=== PATIENT | male | born 1960 | race Caucasian/White ===

== ENCOUNTER 2023-08-16 07:28 | Outpatient (OUT) | payer MEDICARE, MEDICAID, SELFPAY ==
--- NOTE | 2023-08-16 07:56 | VEIN_ITS ---
Patient Name: YRN RICARDO MR#: [id number] : 1960 Exam Date: 08/16/2023 Ordering Doctor: RADHA BROWN RADIOLOGY REPORT PROCEDURE: FACILITY [facility] VEIN CENTER - OFFICE VISIT INITIAL COMPARISON: None. PROGRESS NOTES: [age] year old male who presents with a 11 year history of burning, itching, heaviness, with recent nonhealing wound. The patient's right leg symptoms are worse than the left. There has been a progression of symptoms over time. This increases with prolonged dependency. The patient describes an improvement with rest, elevation, support stockings. The patient denies any signs and symptoms to suggest arterial ischemia. The patient describes a family history of: Unknown family history. The patient has drinking and smoking history of : None. Patient has a past medical history significant for COPD, peripheral vascular disease, deep vein thrombosis, hypothyroidism, obesity. The patient has a history of deep venous thrombus within the right leg. See separate history and physical for medication list. No prior treatment for varicose or spider veins. Current use of compression stockings. After review of nurse notes, history and physical exam I discussed at length the pathophysiology of venous hypertension and possible treatments, therapies and strategies available. We discussed at length the importance of elevating the lower extremities above the level of the heart, increased physical activity and compression stocking use. Ultrasound venous reflux study performed today was discussed at length with the patient. The report demonstrates marked dilation and reflux of the great saphenous veins bilaterally. Moderate abnormal dilation and reflux within small saphenous veins bilaterally. Several large claims administrator veins with abnormal reflux within distal lower extremities (claims administrator veins are adjacent to the right lower extremity wounds and near area of discoloration within left lower extremity). PHYSICAL EXAM: The right leg demonstrates several varicosities, scattered spider veins, open ulceration, marked edema, distal lower extremity skin discoloration. The left leg demonstrates several varicosities, scattered spider veins, no ulceration, marked edema, distal lower extremity skin discoloration. Both thighs, legs and feet were symmetrically warm to the touch. Good posterior tibial and dorsalis pedis pulses were present bilaterally. VEIN/ Facility [facility] Comprehensive IMPRESSION: 1. Marked bilateral lower extremity venous insufficiency 2. Bilateral lower extremity varicose veins 3. Marked bilateral lower extremity subcutaneous edema 4. No known flow significant arterial disease 5. CEAP: C6, DP, AP, OH PLAN: 1. Continued use of compression stockings 2. Elevated legs and increased physical activity symptomatic relief 3. Endovenous laser ablation of right great saphenous, left great saphenous, right small saphenous, left small saphenous veins. 4. Endovenous laser ablation of distal right lower extremity claims administrator veins and distal left lower extremity claims administrator veins. 5. Microfoam chemical ablation of incompetent branch saphenous varicosities bilaterally and sclerotherapy as needed for reticular veins. Nurse notes, history and physical were reviewed and confirmed, see attached forms. The nurse was present throughout the physical exam and consultation Dictated by: Herman Patiño M.D. on 08/16/2023 at 11:00 Approved by: Herman Patiño M.D. on 08/16/2023 at 11:14
--- NOTE | 2023-08-16 07:56 | VEIN_ITS ---
Patient Name: YRN RICARDO MR#: [id number] : 1960 Exam Date: 08/16/2023 Ordering Doctor: RADHA BROWN RADIOLOGY REPORT PROCEDURE: VC EXT VENOUS REFLUX YOAN LMTD COMPARISON: None. INDICATIONS: Chronic venous insufficiency I87.2 TECHNIQUE: Duplex imaging of the lower extremity to assess the deep and superficial venous system for the presence of deep or superficial venous incompetence and to document the location and severity of disease. The study includes evaluation of the great saphenous vein (GSV), anterior accessory saphenous vein (AASV) and small saphenous vein (SSV). Patient scanned in reverse Trendelenburg and standing. FINDINGS: RIGHT LOWER EXTREMITY: Saphenofemoral Junction Reflux: Yes 9.4mm 1.6 sec GSV: Diam (mm) Reflux/ Time (sec) Proximal Thigh 11.0 Yes 4.6 Mid Thigh 9.9 Yes 3.5 Distal Thigh 10.5 Yes 2.1 Prox Calf 12.4 Yes 1.7 Mid Calf 6.4 Yes 4.1 Saphenopopliteal Junction Reflux: 5.7mm Yes 0.9 SSV: Proximal Calf 5.5 Yes 0.9 Mid Calf 5.8 Yes 0.6 AASV: Not present Proximal Thigh Mid Thigh Distal Thigh Thrombi: No acute or chronic thrombus. Compressibility: Normal. Flow: Mild deep venous reflux. Preforator: Mid medial lower leg 7.8mm with 1.0s reflux. Proximal medial lower leg 5.0 mm with 1.5s reflux. Mid posterior calf near wound 6.0mm with 0.5s reflux. Tech Note: Incompetent varicose vein mid medial lower leg measures 4.6 mm with 0.7s reflux. Varicose vein medial knee measures 4.0 mm with 2.2s reflux. Varicose vein anterior mid lower leg measures 4.2 mm with 1.5s reflux. Varicose vein mid posterior calf off SSV measures 5.4 mm with 0.9s reflux. LEFT LOWER EXTREMITY: Saphenofemoral Junction Reflux: Yes 11.0 mm 2.0 sec GSV: Diam (mm) Reflux/Time (sec) Proximal Thigh 8.7 Yes 3.9 Mid Thigh 7.8 Yes 4.7 Distal Thigh 8.6 Yes 1.8 Prox Calf 6.3 Yes 0.5 Mid Calf 4.3 Yes 0.5 Saphenopopliteal Junction Relux: 5.6 mm Yes 3.0 SSV: Proximal Calf 6.5 Yes 1.9 Mid Calf 5.7 Yes 0.3 AASV: Not present Proximal Thigh Mid Thigh Distal Thigh Thrombi: No acute or chronic thrombus. Compressibility: Normal. Flow: Severe deep venous reflux. Photographs Curator: Dist medial/posterior lower leg measures 6.3 mm with 1.8s reflux. Tech Note: Incompetent varicose vein proximal posterior calf measures 7.2 mm with 0.5s reflux. Varicose vein mid/distal posterior calf measures 6.7 mm with 1.9s reflux. CONCLUSION: 1. Marked dilation and reflux within great saphenous veins bilaterally. 2. Abnormal dilation and reflux within small saphenous veins bilaterally. 3. 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 Dictated by: Herman Patiño M.D. on 08/16/2023 at 09:50 Approved by: Herman Patiño M.D. on 08/16/2023 at 11:00
== END 2023-08-16 07:29 | disposition home or self-care (01) ==
PROVIDERS: PCP Podiatrist Foot & Ankle Surgery; Visit Provider Podiatrist Foot & Ankle Surgery
DX: I83.813 Varicose veins of bilateral lower extremities with pain (principal)
CPT/HCPCS: 93970; G0463

== ENCOUNTER 2023-09-02 08:28 | Outpatient (OUT) | payer MEDICARE, MEDICAID, SELFPAY ==
--- NOTE | 2023-09-02 08:31 | VEIN_ITS ---
The [address] [address] Patient Name: YRN RICARDO MRN: [id number] date: 1960 Sex: M Assigned Patient Location: Current Patient Location: Accession/Order Number: [id number] Exam Date: 09/02/2023 08:34 Report Date: 09/02/2023 12:09 At the request of: LEONID SCOTT Procedure: VC Endovenous Ablation 1VeinRT EXAMINATION: VC Endovenous Ablation 1VeinRT HISTORY: Pain due to varicose veins of bilateral legs I83.813 The risks and benefits of the procedure had been previously discussed, and were rediscussed at length. Informed written consent was obtained. Wild Slade RN and Grecia Gardner RDMS assisted. Time out procedure was performed. The right lower extremity was prepared and draped in the usual sterile fashion to allow knee flexion in the sterile field. Duplex ultrasound probe was draped in a sterile cover, sterile transmission gel was used. Venous mapping was performed with the areas of dilation and large tributaries marked. The total length was 72 cm from the entry 5 cm above the ankle to 3 cm below the saphenofemoral junction. The diameter of the right great saphenous vein ranged from 12.4 mm. A 30 gauge needle and 1% buffered lidocaine was used to anesthetize the entry site. A 4 mm incision was made with a scalpel and the saphenous vein was entered percutaneously under direct ultrasound guidance with a micropuncture set, a single stick was successful in gaining access. A micro-guide wire was inserted and the needle removed. A micro-set including a dilator was inserted over the microwire and the needle and dilator were removed. A guide wire was inserted through the micro-set and guided through the saphenous vein to the saphenofemoral junction. The dilator was removed and an introducer sheath was inserted over the wire until the end of the sheath entered the saphenofemoral junction. The dilator and wire were removed and the 600 micron fiber was introduced and placed and positioned so that it extended beyond the sheath and was 3 cm distal to the saphenofemoral or saphenopopliteal junction. Final position of the fiber was determined by ultrasound guidance and duplex imaging. Tumescent anesthetic was delivered by ultrasound guidance. 500 cc of fluid was delivered along the entire course of the saphenous vein. The solution consisted of 1000 cc of normal saline with 40 mL of 1% lidocaine and 20 mL of sodium bicarbonate. A final positioning check was made. The energy source was turned on by means of the foot pedal and the fiber and sheath were withdrawn. The total number of Joules delivered was 3870. The laser was active for 484 seconds under continuous pulse, average laser use of 8 J. Laser start time: 10:06 AM Laser stop time: 10:15 AM Date: 09/02/2023. A duplex ultrasound revealed compressibility and flow at the saphenofemoral junction immediately after the procedure. Hemostasis at the access site was achieved. The skin incision of the saphenous vein was closed with a 4 x 4. A compression stocking was applied. Postop instructions were given. A follow up appointment was recommended and scheduled. The patient tolerated the procedure well. Electronically authenticated by: MARCO LYNN Date: 09/02/2023 12:09
[2023-09-02] MEDS: LIDOCAINE HCL 1% 100 MG/10 ML MDV INJ (08:32)
[2023-09-02] MEDS: 0.9 % SODIUM CHLORIDE 500 ML, LIDOCAINE HCL 20 ML, SODIUM BICARBONATE 10 MEQ INJ (08:32)
== END 2023-09-02 08:29 | disposition home or self-care (01) ==
LOC: VC 08:28
PROVIDERS: PCP Radiology Diagnostic Radiology; Visit Provider Radiology Diagnostic Radiology
DX: I83.813 Varicose veins of bilateral lower extremities with pain (principal)
CPT/HCPCS: 36478

== ENCOUNTER 2023-09-09 11:18 | Outpatient (OUT) | payer MEDICARE, MEDICAID, SELFPAY ==
--- NOTE | 2023-09-09 11:18 | VEIN_ITS ---
Patient Name: YRN RICARDO MR#: [id number] : 1960 Exam Date: 09/09/2023 Ordering Doctor: DR TRINO ISRAEL M.D. RADIOLOGY REPORT PROCEDURE: VC FACILITY EST LMTD VEIN CENTER - OFFICE VISIT FOLLOW UP COMPARISON: None. PROGRESS NOTES: The patient reports no significant problems following intravenous laser ablation of the right great saphenous vein. The patient did not require oral analgesics. The patient has worn his compression stocking. The patient does have difficulty exercising. Physical exam demonstrates some minimal bruising in the medial right thigh. Extensive subcutaneous edema, grossly stable from the prior report. The right great saphenous vein cannot be palpated likely related to patient body habitus. No erythema or warmth to suggest cellulitis or thrombophlebitis. No active ulceration related to the procedure. The patient's lower leg was covered with a dressing Review of the ultrasound performed the same day demonstrates occlusive thrombus extending throughout the treated right great saphenous vein with heat induced thrombus 3 cm from the saphenofemoral junction. No deep vein thrombus. The patient expressed a desire to proceed with treatment of incompetent left great saphenous. VEIN/ Facility EST LMTD IMPRESSION: 1. Successful ablation of the vein right great saphenous vein. 2. Persistent incompetent left great saphenous vein. PLAN: Intravenous laser ablation left great saphenous vein Nurse notes, history and physical were reviewed and confirmed, see attached forms. The nurse was present throughout the physical exam and consultation Dictated by: Trino Israel MD on 09/09/2023 at 12:24 Approved by: Trino Israel MD on 09/09/2023 at 12:26
--- NOTE | 2023-09-09 11:19 | VEIN_ITS ---
Patient Name: YRN RICARDO MR#: [id number] : 1960 Exam Date: 09/09/2023 Ordering Doctor: DR TRINO ISRAEL M.D. RADIOLOGY REPORT PROCEDURE: VC EXT VENOUS RT LMTD COMPARISON: None. INDICATIONS: Phlebitis of superficial vein of rt lower extremity I80.01 TECHNIQUE: Lower extremity nuñez scale and Duplex Doppler evaluation of the deep venous system from the inguinal ligament through the calf veins. FINDINGS: REGION: Right lower extremity. THROMBI: Negative for DVT. Heat induced thrombus in right GSV 3.0 cm from SFJ and extends to distal lower leg. Proximal calf segment of GSV partially compressible. COMPRESSIBILITY: Non-compressible segments corresponding to thrombus FLOW: Areas of no flow corresponding to thrombus CONCLUSION: Post ablation occlusion of the treated right great saphenous vein with heat induced thrombus 3 cm from the saphenofemoral junction Dictated by: Trino Israel MD on 09/09/2023 at 12:08 Approved by: Trino Israel MD on 09/09/2023 at 12:10
--- OUTSIDE RECORDS SUMMARY | 2023-09-09 11:42 | XMS_ITS | CCD ---
Author Organization [facility] Care Team Providers Care Fish Seiner Name Role Phone SERAFIN SHEARER Referring Unavailable LESLY MELCHOR Primary Care Unavailable SERAFIN SHEARER Referring Unavailable LESLY MELCHOR Primary Care Unavailable SERAFIN SHEARER Admitting Unavailable SERAFIN SHEARER Attending Unavailable LESLY MELCHOR Primary Care Unavailable Lesly Melchor Primary Care Provider [phone] CONSUELO DELGADILLO Referring Unavailable LESLY MELCHOR Primary Care Unavailable Lesly Melchor Primary Care Provider Lesly Melchor MD Primary Care Provider [phone] LESLY MELCHOR Referring Unavailable LESLY MELCHOR Primary Care Unavailable OLAF CAIN Attending Unavailab LESLY Concepcion Referring Unavailable LESLY MELCHOR Primary Care Unavailable Dolmegan, Srinivas R Attending Unavailable Dolmegan, Srinivas R Admitting Unavailable LESLY MELCHOR MD Primary Care Unavailable Dolce, Srinvias R Attending Unavailable Dolmegan, Srinivas R Admitting Unavailable LESLY MELCHOR MD Primary Care Unavailable LESLY MELCHOR MD Primary Care Unavailable PETER Redmond Admitting Unavailable PETER Redmond Attending Unavailable Dolce, Srinivas R Attending Unavailable Dolce, Srinivas R Admitting Unavailable LESLY MELCHOR MD Primary Care Unavailable Dolce, Srinivas R Attending Unavailable Dolce, Srinivas R Admitting Unavailable LESLY MELCHOR MD Primary Care Unavailable PETER Redmond Attending Unavailable PETER Redmond Admitting Unavailable LESLY MELCHOR MD Primary Care Unavailable Dolce, Srinivas R Attending Unavailable Dolce, Srinivas R Admitting Unavailable LESLY MELCHOR MD Primary Care Unavailable KAREN ZAPATA, LESLY To Primary Care Unavailable KAREN ZAPATA, LESLY To Attending Unavailable KAREN ZAPATA, LESLY To Primary Care Unavailable Dolce, Srinivas R Admitting Unavailable Dolce, Srinivas R Attending Unavailable Dolce, Srinivas R Attending Unavailable Dolce, Srinivas R Admitting Unavailable KAREN ZAPATA, LESLY To Primary Care Unavailable Dolce, Srinivas R Attending Unavailable Dolce, Srinivas R Admitting Unavailable KAREN ZAPATA, LESLY To Primary Care Unavailable PETER Redmond Attending Unavailable PETER Redmond Admitting Unavailable KAREN ZAPATA, LESLY To Primary Care Unavailable Dolce, Srinivas R Attending Unavailable Dolce, Srinivas R Admitting Unavailable KAREN ZAPATA, LESLY To Primary Care Unavailable KAREN ZAPATA, LESLY To Primary Care Unavailable PETER Redmond Admitting Unavailable PETER Redmond Attending Unavailable Ai Cormier Attending Unavailable [facility] Admitting Unavailable KAREN ZAPATA, LESLY To Primary Care Unavailable KAREN ZAPATA, LESLY To Primary Care Unavailable PETER Redmond Admitting Unavailable PETER Redmond Attending Unavailable KAREN ZAPATA, LESLY To Primary Care Unavailable KAREN ZAPATA, LESLY To Attending Unavailable KAREN ZAPATA, LESLY To Primary Care Unavailable KAREN ZAPATA, LESLY To Attending Unavailable KAREN ZAPATA, LESLY To Primary Care Unavailable KAREN ZAPATA, LESLY To Attending Unavailable Dolce, Srinivas R Attending Unavailable Dolce, Srinivas R Admitting Unavailable KAREN ZAPATA, LESLY To Primary Care Unavailable KAREN ZAPATA, LESLY To Primary Care Unavailable KAREN ZAPATA, LESLY To Primary Care Unavailable KAREN ZAPATA, LESLY To Attending Unavailable KAREN ZAPATA, LESLY To Primary Care Unavailable Dolce, Srinivas R Admitting Unavailable Dolce, Srinivas R Attending Unavailable Melo Quiñones Attending Unavailab Melo Frederick Admitting Unavailab Lesly Concepcion Primary Care Unavailable Allergies Allergy Classification Reported Allergen(s) Allergy Type Date of Onset Reaction(s) Facility (1 source) No Known Medication Allergies; Translations: [No Known Medication Allergies] Propensity to adverse reactions to drug (disorder) [facility] Medications Current Medications Medication Drug Class(es) Dates Sig (Normalized) Sig (Original) acetaminophen 325 mg / HYDROcodone bitartrate 5 mg oral tablet (1 source) Opioid Agonist Start: 03-17-2020 HYDROcodone-aceta minophen (NORCO) 5-325 MG per tablet acetaminophen 325 mg / oxyCODONE hydrochloride 5 mg oral tablet (5 sources) Opioid Agonist Start: 06-16-2020 take 1 tablet by mouth every four hours for pain oxyCODONE-acetami nophen (PERCOCET) 5-325 MG per tablet take 1 tablet by mouth every 4 hours if needed for pain TO LST 30 DAYS 0 06/16/2020 Active Start: 11-18-2018 End: 06-02-2019 take 1 tablet by mouth every four hours as needed oxyCODONE-acetaminophen (PERCOCET) 5-325 MG per tablet Take 1 tablet by mouth every 4 hours as needed. 0 11/18/2018 06/02/2019 Discontinued (Stop Taking at Discharge) take 1 tablet by francesca th every four hours as needed for pain oxyCODONE-acetaminophen (PERCOCET) 7.5-3 25 mg per tablet Take 1 tablet by mouth every 4 (four) hours as needed for pain. 0 Active [id number] actuat albuterol 0.09 mg/actuat metered dose inhaler (5 sources) beta2-Adrenergic Agonist take 2 puff(s) by inhalation every four hours as needed for wheezing albuterol (PROVENTIL HFA;VENTOLIN HFA) 90 mcg/actuation inhaler Inhale 2 puffs every 4 (four) hours as needed for wheezing or shortness of breath. 0 Active take 2 puff(s) by in halation every six hours as needed for wheezing albuterol sulfate HFA 108 (90 Base) MCG/ACT inhaler Inhale 2 puffs into the lungs every 6 hours as needed for Wheezing 0 Active ARIPiprazole 10 mg oral tablet (6 sources) Atypical Antipsychotic Start: 06-02-2019 take 20 mg by mouth once daily 20 mg, Oral, DAILY, First dose on Sat06/02/19 at 0900 Start: 07-05-2018 take 1 tablet by francesca th once daily ARIPiprazole (ABILIFY) 20 MG tablet TAKE 1 TABLET BY MOUTH ONCE DAILY 0 07/05/2018 Active bumetanide 1 mg oral tablet (3 sources) Loop Diuretic Start: 02-01-2020 bumetanide (BUMEX) 1 MG tablet calcium carbonate 1250 mg / cholecalciferol 200 unt oral tablet (2 sources) Vitamin D Start: 02-16-2021 take 1 tablet by mouth once in the morning OYSTER SHELL CALCIUM-VIT D3 500 mg(1,250mg) -200 unit per tablet Take 1 tablet by mouth in the morning and 1 tablet before bedtime. 0 02/16/2021 Active Calcium Carbonate Antacid (TUMS PO) (1 source) Calcium Carbonate Antacid (TUMS PO) Take by mouth 0 Active calcium chloride 0.0014 meq/ml / potassium chloride 0.004 meq/ml / sodium chloride 0.103 meq/ml / sodium lactate 0.028 meq/ml injectable solution (2 sources) Start: 06-01-2019 End: 06-01-2019 lactated ringers infusion cetirizine hydrochloride 10 mg oral tablet (3 sources) Histamine-1 Receptor Antagonist Start: 11-08-2020 take 1 tablet by mouth in the morning cetirizine (ZyrTEC) 10 mg tablet Take 1 tablet (10 mg total) by mouth in the morning. 0 11/08/2020 Active citalopram 10 mg oral tablet (3 sources) Serotonin Reuptake Inhibitor take 1 tablet by mouth in the morning citalopram (CeleXA) 10 mg tablet Take 1 tablet (10 mg total) by mouth in the morning. 0 Active DULoxetine 30 mg delayed release oral capsule (6 sources) Serotonin and Norepinephrine Reuptake Inhibitor Start: 02-14-2021 take 1 capsule by mouth in the morning DULoxetine (CYMBALTA) 30 mg capsule Take 1 capsule (30 mg total) by mouth in the morning. 0 02/14/2021 Active Start: 01-13-2021 take 2 capsules by m outh once daily DULoxetine (CYMBALTA) 60 MG extended release capsule TAKE TWO (2) CAPSULES BY MOUTH ONCE DAILY 0 01/13/2021 Active Start: 06-02-2019 take 1 capsule by mo uth once daily 120 mg, Oral, DAILY, First dose on Sat06/02/19 at 0900 Do not crush or break. May add contents of capsule to apple juice or apple sauce, but not chocolate. Start: 07-23-2018 take 2 capsules by m outh once daily DULoxetine (CYMBALTA) 60 MG extended release capsule Take 120 mg by mouth daily 0 07/23/2018 Active 0.4 ml enoxaparin sodium 100 mg/ml prefilled syringe (2 sources) Low Molecular Weight Heparin Start: 06-02-2019 End: 06-16-2019 enoxaparin (LOVENOX) 40 MG/0.4ML injection Inject 0.4 mLs into the skin 2 times daily for 14 days 28 Syringe 0 06/02/2019 06/16/2019 Active Start: 06-01-2019 enoxaparin (LO VENOX) injection 60 mg 120 actuat fluticasone propionate 0.11 mg/actuat metered dose inhaler (5 sources) Corticosteroid take 1 puff(s) by inhalation in the morning fluticasone propionate (FLOVENT HFA) 110 mcg/actuation inhaler Inhale 1 puff in the morning and 1 puff before bedtime. 0 Active take 1 puff(s) by inhalation twi ce daily fluticasone (FLOVENT HFA) 110 MCG/ACT inhaler Inhale 1 puff into the lungs 2 times daily 0 Active folic acid 1 mg oral tablet (3 sources) Start: 01-26-2021 take 1 tablet by mouth in the morning folic acid (FOLVITE) 1 mg tablet Take 1 tablet (1,000 mcg total) by mouth in the morning. 0 01/26/2021 Active gabapentin 300 mg oral capsule (1 source) Anti-epileptic Agent Start: 02-28-2020 gabapentin (NEURONTIN) 300 MG capsule 1 ml HYDROmorphone hydrochloride 1 mg/ml cartridge (3 sources) Opioid Agonist Start: 06-01-2019 End: 06-01-2019 HYDROmorphone (DILAUDID) 1 MG/ML injection Start: 06-01-2019 End: 06-01-2019 HYDROmorphone (DILAUDID) inj ection 0.5 mg insulin lispro 100 unt/ml injectable solution (2 sources) Insulin Analog Start: 06-01-2019 0-6 Units, Subcutaneous, NIG HTLY, First dose on Sat06/01/19 at 2100 If continuous tube feedings/TPN/NPO, give correction dose based on result, no reduction in dose. If eating or bolus tube feeding: Medium Dose Corrective Algorithm Glucose: Dose: If <139 No Insulin 140-199 1 Unit 200-249 2 Units 250-299 3 Units 300-349 4 Units 350-400 5 Units Above 400 6 Units Start: 06-01-2019 0-12 Units, Subcutaneous, 3 TIMES DAILY WITH MEALS, First dose on Sat06/01/19 at 1300 Medium Dose Corrective Algorithm Glucose: Dose: If <139 No Insulin 140-199 2 Units 200-249 4 Units 250-299 6 Units 300-349 8 Units 350-400 10 Units Above 400 12 Units 1 ml ketorolac tromethamine 30 mg/ml cartridge (1 source) Nonsteroidal Anti-inflammatory Drug, Cyclooxygenase Inhibitor Start: 06-01-2019 End: 06-06-2019 ketorolac (TORADOL) injection 30 mg levothyroxine sodium 0.075 mg oral tablet (6 sources) l-Thyroxine Start: 06-02-2019 take 150 ug by mouth once daily 150 mcg, Oral, DAILY, First dose on Sat06/02/19 at 0700 Tube feeding (TF) interaction, obtain physician order to manage, recommend holding TF for 30 minutes before and after dose. Start: 07-23-2018 take 1 tablet by francesca th once daily levothyroxine (SYNTHROID) 150 MCG tablet Take 150 mcg by mouth Daily 0 07/23/2018 Active take 1 capsule by mo uth in the morning levothyroxine sodium (TIROSINT) 150 mcg capsule Take 1 capsule (150 mcg total) by mouth in the morning. 0 Active loratadine 10 mg oral capsule (3 sources) take 1 capsule by mouth once daily loratadine (CLARITIN) 10 MG capsule Take 10 mg by mouth daily 0 Active LORazepam 0.5 mg oral tablet (5 sources) Benzodiazepine Start: 09-08-2020 take 1 tablet by mouth once daily as needed for anxiety LORazepam (ATIVAN) 0.5 MG tablet TAKE 1 TABLET BY MOUTH ONCE DAILY NEEDED FOR ANXIETY 0 09/08/2020 Active Start: 11-03-2018 LORazepam (ATI VAN) 1 MG tablet TAKE 1/2 TO 1 TABLET BY MOUTH ONCE DAILY NEEDED FOR ANXIETY EVERY 30 DAYS PER OARRS 0 11/03/2018 Active Multiple Vitamins-Minerals (THERAPEUTIC MULTIVITAMIN-MINERALS) tablet (1 source) Multiple Vitamin s-Minerals (THERAPEUTIC MULTIVITAMIN-MINERALS) tablet Take 1 tablet by mouth 0 Active multivitamin capsule (2 sources) take 1 tablet by mouth once daily multivitamin capsule Take 1 tablet by mouth daily. 0 Active ondansetron 4 mg oral tablet (2 sources) Serotonin-3 Receptor Antagonist Start : 06-02 take 1 tablet by mouth once daily as needed for nausea ondansetron (ZOFRAN) 4 MG tablet Take 1 tablet by mouth daily as needed for Nausea or Vomiting 30 tablet 0 06/02/2019 Active Start: 06-01-2019 ondansetron (Z OFRAN) injection 4 mg 24 hr oxybutynin chloride 10 mg extended release oral tablet (5 sources) Cholinergic Muscarinic Antagonist Start: 07-23-2018 take 1 tablet by mouth once daily oxybutynin (DITROPAN-XL) 10 MG extended release tablet Take 10 mg by mouth daily 0 07/23/2018 Active take 1 tablet by francesca th every twenty-four hours in the morning oxybutynin XL (DITROPAN-XL) 10 mg 24 hr tablet Take 1 tablet (10 mg total) by mouth in the morning. 0 Active oxyCODONE hydrochloride 1 mg/ml oral solution (2 sources) Opioid Agonist Start: 06-02-2019 End: 06-09-2019 take 5 mL by mouth every six hours as needed for pain oxyCODONE (ROXICODONE) 5 MG/5ML solution Indications: S/P laparoscopic sleeve gastrectomy Take 5 mLs by mouth every 6 hours as needed for Pain for up to 7 days. 140 mL 0 06/02/2019 06/09/2019 Active Start: 06-01-2019 oxyCODONE (LORETA ICODONE) 5 MG/5ML solution 5 mg pantoprazole 40 mg delayed release oral tablet (1 source) Proton Pump Inhibitor Start: 06-02-2019 pantoprazole (PROTONIX) tablet 40 mg 1 ml promethazine hydrochloride 25 mg/ml injection (1 source) Phenothiazine Start: 06-01-2019 promethazine (PHENERGAN) injection 25 mg rivaroxaban 20 mg oral tablet (4 sources) Factor Xa Inhibitor Start: 03-14-2020 XARELTO 20 MG TABS tablet salmon calcitonin 200 unt/actuat nasal spray (2 sources) Calcitonin Start: 02-14-2021 calcitonin, salmon, (MIACALCIN) 200 unit/actuation nasal spray daily. 0 02/14/2021 Active 3 ml sodium chloride 9 mg/ml injection (2 sources) Start: 06-01-2019 sodium chloride flush 0.9 % injection 10 mL traZODone hydrochloride 100 mg oral tablet (6 sources) Serotonin Reuptake Inhibitor Start: 11-04-2018 take 2 tablets by mouth once daily traZODone (DESYREL) 100 MG tablet Take 200 mg by mouth nightly 2 11/04/2018 Active take 100 mg by mouth once daily trazodone HCl (TRAZODONE ORAL) Take 100 mg by mouth nightly. 0 Active take 200 mg by mouth once daily TRAZODONE HCL PO Take 200 mg by mouth nightly 0 Active verapamil hydrochloride 120 mg extended release oral tablet (3 sources) Calcium Channel Yesika Start: 06-02-2019 take 120 mg by mouth once daily 120 mg, Oral, DAILY, First dose on Sat06/02/19 at 0900 Do not crush or chew. zolpidem tartrate 5 mg oral tablet (5 sources) gamma-Aminobuty christine Acid-ergic Agonist Start: 11-03-2018 take 1 tablet by mouth once at bedtime as needed for sleep zolpidem (AMBIEN) 5 MG tablet TAKE 1 TABLET BY MOUTH AT BEDTIME NEEDED FOR SLEEP EVERY 30 DAYS PER OARRS 0 11/03/2018 Active Completed/Discontinued Medications Medication Drug Class(es) Dates Sig (Normalized) Sig (Original) ceFAZolin (ANCEF) 3 g in dextrose 5 % 100 mL IVPB (1 source) Start: 06-01-2019 End: 06-02-2019 ceFAZolin (ANCEF) 3 g in dextrose 5 % 100 mL IVPB 1 ml heparin sodium, porcine 5000 unt/ml prefilled syringe (1 source) Unfractionated Heparin, Anti-coagulant Start: 06-01-2019 End: 06-01-2019 heparin (porcine) injection 5,000 Units 2 ml midazolam 1 mg/ml injection (1 source) Benzodiazepine Start: 06-01-2019 End: 06-01-2019 midazolam (VERSED) injection 2 mg Start: 06-01-2019 End: 06-01-2019 midazolam (VERSED) injection 2 mg Problems Active Problems Problem Classification Problem Date Documented Da te Episodic/Chronic Anxiety disorders (3 sources) Mixed anxiety and depressive disorder; Translations: [Anxiety disorder, unspecified] Onset: 12-03-2018 12-03-2018 Chronic Chronic obstructive pulmonary disease and bronchiectasis (3 sources) Chronic obstructive lung disease; Translations: [Chronic obstructive pulmonary disease, unspecified] Onset: 12-03-2018 12-03-2018 Chronic Conduction disorders (8 sources) Cardiac pacemaker in situ; Translations: [Presence of cardiac pacemaker] Onset: 08-19-2020 05-14-2023 Chronic Nutritional deficiencies (1 source) Vitamin D deficiency; Translations: [Vitamin D deficiency, unspecified] Onset: 06-24-2020 06-24-2020 Chronic Osteoarthritis (4 sources) Primary gonarthrosis, bilateral; Translations: [Bilateral primary osteoarthritis of knee] Onset: 11-10-2020 11-10-2020 Chronic Other diseases of veins and lymphatics (3 sources) Lymphedema; Translations: [Lymphedema, not elsewhere classified] Onset: 12-03-2018 12-03-2018 Chronic Other nutritional; endocrine; and metabolic disorders (7 sources) Body mass index 40+ - severely obese; Translations: [Morbid (severe) obesity due to excess calories] Onset: 12-03-2018 Resolved: 12-21-2019 12-21-2019 Chronic Phlebitis; thrombophlebitis and thromboembolism (4 sources) H/O: Deep vein thrombosis; Translations: [Personal history of other venous thrombosis and embolism] Onset: 12-03-2018 Episodic Pulmonary heart disease (4 sources) H/O: pulmonary embolus; Translations: [Personal history of pulmonary embolism] Onset: 12-03-2018 Episodic Thyroid disorders (3 sources) Hypothyroidism; Translations: [Hypothyroidism, unspecified] Onset: 12-03-2018 12-03-2018 Chronic Unclassified (2 sources) Drug therapy finding Onset: 12-03-2018 12-03-2018 Unclassified (1 source) Device Check Onset: 05-14-2023 Past or Other Problems Problem Classification Problem Date Documented Da te Episodic/Chronic Essential hypertension (3 sources) Essential hypertension; Translations: [Essential (primary) hypertension] Onset: 9 Resolved: 0 03-21-2020 Chronic Other acquired deformities (2 sources) Karely legged; Translations: [Varus deformity, not elsewhere classified, left knee] Onset: 1 12-21-2020 Episodic Other aftercare (1 source) Drug therapy finding; Translations: [senior living (current) use of anticoagulants] Onset: 9 12-03-2018 Episodic Other circulatory disease (2 sources) History of paroxysmal supraventricular tachycardia; Translations: [Personal history of other diseases of the circulatory system] Onset: 2 04-18-2022 Episodic Other gastrointestinal disorders (1 source) History of sleeve gastrectomy; Translations: [Bariatric surgery status] Onset: 0 06-01-2019 Episodic Other lower respiratory disease (1 source) Restrictive lung disease; Translations: [Other disorders of lung] Onset: 0 06-12-2019 Episodic Other non-traumatic joint disorders (1 source) Pain in left knee; Translations: [Pain in joint, lower leg] Onset: 9 12-03-2018 Episodic Other non-traumatic joint disorders (2 sources) Knee pain Onset: 9 12-03-2018 Episodic Other screening for suspected conditions (not mental disorders or infectious disease) (2 sources) Cardiovascular stress test abnormal; Translations: [Abnormal result of other cardiovascular function study] Onset: 1 08-22-2020 Episodic Residual codes; unclassified (1 source) Obstructive sleep apnea syndrome; Translations: [Obstructive sleep apnea (adult) (pediatric)] Onset: 0 Resolved: 1 12-26-2020 Chronic Residual codes; unclassified (2 sources) Chews tobacco ; Translations: [Tobacco use] Onset: 1 12-21-2020 Episodic Superficial injury; contusion (2 sources) Traumatic blister of lower limb; Translations: [Blister (nonthermal), left lower leg, initial encounter] Onset: 1 11-10-2020 Episodic Syncope (2 sources) Syncope; Translations: [Syncope and collapse] Onset: 1 02-23-2021 Episodic Results Test Name Value Interpretation Reference Range Facility Wound Care Noteon 08-26-2023 Wound Care Note [id number]. [id number] Coding Summaryon 08-23-2023 Coding Summary HTMLBase 64 JowwardjMZu8aXt+PGhl YWQ+VH4PCQMfX91ugEJe fS4pY7HXLUbVGcytVSRE ZJyNViQrjjVoHX5qzPMu ZXJu IC8+SW5cXECrRuwidNHe k8R3vTN9T45pfz5zSLae uJV3GKEgVaZjbgjbs6ag vRq1LXgdQrvuAzZu PCJseT85TEE3bL04Dp56 bIDisUEvq8tepQx5XoXg HKKlYDE6dZjcYNaxk6Te BIOoS17uqHNrp3A9 IGNvbGxhcHNlOyBlbXB0 bM6aQCcrgdkgx0tywqjn Euq4qb52pUSoi9Q9oCK4 Y3PuyjT9VOTthQLi FuhliYSDyS5cqavff6on wsusIkJyZREuIXg8FTo3 RMCyvAmrZrLuKT57YVK1 HBOzveSmH5EaFDSk eYkeSaP2f7R3Xi0DC6HB HzewQ1CNXTUSCArkfUU+ LZ52vq43L0XqEjsrZza0 HIQbWIZ4eGT6oL6s BTQzFQlbz1W1tGM8C8Om ktOoum1gh9ozCKYhLQsp W60ocRFit1E8ZUNiaOD5 UHYapCjuGcHqzB39 Oyc+GGJsaPlux4YcXboq y1uku3ebrUf9ZgobODKr chXlhSlzFHU1z1PdYp3j KSWriBJ5zVE8zD2n LjQwFkO0LQafN627WvQc hYNnMwgiF74nA5XlqEX+ JQWmOfn6MBQzoXbiIQ6m B0SaAIJnojmyxEPv xUxmTK0kZIDnvlfqMBFp jF1vNARnI6q9XdVpFbY0 MWfnZ0VaOLAaxzkkHj64 eZ8dYqJaGwW0NKrj N7MdayI6YKJcyUAyWNpi ELY8P08wz7Q6UDLaYTPb OHM8qOA6pA2zpWqhvron bGVmdDsgdmVydGlj SBdiLYhlF147CNAojNeo PkNvZGluZyBEYXRlOiAg MDQvMTkvMjAyNDwvdGQ+ BOOjFRY0mEpbZHHv wZDhBMdqOc1quDabsAbo KD9lSJLydxpyUYIpfW5n YOEgbGMlfHvaST3cLMTz lncax134AgGkZGI7 XYParBLpC4TxbI9oStHs LWDeWMFzL6BowAYtPFdr G576KTybZlW9HMMsmaIb J2FjZGRsfNjkKcU0 r6B0Uu9Wy2WmrzogG3Og zCQvCfYkMhacMNf3B1Wk PjwvdHI+TZ93WIIqAP78 IUb1BHN6wVlnYQeg USFwT3WteV4tKuYrZUVl ZGRkOyc+PHRhYmxlIHdp ZHRoPScxMDAlJyBzdHls YR4cMo4eNNQqOGBg fDznoDWpUxPub4ivQOFw KZeqTV4bpNubG2QrtCU2 ORTof6g9Gd54C84pB3Gx dXA+SGKtfRT9wRU6 iQ3lOlWbUiM9UWorF027 VqCwbUMgSjwya3jva6lh aHz1JhH4YFSzevLgpBzj COD8t8LnTn46Y80k IHdpZHRoPSIxNSUiIHZh eYqreh6shL3aZg5+PGNv eCA2lOG9dT1zJyGmOoE8 QKybK220XrCdmBId Pjnrm4ene2dmtPx7TyKa TTTaorIywEiwVWL6c3Or Vj80W2IsyYpmp6BnFem9 pw78uWKds0J5tUW9 J3GtSACsvgeqwHZkeRzg LY6dUTNwuxygSXRlvN1d SGTxH3d6XiYlHzB9WLtb Z1MscvL2CGQnaHMa ZJZcoRLJcD9aezjzb7bf lopmLqInPCSbZUd8NAb4 ZVPjbOrrXyAbJSY0NuH0 FXI6yJUpoF7qfKpk sdjkbQ9xOrs+VZG9oEYj sJSILY1oMfksyZK+PHRk ZRY0sJqsVImtVBBchR8u HKYgM6u4TiFlXrF5 YJtwP1WmodT8RCFvfGJd RBVzwWFTbJ2ykvuor8xy kjfkEhVyCIYwDIu1YVx5 LWFsaWduOiBsZWZ0 KgF7BAF0vDXosP4qkCmm yjjxpH8xZgr+QmlydGgg UUA6TUb3W5LoQds3CYBy bQyfVY7alOTwSEml Go3sfPdpfUasIF0nJXRz yhcih785PcXex4ffNBOt zXVqCJjyPFO5M38qe3Q3 GJCvFYMaEXT8pHT4 qV0bzCfzqntmeROqoJvb ahWgnVkxSNlvHDojS372 NJWcoNlcBjPbLLg5R4Vc Ajt8GQOxeCtwOS4p iGCsNPcpWh1klNegfJyu KL4kCZAaijqet023UuKz v4seYIRerWKgLErtCZL3 A83ai2K5TNZfRRQi OCS2sOT4kZ9sjWuxlmph bGVmdDsgdmVydGljYWwt KZegU792JGCudPrvPuAq pRs1L7NlGjl6TDWx jRgvRE4zbNPsZDfxTt5d qXwajXqgJA2yISVaubzx a483ErPru7puFQJjcABb DCjpGGN0B97ap3K5 IABdQVEuQNH4vCN5aQ7j bGlnbjogbGVmdDsgdmVy nWrvWZvpERwqP654BQLn cDsnPlBhdGllbnQg IPbfVTy0F8YpNeufaAK+ UC23WZXsXY53rSKgsXYz y6flaTj6DgKdPCTwQLQ0 tWuoSNups1LjWHDk T80vkKEim0I9WTHsrXpq oLOsTyEjrEZ3iA2bSOqe wcstn7ldegrlQaqml8hp wg48gM51E45iIGjk ZHRoPSIzMCUiIHZhbGln zz5ucB3wXg2+PGNvbCB3 qNX4yI0wONMdTcZ9RXez H653QfOloPHxBnxm p8rag3brdAu7NqY8HAQg sqZchAbwYRM9s5UnXu34 G35wOZioTZBhCSHkAOJv SGGwjNlxrj3ydF1y Ii8+WPAkgQO1vSI0jW9q KlMoJwH1DSagZ852YhAj tUUmLyigJ85gD3LdtVU+ AYJmZla2WFSzhJas EO4xrQPmMBhgNj4wFNE6 HqWfUlFfHDlyV8WbQHVk gsrdrvibrQK5SSRaOIHg mJ68Qm0orLuyIRVu lHNMxP7bsoyuy1mhavkf MhUhGGCeKFq6ORh6OPHi jZlkTbSbOFA1BxC9VOA8 vOSivP2dzLaznvkc qD6eW6WlTGVwoydkSa38 mH9wPoSxEpB2XRexToa+ K3LSIbdjXY6VO4cRQTsh SzwvdGQ+PHRkIHN0 qLljHLfjTUEwqA5kLQDp R1l5QaWpThH3DNaoS8Gw CYObqikoCk99mK5tEtFr GnA3WVvvV6GgwaD4 CQErhZNaSMxqKGJ1V64a u0S3PHKtEHYlVLY4jGP1 tP4dvUanoqfefDMamHfg dmVydGljYWwtYWxp J505RHSbsQtiOkTuZqM3 WmW0JnB0H9ZtTjz7VLIp lAveZJ4cmSEmZOpxYd6m nXrrpXfjQO7bNWVl eppgCHLdaM7zHAYjjPTn wKlhOQ0xSBFjwntln842 ZvDjBQA1SPKloQDwF3Ky rO7fVbLgNKMpIIKb F5QwqTQaSIxxZ740LMgk PhR8QMRzmfGcV3RvROOr qMnaGpC1i7G2Ax60CJJL ZWFyczwvdGQ+PHRk VPO7lQfxZUqmDLTthD1e CMOeF9p6RlOmRqX1QQnc L6RtMUEubsydLp11rF9e KjLzEtZ9WBfoI8Sc vwI5LQGkyUIeZQzhDNQ7 F19mg2S1ASRmQXHxBJA9 zSO2fD3fyBkreeugfVYa dDsgdmVydGljYWwt QRipI626PAYjeUygMc3R SWG8X1TnPqa2PEZjbIim XA3gpZDcJZgzKp5asNpf vYspCV0xOFNjuuiz TRNdyZ6wCPEffNQuxPhj OD8tXOTsuwsmx948SuNs FWZ4YBDztZFkO5IznS1z CoRkBRLuICMgF6Ih zCVkLEbiT557TTmaKsK9 TPBjpeOvN5WjLFYlkSot KfL7n3C9Cv1RWYmxfQV+ OA91cy53P9GxYvhz Rkm1LYJpSGF1vQN8xC8j IAPeHCwxi7A3kQN1P8Ye vgAhki4cb3szWJCzHIbo C87pyNWse9H2GPJh oIF0CJJrjXavPzNrmM04 Oyc+UGNbzWffr5ZuOkgt o8lmp0fmvAe2HaKoOKVk hpNxqCmdRHO5l3Ie Fv35M32xOTouTPRmQIEa RRQoGLFfgFrvev9ztV1t Ii8+JXVrsAZ0cUT7wP2v AtNjXwO3XGsvK509 QpBnbAAwTaeyi3qoe0ns kCf6NfNhLKFyezErnVfc UQZ4n5JkKo14S5OnyLyg o9TxXid1mk94eXJu v1N9aGQ2P5UwFARpqktv vBLmmTrzUL0iCFWdynxj HAWtaD4yGGHvK4q6QmJm HaH3DYiaD4WrkkF1 BFMeiMPlFICqzLCRzX7i fxzke8diuwnuPmRbZXMa PLk9ILm1SAMjsEnnJdAj EXF1KaC9WWY8tAJe cW2fzMmgseuuuA2lQws+ UNu9o7xmaDRtJO8ngQO5 CL49KN97eQLgd2K9pCU9 Z8LhZPAiblnzffmr kEK9ZVSnPZSuoU77Ux4z oQhbVv9gZMUzNEP9SHOi oYPgN4NlfF2cDwMoQAFr LWGjM0PeqLHjZXsk K923DAztTcZ7FAXlnvWs A5QsTVThzQixVwB1c7F7 Ox4JWU35JH15OX29zOQu e8B5aGH4P7CqDERr xmophyaqyIR0JNAaHNQl oS43Vf3mkHnkFg5eRRYh QZG2CLQjcQDdF0GajP0x StWsUGHpZJTmQ9Zk pYMtDOscW399PWbfVvI0 NLAmilMsD7UjABUqgYda RlW9n5J9Be6NAt97UF45 LL07pWQgo8S3dQP3 P1XoCWQgnikngyuwwFS7 HARtGTLnjQ32Fd8hvZkm Ts2nGEUsKNZ5OKVecEJl M0ZmeW9yKyJiRMVv ORWnW8TgpXSjIGwrZ028 DWzbCpX3UJDpunSlD3Ug VRWmmSfjZdJ1a7Z9Yn4C IRelloj9T0NkTigz dHI+IN31YBUgVY05uQFv cMUhd4vxkNx5JrViBONo LFV1qIxcIZqoq6OnAJBm E90xlTEci7G0YZXu bGx (more content not included)... [facility] Noteon 08-19-2023 Wound Care Note [id number]#1. [facility] Coding Summaryon 08-17-2023 Coding Summary HTMLBase 64 BbtqjitrRMm5eTn+PGhl YWQ+KA3JDCWnV85qqPDj rL8dU1NQHJuGCkflLRIQ RWeZBgXvvjQfBZ7gtYXb ZXJu IC8+BT9fYYCtTunvfQWi v1W1fUJ6U27jce1jODjw wKM9KYGbCsAtpnbnt8we aQl6JNsbKticOhGp WOWufG13NLG0fV68Ql32 eOFkvAYxf2ctcSd5ZjCj ZNHuYJD7kScwKBjzp7Ah FEZbF40chICml5Z1 IGNvbGxhcHNlOyBlbXB0 gZ1pWBrbbdqjd9mkqxdb Zrx7jd73aKOhe4D7yLV3 L4PnvmG0ETUguTLw MxnxrSDSjQ6tomtyn1wb mgwiWpXfTZXhYCh9OLs7 FOVjeCkeOyMcAQ17TCI2 ZZLmhaXjF7WhBBXe nGckUoZ2o1M8Bp0KP0DP NhgfF9KSSNAQTAcdsQZ+ YY38ms29H1IrHaqfKeh0 VFDmXUG4qXR9kH0b YPQhEVcbo0I1tIS7Q8Lr fjOwde4mu7vrFFIeJMob B25pcKQpw3Z9PASjlQJ3 EJIryLlsVdEmiY29 Oyc+SOYgfLplx3TuFrkv g3hdb1nufLb2CgzbFHRd gyJbfKniMKY8i7LvMb1i YNJlnKG0eWP2rK9t JmTgHkQ7SWzoC627GpRz gECcRcgpE70lN2EybHY+ YADtEic3WBFmnTpdFE3c Q6IkVWBuphiaaFRx dBwkUU8wERUwggpnNRAx rJ0dSLBqT7m8QpJnRxU7 HWmuF7BxRHJztcvuAd09 rX5pXvOtZmC8PAra F6EthiP1DZEtcJQpCZza IUU5O69lf4A3JGQdCTMx VGR9xKC4mH9yjQatklwb bGVmdDsgdmVydGlj DOycZCjnV003ZEKipRbl PkNvZGluZyBEYXRlOiAg MDQvMTMvMjAyNDwvdGQ+ JKTkBLY0oItjJQJl bBVuWMwkRh5cgWdorOcm PZ0bAKOprythJFQqsJ6p EVFrbJUruBkxKW0oTTBp zibkz538SzBxWNB4 QDYqqYCkX4KakQ6sTnRr AQPsNJXtC4RqjHBzNIgx T992PIgdFwG1OQKxfuTq Z1IdLASfeIctKlT4 l5R1Pt8Zl9XtiuuwW6Pb aFWnVuDbAlsuQJa3S1Ma PjwvdHI+XY50OPTwSQ04 SXj4JYE6iRdpAAqx HKYyT5AuaI4cVnRhSYMq ZGRkOyc+PHRhYmxlIHdp ZHRoPScxMDAlJyBzdHls YD8kPk0dYOWcFOIs qBoihBFcRlRpl4niNHNx OUusFD5uwZlnL2OtgUD2 MMTgg8o1Vo87T10uR5Rq dXA+DCOpaHY8aGE6 mD7aAlKtAxF9TIesK352 MsVyiLEqTkenk5ttf3wq yBb5XuG8OXTythZkpYbs HBD6a0SrLw13Z60d IHdpZHRoPSIxNSUiIHZh dUctqt4uqY0eIs2+PGNv kPG5uHB7bG3kFgAuWpC7 KAnmO205YqKpkOZj Piuhf1lma1lxbSz7YuTq ZMRzvgJcmBkmHPL4s0Rg Uz67A5ZvkObtq9GeDtf7 pd89sFYme2O6jTP6 Q4JkLKJjuiwpxSLazDri AI8kMBAnbwohJUIysK1j VDCaX5d8YoPkLgR8EVls I6GhsfS0IDHdsDUr VBEucTKIcY0gdiovp6gb yevjUpUuPJOrPBs7ZSd1 TQJooDalLsGfMNP9PrA7 QGG9hYWycU9jeMjk zgscfW6bIev+CDT4eCAu yWIDSL5gYazpwWF+PHRk FDZ5bMwlDZjcRJTnlV5y WOGcI7l0XgBkOfG5 OXrzE7UvkyP0CYJdeMSf ECPyzASGyR2kexrvf7ze cykcFuOtXCLnMTd3OAj7 LWFsaWduOiBsZWZ0 GiO2RVL0vGRzcK2ogLqd uxjofG6qPbe+QmlydGgg GEG7WRp5K1CbBna9VPBr vYcxZW7wsPVtCYlu Ba6tfJrnwFpbKC7kKSWa ixbgd265NmZnp1rlYBGm dZBxJCgvJGT7Q43zx0S6 GFVdXYVrTIQ1bSZ0 eM3xmPbhwtcnxUCqhGje deXpfDbtUSjkMHbuZ960 STEexEbcPgEsZBe5T0Oa Pyr9PXVqmVlaAX6g rSMpMLrmGl5hcOkbwRnc WM8rMHAlnmvis641SeXa y9fbEUOgsCMsXTyeMEZ1 I47jz4G6CWOiTABc EEI3xSE9tV7ikOxwvxdt bGVmdDsgdmVydGljYWwt UGiuU101SIXolDvdDzCz xIi4R4FnRyh4VFMl aKxsOR0irCVzSIonJy2a wDwesBonZS8uJFNeobol m735ErRve3zqDRMvtBOh FLjhHWD0O69ct0V2 WXAuMIIeRHH8jEE7tD0a bGlnbjogbGVmdDsgdmVy vVigMSbiVIvmR828VERa cDsnPlBhdGllbnQg KAifUXb8E2DhNhhnlPS+ FI54CNXcLL28nVKufWHs u1tteBn4DvMtBZDzWEW5 cJxzZRlsb1PkJVVb Y08bzGLkd5D1NFJvvPcw pKOjDcDzjKI2uH9eTKjb niugc3sbrjnhVknxf7vo oc46vF46C25bCPlk ZHRoPSIzMCUiIHZhbGln uf8soH7xGc4+PGNvbCB3 zPT6iK5xFLMhPzN4VXbc S444RdHtqCKiQxdw w5enf6emrLq2RvJ5WTDv svKotBzkEAT0u3TkPe85 E60wSDabQXWjYKNmMHNq XOAdzPlosi2mcE3n Ii8+TVDifZN6iZM2eG1e GdIrRbB7FIuhC246UpLu bVZcRsivX42fP2BfzJI+ SDFsCjg4XZQxyShz NR8fzGRwTGojLu2nPMY0 FxLlHkBjLTvmP2PhDZDu sedajctajUE5SYMeDBWm dP19On0lfKzkCTYu aXJMvI3qosqkr6jsywnf HbQfDPFmDPq6UMx3TXVd eNusWiRzNLV3LcM9YIC4 jOYdsO8kqAkrynxb lN8cD1YnETUepikmNx39 mF7aShWjGhI9SDlgUyr+ X5UMAlafJR5WN0qLFXqo SzwvdGQ+PHRkIHN0 aBphXUyiAQDwqQ4jCPBb U0g9CdDqMsL2MOxqT2Uq KESchjtiEy37zQ0nSmEp HzJ1TIhbM3YynqX6 HBVelWGaLOowPWA5L07o t8J0TCZmHTMxXTF6zDO8 gH3jcAtzsqayyPCztBdb dmVydGljYWwtYWxp F731TTPakPzwHkIbWnA5 JsP5GzG6Z5SxTom5ULEw gTzmVB7jvUWwTGqwLz4l nOlmxUhoLU7hIFPb avdhWRWygH9kDENnbXDl pSkoFU7tVYKremafo977 DdPwIYM8AXNxxUTtB7Gw aY3hAcZsEAVhUIVd M5OlzWPtOErtT506YIhy JrJ5BKSuihLlJ2ToCNUv lSwqQrH9d0Y6Fx61AZXF ZWFyczwvdGQ+PHRk QCR2kHkiHDrlNAPqlA9j JYHcQ7v4SyFlEaV6OOmr X4GjHTFxmakxDx92iM5m AtHvBcP7KJxgY2Ft umN3RWDqlNQmFWzfJIW2 B54lw8B3TJIsSZTwZJI1 jJP5fA5vdJbgwxmboMLx dDsgdmVydGljYWwt XHejD773EGNblAqeJb2L QHH1B4MxRoe0ZKPojPyd ZN5kzBHbUKhwIl2adVrv cWboZA0hDGXvdajr RAHicH0pLMJbmPOmmBub HM8lUTJpqgysf305CkFw SIE0INJveUMsO3MznG7n MxBnUVDiBPCfL2Li oUVkVNrsJ452BAqcIeN7 KYXxknHuU5ByQOWtbZoj FsI6n4S5Qv3YVZuuqWF+ TB06sn04I5NlZcyo Hoj3STDoPBM8zTD5oP6c TOCzHWtze3S8gLG7T2Zc htNhfu4fg2ohVKRqEOdw M05cbWKxt7U7ZNOn nZR9OXZjpUwrLkHzbV86 Oyc+LHZwjUluy3NtSnkj g8acj2yktPz2IhRsGUHv msWapLfzSXJ8y7Zy Zu23Z87dEUgwQSXqTTFe TYMkGSFdyUifml4wwJ3m Ii8+MUJscYZ3nFE8sD2v BlKkMoC4NAmfR125 SdGowDCtPvyrd0dlo7kb uFi0BpJkAWOcrzArzTcb OGC4e7PqBp77T5MxuDdj b7IcHyu1tz31vXJp o8L1hBR2O7VjBKCeiyde nFZjhMbsMH2sGQUyzvov HUSvpC0hOIBzN3j1UmDv MiV0POuzG9ZphmD3 WPOcgWVeOFGygPOMrV8o bakql5tmcxluMhHjLHIj XDh7RPm8ASZilHrtIkXm KQC4CxC0VOQ3sKHr oW1ytPdasngueO4lThl+ NMc2i8dulXZpUS3ziKI4 VQ92YA68lUJmy0Y8cXK4 Q7FxOSSyzczmahwu xZU6PCGmRIMzbA27Id1a tMslYh7iYGZxPVI4XTAu rIRiK5UvjE6rPoYlNIFg VTLeI3XyiLZwOIrt I875DCfeTdS7RGHzqeBj S4CfBJVnkJnxNyL4p9Y8 Ly6KVS30VY95JW28vENj l0Y4gOV3U7HjGEHb wvjtqdhkgUA8UUDpUJNd xT50Sy3faEtvLg3gESPi IFA8CVYbpPYxC9YrqR5f RlXyTKTjXATwJ8Jf fCNpWRcuC208OPpoXzU8 ZSYvuiLcA6XeQDBckMzi PxL9c0N7Vf5MHk61TH91 ID89jKPfy1F3pDN8 E4LvMWJubjsuhuxxmRJ8 UKEdMSUwvO55Mb7rpUum Ta6wJNJdIOM7DAGnuOAy S9OnvQ8tDhAsDLWj XVSlD9YmmYUyHGdeT194 CHogXzW8UQBwoiUhJ8Yr UXNqwMxzWyH4z1M7Zn4Y NJepcpa1U6XqQsaw dHI+GE69WONbQX43pXMg yAIjr7akmWw8ZcGwCLLx NYT9sUxnNWoot6MqWTPy U13grYGpr5J5POBi bGx (more content not included)... [facility] Coding Summary HTMLBase 64 DodstoscIQf3rYw+PGhl YWQ+FF5XUAZiD96ojXHj jG0tO3YLAQpGEwalBDXR RBxASyAalcFvMX1tyGIz ZXJu IC8+RX9wQDDbZfhkzAIi l2Z3nJJ2Y05uyc8tSFyf wSG3YWQpMwChprnyo9ki aPq7XVcxAxeiMdNn PQSqdQ79JRF2yU73Xk53 nBPzqIJjw0dkfXb1UmVn KNRcMAL4iTuvWOjch8Ia UMUlK81uaOVwg0G9 IGNvbGxhcHNlOyBlbXB0 yE6tJIgkaogqc6eilffg Aya2ye88vHWde5D3aCB1 I9IyapB3PMLieMGn QddblNQXwS3qipzsi6rf ojmyItDbGLSaKYs1TLd7 TGGfdXooWfCtPF62GZG9 PWMpaeTfP9SlVIGd vZxjJjU7s9V2Su8DG8IH DzbpN3NDOKWSTJioyYY+ SB06hg57C3MyWhezFfy7 SCUbLBK5vCH5rV6y URKjRJmpw4Q7xWZ0W4Rb adKvfn8yl3frTHWnYVcn U60zaMAjg9A2YERbeWB2 UWFvcPgaAyLzvV95 Oyc+RRNcrIvah1RtCzpj q0rhs2kqcHl2HmjvVBYo mxRtoLlhIKF6y5FcIe1k FJRfhGK9bWN1pD5p MdWbNcM2RZkeS559MePh xCWzNstvE55nS9LhuSS+ CIVdUqe2TVQryPifDJ7h D8KdVJHsalstwLEl qDmaWG9uUUGmwocwUNHs lQ9tYMEcA8f7FmAgCsC0 LZjqI2LhSPOvgkezJq86 xD9zBtSzHdV6VXey C9IzrdA1ZPAkxMDzHVlx UIB1C46to0F6PPAxOVLe NOW6oNE7yI0zqKlxjrie bGVmdDsgdmVydGlj VRyoXGetU911OVQsqCqp PkNvZGluZyBEYXRlOiAg MDQvMTMvMjAyNDwvdGQ+ NMPjVDJ0pYqqSABq sZOqFRpzHb3xaIsuxDsh JC6lRPIiedalVJNjeY8m ZUAecLFgeRgnXV9kBKZs vsigk603NyNbVMO9 FPPvzFIbA4VjfO9oZeLp EBUkBXTeR4VgcIKzBTfd F604GNekXcR2RJIuyiUz E2XiCAUruDylSjJ8 y7R7Ln2Pr7PfiswhD5Lu wGZvTfPwPrejZIj2B7Kj PjwvdHI+FV87IQCiVK67 SZt7WLS2eZweVJbq ASSnF4BphU0tIwFoGJXf ZGRkOyc+PHRhYmxlIHdp ZHRoPScxMDAlJyBzdHls CT2mKd6rPXHiEQBb pOzpvSKnZhZgu8kaYREj ESmpCK7ekHexP4ErnMK9 WYDgr6f0Jn09A02mR4Xt dXA+YFLzfSO4wWW1 iK0xKfZoWhE4OPwaB130 TmVggVZpOjiei3xqi1zt zTz0OxR1AKDhosKkgZog KUV6y2DgLg82U32z IHdpZHRoPSIxNSUiIHZh xLyzsu1ueL2sRm2+PGNv rYP8qRX3wZ4zPaXhSoU6 JKscZ545AfLtzUIs Bumgw6paw2sjvWk4RtDu PTRgosLplVslMIW7f2Wx Zl18X2BgwIgai3ZaGhj3 jf66qFWni2R2fCK1 A3TzJLHujzxkjPHnyHfy TG8rWWYtroktMMSabK6a GSHmU3s9TuPiNkB3MSwu V6WuczO9UPEnsSFj GMUntOHGnX0taprnp7ok xwhuHhRsVCNtIVl5EBs0 LHCxrVsyApLbHVF4AqN9 FXY0rZWnwG0uzLxa rsaaeW3bBpu+ZRI8eAPe jYVOEE5bOzqefMJ+PHRk PUL2fYtkKNfiEGNbpN2u WZMjH2v6JiQgZlC7 WLsnJ0EiccN7BRPinPIx DGRiwWYCcA1ibcasl2qw mivaGaOsUORzONv1JCz1 LWFsaWduOiBsZWZ0 NwR4FLA3gYTioT5uuTmn dyutmG3gAor+QmlydGgg GXX3PSm3R2NaLko4FKYx iAciCO4ojSWlDEzo Wm6amMpnuWrtLU4oPAOa mqajg275OdQto7cgKAXq tYRzDPkuXMN6M14kh8X3 ZPAmMKHxDCP6kIO6 rG8wdLjzoblkzUQkbNth bnQgsKwcQOuoHMkwW547 JWIutCicChRhHOd2B7Mk Hrm4XBFapMxoAE6p pIUcGWfjJg3voLgatVrp UB2jKQFyabnqu600NhOk b3mbVWXzxIQcAPwjSPB8 N97ix4R8VMIsTJFh QYY0sAO6oH2srMmbhcxq bGVmdDsgdmVydGljYWwt VMumP805WRTgfAsvFaRq aKz2I2OqOue1WFKc rTezOY1zsXRmBMreNr9u oMwkiTwdMT0hSZOuxbuk c399QkMil1xlFTVflBXb GHwzFUK1B97hx1W9 IQVyTWJvGBP1pIM5bQ2v bGlnbjogbGVmdDsgdmVy rWnnFWusDYqsM213ACKy cDsnPlBhdGllbnQg UAqsHSj2V5KwZqlqoLA+ GG98IVFzEI26lNVyqAEa j5mwhXr1RzIuHSDaSUV4 cDphIYziu9AhWXKo B92wlIFdq0M4VPOulEea cCGtPzGymTM6zB7hEKzg uprio7omssmkUgths5id vy31pC85Z96gLSpq ZHRoPSIzMCUiIHZhbGln ai7jsX8aRq9+PGNvbCB3 vKC1kT1oRLHvXdC8CVdj P209TtGarDAyGgst i4aav2ayzZe8IhE1UHTo qjEycRruERP9b8YiGm50 J19bHHrhPOHrNOPhJKPh XBRpuHvicu0fsE3k Ii8+DWMseDR5qZB6lE6m FcWrWeL2GAmdF668MpJo eENsXlspC37bK8OvyNK+ CDSiVqe4DBCawYqx QE5mpAUoBWluJu3yQRH1 CmXjVlBiHPukI9DvAFBv lhjyldpqsBY7MLGnPOGu xJ03Yi0czNmaAYEi jOOEeP2jdeumx8gnctkc CjDhUBUzMTo1MTb8LJKd aUtbPkHkDUX2YyZ6QYF5 rFCqzF2ywXypvkxm tD8rT4SlRXObortqRc38 tX9wObNcNtE8OLemXcs+ G9CNCfgmCP8KB1uRLOoe SzwvdGQ+PHRkIHN0 aZnoDTydWQWhxY7pJNBn X8o3WwXtQkQ6EDvgZ5Ug LVLqhpkaZt48oT5hSePn PtL3ZDaeD9LhkuX2 KBAoiKCzXZulCEG3C78s z3Z9RZWvFEZaMCS2wGV5 aA6pkMmadyzdcNTtfKuz dmVydGljYWwtYWxp O577TOFfeBfiJcTmLvZ1 BsL1DvX8N9SgJzt4ADZn iHhhYT1owEMeHOfoKa7h zTnztItnGK8jYLLn hfzzIXBkwD2bZJKtcGJx wQthCP7sUQCsgljls607 CjOiHTA8WWVusUCsR1Mz eU4mDzBsADCwTGPw H2GhdUMaTAomR981OAtd AtG9GAQaixFsI2WsUWKt eWykLyY2f7N6Fq94FFEB ZWFyczwvdGQ+PHRk NTW5pZqhXNfhHRPqvH6n USNgF9k2BrKcDdS8IBkz O2IjDBEwzekxYi64cJ5z YrDdXcZ5JWuuE2Kp lwB8NTOowZYhZDzjZKB4 A06ej9H0FXZlQSVbZIK8 yDV8kA3meKwjeqdeeOPk dDsgdmVydGljYWwt RWxvR156GFDndJetMx2M MXA4L9LkXun1MHNbjPvd PT5wnYQwIYghRl0dkMew oYmvYA7mCZFooxdj AMFrdN5nXPTbqGTdnYge GM7lAXDzxnpmx927SrMl OXY0OMGbySGmC8ZpvK5b KsCjUXMpFUZdT6Fr vOXkPVhpQ693ZOidEvH1 CSZfjgThS5JzCUWctRtj NnN4p7T5Mu5DOJyqwQJ+ FI62ju22K3HbNubx Vbi3EPVmCTK2hII7zN5t TWAfBDlkc5T3tKF9E0El ooEtgs2fk0wkQTYdVVmq I08rdIVys0S8FNGp lFS1GIXvqIseMpWilO61 Oyc+LOLiaXjxu4ZjTmwz e8zku3naoTs9SyPcLZLv tvAfcZzzVKP5v4Wh Aq03J27vVIqmJBAlOZId NOToJZVfbOkscx1gmC9v Ii8+EKFmcJN9wSD4wH0g FzOzCdD9SCznJ448 FaVjpRPjBshkj8pyk5ww tRr9KaLzPWKsqbVdvShd TSU2y6MnDr67S1YzpLoi u0LdCxa7gs46xSWt k1G3vMN9E3GkWYYlmvek jVHrwIopDL5uZKDimmsc IEJsfV6oWHPeV9c5ZqHk AhD3YGpxO7EuyvJ4 ULDxwBGbRMMdwYZQvI0s qmfyu7sfdqzmVvFvOUXc OMv1KZo9XRXumMtiNjHq WHS3HlF1PTK1iUVr nY2oaAdmpiakdL4mWkb+ ICr5e5gbuIPeHK6maQK2 LS72WF52iJQke8G1yIO1 O8UaGKXracuhrrjp qOP3ICLeUKFiyH34Mc2d oUhpEf0nQDFfYGC4ZKZp zXBoK6BbiI0pGfZvECZa ADWlT0AqbSXpUZib M378LIavMcF5SVHhpfDj W1NiAHHoiOmqKfP7w4I9 Fn4YIR04VR12VX51gZMp h3O8sGT9Z1UnRVJs ooayuanmuTL3SHWzDLKq uX30Je4sjYvjWn2tVNGp AZM9RKGekQEeI7BabH0b IvKrWCPtNRPvE4Kh qFPpIRuoM071ONrhLxO5 RCYpimLsA0WnZDEtgGgm MqE1n5K4Oc9RFt72BO84 VG98xBVzc2O0bFF8 M1LrVSPwjiuprqchnYU2 QXExHMLdtA05Va8rfWpv Gv0cXZAoXDY7YJIjhMYf V4OchF3jWxIlMYDj PXEpN0FqmWQaKZjhW547 WIjhIpO1GZOqacXfH7La YUUqiEbqKnP6h2M0Tr1S KTyihms7D1TuJmsb dHI+TK42QJYuAG94vCPv kPIed0mtqOv0OoSjLXZr LYC9wVxkTIgcs4YqDADi M83ldGVhj3H4IKNe bGx (more content not included)... [facility] Coding Summaryon 08-15-2023 Coding Summary HTMLBase 64 NrgiratrFAx1iZg+PGhl YWQ+ZV2CQKZoH98mhGTh sF9lT6UZWUfKNlweEIOY USlJIvXfpqNfMH6htOAw ZXJu IC8+TR7lKUElWpcooYKs d9L9cDY8T95jut5yZHxp uBC0YRMoSsBfitzpr8hx sRo4JWzoKxbtMwOk YGIagO62GGG6dN32Zz17 kBCdxQUjb9pmoPj6VaHz PAZhMTA1uBzoJOgec8Mp TRQnA47xzLCte5F8 IGNvbGxhcHNlOyBlbXB0 aW1eTCuvkmmwu7livzdx Puq9af04rUMmj9U3sVR1 G3ApflQ2MTDxqCFn AxgflDLOzO6plimem9ed ahnoTfHgJYBsYSs7KPu9 CEUbhRolGaQnOZ91LVI9 HVQaotYgD8BrYCMi lVfuVyI8c4Y8Se8EG5AR XvpuX6IQQLNEUXhsaHO+ ZE14mj67M1WcNiokHup1 AHDfDDI4rTZ1cK8d FOBaIBrbx3D8xWH3R8Qz cjEqih2mn5oaHIKbSNdm C44qdNQgc1W0VOGvdDP0 AFForAauDzTvzN98 Oyc+TPZucIlnd2ChLgej r9oua2mzqCu0RuebDVQz spByyWpgVEX5y5HjPa2u MEHvqVG5hPD7iJ7p KjBeTfS0IDqfD825PxZi sWGgZfhxS37bL8UbnHY+ MYKzPsa2KXDizCuxUP5n N5DxZVIxlsdqlYKp hLplDZ4vOKMotcriBORk dJ9iSCJpO0z8GjGuJjE6 HKsjP8XuZTMtbegeJb62 rC3uKxLqWuI0PMqk R9IkhsU6EKJpmOLxDAhs HQH2N95ni9C7UAHiUPSa ZYV7sYV2eY5ocGsjvcjb bGVmdDsgdmVydGlj RXzmWOafD183CEQdaYfp PkNvZGluZyBEYXRlOiAg MDQvMTEvMjAyNDwvdGQ+ OXDhXYZ6bUzxXGJu nBNrOGdnXq7msIsbkKva ID2dYXRykdebAJEfjI8p LOIujJLdwEokXJ8iZITt dgaih842SxKhDBR4 EZRrxEQhO1OvmW7iFgJc DAYpMGYaV3HobYBiDHek X646HEywGlR4CMWadeVk Y9QyPUQvjSvlJjX7 b3T3Ve5Zj7QsyibkQ7Ab eMVnSdOaYshkOXp2N1Dr PjwvdHI+WZ76EULyCI44 KNt4KUY1iJqgIJap JHHaJ6KwxC5dBjOiCEOc ZGRkOyc+PHRhYmxlIHdp ZHRoPScxMDAlJyBzdHls TY9vRp4kWAMnBJKt iNgtaAXfBcHxi3msWFUu ERnzWX3jiBqlX9IepBO2 CZGid9w9Sk61J12gJ9Rd dXA+CPUxxTC7sOX4 oJ8lCaUzIjY9ODoqX897 LzDqvGAfTzntp8tbr3kq fZi9AdK9UWRqacOjrPay LOT6n7VpLo60C76y IHdpZHRoPSIxNSUiIHZh jVtsiz7yfS4fCv7+PGNv rBC6hLA7wW4tYdAuDrJ9 ZVsdV939WfUpfASx Frsvz8nib8fbtWq8YcDl CYGjonMtsKyvHHW5l7Lk Lu66B7UqfUfjh1WkNym4 vj90qGIvc9C4aKB6 G8AaMWWnjigctPThcHow MO2sFPXmiblsLTEodG8f TEOnI9o8KgMzUeZ5RXnb O1RyrfS5NNBpyLJb YDSuxPEKcQ5vviugg7hn glojSmNvJYJmTNe1FZw9 INGiyUncNrCvOWR0UpW0 SBX4eMLxxP1jaYsd czvkvW7bQgs+YOD0nVVd pYZWWT6yCplmxWM+PHRk MMS2tUxgDSseYRRsiP9a QMGtC9o1SxPqRvW6 XWruX3AdiyR6ORUawFCs AACqzTKMtS4xhkqal8na fbeyYvJnRWDrLUy1YJp5 LWFsaWduOiBsZWZ0 ZuX8YTZ2iCStjJ6hwXef bpqaeM7tNrf+QmlydGgg LHL1ZIy9Y7BoMcx5MINx mKapER2ldRYsMZxq Jl7giTipzCwlFZ0aWOFl ndfsh572PyLpm8xfXLUb rYTmKPbrBHR4B78xj4W4 HUTrLIVhYYD7nJS9 fR5qgZbbngaakSMqiAgg urGctOoyXVolGFnvB151 BBFpfUliLgBqYHq8G9Np Cus1AOBmfVcsWZ6q zMBhLJgkTv0sjZagkQuj HB6nLEOsfkqrv297ZqPw k7jfREKxuEFrJXajSJP5 V83mo1N7BRXuSXWs ISQ1lCX3yZ7ooNkkvmej bGVmdDsgdmVydGljYWwt RZrtD779YHMjzNtlOzZx gMl6X5AgHvj0GQIp tRueJK2tvSXrWUrmUg7z iNfweBpeWA4pYOAhkini u697BiWin3hsJOYsxMNi EAncJJM0B08jn7N5 CACzYNRaSZR8sUX5iQ7p bGlnbjogbGVmdDsgdmVy tZjxYZfmNXhmD446XDAu cDsnPlBhdGllbnQg FGwrUNc6U1SgYnxhdVJ+ RP07ZHNcYM47cECnmHBi v8vptEi7GoTtGJAdDVI6 zNbxYXjnt8MbAKTr G36ptOZtd2L6NLMnaOzl xVDbSlZkiEJ3oA7kCSzo bcvru6hgwodqHnfly3pg pl97vM25K76nIGst ZHRoPSIzMCUiIHZhbGln xa9seE1hKz0+PGNvbCB3 fNW3fR4zRUWnCtO5KDti F618XcEjiCDiJspo s7qrw2qluRe2SgR8UFYw osSchNqzAQK6f8YqAt75 V45kCTujUGXsGYWcYOFz ESDcyDjevy5pdP9r Ii8+WTZduWG8wPD3eQ1g TeQyJfA4HSseQ553CsXl eFQmHtrqH68jN3MogZX+ GHDzEyn5NIZhdDxs EY0ebLUbBXijTp9xRGX2 QcQcAjFmYWalE7BxKDPj jhqcuinhvQB2KAYdMXDp kO64Yj2ekJkfBYRb qHPImS0zghkcw5gfkiur KiTbFPBvIBr9JRf3VQHd pLhyGcBoAEQ2WuP3RKZ9 mVBcmE2qrUoriqbp wS3fW8EqJDTunjeyRq11 gZ7kKjLwUnI2BWdgSup+ W7CKPaejAL5ZX4jRMFgt SzwvdGQ+PHRkIHN0 sXskIHtcQEBrxQ2fJYMf Y1b4UsQiJxT8DPzgE7Hz YRYyveeiWe84qG0jAyPn BwX7PRbgK4JvhiA1 IMBukLQvBNpjAJC9I60o n7D2THTpYSUoLNI5yNY5 jY0kcXjmmfmdwOVpmZqu dmVydGljYWwtYWxp P186EARnrCbrJwHvNgG4 RgD1TvU2Q8JnHxx0CGVs jMtnVX6iwBHwXKanWy3u gQzyrMjjQE9uKZIy syrjOIVkmB9cGIPuwBMo rWsfWV0aUFLqemzum606 VsFdOMN5HSWrsEIeW9Kn bF6gEmRiPHZyOEZf Y4TtbNNgHSejG023HPzy WhB3CWYmbiGkY3CaIUCj lCvjOfS9d0I0Lt79XIHX ZWFyczwvdGQ+PHRk TOS6uWiwUPndJGCndS8f DAIgK4y3NeKbPkI3IRya X9UuWSTchtyhCz61nP9y SpUkPzY7QGhiD6Mn cpZ5NJHvcHIkAOzsHXI1 T01jv9B4WHNiLBJgIIE8 xVW9wV8gxIyxxnygsAEm dDsgdmVydGljYWwt BQevL860BFOpaWmgCp9G ZUC1V5CdFww5UXYdgMns CT9afEJvEZcfIv9vaVai aDwrPL2kRVJqtemw CLShhG6yMBEzlIKaaGnv SO2wOQCyaiymc921CvYp SIV0CYHvdKJbR5YpeV2w SjYkHVUvUGMaH7Vr iIJhLMdoW200AKkrHhZ5 FXRakaZwY4ZzBEThbBnf LhA2e6F4Mi9XJNolgKW+ DA86sy99T5OsXqpd Yjm7TQMrHFA9gQV5lZ3n FXOwVFdlj5D5aXG7X8Df liXysw3lg7tlHRXeSPbp C61vkQDqb2V1DFBo xEG2IFKleJorMmJcdY15 Oyc+SNCjoXhqo7LwYrad k3cnf2vspWi9VtTsAYSz ftYorVffLZJ1z5Tf Nr80J58sFVjeGWFcQRFe YDArSBCqaAjpqd2ukF0l Ii8+JBGhgFG0zDN8hJ5t IkVrTlS8UYpwH721 KgUunAKgSskaz4jhk5zm xQt6GfTvAJEpkvOgnEtd QBJ9b4VrUz10H6GyuMvq d6RlHvj3in49gCZk m2V5rAV4L9EjPISzxoxo zIRozOvrON5eVPUahemb KBDzoJ0kFCIzF6d4KxXg KgN3EIrkW6JkkyP8 MPHzxDObLKFptYBGyZ0k npylg3vzmlobCfSyKBEa TWv2OSd5PZSiaJypZzSf QYR4TdY0PWF1pHSf lL5nbWifpkmezX4hKfs+ JQy9s8zdkFSxZV6rnGF4 IC51JU19xPGwo3Z1bEI7 C7VcJIIkpsxqdpkl hUM8VAIyORGhqE71Rh3g mTohFo6nGXFbEVE1UUDg dPNgW5YpeT1wMgOkPFUc MWDoI0ThmDLwOSzn W892UYhzWvO7GHQnehKl K3QgQBTxtXdpLzA2r1K0 Iz6JJB82FE21EJ74fHWh a4Q6eBP9J3XzAOBq ttmkiwixoGI4IDVbTKFz xY40Ut7egSuaGg4cOXGs LNS7RSSlpLSgV3NqtX6f HmCpAAQfUXLuR3Ib uSRtLPldQ528XLxmEyG1 TPEsbtEmW5RcBBXuoFjq KgM9g0K9Ws2IVf99ZD67 BP00pMDiq7Z2wOZ4 X5AxDGZakehikjnuyIX2 NYRwBIHcxA53Qm5oqPhg Sa1wKVUfSQI9OEBtxLLa Z9MdpW5dImDpAOEi LEKgO5IgrBSjPAglM551 THrxFzU8BXSnxwWyX6Oy JQVivUrvTcX4a4W6Hm1B JOrspvu5N9CeEymh dHI+VD81LENuOT13sXRx eGYcb4exgMf9ShVhRRAt YSO9xCyzPZvch8NgPKZg D77qhRKhg2D2NFMt bGx (more content not included)... [facility] Coding Summary HTMLBase 64 TifsgfeuPQu1dQt+PGhl YWQ+WW7EGQOfH99cfIWv yL8wP1AUVBcZOkrcCMCB KPrMPbHfezKjKA8wlVFs ZXJu IC8+JB3qILJqUimjkTZb p4M8bVJ2R26ias4sWEnj dFR5PAMuDlWryeamw9iq wMa4FDrpZrgrAjHr JMXhiA10RSH7eR40Wf16 dQZglCQnf1zbkDj7VsZx NQDsQHE4bUrvBNujn1Qw MCOfG12fdXVog3X3 IGNvbGxhcHNlOyBlbXB0 rD0dECsqnrinw5xmtxbq Zjx7ok51uYAro5U3nET1 N4XpifE3XFMniHWl NxjbvWPOkZ7unbdqn1bw jkgmZgHzGYMvSLs3WIq7 ZWKsbOijPeUdFA60IBQ3 ZSVjvySpC0NwZUVk vInmSsQ4n9S6Jr2HD6NT UqyeU7RTXLJRNFskbZU+ PY60iu47W7SbWzxlOet6 DLGkSCF7iGN9lU0e LSFxVQnwh3M3vMU4T4Rd akExmy7ts1llXYFqMBcr H03uzLDhm4O9YYJvuBQ6 DVYioYknOpBidQ91 Oyc+FLRmnWtrq1AtGhnv s7ygq8uhyGw9GiqmATKz hhFftYooATX1q2EaLm5s WMOdlDA1cXJ2bI8e CkAvXyK4QOvnO217VqUp uSRuNfzcN74hS6BbbGO+ GGAsFkh4PUGwrZqvWK7e V2EmNBGkhhilnTYw gUdaJF2nSTUphsdmHGCk fV2vDWApH0d0NdHoMrJ6 DXzpW2AbEVLftkyuDo03 xP2rEvXpUkH9ERfi B3KzliJ4JYZrzEKzNVbx QEJ7K39wv3M0CHGtVOSm OKF3fGI2mT8tyYdvfusv bGVmdDsgdmVydGlj XPtaUTxlK362PMWruTqg PkNvZGluZyBEYXRlOiAg MDQvMTEvMjAyNDwvdGQ+ BGChHWD4hCpsQGJl iEQxVLqkNw9alPsgfGqf XE7hAOCtascoANSykF9g AKTwvXYlaHhiEB6aPRIk cilsv703HqBhWGJ6 CDCtpPKvR4YfxU1zLwYp BIQxKVYdC2PcbXBoBPta K614KVgoJhB3LKIwhfJr L0MkVSVhlKafVgL6 m2I6Bj3Id3XzvbjgR6Cb iENxOfMwOomhHFm7U2Go PjwvdHI+VL86WHAsDT13 QVm6JWN2hKscZNex YSHxO6QjqP1xNiZzMKPb ZGRkOyc+PHRhYmxlIHdp ZHRoPScxMDAlJyBzdHls KG7jWm6qVELjMMDa vAvumXMkLnRij6zhSIGr CJvjHC6tuDyqR7PrwHH8 VEMoj2q3Ig37S34kM6Mi dXA+OCOngZN7iQE4 nW6oNcFwDoC4LSxzU051 PzNrrQDzYgppu4sgz8gc fEg4QmR8MOUerzFnxEtc BRT0u4QnWz62E39v IHdpZHRoPSIxNSUiIHZh tXpnhu4kuR1mUe5+PGNv zUB3qNL4zK8tZeRiDfT9 SCqqS568YbTvyTYw Mokla2rvh7jtfYg3CoPu XPRrseNfsYcvPMG7y2Rj Uo38A4TgmArsv7VwReo3 gg56hBGld9D3eVN7 O9VbIYEaqndeoKFprGlr LM0iJIKxvquhPAKzxR9v NYRfA4q4BoEsJsR2LAnf X7IzkdQ0UDZduGRy EXCelLGXzT6soqdhd1ig gljsWiUhOWOvGZx3MGw9 NPRnjQmnOhHoDAU2GwJ2 ENY9cZKuqG9gbSyj bdbglI0jKof+JJH0vJHb wGESWF0dAcbsgEG+PHRk AQO0tBjgCIqbHPHlnI1p EPTuC5n0AvTxFqH5 OBtpS5KanpQ6MMUftEYe BBTiaMPWgC4lwnctq0cc wjodQyKnFGUkDRw0QCb9 LWFsaWduOiBsZWZ0 OcC8DOS6yNFkiV6qeCtj aznzbK2pNvp+QmlydGgg WGE7JUe2B6MvSky3XKAo tGwoCI6xsQYgIXcj Xy3ubRjcjNozMT1iNHAi guihj114AdZkr5ubWTHg hLOsLQltQVE9S89ki6R3 XZSoDZQsNZG7aEL9 xP8vsVkujgqrtKBfsTus zoNhoLimKFqcUVpcB381 RHIqlTsiMgYiEKu1G4Th Lrb8GEPapNajSN3f oWFsIFbpGi2ruAiedIte FK9sRCBszdijy793XnSd p7kuJLPpgCMbBEvqAJP3 D34gk2M7RQXfIJZp JWN2pEN6fV6seXdztrzi bGVmdDsgdmVydGljYWwt QVnjQ526TKMueCfrJhNi nLg8Y4SzPcf5NPHt dSgbQP2ruQPsMIifZe9j uJnwpSilZD9wPLLwjmdn m104DqSdd3foXORnoYBg ISrzATH0T36rp7A2 JPVpOMXfWHH1iHS0zU5v bGlnbjogbGVmdDsgdmVy pTthYIwgAQbkE368ISXk cDsnPlBhdGllbnQg ERdjVFu1P2FvBvmtlPT+ MH74ZBNeLU21fOSntOTg e6tdsHa4FtGnKAKuRCL1 cZldYGxqx4VyGHOc U46yyIJsq8C5GSIopXug yEDfGgUftWE1nA5kNSwc daczm6cusaqiEkojl4uo om73mV96N80bGEdi ZHRoPSIzMCUiIHZhbGln ve5ulE0kSh7+PGNvbCB3 xGM7tI0fQTTaGoW0SFrh W612NwMzzRDuOmpb i5quq9ybkEn2SnD6VZDy ziNezOolPMO9w3YfYd15 L39iZSsiDGIzVJAdZATg YEUgmRyeij5iuH8e Ii8+COCaxAY9nSH9eZ0r PiAdYhB9LPeaY699PqRl bFPpXpmrC99tV5SwoIX+ WWQvEdj4JVJxtFax PP9shUZeCZkkFe0tVEV2 TbVdLwOzDJgrU4FjIJAm fwobyrwfsEV2QPPtEYPi wJ68Rh2wlHirNJZi qCGFbT5cpwlbx3tstoit CeJqNNYeFDs7EUe2OZOe rGskNxHeWQB1PlB7HHA7 qIEhjC9ccWcefool oU7iV1WuBNIyuspyBq31 sF5tJeEuMmL1DVvtCex+ D3SFDgewID9ZX1fLMNia SzwvdGQ+PHRkIHN0 gNsnNQkqEEQwnZ0aYERv E1y0EvGnLrX6VNynU5Tp OFEymskjBa17rU3gGrVd BtT6RFlfB7NwagG8 FTHmcLEjINmcKIZ9F25o d3N6AKLcMQXkWHI4wXD1 eG2zkSpvluuylWNnfJgj dmVydGljYWwtYWxp F260XGRrdZnlWmJoKrQ7 PeC1DbD0M1PzBov6POJs dFbeMR9ojOVoTSlqNb5o dQcfpDsjVA1nXWWi akdbJCAziR3wMNLzyHBo wMsiOS5sYVPpeofme639 QzCmQCL8MMBejALtH6Vp iX5oCgDyXNHmHXKd S0NhyCBtUFxcK423GPxo IpD6RJQeurJmP2UjEUOa fFlyZyS5r4X8Sj29OWDH ZWFyczwvdGQ+PHRk WBE0lOqpDSbiARPbkL9o FCQwU0d8HfVrUjB1FKnw H4LqODVrpnknOi36sC0y CwKsHrH7AJuyA0Tz qbC1GMQjqHWgZFlmNFB8 L08bg3H9QINxNIJvDAL8 ySJ9vN4tmHqceocikNIs dDsgdmVydGljYWwt VApvF106RVUlvEsaPf0O IGK8H2HbJqm1JMXqrVwq TU3sqWTdSNqxSo2vqUdn kWlqWU7dTKQfmnpc AGSomA0xWPHknGZddFkl GH7fXJTyyedvs188GaVo JWE6GOWwlNUoF5PuwF8m JoEfIAYuCTInY8Cu jHLxITqfL681SWgsDsP4 YIPfeqYxU9DaYQHfhWpk HiV6y2J4Ce3OKHvsiKB+ RI25fw17W0KcGvbb Viv3KPXcAIL7jSI2iJ3d YCWyRHrqo5U2aLT0V8Ko ucBxbz9sv7wyTGKcVYoh E14yzZHsg8U5BXQo uLE1TXAhcFdsSuSfsB27 Oyc+JCKwrXuxz8LyWftb k6epz6gakKw3JxPqTVYi xzBumOxgIUW5x2Lc Fc35S24gRFisLULsXRZb PIWvBPAqvZsnnn4cyG3s Ii8+XPRyaIJ0aNH6rE2n VrWsKqV8GKadV292 DjCzaIOiZtusa3gat9zo wTi0AuMyWDJinnEdnRql DZD7w0FpCt90X9GapLbj n3QuCxo8xt65mGHw n4E5bOE2I3MhTCJgziuh lIVmkEoyMH3rDQEidkiv SKTrcJ5mCXVmA1c5XpEo WlH7HGcqB4XpmzY3 OCAbsVQwBJQcwBNXdY0b tcibo2cfxbcbWkEfAZRp BEa3VAs2PSIjoPyuXaFu VAR4FhD0VQG4uYYg vC4paFewcagunU1fRur+ ROq2b1jgaVVrYQ8trMX4 LF74DE79nCLdm9V5hUP4 Z0EbFAIpenrhymwf tGB3HSRmJDHdgO50Dc8w qKnwIs4yOZDeRTX7VABv sAPmX6UttT9vXiUuGVXq NSFcZ9NupBDfVNuu J427EBgkXyZ3VMXvgvXb R3CdJURbcQjkRbQ6y0B2 Gb1DZE08HQ99PX67oCCn i9N6pYX3I2RvEBNh gamocmgjoZP7FSGhMDPe aJ36Gj1fjWsaUm3sZCJq BLD2VMCsmOKnK8RlvP8b BoQmUDXiOUXxI1Dd vAAcWKesC066VVntUyA8 DDRfxbLuC5WlRCWyoWkp LnA2c3Y3Gi2MYg92VT90 MO77wCQoz5V6yOR4 D5WvZHLwqqtlyyvutDA2 IQUaFGZmvH57Fr0fkEdq Vz1pIBEaOAG2DZPqxYUb X2TvjA0jJvMqZJRg JXTzO5LabFBhELbwL109 GYrjHaS3AZPdelTzF0Mt MMFmvDzdQiS1l3U1Me9J NSbodtd5A9ImDnou dHI+WW66JAMwTI28bIZb pQVtq7bklUt8OjDuLWIn BYC1sAljVRgbo7PfZRDu U27qkPTso6W0XGUc bGx (more content not included)... [facility] Wound Care Noteon 08-12-2023 Wound Care Note [id number]# 1.00OTGTIFF [facility] Wound Care Noteon 08-05-2023 Wound Care Note [id number]#1. 00OTGTIFF [facility] Coding Summaryon 07-30-2023 Coding Summary HTMLBase 64 CycjedayTKt6lDy+PGhl YWQ+TQ7SQSWbS77vmARk vV6lI3GCQXjJBqefMOZQ CCbAUfHjhvNxYO6fqWCq ZXJu IC8+PP5hFTZpTyegxCJw y3N9fCT6M56qmg8kREph hJX6TRMmEwBikuxua6me rMb3IGzuJfirXmOl OBNroB30OUY0tJ02Pa38 uPHudXVvj3lhjJc5MfKj ICShVFY8lPdfGItrg7Bh HWLbW32ikXCxn3F1 IGNvbGxhcHNlOyBlbXB0 gT2oIKpoppkyo6qiivud Vwu3hf75pFLor0M4kSZ9 L7SrfeO2AVVjnQUa PisehWQLxM4cgcpvk4lb bfioQkBjFEEeBAe8NBs1 ILKlpLqvLjHaXO21QJX5 VDVjlxZrL8PvWALl sFdwTdP9i2G8Av6HO2WJ MvyfA5GFEDHNICvyoPA+ CB32fq73X4TzButdAys6 BOOwWXZ7xIJ7uG9z QBNePEmrt3N5hCZ0X5Ru lpVxpj7mu3byUCJbQUsy R72pjEDsj7L4PQXwkHL5 OGAmjNblQmFlqK44 Oyc+DIClzQtla7FpLijy h7puv4hrsFr8YkzcNADe rkPojTcaNAS7z5AdIz4c PYPgzDL5cNX6tS1n VqHhLyF2XUitW219BtYi sRDaPohwO51oU7GdqBT+ RLVuBya9ALRgmYuoJY7d U8LkWMXtzrhvtOMv gGolNR6nQOQcddbdDVZp vE1kDEZgA9p7GsUjQwI9 LQmhU7JoEMKdhmmeMo88 mT5yHtHnQfT7YJvt K2XxjaJ3YCTiyLVwPQzd NCA9I61it5C5SCDtJPAx LDV1aLZ0qH4zvRnzzomh bGVmdDsgdmVydGlj DSkjJBjtG989JCEtjBqf PkNvZGluZyBEYXRlOiAg MDMvMjYvMjAyNDwvdGQ+ NZRxSHR6zEvsAVNl lEUbYTkoFs3sxSszsFrc KN6pDFQtqhgiIDQbhO0w PINwvMYnvPcrSA1pIFOa hkupg681AuIiFUJ0 HBJznBNmT7EnsX0mHjTx EUTvGHCqI1OdiLEkPByg L149AAjeKzW9RQBnbkPm L4EyQOAgmMrhRsK9 d2P0Py3Vm5BtjywiY6Pq xBBoLxEzFddzBCi7L7Fk PjwvdHI+BK02MUItQJ19 LOf5UYA5vQmaSSwl PMSnJ4CdtO1yVzHqHADe ZGRkOyc+PHRhYmxlIHdp ZHRoPScxMDAlJyBzdHls GE3fKz5xYZIyLWDp xMkhjQLgOfUyx3xpSNPi EGwwPC2foSjoD6UdzZF5 QUFef5x6Az55K44jJ5Ct dXA+CQRttHF8zPK7 nA6rOmApLiJ3KKywS036 FyGniZKeVzaui1vgj9gt wPl5AkN8USKhxnOsoTib WDM7q0HyXp09R43t IHdpZHRoPSIxNSUiIHZh hNiquw9ydV7qCh4+PGNv zUI5jAW0xK6hWiHtVsW9 DMlgE276CuZvmMZl Msrrs4orv9lmzWn1DwPj PQIbnhElfOugNIL2b6Dy Wt38T8OqjEoyt2PvBen7 xq39lXVnx2C8wMT9 T5TtOTMqnvrbbPBsrQuv NF4eOSUqdszsVTHmwA6w FENuV2g8ElHsIzI3LIlt Y6WjpzE5ITMwlXZm YYBwfGTNwN7dvuyps8yb mmgvBfVaZIAcJSe3UMp7 VPGjtJhzKwKyEFF6SxV1 HED3uSEkxX7dgJjf tngizR7lZmw+XJX7nGVw qWCNXX6rZimifTC+PHRk TXS4rTufPTkxEVJxcE2e RFQgO4j5UiIiMuT4 ZQljD6EwvzF8FAElrJDk IUJnnJMDlB9jkoxpc8go lpoqIxRnELRsVBw5PZz7 LWFsaWduOiBsZWZ0 FvH4NWV9aIOikK1jbVcf vrlluF1cJwr+QmlydGgg ZBD3XGh6X9XwRsw1TJBk kSrrJU9fpZSrIBoe Pw8xjUyuvAtkOV7pTKCs rosvi629JrRxd3prUNQy dSRiVHvzQHH7P84bc2P9 XDTdLAFxHQN9qCV8 gL3fqJiwgljneIFwzLic kpGlzEuyPRbkKZyeP919 XNPeyIjyQrNwZCu2M3Hk Dwv7FWEsaPmoUD5c uHKwHWkxRt6jyEdbuKdu EM3hDGGkarupg936UtRq m7cbHCRmbTHsUNhbMRW6 K49zv2R1MJBwYUHs YJK6hZW4xB2pcWvwziux bGVmdDsgdmVydGljYWwt HPdfZ676UNVbyFzpRwEw aTo5D9ZgKuq4RBXu vEqrFC8gdFJwQExmAo5g uOszqQfxBW6mIETnkolg x362TyCmm9wqLTKvbWRv GEuxLQB0L76ko5A7 UOCoKGRfXEH4yTP3iT7x bGlnbjogbGVmdDsgdmVy zGlkASzeUQdrH895RYYi cDsnPlBhdGllbnQg QKchFPs2E3CbKhutgRO+ BH61KTAwVN13bNRcuSEv v6mitTj5FrIbJDTjKSV0 gSgsHQisn9PvEKVu T48owNJjs7A0QZGgjFza hUCeVvAjxQY0xU1zALqe sjeau2wwqpdgEzxic8of bi22lB78B39zUKvb ZHRoPSIzMCUiIHZhbGln vv5piK1dKi2+PGNvbCB3 qUG0qQ3wIWZcDcI9CZvx G426KiEllVEwBfba n4thz9kgnIn1FvG9NXVo zcQlwDleZOV9c9ZcSl56 K87pXVliLZJfLRLwIKJa DVJgtScxyd0caE8g Ii8+LLVvwKQ1kFE1bI6a VrZbZgP2YRpuV638ZpMf jNWiPyevA52dW1BxhFM+ YJCaCya7WXFssVve XC7rzBTaTPujQn3cRAJ8 ZhHkZxIzLKdkH7DgXPZs klmkgwcobLD8ZUAfKOLq cF32Ub9dsAxqXHDp hAIZjC6xkeidt3yrbcjg JiChMZHdBRq7EJo4BLWy wAmoRlIzTBU0PtM5KGL3 vBWrnT3hzGbndlfs eW6nW7SxEGNhqewiXj89 sS3gYbHrFfS6IJciQzu+ K1UDBlydRU0LG1gILEox SzwvdGQ+PHRkIHN0 uDhgBFguNAQaqM6fGTEa N8e2BsGoKeV7HBkvC2Mw JSAhjmmiGh68xK2sHtUz BuJ0JVcfW2MwzdN4 QGQlmUAsXBkiTYJ8V54v h4U1QTYnJTYjSJE0kJP4 fS0zwPdzdnxfhJBscFoj dmVydGljYWwtYWxp A779LEEfaUsvOyWcCvG3 HhE7LvF3Z6VqYdv2WDSm xWdfPI6zvACoHGijOf3f iLizhGrlET0kUWUa ddpyZMElnR5xJDMjcUJc jJfjBG5sAVOvowkby185 OjLbSQU7BJToiBJnR9Wa eZ8wYoIwYROtVSVn T9JlbBPxMPwwQ810ZMet XmK6DXPodyUqP3NmYNUp bLmcKnT0e4J5Vv13ZYOF ZWFyczwvdGQ+PHRk RWK6mRdkNSgqFDLomX5i WMCdU7z5JnVcKxS6EHon E2ZfEVMwyxpcQo32fJ9i YlZiMyV5OVceY6Cq iwJ8VWZvbKDtAHchBOA1 E11tk8H4JNDyXVAbGSZ8 fAV7tA1ldOozjqggrYZj dDsgdmVydGljYWwt ENmrO671QPWnyCqcQj5O CPY8R8CdXct0WVZgeWoe GG0cyDSqVWjaFt8tqPpx wEfgJG4kMRIvexel BGUzyS7uFZFjeEVatQxj CJ2jLTFvgjryx202IpEb DEF3OSXktKElB9WpeJ2j TyGzUEOcVHSeO6Au yLMgDYtaL999ZOquCxE0 EVKhpjVwX9ArZIEznFdl BgB8e3Y8Mm1XELokiPY+ DO83om44W1ZjXpis Xcu0ZNAoZWO5kAM6kJ1t WCAdTGahe8V1qGY7Z1Fy coGfwj3vl5exLJUtZOlu A91bsVFsm5W6XUUf dYX0GPSbeTxqWkCbqP14 Oyc+NEAgtYfvk0FaUebm b3obm5zfiOb1BfWmRLNi ekUonKbrXXM4a5Mn Px47J01tQMbyHGDbWYVl ZJMxUFYkaIqdzb8gtE7e Ii8+BIXryJU6eDN9nW2y YbOdNmJ7IGwlE818 CeCbtQDaXwhjk2drm2go dXg9TrIuLQGuwaUbeOcv UHU6b0NyDl52D7KdaCcp r4LpZmn7gh16lMXe o2J3rTT0O9KkLSGitbxz oPXnqRvwRR2iDXAptuex OULzaD2vXHZnJ8q2GiAx HjO2TKoeL8OocbS3 PJXkbYClJMNynRHEhU5n fsqxz6uulzxgTkUtQAYl IRr1LBv5ZWEetLlsVjYo TBY0MrE3WCO6lKCu mG3noRvgvxstoE1pAou+ NMb2m2vmvVHqAC0mgYG3 XB09ZZ77cADiv7T8mSS5 X3ZlCFLeacyucmtu nVB2RBEpGIOniI86Bj5a jWciMk8pCQDgZZH6MPGj sOFhV1DnxW1nFhUsVETq WCTfA9DmiJUxPCie R174OQfxUmB2CFLyidDn P0CqGLEdpStiRrR8i9G7 Br0VSF90JC85RN04kGLs u4S6hQY0H7UwDSJa rwjgbynulTB0NOVbWCSg dI48Nw7igIabAr0bXSXg CMQ4UACgaRViQ4EsnO1d EmYpEBAhOSKgM1Na uBQcWUtgF314KHljYiK3 LNBnjbKgC6LbQQBzyOgr RxD3t9O0Eo8TTf22VE57 WB57zWVzp4G4eLB8 Y5PyRABkgchuakqsbLG4 OVIwFXQqpC15Xm5uuQej Jx5lCOQgNTQ6BSFnwYQr H2LfkI1jIoZhRHNu PHLrR3OfzWZtULmoZ469 LFtbZzR3ICHptjVkY3Sn FXSbeHwxOpC4f3O3Tc6I FLjtlni9H0EpXeyt dHI+OH27PNSjHO55hPDr zMMwi5eozJa4ZpGsUPOu VEJ9vOqpLLcej0VlSJOy H40dqBJmc9I2UNZk bGx (more content not included)... [facility] Coding Summary HTMLBase 64 UrgzlcoeRYx0zDp+PGhl YWQ+NI8MGWHlQ77amRAe oW9vV8MEZApRHbrdYRHO CFqTMbOhdzNsGO7jkQSl ZXJu IC8+YE1iKBBxArzneBVc q1S7xSP4S55qze1vOCrg vST3CUQbYbKuqwzzf7en eYc7OHrvQhicUjFz GHNxhN92XRR7lR66Iy67 dWJnnPPgs7mhkNi5QdKa DWLfYZQ3tIssVDnub8Ph ZOFlH51liKLad8S6 IGNvbGxhcHNlOyBlbXB0 qL6uLClldpurk7nbkyyn Vvj8ck49vXNik8J8xAS3 M0OpowR4CUPriSJq BgbzmALXsN8picgbt7xg fniaNrVqDSHtJXg4FBl3 KFJltHopZfAsUW63XEK3 XSYteeYuL9NoMFHo hEujAnH9s7V9Zj4OF8ZZ SdgvZ1FITUWUQKzzvVE+ FL17di65Q6OaStawGul2 YWPbATG5wXZ9iR9f ZSDtDGfji2Z9xPE4P2Sn dyGeyw0ps0svFBSgJIyo H06aaCBen0S9RSBujPP3 ZHVysPofIlVwyA90 Oyc+ZBWdrWndb0BpJrpp y1gjw4xrnQg9EjaqNSNb ioLlkAodKQD0q4LjMm7c QGFmvRS2hWX8vN2e DyYaHhQ7XDxdU189SsTd dLXlSxleT17bE5SdhWP+ ZOAzHux8AIOxuMxrMV7d Y6HzMAMmrumkcTPf wZvjPI4xCCSyeqtcDOIn hK7sMGTlM5n1IbShLkZ3 HCgqJ8PwYIYdtmwwPv74 oL7dRbXcFcZ2KJge N5TqpnC6MUVdjAPoOEgn APY6D68pp3R3DUNbSPOu RLL8oAH4lW4xfTszzonx bGVmdDsgdmVydGlj WEtqGNwsL571NGRjoKcc PkNvZGluZyBEYXRlOiAg MDMvMjYvMjAyNDwvdGQ+ RSKmNAH4fSzsIMJd bWOqFEeeFq3gvCeqdAnb AV3gLRQktszaKCBieD4r PUSsxSLbcCvdHJ1bTBZt ygzqg009CyVgNNL2 BSOkvSIpV8SrdF3lFqFn LVQqWUGjD1XzbXSqSXmm D461ZQmjZqN8OFGihtVc T5RyZKNesBcpZqJ5 o1G1Dv8Ze1RexzddO5Cu xEHwXhFbAkkvAWj4S3Li PjwvdHI+WP79OZAsVS14 JLv8BUR5yTyqCEvy YZMdM8FyvA8mHaWdPPOl ZGRkOyc+PHRhYmxlIHdp ZHRoPScxMDAlJyBzdHls UY2cQa8sLFRzZGPy mYhyrPKrZhGnk0hmWEIq HEjfHK7zjWrmM0PdxZF2 HDLle6e7Zq92I24nB4Rq dXA+NWRmpLO5aRL8 yY4bWwNqGaT2PYklD225 LkZqgZNgUzqnd8tjf7pr rYo7DsX5LKUewsExfFgc QEP0q2VqCk00Y19h IHdpZHRoPSIxNSUiIHZh bGdunn7drF4fNi0+PGNv vHK2cLS1lH3rXfJeSyW5 ABuvT484LjVreFOd Gaqrg2qud6xhkJj6BbMe PUMxffMsjNmcFYI5q3Gr Yt98B3XssRygn8MxLzx7 xu06uENln8R9yQK7 A8YlUOPraizyxWErzKdh YV3wKZSinqgkDFKcbS1j QGQiM2l7MhDaJqB8DXfb Y4PwndR8OZRqjRXc WPTfiEXOnX3ymhaie2za guazWaVoNLRgYWk8MGh7 NSBssQnoLxIbBPT2EvF5 BJC0dPLogF7nlWwd ywrsdN9tZec+TDI0lOIo cUDIUS7mTzxhqTA+PHRk CRV6eVipRQsgIQJibM5w TNMyE3b5OmChEiR4 ZBtfH8KxczQ9HTWjfBWg QVUalTYBaG1pntaop8pm qpxhKoEcYLBnNHj4YLw3 LWFsaWduOiBsZWZ0 XbJ1FGL0iPEjfA8zbOcz yrkhyT6eIru+QmlydGgg NSI1FFs3Q8BzGvp3XBPy dBeiEV8msFWrLCsg Da8kvThoeXzaFW2nSDWn jqrfw497XcGvq4qkAWFn lQPjRTjoYDF7B37sn2T5 FABiNWAyPQU9zDV7 xG5lxGvuwlnxeIFznNmq orMnbPftGJarBFjoL912 DPYwjRutJkQkUTx6A9Ce Glo7UIDdzEswJS2f gINaYMwnRk8yoDptlQpp DB9xATNzbugcm694XdKn c2vxVHOxyDVtOHfnMTF2 Z24db6R5PRZwTXXx OBF0xIH1xK3jdSaaudsr bGVmdDsgdmVydGljYWwt JFazZ911YNTmlFljGwMw jWl2N4OfNgt9LNHi kJpkSS0fwUSvPSubIk7b xIsweJabRF3rJFNdyazx r036FvJhs9qdVCSnxELh TIyeDDZ3V96wl9B1 IAJmGPTbDFH4kVU0kC3o bGlnbjogbGVmdDsgdmVy pJrpIZtqOTsqJ432CKEr cDsnPlBhdGllbnQg IIudVYv6Z7CgSvwtfWS+ RO39PBCuLV62iEJbvWJc w2sxjBg2XsMbXMQdYXX7 fHdwJPnar1WfTTRc D90jhLVty5C1RKEllDbv rJWfPlIfpQK8fX8dAXhw rxnmu8fectqeMflko6yh vy24oU18O81bFXus ZHRoPSIzMCUiIHZhbGln cn4uaP6oGz3+PGNvbCB3 nTB5nS2zBNUtSjG7VMnj T135GuWcdDTaCwpp y7twl0linDn4MdZ8UPAy hjSmkUzdGJI8v6NnKv66 P17aMRnaKKIfDUCxQWTm YDCvlIqsvh8ulP5e Ii8+EWOfbYF5kNY3uT7c VxIgWvA5CYloK327McTw sMUfEmdsU46eO3CokKL+ BPEhRda0SIXlxYoe IK4gpCTqEIomDc7dSAM2 SrVaWpMgIUrzY1QuVACf iatxxxtwvOK7FAAoVJJa uB15Pu2dqLrsKIGb xSPNlZ1hxaqpu9vemjpi FcJaWZTiWZt3UJz9QMZk uMmqWoEjMRL5MiX2TRQ9 dBOpgG2vhIvtmhik vQ9qC5XwNRTclmhoAv85 rA9pAhUvRnQ9TUrwNar+ U7FALkpxXI1BE7kGQIzi SzwvdGQ+PHRkIHN0 kUeuLBoqIDSwxM3kLVPg P7q3YlGbKiD9IUvhB3Mk KIEcgijmNh47tK9yCzJn OqZ2AGbhN8YbhfK4 HENwrMPkEMiqXRW5N54h p3N0YPExEPGoYLS8yIC6 jS8lpMdqsnormZSvqGae dmVydGljYWwtYWxp N573LUJpaFswIiPcWtG0 GiO3PuM6P8IhAvk6FXAc mMnxMQ4yjBFdRTxeTa3m xEqiuKniIU0iACRk rknhHXGqeP0kDTJjcTSt vQaoAK6kWFRdcjmpm001 XrKmEJC8RCQqsIAhE9Db vJ8zXoAySBMnLNRl T0LcbQWzBVbmQ559OJwm EkH0JTPwlnUeN2FhSIRl hLmrEsE2z4N8Fu60PONY ZWFyczwvdGQ+PHRk OFE7uXrmZWtrVFSyuV5w TWUzN9w5CtOgUmJ2QIbn D8BnTZIoozsqPd97jF7k FzUgRmR9FLohQ8Pe vfF3GOVeqZTxEEvlLXJ6 B88ci1Q0NSIuDFAiUQY5 rZF4kU7rkJzfseusxKGt dDsgdmVydGljYWwt KZhpQ389EXHvcDfjWx2M PQE3U0MeQdz1XHWhdIwv ID0cbZMeBHjuDc1uaNim mCevMZ7jNZAxpnud YXQsiO5iNEFjgRCpxGsi XQ7eQUZmevfnk668CmOo TEZ4IYWxrSYtD7TywW0z XmNeBGFpMXBpX1Dx uEVxLSbjY896PQxdUtJ2 DGKuwrRuJ6QwCTEzzJel CwF4n4P5Vs0KCBukxIB+ ZE88gm85Y2EiIknq Lhe6JQAfWWQ9pHE3zL7q OYExGFuxc6V7hWD6K3Fe acIecw1vb8ypJCIrXSeu W09hkXQdo9I6ZGCt pDZ1UTDpiHbnTaWqqJ17 Oyc+BEPphKyvv0UoGqif w0dcm9ajzQi4AbWdAOKm baBiiUmpGZE0n6Ky Zl79V25mEMvcNHMnUXMj SIUzAWGzsSkjjw7hjN3s Ii8+KEGytUS7mCA3pS3y EmZvYuW1IGvtM970 DyPnfSKiLwwla3csu4si wBa3FfXsBPYoelZdyWpd RLS5z2XdAb86D7JlzOah s2WrHnk1cd32uCYj g7Q2jZF9R3XoFDZksngg pBMzfLtxMP8vYFGhrozf JZDagD2bRAXhS8q1KpIf EsJ3IRruF1KkgeP6 RYPuuDXfPRJxcGHVrH1e eelgy2ibaepaYhUvASXy LRj8UXi8EOQejZyoKcNs CVG0FhW4EJF0cCEc lS6ugRfsqsxjbO3sAyh+ YUy9a5qvdYHrWH0ilWJ0 OY96VG92kXFlf8P4lZD3 O2PwHIObvruoivjz kNF8JHKkRXJxyO21Fm2e nJkzAe7uODUqMAV0MGTi qZFtI9SkcO6eDdCqJRQy NSWiI6NfbKIhMTmj D554VNgvHiC1FBYbeuSe Z6BqSWOytEjoWxU6v2G9 Pu2SPB85TG10PM85mFCe l7H8gGD1S8KeQYOo qwlprmsqbDT7HKIjYOSa vA22Vv7zbFoyRy8zYZNv SXY7ANXhlSAiK2SxzP4d SsLzRUFxSRGiI8Hs mCPfCTovD627QDaxNgR9 EXAbbvBbP9LzQMJxsCuw HkP8d3G2Ky0YWt48TL76 WZ01xHMuk5S5qCU1 V4LlOZPffapfqfwbcIV1 KBSaUPWnfM25Vf6acAcz Rv8oQFHsZRN1VGXxvRHf H7FxiX3jUqZfFUWe WOVoD8VehKPcNBgtU485 ACyiFoW3QMOtfcYsE5Mk NUMkeOvjPgX0j5P2Ob6E KVjbyhp3U5YjBtfy dHI+XD23BBNdKQ17pQYf xCEed1xooCg1OzReEHCd AMJ1iMqbKAfdo9ExRMZf M72xqWQrk2N7QSZw bGx (more content not included)... [facility] Coding Summaryon 07-29-2023 Coding Summary HTMLBase 64 KmendbusGFx8jNv+PGhl YWQ+YJ3FBLFbP26riTSj pE8mU1EWCBiCEebyNGYW IHiJYzHxicBbTI6neVOy ZXJu IC8+NJ6yMIWiFcurhNBq b5N3cWW9Y98xff0wLJzq mGQ8GCTaOaUadfnel8vw zQb0HYpzVcdpHaPa YSAvhO61YFY5xS28Wu64 rULtoYGwj5tdpKk3YePg LNPsGHH5dYxsIVnkj7Jg VEUwA57yiKWji5R1 IGNvbGxhcHNlOyBlbXB0 pB1tZAfsjfzza2feoryd Lno5xx40gPGfj8G2qWZ5 S9HpkhZ1RXOsvYIz KwvonBFGuZ3ubgits2kb aiauHjMhCKIxQCy2GDd8 HKIreHyaEfOrPG02SUS9 VONsgcIoK1ThFTYs dZnyJwC4n9T6Ot2VS4KU UbidT3QOXSNHIPjkuMQ+ HH34am83G0SpIybpYyo3 ISQiASD4xPE8fC2q GVJhXNqgd4U0sUG0X3Ka ejGqtd3cq0ucGTDzIJaf P26apENwu4T6UCLtyNF2 FVUjjGplUhKvqP99 Oyc+MFMtkHobr0JvVuxj d5ofi5tajCn8AwpmVDZd urMyvDsbNRI2y4AhHf1a SUFwoKO3aMN5oF6h HuBfYeK2NXejD597EmFz sWQlVqdlQ90dS0GraYV+ LJZwQcq9PZBmeImcPQ1w D5OtAAKqiertdAUo dPreHS0tVGBpllkwCHEv oC4nZYXwE3v9WmCfChS5 TLznB2QfBHXnbosvBw26 rN1nYyUnWiM2JNpi C6NqllT8JHHtfAYpPIjw ARE7V84xd0L4JPKqSPRl AHC8xWB6fP9giBguurmw bGVmdDsgdmVydGlj QUuePRhlR360YMHkbNqg PkNvZGluZyBEYXRlOiAg MDMvMjUvMjAyNDwvdGQ+ BHUtCFR6hJyvZNRj gGCmGCxtQt5xiAttqKqm ZV6yRJKgvjgpTDKhgD2u SAMxjBVaqKntAY1tLTHe mxsdz451TxIzAFP2 BXYtdTMsA6MyzP4kJjUe XHPgXGFqE1AzyHGoMBgz I652VDzcQbF4HRDbolYf L8GmCPCpmYjoCkX2 l6T6Fp1Pt8DtbdgyM0As cIReQkSsWvxpGWd4S4Bm PjwvdHI+UN00CPBvGM28 PCz9SQY0uOrmJMvh YAVnF0TllQ3zFiPiHQGd ZGRkOyc+PHRhYmxlIHdp ZHRoPScxMDAlJyBzdHls ZJ6rQk7tKPQgPTFu bHuyuACdAzLvj6epGNUk NLdsMC4epVkgS6JicHU6 UMNps3b3Hy89N71hA9Wp dXA+YESchYL7zNB1 zX3cPbDuRpY6NHacG080 OrWrqJLcMguku0qsj1bg fNk1GqD8EIRmszEffPnk XKA2g0NlIc93Q46g IHdpZHRoPSIxNSUiIHZh cQytip6cmJ5tOy1+PGNv kQP0pSP5vT8zCcQfLrX8 NOlnV343RpMpfSMx Emsna0cxk4vmxVy6CsSk FINctdZkoWkiAFZ8i5Jm Pk23F5BobPten2XcWzt3 gh70dDIxs8T8tVI0 F3ZkCTPbjdmqjSDxzWnv HM9iNBQtgaviOYYuiN8k BISzO4v5QpRlAbQ6CTss Q4EtrpV5URToqQAq NMLywBMPbV2apfiop9yf tpgbWuHfRCKxVNk1HZw2 XZYbtHnaZgNeNTX7FnD9 NKU5gURegA8auIyi gnbdmI1fHze+RYM7qAJa aIKMLD3pKzmceFT+PHRk BAG4iJfuFCrcTULsdX1a WAVcQ8t3CuLiRmB5 HUiaJ9AuppG9HRQviRWk DTQmiQQWlR8ggbaey5bm zmnzIePiUQLyCUs4JZz0 LWFsaWduOiBsZWZ0 KkU3GTD6hYTgfI0acAfp ymxamZ6dUat+QmlydGgg TIG9HBs8Z2StKty2MKPo cXwhFI3wvOVnKPwi Ff6mzGmsmYyhDV7sUUXq sgmpk979NsObr3rjSYWi mIJlOQnmLCX3W72of7G5 JJHsZWTuUOH3rVD3 hU8odVcsshzawALulHyj veWqvQziDWayDQbeB631 XAJtgVkzBxErHKb7X5St Wru9GGSuyCuuGF0y lIYgRDtlRj5xhNyqcNyv EZ3sKAKluknnd999EpEi i5htLLCjwZXgQRquRQH8 H80fj9B8AFWzWGUe NIX1fBC7fI2udZmyijgz bGVmdDsgdmVydGljYWwt QAegC112WMMkpNfmUxDq aJa9S3JwIta9PUHh zLdmJB8nuKTuKRptTc4j eOxmeLbyWF1kAIMlwchy l493HzHes1vnHGLoeJFy NVlzGSA0R97du4P7 IVAvCAOgKXK5pTC7dZ6l bGlnbjogbGVmdDsgdmVy jMknQBjnPAgrE794BIYc cDsnPlBhdGllbnQg QAkfFAn0A6SnBhngpQD+ NG77NVFuET70kREgzIIn f5zsjGt9BsWzZYHbHHE2 oNsmOKany9RtVFBx N06lsJEwd5K8CHAogUzb pPFgYqSuhAA3lC9aFIuf dsqxf7bmvjuuNjhxy9uc vy17oZ87W73dWEud ZHRoPSIzMCUiIHZhbGln qt1qnL5wZb2+PGNvbCB3 hBQ3fT0yNBEdNzF8PUga G127TvVyhXToTvcn z8xiw9bkdXd2UoI7GCIr ugEryZkeJAO2e7AwCc73 I31fWDhvONQbEBTyIUJk XQPnlPgqtg5mgY5i Ii8+NYBhrJH7cTA5lP5n XuMsKvM0NBroK982XbLp dLBvJtfvO56yR4IkfCH+ RDDvPtv6SWCgiIhw AY7juCFhXAerBi2eHWL4 NjZeYeZtDSpgF9WtTHFn swofrbwuxRI4HXSmZXMr bY59Jh6wsAqkVLKq iFAPcC4kupwmw9duauvb XrAoDSEbTDp9YJg0OEUv xSnmDuEzUNF3TjT6BTF2 hOKdnQ0vzPfrcebx uB0mV7GrVJAuoeorAj34 zN6eFgYdNqY7PNgsZkm+ A4KIQophEF6PV7aOOMxk SzwvdGQ+PHRkIHN0 gSadXDtnSHXgbY2oXDTf A7r8PgYrDgC9FPcfS6Pf IMAubmtoRe37mM2oTePf GcQ7UHcvW1SucqI8 SQOofDUzEUxiDPK5L29d q2O9KIVjLSVsBBT4hLH6 fV7ejEadzlohlPYtzSys dmVydGljYWwtYWxp W420SSJpeJaiNcVlHbM9 IyA6CwN7R7YiYna2YOLj oUhrFN8glFNnAJycUu1q bNruoTpqBF1sOQOn caspOWHxqC4yQIZovMQh wBztQF5jXEBpulvld255 MoPeBHG7DOEvnYHpR1Du hJ0pRjIkHJUiCQEv S6UibAZbMDzwJ051SNdd QrS7PZLccgPkI9NjXGUk nFxlOsM1j3F0Lj50EEZG ZWFyczwvdGQ+PHRk MUU3gEizLJcvEDOzsG4n GHVaQ3r5PiDlTbO0YRzo P6TiEPBvmgteKa60jT6z DaMjMiR8CFtoD3Gu tmF0DTMajNYyHWytAPG8 A71kf3O8AIVyXDUbHMT7 dLS3bG7dpTikuziwnCPa dDsgdmVydGljYWwt NMdlT887ADJxhHopOu1Y HIL0V8JxAks2CYBhcXta IE1vbUGiIUfqYo0baKjk rWqvLN3aNEAjouzc ADTjhH8qQVIpkAHumGhr AR4hSFLxanpsu550DtIh EWV7EMQllTYhB1FkrM4i OpCfZKVfXQNkZ5Ld sEZhGAysC600MIpyLlS0 KONeqiKdB6HsNVYctGrf TtD7k0N5Hk8OTWviqVS+ QT02wx57Z7PpEpvp Ghg4FRDlGCD1rJU5vP1x YAEhXTtji4L2rWN3D2Ro uoPzbu8ki7kcZXJjTDpn U47tuTYql1C6YJTi sRU6RDGzqNntUzTcvN05 Oyc+UNVutHxjn0WgChnn r3ogb1nrfVc5AsFhFDKd tbZhcJxwUQD8c0Ky Wi71J59bLUvvPDJrTPFo SRXfGGBqrPignd1isO2k Ii8+MWHssPQ3hOD9sW3p YvPrLsC0MXbaN290 FlUjsOErUzdik3duw8tw kNo1WiXsLMFploIayBuu APF4q5DrKr12J5FjqCyo s6CeBol9wi35lMJy l0D2gPO9Q5JpKKVlkdzx dPReyBkcXA3dKXSptmcm DJZghW5vMVVfL6w1ZsZn YoU2VTdcV5FbukP1 DRSoiQJeALFipZFPjD3f eplcr7xepmgfPfFkYJAe LLu4INi6PSPhkTmyHuTt WAG4WeX6OQB3iGDx yG7bdEsfoitkjF4aJye+ MUo8x1pxyBFdVT9ylSH2 XC52MT07gDZhk1Y2mFP6 F5WgFFKsvcsdolan hGY3DDMhHYQkqH03Wb2s oMakDm4bVUWhUZL6CTWv xBZtW6TggH9mAgEgFNHz BJMyI7VpfRLgHLcl I232XFhgHcQ8XRBhusMq T2MiLWTqfCqjJmN0r0L4 Xy6EAK31KM46XD26zIMo y4E7eLK7V7KtRZSe xhuiuupduTY4XBPyEOKs sV20Tn9hkLhjZg8rFTYi ODX7APEadFIyW8ChvE6f UdWdBABkKVHpC3Kv bRScNNnjL119XGwgRhV0 AJLpyoQmI6UtUCUfqCip GpH7q2E2Xm6CAc08NP22 DU83iLKhw9V1eYN8 O8JnALAncukfvtwulGM9 ILYoBMWtcC19Sv4zgAxz Wl0oCPHcOIX3BSCgiPKl H0XowM8uTbBtAWGm ZDEfK4UmvEYcEVunW708 XOpcBlT6JIZktvPdU7Af LOObjOrzHaD7l9N1Gb4S PIheohr8Z1ZzVfza dHI+QG11UVTcIE84sPRj oMBfn6rsbPd5HvJrNDRz YYW7gDubASqxm0TvBTHf Q58qhTJrd7M8NRFv bGx (more content not included)... [facility] Coding Summary HTMLBase 64 OwvybustZJv3dNo+PGhl YWQ+RI1TUBMoX35tuIVv rZ9fX9YMZQhIBbuuHYOT QNeKEvJgonUuFA2vbXUl ZXJu IC8+XO2vIUMdHtrlyXKs y1C9dCS4R37cbn8oCIbn xQI7DJSdItHmaovyz9ks tDa3CYahSpxkPgIs FUWlmE93WVJ4aY27Fy25 iVByuRWgz8ekcPw8DlHo JNWxZVH5wUzyDXniv2Bb QFLuV57vaDRsv8S3 IGNvbGxhcHNlOyBlbXB0 mD8rLDpamppjw7ekuttz Gyf1vs46cGAhl8H4vTW9 E4RmevA0RTSpqDCd NrhrkCCLcD1kdtowc8bb amtyJxYsRYEnOLj3UUm5 NUIlwUcbHjBsVN41VKC4 OKMqekHnT9EzKHWx uXvwKrR7y8R2Sb1ZS1IZ QvnmZ3VWHNDKXQehaOI+ XR23wm56D9PiZjwsTmg4 ROXeHTF8tNM9zP5d TFYrUJzit4N7qUC5Q3Sp paOier4ca3xbELTdHHbz W59hnMEfp3R1BHWpxLP2 AGBdwZnzKnHuwS77 Oyc+VBDajCzpl3SbZynt z3eer5muoYr9QejtXFIy koZhnMtzNFQ5s4GrBr6v ISZisIU0hHS7eN6b DrEfUuT6SWpvD509PiRk oGDoFgyyQ46yO5AnzCC+ IJBwZhp3BXTaxPaaWG1n R7OyHARqkhsquYJc nNrsDQ3cBIQzglyiTLLd nX6sNRHuY6r3IlUlOaN7 HGqxW6KvNVVvhzrqTz94 rU2aGtZzUtS5SUvk H2PlndZ5QTPhwIClCEji ULG2O80qn6A1RQBtYTTe HNK4wPO2eR1pvTtpvlvv bGVmdDsgdmVydGlj TGqpSHiiC955BPUbrHax PkNvZGluZyBEYXRlOiAg MDMvMjUvMjAyNDwvdGQ+ MLZyWHD0gGrnZNSw xDUaWUkkTc0leAnuvGgc DF2oQQKzynmyABAiqP0d RCRntQFimDimKC1kYSRw pkmpo211YdLtJUF5 WRQivNHwT3TfgO1vCmCc XZErAGYzA1NraSZfHRon K479QAhfKrM2FSTugqSo T3GjYUJdbJndSuL3 a5F3Rv9Yp7EnhnawZ3Gc wUPdGmXcGbztUSa0K4Rt PjwvdHI+PK64GJOpZY76 VTw6STV2oLrvVAuz TXSjD7AnoQ2vSsBlCJZn ZGRkOyc+PHRhYmxlIHdp ZHRoPScxMDAlJyBzdHls AE7lTg2nOBEpYBMl hEhvlOBfBhWdw6imNYVe VHowNL1zjKrwY2XudSY3 PUCvk4p2Rc41E78vS2Ez dXA+WFXngYA1fVN4 tC3uHrGhXxG1CYhvF416 MoOwlHSfQstfp5avs2kq hVg9KvU9DDEgljRxxZvd MZO9f2ElXb34L71u IHdpZHRoPSIxNSUiIHZh bEhqhz2hdE8uQt8+PGNv yEK6rHM6kO8eOaPwJsU3 BJpzC350UhAnmUKz Dwdbp5kul2tykKg0CeXg QZJvrpOgaRlkTTH8h3Zo Hr24C1WzwVkms3CwTyg7 qc27uJPbk8Y4sHY0 F8YgNCFvoniuzZKwwXub LT7uPYIvyahhIEYfyY5f SBPqP2r1DsNnOuL6TEca G7EfirO4XFDeeFKi RMTsyZXYbE1tqxfkh4gu dlbtOkJjCBHpXDu1FUg6 OUYsbRgwTjVaQKQ6PaJ5 CHG5gCPfcO5lkQqq temisA7dEky+XXR4xSJa kLEQES7xFleseTA+PHRk TWI5jTmxDLqsNMBzrN3z KJAdI6c3GoJhCmT5 UMdwK4QyguT4XXZmdMYr OWEekPGNoQ2jtugii3id xnyrMiZlWFCsVWr9GPk9 LWFsaWduOiBsZWZ0 TcL9VMU7fGEtmQ1tsMkk xatvwG5bTku+QmlydGgg CDC2GNw1Y0YgJti5CRGi mAkiJX6usWDeSSxm Ky8ugPqinQuaFQ8lZORt dpuid512VlFnu9kaMYCv nTJaORdxNPQ5O41hp8B0 JINoYOUoOSP0lTL5 qM6mlEqesubbqPKfsEuq iuWevRlrALoiADzjW351 ZBRezEfvWfMfJGd7T5Gy Srg4HALngGtwCA6k qNUpYXabIr7jdJdmuXms VV5oECDygzscn183YwOt l4ixLESdnAOxXHywOGY1 F07wb6W8THBtOGFu STF9oQR0tR6zoDoddbec bGVmdDsgdmVydGljYWwt TDybB003NPBxbDamEeQq yTo7K5VvVrj1YBAk tXywRX4frLSnXOtcXc1i dWdhcRlzYS2gYLMecawy k748VhLaj3uiQVXstGZl EBteDJP9S15wn7K9 KXNeQILpQZQ9yNP9nP3p bGlnbjogbGVmdDsgdmVy jUhdUFwtSEwqQ074LYWw cDsnPlBhdGllbnQg MMcmZLl5O4RaIgjcmFA+ EX14CGHiTX54ySRbtJWv l1fqrLr2BkPcRPQfLQN3 mQgjXFswk6HeLGId W53ucNLkc6G0IBInyLjd iSOsSaTjqIX1lZ2eATaf ypnve1jezzspAvuty6zc ii26nN94E47bIVtn ZHRoPSIzMCUiIHZhbGln vy0grJ4rXq1+PGNvbCB3 nCR6nI9zZQZfAvA2QFlv G580WvHzmMZxPold n7fxz4rjrQt2LhM7BUCo hdQjsNlxZGB7d1SzVu83 K21xWEuaTTOuALFxJHAq PORizLtgps5wpP9g Ii8+XGFhhCM6oVT9qA7i ImBxIuD8HJjaJ394JtBo hDKpIouxK51mU1MmfBI+ MPVrZay7YWZjyRtf UV4vnGUsIEztDp0gNZN7 AwEgNyFuLFmbX7EdOIGk hkuerowrqPM6VJYyGAQf dU07Pl8vzWgiLTIr yQQRcP4izspcg8vqpxsi MkLdGFPeJUg2OQl0SWQv aXqcCqClYQI3RdU5RDQ7 rQZcsZ8lqTmckuhj sC8oY7CpPHPlwlzkUh18 hU6xToUrSuZ1VHikSjy+ N6FARbhcJC2XB6oOBRuk SzwvdGQ+PHRkIHN0 aWizCVoqZOCusH0qUNYd O4h9EbHpBxF9YOgvR5Cf ZFDzewrbCv44kF2zZdWh NrV1UVulN7QhyaO6 WALhgELjVQeeESX8H80v x1W2OEMiDZPtKJA8kEA8 tB7ixVzbpgxtlZDfzFqg dmVydGljYWwtYWxp Y611STByrYnyJsJfDiA8 KbS0LxW2X2CsGvq6HCZv aJupLS6jeSRtYHgoOn3j nCajbHtaNP1uPLHg cjekPBHdjE8yDEFyqKOk iEibZO5zAQAyebgfo019 TwQzFKI7HDEgpAKnA2Pp xU0fQgNzMGHhHFSo N6YsxYFjDGxrU381HTeq KzK2GZBjpeDjC0UjGWYq pQpxUaT1v1W7Il83QHRD ZWFyczwvdGQ+PHRk TCR6fHapKQhrBDCmoN3a VNEbS6r7JjQhCfZ8PShg Q1TcTSNrhzygJg25cJ6j ZlPyZzC7CXwkZ4Be usV3GIXhpFRmROavTHR2 Y25wi6U0CHLlMXEbUVP0 kBM5qP3dpFyjlznuvOJm dDsgdmVydGljYWwt VCpqX410QKAbyKasVq8S FXJ0A4GaFil3CRWrlFgy TL3daHWrCRjtTs3jxHia cNsoJU0pQNCvwxds IMUapB3eEQDeeVDxaEfl DM6hIMGhlaeqa231IyGr SWJ3HKZnuWGyS9AyjG7d VkOdTRAcTGXuU9Mc nLKvIWgzE483BSnuPtV9 ZODrzrLfW7FtXAAzoDtv ArP9f3Z5Bu9NSRxfxYK+ CJ24ii01O4NnSrax Cua1UQXeRFL8lQX1iP0g OYYlKIuer5S7hYF6P5Pk liSajz6yd5bvZYLlCBnd V58pcHDww3T5JUSy tFM2OWGllQcwBbYboT47 Oyc+WEXvpYzch1MvVxbr c7hoz8ekpSo9AkFzFPUz wxUogGvpWKV4q4Ri Jk78X32lVEphRPFzPFVn SNOlUUDhmHwbzh1qdG8j Ii8+ZAXjyES9uRW8gB5b XlEfBvP5PHmaG559 MmFffNNpNxdct4bvw6ei mKh8FpZlGRImqtYonNxk BAK5y5UwKa69X2UgnKbo d8DfBab3ei66qPEy t7N7vJA8B7PoVQGwmwff sPXcjCorUS7kXGNwdowc ODGvmI7pWJMcW9f7YkAj CsX0AAgpR4XkmdY7 NQUloZYfADPrlFMClQ4c gffqd2oyuzjgSvWbQQJv QVq6WDd1YWNfrNtnGgFn ULD1IwW2DLI5fWGq kJ1kzYmmapuqjG6qDov+ YHb2m8kyxYLtUZ7ffXK8 ZR27CK13uCLfr5G2cKP2 T0JaBXPzjzjidhld tFB0MNYbCPQmeK04Mj2r qLelGb8tLNHgJEZ2ZJPg zHDeH7YpqJ8cZwXqKNSf DJJgA6IerRZtEGvy S768GXneLbX1RTWijmVe J7SvVSBjuAoxKqC6y2A5 Lw5TSZ64VI40SB71wBUk m2H1oAA3E6OqQWPu hxfwharbiCM2IWCaAVNt aK88Ou1nsCqqMk1eBLDq YRM1ZEGguQTnS9BntV0i CrHaUSVtLDOaW8Gu kBTdJMucB098JQoiNsO5 TWMblpOxV7EsIFAemCsl FiO7y2W2Kl1WVi70VT39 MV86oKXbl0V5cFW8 D8CfSHFseqijrqhxiHX6 LLAvVBJgvE21Jv9vzZyx Lx4vEVJqQZC4QSLfkXXs F2AmwO9xTmOdGCZr DDQpR1MpzQYrYMswL591 ZIplNyN1ILIorlDiU9Do FIPkbKoiWhQ0v1J7Ma8L OVykbcl7V7OzBwol dHI+AF60FCQeXP11dNBj hORtk9oheAk8VpCgXBAc SFC0qMojRCjuu1KgTTYh C25rcEQuc9K6WWUb bGx (more content not included)... [facility] Wound Care Noteon 07-29-2023 Wound Care Note [id number]#1. 00OTGTIFF [facility] Coding Summaryon 07-24-2023 Coding Summary HTMLBase 64 JlrxxowfJUd7dJn+PGhl YWQ+AE9MNNPoO60lsQLu uD2xL2YFOKrCEtaiOBDA HZaIYySajnMnRL0xuSUe ZXJu IC8+XY2dLZOuEjameSKs t7G1cCN8K40hix5rDGpf lCH6JWIjYcYnzcxob9rj fZi1KPtdZmuhFsYh YLYtzL02ADQ3hH93Ev23 uBJbhOFmg2qfuMm6WrZb EZKuALJ4jLcpLTdds4Kv OTAgX78bsBOzy3U1 IGNvbGxhcHNlOyBlbXB0 yD0pHMumzcrkm3cgsftc Tuk2no90cFSyn8E1tNN4 I9LqlwL1ONHxqBTh YhgywKFJsY2urtvpz2xd liukWhZaGBLrHRi6PIl5 USUngJynPdTyFO12DUQ9 GTYchrUbS6VtOOLo jGflEfR6l6W0Nj1OM7JY ZbthX1GOEILMUAidfGX+ US59ab41K0ZkOzhyKzw8 KUYsIJP4xMI1aT2d WNDqUUivi5X6hFM2P5Ig xsRjdc0pp1fsKDYoNGnl F55xtNPtf1Y8XZXzeKW6 CTFowLiyPyXosB27 Oyc+QBEmkMgbg7MiEyrm r1hvx1gmxOw4IyuwAVLk dfSrrXinTCM2u1NoUj2k MSIfaUL7pOW9uZ1e RhXnNkP2JCbrB683TnMm uEYoEoarT74vR8DqtKQ+ LBIzUpw7VUFkuTbeUN4e T8TzXVUvtukluXCu tPujER2kFPJwnlroESLj xP6jLQDsA9g8AtQbCdX7 CIttY2WyOJCzltklZb67 lT1iHeMqOsO1CCze U1JqeoV3BWRelVYnIBir ABY8L31sh3Y6UGZuAXOd GAX8zDM5nB4xdJckhacq bGVmdDsgdmVydGlj KOwlVThqY443GBGzcBck PkNvZGluZyBEYXRlOiAg MDMvMjAvMjAyNDwvdGQ+ YQJpNCX2sUtpAZPs jYPtLFkvLz4ajTsvzCtp KD3vJAGregwxNYAjeF5h HPNsbADojKkvOV3vCPUv sacyw038OyRqTOQ0 TTOgsEFyE2InuS5mKgTx XXKyAXPoW4FqeGGvJMbs F139SZesAuJ2VYWttvFp H7MjUKVfhGjdXdP7 d1O8Ee3Js1DlrfdtK2Xz uMIoScOfQxfeIUw8M7Ah PjwvdHI+TS32VJRqZQ08 RSb6TJY4xLlcEEvm UIXpQ9KtuP3jEhZfPGHw ZGRkOyc+PHRhYmxlIHdp ZHRoPScxMDAlJyBzdHls AO4qUv7eDHVxYTHk qBpqhHSjCpZqi0vgOUBs MUtwUF2cmFmgY0MuvFO8 HMMyt2o7Zs77Z83mT2Ti dXA+JANhtLL4uQN9 nR4zJcMrHfO1ZAarG102 HwBigFDgZucjc2miq8tb oYe9ChG6KSNjraPslHvd DIM3i5KeSq43G45f IHdpZHRoPSIxNSUiIHZh bMhnic3nbL8qSe9+PGNv rHL7uEY5dP6jBgXbVaV3 OVnmD593IhDjkJZz Lohoz3bdc1xrmUm9QoEn MQGivoVshAtuSKZ7h3Xq Hi34T1HcyOvyt4MdIkl7 bs62bAVxe5G2fAP5 E1UkCJVqckueaHNxsDms VH2nGUZugifuWSKpeW6w SIVuW8f1OaLoZcS1KLgr U0AwtqO2WTFknSIj JHQxvKXUoO7zaregp3yx vohyOaPaUCGnLLy2XEn2 VXRddNkeKlDwIJW7VqM4 VNB9lDBofT4trTjl yxihcT3hJqp+MGZ8sNXt fKEPPS3sMhdcyIW+PHRk OJP6tVnqWGyzECRezA5a XRRrB9c5HbSnHuS4 QYnxG5FrfrN2YJPnoGQg BJOeaJDHfX7incnfp4mm ekugXjGjPDXbNOl9JJu3 LWFsaWduOiBsZWZ0 JjK1GCQ0pTTfgL7mpZsc ujsglV9iZwf+QmlydGgg UQZ8HHi6F7TzTyl7DLVs wAwoZN6fdMZySPlh Ri5bjWwpwSxjVN2oDWBp zfzar753TdTwt5vrVJWq iTLjOKdcJOL2H36rt6Y7 LDOjCCIoCME7rUD6 tW9vcLpbgxtxnNRxnWmm srPtaHvjBSsdKNpzD483 TUCdpMzcDtJvNJj4C2Pv Uhw8HTBxaQowBK2v gOCyPYyjPk1nlWxpcUgh XG4kDIAxlwrga091WmRg h5gjWYEynAKlFNmoOAR4 M47vd0O6YEVeZRLg RDT9cCE7vH9fbPzktpzk bGVmdDsgdmVydGljYWwt OXgvR342TLVjuFdaBhEi bEv0B6LeSpo2TDVg iEdlLJ3bhTFiTNdqNv8o zBzivGvcYP3hYFOqwyss b237DyGbi1cuBKTzxRKr MUqhNFG9M94fv8B3 YOEwVXKvWKT8sRU6eR7c bGlnbjogbGVmdDsgdmVy iOzcYGqkUApbE049EIEi cDsnPlBhdGllbnQg LKxnJLi7H9GlUtselHW+ AF36TOKcKU02oODvkWPi z1fsyFi4ZhOoOMXkEOC1 yEepGEupa5PoZOFb L04lrZJka6A7QXGolGds iQUeToVnxKK9fM2aPZlr fgjmt6efpnzqIkaqg4ca sg00fJ66N53oDLus ZHRoPSIzMCUiIHZhbGln hu5gfY9wAc4+PGNvbCB3 fRF6zS5uZNOlOcG8IFwn D676CxGxxWUaWtub k1vrt9ttvHz1JhI3YASq naNfoFptRPV0d3YsGi49 W83nNGrgQMVcUTOpEGLu EBVcwQrloo9xqZ5y Ii8+LLPfhUM3kZG8eC6m DjEsEvC0VWpyZ848OuDd jBJaRmnjW75rQ3IjmRR+ NDVzPld0ACXchBwt IK7iaJYuRJmnOz7wFOQ1 EcZtHbHgNVksA9GsDXEp kxqjpqszuQX5QWMwVJBk lN46Rh6dxHxcREFu xDIOtJ8qgifsq3mychma JkOqRWNmGBp7EWz5ZJRc rIcjYvXhDBH9QwR5ZLE2 vCEmvA1hsFmjqxnn hP3rR7EwZZJreiasAp19 oI9zJkOuXaF3VRppBlf+ T5LWKqqkHR9ZQ1gSQLpa SzwvdGQ+PHRkIHN0 kUsgIEyeBQRyuA5iNOBy J4l1SjLsDfI0OBeyE7Fg DXOjwimlBb16rJ5dJdVv AzU2JMsjC9OvkiN6 NVHfpIJiISshRUR0V37c b3Y2CUUyKZLqYUT0bZG3 cT8qqCqqzxujgLZeoCci dmVydGljYWwtYWxp W129KTAykOheRaQgCfA4 IrM6BmU5O6LvOho4UPAp vTdnEP4weMGuYQunOq0p lRkxdRxiDC6kGLRi tepmOCPbpA3nXERhnCUg bKzcDV7dXHOqgxwyv916 CjGcAPB6RJFvhQZgV2Jl bZ5yVuEvRSCqJCSr W0ZbvNWkYQvqT545IAls JyU1LELiefWsI5HrZYNz wNuqZzA3p4M5Vc31XUDI ZWFyczwvdGQ+PHRk HBV6qVsiZQjfEFQarC3y KTCdL9j9CbVgCkK5YKtf S9ItOQKwecthDg11rF1k DqFrIbF2DMexY7Bp iiW7JAQbjXGhRVumDUU8 M76vc7D3VTIwPZUjMQZ8 hHT3nD8lzPrtigacaLQq dDsgdmVydGljYWwt TCmlB557MHNanVxpZk8X CLE1P3NrKlt7DLCneBsb BO7bdWGsCXoqOi9mrFmx wIsaFU8tXVIncafz ZKSakW4bVSDzyAGicGaz LG0nSGZhpaedc373TyVt MDL4VNQkqXMaC5MntV8o JjIfWQWtQOXdX2Lq eCBhEWxvF309ZFljJtU6 DJPwjwMyE0LbRPXxnYoy QrE3x9R5Dh9DGMtzcHB+ GD84lh48A0EiCqig Jxu6EXLoIXM8qEE3hC2o YSYhMFihl5M3sUH0T4Ch ebGdhv7ut5pvNWXgAGfg O32jlJIci1G5JBBu wBP6VICpqSchAaLbbI48 Oyc+NCWbxHdgx3OdBfau q4oad9zzkVy2VcGyLKYj hdOzyKamYHJ0s2Op Sv29R63lZUvlFAFnDRHw AHEbBVHokRgeah0ksU6x Ii8+KYOvbWU5xNW6fA8z TuLqKjQ4NFhmL898 PhDpfCQpDfgsn0lrj4dr rKo4AfTuGXGoeoDctNbl LOE9q0XkJo69R8IkoUrk s8WmQfb0oi72eOVw y9D4iVC2G0VvKLWvfvqz fCVgnNqdLM9kAWQfjyzl JXPvwI0iQOQyC7v1MqLe TfE3AIjhI5YcmrU6 CKCosXCzFWFfvMXUcX6h qjylm0bnoxheZaPqRACh SNq0VJb1KFTmhJqjFoQa IYS7EmM9AHF9jVZv fC7zuSifqeinmF4zXil+ RKx2z9twqIJyQD4fkTD9 ON03LX11hEMdb4O8hXH8 V4OiWAHxlsjlypkl tOE3HATqFKMafU42Cb8d uRgbVc9yWCHxYJZ2PHEz xPAuL7HtzQ2vQoGeEOOi IMDsU5EwwVNjJIab J512TWsfIgR1VCOjwwVh I7LcKTRxbOwfRlG8f5J8 Ni7GJS11XJ98FK67cTHt z2M8yCD2T5PwQYEu jpjbvtopiVX3HXQtHJMe jO05Gn8prTsmNw1lRFIq RAU0JKHpvTMyO2NbmD9f PiBsTKWhGZYvV3Ov yNHzMOhwX696SEhqMqD2 IYPyhwYqA7CrKZZkrGzw QdK0p6T2Jk9DHb43FK05 DS49jIGqu0Z9yQM7 J4RiINXudngmmsbosXQ9 MZQjLGKhjM90Vz7dnZpr Jk6mLSYdOHE5YVZmzSMq L8HkeT0pFgZwPVLg FDJyG8QryXKnJZlfT412 DKbyPcI7BOUlzfKhT4Dw WIZnyUlhKqN8e0X5We5I ADwkphz3Z9UzZheu dHI+QU60RHSyGW48uCHo jOPcv6rsbPu7EoKePATy ZDT6mXuzCEega7TfQZIr E06ebHNax7S6BLUz bGx (more content not included)... [facility] Wound Care Noteon 07-22-2023 Wound Care Note [id number]# [email or web address] [facility] Coding Summaryon 07-19-2023 Coding Summary HTMLBase 64 NckgmejcJIw9bAh+PGhl YWQ+SA4GJMZrK63lcXZg iK0dI1LVIIvFTyadCYBE QPcAJcYddkWvVY2kvCYw ZXJu IC8+PP7yATExBkyqjMDx x3G0gJV9P62wsp4qKOgy dBC6XCKbIeLubismc4nk qEn8LDbnPrbjBnLv WRMhbO46ZBU4qO52Ey52 oKMopNAqp0lihLx1UwMp UEQxPJB4xJsnEUwnq5Vk IFXcG02hgKCcq8X7 IGNvbGxhcHNlOyBlbXB0 aP7hCJwavvhko2vugcpe Gtf6th88rVYor0R2nJF4 W7HxzfJ8MWThwVBw GxedqEAQeQ5hldejx4cw bkmcWlAxLCIeTQg0QQb7 YQGbiOgzUwIoRU29XCZ1 CKGltpGkQ5QcNEKs oAqbXcW8b1U2Xa1UH3TV ZuagP8VFFQVQOBmrxZO+ PQ55un79A9ArKnutXtm6 LRZxXXW8uYT0mK1t FCFgGDmcw1S0nZY1R8Ou ucLkoy3mo9bqPEFySChp A57zlKShp7E5ITNytIU9 OHBjhLywUtKjmB05 Oyc+TKEhzTxom3TaYbvw t0sjl5nxyNa4IfdlQVCj thJsvSqwKTH9g3QcYd0h IQEyxKR4xFE0vF1r AmSpOyH4EFgrD402YzGd dXShXatkF88qM6BqfEA+ NAXpIoe7YJSozGevOY1x N4YdAMBhzwtiyPVg gQmuMZ1sNYTeljcmFCPj dV7rNDAoL6z4FwAdIqE0 OMjsR5VgEARkvqvkKd34 qO8qPqYuLoN8XMsi F4AwbbZ8ICJvtPKvNHyf GME7H40hi7M6BKFeKLWc YTV1zXW8jU5cwKrkmezg bGVmdDsgdmVydGlj SOohVAwqM531WWOygYhz PkNvZGluZyBEYXRlOiAg MDMvMTUvMjAyNDwvdGQ+ TEOfALY2jDavTLAk yGNvKArtQv9iaSslhKzl FV2aFHQxgqaoISFihM2l CAZlnRFgwFqaNN9xVBBl kecdk810BtGnQIL6 CNOkwFKvB3NkfQ0aOrGa GJUcNHZfL1OecVNgQNbm S821PYecMsD4PKYnbtNe F5EvXJUwaHgnEtC5 r9I7Zv2Kf0RuimfpL7Cp qHCnOpSfHjwkGUk5E7Te PjwvdHI+MN06ZRWpWN06 IWw9OOH1mOgnRMhc RHHqS1UypC7rEhBmOPXp ZGRkOyc+PHRhYmxlIHdp ZHRoPScxMDAlJyBzdHls JD5rPw2hEPCrDBJe dSpqdBHgYqUrd6woBGGz AIsaCP1ewEhgE2NpwUE5 WLDwh7p7Yl86I36uD6Ir dXA+CSPvsVB3eBM5 fP9jLgAiOlZ7ZFceL527 EiOvbMRoQwayl2nrn7ip yJb8LgL9VOAfxtKxmYni ZVI7a0SqUu84I75m IHdpZHRoPSIxNSUiIHZh kMqpfe7wiN6iHf6+PGNv iZF7rLB2nM2yAaMcXxW6 QWxkS017AtCutCAo Xfrok5xox8dqkSp6WjKu USOnbrHnoCioCCR1d4Bl Kg74Z2LwaYqwk6GfEkd6 nc82tETvo2U9nUW0 G5YaEOPqyulhqBWyuWsm FF9rVIVpnttfLVTrlC5e ZZEgE9o3FpWdSqU8TUmz U8IqirS3ZOMsjYDb QPQfaIPWtF4ktpvjc7fx uagaSjFrQATzHNw1KIb7 NEEntMgdSbVcXJO9WnG5 VHY4gRGctA6leKdp vjsbwO2iOgv+ZCC1bOFp zIVULA6cGeijjJK+PHRk LNC5qPwgKUdbSZVkwB9q XHCkN6m7IcVwVdL5 KQyoN4WgukP0BHWdlHIf IZYnzEGHzK0akniwb5bq jskoVxKwNJWuJLy4PRt1 LWFsaWduOiBsZWZ0 ZaS7GYJ5vMFviT0ibMsg fqxdjE3cOdq+QmlydGgg RNJ6GJe6R2PzPye9BQEn jMgxSR2dnPBuDKwt Xi6zkFgqtKrmJS0lKCPb lpqvi788AvHvd2fcXKRo mJKsNKbjUMU9K80bl2V6 MGVeVPDfKGI2iUL0 lI3jzQxyqgwdpOZtmYwt lpHkdMhzVGgtPDqjH025 HLWliJfoSnRpZTr0G7Aw Kma0DUCdaUydBH3y dKMcMIajBf3swFmshMhs TW9kIXWltxtpf618AwXo w5nbVSDfkHDgTBrmVWP1 R14rw4X6YIPjEPSu HIB4rIX3nM4oqGknjfgl bGVmdDsgdmVydGljYWwt BJcgH789TCXcyWegRdUu dDl9P3UsNvz6SJHo qAeyCS4idIJsHUopXm7a mKrijBeyFL0xMQXxmozl l594FvHlf0foAHSleSMj FYuuXNK9C04jn3V6 NZYuKDEwFNY8zIM2hH2v bGlnbjogbGVmdDsgdmVy cXjuNHwaLYviL507IHZg cDsnPlBhdGllbnQg UEefGPp9F8VdTftdrYR+ FD89XSHpQO44xFNneIFs x2xosDt5GgUmSBYhROJ9 uPtgFHncf4MeICFq Z03uzSMrc5P0QKPnxTrz jCRjFjPxiAZ7qZ6lNImj yxzaz3ktpyijBddnb3hq un28eC27Y17bNBqn ZHRoPSIzMCUiIHZhbGln ns3waL6iGp8+PGNvbCB3 mAH5vP4gTUSyCvD7JZam M345GnQxfZTtYodl h3jsc7tfgHb4AwH2HBIy ciLjbOfmUFL1a0LlFo51 N46gJEvaWODyYKZjVBIv IKLoqOnlgs4bvV6b Ii8+UMHutON1mIG2xP4g EyDtTgC1VJycD442DpZg bKKiCnfyR47xJ9RiuZN+ NDEbYwo0CFOmpHia VI5meGZkNLspDl6vBDR8 RbTjNeJhNXxsD2FrAXHx vrelguzikSQ1CLDrTPEg aC95Gq9dbJmaDSUs eIEJvV9lfoeib5zvckjh DkIkVAGaPHw9RIi9PPHm wQmiEeNtKOS1NaN8ANI2 fKSyuM9bpCrmvohu tK1uC2PtMKGepomyVv58 jS1iXaLfOdO5FNjkYbz+ Q3YJIrpoIM4KJ0eKYZbi SzwvdGQ+PHRkIHN0 gXloOWhqJGSgyK8sQNEq P6a2NeRgDgY6UHgoW8Wz HPZxqjjzHz63vS4aUyZn IyK3MIllR1LhqcC2 VBIbaKGfUVlvFNE9A52q q7M3BODhTMZsTXK3eSH4 tQ9ntEovstvtuEKodEzk dmVydGljYWwtYWxp B347LBUqiPsfCzScHxL2 DpO3VeK9T0IoWfk9PCTv uZjuSX2neGMbLQhdYr4j jDcxdRfkKE5pZRUl jwdiPWRluF3pQAHwiMNi kBtiMR1qUIGafnuoh887 YiMkAOB5SDSotASgR2Ea qN0mRtDwENNvBRLc C4QpqYUzUIywJ335MEdt SjQ8EKFojsIbY6DjHOVv pAmzBnI5l5G1Xn51MNVA ZWFyczwvdGQ+PHRk YLV9pTzuQFjoUQXdmD6d QQKeT5p8LxGkLzZ9XLkq F3WhGROqsoebYe24eB4o UbEuJgF0FAzfJ2Oq hvF7ODQcfHImHJsfASX0 R32dp6E5GKEpZGJpELN7 lTV7eY8bsHuvmpquqSNd dDsgdmVydGljYWwt UWvbF950QUGsuHrlVe6P YYK7T8BtVba8UGXagCqn VO6cdQNpXVceCc8ykPlv jLerFD9jGXIujruq POVbfP0cFKEzgOXedKvr UK9gYAKjzmkrj305PaZg BLK5DIHeaILbK4ShwH5j AfPjKZUxSISpD9Gz cKPtZMxaI190ZWgdJqG2 UVHcrcZfO9VqEJVkyMee XpT7a9N0Jr1AKAqfkCQ+ NQ37ft72J9JgPzzq Qiv4URAmUEY5nCO5qJ9x TBXjSWvkh7H8nGY7X1Dk boOdtv0vy6dbRGVcYGxr A38dgNGff5S6BJBn yIZ7YWGevGemSbSrjP76 Oyc+UJOijQjru5WrMycd j5pap8fbjHl0XlQyXRMx vfGtrCvnENG7h2Vd Zi77M05oJAetBHDpHMYf WHPbQKCptTubzg7dnY5j Ii8+HWIjlYX4mFO9wB9c OhNtRqZ6EHntW791 QhUxbKEoXuwkt7cdl9oc tDj2JfIlJXUvenYzzQcw AGK5c6JnXu56N6KzuGcm i3DgDaj0bc90wAWl b1B6cSX6N6LjJXXfupoa fLKdeBwgRH3bVMPvexqo SIRdfP3aFPAjZ7u8OjFj WsM2LAyqH6VmdfU9 NXItuRKmRZPdxQJFmJ1c vqopt4dcxjawPcBvXBKa WQl0LYj9HQKblWcbPmJm ZYL5JkK9GMB5mXJi fH2rtPwrweiwrS1sOml+ TAp9e8eqsDQdXT2iiLY3 LJ80RM93mAWna1Z4jFA2 O9AtELQkrmtkbjhd dAL1WJGdVTXfkF00Do3x mVxsId4xRCUqKLX4EDXx sXNsX6IkdP1hLdFcEBXn CVHvG7LnfLQuUDaf P663BRwjUcM3IDCvdeSm O8MoMBQdcBmfFkH8i4Q4 Si8EGH06KH53HB36hZYb u7L5iDC9X0UlUNOa whucsvpskSP0VMNrTHSf bR99Tu0bhApbHf0oSZVs QSJ2ZZJerWGqE1NjpF7r JdGgRTXaLFOtY6Dc pKEaSUtoY095MHexHhA0 GHIrimJsB5GgHHQlaJdx YwN4t0M7Yu6PLp96VX34 EE31wBCwd7E8rPQ7 S7FzFXTvaognofckjTG8 FHHuKAGawT36Bz6kqZua Gu9lZPYdAFR3IQJzbXEd A6YyuH9zSpEnSGNx KGHpN9KxdCRhERmlM178 MVbvTfZ5MPMzcnZtJ4Hy NTHxrToaDbZ8v9B7Eq2E URprfzo2F8OoGkcj dHI+DY87SFYnHX98gNTj eQAmh2dlsKh3JpBeBWIs PYS4kTvfPYjbq8AbFFTu G79rgEPdn6N3BWKw bGx (more content not included)... [facility] Coding Summaryon 07-17-2023 Coding Summary HTMLBase 64 NspfuvafTUg8pKj+PGhl YWQ+AJ2TEICsD68uvMNd kZ8mE2DYAYzAXnchWEKF SJlUTeLzkrFkTL3btTZm ZXJu IC8+XG3cUYMsWldnrZDu w3G8sTM8V39azb6nYPvq hGS3NWHcYbHlsayzs9jv eAr7GBgoOwegZiXc MVNpvF45HVE2vN21Gm90 tGTuiAYgj2iriKd8MoOn DKBgDNS2dTsvJQpnq8Tf LAYgY64euEHoe3O4 IGNvbGxhcHNlOyBlbXB0 aW6kATwwmjnlc6snjgry Pjr5gf52zUQwo3P1iXO7 R2HkicC6VEGcfTMk SszhwUTMoG8rvhrvx8mt siudTjTyOWMcUZu8WCm5 RLOvmItkEnPpCG32AUZ0 MSZsheQoY3QlCTBr iFniTlT9z5D7Ik8WG9KS NlicG0EKTFOAYVnosRH+ QW71bb43R7IsMqsgTcu3 WRInGVA1tBE5aE6q TVHmZDeqp0B8jZT2G7Ie gzNyne2el3vbGQOdRYep U10ybMEqf6O0QLCvaST5 PODzhKmrGoUwfQ31 Oyc+VBWsgDnyb9NaJhyn s0blk4zopAs9BewxNOUl onDqmQdlSVO4t8IaEm6z RHJljED3vLI0dV3z UcIxScJ1MBlnY062DfWl xQNdZpudV87oN6YsqLZ+ VLIhEfz4VAAyrQugWO3q I4VtWOMvbfkvhMWm zMqtBL8eXFAcflkiBDCm tW8yLNBmR0q6KoIaHdN8 YIenU0RvHYXtbhjfZs37 hV7wGaIyRqE0VQnk P5WqvsW8CLPdhSHkTJor KZY6T82mb9R5EPBlVVFf ZLE0mWI1hS1bhHwrxfac bGVmdDsgdmVydGlj JZlrGGjmX402VNZevCzs PkNvZGluZyBEYXRlOiAg MDMvMTMvMjAyNDwvdGQ+ GZYkQUF4mBqfANZw zDViPZkiCc0ybNkyhHto GT6lPAXicwcnEMVhiD0u FRUdjERceQpvBD9bBOVq cazsr984VhKsJYU0 DNMyxPWdM5KhtB3uVvSe FXIaIULpW4EblTIlUXha G748EJnrPnS4YBOefvIa J0DtYXWmwZytDkS1 d7D2Uu3Nb8YzvyxdU6Ab dXHmMzVhEwksNKp1D4Ka PjwvdHI+WW85VLPtRC17 LRq2YJN9bGfhYHqq QFEqB2TfiV5xCyWmBUKu ZGRkOyc+PHRhYmxlIHdp ZHRoPScxMDAlJyBzdHls AR7eRt5xLCBmUAEp vLuihYVmTbDiu1ktQNNk SZkzDB9ljYibM1AnyNN2 IHGfr6a9Hw34A73iD7Ld dXA+DNBwrUH6bSD4 gM1kCoLmIvV2TAhhB558 AgYsqPAuIvgql5jyk0tv zIy8MaW8UJVzsgLwoNlu UFS1r7DvDl17Z79p IHdpZHRoPSIxNSUiIHZh oJpvdo6brI9iIv4+PGNv cMV4aYS4jL3cUiMuEbE8 ZGfpZ000WjPhoTGm Epnam7req0vfhNv4ByCi XQEwzzUhtItwQKV1t7Ij Rs29G8OyfBrwd0HnYsk5 qr53tLJzt2T3oQS4 A1SnNZAvfvoeoEHigNit OF0tATDngnopKSHacW9g NREpB5f0TeOmUmM3YWtd S4BmqwC2SGVftQVm REMstNTPtW9pimxoy3gr bpvaDfHlUDGnSOv9FOr5 BKJaoIwuZgElESE7QuF1 VSC2lSQsfE8tnXyy sedasN6iNyf+NQL7qYCc dKLZEG9eKvcclWK+PHRk DPP3mEebAPelSJSsuV4r EUCgW9w8KuSlVdJ0 FQoiN7AqbbL2PWXuuFPi DLWynGINyJ9amczyr4im tkquCcRsEYQySTi3ZWq5 LWFsaWduOiBsZWZ0 ZhW7DRT7fERmoD6gfUeq mxzidX3fRok+QmlydGgg RWD9TXs9O0QzElf0VMZc yCbfAY0gjBHlWGkz Bk8cwZmihFxlOH4pBBPr xhmnx339DiZor5gsLBFt bNRvYCvvXTO3F43ij3M5 MNWcDEPmFFL2sBP0 cO2fqHdyvssakCNmlFdk mbHgpShfVWqfZHexM417 SOTonPhlNeZkNQw2Z6Lf Kfd7LERtvEssAJ4d mRAdCLsgGk3ziLazzJbd SD4jXYOvgciza781CyYa k2laMYOgmMUgXLmmMYA7 U41em5T9TAMyGNIk IHW9vRT0rL8arTzicfpz bGVmdDsgdmVydGljYWwt NQjoZ283ZEZpsRojZdQl kXq3F5IuXor4GYQv wPpfFE7baQYtJHnxLg4y rVohuLqpOD2gPBXdlduy n626WpYsc3fjSWBadWRm JQggGNT9L36yf6C1 PXSpTZKtNWG5uLP8bG6o bGlnbjogbGVmdDsgdmVy dFayYPxoSTkmV170WRAb cDsnPlBhdGllbnQg WZlrNGy1R4YzJtfibQS+ GE76GVPsFD78pOKloBWw p6krwNm8ZaXdKQFmGOA4 rLdnBLxmx5GkVMDs L65tgNEtv8B6JGRshFpo uPPjSwThkTI7pX5sQYot mdnei7vueasfMqwhq1ft sx72eS64U84fEUjv ZHRoPSIzMCUiIHZhbGln fi1dxR4oFb8+PGNvbCB3 rUU1fC9nQMZeIbV2AHkh O428PgCxoEWgEkor w3ocq6mqpFx5PvY1RELf ppIiqWvsTZZ1m4EkUk87 A96aZYuzCXBzUFGiPRSm GXNdeGdbtp4vqZ6v Ii8+CLEttAW8nJV4nD3j ViOhDpY7BYyxH749FsCx lSFyGvntY87cM9NhpZB+ WXIsFhu5TGYlqByc WH1kpOUaSFeqDg5kSUQ7 EaOrDbYvERglF5VzKRWk ghawxzxnqGU3MHTmWXTo wC07Kr7weOmnNXQm iOPKuC3gzhkyv0wmtalv FyEgXNOcSVt4PUu1SZOg bIybJxUlWQF8UsW1DYC3 lCGnnW0wzOktmwll cS6nM8XlZVFjytbaKj78 wM5zNbIwBqC5FEteGcm+ D8WXQoexLS9WC4kWVBhe SzwvdGQ+PHRkIHN0 tIhdLWnrVBHggZ5vXUJv R7k1DkWbUuQ2KYeeO0Jb YTEloxlxZu04rH1lJcXc YpT8GTaeO5OjktX0 BQWutYLtHHfyEXJ8A87p n3G1UPGxUSIvZRZ5qIZ6 oH9igLmkclvnrDZodHbt dmVydGljYWwtYWxp N364HGFytAokPgCsDhH0 KtO1HpZ6U2OyFuv0LSHk lSrjJT3ekHPlFRtcHg8w gCrsdOglQW8gVHZo whihBDTfkJ6gIXKnfWEb mVtaEE7rPEGamlpia814 IuCqFGA8SQReuEUsD8Nu fL0dQrJwEMJdWWSh R8KuyVCpJKlwT471TOcn KuV9NYAnndDsA9XoMAHb nKtfTwX0q7Z1Vq14SBMX ZWFyczwvdGQ+PHRk BPY1dXulHKtwSRTkaH6e SMXrN4z4NoTaCuG4SYwp D1MlDAIjgoxuMw78fN0g GsArPtH6YMnuW9Gq szI2FVVleVMgINnyCHX9 M43bs8G7CCGfSQOdGKI3 rGH6eU7bhEihdyhowJZu dDsgdmVydGljYWwt JWzuC381NTImkIiqGp1K LDE4W1WwOio7IELhwHim LR1olOTlQPqoLs4goEjb xHyvOT6bYLFrraka EBLjeY7iNYAkrCTpbFol RC5rMVUnajzje980DySq BIV3MDUcwIVzS4FsyT8f LhUzGSPwZIHcF8Ub nEGgCYovF387OFgeUtL5 SNUijqWkQ3FyJZNbuWgn RpA4b5N7Nn0QHUfgwME+ VA20na33Q0OgYtdk Vlq5FKUjLMC0pDN2eD6w HEUaDThru9R7rZA6W9Yb fuSrff9kk1vsNCFgPRdq H09fgXIou3G1DUWn wLL8JUGipXzjXgIjsE81 Oyc+RLTtiXeba0ZrKzmf z4mqk7mbkTj7AvKbONWv lbCjhCpwHTK6l6Sd Px50R34fBJcrGRWsUIGn CBVaGZTuaWkrzp4rwX8c Ii8+HOPzjYR6iGT8sH0v JfFqAsL2ZAeqB046 RgFilGKkNtptn1ezp4hg cXb4EtYkZKFyjjPfnVsu TRE5j4FxOj52K0StdRbt y9GdRup2ki74cINu q8O8nFH7W0ZuRZHfawpo lEBmoKhfLR6iNXBlvijy GKIemL3lGXPsR9m2OqIa KnU9WLneM4MosrY9 XASfdKThPSBxkZIIpO3c qmumi2amdsqhRjGtYTVr FDt7RXz3XRIqrCqjHwTm ZYP6FwW0FWD1eMGz yE9fwVkoscsinN3sBnk+ OUq6w4zgvYCcJG3osTQ4 ZE34ZN21gPPdr9K5sFY4 T3KvURIviftcxxpu bKI9ZKSlRDKbhA36Xf5k sOomAc9tJBDuUWO1VHPy zUFlY2DgsD8vRdAuYAWc VZLeG7BxiUShCWqf J625XMcaFqK0FIDaduNl Z3WjSXExvBokWaT4w7L3 Sd2KFK03ZN39VZ10pTLq m1C1wET8V5OwDGTr paqgpbshvXV4JCQhUSVu yO57Ve9trRcaYo5aPICl WFY8HKAeuXPqP1QagF2u YoKqAFPkVVNpV9Sf bHMyGNhkV834AYldYlC4 UYAskxJwP5ZiLVXrcOkn HgF6a9O5Qu2FFx63QJ34 BP15qQPqj5U2iWB0 D5ZcJACbwhbrwtulfBU6 UELvJDUsxH82Yl7stAli Xw6vJOCuLNM9SMTkuKKo C6FylA9rUfCjOTXo RBCvE3DjdRGdWQsuJ604 RCsdSwD1BOVdnxMfB1Mh OVTnnBasBlO3x2N8Rc7P GPmakgb4W5FsOxap dHI+WN71POQyIW12cGPc kLNnz8ixxOk6EtBeTECx QGV9kAmhAIlst4IqVPVr F87rgJNtz2E3RYTb bGx (more content not included)... [facility] Coding Summary HTMLBase 64 AvhosxfgWCo4bAt+PGhl YWQ+ZX8NLTMqB18ylHLu lO2dL8GYMSuQAczcGNEY JQmVRcIlyjEnLZ4lpEJg ZXJu IC8+JJ9gZYHrVruurGDm s8T6sKK2C72lin2eOQoi xTR0XZXcUkLbtqhip9er oTk1CNklLpxrUhNv GRKmhO23YOL6bD20Ac11 jMBhqOGde5zxlDn6ZvLg QIJpQCC0zJrwQRplv8Ap BVOmW18fhCCwc3V5 IGNvbGxhcHNlOyBlbXB0 zF8rMOdqitvub2zqayhj Eyc7em11kIDrr6Z0iHF4 S9NvxqF1PBOnaSJa HmgnzSSEkB5prortw1cd xgceLbDhURKqFXt8IJc1 CVEcvGtiZzDqMJ22IVG8 RLUbbfPeJ3VeBLKk qGzbPyF7c7N5Gf3AO9PX FwegT9PNETVDXLqfyOD+ HX05xf75N2JlMwthLws8 WNTfZZG0oIC9vN8f DTPsWHqrk8W2tYQ9D3Zv jbZjfl1od9otNWNuWQhg R19pvKBvb7W7YSRwkBZ8 TUQtnIrhTlXnaD36 Oyc+PPMyzCuuf7JkLxjt v0myr2axkGt2CsdoDHJb giGbdPcyEHD7e7CkAi5o XFRhoTP7hHX9gC6u XjUxKsJ9YBrhB183ZkIa wRUvWqcdA87eL9GfgQM+ MZVxMna3BHXbbXysHH9w Q1BrKNYnubgivNXa jCndXB0zQMDvtcxcJHHu vO2rRFCkE6b3MmRgMaV7 RDudN5GkKOPukobpWx32 zP3bOiVnVkV4WTuh F1OzggY4GUTsgQNqUMwl UBR9P96tj3Q5MIFrWOZb ZZX0iOB1fI1tgLlhzmce bGVmdDsgdmVydGlj TCvuYYfaZ425UINqrCgh PkNvZGluZyBEYXRlOiAg MDMvMTMvMjAyNDwvdGQ+ JBMoEPY2fIupPRAa hBRwCIctNi7seGsffYzs VD6gZYHjomxhVTXajM1c MHLcqZGmnGrhDE4wLDWx rgacv475OvGgLLT5 VPPyxYEjQ6VaiJ5kFrCf TKBmDOIwX4NwdECuFMon L632ZGicXoS8XKKiatMx O1BeQLJwtEzoVtT4 p3N3Xj3Ft9RtfhqzP8Eb cJAvOwYcVwuaXEo9G2Mg PjwvdHI+FZ60HEJoCX12 QWn8IMK2qXjjZUzu YFGaF3EiaZ8wFpAnFSWb ZGRkOyc+PHRhYmxlIHdp ZHRoPScxMDAlJyBzdHls EK8yGj4fMGHsHMHd vGfetEBvTjDmm7qcZEHp QDvpAY9zoEukS8DkbKJ2 GUZpp4d6Dm91U06uP6Oh dXA+MJMrbQI7hNG5 yU9uDlYlKsR7VIrnS659 CrQyrULlPywak2hvl7gq oJa4GtM1HRXlxqZzqGce UKR2n4IsIb14I29i IHdpZHRoPSIxNSUiIHZh kCrykd6uqU5lNq3+PGNv dPS8nRE0uI6jShQfZlP5 PHeuL526NuExlJEk Lxspv8kpa2crmWg0JcOo NRRnmoUgaFbxVOB1u0My Ar04J2KnpPgna7LlQqj7 cs45kHTzb1M9gPK7 I5SfCLNlfjdmuEBwqVrk MK1vCFAjvtayHBFcqT8g KSZqD8y6CfQgJkD4SLli D6UrwkK7IKPtwRBj WSYpyFRNyS2mjzpwv4fx kydzLcIuZTCzCYl8ODb9 UWNnrXboFjVkWTD7UeH9 ZLM6qFJrnZ3akWxc glxfzD7fFbm+VKU1lVZz dCDGZK4tYcolfBV+PHRk UNM7vUbyQJfsMQBhqA7v EKTvO1j5JxFoIpL4 XRhqC1GvyaP0XEVueSPc IMUmxEZPwP8urlwqy0mz umjwDiEsKZKqKVl7WKl0 LWFsaWduOiBsZWZ0 NdO8UKO9sFQvdY8lxJuq euudpL2lKvd+QmlydGgg VHR9SDs9H0HeJxt6PVLr kMdvPW0leLCcPEmr Ht9mzKaweTevDT2rOKCu kdyyq265DpWay1tyPPYw lTMwWOvtERU8H16ln5K1 UKGbCZScZVI4jAM8 bV2qmZuvqaaozOSqnKqj fcLehVuqWMsgZIcjB082 ZFTegFgoFpJiPPy7P2Rt Oli2GXHrbTxjLR4w vODvLJpxKq5anZycdRhc IV3sHJKzebslv697UnAw d7pgQKJjtRIbOIsjZMZ6 K66sl1D6THEkKJUi QHF1yWY6sF8qqWmodjbf bGVmdDsgdmVydGljYWwt CJeeW431BOTycThhPdSz rWa3V1XiNzg2ZOVa tAvyZX7alAMzUYzpCi8y fGzmcCjfMQ6gQQGltcba u829JnUgp7wuVHInnHVq MNmhQGD2Z73kx7U9 EJHnPPNbPXI1bAJ4wV7g bGlnbjogbGVmdDsgdmVy gLsoMDuzPZbuP566NYRu cDsnPlBhdGllbnQg NYjoSMp5J8UoFlieeQN+ PO10NVGzBH55wFAyeNZw n6trkXs5XrZhINBmQTC5 mPriANexp7QePIWg N88ysDAyd2M3WEPmmSkh qUMqGgRolOK7kV5sQZzv yrgfb2rmicyoUradv9lb rz67eU12X24wWBwt ZHRoPSIzMCUiIHZhbGln if6yvC1sJv6+PGNvbCB3 xPO4wA8jMVOlDeW3YLmw D979YkTsnDNnQezn j5mck1mfnQi7BfU3EIJz sbPnmVdtEYJ5h4QvMt97 V40eIXijUPZvTMNgOWZo LSOvyQejmf3juW4n Ii8+VTAfnMU7wGY5oT0i LyFoFmN6DCmtN981FvNs tMWiVlkeV38aY9HasIO+ YGJyMub7MLDirEmu MM0hjXQwLNwqYm5wRUE1 MyEhUmLaWFzxH3BjLNXh tokeujpejOK5QKKlMCEn aA25Iv0maVzgJSNf xQDHgJ9keadkm1fxsszy HhYgEFFjNXl4VPp9OYDj yRfpWmKbVPU9TsX5LWP2 xTPakU4iyKpbjviq kM5hF1NjNGQzmalkCy72 kU3dIyVaQyO7HDxiSzn+ R0LVFlzrYD6VL8gZMInc SzwvdGQ+PHRkIHN0 wPifYHlvJGMfzJ8cIBSz I0f9DuEzJmT7EHgrR7Py XNOdagnvPz36bB1jHtTz VoZ6TWjiE5YbelB4 TIDzoHAwHCxdRUF4B23m d0L7YLCmWNZzVML1fBY1 dH0etHzrtcabzIHgtFmj dmVydGljYWwtYWxp Z600YSNlwLxpHcEdSbU9 UfW0BeW4X0WdJrl2SNNq hLyrQS9wbAZdBHctDk5e zQctxBlkSW1sPBQt cedrZXHzdO9bGIClzYHx jXmeGU9uVFQjdggcv063 PmSfIPU9WEWevQJdH5Xi mZ0tIhFxAAYaVCXg M5PfeZVyBIuqZ584PNkq ScO3DCYbjmNwO9IgSTTf qQhgIfK3f6E7Jt51YMXZ ZWFyczwvdGQ+PHRk EIC2jSthTDtaOQNfvO1u IMRxZ9p8BjLcZmP8SVij M0ZyFGNmgypzZf20zH8u GvPbCdU3YSfvU7Vr odT1XTQcxXHjPLmvHYA1 D77ug3A7PHNxTXHkCXL1 hRN2aF2buOyjmqfuwWWb dDsgdmVydGljYWwt FRfyN709ALVmzZczCu9N LDN3N4MsSoy0MLVenPwt ZX4pgYOjFVoxGd7omVun xWjbLJ9nQIPrxmzc GWFqwR4oCWKlgQOzxDrc CR2jHYShrgquh994NeRs RTP0GPXuwFIrN9MnbB3d MlEdLCShJSWyS2Gs nPGtJDnvA238GPjqWjK0 VILpmsJeD8NrRBWmcPww IsF6c1J5Uv7OHGbmxME+ VR21er66N6NtNuha Nxe6BOXlPJN7uIN1lE2s VJXtYAsgt7N2xVZ2H6Se fhVuow7ng3ysEGJxFDxa P62wcYHcl7O3SRZh jAM6CZYytCxzRkUhrR39 Oyc+HFBikRgxm3IrIhxf z3hbj3lkuYm6NiCkHNFy dnQkwIbvISR7y8Fi Xi07J04qQZjzXGXcWAIw BJAkPNUnmLiilq5zlI3y Ii8+FZQpcBH3sAM4wQ9b VrUqLpV0QSipJ256 CpImnATeZlkid7lna6sj mKp8DtDzFKVbisFeqLfh FCQ5h3PnJz35W7JmiXov h0AcNdt9ob10kRDz z1A4aIJ1R4SqVLMadgxm hOHhjYeyAF6zAVHyogac XLCirZ2bXKHsD0g0BrPy CsU6RIufW0FgojT6 BAPuuAUlCNHpiGSPgA2q iltrp0mpapcuOiMdIOAp BRt1LMh0QLGemKqwReZx FNL0UgX7DQT9dEBq eD4akEzglhoezZ1wMeq+ OAq2c4mypCBgGE2mtUJ0 GR93UL62wQCux4C6hIA0 C3IcOJQyqcpynbup uDA2BXUuSXCdvZ36Sd1n mXloWx2wRHNeSLC8SLHx hEWeJ7RarD5tGjSgCMTf YPGhN6YirJNpDDtj L413MFszKoY1RMUxteRr P5RvZYHqaHlkUuF6g3B8 Eg8HQI21GR06XD03lXVs g7F1rKW2K8GsICVl rssbbqwxdMS6AVZdZHOz cS65Xn0lkRqkIe0mHFHj DBQ0JEYynQHnD5IhrT1h ErUnIPHqBNGjN8Zi iLVlZRkiK747MYqmCzR7 MPRxskAmL7UcMVVxlAor OvO0x5M0Ec5HEr61EJ14 YB46mKNtd6R6wBN3 Q6XcGTZubslgsduhgID8 RUGsGTJonH83Es9lfGad Gd7pRYBuCSC5PTNgtQZt F1LtfR9pYdOhIYRt DZTfO9DzpVClLPzkR746 VZjyPsL5IQDlczSoJ8Vj RHTulFapRzK3z1H7Ib9X QWejukt5Y2CkUqxp dHI+ZP15EEZsGT86aDKt qXOlf0lnjRg0EgLqWSGq WHL3nRiyUKyst2TrZTRh Y68qrJAsg7W3ZLOk bGx (more content not included)... [facility] Note[facility] 07-15-2023 Wound Care Note [id number]#1 .00[facility] Consent Formson 07-10-2023 Consent Forms [id number]#1 .00[facility] Outside Recordson 07-10-2023 Outside Records [id number]#1.00[facility] Coding Summaryon 07-09-2023 Coding Summary HTMLBase 64 RghoiqdqLUg2jNq+PGhl YWQ+EZ4LXRQpI21paMSy bG1qG6TTUXkEHashGORB IXhCMvFgviBdKR6mcHFa ZXJu IC8+YG5aYODpMqwevKEn d8L9vKL6A45jdx1fWHhg oUH2VBQrTjDgtvidd2ew bXl4TToiSneaWuQv VLSenX87QQX6yM89Ye37 eVEfgNAce7nyuWx6OlXt FBJiDTA7xHjoHChid4Tf JPFtQ79ujXDlr3P5 IGNvbGxhcHNlOyBlbXB0 sZ4dVRwwbdsri2bhlucf Fda0ya52fIIun9D9zEI7 Q6ViqaJ9IZByhOAu VspqxKGOyR9fpehyf7gb crviDvKyLTBlSIz6NOn3 XCJakDhnHpDlTV06RAH2 NZBuhrFrH8XyXCWv hSmuNuK8x2X5Jo2JZ6QD YzojB3RWZEUWCLxecSN+ ZR57hv50P4JaNxjbYan3 NDTfGVM9gGY7gQ2u CCDlUNdyu4Q1dPD3D5Un rpBidv3pb7liVUYlWHmo U25sbLMld3B1BWUryQU5 SSKbrYriJuUomE87 Oyc+UQNitUpvb0QcIeug r2mhx5eqdYq6SbrzXUIp txQbzPfhNDR7k5NuNy7j TDWioWX9wTF1kB5h BxZcCyR9RIkgD362MxUw lLOzWeqzI26yH9DdgAB+ IZNeRwn8BUTiuUeiNK1i X3BsZFQlanvacXJc xIspLJ6eKSAxjigvJUXb wG7hRFNhL8l2ShJdTmS9 NNzrS9LvMNRxsbquQk71 uJ9cCcDzAkR5ZVdp J3MjzzC1WXQubLVcPPik HNM8X53ge3C5NBMsSZJw IWA6wOZ3fL6sfGvaxjou bGVmdDsgdmVydGlj AMfsVTouY690PLNiuYqn PkNvZGluZyBEYXRlOiAg MDMvMDUvMjAyNDwvdGQ+ RIFhWPI1sAtnEBEv fIWjEIsiQl2ntRgsoAfl HY2qBZZhnwonSHEcoW2r WAEdaHUknBpnPI6xISZo mooal051ApRgEUT9 YFGqlJJaS4AtmS6zDsSi CGAiZONpF4AguNFsROac M762SGtdPyG3PLAvndZu C1AtXALroWamQzJ4 f6B2Fi7Gg1NplgciW3Jn yMAsIfTbHdewYSh0H6Ws PjwvdHI+GP63LYQxNP41 HSk7GAM2qJprQRwg HMTtV3BjiW4jBpJhKXCr ZGRkOyc+PHRhYmxlIHdp ZHRoPScxMDAlJyBzdHls LA8hFq8kEXUrYHTe bNanmGQdJjJfr3zcRHHb SOimLV0vzVxsR6AmjVM3 HATml9s8Gl88V47pD5Cd dXA+SRGieNT7hPL1 hC7tOsPlIqS3ZKfrU978 PsYalBGyPnxxp0hay6ha fNy3ZlF5KMJnxiVjnJxh PKQ0p0SbGt77V35p IHdpZHRoPSIxNSUiIHZh eTboqu0zyU3jAl1+PGNv pVC4mMB4cV7tMgQaFyC8 TWodM694VkHftUIl Evgwv4wbi7yfhPr9WcZg OCFkzmKxcTwzNVE9e0Yh Gm15T7JvkFmir9FoWvq2 xa39yLQar0U1zWT2 G3KxHAGwzdjmvVPxqUvk DG0lJPEhlmliUHObqJ7r FYKyN4k2IwUvSjG4UOrh R3ZefcQ8ZEQidOQv TLExdCWXiL0jbygrn2ad hrrdMgEsWOLiISf7XLz9 RYIrdPmdUeMqRBL7LlE6 ZJZ5yFNlyN3krLmu dwcjlV9uOjy+LGE7eFEm eKUKAX4fQkwrgFX+PHRk XPO9sTicHDibROQrhI6p SBTqX2z6VfYaGoM5 AYvkI0ZpjuH4ZWUgqUOt GCBymHFWqX4unjijg7ip takxGwZkCBSmQUc0PCt3 LWFsaWduOiBsZWZ0 SkH0GSR9pDZoiD6htQoa jvhldC3cWxj+QmlydGgg LLD9IJo9G8IjGjx1DQTw zQygMH6ufAJsTCgr Vl1imHmnjQwdML6iQTZp ohkzl761XiNyy1lyBNDl lLOaVKjsZPB5Z81lt7Q7 BQTcOUJnIMY9cRF9 hD2vqDczipzxyPSskJnh tiUovKbkOAovHVoqW409 WPAstMgxGlTbYBv0A6Uo Zxz0WAIwnAzlSR9g qAGcBGfzJm2qoKayrUub BS0sVDPnorifz956NlVk z7pkNBMvmHLyUImgHBC5 Z91ve8X9UFYhGNXp BNT6bNB8zT4sjRegbjkb bGVmdDsgdmVydGljYWwt IBncD732UHQuxWmoTlQo iBh0M0QeCdr0JYXh zCmqWV6pvREgOHkqHe2k sDhxtWftKP3cRYIdadpn a812ZeBui5sjQLGdpYGo LYueXNM7Q50ad2P8 UCDkBGZiRNX7sSZ0sE4d bGlnbjogbGVmdDsgdmVy dWtgICudMIyhJ044NICu cDsnPlBhdGllbnQg ZGtfGAq0Y9NgIhlssMY+ TU84CNZwUG20vNTjoLMz a6hijEk1TtXiCTGpESA8 qHjoPQnvy0AaVGNe N63iqLLol5P0NPHtcErh oFGvAxGvhGL1wB0fLKcw faixn0pyzuwwYofnf2oo dv59lP51M71tEXpi ZHRoPSIzMCUiIHZhbGln kz6inN7sRm0+PGNvbCB3 xSS8vO4rPFXvSpO3RHjz M275JbPjxZRuGzfn d7cgx5nauEi1UnP4YMQu fnIgjZctIHG0i3GgXp66 B69zAQcrFMMyAICxGIYp EBMgoEuqqe9aeN1s Ii8+SUBbmGK5vAP0zU2l SgAnJgQ4CTsdZ159AiXb wSEdMfzdQ37sR8RxwUO+ WYRtPbh1JXNwgMax GK9uoGVkEHihYq7jJWG4 UxHrLoWyUZybS6NvRKHz myseigmwaUA8DJXtNUKi tX14Bv3gdLshMYQs bNLUoA5lzlmjd6gwixqi XqOpEWJfDCi3ALx3LBWi gTvmEjQqYCZ4QaD4ZON4 kGRpaO7mbUjpaqqg gW0aL1KuEJFpmlrjXr51 aC2sWqZdMxJ8LXttUsg+ G7XIMetjHV8BE7bWMRoe SzwvdGQ+PHRkIHN0 aDsiSSanFIUrbZ1tETFx T1n0NfEgVkA1NRhrD1Sb WBBmlomdLi71cM3aGiIf CgV3NVrqX1KvwzC3 JIDydIYxODmiPOG5H35w e1H8CQXzWHVlLCR2zPS2 lE9lzPmohnuhmJWxkRxf dmVydGljYWwtYWxp C317WEUewBevSiWlBvT9 UzD7LbR2P6GlFty0FRWw bXyiFV0aoPDyUJbcNw7i oOgwnYkdBS4hRESi qkvkPIBajZ4kOMYwxRJk rLynRW4xTXFqqzrgf654 PjRcXCH6JCWnmYCkE1Su oW4mFmHtEIThWWGn R9GpjVTwVJujS172WKzs DcB6JQHrwbZlX1JsYENj kVppAnX7r9R6Aq64XZIU ZWFyczwvdGQ+PHRk BYT0oSzkGHmjFPKvuV4c NEJmC6e6HnOrTlB0YNvr E7ZxVSXoeeicIs19pK7u XnKbHoW8FZrxO0Tu kcV1XQMzsOKfSUluXGD5 T39sy5U3VNUeBGYoGCI5 fGG1gJ0ipQfadoxljEEh dDsgdmVydGljYWwt MRizT705OSRevEvlKu9Q ULZ4M4JcFax3WKAalWmi HY4gkVVwFXmnGw8zwUao oXglKA4uSCQlmmbw FKIzkK2uBOCnzRYabWpy KX5vYNDhpcwqx808MeFy LFO4KKRodOIdN0SesV1u WuXmPWOtBYOdO9Sq bVCjTGwlH870HBzhMiI9 ZUWbcxZjF0BaCRNsaUwu JfO2p6S5Uy0LUNhubDQ+ HX74xr72C8LiDdxt Diy4EQUsSDU4xPD7kV4m ZJHuIHrdv1A1vBT3P0Pk vrDffo9rf3fiZPHaLJnq Y85vwPMoe7U0QRHo wHG0AMNduDjbLhFmwB21 Oyc+DLCrwRwbn2GqPtfd s2ifx5jezLm7QrMjPAEz nyUilDinJZB4b4Ho My18K24wPAicNVQqKYSq KVVkWVRacRnupe0lfM7k Ii8+NMDnnNE7qTO6uF9v FvWvAjE7SRmkY663 CoFgsEZdZluvy3dqi1ft hQo0BzAwQTMvjjAwpIhg JYK0l8KhHy45B7RmpGct y6OfZbi3mp79qCMy x8M2gQZ7F6QaXPUzrbvl oPZmpHlyEN8xVNXawtgr WBVvnP0tXTGfS7n7VzXp WiE1YDclX1VpyzX5 EDWvoQMqBWXtiUTGzX7s ncvbq0ornmtlMoJxFVRp DCc5ZHj8BAYcqSzhAiCn ZIH0QoH2KSG2kQJc iQ8wjGlxeijlzN3fIxf+ BYp6z5cdxPTlMT2lqDN5 HN38TH76hADma2D5hZE4 E1SmWDYwucepobfx hGN8DJTrMPJxoO55Pd8o yHyoWm5uROSnUMS0FKTw uPVwJ1JtoH6jTmDfICJy GOPlJ0AvrXBvVRys V168IBtvHpY3ANOibxLq S8BeQSFxwHlmGeS7c0U5 Dx5HBL14OX80KB80wEDb k4X3iWM7P8PyURFj opfvrtkslIO6QUQwZHFs vG31Lh4vtAqsRr7vQMVa PHV3VFCkwCLjS5GxlW6e UlGkCNAlZMCpF9Pp jJDfKOydM824VOjbWmY3 IUXttdDdP0CsIKCwjGii OvA5g7T7Wd5VHv82GQ11 NI69rVBjk6Y3pME7 Z9PeKBWvqemcvglsvXN1 CVGqTXJevF06Sk3etYeo Qn3tEAYjFYX2OGQsmVBe H6ImeQ2rVtVvNKYn ALPjV6SvpHKaXEijG033 SMzuJiF5GYZzuzClL7Af RAXerXrdCqO6v8E2Vp8H MEcjmla1D7ThVhjb dHI+MP16YIJhMX56rMCh cLWyt9xnhOf7OpBkJCGv GJZ6sBceRJcrh4DeZTTi A42jvSQzw4Z5TTGf bGx (more content not included)... [facility] Wound Care Noteon 07-08-2023 Wound Care Note [id number]# 1.00[facility] Wound Culture[facility] 07-03-2023 Wound Culture rt calf, KD, 07-01-23, 15:40 Heavy growth of Staphylococcus aureus Rare White Blood Cells seen No organisms seen. ORGANISM SA ----- SUSCEPTIBILITY ---- ORGANISM ID: 1 ANTIBIOTIC INTERPRETATION LISANDRO STATUS ORGANISM SASA Amox/Cla S <=4/2 Verified Amp Melvin >8 Verified Amp/Sul S <=8/4 Verified Ceftri S <=8 Verified Cipro S <=1 Verified Clinda S <=0.5 Verified Dapto S 1 Verified Eryth S <=0.5 Verified Gent S <=4 Verified Levo S <=1 Verified Linez S 4 Verified Nitro <=32 Verified Ox S 1 Verified Pen Melvin >8 Verified Rif S <=1 Verified Tetra R >8 Verified Tri/Sulf S <=0.5/9.5 Verified Vanc S 2 Verified Normal [facility] Comment on above: Performed By: #### [id number] ####[facility] (DEFAULT)[address] [place] [address] Ambulatory Patient Summaryon 06-26-2023 Ambulatory Patient Summary [address], [address] - Visit Summary For YRN RICARDO Age: 63 years Sex: MALE : 1960 Address: [address] [place], [address] Home: Work: -- Primary Care Provider: LESLY MELCHOR MD Race: White Ethnicity: Not or Language: Mexican Health Plan: 1?[facility], 2?MEDICAID [facility], 3?MEDICAID [facility] Reason for Visit: Three month follow up for med refills Prescription Information: If you have been given a prescription for narcotics, seek immediate medical attention if you have any difficulty breathing or any sudden status changes such as confusion and sleepiness. If you or anyone you know is experiencing suicidal thoughts, mental health, alcohol and/or drug addiction problems; contact the [facility] 26/11 Crisis Hotline -Text 4HHAS to [phone]. Follow-Up Information With: Address: When: LESLY MELCHOR MD [facility] [address] [place] [address]/ [address] [place] [address] [id number] In 3 months Future Appointments [facility] Appt. Date: 09/25/2023 1:00 PM Scheduled Provider: Lesly Melchor MD [address] [place] [address] [place], [address] Future Orders No future orders Additional Goals and Instructions: Vitals and Measurements this Visit (last charted value for your 06/26/2023 visit) Vital Signs This Visit Peripheral Pulse Rate: 78 bpm Systolic Blood Pressure: 126 mmHg Diastolic Blood Pressure: 74 mmHg SpO2: 97 % Measurements This Visit Height/Length Measured: 190 cm Height/Length Measured (inches): 74.8 in Weight Measured: 181 kg Weight Measured (lbs): 399.036 lb Weight Dosin.000 kg Body Mass Index: 50.14 kg/m2 [place] Body Weight Calculated: 84.047 kg BSA Measured: 3.09 m2 Diagnoses This Visit Chronic acquired lymphedema (I89.0) Non-pressure chronic ulcer of unspecified part of unspecified lower leg with unspecified severity (L97.909) Osteoarthritis of knee (M17.10) Venous stasis ulcer (I83.009) Laboratory or Other Results This Visit (last charted value for your 06/26/2023 visit) No Laboratory or Other Results This Visit Medications and Immunizations Administered During This Visit No medication administered during this visit All Known Current Prescriptions and Reported Medications New Prescriptions this Visit No new prescriptions for this visit Prescriptions Albuterol (Eqv-ProAir HFA) 90 mcg/inh inhalation aerosol (albuterol) 10 refills authorized Instructions: INHALE 2 PUFFS BY MOUTH EVERY 4 HOURS NEEDED albuterol 2.5 mg/3 mL (0.083%) inhalation solution (albuterol) Take 3 Milliliter(2.5 Milligram) Nebulized inhalation every 6 hours (scheduled) as needed for wheezing, 6 refills authorized calcium-vitamin D 500 mg-200 intl units oral tablet (calcium-vitamin D) Take 1 tab(s) Oral (given by mouth) 2 times a day (scheduled), 0 refills authorized Instructions: MAGRU cetirizine 10 mg oral tablet (cetirizine) Take 1 tab(s)(10 Milligram) Oral (given by mouth) every day, 3 refills authorized ergocalciferol 1.25 mg (50,000 intl units) oral capsule (ergocalciferol) Take 1 cap(s)(50,000 International_Unit) Oral (given by mouth) every 7 days for 5 week(s), 0 refills authorized Instructions: MAGRU Flovent HFA 110 mcg/inh inhalation aerosol (fluticasone) 10 refills authorized Instructions: INHALE 2 PUFFS BY MOUTH TWICE DAILY *RINSE MOUTH AFTER USE* levothyroxine 150 mcg (0.15 mg) oral tablet (levothyroxine) 1 refills authorized Instructions: TAKE 1 TABLET BY MOUTH ONCE DAILY nebulizer machine ([facility]) 0 refills authorized Instructions: one machine to use with nebules oxybutynin 10 mg/24 hr oral tablet, extended release (oxyBUTYnin) Take 1 tab(s) Oral (given by mouth) every day, Percocet 5 mg-325 mg oral tablet (acetaminophen-oxyco done) Take 1 tab(s) Oral (given by mouth) every 6 hours as needed for pain, 0 refills authorized Instructions: MUST LAST 30 DAYS Xarelto 20 mg oral tablet (rivaroxaban) Instructions: TAKE 1 TABLET BY MOUTH IN THE EVENING WITH MEALS Home Medications CeleXA 20 mg oral tablet (citalopram) Take 1 tab(s)(20 Milligram) Oral (given by mouth) every day LORazepam 0.5 mg oral tablet (LORazepam) One-A-Day 50+ oral tablet (multivitamin) Take 1 tab(s) Oral (given by mouth) every day traZODone 100 mg oral tablet (traZODone) Take 1 tab(s)(100 Milligram) Oral (given by mouth) once a day (at bedtime) Tylenol Caplet 325 mg oral tablet (acetaminophen) Take 2 tab(s)(650 Milligram) Oral (given by mouth) every 4 hours (scheduled) headache zolpidem 5 mg oral tablet (zolpidem) Lymphedema Lymphedema is swelling that is caused (more content not included)... Normal [facility] Patient Handouton 06-26-2023 Patient Handout Infectious Disease Lymphedema Lymphedema is swelling that is caused by the abnormal collection of lymph in the tissues under the skin. Lymph is excess fluid from the tissues in your body that is removed through the lymphatic system. This system is part of your body's defense system (immune system) and includes lymph nodes and lymph vessels. The lymph vessels collect and carry the excess fluid, fats, proteins, and waste from the tissues of the body to the bloodstream. This system also works to clean and remove bacteria and waste products from the body. Lymphedema occurs when the lymphatic system is blocked. When the lymph vessels or lymph nodes are blocked or damaged, lymph does not drain properly. This causes an abnormal buildup of lymph, which leads to swelling in the affected area. This may include the trunk area, or an arm or leg. Lymphedema cannot be cured by medicines, but various methods can be used to help reduce the swelling. What are the causes? The cause of this condition depends on the type of lymphedema that you have. ? Primary lymphedema is caused by the absence of lymph vessels or having abnormal lymph vessels at . ? Secondary lymphedema occurs when lymph vessels are blocked or damaged. Secondary lymphedema is more common. Common causes of lymph vessel blockage include: ? Skin infection, such as cellulitis. ? Infection by parasites (filariasis). ? Injury. ? Radiation therapy. ? Cancer. ? Formation of scar tissue. ? Surgery. What are the signs or symptoms? Symptoms of this condition include: ? Swelling of the arm or leg. ? A heavy or tight feeling in the arm or leg. ? Swelling of the feet, toes, or fingers. Shoes or rings may fit more tightly than before. ? Redness of the skin over the affected area. ? Limited movement of the affected limb. ? Sensitivity to touch or discomfort in the affected limb. How is this diagnosed? This condition may be diagnosed based on: ? Your symptoms and medical history. ? A physical exam. ? Bioimpedance spectroscopy. In this test, painless electrical currents are used to measure fluid levels in your body. ? Imaging tests, such as: ? MRI. ? CT scan. ? Duplex ultrasound. This test uses sound waves to produce images of the vessels and the blood flow on a screen. ? Lymphoscintigraphy. In this test, a low dose of a radioactive substance is injected to trace the flow of lymph through your lymph vessels. ? Lymphangiography. In this test, a contrast dye is injected into the lymph vessel to help show blockages. How is this treated? If an underlying condition is causing the lymphedema, that condition will be treated. For example, antibiotic medicines may be used to treat an infection. Treatment for this condition will depend on the cause of your lymphedema. Treatment may include: ? Complete decongestive therapy (CDT). This is done by a certified lymphedema therapist to reduce fluid congestion. This therapy includes: ? Skin care. ? Compression wrapping of the affected area. ? Manual lymph drainage. This is a special massage technique that promotes lymph drainage out of a limb. ? Specific exercises. Certain exercises can help fluid move out of the affected limb. ? Compression. Various methods may be used to apply pressure to the affected limb to reduce the swelling. They include: ? Wearing compression stockings or sleeves on the affected limb. ? Wrapping the affected limb with special bandages. ? Surgery. This is usually done for severe cases only. For example, surgery may be done if you have trouble moving the limb or if the swelling does not get better with other treatments. Follow these instructions at home: Self-care ? The affected area is more likely to become injured or infected. Take these steps to help prevent infection: ? Keep the affected area clean and dry. ? Use approved creams or lotions to keep the skin moisturized. ? Protect your skin from cuts: ? Use gloves while cooking or gardening. ? Do not walk barefoot. ? If you shave the affected area, use an electric razor. ? Do not wear tight clothes, shoes, or jewelry. ? Eat a healthy diet that includes a lot of fruits and vegetables. Activity ? Do exercises as told by your health care provider. ? Do not sit with your legs crossed. ? When possible, keep the affected limb raised (elevated) above the level of your heart. ? Avoid carrying things with an arm that is affected by lymphedema. General instructions ? Wear compression stockings or sleeves as told by your health care provider. ? Note any changes in size of the affected limb. You may be instructed to take regular measurements and keep track of them. ? Take [id number] and prescription medicines only as told by your health care provider. ? If you were prescribed an antibiotic medicine, take or apply it as told by your health care provider. Do not stop (more content not included)... [facility] 05-15-2023 Outside Records [id number] #1.00OTGTIFF [facility] Device InterrogationOrdered By: Rosalind Murrieta on 05-14-2023 [facility] Radiology Study observation (narrative) [facility] Ambulatory Patient Summaryon 03-26-2023 Ambulatory Patient Summary [address], [address] - Visit Summary For YRN RICARDO Age: 62 years Sex: MALE : 1960 Address: [address] [place] [address] [address] [place], [address] Home: Work: -- Primary Care Provider: KAREN ZAPATA, LESLY To Race: White Ethnicity: Not or Language: Mexican Health Plan: 1?[facility], 2?[facility], 3?[facility] Reason for Visit: Three month follow up for weight loss and back pain Prescription Information: If you have been given a prescription for narcotics, seek immediate medical attention if you have any difficulty breathing or any sudden status changes such as confusion and sleepiness. If you or anyone you know is experiencing suicidal thoughts, mental health, alcohol and/or drug addiction problems; contact the [facility] 26/11 Crisis Hotline -Text 4HOPE to 315599. Follow-Up Information With: Address: When: KAREN ZAPATA, LESLY To [facility] [address] [place] [address]/[address] [place], [place] [id number] In 3 months Future Appointments [facility] Appt. Date: 06/26/2023 9:30 AM Scheduled Provider: Lesly Melchor MD [address] [place] [address] [place], [address] Future Orders No future orders Additional Goals and Instructions: Vitals and Measurements this Visit (last charted value for your 03/26/2023 visit) Vital Signs This Visit Peripheral Pulse Rate: 78 bpm Pulse Site: Pulse Oximetry Systolic Blood Pressure: 124 mmHg Diastolic Blood Pressure: 74 mmHg Cuff Location: Left arm SpO2: 97 % Measurements This Visit Height/Length Measured: 190 cm Height/Length Measured (inches): 74.8 in Weight Measured: 170 kg Weight Measured (lbs): 374.785 lb BSA: 3 m2 Body Mass Index: 47.09 kg/m2 [place] Body Weight Calculated: 84.047 kg BSA Measured: 3 m2 Diagnoses This Visit Chronic acquired lymphedema (I89.0) Morbid obesity (E66.01) Osteoarthritis of knee (M17.10) Laboratory or Other Results This Visit (last charted value for your 03/26/2023 visit) No Laboratory or Other Results This Visit Medications and Immunizations Administered During This Visit No medication administered during this visit All Known Current Prescriptions and Reported Medications New Prescriptions this Visit Percocet 5 mg-325 mg oral tablet (acetaminophen-oxyco done) Take 1 tab(s) Oral every 6 hours as needed for pain, 0 refills authorized Instructions: MUST LAST 30 DAYS Prescriptions Albuterol (Eqv-ProAir HFA) 90 mcg/inh inhalation aerosol (albuterol) 10 refills authorized Instructions: INHALE 2 PUFFS BY MOUTH EVERY 4 HOURS NEEDED albuterol 2.5 mg/3 mL (0.083%) inhalation solution (albuterol) Take 3 Milliliter(2.5 Milligram) Nebulized inhalation Every 6 hours as needed for wheezing, 6 refills authorized Ambien 10 mg oral tablet (zolpidem) Take 1 tab(s)(10 Milligram) Oral once a day (at bedtime) for sleep, 0 refills authorized calcium-vitamin D 500 mg-200 intl units oral tablet (calcium-vitamin D) Take 1 tab(s) Oral 2 times a day, 0 refills authorized Instructions: ANA MARÍA cetirizine 10 mg oral tablet (cetirizine) Take 1 tab(s)(10 Milligram) Oral every day, 3 refills authorized ergocalciferol 1.25 mg (50,000 intl units) oral capsule (ergocalciferol) Take 1 cap(s)(50,000 International_Unit) Oral every 7 days for 5 week(s), 0 refills authorized Instructions: ANA MARÍA Flovent HFA 110 mcg/inh inhalation aerosol (fluticasone) 10 refills authorized Instructions: INHALE 2 PUFFS BY MOUTH TWICE DAILY *RINSE MOUTH AFTER USE* levothyroxine 150 mcg (0.15 mg) oral tablet (levothyroxine) Instructions: TAKE 1 TABLET BY MOUTH ONCE DAILY LORazepam 1 mg oral tablet (LORazepam) Take 1 tab(s)(1 Milligram) Oral every day anxiety, 0 refills authorized nebulizer machine ([facility]) 0 refills authorized Instructions: one machine to use with nebules oxybutynin 10 mg/24 hr oral tablet, extended release (oxybutynin) Take 1 tab(s)(10 Milligram) Oral every day, 11 refills authorized phentermine 37.5 mg oral capsule (phentermine) Take 1 cap(s)(37.5 Milligram) Oral every day, 0 refills authorized Instructions: To last 30 days before breakfast Xarelto 20 mg oral tablet (rivaroxaban) Instructions: TAKE 1 TABLET BY MOUTH IN THE EVENING WITH MEALS Home Medications CeleXA 20 mg oral tablet (citalopram) Take 1 tab(s)(20 Milligram) Oral every day One-A-Day 50+ oral tablet (multivitamin) Take 1 tab(s) Oral every day traZODone 100 mg oral tablet (traZODone) Take 1 tab(s)(100 Milligram) Oral once a day (at bedtime) Tylenol Caplet 325 mg oral tablet (acetaminophen) Take 2 tab(s)(650 Milligram) Oral Every 4 hours headache BMI for Adults What is BMI? Body mas (more content not included)... Normal [facility] Patient Handouton 03-26-2023 Patient Handout Nutrition BMI for Adults What is BMI? Body mass index (BMI) is a number that is calculated from a person's weight and height. BMI can help estimate how much of a person's weight is composed of fat. BMI does not measure body fat directly. Rather, it is an alternative to procedures that directly measure body fat, which can be difficult and expensive. BMI can help identify people who may be at higher risk for certain medical problems. What are BMI measurements used for? BMI is used as a screening tool to identify possible weight problems. It helps determine whether a person is obese, overweight, a healthy weight, or underweight. BMI is useful for: ? Identifying a weight problem that may be related to a medical condition or may increase the risk for medical problems. ? Promoting changes, such as changes in diet and exercise, to help reach a healthy weight. BMI screening can be repeated to see if these changes are working. How is BMI calculated? BMI involves measuring your weight in relation to your height. Both height and weight are measured, and the BMI is calculated from those numbers. This can be done either in [place] or metric measurements. Note that charts and online BMI calculators are available to help you find your BMI quickly and easily without having to do these calculations yourself. To calculate your BMI in [place] measurements: 1. Measure your weight in pounds (lb). 2. Multiply the number of pounds by 703. ? For example, for a person who weighs 180 lb, multiply that number by 703, which equals 126,540. 3. Measure your height in inches. Then multiply that number by itself to get a measurement called inches squared. ? For example, for a person who is 70 inches tall, the inches squared measurement is 70 inches x 70 inches, which equals 4,900 inches squared. 4. Divide the total from step 2 (number of lb x 703) by the total from step 3 (inches squared): 126,540 ? 4,900 = 25.8. This is your BMI. To calculate your BMI in metric measurements: 1. Measure your weight in kilograms (kg). 2. Measure your height in meters (m). Then multiply that number by itself to get a measurement called meters squared. ? For example, for a person who is 1.75 m tall, the meters squared measurement is 1.75 m x 1.75 m, which is equal to 3.1 meters squared. 3. Divide the number of kilograms (your weight) by the meters squared number. In this example: 70 ? 3.1 = 22.6. This is your BMI. What do the results mean? BMI charts are used to identify whether you are underweight, normal weight, overweight, or obese. The following guidelines will be used: ? Underweight: BMI less than 18.5. ? Normal weight: BMI between 18.5 and 24.9. ? Overweight: BMI between 25 and 29.9. ? Obese: BMI of 30 or above. Keep these notes in mind: ? Weight includes both fat and muscle, so someone with a muscular build, such as an athlete, may have a BMI that is higher than 24.9. In cases like these, BMI is not an accurate measure of body fat. ? To determine if excess body fat is the cause of a BMI of 25 or higher, further assessments may need to be done by a health care provider. ? BMI is usually interpreted in the same way for men and women. Where to find more information For more information about BMI, including tools to quickly calculate your BMI, go to these websites: ? Centers for Disease Control and Prevention: www.cdc.gov ? [place] Heart Association: www.heart.org ? National Heart, Lung, and Blood [place]: www.nhlbi.nih.gov Summary ? Body mass index (BMI) is a number that is calculated from a person's weight and height. ? BMI may help estimate how much of a person's weight is composed of fat. BMI can help identify those who may be at higher risk for certain medical problems. ? BMI can be measured using [place] measurements or metric measurements. ? BMI charts are used to identify whether you are underweight, normal weight, overweight, or obese. This information is not intended to replace advice given to you by your health care provider. Make sure you discuss any questions you have with your health care provider. Document Revised: 01/13/2020 Document Reviewed: 11/20/2019 [employer] Patient Education ? 2022 [employer]ial[employer]ive. [facility] Outside Record[facility] 03-25-2023 Outside Records [id number] [facility] Outside Records [id number] [facility] Outside Records [id number] #1.[facility] 02-11-2023 Outside Records [id number]# 1.00[facility] Ambulatory Patient Summaryon 12-21-2022 Ambulatory Patient Summary [address], [address] - Visit Summary For YRN RICARDO Age: 62 years Sex: MALE : 1960 Address: [address] [place] [address], [facility] Home: Work: -- Primary Care Provider: LESLY MELCHOR MD Race: White Ethnicity: Not or Language: Mexican Health Plan: 1?[facility], 2?[facility], 3?[facility] Reason for Visit: 3 mon f/u Prescription Information: If you have been given a prescription for narcotics, seek immediate medical attention if you have any difficulty breathing or any sudden status changes such as confusion and sleepiness. If you or anyone you know is experiencing suicidal thoughts, mental health, alcohol and/or drug addiction problems; contact the [facility] 26/11 Crisis Hotline -Text 4HQTW to 213763. Follow-Up Information With: Address: When: KAREN ZAPATA, LESLY To [facility] [address] [place] [address]/ [address] [place] [address] In 3 months Future Appointments [facility] Appt. Date: 03/26/2023 10:00 AM Scheduled Provider: Lesly Melchor MD [address] [place] [address] [place], [address] Future Orders No future orders Additional Goals and Instructions: Vitals and Measurements this Visit (last charted value for your 12/21/2022 visit) Vital Signs This Visit Peripheral Pulse Rate: 62 bpm Pulse Site: Pulse Oximetry Systolic Blood Pressure: 108 mmHg Diastolic Blood Pressure: 72 mmHg Cuff Location: Left arm SpO2: 98 % Measurements This Visit Height/Length Measured: 190 cm Height/Length Measured (inches): 74.8 in Weight Measured: 168.69 kg Weight Measured (lbs): 371.897 lb Body Mass Index: 46.73 kg/m2 [place] Body Weight Calculated: 84.047 kg BSA Measured: 2.98 m2 Diagnoses This Visit Obesity (E66.9) Osteoarthritis of knee (M17.10) Laboratory or Other Results This Visit (last charted value for your 12/21/2022 visit) No Laboratory or Other Results This Visit Medications and Immunizations Administered During This Visit No medication administered during this visit All Known Current Prescriptions and Reported Medications New Prescriptions this Visit albuterol 2.5 mg/3 mL (0.083%) inhalation solution (albuterol) Take 3 Milliliter(2.5 Milligram) Nebulized inhalation Every 6 hours as needed for wheezing, 6 refills authorized phentermine 37.5 mg oral capsule (phentermine) Take 1 cap(s)(37.5 Milligram) Oral every day, 0 refills authorized Instructions: To last 30 days before breakfast Prescriptions Albuterol (Eqv-ProAir HFA) 90 mcg/inh inhalation aerosol (albuterol) Instructions: INHALE 2 PUFFS BY MOUTH EVERY 4 HOURS NEEDED Ambien 10 mg oral tablet (zolpidem) Take 1 tab(s)(10 Milligram) Oral once a day (at bedtime) for sleep, 0 refills authorized calcium-vitamin D 500 mg-200 intl units oral tablet (calcium-vitamin D) Take 1 tab(s) Oral 2 times a day, 0 refills authorized Instructions: ANA MARÍA cetirizine 10 mg oral tablet (cetirizine) Instructions: TAKE 1 TABLET BY MOUTH ONCE DAILY ergocalciferol 1.25 mg (50,000 intl units) oral capsule (ergocalciferol) Take 1 cap(s)(50,000 International_Unit) Oral every 7 days for 5 week(s), 0 refills authorized Instructions: ANA MARÍA Flovent HFA 110 mcg/inh inhalation aerosol (fluticasone) 10 refills authorized Instructions: INHALE 2 PUFFS BY MOUTH TWICE DAILY *RINSE MOUTH AFTER USE* levothyroxine 150 mcg (0.15 mg) oral tablet (levothyroxine) Instructions: TAKE 1 TABLET BY MOUTH ONCE DAILY LORazepam 1 mg oral tablet (LORazepam) Take 1 tab(s)(1 Milligram) Oral every day anxiety, 0 refills authorized nebulizer machine ([facility]) 0 refills authorized Instructions: one machine to use with nebules Outpatient Labs ([facility] Pres[facility]) 0 refills authorized Instructions: Wound clinic. Right leg wound Evaluate and treat oxybutynin 10 mg/24 hr oral tablet, extended release (oxybutynin) Take 1 tab(s)(10 Milligram) Oral every day, 11 refills authorized Percocet 5 mg-325 mg oral tablet (acetaminophen-oxyco done) Take 1 tab(s) Oral every 6 hours as needed for pain, 0 refills authorized Instructions: MUST LAST 30 DAYS Xarelto 20 mg oral tablet (rivaroxaban) Instructions: TAKE 1 TABLET BY MOUTH EACH EVENING WITH MEAL. Home Medications CeleXA 20 mg oral tablet (citalopram) Take 1 tab(s)(20 Milligram) Oral every day One-A-Day 50+ oral tablet (multivitamin) Take 1 tab(s) Oral every day traZODone 100 mg oral tablet (traZODone) Take 1 tab(s)(100 Milligram) Oral once a day (at bedtime) Tylenol Caplet 325 mg oral tablet (acetaminophen) Take 2 tab(s)(650 Milligram) Oral Every 4 hours headache Osteoarthritis (Inserted Image. Unable to displa (more content not included)... Normal [facility] Patient Handouton 12-21-2022 Patient Handout Orthopedics Osteoarthritis Osteoarthritis is a type of arthritis. It refers to joint pain or joint disease. Osteoarthritis affects tissue that covers the ends of bones in joints (cartilage). Cartilage acts as a cushion between the bones and helps them move smoothly. Osteoarthritis occurs when cartilage in the joints gets worn down. Osteoarthritis is sometimes called wear and tear arthritis. Osteoarthritis is the most common form of arthritis. It often occurs in older people. It is a condition that gets worse over time. The joints most often affected by this condition are in the fingers, toes, hips, knees, and spine, including the neck and lower back. What are the causes? This condition is caused by the wearing down of cartilage that covers the ends of bones. What increases the risk? The following factors may make you more likely to develop this condition: ? Being age 50 or older. ? Obesity. ? Overuse of joints. ? Past injury of a joint. ? Past surgery on a joint. ? Family history of osteoarthritis. What are the signs or symptoms? The main symptoms of this condition are pain, swelling, and stiffness in the joint. Other symptoms may include: ? An enlarged joint. ? More pain and further damage caused by small pieces of bone or cartilage that break off and float inside of the joint. ? Small deposits of bone (osteophytes) that grow on the edges of the joint. ? A grating or scraping feeling inside the joint when you move it. ? Popping or creaking sounds when you move. ? Difficulty walking or exercising. ? An inability to medical specialist items, twist your hand(s), or control the movements of your hands and fingers. How is this diagnosed? This condition may be diagnosed based on: ? Your medical history. ? A physical exam. ? Your symptoms. ? X-rays of the affected joint(s). ? Blood tests to rule out other types of arthritis. How is this treated? There is no cure for this condition, but treatment can help control pain and improve joint function. Treatment may include a combination of therapies, such as: ? Pain relief techniques, such as: ? Applying heat and cold to the joint. ? Massage. ? A form of talk therapy called cognitive behavioral therapy (CBT). This therapy helps you set goals and follow up on the changes that you make. ? Medicines for pain and inflammation. The medicines can be taken by mouth or applied to the skin. They include: ? NSAIDs, such as ibuprofen. ? Prescription medicines. ? Strong anti-inflammatory medicines (corticosteroids). ? Certain nutritional supplements. ? A prescribed exercise program. You may work with a physical therapist. ? Assistive devices, such as a brace, wrap, splint, specialized glove, or cane. ? A weight control plan. ? Surgery, such as: ? An osteotomy. This is done to reposition the bones and relieve pain or to remove loose pieces of bone and cartilage. ? Joint replacement surgery. You may need this surgery if you have advanced osteoarthritis. Follow these instructions at home: Activity ? Rest your affected joints as told by your health care provider. ? Exercise as told by your health care provider. He or she may recommend specific types of exercise, such as: ? Strengthening exercises. These are done to strengthen the muscles that support joints affected by arthritis. ? Aerobic activities. These are exercises, such as brisk walking or water aerobics, that increase your heart rate. ? Yrdvu-jc-ljpzrx activities. These help your joints move more easily. ? Balance and agility exercises. Managing pain, stiffness, and swelling ? If directed, apply heat to the affected area as often as told by your health care provider. Use the heat source that your health care provider recommends, such as a moist heat pack or a heating pad. ? If you have a removable assistive device, remove it as told by your health care provider. ? Place a towel between your skin and the heat source. If your health care provider tells you to keep the assistive device on while you apply heat, place a towel between the assistive device and the heat source. ? Leave the heat on for 20?30 minutes. ? Remove the heat if your skin turns bright red. This is especially important if you are unable to feel pain, heat, or cold. You may have a greater risk of getting burned. ? If directed, put ice on the affected area. To do this: ? If you have a removable assistive device, remove it as told by your health care provider. ? Put ice in a plastic bag. ? Place a towel between your skin and the bag. If your health care provider tells you to keep the assistive device on during icing, place a towel between the assistive device and the bag. ? Leave the ice on for 20 minutes, 2?3 times a day. ? Move your fingers or toes often to reduce stiffness and swelling. ? Raise (elevate) the injured area above the (more content not included)... [facility] Coding Summaryon 12-18-2022 Coding Summary HTMLBase 64 CnfdmtyyPYw7jIp+PGhl YWQ+NA4HNKVrM76qrUYb yI7xD8RFLWsTCvweJNRG UCmYQsYqvzQvTU2ovTZl ZXJu IC8+UQ1jRQNsFzeekIIw b2I2jKK4K50yay7cZWxp iQI1NGXtMbTajvmel2cl jSk2VZusCxpnJmUx NPElyC33CDF9xM49Nz19 vEBunHFsh6yvcXn5WwRj CNHiNFW8lPbgGHrmx1Ar ZLDbV86dxRCcd0R2 IGNvbGxhcHNlOyBlbXB0 iI9rITdkkkekx4ujblpd Hcv4cs83gKWsq6U0bXT7 Z3FwfrC1OGTqsQRi GekpbYREcH9mpohtw0ej witdIgUqMLTbRPc9KUb9 XENscCggJeKrAD91GWM6 ATMdjgFdJ8VoCPGd yQqyHpS1y1N1Nr4HJ0VZ InbcG3BZAFPNLSiyiCH+ GS45tt61T1GxAgueKip0 WTZrNUI2tPX3iF3o NHMsZQzgs8H0rUZ7D0Ga snHpmz6cm7vqPDNtXHmc K27mgNUjl6X4GNCagRP0 VFJfuWrmFdIvfZ09 Oyc+PCJvqVyhr1XhZcfs c6tau0sxsMo5FrgiLXUz yqHocSusTDJ7u9NhOs0h IYWzhPB4vRN0kW4z ZkPyTgK6XQqmL666HpSl xKPeKngnM87vU5YypLR+ EUGmGzj7NAFhzEqqLR8l R8SqCRYntffacBWi yLkaJF9cRUYyvhlgEUYz qQ2mBFCpA3e2CuCuDbP1 MOovL7RjNVUtsnpvNd52 tN4vPvCvBcU3LXzl S6LlmbA3DLEnhTLdQWef ARS1I41sf7N0FDAmZPHq FRS8oWM3fY7raCcxmtll bGVmdDsgdmVydGlj ZZsnDBmhN568EXMynPdx PkNvZGluZyBEYXRlOiAg MDgvMTUvMjAyMzwvdGQ+ HBSfDOV9uAfdYBJi aJHnSTbjCx5hhPdyhLlp VK1wQXVsisxpKQFwaD4v IGZbaAZtaBgkZF0vAJJf pkssb371CeAiFGQ9 VSXxeMHtD4CoeQ1iPqHn OYKfLJSiB2VzfVCaCDkc A163CSsgZnP9IUVediSp F6UoJCUtzKnrSuY2 g8Z2Le1Oq1EyyzokZ1Im uLMdZbXxIyueOXa5Q2Ly PjwvdHI+OY82UGYnEG39 KOu5VKY6nHwqDVsl SOVhY6YvvR9lKgUkZXDv ZGRkOyc+PHRhYmxlIHdp ZHRoPScxMDAlJyBzdHls MS8mIy5fYMYpPQHi bQihhNVqZsAjn7enLEJl QCpkON5xwWqdG1GkcIA2 SDCsw6y3Na70K96pS7Aj dXA+SJTjlXV3qWN9 hU4dBaVzXkG1FTtxO962 RjBngKQfExdhn2qhk3xz vVo9JfP1KYFikxHhgTbm XRA5w1OpHy97P38d IHdpZHRoPSIxNSUiIHZh lDljkc3dyF0mGm4+PGNv eOP5pRR3sB7zTeBbQlJ3 XKknF351NwXscLSg Oxyco4hid6lzpDt5KgVj PWTcxqSgeUcrUEU3f3Vk Bi49A0IfdXjbv8EvJxd3 jl07qQIjd1O5yLP5 W7OvMDNsolfpwJHryDla AK5oMLBnpywuJUIssW6x LHDaR8h0KlBaDeM4FRqp W8SocaO4UTKblQSc RMVrlSDEhM6trsdjf5ky cireTuBhKNLoGYb2ZYi5 ZGBenMdjIbYwGNL6ApM2 NGA0eFEjvH0usKro uhdylB5cPqw+XFT4tYLr eVTIYK1uKedqbKP+PHRk YQU5lEsxKBrqPQAnyO9u AIEcS0l5ImUsHsF0 VCysS5CweeI0QJLecBCb GXAgwQFBbY3lyzuhw0mn gvkuIxVlKZCbVYv2JZk7 LWFsaWduOiBsZWZ0 PyF4RCC1aBHmdD2gkPgn jtvixC1jHqe+QmlydGgg VCM3ZOc8E1YhBrq5LDYn qBngBC5kqMPgTUut Mh0dfNdphNxpAU1bVMZg pbyqc927NvVti8jwZSFo zCYrTWpzQTE4J00pb2E2 SNFjNVXdIFF1fRE0 jW4rtYwcxfhouBKghClf hxYcuDnhBFivZXquN189 FWIpgLyfUdJeFLu1M7Ls Xbr1QJJtuFioKM7u jWGhHHrjDv4eaEvxvYxi PY2wRZQogvtos134TsCj j6utEALrxGVfHXktRZE5 D69oy7V8UUAzIWRw BQQ8gDM5xF3utAapptfx bGVmdDsgdmVydGljYWwt TEulB103POXwnQftRsXo qOp9G1AqSfu4CJGx uZdmAV9lkSDnRQeyKn9f vDmtaQqiWS7vRIYtoknb y098HvEyp7bhEXKsbCDp AZzrHJW8O22dr8S4 DZGcHHAmBMS0sXQ0bI1p bGlnbjogbGVmdDsgdmVy gCscXBfqRLonA111BVJu cDsnPlBhdGllbnQg DTtrLDa7M0FzPpgsxNY+ KV75IYYbYH66mBJguFAz u5vkqIt9KrOePSAlSDZ2 jEezEZvlk9NlVKGs S24weCUkw9E0RRIefGuq wEBrBuXviTX2eX4nNRll zhpiw3wussfrHgcpi5or xp54zI73M11kDAbv ZHRoPSIzMCUiIHZhbGln xn7qcP4rJt7+PGNvbCB3 uNV8zI5sQPNdApR3DJuh I129WkVndWQdJuwk q1twk6nbcPs5FdR5SVCm njZahHpmQVI8k5LlDg14 J87kVCujJGPhUOSyGJRx MZGbyLhzgh9whP2y Ii8+TAZhgVA8bEX2sN2g TdOjQoJ1KQltA916EsAi eAViDtxpS18vJ1YjwFJ+ MQOyZlt4BNLdjSue LE5lsAJiUZgwBe6gYXR1 FcRcIjYnGLazR5QuOHNv vwfltiqadUJ2WXSkSRNt rF79Ik8lyQxyJLTt kEDIsA5dwmgxg3sythmt FkPgHGClDPw5KEb7SSEr nWrkGyMkSJC9VmL6BKO7 cVVnkZ6iaIvgqxjr dN4tO1KnBTCafaofQx18 cT6eLmBvEbZ7CWojOzf+ C2BXUuogPI0HZ9dFCUxj SzwvdGQ+PHRkIHN0 jHmoFCkyAVAxlL8lZGOq R4v5NcZvKuX5WFezA0Gn ZLBsowthVz92vQ0hXhZb XyJ2VKoiT7ClnqP5 XHDgiMGmFEszSOK5M36b k8E9DCPcBPPeRVT3nRK0 cI6yfUikskdbjIDdbHtm dmVydGljYWwtYWxp G712QXMolDlgUlHmUhA0 NtB2EkA9Z5LwIff5SYBg pVvsNG5anKHzKKuhHp2c bIzuqNomVU4hXEYv zwexBZRvxC7xVKQqvIIo eObfYE1bKZYgzqauc592 EgGnODP2USNwzCFvH3Vz dW6pHqQwUTKwQZQf I1VnqWWkOFqwO799WTfv ZoD3AZQyicXrU3GoTDDa rDgdSuH6d2U3Wd33YYLW ZWFyczwvdGQ+PHRk UWL3uKxxQNiiKRPbrB6n GXPkR6x2WfQiLcU6JEld U4ScKCByfutaKy88gF1u ZlAkXiW1SWxrA1Qu tmG5ZHQmhVXnXLapVWP5 P86tk1K9HXYdPXFqOXD4 kEF8aB5ezJgiezhyhRRz dDsgdmVydGljYWwt ANlyL351GZUmeLgiOf6K CGF7H0MfEjz2WCZwoPin QM0ijQNrBIhfZo5xtAkx fHmcSJ3fFWQztkjs LVPlmC4xNXEysJOtoFew AL3dOJWmykxwn430WjLh ZKK9LIWsiHKbI2RdrH1m CmYzWSPzRSLtB2Ra uKRsYTeuM318SMfaBmO7 QRUvfiCmW4KkSEZhjSma AcY4l7E5Na5EUSthfZO+ LE30vi19G3ZbLebm Beq9XRPrTAM0dXT7qW3i LETcZUsap9K8eHC8M4Mn anAuek7cp4hnTDEuRAny L70mzJGto0L6GXNs xFS9QIAuwDctZzCreC62 Oyc+QFQgxTipx5JbIkyc a0mge8tatMc6ElZsVKCm buRalBymAQP6x9Uc Bl01H74cWCpmQXHsBWYz NWSxAIEqrNxvqb0ksY3k Ii8+UQBytNS8dAV6aT6y IoRwYaC9CEyfM436 TwIkzVUdLaejt9gjc2co xOb8KsUjWTUfqoIgnYkw VTP7s9EjKg89U5FjnKlz x7SuIuh2vv53zMGv x7D7eOR2V6XsTKNlogxf wGUjtLkgHJ1bBXNpvkhv BFFolT6wIISfZ1n9JzYq NhX3TWeuN7KfsrJ4 PMWajSYiBZUxlSPGsD4b bmcat8qppmxjPiSjHNZg JMx5VMg3OJPrzZxaAoCr UCI7CmK2PYS6oDYm hH1uwXaolposnD3hHpj+ DAd6q2pubSWlMW6bhXE4 WF14NF71wTSzr0V8iTO6 B3VpOAHbgzlghrmz zDV7ABOrQDPquY23Kd8u wZetJm4sKBLbHZQ2NGYd kWGoG3FxhO1xHnLeLRDm YDMwT5HnsSNyEEhv M512BZiaFeB6RGKocvTt W5ApRRLkvKgkLjT9j3I8 Ui0CDP07UT61WP67oXXm d6I3gGO3K7DpQTPl pgywoltbsAG5VNEyVRHz xN38To8ubLtwDl5dZBMr KOI9WTYbzMPiR3IbiN3g GyHqYHHfRMCiB1Vq cLYlEEreX653WHsvZxE8 CSZkvkQtF3UuXURgwSxu JcI3w0X8Cx4UOo70HR36 ZU73rVScr2X6xXQ8 N9QmBEAehkzxpheggIL3 OOSoRJMdoV23Sa3izWko Kl3iEXSbQMS7POEwhCDo L3LzkZ9eOsMmRGLz OYTvY2DphHRyZUqoE985 LPsqBrQ2FCJgwbPkO0Lq HYVnaZicNdQ6z8A3To3I MTjvslo6Q7GuBjfw dHI+WV68DUAcOA73sTPx gTHep2svnKa1IqIvAGAk PMP3gFrzWDsut4HrDHXa Q76clJLit7H7KKEy bGx (more content not included)... Normal [facility] Standard 12-13-2022 eGFR Non AA >60 Invalid Interpretation Code [facility] Comment on above: Performed By: #### 1 [id number], [id number], [id number] ####[facility] (DEFAULT)[address] [place] [address] 67153 eGFR AA >60 Invalid Interpretation Code [facility] Comment on above: Performed By: #### 1 [id number], [id number], [id number] ####[facility] (DEFAULT)[address] [place] [address] 05427 Albumin [Mass/Vol] 3.9 g/dL Normal 3.5-5.0 [facility] Comment on above: Performed By: #### 1 [id number], [id number], [id number] ####[facility] (DEFAULT)[address] [place] [address] 34243 Albumin/Globulin [Mass ratio] 1.0 {ratio} Low 1.4-2.6 [facility] Comment on above: Performed By: #### 1 [id number], [id number], [id number] ####[facility] (DEFAULT)[address] [place] [address] 67831 Alk Phos 84 IU/L Normal 32-91 [facility] Comment on above: Performed By: #### 1 [id number], [id number], [id number] ####[facility] (DEFAULT)[address] [place] [address] 35699 ALT [Catalytic activity/Vol] 22.0 U/L Normal 17.0-63.0 [facility] Comment on above: Performed By: #### 1 [id number], [id number], [id number] ####[facility] (DEFAULT)[address] [place] [address] 26113 Anion gap [Moles/Vol] 9.9 mmol/L Normal 5.0-19.0 [facility] Comment on above: Performed By: #### 1 [id number], [id number], [id number] ####[facility] (DEFAULT)[address] [place] [address] 26441 AST [Catalytic activity/Vol] 31 U/L Normal 15-41 [facility] Comment on above: Performed By: #### 1 [id number], [id number], [id number] ####[facility] (DEFAULT)[address] [place] [address] 29249 Bili Total 0.5 mg/dL Normal 0.3-1.2 [facility] Comment on above: Performed By: #### 1 [id number], [id number], [id number] ####[facility] (DEFAULT)[address] [place] [address] 84646 Calcium [Mass/Vol] 8.6 mg/dL Low 8.9-10.3 [facility] Comment on above: Performed By: #### 1 [id number], [id number], [id number] ####[facility] (DEFAULT)[address] [place] [address] 45049 Chloride [Moles/Vol] 104 mmol/L Normal 101-111 [facility] Comment on above: Performed By: #### 1 [id number], [id number], [id number] ####[facility] (DEFAULT)[address] [place] [address] 68367 CO2 [Moles/Vol] 28 mmol/L Normal 21-32 [facility] Comment on above: Performed By: #### 1 [id number], [id number], [id number] ####[facility] (DEFAULT)[address] [place] [address] 08446 Creatinine [Mass/Vol] 1.07 mg/dL Normal 0.90-1.30 [facility] Comment on above: Performed By: #### 1 [id number], [id number], [id number] ####[facility] (DEFAULT)[address] [place] [address] 65556 Globulin (S) [Mass/Vol] 3.9 g/dL Normal 1.5-4.3 [facility] Comment on above: Performed By: #### 1 [id number], [id number], [id number] ####[facility] (DEFAULT)[address] [place] [address] 82579 Glucose [Mass/Vol] 92.0 mg/dL Normal 74.0-118.0 [facility] Comment on above: Performed By: #### 1 [id number], [id number], [id number] ####[facility] (DEFAULT)[address] [place] [address] 17754 Osmolality 276 mOsm/L Invalid Interpretation Code [facility] Comment on above: Performed By: #### 1 [id number], [id number], [id number] ####[facility] (DEFAULT)[address] [place] [address] 56890 Potassium [Moles/Vol] 3.9 mmol/L Normal 3.6-5.1 [facility] Comment on above: Performed By: #### 1 [id number], [id number], [id number] ####[facility] (DEFAULT)[address] [place] [address] 56765 Protein [Mass/Vol] 7.8 g/dL Normal 6.5-8.1 [facility] Comment on above: Performed By: #### 1 [id number], [id number], [id number] ####[facility] (DEFAULT)[address] [place] [address] 58655 Sodium [Moles/Vol] 138.0 mmol/L Normal 136.0-144.0 [facility] Comment on above: Performed By: #### 1 [id number], [id number], [id number] ####[facility] (DEFAULT)[address] [place] [address] 03358 Urea nitrogen [Mass/Vol] 16 mg/dL Normal 8-26 [facility] Comment on above: Performed By: #### 1 [id number], [id number], [id number] ####[facility] (DEFAULT)[address] [place] [address] 58003 Urea nitrogen/Creatinine [Mass ratio] 14.9 mg/mg Normal 4.6-16.2 [facility] Comment on above: Performed By: #### 1 [id number], [id number], [id number] ####[facility] (DEFAULT)[address] [place] [address] Hemogram Standardon 12-14-19 23 Erythrocyte distribution width (RBC) [Ratio] 14.2 % Normal 11.5-15.0 [facility] Comment on above: Performed By: #### 1 [id number], [id number], [id number] ####[facility] (DEFAULT)[address] [place] [address] 17400 Hematocrit (Bld) [Volume fraction] 41.9 % Normal 34.8-51.9 [facility] Comment on above: Performed By: #### 1 [id number], [id number], [id number] ####[facility] (DEFAULT)[address] [place] [address] 89922 Hemoglobin (Bld) [Mass/Vol] 14.2 g/dL Normal 11.8-17.7 [facility] Comment on above: Performed By: #### 1 [id number], [id number], [id number] ####[facility] (DEFAULT)[address] [place] [address] 37681 MCH (RBC) [Entitic mass] 32 pg Normal 24-34 [facility] Comment on above: Performed By: #### 1 [id number], [id number], [id number] ####[facility] (DEFAULT)[address] [place] [address] 91537 MCHC (RBC) [Mass/Vol] 34 g/dL Normal 26-37 [facility] Comment on above: Performed By: #### 1 [id number], [id number], [id number] ####[facility] (DEFAULT)[address] [place] [address] 89302 MCV (RBC) [Entitic vol] 93 fL Normal 81-100 [facility] Comment on above: Performed By: #### 1 [id number], [id number], [id number] ####[facility] (DEFAULT)[address] [place] [address] 23690 Platelet 122 x10 Low 138-427 [facility] Comment on above: Performed By: #### 1 [id number], [id number], [id number] ####[facility] (DEFAULT)[address] [place] [address] 95493 Platelet mean volume (Bld) [Entitic vol] 8.0 fL Normal 6.3-10.2 [facility] Comment on above: Performed By: #### 1 [id number], [id number], [id number] ####[facility] (DEFAULT)[address] [place] [address] 89942 RBC 4.50 x10 Normal 3.70-5.30 [facility] Comment on above: Performed By: #### 1 [id number], [id number], [id number] ####[facility] (DEFAULT)[address] [place] [address] 55923 WBC 5.5 x10 Normal 3.5-10.5 [facility] Comment on above: Performed By: #### 1 [id number], [id number], [id number] ####[facility] (DEFAULT)[address] [place] [address] 43423 Lipid Panel Standardon 12-13 Cholesterol [Mass/Vol] 158.0 mg/dL Normal 66.0-200.0 [facility] Comment on above: Performed By: #### 1 [id number], [id number], [id number] ####[facility] (DEFAULT)[address] [place] [address] 72027 Cholesterol in HDL [Mass/Vol] 48 mg/dL Normal 40-71 [facility] Comment on above: Performed By: #### 1 [id number], [id number], [id number] ####[facility] (DEFAULT)[address] [place] [address] 97755 Cholesterol in LDL [Mass/Vol] 98 mg/dL Normal 1-100 [facility] Comment on above: Performed By: #### 1 [id number], [id number], [id number] ####[facility] (DEFAULT)[address] [place] [address] 70416 Cholesterol.total/Choles terol in HDL [Mass ratio] 3.3 {ratio} Normal 0.0-4.5 [facility] Comment on above: Performed By: #### 1 [id number], [id number], [id number] ####[facility] (DEFAULT)[address] [place] [address] 18245 Triglyceride [Mass/Vol] 60.0 mg/dL Normal 0.0-150.0 [facility] Comment on above: Performed By: #### 1 [id number], [id number], [id number] ####[facility] (DEFAULT)[address] [place] [address] 08164 VLDL. 12 mg/dL Normal 5-40 [facility] Comment on above: Performed By: #### 1 [id number], [id number], [id number] ####[facility] (DEFAULT)[address] [place] [address] 23459 Provider Orderson 12-13-2022 Provider Orders [id number] 0#[id number] Normal [facility] POC Glucose FingerstickOrder ed By: Serafin Shearer on 06-02-2019 Glucose [Mass/Vol] 70 mg/dL Low 75 - 110 mg/dL [employer] Phone: Interpretation and review of laboratory results Abnormal [employer] Phone: Glucose [Mass/Vol] 74 mg/dL Low 75 - 110 mg/dL [employer] Phone: Interpretation and review of laboratory results Abnormal [employer] Phone: Glucose [Mass/Vol] 64 mg/dL Low 75 - 110 mg/dL [employer] Phone: Interpretation and review of laboratory results Abnormal [employer] Phone: Surgical PathologyOrdered By : Serafni Shearer on 06-02-2019 Surgical Pathology Report [id number] [facility] [address] [place] [address]. [place], [place] [address] SURGICAL PATHOLOGY CONSULTATION Patient Name: YRN RICARDO [facility] Rec: [id number] Path Number: [id number] Collected: 06/01/2019 Received: 06/01/2019 Reported: 06/02/2019 10:13 -- Diagnosis -- PORTION OF STOMACH, SLEEVE GASTRECTOMY: MILD CHRONIC INACTIVE GASTRITIS. Lyndsay Wyatt Electronically Signed Out ajb/06/02/2019 Clinical Information Pre-op Diagnosis: OBESITY, HYPERTENSION, COPD, HYPOTHYROIDISM, LIPODEMIA Operative Findings: PORTION OF STOMACH Operation Performed: GASTRECTOMY SLEEVE LAPAROSCOPIC XI ROBOTIC Source of Specimen 1: PORTION OF STOMACH Gross Description YRN RICARDO, PORTION OF STOMACH 19.5 x 6.5 x 3.7 cm portion of stomach with a staple line that runs along its length. The serosa is pink-abreu and the mucosa is pink-red with no areas of granularity or masses. Strapper sections 1cs. tm Microscopic Description Microscopic examination performed. [employer] Phone: POC Glucose FingerstickOrder ed By: Serafin Shearer on 06-01-2019 Glucose [Mass/Vol] 91 mg/dL 75 - 110 mg/dL [employer] Phone: Glucose [Mass/Vol] 96 mg/dL 75 - 110 mg/dL [employer] Phone: Surgical Pathologyon 020 Surgical Pathology (NOTE) [id number] [facility] [address] [place] [address]. [place], [place] [address] SURGICAL PATHOLOGY CONSULTATION Patient Name: YRN RICARDO [facility] Rec: [id number] Path Number: [id number] Collected: 06/01/2019 Received: 06/01/2019 Reported: 06/02/2019 10:13 -- Diagnosis -- PORTION OF STOMACH, SLEEVE GASTRECTOMY: MILD CHRONIC INACTIVE GASTRITIS. Lyndsay Wyatt Electronically Signed Out ajb/06/02/2019 Clinical Information Pre-op Diagnosis: OBESITY, HYPERTENSION, COPD, HYPOTHYROIDISM, LIPODEMIA Operative Findings: PORTION OF STOMACH Operation Performed: GASTRECTOMY SLEEVE LAPAROSCOPIC XI ROBOTIC Source of Specimen 1: PORTION OF STOMACH Gross Description YRN RICARDO, PORTION OF STOMACH 19.5 x 6.5 x 3.7 cm portion of stomach with a staple line that runs along its length. The serosa is pink-abreu and the mucosa is pink-red with no areas of granularity or masses. Strapper sections 1cs. tm Microscopic Description Microscopic examination performed. Normal [facility] Comment on above: Performed By: #### P PPVS #### [facility] [employer] [address] [place] [address] Roller Stainer: Karl Klein MD Nicotineon 05-23-2019 1-EC-Tkdtbigj 3 ng/mL Normal [facility] Comment on above: Performed By: #### C BC, PT, BMP #### [employer] [address] [place] [address] Roller Stainer: Karl Klein MD #### [employer]IC[employer] #### [address] [address] Roller Stainer: Cameron Calderon MD Cotinine 5 ng/mL [facility] Comment on above: Result Comment: (NOT E) Cotinine is the major metabolite of nicotine and is a biomarker of passive exposure when present at low concentrations. This result may reflect passive exposure to a nicotine-containing product. The half-life of cotinine is approximately 16 hours. Cotinine is metabolized to [id number], which may persist for weeks after cessation from long-term or heavy use of nicotine products. Performed By: #### C BC, PT, BMP #### [facility] [address] [address] Roller Stainer: Karl Klein MD #### RAVIT #### [address] [address] Roller Stainer: Cameron Calderon MD Nicotine <2 [facility] Comment on above: Result Comment: (NOT E) INTERPRETIVE INFORMATION: Nicotine and Metabolites, Serum or Plasma, Quantitative Methodology: Quantitative Liquid Chromatography-Tandem Mass Spectrometry Positive cutoff: 2 ng/mL For medical purposes only; not valid for forensic use. This test is designed to evaluate recent use of nicotine-containing products. Passive and active exposure cannot be discriminated definitively, although a cutoff of 10 ng/mL cotinine is frequently used for surgery qualification purposes. For smoking cessation programs or compliance testing, the absence of expected drug(s) and/or drug metabolite(s) may indicate non-compliance, inappropriate timing of specimen collection relative to drug administration, poor drug absorption, or limitations of testing. This test cannot distinguish between use of tobacco and purified nicotine products. The concentration value must be greater than or equal to the cutoff to be reported as positive. Test developed and characteristics determined by [employer]. See Compliance Statement B: [email or web address] Performed by [employer], [address] [place] [id number] [email or web address], Cameron Calderon MD, Lab. Director Performed By: #### C BC, PT, BMP #### [facility] [address] [place] [address] Roller Stainer: Karl Klein MD #### RAVIT #### [employer] [address] [place] [address] Roller Stainer: Cameron Calderon MD Basic Metabolic Profon 05-19 (cont.) [facility] Comment on above: Result Comment: Aver age GFR for 50-59 years old: 93 mL/min/1.73sq m Chronic Kidney Disease: <60 mL/min/1.73sq m Kidney failure: <15 mL/min/1.73sq m eGFR calculated using average adult body mass. Additional eGFR calculator available at: http://[email or web address]_[email or web address] Performed By: #### C SYD PT, BMP #### [facility] [employer] [address] [place] [phone] Roller Stainer: Karl Klein MD #### ANICOT #### [facility] [address] [place], [place] [id number] Roller Stainer: Cameron Calderon MD Anion gap [Moles/Vol] 14 mmol/L Normal 9-17 [facility] Comment on above: Performed By: #### C SYD PT, BMP #### [address] [address] Roller Stainer: Karl Klein MD #### ANICOT #### [facility] [address] [place], [place] [id number] Roller Stainer: Cameron Calderon MD Calcium [Mass/Vol] 9.7 mg/dL Normal 8.6-10.4 [facility] Comment on above: Performed By: #### Kenrick VELARDE PT, BMP #### [address] [address] Roller Stainer: Karl Klein MD #### ANICOT #### [facility] [address] [place], [place] [id number] Roller Stainer: Cameron Calderon MD Chloride [Moles/Vol] 98 mmol/L Normal 98-107 [facility] [place] [facility] Comment on above: Performed By: #### Kenrick VELARDE PT, BMP #### [facility] [employer] [address] [place] [address] Roller Stainer: Karl Klein MD #### ANICOT #### [facility] [address] [place], [place] [id number] Roller Stainer: Cameron Calderon MD CO2 [Moles/Vol] 25 mmol/L Normal 20-31 [facility] Comment on above: Performed By: #### C BC, PT, BMP #### [facility] [address] [place] [address] Roller Stainer: Karl Klein MD #### ANICOT #### [facility] [address] [place], [place] [id number] Roller Stainer: Cameron Calderon MD Creatinine [Mass/Vol] 1.28 mg/dL High 0.70-1.20 [facility] Comment on above: Performed By: #### C BC, PT, BMP #### [facility] [address] [place] [phone] Roller Stainer: Karl Klein MD #### ANICOT #### [facility] [address] [place], [place] [id number] Roller Stainer: Cameron Calderon MD GFR, Amer >60 Normal >60 [facility] Comment on above: Performed By: #### C BC, PT, BMP #### [facility] [address] [place] [phone] Roller Stainer: Karl Klein MD #### ANICOT #### [facility] [address] [place], [place] [id number] Roller Stainer: Cameron Calderon MD GFR,non Amer 58 mL/min Low >60 [facility] Comment on above: Performed By: #### C BC, PT, BMP #### [facility] [address] [place] [phone] Roller Stainer: Karl Klein MD #### ANICOT #### [facility] [address] [place] [address] Roller Stainer: Cameron Calderon MD Glucose [Mass/Vol] 80 mg/dL Normal 70-99 [facility] [facility] Comment on above: Performed By: #### C BC, PT, BMP #### [facility] [address] [place] [address] Roller Stainer: Karl Klein MD #### ANICOT #### [facility] [address] [place] [address] Roller Stainer: Cameron Calderon MD Potassium [Moles/Vol] 4.6 mmol/L Normal 3.7-5.3 [facility] Comment on above: Performed By: #### Kenrick VELARDE PT, BMP #### [facility] [address] [place] [phone] Roller Stainer: Karl Klein MD #### ANICOT #### [facility] [address] [place] [address] Roller Stainer: Cameron Calderon MD Sodium [Moles/Vol] 137 mmol/L Normal 135-144 [facility] Comment on above: Performed By: #### Kenrick VELARDE PT, BMP #### [facility] [address] [place] [phone] Roller Stainer: Karl Klein MD #### ANICOT #### [facility] [address] [place] [address] Roller Stainer: Cameron Calderon MD Urea nitrogen [Mass/Vol] 23 mg/dL High 6-20 [facility] Comment on above: Performed By: #### Kenrick VELARDE PT, BMP #### [facility] [address] [place] [address] Roller Stainer: Karl Klein MD #### ANICOT #### [facility] [address] [place] [address] Roller Stainer: Cameron Calderon MD BUN/CRE Ratio NOT REPORTED Normal 9-20 [facility] Comment on above: Performed By: #### Kenrick VELARDE PT, BMP #### [facility] [address] [place] [address] Roller Stainer: Karl Klein MD #### ANICOT #### [facility] [address] [place] [address] Roller Stainer: Cameron Calderon MD Staging: NOT REPORTED Normal [facility] Comment on above: Performed By: #### C BC, PT, BMP #### [address] [id number] Roller Stainer: Karl Klein MD #### ANICOT #### [facility] [address] [place] [address] Roller Stainer: Cameron Calderon MD [facility] 05-19-2019 Erythrocyte distribution width (RBC) [Ratio] 16.0 % High 11.8-14.4 [facility] Comment on above: Performed By: #### C BC, PT, BMP #### [address] [address] Roller Stainer: Karl Klein MD #### ANICOT #### [facility] [address] [place] [address] Roller Stainer: Cameron Calderon MD Hematocrit (Bld) [Volume fraction] 42.0 % Normal 40.7-50.3 [facility] Comment on above: Performed By: #### C BC, PT, BMP #### [address] [address] Roller Stainer: Karl Klein MD #### ANICOT #### [facility] [address] [place] [address] Roller Stainer: Cameron Calderon MD Hemoglobin (Bld) [Mass/Vol] 13.2 g/dL Normal 13.0-17.0 [facility] Comment on above: Performed By: #### C BC, PT, BMP #### [facility] [employer] [address] [place] [address] [phone] Roller Stainer: Karl Klein MD #### ANICOT #### [facility] [address] [place], [place] [id number] Roller Stainer: Cameron Calderon MD MCH (RBC) [Entitic mass] 28.4 pg Normal 25.2-33.5 [facility] Comment on above: Performed By: #### C BC, PT, BMP #### [address] [address] Roller Stainer: Karl Klein MD #### ANICOT #### [facility] [address] [place] [address] Roller Stainer: Cameron Calderon MD MCHC (RBC) [Mass/Vol] 31.4 g/dL Normal 28.4-34.8 [facility] Comment on above: Performed By: #### Kenrick BC, PT, BMP #### [place] [address] Roller Stainer: Karl Klein MD #### ANICOT #### [address] [address] Roller Stainer: Cameron Calderon MD MCV (RBC) [Entitic vol] 90.3 fL Normal 82.6-102.9 [facility] Comment on above: Performed By: #### Kenrick BC, PT, BMP #### [address] [address] Roller Stainer: Karl Kelin MD #### ANICOT #### [facility] [address] [place] [address] Roller Stainer: Cameron Calderon MD NRBC Automated 0.0 per 100 WBC Normal 0.0 [facility] Comment on above: Performed By: #### C BC, PT, BMP #### [address] [id number] Roller Stainer: Karl Klein MD #### ANICOT #### [facility] [address] [place] [address] Roller Stainer: Cameron Calderon MD Platelet mean volume (Bld) [Entitic vol] 9.8 fL Normal 8.1-13.5 [facility] Comment on above: Performed By: #### C BC, PT, BMP #### [address] [address] Roller Stainer: Karl Klein MD #### ANICOT #### [facility] [address] [place] [address] Roller Stainer: Cameron Calderon MD Platelets (Bld) [#/Vol] 199 10*3/uL Normal 138-453 [facility] Comment on above: Performed By: #### C BC, PT, BMP #### [address] [address] Roller Stainer: Karl Klein MD #### ANICOT #### [facility] [address] [place] [address] Roller Stainer: Cameron Caldeorn MD RBC (Bld) [#/Vol] 4.65 10*6/uL Normal 4.21-5.77 [facility] Comment on above: Performed By: #### C BC, PT, BMP #### [address] [address] Roller Stainer: Karl Klein MD #### ANICOT #### [facility] [address] [place] [address] Roller Stainer: Cameron Calderon MD WBC (Bld) [#/Vol] 6.7 10*3/uL Normal 3.5-11.3 [facility] Comment on above: Performed By: #### C BC, PT, BMP #### [address] [address] Roller Stainer: Karl Klein MD #### ANICOT #### [facility] [address] [place], [place] [id number] Roller Stainer: Cameron Calderon MD PTon 05-19-2019 INR Coag (PPP) [Relative time] 1.1 {INR} Normal [facility] Comment on above: Result Comment: Therapeutic Range: Moderate Anticoagulant Intensity: INR = 2.0-3.0 High Anticoagulant Intensity: INR = 2.5-3.5 Performed By: #### C BC, PT, BMP #### [facility] [address] [place] [address] [phone] Roller Stainer: Karl Klein MD #### ANICOT #### [facility] [address] [place] [address] Roller Stainer: Cameron Calderon MD PT Coag (PPP) [Time] 12.0 s Normal 9.0-12.0 [facility] Comment on above: Performed By: #### C BC, PT, BMP #### [facility] [address] [place] [address] [phone] Roller Stainer: Karl Klein MD #### ANICOT #### [facility] [address] [place], [place] [id number] Roller Stainer: Cameron Calderon MD XR CHEST (2 VW)on 05-19-2019 XR CHEST (2 VW) EXAMINATION: TWO XRAY VIEWS OF THE CHEST 05/19/2019 11:41 am COMPARISON: None. HISTORY: ORDERING SYSTEM PROVIDED HISTORY: preop sleeve gastrectomy Reason for Exam: Preop 06/01/19. no chest complaints Type of Exam: Initial FINDINGS: The lungs are without acute focal process. No effusion or pneumothorax. The cardiomediastinal silhouette is normal. The osseous structures are intact without acute process. IMPRESSION: Negative chest. Interpreted by: Shawanda Aragon MD Signed by: Shawanda Aragon MD 05/19/19 Final result Normal [facility] XR CHEST STANDARD (2 VW)Orde red By: Serafin Shearer on 05-19-2019 Negative chest. Krystin Guevara [facility] Work Phone: EXAMINATION: TWO XRAY VIEWS OF THE CHEST 05/19/2019 11:41 am COMPARISON: None. HISTORY: ORDERING SYSTEM PROVIDED HISTORY: preop sleeve gastrectomy Reason for Exam: Preop 06/01/19. no chest complaints Type of Exam: Initial FINDINGS: The lungs are without acute focal process. No effusion or pneumothorax. The cardiomediastinal silhouette is normal. The osseous structures are intact without acute process. [employer] Work Phone: Car, [employer] Incoming Radiant Results From [employer]/e-[employer] - 05/19/2019 11:50 AM EST EXAMINATION: TWO XRAY VIEWS OF THE CHEST 05/19/2019 11:41 am COMPARISON: None. HISTORY: ORDERING SYSTEM PROVIDED HISTORY: preop sleeve gastrectomy Reason for Exam: Preop 06/01/19. no chest complaints Type of Exam: Initial FINDINGS: The lungs are without acute focal process. No effusion or pneumothorax. The cardiomediastinal silhouette is normal. The osseous structures are intact without acute process. IMPRESSION: Negative chest. [employer] Work Phone: Vital Signs Date Time Vital Sign Value Performing Clinician Emilia henley 05-14-2023 11:28-0500 Body height 190.5 cm Olaf esquivel GUEST RELATIONS OFFICER-LAB PACK CHEMIST Work Phone: [employer] 05-14-2023 11:28-0500 Body mass index (BMI) [Ratio] 48.25 kg/m2 Olaf Cain GUEST RELATIONS OFFICER-LAB PACK CHEMIST Work Phone: [employer] 05-14-2023 11:28-0500 Body weight 175.09 kg Olaf esquivel GUEST RELATIONS OFFICER-LAB PACK CHEMIST Work Phone: [employer] 05-14-2023 11:28-0500 Diastolic blood pressure 80 mm[Hg] Olaf Cain GUEST RELATIONS OFFICER-LAB PACK CHEMIST Work Phone: [employer] 05-14-2023 11:28-0500 Heart rate 61 /min Olaf Sheae juan r GUEST RELATIONS OFFICER-LAB PACK CHEMIST Work Phone: [employer] 05-14-2023 11:28-0500 SaO2% (BldA) [Mass fraction] 95 % Olaf Cain GUEST RELATIONS OFFICER-LAB PACK CHEMIST Work Phone: [employer] 05-14-2023 11:28-0500 Systolic blood pressure 116 mm[Hg] Olaf Cain GUEST RELATIONS OFFICER-LAB PACK CHEMIST Work Phone: [employer] 06-02-2019 07:15-0500 Body temperature 99.3 [degF] Serafin Shearer MD Work Phone: [employer] Work Phone: 06-02-2019 07:15-0500 Diastolic blood pressure 59 mm[Hg] Serafin Shearer MD Work Phone: [employer] Work Phone: 06-02-2019 07:15-0500 Heart rate 62 /min Serafin Shearer MD Work Phone: [employer] Work Phone: 06-02-2019 07:15-0500 Respiratory rate 16 /min Serafin Shearer MD Work Phone: [employer] Work Phone: 06-02-2019 07:15-0500 SaO2% (BldA) [Mass fraction] 95 % Serafin Shearer MD Work Phone: [employer] Work Phone: 06-02-2019 07:15-0500 Systolic blood pressure 116 mm[Hg] Serafin Shearer MD Work Phone: [employer] Work Phone: 06-01-2019 09:10-0500 Body height 190.5 cm Serafin Shearer MD Work Phone: [employer] Work Phone: 06-01-2019 09:10-0500 Body mass index (BMI) [Ratio] 53.24 kg/m2 Serafin Shearer MD Work Phone: [employer] Work Phone: 06-01-2019 09:10-0500 Body weight 193.2 kg Serafin Shearer MD Work Phone: [employer] Work Phone: Encounters Encounter Date Encounter Type Care Provider Facility Start: 08-26-2023 ambulatory LESLY MELCHOR MD Facil ity:[facility] Start: 08-19-2023 End: 08-20-2023 ambulatory LESLY MELCHOR MD Facility:[facility] Start: 08-15-2023 End: 08-16-2023 ambulatory LESLY MELCHOR MD Facility:[facility] Start: 08-08-2023 End: 08-09-2023 ambulatory LESLY MELCHOR MD Facility:[facility] Start: 08-01-2023 End: 08-02-2023 ambulatory PETER Redmond Facility:[facility] Start: 07-26-2023 End: 07-27-2023 ambulatory Srinivas R Dolce Facility:[facility] Start: 07-24-2023 End: 07-25-2023 ambulatory Srinivas R Dolce Facility:[facility] Start: 07-24-2023 End: 07-25-2023 ambulatory Srinivas R Dolce Facility:[facility] Start: 07-23-2023 ambulatory Melo Reno acility:[facility] Start: 07-19-2023 End: 07-20-2023 ambulatory LESLY MELCHOR MD Facility:[facility] Start: 07-19-2023 End: 07-20-2023 ambulatory Srinivas R Dolce Facility:[facility] Start: 07-15-2023 End: 07-16-2023 ambulatory Srinivas R Dolce Facility:[facility] Start: 07-12-2023 End: 07-13-2023 ambulatory Srinivas R Dolce Facility:[facility] Start: 07-10-2023 End: 07-11-2023 ambulatory Srinivas R Dolce Facility:[facility] Start: 07-05-2023 End: 07-06-2023 ambulatory Srinivas Luciano Facility:[facility] Start: 07-01-2023 End: 07-02-2023 ambulatory Srinivas Juan R Luciano Facility:[facility] Start: 06-26-2023 End: 06-27-2023 ambulatory LESLY MELCHOR MD Facility:[facility] Start: 05-14-2023 End: 05-14-2023 Office outpatient visit 15 minutes Olaf GOOD Work Phone: [facility] Comment on above: Cardiac pacemaker (P rimary Dx); Morbid obesity with BMI of 40.0-44.9, adult ([facility]); Complete heart block ([facility]) Start: 05-14-2023 End: 05-14-2023 Clinical Support Ppc Pacer [facility] Comment on above: Cardiac pacemaker (P rimary Dx) Start: 03-26-2023 End: 03-27-2023 ambulatory LESLY MELCHOR MD Facility:[facility] Start: 12-21-2022 End: 12-22-2022 ambulatory LESLY MELCHOR MD Facility:[facility] Start: 12-13-2022 End: 12-14-2022 ambulatory Ai Cormier Facility:[facility] Start: 11-27-2022 ambulatory LESLY MELCHOR MD Facil ity:[facility] Start: 10-09-2022 ambulatory LESLY MELCHOR MD Facil ity:[facility] Start: 02-10-2021 End: 02-11-2021 ambulatory CONSUELO DENNISATUL [facility] Start: 02-10-2021 End: 02-10-2021 Subsequent hospital visit by physician [facility] Comment on above: History of pulmonary embolism; Hx of deep venous thrombosis Start: 06-01-2019 End: 06-02-2019 Evaluation and management of inpatient SERAFIN SHEARER [facility] Start: 06-01-2019 End: 06-02-2019 Evaluation and management of inpatient Serafin Shearer MD Work Phone: [facility] Orth[facility]/Med [facility] Comment on above: S/P laparoscopic sle ramon gastrectomy (Primary Dx) Start: 05-19-2019 End: 2019 Patient encounter procedure SERAFIN SHEARER [facility] Start: 05-19-2019 End: 05-21-2019 Subsequent hospital visit by physician Christian [facility] Comment on above: Arrived Procedures Date Procedure Procedure Detail Performing Clinician Start: 06-02-2019 Glucose blood reagent strip SERAFIN SHEARER Start: 06-02-2019 Glucose blood reagent strip Serafin Shearer MD Work Phone: Start: 06-02-2019 HOME BIPAP OR CPAP SERAFIN SHEARER Start: 06-02-2019 INITIATE OXYGEN THERAPY PROTOCOL SERAFIN SHEARER Start: 06-02-2019 Glucose blood reagent strip SERAFIN SHEARER Start: 06-02-2019 DISCHARGE PATIENT SERAFIN SHEARER Start: 06-02-2019 Glucose blood reagent strip Serafin Shearer MD Work Phone: Start: 06-02-2019 Glucose blood reagent strip Serafin Shearer MD Work Phone: Start: 06-02-2019 INTAKE AND OUTPUT SERAFIN SHEARER Start: 06-01-2019 Glucose blood reagent strip SERAFIN SHEARER Start: 06-01-2019 Glucose blood reagent strip Serafin Shearer MD Work Phone: Start: 06-01-2019 PATIENT STATUS (DIRECT) SERAFIN SHEARER Start: 06-01-2019 Level iv surg pathology gross&microscopic exam SERAFIN SHEARER Start: 06-01-2019 Glucose blood reagent strip SERAFIN SHEARER Start: 06-01-2019 Level iv surg pathology gross&microscopic exam Serafin Shearer MD Work Phone: Start: 06-01-2019 Glucose blood reagent strip Serafin Shearer MD Work Phone: Start: 06-01-2019 TELEMETRY MONITORING SERAFIN SHEARER Start: 06-01-2019 DIET NPO, NOW SERAFIN SHEARER Start: 06-01-2019 FULL CODE SERAFIN SHEARER Start: 06-01-2019 HOME BIPAP OR CPAP SERAFIN SHEARER Start: 06-01-2019 INITIATE OXYGEN THERAPY PROTOCOL SERAFIN SHEARER Start: 06-01-2019 INTAKE AND OUTPUT SERAFIN SHEARER Start: 06-01-2019 PLACE INTERMITTENT PNEUMATIC COMPRESSION DEVICE SERAFIN SHEARER Start: 06-01-2019 VITAL SIGNS SERAFIN SHEARER Start: 06-01-2019 H/O: surgery S/P laparoscopic sleeve gastrectomy Serafin Shearer MD Work Phone: Start: 06-01-2019 ELEVATE HEELS OFF OF BED SERAFIN SHEARER Start: 06-01-2019 HEAD OF BED 60 DEGREES OR LESS SERAFIN LUNALOUISE Start: 06-01-2019 NURSING COMMUNICATION SERAFIN SHEARER Start: 06-01-2019 TURN PATIENT SERAFIN FOURLOUISE Start: 06-01-2019 PATIENT STATUS (FROM ED OR OR/PROCEDURAL) SERAFIN LUNALOUISE Start: 06-01-2019 TRANSFER PATIENT SERAFIN LUNALOUISE Start: 06-01-2019 Level iv surg pathology gross&microscopic exam SERAFIN LUNALOUISE Start: 06-01-2019 End: 06-01-2019 Laps gstrc rstrictiv px longitudinal gastrectomy Serafin Shearer MD Work Phone: Start: 05-19-2019 NURSING COMMUNICATION SERAFIN LUNALOUISE Start: 05-19-2019 Assay of nicotine SERAFIN LUNALOUISE Start: 05-19-2019 Basic metabolic panel calcium total SERAFIN SHEARER Start: 05-19-2019 Blood count complete automated SERAFIN SHEARER Start: 05-19-2019 Prothrombin time SERAFIN SHEARER Start: 05-19-2019 Radiologic exam chest 2 views SERAFIN LUNALOUISE Start: 05-19-2019 Ecg routine ecg w/least 12 lds w/i&r SERAFIN LUNALOUISE Start: 05-19-2019 EKG REPORT SERAFIN LUNALOUISE Start: 05-19-2019 Radiologic exam chest 2 views Serafin Shearer MD Work Phone: Plan of Treatment Date Care Activity Detail Author Start: 2027 Pneumococcal 0-64 ye ars Vaccine (2 of 2 - PPSV23) Pneumococcal 0-64 years Vaccine (2 of 2 - PPSV23) [facility] Work Phone: Start: 12-30-2025 Lipid panel Lipid screen [facility] Work Phone: Start: 05-14-2024 Adult BMI Screening Adult BMI Screen ing [facility] Start: 05-14-2024 Tobacco Screening Tobacco Screening [facility] Start: 07-30-2023 Lipid screen Lipid screen [facility] [employer] Phone: Start: 12-30-2021 Creatinine measurement Creatinine mo nitoring [facility] [employer] Phone: Start: 12-30-2021 Potassium monitoring Potassium monit [facility] [employer] Phone: Start: 12-30-2021 Thyroid stimulating hormone measurement TSH testing [facility] [employer] Phone: Start: 08-29-2021 End: 08-29-2021 Patient encounter procedure 08/29/2021 Office Visit Oncology Consuelo Delgadillo MD [address] [place], [place] [phone] [facility] Start: 03-24-2021 End: 03-24-2021 Patient encounter procedure 03/24/2021 Office Visit Pulmonology Teddy Fam MD [address] [place] [address] [phone] [facility] Start: 02-14-2021 End: 02-14-2021 Patient encounter procedure 02/14/2021 Office Visit Bariatrics Mary Lou Power, GUEST RELATIONS OFFICER - LAB PACK CHEMIST [address] [place] [address] [facility] Start: 01-04-2021 Influenza vaccination Flu vaccine (# 1) [facility] [employer] Phone: Start: 05-19-2020 Creatinine monitoring Creatinine mon itoring [facility] [employer] Phone: Start: 05-19-2020 Potassium monitoring Potassium monit [facility] [employer] Phone: Start: 07-30-2019 TSH testing TSH testing [facility] [employer] Phone: Start: 06-12-2019 End: 06-12-2019 Patient encounter procedure 06/12/2019 Office Visit Pulmonology Teddy Fam MD [address] [place] [place] [address] [phone] [facility] Start: 06-09-2019 End: 06-09-2019 Patient encounter procedure 06/09/2019 Office Visit Bariatrics Serafin Shearer MD [address] [place] [address] [facility] Start: 06-01-2019 End: 06-01-2019 Admission to same day surgery center 06/01/2019 Surgery IP Unit Serafin Shearer MD [address] [place] [address] XI ROBOTIC LAPAROSCOPIC GASTRECTOMY SLEEVE, ENDOSEAL [facility] Comment on above: XI ROBOTIC LAPAROSCO PIC GASTRECTOMY SLEEVE, ENDOSEAL Start: 06-01-2019 Subsequent hospital visit by physician 06/01/2019 Hospital Encounter IP Unit Serafin Shearer MD [address] [place] [address] [facility] Start: 03-06-2019 Annual Wellness Visi t (AWV) Annual Wellness Visit (AWV) [employer] Phone: Start: 2012 Administration of varicella zoster vaccine Zoster (Shingles) Vaccine (1 of 2) [employer] Start: 2012 Colon cancer screen colonoscopy Colon cancer screen colonoscopy [employer] Phone: Start: 2012 Shingles Vaccine (1 of 2) Shingles Vaccine (1 of 2) [employer] Phone: Start: 2007 Screening for malign ant neoplasm of colon Colon cancer screen colonoscopy [employer] Phone: Start: 1981 DTaP,Tdap and Td Vaccines (1 - Tdap) DTaP,Tdap and Td Vaccines (1 - Tdap) [employer] Start: 1981 DTaP/Tdap/Td vaccine (1 - Tdap) DTaP/Tdap/Td vaccine (1 - Tdap) [employer] Phone: Start: 1980 Adult BMI Follow Up Plan Adult BMI Follow Up Plan [employer] Start: 1977 HIV screen HIV screen Krystin [facility] Work Phone: Start: 1977 HIV screening HIV screen Krystin Guevara [facility] Work Phone: Start: 1974 Depression Screening Depression Scre ening [employer] Start: 1973 DTaP/Tdap/Td vaccine (1 - Tdap) DTaP/Tdap/Td vaccine (1 - Tdap) [employer] Phone: Start: 1962 Hepatitis C screen Hepatitis C kojo franz [employer] Phone: Start: 1962 Hepatitis C screening Hepatitis C sc reeosei [employer] Phone: Start: 1962 Tobacco Counseling Tobacco Counselin g [employer] Home BIPAP or CPAP Home BIPAP or CPAP Respiratory Care Routine Daily until discontinued starting 06/01/2019 [employer] Phone: Comment on above: Daily until disconti nued starting 06/01/2019 Initiate Oxygen Ther apy Protocol Initiate Oxygen Therapy Protocol Respiratory Care Routine Daily until discontinued starting 06/01/2019 [employer] Phone: Comment on above: Daily until disconti nued starting 06/01/2019 Surgical Pathology Surgical Path ology Lab Routine ONE TIME for 1 Occurrences starting 06/01/2019 [employer] Phone: Comment on above: ONE TIME for 1 Occur rences starting 06/01/2019 Immunizations Immunization Date Immunization Notes Care Provider Bhavna lynch 12-16-2013 pneumococcal polysaccharide vaccine, 23 valent Stv 2 [employer] Payers Date Payer Category Payer Self-pay 2019 Unknown [employer] WEN DUAL xxxxxxxxxxx 2019-Present [address] [place] [address] xxxxxxxxxxx [id number] 2018 Medicaid [place] MED[place] ARANDA MEDICAID [id number] 2018-Present [phone] [address] [place] [address] [id number] 2018 Medicaid [id number] 2018 Medicare [employer] MEDICARE [place] WENHI MEDICARE [id number] 2018-Present [phone] [address] [place] [address] [id number] 2018 Unknown [id number] 1962 Unknown [id number] 2.16.840.1.842992.3.579.2.175 1962 Unknown [id number] 2.16.840.1.509289.3.579.2.175 1962 Unknown [id number] 2.16.840.1.815130.3.579.2.175 1962 Unknown [id number] 2.16.840.1.891025.3.579.2.176 1962 Unknown [id number] 2.16.840.1.992180.3.579.2.1286 1962 Unknown [id number] 2.16.840.1.912752.3.579.2.1286 1962 Unknown [id number] 2.16.840.1.403061.3.579.2.718 1962 Unknown [id number] 2.16.840.1.287577.3.579.2.718 1962 Unknown [id number] 2.16.840.1.775306.3.579.2. 1962 Unknown [id number] 2.16.840.1.024167.3.579.2. 1962 Unknown [id number] 2.16.840.1.329452.3.579.2. 1962 Unknown [id number] 2.16.840.1.632831.3.579.2. 1962 Unknown [id number] 2.16.840.1.632625.3.579.2. 1962 Unknown [id number] 2.16.840.1.630417.3.579.2. 1962 Unknown [id number] 2.16.840.1.262926.3.579.2. 1962 Unknown [id number] 2.16.840.1.508649.3.579.2. 1962 Unknown [id number] 2.16.840.1.687046.3.579.2. 1962 Unknown [id number] 2.16.840.1.917858.3.579.2. 1962 Unknown [id number] 2.16.840.1.676370.3.579.2. 1962 Unknown [id number] 2.16.840.1.822435.3.579.2. 1962 Unknown [id number] 2.16.840.1.107946.3.579.2. 1962 Unknown [id number] 2.16.840.1.156723.3.579.2. 1962 Unknown [id number] 2.16.840.1.639676.3.579.2. 1962 Unknown [id number] 2.16.840.1.962796.3.579.2. 1962 Unknown [id number] 2.16.840.1.415340.3.579.2.718 1962 Unknown [id number] 2.16.840.1.854916.3.579.2.718 1962 Unknown [id number] 2.16.840.1.410125.3.579.2.718 1962 Unknown [id number] 2.16.840.1.772859.3.579.2.718 Unknown [id number] 2.16.840.1.893143.3.579.2.531 Social History Date Type Detail Facility Start: 02-08-2021 End: 04-18-2022 Tobacco smoking status NHIS Never smoker [facility] Start: 02-08-2021 Tobacco use and exposure Former user [employer] Phone: End: 01-17-2021 History of tobacco use Chews Tobacco [employer] Phone: Start: 02-08-2021 End: 05-14-2023 Alcohol intake Ex-drinker (finding) [employer] Phone: Start: 07-25-2018 History SDOH Alcohol Frequency 1 [employer] Phone: Start: 1960 Sex Assigned At Not on file M [employer] Phone: Start: 04-18-2022 Tobacco use and exposure User of smokeless tobacco [facility] [employer] [facility] Start: 06-16-2020 End: 05-14-2023 History of Social function [facility] [employer] [facility] Start: 06-16-2020 End: 05-14-2023 Tobacco use panel [facility] Housing Instability Unknown [facility] Medical Equipment Procedure Code Equipment Code Equipment Origin al Text Equipment Identifier Dates Ld Pcng Ingevity + 52cm Mri - [id number] - [id number] Start: 08-25-2020 Cardiac pacemaker, device (physical object) ([id number]) Pcmkr Accolade Mri Dr Cade - [id number] - [id number] Start: 04-22-2021 Goals Date Patient Goal Desired Activity /State Personal health goal Comment on above: Formatting of this n ote might be different from the original. Evaluation of progress towards goal: home self care Clinical Notes 06-02-2019 to 07-24-2023 Olaf Cain APRN-LAB PACK CHEMIST - 05/14/2023 11:30 AM Juanita Hopper MD - 05/14/2023 11:00 AM Starr Sanon RN - 06/02/2019 7:24 AM Serafin Jesus MD - 06/02/2019 6:43 AM EST Note Date & Type Note Facility 07-24-2023 Note CLINICAL DATA: Venou s insufficiency PROCEDURE: Right lower extremity venous duplex ultrasound. TECHNIQUE: Baker-scale, color flow, and waveform spectral analysis was performed of the right lower extremity. FINDINGS: The right common femoral, profunda femoral, femoral, and popliteal veins were compressible. The saphenous vein was compressible. No venous thrombosis was seen. Note is made of reflux within the great saphenous vein starting at the proximal thigh extending to the mid calf. Reflux was also seen in the small saphenous vein within the calf. At the knee the great saphenous vein measures 7 mm. IMPRESSION: 1. No acute lower extremity deep venous thrombosis. 2. No superficial venous thrombosis. 3. Reflux within the right great saphenous vein as noted above with dilatation. 4. Reflux within the mid calf segment of the right small saphenous vein. Final Dictated by: Romulo Wright Dictated DT/TM: 07/24/23 9:37 Signed (Electronic Signature): Romulo Wright 07/24/23 10:38 a Technologist: [facility] 07-08-2023 Note Entered by Yousuf Pierce on July 08, 2023 07:59:35 EST From: Ana Pierce To: [facility] Sent: 07/08/2023 07:59:35 EST Subject: Medication Management Not Approved: now on pulmicort fluticasone (FLUTICASONE PROP HFA 110MCG 110 Aerosol) INHALE 2 PUFFS BY MOUTH TWICE DAILY *RINSE MOUTH AFTER USE* Qty: 12 gm Days Supply: 30 Refills: 10 Substitutions Allowed Route To Pharmacy - [facility] Signed by Ana Pierce --------- From: [facility] To: KAREN ZAPATA, LESLY To MD Sent: July 05, 2023 4:32:01 PM RN PROCEDURES Subject: Medication Management Due: July 06, 2023 12:09:30 AM RN PROCEDURES On Hold Pending Signature Drug: fluticasone (Flovent HFA 110 mcg/inh inhalation aerosol), INHALE 2 PUFFS BY MOUTH TWICE DAILY *RINSE MOUTH AFTER USE* Quantity: 12 gm Days Supply: 0 Refills: 9 Substitutions Allowed Notes from Pharmacy: Dispensed Drug: fluticasone (fluticasone CFC free 110 mcg/inh inhalation aerosol), INHALE 2 PUFFS BY MOUTH TWICE DAILY *RINSE MOUTH AFTER USE* Quantity: 12 gm Days Supply: 30 Refills: 10 Substitutions Allowed Notes from Pharmacy: --------- [facility] 05-28-2023 Note Entered by Yousuf Pierce on May 28, 2023 07:49:21 EST From: Ana Pierce To: [facility] Sent: 05/28/2023 07:49:21 EST Subject: Medication Management Submitted: Complete:oxyBUTYnin (oxybutynin 10 mg/24 hr oral tablet, extended release) Signed by Ana Pierce 05/28/2023 07:49:00 EST Approved with modifications: oxyBUTYnin (OXYBUTYNIN ER 10MG TAB 10 Tablet) TAKE 1 TABLET BY MOUTH DAILY Qty: 30 tab(s) Days Supply: 30 Refills: 10 Substitutions Allowed Route To Pharmacy - [facility] Signed by Ana Pierce --------- From: [facility] To: KAREN ZAPATA, LESLY To MD Sent: May 27, 2023 5:22:40 PM RN PROCEDURES Subject: Medication Management Due: May 28, 2023 12:05:03 AM RN PROCEDURES On Hold Pending Signature Drug: oxyBUTYnin (oxybutynin 10 mg/24 hr oral tablet, extended release), 1 tab(s) PO Daily Quantity: 30 tab(s) Days Supply: 0 Refills: 10 Substitutions Allowed Notes from Pharmacy: Dispensed Drug: oxyBUTYnin (oxybutynin 10 mg/24 hr oral tablet, extended release), TAKE 1 TABLET BY MOUTH DAILY Quantity: 30 tab(s) Days Supply: 30 Refills: 10 Substitutions Allowed Notes from Pharmacy: --------- [facility] 05-14-2023 History of Present illness Narrative Yrn Ricardo Date of visit: 05/14/2023 Date of : 1960 Age: 62 y.o. Patient Active Problem List Diagnosis Complete heart block (CMS-HCC) Abnormal stress test Cardiac pacemaker Morbid obesity with BMI of 40.0-44.9, adult (CMS-HCC) Bilateral primary osteoarthritis of knee Blister of left leg Primary osteoarthritis of left knee Genu varum of left lower extremity Tobacco chew use Syncope History of PSVT (paroxysmal supraventricular tachycardia) No Known Allergies Current Outpatient Medications Medication Sig Dispense Refill albuterol (PROVENTIL HFA;VENTOLIN HFA) 90 mcg/actuation inhaler Inhale 2 puffs every 4 (four) hours as needed for wheezing or shortness of breath. ARIPiprazole (ABILIFY) 20 mg tablet Take 1 tablet (20 mg total) by mouth in the morning. bumetanide (BUMEX) 1 mg tablet as directed Orally calcitonin, salmon, (MIACALCIN) 200 unit/actuation nasal spray daily. cetirizine (ZyrTEC) 10 mg tablet Take 1 tablet (10 mg total) by mouth in the morning. citalopram (CeleXA) 10 mg tablet Take 1 tablet (10 mg total) by mouth in the morning. DULoxetine (CYMBALTA) 30 mg capsule Take 1 capsule (30 mg total) by mouth in the morning. fluticasone propionate (FLOVENT HFA) 110 mcg/actuation inhaler Inhale 1 puff in the morning and 1 puff before bedtime. folic acid (FOLVITE) 1 mg tablet Take 1 tablet (1,000 mcg total) by mouth in the morning. levothyroxine sodium (TIROSINT) 150 mcg capsule Take 1 capsule (150 mcg total) by mouth in the morning. LORazepam (ATIVAN) 0.5 mg tablet Take 1 tablet (0.5 mg total) by mouth in the morning and 1 tablet (0.5 mg total) before bedtime. multivitamin capsule Take 1 tablet by mouth daily. oxybutynin XL (DITROPAN-XL) 10 mg 24 hr tablet Take 1 tablet (10 mg total) by mouth in the morning. oxyCODONE-acetaminophen (PERCOCET) 7.5-325 mg per tablet Take 1 tablet by mouth every 4 (four) hours as needed for pain. OYSTER SHELL CALCIUM-VIT D3 500 mg(1,250mg) -200 unit per tablet Take 1 tablet by mouth in the morning and 1 tablet before bedtime. rivaroxaban (XARELTO) 20 mg tablet tablet Take 1 tablet (20 mg total) by mouth in the evening. trazodone HCl (TRAZODONE ORAL) Take 100 mg by mouth nightly. zolpidem (AMBIEN) 5 mg tablet Take 1 tablet (5 mg total) by mouth nightly as needed for sleep. No current facility-administered medications for this visit. Chief Complaint Patient presents with Device Check History of Present Illness Yrn Ricardo is a 62-year-old with history of PE, chronic lymphedema, complete heart block s/p [employer] dual-chamber pacemaker implanted 2020. He is here today for routine evaluation. Patient states he has been doing well since last office visit. He denies chest pain, shortness of breath, palpitations, fatigue. Patient enjoys fishing with his grandson. Past Medical History: Diagnosis Date Anxiety COPD (chronic obstructive pulmonary disease) ([facility]) Depression Hypertension Hypothyroidism Sleep apnea No data recorded No data recorded No data recorded Past Surgical History: Procedure Laterality Date Cardiac catheterization N/A 08/23/2020 Performed by Brian Hilario MD at [facility] CARDIAC CATH LABS Coronary angiogram and left ventricular gram/pressure N/A 08/23/2020 Performed by Brian Hilario MD at [facility] CARDIAC CATH LABS EP - Device-PPM Left 08/25/2020 Performed by Alexander Hopper MD at [facility] (EP) HAND RECONSTRUCTION Left SLEEVE GASTROPLASTY 05/2019 Family History Adopted: Yes Social History Socioeconomic History Marital status: Spouse name: Not on file Number of children: Not on file Years of education: Not on file Highest education level: Not on file Occupational History Not on file Tobacco Use Smoking status: Never Smokeless tobacco: Current Types: Chew Vaping Use Vaping Use: Never used Substance and Sexual Activity Alcohol use: Not Currently Drug use: Never Sexual activity: Defer Other Topics Concern Caffeine Use No Social History Narrative Not on file Social Determinants of Health Financial Resource Strain: Not on file Food Insecurity: Not on file Transportation Needs: Not on file Physical Activity: Not on file Stress: Not on file Social Connections: Not on file Interpersonal Safety: Not on file Review of Systems Review of Systems Constitutional: Negative for fever, malaise/fatigue, weight gain and weight loss. HENT: Negative for nosebleeds. Eyes: Negative for blurred vision and double vision. Vascular: Negative for asymmetric leg edema, claudication, lower extremity wounds or ulcers and varicose veins. Respiratory: Negative for cough, shortness of breath and wheezing. Hematologic/Lymphatic: Negative for bleeding problem. Does not bruise/bleed easily. Skin: Negative for color change and rash. Musculoskeletal: Negative for joint swelling and muscle weakness. Gastrointestinal: Negative for change in bowel habit and hematochezia. Genitourinary: Negative for hematuria. Neurological: Negative for dizziness, headaches, light-headedness, loss of balance, numbness and tremors. Psychiatric/Behavioral: Negative for depression. The patient is not nervous/anxious. Allergic/Immunologic: Negative for environmental allergies. CARDIOVASCULAR: Please review HPI. Physical Examination General appearance: Alert, oriented and cooperative. In no acute distress. Skin: Warm and dry to touch. Head: Normocephalic, without obvious abnormality, atraumatic. Eyes: Conjunctivae unremarkable, EOM intact. Neck: No JVD Respiratory: Clear to auscultation bilaterally, no use of accessory muscles. Cardiovascular: RRR with normal S1 and S2 with no murmurs. Musculoskeletal: No peripheral edema. Neurologic: Oriented to time, person and place, affect appropriate. No focal/major motor defects noted. Psychiatric: Appropriate mood, memory and judgement. VITAL SIGNS: BP 116/80 Pulse 61 Ht 190.5 cm (6' 3 ) Wt (!) 175.1 kg (386 lb) SpO2 95% BMI 48.25 kg/m No orders of the defined types were placed in this encounter. There are no discontinued medications. IMPRESSIONS/PLAN 1. Cardiac pacemaker - Device Interrogation; Future 2. Morbid obesity with BMI of 40.0-44.9, adult ([facility]) 3. Complete heart block ([facility]) Intermittent complete heart block s/p [employer] dual-chamber pacemaker implanted 2020 Device check today shows DDD 60/130. AP 27%, RV 8%. Stable threshold. Battery remaining 11 years. One NST event, patient asymptomatic. Brief AT episodes. Does have home monitor. Will continue remote checks. Chronic HFpEF Morbid obesity Chronic lymphedema \ Patient doing well from cardiovascular standpoint. No concerning symptoms. Lymphedema at baseline. Follow-up in 1 year, sooner if needed Patient was seen when Dr. Swartz was present and immediately available in office suite. TODAYS ORDERS Orders Placed This Encounter Procedures Device Interrogation FOLLOW UP Return in about 1 year (around 05/14/2024). PCP: LESLY MELCHOR MD Referring Physician: Lesly Melchor MD [address] [place] [id number] LATISHA Harman 05/14/23 1202 documented in this encounter [facility] 05-14-2023 History of Present illness Narrative I agree with the findings in the scanned document. documented in this encounter [facility] 01-11-2023 Note Entered by Yousuf Pierce on January 11, 2023 07:51:29 EDT From: Ana Pierce To: [facility] Sent: 01/11/2023 07:51:29 EDT Subject: Medication Management Submitted: Complete:rivaroxaban (Xarelto 20 mg oral tablet) Signed by Ana Pierce 01/11/2023 07:51:00 EDT Approved with modifications: rivaroxaban (XARELTO 20 MG TABLET 20 Tablet) TAKE 1 TABLET BY MOUTH IN THE EVENING WITH MEALS Qty: 30 tab(s) Days Supply: 30 Refills: 10 Substitutions Allowed Route To Pharmacy - [facility] Signed by Ana Pierce Patient matched by Ana Pierce on 01/11/2023 07:51:09 EDT --------- From: [facility] To: KAREN ZAPATA, LESLY To MD Sent: January 10, 2023 5:18:47 PM CDT Subject: Medication Management Due: January 11, 2023 1:31:05 PM CDT On Hold Pending Signature Dispensed Drug: rivaroxaban (Xarelto 20 mg oral tablet), TAKE 1 TABLET BY MOUTH IN THE EVENING WITH MEALS Quantity: 30 tab(s) Days Supply: 30 Refills: 10 Substitutions Allowed Notes from Pharmacy: --------- [facility] 09-05-2022 Note Entered by Yousuf Pierce on September 05, 2022 11:29:14 EDT From: Ana Pierce To: [id number] Sent: 09/05/2022 11:29:14 EDT Subject: Medication Management Not Approved: duplicate acetaminophen-oxycodone (OXYCODONE-ACETAMINOPHEN 5-325) take 1 tablet by mouth every 6 hours if needed for pain TO LAST 30 DAYS Qty: 120 tab(s) Days Supply: 30 Refills: 0 Substitutions Allowed Route To Pharmacy - [facility] #[id number] Note from Pharmacy: september fill 06/09/2022 Signed by Ana Pierce Patient matched by Ana Pierce on 09/05/2022 08:01:00 EDT --------- From: [id number] To: KAREN ZAPATA, LESLY To MD Sent: September 04, 2022 5:05:40 PM CDT Subject: Medication Management Due: September 05, 2022 7:22:23 AM CDT On Hold Pending Signature Drug: acetaminophen-oxycodone (Percocet 5 mg-325 mg oral tablet), 1 tab(s) PO q6hr (int),PRN:as needed for pain,Instr:To last 30 days Quantity: 120 tab(s) Days Supply: 30 Refills: 0 Substitutions Allowed Notes from Pharmacy: may fill 06/09/2022 Dispensed Drug: acetaminophen-oxycodone (acetaminophen-oxycodone 325 mg-5 mg oral tablet), take 1 tablet by mouth every 6 hours if needed for pain TO LAST 30 DAYS Quantity: 120 tab(s) Days Supply: 30 Refills: 0 Substitutions Allowed Notes from Pharmacy: september fill 06/09/2022 --------- [facility] 06-02-2019 History of Present illness Narrative Verified with Dr. Shearer, not treating hypoglycemia dt pt being asymptomatic. Protien at bedside and pt educated to continue drinking it. Surgery Progress Note PATIENT NAME: Yrn Ricardo TODAY'S DATE: 06/02/2019, 6:43 AM SUBJECTIVE: Pt S+E. No acute events overnight. Tolerating water and protein. Denies CP, SOB, fevers, and chills. Denies nausea and vomiting. Patient is ambulating. OBJECTIVE: VITALS: BP 137/75 Pulse 72 Temp 96.9 F (36.1 C) (Temporal) Resp 16 Ht 6' 3 (1.905 m) Wt (!) 425 lb 14.9 oz (193.2 kg) SpO2 90% BMI 53.24 kg/m INTAKE/OUTPUT: Intake/Output Summary (Last 24 hours) at 06/02/2019 0687 Last data filed at 06/02/2019 0457 Gross per 24 hour Intake 3056 ml Output 1175 ml Net 1881 ml PHYSICAL EXAM Constitutional: Vital signs are normal. The patient appears well-developed and well-nourished. HEENT: Head: Normocephalic. Atraumatic Eyes: pupils are equal and reactive. No scleral icterus is present. Neck: No mass and no thyromegaly present. Cardiovascular: Normal rate, regular rhythm, S1 normal and S2 normal. Bilateral pulses present. Pulmonary/Chest: Effort normal and breath sounds normal. No retractions. Abdominal: Soft. Incisions look fine. Tender at incisions. Musculoskeletal: Right lower leg: Normal. No tenderness and no edema. Left lower leg: Normal. No tenderness and no edema. Lymphadenopathy: No cervical adenopathy, No Exrtemity Adenopathy. Neurological: The patient is alert and oriented. Moving all four extremities equally, sensation grossly intact bilateral. Skin: Skin is warm, dry and intact. POD #1 Robotic Sleeve Gastrectomy - Water and Protein - OOB, ambulate, IS - pain control - d/c later today Patient seen and examined. Agree with above assessment plan. Doing well today. Tolerating water and protein. Okay to go home today. Pt blood sugar 64, pt asymptomatic at this time. Will continue to monitor. Notified [facility] [place] of blood glucose via phone, stated you don't need to give him anything Pt educated to continue to drink the protien Pt tolerating water without nausea or increased pain Pt voided 150ml pt baldder scanned for 167 ml continue to monitor Dr Shearer stated notified if Bladder scan greater than 300ml st cath Smoking Cessation - topics covered [] Health Risks [] Benefits of Quitting [] Smoking Cessation [x] Patient has no history of tobacco use per note in significant history. [] Patient is former smoker per note in significant history. Patient quit in [x] No need for tobacco cessation education. [] Booklet given [] Patient verbalizes understanding. [] Patient denies need for tobacco cessation education. [] Unable to meet with patient today. Will follow up as able. SHAWN NICHOLS 1:03 PM documented in this encounter [employer] Phone: Evaluation note Diagnosis History of pulmonary embolism Personal history of pulmonary embolism Hx of deep venous thrombosis Personal history of venous thrombosis and embolism documented in this encounter [employer] Phone: evaluation note* Diagnosis S/P laparoscopic sleeve gastrectomy- Primary documented in this encounter [employer] Phone: evaluation note* Diagnosis Cardiac pacemaker- Primary Cardiac pacemaker in situ Morbid obesity with BMI of 40.0-44.9, adult (CMS-HCC) Complete heart block (CMS-HCC) Atrioventricular block, complete documented in this encounter [facility] note* Diagnosis Cardiac pacemaker- Primary Cardiac pacemaker in situ [facility] Instructions* Stewart Golden DO - 06/02/2019 Discharge Instructions for Bariatric Surgery You had a Laparoscopic Sleeve Gastrectomy (16597) to treat obesity. Recovery from this surgery can take several weeks and requires permanent lifestyle changes. What You Will Need Protein Supplements Bariatric Vitamins Abdominal Binder Incentive spirometer (a breathing device) Home Care It is important to keep the incisions clean and dry to promote healing. Shower with soap and rinse and dry thoroughly. If incisions are oozing, you may cover with clean gauze. Use the incentive spirometer every couple of hours. This is to make sure you are breathing deeply and keeping the air sacs within your lungs as open as possible to prevent respiratory problems. Diet It is important to follow the diet progression very closely in order to prevent complications. When arriving home, follow the Phase 1 Liquid Diet for two weeks. Dehydration and changes in bowel habits can occur after surgery. Refer to your educational binder provided pre-op for additional information. Once you move to solids, food must be chewed well. When making food choices, you'll need to ensure adequate protein intake, while avoiding sweets and fatty foods. Eating too much or too quickly can cause vomiting or intense pain under your breastbone. Most people quickly learn how much food they can tolerate. Physical Activity When home, we recommend that you take frequent walks, as tolerated, to prevent complications and increase your endurance. Ask your doctor when you will be able to return to work. You may need to wait 2- [address] you are no longer using pain medications Do not lift anything over ten pounds for 4 weeks. Medications Remember to avoid aspirin, aspirin-containing products, and nonsteroidal anti- inflammatory drugs (NSAIDs, such as ibuprofen, naproxen, etc.). If you were taking these medications before the procedure, and had to stop, ask your doctor when you can resume taking them. Be sure to review your medications with your primary care provider at yourfollow up office visit. Lifestyle Changes Changing your diet and level of activity are the biggest lifestyle changes associated with your success. Be aware that you may have emotional ups and downs after this surgery. Follow-up Follow up with your primary care physician in one week. Follow up with Dr. Shearer in one week. If you don't already have a scheduled appointment, please call the office at [phone]. Call Your Doctor If Any of the Following Occurs Monitor your recovery once you leave the hospital. If any of the following occur, call your doctor: Signs of infection, including fever above 100.5F Redness, swelling, increasing pain, excessive bleeding, or any discharge from the incision site Persistent nausea and/or vomiting Pain that you can't control with the medications you've been given Shortness of breath and/or chest pain Tachycardia (racing heart sensation) unrelieved by rest Pain, redness and/or swelling in your feet or legs Sudden onset of severe left shoulder pain or severe abdominal pain Any symptoms that are causing you concern In case of an emergency, call 911 immediately. * Attachments The following attachments cannot be sent through Care Everywhere. * Enoxaparin (Lovenox) (Mexican) * enoxaparin (Mexican) documented in this encounter[employer] Phone: InstructionsNot on filedocumented in this encounter [facility] SystemInstructionsNot on filedocumented in this encounter [facility] Summary Purpose Family History No Family History Records FoundNo Family History Records FoundNo Family History Records FoundNo Family History Records FoundNo Family History Records Found Advance Directives No Advanced Directives Records FoundDocuments on File Type Date Recorded Patient Strapper Expl anation ACP-Advance Directive ACP-Power of Clinic Administrator Latest Code Status on File Code Status Date Activated Date Inactivated Comments Full Code 06/01/2019 12:33 PM 06/02/2019 3:05 PM Documents on File Type Date Recorded Patient Strapper Expl anation Advance Directives and Living Will Power of Clinic Administrator Documents on File Type Date Recorded Patient Strapper Expl anation Advance Directives and Living Will Power of Clinic Administrator Latest Code Status on File Code Status Date Activated Date Inactivated Comments Full Code 06/01/2019 12:33 PM Reason for Referral Status Reason Specialty Diagnoses / Procedures Referred By Contact Referred To Contact Pending Review Radiology Diagnoses History of pulmonary embolism Hx of deep venous thrombosis Procedures VL DUP LOWER EXTREMITY VENOUS BILATERAL Consuelo Delgadillo MD [address] [place] [address] Specialty Diagnoses / Procedures Referred By Contac t Referred To Contact Diagnoses Cardiac pacemaker Procedures Device Interrogation IlyaistOlaf dalton, GUEST RELATIONS OFFICER-LAB PACK CHEMIST [address] [place] [address] Referral ID Status Reason Start Date Expiration Date V isits Requested Visits Authorized [id number] Pending Review 05/14/2023 05/13/2024 1 1 Additional Source Comments (unrecognized sect ion and content) No Status Records FoundNo Status Records FoundNo Status Records FoundNo Status Records FoundNo Status Records Found INFORMATION SOURCE (unrecogn ized section and content) DATE CREATED AUTHOR 07/14/2019 [facility] DATE CREATED AUTHOR AUTHOR'S ORGANIZ ATION 02/11/2021 [facility] DATE CREATED AUTHOR AUTHOR'S ORGANIZ ATION 05/19/2023 [facility] DATE CREATED AUTHOR AUTHOR'S ORGANIZ ATION 08/26/2023 [facility] DATE CREATED AUTHOR AUTHOR'S ORGANIZ ATION 09/07/2023 [facility] Reason for Visit (unrecogniz ed section and content) Status Reason Specialty Diagnoses / Procedures Referred By Contact Referred To Contact Pending Review Radiology Diagnoses History of pulmonary embolism Hx of deep venous thrombosis Procedures VL DUP LOWER EXTREMITY VENOUS BILATERAL Consuelo Delgadillo MD [address] [place] [address] Status Reason Specialty Diagnoses / Procedures Referre d By Contact Referred To Contact Diagnoses Obesity OBESITY, HYPERTENSION, COPD, HYPOTHYROIDISM, LIPODEMIA Procedures NV LAP, DHARMESH RESTRICT PROC, LONGITUDINAL GASTRECTOMY XI ROBOTIC LAPAROSCOPIC GASTRECTOMY SLEEVE, ENDOSEAL Serafin Shearer MD [address] [place] [address] [facility] Reason Comments Device Check Reason Comments Device Check Care Teams (unrecognized sec tion and content) Fish Seiner Relationship Specialty Start Date End Date Lesly Melchor MD [address] [place] [id number] PCP - General 02/10/16 Fish Seiner Relationship Specialty Start Date End Date Lesly Melchor MD [address] [place] [id number] PCP - General 02/10/16 FOR RECORDS PERTAINING TO PATIENTS WHO ARE OR HAVE BEEN ENROLLED IN A CHEMICAL DEPENDENCY/SUBSTANCEABUSE PROGRAM, SOME INFORMATION MAY BE OMITTED. This clinical summary was aggregated from multiple sources. Caution should be exercised in using it in the provision of clinical care. This summary normalizes information from multiple sources, and as a consequence, information in this document may materially change the coding, format and clinical context of patient data. In addition, data may be omitted in some cases. CLINICAL DECISIONS SHOULD BE BASED ON THE PRIMARY CLINICAL RECORDS. [facility] [employer] [facility]. provides no warranty or guarantee of the accuracy or completeness of information in this document.
== END 2023-09-09 11:19 | disposition home or self-care (01) ==
LOC: VC 11:18
PROVIDERS: PCP Radiology Diagnostic Radiology; Visit Provider Radiology Diagnostic Radiology
DX: I80.01 Phlebitis and thrombophlebitis of superficial vessels of right lower extremity (principal)
CPT/HCPCS: 93971; G0463

== ENCOUNTER 2023-09-17 08:53 | Outpatient (OUT) | payer MEDICARE, MEDICAID, SELFPAY ==
--- NOTE | 2023-09-17 09:08 | VEIN_ITS ---
[address] [address] Patient Name: YRN RICARDO MRN: [id number] date: 1960 Sex: M Assigned Patient Location: Current Patient Location: Accession/Order Number: [id number] Exam Date: 09/17/2023 09:20 Report Date: 09/17/2023 11:47 At the request of: LEONID SCOTT Procedure: VC Endovenous Ablation 1VeinLT EXAMINATION: VC Endovenous Ablation 1VeinLT HISTORY: I83.813 Pain due to varicose veins of bilateral legs The risks and benefits of the procedure had been previously discussed, and were rediscussed at length. Informed written consent was obtained. Catalina Baker RN and Estefania Dhaliwal RDMS, RVT assisted. Time out procedure was performed. The left lower extremity was prepared and draped in the usual sterile fashion to allow knee flexion in the sterile field. Duplex ultrasound probe was draped in a sterile cover, sterile transmission gel was used. Venous mapping was performed with the areas of dilation and large tributaries marked. The total length was 75 cm from the entry 3 cm above the ankle to 3 cm below the Saphenofemoral junction. The diameter of the left great saphenous vein ranged from 11.0 mm. A 30 gauge needle and 1% buffered lidocaine was used to anesthetize the entry site. A 4 mm incision was made with a scalpel and the saphenous vein was entered percutaneously under direct ultrasound guidance with a micropuncture set, a single stick was successful in gaining access. A micro-guide wire was inserted and the needle removed. A micro-set including a dilator was inserted over the microwire and the needle and dilator were removed. A guide wire was inserted through the micro-set and guided through the saphenous vein to the saphenofemoral junction. The dilator was removed and an introducer sheath was inserted over the wire until the end of the sheath entered the saphenofemoral junction. The dilator and wire were removed and the 600 micron fiber was introduced and placed and positioned so that it extended beyond the sheath and was 3 cm distal to the saphenofemoral or saphenopopliteal junction. Final position of the fiber was determined by ultrasound guidance and duplex imaging. Tumescent anesthetic was delivered by ultrasound guidance. 500 cc of fluid was delivered along the entire course of the saphenous vein. The solution consisted of 1000 cc of normal saline with 40 mL of 1% lidocaine and 20 mL of sodium bicarbonate. A final positioning check was made. The energy source was turned on by means of the foot pedal and the fiber and sheath were withdrawn. The total number of Joules delivered was 3529. The laser was active for 441 seconds under continuous pulse, average laser use of 8 J. Laser start time: 10:16 AM Laser stop time: 10:24 AM Date: 09/17/2023. A duplex ultrasound revealed compressibility and flow at the saphenofemoral junction immediately after the procedure. Hemostasis at the access site was achieved. The skin incision of the saphenous vein was closed with a 4 x 4. A compression stocking was applied. Postop instructions were given. A follow up appointment was recommended and scheduled. The patient tolerated the procedure well. Electronically authenticated by: MARCO LYNN Date: 09/17/2023 11:47
[2023-09-17] MEDS: LIDOCAINE HCL 1% 100 MG/10 ML MDV INJ (09:28)
[2023-09-17] MEDS: 0.9 % SODIUM CHLORIDE 500 ML, LIDOCAINE HCL 20 ML, SODIUM BICARBONATE 10 MEQ INJ (09:29)
== END 2023-09-17 08:54 | disposition home or self-care (01) ==
LOC: VC 09:07
PROVIDERS: PCP Radiology Diagnostic Radiology; Visit Provider Radiology Diagnostic Radiology
DX: I83.813 Varicose veins of bilateral lower extremities with pain (principal)
CPT/HCPCS: 36478

== ENCOUNTER 2023-09-24 08:54 | Outpatient (OUT) | payer MEDICARE, MEDICAID, SELFPAY ==
--- NOTE | 2023-09-24 08:56 | VEIN_ITS ---
Patient Name: YRN RICARDO MR#: [id number] : 1960 Exam Date: 09/24/2023 Ordering Doctor: DR LEONID SCOTT M.D. RADIOLOGY REPORT PROCEDURE: [facility] EST LMTD VEIN CENTER - OFFICE VISIT FOLLOW UP COMPARISON: [facility], 09/09/2023. PROGRESS NOTES: The patient reports improvement in leg symptoms. There has been interval reduction in varicosities. The patient has followed our recommendations to walk 20-30 minutes once or twice per day since the procedure. Physical exam demonstrates decrease in varicosities of the leg. Persistent varicosities are identified along the legs bilaterally. Review of the ultrasound performed the same day demonstrates occlusive thrombus extending throughout the treated vein(s), see separate report, consistent with a successful ablation. No thrombus extending into or beyond the saphenofemoral junction. The patient expressed a desire to proceed with treatment of remaining incompetent varicosities. The patient was informed that treatment was a process and would require several procedures/sessions. [facility] IMPRESSION: 1. Successful ablation of the left great saphenous vein(s). 2. Persistent varicose veins and lower extremity symptoms. PLAN: Endovenous laser ablation of right small saphenous vein. Nurse notes, history and physical were reviewed and confirmed, see attached forms. The nurse was present throughout the physical exam and consultation Dictated by: Herman Patiño M.D. on 09/24/2023 at 10:13 Approved by: Herman Patiño M.D. on 09/24/2023 at 10:13
--- NOTE | 2023-09-24 08:56 | VEIN_ITS ---
Patient Name: YRN RICARDO MR#: [id number] : 1960 Exam Date: 09/24/2023 Ordering Doctor: DR LEONID SCOTT M.D. RADIOLOGY REPORT PROCEDURE: VC EXT VENOUS LT LIMITED COMPARISON: None. INDICATIONS: Phlebitis of superficial veins of lt lower extremity I80.02 TECHNIQUE: Lower extremity nuñez scale and Duplex Doppler evaluation of the deep venous system from the inguinal ligament through the calf veins. FINDINGS: REGION: Left lower extremity. THROMBI: Negative for DVT. Heat induced thrombus visualized 3.0 cm from the SFJ. The heat induced thrombus extends from groin to distal calf. COMPRESSIBILITY: Non-compressible segments corresponding to thrombus FLOW: Areas of no flow corresponding to thrombus OTHER: CONCLUSION: 1. Successful post ablation occlusion of left great saphenous vein. Dictated by: Herman Patiño M.D. on 09/24/2023 at 10:12 Approved by: Herman Patiño M.D. on 09/24/2023 at 10:13
== END 2023-09-24 08:55 | disposition home or self-care (01) ==
LOC: VC 08:54
PROVIDERS: PCP Radiology Diagnostic Radiology; Visit Provider Radiology Diagnostic Radiology
DX: I80.02 Phlebitis and thrombophlebitis of superficial vessels of left lower extremity (principal)
CPT/HCPCS: 93971; G0463

== ENCOUNTER 2023-10-08 09:39 | Outpatient (OUT) | payer MEDICARE, MEDICAID, SELFPAY ==
--- NOTE | 2023-10-08 09:39 | VEIN_ITS ---
The [address] [address] Patient Name: YRN RICARDO MRN: [id number] date: 1960 Sex: M Assigned Patient Location: Current Patient Location: Accession/Order Number: [id number] Exam Date: 10/08/2023 09:45 Report Date: 10/08/2023 13:27 At the request of: LEONID SCOTT Procedure: VC Endovenous Ablation 1VeinRT EXAMINATION: VC Endovenous Ablation 1VeinRT HISTORY: I83.813 Pain due to varicose veins of bilateral legs The risks and benefits of the procedure had been previously discussed, and were rediscussed at length. Informed written consent was obtained. Wild Slade RN and Estefania Dhaliwal RDMS, RVT assisted. Time out procedure was performed. The right lower extremity was prepared and draped in the usual sterile fashion to allow knee flexion in the sterile field. Duplex ultrasound probe was draped in a sterile cover, sterile transmission gel was used. Venous mapping was performed with the areas of dilation and large tributaries marked. The total length was 39 cm from the entry 3 cm above the ankle to 3 cm below the Saphenopopliteal junction. The diameter of the right small saphenous vein ranged from 5.8 mm. A 30 gauge needle and 1% buffered lidocaine was used to anesthetize the entry site. A 4 mm incision was made with a scalpel and the saphenous vein was entered percutaneously under direct ultrasound guidance with a micropuncture set, a single stick was successful in gaining access. A micro-guide wire was inserted and the needle removed. A micro-set including a dilator was inserted over the microwire and the needle and dilator were removed. A guide wire was inserted through the micro-set and guided through the saphenous vein to the saphenofemoral junction. The dilator was removed and an introducer sheath was inserted over the wire until the end of the sheath entered the saphenofemoral junction. The dilator and wire were removed and the 600 micron fiber was introduced and placed and positioned so that it extended beyond the sheath and was 3 cm distal to the saphenofemoral or saphenopopliteal junction. Final position of the fiber was determined by ultrasound guidance and duplex imaging. Tumescent anesthetic was delivered by ultrasound guidance. 175 cc of fluid was delivered along the entire course of the saphenous vein. The solution consisted of 1000 cc of normal saline with 40 mL of 1% lidocaine and 20 mL of sodium bicarbonate. A final positioning check was made. The energy source was turned on by means of the foot pedal and the fiber and sheath were withdrawn. The total number of Joules delivered was 1872. The laser was active for 234 seconds under continuous pulse, average laser use of 8 J. Laser start time: 10:34 AM Laser stop time: 10:38 AM Date: 10/08/2023. A duplex ultrasound revealed compressibility and flow at the saphenofemoral junction immediately after the procedure. Hemostasis at the access site was achieved. The skin incision of the saphenous vein was closed with a 4 x 4. A compression stocking was applied. Postop instructions were given. A follow up appointment was recommended and scheduled. The patient tolerated the procedure well. Electronically authenticated by: MARCO LYNN Date: 10/08/2023 13:27
[2023-10-08] MEDS: 0.9 % SODIUM CHLORIDE 500 ML, LIDOCAINE HCL 20 ML, SODIUM BICARBONATE 10 MEQ INJ (09:43)
[2023-10-08] MEDS: LIDOCAINE HCL 1% 100 MG/10 ML MDV INJ (09:44)
== END 2023-10-08 09:40 | disposition home or self-care (01) ==
LOC: VC 09:39
PROVIDERS: PCP Radiology Diagnostic Radiology; Visit Provider Radiology Diagnostic Radiology
DX: I83.813 Varicose veins of bilateral lower extremities with pain (principal)
CPT/HCPCS: 36478

== ENCOUNTER 2023-10-15 10:50 | Outpatient (OUT) | payer MEDICARE, MEDICAID, SELFPAY ==
--- NOTE | 2023-10-15 10:52 | VEIN_ITS ---
Patient Name: YRN RICARDO MR#: [id number] : 1960 Exam Date: 10/15/2023 Ordering Doctor: DR TRINO ISRAEL M.D. RADIOLOGY REPORT PROCEDURE: [facility] EST LMTD VEIN CENTER - OFFICE VISIT FOLLOW UP COMPARISON: [facility] EST [facility], 09/24/2023. [facility] EST [facility], 09/09/2023. PROGRESS NOTES: The patient reports no significant problems following intravenous laser ablation of the right small saphenous vein. The patient did not have any problems following the procedure. The patient did wear his compression stockings. The patient has tried exercised to the best of his ability. Physical exam demonstrates marked reduction in swelling skin thickening and erythema of the right leg compared to his initial presenting exam. A healing venous stasis ulceration is noted on the posterior mid calf, markedly improved. The small saphenous vein cannot be palpated likely related to patient body habitus. No erythema or warmth to suggest cellulitis or thrombophlebitis Review of the ultrasound performed the same day demonstrates occlusive thrombus extending throughout the treated right small saphenous vein which was a thigh extension period no deep vein thrombus. The patient expressed a desire to proceed with treatment of incompetent left small saphenous vein with intravenous laser ablation. VEIN/[facility] EST LMTD IMPRESSION: 1. Successful ablation of the right small saphenous vein 2. Persistent incompetent left small saphenous vein. PLAN: Intravenous laser ablation left small saphenous vein Nurse notes, history and physical were reviewed and confirmed, see attached forms. The nurse was present throughout the physical exam and consultation Dictated by: Trino Israel MD on 10/15/2023 at 11:45 Approved by: Trino Israel MD on 10/15/2023 at 12:14
--- NOTE | 2023-10-15 10:52 | VEIN_ITS ---
Patient Name: YRN RICARDO MR#: [id number] : 1960 Exam Date: 10/15/2023 Ordering Doctor: DR TRINO ISRAEL M.D. RADIOLOGY REPORT PROCEDURE: VC EXT VENOUS RT LMTD COMPARISON: [facility] EXT VENOUS RT LMTD, 09/09/2023. INDICATIONS: Phlebitis of superficial veins of rt lower extremity I80.01 TECHNIQUE: Lower extremity nuñez scale and Duplex Doppler evaluation of the deep venous system from the inguinal ligament through the calf veins. FINDINGS: REGION: Right lower extremity. THROMBI: Negative for DVT. Thigh extension SSV visualized with heat induced thrombus arising at prox calf and extending through distal calf. COMPRESSIBILITY: Non-compressible segments corresponding to thrombus FLOW: Areas of no flow corresponding to thrombus CONCLUSION: Post ablation occlusion of the right small saphenous vein, thigh extension. No deep vein thrombus Dictated by: Trino Israel MD on 10/15/2023 at 11:30 Approved by: Trino Israel MD on 10/15/2023 at 11:31
== END 2023-10-15 10:51 | disposition home or self-care (01) ==
LOC: VC 10:50
PROVIDERS: PCP Radiology Diagnostic Radiology; Visit Provider Radiology Diagnostic Radiology
DX: I80.01 Phlebitis and thrombophlebitis of superficial vessels of right lower extremity (principal)
CPT/HCPCS: 93971; G0463

== ENCOUNTER 2023-10-24 09:28 | Outpatient (OUT) | payer MEDICARE, MEDICAID, SELFPAY ==
[2023-10-24] MEDS: LIDOCAINE HCL 1% 100 MG/10 ML MDV INJ (09:28)
[2023-10-24] MEDS: 0.9 % SODIUM CHLORIDE 500 ML, LIDOCAINE HCL 20 ML, SODIUM BICARBONATE 10 MEQ INJ (09:33)
--- NOTE | 2023-10-24 09:34 | VEIN_ITS ---
[address] [address] Patient Name: YRN RICARDO MRN: [id number] date: 1960 Sex: M Assigned Patient Location: Current Patient Location: Accession/Order Number: [id number] Exam Date: 10/24/2023 09:40 Report Date: 10/24/2023 15:30 At the request of: LEONID SCOTT Procedure: VC Endovenous Ablation 1VeinLT EXAMINATION: VC Endovenous Ablation 1VeinLT HISTORY: Pain due to varicose veins of bilateral legs I83.813 The risks and benefits of the procedure had been previously discussed, and were rediscussed at length. Informed written consent was obtained. Wild Slade RN and Estefania Dhaliwal RDMS, RVT assisted. Time out procedure was performed. The left lower extremity was prepared and draped in the usual sterile fashion to allow knee flexion in the sterile field. Duplex ultrasound probe was draped in a sterile cover, sterile transmission gel was used. Venous mapping was performed with the areas of dilation and large tributaries marked. The total length was 37 cm from the entry 3 cm above the ankle to just proximal to its penetration below the fascial plane into the musculature. The diameter of the left small saphenous vein ranged from 6.5 mm. A 30 gauge needle and 1% buffered lidocaine was used to anesthetize the entry site. A 4 mm incision was made with a scalpel and the saphenous vein was entered percutaneously under direct ultrasound guidance with a micropuncture set, a single stick was successful in gaining access. A micro-guide wire was inserted and the needle removed. A micro-set including a dilator was inserted over the microwire and the needle and dilator were removed. A guide wire was inserted through the micro-set and guided through the saphenous vein to the saphenofemoral junction. The dilator was removed and an introducer sheath was inserted over the wire until the end of the sheath entered the saphenofemoral junction. The dilator and wire were removed and the 600 micron fiber was introduced and placed and positioned so that it extended beyond the sheath and was 3 cm distal to the saphenofemoral or saphenopopliteal junction. Final position of the fiber was determined by ultrasound guidance and duplex imaging. Tumescent anesthetic was delivered by ultrasound guidance. 150 cc of fluid was delivered along the entire course of the saphenous vein. The solution consisted of 1000 cc of normal saline with 40 mL of 1% lidocaine and 20 mL of sodium bicarbonate. A final positioning check was made. The energy source was turned on by means of the foot pedal and the fiber and sheath were withdrawn. The total number of Joules delivered was 2280. The laser was active for 285 seconds under continuous pulse, average laser use of 8 J. Laser start time: 10:19 AM Laser stop time: 10:23 AM Date: 10/24/2023. A duplex ultrasound revealed compressibility and flow at the saphenofemoral junction immediately after the procedure. Hemostasis at the access site was achieved. The skin incision of the saphenous vein was closed with a 4 x 4. A compression stocking was applied. Postop instructions were given. A follow up appointment was recommended and scheduled. The patient tolerated the procedure well. Electronically authenticated by: MARCO LYNN Date: 10/24/2023 15:30
--- OUTSIDE RECORDS SUMMARY | 2023-10-24 09:41 | XMS_ITS | CCD ---
Author Organization [facility] Inform ion [facility] Care Team Providers Care Salon/Spa Manager Name Role Phone SERAFIN SHEARER Referring Unavailable LESLY MELCHOR Primary Care Unavailable SERAFIN SHEARER Referring Unavailable LESLY MELCHOR Primary Care Unavailable SERAFIN SHEARER Admitting Unavailable SERAFIN SHEARER Attending Unavailable LESLY MELCHOR Primary Care Unavailable Lesly Melchor Primary Care Provider [phone] AMARJIT DELGADILLO Referring Unavailable LESLY MELCHOR Primary Care Unavailable Lesly Melchor Primary Care Provider [phone] Lesly Melchor MD Primary Care Provider [phone] LESLY MELCHOR Referring Unavailable LESLY MELCHOR Primary Care Unavailable CARLA CAIN Attending Unavailab LESLY Concepcion Referring Unavailable LESLY MELCHOR Primary Care Unavailable Melo Quiñones Admitting Unavailab Melo Frederick Attending Unavailab Lesly Concepcion Primary Care Unavailable Dolce, Srinivas R Attending Unavailable Ankita, Srinivas R Admitting Unavailable LESLY MELCHOR MD Primary Care Unavailable PETER Redmond Attending Unavailable PETER Redmond Admitting Unavailable LESLY MELCHOR MD Primary Care Unavailable Dolce, Srinivas R Attending Unavailable Dolmegan, Srinivas R Admitting Unavailable LESLY MELCHOR MD Primary Care Unavailable Dolce, Srinivas R Admitting Unavailable Dolce, Srinivas R Attending Unavailable LESLY MELCHOR MD Primary Care Unavailable PETER Redmond Admitting Unavailable PETER Redmond Attending Unavailable LESLY MELCHOR MD Primary Care Unavailable Dolce, Srinivas R Attending Unavailable Dolce, Srinivas R Admitting Unavailable KAREN ZAPATA, LESLY To Primary Care Unavailable KAREN ZAPATA, LESLY To Primary Care Unavailable Lamarca, Ai Attending Unavailable Lamarca, Ai Admitting Unavailable Dolce, Srinivas R Attending Unavailable Dolce, Srinivas R Admitting Unavailable KAREN ZAPATA, LESLY To Primary Care Unavailable PETER Redmond Admitting Unavailable PETER Redmond Attending Unavailable KAREN ZAPATA, LESLY To Primary Care Unavailable Dolce, Srinivas R Admitting Unavailable Dolce, Srinivas R Attending Unavailable KAREN ZAPATA, LESLY To Primary Care Unavailable Dolce, Srinivas R Admitting Unavailable Dolce, Srinivas R Attending Unavailable KAREN ZAPATA, LESLY To Primary Care Unavailable PETER Redmond Admitting Unavailable PETER Redmond Attending Unavailable KAREN ZAPATA, LESLY To Primary Care Unavailable PETER Redmond Admitting Unavailable PETER Redmond Attending Unavailable KAREN ZAPATA, LESLY To Primary Care Unavailable PETER [place]mond[place] Admitting Unavailable PETER Redmond Attending Unavailable KAREN ZAPATA, LESLY To Primary Care Unavailable PETER Redmondine Admitting Unavailable PETER Redmond Attending Unavailable KAREN ZAPATA, LESLY To Primary Care Unavailable Dolce, Srinivas R Attending Unavailable Dolce, Srinivas R Admitting Unavailable KAREN ZAPATA, LESLY To Primary Care Unavailable Dolce, Srinivas R Attending Unavailable Dolce, Srinivas R Admitting Unavailable KAREN ZAPATA, LESLY To Primary Care Unavailable Dolce, Srinivas R Admitting Unavailable Dolce, Srinivas R Attending Unavailable KAREN ZAPATA, LESLY To Primary Care Unavailable KAREN ZAPATA, LESLY To Primary Care Unavailable Dolce, Srinivas R Admitting Unavailable Dolce, Srinivas R Attending Unavailable KAREN ZAPATA, LESLY To Primary Care Unavailable KAREN ZAPATA, LESLY To Primary Care Unavailable KAREN ZAPATA, LESLY To Attending Unavailable Dolce, Srinivas R Admitting Unavailable Dolce, Srinivas R Attending Unavailable KAREN ZAPATA, LESLY To Primary Care Unavailable KAREN ZAPATA, LESLY To Attending Unavailable KAREN ZAPATA, LESLY To Primary Care Unavailable KAREN ZAPATA, LESLY To Primary Care Unavailable KAREN ZAPATA, LESLY To Attending Unavailable KAREN ZAPATA, LESLY To Primary Care Unavailable KAREN ZAPATA, LESLY To Attending Unavailable KAREN ZAPATA, LESLY To Attending Unavailable KAREN ZAPATA, LESLY To Primary Care Unavailable PETER Redmond Admitting Unavailable KAREN ZAPATA, LESLY To Primary Care Unavailable PETER Redmond Attending Unavailable Dolce, Srinivas R Admitting Unavailable Dolce, Srinivas R Attending Unavailable KAREN ZAPATA, LESLY To Primary Care Unavailable PETER Redmond Attending Unavailable PETER Redmond Admitting Unavailable KAREN ZAPATA, LESLY To Primary Care Unavailable PETER [place]mond[place] Admitting Unavailable KAREN ZAPATA, LESLY To Primary Care Unavailable PETER Redmond Attending Unavailable KAREN ZAPATA, LESLY To Primary Care Unavailable PETER Redmond Attending Unavailable PETER Redmond Admitting Unavailable PETER [place]mond[place] Admitting Unavailable PETER Redmond Attending Unavailable KAREN ZAPATA, LESLY To Primary Care Unavailable PETER [place] Admitting Unavailable PETER Redmond Attending Unavailable KAREN ZAPATA, LESLY To Primary Care Unavailable Dolce, Srinivas R Attending Unavailable Dolce, Srinivas R Admitting Unavailable KAREN ZAPATA, LESLY To Primary Care Unavailable Dolce, Srinivas R Admitting Unavailable Dolce, Srinivas R Attending Unavailable KAREN ZAPATA, LESLY To Primary Care Unavailable Dolce, Srinivas R Attending Unavailable Dolce, Srinivas R Admitting Unavailable KAREN ZAPATA, LESLY To Primary Care Unavailable Allergies Allergy Classification Reported Allergen(s) Allergy Type Date of Onset Reaction(s) Facility Unclassified (1 source) No Known Medication Allergies; Translations: [No Known Medication Allergies] Propensity to adverse reactions to drug (disorder) [facility] Repository Medications Current Medications Medication Drug [...] hours as needed for pain. 0 Active [id number] 200 actuat albuterol 0.09 mg/actuat metered dose [...] aftercare (1 source) Drug therapy finding; Translations: [applique cutter (current) use of anticoagulants] Onset: 9 12-03-2018 [...] Interpretation Reference Range Facility Wound Care Noteon 10-21-2023 Wound Care Note [id number] #[id number] [facility] Coding Summaryon 10-16-2023 Coding Summary HTMLBase 64 OjvvikmaNIj1gZw+PGhl YWQ+XS6GFXNzC37kfUYu aY0vU6FYHOqBJfbvVQVP WBfKVoNgytEmVW4fwQIf ZXJu IC8+BI7pWEStUurkiEZj z5W0nXA0H73qty6jDRek hUP5CXLpMwRswamli8vd vQd7UXkvTtftLtHq CVFpuQ80XNY7wQ52Wx84 gPPczDApz3bzsLw6AuEi QQPpBOW6hJsmIQziz5Ln VDLzR48icTBhf4W2 IGNvbGxhcHNlOyBlbXB0 hO0eVAvdrqcui5tywwbg Clq1mn21pXUfi9L5rSE9 X5PzloI7XJKkrPWa RuzcpFJJfE5xdwiaz9zu enfyAqLdVMHxEBd3CZv9 RTCkgDkbFhBkNL89NCL8 IPRgtvMwG7UaPWDb pKmkEeT9u5Y1Si5HK7BN VmjlG1WLEHIJRYddfNY+ EH85qz11F0LrPwtaCun4 BRWxANB7rMZ5mA7f PJHnUNpji6O6eTV1P9Rq suWldu8ex6wjJVOfORdh J97jrSSam1L1MJIfrEN6 IILhxYmdVzRkgO36 Oyc+KFVrzZxaz0VrBhxw x1muk8xatHz1YuayWQVb zuVvuAjyYFC1u3GjJw8r ZCPeoTW0cWL9pD0p FjLnRgW7OGlpY562WgDd tJHcQfoaR10bF0PwlCM+ DJQsOgx0CDYfsCzwSL9y F8KlTZXsnnzwfEBz jVlsXA9vEENdktayQRCr nC0iGHOeV0u9UtNwFbX5 PWlhT1ErMLBeipatXi79 yH3rKqAxEvS0TNzf D7LrnmE8ZJUxjXIqVUbc SSN8C16tc1G3JGAaCQYi POR3lNW9fF1kvFiiyhrf bGVmdDsgdmVydGlj GLvkWIfxW342FKZeiMva PkNvZGluZyBEYXRlOiAg MDYvMTIvMjAyNDwvdGQ+ YCMhIAJ4jGlsOQBm qEZgINtdPi6hwQkhtLqa JY0sXUNcigvlCLYvpO9i QBCxhHXotSakWH0tMGPz qmyow972SaHwOCT9 VTKaiWIuQ1RksS1eUoDv SKXnZRXbJ8QufPBzMPix S665MCgqQkL2BBGzysPg G6LjJZBguAxlDtV1 q7H5Um4Bz8TgsvpnY9Ru qZCaMzUcIjhiCYq5S6Xz PjwvdHI+VI66NONlBE05 MNt9QJP6lBgzEAss LOCjV7NwrC0jWxXoSCKe ZGRkOyc+PHRhYmxlIHdp ZHRoPScxMDAlJyBzdHls LJ7yVs0rWLUkTLWe qFmtkYGwJrMbp7ybZSPa YMfcNJ0otWszP4XvfFX1 JVJtn1i6Sq47V62sQ6Kd dXA+HYCsdPP9dAH0 dC3gUmXwKdY7IVfnD334 JmQbmGAwWwlye5okq1ax yTp6MxI9HWNouzUebAyx JQZ2b9KnXr35D77k IHdpZHRoPSIxNSUiIHZh xKmjzu8gxN4gWz8+PGNv nGU8nOG3lD6gMlMmGfX0 TSnyH248AtPiwFJx Uprup0kcx3qiiPf5HzFo NNXotqJjgRfaCEP5u0Sg Te40J8XheEdup5MmItz2 sn80vTCei0O4gLW3 S8SaBWTcnxpetTMvkQzw CM1aMOXpwcejKOSdwV4k AQRnJ8b0GaAgVpC1GPbo T5ZceuL1YWOdjKBh CSLmnVYXwR0wrvvzd4ro ipzqZzSdJPVdACg3FWd8 YHJhcNiwJoOtWTM6AaB9 UQW1kGWkmS8mkHhp tshuqA6aEff+ITA9xOAw tHXJGA5aCnwxcFI+PHRk MIY0iZplOSkxKSXtyS0e LRRuR8f0VwAeNiH3 KEdnZ6McgnJ0PMDbaIOw YODceMULqC0prdora0uq lckmBlDhEPMdAEn8MEj2 LWFsaWduOiBsZWZ0 TeS4AGA5zHBwlE3lfVtx yxddeI8qQwv+QmlydGgg THP0TKl8G7YbFdj7ITIp zVtgMV6ghRUzLJym Hi8kdBtfoTppYS0vIWWl inmnk720KkNpr6atTVFn mQGhLMebBWD4Z01wq3U6 VFPlCGDjLTO8bII3 xP4bzTdoxnwzeJIgiTsk gjGfaPceYUtuRJckF438 UUZfnEnaXfVdCSl5R6Ex Jpu0GGEsaRmkLD1m oWVzFCcnDk3uuCbjgKzr VC4tHCMtgceho251PjFg m3weQYPtzTEcCTaaKZM0 G74fj8T6WXXfBQUd GWM1yKZ3sV6swRvokvky bGVmdDsgdmVydGljYWwt UFwmK118VMOjnBxxBxMd qPa6E6AoIyq3LURk gNzvTD2ixEYaPQdnDk2j pQefgOqlSO2cISVjuwil b922NiLgb0pgBDOaaITi AXopXZG5G23zn5G5 LNVqESEsYSF2oEF8xQ3r bGlnbjogbGVmdDsgdmVy cFvpZFfhWQyjW757NUJd cDsnPlBhdGllbnQg UCplWIw7G1RrYwjakXN+ MN85MLYoAX03oPNfoVUr g3jxlWg4DfTyECVkWWR5 oJdjAPtof0ExBZYz I58cgXAte0T2HMDnzDbf sISvQfJvlSQ0zK1hOBuf vgsvy3dwxwnnKjryw0zh tp95fI34Q81yNHtw ZHRoPSIzMCUiIHZhbGln fw4qlH5uBu5+PGNvbCB3 eFE3tE0oWSQpBgL2JUhr D901TnOmwTXnZyrj m9npn0cqvZh3SgC8KTMf skVqkYfeRPJ2i7GpWu51 E35pHGyoREXlFQUaUVLz MIAoiOvsok3orN0i Ii8+TSVjeFD4lHM8kU1c CvYgPhD5JGgxY382AkGz cVWmGetvX38jE9HoaAY+ ADSiLgz0GMFstFqh RW8feKFqIDpuPk1qKXC3 JuRpJxAoPTbvF5DbSBOh hbpilpmveWC0PKSnKDHa eK37Ao9gkZdhMOPu uJXJxR2rauztj7dnvwgy BiGjMMRjIMk9CFw2DFPe rNlnBwXqZDF6SrV7VFG0 qSOowX2ymTxyjuxh oT2cR8ZiOSCmyheaZi77 eO3uZnJbTpQ9PGjcHob+ P6KHCllzLC8YS6vLGCdi SzwvdGQ+PHRkIHN0 gIlfXDjeDQXjlV3nQITq K2k4QxDyIdD7ERrlP3Bv MIIqrdojAk44kT0aNjPi VmC3QQwwW0VrqhW4 KDYgmXIzWKdmFCY3E88u i1H7YNQxCMMwIBA0cPZ5 aR2ddTtrqycyhVItzAgq dmVydGljYWwtYWxp I458VYPvcArxIfMqCpM5 SdU0VsL9A8QqVaf2BJBk rFqnID1exQCpZObmDy2v oYuyhIwfEG1sJRKc fkbfXHKytM5aMYBirMZd jIfiBN0uADEmexkgn449 OlSrIGH7GXHnmVIqF1Xp kM2eGbWhIRZgHTMb I3GayFYhKPmaQ377YGbh XvX8WBOvrwJuA3PfVNRq kAibFgM1s4Q8Bq37IJLC ZWFyczwvdGQ+PHRk DTL1gEvhANxaYOUsoD9b QSRbO9b1BqEqMfA6IXzs H8RrFUQiseaqOf39hJ0n YgToKpK2PTexE5Lm nvK2LKSzaNVjMCscLFE9 J93ck6J2VBLhQAScSKS9 rNN9tD6icXtluasnsMGj dDsgdmVydGljYWwt BUszL802JOXjnPbnDf3C DIH7P2WlPid2IGIpsAfg TT4yjEWoDUasUb6byXla rVfqIC1tWJZrmvcs TESyaB8uYZXlnFVgaFmo PV0gMFYzphyve085PcFv NPA4FHKhqOLhY1IhtX0d EdTqODAtLOQdQ6Sn tABhRZarI812LKopWgA4 CGYbsqHrZ2UkZEQwrBua CdR3m3C8Xd4PECjpoMT+ BG71kh55T5JoXswi Zyb1NRJvPMG0yMA3lE7c UTIsGFlcs7N7uRH8M3Jm wfLhue8er4joRMQgFNdw I36zoFCuj6A4OVDn sRM6FZAmpGjhWlUqrA00 Oyc+JAMvuPnqh2VhNpzx m5upz5scwAq9AmNhWMEf wqBvuKbyTEN7g7Ez Gb67A48yWTnrTFVpNGPb ERXhVLFgnMbzzj0xbS0t Ii8+PQOgrCY1yVX9bQ3g QhKqPpQ7XFnsE114 QiCvmXLuSwgup5ock6lu tXi9HgJmICRziaCeyUta VLW0i8AkFj71Q3JiyVsi r7UlRgk2dx14pKPb m6A6fXU0X4VcLXKlhxof sSMsmWaoPU4tRWCvhiae SNEelZ7sQCKdJ8b7EmKb GzC0CKkhC7RnqsJ0 VLXowRYeKGHfsPMGqG7k abgfy7qksnipQaOqHOXg TZt4LBs8EWVbhGcwXlAg DNH9RyR9LJD9lBMf pZ2tjJtmkwbcfS8ySyx+ BNi6m1xmjTUnMA1dwAT0 BG32SG57dGGst6L1eNI5 Q8KeUHRchdeadzpl bFJ7ROXbSYWwjQ57Ee4o rKjxSd2xXFWuMEB4VXYc cKUcQ2JfmV6mLvZjXALk UAMfU4UcgXQzRSku Z707KTodOpU9XZOrxgGd W6ZoJKBhjOncZlT3s3R8 Dw1HYN42VH10FB18cOXe e1T4dWN1F1AlEZLu snqrpqcyjFY5OOXqMPAs hK22Ok2vwRepIk4rJVOm YRE0VITuoILtJ5CvlY5k QuIqAFTdWBAgV4Xb aPDhQPbzG150TVirZuI7 WKXqhuOcU5VtFLJoqDmu JuI1s0F2Hm6GRf43BZ79 NR46nQOpc3K1lWQ1 A2FfUPJslikglwylxHU4 COLyICVvsB90Sq2rcTtk Lk0gVTQmKZR8FBWxmNTs K0XtcW7sKkXoIWUa ZDVjM9ColZSqASqhS138 PChsDiW7YOMgsrTnI4Bh XRAcwDjzPdA0q6R6Cl9P RAnxnhj8D9BvNyfw dHI+BM11OMAhMM61aGHl lQOtn4lyxGd1CyCjBJOx VMM2kWguQSwkd4WgFPPa V09taEFue7C9KIVh bGx (more content not included)... [facility] Coding Summary HTMLBase 64 RznsoabkFSg1nQl+PGhl YWQ+ZS1VFFAsM64reVGz xM3gP0ELOFfBKpttKLBM COnDPxAjooEyWH0cmPNm ZXJu IC8+AT0hTSByDkuchIYj u5N5oTF8W80ids1nUVbo eGJ2SPUyNqHzrvcbn9vc hWv4KOjwUcmiBaZp BPRprY36JIK4jE79Rf43 lHWocLBpl5fpgKj8EgSy OCYdTHY5aUnlVCroh7Eb WUGrJ91ruSYdi6A3 IGNvbGxhcHNlOyBlbXB0 vH2iAIztlnnkw8lnjvvk Pvq3rg55dKGhb1L8hZH9 T2CbimA5FIValYQt MlnevXCLcU2amlpqj7cd kejnUeSdOCLhSTt9AAb7 XMLceXhuDpAkVY09IBH5 IWQuzdUmW5RpCCJh vQegUxZ9f8M8Pk8GW6JS CfikP8PKDUPPHIbwxXH+ TB29ir75Q2WjRuokSbr4 JCEmXVZ5cOS4mZ6d ZVSuMYwev8S2xSG4T4Dt idWfeh8ds4usOGHmWCxn S19rqXHjd3T7BAZhiGC8 AKQmlOvrAvVjxF78 Oyc+NTUlwRrdz8DqTtio q3vjk7kynVb5MavrMGTo wsUwtDopDYT3y6ZhAy2g REJfnAP7hCI7xO3a UyRmUyW5YGuhI233IlBc jDChTyeyV87iA7VvwAT+ TDZtVrb8PVMjxHokPC7q M8RhWPDpjgrskCCk cAuvZY3fJELkaxfrGWCm bF8gWNKuC5o7OiGpVtP6 WHcmS5JlJFZgrggsCs02 sZ0pFvNnFxU2PCxg T2WcdgU2PAKnmTDuCMgr FAP2I18rn0J2IAWbYFGb XDN2xQM0dB2ltPdhfelh bGVmdDsgdmVydGlj IExrGKcpZ313VHBbnErw PkNvZGluZyBEYXRlOiAg MDYvMTIvMjAyNDwvdGQ+ SYHaQVM8tXtaQKSa cCUwTPosAg3jfNophDwe QV3nDDPornkrHDMxiZ1h WMMldWZwcIltCA6mAVPh qddua842BsFtBWE0 BTRqtPGhW2EpjU6rXxNi MNOhPCUuP6MwfSHwCCev A582AUcrNeQ1TFAqepIz K8ImTHKbnZacFyT6 p0Y0Ae2Wp9TwndtgM6Jb uBQlUoWgKknaHDj1J1Px PjwvdHI+ZC53NBFoDJ49 FNs1KFZ9wCnlEEii JOSkH5LxqZ0yDrSmWPBf ZGRkOyc+PHRhYmxlIHdp ZHRoPScxMDAlJyBzdHls VT5bRt6vWAIbKZPk lHonmLVfGwJdf4hqXERm GAeiQW3jvVjoJ1PboEM2 DOKrj9u3Pw66H52dV9Tc dXA+PBOckPK9kVM5 jM8xWjNqIaG2ZEysD610 SgAosIHlJwqhc0iig7fs kNr7WjF2MLDkvtIcsBoc AUN8v7PkBx75J86n IHdpZHRoPSIxNSUiIHZh cNtasy5trW3aFk8+PGNv yAG7nXB1hW8hEfDcZpD5 RDetJ910XoHgsJLw Dusir4tvr9aawDj1HiFm NPBidaMufHnxTFN4m1Ox Ru63D0OuzOrvn2NgLca8 cn50tYZau5Z6hNW9 R1YxBZXtbaxhyYAjvBad GC2pIDVcdobdSELvhH9e CUToF0f2OlIcXeH9BAqr I2GzvwE2KWTlcSFd BJYhiNERqJ1blrpvq7jr wyuhHyJuIFReHWj8EEi0 FMOsqRzuLhIkQAE4PqZ8 AUV0wBXsrC4prInh ygdgvU1sTrq+VAD6cMGt mMKXNP5qGoagzQI+PHRk NOO5uTszLRypBEWyxE3b NUIbX4x9CnAkSeJ3 ICpvO7OklkE1GBUtwUHw MDUoyJFStI0fcwnhf0ik taajHiSeZCNdYQn7MOj6 LWFsaWduOiBsZWZ0 DuW7IIM1cDVduB9abXxu ctgloG9sAbi+QmlydGgg FCV9XOr4W5JwCee4FZXn hUigWO1ntCUyAVre Pf2isFnqmVphHK7hBDNe fspjg882CuRwh6ssFKWh bJWkAFksDXU4Z78eb7N7 CEJxQOOhZAS8tOD5 jK3ppTkbkgubmXTeySzi gxXmmIlzTKswVNziE256 MPVarAfdNuUkMWs3D5Ll Vfy4YTUxjBwsWZ3p bVEdNPbwXk9kzTcraHpq CI8xOXAwvmruk129RvUs a1wlKRCwaOKtANoaWFT6 F50bm5E0IPYiVTXu DPR2aJZ2xE4fpQwgqawq bGVmdDsgdmVydGljYWwt EVkrM191TIGzvHksMtYn xJk3W9CrMrm1VGZc rAbcMQ5jbWTjLNwvTa1y pYxywIhyUI2dZRDdsuih i008SxVsn1iaWAEftDLi IWorKMB0J66yh4E6 FHWwDJKkVKD9wGD5nR0n bGlnbjogbGVmdDsgdmVy yNacUNdyGUuhP950NWFt cDsnPlBhdGllbnQg ZQaxJJo9U9HcJaryeVT+ XI92EKNeKS07gSBmiURz a5shoPl6TzJsYVUhDDW4 iOauSIcai5ViBNXr S45qeLSry9Y5SFPesKmg tTTrCiRsqZF9tL6yNGeb atyne2iidmpwNmuhn7zu ek57aW61N31bVNye ZHRoPSIzMCUiIHZhbGln he0wtM4qEe1+PGNvbCB3 oWW2xU2eUTBdSmD6LXqu N453VdQheUUuRwcv f4qgf6lpmRh9ZjN9BLWm uwLhaCtePND0k2AvFs17 E99xHKwbXRRpFBSjXLJn QLMelUqrfj2jxM8n Ii8+BDQwxEP3lYG8cD6c VpQtIcI6HEimR299UyVi fPJhCkalR58nF7UwrGI+ TAKvWct2WDMwjStv GR5laGVgPBbbQz4iRYE1 SzKqCoUlLCutJ1RlIKXh atpzruihoNY6HBIwCIRm jE34Zd2foZkoXPWf gJROkV2oujmzb8aiupiw KoVoZEOfEAq5HCf3RPTp aYdbSoTiXSE3KeO0GYX3 cHYnmW4ijKheacpf nW8zL7UoRAJqzpscNu78 oK8qZgPjWvL7VUuwLga+ D7ZLWjqxLG5AB7mLSWwz SzwvdGQ+PHRkIHN0 aJehTDdcTITiaV8cCNEs V4u1GdMxYvQ1TDcaD8Sk QKCxkeyhRe96tB3cUnXi EwI2ITmdH2KttoC3 WUOzxDGqKSobFYV3X86f m4A1BIBaIVBkWNF6pDZ7 bM6puPgwylqclRQsnXoi dmVydGljYWwtYWxp E606DJCxqZoeUaZiVdE0 VyH5AxN2Q1PpBpe0AKKo mSmiPC3beFJaYXebIa1o rQbwsObsLD4oLEGl ylcoYDDrkW8uQNBtvNHm kHowXB2aQDBgamvys845 GuZxGDR1HETlvKAeI1Dc eP1wGmYkIWHyTLVy F5XrdZTvTUxiX463JNtn AmU2ZEZlvdBwI8ZsMIEh mMjoVeT7k7Q1On48XLMP ZWFyczwvdGQ+PHRk YOR3rPctQAdfSDHfsA4c TMQsF8u6QgOeBqP3GVkl O3EdHZZcbkmcAp62vY0p IzNvMiE9WQugM4Jv elA6ACAtrFMsDAtlYYD3 X36fk5F0ZDKoIWDbYDF8 dSA4cJ8yjUxbnjokpVEs dDsgdmVydGljYWwt BFzhF413FGLnvSttJt5K ANX7B7QoRvs1GUOzoXsl CW5mqOZdJDumDo6beNuq vDpyCW1iFECjwgaj KMBsdD3pIXFsdFAizCaz YZ1hTCHfnilna748GmEu NRM5BQGaaBBxH4LptO7j YvFxYDEfMHBaY4Zb uHNbPDgvG397DSwgDoO9 LVJnfgWyJ9LoEPGcqQkk RnW6y6Z9Ix8LBPgptUB+ SD11ph12S8WkYizk Ivm9ASRuFRI8bMD2jW4u FIBzRVhgy7F9yUO1B4Hw bhCgid6os8djFHGoLYoy A30xqYJga4Q4FNRx kGJ0OYAnoReuAmKzbF79 Oyc+BMMylRgtc4AcOavc k2mfp0ftiMh7TkXqQSJo nrVunUatHMH0r1Qd Sr38X24mMTjdGMEmGXGl EHPvMFMywGmtks3olH4z Ii8+AZBtzPE7pVL8cE6u DbKqPhK5UCvpD037 KaWynELbEofid7aho2qt xZm3IgPeERQvkdTrxExg LMI4e7VwIc47L5KysKjn u2FqAcg0pg50rUWq s0C2sSN2J7FdBKDfebbt yESbqWvzIU7uQGGyutri UQOkuF7aPYKrO6s4WeWh EyT9GGukM7ZupvK8 MUKkqNDuWQLqrUVCtT5u ejxzt3ftaewaPkXsITPu LVl5TRv9EKDpdItuZpSf SZM8TnQ2RKY9lKUk mQ5trWbmrcmtpN4bCfm+ EZj1t4jncXBiXA0avTW4 FR20CN60zOQhe5C1eHR9 P1CtYSSevpdxnvmx gAP6QIHnTAMbmS30Xl7d wWqxRm6oPHXnERW6QBUx xGBjD9LlpP3pDdFuDYAi NVUaW8WsrBAvPTbg I532LUejJyT7ECZkhaDg L5PkPLVigDyyIzV1e3B5 Yb9NTV88XT85QV30aCNv p8D5gDY3P0JbAFAs kwxviweanMM3WAYsEBOe sR04Bi7qyVtbGp2gSLKt QXC3JJMwxGGyE9JviH2n NmHiAFNtRQEzV2Rk lXRvSZocP797BIohGlK6 VCLnebHqV3HzLGKomBgl UwM2g9J9Cs9VJs30QP05 FF43qCEuh9K9rDN2 N0FjUZAsjvpqnkxhsVH4 YOLoBTBugN50Ne1ybTeu Vp6oWKBaWLB9PTSlvLCf S1DnzP0sFzTbASPh IBBkJ0LeaSKgNWbiV011 FKooOvF6PTShepJhJ1Ig LSQxtXjyJlS5l4W2Be6F NZqwuut1Z4KpGfed dHI+DR31EIWrCT92qOKo dMSlw1fmtBb0GyHnVDKq HWW3wZteSWusr1BnHICo O61ikUBzv7P5CVLd bGx (more content not included)... [facility] Wound Care Noteon 10-14-2023 Wound Care Note [phone] [id number] #[email or web address] [facility] Coding Summaryon 10-09-2023 Coding Summary HTMLBase 64 BqukzkadHUl3jIh+PGhl YWQ+TD1WADKnA28diIMr nQ4oY4MYTZuDTaozDJNQ LUoBTqVhwzLxAP1ipRYh ZXJu IC8+QR4mFGGzLxbwcJAc r1P1xVL6T68xmz1dZRtg nCC4HXVfYdSuhomdt5is qZx3CPifCygiJnYi EIWysI38PHZ2qN31Go53 eAQnuRUzo5ocwHc6UjVd QZAhYYW3oHjvEZmlb7Un INVtD18kmLFaw9I4 IGNvbGxhcHNlOyBlbXB0 qX8wFXszgccmq3xeweej Dsh8nx50wGXjy1S1mZY2 E4KiqiW9LNLtqRFa ZsjfqVVQfI3iplznc6py isdwAsRmYVBjCBa1MTp2 XRCiiIxdJsJoJV48AUP2 QXAezhBuK6EjKWVi oFquNlZ6d1B4In4TI2YX ZskbD4NACBMGSIsunFX+ AS07hm13T0SrNatqEel2 MDRmGKQ2dSS2lH7z WVKuSKwqy7M6dVL7X2Uw ktLbsu1xk0qoIOObMHgd X23jhDIlx2I3XCDqtAI6 DGWmtLxlMyDwiH33 Oyc+MCCjbLgym1LeRliz a0vqb5uisQa4BbnhCCBq zbAobXniGDN4w3GxWu5e GADejPA3bEO1gT1x FhVsMtD7TEmpA761ZfAu xICqUkeyG02uO2VjuFV+ IUTxNfh9VGHifQukNO1g A8VvFEUdsvjvfWCn tToaUU4cGSGdeydaIRJx rP3qPIMmG3f7XiAsHrR0 TDdwD7SbEOJvqlfnAy46 bM1bMmYkDhY9TWtr B4IwneY7EMGfzMBgMSlt UMY1A06yq6A7GFImSPGy GPH4gPQ3jH7qjUodowrc bGVmdDsgdmVydGlj TVzoQTrgC060PHWcsLxx PkNvZGluZyBEYXRlOiAg MDYvMDUvMjAyNDwvdGQ+ NUGlIZV6xCjxAKLz tBMyYJsyZk7hsKklwMeu EE7hWZEvkbgpWEXzhN2j EVLdsZPpsYdgUZ7eEEVr moijn502BdHjVSP8 IGStkAHpL9BvtG9aFlGt YVBcYZAjQ6JttLWwWGni U375CGwmLeE2VRWbatUc E0WxBVPllQcuTkE7 d3P8Cb1Nl8IixomzT9Xr wSCeLyPhWgngQLe6L6Yb PjwvdHI+EI38AOSeZB75 PJd9ZCH5oTfhVCga UJKeI9SifF2gQxXiZWQl ZGRkOyc+PHRhYmxlIHdp ZHRoPScxMDAlJyBzdHls ZK9tRs0bDLMiIYEp lElbxOEzExPts0kaEBWk COzbIF3oaHymG9IaxDG4 IEUhk9w1Re12Q84hC8Qn dXA+OAGcfYQ6dEV0 iD8qJgDnFmD2DYmrK844 BrBbjUYgTllqd1btn5fq oZf0KpO7NVDhgvEhpIxm GAC3t7HhSt64Q55s IHdpZHRoPSIxNSUiIHZh oDehhs5zsJ2dOr0+PGNv pPZ9oXZ3tS5iMuUxEgU2 QArrK571VnJwcIIk Cjukv9gou4amjBs8EsWj ACLfkbBgcWlmNPI6w4By Mw11G6VpjPilr4LiFgs6 ew07oLYgn3B2zSN4 W4MrZTRmlwddgSHiwRxz NP3yJSMtgczvAYYspS9a MUMjJ0x8YdNyDiS0QOuu O6SqczR1DNUhjWNd IKCaoQHDfC6jawmnr7yd iunaHiXvJGKzWQy6RLi1 HZRqfIgpKoKvQLP9LpQ6 SVU9qAYwgD1xbKdx uartwG3fDkh+SWP4tEYb jIHRBL8tYvhdsJI+PHRk YRR1bVfbGPodPNXvuH8x CONeM7j8JuLoSkY7 FViaX2ZaguL0TGDbkXEb WJJhwZZUbY9ufkhux9ss wrjeAmPaDMKlKIg5EWo7 LWFsaWduOiBsZWZ0 IpP0YGT9dXUlhD6keOqb fwehrB1kYhj+QmlydGgg ZVW6VZy1R0QwKzn7DOHt cPddOR4umAXkQSxr Wr4iwBxeqQgnUW3zENXw kvxat206FcVtg9kaSHIl yYXeWKraROS0G07tq2G3 TPNkMIJvKIK6dRI1 vA9gwJdlcjjtwQUvzVif dfUtjUutXJgySCykA755 SAVygTaqHqSvZYn4O7Il Gne4OYIhgGbyCX8a qLDxKDtiTg0gqZupqSzr DI2wCRGgtyfuo982ChKa a6alBXVmiAUyEUjqVIJ1 X99xw1F6UDWvYCCa HTQ6yAQ2tN9eaVndvmwf bGVmdDsgdmVydGljYWwt YHpwO479ZZDoiAyeXxGg iIe7G8SnOen2GMTf iVhvTJ9vuZUySUhpUw0n gNdxbSidIW9iYTRpxfwy q567TuAxr8obDVYzcEUj QQcyCNW9L25de0H7 OKAdQVEuLKF9qSS7lG3t bGlnbjogbGVmdDsgdmVy tSevNLqaWDgfB306RETb cDsnPlBhdGllbnQg DAmyVJz9X6AmJhemgHC+ JL35XSFoXX89iRFneFLt i8dnoZk0GpFhRSIyHKD0 tMyiFIctc5LjKSMj I43pjLWfv3D3IFPgbTjj oJIkZkJpeOF5vS8kNPvp sdqbv7ajhwiyNtqwq3ac qg05yY65S05mMUrc ZHRoPSIzMCUiIHZhbGln ul9tjE3rIt3+PGNvbCB3 gBF0rK7uIDKfEeW3XXhw P255KmHtnUKzCfnw p1jyx7vyaSd3MuS1PFTx mwExyTukZSV6a3FsTw21 P97bYQheVETxAJJmCAJf AQEfmQqvhu4pnT9f Ii8+IYVdwIA4bUM2qR8u VoGcRbB5URpcD771QhBg fRBfSfmyJ73yV9AhlAG+ AWRpSmr6WQLxyMzj BO9coONlCRpwMr2aWZS6 KnUkQqFiVWcjH1XwVUZo gzlyqbaoyJB4FDVnJIHs lA25Mj8peGbtYSGd bSTTuS9vslyxr4cpujxr CjAaBHXtEMo6CSq2AONl vZqjSmFkAYZ5WtD6IYX3 rPQnzN0euGzzxiph vH0cT0CvGONsqhlvRn82 fV4rTcHhGwA0FAzlVxv+ C0JLGktaPJ6MR0nJWBcq SzwvdGQ+PHRkIHN0 uZvxZBorNWDfcH3sRMNm N0u4KoAnCzR4WCsxQ0Jj HPUvknhdFx59sB0gOsTu VlU0SJytQ7DyzuQ0 YOFddXZaRZtaKRR8K86y m8D2UNSsJRGeVZM7xXC3 uG6bwGybtvlrmRHooZim dmVydGljYWwtYWxp X574UMOmiYvmOxNwSnE5 EsO7LuI1K0OaMqp0ZSHm uAreIP0riWHxJUazOz6q bSisyGrjQM7rTANq ncpnLNQriZ1nTUXzdUTt nQegPA6mWFEbpapju970 CjOxMJK6SAUcaAVzK7Ax gL2gRtZbEGZvDZUw G5HijBXeCZmfQ029CSex VkQ2KOMvoiKpG3IbRLLm iKxvUpN5a9W1Hg63YGJD ZWFyczwvdGQ+PHRk ETP0nXqhUPyhSSTwdD0k RVAcJ4x6LsTcTmZ3CYas S8OpOUSufwxcTf40cF4a ZyBvZyD5SRruV1Ys jeW3XEEdnBRjGHphRXP9 U77ea2V7LMHnCJGfXEW1 xCO6gG3apBrioudpzFSp dDsgdmVydGljYWwt LXolB788LLNygMgbGv3D NTE9W3TbReu1EJBulBhy XM6qtKLbKCfzGv6npLrn dAnlKR0mXRDmugmt AWBugT8dDDFwnZDojFbz JL9nQQCwciqdy467QcUe IMT3GVCtcDUpB7LiqR4u GhOtGGXrHBXuK7Hg hIAhJDvhV536EAoqNaR1 TTRgolCcE5KzBSIftTau MyK2s7R7Am5VYPnqeOM+ KG15yq05G6KrXrnl Wkl5ECGmVEB2yFK8qW2e GBFcKHaxo5V3kQH7O5Wg dgHrid7rm3lrQRDmPBpg V02vmMSrv9Y2HMNn oQH6VGTukIpcTyAhwI66 Oyc+GDQuuCcle4LzSwqb r9pae3vpfKc2YoNpYOIt jsFerSlbVVP8g0Xs Rv40C91cHMnsCITlGHUn MKFhOORrcAmrgl3tyL4o Ii8+PKTceFW1zPY8iE6y NkYlIvJ0ALroO272 MjNzeYRpRsgtz0yed3uc fXo1WfRuQYKefaSdzHvh EEJ6l8SyVl58G2CfeDgo k3ZdIue0fk03sGJo b3P0mHR3S3JgUGSjqggz cSRbsJxzXA2lQGWtjesk HBKwfO0nMAKvG6a9LiBv OpO8KUvjW6ImzjI7 ILTlcNGpSPYqbGFImM6w ozchz7qjomkjGtJeJENj RTa0BZy4VSYhlTpgByBo ZZY8IcQ2YBF7iOYx xN0csXishabvgX7oBnr+ CCr4u9aitGNjXH7muYB2 AB40WU31gCQcm1T2zPR7 C7IyBMJrelxctglj yCM8NLMvRNBtzD91Na3s gNcmQq8aYTTlLNB0IMOz xQJzC7IiaH3dKzOmUPXc GIEnA5IckBBqQRhk O411PQdvWoW3SNVfpaGs Q6HuPXQzyMidQlY6e7S1 Hi9EHE46BK32XU00wOWm e7R8eJP2P8DrSXQl fshneyekyGG2YPToZHTy iS02To7vsMugLl6yURUx HOG5CSGudVIoC1WssJ7b FiToAWYgOKZuK9Lg iFSdZYqhQ393ESfyTzL1 DKFfmhDnH6DnRIPzkGgn QuR3w3U4Qu2GRp89YK18 SW43zQApn4S2mJF5 M0RjKMPwbbfezwvveSK9 AEKeZCWwdH97Mz0vuFtk Bp0lJOUiBVD3WUFkdUUc Y4ZxzL0cYiAyOPXo OUHzQ7LjzIOoZVuaK553 DJypWmK9UGYlbtVjI2Ev WTCgzVfkRnK5m5X0Mr3C RUjeflj4G4FhNeuc dHI+HE52WXWhRA52xTLa nCRgb7cazFi3AxIxMPEp WNT9nXdjKYbmc6GuQHAt K87noHOgt7M6ZIXh bGx (more content not included)... [facility] Coding Summary HTMLBase 64 DlngmmmoJPh2bGl+PGhl YWQ+JC9PODBtU24vxJYg fN0vR7UDAYtTPrlwULEZ IQlNMpDschVeGP0bzSVu ZXJu IC8+IF2xIEXqUinjxWQf a5I0xDC7X18pxc1nSQkr pQZ7BLGxFhOjcifps4bd gRq5AJxySmyjGhGc LIXrhK33WYS4nI22Ze68 qQMzaTLnd6xvzXm0RfUg IFQkOEH1uJfaKFiry1Cj FSNmU66bxKXox9F5 IGNvbGxhcHNlOyBlbXB0 xT3oDHxalcxab9uuhzvk Fql2te49iIOyo1G5kNQ4 S6QrsqU0JYCmiXFe AznvqYTXxD2ennjjz3td hdrtBiMrCDLdMQd5SMw9 MJVwqBfkTvToWW73PXX5 PZIrkgGbW4AlAAYv dPedOfO3d4J5Sw1XR4BO UznaJ3VIUQIXFFymdOA+ LR06jk92R3FlZwsuWfa3 ZFNyRTY2sSK6gQ9b JJGsHOetm1P6aSQ1D2Ja lqKbpm7gs6hwMGWuJSbb I83ivBDti5O9HQMgoIZ7 MAQpaIxiHgSwpC82 Oyc+JPOxzYhez4RtNmeg y1ppx9jpkRu0GsluFAPq rdPrhJsoNFI6t5MqTo2n FXBklRV6uNP6fG6k StSbHpB2ZNmnX905QtIe cVMwIpbpH17oX5QnwHG+ OUXwUrv9XKUtzMbwIO8x S8FvSFRnvfgukPYi fTutIG6lXZOnjzhuBNBd nY9qUGCuG0z1TfHgHzJ8 HRxnU1RxZPDqicthHy10 fC9pLwTeOxW4UMyy G5SmohI5VSYdvNXdZPfx LYP3L18ex8T8LEPkEAPd VIN2qJZ7tS3meWamrszk bGVmdDsgdmVydGlj LBhwBKhmB443WORziWhg PkNvZGluZyBEYXRlOiAg MDYvMDUvMjAyNDwvdGQ+ LEClTNV4hZcaXNLa nKYuKPavYr9vwTpohDcv PP5jOZCguzfjCFJneA0m BIJffIYevMzaHT8jUSZz kxads102FbAfKNM6 WORsaAJuJ4VosH8gWcRb JSVpBNBmL6XdqJXyGKcz O015DKxbYjC0DEWzqkYp Y9XtOVBumWnkNwV1 z7H3Dn8Jt0HqbjflE8Lj wMEuOmDzRkuiWUe8B9Kt PjwvdHI+YM32UTQgMF02 YAg0MLA0rCcrIJlu JYZkB3WfmN5nXjSvTWUo ZGRkOyc+PHRhYmxlIHdp ZHRoPScxMDAlJyBzdHls WC5nDu2cTPQsCFKz kZxszSTqGpPld4zeZKGw SUxcJX2eaKeqS6RzqEM1 UUZdt1i7Fe11P24aR0Lb dXA+YHAqiUC8eUE3 hK0cQoFtOeS3TOdzM799 WvRgqAQmAvgjd4hbb8tq uKn2GyV7GWHwmhDgrRnn KNY7b9VdOd10H87d IHdpZHRoPSIxNSUiIHZh pUnlbp2qaZ4aWk1+PGNv zVP9vGC1kV3qYbBgIgB5 VFlvJ403NsHugALx Awyhq2cpu6hgrLu3GlYc LPVyvoZvyOtdCTP2f0Uy Xk92M3NnxOhar3InXes2 zh63gCCya8L6qRY7 T6CcPRPytobfbQAznEng EV5yXSVxrzbjYFYweY1d BVTdI3q5JiUfVgN2CWxi P7RvphE3PVQyuQLx UHTjeVDPaH1rntufj4dx elrvGzVwORYtABj8HUz8 KBBkiGckQwDeXUV8BiB2 CVF2oDLpkK2esMlm vkravT2fRgp+KYD5qMDb aQBQUR0fPotnpGC+PHRk DFC9cDmkAQviMGGjgH1t DHIdP3e7JtJaIkK3 ZXdwW9OkbhZ6VLGoiBRa YMRauQCLfO1eejpkz0gu oharGtBhPKZjMYq9OWa5 LWFsaWduOiBsZWZ0 MsO9IJB6sVEzoL5aeJso auyroV7tXpn+QmlydGgg QQE1QMa0A9HmDgo1JZKx oYptJC2juYVfFEqc Yc7jgWrubFiaAF2oQVRf qsbfg406IjEci1wvHBLv nKBlCPrlNVP2C28em7J6 IBRuROHbAMQ1sEP2 jZ5cdYowpdehfQGibNlm etQgtGjbUXzmKAhhA686 FTMqmRbrPiZnQEu6Q6Wn Aoj4QWYofFccRX8i dIUoXZlrRu9qfFwriTbb DS3dJDUlryrpr127KxMx q0mzSOYebOZwDVjxZKJ4 Q30ik4F8EYZlTBIa ZPV7gAU0eM9fhNuvomxh bGVmdDsgdmVydGljYWwt KFhiR052JBXguZstZuVs sRe0P4UoYdt3UELo gKbsGB0xdRTzMCgrVg7c jRfsxPfmWP4zYXAdvhhu h124KrXga2kgLHOstEUo HSnmAPK5W60hp1E1 VJEhEOAxAVS1dHJ1fL3t bGlnbjogbGVmdDsgdmVy rMekVOzlAOyhR846KHJf cDsnPlBhdGllbnQg VQlzIWn6V6YuMdrxtHX+ CV17OPCmFX48mZGdjBSd q9ycdGn9SkMhUKBuKBH6 pLhsYMoby1KrJWYw R98rvJNzg7B1NBAkqKai zFIbHaVsuSF9jY0sYTip ifrbg9dksxzzTcrzy5xn cn88wN22E22bGZhe ZHRoPSIzMCUiIHZhbGln wb7ctU8mJl4+PGNvbCB3 eSE9hU7pJXStMnR1UQhk G843TkVphFJkGbuk o8tth8dbwRg1RgM2QRLb coEihNsgJKT3s3SlJt68 U19nYBtqJDHaWIMtTWHr PUBpkNtijv4asZ1d Ii8+RCOrmYD2bQM2hH6b QqWwFcZ4TLyxO609AgPc lYBkFxwpT83kQ6IukAP+ FTQfPth2OTEgvWiy KZ9erKImQImaSb5lJXA2 ZrAjWeSrESxlA1YtNEQj hsyshywjpUN0JMOvISWs oS19Ng3llMyxSSSt mAPFtT8bxptqj9tkrrwk IbDdQVMhGMq9PQv6NBKe fUtyRnJeXID2TrM0ERE2 jYTegX6ybCgruwwr yY3rZ9HjXPHtxbvuGj74 wH0sBdZpRoX3ZCafMuz+ U1XTElghPV8JS0dMJEeb SzwvdGQ+PHRkIHN0 qOtnDJrsTAQesY9wDYBo A6l8BbVeQoU0YKjeT1Td OAQgzeomWn87qN9aOkRr DyU6SMtdC1EvnsW1 BFDmvQNqQBgvWVV0S14r l2R2MUZcEJGtIJR4eXX5 eN8waLvcgsnpgQTzpUwz dmVydGljYWwtYWxp G384SLUwaFphClAhZuA8 WhC3CcC7Z5ZtDso0XDEo iUhlQY9hqSIiDPwgTt4v uGnahTohOJ9hTGNd funhMLQcsB8jVXTmoAIh aVapJU3vKDHmmzwni508 CnNvSCU2SILlfMEwW9Do zC7hGlQgWSGzBWPz T0MdaMOsFZzhE192ECbs TnX1SPTxqhBoG6AuAXPl xSkvHtQ3q2E4Pq50SXWW ZWFyczwvdGQ+PHRk TOU9vGywWIcrYBXpnK1t TVAoV6q3HpXcJxV3VJjo X1KyAWXvfphxZe47eE1u XdYfWhF6XQfzX7Bi sbD9LTAlyHGeHGikXDT4 X07mt2W9DLMcLDHwZYG9 rKO4kE6czRskzrshjRXi dDsgdmVydGljYWwt CVlzT409KONzcFmqJn7E MVO0X7NnFrf2UJDwsKyx OR3ybKKzFLhsGz1otZmv nMdvVU4iKUHelfgf THFdrJ7bMTXmjJJcxQvb MB0cBQUcjvigd352KnDv KST6JVTnhGOlP4UxjL5n WhCrCADxDZJoD1Fy wQEsAJmdF019VZdeQyK1 OWKdfeGfB0YhVOSoaLfd TwG1e8W8Tp7YKRsexNA+ RW34ln80G5QhIyqj Xlg4MEJaCBM1kGI1kE3m MJUeQGeca0Q9uHI9J9Gl mxCcmi1iv1edBPRpIFcz G97euCDsq8G2MPRy fZK0PLKjvVajNxRucH32 Oyc+MSVvzKzul1ZmEaje j1yzl0nxcBz8YoWjKLSz mzSimLsdMIF7s1Bx Pn01U08hMLpyIVRoUNHh NWUkEKJokHewzb5dwW9p Ii8+IJEaeSK3cMC8qO7a OpNnAdP6PNugC091 ZzIgjGQyNizxx1nvx2mm tZt0SjNqQTIglrVqsWbq HFM4h0TwKk80A6PhnZxu n6ZdMha1an77rGAe a9A3wZD7D1VoYIQemuyc cBZdcNwvEE4fKKXnfnkj FGRvqZ1tTJWbB6u3VyBt QpA5QYyyD3QvzzH2 MSIsaZIdTHAkzQGFoJ6p opxrc4rphoemGuVaJCIx KLc0ILw2PUCldMlhBfEe VVY7VlJ5JTB4fOKw gZ6bbZhozwgnkA3uRdd+ FLh0p3twrYGsNS6kbFX0 UO98DN54bYVku7C9gTN3 K9QeOFVyrxqlanvz gIT1CVLhYGIpkV49Ga8r qIktXr3pKBAnWMK0MYDk jKPoZ0PulW7aQdArNQCm URVxC3IkgORiAAcf Q405AQnfMvD5TRNcxfTj B5MkHDFvvZfmMeK0d8S5 Uv1YZM63BD05MS94iGQy g6R3iZF2Y8AgQUOn ztmlkriibVJ4FZNlEMId gL07Yx2ibUvsQe9zBSXo PQK7HLYarCRaE4AbzC0b FeOuYTJmRJOfF9Rv lOGeIUkxA809IKckHcL5 RRFlmoSaA2GtTMNavRta XbH7j0O7Dy8ASl62LV09 QO11iRAyh6J5yMI0 U0NtPTZzmgimvwopwKD9 CIWoIVUlyY67Uo9zpUux Ck3uGUVhLRC0GIQpxAYa P0MobB5pChMuKAXs VJXjN4FesURmHBhvK743 PYfyYjX3ZLPmrrCeG7Eh TAKobXqpJzL3z2X8Ov8G SKnwvwo4K5BbQewj dHI+OI05MHLzKY16qGYg bGNkv3fduHc0AeXqPTYk YNP2aTykATefw5AwRTDm K32rqWAsf3I0SMMf bGx (more content not included)... [facility] Wound Care Noteon 10-01-2023 Wound Care Note [id number] [facility] Ambulatory Patient Summaryon 09-25-2023 Ambulatory Patient Summary [address], [facility] - Visit Summary For YRN RICARDO Age: 63 years Sex: MALE : 1960 Address: [address] [place] [address] [address] [place], [place], [facility] Home: Work: -- Primary Care Provider: LESLY MELCHOR MD Race: White Ethnicity: Not or Language: Argentine Health Plan: 1?[facility], 2?[facility], 3?[facility] Reason for Visit: Three month follow up for med refills Prescription Information: If you have been given a prescription for narcotics, seek immediate medical attention if you have any difficulty breathing or any sudden status changes such as confusion and sleepiness. If you or anyone you know is experiencing suicidal thoughts, mental health, alcohol and/or drug addiction problems; contact the [facility] Pending Sale To [facility] 26/11 Crisis Hotline -Text 4HOPE to [phone]. Follow-Up Information With: Address: When: KAREN ZAPATA, LESLY To [facility] [address] [place] [address] In 3 months With: Address: When: KAREN ZAPATA, LESLY To [facility] [address] [place] [address] In 3 months Future Appointments [facility] Appt. Date: 12/24/2023 2:15 PM Scheduled Provider: Lesly Melchor MD [address] [place] [address] [place], [address] Future Orders No future orders Additional Goals and Instructions: Vitals and Measurements this Visit (last charted value for your 09/25/2023 visit) Vital Signs This Visit Peripheral Pulse Rate: 66 bpm Pulse Site: Pulse Oximetry Systolic Blood Pressure: 110 mmHg Diastolic Blood Pressure: 60 mmHg Cuff Location: Left arm SpO2: 95 % Measurements This Visit Height/Length Measured: 190 cm Height/Length Measured (inches): 74.8 in Weight Measured: 170.4 kg Weight Measured (lbs): 375.667 lb Weight Dosin.400 kg BSA: 3 m2 Body Mass Index: 47.2 kg/m2 Olympia Body Weight Calculated: 84.047 kg BSA Measured: 3 m2 Diagnoses This Visit Osteoarthritis of knee (M17.10) Laboratory or Other Results This Visit (last charted value for your 09/25/2023 visit) No Laboratory or Other Results This [...] 3 Milliliter(2.5 Milligram) Nebulized inhalation every 6 hours. as needed for wheezing, 6 refills authorized ammonium lactate 12% topical cream (ammonium lactate topical) Take 1 chacho Topical (on the skin) once a day (at bedtime), 0 refills authorized calcium-vitamin D 500 mg-200 intl units oral tablet (calcium-vitamin D) Take 1 tab(s) Oral (given by mouth) 2 times per day, 0 refills authorized Instructions: ANA MARÍA [...] TAKE 1 TABLET BY MOUTH ONCE DAILY oxybutynin 10 mg/24 hr oral tablet, extended release (oxyBUTYnin) Take 1 tab(s) Oral (given by mouth) every day, Percocet 5 mg-325 mg oral tablet (acetaminophen-oxyco done) Take 1 tab(s) Oral (given by mouth) every 6 hours as needed for pain, 0 refills authorized Instructions: MUST LAST 30 DAYS Pulmicort Flexhaler 180 mcg/inh inhalation powder (budesonide) Take 1 puff(s) Inhale (breathe in) 2 times per day, 11 refills authorized Xarelto 20 mg oral tablet (rivaroxaban) Instructions: [...] oral tablet (acetaminophen) Take 2 tab(s)(650 Milligram) (more content not included)... [facility] Patient Handouton 09-25-2023 Patient Handout Orthopedics Osteoarthritis Osteoarthritis is a [...] walking or exercising. ? An inability to volcanologist items, twist your hand(s), or control the [...] aerobics, that increase your heart rate. ? Cpuja-tm-cnfqyt activities. These help your joints move more [...] area above the (more content not included)... Normal [facility] Coding Summaryon 09-20-2023 Coding Summary HTMLBase 64 AuxalbgtUWx8xMh+PGhl YWQ+DF0GQFMiD76fnBIk sW9kR2QLJAoRNoxsDSRZ CVjGHcZscxAsHM8elFCd ZXJu IC8+LT1vWHXsJrnvePPk r8I9tPF7W74wzr8dRXiw zEG6QWYaGhJsgwlpf9du sBh1RTsyCvleCyJc EDMhoM41CDX7mF83Ko70 iKLpmDKyi3zwnNh6EfTb DOTcAJT8mIaxOIcvg1Tm WZChW36paUEdk5G4 IGNvbGxhcHNlOyBlbXB0 fA2yTDwtysdqi2lwnwgp Ljt2wx80cGJcz3Y3mWB8 G4OuibB8WNVwtNHw AuhopQUOzV8hesble9mn vgloNxOjOBJjYQw2PPf0 SLIvtArwYjYsIB89OLC6 ETBhgvGyS5GyVIHi eHgzQmH6i0E6Xe8YW8ZX ZcitB2TRAPYGTSfjtHQ+ XI91eh84A0UvUezhSlr4 VCOnPKY8pEX8mJ7w TIJpZShli7O5eGK3S2Lq nhLnsi7df5uwIXJiSEao L61frAQyg7M7PLQfiUZ7 WZGukUffHlLlvQ90 Oyc+ZHWlaObyz4HvJsea m6yte6pwsBl8BspuEKOy bpLvfKerKOQ0r0XuVv1a GGImqTW2oHO1tX4f AeLwChQ2XPvmS876AtKu pAWwSabeZ93bN5NipMA+ SKRoWiw7EOBlfLfjYT9g F5JmFDXowygcvEPe iFhbFM4iXEAcpfhjHMEs yK0bHKWbQ1v0KuRkAsC4 ALsaZ9MdCUKxpqamUd29 mN9jZjMoRmG1PDeb D9WnejA2QZYnbSLdKCuv XNZ6U08av0T9CHXuYVUt CWB0hHN4rQ6kuBixmcyn bGVmdDsgdmVydGlj ZEhiGFmhZ496BHNqzAko PkNvZGluZyBEYXRlOiAg MDUvMTcvMjAyNDwvdGQ+ AYVlVTL7hIqeMLAq mIZbADeiAq3ecZwteFji RE1cNWFswqyxREWviS9l TCVdxBLqtAlyKG3kOWKf gscab300HgOaSKG5 UHNxtKOnI1GbfA5yGmHt EBJbVUSiI2NzhILrMQdy X785SLupPiX0YJWrczMy E2CqJNAsnCsiKdI9 n9J7Pq3Ll9AzamccQ1Ms fOSiUiCaUfhqBNo8Z2Rw PjwvdHI+RP65MRJfOZ67 LQq9WLB6zRhwDQyn OAQnW9GfgO9gSiRnZVYd ZGRkOyc+PHRhYmxlIHdp ZHRoPScxMDAlJyBzdHls EQ8gSx7qRXXoDASw zZoxmIEzGnIlj3sgLRPl JEllGU2szIqrK1DntBX4 CQOwd9a7Pw72B22xQ8Fo dXA+DFTgfLY7gQX1 hB8xRiEkVaO0EHzpM090 TyBqsGIxVigkz9dsp3lv sSo6LaQ4PRWipcZdxXch SHE5i9YvKv31M53r IHdpZHRoPSIxNSUiIHZh xLnwus2pxA1xHm5+PGNv kXX4hES6kH4oZiWsHbL9 ZQjsW257KgLxsNNb Cqaci8ibd9eifYf5XyVr AGBnmlBmgGjaBKU9t1Ft Mp98I9XsyRcek5ZtZdf4 jd73tHBtr8C1hKQ3 C2JhEEFvjaslxGCkvNnt XN9jLTJbeeoyPCMqwP1j RCUpX3x2EuJeRrV1DQuo M7ScdbE7INIzpRNk BZNinOHTjQ8iemyqr7ji sxleNmKvMAIrWFh9AOy4 HKQrtBfnScOcBMD0CtX3 QAH1xDQyaN1quYop kwlbjB0xEcu+DZE3sRIc nMDHKD0gVpxwxFY+PHRk QJY2lJvoXRudZSFrpP4f NSHfV6v8UbLdPbW7 OEpxW3LozpI3GNHexLNm PLSmnBMEtC2wnpwmx8dk kwpeThXyVGYeYZb2TMo2 LWFsaWduOiBsZWZ0 XtH5NKV5qQUngT7sjDjb rpnsbO6xTwb+QmlydGgg ZTA7UOu0P4HyVfe5XBLw eUndIW6myLNrSZqg Sx3coNmviFzuZF8uZXCq tswwt723WeTlk4gfEAFd eCQlOKwpGAC3V98ed1B5 KVGxAOWtGKT6xWE9 xH2nfJvbdpqgcFSlnKhw vfUotMvkUJjoCVrjH915 SJDcvFazXxWpJCc3U2Mj Gaj3VOLkmOzwAG8i pMQkEPveXe9wwAgqvPjc NF6nHANbbugyo631IdLp n5hpSPLmaWGpZZcuNRD2 I22dz2Y9JUPnJOIb KXY0bBV8yV1ysNesgtmr bGVmdDsgdmVydGljYWwt JXrqA276BBSsrXxiYvFj wBw7S2GrMfo7KNNd zRqmUI0lxYGcUCunGs4a tKtqmDbmES5oLOVttawy f013NvKxt7ieZANuxANj TNulTPD3W79ev6Z1 SHTrXPOjYWM8yJN2oO5o bGlnbjogbGVmdDsgdmVy qPlzAWytRFvbU667LOSc cDsnPlBhdGllbnQg NOgjTVt6V1PxEezicVS+ JT65MHHrFO57iQOpfVYm j4gmlAc0DhVwDBVdOSI5 eMbpJRlbi3KcXIOb C51igYEni4P5WWRtuApd hYNvJsMkpDH9jJ6zFVma chvrs3rochipNubos3ic cl96jD63U07wDJvw ZHRoPSIzMCUiIHZhbGln qv6tnS2rHp3+PGNvbCB3 nSU4mV8xYJWyWuY4DAvp R871RsGvaMSuAsur k3gih1rusYq6GcP8KWSn exBjaEwjCCR3w2GeMq81 S14kRRblFHLhDKDyXLOz BPKobIsiok7stM5f Ii8+IMFcnUC2yZL6wH6t McKfVrE0EKmeZ554PbKd eXPwUmfiR00bS4KsmXW+ UAZdOox5SARdsZqd VJ0juUBtFGyhQe4cCUR3 KoMfSrQoEOqgE8BsVQIn vmmozdkrbLE3ALOaUZZe zE21Cn2tqXgaIQFk xDETgA3aewvnu5zqdqja CkAjUYUyGZh1ESt5UTYs kAzpSzLlKFB2PgR5GUF2 uOKjeD5rrWqnpfkf oS0yF3NxSJQxvywlIj44 vN1hHiVkCiW3KObcBym+ U8XNOlcrMF8OM4cUCGeo SzwvdGQ+PHRkIHN0 yOqtXVhqAWTzlK0jRWYw M4g6JeFtBuX8RXmnV9Ne DRNygdsoYd67qH3nVvNs AyU2TIznN0FkptS6 UAEnnNNtSVhbGGR5V98i v6U0LIHmGWIbDXX1vUE7 jD1rfIccxlbhcOTmpSlr dmVydGljYWwtYWxp T124YUUhdLplLgFnCcT0 WkR3GaU8O6CvLhv8QJYd vWyxOP0upSQcYSnyQd4j xWthyPicSQ1vROOj rsrzJAGcvQ3hHJJrwZIb sMvvAQ6dUHCbczncl468 VmJuSDS2IFGmhRYpH7Sc oD9oMkMlTZVtXTVr Z2QeiMRvLVfiH755GGjo VhP8PAColkDxQ5NrAVYe wHgoWtD0c2D5St16ISBI ZWFyczwvdGQ+PHRk IAI0yCpgZTagSJRodS8x LXXdW5s7XkSpXqZ8XWeo Y8MqGWWikdvgXz10cA4g VuTiIdT0NCjdK1Du zuH2AHLceUHrVTsbXHW8 Y32hz5D7LBGsCVFrROY3 mBK0mH0wjPqznuefsEIa dDsgdmVydGljYWwt KHgsU009JQDfkKsgVf8F YXU3I6KqGpl5EZAvvGvc JH4gqTKzQWnlCd8hqHgm hWjnLY1jQFUinhqb JXKghN5aAUFgzQMoyXaf JH8iTNVknwljt037AcRx DNV3OMLecKNlD1NlfO8f GcNnXHHvLAXsB5Xe qNAhPUqnF994FCrwJgB8 KFBitoZyY2VmGYOlvAmv MaI2t4Y4Ui7MIRbjlYM+ WY06wz91A8DcKvtd Mvp1WHTdOPG1jIB1cS5d RSFgHQqdd6T8nOK2I5Za ntVaun0eo2pyEUQxCRno Z28ykSTkz2S6YAXw oES8ZFHumOumDkZpwB11 Oyc+VMRpkPkoj4FtXdjq u7zuc3onlTz2ZbUxTWRj voBhzHebXDB1o2Us Km70V55yKXiaQMBtHTDh LVLaOYLtwVhtuq3kxI6o Ii8+HMEetIG7aAG9kE6i CgOeRdZ4SEbqP097 SdVmjWAoUumkw2tyd4ra wVx6YaCnESVdufLvbNex QSZ4p8DzHl95J7ZifAzv j5NpUoq9xn25xXMp k3F0vSL5L8SrCCEwklla hEVkhAewQU0rAPYsgjnt NVEdkD4iGTPjW7v7MtCd VmW0UYxiB5WakdQ0 WXOwiGWmZDIymJPAbH3e ztzpv2xdvysyUcGoWVUl PPn4OGk9OOBskTjxWkRi AXF4KvL1UDK3dEAh oS5mpPmeawhsbV9dHlw+ ICz9s7mwlKJlNN0hyNM7 MU84YV78lZBom9M5rBE1 U3CuTYGapxbbnecg jZP4XMDvCNNxcV60Mx4k bPffYg6lEGTuLCA3MMBe wKEmV2PapL4zXlQsDVJm TSDeE0DdiWIfJHhx Q388OIoiXcT8SYVumiOv F2PzSYYkcOhySrT0f2O1 Pi7NGK94GN42UP02aLVs a2N0vCT8I7AxVIJo yjwxyhvftAG0XSTnRGYp bH62Sj3wgBqpIt9uAHDf OCA1UPVreEFzP4SabP8d IqSjLONwQPDnD2Vx wWBaGRjqZ729UVfnThQ5 MEUlvkMbR2YzVZSbfHsq GwO6w4F8Bj6ZEg85UK92 DX53nIHhx3I6tYW5 K4FoHYNtiuypfivxhXN2 RVPaPSGvcF68Ep5sqFfi Ne3gTQTjKFW1FQDvtRJn V8OluW6aJfKsAILn LQBhM0JenJZmMYogT983 ADfdMiG2UMMtkpIcC2Ty UQAdyPlcZqL2e9J1Bm8E TCcrpya4A5SrUbpk dHI+YE78XODuXS73bSHu dRKel1obuOa7InPeHITp YSC7tFfiJFmbp0EwCFRv T28jlVZng7H8FKUz bGx (more content not included)... [facility] Coding Summary HTMLBase 64 NghiubugAMk8aWd+PGhl YWQ+GM2JDNXxU37icBDg nY7bT9GYDWfTAatqRGAA XIbFPhMnkeCkCY9dpMDn ZXJu IC8+YE1jCCUfCvvhmDAu q8U2zXK1I13sek4zQVqv pSB4XJCrQfRfqcczw3iz oIe4KKpoRwalDhLf ANYfpQ82JPI7eL63Mt64 sCXzjGOkj8gtpGs3VlPg YPFiYHP9hOjaSNgdt7Dl YPJyE69twEZir4E1 IGNvbGxhcHNlOyBlbXB0 aH5gYTwdywtfg4tnvalc Kna9ok90mNHsk5G1dBE7 V3TukhZ1QUPxcBWe RuppjZMMnG3whcnct5gr gstjPhUiZBQhOIi1MYz6 CWCxfRtjDwStQC82HFV3 ELPtvvIbN5FhTTMx gUcqBeC2v9U2Gi1GQ2MN MgsaQ7HYXFWNUPxznDY+ YR78wu58W2DoYroqVjy8 FCYsZTF8xCD3eS3y GTGpKAukl2Q3hBK1Y9Eb czEjde3ln8vvVYHkLDxi D25rfKUed7P6QJCcbIV5 LEWhmEdqMdDcxB99 Oyc+IXRrhAhuv7BsJbaz h1mif6gysGd2KqajPTGl bjRjbFcrTNV8g5IjVn3s VDPglDI2cTW4dV2p NiStFpH6HYzxK096NlFr rEAfFyoiP73xT6IedMF+ LERiFpi9YUDfqGtjCI3s A7IkVLPjvferlGGr bWneMC5tVMQbthliJXWc oF3zYNRxA6m8EhZuUqK7 EWqpF8HfROTohdvcRs02 oC9eZgDiYrM8ECqp E7ZqmfS9SBRuqGYrIGgb MBQ2V50cl8M7ALMmHUUq KJZ4xUL8qF4dkBmhnquy bGVmdDsgdmVydGlj UMvrQHigV277VZDhyHko PkNvZGluZyBEYXRlOiAg MDUvMTcvMjAyNDwvdGQ+ OUGyMMF3aRveCBSi eOCrYIsvTp1zvSixwZjy LB6bKRVzwssuKCKplI4r DBRuuLAkxKglOX2hLYPm ocyce408UhHrVWQ8 GANcqIHbC8IssZ1xTdIh UKRcWZYuW4QsbMPjZCvp Q675UXagHoN2MASdseIy M4IfRAKsfUapJqY9 x1N2Kc4By2KggkydI2Tt kCFzIcYnXltdTRh7N3Jx PjwvdHI+PA14DKQzSB90 WLc2XES7vXzpRVse POMlF7AdjT3hJbApXTIj ZGRkOyc+PHRhYmxlIHdp ZHRoPScxMDAlJyBzdHls QM1gVr9mMTYmCRXl lWslbPEmPjHdn9cyHNBw AJqkDD5ecStpA5SppLF8 BELuy0i7Jc22R31xH9Aj dXA+BRGnlJG7fVP2 dW2iOqJnKnJ7RLexR586 IjIaaVRuWigqu1azn2sm tOh2DnE3YXDusgJbjZug ZXP9u3LwTv31W69s IHdpZHRoPSIxNSUiIHZh iShvzw1lzN1gNp5+PGNv lBJ9nKG0uH8oOlKgLzD0 IYmcX945TuAqvSYk Puavx0dpf6fjoHu7UdJg FTQhqsJtgDtxMCP0e6Sn Kw15O1ErwEkoy7BwDoo7 wc82gWWow5L5mDO0 W5UzAQBhzvenyAHvsAqh LO4kPONuqpscWFBiwP3q CNJkQ9h9XiJmZpK6ORfx Q1PhvpC8CEWjtYLt LXPycGCZxX6rlwvru6ik gxkhNvWmSUTjTOr7RBp2 NQVpmUvxJiIuZUZ5WiY2 FZG2uVDwkJ4wpSmr spgdsU1cPfn+ILQ9aKHa cIUXFS0eWscagJX+PHRk HTN4xAkwZUunRBHchJ0r XDExH0e8RxPvGoX9 STgzK9IzhlZ5TUInlBYn FBJnlFUMbV2mggsbb9zr hjpzFfYvGGFzLGs6XYq1 LWFsaWduOiBsZWZ0 AlK5ZBI6rHQrnT5btLsi lbedpY2cEtt+QmlydGgg YAD2HUm7U0FnZwe8NJYy vNdvWC2thLIrOKpo Oh3evVvimYmvWZ3eRSUo maydr940YhWqx5rlOHRi vTYtPMyhVIH8D23iy3M1 ASYbBNMfAGR4iEC8 wR0tzBeycsjjbDPwgOep ceKcmUlgCHnzQXapQ750 RGQpiCjpFjNdKIn5P2Jr Vli1ZQVweUkwXH3o oYLtASbzEg9odGfevEbd AI5jTVJcxlscn663MkYq v4zeLPAwvIQrMUowBIX1 R81bv1F2WVLyXDTp JLJ3mYF2nR1zsCvhbwlx bGVmdDsgdmVydGljYWwt PYcpK856LQLdhFkbWuZq wVj7A5RkQre3KWUg rRndNJ6bnWHrVBfzEu5d wZvypEzbYQ5rIORbdqzi i445QlIbd8yyOETjuYIt IYmnKXN4G76dj5J6 EEQlFJPyGFO1kOQ1zY5f bGlnbjogbGVmdDsgdmVy iXlmXIwnLWxaH325FRCj cDsnPlBhdGllbnQg PNbtOUp7P0HzMjtxaQZ+ YM00DGMfXY10qTBdhHQi z7akyDt6HuVcDNGePAV8 aGwsNXcrd0XtIOAl D82qbNPnf2J7GGLxkYms oBCmHdHkiRO6pN0fPPdf bsjpt4gyfbrfIdmrx5sl jr57xR16D04iIFqn ZHRoPSIzMCUiIHZhbGln xu8lpJ2fHk8+PGNvbCB3 yZD5lK4qVNNfKfV4BWpa L365KtQyiWBuLxnz t8fzz2lxuXh5SzT8EEUu tiNnqPqfJKF4p4CzAz62 T38sLZuiVHLhKFVcNQBo DJSntKedia6jeW6j Ii8+BWHwhLG8qKJ6uW3h ClOcEuM1KPfqT044YlXa pDZiHufaN24tY8DdgOJ+ QTWmMmd5SDNjqRbe FR5gzFTiMWsyEj1iQUR2 SgVuNnZbMVknZ2FaXJWp udrtkzorxSH0RGCdNQAu oH05Xj4nyNhsAMAo dQECoQ0oiwrng1qnhkwv CkXgZGQnLQq6BHy9DXJn jIonLfJeXNI6NjX1KUI2 wSIygP8jqSjnuxoh fC1dG0JoTKMqyragJp90 uQ6sPsUvZcQ6MEahUyc+ C9EXPtwaBH8AV6iSQGuv SzwvdGQ+PHRkIHN0 aNhqXHpzVUKuoJ9zOSJx E5r7OaTkWaB5TEbgH1Vw QAUndcnwIx41oO8lQdSv NaA3APexM5DwunT0 IRHreWXzQAdoONW0B60g d3P8EQOvEVXmJHN7xVN5 hP4cyUkeydvrsRNpvBwj dmVydGljYWwtYWxp I121QAPcyLogQlXaLoG8 TnH7HaE9E2EtObn0YCKk tDzmQE9thGCiUBsvFo4y pBkshFjfXC9mJMRe csqtUZQozY0gAFDnzSDr zUbcMS4wCLFbnjqde015 TaOdQOW2SFTesTVxB3Ip jJ2fRhOxRTDxJTZu Q9AcdKJlISbbA873YTuj AqE0GJAoxbFnD2DgYUXz qVtcSvZ7y4O7Qp55HRGZ ZWFyczwvdGQ+PHRk ZZK5wGubXCefJGDezF2i LWNxV8s8ZnSjSyC5DEkz H2PkKRHkoctyQx78xP5p LxAqIaS7YBwuE0Ow tgG8TEXqiOOgMMofHTX6 U47re8B2REHtZFFwUFW3 eER3uE6msKopmtadaXIw dDsgdmVydGljYWwt GTtqS134FCRgqIduXo7G PFN6K7SmOrf2NOFhvBlt KS7tnBSdAWkrPp6zuVfm hNyyQY4fEOFfskiz KEEqnT1hUCOmbDUlhKcy JQ1xULWfwtwpt357HhTh JDX3GZMkhXSfZ0DtvZ1f QbYiPPQaVLEtZ6Th rLTqYOzdL796RKfkOeD9 GQDfdeDbX2XzWNUpaWwc CnT3w9E2Yt0OJKbppIA+ NP56jk30I9ZsJvfy Tam5VKRhICU1cJC1oR4a PYJeJDync8H5bPL8Q4Dh caUsoj5ti7kuEKXqQJwc F91lbLIyi5K2AMIu lVK0XFCaeBxvTyYukK92 Oyc+XUMarUahk6YvYocm f9fwr1pklWp7FyZuSTAd eyArjNpdIKX8x8Qb Rl52C62pEMxdOKLxAJOk OKUqNCBvoGhzsp9hsY4a Ii8+NSKbhUW4iXI7lE1d UqDxXbM8JSglQ429 QdAywQEwTnubo9xtx5kb vCx7HrQgJTRwdhMhpHfx QYS6q9ZdTs90I1BvjIdx x9DbAbm6rp33fGUc y8V4jUK2H6SlZYEblgtg gRIphKqdQX5sSTGoxuqk FRXxcJ8rCIPrV4p6WhPk YqZ1VWdzI3CkpnO8 TGXwnDPePBYlzATRsM9r ojqvc6vwjuaiLiYhMORz LYx5IBg8XTQriDzxEqMr AHM4LtY0XSV6iEAi uM1soDgwdujypO8eSuf+ QXv9v0apoSBeCP7caJP3 KB79QT85mEHww0S1vKY6 R6YcZDRiydqenjqw pAT2ITRtJRSrjY04Rq6z qAiaVy3tPYMyRFP1SQSf lNVmW6LvzV2bNyAvMDEv NKAjB7WheSCaMAoq D424LGwyMlL0LBJfzsAo N0FfWZNirVqvHjB4c7I4 Pd6HGL76ZL67PU91iFNp y4C4mVZ8Q9HzJKGc zqdeiexpkUP5EQToCWXf bA22Kk9ppIvbTx3dWVSt DER4DVFnfCEaF3ZjhD1t HjQtHDJnTPZaT5Ee vWHhSJwvL406TSucCeV0 SUCdaiGxO1OiVSAdhSsl ZxN3j6X4Uh9DOj13FM84 RC89sXQua1H5qKM8 M1CcLNBvjwxyewjxoJG5 LUZbTGCmhF01Un1rqTep Eb6tXOMsYSV6AMPqhIBw V5JxaP2wYwRhLHYk CKJiD1EdtJTbSPwfY151 OBrpTpD8AYRhzeZdH6Dp ROVhlRfzShU6u4E4Kt9N SYdwfew1B5ZrIebr dHI+XS78PFTdLO87xPUs lNGcl3cmkKm7XkTuKNLa FSE0gPxoQHtqp6HnAVMx N70fbYZpr3P7ZVIa bGx (more content not included)... [facility] Coding Summary HTMLBase 64 JeewuzbpPMn0aKj+PGhl YWQ+EI7HSTCyZ30lbAWh dR5qZ2YFMZfJRqrmFFCV AQrMSiAsubZrSU0hfKEn ZXJu IC8+LG2eIUMhAenvfIOh e3Z8gJW5W78skd2yTIbr xTP8AKMlGyChcihim7bl xOh1GShbJmvqPaTr MVVvoP54ENY1wF88Mx03 cBCuqFQun7suhPs2KeLe YOQkDJN9iTeeAJujr4El LWPfU50ihCQss4J6 IGNvbGxhcHNlOyBlbXB0 rR6iWHrzubkbo3bfqbcx Otl5pr93qXZvt7S7uGB9 P7EgilR2DLGbeMXo GuqqpMLDmC0znpxid9tk urvbLtSwIDIeWWg1AJi2 QCRydUuzJfMoVZ96YGR3 RPAttzYhG5YzIJLe aZveXaN2y4G2Cy5VQ6DF MvofN0FNLHOMZDgqxAW+ SV88tz44E7MaYvanCwq5 RVWwDUS0gYS7mE1m SMNdGZbck5I2pFR4A9Pq jkVrjc0pd7elHBDxQDxk K02ijGOiu5Q8WLLvwAT0 WPQoiXfnYiEuwQ51 Oyc+MFDmfHzrz9WaUanj t4dtk1pgoEx7AvpaQJUa hhMakDhwJKW6y2CbJm4v VZPanGM9vLR5hX6j XmFiXlZ0IItdC350QxCp yJNoXcoqW40fI1KvpYA+ BPPiXdo5CQSiiXgbXK9s R6NjPLWgkduxqKIf dPmaEE7iMZQvyjqqBXKn qP2xDJNiI1d5BuCzGaQ1 BXcrZ7CiABCfyegqBm40 iE9mLsCkBjJ6XYht B8MiarH0JEGwiGWlNGaq WWL8D44ah6J1NTBwELHr OIQ8eUL9uD5paWvgcpbm bGVmdDsgdmVydGlj HBhsXUxwQ113HUBvbGak PkNvZGluZyBEYXRlOiAg MDUvMTcvMjAyNDwvdGQ+ HTJtPDR9hYatVMTm qIOdTEnzOl3xaCuehFlb VG7vQRDsipjoKMAioM1y VPFseHMnxZhrZX8yNMAg pondb657CiQiLFM8 BKIliGEyE2DyuM6gTsAp OJEyYMLqZ6XndTKoKIlj F726OXomKmB1NJAamfXj D4VjKOKcrIjjIsR9 u1W8Wu5Qw6YswzhcU6Ji aBLeYfJwTuzkNOo1T5So PjwvdHI+WU25ZGJfFZ72 EUm5FKC5qPpuMTyi EJKfP7PffW5dRtMnPWWp ZGRkOyc+PHRhYmxlIHdp ZHRoPScxMDAlJyBzdHls RJ5fJi2dVOKsNLYo qItrcXByDiEmm2xnFNYt MKqdJN6tyRsmO2EvtIM7 PZWlr7n9Fn76N05rV1Qb dXA+FMIxiHP6zFG8 jA4dUyNnYzF7RLqrN074 WrYzzBHaKmcla4qwy0gp zEy4EkH0TWKgvpDqlNne YLB4w6BgRy43T65l IHdpZHRoPSIxNSUiIHZh hRwnvx1mcG3tWg9+PGNv uEF6jDW1xC3fQrKuSiE0 FVruF134QrOmzOTr Tkdbw5yac0zsxYy8ZqVo VOPfpdWyiLkhPJD7s9Mq Ts27C2EzdUnnf7YeVhy5 jo69lWTkp6G8wZI9 V6NsIPVvjtvmyXTueBsw BQ4qPKTxycswOSCdjU2p RQYvU5a7KbQcWmK6XSos O7ZhbiM6UZBpfNEw SSFbfRPTkE0ljcmvc5fu ngctGeNdTJXhQJi5MJy0 NTLghXvoUcEdQHT7VbE5 FRQ9tXRunP6wqXkh ifayaZ0aJfb+ESU3kFUw mJPJOL6fUeuawYZ+PHRk EEF8kUzyHDdhQHCxnX6b WTSxW4m8EfRfYyV8 ZJcdS5LhbuL0CQKqeFZb NPNpmSZIuS9swuyty5cj jdcrVcEoRHTfSJm7QPn7 LWFsaWduOiBsZWZ0 JkT2SEX3gGVrtD4vgEoh iaccbG1aDxy+QmlydGgg EOJ6DOz4F2FyDmx8LCAm tOxoZH0yuUDjMEbn Tt5elSqjnAcsSV5uPVVh qiptp226LyKem9bsZYVo yGOqWCexAHG9F10pw1P0 FHFfNPPqGAR8eOS4 xA8zlDebprovvQZqqPde cwEqyJynAZhyMLlrY004 KAAndMmjShXfKCu9G0Bf Ree6CVIklVeeMI4c jNZeRKbsLl2vdYpfjHfn PN4yTOXqeldtl144HrLl w3feSFAvaVGcBNmeXZS8 R66sy0H1WKEvBGPu LNS8pCE8hX9poRvybgnj bGVmdDsgdmVydGljYWwt KQjgJ619VRBxlHwcPmIu bTm3J4NgMll2IMPm wVteRV9suTQdTDszEg7b zHkgaSicRO8tLZWwudku t535KfKsq7kvZDNpmRUy HWbnBCB9Q97yl5Y2 TAXaLCZkKFB4wYZ4yJ4h bGlnbjogbGVmdDsgdmVy qIrkHAkcADcoL311XYFm cDsnPlBhdGllbnQg NNtlTUp5Y7KyCdlhvUL+ WC30AWMePF00bEBtiPOd m7weiMx4HnWiJWWqTGH8 mDqkWCiud7QcNXZd S47mnYUfg3S9ZYTvtYmb jJUxNdSboEM9cY1tRGnp zirug5dofcfkGcvjt6il dc11wJ72B66rZCft ZHRoPSIzMCUiIHZhbGln an3bhW7uQr9+PGNvbCB3 fBI2aA1sSDRcEmD9VBaw U705KhCxaAHfOeji e0rhf3gokMe4QtR5YVRf tjSueVycTLC4c4QsVz49 P12ySXhvSXNgRGNmELIy PJJcxXgrov9fwL7d Ii8+FGOrjTR2fDC9wK0y AjHaBhB2DKwnD343RhZj qVEdQaiqN20aH7MtlEX+ WMSfDrp6SGZclCjp NU2anTIrJMnqGp4zSCC0 RoZsGsLiLYqzJ6AaZHCd fhocbuzkwPQ4LSMrWULe fX60Et1jmVedCMTl xSKVsJ2gmggbb0hcwrcy IzGcDEIlHSg7NBm9SKCx kYcdYiPmKEP4EpA2YIX1 rCRwaS7yjUwzpwuf pS4dB5ZuMJQojauiZn06 nG9uDnTjIcK6NWuuDzu+ V0MGGicsQW1LT7nXBAfm SzwvdGQ+PHRkIHN0 kHogBOzyGINbjY0mEVUi O1h2MuNkDcZ3CBidF7Nw NWGfvnlaZw98oE3fIgXh GsZ5NWaqY3XhmcX7 BGJslDYcOVymFDY5S21c n0U3YNJeVOCwPJU8aRO0 gU9bsXiiicbquBHbtBoy dmVydGljYWwtYWxp L955KFEvmXhfRyVpWiS0 KwG7PsH8U8AxCly5NQPa mMecKC1iaGNnWCweIg3z hXuglYwsHW9tFRGi sflxEZEeyA3nJDPoyJPi wIipQJ7tFCWogsjpz523 AlAoXJA7XMYgkAVzE2Rv vH3nRqDzAZEjUPBt V4CppRBzHFpwI360KOux MiB8TGKirjAzR5UgDLYi aRnqYaL7g6K9Js60WXYE ZWFyczwvdGQ+PHRk REL8yUozTOpaMSZtmM4p DJXvZ2q1SoTiJkS6HEij L1PwBLDohktfMr42iQ6f JyNxWoK6OCifU8Qd kzH5XXJwkAPnFGmiQXK2 D14yu3O1LSYwSUJtRZK2 uYQ8zS9esQotryqctBNm dDsgdmVydGljYWwt LTbsK578HUPisYrkNe1L GDX5Z3GkHum8FNPrtMcj QE9duNSeXIrmNg6loXif rTsfED2mAKYiykdu HDOpaB0mXAIuxBXphEfa TR0qKTSrnqlho272PxBs UDA8RJZsmSGtX9PksS9f OqVlNSLdJPBuC5Ut tUDzRQxoP445RCafCqI6 PKDprfShR0EaBEUsoUnm WzL6p5E5Km2OICfepAE+ TI45fh61U6LkZoyl Elp5RKQrOGK6qJT7eT1i QABbDHrdw1N4iYS9O4Mg pcEwgx9mx0zsNCOkLBwe K59vsLRbj2J4JVMl zMI8GSHlyPmsIxNbrO62 Oyc+SHQgnXtju2DuFakb u9aof6cvoAc1JtPuDFPs lhVstVmnRYY3z2An Vx28X71lAJtyRTChEFEc JVLqSJSqmHgzxv2kaS3b Ii8+DQJwlXV0tZL7pM2m UwMlIwR3ERqiG287 VlTypQDrOlgoe9sev4ts pOv5JqIoWGXqlkUvsKkw NAA7p9VvPv71R8PqxTzq n3FuBqb7cd63gPOz u0B6bWJ7P8ZlHAMldpka bBPwyOasKI5jEAKkjrga ADEbsL5gSGMoN1m0VnJn RvV8XZmvF4HpgwH5 HYZmvDTuDMLylHTRwC6x xhkbc6ulfywqRgWrJDBd BNu6JWw3WHIimWdsHgCr NSF6FlA6NRI8zECm yS2smGsezhmtvS0kPim+ PDb1o2cmdIHdSD1dgMR1 ML97KU63tJYpj4O0fNJ4 C1VpNHRttjirfvxv bRC6DUHfRAOgiI45Ds0n bRqcFm0fIMDwALW7NMQd gWEoA1UuuL9zPkKlTVHd GNVlK5CjyJQvBLfk J430GKrhDyE2MYZipeOa X8YwDQCeoSeuTvK1s4N2 Ki4HOV43US41CU86rHLk y2W3cYO0J5JvYSXc pekeapucaZE7EXOoHKJu kI34Yc9lfIxhKr6zGNFy SDL5RRFahTYlN3QwpX5r GnRsSCVqVXHgV0Bm xLZbFOfeX419BQabPvE6 EQMhpwSoR4ZbGARmhPmw YiS5x2R1Fh6GCh71XH24 EL97mKFrq3H8zFD4 X6XaEVUeydtetqghxWX3 YFSyPBLbjQ87Wm6bnGrr Lg6jIYBpIIW0FBKvjEWu W3EtnT1wTvCvLVQv XRNcO8SnrUPiKRchW077 SEhmWbX0JXGokiUgD6By RZChjYqwIbQ6k7P3Uf7F IEbfpxh7M1UeAljy dHI+AP93ANGfEN09aFXj uZPpf4mvvBt0ErAlYLMd NZV8bKxuMEega2MsYPGd U04wjFDck5T9LKRw bGx (more content not included)... [facility] Wound Care Noteon 09-16-2023 Wound Care Note [id number]# 1.00OTGTIFF [facility] Outside Recordson 09-09-2023 Outside Records [id number] #1.00OTGTIFF [facility] Outside Records [id number] #1.00OTGTIFF [facility] Outside Records [id number] [facility] [id number][facility] 09[facility]07-2023 Coding Summary HTMLBase 64 VnpvnybbHRa2xRf+PGhl YWQ+TU9NHZUcK10rdGTg pX8zK9PTNQvRMqehZGYV KDyQOkWmccRnQK9elVFi ZXJu IC8+ZZ2cCHGwOsitiMLl n6U6sIG7K66qci7cBFyl gBT3YBOhIjPvtvbaa8mt aEe0ZAnrFwxbKdKt IWYsrU87EVW0fX66Ay42 fPIejKZaz0iupAu2KjLh FEHxVKN6yBueYWddk1Gw AKErD54axELgx4P8 IGNvbGxhcHNlOyBlbXB0 dM3kVPgsafflc8vybsaf Vqq7xe27mOYmp7Q4xNS3 L9OhshQ8TZMjaBIw SpyhySTIrI9niwczi0zb osayKeNpAHHsIBa1KWq9 OBOotFiaFsGaHJ71QUE2 CZUnckLnZ6StWINq pKpiUxY1r6E0Ij2QR9NW VatwU7VMNCYZVNwqyLZ+ VL50pl17W3NxAcweHfu1 BTOmNYB8iEE4jI1q ULTwEPchq3Z9cOX9H7Pe qjMvln7bo0ggVRWsQWet E64szEZgb5Q8GPQgrAJ4 VGMqxYlsWpMcmD32 Oyc+DUYwoQfau2OsJcqg s8jww6ukfCw7VwcjDAVh dfQazGfqSAT9c0XsUf5q XHMvtSU1nFD8iM7q GrIjYoH1KQhyQ175OxHm vCBvHxogM28kB3FjgJN+ ENMzTsp2SLPrfLesCH7r P4TrABAvihltpICc mAsoCO2vQYYvbvwpIACu tX8rPRYvS7k2OnXsNyW5 RJpaB6VwHUQxravxWc66 jO1cNfMtUwS4KSib K9VsytN9CWCzmZAhGCab QTQ4Z20gz0F9BKQdPFYb OOM5rPT2eL0klGdfagjf bGVmdDsgdmVydGlj UNgqQGqfE571UJRtjJxd PkNvZGluZyBEYXRlOiAg MDUvMDQvMjAyNDwvdGQ+ EJOhTAQ4nEvbVDBu jQSmEPovUd8rbXcbiSat YG5tXFAcpvwoXSCuzT6e BLQjuFAogEfjPU8hZHDj ezynh525EbUzAWO4 EWCpnFKrX0FpuR8iWoYc GTLcKSRwV2DioWUnLJof O379ZBqhMqQ0QFBjplFo I3JtXCEsiDlwBsB9 p3S3Qm7Ya1CpgihmF5Tm kVOdVsKsFhomGWz4L1Kb PjwvdHI+QN34MMIwZM13 KFg1FYO7gMxpXBoo ZASnW4GsiR1lKpWxWUHn ZGRkOyc+PHRhYmxlIHdp ZHRoPScxMDAlJyBzdHls ZX4xEf7iWAPyZRSg iOybqNWwCnDtw4oxOVPu WBjdPN9xlQgiP9PbbPP7 HJPsr6d2Dm93N39aI6Mb dXA+HKZoiSN0dVK8 iH1dIcXmQpR5MNkrD296 UbGjnKIsTkyzq4miy5eu nOy8NiT2UPEemmTplPor WEJ4o5SxAt38T87t IHdpZHRoPSIxNSUiIHZh cTfqxg9ldQ9sXw4+PGNv tQB6qPW1yZ9fRoXySiU6 ZMoqY156TkYrfPYr Kntbd2uoh5yhzIu5GmOe AHJkvxHzcYysPNG2o6Mw Pz67O0LllQibg9VmEnf8 wk75uDHjy4E1bAD5 M2VyTGRlaavqqALfuWaa EW3sAWUlukunKTJpjT8n IHYxP1q7BvFvBgE8UFvs T4FisoY5WBWoyMHg LSLcuBXIeS2ueoifd7lm wzkqFxDpFQJgBVq3DVc9 CLReqKmpCbFpYIT2QeG7 BBX1bXPjaM7leJfg htdjzG7pTwz+JUA2dNIa mBUHYQ0rKvrteGX+PHRk GGK1sAgcQTzvXIDxdV0h UFKoL2h1QkMmGsP9 ZHwmT0SqvoN0LTIxuYJd HZGwfCWIbY1tcawft3pn tjrfSuGdLKXzCIb1COi3 LWFsaWduOiBsZWZ0 CsU1FRT8pYRswG4kfNdw errbuW4vPss+QmlydGgg IHD7QRm7R8CcMbt4NVSe yErkOU7prTAxKUpd Uj5zbItfeRsaQG1pLNJa bhetq908QvSdc4pyWBZh xWLcFTlzBWZ6H79sk1Y7 JXWlWVXxVPY0lEK3 zI8ijFhhfazmzMCvhVhs smGsmWibKBaiHCyjL162 YDWnzZieMfYgXXy4B0Ft Ghp8BYKedXmoNE9o nOYsPXvwJy4tlJphvVvk XB0pMZJccduuh907QyGr o8weIJSozQDzSOowBIB2 Z72xp2W1FJVyVRZx IZD7uSP2fM4mrBymzxda bGVmdDsgdmVydGljYWwt FIvkU230VYPdhDrvQlSb iBq7K7NpSvg1AXTq hXpsAP4bzMUyCJktCr2i hMtypItxKF7tVZBveoqb l245MsFll8peUXNsiUFp QUdyTTQ2T55qu8Z4 CRUfVESmKCZ6eSE7tH4r bGlnbjogbGVmdDsgdmVy kBwtUYdgJKalN911BIYd cDsnPlBhdGllbnQg RRtpAIx4Q4FlKuhfbEY+ OQ89ZNOhHY18mZHotVXk t6abnWr7JdRpOXRnQLG6 fQpyNNphb2NwGCFe Y83hqVOmu8Z4JNMuvBvu tXPiDyNjsXM7dA9lMNgt pynyq5aysgxuVqqrd3sz ty99qT35Z28cDDac ZHRoPSIzMCUiIHZhbGln rb9kxU0hTp8+PGNvbCB3 aNM2aE6zWMCxVlV3OBvl E490EeHrzOIaHkrl g1rse5juvHq6WpN2ANNd jcSmpYucFKS8m3CqRs87 O66bGXywTCNsZZZcDZGo JFZskJzmob1cnD2i Ii8+OTKwrUB8iOV6tU2p UgXmVyJ0ZDtwP591PsOz xZQqZjxcO17oF6YpmOZ+ XIAgGcq1EUMejJpb IH0fyLQuDZlrYp1kQJT0 NcWwDxBpZVpdU7HtTZQa ixiefkbvqLF5HDXjDZRj pM12Mk6ekFkpXSQk mOBRgP8jfztxg3mvmxlq ZuYcECWeYHj3OGo2ZBJm gWusQnUeISQ2RcD2VKY6 qQLpyY5ltOihjlwq zE3rJ4SrFAXbvnjaPz91 vV6kFiBqZmP7XLkaQog+ U1ZZOiosSU9WB7fNTNve SzwvdGQ+PHRkIHN0 cWbtSGwrOTHlqU0sLTDu H8g1MgZgVzU3KPlkW6Ws BURdqthuXs39hA2lSaKu XaB8NUdnG2AnngX9 JUVxbAKxTJpqAPM1O29e t2Z9HQSpBZRlBOA3hUO0 tM8xiXubcpjtoBWrvNcs dmVydGljYWwtYWxp U179ARQpnEttCzYaHvT9 YpF6HwH7W7HiUng6YZSn rJzcEE2eoKGwBLgmPw5l qGfroFxzDX0gTFJp ztalNJFypH4vBHEgmJAv sYfeKI4uURBcjqbjx532 YdYpEFM8IJMfuXUxD8Bz aH5gTnNdNQPfVMIf H0MhhPSdGWkpG483QAab AkO2EMEodlZdM0FeQPXn tNohOgZ6v0N0Oi22GVMB ZWFyczwvdGQ+PHRk DGL0yOgzKLkjPCXjvT8c ZHEzI1k3UsCrMdP5GNba J3GpPECgbzmgMx56nB4c ZaJpVuZ9ZArzM7Tq jtF3WDBolKDlTFsnBRW5 N85es1L0UTPgMISqZJA2 dWE4rH3djDoyulwmxFIg dDsgdmVydGljYWwt PJfpM489ROIzzBvuMb1Y PYT0Z4TbWdr1PCJeyPma IA4lcDAlROjiNl2dtLyi vMjgEF5uQGBglctf SYGltN7xSLFemQMadVjt ME5bQEUayqpzx745MyGb BDT0ELXthPQqM3CkdJ7c OtQdHPCpAOChX4Bi kTSlJFmrW093EOgkWwI0 YHTnxnAjQ1KrIVMjwFyb KjU2m6Y7Fa0GCMfmgHS+ WY31km37Q8LaVhhq Hhj5ALUiANB6xTY6nP7p CNGiWTkwj9U4rTS3R4Ym khAjjt2jf2avTXDiQWvf I18txMFwr5W8FMQa bZX3IGOnpUmgLdUobR51 Oyc+NZDltEcbu9GqMolp r3vdj8npjXa0HfUgXZZl baDgxDujGAF0y3Ob Mn96R69xZBbtTOKqJNDp RSZtELUmgIjirs3rwW8a Ii8+ONBpyEY8zCH6wO1p ZdAjHeE5VAnzY507 QhEusNIpAnygw4ipe7np dQw1VoJkJVSohbSjdPvn GHF9j0IpJa61I5NktKwg g9FrCba9bq11cVSm c6H8nUX3C8WsTSYvhmzr oFGyuPxlUW3hGCBdtpsl KJBbsT8jOFRjA9o3JvXw CdJ0WNccM0UxyqE1 KBTfhDXkXREloCRBzY9l zyqxc6kwkewqZqRnGCJf ZYd5XKi8QGYamPrmRwDj KEG6FcA0VYE1mYBx mH6bwYkfrnhnsN8oTol+ SCt1t1ovlWCcYU4quYP8 RP22IR37yLBji2L5bWB3 K9JhVRYwyzswxdmv oAT3EDSvEEFkrP04Ax6t hIeoBc3eHQMnEHQ9ROLw gVNzJ9DjiE6mLfFoCAMh HYBbL3YqoWUvAZlg J157SWpfDpA8QDRlarOy J1MnMDAgqPkdDmT9h2B8 It9CLS60SE21RE69wVTp i0W2qFR2A1FmXYGy gnvvvlmjxOE4JDOhOTSh xI75Nw5pzWzrMi8pIDKy JQR4BTUgjGFjK7RlhQ5v RxKxXVTsDRVxQ4Ti jPYdRZnsC376EDihHqO7 PQMqtmGeF6FwOERjaUky ItV2a9V4Oh0LPv44BJ70 YX85tQGmu9P0pAY8 S5NdOJMvcgqwrxrezBN0 VQJbJMFtxT32Ay5wrEnn Wu4mUKYjDOL6TAOiyZFp T1YwrA3iQeCaTLOx YOFcS1XzhUExSMoyX723 HBpzVuO0TIJxhuStY0Jc ISCsrLucCmN4i8L2Py2C DCmchsl6I3XnVrzo dHI+CS37LUEjIU00wBPf lUPpl1xldEg9YcPsHHDq GVP5wLrdJHauh6PbGJRw I89vwGRiw2L9HWCc bGx (more content not included)... [facility] Coding Summaryon 09-03-2023 Coding Summary HTMLBase 64 JyhhaqcwVSp6kXi+PGhl YWQ+EY5RUICyL64zgLXq sA6uH9VHFWvXFrucNPZJ MHvCZvKtzdNlKF6fvYMd ZXJu IC8+MW2uNGWjDnbagOGd f7O0zPO8N75vfx9mQKrm gPF9BFKnHrYcczbgy2gm vDk9ODnrVblkKfFh MFSniC60PDB3jP36Vw35 nNIpxALvy0bqfAw8MjKn ITOdPYA9rKrlHUkpn3Ia RPQwA10ibLKoh6U9 IGNvbGxhcHNlOyBlbXB0 vH6gEBiywseul3dfdczi Ygk4nz02mMQna7R2rJN1 Z1GubsF8WFXdwVUm ApidqSCZnH6kmcfis1mg dikwYyCoTKGrMWn5PDy0 MDBfsGepZuPmFG49WHO4 CVItxeHaD1VxKVLt mEkiDqK0v3G5Zj4KZ6BB XdtiD2ALEBJVANiatCC+ GF95vs30U9OmWvfhAoh5 PDTtTOF9sWX3gR3r FMSbNPyfo6C9rVJ8W9Gy kcNjdq9rx5hvCFVzOVpi D70coZNcd0I4UKBvhQH7 FLLfnNkbWwFfiQ78 Oyc+DHMycSdun4MvBmks e3vvc4etdVp7CrcgYUWr jxTjmHulCPG5l4YxPg4g OYFbhCL0tAK6mL6a XzRoIfT4LZavB759NtEo pVXrPzbbL90qB6XwfIP+ MSDgXmi6RNKinOjdPS7u X5WmGFXypjcxhMDy sLijXQ5qRWZohpmkMIPd sJ6eIMLiQ3k0EfMpZhV5 PPmvE8TkSSMulzptSw96 eD8xYtVwUhS9GWbr Z3LkjiH4NYNbjUGoXKxx HTV7G99vb2V8TVDfGIGc LAJ0iKQ6fG5eaApzhmya bGVmdDsgdmVydGlj OJreWFusW596JXYzuBqz PkNvZGluZyBEYXRlOiAg MDQvMzAvMjAyNDwvdGQ+ DPDlRVF1pOmzRNVo eNWiHGxxCl5dgUnbiKjl LO1xPEWfembjVKLchJ4u CHJoxVTllTwrPI3jXKVc xaqcr218AhUxWZX5 OMSrxHGkL7TezX1bVtJt IQOeRFQrP4DjdXFnTSky V648ZXubWjL8VGItfvZb N2IkDEZldPvtHhC4 j9D8Nj1Gg7CvnbyoG1Tw mSFyDhMwKkpqFCg5P5Oc PjwvdHI+TL91NKVaUQ55 QFv3GFY1pTwbZBzl MUZlH7NpsN0cJrUbRBIl ZGRkOyc+PHRhYmxlIHdp ZHRoPScxMDAlJyBzdHls GB5gBo8pEGPuSYFl mKsniOSaCsPio6fhGHNi KTszDH1puFulT5JldZU6 XABap8h4Ns16P59zZ7Ps dXA+KONsuGG9rEE6 eT1dOnObOxL5DJkdC345 HeNquKCkQxaur7tzp1qa tMy4FpN0ZYTracFxmOqh ODF4d6LeZe25M22j IHdpZHRoPSIxNSUiIHZh qXggtp5zgI1vVv3+PGNv pHU8vUI4kZ1zIoLqTjT5 WQznC282WzXicJMq Afsex3thv8idlHv4VjRc WDBfjuBphQxvEJB1p0Tt Au93N6OxcFnlw3MyHvd5 xr33uUFly8W9uEN8 U3QsJIPueckgeFGrlXfb OR4zKWYaaodnNIXjnK5m HIDfS1o5SsMsAeY0BJdr U2BjduD6OLWxsSNm OJBvqYFCeA9aulsqy4bo esxeMiOqLEFsGOh2KKu1 FLDflQbhMoNsECX4EhR0 KUS6mNPvkP0gzXox fjqcqB3cQjp+BLX5jIFo lUHMET0vJkeddBS+PHRk CLY5gNyuNCylYTVwpM9q XUVpF0h3AnVnJzS0 QYdeT1XumaN0ASBmvPTu DAAteYSJtM1fyhdfa2wk kbfbBsSnYRYzGWm3VBx7 LWFsaWduOiBsZWZ0 RxN4GLT4uNAjwJ5llXto ohhchB1lQnb+QmlydGgg DFT1TEq6J6GwEbh7LPLt qUjtSQ5ysGFlJWac Ve6oeLpcnQqaTF6xLZMf fdart039SbJad9riMYEh fXFlKFjgXUQ4G40ee9R6 YOWtLOZeMYG7yCM1 fI4ytDnffgpegBLwqZdh pjFehZtoGUauAYskQ375 CSLveFimAfRvXZc0C0An Zil9QPEfnNvtQE3e wEEjSCopJa2mjGdjvSsi FS4jVBXsqrlwu449ZqWs q5bzRLAbrTBlHGljUCN7 L40nh2N3QGBzXIPf GTX7cNV2oT8ruTqvdxqo bGVmdDsgdmVydGljYWwt OKgkE359MZNhcVjcWaRy vLs5U6YzPhr4THMj mRytNI0mrUGxEIyaDd6l hPoyrWcqVW3lEPZvbdah e638SgJma8ccJPCjhLBc HShfAUG0S28xy0T1 TKRaSUKhQNA0wXJ6rS0c bGlnbjogbGVmdDsgdmVy nAhnPQcpIScvT781ZYFb cDsnPlBhdGllbnQg GDryPIh7C6WgDcsspLR+ BF63UWBrZK14qXNleMEv z8rtkQf9JpXeKFWkHVW9 kRxnPXset8DdJYBf Q52exHVta2Z9GCKqlMav kCTaPjEvuHS1yM6pVWmh xzcip8fefzqiJpvfm3oe cb07sW97M18bELbq ZHRoPSIzMCUiIHZhbGln sd1umK6jJw2+PGNvbCB3 iBT9wI6wKUAxRcE8ZRbd J729MyHhtDSkKlov h0keb2ramCt1UzL5QHBp idZphZpwLAF8f1IuSq02 P27gQBfcMHLeXULqTUKg EWCkiOpmdc9xtT0w Ii8+NARzySY6mIO4zE8a VuKyEpB2IEisW147SzPq mHCwPdhmL58sN9FsgXK+ QASpGxi8BEBfwSdi SM0qeFSxEBzeSt8mHTM4 WsCrQdNhCIibV6RpWMJt gxnfpdqdfPI5MQRtEDVq sE31We2naFgbCVCz wUWViF7lqkldt5yjfsqv JjTcVZMjCBz1NIi0VXSv nJxlYiOzARA5VeN3CAM4 iNVbhO6mbOeuviig tO4eA8MfDUZcyfdgGh58 aC7gIgZaHwY7TBsaKyp+ J9OEWapyXI4RP5mFAWnj SzwvdGQ+PHRkIHN0 uEahFIhoERWnsP1jEGOe A2e8LwVpKyL2CAxdE0Ct TYNwxwoaJt44sT6fAfQf MaV5BSdhO1TanbS4 MFYllAXuLLefHIA6P07x m8D6PIKlQSGwTUF5eVE2 uF4kfUiylmznbGFxuCfs dmVydGljYWwtYWxp I660QMOvfMvoIrIzIdX7 HqN8DvJ7S4DgIqe0JQNy nJpuEV0tjRRuYSbiUu7r eBqwhXdjME9aQZZe ocsxJFGowU5gQTPgvIRf tWhzYD8eKLOvxljus762 MmQlMAA7DNWviCXzN0Wz fC9sZkEgVHUpENUv N4AbtVTqFHimL999GDow PkH1HOXheyQwL5XnTSCc gMuqYiJ4e5B1Zz99ZDTT ZWFyczwvdGQ+PHRk ZYZ4xRqoALkwOLKtsA9p LFUaY2e0GsUtSnP7ZCop S8VbMHSmcrrtWi21fU5r JjByOnS4JCteX7Ev swE2YVHasMLpOWqtGSU5 F12ts2I2QSMaSLLsBTG6 lYV7wM9wiMgtgnnpsVPk dDsgdmVydGljYWwt WTskS510PTJynGnyKo6S PNM8Y7IoYzc4NRHwpXny CG8uhJEtOWeiNw9peSct gIfmSI7mGKOlaydy XDRjmO0aWFAmnAGqlIya WA8xFCNeigxuu897EvIn HNI7BNIzcECaL3RjlN8m VfXtVRRaOGBcA7Fp qLQzCWxnC869XDhzMbZ0 IJZehoTmU5QeSSObhVuf WkO6t0I8Hh8LWPxppEF+ CO89zb86H1LjNhfi Trw5XRDqEPO9wPH4fN3y LLGkXAier3C2uZT9F5Kh uhKxtm2qp4jaULOhGNpb F11cqSFel6B3GCPn rLL0OONofBsaKfPurO62 Oyc+IORdvZjzo5WdCbkc j3vvl6bisUy7YnYwQJUp mcWfpGdmTRZ3n4Fi To86V67yHIdsHDTaSPIz NTPsPMRcjEndyi6vuP5q Ii8+KAUwiQY5wDY7pU0d BuNzKsN7RPwtC472 DxChzVJsYtapn7ztp3rj zOo1LkTwKRFncmRzwDso HMJ4t6MhIv97Y4WaqUif j0IjNfv3cu67oWJw x2A5kUY2K5FnNTLyisgf xDIggOztMX3oOXZgmoft WZMajE4vFODgQ4w9FqUn ZgB5KSzlU4YsxuU8 VVZnuXEsVKYukDXEhW6k fpgrt6fjutxxNsFnRFNp QYc6MZb8IUFxmWvxQiEp JNY3VmC7CPA9sXSh kZ9neYrkibqfkK0nMjr+ AIj4r3lmvCIkBB8skJN1 HW24TQ24vGAil3M5oXV7 V0GrYHYhjmanevkt yVK2RUXbDUIzxV80As6r kHucMy6kMXOxJTW1KSWt mBTrP2RunN4nMxUbXBSg WETnH0VukPRhGKgz O212BFatAfB5IOQhpmPf Z1JmDJMsqNfxViS1k9J6 Sb7KMX18UV62UX58vVHi b4P2tLQ8S3ViDCPu mxlnnoypnES6BBJdWTFc wI30Gs9wkGezBf2vFHZt JZN3WHEnfESoR7FayH2i UkJsJJGeNDKwF2Sl nKHgDVvbN471YOpmDpH7 LQMxriKqZ3LxFKZzvQok JdN8w0I1Or9RTd30AD93 BS20cVElm6F9jDX6 E3DaYKGuigawjsyfzIY5 YAQaHYZbaO01Oj4rvYan Jk1qVXPsMGI2UWZocAAq G9WdaQ6yGcXxBMFy DLZmO2IrnFSpZAtrH171 CCcyOrL4UEEkryUbG6Yy LEWegEzhYvK8e8S4Eq7U STyzthh4E1DpPaju dHI+BR98GOTvAI53yKRa pBIwj8lcbQr8WtPjUWDx RBH1vBauBAezj3EsONWe W82lyTVne4V8VAWq bGx (more content not included)... [facility] Wound Care Noteon 09-02-2023 Wound Care Note [id number]#1. 00OTGTIFF [facility] Coding Summaryon 08-30-2023 Coding Summary HTMLBase 64 ReuaegqtSLd7jNl+PGhl YWQ+AI4QVMKzD00gmLDn rG9vR4YGKGiMWaukVFQZ VGmNEkVvolBkVK1qoWYw ZXJu IC8+YN1lIEMxIovmsHLh n6K0cJG9S93hfc5qKLgv nOX0SLAsEyQgbtvqo4yr vMb1FRxfEddaYnOj XRGjbG70OYA9aG89Lk18 xEAgwTHox9rnpOh2NqNw LJQuAZE4bShdNZekb1Ay LKIhD70smVFpt3U0 IGNvbGxhcHNlOyBlbXB0 dF3oYBgyotvxd0kqcvwo Uqs1rj42zVMfo3K9bCY9 Y1WfdhE4WBBsdLKw JgmpyJDYxP8lssute1hk rvibEqJkRNXgQCa7AAo5 RTIlbOizNvXmEU78RTF5 HBPpshOhK3CjWPNt tFmhAjZ9w4V2Hw8UX8YW GlueD3UYZHYYNJrslQU+ KD32dg15F1FqCbvyXws6 KLFvCZY9sFH7tK6w ZSFyIKvam5J0yLU0N4Hr pcPawv0fa6yzJQNsMUsy Z37stJXvf0C7PYReuGJ4 HKTurDwdUxQgdG34 Oyc+CNSsdVjhw0DsBhzi t7dkl4tgbLn7NbtyHAMe wsFytPszDDX8f8WhTe0m ERWvxOG3dZX1fO8a ZrOtYpQ3FNskE208SxNh fKRjRyhxP26dC8HnaJE+ SDNgJst1HQElqDrsTT7g G2MwPETkeepahTIp cIeqAQ2qFXAtggbmVUXi xY0xKQWnA5p2BqCxQwJ5 TWwtB2FwIFFciwcqNj66 jC3aBcSjOuC7TEru L7SgmzD9SIKefMWkGLlq PVX8T93fw5P3DUQmILDo FZC3eZW3dL3bmMsmpccp bGVmdDsgdmVydGlj SEsnXNjxC236XERreRfk PkNvZGluZyBEYXRlOiAg MDQvMjYvMjAyNDwvdGQ+ ASMtHHY5eHieNUBh yDJpGHjaOf7deVayqLmm XP2iUIEjntqoBKMucO8o TKKkvBHerWrqAC5zSCQd ngwrc391TpCuPWY9 NGFtdWCkU5IpdX1rSmFy QTClGZKzI8EusXUtZBjq A723ICzkWjB7DUAqanEe C9AwDDDfrZhgRfL5 d2V7Mc1Kp4XislhwI9Sr jRHrNwDyWxmeDWf8J7Vj PjwvdHI+DE60ORAqFW84 NPa9VVG8aCraRBas KQLxB9TvaL6uNzOsDNWj ZGRkOyc+PHRhYmxlIHdp ZHRoPScxMDAlJyBzdHls OQ1mUw0xKWJjVNKl sHcacNEmXxZfx7fbOTYx NDqzHT0ewUsfA5AfoQC1 QWJvn0o2Ts77B66wL1Da dXA+HUMdwKT7sPP7 hX0sFjUtMpM1RPsiS310 UgIvbXDdIwdxn8rnz6ho uLa7VqA7BMTundAieJsz IUU9v2QqCf15A04l IHdpZHRoPSIxNSUiIHZh hRaorb2zuY9dHq1+PGNv gYG6eBG1uX1bUuEyVqM5 PHjpG952DzFftGLg Juijl8tmo9ymsUw4SuWk YAKrhqIqxEreLPJ3t3Ng Mv48S7SdrIldn5DcFlh8 gj69vHEfr1B1jUC1 K8CnQMMlxcrqaMUedLwn YK5xKIVybiehEIWuiD0k YPAxI6m1WxLfZlA0JQwy N6PlxcI1TSGimUWz MLPvxZSXkZ3jajhgc2uq sxvxThOzGLQtSSc6NJa7 EDNwuPmlYrJsOPN3AcD8 EZA7mBKpmL6tkTte wgmhlU9zIgg+GTP8bVLm zKLQVG4oJvizsPX+PHRk WDM5iBhpKHaeLDHinR1n LYGzK1l5XoTaQuR5 UAuvA6UwasP8XPCnaSPr JHRgzIBSaR7lrdndt5nf gqaeAbEdJDPwERg8JKj3 LWFsaWduOiBsZWZ0 LkT5VNY4rFKfmL2leLok cctzoL0cHog+QmlydGgg VDG7CUy7D2BxDgl9BWKx yOszSP4vnOBsQIyw Vi0csJrkmNdgPE1iNNMq xvvur759NoCms6cgNDZr rOTsMVldWTH9V68tc4U4 DZJtKEUaXTW4aVO3 nT9jeNjekdkcwSNxeYki emAsvEojVGosKPkcY426 XNLndCstFdXeBBq8W7Bx Vjz9XXHodVjcCS7y jZOeYBuzKp3bbAirxOsz XQ9fGOHcuiose531KlOn m4hfOBQssSXuLPmcOSF8 O46os4W5HXWvXMRf DXM3fQW5pH0wqJamkqkh bGVmdDsgdmVydGljYWwt BFobA710JDXvmGxiFfPp cYj5O6YyPwf4KFPj uGvgMO2uoDDtADxnOu4v yGyglIfuHH9yIRPmknbd p590GpXmm1nqNIZjaDCv ZZhrRGH3Q50sq3F0 IVSvOSDeBMK2bWP1iO9b bGlnbjogbGVmdDsgdmVy vJcgAFxdZVcjF281SKTw cDsnPlBhdGllbnQg XWysIKs7A3KbHnjyfYL+ QZ84TMIwJM17hVQzkBHr q3qrcKp6AfBsETZpCBM4 bTzpPAomu0SnILSu Q34wzJLec0O0MLUoyQqn xFJzFmUtcDQ5lA8rDBhd yqotz0iujytvBberj4kt la18yU19U13nDPie ZHRoPSIzMCUiIHZhbGln qr3blQ7yQt3+PGNvbCB3 hTJ1rN6yGLKfIzN8PFql R641ErGooUXbYvuv d3iaw5wriNv8QhJ6NOOg vmZicIonMEB0i7UfSr12 Q39nYWvkAYZqNRJqXRTd IECntQsruy8txA8i Ii8+KAEczTG2dAV8uK8s VfLeDhW3ZDksT233NqTi yIVjNazoM06gY1BouAE+ LUAjUrr1DEIqgFxu RY5dxVTcJOvjIu8nCEE2 YtHkOtEpCWanA9SpRXGf ubxixtkmuWL9BEJtRNRb lS74Mx4ooMbiYFLy uQXRsH9yhszre4rpyvik FgXgVMBvIKw1KIz5TAOe zGxlGbQuJPG8BgC7MIX8 hLBvsF6unRfwrjvz lM1wD5NiZHRnrqeqFf28 kN5vAfJwRcU5MAjfKms+ M3RESxmsPL9HH3iDDOfc SzwvdGQ+PHRkIHN0 gDhqBEqdYRJpjL3pGFKj H6o9QkChKuI1SKsfT0Fs BRYmwgofFd29dH3cKeDs HdM2GYhyE4EwntK0 BNRnpBJfAWfqXZD3H96n z5R4YTPxALBkTVK4kDZ1 fL7adCkhprqlrJJguVkg dmVydGljYWwtYWxp Z791GGJzzDbnOaGdXoS5 WaG8YpK7F1RhUwq9BLEz sOmrFX1xfQYyRZpyRx1t bKfuxNieYQ1vBUJn ndpjSGBfvD8rVLNqsJVc nUbfAF3eDSJguftez575 QrKvYXY0AORmiUNsC5Or qZ8oUkSoOEMtHYLo Q3BshKYvWYwlJ927CFol YiK1KVRzsfWkO5WaDVVh yAhtScM5q8U2Qd02UKPX ZWFyczwvdGQ+PHRk ZYX5fSunBWtkUDIorN5v VYRlV6k0PeGhYvM0EUig G1WsGDStfubuTi12oO9v ApCuDwS4LXujY4Jv tcS0FPUtcUVkRKhePEZ6 U99hn6E8BMOoXIZnGWY8 oDP8aP4rkKplqzvswIWz dDsgdmVydGljYWwt GAywO733MBDxnRnbYk9G GMT2V9JmDmt6QQUnmLon HJ9mdPFhITppUc5ggTup lDxdYH0oVWIibqjn GZYlwN2sFPGxiBWmtEjj DH6zYAVzctksy004JrXu ICN8ZPOuhXGhB7UomX7r RcGeLYGmVITjP6Wp tNDxJLzmS676TOjaMjL5 DNQmbiBoN5AzATVpeYyq RbZ1w7U1Dn1EBFvidEH+ WQ04pc26E8LnQoln Kol6NQTcQOH0wLI3lL5s BLViJRzqb5N0gCY1V9Ek jnEoju4is7dnNGBfNYqw G22yoVAtm8W4GCLg jFW7KQZnpVxsYgGktQ96 Oyc+VPWyzElbj8UtLvtt j0fcx5zjdCi2NpTbIVYd seXqeTmlOLM0d7Pw Gl26U98zQAokDZKbGPRg CPMjBBPqvZpeff4paE4j Ii8+GWZiiUS0xAA5sC1w XwQkHcM1QVrqA202 UoCvpMWvNrzuq7hru5oy rFk6ImXtCPZjgtZezWzv XSR7z6OlLg32K7XvyGyc j6FjCbm1bs40bNXp r0Z7sAO0Q2PlRMMyxkvr aJDmeBidDN6nFNKrjtwe VBFxvC0vBCOaG4x5PjNt EnI9BQtoG5WkfzQ4 VDUerHDsKAYhhSPQgL8s ibcsh7dygdhjWjFbYAQi ITz8OMs0IRQatEbrZmRd FGL0CmT1HQS9hERf yG3qaOmdpifuyG6nQij+ YNn5p2hpnSQmWE2nxYI4 PB80XZ26fWKbc1A6lXQ5 T0BaHZSrcogygrnq yWV0SDNjINLtkM32Cn5k dJtxFl0hJNLkEBT6JYLe fBQlE9FkuG0hVxHzBWEt TZViB9MtbOKdQGdl E177HLccBpE4OVZkovMn L9ZbXFKjrZxdDkM2s8Y7 Sk5GGI85KK98LA36bLKw a8V9nVB0V0EsYCAb zkvkjeufgZA1OYMlMXYq mC44Ia0vbRsjCg1ePZJy EZP0UVGqkKPtC6TcvA0w WnQnIYCaKFQeL3Fi pNTlMPetE412GAnjGwH8 VPYbrmBiF4TtOIDxxDlx NvX0d3I1Er4YXm33XD69 BS56qEFkf2F3iKV6 E8YdPEFlpjotwobhlOK4 KIXdFFCemQ03Pv0ftCwv Ws0vIDWwYEV5HXXdbEYb N9MufT7oTnCaJPEg UHLqX5BgeHNoBZnfB922 JYbkZhL0EMQwbnJjG8Ki TONbbSrgWwG4l3O2Su9O AFwebak7S1MjDyzc dHI+ZD53JFBvIN38nTGi rSQor5wfxRn1JhVdRBIp LQH2hMqkMGljk6XhITTz I42mlYCte8W0RMYv bGx (more content not included)... [facility] Coding Summary HTMLBase 64 PwgcajilUAw8mVi+PGhl YWQ+RG5YUIMjE17yzGNt lR6yK1IRTAlDBhwwRVYV BWeEVsIfnaShXW0ttZEu ZXJu IC8+WY5hHGCjWssxeLHg m5G4gVR0Z60wej1lZTki fWD8IIVxPxDwjrudy6xi cBl0LSaaWwkxNfUm TLZmpN68XRU7iL93Zk73 mKNpdHHzm8gojOo6VqCi QGOyTOV4eDfgMIdmu6Ml DVFxI45xgFVum6B4 IGNvbGxhcHNlOyBlbXB0 sL0sQZuylwvye2margdl Bib0ab30jYTzp5R3vBH4 P2IugfW3LTOpwPJc KboamSXDaV6vamcds3to iaffSwDjZTHsITk3COr9 XJMnwWznLdDbKV85RYV0 XOCulxWpA2BuOJEm rSdoYwH5p3F3Rm3LM1DQ HhenA4RVPXFSJKcoyPJ+ BR12qq60D6XvPffhTom1 KNCnLHL4iUY5kK7o ZWAlHAsso0Y2qXD4C2Et sbIekh0zf4xuWSRrUUdf A50spZIsk7I9DRRboEK8 LNKbsXdmKwXdcN64 Oyc+RSUglImzw3FlYouc z4rlz0vwiJj3KtymBVBg ehVvjTblXWZ6e3VaLt0y GGXmjTN3xLK9uY2r HmYqHtZ8SYqjT822McEf eTQcYpseC70gN5TeqHW+ YFOwJvg3NCOzmTgyKN6r B5PoEKKtlfgxwGId dUopVV7jPNIpckuiVOYs zC4sBEPfT8g2LzMqTnR0 BSqvB3GpWUJwhgleQv53 zL0eIbLjJqK0NIjf R5IokfH3KPZevVSdWMgx TLI8L41em4J0DQKgFMFl UJE5yQA5iN7vdJxbwnro bGVmdDsgdmVydGlj TVexJVfwB991OINdlBsg PkNvZGluZyBEYXRlOiAg MDQvMjYvMjAyNDwvdGQ+ YXTjFPP2qYzpUYKc cVZpNMfpCn0vrLdtbVlf QP4hOPNfetthRMHuuV2q UJQcqGMefCjvQW0gHDXn eaaaq705BgVzCYU4 PXHpaEOdB9TpdK5hCuZd MSWgHDFwT9PcgNXsJEht A815JIytJdA9WSLhcyMf N2ApAKZsiVowOtU1 o7P6Xt7Pl4PftpixP4Nf nKCySvZcDgjsDMg8M7Ce PjwvdHI+OF02ZCNsNG26 HEb1BBN3wUrlQFsu VIQxC4YzcJ8yCvLvMUDf ZGRkOyc+PHRhYmxlIHdp ZHRoPScxMDAlJyBzdHls ZH9tNl3tWSAoACCk lLyklNKoMbOkt8acDPEf LVuvJU2kfZuoU8SdcOT4 ATKhr1d8Nq30C99aM0Hs dXA+MFRizOM2uEP0 yD7pPyKyAtI9LUvnN927 XzLisMZdJpjhc4vut2qp tLl2PcQ0DEZrnpLvaKqt QAT0m6FnWi41S55e IHdpZHRoPSIxNSUiIHZh kTcvoz9ryM5nNs3+PGNv iPY8fHP5kL2kIyOoUkH0 QEgaA855DaTncJDw Zvcan4wea6qveQr5NcLv QJXotdZxdGcdECC7y2Zw Ff27W2PjgGtpu7RjXmz9 xe49jLVcz1V9aUB5 H7SzYROdeqmsvPNnjWox DH6bGOMmfzqmJTTzfJ2c LGLxD6l3KhAsLlT2JXre I1MmjcD2YHEmvGVx EEDnvQHUyE8atpprv0lj kesqVrZbTNHrLTv4OLy2 SNQxxXzjApQqHAA1WbA5 PHU7jYFzpG7qwBcb qyptzT7nGjh+BIC1bYFq wNAPGC5jQuvacQQ+PHRk HCY9tTrsKLquNTNnuU8m CMEoD5p4RhKgKrK4 JFieK9SxvvI1LAWpzRUj UUYwrBRSwN9npetxp1th niavYkUhBLNoCOn8TUu0 LWFsaWduOiBsZWZ0 EyX0KEH4xHTiuY3qsQuy qnltiG1iBcz+QmlydGgg TDV3HXb1E0YaLxo8IPCg iRmsKM7jyADoFRyc Yk5idIizbNciPN4tPNYb gadfi489AdQki5gzSUYo fXYbEHrzULE0R90nz5C6 IYRoJQIhVPB1oJJ4 xA9ntZbrdqonjMUdhItu yaYxtVjeWOreUDezG636 THZojEpmDxGrXDw5C2Ey Ntw3STUwwLorQD8u xVTwBMkxRo6xoVkycQaa MV5kBNGbfnhxe373XgZv t2gqSELdpIKbQUdwEXY4 V99xt4V2EFWsHJCg TVS6wLI5fU3sjXyrkdcl bGVmdDsgdmVydGljYWwt FRsdJ468SOIpcCccYrPe bOb9H7TbCjp6XVAe fByuEF9ydIMaEFvpQs2t nJltgVoyWP6aXDNkmrzo k602QtWkp3hxAHQldTOp ABqdBUE5O11zu0X6 MIPgNLZqDKJ7eVS3yO9k bGlnbjogbGVmdDsgdmVy zJmcRUbeXOoyI187CNGg cDsnPlBhdGllbnQg IVnjDUr9L5KlZbywxYE+ RF49LLLtSE25gQSmxMWb b0javPp5UbKyWYVtATU4 cHiyJLunp7HxAUUw F61yiTRlo7D7FFTxxRhp oWUqLiCboLC9oQ8kOBmi rvmjf7omttztYfgrk7xi eh16pQ67R06fXHio ZHRoPSIzMCUiIHZhbGln se2ctF0zZn9+PGNvbCB3 uES0nL9eVKNrKqT2JMfu B942JtEpfPRvTltp v5xrw0nadQf1DfF9MRLo klLwdPfmFXN0r9QqTk70 L26mEOhkSLFfKVUnLUCh SKJbwMmolw1ixA6p Ii8+CQMvcQX3aFE2gI5a HjWeScT3MAhrJ463PqFk uFFyXjxnB73pG8NbzXL+ NOXjSly3BFGuwSkh YB0uoFSgMBwrRq9bGIS4 FcMoYnXaFEdeP3TbQFXu glvynqgypEZ2ECVtOOBx zN53Sy1twEiuWFPh rCGAbN4fumnyp5sayqnw XkKtBUNaTOw8QSu6HOBp mXyoGsHjTRH4YcO3QMT6 xVTivN5sjHglpxmt yM7lY7XdSLUanjirOr37 hQ5kXoDcJbT2RXfpVbs+ P0OHZwecRH2WD8pLGKow SzwvdGQ+PHRkIHN0 tZmiUPfsFIOkfZ2sLJIi C3k6TcWfSsP3RHofE8Wr IWSklaokMd39aL5hHzIo QmH2KDwdO0MuylV5 AVYkjRVsHLpcCPQ8E64i r5F2YPRoCNJjCXW2yLF5 zA5ogZefplosuCEuxKbm dmVydGljYWwtYWxp Y818BPZotLhzIuRqOiD1 ZvI3DtX5T7DfAqv2FPFc lVivQZ1qiBUsXAniAj7g sNtflTvbVL6xUZDx xqurYFMulV1rDVQdqLSn cRftBC9nQSOgabqba336 KqMeLQK2ZVMttBTrN8Uy jG1eViZhQHGlWFXd Q7TcdDRoTWpzI135YJjm KtI6XTJpehTiI8RjQRXa iVuiXvL0q6E4Cs22LSIV ZWFyczwvdGQ+PHRk HLV7iJnbNTdkPUOhyH4h DBDlQ2l4WhNsXuB7WTuy E1XxSEOcwuvpTs64mC2n JwQwVpM8AZjuU3Gp smR9IEYagSJkAEbkBAC9 Q66td2M5VIZuRPPvQER6 zUN5rL3vpNuaykpesVWz dDsgdmVydGljYWwt JSxeR602TAAoiNwgDs0L BVJ9I0OhCzi5BMEktOqw GS0ejIFhTUyfHy9aeIog rZatBN2nIZQhcpze RMKzwA6xDHXqpBImsUbg HS9aRHPajfwaq755TuWs BEZ3LTWhvABrK0YnjS1t SwNiYCOlAWHtK8Is lIHeOYebF435JKdxVvK6 RBPewlUeQ0BpTVDjmEkw DjW2r7F9Kr1QVGbxyMI+ ES20uz90K1JwOjhc Oeq9VYImZUJ9mOF4uX3r YSTxKOrse6S1oWE2W5Sq zfYjfn5pj9meUOKhKSjy M13acYEjx9Q8BCAa lSY5UAIibRawPiQgqZ06 Oyc+UTSjvIbtm5JwBnln w0hco4ievRd0WgRcBJYk ktSzdSieICK0y2Lv Nb13G22rTJtxZLNiLRWj UBCmLWStkLxxwt3beP5u Ii8+KWQelJJ5lPQ0iP0c PxWoPnD1LYhaM899 OaZhkOHyMhiqn2bow7mz cWo9YcGmCQIpntGzjAza NTU6v5PrGi62B5BcwKoy d6AfCxx2rg49eQFk i6J7kHC2N9OwBYRczgob jRLwhKftWO1uONLekiny PSSwwH1zZQOmW0m4MzQa OmQ3SKxxJ1AqpmY8 FHCmxYNcJMQwiJYQtS9t chwom9cbvclsIdGxCDEz JDv4XFu9SPAwlNwbXtPo FNF4TgL5EJV0jPAb fL5zdPgefgynkX2hKuo+ UBi8g7zpfZIzNM1caEN1 AO38AU93hIQne7Z4sUI6 S5BpTSLrudjqktvs yIO2YAOiIFWaxZ88Ur1o rSfxAg8vDGAoRXW1ZGAn iIFwR5TneR6zPvRlOWTm QJJhB5MzzRCoQApd C870OYlxXkU0LLBngbYn B3DbPSXzcXzdRdL2b1P1 Fb3DVL66OR94PF89jXIi z0R2lCR8P0DkZSDl ecwleobgpKH7ICVcXWXi vQ10Ns7sfFldJm1eYJQb RPC3ZFVnjSHcR4RapH3z WpBtYEOpBEHdL6Wg wWGsBEwxI409YAuhKmP3 HWJhbdHrX5UuZOZyxGco WzT7z3J9Lr1ATk75IK75 WY01aKSvb4T9gPK8 K3KmQHWdbpnakneghGL0 GZHlIFTtrO63Ng6dtKsi Vy7iHXIsZVU5BHEliLPp Z7BmaF0hGcWwEXMo RUGkY0XrfVRvSQkrG311 ABvuDnB3RDBbfhIgS8Mk CVUlaYvbXqT6y2Q7Js6E SXmfpjp9W5OmDbgy dHI+MZ01YCSuCX28rEBu zVJsg2qdjIc4ByCeZDDs XUS4iDlvEIxrl9PyIIPg L91nhONbs9S2QDTe bGx (more content not included)... [facility] Wound Care Noteon 08-26-2023 Wound Care Note [id number]#1. 00OTGTIFF [facility] Coding Summaryon 08-23-2023 Coding Summary HTMLBase 64 PcofbqbcDYc4jPi+PGhl YWQ+ZP3RDXXeL16kxYAb mZ8iG5VGASjXOzkeWBUL VKmOGcQjizUxIL1rrZGz ZXJu IC8+NC4lNHHoGntyyEYo t4B0jFV5H00wrl0bLYfc dKK1DMGqIcRadjpvs8yh xYf9ESlzInktCoSg QFDgvR23JII3pV28Kd07 qEZelNTvs1bsiKw8BiAn YDGqARU7wDmsUJztv4We LCKwL78eiRArt9N3 IGNvbGxhcHNlOyBlbXB0 gX8oLYuvfgswr3xvvese Uyp3fx18uEFan9F1hLQ4 W8OllzU0YMIrsSZn TnzqjSMRjP2ztosvv5wo fkywRiOhJRYaGSn7NMm0 EIXmrMimIuSxXQ67QSQ7 UMLpqjBsQ0McXZHf kRnmUeV5p4B3Hn8SV9QY BjboN5GLSXXHTDskvWH+ YV81fi46S5AkUjnnGzq7 TYAvBSV9tLI6iJ2t PTOyFRtbf2W5pPD3I7Ej nyWsyo1xb4geSLRuXWzo Z03bjNWgp4K5XDLqfGD0 QEPeuBxeTdNsnV29 Oyc+EDPdgVinh8TmClal m7eub5hvwDq1LydeTABt teGvoVbcXOB4e2VeZd9k QGZdeYZ6wXO4yF4k ZwGvWlP8XYxtA304JlEz bWGpPgjyB87kF1LyvOO+ PURpXvl5UMDpyGkvNA3d C9EeECNshhbvhPDs yNyqXF6uTKUzrigmSSVn yB1aPZNrH7t2AgVyYxO6 VPeqC9VfYHAidxzhUo83 nQ5rJhDuIuA4MRcg I5XodqL2NUOnjDJaCWux SPH9A96ng5P1RCAwDYPq HUR0nOO6iH0msFbtdtxj bGVmdDsgdmVydGlj KKmvEKtjI295HYKzxDgk PkNvZGluZyBEYXRlOiAg MDQvMTkvMjAyNDwvdGQ+ MIMeBGS1yKvlBKCj iYUyRMlmYi5kwIkypExt RH4mPVAtasytETGqoE0e WNHevQGreCiaQS2vVHKd geyhs979ExLjMLI5 ELVwiCUxE2WuuO3vBaJu MQFeYWHqN1QqaJUvVBhc M074GKuxKsI2UIFwvyAw H9CzPVPgsLtyZrF4 o6K7Ly4Ut3XaxavaU6Rh eOYuGnEmCqolTSd8R1Mp PjwvdHI+VK07PAAiGQ81 EOm9POZ0cWkxMBac JLXrL4HwfV4gKmBvRBQh ZGRkOyc+PHRhYmxlIHdp ZHRoPScxMDAlJyBzdHls GI5vLi1yPOSiVXEt bKebjOAuNgXgr5jdQUNb FKkiTB8agEuiB3NbcLU4 JAGyq3k7Og43R05aD2Oj dXA+VXAuaIQ7sZZ0 yH7iFuYeNdP6QRwgM346 UdJfnXIrGmmgm5top4ag kZi3PgD3CTMiriRthJsr NBY2t0CjTh22Z62g IHdpZHRoPSIxNSUiIHZh dSvylq0inU9pLv2+PGNv kFT0bGW9zY6aXnWxCiQ8 INvoY022IgPocITc Qaeiz3drz5cfsQk5JoRe CZUekyCxnEzlUFI7c9Pv Ot87L5RzzFtlo2NhWor7 sk88oFWwx2O3uEN9 R4YcMVNcefqonSVkaDes TQ3nHTAocwwcTNAytL9e IYSqN9n4SvLkYfM0CVka B5XsknO5KLNyhUYo DLTrhVMJkZ9yvvpzx0dp gpeiRwYlVXMrJVk5SOf7 YXCteMpjUeFiHWB4NrO3 ZRB2fMOeuR9zcUiy snrctX6cMbc+ZOO7sRSz nEVMOD5nTmxqlVL+PHRk NMD8xEjbQPriBUYswL4b SOQbN6p3UgTlYrO8 BMvjM5PwrfB2DAEpmFDg MMMneYXKuI2jvijvg0yl fzgnSwAiIMNxLQs3QEb1 LWFsaWduOiBsZWZ0 ZiB0BDT4cORmpD0wjUgj jazbrL5mHvj+QmlydGgg SVM2GZt1A0YdEgn7PDNm zWzaAD9exKFpHMre Nh7jkWfmfWbhWF5nLLFd cpwqm537OhKqd6fuUCUt uBIlOObnSJC6A37jw2B9 GJQoTYVxZFU7sQZ5 kL0tzQrzbfqznQFotHop znQioZqdQQepPFzpW115 FEPprPpfRyJxHOw9S4Qf Smm7DKYvdNugPY2u nBZrDPhrHl0ddBdaaZzq XN9oUYBtfcgnc463TePl z2sdWGBsdWZaIJkmSFX8 K25ht4W0GMDdFVSq BAU1uFL0vJ0htXkstlen bGVmdDsgdmVydGljYWwt RCnnA534XBBrtWmrEbDx gTd8W1AwIuo8TWRt nXqzQJ9soHWrGMycGi9g vTbdbCznYG0kRZRnkfqo i212QxApk5gbTTOvxYSz IOroBAI4Y81rn7A8 EVPaFEGoROJ8lCH3cK2m bGlnbjogbGVmdDsgdmVy aJgfQMmbJEwrB016VERr cDsnPlBhdGllbnQg QBvfJBx4Z8CeQgsrwFU+ KR69IBWwRW94uRLrwNTj p5wscPm3QoQlTIBmFGF5 bPbhPRnal8TmXHLg I52vyTLgw2U5XZWsuMzo cGUrYeUweQY3qF4qVWnp bxmsi6ajucccXgjqo2jd lc47bJ81U58bTLzy ZHRoPSIzMCUiIHZhbGln be2szA8jWp4+PGNvbCB3 mIG7zE6rXPNwBpA0NBkv T818ZsAmeXZzJeie z9vpa1yaeOs8LtS2YKZw deRsmBxdGXE7v3MgMy83 X15pFHauBHZaBAZtXLEu ORLleOymwz8nbP3x Ii8+PEVfqRC3yNT4lN1y PfDyQyF5LYzvH415XoZz aNNlBzngD27dE4HubHF+ UJMwPyd4HXJetEsj YP9wpLEeHSkqXb3gADE9 LsFnCmKsFVvoT1BmCVGn ghbodosdkBN2PHUxRJKx gE53Lx8hmZkySJRq eHJKzF8lyrjuz2hbsjvu NkOfIVHjUSw6JTc0THBd wVlsTaJsLPD8QqV1UKD9 pKNboU3rsFfjhdbi mJ1gW1OuBEWxrwkxNy41 lM4aFqNmCyT6QSwkAix+ C9STTexwRX4WN1iWIQcw SzwvdGQ+PHRkIHN0 sZgqMPhnDLEakC4pZURq X1u9EsCvPmO1SLyhM4Zm WKWjjmsnCg59dA3yBaNx OfB8ROhmU0CdqoB5 PCZkfOPnYOeaYCC6N09g b2I7BXRoABJmDXF6nLK6 gX3ctQzonhmqxETpfMkj dmVydGljYWwtYWxp D801JSCscXplMrIhSuC3 TaJ0FgV5B4HaVey2TWIv xEbrZB0cxFXjZQlwTn0t yTtbuFaoOE6xVFDv qxxqJOTvfO7eLPQbcGXs wPuvEV8sPEYwxgrob060 EhBsNOF0EBYytCJkL6Tz iD8gGgWxMHFwMRGn G8SmiTVrVQinZ229MLxb RcS1QUEpasThT8WnHZNb yYxuAtG2f8N2Jo22ZKCC ZWFyczwvdGQ+PHRk LVJ1iNwxYGbdZVJhdV4j KWSqK9w3EeToXhZ4AGhs N5MkEYJvcjfgHy03gK5x XmIbAvK4WDtnD9Ax zpH3DLJlbFLbDLddXWU4 N24bl0W3UGTzHQYuVGX2 eAU1lO1jgWnerrcrwOYu dDsgdmVydGljYWwt FItlT310XPHjtBxdLg3J WSK9I7SvLxq2VTGjiZip RG4vbCTcRZefIq9daPjo qSraFL6vLKYratrw KXGtyQ2qLQCqzSBojSwb EO3yKINwogoab085RuVx NUE9VLWnsYRdW3EbdK7s ZjAfXEMyAUSaJ9Qj jCLnGBhbK197CTrsXbK9 EXWuxtCxE4NaAWRheCug NaW5m6C1Tt6IKKoroCK+ YW87zz93K7RsCahd Ngx4QQDmVIC1yDW8lB4k LGMdTApmc7Q6qTO1X7Qf hbJohw1wc0ssPZDrSXig O01nyVVem5R5FFHq gDI5JRHioUdkTcPatT09 Oyc+IYQinYnmg9PxMneh u2awg7wrtKp1SsCgMAWb xzVyeZxzTPC5e2Yw Gc04W28zZUzcIIXaGPSz CADkTETwfSaqtv2hpS8g Ii8+KNOflLM9zFG3pY3q ZhNyGwA1KHuaG960 SyXygCPtGkony0lcf1te hUi8QsJtPASfwrSyrCdz TRD5c5ZlHm25Y1RpyXfb f1JfHeq7kv73eXNi u7P5tSX9L8OlBRTmacrq hOIeqXrePX8iUACrwyjr IJHkcR1hWMXvS1u7PhJz QoL2CAkqA5EzeqF1 TCWsjKHgCVCkuZYHgP0u gqkul4uxqrrbKgVhHWFm RAg3FEm8QQNwqPhcFwFa QSB4LnE7MWH3iHNp cI4woIzsoflrkZ8jZsz+ TSx9y0qmsDBaHH4raGU1 FV70WL27fSJad9A6lSM1 M0UpLVAdqrftelzi zXF7VKPlWAPxlG16Hs2k iVtyGs3hJESpZNZ3OIEi tYTaZ1JxeR3rDjRsGIDl DXXdX9ZyhYMrSCld N480DWwdHdB8CGPwrwZq D0LgQPHbnDoyKgR0b1J8 Jz5DEQ85FH14VS32gIDg e2K2zVD4J1IaRNIh hdyyfaeegDU9LSLoRGIb jE67In9mqLocSy1cHXYu QQJ5HDJkfKRiV6FfiY0g SbXuKDOyFFWrM2Tk rJYnKOpuQ422BJtpLoD2 SCGnopWdT2CaQUJlhNdl WjN8l5K8Uz2FIa58ST90 TZ99yHBob3O5pAB5 W1VvAEOcyonekqvimSK0 XPVhYCWmfG51Xy1zoCol Gv0oLGEvVAS5WTChbFEg R7NynS9eTgWqYMQx IHWaX1LncSYiKTmpC180 RJwcRvP8UXVtyjKjE7Fj OHTfcUlyQjY4m1I3Md4J DMnnvsf3E6WsQdbb dHI+LU34PZDhOB39nMPd vQOea4jtvWp9FxWpCWHi JQI5nJoqSRfar1CaLKPs E46icKBni1Q5LVTy bGx (more content not included)... [facility] Wound Care Noteon 08-19-2023 Wound Care Note [id number]#1. 00OTGTIFF [facility] Coding Summaryon 08-17-2023 Coding Summary HTMLBase 64 SzpjwoluXBo0vGd+PGhl YWQ+FD6FFDGiU98pgEHd gR5pV2VNMXeRWbkhWKBQ ZJdYCtNaabXbPZ4gcIQh ZXJu IC8+AJ5oNUZtHwgfjMCb s9A0vWR5Z44fut4aOSqz eKE6SHRiPuWcvvgwv0um qOz2RXtqZyspHfCm DSTjxX82MVW6sN01Yv54 eOIfmNYia7sjnAp3BsJr BIRsNOP0xQcrZVbbw9Nl HNKsQ08hgMNtd0Z2 IGNvbGxhcHNlOyBlbXB0 wQ5mKUhxboiyj2wwqasb Rnc1fy15zRVix9Q0jLE9 G5OkhzA7YATuxVWy PstumUPKhB8eiupjs2cz haiqMiIaQDNdHCe9NDl8 IDUrdGleHpXwPP95VYA9 BKMmbrSmW0MoBAEc vFrbDhH7o3S7Up0PC4CJ HktmX3KUBQJZNQvlcOF+ IZ38oo56U1IxHoghJta1 EHIoMVQ3qYF4qH5l ZMYkHDfeo3V4cNZ4E7Ey blIdgt4vc2zhFQLzFRks R94dzDHjk8X5RYUwjDG2 ZGJlnNoiHpTvwT93 Oyc+CNFtbKppm1ItDxbs z5vhi8hnzIw8NqmsCWJj ejIrdFokSFY7k8YkLc6h ACWqhKX9fEY9cS2j SwEgKsP3LUojD427ZmJd fYHdVtmeQ33nJ9MqvCQ+ WVIdFux9HAAgyVtyCK6k Y7WsNJAeiyubfMCf fJniTB0gGARcuhfzWZYh rZ7mNJZtH7i7TaWyOgB5 LQucE3BwMPZajdmeEn66 jX0sYyWwTgD7OFka J1TejuR7JTPdpUQqVVpi MSS6D19ph4G1RVLmHYOd GUH1wVG3kN0lsRgyatoy bGVmdDsgdmVydGlj EDqjSFzcK972CLZqzUiq PkNvZGluZyBEYXRlOiAg MDQvMTMvMjAyNDwvdGQ+ MWEmQAA7oTenYRDh xXOdBPvgOs6quZzweDkc RR6uBJZqasdbVOZayP7s NORffDImsRirEZ0jAIKp twnwq114EiOhQBD9 CMAyuBBaD0KavM2zMuIi POYoSJKrM8GcwCVqFSvh H686KJokFhM5PWOzmwGh M0VbEEFnxJfzXvH0 e4V8Yr2Vd4AhatunF8Sd vPDcToZtStptVAy8B9Cy PjwvdHI+ZK17HJDlJT16 ZCp5GRP5yLkuHPhy FCSoL0HlkX6sZqBvILMw ZGRkOyc+PHRhYmxlIHdp ZHRoPScxMDAlJyBzdHls YL8kWu8tCAVlRLAx jXlhxKHbDqOsf9dqMUZy OTtlHF2fcBkzD1QphLW9 KTQrx1j6Rp44N16qY4Mc dXA+QRWpkEV0yBM4 fK9tWpBfTbU3BFujS027 IsKahOMeXznjs8ftq0bz gAl3HwQ0JEEojgPpfBkh QCN3s2PwSx42I18w IHdpZHRoPSIxNSUiIHZh qKqzyx7njM5qYr1+PGNv xEN2jEX7xM5sWkUuNnP6 DOiaT743QdChsAFo Svfbk4gvs4puzDm7EbUt VANxzdZqgRouJFE3k9Zi Jq87U0HsuUsoc2IbWad9 va37yZLwt9A9hBA5 E0PaUIGxkdmezKJasGkc NL5qJXQcovpuYHRwcP8j CJIxE9v0BsJqHuT6XIbv Y4ZgypH5JKUhuPDp YUAhuJEHsM2ugrwgs8rm sxsyPkJfFVVaTCd6FUd1 XCEeaNdtUoWuWFK1BxS3 UYX1yTOtgQ5okTfd cjobeF9tWpg+GTV1iULs zCZGBI6zAarpyJW+PHRk IKC6jKhuDQwmWHPvcW0c LELjL2j8JvJaBzS2 GSijX5MgmkV4DTKloIBf UJMwyECVvU6fdmsdw9mw oebbYwDcWUJgYTz5XCs9 LWFsaWduOiBsZWZ0 JkR0OZV0hFPwgV6tdEzj movztD0kJbs+QmlydGgg KVJ5NNs1R8UsJgn2VYPd pDwvRJ2qoFRzIWav Ig7xyOoqtOnuCM0bMUNt iyzce605GbWhp9yuXMIr qNPcNQnrTYB5G19be7C9 TQTkPVGnLAW6gWQ4 sW1pnWtrwewyuKTmkCsh vvWeyCuaRKyzBBpiX312 JOCxbRtuYpTbQSm2K7Fy Cry2IFWbgBeaLD2p fUKfVMhoZv8rfVvfpKwg BQ8uYNXokrbrl599ZmKa n5biKOTqhPPvKVhdSSK1 W67yq5R5YREfAWQe MFI8zGJ0cV8huKrpkagw bGVmdDsgdmVydGljYWwt LOhjR754TMXlcLwnHrLa iKx4M0FcXil0JZTx aQrhTA8psYGmQKdkPg4u jEdsaJhxUD6nIXCiumtn f245RjXzp0hrVYFsqQHn UYztMHI2P91zb6S4 KRDuZKDdIUL1pTO4eQ3w bGlnbjogbGVmdDsgdmVy qRnoAYejVRshJ333LLEb cDsnPlBhdGllbnQg QNstCCk2X8IyLkecaEV+ GR27PIRlZZ80lDNdsBIs o0aonHy4DhZuNYMuKIX8 uYpoUOsmp9UxETKk J97qpNUbr3J8CTZyeStm iRZsMnUkwFN0pF3oWRju awyhk1jccgiyMtzgd7hp ob75cM98Z35aPLpw ZHRoPSIzMCUiIHZhbGln ac9lyO4oUq2+PGNvbCB3 jOQ6kV7nBZUwKiB8OVeo N433ZfGtfAWmOpiv z5oee0spvXy1ArP7HBFr pfLysPbdGEF1d7YgOr48 B10wPZklBETpRCRnXQYg AEAjeOiyvn1exB7g Ii8+JWOwzRK1uRC9wW0e FwQkRrH4NOtiB327MmTd mAVgQufoE03dJ7DfwJT+ QPVjJot4MOXbhIoo HE0kpFVlIRlvUd5wRAH3 SrCoObMfMTqsX4KdAXRr muyuxlakzHA2LKQkHCLj eR16Sw0orWusRKMm sMUJnX2bihjuy4yfmvsb XrFhYGOrHWn5MZx7WYPo mIjcLcQpZWE8BbE4VNX6 eOOpcA6fcUpklvli mY4tJ0HyVLVqmnfgMp15 zE1sOyXuElJ3HYqcHoz+ N9GIMxtzVO6QF0pAKStj SzwvdGQ+PHRkIHN0 yYgqAOigWZCtkG9mUDDn B9u1FaFgTjE3SKkeG1Bm CTNvjmsaFf61kU6qYmMt MwU3PNajP4CrdoE2 PKOaxMHfJLhoJSA3M88g h7U9HYFdPIPuRWH4zQW7 hT4gsQwpgdnpdXVwzTld dmVydGljYWwtYWxp C153VGZcyPhpSuXpFhJ3 AoK5PaT7Y8CwEwb8OMAc mVrdTW9evMMoDEbpGm8i wTbwaDanBM1pSYEg mrmoVMBuzZ3hGAFnuYSa gPeqJR6rXLZfrtsch092 EoCzEWD1XTPjaBKdF1Yd uF2eSlMqAIMvHMBy B7OxkXVnFLevH637DVqu AtR2ABVkabZvR1UmWHRi lGseOrQ8w9A1Ih28SFJB ZWFyczwvdGQ+PHRk OBV5pNdzAYhuAGKcnZ9p AZHaY5p8VfGrRhP0WAgi O5KuSYMagbspUw07tT9g QxIbNpT3YOvnP9Ha dhN8IVOxcORsXBlsQQX8 V75io1T3PQTzMTGhPWQ2 lAM0lN5rwCshnnumjLKx dDsgdmVydGljYWwt CGmcG766RJGqhAgpRp6Z FBJ2Z1IuCyf6ZNIieZgr LB1ntQAdXUxsJn6shJys hZkjNF1xUWQvezxw PNEapM8gJFXjvIUgjNyj CD9eHKRhezetj457QjDe RYM4HMEmqMKxA0QmcE9z ZtKoQGKyZNQhX0Gs zWLrSIbbL316GOnvOeV5 DXEjsbUeV6OcFEGqaQpq TeI2c1U6Vt7UYUuojOM+ ME33fb05R3SwZren Itx7AOLmLFN0qZG9iN2p TQBkKMkwu5X1eYF2F7Oq vrYylr9im4izXHAzHVgz U84beVXmw4Z5BVNj nTV9RXLjhXiiCnKqiA16 Oyc+EXTfyLzez6PzZiaj o7ubo1hrfQm3WsDtTUMa spCssRmtYXN2i6Op Oy05F60pSEqqQJBzJDEn PPXaNDCorEpicd7ekU1i Ii8+AYAwwDY4cBY1gE5z ApNfOtO4NGakH182 KnOroGUrIipkq5edm5ic mOh4RoWkBANzugRmwYeh YAL8s3RaKl38Y0JhaMwm g7HyRzd1br25dDTn z4H4rNS4A0RzBJSuhqsh vYRagUddUI4kTERjhnfg IVGzcB5uUNAhY3j2LjPt HfZ2IMhmD9IzvuF8 LEIodQNbVWPlnTXPwS3x rqmxu2wrhzbaIiChNUWt CXe1MYy1CSUzsXvaKmIg ZGB8OkU5YSH7dLGd yT2mbIrpohmhaW9cQuy+ FKy5n4svpBWdAE6vuUW3 RV83XB00aCApa5T4xLY6 Z5NlICHtbmjejnvu nWS3ZPIrUPIpjU99Pu3g uFdiUq8bBEPyLKF2PIFi uGVnH5FusN3eJjIjWYCu NLHyL7RwaSQvMRfo Y704TShyTuA8OGRbwcKc J8UzKVSbnKbbFfK2c1G1 Dz5VUF85YE80NL91bOQu t8U6sTP4I8LkEIJw ssimutmclFC0IHYiSPWo bK52Yv2ayJdqTm7sJJRx SQU3VLRcnJGrF5XnpY7h HkClAGMkIMKrV1Yy dMDyHGdbJ612DCswUxT0 DAHpzeYrA1TsDNYcsGya SrG8t0T2Pf0AEn23FE12 SO83kVFuj6D8mHH1 E1IeODFhafwojzadpBH0 KOGjXJNevK40Dr2wbFmv Jh3rVRIkQDA3XWTnhIEc Y5JyzJ2tXoQzKRHc JJCqD3PodTQsAHidC424 LVinZjE2HNAbuhFdK3Lg ZYJcmZqsSwZ0x9X0Im0M WCsuafl2G1FxTatz dHI+RY50MTRrQP15kERc fCMog4iflMx3EyNtICVl ZXO7fTopKPgrl4PiQMEh Z28ltITtp2A5FMQo bGx (more content not included)... [facility] Coding Summary HTMLBase 64 DchjrgydUTh4mBf+PGhl YWQ+LF5WHYXlZ91cjVTs kN4nC6EGMDyOPfsnTRAG EQcXVqPkadQhEE3cgXAj ZXJu IC8+WH6gJSKtCvyvdQBw t6F0aJZ3X07bin7mKSwt pCV6UYDnTuVqgthmp1ne oOz4OQufVcsuNrCp MDYkdO70NCQ1iF55Tb54 gQAazQOnt6cwoIq7WfSc FQGbNYE4pRzeDQiop0Mx RETvD04ovWWso2O9 IGNvbGxhcHNlOyBlbXB0 eC3lNLeajjiqt2iouwmv Igj8ml79lFOfr6N6kOJ6 H0LjkqP3NYAtdACy FtnxwMZXbT0ojzzwp9cy xgpdOvIqTGGkQSv7AIn4 EYHcaArvHkRzVQ56NVY1 CRPlavGvR5RlYGXi kZpwIeW8z8F2Bt4NY1GZ TfjvA6OQFSEWRVpxrFN+ UV28kb82G6NmTbzrLyu8 WZScMEJ6rVS6wQ4u POLiRXkrm8L0zUV0O8Zh loZxne1so9ibUOErUAzp V88tqCCux4Z9AXKklCW9 RTEwvOpoRiApaT61 Oyc+ZSRedSfvk8MfWvaj u0epv4zgpRd4ElihNCCr gjKmwQbgFRG0f4PpIu4a MEZnwCP1qVY0hA4i CeReHpZ1VWcdD107NkPq kQAlYzisI12sF2DtlKR+ XOErBvu7MTWgdRjzTN5u B4QkMFAzpdptwUVn oTnyIW4cILCexlmoXAGk kU1jIOFtE4q4DrQmOiI7 LBguI7MwGEPplgcbJn38 pD6vBnSeSmP6OIsh E8FqvvW4BYCegZVgESqk XXJ4K75fg6C3WRAmFMDo QBE0rAF9uG5apTavcjkl bGVmdDsgdmVydGlj QFqkJCfbK711CDQfuBmj PkNvZGluZyBEYXRlOiAg MDQvMTMvMjAyNDwvdGQ+ LMBaVTN8gFqcNUBv eKInWHnnNr3dwFeksXfk UL7dHPFhgmrnMPKcaD7n PJCciIRxvUziTQ8nNZJn jyrrj774PrHnHNJ6 HYEhkTRwS1WowN6xMpIp MJFoZKMgX4FeiLYzVRyy Y088BNoeWxU1IKSawaOk L7ZhOLGdiVauTaC8 n3W0Ol1Nx6VxzxriZ7Ag uJQjSbOtCdikCFg9U4Sp PjwvdHI+JH97DHScZG37 GEg9HQO1oXvwWNjd LHFfB3GtrI8aGaXwFSKy ZGRkOyc+PHRhYmxlIHdp ZHRoPScxMDAlJyBzdHls UX9yFf1rIFWcRMTz dYieeCKpNqSom6lrEXXc HDalTF4smRdyM0IhzIU3 GVVyg1x3Uh15O03wE6Zl dXA+SNWabVM9aSO5 dU2bWtQyOxM1UBvbD759 HgNdzPAoPgpoh1ovc7li nWg4UaS9XVLoamIccQyy YZQ6g3HhQn20R20k IHdpZHRoPSIxNSUiIHZh kRyxwr6oeE0dOi3+PGNv aAK0mNQ5fU2pShOrXoM2 JWytP529IaAyoSNf Hucel2yot4ehqCm9JkMx JVSdgyYtcYwoEZS0d7Cl Ev45R4YcbIbka5IfRrb1 pd76pEGip4L2sWH7 E0RhUOMvxolthIOfqZci VG3fDOJciklvUTIswM2w UFAjE5k3LaEpToM9HTtz T5LglhP0AXCrdOAd EBTdlKWMtG6efztkc5vv ixmlXiLxPFMwNTu3NCe1 QJJhqWkpTmZpQMD4ZoY9 VND5yVBgiE7gsOsk hcwvyF3fFzl+MHA4fHEa nWMHIT9bDgjdlHB+PHRk LUO9oDklWFmaQGLxaT1m PQLuG6b3SzDqPvN3 BWybV9YbvkC9RIZhxLDh YWGlxKFSnW7lhkird0yc kxgrPwFmYRJwEBx0NBm9 LWFsaWduOiBsZWZ0 VqD2YYG4lQLwnI4xmGll ynigtY7jAzx+QmlydGgg DML6EKs1T4PbEls7QPFu dNciBM7fyUIhEAyj En9yzIclnHmkCC7iFJMm ekpct540FmViz6xeZTZm aTCoGAotKGV7M14uw5T5 XQWyZHJiBKO5xAF1 lM9tnRqcxagopXFsgHks zpGqvKbaYUbaWXwuF751 OPQhtReiGcGcIOn7O4Un Zkg5QVGexJnxUT9s dBSrJKceSy0bqZjprTat TQ2zHCHwivclh153JnGy e0icNEBieIOnCOjeLTR4 G88bv5P1JEUhKCHh PJT6jUA3mA8hqTgwurin bGVmdDsgdmVydGljYWwt SSyoG585ASKzfEgmVeSk gFe2L8YtApm8YNOj qVlwZH5xcEVtGXahYb0w gFnbdTnhFX8fDKHckfqc m222FmSjr7loOFMlwWSg EXraFIR8W50gj4V5 HQEsLGNtRGG1fDE7pS8j bGlnbjogbGVmdDsgdmVy yTmeBMahXVqnD613FYEu cDsnPlBhdGllbnQg LPwtCMp8F5FsIyopyAT+ YA71DZFlMF14oBIaiKSn r8rhmWt0OhEpZDSiDYW0 pPkiRDsen9UoIFDm D81bhMIyq7Z7QWCenTcf qQLjVcCvqVX6gB3xEUkx vuxlm9wjtikdOfyhn4mg ku00yP31I65fASah ZHRoPSIzMCUiIHZhbGln qo0pzO9zIz2+PGNvbCB3 qCY7sD7wNPVfWuO9OWde R115LfFslRBpRehp w3kms1kfoAa8WnR3DFHn gjTqvIgqXAH5e4QbVo15 G70yIGmoECOwDUEvQXYg KYYfjRqsqe2xxS5u Ii8+VOEyiMZ5gAA1lQ7t LlHjDqA8JFttM072FbQo gBDbIorzM33uA9SsdGS+ IPLcBbd4ANOskWsu GB5kqIGtQPqnYu9hKGK2 VrVfOlNpKTsvL2JaRETa xxrvqwjmfNO2QISeTONg eO90Hr9woPswOJNm aQDEvF8fvejcl2skksrh LrCxRDLlNEj0KRz0QKWj qGopOvLbVMY8FbZ1TXV8 sXYifH9yyHcqlbck mD9pM5DnSJAjpuxxAi59 eQ4kBoSsXaJ5JCocYzd+ I8OKRaoeXJ5TK8pRSCjp SzwvdGQ+PHRkIHN0 dMixBRdcBCDbiS1yKAFl M1l8YfQcYfQ6FFxtZ0Co KYZohgloJb33aR9fXgYk IvW5YSxyL9MbruP3 HENywTYySOpdAAW6U11r h8D4MRMoRLFgTVB7mVP4 vR9gmGravygwjSSlsHic dmVydGljYWwtYWxp B630YJVswNyiUpXaByX8 JoF3BtE4A4AzYod4IHBq kDmvNC1svFOyUBxxBu5q oWszbKbuQV1aSILp ijgvTJJaoT3uFLDxvBRq nKckZK9oQZVpltexg983 FzRbKHW9VDJzsMUxN0Sm lY0yOfRwHTXlPOAi C5FseUXhNXfsO631XYnp GbW1KBMyfzUkU8ZbAZOe nScjSlI7y8U9Wd14JWQR ZWFyczwvdGQ+PHRk TCQ7uRblGGmcBZImiC2k LBExO6y6LxCiGrW6TMpv I8RcTWWyurmqVl93qF5f DuGqJhY7CYxnA4Jy swA8NKAolSObRCcuBPB5 R58ty4C0BEBzFVFkUGQ2 lZK9kN2rkJupxqjmqNPf dDsgdmVydGljYWwt ZCfzW131HGZbkGlmKd3U KQT5X0CpFck7KTJctMks ZV1zzVDsXZorRp2nwCxf mWtpUP1vXYTlzrgr UUTunX4sRAUvaVLudHgv SD0zXRYcqqqmz560TrDx XEA8KODzhWFzP8SxdZ0g CgXmXJYlLHWcL4Yc vPPmGOjhZ277QPpdDlT5 CGZrnpEnK1UkSAMntWdw MyY1y1D1Tv1BLLlslJG+ RS80cc05J5BkWkhz Ifu4YGYwZQJ6gGB7dM6p BVUbXOact7H6uRR2Y3Qz zbUmdp6ka2ohPEUxJBss Y55xdJQns8W9UXQx pFB8PUYlxRprAiQabE94 Oyc+ZCZrqBffj3XgVgot n5qmd3nrqNf6CxQkQOHq rwWboIchIBQ5x4Cj Wb17N21xBHcvESFiPGZz AQVfQGBywIlhld9xhZ5c Ii8+KEBwjXN3qFV1yS3s TdKqWtA9TUtrQ417 GjGahYJsZnbfn1mdp1iw dHs2GsBlWJDomdVpfGrg VVJ0f4IjDy29A9KkjYik c1NmFpt5oi82vUFj v9R5gTW4G2EnDEYpaiye sXUckOmtSX5dQHRtufxa YHCfyC1qGUQyN3s0YmXt OfM7QAzjN7ZpkaA5 HXAzrEQhALLruFHJhB7y gosdy5pemworDcEfFEVc DTp7NSb8PHYtrBqvRsTc BAG4XtK6LAM6wMLu bC0ncDwnudxwnS0bVgs+ RWd8j0urrYWyIV3fjOL2 FZ88RF23qARdy2D2jAP4 L8YeCXAqcicxyokq wOK4NTYjTNZpgA44Jx1l yQgqGn2zNDBnZJN9PHVh jSUxA5CiuP7wMqCbQFGp ZABfQ1WhqRIaDZgb A645LEaoJmF6BKJpsyYk W1WoLEZkbBhhZwL5f8O1 Jc1KLU84GH93GZ13lFRt j0V0sYK7Z9UhIZXz fikckavhvLM6FKOmSOIa pA00Wb3bbRdfTd6wFSNf ONS4TQZisQNxL8AroN9o CpKcZHRiSPShS0Yz nEEcOQlpQ209VTymTxV5 MQReuvKwB4KaJWQedEek DeX3z5P3Ll7ZYd80PS99 UD95oBByu2B8eCS6 D3HsHOIeggkdsrwjxSH8 HJLxYAVxlV70Ws2llKnz Uv5iDZVcKWQ6YFAqfGLn C6SczU8yInSjWTPz TRCmQ1IriXVsQOryT341 MYztGoY1JQEdubZdS9Ky OOXbnUdyEiK5n9J5Vk2L NAoereg0O2GyNdmo dHI+BH43CVIgND20wRMz fXIae0gcdAt6OvZsOUEd YDH9aXujAAmww9GqWCVn T85cvOBmo6X0EKBz bGx (more content not included)... [facility] Coding Summaryon 08-15-2023 Coding Summary HTMLBase 64 TgoczjpwHZv9iDx+PGhl YWQ+MI6IFEDwV75cuCPs lU7qP5GULOxJVwuqHXUE EInTWzMshpWoIR0qhQQv ZXJu IC8+KZ9hDFRrWkfrzPMm z1M1nHG1H41ndm5aCZoi uHW2SXWxRiCcazivs6iv pFv9ICdqPbltDbNu OSJokY35YEX7gC13Mk64 lXMnzINba0qslEz8ExLt PUUpPZA4vWljBOrsk7Bv VSDyJ91dzBGha8E3 IGNvbGxhcHNlOyBlbXB0 mE7uQWgiqjfzj5peyfqg Ufp3ih81pNTiq3V4dUN5 Z2NivrV6OCDapHNi DsaiyCCSrY0hmbtlg3ce tqrpSkGrECGjFXn1NPm3 BBGbfViiSzTrDG55UEH0 JCQszrZiA7YxONJg tTakHtI9p3J5Qc2GV1JM GdcmQ4MIRILUQCdrgQN+ HN57qd36P1EwPreeLnu3 UNKiIYL3dVA5uN7n XOCvGDfsj0N5qEG6H3Si gsUxkl0pd6ckVNPpTSyj Z37wxTVty0T1CCCwaMB6 EVFsoLzoXkDrfF40 Oyc+SBImbKqjk3YuBhwd u1hda3aglLv4MbaxBPKs zxVhtYkjOQE9d9CiUr0o RMSwkJY8iSD9iY6j XlPgNnJ0BReyC767HoJm jJAgBmegF90aN1UqeYC+ SAZdEjt3QIVviAqvUO3h P7AlLBGfykcvaEGf gOrqRK9rLGKgmtvcDNSs qC3tDNEdT9x2IvRhNzH8 YAzbH8HtGALdagtjIt41 aU8nAbRrGbM4PYch K1CgayK7LTPkiTRkMPab SAW5L68iq6I1VVXoGOVt TSY3fGZ5xN3alKiycuew bGVmdDsgdmVydGlj KSniBHonX575GDWisCoz PkNvZGluZyBEYXRlOiAg MDQvMTEvMjAyNDwvdGQ+ WLYwQVJ2kMrdUOKp cJTcKGahEi3mzCdoaVkd IO0bTGVbfwjfUVHvgS3s ICTzzFTcyFcmHP8cFJCu xokmq293NoTeQOI1 NQTqwRIaI6BwsE1rZzPp MFNmGXIpR1AsaSYrCMrj T674QBmnUrJ6JVDnqqNy X1EzRJDluDfwQkQ6 r0H9Xg1Vh8FbebnkT8Ti tGGzSbJrMzqdEKk3T2Vi PjwvdHI+LI36KYFdFK59 FMu7KYN7oKspANqc YAEkL3ZdoS4dUxDjENBd ZGRkOyc+PHRhYmxlIHdp ZHRoPScxMDAlJyBzdHls BW6dKv9tSHDgWMAk uZrnnKDlYxUkd2ufTBOb VEssTB0bjCivV6ObyER9 SYUtc3e6Wy82N57zI0Xp dXA+HXMawIK0vGW9 yU5oHgSrOdW9YVhuO792 ZgGbsPQhFcqfb5qcn5xx rDw6WcX3GYKidiFigLuj YNO1z9ZaNa86D70k IHdpZHRoPSIxNSUiIHZh lSdiqz2zaA5iUq0+PGNv qCQ4lCN4lZ2wVjFvZzU9 ZGaqG486VjWysQDe Vlmak5waw2bbwQf6QsEp FFRwbeDwhGceWGU3y3Oe Rm72O4IijPubh7ZqTls4 fp62eYLbn1B1aRS5 P9FfAQHubwwiuERidZrm PA8oWVXkxijxNINljE7u RXEqR3a1DiMtWbC5NGar H2TzbbO2JGXbjGQo WQJxdUNVzC9wakvvc7do yrgcBmGkBOMoBEt5OOs6 PRJfkCmkUaZnRPJ3NcV9 ERO6vNGuuI0doIcl exqagT6pJzg+FAG5cNKq nWWGCS2nYifyuEK+PHRk YJK5nFniZEopXUEsnK3c EPTnD9k3OoZtNeG9 DGuaU1RaecC4PGHirRQi WXXgaXZGoQ0dfhvrl4dp gizlYsWnSNIxRMx4CRz5 LWFsaWduOiBsZWZ0 MvI2DJX6qTJgaE1nbSgu oxvgoX8bRfj+QmlydGgg FHW4JKs4M4AkIem7MIJd eKbsNI8njELqVVvb Ab6qjAduxHxzZC2kJRNb vydmu540AbCci4xsSWWr aSAgSCbmECY5U91gj0X7 ROBxAXRdUGH2fBW8 cJ8hqEezqdpxaYHrdQuz wcAeiDirMKthIFkrF193 NKGdpFmkLeVjOLy1R9Kl Pmc4TIHhjAmjGU1p bPOvEFfsRm3orYwxyZdb AP9sZTDywbksm434PgNx l9ojLLCpkDZrHIekRSF1 A89jz1J3HRMjUOOc PXS2fTT3zF6leNllzdnv bGVmdDsgdmVydGljYWwt GXibS821ETOgkSekGnEg aXc8J8NqHzn2EXAl nDboLK9tvGTnQUfeVc4m tYrmyFdgWN2iUESawnft i909ObVmf8rgEOXxvWZd GRguTKQ6N11wy0F8 XJXfBYTxPQF5hGG5dP9p bGlnbjogbGVmdDsgdmVy kMwfUTmeNBjwH011TXYj cDsnPlBhdGllbnQg HOgsAKg7H6UiYixneZA+ FF27RKYwJJ34iALhsSKl d3ojeWa1XjCpLNSpPRL1 pSjpKHnud3DkBWLz R15qiANrx8C2CFRklPhe qKMoGzQlzJW9xW3aPEjx nqclr0wvuxlsHemvo8gz kp06uZ71X22yUHdh ZHRoPSIzMCUiIHZhbGln jk7gzT6wAk8+PGNvbCB3 xUE4oG6cSFGnDuQ3RUtl Z027WbXfuWFsCeyk z1npc9whnQd9FwV9AFCh glAmgTowQEP0x8WjDf59 S85iJHfpDPUsSFOoCRJt AYChdUqsvt2luE7s Ii8+YRUbaYD3jJU2pI2v MhPaQrG0GSjlI652AfVa iAFjKushW27lU2XoeYL+ DBTlJlz0GHYrvRwp HK8knBPeBQycZv8aLAC3 VbWoHrVeHJwgN1StIXKm lshabwcfxHN4NJRhSZHn hJ88Ez9doWclSMUo pBOByU4okyihj4dtkjcd XwYyWVIiQMk1YKr7DTZi lChhHcBnXKE1RtT2LNB7 tSIaeH0elTilakod lB9rJ8XzZCPmhproLm32 nZ2dJrTbJyK6LBxsWad+ V1DNTzshGV7QR8vCIYmb SzwvdGQ+PHRkIHN0 tRqyZQxhOOSgyJ2gMWWv S1x7OoVfXlP1MDyaM2Ib XFQtrgklTs75oB2jVkQj NgS0AGquU5HiijV1 YLAdwMZxWHkoXGY2X39m o5E6CRVuNKFoEIE2rWD4 tB3ibHhswmwsyUPgfXpk dmVydGljYWwtYWxp F500RKJkhYdfFxXzVkU7 EeG3FfC3E4EjOiw7XDEw kVchGE4rpOEbIEowFr5x xNgkcZujML2mYMDr lhxlQHWgdK4fQLZvgFNm iEagMT3qHIJiqgyxg943 SxXiRNV8CYDeaKFhY6Nh zG9jHiUfDDOjJQHi N7XdcOPdDBdtY575ZBkv MnO3DLDnuaKtB7JdPLJw zTdvQkM2l9Z8Sf73VHUT ZWFyczwvdGQ+PHRk XBD0lHysQRcvKXQpnW9x AXPsT3w2JeQgOpY5BAde W2MvIPDtkrsgFa39sH6d LxVxVcB4VTxaN7Yd duY9CBCafNCkBIzzSWN6 V42ex1J7PLWhQNNtTIP8 uIC8dY2ktXusyuwqbYVz dDsgdmVydGljYWwt WGzaY952XKVwxUpyWf9D ICS5V1BtRjc3HFQhmHln NF4dpBAlLPdbPx0njLbu oOrqGQ3sDKNedsgi VKSfpK4tSBHuaUKcnWiz KF8tXRCfbfkbx800BhCn RTN0ORMnxIDdI0DcgO1k NfGoCYWdNKFpB2Dd bUAeKCteQ328ZEopSnJ6 FFQtdrQsZ0KmWFLjwNmm WmS3c4C9Yw5LQZbsyAA+ TK69ht20K3OvUmhf Eww4TYSpQOD3kOG6tY0k ENEvWYjrx4H2pSF2J1Gq xwEhsq3se0ikXNTnQAwf J28lyRYqv5D3LBJo wVG0ONKsgIxsKcWcuL96 Oyc+RWXckJngz0MtJrng b4eaf8bbvQt4LmAfECIy zmCtwAilCSL9h3Uj Jr96G95gKXztALYuVWRv FRGsYNRdoNqafp8ulF7g Ii8+CLXxqYX8yQO0aP1u WdBfXmB7RPfrF012 XfWxuXPzSiuql1mse3vq rTx2FyVxXPCgmeErtTkc GTD0j8BaMo67W3HbjKen r5EbLip6qh44jMYp h0V7tZQ7C9AwYGSccmsz mBZeiGqgQF0cQOAnemhi QNOzhI4nBTVcR0k4QdHu DsE7WZxbW9LrybV2 VEQcaNMrGBXirSZXhS1r rjstr7mlfambVmOsJDCc RUy1TLx7TFTvpZcjMoOw VUR1QpX0PYW2yCGa zX9cvRkclomauL1dHtw+ IOa2c8wgxOQeZQ3kiIP5 CS41NJ92vWHqt0P4wES5 I9ZkKTYizrdxvpsw kNJ4IYDiKEJfsG59Jv7i qEarVt7qJVFqROJ0PKNk nGWkK3MnnX4lMjMfYADj QNIuC1FukKJkEMmj Z011POqqSyF5EIPcdwEz X4XbNKXyrUsxKiW4l0W3 Ox4WKI71QS98DD46hTVo a6I6tMH6N7RfTHKo eslooccclTX7PUNzLRKf wM33Nh4mgZmuIc6dWUYs WRT1DVMbgGNpC2NlkI1e CcDjNMOwDZYzU8Xp kFCrWIflN134KWssArN8 QYQmbkBwD2SqFOHnzVrj XgP3c0R7Yb5VRw66ZS77 MN42dAYof8M6wTO0 K1QwEGZnvhewhbrgcWQ2 BJEzPSFopC00An3dkPho Wj4xHIFiICL8XKKrjUQe W7KzqH3jYhYcLNPu LIRyD9CkaPJcZYhdW504 GEodNmP5YGFizmEpK2Mm UNIegHnkVvK9o1Q2Sh1W KOpytny8L6TbFjil dHI+NL78IDDqIN19lEBb cUXgl3pcwOp5ZhQhSTPz DYY5iDzrCTuub7WcPFQd T51afAHbx3P5RVWs bGx (more content not included)... [facility] Coding Summary HTMLBase 64 MeufygwgHDw4vPe+PGhl YWQ+TN8SSHSqB03emMXa kV8rY0ADRGkJXiujJECW QRdCZzJawqHwOA5eoJAf ZXJu IC8+QO0aOYXoZdsavQHa c4W8oZW8I50tmr3kHSru oDX1XEQaPqZloyjpy5ys zAz6EQtgCyziBdQo SGPrnD30GXB6fD36Pi04 eCAmxKOeh4zuwNr0ZzBm HXOwWSK1fIvuKRbgx4Em NPAvU92mjSWve8J2 IGNvbGxhcHNlOyBlbXB0 bE3hPEoigmwhs6ubgwxy Wab5av48aTFol2E5dAL9 R6DqsoE3KSOejKPq KdhwiAFSgK9qiaufj4gy uhblFfWcAHKkNGq9QDj2 UPJwhFgfTzKjXI53LAF4 CSKmueSdD3NdHZHr aDgdZgQ8y2P5Qd9YU6WK BsnuH4MGXTFDHEydbZF+ ID87dd57S1JbJmjgLks4 OSHyXJX9zBM8rD8u KKBjAEvxw4M4vSG4A1Xn gkRgxt3gk2npFZSiJEev W88trQXkj9O2PSOfxBT9 QTCmrRblMrQgxO22 Oyc+SMPzvIqax6KxHujr p8snu9byfEm8QnejWPUt cdRiuOowMRJ2u5XnVa2r XKPmcUI0fEK9yW0z PvLwDyT7LQwuN875TlHw yKWtFfmiR65hY2FnpGO+ HYOkWgy1NQVtjLwkHG4a L9UiBPJuivhziBFp zBchEH3kDLXbqiukKKUc zO9hLRRpR6n9CyDfYyT6 OAmfQ2ArVJYlygjzOf27 bP0wOiJrCsS0XZoy I7AbmkV3QFDrmKFjTHzs IZD5V87fa9E0XCZwSRFd RMB3fYT2wY7bjXctbomt bGVmdDsgdmVydGlj FAjuANreT650XUXimJva PkNvZGluZyBEYXRlOiAg MDQvMTEvMjAyNDwvdGQ+ PBFoVVI1wZebYWIy gHDpBJbvWt2qySgasIhf RX5uKYBbgprvBSWdvA2g RYHmiGEygJddGK9kVIKj ohifd393YrDcBDD3 RNNwjMZjS0AxwS8sDuJv ZILyUYQnM5BuyMJkWGqx O523WMhwZzU4HODutwPg X8QnJTTnxOllBaM2 v9J6Gz0Ga8YkidmnF3Zp oMEeOiEuClzeLNd6O6Kt PjwvdHI+XB71FMQsHJ08 IIi4CBC0iNvdMLwg QROiX8AisE0oKgFyJYRp ZGRkOyc+PHRhYmxlIHdp ZHRoPScxMDAlJyBzdHls JD7sOe7rGPOoIXLz sLmauOWyOpVyp2gwZYEc BSaxIM4ffUesI8RtrLH7 QFAde0r6St43R74aA6Qo dXA+KPSpoFK3fEK0 jY4gXdDlTmW0JSjoE224 QdYaoSYwBfnqx0cql8aj hGl2YuA0LDHjboEexOor YXX6q8IiGz54Z73o IHdpZHRoPSIxNSUiIHZh mJdpuk4hnQ0xDq7+PGNv dQF9aLK4tH2uGyJxMbO4 QElyI357FhYriWWs Tydtv2vfq0oxzTc1SlMi CCWaayHlxFbpPIZ4k7Nj Qf30J1EqhNnzg1AuMgb5 ni25bOKio4P9qZW7 F4EcRMRfzrxlrJYhsZjr AS8lHZQfdduvZXMutZ8f UOHaP5a2PkNbLcK0XGtn K9KkplF1ODFjnDHr KLIddTNKnW6rcpaet9iv vzwsCxOrTCSvBTf2DWf6 DCWfiIvnWhYpZDQ1YvJ5 DLO5hDJmdI5dwTde trtioV4dMoa+QHN9jTKq tFQOAW7lFcsheHU+PHRk PTH2tHeqIOdhUEAwdA3z MBIxW1c7GfFfFpV6 HTqjQ2CxaqO2JJLloMWi XRNqgZTIoD6awtsld1at wuelLrZiSLSgJRd0EVe9 LWFsaWduOiBsZWZ0 QbB7ELX9dCSzlX7ebFue omaovJ8jZhc+QmlydGgg PDK9MDv5K2OgHpf1LGMf mZcxTL6gmOXgMGqy Gu4hrOohtWjdEU2zUOLv pvnyl685OtKlw4gkGETb wDWkIUjiXMH8A92lw1I0 UYShJUDpOYQ5yPO4 jQ3exMuwmltcmWImgGec fxAdgCueEQqvADxsH436 MCUovRvlXtXuLEd9U0Ts Ibq4CCStxSrmRX1j mMSwGAczYp4qnFvchHsk XS3zRFKlksfok164LkTo f9cmSIGujEEmUDcvCGD5 V41uu8M5VSLbSWYr GKD6dKJ2vL2dlGimukyt bGVmdDsgdmVydGljYWwt ILncB406FSEkkEnzXxOz cAv4P5RuMzd7ZSQw dUphRQ9arSNfIQcdCt0w lVueuGifMG0wHVQjwjwe d296AxPwo9oeLQOplQEw VVkuJJQ5Y31yp4X3 KXPuNRUrYKD3uXC8lG7l bGlnbjogbGVmdDsgdmVy oWszZBkpUGxrZ576OBBb cDsnPlBhdGllbnQg RCylBHz0D7VeXeyidYE+ LN51BTQzRS26zUJnjCDm x4smmOb1YzXuQHXkZDO0 dTgfOKkjv8XzDHEs S37cjHTsf0J3OQVwbAdv zBLpQsWkuXM3tG7cEGse egvdu6vwmnxsVvryo6nr oj33oB90D26wWSob ZHRoPSIzMCUiIHZhbGln ix9xdX1fYw8+PGNvbCB3 rBA0mP9sHKNpZmZ4QRpw N410YdUnsTVzAnpy q2wsw4jkcHm4WuE3HFMq eyHqpBxiALR5y3HyAb55 B63iBMmnVWZsUFRdVFTr SPEcvKnkta5zsS0g Ii8+QLEuqLL5gJZ7yL4b MmIxIsY0AZbyM025AeQz mMBjYlqtT27wK6LdrIZ+ QUBeTqo1QWHyzNpj QU0etJQjJMboOz8zUNZ3 BsDiXhIkABsfD1OuLQUu lqrcpqytiLH0HHPrTPJx dO69Kn5bgSxtUBCf pRLIbV7dadhkk4yqajow CtZmZHInOQg7SAg9SDSn lQzkBfVfNEQ2AzQ9GSV7 rHUihT8jkUynkfyd aP5mK5VvQOMcuauqYj79 aJ7jRsWyRqS7FZgbAdn+ P3EVRvefVT8VY0zZUTzh SzwvdGQ+PHRkIHN0 nXrvUPamRRRibT8kBHTu W5v2DnWfXkU0UGyuJ0Sz RUXrmhplTc19eJ8rYdCk BhB8SAiaY6PefmX3 EAQnaKDjXAzxIIP0H96v f5Z6YDZpEBUfSOM9kUM9 tJ6xnMiadzahrKRzrTtq dmVydGljYWwtYWxp O743XLQrmQqwUxMnMgR2 TcN6IbH7T5KjOzi0OBLf wZfpMQ8emBAcWBbzBj0p rFwooZasEH1cZZMj bcxkWHOvsM9sCIVaaGTn mTvoFT4uYWIbmzpsa992 RxMtAMI9FAJsyMQmN9Sf jO4cAaSyOAMhXGIv J6EzuHOpEZmuF873HRxt WmD8JJDjymKfP6ShIHMe jXoeZrK9q9V5Fe80LAIG ZWFyczwvdGQ+PHRk LKD4zEfdRSswITXzeG4p RBPcB6s1BsUyQnA3KOfu O9IcYXVjclmxTv23jR8w KsVcQvE5KSdlQ5Qo mxV2WMPjvOQsUUkbIUN8 P88uw2F0PWGePLXeSRE5 nLJ7xG3orJvcffbhcRXc dDsgdmVydGljYWwt BNxnZ351TIYwyIquRb1Z FJZ7K7FoTtf6BWZvjZzh OT9tyHBcXEdrXa9rxTuu jTmoBU4dNVZdyjwv KSAhcN9hUBCpfQJvqEje CE6vZVQtkolyr204AmRq HNC1ZLSszFTcJ6TjfF2e AeRoRNRiHEZiD4Qd eIEkXKpbZ653UWejTsQ7 EJHwipRoT4WaUFYjmQrf SfB4o0N5Oa5QQIytvZX+ FV38kj27E9WgWztd Iio0BXCbPTM1oHZ2cW1d DUUvZOcdo7E8kRA5I4Gj ogHqde9av0wwOFRaLTjn L63yrILij7B1VNKl fSO6ODJdkVukYfTmyT99 Oyc+TOZpdGgdb6ZaPhyk a8yqv3cozFu4UpNqJRLw khLhrWitWDQ0c0Wh Yh41K09uNTthJBFoHRDa HVLsZTCdyWsqmx4saN7h Ii8+ZWWweRH8dIA7mQ3z YbNmUwD3UIzkS183 ToDymEYlGdbfm5yub6dw eNm9SpRlSWViigZihLrf ALO2h6OlUg00T2MqkFxg l3SnFuq4xj64uZDr y1R5eIZ8I3KoUBVogptt eRZwnRouNL8rLLDmywhj NFPfnE1nVGJaK9o1IfBm XkN6VAvtE8BhdiG2 DYCvcYQnDDHncYTXuA2m hijmo6bfhtzuQqAbGENk JPr4JQe3RFCalOktHzBr OFW1IjN0PDL2xMSs eA1xmMbphohbvD4dUgj+ EBq4c3zhkUOmFE2awAL3 VK30QI91fQPmh4P5cHA6 L4IyORByrlxoyidz gJS9IPFeDPGocC34Is8n tDvhMs9fUXZoICG9QUFu iTPdY5UopA3uWnAtATDz FTMeM5CieXIqPKry M115PUzcFnS5YCVobmRg O7YxYHQoiYidVnT1j6A2 Ag7UPP12MJ47IO49zAZf p6N9eKG7F4QtRQCs imypnxcfeOQ8IJBtNRSp jM73Wz9hwEoaYf7nOLEa UMJ6VPEpuNHlR1TtoJ2z VhImSWKmSGXsM8Ow jQFkCZxpB752MHbzIbM4 HAJynqPbQ3QmQSKbsTmb RgE1y6O4Wx5MUl18VJ06 UB39qJBbd9J3hXD2 I8AqBWZekiqdfiwjnSX4 QCYySVRnnQ83Bo2avJxh Zs4oWGTjFSE2FPXpyCGa M1MgrH5kYcEbFOTv HPUtN4ObhRFgDGuaT012 EGnjXcF0FOCclgEtD9Dq CPNfkGltXvO2u3Q6Vw9L ZBbevzm7Z7EjHdhf dHI+ZG30CBLcHW12iTSu mOYui7apdVb4WmDhXRNk NDW1aIpvDNqpc5UzMPSb S80biGPav9M4WAXw bGx (more content not included)... [facility] Wound Care Noteon 08-12-2023 Wound Care Note [id number][facility] [id number][facility]30[facility] Coding Summary HTMLBase 64 GrlphjwpOBz3fKz+PGhl YWQ+JQ5KQAStB80hoWJj rA0xJ8CAHJyGZohiFFHA AUxZWaThdjUtFG1bmXWp ZXJu IC8+IT2hRDMcQqpjpFZt g2R5hBU9B51xqt8rPSft xBW5IGWjZzTutizsi6up eLi3LCevOurbDkKx GKEemC67PXF8hY67Pa51 qKHfpCVrg3znhNa6AxFk GGImYRG7jQmwRKack0Nb RCChH66ntGIxw6Z9 IGNvbGxhcHNlOyBlbXB0 vT8gPLkmzcuua9qlqafx Ana3oz71kROcy2D3jSL4 E5KxgyY3CFSssCJz FchvzUUHzO0euguwn0uz qvsvVfGdOKBfBYk8KDu5 BJFycJlvQaHqLT89MPK6 UCXcryPhB2EoMVXw gBfcFhU5y5F0Rt1FF5VZ JafsP0MQYBNZIAdkyRL+ BS58ld28G7RaZffiAwh5 LZUrNCD9wVH0zP7k PBZsRWppw2A6rTS4N2Xu kwPmxe3uq2gnYMJgPAto Y88scXGdb4Q4DRMdvNJ4 QOZdkAxvKuYmyZ98 Oyc+CDBnkIpjs5XaEdkc v2zyj6npdLr6IruiHMXh wiUkbOfrSNL6a0CpWl9j ZATooFI3mPI9rK4s WaWzMkA2LHqhR143MpNa gVJgQlmvK09nI1EkvFB+ HGCpMzo8QODnpInxXR3o O4BbKBQmegnptUXw nEkcJI5tJLZcjpyoKFUq oU8aIHRhQ8y9UnAyMiR3 AJogB2WgRHUoxgnkFp32 fN1dRaZeYgY0GVtv K8CndqG4JINbrPWdPPas QTX3T40ds3K7WXHtBJOi KRA4dFM2kW7ojCqnfpng bGVmdDsgdmVydGlj MRatAFgvX530LIMytLfk PkNvZGluZyBEYXRlOiAg MDMvMjYvMjAyNDwvdGQ+ YJEsMYQ0mWveBOQh bYVzBPuuLp4vaJbmtUuh AP8eBKIqpebzMOEayG5k FYOvwXPaiKtjHI2bOQRu lajmj932RdRkHVH7 XZAecVZfI1XfkB2iDqNc OHXaLQLeF0HkxRUfAZnp Q809ZZofVrH6NKCjvcEx O2XfNCIatTvpQeO7 k0C5Bp8Ai1ReuhgsI8Lk xNZvLhZuXgvfDGn3O7Ev PjwvdHI+NM73TGLdER26 XEp1UIW5sSzoPVve LUAhP6OcuE7zTnVcXZTh ZGRkOyc+PHRhYmxlIHdp ZHRoPScxMDAlJyBzdHls ZL4zSl3zQXSdTBAm vMoxnKObAtJtq4zuRBJz ILdhWU8qvFfhN4JvvVK8 MEBxs6p9Gc32D42mH7Am dXA+DJEsxMC1dTI8 wX0iZyMkCmB1GRysX618 ZuIszULbRnusf4buk9ls gZh0VoD9XEHxzsRsoJkr MQJ4g8ShCp96L64i IHdpZHRoPSIxNSUiIHZh rDizej1dqC2hBa1+PGNv lHK6sTH0aE9kQzQdIfQ0 HSvaO758KjIqyQLd Dvepx1nmg6zklZz1UgDr SHVzzsUdsEeqFDB0c4Ro Ge56R4VtmGhkv9NaGgu5 ld11rWCex9Z2lZO3 X0KmHNWlhplzpDPhyGlj WD4hNTLwaispXRUsgE8w ZVXoB9z7LdPoFsE8FSye B8BibrQ1QIDwkQTt VHEluCPMqU6cszfmb0tw dftfPvAvXSLgOHo9NZz1 IAPxyDbwMqOcLZW5TmD6 HLA9xHSpcX6fuRlw aaahwA4vJoi+LIK3lVXj lBJDPP3vHwaxqYP+PHRk OIN2rMtlWIqdIJHgjL4k QKOxW0u4IlEzTsO5 VDtaP8PvixA9ZKLuyAMf MBDaeSQHpT6ojdxgg7nv fxofHhVmMTSdFGu4XOe9 LWFsaWduOiBsZWZ0 FjB4KEP3wOBnsL8okDxc htzvtG1yZgp+QmlydGgg VRH7YXw0L3ZeDoe8HUGl mJxvEG6vfXWtOSdc Vn6fcTsmhKoyVO4rUDJb tfjoa035OkGac5izSGOa sYQwASbiNUJ9X04hd2V4 JITfGIApIIL9eHB7 oA0vhMirmffaiFGtzAur duIoyPyoXMbmXPbdO537 JQUvkHmaViOqSUc8D4In Vjf8YBRawKlgAZ6y bOBgGHgaRf0awHzrcRer OR2bGKUiiuulc627MbXp e6omAHDyqIEpOUntFPD6 Y29bd6O3NFMhCTMm JXI2qNL7gQ0kyMdasoek bGVmdDsgdmVydGljYWwt VXwfZ292VAPtuQeaTzJb dRx9G0WqTzq5NGCy gQmsNJ3gqAHwAYuxNb4d iTwihKbqYG8pSRUynuhn n303LzNgk3nfCTAxcYKa TUhoPOY0U29sd4U9 QQFhXPRqHTJ2nBL7qX0a bGlnbjogbGVmdDsgdmVy hDotOEleJDgrW769KESz cDsnPlBhdGllbnQg CFceRBy3T3AnRkoraZU+ IV37YDPsOR39uLToiTEl b4kuwJn1ZoNeIETwKIP8 fWwyJXepz6SyGLBu H77yuVDsz9Q9NJSsiCgs sMJxGlVvsZB3jC2dXTjb uuscr5bljrixEeqlq7wc fa41wO31O18kNKyo ZHRoPSIzMCUiIHZhbGln ws6ozA5uRu5+PGNvbCB3 wKZ0jM0aTKTyDtS3QLzw N936QpMjnMPvEyrk d0qva0fgsXt6EtY5IDGo pzZooXcvNPJ9c3ZcOc84 M16lAVysXULmWAOuFHGo WKUegUexro0tuU3l Ii8+SIDmuMH0lAI7hR6m OgOcZvN8MBxdI069SmNo gINcXopfM32zW8ZljYJ+ WBZwAsm2ICRzlNfw AK7dmASbYPhaKb0wKKN3 VqIvXwZlSGewE2SyGUMj rfpwtntgpCF9YXWtTTKo jP32Nl5ohVazBAJb vITMlY8mbolxk3hmyfkh XsBhOIHzWOp7NGp8BTDl jFgxBlDwCPS3YkQ3VYR7 lQFufR6ipRkftjig aC8kO8GxDWQebbcoYv31 yI8zEgGxRuI4FGhxNfe+ V5IUJtteUI8ZI6qUXZnt SzwvdGQ+PHRkIHN0 zJrjTPqzNUVagJ4lONIn F7o5TpDcHcY3TWluQ8Qa XBAeiknqFl68pC2fEbFq GlW1KJwkG7HgldE5 QVLmeMBnRMmcRLZ0Z69q t7J6WYNbQNKmMIG9pWO6 tL3qsVnzorsdpIQjxXfr dmVydGljYWwtYWxp L637EZHkyWzkHbLpVzS9 KyD4UpH1J1DqVro4SMHm cFxdDX9xiJCsNZwnAo8t qAofyHoyUL5lQRYz rsguYWPwtL2fDCRaxYXj nNwdGW0jCDSesobmz036 KqGdJAE5IAFofJJkQ2Gs hU3qQcSxLNQxIXYy Z5MpxOSnEAyaT531KJao VxG8BEMznqZnA8UaRWOo zCzaJxN2t8Q9Do28AEAG ZWFyczwvdGQ+PHRk PVI8wVyuIVxaMPLzeU9w ECTcR9b8FnBiRsS4MAxn Y6IgDXUmjqgcHy22mZ7k CgCqDoR4YFcbH3Xi suV3LXCveFVmZYvgPIG7 D84ss6N1NJOcCLLzETC0 nIN6uH2jhFjbpivlbTJb dDsgdmVydGljYWwt PBjnT173QFLsqChhMm4W JIS1H3VmLzp8OOZgqQrx WB4myUTtMPbvYu7gpOht mWqxZF1gPRJaleai GROssA4qESPdlYFwiFri SS4zOOGwkkise611DmWo ZXC8CIVdkIPjE0WlhM3i XeUyLXNfTSNmI8Tq fEBzTFwlV315WWrlMnA3 CTQxiyCjN6WtKIKsnCnr JwF4b4R5Lm3LGMtikYR+ SS22hs34O9AwIfeb Gty8BTHiJXN9hFF9yH7a FYNtLDlcc5G0hNH7I9Yb rtLpxn7el8geDVCxWNak M10hmSXfd3T1DXCj zID8XDYmoYuiEsBntJ49 Oyc+CSJhxGmfv0FeJvnu a1znj3axzZa1IxBuWFQq biEpvEffZSP6l9Ck Mp45W76hLHgaBRCsUUCi ZDIjQFYvoQjwkw0vrV4p Ii8+CFSxgTW2nHU9tR6j OkHtZcX5KGdjB809 LoXdvFMgYxrmr3jer4pa cOb8UlIlHFOtmgElgHlu FFQ4f7NmRu83R5CrhZuc l5HlCbc3vx86kSMk m8Z5qOE9R9RhRBGcthfd rVDjmTfxGR7vMRLwglxb RMUabY6fSFDiV7q2GzLd WqJ3LGeyF6CfzxR1 KIFghULhHILwdRHNzP1n kmgny6tktcioPjQlKZGw NIy3EVn5WENcrRlhJpWb WWN5MpJ7VAC9jLGc zZ3xaPfyeiaxsJ5wRpk+ LSz7s7iutEHjYX8olGY8 XQ32UB46lQSha6V8iUI5 Z9KiYWUqvmdnoiig hNE1UQJdCIQojK29Vj2v vAceYl8cSNQdZGZ7EPQy oLBlD7FbiX8rPpXvJARj FERrI3NpaDIjTUen N160JDslXzJ7CJNsjwOa T3VjGYLdqYimRtB3r6Y1 Uo5AHF15KM43VX29jWIa x5W1sOM1J6HaHTNm shurjcpncDN8DXSsFBCo sF06On5xxTheKz2sGQDu TOP7UZLuwPNkL9WviP1y FvJqFALeZARoX3Ym pHYjKBbxL886RZydZiI9 ULLrsoKtW0MrUYWahLvk TrR2k9B2We5EKv81FX07 YX69wJRky8O2hHO5 T5AwQJOuujnjatyxkCK3 NUCzAVBjyX79Im0ciHvl Ea1iGHSbXRR1JMFlvQMz V8IhfT3yRgMgPXSu KCLqF1YpwFTpCIjeN269 QKuvDgP5PHHyzzKkV5Dp NXQcmKjbNcX0n2U1Yj7Q MCtvnxw8G3ErZyws dHI+TA01AVGhKF24cSNu iUSos8gerQd3BgWfNKMw KLW6tIeuZWurp0WtMPTx U75jnEAtk8E3HRDh bGx (more content not included)... [facility] Coding Summary HTMLBase 64 ZnxxzpoyYJv7fWl+PGhl YWQ+HA5ZYZHeQ25aeVKz lP4qU4GTBKuNXwazAUHA WSbKWaNnwcDiWB2ffJZe ZXJu IC8+XL8uMVUpJhldcCWl j9X9wKM6M39xvl4uOGbd uJL1QLZiUwYzelppj9sh nDg6RCebFownBnMy WMPmbN24EIU5nM59Ca23 jCNbtHIal7sehOu0VySl JPJcETE3qQkzKNfxw4Fn KIZdZ20joRUaq4Z8 IGNvbGxhcHNlOyBlbXB0 lL3aLEowwsvcn5tqhplp Mni5uh59cCHlg0K3cAB4 T6HuqrN3RWDulYMu VsjtgXYAtQ0gxejvl5jr feqmRwKmMEYjDIj5PXm9 OASyxTkqPsSnWP88LXO9 BZGtudUxE7CxYXCr wQyoHlH7w3O4Nz7UG9CM SyieQ6AFDPNXIJwcxOD+ XF05cd58L9UwFykfUin0 EYCbAHE6qJC8lN1v XHKdGEqvp9N0vSE1S0Yz xxOllb4xk0nwLMReQZyh F58zbKUlt9U8GGTyuUN1 MPFhrCdzPpIvzJ07 Oyc+ASNriEqyn8IgWiid b0dpy9idzMr7RiivOPBs dgWldWgzBJP0y9SaXl8x ZDWtnLT2yRC3nN5r LwNgUlU1PBqxE741JgIf lKAjDtncY44uK6XtxVA+ BMTeHrs0YCZgaLrfOU3m U5XpCAIhyddpkWRp lCdiPD5gVAMmlwllPBTo zA8zLMGnO6w6YhOlHqY9 PDtoV6PsTTMatqsdHs15 vU2qDzLaHjP8POsb E1SjtwN0MILceGNiLRdx CLN4O67ph3J5UVAwFVCw HSJ0cJS2tL9nsNjwjsxk bGVmdDsgdmVydGlj ZVqaOTfuA288JCHkkLzh PkNvZGluZyBEYXRlOiAg MDMvMjYvMjAyNDwvdGQ+ GXVzZZR8zNqtHBQn xEYjWOdxEy8xdJclbAwb PP4yQUFmajomMDBpcW4m KICzqFGcaXvaVC5uJWXy gujfp447KrTnDOW0 KCXwcPLjN7LunC5sZoNy LPQvNXObL6XahIGeMVnm S237WHqfHrS4THYvqsOr T7DwRWAtmYrrQyZ7 f4P2Xw1Op7SjybwqK4Np jDEjZyYqSwdlPYx9R1Xs PjwvdHI+GA37PZDdVD43 YRv0DXG9xArzWNed BZNtU6FrhF1lQaHtQLBr ZGRkOyc+PHRhYmxlIHdp ZHRoPScxMDAlJyBzdHls ZZ6bYo5eJILdXGLn jPbiwUFfIbApc6ujOBAg KZzlUT1jzMqzV1KzaCF3 FYZwt0n8Sh66R87yT2Yj dXA+XBAhtOR3dWV7 oM6zHpXeHdV0HElbK754 DrSwfEPbVqjqv4ibn6wm lYc6PbP1XYRqqlAzzClk WCN7h6QiHf57Z42e IHdpZHRoPSIxNSUiIHZh aJtdal8enY7cCr9+PGNv sKX6pFG1iI4gHcWbFrQ1 DYzuQ419WnSldEBa Mehrv3cxb5gowHi5PqGt LPMxhbEugIvqUVL1h4Ob Hr08A0ZavYcxc1UkYyf5 ng68lHRur7F8gHN0 J7YmKBDiesspyGRmnDmm BN7jMLPnzmndLYScgP9n OQCtS2l1XjDmByM2JRjp J9ZmuvE3FPWgsUOn NUBczVGYlD3rpmges7bt uvyzKyYgEJMcLUr2SYi9 SIAbmWglHgRgTKM5DeL9 PTO5pKEcoJ5ygZec aaafkZ1jEpx+MNM5tAJf rCQSSX3cOuaumJD+PHRk UXJ5oOdmAByoNZXlwV8l UCBrA7k3EcZxZhB0 DNfqC9GriiD0MCXhwQNh RLEngSMPmT8eipbib8bj ahnyMmBxTVNoBIn7MRi7 LWFsaWduOiBsZWZ0 GyR7ABD4oKXwqP7woWcl qxehxN7aZfk+QmlydGgg GHG3EGs5V4MeUcr4QQZg fNxeVZ4hpMTyTNet Zj8lvBmcbKltBH3bZHOv ejimv285DgHdz7pgFUJc jPTkZGubQYK5D80lf4Y4 ICHvBAUzTRS0tHL3 zX5ivOfbolsnjZYluUrt xnRotXafMFfbYIkjO770 WJNzbHweXnSwKYf1H5Bb Zrd2SODhdZdkUZ0k kSNsPCvvMd7mzOuuqQka RV3yHPEvjkllv315IzIh q8cuCIOqbFKaPIhfTDX1 K65ts1O9YWNxEJBl RXL5vVH3vR5fjTjaujxe bGVmdDsgdmVydGljYWwt YVcoY115IGYwkIbsObTj bEm5F7EtUac2BYZy tUegNK5plHAmYYpxUt6i lCcqmXwzWV7wFVUlstgr n886SeBpy5ttGVEdgONc UBmwSTQ1V50hs1B5 DAXaUYZlBYN6aPF1yI6u bGlnbjogbGVmdDsgdmVy mPevGXkrUJssY691UJVn cDsnPlBhdGllbnQg JJhoNQd7B2SjIbgdpVS+ TM58RLGhZR70sLNroQGz h9mufQx3DlWvDFAxJZK0 uFynKBibx2GySJYr Z70quBZsu9K7RKKhgIbo mDPkOsGshRT0mE3hYErk eusdg3lyytanBcytr6ao et11uU65B35jJVtz ZHRoPSIzMCUiIHZhbGln xh0esG4xDf6+PGNvbCB3 sPH0xG0fHFHoDbS9VSjb A147HfPccBZiChyo n2lrx1mcmYd9UgK4NCJr qtVvpRigFXI5o4XzJk54 F03hCEaqTDPdHDFhYBRn NVPkhMzlqe1prF9z Ii8+NZTiwWJ5zIY0tJ6e UvFhAfI9HKhjY956IcYq xNSgKqdqB65eT3UmwHZ+ HJOuVys9SGXxhWlu RZ6eeNZoPGhuIu7lIAP4 LyZjQhKxLGhwG9TaWNXj jpknpebaoHO0DYMmXAVf rM73Gx3wyFtwZTMv pDWWbU2mzlnoh1gitonc YeNbPGMdOGp3KGt9LFWr sVegKgNrRQK2AbL3TRB1 rVOunB0zaZgbkpew qD2kE6OwORKcgzakFy54 vS9oNvXzVsY5RRbkJba+ P2YQSlwdBC8EQ9nFKEqn SzwvdGQ+PHRkIHN0 wClgHVvwZPSdeY4gLMIv A5g1HxYqTrD5DJlfQ7Yd SXCodttnAo61qV2nEuXa DgX7EElbS5MexaM2 VIQowVVeYMhoSGC0V52k a6M8VOIpGXKvLXP2tTI9 kH7kmUdtboxidGOouXro dmVydGljYWwtYWxp G420MSGkpJcuAvZoPvH5 CoC4HmR2N2XsVws4AMCt uOcbUU2amRTwRHxwPr9e uBmutFqkJR4zBKNc lpexUBJcaD7mYCUviSJz pAfdQQ4eTEAtoufod663 PqSaVDI3QHCsqRIjE2Gp oW4bKeVwQWLoOTHt G3WluDVsRBfcP887YRwj JpL5VMZtbyQlL7WdOMZs zVfmAyE2a5I1Wd51DOVV ZWFyczwvdGQ+PHRk HDJ9tXjwILzbCAJadD7z EPWnC2q2QeRhXhS5AQvx S0PqUCRavqzbBc38fN2v OwRrYlP4YMjqO9Aa peP8LDWnmJNbWNajMUG5 M42gd3C3YPKfWYKvJWB5 iET9eN1phNkjztmefWIo dDsgdmVydGljYWwt EIdmW907EZVjwCvgIk5F SHW1U6AeEiw6MGErjVqd LP5myQSsDOayPq5vzBzx nPhsUO7zKMGwgbzd MBMlmC0ePDVeuDYdmAwj NG9uTXHzpoajn438DvNu YFD6AYFzvHAkG0TlgE0n SkSvMULtPAFqG0Ry aABzDFpiE008ILchJlL3 NSTorlJmZ4ViXINpoEvi CbC9q9K3Cu1ATOpciKS+ YD58zs08O9QkOdyy Acl8YRLqOAS1mYG0wF1x OZUhCDyyw6J3zAS0V0Ut mdZkvl7zd5joUJOhRAhf S73ieZFih0M0VANp qHB0TUHqiZtuArZdpB45 Oyc+TSGsyXtpr4ZfXrdb w5ywn2brjWg8OyMdKGHl hpWjtIzeWWQ2k1Df Ih74P09qOMosLNXrTTZi OFUnZJRaaXwjyt7svL2q Ii8+SANlcAV2qQU7hS7y SiNeKiX6AUdkG865 LoWfxAZqGzuhg9ehe9op zNi8KvZvYPAvygFsdLnt EGL2c7AtDd51N2ZbeOhi d1XvTib5gt08hKBi w3Q7hNL4S0UtAEFbnrgh iBIktPcwYI2fYJMululg AGJmzF7gEMBlP2z0PpFm PkI3QFasZ2KcqlF7 QXPjfORnFDZlmBRLaZ7d bqxir3xmpqadDxTcPTBn RVg5ELt7RNKacLgeRpSy XAE1ZnC4YDM5gCNb dQ3gvFmxssnyfH2tFhd+ LKx3q2aogDVzWN6sdEI4 YT26RQ84lGSil5T2oQY0 E9SeUAAnksfhqgox aIO1CKDlYSOsqH65Dd3k lVqzHk4iXNRpFAE2FVZa bNZxT5ZduT2sKrTiEPQt OQWzA6VmgSNaDBot U032GLdoViQ6QONbcjGz J1OeYTEhrTjxBhV0r5V9 Mk1TDG46YS71VP41jSQv t8A1nIG0E0OzFAZf dqojpiyziNC5HQFrHUHy lA51Fs7rsHscQy7eXFHq BVE0RVXllGRfB7LqoW2k OoZzPFXoEMTyJ3Cc hGIiSMzvR585JXscScU5 ENCysyJyH0KnUNFspPxj SuS7i9M0Jg4PHb27UZ39 FL77sUYja4W9iDI0 T3MuGJPdlupweezzhYZ8 VYWrXAJnzE16Vz7nkDpd Gl1wUIXaCSD0FAFuyINe R5KhqL9lTxAbGBDl QBIeI6VxzABhCNbnY306 IMnjMnO6EPMwcoZsY2Lv OQCfkMdhFvT2p8M8Xq8R XRxvqqq8Q5GpBmwg dHI+LE23RBTgRV73pSWe aUWqh9obnVl1EgXiSADe ZDB2vFzgVTeok7WwSSOu Z91nwWJjw5T6PYVh bGx (more content not included)... [facility] Coding Summaryon 07-29-2023 Coding Summary HTMLBase 64 UnxvsjnqVLy6gEx+PGhl YWQ+LM7QQZFsA30afNXv hR3oB5SLLMoOXautSHPS HRjBEgDluaRmWT8mvUWe ZXJu IC8+HR5lXWLlEopwjIUx m1R3fYF6I15mng4iJPbo oAS9MLYnXzQomijfs0yn mJq2MGseKstkCtSi TIXggH90ODS0bH68Be00 fKOwxQYig6eccRj8JhQr YZYmOHX7sVvsECnib8Gl MOFtH35ftXKvd7V6 IGNvbGxhcHNlOyBlbXB0 cY9mKBwmqbghc7mjhsjf Ygg5jl06bQTqo1X0yAP5 X9SumpA2MBTwyLQa ErlaaTZVdE1ovgdqx8zn gwmuEtTlXPCeZQu3DFb7 WFRnzYqqSySdXH98JEP4 LVXcgvCiT8EmWBIy eLyeDnV8i0Q3Ic6BD2AW VtnjK8GRUGGMPBnemCF+ BB88yx64U9VwKvzcHqr5 SBJhQEZ6wWL7lQ6b HJWvONlug1C0oIK0K1Dn afGaah0hu4ttKGTtHMjs L13uyGCzl7K5EAUelWA1 QEOdqQukVeTlcM11 Oyc+YXDheCezt5UtZwyy k9mjv7ntoCf6QnecXCTi jqMmrYshBUF0d7TeVf9m SNKfeVT7aAJ1eI6a PoRtSnW1GBppP747NwMe yNKdEbewU63sF8QmvTT+ STKpMzx9PZHflNjwCX7c M1DlHAMbxscjrOTc qLpyQL0vPGVulxkuJHWs uG7yEHSwX6h3DbRpUdA7 GFluR9JjSSVvwusaYu66 gZ1eNmPpAyG8XIhg F5GpycR4HWDteENsHDlb WCI6Y33zw4N4IKHfWAUn QWX7vBA1wD4jiWfiuerk bGVmdDsgdmVydGlj JFgsXPnkR257LTQtbFpz PkNvZGluZyBEYXRlOiAg MDMvMjUvMjAyNDwvdGQ+ OGEfXVR3jGjkDTDe lROzQEqeAs1psOylgEdo KC7sPGGumnydYUWcyA0v QJHscYZjnLwmFU6wOMCe tuliu643TlShTSV6 JNCedBXlQ3SalQ5nKfBi VGRxIBZvQ7RlsDBmPHux V864JHzkToO7DJQndgAk C1HoVTBjfBpsKsE7 l8X9Mx6Ss9LcolebM0Yc tUIcXaUhPlwxJCi7G7Ha PjwvdHI+NN34LFIhZQ26 QYc0WPO7mLnlELbp FDVaW7CfsH0iUzXpNIId ZGRkOyc+PHRhYmxlIHdp ZHRoPScxMDAlJyBzdHls QQ9fGq6gMWLyQUUf oBpbnNNuRtPhn3yjKQMu QNtpXX2wkNeqM7UbjRS2 LPVxv5t9No07I99jB9Vi dXA+BMTmbKM7uOU6 aX7iUfIrNbK4MUhxE314 MyHlwAYvWgsrp3xlu7dg kOy7OvS4PVThjzGclAgg EHS5v9PpHl22S41m IHdpZHRoPSIxNSUiIHZh cDlgmx7spF1bVj7+PGNv rTS5xEU2kM2kPlGbPaX3 JCsgD353RyPtqMBi Mwwno6fws3ngvIc8EgEn LHJweeOiwCbzFWE8q9Or Xe03R0YjvZrxb8CrNcj4 pl06rPXdz6S3rTU3 K9BfAELppyeipNGjzDmw SZ1hZUMeddbfWJHciV8e LTBoW4s4GyOlObN4PAlg J4IrqyM5CKEfbVDn JATrjZJBgC9aezkkm9dm djtoGvTiHZJjRPn9YRl1 ZJXcxCiuLoMpRZB5DeE4 CSO0oESbhJ6faNnc odfeaK1zCul+JRG5gGPb uTEHYI3mOblsmEB+PHRk CJT6sKasDLcqJSBdgA2h OWCqY9i6EhXyFhH0 WIixY5KwkvR9DTYsjVZf CZLgfZLKbW2qihkdn1in etjvDmTbWCTeXTf0OMu4 LWFsaWduOiBsZWZ0 PnW8PGS6sSComB4nnNkk kzjoiT0vFaz+QmlydGgg VPR8KHn5B4LkGbr9BNHo kDsrBY4wdOYtMDgu Mn5gvZwoyTigOP8jOBKu rzwht022QuJio0hoRIPc aXFaWOvwKCY5L38dg3Z5 HFDmIOZiCGH2zUR8 iK9mqNknijakmIQwyWxn icZhyWaoDOqwDKdaJ129 SBYfnNlaGeTjFZd3E8Qp Gtv1UXNraOkxVI1d iOFdAUwhEc7njSdwpLje VZ2qWGKflqfca176PwPu k2awXHFhlIIbKDurQMB4 P41rc5I6CDAhHCDm QNR4qCI2dG6nzEhdnxrx bGVmdDsgdmVydGljYWwt SIdkE310VVQslNnnBlZc eCm0F0YiDce1PYJw kYbbSB7bcDZzCPzrMs5k oLhgmExuOS2cGRFdfbpo f536CuFnr8uzNCKhjJWy TFasZAW8U17vv8D6 FTPpFTSlHBL6jPV2qT9a bGlnbjogbGVmdDsgdmVy iBciWHltCDrbR062CKZf cDsnPlBhdGllbnQg TPkvALi9L7ChIchbiBH+ KT94DMTlML99dSWqpQZo l1ctcTz6PaPdSMZmKVK1 lGxmHNvrp3RhZPEx Y45tvWOga9M7DNDomNdj wYSoTfCpdXM1bE7aGEfk byeln6oqeewnYmdej8ir ui84iM79F45vAXqh ZHRoPSIzMCUiIHZhbGln mi9uiI0pMy5+PGNvbCB3 yNY8dP9qMEHjNxF3FEwm K768AwOmwKXbOwvn a3zbu3lopRb0YvE7JNTf daQczHdgKMO9g3EwWb30 Q71bXVwjDVReCFZbZQNe FYSvrShtxc5axL8m Ii8+PDJhyXN0jKT6yR7f VdEcPyT3VGnqM512HeEs kZSrGusqJ88hA2RxhUC+ PGVdZnq6TCNcfIxn SV6caIUaGZgnVs5lNXS8 TiBzLcWpPGtyR3DtXSYc xdaqxpfkiWC9WRIvUWXb mA57Kg1vfXyrBDSy wAAYyM3pbkeuv8emtgof CeZxYBQaVHx8BGj6BWXd oVzgTyFqXXL1LeJ9LYF8 uXHqtC4kkWdikice iQ2mA1HvZHQusbfmTr22 kW8mJoHcYsA3PYixBpa+ R0DAEgbjRI5TF3jJDFvz SzwvdGQ+PHRkIHN0 jDaiHEapPRPofH3pMQNr J9r0UxVaZvX8PFtzA7Cu YQOhvbikYn18vP8tLuNu QtN2EBfiU8PxleP4 FBGbrWDlLPjuDTV5U31o h0J5UMBoYQBrFRU4yTR6 cH7moIpffysaqPXvzEdb dmVydGljYWwtYWxp I641XBSlsMmiXfNcMnU3 KqC7IdL4I4FoHhu0NCKg eDpwUT4waWDwXOjxWq3m hPhxjPasQN7lIRDn eymjTAMchR0kTLFrlZVh tYmaIO0kEGXutlwlm372 VzWeWNY6RQEzaSUeZ0Vu fO0oAfBlIAXlFTJh S8NbvWXnJRjlD827CKqj PxR0CSQrxhGzN5MqCCEt kQprWmR9z6S8Ju10LUXH ZWFyczwvdGQ+PHRk YVR6rKqfXJqoRYPvtM5w LJZlA7y0PxJoTwA8NByq Q4KiCIOwrhcbNs23bK8s GdSkNmS1ZRcaG1Zu ndB3GPJxrETnMZtzEUX1 P78pj8G0TXKnJROtHFP7 uES9xQ7slRuhheiesOMz dDsgdmVydGljYWwt DXefX180CZLnxEzpNn4Q LBB1G1NeSpo2FPBusBsz YE0caJVfVNyyCo6zdWfq iWibNP9uBKYqdypd JKLyuO7eSPIyuUHghQor VS1gTDTznzprq877VvQo MLQ8JXJftCFfV8WcfP8q CyTsOOVzBTZkF5Yb gSAzYEorZ091LKqeZeW8 VQVarsFlL6EbOAEkxIvz NwL3o5B9Qf4NIRqlaTC+ DQ00op29B4SmNubw Rqs1IMPoOWB4fAS4qP1t FYOfPFvzy2Z7dVT5F0Vg bnQuhc6nv2feRQHzFJta V16oyQDjg1K4BHPe xET4UFWiwUerQhSlmD41 Oyc+VXKmdNhhq9CvDdik r4ink9fytFx9MuXzDUJe wgFppIjgUPU4l4Tl Ni04D67mOTafDMWfFAId SOLyFSRmkVrhbv5tiH1j Ii8+UPOrkJK6kVV8dX4k WjTeIwP1FFgwZ906 FdPgdBFhZnkfb0vrh2hj qYs8YmQtGIMoheImwKxk JHF9a8VzDy33O7ChfDjm s1TaWyl5xu42sYTz i8G1vNC5H7FdFOKoeynp nQCtdGveDQ0bKPMmaxcf CEYvdK1sGZSyG1q5SrLt BcY1EEreJ5FuujQ6 FEAqwDUhSQAmxYHNoZ9o nhdyl6jrfsjeBmGaQLGb TVv5FRo1KNMktCoqCsIa PHJ6QiK4RBS5uPEc oJ6zlHywleowgB9dGrr+ HZt1v4vdkJZhAI0tkRF1 XG04QG13iCLak6Z8oWT8 L6DnGPRssadelnyu dSV0HFUwMUZqgR74Eh9w cFyhBa7aXOPeTCC4QDEs gAOxY9SqiA4rPfQqZPPs AAJmQ0EeaXRuGYrg G344CTspKoU8SKHgsaVx D4SjJNXtlRohPaA2n9P2 Tw4NMX92NU46RN83hPWp b4P7fCS8V4ZgUPLy mgjwcfqhuXG6DMVbGLMj aM05Mj0gcTwtBc9iDSJc CID1SAAovTRmD7IjcH5h WtExMAZrPJDbH0Yo iKWcUNijC707KZveGkX9 OOTcqgBaW3NqQVAqyEsn HoM8e9C8Xg4MCx48ML83 SO11oNCit5L4uPY5 J2RsODXjkaicgzprqBF0 SDJqBHSokY79Ey0ukOdx Xp1nQQVoIYT8LMMmqLNe P7KgpY7tJgFmAPAb QNKjA8KalTRsXNomB895 DEndHsH1HOAksdRiI7Ls AUMvuOglSbE2h5L7Qk2U EFyqxdn3J2EhZigi dHI+LQ09DBZrJD29uYNg ePRhc3hhmWk4QsNfANCi JOL3lAkzIXtag4WePZEy I10pvZWub5Y3QVJk bGx (more content not included)... [facility] Coding Summary HTMLBase 64 XgcahokvMYu1dBz+PGhl YWQ+XC9WYWOqU09odALu dU1yR7DMGTqKJzwyDINQ OZtZDaEehcKdAE3hnYXf ZXJu IC8+GM3mRGJmMmhyzVIo j7L1zWL2K92soc4bRSlz mYK1IJXsCkGhazibg9th wQt7OCrtXyyoMhMx QMCkpR00JCK0kO30En05 aOZzxYLoy9qalMv4HdBk WTNpAGX9oGfcXNepm3Mo LTDdK48jkQItp1Q8 IGNvbGxhcHNlOyBlbXB0 vJ9bRSnhfaarh4ganlfe Tqo6vi33tLVif2C1wPK8 B4XqxfZ7BHInaMBp AeokjGOViD0uxmngy8ax tcssZmStLZSqSRx8SIz2 YXMiqCmoAhWdQP21GQP9 IMTlaiQkI4YeVHJq iCukCcC8y8D0Vb1AC3KA LyemZ1BDGOEULHvkfZG+ XS31ze84Z8RdBtrjKxw8 CHElSAM4iYW4wY9m QQNnOEavb5B2xBJ7P1Xg okPfer1uc7fpHINcEPnt L00pfSDet3H1AYNvlVI1 UHEenTgiSsMedB01 Oyc+QRAhpUqpx0PlCnkf b0olg8awjHh3OrnpHUSl utWcgMujTGV0e2LuZz9t OUCkxPD5gDS9vB6i TwWbMfT9TLpjG379QsPm qCMkPdpcS68jG3RyqDE+ ONUxHdz9CYWahAjrIB7y R2KtHGYiskxlfTOg kEicCA4oNCJigygwZVPv lL5kMGHbP6m1MwRgFaX3 URtdV5OlYVPpubcnMj71 nR1hEmUhJuN6SXjd C4CcbfK9MBAirDYnUKrk UWO5T01yf1K5FWQlDFVl ASQ7bXF4oH0kiSkfvfty bGVmdDsgdmVydGlj XFpoKQwbP763MSLvsDwh PkNvZGluZyBEYXRlOiAg MDMvMjUvMjAyNDwvdGQ+ MQMxCPB3zUopDJAe eRErFFcjZj4qtVbezTjr JM5pMVNbehpwBKUgnK7m WWJzhLJawPdpSW3tKKHm jslyi995JaNzMGE6 LTPdbZQoV8AbnO2qRtHg TEZmRLBxU0SvfIZnVLqv X705SFbvPhL5VSRnzwMs R4VzTUMxsTbvVtQ8 c8Y3Rs5Dl5MiaahoC3Xi iPZxClLbXuytMYu9A4Ib PjwvdHI+AH52JPVwYX76 PGv4NAQ3mHabIJdi XRYjP9GcoF2tVbGyJFEy ZGRkOyc+PHRhYmxlIHdp ZHRoPScxMDAlJyBzdHls ND4iHt4wVOJfLAWr zGaajXLwIySxi8rxWLYx UHnzAF4fmRccK2NmlHR7 REKcu6i5Gd66W34rG6Lb dXA+FTGfaBZ2nGF3 kT9yDhBsPkC1QNzxQ250 GqHxzYNjMlcct0jui8tw cJm1SvJ2NYWvlzYrfDxq PPE1m0YwDm15J60r IHdpZHRoPSIxNSUiIHZh gNcsrw1vjD6iJh9+PGNv cLE9qHP6pP2tKjYkVqO2 DVdiV812CeAvcGUp Psrnx8dic3lteYc3GcQc XZJajdOqkTxoHWS7y1Ar Nv27Q5XnkUied7AiFrq7 gy40wPPgi4K7cBK0 I9IgVUBzomhsvDEunKso SS7cOFCwkmsdDIPfwP6k YCYcE2t6DqPoEeW7LWmk C9ZerxR7OUFkaZHj UZAdxIVXrA5wxkzcm9ta wipjQkKrVSFfDPt1SOz0 GPSlaOpfLeDkPSO1WoZ2 JVN9tXEahO1auSsa xdesaD8kClf+SQQ3jPOa rQXMOY3rGnqkgLR+PHRk ZWP3qCilUCckVQMpoM1o NTHfF7i1WxTnWlK3 WRmzN3TbzgH1QYJldAFm DWQqfISPyP0adcvwe5pl ugoeGlUeUJOgZNq5GIg6 LWFsaWduOiBsZWZ0 LjN0MUH7nEZdvW1riWgd gwgesD8iWlc+QmlydGgg PUE4OJg6R1SoDig4HUMx aMvyZQ8ytMIpGLpc Lw9rjYzivDwcZW1bLLHr ieoat407FxKrm5orDXVy gEIzXBaiLAO0F36zk0T7 MQIqNIDmLBY9cTY9 bR4jwPticfpvnZAqsJqu spFiiReoRIjvXGkgH089 XETyfImbXhRoRMa3T4Yv Dkb8JZVtnWkrWN4k fEOsCRjjEl3cqSyxqUik UN3sLTHymrgqe635SgOc t6lcNDDjgZKqXCspDMP6 B20av8H9UZThGCCs MBO4eUP0yU1ajZvutnsq bGVmdDsgdmVydGljYWwt HSryE793VHSspEwdMxSy cHb1S6RzJww3XWDw jYhsUU0waWEpJRtuWr1z gVrktQwbLQ5uFMQjheig x451SjApx0qrOUDuvPIi PLxjAFL0V50zb5C1 MDJdRTWpRML4zOL9dL1j bGlnbjogbGVmdDsgdmVy mUpbBFywNYyiE341IUEo cDsnPlBhdGllbnQg CNoiZRo9R9HaLowxqNM+ CC82HWIvGU55mQQwnARt i0sxpHk3PhUvWKJgGCO7 iOogOFbbu7WcCNOp O56pyINcx5D7LVDtiIyp hMAlYfGpfTO7tH5sXLhw wutkd6cthggtFwthd8ll fv79fY53S33kYNvs ZHRoPSIzMCUiIHZhbGln wx1qwV5lHu4+PGNvbCB3 iUD5jY7uQUZnGcT2KMhf A274UgTfoEPdDbld o7pwm8cerJb1LdQ2LJXu xtCepNemVRN7n3CgUo68 A99dRKlwZLYgEUXlVEYi RDKcnCiwyj4ipU8v Ii8+KVFxtRI5rXF3lW7w PtNmXgR9EDlaF846PhSb zLWbHhzcK96mZ9HxeMO+ XPPqEet6BTCnvUyp AJ3pvGRhIZroTx8qJSH5 AdRiZpPyYCigX2UkRPXe azxcgkbpxTU9AGAyHIAw aV73Fh4feAcsFUOp lQBQwM2jwqwik6iacmgl InUgMZHeJTq0JVl1DDDq fTbhCrKfHRT0PjF4QNE0 cMZtuD7dsGosuczd iI1xD1RhPFZupevxMu65 eY5fGyJbLjE0HBgjHxr+ X9MBClbfCW1YU0dTPQej SzwvdGQ+PHRkIHN0 mDkbXTzsNLVtbQ6wWHQp Q0r1LdOnRcX4PMwhQ0Vz FDRbchzoTi46oL6zUtTy ZaY8ITjzT3HlgzB1 FUSouTQrBPdyYEZ1O62h e2U8ITRtWOQjKUV3qLH6 aD4xhInjrchifMAueSlt dmVydGljYWwtYWxp S777ICXwuVlxKrPzKsZ4 VuA4PfK8I9ByUxp2QOCf yExuXI0jfFJoILsuCb2w oGommNilZP5kMSDn bajjAPLheW5cVKQhtOIt bHusHR1qYGXainfnj390 XpQkEPG7WYShpYWfX9Rv fV5cPwWcWQBhYBUt D1DcaWGgXPnoC474LGmq FbJ6OOYgzvUoF4AhHRKf aQlzZtE9r2B2Fy37QOUV ZWFyczwvdGQ+PHRk XMY4uEhbASpbSAIqlH4l LLMxA3t8JqLpFzS1ATkz J1YuXSHloglbDy37jD5h VzLwNqV8CPtrC2Oz ptV6JQNhqVAiUZbeOPK8 M62qk4K4DBBeTSGmPRQ7 tLA8gL7kaYwsisgocZYc dDsgdmVydGljYWwt AUhxQ418OZXpwJnhZi6U RGY5G1UvXql8EYFsoKuv IQ1xcBLbVRllPx1sbHqy xKckON6mJIGpxtpi CANcjH2tMOMmxSOnmPts YY2zJDBgpspjj395JqCn RLD6HNMdeANiL3SluP8m KgQaLKIeABQcV5Bg rTGcGKxwM245ZMhqIrH6 RETuhaMsI7IwMRGnySgv EyQ6u5P1Vt2BVStbqCC+ PO42qi06Z4KyUlvv Kjz5HATuBMB6rGF4zS6l UYVmSXnht6Q8oSS1K3Tk vqQgst2em9fhIIFeCVby R10ogCAhk4B7CNDv iZF4XADcaRrbQrKykB20 Oyc+WOVmeOpzj9ArNplr m7gwa5orpYk6XxOoGULe diUjwRfvGEX4i7Bi Mi07P19bPCcgLBZzGMLm SRAfLRMbmJnwjq0dnB0a Ii8+NVXlyFG6qWJ3lG2s WmHiMpL0QKioU759 FxNxlDUrKujjh4nng7uo lIz9MuVvSMKxgeGwjBqx DSK2w1YmQg41V8UzkYfv y7AsNlv8jm07nXAq v3X0pYX4Z0XhHRZxsshu hSVyqVoeFZ4hEVQqowsw RJWotQ2lRNDrV8h5OaFm BhG4VFesG9GvjaT7 MYTzvBVpWEPjfSFAjG8y zqpbf4tmicmrJrHnQBIw ERb4CKk8UHIojMqkZnZk QZX8HhI8INV1wIVi fA8yqMfvptnecB3jQmi+ XMm5w7orrKKmIJ5xgEH3 CL68HX38tOLvv4X5pMC5 O2GbDECqzurwmdld dLB3SMOxTWEhvF30Jv2e bLuqRt0hBQWcDFJ7UAPn pDFiK3QneK5qBxQdSZRv FIUwI3CvnSNqDIgy K445SUbwIdM9TEXqesOj M3GqGFExqQrxBpY8x9X6 Al3KHP12RZ00VG62wCGs p8E7rKC6G6JiKQBk fzzbcqtpyJZ0HYObXPRx dJ84Ms2vbSbaNa7gXCUu AAR1HCAkmDSxX8YrhS9m FzIyBIEwJWEcR6Rn yUIdASkyK148CJnkBuJ5 QSOxckEkE6SpSFWyoVfb LlN6i5J0Ti4PYl28DR93 CJ07zLWgk4B9qEF0 V5QfJIIcplacxozdvTJ6 JTOzTMXwtD75Ju5lrFnk Vb3mFNPqPQA2HRLofGUd L6WcfB1tNaBfHBFv DZGeN6ZicKGpZAvgQ062 LLtyCsQ4LMVmxsHgM5Ng NCLssGzjFlW0y7B7Tf9L KJoyumn8D5RfCjsb dHI+EW62NZAcDA35iVCd lKBrw6eugAr1YvGgFTGa HAW4bVflETnuf0CaFLFq L38csEYko0J5EYBa bGx (more content not included)... [facility] Wound Care Noteon 07-29-2023 Wound Care Note [id number]#1. 00OTGTIFF [facility] Coding Summaryon 07-24-2023 Coding Summary HTMLBase 64 SunmoyklETh2wLm+PGhl YWQ+OG1LNZDtJ26irGTh sM7bY7HDNOfLCwkmQYIJ HZfDTeZdfxDhGK3usTAz ZXJu IC8+CF0bRHIaDuuqqREu k9X3aHG7I89oov6wNKrm zPQ0ENFaQrXoshjzy1up kAb6PKmiHumhEvIg CRPjfR25GQH4gR95Yl33 nLUlyXHww9azeBd2NhQc TJQdEXY1lZlhSMmmv7Gi KBQoD68rfPEsq4B1 IGNvbGxhcHNlOyBlbXB0 dC3bMVmrdjcwa5mqvlyt Nkw4ax91rZAtx2E7gHM2 A0KuuvB6JXLtsNAr FkowlSUDuH0jjkoxp8mb nngmZdKuKPYwAHl9KTr0 THIgmHcvYyVzZK15BSB1 FRTzinQaP9VhGDFi oDgnXsS4d4V3Nt5PK5NG AtejX0ZYGWCCGFqphHS+ YT03xb46B1TaLfaqWdg8 NALwXBW7hJS7wV2l NCUdZDkec6E7wWH3C5Kd ayMhor0gt4drBEHvYCkl W81bmMDfj7M7IXJfnYB2 DUQscIjsUfTzmU79 Oyc+JEUloRvul4BqDvvx w4pww7xwlBp5XbgsLQVb dbZhgZcoVXP6o3MuEx2t IKUqzSX5cVM2mF6b UfBvOdI4ZZrgV174XvBg mVOiVkekA39vV9RqkEM+ PVLyGwf1WOOvsGllBQ5i Z4MfXUQeokppzDOp uNzvWP6gWZLtatitEVNf eE1lUMSvN9n0RzLmZxU1 MUrgD8YvATYxvlnxYh35 wM3aBnVvAaG7TFkn K2SfcpT7UTXvhORwBKnj IAN3E27kw4Z0WFIrEMOt GZQ6uEK2cO3cfRhzzlpb bGVmdDsgdmVydGlj QWdtJRmdB319DZUicGyo PkNvZGluZyBEYXRlOiAg MDMvMjAvMjAyNDwvdGQ+ WSAxPYD3xVfsMKHb vWVeRLpeVa4yzIzqoYmm MC7sKEVzyypmYFMvuY6t MHBjjYSjvJdzGA4iODPw twsgg047ZnOrIUL2 LFAycDHfW6HamB2jOjIx NCUmGZCtI2OhcKSaXMqm O045QXvnKiR2GHHndgNx S0MjVFLbfXriWuS5 j5I2Gf2La4LlhomvE6Xo sZWfDjPsKskuXBj0M5Za PjwvdHI+WJ39CGJoUO61 OEc0SNR3kUgeFJmi SZWgZ0QqpD7fHnJbVMLm ZGRkOyc+PHRhYmxlIHdp ZHRoPScxMDAlJyBzdHls FL3gMm7uKTPpVZBz oUfkiJHaUyLwz7utPSAs HErhXS0tuLxrS5XdgUA5 ELYmu0l3Dr13Y49kV2Sn dXA+LZEjjLN1zKT8 wN5aCgKfEvP2BBfpD065 VtVecEQrDapyg0who1kt lMe5ZmP8LVHcbsCueTjt PZR8n6EpUf18G70w IHdpZHRoPSIxNSUiIHZh fYcmvt2eeP1xBd8+PGNv qVW1mXV9fU0yEaTqDeR1 ESdgE680EkDidASz Ncujl5pgf9kxfIq9GoLs ZNHmcaYngEatFRJ4v6Ae Fe97I7ZatZlmg7FfUjo0 ax04yYRhk8K6zXX6 L0XaWIGfshhvfIGooXzl ZK5xHMHgdhjdFLBdlQ1j EKKyB8e1FjVqNqM3TFdw H9LnsoO8DGZofTIi NPKvnYMOfP8lliecv3rm ckkjPhWbYUSjOEc3CWk6 TMHgwAwgXaVeSLJ3ThG9 LXD7gNUhlD4mbNjr dvlzkV1jCap+NDX4lCYa cLUDNZ8iVoqayZX+PHRk GSD1oHqyYNgiRFYfbV0y GCLqV3s9SoZzXzQ5 WTvaG2EilgA6KKGffELa NRZypLXIvQ6jeyqbf0ss koozDeSiGPOrJHh9MHx1 LWFsaWduOiBsZWZ0 EzS4GHE1dBOmsK8niYuw wopomQ2eXmb+QmlydGgg SWU6WNk1W2UoHtg6MSXc hFozEE0cgKGzDHwq Xu0inLhzcMzaII7yYBTj ueoms860VqXdy8gcYKNh sLGtRUmkUDC5V50ig4Q2 PEVeUNLaTQP5dPH0 nL0jqPtwvtkjmRRfhQql ozTbsCcjWQeuOYtdJ820 VHFtoVacYfPiZYe8Y7Ry Yvi0ZFZfmVabOS3y mVYjKHdlHs9ugLgknCpl NA9yVJWaihqac737MyQm m3atTRQqwJLyWNynWEK3 X13jv5U4ZKQfHRZp JXQ0qPA7jS7beCnmtqga bGVmdDsgdmVydGljYWwt VQhmN710LKSzpFogVmYm qAc6Q5PdHuj1XZUy cSdbKR1zmBKoBTqpVi4f hRedxMtqJD0rKRPmiobx i334IhPlq8ueFXTukVIm EGooMEG1J05fk2S8 SBYaCKWySCJ9zZV5yH2f bGlnbjogbGVmdDsgdmVy hCqnROkrXCyxR042MYIb cDsnPlBhdGllbnQg JRfwLUi8P4UhYmnjsJW+ DC00MYObPM86gAOlkNIv h7nbyTq2NjXhCRLbLZX8 dQnxFQhno2QsUUXr W65zcGRob0Q6SITqcCso dBCeSgCtfTV0hP5cGKto efjqm3adehhqKefga8zw wu53xB19H62jYRdg ZHRoPSIzMCUiIHZhbGln tp3jfU9rCw2+PGNvbCB3 xCH9uS9lQYUdCbO5EAdk N799YiPxzITxYwup m6pmf9veeAr1LxB7WJFi jrYmdIddQAX4j4FyLa99 F84lSWjlZELdKHPoOGIm FAJyeXkllq1vtR2n Ii8+VMHmvSJ2pTY9hS1l UoCiOuH7KWrvZ394XgTj jMTgImsiU25mT2MxmJS+ UJMrChg7SPAkeXmj UZ1tmQGiCVgxXw7eLLA9 HcZeIzFtXLzpR6WdRQDk vmozeddhePV0LIDrXVSj xQ51Xl4eaJguFFQk oZAXtG3uksezt6lvxkra RfUcFTHcQXp4XJb6OLHh iVxnQoPgOWA0VvR4XUO1 mXIqqC7vhEfuvoew qJ3lX8DnDBRfbshvNm45 xS7iGvJzDhD8ULagJkn+ H7WIJlpcRC8CL0aQWDro SzwvdGQ+PHRkIHN0 xEtsIQcuCPWmdF6gAXXw T5h1NoJyDqI6QKidI1Gr YBHbvtywZc47qG7kAaXa NdB8PFflI6XrzzA7 LOPisFWrICejJWT5P44c t1K0VAFgGAVzZIL9qST1 eZ1htWyzhbiokHFnaEvg dmVydGljYWwtYWxp L326NAOgbAjvWoBeXvT8 JcI9SoI8H2IkJuj2OLOa iBapFG7npTHrVRyxYq8l lRzquAtdZN4fNORh pdjsVNImmN2cBYDksHBv iDdaDV6iOFCmijivc134 KkWdFCF6GASngYEvJ8Yj pT8lJwVoMAJvAUWx N2XhwCEkUXsnR377PUna GeX6DVQbqwEtD7RcMJBy rVaxPyX9l2W4Bg99XYWD ZWFyczwvdGQ+PHRk WCP9pKipZOclRNMvcN2o XIItQ4l4NuAzTkH8CDbl S2AyPSEjevalNq09oF6i MkMtVqU7PLovJ1Do xkP5GAXueGFjQCbaVEG1 Q44xn9G0VCAqTDCxRQH2 sSD7fV9pbPlorwuaxQQu dDsgdmVydGljYWwt YRuhB031VUQnsSleWb9P TDC3B5DaBrr8VPSvzKmi BO8khPGgPLlsLd7mzByr hWsgQO2kNJCnkoks YKBcpY4hLTMiuLZmnOkd KW0bOJArqcagv269TsRi RYF5AOWwqQFhJ4FzbY1l AyXrGOSmYSKvS6Do pWNnRXpbK745SLxpXsD7 RENngzOiK8VlMJArfUsx FtY0j7V8Pk6NIMnpxNN+ FJ56bw28T7RlSwpf Mpi7VPUyXKX3vEG4oE8f EINtZUfrt1R4uFL4Y4Gw enTzaz0tv9gxWGOyHGoh H46oaLTon3Q0BCGs iAV4BAJdsZmtZkFcrL57 Oyc+EMZovXnyk4XmQhrd v0kxm2gerFz2ZaFlMZMt ycEqjRhwKGE6k0Wz Ub05H22hECswWOScJPXs BDNwFPWaqWsbwj1acY4k Ii8+LVMaxDC5zGT4hC8h OcIdTeO9PWylV859 PnRvnJPgAzgzu0vpd9wf eRp6KjByWWGrznCxbZjc MBJ6d7EuMb82H2TboKfw y4DbZrh8xt42aYOh w9Y4dBI2W6OlXZCksiyo fTWuuFwsZW3hIEYnpjym QRXplC1vOUMlK8c5RmOj CnH5WLdjW7SfrkK8 DTVqdFTtRVHvgUGZcE1j euhog6lwsarxEjUqRVZn VAd6MBa0DSNqzCbqUjXz RZA9WcN0LZY2hEAf oK5amWownjdzgP7oWbj+ TZr3j3mkwBFuBI3kfZE8 FB96GI90bIZeo1W6fKC6 D8FsBRLkopqfwujr bEK6PAYqSYLuqE55Yh6h dUswTl8lQVEcCGM7QCMm aUSxX6IozR8uXlWxLQMf ZYGqJ8EqtYTbTGtv L919KNfjCgI1SDSiroNl L4ZbNSGhgCtfPfZ2o3D6 Va7UPD52GF66EW96lRCe e3Q9fKZ4E7FtNKOn gklngpgbjXR0OGMzNKJz xT95Ea3kjIphIv5oZEZf WEY5IVTlgERwA4ErfM6o OnXhNZWuHWZnM3Bk iTXjJGdkE432RUkxItG6 MYHymmJxM9DfWOTwoShk HiC5v1G9Cu1UJx53VD89 PN49jHSvs2B1wVB7 P5QkXABpgpzpxghixAV7 FOBcXVBzpP21Oc0hzYsz Rd3lIUFjIOG6TZTngMZx L1JkpW2rMkYgZOIs NKJaJ7QmpPAtZSiqZ634 NRcnSxC6CRUsmrNxJ1Xy OHVlwLztNjY5o1P3Hj4M RVtcmlq1Q2PdKlbi dHI+AN89JRRhLS03jVJj xTWry7znuXn5DvVhDFEf SVV1yGrfYUcit5AfGJQt U00oxPSce5Z0QONc bGx (more content not included)... [facility] Wound Care Noteon 07-22-2023 Wound Care Note [id number]# 1.00OTGTIFF [facility] Coding Summaryon 07-19-2023 Coding Summary HTMLBase 64 GfmncsccAOp8mOm+PGhl YWQ+UZ9KDBKtQ71ivAFw cI4sZ1KHJPtLHsmuXELZ YMbMAkFyvvQoXG9mrGAy ZXJu IC8+YZ9pPAQbCkbapMUd t5Y0jQZ3O11bps3fQEnv wHF8OGWrNzYclpsfh3sm tUo8YYzjFyvjNlJo HPPupV48QUH2xW22Qg30 zSJumTIme2mwdOs9QrWu QSQwVYK3oOjxYShro3Ra HCKnA51tdQPsh2M7 IGNvbGxhcHNlOyBlbXB0 eR0dGPbdfdabh2dydoqo Ywg0ew06nHRvx2E5fWK9 X7NyolW7FKJctGUj LjqqcLIRmK1mfylgi8un mojmFsRrFIIaTBm7JRa2 CTFuwZvvXiLnNJ81FFA0 MWExzwCrM4HnENWf eOkcPqF8i0R8Po8WU8NB KzcxW2TSUCWGKDcvqFX+ UJ52ro75O3FqKlyuDqs4 BIDpNTN8jRX9nK3o CZFhMJbyc0C7uXI4W3Lc syNmiu7xc8juBHPuLEjv V04xdXLhj3X4QBNmzPY3 YHUilQchWmArgM56 Oyc+BTOsbNbgs3SiIigv i7frk5mevPm8WcgaWHDp ymVydHpbUKM8o4UuLg9r RGKzkBS1wPJ6bU7n OrZeAmF7BVivD508CjMv pMLfUcgfO45yB5IslXG+ CEDrQru2YRCdbVoyAE1q C8UgRVZryzgwzBIn aEgeJX2qYNVnzvnsIGHv dF4nYDQrJ9c3GdDbPoW2 FQwdL1HvKRQkcanwZv82 uM3dTkYuIeV3JHwy S4SoluS2HIUqhTAbJUoq MPY0L26is1I4LIOoXSHv QIU8pOI5uO0fdBzyonpy bGVmdDsgdmVydGlj NZthGUvmF200OWEfzHrm PkNvZGluZyBEYXRlOiAg MDMvMTUvMjAyNDwvdGQ+ ISJuFYZ9mYpwULVi sUSkKLtgJy2rgZyhpRgu TN0oUWTcdlgzLSRazG5j BRSavYKetIvsUO5yQOCj kdhjz713LoZgWJR1 LQHqrZSwW7ZiuN1yBpDt EPWwBLQkK4KhpKPnWRhf L478VNdxBtH7EEXozpWc N1KjLSWeaMgzWfD3 j5Y6Ev2Bv5LkhbfvF6My qYAfZkCrRfzlHZw5F5Fl PjwvdHI+UK21LHJsRB80 VXs1HZB4mTtuGLjz QIHdU3FggC0nCzSvMSMm ZGRkOyc+PHRhYmxlIHdp ZHRoPScxMDAlJyBzdHls MO0wDh5bNGAjOIPx hRyywQCnZwKlw4xsTMJk UAqpYB6ofZgkA8YtgNW1 GGOwu9q8Ja87T01tK3Lg dXA+KCQglBF8hBK0 yP9jIeCzYqM4JCpcY790 KqOuiUYnFezcd7gky6it dSl2PiT2NGQyalPcoUxj GWP5y3BuTp05E86f IHdpZHRoPSIxNSUiIHZh xTbyel7diU9tGd4+PGNv nVL3lZR7qW5cNsEtVeH2 ZFduY216LeIvnCYy Afmra3umd6nupBp1CgUu SMWvhlPzyKmaOAO9u1Kb If92N1SbwLcdp0UrYmu0 ra00jWDag2G1dZF0 P2MyADKywsgtdLEmwFuq YJ9uUGNiovitMOYwrT3h SKLaR1r1OiYgRhI9WGco E3ExtgN1QEApkOBc MQAwaNNHtC3mwxxzr6wk mxqgUzZmJEWaRHi0GVb6 VXHyyIvrNgItFSO1OoI4 YBQ5hASucL1hhGwl mwjccL0bBvv+FBY0eJRh uPVWDU1tGgcynYE+PHRk BGE4qImnDEioWIVyzH0q HJCrJ6v8YdWuGmL8 JTigJ1LkedJ9UJWqkRHv KMHpgORUkN2gmkloq2lq rgcnIpDeHABnCIz5KIm3 LWFsaWduOiBsZWZ0 CoN1GUS0uCAvmV5vtKqt zixusT7lUoa+QmlydGgg JVY6OHn7J9TmFom8YBNd mGxtTA8kkAKvXGyw Rg0rvRjiaUvwNY8uVFCt konie682CtCpu7roVCFp kNXnFNvoGPD6B23aa5B8 PZIuOIRxTIJ7pCR4 gL0giXvifqqmaWYdhHmr pnOwoXdxFFxgQDmhM676 LYSmcWqrKkVrAHm1K2Ko Ote1IEDwxSudOY3j dIXuZEfqPj3miEqatIzc CN6vDWRixnpmj612LkKh l7bcFAUaaVYlMBbzDUX8 D28fj0B7KANcLKGd UOO7lMV9lM9qbTjfdjvv bGVmdDsgdmVydGljYWwt XEbdK708VFEcwSiaSyGi pIn7A5XbSiu0ZHKs lXniDV7thQZtRHdkXs1k uBupyRjaEZ7mDDHvpepn b712VzBdn5anWPAgqSTo XJvmDET2B61ez5H9 EBLaJRYxOAD1kII0qI9z bGlnbjogbGVmdDsgdmVy uEtxTZkeCXutP404XUUn cDsnPlBhdGllbnQg ZIxrPFc0Z8TlPmrkiXY+ IW39AVWxZU32zBXmgJPc p7jahFu4MfKuQRIsPWK1 iUgnQXsnf6JjNUDr Z88pkKDjs5L3UVDmwUit rLPrRdSbbKL3uS0aNTnt synrd0kqsrqdRlpor1mu mf79zN94Z37hNXql ZHRoPSIzMCUiIHZhbGln ix9irK3sRu2+PGNvbCB3 vXU4kC5fJOCaXrB5YKjm A091FpGlwWPgUvjt e1xtn5hciRu4IpO3BAKq aqPykUhuWEL3k3BjKp17 H36rHOsrOHKcZPKbWKHy ZATnxRrbck5tnW2h Ii8+NSKmjJM1kUP7gJ9l QbAiXbF7CZqsX692IpDg vBGuFvrhV07eE0XwrMA+ PYSaNxt7EBPiiGxi QC4dwZHfWWwkRu6tCDB2 DmAwHfHgTJxhZ6RjPOQd zqhnifimiEN1KNFsMAIk oP02Fm3odGneQHPd dNLMeP8valthk8wxdtzg TaMqLPEwHQa5YGo2FUGa eFjlLeDuTWP9UkC5XWQ8 dIHspM0tuYgezcbl nT9yR1VtQBVitxjkUg44 yB2vMpJhNaP6WGzcRlg+ A3PHKbgdZK0QX9tNPIee SzwvdGQ+PHRkIHN0 nWdzBZksCIFusY7rIVQn Q5o0KyLbMsD1JMrtE4Cf SIPkoulnNz68aN4gAcBx UoS7SLrjW9JizyK3 XELcvKUlGUffVPB6J07i o4B0YQIrYIUaRKC1bWG0 uT4mxNbxknhejJUqqLva dmVydGljYWwtYWxp N283EMNdwNtnFkRrGhY7 RhW7ToH8P0PjAhc2QEAt eJorRK9tsFSfALrbSy6y rIeipVaiHK2dCUAg mkrrRRElqU0dHFDaaHWj oJboVM4bORGexfftd529 IaSmKRZ9CRZuqHZpE2Ir rM3dVlYdGBHvFLRv T1OzbOBxLXjoY281WMlw KyT6NMNaavXdR8NgZKMs oLcuYvA8a4R8Kk23BOZJ ZWFyczwvdGQ+PHRk FRE6qWnxKXqwOMLfcR6x NEMwJ4k1PdWnUkU9IFxi B4YhEXJctmcuQa03oG1n TmMyYjQ4LPzcC4Ib hvO6BKUjhUQmGZxtFQT8 S49og1T8DDYzNBAvLOK8 mZV3yU9fcUnyylkcaXVe dDsgdmVydGljYWwt TQonV307ORYoaQhkZc9Q COE9C1FiDty7KIDqnNaz ZE3rxQXkZKvoHs8guNfe yCcmLV1cHUPvtdfc EKSrdX8sRIKfnFFguJsf RJ3xEIQcoipjn108DpKp HON5UXVnaCKiH1ScxV0q XeAhRTFfNNFhV2Ep hAHoQOwvQ391EZktOcE7 BWPewwDcQ8NqKPQzdMio DrI3i2G9Cq6OKKoybTW+ GN89ve72L2PnQkiw Utu0CNQbMXO7vOW5tG2c ZTKsCPmny9D2uNJ8J8Ue uoZbqr3io3fbUKOqDLbb T37heOAod9D8AAQr fKB9SGEzjZmrAjIewG08 Oyc+LQSouHnom4PnKiso c0ctu5wclFi7QnUmELHx heQwnFwaBJS0r0Mi Cr16K55pPSdxDVPrCGUz MACaOPXkpBglul1ddH7b Ii8+GNOhuZK0qEX7dY0r JpIuAlW2KTnoN665 ZiAdqEMeZcaxp8wzp9ni yPw0TbLzNFJccnYiyUbg IGP4p2PhGu55K3ZieVxw i9ZwRsp8ij63qIEu z8H0kWQ7Y2KyXTFltxkk mEPyhYxxKZ9gTXJawmgt ALXxhW8pOPVbI6s6SeTf EsW8ZRteE3PfzvQ0 UUZeyNJfDLAxrFEIoQ2o ghmmj8tonejcXmPuXURo KOx1XAk3BPUvcEwuPfMd TDN2LpD5VNR6nQRv pN8cfKguewwjeY1pUxz+ GLy3e5uspLJnCT2wcWW7 DC12ZT13jVVnv6J5bPV3 P2OhRIIiokotjwml xPR7NFDtQXPpwZ41Tk6p dOjmCw3xJYOhKZS5LJNq lOGfX3QgcC6kGdKvCPKi QYXxB4SiwTUlMQvy L713IKpmDxU2EYAtipRj L9EvRTKhjSqlDcZ4f4I2 Bu0DQZ99UW95VS28qYSq u3C3eKY0M7TqAETm crcdpkkwgZD5PITeJIAz mZ32Zv9bzDfmOi0qDCTo NFG0SDJcjUZrI7EgtF5g QuFpSQGpOXRmY1Rk dFIkPGraG267MPneUgD7 QSZsmuGyE8GdLOGdwEig BbT1h8U0Ip5CCy62UZ64 OJ13sTJyx2Q2kBL7 Z7FeDTBlxoouizuufIR2 KDVnLGKdcF43Tl6sgHzq Us6vSWAoQQW0KNTgaRNq R5VnrG8pWhCuGVGx RODkX2XotUSgLZbyH450 HKjiMoL1OXEyurQnI3Vd NOXynXppWqV9f7K0Ax6L RNtujbj0Q5EuIfcm dHI+QA79KKKhGE06oKDi uWXch2oduPr8VyLfVYQf TEO8uAljIVeqm7LzTDVo Y84meDPri2D0DJEp bGx (more content not included)... [facility] Coding Summaryon 07-17-2023 Coding Summary HTMLBase 64 UkfqqndtCJn9pKg+PGhl YWQ+SU9BFAGiV47dyCMp hP1gT6EZYYdMZuziCXLR YOeUAlFgzsWjOV1asRZs ZXJu IC8+JM2aYBIqHdackIYl j8Z5bFW6Z24qnq1oDXyi mGM1DUQlEbAkppprc9bu lOc0KIkxErzzAyZs VIZhbF08BLR6qB85Ih46 dBQhgVUnl3hobSd0PuHy OAWkOTZ6vYipJOorf1Hb TKYrE02fkUKdh6R4 IGNvbGxhcHNlOyBlbXB0 wV7oVLuxbwrao7fuqzec Uqd9pt82kMLxk6T5nDO5 W3ViyoH5TOFrcAVh DifwpZZBtM6pmupgd0gl uddoZoBrROFySTd3PYv2 USWsgAxiFzZwZS44ZZX9 JEQxnvFwV9KjCLUf yYhcQlB5y7L9Dh1NK4PG SozaO5LOUAZSRDtgdGQ+ HE12xo20J5AiLisgBap8 DHEnRDE7sBP5yE9c XTPeRNkmb7B3sAE7G8Eq uaPmfj5uh2kzRZDlOOhx A70bmQQee4S4UVNzpWT1 CIObhDpvMaZvgB87 Oyc+DXLvuTlfi7ShBsct q6usj4uoeAi2RidfWYUl lkQvnSdrCNG2d3LsOz3e AUUloLK5dHH8vV7p PwXqKqJ7IVriS593CkSz wPAoXzckP50fK9KwlEX+ ZQLxYqv4FGIsgEefUZ3n X0IkUMSshzretGAf hVgmTG0cBJPvhxtwKTCf wV3sUQPcB7u1JuXpPzT9 DFkzA2LnZOUjbhkpSp23 eH3rOxUsApF0WXbj Y7FbigD0PEGxwSMaFIus KWH5E77sn4M0MYVyQYFo PWH4iAM6hZ9ieSorodfv bGVmdDsgdmVydGlj DAjjLQqiI504ZVImhSyw PkNvZGluZyBEYXRlOiAg MDMvMTMvMjAyNDwvdGQ+ YIUzZYS9rGrjOPAk qLBnLKrhZj6osXtzpMui QP4iVYZfqfdfTAOwlG1m FOZkmWAxrAhnSS5yGPWq daaen680WjNpDWA5 QPZxcJHnI1TqcK8xEqEi ZVLwEXBgF9PtbRXdKKtm Y874IWicZzQ3UAAwrmPq V1EmPWVopSzbAsK9 r7N5Nr4Lg4WlwrebJ3Km aLOdTeLaAsziPIy7C4Te PjwvdHI+KL44RDTrAK60 VJa9SCU1rKjyWDbe DIYpT3QyhF4mQxCzHAWc ZGRkOyc+PHRhYmxlIHdp ZHRoPScxMDAlJyBzdHls RT0hNx8kQIWuKVSs cWjxbEDtNcRsc1mwJKOi KCvmVS5efIjkX7CpnKD7 MIMns1n8Rh22U35kG2Gt dXA+FPYijIH7pMC1 vN5zLzTwYyN7SFdsU642 QuUblMPfVezak0dyp7qg kWy4FqX9IHOpdlXouDbt FQU2c2RmOn71C45b IHdpZHRoPSIxNSUiIHZh hZvahe2qtS5tRg2+PGNv sRD9lWC6lL8fGxScTxW0 HJgeV814EjAkkAPh Nhwyj7myy7viaNv1MtAh OWHlwsYgbFktNQQ8c7Jn Sh81J2QrgQeeo2HlSvn8 ek84bXIzy4J5lYC7 L4WbZTJsvqbibIQlwYsk LD0qYRYjoleeUPEffU7m WWLiK1k7RvItXoH7NCwx D4UesyM3UDUejBWc KJZmbWARjC5mcwjfq9tl pvaaBvVfVVJgLFu2UGb4 SSXvnNptPgDySEH6GkQ7 CVS1pIVyeK8cvAtd vwoozK9iUls+OEY8fYRq qRQCJF0mRbjexZE+PHRk FKH2lOjcAPxdNXYdpR2h HSYyC7u8JbDsAeO5 URroA1JtwgG9APAyoXLk XLRfvGZTjY3rckkvk1gr aqkiFjNyIGRuGVz0YQn3 LWFsaWduOiBsZWZ0 QhN1UFJ4oLRxzW0ofIqu msdjbD7kJkm+QmlydGgg BHF2DSt9D3BlYwx8WAMq qUzaAI3lpDEhEHsg Yn7ekVkyaMhuET6qESQd rzvgr739EhYyk4tyQBWs nNHbLTkpWAZ0S51xh6W4 UXXjXGOvKJA7rBM1 xX2vtSvfbmbtgBIizWke esUbcHbwTXxbFQwzV392 ELVfgJnnUlCtAZo1K3Np Sij0ZISeuBzxYP3y dCYuVBrxFt9tdGtkgIkw DC3sKBRjpvdbv341BaLw k8reVVMmyGZlJSzaCJP7 J95qb9S6ACYxJGCy DNL4lPV6uD2wsYsgtjsw bGVmdDsgdmVydGljYWwt WBkuD327BCDfyZvrYoKl rDm2Y8AnEst3PSCb lTfwOV9fsRUoPPrhYk1t gChgfZpzCK6dOEQvljpl s424VwZcs3kmDLHevAMh GMmjKLP3D86sh2P9 HLApXLZdJAD5oIN5cF9a bGlnbjogbGVmdDsgdmVy tNrfLJplGKdfL803EVRg cDsnPlBhdGllbnQg QBdzBWn3A6GqCzpedRO+ RJ10MCWdPN13nEAvqTYg e8pqgQs9QyLzPCJlSKF7 aXcdDDfub5VjSZWz M88jfNXgg8V9XANqhJml pVPhFsVjrYW6yE4mOThe iiiva8mrgppfIfrpo9jy fv26eJ28F63rUNgz ZHRoPSIzMCUiIHZhbGln xj9euR9bRo5+PGNvbCB3 fEM2kW0uNVAxBsU2AWxa P547AwUgzNRpVptr w4pep0ptmLw6TbX6KCUt waGbbQfvWXY8f2NgBo99 P09kHSwlEAGuCXBzJDKz KPZnjHykvz8cxX3a Ii8+PJAtsSC1cTF6vC2z AcPvNgM7YTgiN326RyNn uQWsMdmqA77mN7AbxQI+ QXFcOqd3WRPpeMxt QX3pnVOoHTydVe0uAOC6 UeYnQmRvQOeyR2UfMUBh kqzrvofvtRN3FSSuXFCc mO35Uk7gcYvlGBLb aGXNvC8wjoafn8olakjx ScAaORVaHNe8SQw6KRRq wTezRbFpRWV6RsJ0PMB1 qRIppO3woPhmmzcg oI0cY1BnYBUwnzomCf34 gO3eHkFtYxW6SNaiIke+ N8CDJnofOX5YI8bMENfc SzwvdGQ+PHRkIHN0 hLqnRYkyJPDplP5dAZCf W9t6DkWdNtR9NCfqT8Ym FDRblkldQu63zF6xKgOp WiB7YHhjH8AmgyA5 JGUqwTAhQPwkRWN0N78v h7P3XYHbAMNvVRO8uJP5 aI0jmDyafuzwcPQurFge dmVydGljYWwtYWxp N240LFMckTzmLhXiKzI7 AaN9DzN2H9YbSfi0RUYg pFukTG5ltNMrZAwcMu9l qHaiuOkuXP6dLXFv zuqsJFPqrS9xORNmqDJe kMnaLJ9sNDSqfgpdl025 UoHkYPR9TRCdgXIzJ1Qp lL0uXwFjZXLcCUPs P3TisMTlSVooO500BUdl IgZ1JAZbziPlV9RfJZAr oBdmYuT9d4Z4Xb84WPBO ZWFyczwvdGQ+PHRk JHA6rDukXHczJUMdsF8z FTChS0d0QpOnUuQ9PSut O8MzDLDfiibnEr68mL0j DyYuMkJ8ZGphJ0Np ifT1VHZgkVBvSOtzVTD3 J57gn8R8BEDkULGxRQJ5 tXL8fG7dhLuronipmDNu dDsgdmVydGljYWwt BKlmN194PSTjxIjcDm3W FSX6R0ImMup1ALAxiYyy SO5rpPCaWUewIz1hrCij cTnoJD9wHGAxrtly GZCamL9wVATsjJCjiEsz IQ7rPIRivbqjf084JfVw OFQ6OZQppEUxA7MwfU8w UzEnBZZpJMLbF8Cj sATbXQzaS709HUapVsH2 CEBwutLoQ2MbOXYpfAog NmV1q9R5Gq4BNClgrUB+ OW64fq20S8PjYeha Nxz8PNAmWLR8yXG5xM2x ARQaYVmln9L5aLY4R8Ir wvRzta4ot8neZVCpIZfc O56kmBQob9G3ROPf pAM4RPMwbRzdZePzuK55 Oyc+CFGslBzla0OqLspa d6zaw1viaUs9KmDwQAIe ohMosXnrNHU2b5Rr In89Q13sWFamPRYwSNOi RFYbKAQydKzhku8kmP1m Ii8+KUDhyCP4dCK7mN0g SwMlArQ6MIxyO740 NpLqeFGiTyala9gwe2or oZb7MnYvYSLcsqHniYaf SDD2z0JqJp46A5GgiHlj y5PbZqh6qe12nDJc l0Z9lCD4E4LsYVYmbnwb xGKhbGrvRD7dWFCaceli JWYgpM2wPNKuO9f2DnAy YjP5YUtmI0JgziO4 CNQbfNHhGZUhtXKWlW4h ejnbt1mrylrqKsCgEVYt RZe6GJi5FIIsnZwlCgKb WPL7SoH9AAT1yYYw hW6ruGqmbxgptE8uWpp+ LFb3g3tmnOYuPF8yjQM6 DT07WA64vDIhy7D8bZB7 B3DgVJXlobqhdejd pHC2PNOfFLSlcJ71Gd3i tLaiOt4jJDZmYJJ8ZYDx wVDnG4CnhV5zJvKrTKSq UQByQ5VroQAbNCeh H595EMicNnI4XSWugzZq K6HzFORmsMakBrI8y9J3 Ko2RGQ18QB30GL08eCEf o5C0vCV6A5AkULGz uwisctdnnSM6ITGkSTVl vC22Ls0cyGvdEx7vXAOs KVZ5RTQnaYXmO4ZujC0k FjBvLNUfRTDjO5Oi rRUsWEmoE291ORvbHlA0 IUAbdfKkL4RrWIOjjYha GsS6v1F8Zl4AHu40RM56 XZ16mSQuc7Q6tSJ0 D1EmHVPgpiwzofikoPK4 OLPgUQBeqT63Nt7fgUgb Sm2oNPOiCNG4HCKjfPTk O5KudZ5nQhFuEWQd EPAqK7LccHFeNHopH113 WOtwQeZ5CRZcavBcZ9Xp HNDnfMxeEhL6j9Y6Qs2Y YSqaujw1M7IjCrrq dHI+XE92UMSsQL16gOBo wXLie6lmdGx0SvHbMEOy OHE3hEmqOOxgp6NwISOn Y70sgHKrn8D7GMVa bGx (more content not included)... [facility] Coding Summary HTMLBase 64 YxxhamlvHBf7yZo+PGhl YWQ+IB2PAAImD21grANh zU5dR6GWIKaZUvkyFXRW YLbMPcIophMiEE4ozHJw ZXJu IC8+TU6kRFGnEjszpHGz v0B5zMW5K39mxh2gJNdm fAI7IEBcPaAbwhxjw4df xDk5YFbqCngrKbRm WUBxnL59ZPD3rP74Fd17 fPTajETie6ltsHm7RbTp KSLrNHN4uZffJXxyu9Oy EZThB75wxFIea7U2 IGNvbGxhcHNlOyBlbXB0 rP6wOPblmzonu8kspulh Vcu9es40kIPwv8E5bOQ9 O3XjltG9TWTxpJHy HnnkrUZEiM9dpbujp3xf lqkqIiUmLTKeJTj0GCd5 DAJqdIxyWhCrTF88PEJ0 LNGrmiYgO0UhRBGu bQrwTdU7s3E6Wb4QH7TD JuowC8BEYVZYSVdjdQJ+ ZH86hh27A3MhZmwwLwo3 QAUcNLS0zFX1qW1c LWAiYZfxp7T4jQZ6K9Ji foBfbi8bt5ivDEOhIVsh H11xfLZak2L6QXNuuCN5 BBMneZgaXsGwyC22 Oyc+PFKaiOxdm2OoOako w5wli5hikMs7UgztVZZv wrOemNqzFFE3c3RvYf2v YGUsjTO2fUE8cH3y UvNzFjF5HWmfM110DcDh fYWpOcxlK74zN6KqlZH+ XIKaVdv1COJpbFhyIU0x O4GkBKEccbqhrOVf gVvnMM2rCPIxjqwgGOVx bE8bVLSyT0d7JxYtNlT4 LMaiE0EmOJHpupkfOt21 xT7uOkYlSvM4ZCft W0XeckZ7NYQwkVGsNKrs FOS6P87mq0D0YTMeUZQm ZRO6mLB3wM7meGgbyjqd bGVmdDsgdmVydGlj SVryUIejA653KYEykLqh PkNvZGluZyBEYXRlOiAg MDMvMTMvMjAyNDwvdGQ+ FNVbIDI4zGljILVz vVQgJPtdXp3nsDmesJie FI3xTHRcfopwJGPkzA2n VKGnaETjvNblNM6tOGRc ubtbj561XsRxXKN6 AXFruTBxG1YdbH1pTbHr ICWyFXSiL6KkhVFrAZlp V854HGuvGoI0XPJrknAb H5KdHPKhnHdeNqS9 g6D3Ae5Xb0XskfqwD5Zc fKYcOpIgSzwzPEq2W4Qc PjwvdHI+UT70MDOsLA09 IXl6KQA2xMtqXLoq JWFzG5KubR9sVmSgFGJk ZGRkOyc+PHRhYmxlIHdp ZHRoPScxMDAlJyBzdHls OL5zNr4hKWDmILXo dTjubLBaMcCvq3kaIIAg KUxbQU8xeDhjC6SeqQF5 OKNwm1g1Sc64E79gN8Bb dXA+RTTwvJM6lFP2 fE1oPuAnNmQ3UKllA014 NwErfCGuYsjxy2huu4of iSf0JwX6GBQicyCqnXuf UPL4o4KfKa88O10b IHdpZHRoPSIxNSUiIHZh yBnsti2prC1eCz9+PGNv kHW1fLH4pB6qLmVbOdC3 HOjpC949OaTjoXSk Jipnp3agy6gvjCu0QvWq SYFkpiYunQhjVRE6g9Ql Nl58G0NodDrpv9EqPtk4 wi02oGFww2I0xCW9 M7ZiBYWhrlndfHVabFdb GY2xTRWneokaNRNwhC0v LZDiK9e4AhYhLqK4VSbv M4SjdeN3USUctLFm HXHnnMZWcF6ixvqey3of zxpeCaIuSCZaORy5WSq0 FOVmzCxxHhVzVJC5QwU2 PIQ8oFJkyU1xjMvi zivpyX1eCxk+GHW9eLLb fOEGRK6oMryxzYS+PHRk KRD7aMrfJSakCOVfqJ6d NFPgD5i7YsJnPiF4 SHalX3MlfuE9BQIilEUz ALHihKAIfH8mkguoj2hv ochpMlMcOQLaATc0LVh2 LWFsaWduOiBsZWZ0 QbN4CYN4oWQkcC5bqLfl jmmynX7nJvq+QmlydGgg RSS9YTw2F2GgXpw8NSZj tNqeBQ7yuGGgWHet Fk3liQbecDevAU0gRQYg pkirr151DoHyf3wbQZRw eADbXPmvRFH9B78hi6M1 YBVoBQCvNYD2cFH6 iO9fdLiphinubSVpuQnf mzFfpGasFCsiRHyfT880 PAOqxNbpZzUeFLg1U3Db Ddv6MTHsoMdgCM0v hLYcXWggDa3lzCjvkBsy XO1sCUDfvizaw658ZsKd r4azNIRbqYSrKObmAPP7 H44gr6X4ZVEvSKZt UXN9lXS0mB5trJvkhesg bGVmdDsgdmVydGljYWwt LBmjD237DXNenKdqCgYd pVb1Y9PwCav0FTZo iHxvIU8fyCSaXViqQx9f xIntuEnfBN5oVIEcbfqi j817HzOmi2gvUQOafTCv OGwpBXL7J23gk5I2 WSQzCPBnIEX9zST3uE6n bGlnbjogbGVmdDsgdmVy qTtoFWdjKDufC179MQHa cDsnPlBhdGllbnQg UIurECa3Q1MvKozvpMU+ XZ50ITXxLS18dBOymHDf u7hpvSb6CwGaAQYdZOT3 fBbdRAjql8MlYGYa N41pfKMub8K4EPWmwFse zCKyCdEqqOQ6wB9tINiv fvhmw3xudsbaHueti2qy ks72aS21N90zGCxs ZHRoPSIzMCUiIHZhbGln oc4ltZ4sRf4+PGNvbCB3 fNE3xQ3cEKUmShL9HCfl S713NtMpbVXpLunp a5mvc9jinXl4QdJ3JMGm wdZnwKzvOVY0z6ElMo24 S12xWTsrRCXsAYFpQBCd DGSktMazoj6hjG2q Ii8+RHLpmIP5jFC9nA9t NiPpEzH3SCvmQ296NrOw xJYpWovwM97fJ8WvbHC+ FOObVbo0HWTbyVts ON9rrLIuTGezAa0xPCX4 YdDzTbFdGBloY6YdFSGf rwjnuxocxGA4UAMtJTWr zW34Ko2pnBllVMAn zOANeN7ekmpoz7vqmkxi GzPlEUGbWHc6LWl9VNKb oZkpHjKaTBJ3UkT4QRT7 qWNizK1rzVxislhd fL1dB1MjSGOmseggLe17 wB9sRoWeCgH2CNuqLih+ U7LLDrxiUH6SY2eBGZii SzwvdGQ+PHRkIHN0 mIbzBEvvKGYvxU0jQVUm Z7s8JxJwOqC5VWglB4Nm ZXHqqsjwSh13pA9qEbHg DtQ8RBguC6UfwuP0 FDIcjUDzAQhuGQR9H08u x3D2CIPcYYRaUSJ7cOL7 tX9qpJppqexheVOmrSiq dmVydGljYWwtYWxp O939IDLwgGhoGaIuJnK6 KjA2CfV4Q6ZiLwv5ACYx jPwsNJ4mgRWwMAosWc6y dTtyyNopRO8zPFJr vczjTEDsyB5eZEOmwAGe fYfqKS9oZBJsgdpxk298 KuWvIWB7SBYjkKKrK2Wy vV1kUuJhRBJeUUKa F0VpdGAwYJxlI629VJai XyR0BFLlnoHiH7PaDBDs pEdwFpE5a2U0Bw68VWIG ZWFyczwvdGQ+PHRk YXC5uPnsVGxmREDfqB3o GOFhC1y4CtQgVnZ8USpq W1KzPGXabxwtOj17jG1a NoIxOxA0STeiW0Hq krX6KNGfgTWzCFtvMAZ7 P33au5D4OWReMUYzEML6 tRQ7gA6gqJekyjtqwDTf dDsgdmVydGljYWwt AHcsV884AXIkgSgcFx3H IBI5K7XeCuu2MBQnjBye QK2knYUrEWmsJg9ysTjk uKbpBW8bPYMavzwl YMNktU6pTAHusMCtvEbp KC9wXIUhlbnkx353LtFr QEX5FCReqWNeN4UisQ9r SyWfWEXlZCOdP1Vs kBInITiiR458LFotDsZ0 WTKbygFnD3SsBMJegUaf GmR6h2C5Fu7ICXivpIK+ WS54uf50P0KxBbmz Jyy8SBNzXWW3lHE2uO7w RNXoLIwhw8G9cSL0T8Sh fvAjco7is0hrTNRaMBxa T89svEUiq3K7SQHz mKH8TFZnkRztZpGbuV96 Oyc+IDTkrPjso9RcCkns m7jhz3fkhPe9EiOwUVDo hxYzuRzqPBT7d1Vl Fy74P17pTKtmUUSsNJQy SGVxJFWeqWathv6ypN9i Ii8+YNArzEV1vDY5sM2t SxUqVwY1VVsgX782 PcQfjJNfTjufn3iom9my sQs2UdCdOBIelpRumNrs UWD2v5PwWa59J0PyqLfx s8UlDko1sl19eWCr s3S1fON8R3LzBVGrohtr fUFfhFqwPW6zGGZetjop DKHecL4mXHByI1k4YfEs GzS5FBfvA4RastJ1 GYDvkHXqUQLqbIMJkM3k ohnch0jxxrbpUeQlRZHi JBk6SLa4OVBlcCqlGbVh ZBM5NnU3WYS4iONp pB4gwMenrowzlJ4iVnl+ CQm7t9jhxZVnHF2btQO6 FP48RG17lLXmx5A6wDH3 G6MrMSJjmxputxnq fOD7VUNxHGYksK18Wz2o nPdzJs8hZEXwGQO0BSQz yYXaV2NmbS2jXdAhVIBv DJUfV6AabXWqWGzc M266ZPzwIfR1OIMuhfDs U7CcHGUxhZnlOuK1e2Q4 Iw7OLA48CI93OZ52mEIs v8U4gIY7M1XqDZCx ujuuzqmzdRB0YPTxNPLl vN88Nq7bkDszDa4iUQYu QSC0CBIbfBLxZ6QzwU7q MwHdSIOlXHRuW9Ph aVTlCOzyK464FNmjGmP5 SYWfllOgO4XwXMSycAkz JkX1r7S5Yo9BBe60EZ62 IM11gEWjb5X5mMA5 N5HcBMEibbtwtqkniKV1 HPMyOKAxnQ39Bc6haUcv Qd5cSJSqQXZ2DBUhbXAi S0ZfyE4fYkQuRMBy NFKpT0MiyGBnTJkwV416 RSrrGcM7NLTsmjZcL3Cb YHTqkGjwNzX6i7H1Nm4L HLbvqml7B0FtKefl dHI+NN87ODRoBQ52lHHl bYHtn8bmmDr7IcQzLSZg SGB3rMliIPwkp0DpZPIr R42jdFCqt0K7FJYw bGx (more content not included)... [facility] Wound Care Noteon 07-15-2023 Wound Care Note [id number]#1 .00[facility] Consent Formson 07-10-2023 Consent Forms [id number]#1 .00[facility] Outside Recordson 07-10-2023 Outside Records [id number]#1.00[facility] Coding Summaryon 07-09-2023 Coding Summary HTMLBase 64 BiiyqewsSWq8hHe+PGhl YWQ+OF5CLWAkZ73skHUk fP3oO4MORVxHPczbDOET OIeYHnAzdrVaSS1elSHj ZXJu IC8+WE6rNUIxKflwvPWi e5M2pEN8G62onx1oDJag zDD2RPFjOgLcokpjy6qr vYg6AWfzFrskLiEr LBQjmH97KOT6yG44Ax50 jOJtrXVkz1pymTv1WgWi INQwISW7qGrjIIvjv1Tj ATAuB24daWUeo6R0 IGNvbGxhcHNlOyBlbXB0 xQ9lFClbywnup2fursco Von4bm65uNTmo0O0mKP1 Z1XkgeP2ZPGgmELb EtylkGMEmC9jgaumi6oe lfmhLcIhBEUuFTp4MTj2 JCPjtSplMvKpFW72RFQ8 OPQlyaGsL0GdEUZt uPavNbA8q3P0La6FQ9FM NsivZ6WOJQZZNWfdvSB+ EM52ib31V8OfMjupXyt1 KRBtQCR2eYP4vQ1g LEYtZLrtl5A2zRV9G4Dk gwSbtr6uh3teUPVoHJcm O73ryCQuq3D0GXHbkWQ2 UYRihRhaZoPboX50 Oyc+HMKrrJtad5FhVqlf k1ttg3pqjJt8CfnlDPVu bqScpPveYLT8x5CkYq2r TZLfoYP5bDF0nV6w MpQvToQ9SMrbX155ZkSb zSPqXlusA76rO4QunWU+ MZFeSgp9DPRiuJjoTZ6t E2CwBEDbbftniSWb gAbkEA4sKIQpcsmgOZJu mB1yFJVmF2i1QmTbIpT2 XIxwN8RmKVZuoidcZm85 pB3rJkUcNzW6HEay W8ZhohZ8TASvaJWePZbk PIW1H50fq7X0XMXnAUOm ZKH4tUO9wE1jbAjforcf bGVmdDsgdmVydGlj ZYlbJHbfH185FXSezLhu PkNvZGluZyBEYXRlOiAg MDMvMDUvMjAyNDwvdGQ+ AQBlESW6kWnaYTUj mUWvKJiwRc4cwAnouKqh GB5xRQQbbxizUKRuyV9w GSRjxDKdmJjfUT8lLAIm lxkwe307NePiPPF7 MVGwdGZbV1QmaQ7rKiUm LVLcHIKkO6YroQZpHAcx E921YIxwBsV1VYCyjdTz A1IrGSTqfHanUuR2 s1E9Ac1Uj3JjmrdkU9Ft cSSyMtHkLjapAKq8J8Xt PjwvdHI+DW33FDBtRK95 KFz7TOA8nPfyQJzd FMYsJ7IqjQ5vCrYdSHAu ZGRkOyc+PHRhYmxlIHdp ZHRoPScxMDAlJyBzdHls VJ9wAd4kURYmPROg xIrqlPXnSbWju9crNHZl UQhsOE3mjJkvG8MrgVU9 KSEns7b5Hm09C80iT7Qu dXA+JIGppVX8xNY1 oM0tKhMnHfR4ANxlV040 RpSeeFYqKvutz1scw8lw bXx1IrB5ABBofxHktBhy EKD6z4GeVh73U41x IHdpZHRoPSIxNSUiIHZh zArzbx6gfY8oMx0+PGNv mUV4bQR3vN9mLyVgRkK0 ZAjfP476AtOtvMJu Ytytk9bxc4ewfWn3AfHa BYYqriNbxVaiEUL5h8Qy Xa55N6NesGwig2LqPdp5 jx58sXIyq1C0qAE4 Q4UmBPNjrjlnrHFspIsm OT3aLHBmkgxpBQShaM6n DEOfW5t6UkFyJyH7GUrn Q4VqclM6MIDshPUc ECEmwBXItM4dncnts6wf impoOnYvTNIeZTs5TOz8 PVIlmDtvKtQxEVJ4QfH7 CHM3fDEsbN2dlNef xtvdjH9oWnt+MHD9iCEw vHOKHY0bOsdjfUU+PHRk ITO4tQrpZRdxBDSivX4y IRLvL3j5HpPwTvU3 GKcsE2OpifH3FJDwlVSe YTYfvKDNmR6qklepg9zv vjilUsDiLOUuOIx8GLk2 LWFsaWduOiBsZWZ0 GkT4IVZ6nIButX9dmDgx mrxzeC6kNtz+QmlydGgg KNU4ORt3Q0HoEin0CCMf wEfmKQ4foEYiPDnt Yd8lrVyzkWclEK9lDAZv knhin378RiFfr8blHKQb jIHdGSkhRTU3F56ss3N4 WKHbZWMcXVI2aVW6 lN0wzXltvicsuQYeeUkl llCrePvtKPqoCFwdT062 KTPnxLmzAbVqHCs4S5Kz Jig4GSUnhSpbCQ3p bSUgVRzgUj2yrKcxiXxp IU0eMYJiuwess562OlKv o0vrPHCqaDQfYYcuBJU7 M81sv0Z7WYJyHIMz CTS6mSO4bU1doIuyoqyw bGVmdDsgdmVydGljYWwt HCtaF776NPAdoJwhXhHl zCi4L9AoKle2EADj aUinFU5icNEcQJzeMc9o hBnnfGwkBR1fDACfpzfp p311DcMld6knEASgdEDm FPomPSJ3M31si7O3 ITDjPUHlTPM3wJW2jK9e bGlnbjogbGVmdDsgdmVy sQgwNPogHBwgI726CSXv cDsnPlBhdGllbnQg TBdqZLt1W9NqAopndHP+ RJ10RGVdUD17eNQkcCBs c2uwzGe8CaDrOFKgUVG9 eIzrSPbya3OzJNKu X05czUNdg6I6HVRkfUbs uDXyRmVjyNK3eK6jHCgi ohhse4wfqfvnYbzmm0lx hi50sY14J77lKHkh ZHRoPSIzMCUiIHZhbGln yj5pmG0oXb3+PGNvbCB3 bMO4dP1zZXVqOvZ0AVyw U417YqLxzGXfGjrz t1ubs3wagOl8BaG3GYWm cgQtgEsnLLL7l1VtFb41 I63xUMyuMZAfZCXpNPHe IHZbvWnlau4pjY6f Ii8+TBQvkFP1mMD6iQ8v QhYoSdB4SPtjO562OoFo tGCbIkvfY40vB4TzzUC+ ODUuUpw1DOAzzRyw CW8uuZEsJRtrLa4rPMR5 DsYpCuZiWWlsB8NkFJWj pcrlfndwyVV9LFEkHAEo yI96Lx6jwDyuTCPw rXQEaJ7pvedwj3yyfktj CtHcXBFgEJs9QVa4YXOu vPgbXaUjHOM0SdV1DHE5 iGPysU0ftJxvazsg jI3nK0LfRNMhqppxEh47 aK6rVlZsOnF5NUvaAjb+ R5TKBbpcEU6IY7xNPDrf SzwvdGQ+PHRkIHN0 rNhsJNviTKMynE0gHVCz V0f1UlNqPtP8VEceY3Sl GABkvlqcNu08nR0nFjQq OtQ8AJzsJ2VejcQ0 IPKdmLRfZFmdFVD7I55b y6H1DVRmMEVaJAW8mQH2 hP4mwAlwdpmllPDujXmj dmVydGljYWwtYWxp A280VAMbkVzzXxXnRfQ6 NkI1ThN0L4CnLrf0ZNCd fBotKU3olJWlAZzoSt1o zXkddEntNC1uSYZe xdxhKNKusM5aCNNtiUMy bSkvHL1xSLDzxsrtb792 BaCpKXT0RMNziLVyF5Jn aI0xKiPbIOKeHRPx Q5GhkYVkOOmcD394UVjr EzS7GGVsjcLmH4WvXZDa dFqwIxZ1a7G7Ad78FDFZ ZWFyczwvdGQ+PHRk MIC3mRpeSXzcDRGpiM9t THLzF8g7MsHqIiM8CMsl Y7WdLBFnewnoBf63pH8g QfSrJfB1DSocT2Mf bkR9ZZVrcCWxTTnuCDN6 Y31zd2X9WGTnBZKxZVZ1 pPG8oB6ddXdqiovluKMn dDsgdmVydGljYWwt OMkoP597FJNvvQyoMg5J SHJ9G2QwBbi4CNRlaHbi GW0ftJFpFNhyWc8ciVbf cObiYK9nZCKaamor QLGgyQ2jHCZuoLVhiUhv JR3jTVFhuggnr523BeCa IDM8FRWqoCYxJ6OgqP3e QpVhLCLmZBMsR5Gw uVKsMYlrJ571ZAamYbG2 MAAgzgPtJ2FrLMYnqZbd QlD3g8U4Xf5LHZlkbKB+ MI86un78A2YzUcrh Cki5GACiXCR5tQU4oW4q CXZcXYshs1E4aVU5D5Bd bsYxwr2xj2lbWWOjIIgw E11qbGTma5W4EFTs vVM7IBMlkVvsFpNyxC14 Oyc+HMVcrOabg8SkWmez c3fcm6zbgWs3IdKcXVKz peKyoWluAOB4k8Cy Ft98E17lBRiiOMCzFVFm JDCfUFMltVlyoy0moN0s Ii8+ITEwvAJ9yXB5uS2s CyZiIpC7IBtvH931 XzOgvVOtPmdiw2vtz1ke mPe8EwCgLTFdqmIahSme OWC8o3BdEo81C2NsgRwd j7AyYat2aa50hFJq w7G6rFZ1N5CmFBVxymys iMWjrQvkPG6mOAXszmhq HLEmsU7mORIgG6w5BcZh QbZ6XErqB2IdheG9 WYWpaAGzHWDwzAXRbL1m hsyrj8wlhxwhQiBtTSAv PEm6ALm4QZBokGqbSlMa TNO1PbS3QHE1pWLv yR9zyEesubkllS8mZwe+ FOn3m3gylWZdKC3ldTS1 WW79DF62nYFae4W6wWN1 C5WuQKSlmncdfhvz qOE9OROvYSXcfN25On9r vDtwFu7jCAJyOKG8XXCw sIQmV3QtgI1yFvXhQBVi PXIiB6CoxAOhNAyn S980VWlkLlN1ERBnykQy X0RsVCTlmKizByP4x3V6 Ut2QHG58ZY85WB30rNPp v4A7eRA0O8GrWSMt afamsolxvSB1GUQyAHNm tV48Wt8clZjvBp7oMKJf OSB4WRRinADtD9ShhX3c RbVbVNPlIACaL1Eo fWKuODfmV210SEwsTbK1 CKIccdQfI1FhZGYjfHdn TdR5n6R2Xq9RCx95LD92 JR39sVWqr7C3uIF6 R8GzWXNlgivuaropzYW5 DWVoLXQdbT77Kh2mrCto Px1mUBHfAVF4OGHvkWKu Y0LjsG6iZuLxWJWk CJQcD3VeeLNrEFxlC928 NEdlNqO4PIFrbhRwT1Yb EUHceVbjHcP8o7O0Ic4K NOzifcr6K0BaThjd dHI+AY13SWHkGY91fGZi jGMgz8mqyBk4ZzZkQKLa UBL3hSwuTSbum6KcBPWu R20oeTZsh0Y5PMNb bGx (more content not included)... [facility] Wound Care Noteon 07-08-2023 Wound Care Note [id number]# 1.00OTGTIFF [facility] Wound Cultureon 07-03-2023 Wound Culture rt calf, KAERN, 07-01-23, 15:40 Heavy growth of Staphylococcus aureus [...] <=0.5/9.5 Verified Vanc S 2 Verified Normal [facility] Comment on above: Performed By: #### [id number] ####[facility] (DEFAULT)[address] [place] [address] Ambulatory Patient Summaryon 06-26-2023 Ambulatory Patient Summary [address], [address] - Visit Summary For YRN RICARDO Age: 63 years Sex: MALE : 1960 Address: [address] [place], [address] Home: Work: -- Primary Care Provider: KAREN ZAPATA, LESLY To Race: White Ethnicity: Not or Language: [place] Health Plan: 1?[facility], 2?[facility], 3?[facility] Reason for Visit: Three month follow up for med refills Prescription Information: If you have been given a prescription for narcotics, seek immediate medical attention if you have any difficulty breathing or any sudden status changes such as confusion and sleepiness. If you or anyone you know is experiencing suicidal thoughts, mental health, alcohol and/or drug addiction problems; contact the [facility] Pending Sale To [facility] 26/11 Crisis Hotline -Text 4HKFM zh [phone]. Follow-Up Information With: Address: When: KAREN ZAPATA, LESLY To [facility] [address] [place] [address]/ [address] [place], [place] [id number] In 3 months Future Appointments [facility] Appt. Date: 09/25/2023 1:00 PM Scheduled Provider: Lesly Melchor MD [address] [place] [address] [place], [address] Future Orders No future orders Additional Goals [...] Dosin.000 kg Body Mass Index: 50.14 kg/m2 [place] Body Weight Calculated: 84.047 kg BSA Measured: [...] a day (scheduled), 0 refills authorized Instructions: ANA MARÍA cetirizine [...] TABLET BY MOUTH ONCE DAILY nebulizer machine ([facility]) 0 refills authorized Instructions: one [...] is caused (more content not included)... Normal [facility] Patient Handouton 06-26-2023 Patient Handout Infectious [...] and keep track of them. ? Take ifnm-bwq-ktjdavr and prescription medicines only as told by your health care provider. ? If you were prescribed an antibiotic medicine, take or apply it as told by your health care provider. Do not stop (more content not included)... Normal [facility] Outside Recordson 05-15-2023 Outside Records [id number] #1.00OTGTIFF [facility] Device InterrogationOrdered By: Rosalind Murrieta on 05-14-2023 [facility] Radiology Study observation (narrative) [facility] Ambulatory Patient Summaryon 03-26-2023 Ambulatory Patient Summary [address] [place], [address] - Visit Summary For YRN RICARDO Age: 62 years Sex: MALE : 1960 Address: [address] [place], [address] Home: Work: -- Primary Care Provider: LESLY MELCHOR MD Race: White Ethnicity: Not or Language: [place] Health Plan: 1?[facility], 2?[facility], 3?[facility] Reason for Visit: Three month follow up for weight loss and back pain Prescription Information: If you have been given a prescription for narcotics, seek immediate medical attention if you have any difficulty breathing or any sudden status changes such as confusion and sleepiness. If you or anyone you know is experiencing suicidal thoughts, mental health, alcohol and/or drug addiction problems; contact the [facility] 26/11 Crisis Hotline -text 4HOPE to [phone]. Follow-Up Information With: Address: When: KAREN ZAPATA, LESLY To [facility] [address] [place] [address]/ [address] [place], [place] [id number] In 3 months Future Appointments [facility] Appt. Date: 06/26/2023 9:30 AM Scheduled Provider: Lesly Melchor MD [address] [place] [address] [place], [address] Future Orders No future orders Additional Goals [...] 3 m2 Body Mass Index: 47.09 kg/m2 [place] Body Weight Calculated: 84.047 kg BSA Measured: [...] times a day, 0 refills authorized Instructions: MAGRU cetirizine 10 [...] day anxiety, 0 refills authorized nebulizer machine ([facility]) 0 refills authorized Instructions: one [...] BMI? Body mas (more content not included)... [facility] Patient Handouton 03-26-2023 Patient Handout Nutrition BMI [...] numbers. This can be done either in [place] or metric measurements. Note that charts and online BMI calculators are available to help you find your BMI quickly and easily without having to do these calculations yourself. To calculate your BMI in [place] measurements: 1. Measure your weight in [...] for Disease Control and Prevention: www.cdc.gov ? [place] Heart Association: www.heart.org ? National Heart, Lung, and Blood [place]: www.nhlbi.nih.gov Summary ? Body mass index (BMI) is a number that is calculated from a person's weight and height. ? BMI may help estimate how much of a person's weight is composed of fat. BMI can help identify those who may be at higher risk for certain medical problems. ? BMI can be measured using [place] measurements or metric measurements. ? BMI charts are used to identify whether you are underweight, normal weight, overweight, or obese. This information is not intended to replace advice given to you by your health care provider. Make sure you discuss any questions you have with your health care provider. Document Revised: 01/13/2020 Document Reviewed: 11/20/2019 [employer] Patient Education ? 2022 Going. [facility] Outside Recordson 03-25-2023 Outside Records [id number] #1.00OTGTIFF [facility] Outside Recordson 03-18-2023 Outside Records [id number] #1.00OTGTIFF [facility] Outside Recordson 03-13-2023 Outside Records [id number] #1.00OTGTIFF [facility] Outside Recordson 02-11-2023 Outside Records [id number]# [facility]22 Ambulatory Patient Summary [address], [address] - Visit Summary For YRN RICARDO Age: 62 years Sex: MALE : 1960 Address: [address] [place], [address] Home: Work: -- Primary Care Provider: LESLY MELCHOR MD Race: White Ethnicity: Not or Language: [place] Health Plan: 1?[facility], 2?[facility], 3?[facility] Reason for Visit: 3 mon f/u Prescription Information: If you have been given a prescription for narcotics, seek immediate medical attention if you have any difficulty breathing or any sudden status changes such as confusion and sleepiness. If you or anyone you know is experiencing suicidal thoughts, mental health, alcohol and/or drug addiction problems; contact the [facility] 26/11 Crisis Hotline -Text 4HOPE to [phone]. Follow-Up Information With: Address: When: KAREN ZAPATA, LESLY To [facility] [address] [place] [address]/ [address] [place] [address] In 3 months Future Appointments [facility] Appt. Date: 03/26/2023 10:00 AM Scheduled Provider: Lesly Melchor MD [address] [place] [address] [place], [address] Future Orders No future orders Additional Goals [...] 371.897 lb Body Mass Index: 46.73 kg/m2 [place] Body Weight Calculated: 84.047 kg BSA Measured: [...] times a day, 0 refills authorized Instructions: MAGRU cetirizine 10 mg oral tablet (cetirizine) Instructions: [...] day anxiety, 0 refills authorized nebulizer machine ([facility] Rx Supply) 0 refills authorized Instructions: one machine to use with nebules [facility] ([facility] Prescription) 0 refills authorized Instructions: Wound clinic. [...] to displa (more content not included)... Normal [facility] Patient Handouton 12-21-2022 Patient Handout Orthopedics [...] walking or exercising. ? An inability to volcanologist items, twist your hand(s), or control the [...] aerobics, that increase your heart rate. ? Lfqoz-id-imjxok activities. These help your joints move more [...] area above the (more content not included)... Normal [facility] Coding Summaryon 12-18-2022 Coding Summary HTMLBase 64 NejinuptKCv7sNy+PGhl YWQ+YC9JUXAkG65zbESl rB3rC0TWLAfQMhepXWND RKrHNnCcghEbCV8ksXDz ZXJu IC8+MM9rKIDeJwildGLf m8T3nPK1J00ojm8rZPgp qBW1MUHnIrLlmtmcl4sj eLx0WCrsVijoYjXu OOWyiY83AAR2wG64Hk80 xAIngYRyc4chnWz1QwYo AKHxCEP9vQbeQTfhl7Xp OQEsW34hgBUaa7J5 IGNvbGxhcHNlOyBlbXB0 gW6pRNfrbmolj7qjazah Nsw5zm44nLQfr5G6xGZ8 G1LhorX9MWSgyDZm YiqaxEPEvK6dmnmme1im ltwvTbQvXDNnADr2KWa5 TBNddHstWwMpRA96GMP3 TFLeboNqD8RjDMOf sJtuXdZ4m7I7Qj8HR5PJ AfzwL0VLALAXPWwloMB+ RA15cp49T5OpIkmeGzi2 QGRuOJL4pZD6dE7a KQZnTTsfu0E2wWW2I4Rw nyTpan5ao9osEZGdJFkq G24kwRPeq7Y2EVXazGN9 ZBEjlRruRgAeiX97 Oyc+IWKyhHdgl3EbQjww s2yra4uugUq8CcuaAKLi mdUrzRkcJUJ3w4DdRq7n RDXbaQO9gKF6vT4s UbMeFyX7RTakK527YkBz gHGoVseiV87iE9FsvAL+ SWHwAux0HUWlkNylDT5a C3ZmHWXyqfymbSFb qUypKI1gJWNjjfhhOURi rV1qMZUcZ3n2NuEdOiW6 DZnxO0HxRWEfeqkyYi50 tV5cFkXcTjV6PVfj G9ZngaS2VXNjsIXmKVrm MJF7Q13dk8Q1CAOlXDDa EPU8zCE6aT6loGjivlpk bGVmdDsgdmVydGlj MNxlLGtiG021YORpmIfy PkNvZGluZyBEYXRlOiAg MDgvMTUvMjAyMzwvdGQ+ HPAqZOW0lEodACLy vIOwHCkoNx8aoCkbpIoj ON3qDGLicpldBBGmzA1l HTXoaERkzGfeVO8zLAMp deyuw534OuWqNER9 VTHtsRJdR5MkkC8xNvJq WUBoHWCtF7XiyZVhLTra O870TWmbClK0KBOukmNm K0PaSUWsmVqjHtK5 k0O0Go9Ik6VxwjkhZ4Vw vKAgPqIdHqpsWNz5E9No PjwvdHI+XS60OYZqIS88 TOn8XQA5mPmgCXop GDHhE8NtfH8tAlFeVCRq ZGRkOyc+PHRhYmxlIHdp ZHRoPScxMDAlJyBzdHls VF7rGi1qCYEpSOIh eNttoRSoRsTwk6ayWWKf UYxdTL4dxJeuC2ErhTU0 ZHGjn2x8Pp14V75bD3Gt dXA+UEAgfSI8wPP6 iH3eLgHdCfW9MQxqE368 UgPvgANxIkcgm9fql2rn mOy1VmV4BBNvcnZcjUln CCX1t1WtZs98A04p IHdpZHRoPSIxNSUiIHZh iGnfdu7uuO7gEu3+PGNv sSY6sAV6pF7eBvSxYjV5 LHleN755ZxSajHMh Ytqtx2nrr2jhoIy6BfLl ADYjfkAvdItfLOW6f6Xb Mb78O4WzxQmkm8YqCzt5 qf88mATgn4X1jWD5 O2GfVPAytgblsCBofViy IS2pNOXaorcjBYNmtY4n YEPxQ8i4VqWnFzC9TMnw W3LnitK8LSOpvFMh DASrzQNRrZ1jakczj2or kfpzZgTcNTTnBPw7LPh4 JOXkiVoiFgVkWOP5CgK8 HLP6eHRhdJ0ukAxs pwtxdV4bYon+FFV2fIIm rOOFZP3vAbrhnLA+PHRk CHX4iFihUJxsVZVolC7p MDQsI3g0JjEuAcG7 PZgbF6VluhU3LEWrzVIw XIMpxWSZwH5xzbang2jk htelDfMbPNNzPDb1SPb7 LWFsaWduOiBsZWZ0 XiW6XBX7fCNgwP4ngQxw ztdqsV4cYbn+QmlydGgg DUG0HLd1U1KdWbs4LMZr jBkpQN5byOClYZbl Ze6apKzbrWmrAB0rZBRk rcmwr896LbXow5vaJHNo xLJnLUnrXJZ9C40if5G8 GRPxFRQzYMN6sUS7 hK0dsGkdgwdqgUGtlFas dbLedLtcWJrxVVwiE728 CVYvbMqtEnZqNLj2C2Ms Hya8IYZdjYioYU3m qOEaQLefRi3noOoqmCkj FX8oNORxrofyz880QtKx u0bgWSZjjPAuLXznPGB2 A38va9U8IDNmRLZn XHH6kUG3nR4rqAqwdqtd bGVmdDsgdmVydGljYWwt SRabP435TTLcsMbjDoUn oQe9J9LaTis2XUAh fLjdDA1reKVpUMnvHq4i oIpzuDpjYN7pMNBfkamr r846AcKok7pjBGVojZXl QQehUQY9D65rs5Y7 IMPzXNHiINX6qWQ2kJ3y bGlnbjogbGVmdDsgdmVy nAwmWRkcWUnhX944VGYu cDsnPlBhdGllbnQg CTqtJZx6P2VcDxmjwKW+ HG99MSDrOA91tDYshMIm v2aegYq1MvPdGBVfGNJ7 tPxfHQpet3IrQBHs B32qnLFqc6J8CWSdyTrt uLYnUmIgyQH9uC0qADwu knzgg2avqmwjMpmzr5sf tv95yN28A14kKUfe ZHRoPSIzMCUiIHZhbGln jv3tkZ8jCi2+PGNvbCB3 gDS4iV7vJPQiNhH3BYny Z343BwKaePIoQlwa d8juu1bfrGq8QiZ2HMAo gdSpsNxnJPA0q4HhWf71 U74wLKbaTXOcHPKsCPCx HBNfwLvzzw5bmO4v Ii8+YEOuoNL2lTS7bG3i HqClSuP3MTauA741LrRe fNWjSwusT31rH5JzkOY+ JSEyVjo8NQUcuPqk FS0nwCWkLMwzDw7aLEO4 XkUxCsWzKSpsH4AlZRLb zbnhgdxawTU5BYXjVRCc iJ51Wj7bwOwaCAXa qPYTpK5wjvwvh7defytp QeZcSTHjTQy5TYg2MZPp gCyaYgKnPTO6DeB0HWC9 mJAzhL4btBktncte jV9oN3OwRZHiszqeQm09 aV7uZmVtRyZ5IUwfUyy+ V3YJTwyiII5WL4bNMFwk SzwvdGQ+PHRkIHN0 aSvnYZbxJWHfzM8yANZj Q2a6XcEtHoZ6SPqlO6Hc COAvlburOs44cJ1mLiIx ZaH0RArkY0CidcV6 BCJeeAZjZQwkVUB8T17h u0X3LYQiVSFbWIX9qGK9 vB2tqOjklzcezVQhhPhf dmVydGljYWwtYWxp W395LFEwoAgsEqMlVkT8 YvD5MwF1L1IaXbv7WSFy dLprHE5xxJDqDNouIv2m xQnzxCchPC4nJUNj ldfsNTEbmP4pLFUpbZHs xQeuRE0bHQJnzewdt466 ToBdEMR2ZQAynTQxM8Bc pN5vSuNoKGEyNUXl X8XhxVIkEPkaF994VFur IhY2RUIlmbUuO2LwUHHa gJalFyH1p3C3Lo59ZFCR ZWFyczwvdGQ+PHRk FUP2wKqlCBvuIEOctV9a ZQMyD0x5MxItFkI1JTas E5BkITKrfrwtXg23lS6b HwUzWwL2FPyzL0Mk buQ7CURkdQXrDDhzKVN5 X72xe1S3LCKbKTIgMKM5 pHI6fB4bqMftmgyfxOMn dDsgdmVydGljYWwt ZFmiH645LRLleVqkUu7W PHT0X6KdUiz5NFXspHcj FI9hrBQdNPyeTv5wdAom iRalSY1lECMbomkg HFNbhF1pLAGjeALirAnx IB7bOTZbdxdpy803AdHn VEN6EGEgmWNpS3AvaV7z NuMcGAItJFIbX7Xg sWHwNKqgR702QInmEqU5 ZQHsppWeB6FqTVSdnKfh KvT1o0L7Yt3TZHcjuFA+ PE72fg71F5EtQxjd Loz6IPUiXUY2zAF7kR8h LKCmLCxpq1W7hRH8Z5Bd brUutw7hf2inMOOvNSgk P79klNNjf1T1JUDd nSX1IBUjgRapLsGqbV07 Oyc+VJErvKsro3OtXaej k5qov5nogFn8XeDgXKLb rgXvfWesLNR7r1Os Ya41K35cBKkpPNPpBYAd ILPcVMDtuEingv6umJ0m Ii8+WSLmwOM4uOL1rZ9t QcInVaZ1LRzzP227 VrKtnGYjIpcos7qmx2ad vGy9CoCoIUBgvhHukHfa IJV2j0ReCh45C8IgzDof e4OkVss0ih93fVBq x6S4mKG5E2LhIWQikemt fYNvbUxzIA4rQGLqwyzh NHTqvY8sYHYfG1y8DtSr SoK2CPjeY9OzbkC4 TRKpsGYjZGClaPVKmA1v cashv7tlqcylHlQuNKIp OCt2ASv3WUVloHgkUbRl QDJ3GoG2KEX8cKDr qG1szSjcczaoaX8uZfq+ QHg8x5ejqQOyPD7jjEO4 ZW83FY23cUNfi1Z8nSO1 S0WqRPJzypzfwsdh aPK1TTWmJTSveY60Sl7j uFwpUh8tCAXbSCI4QZMl xMShY0LnrB8lIeNvSMJl HIIgA4EvsVMzNHbw M052URhxSrB7NHLyeuMe B8GnJYNnlPezJqU6n2J2 Tr1XMJ64TY45FP51iHXx z4L3kJI0D0HtJTJj xjcrugnwsST3OJXqRFIl wH41Ih0jlMghHm2mHKVn HXE2FNYidUQhR2VfjA4u IeJxEEZaJAIaX4Vy jUAbTXiqI989EHagRwH6 KGPpplVaZ2PnEKRajGbc EgI4f8S1Yl2QYs55AD57 FB18oEXzd0P0jYT7 Y4XnCSZdzjisblcgmND2 YAYjXFIenT79Yl6ijXwg Co4gPGXtGTW4ZTRlxOXa S2JmyR8oGrGtRNFn IOMvP9EusSYcVOzsR123 GGsbIlK1OGTuuvJyC0Gg HNHysUkgPyW6l9P6Vq7N XAtynyn1N1TiFxms dHI+OE32WHCpDI53yCBe vJTfr5wblTd0BlOmNJCf OBW8iQnxAXyfq5SpPVFw M97qxCWxm5L3ANYr bGx (more content not included)... Normal [facility] 12-13-2022 eGFR Non AA >60 Invalid Interpretation Code [facility] Comment on above: Performed By: #### 1 [id number], [id number], [id number] ####[facility] (DEFAULT)[address] [place] [address] 97345 eGFR AA >60 Invalid Interpretation Code [facility] Comment on above: Performed By: #### 1 [id number], [id number], [id number] ####[facility] (DEFAULT)[address] [place] [address] 13282 Albumin [Mass/Vol] 3.9 g/dL Normal 3.5-5.0 [facility] Comment on above: Performed By: #### 1 [id number], [id number], [id number] ####[facility] (DEFAULT)[address] [place] [address] 88057 Albumin/Globulin [Mass ratio] 1.0 {ratio} Low 1.4-2.6 [facility] Comment on above: Performed By: #### 1 [id number], [id number], [id number] ####[facility] (DEFAULT)[address] [place] [address] 60214 Alk Phos 84 IU/L Normal 32-91 [facility] Comment on above: Performed By: #### 1 [id number], [id number], [id number] ####[facility] (DEFAULT)[address] [place] [address] 71905 ALT [Catalytic activity/Vol] 22.0 U/L Normal 17.0-63.0 [facility] Comment on above: Performed By: #### 1 [id number], [id number], [id number] ####[facility] (DEFAULT)[address] [place] [address] 39175 Anion gap [Moles/Vol] 9.9 mmol/L Normal 5.0-19.0 [facility] Comment on above: Performed By: #### 1 [id number], [id number], [id number] ####[facility] (DEFAULT)[address] [place] [address] 84175 AST [Catalytic activity/Vol] 31 U/L Normal 15-41 [facility] Comment on above: Performed By: #### 1 [id number], [id number], [id number] ####[facility] (DEFAULT)[address] [place] [address] 01958 Bili Total 0.5 mg/dL Normal 0.3-1.2 [facility] Comment on above: Performed By: #### 1 [id number], [id number], [id number] ####[facility] (DEFAULT)[address] [place] [address] 13764 Calcium [Mass/Vol] 8.6 mg/dL Low 8.9-10.3 [facility] Comment on above: Performed By: #### 1 [id number], [id number], [id number] ####[facility] (DEFAULT)[address] [place] [address] 66498 Chloride [Moles/Vol] 104 mmol/L Normal 101-111 [facility] Comment on above: Performed By: #### 1 [id number], [id number], [id number] ####[facility] (DEFAULT)[address] [place] [address] 72714 CO2 [Moles/Vol] 28 mmol/L Normal 21-32 [facility] Comment on above: Performed By: #### 1 [id number], [id number], [id number] ####[facility] (DEFAULT)[address] [place] [address] 60670 Creatinine [Mass/Vol] 1.07 mg/dL Normal 0.90-1.30 [facility] Comment on above: Performed By: #### 1 [id number], [id number], [id number] ####[facility] (DEFAULT)[address] [place] [address] 31334 Globulin (S) [Mass/Vol] 3.9 g/dL Normal 1.5-4.3 [facility] Comment on above: Performed By: #### 1 [id number], [id number], [id number] ####[facility] (DEFAULT)[address] [place] [address] 74687 Glucose [Mass/Vol] 92.0 mg/dL Normal 74.0-118.0 [facility] Comment on above: Performed By: #### 1 [id number], [id number], [id number] ####[facility] (DEFAULT)[address] [place] [address] 85719 Osmolality 276 mOsm/L Invalid Interpretation Code [facility] Comment on above: Performed By: #### 1 [id number], [id number], [id number] ####[facility] (DEFAULT)[address] [place] [address] 39902 Potassium [Moles/Vol] 3.9 mmol/L Normal 3.6-5.1 [facility] Comment on above: Performed By: #### 1 [id number], [id number], [id number] ####[facility] (DEFAULT)[address] [place] [address] Protein [Mass/Vol] 7.8 g/dL Normal 6.5-8.1 [facility] Comment on above: Performed By: #### 1 [id number], [id number], [id number] ####[facility] (DEFAULT)[address] [place] [address] 41208 Sodium [Moles/Vol] 138.0 mmol/L Normal 136.0-144.0 [facility] Comment on above: Performed By: #### 1 [id number], [id number], [id number] ####[facility] (DEFAULT)[address] [place] [address] 74242 Urea nitrogen [Mass/Vol] 16 mg/dL Normal 8-26 [facility] Comment on above: Performed By: #### 1 [id number], [id number], [id number] ####[facility] (DEFAULT)[address] [place] [address] Urea nitrogen/Creatinine [Mass ratio] 14.9 mg/mg Normal 4.6-16.2 [facility] Comment on above: Performed By: #### 1 [id number], [id number], [id number] ####[facility] (DEFAULT)[address] [place] [address] Hemogram Standardon 12-14-19 23 Erythrocyte distribution width (RBC) [Ratio] 14.2 % Normal 11.5-15.0 [facility] Comment on above: Performed By: #### 1 [id number], [id number], [id number] ####[facility] (DEFAULT)[address] [place] [address] Hematocrit (Bld) [Volume fraction] 41.9 % Normal 34.8-51.9 [facility] Comment on above: Performed By: #### 1 [id number], [id number], [id number] ####[facility] (DEFAULT)[address] [place] [address] 25095 Hemoglobin (Bld) [Mass/Vol] 14.2 g/dL Normal 11.8-17.7 [facility] Comment on above: Performed By: #### 1 [id number], [id number], [id number] ####[facility] (DEFAULT)[address] [place] [address] 33441 MCH (RBC) [Entitic mass] 32 pg Normal 24-34 [facility] Comment on above: Performed By: #### 1 [id number], [id number], [id number] ####[facility] (DEFAULT)[address] [place] [address] MCHC (RBC) [Mass/Vol] 34 g/dL Normal 26-37 [facility] Comment on above: Performed By: #### 1 [id number], [id number], [id number] ####[facility] (DEFAULT)[address] [place] [address] MCV (RBC) [Entitic vol] 93 fL Normal 81-100 [facility] Comment on above: Performed By: #### 1 [id number], [id number], [id number] ####[facility] (DEFAULT)[address] [place] [address] Platelet 122 x10 Low 138-427 [facility] Comment on above: Performed By: #### 1 [id number], [id number], [id number] ####[facility] (DEFAULT)[address] [place] [address] Platelet mean volume (Bld) [Entitic vol] 8.0 fL Normal 6.3-10.2 [facility] Comment on above: Performed By: #### 1 [id number], [id number], [id number] ####[facility] [place] (DEFAULT)[address] [place] [address] RBC 4.50 x10 Normal 3.70-5.30 [facility] Comment on above: Performed By: #### 1 [id number], [id number], [id number] ####[facility] [place] (DEFAULT)[address] [place] [address]2468 WBC 5.5 x10 Normal 3.5-10.5 [facility] Comment on above: Performed By: #### 1 [id number], [id number], [id number] ####[facility] [place] (DEFAULT)[address] [place] [address] 97674 Lipid Panel Standardon 12-13 Cholesterol [Mass/Vol] 158.0 mg/dL Normal 66.0-200.0 [facility] Comment on above: Performed By: #### 1 [id number], [id number], [id number] ####[facility] [place] (DEFAULT)[address] [place] [address] 56875 Cholesterol in HDL [Mass/Vol] 48 mg/dL Normal 40-71 [facility] Comment on above: Performed By: #### 1 [id number], [id number], [id number] ####[facility] (DEFAULT)[address] [place] [address]6614 Cholesterol in LDL [Mass/Vol] 98 mg/dL Normal 1-100 [facility] Comment on above: Performed By: #### 1 [id number], [id number], [id number] ####[facility] [place] (DEFAULT)[address] [place] [address]505 Cholesterol.total/Choles terol in HDL [Mass ratio] 3.3 {ratio} Normal 0.0-4.5 [facility] Comment on above: Performed By: #### 1 [id number], [id number], [id number] ####[facility] [place] (DEFAULT)[address] [place] [address] 19454 Triglyceride [Mass/Vol] 60.0 mg/dL Normal 0.0-150.0 [facility] Comment on above: Performed By: #### 1 [id number], [id number], [id number] ####[facility] [place] (DEFAULT)[address] [place] [address] 19635 VLDL. 12 mg/dL Normal 5-40 [facility] Comment on above: Performed By: #### 1 [id number], [id number], [id number] ####[facility] [place] (DEFAULT)[address] [place] [address] Provider Orderson 12-13-2022 Provider Orders [id number] 0#1.00OTGTIFF Normal [facility] POC Glucose FingerstickOrder ed By: Serafin Shearer on 06-02-2019 Glucose [Mass/Vol] 70 mg/dL Low 75 - 110 mg/dL [facility] Phone: Interpretation and review of laboratory results Abnormal [facility] Phone: Glucose [Mass/Vol] 74 mg/dL Low 75 - 110 mg/dL [facility] Phone: Interpretation and review of laboratory results Abnormal [facility] Phone: Glucose [Mass/Vol] 64 mg/dL Low 75 - 110 mg/dL [facility] Phone: Interpretation and review of laboratory results Abnormal [facility] Phone: Surgical PathologyOrdered By : Serafin Shearer on 06-02-2019 Surgical Pathology Report [id number] [facility] ANATOMIC PATHOLOGY [address] [place] [phone] SURGICAL PATHOLOGY CONSULTATION Patient Name: YRN RICARDO [facility] Rec: [id number] Path Number: [id number] Collected: 06/01/2019 Received: 06/01/2019 Reported: 06/02/2019 10:13 [...] with no areas of granularity or masses. 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 [facility] Phone: POC Glucose FingerstickOrder ed By: Serafin Cmjunaid on 06-01-2019 Glucose [Mass/Vol] 91 mg/dL 75 - 110 mg/dL [facility] Phone: Glucose [Mass/Vol] 96 mg/dL 75 - 110 mg/dL [facility] Phone: Surgical Pathologyon 020 Surgical Pathology (NOTE) [id number] [facility] ANATOMIC PATHOLOGY [address] [place] [phone] SURGICAL PATHOLOGY CONSULTATION Patient Name: YRN RICARDO [facility] Rec: [id number] Path Number: [id number] Collected: 06/01/2019 Received: 06/01/2019 Reported: 06/02/2019 10:13 [...] with no areas of granularity or masses. 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 Normal [facility] Comment on above: Performed By: #### P PPVS #### [employer] [address] [place] [phone] Crm Marketing Manager: Karl Klein MD Nicotineon 05-23-2019 6-OS-Wxtajsfa 3 ng/mL Normal [facility] Comment on above: Performed By: #### C BC, PT, BMP #### [employer] [address] [place] [address] [phone] Crm Marketing Manager: Karl Klein MD #### ANICOT #### [employer] [address] [place] [phone] Crm Marketing Manager: Cameron Calderon MD Cotinine 5 ng/mL Normal [facility] Comment on above: Result Comment: (NOT E) Cotinine is the major metabolite of nicotine and is a biomarker of passive exposure when present at low concentrations. This result may reflect passive exposure to a nicotine-containing product. The half-life of cotinine is approximately 16 hours. Cotinine is metabolized to 3-VL-ofoovoyp, which may persist for weeks after cessation from long-term or heavy use of nicotine products. Performed By: #### C BC, PT, BMP #### [address] [phone] Crm Marketing Manager: Karl Klein MD #### RAVIT #### Fetch MD [address] [address] Crm Marketing Manager: Cameron Calderon MD Nicotine <2 Normal [facility] Comment on above: Result Comment: (NOT [...] positive. Test developed and characteristics determined by [facility]. See Compliance Statement B: [employer] Performed by [employer], [address] [place] [id number] [email or web address], Cameron Calderon MD, Lab. Director Performed By: #### C BC, PT, BMP #### [facility] [address] [place] [address] Crm Marketing Manager: Karl Klein MD #### ANJARETT #### [facility] [address] [place] [address] Crm Marketing Manager: Cameron Calderon MD Basic Metabolic Profon 05-19 (cont.) Normal [facility] Comment on above: Result Comment: Aver age GFR for 50-59 years old: 93 mL/min/1.73sq m Chronic Kidney Disease: <60 mL/min/1.73sq m Kidney failure: <15 mL/min/1.73sq m eGFR calculated using average adult body mass. Additional eGFR calculator available at: http://www.BIO-NEMS/multiple_crcl_2012.htm Performed By: #### C SYD PT, BMP #### [facility] [address] [place] [address] Crm Marketing Manager: Karl Klein MD #### ANJARETT #### [facility] [address] [place] [phone] Crm Marketing Manager: Cameron Calderon MD Anion gap [Moles/Vol] 14 mmol/L Normal 9-17 [facility] Comment on above: Performed By: #### Kenrick VELARDE PT, BMP #### [facility] [address] [place] [address] Crm Marketing Manager: Karl Klein MD #### ANICOT #### [facility] [address] [place] [address] Crm Marketing Manager: Cameron Calderon MD Calcium [Mass/Vol] 9.7 mg/dL Normal 8.6-10.4 [facility] Comment on above: Performed By: #### C BC, PT, BMP #### [facility] [address] [place] [address] Crm Marketing Manager: Karl Klein MD #### ANICOT #### [facility] [address] [place] [address] Crm Marketing Manager: Cameron Calderon MD Chloride [Moles/Vol] 98 mmol/L Normal 98-107 [facility] Comment on above: Performed By: #### C BC, PT, BMP #### [address] [address] Crm Marketing Manager: Karl Klein MD #### ANICOT #### [facility] [address] [place] [address] Crm Marketing Manager: Cameron Calderon MD CO2 [Moles/Vol] 25 mmol/L Normal 20-31 [facility] Comment on above: Performed By: #### C BC, PT, BMP #### [address] [address] Crm Marketing Manager: Karl Klein MD #### ANICOT #### [facility] [address] [place], [place] [id number] Crm Marketing Manager: Cameron Calderon MD Creatinine [Mass/Vol] 1.28 mg/dL High 0.70-1.20 [facility] Comment on above: Performed By: #### C BC, PT, BMP #### [address] [address] Crm Marketing Manager: Karl Klein MD #### ANICOT #### [facility] [address] [place], [place] [id number] Crm Marketing Manager: Cameron Calderon MD GFR, Amer >60 Normal >60 [facility] Comment on above: Performed By: #### C BC, PT, BMP #### [facility] [address] [place] [address] Crm Marketing Manager: Karl Klein MD #### ANICOT #### [facility] [address] [place], [place] [id number] Crm Marketing Manager: Cameron Calderon MD GFR,non Amer 58 mL/min Low >60 [facility] Comment on above: Performed By: #### Kenrick VELARDE PT, BMP #### [facility] [address] [place] [address] Crm Marketing Manager: Karl Klein MD #### ANICOT #### [facility] [address] [place], [place] [id number] Crm Marketing Manager: Cameron Calderon MD Glucose [Mass/Vol] 80 mg/dL Normal 70-99 [facility] Comment on above: Performed By: #### Kenrick VELARDE PT, BMP #### [address] [address] Crm Marketing Manager: Karl Klein MD #### ANICOT #### [facility] [address] [place] [address] [phone] Crm Marketing Manager: Cameron Calderon MD Potassium [Moles/Vol] 4.6 mmol/L Normal 3.7-5.3 [facility] Comment on above: Performed By: #### Kenrick VELARDE PT, BMP #### [address] [address] Crm Marketing Manager: Karl Klein MD #### ANICOT #### [facility] [address] [place], [place] [id number] Crm Marketing Manager: Cameron Calderon MD Sodium [Moles/Vol] 137 mmol/L Normal 135-144 [facility] Comment on above: Performed By: #### Kenrick VELARDE PT, BMP #### [address] [address] Crm Marketing Manager: Karl Klein MD #### ANICOT #### [facility] [address] [place], [place] [id number] Crm Marketing Manager: Cameron Calderon MD Urea nitrogen [Mass/Vol] 23 mg/dL High 6-20 [facility] Comment on above: Performed By: #### C BC, PT, BMP #### [facility] [address] [place] [address] Crm Marketing Manager: Karl Klein MD #### ANICOT #### [facility] [address] [place] [address] Crm Marketing Manager: Cameron Calderon MD BUN/CRE Ratio NOT REPORTED Normal - [facility] Comment on above: Performed By: #### C BC, PT, BMP #### [facility] [place] [address] Crm Marketing Manager: Karl Klein MD #### ANICOT #### [facility] [address] [place], [place] [id number] Crm Marketing Manager: Cameron Calderon MD Staging: NOT REPORTED Normal [facility] Comment on above: Performed By: #### C BC, PT, BMP #### [facility] [address] [place] [address] Crm Marketing Manager: Karl Klein MD #### ANICOT #### [facility] [address] [place] [address] Crm Marketing Manager: Cameron Calderon MD CBCon 05-19-2019 Erythrocyte distribution width (RBC) [Ratio] 16.0 % High 11.8-14.4 [facility] Comment on above: Performed By: #### C BC, PT, BMP #### [facility] [place] [address] Crm Marketing Manager: Karl Klein MD #### ANICOT #### [facility] [address] [place] [address] Crm Marketing Manager: Cameron Calderon MD Hematocrit (Bld) [Volume fraction] 42.0 % Normal 40.7-50.3 [facility] Comment on above: Performed By: #### C BC, PT, BMP #### [address] [id number] Crm Marketing Manager: Karl Klein MD #### ANICOT #### [facility] [address] [place], [place] [id number] Crm Marketing Manager: Cameron aClderon MD Hemoglobin (Bld) [Mass/Vol] 13.2 g/dL Normal 13.0-17.0 [facility] Comment on above: Performed By: #### C BC, PT, BMP #### [address] [phone] Crm Marketing Manager: Karl Klein MD #### ANICOT #### [facility] [address] [place], [place] [id number] Crm Marketing Manager: Cameron Calderon MD MCH (RBC) [Entitic mass] 28.4 pg Normal 25.2-33.5 [facility] Comment on above: Performed By: #### C BC, PT, BMP #### [address] [phone] Crm Marketing Manager: Karl Klein MD #### ANICOT #### [facility] [address] [place], [place] [id number] Crm Marketing Manager: Cameron Calderon MD MCHC (RBC) [Mass/Vol] 31.4 g/dL Normal 28.4-34.8 [facility] Comment on above: Performed By: #### C BC, PT, BMP #### [address] [phone] Crm Marketing Manager: Karl Klein MD #### ANICOT #### [facility] [address] [place], [place] [id number] Crm Marketing Manager: Cameron Calderon MD MCV (RBC) [Entitic vol] 90.3 fL Normal 82.6-102.9 [facility] Comment on above: Performed By: #### C BC, PT, BMP #### [address] [address] Crm Marketing Manager: Karl Klein MD #### ANICOT #### [facility] [address] [place] [address] Crm Marketing Manager: Cameron Calderon MD NRBC Automated 0.0 per 100 WBC Normal 0.0 [facility] Comment on above: Performed By: #### C BC, PT, BMP #### [address] [address] Crm Marketing Manager: Karl Klein MD #### ANICOT #### [facility] [address] [place] [address] Crm Marketing Manager: Cameron Calderon MD Platelet mean volume (Bld) [Entitic vol] 9.8 fL Normal 8.1-13.5 [facility] Comment on above: Performed By: #### C BC, PT, BMP #### [address] [address] Crm Marketing Manager: Karl Klein MD #### ANICOT #### [facility] [address] [place] [address] Crm Marketing Manager: Cameron Calderon MD Platelets (Bld) [#/Vol] 199 10*3/uL Normal 138-453 [facility] Comment on above: Performed By: #### C BC, PT, BMP #### [address] [address] Crm Marketing Manager: Karl Klein MD #### ANICOT #### [facility] [address] [place] [address] Crm Marketing Manager: Cameron Calderon MD RBC (Bld) [#/Vol] 4.65 10*6/uL Normal 4.21-5.77 [facility] Comment on above: Performed By: #### C BC, PT, BMP #### [address] [address] Crm Marketing Manager: Karl Klein MD #### ANICOT #### [facility] [address] [place] [address] Crm Marketing Manager: Cameron Calderon MD WBC (Bld) [#/Vol] 6.7 10*3/uL Normal 3.5-11.3 [facility] Comment on above: Performed By: #### C BC, PT, BMP #### [address] [address] Crm Marketing Manager: Karl Klein MD #### ANICOT #### [facility] [address] [place], [place] [id number] Crm Marketing Manager: Cameron Calderon MD PTon 05-19-2019 INR Coag (PPP) [Relative time] 1.1 {INR} Normal [facility] Comment on above: Result Comment: Therapeutic Range: Moderate Anticoagulant Intensity: INR = 2.0-3.0 High Anticoagulant Intensity: INR = 2.5-3.5 Performed By: #### C BC, PT, BMP #### [address] [address] Crm Marketing Manager: Karl Klein MD #### ANICOT #### [facility] [address] [place] [address] Crm Marketing Manager: Cameron Calderon MD PT Coag (PPP) [Time] 12.0 s Normal 9.0-12.0 [facility] Comment on above: Performed By: #### C BC, PT, BMP #### [address] [address] Crm Marketing Manager: Karl Klein MD #### ANICOT #### [facility] [address] [place] [address] Crm Marketing Manager: Cameron Calderon MD XR CHEST (2 VW)on [...] Shawanda Aragon MD 05/19/19 Final result Normal [facility] XR CHEST STANDARD (2 VW)Orde red By: Serafin Shearer on 05-19-2019 Negative chest. [employer] [facility] Work Phone: EXAMINATION: TWO XRAY VIEWS OF THE CHEST 05/19/2019 11:41 am COMPARISON: None. HISTORY: ORDERING SYSTEM PROVIDED HISTORY: preop sleeve gastrectomy Reason for Exam: Preop 06/01/19. no chest complaints Type of Exam: Initial FINDINGS: The lungs are without acute focal process. No effusion or pneumothorax. The cardiomediastinal silhouette is normal. The osseous structures are intact without acute process. [employer] Work Phone: Car, pn Incoming Radiant Results From [employer] - 05/19/2019 11:50 AM EST EXAMINATION: TWO [...] intact without acute process. IMPRESSION: Negative chest. [employer] Work Phone: Vital Signs Date Time Vital Sign Value Performing Clinician Emilia henley 05-14-2023 11:28-0500 Body height 190.5 cm Carla esquivel APRN-TOP TAPER MACHINE Work Phone: [place] 05-14-2023 11:28-0500 Body mass index (BMI) [Ratio] 48.25 kg/m2 Carla Sheaer AUTO HIKER-TOP TAPER MACHINE Work Phone: [place] 05-14-2023 11:28-0500 Body weight 175.09 kg Carla Decsorinophe r AUTO HIKER-TOP TAPER MACHINE Work Phone: [place] 05-14-2023 11:28-0500 Diastolic blood pressure 80 mm[Hg] Carla Decistopher AUTO HIKER-TOP TAPER MACHINE Work Phone: [place] 05-14-2023 11:28-0500 Heart rate 61 /min Carla Dechriamophe r AUTO HIKER-TOP TAPER MACHINE Work Phone: [place] 05-14-2023 11:28-0500 SaO2% (BldA) [Mass fraction] 95 % Carla Decistopher AUTO HIKER-TOP TAPER MACHINE Work Phone: [place] 05-14-2023 11:28-0500 Systolic blood pressure 116 mm[Hg] Carla Dechristopher AUTO HIKER-TOP TAPER MACHINE Work Phone: [place] 06-02-2019 07:15-0500 Body temperature 99.3 [degF] Serafin Shearer MD Work Phone: [employer] Work Phone: 06-02-2019 07:15-0500 Diastolic blood pressure 59 mm[Hg] Serafin Shearer MD Work Phone: [employer] Work Phone: 06-02-2019 07:15-0500 Heart rate 62 /min Serafin Shearer MD Work Phone: [employer] Work Phone: 06-02-2019 07:15-0500 Respiratory rate 16 /min Serafin Shearer MD Work Phone: [employer] Work Phone: 06-02-2019 07:15-0500 SaO2% (BldA) [Mass fraction] 95 % Serafin Shearer MD Work Phone: [employer] Work Phone: 06-02-2019 07:15-0500 Systolic blood pressure 116 mm[Hg] Serafin Shearer MD Work Phone: [employer] Work Phone: 06-01-2019 09:10-0500 Body height 190.5 cm Serafin Shearer MD Work Phone: [employer] Work Phone: 06-01-2019 09:10-0500 Body mass index (BMI) [Ratio] 53.24 kg/m2 Serafin Shearer MD Work Phone: [employer] Work Phone: 06-01-2019 09:10-0500 Body weight 193.2 kg Serafin Shearer MD Work Phone: [employer] Work Phone: Encounters Encounter Date Encounter Type Care Provider Facility Start: 10-22-2023 ambulatory LESLY MELCHOR MD [facility] ity:[facility] Start: 10-17-2023 End: 10-17-2023 ambulatory PA Kelley Redmond Facility:[facility] Start: 10-10-2023 End: 10-10-2023 ambulatory PA Kelley Redmond Facility:[facility] Start: 10-04-2023 ambulatory Srinivas R Dolce Facility :[facility] Start: 10-02-2023 ambulatory Srinivas R Dolce Facility :[facility] Start: 09-26-2023 ambulatory Melo Reno acility:[facility] Start: 09-26-2023 End: 09-26-2023 ambulatory PA Kelley Redmond Facility:[facility] Start: 09-25-2023 End: 09-25-2023 ambulatory LESLY MELCHOR MD Facility:[facility] Start: 09-16-2023 End: 09-16-2023 ambulatory Srinivas R Dolce Facility:[facility] Start: 09-10-2023 End: 09-10-2023 ambulatory PA Kelley Redmond Facility:[facility] Start: 09-02-2023 End: 09-02-2023 ambulatory Srinivas R Dolce Facility:[facility] Start: 08-26-2023 End: 08-26-2023 ambulatory Srinivas R Dolce Facility:[facility] Start: 08-19-2023 End: 08-19-2023 ambulatory Srinivas R Dolce Facility:[facility] Start: 08-15-2023 End: 08-15-2023 ambulatory PA Kelley Redmond Facility:[facility] Start: 08-08-2023 End: 08-08-2023 ambulatory PA Kelley Redmond Facility:[facility] Start: 08-01-2023 End: 08-01-2023 ambulatory PA Kelley Redmond Facility:[facility] Start: 07-26-2023 End: 07-26-2023 ambulatory Srinivas R Dolce Facility:[facility] Start: 07-24-2023 End: 07-24-2023 ambulatory Srinivas R Dolce Facility:[facility] Start: 07-24-2023 End: 07-24-2023 ambulatory Srinivas R Dolce Facility:[facility] Start: 07-19-2023 End: 07-19-2023 ambulatory LESLY MELCHOR MD Facility:[facility] Start: 07-19-2023 End: 07-19-2023 ambulatory Srinivas R Dolce Facility:[facility] Start: 07-15-2023 End: 07-15-2023 ambulatory Srinivas R Dolce Facility:[facility] Start: 07-12-2023 End: 07-12-2023 ambulatory Srinivas R Dolce Facility:[facility] Start: 07-10-2023 End: 07-10-2023 ambulatory Srinivas R Dolce Facility:[facility] Start: 07-05-2023 End: 07-05-2023 ambulatory Srinivas R Dolce Facility:[facility] Start: 07-01-2023 End: 07-01-2023 ambulatory Srinivas R Dolce Facility:[facility] Start: 06-26-2023 End: 06-26-2023 ambulatory LESLY MELCHOR MD Facility:[facility] Start: 05-14-2023 End: 05-14-2023 Office outpatient visit 15 minutes Carla SAGETOP TAPER MACHINE Work Phone: [facility] Comment on above: Cardiac pacemaker (P rimary Dx); Morbid obesity with BMI of 40.0-44.9, adult ([facility]); Complete heart block ([facility]) Start: 05-14-2023 End: 05-14-2023 Clinical Support Ppc Pacer [facility] Comment on above: Cardiac pacemaker (P rimary Dx) Start: 03-26-2023 End: 03-26-2023 ambulatory LESLY MELCHOR MD Facility:[facility] Start: 12-21-2022 End: 12-21-2022 ambulatory LESLY MELCHOR MD Facility:[facility] Start: 12-13-2022 End: 12-13-2022 ambulatory LESLY MELCHOR MD Facility:[facility] Start: 11-27-2022 ambulatory LESLY MELCHOR MD Facil ity:[facility] Start: 02-10-2021 End: 02-11-[address] [facility] Start: 02-10-2021 End: 02-10-2021 Subsequent hospital visit by physician [facility] Comment on above: History of pulmonary embolism; Hx of deep venous thrombosis Start: 06-01-2019 End: 06-02-2019 Evaluation and management of inpatient SERAFIN SHEARER [facility] Start: 06-01-2019 End: 06-02-2019 Evaluation and management of inpatient Serafin Shearer MD Work Phone: [facility] Comment on above: S/P laparoscopic sle ramon gastrectomy (Primary Dx) Start: 05-19-2019 End: 2019 Patient encounter procedure SERAFIN SHEARER [facility] Start: 05-19-2019 End: 05-21-2019 Subsequent hospital visit by physician Christian 2 [facility] Comment on above: Arrived Procedures [...] Phone: Start: 06-01-2019 Glucose blood reagent strip Seraifn Shearer MD Work Phone: Start: 06-01-2019 TELEMETRY [...] OF BED 60 DEGREES OR LESS SERAFIN SHEARER Start: 06-01-2019 NURSING COMMUNICATION SERAFIN CMJUNAID Start: 06-01-2019 TURN PATIENT SERAFIN SHEARER Start: 06-01-2019 PATIENT STATUS (FROM ED OR OR/PROCEDURAL) SERAFIN CMJUNAID Start: 06-01-2019 TRANSFER PATIENT SERAFIN SHEARER Start: 06-01-2019 Level iv surg pathology gross&microscopic exam SERAFIN SHEARER Start: 06-01-2019 End: 06-01-2019 Laps gstrc rstrictiv px longitudinal gastrectomy Serafin Shearer MD Work Phone: Start: 05-19-2019 NURSING COMMUNICATION SREAFIN SHEARER Start: 05-19-2019 Assay of nicotine SERAFIN SHEARER Start: 05-19-2019 Basic metabolic panel calcium total SERAFIN SHEARER Start: 05-19-2019 Blood count complete automated SERAFIN JEREMYJUNAID Start: 05-19-2019 Prothrombin time SERAFINGERMAINE SHEARER Start: 05-19-2019 Radiologic exam chest 2 views SERAFIN SHEARER Start: 05-19-2019 Ecg routine ecg w/least 12 lds w/i&r SERAFIN SHEARER Start: 05-19-2019 EKG REPORT SERAFIN CMJUNAID Start: 05-19-2019 Radiologic exam chest 2 views Serafin Shearer MD Work Phone: Plan of Treatment Date Care Activity Detail Author Start: 2027 Pneumococcal 0-64 ye ars Vaccine (2 of 2 - PPSV23) Pneumococcal 0-64 years Vaccine (2 of 2 - PPSV23) [facility] Phone: Start: 12-30-2025 Lipid panel Lipid screen [facility] Work Phone: Start: 05-14-2024 Adult BMI Screening [facility] Screen ing [facility] Start: 05-14-2024 Tobacco Screening Tobacco Screening [facility] [employer] [facility] Start: 07-30-2023 Lipid screen Lipid screen [facility] Work Phone: Start: 12-30-2021 [facility] Phone: Start: 12-30-2021 Potassium monitoring Potassium monit ori [employer] Work Phone: Start: 12-30-2021 Thyroid stimulating hormone measurement TSH testing [facility] [employer] Phone: Start: 08-29-2021 End: 08-29-2021 Patient encounter procedure 08/29/2021 Office Visit Oncology Amarjit Delgadillo MD [address] [place] [address] [facility] Start: 03-24-2021 End: 03-24-2021 Patient encounter procedure 03/24/2021 Office Visit Pulmonology Teddy Fam MD [address] [address] [facility] Start: 02-14-2021 End: 02-14-2021 Patient encounter procedure 02/14/2021 Office Visit Bariatrics Mary Lou Power, AUTO HIKER - TOP TAPER MACHINE [address] [facility] [address] [place] [address] [facility] Start: 01-04-2021 Influenza vaccination Flu vaccine (# 1) [facility] Phone: Start: 05-19-2020 Creatinine monitoring Creatinine mon itoring [facility] Phone: Start: 05-19-2020 Potassium monitoring Potassium monit oring [facility] [employer] Phone: Start: 07-30-2019 TSH testing TSH testing [facility] [employer] Phone: Start: 06-12-2019 End: 06-12-2019 Patient encounter procedure 06/12/2019 Office Visit Pulmonology Teddy Fam MD [address] [address] [facility] Start: 06-09-2019 End: 06-09-2019 Patient encounter procedure 06/09/2019 Office Visit Bariatrics Serafin Shearer MD [address] [place] [phone] [facility] Start: 06-01-2019 End: 06-01-2019 Admission to same day surgery center 06/01/2019 Surgery IP Unit Serafin Shearer MD [address] [facility] [place] [phone] XI ROBOTIC LAPAROSCOPIC GASTRECTOMY SLEEVE, ENDOSEAL [facility] Comment on above: XI ROBOTIC LAPAROSCO PIC GASTRECTOMY SLEEVE, ENDOSEAL Start: 06-01-2019 Subsequent hospital visit by physician 06/01/2019 Hospital Encounter IP Unit Serafin Shearer MD [address] [facility] [place] [address] [facility] Start: 03-06-2019 Annual Wellness Visi t (AWV) Annual Wellness Visit (AWV) [facility] Phone: Start: 2012 Administration of varicella zoster vaccine Zoster (Shingles) Vaccine (1 of 2) [place] Start: 2012 Colon cancer screen colonoscopy Colon cancer screen colonoscopy [facility] Phone: Start: 2012 Shingles Vaccine (1 of 2) Shingles Vaccine (1 of 2) [facility] Phone: Start: 2007 Screening for malign ant neoplasm of colon Colon cancer screen colonoscopy [facility] Phone: Start: 1981 DTaP,Tdap and Td Vaccines (1 - Tdap) DTaP,Tdap and Td Vaccines (1 - Tdap) [place] Start: 1981 DTaP/Tdap/Td vaccine (1 - Tdap) DTaP/Tdap/Td vaccine (1 - Tdap) [facility] Phone: Start: 1980 Adult BMI Follow Up Plan Adult BMI Follow Up Plan [place] Start: 1977 HIV screen HIV screen [employer] Phone: Start: 1977 HIV screening HIV screen [facility] Work Phone: Start: 1974 Depression Screening Depression Scre enarmando [place] Start: 1973 DTaP/Tdap/Td vaccine (1 - Tdap) DTaP/Tdap/Td vaccine (1 - Tdap) [facility] Phone: Start: 1962 Hepatitis C screen Hepatitis C kojo franz [facility] Phone: Start: 1962 Hepatitis C screening Hepatitis C sc sagrario [facility] Phone: Start: 1962 Tobacco Counseling Tobacco Counselin g [place] Home BIPAP or CPAP Home BIPAP or CPAP Respiratory Care Routine Daily until discontinued starting 06/01/2019 [facility] Phone: Comment on above: Daily until disconti nued starting 06/01/2019 Initiate Oxygen Ther apy Protocol Initiate Oxygen Therapy Protocol Respiratory Care Routine Daily until discontinued starting 06/01/2019 [facility] Phone: Comment on above: Daily until disconti nued starting 06/01/2019 Surgical Pathology Surgical Path ology Lab Routine ONE TIME for 1 Occurrences starting 06/01/2019 [facility] Phone: Comment on above: ONE TIME for 1 Occur rences starting 06/01/2019 Immunizations Immunization Date Immunization Notes Care Provider Bhavna lynch 12-16-2013 pneumococcal polysaccharide vaccine, 23 valent St[facility] 2 [facility] Payers Date Payer Category Payer Self-pay 2019 Unknown DAKOTA [employer]EFITS DAKOTA COYLE xxxxxxxxxxx 2019-Present [address] [place] [address] xxxxxxxxxxx [id number] 2018 Medicaid [facility] DAKOTA ARANDA MEDICAID [id number] 2018-Present [phone] [address] [place] [address] [id number]. [id number] 2018 Medicaid [id number] 2018 Medicare [employer] MEDICARE [id number] 2018-Present [phone] [address] [place] [address] [id number]. [id number] 2018 Unknown [id number] 1960 Unknown [id number] 2.16.840.1.293208.3.579.2.175 1962 Unknown [id number] 2.16.840.1.057489.3.579.2.175 1962 Unknown [id number] 2.16.840.1.085021.3.579.2.175 1962 Unknown [id number] 2.16.840.1.086624.3.579.2.176 1962 Unknown [id number] 2.16.840.1.756810.3.579.2.1286 1962 Unknown [id number] 2.16.840.1.570693.3.579.2.1286 1962 Unknown [id number] 2.16.840.1.857523.3.579.2.718 1962 Unknown [id number] 2.16.840.1.426810.3.579.2.718 1962 Unknown [id number] 2.16.840.1.677261.3.579.2.8 1962 Unknown [id number] 2.16.840.1.367460.3.579.2.718 1962 Unknown [id number] 2.16.840.1.350397.3.579.2.71 1962 Unknown [id number] 2.16.840.1.610307.3.579.2. 1962 Unknown [id number] 2.16.840.1.062463.3.579.2. 1962 Unknown [id number] 2.16.840.1.537990.3.579.2. 1962 Unknown [id number] 2.16.840.1.071124.3.579.2. 1962 Unknown [id number] 2.16.840.1.377704.3.579.2. 1962 Unknown [id number] 2.16.840.1.664676.3.579.2. 1962 Unknown [id number] 2.16.840.1.329472.3.579.2. 1962 Unknown [id number] 2.16.840.1.458401.3.579.2. 1962 Unknown [id number] 2.16.840.1.464563.3.579.2. 1962 Unknown [id number] 2.16.840.1.702405.3.579.2. 1962 Unknown [id number] 2.16.840.1.883766.3.579.2. 1962 Unknown [id number] 2.16.840.1.814588.3.579.2. 1962 Unknown [id number] 2.16.840.1.703182.3.579.2. 1962 Unknown [id number] 2.16.840.1.319405.3.579.2. 1962 Unknown [id number] 2.16.840.1.354491.3.579.2. 1962 Unknown [id number] 2.16.840.1.365562.3.579.2. 1962 Unknown [id number] 2.16.840.1.439065.3.579.2. 1962 Unknown [id number] 2.16.840.1.938849.3.579.2. 1962 Unknown [id number] 2.16.840.1.274998.3.579.2. 1962 Unknown [id number] 2.16.840.1.690575.3.579.2. 1962 Unknown [id number] 2.16.840.1.487023.3.579.2. 1962 Unknown [id number] 2.16.840.1.268114.3.579.2. 1962 Unknown [id number] 2.16.840.1.468986.3.579.2. 1962 Unknown [id number] 2.16.840.1.377619.3.579.2. 1962 Unknown [id number] 2.16.840.1.930253.3.579.2. 1962 Unknown [id number] 2.16.840.1.755526.3.579.2. 1962 Unknown [id number] 2.16.840.1.069790.3.579.2. 1962 Unknown [id number] 2.16.840.1.894490.3.579.2. 1962 Unknown [id number] 2.16.840.1.889555.3.579.2. 1962 Unknown [id number] 2.16.840.1.969785.3.579.2 Unknown [id number] 2.16.840.1.682971.3.579.2.531 Social History Date Type Detail Facility Start: 02-08-2021 End: 04-18-2022 Tobacco smoking status [facility] Never smoker [facility] Start: 02-08-2021 Tobacco use and exposure Former user [facility] Phone: End: 01-17-2021 History of tobacco use Chews Tobacco [facility] Phone: Start: 02-08-2021 End: 05-14-2023 Alcohol intake Ex-drinker (finding) [facility] Phone: Start: 07-25-2018 History SDOH Alcohol Frequency 1 [facility] Phone: Start: 1960 [facility] Start: 04-18-2022 Tobacco use and exposure [facility] of smokeless tobacco [facility] Start: 06-16-2020 End: 05-14-2023 History of Social function [facility] Start: 06-16-2020 End: 05-14-2023 Tobacco use panel [facility] Medical Equipment Procedure Code Equipment Code Equipment Origin al Text Equipment Identifier Dates Ld Pcng Ingevity + 52cm Mri - [id number] - [id number] Start: 08-25-2020 Cardiac pacemaker, device (physical object) ([id number]) Pcmkr Accolade Mri Dr Cade - [id number] - [id number] Start: 08-25-2020 Goals Date Patient Goal Desired Activity /State Personal health goal Comment on above: Formatting of this n ote might be different from the original. Evaluation of progress towards goal: home self care Clinical Notes 06-02-2019 to 10-17-2023 Carla Cain APRN-TOP TAPER MACHINE - 05/14/2023 11:30 AM Juanita Hopper MD - 05/14/2023 11:00 AM Starr Sanon RN - 06/02/2019 7:24 AM Serafin Jesus MD - 06/02/2019 6:43 AM EST Note Date & Type Note Facility 10-17-2023 Note Entered by Yousuf Pierce on October 17, 2023 07:43:22 EDT From: Ana Pierce [facility] Sent: 10/17/2023 07:43:22 EDT Subject: Medication Management Submitted: Complete:levothyroxine (levothyroxine 150 mcg (0.15 mg) oral tablet) Signed by Ana Pierce 10/17/2023 07:43:00 EDT Approved with modifications: levothyroxine (LEVOTHYROXINE 150MCG TAB 150 Tablet) TAKE 1 TABLET BY MOUTH ONCE DAILY Qty: 30 tab(s) Days Supply: 30 Refills: 10 Substitutions Allowed [facility] Signed by Ana Pierce --------- From: [facility] To: KAREN ZAPATA, LESLY To MD Sent: October 16, 2023 5:12:16 PM CDT Subject: Medication Management Due: October 17, 2023 4:18:32 PM CDT On Hold Pending Signature Drug: levothyroxine (levothyroxine 150 mcg (0.15 mg) oral tablet), TAKE 1 TABLET BY MOUTH ONCE DAILY Quantity: 90 tab(s) Days Supply: 0 Refills: 0 Substitutions Allowed Notes from Pharmacy: Dispensed Drug: levothyroxine (levothyroxine 150 mcg (0.15 mg) oral tablet), TAKE 1 TABLET BY MOUTH ONCE DAILY Quantity: 30 tab(s) Days Supply: 30 Refills: 10 Substitutions Allowed Notes from Pharmacy: --------- [facility] 07-24-2023 Note CLINICAL DATA: Venou s insufficiency [...] Signature): Romulo Wright 07/24/23 10:38 a Technologist: [facility] 07-08-2023 Note Entered by Yousuf Pierce on July 08, 2023 07:59:35 EST From: Ana Pierce To: [facility] Sent: 07/08/2023 07:59:35 EST Subject: Medication Management Not Approved: now on pulmicort fluticasone (FLUTICASONE PROP HFA 110MCG 110 Aerosol) INHALE 2 PUFFS BY MOUTH TWICE DAILY *RINSE MOUTH AFTER USE* Qty: 12 gm Days Supply: 30 Refills: 10 Substitutions Allowed Route To Pharmacy - [facility] Signed by Ana Pierce --------- From: [facility] To: KAREN ZAPATA, LESLY To MD Sent: July 05, 2023 4:32:01 PM PHOTOGRAPHY PROFESSOR Subject: Medication Management Due: July 06, 2023 12:09:30 AM PHOTOGRAPHY PROFESSOR On Hold Pending Signature Drug: fluticasone (Flovent [...] 10 Substitutions Allowed Notes from Pharmacy: --------- [facility] 05-28-2023 Note Entered by Yousuf Pierce on May 28, 2023 07:49:21 EST From: Ana Pierce To: [facility] Sent: 05/28/2023 07:49:21 EST Subject: Medication Management Submitted: Complete:oxyBUTYnin (oxybutynin 10 mg/24 hr oral tablet, extended release) Signed by Ana Pierce 05/28/2023 07:49:00 EST Approved with modifications: oxyBUTYnin (OXYBUTYNIN ER 10MG TAB 10 Tablet) TAKE 1 TABLET BY MOUTH DAILY Qty: 30 tab(s) Days Supply: 30 Refills: 10 Substitutions Allowed Route To Pharmacy - [facility] Signed by Ana Pierce --------- From: [facility] To: KAREN ZAPATA, LESLY To MD Sent: May 27, 2023 5:22:40 PM PHOTOGRAPHY PROFESSOR Subject: Medication Management Due: May 28, 2023 12:05:03 AM PHOTOGRAPHY PROFESSOR On Hold Pending Signature Drug: oxyBUTYnin (oxybutynin 10 mg/24 hr oral tablet, extended release), 1 tab(s) PO Daily Quantity: 30 tab(s) Days Supply: 0 Refills: 10 Substitutions Allowed Notes from Pharmacy: Dispensed Drug: oxyBUTYnin (oxybutynin 10 mg/24 hr oral tablet, extended release), TAKE 1 TABLET BY MOUTH DAILY Quantity: 30 tab(s) Days Supply: 30 Refills: 10 Substitutions Allowed Notes from Pharmacy: --------- [facility] 05-14-2023 History of Present illness Narrative Yrn Ricardo Date of visit: 05/14/2023 Date of : 1960 Age: 62 y.o. Patient Active Problem List Diagnosis Complete heart block ([facility]) Abnormal stress test Cardiac pacemaker Morbid obesity with BMI of 40.0-44.9, adult ([facility]) Bilateral primary osteoarthritis of knee Blister of [...] PE, chronic lymphedema, complete heart block s/p [employer] dual-chamber pacemaker implanted 2020. He is here today for routine evaluation. Patient states he has been doing well since last office visit. He denies chest pain, shortness of breath, palpitations, fatigue. Patient enjoys fishing with his grandson. Past Medical History: Diagnosis Date Anxiety COPD (chronic obstructive pulmonary disease) ([facility]) Depression Hypertension Hypothyroidism Sleep apnea No data recorded No data recorded No data recorded Past Surgical History: Procedure Laterality Date Cardiac catheterization N/A 08/23/2020 Performed by Brian Hilario MD at [facility] C[facility] CATH [facility]S Coronary angiogram and left ventricular gram/pressure N/A 08/23/2020 Performed by Brian Hilario MD at [facility] CARDI[facility] CATH LABS EP - Device-PPM Left 08/25/2020 [facility] HAND RECONSTRUCTION Left SLEEVE GASTROPLASTY 05/2019 Family [...] Morbid obesity with BMI of 40.0-44.9, adult ([facility]) 3. Complete heart block ([facility]) Intermittent complete heart block s/p [employer] dual-chamber pacemaker implanted 2020 Device check [...] MELCHOR MD Referring Physician: Lesly Melchor MD [address] [place] [id number] Carla Cain, AUTO HIKER-TOP TAPER MACHINE 05/14/23 1202 documented in this encounter [facility] 05-14-2023 History of Present illness Narrative I agree with the findings in the scanned document. documented in this encounter [facility] 01-11-2023 Note Entered by Yousuf Pierce on January 11, 2023 07:51:29 EDT From: Ana Pierce To: [facility] Sent: 01/11/2023 07:51:29 EDT Subject: Medication Management Submitted: Complete:rivaroxaban (Xarelto 20 mg oral tablet) Signed by Ana Pierce 01/11/2023 07:51:00 EDT Approved with modifications: rivaroxaban (XARELTO 20 MG TABLET 20 Tablet) TAKE 1 TABLET BY MOUTH IN THE EVENING WITH MEALS Qty: 30 tab(s) Days Supply: 30 Refills: 10 Substitutions Allowed Route To Pharmacy - [facility] Signed by Ana Pierce Patient matched by Ana Pierce on 01/11/2023 07:51:09 EDT --------- From: [facility] To: KAREN ZAPATA, LESLY To MD Sent: January 10, 2023 5:18:47 PM CDT Subject: Medication Management Due: January 11, 2023 1:31:05 PM CDT On Hold Pending Signature Dispensed Drug: rivaroxaban (Xarelto 20 mg oral tablet), TAKE 1 TABLET BY MOUTH IN THE EVENING WITH MEALS Quantity: 30 tab(s) Days Supply: 30 Refills: 10 Substitutions Allowed Notes from Pharmacy: --------- [facility] 06-02-2019 History of Present illness Narrative [...] Intake/Output Summary (Last 24 hours) at 06/02/2019 0643 Last data filed at 06/02/2019 0457 Gross [...] time. Will continue to monitor. Notified Chang Golden of blood glucose via phone, stated you [...] patient today. Will follow up as able. DIANA NICHOLS 1:03 PM documented in this encounter [facility] Phone: Evaluation note Diagnosis History of pulmonary embolism Personal history of pulmonary embolism Hx of deep venous thrombosis Personal history of venous thrombosis and embolism documented in this encounter [facility] Phone: evaluation note* Diagnosis S/P laparoscopic sleeve gastrectomy- Primary documented in this encounter [facility] Phone: evaluation note* Diagnosis Cardiac pacemaker- Primary Cardiac pacemaker in situ Morbid obesity with BMI of 40.0-44.9, adult (CMS-HCC) Complete heart block ([facility]) Atrioventricular block, complete [facility]* Diagnosis Cardiac pacemaker- Primary Cardiac pacemaker in situ documented in this encounter [facility] Discharge instructions* Instructions* Stewart Golden DO - 06/02/2019 Discharge Instructions for Bariatric Surgery You had a Laparoscopic Sleeve Gastrectomy (97763) to treat obesity. Recovery from this surgery [...] scheduled appointment, please call the office at [phone]. Call Your Doctor If Any of the [...] sent through Care Everywhere. * Enoxaparin (Lovenox) ([place]gent[place]) * enoxaparin ([place]gent[place]) documented in this encounterMMIT Phone: InstructionsNot on filedocumented in this encounter [facility] SystemInstructionsNot on filedocumented in this encounter [facility] [email or web address] System Summary Purpose Family History No Family History Records FoundNo Family History Records FoundNo Family History Records FoundNo Family History Records FoundNo Family History Records Found Advance Directives No Advanced Directives Records FoundDocuments on File Type Date Recorded Patient Vice President Sales And Marketing Expl anation ACP-Advance Directive ACP-Power of Enterprise Sales Executive Latest Code Status on File Code Status Date Activated Date Inactivated Comments Full Code 06/01/2019 12:33 PM 06/02/2019 3:05 PM Documents on File Type Date Recorded Patient Vice President Sales And Marketing Expl anation Advance Directives and Living Will Power of Enterprise Sales Executive Documents on File Type Date Recorded Patient Vice President Sales And Marketing Expl anation Advance Directives and Living Will Power of Enterprise Sales Executive Latest Code Status on File Code Status Date Activated Date Inactivated Comments Full Code 06/01/2019 12:33 PM Reason for Referral Status Reason Specialty Diagnoses / Procedures Referred By Contact Referred To Contact Pending Review Radiology Diagnoses History of pulmonary embolism Hx of deep venous thrombosis Procedures VL DUP LOWER EXTREMITY VENOUS BILATERAL Amarjit Delgadillo MD [address] [place] [address] Specialty Diagnoses / Procedures Referred By Jihan rowe Referred To Contact Diagnoses Cardiac pacemaker Procedures Device Interrogation Carla Cain APRN-TOP TAPER MACHINE [address] [place] [address] Referral ID Status Reason Start Date Expiration Date V isits Requested Visits Authorized [id number] Pending Review 05/14/2023 05/13/2024 1 1 Additional Source Comments (unrecognized sect ion and content) No Status Records FoundNo Status Records FoundNo Status Records FoundNo Status Records FoundNo Status Records Found INFORMATION SOURCE (unrecogn ized section and content) DATE CREATED AUTHOR 07/14/2019 [facility] DATE CREATED AUTHOR AUTHOR'S ORGANIZ ATION 02/11/2021 [facility] DATE CREATED AUTHOR AUTHOR'S ORGANIZ ATION 05/19/2023 [facility] DATE CREATED AUTHOR AUTHOR'S ORGANIZ ATION 09/29/[address] [facility] DATE CREATED AUTHOR AUTHOR'S ORGANIZ ATION 10/22/2023 [facility] Reason for Visit (unrecogniz ed section and content) Status Reason Specialty Diagnoses / Procedures Referred By Contact Referred To Contact Pending Review Radiology Diagnoses History of pulmonary embolism Hx of deep venous thrombosis Procedures VL DUP LOWER EXTREMITY VENOUS BILATERAL Amarjit Delgadillo MD [address] [place] [address] Status Reason Specialty Diagnoses / Procedures Referre d By Contact Referred To Contact Diagnoses Obesity OBESITY, HYPERTENSION, COPD, HYPOTHYROIDISM, LIPODEMIA Procedures MN LAP, DHARMESH RESTRICT PROC, LONGITUDINAL GASTRECTOMY XI ROBOTIC LAPAROSCOPIC GASTRECTOMY SLEEVE, ENDOSEAL Serafin Shearer MD [address] [place] [address] [facility] Reason Comments Device Check Reason Comments Device Check Care Teams (unrecognized sec tion and content) Salon/Spa Manager Relationship Specialty Start Date End Date Lesly Melchor MD [address] [place] [id number] PCP - General 02/10/16 Salon/Spa Manager Relationship Specialty Start Date End Date Lesly Melchor MD [address] [place] [address] PCP - General 02/10/16 FOR RECORDS PERTAINING [...] BE BASED ON THE PRIMARY CLINICAL RECORDS. [facility] [employer] provides no warranty or guarantee of the accuracy or completeness of information in this document.
== END 2023-10-24 09:29 | disposition home or self-care (01) ==
LOC: VC 09:28
PROVIDERS: PCP Radiology Diagnostic Radiology; Visit Provider Radiology Diagnostic Radiology
DX: I83.813 Varicose veins of bilateral lower extremities with pain (principal)
CPT/HCPCS: 36478

== ENCOUNTER 2023-10-31 09:23 | Outpatient (OUT) | payer MEDICARE, MEDICAID, SELFPAY ==
--- NOTE | 2023-10-31 09:35 | VEIN_ITS ---
Patient Name: YRN RICARDO MR#: [id number] : 1960 Exam Date: 10/31/2023 Ordering Doctor: DR TRINO ISRAEL M.D. RADIOLOGY REPORT PROCEDURE: VC EXT VENOUS LT LIMITED COMPARISON: VC EXT VENOUS LT LIMITED, 09/24/2023. INDICATIONS: Phlebitis of superficial veins of lt lower extremity I80.02 TECHNIQUE: Lower extremity nuñez scale and Duplex Doppler evaluation of the deep venous system from the inguinal ligament through the calf veins. FINDINGS: REGION: Left lower extremity. THROMBI: Negative for DVT. Heat induced thrombus visualized 2.6cm from the SPJ. The heat induced thrombus extends through distal calf. COMPRESSIBILITY: Non-compressible segments corresponding to thrombus FLOW: Areas of no flow corresponding to thrombus CONCLUSION: Post ablation occlusion of the right small saphenous vein with heat induced thrombus 2.6 cm from the saphenopopliteal junction Dictated by: Trino Israel MD on 10/31/2023 at 10:06 Approved by: Trino Israel MD on 10/31/2023 at 10:07
--- NOTE | 2023-10-31 09:35 | VEIN_ITS ---
Patient Name: YRN RICARDO MR#: [id number] : 1960 Exam Date: 10/31/2023 Ordering Doctor: DR TRINO ISRAEL M.D. RADIOLOGY REPORT PROCEDURE: FACILITY EST LMTD [facility] - OFFICE VISIT FOLLOW UP COMPARISON: [facility] EST LMTD, 10/15/2023. FACILITY EST LMTD, 09/24/2023. PROGRESS NOTES: The patient reports no significant problems following intravenous laser ablation of the left small saphenous vein. The patient has worn his compression stocking. The patient does report that his venous stasis ulcerations nearly completely healed. Physical exam demonstrates significant reduction in skin thickening swelling and erythema both legs. The small saphenous vein cannot be palpated likely related to patient body habitus. No new ulceration. No erythema or warmth to suggest cellulitis of thrombus widest Review of the ultrasound performed the same day demonstrates occlusive thrombus extending throughout the treated left small saphenous vein. No deep vein thrombus. Heat induced thrombus is 2.6 cm from the saphenopopliteal junction. The patient expressed a desire to proceed with treatment of incompetent perforating veins. VEIN/[facility] EST LMTD IMPRESSION: 1. Successful ablation of the left small saphenous vein. 2. Persistent bilateral incompetent perforating veins. PLAN: Intravenous laser ablation right leg incompetent perforating veins Nurse notes, history and physical were reviewed and confirmed, see attached forms. The nurse was present throughout the physical exam and consultation Dictated by: Trino Israel MD on 10/31/2023 at 10:13 Approved by: Trino Israel MD on 10/31/2023 at 10:15
--- OUTSIDE RECORDS SUMMARY | 2023-10-31 09:53 | XMS_ITS ---
Patient Summarization (C-CDA 2.1 CCD) Created on: October 31, 2023 YRN RICARDO : 1960 Sex: Male Author Organization Sample organization Care Team Providers Care Compression Molding Machine Setter Name Role Phone SERAFIN SHEARER Referring Unavailable LESLY MELCHOR Primary Care Unavailable SERAFIN SHEARER Referring Unavailable LESLY MELCHOR Primary Care Unavailable SERAFIN SHEARER Admitting Unavailable SERAFIN SHEARER Attending Unavailable LESLY MELCHOR Primary Care Unavailable Lesly Melchor Primary Care Provider CONSUELO DELGADILLO Referring Unavailable LESLY MELCHOR Primary Care Unavailable Lesly Melchor Primary Care Provider [phone] Lesly Melchor MD Primary Care Provider [phone] LESLY MELCHOR Referring Unavailable LESLY MELCHOR Primary [...] Primary Care Unavailable PETER Redmond Admitting Unavailable Dolce, Srinivas R Admitting Unavailable Dolce, [...] KAREN ZAPATA, LESLY To Primary Care Unavailable LESLY MELCHOR MD Attending Unavailable LESLY MELCHOR MD Primary Care Unavailable Dolce, Srinivas R Admitting Unavailable Dolce, Srinivas R Attending Unavailable LESLY MELCHOR MD Primary Care Unavailable Dolce, Srinivas R Admitting Unavailable Dolce, Srinivas R Attending Unavailable KAREN ZAPATA, LESLY To Primary Care Unavailable PETER Redmond Attending Unavailable KAREN ZAPATA, LESLY To Primary Care Unavailable PETER Redmondine Admitting Unavailable PETER Redmond Kelley Admitting Unavailable KAREN ZAPATA, LESLY To Primary Care Unavailable PETER Redmondine Attending Unavailable PETER Redmond Kelley Admitting Unavailable PETER Redmondine Attending Unavailable KAREN ZAPATA, LESLY To Primary Care Unavailable PETER Redmondine Attending Unavailable PETER Redmondine Admitting Unavailable KAREN ZAPATA, LESLY To Primary Care Unavailable KAREN ZAPATA, LESLY To Primary Care Unavailable PETER Redmond Attending Unavailable PETER Redmondine Admitting Unavailable PETER Redmond Attending Unavailable PETER Redmondine Admitting Unavailable LESLY MELCHOR MD Primary Care Unavailable LESLY MELCHOR MD Primary Care Unavailable Lamarca, Ai Attending Unavailable Lamarca, Ai Admitting Unavailable Dolce, Srinivas R Admitting Unavailable Dolce, Srinivas R Attending Unavailable LESLY MELCHOR MD Primary Care Unavailable Dolce, Srinivas R Attending Unavailable Dolce, Srinivas R Admitting Unavailable LESLY MELCHOR MD Primary Care Unavailable Allergies Allergy Classification Reported Allergen(s) Allergy Type Date of Onset Reaction(s) Facility (1 source) No Known Medication Allergies; Translations: [No Known Medication Allergies] Propensity to adverse reactions to drug (disorder) [facility] Repository Encounters Encounter Date Encounter Type Care Provider Facility Start: 10-25-2023 End: 10-25-2023 ambulatory Srinivas R Dolce Facility:[facility] Start: 10-17-2023 End: 10-17-2023 ambulatory PETER Redmond Facility:[facility] Start: 10-10-2023 End: 10-10-2023 ambulatory PETER Redmond Facility:[facility] Start: 10-04-2023 ambulatory Srinivas R Dolce Facility :[facility] Start: 10-02-2023 ambulatory Srinivas R Dolce Facility :[facility] Start: 09-26-2023 ambulatory Melo Reno acility:[facility] Start: 09-26-2023 End: 09-26-2023 ambulatory PA Kelley Redmond Facility:[facility] Start: 09-25-2023 End: 09-25-2023 ambulatory LESLY MELCHOR MD Facility:[facility] Start: 09-16-2023 End: 09-16-2023 ambulatory Srinivas R Dolce Facility:[facility] Start: 09-10-2023 End: 09-10-2023 ambulatory PA Kelley Redmond Facility:[facility] Start: 09-02-2023 End: 09-02-2023 ambulatory Srinivas R Dolce Facility:[facility] Start: 08-26-2023 End: 08-26-2023 ambulatory Srinivas R Dolce Facility:[facility] Start: 08-19-2023 End: 08-19-2023 ambulatory Srinivas R Dolce Facility:[facility] Start: 08-15-2023 End: 08-15-2023 ambulatory PA Kelley Redmond Facility:[facility] Start: 08-08-2023 End: 08-08-2023 ambulatory PA Kelley Redmond Facility:[facility] Start: 08-01-2023 End: 08-01-2023 ambulatory PA Kelley Redmond Facility:[facility] Start: 07-26-2023 End: 07-26-2023 ambulatory Srinivas R Dolce Facility:[facility] Start: 07-24-2023 End: 07-24-2023 ambulatory Srinivas R Dolce Facility:[facility] Start: 07-24-2023 End: 07-24-2023 ambulatory Srinivas R Dolce Facility:[facility] Start: 07-19-2023 End: 07-19-2023 ambulatory LESLY MELCHOR MD Facility:[facility] Start: 07-19-2023 End: 07-19-2023 ambulatory Srinivas R Dolce Facility:[facility] Start: 07-15-2023 End: 07-15-2023 ambulatory Srinivas R Dolce Facility:[facility] Start: 07-12-2023 End: 07-12-2023 ambulatory Srinivas R Dolce Facility:[facility] Start: 07-10-2023 End: 07-10-2023 ambulatory Srinivas R Dolce Facility:[facility] Start: 07-05-2023 End: 07-05-2023 ambulatory Srinivas R Dolce Facility:[facility] Start: 07-01-2023 End: 07-01-2023 ambulatory Srinivas R Dolce Facility:[facility] Start: 06-26-2023 End: 06-26-2023 ambulatory LESLY MELCHOR MD Facility:[facility] Start: 05-14-2023 End: 05-14-2023 Office outpatient visit 15 minutes Olaf GOOD Work Phone: [facility] Comment on above: Cardiac pacemaker (P rimary Dx); Morbid obesity with BMI of 40.0-44.9, adult ([facility]); Complete heart block ([facility]) Start: 05-14-2023 End: 05-14-2023 Clinical Support Ppc Pacer [facility] Comment on above: Cardiac pacemaker (P rimary Dx) Start: 03-26-2023 End: 03-26-2023 ambulatory LESLY MELCHOR MD Facility:[facility] Start: 12-21-2022 End: 12-21-2022 ambulatory LESLY MELCHOR MD Facility:[facility] Start: 12-13-2022 End: 12-13-2022 ambulatory LESLY MELCHOR MD Facility:[facility] Start: 11-27-2022 ambulatory LESLY MELCHOR MD Facil ity:[facility] Start: 02-10-2021 End: 02-11-[address] [facility] Start: 02-10-2021 End: 02-10-2021 Subsequent hospital visit by physician [facility] [address] [facility] Comment on above: History of pulmonary embolism; Hx of deep venous thrombosis Start: 06-01-2019 End: 06-02-2019 Evaluation and management of inpatient SERAFIN SHEARER [facility] Start: 06-01-2019 End: 06-02-2019 Evaluation and management of inpatient Serafin Shearer MD Work Phone: [facility] Comment on above: S/P laparoscopic sle ramon gastrectomy (Primary Dx) Start: 05-19-2019 End: 2019 Patient encounter procedure SERAFIN SHEARER [facility] Start: 05-19-2019 End: 05-21-2019 Subsequent hospital visit by physician [address] Radiology Comment on above: Arrived Medical Equipment Procedure Code Equipment Code Equipment Origin al Text Equipment Identifier Dates Ld Pcng Ingevity + 52cm Mri - [id number] - [id number] Start: 08-25-2020 Cardiac pacemaker, device (physical object) ([id number]) Pcmkr Accolade Mri Dr Cade - [id number] - [id number] Start: 08-25-2020 Goals Date Patient Goal Desired Activity /State Personal health goal Comment on above: Formatting of this n ote might be different from the original. Evaluation of progress towards goal: home self care Immunizations Immunization Date Immunization Notes Care Provider Bhavna lynch 12-16-2013 pneumococcal polysaccharide vaccine, 23 valent [facility] 2 [facility] Medications Current Medications Medication Drug Class(es) Dates [...] hours as needed for pain. 0 Active [id number] 200 actuat albuterol 0.09 mg/actuat metered dose [...] Start: 07-05-2018 take 1 tablet by francesca once daily ARIPiprazole (ABILIFY) 20 MG tablet [...] End: 06-01-2019 midazolam (VERSED) injection 2 mg Payers Date Payer Category Payer Self-pay 2019 Unknown [place] D [employer]EF[employer] [facility] xxxxxxxxxxx 2019-Present [address] [place] [id number] xxxxxxxxxxx [id number] 2018 Medicaid [place] [facility] MEDICAID [id number] 2018-Present [phone] [address] [place] [address] [id number] 2018 Medicaid [id number] 2018 Medicare [place] [facility] MEDICARE [id number] 2018-Present [phone] [place] [address] [id number]. [id number] 2018 Unknown [id number] 1960 Unknown [id number] 2.16.840.1.251418.3.579.2.175 1960 Unknown [id number] 2.16.840.1.201632.3.579.2.175 1960 Unknown [id number] 2.16.840.1.830603.3.579.2.175 1960 Unknown [id number] 2.16.840.1.826035.3.579.2.176 1960 Unknown [id number] 2.16.840.1.600728.3.579.2.1286 1960 Unknown [id number] 2.16.840.1.375504.3.579.2.1286 1960 Unknown [id number] 2.16.840.1.302599.3.579.2. 1960 Unknown [id number] 2.16.840.1.412580.3.579.2. 1960 Unknown [id number] 2.16.840.1.220514.3.579.2. 1960 Unknown [id number] 2.16.840.1.063269.3.579.2. 1960 Unknown [id number] 2.16.840.1.710624.3.579.2. 1960 Unknown [id number] 2.16.840.1.327624.3.579.2. 1960 Unknown [id number] 2.16.840.1.579618.3.579.2. 1960 Unknown [id number] 2.16.840.1.444411.3.579.2. 1960 Unknown [id number] 2.16.840.1.294807.3.579.2. 1960 Unknown [id number] 2.16.840.1.295921.3.579.2. 1960 Unknown [id number] 2.16.840.1.581561.3.579.2. 1960 Unknown [id number] 2.16.840.1.151817.3.579.2. 1960 Unknown [id number] 2.16.840.1.077954.3.579.2. 1960 Unknown [id number] 2.16.840.1.055132.3.579.2. 1960 Unknown [id number] 2.16.840.1.133536.3.579.2. 1960 Unknown [id number] 2.16.840.1.822719.3.579.2. 1960 Unknown [id number] 2.16.840.1.381356.3.579.2. 1960 Unknown [id number] 2.16.840.1.036173.3.579.2. 1960 Unknown [id number] 2.16.840.1.587652.3.579.2. 1960 Unknown [id number] 2.16.840.1.998524.3.579.2. 1960 Unknown [id number] 2.16.840.1.336767.3.579.2. 1960 Unknown [id number] 2.16.840.1.829227.3.579.2. 1960 Unknown [id number] 2.16.840.1.671909.3.579.2. 1960 Unknown [id number] 2.16.840.1.047643.3.579.2. 1960 Unknown [id number] 2.16.840.1.927702.3.579.2. 1960 Unknown [id number] 2.16.840.1.405471.3.579.2. 1960 Unknown [id number] 2.16.840.1.530789.3.579.2. 1960 Unknown [id number] 2.16.840.1.284866.3.579.2. 1960 Unknown [id number] 2.16.840.1.607258.3.579.2.718 1960 Unknown [id number] 2.16.840.1.120522.3.579.2.718 1960 Unknown [id number] 2.16.840.1.846151.3.579.2.718 1960 Unknown [id number] 2.16.840.1.643099.3.579.2.8 1960 Unknown [id number] 2.16.840.1.914501.3.579.2.718 1960 Unknown [id number] 2.16.840.1.283461.3.579.2.8 1960 Unknown [id number] 2.16.840.1.289312.3.579.2.8 1960 Unknown [id number] 2.16.840.1.684366.3.579.2. Unknown [id number] 2.16.840.1.373955.3.579.2.531 Plan of Treatment Date Care Activity Detail Author Start: 2027 Pneumococcal 0-64 ye ars Vaccine (2 of 2 - PPSV23) Pneumococcal 0-64 years Vaccine (2 of 2 - PPSV23) [facility] Phone: Start: 12-30-2025 Lipid panel Lipid screen [facility] Phone: Start: 05-14-2024 Adult BMI Screening Adult BMI Screen ing [facility] [employer] [facility] Start: 05-14-2024 Tobacco Screening Tobacco Screening [facility] Start: 07-30-2023 Lipid screen Lipid screen [facility] Phone: Start: 12-30-2021 Creatinine measurement Creatinine mo nitoring [facility] Phone: Start: 12-30-2021 Potassium monitoring Potassium monit oring [facility] Phone: Start: 12-30-2021 Thyroid stimulating hormone measurement TSH testing [facility] Phone: Start: 08-29-2021 End: 08-29-2021 Patient encounter procedure 08/29/2021 Office Visit Oncology Consuelo Delgadillo MD [address] [place] [address] [facility] Start: 03-24-2021 End: 03-24-2021 Patient encounter procedure 03/24/2021 Office Visit Pulmonology Teddy Fam MD [id number] [facility] Start: 02-14-2021 End: 02-14-2021 Patient encounter procedure 02/14/2021 Office Visit Bariatrics Mary Lou Power, OPTICAL MANUFACTURING TECHNICIAN - ELECTRICIAN [employer]IFIER MAINTENANCE [address] [facility] [address] [place] [address] [facility] [place] Start: 01-04-2021 Influenza vaccination Flu vaccine (# 1) [facility] Phone: Start: 05-19-2020 Creatinine monitoring Creatinine mon itoring [facility] Phone: Start: 05-19-2020 Potassium monitoring Potassium monit oring [facility] Phone: Start: 07-30-2019 TSH testing TSH testing [place] [facility] [employer] Phone: Start: 06-12-2019 End: 06-12-2019 Patient encounter procedure 06/12/2019 Office Visit Pulmonology Teddy Fam MD [id number] [facility] Start: 06-09-2019 End: 06-09-2019 Patient encounter procedure 06/09/2019 Office Visit Bariatrics Serafin Shearer MD [address] [place] [address] [facility] Invasive Bariatric Surg Start: 06-01-2019 End: 06-01-2019 Admission to same day surgery center 06/01/2019 Surgery IP Unit Serafin Shearer MD [address] [place] [address] XI ROBOTIC LAPAROSCOPIC GASTRECTOMY SLEEVE, ENDOSEAL [facility] Comment on above: XI ROBOTIC LAPAROSCO PIC GASTRECTOMY SLEEVE, ENDOSEAL Start: 06-01-2019 Subsequent hospital visit by physician 06/01/2019 Hospital Encounter IP Unit Serafin Shearer MD [address] [place] [address] [facility] Start: 03-06-2019 Annual Wellness Visi t (AWV) Annual Wellness Visit (AWV) [employer] Phone: Start: 2012 Administration of varicella zoster vaccine Zoster (Shingles) Vaccine (1 of 2) [employer] Start: 2012 Colon cancer screen colonoscopy Colon cancer screen colonoscopy [employer] Phone: Start: 2012 Shingles Vaccine (1 of 2) Shingles Vaccine (1 of 2) [employer] Phone: Start: 2007 Screening for malign ant neoplasm of colon Colon cancer screen colonoscopy [employer] Phone: Start: 1981 DTaP,Tdap and Td Vaccines (1 - Tdap) DTaP,Tdap and Td Vaccines (1 - Tdap) [employer] Start: 1981 DTaP/Tdap/Td vaccine (1 - Tdap) DTaP/Tdap/Td vaccine (1 - Tdap) [employer] Phone: Start: 1980 Adult BMI Follow Up Plan [facility] Start: 1977 HIV screen HIV screen [facility] Work Phone: Start: 1977 HIV screening HIV screen [facility] Work Phone: Start: 1974 Depression Screening Depression Scre ening [employer] Start: 1973 DTaP/Tdap/Td vaccine (1 - Tdap) DTaP/Tdap/Td vaccine (1 - Tdap) [employer] Phone: Start: 1962 Hepatitis C screen Hepatitis C kojo franz [employer] Phone: Start: 1962 Hepatitis C screening Hepatitis C sc sagrario [employer] Phone: Start: 1960 Tobacco Counseling Tobacco Counselin g [employer] Home BIPAP or CPAP Home BIPAP or CPAP Respiratory Care Routine Daily until discontinued starting 06/01/2019 [employer] Phone: Comment on above: Daily until disconti nued starting 06/01/2019 Initiate Oxygen Ther apy Protocol Initiate Oxygen Therapy Protocol Respiratory Care Routine Daily until discontinued starting 06/01/2019 [employer] Phone: Comment on above: Daily until disconti nued starting 06/01/2019 Surgical Pathology Surgical Path ology Lab Routine ONE TIME for 1 Occurrences starting 06/01/2019 [employer] Phone: Comment on above: ONE TIME for 1 Occur rences starting 06/01/2019 Problems Active Problems Problem Classification Problem Date [...] aftercare (1 source) Drug therapy finding; Translations: [intermediate card tender (current) use of anticoagulants] Onset: 9 12-03-2018 [...] [Syncope and collapse] Onset: 1 02-23-2021 Episodic Procedures Date Procedure Procedure Detail Performing Clinician [...] Phone: Start: 06-01-2019 PATIENT STATUS (DIRECT) SERAFIN PRIYANKA Start: 06-01-2019 Level iv surg pathology gross&microscopic exam SERAFIN PRIYANKA Start: 06-01-2019 Glucose blood reagent strip SERAFIN SHEARER Start: 06-01-2019 Level iv surg pathology gross&microscopic exam Serafin Shearer MD Work Phone: Start: 06-01-2019 Glucose blood reagent strip Serafin Shearer MD Work Phone: Start: 06-01-2019 TELEMETRY MONITORING SERAFIN SHEARER Start: 06-01-2019 DIET NPO, NOW SERAFIN PRIYANKA Start: 06-01-2019 FULL CODE SERAFIN SHEARER Start: [...] SERAFIN SHEARER Start: 06-01-2019 NURSING COMMUNICATION SERAFIN SHEARER Start: 06-01-2019 TURN PATIENT SERAFIN SHEARER Start: 06-01-2019 PATIENT STATUS (FROM ED OR OR/PROCEDURAL) SERAFIN SHEARER Start: 06-01-2019 TRANSFER PATIENT SERAFIN SHEARER Start: 06-01-2019 Level iv surg pathology gross&microscopic exam SERAFIN SHEARER Start: 06-01-2019 End: 06-01-2019 Laps gstrc rstrictiv px longitudinal gastrectomy Serafin Shearer MD Work Phone: Start: 05-19-2019 NURSING COMMUNICATION SERAFIN SHEARER Start: 05-19-2019 Assay of nicotine SERAFIN SHEARER Start: 05-19-2019 Basic metabolic panel calcium total SERAFIN SHEARER Start: 05-19-2019 Blood count complete automated SERAFIN SHEARER Start: 05-19-2019 Prothrombin time SERAFIN SHEARER Start: 05-19-2019 Radiologic exam chest 2 views SERAFIN SHEARER Start: 05-19-2019 Ecg routine ecg w/least 12 lds w/i&r SERAFIN SHEARER Start: 05-19-2019 EKG REPORT SERAFIN SHEARER Start: 05-19-2019 Radiologic exam chest 2 views Serafin Shearer MD Work Phone: Results Test Name Value Interpretation Reference Range Facility Wound Care Noteon 10-28-2023 Wound Care Note [id number] #1.00[facility] Wound Care Noteon 10-21-2023 Wound Care Note [id number] #1.00[facility] Coding Summaryon 10-16-2023 Coding Summary [employer]Base 64 XiiztkqfVDu8zWh+PGhl YWQ+WZ8HQYQgY56qyKWw oH8oT1FAJRfJHxybIMEH WHbEVbAxiiFyAL2puLOl ZXJu IC8+OW6iXHIiZwbobUNk r2H4uFS9Z87pra2uRHwf iQB7GLZhTwBmwjyix4vw jLb7HHhhQgqgIhKo SMOdtU90TVG6oT00Gf21 oBOzsBZtn9fjpUm7GjSn YAGfFOF2gUvxSEcvo6Hb IECiU14veRImf5Q3 IGNvbGxhcHNlOyBlbXB0 lH2eHRybcnfxm8bhjknm Iuw5ml21dOPlx7Z6mMZ1 R9PkunF3NFKilMHq AmjpyJFDmK8nlsela1fl ekqhOdEdRFNuFMf4FCc9 VAPstRmaFfHbIJ83NYY2 UKRqjsDvQ5QeWOGq oDsrDqR7b3T7Zn4FY2MG HmwlV5VRLSEQVAmiiKW+ XZ43dk94N0IoMhxuAhf7 AWUhJCV5zSR1gF6a RILxPBoen6C6ePA9G5Tz bdPatx7nl7fcTXVcFVnk M69maOUmy4R0XJUwoAN4 SBPtcOgpWbHmtV27 Oyc+MQKycBnvt0RqFozm m6yiy7dqnTb2HarkLGJn mxZwoCesTBQ3e9CxOj5c VJIesFL6qWO6yK0z BvMlQoH1WLxyC460HoMn zPGiZdlaM52eN3NmoTS+ NHQgVik2GBNxyFjuWP0i S7GzSDUqhdbdnHAw vLskOO0aRGBgsspmWJGu jQ4oQJVhU1q1PbOxCrW4 YTnbD3OjJCIyjqynFt67 aB1gIqGrYcQ4JVkj X1TkssP4JKEimEMdXIil PIZ8N36tc6C8AOJwNNZy KSP7vUB4hT0rgCkrkduk bGVmdDsgdmVydGlj JFwhJJyaO003BZUfsNjn PkNvZGluZyBEYXRlOiAg MDYvMTIvMjAyNDwvdGQ+ RJGcZBP5pNnrNSQs qGMyFHxnRp5ltEfrfAhq KA3iGUWmacqpPHOgxO1g HTFcqVGcvAilCE6nPFOi vslfl614NlVyABN9 AQZxdGGwY8KfdJ3pPkTy MLBaSRGfA1QhlHOyBNwv R981OSbbJaK5ARSqyfQy G2PsVGVkbAihUuE5 t9P9Sr0Bc1QlqapzU2Xg iEUrPoRmZuipYPu5B4Gp PjwvdHI+ZL27OTHhZA35 LQy4QMY8cMxaEAjm LTEvC9RocQ1lXoTpVJTd ZGRkOyc+PHRhYmxlIHdp ZHRoPScxMDAlJyBzdHls GN2iTn0kEHYcLRIv sXimvULiGbKti6nmPNCj EVpwVK4jgWpmF7LdgOO7 RPLkh5x6Qh46G62hD1De dXA+XAWuhVF2wWZ6 mY0hIkSdLoS9AEoxM643 RjGzvPSfEwkzu5izs9mr wLq8DgY9KYFcvaBjyBck EMY4i5WnNn85H61b IHdpZHRoPSIxNSUiIHZh aQxfzo8etG5iMy6+PGNv ySC9zEJ2pM7uStMaQvE1 JFtmZ629SmUzyNHt Fzkmg6kly2wrmIz6KpWk VMOfhyMlbUtyHPX0l1Xg Xm13A5JixPyfv6MqXpy9 ez33eXGag5A9uMF5 D0XyIQNpgnsgrQJneHsa ME9uGVCjhmgeUJVfhM0j SMBxP4c1JbKbXiC4DXex M3ZghmK6MLYtwYEt UZNlkCZOxU7stvynx5of legwQaRpBCLgSNm3XCo8 JOOmxJefFbGgYWS5AgX8 PAU1cKNwvM6opWet ddojgJ0fMyx+UNG9dPEh jDWIQN1bBvwhbVP+PHRk VMI4hPvvRImlDYNmcJ5s XHZzU7w4IdGgNlR5 CXtdS8TbvpH3JIFrnVSt FAYpjXMUxW3gkcsrw4vv ugqzQnFpGBFjBEp2CKh0 LWFsaWduOiBsZWZ0 UvH4ZZP2fJDwwN5raYgr omkvhP6zUov+QmlydGgg JLA8NHj4H3GcFrm0ROTw wIyyTN0drFUqDFfe Fm9uvMkijOpzUA6vJHTu xtmew983DiViy3pqTREr bQNuOFbaJOF7W14bu4R0 PRRrCARoXRA0xEG7 mW1dpTpmwtcswIYohUif rsYodYmiUVueLCreJ712 FTTkaPqdElUnQWd2Z6Od Eza7AGJldOohVE0a hDAiWHbjWm2tmKfugSxd HB9dANFbutjmi975LhBe t7eyUQHqbKZdOLwkFNA1 B52vf0E9HTQgZJCs GMK4tNG0qQ7zgWiihbrv bGVmdDsgdmVydGljYWwt NWeqF583KGCklOhoEnOe fVj4F9ThSdn0ZCBm tWzsOL9rvWKlHHqsLm7z yPxelAofQC1xJIAtljvy c539UnXyy0zaXASqtRPl WTffKKN6C38vb6J0 UPLtJROyOSS3oMS2rI9j bGlnbjogbGVmdDsgdmVy tWjrNEjnBMlaL978JXNi cDsnPlBhdGllbnQg KCwtEVg5O9YhTfinwWX+ XR32RCInJW53vJLadBLm v3zurLs5RcJaICLjOTC8 oFtcSEmax4PqHZWo U25jiHCxf1H0TPCmkTfa vCGmVqXwbNH2wN4uMLua mfkwb6pvdydpMuiwi7cf rq12nG28H78wHPpu ZHRoPSIzMCUiIHZhbGln ng6jsX9lJl1+PGNvbCB3 rST1tI2qYCVcKyW2UPyf D298NsZdpGGcNyoh q4kpt3rteDv8DwI6HERd egHuxGhqGFJ0i3ZqJg54 Z46vZCaiKXFgGGWpDZAg YNPjfUuamk4awE7r Ii8+WKCroYM9hNX2hH8l NbKbJbL4SPqiD765KyWd lRYbGsvnQ50xO3XllQC+ KBJmUlj7INCwxImo WT2szKBoQFmwOd4lHET9 LfEwFbJpXTnwV1AgKGCn jnihujyevCD8ENJrNCMx kP23Tg7sqDikAHDr aGCNbS0bchikm1jsgxnu QjRuWJKnBJj5BRn7RYNc pWwrNiJjUAO6ZoW7USF3 mYXonE8stQslcplw qU3vE8HxCSIodulwVe56 rW5iQwQtYfU6MFflTlj+ Q3TTQvouBQ6OW8wWEXlu SzwvdGQ+PHRkIHN0 qDtzLBhpPSVcqG3jBLJc U9z0ZkGjEkQ6JMrzU7Os YPDlbovcXz49mG4eCtRn SwR0LAiwA9AxsxK7 GCRnuPObPUmjGWR9U58v p9H8REMhARNvRJO7qMF9 uH6uaJflphfvxLDfnKcv dmVydGljYWwtYWxp W497UJMpmCmdGdPsJyQ2 IrQ4PdX5C1ZiGzm4HPUi rZskRT4gdZWaZCfhCw7r eSfqiKlcEN2lNXJe hftbXSHjtY7aMEBfuZWf zSdvST4lRQNsqkwbo720 HiRbCDS4DSOjbHDiH5Ku wM2zGkErKOBkTYKe T2EtxIRsMNhdD456DVtn SyO2ONAbdvAnI0GvURSv nLbqZiG6g1T7Si85NGVZ ZWFyczwvdGQ+PHRk RDP7yGzzGYjbBVHcsY4k VDPxC4v2UyUtJzE2LXxu O4BeVKLtjfnuUo14tX0i JkKrTkW9GNssB5Bi dtM8KTSvqTJeMHbkICV5 V66qg1B1IUTzCAYqPOJ6 aIL6iW4zySszxxutyZFm dDsgdmVydGljYWwt JVdwY526BPFitAwxCy4K LLY9Q3ThCjm5WAFnlEdp ZL4rhKXsCNnuGx0ivIej gQufHY3kJIPlbrte FUKbfR4zEUCliZAebQrx OZ4eFQKwncjcy877ZoCt KEO9IOHhbMGsG9YwyR3x EvGvQSNcLGSfS6Cn iONtLLteO128HNenLwA6 BZZxhtQvZ0ApZYUiyZyb YtY3m1P2Vo7DJAgmfLZ+ SQ02pv60H4ZjYdmd Diu9MTIuJFQ7hTD4rA5x YJFtCDugy5D6mDJ8O0Bi ijYvyr2gz1cqESUnQRio U01ynIPeg6I7VKUv nBH6LYJsrUfpXcCrmW19 Oyc+IZCpwIvhr3PdMmbw a6xnd7minKn4LuPdEMCd rvZynIcsYOY1w5Mm Xm64T34rHVadNFKmDSMy FXUpMWMwsKgkzn3blO3r Ii8+XQVcoCC7wHG8uN1o TqBsXzT8XHgdV780 AoBwpFSmXenzl0ioa9av lVi1NnWpFDEakmLjdVnd HKH1s3LeRl22K8UwqWtw f9NeAjh4aw13lGSy i9L3tQI3I8EmNERsgocb bNSvsDeuRI8vSCCzwblw EPHnrK5fLIRwX3a7YaXy TvR9DXhtP1MouiJ4 OHCjqDOoHXZsaCYWuQ4l spndm6okmvwdHcQuKOXd UPg1IYh7FXPudSioGaQd UEW7VjS0LLG3xBNx zG1djQrtonulrX3oSed+ FEb9h3qosMLzQT6fiUS4 BO42BA22mWIfp9T7yNB8 F4WsJGJzkomorjli nOC6RHObRWDlmT83Zr7m qPbqKf0eJMRxCUB8MJDe mQSlT8VazJ7aZdLvSKWe RNHoL0InsUFkWYbb Z794XXaqDvL2BLUclmXj J8NqHEOqyOqaIoO8b1F8 Bh3WOD50NG06WD62lESl c9Z5sGF9T0QzXWIt dsuutluenQH6ETSfVRVd zJ49As1nxLbgNc8tCESq UOQ0RVCbeFCmN8KktW3w JdUoMEHkSNYuK8Ml kICkQYobL596OIkdBsG6 DJCzzbWuY3EkEMBkcZxn DhF0n6B7Er3ELm48XT72 TV19lKQry3F6rNR3 D5CpRBKobupjetswsTQ7 UZOzXKGcdY42Zp5stUxi Mw2dLCUfZKQ4HYNulHJx I2VnoZ0iIdNsDNDd JWYcS8JcrBMsHKmzM331 DWgyJdI8NLHoqdHuS6Ds ZTHnsHjbBkD0s9R0Uv5Y XRxyvwz9C3RhKzgt dHI+IH39GZYiZO90fLTg aLKmp5iijEd0RsThBNVx ZLP1oLfqDKsgu6BeCBHw U16fqWQcx2C9PMBl bGx (more content not included)... [facility] Wound Care Noteon 10-14-2023 Wound Care Note [phone] [id number] #[email or web address] [facility] Coding Summaryon 10-09-2023 Coding Summary HTMLBase 64 OmmqzqosZVv6aJk+PGhl YWQ+EC8ALETgI87fiURa zU0sQ1XWWYfQJiqxSFSR SIbQChEujsByLA0xcRTr ZXJu IC8+DQ7mEASmIvjevTWl m0U0ePM9N32yrz6iUMsp iDE8ETKvOjPgjipfk2nx fBy2PZqiQugrSbTv PQNxlA24ICE7rK54Xt48 gVBupLYxh4xxaPw3NiPp JSRqFIB3dMkeTZpej9Ss LAZxH16ufCFml8R8 IGNvbGxhcHNlOyBlbXB0 fA7cDSjxvwzxj4sqbppp Tds1hc88aRJkp0O0vPN3 Q7XydkZ5AOHzxHXq NpkmbZRCvA2ptzhwz3of ujzeQdIqMFHeZOd0CJk3 DWMetWctCrDiUZ27LGV7 TPAsbrYdL3HvGFNm iTpfUrZ3g7F0Rb7BU5ZU UxrzL8VTHLKHHRqopLX+ KV95ri38P1JvVvnkKif2 ZKKzXVX1wOV3hY2t ABOdLTtmi4S8cWL7K5Mz zlItna5xr1lyWOVmWAzp O91qgXJvi6W8FPIbdOV6 MICogFzvFrGrpA62 Oyc+YELeaBpzw5WrGtej u6mzf4zkhNm7LdmuZOJz wdRfzLdbLCO8h2QqJd2h CYMxyWL0yAD0rE8e CfZeZbJ0TQrmX604YbEr pUSiHlbpJ26yW9FbwQF+ LNRqGig6QJUbuIcuAD6m T9YxQCEfcbmppRHa jPikNZ0iAYYnfjwcQBQv yD6nKGNfB7o4RjXpIhH5 NJbcM8WsYQNlskudUd38 vJ8vXrQzZaN5TPoq L2DfhxI9SHShxFRvAIjj CUP2K51cq7R8YLIpPAJa ZIF0lQW0cS5taJvtertq bGVmdDsgdmVydGlj NObfMTrgE502WTFvbJht PkNvZGluZyBEYXRlOiAg MDYvMDUvMjAyNDwvdGQ+ OWXwNNC0sLvpKOZu vBPiPNinYe5zkRussJhh BF3vDAJnypoyYHHiiD3m QOOxpDFudMlfDW6qCZQg foemn874KiHtJPC7 QLHamHVqA5FpoN8yMnRi CKAqAKXvD8QwvUYiROep I962JBosDvD5ICRmufSw O5IpBDJdiLrlHvR9 y6S5Ja9On5EcdblxG0Ud uAKsXhFeSconUBq0M0Ob PjwvdHI+GC39UXNlNJ04 SHx1XBK4aMtlQWhp FNYhU0JbkV3eXrPaJWXm ZGRkOyc+PHRhYmxlIHdp ZHRoPScxMDAlJyBzdHls YA2xSa1xAWUaTQUv wDjkxNAjAhTcy9clYAJe BQlfOB4jvKcwL0AfjXQ5 WNUps2m5Zy54F66sH5Uq dXA+KXGgaVZ9dFF8 eB0kLiQnIpS1PFkfL427 QeXrdSGjDhvtn0zle4xt uFn0AqS3VXTtusMkqAom AML1i6JvBy92X34j IHdpZHRoPSIxNSUiIHZh gZhcde9cdZ8zDw9+PGNv xXY2rHT5kP4cUkHsXoB1 WSpuH881VsOctKIv Wkyxw7xko2anfIy9CfKo ITXhllXapSysCJU3h6Ko Cj71R7VgtZjxx6YeLlx8 ym86kIBgz1M0mMD2 R8HiFEGotdrvhZXkdWcw YI8mMRQcbdyqPCOesR0x DECkC1c1OeVqSvN3XTgi Z6VenoY5KSFqbMFo FWSajTRBaB2hgvcdl1ux rdbjQtLaNRPkREb9TCr2 MOZyuCwhMyAtAEU5RqV3 NHE7eAWxrO1ctLxi qpceuF0vVbm+VQB3iUGq oTEGUZ2tImxdyPY+PHRk ACZ0xOthFNlpLZAmxU1p ZUEpX8h2JqTiGpZ9 PQiuZ2RxksI6WEVwqQWb BMEjgBWNsP2rkfeuu0pp iyapInMuPXYuYWx2QHc6 LWFsaWduOiBsZWZ0 YhA7RLG1aMCoxB1dyMez hkufkS6wZhs+QmlydGgg DQY8WLu5D2XcTke6UTUb eYlbCE9hsITsVDnv Eh7wuJafbKhsEN4bTYXf odwxa176YlXke9vkCHJz tHPiVJbjCYS5Z11kn0K4 VNSgUONkASS8nMO5 lE8gnDafudvsrBMinJqm kaKfyItrWWhqPYodS618 KGKojHdiDmHqJSw3L6Uj Ngo6CQMjlZzzQX3m oJNiOXntRk6xqNtmcBaq UV1sMOGvwfzif566JfDh f0pqZMYilGOmKQwoJRP9 W62ro5K7OWSlAPLz ZMP9dTM3zP6svPiyphhe bGVmdDsgdmVydGljYWwt BFecM056YOQwbDubQeUh eGf5Y4DzLai3GCPv vTpjIA5knCHuINnjFn9l yMlrrQhxAC7qOCOcmagk x166OuZuf0feAVYkfVAn EExjKRO8O23qb9G1 JWJdRWBpNEL9wCZ8uI2v bGlnbjogbGVmdDsgdmVy pYdpSDbvDDmoA921HFAd cDsnPlBhdGllbnQg IJcrIBo5Q3PaDukmiNJ+ NK61BAUyDP85fWWuiQOm i2ttlCv7MiUuERCiICM5 vEchHMfun0ZgZMNg Z79udNIav6R3CCPkbOar vVZvGnAtfDO0zU8hGVrm uianp0vmxfhcOsarl5ig pe85qA84N10mQNdm ZHRoPSIzMCUiIHZhbGln kw7qrJ5vFr6+PGNvbCB3 mYI0uN2cVTEmVpU0KMkd T350PnXpwFGuDpnv i5shb9hngCg3FjC8RXJs jyHyyDpiAVC8a0WrHd29 H91bMKacVMDwBOFvOPHy UBHubRrdug3rsU4m Ii8+DFCqdDO2nIS8zH2h SmTaYtW2IUghD590DvGo rFRoJgatY26kP7PvfUL+ SQVwRdz7IWWhfQxx LD7ewEUxMLdeQx3gTSH7 OvJtQlPvGRyiS9IxVIDq gecqszloxCX9JQXvUDRl bF02Xk2owOmjCMHd lCSLsA8sakdri9akfxxu JnNmYFOsBSv7NAa3XTVf zTjrYiUtFII5SfI9JXX4 jKOhrS9taDyebusg xQ7pH8DhOFRrcnvzVx86 rM6dWtVvGsJ5BQnhVgi+ V2XTBhecQC1KF9eSGXsy SzwvdGQ+PHRkIHN0 eMbcCKyvVLJgzI2rDLFg P9c6QxMmTfH8GPqhG6Bz QQWdodliEx44qA5hZtBu FyH9DMieR0VlctG4 HEWxeUDzYTerUCW6O34k p8J3AAYxQCFwXNZ3uMK0 yN7vkArmncjdkHVaaUau dmVydGljYWwtYWxp X441CGIbtRgdLlPuLnP3 XgU1RdX9W5OlMcg6HQRf dSsqRK9kjNPvNTleBr8a zKvklGylBY8fKJUp mssjZCUwfC5sJICqlFFt kQmfXC5tYVYzinrbr661 YeAgSPE5RHNihFJtZ9Gr mQ1hCoLgBFPlTKNp F3LyjVAoYProK403XZnr OoE1ARDbueQnR1DgADEf vQxaKhD7s6T0Vh36MXJE ZWFyczwvdGQ+PHRk AKQ1bGsqBFqeTJHqdE3q WZRjE8j9ZgOyNyR7WKhk K0MeULMnoougIh83hX3t ViNfEsX4WAsfC8Nq zbL2GMZleHFiCWccOVE9 Z42gy2E6HHUyJEOgLDC3 qZU7fW8ofIuckvlkvXXb dDsgdmVydGljYWwt NFnzD395AYDxvMwpGn0V OXR3C0KwRyi0JFGwtXgz GT1ejGWnMOprYz8asOnf xMpaUJ3eNMUpljtl YBRudY3yAMSftZTztUac MK3vWMPluowei541GbMd MSO8MEWhcMNmU5KztF9s FvDkEWJwZNKfP3Jn fRNmJEqkB758GTloTvR8 OQWdsrPkK8EyXZNtyDcm OnA4n6E8Gg2PBZqiiBY+ YT24lh92N4EcZxok Urp9ANEvXCJ3oWF6fX9i URLcPHlha5I7gWJ7C2Ad wpSatt9ka5deEPYkYNiv G21diZHba8Q6VOKv nZN2UFIhiDeaOeFrcV43 Oyc+DYMbmJmss4QvFjen v5nds8uhlEq3YxNbPUZl fnOsmIfnRGR8s6Sv Jm13Q96aCQrkFVCmHGRx CLJyYKYneGfogd1rjQ4v Ii8+LAJluGX4tHM0mJ5x QjHbGaO5HJbkA557 YtEyqGHoCimub9wfg3go tPu1YbIpZVPucdPkpWpy LJN2v1TeFh14L8MzqBmy b8JoRqf7ci80wLNi d4T4zIE9R1TfICRqmhza pCNoiHllWA6xTKQlmbml PHYdeB5tKCIzD8j5GoPm OdK3QTimK5XvxxM2 CKBdtWUnMGZfkXHFwF3t iopga1rminqnWzFaUEVl KHc8LBb6OQWjcLkiUgBs ZYE0CjX2DLT1hFIx iM9fhBscqoofyC5eCke+ UQi9l3wjcFDoMA9vmLL7 PW44ZQ88hINcl3D2jWM0 W1NyDVWiwgvpepic hHQ3UMUeHTNvoT70Hz5t dXvnOl0aEJBhTWA6VQUn iLIsM1XorJ5hKsVkBTYx OAUeE3GxjYXyDSad M755GSrjPuV3XPLwqtDz I9RcJTXhaRnuOyK0e8Y7 Ee4VSM12JB31UW19hHQd r0D0bIC5B3BnXGSd xaaznmpldMT3TDJsJAQa rO06Ch1ryFqbRz0dXWHq DCB1RWRnkROmV1UzxQ7x YhOxEYWyFGIlB0Yx uYYgRSndM683UBxpXmX3 NUOyapXhL4FhPJUciUzd DvB0a0T6Gt0SQd81MN29 ZW69iBVnu2P6eNH0 F5CsCLDolxvjuseiiSW6 DFFhDDPecN19Rj3xdPuq Yy3jWZSlVPI8FSWbuNSj C0YdvG3bMaIwPGHd RQFoX3UbyWVhVLanB522 SDogHvW3DSWttbXeU2Yd KWTqdRlwHgA0p1R5Bu7L DGnoyym6O7DfUtrf dHI+HT53IZLjII15nAQs cHPef6fniHt5OoUgLPRk XJA8xBfyTWrro4JiIGXl V40sdZTlo6N5VIRc bGx (more content not included)... [facility] Wound Care Noteon 10-01-2023 Wound Care Note [id number] [facility] Ambulatory Patient Summaryon 09-25-2023 Ambulatory Patient Summary [address], [address] - Visit Summary For YRN RICARDO Age: 63 years Sex: MALE : 1960 Address: [address] [place], [address] Home: Work: -- Primary Care Provider: LESLY MELCHOR MD Race: White Ethnicity: Not or Language: [place] Health Plan: 1?[facility]ARE [facility], 2?[facility]ICAID [facility], 3?MEDICAID [facility] Reason for Visit: Three month follow up for med refills Prescription Information: If you have been given a prescription for narcotics, seek immediate medical attention if you have any difficulty breathing or any sudden status changes such as confusion and sleepiness. If you or anyone you know is experiencing suicidal thoughts, mental health, alcohol and/or drug addiction problems; contact the [facility] 26/11 Crisis Hotline -Text 4HNMX to [phone]. Follow-Up Information With: Address: When: KAREN ZAPATA, LESLY To [facility] [address] [place] [address] In 3 months With: Address: When: KAREN ZAPATA, LESLY To [facility] [address] [place] [address] In 3 months Future Appointments [facility] Appt. Date: 12/24/2023 2:15 PM Scheduled Provider: Lesly Melchor MD [address] [place] [address] [place], [address] Future Orders No future orders Additional Goals [...] 3 m2 Body Mass Index: 47.2 kg/m2 [place] Body Weight Calculated: 84.047 kg BSA Measured: [...] times per day, 0 refills authorized Instructions: MAGRU cetirizine [...] tab(s)(650 Milligram) (more content not included)... [facility] Patient Handouton 09-25-2023 Patient Handout Orthopedics [...] walking or exercising. ? An inability to hot walker items, twist your hand(s), or control the [...] aerobics, that increase your heart rate. ? Icphy-my-cfrfbz activities. These help your joints move more [...] above the (more content not included)... [facility] Coding Summaryon 09-20-2023 Coding Summary [facility] [employer] 64 JxyktuteJTt5eOb+PGhl YWQ+RJ2CXSXuE17lsBIu pE7gM2ZHOScPMnqjDMYJ XDfQHjBwbiVkTY2eyVNi ZXJu IC8+VZ9hSZYzTwsucLLq z2L4wHH6X73qcf0oBClc gLJ5KBOaDcAodjdyg6oa eAy2XNbyOfxeGlFp GPLduU27PVW5oL01Ed91 dTLwiBBkp8hvqNf9QzGk PCLlRRM8tMgzZEqjm2Wv BALyU14suVXul2O7 IGNvbGxhcHNlOyBlbXB0 bH7uVKhnpaogz6hhskvl Lrh4ts15mXDjz0Y7pDC5 Z1KjvrY6TAHnoRFf ChdxzILRgL0ymzvod6zm jlgvXuLbZPFySBs1ZGd2 FNDivBkhJuCsYE89IHF8 UXBfsfXtM7PsANYs tBjnDaQ0u2F3Ri4ZN7CR JafxO0ILKQJXZRiagNT+ EL18tb95X8QbTnouPen7 RPEfZMX9dTY8yY6a XFUvCHkqg3M9qAS9M8Be ayNmuu1zy9tvORBpVFiz N51cwTGye6Y5VURdxCC6 AWZnbZrrJcPpiC41 Oyc+DAWbqElhi4KoAuph g5bor9homUo4XqhcXAEb kcZvpOtsCWF5u5OiBc9l HCAskFX6wKG5bS0p UwKpPcW0KAdkS934MtUw tIDjBdjsF50eP1EkkCY+ FUZqUma8PUTveZsnWA3h L8AsQXPqocfxoNPz fTxaEX9jKWOrkdwkFRVq uW5wOUQpC7r2HqNpVxF5 APgvD6AyVKYmhrhoJr46 rK7pGkObSbR5FRfp Y8JaduR0RMDpnPGyFLxd OPY8C37hf6P4HNVhCVQh TEQ3pSG0pL3jwNhkkrgn bGVmdDsgdmVydGlj ZPqqZSocS923UHAngTkv PkNvZGluZyBEYXRlOiAg MDUvMTcvMjAyNDwvdGQ+ OZBiCOI6gJfeORDu wHFvHWlfNp1uyQjxwBan OE5hDZHhictlTTAdtP7v NGGjnMOndBtiSQ9jIHVp odxct257AnBiHMN8 IYVvwPNoQ2AouF1oEqCk QAUaCTLdR0QljASkIKuz P225RIwvGlP6NCRxksZj Z4FjWJAayYfsKfS7 l6N7Xk0Pj2MqsooiK9Aj vPBdWmXsHiayXJh5N4Jv PjwvdHI+LA20WDQeWJ01 DBx0PBQ9dCagLNez RNCaB9MpsU1oRfYnLDRn ZGRkOyc+PHRhYmxlIHdp ZHRoPScxMDAlJyBzdHls CZ0lAx9eMDLuQZUk xPsvkJIhPbEed1zgEGMh HHjpKI8dfTpyO2HyqIL5 XTPbd1f7Kz08M81eA0Rc dXA+QGPmzNE1jLH1 nX0nRcIdAjE3VYkrX875 ZcEeyKUrHrbjf5rwq0gg qUi7TzA1AZOfkuJohWfn CAW4m8OyDo74L56c IHdpZHRoPSIxNSUiIHZh qVluie3mqI9aWw1+PGNv nVZ1bLD4nJ5cIrPlXzK8 VDbhV359NlUdvSNk Pkjue2sbn4zwoYx8XdTz EAXouiJzaLxgHNR5c4Nv Mc15Z2IqoHdhy7TvFnf8 kz41iLXim0Q1eYU2 W2VwBODtnmifdMWmtYdg FD0yWMOrtmzuXXIhdU8l EHIhK4s1SkPgYdZ0QLzw T6CaztH4QFSgnGIi TIRjlBVIbW1iyqzzt1va gcyrUoGkZCBtWNq2ZBo4 HQCiaJqtUnXbXSU8EmY7 PIM4zGBntN3zxDkb msfntK7wBee+KFQ2sHJk dBKCAO7gJczhsWW+PHRk QNA7hGtuIExyYAFewA4k KDLnC7g9XlMrIcF9 HIuoG6MspuY9OEBcgUSz FKVogJDShO5zjfdzw3rz gyeoGuDqFPCsPFg8NRc4 LWFsaWduOiBsZWZ0 IvR5IGM5eYFkjK6ahChz lwovwM2iUan+QmlydGgg OGL2ZFd0S3KvUag5BZZe sZldZY6hdTOyAGfy Jq1caEandClhDN4zDLUm bcqmv218FhMqo2kyKPZi pHNzNPebENQ6S77vw5B7 SSRsJWBbQCH4iAY7 zG3hcAhekzuudOIcqNjn izMuvOuvDUfdJUsoI729 YCAwePqaLfJtAYt9T4Na Wgp3NQUnuOocEC2r sERgNFoeRj1lgKevjAco VJ8cKEImrcast925YeRe d0cqKVYdxXVrBMytWNJ9 R85ls8E2TDApAXVs YYU3bLS7zE2ygVhmqxps bGVmdDsgdmVydGljYWwt TTvxA427FLDktAwyIyZn mIj6Z5VcVjs4XEOv eBwbSK5ckEMmWCloHc2z iFtjkJqlJK3rLIPtvyne y915LaPgv4dwEMNkwRSd NDfsEPJ6H83xq5E7 MKPhMPNpIUR0iYL5fH1f bGlnbjogbGVmdDsgdmVy lBsaTZtpYEzdI858MUCh cDsnPlBhdGllbnQg XMtdAHe4Z2NwTbprtOJ+ LA83PUClEO22dHNcsTIc l4xjsOg6BpGoLIKcRYG8 kVqpMPvxr1RwGOUn X84vmLJqe7Z6UXNdkRdn xIIoPsLasYM1aE8lSRpg kukse6mplmebZhmck2cq ma98qI20M53iLVxa ZHRoPSIzMCUiIHZhbGln dm7xzG4qOc0+PGNvbCB3 yPM3tN3gQJKmNiE1SWqc C894NgClcRYfOsfx r8lkx9jwvCv8FnJ6KHGe wiCamQfaGTO0v6CgMg69 Y26mIEvfHXExJNKuKYOo HZGgaHwpsq5ypK5h Ii8+KQQjoTI2fCP0eA7e FpShBsT9ZNrrP221SkUi kONoSkrzB48mM6ZxmQL+ TGWfLmz6OYNhtTjk XE6nvYTlCCyyFu0vGEB9 OcMyBhFoXNfeI3JfBSXl wfvsqxzliRO9RPXmQJQr sO03Cc4zaUqgFLHl wTDAyA4sdvfvx5szzegu PwNiKZJcECo4ICn7APJp hDyhAfJdUBG1TyT6EQT2 wSPktH6hqCjszlhg pP3uU1OhTHPjlngnBq99 fJ4bVhJbXbT5AKohXaq+ R3NSOlnuLX3PR4jJVNvx SzwvdGQ+PHRkIHN0 jGsqDXewGREdfP9hNFPq N9h8ChFoViA0VCkgQ5Ub EDBujxgwGh43sY5sPoAj EzA4ZKxtT8SozcA7 GCNogDQgSIlkFBM8C25o q5S5MJObICJaOIF8iET0 jV4dtNknxqxbiAFbyMii dmVydGljYWwtYWxp D353KDObePumJuLePdB0 OuQ3AsE6L3EzQki6ELCt aFewTR3cnDGvYLurQj6w qVengGbkHK2jRIXh thbnNQNrfM2yXLZomIOz gYktUQ6wEMNsgcmiq073 NyDbJCY5MMBptAMeD2Yr gE9nGnZrSFBdMSBk M2TfhBBkXVutO897DLgp VpA8EYNzinTwY1CcHBSp tGidAiP6k6I0Ag12RHLZ ZWFyczwvdGQ+PHRk DUN4fQkeMDnyQXQnnY7z FMClA9h2WxDqTdN2NSew M2YhKAVyetwwKv91dN7z TsAkOrU2CEnoG7Tr yrC7EKUpxKYaKMxyBDR3 N72mu5N2LTBwEKVhANC9 mNT8gX3dvIjcyievrMKv dDsgdmVydGljYWwt RTptK870COQzbUfcIt8G GCL8E8PyLfi2HDZniHod KU9byQClTJeoSa5ltLjp jIlmHS7aRRPxuohy ZKCtmE1rDPBxdADgtHrr FF9qXSAgyguro576IqEf EHT0YZVinLJkX2YffN3q XfWxUOTgRKFmH5Sr tUMkRRhsR594ZRxlRbF0 REPpbbTyT6MiEGDetKpm CfM2m9I2Zt8QNHnzcEV+ KS06qg72S6YiSjms Rkc0QTJsKHQ6yEF4fP7p CTYiIBepc3A1yDX8V5Nf ezKxpe8hb9jaGLOwRGyv H76bwFZgg1D8AUVw wIX0YIKkuHdqOgYblG23 Oyc+KQDucWrsw1ThFbkc z3tvt5wgfYs2RrOuXRYw gfNiaTqkTRT0i5Dl Ji66E89bDKvtJHNsSRJk ZHBaVUZhdLvdyg0nhM2k Ii8+YAUwrUX3kKA3wT0n XqFbVfR9HIudB939 WzYwrMDsUewxf4gqp7zl vZh9KqTnYPJdftQhzOaw HIX0e2WfUi59I9QjeEvq c7BeXeq7hg67vTMz h8G1vZD5U8ZcMJNuiuod nXFlpXbwBE2tYGShuijo ETTpvI0tXCQcB8b5CjQs ZaO1WOrzI0CayyI9 FBXolHBcWCEdzLHLeT1y eamsl1nzsxpaUjXwUZJw MGn7TMx8FRVxvZmqPbBo VAQ4VrJ1HZR0hPOz uB4evIzkovlwwV8nBtm+ GNp5p3obcEZxJS3qfVG2 CK50SX14jIBef3D0uTS4 B1FdOXKtafdujqgd eGF8BHGwCWAskG08Yb7q zSjuUg7eMLAfEHI4ODVu iFCoS7BrgS1vZjRtPZVf ZSKiH7UycPSlJAuo P871GAljHyG7IAVrewWq R5ExYPLdmSrlZnQ7b4H0 Mr0CFC71WR22AG50yWUm d2F9uQP9F8QcPMEg jauyxesxsYX2YYDnTGJv hU70Qo1reImyLh4oZYGu UST2MBCglVUtG3PmcN1i JfClXOPkVLKmF8Zo oWXuXKmnU030KUosLaI0 MDPrngFfR0DmYCJmbDzy UdU3y5X5Id7NPn95KQ71 PX80nLRzh9C8eXK8 I7VpFAKbzpbbtkbyjMQ6 DCZnGZNqvE45Hf2bzPqq Vm0cHUVvPAL8PTKzlLVv V8PikU9fQgFdWHRe OYMzN8RnfRHcQWfbB391 SUjtNaF0MIIbzeGtA4Jz HIHvbLpcEoC9l1D2Kh4G ZPbjipi3Z7JiPibv dHI+QV86IXGrUF99dJGs mXAts5lxiLc6DxYcUQAx UWH5yOrkECoxx7CnZXFt G16ttNGab2R6CCOd bGx (more content not included)... [facility] Coding Summary HTMLBase 64 RcxcwcneCTy5tKz+PGhl YWQ+SC6BJEKkN63naPUh gT3bC5KGXJgFCscuWWXK RYtINqHxqwEjJZ4xtYVp ZXJu IC8+BH8eCMDjRcvslDGe s4R0tIS1R71pzq6vXFmc fVE3PPIfNpSofqbhf8xd cNv9OQywKdloGrAl HLXwfQ79OTO4dL31Tm78 nOLlsAEah8hbqKk9AcGs FWRuGIB4nXcaUFgoo0Xq ZKRnQ97seVKqx2C1 IGNvbGxhcHNlOyBlbXB0 oQ5vQFulxpahx2klokua Sqo6be57fTIay3U2vOH2 M2MtnzB2JWBgdMFq PyhihMFSnQ6atxhxt5ll vperHpVnPLZkLBm9RKb8 KUNftHhnYeOiEY64YOE4 XDPjrmQvC9QiGCVg wDqoFzV1f1Z0Ac3YA4CH TbirC9CGAUAGZVvpjAO+ JK41rl85M4BfUpthQxg2 HGDqVSO3eMI7hR5n UTEuDGzwu5W6vHQ1O5Rz vbHwxv6en0zmGHFeGQch J98lqEAsd1Z3HCClzUJ0 WALubVjeJqZtjP52 Oyc+VDVafRrkv5BfOxru w5sry3lgjMa0IqxwGRLf znInnFthZTK0p5TfNn4w SKMswOS8lTB5oJ6m VyLrCrA8MYjmM932BoVo mAHgHvxhE22nI8WrdKI+ PEKuVsb3XBQtjJduTN0d S9PcEYLgeihpoHMx lTavRE6aEOYtijkmWDZw lW8mAHNcB4i2AtViZlH5 UDqnI0WkWJMvvhoyBh54 vF5tBeKcIpY1UPxk E0BzcmD0QVZmkCYdLNce KXT6O35jh2H1XXChBHPz LAQ7vBF3fT7abFywgaps bGVmdDsgdmVydGlj GXbpGLpsM131JPInmBnm PkNvZGluZyBEYXRlOiAg MDUvMTcvMjAyNDwvdGQ+ CEGrYTY9oGehJQUl sZAgJZxrZu4mfCvzfDvb GG3iAJFcnhaeCDYovO5t OVWqdJYscDxoQH2rGSHf pjxzz221CjGpSCU5 FLAxaGWnP6QcaG0bKjOa FXVvVTNoL8UebSUwYMag J875EAsmAlQ6VFQttuMr K6YsSMHzmCdyMjG2 f0R2In0Qn4YcyandC3Im vOBrNwEnUhrsKQd1V3Zy PjwvdHI+IS58CAYiHP27 KMs1ABJ0gXwuBSqd QWCyW6VscI9jSzIoOZPd ZGRkOyc+PHRhYmxlIHdp ZHRoPScxMDAlJyBzdHls OK4sEm8nJUQfDLIh xAeotQUdMaIpu3rcKCKl WBsmLN2gzGiqC9DlzGC5 DCMxj9e1Ba37W31pD3Qq dXA+GEJbxGM1kJG5 cL6zGhViZyO6ZWujJ562 ZgNnqXQuXaeyh8qap5oj gDe7ThT7OXFmnpFxrCtf DWO0i9CxHw64O83c IHdpZHRoPSIxNSUiIHZh gQgypv3auD8zRa1+PGNv fBF2mFJ0lD2bUrLeUpV8 WIxgM471WsDcaZOd Qkuip7cul5vpuTj0RmCg FHZaaoTcbZdcHNZ3a9Bu Nw13C7WvbUqdr7ZuOsb4 ij26qODyc2H9eNL4 M4ScWGKddmzqjWMplQjw WA0wNOUpnzeeYAYnxO1e MTRuF9u2RdSeSxZ7CEhv L7QkvbA4QVWlyZVs NWVhhOCOwQ8xdgvlc3qb klsrAvWaQWUdZRf5CNv0 EZUjnShnQzNiJRI2VaZ6 NRU7pYJshE9izQdk sceocA3wUrr+QZP3vYZy uABLSK9xIffudLD+PHRk RGW4mKsaTFkqGERtpR7v ZJNpB8t5WzKgZiG8 WAuuY4FhxaJ8WJTulUWx ZHOptEFCrQ8vqexpc2wb bteqEfPbQFUuJUd6KXv0 LWFsaWduOiBsZWZ0 NgR2GBU0kFXgfK1whBck lzqmxF9iFtw+QmlydGgg EIB6YAq2C0StBqu8XARq xZuiMP2cnMZmCNdc Fs7mzNcgnDjiRU1mONEz cscvx318QjXov9rwSGLo jQWqUUksZEI6T68wg4I3 OYLpXBBcLLX0sGL1 pS1dtNmsulqmcKZdgTbl tqZkaIazEZjvMYglE528 RIExjSihNySmTYi5Q3Lo Ker2AHLcrJmtUP3r nRSpRAbzNx3gbOljmAnm ID5rUEZlscoxx496CsZr b6nhTPNdvAZkAUqcCPP2 T47rs6O2SMSeFLEr BWW8gLI7gL3avVwbrdze bGVmdDsgdmVydGljYWwt UDfcV766BQTsjFlbIlAz jKr7I6WzAym8OXIv zAbsFW6flBRkCWuaBi0k bRppgRciWD4sEBPvbayp c968WbKqe2ncALLjnCRi ARlbJTT3E82cj4B1 UFLvWSLhYZL6wFG3zW6z bGlnbjogbGVmdDsgdmVy sUdoKHxiDFraW770UMWf cDsnPlBhdGllbnQg QSbiBNu7E3JkHmgehCL+ DV44BOWwBF90mGFguZSa v9sdbGb3OiZnLKHtEPF8 dHnwGXtzk1YiPXGn W86kgSMbt4X5EGUqbYbq dLPgQaWpwQM4eS1lBDdx uqzfn0bfrsndOqeyz1mw ll90bZ78K78sLAxd ZHRoPSIzMCUiIHZhbGln uc9qaI2hIr9+PGNvbCB3 nBW7gR2iADFwEeD7YIbv O417RtGldXGpXybh o0umn8awrVk6WyF3OJTy bpOpfUerAHA8a3HlMf19 R92cSXiuXTZsUDCuREKm VHTzoSjbge5svE7l Ii8+HOCeuOO6yGB2kW6m IeJhYlV8TVmbI146XeMw qEKyEztuH50gP7GbfQY+ EOYqGuo7PAAlaMbp MZ0kkRYzWUlzGl6uWFB5 CxVmZoGfFGjoX1NsAQXj ubeeycjpvYD0SKKdMRXv qV61Is4auHuiIXGg hRZIqT4flhjon3acewil MnOjLHAeGLl2BKl5EOMh uYwcByVkRXW9SdY7IMB1 rZQmpS2bmHfulgpf eY2fV9MqKDZfnqhbEb79 uI3pDzJiZaI0RMuuUhr+ O2ISWvpvXC5SC0sKPWpn SzwvdGQ+PHRkIHN0 hCtySNykXOBwjW9bEWCh F9c1WpTsFtJ0JZscJ6Zs IXPhiwpgAv54cW1hGhEe JeO9KTlsX6WhqgC4 DPLtpBDbFEuoWJI9C22r o0C9UAEmGCHxCCO6dZC3 qC8gvXngrhmrcGBpfLau dmVydGljYWwtYWxp M026FYNzsHncTjXqGmM8 DmL5HoE3Q5KkFos3PUMu oDokSP0aaPSlTWgtTq9v wCmzuBhaAH3bDGKl gddoRXCqcV8tWTKdlJYy cAoiQQ7fYBYrjtebp904 NjXhXIJ7GELbvBEtK5Mi aD0hIpOlNSCkHGEq Y7TbrPBlDKpsY035ITju VjK8BYOunpCnQ7VdZBBy nNwkTvI8b3B4Yy70LEKU ZWFyczwvdGQ+PHRk EAK6wMrlWDkmORFbjN7p RNNqB3e1TqLkLtD8VYri T4SnNKAzzjfdGb67qX1i LrXyRxP8NMaeO3Gr ylN8ARPuuRKwCZryFBM8 K32yv9H8YJQePNVqWQN1 cJV5oI2ogDfipeqrpIMk dDsgdmVydGljYWwt PLdxS826ILYwyHbeTz8Y XII0W4PfNyy3PTRpbWqg JH8avIQaZCzrUn2ixWmp rRoeHA3iLYOxhdrz QVWabC5jZOAisYGmcRyn OZ1jSYTbfsiek525AjZq YIA1ZRLzhDPkN4SetU5x DiUvNCMtNWTrO5Ir zNOxARrsK255KDvfQtX5 EHIdfiHeS9IdGOWyzGbs NuN9h9V6Gt1VQAlcpZF+ PY69lc33D9ZhJwar Cxi6SHEhXOH2nZM9pK5e SRJrNFzgk4H4bYW9H8Bj pdUimz8fj7exRIMhTSni B32rmNUjg2F8XOJn bPM1VWXjdEnnTcHloI85 Oyc+OOQiqBqqf9QpLpzd v9soq2oubZg2ReUnBAAa oeZymGbuXYU2r6Bg Yl75Y29sNDybBLStESUm CQEuZLZczSvkcd8iyT3c Ii8+LALskOJ5uLR2tK8b LxZlYsC4SUuaE831 OiSyzZCeIcaid6fwn8nf rMj9TnHhFYFvcrKsqHou JPT3d0RoOn75S8TpmMhe q9GlZur0ja30lDVw x5F4kWF2K8RoWWFflavi pAOllVutGZ4fVTWepqzq IBEqbL1aFQGwG0v8JsMg MiR4QLfjX2VccbE9 XTYmfIMeJIIqdFRRtA4z mpftk7syciwvQyNzTECk NTu9SGh6CVYkjFjeQfYg CFW7LcN3JLI4pTYv yP0mcFqwonbgpG7gQoz+ JNd4j4lmwTZzHJ3dmDH6 XS83YJ83cSSbe0W2zSF2 M9QuNWIlsqnkicbw vVX8WVKhKEYleB46Ew4d kNyaMs7cVQKeESU0UVTg xPMdC4KesY7mCaIjVNUq KKRlQ9LjdFLlSCgz E942BXvgOcA4DGRoomJn S5RwQUEriLnsMzB9s4U5 Nq3LUM90CG71RY12cOLw q2F0qCV2W4AzSLBt qlcltjcdgIP3TQTlQUFg lD44Rk8ajUrxUf8eFPJv HFZ5JSZomBRlJ1AcsD2o GqRoQZNzZHJtH1Nw lLLgLUmnH945ERruCoP1 FIEcpnIlZ1UtERQaqLrl EuS6r4I2An3IRb30RX53 AT57fSOxw7R8pOE3 H4EiUMFlhlzwzyguhNA2 GMVlAKUkjV89Jj8qnAvp Kd4vMKKxBPP2EPYqdEIi D7ShtA2kXtRqKYXo UOLmW2DrcAMtDZbcK242 PMlsYtX1NGHrhxYzA8Au IBHksSfgGxD7e4T5Df4N CYxtpwt8B8OqEpbl dHI+SM07LZKsHA11tBBn jWDdq3mhjRu2FcUxIETi AHK8kLdmJFbmn5XmVQDu D42cnCKmx7P6IMHt bGx (more content not included)... [facility] Wound Care Noteon 09-16-2023 Wound Care Note [id number][facility] Records [id number] [facility] [id number] [facility] [id number] #1.00[facility] Wound Care Noteon 09-09-2023 Wound Care Note [id number]#1 .00[facility] Coding Summaryon 09-07-2023 Coding Summary HTMLBase 64 DuhwxqvcWAq0lPa+PGhl YWQ+BL3HPMTuP23umBTl xN8cN9KISTbGPevqNIZN WCmERhUuikYhUX8qqTIl ZXJu IC8+TH4pRAJzDxsjpPLh r0E9kZT3R89zyx4oSDmm sWX5OJMcShCtpftpf0ok eGl4IQosFhilDkYt WIXguH35IFM9hY54Cy61 kGTbfEWmk3lmrHs5LqNp IXZrGSH1yNjeRHjpt2Pj GURdH15lwCMrt9I4 IGNvbGxhcHNlOyBlbXB0 kI7yGFbtvrmbs4frxlze Biq8hd30eHFts1L7fTT7 Z9ZdykL6KDFgoIMm SklhlVNLvR5whiowt3qe layaAzNxFRXfJCl2BOo1 DAXacFddQaVoHJ86EAZ1 CHQpcgEkP1DsUXNp fZkhPrM4a4Q6Np7FS1FB GwsvX8GBKZVDFZdvzNH+ UL86dt97E6LdPrwvTzd6 LDJyWER8yIN9nZ2z CHMxCXwza9E5bVQ3B2Dl caKyuv1zi9seUCUiGCvr K58hpYFjo6T7VEIfxZE9 NKSvhCyeGdVpaZ50 Oyc+HUOgwHzja5SbRnke t0dxu8mqrNn8BgrlGNKb uhOcdOcvQXW4t4GdXq4c ONNsxNT6iAC3yX0r PvGzByW3WIkuX184PdXu aFSoYlgbQ28cR0CxzWT+ VRPiPec6QXPmuGyzQE2k Z2WeMHIkmyadlWTf pElbPU8kZAOnwvsrWVBs gP2yTFJkR8x1WuTdMvZ8 FLsmQ8LgTHDgipznFi10 dD3qYnZfMfA7SYgt Z7BkhmA0DWNhmBGiITwf CCL2N50lq5B8HMNxFRSl UWY5fNR8wG3clCifyxwn bGVmdDsgdmVydGlj GLpkDAfwE814CPZwyTce PkNvZGluZyBEYXRlOiAg MDUvMDQvMjAyNDwvdGQ+ LEVzVXA8oAotKIPv kCKtTHzcJz8emYrquDcy WG9aGSPwijufVNGseK1y OQAijSXgrRnxRA3qFCTa lreli075NlQqIVA6 NMBvzXOwL1NyxM0lTuNc SOSbQBTxI9UlfTPmFArj R336QQyqDpX1GUOejzBa W3PxAGPvsGvfCuF2 x8W6Ss4Wg2ReysjdB8Qw tAQzNxEuEvpzHUg4A2Tv PjwvdHI+MP15OLJhDV53 HJj4QMT5fSbsJGyy WELbB9HbkP9fXpZnHHEw ZGRkOyc+PHRhYmxlIHdp ZHRoPScxMDAlJyBzdHls WI6cIu4wLWSrMDRs hPwoxSXfExVed7tnZMNi QMrqHX8cwKsfT3GhvCE9 ONYng7h4Mz23X18mE5Ih dXA+MJXdlQJ7xRC1 jW2gJqFvWaN7CDznM501 CqCruALpGeskj6wax4wz wFr6BxC1AHKdyhHeuRin ABC2m1CzXt76F72f IHdpZHRoPSIxNSUiIHZh iQjvhr0fcS4uPy9+PGNv lAA3tMM6uO5jAmDoTlJ8 ROmgQ747RpVktEWa Bfgxt3aim5lzoOr1GnQy KPDgnuGrhHmtQSS0g7Lv Jy84X3RpsAxbs7BlPid4 rc70zOGkp7S9cAV6 D8CoORZupxorlGNbeMbf AC2tLFEfqhbqICAdqH9p QWPmU3o8KjDhFoT5LAxj F1AphpN8HYDcnRFh MWXjoTGCjG7iqbdzn8rd mwujNrLeBTAyJYj8BDp1 IJPylSiaXbOaXMG2RtP7 MPE5hBHwkS2cdHsv sdvbvN7wHoa+SED7aCNm kJXLOB8fEzvuaYJ+PHRk RVC5kVdwXPpgFFIpbB1m QCAwM0s2CwWcAjY1 YIqrI2RwxeW8VEOksNAe ACOinMVXbM3dpbltu4lv hlreEgHgBBRuKHe2BLd9 LWFsaWduOiBsZWZ0 UsG7WNS1kPRclM9diSwv fbipsH0hUgn+QmlydGgg NSM4TUd6C3SyLnh1ERLy uOhcHC1eiDRhROpc Lq3vrHdbzKyzTX4kZONz shvqy289QvLrl0phEIWo lCVeQPudHKA1P02gm5Z4 CYBiWOCwCZS2fLF0 pD3gnAeohaiulKVoqVhw syQorJkaNJrjFDzdD077 GBBanJjgIpWtYUj9T9Xc Ajc2MNYqsDncTY7w mWTuAJyoSh6gtSnmzVlw NW7nSIWqztdyz200RyPp b0ezSERnsQJxFLuwYNT3 B24su6O0TVSnJUDo XTV3nPQ6jS1yrIlgjnqn bGVmdDsgdmVydGljYWwt UAnoK603VAIktMutZfNp tCz7D3VxWum1XRSp kQibUJ1uhRXhDEhqXl0y pQtsbBqfTJ0wHYFqwmip r910NeGra7zzPPCppOQm EVjfNJG2A86tk3K7 SHVvSDGwBGR5hCH2wO5y bGlnbjogbGVmdDsgdmVy lSpaLAknKOfjE937WWLr cDsnPlBhdGllbnQg QQypCTs1A3ZwAmxcgGB+ ZQ13ZDQsMC44vZPdiPIr r7lxfJk2SvAnPILgQDQ8 tWrfYJseb6VyJLAw I27ndCBov5Y6JHTzrFah fBPjCoQwbSD6iY6cPVax udyto9wytoojFnmfm8gf bq61vA15N70mLSdg ZHRoPSIzMCUiIHZhbGln gm4srP0iSp2+PGNvbCB3 rQR8qZ1hZSVmZhT7GGhf J210RqQsqGBfEkjj a6lak9vezCo8PvQ4DJGd jkLvaWicDVL9r3PlGv57 W54zFYgwPOLsNHQeVOYv YCPxpGfgwa2quW7x Ii8+ZOGocLC7kFD7iA1i AjEsUxU1QObgU021SkFd qEWlPdhjC56lM0WbvFK+ HNAdNip1YHIcsIir DE6rtAJuZOmtHl6qJKJ3 AbHrUuTtEQsyW2VeETZi dtpqjmcwcPM9TCAwRPCg iP82Xw9ccKqaQBJi pFCTuJ7yqzpra5lpdlyb NjUbUGKnOYe3QOo6ZTSp hIneJoDlYQQ1GoY6DFN0 gJMawP2cyIvxdbsv vL4nX0HcANSsvajtPe93 yJ4nVsQhDwG8YRmqXiv+ S7YTXjwjEJ6NS8pAFQdl SzwvdGQ+PHRkIHN0 wTjfZHgkOJSwgF9bYWCr S6m1WzWxNzU3QHdyP1Pr FMQseuywEu18lS4vWiNk PsL0BBjtO4UlseU6 TQGdjSXoSHynXSF1F38m u8O8DXAqIRCrIEP0tNS1 wX1amVqpcivyvOLdmQwk dmVydGljYWwtYWxp A597SZMjcWbhIeUlVjW8 OmX8RjF6W6ShUvn9PIBx fIfnWL9nuWZyHQpxPa3t wCewvMhaRL2mHCBg udffWFSswP4iSWCxcKSl wAjsEB0hNGMzlrtme396 FvYkXFE2YIOjmMYzA0Kd qS6bMmFpLDVhIWEk N9IlhIYoPGjlE939ONsg OcX8JZTszeYmG3CkFNAi oDwkIaR8n4J6Ji59HSDA ZWFyczwvdGQ+PHRk DTL7nOcbBGfyTCJudW9m XUKiS9a2EaKsAlR6HFqw S3CxVAKrjjxyXg38hA8r LyGdZwD2UFlaE9Er quT0GXIomMXjKCuqYZU5 D98nv9Z0ISCmGACaYTD1 aKS6qY9raVgpbxrzkUWh dDsgdmVydGljYWwt ATsbK050UBZagBbySk6L ABU4C4ZjLfe7GRXwiIgx DC1pcITuBNrnXl4wgEnk mOokJI6aQDLnihxq JWPslB2sTNHlrQHwgGci FE0zBUVwpugsv322NpQm SEW9KSCqqRZeM1EttD4q WsZbDSPfQDXdE7Nz zXRtSRhcQ395MFkbOsY9 AZHxdiBbA9VnGLXlkMgh NaT6m3T4Xx0XEPqmlTM+ VZ08nl79P6LmXsaj Uer7ZCNwGJJ9eSO5lD6y PYVeQSqfv4V3jEN1V9Jz nuEaci7xu1omNVIhRWdw H09lzIBmz7H2QTDn vGU3RVJehYivFsHxgO81 Oyc+JJZizHzsi3KbGhxo j8ync5cjlHs6LzEmGWVd sdXbzDsgAWV7j1Il Jw82O38qGZsyNKEnTMDj SIReDDPjuLtjgu3thB2g Ii8+SGQbjAU5hTL6nN9r UzSoWkB1GAtbC091 GfKpnJBoUyxoq7mms6mz tGx8VcDeIARbleXgxKib KAA5p3LlPa09I3PgaSwd u9AgYsu0rt87wWRv y1U2eLM2C9GdRSYapssz dEApnUvvTC9qQDSkisnh VXTvwU3sJDPwC3v6OdQg BjL2EZcmS5MsujG1 UTJfbGUhBAXxmAXRtL4d srqkj1wkjsvzBaDyUJQy AZo8XIm7HJRxpVhgQuNl ECE9YdV3QEQ7cIZn yE5krCmfmqutuT5gZpf+ FXi5a7szwSQaDQ3ptAR7 AE66KR44jWJfq8R0sBC0 Z0OhNYQmlqrmmtyk yKN3ZAFnXRWfbA39Vb9y qAonYp0oZAIqVQE5LRFq yYFfJ5HcxE6fYkGvZPIv VKQfX1RkzPBfJXno O400BJbiNlC1ZJMueiSa P0HcPKVcjPbeYyL3c8N2 Tq9GKL68FM60VN22nTUm u9B5hUS5F7DdIEPv qktmilydmWV8MYHlCXMw tW20Ts8phZkkQk0dGBZd JNO5PVGdxATcO4UjbN0w FnGmPPBeXGWfG5Fp qHKhKMjwV245FQbfRnE9 NALkezLpS5FpQTOhwGoz PpS2c3B9Ap8EIi72ZY27 IJ04zDYbw3A1yGL2 V6CjBJQgmldegsgegMO3 RKDaFRPsrD18Le3atYql Bm8tDEFsBBF8GQXmbGLp H0DghZ3lGgZtHMXj SSYdN5LeaSRxNLhfY597 YZunBtZ5ZFBjumKpG7On GHHpqBywTmE4i4V3Aj2R SDvapqz5C6NsMick dHI+KB95EGKrXR90zJCx gRTew7yxxLb0BmTtIJEw NCC8eXizRZunl3ExZZWw Q74thZFno3O1EMFu bGx (more content not included)... [facility] Coding Summaryon 09-03-2023 Coding Summary HTMLBase 64 QwisojjrLSi9pTd+PGhl YWQ+SQ1LLAVkP41sdPPx zX5rB1NIXMmGRjlrVKDC LVxUUmKfdtCmRI5tcBTo ZXJu IC8+OA4eJAThLnrinCNl b1W8lMG8C56fji6kUBkl vPR7HBHqLiFkishjt1db aCg0OQwoVtyjJkEg PDJxfW29JSH6fR15Ke40 yXHymUDaz6nyeSf3WfGc XZItOQS6wOdrGZlgl2Wk NETiE79ibAFbu1G6 IGNvbGxhcHNlOyBlbXB0 jA0uZGortcolx5iurpvi Jmy3ny14hJSpt0F1dLS0 H6DoonW6NXQybMFw TxsojHIFqQ8eajshr4lc lqmeZkYkJREfBBh0LJw5 IKIbjJfyDmInUP54DUK7 FDGfdvLiU4FjGVEx pFsfYdT4w9B6Ln8GB9PG CuwzA4IHNVDOSYmqsOM+ SU14yy17E6PmGuzfVtj3 JCHvDAY5vCQ3nJ5f BSFqVGqsb6G7mAM5D0Kx baKbqe3mb7rpIRPtPWow O34ujWAtg5R4LJThvZG0 LNWdpSgxTtMpfO50 Oyc+DZIuzOyez4YmOsoz n1rdg5hksWs2JczyOFXr ogJvlSeeTTD6j7PeOr2k WZQtaER9bYY0fC7r GvVbYkS5DQjjN116CyUa lXTaYabxS58pJ4DcjWE+ VFGnZld9XYFxrOjtSK1d U1InQLRyidikmYGn yBxfMN2jAXSubqbwIXAj eM9lECXlD0s5RvBmElC3 GHkjZ9TsXGNofcxyTt04 vP1dBiOvAtY4LIfq P7IaqiA2EVNuoHKpFAcr GKW6U76eh3H2CXNwSFLq SFF4qOY5mU1jePcdsinj bGVmdDsgdmVydGlj XSrhLPbuV013ILWbcYul PkNvZGluZyBEYXRlOiAg MDQvMzAvMjAyNDwvdGQ+ RESsELO9vIbpXECl iYLhJKrePi1oiNwlfEeg DL1kELMjcqacGXCgeJ7p YRNwfAKhkUltLN9iBVPi eztkj073MoViVMQ9 GYTviPShD0GemR9rEgBh ULUeSKReX6WgtGAuTVhx V430XMdeFdU6TLUyppGw H7CjJRPqqXlbYfO3 a4H2Ti1Cr8JmyyuuX5Mv cNMgIkMoNdgkPDe2K1Ss PjwvdHI+PR34VRRaWK22 SZk2QIV4tZvaLYcu JEBxH6JzrB1kBsRzUGYy ZGRkOyc+PHRhYmxlIHdp ZHRoPScxMDAlJyBzdHls LQ0pLb0lZAXySWHp fPopgSUsJbDmq4guLVNw TGsxIC7qwZgvO6AzkYY3 OLWxq7s4Ju13Q67dP3Yj dXA+SHVmfPP9nQY9 pU7bCzRzFpR9NMhnJ610 IdXapOXuOdmoa9etd8gl yXh1SaO7UKZtrcTfrCou NUH3w2EqIz56N80i IHdpZHRoPSIxNSUiIHZh aWprcx3nvJ4gUx1+PGNv vYA3hLW4vG8vUiCiEzP5 MNvfA006FySerGIe Ycbzh6mnf6gogUz0ZoYj IQKrnrUdkDlyPSX0c6Jl Wc03X0IpcVhpm2XsGgx5 jy38lRWhq8Q6wBP9 K0YgBWAhyknpxMVbdNlt EM7bYPWzppwpLUOqgS1y UEJbE0k8BbWwKhD9JUkx H9SlkeF1BTZliHKr AYBwwBEPlX4kzesdi6ea azkxMhUlHUXsXIe7ECi5 HSSpmHpsJgFbBQU9QqY0 LMJ8hKYhsD3ehApk hiiabG2lJzc+INY2sVQu oMUNKM2oLguslPE+PHRk GFH1bBlyJBqaGVVxgY4r KTEkE1a8EwGhIvA1 ZIpeO5ZlqzA3KKYsaAYg KHGnwXSQmL6wcmzko8bb sxdmAiAcRCMzFYo2WQi0 LWFsaWduOiBsZWZ0 TaU4XKZ7jDBrbS4lcAjf mkwhcS1rCxn+QmlydGgg UGG7OFz0T4OqSjf3CJUw cDvsNU7loLLuVRnq Fr6qbMiblDtaAN8mIFNn ikcvt509XoPpi7pwWAYc mZPrWJjmBFA6E95ot7G3 FIWgGLTiAVA0mFI5 yS7fiBpvsqiytNDrpMay boIbxClbTJytWRxoX358 FQLlmFkcNpSzWIt4H3Gd Lwx0LSCetPzxCL2g nBYpNNjxZq7qwPepsRlp ZE6kLMYhvhnxk874VkZa r8zoPGNarNQsQQeyNMW4 V85re4N0URFjTNXj BHW2bCR5kA7muVsxgsap bGVmdDsgdmVydGljYWwt XPvwV543NMRucHuzHaXm cJs5S2XdJsw9PXNa jQgaLF5pfIGyTWbbHg2i kRgiiJzwMV8yIIMuimdp d373TvUpr4zkLDVzhMQf KRfnZZY7H79cn6J8 DURzCMFuNUW9mGV6wM2i bGlnbjogbGVmdDsgdmVy fRhaKEnrIDhqA458QMYp cDsnPlBhdGllbnQg RIbzQEx0S0VwTcosgVB+ QQ21NJXnFM78yEEglPYq m1gdwGt1OcIxTRWsUPL8 oQgvQMvdv0BuBSTc M07nwTYdf5H5RRRbaPqf cSQiBvBihBD5pW8vTFvr dtqcv7tmblcvKycqv4pm di01rC93H99eSDhc ZHRoPSIzMCUiIHZhbGln rh6apP4eTt1+PGNvbCB3 zKW2pG0nXUZjUeQ7FTsk V650GvTsqYEeKdng k1eqc4mwvTz8VkH8OAUf ujCpiXzlVSC6m6GgSz81 V11wHRgqKKOvQXAeHFPm JTPdkLaxet9joJ7d Ii8+XWBsmVQ4rNR7jW4o JaWgEuH3KGgxD695RxNg pJNxEqytG69gA6UjaOI+ FWTmTxh8KYHbiNdb TM6ruSGvQWrbKy1tKHU2 HrXuKvOfQKavP1MdQZKf djfskojrhJK8OYMvAHGw dA39Es6yzAmwPVRm nPCOhS6opysya1pvnzti XlDnJOOmTUh7DZx2MNNl vGnzSsJlWJS8UlW5UCX8 wLFjeT6dgHmksism cQ3vP6SkNUPofhazXg22 sW7sKaCaGkN8ANgbFvn+ E5QMWpiwGK5JS6mKWGds SzwvdGQ+PHRkIHN0 jZesOEcyAELcaD8dCNTb J8p8OpEqXcB2RNjqA5Va ICApnmoyOg93hQ7xHcWs ShZ5AHfoU0AtnrT1 RGJyyJSwCRneFII3G89c i7R4WCIbMKRvUEG5kJK1 qN9hwDbdavtxpPRpgLdm dmVydGljYWwtYWxp U972RWQuiXxnTtAvPwD9 KgW5RyH2D1AfVmj3OXNe hWkfUH8zhFGlGOnaLp6n vNxuySfhFM8bSLBz rodnAKXbhO9rSCAcdDCi uZrtJL0cJFKszuzyd391 NeUlLOG6ITVquCBkO7Ll aL3zNdUfOXIfYLYy V9PowGJuIQaeX073JUlb XjH2YERcydCxN5CcEQSe cNcjOrI2t4U2Xz72XWBF ZWFyczwvdGQ+PHRk XWN6xDuhXDjhVCXfsN0z TINxX0x6UvJsKjV8TPlk V6JbNVEyeapnJr75jY5x CvZySlX6YCgjL8Lk vfD4XCJwuTZvUZccAMO2 Q06kc5F3BVYiYNXqZPI1 qSX6wB3ibStotzcqvZIe dDsgdmVydGljYWwt GDtbS782JUDckFzkCx5W XQT3N6KoRor5BHFhlJmq RG7gyPUuWVmmEm8dqMyx hQptZS8pZEDkmlem XSOpxF0iGTPnwBMscWbd LG1hQXLbmzzdg118PjFu EQO5VMYbdALfB0BbnI2s LwUmZSJdQGPdF3Rj jYLaNFnjW697QAcbYuH1 QYEvlqKzD3JfKSGyhMpi GdD1t0M5Gp2AXCtfcXC+ RM80co22L4YcStmi Exp5LCLyFGC0wUC1eF7c JLOcMUrco8L8nEK1E5Rv ltWqci4se5ygDXVjHFyu P80bkJVmh8E0EOYp qDV0IKBdiEhbEiHdaB65 Oyc+XQSlcQapp6KmNgrk g2wwf8ynpSm9WbBsZOOr zjYfsAfbKYR4x0Vm Ft29P92vNVwvARPuJESc KIRfMLMqmIltrk0saK7v Ii8+KYNjeQF7hMD7eV1g NdBuXfT0NOpuA440 OlBpqZZhWkopw2miw7ln rZu3RmMvTMVufyXikOwi FZJ6i8HpWz44E2WmhVgs m4HeKtt3yn54mWJd d1J5lJW0W2OyKMWrjgrl fHLclYewEX8gZQCvkldi ELMxbF6vAJAoG1q8ZcEb DyT2EDgdE6NfmbU9 XDDpdNYvXKMqwGTYiD8r cjfdj1avyargDoNmCKNy BSe5NMx5HVQmlLuxLsEs XMO3LsB5WJK8fXJt jQ9jbXmfmnvfbM4wHmy+ HBw3q5nrxLTnEB1qsZE3 SY97UB94gCVmy5H0lPX3 G2UuBILxkallcpxk tOZ1ENPwUDLhqP02Ua1g vSloCm2tLIVgKOC1KHVu qHRuS0NjsP5eIkKvPJRj RABqD9VmaSJjBHnv B719FVsiJdA9BRJkzsGt J3GoKBYnmMuxUgD7b5L2 Qt8WAR28FX31RK98tJWn z7F7xZL0T1ZoLAUu jlwfqqyqhCU8BSHyMWYg pI87Cg3duSnrAy2yTNTo DPE1UUPgbDMpJ5YqfN7k SrBdBFZpIWEcG1Qc uGUdEVhoM057TLnbUzQ4 PLXezbGiV4MqPBQpkLaa XbE6y2O0Tt9QFf69GK55 EK68pINkg6W3fNC8 F4QsNQKtuzparacrkPZ6 OFWlUFUckG19Xs5woTdk Ek9fCZGzBOK9SHZhvJRa F5ByoM1tAlDcPCOp NCTkR0QlmIXuTPsjS523 SYplKfS9PRLnddHuN4Ib YIMijPgwJyO9f7A6Ys2G POxdzxx3W4OyIphm dHI+FU29NXAfCT80rQAu fEDwy6vzdRd3PxTkIZSc YGX5fTkxIVzql7DbQFNe D85nvBQzh1Q4RUJh bGx (more content not included)... [facility] Wound Care Noteon 09-02-2023 Wound Care Note [id number]#1. 00OTGTIFF [facility] Coding Summaryon 08-30-2023 Coding Summary HTMLBase 64 IsqmqclyOWx7gLi+PGhl YWQ+QX1BPGIhE64ejCAx iJ5nK2NUWHgGTcrtCAII YCtRKkEaymMhNU0tgHXr ZXJu IC8+GT9mURYxOufukIWu j6M2kIV8Y89ket3fMPkz cWK2PXSyClNpktaxd0hv kCq6FSxiSmrrCzWt MPCtnI82XKX7gT17Vk58 xWLspUWfk7zqlUm5UcWj MQIhBJD6oCwaULnhg5Qo VFEfB74viDJib2L8 IGNvbGxhcHNlOyBlbXB0 lQ5dXGwddrpsn3pcoocn Mpj3zk14nIFsk9X8wSH2 K7JfhwW8NMGngZKe ZgciaPMJbH0vrprjr1lt rdjvKiCyQLRhPXh6PHt7 TPTmrKlwRiSkBY59QKV7 RXRtaeNgS4UtOUCd jEjiMrH7y4V1Zi4ZF8XV QltnM9GONGPHHGyrpSB+ YN05tu85E5CwBzviRvh4 ADLqWSA5rKA7uZ3d NPFxMQhrr4A3jEN2A6Fe lfMrug9uo3xcTBUzVMvi Z29yqCVmp7I0VDPhaRP6 AGAwiZyiWtIyuE27 Oyc+KAXdmOteg4WjJbpa o9zhq8iutFl4JshhJMVs fyUbzSpsAPD5o0VhQy6z XQIlyZA8tHN1rO5a AuFhVjM8GBllS303TmIe eGWmThanA20xX6QazSD+ CXByUcx8AYIqgLtpLM2q T9NeWSZjgibolLOi rEbnHA0eVBGgpdbaJWKa hP6oXWKxN2o9TxYvTzN9 MUanC7CfTUVsysodGv83 hP3sCiYhLlJ2FEzu A7NxiaN9EGGilWPhWKdh FGE6X67bs0L6OUXeGFHb AJY2dJW6qK9gvLfabqor bGVmdDsgdmVydGlj CTzfLVjjL540YHErvDcz PkNvZGluZyBEYXRlOiAg MDQvMjYvMjAyNDwvdGQ+ RQLsMVJ3hXycFHZv iULpXTwdGl8tfCejoCad KQ8uQTZrykaaKSEciM9k UVQypGPhpAwxYG7mPKZb mhofw085PhOqKVA5 YYIxrPWzE9JujH3bHjYp WDHkDKRdK0LffASuWBxy C972PLdqAqI3LJYddwMu G2OwECCcnBpcJkI1 z9Z2Gw7Qu6StpgjnH4Yb sKDhKfMkPlrzUQj3P3Om PjwvdHI+CS67TCSrAQ71 WSy3WRM5tYyoMRfe XAGaK4WyfB4gMlXoBATf ZGRkOyc+PHRhYmxlIHdp ZHRoPScxMDAlJyBzdHls DQ4bBn2bITDuZLRd bMxidJRsVgJyw0tdVVSu XSkrKO5ykRkkF1OsoLY6 GXMbt7z8Ks46R33pN3Yn dXA+FBRlrBY0dCR3 pH2vFvYjSxI1WSgbY564 UcShnZLqXuyqm3bal8lc fTa8EkG4FBGvndQzpAmi QRH0z1EzSw94Z06w IHdpZHRoPSIxNSUiIHZh vMdsqt6wlN0yNd8+PGNv eTG9vIH0kQ0iVlCzPgQ3 HSwqM377KoAfcAQn Cxmqb0rav7dymWw5RqOa CPXjzlGxhYuaMHH1o1Bz Nl22Q6NphPlbt5WyLoy4 zs32sOTtx8Z3pGX3 N8KfJTBsnddlzJPppFrx BU1yMTIzzcikRVSbjM4w NZNvI2t2UpEkBkA6ZXnv M2ClspE0GHAqnAJz IAJthHGMrA7nbfliz6mo lngtLjHcQAQzNCp7DJf7 RUPiqApqSbNsHTJ8OwX3 GRZ1bZZilD2joMih ywfquB8iBjy+FDQ6gBIy aOPGKA8mGuvcbGE+PHRk JQZ2sQviAXsoGFMwmB0f TCBzK6s2WeEzZjW7 YVkoF1MfgzN2BZKxpPWq UJGixCEKxJ9iwyjif1mk mubmOmPlJAGhSZs3SPk5 LWFsaWduOiBsZWZ0 PcW6QPK9kQEynP0ozZvv rdppqG8yWbq+QmlydGgg RCQ3MVp8Z8YxBdm4FTUs lCtyFA3ibYElONds Ne7zeXxrbSzhUR4yXPTf lrjkj368PdXwm0prIARr fUReQBpyTWA0C33we7C8 NSXdOXEgARX4cCP8 gQ4vmOwumfyquFEjqJay qqWxzMusDIxxJFnjH552 TVPmsIkvXfHrAJj6Q9Be Hdd2EXNfgKgmHG8t lOOhNOqqTf7mfYxqrHuq UP2lBWEkrxwzd039BiCw h5neZVGrtWQrQYezTBK5 M00je5D2EWFpNORq NUR0gIP2oR4nhNrzbrgd bGVmdDsgdmVydGljYWwt ACuzP758HHTlvDymGqSi vEp7Z9WfLye7QSJd wOkeKC5rdFWdTNwhYr4e vCdmwMcsEM6xQKJurpov r579YsNwl5lbIDGraMGy DVmjAOR5Q89ai8Y3 QSKdRUWvRIN3fLQ1kL4n bGlnbjogbGVmdDsgdmVy jLlxVOfoXGzeU452IPOu cDsnPlBhdGllbnQg IFvyLUl1U9WwYsqjhND+ BT39DRAoVN11sESaiSXs e1amuKw6XjPxBHExURV1 gExiQYcty1PlNQTn K48zxMVhe9U5UAGdzSss zTIbXjOnvTH8zL2eQRoq wkkyv5grdgdbUggoq2qa aj67tD95I82jXPqs ZHRoPSIzMCUiIHZhbGln hg0brV2jTi4+PGNvbCB3 sME7bY9jNXUuIcS3MHck E004IpDwiDDsSsrb b1qdg5vmpMq4WfK1KQOl ezVzgLliLMU1q9EaZk81 Z01ePYgiVBOyTQKeGNUa YXQclFstnn8xpB0n Ii8+PVYyiQM7hQB6qD7d AuIkQuL3HGpcI313EaBy lCEtRvuxF16mD7MkoJL+ MOMiAcz0FLYecLsi BS3hnWUmGOzeSx3xWLO7 EyGdCkMfYHcuC3JvRXSu elkrehcstRM3ABPbYGMv lU99Tk1eyYktLFSy zLVTiC5aexnkz3titork MwHtSXJdEEl9EEd5SQXt hNaeEiHxFVM8GsT9BAM2 hKOuqC0dbHxqzqib bL1oO8NeUOEogiuyFl07 nH2uQyKoAgM4VKisCkg+ V8BLMjdiYJ3ZU8qEPBxf SzwvdGQ+PHRkIHN0 cVluAJqgJNJvvS7kZAOe P7m6YdNzSwH7GCebE8Xf SXDqotmtJn87qI0pBaVx TzY6YIhyP2KybbV0 UNUekBXvTWocQWM3S13c s4M5MBVpQEUsZCK9wTB5 pX9iwCfbibaekKZaoTyf dmVydGljYWwtYWxp S209QTGgwZegFcOsPmJ2 SiS7HmC3Z7LtKac4MBRh sHfbVT7gkCEuERqmKv4v pGrdwViuZU9cDCBp qnfsFELtdL5eRJAqsYLg wTjsZJ4kMCCobwyvx465 IkYhCKC8APApiLXxA6Ig nZ4mThAvNBErHMWt O4FygLCaPLtcT442EJmq LrY2LQOtjbNeW2XlLTGi hFbcYjH4w0X7Li26CAMH ZWFyczwvdGQ+PHRk OBB2rZbzVWtaNUItcU0y AANcV4y1ZoNzPfF9CKqz L0VsWXYmvfihSn22jD2c EsAqJeS1WPxnG3Ie teU6FJGnvSQjBXgkXWQ2 H29ik2K4YCRbCGBbXPZ5 cDN9lH4hjRnynbaqtRCw dDsgdmVydGljYWwt HMsxB940MQTqmKpjEz8K QIV0C3LnQmj8LJTrgHxr VL9zxCHfPGvaPl3imQck qGauPL1kBMRnslfc UAFrmV7zDBPhpJKnrCag QZ8yQOKuopahp577AmNc TES7VHDxmIPsC5XvhL3t DpRcHFTeSWScO8Fa eKPtNPocV740CEnmLzP0 KCLcmlFzJ4PpQAMrvYui CzS4x6V9Ql8YREjoxCQ+ DA07ru45F4BdYrol Uyn2DZZqGUG1lNW8rN3y RKIgNXcts1L5uCJ4Y8Ts ktJpap5nu2dqUOAqLRxo R47ziZQyy2B3QCIh bXT7OJReeUnaMoNvaT17 Oyc+GCOpjWixg7PbMarb i5bii3qghMy7FcHuQBSs xqZbbJnzJJT4e4Ji Vj40E89wIPnqMFQzKQZg HPJrVRYjqHqzcx8nrC6h Ii8+LSFqdED6pDL3jO7j CzUdNqP0BPrtA044 CwYbnWGaCvgbv5gek0am eSe1GuGeIIVybvAsxWol IBR7z3JjSd55D9FhsTde n1PoOab0om97gYHk g2L8vPN6A9RlRITksgbu hFDyfIvyNP6cXHDjoary EVAswP2qRDUvP2z4PwJm KnZ0GPgfM4AhizW7 PNRysPUvQSIzxIOJmK3d bxihm3kwljjdEhGsXNCn WPs3MRq2WSGqlJhxNbFx XIK6BmN3ZXG1mHRf dX1lgDsgkmpehM7iRwe+ GPq9t8sxcSTjUJ4vtSV5 WP94WL60uLXci5P7oCG2 C6BhKCLqwugyyfhl iAS7MEOvOKDgoQ56Ge1y gFefUi1lNCGhUPP2OQXv cOAgO4DqxZ2rReLeSNFg VWCzS8HpfWFvQDan C451MQglXzH1UTQlwoHe K2PeCNUvgDhzRrB5b3J4 Xb1JWZ65VY38AY50zWUw n2H8jBS3W8KdWDUj jdzzgdmwjGP6EJZrRRBa xA31Rz1foEydZq5lJOLl EPF2BCOdlBMhU8YssT2y DsCsOQVnEFWrU6Uk jSKdLMdlH174MNdoBpB3 FPKvhdIbI7HtASIlkKtd ZwP9u5S0Tb7VOu64CI19 TG02qATlf9W0oMG3 X9IiACMrurrryqpzrRK4 DDLqGCMlgZ31Ez0pkWqr Ou8jGTHzUHN1ADGmjIPr J8MhcU9uJuSbISNe ULViE7QijNWsDRsgR739 QWstRiY2MYRirnBhM4Jm KVTwpQsxAkR2x4N3Oc0T KNxdyks1G4YpRsox dHI+QW95BLLoYI42mSMt yRDxl9svuMk2QoCjKXLg PGI2bFuuNLhqy7JtQEZc S17lsKSco9Y6MKZy bGx (more content not included)... [facility] Wound Care Noteon 08-26-2023 Wound Care Note [id number]#1. 00OTGT[address] [facility] Coding Summaryon 08-23-2023 Coding Summary HTMLBase 64 HzorlzqvMMh9pBz+PGhl YWQ+HZ1TRHYyN78bqZYb tL0jH0AALBbOZzphUSCB YPjYGpDijxYvZK3voPEd ZXJu IC8+SG9bMBXvFiowwEUe d0E6eZJ9K60qgd8tPPlx tQX0SURvXjFjvejzh7xs eTk9QCmaYwymSmTe ZLQmjQ68PPT8dY69Ud54 aEMcaZLgu9kpjWd4SmQp KQMgGLJ5yCbwOZulc3Hm WXVxC80fnGIqn7L9 IGNvbGxhcHNlOyBlbXB0 iS5aXYdqywzyj4slpixb Wnt1lw77iZPbm7Q0yLK2 X1IuhbD5GHYzsFGl EckwgALZhN2qtshiu3iz mxccWxQhQCClMMc6HEt2 QBUrdDyhOuGdKY83IFV5 IKHpnzAjV1IyNAVg xDmpNlD2d3W1As0HB8UZ ZhycV6KMDMLKFCidqVR+ UY72wj14T8SgMwlfQft5 SDWhTDJ0uZB0pJ0k COIvTKpyh7L2mOG1L1Nb qoMatv3pk2rvABSgNVzb R14okRPkk6D5CVCayCF7 QSJzoCgmXfLlqD56 Oyc+VXOejTzxa6SbTsub g8goy5kikFk4NipcUTNa szYucKybYIU8f1VcSm0d FQBfiYC2mZK2kB8g WjNzShJ9FHdcL413IfUp dCAkNtxgF56mF7DtgZY+ LMSjLwu3CDYctVgxYN6l C9VzOBHlgxednDVd zXazSH6pRTQwtonzVVDt xO1kBOXuN8v7ZpUhSgA1 XWmuW8LkXNUfmelfCx52 mX2hAaChOcS7RLre W5QearI1WVGloOUtKYog ESL0R37qv6D7GGZfABMn VDQ5yHS1nM4avOjapbue bGVmdDsgdmVydGlj CItmYEngO681UZNszPwk PkNvZGluZyBEYXRlOiAg MDQvMTkvMjAyNDwvdGQ+ NITzNSG8kYekVHJx gVIvGDrbGn6wwWlloMss DC9pYIFsgepdXLSccW2f GWDmwEMunZggGZ4iIRVq ktzht618KyQxCYF7 VMHvmQPeB1OodR4xYzVp MHBrQWLfN0BuaNKqUFeb L508CGqaWtS7LZRdobVs R8AsECQdbCvxLsS6 a1N7Zp7Ak5AhbjzhZ2Jl iNOrMtReTaskOMa4F2Ve PjwvdHI+AS48LUInAC78 EFr8SHN4qHwqYDcr BDRyZ2HoiI5qEcBjDUAk ZGRkOyc+PHRhYmxlIHdp ZHRoPScxMDAlJyBzdHls QG9vGv7iTWEuAJPq sAqtqNUxIyGuu7eoRLIb XEjiTC0vhZtvJ1AbwSC5 GSVtc1k6Zv74I73rG3Jf dXA+QCZcoYP5jCX1 lJ9vAjMeRnZ1ICrjE226 MxTkkXFgIrtzo5ouk8wr sYu7GfK7SUEhxaKxjCns AOV9c7GzGq01J57m IHdpZHRoPSIxNSUiIHZh sJtsby0ttE9iHf1+PGNv aQS3lJU7oY9tVmOiVzB8 ZJgpR554FxTedMZv Iguxn2hmt2rmzWk6OaNw KFIzybNwaAvjXMR4l4Nm Ud16R0AgkElcg8PhEgv3 fv41mUOaf7H5dKQ2 D2CkSMZddhzpqUPczOea FK4hNVHozkulAILzdC2l GDSqA1n0NmYgBaR6NNyt Y8EzqjV2FFKbyVIc SWTofABWdP4jataur7fz okqpKkKdOGKfPLk4CZq1 NWZfsSzwZdTaKCE7NvP9 LFI7nBAvvK2dbWoy srnyvW2uSwn+DNH6qBYx cSRHDK4jMhantHR+PHRk PZV2dZfcDJyeZQSdkE5q YMDaD9o1VwIgNcH4 ZYdxV4PqoqW3EPPcoUQf ARSqyHEYhC5ijhyoq4bm jeshGnGeVPPxLUx9HPy9 LWFsaWduOiBsZWZ0 RvF9EVR2gZCacE4eqUod jjthaZ6rCxt+QmlydGgg RZZ9UCh5Z0MmCqw2OKHg cEspVV8zsKBoXVom Ln3kcYybbNsqVV1wDEIm olzlf759PpUtk9lqNPOb jPEoGXslJYA6C00ji1U3 CTIkZGNrEIZ8qPJ9 tZ9rjMovxktvyJEvtSic veQsdCuuOUmqUGurF210 EAAdiObsRcOsMLc1P7Aa Utl4CBSkhVorJU0c qRKnKVfiWi7lnBllbDir CX6aIBGqmogbb925FcLp t6ifLUBvcCGdOEkjMRL9 H32py3Y9QRZzJNTd KGF6uJK3lG1qjVhewlsr bGVmdDsgdmVydGljYWwt TObqD614AEZnzXuvScEr jVw9U0JzFhx2YZMr zXikKE2tvGAvJBkdCv3h qRgswLzjFE4rFROqtuwe g679CxJjz3fzXYJcaQRj MSirJOO0V22df0V3 PKBfXRQmXJM1eKX1yO5i bGlnbjogbGVmdDsgdmVy nVezVQouPGpjA766LFPd cDsnPlBhdGllbnQg YNlxFCz4A8CcKnqrfVU+ WA38YREuYD78fICgePTv s3rfaQy8QgTuYULyYBH1 vSakODbnm4JiFBVw E43ojWPmf0Q2NEMicZvf vJBuPhXvvTB8uH8qYRzy vzura4cctestKlgti9rn vu23xU35S20dNZpm ZHRoPSIzMCUiIHZhbGln dt1npO8yEn2+PGNvbCB3 nPA3zV6fEFFoOaV7LXtp K314YhMhuFYgXugc h4zgq4ietNv5KnF0XOQt orBwlJrzWSV7s4UhHr56 S01iUVwdJZQgGOCjUTWr APNdhNcflc3quK3s Ii8+UGIahAK2fIV9gK1s VwHnAkI3TLrsJ514YpLu eHFmPtpzV16tW5SfvFZ+ JCXjMip8XFUyyVto NL9zpGYbPJggKm2wBJU0 AtKuVdHvJJglS4IvRLRp plaakaoisMO8JUKkYAFg aQ43Wd2qlTvpFJVl uVMQjS9afrvkg8tmkstb SeRsMJNuVWj8ZXr9EMZx lOhrOfZgSTY5PyZ6ETA5 cKMttY2nzSzycwnr dI7xY0WmJUVtehhbSv51 tH2sRvFdClE8LWvjUam+ X9YGRqtpVP1OF4wOGAev SzwvdGQ+PHRkIHN0 fWnnDJgwTHFihI6cSMOh S6g8ExTgOsZ1MKbiG7Oi PUVefawuRz51cH1uCtXr BiX1JGnbH1ZvgnQ3 SKXuwEIgFJraTDS9E84u o2K3MTEvPRJnGHI2aYQ5 cY6xbZrmvfogcGJtnPpb dmVydGljYWwtYWxp O536WCEzdMcfAoCzRrT3 EmM9PaE7M5TiInl9FVWo rDuvVN8xkAUgWIvtWh9m qIytnKlxUC0dCKLg zlppKAMtyJ3pCYDtuEYr bNtcSX9fFGZyzoiom035 VxLiHIJ9DZDuiCHoG6Iq sR2zFzVoQQPwIXNi H7EzuVSuJOvqZ017QCgn UuQ8WVPmraEgR2WfDDFi mFliRkF0t9Q9Wx78JAVV ZWFyczwvdGQ+PHRk XHD5gLkzUAuhRIMboL6c WAZiO3o8XlQwSnY6TPnu V0YkRDSahtjcYz85jE8l WbAbJxO3GDyhL7Tb hoV4AKNzxELjWCcuNIA2 A18pj3C2IEPsYJItAAT6 yGN2kS3nlPjoqlmmqGOm dDsgdmVydGljYWwt TBdyC564AKNplBzcAm7A LLW6C0XqGpc3BDOqkDyc JO2hoXAsYCilOl8pvEst mXivQB7lAHSsdjql JGHgjF5pDEYsuOYsiRxj IL6qPZAzglsyk663TvLs QWC7HYAgwBIuG3VqhR2w RuUhFRMaWFGpO1Ur tRGvSNetL175JEdfScC7 RGGetkCpX7LtTZMvmRha MnR5a3N0Pa1TQGklhFU+ IT45dc79L9MpFgbn Sat4YOOvFMS0nJR2sC7p VFNdBWxbo2U4mHT7J1Pm mvLaxl5bb7jbPSOtXMvx B57xtIFxy8H1NYAv fCE9XLYotHcuUgMbvQ61 Oyc+NGPocKwiv3LoHhsn g7ecx3cdfEz3VaOoKAKm upQljYnhTLC3i7Cz Sv86N35uNXhmRMAkBCFt REHlKUDydKgfab0edZ2c Ii8+IJVvgIC2oSK9wU0m GvKwJjA3RFvrS711 QdCapJKoYfvnl1oak7bn lDg5CoKjYCWzbkSouDrl OOP3n8KgHs74O8OjgVdk n4YuPqs5tr36oCTk y3D8jUC9Y5NiHRWsskbh nEFyqKvoXV6oLYRkfrtv UATprR4hUCNgB9i1GtIc RrC6NPzoT2FxyzY0 NWUfhZShTONedIOOnU7w qcnzy8enrsigNwExMMWy NVp1CYz3WYPjpBezJzPh XIZ6HxO4CFQ6uYLv mD5akYnoibmhfU9bOgq+ BXz0f5ukvOPrXO0wzTX8 YQ38SM42wMSkj4M8fKR8 O4IfOZOfdxaahltk yAV4VBJsTRFjdV12Ep9b vQnnZc7eUKRoRTU5KCEg dPRiO3MyiI7iBfSaLZSa JHUpU4KdaCYlKLyy O094EYbdKvF9TYUbinRz X2TiGWMxiEwhKoH9w5G0 Wu9UPT40PW76TI32xUXm k9B1wXS0Y4NsSXVy cnefqlmvpKP5FSQmRAGo kD60Pf7ctVwsSn7lHRDn WOZ1RJGnqGQrX1DuqI8g HcQgDPJeERNnN3Qa cBFqAMomI194DSteGjH5 IRHhhjYcU0FpBDViaBwo BnD9f2J3Vt4MCj31NF00 EJ60hNMfo5K8aNU7 R1SrUMQvixczmlrafVT1 BMWpLHMlgU97Rz2qiNmc Ky9rUQTnTIB4NNTdlMXg N5YnyD1dYyFnZJIj JZVvK9QehMKgVBawL984 HHtqKuL2IBNjgwDuR6De SZOoxNxvVtZ6y8C2Cv6S BHdrhfj5Q0XhWyhv dHI+OT97KPPfPI09mWJz wKYql9fzlFy2SpAvZJIz LTU4sDblJXexc1SiIJFm F87qmHLsb7B9TBVx bGx (more content not included)... [facility] Wound Care Noteon 08-19-2023 Wound Care Note [id number]#1. 00OTGTIFF [facility] Coding Summaryon 08-17-2023 Coding Summary HTMLBase 64 NlvckonkMXt0vQj+PGhl YWQ+AM2JVEPfS67zkMLz wJ3rR8DBNPpEIcthQAVR CDyOXfZinuPbCE0fgXOe ZXJu IC8+HN6qQEBpTefpdRMb c5U9tYR3Y78qgb7aSNkj gPF0QOYiTgFompyrg0sn wVn4WNceOawlMhDc OIItlQ00ESK5hS27Oq37 cDSzhWKfk5dvqKp2RkBl NMDiPTH7zRcjHHldx9Lq KDHtG02bxPXha4G0 IGNvbGxhcHNlOyBlbXB0 aF1fRTadidcos0qbhhef Rlz4ab81oQMwr7V4hUR9 P9ZmasH1UGRevGCw CuebxJYRfE3fpwxtu4gg szkhGxJnXSTgICe4JOq6 ZQIciVxeSjEsLB40TTD6 YIOmblDwM5UmBYSh yMzwWdA7s7C8Ih6ID3GL LptsZ1IDKAKUXHkjhRG+ WW59sf47E8KyUqccRai8 TTGzVBK4oFP9rS4v DVBmFSuyy5Z5bTH0I0Ea khEbbo8zh3xsQQTfRIvd W08asPNpx5H7LHKlcOP0 PUVtkGltDfHlvQ37 Oyc+XGGmvVdck9UqZqnf b1arl7shzJn0TkvdGFJl tgRtxPcfBTF3y4EfAk4q ZLTaxUZ9rAR3vE4v EjCqDvI2BIfeE636MxZe qMNmTanyD29iY8IxrFP+ CWRrLai1FJDhiBraTF0z C3AiFQNhpaykmQIf zTneNV2hXVOzrlrtLUGp nL8dYDQkP4f4ZzTtKwH1 SSfyP6TzKBYcsxlqHg23 kY6uMiPlIiF5UEnx Z3GabnR1JEIcrOOdVVfg LWY6O77bk8T5JAUgNDOu HIZ4oTB3rV2waXebtrir bGVmdDsgdmVydGlj ULxwWFdnX571EEKvhZsu PkNvZGluZyBEYXRlOiAg MDQvMTMvMjAyNDwvdGQ+ RWAhGGQ6aOqnGAXy kBHiPYobNa2rdBicmFea FF4uBMOadpufJNElrF0w RCVblHRtoQaiFI2qNCYa qgpap923MeGdLGN2 CUWxaNJhV8FvfM4qSsUb SCViAAYtF2SquVUuVCff D890BAqeQiU9XUAyguUd U7ZpNCVieMgkRyX8 f1T2Vv3Lx2PjcadjL7Mn lFAhVkGwYoxhKNg4P5Ot PjwvdHI+UQ53CSSjTJ38 YFy5CPT8sTokEZfy NELfS9ErhV4zTcRsUKMu ZGRkOyc+PHRhYmxlIHdp ZHRoPScxMDAlJyBzdHls OT8cCi1hLASnHWSq sSyatGRtSyUpj2lrYPQu PRyyLK5ikEdtZ6TqbRL5 BBUfi2g7Uu47X22iI5Dq dXA+HMSrpGQ6sXS0 pW4nBcKfMuD4SQwaK170 ZsDoeUYnRjrzy4gld9rw hFc2RyJ6GCUmtpPkoKts NGU3d8JbSg20S27v IHdpZHRoPSIxNSUiIHZh oMjmjb1jrM2uEg7+PGNv xPP5cWX3fP3yDdLfJqH7 MJyfR737TyRbmKUi Bycwy5ygb1rhuDm1GaFz VLEgcmWlnNrrABA8u4Qf Pz41Y1QfkXxql5WiPqn6 qg79mSZjc6I5uWO3 O9ToZMTrznqkoNUobWlu PU6wLHLmmgmqPRMggN1t UTBoB8r6ByLeHjQ3MQhl R1VzzjL1LWJqkFUu RUOdvFBJsV1dlokfg1me krswHlOlNKEtNDc2AJt4 QUIzbQytQbBqBYY4YzM5 RMT3fGLqbF3rsQdz psnxlP2bAmc+QOZ5rBBj wYGCQA9pHpjtqHR+PHRk CRU2mUryVHlsGYVrsU2w BKRrD8i7CwPaHmD0 EBglI6MjbyV3IVUytVZx IGEsnFNZuZ7kdcogr0pv hdmbQgOpOTUpUEj7SQn8 LWFsaWduOiBsZWZ0 DoU1QXQ9uRTnzJ2ofTpc dqgrnS6yMgc+QmlydGgg FHV7GDl5X9TvQjz9OKKd cGrlBG2ytNFhUMsf Iv2ljAgbcExpQT8vUDPl uslon939LgLkv8oaOXYd hSMiGYuoXDA1P41mv9U6 UMGpOPQtOFR1tZG9 hJ6exIomiujorQYvkLkt dsZssCqzJYlvXYyeX712 HCDpdXrhFkMvOVf3O5Eg Vfo9EGBmgCpmQC9z qSVqWPunBh7yiBfzxAml HZ0eUABwiezmn269AcCp i7xjOXAsxUFgWHgeQIB6 B53fk1T5DXIgUTTk WMD8eWR5vQ1vfFudgpsg bGVmdDsgdmVydGljYWwt DEhvC589ZMIasMfuWwAt lGb0Q2FdDce6NDXv wKotNR5maVBaYYukKk0o hToucJpiCN6tTKZtcbtp t619IdLtd2tqXAIsvKAa UDjzFNS4U14sp2F3 ESSgTRAyHWJ9jII8gX5i bGlnbjogbGVmdDsgdmVy gDlkQFsvDZmbF415IVZu cDsnPlBhdGllbnQg QWptJLg2U2ZxZxjknLJ+ AL79INQoZQ16zONlyXRt q8ryhGv1TvWtHROqECJ7 dKlvLDeli6YiUHVu Q93hbIRmm2I4CHGowVgk bNVoAuYkeKG2sQ6sEPfz tkfoe6ouqigmGpyum9ji os66aD89Y02eXBqe ZHRoPSIzMCUiIHZhbGln ju9xpS6cWh1+PGNvbCB3 rYX8yJ0dXSOoUyJ4JXts Q419SeSyaDMrJjsp g2wjr3ekzUy2YzK1JUFp ipNojHpyJXJ9p9WvBe75 O76cKXnbTJHiLQFzHREm YGGxkLipfl4jrY4v Ii8+FRRvtJA7oWG0dZ5r QdWjLjG1ZTiuA039VxUz sTRhZpvsW09rC3CakOM+ YEGtKxs2UXXagIgg OP1jeIJwIKrcXs4rLJP7 VuInIfZkOWjsM9EkZTXe pykhnydttON5QDYkWFRb lS14Pa6wgMwrBWIz oECQlG3iyytty7cvhsok OmHcMRAjHVq0WJd1FFEw cVkrAcNlIUY9PkL8IDL8 wGMwpM4wyRvzpude gE5dV6GbXISrfnphFe45 rP4lFvPmAhC4OCyrLwc+ W4EPSgzfFF7KS5fXQVeb SzwvdGQ+PHRkIHN0 sAzyZZqnVMUqpF5jIWAm A1n7MoZxWmU1ICeqT3Jj OZAidmpqIv01mA0mIzKl UjZ2ZDmtK8JxbdA8 GSUtmCKsOFjhWSA2V60k n5X9ICMeKDEnGNS0vVU6 nS3tdEmnetsaeDTnpPcv dmVydGljYWwtYWxp Y285YVMtrEuwCbKpGsP6 PcI1TeH2R1ImKfz6LSXi qNisPS0bvJKdOKcpBq2q rYdtoDfqGV3pDKCn mskkEGRccE2pYYEgdSWk vRbtNM4vLPDffhace994 VyVcGXN8WTNgaWDwG8Ab aO2ePoHjOQBxTIMo R4YwcFHyALnnW856HTez OmA9KMTywjZmL9KuTMTx pLepIsW0s7D4Dm27XZML ZWFyczwvdGQ+PHRk UXE1rOvmUIhnLEBwuZ9f DXCzI3q2KgIhYhQ7MZmb Z4VcNCNtjiyuHy47bA1c OaZwUmB5RLoxR3Kk fyO0NQAajAVaUBrgWYI9 I86cp6G3ALNkLDFvOHF0 wBF1uI2keHqstvjflOUu dDsgdmVydGljYWwt RLwpA372VXLjrQvoOq5R KIA4A2PeEjt4EANmfRyc ET2gaYFwMHitDv4euKou cRfbZS5yJLHmefcz UJBpoY2kZKVjxWQaxQfh GN9vGKPjrjhou714OmBx UGE1HRYetHAiS2UntM4q TrQvYMIzQXMjK7Td gZAySXkmZ885XBjwEbU6 PSUrmlDwN0LjTJPatGom LxY8m8D1Un6IAPsqkUY+ FG23yc78N5UkMxmg Ywy8VSIePIR3nZH4kQ4u ZCHhCBlxs7A9fIN5M2Kx rxJcuk8yb9qvAWVpXGho Y15moJFtb6A9ZTAo gSR7MFVmnFhlStQvcK92 Oyc+DYYquDouc9UhIfag u4pgg7mtdAw1SdXiAWOk uiMfrPxePBN2x0Us Tx58I37sGAkfOWVnHMDh SUZnEMBhdWpoip9emT4b Ii8+EYBuqTX2tGM1wQ1r IxBgWlH6AZuuG597 IhBpnQOyTtpjk0xzh7vl jMy8LuNpVTMvyrMiyEih UWS3b2LuQe58B6JkyEdo u4SfIsv6px69eGEv o2W0bEI0J4OiWCIksuqq yDQbbMtoBI5dEBUmfvpd JLLitP2xVVFxI6l0PuHo SeK9UAbuO4AjooF3 DEUhyBKxTVXmgVKTcW6m upkks4lqqpotAnOoTTMm YUd1FAp1YUOemJorFjCj HVQ4QlZ4HAW0pXGh oN2iaTdxfumykD9fGxf+ XZv2e5cymADeWH3wbOM9 FN76SG00tHOop6Y3aKS7 A6ZyVKMzggkedyfa sSJ5YBVnABEbaH04Bj4m sJjqZj4cAZIhMJT5JZRn dGThH6WmaC2wPdBaWQNs THMnA5LpaODuFHeb R186NPclPiX5XCMalnLy G7UpYJUiyZbgRvA3d1U7 Nd4VNT47RE46CV11mBCe t5N6oTT3X4YrMLQv vdmoftgcrCH7UJLqGIEq lG69Ku2nsCdfWm0oAMUw GIV0QSDapBLyF7PqrI1d KhDaKKEnNQNzT4Gv aQCpEUkkI667VKeiHsB0 IBTqucAvG6SzURBivCxj GfX8o4X9Pc3IRh28OQ25 ZA15yNDfu5R2xRG8 T3SaSSKelstyfoujeYJ6 IXVrXBZezI32Vc2lwJcn Oh4dWAVfVVJ9DXUmtYJb N1QctX3eNtBxESTb SROwF9PmoEVoZHzlX787 EQupNhM8JHAdtzWyV2Mk XUWycGmkBlQ1c3L7Nq8K VIioett8R0QsJvyn dHI+EJ97XUJnDH58pLVn rTQal1bvzAg5CwHqSBBz XRH3pToxMChqr7BhMRRv J65xdCDdp9R5IKLq bGx (more content not included)... [facility] Coding Summaryon 08-15-2023 Coding Summary HTMLBase 64 FuwrnkmeFAa2kUl+PGhl YWQ+EF3REMObY89hyNQs lJ2cC6YFIWxQMqvpGMNZ OQqNUvEskmZpGP3zvVHq ZXJu IC8+BR3lNHBhPrljmYMz p3S9dUQ4E65jgd2tXZct bZI4WIWbXwJrowycg9qr cAr0OIcpDvdlUyMm RSGueX40DDO7gI16Os11 sEUryUJkk8spkFd4KgNp IAAcRJF4hYtpOAmuk3Rc MSNeX63nhIFvw1C6 IGNvbGxhcHNlOyBlbXB0 mU5iYOuytkeyi4ebdrtk Wdp5ju01sRNdu8O5dEX2 J9WhbwC2QCZmbVQn JcjdrAISkA0jysoup2bk aeeePyIoMXNaDTl4MIs6 UIOxdTgaGzVzMS43AUI7 JDTwccQiN9UtRSIc kKxyJoZ1e8M8Lj7RO0WP IiyoY2GIHSGGWBsmwDT+ ST94qa13R5AgIaknFlm1 YSVzLVE6bUA8uH7t NYWiQQbhq8N6eAE4O7Ch kkTrqn2xx6ujLKWfZPcr J77hkLCac1L4JEDoyMY4 YIDbtFvfWoPlhY49 Oyc+HSEjmGmon2NnDhce k1htt9fabCa8BhrgDDGv haYwwBhcZUP4m9NdCb4f YNGycYF2xDJ7pU7t MrSbJqP9OHgaR790OuUn zJVjRzmzN71sR2AwvKW+ GZAyXii6OUGegYpfZT8c A3ZeZIFpscqlwLXu bIdpVF4xLMQjnvtfDUXo jM7yKZVcB1t3LwJbWfM7 DBgzL3IiIIJdrmatBp24 dK6sCbNlWxS5WHxz J9HichQ7VYUckSIrEOde OMH2M48gy9K5IBLrLNTi OGM7oVI7qT6qxUvhivlv bGVmdDsgdmVydGlj QQoaJAurV890RMEleHmg PkNvZGluZyBEYXRlOiAg MDQvMTEvMjAyNDwvdGQ+ ZHRrWGU8rPwiLEDf qAHgUXsoLv8zpSxahFel UI2mLMCytrreFALloG5s JNOfcFUipZlrQB2sXQAd whsek857WgAlDPC3 XAPulZBkK5FsuZ8hFyFm KDWvDVIxP9KbtAYjKQcj Z033EKfjDsT2XPUlsjAr M6MaRFFczMoeUsU1 n3S0Fa3Gm7FwllgrA6Qu kMUwOdJxXfknBRo5D8Qs PjwvdHI+NQ02HDMpZJ94 ETr2ZMN2oQlwXNne JVDkJ0AifD2dWgFhBWTu ZGRkOyc+PHRhYmxlIHdp ZHRoPScxMDAlJyBzdHls WD6pBn9kAQZxZHDn vJebfFWvLpFeq3dyGNJd QSfiNJ8plBslT6LfgAN6 PHLuu1s2Qp01C02sA3Xl dXA+DXMwlYS9iVK5 zZ7fXmOkKlK5OXbxL283 HeYcdJPpHpjqj7vgd0se iIu0VqK2YTHhskQrqBpr ZIT5l4WaIz72Q77u IHdpZHRoPSIxNSUiIHZh hKfseu7udS5sZw1+PGNv aVW4kTG0rT0aIbKvVmE9 MRjnB073JzQnwFSt Ncnvf4cpk0ehuNd6ErTy GZIppwAsyDejSEP1i1Iq Gh61V0UhbGvvx7ZrBkw6 sh74lDOaz7G2nHF0 J3UgSFMnhqkdtGWynJky SN6dMXShkkpzGFUwbR8d SOGyM3r9SwYfCpK0GCqu N3DatyA9ASVgqQUj JGKvsMCJlM1qnbqhp8dk pallQnBmOVYfDTs8HKb4 KKHdaRixEdWgTXV3YmK5 LJZ6sSSswA7cdOlo nwtzvA1iUrq+VLP5pQOz mCCAZH9ePddzbFI+PHRk ZDT9nAcxEArxKHYgeG4n OPBtU7j0MzNiQnV5 XDxcJ6MkdsN9KDWznTOy MDNidRFHlV8hcjfdp9ng rlbvGaXyGDKhFYa1HOa0 LWFsaWduOiBsZWZ0 HaP2BAU5zAHecY4qfAgj kjykxJ5tPad+QmlydGgg PKY9JRo5R3JyPiq6RXWe aWsyMU8usZTfYKhl Tr2gaXipzWlbKI1mTBXu ovrkm082TrMsm4liQUQe kEWfMUzqWDQ6X08bg5P7 BBUaIYHmRXS0oED2 kW7woOwccgyeqKVbkXjv tcZfdAawDCyzRArgT460 ZSXcmXfnQmIuOTi8H5Yr Cdi8EXXwmDjoIF4b qMAfLRcoTo8lrRwubYya ZR4iFSUzrgbti526HaZk w5zcYDIlrWWeIDeiWKN5 D88al7L4MNTvASBs HGO5yQD5sP2tlVtxwdtq bGVmdDsgdmVydGljYWwt WZixJ697HZJyfJpsMlUz cLm3I1TyDyk3FWWt sFntUP4kuFSjVUanMa0q yLzxmRlgMR1dLVBasffj l902JkVsv5ysDYEwqMCq UYgtBGA4X34fo3M2 LOMgIMUaLUU3pCJ3wK9l bGlnbjogbGVmdDsgdmVy kUllVGxjNEbmL710NVJd cDsnPlBhdGllbnQg GFexVMy8D0LtOxplmQJ+ OK12VWOmQC03yATxlSPr e0iyvHu0QnEaSFKjTNL3 bXxuVOyyd6AuIAYv Q14uyROhz5W0WLSayDjn fZNbQwXmrSR2tA0kTMde pcbuh8zonxeaCqcwi5fl km54iG64I05rYUri ZHRoPSIzMCUiIHZhbGln fs4scL0gQk1+PGNvbCB3 dNI4uE3sBIRqXlW3OHdf K248VvWmzUDkGidr y0slo3eouLn3JsK3RQSx knIxvWjkBAW4y9XzLr26 Y75qJFvwYCRfILDiYXZq XLYimAaxvc6yiA7n Ii8+LORnkLF8rKJ5xN0m QjEcNzA7CUqgO995IiVa pOQwMqdvQ27oO2XupED+ EYXmIbt0PEUdxYar KB0gvABnRAaxOw1yJLX1 YgBhLzKbOWxzA4BpTFCy zcxdxptbhXV7EZWiDAOn nP48Ho6smVpbZSYq pPJDbN8vtgmjz9krfhgt DyCmIERoHNh9JGo9REFk zGnnMtTsAJC3RaP5RTS5 pZUetH6bwYfumdav rX4lY8AsNJZqidiaRa58 mY2bByPnWiV1FWzvWqy+ A6CPVegkPS8BX0bDQSsh SzwvdGQ+PHRkIHN0 tOdzKMjiSZSinB6rAQUg H7i0IgPjUyJ5CKwsI2Xw CGFqiqcgDq32mS2yZnTy GcJ8DJstS1KaanH0 RHDqxCJxRMasXJR2A88y s7J1THLxUFHpDKV7oMH4 cM9fbSequefrtXLedYxn dmVydGljYWwtYWxp G720RLSqhSwtUiBbPdJ8 JeM4TbL3W3JjOye3VFEc xHloRW2tjJOmPDekDx8x rCtluGcnGP0jMVNg oaqyVWKzrU3jAQQkwRFs uWedGZ9qZOFbqsldt743 FeAxDKJ8TNYaoQUiG2Mi nI8rKyWtHTKgOMFl S5ObfJVkBOtbS301DLuv WwS5VFHywnIwE2QxQMVv wWhkZsH9n8G0Eb26TLRS ZWFyczwvdGQ+PHRk OSG9xRodMMsnKXCgdD9j NDOwC9m1GiZrCrA8YNsh B5CvOCTczmfeTj13sJ2o VlWlByW0GYrtX7Ue tyJ0XOAvfHAnVAbgUNY8 K42nc1T8NIJsDIFpLYV3 rXS6uZ1wrQdaoiakuYCa dDsgdmVydGljYWwt HQiyT853IHSstLujKw8H PKW9M5QfKcy9LDStwGub SH5tmUCwZDllJj5iwRqj oVhzXI4dEXLvyprn AXRteZ8pCGNozVVmxOoo AT0yMKIthwryo434WhWc LUE2IGPdbNYzU3ZxzX2o ZfJsXRMfHZVrD8Gz fWKuPDbuI964FDrbOvP8 YQDkhzSwE0ApUYToyWbm WgK0i2U0Zg9UQKejqHF+ CE67yr82Z7XpBopt Vnr8WZPfKRN1rVY0uF5c KGXmSNmdi8C8cCN5Y8Wa bwIzbt4wg1yrLQNpQSiv E03kpQJte7X8RDFk wPW2JVDvjMmvWfOgnF45 Oyc+QLKcpYdfj5HzCtgq d2zmv5xmjHn1SfGbNMWh yiDxvOojXNZ2p4Pf Yo81G51yWUixMWIvLJQh HOPpQNVkcHdbad4kdT4k Ii8+JHSegEG8yFU1tF2x DoLjGoI6KJatF650 JjOhlEFcVdbhc7ydz2pk fXt5AlZwSHEvikAvdIxa BRT9d6EtLh11B9TkbPrv o2KnRiq8fq81vWZj r1N3eIK0V7GkSFDoapwn oPHioQtsVR1jIFTtxxsh HQMqcR4qTANtZ4g7UtYs UlK0KYbtU5MobgW7 MSUsjMTwTNXgnRLBhX3l uwiji5knibamNxCmLHAm XIf6EIr9WAHggCvwQiKs DUZ3InJ2AGY7cXJh iT5gyEiakpptqD1yBup+ GAt7p6wweJJmWF2nkCM7 TM75XL70dYHkh9N7cMB4 X2GhFOIlmdmvaluf pIC5UAIqKCNsuE75Hs3t dUmiNi3aYGLxXGG2SMIq iJSlC6QfoG2dMuJqDBTq CBHdN9XygVAvENrf B768LQwzShQ4QDHsmvOu K9WkUSNcaLnjSxN3l2D5 Ix3UVW08ZH35HJ39tHJa i3T3qYX6P5AjLDLi rudkmkbotTF7JAWxLQYn nD02Rf9mwWdiJf0yJKDj OYX2YAXdcTSjG8WynQ6s XjWzNCXhPOSeR6Qh sOVhLFibN858CCbeIoL6 OWOrglYlI0RkWXNjkAbg TrW9y6J4Tx3KLd86RR54 BG96pUAoe6G5hWB4 O1XlXWDumtafvrhsxJF8 KOMkQAKnhQ03Ze7okWdv Xd3kIAMpIIF3DADobFLp O5ZqyU1xTxMkDIBl LZCqP7HcyKKtKUwbX094 MKxdEwD7NTZgdhGjP1Im ULZxmPksRwA5i8Y5Ta7Z USevkzu2D8RfJrhx dHI+JA62SRNkLL74oOHy qBKuu1jmhNp4MpPeDOHn SRP1lTjnWPidg8ZeZECc K19kjCJqr5G4LELx bGx (more content not included)... [facility] Wound Care Noteon 08-12-2023 Wound Care Note [id number]# 1.00[facility] Wound Care Noteon 08-05-2023 Wound Care Note [id number]#1. 00[facility] Coding Summaryon 07-30-2023 Coding Summary HTMLBase 64 CjkjwqrjIIe5yGy+PGhl YWQ+RJ7BDBZrE85pwNQc lG0lD9NMGYuEOxmoNTKR UTmBInVwwzGhBG6fnZJg ZXJu IC8+CJ5lEMArDrmtkKIs z8M3oSU8R82jmv6kZLjw wFT4KLVuMoIwpcpec0bz fPv8TAsrYhlnKlYf QFLlgW34HRQ4fM28Rj23 cOQhdGUld0fjzOq2WuBp IJEvALH0xJviAGtiu4Sy VJCmH17bgFFxt2O3 IGNvbGxhcHNlOyBlbXB0 bH5eUMrilowaq2ozwzuf Oxu6rs29nIKak8O0kRC5 I8PuasE3REDofTPl XmrflMITwL7mqlaqb0jy egzoBgOcZBQyFMk5SJh2 SSSfzLhaRiIiHN82FOH1 RKTytaIuB7CvJHHd aShuXvV0y6D8Vm1MH8QL PzkbN7CXTCNTLZqrkWE+ ZH51jj48Y8XsBhraXiq5 CEWwKNX3qTR9aS6w HPIhUCcfg2X8zWV6T9Sl omZbdd7fv5jyFTTsXOhi D64knHBlk8G3UCIvaUB0 FRInyMykErZraN59 Oyc+NMIwvJjsw8EiCfut n0ndz8jjrGb2XupuPCXm bpAitDocZKB8b1TdFz7n ODRffBO8nSC7aR6r RaGzSrW8SGorR657GkAu eYRtTfajP86zW1JhwCL+ AKDcAwk0LVLnnVhgTF2l X6YpWRFpsakyhRFd aBtsNZ6mCDUrhqbqUPGx rT1qOSVcK9n8CdFgHfV2 CFujF2JaFDDtemskHc98 dB0mMqAeLwT1UIza M1DnktJ7KBRyfYQcKJfa OMF6S52qy8J9BCJvRVTc ZIA6qWX8bA5wfWoeasvb bGVmdDsgdmVydGlj TWkmMSkdA054CMTgwVkb PkNvZGluZyBEYXRlOiAg MDMvMjYvMjAyNDwvdGQ+ QWVkBBU8xBxeATUt rWYzRMbgUr0bnQeupMiu PQ8bLCPhsexbYYIynF4o NKBopVXhdCfcXK5aSMKu evjco527IrQkBLF9 IIIrlXVqW2PktM3zQbPf OTHvOQUsV9AwxMLkVGgx F107SUomOxA3EHHnjjUz G8HeJGQfdInfFnJ8 t0I4Bq4Ze0JfhbjyR8Pn fFMfPyOuIsuuTYh9M6Kk PjwvdHI+BR02UORzIK57 YSu8NDS8pUtqMEhd MYYgV4SqoP2bSuHzFSVd ZGRkOyc+PHRhYmxlIHdp ZHRoPScxMDAlJyBzdHls WF3bAy0dSUAhQLBr uPzesLDrCpRqc1geSDCg GOrqCF8odWmtU3FurVM0 BTLjk0c9Ks88V08rS7Rv dXA+URAafCS7wDU5 jT3yIhClGoQ2GTrwY241 ReGbvPObPwpxp9fyp2xh jAp8CvP5WORyrwWroLwe ACH3t6ItPy10O86w IHdpZHRoPSIxNSUiIHZh uCutty7oyL4uXq9+PGNv bFO9wYM6wR2fObKhXvX2 BOhqC538KcKwdAOr Nowgf3lag3ppxOi4ZgVl NAHmrbSodDqqDNK7v2En Ap85E7FqwUnjn6DoOws7 ob20xFTzo0F3rQY3 X7RpOTDnahazeZHhrHuh NJ3rJSPfirthNKRzvZ3i HFXlK0g9AfMjBeD3AEte K1DjkgT6ZFFynXSd VNEklHYLbK6xbnkkx2cq yholMcBmPRHuQTq9AAw4 UNEwxVroGgZdGQZ9UlL2 IGM8qMCygN0dkAqv vuekhB0gPjb+QXO4bZBo vHJORP2uNoupeAR+PHRk GRJ3vNckZJduKCBhjS0h FLAfA3v6CkHlJzW4 BLluJ5KoyuW0TKIgwSHh VVQgxUQJlK4xjfvxs1xg qlvjQbVeDUMuELx4PEa3 LWFsaWduOiBsZWZ0 YvF7DLI3cACnqG2eiJpi fghmcJ0yNyu+QmlydGgg XNO9VPb6I4HxDwb5ODNm wLuqIB7ltSPlJGxm Ru2cuZyodLppXQ6hERUg molnh128FdGul4hoZSQk gLVcLWxqHRB5G02vt8D1 JMJjJIDyTGQ9nXO6 nV9xqOirhellbGQwwQum rcVogOtzFUzaJHqlH570 ESJbqOegNvLvLHc3P2Zs Wuu1XPJldZpePA7u gZPpCIdzCm0dhYlcbPhk XV0eJFYufsmrk323XmWw p7ngLDThkXVvSFmfWFL6 H63fv2Y3HRTwWYKm GSP4yZE1cR4mgHnmvnuz bGVmdDsgdmVydGljYWwt XVaxF053GRPpgGlmRqNy nRv5V1SkYbn9JDMw fDmoGO7hfAXhSEuoQj7u vNwupKahDU6hUJDqxouu q111OsQqt9agIYDnvJYl FVxbMOP5Y98hv3Q4 BSCjLXZxLMG6sRG8pV8v bGlnbjogbGVmdDsgdmVy lAsaSGfuRUytO933PVCr cDsnPlBhdGllbnQg WJwfETj7E6SbZomgjFM+ MA71MZEcEI35mSIntGHq a1lyuLh2RiEzZQXtAJN5 uUigUGiqy6FhKAFo O58ouENlv6X3IQFxvPyo dRWpUbTknVO4lM8yGKka oqaaz3wfgfroYfjhl6in eg88wG17C64yLNsq ZHRoPSIzMCUiIHZhbGln mt3ldZ9eSw2+PGNvbCB3 nQY3cX7jISKoAbF5JLcf T027PeYdbXDxLurb o7bzc2arlFc3TeM1JNUo voJeeNbiQLT1x1OzRo06 K87lBQyqYFVhGWVnAYXt DIAzqRjops1myT3u Ii8+LDSgzBJ6wPR9nE5t QtWpCcH2EDifU978WiBo lSHmGeakG87cH1FhrIY+ DUXpXmr9AMQveOre SL9rcRGlIQpfAh9lTNY1 KvKcTlVvILstU9MeLQQr inkzmooomLA8XELvROMq nB84Vz2cgUgrFCUu yCWVhV3xqqowa4zgcwey KvEmFNDbRJr7UVw9KNUp ePfdChMiIXQ0RfQ8HUR1 qJXyjW1qeKqcocrv yI9vR1PlPMPqfcafAk97 eT1uNvYuPdR5IHxoBql+ L0ROHzeaHF6BY1aRAYcx SzwvdGQ+PHRkIHN0 cUfqERyiWGCsgJ1vQCTc F4c1QaTjXeB5VBcuH1Em POBlxryhEl57kL2aVmKe AuC2YTavF7MxsmH9 KCUbwKBdIHdtJSJ5V98b c0H5PDOnXIJxORU0mVR8 vY2ajAfjceofuEInnQmc dmVydGljYWwtYWxp K357VUKaoAkaJbRgKwB1 DkB1RnX5L9CyXpv2YXOj tYcfRV4zvWOjQZxtLg8m yUmdcErhTZ8rHQHn qcfwKSNiwV7pUUKbyBGe cQhnZM2bPCQdbmkcs457 RdWeHKZ7WWVjqENyJ0Gb nS2uNqSfSTBgLRYr K8WbyFYqMKpoV936USfm JcJ1TYAaibCeU2JqKVHe cCubPyU7v2T2Co63TFSD ZWFyczwvdGQ+PHRk OWI9pCezLZtwUQFkdM7e VQSzV7n0DpBvRhP9HQue I7YaDYEqvmmpLe95zA3b YfDoIxE4VSojO2Ck phM1BDDirLIzHLdrTQI1 F18nh6E8NMVsFKYdSVY1 sGS7cF5vjZotxavyyQWi dDsgdmVydGljYWwt EIeyV062VPRnvRekYu8O KES5J1TrUks1LQLduUhi SU8dsXWuGVrkAp3fgGpp lJeqEB1tEULhmrxw VTUizR8jAZQvgDVztLcp NV1nCCFdyumkj612FdZd VPC1DQLxdFRtF8FpaY4g VyUwUDFbYEWpN4Jp sHVwZVsnA371OOioUzL5 GMEomsVuC6EcRIUczAvu BnS9y6O6Gx2QGZhgsOV+ HI57wm26C9VdXrgh Mtm7LPMrUJT2dBJ2rG9q PFHhEApbd3W1bOW6P7Zr hvBufp9qq8kxAFNyTVec T93xhZFki7P2FSRq gEC9OJEzjPljTuCwsP05 Oyc+MFIrqVnsd0IsVuca a4adk0raeKa2CjUqZETu siJraUnrSIA7c7Wt Xs98P91jHSvuILAiPOCl FXIqEQYjdAfdse9voN2y Ii8+CIXfeUV5vQY4yJ0p OsDiAgO1TJyoE185 CpZljMKeSsqcn7qyh8dp yUe9FmVsZPFdniTlxWbz EMZ0n3MnHv51J0DhvZkx f6UsDkq2iw83gQTy l4J5fOO5R8XcTGWvcnoi uIHqzXaeSI5gSDGdlaid KBRumA4vFWDcF0u1FnZw PzM3QWqyM3AsswB6 HLUimUZuGSAunDVGwI7n mecfq0rxsfdgYvWiGJAe BZq7JRs2UDMqgAbhHsSs AJW6QcY2GHN9wUXt oD8ynArwwisybK7xRom+ YHh7m3fveHQkCP7smMS9 BF25LP96eTLkn4N9rFY5 E3OdVHTudssbsdvf eSW5WRKxJHKoeA73Cf0t rJtaQo7jVGLhKPX1USRo vZOdX2AlzM3nKeHuFBVu MLNoL9KcqWOfNUtn Q544AHvpAyA9QDOewdWb M3VwZMUvxQulUdX6q1W2 Jq5EOI59NP78AN12vJPd u0L5rXM0F7FfKVCf xmnwphowrTM5RSZaUKUn hV29Yk6kjDovJj6yUXLe PTQ2NSGdkJDxH1DcaD3v EuXkWCOoPZJuZ9Dl wTGwSUibU092MObzMvH9 CIMvtrRsK3OkZUTtbDka VfS0o5G2Gq1UBd10DE60 BT72gLJte7Z5nKD2 T3DuXFQawibsxzhpgJR5 XDExBCUliM88Rn3leDib Hv3mATUbNIZ6WYLoiPNi I8AftK4gZeNnRUBs BWIpE7DtcXOxFXfzX378 USeqFaZ8QUCdxeUqA4Hh ORQmfYpaDdX8j0M9Pb8I OXhqvrf1F6HrMtnb dHI+MX12NQNyCV07yAFm iNVpq1jxaPm7ZhKyEZUg YIC6eUybLOvxm0HvIWPt Q97huIXhb9T6TVRb bGx (more content not included)... [facility] Coding Summary HTMLBase 64 AifwmynkGUw8fSo+PGhl YWQ+AP8WUPSlR02stSWr sG8vU7SGZKdFQwpxEJJN UWaQNvWkiqJnAQ3wdNFo ZXJu IC8+AD7mNAJhFpyhdXXv m3D9eEW3C79diz5dZGno hVS1JRZbEoRtsguxo7sn qIw3CBxpPssgRbPd AFDjnV78VQZ6tM99Uz70 mSAzkWOjt0xejJs1QaSf NSDsLQB6eHsoKUldw7Cp BCTvV94crMFcf8K3 IGNvbGxhcHNlOyBlbXB0 mA8kPIrhjyzfj2jaecvv Rll5jt70cLXug7S9lDO6 F6HrazG7UMNmcEHc SreqvQUFtH0ubdube2yk sfasEoLkTRYrBNs6ECf9 VGIfxYmiUaHsYP74TBL6 WRMpxhLbF7BySRGj gNbrMxA9l7L1Gp6RH6FR ZxinW9KUDSLJNXoqiUZ+ AI97cx57X9JpOkfzTzn5 ODTvFFD0zZG1nH2r TYJxNUpbz5W8dEQ9E2Fn nkOiyp3sw3rzGUInBTqs R40krXHbj6S9VSTjjAJ6 RJJcpJmnFjJwbR58 Oyc+USFocEdye1LaPraw i3maq2xooVr3SbyuCWMk hlPqhIifRDT9s0YeGs0j DJYbeZT0wKC8dB3m ObUsAyD0YKmzH040WcQn uOQtMrzxQ41lN7VkqWV+ NQHhFmd9VSUfwYdeEZ7g E7LfNLLmhbxosGAl yDhuSJ2yQFZqxtkvXNYh kI4nIYEjP4f3KzQhAxQ1 UKbsK0OaQPXcfsilCs31 oU0lPtJcDvS3TLno E0BwuvR3BNWnsPBdMJym FUC1W68dc1B0GWKvNVMs FUY4zEP6mK2txDzdjamm bGVmdDsgdmVydGlj HSnpIYtoR530ASJptAdd PkNvZGluZyBEYXRlOiAg MDMvMjYvMjAyNDwvdGQ+ BQKcAHL1vNkxKVHs jOOcWQqpTy7bnRgvoFrc OE5mXPFcxsfhNCUwnM9o BNCxaUTjiBmbAI2iSVKi kcgtj601VhEaSUA4 HPFtsOZbN8DobI8bFyUi QMJdTPWdW8KxkLDaAJgw D612AVgbEmN4ADQxcoPv F1RzSVDakEyaKyU0 f5S9Xj1Mc0YoojnoS1Pw lHDmUsSmUguqWQu6M6Lc PjwvdHI+MY55KWQzPI24 LXh5KXW8fSrmNLtq HNHdC2VceH9rGnWkRALb ZGRkOyc+PHRhYmxlIHdp ZHRoPScxMDAlJyBzdHls DB0qGs6yCGXyUZFe pKqxgSQbAxHff1pyQJXv PYzpIT6mrAqbM6WnyXJ4 TJBwa1d5Ub42P38cQ1Na dXA+PZPsbOC7nIW0 xZ8iGwNzUwZ8FTfgG351 PeMpfHChTsono6lfv5gp xRx8KuF2NEDvtrPphEcm NFE1y4JtMy55M71x IHdpZHRoPSIxNSUiIHZh fEgkiu5ppI7yWr0+PGNv pLZ0iDH6vL9pOvTjKqW3 ZVsmQ669PgFgiAKv Qyrfo2ygx2kusGr0CcNq LAAyeyMxbWgwQCK3e4Gk Cy70C0DmbVzja2KrMkm5 rf16bBRfd8M1yWV7 L5MlQBShhynepJYnaCnq YK9fMEXejmsgGICgjU9h UKNgB1o5IyZhZbR0MMgp P0ZpwnZ2FMPfpZCc ZEXanUVNbY7meeehv7tr eavuBdJnOOOoVRq4ZXk9 OODkyBzxTuYoDQB7EoN6 OVI3xNHvuK8upPqr ramioZ3uKcr+XLZ4kTGk yXZQFG7cBxxtoCT+PHRk TYW0mRkaQSsuJIFjpB7a MRMrI5s8CzYwJlC4 TRrcB5NpnmR7QJQnoXVt UUDesHQDgJ5vkagpd8xg lzhrEfUgLNRzNIm2ITt9 LWFsaWduOiBsZWZ0 GbM2WNJ4lAKdqP3jvOhk zvzhpP4oWcc+QmlydGgg TGV3ZBr9Q1YaIck6WSVq tUpdGG6uaYJyJMae Wr5anOcjrCmtEX2wRGZr wjcwv423LcZdd4awMRXs xUWfHIdsXDW9K90fe3W4 QAQuYTWsSWO7wHJ8 qX7lvBiyhybuwTSozDrj qxXvjLsmXOrjLImfB706 QFQkdJacCcRdDVs7J8In Iqo1VQPtyFuoMN6m dYFpRYlmWu5dnTiwqKez GA2vHGMtxalkb692HnPu r1vxGMYjgVZpNAuwNZE6 Z49eo9Q6CSFxMCKz GPH3kZY0wS3kfFfqboxh bGVmdDsgdmVydGljYWwt NVkbL081LYQijZciIjOc gLz8T7KgIgd7PIRq lBycEA4slCYuJKitMo4g bLmkiYlaXB0aCYBydgqe a281XhDim9ckQJKzgFSj ZNlnAGW5A20st4N3 EAInRBIbZMC2cRS0mJ3w bGlnbjogbGVmdDsgdmVy mFrnWQglDLxlU175INSk cDsnPlBhdGllbnQg VNuvJFi3J3KrPcrmoLN+ HA19AYOkNK38zUDvuQPq k4zejZv5JnGhCMLhTQD0 xAmcYDzsq6JeSTWc Z95thLJnd3C8TYJsqFqz kVInHeCsyWF3iY1dXPvq fmufs6mqfqolRjvgc0yy qi26eK19B86bKOvf ZHRoPSIzMCUiIHZhbGln al0oaE1mZl9+PGNvbCB3 pMI9eQ0gDPCrRzP5QLdk V857KrOuuJSaLbbc u1ses8mfjTl3GoD7PUBg yjUcyUfvVVQ2s5RaKt92 A98mRQosEBCcCFMaMJAi RXFanXpgde5ntG6m Ii8+GFQokMR7pPR2zI6e QoFlLsL8JReaU450HlBz gYYmWfcgA73zL5AhbWF+ KVJyXqv5MQAxmTrw FR1wdLWsUVuwHb1kUZC2 RlGnFfOsJIarO8ZpIBZz bvwmhnyfeWE4RATnMGFk wT74Ah7ksVdbEGIz gXCEpN5gzgwlq2sckpcb SbUrPWBcVVw4YMt4FDFk pWyeLlRvZIB0OaQ8WZW5 xQKdaC9xpErkmoix zZ2hE3FrRMLflhzyPr98 iN2zNsEfNkM3GHozWnn+ C5HJAhuiMR7LW5uNWXox SzwvdGQ+PHRkIHN0 zRjvMQznQPDkbL5wHOTy B3k3AiDhDpX4IByeQ4Xh XJSbfawrWy53lJ3jRkLw TsL4VHyiY2SyneZ6 VSNavMCyKSdnZDC9K19i l5T3VHUzFFBgFDU3eQV6 fR9ncBhqqbrhoGBvvGxm dmVydGljYWwtYWxp T713WFProXcgCgPqFuH2 NlI7VjU5A3OaFss4KZKa uSjcQC7bhMWfZPpnEc0a oBvtpDauRC1yDFId evaoWBXqeV5wXGXvrYWp tTnuSJ3kNENwilswt679 CzLfFFU5FHNmkRUhP4Ir rW3dOgEjJTFfUMQw H3GlmAMwQWvrD467HVei TbC7KWCnphFsN9OzQHPn sMzmSsZ0s9N3Nj06UHDI ZWFyczwvdGQ+PHRk TVC9eMsbAUeuSUEfmS7t RUVhY4n6RoLlKfL7IKri Q8FdTCErcfdnRv23dZ5t HpGyIuT6LAodY3Pi bfE1NHFezPCtPAigRDE0 W23fu5Y9SAYsIRAyMMN9 qMT6fW2wgSstzbtfxENv dDsgdmVydGljYWwt GCdbG206BYXjySuiAm2A FRO6E5LcIxe8RCIgnBhu TE0lcHHsELeeIl2pkGhi yEweSK5eSGQdmcwf QJEtkS6tCJNacGHcaCnx KJ6jLEAstgaoh628AsZx GFZ7XWTliZYrI2SzqR4s PzSfNXXgXJKcU7Ys uCKgBRzjP181GTleTjJ2 KDSnivLwK2DgVWAbsLdv FjU4z6Z9Ad3JOCvwbFZ+ KA43fy70M1UsXyqd Qsw3IPJsWAG0sWC7iR9y LLQaTXjwl8F8qBB8O9It atUmtd0qx7ttJFUuZEmd J47yyVLic4N8ALMc hZQ0BSQtmWqpZsJynL78 Oyc+YWAusQtsw4DwRsta e2pzr2zyuWt3CzQcWUAa jdZboCxiEVH3t2Gs Sc54F30eLUtlECChWUNb LKSaVMIvrEfczo8ziV1h Ii8+KUVrqDR2sOT4mQ4j WhSsIkE6MFniA222 ZuSlsTNjKxiff3pvb2gr xPt2OmRxWCShrbYpwNfa XTN4d4JtKg86Z6VoiYuz u4QqQul4ay66mIGa v5E8gLM3E7OvLEWtftpr qGUpqHwhKE6gBRJlloyz GPMewE6yKWUtQ7o5DgZv QfN4IYrnT1LmtsA0 GBOlmNUzGQGkjEDLmR0s jigat3rnwvahWnKgEEVz YAl6PNf9ZCRjhWeiFwDm TAA2EuT0VSV9iNBd tC2onKzrguiirV7vOru+ TVs6q0xgzGRoXC0grHH8 QB72TJ39zUEag6P6yCJ6 L5JoSDAlyjkdxfha qLL4QLSgKLJefB32Gc7g rScpKb0xCTApQHT7EMBw yRJyC9PgqX8nSfQmQOAw BFNlI7PoeSEsDMlc X923OTdnSlM1ATGmldWz Q1GnKEWjdFbmJoE0u5Y8 Kx8YIH33QG07BH14kNIf y7C1mBS4P0GmRPOi hdykslruhMQ3TIYgVOUe dH73Vr1ywFbaPm9cHHBu NJS2FBRzpCOyL2YsfY6p XwIeRBZcTXEdB8Bf hVQgFCzmA515BYkoFqZ8 UQKojyEiX2AnKHZhqBtg HpZ3r0Z9Zg0AQs82QD22 MQ82mJKvn9X2gYI8 U8YwMWDlechrmpqozMN9 NCOkGSUxiL46Rg9zeEae Yx0lDFCiSRS3USYooDWu H7NmtC0gAjUvMYTc EGDnD0FskYGsLXzyC714 RWtrSsF9JDReecTjL2Lo NCMczDtqJeF6r4B5Rg2E CYquohf3O8YjUdsv dHI+RD02RVRcKC26jBLn cVPrh5gsfAf0CmMiPOPn AGH2bIsfSBqvj0WpXDZy L10sgNLxm6O6LTFw bGx (more content not included)... [facility] Coding Summaryon 07-29-2023 Coding Summary HTMLBase 64 AgvoszruRKg5hAj+PGhl YWQ+EH0FLWGjD62cdZJy cV4iN9CEVCaGAybjVNSA EBoKPbKlesUhMV0qzZZs ZXJu IC8+VQ2bYBDfArzcsMEu w2F9yMK1U08ryz4wHYqm cUC3BXBsAkFuvyrtq0ng uKp5AAigAjwoFkXk ODMgnB15HFW0aP19Wf44 nQXysCVdg3wblYd9BlCc QOUiXCB8dRnpIHtun4Gb MISaW43eoLUqz9E0 IGNvbGxhcHNlOyBlbXB0 wN1nMEhzwzbef2khojmu Qai5xs80sCGcq5X3xGL0 L8PasiK2YQSnoGDa LhfwfMHWaL2ycazff1bq nelpGuCpQCMsLXq9MOa6 QXNztDxdUmDoFF22SWQ5 FFEemgVuR0QdZCHs xYefZfU8s2U5Yg3EZ8VG QptbK1CHMXCSHBfauIY+ EO87mm50X0JyUptyEug9 WPUyFIB2cGB6bG3j WYQjLCeva6R3yFP3K8Cx paVxao2ka2nfEPNsGVgz C84sbOYpf1J5TTQilUV2 NIFloVckSnQurD56 Oyc+QVUzrZtrz4EhDdik n3mqv5vswAg2AgjfLZUa giZtuNqzUVT2b1IrYl0g UYJjaUZ7jCW8lV7y JwVaHyC0IGfnE256QcSg jVAsQwndJ78lW9HqsSC+ MNCwNbo9WJSumWetKF1h R7ZlQJYbqoaslHQh gNqmIS4mRCFkvmkwPANr nH9tEMQxL2g0EoSuRzP4 BNimQ1LuIINvkdhpZs84 sU3xRvCiXqD8LPue L2BmuyE2OSHruRWoNNfs CPV4U63us4I5RGMpJIDq HNQ0mHQ1zI7ceAnnwukq bGVmdDsgdmVydGlj TPqfKTioW723YNQivFmr PkNvZGluZyBEYXRlOiAg MDMvMjUvMjAyNDwvdGQ+ LAQzLVZ9hPsiSQBl vJDpPGdfCd0doDgxgNqr SO3yABHsjhcxRBIrsV5y POLiaFOnjIalIT3mNBEg aadte896KsJnMQX4 NQRyhELpO0ZayD3eDnRo EOTgIVAwA3XmgGZyMBnt T202TOjbTlR2SAQohuOc F0QyMNKhdUdxRqW7 l5L3Nf6Rb5TkwkyzT4Ch oFXtDaAfHbpoDAc1R0Ov PjwvdHI+RO77QIPuNZ22 DCk7ELA5vZwePRhf LMPvD6XiwB0lYkMzAWZp ZGRkOyc+PHRhYmxlIHdp ZHRoPScxMDAlJyBzdHls ZD9mDe6wHSVgRVAt lCytgHFsYpIko7lbOHOv KJqkHW7meBxeR7RneHI7 CQRva3a0Kl55H07fH6Dw dXA+BLAmzOB9iQP9 qJ3aVxBnXrC4FErrJ758 AsGlqLPeLfrac8rzw9hw aPd7PuU1FPTxxdQmdNxu ULW0t5PbRq35M46r IHdpZHRoPSIxNSUiIHZh wMkfcj7paD9bBk6+PGNv sYZ5zNR4aO1lRnGqEpD7 YCwxS384PzSavAYb Iuyik7xhk1nhnSy3LvQp FVIdjiLhvRlhGHO5l9Zj Yk97N0CzkWqoo8TuOvc7 of65kDMlo9S5cWB2 H2FtVGYyxhuqmXUqpTib CJ6iAUCxvzxzPHZxsM6x CTHhV5o1IcQzWsD8PZnr A2TflzN7LDMgtFQs YMVimHLXjU4esbtse1ag oiqyYjCkVZUrLKb8ZPl1 EXYqvMhbOhNjUAD6IkG3 SSC0zHXeeR4gjNfv kujshH3xXju+EON7lAUx hBHAOC3fFuigiFO+PHRk IXU3yMkjFPrqWILkkR7a CKAyR1m8MoZfDlN1 BIxsE2NksuF5EZQtzYSd QUXwrTTPoG3bhbwcm6ik kvbfLtYiNQUyMTw2RHn4 LWFsaWduOiBsZWZ0 RiH0DHE9yVRrvL3dcUza eekwkM7jDrq+QmlydGgg TAD9VCh3P3XmCga4RAVi kJzdAC7lpJAhGBff Rk4osWbolOmiWG1oIHNw iblnk766CcIkg7lmJVTd lGHbRZrrWUL5Z74gn4I8 YFDeKPKsNOI9lAH1 jY1dlWissszvnUCerKnk vjRxsUjjDSwpISkuF687 VHKgpDvoOdAaEMo0R6Zy Vxl1YMHreQisTK6y iRUyEOeoDh4ygXjwtYvk JC8dFGNmknyin020YqBh t5ccVVAtzGDdWIzsJWN2 M94lb8C3TCFmQMPq LXY4bPY6aX5ykTwgzgyi bGVmdDsgdmVydGljYWwt DVpkT409QWMwpVsnZmNn rJr2M4HbMkv5PNIi lEdwVZ5ctNVsLRkiKt5z vLasbXzrUZ8rIOXvbwus b741NqFbs6xaLLIshJRi TCsrTLU5E42lb2T1 AQLtRDOiRZK6mEP9eJ3e bGlnbjogbGVmdDsgdmVy hDbsXPdzAZmrG075FCMm cDsnPlBhdGllbnQg NTfxEJa7I7AhFlmgkIX+ NQ00DXWsGM12jAEqlFTw q7wetWi5PqXzLYDdJGQ0 jNmpWAkee8RxWBJf G66jhWQws8U5QXZzhHfi gCXiJpFqhPP9xP2pIWwd uiwcf2dxsutlTolfj1ch ox72eY03N66oMOrd ZHRoPSIzMCUiIHZhbGln bg1nbN8dPx6+PGNvbCB3 nAI3dE5tZFSxShQ3WIep D502GiLvgIEwWefv c6sak0xfpTn6XfF0SHXl duCstWseWUB4o5AiDd47 V10rNFwcNBNpHWSoQHUs SLIbuVtczy4hdR1y Ii8+FKUavSK0gTY0bJ5x HzFjHdX6PHadC696DkTf cINyIlalG28wC8VtgSV+ LRXsOey6ENRudWmz SM2ahJEtGMopYw2aQHF7 RoFaRbJvVGdhB6DeYMZo ryyutqlxmLK5UKOzYURs uC61Sy4mvMvdCVWn pRZGnC7jmwdgz5rynltx IeUhTJWbSZw2XEj1UPFu tYxiLzGmIZK2QtK7LGQ4 xQIkxB5ylMbmofzf mV5bV6YhMQDwnfvxVl56 kN8yXzRaXcZ4JGemKuu+ D7MYJbknIA1IM4tUTFws SzwvdGQ+PHRkIHN0 mWpeHSdhDDCsoT1iJDIh D6z2QiMzLxG3ORpgQ0Da PJTcqzarEw92eU5wYsNl QcT7WIncZ1TqflU4 EFIseRZoQQgoTUW2X08u d7D1YBWkGRQzEIU9lMV7 gP9tcNfnropisASxvPqx dmVydGljYWwtYWxp I519LAJtbPtrUePaDyG4 NqR9HlU2F0HxSqr1WXSq vXzgNY3ilFJgZHdiBv2w lWrmyCoxSQ0oDSHa qzcvQSLedR8aIGVbkCZv mWjbHP8pSQKamityb811 ArGoMRW9GLVijDRjY8Ga nN7yXsZyOSQaNLYw F7DrvMTsIRxyE670JOfn QtO0TIXgwgHqZ5UjBQDb xAqfYuB7d0O3Yl42DVIP ZWFyczwvdGQ+PHRk AHB7vNgqHVtaSKAvjE9m GIAfB3q1NzWuNgJ1PFjc N0PtYEFdkjygMo81gF7u LlKhKdW1OQekE5Jt kcC0QINexTXbLDfxTVP9 J49dv5G7UJAxLJYqDZW9 nZN5xW4ckWdtoitqaGPp dDsgdmVydGljYWwt GVkeN454AVTkyKonDo3M MKI6X0CcOxw4HYKbrMlm AT5spORjUGveYw2crTgh rMdjUX5iLEDupciq UESmaA5bZRCzxZKfkPmj UO0jAMNhxypkx467CdOs VPU8NZQmyFAzJ5QrmA0n KwUgUIHfYWBhD5Co eZWjZPbfG794SZodWfT8 JXAiozEmU9KfVAOmmLzw QfD1h2V8Qf2BZWqjfXL+ HE69wi85Y3IuAifc Jya2BDAdING4zWP0dN7s XENnBQepc4M0pXJ0C9Lc oeLgkb7ip6qjUPAkRDoy M99udWRjy0U5EUKx wWO4ABRwoSlfOcTvyC90 Oyc+MFGjoWnlq1NbKnlo x3cft4onlKn5WhKbRYJq gpIozMybPWP7x1Ft Xf69E81cNFibBMLrGFPb UPRvJHCukAtvfy6tqI7t Ii8+ADIjmQJ3uBI1vE6m YhJoPbS9GLqkJ808 RyIxwUOlUqitl9you9td uYl3GuTgJWWbpeZefOil EXF7i4EhRz63X9JduNce r9BoSyh3hm83uBRi z9Q4jED1U9GcSONkrofi kYUieEigEF4fQSPawnxk LKWdfW1lKPKnV4b9XkXh GkS6SIsyK6DpgoP7 ULFtbIMtINEjnUPZwD9j fabwl1dkdnbeEnPvAKEg IAm5ROf3DEEhoKdnGqGd NQD3NnC6TLH8yJPe wS2skFqvgxvktV1aHwh+ OMq0q1lnzRYjIS5ygUV8 XP39HA21bWNtp6R1zDK3 B8KoUUAdojyirmml eJD5CKAfNJSgaM86Wp1r mDqbAh2cKFByCWC7KPGv wIUlP3WvaV2pIgGaWGBf YBLbG4TjwNVqTWub J880YKraTfP3ZBThtoDl B1FiUMLwmKydKgH0o5B1 Ji4IFN20AO45QH67mWIw l4U8wPI7J8TwKTKq gifxejozxWX9GRWfRLJa iK76Wy8ejCbnMc0rHKWt JIZ8NPZgfSWxF1RrlL8f VzFoTGGeGXBcS2Bo wJWoFCwwG486ZGmtDmG5 LMCnrsJlI4DmEIRkjFxh AoM8d9M8Ze6SEk19JC10 GR93aJYaz7H7gMU3 K2OtXBKfathkwsgfgFR3 CKPuVMEvyO93Kx1jgShg Di2vHUPaYOX6ZTBovZWq H7QmaQ3yPuHoFDWz JOPgX5PwtRGlGKbmZ253 PUkaQlG7AONjsjQvE0Xk ZCKorSkaVnZ6b9Q3Er2T PUwfcmf9J2CfBkpq dHI+HG19OSKjUI20pCAj kOEah5jgoFo0PzLyAQFv PYM3cEseYRisx6LgTPMo Q34erAJle6D6VFEr bGx (more content not included)... [facility] Coding Summary HTMLBase 64 IoyrxcisXEk8vLw+PGhl YWQ+NH4RCLDqZ72wwFNz yH0sN7OMKMzFEqltHTZL ZApJFgChywXnFA0edXCg ZXJu IC8+IP2jYMNiYxzesYOv u8J8iIT5D47acd1iTNnp wUJ1ILPxAwAnhvmgi1eo hMl5IKdzXsaoKwKe OHEsoD11EUM4aB68Hb01 hSMfpRYiy9omqBb6QiCu MQObJZL3kTryMExzh2Te FPNrF92vhVFor4B7 IGNvbGxhcHNlOyBlbXB0 hD5nYWtnjpuom5jjqhut Vlz1uk55qUNzz8W9wJU4 V8PuvxZ5DPPiqPIn WrlcaPDLjD1sjwzwb5xd zlasShKcQOVaOPf9BAo3 NAMmaSfdOcMkLI98VOV6 DSGhpoQjO0BbDULc tSvhLiG1z7F0Kk9QV4QV JgooA9SNHNYIVEyjtUJ+ XF77tx51W8QhOoleZsn9 TEFmQSX7zPQ3dL2h GSOyBHavk0Z6iPI9Z5Lc jjGahi1rn5fsTUQoUFrh I36cbRCus0U3IQAuuMF8 XSAjeVibLrBttW59 Oyc+YPAstQpwx7WoRbak y2foy0wmhGx1OmkoUTVu fvQwbOgcPJW4d4JzBf3v TGIxcNM0iSH3aK4g ZkLyUlH0ANliI554CjRk jLHqVjakF12hN0BdjKG+ ODCaCky1VOXknAptJO9e D3PnERSzdejvoUEd gEnaPF7pNKIhdkshUWFu wS5sDCErS7h4SfPaWuL5 SZjiS7ApQUSfjzrlBp94 uB5eXwHrZuV9UPsw S5SqrpZ1GYLjrFZdPMdy SBD3Q63bk8K3IYArRGFn LTO8eHC0lP2sxOphyzjo bGVmdDsgdmVydGlj EZrcDMvoS127QORlvDgq PkNvZGluZyBEYXRlOiAg MDMvMjUvMjAyNDwvdGQ+ YVShCRH4uFsxDJTc fKHvJOemJx8vzZcbdSuc OR4dGJYpjntdDOLyjS9c FXVndLHpzEkvBW6mNIAn ngjlq521AeEdDXD7 OKIajRLuK4KkhL0bInGa HNUsVVHkY7XzwSYlUHmb T039ZBkcAdL9AGPmvvEa E9NuUFCdhCagMqG3 m5R3Fu9Ie0RaqivmL5Zo gQVkWmEcHiadNMq7Z4Kt PjwvdHI+HA76JBFdSW74 PVz6JIV1tXbiMLic OEZuD9EobQ9hHwHaMGNx ZGRkOyc+PHRhYmxlIHdp ZHRoPScxMDAlJyBzdHls JJ1nRx2hNPMvJXJy vVgjuUOqAcPep3aqSBBc AKzyNL3hkIudK0QzqEU3 YXXnm3a2Pk91V09bK8Xg dXA+GRHorQK4gKO8 kG2gOcFxXgW2RTguM622 MjPxoERwEhnwz7juq9uu lSr4DpS1WOCwixGxkOyn YYN3d8JxOg73A66f IHdpZHRoPSIxNSUiIHZh iJlkth7cpT4aDv3+PGNv xNC6bLJ7kW0oDjDoTzK9 LHqqQ192RlTapRRh Cxgbz1myh2rnrWx9CwGf WFGhinCiyVebYBE2v9Nt Qg68M6JbaZkuv2PuTjp4 my81jDLse0W6gVW6 O6VxIIPkobxywXDvwThu UV1iOJMxatmvVHPxnG3v TLGlD6r4AqDfJqA3VCti D1MvvkZ6RXNonWBp YVInrSSUfG9ecbgiy3zb lgysSaByTQNsLEy2RSs5 YIJiyFmdOvJoMSL0IgR2 NTG2hLOpzV6zsJpq dwolcP3yFkb+MUT0eDPm sMDHKN6tHbrnlWG+PHRk NHH6pBeaLTinXBUvcB4d UMCaM3w3ZgDyUaF1 JAtyD2RxkyX7OMXudQPm OUPcbSBHeQ2pctlsm8px maixQfNpEWHxBNd0EJs9 LWFsaWduOiBsZWZ0 KxA1OME6sESexP6xeSvx qcxstA2xBjs+QmlydGgg HFZ3HIk2M4RsVee5YJNu gYhnND1yyXDjMHhq Ga4emAxhuEirIS0vVCIl ynvdn692JaYdi2npWXQp jLTuENxqENL4R83jt9Z2 JDSpEVHlWJX1pCW3 sR9izCawiarteXKioVbj daSbwOddVDduHOevB519 LDVelGchNlAlBAo8W6Vt Bqs0BZJlhJmkAO4h uBZwEDdiGc2vlYpctQvu WN1dLUPwwnpxk890FcOh o6mjATKvuNDaLYtmDTD6 A80aa6D3EHZlUHOb QNL1aIZ8xT6thBrnpeye bGVmdDsgdmVydGljYWwt IKcrB853DHAqqPhtLmHe bJk9A0GcBun6EDJk oBspBY7ssOEvAZgcWc1a rDwbtCspDV5xQOHvgqsu g244LkLdw7jfATMzlIVe RVttTFZ7P46md0X8 ONOlUSDzSDI4gQU6xG8q bGlnbjogbGVmdDsgdmVy dAwiVCpaCDsxO102KSZn cDsnPlBhdGllbnQg TKdoPQe2Q7InOuwlmCN+ DA97FBVtVK87oGZdxENn c9fxmGw0OzOzSPCtODN8 qCvgMXpun2XnXZUo Y08chSQqs1D6VCErxCpi wEQcCqZpfWE3oS1dTLsm lngbg0rlatonZywag1us qb43vI42G52mCJdl ZHRoPSIzMCUiIHZhbGln ny2cwB8mFs9+PGNvbCB3 uEH8rB6hOKQxCbU7VPql B658TbKwxQJrOfgd y2lmw8byuLq2WrJ7SKKh hkKnaTapNPN5l9NuOn59 F09mTSazOYKzWYJtTDTi PWDfgNhnpl6ftX1i Ii8+INKsvHK3cDQ0aV3q HlDvYtM9GWkeC172GeVa zEVaWkicX34vO8WdbCK+ CXVnYtk4TBXcaPfx NE4geSUiNKqkWc7gAHX4 OwSsRcXaSEqaE5FlXYWw wofnrxboiHT9WVIeFUYt sU24Lb5dcOfjPLNg jEEGgG4tputqn1bycpdm RwWoONEiWUt5DZz6TGRb tTdqGgQaRVM9GvZ0KYS8 uPIxdE2xjJrzhxmw xL5yB0OdNXWtqyriCw80 kL7vBzWzTmE6SWqtYzi+ S6JRExhtTG2QW5oNVFiq SzwvdGQ+PHRkIHN0 gIacEKzrHDRadO6jYJBd T2m4XuMfXfM5YClxU6Kf AUUvzhneDd06gT6cBhSm MpT2TIteX6AbfpA7 NRIiuJJzBZijVDH1J30s p8H8WIElIUQfYJP6pEZ0 jE5emSfljbhukPFjpIqc dmVydGljYWwtYWxp O888CUFrfKnsYcTeQlL9 VvB6YiB1X1HnJjp3AQLt wEbrOS0qbOOiDHvoWs9t zSzdyMieXD3lDCDs mgwmBLLqyM2nEBNhbXJl rVnlOK5cQFNpuiews742 ZlIyLXM6TZPctZHkZ3Mw cU2gNlZyYEZhLXVt G8WtwTWsACiyY428TDfz HbN4ACLirvJlP3ZsKJKf lEvySbJ0c4R5Fn06LOUS ZWFyczwvdGQ+PHRk TWH6fWfsRAwySEAyeJ3d EFMvF7u3NqIeHrR9XMrs X2QeRDDfvnlbZi74hU9t CjLsJgY4BOneE9Dr bxJ7POSdzJNwGZiyILX0 X84jc4B2OOSpEJQlWEA8 eRR2qT0lhKcpjlcguWFv dDsgdmVydGljYWwt DNbaU352XLXeeMpdYj3N IJV1D1VyRcr8WOGmnGho WR1yrCKcUCheNc5caFeb bAdpBI5rWEUcmqav FBTksN4aYGRbkVWgvEvc KJ5qOMHyudfeg172LhKr QEM1YNTgiAEmT1QrzQ3p ZiMpLACoUVUgL5Rb qAAsUWtpB156AXcaWuF9 ROIxfyFwT2MtIZGusSot MsK3l6T2Py7TKLexsXN+ LD70th98Z8HgDfyk Exn6SBYxNDO7hJR6eY3q RZDgQCijw7Q1fSK6J5Dx rxLwio5fs5roRXZyDChw J80lzKSoc1T0HCLa sNJ8PPCvmBgwKmQegW24 Oyc+DZKtsSvvu6WmEtfe t2yio9jouCx0GhWfKNGb zkAltWpeTUI1o2Ut Ec53D80mUYikXOXdXILn VHGfYVYixKpnwf2cuX1u Ii8+EXFpnKZ5bWF8mQ2d AdEdXaO6WZssQ719 YqSsePFrVpelu0jnh1ib lNw3MrNtRWCbjuVgxStz XEO3e3DqJr47S5BvtZkk b5UpTif6qf06dDMe y8I0wGO5U6WeAQLrocjl mNFxlKzbPS4bTJEatdjw OKXeqD4fOUYtF2i2PcWf UrU6JRpdF8LvvoL0 SNPboDZfIVTdiTCJhU1s rbrpl7tweyzpYpEpIXVc HFl5RYe9BBTfqKrcPwIt IGG5ExJ0HRG1xGCf oY5snYpqehvprM3wTxv+ AYq1y1urfCKfRZ7vxRF6 UB23JY93fUUgp3R6iSI0 P3KdCLAprlprsntw vGP4RGQuDNEymG12Bu1x uSspPf2iWIFnGSW2QIYo cCKmJ3PmuV0dYiAqVXTk PPGkK4ZeaTQxOBcl B299JCgoLyZ7VCDmfrZs S3WiEXUgrCmiNsA1f4D3 Pt7HXB70OP74XH41kNKf i7D0zVU6A2UdBVAu vkrfhruvzMC7CSZqKUFx hJ92Rs8fgYilUb5qJNLx MWA3WVTyeXDaA4GxqZ7k PyGkMJYsMIAdQ7Au fDCjLBedY355SHepUhN3 YJUpnbApW1ExICWspMku FzG7t6Y3Gj7CDm31AB99 HW18sFNhq0Z2xEL7 Z5KrJXChqereqopsfBD7 DEUmKTLetP85Lh9opEhr Yv0qZKVeRJP2IKLfsVHw M9UfeH8yKiVqGMGu STIgT8BekYUtLFvgL478 XCtdKcP7REBcbsHrL1Nk WJMimNwbMdK1n5F6Ue3G EZthwiw5T2KsUdqy dHI+XD11BYLvQC57vOIr jVNvt1igiYa5NpUfYCDk MVF4kPxuXXidi8WuMBNc J95cfAZjj7C7TLJd bGx (more content not included)... [facility] Wound Care Noteon 07-29-2023 Wound Care Note [id number]#1. 00OTGTIFF [facility] Coding Summaryon 07-24-2023 Coding Summary HTMLBase 64 EbozponoOYu0dPw+PGhl YWQ+JH9AVXMhT84vdLPq mS6dE6MTNRpOOwvhJOCX FSnBHiPxekLyNO6mxFUg ZXJu IC8+SZ5oKHHyIpcicQZc v5C6iWN6E48syx4sYJdr bDE7VQImBqKlmshcm9zk iIz8ZQqnUblkAfVg WGNxeG19UXD8aH55Je18 kGSxlIJap5kxnVe3XaYk TOMpSGX1ySwvPCbxj9Rt AMSxF89esQQrn5N0 IGNvbGxhcHNlOyBlbXB0 uJ1uDHazdwylq9ygkona Jup3xv52zELuv0H0rMK9 Q2TbxyI7DVJxrDGq RpwaaGYGgH9aeajtt4bh epjcDfBdFGWhIUd6EZm8 MEKtlDbpTyMdZC26DKF8 QXBvddXtN5LaAUOn nIlbLsR1m9P8Sf4JL1QD JsarT1WKRNTOHDnvsBV+ HC18tp03K4KtViguOqh8 RBKnGML6uLU8jM7j IPOcMCppx7V8eXT4I2Zq phHzhp2fv9ftWZPhDNxc Q87rvCAes5F9SGWfiAK3 GSLqhQngEnWczF94 Oyc+MXBmpEjlr8DvXmni t5rms9doaOy4PrzaGANe zpXdaVkdODU7x0CmAk1y VYRtlBL3cMU3pS0q GtCnJjA4QTjhX808PkKa pSTxNpwcE46tI7ZnhWK+ DEDlEce4BALrtHdqBT6z P7DgICBezbvzjNJr qCdfHR5bMWLjopyoMZMz wW2wJIVvJ2e2DzDcBuI3 MSkvW7YqDCUwhaxoZu07 fS4tEqDuYpL7IRvg A9CocuO0OXCevVDyWXxx HRN8J12am5A6EWYyYPQv BRG0lQA3hD1ntJmijtzf bGVmdDsgdmVydGlj CFjtBJjdB232WLXeeCou PkNvZGluZyBEYXRlOiAg MDMvMjAvMjAyNDwvdGQ+ ZYFmGXL0gZbjPDDw qLYgTZabIy3dhYhpdGuj FQ1aYUNdvikaCCZheD0q WXIziHAdtOkkCK5iPCLj bpmdd426PeKxGVG8 QERrcEKsK6AeiA6rIvOr TPBoSUQuJ4ApbCLqPYiw D285MFrbFdB4IZEozcDc I3YyGIWbqQwuZbR2 y4Z1Ql4Hk4AcdeejS0Kc gTEvQuZiUwflPIq1W6Ni PjwvdHI+WB57QAYpRZ84 TGz2MMP5mWpjSXsi IYTqG0TokZ2vVeSbJFHu ZGRkOyc+PHRhYmxlIHdp ZHRoPScxMDAlJyBzdHls PT1gJn8oODLaMDKt yOrpjJSyDeXnj2mmKIEe ASrfBB3wvRgkB3RzzTB6 PIKcf0k5In37U94kU4Oj dXA+HPGtzAI7rHX5 wM9pQxMjQdS3JNdeW577 JjJrlNRpNsxzk4ebd9lt qSo6QvD3YIKgtaJaaTbm RWD5m4RpHt00H74u IHdpZHRoPSIxNSUiIHZh sLamwi1hiQ0jZf0+PGNv kPG1yPD3uT4sXbVdCqT1 EGqsR866JwAdfXSk Ayxvt3rzb0rdrEy2XrQy LQNreqFewLalQYG7u0Ng Kd89Q0NcnSwrg5HoUbx0 se42jIVrf2X2lJO6 K6EnGBNohgbhgCMyoLtu DT3rLDNqpjmqSBRjiB9r RYEiR6c6SvTdToZ2GQyl L7QwkbA1ERIcmTBr MUXbmROEmV2jwuanl2ww acmhDnZaJPRfLZs4KDf4 DPOziSikSkXrTKI1HkO1 YXS7zZAcfB0bnCta hardnH9gZsz+MDM6jVHn iZKVHE1hTdghnYK+PHRk IQW1jMlmSClrQVCekX0w MHWkY8i8FfObJuH1 GFlzW3MbslK1ERHgpBAh COWxzAQNpH0veacrl9sn ogdhZoDiSNOcXNn0PVb4 LWFsaWduOiBsZWZ0 TrK5QPH9oXUgrC8feUmw monpvT1zHrl+QmlydGgg EBJ6QZd0A3GlDuz0NJZs fWyrZS9ncPUyPOoz Ra7djBbvvHzuGR1hFYVm wakgr454FvIws2uiETHm yYVvEPwhWRF0A33kh9W2 QTLgIGFjDFM1mFA4 cS6bqVahdbmnrEWacWeh ojLtfHfuXTekNAjaN416 AKNdhCvqIgDjBNr6S5Qc Yhk2TYXeoRspJJ8i iJGyWUduMd4rhWsbbBfh AN7lRTMhmdoko540OhZh t9avSINtvCRgLVbnOLN9 H81fx1V4YFLaITHq EHY7rVC8gP7trTeghdqj bGVmdDsgdmVydGljYWwt GTmyC607PLWibBcsPmZu tCw7M0XxPws8UDMm wKslCF0ybUXnFHnhVz3d kUrhbVinUQ6qRIYxbwbo r608YgUjm9rtSBDmuMUj OGpyEUV6B96gi7K2 CFEgPUJwNKX9cVN0pP7t bGlnbjogbGVmdDsgdmVy pCdvOBbyPJhvV784JIBt cDsnPlBhdGllbnQg WRaaMMw4K2RoBfxeiTY+ XP65JTPbGG24kSCgqBPw v5hgyXi0WhQhHQQvFXP7 gExaWHdae8LlRWLv N46ckBRvl0N8TNTvpPry yLMpAyIjpLR2jS6xLVwl ttqma2dcnbnwIynvh8bl cu62tN21L58dRSoy ZHRoPSIzMCUiIHZhbGln zn3erY5pKw0+PGNvbCB3 aDJ4iU4hGEAtCuP6MDfe K511QmFlmNCdWmbu m8tls8rspPz9TkO4LLKw ckAybBewMKS2s9KoSl52 X95vHUgfSQPbMEZcBPNv NEWiySxdxv7joS6p Ii8+YSFwzRY0lQI3wK0u UaLyWvX6MOuwX246RhWx aWTgKxttB82gL0HctZQ+ KDFeGrn6WRZalQqd MI4fyEZqOHvbJd0aHUS4 UuLuRlAsHUrtD0ErOIOs iksktsgzoYJ7YWDvQKQq sF22Id7jvHveLFDt vDSJoJ6xupqjv4muxplw HrClZJZtCRo6OZu8VIJu iIrbUfDgRBK9YzP2EKW0 lALbuK3euHkjmiav wO9mV0PpNAGyxsmsQt62 yT5oQxLzNxT1NPezTnp+ N1QLPrbsCF5RQ9tOSWjx SzwvdGQ+PHRkIHN0 eMvaMDtdRDOfgU1lJVRh D4y6SlCsJyO5QToqB0Ul SVErgsmiWe94lG5uZoHt OcZ4DUqqR1VdfoD5 BBUqzVIpMIxiTPF7M83n h4U7HYNkBKXnIQG2fOP5 uB7mkNofhoorrFIvjMea dmVydGljYWwtYWxp O830DEMxhNamLbPyGwX3 JmX0CmV8G6UeTlo6VPMf aBctZN1krDZwDXxoXl7m aOtldThmJK9eKPUh zcwpPTIqpZ8tWYXgfWQm bVxdDC6sBQVdfzels000 AaZiJDJ3HSPrvEAtO0Nd pS4sKxFbVASsDTIp Z5YdqOJmKUjwR285ODdj FzG2SMXovgBfC9UbDXWg rYjcGtI4r4O4Od29MVMV ZWFyczwvdGQ+PHRk VST5dLqwEBemFJPkyV7q DIWbI2e7HkZqZkF9OBok B7XfOWSknbjjFn00tA3s LyBePlM7EOpbQ9Vo upZ0TZLkcZUpVQjgGBP2 T32gg4T8SAElQZNjTAO2 iAH6zJ0pbXovcprhjGVt dDsgdmVydGljYWwt NNumT550SRZwwOicEc1K BAT0Y8DeKdm2SOSvpUdn RK1zbGUyHPerVn0piAjr sUnyXZ1yUEEufgeb ZGJnsP6dCNJmcGNiuLxw KZ0iFEVxvptto992NwGl KBV8GNJlxMZfP8LdrD4e SnUgLZJlNXPhL9Nz xCQnQUhvR900PAqrZkN8 MLNrkqObJ4EjGXZxcThs ScO4c5E8Wa8ZCFqfbFH+ DG55gt16V6DkTxzw Anl2XJNbUNW3gPE4xX9j NRCvTCwlq0I2yGY3C1Xu fbYidk6om0juMGTrICmi K23leVHsp1V1JVZw fZX4DBYmwVzcYcYljL06 Oyc+JKUbaMnnm6IoCclv p3azc9dclVn3DrWuJBCn jdLlkCjdUSL7p6Yz Pz96E03iFDowBWOxQUMj JYHoALTqeZoymh1wtP3t Ii8+CSNuqRC1sYN2dT8u OkJxOqM0PJnmL679 MgCriWOmGukvx6udh5hh hSq2MmChEGQvyqQypTni WMY9p9FsKp72I8YckSgm r2OgPdz2sc62eFVu z4P0dGC2L4YdCQDjtykb wBLyeRaoOZ2xKJDhgfkq UOWtpR0lNOGyX9y2NyDe UqW4TNcuI8XbjjL9 YOHjwHRgCDPiqIYPfG2j ruxfu8flnsedBjNzMXBi VMk5RQs5HLEzpUwxFpGx YYT9HtM9MRQ3mARs nD2amHzzfrfdaU7qGck+ WLk1n2fvpTQkME7kpJS0 DF91ZP02lPLrs2R5tIT3 A7DpZEIxlhvgdiuz fWW8AJWyYLBciS49Zv2b mUqsWr3hPJQjOIS3WLJo rXAfY0XlzW9bJhMyLLTy EGNrB9YjaJVrDQbx K104WNabElK2YPAeibFa B4RiGGDwnFioWkI8u7O8 Bf8CJA12HG53SE04tUJf b1T9fFK5X9ShPSSu ceveogfwoGY7HJRiBINf lB75Qs3ziUqaNo0tHJXx XEY0YRYnsSJaA7BcoU5b RhSeRZIlNNAdE3Hz qWHiCDfdK086XWmpHpC0 LCOpozQcL5CtJDCnsZmx ZuV8v7F6Pz3ZNh32NE17 QT52hUZau6T9sCJ2 S4VyVMUkzdvllcgeeUE0 WWVmMLNrsI96Sh5dkUaf Pr9vSQDbBOM1AKOlzUNg G1QfcI9xOxAyJXBu RRHrY0KolYPyKWeeU362 RHfmKsR0GARusdThX6Yi NSGwnJynUrO3z1G7Mj1I TPbzbhc6X2KkGsbo dHI+FC49DMBxDN58yYJh cJEta0kxqKx1UfTuCLQz ECR4pBheLFdtr1ScQMAu L86xjCBah0A7VRZl bGx (more content not included)... [facility] Wound Care Noteon 07-22-2023 Wound Care Note [id number]# [id number] [facility] Coding Summaryon 07-19-2023 Coding Summary HTMLBase 64 IdfqiatqLOm7wJm+PGhl YWQ+TH6VPSDqL90cqNPw lF8gJ4VPHRyJRrwmVISB UZhKXpMubdOpDX7wxXNi ZXJu IC8+XM7vCSKfYikqdXUl x2D0lZS0H46fjt9eAPss gYV5ZQAlMgHdjvdid2nb kTj9JKydVieuIaQm JPBijF73LZA7iM61Vw07 hSVmcPVtd4ewvCd4IhMx ZITeEIJ6uApcNBxah3Dv LSRhD23hwUPrv3V7 IGNvbGxhcHNlOyBlbXB0 tV7gGNcvibmgs1wmmxks Alc4oj10qEFpx2C0sXH9 H8WtawT4DGCkjKAj JonhbBAPbZ6htllja5xh cfvaKnQaPEJiJHy1LDj5 EGGpbSjxNvIyIG97OUM8 WDUpiiQvU2MsGVAj vIrzLtK3n4Q1Cd0SG6XX YupjJ7DWEZXUNXjwcTA+ DI14iy42J7DxGffpNhr3 LEEwKZU5rXK6bW5m FSKpKWqgz0Q5jKR5X5Xg uvIvlj9pt0rcMKJyUUil B55wiNCzi5W9EMTbiLC1 BBZzfFcjJrAkoP89 Oyc+MXFvyDwqs7VmSqck h6zrn6glnPl0BaauFERa ycSoiNupWVY1e4LiHn9o KSWtiBJ5oCK2oA3a UcJiJrN0NPjmN144TlSq kZApSqmuO55hD4NnrLK+ TOLqJyo4TLRuuLvtEQ7p Y5GaBWDcdwczvHVj iXiiOC8hAJYtvyvzEHAq wU8fJTKpJ4z1YyCcAeD4 MHunP0IwSBKooddcGo88 oA8mVjAsIfG6ILpr Z5MwdrO8AHUflARrTHrc EZJ2O94fu1D6IZOgUECk SSO7jVT4uZ2rzIessswv bGVmdDsgdmVydGlj BBzkNLpdI557FDAnaOxh PkNvZGluZyBEYXRlOiAg MDMvMTUvMjAyNDwvdGQ+ ESWxWZI7gLpeSOPk dPEvXEbuRu9htTnjrEki WL1aUXGdhxfmYPAumA3f YHQgyNZyhDbkFI1mNIKn kpngi310BfSfKXG3 YPTpbOXfD4MycR7xCrIg JUXqWNBxA8BldHNySRjr P330GJxzDnU2FOWemyFi M4YiXJVnpRkbFwJ1 p0Q0Co3Xx6BkvwtdP3Vm qRIsNbRxKwobIHx6K9Kl PjwvdHI+CO45CPIgEJ98 MTm5SWZ9wBdjVYze BEFmS9YpgE4uUzSyBTLj ZGRkOyc+PHRhYmxlIHdp ZHRoPScxMDAlJyBzdHls FU4vCr7ePLYbWWYa pJueqGQqFfZdg1snYNVd ALfxDL5ecMoxF2PuxWZ2 UTZsx5k3In66F98nA4Nv dXA+LZZtkKN5uKU2 qN2gMcJaFnG1XIwdE737 EoYtpXCzXdxdv1dbk8ly dBs9AxV0VMGfntSuzDyz XNO6u5FkXd32N20a IHdpZHRoPSIxNSUiIHZh vNozad6zoF8eEj7+PGNv bMT1iSG9jY5xTaKcVgK2 PNcoG795JrSueQFf Qzsox9zrc6skjXf5OqQd FYDodkGqbUrxTGJ2q4Hw Eb19F5RdnAjed5DgUpo8 lg80qWKcq3V0vLH8 Q9IiTEJytqphfSFsxXek DA9aQWJjzahiQHBekX2d CLHhM5n2TqMuLtM0OUyu Y9VdegR1TVBlvJNa CIPcnTQYxR5vzwerk0ya dvomDgGjPKRzTRu3IYs2 YNNfoAgzCkKrKVC0WxS1 GYE7nNFkyU3dbZuv kwhbfT1kKyp+VTM6yZYx yBXRHS3wIagklMP+PHRk FBG8wSlbYJnlBPQywU4e TSSrP2i9BfDgPwP2 GPdgH3BwudS8TRBgdLDv BBLdcFZVoW6csfomb9hl rkafGaVmBKXkDRm3YIq9 LWFsaWduOiBsZWZ0 KjR2JDH6eALozD1ivBpf nvseeJ1mJyu+QmlydGgg HQN3ATw9L3HdUwe7SZKp jDhlAE6lcQJqIYtf Ga1igSakcIxbOZ0wMLOy vxsoc744QsTzs0zbPHFf jNEcJMcnLFW3V89hl1B3 JKGjOCPrCPD4jXO2 vO8fwAjqefnmdBIolRmh eoYawPurFKcqFGpxM954 VIEuzYgePsMnPYp6P7Jz Vng6RDMafUciAT2x qVBfPXidZn5grCgnuBqc DU2mPDVcziycd424GjZb v4ccSRVuvXBiXQzvYJA3 L47zx3F5ZDXxSGAm ECY6eYH6uR6lbUogkmlw bGVmdDsgdmVydGljYWwt GBeeG851EQCmnNzyIrTa gFc3T6KrBxu4GIPw jDxpRI7imHNpTYxcCe2k lNbgnCtrYR0xQUEzkmhg n417ZpXii5oqLIXybELn BQkzGNF5R31hb6P3 NJWjTQCrJRW6gKU3oP4u bGlnbjogbGVmdDsgdmVy sJheKNdaKRmpZ988WWCe cDsnPlBhdGllbnQg YCkwCSn5Q9GgHusnpVM+ XE77KBPrCG09hTKdvPLa r1nraIs0AnWeHFWlCNA1 qQzmVEahr0PlIXRj V56zqKUwg4G5UJWfgDwk pFPeHdTboLG1jK8rLDcg ylsyj3ufqysmQtjqm3lw jd63lB94B59nMBsq ZHRoPSIzMCUiIHZhbGln ml9nfC9rNv0+PGNvbCB3 gBY0gW2lNHLjDqS4BHwl N623RwOqvIOaKztz w6osz5bzfKt9AkK3KJSw lnEsbCadCIG0h7XqIb66 U23oBNgvZJTsGVXgHQMo EIEfzZdwgz8reZ8d Ii8+OFAvvQX1eDY4yL9w UnBkQhR3CJpaT059NfUr kNOnDqduD86dZ7VxnJD+ FIYgEuf2JLAfxMsv IY1kpWSuDXriOc3mRCB3 AjChQzVvWBzxF9WaKIMp srfilmfjmWE7REVkPCTi nO39Gs0jdIjdPSUf dCQBpM4mszvdi2ktudye TrAsUSZfICf0GTz9UMOf xDqfDdOgUKI1TxQ6NTO5 tNOtwA6pwFirwsth hS7eD0HvCVYoytaoMs61 uT1tLtWrPhV3XGlbIif+ R6TSCbjbZX4OS3bMQLcc SzwvdGQ+PHRkIHN0 kHitYQhjVFWydM9jSHHj O2v0UxXaSsM0XKutD5Kv KPAanzvqZr70tH4oWeKb LgL6KRngE1KcjqI1 THDfbHGjSQzyLGA8H03i d9P7ITXfFNMgFAK0eNF1 eI1qqSditydetQWypSof dmVydGljYWwtYWxp I228BKWzsVrzQaWrHwB9 FdH5NfO1D5HpIut1CLRk xHpaQP5ziKLmSTvzLx6f bDzmqQsgPP6qGIIz gxgcCZEbeO5wHKYegIQo tLqgZQ1rGJHymfwuu056 TmGmOEO9ZIHopXKdS3Gu mL0uTfCwKKCcAPPl T2LvkNLyPOelH611KOkd RtW6CGHgonXxT9SsLUMv vHlvSuZ9t2P5Sg63UQQV ZWFyczwvdGQ+PHRk IMP0tMmxJIgdGACxfA3k LPSwK7l8CrEhBkU8DBhm T0MfQQNdxfasAi04qG4y RcCuXsE9UKsjA0Vl rnI4ZJPqgZFlSCvfJTA5 C45ea5X6LTFcXQErEXK5 mAJ2wG6ezCdrzmoplCEz dDsgdmVydGljYWwt JMmiP588DDWwaMfaQk4V EKY9J3KnQwk5PESmbVua AZ0woUDmGTerJd8ezYbj hGahKE3vXIPrgcms MOAjbQ8gKTNvkDVhzUni RH8yNGUrlbsaa429JgYt TZY4DEPbxKJwF3IxxI7t UeYnPSAcWRLlL6Rc wSMhRMxsQ486ITbjNcZ0 GUUugcXwH5TsKFYmuNgz PtO2l8D8Yg2RWCvrlZN+ SJ53td74R7NlCdgw Pio2COCeONP3eYU8mG0d VACdFJvsw1C0mKX5A6Hw fzFwwz5zw6alEHIcXSsq C70phLNub8Y5LMPq sJV2KDZyiCinMjCecF30 Oyc+ZPRliBvzq3NwQztk u6oul8cgjZs0GdPdMQNx ktFspEikVLE9t4Pi Zw47Y55yCEphIAChKPAn SAVsFSFfiAgkfd0jwC9l Ii8+RBRnuSA2hNV8fU6h GtOjXpT0LOnqN300 TaPudAZlEsxul1jbp0xz sAh0MeHrSEEyapNyhOji PID5a5WbGt15R1AdeZyy g7VnEda7zz55xRBm f0M0dFG9T7WyVIPcjoeh jFOdrPswBH9qBBQaabua VKEvnJ6iKUYmU7m1YkLw OvX6KXklZ5QherM2 BWNvqIGkVXAyzOZSmE7v mmabb3ywpsmdQjJxFMDg WMd0WNf0KAWecJnjIeZd QMX5TeZ6KLO7hFOl rX1hvFmgkoibdO0rWch+ OCk3g9ncaUZoVO5cqOV5 YJ16XD16mWPvh2N0dYD1 K6NfXHRqggatatgk bPO6DPUkTDRwtY53Mg7h tJxkMs6kXAQdVYS5KWPb pAOfQ2KalL3rVjDkRERm OWZtN4BseVUeFDrf X854XHsuQnP3PLByjkYw Q5EsMHZweHzqUaU6c7A6 Cv2ONA06DK39BI04eQJu z8X3vTW9O7SvMWWi rtzqguehfEX7SVUcSUDh yD73Bg2ggLahHe8eDIDz RZI7JKUdfZJqV5SxsH2l GdFbPICsOXNbY4Zg cGYfQZttZ701YIsgNcP2 VSUeozHlC6NxHHCptXor XdO0l1U0Kk4TGu97IN67 XZ49wYIue1Z2nQY7 Z8YeLUAzwdazgiydaSI9 BWSgRHRmrE86Rg5lwJwu Zf9xDNQjCVZ6VIDmqVCc W5UkkX4oQiYePTVv AXIqE7EsgPUwOWegL058 QAleQlY3VYKaopRcT5Fr YFGszDrpSjE7l0B2Gu0O MSiojcg8M0DkRigl dHI+VG75JJWtNW29cHEa lVUmo8ydqLn1AvJoMKMi CDR7qQziJAzwa2QlYDSp W85suQMoy3J4KSSa bGx (more content not included)... [facility] Coding Summaryon 07-17-2023 Coding Summary HTMLBase 64 PmbopnndXXo9wIz+PGhl YWQ+VM6KRFGkU82zyPMp lE1aN4ZPNKrTSwdnXLLK NHeFYyAggtBjDF1plNUp ZXJu IC8+NW6qHSQrOhldtNEp o1V9qOB4E04dvc4pVObl mJE4CGOsSqYlikiwz5wf vEj4SMwrQvmsYyRz OPFwpZ75WUV3tT78Sn78 aCItnVAyf6fakUx6IsHh ODJiHUW4mXseOCesg1Ab VWJbT49duUSpz0B8 IGNvbGxhcHNlOyBlbXB0 rR7lCAawjwait4ufvjsf Lgr8cm71cRGfq5B0xAQ7 C1MbnhS4GHGilKAt GxrtcPIRqO8juahec1ld kfgiSzHwWLCgNBx1UUn7 LJUrjLwgXqCdXN98FFR1 HJOapsUjC6UsSSKe jJrwEiA4t9G6Qi3LY6FA GauuF0DGBNFWOFxegAV+ GA02tq62S2BqRqhjTxd2 WVIpHAR8zOS9cL6l HKHhDSred1L5tYJ4E6Jz sdVuzn8te7djPTZpFZig F91kdLIrz6M8ATRynHI4 BZFuoLnaTuRziM41 Oyc+PDRjwWfpf9TdYibh u2sbq3ddxVv6DfvkUWOn mmLaqQygPIX2k9CyYs5p NRMyyMB6gFM9gP0y HjPfBuF3NBmcH552YxFp qLOiGbdrH57gH9VkpIM+ CCYwUdx9PYJjiEikZL5o M9CgRRJprhxlnHBl oAkdNR9eDNZvmjdcCQJf mR2oRFQzN2p3ZnQuMeF7 DKlnA6QqBGZdirhfDm02 nN2xWmOfLdP1NSny S2BiivX7UBXrkTVxIYyx TZH5W10fp1B1KROoBXYu KOA8oWY2vH5tzAofklye bGVmdDsgdmVydGlj ITwvUNzlU770ACNegOoa PkNvZGluZyBEYXRlOiAg MDMvMTMvMjAyNDwvdGQ+ RBEaEPN1kBwgZSSz rGZkTGjiZf6xuAolmNas XN6yFHMamctoEGZewA0e YTHtaVQfuUrzJR3ySDKe rhkrf397RnQlSQG0 EDVtsNUpG5EgkO6sRnIz OAHrFJFeE4IysJQuEZzg X811IXhtXkS6QXIwriUo H3ZsUZGstPlbWrC2 w7L2Va5Xv8GgcqajH1Ko pDLsIqDbElmbXHm0E5Cy PjwvdHI+EW51TOEhXS43 CLt6YVG4dZqpBOge QFFhK9GrxW6qSwTyARDi ZGRkOyc+PHRhYmxlIHdp ZHRoPScxMDAlJyBzdHls TB2cVs4yHLHtVISy yEaypLMaHzSnu4ycFACf ZBryJK1skYcxW7FcgEN4 ZJNyo0w4Vo32R55bH9Hv dXA+SXKfvIM5mEO5 hW0wIkQbMyY0SCgtP403 PeWcsWJjSatgs7btl1fd lLj7RpH3TWRrxtJxnUeo HDY7q6UrHj56T60w IHdpZHRoPSIxNSUiIHZh nPuamm0sxP9wDz7+PGNv oVH2hJE4hL4aPyPqCuD9 UPcyC885CkUqdOUl Udjbn2pmr3pdzCj3UmCu NUGxycHkvRxhZRC2p2Vl Ms40I6JqiWeth4GyQwf4 mq53dAXom2F9wSR7 F8AyWOBbdbhvyXVohNhw RF4wNWHqgvzlLFSpvQ5w BEGtT8l9UsFoIfR6NQrj Y1YgrrZ3HCEvtWLi UMPhyFPHeQ3ghbhyw4xp jdwfAzVpNZXhHZn1VWg4 GFLzkPzfDrPrTGW5FoI0 GLS3lTCrwB6feLee ngvgrG3bEul+QCF4eFNo yDKECF5bHuoejDB+PHRk SCT1hEtbCWqfFSGcnJ0n PPQnG3o7ZxAfDeJ7 MVccI7VbyfS7WXBqwDHz PNFkuNZIjC9wftatg1xn irpeDxBkKNUfAZq9VXr4 LWFsaWduOiBsZWZ0 JdE9EKB7aLKwkA9jhRqd ldngxB4oSnh+QmlydGgg BSU0ZPk4V0VlUrn5DLMq lYdlZX7btVQhDNaa Vs6jvElyaZsmUO7cKHIr kdtpy297LiDml7gaOFFy dYTyBWjsKSR0Z39ly2M8 LWTzBXUgFUB7gTY6 wO9luDpawvcoaMZovLqi eySuxAyqJNktIZpuM354 UKTmjVfeQtCbZXe9E3Gq Zdx5PWKxcXcvMK8h mZPvKIeyQs0sjFpehAyi IO7rXJMiwlqlm649TjIw x8avASHobZWeKXyeLOS5 A07eb0K3WCNfCCGv YCC9gBY7aR7osIruqydw bGVmdDsgdmVydGljYWwt EVupT680QGSxaMpaAaPz zPc3L7XfIuo0SJPo qWwyYA6ikUCrLLltRd5d tLozhTcnCM7rCFEnoloy z557GcThe9qfBPOxyHWh DNhdYEK5S48xe9M1 IYOmTPHwCEP4aHL9aB3m bGlnbjogbGVmdDsgdmVy bBqmFTrnEOqoY243GGTp cDsnPlBhdGllbnQg MBnxFCq8M3UrCjsdcWM+ ZA93DFWePT32pMYtqCKb g9eepHr0HmVbBOLeQTP8 yVxyYNkba1YcSUFc P46ceDOkv0F6LUErdKqr nVJdNpMkzVT6tB6kYAbh vfjjz0ckzkalTkgea2et vz06sS59F51zINjh ZHRoPSIzMCUiIHZhbGln lg8ftJ3iEf9+PGNvbCB3 eLB5sL6dZPOtMqG9AOwu X368XfKraOJwRlge d0ivi5ohjNl9FbO8EDZx exQetOetCZQ7y7MhPb92 M88xHXriLTLyLRUwZIEa FQEplOvind7iaX9r Ii8+XVImxWX6rXE6uI2m FxMwYxK5KLhzL657TgMg vXWbAkryA53lX0PmhNS+ CECqGel2BZWgwWcc ER9grPWvBUjfQz2ePJL0 RpGbUoCgTMkxM0WyCDJk wwowjhlqyEU0PBImYCIn tZ78Da5vqKsaXPRe tHTRbN5ztrpmh3dlnjdo HqQuCJXuFJb6YNl2GUYx fCdfBkGuGTM4OhM1YXU3 oRJfcC0jaGgnkjwq qH3hS4McLGNsgvcdWa60 lC3pTdMxOvG3CUrjExr+ U5YGIjbzKI9YG0cPYBqx SzwvdGQ+PHRkIHN0 uRprOGmxOCHruP5tAWQp Z4n7GwJgUrX1NQwzA2Tp CSUyvhwzDw95bF3zXsZr LeF6VJcbC2GopoF0 LJMxhTTxQCkwWVK1O81m w6R2MDQlPCOiBUY2lPU3 xC0ibLwlqkxxqSGsdPcm dmVydGljYWwtYWxp E018NKStvTwdJhBgMnG5 ZfR1ViI4U3WaVcm4CTSr oJznHM4byTAfGDygBg4s vFbxwOocNN8yZQQe kfbmKUQzpY2pPSJevYEu mOlaAA9lUBHsvmvjj905 KqUiJAG9MYMpeRJjZ3Qf fI3tQoRnGYEdKIGf P6HsyUMvHDjxP721VMwt NbG6ZMTbbqPmO1YlMJWu lImfGhL1x9J2Vb63EQVU ZWFyczwvdGQ+PHRk GCG2tPknKPzpEYDhxE7t MCDoA0n1MhIsMaM1OXkv W6HuLRIfongmKt48gN8p SdHtPpK2HTwjO9Xv rxT1PLLazGMgBLexUXL7 L46yh1K4BTEuCZCqKPW2 mHZ4aJ2znMplzpfogIDq dDsgdmVydGljYWwt HDfoL633CNOvaXdvEq7L KHU4O8GiPpc5BJBweRiz FI4lyBErYNtyBs2hiAqk hUyiUP9zEBQatmgr DCQukN5uIJTgyTWxpAmx KK9yPLWetzrqs638LkZd MJX5LUChqEIxE9LslY0f RiRqDTIdDOYjT8Tc wWHsZSchT907AAnrTgT1 CRZgiyQgW8HsNPIlrPne UyP1o3I5Nf4YIDzudRR+ LM34in98J9XaUlem Iad3IAEoSIG8vZX6zY9a YXSwAXgqt7L7gWU3W5Of pwXweq1kj8wtUTXnOFus A86zcUSlx3L8NBNk rNH3CHKodTnrXgDcyA90 Oyc+HBBewGyaw7YmRyyq d6xqq0fqxKu2CiTjOGPj rkBwsEbdSJG3u1Vy Vn15B19iTVimEQUsSABn OMMlQTPmvZnljb9vgB9j Ii8+VGTtaBB3xPZ7oL1y RaBiQoT5FDuzO874 IcAnlLZuEpkdg4uua4vh fOa9NdGgLVCegpScxLjf XOP3f3LsIf62U9KuoMvj t7PuGew4en48wHXd o0Q5lAP6Q6TpGQRcmbvo aRGzgLcaJE2sLETqvovh XTGogA6yFCNwV1w7QgWt QeN8IVosE2JbinU4 FRTtsDSeFCEnhZORxK0f ufnzl7nkmnwnGmTuPZKo OBn1QBo2RHMxyTimKvQp SHZ1NyY1UBH4vLKn hA6ynXuyoqcbqP4dBpc+ SIy2n7oavHQaIU8tzRD1 WS70OH53jYQzs8R9vAJ4 Q5UrZQCmuytiexsz gLH1ERYoIYMssS99Sv6z zStaCd7zRRNlWWI8WLKk eKFhZ2NgaV0uYpQnKIUt EJYmW1RcmOWqVXjr J892KHyqBtG4EDCparJr U1AgGQGnlQonCgB9n4S2 Lf3LKY21MM50PC30lATg e8N7hHT2P8IkYKUq nyukyufrbMI0ROBsXVZb jB10Yn7goDvhVn4hSZLa NSC4SZVwbFYaM1RqlB6h RhXeJMQdCRRxB0En iDZiIZguJ568PGbqIrR7 NPIserIkO4OlZGQseIsr FtC2z3V2Gg1ZEh01HA40 FB35rHZvr2I5xUO3 Q4CvYARipckumcxffMO0 YGJeVENazH12Ra7kpBft Pq6zTSWyPPS0FIWdwYIp V4WogX6wAmPoUBKd SAKxG5QlkEPuKApjP010 ONixDeM4UUOwqxRaP4Pq BPCygRfbEgB8y9G7Yi9S MMczddh8H3QlKdtg dHI+BV11TBXaNE24sHEn yLSuh7mcaTp7XpHkPGHy QFX2rXzmVTddx4QxYFCk E59osHWnq3E6BECu bGx (more content not included)... [facility] Wound Care Noteon 07-15-2023 Wound Care Note [id number]#1 .00[facility] Consent Formson 07-10-2023 Consent Forms [id number]#1 .00[facility] Outside Recordson 07-10-2023 Outside Records [id number]#1.00[facility] Coding Summaryon 07-09-2023 Coding Summary HTMLBase 64 YifnfrhwCSs5dDq+PGhl YWQ+XY5PQKJvB64atMZt wG0iK6QYBWaRSrizJOCK PGmRVdIuudXwUC8gcYIu ZXJu IC8+EZ6vNMRcBjonhTSu y3M3oIG0G46pjj9dDJum dGA2FLGiCuKfkgdeq3ip aFi4ZOomOuegRdNd OYXlkO69UQK5fA08Xs87 bLXnuLUlz6aoaKn0UnMq AMQkIYK9aHsqJIgds9Rb TTSlJ01poIIdt0Z8 IGNvbGxhcHNlOyBlbXB0 kV1iHQfjgpnfb0rtvfxh Uwm9jk79tQAqx9T7wHJ2 K3KrzdS3PSXjoRRm ZyztyQVEsX2wyvtzt6sh ximwNyYoOSZjNHk0QYl7 DGPyqQruPaMgXC07LGF6 VPOaivZkQ5VoDBHu rVnjPkL1j1O0Dv6RA7GB AxsdF6FYLTQERHnwuFN+ MJ56fm61G4LvPrzmIax7 OEKoTXI1gJF6aL7n UFMvHBwtl4K1nAZ9Y6Hb wxGtym1im3ejVMKmFBjx R18zcNCuz0S5ELGdtOW6 ZXFifPgjIxWueO96 Oyc+JRKpcXmqt6FhMzah e5ooy2jhbHt2GqxyJHJl wxKfaOkoYHC4p0KnGt3p HFLeyIR3bRU2iK9i VkVaWnK1HGdcL100OnUa tIRqCfzaF52wY4HoxDD+ ZZKiDpy7JELefKniLT2j P0EpSHKfofbxsEWs lFwxNK6rDTHrurunXXRk yE9dDHPvV3f2CbJaKsV5 FDxfD6TtTEBwncqoHh99 qU8jFxLcDgQ4XPxl F2ZsomT6DINrwAKoQNhs OVM1S67mp9O1JNOmNZKl HQJ2fCW0vU1ojEvvgqgt bGVmdDsgdmVydGlj EKcdAIvaH378VLRvpEkh PkNvZGluZyBEYXRlOiAg MDMvMDUvMjAyNDwvdGQ+ YQCtNUP0iVwhWPMx lUQjPDzgGo4qgKikcXdv HL4vZFGbnepeTFAxiR6z BLEaoCHrxLqrHX6uBKKr yedoi050BsSnNNB5 QWXwtCQxL8XniL1tZkIc ISIvVUVzT5ZfwUWcGDjv Z572EBhlVuA2IMBzfrEs X7VqDXOheMclEcW0 l8B4Tq0Au1ZircozX5Yl iYTxRuVkDpagTLv0G0Up PjwvdHI+SK03KLWqYC03 JMj4HAL5vRzaSAcp PBGkR9CqsO7hPbHjKQJh ZGRkOyc+PHRhYmxlIHdp ZHRoPScxMDAlJyBzdHls VQ9jFo9pEOJzQKTq pTxphSXzHyBvd2dmRCKi EAvrCA5teVpeD3OczQT5 VQCaa5e6Bg33I88lN7Ui dXA+CFPfkXK9wHV2 pY3vWhCpKoJ3LRqqO552 RfFmaBLbFynqg7jvf3lx rGd6OsW5EKWgkzWbfZgh AQZ8d4EuBe53R59w IHdpZHRoPSIxNSUiIHZh kMbybd2drL8pIb7+PGNv gFG3rSM4pV7cXqEuGeW7 KAmjQ984JvAecNOf Jjiwn0ahp7ialBh6AgFr IWOrsfOuwCfwPDK7s2Te Ht76Z3HxqRavy7RkWfg1 cw12xWKjg5W1rUH3 M4NqRBUizmymzHAyqXqm XE6uQQKjuniyULWcfJ3d STVaU2c4BcJyEkK4GQek C3FimbO8KAAdmZFt JNVjwDAPlP7ppsabv6ou dgglLfEbLKQmSNt1BGb2 ZTIisXuiQsSiQQD3LfW4 DZB2hWBglL6dnQla gwhjwZ5gHvj+BFV4eKQi qGLTUU7iFoynpKZ+PHRk ZTJ2vJscCIqoDQEakC1j XDJlK6v1BgNmSoN6 LHujG6LyhyZ4KZOreMPm VLIvaBPUwX8eoniuz4ir bzweGwRkVCWjYCm8QFl5 LWFsaWduOiBsZWZ0 WcV7NIC0pHJmmL1bmDov przcsW5jEqa+QmlydGgg CMM6CYl9H7NhZbk6ZIUb mTbiRI1ydEAdMPgl Yn3jwZuqeUshUQ1mYNNv unhpd856OuVae0oxTQJx uYMnOPmiVIF2K32tl9S6 ZISeYQFcCXF5qPL4 oD8qrCqokvmkbLJskMvd euYtnVffYOmiPPjyJ695 YNSljKydLpOhSLu7Y2Dw Yru5CBWbqBbrLV5j aRNrKCdmLy0gwMnbnNhm EZ1kVYWqgocix150BmSe f0teLYFgsOWqQKsfZBK3 K80pz6Z0JMCsZQLl UTX3mHP4uD1swJgdfniy bGVmdDsgdmVydGljYWwt AWpdD656RPGomPtcKzPi pVf0X9CdDfv3CNLb cEtgWB6phMXyNFdzBn2d sBnvzZpwDL6rIGNycqjj i252IzQgy1eyJPMjfYZv RNheWRO0W52yk1B6 IMYrJNEmRVX9nBE9lP2r bGlnbjogbGVmdDsgdmVy zHdnBRexEItwU102UDVp cDsnPlBhdGllbnQg LQffEBi7R7ZqWznigZJ+ HX87VPKaXS46iSHjfBEb c6ojrUr3IhRsLNShXKP7 kQzhBFesx7CaIKRi R70ixJTkn7D3MRNitUqa bEOuPeJsuLY2jP4jZLos ypusi1xguyirPpubb5wj je61eT49D64qQKzu ZHRoPSIzMCUiIHZhbGln rn4tfM1kXk7+PGNvbCB3 hUH2zQ6mZAKzXuW6XYwr B632PmLmkWPhRcbz l2vpt4okmNb2AfF2EBZd hgEchVxtPLS2j8HxNy04 Y39vXQusJHVyBGDkRIQn HSNedYxrpr2yrQ1i Ii8+XRXucVC2nBJ1tM2p KtEdYkB4DEfqW684TvFz cPDnAibwF88gW5HquLR+ SBXnEyi6TWJksRix HW4cwRGjCZwmHz8fOYW3 ZtEpVvOtFDikV7ZpJEDy fjgjjexfoBY3BQNlRVZj vS17Pr8skQawFFPb eGIFnZ7kbtvot7dojmdh FmXjRMQwWIx0FGl3PSOs yAmlXrCuDXI0FpE1LGH7 bAYdgS1cpMmbyqtt aV5xU5VqPAWsosiqCw41 mI2tNwBcSxD7BMnlIgd+ R5OYUgepQJ9PZ7kUONvu SzwvdGQ+PHRkIHN0 dIbsZAssPUDrfK8hLAPn U1x3PrXfZhF2JIsqH4Ng ISAfpvllJd05aX7pPpUb FyF8PXkpF1BycqN1 VTMdwJGsQMlxKKB0O31w e9W9AJTaVHUvNPN1gLY6 hV4jrYtwtjgljJPgcIoz dmVydGljYWwtYWxp I545ZVJobVszLvHvRoA5 ZhP0IcE0B5VqMzi1VVTs yPgeAB2iiSPtZYamXe2v jCayfUnzAM6yRKNg ydyjXPHyhN2eIVGszQJm gPkjTC6sRCGalcmpr504 DhEwVUO9UZFqqHUkC2Yh xN7vHeDnBHIdIBNh G3XiwTEeGOkuW232YJqa FxK4GWJvgvEzL3UfOLXa dQzfCvX2m1K9Ir88HSOK ZWFyczwvdGQ+PHRk QBC6lLlzWSrmJQJvsS7m OWOaA6s8FiLwZwP3DAns V1JqOODfbhisJv81aH4q OmZlXvQ7MVugV2Fo nmR9FEAlrZZdSUfjNKC4 V19aa5R2SROzKCOaJFU0 aVE1uP7tbYfmpjyogGSz dDsgdmVydGljYWwt YInyR986PWXyhQwzAo2P VBY1H0CgZae7FEUmgBtj EF0knCTdMKwpQi0bjRls bAryOW4yBWRwhhng KGShaS0fQDJsxNPlcTwe WH6iNXTravecj215AtBd UWI5JOKyaOIdJ4LdiY8x WsHuSMBvMGDsL1Rb qQLeAMziM914SUqyGwF1 KKObvpYkR5XbSGEexWrm PqC2c0H8Tz7XZXmlwNX+ KS88cq47M9DvZywt Vkj2UWAiJYK6oFY2xI4c UXJvUDocg2X5mNO0O8Ij lmBjtj6ss6sxFFIuKPqt M55ogKCxf4K3ZQCe wZJ8TLImyLmjOiOgdP86 Oyc+HYQevMlbb3RfVxmh n8swn6ygqXj3ChGqNODx anCykIcjETP2l2Tn Lo47H47bWIcsSUOsKXHi PKAsQUDgmJyenl7wfX0b Ii8+KAAygID6yBY0bF2c SnCqPcD6CTfjN603 JgUarIUwHqlna3xuy7ju yHz3MuQbXHQaejOeeJmn ZTD7j9JbOd41D1GsjKxf s2MvHxk8oi89sAKh e3N5hOI5G2MjCOAgryjd pWYrzSpjWL3tRHEbqozd EFQfhA0rNRUrJ9e9GiLo AzZ8UQfsR6GwegK3 YFLxpGUqYLGphMQEeL6k jztei2dutoecQpMaQQQn RRw9HDo0JBKupKzmTnQx RPW6HaA0AEV9bTOk pY6pnCsxbzmzdE7cOue+ OOr2a4ateJXwOY6zdDD2 RH59GX12dYIph2U5eOK0 J4WpQORyorbqfwyp qQA3ZIVxDQJqgM21Xr6g rXuqAa1dREQhCTW0GBHt kIDyC4LsyB8vOrLeVLNw BPHkZ0VsrNLqYBcj G583ZHagOzH6GHXvtnZf S3CfZWWbkRamWnK4e1H6 Fx8OXS88KQ09GT94oRKg g7I2yBT4B1TuLXRq rxwiifvsxME3HJHxFEBm nH34Rd5oqKnbEc3vNAQf MIL3VWAycGUlU7LriM5o JzHxAQWhSOHjZ0Cl xAGeUBbnL686WSwpWnP1 UMUxlmBoF2OcGTKpwYux ZxW0a0G3Ur5UYg60WL16 KI65vBUlw5E1pKK4 H4UrKDPrfpwridxxuXR7 LYImQVEfrI13Db6rcEaq Lw3mWUBiTUF7GXBmnMWa H3YkrK6bZuEdSCLn BAAtH9GuuEOrJClpA226 MNckJsN7DKApiyPcY9Yh RMUxvSwdHfO6b5P8Bp2K JStucmc0W6CuXbnb dHI+QT41IWLnZN42rCOr sCGjz7nybDo2SrJuWBMk JVP9lLlhWWqlx4BmVIPa H18boWOnx1T5EBHz bGx (more content not included)... [facility] Wound Care Noteon 07-08-2023 Wound Care Note [id number]# 1.00OTGTIFF [facility] Wound Cultureon 07-03-2023 Wound Culture rt calf, KAREN, 07-01-23, 15:40 Heavy growth of Staphylococcus aureus [...] <=0.5/9.5 Verified Vanc S 2 Verified [facility] Comment on above: Performed By: #### [id number] ####[facility] (DEFAULT)[address] [place] [address] Ambulatory Patient Summaryon 06-26-2023 Ambulatory Patient Summary [address], [address] - Visit Summary For YRN RICARDO Age: 63 years Sex: MALE : 1960 Address: [facility] [address] [place], [address] Home: Work: -- Primary Care Provider: KAREN ZAPATA, LESLY To Race: White Ethnicity: Not or Language: [place] Health Plan: 1?[facility], 2?[facility], 3?[facility] Reason for Visit: Three month follow up for med refills Prescription Information: If you have been given a prescription for narcotics, seek immediate medical attention if you have any difficulty breathing or any sudden status changes such as confusion and sleepiness. If you or anyone you know is experiencing suicidal thoughts, mental health, alcohol and/or drug addiction problems; contact the [facility] 26/11 Crisis Hotline -Text 4HOUN to 588668. Follow-Up Information With: Address: When: KAREN ZAPATA, LESLY To [facility] [address] [place] [address]/ [address] [place] [id number] In 3 months Future Appointments [facility] Appt. Date: 09/25/2023 1:00 PM Scheduled Provider: Lesly Melchor MD [address] [place] [address] [place], [address] Future Orders No future orders Additional Goals [...] Dosin.000 kg Body Mass Index: 50.14 kg/m2 [place] Body Weight Calculated: 84.047 kg BSA Measured: [...] TABLET BY MOUTH ONCE DAILY nebulizer machine ([facility]) 0 refills authorized Instructions: one [...] is caused (more content not included)... [facility] Patient Handouton 06-26-2023 Patient Handout Infectious [...] and keep track of them. ? Take qqcn-cho-pdfbnal and prescription medicines only as told by your health care provider. ? If you were prescribed an antibiotic medicine, take or apply it as told by your health care provider. Do not stop (more content not included)... [facility] Outside Recordson 05-15-2023 Outside Records [id number] #[email or web address] [facility] Device InterrogationOrdered By: Rosalind Murrieta on 05-14-2023 Radiology Study observation (narrative) [facility] [address] Ambulatory Patient Summaryon 03-26-2023 Ambulatory Patient Summary [address], [address] - Visit Summary For YRN RICARDO Age: 62 years Sex: MALE : 1960 Address: [address] [place] [address] [place] [address] [address] [place], [place], [facility] Home: Work: -- Primary Care Provider: LESLY MELCHOR MD Race: White Ethnicity: Not or Language: [place] Health Plan: 1?[facility], 2?[facility], 3?[facility] Reason for Visit: Three month follow [...] alcohol and/or drug addiction problems; contact the [facility] 26/11 Crisis Hotline -Text 4HOPE to [phone]. Follow-Up Information With: Address: When: LESLY MELCHOR MD [facility] [address] [place] [address]/ [address] [place], [place] [id number] In 3 months Future Appointments [facility] Appt. Date: 06/26/2023 9:30 AM Scheduled Provider: Lesly Melchor MD [address] [place] [address] [place], [address] Future Orders No future orders Additional Goals [...] 3 m2 Body Mass Index: 47.09 kg/m2 [place] Body Weight Calculated: 84.047 kg BSA Measured: [...] day anxiety, 0 refills authorized nebulizer machine ([facility]) 0 refills authorized Instructions: one [...] Body mas (more content not included)... [facility] Patient Handouton 03-26-2023 Patient Handout Nutrition [...] numbers. This can be done either in [place] ([place] or metric measurements. Note that charts and online BMI calculators are available to help you find your BMI quickly and easily without having to do these calculations yourself. To calculate your BMI in [place] ([place] measurements: 1. Measure your weight in [...] for Disease Control and Prevention: www.cdc.gov ? [place] [employer]: www.heart.org ? National Heart, Lung, and Blood [place]: www.nhlbi.nih.gov Summary ? Body mass index (BMI) is a number that is calculated from a person's weight and height. ? BMI may help estimate how much of a person's weight is composed of fat. BMI can help identify those who may be at higher risk for certain medical problems. ? BMI can be measured using [place] measurements or metric measurements. ? BMI charts are used to identify whether you are underweight, normal weight, overweight, or obese. This information is not intended to replace advice given to you by your health care provider. Make sure you discuss any questions you have with your health care provider. Document Revised: 01/13/2020 Document Reviewed: 11/20/2019 [employer] Patient Education ? [address] [employer] [employer] [facility] Outside Recordson 03-25-2023 Outside Records [id number] #1.00OTGTIFF [facility] Outside Recordson 03-18-2023 Outside Records [id number] #1.00OTGTIFF [facility] Outside Recordson 03-13-2023 Outside Records [id number] [facility]-11-2023 Outside Records [id number]# [facility] 12-21-2022 Ambulatory Patient Summary [address], [address] - Visit Summary For YRN RICARDO Age: 62 years Sex: MALE : 1960 Address: [address] [place] [address] [address] [facility] [place], [place], [facility] Home: Work: -- Primary Care Provider: LESLY MELCHOR MD Race: White Ethnicity: Not or Language: Tajik Health Plan: 1?MEDICARE [facility], 2?MEDICAID [facility], 3?MEDICAID [facility] Reason for Visit: 3 mon f/u Prescription Information: If you have been given a prescription for narcotics, seek immediate medical attention if you have any difficulty breathing or any sudden status changes such as confusion and sleepiness. If you or anyone you know is experiencing suicidal thoughts, mental health, alcohol and/or drug addiction problems; contact the [facility] 26/11 Crisis Hotline -Text 4HHTC gn 296111. Follow-Up Information With: Address: When: LESLY MELCHOR MD [facility] [address] [place] [address]/[address] [place], [place] [id number] In 3 months Future Appointments [facility] Appt. Date: 03/26/2023 10:00 AM Scheduled Provider: Lesly Melchor MD [address] [place] [address] [place], [address] Future Orders No future orders Additional Goals [...] 371.897 lb Body Mass Index: 46.73 kg/m2 [place] Body Weight Calculated: 84.047 kg BSA Measured: [...] day anxiety, 0 refills authorized nebulizer machine ([facility]) 0 refills authorized Instructions: one machine to use with nebules Outpatient Labs ([facility]) 0 refills authorized Instructions: Wound clinic. [...] to displa (more content not included)... Normal [facility] Patient Handouton 12-21-2022 Patient Handout Orthopedics [...] walking or exercising. ? An inability to hot walker items, twist your hand(s), or control the [...] aerobics, that increase your heart rate. ? Pqzbe-jw-tkcwmg activities. These help your joints move more [...] above the (more content not included)... Normal [facility] Coding Summaryon 12-18-2022 Coding Summary HTMLBase 64 VrumizfbRKj1nVn+PGhl YWQ+JE2TYVKcT71piTWq jY9jU0DPKHjMBrmzXCJJ OLtYCpHffuPvNL8jcLKe ZXJu IC8+QJ3oFPWaFvjbgBKy z5Q7wRS0J11uax7rRClr hXX9IWYpPtFqgorzd9ka oTa0ZSetUwyuQnBq WOAanD87DHE5wT63Vk38 gTLyhUXqf0wmtQn0JaCz SACuZMR7iVqjMYqvd1Hb BGDeU07idCRxv3H7 IGNvbGxhcHNlOyBlbXB0 jF2iXOigudxdq1vjymst Ozu9kf15cNGgz4G5zMP3 X8HpkjX6LZReqDHw XsaffBQXbG3vfwsva5em oyrjKsByRUIxMXw0ZAp1 YTAoqAtnQyByQK88EAO4 NIJeoxWzP6NnHZJx tHvjOtV5q4Y7Bo0XN3YO BfiaX1XKGKMGAUtxxJI+ IZ68hu74V8HpFtllTod6 OKVkINE3wKO0aH0b JAYkBWdfo5I9tGB6K8Rt tfKoam9ff8zvWIBgMVxp M60fuTRpo8Q3YRLnvHI5 UHTryTvzSrRtiY62 Oyc+KIShnRnfa6OnFoxd c3ajw8sicBf4FyucQSNw geForZqcBWL4v7YpTe4k TPXmzVQ4wOC2aF4m GxZiPjV8XLqcP560ZcTl sPTkVrklP82dK9ShaXD+ NIMcHye7NUOuhVrkXL9g R7ZyIBOlgfmgdGUd cJqeCC2mFEIhwtfyHSGf eI7qMVZtI5z6SiHqVjL2 RLkcO8PxWUQdqfxmQf33 mH1tSqQtPnG4OPer C0PoufO1RVMhzNMqQCrq CAZ5S00lx8O4XYJrMRVk RCE1mKF9rC2zbPzfubhw bGVmdDsgdmVydGlj UBkkOWhvW156QGBwoUgl PkNvZGluZyBEYXRlOiAg MDgvMTUvMjAyMzwvdGQ+ LKFeKWR9eOywMVZn cLZeMKlxZx0yeJnvvLbu PX7vCDPddejoJZRifI3m NYStdHQicZvtQW6yZKFn adozt449ZwYbORT1 QTYteEQpD5GjeQ2bAcNe GEQiAFXjU7TsmCVsLAff T071DPclEjE9ARJmgvNn Q2NbNZKvxFpeUeE7 k4C8Et4Nt6VsvvdmT6Mb zNKjYoAzDaonMMk3F0Zr PjwvdHI+CI74BJLoTX36 IHh1UDD6oJpoCIgl TBVbD3TciG0oHmBePKTz ZGRkOyc+PHRhYmxlIHdp ZHRoPScxMDAlJyBzdHls FA3eCl6aSOOxJVXs gDzehFSfBcUlf4ceJQHt ZYftEF3tpEyfO2YjgGI1 PTLgn6k2Fj76A45jO6Pl dXA+DUPgjSF8fPC7 bJ7aHzObByY3ENttO596 OoXkzCAhEjaqw0ylg0jj vXq7FlS5UUSdstUpcOee YBR4f7DmQc46Q77t IHdpZHRoPSIxNSUiIHZh eFpzvl4ydZ6qYy2+PGNv uXN2eLB0yN3iOhYvFoL6 IXckG572PiXsaVWm Kayex1lil5nvsOr8QgJc MSYtbrYafVysYFQ3c3Fk Ns25B5UobBgaj2WaBws0 dh16mPSzb6E2qZR4 W4VoTJPtxzvpmSNimTka PL9lPHEexucqLPQirK0m GYVvI0v1NuOdDnN2CWgc Q6GltzN5RHVmzOBz PUXdwEHPuW6favfsx0hk lkaqKbZyMJBhPKr2WUz1 INXkvBhlFmOuAXE9ZbL2 GTM2jEOibI5gaArf nnjubY6yBuw+SMB9jINc bKWQOV7jEvjdnXZ+PHRk EVX5lDjkEZluTSIscX2u WFGrJ4d8LeFkMqJ4 YOsdT4YnmmD1VGJpzUNx VMMixCVGyT4uwzwgq8in rdrbGmRmCGQoHYh8EOz7 LWFsaWduOiBsZWZ0 HgT8LAL0zVOibB6cjDvg ddwoeS6dCuq+QmlydGgg TPG2XGm1R5ShUjd5CEBo qYjeKD9riYPeRDdg Jw4wjKjlaWoaXH4mSHLj xacfj065IwRbt9wrCEFc wLVfWEwvBEI0D98qc9I5 LIKpIQBsISV9kTD9 xF0wxOkfhyodpALwuJft yxHwhNihEEvsQZayD194 XXDjlJnmSwFuGPq2R1Dr Thu9HRRxcYwrQE6d wCBeOFwcCf3jyXxzjLgp TB8sLKTuiixnu926NiPd s8bgMEHcoUVbXBkzODA0 T30go0G0OZBzKOZb PTH8jEG0jW7ljWfuxqwr bGVmdDsgdmVydGljYWwt SGfvB983XJEbtDsbLwRp cAr7H9ItSil9JAVb dAvyEA2gjZKjXZmsFz5c rTlbqOvzFM4wPKWpptao w627IqUmw3vaJFLqlRBn XZdgDFJ5H07kp3X2 KWEgUPAcNZZ1nOX8rA4v bGlnbjogbGVmdDsgdmVy aUdzYSugNLkrG095QEEs cDsnPlBhdGllbnQg GFunQZn9Y8JqOouomRT+ MI59YTBfRZ37pRJsxDAw x8ixbYq4WgWlSCPdEOP5 iSufZGwob5ImFOBo M67deEOug4K1PDPspMfk fPLrEhMnhIZ8sB0kGSfv gnwjh7axjdyyOehic6mi wi79sE86I39yPBza ZHRoPSIzMCUiIHZhbGln tw8dlU9xKg6+PGNvbCB3 pJI0lC0jAYBvWgN2KIdn V231NgFxiGPqZbov j0ziy9xwpDz7IfR4MWZs phMmnPltAMP7q4CuAv61 D41aKUekMWMkAEUsPJGm KELdrImcjf5saJ1q Ii8+HWVucIL0zUY8qL7m XqMcMlZ9QQpoF615VlFm vZRvGwkjX63vH3EyjAU+ PFGzPgr0NLTbaHeg NQ1ejYFyADdzAk3rPQJ1 UoGpVvGoSFdpR7ZwIHMm gncjyuwrkDX2NNLnFGWy qD19Gz2dyKflNGBa dTWNoS5ugbecs2vwhqzx LdJiQJNgSSx0EQe6PMFg bXkaQgMgQFR2IxS9XBT4 ySGcuS9rnHqjzwcm gT4rH7YxHAMdkhqpNa73 pP9iXkZcSoM0OSofEyv+ K3AQGammYA2DK3tBTVjk SzwvdGQ+PHRkIHN0 yUjdVXbvVYPgvT2bKBSb C1j1ZjLiNsZ6EQwrV6Lr UAUugeqnAw40wE8oSjBr VaR2RBddR7HilgZ7 ZSSjeAAqBWqpDFC0I71n l1Y6BRIzXZUeIBK5fCK5 uE9xaGeyvlrqzCFzpAcq dmVydGljYWwtYWxp L612NVGdqDhjKyFlOmL0 RiS3NvY2R8FqNfe4BHJl zCbwKP5jrPCnZWbwUn7x gWtccEkjWX7dBNIf hgjnOOWhsB5oLTNkuCUx lXytXZ2yXNEwclrgv465 TxPqDYF2OKPliYNdG5Qm vW8yHzEaSKKtSXJy D0NinZWnASokV790EFvv EeH1XHXnzkJcX7ZtOXJx dYycSxA0x7O1Wj54HHCJ ZWFyczwvdGQ+PHRk USM8bJkqPBwcCEVxuP6m EZSxL8k8LeZlMiS8FOmh C4UcRTToruqmPk75kL7m LnDkCqX0SIgkN1Gn qcV1CJRxzEHhNThcGTD5 P15ad2E0WPWpQQKtPUC5 nJZ9iX4peOxobkqhcZCq dDsgdmVydGljYWwt KNqsB741GZIubAcmKr5U QBJ1X0FuFzm0PDRmbLbm CU2luCOwQXzfQm9jiHtq yIuvPI5cCKNuawlz RTOjdH1eDSZfqCVobZhr DG0yPRTmesdvk644YaAz IDV8UEXhoNPrM4ZhfG3o ZtYcWVKlTVAhL9Xo rKHfWPetL458PJcjUvJ9 UMXrhcGlF0CnWKCmwLfc VcC8y0Q0Dl6LUJaxgLZ+ QT09lx72J9EaDpgr Ryi6FGWwMYT4qUE4tF0m BPWeDYiow6H9hBR6E8Ph paWtam9yn8vxNMWtBToa Y73pkFQtq8Z7VQOu oRL2SGYteIllBbWusH89 Oyc+ZIZvdZzzs2UiLplz s8ypp5xpaCv2SuUeEYIo faKvqUoaBFO1h5Mo Jq89K88rWLitBCQcLHRr FEKkLDRoePgkki2oiW6v Ii8+AOJyhKT1uMW1nO4h AtLeAyN5FBsbE558 KxJjhXAxCzydy7nao7tj cBm1QmGoCDJkjdSvmCbh CJF9t2JmIx19M8YynVdh f7UrRwo2rk82dPBd p8G1nJC1Q5CuIIUiaduf qLYmdCyvWD0nTIZbcjxr BQIbwO9gHJXqP7w5WqEe YpN4PDwdI5OztrQ0 YUCerCHvEUOhiZCSaM2w wmrdz8ulujiwGmQzHRZy NVd0GXn9JAZksEerSgKe NPK9ZcU6RAW0zLHn kI7zbEkvvobkaG3wTst+ WHh8n5vrdPWlEH9uhKC5 KM11VH58xXQei3N2qUF5 C8ToEAXldcbpttxa mEH2ODHxFLYydF00Xl0x mSpkWi3hMNIiCPX2EGQn eRWtP0MzcG4rGoUkKALy MKKcH0SnlFSqNOlt O802MGiaKgE5LKZzamWv P8UoZDOfrUfxBwM9p1R1 Wa7SJS97CI58EK39bWQr s4B4mAD7B6UfRAHe kdzmcirocDU1XUMkHGFz nW35Yp5qpFvdVq2xIHGt XVB3WJWyxJOgR6ZjqE9z HxCjOOEmHRXzF7Tq iLLzYOpqH951ZEhuQrB9 NGGrxhQuB1MkAFBrtSws BnH0o0P3Ao1BBd02JS98 PC74jXYfn5X2xXO4 H2IfZZDfzctwarolbVD8 BSMfGABpnU07Ic8rdZgu Ke4dZJHeTXQ7GAVxlJQu J3NtkM7kUyUpDUPr HHIyM1FizKEtDDfaZ074 CHskRiR3MLKblxNwL6Vf IDGbeUqbHyR3p9C1Fq2S EQcbnse5W2VwXbjg dHI+HU99XULrTN59bIFw vUQui8jivCz3OvIuDZZv RKU1rUmuDGuel7GqRKBy N57wgUPgw9L6MYDs bGx (more content not included)... Normal [facility] Standardon 12-13-2022 Albumin [Mass/Vol] 3.9 g/dL Normal 3.5-5.0 [facility] Comment on above: Performed By: #### 1 [id number], [id number], [id number] ####[facility] (DEFAULT)[address] [place] [address] 69431 Albumin/Globulin [Mass ratio] 1.0 {ratio} Low 1.4-2.6 [facility] Comment on above: Performed By: #### 1 [id number], [id number], [id number] ####[facility] (DEFAULT)[address] [place] [address] 97982 Alk Phos 84 IU/L Normal 32-91 [facility] Comment on above: Performed By: #### 1 [id number], [id number], [id number] ####[facility] (DEFAULT)[address] [place] [address] 36610 ALT [Catalytic activity/Vol] 22.0 U/L Normal 17.0-63.0 [facility] Comment on above: Performed By: #### 1 [id number], [id number], [id number] ####[facility] (DEFAULT)[address] [place] [address] 00752 Anion gap [Moles/Vol] 9.9 mmol/L Normal 5.0-19.0 [facility] Comment on above: Performed By: #### 1 [id number], [id number], [id number] ####[facility] (DEFAULT)[address] [place] [address] 00498 AST [Catalytic activity/Vol] 31 U/L Normal 15-41 [facility] Comment on above: Performed By: #### 1 [id number], [id number], [id number] ####[facility] (DEFAULT)[address] [place] [address] 81194 Bili Total 0.5 mg/dL Normal 0.3-1.2 [facility] Comment on above: Performed By: #### 1 [id number], [id number], [id number] ####[facility] (DEFAULT)[address] [place] [address] 95548 Calcium [Mass/Vol] 8.6 mg/dL Low 8.9-10.3 [facility] Comment on above: Performed By: #### 1 [id number], [id number], [id number] ####[facility] (DEFAULT)[address] [place] [address] 65755 Chloride [Moles/Vol] 104 mmol/L Normal 101-111 [facility] Comment on above: Performed By: #### 1 [id number], [id number], [id number] ####[facility] (DEFAULT)[address] [place] [address] 43861 CO2 [Moles/Vol] 28 mmol/L Normal 21-32 [facility] Comment on above: Performed By: #### 1 [id number], [id number], [id number] ####[facility] (DEFAULT)[address] [place] [address] 08707 Creatinine [Mass/Vol] 1.07 mg/dL Normal 0.90-1.30 [facility] Comment on above: Performed By: #### 1 [id number], [id number], [id number] ####[facility] (DEFAULT)[address] [place] [address] 36491 eGFR AA >60 Invalid Interpretation Code [facility] Comment on above: Performed By: #### 1 [id number], [id number], [id number] ####[facility] (DEFAULT)[address] [place] [address] 16510 eGFR Non AA >60 Invalid Interpretation Code [facility] Comment on above: Performed By: #### 1 [id number], [id number], [id number] ####[facility] (DEFAULT)[address] [place] [address] 07060 Globulin (S) [Mass/Vol] 3.9 g/dL Normal 1.5-4.3 [facility] Comment on above: Performed By: #### 1 [id number], [id number], [id number] ####[facility] (DEFAULT)[address] [place] [address] 07218 Glucose [Mass/Vol] 92.0 mg/dL Normal 74.0-118.0 [facility] Comment on above: Performed By: #### 1 [id number], [id number], [id number] ####[facility] (DEFAULT)[address] [place] [address] 27661 Osmolality 276 mOsm/L Invalid Interpretation Code [facility] Comment on above: Performed By: #### 1 [id number], [id number], [id number] ####[facility] (DEFAULT)[address] [place] [address] 35547 Potassium [Moles/Vol] 3.9 mmol/L Normal 3.6-5.1 [facility] Comment on above: Performed By: #### 1 [id number], [id number], [id number] ####[facility] (DEFAULT)[address] [place] [address] 62081 Protein [Mass/Vol] 7.8 g/dL Normal 6.5-8.1 [facility] Comment on above: Performed By: #### 1 [id number], [id number], [id number] ####[facility] (DEFAULT)[address] [place] [address] 60312 Sodium [Moles/Vol] 138.0 mmol/L Normal 136.0-144.0 [facility] Comment on above: Performed By: #### 1 [id number], [id number], [id number] ####[facility] (DEFAULT)[address] [place] [address] 58452 Urea nitrogen [Mass/Vol] 16 mg/dL Normal 8-26 [facility] Comment on above: Performed By: #### 1 [id number], [id number], [id number] ####[facility] (DEFAULT)[address] [place] [address] 80340 Urea nitrogen/Creatinine [Mass ratio] 14.9 mg/mg Normal 4.6-16.2 [facility] Comment on above: Performed By: #### 1 [id number], [id number], [id number] ####[facility] (DEFAULT)[address] [place] [address] 77226 Hemogram Standardon 12-14-19 23 Erythrocyte distribution width (RBC) [Ratio] 14.2 % Normal 11.5-15.0 [facility] Comment on above: Performed By: #### 1 [id number], [id number], [id number] ####[facility] (DEFAULT)[address] [place] [address] 56054 Hematocrit (Bld) [Volume fraction] 41.9 % Normal 34.8-51.9 [facility] Comment on above: Performed By: #### 1 [id number], [id number], [id number] ####[facility] (DEFAULT)[address] [place] [address] 70417 Hemoglobin (Bld) [Mass/Vol] 14.2 g/dL Normal 11.8-17.7 [facility] Comment on above: Performed By: #### 1 [id number], [id number], [id number] ####[facility] (DEFAULT)[address] [place] [address] 39651 MCH (RBC) [Entitic mass] 32 pg Normal 24-34 [facility] Comment on above: Performed By: #### 1 [id number], [id number], [id number] ####[facility] (DEFAULT)[address] [place] [address] 54495 MCHC (RBC) [Mass/Vol] 34 g/dL Normal 26-37 [facility] Comment on above: Performed By: #### 1 [id number], [id number], [id number] ####[facility] (DEFAULT)[address] [place] [address] 75859 MCV (RBC) [Entitic vol] 93 fL Normal 81-100 [facility] Comment on above: Performed By: #### 1 [id number], [id number], [id number] ####[facility] (DEFAULT)[address] [place] [address] 68570 Platelet 122 x10 Low 138-427 [facility] Comment on above: Performed By: #### 1 [id number], [id number], [id number] ####[facility] (DEFAULT)[address] [place] [address] 53286 Platelet mean volume (Bld) [Entitic vol] 8.0 fL Normal 6.3-10.2 [facility] Comment on above: Performed By: #### 1 [id number], [id number], [id number] ####[facility] (DEFAULT)[address] [place] [address] 12794 RBC 4.50 x10 Normal 3.70-5.30 [facility] Comment on above: Performed By: #### 1 [id number], [id number], [id number] ####[facility] (DEFAULT)[address] [place] [address] 72691 WBC 5.5 x10 Normal 3.5-10.5 [facility] Comment on above: Performed By: #### 1 [id number], [id number], [id number] ####[facility] (DEFAULT)[address] [place] [address] 24331 Lipid Panel Standardon 12-13 Cholesterol [Mass/Vol] 158.0 mg/dL Normal 66.0-200.0 [facility] Comment on above: Performed By: #### 1 [id number], [id number], [id number] ####[facility] (DEFAULT)[address] [place] [address] 49655 Cholesterol in HDL [Mass/Vol] 48 mg/dL Normal 40-71 [facility] Comment on above: Performed By: #### 1 [id number], [id number], [id number] ####[facility] (DEFAULT)[address] [place] [address] 96333 Cholesterol in LDL [Mass/Vol] 98 mg/dL Normal 1-100 [facility] Comment on above: Performed By: #### 1 [id number], [id number], [id number] ####[facility] (DEFAULT)[address] [place] [address] 72556 Cholesterol.total/Choles terol in HDL [Mass ratio] 3.3 {ratio} Normal 0.0-4.5 [facility] Comment on above: Performed By: #### 1 [id number], [id number], [id number] ####[facility] (DEFAULT)[address] [place] [address] 44826 Triglyceride [Mass/Vol] 60.0 mg/dL Normal 0.0-150.0 [facility] Comment on above: Performed By: #### 1 [id number], [id number], [id number] ####[facility] (DEFAULT)[address] [place] [address] 86193 VLDL. 12 mg/dL Normal 5-40 [facility] Comment on above: Performed By: #### 1 [id number], [id number], [id number] ####[facility] (DEFAULT)[address] [place] [address] Provider Orderson 12-13-2022 Provider Orders [id number] 0#1.00OTGTIFF Normal [facility] POC Glucose FingerstickOrder ed By: Serafin Shearer on 06-02-2019 Glucose [Mass/Vol] 64 mg/dL Low 75 - 110 mg/dL [employer] Phone: Glucose [Mass/Vol] 74 mg/dL Low 75 - 110 mg/dL [employer] Phone: Glucose [Mass/Vol] 70 mg/dL Low 75 - 110 mg/dL [employer] Phone: Interpretation and review of laboratory results Abnormal [employer] Phone: Interpretation and review of laboratory results Abnormal [employer] Phone: Interpretation and review of laboratory results Abnormal [employer] Phone: Surgical PathologyOrdered By : Serafin Shearer on 06-02-2019 Surgical Pathology Report [id number] [facility] [address] [place] [address]. [place], [place] [address] SURGICAL PATHOLOGY CONSULTATION Patient Name: YRN RICARDO [facility] Rec: [id number] Path Number: [id number] Collected: 06/01/2019 Received: 06/01/2019 Reported: 06/02/2019 10:13 [...] with no areas of granularity or masses. Greaser Helper sections 1cs. tm Microscopic Description Microscopic examination performed. [employer] Phone: POC Glucose FingerstickOrder ed By: Serafin Shearer on 06-01-2019 Glucose [Mass/Vol] 96 mg/dL 75 - 110 mg/dL [employer] Phone: Glucose [Mass/Vol] 91 mg/dL 75 - 110 mg/dL [employer] Phone: Surgical Pathologyon 020 Surgical Pathology (NOTE) [id number] [facility]. [place], [place] [address] SURGICAL PATHOLOGY CONSULTATION Patient Name: YRN RICARDO [facility] Rec: [id number] Path Number: [id number] Collected: 06/01/2019 Received: 06/01/2019 Reported: 06/02/2019 10:13 [...] with no areas of granularity or masses. Greaser Helper sections 1cs. tm Microscopic Description Microscopic examination performed. Normal [facility] Comment on above: Performed By: #### P PPVS #### [facility] [employer] [address] [place] [address] 42431 Produce Buyer: Karl Klein MD Nicotineon 05-23-2019 9-OD-Eeyhwhhf 3 ng/mL [facility] Comment on above: Performed By: #### C SYD, PT, BMP #### [facility] [address] [place] [address] 15321 Produce Buyer: Karl Klein MD #### [employer] #### [address] [address] Produce Buyer: Cameron Calderon MD Cotinine 5 ng/mL [facility] Comment on above: Result Comment: (NOT E) Cotinine is the major metabolite of nicotine and is a biomarker of passive exposure when present at low concentrations. This result may reflect passive exposure to a nicotine-containing product. The half-life of cotinine is approximately 16 hours. Cotinine is metabolized to 0-[id number], which may persist for weeks after cessation from long-term or heavy use of nicotine products. Performed By: #### C BC, PT, BMP #### [facility] [address] [place] [id number] Produce Buyer: Karl Klein MD #### ANICOT #### [facility] [address] [place] [phone] Produce Buyer: Cameron Calderon MD Nicotine <2 [facility] Comment on above: Result Comment: (NOT [...] positive. Test developed and characteristics determined by [facility]. See Compliance Statement B: [employer]/ Performed by [facility], [address] [place] [id number] [email or web address], Cameron Calderon MD, Lab. Director Performed By: #### C MARC VELARDE, SVEN #### [facility] [address] [address] Produce Buyer: Karl Klein MD #### EVELIO #### [facility] [address] [place] [id number] Produce Buyer: Cameron Calderon MD Basic Metabolic Profon 05-19 (cont.) [facility] Comment on above: Result Comment: Aver age GFR for 50-59 years old: 93 mL/min/1.73sq m Chronic Kidney Disease: <60 mL/min/1.73sq m Kidney failure: <15 mL/min/1.73sq m eGFR calculated using average adult body mass. Additional eGFR calculator available at: http://[email or web address]_[email or web address] Performed By: #### C SYD PT, BMP #### [facility] [place] [address] Produce Buyer: Karl Klein MD #### ANICOT #### [facility] [address] [place], [place] [id number] Produce Buyer: Cameron Calderon MD Anion gap [Moles/Vol] 14 mmol/L Normal 9-17 [facility] Comment on above: Performed By: #### C BC, PT, BMP #### [address] [address] Produce Buyer: Karl Klein MD #### ANICOT #### [facility] [address] [place] [address] Produce Buyer: Cameron Calderon MD BUN/CRE Ratio NOT REPORTED Normal 9-20 [facility] Comment on above: Performed By: #### Kenrick VELARDE, PT, BMP #### [address] [address] Produce Buyer: Karl Klein MD #### ANICOT #### [facility] [address] [place] [address] Produce Buyer: Cameron Calderon MD Calcium [Mass/Vol] 9.7 mg/dL Normal 8.6-10.4 [facility] Comment on above: Performed By: #### Kenrick VELARDE, PT, BMP #### [facility] [address] [place] [phone] Produce Buyer: Karl Klein MD #### ANICOT #### [facility] [address] [place] [address] Produce Buyer: Cameron Calderon MD Chloride [Moles/Vol] 98 mmol/L Normal 98-107 [facility] Comment on above: Performed By: #### Kenrick VELRADE, PT, BMP #### [facility] [address] [place] [address] Produce Buyer: Karl Klein MD #### ANICOT #### [facility] [address], [place] [id number] Produce Buyer: Cameron Calderon MD CO2 [Moles/Vol] 25 mmol/L Normal 20-31 [facility] Comment on above: Performed By: #### C BC, PT, BMP #### [facility] [address] [place] [address] Produce Buyer: Karl Klein MD #### ANICOT #### [facility] [address], [place] [id number] Produce Buyer: Cameron Calderon MD Creatinine [Mass/Vol] 1.28 mg/dL High 0.70-1.20 [facility] Comment on above: Performed By: #### C BC, PT, BMP #### [address] [address] Produce Buyer: Karl Klein MD #### ANICOT #### [facility] [address], [place] [id number] Produce Buyer: Cameron Calderon MD GFR, Amer >60 Normal >60 [facility] Comment on above: Performed By: #### C BC, PT, BMP #### [facility] [address] [place] [address] Produce Buyer: Karl Klein MD #### ANICOT #### [facility] [address], [place] [id number] Produce Buyer: Cameron Calderon MD GFR,non Amer 58 mL/min Low >60 [facility] Comment on above: Performed By: #### C BC, PT, BMP #### [facility] [address] [place] [phone] Produce Buyer: Karl Klein MD #### ANICOT #### [facility] [address] [place] [address] Produce Buyer: Cameron Calderon MD Glucose [Mass/Vol] 80 mg/dL Normal 70-99 [facility] Comment on above: Performed By: #### C BC, PT, BMP #### [address] [address] Produce Buyer: Karl Klein MD #### ANICOT #### [facility] [address] [place] [address] Produce Buyer: Cameron Calderon MD Potassium [Moles/Vol] 4.6 mmol/L Normal 3.7-5.3 [facility] Comment on above: Performed By: #### Kenrick VELARDE PT, BMP #### [address] [address] Produce Buyer: Karl Klein MD #### ANICOT #### [facility] [address], [place] [id number] Produce Buyer: Cameron Calderon MD Sodium [Moles/Vol] 137 mmol/L Normal 135-144 [facility] Comment on above: Performed By: #### C SYD, PT, BMP #### [address] [address] Produce Buyer: Karl Klein MD #### ANICOT #### [facility] [address] [place] [address] Produce Buyer: Cameron Calderon MD Staging: NOT REPORTED Normal [facility] Comment on above: Performed By: #### C SYD, PT, BMP #### [facility] [address] [place] [id number] Produce Buyer: Karl Klein MD #### ANICOT #### [facility] [address] [place] [address] Produce Buyer: Cameron Calderon MD Urea nitrogen [Mass/Vol] 23 mg/dL High 6-20 [facility] Comment on above: Performed By: #### Kenrick VELARDE PT, BMP #### [address] [address] Produce Buyer: Karl Klein MD #### ANICOT #### [facility] [address] [place], [place] [id number] Produce Buyer: Cameron Calderon MD [facility] 05-19-2019 Erythrocyte distribution width (RBC) [Ratio] 16.0 % High 11.8-14.4 [facility] Comment on above: Performed By: #### Kenrick VELARDE PT, BMP #### [address] [id number] Produce Buyer: Karl Klein MD #### ANICOT #### [address] [phone] Produce Buyer: Cameron Calderon MD Hematocrit (Bld) [Volume fraction] 42.0 % Normal 40.7-50.3 [facility] Comment on above: Performed By: #### Kenrick VELARDE PT, BMP #### [address] [id number] Produce Buyer: Karl Klein MD #### ANICOT #### [facility] [address] [place] [address] Produce Buyer: Cameron Calderon MD Hemoglobin (Bld) [Mass/Vol] 13.2 g/dL Normal 13.0-17.0 [facility] Comment on above: Performed By: #### Kenrick VELARDE PT, BMP #### [address] [address] Produce Buyer: Karl Klein MD #### ANICOT #### [facility] [address] [place] [address] Produce Buyer: aCmeron Calderon MD MCH (RBC) [Entitic mass] 28.4 pg Normal 25.2-33.5 [facility] Comment on above: Performed By: #### Kenrick VELARDE PT, BMP #### [address] [phone] Produce Buyer: Karl Klein MD #### ANICOT #### [address] [phone] Produce Buyer: Cameron Calderon MD MCHC (RBC) [Mass/Vol] 31.4 g/dL Normal 28.4-34.8 [facility] Comment on above: Performed By: #### Kenrick VELARDE PT, BMP #### [place] [address] Produce Buyer: Karl Klein MD #### ANICOT #### [address] [address] Produce Buyer: Cameron Calderon MD MCV (RBC) [Entitic vol] 90.3 fL Normal 82.6-102.9 [facility] Comment on above: Performed By: #### Kenrick VELARDE PT, BMP #### [address] [address] Produce Buyer: Karl Klein MD #### ANICOT #### [address] [address] Produce Buyer: Cameron Calderon MD NRBC Automated 0.0 per 100 WBC Normal 0.0 [facility] Comment on above: Performed By: #### Kenrick VELARDE PT, BMP #### [place] [address] Produce Buyer: Karl Klein MD #### ANICOT #### [address] [address] Produce Buyer: Cameron Calderon MD Platelet mean volume (Bld) [Entitic vol] 9.8 fL Normal 8.1-13.5 [facility] Comment on above: Performed By: #### C SYD PT, BMP #### [address] [address] Produce Buyer: Karl Klein MD #### ANICOT #### [facility] [address] [place] [address] Produce Buyer: Cameron Calderon MD Platelets (Bld) [#/Vol] 199 10*3/uL Normal 138-453 [facility] Comment on above: Performed By: #### C SYD PT, BMP #### [address] [address] Produce Buyer: Karl Klein MD #### ANICOT #### [address] [address] Produce Buyer: Cameron Calderon MD RBC (Bld) [#/Vol] 4.65 10*6/uL Normal 4.21-5.77 [facility] Comment on above: Performed By: #### C SYD PT, BMP #### [address] [address] Produce Buyer: Karl Klein MD #### ANICOT #### [facility] [address] [place] [address] Produce Buyer: Cameron Calderon MD WBC (Bld) [#/Vol] 6.7 10*3/uL Normal 3.5-11.3 [facility] Comment on above: Performed By: #### C SYD PT, BMP #### [address] [address] Produce Buyer: Karl Klein MD #### ANICOT #### [facility] [address] [place] [address] Produce Buyer: Cameron Calderon MD PTon 05-19-2019 INR Coag (PPP) [Relative time] 1.1 {INR} Normal [facility] Comment on above: Result Comment: Therapeutic Range: Moderate Anticoagulant Intensity: INR = 2.0-3.0 High Anticoagulant Intensity: INR = 2.5-3.5 Performed By: #### C BC, PT, BMP #### [facility] [address] [place] [id number] Produce Buyer: Karl Klein MD #### ANICOT #### [facility] [address] [place], [place] [id number] Produce Buyer: Cameron Calderon MD PT Coag (PPP) [Time] 12.0 s Normal 9.0-12.0 [facility] Comment on above: Performed By: #### C BC, PT, BMP #### [facility] [address] [place] [address] [id number] Produce Buyer: Karl Klein MD #### ANICOT #### [facility] [address] [place] [address] Produce Buyer: Cameron Calderon MD XR CHEST (2 VW)on [...] Shawanda Aragon MD 05/19/19 Final result Normal [facility] XR CHEST STANDARD (2 VW)Orde red By: Serafin Shearer on 05-19-2019 Negative chest. [facility] Work Phone: EXAMINATION: TWO XRAY VIEWS OF THE CHEST 05/19/2019 11:41 am COMPARISON: None. HISTORY: ORDERING SYSTEM PROVIDED HISTORY: preop sleeve gastrectomy Reason for Exam: Preop 06/01/19. no chest complaints Type of Exam: Initial FINDINGS: The lungs are without acute focal process. No effusion or pneumothorax. The cardiomediastinal silhouette is normal. The osseous structures are intact without acute process. 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 IMPRESSION: Negative chest. [employer] Phone: Social History Date Type Detail Facility Start: 06-16-2020 End: 05-14-2023 [facility] Start: 06-16-2020 End: 05-14-2023 [facility] Start: 04-18-2022 Tobacco use and exposure [facility] Start: 02-08-2021 End: 04-18-2022 Tobacco smoking status NHIS [facility] Start: 02-08-2021 Tobacco use and exposure Former user [employer] Phone: Start: 02-08-2021 End: 05-14-2023 Alcohol intake Ex-drinker (finding) [employer] Phone: Start: 07-25-2018 History SDOH Alcohol Frequency 1 [employer] Phone: Start: 1960 Sex Assigned At Not on file [employer] Phone: End: 01-17-2021 History of tobacco use Chews Tobacco [employer] Phone: Housing Instability Unknown [facility] Vital Signs Date Time Vital Sign Value Performing Clinician Emilia henley 05-14-2023 11:28-0500 Body height 190.5 cm Olaf Monsee r OPTICAL MANUFACTURING TECHNICIAN-ELECTRICIAN RECTIFIER MAINTENANCE Work Phone[facility] 05-14-2023 11:28-0500 Body mass index (BMI) [Ratio] 48.25 kg/m2 Olaf Erasmoopher OPTICAL MANUFACTURING TECHNICIAN-ELECTRICIAN RECTIFIER MAINTENANCE [facility] 05-14-2023 11:28-0500 Body weight 175.09 kg Olaf Dechristophe r OPTICAL MANUFACTURING TECHNICIAN-ELECTRICIAN RECTIFIER MAINTENANCE Work [facility] 05-14-2023 11:28-0500 Diastolic blood pressure 80 mm[Hg] Olaf Ilyaistopher OPTICAL MANUFACTURING TECHNICIAN-ELECTRICIAN RECTIFIER MAINTENANCE Work Phone: [facility] 05-14-2023 11:28-0500 Heart rate 61 /min Olaf Monsee r OPTICAL MANUFACTURING TECHNICIAN-ELECTRICIAN RECTIFIER MAINTENANCE Work Phone: [facility] 05-14-2023 11:28-0500 SaO2% (BldA) [Mass fraction] 95 % Olaf Dechristopher OPTICAL MANUFACTURING TECHNICIAN-ELECTRICIAN RECTIFIER MAINTENANCE Work [facility] 05-14-2023 11:28-0500 Systolic blood pressure 116 mm[Hg] Olaf Erasmoopher OPTICAL MANUFACTURING TECHNICIAN-ELECTRICIAN RECTIFIER MAINTENANCE Work Phone: [employer] 06-02-2019 07:15-0500 Body temperature 99.3 [degF] Serafin Shearer MD Work Phone: [employer] Work Phone: 06-02-2019 07:15-0500 Diastolic blood pressure 59 mm[Hg] Serafin Shearer MD Work Phone: [employer] Work Phone: 06-02-2019 07:15-0500 Heart rate 62 /min Serafin Shearer MD Work Phone: [employer] Phone: 06-02-2019 07:15-0500 Respiratory rate 16 /min Serafin Shearer MD Work Phone: [employer] Work Phone: 06-02-2019 07:15-0500 SaO2% (BldA) [Mass fraction] 95 % Serafin Shearer MD Work Phone: [employer] Work Phone: 06-02-2019 07:15-0500 Systolic blood pressure 116 mm[Hg] Serafin Shearer MD Work Phone: [employer] Work Phone: 06-01-2019 09:10-0500 Body height 190.5 cm Serafin Shearer MD Work Phone: [employer] Work Phone: 06-01-2019 09:10-0500 Body mass index (BMI) [Ratio] 53.24 kg/m2 Serafin Shearer MD Work Phone: [employer] Work Phone: 06-01-2019 09:10-0500 Body weight 193.2 kg Serafin Shearer MD Work Phone: [employer] Work Phone: Clinical Notes 06-02-2019 to 10-17-2023 Olaf Cain, [facility] - 05/14/2023 11:30 AM Juanita Hopper MD - 05/14/2023 11:00 AM Starr Sanon RN - 06/02/2019 7:24 AM Serafin Jesus MD - 06/02/2019 6:43 AM EST Note Date & Type Note Facility 10-17-2023 Note Entered by Yousuf Pierce on October 17, 2023 07:43:22 EDT From: Ana Pierce To: [facility] Sent: 10/17/2023 07:43:22 EDT Subject: Medication Management Submitted: Complete:levothyroxine (levothyroxine 150 mcg (0.15 mg) oral tablet) Signed by Ana Pierce 10/17/2023 07:43:00 EDT Approved with modifications: levothyroxine (LEVOTHYROXINE 150MCG TAB 150 Tablet) TAKE 1 TABLET BY MOUTH ONCE DAILY Qty: 30 tab(s) Days Supply: 30 Refills: 10 Substitutions Allowed Route To Pharmacy - [facility] Signed by Ana Pierce --------- From: [facility] To: KAREN ZAPATA, LESLY To MD [...] 10 Substitutions Allowed Notes from Pharmacy: --------- [facility] 07-24-2023 Note CLINICAL DATA: Venou s [...] Signature): Romulo Wright 07/24/23 10:38 a Technologist: [facility] 07-08-2023 Note Entered by Yousuf Pierce on July 08, 2023 07:59:35 EST From: Ana Pierce To: [facility] Sent: 07/08/2023 07:59:35 EST Subject: Medication Management Not Approved: now on pulmicort fluticasone (FLUTICASONE PROP HFA 110MCG 110 Aerosol) INHALE 2 PUFFS BY MOUTH TWICE DAILY *RINSE MOUTH AFTER USE* Qty: 12 gm Days Supply: 30 Refills: 10 Substitutions Allowed Route To Pharmacy - [facility] Signed by Ana Pierce --------- [facility] To: KAREN ZAPATA, LESLY To MD Sent: July 05, 2023 4:32:01 PM MANAGER TRACK Subject: Medication Management Due: July 06, 2023 12:09:30 AM MANAGER TRACK On Hold Pending Signature Drug: fluticasone (Flovent [...] 10 Substitutions Allowed Notes from Pharmacy: --------- [facility] 05-28-2023 Note Entered by Yousuf Pierce on May 28, 2023 07:49:21 EST From: Ana Pierce To: [facility] Sent: 05/28/2023 07:49:21 EST Subject: Medication Management [...] [place] Signed by Ana Pierce --------- From: [facility] To: KAREN ZAPATA, LESLY To MD Sent: May 27, 2023 5:22:40 PM MANAGER TRACK Subject: Medication Management Due: May 28, 2023 12:05:03 AM MANAGER TRACK On Hold Pending Signature Drug: oxyBUTYnin (oxybutynin 10 mg/24 hr oral tablet, extended release), 1 tab(s) PO Daily Quantity: 30 tab(s) Days Supply: 0 Refills: 10 Substitutions Allowed Notes from Pharmacy: Dispensed Drug: oxyBUTYnin (oxybutynin 10 mg/24 hr oral tablet, extended release), TAKE 1 TABLET BY MOUTH DAILY Quantity: 30 tab(s) Days Supply: 30 Refills: 10 Substitutions Allowed Notes from Pharmacy: --------- [facility] 05-14-2023 History of Present illness Narrative Yrn Ricardo Date of visit: 05/14/2023 Date of : 1960 Age: 62 y.o. Patient Active Problem List Diagnosis Complete heart block ([facility]) Abnormal stress test Cardiac pacemaker Morbid obesity with BMI of 40.0-44.9, adult ([facility]) Bilateral primary osteoarthritis of knee Blister of [...] PE, chronic lymphedema, complete heart block s/p [employer] dual-chamber pacemaker implanted 2020. He is here today for routine evaluation. Patient states he has been doing well since last office visit. He denies chest pain, shortness of breath, palpitations, fatigue. Patient enjoys fishing with his grandson. Past Medical History: Diagnosis Date Anxiety COPD (chronic obstructive pulmonary disease) ([facility]) Depression Hypertension Hypothyroidism Sleep apnea No data recorded No data recorded No data recorded Past Surgical History: Procedure Laterality Date Cardiac catheterization N/A 08/23/2020 Performed by Brian Hilario MD at [facility] Coronary angiogram and left ventricular gram/pressure N/A 08/23/2020 Performed by Brian Hilario MD at [facility]ATH [facility] EP - Device-PPM Left 08/25/2020 Performed by Alexander Hopper MD at [facility] (EP) HAND RECONSTRUCTION Left SLEEVE GASTROPLASTY [...] Morbid obesity with BMI of 40.0-44.9, adult ([facility]) 3. Complete heart block ([facility]) Intermittent complete heart block s/p [employer] dual-chamber pacemaker implanted 2020 Device check [...] MELCHOR MD Referring Physician: Lesly Melchor MD [address] [place] [id number] LATISHA Harman 05/14/23 1202 documented in this encounter [facility] 05-14-2023 History of Present illness Narrative I agree with the findings in the scanned document. documented in this encounter [facility] 01-11-2023 Note Entered by Yousuf Pierce on January 11, 2023 07:51:29 EDT From: Ana Pierce To: [facility] Sent: 01/11/2023 07:51:29 EDT Subject: Medication Management [...] Pierce on 01/11/2023 07:51:09 EDT --------- From: [facility] To: KAREN ZAPATA, LESLY To MD Sent: January 10, 2023 5:18:47 PM CDT Subject: Medication Management Due: January 11, 2023 1:31:05 PM CDT On Hold Pending Signature Dispensed Drug: rivaroxaban (Xarelto 20 mg oral tablet), TAKE 1 TABLET BY MOUTH IN THE EVENING WITH MEALS Quantity: 30 tab(s) Days Supply: 30 Refills: 10 Substitutions Allowed Notes from Pharmacy: --------- [facility] 06-02-2019 History of Present illness Narrative [...] NICHOLS 1:03 PM documented in this encounter [employer] Phone: Evaluation note Diagnosis History of pulmonary embolism Personal history of pulmonary embolism Hx of deep venous thrombosis Personal history of venous thrombosis and embolism documented in this encounter [employer] Phone: evaluation note* Diagnosis S/P laparoscopic sleeve gastrectomy- Primary documented in this encounter [employer] Phone: evaluation note* Diagnosis Cardiac pacemaker- Primary Cardiac pacemaker in situ Morbid obesity with BMI of 40.0-44.9, adult (CMS-HCC) Complete heart block ([facility]) Atrioventricular block, complete documented in this encounter [employer] System[employer] note* Diagnosis Cardiac pacemaker- Primary Cardiac pacemaker in situ [facility]* Instructions* Stewart Golden DO - 06/02/2019 Discharge Instructions for Bariatric Surgery You had a Laparoscopic Sleeve Gastrectomy (69139) to treat obesity. Recovery from this surgery [...] scheduled appointment, please call the office at [phone]. Call Your Doctor If Any of the [...] sent through Care Everywhere. * Enoxaparin (Lovenox) (Tajik) * enoxaparin (Tajik) documented in this encounter[facility] Work Phone: InstructionsNot on filedocumented in this encounter [facility] SystemInstructionsNot on filedocumented in this encounter [facility] Summary Purpose Family History No Family History Records FoundNo Family History Records FoundNo Family History Records FoundNo Family History Records FoundNo Family History Records Found Advance Directives No Advanced Directives Records FoundDocuments on File Type Date Recorded Patient Greaser Helper Expl anation ACP-Advance Directive ACP-Power of Wash Mill Operator Latest Code Status on File Code Status Date Activated Date Inactivated Comments Full Code 06/01/2019 12:33 PM 06/02/2019 3:05 PM Documents on File Type Date Recorded Patient Greaser Helper Expl anation Advance Directives and Living Will Power of Wash Mill Operator Documents on File Type Date Recorded Patient Greaser Helper Expl anation Advance Directives and Living Will Power of Wash Mill Operator Latest Code Status on File Code Status Date Activated Date Inactivated Comments Full Code 06/01/2019 12:33 PM Reason for Referral Status Reason Specialty Diagnoses / Procedures Referred By Contact Referred To Contact Pending Review Radiology Diagnoses History of pulmonary embolism Hx of deep venous thrombosis Procedures VL DUP LOWER EXTREMITY VENOUS BILATERAL Consuelo Delgadillo MD [address] [place] [address] Specialty Diagnoses / Procedures Referred By Contac t Referred To Contact Diagnoses Cardiac pacemaker Procedures Device Interrogation Olaf Cain, OPTICAL MANUFACTURING TECHNICIAN-ELECTRICIAN RECTIFIER MAINTENANCE [address] [place] [address] Referral ID Status Reason Start Date Expiration Date V isits Requested Visits Authorized [id number] Pending Review 05/14/2023 05/13/2024 1 1 Additional Source Comments (unrecognized sect ion and content) No Status Records FoundNo Status Records FoundNo Status Records FoundNo Status Records FoundNo Status Records Found INFORMATION SOURCE (unrecogn ized section and content) DATE CREATED AUTHOR 07/14/2019 [facility] DATE CREATED AUTHOR AUTHOR'S ORGANIZ ATION 02/11/2021 [facility] DATE CREATED AUTHOR AUTHOR'S ORGANIZ ATION 05/19/2023 [facility] DATE CREATED AUTHOR AUTHOR'S ORGANIZ ATION 09/29/2023 [facility] DATE CREATED AUTHOR AUTHOR'S ORGANIZ ATION 10/28/2023 [facility] Reason for Visit (unrecogniz ed section and content) Status Reason Specialty Diagnoses / Procedures Referred By Contact Referred To Contact Pending Review Radiology Diagnoses History of pulmonary embolism Hx of deep venous thrombosis Procedures VL DUP LOWER EXTREMITY VENOUS BILATERAL Consuelo Delgadillo MD [address] [place] [address] Status Reason Specialty Diagnoses / Procedures Referre d By Contact Referred To Contact Diagnoses Obesity OBESITY, HYPERTENSION, COPD, HYPOTHYROIDISM, LIPODEMIA Procedures VT LAP, DHARMESH RESTRICT PROC, LONGITUDINAL GASTRECTOMY XI ROBOTIC LAPAROSCOPIC GASTRECTOMY SLEEVE, ENDOSEAL Serafin Shearer MD [address] [place] [address] [facility] Reason Comments Device Check Reason Comments Device Check Care Teams (unrecognized sec tion and content) Compression Molding Machine Setter Relationship Specialty Start Date End Date Lesly Melchor MD [address] [place] [id number] PCP - General 02/10/16 Compression Molding Machine Setter Relationship Specialty Start Date End Date Lesly Melchor MD [address] [place] [id number] PCP - General 02/10/16 FOR RECORDS PERTAINING [...] BE BASED ON THE PRIMARY CLINICAL RECORDS. [facility] VSS Monitoring [facility]. provides no warranty or guarantee of the accuracy or completeness of information in this document.
== END 2023-10-31 09:24 | disposition home or self-care (01) ==
LOC: VC 09:32
PROVIDERS: PCP Radiology Diagnostic Radiology; Visit Provider Radiology Diagnostic Radiology
DX: I80.02 Phlebitis and thrombophlebitis of superficial vessels of left lower extremity (principal)
CPT/HCPCS: 93971; G0463

== ENCOUNTER 2023-11-06 07:08 | Outpatient (OUT) | payer MEDICARE, MEDICAID, SELFPAY ==
--- NOTE | 2023-11-06 07:07 | VEINCLINIC_ITS ---
Vital Signs 11/06/23 07:09 Height 6 ft 3 in Weight 175.087 kg BMI 48.2 BP 136/72 BP Location Left Brachial BP Position Sitting BP Cuff Size Adult BP Source Manual Cuff Respiration 18 Pulse 71 Comment The patient's blood pressure is elevated. Varicose Veins Patient in this day for EVLT of right leg perforating veins. Herman Chaves MD personally performed the services described in this documentation, as scribed by Estefania Dhaliwal RVT, RDMS in my presence and it is both accurate and complete. Estefania Chaves RVT, RDMS, am scribing for, and in the presence of, Dr. Herman Patiño and in the presence of the patient. medial thigh: bilateral, knee: bilateral, calf: bilateral, ankle: bilateral and munoz: bilateral burning and sharp 6 11 years Worsened in recent months: Yes standing and sitting bed rest, elevating extremities and compression stockings Reports heaviness, edema and leg edema History of lower extremity trauma: No Superficial thrombophlebitis: No Family history of varicose veins: unknown Has patient had previous lower extremity venous surgery: No Patient has previously received the following treatment(s) for lower extremity varicose veins: Reports none Does patient have a history of : not applicable Does patient intend to have future pregnancies: not applicable Has patient had lower extremity venous scan with relux testing: Yes Support hose used: Yes Problems walking or doing physical activity: Yes How does it affect you: 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 Estefania Chaves RVT, RDMS, am scribing for, and in the presence of, Dr. Herman Patiño and in the presence of the patient. Status of ROS 10 or more systems reviewed and unremark able except as noted in history and below Cardiovascular Reports: edema, swelling of feet/ankles and leg pain with exertion Musculoskeletal Reports: extremity pain, extremity swelling, limited range of motion, joint swelling, muscle cramps and muscle weakness Integumentary/Breast Reports: itching, redness, skin pain, skin tenderness, skin swelling, new lesion, non-healing lesion and changes in skin color Neurological Reports: numbness in extremities and weakness in extremities [facility] Medical History (Updated 11/06/23 @ 09:27 by Estefania Dhaliwal) Phlebitis and thrombophlebitis of superficial vessels of right lower extremity ?I80.01 - Phlebitis and thrombophlebitis of superficial vessels of right lower extremity (ICD-10) Non-healing lumpectomy wound ?T81.89XA - Other complications of procedures, not elsewhere classified, initial encounter (ICD-10) Other reconstructive surgery as the cause of abnormal reaction of the patient, or of later complication, without mention of misadventure at the time of the procedure ?Y83.4 - Other reconstructive surgery as the cause of abnormal reaction of the patient, or of later complication, without mention of misadventure at the time of the procedure (ICD-10) Cubital tunnel syndrome ?G56.20 - Lesion of ulnar nerve, unspecified upper limb (ICD-10) Pacemaker ?Z95.0 - Presence of cardiac pacemaker (ICD-10) Obesity ?E66.9 - Obesity, unspecified (ICD-10) Hypothyroidism ?E03.9 - Hypothyroidism, unspecified (ICD-10) Osteoarthritis ?M19.90 - Unspecified osteoarthritis, unspecified site (ICD-10) DVT (deep venous thrombosis) ?I82.409 - Acute embolism and thrombosis of unspecified deep veins of unspecified lower extremity (ICD-10) Arrhythmia ?I49.9 - Cardiac arrhythmia, unspecified (ICD-10) PVD (peripheral vascular disease) ?I73.9 - Peripheral vascular disease, unspecified (ICD-10) COPD (chronic obstructive pulmonary disease) ?J44.9 - Chronic obstructive pulmonary disease, unspecified (ICD-10) Asthma ?J45.909 - Unspecified asthma, uncomplicated (ICD-10) Lymphedema ?I89.0 - Lymphedema, not elsewhere classified (ICD-10) Venous insufficiency ?I87.2 - Venous insufficiency (chronic) (peripheral) (ICD-10) Varicose veins of bilateral lower extremities with pain ?I83.813 - Varicose veins of bilateral lower extremities with pain (ICD-10) Surgical History (Updated 11/06/23 @ 09:06 by Estefania Dhaliwal) H/O gastric sleeve ?Z90.3 - Acquired absence of stomach [part of] (ICD-10) Family History (Updated 11/06/23 @ 09:08 by Estefania Dhaliwal) Other Family history not known due to adoption Social History (Updated 11/06/23 @ 09:09 by Estefania Dhaliwal) Within the past year, how often did you have a drink containing alcohol: never Score interpretation: A score less than 4 is consistent with normal alcohol consumption. Smoking status: Never smoker Non-prescribed substance use: denies use Meds Home Medications and Allergies Home Medications ?Medication ?Instructions ?Recorded ?Confirmed ?Type albuterol sulfate 90 mcg/actuation 1 inh inhalation Q6H 11/06/23 11/06/23 History aerosol inhaler aripiprazole 20 mg tablet (Abilify) 20 mg PO DAILY 11/06/23 11/06/23 History cetirizine 10 mg capsule 10 mg PO DAILY PRN angioedema 11/06/23 11/06/23 History citalopram 20 mg tablet (Celexa) 10 mg PO DAILY 11/06/23 11/06/23 History fluticasone propionate 110 1 inh inhalation BID 11/06/23 11/06/23 History mcg/actuation HFA aerosol inhaler levothyroxine 150 mcg tablet 75 mcg PO DAILY 11/06/23 11/06/23 History (Euthyrox) lorazepam 0.5 mg tablet (Ativan) 0.5 mg PO DAILY 11/06/23 11/06/23 History oxybutynin chloride 10 mg 10 mg PO DAILY 11/06/23 11/06/23 History tablet,extended release 24 hr oxycodone-acetaminophen 5 mg-325 1 tab PO DAILY 11/06/23 11/06/23 History mg tablet (Endocet) rivaroxaban 20 mg tablet (Xarelto) 20 mg PO DAILY 11/06/23 11/06/23 History trazodone 100 mg tablet 50 mg PO DAILY 11/06/23 11/06/23 History zolpidem 5 mg tablet (Ambien) 11/06/23 History Allergies Allergy/AdvReac Type Severity Reaction Status Date / Time No Known Drug Allergies Allergy Verified 10/04/23 14:35 Exam Narrative Exam Narrative: Patient has noticed significant improvement in non healing venous ulcer. I, Herman Zieber, MD personally performed the services described in this documentation, as scribed by Estefania Dhaliwal RVT, RDMS in my presence and it is both accurate and complete. I, Estefania Dhaliwal RVT, RDMS, am scribing for, and in the presence of, Dr. Herman Patiño and in the presence of the patient. Constitutional Documenting provider has reviewed patient's vital signs: yes Common normals: oriented x3 Lymph Lymphatic: no lymphedema noted Cardio Common normals: regular rate Rate: regular rate Peripheral pulses: posterior tibial pulses present and dorsalis pedis pulses present Extremity Common normals: normal capillary refill General: calf tenderness and edema Right lower extremity: upper leg and lower leg Left lower extremity: upper leg and lower leg Neuro Common normals: oriented x3 Assessment and Plan Assessment and Plan (1) Phlebitis and thrombophlebitis of superficial vessels of right lower extremity: Plan Plan of care: Patient in this day for EVLT of right leg perforating veins. Risks and benefits of the procedure were discussed at length and informed written consent was obtained.? Time-out completed for verification of correct patient, procedure and site.? Staff present during time-out: ? Herman Patiño MD, Estefania Dhaliwal RDMS,DANE and Grecia Nielsen RDMS Time Out Time____0756___ Patient prepped and procedure performed in usual sterile fashion. Risk of injury related to use of Diode laser and/or laser devices? __ME___ ? Serial number of laser used :? [id number] Control panel self test performed, electrical cords in good condition, floor is dry, basin of water available, fire extinguisher in close proximity_EM__ Polycarbonate goggles available and Laser warning signs outside of doors___ME___ Eye protection provided to patient and staff in room_ME___ Use of laser retardant drapes and dull blackened instruments as directed__ME___ Use of nonflammable prep solutions and use of saline soaked sponges to protect tissues as indicated _ME___ Laser operated by ____Dr. Patiño Physician verbal confirmation laser locked in place__ME__ Laser start time (date and time) ___0756 Laser stop time(date and time) ____[address] _8.0___ Site of Laser Treatment #1 dist/med calf Average laser use __182 Joules Average laser use___23 seconds Site of Laser Treatment #2 mid/med calf Average laser use __130 Joules Average laser use___16 seconds Site of Laser Treatment #3 mid/post calf Average laser use __185 Joules Average laser use___23 seconds Pulse continuous ___ME_? Pulse intermittent ___ Evaluated patient for signs and symptoms of electrical injury __ME___ ? Skin clear at insertion site __ME__ Patient tolerated procedure well.? Right leg Coban dressing applied to access site.? Applied Right thigh high leg compression stocking. Will return on 11/20/2023 for Right leg limited venous ultrasound and exam. IHerman MD personally performed the services described in this docum entation, as scribed by Estefania Dhaliwal RVT, RDMS in my presence and it is both accurate and complete. IEstefania RVT, RDMS, am scribing for, and in the presence of, Dr. Herman Patiño and in the presence of the patient. Procedures Procedure Note Date of procedure: 11/06/23 Pre-op diagnosis: I83.813 Post-op diagnosis: same as pre-op Procedure: EVLT of right leg perforating veins Anesthesia: none Surgeon: Herman Patiño Disposition: no change
[2023-11-06 07:09] VITALS: BP 136/72; PULSE 71; BMI 48.2
--- OUTSIDE RECORDS SUMMARY | 2023-11-06 07:11 | XMS_ITS | CCD ---
Author Organization [facility] Care Team Providers Care Oxidation Operator Name Role Phone SERAFIN SHEARER Referring Unavailable LESLY MELCHOR Primary Care Unavailable SERAFIN SHEARER Referring Unavailable LESLY MELCHOR Primary Care Unavailable SERAFIN SHEARER Admitting Unavailable SERAFIN SHEARER Attending Unavailable LESLY MELCHOR Primary Care Unavailable Lesly Melchor Primary Care Provider [phone] CONSUELO DELGADILLO Referring Unavailable LESLY MELCHOR Primary Care Unavailable Lesly Melchor Primary Care Provider [phone] Lesly Melchor MD Primary Care Provider [phone] LESLY MELCHOR Referring Unavailable LESLY MELCHOR Primary [...] Dolce, Srinivas R Admitting Unavailable KAREN ZAPATA, LESYL To Primary Care Unavailable PETER Redmond Admitting [...] Care Unavailable PETER Redmondine Admitting Unavailable PETER Redmondine Admitting Unavailable KAREN ZAPATA, LESLY To Primary Care Unavailable PETER Redmond Attending Unavailable PETER Redmondine Admitting Unavailable PETER Redmond Attending Unavailable KAREN ZAPATA, LESLY To Primary Care Unavailable PETER Redmond Attending Unavailable PETER Redmondine Admitting Unavailable KAREN ZAPATA, LESLY To Primary Care Unavailable KAREN ZAPATA, LESLY To Primary Care Unavailable PETER Redmond Attending Unavailable PETER Redmond Admitting Unavailable PETER Redmond Attending Unavailable PETER Redmondine Admitting Unavailable KAREN [...] Propensity to adverse reactions to drug (disorder) [facility] Repository Medications Current Medications Medication Drug Class(es) [...] hours as needed for pain. 0 Active [id number] 200 actuat albuterol 0.09 mg/actuat metered dose [...] aftercare (1 source) Drug therapy finding; Translations: [alf (current) use of anticoagulants] Onset: 9 12-03-2018 [...] Test Name Value Interpretation Reference Range Facility Coding Summaryon 10-30-2023 Coding Summary HTMLBase 64 JlzbwxrlTIc3yYn+PGhl YWQ+GM1IDFHkY78wcGZp fY9zM9LLMXaHQmuiPYRC GRwBYiGyuhPyTH9kbIMa ZXJu IC8+IK1bVPJvIqqlmSTg e6Y3iAW3T87imw8bWYhx wIM6RZPiZxPbgduro0kv pQs2LMblDaslLiJf BJMxcC06SBH6eJ47Dr55 yUZfbVHfb1qesUo7BkBu MESmTXQ9lUlvYCnpp7Vx CVWyJ22zyWQpm1V2 IGNvbGxhcHNlOyBlbXB0 yX3uFAkasbdbb4pbwkrr Lga3rr86qOZth8H2kKI8 A5ZmmxE4VHKnqSRe HgvakOOYaB7ketiqj4ib mnarDlIlUHVcKSa8PVy4 WEEzvYujPrMnQZ75CMS1 YFKndoKxR7QaGDQs lPoaRgD2j2V6Al8ZW2JW BkjnY5HAHAPTIWiclAX+ QD49db33N7EiMwheZrw3 NLMeDSZ3aCG1rU1f QISdQCcif5E1sOW8J7Yk iuYjnh2zw1vwLLWyNDyb Q14teOEgv5I7KMKzzPY6 VTFhtBivEgBsgK82 Oyc+FRYzkPkei6BxXosh q4btw1lisZy9YaksZKSj olHtjWcjXZA0x2NeIn8z WDNveAJ5fRZ1pH1j MoQyGuY2EMdlD030OvKw iNMcCnueE01oZ1OzcMD+ HOCyAkf8DKQsbRbgXE9t S5XaMLZexvhtrPCy bTjaIO5gLCVgfdthXAFn iM4nTLQeV7b4EyNuDoA6 RPytE4KyMYRfycwgAu28 xU0oZpEgJjT7SZku S8OegiK0UXRjdNVxZEhv QIM7X35ak6B6MDHcOOAe MUJ8gYL3jS1wmZnovkfd bGVmdDsgdmVydGlj DGttOMkyY434JWHwlVpv PkNvZGluZyBEYXRlOiAg MDYvMjYvMjAyNDwvdGQ+ OOAcLLV7dEpxMKRc sNPoWYsbVc6rfKpwzMhe BI3nKJWyqjviZJVqxW6o UJPrgWGjkFqpIR8xNYUd pxwnt213QlSuWEI5 MLRqsDDaB4XguX6rLmBo CAZpLPFsS0FcwUXnCSly J515NBiiGgK6RCSvfqGj K0WwXIDjjWdnEfI3 q8H5At0Gg0AhiiliC9Xt vLRvGyAdZtpuQKb4G5Km PjwvdHI+HH43HGVtKY25 DKj1PMN0cXsbJMzu SAKqH6SikG9lOhEqTFIx ZGRkOyc+PHRhYmxlIHdp ZHRoPScxMDAlJyBzdHls BA4xXs6sQHNzOLDz sWkvoTBzBsUlx2hqBQSi ANgfVB7gnLteY7HnhHC1 YDAwp0t5Rq81Z16oI8Bc dXA+DKCrgZS2kAW0 jI8dGhNhZbY0GSspU623 KsNeeBBcGvgmq0hjg3ph xDn8XnP5EORakrVbnOef WKA5h5LnUs63U77m IHdpZHRoPSIxNSUiIHZh cEkfrs4owH2dKi9+PGNv fOF8hIK9yO0cPlCmQeF8 NIrzR305PnQewSBb Sruhf4stq4ozeWg1QjMj UDYthvLizKfoVAQ2w1Rl Kw16N5WvbRhye1OrQai0 qw21rUHme3F3oYH4 I8EqOEDacpwbfTOfoAcm ZA2fEKIabhkjBXWjaX4p WPMvE0c5AyTfCqA0FQuj P1TqjsG4MNAllBMg GMQcoKEFhW4ulrdaw3zn xixbVtVzEASiJOt0RUa5 MJUmkPhbAcZxRWJ1VpX7 MNF3uLXwlO2yzExp aepzgK0aUad+XRK9lLMk iAHVIF4wDuslsFI+PHRk AKV8iOkbBTfnQHKkyH5v EEPkQ8h3PgAhHrK3 TGhuR2JisiQ4IRFzwHEg UXRkrMDAkF8clonnp9rf vypyNgAvCRGmLAe6SVm8 LWFsaWduOiBsZWZ0 SyV2MPE1mPBbcG0cqBcd jywwpJ6zEpt+QmlydGgg DCD4MSe8S7AySaz9ZKYl rAleFJ6gmNLzERea Wp7apIoutBloGR5kVYJh wzyoq882AmRgm5kdSSCy aHPzRUdxSQN7J44ez2A9 MBIqFAMmKFA3tMG9 eV9qvPjgxfrkcYRxoCnf czLrsGscYBeuSZyfL411 ILZgdJxdIlKgLIe5Z4Zu Bux7IXFjgLrtDR5a aPKzGKiuFb7fgHhswWlm KP9tYQWgthidu200YhJk k5gwMVKqcPVhQQgnDJZ8 L32ru1J4HZMwBZMp UEJ0kCC1tX4kvBifillg bGVmdDsgdmVydGljYWwt MFxrY587FQShiQwhNpCb qXf8H4XgTkf0MZRn fOfdII0uaONnBTtpCj7y zXhqqJgsIU3zJDNneztu a281TcJhe5gtGKBelRYf LRllUGC8C03tn4J1 SNJvHXCcFQN4cBQ8jW0h bGlnbjogbGVmdDsgdmVy rRmbFSwwSPdiE866ERSc cDsnPlBhdGllbnQg HQlgQYr4F4QkZkmvjSD+ HJ32LFWqYD70rRIdyQMf k2csrNx6WrEjAARiJAF9 xLpwKPdpm5SmGCTp I82muYKrp2Q5CSIiaIiq uBGkFaFcnXT7pV1mOMig bnmns6omoygmMlvrs2uy fp81uN27U30oJZem ZHRoPSIzMCUiIHZhbGln st7zoK2sBp2+PGNvbCB3 lPB5kX8pMDNvMjL5BDyj Q336UrRiqGDaVsqe a4lav2tuoOb8EjE7NPLz elYfcLnnJKZ9i3SaTh72 H01cDFdrFFYiQDLbQNNz AMEldEpwps6vpQ6g Ii8+MWLohGM0sEU5hW3t VcDaGvC4RNcwD035SgVe dTVeIfhpH36lO4FzjJN+ AAQmMfr8BUWwsMnq DX4yhDXyAQvtLa9dIWU0 YxMgSdRhGVyqO6DyVJUi kvhqtjxhnYI9ENXwNZGj vU06Av2roIcdPGId iMAKdG7xajccz0ypbihn ByZjGTKySYp1TKv4CQTa kQbhIuHxPAY1VrS0UGA1 jSTucD3uoXzzkbfu uR2wN3BgXTJgzngaMv32 rY3qSpKhJiO6QFkuRht+ T9GVQrylYM0LO2hIFOxk SzwvdGQ+PHRkIHN0 bUpiANbyODEzbX8jTBAr U2a9FjTrJcI1AWfpF2Kg EPTuensgZm43pX1kJbIp IpP0XPruR0ApepA8 PUOfiKFaMKxbHYA5W45h w0O5OKAvSUCcATV9bNL9 kR7pbTnhugldbCZnlPwn dmVydGljYWwtYWxp H324YUUtnFsgRiFeVoG1 QuD4ByB2S6BiQxm5NNFb aMcuFT5gaDJdDRbqNu2y eSffkWkcUL7gMCFp mrwmGXVtsX5lPTAvyZRg oBfqYM3mYGNomxibk382 WoPzDBU5EZMkoUIhO6Ar iN7eSnDnBIOcOSPt M6JliRSnRLcaS310LElv CmA1AHDwwrIuM2QpUALp mXmhYsG4x1D3Ky64EDHO ZWFyczwvdGQ+PHRk MOE5tKckAAtzHGOryX4m BCClU8m2GhPjKyJ2HIrk N9KqZKWlkdwoPi89oX6w FlAeUjV5WIokF7Ox vlO1NAYctIBmXGvtCGS4 O29gh3K1SVQhGRLvZJU6 tIL4gH7ypYdcjqbtoMOx dDsgdmVydGljYWwt VYiaZ190JUXgkKyrXc4J DVS7C2HfFgz9CCZevTsp FB8nnFIaJJtaOc5ilVyv hQleLS8dDTIossuk QHNboO2rFRDfvWLqvVrl YH0qQKRpyagwa236AjHg KCA1MWJqeQWfH0HodI5z JeGsEBSzXTJrI7En cSLbOFlcR644UQsrSoG9 DMLjyeKfU7JfAQFmnXgo AmJ2c5T7Ym8VAZwcbMV+ UK19fw31T1EwRsgo Flf2AZIpLCC6eYA0fM2q KDDsWAzlg3J4oBQ7K1Qg unJfvj4cq8rcMYXmKZmx P32olIMya1O6VGTr hER0MHXybJcyRdYtuK92 Oyc+DWPzpRbfs6MgAvxv k6uev6dzjJx5DuNkJTIk vaJfxIpsZVF8b2Nk Es55S70pXQkpEDCtXNWz SAOsLLVmoYytfs3pvX7r Ii8+UQKotKR0wPC6gM6n IcZwAhW5ZCxeF655 DvAmbOImUluav2fjv2xu sSd0HyDcPXMttbEytWak UMP0k1DuHo33R5UjtGxp h3ZnPwp7ai81bLUc q5M5bFV2B1QcFJAkwece xSOraUiuBO6wTCQbnmzq GPFemP2wADPcJ0w8KnEj NcV3NMahA5LgfgT1 DMQzdTKsWGZaaEQCvO3q gaipj9tsvqdwGdTiEPGp EAg7MEz5AOZtrQzaLwEx AMW7QgN6XWW0bGTa wB4erCprjentxV0sOry+ RSk9m5pedPQsVK6voWU1 TM90BF86lKDws4I7eHI0 Z8NqCLKthbagfxod hVI8PPMhAPBifJ32Ze0b oEoeEl3lZZDzGPE8LLNk jYYqA0KpaL7dAuUbEFSi LNKxL1PkzHBoLPpc S065BEtdZeK6WDYmxqIi I3WzSSUwcSxfUiD4i2E7 Pe6PVX47WE22UY52iTXb i5U9uQU5G9RvTEYx uveosdkejOT3PHQoZQPz qT20Gu3abRgaRw2kKXEs JYQ3HOJobNAeY5WtvI2c XsYfJOEnFHYlI8Ny xHIvEYpzM366FCahIuX5 SSNbhrKlX8SyKLCkpTnr RmZ8e7W8Pg0YJl47UC54 PS36mGQxo6O3pVK8 L6SfBVBajtbkzyrbiTR0 EGZmYTOaiX50Gq7xbJtb Jw2uSLVfCRD1BHWngIHe Q6JbfE4mBzAaTWEs ZGDzI8QwqXBqALqrD912 EIasXfL3TLTpzdEzS1Fp TYRrcAbgNyK2o0D5Eg7Z TNcfeao8P4PfVcrk dHI+IS99ZUOkQL65tOZw rKIeo2ctiUp0QlDkELNz JQI7ePedROvlq5YoUOTs J88igQRnd1O9KVVh bGx (more content not included)... [facility] Coding Summary HTMLBase 64 NynqdaknGNo1vXs+PGhl YWQ+HW0DLGHtL83rbMUg bE3bL3GCUKyIOirvLPSO PUxDFpBinpOiDK7mcZGl ZXJu IC8+ID9dDJBhYmufyOHy l6A9aNB6M64ftz0fVZpp hEK5QQLcYaOstvfka4gq dJg4OLjmRpkrJdFu JZUrqB36ADI3tI27Ul37 kVBgqMAuu7soiGw0SpNy NXXvRCQ8bXusLMeur2Ae STTpB65pbHOlx5B5 IGNvbGxhcHNlOyBlbXB0 aW1oFMxhlmulb1tmdxro Qdz0yt97nIKac9F0xCP8 Y6LpkbS1HXGncZLu PfunkJYMrL8anzteh4ch ogsfOzAkFRQrNEm2UJh6 PUBvlKxoAjJaHQ64NVR4 MPSzqvRqH6AhOWQi dFriQmZ5a8P8Xs7AP2KU YxpyC9ORQUPXDZfklMX+ RS32bn63I2EpXqzfIpu7 TOPpKYW7bFJ1gK4u WRAnZPcyt4Q9qJK6B4Uj kwEzcb3fp1ebGOPpBEtk M49liMSbz9L0DNIndAU9 SOAbeZdcBlYfeU59 Oyc+EOAueWqya3GkIxbh s9mvl3chaJu7HevtQWQl szMmgNlqAIW6s6MlOp5g STCxlXJ9xWP5uO3c WoDdXbW1LOksI485LmOf eSYbEajfG51iE4VfqMH+ YURdLyf5FNWrgDujFN4i K7UdCOXgtblfvOUr uHcyWS4gGWUbmjucVGBn tC2yMKCeE8u5QnEvKwL1 HWhtH0FcLYNsgawyQy08 fV9iWcKoImN2UDwa G9OqidG0CHBbeRWnPLec GAG0G86yb8Q0LCIoEPWz OYI9jHO3pW9ubFsrsndz bGVmdDsgdmVydGlj ZAzhZPwtH222TTAdpPtr PkNvZGluZyBEYXRlOiAg MDYvMjYvMjAyNDwvdGQ+ JEAaXSQ1gNnvSZEc jBYyPHypHk4bvSwbnQja EQ9yKBHvkzbkRSQcdF4i UFLqjSQdjCfqDV0hZJGi hxgao509SwWiTDR7 ESIssEVgY1ObnU9vWsRv LNMcUCXhV5EhfOZoPFwr J307RYauYmH3TSAyrmYn N9ZySTBgbTtkPnI4 g3G3Gr7Gj2TcwqzwB1Vs bDBkXcGaVdgiJTd7B5Ac PjwvdHI+LY19XHVuWX31 TDk4XTY3nHirWUrp DBXzT7MvtQ1sSeEvALOr ZGRkOyc+PHRhYmxlIHdp ZHRoPScxMDAlJyBzdHls HK8eGv8xBEVyRFMn qRhnvMOtIpLsf9myRMSh WPhtYG6vcDdyQ8XijXP7 WTYiq6n1Qe17I29tL4Oq dXA+XXTlpAO9bHD2 mA2sDyChHbR6TAwqU850 NfGcaZQhEgvge3rqe2wt jYu9YmX0QUNkjxDnwFxe ZLN1n9RwHz31Z13z IHdpZHRoPSIxNSUiIHZh kZyrww2lsI6nYs0+PGNv yIC1oVE7iN1dDjDvOmI0 LFtmO299PmCpqITw Pxbvd0dvd7plnWv3XvFc FWApwxRdeZzxJWH1g6Tm Eh28U0YkvOmgf5KlJxf4 fv23iYQxu7Q6dUW6 U4KySSXeflgywBTxtFry MC6eFUNisuflOZIffH2h JYSsV2h6BgUgMfG7NYqc G8ZnhqP6RDRwkZTz PWDeiXNBaR0latjga2yn xbcfZgRjLJWqAQn9ZZc9 MNEyuLcbEwTzBEW1EaV1 NBA5eTTijX5ruXci qbnopW4sSsp+TYN2dSNh uCNQQK5mHvkjtXX+PHRk ZGD0gDwvEQhyFMTioR9w KPGmC2h3CvVdFvR6 EWfdF7JmcoS3GIWreXWu SHGksSQTlI5jhkcrh1pc nxjzJjIuUMYqCCn8GCh8 LWFsaWduOiBsZWZ0 AoT8MBJ0fNAfvW5reSvp swtzlV0zGee+QmlydGgg IZU0RRr4D4EsMub2LCXt yUgxSC0bdFVtGGsn Rb8qiFbsgVnvSE3eBQRi nlycy731MiYvt9brRGQa pHHqDAacYLC8V20do2T8 YXThSUXeXGI5vKR1 nM4ycTsnbujrqSQxzTph ghIjeBpxTLrsWDeiL383 IDKuhUcgDeYtAKx6K7Sc Cap0VMHusDudHC0b cEMiDFmyPb4jfXzubMeb KD0cNXIwgjmqs046IqDj a8txVNKqjFHfYBtoPEH5 X28fr2Z0UVNnTQMx CVO4xPN0kC1abQjhbqks bGVmdDsgdmVydGljYWwt ZMzwJ490KHRtkEkqDuYi iWb2Q8HuPre2RKHc qJdoBV3kvBJhMJpiNr9f xAltdDmfDG2eEXQtrnvq c108HbXcv8deYHAkaGDj JSsdARE8Y94iz7T8 PWNrQTUqMJW4nHJ7lK7p bGlnbjogbGVmdDsgdmVy pUblVGpmGRyaK600SVQh cDsnPlBhdGllbnQg OJanMLs4M1WgNynzvTY+ VK11SJPcBB50kXYokEVm x0lbuKf2WnFpEUEoMZS4 cMngLCdgx5YwDQBa W23kfXDee5J1AFIrzAtz hWMsWjNlaHZ7nQ5aTPpk smysi8aitfygOqdnj7tw bc75dP33M94zWKkl ZHRoPSIzMCUiIHZhbGln mu3xaT4kDz5+PGNvbCB3 zSV5zV8cFCQqPwY8AYrb R563OoOtiOJwBdxl a8axc5wfyVw0FiY3OODh mcCufMpaLOF0y0MoDd88 K71uKTpcXSVkCCUdECTf AADfqBklfj7adH1h Ii8+XMAxyWP2cFO4uM9r QxQbXvY3ATqmW965DbOq nNBlQfkiJ62jK9WgbEP+ KIGhYsv5WRRbiRxh YG5pzRSjRIkpCm2fBDG2 EgIzBcGcDWfvI7TzGKYs hojsiwiiyLF6CELbQEPz xO67Fs1obNajWNEp wOUKmN8zftzjp9bhkwkp XyHyDXWyWQf5OCv4UBDu yWvdPyHsMUV6IrY1EUB9 uJLwnI2ofEtbhlfl xP5hW2VsAHJyojvxHt89 uJ2iVrLsBsK6CAwrOln+ H5XRWdjfYP6YR9aNCLgo SzwvdGQ+PHRkIHN0 hMspNUizARHekZ5zJPQs G4j3KgBjJuB6WJxiX5Fp UUNbcrajWo96jG0cInTe IiP6NRdcV4GadnE5 MHUhvONoIMaxASF1X49o b0P2BUPcOILsPDS9pPA5 pU1boZbcmppffCItqVau dmVydGljYWwtYWxp R300ZGAeaVwqLvFjQvK2 BpN0LyY2A3HwDes6OJPa hWfgIX3ilMTqLTdlPi4j cYielLlbBO0uTYFx mijlZCZkkA2iKPCchBZs hEbgQD1rQOYetycje863 TnZpAGR4CIThjNDlQ4Ze cX9lZtGfJNQcSLHs W4EnaONdHLkpP116ZIhj ZuY5OXOsggIuW1CsTWPy tMtqAvD0b6B4Xv33RJOT ZWFyczwvdGQ+PHRk ECQ6xNeoGExtGNVtvB4r HCVqT3d9BjTnNtP6UTzt I7MdUXEdemgxEt93xL9h AiEvZuD4MSnjT9Jd rqB0LAHxnFJiGYfmARY8 H93fa9I9RSXvKEJkIMU5 sPT7nD6ntZoccuvpdJBl dDsgdmVydGljYWwt HFylQ250PMCjbWtpAr1N IAR8G8SdXjc6AOBcsEsd XF8xqKBzXUdmRj2lbMcp kBwzJD7nJYZmxchv STIaaW6rNCPjzBTkhCzn YN7gZZJiyanan505FxSb VST6TMLmpOPoC3SgfW2t PrIuFNWzGQZpG5Tq lARfFXiyW777ILvsTtG7 ZUFylhCmA4SmZTWhaOpp IhQ0x9L1Tf2CIQnufGA+ WY77ff66A6CjYmlu Lir2VMAxKCJ6kLG5rH5f PRJhDPkgx7W4zQO7F8Zx gkWrys2ve2rtMRSgGBpr A32qhJKfw3W0WEJg eJC8SEQotTeqItRicF30 Oyc+EXEfmZrsh1PtLguy c5myo4uumJt9NeWsCZYo huEvhVpyVPM0i4Gq Xp25U01nJAxmREKmLSTk VTPmKGCejTliby0jfA5c Ii8+NMGwrRB1dBJ8bV4d WsBeRcI3LNvbV886 FeTvuQDwIqiym6nci7ug xDp8FaWlRODkqwBipRmn MYY2j0QtFo98B6MofQyq p8BfGak1rd40eYGi b8Q2tDS9V7FaPSWmmxun yXMgiEkgWT0lHOOminjs DWMygZ7iNPJlR9j3YwFk DtQ0OUojT8VqgmK6 QWMshRMaIUNwnLOZoS0w xckom3eklijpRjGyZALh YRe6KUh9XXIgzNmrMvDd XRK3PmK2RDU2fLHc qS1zeKwthfjnbO6iWjk+ VSv7z3idoXHpDN5afRH6 ZG18CB04zJWdb1A3dLI4 O4UmPLUbsmfpeaal rID0YKSwKKKnhC25Ro3i iOkqBb6hMKNfWYW6FPYz tPScF1QsvG8aJiTjZEGf QONgK2RftTOtJKhw M244NAphUhI7GIYrgaCi E4MwHSPppInxJqL9u8D8 Bh1XSM67OH80PP27yUNr x3T4qUE1E3YeJDKv saymgvuikZZ0EUYgDCHq tN33Qf7giSszYa3wYKJu SHL1WTRlaDXlX5LlbW5a TxZzICPyGKGzC0Uf eNAuEQzkR886WOklIyT6 ECFpyrNzS4YfMSLrwTpz UnM4a9L5Lt9OYw27XP59 ZF29yNOmx7M6eFX7 L2ViDUFoyifalbzffYW3 MOZsHFSlmJ96Ue4ydAzg Fh8zRVOhOSH9AMOkaRSe A7ShlE1cYnLuFDQh SFOaR1UfaJZsVAzvX753 WNziBvA2GLToqaUgC8Og RTZsbPojFlF1h5W8Wr2I XUlmthm2I5NsNkju dHI+HU21HJLqIB95tAEw wYMii4dgmAq9SmAbMISe MNF0fVckKCuci0DcZZJo K85whHGhg8B3QRQm bGx (more content not included)... [facility] Wound Care Noteon 10-28-2023 Wound Care Note [phone] [id number] [email or web address] Wound Care Noteon 10-21-2023 Wound Care Note [id number] [id number] #[email or web address] Coding Summaryon 10-16-2023 Coding Summary HTMLBase 64 DwcuzeeiVDo4dIb+PGhl YWQ+SA3BHLPgF03cqRFm sZ4oL6RIHAgVPkrcALSB XFsZFwEitfLaTB4ojAAq ZXJu IC8+PF4sDNGoEyhoeENl v4U5vFU9R04ala4jIUdy cOA8CRCsSzXcwxpje0gm eSz3QEboWcuzKjLf EXXutO98HNS4rG14Qr91 gSMaxELxl3xxuNd6FmKt EKRwBHY5mZpoLYbdb9Je CUYeS02swFWet2B7 IGNvbGxhcHNlOyBlbXB0 sK8cERawiimbr4dujujs Ifi2et12sCLyr6W8mIO6 D7WgmaV5REIvnNOc ZgwbxLGErQ4acrrph0ds gnywEyUhLMKwFWk4ZHt7 ZKWddEicKvWcRV26GXN4 HTUstwZwA5NqIAQc hTvhAtK5u0G9Ij1RA0DD HulbX9YYXUBIUKmsxPC+ IN56cr99Q3LmNtdsUwq3 HSGyQBF7wWO3iV2l MZNkAIqfm1J3xKT5Q2Ql xhWhug7lo3ypSNLfIHav B35hvDDfw0L1KHEueWM5 CJIxuJrpVfWjqQ44 Oyc+WSWmpVuzd1YxGiev x1nfc5tufLp9KquqUQUv vtLwwCjkBOV7q2RsTc9y LCUhlRO1kJY0rV5e FfNmDdJ8TBchD528MqNw kEZlLwicH46uJ0EjnDC+ TSLzVdm6ZJXatTexGG8n O2SrQVCbodjiqRXc eBdpVB2mMAXfgzphXLSx vU2rHKLsJ5x8NzRlMjN1 WPctQ9DiBUDupojhZk68 gQ4tTpWiMmX2CZmd P9MwbuA3BXCshHJbZOmd KKZ7C94ho4V9QACoGWDs GCW6rZY8bK9qhNgxudnq bGVmdDsgdmVydGlj NLbhAHezE359UEWzmHmy PkNvZGluZyBEYXRlOiAg MDYvMTIvMjAyNDwvdGQ+ JXIiSPB8nCltGKMc aMGoJZyaQw9hwPgsvXth UX3yTARowykhFADxdW7o TPShkZNqzXedKP4vZFEx ixtvp669DgFwIVH2 DGNusXAeX9MhgE3dVdEu SWDyMAWvF6YruMSvZKnf H278ABbkCdC4IKOddhIq R6EzVDFizDxnOdE0 o3F2Mr6Sd5ZzimboZ4Ap mXSoGeCrCbuvCRa1B6Px PjwvdHI+EW43THRzBB71 CKp2NRO4yCppDAqj OYDcH1LyiW0aIpXgMAAk ZGRkOyc+PHRhYmxlIHdp ZHRoPScxMDAlJyBzdHls OB0vYd6zEHYuCLPk nHqjyJVdRaGjw2bjSXVn BQecQL4egWoxO1TxzCZ1 ZTTib5j2Zr05U13jP5Tk dXA+SVAogTY5jBV8 eG7sNtLvPbW2BZsdW021 CqVguFJgNgbaz8ius7ca oBa1UvD8GVJeioHctLcw EYE5t3DqPm11R03o IHdpZHRoPSIxNSUiIHZh pKmktc5cpM1xXj2+PGNv fUA1oZT4xP7dFeJzYqM1 UUmlJ201FzXaeLMj Wdulu0lvi9wlkTl5GwFt DAOrkyAkvUypAHW4w1Qy Yu20H4VvqSnlz8LjYvf7 yu90uSZns5U4eBU5 D9UwZYNupkrwdFJgrRdj HW7uWOHmtvbjEOTxxJ5a VHCrM4a4ZhEuCxV1YPsd K7ActuH6KXMmiSOg MCLwmSPAmD4kkooxo8ey bmquMjQhVFQwVCs9HVx7 SWSckWrjPsOiQMK3YpI4 OVP3uRRwlB5czDij kvwlpR7iSdi+OQN8cBRn vOLOYE3fHcxqyQZ+PHRk ZXJ9fQnfRLklVNKvnB5t YECtB6r5LvTkXaC7 ONdfW3TlmfA9SMVavPZd QKRgrLSTeT3renurz2ir lifjNoBrAYLfTDo5GLk6 LWFsaWduOiBsZWZ0 DuR0MRR7yWZtqW7stKwh eduszT4uPpo+QmlydGgg FIH1ZRy1Q8WhWcx1OTKi pUshEO7ezYQhBOko Bz4uqEkxfHgjCH9iIIXh idxdy172PzLdd4gzPEHb wWKyCQhoYRU7Z85ss4L9 PHLmOBEsTXJ7fRV6 uO1ssYkzaeoukWDclVza soEmpFwvCRnqYDrtH081 XMWmvDrxMdMjMUv0M5Fi Nze5IKGbcIqrTZ4e eGWiGOguGc2pnCinrQoy JG6oXEOynsfnb349BbXg w9iiNFNeoHUbYBehNPW6 N35do7B7LTHlJJPv HFM6cDK0jD3jjApymagr bGVmdDsgdmVydGljYWwt HTomH376WKWclUunDpGh xBk4A4TkHzf4NNWk cElmTR0gvOOcBYukCb4r zHhloNcsAA4mCGJlbabe f706MmJez4ccBFRfwMDs WDerKNJ6E52ga0W5 DQYwFSQfVPH0dMD4jU6p bGlnbjogbGVmdDsgdmVy jFovOBjdEIbaK588PTMx cDsnPlBhdGllbnQg TZapYOm2J5RbXjiezHD+ AM78NDEdMB01aNIghYEj i5eipJk8QqSaSORtYVK8 zJvySQgku6XtUDJq A39rmTMxv3B5LKHncPcq cSGeCiSkbEL7uN7wBRoq eyadc6iakmcbKzuaz8oe kv66wX56W47mTNmi ZHRoPSIzMCUiIHZhbGln fk3mwT3sCg9+PGNvbCB3 fDU4sN3nASEzOxA7JYwu D118NmDqfZKaGoic z7ptp9fioDr3VrF2NTUu reXbzBmkIEK3w0IfMa41 N92yMRqmDEYkIRDbWCWh QAFocQtkin2vxS7j Ii8+CWQubHV8gGY8yL1b WrExGqJ9SUajZ614CdFc tCDaSfrzP24hQ1BetLA+ PZKtEtc3VTNcrPpx OS8maRMdJJtcNq7gZRH1 MfKxBdRdGXntE5TeWPGf yfyopmtgmVR0HNIfBCSa aE44Ih3mqCqqMRBj oTOGeX0hrycvc9wtoxuc JkJzCBFeKGe4SEm8ACLd wDptRgHoLKJ1VwT0XKZ9 pRQwzN1wzNfprbop oL1pK1OtYKZpheadYc25 mN5vUqOzDcF2KAqrHov+ B1UJGjwxFZ4KU1rQSNor SzwvdGQ+PHRkIHN0 iQznARrlYFFydJ2nVKYg T5s7MbOmBxM8SKgkL5Fv HRHqnisiRm56pV9xNfWm HoP0KBumG0ZysvX5 GZKwbCDrFOwqEHN8Q26c t0E2QVYfFKAqXYY8lZD8 sB8gzPnsvjyulVGncKuz dmVydGljYWwtYWxp S237CKGobFwbQmDtKzJ4 GvJ2DuP2I0GgSwt5IDDa aAszKY6hhXKjYXqzBl5f zOxvfWvnHY6zNKPl fxhkQLCpdA1wLIGcgDOs rNokNJ8gGTGjarpyf675 OkXyEBW7YNUyxWPxD8Yo bW7oCdCsMFUkJMOw A1RmcLUdPAbhW493AGzh VlR6RPNublCsG8PtVKOb kQgcOlY0y4N7Xd51TITW ZWFyczwvdGQ+PHRk NHW0uEqxGFjgBLItkI4n DPNuV7h0GiAwBuN6OPnt L5CuZRLdlortLq72lI0d LoQzRiF0GCzuH4Pt wuA1OOCfsOBgTTqfLPH1 I57eb4N0VZGiNERyVJP1 gNK4lG5ycWqrbdtspSKk dDsgdmVydGljYWwt NWszJ502CLFykZspVx3L VLS4P8LdWve4XCQxpSbw OI9jjAGfEAgbTl1feLfz wCllPP2fREBcbjje EBKsdQ2nCMCdyAJazMqb QI2cKGIsuwgte215LaAc ZEK3HPYgfFUmM6LcuO3z PgOeYXBuIZKgC9Ig wAHjEMclM080SYebKsZ4 YJOvhxAsU5EuOPUvlGua UfC7z0R1Jt9RDHfunDM+ SW91pj18X8VpEuke Udb0XXHnWSC2dRX8dP9s SNHxSUlef3X5pXE3J0Hv dnTdjb6kc9wpODWeASev B42meYRbi2P0XNPt yYU7DHYnoRdeNiVvcK95 Oyc+SPBxiBitv9ExIkcs g5hol8jaaQe7RgEhVYLo ueWebWbyFPA2h6Ia Um49B94dMHutOLQnHAKe VXNeSHMmnAiwob1fyO7b Ii8+MEMerAT4gOQ5jM5a WpTzFcW5TEenD164 KlQtxYKfPkzcb7unb0rv nMh3VdIuAZXardCjrHsm YAC3p5QlSa92Z1SldYtw u4JnVau4pa73oVIm n0Z0wPW2V9WwTLAwdzkn vUYqtTmnKZ9uGRDwnwtz DUCpaG5xTTSaL4f3BzAs DsY6CYyfO5ZlxbW2 QZRncVEoWDTtlVNUpK0u hhkbr8rnkwqtYxPlFWOc KCk0KIv8PLJoaAvgOsVr CBT3AkZ2VUM6vDRy iP5soNwiuimvmW9hFnu+ MAs7n2dzyGRtVO2xhHR9 EN88FI46nMFvt4K6gWG5 C8TvYSGicyovnpcf dNY0JLGvBWFtkL69Sy8d mSkgVv1mGCCbEZE1PPCd gDAeX9YqiQ2iEjAnLNKu VQKyU0ZnaQYxWIte L808FHcvEdH4XMNwcrLa S2JqOBTxzAaxYkK7g8S6 Kq9FJA57EJ54JQ20xWQx f8U4yIM5E8GwQEUa hqstkyfvfLU1KEVhMEQm qR26Go8fyItbGe3iKOEm VWO3FQYflGZjW1KrjV8j FsCgHPPtZVGaE6Ka yJIwOIpvG523RLfbQsS5 JPKbkdAmH5EkZBIgkSzc YbQ4m1W7Xc4PUk22HU09 YS63wVMgv6I0nUP0 J1QgDLZirkvglesigMH6 YGOePDFotA81Wi4ndAjm Dp9uYQCfREU2BEJwgQCi V6EqsY6mYvYoJSQz OVLfV1UjxKWbLKagX174 IFmjWvN8NAWwaxKdE7Tm ZBJeoFhwKpQ7h8O4Ek1D EXrlkok8Q6WuXbdk dHI+IY25CEPiZL33nALw iTKfn5squMi0MjEvKBJf CKX9fWqaPFggt0TfTSPr B02aqKZuh4A8RUYv bGx (more content not included)... [facility] Coding Summary HTMLBase 64 WphmwbtqZUn9sKx+PGhl YWQ+DB5WXQWcZ65uyEWt dF9tV5UIHZqRJtblUXAF FKrVLwMwmkYbWW7tlNHt ZXJu IC8+KR6xCPUjOwezwLYu d1S1uQV8Z11krk7zANes aVH8RCHaPcAxrahtz1nz zJh5JEbhRqsiUwTz GQLvvL31HSX0cG74Lj13 fBFztOBbv3gxjZz4DsKt FZDlNBC0iMexURcft9Ei WGDpA11bvNPdm9N5 IGNvbGxhcHNlOyBlbXB0 rB3jVSrebhkpj0ssmdeh Lcb7ab95vWUmz4I7kPA8 V1NapoJ0DEIemGSy ZqoglWPThR1pyaabs2oi azrgFuEuHSIsNDk9SSx7 SWFjqDwqChDbBN43TZE8 BURpgpMyK0JgMKSw dHlsFgY9r1C4Wa7SL7AM BijeG8TNIPYMEUhdoCJ+ JG37lr70K0VhWolqAga5 YRLaGKR4gGD0kR4p ABLtVFxwj5N5eGG1Z6Mw ncPufm3zm0grODKkDVdn M37esFJnm3A5KDNucTM8 VXNkuCqiRgLqtF72 Oyc+KZVvxRqrt3LjRwtp w7lur7cvnQx6OjnfMBRx ktKgaNukMGQ3i4EpBg5i YLHsmBW4iXA8zW6t XcSyHsI9RJusX012EiBc ePCmWmhlM23xM9RbuDV+ QFNmXwt4XYQcwWnrDD9c A5EpWLMibufptAPx bZeoHP7jIQDfgucwRSLo pO0mZCEuM7b1TaOfWiT2 BRlnA1ImHQSzidldAo40 sD2kEiUvUmL0HEbv R8FhpoP1WDDgqFBpCYxr AIF4U75px6Y3WONkWUGc SUK0dBL7wK2uqYgxwukm bGVmdDsgdmVydGlj BJakNQczX330UUSyrAmj PkNvZGluZyBEYXRlOiAg MDYvMTIvMjAyNDwvdGQ+ ROMoFPF4fLdiPVBl eQTmNOjqPv8fbOayzCsn NM8hWCVncphcHMXyvL9j RARyfCRkfTxpNE6qNZOk suvum695BsWhVZS3 KUZytUTvW3XiwS5gCfPi VCTvICCuA5TvyNKbKYyo Z264QKooSyG5HRDsyyNa Z8WtMFFrzIoxEjZ0 k2X2Lp1Lz3CgwnfvE7Ax kKGrExToItfqYIq4R0Bb PjwvdHI+XM93EIWnNN58 FAk9JQL1lBjhFCpa UXLeQ3NciZ9gJpGeSOIm ZGRkOyc+PHRhYmxlIHdp ZHRoPScxMDAlJyBzdHls LH7pEg7xQKOtICTs hLbirXSlBxByy9tjXUFc BEeoNQ8enFcjL7BpyGU0 ASRgg0z4Om99R50iY6Ob dXA+IRToqAH3xIT9 dU1dAeTgHpQ2SLylA193 HhGmjDFmZmskz6jjv4ds aTe6BnT8BCKcqnEbiErf XPG8q7JrXl00C15a IHdpZHRoPSIxNSUiIHZh dAnmjc1tbV7fUh9+PGNv hPW2uVK8uY5yLuXuDsE5 VVbbE679UuOiiUZw Xqfcx2ipe1vktLa4UhJq YRAlfgFkcKvjFNB1e4Ff Tu75X8GrzHzqa0EeMav5 ex77mSQcc4O7mTQ3 D3LjRLJrajpchNKqoDzm OT2hKHXmahgmTAItmU3y LXRgH8o2KhSoHbQ9PVvi Z3GnevW0DTUtkYOr SZGwhEJPyO6udxexe9wc wwfgVrIxBNDxGOr5LIc5 IUOvqXybWaHwLKT5VlM4 UHS6kFVqsI4rdLco fdvndV6nNfy+HVS7uBFb wFOCQU0dVoeyvUJ+PHRk LLC5gSmiKGmqXOVrlU2v WLTiD2z7NfTaKeW3 WGleK0VigbY6RUMglUGi CRGoqUKAjW2qtuuiw6th pzadOnSzIGTaUOj4JKv6 LWFsaWduOiBsZWZ0 KcU3MBB9zRBxtW2vhXhg lidfiJ9gJgq+QmlydGgg FQW9FBu1Z0LhQsz2WGOv iYnrWA7goQUuDEhw Xk8hbCfpyCpuFB8gANEh iqlbz912SfPkn5yiWYCz tKInLOhfUFK3Q67kv7J5 HPBhTHVzQWO3hCE4 dI6glRfbsfdrdWQulFkk wfVplTitODclIEtmM302 YTUgqEnsHrHjQNl8B4Oc Ufp6FUWldVjbSS8m gBAoTNvsFk2knWysaCfk XS6dYNLhcwfhs604ObUa p3buQDFowREzKUvyCSX5 B81bv0I3FOLyHPQl PSI9sRD3wG6lgKnarvog bGVmdDsgdmVydGljYWwt UJvoM304MQJemUwaMzJi xJk3J8OeYya5WIDj tFxvDX2zlXUrUIoaTj4g sDdeiMzmCW9pZENbrslr h023WjIie6rqLQVnhVKb TDphRHO6T08mb0Z1 XIOhWZLvGYY0qBR1cI7l bGlnbjogbGVmdDsgdmVy bAhjMEjqAGikG319AOUh cDsnPlBhdGllbnQg BBdsWSi0S9WfBjghrQO+ WV88RXMyOX59mWPhdTFb r5gueOj5BfOfGYDlBII4 qMvtDQxkh5VlYESp L76kiDVek6U8JSWbnUyy qIVtTjCmeQJ8wB1hITyb rbxgr4gpefqeDppkt8bn fb66kA05M91pXHns ZHRoPSIzMCUiIHZhbGln tz5cyF2zOm8+PGNvbCB3 eIB8yI1zDUDxZjC1DXjv C246GuMaeGTcVlnl y3pou4ligKv9IjI2MHKc feHpjOvhTMX2k9XbXk84 Y29yQXgaRIUaIIFkNXZz ZXSmkQetfs1qvV1h Ii8+DELhbSZ8eXU8sA0l NlScBsP0UFwoI625BhTa cMPbKmjtO71cA9FobLZ+ OLCoVxu0ULDlaXev FL2ybFPwGAvnYk7kFMA3 VgXiFcStNZdlD8NlGTLt lwllcggvdTA8CZZjTKCh oE33Xg0uaQklOIDi rBDAsA4biwvgn0apizyu GrMzCEYtAVg8MDo1UNZu aXneUqNhUXR5NeZ2KAD3 bLBqkS7mbSzunudm yK2fM6UwAGJhuigyAk81 cW4nBnIrPzF2ALpnBgc+ W6INBupbCT8ZP3kARAjm SzwvdGQ+PHRkIHN0 aWesLXjrGRVpkV4iEPAa I4x9EgPcSoC8PUlvB2Ml FIEuupccDg29kA7oXrEn CeG0ZFjkS7TjuoY1 QTSohLBcJZmkALX5Z72t a4M5EEKqUXUcIOA0yDV1 hM2hzSfyvbfrwDBrmNhy dmVydGljYWwtYWxp O705KMVmlIwiUeIpHeJ1 LrW0DvM1V1KoWsx7ZGSv hDvwRQ5vcQJpURltRj7c rOjilDmdVN3vOTQu ehvfPQPcpS8iPONxzHMx aIcuZM4rXZJzxvqtw027 QoYrFCB4JDXhsRZqM5Qp eB8jDrVwBBFgYOEz Y2AxtZTnUVdjF966TQlv WoZ4ULFvvdFrD8LnFXFy eFhlCpN4k7N0Ow30YVKB ZWFyczwvdGQ+PHRk EXE7oJjfVEozKQVdtQ1e TVKaL4o1SnQtOiT4XYpu G9LkNYEhjbioEb19sL4a VjHxNxZ1NPhyZ6Kz btP1NOKtiQMlYBosAGJ2 U14yg7Z2CGDnUBFmOEG8 fRB8kN5ggZxuctgcnNJg dDsgdmVydGljYWwt UTmsK767NRCcoYziFe5S OZP0O7QpWee0OEUzgYhj UB6cbLLdABaiMk4kxTmy oEwxPR3nQSWwadbe IWHrxG7fSJKntQNvcYoj FO8aCGKtdtfpm224NnFm OEQ6BSBhgXDuW5ExzO1j RhHaBRNgJDKuZ0Sd rSOsINmrB193NUbpBiZ4 EBQjxkKmS4FtCFClzSie LpU0w5H5Fp0IYIkpuBS+ HT14oy20B1VfGqdq Ewz5UZYlEAT1uDH5hJ7i FTShELrvs5Q7fTQ2X3Jx ecHumx3ue1rmXWPhJOxz M55huGVgj8I4DIMp jWV6HEXmuEekRiYpiE83 Oyc+YPRsoHsfl7JlBqel d8sgw2zavGn0OyNeSUXu liHraWmkLPN5g4Ca St50C25hFXzeGOLcSTMp GOXoRWDiiTfcqv9wbP1p Ii8+DYHygFI7tCQ5tH0x EjYgVkL7TJxzI239 MtIsvTFsHrapn1zwe3jm jLa7XpGqOGSbgjSvsWat FSJ1w3EzQl71S3RxbJwh n5EaNgu7ns41kQLp g3R1iNZ7D4JuOKJqulvn tMUlwNcwLK3lKGFgjmoi ZYBbuV1bLHTeN9t7JoWl HkM3EQhqP7PfflE2 VLUxdKIrONLraUTOlG4g yhyyn1pehegkHgAhOBRj AFe7SPh6RRUolCrvTjRc RBM9CaT2FYR4zJAx iU3dtJpulgrmzB4mPrv+ MWt9u8oqbKZoLJ4etTZ8 LK31CQ04bGQao3K5wRC0 H1QhDWImfnvithkg sDB5AONcTIEhvB70Jq3w nOoiEh4vSVXdBOP7GICm tRAyM3TuhL4sXqQmQFEi MKQvF3NanFGxZEfu X481WEyzIwV0KAXrpfQs V0OqEDXbuMazBeJ4v4Q9 Ah6WZZ34PI97GG97mAEe k3W4dCD6U4ShAMPt dtapihpvaNU4VGJkNIOz nP37Wi4bmMymTk4uHPVf VVN8VPShoDUpD1CqnP9a NwAeNWVkUURxV0Xh uXYsQKbrU594RWglMnT6 HUNocnBzM1ApAQXmxTqt GjM7b1F5Sc8FWs91ZI08 ZS14sLXzq7I9qOK6 R3YiIEGwtmexzlugrMB4 GZGrLWWsdT19Su9ooJoo Ey3hZFJsHWN2IRKrlPRg V1HrsB0cPxDkWLHd DYQbB9RplEKdRStrD510 ZZwfPhD8GRVencHwR6Uu PNYjlJwgGjO8k0O0Yf6D UZkdxmb4Y5SwKxgc dHI+IV04WNBuFA37kQKw mSTqp2cqgYu3DfJzIZDe COT2rLbkFVlhs6DfLBEf M65ljWQpm9T1TDXi bGx (more content not included)... [facility] Wound Care Noteon 10-14-2023 Wound Care Note [phone] [id number] #[email or web address] [facility] Coding Summaryon 10-09-2023 Coding Summary HTMLBase 64 PxhuadccMPq9wKq+PGhl YWQ+WC8HRLHhI04biTNm hE3vO1CWAHpVWgpsUOHN UQrNHmSjabZrQN1jxSVl ZXJu IC8+KB6qXKYrBachpGPc j4Q3dBY7A18cyo2gXFzk dLT6IJWuOeKjtxvvq9di zGw1MRpvDswtPjHi KAIseQ59UZH8oO90Gz85 zDHnpBIrq0uhrYu7CpDy ODVqYBD0uVgySQnxp4Wf RUQzI79iuNRjy6Z6 IGNvbGxhcHNlOyBlbXB0 wD0xURaxpizuh1qzggtt Ioj4qj75yVErb7B0oJD6 Q8FcerR8FSFayZFw VdrwpFNWuE4tedyrh6rc tyrkYkGoNAUtVYz5LMt1 BTXdeQfiSoGtGW03INC3 ZQIhppFqR0WmWMWw oPqwSvM7f6Y0Pt0VI6AM QbgxJ6VQMIWOAEpclVY+ MZ42vf15O4XpCkotKrl3 JEWfECJ0iBK1iA3q WFWlVLnaq7D5bSH1W8Jb ujHdri4sd8gdXUJoTPgc Y78xyOPob1X5ZQJydZI7 CKPctLddXzNpqR07 Oyc+YYQqoMnym8XyNoxz k2zzm3bmoGm9BadvLKEf nfAnnQhmSVS2k6YzGo8x CQYltBJ1eFQ1dO7d EjKiJjE9VGxaT848FqXd bAMzNryaT63mH9GpnSW+ UPIkXbx6PEJplWapFJ3i Z3RnCHClzbpcmWZj pTkiUI4uQVKgzhajNXOy uV3vEZBcR8x4MuQkIjS2 GGwnD9VhSJXnczqzHu62 mZ1nRbIbEpA3GFkj H2QxoyF9KAAqbTGqIVtf FWB6V93bo1M9KDKkZGBu CAH0cBZ1cH7wlZvweugq bGVmdDsgdmVydGlj YPlsMNurC873BJOmiPot PkNvZGluZyBEYXRlOiAg MDYvMDUvMjAyNDwvdGQ+ PUWsXQO7ePypMAFk dFDpQUmdNx6xyHwzaNcz TE4cTVAatztaYLXieZ3d NMXrePIcfDjiVF5nMMYd ccyqi855PuEpFDT7 YMJucULkJ9DbzD7dZuKy BCDoWKDuN2GfqVOeDUnz E313TRssFcZ4QLRxooIf U0GdRBGvwGxhHtP0 r9M0Km3Aa4GjbizdZ9An yLOsAoYiCicrRVi8N2Db PjwvdHI+GX05EALiHI32 SXd2LCZ2rGxkFHzk HQKpT1VzmH6iCpSuCCLx ZGRkOyc+PHRhYmxlIHdp ZHRoPScxMDAlJyBzdHls BF3lNn1mCPAxHUGj qWcynDDgTnWep3vqJJMq PWomRH8idOfuJ2XqmUY3 BSWuy7j2Ps81Y89eS8Dv dXA+DYKmdEO7yUU6 eY1aQpYxHrK8XZjvZ320 FmVuuSVyFpjan8qcd6xd sAk3EuP2CKUvagVmzFkv BTF3t6MlMo61U66c IHdpZHRoPSIxNSUiIHZh vNocne1rkT1yZy9+PGNv gLP8xHD1yD6dCaRkZfS6 KWywW105HiUfvVSe Gycun8lkc2ciiYl5BdBg XWKkduGqhVhsJOS6t3Ww Pd06D5OofLeyn3KeIjd5 pg95dCGmr9Q1pUA6 B2UpKXPztdezhLQowMdx SI6tRPTpijqhNXFesY7u NOMhA2z6NeFbHqX6LXsc W2IxnrK4KJGstOVa AMJugNAEvM8yyjpdu5km khgkAsQmHLCeZFy3OYl0 XBJaoGezOkIcDOE4BkS2 NLV5kUJbvK4hfSwf srhkwA0qBio+ITO5jTBy dZBOEW1jPvrekPS+PHRk PIC5mZidTXjaKLLbiC9j DOKxD5m7HfLiTrH4 DSjlP0RoygE7YYXmzKAa DJCduQDOdH5sqysrm6sv uynjDcFoQCSgFLr3MDn8 LWFsaWduOiBsZWZ0 JvP4JHG4mPFvcL8oiBif kkzvqZ3dSkn+QmlydGgg MUU9QZh1I6KmBmf2WDNr zZumLV1yyYQuKNbt Sb7qcJvlpFwzFK4yNOAv detew047TsLid6grQQHk vMJjWNsuEVQ2S67nd9K8 MCYmSBFpDTI5sJP7 qY2yqUbghghylQIebKby ehEntXuaYGdhDObkP287 UMMktQzhGuYwEEg5B8Eg Ijz5LBCadGwpPJ8u oFNnIWvbJz5fqDkwbBka OV7nICVjhdpgp363RgRl x8udITBoeULaPNmuYQG3 U69ih2W7SCUfVMRu XON7tRB7lO3gsBqxwhub bGVmdDsgdmVydGljYWwt BGidH321JNTbxRwhWgFt aBm0T6PsPjn3VUYz eAaqKD1rvDSeTPcwKn4r nNmtvQfsYZ0uDGAzdghd y833ZhZtt1wxBCYmwRTq CWzsWLR7S86hd1J6 ZPOiXAWxPPG7xYD8zW3k bGlnbjogbGVmdDsgdmVy yJyrDGxpZGhgH619TESm cDsnPlBhdGllbnQg LJijIIu3L3EmZxiuyFJ+ NT90TCNzLQ42rBXaiHRl n5ovvEj5SlBeAARdZSD9 iAhzQUytu6FxQRVl E21tsUAbr1S8YVTbnVwt cEJzAnHqlXH6bG2aQCoa ucdek0zlxbegJycfh9id ot00nG68D89xVGds ZHRoPSIzMCUiIHZhbGln ct0nmO8gIp8+PGNvbCB3 iNC7bN5tDKUcJxI9QAwh T558LtQtkDYcYryi s9sef4jxsBn2AsT4JROe ibWhdHsmZFR0t9CpNm19 A58iVQseQSFbATMsKFRf WTVhwHunsu4mzN6a Ii8+BLMekPT4qCD2rD9v MrFeLoQ3SZhwH975LmYe mNGrHqxkG29yE8ZrpEG+ NUPjXcr3VSNohGhq MW3aqQJwZAylXl1mLDQ8 LvTlYqPiGBnbK2PiGHAm flaqbysjnID6CHFuMTEh wT56Me4zlEupMLOv jRNQcO0naisvy1ylzkzh KaOfXPSdGRq3YBe3ZNFq qCcrUdGmBZK7SzP7SRR6 gJUeoU8noAfmnyqw xQ9tB0HeSNIsmxznNu73 cT5tOjMlViO9ILytTdt+ Z8GXRgviRR4DZ5jRNKdn SzwvdGQ+PHRkIHN0 tAlaDLjdKBJbyH8jABRs R2u0WnAeGwQ7HCaeM9Hu SNShhillAr54dW8qCkAp IkW7GYqeW6MvseP0 MCMlaVMhVSmpNSZ5P10p c1N1PEAjTFIcQZE8jCE6 dV8uyZmbusbpjGFweXcu dmVydGljYWwtYWxp G692RNPbaYqmRkHhDaY2 GwO9DnB8P5YqQaf3IIAe dCvnTV0ciMDvGXnkHv2z hAolqDqtLN4jAMRo sqcbAAArxS0kRETypMDg oNanYC3jBSNkshuqb098 ZbMrGFB4AQXmpTLtI3Eu kH9nJbAgJYZgBCBv K7FhpGGrGObkB829KYpr BhL0OCMaluQdK7SuEILx pCnxPrV5a3I6Rt11NNKJ ZWFyczwvdGQ+PHRk FSZ3cBnfDRfyVWByzD1j NIZaT7d9PuCkSfJ3KHfz Y0XsXENeohrxGf06qA1e CfSxWqQ2LOzzQ4Rn qaY0HOHprWGrVRvtJSH1 J32wc9N3GMTxFKTrDDS9 vKD4sH5vdPnprvjgsSSs dDsgdmVydGljYWwt IPlzY393CCWlsKcbSj6T NMU3G3OaQtl6DZVkoWza VW6ukXEpVEfmCs5uzRkg dUdrTG7zBSRgsmlk DULfiJ2qKYZaiICunBem GW0rIBKoctekx239MlYi VLG5PEWhiPPvM2NvfC1z AkUvJADtUIPjA6Mn mISlTSazM825LAbcDuQ0 WWGzqkMnM8ZdHZTcjEgm BiW1m7Q5Ef5QNXgpoIN+ VE02gt30Q2YsAaud Wue8CRDpBGE5kDU9pH5q UVSxWPely7F4fQY3Q5Gp rgGzoh8vm2kmYEFpRUmw V63opWGll0E4LLSt iWK1AHWwqBsjYpRaoM37 Oyc+AZOjaUzje1CpOxlp l9mkt7vahEc0PqYfDXIu kiPclLbgHLC5z3Nm Sz10T09uCPjzOQSkCYNe RBZjXMKmeMekne9srR6c Ii8+ZUGhtVN6eCY1hS6k PqWiHtH1RSxbS061 JtIfxNHaLrdoh4uyo3cu hNu9RnTrEKZiuoKbtSda VUN0x7UlTn02Q0JhmGno r4NrPxo7sx17zKXs g7I6pGU1T0KuQZAeilci hAGpiMbdVO8zBEArghkt GMAasX2zCZVmN3o3AaWl BcU6AGhmW8DyosZ6 GGRkdFSoEVTczIMJeD2w xweyw8bbsepnZyRbVCXu QWc1GTy0RGYcwNcoLgBw XDP9JeH7QLW6bBHj yL5zcTmgtejvwK4qZmm+ DNk0f8moxHKvNK6pyXG1 IG82AY55sKHkr2B4dSW6 K8UzNZGprmxcbzwo tDQ7NPLkTMWjeK24Gc9h kCmhGm3bOIOpCJC8FHJc tCZvX5BnkH0bLkAcVBDy FNDgA4YmxEJuAXbx L723WWxwIlR3TTCdktWu M7WrBMRvkQbbRfG7n0D7 Vz3CXK06RK92UZ03uYXb r7L5lXC1O2IwBKJb tzjsxuztgUP1VLVmKYHz fE96Al5uaPjsQa7iRRAe YAC2YGAtqAEaN8RomC7z PrSaZVDfZTPeV2Hs rEBrRGejD999MWerRiO0 TNUsfzBfF1ZvCBSmkQew AbF2h9O1Vx1KDp87PL14 QF12lPKrn5I2nSN5 K5EtIQEirftbxnbpfUC2 HLNiYEZzeZ63Ll2poNfm Vd0cENXvQOC4NFPryMAf N3NcuP6vUsZjATDy BDMeJ7IrnTJaMIryY738 AAqpIdQ4HLKblmTdS8Kq NDMhtHdfScH2o8E7Mg5K AEnuyab1J5JzPuaf dHI+QK80XWRaDV23lMWn mQNda5oycJx4TkTpCGNl ACV9fPgaFZuug9QlOERs T92aoGUaa8F9KNJy bGx (more content not included)... [facility] Coding Summary HTMLBase 64 LtyakqmuQRi5sKk+PGhl YWQ+PT3PKGQtE63rpJDo eR6iE0XWCLxHNybmLBLO RJyJZaTnitFsIG3lvXLf ZXJu IC8+IU7hRRUwKglygSTb x3M4xTE3M55ukf1pOAnw aCJ5GPFkGvStswpai3hv fQy1EZsoYaljWeHz EPTddZ85QEV5bU27Gb30 qUWgwSHzj6genJa2WjMp THYwWJQ3vFjzFZwle4Tq SUMaO05ngWUyc7P9 IGNvbGxhcHNlOyBlbXB0 hR2kMQevhpkum2sqwvgp Idj3ba45cKZhe7S0bBC3 U6RzonE0NURhaAHq EehfdVSOaE8fhfzto3xo kfwkQyEjWXLiDVk1SAe4 WYZydUhtJzWyBD24NKF5 ZBFibcOmL8JzMPWg hYyrCvD1x9U8Ib3QH6ZV WsgkW6UAKFDKVVmxvBC+ JB12mf10K3VaDsasXwo5 ULClJER6cUX9lS9s FFAeOHiiq4O6gSR6U1Ts vjEcfv0ke8ztVJWcEPeq T36vuSBvi9K3ILJaqAH5 LALiuRgzBgNbeO34 Oyc+GFEwnAhqx1XkThyo q6yfa4calHk8EyweZCKn xqEwiFivLLN1h4ChOq8m FPBqzBI0jXU2qK6g SrRfVoJ5OHoxS107GiSt tRIdDcqxA60wJ2QkkRL+ VUDhMmz9KETirSekMY5q T1AiHENljjosiVKa uYclBW2qRDSkigagWESq yC1kIPNkC3a9FjRhDmK1 CGwfS4DyRFIrbcbwTm82 uU2oYsUiPmN3JNlj C1TewhR7JXAdlYNyFOip EPW8R49vi2Q5CMHzCCUf TNQ7wZQ1iE3zxSyvehmo bGVmdDsgdmVydGlj PDnhUHlmY149YTVyfIoq PkNvZGluZyBEYXRlOiAg MDYvMDUvMjAyNDwvdGQ+ SUQjQQA3mXwdAXYr eEAaTUhwSd8eaTaehYaz CS0iSWGbmpnwWQFdwC8z ZCRoaOQovMtnSF8ySCYd honlz842HbFgSBY8 UQDhyRDuD5CsyF6kQzNe FPPkZULxX5LltNVuJOyb B584CBkkPoA4PEKxcxFi G4BxOWYgiYslIrC8 h6K1Yn7Ng5EscfhwD9Ur vSYzFeYiQugxHRa2P2Lk PjwvdHI+VH06GAZlRV58 DVn4DGJ8hMqfAObv NJGeJ6MbqI3dGhYkGEWl ZGRkOyc+PHRhYmxlIHdp ZHRoPScxMDAlJyBzdHls OZ7xWi1zXYWpMSFy jPhnpGViQyMgo4xnXCGi AHirMI2lrTsjD0NiuHG4 NNDip5l7Pe22Q07yY9Wb dXA+ZYBzcRP7hYJ8 kD1kGzTxPlW2CTswA427 UqHmbOXbYuyrx6ecm5rn sZz1CgG2HYKpemLsuOos NVX4a8DqSv67N80e IHdpZHRoPSIxNSUiIHZh jOiski3fpO1wXu2+PGNv oQT6wYV2vM9pQcPgKhF7 GHhhM315QyQmqZPb Ijwfo9mzx6gkcPb0HrCw PACjlxEdwRauXOR1j0Kc Lm22K4IcjZwlf5ZuFcl6 qa58uXUbm5H3yAS8 A1RwBOBaumsxcRKslTnu JH2zXDXwjoypFAXqcB7f TFFoK6h4UzXdBmW3DHdc J6WneyZ9FJCkfQVv EGAfvYCOtF5jjdunh5rd nsecSoZmKYXvMSa4CRr5 IXOkdAnwFvNhINQ0WzJ3 FEC5qBKilP2miJrp yuijgS7ePye+OEQ7bLOn xVPGDK2sNwrdhHJ+PHRk QSO3aMarSCxqKYEjxP8p DFCiD4x5TuQiXeO9 IPgvG3UiuvS5MVWyvYCz UQAbmARDiR8xybbrn2rv nezsBiGpEUKxBRx6HTx2 LWFsaWduOiBsZWZ0 UtB9IBB2pUJgoA3mrKyp iqphrB8mIuv+QmlydGgg TEP4ZWr6Z0YkLie9TFTw oNhsVF0kxKNvEYra Kg1ddUdhqGmnHV9fVUTc pvbfn074TzQkw8ltIGUq tFCbQIjiSUZ5R52tp4B4 EUTvMRUpNOO6aRO7 dN3aeOtpdsxboIPglBub odQpcKzvXDukRXliY026 TZCnrBogYeTgJDx7C5Sl Jil7GVEamZqnKY8b rGKuAXspMw9ztNhlnTxn ES3fAOKbnlgsh932GrNz e4sqMZSjhJGjGLcrJII5 T75pm0M4SUWxFSLg RFJ5xLX9gZ4ckKzmnxkv bGVmdDsgdmVydGljYWwt UNynP577TTRyrZyxCiIn eDe8O9YsVbk8WVVm cEeoDI6vnUAzENhfBo0r cJhkdFarOL8oEXCvtfse y045CqVth5qeJNHboYLz BGfeGKN3X87cl1C9 BRXqNHAgXSW2yVR2tQ5f bGlnbjogbGVmdDsgdmVy xBpwJEjlJKygK080AWXi cDsnPlBhdGllbnQg REvvKUb6X2SzMkjvtEG+ IL54UFSvIS87eGFzgHCh s2ysbNd7QoDjKKNlIEA7 mYfpLHvzs7FgEPBg T07hcVUmb1T7SXHzbCth aOQuZqLweTE2iP8yMThg ocjoj6rtrvxlGjzrb5sh ys72yV19S93qOEsx ZHRoPSIzMCUiIHZhbGln cd5feB3uZn4+PGNvbCB3 qCO7pI6gAZHxQuA4BMhc G730XwLfgUCoOzpn c3pne2vqsSq3BxX0YHRb nhXytTppMOX7v1SvOe07 O20qAYmdLJJiAKPwJOIj FYTphKxtdh3yxR3b Ii8+GAQwyYG8gPI0aL7a TyQqOuL8ULddT594CmNn eMOqKmchC53lS5IcuKD+ UDAzWpx2DWJjgFtg XS2ciODoYPeuXt1yTEF4 EbCmArTqZVvlT2JtKRBh dlezjlspbIR6WJNtGLTu bI90Dc3dzGivWCOu kUBMzE6xobjad9xrbrpj UnQrNGIoUUv5XVg1PPMn zTrlBbKaXOE9KcF9FQA5 qXSvtP7hkXcdpsen kV3uD7BoNXAmwwjrYb12 uA0vNdHrYtM5EYifGqa+ G0QGCwmpRB2QX7dQVIoe SzwvdGQ+PHRkIHN0 oJzpBKqeYFXvkC8wVSJv A4k3FdAiTkR0GNrjX3Jy TRHfoabzXc74jM3rNdAe AzY1MPsgY3XtbrH5 WFYxqRQyTYovZYE0J96h d4G6WQOtKBYaAWR3mZG1 oS6xqBpvgfeajMJtvAry dmVydGljYWwtYWxp G768VRUxqGdmIoQfOcY3 WvB7FyJ7L2AaKmz2DLAp vInlMD5nrIMrYMllBf1c yMbybLboVW4bWLOj vsixWDCfyA2jOADvjJSh uOalMQ7gIFCepjien000 TjIrWOK9CMLnjKAiT2Ti nE7fIgPhIDJeBUMx Y1YmoTDoIQavM857QRwe WuU7JCJzmsXcR8SbRCJa aWuyJqT3g6K4Yk81JMYW ZWFyczwvdGQ+PHRk KGD3nInrCEnyDSGalG9w AKFfY8w8PfLoNvI5UPjm D7EyIDUdccevEl40rV1u KjNvXvW7ATubS3Rz lcE6BMTuaTQnHEsfQPW8 L12kq1K6ZYNlHWIsRCI0 aYH8iP4jbNrmyphvqTGl dDsgdmVydGljYWwt APhjA546UKMgnTfpKg0E GTZ9T8KuOdx8ZCFpnOeb PD2gsNTwHOczXo8mdVnj yMyqVC9yTSYgjbnc XKHwcL2hVDYphRArkJfb OX8gYDGpftmdk505DjQi OCK4ONUyfMUnG8RwnO9r JgHwLPBlZNQhJ3Vu iPDqJJxpT705DQxpGbD3 PRXrlyUhL4BaZQMunGws GfY2g7V4Bx9FXEcciBR+ EP24hs33T6AwMegx Dgu6HQViBNE2mXG1aN1e LEQpDFvwi6I2tRX6Y4Yk hpIwic8bl1lzFDPpCWca R81xpFToq5Z0YUCw rOF5QUFgmQvtHyAhiI28 Oyc+WPLyeEbcd0XiIsak c5jfz3qtrKk2SwHfLPBb yvZcrQvnYPB0b1Xv Ph93D31fWCujDRChVZVu PRRaZFAhfSertc2xiW1k Ii8+VZFwsJP5iAA7zI7j CvDrIsD2JAbuG578 XjAnkZTqQiuxg4osf3bc zKk3BnWiMJFlkwHzpSnn USN5w0WyLi16V8AihFqy u9VnYxx5hy27uCFf b3Q0iFC9M3HvSOKskdyy vPXcqLknEK7mSIXcdbfm YOVvlZ3zXIYmE8o9AjOn WpE6HQjmY5KtrsA2 SXMycSPjCGXszUHSmO1o nybuf1auytvgKhPlDHOq IPg2UIr5OXIliVsfUfQt IHZ8SmY5ULP5lKXl yU3dtFimksqxyU3lMbt+ KTc7f3benLVnSP4mbWI0 ME02IK95vQYto9D9iRS6 R5ZvJKTswtjglgak yNY7DQHkNJXnbK03Co5u sZngGe4qQRSdSBC6QKYc vBNbY2KnyT8eMzGeLEYi OUXqT4AteLGgFEdk N859NZakQqP2BZMnudLr N7YqSFDsaMcjNdU2o4Y8 Hf5UAO07UX97IO70aCAn b7A2cCF4O1ZdWBAt ekqhujtbbCS9AITeYWFv uX27Sa1vmLkkRi5lDINf IWL1GXJhnBPkU0HkjS6l CmFaQMXsLEMtV6At bAIuVErxL359GUhhDaU2 IURtcgWmU6TmMKXzjRjf IoB6x7Z7Di9VDz82MD65 HU30jHCsz5N5tVG0 V0SqAZQdybjmmrpdtIZ0 TVZbHYXgkJ17Fp3cfTtw Pa8gJSMhLSG0CZGmoFTu Z9TdwF1rUuAqMQPl VCTaH6SwkJYiJAlzV028 VMpdWaI7MPDxkdNtC8Yx SRKmmPmoDfR1q6E6Hg7E FOrmryp9P4PcVgdj dHI+LE84OQCyZZ72bURk cMGhb4hnfQf0GlRaUAPs JRQ0iQhtFOzzd4QaXUTo G36foNMai8A1CCOw bGx (more content not included)... Normal [facility] Wound Care Noteon 10-01-2023 Wound Care Note [id number] [id number] Normal [facility] Ambulatory Patient Summaryon 09-25-2023 Ambulatory Patient Summary [address] [place], [address] - Visit Summary For YRN RICARDO Age: 63 years Sex: MALE : 1960 Address: [address] [place], [address] Home: Work: -- Primary Care Provider: LESLY MELCHOR MD Race: White Ethnicity: Not or Language: Czech Health Plan: 1?[facility], 2?[employer], 3?[employer] Reason for Visit: Three month follow up for med refills Prescription Information: If you have been given a prescription for narcotics, seek immediate medical attention if you have any difficulty breathing or any sudden status changes such as confusion and sleepiness. If you or anyone you know is experiencing suicidal thoughts, mental health, alcohol and/or drug addiction problems; contact the [facility] 26/11 Crisis Hotline -text 4HHYT to [phone]. Follow-Up Information With: Address: When: KAREN ZAPATA, LESLY To [facility] [address] [place] [address]/[address] [place] [id number] In 3 months With: Address: When: KAREN ZAPATA, LESLY To [facility] [address] [place] [address] ST/[address] [place] [id number] In 3 months Future Appointments [facility] Appt. Date: 12/24/2023 2:15 PM Scheduled Provider: Lesly Melchor MD [address] [place] [address] [place], [address] Future Orders No future orders Additional Goals [...] 3 m2 Body Mass Index: 47.2 kg/m2 [place] Body Weight Calculated: 84.047 kg BSA Measured: [...] tab(s)(650 Milligram) (more content not included)... Normal [facility] Patient Handouton 09-25-2023 Patient Handout Orthopedics Osteoarthritis [...] walking or exercising. ? An inability to crochet beader items, twist your hand(s), or control the [...] aerobics, that increase your heart rate. ? [id number] activities. These help your joints move more [...] above the (more content not included)... Normal [facility] Coding Summaryon 09-20-2023 Coding Summary HTMLBase 64 NsdcrisnKQg6nTj+PGhl YWQ+TH6JVEVqD87kgFSq iX7aG1KTOOmZXrbmFEMV XNqJDzIpqnNcHV5coNWf ZXJu IC8+GN1uJUQjDomhxCUj b4B7dLV4S18rzs1fYOep fVU7PIFdSvWzlxkzc0vp wOx4RZauDnxaSxNd JHWkmQ43DNL9qQ91Uf31 mFIjsIMet9vhbEk4WeLk LQEsMOE5xPstLSjky3Ur NLKbI96pwPJht8T9 IGNvbGxhcHNlOyBlbXB0 nN7bRUqpioqqr5feupkb Apq1xx85wFVut7D1yZI3 Q5SvpgG1PNMtzRLe QrgidZSAdV1byxcgc1fh hbcpZkRbKAXfXYc3GHz8 TIGwqWodLzAqUF35QMT5 CQCupyTtN7QvKKHr aNljNoS3h3I7Vv5VL9WY IizfB6EZEVVGUAelvOS+ RO54kt07H2LlDftdYiy5 GAXeBTF9iJV2bC2w ISVtIGrgt9J5jMO4J2Nw wmZxhd8tu1puGKEeXEsy R01uxLBev6N9OGDgwDD5 AHUhsOgkAvUjgG69 Oyc+HINqoAnbm1HrVvjo a1wln8fkzWu3XslyRWSe umKzvMevIHX6z3LmCj6s RRWajBB8nJB2hX5v BuVsGpT5FDlqM327ZjOa dTRzWljqU83pH8NbvXX+ BPCbVuq0AUFhqOakUW5a F0FqAGEcznjidEWr zHdhAJ2uTIVdogmnASAs aK9cKHIsJ2p3JtRdShV7 PHyxG0IrSXGslasiSi96 rQ0fAkPoLyD3LLtw H7YwjvC8FMQqsZRfECya MBM9I85fd9V1ZRZtWQXu PWX5xUJ0oI9xlSollzoi bGVmdDsgdmVydGlj QCtlSDpwK467AGTikHbg PkNvZGluZyBEYXRlOiAg MDUvMTcvMjAyNDwvdGQ+ KAZwJGC7vVbdGXNx kNLjBHhdZp4eiHtobYzm YB6qTNBuavjhRCNqgC6k AONpzSAacOioFE8xRADf kbbkf521MeZfNXP0 XQEhgVEkV9CmmI8tNkFs MGFxGOWdF3EglNWeGUhh O722MVbbEwL5ASHymmQq V9DeZGZlhNaaDzY1 w3I2Rs4Qy0YoezjqI9Ps gGPmYvDzLetgITm5E3Vr PjwvdHI+ER16DICpNU08 EXb1SGT9fXngQLei IFYaX1KxzI1lCaRvWQBs ZGRkOyc+PHRhYmxlIHdp ZHRoPScxMDAlJyBzdHls DX9oPm1yKQEhUCYm bPzwxQRmTiZgn1zhUVWj SXxsZS2cmDrjS8HgrIB8 OYYbi6h4Bv90Q96xX8Jp dXA+KNFlkEC3lIX2 tM7uWmPnZdQ2VBknU721 PhLxzDUbHrhtf8qnt1nb uSb4RvU8ZLTpowPagXug YMA7o8FmQj43F35y IHdpZHRoPSIxNSUiIHZh hIcpyh2atO0xFy6+PGNv jGV5oXY1vK7lFfVgKiK2 AGahU922LtKyyDCx Tdysz1all6caoRm3BxFo GWMctyFiuJhbVUT8c2Qq He08N9VhtBrvo7TgMyd9 py40oFDye5S3hYR4 C8OfOYWhlzsrcZLcpHzh XR1eAPFieezyPAJqwO6r VOQeJ6r3QpKgXhV2TPui N1DjkpY6YVXwuQSy HWVwoOWNaA1alcwtc1if bmmoRsZkRKBiQEa5WOl1 LVSxdNqyBiFyEEL0BgK3 STC3yBDpdI4hbZow vlomiH9dIhs+LCZ0gKId pYHBNC4zJmmlfHW+PHRk AUU7mTajNOxfFKDjjC9k QXPoZ9b7LjIwGcA1 IScaO5WmyzX3PFYqmFIk FZCifDLJvZ8gpvdho9zf iisfUaWzTEMoFBu1FQj8 LWFsaWduOiBsZWZ0 TrS7ASN6fAEtpM3iuMqp lokfkT8mLrc+QmlydGgg YHC6GEm0U8VhWxl7VEMq yVsbSX4hwWHfEEny Qx9qhClkgApxQW4rSETr vziey324QwTxn2dmPSOk wRWpLTujGNT0T43rh8H9 TYTsQDOvVOC0pHT4 hA3yxFyukpkfzEWlmCxk nmYdgPbvWRyrQIzmO920 USRjcRrsTyUbRMb8M0Qn Qdk2RFLmtKljLR3g jSNvLUwgVf4mdBlvtGfc KU4gJJHdlrqyg286NbHm t7hnFMRztOUbTKvlNLK2 V08rs8Z6ZJNsLFKl ZTC9eWP6lJ9miYbowurn bGVmdDsgdmVydGljYWwt AAqmC436RIElkKytThNf qLw5U8PmRyi3SASj kBylAF9ctVQjFQbyXv5j sUanyJkoFW3tEIAjcwrx g729SeSex6dtZVDdtWGk BYyqOZM2T45bp9J4 DAZdVDVxCFV9uVQ8gT7z bGlnbjogbGVmdDsgdmVy sOqhUZlyYIwzA029FKWe cDsnPlBhdGllbnQg IXyfYSn9L8CaPidfjOU+ PU84VEUjRG74cQCasGCi z2nixBc0ByXdVAMoZTW1 bBmkTFfiw1HfRXIe X46bqKVgv1T0BPLmjLmb xHWgAhBpfDR7dL3wAPew eqrjb0qphefgWassb7jb re91oJ69J41vFJyi ZHRoPSIzMCUiIHZhbGln ic8kqB9eFb9+PGNvbCB3 fXU7yG0tLZOuAjM4JXap K903EsHvtJNeGnqv t4sec7hshVx5KbJ6MMKq saFpvGmvAUY3c3AmMm52 F46vCDhqOQBoRZLlGKMi GGIolFeham1tdP4q Ii8+FHXbpGD4vDP1qX3u BrLpDyD4UIbbA862BzXf yDQiKkgrT91uM6BsrOY+ UTGrGmq6RYUnbFoh NA2kpUNwGGveVv7xEIG9 LiWdNhDaJTxnT8PtONKr qvokrcsvlIX5SFIsHXEb pX84Fg3fdBhsPXFa gFYUaD5biclbq5pkbwcj NnNrXQWdCQi4WYd9ZWHj dJusZfKgSJS6HkY3FSG1 dBVrxJ7fkPiwegwn mT1iE6LqJGIkpzhhSp19 dG4pNeYoTlS4WLxwRpu+ I5QEDuloPJ0JT5wQQRat SzwvdGQ+PHRkIHN0 qLzmMIqaXTDdjI2uYXPy U9s3UbLiRhZ7YIlnH4Mm FPMbhpgzMs35sY5zSwGv AwG4WNfhD7TvxiR4 UZKgbXRpEEplAPV7V32k x5I0ROLnZJAgHVT0yUM2 pG7djTopcqymdZRunIcw dmVydGljYWwtYWxp P922NHXpyKjePtVnQrC7 VnL4HzY1D1OfTdm4COOa pMyrUK3pqTLrBEpbEu8j vHtaqSciOU8fKVUh nxetAXOawJ1xHXQjcLQs dEjgPT3tAWPilxliz451 MgWoXXM8YWAfuHPrC9Jn iU8jXhZvJNVkAVHv A9VseDWeOBgmL711XVxg LqI9IPNobuEgO3OwCJNf lZbaRnV9i7S5Mx37SLTN ZWFyczwvdGQ+PHRk VRU5jYfmTVneFYPhcG3b EDUuK3q6LmDgDqD4GPqx V7HjEWKkawprEp28nM6b XvSeBbL1VZdeW5Or igN1ODHsxEGiLWscRDD4 A43js2M3PIFdZTFrIIU3 wZA9hA1guSpuphzhvRFa dDsgdmVydGljYWwt VCncS351JHIroWvxNv9K WWZ1P6UyEiq8ZECzpXlc SL8nqRAcGWwzHs2ggNzf jIkeSH7kLODegngn DSPvqE6hNIYabVQpbKws JJ2xDXYfyypaq420AxVn SOZ7PCSjbVGhI5GcwT8i GcXuFDSjDZOiU1Eu fITlPZcgP427YFpmFgP3 JMWlpuRlU6AuGRNxhEif VnS1l0M9Po9PKIcsbCH+ OA12ju95M3RhIsqr Rsa4FHMgSWU6sRT4jG4c WQHnVMpfv6D6vCL3N1Of avHyng0da8lbAGDgKOsg Q91ivPGfx5A2THLd sKG0WKLohPvjNeWwsN63 Oyc+VKIisBnmz0BqJcye u3gjb3bczTn9GtHqIUJl mxXufXwqXGM9a7Uw Xm68J21nYDmuWAHnEDDi AQOhYAEffVruvf8tmM9z Ii8+BDNznEI3qOD3dA2x HlBrYbY5DStqA673 YpRukXSzXsrwf4rza8wi hVu5IqWaZFOonsHtvSsh PZA9b3NbNw82D9QglIqf i9QnMhu5uo46dELd j9M7gMI5B7ThBYWkopar hDQbzYewZA0dHWChovyl CRWgcV3wITYmG8b1OpKw DwH3MXkeJ8QlzwH2 POKbnIHaQOSdnAUScH3e zhbdc3dwhfahFsTvMUYn QAa8TRi5PTBoyXwlYvHe SSA4MrS8JUW9uQJy yO6vbFmyqcyewI8yTfl+ CAn4y7rbcCXlRK3uxZJ8 FV24ML00aSYwi5U3vZE6 J6TyXVIdefrdlsde zQT0ETQlGIIioV55Vq6d lEwfBw3bRKEiDKI1OOOh lAXdA9WzjP0mWiIlVAQv VMLhK5HdxGGlKMtn F926LVksDxL0IJNeysPf M7EwEUNhgMaeQbG2s8S4 Th1LJN73SN37KJ86fXDx m1G3pUW4Y7MeQMDr kmglpoeexBX8UHZiHDQe bH26Wt3atUvbZv8mLIFi JWS3CFZcjDSdA9JibH5b EvQyFEFfEPWkT4Co gYHdDKkrK064ZFnpQzM4 YLVywcYfP1OqQTMrzLtm RmE5v2A2Li7SVh78OQ53 PW71dILwn8G7wON3 U1TrJUNtvsjdlziivGK1 ATFlSFWizO24Hk4auAde Za2hQHHjRVY2EKPysQMx Y1MgrC6pMzZgPECm UTJvH4NlkXKwAFslX616 UDkxTfK4CVYlkiLjW6Bk ETHlmVwlSbY5f8Y9Gs4W XPjxvnz2M4WgRrfn dHI+XB54DHWpLL30jTPi gHRqs4pnsGf3YpAuITUg SQG6yDouFYxyp3EyMRQh D89wvFQxw3J0FLHh bGx (more content not included)... [facility] Coding Summary HTMLBase 64 XyogtnujPVt5gAl+PGhl YWQ+YH6NQXDuH10jfAAg yO3pU4TVRFdUJlftYDMW NHpHKbEropBoLY2edXDv ZXJu IC8+UG8fXOSdFaeogAMw g7F6vAE3L83jee1zUYhq zXG0EQIxCnJmvaedm1ih vAj6VIomLxrpWfBh CLXgrZ95QNW1qL74Ba32 aUWnvKZrf0iapFf5SqRz CAGuCZY6iJxkNNykz3Me WNKyN44llEXev3C9 IGNvbGxhcHNlOyBlbXB0 tH7uYCqpektvr8uztirk Min9zl76yGNmg8D8bQE6 H9LkozS8YELbiNXg HyynnAIBpY3cjuxge8ku iylsKxCfXYIsLHn8KRz9 BDNydDiuBnQbJO38IAS8 XOLbyvYvY0LmHSFt lEqhPpW4w2X3Yi9GR2XF VkxzA7WFRHNGSBuinLN+ ND93wf89L3VvCiiuZea5 JTOrIWI4zFM8qX5u XFBvJRxvd9N0cKC1A6Gn ygEpuc7fh1flFSFwPBbn R58ixDGok0B8QLCwzTE1 DIYicYmeMmQiyY65 Oyc+DVIiuGkna7VbXjps x7ruq3ptfZs3GqiwEXGi itQiuYeiQIH6l9WxEb6h WETwdTI0hKO5gL6u RjNkSsM7XHfcA629EmIk tGJrEbsaH52uC8XqiXC+ GPTuOtz0NLYfsPgoQL1g V3LoDCNyonslzTTy nPtqCD9dZZJfpfavNEHv qV8jLYTgZ9e7ZcLiDvX1 TVvcM2JzORHfvrhuCy44 xA7mUcBbHjH7TTky S3SsqwR9GFOlnQQvCWmf DGC0I71ud3F4XIXdSQNk NSI8uYE7zJ4yoWdnskeh bGVmdDsgdmVydGlj ESbqVAgvG744NXOfhIzm PkNvZGluZyBEYXRlOiAg MDUvMTcvMjAyNDwvdGQ+ ZIIgZYY7hTkiSGRi sJXeWEalPf6pxZpdxHal AX7mDMXwveyjMEQxkC6w ZUQllOCgdEuxQT5fFFHi mxsxd982IqFzJUS1 SXVynWKeQ5BmtF8nDpXj PPBkZFQnK8RhoVRdJIrj F887FMlcSzM4MDFdghAe J3YcLSYqnLteMbR8 d9O7Nm8Hj5IamtebM2Fr cGDxJgUiJmqhUXh6J7Xu PjwvdHI+BR15CJLoXQ94 COs3DOY4cUvjEWud BHUjJ0TlxF0lEsTnKCAs ZGRkOyc+PHRhYmxlIHdp ZHRoPScxMDAlJyBzdHls NU0pKz3rYLRsCWJc mQovbOBxKiZmf1riCOKg EAwmNL4zsEdrN7XflCE3 SLYwp0j7Wo06A52eH6Cf dXA+VNBmoWW2eAN6 uZ0rLyJwOkK4QCdkA558 BkBbeAGqZlbjp7jbq0jc gMx8SnZ7JFFhmpQlrZcj IMO8v1AxKz87P98y IHdpZHRoPSIxNSUiIHZh rNswpi1ejR6xJl2+PGNv mAK3vVJ0tQ6pFsVcGxZ4 NUybT457BkQsmIRe Ydglh9xyq5kjwHw1FwPy GNOzqaAvwApeHAD0a8Yw Sn45U4HraMgws6YvSvt0 ae91oPMhy0J1mIL4 Z1XlPSHfinlfxJDznTmc UB2bUKFyitjgQCRfeI9w EYGqJ5g2OaWeHgS5BZxt E2KfdrU0JIHmxGBa CQThxKXQwE8kmyplj7aq anfxMeYwMYNbJUm3BPv4 OTSwzGuyRgDoQUV2QtY5 FGN7pBIexA0dnArk xxjvlQ4lGrr+MEG0jFGl pIPZRL1mIjtwlDY+PHRk YYS4cQccRUjeODJuiL8s FGTjL6w3SbKbLxT8 TIcoN7WdgrY8PLOxyBSj AJJlxLHDpJ5pzkwwi3wa rknaRkHmZEMcRJs6TVr5 LWFsaWduOiBsZWZ0 OxY7EBQ3fHXhxJ1hiTir cmkorK2gByz+QmlydGgg HTG4OEk5A3PlLrx5QPNs fHjlDZ7owLEyFKjl Gv5dbGnzvBxaBH7yTMYp irkxo394DzMnh2nvQEJp wGHpMYvlBMI5G88ci5K9 POJmOPOiFZU1oDM6 vP8cmWtrndjorHXqaAag zxTsaGooPQvsZSqxW504 PKYdxDrpXvBaROc8W4St Eyj5BSMhcPepCJ4a sMIoAVnuAg2bhQktsFil DG4mUSNmsfhgx976FyTj y1fsKRAexZExDAxuEVS2 U89pj7S3XXHfVZUn WDI3sOL9iY6ncKdpxkxe bGVmdDsgdmVydGljYWwt CBzyO719ROZulUjfLsWa mYb6N9UyVwo5FDQm zJkeDG4spJBjEIaxZw6d nYtsfQofTB0kGEYosnin v082ZdDgl0ayXCYjrOMg NKfaVIR1E43ct4I1 RSIoVZYdUKE4iBO3iG1w bGlnbjogbGVmdDsgdmVy vQucSYgpJKaxT867ZKKp cDsnPlBhdGllbnQg VXquZSt7Y6WbTsldeDS+ AM70HJHoGE06ePVabNDx r9gebHn1KsHjRDHnSZO3 kHlvBZffb5EvUCEi C62jgACnz0I7MIEjdVfz yZIhXeUxrRZ6lH6mUPat asahc7fsmjwdMltvc1ki gf17uT54W50hKSza ZHRoPSIzMCUiIHZhbGln xd8pkO7mEy5+PGNvbCB3 aFT1kT9yGXWsIyR1YGbx A747UyZrcKSsIdyr c3rzj8pajQf6MlE6FGHd baBerYgjIAT4o9YiCq29 X70nYWfaKKQpWYDaYRXk BZKlgZaywq7noM0a Ii8+TJGruVR9zEB1dA6a JxKkQyU4OOdtQ616KgFv fLTuDnfhJ72cS6PlhJD+ TAYeExn9GJXwhNkd OP4qwBOsKJdcDp0tFNY7 XeDrRuTyDWwkD6TnDYOi qkpywikkrIZ3KXUsWPJh rV72Tz3kwLjkSFRq xYRJoP7fuzwvk5gmgeaa IuWmKZFcYQx9PJv5BFNg sNlaEjOxQNB2EfL8ONS8 iRInhL6lvHmewgvk lS8zG9TaFFYeaefzJs44 sF1yTdLeLjI3AWxfNlg+ Y8ALWfitAX2YQ9dTMKcp SzwvdGQ+PHRkIHN0 jHncESsbRWDpxC4dVOYr M1r5UvQzZuV8FWosV7Xw BEXwokobGs11uG2kFdMj ZgE8PYnnW0NtrpA8 GWEcmICgQDhsNDR0M06y v9C0GRIkWSLvBBY9hQW8 pL4dqMhbhmqdxSGdiKar dmVydGljYWwtYWxp Y411ONPnaJfkOySnRhM7 QlA6UzO7X1JsUoc0SXEj jAyeMP4sdBUoKAbyPp5i tAfkoLgzMH5bIEUi bimtWQPlaM6kOYBwaGSy gMowCZ0yATMqnacmq325 BoVqFQZ3VJAhuBYpF5Iz qM6rBfKnOABeNWNt Z7JolFWsRRxoL971MNcr DxX0GWFhktRyD1LfDLQn vKosNqW4e2F5Ws92CEUH ZWFyczwvdGQ+PHRk IJD4hFvyBBwfLZOrrB6m GZKkY4g9WeScVzQ3WXrl X5OdQZXiqbxpUi40zA2e TrTaSfH1DRabF7Ef eeL2YREwyCLeEUhyBOQ2 O39lp1W2MMQyIEScWDF1 oJQ6oP3xaQelixqmoYJa dDsgdmVydGljYWwt SHqqK954MNLjnKtrVw5B WGZ3G6JdIbz7VUVucCvn NT8ywXQhJFhfZa9eyLwj oCbiCK3vSCTmacfk EBNghD0dGEFsuEArbIzg YN8rDCYdmaufi486NzQa SVM9ULGbcEXtS0KpaS1x HlJaOSWsQTHzT6Nm bNCsLCefN806OXexBjN6 LLTteoHjG8PtYRAabXev HgR1h9H6Ux5WUJqyyWN+ LG03xj76J7RpTxbw Afg7OMLhMZK0xIC3uU2w ADBaBWmuu5K2hMP8C0Wh mdRadt9vj5lqKSPqRJgh B47bwPXxj4W6BNHp rOQ5MPNwoOrvBeOsqY09 Oyc+CQLtvQvmm2LcOxtz y3xhm4dnmVr4GpHfDDUn kvZdwObeUVC5w6Gh Dm35P53bTFagUGDkMNDa TAWtBVUkvOwwmb7ogI3v Ii8+FVJraIP6iKN6hA8t TqFmIbG6ONjlC768 UjGnwHZlEsvzd0mmw1gz lKh3MvYgAQXykyCfrAwe YWL3v1MoVt89E5JqlTpc e7CkAkj4by00yJNl d3K1vBF8H3LcLCZpmfvo yGXgzIikQR2gHWCufeaw EGPhbZ1pUIYxI3b0UsMr FdM6HFraU4XdnjV8 ZDIwfEPwEENzsENDcB0u dylmq4nmydjoLnFyOISz JNf1RVp9DWAfxYkzXwRq LBU9XhV7MIT9fJGh gY6pbRyxvyjhsS6lXtn+ VCk2y9stwNSzRK7jfGH9 IK81DD43lWCkp4U3xSS4 R3SlIGUfkgpgclol xWA8BBBrWLXsdA16Dr3d qRpwUj8mHTZkWNY8SXAx rRJdT0PekN8oSyYrZBGk QOQjA4PqcXRtRZap J500NKpeWfV4JGTywoWh Z1PnRBPdwIkiFbT1u2W2 Lt5LOH17MG38JJ55mWYe s9G3uEK5P3KiEYHk restzvydcVK9UJJfGDMp qR79Mh6vmDngEe4hVWEt LCO1IGOzuSBuN6HhbB6n PwYiPETrLIBfC3Lj zHSfOQyxK888GKtvQuZ4 MJXsacNqG9ZbJKGuvNul MiX9t1U8Cd6IHo93SQ52 MM77aEAil4F6iQK3 B4MsQHInezhwmnrqbTQ4 ISThTMTwgK30Ml3cbXax Mg2nZUCaJNM2DMMyjPLf P9ZjyK1lNdMhOYMe APZlY3VpnYIiSBprD049 TTloVvH1ZXXczcUmW6Xk CKBvxEmuUwA0m7J5Pl9H ADzjnei6E2NeHihv dHI+EU26CEVuUK54kGBr hJRim1eigGy0RiMiOIOr DHN6hWezLWrtv1VqGOKr M63nwNPqs4L2WEIe bGx (more content not included)... [facility] Coding Summary HTMLBase 64 WgabzrrpASf1pGn+PGhl YWQ+IC9EAJKzW33qvBFv iV7yB9IRLBoQFhmyEDKD JGzFJuRxixQuLQ2obVSu ZXJu IC8+GZ0rCVMnZgscpYYp l5I9eQC0C91pin2jINzr fTE6GLAzJdOlfwhuu9bq mFz9DHdmEtwgEbLz GDHesW16RRF4kI41Kj90 dPTvaMZuc5ltiRo9NzHu ADEyTPA9aDdjTJrcn6Qd LLViC67hrMXvl9U5 IGNvbGxhcHNlOyBlbXB0 wK9lWQfqybnaq8kzijmw Fje3in58aLRaj8O3xOV0 E7NgfaC8NNFyhMXq OicihNZNtU5cpsomi6ja sbckJeWcOZMsLNu8RXp0 SAVonUbgSaViCS74NAQ5 QAKkitWqA4VoPMAj eBplIxP9k7G4Ia2QP8VW AyqhC7JVWVPLIBhfnYZ+ OH47de60I2RxBtddYik6 DPUgLUT4mSR4mL1a GYOdYWexd7I9nKX9T7Wd giCwob2zq9tgVGKzYLgt P71hmRWro4R6ZUZlzGH6 EMWggZdbIfXdxA59 Oyc+KJWebLjqo5JxSwbj m8vwj8njnFy6IyzfMIZn usMxxMgjLFX7t9UoUy8b VDQkoCZ1pYF6aN2c AfZzHbR6JZpeM929XqYu jUIgJjbyJ72lY4JdfBZ+ XNWjLxk2GLDefSxbHJ2h J2XqZRBobmksfRLt fYwvQS4tOHGlfxopHXKz bY4uOYBbP2v9XzExYwD2 CWaxV7VuJFQhdjiyVo04 lW6qXdJwXtN0MGby D9XnrtR4OUWqqDLcEOwq TQR0H95ro1D4CNRmVVMg KHT6dTG2fG2uxDdbpzhm bGVmdDsgdmVydGlj RFonZBfpT304AFWxwGju PkNvZGluZyBEYXRlOiAg MDUvMTcvMjAyNDwvdGQ+ PFLyLCB2dHezEOId wMUdVGiaMr8grWcftScx II5ySQIuopysSZGpyF3r XBTwiPGrfWhpMO9nSLGk wmudw732KnKiHRO9 DPKteZBeJ8RowI8tCdFe MHMhFZQrQ0OedSDmHLos R460ZNztKyR4SKOfirLo P6GnTOXwaMgmVfZ0 l1J9Zk7Ts8RzbzzcZ1Ul pHOqAwRyGdggVYk0J4Ef PjwvdHI+PP25QYQxTA77 SCk2VKY0pKahSAuc RNSxG0UgcI4uZuFrXUNz ZGRkOyc+PHRhYmxlIHdp ZHRoPScxMDAlJyBzdHls MJ0rIy3xOFXtOBWq cXatlTHpTzLzs9cuDOXj PZeeOM4wxGbvU5FjuXU7 YTEav7z5Fm08K12nH9Kj dXA+IIRjtVI2pII0 jH2xNpDjUnD7GCxrQ013 WuIywCImFcmok9geb5yi oZr1MxN8YTLwhxIhsYjv BCA7g2IhYk41K41o IHdpZHRoPSIxNSUiIHZh fRdncf8oaE2jSz6+PGNv oVA0oFK2nJ3zGrKkDdO4 SMawB988DvYrfANq Eyhog2pel3uxfLt6IrNu ENZostAipYjhGWX7q0Fo Ey62I2FudJtxj1UnLld3 nt52pREhm2E0iWG9 B0HbFQJrjwfrhVIbkQaz VV7nJQFtaahxKAOmzG5h UBMeW7f3UnBjQfK2AOlo X1BhwzS0DBXkdNMv EDTdzCCNvE6mnjaij0fw ghrvSiGsTDIqJJk0KIy4 XZHegEerYqYmLEJ9NqZ6 GRN7cRXkgE2jpKsb jeywmX1nXec+IBJ6gWIx wSQDFI8mUesgaIJ+PHRk CRR7aLtaDKajKHRxoU2h VMHpD0z7YhKdRzT4 IHmkE3ImcoK5UATleSGw FYIbzMATlW3vjwddt0yd ltnrRfEgFIEjTHn4PKn1 LWFsaWduOiBsZWZ0 FpH7NDK0mOKnuH5ewSzu rccboM3sNfi+QmlydGgg ZRL3CWh6J1EsYyj4GMZp uMswYX3liDEmYWqt Ay9ikRrmqGmsYN7yEOZg jgxwv584CdOxt9zwOHJj zDNjOHpyNIN1M22mz3S7 HTShTDOwZQG5zUT2 lI3knFgtpkdqpEMsiXrx caSlrDmpTNucHErvQ224 OTQhcRtwYuJbHAu3O2Ii Cuw7NDDqwBckQA7k rIPiAFqvSa0maItzuIwc XM7dZLYiicjwt758WjIm c9djESCdhOHzZRzuFKY1 Y58hi6D7SWNaZHFm MPJ7eIK7tC4zzYscoqwv bGVmdDsgdmVydGljYWwt ADgeU868PHXriMrfGgIy gVc5W9AhNve5QIKc yBlcQD5qgGMqCJidXi3m hNsljVwwNS7uOSTuqpre k873BnWmw3vqLYYrtZCy YWwxFOI8I41jt7K8 IKRqKDVyZDE7gZO6gR6g bGlnbjogbGVmdDsgdmVy lLwfMSvyGZnvN698ZHLb cDsnPlBhdGllbnQg ZCdaLTh6H0YwHfxhsQB+ ZD30MWKxDY52lWYpjCLd i4ixvFk5PfMnJFStRCI7 aBbsQTtbd3UlPOHw U53mpTSbx3J7KGSskZaq tUPxQuSpgFK5cO6yDEct ragay7imkxkqQgwkp8dn pa50dR39P11gNXfs ZHRoPSIzMCUiIHZhbGln cv9njO7mQo3+PGNvbCB3 yPA4uO1wOQLwLuA0ROlu N197MiSseZZgCrmb i5voa2tnxDn1JgQ4OOKz unFnuLydRBF9z3BgSt25 E61xYPpgZTKkRTIcJXQs IINueMegap4hpW1t Ii8+HPHakML1hWD2bV7r RdVtUuB4HCdbJ611MwQf dHHaLivhF36oZ5QedWW+ VFSpPzd9TKPfnZsb MX3asPVqIAucEo0nTPX6 KtMoGxFaWUgjZ0YsKFMx dnjqhdeeyHS8QMNyUXEw mL77Un6dbHyyYZQp fXHVtS8evjiez2bpulfd ZjFcGOLyCVd7FOp3ESZb lVfuTbAwIOE0YrY1YUO0 iLEjzM7xtTvzyzlc uX6kC8ZtCIElwszjJv32 bB6oOpMiMwT5XDgoAjt+ X2DTRdkiOO9RH9oQMXfz SzwvdGQ+PHRkIHN0 fPmuPMmnGNRhiM7fWVYi X2b0XlBlQxC1DCqbY4Bu RMQrvefrTa79bM9zLpNn ZtR2JVsnG5EctrC1 KEOtpOScXUfmLDC1G82v a8H9HYQmEZVcJOI5xEZ6 xA3vaKcnnakepGRbhHqo dmVydGljYWwtYWxp I287YGEbkNnxKiRjNqT1 WgK1NsN8N0SjXnu3WOMx kUzoBZ7bnJGiTZlmBv5o yEplmKlkGO1vXXQi xzmbCEKahU8jWBPpeFRa wSetRX3tGALnhsqji937 LzRwYZY7QZPwjUSsP5Xo lS5tVvLkNPWtOLRl P4MuyPWaKSfmM264EAiu LsY3EYWanhWwE9DjHTPc iBhfHmC0o2E1Yi85ECWM ZWFyczwvdGQ+PHRk WRR7wYddXGsbZYMxcY8d DKBvL3p1WzXuKhW4MCtu L8DtUOZxiatvVp57lY2a XiJhHrC2XWnwD2Iy nkE3CIAyrXSpBYxhVEV0 B13hv6O8HURnGJAjGSJ6 cME0eL4stCbctwnfoRUs dDsgdmVydGljYWwt IHscC480TYGuqNwwJh5M TDT4D7OhYpq4TGUspXuu NA3gsLPrSIqxCt3uwDie bAyqNN2vNRLdiyms EESjjX3tVCGooVUgtSqw ZN8nJXEesyvln333WwDi DOK9JVTbwHWmH7VcnK7e SgSqFLEePCHfX8Mm xPUlQJsaH921YFfpIkO9 BDHyjvBfK8BlLINjnRln IyS7j2F0Bt6GJKrbhIH+ QE84ld25T2IyRdor Qmj8SLYnSQO0vMQ2gY5h ATDnBMdjg6W1yCH9V9Fa inTdfm3zc2ixYOGlZDvx O78kwWOan0R3XNIx zTE4LFMaoWlhNuUtzW68 Oyc+BTIixOsxd3XhAocf o2tgr6yibXn8PaRsMCMr awAzqAvuWNQ9h7Ag Qj31P13hXMklUCVnJETu AAKeXFGmmYrzys7nwP3h Ii8+FTZkbQC4dYQ5tW4u SeUdJaV5LKedN150 RdDsbKQsTjjwl2rvh9mp kQm2YoBhYUPjotIkgDro IJI8y1MkRn90S3PnrVlr m9TlZnj8jn61vSLi f0Y9iUH3T3GbTYMvcgni yUJygEeqWU9pXHSsdclz RLRlbG4mRYAcH8e6CdJk TgZ3IWjnZ9XajrR1 NGBwmZQxWHRmwMLTyA8w mbqad0lnznzsRcYyYHIi QOd1KVl8LALbpIzkLvGm IVX4HaU2BFC4dOVh dD0aiSdgudfbsU3hXnk+ DGc7i1tbtUDzSJ4xsUH5 CR40DG15gRAae8A0yQY7 K5BfSAHranroflza wGK2CPSzWHFqyY13Qb0a aFfjQa9lFSGjXYN9VLSn mZPoO3XmmO2nTuZiHVYv EGYbY4HveDOsKTxe N266PNkaXeJ0QXNkalFz L6NxKIWwqLcuOjU5o7E4 Px0JZC73NZ70DI98fNGh s6R9zTJ1T1NrEMNy qfnymffuaDU8TYWlZAZu hT66Yw6jnMxzSd9cONLw IIR6ASNwsWKuT1NrqG7n JpKrWNAkGPDiS8Gl wBZsRWctQ314ZIsaJdY8 EHNuetWsZ5LxJAIqfAaf LxS0u8U1Xr4WAf76AI23 DA07yJAkj2I1lAX5 X8GzOWEjvfmiufxlmVM5 WYCmPRNtpY78He6gaDcb Xq1cHYUvNXI2JKBcaMHk J0RjqN2hReZeCZMg UOSvI1QveXBjEHftU049 BEnqQyV7YQGgsaJnP9Re NSXozIvnUpW3k2U2Ui9V XDwfrjl6T9PeQdor dHI+JT19HORfEY49eUNe cSYsf8iorQc2FuYuGEGa IMH3yDatYDzeb2QlZBKd A37diFGlq3B2EBIw bGx (more content not included)... [facility] Wound Care Noteon 09-16-2023 Wound Care Note [id number][facility] Outside Records [id number] [facility] [id number] [facility] [id number] [facility] 09-09-2023 Wound Care Note [id number]#[facility] 09-07-2023 Coding Summary HTMLBase 64 KbftrtdxZHq5zUh+PGhl YWQ+PQ3VSZVkV65zaAAf wZ1uG2ZLEGxBZfnkKSEF OWyMIsMyzdCaEV1xpIIx ZXJu IC8+DA7fGJQhGijzoRHz v9I2yPB2B39vvx3bLLst zFZ0WJReBuSdvlgfg1sq kOi3MIjoJyyhYvSq EBJzxL40WXQ8tD22Lp48 aKMcvUCom7eaoBp0OpAw ZMWvODP6xBplERgus5Nd UJDhJ89ktJRge5Z5 IGNvbGxhcHNlOyBlbXB0 aC2kRLyhcjgjm2obmesi Bbh4cn66xYGkk2U4wEJ4 N3LnhoY7MONhrFCw IrtjiVTCuK0btiwxk2ec uvplYkYrOBLfMIv9FCe4 EHHfeJobHqRlHI45GFU9 FBOtgrCeL6ByHCZz qEgiYjF2c0B1Hg4LD0PH MugfU1EXJMDMAYeixFO+ IZ15dm64W0HvCyywNct6 UCNdVWU2jAN1fX8b IJMzOUvgv9W1oIN5O5Kj bpHwha0cz1gqOUEhRXgh V75zlPNzq3E6PZHdnAQ5 JISafDypTmCfpX00 Oyc+HIJruQfnl1QeRzxb a3ukb1ochHd8YqxiFMLb frHxjYhgVNU0h4PzLq8r HYPykJU3mOT4qM6t TcWdXjH4MBptS338YyOa rSDvBvssP72dW6AelFG+ DICnVjt7MBEcfHkeRA6m G0RhEMLeaghrgCBv lIqpYT9gQLTlfcfdYNLo bE5tLNMmG6j8JoPrCsG5 YYehC6JpGJAyhiyrAb27 dN1vKaUdBdQ3OXkf B6UexxD5HGWiwPPiKOmu JEO8P67mk6O7ZNRnRFNw XST8yZW0kC9qcMefimro bGVmdDsgdmVydGlj DMqtUMbyK451YLLgsNby PkNvZGluZyBEYXRlOiAg MDUvMDQvMjAyNDwvdGQ+ QLEtJDJ4bZtzRQNm xTQnSEfmOf0akYloyWpp UF2sUGYtewgkVDWwkT2i AAZtpLSaoVmcND3zTBPy moupz719ZtUuBLY1 OOVekUWgI2MpnO5mYoUb XNTxOEKcY5TxdIPhSLqd W380UYroIxF9VFGzutQb U2CfTCFkbGtaRlI3 a6Y3On7Vg9RuvhccW8Ph wRDbKmNeGufcWYe7L9Ql PjwvdHI+DV60TLDfRY95 TDe3ETU8iNabBXid ISUgL0PtbP7nEkZoJWGu ZGRkOyc+PHRhYmxlIHdp ZHRoPScxMDAlJyBzdHls IZ2jAl0iJSZgONFx iYklcNDjUaItz8yvOCYm RXhgZP0bdSvzR8EhkUP3 ZIBev8r3By24N36iN4Wd dXA+MQLmrIZ0sYD2 rL8zKbSpOwA4QVjvM307 FrUoaCMwIivad3lbx5va tNh8JtT5CQTqakHloYoi OUT0f6UdAt92N90r IHdpZHRoPSIxNSUiIHZh jDixrs1rvY0fWr8+PGNv pVB5rZG1gF9wIsMqPpE9 QUkpF662OlYwjGEz Qhbcj6fmz6fzgFd5ApBf WMFcpfMhqGdiBRJ0n4Ar Tw42R7HumKtwr6ZmHji8 fr33tWTfa5E1zIL2 G5LePPIijhvpbUKbtFda JB5yIXZtqwccOYLbxT2h NFKkU6y3CwPlPzX7YVpq M9VpkaT4THKgnLRj MZUnhDOUeF4fbtmzf7zz hdijBcKkGJBgNTi5DNc6 NAZxyNnoBrHeIAX0QxN1 RAF7eHTggX0rdJye aahumX7pEen+HVH2iWLi nWCVWW8sRjujmWF+PHRk WUX4tVioBIspLCQhdI7e ITHaH4d4ZoUlFtO4 VDvfV7EqivP6IDQohIUv PHBrtMLOrV4pxdeou1dy zbctUvCuWRPzUTu2ABm0 LWFsaWduOiBsZWZ0 TgC8FQR9jKQagU7neFen mybnjO6gIqu+QmlydGgg GGZ0WKq8E4FaYhx1UAWv nBrvZE3vlWRdEUqh Xs0kwJxktOfnEH6fDLUj kzwsd092NhEsk0btOSUk uHWoVJosRBT5T66gf8Q8 NNUlIVYdFEY3oVL8 dP4alRbtrnggvOFusWhe rhThiJumJSooVZabS448 ZGPimZpvMjTcKDp3I3Ch Ref8WLUsuBwbTI0t rQMpVFlkSl8snMcruKsl VK7pUFFzfvabk406EvFq x8foYXAydBUmRYqyTQO2 F15si4R1XDUhUUXx AIP5iXW9wC5khLbmupsn bGVmdDsgdmVydGljYWwt XFwaB481BGEulLbdIwUm yAq2G7MaFjc6LYZe lRldEI1zyGFmMOgcAc2x mJateClpET9hPWHttkyx l297WyBya9lzFJPfgWMj AIenBKY4J08za1F8 LLHvYQXsSEF8iKG9uS5k bGlnbjogbGVmdDsgdmVy nKwwFRioXVnrL738IIFa cDsnPlBhdGllbnQg QIhtFCr0H4EqCtppbXU+ OK71OSGaXE36bJNkkDIt x6jsePa3HmZcJHVmWAB4 rQntLHavg2TfVXCj Y83hyORzt3G1SGEpgFrq wPMzOgAamTD5iK5oKGnd hhrtp5nenyhfJolmd3bv no87sL95H88mQZpw ZHRoPSIzMCUiIHZhbGln ew8izX6jVv5+PGNvbCB3 cIG9xP3cPOMtMnW4HRew R729EqDryXCiVgwk f6yuo0ffeCl4NjI2PXNm wyXrhBmwYLU3d6HaJt74 J15rPSakVZZgZMIoDKWh UDMzsOyvrf4veS3k Ii8+CARccYD0ySN3fX8s FjLnSjX3TAuvW789FbXw gKFrXrkiI97bU6YdmSV+ RWSgYit0AWUuhVbd ZS1plRJcGUnzJd5gXQJ6 CnCuLwIqFDfoP2RiCOFi arjmktvkmIK3NBJyMGOn eU04Sn4kcVipICPv gZTVbV1ewyotu4mxsmbi ArShQLWqYXr7GDi1XQVn nUifAeBfJFT1VqD4YPY6 eKFpmX9wbVxoousf oP6pE5MjBQGtsjzcNh82 kI1zEqImNoU4DTqnPqm+ J8HKAcpuRK5KV3qFEVhj SzwvdGQ+PHRkIHN0 uQavAZmlRXNvbY4fVOUi Z1s6KvEzOkX1DWmeR8Sa ZOZruhzcKr95gZ6uFxBd DkQ3SIcoX2TxxvV7 SLGlzXBqQCsdLYY7M64j f5N1UGQtSJDrXGP2vAE0 fB5ehRlvnjtkvRHhfSzj dmVydGljYWwtYWxp P585TCDdnMozTsInRhU5 SjC6UvQ4M4GzMxi3BPUt zFvzRJ4xcQGyUPavJm6s aBzpzHmpBL9cQIIb lvydPAQvgS6yISAhqGAj cHjaVS2xZRGsidqji174 LnSrFJN2UBZcxXAeV5Hc rO5sUzGhKCHcSPUk H2CffBUqXFofA514JBdc DlV6RLZnzkOrQ3ZiNCSh gVesCoY7y8J8Rh88HSLW ZWFyczwvdGQ+PHRk GNZ7wIkmIKylNLGwoV9z PZTjB2t4JgScXjK6BDon Y9CpKSFxktekHv77aK5w QmTuRiZ8BXgyP4Fs igW4SEXitVCwWUhhJJF1 M82gr0E6RDAhWNAqOUT6 jNB0dA9ruKlmsiyftZUb dDsgdmVydGljYWwt KDljK203WUMkgVhzEv6R ODQ3A3QfDpy7NHLfwSaq FH8aqEFsPOerNu0nlCzg wZljLL5fFUNityil UIArxO5zRZKdpVTotOxp WF9dEMTtyneyf155UqZl SBE3FPLdiCBeF4GryC2q WnEmRZQjFSWoB5Ds nLIwQGthG847ALcaAwB8 ASAtpqAvR7SeHJSaeFwv UkD3u3I1Xf7GJUsegLP+ DX04zr27J3GhOotk Ltc7ZPRaGOB7tMD2jD0k TVPgUJkfy9Q8uQD1I5Zv ppAqak1at0mhYUKaRHld D45yhCEsb3J6NCTg tKX6IHPwdYkbDsIewY54 Oyc+VGYjhDcqr8YoJhtl n5kgv5nceSa6QtHsDNMc rgJjbFteEOP0c1Oj Zr34M83rGOkiIOKgNAJd PNVdAAVorSgury8awL3w Ii8+MTSghWQ7sGR6rI7x JjJqUhW3VSsiW581 OiIbeYMoBaqgj2pii5wv cAj1XwCbINKecrVgnNqm XUB4g5XeWx79Y7ByzLou q9UwGcd3ix02kRAw z3O4hWG6G3TaCTTkqwds yQDmuEcvQW8cKZAtjymq ZDElnP9zQKAfV9m4IaZp TxC8IEdaS2GerkT1 TPHgwNFuKTRvzNQGvN8q jbarn1upobqyGqUtCQSc EQt2FJh5YEJllKndIkXa HKT1RpK4LPI8bCKl mF4suFtfwapvtR6sTun+ ECo2i7gwfDFxZI7qwUM8 EI36JP42mZCzj8E6zTD5 S0IeBAVybtgkcikq cHJ5ANSvPJNtqC17Xx0y hVgwTh6aMXXcRTC8FIXg jUPwT6YuxW7pIgBkEXBy DLLzA7RnnBSeOTvr Q779PDacNxJ1FVItcmSi N9UbIHIufQynIqU7h5L2 Qb9FCJ91UR26AB37aCQn d5N0zER4W8ElYDQq oclnwgrvbIG7PHBcULFi hG52Db6moDkwBa4sKBBa GXU4NOHmfMTyM0NzdF7x GdIxXELcHMGpD0Fj aLOyYSiuL715KXwqEvL1 RIMqwqOuX0XwVTKvzJme AxT1e0Q1Fy9EUz57ZE54 HV83yQIbs9V5lNO0 Y7YmKKBbejwyqxvbkJP3 GWSpJQTvzB93Vb7jhUzl Rz0yXQGaXKJ8VSQsmXBo L2ErsR4zXiMtLMLy BGLiZ9JfvZJcCLatE319 RKiqNgD3QAKwslIiN4Jn QWHqsNmzFnQ5o6D6Ra6U CSzwles0Y1FwYasf dHI+WI37FMCvHJ77nFKm dVYne6pgzEm4BeMlBRYd ZVC7vUjyVSvgt5OdVBDw D11noWDcp8X5OGGi bGx (more content not included)... [facility] Coding Summaryon 09-03-2023 Coding Summary HTMLBase 64 XbnmkuapDWn2qTa+PGhl YWQ+NA4AJICcG23npGRi tS1aA6AXHJgDAdwnBAKG FEuWXpAzjbMdNQ8qnTYj ZXJu IC8+TG4hSWJhJmahqALp s1M6mIO8F61hlc2pSHep bMJ4SPWrEwJlfesar8fj pWm5CKzvZejuPxVv NHWnqQ69LPC7kV73Dq33 nGGsjUKsa9ugnPb2XaNi XYYxSEV6oHgrKSeuj0Cc XKQrW31skBCxe2O8 IGNvbGxhcHNlOyBlbXB0 gL0mZArhmcjgb7eluhhr Ugz1hh19gLDrb9G8pZA3 H1ZavoR5GODwxEJr CafkkWXAhI2xaezdg7xb nwjpOcRlIKIhYVk1MNo2 LZOvjWrbYqUkCC15OMP3 EHTmzqTnQ9IlIQSp mUzpNnW7t2V4Su1TA7HD RvaiY0TAAXDCOIbizIJ+ PV22wf16X9AqYptvBal3 BGBgAFC2jLD7eH8u CYUbIUwor6U5nZG9D7Ro kbOboa5up4kyGSNzRNkr Z84hoQYay6P9SDOxmFG5 IFNnyAmnLzVvvP06 Oyc+XAUqcUbfj3UnCres y1jkk7jdvQf8YswkYPQl gvAfxUkyIFR0e0XgYp2p YSOzlKE9oJR7cU4q IiBtVrT8WJhzM670OtVf jWDtMggmB84kX4LjiDL+ FCXmNre4QWAxfZzaEU9c B5MrFODfhieouQHw uOcmEI9qYHQqrbdwZNUg uD6wMEIqF1t9XmYxHrE3 OMvyS2WgLDEqgwsmRn75 yD8xBvUuZrE6DOkl R4NbojA8CXNbkYGhZPde VXV4A64oe1J2MGVzMDCm TGI4lJA8bO8scFhvfvmn bGVmdDsgdmVydGlj NZqyYBklJ627BPHmsMab PkNvZGluZyBEYXRlOiAg MDQvMzAvMjAyNDwvdGQ+ HAJxBVT1hExxWUZz oGTfXCevSu0hzAlfhXpc FV4xMLSxnlepWSEnwE1x UEXsoGXjiPvlHL7vAZHs fqryp257IkPoRJX4 HJMopNGlV4NrgT7cCxBz GSNgJLUfM5UtnNZjBIal F614PIdkJlC2HGHoetAe A5WqOUVrbMlkUvF7 q1C0Eb7Qx1OafnkrV3Lk cZYtQrKnXivfWNn9H1Hn PjwvdHI+WQ56CGMnMC49 HBw5QXN3vNxbXMwz VNWuT4VyjX9eAdKqDQMd ZGRkOyc+PHRhYmxlIHdp ZHRoPScxMDAlJyBzdHls PV7pKh1oJQYfXVEe uMsuxYQtJuEec6njVBHz BEmvUS9ooWfsF3GtgHK2 ZVVao4i4Pv76Y62rS4Nr dXA+KTTebRL2iVN0 oS4hLiFpHgN9PFeuZ359 HyHzbYAzRiudn9dvh9tg fHz1HdD4PWAzapXhjDqo QBD7o4UrDi81L09n IHdpZHRoPSIxNSUiIHZh xYsnvd0qyO0nEy6+PGNv sII4wUV2rQ4rBeGrIrX4 GWtvG003NwCdfDFk Awrhy3wcs1mxePi5UeHf ZBKbtrXqjFcbLTO9p1Gb Cc03H4UgnXphs4KgWos9 dr12bVHab1P7kEP9 V4UgMLFeyekuiIXoaDbl UU2sWNOyhxzlVKPzlD8k RSCkN1m0HwLvMkU2UOnl O3TbkzP7BUPchNCn IZGjaQRJtA7alveat8rt vgwlUzCaACApPKc8XZq9 SNKocJctNzVwEHU3JrN4 ZPW1vQAimY3hyTlb lnlmzA4kTte+YZA9pLMb xESJUZ8lCyefgHA+PHRk QSM0wBisLXzxXCYbwR4h URHbU0f7LaBiVkI9 DZxwE1WwstW9WSWcqEBa CBXxiJAGdA5rgxbct8xw fdglOfWeDGAkZHt7VYy2 LWFsaWduOiBsZWZ0 GsS7VHJ4mRJmyW0myBnb aguydZ9vRwt+QmlydGgg QKS3WLm3J2WcHpl6IQDx qUqhHN2gtOBhCYgs Az5ssLgzuZauBT6lCDSz wefkx197WeEnt9rtCGHm uKHnSYozSYY6K77ta5L4 WDPiRNKoQMT4eJW5 sJ5geYvprvnbaFEvsQrh vbVhtEohHMioDUohA436 XJSlqUgqKgBeSWr7Z6Js Qlc6TWYxjKnhGH1i nRYeQYqjBr1atLiuhPnh BQ0wHLUeqjdws106LmDj c6cjHKMtxZEiEGkdKPZ5 T42vw6W8HUYrZGJe LWM6bGO6bT3lvEnesnuh bGVmdDsgdmVydGljYWwt LXkxD855VUUivMptNyRp lQu9F2BeAqf2BOCf zZlvSE8tqSGxGNdbPc0d eKzgwYdeXN6qNXXhbpro f703NwAwj1uhNEEftOZn BWixZFU5O73dz0T5 WKZvLCLzFFQ5jGX6nM9c bGlnbjogbGVmdDsgdmVy rQybIKyxQAxoN281VMCh cDsnPlBhdGllbnQg KZsgRZu9D7PaApqzhGS+ AK49VEGkDK30tQGpbBKq a7gukAi7TnFeJFDbJSZ9 gQtlKHohv0GnKANv K65qqTJtt5X3MXTugYvc kHBhLpAniVW9eU6aTHrw cujfr1loanymSuswy5qe ww72zG36H21gWMrz ZHRoPSIzMCUiIHZhbGln ic0wsJ9wCx1+PGNvbCB3 aUD4nM5pXFJaQzE5ALon X892UdWpcBJuLamh g3tnl2xlmZj6YhQ2PKCo apZbdApvHIV4g3MqTt61 B78bJWkpZVCtPRJlUHSy GSPztPccgj7mvI3w Ii8+EAZfyYW6lDS0gZ1e HxEbLnM9FSwdP882XcXe xUMaEwmlU60vF3UosJH+ PNVqRvt6DOAgnMmr PQ5alQLuDPgmRa3cYJD6 NeMkPuStLDrlI5RaWUQp gnpgfwfarWT3WONoRHCq cD12Ae9uvLejPYCh jSDWgZ5qqhami1rooilc EyHmUUJeTMn8YWj0GAEa pFkwLeSjLSN8BoV1LXM0 uACunO7hyAtstzsc gR8lO8TfQTOclmetNu72 pR4zUhAhDbD9APbbZdc+ T9AOYvfhWF7KA6lLMHjo SzwvdGQ+PHRkIHN0 jCazQFolSLJbtW9iGMZb Z2j3YoFvUhQ2ISdaY0Uf UEIgfozjHl68hH0bPeBy KhP1DBlzS3EmjuZ0 FJEzqQOcYAjxKKE9O74u j2X1IQUyPGPtBHN1kXG9 uV8jrGqjxyhcsNYwuAeg dmVydGljYWwtYWxp Y398HPYecUfyWjTvUtA3 YsG9UxG6K5GzXel2MUYu fLicSR1ucPLwAZyzEq1h eDbunCvwWG4yTCBq jaxjJJLeoR0kUQYclAGi qVhrIA9iIMWxzosxl847 BcJmYCY3FYWqaFApA6Kx xA4yAtXpKSWnCICr K8EydYTwTMlkX934KAsj EgM0JYZdqtYkX3TaTQEf yGtjZcF2a0P4Aq86SHJD ZWFyczwvdGQ+PHRk TKR9sCooHZkhDXDgvC0m UDCkO0l8HgLzBgC7POou E7UhFNRtcmdvGt89pB0k WeMfMcB5JGieN9Hn cmZ1TNJoySSvPStfOTP9 J18cp8B8EJTjLPWxJHT5 wKG2nV6tnJcjtfxpeNRl dDsgdmVydGljYWwt PYekJ761CAUmwSrwVl4P LKH6I9UuWen2DQGwhUvc OX3xiRCzNUheUb5alUcs vKnkQS1zGCKlvcol KHXjdY4vWCSgrNTmfIsc YD7gNMKesajmo923PsKv ZVA3KCLijUGkD5SfzA4a JdUkOJAnQNAhG5Fn rMWpRUnuW014NIitGzB9 YVKvacWpI9WwCFUkeJbw EeO7l2Z0Sc8KQNbbhGP+ ZH95yq87O3TnTpyy Nzd6ROJgCJD8wRP7rP2r LLInSRidz9A2cBS9E7Gn gmDrfo9zx1crXWCgNKul U92clDOdv8A6ZFVk kZX9HJMjdYfbQqFtlX47 Oyc+NYGgrAfaj9ImScis w5gqu4mmuXm0IkPeJMWp seHzyMikBVR2u0Uc Fl40C22qERqxACTfEBQw KHCpKJTjiLhkfd8ymK2t Ii8+EDApfBK3uPJ9mA8w XrPpCfG6JEzsA021 VkSynPIiVqnpg6qcu3yj sXl2PqWrYWExioVknPqy HVY0z2LxYc95H7RddWry e2JtMks5ij91aGHq s7I5pFE2N4LnMMOvdhyc aZLdrFdjOW9nWCNgabpf NJCsoF6uAUEwM0y9FpUb TlJ5REpwU7JoeqH0 XBGxiRHaYVAkvMDMnF8k yzmnz7ichdhaSqMoNFNb SXi9LJo5OBDjeWygLhEe FPY2SvW2NAP9gQAo dK5laWxwvgnzjP2jZbu+ DEf2o1ehxDNjAF8inXP9 GS26QC23sPWzy0Y4fOG1 O3JqIVEroqufcnoo yKW7ZZJdDLJfuA90Pq9g sLofYr8nYWUsHTG4AKIo zYQpV8FuyI5gPoVwCLCj MGZwF5UqlZKhKLrn T587UCztKcY4IVIqfbRt I1LiYXNemLncTlP0p4H9 Ro2JIB72GD97AC39fKRs w2M8qVE2W5VoCIBl xzwnefnclXJ8IVCaKNTw qM70Pb7rbGfjXb1eINDz DEF0KPTbmSGzM7VgxH7m WnShINYqIIIuJ0Qd uQPtGLvlU441DOjdJjB7 CCZdwpAjP6RxTHPpqFga QgV6v9G8Kc2HGi75QP02 AS36bCBgp5X8nOX0 E5OtWXJvibevcdjxfCC6 WKJaSVVaxX78Kp6xnVtt Oo3jJUGcPZX7SMWriHJq E1UtwZ5jPkLjYPVu JMCuL9LpvBWxNGyiV195 CTqrEjI0MRZjreSlT0Bk SJQhjWprUyF8b1L3Pr8H DOsfwkz0E6IoFcjh dHI+XV24OZBrIH95vSOw aJZhe5bsgUz8RgZcINAg YWP4eQlsRRdcc4ArPUFh C65lySGbv1K9QPUq bGx (more content not included)... [facility] Wound Care Noteon 09-02-2023 Wound Care Note [id number]#1. 00[facility]IFF [facility] Coding Summaryon 08-30-2023 Coding Summary HTMLBase 64 FqzhsbjdXSd6mHl+PGhl YWQ+TW1WWROjP57isZAi eQ0hZ2MOKYtWQnisEHHT TAbDUaTfftRdVB7nxANj ZXJu IC8+IW8qAFGvLcrrtLWz l2V8eKW4Y20eks5eAXse aDQ3KCZrXxGqqfuba4hn hBw4VCfqOcofFpZi NMEpiD47TDB1wQ48Vl14 uZJjwFCwm7rcoFk5WvIw WJUyJXF1lVomDXswx8Qb DYZpD41xqRNjt3R3 IGNvbGxhcHNlOyBlbXB0 fC5gMXqgewsnv3hwesps Byk2cz93hWPlz5V4eRG3 Z8JtekM7MCYhjBPb BstcgDVKoV7tmqgfu1si lwsyEuOvFSKrEHr5QKr0 HWKzgGwsHkGgRF11VYZ5 ETOerhXaB0IbUFGg hZlhOvL0x5X6Hq6HW9OM ZmkcX5YSVXBSOHmxpXD+ IX01iz40U1YcXlelKwa7 MACjSKE7kDO9aS2v KRUeFPdox2M8sUL0S5Wt vqCiap4uk0msJNDePEha H18skPVnj8C5VCAdwXR6 GSFvbTpvJqQzbR70 Oyc+DNJltBqdg2MiGorm o6nep1bneEt1PhvrXKEh jsTdlXtxOPY9l5MuVm3g TCQxmOS1tAS3uK2a OwBtUpS4VCrfC619QfCo pFApPrhhL76iP5DtgPA+ WFTkCpj5JZVjsAulAH0t O2KhCDNnyoivqFMe qYugKI3nNVTuyxpqHLAp fC3aXBCpZ9s5WfJxCfV8 HWfnY3EkPVWldijdUu19 qL2oPnLiAzL7GTkh O3GvaaK2GVUmpIArOJep SHF8R11gt2K5JDHfJPDf EJJ2fUO1lU2hpHxvivof bGVmdDsgdmVydGlj WVilVLmnZ042HMCciGws PkNvZGluZyBEYXRlOiAg MDQvMjYvMjAyNDwvdGQ+ VEViYAL9pEtiSPId xKZrIKwaPh6zoJgviXbo XX0hVOUopalsOIMzcV1n UYZihSWvcOruIH2bNAPd mdmdh060EtVmXJC3 MGIdlHVbN1HhmA7hUrTz WHThEXCbN0JwxWUzJTxq M168YBzmRyN2GPAnfrEz Q0RvAPXhcBxfKiS9 t8O2Ra5Px8MnlnzzY0Kl hDAsImIpCwjeHJd0I0Wa PjwvdHI+CP82XDOuAE92 MXz3OXQ5cJorHLlj PROuT0DwtA4fJzHfWRZr ZGRkOyc+PHRhYmxlIHdp ZHRoPScxMDAlJyBzdHls GI6bKm7tNFCfTLSu wPiueTAgEvStv1hqULCc TZyfCP3mjLfjQ4CcxJZ6 CTPmo7k8Eh61O59cF4Ji dXA+EGAlqOO6qEP2 dQ7jKgEgTrS6OBzcU715 OfCynGFmWlsaa2ubb7lb fPv5PwG9WQRahfUnnEdf XQC7w5DwIg94L36c IHdpZHRoPSIxNSUiIHZh rRfukb9ncQ8fWw5+PGNv cKG9fOP4zX2gKrZrDpL9 HAtnY693LcDpuIKx Ewhlz9bha4bzzGw6PsMc TIYvplBrzHmuDKL8c3Hc Za83G5CiyQktb3HwVhg2 ch60sNPqv3E2mYM8 F4HtOJDuoecniWSviRzd KZ0mGYXqmpciKZLpdH0v BVIiF6n3DpMzKyS3CFmo Y4FswmQ7NTDdlHTi IRZxlZJUwC5dzzvsc4lp tedkVtWuCCGoYGk2IYh6 QPMlqByyEdMdVUZ3FeY3 NLW9tDXnsQ3kmZui dxgozL8gGsm+RES9vTOx cBVYSN3zFpwbpJR+PHRk ERZ4fXdmYRlbVFQpuW5p DJPpR3c5HfPiLsX1 OOmaN5ZmskQ5YQUleQJb XAQwiTTAnC6ifzeav5fe lcfnKoTuMZJrBKo9KMm8 LWFsaWduOiBsZWZ0 KmB0YWQ8oXYxrO5jzZhi reqdoW2zMkf+QmlydGgg QPC7PBa6C2SiAmz0NERt gYjuZZ0xiVBvNZdo Gg6weAohwOpbYJ0gZVCo zleag194PfXtr1yrMDIa sEHuYSowPQD2W61lg5Y6 VGZzKVOoQUH8aXW5 yK4ttHnsmtkpvVEeuYzy uhTwuDboACdhQWxzA768 TZBxnCmvNvAvBMr1C1Ce Caa7BCFstTbfYV1s wELjYQkeQm3vaNqasXpd YM8mBSWcifvgv199QjHq n4cpFDGkgSYeKYmyEKE8 Z01zk0H2FTAbWWAy TAM2uCV2jV0ynRlxbnvq bGVmdDsgdmVydGljYWwt HRydI842ZWAgaGuhWaQd cKe0D2MlMbr6JVLl jVauFD2irLScRWprNk0v jRrlpSntAR3aBHZjrfrp w511AzKbf2giKCSgiVLs KSkfLTQ4J85bt4Q0 HMSbUCBmEDI3dNK6yE5c bGlnbjogbGVmdDsgdmVy zZubDNlcYXjuQ058CALz cDsnPlBhdGllbnQg BUibFQf5N9TaFihswDX+ XS00NMVaRT11sCCqfMBa l4yzdOf2GfZyBYAaNRB4 xGgcQCbfx6SpFHNh Q94qfAIhc4Z8VKZjpKtu zZQoXxHoqWL0cX5qYBoe nnzwz7tmzidsIietf1af jr33tU21U39iWZtm ZHRoPSIzMCUiIHZhbGln gt9atB9rYh9+PGNvbCB3 fYO9vK0fBGLhQdM8AVdr J040UlFceOWjHwjg g9rzf3fxoUn4ZvX2XYAp feYztHdeFMD1l4AiKu11 J11pLPzpSCNhRHZfMMKs ACYklNvfxq3wlS2j Ii8+QPVfvQX9sVC6pG1p NrVjHqK9DLxnM846CoNf wTCdWwmxC76xZ2QvtTV+ QPMeLqd1UWRvbZuk ZT8mfMUgTSulVb1fLWY7 CaKoJgEoGJqeP6SxSSAo tpacddlmoCD1DIWdEODv gA69To4xvNeiIKEp hVXSuS3otgiib5jqdbih NdCyOSAqSMu8IKs7LQGm gYplOrEbUXG2UmV0WVZ4 vMKmbC3xcScmnveg uU5dW7PpSWJtyfesLc23 vR5wHrHcMcK5JVvaBxp+ Q3XDLvuoNL8XX8nXJLum SzwvdGQ+PHRkIHN0 eOvsZTcjGKYdpO5lHBQg Y2f6GbQuJjM0DXakT2Wy DYEodlvaKh08kP3dPiPg YdX9MBiqW7LftaF8 WOWeeRChIDrxEGD3H61v k3E3MKVzJNYmQZP0xFH1 jJ0ecCxcbqxniKWfiVng dmVydGljYWwtYWxp B522TVOedEwrIePrPwQ2 GiS7LzM6K7HoPxs5OMBb gRsjBV3foYYxIUufVz4x mPokyMiwPJ6bNZHv yxkwGMJzlX0sTAPyhIEp yFkiHA8zCJEpigytl135 OwYoYOF4QPRxwEOqM6Un pH8zEkGxMPVqXVRs M9NdoZYyMRfcF400QXyu GeX5BSOfifZeA9KuRFLt yQdwErW3u6L4Cv12CBFR ZWFyczwvdGQ+PHRk KYG5bXbnQZrfANXuiQ9i EYGwB1d6KjQnQtC2QSmn U5TaEGEahhzhOb53oE2m KbYlHpK0CUxoJ7Zk ciH3URXxwTMwYLwgXOV0 W44yg0T7DHLkDGUyNGQ6 aUW9mJ8ntZajiduoaFAq dDsgdmVydGljYWwt PAwgV428BAZgaKynRs2F ZHE4Z1QmPze6QVQuvNiv XG8dkYInALuyUx0leSud eGitLG2hXUJiptpr MTFrcJ3mIRQdzZJvjTsx YV6yQERrcouto178MtJq UNB5CAGgbIXaO6GfcI7e DmJkXNXaDSQlU2As kEDxQJsnL854GQjzSzN2 EJIuniQzS1AjBWBnhNad VeF3t0K1Qa6MTYvodVE+ BN01rz51S9ZsStvq Fms7AITrQLN2mPL3iO1s OBYqQVibc4E2uBW7F5Le xlVtno6ub0ioSZPqVUfo Q42urLFpo1D0HDFx vLU0UNQjrCncGxKyzJ04 Oyc+VFQkvJrph2GdGfrx f6hzu2pmgAv9PaLrKAMd txIwfSplQZI6w2Jv Pf68H38cZIoaQABkNUGj JPEcCLBuaAotle6cyX3z Ii8+RAFvfJD3sQE7wI4l IsZxMoF6VDysC693 OjZnmSPaSxgrc2leh0ew aDy0JlVbZHJhqwKiiTwk BFW7l6AfPp75V9PezJtl o2GrFhd0fc82lBPe f2T1gRP8X1CxSVRuwvso zPRfnWwdYL8kAQWnlior XNYnaB6uNONuD7n0SmEk IaS7LNclQ7QzegM0 YPZcaCFgUAUuhYUMfV0x zsqxe1dpmclmYaVbAEYn QJw8DXi9XYNhsJkiGqQw CII3JsT1BEF5mVBb yN9fnRdogmwfmH7uGtx+ YQz6n3edtOJrKL5rxWX4 IF05NI12iHMcq9C0aCE0 Z9HwEILzmshvmxgk eBA8UNHqQIWlpO42Lx8u zKbpXh7mYTOfAZL4VONc yZPoA8VsfT4kJpUyEPNc AVSrU8CgbIGfDSlw H838PWjoJkM6CCDswuRw B2YqGGKwoBmvXyW1o1R8 Tb2PVL92JS95NE94gDRm u4S7fVU7K6QzZLXg knvvljfcwED1SKZzWRBh eI92Ys8ccBjhNp9jGAUm CCD4FJUowCVnB2LtgX4h MxMlOJKmAUYuG8Nk jBInYFyjC351CNnyWeN8 FZCehrVpV7IaZDOboKyw AyC4u6V6Ra9MIw51UR25 EE91yJXgf6H6uXU5 G3DmTZVdfdlpnxzfqGO2 CKAtZWLqnA06Ms7kcFws Vj2pRCErJEW7GPByjRCp Z8YhqF8yTaLeMCOg KVEeF5KanTCgXGqvO659 RPyeMcY2FRRnzyYyR8Qy MSMarQdvSpK8x3L4Gg1J JPonqqw4A1ZcOric dHI+LZ49VYRqWT91bFRw gBRem5dsmTb7NhRoAYNn XYF7zEesYChbq1AgYGQa P96phFQih8W1AFEo bGx (more content not included)... [facility] Coding Summary HTMLBase 64 SzoziyobBJb0uJq+PGhl YWQ+HQ2LUPLcU58rvTIt oM9eG6VFWIeOEdyrYUWT GOjYVgYivcWkLB7wkLPn ZXJu IC8+VD1sUJNyEgsieQVf m4E7xHV2K62mjp7cMKkf gXT6ZCWcAoKyvntbj2iv yDt2AZpuOzzvFiLd ZJInbW17WMJ4nJ70Eh84 aLXgeESje1twtVj0VbVk TEOnWUE1gTnyPYbev7Eg QINvW54lgPAgu8E8 IGNvbGxhcHNlOyBlbXB0 sP6fULwhnsrgp1icnltf Vwo5qj80wKOil6V4cMG6 U0KdjqH8CDYjdASu HewoyRNVsT0srgyvw1gn jwfqQlGiJFPwOUk2KZc3 ZGOaaKkuUbBaWQ75KVY4 CWRdcpWbK8DsBDIn yKwsInT7j1Q2Be9OO9UN WvknL5TVJQWZOEdmvKA+ II64tk34H0HlQhztVab9 WXCdVWX8nJB7eF9r JTXfOXgby6Y1uHY2S6Xe lcWhvb9gk7wyCDIqIHqa L02zgWAjg1U4JHUelIV6 WZWwyHmsDuRzhA42 Oyc+QGYyhWbpq6WqIivd q5oyo0orqAa5BukbUUYb qiRqgLkfOQN3a8ShTl7m RMLvoZX4aOO5pO1f LiZxScR4INidJ196SzEg iLOxMhesA95cU2KgxCI+ MAYoDhq0RVUydQstTD5k Q4ClQUBxpyajgECb tIloPP4eDJFdpjadUUBs pK6jYRUiE7k7DrKmVlR4 PLgaM2GtLECqggqsGq17 hP2rSaKjQtL2HRrh H8AmyyY8YYBtpXJfGSii GGW0N76js4Y3FSUpZWPj GDQ4rZS6mE1xgFjaugte bGVmdDsgdmVydGlj AAwgBMjyN664UCObcXae PkNvZGluZyBEYXRlOiAg MDQvMjYvMjAyNDwvdGQ+ CYImPEC3gRzyAYHk tQRqFDmePj7mdDayvSfs SI3bLNMtsjucTCDjiQ3b NKPzaSAcuRaeDJ3sJNXr tashj940WdCwNTE9 TLGyrHXeK5CewG1aGnYt BWGeKEBrA9XthCVaVJbw B438HBuuCfQ9CBVvfgEv W1LzKSYduUqaLrZ4 a0Z0Gl1Qt4YakvsiF0Xh lOGiQiUyZlniVXv6O5Wk PjwvdHI+BO08FBWhKO47 FRm1QLU5rTtxLIwc HGNcQ8GrcM1sFaAsAZSs ZGRkOyc+PHRhYmxlIHdp ZHRoPScxMDAlJyBzdHls JK1hIh8jJRLbCICx jQcfyDHyVdFrq3ngWPAl WPfnYP1epHiwI3LigOA0 FMAiq0b9Iv87E66uM5Aa dXA+KNLdbNV3cUC2 yF4vSsTeUcP4UZaoF929 OwQniMDrRmkid4eew4zs gEv7MfA0RRHktvPfrQfy YSO2g3PlHn66M34m IHdpZHRoPSIxNSUiIHZh wJihld0yrE4zCl1+PGNv oEB0sWD6tF6uTvBmKrL5 NZpfS716SwEeqLTz Jaffo9lzw5ufhYt6ZfEk XHOfseHcgOqdZLV9u6Gx Ed47Q1VrnLgxc2JyWat1 zq94fMVjw8B8nKP2 B4MvGJCfgvoepAMieSou DL7dIRWcvsfhIEJwvF7d RJMsA6d2BhUtGdX9CVbu Z7KstjR2BZJqpUKe WSTzrKDHrE8pkplgb1mj lcjoHmApPWNoRUj2WIq8 ZCQmiRhgYiWbIHV7OwB0 GKY1bDKupJ8whNiz dpbghZ7pCst+NFK8oOVo zMBDFB4zQqopjXH+PHRk VJN0hUclVJzrANTjlJ5y TOWiR7v0XbBnUsL5 LVmqX8ZqziU6MMEaiIEa IBJprORWyM4bbbsks3ch kiptGmFlJAVpOAj3CBn7 LWFsaWduOiBsZWZ0 FtK9OHN8pDUxuS1fjFwb bxsnwR1jMrx+QmlydGgg VGH1PFg2R1VbKhl6NEFg wXifPR3gsLCdVTmw Hc8jbSfewThxQV8dCZHr nsksc104KaWne5adPVRw mPVpMBrbRPK4L51me8A2 QIDbGMOkKMK1gMK4 jF1ilYjjsqvdjWVatIpj vhScdCxqGAsfJGhgG078 MESuhCblKoMtJBj2I5Tu Zxn8ULJgvBcaBC1p fKRvDQboXo7cuNmwiFsr FZ3mLLFmoomud643SwDf r1yePEVnxHVlCCidTOQ7 K77ia7Y5SWWqTUKc FIC5bXQ3iL3leRwsuvwl bGVmdDsgdmVydGljYWwt JEhlI901PXJagCkjEvLg nRp3B5OaCgd6TRAq iPpnNG5vhKHaMJsoZi8w lHkrdJsyVX7vTLGuddgi f129EnLkr3bpMCXiiRSm ETtxDBK2E03za8I7 YUCpOWGlOUF6vQR8yW7n bGlnbjogbGVmdDsgdmVy iJlgZOojQIqjS134MBGo cDsnPlBhdGllbnQg KUeuLFj0F1JrOtfuyQO+ JS46QPRwLE50zSOyaQFd q7onsDo6ToWsNNNzNCD3 mGsdHWxyq7WwGXOv Y19tjDTmk0L4NGSsaNey lGUbWsHelND2xV8yZVin fgten3ruolnpTcpau6ja yu44wS29A16oEAfp ZHRoPSIzMCUiIHZhbGln zp9lhE8nQv3+PGNvbCB3 nJF3gS1eLCNeEwE9JWcf K215BwQugTRmOjvg l2jxg7triNf6MhZ3MQFc bsAcqZywDMG2c4AuCc40 D40pOSskATOlFRGxJZSo AJUwlUdxfd0tdK1r Ii8+PMLutBQ8tZP8zN9z LpEiFkB9HHumU696YsNc oZCfPdzgZ24kG4FkhFC+ OAPbMte1CPEwwRzh BB8evKPsSTvxDu6yPEF2 WbReSlYgBAvqX8XwOJDp lgcahvosdNG4UHXqLVJx pD48Lz0vsJbfCTUj nVIIyS1sqhcze1nmoxvz SjDyUWAgCIu0QZt0MWSl pFkmCwWzBMN8LxX2CBU6 tHKhwF6oeSniakny xU7sQ3IjXLAgguxoNu33 fS4qRbXsImI7MPfxYcm+ Q4KUWrivGG8SN7gIBUhx SzwvdGQ+PHRkIHN0 eRydGIsrZURvoJ0vOQAx Q5i2BjSoNuY9PDvlV8Ve FGFqfuroTu76tN4eMnYb YmJ8XJpaK3FqtyX4 OYKrmTRwKUtwJRJ3C49w m1L0SYOnTHVsAWC0rFR5 tF7wjBmpmrsbfZTbyNje dmVydGljYWwtYWxp H300PKKhmOtcHgCmAlU3 ToQ5OqE5Z7TrXzi0RMIy pQeoLX8exQVrFMpaPn1c gSjvrWxuYD6zXEVa wtytMDAgbZ4hYRIrbUVx sPxeXJ5tCVIaqeyqq844 EsRjRBZ7EPYrdASjP6Tu zL3xCcAcRQZoZACx A4BzzCKmSYlqD779HHua QuK7XONiqoKmG6UqXLXw sShdVpK6a8R3We71MVJP ZWFyczwvdGQ+PHRk VZT4qLanGZzaQVBqmW3e GLCxC8v2EfGxTnX8XEai O7YpBJLqaztgHz46yI1m YoFvUnM7YKxdR7Fl nfC5ZWNmvDRtJNxiUBJ6 N90bg5Q1XHYoPNTvIAE1 hCS6wR4suCmlrzpefUNw dDsgdmVydGljYWwt LZxqU328YYWfmFwmXp9S PEM4C6LfHcy5YYAtmWua TX2wfRFsYGrwUu6psOjy cUmpCF2wSVWmhgad RTEjcW2zHIJrsYGmyKet TH8lUIAddgapc313TbNr DAP5SERtbPPuN3TduC1n EdRhGAPoICYzQ7Bn iUDgEUdtX864LEuxUhZ8 LZIhfqCvP4JdHSVooAkc RlZ0v3U4Xh0SNRuqaDS+ OR27ar65N8HjLcsy Mkf5SISsARC7lAZ3sB6m UKWkHHrco7B2zKF7X2Ev qxUcws0cw7yfPLVkXTpv Z74ixXQio7M3VTKd hFZ1CPOmgNjoNlUjoP64 Oyc+KBTlaFdhg2AtBdnh k8gex8sesGs0WqDaIURj pzMpyRxoTHD3q6Yf Hl93U93qBFkwBNLvMYRx EZCjSYQhdKlutk1bcV5n Ii8+ENZytRW7zCL6gB0v FyNkUfK5DRxqJ661 QlXzpYLnChseq7kvw2yz bGy1WhRxSQYxkjZpwBof TYO6f9KkJk65K9XoyMab n4XeFun5cs79oEBv h1T8tTC0X0YaNHSqnffe kVDkyIxqID5aEWAecnfm SUOxwD6eATIwY6b0ElKy IhC7QUtbY4HqixL2 EOHjyDZaECWazAEUgE6e pogrv8hfpgikFiJiBNPw ETr6XSl2GRNqzOsaEtXb SOC1TaG1LXP8oUYv aE4upPqvalrjgL4zVyc+ TCo0h1xwqJQbUC1ugQG2 UW13AY58kQCgd9A9iSQ9 A5UvEYRwmeldazvs tVK3LVIsPKVguV98De5v pRpeXb9rHPOoLBF1JPPb iNAxH5EdvV2bAeJnDJUk NMGlV6ZmuVVoWGmc F656NMngLuR7WCJotfWl E7PaALFfkHtcLlV2p4I3 Mw5RQS64YH04QA61mZCp e8X5jGO6W9GqDQJb avjmytqozCK7HTWzRXYw tR49Ju4vgNtoTk6lXGZl JKG5RUMjmKCmD9PhbJ9q SgOnDVHrZVDyM8Wq lGYrEMffZ321NPhiMfK2 LJWtihDzI9HxLCIjdTgu FnD8y9A2Fa0JRu37HT36 CN02zHNzh5J4kGI1 F9KeSEAgqqvotlakaJX6 XKQgXEXtdD18Oe3ftSjt Ec0dLABdUEL3VVIzxGXa U8WbzM4pGsRdCVBm JBWeJ9FgeSFlVWcgG840 OHzrDjC9KLJkuuJhU0Qm RYIxfIhjEsY8q6J2Hw6G PQzagxu0D6DnCmnr dHI+GI43WRQdRI53eRBr nKRtg9tytPj5XiTkXXBc ODG2hZteDKzgd7HmTRMz J85bbVYpq2W0NONg bGx (more content not included)... [facility] Wound Care Noteon 08-26-2023 Wound Care Note [id number]#1. 00[facility]IFF [facility] Coding Summaryon 08-23-2023 Coding Summary HTMLBase 64 KylchxdkXJt5aVs+PGhl YWQ+LQ4ETXJyV32goATb eD4fQ1VUVPaPLgukXYNB NZaBWeXicfDsRM0fkJBg ZXJu IC8+FD0eEXXgPonijLEa v3Z7cKQ3W21zrv4uFWqe iEE6ISCaNmRsjqrny0hz dOn5NTnrZlzpCpDw UQUtrG99VSY9eK00Lt32 bATomOWho2olqGv5JeLa AKPcVWJ5lCogMPpfc7Ty JIRuU97wlLCsl1V9 IGNvbGxhcHNlOyBlbXB0 mB5bXCsfslxud3qvzvct Gnq2en56yCQiu0Q2yBO9 V1StsaW9TTLyfITs NlbnxXNTmT4unlqtz7ym iriyGxNoQFSdWEp4NNw2 DQQegRzcYbXiUS83RUV0 CKOuapAtW2WzFYXi lUgdJcP2w6B6Gb0NZ6TY YvzzQ3AUAZRCEQauuBC+ KO74ha94Q8TmHszpCye0 NXDkOBC0cNQ9iP2l IWOgIPfbd5A5mUY4B2Zd wfIbza2tc0tqRANiGNue E57ssRFmr7P2TAIukCS0 KEEuvDjsEfYmkZ16 Oyc+EOGrqOphm0KuAmlq y4uyh9mvySn4HczkZRFi hdLtdVkaSIK8w3QpZq8x DKMqmAG7yFK8yO9u TrNlWuA5DSzhR038OrDe uTZsCshoG02bI4BfsIT+ LJIyEbh2LZHswPhmSQ4l D7NaTRIcdxcfcXQv zQnfQU8fYKSeomcwGMCp rQ2jUBLuB6j6GkPpFuP1 AAulR4VhHZEtotxsVb59 kL1yZcWeRmQ3BPso L6HqrvG0OOQwqIQhFHyi FYY4M07iw4B1GDDzXQWb NSN3rZO6mP3jlOztyqbu bGVmdDsgdmVydGlj LPylGXuhC706ZZXlpKtu PkNvZGluZyBEYXRlOiAg MDQvMTkvMjAyNDwvdGQ+ EQYmRFT0eNkuTCSl pAYhNQisQa0slMrlrXma DY0mHSHlegdsUADivE5c AQVgcPNqqBjyTF0cNAKu kabuw776SfDvSTT5 BYZwhAYqG6ZesL2lLyPo JCDgQNOpQ7SrvMTpCBdg O652UKubMuB0FTXoroIh E0ScYFFhqZprXpI3 d3B6Lg5Za4DjdxpxU7Yy cAIfGtApIdsqTDi1F4Xl PjwvdHI+CX56VNHfYY51 KMi3DSE2oVtxQVjc PQMuP2NytH3iAsNgVTRz ZGRkOyc+PHRhYmxlIHdp ZHRoPScxMDAlJyBzdHls JQ3fKf2mIAWjRDMi bPokvKLtPyOxh2fwDORn IEcbNP7zuQdqW2JslDG9 EZEvw0w7Xl93H92aJ6Ky dXA+OWJjlYU6cEG0 fE0jGoSbDeB7MBsvX872 ToPjcGZnEormz3zat5jg kBt7BbV6XNXdrvYqjJzg JSO1d3HsAz75Y12j IHdpZHRoPSIxNSUiIHZh oRfpwe6ntU0tOs5+PGNv oAJ8yPE0kY2aMdRzGtZ7 YBemS861IgJorHIf Vbndc6cno9hdxKl3RkKl ZEBgemRyrXpvPFH3l9Aj Sg06V5HwlMtms9NeQie8 ea97tAPsu9H6xRU4 Q6KcXLDtsbaqqMBusWdj HL3jAWBnjcpzJJLwiW1i VZEmV8r7PzQuWvI1WVyv K5EvnjH8GJWsmFSe PZJloMQMwJ4lqorke7hi tssdPkZbORNnNPw2CHf5 SBRyiJnyAhAbAZT7QaD6 IRS8hXLnpD7keCar vgwpeL0dDbw+BDW9gCLd xJFDZE3kPaxdzUA+PHRk QLY5vPbnKWutCVUxfP0i XBQoZ9b4HxNfOdJ6 BTlnF3TveuB4PTRzcMAh NOCrtYTIdX2qcyksq5xx wydhTxAkPUGyXIl4VEx4 LWFsaWduOiBsZWZ0 UeA0XZS7pVNoqW2pwBur gqwmrQ2fVsb+QmlydGgg OUV7EIf0I9YaIwt9VTFy cJykSL7teRAqRFkw Xq3ghLiybHigPA7oPVMh rasjo620XkCcd0spZLDn mMHjPKhsXOW9Q18oa9F3 KRYjGIFuMBP4tAP3 kQ3pzIdlbnsgzSFptAwb zcJjsHgxRCsfOUnhV832 QGVjoAwsZhXyBUy4F6Ss Gch6JQZlwIcmOL2a aEPgNZpuWt1dtJpuoOqq YU7hFZXtnckcu244GjOu l7lkBGKcsUQtXWtnSKG4 E45xf9I7BIUnZRRj PDX7uUF5kR9apCusomko bGVmdDsgdmVydGljYWwt PPkyZ195EEHddYfnYbHa yZn3A9DfQve9JPDt tDzfEN6dgILyLLzyMi5v eXqbwVpyFC2yPZPqwjfq d336LgOou1zjRVGlyJUg BRkfEAF9J52zx4L7 CHOsWOVkDXW5yIS2zL3n bGlnbjogbGVmdDsgdmVy yOltKUjcCUpuI574XCPc cDsnPlBhdGllbnQg OTlqDNr1I8DhMzijoLB+ HY71ELFlHK25dDCwaMNp a3azoEt6RwUpHCDwDUL8 vCqiMVgfw4CiJHFl H96wnIJah8Y3WTCjtWxx aNYiXiRluKG8eM8wIYlv ngxdd1uxauhrRkacd3vf oc43bK63F22eVBog ZHRoPSIzMCUiIHZhbGln yz6kiR4zOf4+PGNvbCB3 lDP3hD8mCVAnKiH6EKyn P320LzKbdIRjHmfl w4yjf9unuIk0DqX5TPDd yhMbzDquHEP2o3ZeCs82 S00iSKsuOEKtOFTrKFMm GMLynRcgwv7vbZ0d Ii8+SPGzcAS8lJB0nJ9e WiFvGlI8DWqvS862LvSb bSHdBvgqB29vL5UpuTD+ MRFiNwv2VDTyzRtn NX7maIUsTNgdRv4jLHP7 OcCtQcNdAIhdE6JmTXTz dnknitzhxOE7UWBdJSVo mG85Ds0kaFopOEOk qXUMmW3bffqkk7rqalpg GrDcQMDiUIs6YZf4CQMw vRwaWbCcUGE5WlW5XRY7 xKMrlK9ycMccbxlz zQ0aQ2DhHKLdyqmsVg23 eN1lMwGgEhN7VKymFfo+ A1IXLgpqDH7TR8mXVCga SzwvdGQ+PHRkIHN0 gShoPQncBGZoaN2bKXUl I7z5QrWfQgR2IFpyF6Rm IJTrwqbhVd62oO3fAaZz UdU0PWroH3YuoaP4 YLHpkTCvYEbiCZB8H91i l4Y3CRRhOROzFRF2dMD4 xV5qcRuscsjnaPFqaYif dmVydGljYWwtYWxp Z785ZSKvuVeqBgMgPtH6 SdJ9OiX7Y6EqTnu2NLZb uBsgYO6tfAVhLNvrKf2v eWqbxXgzLB4cFDRf tfryZCTqoP6zWKDsrSEc wOawGS8kZAHfjgsil165 KrTjTQV7SXBrtUVxT8Im vS2kPbJnBIWoBNHf W7JyoMYbHEjfC195EIds YkM9SDSvspNgV1UtEFPv vOsySiC2w8Y2Aa26UNAM ZWFyczwvdGQ+PHRk RTF6yNgwCFuxRMFtuG1g KYBvZ4t6ItZaOfZ7PUwk M1NmEZCchedxHs99zO5m XrLlJhH7KAdxJ4Yi whN1QONdxPNsWSukKCK2 Z45bf0O4TNMvKUYjUJW8 iAD7mP4qmFmbvteykVZq dDsgdmVydGljYWwt ZZmzU119NMFpyDaoJb2S DAY4B0JpHia2KGNreYnh FP6xrGCoBNyoBn9xhSfc kYgwRL3pEZZqrypu HEBwhA9hQJWbbBEjeThk ZD9vGFXpabsbu665DuAt HVM3PWBuoHZwJ7TsdS8h BhLtLVCeCAGbI7Rx tMQwELfbZ952IOpgLwI6 IFZzhrRgY2OyMCZbcDoa YvK8g4L1Zq9MFNmplYX+ UI45dn96R5OpKjhd Gjw0THIiRIN5gSQ6hL2g SQPdUHfaf9F0zFR9D3Dy kqVlgc8ek0ciBRXwXRjc S84bhSMhe4Q6YAGu lQU7UCPpiChtRgVrrP14 Oyc+QRXimHlff7PdZmou x6nfo6romIi8QuVzDAQn fuYbjWscSKN1e8Mn Ml95M17iAYyfYXHiNAGl UNXmDVUaiXbjaa2qmC1k Ii8+DDSafTI4hXQ8gQ5d HkPaDrG6TWwqG406 UuXzcJKlFghqi1apf2zz mZd0UyCaNWPslyAlmDku VLS4a0DeTs99F7YtpAzr a2DkLrb0fj40mEGh d0D7cIK1N5MpDJDyoefq fRUjuYcmAA7uTOGstqom BXKybS7gYOWkH1b8VhMb SeR4ABafU1ZyrgT5 FPGrdENdNYKsbGDDfE0h iokjg3rozlubQlEkEAWl SXe1DQy6CBEkiZwpOwMl RIA1EfO2ZHE8jEIf uZ2inIjsauigsL1uWca+ RWu2x8hnqGUkUT9qxQL8 PI93LZ35zKJeb3L2uBQ7 J7ErDHEiwsarzslo kHZ1MYTdTUImzR06Ux2g fBcsSt6bFJRbNIW1LDVf tONcF5SxxM5sSpGrNXCx CTDyI3CknGWwEMqh F227LQzzOtY4IIBpqvPv P0NqSRDgnDnaCkQ4l0F8 Dk9AAD60SQ54JF01sZPm f8S9sFC7N3TgGBZa mprjkvcpjQB1OTAeVRCr dB15Ce6ffMnzUr6eMIOq SHV9UTOubENzB1VicH0p HpPdDMHoKOKjZ9Dh sGGpKPsyF286QDupOoJ9 FUKtikFpN9SfCWEdqTpn CuF1j2T4Na8CXn54HP64 KU74eZZrw2H8pAM8 Q2ByGOHnxnzqtcdtpWB9 KSCjDTMwrW56Pf2grLhw Nj0iKWTgBXT9AJAiaYFh L2BkbX3bUeJoSIHh ZEMsZ8VdwOLrPExkT090 WBnnBkN2JEErxeEmZ0Uv LMXuuFmpRaN0u3C8Lh5X GNiypzk5I0DmMwgr dHI+XC88ITMxFC70uSBs tIYwi6fpbHv4EmWiMSNd ETO1fTipOUqwl8SdVRFm G71zrHOex6M6DGBe bGx (more content not included)... [facility] Wound Care Noteon 08-19-2023 Wound Care Note [id number]#1. 00OTGTIFF [facility] Coding Summaryon 08-17-2023 Coding Summary HTMLBase 64 VgyiknuwNZl8iEs+PGhl YWQ+QF3BWVJqJ34reRTw kF7jD9ABPTwRFkebNBIM WXnWCwQwczWrCO8afZMa ZXJu IC8+RL9fMRNyJjeixVWc c3G8yGN9A37ajn5pFZgz fTA4UTYoWvQpkacmc8gz tEq8JXbfEyayWkXg BDSynH01QCA6sA05Ki72 gTPskACeh4usbGz6KbTf MBZnWPU5yHtpQEuln0Bc JNEhF24fvIVob2Q0 IGNvbGxhcHNlOyBlbXB0 oG3cZBobpooab8znfpjy Mbl9ax06xDMbb1V7oRY9 A8KexzB0UWZujYIn OutkaBZImT4gkixsg4eo lackOgRaWMHuRAv3RLb9 DFPmrSgoNnUyIB60PHK2 IWMuayRiG9RhWKFb rDbhQmY6q0Y6Lg6TK1AW GxywW3MIEYVZJEztrYO+ EF83at95L0YgTvdtUam1 QJSdETT2hLO4iM0k FYRiBTczj7E8xFO5J2Gt xnTqvl4gg5tkPMEvIHgw C17khVWop3M5BFEcfUV6 NGEwiKouSsXasG64 Oyc+VCLkjLjdx8DhUkin w4nzn2bzaZb4GjlmHWRf vpHxrQdgMJR0n9LsCg3g VCFgqHO4zWU0sN0v ToTdDnM5OSabU003KcQa aPVzYruoG27wA6UsqWO+ QMJpLmm3MEVgaSnlZM8y U7OcHUTumvtgrEYq kVjdCX2yPAEfyfgoNLIh rD6sXKYgP2j2ZyYqCfW0 RZjzI9JxCORsjdftJo40 cY0aXmBhYvC6ESnh W7HefpZ8WTDziGIsZRnc FDQ6D90en4P2TYTeBXRh OUA4rIX8vV4coCnzdciq bGVmdDsgdmVydGlj OXxzUUymZ179OBMzhJfz PkNvZGluZyBEYXRlOiAg MDQvMTMvMjAyNDwvdGQ+ VRIgMBJ3jXauHXWs dQNjDJipIo5ioIjqlNtx MB0zVPUvgeocQLTmkS8m NAHcvNAhpKnlIS6oBDFg donfl858KsZaDBI9 KSJadTHbA8DbpD9tZrFu REUgHSIdK1LrnPJnONgc I065LEqoMoN8SVWlmnJo R5VuVKAfnSqnMrD9 a7C5Pe7Sf8RqwpebV3Zs iIThSxQbJpexLEe5F2Ar PjwvdHI+BP55XJBuND48 SCo7AEY7cHcjLZto XKQqZ8TytX6mOdPjZMYc ZGRkOyc+PHRhYmxlIHdp ZHRoPScxMDAlJyBzdHls ET6cNc6vNONdZQJs tSuiaJHmGpGlw8dqGKKc VIqhCM8qwPmjR4PonRW0 VOIuw5j6Vh82C59tB4Uv dXA+OUAeeBY1tTC4 pB1oRtCmPtN4DXzaI457 KtNybDYxNjkyw1khx6fo tBt9PaV4WCZejjTieWio MCJ9r3OsYm20R51m IHdpZHRoPSIxNSUiIHZh iFujni5exE1bHn4+PGNv jMP2aXI6tP8gJgCeMdS9 EYbqZ368ZrOrbKIt Fkkwj5ngc9sebMb9NoUp QYOtogCrvOhhBRO0g9Zg Jt94U8DhnJlqd8CnVkg3 ha16sFCls6O9sAF3 R6CsSHMihbrklNKhgSlh UG8sAOPfrwcgTFQwyF5i QPFjF4y3RiLmJkJ4RMfa K4QkdnA0VSWfgEZg QEOnfERWxM3zxflse0kw ztdqNpWrRNJfQUk0GTh5 TMCneIavKcUaZUH3StU1 TQJ7zVEerL3zfOwy dilrtG3vUmn+PHF4qTUb wLKFHE8bOeovlZN+PHRk MAX1mPmgNTxoFCEflZ6c BHHrB6k2KlGiIfS7 DQmhD9IbffP8QANlaJPy KKUrfUETjA6oejwbj4of gxzlAaNlHIIrQZp6MLe8 LWFsaWduOiBsZWZ0 AdW9SJH0dSNyzL7sqGmr lcvpaY6fKde+QmlydGgg BJK6CNm6J3WmJfk7WOZe bIftIK7fcURkTPoy Pq0ssUlwuBcgBP8gCAWt bahdx144LuQor7ndMOZc wJIlJNmzSNA2U35fh7J0 JTYbRDUsFNR1hXH4 mT8zlNdjayuimTLghTsx aaMytMszPUuuTEsyP746 LBSzzBxcCwNiCXk9D6Eo Pud1BEQilKtmKQ8o cPOfEFfePe1aiActjXjt FC7dDEGmbbnte436EmAe k0vqVWHwbVTaGWuzAZM8 B30ri8Q6QIQkVBAg WFK0kUE0fH1icAnbtway bGVmdDsgdmVydGljYWwt ECqyN540HOUsxEfoDvRw vKc3I8WyFge9XAIa fLnxKQ4buRBzLQwxNq9c sUfsvWsmVN0wMCOisabr d627TrMsl7rbTNRnnKOb VXkoOSC2W58bh4H0 CLIgUZRiZVE3dPI7mV0i bGlnbjogbGVmdDsgdmVy zGzyZMglQJevT812TSSb cDsnPlBhdGllbnQg ZXyiJEo0N0FuDzmanGD+ YS49DHDbBP56hKAamVJz n9raqDq4CwYqHWMaBWX0 wUbzKWsec6QoFXIx H13yxUCiv9R4CSYgxIke bQVcZeLvpEO8fO2wQUcv akapp5rqmtscFpzbd9zt ku78fP23X43bBMms ZHRoPSIzMCUiIHZhbGln av0ekS5hZv9+PGNvbCB3 gUU7uR2aXTWjDpY0NNut E217QrPcwEZcEbac i1ldl0nxeJz9CbA2PQZh hyYctGqfFTE9h4HsGy73 G29sEEiePATcMLVaUEFc YRYsbCxwhd8xnA0q Ii8+OCZnaHZ9rDQ0bR5c VpGkDlH5LKhqS421KoOg kGQoGhsfW91oM7PgfPP+ CNLlGky0SOJbnPze SO5txSLiCTnfTp9mXDL6 TbHyXqTvANruK9EeCMGc nbmotiiomVX0XCPzMXEp sN83Fr1atAlhOQZl iMPEzG4eupgxp0wnasbi ApEtHKUiSGf2MOm5DRJj wOsyCgPeTDC2HeL9KJV9 hKPluE9cpOvmnsju lB5yZ5JiZYRpeikvCx55 zQ0dDjVgUuK4EYycRhc+ A1GVGdglIN4RB5eZCYpo SzwvdGQ+PHRkIHN0 wXnoBRrdBEElpK7pMIQn D3r9UmAfEtW7POnhT4Lv WSXtuqudDs59iR8qIuJv EuY2RAquY5EytvG7 VXKbhIVrXLkpTUG5R40q u8Q3GXGaZAHuQOD0bBF7 iF8yfKrbkmuknGMthYds dmVydGljYWwtYWxp K827LNDssGlcGmDoCzX7 KkY7NzV2V4NvVga7FRSl qWcoCO5cgAGnDOclDt8x oLlnlRjqPV3gNFZk fbeiXKYekW7aSFBrgIDi xOjkNZ9mARXvhkjrm779 ZnWmIDC0JHGffHAnO1Lp tL2iMwEhTEQcLTAc O0ZvlAEzQEukR951GTnb XgJ7RBHuccLhG6BdIGTl vChuTgC2z2C3Mf27UIEF ZWFyczwvdGQ+PHRk PNQ3uXrqVWwxUZSfyF6b IADaW7x2TmOaGqC1MJdv S4GvXBAxulpnXq97kM5y FzSeDvY9ZRkmH3Im yaU8CQAswEKvLXgkDPI4 Y42qf8Y8STFyJZVsRUT1 uRE1bV1qdOpclfquiAVh dDsgdmVydGljYWwt BKhkP225NVUocXauRw3Y EHI1N7PvJrz8NFImtQno GY9xxDZhGQfxCs5zsAre pOqcLF6mNEKixhak KRAoqK6yUCUscKZprKyy AD8yTXRzrnomz112BzLh BFE3FELjlRCzR2TohB8a CsZtDLDaNARvJ4Nt yZHfGDhzX582VExkBhF3 EMXceoPuM4VmMQGcrNwv SxY9k7O1Sn8WFZdfmWN+ IA00rd79F6DhXcch Pkw9DKRcEJC0uRQ6mL9a UPEqRXedw2V2oJP8U2Wb dnNmdi2ru3apLKVcQDex M10miIDov1O3SHDf mOT5MVMnyKeqUoVeeK89 Oyc+PCLyxIpfs7UmJvkw k1nsv5daaHp8QjCySQVl yrWlfSftTOV8e4To Zx16F07fWOghRRDxFZUz RHOhCWMerLcvpx3xoB2i Ii8+HGUvnQV5gXK9gS8d GxHdRbG5WAqrA024 XuVxjXRkJnvna9mqf4we aQi3CzNvADTohpUzaXdj XCJ4j5BiVk56I3BxuIal t8CbEhv7sl97fOTg r7E3cFE2K8ToQYFawmmk rYQexGvfJL3iIGWfcpqv OWSppK5uJQYhD1s0LfVn DpB5LObnB7KmudZ9 UVQuuGUzHVAngIADxD1w fbywa4lgvobpDkUuZCOe ZAk6SXa5CZKghQcjSqVv XIB4OiP2AHE2yEXr bH2krOnacmrslZ2uOzj+ VFi6v1iaeJFtWH2awBS1 BM05AB05qSUkp9H3yOU6 T9KlQVZsspetbuko mVW6SEEkJPJkkN56Yc8h lAodRu2gWNKoKYW6JPSl oAEcR1PygR3zGxVaTYAm FPHhO1TieALnSTtl A060SIgxXcM7XWUeayVe Z2YlSRGhoNlbOkS5i8F9 Cf8GTL60WS61VJ93wEYk y8M5jAF7B1OcEOBj frgzpkvnnGN5KOAnLOXj cU48Nd5vgYaxGd3uUNQk WXG8LWBnaLZeH1JdqA0v ApOtXQQvWHOnY3Li oXZbJKxfV932NKfoMbC1 PDZrbjEoO4PuTWTfkRck JzQ4t8N5Zg3RUj65SA81 IK89kPGhy6J8sDV6 M0LaRWPmapkwycbzwYQ0 YUIfWEHwrB62Vg2chMkq Xc9rLZVvFOM8QQEhpSLj M8GcbB8rSuTlINKj BPAkH3JuxKPmQTpiX477 ZGafDvY3DTNrxwAhS7Jl UXBltZzsVpC6b5M4Bp0M PIrhvgo0H6JaYacc dHI+ZM20IFXoZD16hZBx kWHml0qihNo9VfSaRPTn EUX1wQykMEwfz0WyIMDs S04xrMKwz5R7VSGp bGx (more content not included)... [facility] Coding Summary HTMLBase 64 NcvrzexoXXh2eMt+PGhl YWQ+BL7PKNEvI29qxGBg uF9kP3PDOVpCLbrhQYIK CLoPVpYjihHrWI8msCYf ZXJu IC8+WD7bYXAvRjryrQEs r2R6aHQ1F52kbl4yTXin eQB5TNIrXuYakmqof1ui vKc5JPmtGgkhVpEh MJRcvM36YPG7xM24Dw67 qWYzqITsc7chfTi5DdMp ZNUqNLL0pYjmZBbpg1Yv DAIyS26pbODgh3J3 IGNvbGxhcHNlOyBlbXB0 sQ6dXAxfpgbyo7aegzcq Ahz6ax15kBJzk3C6uXW1 R4DbunP2PLSsjFXn XsvpdHWYrM7ejulwa8tt xsolWoCaBIKwRYb5DBr8 JRQcqKbuGgMzJJ47CSY4 GWGtxkExD9UzHCKm xLorXuF7y7I7Pu3VA7TZ AwrqK3BJQWXNAQrzmSK+ EM23po28J8QnKhuwQpq9 PYCoCGW1jUM0nV7s XXNvNTviq3S6tUE7M8Qo ltWigu3lf9fbWJRcANui G15vbMJhs0H0XLPgjHJ5 BLXqrPfnSeTpaO09 Oyc+NNMixWcrg5PdXjhr u3zqb3txuKs9AbksHBDm zlPzbGcsNRI9p5QcRu8j IVCmtFJ1uIJ5gM5a XkEfBgE5QKbaC168MyYl dSQjPkncR30eW2UsjXO+ IZNjPsz6JNUsqGgiIC6t B4SjNRIqwlopmKSz wUsaLR2hKTRaqgekDFRl xO1bJEIeX5f6AfWaIaW7 GCmrK6IjNVJikbygRl02 oM8nTmXtLuN9EAze F0WeunG3HNDnoTFeMKee SHJ3W98rt3Y5QWNeKVEs RVN6kVT6cX2etQssarxo bGVmdDsgdmVydGlj OGrkWEcgJ157EAWvbLlr PkNvZGluZyBEYXRlOiAg MDQvMTMvMjAyNDwvdGQ+ IFOeAIX5fNmaDYPq oLQsKBqcWz5enWqpvAwv VK7dPCHproavVKNxqN2b YPSyzVGayZytEW6jQXEy dqkin388SzXzCRJ1 OUMyiRRjP2OhqT7rAzMy FNSsYKSoW2MscSCwGKrr X166TBnzAzP4KHFacrAv A2VmUQPvlIgvObX9 u9A6Ke1Mg9XtompyN8Dk mZRgHnYbYbxmABm2R1Se PjwvdHI+JX64QSNkNN77 GPs5XXZ4lOnfDQtw KXWgM7NnsA4tBuYcLTCf ZGRkOyc+PHRhYmxlIHdp ZHRoPScxMDAlJyBzdHls GA5dLo2hYZJzMKQj wBttvTRgLxGct2ytFFCk RGqjJP0rmCdkW7LnhUP9 LGEfc1g5Pb78C60lK5Qc dXA+EMBcsXP9eDS3 cL0hIjVmPiD7NJsyU663 HjSnbUVjPeixq1zbp1qr gOt4QwB3ZKMqrwGlkUxj AFU7g6PaPf22A15w IHdpZHRoPSIxNSUiIHZh jGreoo6bmF5rSd7+PGNv dYR3yGK7pW4qUyCbOvZ9 JAdmX814WoDacRBn Qtvou2hbj9pnsKm3AnNk BULjwgMyrFeeOVU0t8Gz Xq88Y1YuiLiiq8JoVhu8 vn93eNQhg9P9jFH7 S2TjCTHwuglbrKEqtGgs TX8zOXKudsuiVHJbmV0l MAWiU0x4TaUbReU3HUfh V1NppeB5WEAnpVHq DAAjcZSNaF6zgxegq3if oryyZbJsUXHhGWm5FTs4 BOLvzArrXoKiSQS4ApU1 ZUA9iTTtcG2krRzk yxddmQ2wRwz+BFT5fMLa iUOMCR0iZrwrkZG+PHRk LIE1sFpvVQhyFMGnkG6q ZIUnL9i6PhTpPmM8 YPwgT6GipeL0EXQknXSu LSUktNBEaP7prbhuz2ow goqgWpLnHTFiDHu6AEi2 LWFsaWduOiBsZWZ0 IgF2POP1jEBgxD8csOkd bbgjgU9fXww+QmlydGgg RJW9NRw8K0TaNau6FJKr zSgqMT3bbBWfMJme Io5biLsxdEbcQA8uHBTi uuurz819HcJvv3vhASXx oRZfAXrgEUB8K45cj9W8 LMPeOMJxJMW6hLZ6 nB1pgXpzvtrzqKTlaRcc utDowVwpBFvkIOvqU872 VSWzwHntFoSbIKx4H7So Mzl9ZCPqbKefKB8o rZRrWXyuEl5tqNklmKoi OJ4gHGEmlrbwd340ZsJn j0knUQAnqPIaCIfkATG5 D18yn7G2TJQsVVZe WRO4lKX4zL4hbRkbopph bGVmdDsgdmVydGljYWwt FOssX407LHKykKqrQgTm fZy7O8BwQei2AUCb ySnrTZ8pjGRfAVqwLb2d xFvhzBjdXQ5cULPiaenr w222ZbYih1vdPYNqvFOp XCyzCKW4P53rq3V4 OQCsHWNgWAC1rGA4mW4o bGlnbjogbGVmdDsgdmVy eQofFUmaRZxeQ289EERb cDsnPlBhdGllbnQg SNsvGZq5C0EmXlrndRO+ OX21TZBeHY98eHHsfYHu j3fshWv7WgGmKIQbMUC2 uKtdCNhgo9CgACEx Q47peKAch5P2RTFvwRuj xMTgQkJnrPA8kC8zDPqm gkrdi4wbabuwQwvfc3nw vp49jM19Z36vOFnp ZHRoPSIzMCUiIHZhbGln hq8ckX6bSl1+PGNvbCB3 pFP9fQ7iFTXyMrM2WJkc K971FeLtnDEqQddu v8mbs4vriKt1VgZ3ZUDs ysSsuGbqXRH2k7CfRe80 W43gNBjtVSDhVTZvOSJn WSBqjKxcnx0arE9a Ii8+LFKvrSD6tDK4yW6o QmFbMsH3EKjdH993EvPv tYWzUnjbU09kG9OjuZN+ YMAuDgb9ZICprQot XA7gsCIfAPkoPm5nRUW4 PfBhOgBpLXegW4AxGSGn eddliauwrPQ1THZgXSSn lA44Ah0xgNneKSGs kZRDiV3iripmi2wcbdml BpKiVXRxQJu5QJa6QKEt iIkdPoMfCBY0KyP9DCF9 hANjvR9irZihmjsa nO1vR7GwPGHayusdEk05 rP1xFwIvLvV2QMzoFia+ Q7KZFwoqYD7JY1fPFXwg SzwvdGQ+PHRkIHN0 tOsxLMfmZFHqgQ8qJJGb Y6o7VeFvRdS9ROqoG1Xr WSQytnqiKy95uI1gJpBk PcP2XDwxI7DwkyH9 ZYOonGPfSNtpVZR6A09s j0U7QYZqGOIyCFM4jPN2 mG7bcLgiwmuulOTklPed dmVydGljYWwtYWxp J968APLgaCrdSgHsLuB3 WsU2QfA3N3XhLgf1NEEw xJpbAB6igGOrWQpmCe1e fClovPdqIO9fEXNa bridVLQvtW4cYXMapQBz hLuxJK5gPUFerbtta198 ElCwWOW2WREwzGLyH2Vw uR3uYyWvAPWePDIw D2AdqUWwVIqdE744TJdt NuG6VZLgegWkQ0DzTFRr mBviQaG6w6C6Ri31HMTF ZWFyczwvdGQ+PHRk LXT0rFkbXBgcQHCuzC0w LCNdD4l0DnLiTaV7UOcf G4OpZEUzbodgLv03nP4k VhZbRqJ0BQgeW5Vf etY7ZMQcvRBmRYsbOKF6 E67uz5B4ZNDxMQBjHSB3 bDX0mQ4nwPykvieyyOZs dDsgdmVydGljYWwt JUmrM729TPYkyZkiKq2E SAI5U3IiRkh1TGAqsCca RC6uzYTxWOxvFj7fuCvr kCyqGT6lUPQtgptn MDQdeV6rQTPhfGMerJmv ZK4kDSMgtnhkc837KqSv GPW7JMIstKAeD1EecA8i LrCqMHBmLGTdG4Br sEReIEdeH022QUnmCpE6 QJJrtrAdF0WwSDCwwLer XgS7g3T9Nd9EHPnzsLT+ YM81bl13A2WjUpav Fgu6OYVkHRW0dYU2fP8j OYAqTNwlx5C2pHY6C0Zg xqCdev3gi0tgKCTgIBvx T47qcOUoo4K3RWSv rOH8MWUysGqnSpYjtO05 Oyc+GKRreSavz3UtRoxd a1vww4jwdGp6WuRtSIJr qrYclOlyRTR4x7Wv Ft29E83gIGrfBIIoZTGx TKXiSFXqiQubkr3kwE9z Ii8+VXArjFI0kBX6hD8j LuCzAaL8HCplO261 AhEhzYPfOfhwn2edq7bp mAz6UtGiXKZslxOzsQjh GTJ1x1WgNu59T6EnzYle i2KxVyi1zf47kQSi y7D5lMG0A0NwBUWxfpra zQSimUefOF5aXVObrrph FDZmqP4mIDCfI3s0DsRw JuA2UJyoC9IqztS7 PBBgnXXpDOMeoTQWaZ5g smqvc9vocusjVtMtDISc UXz4ZPr9BLUnpEcdUjHq QPL4JkI5POE2wFFq gD1zgVlhapxqhS2sXcw+ FOo1a1fggIZlWK4dbVE7 VU21EK18uFZms4V1lDB5 G3BtQOTfeihjvcxj zDG4NDZnPUPbpF88Pw9u eGhdZd5mFKGrXBZ1MVEc xWUjS6BmjX5zCnSaEMVy SBTeL9TlfZLfXEqc B903ITlhAvW6KYDdncVo R9NhJOUfqUlnCoC2l9J5 Hz5QWO43WJ10FO14jDLf x9Y0zTU9Q9XoHNOz cxnaikubiHG1HSAhHVFe fJ09Lk1skCubSe0qPVNa DPR0NHAcvUYrE8GoaW4a BeCtRJByQMOjD0Za wPMkESdkT346GPciUeJ5 CLYxcaHgV8DeHTAhtEgf AbT9x4I8Tw1PQa85XJ37 PS11fPZij7H1cVH2 S6UoCLMmdumozgarjEH9 OKCjKBEjaX68Hz6eiRsd Jl7rULKqMBW5TPXmtDRc S6YhwC0gNyEmQKQv UKOgF3EnyNVaQBtuM487 QDcjDsN4BXPabvPqI5Zb BCYcyZkcZtI2l4A5Ln3K XFkitox4Q4SfVumd dHI+WE84BNZxNY00nBOs xFVlr8qguMv3VrVcBNCy JON7jLfgELdrv0NoFIZp Y56uuWFgb7Q1UXAg bGx (more content not included)... [facility] Coding Summaryon 08-15-2023 Coding Summary HTMLBase 64 BbjbecuwGTx9hRk+PGhl YWQ+DO5CJRXhR14jnIVa nQ6dT4ZAKIoDVpxiBZEJ AToXAqHredHlQH6yeTOi ZXJu IC8+GH1sMMCeOvnlaHGf b5F9wES2O87ena0jYXdx aZZ3PDLrXePxppvwx7co kSv8AEmwDeauExBv XQOvhG37XCP7uE88Gj16 oNJoeSSlk4adzEi1LoEv ASNeJUM3dSjtJElsg0Kk LLKjP95lqETwf3Q0 IGNvbGxhcHNlOyBlbXB0 sC0jVKnvgbnud3joetkk Zwq1xn53eTZsm4R5lBF6 N6JqqhT0WAAxiRYk CxmqeOSLeT8xlgzys9wz mobsPgFwTKIjJUa9RKt3 QMXmdMhjHlEbSH05SGI1 EPZskiNrW0YlNQUj uXdhMkQ6f6K7Ex2OI6GE GsfsS6UDAXTERAibxPO+ OJ78qv51C9CgPtvsZiy5 DDIsMTO2kLS9lJ4m KAWxWDppy5V9dER1A6Iu qxNavh0ad9fuNPRbSWni X23qyWKmw5E1NPHmySA9 LQRuiGfpYcNovW38 Oyc+HPWdjYscz4DrWpde o3nvd3lhaLo1UaosDWVn kiYauAefAKP1c2LgBh7f ZDKldBB6pOV9pO5r AoKjAnT4JMtnI976GyOy kNJmBzduI21iW9TbfBS+ WAXkYmb2RICzoAzhON7g Z5NuSPXvkcmelZMq wMzvTM0cTKFhhzojLAVb iW8oWSPxO7e7YkMyZtR3 ECiuJ8LoEURxpgxySj79 tD3tHsKoPcH9PRfb V0ZyyeF3DODwkJLbVQtf BYG6M72oq1Z8VEZpHTYz KKY5iJI0oR9xrIjwiinw bGVmdDsgdmVydGlj EBrjZMvmQ451CCOscOma PkNvZGluZyBEYXRlOiAg MDQvMTEvMjAyNDwvdGQ+ WPVvCKX3wYtyIBFi tFJnLSjnLh5lkEikbXfp WK6iLYNlvlljPBIvjP9h UBLevFKipHrgMJ9gBZWu fpjao758KrEeMMC7 XRQapKZfS7LhcS8wViSz TSXrZYRfQ6PwcQGqAVyr P794JMewKuA2BZLvvhZi I5PeSVOzkYfnGmL9 e1C5Ji0Ob3JpaxhmV7Cr lSPoSxNzFwzjSTg0C5Cn PjwvdHI+FS37XHBpBJ86 MRy5ITI4cVtyENty TIBmX1BtuP2xNzFdZIQb ZGRkOyc+PHRhYmxlIHdp ZHRoPScxMDAlJyBzdHls MU8hZd1dUPVnWDDo mGlypXAcGbVfj6ckGNRo CEaaMG6ezWbtC7RrbUA8 TNLel4m0Dn18L88mI0Nu dXA+QCKypBT7tHA0 iO4vGmAfTwH1GNmhE469 OkNchXRmWtnas7bba9ss vVo8JfP5NFCupsElcUeu WCQ4v0GwJg86Y48c IHdpZHRoPSIxNSUiIHZh iCpmel3qpQ8pQy3+PGNv eAQ6aXV2mM8bRvDxKbR3 TNqjW266TbXykHAr Ezpnc6hbl5qmbWw1XfOj ALRkdvWoxMlkWTX1o1Rr Mf08G1HqpMjqj2RfHdv1 kv94zIWdm0D7lFU1 X2VyOITxbkuebPXglVhh JG4fIPUjhztqAPRtvB9f NXOlG5u3KdEdSaN3AXxk A5NgxeV6YQHlyZGk IQJhvKQFwK0vshbrv9kb rrxlZhMbJXSeSFi4MXg2 WTBcbZwdYzCfFHV6MhU5 PMG5jDEomQ2quBko gncgkS6nEvj+IJJ6oFPa iJOGNI5vEwoimKI+PHRk GKR6pYesQXxaQBZlxA7m LXRtR2f5BhCqBnD9 XYmjV0ThanD2SSIlgQAi JUPatYVQuO4dqrvxz4pk fixwDlBlUJTyYUt8JLa3 LWFsaWduOiBsZWZ0 EcR5VZD5uMXoxN0ywQdb ffqxiW8xPmg+QmlydGgg SCT8BYk2Z2PyCcs5EAVa hBdbBU6ctARbMXbx Gs6anXsjbIbpMF1uHNAx pyvus529CxBzi2etMRHb bPYsXVzmIXK1P34lq5T6 WTVdIDZnNJU7iMC0 nR6gkCxhzrbncKIygFdl drPchCrhWDahUFxcQ463 FQYsdMlePqFtDPb6N8Nt Low7OZKizPyrEL5i aLEuMTqaSc2xoMomlOev HQ1xODYwfxbop774TpQv j1taHUDicRSdMJliSVW7 O63vi2T7JPHwGTXz VWI7kFM2sP7baNbdjdfc bGVmdDsgdmVydGljYWwt FSrwZ603AFNvlAloCmSn eUq2U7QdOfa0TZYc eStmXO6wiTUfANohDb8d zLwclNfcUG3wLSHtpqkr l087WuAtu2pnXIPdlJBa SOhpFDW5H50az9I2 BHDxSKWdFOA2oKL6uT8q bGlnbjogbGVmdDsgdmVy bBpjKOoeOWhoE945CYCf cDsnPlBhdGllbnQg PZvwZGg0F1VgMilejER+ BH50YZWdGQ60tFDzeIHi x7hglIl8UzOpDRDwWIP6 oPuoXWirv9MhHSPa B36evZUdz3L0DTZiaEiv fLUiXkHspCO5sS0aCIhz ygqnh2kxekrsAosre3ei cw91mL47K00gACvo ZHRoPSIzMCUiIHZhbGln cm1ziL5vQr0+PGNvbCB3 eWH7tC2nYNPyAiH3DAzn C136HsKqxAHcQiaj j4gco8xjnDh5UeL5PVMu rcRhsCwnEOY7g9OcOj27 Z03xVVfsXFOqVDNzXYFn KMUctDswui1idP4v Ii8+APFvjCE9hXS1vM5x IwJaLsZ9AUpnQ315CaVt zUPxBhtgS11nZ5ZmdXS+ POOhYzw6JJDwuKfq VT1ubQTfRCmzBc2jKJV8 WlFtUoRiDMlvT9WwFLDk tvgsrpfnzWP6KTGhYJJj nP07Iu2lmSyeDTDj sCTYcD4whnvae5qrljvv PcQeGCJgTDt3DBh6OMHs lDrfCiFuSEF8AvD4JJO9 nJXaqQ5mtAqhxwab yC0zU9HtHGPbsrvsUq90 jC6dMyLtAeR0FMcmJpq+ Z3LVEayeCA7GB2nSKFlw SzwvdGQ+PHRkIHN0 jSmdSWcrXVNnaA8nPWGl Y8o5NnCoOeG8JDyuQ7Ru ZJVnzxakUj16bO9jMbGi SfP8KRxpL6DbltQ0 NPYuaKEaAIjdELF8Z69i t1O4YUSbWXHgWHJ2qAH9 gP0hfDjishkbiZBzxBdg dmVydGljYWwtYWxp V830EDNstLrtXmQcHbL3 DmM1DuA7F8VcJqk3IUJm oTmfBQ4ghCVjEMufHa4y fMffsZagYB2iHFPd kzdpRLCgdZ2wUAVcsNAh rUvuHM9dGXZapkuos338 CgFpBIY0LSZdgMSiM5Mu xF2tCzYxZHXiQFIs R0HgtNYxEGxpJ107QVbo OaY2DOJdvvVyE8OcDUDw gUdvXtQ5o5R0Qa02EMDA ZWFyczwvdGQ+PHRk TFH6nDnuBCqwHRNegI8h MDVaR8h3WmEwFoH5LBth V9SbLYCpehvjRd81rN0z FfKzSrB3NIkuV3Xb puQ8WMVerFVfXDswDGG9 A63il6C8UAHzEWAbTSX8 bQL1cO6qcGwffrbqgSNh dDsgdmVydGljYWwt TQccS807TVTjlCfbXu2X FCK1M1IlOza1TCFdnWlj OT7yfNIdOLopIq2doUum aBwpUH7bGWZxfvwh PKInvU2lRNNylXXkbXrf GJ0aGXDogncfd741WmKz PYY3CHSbxQElH9RpcY5h XtToFEPnVGUjF7Kn gXJvOSfqG001KUnxOcL0 WZLqnhViK6RwATDnuChs KlB7o4T9Wo6JOScedUX+ GH34at06A1GlGpzi Gpu3KBTgPZU9wYA7eO6w VUWkQAoyg4W2nZX1I7Hg lfVngc7js4lpLJWtOKim P77vqJVdo8X5DYHv oCT0UUWycVhfYpTunS57 Oyc+KALrxIqdh5MiYkvf m6xqz0iexXf7YkZmFXEp djYweKogEOS7f1Db Mq51Y99uLIobFQYiTEUm AGUsXNFzwUzuxd1odH5d Ii8+VTPpbPC6pPA5yZ9j KmYxPsH7FTegP722 FyVsfQDcHkbbf4dmn5xl nTb2OxVsZWEwdpHliTsg AAL3a5DvGu14P6YrmDgw t5RsYoy0jl53eOXi i8Q3mDC2N8TmFJArfqlg lTGeuBobRI0oMQQpdcle OIQihB7fEYDmG7n1PzSn VpR2IAyrY7HdptE0 QSXumEIcOTUvhSODeK6j ogciw5wcycavYvTrIIFf PIx3CCx6UVUjpPhwQvZt CZX3RnW5OQO4cEXs kJ7zvErhidrmoB0xPms+ EAx2t7qbcESkKD4mwXG6 NG39DK37gRCkr5N4gDZ5 K7EcVEOqklauaalz zTN9GRJrKGVddX80Kw9f bQcrGg2eLIIfVJF6BKWc nDVaG5PqnC7lBeIjBIYf GLFxG2WsnSJeAAbm B493YNbbXeY7XVYsbjVd E5XcQGBnkJlxQnM3w8K0 Zc4KHY78CU07FI20wQNm c4L4iUF5U9TqLBDa drorsltrnLB8WQIxAMVe nA84Qi5rpGfqPf8fQVKp FJQ1ZSNswAUzM3HpvF9s EiWiVFSyWRInK4Hh hAMsKQvkD908RFrvLlJ1 QQYdbiHaF0VqEKFcuVyf WtZ7s2J2Rp8LRz70MH40 BU29lWGtj8P6sQS5 M8TiTWFohguesbhwyDQ9 RRNiORFqsI89Id0kaFxb Fo0wXRJxRQZ1JLVrdIVl R8FunT2dQtGrYKGm EVRpN5QekHHaMVdoM130 SPwnVjA6XMXwafDfA5Lq AEEdbMdmGjL9v5L9Jp5U JFetupc1J4TnXoew dHI+ZI93UJPyZH19oUZg kDXop4qzvYf6JaKnHYSq OOZ7iLsxOApzk1EoHXKr V57ghERcb7H1KWCt bGx (more content not included)... [facility] Coding Summary HTMLBase 64 InrqacpvTEu9aLm+PGhl YWQ+NW9YKUMjP21paJTi zQ8xG6BAQOfPHqbbVRKB KQvNUqUihkCeEU3ccIEg ZXJu IC8+IU9xFVHsIltpdXVf i1P3yVW4N83sje9rJXzn cJE1ZQBbEbVqzlvbs6qy nKg0XNhxRbycYyOc XCNqoE77VUI2xP82Rz85 rTOfmNThb3hxhZn1GsOf VRTaGXE1pJbmZMlca7St GGCqO80tvBMsn3T2 IGNvbGxhcHNlOyBlbXB0 aW7tFVkhraako9gjwbyh Oat3rf05iDQlt8D0rGH9 Z9BdyfM5RIFmiDBt VadzlWPFeO6pzzkoj6uz wgezTeSmGDEcUZc4WOc1 MYQhiVkdYjZlZJ28RGP0 FWYdeeDkQ2ZfFTZo nBxsLfV3u2S2Ws7DU0DT TbzhL0JLWIXREGqabVL+ XR35ek10Q4ZcHyrtGpt2 VKFtDJR9sHF7hI3e PVNyHEmjn7U2mQB3V9Jr paZbcw7om5thJLQiDKmr E89faBJpk3A0TTRqaNG5 NHJzhPraWjPgnC90 Oyc+WZQhdPjyx9VfOwov d4zke8wmhFs3KskgWOMx zaVwuLfbGMF9k5YqNd7r AWTkhDT7rBL4sQ7l LwIyWdH2QBwqK306NuBk fREwRptyO13hU1JulMK+ EXPsVit0VADckPhdNS1c T7IoAXWnrhxomIDi hAseMV6rQZFznnbeDIFq aU4jLLWfC5s3TuDbYzO6 UTlkM6PfHUUnybmoCy97 yP2kMsVeLhY7SNvg I0EgnbV0KFIiwAXzNJce ITR5F70gd0C6IOOoEHOx ECI6nEQ2lZ7epFyycydd bGVmdDsgdmVydGlj OPvnSKtaM405EACupIbs PkNvZGluZyBEYXRlOiAg MDQvMTEvMjAyNDwvdGQ+ XBCpDTG4fExaLGKj lBOuRLxvJw6yoEthnSbq XQ9zWYKizppqNSIprH9y CTUcxCBpmDgjVE6cDNCm hnmso537LhVzBDF8 PYRmiHDyK5HwbY1wKzYm XLToMFAtZ6PmzRSoHRkv O915MNsqSeH2LQHgezAv F0PiREHzpChnXyV5 d1N1Dc7It6LjllltX2Tx mTGjXiQtMsplGMv7Z8Rg PjwvdHI+SK28KCPbOX42 LVh7BLO8eWjcBDuz EODsY8NvaF5tDhSkKMUd ZGRkOyc+PHRhYmxlIHdp ZHRoPScxMDAlJyBzdHls FS4nFh7zHEGyIVDb iRqhdQErKpGim3mkPZFg RQmwSK9bhIesT3BlqGP4 LZVpr5w9Fz34P23oV3Tl dXA+FLTqnFX2hEE6 jY3tMgDnMkA8NZyuU008 QbGupQLmRoxry1mmp5su lRd8JhD1AJKhmlXotDwy XAT3p2YfVc10Q14t IHdpZHRoPSIxNSUiIHZh sPzjja0wlZ7pOb8+PGNv oGF8bPB2tG2hAaXvZtQ6 PEudB362BfZrdIZy Zsbzd6yew3dtdTe9BrUq ZSYidxMjgGtxRSX2u8Na Bz32F3YkhTsvd1OaUcv5 kz09oTYit8N1aDB4 G1OaXKTjpbftuSAfbQjr PW2jOJYshylrRRTafB2x RAIdY0z4CdEyEaY6IAsh F0RlzmO6QMXgwGDk OYYioVOVsC6vyaxko8vq vqhcXyExQMXiDTd7CKi8 QLOsxUzgZxImGWN4AhE7 DBN1vVGdaM1jdUjq ggrjjP9nInx+CUO3mRLs qVNJMA0bUqeezZR+PHRk XRX3sLjbVQocHKUsnX3a DQDzB9t5YzLgFlK6 VHlpD0AgnrO4FCUvsEGf CILkfRJFlE4tpiniy5pe ntzgTxOvTQXmAIq6ELr6 LWFsaWduOiBsZWZ0 YzS5LPC1tDOohY3bfQjv pxdnjD8xAht+QmlydGgg WUQ0BZu7V9ZeQdy1WPWb wVugRI0uuOSrNFbh Kt7lnSldgOixXE1cWTJs snsmv538SuVzm3heSRQe gBAyCOxrYPV9G23rk6K9 AJWrNZJqRIB4jWN5 qG2ypNlzmaiofODzkOuv utXfwVfnOCswLOzqN539 YBTdeAcvAfRaVJv9X7Kt Lhe0ESAfmWneCO1d dJJhKXpiVi0siVrhjQul LR4wVNQorygcg227RjAd j2sjDKXdrJSaTAfzGQJ2 L48sz6Z8BNEbSKAm GTQ1yXE1wD9qfFgvndls bGVmdDsgdmVydGljYWwt CObfP745SLTctEkbRyXn wMg4C4TlSgl4AHQi aJbpZX3shPFvZEysFb4f mFhvpHjkTU3aZMKyuwxy p236GdBxx5luOBGllUHg PYyyMBQ8G13pq0R9 BHDnIKRcIGL3bPQ6qO2o bGlnbjogbGVmdDsgdmVy jAboJNecKVfeQ108LIDq cDsnPlBhdGllbnQg BDheGUw4I9BhPfuhzFN+ GL93VICjSE63fTZmhIKn n5pkgNt9YgRrWEDfVRQ6 zUddBOlpy9KhLEHv I23bbBXjz3L1RLFcwVrs nBWzQdRxdJZ7jL8cDLdl pyvyb8uebnaqQlkrr1ob at91vD80D83tPDng ZHRoPSIzMCUiIHZhbGln cn3weT2kAr1+PGNvbCB3 iMC9sB1oQXFuXdK8NTfx G543KrXasZImZxyh s0ptd3pyuRa3HlC7JCYl vvQjvDkyCFF4b3UjGk30 J46zFCefEMDhKCZlSEMi VHPbqTvixn8upY1f Ii8+VIAafRX9zQB9aC5g ZkFyOfV1YYrcK056EcTr bDByBnhjW05jL1EyyWC+ FGNaOom7ZONrtVpo CA0hfOAwMMofNq1sHEH2 KgUeJiQkDDncW3TlAATu fximawwsaKY1SLGgHOWh yS04No4qsWosLAYo dCQWhG3haxrec6yjolfg MaWtTLNsREp1CFk7UHQg zDspDuWySCI6SrF8ERW9 wKIflM9rwBaysdww iY7dJ6NeMODxjxwaVe11 tX7oIgWnIeS4YHpcRtb+ B1GPIndsPC7QB1eWBDrd SzwvdGQ+PHRkIHN0 uWjhXRhiNPNutA2eWGNq T4b6MfHqIsX8OQvxK3Ip EGFvvwcrRm49eN9eZvSv KzF7WNetW9XvmfT7 RBXjcBJoAJkfCSJ6R51u r7O5FRZaAKAaKPY1jHK6 xD3ewPloyskpjOVwbRoo dmVydGljYWwtYWxp T485ZPYsyVisHzAuGaM2 SpU1RpC7R1GhZmx0MXKf uLlsUJ9ngYSuWXrqJx0k bHydrUvhTL5fSVMv ztvaFKXluY3tILHiuQNd rHhqDF6zRUOsmzupq204 SfXeVRP7ZKQbnNDuD1Ot gQ9hFsExWNSqFBEg C0KqyGZqRIttI878SEdv KiO7FUJyokUmL0ZzLDTs dMuaBoR6r3S3Sh57ASTH ZWFyczwvdGQ+PHRk SED0pNvpVAubJTYerV9w RJBtO9w5EgPjLuG0GRnr H9CpXOWeeiheIa02eK3g XtXhNpV1RTwgZ6Ca hfH9JNOneLBgKCzyKTW1 D50uo2G0ERItWSLjZLU9 uTM3qS8ksQmytadhlUYg dDsgdmVydGljYWwt ULuzY343PYMruYgcVk3L KDW1K7QzAot0XLZzqXey WR7iyPKsMQvkQf9auXws aPkqNQ0dQTDuvolq DEEcuF0tVXLjsEFedIdh JY5fJZKeiwjny519ViVk HHM7SSZtyTJtE1UcxH0r AgMeDRCsRMKnY9Dv sNTuVUcvL888CRwzPiJ2 NXGduxNnY1KtVJThaJtk IuO1d6J4Gy7ASGxfnWE+ XZ49gl33E1BbSjwu Coj7BVGqECW5xNI6xG7f YCGlROlef1N3cKZ3Y4Re vkJrcw8gl7fkHLPyZHnd C01kmTZpx0S3PQQg sYB8LCDxeNuoQmXwuD41 Oyc+IFBzoSoio1AuYfbb h5txy8vubRq3SdDcDXVr mhPwySleBNH3i1Mi Jw35S10pIYcxGLUmOSAp VJLjMTJjjGycls6akP1i Ii8+HCCcdRH7bRT6zN2n VnAjSpK7XWptL669 KyWajSIoNyozc6sqb6xv qNr5LuWyZJQkzzExgSml FVI9s4KdPu32N2AdpJli a7FcQtk7ek45kITr m9L6fXG0H2PeYJUrtjlg oXXcyJtsBQ9hNXZjxydw UYDadP7wGLBjD8b7OqCo RpR3JNycF8XutoF4 UNPnrYJgFVKlzPRUhH7d beagm0aqgciuMiRnDFMq AVu1MKp9GEThzGkcUcHe OFJ8HrM8TWD4hSAx oL2buAnokixlqN0zSyd+ ZSg2z4fpeOHkBK8fwQB5 EM78RN89nOOxd0F8lKC9 W1AsGDTuxikmkinp kFA2ZJWfUSKtrX48Yv9t sCdlQb6pXXQoHFD1LYRt yBGuM5BduV0dMuZvLLMt FTGmO5VbzULtNBjr H399CDuzVxC9EQOnpeTh J6RaNSBafAzwNbL4p6S8 Nd3TKO37ME39OB44fVFl r8W6uPK2W4RfWUXk iepkizinbUR7YXBzRHAa jE85Qp3rlMspAe7qJCZk KVH1ANIhcVRsQ4CtyS4a JaFqYXZzAACoN4Vu oCAbVGmwJ399FPnmIlT0 PYBbsrRuW2EeYGVpgMzg RiE9o3X7Dq0OPo95ZP02 BC13zGVla9Y7xOX0 Q5HkNLXtcwuwhrakdUI3 ALPpGZYtgU20Vn9siUej En2lIPSaCHH6FWIteLEy J0ZnwJ9jNlZuIRIi PRJrS2CkcSSqJDuaP215 XYdgMhC6BQXeytBuX2Mw NRZijNxhWsT7r8U7Hi6J YPaglbo2Q6LyZqjj dHI+ZH11CLDjXU40eCVl nBMws7sokYb4JxJeRYKn GCE1eAhjPTbzi0VqUELq A42eiGMnh0Z5FFVb bGx (more content not included)... [facility] W[facility] Care Noteon 08-12-2023 Wound Care Note [id number]# 1.[facility] 08-05-[facility]23 Wound Care Note [id number][facility] Summary HTMLBase 64 AxrkjucfVDo1yNr+PGhl YWQ+GP6CPKEuB55gfMCu wT6bX0EKFZwWWvjtIYQI EDmRRqWtwlIeMM6zqQAd ZXJu IC8+LL2jCUFwYosvwHWa h5B0zTX8E71nzo5pUFoq iJX8VOOcSjQfvhsey2vu rEk1MMpwEwutYfHh DPCowC73FUH7oG58Sh18 fMGuiQUws0fyeFm4CrTi LOXqARM8wVvlOLgwu7Wn XLSaI70myEErz1R7 IGNvbGxhcHNlOyBlbXB0 eH3rAAvjmalew2ajijrk Mse6uo58nBFnd2F8pPJ6 W2EgcqF3GGHbmJFh VamniEQLpF0fickdy4dk myshYzJfRELjQVg2QQv9 WLLcdFtyNgCbUE06QOS5 KKXkloSlY7MiWVIh oFinGtI4x5C1Ia0PV8AP GlvwP7VXDVDMZHlvlUK+ JR19wx93N6IdNwmaGyl0 ZKMsDYS1tNL8vK0e FGTdZVmmn3G1zBR8G6Yy stIhxd0yg5quDFFoSZsr A42hpYMlv6V3LFIlgFD7 SMClvNrfHmAeqE68 Oyc+IOParNpjl0KcLoew i6pwx1cilAj5MxoiOGDp jmCyqPvzJSV1b3WlZg2a QCHyqRA9pBA6aQ1q OnDcPwV9VKdpY111EmWn cBMxHrapG21cZ1JnnOC+ ECRcRhl8JHKidDthGV5p Q9CuLPJhkjtqbYNo rVilQI5rKWEkiklyICIo tT6iKCHlU5h1ZvBsFtN4 FGhlM5OjEYLwrnlvYc05 eD8uKnMhTfK7PHqb I0FuasI0KWGzxEAqARaf PRL2H72kr4P2KJXoMZMl IWA2lNR6eE3biAgrrcaf bGVmdDsgdmVydGlj ZEmmVDbcU426KBTmxNwl PkNvZGluZyBEYXRlOiAg MDMvMjYvMjAyNDwvdGQ+ MWQrVGI6bJdjEXBu uCKsXNquBj0blWirfGqi DL6eGOFcjwmcUCYieS8e IYSmeGCsmCrlFQ6zITLe ahhix813LsUeIOD8 PPBdbFKaK1PdqU7mGoLp XRPqOAQwX3FdxKJdSYbd H877KFzuUcM8PNGjcoZg F0XwEFUuyZmkLaI6 s2U7Yu4In7CgzufhB8Me aTBeIjNlNdugBHb8S5Nq PjwvdHI+YL54UEToEQ22 SSt2JEM0yDrsJCwx YXEzQ7MtbH4mJrQsNDDo ZGRkOyc+PHRhYmxlIHdp ZHRoPScxMDAlJyBzdHls BW1kVg8kOAYuNYVe zAckaTAsQcWgs5zuQEBz HJteTL4coHdaA2ZlrBJ3 WGCmg2d1Gs40O04tE2Ky dXA+GWXfbLS4uIQ8 fW0xTmOwLsO1QAmnC354 HzIplUDcPfxnp8lok6yc eGu5OcR1JPTbnfDvfWyx JUB1i7FyZh64Q13l IHdpZHRoPSIxNSUiIHZh cIxvls9rgC0sBb7+PGNv tLJ7mHQ6dQ9kPzEvVnV3 NTepQ068OeRulCBo Zjiup0sdr7cwrLk8GgLo TZUjjnBvhMpxWCD6n4Ai Dg46G3MyjAjyv2RgFni4 tb50aLGqo6H6eBC8 Q0WoKMBnwwtbwGZyuTbe XN3hGHHatmbqAOGrkL8f EBPvF9l5ZmJnWwX3BOkn Y8OlwdT3PWBdlRPe KEHudPTYjP5odlgeg3ze pcvtZyOyLJYlMWu1WLh1 AOQgdPgzTcNwECR5HlE2 FJO9uCTkbF4ayKvm ycwcqD9wQua+DAQ2wLGq qIPSTK1lHgfcfAN+PHRk GMU3xJxhRGdcDRAfqG8j NHIlB2m6WyEiMrH8 FXunT2LuotZ6EACltWXz HCEngBINjY3ctnusa5zw fxoxXnHiUHVmWOx8CSg2 LWFsaWduOiBsZWZ0 ZuR6GKH1zMHgsL1raUsz mrfctN1mNjj+QmlydGgg UZR6CKz6M6MgOgs4WZOo dHowMS2dgIHyRQft Hx3lxOcqhTztXI1pAYBn fseue082LqUpi8kxDUOd nWFiDJwsEXS1S74pp7Q3 OCMgDOHfKSH8gLL4 dE7rzIroykwmdSSteIsn owXoiMupDVczNJqjH017 ADHkxVdnFpCuKLs6X6Pc Ruu6DKEzqZxfQS2i pGUsVPhhDb6cjSdxbNyn QO1fOXWheyutw492EnYs j1stLDAekFYnPGaoBRH4 D79hx7J7VRQoRWLf GZB7yMQ5mB3emEvwtzgq bGVmdDsgdmVydGljYWwt GCyqU629URAciRnjXiOz yPe8C0VbBag8DNVe zYyqDR0waKAjSXmeCb8l qLakuBbuAC1hSKXbpbyb p721SbGgb3fjHPPtaIYe HWljGUD8Z78lg0G7 HQJfMWEcSMA2cJZ2iP0r bGlnbjogbGVmdDsgdmVy iTmtDSudUNooY535QVBa cDsnPlBhdGllbnQg AKhqLNr0G7XsEwoexIA+ FZ24ILBhQL38mFOcjURd a1crgGi1KwKbICKfTAF4 nTvyEJaon0MkPLNd F49dcINwl5L7CGPbmNop tCCjIsVirVL7vH8qLGzj rpxia0mgbupsZthxp1lv kq84yQ97P11cUKsy ZHRoPSIzMCUiIHZhbGln sc2pbU2cMz2+PGNvbCB3 tFN9pO1tNOElPeR5YVmk H820DuKrmWCdIecq a7oyb8cgzIm4KdQ1ZEYi izFzyPrrAVA5w6HyAg72 B73mNSkdCIInUOLmDUDy THSwiFouab1pxZ8i Ii8+TOUzoRZ9dSX6sH7z HuCkNjU3BMdkP247IhRw bOAsFuivT12vY5KfbGO+ VLToAhi6GKAicEdj EC1msWJpMSpsQg6fSUL5 SjSwNeNoJJigA8ImPXDp nfxqmlviqTB9PFFuJUSe uD66Xo1evGzvQUEc kSWPrF6mkilqn7doilol HcJdGGDzWZo0NPa0SIVm kTukCtLjTXO1DvP8EZG3 sYIksH3coQkktezi gE3sZ4MoQUEeybvfLi32 lH9zSjDjNxZ3ENnyEcv+ V1QBWuubHO1OP7dQJWxf SzwvdGQ+PHRkIHN0 wLenGXjmJSCqfZ8wXYTl E7f7JcDaEfD6OWjeM5Rn YTRlauddNe49uA0nWxUb YtL7LVfvE3ZnggD3 RJZjdZTiDQqbTXV0K81f p0T1HPLuKAEcWMS7fCO9 pD4wsYfpthlwwGJhiNyk dmVydGljYWwtYWxp J605LKOzzVslLkTcQdU3 NiE4NkT1P8XwTbz7WHWs yGdzMR5laAByBJbqSx8o vTrkzLdiHY3hQYWu nrjuHJCgpX1iGUExhGHv aMuyDF0hAXZlbuguq755 LbNhSZN1RGNtaBLeG8Cz oA2uFdXlBDKcWVXf V0KvaZNvOHzgX266AHja RzQ3CCHufdUcI6PhWYMg jGmeRaB4v1B1Hk46MCKI ZWFyczwvdGQ+PHRk OQW7hUhxBZcdJESppS1f JVJfC2d5NfSnUpV6KCwt I3PpGVBbgijuOu49rD4j WuUjImD2TRtrD5Hs gwW9PTNuiYPyQMmbONF1 V42hc9E6DBFcHBLoREK3 mKA9iH8yjDmqjivdlKHr dDsgdmVydGljYWwt PItyQ886MAUtcSkcBu0D KRG6I5BmCsq2FFIigFww QG1eeAMuAJqxYj6fbKhu nXbxUY7gNZOdrypp HFLagS5lZYHkrHCdlOys YX5zJAXztybvl377IiTy DIJ9FDMmwFBrN1PveQ5e BbNjAAXuJAWhJ4Hv tUFrDRtnQ354QMdvSuE2 SRZrtrPcM9WtBCIfpWui OtT8m9U7Im9APGxkpNQ+ BN83di64Q5UhBuat Pnz4APEqHSI8fWI2aI7h MRHbUHxjf0R5cRC8T5Hi dxWgiw2to2cfTTPyKTao K11xzJQbx9F6VEBq yDJ2ZTKbkRyeGpLgmB80 Oyc+SQLdkNxkz1TjPlsz i6hfe3rfvFu2XcIgGZLe buMrxAtiJCX6m1Ke Ld94D42rVRjzLEPjBWZu BNDwROEkjQpsto4kxZ6d Ii8+SMZyzOA5qBI3qF1s CrHoMoJ1VPtfW712 BhEscKYrNdamg8unm7ng wLw8SyYmCGVhwaAvfUam GIK4w1HpNs96K8IciIhx e2QqBfz5hc94qTSl i3E8uVH4V7IoMOLtixnd uJSmoUnuTM7wSXLmtexo MGYfrN2wPBFxD4y8YtWv LbA7QMdgH1OlzoF0 UARtiRVhBRAoyFOGrB2n chdgb7xhkizaXiKvWGVm HGp9CKo5TJLbpXnwVrIp XSG0HbX4TGK7cGZo xW2nlNawpxuggD1tQvd+ KNq7v1orqYQpVA8phJD1 SA84KT12hVLxm9K0eFJ7 H4ViWRBksuedzefe rQM3EZMyAQLpaR05Oh7q rSdtUv3vKJCiDCB7BVWl iDCkV7MhvX5lQvHxUYBv ZWSzX9GtjVUqZQvn L446SQivNdC6PLVllzFd N9FaDFZchKgwWuH0n6G6 Ub1CRF99QB92ZL12hGVe q1W7bBI4B7ZdLWJx sfjeqbpamYA1OUVdJDKx yZ61Uf5iqOqaOx1vEEGw OQU2UCHwtZSnZ4ForJ3t WtGoICLwAHUxQ0Zp lIVeATgnE425FYafBrT8 LJZjzvHuD6McFIUirOye ZaX7h2X1Hy2MMe88VT13 RR53wWQfh6I3iFQ3 N2UmDWIkvsoebiovzNZ5 KZZeQAJhjA17Ka4tsUol Om7gAVNdOHQ7SUBsyIXp P9YohM6gDmXzCVEx LNPmJ9VvyQFmETuwV944 RPvbYyZ6VURxlqYjP5Yi YKJtgXbkGfY7m5I8No2D MGmzuqy4L0TgDzfa dHI+WB23XSJtKL89aETh hYEky7emdPu1DnFxYRKc WPU4fQfaWSglk4WhPDIc C49cdUTwb4L9ZTDw bGx (more content not included)... [facility] Coding Summary HTMLBase 64 BvgrfnrdBXd5kQo+PGhl YWQ+WE5CEDPeQ81yuLJe gC9sG0LPUOvKQomgWEHL EUyTGlUstlAmQV5urCAp ZXJu IC8+FN7gABIbBppxhSDf f0Z5aAA7T82aro2xVYxa fMR4BALvTnBmhwtcr8sr bGb9QDmsKoyfExTy XUJerD86TNR8dU23Go54 rAVfeQUyc2vrvCn9TkCk YJDzOEA5sIppDTxuy5Ke YHEqT14yvZRpf1T7 IGNvbGxhcHNlOyBlbXB0 aT9sUNayssmly2kpgqpt Ptm7ja55jSYsq6G3eWW9 D7JujuW1OVGcgMXj IrwkxNDGuC3hnjflp6vd jlyiRpIwUAJvLRy8YVm4 PLRdsPlwWwXrCJ66LYV1 WOUymrChK2JqYSDq tEwtPnQ6n4J1Qf1YF3MA JzvuA6FNHNYHCIpjzZT+ QT87wa75W4QsMybeIqp3 IKAzICS9bRI2vP2v CSPxVHjwi8Y5sDU2D1Zs ziYxws3jp2iySRGqUWfl Y81pwUCyi5B4OKTapPT4 JKShrShcVyBuwY61 Oyc+OTJzvCjyf7VaModd b3fau9pnrAs6ArcsBVLx chPisBndMLK6r7CzLb3t XDKsnNK9yQO6iS9c BlXlDbJ4YHcmG207HnVj aSIvFpgdO52uT4WhfID+ LILsRvk7YABfbCroNY1e E8WiDKAkgrczxXSc iCwoAM6tLMPlqnmvTQVh xX5nWCWoY2s1YrMfJrB4 TJlmA4HoVOTycnplTi26 hW7bMaNyZoM7UVxz D9PnslE8EEWhrHBiGJpt ILT0V83kd1K9FTLgRSYu JNG0mHQ5qS4eyWzttkfr bGVmdDsgdmVydGlj DVwcPYqkP237TUVzgCam PkNvZGluZyBEYXRlOiAg MDMvMjYvMjAyNDwvdGQ+ VTJdOJI4vCjcIHAq gVHxKZbpQw4orOuvtWqy BI5qKQLdzuguQEWkmD7n LZHmcTNhbSejST9jRYFf ayvfs966NkPrLPE4 NMAuwVBkS8BwkZ5eHvTy BPLeVLIhY6KezYZyXNau G314YLvtXwS2CZDghqDw M0AsRWMgwJdhLjA9 h0Z2Zk5Zm6CkoutjL4Vg dNGhEtBhKkqaQZw2X9Ev PjwvdHI+MB10KFKeZU24 FUo7XZN4tNmoKTbj EAHkC5FpoL5yQdCbUFZv ZGRkOyc+PHRhYmxlIHdp ZHRoPScxMDAlJyBzdHls CR6hTv4mXTXwHYLj xKcliWLwGqTru4nbIVVe EToySD7jzApcA6FacIX1 ELRpy1w6Kn50J78uO8Ev dXA+YVAvwID7zJD4 yI3tOaNkDaI1LAqfG601 GeFssSHwLfcht0mkv8vh fGn6SnH7IXUkszLuuUza GBL2e8AlPl11E69y IHdpZHRoPSIxNSUiIHZh uRjqzr5wpG8cZn3+PGNv mET8uQP1hW7gPzGnRuV5 GZwuQ228OeKzlVOq Xuwdo0mty8fgpUw0GlCr SDHrhvWdaTrmUKC0h0Xz Ol69V0CneDthc2EgMhj6 bw30fNCwc6A8nPL7 N3LtEZOjbkckhPVjoBjj AT8rXBZlqgbgLUMdrA3e KNXmQ1m0QlKoLgH4NVrk B7LbufU3GAFteVPl DILraMOGuP7gzpuvn7ru lhnyKgTbPSNeTPl3ZWa1 BTHblOteHyXjZHP2HyB3 MZV3zJVbsF0xlCdm rozxeD3fWgu+JJF0tXQg rGIQEL1xXfbdzOX+PHRk CMN4gQvlEKcuSYXvfY4g IHClP7u9RtIsHmW5 QMrdU6TlmoC9YORhtKWa ULMxiUKSaH8fjbjwl8af obiqXzTbDGTxFCy4QZz7 LWFsaWduOiBsZWZ0 BgN7VJD4sSSinH8ohYhr ttifkD8iLmw+QmlydGgg AVH4PUz2X2TgJzq2RYAn lQbpEI2meGFaZEyh Gs6wnXxolChxUG1dBWWh kehsf746NiWcf8haMYXc bFIeENunOUE0Y53pc0B1 ECFvQGDtQUB0bNK5 hI8ibAijhybkyMNpyGtj tqLihTopARvwYSrfW579 MZAdnMyxIfWfPRm9B8Dl Sdx8WZJmpFanFC3p iZNgYYcvOt8oeDhorLkk OW3cVADfitxvt307KcLv u4rhQAXdfIScQOzqHQB7 S57ji3I8ASRbRAEg QUK5pVT5hE4rfZajpsoj bGVmdDsgdmVydGljYWwt FMigO214TFWvfPiaBiGw nKx5Q9MkBdc9WJZx oJmtFG8deCUyVViaFt4f tZpizRuyDX8qTRXsghjh a617YkWbt0wkZLBxyFIc QTnuIVW4Y36be1H1 JVYaUCEbGIR8dON4kC0t bGlnbjogbGVmdDsgdmVy nBgrXIbaDAilR425LOHr cDsnPlBhdGllbnQg LRwlQXo3G9MuKxyfcIX+ FR05EWOqKL25aYVfyUOu v8ygrWc1UmXqOWMyVGP5 lDagUZoab1ZiEJNn O84nuTPtl5R6JXYjrWsu uQElWcNzsYB5yL9pNZrf neivw1aqgdesQwgtm2ck by01oP09B83eYIed ZHRoPSIzMCUiIHZhbGln ql6kgZ4sKp4+PGNvbCB3 tTI2xM3tVNVnCnC4IBol F459ZdWpcWGhMeea p0iie6eqiJn0VwL0RUFu quIwgPglFER1d2PzUp98 O83rNAvhNNHrZPIfPMBu GKUyzQlnuw9shT2u Ii8+LCMrzWL0nXR7mD4o OaFgYeG4QCadF335DwIq yPIaZtsgG50vM7MhvVJ+ VPLkKdz3JQGeySbh KJ1dkPDdBClyWn2wZNF8 WaDzQcPxKFfdW6WmLAYi cypsxlhguBS4TRLiPQTp iO51Dr8sxXnhNFDp fJXWjZ0ahtbzg1jegngx VvGsQEWsKMk4ILu7GOMq tZhoAkJrZAF7XgQ7AGV2 rISwgX2oeYrpljgc eQ4fU3SrUQJtlgegOg45 xM7aIyOvElB9QQcoPdf+ G0ZQXlyjED6JF8xJDEic SzwvdGQ+PHRkIHN0 gBgoLOnzUBWotD4eSMVl H1n9IiOpCcO0RIbvO7Hn AKFyhykdGl22oF5vGqVv BkB4JWobH3HfnvG8 VAOacZDmAHsqIGB3J78e e0L6AAGyIIXjUWE3mPM2 iT7uqMpmoedzhPVqgBqi dmVydGljYWwtYWxp A856KKXspDozDtAiUtN9 BpH5IyY2L9ScEvd7FKUl dQvsJF1gjXAjNVhlJi4m tMixvPfkMB4iZNKo fmbiUIMsmU4jDHYzyRIx sNbzWJ0tKXJiulirb276 LrStMEF2BFTlvFYvU0As mK9eKpNfQSJjEAUt U2FmvTAeXCulO936CJsr KxB6AXNgkvIvK5TlXJZg tEenCtQ8u2G6Zq45CJSX ZWFyczwvdGQ+PHRk ZYS6gGsiUEogSUHjgR5m XPWuD9b6ZxTzBcY0GKjd D6VzEZHktkqkLc83xL4f EnTgIzW4FHbdZ8Ym ulH6FIEntPFmTFkyCVQ3 Q72yb7P9AEBkUYKdJTY0 yNT3vD3zaHvmvqglmSIq dDsgdmVydGljYWwt UGsrC705AIDijOwcLf5V EDA4V5TnYud7JMLpoVbr JS6gqQJbAXsqZp6ooCzn sVhhFM0mRCUtlidu WJHfwH3iALUoqLGzjTsu XF7iFOJzjfhav155UgBx AUA9MYHdwKNsD4MwyO3g XiVfANBcNPLpZ9Ho qDXhIAzoX568UMuuTyX6 SHIvdoCzJ6GdPGWyhAwe NlN1g1U6Ko6DYYeajLB+ UA16ox55E6OtEvob Xyh2DCXdDPK4jZR1iE0e QOQlBTayo2C5sFJ7H9Xb itUqgx8nm7lqZRTjHZfn Z60mnRSus3M3UBKw mYU9BZAioWxoXtQkgV47 Oyc+OIGdrKywn4EfJbkh x2zpy4putNe7YjUiSNWy drUbxCgaJYT0j5Ug Ar39D23gGBlnEWSiFVUc TAKyODYgmJtzdm2jmT7h Ii8+RKNelSY5pPL6lI8l EhSwHdY5AVkuT719 YmHpmQQtFubuh2fej6wi iBe0KpPgTWMqwmOgaJds PRN1v2OeDw21Z8NemMuo u9DuIxv5xf41cPJw y9Z9eUK5C5CgWZHjzslt nDBqwRixZK9tLMMhweog ATQmeB6aYUGhD4b6EeHg HeV4LEfoL5OurzT2 VNZiwYFdAOAodZRReV9c demtf4yktdcbFxJcIGWu LKn9DHk3KNSoiOwvRgQu FNY6IhK3IWS2pDDv oV5kgTzjxevoqR8lFtg+ HZc5q7kaeBWsBB3swJH4 NJ19PH11vSXpx9G2mCE4 Z3SbVGTufmzmiqdj eZK1APSqVDQjtE92Lr5s cLviXg4kJXDkOKU6AGTx oJMqE0WsuB3qZfVbDBYz VAKjZ7MlyHVuRAtv H358ODcdSkH3AZZnwgOc M4MdRPZaoMhhUdP6t6E8 Wk7DQT03AQ54QM82zYGx p3R3rXS3Z7WcCLDv cvpjqqzecEE9EEMtSBXa pB48Te9hdLmlFb5tGGJj UMF5NZIidZMzN8AnkN2p UpOqXBAhSDEnX1Hb mHWzWDzrQ111GGutHmV9 ZBTfjzPsK7JwWHFssRdn EfR4l7O8Nb9XZp65WJ89 ZN20qYPdj8C0cIM3 R9JtUIXrmgfsbcnxdLI5 ROOoRUPqxA63El5ytMkk Ii5zOXOyYLQ2GMNxnEVo O1QahB3zQvEkKDDg FNGyI2HlcUIiHZifJ612 DRkgPxZ6XOYflbKwU1Sj UKLonJfiKzB4e0Y9Kq6Z OFiprwl6O4ZfZkdc dHI+ZG79YRKwIZ35iLTr fDBtb1sxzIo9QwPsKYSt IQN6rLqcEIelb7NsAKIh P45huDMjn8D4QDHh bGx (more content not included)... [facility] Coding Summaryon 07-29-2023 Coding Summary HTMLBase 64 KgwttechATo6vGl+PGhl YWQ+EF6IIVJzO81rhITt bR2vF4HILVrANseeLTTD UFfTKtQhzyOiNK4frIWf ZXJu IC8+GC1nFVIaTchlwJOs c3K9dJS2G16evv5rZXyy wIX6PRBxQsGoojdqg2cm oHs3QUpeSgdaVtAd OTRmlA03OGC1mF95Jc11 oERvbDXop6htaLs0OwWv UJIxMUC5gRpgVVjzi5Vz AENuQ56kgHDsb7B3 IGNvbGxhcHNlOyBlbXB0 tU4dBMdufsrgw5cxxigs Mke0vw74yVCfw9Z0bBK7 U7CidsP2SXFsbIRq VcrswLMRqU7mmdtnt4nn czalCbPxBWLrBLc6DGx9 DUPkxKlbFkMmTQ34CPN6 RGLgzjTbR7PtDCAa dLujRhA8l0C9Lw6NY5EX JtdhI5ITLDEVKHxrbPR+ AH26fb70Q5LmHuqbGcc3 CSDaYTK9fCQ6wO3r PWYnLIbyw2T4wFR2L2Mn gbSiov8bh0cwTCAgVJtw Y49cgJZxz4C8YCEvqWF4 KOXnxSrbToZucR18 Oyc+CHFugGczo0WuTccx i7pet3arnWf2UhfrENJm zlQusQhwIUG4i1OcYq3h ODNbfWI1sNP5pK0t BgKqBtA3TFbpG961ZiQe bWEpWpovW28kR5TfbXK+ AJEpGyx2LXUjcNwnQR1o M1SwAMZydfuviHQo yUmpYQ7pIPCtdqbzIFJo tJ2mWFTnR4e9LvYcPkV6 OFgeQ3UnIPSfvldbLi56 nH0yFhQvIcK1UGst D9CapbT6RMXsoWTgEVuq FEI0L71mo1A9EQCcOMQb QQP6mFK0uF6ufWjbnvdy bGVmdDsgdmVydGlj LOxfBAzqK585PGUwsLbb PkNvZGluZyBEYXRlOiAg MDMvMjUvMjAyNDwvdGQ+ BZCeLLA3qCnoPGEe lCSdNRstLd4kaJdapGen XB6tVGTtrgzcHXVdbA6q ZUElsEWmlJanZV4fVOEq lamee587OlBgPRH6 WBAkwPEbC1AcfB0dAmXf ZCHnXYDmJ1NveWWdXWoy A592AOedBpB8RZAuglKk D2EwEEEidXljLoZ5 j8X5Vf2Ny5PjdpisR2Dm eDKlDfWyNakiWHk4G8Rz PjwvdHI+DB51QKZzBP09 WSe7YTS1qIsmUXop DJQvK1TsdX9iHrOnGTHx ZGRkOyc+PHRhYmxlIHdp ZHRoPScxMDAlJyBzdHls GL6tBk7dPRHqHKNa qVfrsMOcRzSlg2jkYOVg FElhQL0sxRzlP6CeeDS7 IXEgd6n3Gm19D63lW3Vb dXA+PASomZQ4jBU6 gC2sGcNwTcJ1XRbqR732 DvCxnCSoSudif5wlp6ex wMn9XpD3VSVyadQstVvj QVC3j3XrKs15E29t IHdpZHRoPSIxNSUiIHZh dOdiyc6rpT7gBx4+PGNv tUZ9pSE9fU7iUqOzSoM7 MRhaI496TvSjpAHm Pshyz7bmj4dzsFv9MtPx FNRwioKrzKbdSAT6s9Ph Nz95D8NnaVjoh1VqZai1 do83kQOqp2G9mDA5 N4UzYYApmtnpxZCewPho ZC5nUOWuxtqrUQKrsS6n KKIlY0u2YfBmRbW1UScf W3DhnfO4DLVbwPJo WRYhcCPOwB3zajyre8zk dzjsLiWbQHZrFSq1EDk7 YNXnkHvvZkBdWOY1AaA4 VDB3wNSfbT8vnDxw mqnapL9qHkj+TTJ2oOBb qDJLFR1bLhdivZN+PHRk BHU9aQaqBRqnZMSxmN5x JKGiQ5u0QcXyCmW3 AKhoF6MgfeU8BTNqtBJu TXXrwOVFtI9ygotgv3os tnnnWiEoZHYvNYr8QZs1 LWFsaWduOiBsZWZ0 IbV3NVJ9pENukC3qsPgx binfaL9dZhf+QmlydGgg HCM5NCk2H8WeJcr7TTEf wOrrES1loNGtBWkk Oj7tsOdhhTwsYG7kGTBd gdbta273QpRgv1ptXCCb kHCcKNfoJEX9B88de1H9 AOCkDEDlUHN9qPM4 jW1npAocfuycwRQerBzc woKfrUjjADuiLAdyU523 RKJefGpeXbQvSBw3T3Uq Ndt1OAFkkNosSA6c sMDrMVziWr4whNhlwBjv XM7hYZYglhcql982FpSw o5gcOSMinQBeYZspBTN1 O37pm1F5AOLxEKPa WTE9pYH0sG2mdVnefpmy bGVmdDsgdmVydGljYWwt BRxsD982ARTtrGklLmLx iCr0T3ZqNuj0WRFn xBmpCH0kiJFqWSzcCz7x dCqqqYlmYP5mIQCceude v362DmWkp1xaFANuuZAt USglDQK8S80rb0U9 OEShDGEcHOU4xIA4oT1t bGlnbjogbGVmdDsgdmVy sSejAPwjHXvpX479ZUAd cDsnPlBhdGllbnQg PNnwXUb3W2AaYefefWP+ YX75BYOiEZ42mKSmiEAx f3tzcDc0FhLzAWNfCYN1 oAlrUTyts2PyTKQw I71gdIKmt6A8RGCipXwl hULaGxGmeFQ9xR3bVUnj qfdba9voshhqCqpmh1pm pw13oO78V18uTAyv ZHRoPSIzMCUiIHZhbGln rh0hyD2cLn5+PGNvbCB3 gQP3vM9eHUMtKkR5GCxh A845QtLmtCXqXvyc p1cvz1arxPi6RgI0WGZg liAvzGquBWR9p0PhFj51 N81pIDnbYEMiKGSaZWWh OXDckLmiiw5kcO8r Ii8+ZPKmgRB3pDC9aN3j OmTbQfV8XVyxP824BfNr jRPfJzstE13jG7DtkRN+ AUCqOpb0LHYdgKzu XB8pcAUrVAzmMp6bKYW2 OdLjSlYsHFntV1WyZBDs ogoypfnwnFI2UNLoGWSy fA91Iw9tsNrjGOEy vNUTkA0kndnel4zztnad ObGoJXGaCEg9PBq9FYUz wWzxZbTxHUJ6KdT4VQV8 aYFnpT6oyHqrfery nP9bO1WzWAYqmcekYu73 jX3uXgMcJlQ6DPskGyu+ O2GRSoovHG5LJ4mMGOqy SzwvdGQ+PHRkIHN0 gObjLEkiIGOzyO7vMMDd C6p0LaCnPqJ0BQlpK5Dg RABbezsoRn63cU5mViFn PnW2MTrxN1NmuiX4 RQRplJPgWAbtYAF4B02h a6P4JSRaTXKpCRW9gJM5 tZ8slBwzzikybFMqoMjr dmVydGljYWwtYWxp I933BLFhcXjxNqEcKaM9 MaF4VmX5Z8KxUbl2EXEv gXylAX8bzOEbWCoyQz8l hRsddZlwYO4fDWHx eyamOAIhaV9sJXOazNZs vIcqCG5oCDLyxcaku635 SfEbEZN6UVNrcDOpT3Se kG9lYnMiUCBkEUYn X6HgrYIbTAheZ067MDua EaQ6BOQgnhXfB9YmIGOi jOmdUxV7c9Q0Jo41DORT ZWFyczwvdGQ+PHRk OOZ1dMysTYpgQPYzuF0d VKPyD0z7UoIpUtD4MHet H5JyGWKiobqaGl13mI6y ZlGtFxH7GHsxW5Vj kqB1YOZsuVCjQYuuMCP5 W52do4N6OPItMREhXBE8 tID3yO1byVmtjmlkhYVx dDsgdmVydGljYWwt DTwzY516KIWgfJnmRr7T FRF9S5SwVne5JBVktImu NI0heXOfFFymRd6bzMnb kBjlRL2cWBZkcqvk OFKjzO2yBVKtmZRotZsn YB6dYSAbavioo639XwOx BVB1IJPiwETcY1PwyO3c QoDdSUIuOZVcC6El uZMySPalC920RWagBzH8 BXNodkFhH0OiSHLzmKca OkQ2g3J3Ts2YUScbsKV+ CH95vy09E9BuGthr Css3IUKlEEL2sIL6lC9o KXNzTCphd5U7qOU7K1Jn xwZdjk0jj1wuFOWgBMsb C99eyOSlm2V1ESXq xQQ7WLGujEjqVeDmcR48 Oyc+ESQnqQjhx3XmSgmb i6qip1bctRp5NtNdGQIb bmIfaUtdXTN4u7Yy Er08B42uBSxdTVVpZVZy RJWvRDDawRdzcb6erD7h Ii8+NBXwtGZ5aSO8cU7m LdAjMvG7BKcyN057 AzSsoKPeIfucx1nzm4hb kDb5MlBbEXPhzoQgcRxh XUA6l7NgWp95B2KqcNls i5JdVxz6xm03sTHc p3O4fMY9O3OrKILzyzud xUMkjTyiLA0wNFJktkuq NYRgtL1tYKTnX9v7YlUy ZyP4UFutK6LoklF8 FEOfxZHeFWZukMJAgI2v yapjf2wzqbdcHcPaHPVi FUi9ZEe9JYRduHdzOfIz FSS9PzC3HXR5hBOn hN7xeHouccdtgO3yHrl+ MFi2i9rwzLMsNA2lcMU8 TO20HK68wHCli6S0pGO3 S3HvLIEkrnbawdzv qUJ3DYKhXXFvqW64Nw1i mZtqIh7pBEFaYET3IGMo vLMwN9IcoX8gPgXiSHPu VEQeF4WbjRFjJTln F333HHifWoT3DBBweqIz C9AlYBGpuLeiRuV9q5A9 Lu0BQU14KI20SK88fVIv p2L5uCJ9A7KaOAVh mkrpuvvazOH5DCElBCMr iR68Fn4yqKhsBa4aUWLi LPJ2LRIrfQJvG0IdxC7z UpKhHMMsVCGfE1He kYWoYKjzW060FGejYvS9 GJUimrDvG8IfNSWonTfz QzT4l4B6Fg4SNs83AA91 QL75vKLbj2V8xBT4 P6KsGBGmmqaabotesOZ6 YEHjKVUydR91Nx5fsFae Qp9mIGNeKIF0QSKedKTq B2UlqC3nKmVrARQm JSMeY1CidOJuTJdsO531 JMylJoJ1UKGkxaZfI7Yh CHEgpHkrZgB9z1F2Fy8R CDtfmmy3V1JoIhwz dHI+TG13JTQfXV25dJCr wQNqm4fmrCd8VxDfSBSw PFD8mXbqJXkhq4ErHRAy D95hlOEeh6R2WXYr bGx (more content not included)... [facility] Coding Summary HTMLBase 64 WkdaxpitLVy6rBn+PGhl YWQ+FU7IPDTxP50sbDMi tC2vZ4WBLBeQVpgqKNLR QJtMYnHxkiClBQ7puIYg ZXJu IC8+UD2eNZMxElvrgWFb s2I4nAO9P67lwk7mSSvr gDU2MDImNvYeroqxf6kz uQj4HPhvKkjnVrSq HOKivC86JMM8zZ08Sv15 hCRbpEFms4kchMb5RhIa IYLvVWJ3tKmdLPdtc4Hz ZZFvD81lzPNqx6A7 IGNvbGxhcHNlOyBlbXB0 uH6hFBfgsdckl4xciicd Njb9cq93uGMcx6S7fJQ4 S6AkufV9LTNtgSVf RncaqDYZrR5dojixx0wk duvyRbUmUIKpXBl5YOy6 OVYmpWptHlHqVY57VEC1 ZFTvnlMvM4KdMTGn oIofAnJ0i5B2Gk0HQ7OT LmrdY2HVKABCDGnmhHV+ PT76py55G0JwAcfqLfc2 OVOvRDI5jRS9oW5n SMTvMVvte3W9vRQ6E0Ku udSfhh1tn5qzOYWmOBkq H72lyAFhy8W1ZIPqxLQ8 GHPooBqgYhYbnR13 Oyc+FQEdfQbiy9NuOldp f8ktn4przRv4GkbwRNQf jcJxwTkyHIX4l3SxSa7c CASfmGW5tMZ2dX7u EpLlHtC7FFwiV950PgKl nTVkSxviY32zJ2QnyBY+ VHYwHlb4POScuRveUS7a J3MzSZAgvuoltINf uPgxUT5eYFVpsgbhVSZx tB6uIJVkB9y0ZtGyIhY7 PUwbE7AkZXEkhcnxFj10 mG2lPtOoDdE6APrn J4BxmxK2XWHmsIXwFTpu AAK8W58ho9O0RSBtHWSk HIM7eMF2wQ4dyGaktfhw bGVmdDsgdmVydGlj TBcmJVerR648XZTfyVyw PkNvZGluZyBEYXRlOiAg MDMvMjUvMjAyNDwvdGQ+ BDNsVVS8aUyqANSf cVZdUDepHd9peBtwiNli GD2rYPOwiumwMCTmsF4a DBAdsRCteAeaBB0uOHOz gbdaz400AqStPXI1 GBTmgTXaX7PkqN2qItHt DSEnTDVzY4NeoIBeMBfv F537AZosIuK4FWIproLy C5CcWKXuoNxhLqH6 u6D9Zr8Xt6QozzxwO3Ps mVQjSrJyMcqmLWt1G7Hh PjwvdHI+MN92YCMsWX98 DBj1FLT6qGzjPKce HGQxW3XgfE2wAsUkBJRi ZGRkOyc+PHRhYmxlIHdp ZHRoPScxMDAlJyBzdHls NK5hHy0zWIEfFZQo pXzkwHTrQwGga1ooMPAx HGjvMI9xoVgzK9VmrQT0 BOZyo9o9Ue54W38kC9Yq dXA+ASIcyNQ5uBQ8 hG4qErUzVtB2DIqmR547 CjErjYGpVbbzx4bgc7zh fUw8HnR3NFAuzgKsqSdj ADL9w8DgGb73K33f IHdpZHRoPSIxNSUiIHZh iTauxu2mlA5jPq1+PGNv dJD0gDL7xZ0tLvJhInZ4 OEngD509LfNilIFc Leknd6uwy9uxxTg4UkLy QFSvvsErmOisTLR4g4Jn Nk77G6EwlCmjc7KkDyp9 cw84zMYft2W5pLI0 H4KlKWAbertooEMykJkr FU0uUJGzypzqMAOttQ7a FWIiF7z2HcOuLjW9SFsw A6KrolP8HEIweUFd ACLemNLAtL7cqirac0er yyhtQhObIBUmWQj5RLy5 CCGmiYvhHuGxMSW9GtK5 YBV1pDSgzJ8mfOpt mblhzY9uXdk+AHV3zQFe pWUPZB1uFmptrPQ+PHRk VHX3rSpsVJllVBJxoG6m JRZmY3x9NbDySlO4 CSfjU7VsqxH2JTRzvPNr BXVviBEWjV9zpaxrg9jq tbglWrYrIWSiMEt5NIa8 LWFsaWduOiBsZWZ0 UiK3NMX9sMSvtO9ddLmu gqoiqQ5zBlv+QmlydGgg VSE4CTh1J5PoBxm1HVPj aDvoNS5moIXdNGvb Zp1dvZxpkPhoHI6yMXZj ostqr964XbWwh7jlWFWo pOEkRAzgLXC2U50vg5Y0 ALHfQVAzHVF5tMX0 qU6rxPnatikjdJMxkUza pbQkjGsvVZigARcsS252 WKJamUjwIfEjWYk3N0Gy Gmz8TCIvxYyvGL9u dNAdFLhaLb0xyRjryMfn VU9lNFDprtknp342TpDg m6lkQSMncBIvCAwlYKR6 H83tq0E8SOQwLPWo PSR7cNZ9uN5zkTjpvhrv bGVmdDsgdmVydGljYWwt WPrkY332WKZwoNzdUqOo qJa8X0SeLio8SAPy zUeoIX3cmSDhGDqaFw3z sWbaoYuiXH7jHZWivgdw v164IzQoj1xgIDQusRRw XRdaRRF0J16fr3N9 FHOfSUZgPHD7zUS8oG8b bGlnbjogbGVmdDsgdmVy bQerNIveDZzgH815DYZb cDsnPlBhdGllbnQg VEvxWHo0G6EcOmjzmOW+ WS51HOJzZR05eTHmfFVf c2uhtYy0IfHeFWVuWLR9 oCghEFcox6ClLMOc D42cuABji4W1RGAcgHbp yPUqYbWxiTI4eO4wNPuw mthol0fjfataWssqc9gq qz54yG79V16dMCen ZHRoPSIzMCUiIHZhbGln ex5wuI4fKl6+PGNvbCB3 iYI9nI0eSSLrNiM6KQyx T382PaRhwWUtFtxj n6auv9xzpIx5XtL4UFAo jkXubDumQRO5u6PeQi64 I47cNDwnECTuLILcTNFb ROYmiCzqsr2roC0k Ii8+KLUdeGK9kCG7bD4p AgHuTcO4XDmcV596NoSj eVNqKxxqF32kQ3EqmHB+ AKFsDwm8YYPhwDcg IW2yaJYnSIwkOt2cSTJ6 CiGvDvFmCPdsZ1MbRLWr sjocqppvhVF1NNHyKKRw oV97Wp8ymGsaHJQm fZYCyR4gtpbam3kpkuxk GlWbWAReMQx0MSm2RCIt hRuxOhYrIJE8HgR3HHA2 yISysP4woIbfscvr yW5iA6FgVRTtafwzSv33 pD7vLoJbEzP8TIufFbt+ X7MWHzfxWY0IA5vFZGzb SzwvdGQ+PHRkIHN0 qMorNAqtIVMykZ4iQORx Z3q3CzMlHxH9HBrkQ8Ln PIDaxremVp11fD3bYmUw VyJ0PRfwT8QnhkJ8 KAMipLXmENbsAWH2Q45s r5V5JOEfXLMsMVX7rMH5 pK7feTenyjlzbXBykXcq dmVydGljYWwtYWxp C145ZMRpsEwcUgEhOgQ2 JiV4FjK1D8ZhSkk4NDTo bUqbNY9tpYIgJJkzFr5z tVrqfWtmCN8wWSYz lcphSKLvbU3iMOZhqENq nJwcPR6sGYYrzyjok887 BaTgUQO2DMNtzDFeT9Pr aA0nAiXqLXTxXHRj V8BekRMuLRflT505BTbf BbV7HYYllaNkW8XpNLXw nJcrCrS5k0R6Cg97TSGU ZWFyczwvdGQ+PHRk FMY6zQyxFNpuSPUojJ2z GMXsW9w7PrDqMwJ6ICmi Q4RcEYAvuronDh80jQ0a HpFlIcQ6APbmJ8Us iqL0WGPupEDrEKtoVBC5 W38pm2H6ZBQjSUQbXHY8 hBV3lW3daWzfihstjMQj dDsgdmVydGljYWwt KSfuC713QLBvoNnrKg4U RLA5D1IbXtp8NKTowPjx XQ4xrNUiEYqbTz2cyEnk wIteGY8nQFZekfnv BPLyjJ4tMRGhiULbiQie XL7xEJIahusjx550BuAb VEA4UWRcjCWoR7OqtW5r YpWuYMVkVQNtP5Ae sYCmCBdnR783EAvkKfZ2 TEZntaQgP5VfCTKcsOob BlC5i7L2Qc2DYZyhrHF+ ID02ra74N5NtPptr Lpn5LUBpWUY2eEJ8xY7q DFHiNAikw3X5hMM8Y2Pu ufAfsj6zp6rzTOBnIPul I01uhHTap4F4FIRk sEI0XNQwaYbeUjZjvZ03 Oyc+VDCrcVopu3KvGjpb w2npv1bjsHf8MhAnOUJi nyKxlDxzWFN7j9Vm Ff62M38xLUkgDAVrILQv UWTmNCWwuMcrjv0taZ9m Ii8+OIOouWJ0nPR9xJ1t QnZsPsJ8UCiwD803 ErAtaSThGwtkh3dua1jw gIu2XjVmOGVxcoZpbSdf HHH5u4OeIa91Z5WdtWou a6HbOph4qf29jGHy i6P4vAS4Z5LvXIYvmqst kNSzvDltZO2mSJRstrvw UYSjbF4hBNWpR2w8LnQo NfM2JXzaF8NpyaD8 ZYBbsJAdMNDvaSLSdI4j pvpys6tuaioiGkGyVYRa VWe1UVf5RTIafLpvQmHz WSJ8StK5PVK0kLPt mV9rsJbchlaaiU3iRrp+ QRz0s1aepUYzVN8saOT0 VB68WM17lGJwl3U6qWC0 S7XjZVTbrizwtiux mIW5JIXtHAZhxF28Lx4d bEezJu5qPILdMUM4RUHk rBTlM0BvzB8wYqQuUGYe VAIqS6ZaxTGaRFuz B351YHvtUmV8EASmblUu D2BzEGDkqAeaIwN2u2Y6 Us4LIM81OQ73UV37lXLq s0E3dNV7H4MwHOWl pvevyzuxrIX8TWJrJBSt vM31Ye7ipQozBk0rBRVj AYT5RACrhOVuI3GnoW0a LeWbLKKdFIIyF0Kf uOItNCzbU895QAtqZiU7 MALketAoD6JxNRDucNub UjP6e5R5Vk8LTm99TU07 KY08pMCby0C2nGX7 M8CnXACqhifwtelsgGZ0 OQFuJYXvcR83Ko6eqEjk St3fGIVaOLK1OAXdySPz M1OtsB6cAzMcAELc WCNoQ8YjqZEzCQzfH229 APsrExJ2HPDghvYxB3Rt TNXtcCksIlW9k0Z5Vr8N YFlinwq8Q7OiYabf dHI+AM66XJIrAC58aHQd wDSkv6ebqAc4QcErBHNa YNP8gHukTDxcb4PrYGFz D83hdJCmc5K9TKMx bGx (more content not included)... [facility] Wound Care Noteon 07-29-2023 Wound Care Note [id number]. [email or web address] [facility] Coding Summaryon 07-24-2023 Coding Summary HTMLBase 64 FhybgyocTBf1bUa+PGhl YWQ+DR7BUCOtO15rkZKw qE6fG1OVNIzTJyxeURAW DSkCIzVwdqRbBQ8wnKJd ZXJu IC8+WE4aMDIgRqgtrDKs j1P4nNV1W84dav2sWMsg eRR1BTAkDcDobpivy8xn xYk2EPhwOhusWiJn LKFzbJ37AFQ7zB66Cr30 oQHelYCmx1ghzCy0VpCv NKHiYSJ4fMatKCcbg3Zp SMTlJ12ynESoe0N4 IGNvbGxhcHNlOyBlbXB0 bF6zVNwxyhsnc9oiubth Bqe5pp38bCJbu2D2iUZ4 K9HpwnN2ZQXziDUc DvhbgGVBdG0kpjrio7tr ikqzOsBrWLZzTUo4LHv6 GQXdmCmsBfWeSD41RRJ4 EVCrgeInB8OkCKVy xXrtIkY3v3G2Qc9RA0GH GyjmC1SKIEVJIArtwGB+ KM04on87W0CyDvyqBom8 UGXoSGS3fWN1tK9d IZCzIHvuo8O3vHU1G9Ro dfYnac0rt4cnGTSjENbc V46spSNwf5J5ZSPiaTX0 HJLluQqpSaRejE90 Oyc+VVWfpVwov7HeXxre m2htb8cevWu9XfxuHLLz zyZrlPjmEEL7z3BiUz9a CIWejKF9bOY7zK4h BxAjSfL4QYyrN045YhSj zPGfFeluL25zM8CpwCY+ XTHpKsl7WGCrkHctXX1h N7CrARXsrswyqTJz oUqkLX3iSJLjdnlaVYSq eR8tDYClS3n9OqOqBsZ3 OMgnE6AgKGWyvhcaCt90 xD4sWjLaTxH4INgg Y6ZejwJ3QFFslNFyXTkl CHP4D60vs9I1KJSuKACy ITT0oRM8qT0zeEyprtcp bGVmdDsgdmVydGlj LUmjUXcfX285UKHqcAvb PkNvZGluZyBEYXRlOiAg MDMvMjAvMjAyNDwvdGQ+ VHEzRQJ7aXatVFLt xWSuVBafXx8ubUmjmXkj HV7yIMPatochXKDkxA7k BVHqdZFlmBrlPO5vLRYq xxtwq499KwCiVWL8 JFLhvIVtQ4RirH0kJcJl DFNkZHRdV8NcnPVcJKam G718XWhrPrV9IEAjkpBm W4FiWZYexIriZyJ3 m3V1Dw4Er6LkxalzH4Ed rKBuRfPbVjwvFTy1M1Rx PjwvdHI+GR57QISyOK61 OWl6COF8yUgiATqu JDQyS9TffW6dGjTnQZAf ZGRkOyc+PHRhYmxlIHdp ZHRoPScxMDAlJyBzdHls VL6bRb0hLSVcGERn sSgmoARxZhMum4mzVDSq YRzvIH8vgJieU5EwgUK3 TEYzj3c4Bq09N04uB1Qz dXA+ESHutUK3nPP0 nT2pDqMsMdV9MYdzH362 MvArtCMdDphuq0cbh1xi xDa8SgL2ACEdjiGunRdt IPI1s7ThGq75O63c IHdpZHRoPSIxNSUiIHZh pVewbp7btG5eLx8+PGNv fYI1aKN1wD9mAqQhVjO2 IDzwQ196YkSngWJv Jemdr0hje1gmtOu5MuYc HHAbkyStcNngVNP5a6Md Yc50B5YlcBhzd9XsLdl5 ot98wSOzh6S8dEW2 Y2MxLVMbjuksmVMgqYqq GM1fJLNaumslLUWroD6n YUAgE5r1HmPsOuI3LUrm Z9PcneI9XHIujXMh ZNZloUXIfW4nznirb6ix ekqpPsUmNYXgGVp2MLm3 DYBedMgbMpXzUJA4RqY7 EIK9zKGlbF0uoQdb bknplQ1pKlv+VBE4mZWc vQELOX7jBcfypNW+PHRk RKH5fOmjHJoqDUDheX5b USPxF8g7WtGgXjY0 QGfxL5SbxiC5SUOaqNPu XQMafYZUyO3pezmbb7ld alxwUlDvXWCrXBx0HCv3 LWFsaWduOiBsZWZ0 EdV4NAK5xVLpbV4clCop yjlavL8vTdt+QmlydGgg QQN1NGa9A7YzHpc4KKQd jLiiQL1blTEpWWhv Af1rdVwmpAvvKR6nETTf glxjo428NfIeh1jtVWPe pUWrNZdhMHV1A88wj6Y6 LMKuTKIgFMR8uKR8 vF5yiNpftowrqYJiqFvd itFleRoqFWgvWWcyF654 ZIHuhOvnHfLaNVh9S1Hb Epq5ZJAtfAquYS9x kCVaTJosOt1qmUeycHoy ZE7tFUNejisjj724VgOu a6emJSMwmDFzAIqvXBN4 Z66xx2T4EKDrBNTy LTM5tTG5zT3lkUrsxgcx bGVmdDsgdmVydGljYWwt ZMlxZ318XGDxxWpeUcVt oWt4E8IqArb6NDZe gXsaGH5bmLOpOYfuSe7k rOmcdDlgXZ2eRYAuuvsp q655McHsx8lrWWBbfOQb PZhvNKP9N87wk3C4 FNZzDRLwGJS1dEJ9nT7b bGlnbjogbGVmdDsgdmVy rXlmLOsyRLblA917EJSw cDsnPlBhdGllbnQg MOlbIHu8F7NxPsasdXV+ WL24KZStJO23wGMlrVTr r6hmbTa1EsOmJSPdSSF1 hTzoSHnhy9HeCTZa L32evDEwn9E5YHTnoUyj qKDaSiBykZO9vH6lPZgk ypfsa8wgcsfzVrxxh5ar em99uZ62L18nZFib ZHRoPSIzMCUiIHZhbGln us7ymT7aOr7+PGNvbCB3 eAC8vV5qMOXdZyR0GNph G639PbPjqGBpOilh f6cmw2chrQt6LcZ4RLJc koRauTbsVMT3c8ZcLq17 M71dRUzbVCQoEJBnNMUm XTBobCkowp4yhM2j Ii8+LYTyhHV4dKM6tU2f UlQjZhB0JHlsN930JnSt tDKcGwucF35kV4IwxDI+ NYVaRny1VEPpuBes MM6hoDMxTKhnTc9qWDH6 JoGqBbKyLLihO7IvQSYv qiotaxwxhBG1LVOpFRBu tZ80Ff3flKbwYJAo kMXGrS8gpxofo0ljuvza FrQaPIPaGXb4CAv8VUPt sTmoAmAlGDR0OaM9MTO9 lTGkuM6rrAxfewdo jL0fV2VfTJFrvajcSk64 xF2aSdNaThB8YCzlVjy+ O8DIEzfnMJ5IL6zREPfy SzwvdGQ+PHRkIHN0 zZlhBWjgBLTosF4bMTMr V7g9MrUuTvU3YWmyV7Rb GFPjkvycRo08zZ8vKoBd InC6BTmjQ7VahaL2 VCJrcFSqNNjiPMH5V14b e6L2UZAmACHeWHW1yKI3 sJ6bnZunxmpruKMijIkx dmVydGljYWwtYWxp V805UBYfnErnScCoOcF8 LbX4FiW3H8TrCkw1CGAm yJmmNY6fqFGuBWvdQt4s sDrucBcgEY5zLETi scwhEMFopK3jNMZkcELa uPzgNI6pPCRypymek450 ElHuXZE6TNDuoBBjV7Jl sE2vVrYbAVByUMVh O6SmxUGlAAypL182ZBiw RgK7RNQaemNtA3NfVQUh kMpyCoZ1h8S2Nm16FWCF ZWFyczwvdGQ+PHRk CRQ1nAjqNLhzYHRvvP4q GBTmP7x5AeRnCoQ2EBtm C6BwMFQxqeqmYi46bO6o DgXdWxM3IMvfI8Wm xjQ2HYIiuFBjHLdvQMF0 P96bb2P6XGPbHCEmRHM1 cSJ2gQ1wqWqoolqncYYz dDsgdmVydGljYWwt QArgS067MQXxjQebHq3U FIU3K6WgPyb8XRQlaNcw OR6vpGHcMAznTv6eiWuc sUhaLW0iQLUqnzbo AIOlnO6oYCTpwRQtlZmn HR0zLUOfzrjkr127XbSq VTG4ZSGfwZJbB7XnmL0f SgAaNEMtEKKsO7Pv mRUiRSynX968EOvlMqF1 CSUlqwKjY6WpLOGooVhg TlX0o9V5Ad4GDNqmyHA+ JP28as60N5GbJpia Xyy4ZKCeNCA7iBR9mO0d RSPbLDouo7L5vUO7M0Dn dlBytc2qs2elRWLeSBzj I06fdFVtm2G3KXPk yNB8WUGwzNlyExCdrP36 Oyc+QTIygRjgu7UgBkrm d3tfx8mrzKf0QnHmTFUd vyOffTaaGMR0k0Cd Pl40C78lKAkzMZCsDKRk MAPrUCLjsPpxdi9uuT4d Ii8+NRRvrQS5gYY5wU9l ZaGeFtM9HJrqQ809 RqHdjYBuJuari6jay3wi cJt9IxYbUEAylgHtmBhv ZQB2y9XeNf44Y1OxuDqf d6DhZlc8mh26cNZv k9E9qVW7Z3UbOMDfcjwb aADzrFmrXR9xSLCgjsnw DLCygA7nCYMdB6u7ShUu VqX6ZDhzG8HbfjP2 QDRblOFmVOOpiOVNiS8p uipyo7hecenaKrQfLGLj FZs4DJz9DHTwdPmcQdEx UUA5BfI5WDX2xUAe zQ5nkSixdxpqbX3jGnz+ NHt0k2duoXFuOA4kxMO5 IQ61PP73rLCxi4K3uMG1 K4FmHJHrxltawmne hWB9UTTxHRSxhG65Ja3z aZtbWj8cLVTgYOW0OXGr zAUkQ0FfbX8lNsKkJODh JTPdI4QmgQRnPEib G001ECygJaV9NUJigmHf A5EbUOKmzVcbJbE9v0P2 Wy8BUS51FE24LV19qHKs h7F7sQW0W9VyBOIe baerhxzcrQQ9WALqUOAp kH65Sh1hlUxlAk2pHOFg QCM1BSBksOIzM2DbqZ1r MeTrBMZvDPHdB6Gh bVSzRRfdJ945BRybThM9 TATxdaTmE7ZwQYWqmTqn SeB5n7Y7Yp2ZEh30WY90 JM05nSMzz2W6dLW9 N0KeUIFjugvkmqhrvFR5 KUUoNDJceH45Ve0feFqe Km0fXZDkWFE3GUCakJBz X2CwlH8tGiMlGPUz KUJwF1XfyDObXOliP013 EHmsRuF2DQEvorRcH1Tu UAKqkTqnUfM4b0S6Sw5H JJpxtdq6N6PoUqbm dHI+NC98TSEkTV12jBIk vNEsl7klzFp7JmOsDVEh ZDZ2kHgeCBfsa9DhACSy K79ldVCvp9G5VGLa bGx (more content not included)... [facility] W[facility] Noteon 07-22-2023 Wound Care Note [id number][email or web address] Coding Summary HTMLBase 64 GoydaiqhNFg2oVq+PGhl YWQ+BK1MUDEvF05iaTNq xZ7wX7IWYPhQUmmxRVHB ZDxGXrTjatNoHS1dvTCj ZXJu IC8+RJ4iJYYpKznszUOn g4I1bHY3L65qll7sPJkg rVY0XJFwVmAcheeyb6uo oUr7LPwtGbpsSnYs FFEnmY48FEV8yV75Rh50 uKDepDLhb6tawEb8BxRx SXTvNIU3oJzbLJqcm4Ht RGAzC58pkOErd7A3 IGNvbGxhcHNlOyBlbXB0 zU2mXMsniucbq0muqmun Byf5us96cLXeg7C2nTV6 Y1NolqO1VGHleBEp RrluiDSUlY6kbcghf4qg xydhQgPwHSMkIMo0GEz6 TIGbdBqfDvMeNQ73PKE6 ZXMxjyUeU9GzGMHt hOiyRfQ9e1U2Uu7YT6VC VerzK1VYOEHBFJrrcJZ+ GI69ti06N2IyMhldMsq7 HKUiDLM5gND0dM5w MWYvNOqsf0U1vBW2E9Us klCaxp7ks5upPADeXOag I62dpNMcr9K5WVNrdFJ3 MVHjcUecHrOiiP30 Oyc+DMXsyVtya9KlGglp s4hqs4fnxOa5WpvzNHTs leKcuQenYUU4y3LrBp1l WIVkxCJ1fFE9zN1p VnInXnU4TSwpE491FtEo bKCdEjsjP59vH8DlhOV+ IYVrLkd3TLNrjVcuCR4t Y3YxXIOskqtneXWo pYzxVW6nZWMedjltILOl wH2vVYGoJ8u1AnPnWrQ2 KVvkR9VpFZWiirkmEa64 yJ8gZpFdEtY7VSoy P1JdpfD6BVPteVKmVShl PAD2D82yi2F3ZQJaUDAl KPD4bFO1nU9cqHjljfku bGVmdDsgdmVydGlj MIiqPGcoQ356XUYtkTqh PkNvZGluZyBEYXRlOiAg MDMvMTUvMjAyNDwvdGQ+ WSJaKID1vQnhFGAn qYIsENzcAn8lrZqznUku PL5fJITxsmhzSEVecL1f TGDolLNteZzdXY8nBKBg qghuz648ZiFzDTM1 KQUfvSNvY6ZznM5cHsDi JCKaGDAxA4HqoHCoMGbf N310LEarHxP9LIDmtwYk E9FbPJEsiGpnXvU0 v6N7Gz6Br7RorvdfO8Uv gHJnMsAjTzdfZWk3H9Sk PjwvdHI+CM27LDXyFL25 LVl5BVB0lWasGBhz KPSeW3KoiG0bPfHqZDTl ZGRkOyc+PHRhYmxlIHdp ZHRoPScxMDAlJyBzdHls BL1wLs9fRBXkTKFd wGqprAJzLdVbu5epSNHh TBxvUD3vlGhoV8BpwHB9 PZXam9m5Nm22R69aX3Xo dXA+QGDgqJF2iDG2 bN9lSeTgPxN7QWmgN374 CjNaeOQjKgsyo4fjo2yg fRi0HkZ6XEOdnySmnHhv JAA3u7HkGm19C88l IHdpZHRoPSIxNSUiIHZh iJkzpk0mqC4fRj4+PGNv vSL6nQM1rZ8oBnQcIrU2 QOfdR302YnVsvYJz Qgtgl9yfj4dyuAz1SfXy XUDuubTabWfgNLS3p0Us Sz74O2LswOkjt2IvZkx1 te27yNNfc8Y2iWZ6 P0AeTUUvrmciiYMcyAag NT1wESEhmydxXYGteH9d GNDtP6g0HuJkEvL1BCpe P5WrhhA5WCFbzVXf PQZboFMEwL9hfqnnc1fm zmcvJhXgQVRcPFc2JXo3 JNSmpZrcYvJaPZK2HlP3 FKO6lGGqoL0kqAoh wtjfkL8uIve+RYH1mSXd bDKRFT2aKbcayOZ+PHRk TWA1hZwlAZciCIChpP3x SFQpA2a0PgEmWsG8 FDtvW8TkxyQ6QCCkjUGm YPEpfCYZcH7oioxpc0pu qrgqBlGoGJCyLOt2FPs0 LWFsaWduOiBsZWZ0 NgT3MUA1uJOduA7bmLwy spvfuS7eOuk+QmlydGgg WEV0ECy9S8ChCss0WJNn iYdyTV0qzTIuNKjz Yw2pyQymkRzdOK8dGZBp dtyhy350YoXjs0ghECJr kTPzPHxuAKO6U33gy5T5 AEVgZETtWAF2bMG2 fU3gnSemgiykdJKgtFqc boDlgNtfPMwbZZdtO260 PMXmiVqbLoRvHCf0R8Or Pbj8BLDgfYfpUD0v qHJvKNybVk9omSoboJyd TF8cPUEumazts935MwSb e2onSIFsqHJjGCnoMGF9 F10ix1S3SNElANYr JWQ1tTA0yL6peDtlubzz bGVmdDsgdmVydGljYWwt QUvlW676CLMoiColOtVs cEl8M7UmUsc1IPWf qDqcLV9emYFuQEidHs3o kEkjbCgiZR9vPBHfqsfs h983UeVyr2gaRMSdiILw FGlrVGQ8I46pv5A3 IKJaAGGzFRO3oXB8zJ7e bGlnbjogbGVmdDsgdmVy hNrsFBycUKjpC630MLSo cDsnPlBhdGllbnQg ADswSVy9Z0PxLmpehRO+ YQ35DCOtER52bAYbyTJz x6tdaNq9LpObBAYdAMJ2 pGquNYnqj4ReLMIq Y03xwVIuj4I6RNXnxRto iJEtRuGdsYJ6bA8wFKab yodfa1sgnwbsPrlhp3ks ub36iU63K18vCWrm ZHRoPSIzMCUiIHZhbGln tp4tmY5qYs8+PGNvbCB3 dSL8mY9mLPFpDzR2FIto I548SaAbnKGlUceu y7pgb5zprSk0HjH4TPPq cjDgiFtrHTI5h6CoIf98 P10bDPkbMWZfJAWgFOIl RDQrzPhohi1ywE5y Ii8+HREjpEL4bJE1wB7i ZxUtQlR0TUqvQ085WgCn lKTpJjbhT97yV6LkxUX+ AYFoQwr2OREhhQiy AW8tkFXkRBuvDs0iDLI4 SiUgNpAiGDurH6QbFFDx zshywzivvUB6PILoJUGk bT20Gk6wyHxeCZAe qXYLbY3tsfvsf2ieopte IeLxUCZoIKs1RTt0HAQc tQvuZxWfCKQ5BjR8UAW0 lIGlfX6hbMqorqgu kW4iL7QqHJDwmgegGj37 xP8wYaHaVaA0YJdxQlr+ K2VFItwlAB0WP6oAAWgp SzwvdGQ+PHRkIHN0 bIonSHofIWTkvF1uCXXb N4w0NjQiUkF6ZRolD7Hf XHPnipzcLo96bP0kQyZm AeO6KGkgF4KjdaU7 EZOydZDrMWgbPWC6W09h r1N6ZFHxLHJbLZS4cPI3 qV4nkXqamwdcgABiqRbi dmVydGljYWwtYWxp L501XFFfpRhqIbKwQhD5 YrX1NrU9Q2DgYlr2SDNu jMekAT4oaLVlPAeqWd9w vFlyeWzfIT1rCMSc barrFQRfdI2fHDPmtZOr aSqcHI9rNQNusveqx012 VhPzHLZ5SHWhzDKtA6Kg oH5yDnYrHLNxSPWy P8JmfVCaWQbwT666DGxh NgB2SRJbieRzG2RkCFId nSecUwC3m6S9Ba51LNVF ZWFyczwvdGQ+PHRk ZBA8cFblYGnbJPFpcD9l TJXvS0v7ElZgTpV0CYez D2PzFIOiejcbJd78eU7t MtVpFkJ9JTzeM3Rn nwL0YXZevIBfFNzxAAP3 U78bg6B8JZFlLNRqZXT6 rXU1wP3uyPckhsddgBAd dDsgdmVydGljYWwt XOriQ350FFTtlZqvFm5A XXW6F9KzTqj9MSPfmXuu QQ5keRIoHUehIt8prHpo mVioWX1aUYJguwgv FPYnlG7vLCOicPSqnAsf FC4lLJGleedya671CxZi JVT4EQHeiHOgP9QiuF2v HgWoKOIcKPPlX9Hc xBBhXTcaJ460YLqzXfZ1 MMAvioIhL6HuQAOqrSdx OxB1y6F0Uf8FZFzbhED+ PU77nj81T1QrXvrd Ipt1CKNhHIV1pEF4wZ9g BWYpEEqlg2S0hBW9U1Gd fhJmsx1so7baJLFnAXdb O71npWAkv5K2NFNg pDO2BCQnuUvoUrBwfX63 Oyc+AZTtxIwpn3OtTofk d1ugt9vqhEv2MnUbUFRu plTvxNjhERK8u5Ht De76E78zWOpiKJWeBUNk FSDeEJSjwXiirh8oxM8b Ii8+QGSqhWI0aGB0fP2f SfLmJgT0EWkpZ476 CfGpyNDqPimup3kcw5ju sVq4LaKsIBRxtkPabGdu TOA2g2FvJz61P5FfvPzq w1HlSws2yc20hIOf u7S5vST2F5WkIXFbfmxf cIHxpArnBI2cTIHnrjiq HCQjfD6iCTNwP1s7FiMc XeM9GYmkT2HkccN6 ICVjuWRhDRWclENLiZ5d qojhf3xsxihsJaHeGOGq BWt1RWd2AUDenWgiGjDy GMQ1KaD7APQ9cLFl iH5oqLisimbnbF0zDgd+ UOo1q5attWSrBE5evML4 NB93QM07wFJti8J3yVV9 G8NxVYXlkqwbwqee rKY9ECBkTCIcaJ29Yz7q qQgpUp0uDICfMNC7QVAm cGXeO5SybF0aTgEdCVPg TQIaZ5BnnYFuUFcu T360RMymKjZ8QHUxxuQb K4CiAQGqhTtfHuN9k9T7 Zr2WNE57VV72TE11uFRs w1N3tCX0R1HkCRBn woyfwzvwvCB3TVAaTYLg lM63Ti0jzAqlMl4xAJRz UAQ2VBWguFXrR2YcdJ9p OvUiIZVaPOCgV1Qz zXLhKJyvC643DRluWbN6 SLQoyqWmJ4QqKQGbzHeg OsX5m7I8Nw1VQk23IH64 GZ62vNTwx0M0nTS4 U7IsOKOuoicjcrladMA6 MEPeSTQpgX11Vl8hpLtc Ie8nGJFtSFL3RQThlLCe H4EgpP8eMfIcANPb KJKuJ7PinXPmTGoiK633 FGzfKpL9ZQWokeSyG8Dn NMLumTtiFdM2q3B9Rd0L VKmgdsb3H2GfAepf dHI+OT19NMXxDV80bVXb cEUhs2qlvId5CrJwJQYt WGI2dEenGHjwt5PwYNGv D96dhJXbl6Y0RSSq bGx (more content not included)... [facility] Coding Summaryon 07-17-2023 Coding Summary HTMLBase 64 GhyuictqFYm7xBo+PGhl YWQ+FL5JSKJyI93noMWp gZ0aS9CSPJdBZikdSFSU TPwYCtGeqhXjCD4zjAFe ZXJu IC8+XK3dMFQlIftpjNGp o3E6hQE3O82xnc8dSVmu jZQ9EHZoNxLymmtwk8rs xIk3VKvvYndwCwNf JJXpsG35KTU5cO96Jc89 eIUlaVYmn0egvWz1UaTg RRTbOIT6zCvfVSxht5Iq WYRzD58bhHCwe3D2 IGNvbGxhcHNlOyBlbXB0 wW1pMPfksrzae5zyzoqk Ggy5zl25yDKyb8S0zLK0 T3AscdS5JRMrrAFl DztbdRREbP7gxsnwe0py ixvxDjNsPBWtQTa5GMg4 RETffVmqIbMaHH91FLZ4 OZPbicOsF3PmJCPn yEreHdX6a1X7Ve9JZ8RW ToxoC0AEGXMHJLglhBG+ FU29yz08K6ItXiekDho0 OAZwRUY0kCK8yA6b BYAiRWddu6Q4cSS5B9Dr edPwbx8mh6wdCDNfOAbp I64nvVFdm5H2IXXgzFM2 AJTseHukUzOdmN24 Oyc+MAFunDyos3JlKxkl r9dxw6mtoZf2HaxsBQTa ffRqkMgnNPB5e1LgGy5b NNNkfNY1cJG1eR2g JnHeZaF0MTjxK109FzZg pETiLxqbN64pR3XgvTF+ PUBbNyv5JUPqfTsePU9m K3QqFTCjwnmukIAg gHkvRW5mTWHasfvuIDFn pO7eOVDjU8h9HfHoBoR1 KFmoX1CbFZDpobmsGz70 dU9dFwOlEyD8YFjn V9MtdgG5UMHpwLQwMAem WWF7M73gt0I5RFPmNKXn NSA0tWL9cZ3egRcixvim bGVmdDsgdmVydGlj SOceSMwnZ309TGLxeRur PkNvZGluZyBEYXRlOiAg MDMvMTMvMjAyNDwvdGQ+ INBzMDJ8iLeuOMAz yPZrPJscBj7ojOkrqYci EO0mXFKhtvadABFmjE3r LEGmmZLhdPmoQI0gXXMj byrdm788KwXdABZ8 CGXuzSPeS9ZscX5lUeQp NNNtXUVdK9CriTInQMrs L952HFzbYoZ1YVIsvgWp G7LgYXKomEzdSsI2 j3G8Gu5Fs2AtzqroR6Fq bEOwVnFpIbfmDGo6C0Es PjwvdHI+EC58ECFdGA70 WVz5OWD8wYfqKNym EEWsR9NefG7rPdKtULEx ZGRkOyc+PHRhYmxlIHdp ZHRoPScxMDAlJyBzdHls IE5nIx8mOATfOIFr xCceuRWdPeFty9nxNWUm GZivYV0zhVsfZ7PjuTV7 ZTDaq9c0Gs34N81sR7Fa dXA+RBXoqHJ7kEV2 rD0cPhAtAjO3AQqaL395 FlPiqPOkDzsbv9aav1va fYt9MkK4IXImscZvgHlp ZDV9a0OyIs07G39h IHdpZHRoPSIxNSUiIHZh uStucp6cnY6jCy0+PGNv eXH3pMX9jG9zFmNqIqU9 NPusP768RfTkwVTq Rjzzx0xwu2qkiAp5RcUc EETqzpSimPahKPU5i3Ne Te64Y4HniMevc1EkUom2 qr01zFLej2P0hPB1 A4CxKHIozqlhrPGtsEpg SF9oFMEbzfugMNZwuT7g SGJsD4r4GmGbHtC6VYbu B1CrwvN4STKhiFUc MCIocPAYkA5qmlxre6qq eyzeJzPuGSYmFHl8AYn3 AJXoaCycLsVcENY4TcH6 UZT8tZRjnD3boZgr azmayV9cMqn+CYU1pJTj pLJMQR5vJjesgOP+PHRk LTD5rMhmQMrsLTVbaL4h PTBxJ1v7VqCsDqI0 KKqyI7PsxdA7XNNcxRBd UCRblJCVmA6tuixiz2cp bshqQzSfWHHpSWn0VEt9 LWFsaWduOiBsZWZ0 VjO0VVQ7vHUikA3bgMom fvyruT2fTuc+QmlydGgg TVZ9LDq8K7BlFob9RHIo oNxhYV0kbACnXItl Xz0wvHeufXfjII8iHGPo dsqnl114BkRyb6fbDUOh bKIaHQtfXQK6I54qd0S3 KATqAHWuMXX4xTN9 mS8vpNyakecmiGZerHmu qeWhtLpuMDiuVGcaX464 FONqrVrhBfKuQHm7P1Tc Gfi4PSJwqZszOX8m wWDjMLexCg1ncYyroDck HW3fHKSmrsubq412YxYx l2tzMTYcyJNmXNkpBLN3 H33fx4P0SZClBFUv TXW9uAO6dY0ciItypyjn bGVmdDsgdmVydGljYWwt ERkyU944RANbsJeyCnMw gZk2L5GcNyi7MEIw aJnyAM9utWTbLRptWe2s kBhwmGpjKK9jCKCgozif l854GbUux3glDLCbfRUw MCwnJYO1O56am7G8 DIKxLDMzPKG8xQE9kY0m bGlnbjogbGVmdDsgdmVy dKgkWRzhBVbgB945QUMt cDsnPlBhdGllbnQg MQmmHTd5U8ChHgheqGT+ CV41AXZtIK92lZOgqMXm c7iojNb7TeJhNKQmIUO8 nMneOLjre9ToIZGv P55lhBFff5R4TWDnmUin fEQeRqUjuXP1iC0sXYsf xkovi5sbpqmjNszat3ob ej18oF78K74tEQqz ZHRoPSIzMCUiIHZhbGln st6nvE5yJn9+PGNvbCB3 nNH4zX7mKKHwXnQ3LGjq R563MzYbkPVmCmeb x8fup6pgyBf0GrH2PWVc jpPbwYriUXU5o3PoCb36 P66gAAtuRPXaRQYxRVBq PXMtkCtdcl3bfY4n Ii8+FUJzjMJ6oRW6zR5p ZxAfPpT4NTqeL491TvFe xBRnLbycA44xQ8NaxPW+ LZLrYiw6SGDsuFsi CO0urRUbLTlsAu6pKYT8 ZgDvTzSlUZmfZ1BrEYCe hnnzgjnmcJF7HZUhBYCv tB85Rb7urGggJKPd wTCElS4ehqdeq7wjowyn GeNdWKXtDHy0SPe1MQYi tNuoOhTmXXA3OdQ4PKV0 tSCopQ5yfXugmwfi uC5rD1BzRQHrgzzsHw16 yK7kGnXjIjD5TMtpEyz+ I8PBRibmIE6YM2gFEJis SzwvdGQ+PHRkIHN0 wPzhPXprUCXnrV9qMGKf E3n3BeGmPzY5SCojF7Qz ISKfrjbqMp51vR1fPhOy ZiO3JDmkF7YggxE3 FIGlgXUeTZhdZWY3V96n t8Z3TFTgAPNjDGE7pBK3 oE0vqXkjynsbkPPubLut dmVydGljYWwtYWxp P538CQAiqQcsIhVxWxG5 OmW9BjE7E8XkGoe8LKAj nGqnMT1orWKqBSzhRf5d rFyyoNbqDB4lRNAw mitaBJQinK7aTPHwaMFh wLpuPK0nFSLuvwaud600 GjVzWVQ6XBCemXUsS9Es uD2mNjQoEHArNIFq T6VqkPSkHJcoU049EKbo VlJ2UHIwlcGfV5JeSBBi yUnvYiV8z8O7Pc45ZLAN ZWFyczwvdGQ+PHRk AJH1iTglAOdjCVZtlX6b HUSlA5i9KzQtOvI5NAwj E4CmRVFvjdzmWj08iO6c AvJhPuC3RFsfK2Ux cuS4RLZrnLGpIBcfCSG8 V85cr9N1NKTbRUZoQCB9 gPL4hQ2uhCyfqufwoJCj dDsgdmVydGljYWwt XDhtB353BUPraSftWq2I LBQ8H9YkIvq1VQXmwBgj MJ8hkRWaKCxlNx0phNly wToeSP8cCSBriqql PJTxaQ0lOVOygEDavNgm QS6aEFXzsixjc937BqXt IPL7AVKrpVNpW4UbpL7f FtEyRGXqZFUyO2Sb kHHzBYdqS228WNvfZgO7 DKCnvcXjN1SbUKKxbIya DfE2b5L4Ab4OKSwdnEQ+ BH91pg23M6VjWsoa Znu6CTYcGDH1bVH5jY6a MKJjRKmkb1J4pIS9I0Yr hxXmja1yj7aqRIHkDFny Z83ndOZnq3M5HZFl oGU6IHYkxKdhWkFsvE67 Oyc+JXGuqGfty7JuZcsy a1xga7raxYl8SkJtIJSd udOoqIteAAH7h9Kn Rj50A27jGZbxPFSoYDTr IQUnYAIxyRlefg0pkA6s Ii8+AGKqyZN6kQI5bR0u EiZyOaO2OFjhH931 FzXsxRZsQuwlt8uir6fx qPt8EcYvMSTlbgBtoDom DXV5u3OkEr47J9DzwDfc r2FjFqy8wy12xDOg z7M2nMJ5C3IcHUGabhtp iSMllNxuIN3mBIEvkmsq JZDsyC7dUYImJ1u6KkGw WjO1KNqqM1IxtoD2 KSQirQIeLXRutGJHwM2x jyupo8yjapeiBhJmWXDj EBw7SAd7FEWerKthGqFt NZY6HvV4OWL9mFLz oY4hlFcujdpmjH7zDnr+ WFv5v7gwoZRrHO9wtYG5 DU13UX50vBWim4V7vOV7 D7NgIXXdhfhlkdqp vIS2QYSjAWKkdL62Sm2b hFyxEf7qTLGtWYC6YEXv kHEsU8HtcA4pOtLzLMEw YFUhT0EojABnDJwl R985VNasHrP9LPEgziAq D2QpASQowVahEjP0f8P2 Qi2KDX98GD30HL89mOZa i4S8yGF5A3LuUXXm anosjzvyfXC6ZISdTFJu zX46Ad0obUvoNv2xHMKe YMG7RIQevUIoN7SvlM9h EnZcDAZwERObV0Wk pLDbKUfxH722YJulSpA5 RKIbcnAeG9YgFWLwbBie XwM8k8D1Bu0ISr93XO22 OI25zVWxg7A5xOY8 U7YlVEQkbelxxswjnQK1 XUQcRKPkrU20Oq1idGfh Cw5lBVFtSSQ4QBFjkRDi N4MipY0eXeVgFMYk GHIzD3ObwFBwTRbwT578 QQogRsI6IKClayQlZ0Ko YKNtxEoiXlH3a5S0Bi6V ZLehxmc4H0IcFnsp dHI+WC31IZJrIO75iEXo oTLhf5smyMv3LwOgPQVb UXY6yJbfWYpbh5KfBHWz R45pcEAmq1J0JQDn bGx (more content not included)... [facility] Coding Summary HTMLBase 64 ZbdfdtnyARp0pTw+PGhl YWQ+KD8BLUSsW06zoZBa oI3lF1NENWyKEgwaTRWY QNdZQtDadqOxJK1hlKYc ZXJu IC8+FJ8mURMkElfqnDZb l5B1jHR7S92odx0fDZlu oKG0ZNXtRgKgpxawg8ex tIj7URjbMkchSqGl DSYuoP02XUG1sD69Ic56 ySWtuSFxx1amwGm7AkJo ZKBfOGI8uPmqXZfxu3Lx WCQfM17ptFGsx5N2 IGNvbGxhcHNlOyBlbXB0 cZ5vLPcoqnzry4hyzopy Nqs8qe22qMOkr2U9yXA8 V1OsxoG5XABnpJSd EucbvLFNaC9qoezer9jg pfzeMuNhZDRkWUy6ZWt5 PXScnAakQgAzRB33VAX5 AMTnbsCpM0UyNOVb nNwpWyT8v0J0Og6ZO3FQ NuuoG3CVFTDFICwpwFQ+ DD74nd35E8ZrWwfgZdw1 SYBiLVJ9xGS6sG7s HHYhZEypg6J3pJC5M4Dp rwEoap1ke0smSMPvBShv G51whINsy3J2CLDrkWQ2 AQFgoLagVgZjqZ23 Oyc+UOGuhQjft5AtOdqp s5len8qhnHa6KrdsBVYa zkRxrDbfCCN8b3OlLg2m JOFseOL2wXP7qF5z YbKiNqA6ZNocH209PaEz mBLnIsunE60oW6KvyXE+ DLGiSzv1PVVnoZklZB6u I8YfMIKszmtmsLYb rKovQR0jDMPxytgeTCOb kJ6jEJEqP4f2GzDiQmS1 ZDyzO9UoXEMtiqlhBr14 mC7jPyToDqP1ZEgo H8EydzA5ULOcxNUvJXcf LVC4R46xs7W3QMNtETSi KLT8fBF1cW9xzPyosnxs bGVmdDsgdmVydGlj QCdeUCriG261BDOgmMwl PkNvZGluZyBEYXRlOiAg MDMvMTMvMjAyNDwvdGQ+ KAAbQWM5xAtcNFMt pWIvCSctUp7bxHumtOfk HC3wMUGsicolNHLmbJ4n FMKjoKFgkBibFH2iBABk qxseu276GqQuAEJ3 XEKylTCkB1LjlS8qRfYw QOTfFWPdK5UzgYVjKFmz M040OBlyHdE0AZTgsfJe L1YsNJUdfPheSxI0 v5P6Sy8Ay6UclphdO0Mn iGVvAhOuLvwyFQr7Q7Qy PjwvdHI+CG18OUToRT33 IEo0VNE5xKdxDCdj WKQsG1XedI1aFyGsOIRd ZGRkOyc+PHRhYmxlIHdp ZHRoPScxMDAlJyBzdHls GJ1eQw7rVCZkUGFf kPutrQEtHoVjq5trYLEa HGxgSB1mkKumW5ZudLB3 OZBbu0l0Ro33G02pB7Wk dXA+BDUmqAE9eQB9 hA5kVxXfJjJ7RBpoG050 NhHmtHCvMigyn2dcf5wq kPy8PfZ4UNLstuTfrXyt OZY1f5DpUw35I88w IHdpZHRoPSIxNSUiIHZh lAvvvd5lbW0eNi5+PGNv mWT2fUF5zO9wQyZyHuJ3 MIznF468FnMczQGa Hiigr5xme6nunEi6OwLg XPYhfuKiyEprNOP4k6Mr Wq96A6RjbWlmv0ThIrl2 ez22fJGmq7C0tBO2 R5QqPNPvkzsyeEYbaRti AE6eTDGdvrooYZJdtR8e MHOxX4g0LjXcYtY5UYsn Z0PbqfJ7IQSbeUVs UVNbfIVEcV7fovjle5bt rbjdMyMbZPXwFWm2BZf4 NZDznMbhPmKtVTT4UxD7 ZOL4cFJumJ8vjVvo akhgfK4uWjp+KEH8mBRf aDJPRL6bCrppqMB+PHRk OHC3pXznFQvnRAXdbS3x BXYjP1r3TiNbUqB3 DVxnX9SjvdO2WKJxjBMv CSQpeZFKtG8iunjjt8pc rnppRbRqLIDyYTa6BKu2 LWFsaWduOiBsZWZ0 GjX4YQQ9iJMdlA0osUfi mmkjjB2iZwe+QmlydGgg SJN3SFw3A3ZqNzz3XMPc tRznGQ1cmVDhOLys Ev6knAcatUtkHP8aYKXs uikhu445IoPmu5upYSSs wAJrDUvaPZW9M33tf6U3 ELGnVVZeCKL1xHU2 aJ7sqSkrfdkhnKRurUyt gyFmeNqpERyoPDdrV105 ZADweIjmZxMlWUd7L1Vs Xpi0GOEafCfaSQ7x oMQtWIuiUn1bgDsksPil KK4pNVBmeikhc712WdQx i5nfRWSpsRQaGAjfKHQ5 Z17gw2L9KALtGUJn TJB7hGO0pN6bdVjiynij bGVmdDsgdmVydGljYWwt QDvpF615WUMtdIwuQuQr pEz8B3VbZpb1AWCm hNgzJC5hcDVwPLagZi5g iPogtRxpBD9iNLTysgpu a757WoQcr2bbOTSbcJAd UKyyYHA3M32jx9X9 PGGwVVYtASU4hKI1vU4v bGlnbjogbGVmdDsgdmVy xQqnTJssASqkJ041HBZd cDsnPlBhdGllbnQg ELmkREj6Q4KnQppinEE+ ER79MYXjLW41bVZbxHXi v5jutUo7TkWpTYNeUPE4 tHfpUYieo4AtPRCm F38ubFQhn3N6NGHdeLzu rDWlCeFllWK5xC4dVUhn dyzsu9qodvdhMosfv1dl pq30iP96M65wOHwo ZHRoPSIzMCUiIHZhbGln ea4srU5zXv3+PGNvbCB3 bZY4aS5oKWOmLcY0KNml R980UeQzrOUlIqcn c7kht9zhaRk4HvK4NOUk ywKphAaxWCE2t4OwNn49 N56vAGgwNPJzFVAhONFv OCStzYtnux5azL3p Ii8+JSVjnZW3mHP9lK9c LhFvJuT0VQtxQ677ElLm iQQaIzsdK74sD5RbmBU+ QLRmMid6ETAxaWrh SS3sxRXyWFqzHj6mNCH7 QnXsCgEsPKnhS4OhGEMo ziebjcsttCH9HTJwUCIx hU39Ig6quWhxPHKb cNYCkN5jepmql7sqlgcm ZiZzKSTbIYk7ZXl3NQBh rCjwHzXxMDQ9McV2HFO9 xIOppD0cvBvepexp oP0xE8ZpYCYfmwigHx31 oR2sFkFkJwO5DQcfAov+ D0ZJFwjbPM9DG5lALQgg SzwvdGQ+PHRkIHN0 nKiyCMnbELCxkN6bARIa I4l8VgPqEoX6EHucZ8Qy IJIriaktEb96tX1zDzYd ZbF2MTktO1UdvsY7 KQVczXHzRLsrKPA9O01w w0S4BSFrVLMwTTE2rJE4 uT0fnGyoclklvOYdfLbc dmVydGljYWwtYWxp W469ZGMoeFllTkNiSxH8 NsY2UwC1C6IvFsi4AQNu bTxdJC5mkTYpWPanFa6o zRgqlBzoVX1kIUWp bpitDYDgwD2mWDLfoKQy kJgvZS2bTSSucsvxo988 ObSbXKF3EGMpqPTrR3Hy iM8wDuFvYBNxSSYh S8KkkAOhMWutF635NCcf ZnI3EBOqsnCgY4BsYHHf kDymAaU9q1V7Vg66JWPQ ZWFyczwvdGQ+PHRk ZBC6dToiYRobSAJlnZ6u KIVkM6j0RpByQeF2RAve D9ToKTSatpxhHv51hR5m QlViAcI0DWhrI4Cr icS4FVFntMOwJLdqIDG0 I29po0N4ZKRwUTKcEAA7 rKK5zK3elTyactarpITn dDsgdmVydGljYWwt GFtvU789DMBlyKuxHm6X MKM3H7XvFnz2NLHwkOcu AD8glZZiVHyeYg6udJne cLkoKI9xNIKikhkd PDHjaC5lSTRrkGIvuUid VL0iWBTyoyaib372JnIa QUA2EZLlaSMgN4XioC7p TdCmYUIuKACcJ0Ee aPFeEIuzL695WGfmGpF8 JBRuwnYbI3UsIPWdySvw OaM9q3C7Jd0AMEryxUC+ UK16os71H9AfRzfx Voy3AGNiQEV3rII2sP1l SYMkROomz3R0qTU4P4Od xmHega2qw0ogUADlCJsv M82qaXIvc2N6WPVv nHB2RXJvaCfhDlFajV74 Oyc+AZWswSftm9XrYeel w1brp0iuiIf6MeVyZEVi tbHiuQrjZOV4j5Mt Jz77L96vLZwmPHEpNKKn GRPzDXDdtLjyjq0ikZ2s Ii8+TSLnwIE0pOA4zL1w QrIbBmS2NAeeJ424 HsBakKItEyofb1vso5ak yHq1RxDvCXWbsbRvcDhm EKK0z3WnWy56C5EevCby j7LyFzy3uz53pKPw k6D1tGZ2X2WxFWEififu jCXyzXysRJ7iJKJrykaa TKRntS6dDWYuB7p8DdUf EmZ0XPtiT2FntmC8 BIJroMMuMAJwkWTXyD7d fkgez9mvqvrvHvYrFNMi CYz7TDz5DHJguPlzLwPd WSC7GpN3FNK3dZFl dX7snTlecoxarM5mHqk+ GDd9q8qahXDxHN8asST1 NK36TL18vTZhs6Y1gWP3 H7YtAXQehefluknh uRR5SIFaAGQjaH31Jd2p iKuxVg1oWVGhNMN1UGRp fIIlK2VpmZ8cTmWnMRZi KWPzI2HziFAvXPrt X098YBiqWxV7UCVunlGl S1QaBEKqqKqoGyP3b2J8 Zf4AVB12CI23UY41wYIc u5B7gLC7F5OiXRDv ineafgiduTJ9VKMdZVMt sL28Io9uhYuwSo6tUQRf BYY3RXXvvYYtZ8NwxO4b LwYnNLSjKCBqY6No wRPoRWczR237VVsgHeE3 DEGxiqNfY7MiRTTjhGsp FmC1c9W1Ve6SKy38AZ95 QA86xLFvy2S1eBG9 O7AsGBDrivlldyowvPA9 PAAyOFObgN17Dm9zdTyj Si7cJJMwBNI7UINtuRUa U3ZynM9fZeKkCTXm MXTxY8XosHYmLFtjH873 MJotUyR6WATryzTwD9Qa KXNruMvlMmV2e1U9Li8O TQaautt6K9GjKpgw dHI+XX06JQGmXC37qMIq iKNav2cewFx7YrNyFLXx YSD3fXcsYYtyu1NuOABk Z67hkZHcz8S9CURc bGx (more content not included)... [facility] Wound Care Noteon 07-15-2023 Wound Care Note [id number]#1 .00[facility] Consent Formson 07-10-2023 Consent Forms [id number]#1 .00[facility] Outside Recordson 07-10-2023 Outside Records [id number] 50#1.00[facility] Coding Summaryon 07-09-2023 Coding Summary HTMLBase 64 OiheuuchMXr2eAy+PGhl YWQ+HV2VFLGzD14ysJHw nK1jG5OKKDdXMqnuOWWQ HHfZNsMralAsZH8pbJVp ZXJu IC8+OU4hHIBaTrzwmDIz a6R2qBL2D54fxk2pEYpj vVU3YOHxQfDkvcyaa6gg sHi7UYpaHrymHiGv WXCdpR47TOS0kS01Gk11 iGNaxHRhi9tylBr5QfKw GVSoMIS5qErvQAhdx9Dj MFUuS25pqKCsy1I7 IGNvbGxhcHNlOyBlbXB0 uW8mDPflzstfk4yxzlyc Cag3my19bOBin3W6qYU6 C1ZtyjA1FYCsbJMd WmkgzUVBdL2ptgdyr7rp hsjwFwVuYZVsNWh6FGq5 JZJwuRjqUjMvTM06YNQ8 TGSavtQbG1ZdEWKv tJijHcJ1d4H0Nh1HF1GC OikdS9EPWLOERWrfvSU+ KP80mh67G8PtLkuuEaj3 DQTrTQM4oIO7nU6a NUGqZKtyp5U8rFY2P5Cy pxCrea9jn6dkKVIrFFuy Z32wkUSrs1T8QTWhiBY7 DALmkExbVuYvxE85 Oyc+IYXfkNhfe8DkZajc s5abr4kyiVs8KfpiAWEy rpNcsLqlNXM2a3DdZy7j EZRgjVN3nFP2hX9q VeQhRdE6YPgfR214HxYz qTBuEfdeZ91zQ7TiuJM+ AYDzOnh9DEOdqMtvZC4e I1QwJBMrbqzqbXZs eVmjNA9dKXHlnojxDNCl yH0jOOWxX6k2FyElJjV0 ENbrV1JfOPNbzrjkMr33 aH8tXpLtZjF9KTlt F2ZfggG2WDQkwSNvTIlg YHR6K71ef0L4XOXwBAHy FBA6bNO5bT3yiFojkinm bGVmdDsgdmVydGlj ZJtoRHfvK813EKGnwZyu PkNvZGluZyBEYXRlOiAg MDMvMDUvMjAyNDwvdGQ+ DEPhJVK1vTqnFXCx rTBaVDfiFr8wvYkqiQlc PN6xRNDltvuhNXZxoW5s SEYmhYJywZwdAD7vVWCo vonpy945SqQdYVM4 XKXswFEhX8OhlB6mKkXb WKRnZPGaG1DvbZDnGZxa A451IGizYrN6UAXchsWq I0WzUCPohJcfKxV4 q0L1Xx1Lm6JqanxmX7Ov hSGrEnOtGpwwSSn3B1Da PjwvdHI+JK96BEGmWE67 SYn9PZW1yArbXVot XNLnA4VbqL7vJuJiCHYz ZGRkOyc+PHRhYmxlIHdp ZHRoPScxMDAlJyBzdHls JQ9tGx2iHBUpFEQi fMblpMIwPgMcu7gvZGDa SVycNR2avZyaU7SrhIZ0 WVIyt4h1Ly19M67lH1Ng dXA+MMHrxLQ0dNL7 yE7kDnPyPnS7IHfaS455 HlHytGJfDdrjw4rfr3jo lPf9OtV9SBUsexOxyVun SRL6h4GvRb93A37s IHdpZHRoPSIxNSUiIHZh oUvkic5dlD2kJy0+PGNv rJH5xNT8dN6fCzXdIcA8 GUstJ076TjAnhDZv Pkfln3ttw3utzPu1OjDx UHAmeaXreUbnCBQ8z5Dq Uk76O5IikMrjw5HdPyu2 ct79qOXoq5Q2lWP5 P6OtEXInrzyjqFLfqFrs GZ1gCBAhmmieDSOznU3g XZAsQ8l2JeSqEtD6YFtm E3IpyoB8LAIkxFCr GRLgxPLIpW1kmbqbi3wj vfqzDhUnSZKiRPa6OLc0 RGNnjThfAlLfEAY0CwI0 IUD7rJSxbK5zmNvs gncddJ9nWke+RGO3aHUs uYJRGP5yOxwrxMQ+PHRk SPU8oXajAMcjEVJteX7y ZKKnI8v3BpVlFgT3 ALosL2QkbbN9CYOpiOHg MMZzvZDRhK5fceixs2xi stxvJrFlIGKjYJj5KXj4 LWFsaWduOiBsZWZ0 MwJ1WYR4nNYnxK7kcMxi tqmbxL2jQbu+QmlydGgg PBS0HUa9P6RtDtb9EAKl nZhjDO8fcOZnQWhk Tj2xfQqzcOpnMB4oOZLa stxje271QpYiu2wuLPRo kCGgMZpvKFW0S01gm3B6 CJTdYYSvKNZ3gIV5 hA6uoCwyztmpmNPaqFub dfRcbZjwWHcrFYgcZ211 ZKFoeYowXlXpQTk5T3Gq Lul3EGEduEqnCT0c pQQcPQnfIq9rpFnvrXvg EZ7wASZswxjhb798IfPh t1tnOLQcgVKtVEyzPEO3 C96dp8G8SMLbMJTe HPT9xRL7cS7biTkrltgv bGVmdDsgdmVydGljYWwt UGouY594VBLdlYskGhAv eFw5Y9RsLle0SZRi sXddAK7tyZVbBRyzLr5e bWhiaIpsXY5cIOUwamym b618WgTzn3gtSSMdcIEb OQblOUA2K43sh0H9 DFYlPZPyGNH8iOH8wR4t bGlnbjogbGVmdDsgdmVy fDxcSIkcMGghU369WBHw cDsnPlBhdGllbnQg RPmxQIf5N3WaBxxnfFH+ NT84WHOlWX62ySUnhJYy l9wiiVq2OpMqNSLfENR5 fCpnZRzwj0MeJKRx T59vvTRkw6Y7FMTwrPau pCFgIxMqyTU7wZ7bDIfj spewe3jltewnAjedd7ti of51hS87U63zDHfu ZHRoPSIzMCUiIHZhbGln jj6nyY6fSq7+PGNvbCB3 cDI6bZ4pTHCqZxF3CXzf L986QtZeuNKvQfmb n5noo5cgcIb6QeC4XSNp zbJqgHifYNZ7x6LuIr89 L84jSZlcCYFgCYUkYBKf MHNkpQvmah6idR2m Ii8+NSIgcTF8cLQ2sL6d TiUiFqJ2YDowY534JtUt oMCrXcrjT72qJ4XmpGY+ ANSzYlm6KJTxxZoq SC5gqEIdYPpdTw8nDHX5 HlYvHnGiQBwyB6JrMVMf brxoasdwgTM9LCAsESWw mP24Wg3hkWzyPIXx gLOHgP0htsdgk1dqgtcx IjRnBYZdUNg1KOy4OTSr bVvjPoOhUEC3GaY0MQT6 bAFbeI7xtTffmbxg jC6sY8FoMGBbioxlAg00 oH8oWyAkDbE2WQpzXul+ X1ORBfhaNZ5HY9xHOJju SzwvdGQ+PHRkIHN0 qNodBZdsLQAoaZ8fWBTx W5x8UcWeLdQ3DPllT1Li YGDaehvrRa11aU6dXmLq IaL0KYqfC1CqdmZ1 WXVaiWJhDZgpPDM9W05b v6L8YKDzOMEnKFL9hUR8 wV4piVzkvvsxrRKbrUcj dmVydGljYWwtYWxp I320KXOvdHpuSeIkHfE9 GlE4HqH4F4GqXeu0WZZf sRvaGU1pqULpEUynKr5w kKjutVvbIU4fYUIn ardxAYStuF8lHQHjcLMh rNgxXC6xGGTezeome715 XdJoEDV2HCPyrCZxY7Yu lL7sHsPjPUEsISTx A0HhoNVfYFesH040UUxy MtO1ENGbbcJwE4WkKLCh qMbnMkN4w2K0Da92OEKM ZWFyczwvdGQ+PHRk SCK6jPuzLFabOWEzcF1b VSFfC5a6LpHgUjH4XVno F3DqNKCwgsacKj58nS5z UgFxCgT9LUweE0Gt rmP7MNQulTPbRIkbPRK7 A87ze1P6HKJeQTGcQUU4 gKR4mX4phIlzaysdzAYf dDsgdmVydGljYWwt BPcaZ828TBOeiOetKj7D AVZ1F8AkYju5EBBeaIwe EL8diEVeXVneXq3ejDpo eWqgIX3sXSVpxagl SRUaqW4mLQXvqPDkmRcj WD4eIWGzgirhi795RlUw UEU1PIRllVApU3NecH4r YcCvTQIfETXbX0Ta wGCwVTpjX096QGrrMjB6 HIVsuoTsT4JiILMdeAha UbU9x0B4Vw5SNNxhfVQ+ CM10uf58O0HlWnhl Gpq9GVPnSGN9kSI0kQ9q ZYBvLIwjb9I2bIW8C6Pv naHpuk1ec8cbQUIqILfd X57pvANkq6C7WFNk lJF0EVBwsIueEmVppC70 Oyc+MRSbiQwod4FeQouy v8nng2ubuXu8YuHrDMYw roYjpWnbLUQ4q4Wh Nq01O17yUFxqDPFpXLQf DAJaEDBrnMnewf2zrY7c Ii8+JOLywGY2dUS2dM6j HlIsBjP8QEhlG032 QjOcsPObTfpla9pbc4yr gLl2JrEbIFFxzdBezXzf BKZ2r6DsMs37E3KeyLxk u3NcYha9ye52wCKe j0Q4vLU3H5MgPBDvpgch aHGydNrvUM7yGVYixybc LUPyyI2nLXPcD9n4IpVa XwW3LTvmP1SjthC9 RWQflUYtYUKdrZLFtE8q smyfa1eqzlrwVyZnNFFl IYx6SOe4WXLstAcyQtAa TSH6MfN7TXQ8xLCe nB6wjPvvosbqoT4xTda+ NPn1l1xgjCRaCG0gjCC9 XA21AD66cAEqi3M5sOW9 H0AyVBWdbsvcioor uGR4EFKtFRGzwJ45Ax6q qNgaDk1tOYKpPBC4PLHp bSQdC9DdlA8zDoGgKSGs AMKwJ4FbaOMxPAfj U974JZcdRjO1MJTbnxXp D8DzFIAicVseTkL6u7T2 Km8RNC71VE16AY07tZRd k4Z2bON3H9RvYJYn xtbqyhpibGD1PSVsMSFw bG87Yw5agYzwFp6xCDNu NTV3MBNulWTrX1GzkH9v RrGlZVDvCEJdA9Bz zERmCRtdS198YJhkBaE7 BRUhxvFlW3IrZYBzpOnm KcO2r9N9Bz6EGu71ZZ88 XJ14rYRdt6A7gUV6 K2UeKULfzeddxntjrCO5 UQDxBIWjpD50Lu5wfQfr Pc9gQPIhWAN5FPOuxHOz Q5MaiW0kYyUfQZUc PHKpW9XkxMMuPIqvN439 AUvqTdM3KLKqnbLtY3Eu XWWtjPkpOuZ5u2G8Ta4J VUwkqzb0O1DxIynu dHI+HR44YDTlAX21vVSj fABcb6oelRb5HdIbGNUh GCZ2yCkwUTust6XiWERp I43irQQlj7N8ZZZd bGx (more content not included)... [facility] W[facility] Care Noteon 07-08-2023 Wound Care Note [id number]# 1.00OTGTIFF [facility] Wound Cultureon 07-03-2023 Wound Culture rt KAREN becerra, 07-01-23, 15:40 Heavy growth of Staphylococcus aureus [...] <=0.5/9.5 Verified Vanc S 2 Verified Normal [facility] Comment on above: Performed By: #### 6 [id number] ####[facility] (DEFAULT)[address] [place] [address] Ambulatory Patient Summaryon 06-26-2023 Ambulatory Patient Summary [address], [address] - Visit Summary For YRN RICARDO Age: 63 years Sex: MALE : 1960 Address: [address] [place] [address] [address] [facility] [place], [place], [facility] Home: Work: -- Primary Care Provider: KAREN ZAPATA, LESLY To Race: White Ethnicity: Not or Language: Czech Health Plan: 1?MEDICARE [facility], 2?MEDICAID [place] [facility], 3?MEDICAID [place] [place] Reason for Visit: Three month follow up for med refills Prescription Information: If you have been given a prescription for narcotics, seek immediate medical attention if you have any difficulty breathing or any sudden status changes such as confusion and sleepiness. If you or anyone you know is experiencing suicidal thoughts, mental health, alcohol and/or drug addiction problems; contact the [facility] 26/11 Crisis Hotline -Text 4HOPE to [phone]. Follow-Up Information With: Address: When: KAREN ZAPATA, LESLY To [facility] [address] [place] [address]/[address] [place] [address] In 3 months Future Appointments [facility] Appt. Date: 09/25/2023 1:00 PM Scheduled Provider: Lesly Melchor MD [address] [place] [address] [place], [address] Future Orders No future orders Additional Goals [...] Dosin.000 kg Body Mass Index: 50.14 kg/m2 [place] Body Weight Calculated: 84.047 kg BSA Measured: [...] MOUTH ONCE DAILY nebulizer machine ([facility]) 0 refills authorized Instructions: one [...] is caused (more content not included)... Normal [facility] Patient Handouton 06-26-2023 Patient Handout Infectious Disease [...] and keep track of them. ? Take tyzt-zsn-rxuxkwh and prescription medicines only as told by your health care provider. ? If you were prescribed an antibiotic medicine, take or apply it as told by your health care provider. Do not stop (more content not included)... [facility] Outside Recordson 05-15-2023 Outside Records [id number] #1.00OTGTIFF [facility] Device InterrogationOrdered By: Rosalind Murrieta on 05-14-2023 [facility] Radiology Study observation (narrative) [facility] Ambulatory Patient Summaryon 03-26-2023 Ambulatory Patient Summary [address], [address] - Visit Summary For YRN RICARDO Age: 62 years Sex: MALE : 1960 Address: [address] [place] [address], [facility] Home: Work: -- Primary Care Provider: LESLY MELCHOR MD Race: White Ethnicity: Not or Language: Czech Health Plan: 1?[facility]ICARE [facility], 2?MEDICAID [place] [facility], 3?MEDICAID [place] [facility] Reason for Visit: Three month follow up for weight loss and back pain Prescription Information: If you have been given a prescription for narcotics, seek immediate medical attention if you have any difficulty breathing or any sudden status changes such as confusion and sleepiness. If you or anyone you know is experiencing suicidal thoughts, mental health, alcohol and/or drug addiction problems; contact the [facility] 26/11 Crisis Hotline -Text 4HNEH to [phone]. Follow-Up Information With: Address: When: KAREN ZAPATA, LESLY To [facility] [address] [place] [address]/ [address] [place] [address] In 3 months Future Appointments [facility] Appt. Date: 06/26/2023 9:30 AM Scheduled Provider: Lesly Melchor MD [address] [place] [address] [place], [address] Future Orders No future orders Additional Goals [...] 3 m2 Body Mass Index: 47.09 kg/m2 [place] Body Weight Calculated: 84.047 kg BSA Measured: [...] day anxiety, 0 refills authorized nebulizer machine ([facility]) 0 refills authorized Instructions: one [...] BMI? Body mas (more content not included)... [facility] Patient Handouton 03-26-2023 Patient Handout Nutrition BMI [...] numbers. This can be done either in [place] ([place] or metric measurements. Note that charts and online BMI calculators are available to help you find your BMI quickly and easily without having to do these calculations yourself. To calculate your BMI in [place] ([place].) measurements: 1. Measure your weight in [...] for Disease Control and Prevention: www.cdc.gov ? [place] Heart Association: www.heart.org ? National Heart, Lung, and Blood [place]: www.nhlbi.nih.gov Summary ? Body mass index (BMI) is a number that is calculated from a person's weight and height. ? BMI may help estimate how much of a person's weight is composed of fat. BMI can help identify those who may be at higher risk for certain medical problems. ? BMI can be measured using [place] measurements or metric measurements. ? BMI charts are used to identify whether you are underweight, normal weight, overweight, or obese. This information is not intended to replace advice given to you by your health care provider. Make sure you discuss any questions you have with your health care provider. Document Revised: 01/13/2020 Document Reviewed: 11/20/2019 Elsevier Patient Education ? 2022 Med[employer]. [facility] Outside Recordson 03-25-2023 Outside Records [id number] [facility]-18-2023 Outside Records [id number] #[facility] 03-13-2023 Outside Records [id number] #[facility] 02-11-2023 Outside Records [id number]# 1.00[facility] Patient Summaryon 12-21-2022 Ambulatory Patient Summary [address], [address] - Visit Summary For YRN RICARDO Age: 62 years Sex: MALE : 1960 Address: [address] [place] [address] [address] [facility] [place], [place], [facility] Home: Work: -- Primary Care Provider: LESLY MELCHOR MD Race: White Ethnicity: Not or Language: Czech Health Plan: 1?MEDICARE [facility], 2?MEDICAID [place] [facility], 3?MEDICAID [facility] [place] Reason for Visit: 3 mon f/u Prescription Information: If you have been given a prescription for narcotics, seek immediate medical attention if you have any difficulty breathing or any sudden status changes such as confusion and sleepiness. If you or anyone you know is experiencing suicidal thoughts, mental health, alcohol and/or drug addiction problems; contact the [facility] 26/11 Crisis Hotline -Text 4HOPE to [phone]. Follow-Up Information With: Address: When: LESLY MELCHOR MD [facility] [address] [place] [address] [place] [address] In 3 months Future Appointments [facility] Appt. Date: 03/26/2023 10:00 AM Scheduled Provider: Lesly Melchor MD [address] [place] [address] [place], [address] Future Orders No future orders Additional Goals [...] 371.897 lb Body Mass Index: 46.73 kg/m2 [place] Body Weight Calculated: 84.047 kg BSA Measured: [...] day anxiety, 0 refills authorized nebulizer machine ([facility]) 0 refills authorized Instructions: one machine to use with nebules Outpatient [facility] ([facility]) 0 refills authorized Instructions: Wound clinic. [...] to displa (more content not included)... Normal [facility] Patient Handouton 12-21-2022 Patient Handout Orthopedics Osteoarthritis [...] walking or exercising. ? An inability to crochet beader items, twist your hand(s), or control the [...] aerobics, that increase your heart rate. ? Zxvkk-zo-amddrq activities. These help your joints move more [...] above the (more content not included)... Normal [facility] Coding Summaryon 12-18-2022 Coding Summary HTMLBase 64 RbaqemxhHZh6eBc+PGhl YWQ+GU1VPUOzL02ybRUh fJ7jE3JEKXsNQvggZHWB LKjNBwOiqdVrYJ8qcAVx ZXJu IC8+SJ7xWHGaFrfapGZn w4Z5dAT7G63zrj1hWKdc vSD4DSPiPxMxrppbo8at oRi2TRqdZljbJeSu LOMcdH80AFE3xI07Cj75 uXYjjARff7mwxKg9FlLd XYPvZMD3sOndALrat8Aw RMZxK50bkGCob8R0 IGNvbGxhcHNlOyBlbXB0 fY4uCZyinusvh4jzvtrv Tev0ay38nTCbi1I7oKB5 O6QwijZ6PZNkxJFp WswpaTWSsH9hvmsbj9et jbvhQeMlJOTbDCu9JQb5 PEZhnNjdPqPaVT78MOK0 YVRrcjRdA0RfCDZt pRixVhD9o6F4Km9KI2WK BzcoD9ZUMLLVDIwslFJ+ IM78nl25A0UvQqffSxm8 XYNlYFV8hZV8jJ6w APVqJNedj0T5xOW5N0Om fpFnoh8ye8ygOYDpPPuw M99glDCiu6P8KCDwjXQ5 HGVfqWaxCsQalQ04 Oyc+TSEfbWcqt0TnMbot u2mzg3mstDv5NrdwHFFc hxOftDjyLJN5p3JsGt0p CEVuaUK1aND8fU3l YeUkWaX7STfpG618LqBh jQTqUrgcR85iS5TybHJ+ UPXrYsw0VHVwdXwoRU4l E0JmETRjkupwsZCy qRbxEW7vZBLshfmdGFCq qR5cPSYcO7f0WnYqCqV8 QLrbI6RbSNXpnxorUu21 jT6oFiRnZpL2VYjj V2MxhpZ9QWLkwPBwUCak REM8K45lz9L1VJYqBUGc LBF6rPQ9vX0ofZxlwqcf bGVmdDsgdmVydGlj FAewWEwuD142ZZTezHhi PkNvZGluZyBEYXRlOiAg MDgvMTUvMjAyMzwvdGQ+ VPSrBOU2pVefQYFx oWTuVJvxRy5boSwzjMgg PC7vZZKcganjVDEwaQ7z SWZrgHWmwUfdZK5kQRJh qojqu750EkScZDP3 FILwbMKvE3XucV0vHiJu YWIqGNVbL6DtbOFcFKjs L484MLemGyR8RGYkvqVe G0WlMAGudRqmVoU9 g9U8Co9Dn7MjcllqM7Dt gNVcKzUaXroyRHh2E6Zx PjwvdHI+ST82IKWjWK46 IRw1FMM0yTwwINci XISbF6RewQ6uDnVtGWSs ZGRkOyc+PHRhYmxlIHdp ZHRoPScxMDAlJyBzdHls CV1pSs6zRYDsLVFc zGrszGQsBaPpj2fxQDVz CRdnVV7upQarX9KvvTE6 CUPem3w0Ke78X05tW4Ln dXA+SZExfXT0qVQ7 sH4hEtPjQpG6ZXukF540 SmDccLIrXlpfk5njo7em uHe6FsU1WMCscvKhlPtg NOM1z1DlXa61C03l IHdpZHRoPSIxNSUiIHZh mOimhd6aoJ3rGd1+PGNv eIA9mCY7vQ2zYrAvAeW5 AKbsS920IbPomDKl Wkgko5cfn4uroCm1DrWr ZGKbgtWroLsgILY9z8Dp Vq56G7FdjVyox2KzCwd3 ug64ySNaz8Y6vJN9 W2OqXXKwaonrxMOndKxb FR7tBKLxqdygNTLaaM1w RAGaO5a4EwGoCqM7DVlf C3EewuW3XDQynMVr IFDyvEZKnO2kedjio7eh yeglSkJzHZFfEOt8MNq9 YQCmhMxsCuUmHHF5WiG7 EFF6uOTmyA4onKho ubikkI2dXdm+MWG5oYSs vSRKWJ9rMqdxcBE+PHRk HRS5dGkzAVzwRQKlhF8h DOQkD3k0IlJbNwM5 OWecM8AxwqI6ZSYagTNs TPVejGYTyQ7epaypx3id ixvlJxQyXGXyEVm8ZYo8 LWFsaWduOiBsZWZ0 IwH5OOQ1gKWopD6jrGaj kkkinU0fUxh+QmlydGgg IRQ2MJs7M6BgVjq8IFYq jWorNA3jdFZpHGlp Hf5exBhjjXmoKB9cUUQr nlbnh903QkZxw2tqHNAy tEAqMKxcEAM3A20dz2K2 ZQIvMOWaPIF6pPC6 yF6wvIzftulbwBYrfBxx uzObbOvxLSspEOrrO842 LNJlaFmtViGrFGv3Q7Kw Paa9OPHniCwhFB5c kKBwJAwyPe2umEcszDtn ZU4uOOWvjdcpt278AxXr b0sqWETnvOXsWGagGQK6 T08oc2O2CPIvFCYt VWD2jGN5gK7ofPdoeqad bGVmdDsgdmVydGljYWwt DUmoM943AKGgsRlgUdNz qRl5N5WbBzq4NCOs qCvpNV7zcIRbVEdnEp2v tFylkOnxSB9cEYMietwc x863TeCzm5aaHCJgbUVw ROnmAPV2U21to6B5 OWRcEUOkDEO1qWX9nU4w bGlnbjogbGVmdDsgdmVy iIpmLEnzRCyeQ272VNUc cDsnPlBhdGllbnQg QVhwFMo2B2PqKuolyEJ+ ZM45QZQwAZ08iWEzdSLc i1keyXt2SwCkJOZqENO6 zMeaCCuqi3KdWPDj B94qdBYmg6X1MMLywVbf xSXaGpTquNA9vH5zHCke jxlzj0agaaexSwnko0lx rh42xW82C35hWObz ZHRoPSIzMCUiIHZhbGln ax1gwX9qKp1+PGNvbCB3 lRZ2qA6sRMLaZaM3NQzi K579BvJpaHFdXksa n4kkv9irwGv1SkB8FXQr mfMfzYehBPF5c9KoLq83 R07hFYaiVILaEVVgRFSk NBCbdJidsl4fxU9k Ii8+SMShhST2eNL6uL1z TwMrNtK8PVvmG371WgRx vTOvVkveP15pK1NpcGT+ UTCmNpk8DRElkYao UF6whDQmAKdtIy7jHHB6 TuYtAiWuBVynY8UsQVOm eueeadfmwLK4KPZfFKUa jW74Og5wjQubFLBa zACYaW0jbklhz5annejj UxTvWDQgYFq6ZDo0DOJy hBtdGlEqZSY8BcN9ZJP7 aCBwwN1gfQguormt zP3qP2SnOPHdkruiOr77 tY3pKgWyNuZ6ASomPhr+ Y1KKUmvsHL1BG9eJBXqp SzwvdGQ+PHRkIHN0 fTisNZbqONMgyU6rSAHa D7p5TiNnVgI3OZkcA2Gh WGEmdqclDi77oC9hWcLm FrY2RGumF9GjxoI8 CCXwrXSnUHluYWY4I91a w1M7TEHuVBHiFFO2lJU4 cB7lrKedsjgxsJMzpUbb dmVydGljYWwtYWxp S707MNYriMitYdTqSzQ4 OyT1YoZ8B0EuTcv0MIWz cMcwJF7mvVPbZGinUz4o vFcpdQlzXL7gHFYm gfuxRHDlhS0cVQXcgPWp oNdhFL5aGMXigwqxn273 EsWmDGG0PEQoyWYyW3Wu eK9gGoKmJXSbGONj E2GjxKAkHVlkT387GXnj YyY4QKYdxqBfY7HaHHQc jVueMzL4s9K9Xl91CFPA ZWFyczwvdGQ+PHRk HPX7nPxdAFbhNZDopG3i XIIjK3d3KjOpIrA9WLlz O7YhDDOvgawgMo68iZ4o HcPrEgI7QIckL4Hk xmE6JLIouBCjXOboHIK6 U78lo9X3XTBlYWGyULM3 mRW5cY6vxDuhjzdmbQWi dDsgdmVydGljYWwt DPjfL790POApwIetSj6A MOE0F0UbMwa5CIDbiIko ZM0znVEyWNioEl4arOgc sSceDD2iLTDlqvjw MFVccB0qVRLarBSqaPbt MV4yIKSjoocqt574YoOo MQK8CJVvuNUiB5SklQ8w SeKwDRQoECJaE8Hd xRAqNGyiL496KQmkPaF6 CJWlftKdX3DeDJOpuFjp XcN0s0J7Ej5FYMunsJH+ IZ91fz61B3NpHvnk Vlm0QLErDQS5eRK3nM8g ASKdBPcnh0T0nFH8E9Dy hfZqsa8vz2tuHVLfPJye P75nhMQkc2G3WHNk cEO1KFDkhUtlWuHmgO50 Oyc+UTXimVdjv6UrApfg m8zqa2fuzDj8JdXaJXZt qpCzdLrjLQY4a0Na Tr50U90nDMhyWJImYWYo KDEfVUMhaXuyhc9hmQ5o Ii8+FZDaiLH7nOF7xQ3l MmDsJoP7VHvsR331 EtKnsWOfAuwnk2ixr5up rCj6NrWcXCKutsElfQfk NGO5s3YlDx72F8KinIeu j0RcTvz6uz12yZAr t0A9vFG3V1ZoBAUdfsme uCJvsDfwIA1cJSNrkzdd KHWhrS0vAIUiB8o4NnZv UkJ7AFmdN0YuzoC3 UFKopASzSHHiyLEDpR5l pnvyo6ggturfAnMoQFYf TTv9IHq8ALKeqHdwRvMx NQE9EbA3XNJ3oGEa yM6ozRimsiycwO4iOpr+ PSd9y0jpmMGvFE7zwNL6 RA16ZH18lDLpg9V5wOQ4 M3BgZMWphjrlmytg kQL3QJXlUJYkgC60Cz4z tRqhMi6aRTVwRLS9CYAl uNQiJ8RshF5rZwVpMPVx TGAtW0RzuTUqPQkt V286TNttNpZ7DZImejPa A5YlINVyuEdzPqY7h4J1 Ib0AVE73NE70ZI78sNHn i1P9eAN5X9ItDAGh cjyfzumvoUT7WGJcIQSq jS42Fx1amShxFx8jPQYu JCE9LXDdyAGyF8WluJ9h GjGxJBMrZBBmV1Dw yUTsLMaqY514OPzdVeL8 OHRovxPhP1AuOAFifBxx ZyX0f6W0Vl4FHq89PZ34 TZ87tXRbt1L2sOD9 N8SvZXCdpoaxxmyelIS0 UCVdOYXqyD33Me2enOuf Sx4pFJZjINQ1FEVoyJBh A6NbvF0iLoEiSFGw YWJwW6NwaDEgWDvuD666 ZUlgNtS9JLFuylSpM6Bi NZAfjQwfKyI9s4M8Ze0V GIybdvf3S9WwEahs dHI+AO78KLZsDP90uTId aWTny0dqaWq2CiOwEZDl ZGY6zWqwVEuol9UqSQPj C62kzVPpl2Y9JXAs bGx (more content not included)... Normal [facility] Standardon 12-13-2022 eGFR Non AA >60 Invalid Interpretation Code [facility] Comment on above: Performed By: #### 1 [id number], [id number], [id number] ####[facility] (DEFAULT)[address] [place] [address]39 eGFR AA >60 Invalid Interpretation Code [facility] Comment on above: Performed By: #### 1 [id number], [id number], [id number] ####[facility] (DEFAULT)[address] [place] [address] 04328 Albumin [Mass/Vol] 3.9 g/dL Normal 3.5-5.0 [facility] Comment on above: Performed By: #### 1 [id number], [id number], [id number] ####[facility] (DEFAULT)[address] [place] [address] 48950 Albumin/Globulin [Mass ratio] 1.0 {ratio} Low 1.4-2.6 [facility] Comment on above: Performed By: #### 1 [id number], [id number], [id number] ####[facility] (DEFAULT)[address] [place] [address] 98564 Alk Phos 84 IU/L Normal 32-91 [facility] Comment on above: Performed By: #### 1 [id number], [id number], [id number] ####[facility] (DEFAULT)[address] [place] [address] 49721 ALT [Catalytic activity/Vol] 22.0 U/L Normal 17.0-63.0 [facility] Comment on above: Performed By: #### 1 [id number], [id number], [id number] ####[facility] (DEFAULT)[address] [place] [address] 83804 Anion gap [Moles/Vol] 9.9 mmol/L Normal 5.0-19.0 [facility] Comment on above: Performed By: #### 1 [id number], [id number], [id number] ####[facility] (DEFAULT)[address] [place] [address] 94791 AST [Catalytic activity/Vol] 31 U/L Normal 15-41 [facility] Comment on above: Performed By: #### 1 [id number], [id number], [id number] ####[facility] (DEFAULT)[address] [place] [address] 40225 Bili Total 0.5 mg/dL Normal 0.3-1.2 [facility] Comment on above: Performed By: #### 1 [id number], [id number], [id number] ####[facility] (DEFAULT)[address] [place] [address] 40988 Calcium [Mass/Vol] 8.6 mg/dL Low 8.9-10.3 [facility] Comment on above: Performed By: #### 1 [id number], [id number], [id number] ####[facility] (DEFAULT)[address] [place] [address] 81946 Chloride [Moles/Vol] 104 mmol/L Normal 101-111 [facility] Comment on above: Performed By: #### 1 [id number], [id number], [id number] ####[facility] (DEFAULT)[address] [place] [address] 47401 CO2 [Moles/Vol] 28 mmol/L Normal 21-32 [facility] Comment on above: Performed By: #### 1 [id number], [id number], [id number] ####[facility] (DEFAULT)[address] [place] [address] 44467 Creatinine [Mass/Vol] 1.07 mg/dL Normal 0.90-1.30 [facility] Comment on above: Performed By: #### 1 [id number], [id number], [id number] ####[facility] (DEFAULT)[address] [place] [address] 57255 Globulin (S) [Mass/Vol] 3.9 g/dL Normal 1.5-4.3 [facility] Comment on above: Performed By: #### 1 [id number], [id number], [id number] ####[facility] (DEFAULT)[address] [place] [address] 41099 Glucose [Mass/Vol] 92.0 mg/dL Normal 74.0-118.0 [facility] Comment on above: Performed By: #### 1 [id number], [id number], [id number] ####[facility] (DEFAULT)[address] [place] [address] 25157 Osmolality 276 mOsm/L Invalid Interpretation Code [facility] Comment on above: Performed By: #### 1 [id number], [id number], [id number] ####[facility] (DEFAULT)[address] [place] [address] 11420 Potassium [Moles/Vol] 3.9 mmol/L Normal 3.6-5.1 [facility] Comment on above: Performed By: #### 1 [id number], [id number], [id number] ####[facility] (DEFAULT)[address] [place] [address] 92411 Protein [Mass/Vol] 7.8 g/dL Normal 6.5-8.1 [facility] Comment on above: Performed By: #### 1 [id number], [id number], [id number] ####[facility] (DEFAULT)[address] [place] [address] 23659 Sodium [Moles/Vol] 138.0 mmol/L Normal 136.0-144.0 [facility] Comment on above: Performed By: #### 1 [id number], [id number], [id number] ####[facility] (DEFAULT)[address] [place] [address] 24788 Urea nitrogen [Mass/Vol] 16 mg/dL Normal 8-26 [facility] Comment on above: Performed By: #### 1 [id number], [id number], [id number] ####[facility] (DEFAULT)[address] [place] [address] Urea nitrogen/Creatinine [Mass ratio] 14.9 mg/mg Normal 4.6-16.2 [facility] Comment on above: Performed By: #### 1 [id number], [id number], [id number] ####[facility] (DEFAULT)[address] [place] [address] Hemogram Standardon 12-14-19 23 Erythrocyte distribution width (RBC) [Ratio] 14.2 % Normal 11.5-15.0 [facility] Comment on above: Performed By: #### 1 [id number], [id number], [id number] ####[facility] (DEFAULT)[address] [place] [address] Hematocrit (Bld) [Volume fraction] 41.9 % Normal 34.8-51.9 [facility] Comment on above: Performed By: #### 1 [id number], [id number], [id number] ####[facility] (DEFAULT)[address] [place] [address] 28149 Hemoglobin (Bld) [Mass/Vol] 14.2 g/dL Normal 11.8-17.7 [facility] Comment on above: Performed By: #### 1 [id number], [id number], [id number] ####[facility] (DEFAULT)[address] [place] [address] 55793 MCH (RBC) [Entitic mass] 32 pg Normal 24-34 [facility] Comment on above: Performed By: #### 1 [id number], [id number], [id number] ####[facility] (DEFAULT)[address] [place] [address] 65713 MCHC (RBC) [Mass/Vol] 34 g/dL Normal 26-37 [facility] Comment on above: Performed By: #### 1 [id number], [id number], [id number] ####[facility] (DEFAULT)[address] [place] [address] 00338 MCV (RBC) [Entitic vol] 93 fL Normal 81-100 [facility] Comment on above: Performed By: #### 1 [id number], [id number], [id number] ####[facility] (DEFAULT)[address] [place] [address] 84831 Platelet 122 x10 Low 138-427 [facility] Comment on above: Performed By: #### 1 [id number], [id number], [id number] ####[facility] (DEFAULT)[address] [place] [address] 10737 Platelet mean volume (Bld) [Entitic vol] 8.0 fL Normal 6.3-10.2 [facility] Comment on above: Performed By: #### 1 [id number], [id number], [id number] ####[facility] (DEFAULT)[address] [place] [address] 87671 RBC 4.50 x10 Normal 3.70-5.30 [facility] Comment on above: Performed By: #### 1 [id number], [id number], [id number] ####[facility] (DEFAULT)[address] [place] [address] 88703 WBC 5.5 x10 Normal 3.5-10.5 [facility] Comment on above: Performed By: #### 1 [id number], [id number], [id number] ####[facility] (DEFAULT)[address] [place] [address] 81241 Lipid Panel Standardon 12-13 Cholesterol [Mass/Vol] 158.0 mg/dL Normal 66.0-200.0 [facility] Comment on above: Performed By: #### 1 [id number], [id number], [id number] ####[facility] (DEFAULT)[address] [place] [address] 28893 Cholesterol in HDL [Mass/Vol] 48 mg/dL Normal 40-71 [facility] Comment on above: Performed By: #### 1 [id number], [id number], [id number] ####[facility] (DEFAULT)[address] [place] [address] 27182 Cholesterol in LDL [Mass/Vol] 98 mg/dL Normal 1-100 [facility] Comment on above: Performed By: #### 1 [id number], [id number], [id number] ####[facility] (DEFAULT)[address] [place] [address] 08045 Cholesterol.total/Choles terol in HDL [Mass ratio] 3.3 {ratio} Normal 0.0-4.5 [facility] Comment on above: Performed By: #### 1 [id number], [id number], [id number] ####[facility] (DEFAULT)[address] [place] [address] 50669 Triglyceride [Mass/Vol] 60.0 mg/dL Normal 0.0-150.0 [facility] Comment on above: Performed By: #### 1 [id number], [id number], [id number] ####[facility] (DEFAULT)[address] [place] [address] 88111 VLDL. 12 mg/dL Normal 5-40 [facility] Comment on above: Performed By: #### 1 [id number], [id number], [id number] ####[facility] (DEFAULT)[address] [place] [address] 88828 Provider Orderson 12-13-2022 Provider Orders [id number] Normal [facility] POC Glucose FingerstickOrder ed By: Serafin Shearer on 06-02-2019 Glucose [Mass/Vol] 70 mg/dL Low 75 - 110 mg/dL [employer] Phone: Interpretation and review of laboratory results Abnormal [employer] Travel Phone: Glucose [Mass/Vol] 74 mg/dL Low 75 - 110 mg/dL [employer] Travel Phone: Interpretation and review of laboratory results Abnormal [employer] Travel Phone: Glucose [Mass/Vol] 64 mg/dL Low 75 - 110 mg/dL [employer] Travel Phone: Interpretation and review of laboratory results Abnormal [employer] Travel Phone: Surgical PathologyOrdered By : Serafin Shearer on 06-02-2019 Surgical Pathology Report [id number] [facility] ANATOMIC PATHOLOGY [address] [place] [address]. [place], [place] [address] SURGICAL PATHOLOGY CONSULTATION Patient Name: YRN RICARDO [facility] Rec: [id number] Path Number: [id number] Collected: 06/01/2019 Received: 06/01/2019 Reported: 06/02/2019 10:13 [...] with no areas of granularity or masses. Floor Technician sections 1cs. tm Microscopic Description Microscopic examination performed. [facility] Work Phone: POC Glucose FingerstickOrder ed By: Serafin Shearer on 06-01-2019 Glucose [Mass/Vol] 91 mg/dL 75 - 110 mg/dL [facility] Work Phone: Glucose [Mass/Vol] 96 mg/dL 75 - 110 mg/dL [employer] Travel Phone: Surgical Pathologyon 020 Surgical Pathology (NOTE) [id number] [facility] ANATOMIC PATHOLOGY [facility]. [place], [place] [address] SURGICAL PATHOLOGY CONSULTATION Patient Name: YRN RICARDO [facility] Rec: [id number] Path Number: [id number] Collected: 06/01/2019 Received: 06/01/2019 Reported: 06/02/2019 10:13 -- Diagnosis -- PORTION OF STOMACH, SLEEVE GASTRECTOMY: MILD CHRONIC INACTIVE GASTRITIS. Lyndsay Wyatt Electronically Signed Out ajb06/02/2019 Clinical Information Pre-op Diagnosis: OBESITY, HYPERTENSION, COPD, [...] with no areas of granularity or masses. Floor Technician sections 1cs. tm Microscopic Description Microscopic examination performed. Normal [facility] Comment on above: Performed By: #### P PPVS #### [facility] [address] [place] [address] [address] Inspector: Karl Klein MD Nicotineon 05-23-2019 4-JG-Sylotcrl 3 ng/mL Normal [facility] Comment on above: Performed By: #### C SYD, PT, BMP #### [facility] [address] [place] [address] [address] Inspector: Karl Klein MD #### ANICOT #### [facility] [address] [place] [address] Highway Inspector: Cameron Calderon MD Cotinine 5 ng/mL [facility] Comment on above: Result Comment: (NOT E) Cotinine is the major metabolite of nicotine and is a biomarker of passive exposure when present at low concentrations. This result may reflect passive exposure to a nicotine-containing product. The half-life of cotinine is approximately 16 hours. Cotinine is metabolized to 5-DW-lrfmphym, which may persist for weeks after cessation from long-term or heavy use of nicotine products. Performed By: #### C BC, PT, BMP #### [facility] [address] [place] [address] [address] Inspector: Karl Klein MD #### ANICOT #### [facility] [address] [place] [address] Highway Inspector: Cameron Calderon MD Nicotine <2 [facility] Comment on above: Result Comment: (NOT [...] positive. Test developed and characteristics determined by [facility]. See Compliance Statement B: [employer]/ Performed by [facility], [address] [place] [id number] [email or web address], Cameron Calderon MD, Lab. Director Performed By: #### C SYD PT, BMP #### [facility] [address] [place] [address] [address] Inspector: Karl Klein MD #### ANICOT #### [facility] [address] [place] [address] [address] Inspector: Cameron Calderon MD Basic Metabolic Profon 05-19 (cont.) [facility] Comment on above: Result Comment: Aver age GFR for 50-59 years old: 93 mL/min/1.73sq m Chronic Kidney Disease: <60 mL/min/1.73sq m Kidney failure: <15 mL/min/1.73sq m eGFR calculated using average adult body mass. Additional eGFR calculator available at: http://www.Wizeline.Branchly/multiple_crcl_2012.htm Performed By: #### C SYD PT, BMP #### [facility] [address] [place] [address] [address] Inspector: Karl Klein MD #### ANICOT #### [facility] [address] [place] [address] Highway Inspector: Cameron Calderon MD Anion gap [Moles/Vol] 14 mmol/L Normal 9-17 [facility] Comment on above: Performed By: #### C BC, PT, BMP #### [facility] [address] [place] [address] [address] Inspector: Karl Klein MD #### ANICOT #### [facility] [address] [place] [address] Highway Inspector: Cameron Calderon MD Calcium [Mass/Vol] 9.7 mg/dL Normal 8.6-10.4 [facility] Comment on above: Performed By: #### Kenrick BC, PT, BMP #### [address] [address] [address] Inspector: Karl Klein MD #### ANICOT #### [facility] [address] [place] [address] Highway Inspector: Cameron Calderon MD Chloride [Moles/Vol] 98 mmol/L Normal 98-107 [facility] Comment on above: Performed By: #### Kenrick BC, PT, BMP #### [address] [address] [address] Inspector: Karl Klein MD #### ANICOT #### [facility] [address] [place] [address] Highway Inspector: Cameron Calderon MD CO2 [Moles/Vol] 25 mmol/L Normal 20-31 [facility] Comment on above: Performed By: #### C BC, PT, BMP #### [facility] [address] [place] [address] [address] Inspector: Karl Klein MD #### ANICOT #### [facility] [address] [place], [place] [id number] Highway Inspector: Cameron Calderon MD Creatinine [Mass/Vol] 1.28 mg/dL High 0.70-1.20 [facility] Comment on above: Performed By: #### C BC, PT, BMP #### [address] [address] [address] Inspector: Karl Klein MD #### ANICOT #### [facility] [address] [place], [place] [id number] Highway Inspector: Cameron Calderon MD GFR, Amer >60 Normal >60 [facility] Comment on above: Performed By: #### C BC, PT, BMP #### [address] [address] [address] Inspector: Karl Klein MD #### ANICOT #### [facility] [address] [place], [place] [id number] Highway Inspector: Cameron Calderon MD GFR,non Amer 58 mL/min Low >60 [facility] Comment on above: Performed By: #### C BC, PT, BMP #### [facility] [address] [place] [address] [address] Inspector: Karl Klein MD #### ANICOT #### [facility] [address] [place], [place] [id number] Highway Inspector: Cameron Calderon MD Glucose [Mass/Vol] 80 mg/dL Normal 70-99 [facility] Comment on above: Performed By: #### C BC, PT, BMP #### [facility] [address] [place] [address] [address] Inspector: Karl Klein MD #### ANICOT #### [facility] [address] [place], [place] [id number] Highway Inspector: Cameron Calderon MD Potassium [Moles/Vol] 4.6 mmol/L Normal 3.7-5.3 [facility] Comment on above: Performed By: #### Kenrick VELARDE PT, BMP #### [facility] [address] [place] [address] [address] Inspector: Karl Klein MD #### ANICOT #### [facility] [address] [place] [address] Highway Inspector: Cameron Calderon MD Sodium [Moles/Vol] 137 mmol/L Normal 135-144 [facility] Comment on above: Performed By: #### Kenrick VELARDE PT, BMP #### [address] [address] [address] Inspector: Karl Klein MD #### ANICOT #### [facility] [address] [place], [place] [id number] Highway Inspector: Cameron Calderon MD Urea nitrogen [Mass/Vol] 23 mg/dL High 6-20 [facility] Comment on above: Performed By: #### Kenrick VELARDE PT, BMP #### [address] [address] [address] Inspector: Karl Klein MD #### ANICOT #### [facility] [address] [place], [place] [id number] Highway Inspector: Cameron Calderon MD BUN/CRE Ratio NOT REPORTED Normal 9-20 [facility] Comment on above: Performed By: #### Kenrick VELARDE PT, BMP #### [address] [address] [address] Inspector: Karl Klein MD #### ANICOT #### [facility] [address] [place] [address] Highway Inspector: Cameron Calderon MD Staging: NOT REPORTED Normal [facility] Comment on above: Performed By: #### C BC, PT, BMP #### [facility] [address] [place] [address] [id number] Inspector: Karl Klein MD #### ANICOT #### [facility] [address] [place] [address] Highway Inspector: Cameron Calderon MD [facility] 05-19-2019 Erythrocyte distribution width (RBC) [Ratio] 16.0 % High 11.8-14.4 [facility] Comment on above: Performed By: #### C BC, PT, BMP #### [phone] Highway Inspector: Karl Klein MD #### ANICOT #### [facility] [address] [place] [address] [id number] Inspector: Cameron Calderon MD Hematocrit (Bld) [Volume fraction] 42.0 % Normal 40.7-50.3 [facility] Comment on above: Performed By: #### C BC, PT, BMP #### [phone] [address] Inspector: Karl Klein MD #### ANICOT #### [facility] [address] [place], [place] [id number] Highway Inspector: Cameron Calderon MD Hemoglobin (Bld) [Mass/Vol] 13.2 g/dL Normal 13.0-17.0 [facility] Comment on above: Performed By: #### C BC, PT, BMP #### [phone] Inspector: Karl Klein MD #### ANICOT #### [facility] [address] [place] [address] Highway Inspector: Cameron Calderon MD MCH (RBC) [Entitic mass] 28.4 pg Normal 25.2-33.5 [facility] Comment on above: Performed By: #### C BC, PT, BMP #### [address] [address] [address] Inspector: Karl Klein MD #### ANICOT #### [facility] [address] [place], [place] [id number] Highway Inspector: Cameron Calderon MD MCHC (RBC) [Mass/Vol] 31.4 g/dL Normal 28.4-34.8 [facility] Comment on above: Performed By: #### C SYD, PT, BMP #### [phone] [address] Inspector: Karl Klein MD #### ANICOT #### [address] [phone] Highway Inspector: Cameron Calderon MD MCV (RBC) [Entitic vol] 90.3 fL Normal 82.6-102.[address] [facility] Comment on above: Performed By: #### C SYD, PT, BMP #### [address] [phone] [address] Inspector: Karl Klein MD #### ANICOT #### [facility] [address] [place], [place] [id number] Highway Inspector: Cameron Calderon MD NRBC Automated 0.0 per 100 WBC Normal 0.0 [facility] Comment on above: Performed By: #### Kenrick VELARDE, PT, BMP #### [phone] [address] Inspector: Karl Klein MD #### ANICOT #### [facility] [address] [place], [place] [id number] Highway Inspector: Cameron Calderon MD Platelet mean volume (Bld) [Entitic vol] 9.8 fL Normal 8.1-13.5 [facility] Comment on above: Performed By: #### C BC, PT, BMP #### [facility] [address] [place] [address] [address] Inspector: Karl Klein MD #### ANICOT #### [facility] [address] [place] [address] Highway Inspector: Cameron Calderon MD Platelets (Bld) [#/Vol] 199 10*3/uL Normal 138-453 [facility] Comment on above: Performed By: #### C BC, PT, BMP #### [address] [address] [address] Inspector: Karl Klein MD #### ANICOT #### [facility] [address] [place] [address] Highway Inspector: Cameron Calderon MD RBC (Bld) [#/Vol] 4.65 10*6/uL Normal 4.21-5.77 [facility] Comment on above: Performed By: #### C BC, PT, BMP #### [address] [address] [address] Inspector: Karl Klein MD #### ANICOT #### [facility] [address] [place] [address] Highway Inspector: Cameron Calderon MD WBC (Bld) [#/Vol] 6.7 10*3/uL Normal 3.5-11.3 [facility] Comment on above: Performed By: #### C BC, PT, BMP #### [facility] [address] [place] [address] [address] Inspector: Karl Klein MD #### ANICOT #### [facility] [address] [place] [address] Highway Inspector: Cameron Calderon MD PTon 05-19-2019 INR Coag (PPP) [Relative time] 1.1 {INR} Normal [facility] Comment on above: Result Comment: Therapeutic Range: Moderate Anticoagulant Intensity: INR = 2.0-3.0 High Anticoagulant Intensity: INR = 2.5-3.5 Performed By: #### C BC, PT, BMP #### [facility] [address] [place] [address] [address] Inspector: Karl Klein MD #### ANICOT #### [facility] [address] [place] [address] Highway Inspector: Cameron Calderon MD PT Coag (PPP) [Time] 12.0 s Normal 9.0-12.0 [facility] Comment on above: Performed By: #### C BC, PT, BMP #### [facility] [address] [place] [address] [id number] Inspector: Karl Klein MD #### ANICOT #### [facility] [address] [place] [address] Highway Inspector: Cameron Calderon MD XR CHEST (2 VW)on [...] Shawanda Aragon MD 05/19/19 Final result Normal [facility] XR CHEST STANDARD (2 VW)Orde red By: Serafin Shearer on 05-19-2019 Negative chest. [facility] Work Phone: EXAMINATION: TWO XRAY VIEWS OF THE CHEST 05/19/2019 11:41 am COMPARISON: None. HISTORY: ORDERING SYSTEM PROVIDED HISTORY: preop sleeve gastrectomy Reason for Exam: Preop 06/01/19. no chest complaints Type of Exam: Initial FINDINGS: The lungs are without acute focal process. No effusion or pneumothorax. The cardiomediastinal silhouette is normal. The osseous structures are intact without acute process. [employer] Travel Phone: Car, [employer] Incoming Radiant Results From [facility]Pacs - 05/19/2019 11:50 AM EST EXAMINATION: TWO [...] intact without acute process. IMPRESSION: Negative chest. [facility] Work Phone: Vital Signs Date Time Vital Sign Value Performing Clinician Emilia henley 05-14-2023 11:28-0500 Body height 190.5 cm Olaf esquivel ELIGIBILITY CONSULTANT-CAMPUS RECRUITING COORDINATOR Work Phone: [employer] 05-14-2023 11:28-0500 Body mass index (BMI) [Ratio] 48.25 kg/m2 Olaf Cain ELIGIBILITY CONSULTANT-CAMPUS RECRUITING COORDINATOR Work Phone: [employer] 05-14-2023 11:28-0500 Body weight 175.09 kg Olaf esquivel ELIGIBILITY CONSULTANT-CAMPUS RECRUITING COORDINATOR Work Phone: [employer] 05-14-2023 11:28-0500 Diastolic blood pressure 80 mm[Hg] Olaf Cain ELIGIBILITY CONSULTANT-CAMPUS RECRUITING COORDINATOR Work Phone: [employer] 05-14-2023 11:28-0500 Heart rate 61 /min Olaf esquivel ELIGIBILITY CONSULTANT-CAMPUS RECRUITING COORDINATOR Work Phone: [employer] 05-14-2023 11:28-0500 SaO2% (BldA) [Mass fraction] 95 % Olaf Cain ELIGIBILITY CONSULTANT-CAMPUS RECRUITING COORDINATOR Work Phone: [employer] 05-14-2023 11:28-0500 Systolic blood pressure 116 mm[Hg] Olaf Burnsiamfaizatemo ELIGIBILITY CONSULTANT-CAMPUS RECRUITING COORDINATOR Work Phone: [employer] 06-02-2019 07:15-0500 Body temperature 99.3 [degF] Serafin Shearer MD Work Phone: [facility] Work Phone: 06-02-2019 07:15-0500 Diastolic blood pressure 59 mm[Hg] Serafin Shearer MD Work Phone: [facility] Work Phone: 06-02-2019 07:15-0500 Heart rate 62 /min Serafin Shearer MD Work Phone: [employer] Work Phone: 06-02-2019 07:15-0500 Respiratory rate 16 /min Serafin Shearer MD Work Phone: [employer] Work Phone: 06-02-2019 07:15-0500 SaO2% (BldA) [Mass fraction] 95 % Serafin Shearer MD Work Phone: [facility] Work Phone: 06-02-2019 07:15-0500 Systolic blood pressure 116 mm[Hg] Serafin Shearer MD Work Phone: [facility] Work Phone: 06-01-2019 09:10-0500 Body height 190.5 cm Serafin Shearer MD Work Phone: [facility] Work Phone: 06-01-2019 09:10-0500 Body mass index (BMI) [Ratio] 53.24 kg/m2 Serafin Shearer MD Work Phone: [facility] Work Phone: 06-01-2019 09:10-0500 Body weight 193.2 kg Serafin Shearer MD Work Phone: [facility] Work Phone: Encounters Encounter Date Encounter Type Care Provider Facility Start: 10-25-2023 End: 10-25-2023 ambulatory Srinivas R Dolce Facility:[facility] Start: 10-17-2023 End: 10-17-2023 ambulatory PA Kelley Redmond Facility:[facility] Start: 10-10-2023 End: 10-10-2023 ambulatory PA Kelley Redmond Facility:[facility] Start: 10-04-2023 ambulatory Srinivas R Dolce Facility :[facility] Start: 10-02-2023 ambulatory Srinivas R Dolce Facility :[facility] Start: 09-26-2023 ambulatory Melo Reno acility:[facility] Start: 09-26-2023 End: 09-26-2023 ambulatory PA Kelley Redmond Facility:[facility] Start: 09-25-2023 End: 09-25-2023 ambulatory LESLY MELCHOR MD Facility:[facility] Start: 09-16-2023 End: 09-16-2023 ambulatory Srinivas R Dolce Facility:[facility] Start: 09-10-2023 End: 09-10-2023 ambulatory PA Kelley Redmond Facility:[facility] Start: 09-02-2023 End: 09-02-2023 ambulatory Srinivas R Dolce Facility:[facility] Start: 08-26-2023 End: 08-26-2023 ambulatory Srinivas R Dolce Facility:[facility] Start: 08-19-2023 End: 08-19-2023 ambulatory Srinivas R Dolce Facility:[facility] Start: 08-15-2023 End: 08-15-2023 ambulatory PA Kelley Redmond Facility:[facility] Start: 08-08-2023 End: 08-08-2023 ambulatory PA Kelley Redmond Facility:[facility] Start: 08-01-2023 End: 08-01-2023 ambulatory PA Kelley Redmond Facility:[facility] Start: 07-26-2023 End: 07-26-2023 ambulatory Srinivas R Dolce Facility:[facility] Start: 07-24-2023 End: 07-24-2023 ambulatory Srinivas R Dolce Facility:[facility] Start: 07-24-2023 End: 07-24-2023 ambulatory Srinivas R Dolce Facility:[facility] Start: 07-19-2023 End: 07-19-2023 ambulatory LESLY MELCHOR MD Facility:[facility] Start: 07-19-2023 End: 07-19-2023 ambulatory Srinivas R Dolce Facility:[facility] Start: 07-15-2023 End: 07-15-2023 ambulatory Srinivas R Dolce Facility:[facility] Start: 07-12-2023 End: 07-12-2023 ambulatory Srinivas R Dolce Facility:[facility] Start: 07-10-2023 End: 07-10-2023 ambulatory Srinivas R Dolce Facility:[facility] Start: 07-05-2023 End: 07-05-2023 ambulatory Srinivas R Dolce Facility:[facility] Start: 07-01-2023 End: 07-01-2023 ambulatory Srinivas R Dolce Facility:[facility] Start: 06-26-2023 End: 06-26-2023 ambulatory LESLY MELCHOR MD Facility:[facility] Start: 05-14-2023 End: 05-14-2023 Office outpatient visit 15 minutes Olaf Cain ELIGIBILITY CONSULTANT-CAMPUS RECRUITING COORDINATOR Work Phone: [facility] Comment on above: Cardiac pacemaker (P rimary Dx); Morbid obesity with BMI of 40.0-44.9, adult ([facility]); Complete heart block ([facility]) Start: 05-14-2023 End: 05-14-2023 Clinical Support Ppc Pacer [facility] Comment on above: Cardiac pacemaker (P rimary Dx) Start: 03-26-2023 End: 03-26-2023 ambulatory LESLY MELCHOR MD Facility:[facility] Start: 12-21-2022 End: 12-21-2022 ambulatory LESLY MELCHOR MD Facility:[facility] Start: 12-13-2022 End: 12-13-2022 ambulatory LESLY MELCHOR MD Facility:[facility] Start: 11-27-2022 ambulatory LESLY MELCHOR MD Facil ity:[facility] Start: 02-10-2021 End: 02-11-2021 ambulatory CONSUELO DENNISATUL [facility] Start: 02-10-2021 End: 02-10-2021 Subsequent hospital visit by physician [facility] Rm [facility] Comment on above: History of pulmonary embolism; Hx of deep venous thrombosis Start: 06-01-2019 End: 06-02-2019 Evaluation and management of inpatient SERAFIN SHEARER [facility] Start: 06-01-2019 End: 06-02-2019 Evaluation and management of inpatient Serafin Shaerer MD Work Phone: [address] Ortho/Med Surg Comment on above: S/P laparoscopic sle ramon gastrectomy (Primary Dx) Start: 05-19-2019 End: 2019 Patient encounter procedure SERAFIN SHEARER [facility] Start: 05-19-2019 End: 05-21-2019 Subsequent hospital visit by physician [facility] Radiology Comment on above: Arrived Procedures Date [...] Start: 06-01-2019 Glucose blood reagent strip SERAFIN PRIYANKA Start: 06-01-2019 Level iv surg pathology gross&microscopic exam Serafin Shearer MD Work Phone: Start: 06-01-2019 Glucose blood reagent strip Serafin Shearer MD Work Phone: Start: 06-01-2019 TELEMETRY MONITORING SERAFIN SHEARER Start: 06-01-2019 DIET NPO, NOW SERAFIN [place] Start: 06-01-2019 FULL CODE SERAFIN PRIYANKA Start: 06-01-2019 HOME BIPAP OR CPAP SERAFIN [...] routine ecg w/least 12 lds w/i&r SERAFIN PRIYANKA Start: 05-19-2019 EKG REPORT SERAFIN PRIYANKA Start: 05-19-2019 Radiologic exam chest 2 views Serafin Shearer MD Work Phone: Plan of Treatment Date Care Activity Detail Author Start: 2027 Pneumococcal 0-64 ye ars Vaccine (2 of 2 - PPSV23) Pneumococcal 0-64 years Vaccine (2 of 2 - PPSV23) [employer] Travel Phone: Start: 12-30-2025 Lipid panel Lipid screen [employer] Phone: Start: 05-14-2024 [facility] Start: 05-14-2024 [facility]ening [facility] Start: 07-30-2023 [facility] Phone: Start: 12-30-2021 Creatinine measurement Creatinine mo nitoring [employer] Phone: Start: 12-30-2021 Potassium monitoring Potassium monit oring [employer] Phone: Start: 12-30-2021 Thyroid stimulating hormone measurement TSH testing [employer] Phone: Start: 08-29-2021 End: 08-29-2021 Patient encounter procedure 08/29/2021 Office Visit Oncology Consueol Delgadillo MD [address] [place] [address] [facility] Start: 03-24-2021 End: 03-24-2021 Patient encounter procedure 03/24/2021 Office Visit Pulmonology Teddy Fam MD [address] [address] [facility] Start: 02-14-2021 End: 02-14-2021 Patient encounter procedure 02/14/2021 Office Visit Bariatrics Mary Lou Power, ELIGIBILITY CONSULTANT - CAMPUS RECRUITING COORDINATOR [address] [facility] [address] [place] [id number] [facility] Start: 01-04-2021 Influenza vaccination Flu vaccine (# 1) [facility] [employer] Phone: Start: 05-19-2020 Creatinine monitoring Creatinine mon itoring [facility] [employer] Phone: Start: 05-19-2020 Potassium monitoring Potassium monit oring [facility] [employer] Phone: Start: 07-30-2019 TSH testing TSH testing [facility] [employer] Phone: Start: 06-12-2019 End: 06-12-2019 Patient encounter procedure 06/12/2019 Office Visit Pulmonology Teddy Fam MD [address] [id number] [facility] Start: 06-09-2019 End: 06-09-2019 Patient encounter procedure 06/09/2019 Office Visit Bariatrics Serafin Shearer MD [address] [place] [address] [facility] Invasive Bariatric Surg Start: 06-01-2019 End: 06-01-2019 Admission to same day surgery center 06/01/2019 Surgery IP Unit Serafin Shearer MD [address] [place] [address] XI ROBOTIC LAPAROSCOPIC GASTRECTOMY SLEEVE, ENDOSEAL [facility] Comment on above: XI ROBOTIC LAPAROSCO PIC GASTRECTOMY SLEEVE, ENDOSEAL Start: 06-01-2019 Subsequent hospital visit by physician 06/01/2019 Hospital Encounter IP Unit Serafin Shearer MD [address] [place] [address] [facility] Start: 03-06-2019 Annual Wellness Visi t (AWV) Annual Wellness Visit (AWV) [facility] [employer] Phone: Start: 2012 Administration of varicella zoster vaccine Zoster (Shingles) Vaccine (1 of 2) [employer] Start: 2012 Colon cancer screen colonoscopy Colon cancer screen colonoscopy [employer] Phone: Start: 2012 Shingles Vaccine (1 of 2) Shingles Vaccine (1 of 2) [employer]: Start: 2007 Screening for malign ant neoplasm of colon Colon cancer screen colonoscopy [employer]: Start: 1981 DTaP,Tdap and Td Vaccines (1 - Tdap) DTaP,Tdap and Td Vaccines (1 - Tdap) [facility] Start: 1981 DTaP/Tdap/Td vaccine (1 - Tdap) DTaP/Tdap/Td vaccine (1 - Tdap) [employer] Phone: Start: 1980 Adult BMI Follow Up Plan Adult BMI Follow Up Plan [facility] Start: 1977 HIV screen HIV screen [facility] Work Phone: Start: 1977 HIV screening HIV screen [facility] Work Phone: Start: 1974 Depression Screening Depression Scre ening [facility] Start: 1973 DTaP/Tdap/Td vaccine (1 - Tdap) DTaP/Tdap/Td vaccine (1 - Tdap) [employer] Phone: Start: 1962 Hepatitis C screen Hepatitis C scree n [employer] Phone: Start: 1962 Hepatitis C screening Hepatitis C sc reen [employer] Phone: Start: 1962 Tobacco Counseling Tobacco Counselin g [facility] [employer] [facility] Home BIPAP or CPAP Home BIPAP or CPAP Respiratory Care Routine Daily until discontinued starting 06/01/2019 [employer] Phone: Comment on above: Daily until disconti nued starting 06/01/2019 Initiate Oxygen Ther apy Protocol Initiate Oxygen Therapy Protocol Respiratory Care Routine Daily until discontinued starting 06/01/2019 [employer] Phone: Comment on above: Daily until disconti nued starting 06/01/2019 Surgical Pathology Surgical Path ology Lab Routine ONE TIME for 1 Occurrences starting 06/01/2019 [employer] Phone: Comment on above: ONE TIME for 1 Occur rences starting 06/01/2019 Immunizations Immunization Date Immunization Notes Care Provider Bhavna lynch 12-16-2013 pneumococcal polysaccharide vaccine, 23 valent Stv 2 [facility] [employer] [facility] Payers Date Payer Category Payer Self-pay 2019 Unknown DAKOTA WEN D UAL BENEFITS [facility] WEN [facility] xxxxxxxxxxx 2019-Present [address] [place] [phone] xxxxxxxxxxx [id number] 2018 Medicaid [place] [employer] [facility] MEDICAID [id number] 2018-Present [phone] [address] [place] [address] [id number] 2018 Medicaid [id number] 2018 Medicare [place] [employer] [facility] MEDICARE [id number] 2018-Present [phone] [address] [place] [address] [id number]. [id number] 2018 Unknown [id number] 1960 Unknown [id number] 2.16.840.1.307105.3.579.2.175 1962 Unknown [id number] 2.16.840.1.718708.3.579.2.175 1962 Unknown [id number] 2.16.840.1.566407.3.579.2.175 1962 Unknown [id number] 2.16.840.1.822028.3.579.2.176 1962 Unknown [id number] 2.16.840.1.721583.3.579.2.1286 1962 Unknown [id number] 2.16.840.1.136726.3.579.2.1286 1962 Unknown [id number] 2.16.840.1.241470.3.579.2. 1962 Unknown [id number] 2.16.840.1.312153.3.579.2. 1962 Unknown [id number] 2.16.840.1.238993.3.579.2. 1962 Unknown [id number] 2.16.840.1.951728.3.579.2. 1962 Unknown [id number] 2.16.840.1.278941.3.579.2. 1962 Unknown [id number] 2.16.840.1.699916.3.579.2. 1962 Unknown [id number] 2.16.840.1.652170.3.579.2. 1962 Unknown [id number] 2.16.840.1.438431.3.579.2. 1962 Unknown [id number] 2.16.840.1.053988.3.579.2. 1962 Unknown [id number] 2.16.840.1.493426.3.579.2. 1962 Unknown [id number] 2.16.840.1.511801.3.579.2. 1962 Unknown [id number] 2.16.840.1.243555.3.579.2. 1962 Unknown [id number] 2.16.840.1.254620.3.579.2. 1962 Unknown [id number] 2.16.840.1.384589.3.579.2. 1962 Unknown [id number] 2.16.840.1.723162.3.579.2. 1962 Unknown [id number] 2.16.840.1.043140.3.579.2. 1962 Unknown [id number] 2.16.840.1.780829.3.579.2. 1962 Unknown [id number] 2.16.840.1.521300.3.579.2. 1962 Unknown [id number] 2.16.840.1.724009.3.579.2. 1962 Unknown [id number] 2.16.840.1.888102.3.579.2. 1962 Unknown [id number] 2.16.840.1.798019.3.579.2. 1962 Unknown [id number] 2.16.840.1.282077.3.579.2. 1962 Unknown [id number] 2.16.840.1.331855.3.579.2. 1962 Unknown [id number] 2.16.840.1.739746.3.579.2. 1962 Unknown [id number] 2.16.840.1.008759.3.579.2. 1962 Unknown [id number] 2.16.840.1.849487.3.579.2. 1962 Unknown [id number] 2.16.840.1.735184.3.579.2. 1962 Unknown [id number] 2.16.840.1.056639.3.579.2. 1962 Unknown [id number] 2.16.840.1.012695.3.579.2.718 1962 Unknown [id number] 2.16.840.1.508357.3.579.2.8 1962 Unknown [id number] 2.16.840.1.721432.3.579.2.718 1962 Unknown [id number] 2.16.840.1.963693.3.579.2.8 1962 Unknown [id number] 2.16.840.1.745266.3.579.2.8 1962 Unknown [id number] 2.16.840.1.320928.3.579.2.8 1962 Unknown [id number] 2.16.840.1.734929.3.579.2.8 1962 Unknown [id number] 2.16.840.1.083756.3.579.2. Unknown [id number] 2.16.840.1.356262.3.579.2.531 Social History Date Type Detail Facility Start: 02-08-2021 End: 04-18-2022 Tobacco smoking status [facility] Never smoker [facility] Start: 02-08-2021 Tobacco use and exposure Former user [employer]: End: 01-17-2021 History of tobacco use Chews Tobacco [employer] Phone: Start: 02-08-2021 End: 05-14-2023 Alcohol intake Ex-drinker (finding) [employer] Phone: Start: 07-25-2018 History SDOH Alcohol Frequency 1 [employer] Phone: Start: 1960 Sex Assigned At [facility]: Start: 04-18-2022 Tobacco use and exposure User of smokeless tobacco [facility] [facility] Start: 06-16-2020 End: 01-09-2024 History of Social function [facility] [employer] [facility] Start: 06-16-2020 End: 05-14-2023 Tobacco use panel [facility] [employer] [facility] Housing Instability Unknown [facility] Medical Equipment Procedure Code Equipment Code Equipment Origin al Text Equipment Identifier Dates Ld Pcng Ingevity + 52cm Mri - [id number] - [id number] Start: 08-25-2020 Cardiac pacemaker, device (physical object) ([id number]) Pcmkr Accolade Mri Dr Cade - [id number] - [id number] Start: 08-25-2020 Goals Date Patient Goal Desired Activity /State Personal health goal Comment on above: Formatting of this n ote might be different from the original. Evaluation of progress towards goal: home self care Clinical Notes 06-02-2019 to 10-17-2023 Olaf Cain APRN-[facility] - 05/14/2023 11:30 AM Juanita Hopper MD - 05/14/2023 11:00 AM Starr Sanon RN - 06/02/2019 7:24 AM Serafin Jesus MD - 06/02/2019 6:43 AM EST Note Date & Type Note Facility 10-17-2023 Note Entered by Noris Pierce on October 17, 2023 07:43:22 EDT From: Ana Pierce To: [facility] Sent: 10/17/2023 07:43:22 EDT Subject: Medication Management Submitted: Complete:levothyroxine (levothyroxine 150 mcg (0.15 mg) oral tablet) Signed by Ana Pierce 10/17/2023 07:43:00 EDT Approved with modifications: levothyroxine (LEVOTHYROXINE 150MCG TAB 150 Tablet) TAKE 1 TABLET BY MOUTH ONCE DAILY Qty: 30 tab(s) Days Supply: 30 Refills: 10 Substitutions Allowed Route To Pharmacy - [facility] Signed by Ana Pierce --------- From: [facility] To: KAREN ZAPATA, LESLY To MD [...] 10 Substitutions Allowed Notes from Pharmacy: --------- [facility] 07-24-2023 Note CLINICAL DATA: Venou s insufficiency [...] Signature): Romulo Wright 07/24/23 10:38 a Technologist: [facility] 07-08-2023 Note Entered by Noris Pierce on July 08, 2023 07:59:35 EST From: Ana Pierce To: [facility] Sent: 07/08/2023 07:59:35 EST Subject: Medication Management Not Approved: now on pulmicort fluticasone (FLUTICASONE PROP HFA 110MCG 110 Aerosol) INHALE 2 PUFFS BY MOUTH TWICE DAILY *RINSE MOUTH AFTER USE* Qty: 12 gm Days Supply: 30 Refills: 10 Substitutions Allowed Route To Pharmacy - [facility] Signed by Ana Pierce --------- From: [facility] To: KAREN ZAPATA, LESLY To MD Sent: July 05, 2023 4:32:01 PM [employer] Subject: Medication Management Due: July 06, 2023 12:09:30 AM DIRECTOR [employer] On Hold Pending Signature Drug: fluticasone (Flovent [...] 10 Substitutions Allowed Notes from Pharmacy: --------- [facility] 05-28-2023 Note Entered by Noris Pierce on May 28, 2023 07:49:21 EST From: Ana Pierce To: [facility] Sent: 05/28/2023 07:49:21 EST Subject: Medication Management Submitted: Complete:oxyBUTYnin (oxybutynin 10 mg/24 hr oral tablet, extended release) Signed by Ana Pierce 05/28/2023 07:49:00 EST Approved with modifications: oxyBUTYnin (OXYBUTYNIN ER 10MG TAB 10 Tablet) TAKE 1 TABLET BY MOUTH DAILY Qty: 30 tab(s) Days Supply: 30 Refills: 10 Substitutions Allowed Route To Pharmacy - [facility] Signed by Ana Pierce --------- From: [facility] To: KAREN ZAPATA, LESLY To MD Sent: May 27, 2023 5:22:40 PM [employer] Subject: Medication Management Due: May 28, 2023 12:05:03 AM DIRECTOR [employer] On Hold Pending Signature Drug: oxyBUTYnin (oxybutynin 10 mg/24 hr oral tablet, extended release), 1 tab(s) PO Daily Quantity: 30 tab(s) Days Supply: 0 Refills: 10 Substitutions Allowed Notes from Pharmacy: Dispensed Drug: oxyBUTYnin (oxybutynin 10 mg/24 hr oral tablet, extended release), TAKE 1 TABLET BY MOUTH DAILY Quantity: 30 tab(s) Days Supply: 30 Refills: 10 Substitutions Allowed Notes from Pharmacy: --------- [facility] 05-14-2023 History of Present illness Narrative Yrn [...] PE, chronic lymphedema, complete heart block s/p [employer] dual-chamber pacemaker implanted 2020. He is here today for routine evaluation. Patient states he has been doing well since last office visit. He denies chest pain, shortness of breath, palpitations, fatigue. Patient enjoys fishing with his grandson. Past Medical History: Diagnosis Date Anxiety COPD (chronic obstructive pulmonary disease) ([facility]) Depression Hypertension Hypothyroidism Sleep apnea No data recorded No data recorded No data recorded Past Surgical History: Procedure Laterality Date Cardiac catheterization N/A 08/23/2020 Performed by Brian Hilario MD at [facility] Coronary angiogram and left ventricular gram/pressure N/A 08/23/2020 Performed by Brian Hilario MD at [facility] EP - Device-PPM Left 08/25/2020 Performed by Alexander Hopper MD at [facility] (EP) HAND RECONSTRUCTION Left SLEEVE GASTROPLASTY [...] Morbid obesity with BMI of 40.0-44.9, adult ([facility]) 3. Complete heart block ([facility]) Intermittent complete heart block s/p [employer] dual-chamber pacemaker implanted 2020 Device check [...] MELCHOR MD Referring Physician: Lesly Melchor MD [address] [place] [address] LATISHA Harman 05/14/23 1202 documented in this encounter [facility] 05-14-2023 History of Present illness Narrative I agree with the findings in the scanned document. documented in this encounter [facility] 01-11-2023 Note Entered by Noris Pierce on January 11, 2023 07:51:29 EDT From: Ana Pierce To: [facility] Sent: 01/11/2023 07:51:29 EDT Subject: Medication Management Submitted: Complete:rivaroxaban (Xarelto 20 mg oral tablet) Signed by Ana Pierce 01/11/2023 07:51:00 EDT Approved with modifications: rivaroxaban (XARELTO 20 MG TABLET 20 Tablet) TAKE 1 TABLET BY MOUTH IN THE EVENING WITH MEALS Qty: 30 tab(s) Days Supply: 30 Refills: 10 Substitutions Allowed Route To Pharmacy - [facility] Signed by Ana Pierce Patient matched by Ana Pierce on 01/11/2023 07:51:09 EDT --------- From: [facility] To: KAREN ZAPATA, LESLY To MD Sent: January 10, 2023 5:18:47 PM CDT Subject: Medication Management Due: January 11, 2023 1:31:05 PM CDT On Hold Pending Signature Dispensed Drug: rivaroxaban (Xarelto 20 mg oral tablet), TAKE 1 TABLET BY MOUTH IN THE EVENING WITH MEALS Quantity: 30 tab(s) Days Supply: 30 Refills: 10 Substitutions Allowed Notes from Pharmacy: --------- [facility] 06-02-2019 History of Present illness Narrative Verified [...] NICHOLS 1:03 PM documented in this encounter [employer]: Evaluation note Diagnosis History of pulmonary embolism Personal history of pulmonary embolism Hx of deep venous thrombosis Personal history of venous thrombosis and embolism documented in this encounter [employer] Phone: evaluation note* Diagnosis S/P laparoscopic sleeve gastrectomy- Primary documented in this encounter [employer] Phone: evaluation note* Diagnosis Cardiac pacemaker- Primary Cardiac pacemaker in situ Morbid obesity with BMI of 40.0-44.9, adult ([facility]) Complete heart block ([facility]) Atrioventricular block, complete documented in this encounter [employer] System[employer] note* Diagnosis Cardiac pacemaker- Primary Cardiac pacemaker in situ documented in this encounter [facility] [facility] Instructions* Stewart Golden DO - 06/02/2019 Discharge Instructions for Bariatric Surgery You had a Laparoscopic Sleeve Gastrectomy (62617) to treat obesity. Recovery from this surgery [...] scheduled appointment, please call the office at [phone]. Call Your Doctor If Any of the [...] sent through Care Everywhere. * Enoxaparin (Lovenox) (Czech) * enoxaparin (Czech) [facility]: InstructionsNot on filedocumented in this encounter [facility] on filedocumented in this encounter [facility] Summary Purpose Family History No Family History Records FoundNo Family History Records FoundNo Family History Records FoundNo Family History Records FoundNo Family History Records Found Advance Directives No Advanced Directives Records FoundDocuments on File Type Date Recorded Patient Floor Technician Expl anation ACP-Advance Directive ACP-Power of Glass Etcher Helper Latest Code Status on File Code Status Date Activated Date Inactivated Comments Full Code 06/01/2019 12:33 PM 06/02/2019 3:05 PM Documents on File Type Date Recorded Patient Floor Technician Expl anation Advance Directives and Living Will Power of Glass Etcher Helper Documents on File Type Date Recorded Patient Floor Technician Expl anation Advance Directives and Living Will Power of Glass Etcher Helper Latest Code Status on File Code Status Date Activated Date Inactivated Comments Full Code 06/01/2019 12:33 PM Reason for Referral Status Reason Specialty Diagnoses / Procedures Referred By Contact Referred To Contact Pending Review Radiology Diagnoses History of pulmonary embolism Hx of deep venous thrombosis Procedures VL DUP LOWER EXTREMITY VENOUS BILATERAL Consuelo Delgadillo MD [address] [place] [address] Specialty Diagnoses / Procedures Referred By Contac t Referred To Contact Diagnoses Cardiac pacemaker Procedures Device Interrogation Olaf Cain, ELIGIBILITY CONSULTANT-CAMPUS RECRUITING COORDINATOR [address] [place] [address] Referral ID Status Reason Start Date Expiration Date V isits Requested Visits Authorized [id number] Pending Review 05/14/2023 05/13/2024 1 1 Additional Source Comments (unrecognized sect ion and content) No Status Records FoundNo Status Records FoundNo Status Records FoundNo Status Records FoundNo Status Records Found INFORMATION SOURCE (unrecogn ized section and content) DATE CREATED AUTHOR 07/14/2019 [facility] DATE CREATED AUTHOR AUTHOR'S ORGANIZ ATION 02/11/2021 [facility] DATE CREATED AUTHOR AUTHOR'S ORGANIZ ATION 05/19/2023 [facility] DATE CREATED AUTHOR AUTHOR'S ORGANIZ ATION 09/29/2023 [facility] DATE CREATED AUTHOR AUTHOR'S ORGANKIRILL ATION 10/31/2023 [facility] Reason for Visit (unrecogniz ed section and content) Status Reason Specialty Diagnoses / Procedures Referred By Contact Referred To Contact Pending Review Radiology Diagnoses History of pulmonary embolism Hx of deep venous thrombosis Procedures VL DUP LOWER EXTREMITY VENOUS BILATERAL Consuelo Delgadillo MD [address] [place] [address] Status Reason Specialty Diagnoses / Procedures Referre d By Contact Referred To Contact Diagnoses Obesity OBESITY, HYPERTENSION, COPD, HYPOTHYROIDISM, LIPODEMIA Procedures IN LAP, DHARMESH RESTRICT PROC, LONGITUDINAL GASTRECTOMY XI ROBOTIC LAPAROSCOPIC GASTRECTOMY SLEEVE, ENDOSEAL Serafin Shearer MD [address] [place] [address] [facility] Reason Comments Device Check Reason Comments Device Check Care Teams (unrecognized sec tion and content) Oxidation Operator Relationship Specialty Start Date End Date Lesly Melchor MD [address] [place] [id number] PCP - General 02/10/16 Oxidation Operator Relationship Specialty Start Date End Date Lesly Melchor MD [address] [place] [id number] PCP - General 02/10/16 FOR RECORDS PERTAINING [...] BE BASED ON THE PRIMARY CLINICAL RECORDS. [facility] [employer] [facility]. provides no warranty or guarantee of the accuracy or completeness of information in this document.
--- NOTE | 2023-11-06 07:12 | VEIN_ITS ---
[address] [address] Patient Name: YRN RICARDO MRN: [id number] date: 1960 Sex: M Assigned Patient Location: Current Patient Location: Accession/Order Number: [id number] Exam Date: 11/06/2023 07:15 Report Date: 11/06/2023 11:56 At the request of: LEONID SCOTT Procedure: VC Endovenous Perf Ablation RT EXAMINATION: VC Endovenous Perf Ablation RT COMPARISON: INDICATIONS: Pain due to varicose veins of bilateral legs I83.813 OPERATIVE REPORT: Diagnosis: Superficial venous reflux, incompetent perforating veins Procedure: Endovenous laser ablation of the right correction warden(s) Procedure: The patient was positioned supine on the table and the leg was prepped and draped to allow for visualization during venous access. A sterile cover was draped over a 16 mhz ultrasound probe. Venous mapping was performed prior to the procedure noting location and size of vessel(s). Lockstitch Front Edge Tape Sewer vein 1: Distal medial calf of right leg. The diameter of the vein ranged from 7.8 mm's below the muscular fascia to 7.8 mm's at the entry point. Using a 30 gauge needle the entry site was anesthetized with 1 cc of 1% buffered lidocaine. Access was gained percutaneously, with a 21-gauge needle, into the correction warden vein under ultrasound guidance. The needle was advanced into the desired position and the pre-measured 400-micron fiber was then inserted into the needle and locked in place. The position of the fiber was imaged with ultrasound guidance. The fiber tip was visualized to be 10 mm from the deep vessel. An anesthetic solution of 5 cc 1% buffered lidocaine was delivered along the course of the vein under ultrasound guidance using a syringe. A final positioning check of the laser fiber tip was performed. The laser was activated by means of a foot-pedal and the fiber and needle were withdrawn together in accordance to the desired joules per treatment area/spot weld. 3 areas/spot welds were performed, and the total number of joules delivered was 182. The total time of energy delivery was 23 seconds. A duplex ultrasound revealed compressibility and flow of the deep system immediately after the procedure. Hemostasis of the access site was achieved and dressed. A 20-30 mm compression stocking over coban was placed on the treated leg. Post-Op instructions were given, and a follow-up appointment was made. Lockstitch Front Edge Tape Sewer vein 2: Mid medial calf of right leg. The diameter of the vein ranged from 5.0 mm's below the muscular fascia to 5.0 mm's at the entry point. Using a 30 gauge needle the entry site was anesthetized with 1 cc of 1% buffered lidocaine. Access was gained percutaneously, with a 21-gauge needle, into the correction warden vein under ultrasound guidance. The needle was advanced into the desired position and the pre-measured 400-micron fiber was then inserted into the needle and locked in place. The position of the fiber was imaged with ultrasound guidance. The fiber tip was visualized to be 10 mm from the deep vessel. An anesthetic solution of 5 cc 1% buffered lidocaine was delivered along the course of the vein under ultrasound guidance using a syringe. A final positioning check of the laser fiber tip was performed. The laser was activated by means of a foot-pedal and the fiber and needle were withdrawn together in accordance to the desired joules per treatment area/spot weld. 2 areas/spot welds were performed, and the total number of joules delivered was 130. The total time of energy delivery was 16 seconds. A duplex ultrasound revealed compressibility and flow of the deep system immediately after the procedure. Hemostasis of the access site was achieved and dressed. A 20-30 mm compression stocking over coban was placed on the treated leg. Post-Op instructions were given, and a follow-up appointment was made. Lockstitch Front Edge Tape Sewer vein 3: Mid posterior calf of right leg. The diameter of the vein ranged from 5.5 mm's below the muscular fascia to 5.5 mm's at the entry point. Using a 30 gauge needle the entry site was anesthetized with 1 cc of 1% buffered lidocaine. Access was gained percutaneously, with a 21-gauge needle, into the correction warden vein under ultrasound guidance. The needle was advanced into the desired position and the pre-measured 400-micron fiber was then inserted into the needle and locked in place. The position of the fiber was imaged with ultrasound guidance. The fiber tip was visualized to be 10 mm from the deep vessel. An anesthetic solution of 6 cc 1% buffered lidocaine was delivered along the course of the vein under ultrasound guidance using a syringe. A final positioning check of the laser fiber tip was performed. The laser was activated by means of a foot-pedal and the fiber and needle were withdrawn together in accordance to the desired joules per treatment area/spot weld. 3 areas/spot welds were performed, and the total number of joules delivered was 185. The total time of energy delivery was 23 seconds. A duplex ultrasound revealed compressibility and flow of the deep system immediately after the procedure. Hemostasis of the access site was achieved and dressed. A 20-30 mm compression stocking over coban was placed on the treated leg. Post-Op instructions were given, and a follow-up appointment was made. CONCLUSION: 1. Technically successful endovenous laser ablation of 3 separate right calf correction warden veins Electronically authenticated by: MARCO LYNN Date: 11/06/2023 11:56
--- NOTE | 2023-11-06 09:25 | P.DS_ITS ---
Discharge Plan Discharge Disposition: Home, Self-Care Outpatient Diagnostics: VC EXT Venous RT LMTD (Routine) Timeframe: 2 Weeks Facility: [facility] - Location[facility] Ordered By: Herman Patiño VC EXT Venous RT LMTD (Routine) Timeframe: 2 Weeks Facility: [facility] - Location: [facility]in Center Ordered By: Herman Patiño Follow Up Appointments: 11/20/2023 Patient Instructions: Endovenous Ablation (DC) Print Language: Estonian Discharge Date/Time: 11/06/23 09:28
[2023-11-06] MEDS: LIDOCAINE HCL 20 ML, SODIUM BICARBONATE 2 MEQ INJ (12:48)
== END 2023-11-06 09:28 | disposition home or self-care (01) ==
PROVIDERS: PCP Radiology Diagnostic Radiology; Visit Provider Radiology Diagnostic Radiology
DX: I83.813 Varicose veins of bilateral lower extremities with pain (principal)
CPT/HCPCS: 36478

== ENCOUNTER 2023-11-20 08:44 | Outpatient (OUT) | payer MEDICARE, MEDICAID, SELFPAY ==
[2023-11-20 08:13] VITALS: BMI 48.2
--- NOTE | 2023-11-20 08:13 | VEINCLINIC_ITS ---
Vital Signs 11/20/23 08:13 Height 6 ft 3 in Weight 175 kg BMI 48.2 Varicose Veins Patient in this day for follow up ultrasound post EVLT of right leg perforators. Herman Chaves MD personally performed the services described in this documentation, as scribed by Estefania Dhaliwal RVT, RDMS in my presence and it is both accurate and complete. Estefania Chaves RVT, RDMS, am scribing for, and in the presence of, Dr. Herman Patiño and in the presence of the patient. medial thigh: bilateral, knee: bilateral, calf: bilateral, ankle: bilateral and munoz: bilateral burning and sharp 6 11 years Worsened in recent months: Yes standing and sitting bed rest, elevating extremities and compression stockings Reports heaviness, edema and leg edema History of lower extremity trauma: No Superficial thrombophlebitis: No Family history of varicose veins: unknown Has patient had previous lower extremity venous surgery: No Patient has previously received the following treatment(s) for lower extremity varicose veins: Reports none Does patient have a history of : not applicable Does patient intend to have future pregnancies: not applicable Has patient had lower extremity venous scan with relux testing: Yes Support hose used: Yes Problems walking or doing physical activity: Yes How does it affect you: 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 Estefania Chaves RVT, RDMS, am scribing for, and in the presence of, Dr. Herman Patiño and in the presence of the patient. Status of ROS 10 or more systems reviewed and unremark able except as noted in history and below Cardiovascular Reports: edema and swelling of feet/ankles Musculoskeletal Reports: extremity pain and extremity swelling Integumentary/Breast Reports: redness, non-healing lesion and changes in skin color [facility] Medical History (Updated 11/06/23 @ 09:27 by Estefania Dhaliwal) Phlebitis and thrombophlebitis of superficial vessels of right lower extremity ?I80.01 - Phlebitis and thrombophlebitis of superficial vessels of right lower extremity (ICD-10) Non-healing lumpectomy wound ?T81.89XA - Other complications of procedures, not elsewhere classified, initial encounter (ICD-10) Other reconstructive surgery as the cause of abnormal reaction of the patient, or of later complication, without mention of misadventure at the time of the procedure ?Y83.4 - Other reconstructive surgery as the cause of abnormal reaction of the patient, or of later complication, without mention of misadventure at the time of the procedure (ICD-10) Cubital tunnel syndrome ?G56.20 - Lesion of ulnar nerve, unspecified upper limb (ICD-10) Pacemaker ?Z95.0 - Presence of cardiac pacemaker (ICD-10) Obesity ?E66.9 - Obesity, unspecified (ICD-10) Hypothyroidism ?E03.9 - Hypothyroidism, unspecified (ICD-10) Osteoarthritis ?M19.90 - Unspecified osteoarthritis, unspecified site (ICD-10) DVT (deep venous thrombosis) ?I82.409 - Acute embolism and thrombosis of unspecified deep veins of unspecified lower extremity (ICD-10) Arrhythmia ?I49.9 - Cardiac arrhythmia, unspecified (ICD-10) PVD (peripheral vascular disease) ?I73.9 - Peripheral vascular disease, unspecified (ICD-10) COPD (chronic obstructive pulmonary disease) ?J44.9 - Chronic obstructive pulmonary disease, unspecified (ICD-10) Asthma ?J45.909 - Unspecified asthma, uncomplicated (ICD-10) Lymphedema ?I89.0 - Lymphedema, not elsewhere classified (ICD-10) Venous insufficiency ?I87.2 - Venous insufficiency (chronic) (peripheral) (ICD-10) Varicose veins of bilateral lower extremities with pain ?I83.813 - Varicose veins of bilateral lower extremities with pain (ICD-10) Surgical History (Updated 11/06/23 @ 09:06 by Estefania Dhaliwal) H/O gastric sleeve ?Z90.3 - Acquired absence of stomach [part of] (ICD-10) Family History (Updated 11/06/23 @ 09:08 by Estefania Dhaliwal) Other Family history not known due to adoption Social History (Updated 11/06/23 @ 09:09 by Estefania Dhlaiwal) Within the past year, how often did you have a drink containing alcohol: never Score interpretation: A score less than 4 is consistent with normal alcohol consumption. Smoking status: Never smoker Non-prescribed substance use: denies use Meds Home Medications and Allergies Home Medications ?Medication ?Instructions ?Recorded ?Confirmed ?Type albuterol sulfate 90 mcg/actuation 1 inh inhalation Q6H 11/06/23 11/06/23 History aerosol inhaler aripiprazole 20 mg tablet (Abilify) 20 mg PO DAILY 11/06/23 11/06/23 History cetirizine 10 mg capsule 10 mg PO DAILY PRN angioedema 11/06/23 11/06/23 History citalopram 20 mg tablet (Celexa) 10 mg PO DAILY 11/06/23 11/06/23 History fluticasone propionate 110 1 inh inhalation BID 11/06/23 11/06/23 History mcg/actuation HFA aerosol inhaler levothyroxine 150 mcg tablet 75 mcg PO DAILY 11/06/23 11/06/23 History (Euthyrox) lorazepam 0.5 mg tablet (Ativan) 0.5 mg PO DAILY 11/06/23 11/06/23 History oxybutynin chloride 10 mg 10 mg PO DAILY 11/06/23 11/06/23 History tablet,extended release 24 hr oxycodone-acetaminophen 5 mg-325 1 tab PO DAILY 11/06/23 11/06/23 History mg tablet (Endocet) rivaroxaban 20 mg tablet (Xarelto) 20 mg PO DAILY 11/06/23 11/06/23 History trazodone 100 mg tablet 50 mg PO DAILY 11/06/23 11/06/23 History zolpidem 5 mg tablet (Ambien) 11/06/23 History Allergies Allergy/AdvReac Type Severity Reaction Status Date / Time No Known Drug Allergies Allergy Verified 10/04/23 14:35 Exam Narrative Exam Narrative: IHerman MD personally performed the services described in this documentation, as scribed by Estefania Dhaliwal RVT, RDMS in my presence and it is both accurate and complete. IEstefania RVT, RDMS, am scribing for, and in the presence of, Dr. Herman Patiño and in the presence of the patient. Constitutional Documenting provider has reviewed patient's vital signs: yes Common normals: oriented x3 Lymph Lymphatic: no lymphedema noted Cardio Common normals: regular rate Rate: regular rate Peripheral pulses: posterior tibial pulses present and dorsalis pedis pulses present Extremity Common normals: normal capillary refill General: edema Right lower extremity: upper leg and lower leg Left lower extremity: upper leg and lower leg Neuro Common normals: oriented x3 Results Imaging Venous US: Radiologist's impression: Heat induced thrombus visualized at mid/med calf college coach and dist/med calf college coach. Non-closure of the mid/posterior calf college coach. Assessment and Plan Assessment and Plan (1) Phlebitis and thrombophlebitis of superficial vessels of right lower extremity: (2) Varicose veins of bilateral lower extremities with pain: Plan Patient in today for follow up ultrasound of lower extremity following treatment of EVLT of right leg perforators completed on 11/06/23. The plan is for the patient to return for EVLT of left leg perforators.
--- NOTE | 2023-11-20 08:17 | W.VEIN ---
Discharge Plan Discharge Disposition: Home, Self-Care Outpatient Diagnostics: [facility] Facility EST LMTD (Routine) Timeframe: 2 Weeks Facility: [facility] - Location: [facility] Ordered By: Trino Israel VC Endovenous Perf Ablation LT (Routine) Timeframe: 2 Weeks Facility: [facility] - Location: Vein Center Ordered By: Trino Israel Plan of Treatment: EVLT of left leg vice president of manufacturing veins. Print Language: [place] Citizen Discharge Date/Time: 11/20/23 10:19
--- NOTE | 2023-11-20 08:46 | VEIN_ITS ---
Patient Name: YRN RICARDO MR#: [id number] : 1960 Exam Date: 11/20/2023 Ordering Doctor: DR MARCO PATIÑO M.D. RADIOLOGY REPORT PROCEDURE: VC EXT VENOUS RT LMTD COMPARISON: [facility] EXT VENOUS RT LMTD, 10/15/2023. INDICATIONS: I80.01 - Phlebitis and thrombophlebitis of superficial ve... TECHNIQUE: Lower extremity nuñez scale and Duplex Doppler evaluation of the deep venous system from the inguinal ligament through the calf veins. FINDINGS: REGION: Right lower extremity. THROMBI: Negative for DVT. Heat induced thrombus visualized at dist/med pointer helper and mid/med pointer helper. Non-closure of the pointer helper visualized at mid/posterior calf. COMPRESSIBILITY: Normal compressibility.Non-compressible segments corresponding to thrombus FLOW: Areas of no flow. Areas of no flow corresponding to thrombus OTHER: CONCLUSION: 1. Successful post ablation occlusion of 2 of the 3 treated lower right leg pointer helper veins. Dictated by: Marco Patiño M.D. on 11/20/2023 at 09:41 Approved by: Marco Patiño M.D. on 11/20/2023 at 09:43
--- NOTE | 2023-11-20 08:46 | VEIN_ITS ---
Patient Name: YRN RICARDO MR#: [id number] : 1960 Exam Date: 11/20/2023 Ordering Doctor: DR LEONID SCOTT M.D. RADIOLOGY REPORT PROCEDURE: [facility] EST [facility] - OFFICE VISIT FOLLOW UP [facility] PROGRESS NOTES: The patient reports improvement in leg symptoms. There has been interval reduction in lower leg swelling. The patient has followed our recommendations to walk 20-30 minutes once or twice per day since the procedure. Physical exam demonstrates decreased swelling of the leg. Persistent swelling and varicosities are identified along the leg. Review of the ultrasound performed the same day demonstrates occlusive thrombus extending throughout the treated vein(s), see separate report, consistent with a successful ablation. No thrombus extending into or beyond the saphenofemoral junction. The patient expressed a desire to proceed with treatment of remaining incompetent varicosities. The patient was informed that treatment was a process and would require several procedures/sessions. VEIN/[facility] EST LMTD IMPRESSION: 1. Successful ablation of the 2 of the 3 treated lower right leg incompetent sales account leader veins. The sales account leader vein within the posterior calf was very difficult to reach during the procedure and is not occluded. 2. Persistent posterior calf sales account leader vein and left calf sales account leader veins and lower extremity swelling/ symptoms. PLAN: 1. Endovenous laser ablation of lower left leg incompetent and dilated sales account leader veins. 2. Endovenous laser ablation of lower right leg posterior calf incompetent sales account leader vein. Nurse notes, history and physical were reviewed and confirmed, see attached forms. The nurse was present throughout the physical exam and consultation Dictated by: Herman Patiño M.D. on 11/20/2023 at 09:43 Approved by: Herman Patiño M.D. on 11/20/2023 at 09:47
== END 2023-11-20 10:19 | disposition home or self-care (01) ==
LOC: VC 08:44
PROVIDERS: PCP Radiology Diagnostic Radiology; Visit Provider Radiology Diagnostic Radiology
DX: I80.01 Phlebitis and thrombophlebitis of superficial vessels of right lower extremity (principal)
CPT/HCPCS: 93971; G0463

== ENCOUNTER 2023-11-28 12:58 | Outpatient (OUT) | payer MEDICARE, MEDICAID, SELFPAY ==
--- NOTE | 2023-11-28 13:01 | VEIN_ITS ---
[address] [address] Patient Name: YRN RICARDO MRN: [id number] date: 1960 Sex: M Assigned Patient Location: Current Patient Location: Accession/Order Number: [id number] Exam Date: 11/28/2023 13:01 Report Date: 11/28/2023 14:17 At the request of: LEONID SCOTT Procedure: VC Endovenous Perf Ablation LT EXAMINATION: VC Endovenous Perf Ablation LT COMPARISON: INDICATIONS: I83.813 - Varicose veins of bilateral lower extremities w... 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 A sterile cover was draped over a 16 mhz ultrasound probe. Venous mapping was performed prior to the procedure noting location and size of vessel(s). Antenna Specialist vein 1: Posterior distal left calf. The diameter of the vein ranged from 6 mm's below the muscular fascia to 7mm's at the entry point. Using a 30 gauge needle the entry site was anesthetized with 1 cc of 1% buffered lidocaine. Access was gained percutaneously, with a 21-gauge needle, into the plastic extruding machine operator vein under ultrasound guidance. The needle was advanced into the desired position and the pre-measured 400-micron fiber was then inserted into the needle and locked in place. The position of the fiber was imaged with ultrasound guidance. The fiber tip was visualized to be 30 mm from the deep vessel. An anesthetic solution of 5 cc 1% buffered lidocaine was delivered along the course of the vein under ultrasound guidance using a syringe. A final positioning check of the laser fiber tip was performed. The laser was activated by means of a foot-pedal and the fiber and needle were withdrawn together in accordance to the desired joules per treatment area/spot weld. 6 areas/spot welds were performed, and the total number of joules delivered was 227. The total time of energy delivery was 28 seconds. A duplex ultrasound revealed compressibility and flow of the deep system immediately after the procedure. Hemostasis of the access site was achieved and dressed. Antenna Specialist vein 2: Posterior distal right calf. The diameter of the vein ranged from 4 mm's below the muscular fascia to 4mm's at the entry point. Using a 30 gauge needle the entry site was anesthetized with 1 cc of 1% buffered lidocaine. Access was gained percutaneously, with a 21-gauge needle, into the plastic extruding machine operator vein under ultrasound guidance. The needle was advanced into the desired position and the pre-measured 400-micron fiber was then inserted into the needle and locked in place. The position of the fiber was imaged with ultrasound guidance. The fiber tip was visualized to be 30 mm from the deep vessel. An anesthetic solution of 5 cc 1% buffered lidocaine was delivered along the course of the vein under ultrasound guidance using a syringe. A final positioning check of the laser fiber tip was performed. The laser was activated by means of a foot-pedal and the fiber and needle were withdrawn together in accordance to the desired joules per treatment area/spot weld. 4 areas/spot welds were performed, and the total number of joules delivered was 169. The total time of energy delivery was 21 seconds. A duplex ultrasound revealed compressibility and flow of the deep system immediately after the procedure. Hemostasis of the access site was achieved and dressed. A 20-30 mm compression stocking over coban was placed on the treated leg. Post-Op instructions were given, and a follow-up appointment was made. CONCLUSION: 1. 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
--- OUTSIDE RECORDS SUMMARY | 2023-11-28 13:03 | XMS_ITS | CCD ---
Author Organization [facility] Inform ion [facility] Care Team Providers Care Change Number Operator Name Role Phone SERAFIN SHEARER Referring Unavailable LESLY MELCHOR Primary Care Unavailable SERAFIN SHEARER Referring Unavailable LESLY MELCHOR Primary Care Unavailable SERAFIN SHEARER Admitting Unavailable SERAFIN SHEARER Attending Unavailable LESLY MELCHOR Primary Care Unavailable Lesly Melchor Primary Care Provider [phone] CONSUELO DELGADILLO Referring Unavailable LESLY MELCHOR Primary Care Unavailable Lesly Melchor Primary Care Provider Lesly Melchor MD Primary Care Provider [phone] LESLY MELCHOR Referring Unavailable LESLY MELCHOR Primary Care Unavailable OLAF CAIN Attending Unavailab LESLY Cnocepcion Referring Unavailable LESLY MELCHOR Primary Care Unavailable [...] KAREN ZAPATA, LESLY To Primary Care Unavailable LamAi valadez Attending Unavailable Prateek Cormierah Admitting Unavailable KAREN ZAPATA, LESLY To Primary Care Unavailable Dolce, Srinivas R Admitting Unavailable Dolce, Srinivas R Attending Unavailable KAREN ZAPATA, LESLY To Primary Care Unavailable PETER Redmond Attending Unavailable PETER Redmond Admitting Unavailable KAREN ZAPATA, LESLY To Primary Care Unavailable PETER Redmond Attending Unavailable KAREN ZAPATA, LESLY To Primary Care Unavailable PETER Redmond Admitting Unavailable Dolce, Srinivas R Attending Unavailable [...] Srinivas R Admitting Unavailable Dolce, Srinivas R Admitting Unavailable Dolce, Srinivas R Attending Unavailable KAREN ZAPATA, LESLY To Primary Care Unavailable Dolce, Srinivas R Admitting Unavailable Dolce, Srinivas R Attending Unavailable LESLY MELCHOR MD Primary Care Unavailable PETER Redmond Attending Unavailable PETER Redmond Admitting Unavailable KAREN ZAPATA, LESLY To Primary Care Unavailable KRAEN ZAPATA, LESLY To Primary Care Unavailable KAREN [...] Unavailable KAREN ZAPATA, LESLY To Attending Unavailable PETER Redmondine Admitting Unavailable KAREN [...] [place]mond[place] Admitting Unavailable PETER Redmondine Admitting Unavailable PETER [...] Propensity to adverse reactions to drug (disorder) [facility] Repository Medications Current Medications Medication Drug [...] hours as needed for pain. 0 Active [id number] 200 actuat albuterol 0.09 mg/actuat metered dose [...] aftercare (1 source) Drug therapy finding; Translations: [emt intermediate (current) use of anticoagulants] Onset: 9 12-03-2018 [...] Interpretation Reference Range Facility Wound Care Noteon 11-25-2023 Wound Care Note [id number] Wound Care Note [id number] [facility] Summaryon 11-13-2023 Coding Summary HTMLBase 64 OrwlexwdOZy4wDr+PGhl YWQ+OQ1QRHVnG13bwMIb pX0yO4ABXJzLZqkqACVM SDwQHmBvbrLeGK0udFTe ZXJu IC8+XG4vYHSlWsqllTTw o4H4qHQ1H64ypj3bZHxn fQC9WIScEgEhvsevm4iy tJb0OWdlMiluFdRv WCVesI18UHD1kB36Ws97 aECytWMgs2bmaBc1GrRk WDWfRGR0jTiiKNgxv5Th WHIkM25ktSQcf6P1 IGNvbGxhcHNlOyBlbXB0 oF9eKHylamqws3kkwrys Ukb3ex03nPFrw8H4xOP6 U9SiavP2ZZOknETv UngjhOIMkB2lvkfng1jv znijJoJfXNAyHZc2RMz6 JKCxeAaaRyHeXE47MEW6 CCXwifExA2PpARMi cHtmDmA0z3Y1Oo9XE2RY TxhdP7NWTKGRAVmchTR+ KA84xh31G0StVbunKxr2 PFHtYTN5hIQ5cH3o RIRjADfpv2V5dVV4Z7Xl rfEcjy3ud8yhTJCrGVgk M23vmIKkd0U0XNPjlYB5 KIBzkOswOhDcpT65 Oyc+BFOrcDyyk7HtScwe o0utw1mmrMs7WeidILIx keValWbqAFG6g8GoTi9e ZCPbkXK6aDF3zV5s IwUjYlR7CEhzI697WqPd dIVoFkdpX99gN6HguDK+ UHQlTgp3ILPllEvuSW8e J9NlZRHyovblcBHo zHtqHV5eKYQohnteCYUn nI3wTESdM9l7PhHmQqO4 LDvcB7YtJVEtkmqlXc05 yD4tUtKmGuR1FGrg M9KargD9IDMvvJMhKHua DSY2F71st0B9SOCbAUPz YQE1qWH9kS6vqUbunsoz bGVmdDsgdmVydGlj IWsmRTjhM238JUPpaQag PkNvZGluZyBEYXRlOiAg MDcvMTAvMjAyNDwvdGQ+ ZROiTDS3wZgvAVUu wSHwYYerDn4jrDgvtBns IC5nVZDsbyupXVJfnE6n IXCnmACsdBrgGO1xCYCe lpxnk560PaDyEAC1 FSSwkOSoV2RvqV1qAnOn WARkJNWaC9WchQWzEMty U358BXitYfS2CERgidRd C7NaJDNzeUvkNeM1 o0A6Rd7Pk3ZsllkiK0Ux oGAbYwPlDchdIAd7W6Xu PjwvdHI+ZY39AGHkSB20 UCu8VDS5eNtlNVns RVIwU4TkeN8cApIsIEYv ZGRkOyc+PHRhYmxlIHdp ZHRoPScxMDAlJyBzdHls PY6xAe2hDKRhXYXn wPfwjOInPsIyi0bpUCYg AFyyZJ2arYtbH8EdkNO4 ERAvh6x4Hy27L38jL4Qp dXA+PNLbtOS3gOH2 oL8cZnIhIwA7BEjzM203 QeVaiXFaEcgtl2dsf6qr hEo2TdG6CMKtxcLqbDfe MPB6f2ExUr21J89t IHdpZHRoPSIxNSUiIHZh vGayho6mrV4gZd4+PGNv iRT2cZV4oE8mAoYtDxK9 SOyfJ372IwGmiGZo Tvaba2atp0vpgPm4TcUb UNYkutFsgMrsPNW6s5Fc Nz24Q9TivRfpb2AeQfo5 tb11yIOxn1J3bML0 D7IyGVKnbwhscYTciQoy YQ9kRZRjbfkfJYWfvN0y WGYwW3j6GcIuKzY6OPbk W1QfpiK4MNYabUXk CUIwjUCHuO7tsvjoy2fq nhmqPeGaWHFgWVr9PHr1 MDWxlRpcDeZjGDL2AvW9 LDW8aGVvsL5nbZno ekgbkO1pKxo+MCJ0uZLr xGTQBO6iUnszcJS+PHRk DTO5fTsrYKrhGSZbdI2d QBBwZ8j8UvGrYqO9 PEceR1SfmfR6YEBcxSYb YPNffKRVdB7zmavbh1jp jczyKgVtFWAyGDp6LCw5 LWFsaWduOiBsZWZ0 QrF5MVZ0lUCsiU6hiWnw rkswhD5dPit+QmlydGgg FWR0ZOy8F4XdEgp6MSSj sQwzUX8qjMWaINyk Hi9cdPyggVbmKE6wJRZt cycsn302NqAzn6mhKRYo qMTjALgfUIZ6T99zb6S7 CZStNWMzHSR2uPO1 dW0ckLaxbyqwiUZknVsl ufAriNhnKTivBJdaV894 DEOksRksDiZcMRu3N0Nh Zku6NGOnzTekIQ2v cHFpJTjrIt6qlBzahCmb DB8uDZQpljach368XwYv w3dxBNBbuCFiFDuhLDL6 R72fx5E4VVUmLFSw KZW1nVM7xA5rsKhryvyr bGVmdDsgdmVydGljYWwt FPfyR974YKPenDsmElVi bZt1H7LiWgb4QTDa iDphQC3xuDFmWXqkWv1i uOdgaHwvYZ7oDVCkatvg h284VfUpg4gzJBTjhOFn HBkcNVO2Z99uv8U8 UFSqCKZkYKX7yIO7gN0w bGlnbjogbGVmdDsgdmVy zUnxZCmxXRwzE241YAKy cDsnPlBhdGllbnQg DZuwJSa7V3DyOrxneVR+ SZ30JLMnKS72jARavIQb v8vqsTk3RkNuMQSlGVL9 jJahCXxty8FuAMYp R82zbNTog4Z4CBLoiJcd fBBnAzLcuDI5vK5zOTdd cudsi7exftzeZrcxy2lo yc59iQ47L49dOPrh ZHRoPSIzMCUiIHZhbGln dn7mtG8bDs6+PGNvbCB3 pCO9cZ4dRVVhLzV0VLsa B045LfIeuIQcYwlq j3zby7aonOw1WfK8VFSs ezGajUmbRWB5x1NkOe55 E45sIWxsTBZpLFMgATFk TMNztFrabf9hnB0s Ii8+REVktBP4nQM3fN2k ZpRjVeN6YCnuB941ZxCk iXJvZsdyY63aC0IjnWJ+ CYVxYng8VVYtrJjw KD2iyXGtGAyzJe5yOAV7 KtUaKzYbGBrtO5JxQMJt vgbxedwpfBF7OAYgQACn rV28Sx9tfOidVLCy wLXDvL0djnhhg3cwfcqo JkFpDVIkKVi8HAx6BFMc qTsjShYwCDP4PyF9FDM9 uBDdaY2isHridbwe xB7kL9BuGXWjsgtmBq36 eB0jJqPwQaS1NFlsFme+ Z0ZLKjklMZ6PE9gLYMbz SzwvdGQ+PHRkIHN0 xYrvDVgbIXTxcW4uGLNe X0n5YlHjIkR2RBtpP3Mm PUErvbnfEh80gE1eCmWr WnB0DVxhB2BlmsD2 UFTskRTlZClhKKP3U13s f2P2LXReDRSyIJK6cAB5 cT0dcRbimpcsqLRgqNwb dmVydGljYWwtYWxp Q674VLQafWkrBcYpAvU8 UtI0DjS4W5LyJot0YQIc kMtpBJ8tuSCqDGzcPd2i wLupeZobFI1bZDFy ovksXAMcdK1jHXRavPAt aRlaPK0cFPElfymxp049 TgPmWQG3CSRqlKZeQ7Iw yQ8zUhIyIFWeEHPi F9OapFAbEVulE287ANwe ByR5XMMybwExW0TkUALg hZmoCsI0r4A5Nz92WAIF ZWFyczwvdGQ+PHRk XVY1fMonMKzwBGCbhY1k QBQrM4q7FkGwRnQ4JIso W4ZlVMWwlmklMp32yQ4r IeGjZvP9MLzmK5Md xgQ1HFAshRKhLRlvHAN6 J39tf6D0CFTlSGRlKFD0 wDR0aD7jyJzajwmjqGPt dDsgdmVydGljYWwt NAhlF143KRMjuHanEs2Z ZZZ1B7MnQex1LEOkiDor LB1atMTjSAmiAp1brDpy qGzqTP4tLDKkktqr PNKpbW9zFODlbMSgaXlh RJ9kIMRuipewa570CeSl QEK9HSGvaOJdM5WhwU3u KnEpJOJjMFEdC7Gr cQNhANumD859VGrcPrC5 GJJbwsXmW8LiVEWznAhe NsA3n9X8Di7NUXzgcHC+ IA06fm70E0QyNyby Owf1PXMsVUY0dBA7rF5t BHTlSBuxt7H5pPR4S5Lp ulLjcy9pe7wfQBCfSNzn L22izVIya7S1OMVb aNQ0BJFwlZpvRrHioE31 Oyc+UFIjlQygh4UbPrjr w6fxc2cpkCh5RfNxBPDf riDwwUntWSV0s9Oo Lk41X66lKKopKWIcRGLu TJYiIQFeaSkjob8spT2c Ii8+LWSqjAM7vNR0vV6z EuWdZvZ7HWedA982 HiWcuYKzTzgxv8mmw2nn wDn5StHxOGIhmqImvOps MVQ1r1SbCx25C5LayMsa r5ZtRyx8kd63qJUj z4P2hPN0J8YhFGOnemyu wPEhwZwfAJ0xSTGfikwv XKZkoK6xIPUuF2o9GjGu TjG4MTkrF1XlceN8 XSAjdKXePQJtqGYPzB1x tdigw5qanbeoErSzBDBz GHw4DAc6MVBjeMuqChXf VXY5WzW9BFJ9iVBd vW1hrFybkuascP6cYhu+ OEd5r8jgfMZfOP3woBV6 CX32VJ95eHSsj4V3sEQ3 N8MmYZMnvnuvbuuz xXX8KEWuRHEnwX00Vh9y eIgwNz4pOCGqIAK1VRPd aKJaG1PqvU3lTrLaZGHc EZSjG0SmqKViHCno Q147XRdxRlA2QZXqxvPk W6DtUMMqnUvxQkG8q3L2 Wn4YBV52VQ87GT43nIEv n4Y2mET5N5QuSITw xhcxxsncuLN9WGSyVKRc vX98Wq3gbJwoGw8lUXMc LVQ5FTWqvGTaR0ClaR9i ZuMyCEEgUCTyJ5Rp fIKjCEleX079DQmkDnI2 ECTivfHgF1AiQZHalUoj AsT4f0L5Wx1PXn68ED09 LI47gFWiw8X7wTK5 Q7CnUKJeiobmchtafTA3 NKHhHBQxkS80Yb6pzDrz Vw1nDEEdHXU6UUIxfFKa D5FvpM7qJiEsKYOd OENcL7NxaZVxHPxbB460 ZTkpBpB7MYBsqwZnM1Mu ZUJqePgrViO5x7H2Lu3Y CYrwhgl0L1GgGcgt dHI+EW83PPRlVT93cWWe uVRqs5gywPv6WlLcHDKz HSY8dInjHVmnf7KtMXNu W72quLXnh1P5CNFb bGx (more content not included)... [facility] Coding Summaryon 10-30-2023 Coding Summary HTMLBase 64 QsixnomwQKm6oOt+PGhl YWQ+UY7GOLHrS28ymCGz xI6dP0KABXoKUrurMUKN ZLgFUjLohxPkDA4jsISs ZXJu IC8+UC4vXCOwOjfzfMOg t5T5oDB5Q68gpi2vEZiq xGW7NXCdMnSbvqkiv2ml xHs9QRdmTltwCkLj XICrcZ27QZH9kL40If40 yXXfyNMmw5qfjWj0XfOc DFLeTGC7vZecAThzl2Nb PHLzQ29wkMFsi4S9 IGNvbGxhcHNlOyBlbXB0 oQ5xYGzcrogqf0gigijf Ehc4nl01bSIjb5I5rAA0 J4DvimS3KJGghOOb QophqLMWeF5zihprh7nd zrcpVuTbAHKhEMh4ZPw1 JOAwiHbtTwQmFM51TWR1 KVYcxsThV9VuIHMm tGirHzS4y0Z7Jp4XF1KP GjhyG6CSDVQSLBywsCS+ AW94fa75A6FgHncyTpz8 MNJfAYB6eBL6fO5o FSLjDXnqy0H8oSM9I1It qlWrfo0ju1iqTWUgYWji X48juUHmu2U1QJXwoIC4 NSXjuIykVkOfpE36 Oyc+GJKhjBrns7MuSfsd w6inr2vsvZk1JaswMOFa svPijYouBAJ2r0SuSx1m IWRkpPM1uZW1aE5b AhHbGnU4KFdfK519YdZm mIWuIvriF51lV2DrdZX+ YGFvMnn1MWDuzLnvOX5m R7HkOSCslcuirVCe qSxrNM6dPNXnqdzmEOSx sP6eJEItC7g4WpPgUlA7 IIsfW7YkKCRvnwczGz93 nC1eTxHgSgL5IQir Z1HalwW6XSPzwEXxCAoh OLO4B74fi2L4SKTlHDQu SPK7iPQ0lW3epIgmqwuc bGVmdDsgdmVydGlj SDvtARkeK554CUCiqXkb PkNvZGluZyBEYXRlOiAg MDYvMjYvMjAyNDwvdGQ+ CVEkKFW9pTgiIVKy pCCaXIbqKm5ebQobxCjp RW0fUTTdnewoAFWmxO6x ITLjyWObzTleZP0gKLZh xcrrj530MlDvGDN8 LRPqxCUoB1FqdE3dAiGl YCKvDONgK3FwmDPbLMmb N863CQqkBpG2AJAmbjQk N5QmDNMmpQarPzV3 g6F0Ct7Ev7FonegxF0Ws oMMkAoZtMkayCWw8C3Da PjwvdHI+XD46QLVyPN84 EMo6UTO9lHvhZFju OTVwD2GsmY6nUcPbJHNf ZGRkOyc+PHRhYmxlIHdp ZHRoPScxMDAlJyBzdHls WU7gTk8vJWUpKHNx yUiziCVhXwPox5gfNNBu WObbOM3bmOakC6SbsKV3 ALTqk5s2Bq04G52hR9Zx dXA+OMPqpFB2dLM6 vN9dMaAzZnD2VVoqX050 FhXrnQXtFxbkf4wmb6sp jCy7WrN2MXJcupTpqIrl NAU1r9NhJi55U00d IHdpZHRoPSIxNSUiIHZh cRguee9qpO7dOn9+PGNv iNN3oSJ4bF8aOaPmJvP1 IEghV065DxXttBUt Chhfn2hkc7ftqOz3GtIo PPVxywIrwUzoUWF1y1Rm Ml60Q0UhmHjdl5LdYaa3 nm64uJOno1H1tHT1 B4OjXZXvwtukiWXorEtn VA3eAZIvhteuLCRiiL6q IQMyQ1v8PxYhZhZ6FLlp I2NjbvF1QBMbdRRi TATogIRBwT5qgxbvd6za zxjwTzNrKKDjFIf2WSw9 ZEAgiFunYrJvESI0OqM7 MFN9tFFomL4nyOck pdtqxI5sNzr+DFH9mJIn aBYJAJ4sUhahcBM+PHRk LAG1sVqbTLjiSGIotZ7g HKTxQ8e2SrHxFsJ3 IJjbJ4PgatC4ZWAznCXx MOJuxQTMjS4qotbrk6sp pzqoHgSdWYWhERf1XDy4 LWFsaWduOiBsZWZ0 MuT2PXC7yIEijU6ysSee xiqzkQ0iIjc+QmlydGgg GBG3JUx3U2XaAzb6GSWh xMxoEM3lmMTjYDkm Wk7tcDvuqWflXS9mVYPe ypcto301ZcVyq2yvDCMn yIIvNGdxCDI1J44ly8V3 OSRaBLFyHEO5qPP5 xT9orXrpiidqkVIzoAbq teMgsOtmDSkjXBxaR605 PXWdyVrrEiVnDQt6V1Kr Osu9AABzdKrwKQ9n lUCkAQgmAm1bqQoafVwg DK5pKJIjygrki374SoGm p0gfLKFbyRIgNHowYRM6 R54la7H9OQKoUHLp TBK0jEG1yO9bwZlqdlio bGVmdDsgdmVydGljYWwt ZPcrQ179BCRakVhsQuPv bFy3N7AgCgo5SLGx yAysAW8yiPZxOIloQy0f yOdhzWvhUM9tSEAoanbc x033JiRwr0ynUAXwvHLz ETmsYJJ1A75bf5R3 PRNjLOBaXKN5jHM3jX0t bGlnbjogbGVmdDsgdmVy mWikTZzuPQqxB770RWRi cDsnPlBhdGllbnQg BNlgHJs6O3RoWrxerPZ+ WN69YRHlKS14xBFjlYSm f3gepZj0GkLyFJAbKLH1 pAxxRGgiu3BzOJVg D71uqYKii4O7QRMkyPfn eSZjRbNpzNB2cS2rAXif kwblq1iwbxkxBault0fl mn18iE77X77fEAyq ZHRoPSIzMCUiIHZhbGln bo5twI1mTg4+PGNvbCB3 mUW8cR1zPWJsXvX1JNto W050VgLsqHAfImap a9tqk3uvdPx2AkF8YUAe sbEhsZksKPO1d2GcLc17 K41jFVlbLGJvYPGjLUUh TFErxAnvre0seG8g Ii8+OTUxjTW2fCE0qT5o WvSgBoP9BYwdF422QiFm xFQlZptqL78kJ4ErgXE+ CBJjNhp2YZObjThc YY8shBJnRHvpSt5bLBD6 YhSoHkNxZGogB1TeDZSn ulumumqlwHB0TMSlRISv eU63Jc0ibMliLOEv rOXElW5alwkli9zbtgdd QeNzGQZrSGk0XVp3ALNq jSrcChQxGBO2LxW8YHK4 jZXbdW9bqYdaoakj aM6oG7BcOXHltjmfIa29 cR1jBhQhXuJ4IKlnCng+ I0MXRncgPH4OH0yQQLka SzwvdGQ+PHRkIHN0 xHvmDFriGGYlgW7mSJMq N2y8EoZiOgL7MEjoR2Lr SMBqfsjgAm84zI9rOpRj RjR2KQhoX2HsxiL4 YRFfyGKeGZquDKR4N92u m1R3BBCmCSZdNEF0vWR3 dD6kdAziixzkuWYuaQin dmVydGljYWwtYWxp G598WCKglOptOdCuIeA8 CkJ2OgO5P4XlWnm5PPNe yIuyIS5zwMOtCCucZe9l vLlwsZitLQ5vGTCw eoltNQMagP4mRYBqsLUq uFppDD0tMNAndskxk608 MeMtYJN4JRUxyJPwU2Iz oE9mYzDzDQYaBOKc O1SzdDPfJDqzI838ZWqw PkQ6HJUfajGnF8ZkDEDo eRreXlS1l0I7Rb72DJOD ZWFyczwvdGQ+PHRk FAV7lKarWGrhOEStuF0s MVEnD1w8BjZvTcF8QBki Q2EeQTEwdfruZa99hJ9b QwIyZqV9UKsiS0Le yfT3GXTauBRiZLtxOAW8 M34ul2F9VPPgJZSmBJQ6 uVP0mL8nvOcbjrpleSAb dDsgdmVydGljYWwt UOcuX220AYSehItqAv1N NNQ8V5IvQeb3DDTytEwi UZ9gnZQfEHdmOg4sxPdr fXfwUI7gMPDtitjw ZSOucS8tNKKyzAGfoAka XH5bIMUvmfpjg086TpMh TME9YFNalWGcL8AihM2q GxQbCWAcJWWlK4Za rWZaIQdhK173TAqtUgC0 ESXspnRcQ9OqYRYnjAaw InO6x8Q2Je6PSXuesEZ+ JO04qo62F9FxTksv Gtc5AVLaPCF9lHS4sM3t TKKeCGdfy4R0jWR7M1Jy diGlkm6ss7ngMNTuVIxg R98luZDya4N1NONm tVP4VOTyfIkcTePhoV94 Oyc+YXCztRppp8PrAdjj j0syg8fnvBo4CgHmVWTy sjPbxGycZPJ7l1En Cn37P40zTUwrNTFrHVAt ATFfEUQrcFdqxf1xfB0a Ii8+FUUpoGD3bPW0sK3b DuPrIfP9YNvkM322 CmKspMLhWpxsq0qjv8ci dAp6OzWbBYVswhPnmHap XUJ2j7RxNj28Z8EbeMld g1XoSfd4vl35eUXs j2A4nDR1D3HsHWNhmoiu rNXzyNpnFJ3gOSYvyask RZVncO1wMCTpH0x5BzRu KwL0REbjX2TfjuE7 YBBupSGpPNCcwTHMqX4w xowmb0ovcekaMiKrXMRg HDt6JHy4CRVcuWywXzAh SBI6OzZ2OQK1aXBq oL8qpFodpdzcsS2jVln+ CHn6m2bhoLRyCH1vsHN8 ZU29FU28kTSmk0J6wYH2 G6OiONYehenpibez tLO7GYJwMCVrcO15Gj9v tPulVd6fKXPyIUB3BTLn iUGwV8GzcM6lHrGaIYCh VVQgK4IfpMMhJDcy I252EYfnUrB0YAOpayEh R1IwDGHslBheGqS5p3Y9 Ng7LMF27VC02ZP62jCOj w6W2yFW0M7SxXSMf hvnmiufkeTI0PRWyMPHw dC56Uu8tjPrfPl4iZUCc YET9BDJmlCYwH0BeiI7u WtGpMLYkRTMtQ7Gh kYUvNMvjW707EJhiFkX8 UYXpeaOwF1VlHOWimLrt ZoK3x0K4Jv4RQh92EX11 EU54gRRdf1Y2yKK5 B5IlRRGesyklpmkraPI9 MWXnAUGwxB81Fd9isSve Ya9sJUAbQNW6DJWntIXt Q4NmvW2sQnClRVYl QRExJ5MpoJAmFDsqT880 YVogKrQ6KKCfmoQhR8Rc GBHaqAvjCqS6r7F7Ve3U AAewwpp3C0JoQkss dHI+HW35SHHcTU67aDEr wDQap8lspLa0LuLtMDUi LBC0eFcbACpcz5EmLYBk U53ixJNsn1D6LORn bGx (more content not included)... [facility] Coding Summary HTMLBase 64 HlicnixyNQq1pZh+PGhl YWQ+OX1ZMPLoF66kjPUz aY5cR9LRBWyAPaejHVMT ZDrYYiDbukUvAA7joVRf ZXJu IC8+YL2pSNWsJiooyQQz i5J0iFO0B77agl9sZSeu rTA3RXScFfVxdahfq1vp gHp3HLtsConxJtXq NSQviA84UWY7kS29Vx61 hLPlpBGrv3qgtRz2QhHx CVWnTMM3wZdaFBgiq1Hk HBThJ90wdJPqr1C5 IGNvbGxhcHNlOyBlbXB0 lE7bQFaigoofx4jwpcmz Dir5gn55iRIkm4F8wUC3 E3MwzxK2DJBdwVDc FpircRESsM4ceemxc1vk isqhPqHbFGTqCZi4NYv1 WNPgcEtoLlGqYL18SYG0 KKOvukLnW4XcSPGq vQryJmL7q5S6Ss8EA4GD OjkeV6ZWPCUTEXdjvVK+ OP54xf82W3ZdLdloNkv8 CDDnQZG2rMF9rR8a PHOrVQlwl6U3uZS6O4Js kfCrgl7ye5ecOZWpHLnm X55acBYzc4C9VTYjuBY5 DIGwfMtgVwEzmD71 Oyc+GGAnpVtug0FsUpqu k3zse2apzWh4TwzoVYLp mgLphMaeIEV7m4CaVi3g MGCtcEG5cNU6hM0k IvDbEoG2DXpaY760CiRi rHUsDjtlH15lO1RsyUD+ ERFeUur3NJLzsEcfAW4z Q5LiLAOlvltrkQRy lXwaIL3yGLUjuwriLUDa sE5qXFYlG2w8TbJyFdX1 ULryW8CdOLFkoatsLa83 dL5vGlQqSuD2CWum X4EcjjA9VHEwnYWmWRhb NFT2S29wo9C5TZHvOPPg VOX8kTZ6lH7xxNhapnhq bGVmdDsgdmVydGlj DOttMVneE463UQRlmXzh PkNvZGluZyBEYXRlOiAg MDYvMjYvMjAyNDwvdGQ+ IDKtURR0yPjxIELj jWZmGAstTg4qtYlxsHef US7yNJShrbvgLOJjzH3o CNJoeJCheAfuZV5fLFQs arqfc829JtOoRVA9 FWLmhLAjU3RxsZ3lTdZx BPNgEXAzF6XkvIDkOPfk E455MJbwTuM6WPPiyxRb E1RaOOGrfFzwHjZ7 h8B8Mn3Kz2DibajmW9Vp lNXlTwOoNfjgXLn1R7Ab PjwvdHI+TX90KTYpEF27 OJn1XCF6gInvARwc ZGBoU1BcnB1jJkStBQGp ZGRkOyc+PHRhYmxlIHdp ZHRoPScxMDAlJyBzdHls IS7bVf5jFGVxRJKs mGpogDXeXkMem8esDDKh HMqgBQ1ltFwjK8YgbUT8 ZIZyt1a9Uw28D50kU8Jp dXA+EKAaoDR2vHA7 jQ4cBjYnMkP2LWrjS501 ZsBnfIMgLayde0njq4oj tLm1NvC9MNRjqvNgdKxy VST5j5OcGs41C21d IHdpZHRoPSIxNSUiIHZh nHsned3dfS4gLc2+PGNv xZN4iIE2tX4zUkJxDdP3 EIcvQ038YnIgcJOs Zqvnn1pmj5cnvNt4VzDh DZZrpuQrtZozWKE9y6Dg Pe37D6GrlClcu1PjRoi7 jf67qBHqn5L8tTQ2 V9HtZCNvwagzvVBwxOax UE3pTUTvsqkpRMRooI6d TNCdK1e5AdCqCyO6KRxt J9DkyfM4PYKkpSYk KCChxDQClS3mhaeam8ud dngpEaElBUElOWh1XLy8 UZEhhNmfGeJwMNV3IoB5 SVB9mQWkrW0liOzi wxhrxO9mJaj+CHM6nKBl fXQOTD6bAhqlyLZ+PHRk FWZ2xNaqEJfjAFXqyH1l SQMxK1b9YtJhWmS2 JLfoP9SycbR4DIDqkGBp RFMbmDFCsQ1ofarta9dl thkhCvUkYJFlHOm0NQz9 LWFsaWduOiBsZWZ0 LkX5ORX4kVJknH9whWqo kcgjiZ9nJlv+QmlydGgg ONH6ILu9P8SxWfc7UTTr vTrzDR3kvKDhWRvj Go8qsQdjbEffBL9cJAMt opxxa342IcBsp3wsJBAc hKQoEWdcDWQ3E31ff5D3 DYEdTDTuNNT5pDW4 hR3mjJnylniytDEguOxi xlBxmFbqIOpkUTydT375 VUFbnQptFuAmPKt9K2Kc Bdo1XLJdfCkeFY8u iULbYIdmPx6csKtoxOzr NR5sLCSewqqrs223QcDt v3acSLBbyNAwPMfxFKW3 L24jj1J7PLQvTBLs EEJ7eMJ6gB5yjAaunvwj bGVmdDsgdmVydGljYWwt IXxlQ346STCsoFjvPjHo gJl9B7IqVet8AZMn yDliUY9erQQyWMdbQm4l eTxsuDiuZH7vNEKhctsj a685BmDqh1dvJXMftWKy VDgfKDQ4Z16yj4P9 ZIEgSHNvJRR6vFF5xG8c bGlnbjogbGVmdDsgdmVy hFiaYEqgJMbqG971DGYt cDsnPlBhdGllbnQg LVttQHg7X1MtLfyjhTC+ OX90SOTcAM42bMDfmDXi a0npnMp6RsVwLVTsVEP3 iIerESuwf5UqUTVh N00jsHTxi8X6ZTDzbMnx oTOzErYjmUR6aC3qJOlu nztig1gqkppeToctl7wv lm05bN68O17wLPta ZHRoPSIzMCUiIHZhbGln qs8ohQ5vEc3+PGNvbCB3 bZD3xE6kSYZuEjA6CSig G500KcCizEQuIkvp u0wqz2zmcNm3RnX8YOMi jxOdxKsiAHW2v6AvFl92 V95uRIkbKVNrEMUfHWBk VWQxvRosut6viK0a Ii8+BJKfyQR7yVR5pH5b WkSeMnV2GTzjN858EnIp mRVsBujoD66zC4GiaYG+ HIRhBhf3IRDbnRhn BG5myVBwBUjmVh0jFZV9 PoDsJfYuCEjfV5YcERFf etarztupvTH0DTYeOUBg rT11Ff6gzNkaZAHx jXXQaL3qqpwyw2uucivg LkDyJLSoYWq9ENs3DDPl qAyiSsDuEHZ6NxP1WJH7 nKReaZ3sxKdvjhfm kW7pQ4IdDIDstowhAz71 hN0pQsUxRmB1IHflBox+ G3OSGzpzSE9ZR4hTJEfi SzwvdGQ+PHRkIHN0 rPjkHWtuCLCidH7kCNVb C8h3WyQrQxD7FBjiN5Xc VQSaluqnUs56eC6xPaHw DjH3KRorC8BucbT4 KVRzsWLqPRbtKYM7S67z w1G5FCOqESZmHTF4sYH4 eM4gnZtriwwwlBFpyDwh dmVydGljYWwtYWxp X663KMHafYygOjRbEbL6 DcW2OdJ2H3BaBgo7KAQs fOshEL2vwUWsIYhxUm9n xSqrhQjkHC5nWBIq twtlMWQdrN8aZERsiXIu aOyuPS9zKICzozccb150 LeCqHYW9RVLdhACnM5Mq hG9wVzQxYRIaHIOo R9MgqBIiZSdsZ983NEit QxC9BJPdleUnF6FmUFKe aZdxSoB5x7G9Zv81YTFM ZWFyczwvdGQ+PHRk EQR2bTymJKarMEUezJ0l DVVjG4q5QyCwWdD9RDpp S1GwBOIuledmUr82nX6p IbVaWmB0HXrpU6Vp hbX1STFfsNKnQTnjANX0 T99wp8W0GUWkMFKrIEM2 qSP5vK5ajYcsffnfuHNs dDsgdmVydGljYWwt FQajU605HBKhqDqzVg7H JWI5R8LyZrd8KGXipXoe BN3jrVXfUCkhDr6smZmm aRzlNM6rRQTkjrlh QHHreQ2tIUFlwHPwgFuz IY0mOGCopelnn797LjPd JFQ8VIVjkSJnR1UdiB9m DxKqHJNxGDWdG2Bf xMRrNPfmK607NLukCkT3 RNNfdiOwI2BnQJVocLrm BbM0o7C7Yx9IJUkbpLZ+ GX99vz26K1DzZtzy Poo3BFDmGRA6eTT1cV3p MGHdOHtkt8G2iDK9O7Aw ctSmky5jb7boOROcPGmi J34nyRRcm7M6RPGx yPL9YENqwEfwMmJtiU71 Oyc+XZOtfSizt5PgFety j4wno6gwiIk9SySfBWUy cfQknVdcYJJ8g0Jm Ft54Y34sUQedNKRzXRNn DGHwVSVlyDtjnq8lmP1m Ii8+CCKcjQR9vAT6yM8d ZdUlPjD6EPnvU531 JrHvhUIiZiydg5kte8ux sVs6WrLpJIOolcDjjCsy VBV4n4HiDi50C8UaeVlf o6TsGtj4sm83cLUj k9Y7jIR0L1JzAAKadmbh uXDrlAbtSN8fGGKsgzmm WJWeaK4dSRJhB9k4WaEt FiW2RIdrX3QomtI8 OXBlvVYnVYCfeBSDsZ1q dkqho0ozjyfpKdDrOLLw WRh5PYf7VFCutRpbRsHf DJR0VnC2ING3yLSj fW1mnRsdzavutT5pMtu+ HMm9b2pslREfDT2maDN6 HX09HC49xQPya9J9tWP0 M4MdGDInwrjicdbq bDS3MNMaWZZgzD61Cf4k uUzgVa0bNLNiLQK5JFTq lJNoM9TjcA9wHvWrWOJq NWAmQ8EonEJaCQpq H869BZspQsU4WCHixjLb I8BcKUUeiDuyEnL1e9L4 Kf2ZJA77IJ20YH34gUTt q3R7kGW7J2ViKJQf jgvomeyofKV5NFBgMNBf sJ69Vl0klQveIt4cLHQf UXJ4BHHibMJkZ3ElhD9o OsVmYHInFZKrX2Jy lKYsODauT679XPynIjE9 SDThhdBnO1PfWLOagGuc GvT6b8A1Pr8XVu27OC71 SI30lGTvj7D5jIN7 G7NsRLVsjuemdopziPY2 PBDtEPUvzM84Ae8kpHth Cr4vSPCcSMC4TCRwkKEj T6KmjO2iMbPqIZTe PUVrL1MyrMMkVYmsL565 KQyyXdR1PCYhsuPhX9Qh CPKxrTtwDrG0x4J4Tv0B WDktqur3Q3JtEfjv dHI+QI23AIPuHA89rNIu pSVao6mefWv8AeGzZBWl HZD2pErdSFvpq9JgJUDn O81tfZTyy9M0YPYl bGx (more content not included)... [facility] Wound Care Noteon 10-28-2023 Wound Care Note [id number] [email or web address] Care Note [phone] [id number] [facility] 10-16-2023 Coding Summary HTMLBase 64 AjregyykVPf7qAe+PGhl YWQ+TF3MOAWeC74giFVf gB6zS9RPXMwXSkwdTEAM URoUGsGdegJxRW1ftELr ZXJu IC8+VP4tHAEaXalnzATi w5C4cBL3X08hsz1qPMfi jZW0XVBrJbChulubb1ky iFj0JAwqGebwWpHv SAGdbM23QZH2fQ84Ae12 jWRzdCFwo8arfDf9YxSa MMVsUAM5fCtbQKxdv0Lb QGRvG19brCSqo1T3 IGNvbGxhcHNlOyBlbXB0 mB3eLFxcwdycr1ozrwid Hrb6sv60gZGpy6V4fSV4 W3UnwoM0POYmuKXc KjeseTIKyX7yvrbrf7he nhdoZzQeAGOwSQy7THd7 ZHZckXhiFyDqXM03XVR3 JBZmsyExX7DtVWQw qFmpWoS9n5P4Xw3EL9LD IylnB3ZKXBHZMSmnzUN+ UZ69vy09F6IwGoxqRpl5 UYBiTQS6gDH3eZ3d WAXtTKqtc5Z5gIF7C5Hc bbGwec7xd2acGPSwQZaf J69ziWJxl8X1PQWmiQW2 EJYtdOffIjIvqF79 Oyc+YJFsvJkil3CoOohd v7fbe9bnyKg5PcbnXGWz nePvzDpgGHL1b1WwQt3s NDCieGZ3eHA0pY8b YiJwTcC7YIhcL514CvCi lQIiOjniI82hX5AyjDX+ OKIzZwo8RUCfxRzkHG3w T0YeZVTyhknhlIAn bLxbSR7sKNAhflbrPVFf sB1aDSSbG8q7QpAiWvH7 SXueH1PgMWJsagruNh17 uM7mBbIaIuG1UHgw Z5LoxeI9BXXxuETwBFtr RKM8D11lt8M9YQRiTHXo RXO5nKV5yF3imXaqqdjg bGVmdDsgdmVydGlj FOvmKZzdV885PTYdsHec PkNvZGluZyBEYXRlOiAg MDYvMTIvMjAyNDwvdGQ+ RZEsXRS1zBujNGXf qOQySOatDn3cpAumrHzg JA6uAAKywomsAVYkdV7j NZCvhQQgsUrmRJ2uQTSg ccfld007RaOhOQF2 HZElnRXqP4XtwZ6vVwKd HYWmDWRoX5NzkZXvXJhs U414OQveAvQ6TVFqicAj T4VeKDFvcFmfBkP9 l8V1Fl3Ht9PmuujlF6Bf sNSqNkKdWbtyTPw6L3Tx PjwvdHI+CZ33ENPrXW78 HYn8NAS3sKdwRRtz YKZgL2RkwF5lAaIbMBDe ZGRkOyc+PHRhYmxlIHdp ZHRoPScxMDAlJyBzdHls JS2oOt8eFQAoMSQo uIjcvQKbWtGkg5izNMPq VDbsJM7jgJonO8XhqWH9 NQYee2i5Vu25G45nY2Ld dXA+EZIkdIS8eVD4 eS1qBpYcLiH8PSliW754 AaGxpLUiMryuh9evg7am jAv7RoT0RDWwvqUccEhs KSI4b9XmXv00L83t IHdpZHRoPSIxNSUiIHZh gNtcnv0mxV7aKf1+PGNv vKA8qLY7mJ8wXpInXsU8 QSnwO888ViJjgAOs Quepq3imr4riaGo6FyBv OGNedbUqeWboJTY2m6Ez Li26F4ZrnUrvh4IfRjq9 tt22aDJqf3K5iCT0 B6NvLFButfvfoBCmfLtz PR5qUKIfjkryIXLklJ1e KESdF9t1MtWtVrP1FLvy N5SpseU4VMWkmWBv RSMdoNBOxM3sifvga9uy zfxbQwNrZEHdNCx9BGp7 WXKyiHpkYvMrLDC6VaS1 VLC3lYSwkH3tqCcp jheguM5vLuj+IOQ2oVFe oRWTDT6wDwwnlPB+PHRk XTY3aZrjZAnjOOPauE0x QRHzX7f0CgGuQvH5 RRxuN1JoodD9RDDhcSZw CPCbvSPFkE5cfhhsy1ge lbmcVzOdDDYcEHu8FIu4 LWFsaWduOiBsZWZ0 WcA8LUX5xHTauA0rkUpg bwbxtN5yGjg+QmlydGgg OXZ0WNm0X7TfElk3LLXp pErwHH9ybXSySFll By6oiSkwkPkzZY9sSZLa iulhn354HmQkr5khUHQo jWBrFEzqMQU3L77no6F6 ATBcHBRvNVC2aUX6 aE4kvZirycarrDYxgUjc ptFskBkaTDbzLMbrE150 JAQrnHjsErJnDMy2N8Jj Eax9HBLaaIkiOG1q yGClKIhzHk0ivQsimZne UZ6fSGVpvgauj289GdKp j2reRBJohIDwCUnoCGQ2 G58hz1L2IWGuOFRb FXY9bUD4fS2wmNihdfcj bGVmdDsgdmVydGljYWwt VKozS584MMTloHhrRjKy sEq9B6JhVqy2LLRv lSfgPV4quIKaPJaeZd7u eBzhsUglJF2uZOCfgdtk m461AgHxc2evXHMogSEh LHefFMX9G03jb1I8 ECJjIIWkMQN7oUL6wW8m bGlnbjogbGVmdDsgdmVy oFnnMUayMYiwL453HJGv cDsnPlBhdGllbnQg XZllEYt9E0MaEuybpCR+ KJ65QJObKT35hVIvpVQa a3jslGy4RgKwIMJuDYD8 wOivOZujt9ImLHJb N58dlMXgy3B6XIDuhFye pWIlOaSgdNR2yY6mCQce tffor3uyymmdZhsok0mn zp00gN63C07zUGhq ZHRoPSIzMCUiIHZhbGln sb0rlH8pGn9+PGNvbCB3 iQC1pR1mBHAjMtU7CGuh G905UjYtlMBoRiwc y5nhb8kxxWn0MgS6JFRf bjEtaFxzYIY9g2BhVt33 S19pSGryMMWbGUDcGCDt KWNwcAdlln8faW0s Ii8+SYYraMP3pPL4pK6m KbIdWfS9SKkuT889KbFl lJAiOpgsS36vV2ZziXK+ CYVnImp9FWZrdQsm XE0zvUTtHOumYe0nDWO1 YlUvZpDmXAylK9GfWERa xicuhzlnkJS5JEUbKYAq kM34Yp7ycDpdJPSu gUHQjN4tocwqp6bhxqug RmZtXBUfADa8CRo3ADXc vTuyNlVpVMX1PeX8BLS4 gPWbzB6jlPjvslcq wO4oH6RrHNAnyxfzRe39 eR6xPnXlTsO6TWkkTyd+ D5YWFhikTH3OY5sBMEjj SzwvdGQ+PHRkIHN0 tOfeNPgdRKRupD5mPVDk R6t9QuEuFjK9MGncC1Av VVTfqwgxXf64nS2iDwMs OeI8BIfwJ0HgooY5 OBOioBQmEDyjXEF0I78r v2G4LYThFYJmNVW9xEY9 wS4ldSbwqyzpwZStiTkp dmVydGljYWwtYWxp Y552NKVwfRhkAnQeMbB1 DjR5CqL1S8AdVdc2NGMe gNbmZR6plZVgXJmxEc1r aBukhOnyPG3fCLXo hjbeIOAnuF3tPSZtkUZz tLjmFF9pLFUjphcmk371 UaKmSTV0IKOifWVhI1Bp yH5tOiThFHNqIYGp V1SegKDcFZkxT146YFwl ZqR5VZCjgnSdC7ElPPEo tLelCjI2j5G5Zx45VLFX ZWFyczwvdGQ+PHRk HUW9vBkfPBwdPRFetJ9c NXHfQ8f4DwYdGeP6DUsw S5IyLHUapvgbMd83oO7e OxPpSrZ6JLnsB7Ck diC9YRRkaBFnDTfnJGP2 O67qo4E3AKOhCUYxEUC9 cII5iB7vaIcssgtwqGYj dDsgdmVydGljYWwt XBogQ428YRAqvJfdOq6N NZM5R9HmRdz8PUPjeRoo DE8atSRuRWkoXx4huUbz xYynPN6oERMkxxti CGHroP7jMIKtxGKqlBxc JM6zMOBxzmkbo164HuVi TTH9SUYlmIXtA5AbiG9q WuOyAYYzFOGbH6Mc fRQuBZuyU727RKkyEmV1 NEBbxxHgD1XvXHKpiYjv NwB8k9A2Zc7JUNsafRM+ PR94hb79F4HlBnvp Lrk3NXOcGGJ2cQZ0tW4j NEBpTWxqu7R4oQT6P7To noFanv4ch8gsFCSrQHxe E13fzTVri8X4ANPu ePQ0WJNkrEvpVcCdcG13 Oyc+BFAqnKwbc5YyKgkc g7yhj3frsKl1TgAlDVRo krDlkHwaQTJ7c8Yj Jz42X34dIVknPDEyHAFf EDDnWNXpgKtifx2nhH5o Ii8+SKXbzVD3xUX1cP7w KeMoNiH8RHqqK939 NsKfjBTjCwtkg7gfx0ea yEn1HpOdLBIgesEokRpx ZUU5p3QpTe37B1OrlKsp b6FeGmc4yx83gTRb h9D2sHJ9N0AhZCZqltyo qPSauRznLS3dQRXtsrfm FQOxzL2sAFKfU5c1JzJk NgD7ZYblK4YaxjN3 BQLmeTFyHBQgjBQPsS2p ltqym9brufogLqCvHUQk KYz4HPl8VKVawGpcCwJx QKN7SzP0YHK5eCHa tS1ppWabuopvkH6iJmd+ GHz8s7otyEGnCM5gyBP2 DW50DW76sVFcg7K1hDM1 D2YdOURojzaejnbw iAI1PAMdGXXhlS23Sp0m dYoxJs8hBHUlTTJ1IVWc gAVcF0GkwG6zEcGqMDOq OPDzO3StdAXcLBxt T549EQixYcH8QOXsafMl Z9LbNZMaqXhaMzI9w7J0 Sv8VHY59AH86YH09xABy b2D9lLN9G4GxGGPf wncvzofmhYM1AEQsWZXl gJ46Sb0trLojCz0eODGl ACO2PPOuwNUzW0IhuC7l WkLyMAHhYNCtG4Na oSTmSZseA109IWogKuJ2 KEUhclVrE9YwWXUgjQzm RwF7l0T4Lt3URf30WT31 EC99gXInc9B9pSF5 E9NiKXRclburivgsvET8 IZPxKCGzfN62Qk2czLsg Ig5bEGNqFRW4JFZmjOTp D0WsnD1tJmRcBKWb PRYrM7LhrDTxSEnlV661 HCpvXkE4EVHjavOnR8Qw DFViePnvZyC2y9Q6Fn4J LWyfaef3A8NmOxvy dHI+RK65OOJvCN45rLIk kQXan3caiPr6HwStCICq WVD4tRruSRres7KcXCLv N02auBYsr9W5JPCl bGx (more content not included)... [facility] Coding Summary HTMLBase 64 LvgbkyczUUa5wDz+PGhl YWQ+ED1VTPLkY50liKNy bP6gW0ZTHUjTWiteUFYA ITxUJrEyarQgPU9lcPJq ZXJu IC8+HM6wGPVbSbwejNOt u8R7hUF1K78lhl8kWBla jYT0BRDzIrRdrhdzd7pc kLo6BWojWnhmAhEq CWVsuE85PMA7cH38Vs58 sNCkaWJmm1cyzSw1RtKj MBOsNLF3vKejMEuzm5Uo OPEbH42cjTSyh8F2 IGNvbGxhcHNlOyBlbXB0 yU3yGFbnwbiew7ilbkuj Dwn6sd47tCVic0F7gVS5 Y0EchfR5BSAnzZRj JqjujFWCzQ0vwysrn6yw zjiiKeGrQKWrXCp3PPt5 TVZfnTjtTzEtLV08UWX5 ERCavlCtT1EfIDNq mOtwFwO3v9G2Tf0KS0VX RzzsI1QLWXOYJJvnrBD+ CA90fj72H9PzJgxfOpt2 UBJdAVA1lOV5aM0l MALvUJpgc7M8qYC3L0Ed feBerk7mq6gkNEErCWjo L15mmCQpy7Q4WIZueNZ9 ZVJhgWdvBsSxzB90 Oyc+FZQcdLknn0JjTjjk o2nkv3idtVo1WpvjOFEr ikIxcEuyZII1t3SbVp0i FSJenVQ8uDM6dQ0p CmJvUzA6XVayP414CeGk jWQuInhzP71mY5IqkUO+ TPDkYvo8JEIuiAxvHT9x J8WuMTIynlbjfZKd jCmcHD3lWXKwlkzoVSMq rC8mYRKfV7s8FzQfXfK3 IFoxS1TpRLJxzztdCy17 sI2wXzDnCtP5OFjj E6LffkJ6YINnrSDfBShe TIJ8G75yn6W0ULZdBQZd BOG7sYD2mC8sdWhenkkd bGVmdDsgdmVydGlj ORejQZnqY030VCWiiAun PkNvZGluZyBEYXRlOiAg MDYvMTIvMjAyNDwvdGQ+ RSDpPZH0uNhoFWYb rLVxLLxmUg6cjHmrmGby JT2nRGDzybpzPZMnqM8l JIBqrBGavIpjBM6eREMt mbywu061PhHbJBE7 ZVFrbFZiY0BkuS1xHnIf CXVyRJXqX8TucQWhZKan I805XBnrAyV2TWFljkMk R8QfFANfaDypFfO1 t2B9Mg5Ch2YngsokA4Zd qNQdToJpEocbANz5Z0Rm PjwvdHI+SK68YWOcMP86 HMt4EZQ8fFjdNFac UNHoY6HzuY0dDiDwJNGx ZGRkOyc+PHRhYmxlIHdp ZHRoPScxMDAlJyBzdHls PD4pJd1yBLFoDRLx sRmufTPnPkPao8dzBFPj CCvwLF5kgIzhA9YdhVE7 EDPrn8g9Rp97O54fY1Fq dXA+MPOqvFR7yUE8 rA6pVkVaItS8ZWdjT229 XbXbgPGgIxthc9rye8rx qBi7GjA3FCXtjlOpyDjq XIT4p1RrSh06D41h IHdpZHRoPSIxNSUiIHZh gMscjf1jrZ2mAe9+PGNv cSO2rIY6cG6pMkCkVqJ7 KGhqP213ZlRpyWYb Zexco7cby0vkiWu7LsDj AWJnrbQgvMxqDMA1k5Vg Uz56J8KljXgqp5MdPuo4 vu84eLFzu1I3xLP4 Q5RrAXZyrgukwZAwvGut JO8jWZHpvbbaQERyyL8q NBLpH6t4ZgAgNnB2QTyn K2QcgxH4JOIonSEt USYnbBWFuQ7gpsfzz3vs zmggBeMyMVVwQQh3WIp7 LYNquAuqJrHlQGI9LyZ3 UFV2qKTtfG4ntFnu jokaeJ3mHso+CNS1cLKc uEVKQX1gSbaljSC+PHRk WGU8jRijACkqUIToqA2d FDRqE8c8LiFpFkK1 WBcsF5BckpT6LYXfgKGn EXAxeIDRzF7pvrpud9wx vhqkPcSiKTCwZIg5SIh0 LWFsaWduOiBsZWZ0 ChR8PIY6fJYehF6pxIhs xgkheA1iUmm+QmlydGgg MLD6OZg4W8KdVvz3UEEb nArlVZ9yfTOdZEhg Dv3ygCkeeKugWD3hLQAc hyuyz763QtUnu0zqQODo nCZhAYclIGG9S80nh7I7 SQOhZVWlIDL5bFW9 hE3ftNiivbipeQCioEio dbPtuGmgFHwyOXuoW685 SPBpoIppSgDhKCu4Y7Zi Opo2WVIdtGzjZI4s oNVuKPcqUw3maXjuzKoc LB9jJYEomaqdn028VgNq z1ehXUCsxDOaJEnlGHG6 W12is6Y1OSSdOMTu KEV3iOV8kI5qdTzevucy bGVmdDsgdmVydGljYWwt AMswX215JHTsaMmpIyBl xAo7U8YyAvl7BTRx lBsyUD3onFJkMLcrXh6s lErybGfaSQ9lNKGouxwx p945ViBpm9lnBIOdcZLf OKxqYVW3P35ex4T2 SXRqTFEfRDL1lTK1mV1d bGlnbjogbGVmdDsgdmVy yKnlBZdxYPgjO401FWLj cDsnPlBhdGllbnQg BQhxIYd3Z1LxEidmnVZ+ UG91RHMyLB10pYBokUCk y8fwpUo2NkRyESCjYQC5 uZxpVTxuw5DiTMFd B85gkBShq7S6CDQchSmp aFJlZjOnjNR3iX0zIUvr rjozw1gvmpgnPulwp5cy fj26bJ52Y64oRTng ZHRoPSIzMCUiIHZhbGln hy3rmR6bFc8+PGNvbCB3 wZU2kB1tMBPkXbK1UVvq P570HzHexWRaIwig i0ivh6canKf3JsO8PNYo otIirCxsHBM8p3QiPy51 R14lYLsuAZOiTRXxDKFt LJNnkVpgeq3dmO0f Ii8+IAFcfEE3vPP2nB7u ItZqHtH6XBnfG805RsDw dBBmGwplF13fN7FknXY+ NQCxRut4RRAzrBre EF0vcNYjCTzrTj7rCIA7 VdVdXoMuQCapM7XcTXIa flgqzmeqkGN2HRZiIXAg qL47Ho9agEnpNTOb xOCLvJ8eiqite2tbdrkf ZcQoJRJkILm4GPt2CHKh rUzlStIjHMN5HsB5XFV1 uICyrR6rwNalrpat kJ5bA4KsJDRiiebeZx59 yS1dJwUjEfQ5IIccIra+ N8WSSachHJ0TC3bXUBxh SzwvdGQ+PHRkIHN0 pGbtYRfiHPMcvI0vCXMg R6s3CxUjSdD7UAgwH8Mt PMSwsygwGy73aF6rVeAz YfO8YGyeY5GzblB0 VQGlmSVzKDiuLIB4N73m b5Y2WITkKNQvKVC4oIG3 iH4pwCodvrwiyLMfxPcg dmVydGljYWwtYWxp K028FENvaOtpWvSxZsV7 VyN0YlX3S0WzEfh8XHBe uJpzMK0igCYcOMgtQl6s tUvdmTdgGX6yUGYi hkklPLYuaM4tRHYbwBQc kTflVL4rFZHvadmlm173 UxDtRLU3AXFmfFAjU4Qu cK4oWeOcUKPoUQWk M8OflULxJTvlB959MFdv XxW7VAPbetScV8RnAMPf mJvgNzR7r7Z2Ts08CGNA ZWFyczwvdGQ+PHRk OGC1gXizBNiqFGFajJ2o AXKbX3v6MtHkPbR0JHdv E0QkBWWhrvuwXx78bS7z RbYnCbW1BKruY0Zy tzW7LIPcaGPuKDykIDD9 X01lo7W3YYZvDYEhMJF8 nJW7qE9zdDvcjwedyWXz dDsgdmVydGljYWwt OSdkB135JEVkgAfqYe3S PRP0L2QjXsg3RMKwxPrr QN0tcOInSQqxVd4ocYce dKzmFN6lKOQmpqss DMUatN4bHZUgqZVdiVsy UL3dFRBjhpwle868GoVh UPM2DPEhqVAsH5CqkU6c ElIxPPDfIQHwP4Kz cSFjIZiqQ925FHphTtB3 YBSjzmIkW0QeGWNpwSod UkN0c7P6Ro6QQIqqaPE+ GH83cb10Y4PhQkem Jon8RJHcFBM9gOM5vN5j FITdCGhov9B7aJR8M1Tr hrClev2kg7qsNFKcMIlk I90qwPYml4Y8OWJx qTH7XYJtoQtcJgXqwK31 Oyc+BSZyvHufc4HwZybf m9qgj3myhDg8IpYgBYRe myZhgUruPMS9v6Hb Pw30O84nORwoPWYfMMGx RNYtLZIccAafpn5utI4i Ii8+PLZipDQ7gFM4dK0v KbYsDuY0JTsnD105 FnEjtNGyPzjgp7hew2ey kVh2BhFmYGVnjvVzoBih CFX9w0MrPd43W6VtgChn c9PzDel8mq74gHVk d5Z6kYJ7B0XrCVSfrmss bSLqaHzmIC7yNKZxwswi VEPkgF8oIQVuI0i8UsFm IvK2ZVrdF2BlwiG7 BGKohQYcHXVmoPZTrJ2m rhoxw4cuygbkFbZkTQQu QQv0EEn6MKUyzByvVtIu OQB2GgE8ANR1kXCf wM3blEcrlwklvY0tTah+ VZq8i5ujpOMdOE4hqLV3 ZG19QR80lPKqb4R8eXL0 A0HzIUVbrnhohpec eRR5RSUfYRGlqS88Aj0k qXppDr9vPLAvLEK6GIAe aSNfZ1YoxM2wPyVwWFVy OZPhG6CtcLGuAOhq K951FVrxBlC8YRInvrXg A4AgENVcaQvvJiQ3a9E2 Al3LZI07FV11KG40sYQr n5O7hZK9Z4MiVNQb npqpjltxmSI8NLAgCNBm xO34Hf6nhImjYc2yETNr ZXY3GBTvrWJrH5AtbT2e OrQlYIZnODMfR0Vw rJFmDNjcF705HTkjZrI0 HKGlzrGlZ1YtAKLmfHpg FgR9k4J8Gh5MDl20ZK53 IB26oLVab7C7xNM6 V5DhTOHyiffkezbbuTY2 LGVzSKEeiY35Kc3frWaw Av4iNZKoNHK4HITmcITf W9RwoW7lEsFzBWFa VLJhP1YprGGeIItvO874 RQbgKkO9XJLnupEcS4Yq DNUdbRlgEjF4z5H8Ba5L BFgjjmv5U0TnJaet dHI+LN97MWGzDP55vDGu pBQkx1uwqJo4ElJxUKFr DCW7cMjeQLxws6XvZIUo L32luDIac8O5WYPq bGx (more content not included)... [facility] Wound Care Noteon 10-14-2023 Wound Care Note [phone] [id number] #[email or web address] [facility] Coding Summaryon 10-09-2023 Coding Summary HTMLBase 64 RjymejcwVTc6dEs+PGhl YWQ+MO8HSLScA18xkBCj vC2bY8CQCKbMSrypQRFM QXlNYtJnkqLfNX3gtBDf ZXJu IC8+RH1qYHBjMvyqlCLg r1W6iIH2N91ijn6cKIaw dXD6KIBfCoUtanneo1me lAd8LEpdZjsaZeRs WRFirC02OGH8uO13Ze83 sNKfzFDeg9ovuBg7SxUb HCFpOSQ9tFrdFKeps8Ag DTLtM30hnBRpa6C5 IGNvbGxhcHNlOyBlbXB0 mC0eDTqahbayl4odoshk Rkv7wb73eRTib4N8rVW1 Q8GruhI1DMMhvGGo BjcwrTNZoC7grsvjc5uy lcupZaRjVIRxPPv2CEe8 TGOmfJkpRaEnDL22KTP6 VGYjckYnW4KdSICp eVepAeV0z7I5Us3FG7VA AjwlA9SISNMJDEwesCD+ VC86ez06E2JqMypwGlo9 PTMfKZY6oNO9uP4o JTLaRNeoj5V3eLF6E3Uw cbXuab2gk6voSWRqXGub Z93zxDCci0T0YSRwwWB7 SISidMpvCvWvkO76 Oyc+DZPffNxoy1QgUzfr z0nkr1ctkHf9OxlxMSWx udQveTvhOYM6r7SmRn8y BHRjkNF6oNR7aR4o ZrAmQiA3CTvlO242FnMm wAYuSmgwN02cK4QzwVL+ INClOqf9SOJjmHzvLD4f X8LbBXStytljyMYm cXfyKC0sGQPwsdfyVGTq lT2uUSTiH9v1KjUrNaU2 DHqpJ6GaKSTxlydnOl46 lB1xOxTaTrW6CQyh Q0SqkzE4JERfmZEnUZff LLZ7F30oy2S7JYLdVSMt QZS4xUT0sT2lrJdgczfw bGVmdDsgdmVydGlj BDudLXrtJ862DEIlqIec PkNvZGluZyBEYXRlOiAg MDYvMDUvMjAyNDwvdGQ+ ZEFdIMB7gKsbYBXh oORaBRuaMo0gxZxdiHnl JZ9dAIBjzigtCMBqdE6a VVIayAKcsVznQZ2pYIYa gyilx231CeDmOZS7 DSVaaYKpW3DauU4xKlYv TULoZXDqB5VklAGsDUya O120GNuaJtE8BHKvvbSy G7SlBPIwiVqeLcF3 g1S6Jj4Hd2SsaglgP1Bv cWUjRaDbSstjEQz5J9Eq PjwvdHI+YA01SGJlFB27 PRx5WAL9fDfgAVso ZYJjG2KmdW5fJmDdQULa ZGRkOyc+PHRhYmxlIHdp ZHRoPScxMDAlJyBzdHls JY7rNi2nJIKmGCTz jOonhJFtHrEcq3suUYSy TMhvEV9deMslV4NkfTC1 FLRul0y7Qj11G51iK1Db dXA+TZXosEC6xHA3 hW8eBoEcMlR6NSjlR612 BqYzeKNpAsxsn9abj2vu mOg6HdD1LGVtxjYymVno MAU9p3AmGh81S21y IHdpZHRoPSIxNSUiIHZh oStaub7rfY7aWz5+PGNv vQI7ySV6qK3yNnGdZgE7 IHyfZ632IzGxaEMc Vxtiv7yli4jitBd8MqAx OMSssoFhnQniIUS3i1Vh Of42L7BisSdfz9RdZqe6 rd14hSLbf0B5tXA8 P1RpAMIxcsfyxHTqjXpw PU5zDLRuvlewULFugE6y MMElK1s0YfXlVqO3GDob H8HiqzS4CIQxtTWz JWVtsRKQfC8szylip5ok pvelTpYsMDKnWVo9DKy4 GCSedTrbFvHiKMK9EeE5 ANG7iTHolS9cvHuq jqovyO7ySfm+LSZ5mCYj kUMDXN0gKjpshGZ+PHRk GHC5rXlwVVwpJOSwaO2l YCVsK3v3KmZzBdD0 OJlzM4JuuhJ7CMYbgURx FLPxaYQGzF2hkctlr1rq phkgJsJtVLPkHNa7VFb2 LWFsaWduOiBsZWZ0 UpI3AWH8hPDocG1rsLgp qiqpdQ5kRfj+QmlydGgg KHJ3DGg6N1TcBrr4KTEt oAbdHV8ygXVlGHke Xx4qlUvpqKgcAC9rFILn kebam225JfNqs0eeRJHy nNYvLQjiPGP5W67vf6W1 ULYfTORjHRC6wCK6 rU6mzNhfbkafwYTvpMyy pqIzqPyuNLhuRWedM064 JGHtiHlwMsHoCFt9L1Xk Ngk1QQJxeKkrEG9a rHLcHNseWa0xmXdjuGxd SP8uQXTnahvpa461RoLg z1qiCSUapAViSHixQNF9 G13jc6D0GMLpUGIq ASS6nZF5tY6xySxjeptr bGVmdDsgdmVydGljYWwt AFegC106ZRVobOawHsVs oUx1D5ToBio0WYWj aTlcUX5fjIWtHCmkPx1f fYccbEtaLA1uRFFantsx b487EaWom7zxFTCyqWIg VZjhPOH2D20lr4A8 HYAfCRWeZQO1wNE7iW2h bGlnbjogbGVmdDsgdmVy uRomZMsgFOkdN612LJLl cDsnPlBhdGllbnQg ZCtqSTy7P3RxLkbjlNA+ PK02GVBoQV14tJXyiVNo d4tzuSx8JdSrMAIcILP9 sSuwRLpqn2JjZHOf K13erPFpy4P1AOYkiNan vEKlBhQriTD1wZ3oZSpr nqlfz0tplmzoDocao1hb fn25zD63P51bMSzw ZHRoPSIzMCUiIHZhbGln vn4ffD9jZl0+PGNvbCB3 hGH6aP9vGLMtRjZ0XCun W623NaDemCKrUhel u8vtw1aoxDi5MmV8XXHv yoVfoBrqAID1w5DsXk83 V39tXDpmVVWzCLXcQIFu VNZhdYvdeq9viL7e Ii8+FLRjoYY0dLD3bT4z VeBfOoC8NAalF588VjYi iUNrMstrK51lV4HimKE+ IKSnXoq2FOVrrBeb SM5kuIGwMCjiXy1cWPS8 XlQsAnAhZXymN6RlBYGr nqtnoskjnSO3UOTdKGLb dX15Zv1joWonBSQw cVZXkR3lzvsbh7rbggaj YjYxSRPrQZx1IFc3HEQn ySiuCtQyTLF2LcH0BRR7 pXKcpE4syKypqqdm mB1oO8CfJJWmmfqgWe64 sA5uTmZvPnH1TRqePmu+ U4STLohgBM6QG1wPTPqe SzwvdGQ+PHRkIHN0 kUaiGJfvGQYwsH4qCUHl P9y6HlMnXbU4GTvaO3Nx JWDszfspPk70sM5xUfSc WrF6MPgyB1OnxsL9 LLSffVQdXXttLIK3Y44w d7S7MKCaBPDkLHG5uUS3 xP8byQciihtctYEvzQdh dmVydGljYWwtYWxp I460ATWpxAbkRcDxNsM5 TaX4MdA0F1WuAnz2DPRg uNnrOE3faKIzYBxyEq9l hJolqLfaPL6sWRFy ettsURBqfR7fCELzjERb cDrwKX0hHCCpssfws998 NpNtDJB9DRDqcQIxT0Vu xP7nDkSlMPJcKGLl F5GafWNfIAbiU207AVwo PnC6RTVdzoWgK2YbGTGj uSrmNtM8s1L2Ef13OWTN ZWFyczwvdGQ+PHRk ZEH2aTdzGDykYVKsiC6m RPMmS0g6PvMgCdR2HPvr V6WbZZQdzoqlVf22nB3n YcXpAkJ5ARddV7Bp uaX9DEKilNOxCBrqZRP9 Q32zd6J9VPRhCVWvPLD1 bPJ0nQ1cyFhcetloqOYf dDsgdmVydGljYWwt JYiqV792UILmtUnnWa1Z FTR2B6IpYvi8GCZbnAht AK6caOSeFAbyZl4deKlh aZvkER1gIHZfofcf HIJczK2zECVztKLdaDwx OL1zYWFkmdsys428YtNn NUX4QZUwzENjM6IqgJ0l JrRbYRFiJGFaS2Uo iFSyOEjgY088BZzcYuZ6 QYBdyeIdB5VpSMTwvSkx PfW3q2S8Hv5NAIwycCR+ BP93pl96T9VqOjjb Dnz1UBAvTYW7dTN7bM3h KSMjLIrqj0I2aMN9W9Np mzXxer0um8yaBQBgWLyh H52llAHar0N1JEFb iIS6YEOefKfxIhSbrC17 Oyc+WGHedKmwj7FcYveu j8ycc9hwmOj6LdVnGSRd dvDcnEhpWOU2i6Ly Yb11I80oASbyMLCjXXHs LDJtAVYcpGgevs7qdP6d Ii8+UWWphOS5iFW1aP7h TtBrUmF4RXocR698 DgHsaHEcKnvql2qws0pf kPr4QoBlCHMkhiMpkMrm LFN3g1TwAv42P5VgqGoh o0EyRcd1nh12wWHl y8J0gFH6S0YiGBPqufel zGRmcYqlEH8lWYUxbegc OPDybC2fFKYfW2d3GeNw MhP8HLxiQ7YjnhY3 PJSonGZsFVCmtORGmU3v yfxis8bxvxfmDxVjRAJx UFv6BQi3KBWurBwpTpIe DAP8OcA3ORC3bDSx rT8waXynuoujhP9wFnu+ OQm7f0loxCHnNT4phKA8 JW52FC05fQXaz2F0qBT5 D1VmMHDqwtdqqetf nVQ6WSCuMHRfzI07Oc4r lTpaQi3iUAMkMAA9TETg fRHhM1BxdH6cBqFrSLLy QELtX8BwuAVjIHzb C596VNkxRnS6SNSqbvNp L1LyOUMqgBvtXfX3m2X2 Qu0GCF66DS11HM43pWJf d6I0dNB6D8CqXZKx qvyvimywgBM0GMRoPJSq wR49Vr5ncToyDs9iREWy LTN9ZAIgcALiL8YroY6x AlMrWVTdYRXwL6Ui aVRsDUodX395CGzyRcB9 UAGannXbF7LfNPUqwUjx UaK4e3V5Wd4USc39OH96 BK25dUEhk6Z1uII4 E8TrJXHhtnwidjoguJQ0 OFTtNYXxeC44Ch1svMeo Cn7hEBInOOM4OJDcdHKo Z8UorH7xLfWvBQCf BQJjI0MnlHUyBLkmK762 ZAicImI1VYBfgtVoH7Kx WKCqmSbdHaY7i7S7Ea0T MTxgeak2G0TmYjth dHI+GJ11AZBuRA31jDDx tUMlj0hytLv6TgCxMLTb KPC9vMtmGEchs0OwXBGm M77swXUxe2D2BIIn bGx (more content not included)... [facility] Coding Summary HTMLBase 64 HbimxrqvMOc7xZk+PGhl YWQ+JX1NIREwD72ggZMv cJ5vJ6QGPHnGTohtPPUN JYoWGjBrfhOnTS5ueCRk ZXJu IC8+XF3hFZToHcdziRXj a8E1uFM9F28ozv2oLMrh pRH2WYTdOqAhqtfty4vz mSs5CLovNmhtZqGg OSYbxY73XIZ9nL39Tq01 gIAcfAQho3pghXi6NoIg HKQqPXZ6cKlyUMuqj0Ib FAYnW32xfABol2N0 IGNvbGxhcHNlOyBlbXB0 qV1pORtwbwexe7fdwuhm Ama8kb08vDDgr5O2vPG2 E1YbxeJ3JPJujMRv RydegWYQzT5sqfaet8qw spusJdJxQDSoCEw5XBk5 EDCrlFefEkOgWD82WUV0 XDLctyMoP8SgRCRj uBohGcL7o5U7Na6BY6YL PrngV7JEPRNWQGzphHP+ UE46od22B3HdIruiXhu5 XCWgBLA2dLV6pM8r DLSrKLjyg7O4jVK4Z4Fc ysCsjp8to3vwSKXiWVgi I93mvDAdj3O7OSBvrRV4 TOKtkLzmAdTqrY40 Oyc+FUQreAyuy8CiSmob i3zni3tqwNk6TtjuPLHm yrXaxNutZCJ3i0RtRs2p RGVhnAP1uLE1gL9t BgSaRmJ8OVivF086WiGl tYPtJnhwU48mL2BrgRZ+ ZVUyKja3CAYwiRoyCW7p U6DwUUVyldrezSLp zLdlVM3bFQBnbalgARXl vK3eKNIqQ5d6WeSwXuW3 KHymB4QtBDBsyaaoQr16 zC1aAnJsZqZ2TIqb K5ZooyO8JEFpiNEyHRod FOK2A14wm4A0ATVnDOVs DOA8xJB9mR7ckRrnhnui bGVmdDsgdmVydGlj CSyqOBcgT724USUuoJam PkNvZGluZyBEYXRlOiAg MDYvMDUvMjAyNDwvdGQ+ MFFeKZC4iXcxISBp hTMgDLzxRq8iaRsxzHis MM2rDOIgyuduLMVduL0x HQWjeVZgoNauWQ7zNSSu gtfzf358AcQwXWX1 KQKdtEAjA9FovE7dVbBu TIEhHMIsN6YbzCFpMIhv X676AHbdZzY1PNPihzNa Z7UrOXHyaLwmMlL7 x8N0Fq9Xa1RgacakZ5Io fQOdDwMoZcqsPLu3I9Am PjwvdHI+CB98ANIqLQ61 GLg3OUR5aHmnGIqy SECbZ2XgsD1cTxMlMEIm ZGRkOyc+PHRhYmxlIHdp ZHRoPScxMDAlJyBzdHls MI8kPv4rZUUcNPDl cAsgmTDhTgJxa8hiXONw DCtfBN4sqJksX0QblEK6 ZPCxc2z8Bl66N38uU8Sg dXA+DQLruSA2vVM8 iM7iFmQsKtU5MIbeZ336 TiUbnBDgJtvcf7qyu8co mIv5YmO6ZIIervHmuPtz PVW3n6ZiPz24F60z IHdpZHRoPSIxNSUiIHZh lHuvir0mfU9nQp5+PGNv eVE6oQB5sO9tYqDaXmH5 RYjeV984HfAcyBVf Fefor8gij1fefCd2QqKu TCRzxlZzsZvsCZK1k6It Ic98H8NxuHkwh2TtSlv1 kj23lKZtp5H6mSV7 F1WrUQDrkqqznUUmdDlq DD0gVBAjgwmtFOZypC0a KCWqO8g9WeJzXtF6XLxl A4ZpfwI6FKKtiJUa DFDwqHFAfD7mucepf6up datnXzQnNKGpVMn9JXi8 ZREqbSmoMxBxENI8BbD6 CZX5nGIhkP3roQro cxolqO4fJfq+GZZ5yELm lSLYBR5qMqewoBD+PHRk YIA9iJebSPngAFCfjP2e NIRnB3y2MeSmIoG0 UPfcP7QdtfS2ILPjjHAx AFLvsDJVwF6znljxm8bs enaySdIgWABlHPi2VDq7 LWFsaWduOiBsZWZ0 BwR6AOA1rUJquH3svYrj qmyaxL8jYye+QmlydGgg HBD7HXa7I1MsCop2QSSq nJvxYO0skWUoYKdw Jf1eqNxztSxfGC5fJODl zsbzj892DcFfu2bwFNNc rNIyJKaaRRQ2A95ze9F6 YEBwMEMpXMY2zVI5 iN2vfCmsepddmVVneLkh okVkbVncDBzfEXmlJ776 SKNunUwoPuPtRTs9P5Yj Jyd4PILltDkhHF3b nJBmBVftDe3iaMwfoNlz VL3tTHDiszpfq548WxCn y6euCVSpvOZdBJgqUQJ9 P47ft0W3LSVuAPMi ZKW0qHF6kY4mgXjzhycp bGVmdDsgdmVydGljYWwt FBoeC300RXBlhVxyHaKd mQa6N7DpTom8KRBj uQulBS7uoFUfSDvpAv5s mAzfjMrmKA4dGKPkzfkn u550PwZox7awKWTqvYVu FOrcPOR5D24zp5C3 WSBqZYQwAXP4dWB2iZ3r bGlnbjogbGVmdDsgdmVy dDyuDAdvTQctU482QEWb cDsnPlBhdGllbnQg CGlrSVq0L1OqSrsacAZ+ EI42ZEQgXJ83hPEmmSPl t7qknYn1WaAvBFDlUFN1 tLfrFCkub7LmYFTe I18nnDOyi0F8SPCziUlr eQJpFlGshCW6hI7mOIfh bcucq8oyolliQrtwl2mn es90bJ55W91zNHzv ZHRoPSIzMCUiIHZhbGln wg0umW1zDm7+PGNvbCB3 zVS7uK9qDTCwOkS8KXbg C255HgMgtIQnHtnk x0jqm4kvhTu8ByS6TFSy wbIboUukTRR9c7AgLl80 L85aBYrqCHAcCVFnASQr VWPjoEfupv0yiA2p Ii8+ZHZqaZI4hQY5qW0e ZfXaNfF8FRtoD763NvPv iFAgOofwO89nQ6AfmWN+ ZPLhBhm6WZSzdIpw LI6ycISpJLdfPr1pDSQ6 OgZqMwKhIDpxO0MsZTUk pierlhossKK5UWNrEWDn bW83Ug9tvUraMCYt kJRRaR8yngflp5xyjvke YvHrWTBtBRz5DSd7KWIo pIcgVvWxCVV9BzZ5ICR2 sUEwbA6mfFqzkuvf kH8mE9HlJLCyxsayPa03 rF6hEgHdVgU5GFpsHeu+ E3JHHnvzDH7AZ4kBWTwx SzwvdGQ+PHRkIHN0 wHspIYciOGZrmG9eCXIk Q0a9AfKqLjG4HLqvY4Qz MTCxcxtlMe76rH5vBmVw GqW0NBsdC4KfdwC9 BBPbyDWxUZvxBGD9A42r l5I0BNXqLFXjWRQ1wVI0 tQ2vrWcbtkvlmAEpgNld dmVydGljYWwtYWxp V716UPWadBvcVcPiGaX8 HuS2WsR0O8DlWey8NECu lHyzYD0deQGlLJdsNe8o nEzbyNwbHK5eNKQt nyvfBVXzdK9jOGJgmLEr iXczRJ3dNJErrvqrz204 DkTkHNN2GRBxjCYxV1Hz fB6zIyMaAXOyZZCq Z7SbpXBvZXjjW961CWra EuB9GMVdflZaC9CvSFXt nOnjAeQ4f9S8Kg63IOBX ZWFyczwvdGQ+PHRk JCU3iNgiQXvxQHTseM2u RMMaA8e9TzBkGbU3ELgp Y6GrHVPjvzwiWs76cR9o WaVyUpD8RLapY8Pa qgJ6LMYozTCdHFgzVOS3 H09qh6U6COFcVGQxCAS4 eZQ6nZ2ggGckfedriZTi dDsgdmVydGljYWwt EAceA165XIYyiFecTj8I NGB3H0GrUja4GJBisWjh FP1onCDlBKsqWq3rwLxn zUejZD1cERFdywqu MMVahO0iHEVmnUTscGrr UC2pQGSiypwrc862QbAs BQZ7ABJrbWEbR2NayV9v VeXnXKNnLYMvX8Ny jSVbTVavQ478FKsmLlK0 NXAocyUkS8HxOTElwEpv SpY0o8A9Xb7GPLylqRP+ JY82px21X6QwPare Dnr6QZLsPRF9wYR0jS0t YHKoGAdvs2Y0eBT5W1Df dtSlgb5sp1cbOKYoDUsm A36eyAZdq5S0YXNu qHC7NYCotEohCoYijG38 Oyc+BLHtpSlpn3VcRjeo e3ukc7zhfZx3JsFrJDAv miIjkYxrCKH3e1Gc Qj85U79nEHvdJKErVADv GVOmTXSddPqgmx0qmC7q Ii8+GLIuvLK1kJW5uV5e UgBzXvA9LLyrM662 WhXnlUOpNhemi2sqx1ke mGb8JsReNBQfljLnfTgt UNZ8r2EmIm04H2EfiNzr i5PaUfz8oq32uLTd c5K9rUM9G6CrGUNczndp qWKcmEomGL6dJXBpxmpy CXBdfV9xGWSlN8e0NmZu UtU5GRtgU5WdztH0 CNLvpLYgRMOmgBWSmF6w zpntd2dvuqhhWmCfVAPn RNx3NSk3ASYrrBpjGoZp EGK2SqE0TLS7lKOu jB5vrGmrqvjxtL6oCjs+ SRv3l5wozBPdHJ7fkFT8 QF41HX37lTVsp0S4zZI4 Y6LvMTEzuvuewnqn uHG1VNQyHPBsrT39Sy7l yArdQg4mDIOgIWF4JURf yHIkG7JffU3oCaJdJCFe LCSuM2RpaKPyWPkb G934MKmcPoK7ZCFqnzRc K8JlDKBxgGueGwK5k3I4 Xa9MNW46JC54JN41rVNr u6E5bAR2T8HrXEVo moqboxsrrCE9WMPzTSWh qA11Bh3awLxnKu3uCFAy LNI2UCUdmPTnN7BvcP1m ZpLhYJQiZAKaS1Gm jJGrIKwzB444IPyyFzI1 BYNwzlCtL8TeHCHmxTdc WbB5i1O9Rh3EGc79UW33 NZ53pABzz0Z7rQO0 D3TjUUWcoydtnxnwaHC7 IGEtAENlhY40Yi1ltFny Ll9vPKOcMLV3CAIbxIKw H9VnvI5fUpQzNZYy JXKrB2YwbQUbQIkcJ283 PYyxZyB2RQZvrlYfN5Ow ZSKmqHgsUpN5i7W5Em4K ANvcnxr2Z0CuBwyi dHI+BM04FOUyTE17yCPj fGLlo6qfkDm1OjLxWODi OAZ7zImwTYhxw6JiLSYn G60alJXvc3M2JFQe bGx (more content not included)... [facility] Wound Care Noteon 10-01-2023 Wound Care Note [id number] [id number] [facility] Ambulatory Patient Summaryon 09-25-2023 Ambulatory Patient Summary [address], [address] - Visit Summary For YRN RICARDO Age: 63 years Sex: MALE : 1960 Address: [address] [place] [address] [address] [facility] [address] [place], [place], [facility] Home: Work: -- Primary Care Provider: LESLY MELCHOR MD Race: White Ethnicity: Not or Language: Banglades[place] Health Plan: 1?[facility], 2?MEDICAID [facility], 3?MEDICAID [facility] Reason for Visit: Three month follow up [...] contact the [facility] 26/11 Crisis Hotline -Text 4HOPE to [phone]. Follow-Up Information With: Address: When: KAREN ZAPATA, LESLY To [facility] [address] [place] [address]/[address] [place] [address] In 3 months With: Address: When: KAREN ZAPATA, LESLY To [facility] [address] [facility]/[address] [place] [address] In 3 months Future Appointments [facility] Appt. Date: 12/24/2023 2:15 PM Scheduled Provider: Lesly Melchor MD [address] [place] [address] [place], [address] Future Orders No future orders Additional Goals [...] 3 m2 Body Mass Index: 47.2 kg/m2 [place] Body Weight Calculated: 84.047 kg BSA Measured: [...] times per day, 0 refills authorized Instructions: RONEL cetirizine 10 mg oral tablet (cetirizine) Take [...] tab(s)(650 Milligram) (more content not included)... [facility] Patient Handouton 09-25-2023 Patient Handout Orthopedics [...] walking or exercising. ? An inability to mingle operator items, twist your hand(s), or control the [...] aerobics, that increase your heart rate. ? Bntcl-uh-puovml activities. These help your joints move more [...] area above the (more content not included)... [facility] Coding Summaryon 09-20-2023 Coding Summary HTMLBase 64 VxfcmpsgVRa7kVv+PGhl YWQ+IZ9LPVXoP75tdLGm zC1dW4XWFBbPTrciQKDV ZUjLEiAwyzCbMC5zhKKh ZXJu IC8+LL5sMBWoAeqetCWc x5L4bPQ8O60mwp1zGRhj dWL8NWHnKlYpyvdvt8tw zNs0CQjqNwnqAgBr XQPfzC41HJW3wD01Bn28 aTCaiFZpi2kmzMt1JyNs IQIuGCW0lNjjOUtcm6Fk BQRsO19bcVXcx7G6 IGNvbGxhcHNlOyBlbXB0 vE3tGIvudnvdt2pqcqvr Mpk7pg14sDPex7B7pCK7 S7XuvgE8GSFnsMBe LibqgPKChP0gfvmgw9ck mhvpGuUlKAAoDLg8JJw4 TARhbFarFnJqNH90TOD6 WDTbfcFeN7CdFQXt uAsgRlB0f8L4Ae8AY8QQ KlibV3PCTMSDSAuouYU+ HH44fx03C1BlXahrEdf5 VGLeCFK0vMM6dT6s SNCiEPrmx0G7rSG5O7Ck vwXpoe7en4pfQIJbJUos N02llMStc2N9EURelGL1 ZQJznYciSvCptT57 Oyc+RRYqtSfxz6SiEfgi f8pmg4jlfIo1QibbXYHv loZqhVuyTBF5q1MsVb3y OBUddDX6vYJ7wP9g DoPlOrL2LKahK670JnFc jNBfYfcdX36bC0AfjCZ+ MHTpSxn1FSTmzDhgWN3k K2AbIOBiwnxnwZEd qDzbHF7uEDCxxnryLQFg pE3tGGPgH4c5KzRnFiM1 WXzrR2NrUOFciofeIs27 iQ1sNxXtFeY5BDgf H7XfscD4VFWsjBClNIsq AMX1P93mv8G4LTJtHJIp NZL8rJM3wX7zgAxfodea bGVmdDsgdmVydGlj BRhfGUtiL802UWOdtIbg PkNvZGluZyBEYXRlOiAg MDUvMTcvMjAyNDwvdGQ+ IVOmHNK3cTlyFNUk nKXyXSecGc5szJeyfRvf OT1oEQDywdbvHWJemF8y XXEsbOFenKqqJN5cXSAc lqzts688OoUvANT7 VHOquOPkM3TizX9sPmYd XFIiHYAhZ7HhwPQeSKiz M429NLolUuA1HBLjtbIj Z6QxSCKjiVcyAuD4 k7F5Sl6Pb3KlvkbwG1Ip eVDmIsUjNcdyIIs1F5Im PjwvdHI+RQ11NKMeAL70 RTj2MIJ0nIlqFDyj SHHsV9PupJ1jViWdTAXo ZGRkOyc+PHRhYmxlIHdp ZHRoPScxMDAlJyBzdHls RL2zGf0pIOEeZMUg pAhqaKRfZbDti9haSBZp GJnwZY6osYnwR7RxiKF0 CRIlm4l8Ux12O69uK8Oa dXA+IISdmXL3gRU4 hJ6mJkSgNuT0DKqjX536 XdJvjBVsQrryk2kms6ja eRm3XgS9FMXaadUaoJsr VTN4d0UvMa09M55i IHdpZHRoPSIxNSUiIHZh zGhsql8puZ7oTi1+PGNv sKO0xOI5kI5sBuGkKkY3 TLpsP931FxQwaLHq Qzenk6ikh4updAv3FwEr ZBHakiVquUnfXSW6i8Mo Ig29F8HkaMdyf9RoOnb8 hs23fXYks4H4vBA1 F9OfRACgyswgiFXfoKry BL8tRDCiemfoHLGjdX4q GOOgP0b9TwAyMbQ0HLxb Q7ZfgeY1ZQNbpEJy TLEviPGObD8yditxc1fs kpxfPtOkXPKnDFj9EWd2 NTGncFcdNyMaTXX3OyX7 NJR1dTSzrA9tjKlu jxnphD6cPaz+ZQJ7xVYt aAMZYD2wIrqztCJ+PHRk VDB3bTirUWekNZLxzV9q IWVdO2a8ZaJmFzC4 ROymG2OcbfR4DNXclUKt MHNqdTJCsO8lcgkcq4og tqmhNpGuRTQgCWo1QSr7 LWFsaWduOiBsZWZ0 ZaR9SGS7iVYxeA7ucYtt thqwrO3kJqm+QmlydGgg RBT1ZUh4S6ZzIna6KAEy qCkuWW2maRAlAXyk Kh8skAeooPhvGO6bZROe xzihg803AsRld8uuNXFe yRYuVTxzAIV1S05cp1K6 MIDzRJVhTCB2mFP6 bC6bvBsofjpevJUzxMqr pyNkxQncTPexUQjbU447 XHPhvOwrLqVoDZb8D4Wg Zlq8SSBwoKwbAN9a zAQzKOyoFk3heExdjGcs TK2xEWVzhavvc922ZiFd g7djLWKqlMLiLJybMAZ2 B49ji2F9TSMjEMDz MBF1yIL3cX9mlZnewfqa bGVmdDsgdmVydGljYWwt MBynF157AFWzvBtsNhPb uBc5Y7RsWfv8TGFs jNxjLQ2ymFZkAOjvPj9z vDjyiNpuXP1tGVRkaxpn l469DdLfp8hlJWAajNZx QQziVKI0U49ai9F9 FQSxLNXcDWT9bDH6vU8c bGlnbjogbGVmdDsgdmVy qOpbKPnlBCcbT571KQGk cDsnPlBhdGllbnQg GVobSEh4D3LoZphaiII+ ZN39BOJlDC32nYJozKUs f5ebtEt3BgUgSTJfBPW9 nWumLDvtj3IuOXQa L06wpQXij0B7BCIubXtr pAMsYxFfxCQ7dN7wGWqi gdqxn7ohihxmIaufu1yk kn22uS71I27cHKxm ZHRoPSIzMCUiIHZhbGln nj9cdX8eNe5+PGNvbCB3 zMR3rT4mFIKyQrN6FWgu Z577HvPapMXxFtnt n2xal1skyBg0EpZ2BWRe lsFiiVolKNA7l6MuIh32 R00cGMouKHMpXXYgOCQj XLZqvMnhvn9dsI9f Ii8+VPHseSS3aIB0tI6i BhXuTeR1TFabY814ZyYz tRTyArmpZ80bS7XavED+ FUMdVjb8YMPqrMwo IT8fbVAyIXckEk3gBCL0 GxVcJiGzRQtpG4ZvMLAe tjknkwqufUW6RSLlRULk zX07Fr7tyRiwHMRs cEAIaH2cdnikm2recboj GmAkRXJgJBa5XTp2XAYe vXljFeDzLYC2MeA4TDN6 tEJpbH2qiUhjyxuj oB6gM7TsZVBpmjooMl88 zO9gCpKkAkP1VGkiElr+ K7XTBdknWC2GD1iTADmo SzwvdGQ+PHRkIHN0 pEaiLVvxVCXuxP9qBWGu M5j6JlMjAgY1OYcxE0Yl ICSasreeBu00nD1gKoPz JrR4LYxeW4PgbqG0 KEEdeTUvRMmrNAC0H71p v2N1UBUfTMHmYFA6jUL4 mS3bdFfpjyihbEZfvXma dmVydGljYWwtYWxp O580HLQyxAalPhFeBuC8 GbF3HgX0X5PrEph5AYEv pZdrDP7wnUNsSJqeXm2k kCmnlEgkJA7kRTKf ofhtMAVkjA7tGFKvoKAe uQzeOI6mEJFanxbrj047 AyOmXRF4ASBdpLHmT4Me qF7yWiNbGHOiMWGg P3RldZLrUGdrL073AVfl FlX8TIImkwQbN6JqGIHa fVzjLiR8b4L5Sc15NEFH ZWFyczwvdGQ+PHRk SBO3dPreDDseGBLtyZ9h SDRmU2l7ZyOcGzJ0DNpm W8LoJANmdyenKp19kE3n CxFkPmB6XUdkG8Jz vnY3WDOkeTLsAObuCXN5 Q83zk5Y7EVXgVVKqXGA7 tXI0kP4llLfczywnpKPl dDsgdmVydGljYWwt IIpjL931BXBrbVgbEv1E RKD3B9NlLwy5MPYxdLdq DU6ryGUfUVchRc6ioDcv nJsfKU1cRXPvsqml UXQgpD2hQJUrzRMxvVqn HM4nWVSrrdzvn772CzCl GIE5FNDdyKBeB5QumU2b IzJzEUViBOXeK4Fd wVHqKOwfF632KHlgKyE7 YVMmsmDnV2IpEOZjdEgs QwX2k1L8Rd9BMAtjyVB+ AR73rz73R5ImWdst Pkp9YOKkLOA6cUW3iH5n PHCmABaek5D7xQA0W3St bwDvud2qv1znVFFkJHyc H69hpYXhy7I4VHTr hWC1IRKwgSmfAmIloB59 Oyc+ZILfaGjqe6AwNjid z7fwh8qtkEe6PqEtDIQy wtMiiLipBDS0m6Nk Wq30S09wJEbmTUGlQNJz BBYrDKShlHsqms6rpJ4o Ii8+NTKpeRP7kDK5iF8i ZzPtSsF8HJplQ548 ZlXrlQTpBbqcv0kwb1xa lRu7AiEvPDVgtmDzvStw RBP3g9LgSb29P1YjgWdu q9WfFxb1ww08hTMb y0Y1vZD6N7NtCDCpumwq pXWqpZvaJF3dNFTrdgbt WNTthX0cGTCyQ8o1LiEs YiD1UYpjF8ThdzW2 CTDztKYbZSDdlVQIbS2h gvghj6ezkdeyJzDiCHMi LNx4MWj3STCtoIpcQiSi SRI4AaM7DAD0zVZt iC8frEpxuuifaP1mXdv+ MQv2i2dgiSXrYQ9flXJ1 IN19YP76mLQzk5Z8aSF1 M7JzRAVmtnuevnil jHY9DRNiNHNdlP12Rc1w pMygXz9mPLBvSKC6BYBl zGIsZ9GxyD9kRyRrUGIb QBPxO3ZtdKSnJNcy I115QPltUbO6LAVcijZe N6JuTFLxdIraUdC4e2L4 Hr4EYV84CU14MN42kGTd r7J1cIP3J6GfPQIt fuzkrxqnmAE7EPRjNMVn wO24Ks0syPmnQw4hKQNs QFL0RYKhzLYjY7XplB6v LiSzHUCcESJkV0To lGIkVWvmP212YByiJdM7 WBQnckTsO0DnXLTaxRjz VuZ8n7V8Jj0JZi03WS87 AI87kSPrn8I3fMV3 M9RjDFLjvuzdxgnhdRW8 THLrVBZuhF02Bf8jmEpk Qm1wJBBsNDZ8YPUspRDa H1JmyC9jFhLoCWOy ARPnS5LilUAfGQfgC996 NMspSbV5ZKZttzWlF8Ih WSUtvIssQwE9h6S1Mc4X ODkucli5E8EwWuhn dHI+RN34ZFOhIC17mIFx tKZms2oujTg4CjSnYYDe JKM4aVefLQoqd6RsWHEo D42spNIqv9H6WVVr bGx (more content not included)... [facility] Coding Summary HTMLBase 64 QqrlbsmvJNx3gPe+PGhl YWQ+CD0DDGYsJ66aeGWq zF8cH0UBJInQWezdTYUS IGzLOdZphzWoUI5unTMq ZXJu IC8+JD9bYEVhWayxnIEw d8K4cOY7G67oqu8kQWlb uBD3QVQtWsZxxtckb0ak dMr8KJkjOncjHbMa FQCxiF45IKG6tU03Bx74 cBSlhTKbk6ftwYh5QlOj QSUiGUZ6bYygAZkdw2Xs UICtE77auRQgo6Q7 IGNvbGxhcHNlOyBlbXB0 xT8xPIamokkoe9mvgoft Tut9zc21jSUii1R0aAF1 I0FzneE3WCOjeOUf MkikkCUHoY1egqzjj8te hubhIxQsFEKeUZr3IWd4 QAGerCtkDxBxLL79PQU5 SWNbtfIvR4LzIVIp fBmmJxD2v0L0Ya3XP6MJ VfcrU9UKVXZVLEojeWO+ HV99jp07E7RwRqegEih9 TUPoZGW9dJQ6wK3h IRFqWTczk2C8kTN7C3Vp udToza9py6kiTHZcXReg A79tpSKlj3U1THAumRK3 MUAcuVhjUnUgbB29 Oyc+PTGliFxmj7ZzIhfe p2lkj6yglIl3BnpcUZUg noTgaJdxEII2l2SoIj1y OGVaaWC3fAE4nH6e WmXnOfI6HIezC611RtQa wDTqUnndM32yH3PcuKO+ WFFsHat0XFQvmGceNQ2x Z4OjZSDdfvatwXTo mYrgHR6oMEYuxibbWJSr iO3kYDBzV3i0DgPaGzP2 SBohD4GuXQMyxdyzDd65 oR9cOfMyAkW8MBca M8DlsdA8LTEevHLoFWpt KBD0A82kg1Z4IIImFUGl EYV8gWC8iT3rtJniklvo bGVmdDsgdmVydGlj ZBohCTjsE727GRWifVge PkNvZGluZyBEYXRlOiAg MDUvMTcvMjAyNDwvdGQ+ FHAzIAN8vNjoMBEy oEGmELzjTl5uxPmgjGby VN1pWZQwihlvAFEeiX1e BTQtpHLdiZkaWD6fQTEv uisuv258CsOzSVV0 XOSasUXtX2AmtW8gVnSh SRUoWMPgD5QisCXvXMeb S632DDwkLtC1VVQgsrTh C8KpINQarPyvLyT0 n2D6Ti8Sa3SibnncZ7Lj bVUeRkKhSwsvUVr4O2Uh PjwvdHI+NG08VHXnRW81 WCw8PHI3xZxhTZqg FDRbW0JmhN7rNdKpZDNe ZGRkOyc+PHRhYmxlIHdp ZHRoPScxMDAlJyBzdHls EM4fYp8oBHShSJTg uRyiuLFcZyKrv9tzTMMk PLbpQP5zaNrkN0FdsPC4 AXOjc5i7Xz44I28uQ7Du dXA+SEPakSV7bZP8 oP6dCnKsTmE5IUczS070 QzQhcTHlKalrf9gml7up yVm7PmV3JNVtakPvrBdb LAH7r0EyIe44X87e IHdpZHRoPSIxNSUiIHZh gBqamv4lcQ5yCj1+PGNv fCA2vHQ4jV6dArCqEjO8 HKhbB406OeNmuQUv Mbczi9wdn6oijWu9JwIt UAQgfsJgzArzWEB8m1Mn Iu76B9VnxGxvp5RiZfe4 kd29vHFez6S5dZN7 H3NpPXCxfzjquUKhbNug LK3eZNFkaoltUDBkpX0q FBNlT7p7RqKrMfH8TGqx E2CixxM9EQYzmHWu GGNxiCQVrY2rkmmot3vo udpaCvOjTHGbOBu7UEc0 MYUpiIksPpNtLDM1TzT0 XDU0lTNoyN1iuHvk dgkhjS2oQto+HTB0jXUt mINCFU0oPqioqWQ+PHRk VAD4hBgsDMcoYFChuK7g NCBqQ4f9QjXiEfP1 QOrdR3KbkcJ1YDUfuSSx GMVszYEWeU1biyokx9nq qlmmUlZqFUSvYCm2GKk9 LWFsaWduOiBsZWZ0 YaK3YFK9cMBkoC4kyTbh lwwpyU9zQkb+QmlydGgg XHE0FFf9X8ViHax4KZDu rEpdGW5nrVXeTBgv Ub9xrWaaqNhwSO9uZTNc mzcwf427RgIxf2mdYQOg uGFxNRsoSZC8M81jp6L1 CXNuNOSuCUL2lRG1 kZ7rrPaanwqusOMtqQnb egUvsKrrRMufMHblK906 SDLeuFjqBqYsCZe4G8Rk Xeq2SSQvzFvbPC7b uPViRBrxSl4lvEyglVpy JF1nNKKaxhtyk732FoMa c3qzTNVlyIIhSQsmPRD0 J76pz8J1MQPiVKNd XFI0jKI1nR1xjMdkothk bGVmdDsgdmVydGljYWwt ACbbV652WQHxbRerOwKg sBd6Q5UlMgd5VUXn hYzzAY3quBJuFPrzPt9m yQxloEveCU8sQZGwhyzs o085EhTxq3ohPNUnjMNf AZxpUER8S56xm2M9 DSRtHXYcEJP6fBQ0mI2z bGlnbjogbGVmdDsgdmVy jNwaIMklFPlaU282OLNj cDsnPlBhdGllbnQg GPvpRQp7R7YtScfkjQF+ YD98ANObBJ05rIYvbQZz p6lhaNc6PyFfCJGlFVT1 zRvsKKrsu3KmGJWk W28fxQVkh2C5GUZzoWbo wJYkDqEcgPU7lR6yNIzm sbbqy6izmmhrHwfeh2cd zl09pD96B78gOVcs ZHRoPSIzMCUiIHZhbGln gh0wvQ0gUl6+PGNvbCB3 jSH2wB6kIVAmAbM5DFum R829FiSsoMEpExvj s7jre3zhjZm5LnJ8AINm beKxnCdpVCN4f9SaGz78 O53rZKaaBHGfOZCyBKHj QPJgtHnsun6iuN6o Ii8+DEInwYD3tFL8pK1r RgVpSoS2WZusF997JfJn dFKkZahzY43zV4HegZK+ MIOuRmm5WBWwnLuo VP0dbYJvEAqaEw7xMMF2 DwZdGgNlRYhlD1MhUPZm tpxpvbqxiYC0YARvYVIc nK72Vl0hjVnvNPLl kJELcY9xsiqap1mnuchu XrXqQNCwROl6NNr4GITw yHhfZqYzLIK3FkC3LBI8 hWQrlH3tnBcclknf fN7sS8HhMPVjwknzAw24 nZ1oCoNrZeS6FGzmIfm+ Z5AUKhauIT5AU9zPMLvv SzwvdGQ+PHRkIHN0 rJnwUQpxRWIqaT8mKXHs U6q2OuNtBzU4QSryQ5Wj ILAjstzpSg43fF8eKrJe BeD5KAifE4IppnQ5 DLVjtVGnIMbuBPV1L47w u6I6EWQuVSWxJKF4fNA0 hM7ssFocsgvhdBNgwCvl dmVydGljYWwtYWxp Y128XHWzqWhkDoVeWtJ6 JeS5WkF5C5IrLva9ADZf uPqtXP0meUPhWVqdCp2l yAosrVgxJU2qLDKp pyxcRMUixQ0mSFNgkWVx iEaaYL5tGCAeaqqpm699 VjBlCME8HPSuvTQnD7Bn gK0dEwPoZVQcTWAy L4NkcNIpALfnZ248BNpt DxR3UAUnxyWuL3MrWHBp sZtdEmY5e3M7Lu55NJFF ZWFyczwvdGQ+PHRk OWD7zXhgPAavUDUihW5q POVxT1q3DcZhBvC1OXjp I1QzDXFauokkSt29yX9z BcPgGdR7AMniY5Hp jfH2WGMraRPhYQzvICW6 O86wy5F2WEQgSDFdDJG0 mDK2eO9lxDmodxkdsCJs dDsgdmVydGljYWwt XNcgG242PLYceQlsJq1N MAT5E7MpWbi6TANdmNyn IC6ugXRbNKyqDj0jvEqb kSrlGY7lGAJbsjsr IKObcA9aQACluKSauMte TZ2xLSTsswgzo309NnCr YZJ4NUKmdEVcG6LliK4y EiDlPICbJWJuT8Sf jODwXUlcI989LXpnDrU8 ICJxcwCxH7GlAKVweBtl AuP5c3P1Up5KAEflrTO+ GN75cu83G3CbYzqs Sgg9CFLaVEE2eEY2xX2j EMLzNHwfm5F8kMG2K1Fn aoGmqb2rh3adRAPmUTum D57afMCpj8E8IIHj kZN8BVGfdWhgXiBdnS69 Oyc+KGDrsUeck5FoBqbq l5qlw2qyuXp3AeMmYNOg buEorBeqDCI7k9Cj Np21E70cGViuCBWiSEUy CIKxSQCnbYjdol7spV0d Ii8+HQStcHK8aJD2eG2z LdDzKnW1DVzyN451 HqGryICiQqwoc6arl1cx sOp7YlCnBOHiepXsrHdl WVO3w4PqWg91I6BygFam a7AmJru1jx23hNCv o8S6wCK3E3XyMQYtqrqu oRHbeQzkPQ8yVIVtznxy NOScjV6rXUGqT1j0WcHz UtO2SVzgW5GiekO9 LQZyrNZhTADvfKFBtT2f arryi3fmmnmjKzScDJAy BTn2GHk1WGZlcPxlCwHt OAD2HkO1EWV0dXYz oI4vaLsebkvlaN3hGpl+ UXv5q5cjwZQlLH6zxGD3 SY12DH93tYUgt1P0oMZ5 X7FfUITskpvddyss tQO1MNSeVOCmdS87Gh7o pSmbPb5pSOSkYSU4PZOt kELvB0LzuZ9pHfGfFZKf XJNlH9AjyLOrQZxq V220EUchIaX1RYHytmDd B1QyMYRplFrqDrQ1n5W6 Ei4SEA91UX84TV80dVQs s7Y1sXU0P8MtDJKe bqdoclvwqDN0ODMxGRYe uL95Bh6qwNrbIg7eZKKu ZMT9ELZllVRgY7UzcM8j XdZaAJGgXDNfJ3Ex qAPiWFvuP717GEwvYiQ4 LTXqhsCyI8DoALVhuHtj PoN1m0L8No6TFw80PK04 HY49zNXkt2Z0kGO5 M6MiCGCyvyrxtduyqHC5 SNGkWYSplD17Fr5skVwo Lx3lFUYqBPJ2VVMusOHm K6UjoS3xBwAxCQXz APKiJ7EkwCIjRAnzR017 BGvqSqU8CFQirsBaE8Bg NCFlrPfzQlN9s5K4Hq6L SWhvhfs4D4MpEoeg dHI+CR71BCBhDH14oUXr uMKjv3qtlPh1PzBhIORq CSC6rWtuHAiwl7QdEUQd T71ojIYqw5H6HICq bGx (more content not included)... [facility] Coding Summary HTMLBase 64 LndcbwsiHUf7kYm+PGhl YWQ+AF5AEJBpF38fwOOl aV2sV9XCWGhORifpPWVI PGvMMbQtfiDvND9wuDNc ZXJu IC8+TW9yCISuTrwhoRTe j0D4fBF6M53iok7zPMzt rWS8TVKxRgWngqlbs1ca zRu7YUdnEdhgMoWc CMVdyA05BHQ4uG79Ew36 aYXkaHDfh3cphNq1DrJx SNAhELH3tReuTDopp6Fm YUYhK11xuKJde1Z4 IGNvbGxhcHNlOyBlbXB0 kF7fKZsjqlput7hxlfqf Vyj9od33bJXrh0M8kOZ1 P9BdygO7LGDvqVLp YiqkrYHNmP0eomduy5lo zguxMsIqSZUwRFt2PCq5 QBKpsTpnQsYlMQ68RMY8 WXOewuClB3MrHKDx rEtrHkM5l8M1Ie2KR2EL HebiM0QCJEFHJHguzUM+ JP17jd78H7YhVsdnHxo3 PUXrAVD1qCE1rP3e XZSoOEhhc3L7nVU5I9Ne tpDtzl7oo1mlFJBgJDfw N06beJIav5C8PJLejZG6 FKAotUfnIlNjyF75 Oyc+LGUifKrie5SrBmea q8igy7lxeTw8TnxcQAJl byFqwPjqEFO2x1LcWx7z TNSslHE5xWE3zQ8z RbMoShS5DIoaS820JqHr rJHhOitnG11qZ8KsrUU+ AVMlCvx1FOZkcKduOB1b O4NmTTDsiwhruGRq tBcqYY1wMZDqvnwqOHXu yD4eLUZoO9i6VtTyYoW0 XAcbL9HbAXTvlzwaHm06 aI1kIuIfDbG0ACob P0IacqV8BTWxvFBiHLhy FZD8Q31qf8D8IKUjYERa CZM5eCM7xN1qvRxlnpwt bGVmdDsgdmVydGlj RUtrKMskN145IJDgcUjh PkNvZGluZyBEYXRlOiAg MDUvMTcvMjAyNDwvdGQ+ AREcGGH2qUbnGSKi uRZyURphBr0jcRxwnCai UH7hGZVlqewnXHHmsU7x XBEiwLXbxNpdCT6wLRZb tsycm752PmXwNHC4 HZNdhIIcI3HzrY1xTqBz LNNxQYGaC4XhaXWyOSlr D577ZHisEwP5LBChntWf K5BkETAnpGdjMyE1 o5E9Jd3Oe7AtjsjpT9Xa nCTlNiGwHevhHBd3H7Pz PjwvdHI+TG83KWTeSC15 VKw0YRO9tIagRRyk RQCjR9QhjT4nNgHxWYEw ZGRkOyc+PHRhYmxlIHdp ZHRoPScxMDAlJyBzdHls PC8zCe9kLZAbIGUk sQryaFQiJvMqa7khYMRa XUmqDU2yoDmgS8BmsIJ4 WDKyc8k4Lr44O00tJ5Eg dXA+GGVozPR3zIG5 xC1pLyBnIwQ0OCpxY509 UoWxaLCqAxhcq6dhp0co bDe2MdW8TDJyeaPuxZyh JGE1a8RyXw40C90m IHdpZHRoPSIxNSUiIHZh zCvgob3ytT7pKm8+PGNv cCP8pBZ8lX7iBqIjNpV9 WQyfE645GrBzcMIl Sjzzp3nhe5gpzHr3SvCp XMQmduXmxWwmTRV3l9Cf Du79J0WgsPaay3OfGxu5 eo71vXDcv1C8pEO1 S0ShFUSsqocwkMBsbCvp MB1kTFRlmbyeRPPszK0i FOVmV1p6XjUyXcK0ZKty W4JckwO3ZKWkpOBj SJBqpJEJuI1ldnncm3si rfvuPkPnRSAkIAh1MDj3 WZFexTihIuNbYEY5AxX6 SGH6jJLsrO7bnIwu afaxlH6cIco+FTM6fGQt jFCUTY4kUsicuSP+PHRk BPJ9nDakHDfcSJAouP9j VOUlH5d1UsArNrS6 ZJwvM4QlpmC7EBUqvRIf QSKauMCBiQ1spsaaf1fs afkrDnFnFCHhWXq2OXi7 LWFsaWduOiBsZWZ0 ClV0OOV3uCUirC6sgBlc wiubnH5bYjv+QmlydGgg MTP2ACs8C5CoSis8XFPk bSzgYK3hzOUvAPcl Ck7rlKwjpFskWC7wTVNx dfwjw397YdDxo6kbZSIi dBCfMQtpNBC7R83zn9B3 DLHfZHMqZSH9aSI0 bT1ojTmdztuuvZXqtJoq wqEwgJkmOQshCTxdY552 IUOhrQfzYrDpZUz2H8Il Ahm4EPTemZsdCQ2p rVPoGKxxQu3nwEawbToc VQ6hHGHuxzihe121IrYn l1byEBEyvNMnULrwBIV0 D18pu3O2NCLnQSKy NOI3kGI9hM0ovZpjsziq bGVmdDsgdmVydGljYWwt ENydI166NKGguNscTlDs bQa9X0YvNli6HHBw aXlrRW1wvAVdOUeoMv5u oHzzjCufJH1fPYOzmdek a000UgPtq2uoFFDklPEo YYbnMRH5Q13fn5J5 QEPuIRDrMKE7dVC7kH3c bGlnbjogbGVmdDsgdmVy hHbzOGwnKOelF326JMDy cDsnPlBhdGllbnQg WQouFAw8A5SfZzrmhTT+ HN01UREnYS74yGQikRSc p4nglIy4LiVuZWKuIFK8 wGodQEiwq5YoGVXd B45syJSen4E1GCMrrGjp uTCuIfEslFW0sY2kTIey eakfi6tteqbrHrvab1za wd08kI54R14bXCff ZHRoPSIzMCUiIHZhbGln qm2sjM4iFg7+PGNvbCB3 xPS5fN3aDNClSqB3QJxd A106WtRfgCCxJmqs d1fwy3aqjIf6IfN9TTGr knWwjApsFUH7t9SyQl50 E62lCXdtFPZyGLUmVUDg VCInkEvsno2fiS8m Ii8+ZWTetPJ8oWP3zE5h QkXkNjI8NOvyD962YsKq aFMfDcjaW94pI1UsnYM+ ALFxQni3YZOunBcs IQ4lcCJnLOdbEk7rMMF8 XqAhTcLgUXupZ0NlUSLa nnfajkqitNE1FYIfRJGv nO56Vc3ozLezQKFl qWSTdA6bkiapm0qdjqrt ZmEiRNSaRGb7AYi7PWMi rLmdIgZbVQI5WpX8JEF9 qLKasV9ehTwboghr yW5dX1FyQDFfuclcPy23 wX3jCdLrRoC2MNdyLml+ S6HFCrvcAD9AO5dVQGxb SzwvdGQ+PHRkIHN0 mVogDAcmRXCefT9bMKEb I7u0WyKaFoB1FMqlR8Hh UDUukkezEp65uY9oRkZf WmS3TYvaB0VrcmW2 SMDbjKZjSBqcCYD3N32m s1E8EDThFOCjKNU3xPD3 tI9cdBdxqzflpPPutUrz dmVydGljYWwtYWxp O554CGShaCrbDsGbLjN0 CsB7HxU8F6LjZjg7BBSz xDedIE2ypCVtRRmuEt4n aQgwtYoxXY6nNIHc dvemFRUauF8aEELcqBTq pItaJC0cBTNgfuvtq938 NyMwFAG2WYQgpRYvQ9Oi kQ7eQwOgOCQsNSZl F5EnhRJvPMrpP398GDsb OeH0UWPtldVtU3PoIVBq aGpkAcT2m9Z3Bk93NRIN ZWFyczwvdGQ+PHRk WSP4oJelIOyqRXIpxG8x PJApD8m8MjJxDgR7DLpf P8QjQSWlotiwZp69bH8k DpYbMyP6FCgvF5Fc qwI5PNNqqGBpRTwlZHV7 U71za8X7NKKrOTHkTWU2 jXK1uO8rqIokknwztMCz dDsgdmVydGljYWwt HJueP681BBYqkIblBn4Z HKE9O1TzLvx2DHXdtTnr ZZ0jzBTqDWuuBl6opNih cQzfSF8wBLZwgnzx KTVhkR2hUCSupSBfgJux OT2mWGSmwceou781LaPy UWQ9AQIfgCBjE0KmuE6z TxWwSHFaHBPsW2Ca fVZeXVozA562AQarEiC4 UZJliqBoI5QdYSQogDvl SlX4x6Q1Ac6KYPkciEC+ WY17vx54P1PmIcaf Bhb7DIHsXOJ3xMN4uP1s MDLaGMmdm8M1zJO9R8Dd tjUuth4go6jmZBXdHQdl X23fxCYlf5N7VAMw pMD8SNOwxUajQuLahN84 Oyc+CDVjeGjxa7RpJuqr a6hcg7qncBd4CqGcRFHv cySmmInaURB2i9Bj Ri14Y43zCKlrSHTmJBSd NKSoIRBuaPibwx5ltU2z Ii8+FBFqrKL0pPM3qY1q WmMkUuQ0BWinB051 OuBlnUNgKveje2djp4zj kPi2WvHlSPMzesMkgGpb ADX6v1NxOj25C6JtjTna e0JjQlg9tc67kBHr t4D7aER1N4EsROKbzqae jPMnzHtyLN4tYLQtlgpu RDZctA2oBZUiA6t4DoTn EsF0NGhpJ8BogbQ7 YSTtqVFjSFFjdAZMnI2r uwbho2yfteoiJjAwSWNf TGp2DLd0WAPzaDucNrXi MLP3AnR4BTB4vBYj oX0siXqcburghI9mUax+ SGw3e9fopUYsGA1qaKE6 BO97PE95kTYvl1A7iFL5 M6YjPFNewmnyumti lBY8QRYjYMPxeQ72Nz7m rMhmNe5yJZXwLJV6IYHq mGYoF1IksI6wHnXtUUMd OXJaI8WziSAjICzr U945RPlhBlB1OOOczsJy Q7AzWLNofTdbOjK8d9D8 Si9AHX28HU00XL53sHAn e1B4tWI5F5QiAMBg grdghzoksDR4INGuZFTs gE43Op5maWpfDv9rLOEd XUK4WDSfbWHhV3QxfV0g QtMtKPKcMAVxY1Uf jAUySBcvT965FKesAlM3 OWWswtBhI8YwZMLhlOyg OdF3h5B0Xy3MLs13XS95 OZ82sEIsq1E7gLY7 G2TiOJYxakdrwiyihFV3 QWYsJKLtyU91Lx9eaWnm Zl7nYQNhLKS8TZXqwALp R9DzeS3lTaQxPNBd VQOmZ7OwdFHjYQxbL084 UPgvOjD9HPOipuPuL5Ss DNGjhFqtUwK5e2N3Xv4J QYaqoan6L3FsEtzp dHI+YN15YDRySP89vAAf sFViq5tvdMs3IqUuRZQo ITS9sPldCBmyb1ViXELw A42xcKNci3M9SGDt bGx (more content not included)... [facility] Wound Care Noteon 09-16-2023 Wound Care Note [id number]# 1.00[facility]GTIFF [facility] Outside Recordson 09-09-2023 Outside Records [id number] #1.00[facility]GT[facility] Outside Records [id number] #1.00[facility] Outside Records [id number] #1.00[facility] Wound Care Noteon 09-09-2023 Wound Care Note [id number]#1 .00[facility] Coding Summaryon 09-07-2023 Coding Summary HTMLBase 64 MalvscgwIHz3oQv+PGhl YWQ+YK2KEBXpB59ipVYl hY2xM2LVRUyMHyzvAQFY XLrAUaFygaGeVP9spESg ZXJu IC8+HL0uMGEaRuxiwRBr a2D4gVM1M36rjd7cEMbb mDZ7RIJuZbSkqkcsy4va aHw2XLomVogpRaTj FPQduC74DIH5uL13Do37 aVHlbKRwr0qquOh6JdHq CQPnCYZ2fKibAFsht3Cy JLUcT28mnEPtt3R0 IGNvbGxhcHNlOyBlbXB0 jD0xVDixekdev5uvenbp Xls0sw27oIFox8I7rQW9 O7KcuyI5GXSuwXGj HtueqHJOmX7earohf6aq mbunAyHzEODfRTa5MBs2 PDDyoUpzZjDjQJ17SGY6 MXJxibTkI1NfBPRp kYmoTxI3f6M6Vk3LW5QX LkmaA4EOHMOUIRajmUF+ DB59ir22T4LwQaukIwe2 CFWaWKX6aPO6oC2r AGOhNTdzw2T4yEC4B1Dl uxZkyn6qj9mfUKXbZDjh L87pgWMel1G4GBMkuNW5 XUSypRhpCrQtgY40 Oyc+JJMisQhxx9BfCyjn z1ddb6fylDz1JzwcSDHa rmJbhOzwHCL5t0NaWv0p PMWimJO9uLF4rY5r MvBrChI1QPkaJ309BiPi sRMiIadsD27lW6UlbKC+ WCZkZfj1BYDokIcuCJ4u Q7ZpBPGevxvapNOq vRbqSC7kHLGtawxjLUVq bI1dCEMnR2c4JcCbEbC4 PAdbR8IeWTAyustjGu19 uK9tBgGlTtF6DOmp B4FiljN6CVBptOHmGOhr ZCX4S69wx1X8MYRlBOAr OKF0gPE0fR0mbFguglpo bGVmdDsgdmVydGlj TUwiUDlaJ770COShaYch PkNvZGluZyBEYXRlOiAg MDUvMDQvMjAyNDwvdGQ+ UOBySNV0vSoyFURa hNFwDHdpOk8plWcruCqr YF3yKTGtqdvvLMTxwN6m XNRvaRBwzOvpTY8bKHOe qabyu370BxTbYQF0 QZYtcIImQ0JngO1rJcEd MRGwQJFyK1OetAScNFfo N730CIwyIiB4YWNrhfDl Y1McBFMksSexJnR3 l1P2Un3Xt8FdqsgzO4Qk rFYxUdEwNqlkWWp0O1Ed PjwvdHI+YT93HYJqUV79 GTa0EEW6zGrsJHys DWXwC8WmuR4dPbDnRFTo ZGRkOyc+PHRhYmxlIHdp ZHRoPScxMDAlJyBzdHls EJ5xLg6pGHWjXAAa dAweuFHkFgWft6aaOEZn RVbsPR9egEbiO7FaqJG8 XUTbr4j8Id12Q51wR7Ft dXA+OPJsaLL8dNY3 bS0bVjRhNzQ1GAweG088 WkVcfEJzNdeqs5loy9ge hQe5SwG7YETechSviNtp SLQ8q8WvPx46D91r IHdpZHRoPSIxNSUiIHZh vZhwab6eaJ6fJx9+PGNv xQX7wBR2uC3mCzQvErC7 FNbcQ696JbPhdLSh Vskeu8lny7crlKt1FyHm WFGaqpZhrJffVAX3l7Kx Dy23O5UxrNdfp0EcSoc6 xi06mWBig2S1fXI5 N7ZtEJWnjuvmuOCndVfw IG2tYZRydafoJERzuZ3o UOWvT0m4UqCiXwZ1PVwu D2ZeaiO5MBBckPTn POLyzAKDpN0jykght6ez koxqMuGcGLHjKEl1TCw4 UDZnhPjwIeRrXBS6HoA7 ZAI5uHBlsW6fwPxm mxsssK7cAob+EQC6nGIa wDCCBH8sGhahoIF+PHRk NSV4uXbwQMxgDZKmdR2t BUYkQ6x8UhGyZaX3 YIqdE6JncsT2PPAnlDBm KOUbcBJRoI9ydzhlo5ej kdixJmPzKHUlYWs5GDq7 LWFsaWduOiBsZWZ0 UvR1AOW5cCTxaF8kgVhb zcmyeJ1rVvt+QmlydGgg VTH7ZOz0K9HwPwu6LXUb cBacGI6gnYEcDEur Yu3ysDfjyEleAU7oGLAm nvovm899MsQku0mtZZHd bUYnVQyxRWK1R92vx7J2 SJSmDVRqJRO1kRH3 iA9saFuglsdqlDQjuDbz zcNoaGmhGAwwSFsnL942 CBLycEkeMmXcHYm4Z8Kn Twr9BQCykZwaJX3k wINhQMgoEg0onKngpKbv RY9zKBDmfoezn152HgBr s9xrTLVbzUNgRWsjJHK0 X38lf0Z6FWDgXKCy NTH0fYU9yJ4yoRlizeoh bGVmdDsgdmVydGljYWwt RGvkW073VTVyaWpuAmAa aLz0V8RvRyk8DWHf rGstTE1luDQlOFjnVc8w tEoesDanZN4rWWLbnptd x547NuDsn4mbNEEtcSWc DWciOSM8K78if2N7 EMQgEYLdZGI7gLF5cY3k bGlnbjogbGVmdDsgdmVy gTgtVBxxIEtcR531JGTs cDsnPlBhdGllbnQg XZddGAk1X1UtSunwyYW+ FY74IPUkDI15eAWmqJUs j0lycTf0ByNhXKBiOMB4 jFcsAFsct1OoBYIz S69emFYth1N3DTYjmGta oRXvKjFcbNB9oB6mUHiq xafyp4jwkimcSaews6oy hh74rB00D85aDMvl ZHRoPSIzMCUiIHZhbGln if9ftA9dBx3+PGNvbCB3 zSN7sE8eZCVeReO6JPgc K442IkGnzNZoUrcv g0msg1smiFa7SfK1FZDg uoJqwLadKDZ5n4VgYi24 K71fTFxzHMAvYTYyEZPm CYQliGtmxw6nzU4h Ii8+VJFirHM1kAV8uW9g QuHoWhN5VQzxS389YoHc kVYaPqvsA92aB9VcjYW+ IWIxYeq4WDMqxUir QI8erKWhRZxdLh8dKRH9 WpGbVrEuORazU9CoXBTp qwpgdmrkzLO8LPPnOVEo mV70Tb5dyDknXZYp jWSVbK7dyrbvx5gxoxds IkDdKJViMEd7EQy5IZRv kDccLuRcXCI8PrE9MIV4 gETquO7fiNacvoxi hT1fI7BqTDRymvssEr44 uQ5nRzGqQxJ9VFgtVgv+ C1FROnphSM7GD5yDYToj SzwvdGQ+PHRkIHN0 qQadLZyzTONofH1fYSBz Q6n8MeHrPbA3UUphP4Jx GTKkgyxwSi30aA1cYhRg EqZ6ZRwyZ0CgqkW4 OUVtgHBrMHbkHSI1H97x h5A7FYSyQZRrOFT8uCM9 xL5jfTezvbuafPZijQyw dmVydGljYWwtYWxp S695ZOPowSayEqUhAtW2 JjR2ZgO2F1EqFqh4EMJn jUhqUY7bdXQeGCuwHs0j zUwagOtmTX0nXKEu mfzhCJEepX5eXQGquUQs zCqvHS2bWTIbhzkeb214 PsOrAJA8TOEbiZNhC1Ik vI5uGmGgKDHgZNVq O9EqxJEhDKbqN849XEde LaC3UBWmduVhD2MjBWIb hQnsIiW9s8L4Cj13AZUU ZWFyczwvdGQ+PHRk FDY9cIiaXBrdHZUhpW0s DLYlW2e0DxYjWfX2QEdr M2AgBNRlcfswLo24aZ2t ZjVzKtZ3SCslM1Br nzQ9CAHodIPwEOkfYPF1 O61zy0I5FUHbRBXjAPJ0 uVU7eU3nmPejjsolfHSb dDsgdmVydGljYWwt MTwkJ072TLLihVogYd3C OSV2G2WyXfi3JQKgwSqn WL2ewJPwANdsEd8vlFkr yUyjHV7hYZBibjvl LSEvmV3lXMAczGLfhBiy NC0sMRLjpnpcu535XjUy KRS9PJRuxZGfB3QnbE0q YzDtYSLwKTDgI2Yd xREjRWchY326CAauQqT7 OQGbrjOtF3McZLIyhJey RqQ2b9M1Yl1FMZgahVU+ JR35el61W1FtZzqz Sza2ESBlNDQ9pNX4jS2u QZMvJQbaf6X6zEK8F9Lw gcZkjg4wt4diOPBsXKkm W97xsNJlg8U5ANBz nQH7NVBtdThbKqIhwG80 Oyc+MSCowJuay3OnLmrh m6edc6ecwCi3YjZsFGFp paIgpJtsNWI6g9Pe Xf07Y53nBBrxBEOoRZXc LMAyXRAtqLfuzd6fkG8b Ii8+HJTosFW6xAE1uR0q DnYfZsO9DUvoY414 LpEfxWYrSnkuf3rbd4cv qNp8WpVlXQWzoqLkvBai GTY7d1CzXt31T7HfhPri t8OnEkq1fm49bCOg q6Y8sWI7K0IgFGWebcud oGDqvIkgEH9sMSXukvwu JHFcyW6sAAPmN1i7VvHw NdZ9SOddP5AmptP9 AJQmcYGcVJHimXUPpK2p hpcgb9ptupxkCzRxAYUq KIf7ACz2VFTzmJgwZcXv DFA5NmI2LVB0kAEe cZ1ixEhqgylxgW9eMxw+ SEd1d4fqjUSsUJ4fyFC4 QL44DB73pSEam0E0hCH5 K1OkDIIravldlloh aVI6AKQcKUVsxJ88Tb3w kQhvRf1nSYAtCOS8KYOh dHNcD2GaxT6oGaZtZAJa KZXmA8WzkMOdNXxw L312LWphUoZ0FXYxoaFi I5JoBSVhfUsqXqQ7x3A1 Sa3FEW44YX28AH28bBXo j6X5xRL4M4RoVWYw ubwgxpdwjQH3CGQgFYZi lI46Kn8ieSqyKu1yVWAl ANF4JLVodELnJ7VnpV1l ZzRpNQStXKNaQ0Sb zZVzUMknH897LOguPjD2 CXDlqoUoH3AnSHJtcQuv JvY1p7E7Gw7KOl73AJ64 KR49mFDvq0Y2hTY6 B4BaGQCtsflabaxphOS9 NAXmLKPplT90Du4yiJlt Yn1nGJYwSQL2LXPznZTi X0VmvU6sYlLiOLOi ASTiE2VdaBJuAYawC411 HVwdBoT0OGDrkdToG5Qf KEOrlFrsIrF7n3R8Ai2Y PTksqql6V1WtHlok dHI+KV13EWZeXU36jHSp yCGhz5dzrBs9DjHcLVFb GZJ8gGosBRdkh3BwUJNa D04klJTnb7T8XRIq bGx (more content not included)... [facility] Coding Summaryon 09-03-2023 Coding Summary HTMLBase 64 XwytdsgcCQx9vRb+PGhl YWQ+SY3HZMFbG00rxYUt cE0kH3EKGWqRMtlxOJAC GYjHWuDwhnZuRY3ohVTc ZXJu IC8+TC5aCTKbGkvjkRHz l3P7tWE6S80ysd8nIJgs cZU7FBHnWqXmgkvwj0cu aQm8LFqqMzpuIwHe KFNhgD87WGQ1zI03Wo42 aXOikDAzu5toiSb7TcPw CJGjJVL6cVzqMDcex4Fs MDBgB53gdABiu0Z4 IGNvbGxhcHNlOyBlbXB0 wW4pAQtipvhzp0gcwufm Aaj3ww61rXIla8B8vHV2 K1AknxT9ODRipTQz NyfnlETYsR2qqdoac1xb ybylLgGgZTCdDSl7JQm5 YYEzrGbhVsJbCB92WFW2 HOSwmlFeM8GhXHMk uNvnAzD5z4Z8Pn4RV4UG WwgeD3JXSCOOMEnuwYH+ SK35ku45Z8KlMdgbHem2 QIQaASQ8fVY7jD9k FCBfFNyds2S3aXY2D2Oy ntIcbz0td4cmZTOvIWpk G25xbLFou3H9JHOvfJQ7 IVUhtIvgQwPbnV31 Oyc+QYOfxEptt7YnKizd m7oxq3nfpCf5IkjbQSGx oqUqnSscMJU7b8WgRa7c XIJqqJQ4iJD5pW4d LxCvLcU8CQhdO435MxKy vXScCkuhO61cR5BtpAT+ MKSgUec4EWAfhNpjFA2c C2JjFVAvdoxdiWDr qMnnGE2wMNGrvuopMUTo uF3zXZAzU7z5PqPdJlJ5 SQgcC4NdNWGycbvxLj73 dM7wQyNnIgT4MAjc I8QynyQ1HKTmiYCsTIlr VTI0Z87jk3Z9ZYLlKNTs XML2wVY4vT5lzEjssqfs bGVmdDsgdmVydGlj JGzrCRkuP192JCIfxDzy PkNvZGluZyBEYXRlOiAg MDQvMzAvMjAyNDwvdGQ+ HPYbCIA0wAtbDLMz oRTgMCdeGv1hvOdauQet AS7gRPPwwmaxUBNxcN9y QMFhnSKmgGbuMT7uIQNb yasyl206GyTeOXH3 YRGpvOPvS6CbjN4tHpNj EBTmEWVbO9JmtKOuROci W314BPuzSmC4TKVbvtBg C5NdHYZidWohFeG5 o3R3Uw7Xk3WfaoniG0Eo tGAuLeVhBvueBKg9G8Ta PjwvdHI+BB60GWAhLG19 OLw0MBV5gKciUYkb CMEyG1GacY4lJfQyOCNm ZGRkOyc+PHRhYmxlIHdp ZHRoPScxMDAlJyBzdHls YF2yEw3aGOVcNLGp hJpzuANcYkQuk4htSHGi IQwrPU6ebJjqU7VduFG2 TVSxr2d2Ag26Y55kF1Xd dXA+ATTakBP1lYL7 zG6iEpWjOmG4BGzwE555 NoRskWEwTkkrd4kdc7ev oOz1XcW4TTOxbeApdIvh UCE1t2AnGa70C97i IHdpZHRoPSIxNSUiIHZh fIzrgn2gvM4lWh0+PGNv zSM1xRD2jW5pFbAiNwE2 MNxdN769ZuMjzXHi Wjcsr2vfm0nqwKf7XkOf RBGjbwPbeHcmNBF4e2Tn Uk42N7NypYbkp1AzEdk1 kv84tJYaq9B4tNV6 Z4RoIJIjsunpcKWqrZoc YG4yJMTladfzPPZenI8l SMVmM5z0PtOrUtC1ITwh S3YjvnY1CMHedMIm KQSvaVJEvF3uxxppa7bq ywyyGsDfWKSkKEi8GLr2 QLMnwWdlZiWrYJG3SwK0 HNB4jRDitO4dgNrc cpkwvR1vFay+TNQ0lUZs gUIXIQ7iPyrjsFF+PHRk WHJ5wJuaPNrcHBYwpP0m XNBrT0q7MrVpWdA7 EBfnY0TeuhF0FMLmjRJi COVawHJHcN1pdabhx0ch ivliVzKjCBEwCGg6TNy3 LWFsaWduOiBsZWZ0 GbX6NCJ1kEOmbF3kmVaq wpfnqI2eKyv+QmlydGgg OQH5MPe5Z5AxVeo9YTIt nTyeKU6raHRyCNsj Oh5whLsjvPimTD5gOXDq yeufw495SoQdo2cmDJMk qBSxDPicWER0F09bl2Z7 TSLlVSUkDST3qOY8 wG9rxUxjkndzaVBeoTqu xnCovDrhEOelHAsjR333 DYPteSahAzUsPQe1O7Rr Jru6DOAkdXhqRF7u eAOyNIosFl7peGyroHgb TK8rRSUwfnguj031YqYu b0dxJWIxaNKzUUgkQDO9 S61ic0X2LFEiDSNu ELW5mYR1mT7peNyascir bGVmdDsgdmVydGljYWwt NNqeU155NMAciZttBkJc fEr1R0JaRhi4QOOt yDwuFC1mvCIqVJrbFm8g bSvflTldOF6aVFWllwzh m419DuIuj7loZJGgcUUq ALqkPUW0H06ni3C9 ZUQeIHSjODE0lCY8pO9i bGlnbjogbGVmdDsgdmVy kGkyCOpqNOhqE087HDEv cDsnPlBhdGllbnQg GFsdJQz0G0QoLqxzqTG+ UY14RCRaSJ46yTLxjKHw w5ufmNy0TuBzHHVaGTV6 aCmqVAnsg8DwMVMm C45icZLms3P0JPNkrAjv dRUaSeHgqTV6eL5qDGdq sitbq1ogtaasKytjj5ka ik80lQ00X53lRAjw ZHRoPSIzMCUiIHZhbGln pe1ktT0mJk0+PGNvbCB3 xWL0fF1vLRQlGtB6PAtl T198UzYhuDYlGmvy q2jxt8inzZi2RjJ8YEHx cdGdoZcjQIS4i1JaMy64 Q63nXCzuOPMuBSCjMKBm QVUxxLmloe3rxD4t Ii8+NIZkrIG8lAP3xM7w PiXwOjZ2BJriQ099OtYe zKFvCutbB91nU4SmkMX+ WRMiOqt2IOFnlXcl IA1slUIgQLqfRg6nYIR2 UsEwFaPpMViyQ1SbUAYv bfdafdwtuVT0GUGyYZIb qK28Qf9kmTveWOLu kTIRfQ6dwhshp4ffvhqx MdSxMYNlGAq6LHz1FOAc zVmzDjQqGZU5WoT2AGG3 vRRgdQ6hbJewepiu mZ3bH0LvFEYjprpiOt62 zJ0hEdRaPoQ2WXdmJsm+ Q8RSJbwuHX4VC4oLQKwd SzwvdGQ+PHRkIHN0 yZmpOBwhMLOvgQ2pEZWo Y4w7MiAxDdB6WLkdZ3Qz ZCZfrcwhPh41fG0qJmKo OrH0FDmkH1SvmeJ8 ODHclPEsNVmrXOG1M72i c3Z2TMDiWEVsSRL8xRQ3 yS6haLtqqkfueYSoaCol dmVydGljYWwtYWxp E820ZXBkdDqpLrQwHbT5 EjD5RnB6X4XjRig9MLPl mObxGO0neIUhPPhyIx3w hYhxrEyjPU9eWMXj iadeJPQryY4eSQPzjSOx fNssVB3qYBIoqsynl836 VaWwPAX4RMDssOMzV2Sh rJ7vNyNoMFRnZJGy G6QswLAcURjwD113RGyn MzL3HJWhziSgZ1ZdVZEb iPgrHnO8o4M1Xt04JSEF ZWFyczwvdGQ+PHRk AKF6aOlzXUbcLKXobV6u IOZgC3i3MgYqNxL3JOqw B7NxUVGzbpnkGu25gO2w CrHtTpX5XKazW8Gw kiL6GZJsgRZaLCofVNO5 O64dx6T7GVVtRHBqBET8 cZX0jY7prTlmiwrcxSVt dDsgdmVydGljYWwt PEemJ691SUJcvUfhEn6V FDL3N2StHuu2ZHKxtHlx YO9qqXOqZVznLf3ukFrz mOgmGW4fOROiyfkq ADDlkO4sGSObgWPxkZzz TV8wQPPzcbaec319QpKe YQR1WKGbvOEjH8ZudS3g TmZgFOBoPXInO3Ng fKZgEAabU464ZSjsEvP3 FNTxexIbH5QsIGBkkQva ToQ8z6R3Lm7TIMbzwYV+ FN94lo02F6ZeLfma Aee8DJGbTRE1yBV1aU7s UZGdNGyky3C0zAG4Z9Cd ihTzvg4kk9fvAXRoAVqq Z22doAIpv5G0MEId fQV0PAWkkBhxCpAfhG48 Oyc+MFOmlKjqi8VsXtcm b0cot2wnkUu7FhDsHCIs wiVltPzlPCV7w1Uz Ih40Q13hBNnrYHScKFIy XZEiGYZcgQugdz1lsG7e Ii8+OUHhcUC3iLX5yI1q BhTdBsT5RPbqX447 VmLceSSxJgsic7ksq0oy uVm7LaRlGFUvztWiwXzg EED2a6XjWd62C3PruSwe i2ZyYoy1xu95sPIw s6T9iPN5O7WaFPLbmhrh eDLbpEtrWT2vCSKmxwyl PQRcwJ8pCHIzO4l1ByQg LpY8ZXzqQ5SxgdT5 WRZurIBgIVFncALTbF6o itklu1hmguutVeOyQQUc UNd1ZVd9OJMkrKhwIsOo TCL2SeL8CKW3iOIy hJ1mtQgexnlurM3bZny+ OPx1f0cvzCBlRM0ezNA2 BK53VH37qFRxl5P4mDK8 B9XeGSQjgfvvekej aZK3LIJoETBcoN81Qk7e sKpjOa2lHVPjXTE3ELNi kNLcQ4KzhH6zGeToRINo JTKlL9ZhtWAxTAff Y017HSnlNgP7KLFnlvXv H4QfFIUhjAekCdU3d8S4 Nu7WFJ06BT61BU99iTXy i0L9dPH2G9HgIAWj vuqjbnypyZO2ONOaNQLe rC68Km2dzPezWl4mTSMg PEM9LCBdnRRhO8GnqX3t SfJdTWAvPWHdH3Xq xXDzUYoxX385NKrsEaK2 HXUntpVuW8UvZVCfbTyx MaV6i7U9On1GOy90ME48 JU57oRAsw0Y7cKN5 E6GdZTTkfpdnzlvqjFA9 OKItYPFdzG46Ty5xlDgx Hx1pKTCtCRG7NLIqyAXy D3VnoF1gToKgCYHb LGMnJ2ObcEMnPUqfE039 YLrdVtK5TQRqreAiY7Zt CADflFraGlL8m3P1Ml7S KRhxvgj7Z6YtUdqa dHI+PW04HIKiUR05fTPk hMGyv6lqpTl3DnMfMNHz LCQ3hGusAGvhv6EbSTIi H92gtTEhv0E7ITMu bGx (more content not included)... [facility] Wound Care Noteon 09-02-2023 Wound Care Note [id number]#1. 00OTGTIFF [facility] Coding Summaryon 08-30-2023 Coding Summary HTMLBase 64 DqplwulaEUx5yJc+PGhl YWQ+VE0RGUXuT73ohHIp hM3uM0KXWVfJYtsoZCCG MGiHSuYpglLzUV3hwNYw ZXJu IC8+ON7fBTXyIroenXGm w7J6dPY1U41riz0gJNoa gOX9VMUtEcTriseoo4nj mEs3SBufIqkkJiVb XNXpeH87GTP9rX25Lv01 sWMjkUDds9sseMj3SbCs RXHsHTH6nNivCNhro2Ws FATgO62xtLRwm2R2 IGNvbGxhcHNlOyBlbXB0 hD9aAKzrexubz1usuuco Bjy7wv43sVYwp0P4qQI2 Z8BlibF8LQQfyIYf JrntxGGWgS1ydornl9nx qnzfPeXgAENdDWn7OUe4 JJMjtJwwOyBeOF21NWE3 OCIqblUlW7BrAWGi zUbxHpY0n4Y4Lj7OS9IC FwjdE7JFLSGNNHljlJM+ AL49vg61Y2XyYqbsNxt0 KYPmQFW3fTJ7yZ5p FSGzFCdzy3W8dLB5Y7Aq osDhfp3ze6oqSKBgCPet H19scDXye6B5EKSdqBQ5 EEJyzWnxRqBrqF27 Oyc+SXBicSukl0HdEjiz c3bbp9vjbQe3QydgTYQg bjWorMiaJSB0v9SzCd7v NUXfiOT5eSL1zJ5x UrJeHqL6PHkvV730OpDn oPOfYanoA47aE0UjmGH+ FWTmPru2KTZtnOrmMN9f Z5YeVVExoacjgNAu gPqxLJ3wMNFuibuyEWGd wD2cZLZoQ5x7PyEvTdX9 HEzxE1TgFGChteupTp10 vO1fApZyHoM3CWsm A2BntwN5KJHncUTaTOfp GEI0G29xo0Z8OTVbAPIj ERP3dWX3uO8ftEngrbcn bGVmdDsgdmVydGlj DMmkXHcnA833OWOmrPqj PkNvZGluZyBEYXRlOiAg MDQvMjYvMjAyNDwvdGQ+ TDByVZZ8jHvcLTBf cRFqXKexGe5hiQpgwBgm ER0rYLNgxvcjAAKtmY3r JDCoqBXwjZrbPG8kCPUg ipvyg946MdOiPTL8 ZKBzgYOxL9AwrC6mQuRj JYXkNVCbG6MddFOiCScv G040HTzvOtN4GHKnigKb Y1YmDCJmbYdyBaQ2 j5W8Po4Go1ScfuuxN2Et pMHmJbGaVwozOYl3Z2Qa PjwvdHI+JS51PKNzAF97 IKh6HGJ4yYilOZmw JHOeT6PmpQ3uVoXuELRd ZGRkOyc+PHRhYmxlIHdp ZHRoPScxMDAlJyBzdHls PM5qBh6sABBaDYGj pSwwvBYzQeTpv0mzLWGj NQfvUS8ofAuuU8NkwZF5 SKWzv8q7Bf69A11yN4Zy dXA+FNKprET4cPV4 oG8wBbSpIdK5OIiuW829 FzQrbUJeCuynw1rcf3ta lNm1YnF9XNUicbCjaVrw ESK2r0MkGt10P76q IHdpZHRoPSIxNSUiIHZh lQplke3loC5yJj3+PGNv gLH6hKH4yC9zWsNiTpB6 QYbjL685JpQrqMLu Qkttm3tpn8robPx6MeUt IDPodbKgnOymYAS7r1Ee Hm29X3DvfVddn4RxYjp4 bc96qURhw1U3fXF2 F2KpHRZygcvxyIYrwJqk DO3cSCKdkhbzFRBrtL6g NGKfI4d4DgXsFqM0GZsj J3JcwzF7USZtqILq GZNrqBRWfS1ivaddc8ku ehxkYuTbPYGiKUh8EUo8 BCQpcNigAgAmAPS4VeL2 UMY4pHOkxQ4yhPii kjlmcQ7bTxc+BIU5mWAx xHFRIL2xZlkwnZI+PHRk VOT4bTjjECanGLHsvU6j BOPjA9r0PmKbHbD2 SHpvP3JhpdN3BFGuoKNl YOJjtGBCbN6otfxys2st khatGfAgWJRtBLu7IAe3 LWFsaWduOiBsZWZ0 VvT8QLB9hKZbpJ2jbXla bpbkfX5gEmi+QmlydGgg KCA2JUk5L4OkAur4BYDg mDhnWT1wyWNpWIqf Ql2hdEsshHmaHF9eKBEw xcckn011LhJkx9ngUWFl uLIlLMxnDBQ8R42cc9W4 WUUeOKJcHSH3yQN3 oY2prJvoxqvghXUgcSss ddEkgSyfPGkfYCrjZ332 FKIhiKlkJrLfSDe7B2Fq Tix0HXFkiAlsDU3p oJUaBHrkLo7ihNuroBiz PR5gLFAxfsxxu700XyRe l6hxYDGecPTsNEovKJO4 M22fk9C1ILSoNMIi QHD9lWQ3lU8trNklanel bGVmdDsgdmVydGljYWwt CZetG251YWXelFecXlMt pLm8P4WaUti8RPJt rYpsBS9tuJChLEosOc5e hYrcfWnqSY7yZJMarxlq z615QmBxl5wfGVHirNHh CXjhVOR1U13cz0K3 HNFbSHMqVMU7kNC6bU4v bGlnbjogbGVmdDsgdmVy kLtePScqPSgcX682ORVc cDsnPlBhdGllbnQg XDjvPHh6A1WhKwfvuLP+ QH84AZSfAN58oMPlhITc k4ouiXn5MdMoQVSyYFE0 fQyoUJzyv6WeNQGh P97pfOHjw4C1DPBmnQwg dRJiPnXqrZV4dR2eYNih trtdx0rmozgrOeafc1wy kl28hX37T38yBCae ZHRoPSIzMCUiIHZhbGln gk9epV5fUc3+PGNvbCB3 oDT1zX3uBXHgHpM1KUmy N762LpVrjJFpYndd w0clp2fkoYi3SmL1IENl knYmkHlfLWJ8t9GdLc62 D68oAIspATVrMUNmXIEu IKJpiXwsun4wyV1y Ii8+LVRpxHL5xLG7aN2z KhRnDaH9SMiyQ832JzPj qBNmZhzrO31jJ8YcfDE+ UEGvFyr6KUSusVpg DU1erUCoQXuwHt3vUKP9 YhTuFbTzHTxxN4MfHIXb whbxbeobcGB4ANPnBWTd xV81Xc0ceDraJVEt iCQJnG1tnxcyx9vurdwu ToYfJXBaJNc2FOd3FRYy gPheJnJrOZP6YpD5EOC0 aSRcmW8opHwikhks wS4nG8IlXPIfqtymNr16 eA1tRpWfZlX4ZYlsAir+ Y4NFIfblEF6VZ4dLHGho SzwvdGQ+PHRkIHN0 tCopKVdzMCJpjO9sYLUp D8u1ZoNmDtI4EJoqB1Ax AUPxscvhRj84bY5hGrRs CgQ5UPbhT6KdbnQ0 HYLvdGEaECdkCPA0A53f l5L0XZQjODBnYSB6qGJ6 cN6mnWytoujisDYzlAdt dmVydGljYWwtYWxp I935XLLqsZbbVpHmCgX5 QzN1XnK8O7GqMul4QGYe lDlzZW9brKNxTGziJj8m yBpryTxuDO2sQTGn hcreMFJroH1oVNJywSGy sBgxML2mPRHhhsvdh386 HnEqWZW8IKUnbRWgR5Nh yG3uGbAtCBHkQQJf X0JarQDmYFatP687JVdd MmL2XWWrsqWqQ2VwTJXi zOjpYoK0o6A7Ko79MYVH ZWFyczwvdGQ+PHRk XEC7jHtjYPdpGUEvxV5n IBEaJ8y6YmWbLdI8QEdj J2XiFXQcitwvBh89vB7q NuUeEoT9URkcU2Xz xoU1BHQybMJjWBdjCDD7 F51co0M0ANVpUWQhPRS9 pWM4lG4mtQhsufddfRYw dDsgdmVydGljYWwt XYxsX943AEIxdBmxBz0M GCE1U9AnKbc8VHXtuHqh DE3ijLOtKGoiAl8beXqg uIqbXG3iEXNurrit VIOskZ1hPDPcaXOewJse WA7zSUOucpfny225KjXb OFK7XGIpdBQjK2MxhQ1d ZyJeJFBfFAPxM7Qw sQSjBYsnW919GGgrPuJ9 LOAbsmQhH2MmZQIvyImn BlQ3j7A8Ny4XRIbwhFV+ HH36vt83A7FwWtct Mqt1SNBnLRP1eLP8jR2l YGFdQCqji7I3xWU2N2Rt hxVkur1bw1pjYCIvLCjf Q18zaKVfb2F0XOZb xIX2NAYugEjoUxJmqM08 Oyc+FHGsyWhkc7YgUnas z8blg1fffCa0PjKsMOKt aoHvmHffHEG7g3Sq Jr44M61jLZiyWUIhCDZe EWMlBAWylHhqjh5meF7m Ii8+EKDccWR2uHW5gQ9g QbAxRdL0HMchW251 PsZtaAChObbro6lhd4ej ySm7LvEoQXCamqQymHpr TSE6y2GwHf37V1BeeAhy z3VzKoj6zh88gNZn s4M0xLF2Y2NwFIBygmuc gUHfnWftTD2xASVboznb KQGdeB6zLAOjN1i9RrXm XuW6UGbbG3CashG8 EIGtyKAvDSJdhMGSwW5p ojavq6iaugodUsPtELQz VXw1AVb8OMEnuOnxDoHc UMD5ReW9JLU3uCYc nK1urGvaxukpbP5iRer+ CPi2u6yycCKuCO0gmSA9 TW32MV88qBBon1X2gSE3 Q2PtBDAmwhhkglgz pBB4JKVvALWpgZ75Og8t bLefUj2mCILxFTH8TRBy gOOqT8KqlY4oXaFzYKIo UOCxN0EugXPtZTwi T286VTzqDaD0PIXmekVu P8YcMQBlwQipXrI8g1K2 Da7DRH58KB05EK11nEJo m3N6qBG1W3GcSJBl qiatilkgeVE7JZUgVDHh dZ74Jn4bqGmoRh4oJGVu TZJ3VHNftFTkZ9XuvJ5g OoAwULGbZJPvD3Ao kFLgWQlyU436LIroVhY0 QVXchvKsE8PcNIOorOlb AeR4l6B9Pn3APp82LE80 BS53cQCye6D1pTG5 L5TdDHGkomfxylzpdJB0 YWUsWJXfgF09Kb1suPvo Uk1vABXfYBR4URYpxAIz O1XmdP3aPyUcQBHd AEFcB7GjnEAmCZbeB421 VCdjUlN4PZGqgdKdG5Tw QCUddArnVpM8f5J6Ks0B ZMjsqhg7T7ZnHplr dHI+GI74KNVfPN02mYXg zWSts9fwsQo8PyBuVMGw NNU5yHcrYHfjq7WmUEBz H56peNXpr1E5FAAl bGx (more content not included)... [facility] Coding Summary HTMLBase 64 HcyenfcuHFg0hYp+PGhl YWQ+UC9XCFExW51wtUHu mF7iW2NLWIyMIdqoDNKK FRmKGbQwbqHuGD9xoEXp ZXJu IC8+GC7qFKItIflrrMLq i9Z6kMJ4D73sph8vCEdn vOD5ZGLoVqEobjich9ru rFt4LKxzKpimZqGu OAHoaU25ETA0nE67Dp25 lDIxhQJvu6ixgAl0OoZu HLZuJKZ1zJnoNAxis0Ic HNPrS54ttCLil6M0 IGNvbGxhcHNlOyBlbXB0 bX2bFOkmxjzxf3yalune Rnl0sb33dJJzv1U1lIS2 Z9EufeN7HFFqsWGz QxiijOEWdO7ibnsrt6pi fjnyZkOgCSHuXMw2XWc1 DHQafHkrOqNgTI17SDQ6 MOSrkpGiD3BkKOYq oAylXmW3a5P0Vb4VB2FQ TconL0WOPUBPLPyiyZH+ ET70as66L1LkLqlrLsm2 NGXbKKG0rNK0lF8b TZTxEEikp8E0nVY3B6It xeHfpv6uy6odLAOeBDvl D42ptDOdt3Y9WIUmaXP0 SPNupIgyJsUryF38 Oyc+NMHcmEjdn3DsVjsg h9adh6zsnIs2ZhlnHGVh fiXcnOprYZW2b5IsNe5i IQDexAG0nDL4kA9v LqCyZpL4VOzjX946QtOn pQShSvvbE13uV5BctSK+ JDQdJxr6ZWNcyLelJC2l V0ViDAXduehfdLVq oZnlDI8fKXRmwrsbIPLp mU9qYZDfW2c2HuUoQzZ4 SJmvX8TkJDAfsenxPp76 nN2bCaVePtK8VZyl W1YizlU6OURzrEGkRYyi FAI4O46gu6H3IZXkUDEd AWW9jNT3qM7iqQvgpjdw bGVmdDsgdmVydGlj DCscZRreD902TTOatIto PkNvZGluZyBEYXRlOiAg MDQvMjYvMjAyNDwvdGQ+ OTKvSUU0nSocZPBc eHOvQBxbCg3afQvtdJns AM6vENTgqvlyJHWizD8n QFZueGFehKxpOV0pAVPt kjjln673ObSfRVY9 JYMmmLEmJ0WmmW2yHqIz UBJfSYVnD6GzkPBgHWmn A485GZufPdR6VWWacpGy C7HvGNHmfWdpSdL7 v1A3Kr2Uq7KyxbcxI3Vx aNEmKoQbIcfoOBc8L9Of PjwvdHI+HV05OFPmEE83 FSt8TZW3fUhoSZkp CEYqF7WcgE3eLsEkXXRc ZGRkOyc+PHRhYmxlIHdp ZHRoPScxMDAlJyBzdHls WE0qTn6oUSBeDFAu sSzozXKzKgImv2ixGRZv FIwpUE0mvOmrY0FxhNA2 UROdp7g9Uu44M83qD6Ke dXA+DEZigZZ4qAE0 eR2oCwZeMbI0SBdtH707 FwAbkKRcRzhjd4pnn9hk dPr2SqB8MZRajoPqcPyu TVI5c7VeLw67H79f IHdpZHRoPSIxNSUiIHZh qAzmkk8yyU4qEe8+PGNv uFR1kFG9uC7wYuLwGaD7 SRjlE999WjZelXVm Afovb4jpw3xwqIn7KmRs IZMbxnBazGnxAGP5t0Hw Cw84Y0BmjHyjq8TwNmz7 km46nMMdv4J1yXX0 D0ToFESugaudnJDosGcr TE9hNUXxveuxULSwfU8a EBWzJ2d3BrOcTaV7QDbr F1XnjdR8KAVevIGh JGMwnZVLsG5azeprb8qs rbloTcUoWQCkJNb0LFw6 TLUeoDlsFzJeAGQ3NuM6 YLV6qHZluG4weFpy rggcyK0dLut+BRB9sKOl wTKFXA1cEcgbzAK+PHRk ORB1tHzeDDurQWTtyX1g QDIjH6k3TzMiJkV7 JWodD9RnziN8FKHtoKUn UBGldFPVmI3tnpqaj8ki rnzxNkDeAWDqEXm8CDj4 LWFsaWduOiBsZWZ0 SnW8HZR3kNGnfH4ysIfk krjluE7sYve+QmlydGgg DHH9YAh9G4ZfDac4MWXb iNnwLX2ooHXrZJmg Zs3ydCwwaVyeHA2kHXLf oqlxe895UiUcg2saQJOg zGZtIAwvYRD3B53mm0J2 KYMbXVFyBBS4zYG8 eT9ioJruoxdqxHElvTll jfAdaRscPVizRLydZ919 ZOBraKgqTxQvKBl5N0Qp Zku2VDIlyCrgCC8v gAWzTJnqYm5duOlnbQnj QM7wRPZcvcntw030MwFm m1vcBJGzqOWpJEnyBVH3 O91ik1S3ZMXdPAJa OSW1dVX1dW6qaBslwaao bGVmdDsgdmVydGljYWwt ERcmX740FBYlqDcjEtZk mTf3O2JcOmz1GDDt tZqgLM2ftFObLNjkSe0f uHlkyLfsTK1dFZJnxszp u117OqHad5btVRHjiJFe UEezLQH7Y16lh0C3 GAAmZPVwQKH5iSO1iE2x bGlnbjogbGVmdDsgdmVy iAueUDaeKGeoY408YSOj cDsnPlBhdGllbnQg BPsyPNp5F7FuUhjcpTX+ JO46RDUeZT17tOUcnWWf o9zgrSs4FlBsKBHwSLS0 dEisUPzeu5PuOKAr J93dhWJgz9L6VJRgcShk tCCeCgVyfTU2aV7uUGwv gsqhs5nbfsmuPwafu1ot ot89cF77T80xQNdw ZHRoPSIzMCUiIHZhbGln nh2pmF5gCd7+PGNvbCB3 gMN2tR0dQMApXnL7QEua K540LcQqyJSbUyar q8vkg1mbiAz9OvU2RBWr lySpjTmsDKH2s7PgGo12 T00ySOlqKOTbHRIbPBDu NHUaxIjbff1sgI2n Ii8+BPYtzNC7bVW5oR6w GbXnThT6ERjcK655ZgYe eLJwLvabT41dF5AdgPY+ YLCxAbc1QGKpuNqg FX8hgTKiSRwaMu7bGRL8 BpGwWtMaOHrhD9GaQTNo qclmpgnrxIY8ZLKhDCZw wD01On3iyTkpBOQp kBCPkJ7mdnskw5whhhbb HrHgIQNbERa9DFd3YPSn sTbvKvAmEFL8OuQ3YVV5 bCHirO7hqXzmhfnr kR2fK4HmFFTugvqdSm85 gM6vIuCyGyL6AYxnRku+ A0INHumsUO0QZ9oJSEos SzwvdGQ+PHRkIHN0 uOewSAwnKVKztG9xCXCn K8f3LdHgBpC3NOqfI1Ip HHCwegimQy48jQ4aTcDe GqX3QNssV2GpmsT8 UNAtqJLeLPzoLWI1Q98i k6E3KHIjJOOdYDV8oEQ4 yB3ztHkyxufzsGTppRhf dmVydGljYWwtYWxp D602AJUzxVytUgQcTbM1 MrF8QvT3S2RiGwn0WIQq oRopKD4nhKIaONkxZj8s kUhltKusYB8rYMCv wfnuNWJkgM1vJNZmsWHd oLjkGU1eHEDxrsiph777 JtUpJRL3XDJmgWSkJ3Bl zG9rXcBfVWAhMODa P7NbaKMtJTfdY475FJsb GuC1PFYkarJwH5JpUYPw hOvlEvA5f1L4Cz94LDYC ZWFyczwvdGQ+PHRk QQE9iMkjFQhfZXJsxC2m YCLbX4m8DwTpNvK2RXzk C1LyMSXlgxwfXy61lD6e OoXpHdI6JQwjX8Qa urI3CIVdvWVhUTluWQJ8 V73bk2D5JTJgBLXnEAV4 oFZ1rH2noZydcrzxiYVd dDsgdmVydGljYWwt UQlvX178URWhjRvvGq4A FZQ1H6GvTlj5JYYgmEoc DT6rfJKiWIsiZb9ctKyg fIhnQX5zSVKxltmn UZQqzJ2qWMOuyRBrjYqq YU5mECOnnqjxw142UeXz QEG7QHTutLUeG7FgaH1m NmXgKWMeMMAgW7Xo vTLlWPcxM343MTcoHcE0 TTLmwqUgU9NoXBXagGcn AyH2w1X4Gt2ONMpjbCK+ GL51gs90F4KsVkrt Gjl0IXNgXFT5jVO5eW3r WLHnXZoui5H7uGL6P2Pa ybHojc7tn1ciTBImYEhp S98fzIPxs1M9ANUq iRO6WFOljDowZuZktJ82 Oyc+CSBreGzge8EfXxic n9slx5setVc4LjVnQRSr bqIyyOenNCO8v0Et Zy39C04bZLrwVRDdBEQh WCCbXMQwrErawh5bkQ1o Ii8+GZSwmQQ4dFQ0hO1p PbQjAlU7ODflT967 MwUijAUqWuzbt3vaf6dz uRn2SsTnREGvefDjeFuj GYL0z3BuId20N4YlsCps f4GlIot4hq20sANg r4V6mLN1E4PmOJSwxleh zPIueQpeDJ9hWNOcwkxg IJNewT1bDFDrF0o2PxSy OhV5DXddL1CycbF7 AGIogZJrWRXbbSRLfU5m eljze0yitegfRwQdNLTm CCp5KDl7JSPiuJhcSmSa DTR1BqC0WUX4nVUp oC4jgWvwubymiP8lAfo+ XWl0h3udwSKjYY7doBX3 XD34DJ12kKHfj9L9qSA6 X9AaLCKrrihjausp uXD1FVMeMKRylB69Ey5q nJkoUn0rWHFjESI6UQPm nQCfQ1EkcK9xRkKnKFEp UWCrF8RxwLIzVFac Q609RWkiQqQ4EARuyqRg F6UhKMFthExxSoI5p3Y2 Rb4NKF87AP65HS23uIEk b1R5tQH4A4AvAVTj zogiqlxtcBJ8SBRjTGDf wK76Ti2swUmtNv6pCGGl ZFT9IRSgmHIiD6AkuK1l HkOiIWChJYAmP9Hi bPWwOKaaP403UEiyZuT8 NYGwnaKgH7UsSFMfaMxp QqA4m5S0Zs1WZx88ZL54 CW02lQFlt3V9dLJ4 C6TwENLgtotpxauvvLT3 DVGaLWSfzR99Rs9oxJxw Fr0pPRYxXGH3KODwsISc F8ShpF4rQgMjMHFf QJAfK9RzcDRvLPieK759 ODdbAaJ7WFOnqjYkE1Ck YUPqfDvdCxM2x3P9Yw0P GWqvhlq6S4IzPsep dHI+VD79TVLbUI55nXDt gBFpn7wbnZe4NuTvAKEw EMV5sUyhRThfn9ZtVFFw W98ocMJbi4X5TADr bGx (more content not included)... [facility] Wound Care Noteon 08-26-2023 Wound Care Note [id number]#1. 00OTGTIFF [facility] Coding Summaryon 08-23-2023 Coding Summary HTMLBase 64 QfbazckxMJw6rJc+PGhl YWQ+RD3GHJNpC83uuWVp bR7fI1ZDLFeYBhjgDQUY YDhBEyRrxiZuQP2yqCAs ZXJu IC8+LL6cWQPgQyknhDWh x7B1zRW4M31ntq9wEMpt cWK9KEQtXjIgboxrw6zr uDu7RJgyOqpnMmRi UHGxfP42ULF7rP19Fi50 yBMhvWTbp5apyGn5QlUn PRAfZXM8jUfbQGkeu9Ry OCNpU67bxPDem2I4 IGNvbGxhcHNlOyBlbXB0 nV2oHZkegzrgm7hivrop Zhm1ni66vAZkl1K0gJJ6 Z7OfevB4KPAvxIMy OegugBEHoO6qinxyd7sc onhiAgAtGTMhRAz3INx3 OFWlaMrpCiWxRO71TPX3 JIEkyhJhU7OzHMUt dRbgApC9h5G0Qu4PA2OD KrefC5YYFZUGERmfsGK+ HZ57pr97T7QbShefXvz9 NIDjTSA3tXS1bP9s SOSpKYupw8S0mMN4D1Qt qeSlbg3lp8bhHGIaUDmg K88hxWDeg9N1DRTlbBD5 FKHckWbbZsPpxV53 Oyc+JZCedQgbp9VqGgoq a4bku6tyyWc5FokfGGVg onOcsJnqVLZ5h5BvXo8j MACfjDT5fIY0lD6d ZwQoVfI0IDejA796GdKz eGLlVfunE11wN8RenUQ+ YSPtGlw1FOUeeQwmIK8a Y3DrKJEjzktkuJWm mKsiCZ6oEQZqyeuoXXHb yL2dMVWuP7x1DjIjTaS1 DOtpL8CmBKSgovhvOp18 pD3nBuHzHyQ2XYed X9KazrH5BIRsqARaPOzx MKX9W11uv9H6OIQlSRLa GYG8pDV7wX9tyIlrhmtb bGVmdDsgdmVydGlj LIpgNQcbO574ZWBmjHcx PkNvZGluZyBEYXRlOiAg MDQvMTkvMjAyNDwvdGQ+ ZBRcQQT7qNwcYLCm yMBrIQdtXi1ihMjgmCxk JR7fMKQfcurjHXArpL2x LVJovARclYgxAH2pHPZl jtrrv129SbOqBDV4 OQTggPBcL8FcpL3hMpHq MWGqDJKzV5DzoZUbEIlk X625NFxdUkK6BNCidqBy S1WqGHBufJqaPlU7 r1R3Wr0Jt7OacwcdZ1Fb fUHfVoXoUrbjABb0A5Vt PjwvdHI+TT10LPDtTZ78 VSo6RWW4mRbhRZzw BPDiQ2SniM4yVeKbZGUh ZGRkOyc+PHRhYmxlIHdp ZHRoPScxMDAlJyBzdHls HZ2iPv2rSCNcTVLp jMbtnCWjYlEbp7gdZYMk VCbkGD0faXpjO0YcoAQ8 MPQdj4f8Ro33R92nK2Sa dXA+OZSvcYM5oGX4 rN2sXxWxSoP1FVayA043 JrHwlTLxLiirc1czk2tx qSa1HlW6NUCqddGkcKlc FRQ3l7LuYc40G92l IHdpZHRoPSIxNSUiIHZh oTnktr9qgW3nXd8+PGNv uHY9hAF9uM4gVyYxKcW1 PXmvW370CbCytRJv Txgwq2agi4uwcEt8UrMo XMLyutFafPcwAEM1j8Sx Xk43K7SydRrcu3CrNao1 ua65pQJbi6Q5sHB7 X0FrROAgjrimeDXrmGpy SD5fWWZhdtvtZGGblW5t ANOqX9d2JyWwHxX9DUmb E4VocrQ3YHFbwSHo NTYhuOMBjI5wypsxx1za bwjmVnPgEUUgEVs0EWj5 GTLpnCanFkRfGAP6PfH7 DSI3uZZeeW7swWqz bztihQ0nQnk+UQV2wBAb mFOTBU1tXmgowCT+PHRk QON9dQzqIYgsTHSwiL5e PCTfB8o2FwSlOfQ0 FMbbH9EzphL1TPMevANn WAXygRYMeH4uarfyn1tk vnsbDoByXZRqFKc9JAi4 LWFsaWduOiBsZWZ0 EyU4WEO6uEGudL9uvBsk stsxtC3cLno+QmlydGgg PVE6JLw2A0XaNqj7XVZh jQquQL0lnUCdRGat Bb2wsOgnaQvkXA9lUOEa kisoo633DwRjl5ydCLRp kGWjZRgyGPV7P00gz0Z8 PNZeEVKpSVZ4wVG5 xT4bjVpiljslxFMnqHbz vvXlyRiaQNurQTklK886 UBRtyThlNpSiNJg2P3Ou Lfl2IADtgXeuJX5i iBBdHYrsWj4cwNochAzi BK2rAIKnahisx221UrZu v7dkDCSyhVThMGsnEIF9 M51kx1B2TPPgYGKp JTC4qYS3sM0suUaudbzt bGVmdDsgdmVydGljYWwt QTdcA585HNGivEubOfZb yJs9F1OjBln2EATc pLjyEA6kzMMaQXyfJx7y dVtzlHrfFC7zQFTvfwfl p067EtEst1qtQBXuiJBc KFrlTFL5V56ou1H4 ILClFMZvBGQ0oHF3tR3p bGlnbjogbGVmdDsgdmVy lQrzLDhdLNydV253CHBs cDsnPlBhdGllbnQg MSgrTMu5Y9BkJoixlWX+ IA09TLBwIR07sFXkpDXg p8jbcKp6JrItKZMxMSM1 fQypYDuue8MuUFVw O62clWAzj8Y2VLHbnRsd cRHfJwNawKL7fF7yTRwy hdqwi9wcyneyCceyn6ck qu38iM35M25wHIcf ZHRoPSIzMCUiIHZhbGln dn1cmR2zJn7+PGNvbCB3 hWA3vS0iMUWvNgR6XKyf H027NjZrfEXyUzzx i1mou8qcmUb5YoR0RRWl xgRzpCaqHCT5a0MmQb29 N78eZQnbMHYdSLHaMGBp LTSirBhxtp5ojN9c Ii8+GJLdhPV1kQZ9zZ1u QvPfOsM1ENfjA272PuTm nYBhYwzfN73vK1SnjWI+ NDKkBcf0NQEuqTvj UH6muKPgLOhcAp1wGUC9 SpRqRrTkLQosJ4DqQLUp tyevaegnqXJ9KAVeEHIe qV10Ha1ujLrvDKDu cMQEpP6nxxdhk9dbjqvf HkVdWWLhUNy5SHs6NATa wKhzWiBiEIJ9PrS0VUJ0 eRGawP6soGaheonp zD6bC9SfFKMvcckwJe92 yN8xDsKtRbC0HPsoHcm+ B0LELjjnUH4HP4wPIEjl SzwvdGQ+PHRkIHN0 jGfgWEfiUCRewZ4qBLNj F1g8VmBuBlL8SUbvF4Hd GOBsyfmnGf28oU6wZgIx QhW0NTwjU4RgmpC4 WMBgbRJpXHovHJW8P41w e3P8ZLUsACIfPTJ3fQR0 aO2amNvydgxdhUMexPpv dmVydGljYWwtYWxp P412AZFsxSjjVhYuVbY8 SpV4KzX8A1EcJgp4TYEn oQcjML1nxKVdITlxVv6c jXabjPsvLU7wRCTx wtahWXGtxG2kSGXayHKc tApmUR8wACKdsxxfo921 RqVcMYZ2PIVfgBBhG5Lx rY0nSzYkOXHwPTNt A5OwpZLtAYzaT267CDvr DjG3CMOghbYxA5CkHPMn sLqrIrU1p7Q4Nb89JACF ZWFyczwvdGQ+PHRk ILI3cIcaHJryUUKblY3s NUElZ9u8MpWzMyK3QFiv A0AaGMBlrjikSj92cQ4q IeKbGgU6UQcgI3Iu lgO4LYVflNDlCAphXNG6 E59ql8F4VBXtTPJcSZS1 gGB0lI2ldElhquuopAUr dDsgdmVydGljYWwt TTehN759ITSaiTbdCn9T LAO9W6NpYnn8FUIfxOzu EK9tiRScFUyyAa9guQib oXddVM3bCVPwwvbo IYCfvD3eTHCqlABvdIni FQ7xIVQsjlwtv855TfPu NVY9WXYmsRNpB0HicN9s BvZfYACeKMRgP5Kh mBXlBFauA359FXfaZjK1 HHYhlbErA3NsTZTkuJkh TxZ4z4R4Pm2DIBxnlOS+ FN72dk03C1RnHlcv Dnp3DNLtTDN0bCC5eG6y NSAzUCprk9H7eRO6F2Du czNcma6mv6zyBQJkRLit O86gpBQwr3S2KGWj rTJ4HFKewIatSkKicD77 Oyc+CACmwTgpj2YnYkkh z5rlw0rxrVj1DhDeRGCu byYemPrlIWD6e7Ys Tv24N94jLTdiPOHeTIYt MYGxBKHmqOpzta3lvT9c Ii8+DBObxRL5jBQ4xM9t CbDsTbD9QAkcC058 YgYjuZLcTwqcv3cvr9bk vTy4DfCxTFGrxpAxpWyg OXQ1c2OjWm02T9WniFqn m3LzMir5sx31iGFe v3R8vFM9J5NjBTLhensl xKQmfWzbTJ1wMVQokjzb ANQhfT6nCWRiZ7m0PcUl VyU4NXqqU9UdwzY5 LDGmnEWuJKCemAMZkP5i oudyl3jliznzUyMdEOZw DUl4JCv8ALAytAgdKsEn YXO3DuM3CLI5fTYz vL6awNigvcgobT8aDzq+ NSz3i6ikwEWzVB8ilTG0 ZM29IR48oXBoa1E9xYN9 Y0TnPQVlrswmqjzx lAZ7HMFkKFLbeC84Pp1c rDhcSs8jRKXbKQN9SNBa iVQtK2RlkY8pWpXvMVGu UMVqZ8NfqEEcXYyo W910DCzrFrN1CTEzivXg D7KjMXJawLuvQkH6k2O7 Za5RES48IO43FW23fLOv b2V9jDY6D8MoWZUc upmcmuooiCY9EYWpJGKn cQ19Tf9qsAfjWa1qBHEo BTS6YIUqdPPuJ5QhcU9e AiQcCUBmOQLuI2Lb vQApNDbrN207BYivPcA4 DSNvfgDaE3CaABBlkNmk HvX4s3V7Lc2SNc70OW95 VB62pFOnj9H9fJB6 B3ZnCIRzyrivhoriyCD3 CYGxHYSvdD32Wm7bfHvi Xo8vTBFaSAY9DZXrpDYj Q6MpgD2lFaBpSZTg LBNvK0QlwXGiYSbmL348 VIovOiW3PGJzpaXsF3Tf MJSmqFxmZbJ5d9M8Gl1N JVhvdwr4T3WrAxaj dHI+CN65FUYaCN13yWZi sBVzv7qqvMg1ClDsZYMm RPI6xJomGSjsh8TnLCIj D23icTFfe1S5UJQw bGx (more content not included)... [facility] Wound Care Noteon 08-19-2023 Wound Care Note [id number]#1. 00OTGTIFF [facility] Coding Summaryon 08-17-2023 Coding Summary HTMLBase 64 IocruhauTUi2nXi+PGhl YWQ+TY4EOPDqM26vrCPt bK7jH8IJPEyQQtwuDYDH QYaXBkCdumHlDU6kwJBg ZXJu IC8+XY3aMGCuPfwlqFPa v4A7oCQ7H58bzz2jIXpd jJA7OKGuSbAfllzch5uw sGr8KSipIuocNvEv HSBaiK66ZNI4mU01Uh87 gIFjxZBpa6pgrAo2PbWf UTUwHBP7tUoxXVqji3Lr ZDYxK54mlMUcd3K4 IGNvbGxhcHNlOyBlbXB0 yD8nOAjbfvmmr1xcnmls Tmv0pe35cEMrj8C5hOZ8 Z2SaosK9WYTuxAWw KeboqYLHuR7siiqqg0ni tlsmJvCySHYfIXz8TBf5 KETtmVgqVcKkZA71KSK7 UZHugbJwR7KvXPQg bXlqGiP3k6M4Qt4AQ4FZ NyjqI0XKOCPDAVnwcFV+ KE97sw86W3CaVjlfMji9 QMIsXRZ5xTJ4xU2k GXNwAUcwz0S8iXC7R5Ns oeDufc1lr0inXKKmCPdp O37dhCDxj2T9PJJngVP5 BVOgiNagIeZxuK24 Oyc+FCTsgCcrn1AdPyzc x7wtx1hiyOd9EttmCANh xaHycPqeHYC6y8QvPb6i QCLczCX7aSQ0vY2o IsSzKgR5NTnlW258YjUe kWBfQkszK25lZ6ZquCC+ QGTnBcu4UBMjgMcmYH6y P5HvZRRnmzjnsKVg pOpgAH6kMSMamsweDSBl oZ1eLUKeS3r6UhSgXuA6 KTvxE9UyAQMnuejgOk90 dH5uMfLqAkY2GUjc O8YantN3AZStgTTkRGgv XEJ1N15fo1Z8KEQwOLIi EYH5dGH6wG2lfDmneruj bGVmdDsgdmVydGlj ESnfEHteS335CAKhrQtd PkNvZGluZyBEYXRlOiAg MDQvMTMvMjAyNDwvdGQ+ VYUlLCZ6lLoqFZGj iPDmOYhaPh9jfMxcvYbx ZM5sWPImiguvGDCqbV2z PVEpbISxzDotGI1hNBWi ooqyn781IgNfPXW3 XZKstLChR9DhcE4bWbOz XBFaHKRiT0PouEVdTYsk L882PNzmJkY2LNAjaqEt N9QgUJCyoDqrBaH7 x7H9Bw8Vg0OzwedlN3Gz oFFrSvSwOyuwPHq8E1Je PjwvdHI+RX71NORaDS44 SGl5EQT9yJhrNYdb IDKuB3IsnR7bXqZvDLXa ZGRkOyc+PHRhYmxlIHdp ZHRoPScxMDAlJyBzdHls NZ1aEc0kAXWlUUMe eQwhjLRqTaCic2xiGUPq ZTxtPG1auBhfY7RmgDH7 SKDfu7q9Wr81H30lQ8Aa dXA+XBVouUD2bGX1 gI8nAmYeJoT3XSwxD794 VuJxzYXiBowxp1ijn5no hYx7JlV9KTOksaNnkBoa GZD3r9HtLy03X51c IHdpZHRoPSIxNSUiIHZh xDpxci1baJ5fXu5+PGNv yYV8nPU6bJ5yVzJhHsK9 NRgcO210FhPuaVWu Gvypv8zax9yemRo9EaBm YIQonvXvdIkbYKB6b1Le Gy63T6FylVzgb4ZxFez7 pp01iQMtt0C5xVM1 F7NcXIHpgjojmJNxhRjn IP5mSCNdumhaCHCqsP7k JNGsV1c6HsIvYlW8TPcl W9RlxmO2LOPucISg OBYcsCDOrJ4vvwttw3wg bcajKcSnCWAlGIh9ORd6 OFXsbYutGtYuCOE4RzV6 LZA6gLPniH0ekGst qxrhpR3lNwh+FPJ9eMNd nNDQGR7uQsfpoQU+PHRk QHR9gWmxBZeaGMJqzD9y RJQeJ9v1VxVcQxF6 AFdlG3TennS7NFZzyXRb VWNxzEALaE0mbechi7re isucDfCbGLKdYLe2FUj7 LWFsaWduOiBsZWZ0 SiN1HCY1bHEylS9xyLmi bnhxxW3hSuz+QmlydGgg XKW8RVt7M4FcLrb8KESu qMjlID9amVEaDGvj Wb5jmGphlKbcQH0zFPQj mtzan571BkKlr7jhAWAt tIGuDIrlGXS5G55ip6X3 AEUxXPGzTOR0lTM6 aR1myCcdexpjbFPijDke pnJbbMoiJEskXBzaB164 VKMccUxyJqZgXMj3E8Rj Ihn7ZWUbmZsiWM2c pEZuPKpfZo9etYwijLvo GY2gMAXxbhbxy799CjBs o5zzQJClqXVmXLdfGJL6 F57ey4H5XUJtMEYl PSA8bWL2kM3roNitgwwn bGVmdDsgdmVydGljYWwt HWuvY482DRFumHdgGxIy eOe3J1XqNed8SDUi zJobMO9lgUAxIFxtQq0w oCxdxOpuVX0tIFEfaoja s367NtLdc5muMOPvyEIr GSvbLBC8Y48gg4A7 YTShPCFjCBP4nLT0iC7w bGlnbjogbGVmdDsgdmVy yIshSMvrGWbkG214PFQb cDsnPlBhdGllbnQg ZRviJFb9K7NiAtapnAB+ SZ12HLNqXD34eEZqzFUv q3yioXa3JnMcIKQwLRR5 dJduJLcjp9BbBUHj O08rdNPvh4H0REEooYoh nJWpCaSjuPR4nK2tCJyt whuhv4wmlzkhWhbvz5az hz10hR69G88yQUzt ZHRoPSIzMCUiIHZhbGln cx0lfU7iIw9+PGNvbCB3 jCV1gI7hWUChBnF5KYwm I938OcEsuUXtQkoq r8ole6ewlWr3TlC4PIJi vdWcvPupDVY8r2YlFy26 P31sHTqdPVObYYIjHJCz OIFtaZjrfg8fmX8f Ii8+CVJapHW9bVH9zD1c BjJlVlX5SAucW045MyWv aAUpAfsbK80bA7KtqWV+ PTVuVgm7OBIiaUdy JV9eqRDeLNwoJv3eIDQ9 IiAxHgUiXEfaI0FnAKUv erhhmeqnlHE7ERIkKLYh qD86Kj8kwUqkWCSw nNXJkP1ewketz1bldsoc VrHuMJNhGSp4NKz5XNWu sBpjSxIfFAD0XiU3ZLE8 hNQyrN8tkHndnglz pT7dW5SgDJMwskusZx49 aV7uPkMzOrD2QEeoBqt+ J5DQDbjrLU9FZ2hSWMqh SzwvdGQ+PHRkIHN0 fOywSRjaMBMgnB4zMNNj X1a8TiTjAkO6EWxvC5Fi FFZvxxldAo00bE3dVeVx RoQ2VGndD9OdxoP8 QLVbsZRtYCktPPD1Q72y o8Y4PDRhNTUuJMH6tNW7 zO8msOytivbjoDKvqDuf dmVydGljYWwtYWxp J399IORpfAcxXbQpAxF1 UiU0MyN2I9CaVwg8GXYe cPmxPF9sgTEqHPawUb6r lOiveJkdLX2tDLZt qnlfBDWidO8mFLNxoTNn zBegBC8kCFWkgixmy577 YsRzEPK0YGVkzQGcT5Aq nY3lAwMzXOEkAIQg Q2InyZFeVDtwD391GSrs XvO0RFQyxlAqK3KzBXNf vClnDuR1j0A6Rv74HPLH ZWFyczwvdGQ+PHRk UIQ4eFwgICmyWUGzzM8c FHCaW2a0OuIgToH6BTkb J3LsIPOktmttFq09xT3h FgAuDwT3NRfcN6Dy knT9JYDwdUZsHZszTXS8 P65vi3H6PYNtVYEzAKL6 vEH1hI1vkGgzoneirSHy dDsgdmVydGljYWwt RYwbF334WVZvgGrbPn2Y SYY6Q7ZjXok2VUHuyDkk KY9xfVOpLZhkPu0phRpz iJxyBG3mEODnfbky RKVobR1pTSAoeMIhqQuk CD1nDEJdmfilq145HoTr KOE8DLNwsFUpX0IyrU7n TyCaDKFdBFMyU1Uz rFIcPBykE465RQubZcK1 FYQitcXaC5CpMPGonAkp HeP6x2H3Ns0FVJzecJQ+ QG13ap41Y1UcKern Zrn0VLBhNSH9oYO8oO5q FKLgIKffi5C7mBG2Q5Pd umPgaa6ow7arOIHvZIgh P32svZWqr6R8DDDp fRQ4NIZsqKyjArYkiU83 Oyc+QCEkvUbxu0XfKfoe r6ogu8rncHk1LlVuNUTy jwFcoKhxUIF0n3Ev Za57T68jNVvrWQTpJEWa HPCeXZWytAlrsk3anV1b Ii8+UYJqnYP0wRQ3sQ9v PhBzUsZ2YXvfT601 CeClrHZnCxelm4atj5uj zHv4AvOnCQVbsxSwqHgt LSR4x4QjOc66O3EejMou j2DmKms7sf53zDNh x6E7kOC8C4SqAIQqgfki hJBtwBeeIE1qLOXssdrg XAGldN0oLNLfU7p6VfZm DjW8RIsjC5OezqC4 TYNnlATvIXLvoKJYmJ3h qqdir9fdktvxYvQsYHNw ATx2ODr6ZBBanYqmZpMr DTT8UkO6CRT4lXYo nM3ulYrwnorcvH6fNpi+ SZb1j1hpmFRdZM2phIN8 WS41DI84lPOdo4V9qYO8 T4LaGZMncbbfjihj xYS0DEWuGRVduE47Ia1p eRvfAf2yFXPbSZS5BKKr oLIbG5UrtI0rXaJkUFOq XGHlF9IrcIBkSDuh K540QKsyUkM6DZWmxiZk V8YjKFBouDkrJiN6a8L7 Bd0LJU07IJ09VY58iMFj q4V7jHX0X8NoTLQr psjmnzqzpUW2FYQdFAWz pK75Xg8goLasZy3hEXFm QMW3RQTkfXXtU1KqvU3z GlSxHLVmXORkG2Mz qETjNTbpO264XLncVtT8 LWRkrkOxS5YvTUAsoIkd DwP1g6T1Mx3OUd78ZC59 EP20eRLfx7Q3yEG6 R5GgGPDfzxlyigskpTQ1 MVAwWJMhfS69Zv6fvXth Nv2hFSIuADY9MUAhcEPp V1NjpQ5vTbHzGCMf ZLZoX2FwiODqKAznY594 DBcpRdO9ERFiqzThV9Pd WNBeuJfsIqG0n0U3Rr3J QEaibgi2F4YbDnrj dHI+WA63LYExQE84oOWl bIYtr8kuzQd0RuMxRKOd BKO4vYnpGCmwa4GcEHXo G76lvFOza9S3CRNw bGx (more content not included)... [facility] Coding Summary HTMLBase 64 AgnjtckxYOw4hUd+PGhl YWQ+JG5SNXNcO15xtVYa nD2bW1RTBDwXKuzbUKTU GEhZRuGqijTaAA6nmOKy ZXJu IC8+AK9dETPjZdhrbCSk x2D5zEI4F89uyw5dOUay kEG5BYOwUbEjzvuyu1tf qUl6DOrwYerdQbXb MEPuoB09JJU7rF76Dm99 dXQznEObp4jewOq5LiFo ZGJmJKS7yThyAQjcc9Zm VCLeZ73ylPQut2K9 IGNvbGxhcHNlOyBlbXB0 mC5rZQvbrvcht8jllzgb Lmi5zz20dDIjs2S1aFZ1 F4OfdlQ0VINjwEPr IbjxyTENeK0aubtem4lj oiovWkBmWOInKQc1MLa5 WLFcoOxyHrVxKX41DRG2 CNGjcnQkL8GpIOFx gKnyDhH4y2D6Uv9IJ7IT XfraT4YMHYIQSFdwcZN+ FC18au61M6RfGlfjZek8 XZLsOWE7qMG9lK4d TQTeSZfxd0H9kVC1U3Ne hsRlbz7kv2tpFFLpEBbx U94jgZEib0I6IJIxlGQ1 CYCeaNsoQbUhuW12 Oyc+JTDngIhkq4TsLpbl l9dov9zjtBq0YaxlTFBa xgMzcBpbGEV8u6FdMf9b OBJmvOE0lPV6wP6m HyEiMoD2VRttX405OrDf zKKgOdhrT08dE9LcfEP+ BQAsYcj9HMXrxMuvGD6y G0KzHUEjfdyuvYGb qWjvFR3aRZArblbrYMTw uG7jSNOkN5c9SvVcUtQ8 LJlsX2SgCIRpwenoAu42 uN9nKlAsZrA3ZKxh B5ErhwR0VXRyyYYfEUtq RLQ7P47qh0K5MTTlWRHj RJW2zXI6wS0cpJfbadku bGVmdDsgdmVydGlj MHflPFgjA156MCBjwCdw PkNvZGluZyBEYXRlOiAg MDQvMTMvMjAyNDwvdGQ+ HDErZKN4mJprTYDj tQJsWFhiRk7yrNtegOcq GA9zSATwmuiiLXQdrA9d HVTalAIzyUewKS4wGNHd cpqle519YvOgJQO2 JOWzwOFlC1SbmU2wJdVv FADgQLLzT6IuhLPeZIpq S704NVhoHcJ5RTBvioOo Y7OoNFNfsIkfZmP4 w9W1Gy2Ey5SyyiazS6Xz dUIwDtFbZfkqOIn5Y5Ue PjwvdHI+OZ08DUBkTX21 HQj3UVC0kRdlGKnf GQPbM5NinM3kBuLdORKm ZGRkOyc+PHRhYmxlIHdp ZHRoPScxMDAlJyBzdHls GX4iGt1tUJLiSXKd pYowgAZsHpDkr5xrDNHt MCxyTA4wvYsuH2IsuRU1 GHRwh4m8De36V03qZ3Rk dXA+FZZgdXF3tCR6 cL8oBySfNiN0KCnzR985 KlGisXDbZtrex2aev1wv tWw3JhN6RBWnqxIvsYde JXF8z4VhPy45Z92w IHdpZHRoPSIxNSUiIHZh xSysel9dlZ3zEj7+PGNv xUK0xOS6lH8nOuXaFaG2 MQyyK817FsFveVPx Vpdfc8chr9nfwTh4ZsHd EAXipfMwwBxrDXX6x2Mo Iv95F2BtaRkql0KzQiw2 oq88fDQbe3Z4yJW8 Y3GxDRAwchlfvHZgaTqk ZC3kGQLidqepOQOyqJ9h UDTeW1t4AaMjSvB9LYfq N6BihxZ5YARqbEAw EYHicAMHcJ8wwxbnt8mm flstZpUwUJCwXUv9JAp4 PIKxsDscFsVvGAG2PsY8 TXT8hBZmjF4dxXsd dpnihK7mSef+OUL3fBVa qWGLFC0hAmhldYN+PHRk WBL5jJsgXCyeWKHwgT9g ERUyY3q9VvNaFqW6 NQrbC9CittI0FGIvzKBq OYLtqTHUzU0cperuj9ln fqppHvRhYKBmSMd5EKu6 LWFsaWduOiBsZWZ0 FpZ0WKS2iXOcoZ6qzEnm oajjgU3sYfe+QmlydGgg YDS2GQv7S1VwTrh5NMSh hVoeLF7gwEZvCOhv Qw4ezYtdzDmcMA1mQYOy xsbye432OoPtf4sqMUGv eLHjEMqpWWS1L78hb7J9 LEGuEMNpZBV0dUC4 dZ0ndRtxrbjzmVHxiSbe zxAlaQcuTFtpPBpkE636 EAHhkXvcVqEoIZw4W4Qv Odh7DZUjzFrmPZ9f sZDsVPvuZw2sbXtnrVti SW6qBYFvsncsm507AcLa v0khYORhfQCmWFksUOF5 G93ke1A1RAFqTTGn YMU4mHN4qX0xmLidwnsc bGVmdDsgdmVydGljYWwt UBpiZ927YTKfxPthTiUl nZj4S5FjMll6PJVe oEncFQ9vlMZaAAtsLq8x wWckgZyoPL5jAXIjxvlx z166QyVia7ydWFHoeYUs FZgiUSG4W26ms0T1 UZRjVYPjQPU0gYA6eR0r bGlnbjogbGVmdDsgdmVy xQtzBZmiERyfO727OIZy cDsnPlBhdGllbnQg RLrrYCw7B7ZsXzhixWO+ PX73UILgZZ10vNCqlAMr r3nriUh2IuLvDMIxVSN5 uTnsLPykd5RwQVMh A21uvZOgt6I2LCBbmVlo fRMhYkXjzOU4tA0gZJtt digdd7ybhkqgKidgx9lb sf25aB84M32gOVmo ZHRoPSIzMCUiIHZhbGln tj3qlJ3cFt5+PGNvbCB3 rAP4cY2gBAXuFwO2HErj B710AhBmvFJrZgtj m5jlb1zgyVd2WuD5GTDp rvRxdDjeMSG7e3HmNn92 P48wBIpqPQGsQZFyGGXs OHJdzWuubq5vwH7p Ii8+NQSplPK8iCA0vW5a KnLcKjE7BQttW646ZxTs gJOtJmqzY62pU8UikVV+ DFFuIsd3DXYfeDyz DL7unEMbMXymNz5aUEF1 FzLrSyEyKZsuS4LzPXAy psjtpvhdiRN2JSLmRDPy gM07Br8ktMowQEVr fUDSeQ9pnfssi1bjtywv HiNxTWQtJHr0QHo5EMEq xNzvPqLwRYO5FoM7JJF1 yIFbwV3yjRguvsxv wG5zM3YrRLYjxhysJc12 xE1eEyXpKwM7UJoiQvo+ G4AIVmnfFH6AU8aYSOzc SzwvdGQ+PHRkIHN0 gMscWIcgCHYjrE0iKLRc V4g0HiCzNwL3EEbxC2Pd ZFQxktrtZy10rQ5rEzSl EhN5LWroQ5GfkmL2 YGDcxBHiTBolKBS3Y36v t6H9WZOjAUUfHJB8eWM4 nT4wqHjhqcnvrSHvzLjr dmVydGljYWwtYWxp B088YCMyrOvsYqZjDpC5 GuA6ImW1C7CeDkw5OJXo gUacXM5yvFVpTEkcBn7x fKagkJxaFE0aFLPh imuiIKTgmN8uJVRktEDq kFhxGY4sSCAsniklm857 XvDhOOK7WSQpmDEiY3Zz uC9aJoJiOWLwHTSe S2BxrCXwXKpvN706YIcv AyS2BQUcxbZgU1IxBGDh dKdpJdU2x4J4Xn43DWBF ZWFyczwvdGQ+PHRk CNI2qUikRHwaPENaoP7y HXYkU9q8BjNwRpK3ESfo U6HfDMLeplhqAp00pI7c LhMqEsT2DSxfG7Pg qaP4QLQydWLkODbgUNT6 A84nn3S6NHErBIVxJHZ7 tIY3tW8gzJrijvmnzQMe dDsgdmVydGljYWwt MBlrO504RMMpuWdkNu0D HEK7M7NrGiz0KEBkjChz GA2ddCXkCCgfYr7gcZvj xTkrVT9oBKXeghpr PGStcR5rWUFchUMalLwh UY5oNEXssdpjc567RgOu HUJ1OSJvpYJpW6KsdW7z LpLwKNLuNUQdQ3Ej iYDoHUatW869VEscVfI1 FPIfljHmX6CjAIXevGys AuU2b4S7Qh3ACBvcfWN+ OU34js78F4YcEomc Bhb0AKQpAKU4jBR9xM9o FZVdDBqvk4K2gYI7M8Wv jzDsxi5ln0hlVBGeQQhy K12uzZCfd8D5RLWe gRD2GSMvnPscNrBwfK25 Oyc+RJVgeHjmy3YgAgpd b8vsl8vbvXg6NqMqWWWt ctShlAnqYEQ6o2Qg Af65O92bKSqqBAAfLPCj NQZsXDYjbQdkbm1paV8o Ii8+KLZumZW9rHR3gY1n SsSoNqD4BLdsJ749 OdBveEThBpigf9nix7zm uRj6XyLgADIpxdFsnTju SXA0h8QhCm39Q4MifNeb t1QySon5yi16uHMo b2G0yDC7H8CsYMWgckgn lEWnqItaFR2zXFWvhhjt EUNpxN9jDEAnW7z9EmPj WpZ2FRqzU3LxrrE9 JNOrzWXvGPZstMVEhM7w xvcuf0kqtgfgOdYbWWSf RKa1DVm3KCDswZrvZxWp QVC9QlN4GHL8lAPl dV2mmDflhwhvjX3rSgr+ ZZh9n1cicXSbQM8whZG4 JN70YG86qPVty3A7xQP1 W7VmLEOqhxaskmkr uKC9MKGgUWKpbD92Pn9c iAmbQc6dAPGzOMJ5UUYp mIEgY2NbrN1pUnKpMFSf NBXvV2KbpVMnMVar C955GTbyJzQ1FWGxbmOz D5DrSHQflJyiHxF7v7F2 Sn9GTE89VI55ZS76zCRk n6M1hHI3J7LoWTIk cwvgifoabGR6XFEdBAKx sT52Ua6hcFahBv6nYBEh TEG6TWEwmQFsK5EacF2s HlNsABUsOSGjS0Ce rISlNIkoB925OCwyLmM3 DLZphoNxH8IjSSJvkXmx RvC4q7V2Ek0VAr58DK03 SL24yFZfq0N9sSK3 W0GzUUNplxmvlhqqrPL7 EQGhGIChtB54Wq1pnRoo Yu8sGJRpIIP9CCInfWSx H6EhdF9oGyItKTHy KABfG5MkjNGnWPrhE207 JOipTaQ8BXSczySbK8Nl FUHdhKzmRqJ3m4P9Xc1O QUktfea8W6UtQagp dHI+GG59OGWvEA22oSQl yVClh5jpkPq6WxDvMDUz KNT2qRxsROfek4DcHXIn L50isYUph9F3VTIe bGx (more content not included)... [facility] Coding Summaryon 08-15-2023 Coding Summary HTMLBase 64 TmhmyvloGZr6oFb+PGhl YWQ+IP0XSMBcK27sfTXl aU5gC2KVGZaKDnloNIIU JLkGMkXxraDqMO8bxAVl ZXJu IC8+DS6wBSAeJkzhuIFs h0W7iZR5A99olr1lUGbi nKH9TFKzQyWhstotk0dz gFe1GGmrDcvjYbMa OWUeiI03LEJ8kC77Fi50 fZBzsQTwn7lmvOj5RjSg TJZdTSY1uQybOLrue5Dn SWHsP03xeDNqz9G0 IGNvbGxhcHNlOyBlbXB0 hN2xXGvszzdal6kmogew Ahe6bk67vPFif0A1iBV4 T8DzimQ7ULCvsIDw LrlevQKSoD2eplvtn2xr pbjaFwLnLGEmKRd1UDk8 YVVenSpoZyFuLS19NJL6 XGGyjtCiC4FeYIGk xIivUcX1l1L0Am6QW9GS RpgqR7ACGTAHUXgcjNF+ VY53cy75R7DbEcxnRst1 ITRqUGC0lKK7oO4o ADBhHRwvx2F3wCW5P2Nk cgSqgy4lj2hvSUHkOLur W63neRPuj0L9YRPhsDV6 EIOdgEpaTgZmcH89 Oyc+RWXjiZuse8ZqHroj l6scs4jowTz6TihqFDYa wuBahRkyOTL2q9ScKa2x COQvhMU6oGF8nN9k FwIiMbX5KSlsR196HjDc jITcZuauP46tZ6IpfMH+ ZQNcGgg5IVTwrVbxQT2v O3OhXNFvdskvjHNl zBhdNR3pPYQkbykkOJEi lG5nVBGfD8e1AwYgCyR7 FKpoM2GsJIVwpupaJx19 lC1mHrGjMmD1JFvz W0ZjgdO3AMJjqIDtRXup NKM6Q11as7T9QMSaMGNx LCZ8pSL3xT4faOrlhozj bGVmdDsgdmVydGlj SMcvBIkwZ294ROUrvTws PkNvZGluZyBEYXRlOiAg MDQvMTEvMjAyNDwvdGQ+ YQUdUCY7rNrwMIWe aXIyACvjBd9roQnmsUez TX2aVRJrscvtHJCrsF2f INKflUOgoTunAC1lDYWe zagct827MgUnUHD6 KOLdnTEhJ6GwkF7lHiTa JCFtQSDdF9SdjWSdUUrp P146SUzyKuX2FDKsfuKi F9DaJKSkjHpkIbT8 n9W6Ys5Tf4MsvlhuG4Ee bWLjQeZgLvakAVu5O3Rf PjwvdHI+AN19PWSjLJ67 KTr1VYS7mVkrKBpa MTZaV6HvrH8dVfEiOECv ZGRkOyc+PHRhYmxlIHdp ZHRoPScxMDAlJyBzdHls IQ7sYn9eCKIwHKSb hAkgrHLdNjWlp0acTMGc XWuxNU2qrPmbL8XezHK9 BHGdk0a1Sd27I39hG2Rh dXA+TWTstHZ1lBE6 kT8sOjJyAzI4IXbuZ666 PhDliDEtUcecz3nol9tc nRj7PtQ9SOSmeoPmiEma UMZ3x4ZiNz73L31g IHdpZHRoPSIxNSUiIHZh jYlgup0zqT9pUp6+PGNv xDL0gXE0hR4sRlJoHrD8 TPmlX244VnBjdKYe Xujpl1erq0odxIs2RsZx KNXtzdHvyDiuRWF9s2Hp Xi17R9LgeOqqt7DsKaz6 ho51cVZvc5Q6vTF2 U7XlSYNyhybrmKLmmUfu PG5hNDNcisyuHILguY0u XRSuM3a2KqAsFhZ1MKcy C2ChzkL7CQSzmIDr NDOdpUZTlL8zizvej2cf bqfsPgTuRUPzAKh2SBj3 QIAskXklPmAxRBI8JsZ5 BJB8zOIrxJ6mbRgd slyzhL9aRbc+BPU9uLDo mGQQMJ4sIdtbaOD+PHRk NDW9vSkaIDrqLNAbhQ7v DCNqC2d7OrUuZnP3 HWeeT0AixpZ3ZOMfqKQb VHPfuSXVkV6utsifu9og clobNeLmLKJpSSs6LYd5 LWFsaWduOiBsZWZ0 HcX4ANN7aYGgyF1knDjh lkwemG9xYbm+QmlydGgg BYG1EUd5G9MgYch8FWWo gVwdLN4ccYKlIWfm Rx9xdNpdhChrYB1vZLJh jqkyv609YwBrk4ebEPWx hNNwTGluNAC5H43zj5O6 VHViSSFyCDN3uLY8 jV9wyStwafdziVEsvBuq vnLleIvuUVulVBerC481 NLYevYneTgNsSUf7F7Mb Qzu8CVUauPxwKL9n uUHoFIrsVz8kaKewuLyn IH7xMPOehjvsn800MzMs h2pcZLEmiWAhLXsdUOT1 G32tr6N4SBXgDPOr WMU0mJV2aB5ywPlyuuyx bGVmdDsgdmVydGljYWwt IVowT672CEKnjTzaNxNv lGz2X4QvGen6SNGg cThgTI3syVHdNHpkTr1e tTtgjUuqOL9eFPMemtjl h105PaXim3dwQHQaqAJd VNaxMFM5V23yn1O9 JUUaEYNsMVZ7lHJ2oN5c bGlnbjogbGVmdDsgdmVy dIvbVOzpVCovK637ZOGy cDsnPlBhdGllbnQg SCioTPv4G2RgBnxphMN+ AP58EJLwVW81gUSotWCb e7uojMk3RxSxAHKsHBG1 xZgfJJwjj3FbNRJq D18nyOTmz5V6CSZrxDkm sFQkHwWeyXJ4uP3kWBvt zonic9grfkvbXurxw6ux ua94fL86F43uYKzu ZHRoPSIzMCUiIHZhbGln vg7nhZ7jLc5+PGNvbCB3 qTO2bP0nPPHxXyZ3JOml A441JbWbmWVvOrae c3fph6vsqAz1UlU2WNVq djEddAhjGAW4q0BkVe85 N32qQIfdJBRcLDXyGDZh PJTmwWmikq3daN0s Ii8+AARwwLV7jCC2qT6n BnBcIbV9NFfgC665UtTh bCJcRpcgC30eL0OnqNX+ EIEpPpp4CYOwwMyc YB4hsINpOPnlAe3uINV5 VeZxUcYhPEgkD2NtXLFt inzfjbhdfHL7IGYjNWVf eA86Dr9ybCyoXFMk fLOFbM2dksizt2aokawq HiIdQUOkZYz1SCs7QBJg mMnfZdZkSOY1ClU0KSN3 iGWdrP3wwNjdsdze dT7bF7BaDHMfkqgoMy43 xX7sTcWeKqZ5ALubFue+ W1DCLidsVR4FT9vKTHul SzwvdGQ+PHRkIHN0 lUkyHWfwBSZkmM6oRTLd P9d9ZnQvOdQ6NBpiD0Tq YZJwiowdVq88hP3cDbDb PdB6BLzuD0VcrjN6 KFPkmSXzFOdvZDD2R69w n1J7ZIFkUUCwILC3vGW1 yE7wuTjhzeaujYHamCed dmVydGljYWwtYWxp I405GYReeAbsTkYqIlA6 ZjJ5RqS7G0XvAqh6FNVz vVltSG8klOJjABcmJg6c mHaxrWgwOA8yODQt rpybAIXigW2zCHUreLMm pVnwSP7mNLCavofgv522 EnZyIWL1XFMkjRBpL4Bp lZ6jWxJuZRYgGHQb Q2UmgCPvVDibB690HUuw SmL9VXMyniDrC0SkAYPz jVzlNuH0u7F4Hk86XHDD ZWFyczwvdGQ+PHRk FZR4mNjrQUcfWCMfrE3o GAPaN1c9BoItCbQ0QPez L7BdIDHxopgwGi90iZ5j RaNbNuN1RTptU8Yl xmM8PXLseJWvAIzxDIG7 I57pv7I3MEYvYLFuIHI8 cKG9tQ6crMhkgclnoETg dDsgdmVydGljYWwt ZDyvY109DASeuEwdXx8V KMV5R5DdDwl2NKBnkMmz RP6llTYgNNvfJw0fcIcu yVtkWC5rPPPdqstt QMQjiE0cEANjmQQcsVdm JD6bMMCsgwqhb629WuQv TAN6VEUngGTkV9WveQ0l WoNtMWBgBZVeU6Do mOHeHQhlA351JWdwHiG9 QHUxlsKeQ2GzOORkoHtq ArI6i1O2Rx9SAUmzqVZ+ ZX54fd25P4UbSqpl Usq7LXRcEAV2xEZ8tG5k UQIhNQyrq8M0eIF4O9Yo qlQtza1ip2xoHBWxGIvn L90heMRlh4U8ZEJm xPL1DZShiFsyDqJeyG34 Oyc+TPArlJvgd4KuBday s1zeb4qbkBc9XoIpQFVc znLdbEiiOZL7d6Mu Od98D20vLXtlGUCxZNJf HRCqIWXqqVlvyj2olO5m Ii8+VQTtoEK1sFP5gV2q SgWtVsV9OCilO249 BcYptXOmNnipr3jtv0of kAw0BiRnMVNzviTlzMxn HLR1b2QqNz46M1YkoHfq m4XiXwo2ue18aZVr l4L3lRP6D4UtJZIbjubg jMOraTnkUK8wCWNyjirr IVYhdI0iYFNkR8f4EbWo EcQ4LQfcR0SivoA5 GCJnsPJpLRNkhQXIiV1x xocbp6yozapzWdSyUEDx MTc6QVm0NBXroLljJpOb UQL7RbU5OOW8aBSn pT5tpYqvwtywaX5zGvk+ KKf3t3qxxIRzQJ0apKH4 JO77TW36rQVmb0A0iTT3 H2BbFRYvyjdgbykc iRT0DWSiWLKltS44Zx0q aTxcEw1jHMBfDDY7AHEf aIIkZ7PrqA8sMmBsIIMh QBCqF6UseVXyUGkb I434JEdmEsZ4KZTdguAq A0VeRPJmhAswNhN2k3B3 Nb1HUX44XK93KX96gWUj l2E5kHB6B0VzEZAh vtvrhixwoJA7HNXeBUCy mQ85Xa4nuBquIy1iBJMw PSU2XOLsiPCxJ8KpdJ3h RtAtOXWrIEZdJ0Cr tCEpOFecC120GCpbJuR8 SCKkfoHhJ1JsDUIkbNyp AuM6f1G0Fu3FRa64SJ51 GJ86uIDyg5E1sOF4 G4QtXTWxzryyusioiSE5 QDLkVCUheC84Dq6zeQrk Dm8kAYMbOEC2DKBvuLDc R9KwrX5hXbShEZAp DIIsC9YmdEEgMEdiF473 VUlrJaE4RNKlzzBtI5Xy YISumMtxBxC5y9S6Yj9L SXsqmct7W4RsXckz dHI+ZO42COSqLZ41oGLs sRZkn6vpbHg9QyLuBSCa IIS1nIpiADfdu1WuGDYt W50pjGVrf2E8SGEz bGx (more content not included)... [facility] Coding Summary HTMLBase 64 RiukqwnnKWe5yFp+PGhl YWQ+BO7GUQYuR36vpIDh wC2uD2IFPRuPXrohKYXX CLjTKfAahdTfEV5ugTMj ZXJu IC8+ZP1tMTNdSavufVTo s1N3dHT2R96ape5dFCmu rOA3WFLaJnVdlgkkd0ec uOy5JSzfQpspHuJx EZYsaO21KPO1oG09Wr74 pYTszQGbw0dvvAx3KvPb KKRtRKB1hHuoTRapx4Vt KCHaD41skTLad3A3 IGNvbGxhcHNlOyBlbXB0 xX0dNXfxhjzhy4mdaqum Hax9xn98rCLlj0P9kRW8 Y8RrvwE1SHPdrPXw IducsNYDwZ4zqojuw0hs ofozJiBbMQHsHQw4UFn0 OVJryAwzBqYiBN00TNW7 ZSUwzhPoQ7MsOXOb fFubKoG6v0J3Zo9RU7HH PvryT5NHXUYLMXjoxYT+ CO54mm09C0YbXoxgHix9 QDGwYUC4xRG6yD7i SVPlMFbrj8T4zPT2Y2Qu ehYyif1aj3fmWYMtEGeb D81srFMdr6W3VEHpmLQ9 EDVqdDfhXbEqwE47 Oyc+CZIikPghs6AeXsrb y6glo4ynzAn4FfhnHQIr zlWsmJgbCFP5n0CwWs4m ULFyiLS6pLS3uE9o TzJqSnB3EHbtB922UpMk iVLlRiuzE32mN9WaaZY+ PQXpWtc2NRIxiYblXV4f A1QqOLUwzybzyWSu oPojOD7qCYHdfvwwZYVa kK1jYSGgX1m7RpAeSpW2 ZOvkR4BbYDKzwamlRg15 xB9rPdCcLnG7FWyi Y0UieeD0DMPvbUGeQVqt URA1W52az9D0MMVrDCOv RCD2nWA0aP9npCtdysru bGVmdDsgdmVydGlj XJpzDNtvY507KBDywKcf PkNvZGluZyBEYXRlOiAg MDQvMTEvMjAyNDwvdGQ+ DBRoAOY2qHzhONXo oQAoFJzoBc7jgTxgiRqs MB5qEEPrqiklXCMhyD2x ZMXnrQZjoGhxSP5vWTLu rjmli211DwQvJBG9 ICHrhAUqA8HlwE6xScMu CQItJEBlD9HdqQSkZKxx J051KZmxNyF8ZMNyadOb M0GiDJFxxXprAhS0 l8B2Nk1Qk1AbbpjfK4Nr mNFeYcRkBbjoALp7S6Ad PjwvdHI+TY39KYMaLP25 IHb1FVM9dQcvKRmm MUHhL4SeqJ6wVcFxSPPf ZGRkOyc+PHRhYmxlIHdp ZHRoPScxMDAlJyBzdHls GI0hKe6yTVYzYWAs rSwpjYZvXlYkh1nvDABp ZVjcLD5ynGvzQ4VaoYU3 ZWAzc4m1Zl45N05pI0Oh dXA+WHNpyJC3hQI1 fY2nOxCsOqB8SGmnM838 NgAoxXFlPemlj6hiu4vx nMl8EsW1GAVtofGfoPdw GKO4x9HmMn82O18r IHdpZHRoPSIxNSUiIHZh kGtktr7tdO7nKc5+PGNv hXF4pVE5hV4nLbKuMoM7 XBbfI332KaBmgNPm Voagb0xnj2cqaRp6AtPz LCAvygYtaAyoKNG4q7Tk Ig45F9RxyRkfs2TaTen2 tj15eMTgg6O5aYD7 O0RqLSTcrxmbbTVmqQvq MX2tLFVjeerkTSLtdZ7k ASWcA8k4WvKhZjD1VDxo F6EnupP7ANVpeKPu MPLrsTZOfG7jifntk4le gmwvPuOiMOPsZCu9PJb6 SUQlzYjqZqNdZCC1JuV2 BYC0oSKfeG4pxWtt ilowrM2xIow+JBJ6rWDt bGFQHT0bAaxyqAH+PHRk ESC5vAwwZPldRLBaiP3f XJIjY9i6GiUuHqY7 OAovV8FwouQ2QORqlGGs IHBzsIVQpT7roidtt5zs iogfBiRfENScCIf2WQh0 LWFsaWduOiBsZWZ0 KxN0KHS2aUZduV9iaKwa ankdrB3hWwd+QmlydGgg FNF2NCg6D4CdEoj1MNUk rTrhDY8atQKrJVrt Gu0geYmnjYzzPP6gHUKm oeyir849ZlEoc2htONVy iEBeCHbfDTI3C98ru4J2 KHKuBSTgJCZ9rBE6 lC7rdNtpphflsVHdmQzl kdWvnXbdTOxkPFodJ087 NBPmsYywYzRxUSv0L5Ev Yyu1GWWthDwpXY9f kLVmZSsvXb6cmDyvmNlr OB4oMBWkybwwd460AoWh a4qeQDInnQLsPMqgLNH5 W93ce1J1JJRwXCQi ODZ8mYX9gX4mgKjyxdjp bGVmdDsgdmVydGljYWwt RBirJ662ZKDncYqfDqXs bJh8K9CyXtw5BADj sIzaEX2zsAEyTCxmUp2t uSjwaYnqMW0xABHkhbmh l938TbDsw9pvTGDszCEu NFczPLL0X27ic1E1 RARyUGLuBHT6gGB9mM6v bGlnbjogbGVmdDsgdmVy yOpaFXzpDDipE516AGOz cDsnPlBhdGllbnQg JAapOUm1S6FhXfgarOQ+ VJ59MXDdJO51mQJsbAPw i9vpvCr2EfRhDQOkOWW4 hBrbKZdsx5PtUYIg R30jkUTam8B0LEXebNfm dNGjPrUyfIC3oT7xTGcw ysaks0retsiuVvejr5if bn84vQ03N47aORai ZHRoPSIzMCUiIHZhbGln tk3gaG2sQe3+PGNvbCB3 iBH3xP8vJYErQmC9IUxu M307FzAruMQjIhcr s1qlp6lgwDa0CxV5SDJy pnKnoBznTRY0i5CdIt08 U77cUPhrHEIoYZAjPMIe TWUqkNuwxe0tgP7s Ii8+PWWkwXN1xSN6lI4j EvBjAxM3NKlqN072JpZl iEXsZvhiQ32wE9BebPU+ TABwWue4VKQjkDwa SQ2phMOlWUeiTn0iDUT1 KyAvYcQpEHmqH4DlOWEc wwolhhhwlQR3YIBbUQXy zV32Le4ihTbkZRDq iDTNlK7dsrumk3aimnci AqIqRVIbLHl8EFe3XQVu oOngZcYxAUP8BiY5MJA4 fGDwjA1qbGttkqow jJ3gN7HjEEErmdmxYm40 nQ4aRwByIqY8JUweTme+ K0PLWumqZK0EH0wBBPoz SzwvdGQ+PHRkIHN0 wZokMRbeXLUnlB3tDBCk L2o5NxUyNeO6TBzvU6Qi KNSvkphuIv81dR4rVvFu QaO2VGreI1GufzX9 XCIqbNQnJQhsHSF1K73a l4G2PTXzUBQmYVA5aXP2 eS1thVpkneeghYGhfFam dmVydGljYWwtYWxp L200LLMyjHukWgDaPvI8 NcM8NrB2Z3DlOau7ODSc eKsgJX1jeFXuBVssZq6q eRksfIxwDT8uRARz wrdcRLHqkB6uRIVobOBb gBwaGM0hOGUsiakyl106 QjQfPGR4OBCpkPIcA0Nj kQ7qIcDmEUMoMCYi K2XzaRGqGAuzV309VQwu OuM9XOFshmSzT7OkQKKs aOxcCfX0k6O6As58ZOFN ZWFyczwvdGQ+PHRk JVF7oZvzGMcdHAEabZ5d UIQcI1u9ZhCnHpX5ULse A4AxVAAlripyHz96cD0p NtUnJxM5PUwcF8Ei vfF8JMEqrKEdBIfzSCY5 U07gp3E6KIIqJVNoVNY2 cBY2nI1knMfyeykyqLWv dDsgdmVydGljYWwt YVdgG204KCHctWriKm6Z KSD1E3RvOwo0XHOwcEzj WP9nhZUvCJbpGb2orYsa hGauYV1pQTEioecm TLAysZ7bRLSvxMEhbWps LW1bJIZnjwjcp642QuTk VHE0ZJVokZLaU8RquM3o UsYzQDDhFCFuM9Vf nGUqRWekJ566QGagJrH3 VIIbwaZqA1BfXGOiwBoi ImU6l7H9Cf1DEMnzaBF+ OV34aq80C9GtFrvn Asa8ERIfBIM2lBS8vQ3f TSQwGHmqa0N1iNU1U4Ye xkMgzd4ov2mxRAQgKLwz M88vsEDtj2Q8HDRw jTD3NKKccRxmEeXymI92 Oyc+IOEwsRdvu2ZwVpod d2blg2dguSh2ZnKbLIWp goHneAbyVYV7u7Gz Jq32H48bYGmfUQRqZIOi KXIlLSFqsMxdqn8mnZ4c Ii8+NWCsqPQ5kJH1pI2i SbWwToK7RSmrC514 ZyTorRZvLxyrf4rbo0cj zDx2DsVyTZOputZvlTav ITD5t6PuTb03U9SsdAam a7SrVdv4qq80wUTz o3M4eYY4S1ZlAEYaypup wVJdbDdkMK1vQRHczcvz JXLdtC6vTFBhF6d6CcGa HkM8NUlxA7QzkyC3 WATfbJJpPFKrhCNRtO9k gejqd5srqqyyNoLrLYLy PMb1JAo3LPNxqPapPdAe SLW6VpC3CMX9cCVc mA5qxNppchglvK0rPlx+ ERp2c8gfuMXvHO6vcCF2 AH52OA07bJDwi8W0hXX6 O5RgBENaogptuiqq hEX9QDAbXNJjyS87Ox2q bQmvKp0xNPYdNAO2AQCz gTVvO7PpeY2yNeDcACFr KVUcI1KrnOJeWTsm O365GUfmWvR0VZRaieEb Y1OtLLIfrLfjImC6l7J7 Fg4QLZ86AJ83MF28pDWm q4C5eUF1N3DrEXIv jedvmzkdsOQ6XNYmTDKj uK53Na1puYjfQf6oYVEn MII9HWRmxKBnO8SgtH4n DeTiWGQyKSTjS5Du tOSdBAynG206FEanCkM9 GNFgdtQaU8LlSIXghFxj BwK4l2P5Nm5YJj79XB75 RP04yPCzc2M8vQJ9 X2MkVFKdqxuwqeepcHP9 KWPqPHImcF99Yb0tbVsm Rc0zMMRjPEN9CKPfgUSs D0UgbK3zSzXiKOZf NYQoR0SuoDXhNWxwO588 YPccKiW4GDVbsfFpH3Wq EOHkcMugUuI7d0I9Ac2O PDpzhey8T7UoQtfw dHI+AW39CZLmTR89pCQt aUCrj5fpuQj4UmQqUTCp GGT5cDvmTXgpk7EgWISb Q70cqYUda8C8JRHz bGx (more content not included)... [facility] Wound Care Noteon 08-12-2023 Wound Care Note [id number]# [facility] W[facility] Care Note [id number]#[facility]. [facility]30[facility] Coding Summary HTMLBase 64 FspnquaoYRu4fKp+PGhl YWQ+ME9VQAFcX01tgRFo fB1aX0BCKRmDEzhjBXNM ZPjEZqDdekIxRD5mlDIx ZXJu IC8+TG4vXLIzOxenhMWc b4M2cIM9M81ipo0wWEah mVL9GGPnKoQockiyp1qz fBd8QRswOoltSfUs KARgdE89PTX8vG87Jm35 bMIzpZSve1jkoSk2XgKt RQFhTXD7gBahHHhil0Ik OAQcV01wpFGkv8R7 IGNvbGxhcHNlOyBlbXB0 mE4jNGwbvltth4rtjnop Npa0qv47nQDqa5M8qXS2 D6KhssW9CMWqvONf KkyfsNXFdH5cruhsh2eq cbfdBcLhYZOxVCg7EJo7 YDGdzRqeSkKyXW21DPA0 RCJqkqGxL0QmQPLo lQclMbC6s2G6Gf8TU0VU JdpiC5AFUSDMWIvgqNU+ SH49vp29L3IcTtsiWde8 AEIpJST3eMB1qC5q BANiTWqda2P5vUZ8O8Fo vpLdsy2pq7enVCPuFCdw M61mdIOho5Y3FOCowKV7 ZFJcvMglZvCfwW49 Oyc+LMTrsYowa3BcOomj o7cxa2kltPt7XqhiORCg xiDcgYckXLU3n4WcNa7a CIVwePG5lBC2oO6i FcYcPhP8PVcxR973JbOj iDPyGxykZ02kN9SfmVU+ BRHuTak4JJKodHjxVQ2w X4RdIAZyqvoguYFw tNonSW9nQFGzpijoHTFs mD8nZHSdB9o8XpEtNeI3 FLhdK7DoXGWzhwitZx07 iC1bFoKeRpR2DCts L9HmewC2UMTfuIKoRZpq CCZ7W91ur3Q2NEWmJOQi DLS8pKD1sB7lpXakyqpx bGVmdDsgdmVydGlj XTquCWcnQ570UDNdmBgp PkNvZGluZyBEYXRlOiAg MDMvMjYvMjAyNDwvdGQ+ FVWsIGT6iJirJZMg tTZlEKnkQh5hlSwqqZtq WZ2dBQPknhgiQKZpkT1g OKMciPCrlAgzLE9jRQOn cavmi545ByFyKDD0 BDXufREsJ7QyjN0gNcEd MFHfIAFnD0SznPMaHVlj R860UJccVeT2LPUbhkYf J3KtRPLyfAutZkQ4 d3Q2Sm6At3SqeghkI6Hz qHRjVkPyBtvdELc7R1Nl PjwvdHI+BN86FWNfAK14 ZOp6STE9sSgqWOhm RIVbZ7ZulK4zQbHaPBRm ZGRkOyc+PHRhYmxlIHdp ZHRoPScxMDAlJyBzdHls PD1bEa8rXZIyZNIm uQnfrAVsLmJid9wrGQNz NIbjCL4laVfmI3AbmJX9 IACfb3m7Ox38U29kT6Qw dXA+ROKrbLY1nGA2 kW8pJrFlXfZ2HUkeS111 QtZnrNTzEtnrc8xrr1lu lPb7KaL4HFKkjoMkhEjq VNE9s0PzQv11L82j IHdpZHRoPSIxNSUiIHZh vUwzbl6ylK7vVx0+PGNv gGT5nPC4cQ0zXuQsAkS9 OTerK698DoBhbAFt Nljvr1wiq8ezcUo3WgGq AXRrqySieActRUV6n1Id Ec50H2HylLdfr6PaYmq6 ln74iWHjp3D3vHJ1 V7HhFWGmanzlrJIfrIwh GT7nGTUogtakHTXraF2i UBEdB2s7TnPrJtD2IAbe S5WjetE5HGEisUTb SRHflHZHfN2ogefrf7ao hudiZlDmYFFpJHb3HNq7 AQJzvEetAfZkWDS7XeB4 QQB6iEEjhW1izLiz cdkfqW0oPve+WPN5yZWy uTFEJY3sSnzteUF+PHRk XGG5zQteOHnmJZLhhD1d GKIlT7f1FpRxBuI2 JBeaB4XcezR0QWMwjFKh MPNvwUGFlF4pglzyc9xo fnkqVfLtAAMgNJf1BGv6 LWFsaWduOiBsZWZ0 YpU8CYH6mLCwgJ0pqZfi rgqrpB7xVax+QmlydGgg RVK3NAj5C4PwJnx8OGZc bXkxXT5adITfOBmr If0rlQzbfUdjQU3bABFk znird778UrZus0xxNHAr vTNdKYdfCXE9A22bj1Y3 PTWgOHKzBMA0eWD9 aG7flDodfdfazXLykHym gqQnxMjuMAtsOTrbF743 QVJvqAbdEtXgATk9H0Ty Oyp9QOKxrMboKZ2s bCJlUIunPg4gpNswcPzl PI6eARNmuhfcz770UeLz t5rxUPQgcUXmMQaxCVY8 K89oc6P9JBZcNROp VJC8jJT4iJ7ytKzkxoua bGVmdDsgdmVydGljYWwt UXfbW692HUVboSljSjRr dSk9K9WrIah9PEYk sKczDQ2wtGZiTNmiCx8p uPesmLyjCL7zCDYpxedz j185BcQco7fyKMBusGZo AWcaITK0M58yi4A5 WBAnNGFrRTQ4eKG9kE9q bGlnbjogbGVmdDsgdmVy eSkcTYgaYPccL379PKGd cDsnPlBhdGllbnQg GBqfSFs6W0IeNtgruTC+ HS59GGIcRV09wFDqgVVp l4cmkDc8VoHpMDGhGMO0 fPbzXXlgc2KtUNOl J04bjOHzq6L9EUHboKpi kDLgZdTwmHH5eV8oZEmw huefz7tylocdIrcks3xm wp03iC65S24vGXwr ZHRoPSIzMCUiIHZhbGln bk7inJ0oKb5+PGNvbCB3 wTP3bN7jNMEoGkB1WUzy O573DjAhbCBiPmdf s7lkg8gaqWf6YyY4TQOv btVsmZehQGS9t9QkQy00 E69nHQktVBMgYMGkZAAf LEYjvZqiyx6evC3x Ii8+SSKlwPY3rYG2oO6e IuIlEvO8JEnvI045PlBo aMDmCfdwX79kW5EloBV+ YEDvEeg4QVXraWfq QM2ljAJqWOgtQg0hPAT4 ZsFtTjGsLMwfA6FmOGGn gfadfwruyHQ5OOAzHRBk uU66Io5yuHgnHMPk sQZNsW8lrqynr7ysoypf IrAjMSBcXUn2IMa6YFLj dQjyOyTxOXS6UoX6DVR4 fIDbhX2gzKdjasql cS9lT9AbQFUxbtmlQb56 bC8zCaBcJnS6IEhdLuf+ S3YECoomLC2ZX4wDEUng SzwvdGQ+PHRkIHN0 vMycNPlnNIPhyX0uFQGa C5x9LdXmTiZ0IQaxJ0Nm RKLsgilpIp91gS5mTbRi JwP5LWswI6PkgkN0 BSVgfVElYZcmXBG9K01t l2N1MWOgXOTmBYC2yHZ4 zW4klSckidumgKVnyYex dmVydGljYWwtYWxp P641RIKvzYiuWrGbImI0 ClU6OzO1C3WgDps8TATc tNntNV1ouKVaFAfgHr6y hOtddYrnTU7dKROc uhxgICGtzP1eYUCrqZUg yBqaVQ7pIRWxhslss035 QtNwDVT3CQFgpXKsS2Uu nY0fPxQjCJOyXYPm N2ByjHJrILffI524DZhb TnH0HBConaAlU7YkYMCw vZcjEoM8z0T9Ju57KOMO ZWFyczwvdGQ+PHRk TTR6kTdkFQcgEHItlA8q GLTrF9i9AfOoAfS3BBht J8UlHUAehizbFy48oG5o EfLjAgS2WCzyJ8Gd pqQ6HAEffGLlURmyFPZ5 F92xg9N3MMGaFXFwNON2 kQY2yM5qmInrlojkxZDw dDsgdmVydGljYWwt LNypI225IQXcyBkdZr1N FII7O6VwRde2AMDqfGnz AB0jaYEkGPfpZo1naPsr vGrhEC8oTOTactxd OAIcdE8pZMRyfLGwiNue WT9iJEIpmllam364GoBg DPS9TNAjsLKgM5FfaC9u CuOpUNAkEECjC2Nm dFVcEPraX537LVteSjD1 OYSgxnFgV1PlBHBkbCsi RxU9i8U9Xt5PGIndfXC+ XA61it13U2KhBeuh Lyv5UPMrSMR2rPE0mI8q GWBzBRalz9R2rHZ2N0Xw yfQttf1th3pgMRAbQDlk I53dcDTkw1V2PYLw hSC6TIThlIdgUuJnwB61 Oyc+GNVelGkil4XjThoa y3qyi0xbgQs1JgYbZBJh nbBejIslFEH1n7Kf Hr90G91pAYtaYPOpSJKf RBBeBXMenOawqb9mbE1b Ii8+PSGxdPY4oWD6sN8v WzHrEjD9AKjcN807 KdWjlJRnNkrll7ayd1gd bKa5DeNiPQIlviIhkGam IRG4v2KcYb35E6RzxCmv j1VdCtz4fj60pKTg s8H1jXH1I8HsNHUgbsta tGUtuHqnQR0aMUAuekcg MBSaoQ0lCDOzB5b2NuCb PmG0DLowD9CrfjY1 ELPzbAVeNWDfpSEJvI1h oxmhu1xfokmtOxAdOZQr TJo4QFa4SIWhjOosFzWr GCL8KzY2GKX5fVGs oM3oxHzvkjibeV3aAyz+ RTz4a1teeJTuLZ6zyJS4 WU30IV46mPVri5B9vRO7 A8VeSOOladtqhegn gMW7AOAcEGAzuK40Da0p uJlqQr8rZITxLBI4BBPb qABoQ8JneO9hVyVdIHHa LBZiV7LglSSmPOvl W442POziDqG7HZHwpcTa Q9WhPDTbzTbbQwH6z4N8 Hx1SDR12SP28FL97rHSw i9L8qHL5S4ErJTAh kctykmwzdYN5AUMhTKKh qE68Ll7jmYiuPf8bHXKq LHP3HVKmmRXdR8SgyA7p YqLgOPGlMIIeL1Et iFSnUPpgO800JDmcEsM7 UYCwxjKbP2KcXLBcrMud GdP4f3V2Vd4MBo04JX24 YM64kKZiu5G1vJN6 Z4SsAGJcbwefqefahWO6 APGjWYMyaU88Eh3ypWoi Lq7iBILaEKC0YOOfxRJb X9XkoM0yXbQtCBUh MDXpS0UpuAXcRMyjU833 CJgzTxE4QSDgaiFxV7La TPJwsZbyJtL5j6L8Pu5H ELzlkgb2H9BvVpcg dHI+BK20NIEaLL71pDNz oIAvd8ubgDr7HtLaLRIs AKO6jPcpVVmcj0HcDDZu O34ynIPgt3D6JVKj bGx (more content not included)... [facility] Coding Summary HTMLBase 64 PdfovbejLBy4kBq+PGhl YWQ+BP1BDLMfZ51utDNp bQ6rI4GYPZuOFzrbMVVV UUzSLlHadvOfVR5wiAAr ZXJu IC8+RM8dSPItBojhsPQd m2N0fTV9O11leq5dSTdm yTY6ZFGnNwHbpabvz0ok qBw7KBumBzbuIzEb HKXmeK31UHP4yW87Go17 bXAwyPIkw0rykVk0SnIg WTFjBIB8bKjrIAbrn8Ou JMNrJ59fsCMsn7C0 IGNvbGxhcHNlOyBlbXB0 kA8mHNilatyen7ukilob Psd8yw02bIApx2D7nSH5 Y8EjsjY3VYVxaNId KunvrDRQvD3rsjrga8tw zaubTbLuLQWxEDd2NLr8 VVNqaVrkXqBcIC83MTV3 DNHlngXoO8YyYZBe sJhvCpM6t6E8Vp2RZ8UH ZynlH9JFYAQWKQidvTC+ TA40lq07B6DiBnqlLnh7 WUItQBS3rUA3hN5m FLUdCGlib6D9gKG0U6Qc apFxxe7rn9lvGKZeCWst W78esXEyu7H7QDNhdOM7 RBOyuBtzOvQzfI87 Oyc+JZJaePosk3PzOktn h3zif0dccZb2JwjeKQCq ytRqcMvgVJO8u0EiXk9u IJBtpLU2iDA5sX7x LvZyXkL9PIpvM068ElXg jWHfUsgvM54sT9EzyQA+ SQXbQhj6BWIdgUoyGQ5j M8AsFLQaalpxpFOn iLybAL0bQQIoekvgZQNe jF2sNIUzB6h1DeKlBpC4 RScuX7GkCXNgrwceKs02 uK8zAiHiJdR0MHxw R4PzvdP9LZKnhVTtJXcu ZTQ1D40rh9X7FSDsDCWg JSO4cBG9yA2tpSdtcfkq bGVmdDsgdmVydGlj ADxoEPgeR439DLTuuEjp PkNvZGluZyBEYXRlOiAg MDMvMjYvMjAyNDwvdGQ+ GLTtNEG5bQisOFOc uUXdAJprWz8gmEcveKtu OQ7jGSMkkwazSXNirZ2e UDXfnGQpnKrtVO3eOXCo zgqmy185BpDyRJY0 XEDjcFGjA1QxrE4qOdJo KGGzHHTlH5MksLYyKVce H827XCzcNjV4KFQrraDs B0GyWLNznNluWdE5 y7Q6Ur4Vl0UinwclR8Ce wANiDhVtSpynXQz5W9Sb PjwvdHI+AL48HRUsCJ93 KYk6DZH4lPkrZWif AUXdX1IgvD3dNuGrQSVy ZGRkOyc+PHRhYmxlIHdp ZHRoPScxMDAlJyBzdHls JD4qBe7pIZCkQLHs wEulgKPqJaAsl7ebKYBe RIafDS6egOyhN0FokTB4 MAMfl3a3Fc94G36uT1Ui dXA+GPJquYC5eDO8 fU0hPbEwCkT9WZerT740 YmOooZPkRjivo5pwi9eh lTw0ZzP7FIFoylFzfVzg TLB1r9TsMl32Z29a IHdpZHRoPSIxNSUiIHZh nIipjo9afO6aQo9+PGNv hWF4mUC5jR5gQtPjJbS3 GQsrP431RwOgcYNi Fxpft3ufe3ivnJr3IkBe SZSujgEilZixEOM7x0Ao Bk23P9EfpUefc9DnCfd7 hr93sZIvm4U7dFF8 P3DhNBFbbtzeeIYfcSiv QE2aKIBfabkpZWRgcZ5p XUXkT9k6JzDcHsV9PHuj U4NzeqU8XALriNNw UYKzvBKPnS7mvabja3yz debdFgVbLJMoELs5KPj1 ZZSmhTjwUuDxRUH2GxS5 UED2xWWxoQ0xdEmc jgcueY8mSre+EPC3mSEl fDNGJD6kCtnbyKX+PHRk VED1cPprMRbtYAMcbP6g PAAkB8x0JvCjKzM9 PJmbF8YkqmV0FZKseGBh CHZiwOXIrV4ipjkpw8ye xtmxJoWeOVDqQKp9ZCe8 LWFsaWduOiBsZWZ0 PoV0SOY1vWVbyS1tuQzu chhrqH2cNva+QmlydGgg IJZ6TQr4V1ZbCab3HOLf bWptHR5zeRHgHSvz Ho0xuYyjrShsSJ2bIJIq kxtsh666SvBmb4owEITa jJPcPNdnUZK2N73ec1Z3 MEMzBSZxPQU8cPL8 kJ9hsAqxpgipmRLdvZfr cuXcfYbhRPdxWBcqY182 VRBzwSwzHuBtDTb8T6Fo Nbo4EEBjhJqwVX2h wQFlZQzlTk6ibYnjeQns BG6gNUSfnjhbx475NtFh w6epYLPgpCOpTDlmOMJ9 D46xn9B5KWMzTGWk XGJ0cSH7wV7nhFavrayu bGVmdDsgdmVydGljYWwt PEokW806DYMrgWaiRwJm cPe5X8VlLwq4LNOt aQwdCU3cyUYeNSvjRy7r jIlkjAxjFO3dGVVvfumm y566WaLki4mzZLFxcFQp HUjiVEI0T97ya8W2 OOToCJKfELN2nEF5vZ1r bGlnbjogbGVmdDsgdmVy mVrbHVymLLzgZ430LOWz cDsnPlBhdGllbnQg UVtxBGr1U0QsPxuusXL+ GZ34ZSKaJD33sZUphDRq v8kanRq1BfDkYCPlWFP5 cFhyRRbnc9MpSFQm J95czCLid4L6QJPyzWzq dTFoJbYseZF6yN0xAJjw svxht8ahacnoHfnvx7dg jg09vV63I07dCWax ZHRoPSIzMCUiIHZhbGln fo9kbT0tFh9+PGNvbCB3 fXB7hU3tVXRcAjC8TSrf M536WyFfqAPaKgjg p9mgf0eeaJn4BhW6TMCf qhXkiKqgGGR8v5TjEh20 T52hYPyvXITxSTQmZOAm MOOrrUyptc7ofA5k Ii8+PPDseHS3kBB3nG7q PeFpOgV3IUmiL122QlYt vPYfAarpV76gL1TmhOA+ UANsHqy2DWEncCeu VS1opTGjHBpjCs7qZRC8 LhGvTtQfGSkvQ5WoAWAn ylrhnaberBK9LIRfAUEj zJ08Qo8jgUcqNAKv rWTYxZ4jxwhgc0hslzng VxPiRLYyIIt4TCt2JRYv qXuoJmMyKCD1GxX0WWH8 uWNzxQ1bcRthjkqs eY0sC7GxBDTfkyloRm15 yI8aZeSyEiY5BZqnOgc+ U5MPCmhbZJ1CN5rCECbi SzwvdGQ+PHRkIHN0 cRydAZheZQFfnV8oYNVp U1x1QyUqBoY3CIjkB8Xl IAZxxsccWi19jG4oRbYq NnF8LLdrN2HebmF3 LLAueRCiXRbjXGP7O90s o4H1SBYhEEUaCPU5dFI3 mU2irPepcnaukYJqjPco dmVydGljYWwtYWxp V415EWImlDdfWfZuLxN5 JgX7VgW4Y4UeMwr3JULy lGssPC5eaGVpYJnfRh5f zKnqhLewKP4xCBIw pfxmUEIpmE0hXWFwpWHc hCrrDB2gKHGgnfedc942 ZeOkAAY9HTRuoHArO5Pg kY2pOvOcLAXcWNZd K2VvnRGhFXsvN396IMgr JkH4RYXbkcNbR2QrVPHp vByjEbK2m0I6Nm43WTUS ZWFyczwvdGQ+PHRk WQW1eAtpXRkyYOYxmT2u SAPsT2j6FeYuZkZ8JHig T7HcKWKcryneFr29pY0j RmXfOqE6XIlbP3Zh kjD7GZBekLEeINzfOWJ9 A90xp5C9GCDzDDNbPRV3 nSI1pS3znOrbixhhbORw dDsgdmVydGljYWwt NNqxH668WFVivPliAg0K OKN2Q7CfShm9HBCvwUnq HA7szBLsRLjnHf8haCbf dRggEU6tRGRorfse OHCsmF3qTKRmtOUgrIfm PQ2dXVZtgntcx697XnFg TLG0MTWfmPXwT9MzlY1k DrBvYBZiVIGuJ3Mh gYXeVYdjD000YVsaCdC7 GOGtikSnB2EeIIOjwJqo JlE8t3E4Nz6LGJwnxTS+ CC07qj44P6FiNwhd Fqw2HAJvIAU0nPI9lG0x NVLuPCqhs1M6cAB9Y7Gz frNpsj2jf5uhQJVzGQix B13lmEZcb8T4VGEv sOA9OUWrzFasZiIbdL64 Oyc+MMKnqRgem8YwJfjp p3xdx7skoDc7DhRyBGCg ajBwkVpeUZB1h1By Iw69M13jJCpiVVFeGVXs FQQyRAEdvLpwnv9frY7f Ii8+GSRihZA8hRO3lS4u BfPyHuC8HXvpA271 PfVjpZUwPkzls4hrk6go pFi0PgHyZFYxhvEzyEmn PMJ2l9WuDy18N3KckCwr q2TiPmz9um96nZSg u0B8gWU7S0HtZPYrfsia vGGjgAleYI2xVTEladba GBDpdL8mIBMxR5f7FoYt GqQ9MUppN7BscmB6 EUJwtCVfDKKrfRGLgU4c tvifs7xvchyiWkMgJBCa JWo4YWi8DFDsoScaLyIj OYJ8LbX5EMI7iTZt xK0lrUvglftclW1zScv+ KMf0r6nxeWTxOO4eaRE9 HF10KU20yPKaq2J2lYG4 F5EhAHXtrrpxrthi fZX6OXPrDZErfS54Qv7n mPvvVe4pFADpCTL7RSMh qNWpR2WnbF7wUpXtTFBz YISiU3TcmRBbGLcl B229FJsuSsS2SDCkbaOd F2CtNMXnyStjRhL5l4F2 Nt7DYP00RT46XH97cPMt o7G9bAA1C8QcILLj nwonarfzbZD4VMQwENUo hZ04Zq5kxDcbWw0uDISz TYY1EZGzxISxJ8PceR5v RcEmBUVrQLIhA4Ti fBSoGVdpN831KOsfGmP3 EEVxnpTcX0PdYFHlxRcu PrL6f6T4Ne2JMl41QB23 BE59nOHyb5S8mEI5 G4IiRMSzpfiymwcnrYR9 IJEsWOAopV09Ma4jfRwi Zb9iMJHlJNM2RIQatIIt G9NkbV4mGyLuAUGk QAFrL0YyuXQwGHdqQ811 KLxuHdY2EJZcrfYaA4Ys NVKtoTdiEmT9j5V2Nk9K QSdtbxb6O2CuBgeq dHI+EX44FPOhHL35rPYg mGTip2binUg1DjMfDOQa DDS5eLiwGDhvy0XhEXRm S12laWXjk6N3RHMv bGx (more content not included)... [facility] Coding Summaryon 07-29-2023 Coding Summary HTMLBase 64 GopkfjpqSCb4hPp+PGhl YWQ+JE6VSXHcH98fhBTx lC2tL0ZRGPqKPpwdFCER JSwKQmJqikZgGN9fkKEx ZXJu IC8+CB2fTDPqOaepcBKr r2U0jPD0S68ssf6mRXvx mXM3POZeWxUjrhrjb9oj nMe1HLguZakdJcFo LZVlmC36PWH5lB28Pd12 lSBccQYts1yptEm4HdYf PJCfOPF8tUxsMDccd8Ee HWFgY57pmKGic2F3 IGNvbGxhcHNlOyBlbXB0 vV3kFVbhfpzec8nkqhce Gpy1qa02rINhi2K1qCD5 A4SsimV2NIFlaYWi MatfjGOUgQ9gkhykw4ym jcllDwWqOXYaEDq5VHb5 SLHukFbdMjInDM62MFK5 OFHomiOjP0QmBAHk lFylSbN6p6D3By1GD1ZT IhjcD0RNUMMVSZmrgMR+ RP15vw42R9HxJeqiLpc6 TVOsZMN2xSI5eG2x IIAhVAkoe6J2kJZ6R0Ai moGlez4ag0ekZGVcKXxf T82wjUEvq3S4FKInqDN4 UQMbfJbxVqHfdO14 Oyc+KHMysVgbu5ZdThpo i6rkx1dwnPq7QtzgYHOu tnWwpKxxKFH2i5DpCj8s WYTumPN6oTJ0pC6k SqFgCpA4DVsdW869TlMx lIZxFojcF93pU4DuuRG+ DYJmLpz0AIZgpFevBX1a T9PmVIUogjfygKOa yUnhXM4cERJoitypRILf yG9qMGDxJ9f4RhGdQdI5 JKefT6MtERGrtbtzVk28 jS9nWoIuIgR4VBsf J8BueyP1IPTlcPAjNXbk DTB1C68pq0E1XCZiBSRk NZE3pYJ1lV3taYdfmqbk bGVmdDsgdmVydGlj TWzjAJljZ250DTNoxSxx PkNvZGluZyBEYXRlOiAg MDMvMjUvMjAyNDwvdGQ+ SSFvIXX5lFtmIAGj jPMbIXcrDa1fkDpfuFqr YL8zYIRtcuaqRLLuvS3p PGFqcIFnhKbwGP4eUDKs uwydd969NnUfQYU8 YGJviBSfB6HphG3cXsTc DFDrPDMbO3WubXGzZOwv B521HOdjGrH2YGEcsjOq J0DgZXFguKcyWxH0 z0N4Fp8Ow3ZkkegqD2Hy gGNsUuTcVxkbPKr6X2Dj PjwvdHI+TV42ZBNnZJ32 RAq0FVV6xDyxBYcg GMRwZ3WncC9tQzRxFGZq ZGRkOyc+PHRhYmxlIHdp ZHRoPScxMDAlJyBzdHls KC9uZo0jTHXfFTAi uBzgfEYxVuKwd7stRBTp UAyqSG5qyIokY1ZscJP7 UXCzh8q8Fl12X18qS5In dXA+INNmqFB3tSN2 pH0tDpUyEeX5VUjvN726 XbDcuPCiHqiej9ufp6pd oTt3TwD3UHPvnhCdcRfs VHV8z8KhNt70Q74y IHdpZHRoPSIxNSUiIHZh bQijnb4jnQ5nQx8+PGNv lBV4xQJ0sZ1oMwKvPaH4 NOnjZ295JfJyyIMp Tlvtt5hdl1grkCq3QgKp LRBigrMyxAygBNA0v3Od Zf29B3UpkMazt5DuKew7 bw85xBNzh1W4oHQ5 L8TdYQUazucmbEMswFln CL8pJBDaymkdKAFabL6q AGDtG7c9ZbJuOeX3CNpa D6JoicE5UUUohQAi WEZyoTOZsX8thtyuz0oy ujojWzVuKBXbNLj4TRj8 VAFboYstVfNhDUY1EuE4 XXY5yLGspY9gxLkp ouopgK3fAqm+IDN5xQXf dOSHRD1cGdlzuZX+PHRk OCU1fProLRiwHGMrkI5c ADBnD0j3ReXbTyT3 VTolP2LwbqV0GNUykALt TDDqiFWBkA5pjqrci8cx tlspCqYiTBJwSTy8CQe8 LWFsaWduOiBsZWZ0 SdT0TIF0lHEdaD0txDju dzwzpQ6sHrf+QmlydGgg AJX7JXr2R8ElJzl9QKAl aUfcEU3kgGJyKGji Ug5tqDajwOecXM8hEFEh jjgwp079OfLup1flDUCq tNBxFChvZPD9F22fu9J9 PKWvSVFeNMY5tBK6 hO1meZydjtfbyJEuxOyg kfKjtDvfCNygZBjgM888 RAGegLtgTcKbJXz0F0Af Vfo4CESktEmwUY2i pYVrMSvjGa5saKmgkWls SG2jFBDcegksj694AkLa w9djTEQdzGLoVMttEVG1 E80ae1H0GXDeJOYw KAC5gRZ4gV4dyWlhyiuf bGVmdDsgdmVydGljYWwt SKbfB516KOWcgLmqSbBw jKy5V1KpNfc7OJZt gUumIV1jlKAhINifWm9w gYsskYzmNK9bPPTwjehm k032KaOps1ooDHYzrWId OZzeDEY3V31mv0X4 ITTeKFUdQSK7fXY4mA3v bGlnbjogbGVmdDsgdmVy eBxvZDqaYFxjD997PRYv cDsnPlBhdGllbnQg HCkdJYi7Y6KhVaediHQ+ LJ28MEMsXB63xQJwiGOt x5zslLf9CgAuJOQtWRU4 cVhkBVkjq1ZbNYGj E48feOSsm1V4RYZknGif kUPxPlJeoUB8nD5pQQtc wlsml4bzkklxDovxm1qd va02qS19J31fLSew ZHRoPSIzMCUiIHZhbGln jz1wjN5jDk5+PGNvbCB3 gZI4sY1iJPHqPoV3NQzg H994MqJawMVlUjae p7ukp4qkuVw5RgH4ATPd vwDdpJbmPXL7p2GiLf54 E50uOHzqDHIlAZBhAFDm WYPejXnhoz8hrP0y Ii8+YLZnqMO0bYO5wZ4i SuSdUfI4PRiwG216AdUw qRBvGgotG34dS8NwjKD+ UMXjXbz4OYIwpIeu NZ6utKCdVKwwYq8oYUP3 UxBuXeUnXSbbG3YtOQYx gicjcefciON2ROAjPEGo jF33Ga8adEayTHFj jSQTiO8jxwghs8nwytpd WjXoTRDyIAt7SJl4YYMk yPcjQuKwRRW8WrN5DPD1 dMBfwK1syDzsqnwp qD7iP6XjUCXgnmxnYv16 hD4oHqVeQtK3RWcaRqu+ C3NGXbhkBM2IS6hCMMuz SzwvdGQ+PHRkIHN0 cGqfPOxdJBYycS0iNJCg K3x0ZeLaStE2KMdfO9Pz PUKbsvozLe54tF6nPjVd FaQ6SPcwP4MtckJ1 QAFwrTQoWYocCYE1Y25o n1U1GIMnGMXyADL2nEU4 cW0otKswgxiwtVVhrCca dmVydGljYWwtYWxp B805RHVarPjdMoXaLuB9 UfY1XtO3H4DfXci7ITKt xOlfNA6yzGSqIVhbLp4p tYenqMjaRM2zZPMu oacbUJSbaI0aZEFzdPVl dBzwCD1tKWNymxanu675 BjNbUSQ5XIBzeOLcY4Bk zN9wAoTcYNWbNEKi V6YlfPXaPFwqS388DFpz JdQ8TCCdjbCjD2JhYOQq sDxaXyA5t3C4Sl09PQVK ZWFyczwvdGQ+PHRk TXY2sOukKIfxILFzjO3p DWYoK3w6CgRiDfT3KQyy M0BpPZExgxxrSr41eH2w YxUbFnE0XUlxD9Bg tjR9TFQgbKEyCIgmMCF8 X98vp2X4SJWvJSEjWRN0 wBY9aL6yaAvrsxzsgEYp dDsgdmVydGljYWwt EXkaR738GUItoBdfSu7X IXM5I5WaExv9BUSpgQbu YZ7prXOoVFwkOh3riWrq cEjkRN5uDEFnginb GRNsiC7uENQvsNArhInv MZ7kSFBmispnn779JvRp UZY7QQKatYDiP3TahA4s JbFdUDWuICCcN8Ph oFQlSHfnI480GUfzGmU7 QCMmfbYnF7XtGKRbyMzv NhM6t7K6Wh8LGBazoCF+ LB90oj55V9IuFmff Non2KJTfILT0cQL6iN2z YUZtXMbrv3R2eQU2M7Ak dsDinp6vl0sfUQApXNvz L25ncLDcu6C6ADDm eKW1ZNXvbQfjXqPopS25 Oyc+SJWvkGjpg0BjZgmz z1ady6dpdFl9NlQfHXZc nuGdtFxkFIW2f4Tf Nh09H93yJLjbOHCzILMe ABHbLUXsvMvypi4ygN2y Ii8+PYUkbBU9wDS8rE5h GkSwLuD1FTvgD453 YuVbzPIzTqckd4yin2hu uEi7JnMuWFUgfbChjGte WDH4r3UxRr85R0RxuDnw e9KrVmf3tq63nEJh p5H7mBJ5F4FrLQRuafqc gNUxkUrtRX5bBNWvtrgs ZRMmmH0lRNItZ2r7ZgCs TqY6TCilE3YpcbP4 GHKjoPJiNHBipQRYuC4f fqwho0lwscjlBbGrFZRr BEi5AKc9SPIvyHbiWtBm EUL9MlN5NBW3rHBb wJ3moYfxjthsiH0xRpn+ JBt1o2emlJFkFW6syFJ4 FW01LB99iZPxo8Y8nLK4 L5CfVUAqgwrejshl hLH7QWMbSPJltB20Ix5q fXfjCo1nTRVqPED1RZXg pXKlE8AtbS0cHwTlNIRh SPKgI2JaaJDlLYhc E640MZalKeD2CUJivpTt R6PuQEZfdGtuRtK2c4F9 Wy2WUR25SE99IM06rKNw a7M1zZE7J5CgJWJr auuttwxmcEL6DNGxOWRi sT75Yx0wfAzbEe1jABDh PXW1ZBHghUQnU2YfrI3f DgZiJDRiVCUrZ8Nq qFGsFRoeE594KUbeUaH4 FVPtbvGsF7HvYQFryYsp XcL9q8Q9Am8AGq48SC03 OQ45pIAqr7V6mPZ4 N6RxPKCgxycvyslzjXC3 IXYiZWTgzR01Kf5hjFfk Us4sOIWzCSC4HUMboYLz N7ZzhC1rNeRqFAWx WTXfX1NhzKAeWRoeG916 HZmeFbA1AFGplrPwP7Wx HNIgsFybHkK1i6F1Gf8W VEvraul9D4ZxGreq dHI+XX27UFMyPL52eULp pXGuu3rheKx0XoNkIHSf KOZ6rRlhICczo8PjTQKi J11uuEDdi9B1ANNl bGx (more content not included)... [facility] [facility] Coding Summary HTMLBase 64 TwxqdxozWPe9oLj+PGhl YWQ+BG3UGCNyT29qbKPp hT5qD8PJOCyEYccpBPGQ PUnMNfCnxyXwMA7ivVRg ZXJu IC8+US2dPPPuYhxnmQQn g1S2wER1G71inv5gCSqo kKS7CIVfQpJesfphd0rf gTu2AYqyRgamSlXr PKGynW29SJT8zH57Ah54 dFLfsSCmp0yszOe1UxTn OGFbQOO9lNcsYRnuo1Lh UYZvF26ppZAei4F0 IGNvbGxhcHNlOyBlbXB0 tX1eFUodkuaao2yxamag Mry0mg39eOZss2A1sTU4 P0JtyxK3MJNulMGj UliuwRIPuX8umbbcu2nf tfpeKaJfXQOzDOr9XOc1 GEDcdYzdCxBaQB66OKW4 TDLfnwZvV0EvJFDz dDwsBjV1n9N1Oi4YQ6TB HwuxO3CTLHWFHQhlgHX+ MP56ro14E3ZuHkzgIun6 DJBxEGO7eBM7mZ7h LHGrANdla9O0xEI0C3Ea xwOubx9nx4nfBKXvQPgf A72vaJEas3K8SAGnjTL1 IDWssFhnHcHnyI29 Oyc+GMMufFplb1MoWxyq y2ljr7mvcTa6TyxzYMPf wkKyuDjbKQA6h5XzSv5c ACCmhZP4uQB0zB5p GkShNtX0TNhdE564EkQd aSQnOlnqM13qJ7HmvRU+ ESFsCzr2BTHafArvRX6g A9FkZMNyrtgfwCWb jOwnHQ9qPIZiqelcHXCm vK5sNMCxB2x0JuCzOdR2 EUxtC0NtMUIzscgaTg28 oI3vMzNeLvA8IYdk I8WlueG0PFAlmAAjYSvt NNQ8Q24ob0G1DHOnQPGa ZOY5eBN2dL4srFxpkfgk bGVmdDsgdmVydGlj LWukFEwxZ185QWMlzMgr PkNvZGluZyBEYXRlOiAg MDMvMjUvMjAyNDwvdGQ+ TLTnDIK0iUbwTNNo qZTkKVlmTw4sxMlijJlu WR8eCSUqzjfhUNPulP0k HZVfbGHrbHtpYN1zOSBt axfgv590AlXpFFT3 WGSzkKKqP0HusE9bTbWx KVUmLJTnW5OkwCJzMAer K953TQkdTnW0QNMxagHt C5IlOBHltSfeZaN3 r0E0Fe8Fs2HrmilyH9Lf uPEdQzQkQmtpUOe5N4Ia PjwvdHI+SD45ZAWlHE36 LCf0XZH5gOnlLLqe ITHcK0BekW6bMhXaTCZa ZGRkOyc+PHRhYmxlIHdp ZHRoPScxMDAlJyBzdHls MP3tTs3rFTCsYKMj tDzyzYKyYpSxm2jiTIBu KLwiPC6ttPinS4RfdPB5 CPRec3r3Yc10H67yO8Zx dXA+TFGngZN4oJA6 tL4uWhIiQqR7LHsgE321 OtFaaHIjZspvz5fpw6xn jGl3XrM1WKRzoaVbgAje CCI1r7DpBx03F59k IHdpZHRoPSIxNSUiIHZh aIotbf7gfR6xCw4+PGNv zHS9sUF6qM6eNmKmXqK9 DAggU954FwBmeSRg Nzotx8lvb2aqfBg7CdLw RGItnqPbgYrhDGR5x4Js Hy78E9XmeWdin7XoWlu0 ud09rCDun4F9bJR7 C4NdLADncffudTLvpDfd KM3hMWRkqsziSPIxgZ4d ZDWfT7j2QuVqToF9ZOpe Q9CgbjV9SRErhBUm XYQwoMVVnS7cyazru5ne omavDkVrZJYtUMf7BTw5 RMIguPgaTzSaAJA7MiA1 BFN7bGTskV8jhDnq xjcobQ5dFyj+TON6wDBk oCMUAN4eUznlxBS+PHRk CKE5vFhyBOlmHRKauI5q CUUqG3o5QwIoSmP9 ZTwzN5HxkqI9EVUxvKIx LZInhLSSuP9xhclqw7qp qyoaVzGaVYFxUXa4DTs7 LWFsaWduOiBsZWZ0 LqD9VRY9kQMpgC9xaDnf ryrmvH0tPia+QmlydGgg KWI9KWk0U8TeJyu0VIGh nSsoVV2ufTLoSNme Nt2vmNeqcMyjWX9pGFKn ugydu162OqIjv3erYXBh xVMoWWydNCT1H13oq8Z3 HLRlRFFjUJX7jYM8 xK0feWpaegfutMNeqUtk upZvrCfcMYdxKMeaB693 OKHcoXiwMrKqVYo2S8Sd Gmp5GRGnlAqbSO0h hLOuLOicOj0yfGgyoKtd PB4yELKmkigty647SrTq d3atJGMqbDVmDNcyHHJ6 T99kr0G1XWUuJWDa NED5iEE9vA2liAasorek bGVmdDsgdmVydGljYWwt FKabL006RKQlwQedVvHw nUd3C2MjRdv6VPFy uXscQO7rnULiJCrdBi2u bHxyhEdgGF0cMJTjsiod i299RaSqh2awXUSeeAZf BEfmHZD7W48ua3O8 ICIiMIQwLYN4jFS6wR0s bGlnbjogbGVmdDsgdmVy rRilHEjlQJiiK054VPAl cDsnPlBhdGllbnQg ZZmeLGc1C3VfWplqdFF+ AB40FXStMU70jJMjcKYz h1zycFe6ZxVmGUDvRUZ5 cWzrFTpgk8SvGZDr L57rgIIkq1H8AFOlqYph hGNpPrSpwCO6sE2fVEir gvvsf7vchfmyGwppt5fm xi03oR14A30jYIpa ZHRoPSIzMCUiIHZhbGln gx8pfG4tDw2+PGNvbCB3 cOW6gU9vUPYiJiS8KQwk J666CtCxtDBtRerp h5wwk7mvmYp1TiE3NJNx kcYyoKzqLGD4c9RcYm98 G94ySNtwQYEtCQFxMBXm HVClcXbstn8gwH2a Ii8+SGXslDR8eMY7gQ3g VtVrZlH2YHbnG154ClKq nKTdUvldT03tY1ObvSV+ FURuKqu9UNHxbYhd KQ5hmWJkICbaCd7aUPW1 KnYqNeHtYBycF4IgHEYi vazkmxcikCL3SKOsJPOh sH86Jv8hjPgpZCWp uTPZkE2tupwnl3egjqdg UdAlJNSrURx0JCk7EMGp bLrcEjWjOHX0MkT8LSW3 wLBvxL4dzVikqbkk iW1aL5PlFBQngwzrXa07 qB7vBxRiNdR5WOiyPzg+ R6UDQdxkGZ0FC2gVDXwl SzwvdGQ+PHRkIHN0 bClvBOtiLSWpaQ3xKDSh R7k9AnTqBlY3APvvM6Sv AVDpedyjZk31uC3wXlAs KqR9HKfxS8LpadH5 OWUfkTLiMWbzBXK5T37y b4N9KAXkVTDuGDM1jQU9 bZ4vyZcefgmfoWQdlEhv dmVydGljYWwtYWxp X759PHPunHrkUoUqWdF1 ZbN2ReT1A6IbNmw0ZZTt bKohIG1iiXUkNSjrTu1k fNbwgTujHF9fKMXx ctejTDKxhC1yUYYppLOa gOruRR4gEWYpsljsx638 GuZxTYF3AIZkjZPxH2Nd kN6nUwUhRXTkSJUc N8VnkZSiJKzmN166CLul FoC2NSEixoWvZ2XvKIUp pBwiMqZ5j2U7Qb19MZMF ZWFyczwvdGQ+PHRk TIZ0rQcwTYhfWKJmlP8f RYTlR1a8XpUbIdU1MTqr A0LyGEPegsmvFn31uS6v ZlKrXmP0RTcyW4Bm vhZ8QLBqwRXaLOrkQDM4 P71mm6R8HQKlXAWuMIO4 gHL9aX3rxVnachcmqUOb dDsgdmVydGljYWwt DNqzC619PMQxjBobZv1P LPL9B3EdJho3XJOpbYeg ZM6zwHZsPDfjWs0ytGhv yMlnVP6mVIKmwmhc ZRJisS9zWHPjwIQjgIkc WL4nDRLxxswxp511HsDh JUI8UBKvgLLyI8KriN1q VqDxINSdATGpF6Aa cKAnOLitI990QQzgOzT3 JKYspiOdX7OvZCUnnYjj QwQ4o7A4Vr7QWYxluJE+ RM79fr66C6MsGvar Xoa1OZSrFPV3aNE4bK7z AOUuNRzsc4S0wEO0A6Qw bpLkak6lo0arNGKlUPid U69joHQiz4Q7MXEa gZG1QCPnbLtmQwPtuE38 Oyc+BAWrwJuol0HhBzlh n8pib2uifGi7MkOqCVGl nxUghMkeNEW0l7Le Fw17Y32pULbrDRDgFDUp TGYiBKWvoVnkvk1nuH7o Ii8+DCDxzKI8qVD4aW5i ZcVnTyV4MPfsM024 ElBgiWGpFjwul6yrm8co hCu1GpZsAYKampZuwFse QTJ9j4HbBm98H6UpbZkx r5FsWzy4ri34qPIb j6S6cLH3E2IjPLNkntrn gILklTgpIV1bBBZzfhjl IRJnbE4gYZUfM1y0EnKd HtE5ZXtoL1RihcS0 RTKfgRNxETLhfSFEaR3v dmjff3mmkksmVrTfFFAq VSt4QQw6WNBzgQcpHqRk ZKG6IcQ1DLI4qFLr xY9syFtdlgxdlC9vAfi+ GBl1e0dszBFxVJ1qyJK3 XU23JZ60zXOtd0T3zXV6 J3QpSFXjpdukkaik wNH0OYUuIEYizK10Gf9r qDfvIg9uPMIeQDQ1GSIo hNYoH6UjeO0hAhZiUHSm EOTyY2IeuORuWElz X980CBzrXlD8LGVtumEx U1XaOVUoeGqmIqD0n1J8 Zm9SJF53JD91IY20jDXd k7U6fNF8B3TmRXZb ykmbbrxkyQR8UINwARXk uB09El0fvZlfLa2hYIXh AJQ0KOJhuFBkL4DjwX0k BcYmFKWqAZKtJ9Hz wIBdLEswY517UPlmWbN5 WTPcjyOzX5HjZITxlGim MvW2q7R8Ix2LFu88BD07 QJ75jXJfq8X1jCF4 D9YfQAWdfexwbzeizVW7 KOJdMARqgJ36Fn0vnLtr Zq0jTZAoLWZ5FUTweVNy Y6TvkX3gWjUwBRYy OEWeP6BuuCKiMQmdE328 LQolJjB6TXSvfuZkT4Xi QLKmvBxrTwH0m9Y9Le8W CWeamwx8V7OlLosr dHI+YN14RZXdYB19qRYf kVKep2wucMa5DrKeIXHr DSD1oJvbWZqoh3NsYWFk M97xwQYsc8H3NVNf bGx (more content not included)... [facility] Wound Care Noteon 07-29-2023 Wound Care Note [id number]#1. 00OTGTIFF [facility] Coding Summaryon 07-24-2023 Coding Summary HTMLBase 64 RyyotljdQMo2vLa+PGhl YWQ+DJ9KMFEcZ39ilSHx fY9gZ1ZTUZdWOhoxIQJI HQlMMyLffaRbNZ5fyNXx ZXJu IC8+LE8xPHTpKnqooAPh g4U9iMK7U69xeq9tNJyj kGO9RCDlGyQxshhii3od xUd5LXohCqnnLwTr KPKkuT11AEH9yX05Hj67 jCPmtFAsg3qjzBa8OoBa FZVxWXU1oQbaCMhdv6Eu WRDkH54okERjr1R1 IGNvbGxhcHNlOyBlbXB0 rU1oNLecfhmcg3lfeqph Laq0my16xYLyp0V1wSH5 J3JtxyM8KDLopSEh XedxfAAWoH3mbmwxu9or ursvLjKhVZAgBFp2ZRa0 WANqbAvoXuPuJX50JUD3 JIAmrtSjL0YePFJq jDtuWhH3s7D9Ho9MT7YN EesoI3SNABVLDDuvoKN+ WX46in50Q5OgGoyyImk4 QTUnDDW0pGH0bM6w WDFxHDszo1W0hHK7N5Ky mfGjrc8ue4lzPWMcUOlw T26bvPUuh1G2QEExrVE7 CUVnrSkfWbUcaK07 Oyc+IZEimXmyq0CwOyzb s2fys0jnbZd2MnurVNKa bzCcbTkkJCL0t9RbZq6b DOXhvQD8uSR6eP0p HoNwCbK7IWxuN803CpQq mEIoKcyoK39wA2LvpBP+ TPGkYok2MDAtcTzxCZ8x J5OkUCUqkgisoTXg wSzgET4wXEHcrjzyEWLt aF3oORGoL7i8TjPeIaN5 ZEirB4FzNYTrxbgxPu65 kQ1oYnUiKfX2XDzq X6VqapY5HKFiiPRdUOmh LSL1Z55cj2P2CIHuOFWs XFK4iQF8nE4laMfnsvct bGVmdDsgdmVydGlj HUuxYKbvX673DUPskCtc PkNvZGluZyBEYXRlOiAg MDMvMjAvMjAyNDwvdGQ+ VOWpJZO3tOmqUTWd xROaORtjMm8dgGtufFxi SA8gRCUiuempERFioC8h HPHavNPbzUgySP5xBCGa kfcxr881MwCoZWP1 UKAznXAyR4YxyF9tMcMh XSPlGYNbG0MtdUXfFJdt J639VXymUlO1PWQxajTy S8TzXMNdwVezEiT1 e7E6Qj7Tr9TangtvX9Sk gAQhOyFlHribEYq0Q2Zk PjwvdHI+BU36OEXbZP47 FHz2GTJ8sOcdAPid AIGsB9IopT2fQvLxHEYy ZGRkOyc+PHRhYmxlIHdp ZHRoPScxMDAlJyBzdHls TQ3rKu4rQZOiDJGl cFozxGFaXsHuq5snMLXe VKwdWD1giSlmR3FpmWD7 OKKkn3a1Xb23K49mV3Ko dXA+HRYmcPH5iMC6 hT4yEmSjMlZ6CEkcC351 PhTebVUwYousx4psu3kc iQm8ZtP5TFOcutAhlSkq HIU2a0UlMz86Z62h IHdpZHRoPSIxNSUiIHZh tIqbpa0rmG4jLu5+PGNv aNP4wUG6aS8vOfIqBaI2 CXhrW397BzMuxWPc Krkyw5ecu8mwdIk4CwBx GSJcykEguQasJJL3m2Pe Cq71U1OiwFjdw4FlNkn1 bp39lODwi5P4rKF1 I4CsXVGoepbszWYbfHpj MW5kZXGftqtiXMVjbW8q YVAvY0e9JwBiCkA0DCdk C6DiliI4OZJbiQNp NIKvmCRNrF6qsesqc2ij osrqHuPuMRFqXHj5OHj5 JGUknFibZqInPDD1JwM6 IGC8zLBpuO5ksXis ogvkmE1pFnw+BAG0nKIk hWACMB9yRreafVM+PHRk CYN1gQiuVSliFJKsxM5k HXBbL6m1XyExTtW6 WGonB4YmrdS4JTCdiGSx BYSmnTWDaC1ffwmfp0rv rpvkBgOmSTGxKDp7JEw4 LWFsaWduOiBsZWZ0 ZjS3QDQ4eZIvaM1zyGee fbiyuV9fLod+QmlydGgg URC9TZb5Q1BeVyc7YIFy jTrtVH6heFLsDQfu Wp1wyPbgjVtqXU9cKMPv mdehe028SmTlp6qhUKSs zGWvOHdvCEO5D75tq3N8 XNCkSNGgAIA5sTX3 qM8tzKsmjxssaNDirMzt vgHbsHquMQdqMFyaK070 JGZfaQmrJsSaFOc0F5Cg Zfm5FYAwyNujLQ7c vWNsYTpiGr6mxQkcyFjh ZV0tVFWwkzack662RuMr l9bdZYHhjMTwFUaqAMN6 H03yn9W5RCSjJFHa LFR0aDI6hP0hvQchuryn bGVmdDsgdmVydGljYWwt TQlvR427NLJsmBmuBqAp sUz6P7BdAco0BKYm lGanCX6liWAxAQxnOf9x qTqtxRcvNO6tXTAlskuv f352KnAjd9mxJCGooCHd ILtuJDO4D47lm6P6 HRZxGUOkXGL3pKC2vZ4q bGlnbjogbGVmdDsgdmVy aJgwSYqeGVipU529TDSl cDsnPlBhdGllbnQg OZhuTAt4O1MvUpguyMO+ TR94FUHdNJ33pNPngIDt t0lrrOo3UuIyPPEpPMY4 bBygMSewp6TbCLJs T18vtONic7O0MGCupBws vWDgAyWiqCP0nZ6pMHgm nypwv1qmgczxNhffy9gs xk42qL32C35iRXzk ZHRoPSIzMCUiIHZhbGln ws2itQ2jUr2+PGNvbCB3 sKQ6sO5dIPDdSaJ4EOcp B425IrMgvJBfZhjo t2gaq0xjvUb5HvU9XSFd gnQaxNfpPSF0e7OzXu59 T91zUWaqQMZxWDKcDVVa MZTklKmlys0loR0v Ii8+VBRkwEB3aCO8jC5a MyIsFaG4NCehE006AmMf wJCeZbniD81kB1HryRH+ IWXnIiv6HQRysCld UC7xdELvQNiyWd1tRIF3 FxEkVwFvFDnnD2VzKQRg rzaridpbkDD2WQYdLNNo zW24Je3brJzlTNYo bIVLzM6paqfdl4dunyns OaGyEFKfNRt2QSm0YKDs dTctZdFpQPG7YlP3WHI0 pYVjgY7ktJtiepme vU7nJ6FiFIWjdryiXp76 eA5mZzFaZyK7ZWtdUmu+ H3KFPawoHC8EQ2sDRVec SzwvdGQ+PHRkIHN0 dUpbMSkpNYOmdF7sWFGo Q2l2EeByFlA0WUneU0Ab IXGqhcraAu86kF1zUhSq PyD5HNgoQ4McomE0 YAIzuNAmOFjzQDY2P12f q9G7OSGhBNVcIHY1aBD1 yC5rdObkudpfoIQgiXim dmVydGljYWwtYWxp P883RXYdaJdcJjFlZlD9 XiE8WnS7F4EyQta8ZLXk cCvxNC1iiYYuIWcrSf0b kBgikSvtCV0hQCXt befhKBNxwO1kKFFlaQHc gYzpYX6zECMgappsx084 BsWzFPQ0SXMwfCChQ4Ne pW1kRvOgLFFeYCAc G0XtgHQfAVwkZ145DEzc EqU4FDRvgdFjY2AfPVGd iHyuZzY9r9T6Eg45BONJ ZWFyczwvdGQ+PHRk YJF2nJavRHunYAIlwO3y OQFtS6i6DqAeMjY5DOso I2OeZUFfrlnzWg24mM0s UiGbNiD0DAutI7Hq xrF9FWYtvLLjILkfKJV4 Z39rd2K1JXQzOGCtMXX7 aVB6vI7taPizxwxquDYe dDsgdmVydGljYWwt GTfnU725OMKpoWtjAq0H XHG9X6LbNqi1PXWcfXmc QK6rwQWdZYtdVa2msKvs uUwiKX5eDPHorjec FDRxsW6cDMKlfPNomFtt HH8mFUFihkpqw757CwBw UGB1CYNwkFYyN9SfjO0a EpOdZNHbJVLeQ0Iv hHHmXTlwB090LYdfCeM2 NMJqujMeT1GlFIVcqOyd GmY5c9V9Uv8ZHCbakRK+ UP03wx93I1JmCsqq Pyz2EGDbDWM4vDD0wI3m XQGuKEbur8L0cSG8S5Od qvHkye3xr0irKSNkURrt B97ppTWxp3H1DQSq nIF8LKLwjMinWsMmbB03 Oyc+DFOgyLuug8PcNowp n7fii4tcpAk0QwMcUDEu dbBnkFcbDQA8b7Ae Vs32J07jZBgjTCImZKUe THAsZGKrfLuazl7reJ8r Ii8+ZNAuqNP0vEV9xW4w KaXvYeL4IZfhH832 DnSxtSKrTirok6coz2ma yRp0AtJgVVSztgPqcHpe OFM6y0SkFv31C0SinXuv h9GfXxo2rk38oUCj h5J5zQP9K3UgCYNrzjwh kFDbmOvxQL1qOSHctpma PKLmwC6yHMDpZ0k4PtKn HjQ9LCvtY2ToqlM4 CPNeyPOeCGSyqNFLjQ1h oiadc7eckkqfUyKnPNNf KPc1BUd6NNNiwSjsFdTo ZTW7RxJ0WUY1bSQi cP8tzHhuchlvgU3yZur+ NSj7u0yoqIVpHO2auNQ4 MS26XF12yQDjl7G3yIH6 N9YuSWSkkehcdisv pJR2QEBjFMSxnX45Yc3m hYdhFv4zNXCvYEX8YDWi vVRnG0RufP7vGmTcGYIa DEOzD0HhdDIrYKsz X261SQfrWbP1VXWygiUg M7NwZMKksMulYsM4s3B6 Fi6COP70SA47NI51rYOv a2P2uWK3S0VhTQNo sfaopplqlVX1KBLuHGFd fK56Om6goQkwCo8oWCPv EGU9LGMdhMApA7NfmU1b TiPeIRNsOPBmY2Ly lDNxNJltJ903YKzsCsS9 FDQetlOdG3ClGKVafElq PfR7v1R7Qh9NOz39KL59 YB68vHQty6O7zQZ7 T9QtZCQdmgwyoucqiOI0 WNDkRQYulC14Ce5nkWls Jd8fTJCvBLD6LWTghQDz Z9BhxH8qCiNrUMNk WBNaA8KjhLIlGJfmU770 WRieXvD2ENMgsiAhY1Tw AWIslTsaXhH9h7P1Ad4B PYmcqpf7D9GwZbco dHI+SF88OPLcGZ51kPIw yILfr0dfmSq4PkYjWFQo WZT9zOpdCNexs4LiCSUo G59asHHwb4O9SAUh bGx (more content not included)... [facility] Wound Care Noteon 07-22-2023 Wound Care Note [id number]# [email or web address] [facility] Coding Summaryon 07-19-2023 Coding Summary HTMLBase 64 NpwexclbCYa4bJh+PGhl YWQ+OI2HOKAjG97nxWKa mZ8oB1CZTFxANjtfLRTN TXfTCjBqkwEqVJ9vpAAj ZXJu IC8+DP7mIIFfLbcvhXYj s6H7hHU1E81lft2rKLmk mRE8JRQdBtLeuaghw8wm eNi9YMxuEebyFeWe SFJbkS45UJZ7zN04Hl45 vOXlaVIlm4vyjId7LfTl POWcHUB9yQmzLWbcp2Cf QTUfJ00llWKib5W9 IGNvbGxhcHNlOyBlbXB0 dX9mVUzfovwei9laqpaq Jlu2fb89sYMtg6P5oWA6 B3IcryR2AXVyfBCv TrurnEXFqR3xndfcg3qb xhvbBsGrXTNvFRg0KUh4 ESAzpYmsJhZdAZ75CSK7 WDIliuUeN2JbGPIy lObsHkR9b2F0Ol2JH4RV UjweX1LYKNNFQVtnzAD+ MJ36ku53V5OjFqrbXxk8 WNZzXUD5jVW8dH1h ADShNEzay6Z4pJA6Y3Iz qhQjmg6gl9nhHPTtYBrr Q63iwVEvq2K3QOWeuSN0 ROLvuTqcBrObeL16 Oyc+FQVijWesm7GuWojq i9fsr5nyiNp5OihhIRSt zcGcaUtqHSZ5j5TcGx4f ICHlcPJ7gIG0zH5o ScYnTgP4EXajQ192ZvDw oDSiIwkyI97zS0JskSS+ XBNjDea6BPVboJwrUE6k O0AjPATmnowxgUBi iOvyKD0iJBQjspqbDXYl sQ8wCOQyF6o7OpHwNgP6 NHpqS0CgXCAvxzsnWp46 wM0jXcOpPcX2CLbb J1ZfsxX0BANulLJdXGyt URV2Q51nr2L7XNVuVQGo ECU0wGV6gI7jfRydspnz bGVmdDsgdmVydGlj FLaoHCcjG545DWSbhFbl PkNvZGluZyBEYXRlOiAg MDMvMTUvMjAyNDwvdGQ+ MKBiYKN9gVvjCFFu hMDoBAmiAp6blPirlQoe ZY8jCNZqykxoPOXbvY0z ZTDmzDXjcMvyKT2pAJEe dfhrf583WsBhBWE7 HZZkaTPhH5CavO6dZfNp TGHwQZKdY6GukVRyVFwr M028ISwjDfA6QXBzkrEm P3RdSJDrwHlqGvE8 f8L2Rk0Vr2ZhilwmA1Hn rEFeNhZeRhalKVt0D0Wo PjwvdHI+HL11HXOhEN71 EZv2JCX6yCiyHRtx REQcS6JyuU2uZvObZRVx ZGRkOyc+PHRhYmxlIHdp ZHRoPScxMDAlJyBzdHls CO9vDn1bUSZcPBDh zLtooCIqEfZmh7apZUWa KUtpIR5fwYblV0OufKB2 FDPrn0r8Ll53B54nZ7Yp dXA+JIOcpJO4oAT1 oI1bHsKoYuD0SVdhW318 YjWnnEIfLoccd0nks3ny yUl5RhB3SPAbgtTrjLux WEU4o8XhJc79R91c IHdpZHRoPSIxNSUiIHZh zTtqis3oyJ3sMl1+PGNv nZC5wXY0tX2dJiEfVnY5 PLfyP079IeHauLZs Swrzy0kbs3smfUg7McXh ENEfaaGrpHlfJSK0o8Cb Xg23G9IdtItnh7TvUjt8 ne42vZAxc8V0hXR3 R8UwYBWdhmtzxWOchMsf CH3rQTUiizwzESNreN3y MADjZ1s8TfGfVcN2WPke N3SlaoJ5SHHhcRMd CSDygXHKbP9nziphw9ay rnssRgVoLRQeJKk4UWr3 STAvmKapRsVoEKW8SyA7 RLR7gLLsaE1usNlw alvcnK2aBos+JFS3nDRu lXVNTN0dLeiyeXJ+PHRk FMK8cLkxAKmzFHZpbZ5m GQAkL2k6BrApSuU0 EQtrV3QkmmC7YJBmfPSk VELoeRIMqL2larcut9zf ykyqAdNaJTPlSSh9AYc6 LWFsaWduOiBsZWZ0 OfF3OWV5oQMpvD8fcZoz hftjhZ8tRdc+QmlydGgg TGU3BEo2B7HyGjx6IVHi jLmbEG5edQBkKUsy Pk1ihLlbhOmcJV6eSRDe ztfuj774BmMqo7awDYGv xOJnHEgeRQM3B96po7Q9 UGJhTPKaCMA7dBG1 lY2qnTvhadbpqGLhsQwm eqMiaNkhWEfvADwkX534 CNBowRfjMuWiWWp3L6Tl Yql5KMTsvYgmOX7z sCNnEGnhQq8xyGpijTia RN4wTXMiyejdy924HxPb l7jhAGYrqWQbVPynUTS2 W63ny0Z9GLLtZNEf ZCQ1fYJ0kT1vxVjiwuea bGVmdDsgdmVydGljYWwt CKzrN497SISbtGaaKqWs bQw6F8ZdAax6DSMx dOrcPM9poHDcTJbkKt8l qEsqtEzqDK8fNCVjjmte u347PfYcd3ymLQVhbQUe UCizLUT2U10oy3K5 CHUxCPQlGRT9mDP0uT3x bGlnbjogbGVmdDsgdmVy aRdqDFcnJLlfW187WLPy cDsnPlBhdGllbnQg ZJnuBKe4D8IbNxbwvST+ KK51BELqCF81eVPwfOAn x4ooxYx0SyVwQADrSVT2 lBeyDFbtf7HoOVAy Z48waRGqs3Z0QGTtgBvy kBYpJvVnvZJ6tY0bDJox jrtyc3dimsugMcpti4hg lc65oJ59S77tADtn ZHRoPSIzMCUiIHZhbGln bf3dzI1pIn8+PGNvbCB3 aJY8dF9nPMLiBtM9PRbp G434GuWabSVqAytn q8hks2isxEo2PrU6DDHx ejBqpVhuCOV0q5PkLk16 X61tHCktGUGsAYUaXDLb PXUxkIrxgh4wqA7f Ii8+YPYfxIF4vEY7eB3p RwRwJnN3ZKbdI165YzCw bBGzLjvxU85uQ6UzcYG+ FYPdNoy5HEYwwTfi DZ1tuVIwRGgbZd1vCLZ0 QuJzBgObTOjaY2AhLBOc bbaufgprnYT8ACFwNDLr oZ40Tf2sdRbhLJIw yRCAuB7ssngzt1dkbbth FjIxMWHlLJu7LLc7DQEl vGsxLeCmYMI4NhQ7VKA8 eSDztN4bwHlfmcfa cZ0iP6TgCTPxxcotFv56 hG2iCrDdKjW0OMjyFwu+ O8KEZexrQO4MW0qMGDti SzwvdGQ+PHRkIHN0 tHpnMYriQOHkjP3uIYIz R6l4JaExJuY7WJmtJ1Oa QUAbznajOp60fZ9oNqMf KeG9LLryD7BvmjF0 JBTrqHPvRRhbOWL9U95j e0E7GSAwLDPgKYE2wPT6 gP9nmPuqhagxzOLdmTph dmVydGljYWwtYWxp C221HTTokZpaZuQbOrQ1 PdG0VlC6Q4MiJys8QDNy wTfjXI8ctKJfDHfxWz9c fIiacRklJU3fXKEe iyorTTIhjQ2pGAKmxBMx sElnXP5eDQNhpiuds351 MmTlBVB9INBijXOtO7Qh yG8lXgZdPZXbDMDg B4ZiwYMtKJmvB360GDqr DbJ1FDQcnqRnV2GePEYr rQmpEdT6a6B5Ep53PXKN ZWFyczwvdGQ+PHRk BSK7xTzhLHsfIJVniT6t OFYgV2a8SqUdNcY0FKfc Z4WpWJQqpuweHb84wR1y GrUlIsJ1SGosX8Bz uqB6CZZtpECyJDmtCRI3 H27nw9G8AHHmUKBzABZ4 lHN7xR7jkMrsfflfaSYz dDsgdmVydGljYWwt GSwtS934WKBnuKlnSh3H AQJ4Z3VdPlt5YCWirYmc RP7ecYGuMRiwJm2jzEro xRaqDC1xKQDfslpb RZAueY0xSZYjfFQblYpw GB7jESWfmxmwk415WsNn WAX3BKXigRLxM2TwfK3s WkWlCJLtPPLhU1Fq uKVyTZrkM125CJvuMsO4 PBWlicVvA9ReSVOmrGrj RaP0i4T7Bb5LIDclhVP+ DS57oh83J3AbYhar Qjv6OSZsKPS7vCC9uK6z BFBiCUsjb5I3fAX8C1Lz xkShtw9vf6spQIYmFPma X68ctXUfy5F0IJSm fYS7OMRyqZrpMuNavQ35 Oyc+LLSaeIvyq9LrVduj o3bfi5yykAv1CdRkQLGr leQeoRasJAI6z9Ll Ft70O06rDVxfSAHwFVEp TYApMEXheVruum8rbH5y Ii8+VLMwuRJ4qBF8aH9e EaCtSgJ1IOliF889 NuRedPWwWjtgt5tll7le pMn5DoYlRYAeygSwdSny QNB1o8VuLe89D6FdkYkt w2QpXol8by67kNWv b3A6gQI2Z0EvURWifoio oNDbuNkkLH3vHYKxjecj GPIotF4eQEWzM4f4KlKu VqY7NEkmO6KidtA1 NAHneLGuMREazDBQmS3v gwpvk4bjmnnjFeTsACAr GMx5KSr9VGEwhWizNmRo RDS4ZcS8CVG5nPUj pY4sdFdjrototK6kWby+ RRy0j3bojNHpFV9bqOD5 KX93TW81lKQrc8E7kCD3 W9MnUKHsopundbic pJT2OZYpXGIieV85Us4d rYbeVm2xQKDcIHV3SJPw vOAeU3KyiS8uPmFvPESd CHEzX9TrgENrGUer M356NTugMwZ7CSXtqfBk P4YdIOWawBzuXaT0x7M4 Vm2RPF58BD87KX88nRSf e0N0uKD7V6NsRRId dtmleybjqEX7JWCjZGTi gO21Rz7zzLfuCr9iDQXm OQI0ECJygWWaR5HesK9p OeKpNUIjYDCgS9Rt qHRyCGqeE733NDquJhY6 MDQlthFaQ9LmKUSuzKka IdJ0m5K6Aw3NTd67TQ99 GJ62fPLjp3Y8lBY2 J5BaXJRsdltlalwvqUD4 YQKiEGHgiJ24Jb4tlKdu Ml1vJUIzIDZ2CQZxtDVv X7WlpM6eKzEyMWYc VSVtI6SgvHUzDQgvP812 LCasHzB1MDWdryCpQ2Vy PGIqiHviYiZ6e1J9Cd8T HFhxvoa6H7KePjab dHI+OO07BAWvGW71oXUq sVUft7irvAa4UtQtYMXz GUZ5tSxhCEqst0ZaWKDg Z76txOGcy0H8AZFz bGx (more content not included)... [facility] Coding Summaryon 07-17-2023 Coding Summary HTMLBase 64 QaeyhjbeNRe8yHi+PGhl YWQ+QJ1QHEFwJ12lkKAk hS6gZ5WOYFvIJoakWIXJ COeQRoMtjvMgRS9xcIEn ZXJu IC8+SO8vJCGwQirpjWQu g9C1kIK8W53jls6wFRqr mGP9NBLmEbWyostha4np zWj8ELnqHyccKvYa NTJmfZ63LFU5mF86Kj37 qZWbsCLvk8isjWf2JqVw HFToHKG4bJgjPHieh1Pa BPIoG66gmXWhv5S8 IGNvbGxhcHNlOyBlbXB0 fS0lWPcoewntx9cusppq Oxl1gv76eSKll4V7sDM0 G8NganL6TYWehSMx KqnfvBPHtR8csmhvn5kr dqyzGsXyOHHhQEj0UWs0 LYPzmWijZbHsUV41WIF0 ROTnukJtY9BiYLLy bChtXuK9y9J8Pr6UT8LM NtvvM2YPHZSEPFpejUX+ HN34wt26O3ChWjnhEfv7 VPFvCXT6wTD2zN4k JEWdGRlcp9M1pIO6N0Dy pkAmsp6ou0czVRNuIWfl N45voOIac6C7OVUupCJ1 NPUjiLmkQvTwnT42 Oyc+JSYdoRxvw2XgYxjj g8lpr5trjHg6PojcIBVw ssXnqAdgMDP1q6NnBc8c DKEmxVI2gOR9pY9x EsXpTtY9RGbgI228EwXj sPVwVidpG33jB5GimXR+ YSCdJzw1RWRreFzpXN7x U8VhSPRtrgfyjQUk dByfJM4rWOHgmsoqBZPe oF1qNPNnN2z5XoWiYvS9 BZkzO7DcGPVkqncmRg83 cE1hKrAwNgP0IOfz D9FkzmC1PZCpyGNjZVfv MFT2U26ki4G2MUAcDDWp CAT7gYP3lB5fpSoejmso bGVmdDsgdmVydGlj NIvdMUnbW846TSUtnQfr PkNvZGluZyBEYXRlOiAg MDMvMTMvMjAyNDwvdGQ+ DIVyWTQ6rDgsKHEe vRHyKZbhOo7meHfbvLcb AK3wZXEjgcmaEQNjgG1r MXDijDMvbFjnTO5hSCDn sjfud769KoAxMSS1 SNOpaDTnC4FpmC7rQhCh VSFnSXDkC7OymXUpJVph M663JSqcLoR2TUKjahOo N4LvIQLppOnqWtZ3 f4H8Cv1Tf4QegaktN1Wx lVYxErGjKsoePLf7Y6Nh PjwvdHI+CZ71VPMvVY51 MMb6NMB7hFinHLvf DCDgJ6GdrU9gAzVqRZDg ZGRkOyc+PHRhYmxlIHdp ZHRoPScxMDAlJyBzdHls CD8zAy9bXWEqZKIs eCthtLBiSeCxs5zwAAVg JQhpHM0ykDzvR2XhkZI1 GPRpz0r9Cl18B50mB3Aa dXA+TVJhtTG3uGK6 sR3sKcYnTvS3EQswB598 MuQxtCPkQnckx7qiv0sl mOw3LuA5HRQktyEepHqq OQK7n0ZuIu29E56l IHdpZHRoPSIxNSUiIHZh iKklpc4peA0eFw7+PGNv fTP9fKB6lS6nXuUkVoE4 RUujX983EaBmhMWy Itgco6dwy7stbOr5CuIe RGUeowWyfGpnWGD0c6Bl Ob33P3VmaAzuv3CzWeb7 vx62cICxy8J1gST7 R1RbDNIoirugjYJtvFjp ZY4iTAAaveonQURijH3r YHEvJ6v4WePvEkZ6MBfb K8WxqgG7DBNkqEHk BNFubKFHxR0pveypk0qz boxfPwBxGOHfMTe7XZp3 ZAGlxBiuLqXwXRZ5EhO9 PXL8xJAkcI6qcRwc gstorV8iQxh+PXI6oDDe qLXMUN0yQvkmpUE+PHRk LDR0bZooQHapEUJgvD8c BHEhK0h4SqRrKnJ7 SKctM2EiosN5LHVaoPQr ANJtwCUAsV1nxdnmc0cv wygvNmOkWHBoPBb9GDf8 LWFsaWduOiBsZWZ0 AfB5WVH0zNUtnC1asMym ithhaL4mSbk+QmlydGgg SAW3GXj5K4FtIqn2QJGy vWdjGT2ugQFbGHsa Xa2smMemqOfgOM7wSUCv uodrd847PtPsp2ehHGAp gGQkPNsqCML1M94sd1Y6 SFNdUGHxINF9kWR4 wJ2rdVmunmzsbZDabVid rxVtsEfmMWhwYYpqE261 WOMkrHdbPkTzHQj6E2Yp Beh8THRtkZuzSJ0k bNEtANzcTm8pqKoexAob HY3kFTPlkwoet463FoTq o4imVHNahEVmIPdeUHD5 D00nm8Q8WRHzTUCw OGG4mER8lG3sxAruwqqn bGVmdDsgdmVydGljYWwt FCviR575FAXthUpgKlLn lSf4V7UhWlg8QTOg zXkeEB9hsHIsDGkuFk3c hKmhcQxpWU1vCRRjkuic k108TxUhf0maFULlpFSh XKmcRMR8M17fp6L3 AYUeXLPdGQZ1pDZ6zC5i bGlnbjogbGVmdDsgdmVy sJbgPQnhVBceN348RDPp cDsnPlBhdGllbnQg GCzeRHf9P3FcYqdijJA+ BT72OLCxLS89nLDfwBLc c8cseSk4KdWzPVQbYPP2 gJtnXXnoi9NcLAPb B07jkKCkl1E1RAHfxMvj cXPtZbEoqQH0jI1lNRmw xoapb8ursxuwMygiw2ju uv22sO53E20xJVug ZHRoPSIzMCUiIHZhbGln lt8roH4pDb2+PGNvbCB3 hFK2mP9nYXCiWkY6FUoj E009OwPhwOStJcuq w5ipf1fatCp2MnO7XZHr lxIgyKjjUWT6h1OiTr58 C37mZZajKGCeGVKpFPQz LRHgfWfcvp5ztT5s Ii8+GIIwcMN5hJR8kQ3h EnGrFkV7ZYycQ508GfXn jHRcKymjJ12fB2IbfFS+ HBKpMip3QBNneAaj AL9vbOVjPUxwMq0sHSY6 IlArHyCbVOigZ3BcBGGh yrvoabsooGB0TABcQAXm aO13Dl6npXugFOEy zLKBpV0kmqqmx7mshbob SkPuBQOeUJv0CAm2QHEk fBzjBjDcILP1EmR1XXN2 lJIzpY6ujDdbdvat lJ7aJ0DzBLHbkazdWn64 uT5cWuVtWnZ5QOpnSgk+ G5OJCyqdGW8AD9zMZRow SzwvdGQ+PHRkIHN0 lMavMHsiQYYhgA4tJFTf Z6n3GuIxWeC5IZmmX9Qa DSIwupmxRf50qR5jQqXn XtM9GDnqK6AuypE2 DPHgjRGcNKxjYDM2J04c u0R1SQXoPPMmFSF5rNI1 pY2zgPwuccggmRAokGpd dmVydGljYWwtYWxp S099NBQpgHslNvCfSzB7 SdZ5KvM7Q3QsXsz4SAPc eEgxPL2zcKQnJCumYv3x hCfixIofZJ2tRCLy mxmsBJObxB3qXOPmxPMg iQpwFF2xJRIvcwgsj816 AiCsWMN2QHZlfUZeG2Ye vK0wHkHsZXYbBEUs A2FhaUCgBVdoJ240ODct PxD1RTPkheNlF3XwBHOm jVayDbM0m9I9Yy93FWTK ZWFyczwvdGQ+PHRk VKJ1vChbWHliMHAjkB8m ZTUoP7o0XtOlGyP3JSdz H8WnTMCcghzeCk61hO3b IyGsIpM3FYtgE8Fu epN2GFTceIVrDAwxAMH9 J13ln9L8UKQgWDNqTTP2 hMC1tK2wcCplpfbfhDEe dDsgdmVydGljYWwt EXpnC098XMJflEvbMr6X VBM1U4BhJkb4UMYgyUlr NF6bsZHwUNgmHj7tfObz uZmyKC0xBHCrthkj DONokD9eQXQjrJYouGhe HK9kEOYqmtfdt893ZdZz GBW0OZIgdOJaK5RdjK9o UiXwAJIgCZCwM8Zj eYUnTWscC770MFzjQwJ1 FEUafgGpE3NjXUUorLvk IqU1m7G1Fb8SAJzmeTQ+ YZ66xg54B5TpUeir Uwz2TYHcFJA0mSF8jJ2a TCCwCFdyw7E3aYL5V6Ys kmItkw6ng1dcAWLcKZno E87fsYFop5C0RRMy oSF1CYJpdHapQvBuhN99 Oyc+KQSeaXlbn6QzUgzj e8gpw4sdrJt4BmHqXNOt mvElfFhwGDI1x0Cf Ij44D87cTTkeAEIyMYNz YPWlHLNcdWtbcm3gtR7m Ii8+CHKvgSC7tAN3eA4p NoGfJlE7CGkpZ027 OzHcqVDqHtrob9fve4tg jKj2GhCyZBWzfnJonKpa UEC0q5DcHg30B3MtsKnk s9OrAzd5of85wOXz q7S5mXT9P2ThALKztsvb sBIvzXtjZR1lGERxqlig RBIlmB4jZHOoQ8u3HpOq DvQ8VFqbG9UubkD6 IBVtwUYhVBEhcQLLzT2z klbkx0ydwfvyKiGwBGOy HMe6YKd4DFEjoShnWdGa PJZ4KpP0HWI9eUDp qV3gmOimrkwxqK6pZpd+ NZs6h3zndKXpRJ5ycWC2 ZO22UC58cSFqf3W6nZA8 Y6BjUUYskwyqbcyw iSC3CHVsXSFinV58Hj9d aKvpUg4cTLMeBWD6QKUr oATqS9BmyI5qCoWsRHMq QGLnW0ZbtJBuBPpg N319RWsrSjC9JFIjfmDf C6KuGXPzyZfyCpH1o8K4 Bs4IIX42WY78YX62gVLw d2B6mUE6X5GbYKEv znrszxnetNQ6ZURtJORi aT47Yo3wdWjxRd2dPXRe GBP3UWSowQQgL3TwuC6r BoNvFJFfEIPpF7Iy eGZaGFwpN051TWlnXtG8 QEHxmpEjM2FfFBOvvBkr MxB5n4Z9Cv8PVv32TF29 QD59nPDjd5Q8dEW2 M3UcOBQjsaicaqrlkJW1 ONZuOGCusG83Cb0kcDum Cv8jTSDaHIH1NPCwcDJr S1CuwG0xCoRcIHDx POXcN8OlqAIeIMskM668 UHioAuP9QUTfqwAdR5Wm QTOocXtxYlX5e2O4Js7X SBklgzm8B4LiWfcs dHI+QK10GDSiSD70mGVh uSQhw0vnwUb7VyJsXFBp SDU8nBapQHclm4HmIMOv C09muANmr7W5VABe bGx (more content not included)... [facility] Coding Summary HTMLBase 64 IrndwowiWFe8bYl+PGhl YWQ+AM6HOYTjM83vjEQy eZ5sR0XXIVhOEoisBVJM IKxWTfCrfySdXN6izRGy ZXJu IC8+EH8fOGFoJqxyxQGz l7J9dJE3U97yad7vDWmv cOI4WOLoOfGxpddpp1am pLl7UGfbKcsiCvWe BVVbsX79QYU3jL38Eu33 uLZknYSiv1wgeRb6FrOt KQQoYDY2uWoeHPuqp9Oj QBXqR12rxJMtu2A1 IGNvbGxhcHNlOyBlbXB0 uT5dBCtvxvgax0tquzoy Zrx0hx09zDUzr3X2zHX9 B9DnonH0ESHzrARh WtvmcIGEdZ4wbedss2pj vhnnEoZxATIpKUe9HEg2 MQCfiYqtJdHrAD55KZE8 AHTqrmSzB2LgZPPq mNrbHoN2y5S4Kk5UH4ED CvdrC7LUHITQWAejuWH+ BO32dd33W9UqIwnmAjm5 UZQnMPA7iMD2xA5d TBWqNEowh4K8hRT4R1Cg ijQaak5za0umEHFcOQkp U53faFVqr9Z7KCYdfIM3 OGIdvZmqVdMcyO00 Oyc+OTAqrRtrf7CzPkjf l4all6dbnVc3YrsiRQZe emPdhYyxISK4m8MxHx0i ISZlvQV4uCS6fW2f RxArFyA7PWveH737IhUp gREsSpzgY00pR7TbzJB+ JFIdPsu6GCJujKpePF7v S6TzUKNvgehysODs zVvhMF7cHVSnkhfmDUOh sW0kEMTeS7u2BeTbHvF3 YBxbZ0UfHUPmzkckUo28 lY0oEfRkNrO1VIeq E8XngeV6UDEdaOBfHAte FRZ5X34mg2P8CPUhENKs KZL5mGP5sO4loKntocga bGVmdDsgdmVydGlj ZEmnETdbG252OEWejWoc PkNvZGluZyBEYXRlOiAg MDMvMTMvMjAyNDwvdGQ+ OHRxNEJ3sKrhNIFf bFKvGFybUu1mdUjrmVvr XT3iUPRlgnikYPFqcD8f WDGnwNDhwQuqTG2aGFKg vbcvg495ZnXkXNW4 NGBonGPpL9HowS8pRuUo GPSfVXFnP0EwqJQhJBks H710JWbpZtJ2BYDgfpDk F7WaIDZjtQciBiY2 j9F8Yv0Rt2WhuubbL8Og iDQkFbAeXslaBOh5G4Gu PjwvdHI+AC42NTNkYE74 DRq2KGT4kFomSRya EIJmY4ZkfG6cGqQmWHDs ZGRkOyc+PHRhYmxlIHdp ZHRoPScxMDAlJyBzdHls NX1xAb6pXODkWTIy pArhsLKnLzVty5kyIGWp OMvxCK2aoDvwS1BmqTB0 CXVaz5v3Pw43O73bP4Nl dXA+MUBhwZD0gTB1 aR7dVsLwPuE9FGspZ662 ZbKfjUZmWuosq2yzw8eg gWy8HtD1QMUmxzKdzHor BQL3q6EuAz08L69g IHdpZHRoPSIxNSUiIHZh nAotik8msI5fMb6+PGNv iHR5oKB5cS5zRpGdRqP9 QCepN356TnLafFZb Ezdwv2jlf4mgcSd2EeLq EPZliqSsuWbgZLP9l1Lk Mk74Y0XrwYtmm2PkOlg3 bf87nNOpw1Z4oZN9 Z5VePBKrddjzaTQqeFzp OS7pZBJxwfdeKUCniX2i DOGlA1d9EzTrIqJ7DPgb I0PmmhW0TVGvwZGt DIDewMFRsU8presxj8kc iwvuScJhVFLyEDx7RAb2 ZTPjyIpkWpJbPGM9CpA4 XAP3vPRkrH6kvNea golvzF7yCky+GBI9xNAp sUKUWS9zWtpguYH+PHRk AKN6pAbbXSlzWDPswV9y TGQcE7n8OwEbVvJ8 ZLlxR8RuzkA9UYJmnMFn RPQxbYYCeC8coiwlh4ef coroNiEhBBWuZDr3DXm9 LWFsaWduOiBsZWZ0 XqV8YPJ6vBQnwX7vzCve btmqeB1xZiu+QmlydGgg ADF3VUz5V7NdFtm8EOZz nXhrFW4xmJPvGNjc Pw7ozXzicYngMP7tZNVd tqjek732HvJev3khHITh nNTbTCdwJQZ8D96qz4J1 GIKoQMJnMVK0zMN0 hA4erOfmodytpCKumIox dyUufZviOTdoUUsyA236 SVDilLcaYfNjIFt6J2Or Azm6ABDziQzdEN5r nECrLYssUe2ukUcmiGmy CN0gEQXfgyckm885NsOa y1goKZAaoMUxJLgzYZJ4 Q02ln3D6HKQlEHYq DDD5iSX2wQ9ddVfepbux bGVmdDsgdmVydGljYWwt WZpnE161ASQtlJrmTfBa cCm9P9CdMiw3BLCp eVmpLL4owDGsKGwnZy2e jApduDorJU2aQMWrjkdn t420DjAxp9ncHFRhrDIa JFgoCHC6P43cm7G9 KZZqOYViPXV0lAB8cZ8c bGlnbjogbGVmdDsgdmVy vXjvABuiNAdpV576PBKl cDsnPlBhdGllbnQg QOhjXVi6F1RaAwpjbAJ+ JJ13MKOcHX97fJNazNRy b4szyBs2SgCxIEYiZGL5 tYsqDPzdt0PgOUTi T29jpATfk6I5EOOzfCmv qQYlYkAlfAO5vA2sFIol haisd4vdpbykNjbpe4gi iv55cJ72O21dPMgw ZHRoPSIzMCUiIHZhbGln tx0sxK9pAh2+PGNvbCB3 kGK4dP1nOERkSdW4CNze L509QdPpxKDsSohk m6grr4hgsNq4VpN6UCMd avOvlSwoRTQ5i1WfUq23 N07eTMhaVCMbOUTvLDKe TMQoaQztdz3gyL0w Ii8+DMVhuAC8uUL8oZ1m VrPiTaJ3LNjiY479HfHp tAWpQpccL93xN8LbtWB+ QVHiFrr5UAEbtRwr DM0tyBMxGOokQo6fFLI6 ShXyWjYhMFofA7EbWOIq czkbtwqrnVE4XMItSIHx hA37Ht9hgQswGUPc aQMUyV1drwnjc1asdozy AnPzIBApLQm9XWg6UDPa wIfbNtJoCYD1RoX5SFF6 bCHzzU4jrHmbjyav tW5cK9GcVSJhpqxgSw16 iY3pQyYxIeE4MWktWho+ C2JPVpilVJ5GG1zPTOka SzwvdGQ+PHRkIHN0 qTzcTKfgIJXyqC0lIKZq L7b4QgJwRaN9CBxwY4Ze NCQidheiGf80vJ7lTmEm GcQ9OCehT7HaksX0 MDQzgGSbLKeiUCO1H73l h8S4MLEaWZKjPZQ0xYF4 uI4cpMmvfvlniSZpkGcw dmVydGljYWwtYWxp M095AGGukAiyAuBlXnN7 WtM3FsT1T1WxWpy8YTNx pVomUF9evXEgQLkcLf5o cPljsCrgNN0zJZSx ecdiCQFksM9hMANswDLz bVluLP1mKTJycnrep182 RlXfQHL7TLMfsEIpX9Ku iH0pQkIzPIJkNRGt S7IsfIGmFSfoI730VLzp WrD6PEZbuuRaQ3MfWLHb uCplSfR2v3J2Gy97SUQE ZWFyczwvdGQ+PHRk SWA0fJisDGecRPPfoL5e LPFaM8q5YiEwTdX4UFty C2OjVHOrhyydWc38zU6g LdHxFiC5AXutS4Qi flA4AYDfpLFeIOdzYTM6 R04ex3U8HRGjOUPzUIW0 vCN6uR4ovJhenojoeEHr dDsgdmVydGljYWwt ICodG041RONqcUndAr8Y OPD5X9AuRun3OAEuuHns QS7quWApXXiaWy7nxKeu dIfyAT8oJSRhrfrf JLHgaC6xYJAnpLOyyTqm YS8jNYNfjbltx204CgMu TQC2FIAtqLFnF7JveL8i RyWhWJMqZLWdX6Rc aNWaRIwyF377OOqeTvV9 CXAvscBtJ6CiPAGurNij XbP3o6L3Nl5JUYqptJQ+ VK59jl00Z2CsBbtn Awb3IRWhFRR9hTQ7aC9c BTDhSYzkz5T2yYX0F3If mgDevt3fu0ljGVGbJRgm R56cgLBob5I4ZVIp fNN0NIWqnQxsZtGtkO46 Oyc+QAPgeVlgo8BfXmsm v0kiz1nyhPi9MpPsABQx fiZwqWheLEV9f8St Zu54U50fOErfKGTvKTAp YGZmBPRloJrikc8ueE9l Ii8+LCBlbKI7yJQ3aB9z PwUnZnR6JSnfZ103 LdNwpGItOoany9ypk6tv iKn1HiFuAREuigXeeJlz PYA1y1BcJh19S6ShiGrz t2WoTsk5vx91xKEv v8I7tAG0H1StJIGkzdxu eODyuGjuLT0jZTEbbeiw EMVydA1lZLTsY7u4SrDp GhU1XLpmF0ZxxkE6 HLQqjBCdTENnlXKLcL0z mouzn6navszdFjRjKJUj PCf7DIa8TVMlwEzlByYj TFY4RoB2PDQ8uHOk iF8vuNkzfxoybL2wNgh+ XBp6w5osmUGsFU7ykNQ9 FZ11JZ49mABmx5Q8wLK7 S1XoDXAaywaubktr yOJ5EMWmMSDsvP55Yl3z lNmuHl2lPIQgYAH7JFRo iSEjQ4KciZ2zDrVyHDNt AACmW3NdfPHhDCzq X323UKkmZbC1SUPdljXq H6BwYNJouDblVxJ3s2U2 Mk0QIA67HG83YV44xMCs r8J6kDR6O6JmRESn pitdclbhqOO6PGBiYXUy dR22Ax4zfOydZj9tNMRo SYT6BCFbaNPaH5JetE1s BaQgJLZqZSZnU9Ju vEJnVVilU601CBirKuM4 KNJyfmYrC9ApNTIlqOfd FzE8h6D5Jh9OZw44ML92 WR13qZYza1W7bKI2 N7LrHHQhgujowcopbTY1 GUGzIOBfsS97Cn5dnKwe Ga0pAGNgMFX1DHGdoFNr P7TiuP5yCfEkNQQw THDvE1XjqKYlHFliQ703 WVokBeA2BTBryePlK3Yp HKRttZufMqN0u9U3Hg2B OYbksqv5X6TqAhii dHI+WK62XMMyMB19fQDs kYMez7btqDn2LfYbVHAd ZEJ4lWslDLwxt8IgBUJm H58cePFny0Z0NFNd bGx (more content not included)... [facility] Wound Care Noteon 07-15-2023 Wound Care Note [id number]#1 .00[facility] Consent Formson 07-10-2023 Consent Forms [id number]#[facility]-10-2023 Outside Records [id number]#1.00[facility] Coding Summaryon 07-09-2023 Coding Summary HTMLBase 64 FsntpxtvSVl8uKv+PGhl YWQ+LQ1CCUWvX23vhAJy eY9vW9AJKJkOXjlsJGIY CVmOIvMonrXoLN5qgHOk ZXJu IC8+PM8pMCUsZafxdSAg g6R8iKQ5V75hoq1zGJrp rHU1KZMmGnAzjjizp1nx rRb7XCnaKkbgOgDz WHXlcA95TAH4nE55Jm52 tWQweUIaq7jyqEb9YmYl XPKzGBG5mXjlPOzjf8Lp AHMvC98qvCUpv7P9 IGNvbGxhcHNlOyBlbXB0 kH2tFMrwtcsqy3qizsny Unj5wp59oOMwy7E1cMI6 G2XcehI4BQKboPVf GpnmqYNCpT7lfbdid3cz tbhkCaCaTWOvHEd6KTj0 ASVjbLpdBnRmFK95DPF5 QDTgfpYbM9GqEFYg oWoxFwB8u9F9Tc8MV6WF PcqvM9EVPYXNXDdnkKD+ AO41pu84F8ZoOdfdFxo6 YBJrSQA9jEY2cV4h QPPdQWheb2X3bHR5K9Ot ncFtur4fl1seFXNeIIjq L73uzHXts8I3QVWcjYI9 KEXljKrnPkYunB20 Oyc+AORtnFppp5FuCnnm z8ksz7uixAz0DbmiNBCu bxXszBhnEJN3y5NpOj2u KDLayBF2kWA2zN9m SrNvIaL2JLkrZ623BvCx lSSkAiseT81kM1DzwGI+ JKUsWub5NHRjsYtzAG9u D1RnEQKcqsqinAOq nSjmJP0lFLXuwifpHOYp zU9dQGUjU6r6KoZsVwC1 DGrnM2BzHRJymfknWu12 aF9eWkUwJnM7ZCpk C4QqxvO1LNNpcVNiIJls WBM5Y57on5F0RNAtOKFy JIP7aDA1oK1fgVuocucy bGVmdDsgdmVydGlj MHreZQpwO388QFVyrXao PkNvZGluZyBEYXRlOiAg MDMvMDUvMjAyNDwvdGQ+ OJBrWIY3eWpcMXNm uQMmOGqwTo0xfTafxMru HR0dHIHihnhhUEBejO6b DYHjaQIyiMnkIO8dZLGk hcsmo482SrMoGRI4 VKBwsNUqL8KgfT2kUuEj IJMoVOHtC1VdrDSrHPaf F407HAwiQsG7ILEnkvQa I5RbFZWghRbgNmW6 o1Z7Ic8Es6BzodngP1In bSMoVsUeItjwCRr3V6Tb PjwvdHI+OB25PYQaID76 GXn1HFO5tTbvYZjf FWJsT4AbeK9pGjIiLJDg ZGRkOyc+PHRhYmxlIHdp ZHRoPScxMDAlJyBzdHls YU3iIu0sKQMoVPOj vHtquVLhQqBqq2ptFVGt DQibFU4ieEfmZ6XjlXM2 YVDfc3p7Nt01M13wR0Vx dXA+MVYkbKY2lOP2 sS6iRaKkAyA6IBaeC373 FfFrzBQsNairb5mlr9jk nEo8VjO6GXDcpjKzmPqe QPT7n5LnKb59A75h IHdpZHRoPSIxNSUiIHZh uRrnyd5wgA5pBh7+PGNv eBA0jJE5zD9wKjWqEtT5 YCvwY214GaYyrMKs Eozrb4aon6dteJp2YrPa VSPxwlCwiJhxNEP3s3Nu Ww07C4VeeErzq4ObUuz7 oj75zOLyc3F7fXB1 I9TaIFBtbbxtmRMufBvz BU7tWJSshqqaYLZzlN3a GDDxI5p2PkCdWpU3RMiu E6CatxV1UORmfNOa ZUBbsPZZbJ6rmwgqf6hd vdfkEvGlELUePHk8YBn7 VZVtwSykLqNpBJG6QiV3 KCZ8vRSrcS2zbXok ateiiI0vTmd+KBR1gWSj cVGAEJ7tOozkqVE+PHRk LCK1uJthEPakCXWnbA6r SIMcD6c3XwUoKzD4 RPoyO3CsjmS0FXUxsUIm EIPmsWQEeL7sokknm4iu hfnpQnUtJWAnKNl8TDw7 LWFsaWduOiBsZWZ0 DjL9XXP9kURoxS7evGpy lqrbaM9oLxo+QmlydGgg RNC5OWi6M5DbPkz7VFIj fHkxZP3qtLCoCKuy Bh7ugCqslFvyKA1qMKVc pcekk496NdFnx7wmADBa zJPlAIsjCNQ1A71fp2T9 RTSxYSEtUPY9fOD4 cX2riNlfwvukuZGlfLwq hvFifFzzIHbkMGcrY255 FHDgaAhmKgOjJIk4X1Rr Vlj7ZVYjzXekXW1z fZTfAFbvMj5ftPqfeXdx DU9fJXNqbxevj154RbSt x6qmRBHwkVQiAMbxRLM3 T68qi7V4GVBgPTBa KGD1mHT3mW4nyOufuiwe bGVmdDsgdmVydGljYWwt EClpQ448EHGhqXojKyJe uAs6S5YsMmt5OZXu xQmnZJ0kiLItZTwpZa0s qBoubTflNK5wRNKxutab u978NkLty1nqHFJrrQSn SMgvVAS2E16uq6M2 UQJpUHPcZUV0sAM6kY5y bGlnbjogbGVmdDsgdmVy zDrbDSzoAAcnK824KLHz cDsnPlBhdGllbnQg RZjqLEn3I3UmIqizsGY+ PB90YZDwGQ63kKWwwKBe o3uoeDg6VqPgNPHsNYO7 gIalERzcb2IbUZBj Y88upPBps5D1TSNdtCct ySBbTqThmMA0pO1hXUrc jgfxj0rvehqlDooep2te wn81xF98X97cCAtx ZHRoPSIzMCUiIHZhbGln ff3aoX5sQq1+PGNvbCB3 wBP5oL9hLFUgYnU3YNab K856YaYbqQPqItrr d4uhr3kfkJg2XvB0AOAv npUytVljSHQ4m5TkRn87 Y29cRBdxRSLgTQGfLGEu SAOhkGczzc8rsP2q Ii8+LSTweKE8uFP5eL2j GiVtIvA0PZnbG754VuCr mRVeAfxkJ70kP2LxoOQ+ RMXrBpb1XZXanPwu GR8eyOZcIVmiBn8lHUU3 IaPwAgYqAZrvO1KaBHQq fxgwpvqsuLR4DDGqJXBd mC38Af2qaYpgBYDn lSSRnP4pmqiio5qhuggn DpOtTDOwYTq7LFc9XJTp hYprOzXkFBP4YlA9SKX0 pHIvyC2ffDwveaeu eX2mF6UeUOMhtkiaZl30 iT9pTfEkPnJ2SYxnFma+ D4AUEhppOG5PB6uEGVuu SzwvdGQ+PHRkIHN0 yIabBFoyOCMngM8jMWLz H5a3VoMmYaI0SPutC7Tr BELiksnpYl23oP3nCbCx NnP6YDmnN3QejjN5 PIMkiAOfQSdkZCX9V01t l5Y8EMJiKFLmBWH6zRR5 vG8fcAnsoclybOCxiGqi dmVydGljYWwtYWxp C082FWBvoStlJlGsSsX0 SxT9HpZ5V0UhDjt6JAIh gZdeBJ3edVDgTWgdFm2z cGbakPcbDY1fGFCm xchwXZXwhZ2oKVDynLCg bHfpAY5zIUCceqcrf055 UzWdLYH3GNHjxDWaQ4Az dS2cWeYeMJEyILNb B6XneNMlRPpiF438QVlh ZhV6ATQrxbZrD9JyRWEe zJctLpB7b4E5Nt57QLER ZWFyczwvdGQ+PHRk FDB3mDtmWAdnANWuxZ5n WSVvA0h8KuJiViT9LJsv M1LoEDBzdxgnSl88sK8t PiKxAyH6LOfnQ4Wm duD9RRXkhZHkLRqePYV0 M47md1B5NZGaZGUsDKN5 lCM1wJ6hwLgsuzqmfKNk dDsgdmVydGljYWwt ZPjvZ133GPMwlMloJk6Q YZV0L0UmVun7FAPwxQln YC8ovNQmCSkjBr1oqBgk hYqjBE7mIELsyndl NUCaxB6lFSDotWRzpHhy QS1kZMYomoowm720XjFi RKL0AHSizESpQ6PjlN2v MhQcLURwIEKxB3Fy eKIaHTbkA217EBaeEiM4 JNQdcaSvJ1PvCTFooLcq SzY3d2E9Lh9JJCoifYE+ AC63uf14O6InLmgh Exb5ZXGzLND6yWM9dZ0d QCYkIPncc2W6pZZ8E2Kz paAzhv2ro9zhQXYcXTlu E14reGDab5B4QSVs uXZ3WQSryShiLdCvbS07 Oyc+WMQwnXqme8MhQada c0cmq1qqmFy7BoCmWXCg fmPjlTqiZVX0o4Ta Lk92J50mETtnZGJgCGKk XBIdSXDefIwpel5zoN0f Ii8+ZFLtnBM3tXB2gU3v ZbOaSjV5WWitV950 CsReiYShDmjtk6hoc8cu qHx3QpJpXHPskyWgsSaa WXU7i3ZsXb39N4ZbhVcb w4LiHds3gn31oSTu n8E9qGU7T6KeYHHfdeeo mXBpkFoeAZ4bFBLgpvic VCZmgR2eHSSqD3x1OkBp KnY4TZooT6PdvhR7 KFEwxTPlWYQdzSVOcP6o voywt0ouzuoyQpLpLFBb QBr7RQm3KGWojPvhHxYu XXH0YxC8LBM0lPZv yZ7hyInegnnxmF9mPrw+ RVj2n6obkIGwEH2btZU2 QQ79SS49uKQro0F0bMK2 L7ZsSCCnigskzolw gHX3VIWfTTFslF84Dy7j nDxbKz9nZAPwOYO2SCOi dEOiW2BgoU0qDdBdOKDm LIYsR5UwwUDuPPqc I490TPhsWpH8GZShzgZt Z5FpFQOenMnpZkY1x5L4 Gi7ILA32WW03FT46jRCm d8I9aEC5Y5GjSNVx ffcplaktpWE3SWGpUXKn yT67Xe3xxFmbJl9fCZVd IJF7VNYcfFQbM2GtlR2h MuYsSJMaZOZiH2Li rCYgIKigQ858WKxhTxI9 AUGbtpShA5WvQWQowUya RqX0p4Y9Gf9CWa34BH41 QH55iRMvr8Z4zSY8 W8VaTKOgqwdivvyfqNZ5 PHDlDFYfuB36Jh6mtIme Sx2iCFGyMRI1SDIcpVOx A4WlaS6bXsNaTYDf UXZaS8CnhJFsUPtmS568 DOjjYjX4QUDshfWvA2Nr BMPjmEbeUoP6z2H3Sv9S KCxnqdx4N4VwQasc dHI+IF83TDTbIC88jEGq aKGew7ifvBm3GeQlKEEw ULL4tXgoFNvkz0ErVAAe S84scSJta4W2YJIp bGx (more content not included)... [facility] Wound Care Noteon 07-08-2023 Wound Care Note [id number]# 1.00OTGTIFF [facility] Wound Cultureon 07-03-2023 Wound Culture rt [...] <=0.5/9.5 Verified Vanc S 2 Verified [facility] Comment on above: Performed By: #### [id number] ####[facility] (DEFAULT)[address] [place] [address] Ambulatory Patient Summaryon 06-26-2023 Ambulatory Patient Summary [facility] [address] [place] [address], [address] - Visit Summary For YRN RICARDO Age: 63 years Sex: MALE : 1960 Address: [address] [place] [address] [address] [facility] [address] [place], [place], [facility] Home: Work: -- Primary Care Provider: KAREN ZAPATA, LESLY oT Race: White Ethnicity: Not or Language: Bangladeshi Health Plan: 1?[facility], 2?[facility], 3?[facility] Reason for Visit: Three month follow up [...] contact the [facility] 26/11 Crisis Hotline -Text 4HOJD gu [phone]. Follow-Up Information With: Address: When: KAREN ZAPATA, LESLY To [facility] [address] [place] [address]/[address] [place], [place] [id number] In 3 months Future Appointments [facility] Appt. Date: 09/25/2023 1:00 PM Scheduled Provider: Lesly Melchor MD [address] [place] [address] [place], [address] Future Orders No future orders Additional Goals [...] Dosin.000 kg Body Mass Index: 50.14 kg/m2 [place] Body Weight Calculated: 84.047 kg BSA Measured: [...] is caused (more content not included)... [facility] Patient Handouton 06-26-2023 Patient Handout Infectious [...] and keep track of them. ? Take arxn-bkj-nwrzusn and prescription medicines only as told by your health care provider. ? If you were prescribed an antibiotic medicine, take or apply it as told by your health care provider. Do not stop (more content not included)... [facility] Outside Recordson 05-15-2023 Outside Records [id number] #1.00OTGTIFF [facility] Device InterrogationOrdered By: Rosalind Murrieta on 05-14-2023 [facility] Radiology Study observation (narrative) [facility] Ambulatory Patient Summaryon 03-26-2023 Ambulatory Patient Summary [address], [address] - Visit Summary For YRN RICARDO Age: 62 years Sex: MALE : 1960 Address: [address] [place], [address] Home: Work: -- Primary Care Provider: LESLY MELCHOR MD Race: White Ethnicity: Not or Language: Bangladeshi Health Plan: 1?[facility], 2?[facility], 3?[facility] Reason for Visit: Three month follow up [...] problems; contact the [facility] 26/11 Crisis Hotline -text 4HMPM pb [phone]. Follow-Up Information With: Address: When: LESLY MELCHOR MD [facility] [address] [place] [address] [address] [place], [place] [id number] In 3 months Future Appointments [facility] Appt. Date: 06/26/2023 9:30 AM Scheduled Provider: Lesly Melchor MD [address] [place] [address] [place], [address] Future Orders No future orders Additional Goals [...] 3 m2 Body Mass Index: 47.09 kg/m2 [place] Body Weight Calculated: 84.047 kg BSA Measured: [...] BMI? Body mas (more content not included)... [facility] Patient Handouton 03-26-2023 Patient Handout Nutrition [...] numbers. This can be done either in [place] ([place] or metric measurements. Note that charts and online BMI calculators are available to help you find your BMI quickly and easily without having to do these calculations yourself. To calculate your BMI in [place] ([place] measurements: 1. Measure your weight in [...] for Disease Control and Prevention: www.cdc.gov ? English Heart Association: www.heart.org ? National Heart, Lung, and Blood [place]: www.nhlbi.nih.gov Summary ? Body mass index (BMI) is a number that is calculated from a person's weight and height. ? BMI may help estimate how much of a person's weight is composed of fat. BMI can help identify those who may be at higher risk for certain medical problems. ? BMI can be measured using Bangl[place]hi measurements or metric measurements. ? BMI charts are used to identify whether you are underweight, normal weight, overweight, or obese. This information is not intended to replace advice given to you by your health care provider. Make sure you discuss any questions you have with your health care provider. Document Revised: 01/13/2020 Document Reviewed: 11/20/2019 [facility] Patient Education ? 2022 [employer]. [facility] Outside Recordson 03-25-2023 Outside Records [id number] #1.00OTGTIFF [facility] Outside Recordson 03-18-2023 Outside Records [id number] #1.00OTGTIFF [facility] Outside Recordson 03-13-2023 Outside Records [id number] #1.00OTGTIFF [facility] Outside Recordson 02-11-2023 Outside Records [id number]# 1.00OTGTIFF [facility] Ambulatory Patient Summaryon 12-21-2022 Ambulatory Patient Summary [address], [address] - Visit Summary For YRN RICARDO Age: 62 years Sex: MALE : 1960 Address: [address] [place], [address] Home: Work: -- Primary Care Provider: LESLY MELCHOR MD Race: White Ethnicity: Not or Language: Bangladeshi Health Plan: 1?[facility], 2?[facility], 3?MED[facility] Reason for Visit: 3 mon f/u Prescription Information: If you have been given a prescription for narcotics, seek immediate medical attention if you have any difficulty breathing or any sudden status changes such as confusion and sleepiness. If you or anyone you know is experiencing suicidal thoughts, mental health, alcohol and/or drug addiction problems; contact the [facility] 26/11 Crisis Hotline -Text 4HOPE to [phone]. Follow-Up Information With: Address: When: KARNE ZAPATA, LESLY To [facility] [address] [place] [address] [place] [id number] In 3 months Future Appointments [facility] Appt. Date: 03/26/2023 10:00 AM Scheduled Provider: Lesly Melchor MD [address] [place] [address] [place], [address] Future Orders No future orders Additional Goals [...] 371.897 lb Body Mass Index: 46.73 kg/m2 [place] Body Weight Calculated: 84.047 kg BSA Measured: [...] day anxiety, 0 refills authorized nebulizer machine ([facility]) 0 refills authorized Instructions: one machine to use with nebules [facility]patient [facility] ([facility]) 0 refills authorized Instructions: Wound [...] to displa (more content not included)... [facility] Patient Handouton 12-21-2022 Patient Handout Orthopedics [...] walking or exercising. ? An inability to mingle operator items, twist your hand(s), or control the [...] aerobics, that increase your heart rate. ? Chuof-fo-bolmbf activities. These help your joints move more [...] above the (more content not included)... [facility] Coding Summaryon 12-18-2022 Coding Summary HTMLBase 64 UjksznvvLLv8qTd+PGhl YWQ+CY3IEEExV11tuTYg aK9iR7RREQjOZvvhOOQC PIzYAxFfoqKzAT9omPFz ZXJu IC8+OH7eTXBjVmeabIFs b4I7xXM8E72qvk7wULbk dAI3OXBxWqWsgyqcy5xf oDb8QOkaIhxdFvCj QDBavS75LBX5kQ66Mq88 yRSdeHMiv5ayhNp7JrJj RWOcQQE0hUnvYZdeh1Ld YJWkV93huDBts4U6 IGNvbGxhcHNlOyBlbXB0 bV0eIEdintpnp4kruyfl Frd9md56wUMko4F7dHG7 U8IiyoI6NUEhbPTi RsxrwTJVfJ1zudbue4nd yjgjMuAqYCAvVMi8SRd5 LETvhCmtKrLnRZ88WOK4 UXJvkbWvE4JyDEAt dXmhNwX6l7E7Ar6YL9EW VgmmA5TDWZXLVBoroUI+ FK40vi24L3GzEyozMut8 VSCxHIB8xCS4xH2j DIRmROhia7L1zXA8V0Ku wfRoyx5br8hhQHLkLQne F05jxOKxx4Y2ISMxeFV5 YLYcwKxdTbLryC70 Oyc+UKVbiMrvt1FyTerh f0cuz6asmWr1YazhOCKs vvHqhEtoWBC3q7OaCc7b CSIrxXG0yVA1zI6z MdFjScP9KUhaR518CbTp oJCdSempN38gG1WkuUI+ DKFqFql5GVMmkBiyOS2a D7UbYBShhfjzzZBn zFdgRJ8nWAXabkwyCRQe rO5fLHPzW5m2YbHeUfH8 UJglP9MeESBncoqpFx03 aK4lXjJgZvF3OWpt K4BmnpO1OJCxpQRmUZvy PPU7B94vb3X4MBIaTDJa MTZ5eVM9nF1dvHwislqc bGVmdDsgdmVydGlj TPlfMPuoS507EIWypFxe PkNvZGluZyBEYXRlOiAg MDgvMTUvMjAyMzwvdGQ+ VSBrVLP1uJfaPHDu xCDnEAosQy8sdJcicHfb NM7uQCMrcbhlMMCzbH4j DPJxaERlmUcpEI8fOBHh bxznc646HlJsSIU6 EMUzvXQqA6UoeG7bSnPl AJLuVZRtW4DueRAlCIvp G008URvgFvA1MDFlwwKy X4FiFLQmuLkzCjP6 v5Q5Fu4Jd5BaacuyO3Yb nSKiLbZxSfxnUQz5J1Qm PjwvdHI+KJ82HLMnYS35 EJs5ZLG9pRkbIBqp KYInI4WtnA7hXwTrDZTq ZGRkOyc+PHRhYmxlIHdp ZHRoPScxMDAlJyBzdHls UW3vWo1nMMPoFRLq aZagzUKwUrPoj0erVGRm DCklPE7uwTneY3IexSE9 DIEfc3x3Vb72Q35kS5Xh dXA+DAAzzZE3iNZ7 qC9kCbXxQiY6JTapT316 SpCdkMTkSuujm3xnv0ex cIa2ByZ7PZCwvkIwjFtn UMR3r0LuKu55Q71m IHdpZHRoPSIxNSUiIHZh bNzlwu8wiP9cTr5+PGNv vPS6jYJ0gF4tBdQpViB5 ASlzS660OtOfhNVo Xqikn1nti6ntgSj7DdPh XARbqqUvyQydKQH9w7Vn Sa65Y6TifHqzh4MbUsx5 ug76kNNxg8P1iJH2 P6DpNUFxmzntnLGyhRel OX2xPTNboffwFUAjrK4e GMKhU6j8QrGwUaP6LWqd K2HhohC7DEGxuKSz DSRimINMnM3zkppdq4ck bdofGmPsXPGvYEa1JUi7 TMZggZccBjGiGAE2IlE4 LQX9fHPgpY7jbUvx lhkboI0eRwm+GGN2lARv jFFCKZ5zUmzgnCW+PHRk RKX4yVatBTefFXWzxX2z YJUhJ7h3OmAnOnH4 JAuuL5VlqfF5GIUmwOPt GFQynYFGbW9wbdyjn2wt cbghEvVhEVFeWRu9ZGd6 LWFsaWduOiBsZWZ0 AbP3EQF0qERckW7igHjk pnngfO5bYol+QmlydGgg PQN0SZb9V7OsGtu8SPEk qXboOE3jyGKiQKvh Pk3xkAfabMzbYN5pBPVo fzegp191SzYph1faHETi uFMfISiiRZP2O53mj7F9 JMRvUTPdECB4qZY6 qS5gqUkaybzsvWSgeOex cyFycZsoCOdhVKpxP704 VFEyiTudPuXiIBu4D6Kz Koy3UXUqoBxyBO3g yIDvGZowIz7nuTxelAha MP4wMAEcinszh003YcQi b4rfKUPtkITqBIhpSLJ5 H42ya7D4JXIzWAWk IMB5iYN0bZ0ipQkmebjo bGVmdDsgdmVydGljYWwt CVcqI510TTZdeYizXnXf eBc8A2RqHhr6VJZo qDqiZU1moQTbZUrbUz2z tTbjgZbwID7qYQQysqog x882TiLfq8ltSYAvxIAn SOvvTHN5W40gw9G5 RUJrOJJxTGV2nHN8eD7g bGlnbjogbGVmdDsgdmVy rDpvYBgoTGbsE951RTCr cDsnPlBhdGllbnQg SOnuSKt1V0AfEltfjFQ+ ML60TIUwGL74wIHkeLAb e4cijDo1UrGzOLNcZLZ5 gFjxCQcoe6JsHLPm G66kqWTwx0J2YZFpoQxe iQRfOeJqbUD2kF3tOUib utqpe1toijnjIdyje4nt xn75wR55M61xJLdq ZHRoPSIzMCUiIHZhbGln of9olK1gJl3+PGNvbCB3 zWK4xN9wBFXlKzY8NBxj M480RfYnwJVvKqnp o3ybn0znqVj3IlA4HSOr giDlpGkqQNY7w8HlEr59 B82aAHcrPTTnUDPvRUEc HDDcfShhea5ogZ8q Ii8+RGTeuTT1vMG2qY8e EgLnNeA0FOsmN943XgAw zWZkPvzvA43yJ0PbkNW+ ZYVmGkm1NOJlcEkm CI8ldDAjPWlwZr4cJVX6 EeJwBhKbFFqqX7VmCPAt kdabwlvnlMS3NWNfPNBw tV61Kf0qnGyaMWRr eOWMjJ0nrmuvv2csvdke TkHkKHYyRPy3AAr6BRLc fPxzLkUbRRF3TxN4CCQ3 lLNtsN2viHehbdof qD5mR0VjRUZsnmrfKy79 iV9pIpWzDkT4ZOtwMig+ K7ZJYpibMQ2ZD0lTFJrs SzwvdGQ+PHRkIHN0 bOndOYufHJEsvZ1fFRCc A0d6YjSnAuT6ENeyZ2Tr HHUuqocnGa96rI1lUkLm KzD4AKvtR1HbatT2 LCAkjMTaITbgFIT1M38w b4X5BUOeIZAfRNR4pQJ8 pO8cqVrmavjywQYsoTgl dmVydGljYWwtYWxp Z941KIZfrRtqNkJpRgX4 UoZ6TbV4V4UlNwl0SHGw pSfhKH9pmGDbKVawTy7j nJywxMciIZ2tGQDk tpjkPWCswZ4mIEOmfHEk mImhZH0pPFJsybixt909 JiWuUUI6WLCmgJDpW3Wp dA9xYnLjUJBkBVBg E1MjkCHtMUtoZ222EBcs GzQ6PZBwdwUwB8BwZAIc gYkdGnX1g3U2Sd64OBOJ ZWFyczwvdGQ+PHRk VGS8zMayHOanWYAwlI5u SAAoM2d7ZcBlPzM5QDwl A8IeHWBuzhhhSu29uN9x MaRmBfG4CTjjK6Cq baF9UIBpfTYsNAbaWLO4 F33rx0V5CVJrLVDgECV7 uKO0qZ1okBysbvghkSZa dDsgdmVydGljYWwt DXmjO009QKYvlSgoZu1K XPE7B0VpMlm1CEKkjJgk MV3iiLEeRXkvEp8hrEws dBslSK3kGGHmjycc QYMbvY1rTZNybOSkiBsm CG9jHTAfuomkn736RbZg OLX6TXPlaIDkL4PtfE1i UaEhNIQpEHAuX9Fs gUOgCMfoS602XUevBiT0 CJGmowXxD2YsTROnaLef EdU2i2V8Hc7RHCscsTT+ OT98wq55E3JeFhdq Qez7TIPmGEH8cQZ6wT7p PMInERyim2B0wOE9T9Ar jaSxzr8pl8maOWRiSNkc M72vnVWey2R7KGGp eBM3KMPvvVpjGdZolX13 Oyc+YTImjKtre7QoItiq m4cym5nhqZu2QvLvYCFj kpZkhRezBGT6d2En Yg96I31lOKasOXMhBJIk VIHxDVJkvVxuxw6guG2g Ii8+HBRheAN8xDH0pS7y DpVtLsO3ONnhU616 BnRvhXLuJrooy4gja0sv pHr4MeOkCHCbfuGucCwd VAV1u0JyIh96C0WzsSjm s3MlRze3pw97nYHk i0C2cLP1Y9JwTIPugcyx rYGvjQuoKZ6tTBGglbrb ONOqtX3bAYMlM9h9RiQe VgS9FZxtD5HmyjA2 MXDcxCRwEDSngFSWiR3n prvex5gbuldmHaXoTZSw PFm5GEg2NFCgkVszUqKy PYF7EpG3BYB9aXCr lP3bsIavxyhnfM1jJym+ NGx9f0jmwJLkTQ5yoMK6 SK40SF83kIKsu5W0jQU3 C0PvXXKivuczjjjx bMC1VEOyIYBfuN14Vj9d rKqhFp7jYCBkOEQ4BSQq uGAdH8GufN8nUpHeFVQr SKNsL0GuwIAvGDfw X410QRuzWzG5QVYjgtAo Y8CsGLKabXwtVcP9k3H7 Jj2VGB63KN29VS10bFPt q8A7cYX0T9KfWNIj vhgitbjxbYT0TFBlWQVi jF30Oj2psZstSz1zHWUx EZU1TMFkxVOnK8MobH0s JmOnNSDgDVZpD5Ga fFUlXIpmB728VNnnXbJ1 IXXxdrBwD2TlPFBpaIzk QzZ3a9K2Dc4JYr59FU06 LR80lPMcn3Y1tRT8 P0GrEUAfqujtxkqpwSY7 YHZnYSHvcW72Be0ecQgz Kh5iPVQtGPB0HMQsmHAf Y6JmaU0zOwPiIJNn WYTlY8UhmXBaFRpsV569 MMgqCbQ8KSDmqrVjW1Ep DVXywUzuHcQ8p1R1Ks8B XPikczg7S3SiZpem dHI+FD20WZJbQM63cPAc vCAeo0ccnWl8UkPoJFGs AMC1lFfiEEran3QlYDEz B35lhWKqz5R7MECa bGx (more content not included)... Normal [facility] 12-13-2022 eGFR Non AA >60 Invalid Interpretation Code [facility] Comment on above: Performed By: #### 1 [id number], [id number], [id number] ####[facility] (DEFAULT)[address] [place] [address] eGFR AA >60 Invalid Interpretation Code [facility] Comment on above: Performed By: #### 1 [id number], [id number], [id number] ####[facility] (DEFAULT)[address] [place] [address] 73832 Albumin [Mass/Vol] 3.9 g/dL Normal 3.5-5.0 [facility] Comment on above: Performed By: #### 1 [id number], [id number], [id number] ####[facility] (DEFAULT)[address] [place] [address] 02222 Albumin/Globulin [Mass ratio] 1.0 {ratio} Low 1.4-2.6 [facility] Comment on above: Performed By: #### 1 [id number], [id number], [id number] ####[facility] (DEFAULT)[address] [place] [address] 37164 Alk Phos 84 IU/L Normal 32-91 [facility] Comment on above: Performed By: #### 1 [id number], [id number] ####[facility] (DEFAULT)[address] [place] [address] 95420 ALT [Catalytic activity/Vol] 22.0 U/L Normal 17.0-63.0 [facility] Comment on above: Performed By: #### 1 [id number], [id number], [id number] ####[facility] (DEFAULT)[address] [place] [address] 44429 Anion gap [Moles/Vol] 9.9 mmol/L Normal 5.0-19.0 [facility] Comment on above: Performed By: #### 1 [id number], [id number], [id number] ####[facility] (DEFAULT)[address] [place] [address] 54824 AST [Catalytic activity/Vol] 31 U/L Normal 15-41 [facility] Comment on above: Performed By: #### 1 [id number], [id number] ####[facility] (DEFAULT)[address] [place] [address] 20928 Bili Total 0.5 mg/dL Normal 0.3-1.2 [facility] Comment on above: Performed By: #### 1 [id number], [id number], [id number] ####[facility] (DEFAULT)[address] [place] [address] 65957 Calcium [Mass/Vol] 8.6 mg/dL Low 8.9-10.3 [facility] Comment on above: Performed By: #### 1 [id number], [id number], [id number] ####[facility] (DEFAULT)[address] [place] [address] 23242 Chloride [Moles/Vol] 104 mmol/L Normal 101-111 [facility] Comment on above: Performed By: #### 1 [id number], [id number], [id number] ####[facility] (DEFAULT)[address] [place] [address] 50963 CO2 [Moles/Vol] 28 mmol/L Normal 21-32 [facility] Comment on above: Performed By: #### 1 [id number], [id number], [id number] ####[facility] (DEFAULT)[address] [place] [address] 89510 Creatinine [Mass/Vol] 1.07 mg/dL Normal 0.90-1.30 [facility] Comment on above: Performed By: #### 1 [id number], [id number], [id number] ####[facility] (DEFAULT)[address] [place] [address] 46408 Globulin (S) [Mass/Vol] 3.9 g/dL Normal 1.5-4.3 [facility] Comment on above: Performed By: #### 1 [id number], [id number], [id number] ####[facility] (DEFAULT)[address] [place] [address] 81100 Glucose [Mass/Vol] 92.0 mg/dL Normal 74.0-118.0 [facility] Comment on above: Performed By: #### 1 [id number], [id number], [id number] ####[facility] (DEFAULT)[address] [place] [address] 52048 Osmolality 276 mOsm/L Invalid Interpretation Code [facility] Comment on above: Performed By: #### 1 [id number], [id number] ####[facility] (DEFAULT)[address] [place] [address]16 Potassium [Moles/Vol] 3.9 mmol/L Normal 3.6-5.1 [facility] Comment on above: Performed By: #### 1 [id number], [id number], [id number] ####[facility] (DEFAULT)[address] [place] [address] 46290 Protein [Mass/Vol] 7.8 g/dL Normal 6.5-8.1 [facility] Comment on above: Performed By: #### 1 [id number], [id number], [id number] ####[facility] (DEFAULT)[address] [place] [address] 18777 Sodium [Moles/Vol] 138.0 mmol/L Normal 136.0-144.0 [facility] Comment on above: Performed By: #### 1 [id number], [id number], [id number] ####[facility] (DEFAULT)[address] [place] [address] 48397 Urea nitrogen [Mass/Vol] 16 mg/dL Normal 8-26 [facility] Comment on above: Performed By: #### 1 [id number], [id number], [id number] ####[facility] (DEFAULT)[address] [place] [address] Urea nitrogen/Creatinine [Mass ratio] 14.9 mg/mg Normal 4.6-16.2 [facility] Comment on above: Performed By: #### 1 [id number], [id number], [id number] ####[facility] (DEFAULT)[address] [place] [address] 35144 Hemogram Standardon 12-14-19 23 Erythrocyte distribution width (RBC) [Ratio] 14.2 % Normal 11.5-15.0 [facility] Comment on above: Performed By: #### 1 [id number], [id number], [id number] ####[facility] (DEFAULT)[address] [place] [address] 52364 Hematocrit (Bld) [Volume fraction] 41.9 % Normal 34.8-51.9 [facility] Comment on above: Performed By: #### 1 [id number], [id number], [id number] ####[facility] (DEFAULT)[address] [place] [address] 23516 Hemoglobin (Bld) [Mass/Vol] 14.2 g/dL Normal 11.8-17.7 [facility] Comment on above: Performed By: #### 1 [id number], [id number], [id number] ####[facility] (DEFAULT)[address] [place] [address] MCH (RBC) [Entitic mass] 32 pg Normal 24-34 [facility] Comment on above: Performed By: #### 1 [id number], [id number], [id number] ####[facility] (DEFAULT)[address] [place] [address] MCHC (RBC) [Mass/Vol] 34 g/dL Normal 26-37 [facility] Comment on above: Performed By: #### 1 [id number], [id number], [id number] ####[facility] (DEFAULT)[address] [place] [address] MCV (RBC) [Entitic vol] 93 fL Normal 81-100 [facility] Comment on above: Performed By: #### 1 [id number], [id number], [id number] ####[facility] (DEFAULT)[address] [place] [address] Platelet 122 x10 Low 138-427 [facility] Comment on above: Performed By: #### 1 [id number], [id number], [id number] ####[facility] (DEFAULT)[address] [place] [address] Platelet mean volume (Bld) [Entitic vol] 8.0 fL Normal 6.3-10.2 [facility] Comment on above: Performed By: #### 1 [id number], [id number], [id number] ####[facility] (DEFAULT)[address] [place] [address] RBC 4.50 x10 Normal 3.70-5.30 [facility] Comment on above: Performed By: #### 1 [id number], [id number], [id number] ####[facility] (DEFAULT)[address] [place] [address] 49587 WBC 5.5 x10 Normal 3.5-10.5 [facility] Comment on above: Performed By: #### 1 [id number], [id number], [id number] ####[facility] (DEFAULT)[address] [place] [address] 34739 Lipid Panel Standardon 12-13 Cholesterol [Mass/Vol] 158.0 mg/dL Normal 66.0-200.0 [facility] Comment on above: Performed By: #### 1 [id number], [id number], [id number] ####[facility] (DEFAULT)[address] [place] [address] 06368 Cholesterol in HDL [Mass/Vol] 48 mg/dL Normal 40-71 [facility] Comment on above: Performed By: #### 1 [id number], [id number], [id number] ####[facility] (DEFAULT)[address] [place] [address] 55935 Cholesterol in LDL [Mass/Vol] 98 mg/dL Normal 1-100 [facility] Comment on above: Performed By: #### 1 [id number], [id number], [id number] ####[facility] (DEFAULT)[address] [place] [address] 93536 Cholesterol.total/Choles terol in HDL [Mass ratio] 3.3 {ratio} Normal 0.0-4.5 [facility] Comment on above: Performed By: #### 1 [id number], [id number], [id number] ####[facility] (DEFAULT)[address] [place] [address] 57473 Triglyceride [Mass/Vol] 60.0 mg/dL Normal 0.0-150.0 [facility] Comment on above: Performed By: #### 1 [id number], [id number], [id number] ####[facility] (DEFAULT)[address] [place] [address] 43559 VLDL. 12 mg/dL Normal 5-40 [facility] Comment on above: Performed By: #### 1 [id number], [id number], [id number] ####[facility] (DEFAULT)[address] [place] [address] Provider Orderson 12-13-2022 Provider Orders [id number] 0#1.00OTGTIFF Normal [facility] POC Glucose FingerstickOrder ed By: Serafin Shearer on 06-02-2019 Glucose [Mass/Vol] 70 mg/dL Low 75 - 110 mg/dL [employer] Phone: Interpretation and review of laboratory results Abnormal [employer] Phone: Glucose [Mass/Vol] 74 mg/dL Low 75 - 110 mg/dL [employer] Phone: Interpretation and review of laboratory results Abnormal [employer] Phone: Glucose [Mass/Vol] 64 mg/dL Low 75 - 110 mg/dL [employer] Phone: Interpretation and review of laboratory results Abnormal [employer] Phone: Surgical PathologyOrdered By : Serafin Shearer on 06-02-2019 Surgical Pathology Report [id number] [facility] ANATOMIC PATHOLOGY [address] [place] [phone] SURGICAL PATHOLOGY CONSULTATION Patient Name: YRN RICARDO [facility] Rec: [id number] Path Number: [id number] Collected: 06/01/2019 Received: 06/01/2019 Reported: 06/02/2019 10:13 [...] with no areas of granularity or masses. Optician Manager sections 1cs. tm Microscopic Description Microscopic examination performed. [employer] Phone: POC Glucose FingerstickOrder ed By: Serafin Shearer on 06-01-2019 Glucose [Mass/Vol] 91 mg/dL 75 - 110 mg/dL [employer] Phone: Glucose [Mass/Vol] 96 mg/dL 75 - 110 mg/dL [employer] Phone: Surgical Pathologyon 020 Surgical Pathology (NOTE) [id number] [facility] ANATOMIC PATHOLOGY [address] [place] [phone] SURGICAL PATHOLOGY CONSULTATION Patient Name: YRN RICARDO [facility] Rec: [id number] Path Number: [id number] Collected: 06/01/2019 Received: 06/01/2019 Reported: 06/02/2019 10:13 [...] with no areas of granularity or masses. Optician Manager sections 1cs. tm Microscopic Description Microscopic examination performed. Normal [facility] Comment on above: Performed By: #### P PPVS #### [facility] [address] [place] [address] Cashier Supervisor: Karl Klein MD Nicotineon 05-23-2019 2-FK-Rqglhens 3 ng/mL Normal [facility] Comment on above: Performed By: #### C BC, PT, BMP #### [facility] [address] [place] [address] [place] [address] Cashier Supervisor: Karl Klein MD #### ANICOT #### [address] [address] Cashier Supervisor: Cameron Calderon MD Cotinine 5 ng/mL Normal [facility] Comment on above: Result Comment: (NOT E) Cotinine is the major metabolite of nicotine and is a biomarker of passive exposure when present at low concentrations. This result may reflect passive exposure to a nicotine-containing product. The half-life of cotinine is approximately 16 hours. Cotinine is metabolized to 9-WN-wsuzdgeq, which may persist for weeks after cessation from long-term or heavy use of nicotine products. Performed By: #### C BC, PT, BMP #### [place] [address] [place], [place] [id number] Cashier Supervisor: Karl Klein MD #### RAVIT #### [address] [address] Cashier Supervisor: Cameron Calderon MD Nicotine <2 Normal [facility] Comment on above: Result Comment: (NOT [...] positive. Test developed and characteristics determined by [facility]. See Compliance Statement B: [employer] Performed by [facility], [address] [place] [address] www.[email or web address], Cameron Calderon MD, Lab. Director Performed By: #### Kenrick VELARDE PT, BMP #### [facility] [address] [place] [address] Cashier Supervisor: Karl Klein MD #### ANICOT #### [facility] [address] [place] [address] Cashier Supervisor: Cameron Calderon MD Basic Metabolic Profon 05-19 (cont.) Normal [facility] Comment on above: Result Comment: Aver age GFR for 50-59 years old: 93 mL/min/1.73sq m Chronic Kidney Disease: <60 mL/min/1.73sq m Kidney failure: <15 mL/min/1.73sq m eGFR calculated using average adult body mass. Additional eGFR calculator available at: http://www.organgir.am/multiple_crcl_2012.htm Performed By: #### C SYD PT, BMP #### [facility] [address] [place] [address] Cashier Supervisor: Karl Klein MD #### ANICOT #### [facility] [address] [place] [address] Cashier Supervisor: Cameron Calderon MD Anion gap [Moles/Vol] 14 mmol/L Normal 9-17 [facility] Comment on above: Performed By: #### Kenrick VELARDE PT, BMP #### [facility] [address] [place] [address] Cashier Supervisor: Karl Klein MD #### ANICOT #### [facility] [address] [place] [address] Cashier Supervisor: Cameron Calderon MD Calcium [Mass/Vol] 9.7 mg/dL Normal 8.6-10.4 [facility] Comment on above: Performed By: #### C SYD, PT, BMP #### [facility] [address] [place] [address] Cashier Supervisor: Karl Klein MD #### ANICOT #### [facility] [address] [place] [address] Cashier Supervisor: Cameron Calderon MD Chloride [Moles/Vol] 98 mmol/L Normal 98-107 [facility] Comment on above: Performed By: #### C BC, PT, BMP #### [facility] [address] [place] [address] Cashier Supervisor: Karl Klein MD #### ANICOT #### [facility] [address] [place], [place] [id number] Cashier Supervisor: Cameron Calderon MD CO2 [Moles/Vol] 25 mmol/L Normal 20-31 [facility] Comment on above: Performed By: #### C BC, PT, BMP #### [address] [address] Cashier Supervisor: Karl Klein MD #### ANICOT #### [facility] [address] [place], [place] [id number] Cashier Supervisor: Cameron Calderon MD Creatinine [Mass/Vol] 1.28 mg/dL High 0.70-1.20 [facility] Comment on above: Performed By: #### C BC, PT, BMP #### [address] [address] Cashier Supervisor: Karl Klein MD #### ANICOT #### [facility] [address] [place], [place] [id number] Cashier Supervisor: Cameron Calderon MD GFR, Amer >60 Normal >60 [facility] Comment on above: Performed By: #### C BC, PT, BMP #### [facility] [address] [place] [address] Cashier Supervisor: Karl Klein MD #### ANICOT #### [facility] [address] [place] [address] Cashier Supervisor: Cameron Calderon MD GFR,non Amer 58 mL/min Low >60 [facility] Comment on above: Performed By: #### Kenrick VELARDE PT, BMP #### [facility] [address] [place] [address] Cashier Supervisor: Karl Klein MD #### ANICOT #### [facility] [address] [place] [address] Cashier Supervisor: Cameron Calderon MD Glucose [Mass/Vol] 80 mg/dL Normal 70-99 [facility] Comment on above: Performed By: #### Kenrick VELARDE PT, BMP #### [address] [address] Cashier Supervisor: Karl Klein MD #### ANICOT #### [facility] [address] [place] [address] Cashier Supervisor: Cameron Calderon MD Potassium [Moles/Vol] 4.6 mmol/L Normal 3.7-5.3 [facility] Comment on above: Performed By: #### Kenrick VELARDE PT, BMP #### [address] [address] Cashier Supervisor: Karl Klein MD #### ANICOT #### [facility] [address] [place], [place] [id number] Cashier Supervisor: Cameron Calderon MD Sodium [Moles/Vol] 137 mmol/L Normal 135-144 [facility] Comment on above: Performed By: #### Kenrick VELARDE PT, BMP #### [address] [address] Cashier Supervisor: Karl Klein MD #### ANICOT #### [facility] [address] [place] [address] Cashier Supervisor: Cameron Calderon MD Urea nitrogen [Mass/Vol] 23 mg/dL High 6-20 [facility] Comment on above: Performed By: #### C BC, PT, BMP #### [facility] [address] [place] [address] Cashier Supervisor: Karl Klein MD #### ANICOT #### [facility] [address] [place] [address] Cashier Supervisor: Cameron Calderon MD BUN/CRE Ratio NOT REPORTED Normal - [facility] Comment on above: Performed By: #### C BC, PT, BMP #### [facility] [address] [place] [address] Cashier Supervisor: Karl Klein MD #### ANICOT #### [facility] [address] [place], [place] [id number] Cashier Supervisor: Cameron Calderon MD Staging: NOT REPORTED Normal [facility] Comment on above: Performed By: #### C BC, PT, BMP #### [facility] [address] [place] [address] Cashier Supervisor: Karl Klein MD #### ANICOT #### [facility] [address] [place] [address] Cashier Supervisor: Cameron Calderon MD [facility] 05-19-2019 Erythrocyte distribution width (RBC) [Ratio] 16.0 % High 11.8-14.4 [facility] Comment on above: Performed By: #### C BC, PT, BMP #### [facility] [address] [place] [address] Cashier Supervisor: Karl Klein MD #### ANICOT #### [facility] [address] [place] [address] Cashier Supervisor: Cameron Calderon MD Hematocrit (Bld) [Volume fraction] 42.0 % Normal 40.7-50.3 [facility] Comment on above: Performed By: #### C BC, PT, BMP #### [address] [id number] Cashier Supervisor: Karl Klein MD #### ANICOT #### [facility] [address] [place], [place] [id number] Cashier Supervisor: Cameron Calderon MD Hemoglobin (Bld) [Mass/Vol] 13.2 g/dL Normal 13.0-17.0 [facility] Comment on above: Performed By: #### C BC, PT, BMP #### [address] [id number] Cashier Supervisor: Karl Klein MD #### ANICOT #### [facility] [address] [place] [id number] Cashier Supervisor: Cameron Calderon MD MCH (RBC) [Entitic mass] 28.4 pg Normal 25.2-33.5 [facility] Comment on above: Performed By: #### C BC, PT, BMP #### [address] [id number] Cashier Supervisor: Karl Klein MD #### ANICOT #### [facility] [address] [place] [id number] Cashier Supervisor: Cameron Calderon MD MCHC (RBC) [Mass/Vol] 31.4 g/dL Normal 28.4-34.8 [facility] Comment on above: Performed By: #### C BC, PT, BMP #### [address] [id number] Cashier Supervisor: Karl Klein MD #### ANICOT #### [facility] [address] [place], [place] [id number] Cashier Supervisor: Cameron Calderon MD MCV (RBC) [Entitic vol] 90.3 fL Normal 82.6-102.9 [facility] Comment on above: Performed By: #### C BC, PT, BMP #### [address] [address] Cashier Supervisor: Karl Klein MD #### ANICOT #### [facility] [address] [place] [address] Cashier Supervisor: Cameron Calderon MD NRBC Automated 0.0 per 100 WBC Normal 0.0 [facility] Comment on above: Performed By: #### C BC, PT, BMP #### [address] [address] Cashier Supervisor: Karl Klein MD #### ANICOT #### [facility] [address] [place] [address] Cashier Supervisor: Cameron Calderon MD Platelet mean volume (Bld) [Entitic vol] 9.8 fL Normal 8.1-13.5 [facility] Comment on above: Performed By: #### C BC, PT, BMP #### [address] [address] Cashier Supervisor: Karl Klein MD #### ANICOT #### [facility] [address] [place] [address] Cashier Supervisor: Cameron Calderon MD Platelets (Bld) [#/Vol] 199 10*3/uL Normal 138-453 [facility] Comment on above: Performed By: #### C BC, PT, BMP #### [address] [address] Cashier Supervisor: Karl Klein MD #### ANICOT #### [facility] [address] [place] [address] Cashier Supervisor: Cameron Calderon MD RBC (Bld) [#/Vol] 4.65 10*6/uL Normal 4.21-5.77 [facility] Comment on above: Performed By: #### C BC, PT, BMP #### [address] [address] Cashier Supervisor: Karl Klein MD #### ANICOT #### [facility] [address] [place], [place] [id number] Cashier Supervisor: Cameron Calderon MD WBC (Bld) [#/Vol] 6.7 10*3/uL Normal 3.5-11.3 [facility] Comment on above: Performed By: #### C BC, PT, BMP #### [address] [address] Cashier Supervisor: Karl Klein MD #### ANICOT #### [facility] [address] [place] [address] Cashier Supervisor: Cameron Calderon MD PTon 05-19-2019 INR Coag (PPP) [Relative time] 1.1 {INR} Normal [facility] Comment on above: Result Comment: Therapeutic Range: Moderate Anticoagulant Intensity: INR = 2.0-3.0 High Anticoagulant Intensity: INR = 2.5-3.5 Performed By: #### C BC, PT, BMP #### [address] [address] Cashier Supervisor: Karl Klein MD #### ANICOT #### [facility] [address] [place], [place] [id number] Cashier Supervisor: Cameron Calderon MD PT Coag (PPP) [Time] 12.0 s Normal 9.0-12.0 [facility] Comment on above: Performed By: #### C BC, PT, BMP #### [address] [address] Cashier Supervisor: Karl Klein MD #### ANICOT #### [facility] [address] [place] [address] Cashier Supervisor: Cameron Calderon MD XR CHEST (2 VW)on [...] Shawanda Aragon MD 05/19/19 Final result Normal [facility] XR CHEST STANDARD (2 VW)Orde red By: Serafin Shearer on 05-19-2019 [facility]. [facility] Work Phone: EXAMINATION: TWO XRAY VIEWS OF THE CHEST 05/19/2019 11:41 am COMPARISON: None. HISTORY: ORDERING SYSTEM PROVIDED HISTORY: preop sleeve gastrectomy Reason for Exam: Preop 06/01/19. no chest complaints Type of Exam: Initial FINDINGS: The lungs are without acute focal process. No effusion or pneumothorax. The cardiomediastinal silhouette is normal. The osseous structures are intact without acute process. [id number] Work Phone: Car, [employer] Incoming Radiant Results From [facility] - 05/19/2019 11:50 AM EST EXAMINATION: TWO [...] intact without acute process. IMPRESSION: Negative chest. [id number] Work Phone: Vital Signs Date Time Vital Sign Value Performing Clinician Emilia henley 05-14-2023 11:28-0500 Body height 190.5 cm Olaf esquivel APRN-LEASE OPERATOR Work Phone: [employer] 05-14-2023 11:28-0500 Body mass index (BMI) [Ratio] 48.25 kg/m2 Olaf Sheaer NETWORK MANAGEMENT SPECIALIST-LEASE OPERATOR Work Phone: [employer] 05-14-2023 11:28-0500 Body weight 175.09 kg Olaf Sheae r NETWORK MANAGEMENT SPECIALIST-LEASE OPERATOR Work Phone: [employer] 05-14-2023 11:28-0500 Diastolic blood pressure 80 mm[Hg] Olaf Zimmermanopher NETWORK MANAGEMENT SPECIALIST-LEASE OPERATOR Work Phone: [employer] 05-14-2023 11:28-0500 Heart rate 61 /min Olaf Sheae r NETWORK MANAGEMENT SPECIALIST-LEASE OPERATOR Work Phone: [employer] 05-14-2023 11:28-0500 SaO2% (BldA) [Mass fraction] 95 % Olaf Sheaer NETWORK MANAGEMENT SPECIALIST-LEASE OPERATOR Work Phone: [employer] 05-14-2023 11:28-0500 Systolic blood pressure 116 mm[Hg] Olaf Zimmermanopher NETWORK MANAGEMENT SPECIALIST-LEASE OPERATOR Work Phone: [employer] 06-02-2019 07:15-0500 Body temperature 99.3 [degF] Serafin Shearer MD Work Phone: [id number] Work Phone: 06-02-2019 07:15-0500 Diastolic blood pressure 59 mm[Hg] Serafin Shearer MD Work Phone: [id number] Work Phone: 06-02-2019 07:15-0500 Heart rate 62 /min Serafin Shearer MD Work Phone: [id number] Work Phone: 06-02-2019 07:15-0500 Respiratory rate 16 /min Serafin Shearer MD Work Phone: [id number] Work Phone: 06-02-2019 07:15-0500 SaO2% (BldA) [Mass fraction] 95 % Serafin Shearer MD Work Phone: [id number] Work Phone: 06-02-2019 07:15-0500 Systolic blood pressure 116 mm[Hg] Serafin Shearer MD Work Phone: [id number] Work Phone: 06-01-2019 09:10-0500 Body height 190.5 cm Serafin Shearer MD Work Phone: [id number] Work Phone: 06-01-2019 09:10-0500 Body mass index (BMI) [Ratio] 53.24 kg/m2 Serafin Shearer MD Work Phone: [id number] Work Phone: 06-01-2019 09:10-0500 Body weight 193.2 kg Serafin Shearer MD Work Phone: [id number] Work Phone: Encounters Encounter Date Encounter Type Care Provider Facility Start: 11-22-2023 End: 11-22-2023 ambulatory LESLY MELCHOR MD Facility:[facility] Start: 11-15-2023 End: 11-15-2023 ambulatory Srinivas R Dolce Facility:[facility] Start: 10-25-2023 End: 10-25-2023 ambulatory Srinivas R Dolce Facility:[facility] Start: 10-17-2023 End: 10-17-2023 ambulatory PETER Redmond Facility:[facility] Start: 10-10-2023 End: 10-10-2023 ambulatory PETER Redmond Facility:[facility] Start: 10-04-2023 ambulatory Srinivas R Dolmegan Facility :[facility] Start: 10-02-2023 ambulatory Srinivas R Dolce Facility :[facility] Start: 09-26-2023 ambulatory Melo Reno acility:[facility] Start: 09-26-2023 End: 09-26-2023 ambulatory PA Kelley Redmond Facility:[facility] Start: 09-25-2023 End: 09-25-2023 ambulatory LESLY MELCHOR MD Facility:[facility] Start: 09-16-2023 End: 09-16-2023 ambulatory Srinivas R Dolce Facility:[facility] Start: 09-10-2023 End: 09-10-2023 ambulatory PA Kelley Redmond Facility:[facility] Start: 09-02-2023 End: 09-02-2023 ambulatory Srinivas R Dolce Facility:[facility] Start: 08-26-2023 End: 08-26-2023 ambulatory Srinivas R Dolce Facility:[facility] Start: 08-19-2023 End: 08-19-2023 ambulatory Srinivas R Dolce Facility:[facility] Start: 08-15-2023 End: 08-15-2023 ambulatory PA Kelley Redmond Facility:[facility] Start: 08-08-2023 End: 08-08-2023 ambulatory PA Kelley Redmond Facility:[facility] Start: 08-01-2023 End: 08-01-2023 ambulatory PA Kelley Redmond Facility:[facility] Start: 07-26-2023 End: 07-26-2023 ambulatory Srinivas R Dolce Facility:[facility] Start: 07-24-2023 End: 07-24-2023 ambulatory Srinivas R Dolce Facility:[facility] Start: 07-24-2023 End: 07-24-2023 ambulatory Srinivas R Dolce Facility:[facility] Start: 07-19-2023 End: 07-19-2023 ambulatory LESLY MELCHOR MD Facility:[facility] Start: 07-19-2023 End: 07-19-2023 ambulatory Srinivas R Dolce Facility:[facility] Start: 07-15-2023 End: 07-15-2023 ambulatory Srinivas R Dolce Facility:[facility] Start: 07-12-2023 End: 07-12-2023 ambulatory Srinivas R Dolce Facility:[facility] Start: 07-10-2023 End: 07-10-2023 ambulatory Srinivas R Dolce Facility:[facility] Start: 07-05-2023 End: 07-05-[address] [facility] Facility:[facility] Start: 07-01-2023 End: 07-01-[address] [facility] Facility:[facility] Start: 06-26-2023 End: 06-26-2023 ambulatory LESLY MELCHOR MD Facility:[facility] Start: 05-14-2023 End: 05-14-2023 Office outpatient visit 15 minutes Olaf GOOD Work Phone: [facility] Comment on above: Cardiac pacemaker (P rimary Dx); Morbid obesity with BMI of 40.0-44.9, adult ([facility]); Complete heart block ([facility]) Start: 05-14-2023 End: 05-14-2023 Clinical Support Ppc Pacer [facility] Comment on above: Cardiac pacemaker (P rimary Dx) Start: 03-26-2023 End: 03-26-2023 ambulatory LESLY MELCHOR MD Facility:[facility] Start: 12-21-2022 End: 12-21-2022 ambulatory LESLY MELCHOR MD Facility:[facility] Start: 12-13-2022 End: 12-13-2022 ambulatory Ai Cormier Facility:[facility] Start: 11-27-2022 ambulatory LESLY MELCHOR MD Facil ity:[facility] Start: 02-10-2021 End: 02-11-2021 [email or web address] Start: 02-10-2021 End: 02-10-2021 Subsequent hospital visit by physician [facility]m [facility] Comment on above: History of pulmonary embolism; Hx of deep venous thrombosis Start: 06-01-2019 End: 06-02-2019 Evaluation and management of inpatient SERAFIN SHEARER [facility] Start: 06-01-2019 End: 06-02-2019 Evaluation and management of inpatient Serafin Shearer MD Work Phone: [facility] 2[facility] Ortho/Med Surg Comment on above: S/P laparoscopic sle ramon gastrectomy (Primary Dx) Start: 05-19-2019 End: 2019 Patient encounter procedure SERAFIN SHEARER [facility] Start: 05-19-2019 End: 05-21-2019 Subsequent hospital visit by physician Christian 2 [facility] Radiology Comment on above: Arrived [...] 06-01-2019 ELEVATE HEELS OFF OF BED SERAFIN [place] Start: 06-01-2019 HEAD OF BED 60 DEGREES OR LESS SERAFIN [place] Start: 06-01-2019 NURSING COMMUNICATION SERAFIN JEREMYLOUISE Start: 06-01-2019 TURN PATIENT SERAFIN [place] Start: 06-01-2019 PATIENT STATUS (FROM ED OR OR/PROCEDURAL) SERAFIN [place] Start: 06-01-2019 TRANSFER PATIENT SERAFIN [place] Start: 06-01-2019 Level iv surg pathology gross&microscopic exam SERAFIN SHEARER Start: 06-01-2019 End: 06-01-2019 Laps gstrc rstrictiv px longitudinal gastrectomy Serafin Shearer MD Work Phone: Start: 05-19-2019 NURSING COMMUNICATION SERAFIN [place] Start: 05-19-2019 Assay of nicotine SERAFIN SHEARER [...] (2 of 2 - PPSV23) [facility] Work Phone: Start: 12-30-2025 Lipid panel Lipid screen [facility] Work Phone: Start: 05-14-2024 Adult BMI Screening Adult BMI Screen ing [facility] Start: 05-14-2024 Tobacco Screening Tobacco Screening [facility] Start: 07-30-2023 Lipid screen Lipid screen [facility] [employer] Phone: Start: 12-30-2021 Creatinine measurement Creatinine mo nitoring [facility] [employer] Phone: Start: 12-30-2021 Potassium monitoring Potassium monit [facility] [employer] Phone: Start: 12-30-2021 Thyroid stimulating hormone measurement TSH testing [facility] [employer] Phone: Start: 08-29-2021 End: 08-29-2021 Patient encounter procedure 08/29/2021 Office Visit Oncology Consuelo Delgadillo MD [address], [place] [id number] [facility] Start: 03-24-2021 End: 03-24-2021 Patient encounter procedure 03/24/2021 Office Visit Pulmonology Teddy Fam MD [address] [id number] [facility]. Start: 02-14-2021 End: 02-14-2021 Patient encounter procedure 02/14/2021 Office Visit Bariatrics Mary Lou Power, NETWORK MANAGEMENT SPECIALIST - LEASE OPERATOR [address] [place] [id number] [facility] Start: 01-04-2021 Influenza vaccination Flu vaccine (# 1) [facility] [employer] Phone: Start: 05-19-2020 Creatinine monitoring Creatinine mon itoring [facility] [employer] Phone: Start: 05-19-2020 Potassium monitoring Potassium monit [facility] [employer] Phone: Start: 07-30-2019 TSH testing TSH testing [facility] [employer] Phone: Start: 06-12-2019 End: 06-12-2019 Patient encounter procedure 06/12/2019 Office Visit Pulmonology Teddy Fam MD [address] [id number] [facility] Start: 06-09-2019 End: 06-09-2019 Patient encounter procedure 06/09/2019 Office Visit Bariatrics Serafin Shearer MD [address] [facility] [place] [address] [facility] Start: 06-01-2019 End: 06-01-2019 Admission to same day surgery center 06/01/2019 Surgery IP Unit Serafin Shearer MD [address] [facility] [place] [address] XI ROBOTIC LAPAROSCOPIC GASTRECTOMY SLEEVE, ENDOSEAL [facility] Comment on above: XI ROBOTIC LAPAROSCO PIC GASTRECTOMY SLEEVE, ENDOSEAL Start: 06-01-2019 Subsequent hospital visit by physician 06/01/2019 Hospital Encounter IP Unit Serafin Shearer MD [address] [place] [address] [facility] Start: 03-06-2019 Annual Wellness Visi t (AWV) Annual Wellness Visit (AWV) [employer] Phone: Start: 2012 Administration of varicella zoster vaccine Zoster (Shingles) Vaccine (1 of 2) [employer] Start: 2012 Colon cancer screen colonoscopy Colon cancer screen colonoscopy [employer] Phone: Start: 2012 Shingles Vaccine (1 of 2) Shingles Vaccine (1 of 2) [employer] Phone: Start: 2007 Screening for malign ant neoplasm of colon Colon cancer screen colonoscopy [employer] Phone: Start: 1981 DTaP,Tdap and Td Vaccines (1 - Tdap) DTaP,Tdap and Td Vaccines (1 - Tdap) [employer] Start: 1981 DTaP/Tdap/Td vaccine (1 - Tdap) DTaP/Tdap/Td vaccine (1 - Tdap) [employer] Phone: Start: 1980 Adult BMI Follow Up Plan Adult BMI Follow Up Plan [employer] Start: 1977 HIV screen [facility] Work Phone: Start: 1977 HIV screening HIV screen Krystin Guevara [facility] Work Phone: Start: 1974 Depression Screening Depression Scre ening [employer] Start: 1973 DTaP/Tdap/Td vaccine (1 - Tdap) DTaP/Tdap/Td vaccine (1 - Tdap) [employer] Phone: Start: 1962 Hepatitis C screen Hepatitis C kojo franz [employer] Phone: Start: 1962 Hepatitis C screening Hepatitis C sc reen [employer] Phone: Start: 1962 Tobacco Counseling Tobacco Counselin g [employer] Home BIPAP or CPAP Home BIPAP or CPAP Respiratory Care Routine Daily until discontinued starting 06/01/2019 [employer] Phone: Comment on above: Daily until disconti nued starting 06/01/2019 Initiate Oxygen Ther apy Protocol Initiate Oxygen Therapy Protocol Respiratory Care Routine Daily until discontinued starting 06/01/2019 [employer] Phone: Comment on above: Daily until disconti nued starting 06/01/2019 Surgical Pathology Surgical Path ology Lab Routine ONE TIME for 1 Occurrences starting 06/01/2019 [employer] Phone: Comment on above: ONE TIME for 1 Occur rences starting 06/01/2019 Immunizations Immunization Date Immunization Notes Care Provider Bhavna lynch 12-16-2013 pneumococcal polysaccharide vaccine, [address]v 2 [facility] Payers Date Payer Category Payer Self-pay 2019 Unknown [employer] UAL BENEFITS [place] WEN DUAL xxxxxxxxxxx 2019-Present [address] [place] [id number] xxxxxxxxxxx [id number] 2018 Medicaid [place] MED[place] MEDICAID [id number] 2018-Present [phone] [address] [place] [address] [id number] 2018 Medicaid [id number] 2018 Medicare [place] MEDICARE [place] ARANDA MEDICARE [id number] 2018-Present [phone] [address] [place] [address] [id number] 2018 Unknown [id number] 1962 Unknown [id number] 2.16.840.1.217718.3.579.2.175 1962 Unknown [id number] 2.16.840.1.779190.3.579.2.175 1962 Unknown [id number] 2.16.840.1.742478.3.579.2.175 1962 Unknown [id number] 2.16.840.1.921753.3.579.2.176 1962 Unknown [id number] 2.16.840.1.847678.3.579.2.1286 1962 Unknown [id number] 2.16.840.1.578396.3.579.2.1286 1962 Unknown [id number] 2.16.840.1.784647.3.579.2.718 1962 Unknown [id number] 2.16.840.1.802107.3.579.2.718 1962 Unknown [id number] 2.16.840.1.825031.3.579.2.718 -19-1963 Unknown [id number] 2.16.840.1.143175.3.579.2. 1962 Unknown [id number] 2.16.840.1.672673.3.579.2. 1962 Unknown [id number] 2.16.840.1.442463.3.579.2. 1962 Unknown [id number] 2.16.840.1.464333.3.579.2. 1962 Unknown [id number] 2.16.840.1.471775.3.579.2. 1962 Unknown [id number] 2.16.840.1.698553.3.579.2. 1962 Unknown [id number] 2.16.840.1.471105.3.579.2. 1962 Unknown [id number] 2.16.840.1.975023.3.579.2. 1962 Unknown [id number] 2.16.840.1.670490.3.579.2. 1962 Unknown [id number] 2.16.840.1.174269.3.579.2. 1962 Unknown [id number] 2.16.840.1.853503.3.579.2. 1962 Unknown [id number] 2.16.840.1.418717.3.579.2. 1962 Unknown [id number] 2.16.840.1.676876.3.579.2. 1962 Unknown [id number] 2.16.840.1.305254.3.579.2. 1962 Unknown [id number] 2.16.840.1.964701.3.579.2. 1962 Unknown [id number] 2.16.840.1.076067.3.579.2. 1962 Unknown [id number] 2.16.840.1.940949.3.579.2. 1962 Unknown [id number] 2.16.840.1.141712.3.579.2. 1962 Unknown [id number] 2.16.840.1.828037.3.579.2. 1962 Unknown [id number] 2.16.840.1.180646.3.579.2. 1962 Unknown [id number] 2.16.840.1.702494.3.579.2. 1962 Unknown [id number] 2.16.840.1.221227.3.579.2. 1962 Unknown [id number] 2.16.840.1.861772.3.579.2. 1962 Unknown [id number] 2.16.840.1.603509.3.579.2. 1962 Unknown [id number] 2.16.840.1.261664.3.579.2. 1962 Unknown [id number] 2.16.840.1.142329.3.579.2. 1962 Unknown [id number] 2.16.840.1.724628.3.579.2. 1962 Unknown [id number] 2.16.840.1.439749.3.579.2. 1962 Unknown [id number] 2.16.840.1.879123.3.579.2. 1962 Unknown [id number] 2.16.840.1.563422.3.579.2. 1962 Unknown [id number] 2.16.840.1.453077.3.579.2. 1962 Unknown [id number] 2.16.840.1.999236.3.579.2.718 1962 Unknown [id number] 2.16.840.1.827359.3.579.2.718 1962 Unknown [id number] 2.16.840.1.798670.3.579.2.718 1962 Unknown [id number] 2.16.840.1.411409.3.579.2.718 Unknown [id number] 2.16.840.1.329322.3.579.2.531 Social History Date Type Detail Facility Start: 02-08-2021 End: 04-18-2022 Tobacco smoking status NHIS Never smoker [facility] [employer] [facility] Start: 02-08-2021 Tobacco use and exposure Former user [employer] Phone: End: 01-17-2021 History of tobacco use Chews Tobacco [employer] Phone: Start: 02-08-2021 End: 05-14-2023 Alcohol intake Ex-drinker (finding) [employer] Phone: Start: 07-25-2018 History SDOH Alcohol Frequency 1 [employer] Phone: Start: 1960 Sex Assigned At Not on file M Gooddler Phone: Start: 04-18-2022 Tobacco use and exposure [facility] Start: 06-16-2020 End: 05-14-2023 History of Social function [facility] [employer] [facility] Start: 06-16-2020 End: 05-14-2023 Tobacco use panel [facility] Housing Instability Unknown [facility] Medical Equipment Procedure Code Equipment Code Equipment Origin al Text Equipment Identifier Dates Ld Pcng Ingevity + 52cm Mri - [id number] - [id number] Start: 08-25-2020 Cardiac pacemaker, device (physical object) ([id number]) Pcmkr Accolade Mri Dr Cade - [id number] - [id number] Start: 08-25-2020 Goals Date Patient Goal Desired Activity /State Personal health goal Comment on above: Formatting of this n ote might be different from the original. Evaluation of progress towards goal: home self care Clinical Notes 06-02-2019 to 11-18-2023 Olaf Cain APRN-LEASE OPERATOR - 05/14/2023 11:30 AM Juanita Hopper MD - 05/14/2023 11:00 AM Starr Sanon RN - 06/02/2019 7:24 AM Serafin Jesus MD - 06/02/2019 6:43 AM EST Note Date & Type Note Facility 11-18-2023 Note Entered by Yousuf Pierce CMA on November 18, 2023 07:43:49 EDT From: Ana Pierce CMA To: [facility] Sent: 11/18/2023 07:43:49 EDT Subject: Medication Management Submitted: Complete:rivaroxaban (Xarelto 20 mg oral tablet) Signed by Ana Pierce CMA 11/18/2023 07:43:00 EDT Approved with modifications: rivaroxaban (XARELTO 20 MG TABLET 20 Tablet) TAKE 1 TABLET BY MOUTH IN THE EVENING WITH MEALS Qty: 30 tab(s) Days Supply: 30 Refills: 10 Substitutions Allowed Route To Pharmacy - [facility] Signed by Ana Pierce CMA Patient matched by Ana Pierce CMA on 11/18/2023 07:43:20 EDT --------- From: [facility] To: KAREN ZAPATA, LESLY To MD Sent: November 15, 2023 5:11:03 PM CDT Subject: Medication Management Due: November 16, 2023 12:10:53 AM CDT On Hold Pending Signature Dispensed Drug: rivaroxaban (Xarelto 20 mg oral tablet), TAKE 1 TABLET BY MOUTH IN THE EVENING WITH MEALS Quantity: 30 tab(s) Days Supply: 30 Refills: 10 Substitutions Allowed Notes from Pharmacy: --------- [facility] 10-17-2023 Note Entered by Yousuf Pierce on October 17, 2023 07:43:22 EDT From: Ana Pierce To: [facility] Sent: 10/17/2023 07:43:22 EDT Subject: Medication Management Submitted: Complete:levothyroxine (levothyroxine 150 mcg (0.15 mg) oral tablet) Signed by Ana Pierce 10/17/2023 07:43:00 EDT Approved with modifications: levothyroxine (LEVOTHYROXINE 150MCG TAB 150 Tablet) TAKE 1 TABLET BY MOUTH ONCE DAILY Qty: 30 tab(s) Days Supply: 30 Refills: 10 Substitutions Allowed Route To Pharmacy - [facility] Signed by Ana Pierce --------- [facility] To: KAREN ZAPATA, LESLY To [...] 10 Substitutions Allowed Notes from Pharmacy: --------- [facility] 07-24-2023 Note CLINICAL DATA: Venou s [...] Signature): Romulo Wright 07/24/23 10:38 a Technologist: [facility] 07-08-2023 Note Entered by Yousuf Pierce on July 08, 2023 07:59:35 EST From: Ana Pierce [facility] Sent: 07/08/2023 07:59:35 EST Subject: Medication Management Not Approved: now on pulmicort fluticasone (FLUTICASONE PROP HFA 110MCG 110 Aerosol) INHALE 2 PUFFS BY MOUTH TWICE DAILY *RINSE MOUTH AFTER USE* Qty: 12 gm Days Supply: 30 Refills: 10 Substitutions Allowed Route To Pharmacy - [facility] Signed by Ana Pierce --------- From: [facility] To: KAREN ZAPATA, LESLY To MD Sent: July 05, 2023 4:32:01 PM LEAD WEB DEVELOPER Subject: Medication Management Due: July 06, 2023 12:09:30 AM LEAD WEB DEVELOPER On Hold Pending Signature Drug: fluticasone (Flovent [...] 10 Substitutions Allowed Notes from Pharmacy: --------- [facility] 05-28-2023 Note Entered by Yousuf Pierce on May 28, 2023 07:49:21 EST From: Ana Pierce To: [facility] Sent: 05/28/2023 07:49:21 EST Subject: Medication Management Submitted: Complete:oxyBUTYnin (oxybutynin 10 mg/24 hr oral tablet, extended release) Signed by Ana Pierce 05/28/2023 07:49:00 EST Approved with modifications: oxyBUTYnin (OXYBUTYNIN ER 10MG TAB 10 Tablet) TAKE 1 TABLET BY MOUTH DAILY Qty: 30 tab(s) Days Supply: 30 Refills: 10 Substitutions Allowed Route To Pharmacy - [facility] Signed by Ana Pierce --------- From: [facility] To: KAREN ZAPATA, LESLY To MD Sent: May 27, 2023 5:22:40 PM LEAD WEB DEVELOPER Subject: Medication Management Due: May 28, 2023 12:05:03 AM LEAD WEB DEVELOPER On Hold Pending Signature Drug: oxyBUTYnin (oxybutynin 10 mg/24 hr oral tablet, extended release), 1 tab(s) PO Daily Quantity: 30 tab(s) Days Supply: 0 Refills: 10 Substitutions Allowed Notes from Pharmacy: Dispensed Drug: oxyBUTYnin (oxybutynin 10 mg/24 hr oral tablet, extended release), TAKE 1 TABLET BY MOUTH DAILY Quantity: 30 tab(s) Days Supply: 30 Refills: 10 Substitutions Allowed Notes from Pharmacy: --------- [facility] 05-14-2023 History of Present illness Narrative Yrn Ricardo Date of visit: 05/14/2023 Date of : 1960 Age: 62 y.o. Patient Active Problem List Diagnosis Complete heart block ([facility]) Abnormal stress test Cardiac pacemaker Morbid obesity with BMI of 40.0-44.9, adult ([facility]) Bilateral primary osteoarthritis of knee Blister of [...] PE, chronic lymphedema, complete heart block s/p [employer] dual-chamber pacemaker implanted 2020. He is here today for routine evaluation. Patient states he has been doing well since last office visit. He denies chest pain, shortness of breath, palpitations, fatigue. Patient enjoys fishing with his grandson. Past Medical History: Diagnosis Date Anxiety COPD (chronic obstructive pulmonary disease) ([facility]) Depression Hypertension Hypothyroidism Sleep apnea No data recorded No data recorded No data recorded Past Surgical History: Procedure Laterality Date Cardiac catheterization N/A 08/23/2020 Performed by Brian Hilario MD at [facility] CARD[facility] CATH [facility]S Coronary angiogram and left ventricular gram/pressure N/A 08/23/2020 Performed by Brian Hilario MD at [facility] CARDI[facility] CATH [facility] EP - Device-PPM Left 08/25/2020 Performed by Alexander Hopper MD at [facility] (EP) HAND RECONSTRUCTION Left SLEEVE GASTROPLASTY 05/2019 [...] Morbid obesity with BMI of 40.0-44.9, adult ([facility]) 3. Complete heart block ([facility]) Intermittent complete heart block s/p [employer] dual-chamber pacemaker implanted 2020 Device check [...] MELCHOR MD Referring Physician: Lesly Melchor MD [address] [place] [id number] LATISHA Harman 05/14/23 1202 documented in this encounter [facility] History of Present illness Narrative I agree with the findings in the scanned document. documented in this encounter [facility] 01-11-2023 Note Entered by Yousuf Pierce on January 11, 2023 07:51:29 EDT From: Ana Pierce To: [facility] Sent: 01/11/2023 07:51:29 EDT Subject: Medication Management Submitted: Complete:rivaroxaban (Xarelto 20 mg oral tablet) Signed by Ana Pierce 01/11/2023 07:51:00 EDT Approved with modifications: rivaroxaban (XARELTO 20 MG TABLET 20 Tablet) TAKE 1 TABLET BY MOUTH IN THE EVENING WITH MEALS Qty: 30 tab(s) Days Supply: 30 Refills: 10 Substitutions Allowed Route To Pharmacy - [facility] Signed by Ana Pierce Patient matched by Ana Pierce on 01/11/2023 07:51:09 EDT --------- [facility] To: KAREN ZAPATA, LESLY To MD Sent: January 10, 2023 5:18:47 PM CDT Subject: Medication Management Due: January 11, 2023 1:31:05 PM CDT On Hold Pending Signature Dispensed Drug: rivaroxaban (Xarelto 20 mg oral tablet), TAKE 1 TABLET BY MOUTH IN THE EVENING WITH MEALS Quantity: 30 tab(s) Days Supply: 30 Refills: 10 Substitutions Allowed Notes from Pharmacy: --------- [facility] 06-02-2019 History of Present illness Narrative [...] NICHOLS 1:03 PM documented in this encounter [employer] Phone: Evaluation note Diagnosis History of pulmonary embolism Personal history of pulmonary embolism Hx of deep venous thrombosis Personal history of venous thrombosis and embolism documented in this encounter [employer] Phone: evaluation note* Diagnosis S/P laparoscopic sleeve gastrectomy- Primary documented in this encounter [employer] Phone: evaluation note* Diagnosis Cardiac pacemaker- Primary Cardiac pacemaker in situ Morbid obesity with BMI of 40.0-44.9, adult ([facility]) Complete heart block ([facility]) Atrioventricular block, complete [facility] Diagnosis Cardiac pacemaker- Primary Cardiac pacemaker in situ [facility] Instructions* Stewart Golden DO - 06/02/2019 Discharge Instructions for Bariatric Surgery You had a Laparoscopic Sleeve Gastrectomy (76129) to treat obesity. Recovery from this surgery [...] scheduled appointment, please call the office at [phone]. Call Your Doctor If Any of the [...] sent through Care Everywhere. * Enoxaparin (Lovenox) (Bangladeshi) * enoxaparin (Bangladeshi) documented in this encounter[employer] Phone: InstructionsNot on filedocumented in this encounter [employer] SystemInstructionsNot on filedocumented in this encounter [facility] Summary Purpose Family History No Family History Records FoundNo Family History Records FoundNo Family History Records FoundNo Family History Records FoundNo Family History Records Found Advance Directives No Advanced Directives Records FoundDocuments on File Type Date Recorded Patient Optician Manager Expl anation ACP-Advance Directive ACP-Power of Director Appointment Latest Code Status on File Code Status Date Activated Date Inactivated Comments Full Code 06/01/2019 12:33 PM 06/02/2019 3:05 PM Documents on File Type Date Recorded Patient Optician Manager Expl anation Advance Directives and Living Will Power of Director Appointment Documents on File Type Date Recorded Patient Optician Manager Expl anation Advance Directives and Living Will Power of Director Appointment Latest Code Status on File Code Status Date Activated Date Inactivated Comments Full Code 06/01/2019 12:33 PM Reason for Referral Status Reason Specialty Diagnoses / Procedures Referred By Contact Referred To Contact Pending Review Radiology Diagnoses History of pulmonary embolism Hx of deep venous thrombosis Procedures VL DUP LOWER EXTREMITY VENOUS BILATERAL Consuelo Delgadillo MD [address] [place] [address] Specialty Diagnoses / Procedures Referred By Jihan t Referred To Contact Diagnoses Cardiac pacemaker Procedures Device Interrogation Olaf Cain, NETWORK MANAGEMENT SPECIALIST-LEASE OPERATOR [address] [place] [address] Referral ID Status Reason Start Date Expiration Date V isits Requested Visits Authorized [id number] Pending Review 05/14/2023 05/13/2024 1 1 Additional Source Comments (unrecognized sect ion and content) No Status Records FoundNo Status Records FoundNo Status Records FoundNo Status Records FoundNo Status Records Found INFORMATION SOURCE (unrecogn ized section and content) DATE CREATED AUTHOR 07/14/2019 [facility] DATE CREATED AUTHOR AUTHOR'S ORGANIZ ATION 02/11/2021 [facility] DATE CREATED AUTHOR AUTHOR'S ORGANIZ ATION 05/19/2023 [facility] DATE CREATED AUTHOR AUTHOR'S ORGANIZ ATION 09/29/2023 [facility] DATE CREATED AUTHOR AUTHOR'S ORGANIZ ATION 11/25/2023 [facility] Reason for Visit (unrecogniz ed section and content) Status Reason Specialty Diagnoses / Procedures Referred By Contact Referred To Contact Pending Review Radiology Diagnoses History of pulmonary embolism Hx of deep venous thrombosis Procedures VL DUP LOWER EXTREMITY VENOUS BILATERAL Consuelo Delgadillo MD [address] [place] [address] Status Reason Specialty Diagnoses / Procedures Referre d By Contact Referred To Contact Diagnoses Obesity OBESITY, HYPERTENSION, COPD, HYPOTHYROIDISM, LIPODEMIA Procedures CT LAP, DHARMESH RESTRICT PROC, LONGITUDINAL GASTRECTOMY XI ROBOTIC LAPAROSCOPIC GASTRECTOMY SLEEVE, ENDOSEAL Serafin Shearer MD [address] [place] [address] [facility] Reason Comments Device Check Reason Comments Device Check Care Teams (unrecognized sec tion and content) Change Number Operator Relationship Specialty Start Date End Date Melchor, Lesly A, MD [address] [place] [id number] PCP - General 02/10/16 Change Number Operator Relationship Specialty Start Date End Date Lesly Melchor MD [address] [place] [id number] PCP - General 02/10/16 FOR RECORDS PERTAINING [...] BE BASED ON THE PRIMARY CLINICAL RECORDS. [facility] [employer] [facility]. provides no warranty or guarantee of the accuracy or completeness of information in this document.
[2023-11-28 13:15] VITALS: BP 113/79; PULSE 67; O2SAT 95; BMI 48.2
[2023-11-28] MEDS: LIDOCAINE HCL 20 ML, SODIUM BICARBONATE 2 MEQ INJ (14:12)
--- NOTE | 2023-11-28 14:13 | V.VEINS.HP ---
Vital Signs 11/28/23 13:15 Height 6 ft 3 in Weight 175 kg BMI 48.2 BP 113/79 BP Location Left Radial BP Position Sitting BP Cuff Size Adult BP Source Automatic Cuff Respiration 18 Pulse 67 Pulse Oximetry (%) 95 Varicose Veins Patient in this day for follow up ultrasound post EVLT of bilateral leg perforators. Leonid Chaves MD personally performed the services described in this documentation, as scribed by Grecia Nielsen RDMS in my presence and it is both accurate and complete. Grecia Chaves RDMS am scribing for, and in the presence of, Dr. Leonid Scott and in the presence of the patient. medial thigh: bilateral, knee: bilateral, calf: bilateral, ankle: bilateral and munoz: bilateral burning and sharp 6 11 years Worsened in recent months: Yes standing and sitting bed rest, elevating extremities and compression stockings Reports heaviness, edema and leg edema History of lower extremity trauma: No Superficial thrombophlebitis: No Family history of varicose veins: unknown Has patient had previous lower extremity venous surgery: No Patient has previously received the following treatment(s) for lower extremity varicose veins: Reports none Does patient have a history of : not applicable Does patient intend to have future pregnancies: not applicable Has patient had lower extremity venous scan with relux testing: Yes Support hose used: Yes Problems walking or doing physical activity: Yes How does it affect you: 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 Grecia Chaves RDMS am scribing for, and in the presence of, Dr. Leonid Scott and in the presence of the patient. Status of ROS 10 or more systems reviewed and unremarkable except as noted in history and below Cardiovascular Reports: edema and swelling of feet/ankles Musculoskeletal Reports: extremity pain and extremity swelling Integumentary/Breast Reports: redness, non-healing lesion and changes in skin color [facility] Medical History (Updated 11/06/23 @ 09:27 by Estefania Dhaliwal) Phlebitis and thrombophlebitis of superficial vessels of right lower extremity ?I80.01 - Phlebitis and thrombophlebitis of superficial vessels of right lower extremity (ICD-10) Non-healing lumpectomy wound ?T81.89XA - Other complications of procedures, not elsewhere classified, initial encounter (ICD-10) Other reconstructive surgery as the cause of abnormal reaction of the patient, or of later complication, without mention of misadventure at the time of the procedure ?Y83.4 - Other reconstructive surgery as the cause of abnormal reaction of the patient, or of later complication, without mention of misadventure at the time of the procedure (ICD-10) Cubital tunnel syndrome ?G56.20 - Lesion of ulnar nerve, unspecified upper limb (ICD-10) Pacemaker ?Z95.0 - Presence of cardiac pacemaker (ICD-10) Obesity ?E66.9 - Obesity, unspecified (ICD-10) Hypothyroidism ?E03.9 - Hypothyroidism, unspecified (ICD-10) Osteoarthritis ?M19.90 - Unspecified osteoarthritis, unspecified site (ICD-10) DVT (deep venous thrombosis) ?I82.409 - Acute embolism and thrombosis of unspecified deep veins of unspecified lower extremity (ICD-10) Arrhythmia ?I49.9 - Cardiac arrhythmia, unspecified (ICD-10) PVD (peripheral vascular disease) ?I73.9 - Peripheral vascular disease, unspecified (ICD-10) COPD (chronic obstructive pulmonary disease) ?J44.9 - Chronic obstructive pulmonary disease, unspecified (ICD-10) Asthma ?J45.909 - Unspecified asthma, uncomplicated (ICD-10) Lymphedema ?I89.0 - Lymphedema, not elsewhere classified (ICD-10) Venous insufficiency ?I87.2 - Venous insufficiency (chronic) (peripheral) (ICD-10) Varicose veins of bilateral lower extremities with pain ?I83.813 - Varicose veins of bilateral lower extremities with pain (ICD-10) Surgical History (Updated 11/28/23 @ 14:16 by Grecia Nielsen) Status post ablation of incompetent vein using laser ?Z98.890 - Other specified postprocedural states (ICD-10) H/O gastric sleeve ?Z90.3 - Acquired absence of stomach [part of] (ICD-10) Family History (Updated 11/06/23 @ 09:08 by Estefania Dhaliwal) Other Family history not known due to adoption Social History (Updated 11/06/23 @ 09:09 by Estefania Dhaliwal) Within the past year, how often did you have a drink containing alcohol: never Score interpretation: A score less than 4 is consistent with normal alcohol consumption. Smoking status: Never smoker Non-prescribed substance use: denies use Meds Home Medications and Allergies Home Medications ?Medication ?Instructions ?Recorded ?Confirmed ?Type albuterol sulfate 90 mcg/actuation 1 inh inhalation Q6H 11/06/23 11/06/23 History aerosol inhaler aripiprazole 20 mg tablet (Abilify) 20 mg PO DAILY 11/06/23 11/06/23 History cetirizine 10 mg capsule 10 mg PO DAILY PRN angioedema 11/06/23 11/06/23 History citalopram 20 mg tablet (Celexa) 10 mg PO DAILY 11/06/23 11/06/23 History fluticasone propionate 110 1 inh inhalation BID 11/06/23 11/06/23 History mcg/actuation HFA aerosol inhaler levothyroxine 150 mcg tablet 75 mcg PO DAILY 11/06/23 11/06/23 History (Euthyrox) lorazepam 0.5 mg tablet (Ativan) 0.5 mg PO DAILY 11/06/23 11/06/23 History oxybutynin chloride 10 mg 10 mg PO DAILY 11/06/23 11/06/23 History tablet,extended release 24 hr oxycodone-acetaminophen 5 mg-325 1 tab PO DAILY 11/06/23 11/06/23 History mg tablet (Endocet) rivaroxaban 20 mg tablet (Xarelto) 20 mg PO DAILY 11/06/23 11/06/23 History trazodone 100 mg tablet 50 mg PO DAILY 11/06/23 11/06/23 History zolpidem 5 mg tablet (Ambien) 11/06/23 History Allergies Allergy/AdvReac Type Severity Reaction Status Date / Time No Known Drug Allergies Allergy Verified 10/04/23 14:35 Exam Narrative Exam Narrative: ILeonid MD personally performed the services described in this documentation, as scribed by Grecia Nielsen RDMS in my presence and it is both accurate and complete. I, Grecia Nielsen RDMS, am scribing for, and in the presence of, Dr. Leonid Scott and in the presence of the patient. Constitutional Documenting provider has reviewed patient's vital signs: yes Common normals: oriented x3 Lymph Lymphatic: no lymphedema noted Cardio Common normals: regular rate Rate: regular rate Peripheral pulses: posterior tibial pulses present and dorsalis pedis pulses present Extremity Common normals: normal capillary refill General: edema Right lower extremity: upper leg and lower leg Left lower extremity: upper leg and lower leg Extremity image (back): 1. wound, improved and now closed (11/28/23) Neuro Common normals: oriented x3 Assessment and Plan Assessment and Plan (1) Status post ablation of incompetent vein using laser: (2) Varicose veins of bilateral lower extremities with pain: Plan Plan of care: Risks and benefits of the procedure were discussed at length and informed written consent was obtained.? Time-out completed for verification of correct patient, procedure and site.? Staff present during time-out: Grecia Nielsen RDMS,? [facility]. Time Out Time__761 Patient prepped and procedure performed in usual sterile fashion. Risk of injury related to use of Diode laser and/or laser devices? __BB___ ? Serial number of laser used :? [id number] Control panel self test performed, electrical cords in good condition, floor is dry, basin of water available, fire extinguisher in close proximity_BB__ Polycarbonate goggles available and Laser warning signs outside of doors___BB__ Eye protection provided to patient and staff in room_BB___ Use of laser retardant drapes and dull blackened instruments as directed__BB___ Use of nonflammable prep solutions and use of saline soaked sponges to protect tissues as indicated _BB___ Laser operated by ___LEONID SCOTT MD Physician verbal confirmation laser locked in place__BB__ Laser start time (date and time) __134 Laser stop time(date and time) ___1353 Mathur _8.0___ Site 1: Posterior distal left calf Average laser use __227 Joules Average laser use___28 seconds Site 2: Posterior distal right calf Average laser use __169 Joules Average laser use___21 seconds Pulse continuous ___BB_?? Evaluated patient for signs and symptoms of electrical injury __BB___ ? Skin clear at insertion site __BB___ Patient tolerated procedure well.? Bilateral leg Coban dressing applied to lower legs.? Will return on 12/12/23 for bilateral leg limited venous ultrasound and exam. Procedures Procedure Note Procedure: EVLT of bilateral leg perforators ILeonid MD personally performed the services described in this documentation, as scribed by Grecia Nielsen RDMS in my presence and it is both accurate and complete. I, Grecia Nielsen RDMS, am scribing for, and in the presence of, Dr. Leonid Scott and in the presence of the patient.
--- NOTE | 2023-11-28 14:30 | P.DS_ITS ---
Discharge Plan Discharge Disposition: Home, Self-Care Outpatient Diagnostics: [facility] Facility EST LMTD (Routine) Timeframe: 2 Weeks Facility: [facility] - Location: Vein Center Ordered By: Trino Israel VC EXT Venous YOAN Limited (Routine) Timeframe: 2 Weeks Facility: [facility] - Location: Vein Center Ordered By: Trino Israel Follow Up Appointments: 12/12/23 Plan of Treatment: Patient to return for bilateral leg venous ultrasound limited and consult with physician on 12/12/23 Patient Instructions: Endovenous Ablation (DC) Print Language: Bhutanese Discharge Date/Time: 11/28/23 14:47
== END 2023-11-28 14:47 | disposition home or self-care (01) ==
PROVIDERS: PCP Radiology Diagnostic Radiology; Visit Provider Radiology Diagnostic Radiology
DX: I83.813 Varicose veins of bilateral lower extremities with pain (principal)
CPT/HCPCS: 36478

== ENCOUNTER 2023-12-12 08:40 | Outpatient (OUT) | payer MEDICARE, MEDICAID, SELFPAY ==
--- NOTE | 2023-12-12 08:42 | VEIN_ITS ---
Patient Name: YRN RICARDO MR#: [id number] : 1960 Exam Date: 12/12/2023 Ordering Doctor: DR TRINO ISRAEL M.D. RADIOLOGY REPORT PROCEDURE: VC EXT VENOUS YOAN LIMITED COMPARISON: None. INDICATIONS: I80.03 - Phlebitis and thrombophlebitis of superficial ve... TECHNIQUE: Lower extremity nuñez scale and Duplex Doppler evaluation of the deep venous system from the inguinal ligament through the calf veins. FINDINGS: REGION: Right lower extremity. THROMBI: Acute occlusive thrombus. Heat induced thrombus visualized at mid/post calf nursing officer. COMPRESSIBILITY: Non-compressible segments. FLOW: Areas on no flow. OTHER: REGION: Left lower extremity. THROMBI: Acute and chronic appearing thrombi.Heat induced thrombus visualized at mid/post calf nursing officer. COMPRESSIBILITY: Non-compressible segments. FLOW: Areas on no flow. OTHER: *Exam performed in accordance with [facility] practice guidelines- Peripheral venous ultrasound, July 30, 2009. 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 No deep vein thrombus Dictated by: Trino Israel MD on 12/12/2023 at 10:12 Approved by: Trino Israel MD on 12/12/2023 at 10:13
--- NOTE | 2023-12-12 08:42 | VEIN_ITS ---
Patient Name: YRN RICARDO MR#: [id number] : 1960 Exam Date: 12/12/2023 Ordering Doctor: DR TRINO ISRAEL M.D. RADIOLOGY REPORT PROCEDURE: FACILITY EST LMTD VEIN CENTER - OFFICE VISIT FOLLOW UP COMPARISON: [facility] EST LMTD, 11/20/2023. [facility] EST LMTD, 10/31/2023. PROGRESS NOTES: The patient reports no significant problems following intravenous laser ablation of bilateral incompetent perforating veins. The patient has worn his compression wraps as directed. The patient reports marked improvement in bilateral lower extremity swelling skin thickening and erythema. Physical exam demonstrates few scattered venous stasis ulcerations on the right leg, markedly improved from his initial presenting symptoms. There is marked decrease in swelling and skin thickening. Review of the ultrasound performed the same day demonstrates occlusive thrombus extending throughout the bilateral incompetent perforating veins. No deep vein thrombus. The patient expressed a desire to proceed with treatment of varicose veins with micro foam chemical ablation. VEIN/[facility] EST LMTD IMPRESSION: 1. Successful ablation of treated bilateral incompetent perforating veins 2. Persistent bilateral incompetent varicose veins. PLAN: Micro foam chemical ablation incompetent varicose veins Nurse notes, history and physical were reviewed and confirmed, see attached forms. The nurse was present throughout the physical exam and consultation Dictated by: Trino Israel MD on 12/12/2023 at 10:13 Approved by: Trino Israel MD on 12/12/2023 at 10:15
--- OUTSIDE RECORDS SUMMARY | 2023-12-12 08:47 | XMS_ITS | CCD ---
Author Organization [facility] Inform ion Partnership [facility] Care Team Providers Care Eviction Specialist Name Role Phone SERAFIN SHEARER Referring Unavailable LESLY MELCHOR Primary Care Unavailable SERAFIN SHEARER Referring Unavailable LESLY MECLHOR Primary Care Unavailable SERAFIN SHEARER Admitting Unavailable SERAFIN SHEARER Attending Unavailable LESLY MELCHOR Primary Care Unavailable Lesly Melchor Primary Care Provider CONSUELO DELGADILLO Referring Unavailable LESLY MELCHOR Primary Care Unavailable Lesly Melchor Primary Care Provider Lesly Melchor MD Primary Care Provider [phone] LESLY MELCHOR Referring Unavailable LESLY MELCHOR Primary Care Unavailable OLAF CAIN Attending Unavailab LESLY Concepcion Referring Unavailable LESLY MELCHOR Primary Care Unavailable Melo Quiñones Admitting Unavailab Melo Frederick Attending Unavailab Lesly Concepcion Primary Care Unavailable PETER Redmond Admitting Unavailable [...] Unavailable Dolce, Srinivas R Admitting Unavailable Dolce, Srinivsa R Attending Unavailable KAREN ZAPATA, LESLY To [...] Attending Unavailable KAREN ZAPATA, LESLY To Primary [facility] Unavailable Dolce, Srinivas R Admitting Unavailable Dolce, Srinivas R Attending Unavailable KAREN ZAPATA, LESLY To Primary Care Unavailable PETER Redmond Attending Unavailable PETER Rdemond Admitting Unavailable KAREN ZAPATA, LESLY To Primary [facility] Unavailable Dolce, Srinivas R Admitting Unavailable Dolce, Srinivas R Attending Unavailable LESLY MELCHOR MD Primary Care Unavailable Allergies Allergy Classification Reported Allergen(s) Allergy Type Date of Onset Reaction(s) Facility (1 source) No Known Medication Allergies; Translations: [No Known Medication Allergies] Propensity to adverse reactions to drug (disorder) [facility] Repository Medications Current Medications Medication Drug [...] hours as needed for pain. 0 Active [id number] 200 actuat albuterol 0.09 mg/actuat metered dose [...] 07/23/2018 Active take 1 capsule by mo [facility] in the morning levothyroxine sodium (TIROSINT) 150 [...] aftercare (1 source) Drug therapy finding; Translations: [terminal clerk (current) use of anticoagulants] Onset: 9 12-03-2018 [...] Value Interpretation Reference Range Facility Coding Summaryon 12-05-2023 Coding Summary HTMLBase 64 UehualnsFFo5uIf+PGhl YWQ+PJ6JDEExK72ugXPh aJ1hE3VEZSvDYjlpUELL RGaZOfWppqWiHQ3zjFPh ZXJu IC8+HU0uAIBrXbwutLNp k7A4wFI6Q43uqy1kWCpe aCL2JCHkYwKhygttj1xp zBr4JLgdTcryBnZf SZZpaF76INS9jK73Iu05 uCDwfCRna5exfTu0UwYw ZMDbAVQ5rNbaSAuij7Kq CPQbZ19gvRBsb9K6 IGNvbGxhcHNlOyBlbXB0 qQ9pUYmpefnwq4dsaukk Dbl3eh01xUJyn8V4fKG0 E3XjsrB9NZVhtDOp LahblGDLcS1lrsdau4lt dekyEmHfLODeUHp2CSv9 UBIgoNpzRaZyEG08MVH0 BNXjcsQyT1JsZBUg lGblEzT7t0I0Oj6DJ6ZB EonzB3BLXVWOCFifvVJ+ PW46ky33U7BxQqkrMky4 XXXqFLQ8kFI5qJ8m QNVgRQeeg3T8rVT2I7Mu zfVhya3dn7nqRDUyZYaw S91voMJph1R7LZQudWK1 SNPqmEqcOvJbqR40 Oyc+CBWerRwsx8KjPlqh q8nzv9qdfEj3JjfpJJOt yfCiwFyyGGU6q5TtBz2i PXKirHG4bEK8xL2d ZkLfNoZ4FBseA274KgGg zBKhYzjxJ71wT8EvlJD+ TVTmDay8DGMlbSmjCV3k D7FdBPIhpekdtKAt mQscQW9wUBWxaktrCXIy hO5rLYKdU6c9VgOcAcS4 VCkgZ1EdHZWslohlHr45 jG2zOaRnNjU8QPbd U9EhasL1QATafMYoESif UQL1M72pa2W1ULEdEJPj AJI6rIM7zV4rlSrxvcbk bGVmdDsgdmVydGlj OTfrGQosK595LPGjjBbm PkNvZGluZyBEYXRlOiAg MDgvMDEvMjAyNDwvdGQ+ DQJpJMW7aKgmBKUj gBHnAHcdDi6jcPmwqKam UI8gQIFtowteWLVazO0h KCAtbKUngZnaGW9gNSFt tnthh712BkUmSWQ7 MJYehFNsK1WojD7qJzTn YDGxPSAfG0RkwHPjOCjx M762YZocQkK8VLPmrrAg A5EkYTXxcJfxIzF0 m5B6Bq8Yr5YmgydxX8Tu qVGoHfNdOjlzPCh1C0Op PjwvdHI+NG56EUXgUX83 YSs7BEB2yNtjIUww DKOoW6IheU6bJoVrESSh ZGRkOyc+PHRhYmxlIHdp ZHRoPScxMDAlJyBzdHls ZJ7bMr2uTOYhCPPv tItnaPLcFkOcf3qhPKUc SXznDM6vnXncX4SsnZN0 NLXcs5p0Uc63I31hZ8Ls dXA+XJZyjWZ5mDF1 xN8nJoHxJzE8QWakV739 AjOelTTrSawsk3tum1tc cPp4CdN7OPQhbxCbbTek HWN5l5XwAo09G43f IHdpZHRoPSIxNSUiIHZh vTmijg4irJ9jYw2+PGNv zJE7aTV1zT4mAcCjLhM8 UCdfU067RaQgsFFj Rvloq3tid1wyjBb1OcRz TSKtfuRkmJaoKNG5n6Lq Yu22H2GnoNdlm2OkPqy7 yn62wJUbd6I4jTV2 E0JlKZZglunirKHkaRri CT2cWAKngfjgHHMxcF1r MSXtD6w0OtUiAcR8LFsg J1LfwjJ2TTKcaAQf OIZibRXOaU5ukvsks7jl uvsfAnMqYVTgWBi9ILm0 HPYvvJshHmErIHT9MzW1 FVY4dVPmjV1hiDmq orqjoA4dIfd+DEK3uYWr oBAQWK5uFjmxuDB+PHRk QAX4cYlqUTbdPPAvtH9g DLCuX0x6RfAnZyD3 QBwpD0TafmR7ARZxvOZp TXYheLTOkH1rzpwxy8ej fvfsTgGuTKGaETp7VTx5 LWFsaWduOiBsZWZ0 SwJ6BRH6zDDknS5ncLdj kqpqeP0pNul+QmlydGgg THQ7OEc8A9EoXec9NWFz iZirAD2owJPjEMkz Zx0svOjwdKupHG2wPIRj napyr629HgFrf4vqCVNn pSPrQLumGBR0V75hk8D1 MHGwHBXyMUM6kBI0 vU4qiBcilesmlRZkkWlb uaDttXnnVMhmZGmjP071 YDNrhPexXdHgKSs6X4Kp Nns9OUKyuZdaRV0p cAPkYTigNz4fyDftmYab IT0rBWBkjpugo752ZwQi t1ynUCNaxLIrFRxzNLB0 L74hd0X4PMEhANFp MWB3xDF1rN9seUieifdj bGVmdDsgdmVydGljYWwt JOcaZ114JKWxkAnqYaNn nMk2F0AaVvq8KVTc bOynBK9akZHvTGbmSx9w cNfcsRhyZJ1uCPCmeake c454XoNmx2iySJXmkOOz DRygFSD4H36lb1W7 HLRwWDPnOZW1wAT9kF2v bGlnbjogbGVmdDsgdmVy gUinYJmsHKimP365OHCu cDsnPlBhdGllbnQg KLzdIBu6C1XjOfrztWQ+ XG14GNDxSD82lSSvkHRb r1rpyIj5IbLrNVMbSVC4 hTjrIVgzp4UsPPBc V11lyOPxx8D3SBAddRsd nSNqZvKibNO7qG4gEVhn muaih9tcoveqTvlba8rz mf85nG81Y67xJTdv ZHRoPSIzMCUiIHZhbGln cz2skZ3dOx4+PGNvbCB3 wPU4fR2mNXJjUiR6VUcs W457DwTukBNsEhmx i2vik3tfsIr8HjD6HTRw yhDlxMehLHH9n3CxLl96 L71lOCimBQQcNDFoTTEy NSHrqFbhzv8idX9s Ii8+KKJywMO2eBZ9nT0e WzCrCxE4JUccQ436FxOe pDYcQxahQ81dM8DamPT+ ADFeMpu9YDZjwPzs RI1diVGlHWeuCc1xHAT8 DcHsAiIeDBauU5ZwHVZk ogxblamdvFG0WEZbMKXa rT14Gf9zdGmpKQOb uWRPuB0ehgbcv7cebmpl JyMbYFFuYGq8CPa9OCTb dOxeEuQuTMY1QnC6OZB0 zPAyyH4jgZndozdf yW6mM8GhUWCzsnxdSu87 gA0jNhUxJtJ0XVvoRin+ W1FWDyptHE6OV5zLKFwp SzwvdGQ+PHRkIHN0 fVxkKPkbAYAumQ4uKQJb C3j9TcZsCkS0NTguV1Pw COVphjrsNv68sF6iLvJp BqS3JZglX6PxidS2 ZZNoyOYpMWvsIXG6F75l v8K0PPPwTLRiKUI3vAE6 kR0osKneuqqcfRKixWdx dmVydGljYWwtYWxp I266OKEqhNlyZcNtXzW3 VcE6WtC8G1IyDfd4DWTj eIboOL0suEVgIQmiVt1y yWuriInkNB1fAZJn bzmiVQLvtC1jMHMpxTDo lYlkVB2cSQNwppzoe219 VlRjPQA7TLKzkJWdF7Ak zE7mMjQvHNAyFBAe V7ByuZHkTPjjE452JEwu YdZ6UZHjzhYlY1VpHFZb bWlmKrO8o3Z7Wf67ZYRZ ZWFyczwvdGQ+PHRk LBG7mFsqXUlqMKVmzH2w GOGnT0e2UlYlSxD3ACif U1EjWZEdhohxKy73yL4f IhKtQgM0CStiA3Zo twA5DFJxlJCqWKsvPQO4 U65kp2I4QZKuPRHdYEP5 wEX1yY8kqRrbbvpzfVOq dDsgdmVydGljYWwt ACgnD788XEXktMnvVw2Y SXE3U8GnCow5WUEgbHps FZ1qiJOoMDwtJr1yfXfy oIgcCW0sSOLoktbl YNFyaL4yWGQlcAHcwKkh YS5hUBJmycpwc983DpNq RCM5VAGkcCQgK9WcxU2e AxJzKZXnJYTwP0Ky vHFhYEyhS020GDvrWhV1 GPWqvvRvQ9PrGCEnbQus SeI7d4S8Jr2SLJzvxBC+ FA25am98A6MyFzvi Fom4KPMgWEN8hRS8gD8w KCLnZVtlc5T1nFQ9F5Nc gxSsan2cp3ckDLYmFMxz Y87jdEAvy1T2XCNc fLM0LYGwrSxnKiNuwR27 Oyc+MUVcgBhco0HfLrop n7muc1dlzNa5DdPnOBEh jmOxsRlgUYL2l8Yt In85L38dGIqhWYLzQYFv PHRcJYDfhYhkji7hnB2x Ii8+TKFlaAO9nFS9aT1x LvIcEuW4IHrrU519 RlGnjDNeFhxhw4hdg2sd dDc4SuSeZHPxnhRlrMec HCO1v7JwBq94H4BswPdm r5ZmBho2sp80iBSp t6F4xDT2S8SyWTSqlpok ySBuoSzvXN2tAPKrzzmc MGJxbZ3uJERrB5p5WaNc ZbE8PKexC5FzotR1 OTFwfUNgGRZmcKNFlF9a eojgk7eufzmaOqObFGAw RYw2DIx0NPOehNkyBxXq SUZ7ReI8ZQA5eISf fA8ddZyxqjqyqI1mOjv+ QBz1i5kwxXDyNY5mhZD6 MU63YA70dOFol8H0zJT9 O2LvILQzftkxgfld vCM8ROKyEBLloV54Ee9n hJmmPa6iJHJgEBK6EJCc nSIzC1YpjL9uGhTuCKYr MXNqT8IliFAjJFbi C686RIhaSwE3ZBFroxVo O7MfSXVecLcdKpR8z0F9 Ch7XYM18MT58MG94jUEc o3C0fSC3V7SlRNIm wacwupvyuOV6KHWdZBEt wU41Nv7qhBdzHo9iKZLb VIP6QOCbqXRoE6NutT4w MmXsMTQxRCCdX6Jt gZXnSZbuG206HJeqRdK7 AXDdrbOpK4AgTJCbtWgf QqO5r6A3Cn9YHs70CC64 EA47qNZlq0K9nKC7 K2RxIQSmzuqgmyvtvFU5 PSBeCSHzbN87Iv9gsCsn Iu0nCRYkIZH7ASOpoFBm I0ItfH7hWwLaJYXl SGQpS6KalVDtCKatP341 QDxbZoH1NADgfdOqD9Wy IADkbDlcOkY3y3A5Kx8P FQxnqwg7U9CzTlks dHI+IZ48INHhUD15mAZg vYWpt0rlwIp0KyWnKVOf NJG6bJrnLIyhe4AoGMKz V82wfTPmy6R1BZUf bGx (more content not included)... [facility] Coding Summaryon 12-02-2023 Coding Summary HTMLBase 64 HpwxwsaoIKf9hTe+PGhl YWQ+MF9EPQOhT50bgIXu uW4lL1OHYOsUNhyxBHOI BYtRTnVafsOpFI3vaAJf ZXJu IC8+IL4dGERhGzfzgQXa a1U8mAC8D23yvu5gDOsz cXC0WIHnAxSuzextd9nh wGy2BOggPkiuVnDq BCHulC57FGO7rO52If58 sGVyvJEkc0ctaZq7WpBt PRPqSZK5oIsvMEant3Nb YGVlT82rgSOky4H4 IGNvbGxhcHNlOyBlbXB0 aC6wOWdxeobug8vicvqs Npb0yo31jYSky1V2nEU2 F2VsooB6CKUejYBp WxwmeBZUoA9cbbces7ql mbudFlDfSCQmFJw9SNr1 NXJopTbqXfVoDN48NBV6 WBXkinFaL3JnPJKw sKhlUtP8l7B8Rx8FO4QN UlozG2YQPVWLZMxzgSG+ HK60ob62H0GnQseuGjh4 AGXxMSI7iPA4fP2a HLOvXIoht9G4kIE3V2Ul roXvrx3rx8vjXERyAZdr F49ucYMzq5K4VFPjoOG5 KEVmzIyoHyEugE30 Oyc+UOVjfUkfc6KuThtq e6jyp0wpiGv2RbyrFQAo ufDnrUogQHD7j9VkAz1f MLAkcRC3iFT7qB7c YvQdKpV1NMpmN055AjQy rLZwGcocW76mJ5JwlQG+ XRWrEpo4FWQofYoxWE2f B5AkAXFczzdegKDo iJguCW8dDGQddgetVXUf bD5dLPNfB5s5BwTuOpL4 UAvhI3JcBPUscxdiZp39 tO6fUsFkIqL8KHfx O8YnsrH4SJXuyXNuYYwh ADU7P82pw4C3FNQbWAEi VNN0lUC4xA3bbBiocmxv bGVmdDsgdmVydGlj SHmzBGcsM281IMJnbFsx PkNvZGluZyBEYXRlOiAg MDcvMjkvMjAyNDwvdGQ+ AYBtQJG2tDqhFPJi dCAuTRqaNp9gpEhcsOip IU4lRXUgmpcvJWGcdS9v KCOjtPNifEtpMZ8iNDIh bdylc262GeHwMDR1 PKNapEFrS6AxnU2mLcLx ZMYlIFJwD2RriRJnYKti V581IKbgEeM9YVTyrdZw Q2MlSWYaxAafAhB2 d9J6Nq7Sh8MqknthJ8Ay eFLpBiRvYzinVPg8O3Yk PjwvdHI+OX89WRWeUM14 PLy2KDI9cZwfMEst ACSwL1YdaE9aBgWbNNNh ZGRkOyc+PHRhYmxlIHdp ZHRoPScxMDAlJyBzdHls HQ3kVp7tGQVwXVPe oYoqvRSuLtJhl3lhCUVe GPlePE5yiJfvP4VrtLB4 CQKeu0k7Ys24X58hX4Fa dXA+RISyjWK9sVT5 sA2eIyZzIkU1DCgtZ548 RqZmjFLsPokgu9iud2as gPq7JpN0ZFGguqEdgRst DSQ5k2TvRh32E44m IHdpZHRoPSIxNSUiIHZh oMrfmc2ipP4bUz4+PGNv tUG0dLB5xK4jBtIhGnO5 KBjtK787PiCbtDOj Acntj7cic8abaJd9UgSm NOQvpjOtnQwjGCD8t7Rx Iy72G1SkbAygo7VvRzg6 xb99rWCta4D9xRC8 P3ToYHObrhbbfXVvqSgd EY8zNIUjjzmhBIWuxF3m IILfW8c5IvPoKzD6SHxy I5NkszT5GOOtiJEp HWOgcXTYnH0ibiyjn3ig samwMnRaRGSvBMj4XRc4 TAMygYtiOlIwEZN7QtV1 SKZ3pNGybT6dtQwq rxorqT7iKpf+XDF9wBOx oNPXDH7xSrxbrRC+PHRk WAF7dDynIMkqVQLeqH8k VHAtM9p3BgBgNhN5 WPylN2IjkiT7PWGadOVs XFSgqYITfX3yckcfs3ts absrXfYhXFHjLTy7FWj1 LWFsaWduOiBsZWZ0 FcZ8EMI8eSBkrW9diIck reiwqV8wMxz+QmlydGgg ZAU0SLf0Y7MySee3YGVl zJaiCY6kaADtIRht Kl3fdTmkvQniGN0yVCVq wowoc665DyCrx7auOXLf uNBbHDssBXG2J14cp0K2 VBThBUQbTKD5uBU5 uB0keWxbrgqrzAWyfAlo heJqmKlpRFmzFKvsG804 QXHxiPmcIhKtLPz1O9Rc Cox2QPXlxGloQS4g dMXgDPryCx6ojQshuYur XN9gIKPczddkx493ElDj a0coVYVipBWxBVcbUYP2 O22yb8B9YAMlTPAa VPC1wWI6sY0gvLfmhaxj bGVmdDsgdmVydGljYWwt UQbzP115IWYwsPwpXxIj tDw7L6BxIwi2EGKo sMcvEU2mvIJvMRzcTr3s qNcuyLpaIE2dZYAczsdu o257LmBek1usYVEujDOs HLagFLN9Z08ui3A8 RVWvGBUaLZY2kMA0mU4u bGlnbjogbGVmdDsgdmVy sShqDRwwEHvtL307GPQh cDsnPlBhdGllbnQg SPdoFLy4X2RcGynegHI+ VE92PXBaOQ87aKBkgFCs b5ytbGd3JgYtZUDzGOL3 lBeyJRrcd2OjHDPd W10xuLVsr3V1AQUgmXnj mZUkWfZhlHI0tA9dMSmw xrxzg9setcvkUcxog6wn gd23wD51F83wOStb ZHRoPSIzMCUiIHZhbGln nr5xfZ6qZx1+PGNvbCB3 zZP3kP0iPVUdIjA3DJrr H129EiYonOQvSuqt t0jwb1nfgLk8VvX1RBDp lsDvjGglNVP1y8ArPh66 T67tUKpoYBGlJNCeYQXy DZTgfWymcy1vbK0w Ii8+DBJbxJF9lTO9iT1m NoJzFiM3VExzM472PyCd sELnOvibX88sK6SieIG+ VEEhAks1ARVjbGvt ST0hdYDmGKccCp4oPBL7 BtObOdFzEBwiH7ZaCZKh datmdwsxyJH7WFXnPQNw iG21Yo6dbBzpYLZa zJZEcM8kcsoaw8cwavyk OqSiYXIvKLn8QFu3FBBy vOktJnRkCIC9TtZ4ONG4 hGYtpY3fbUwdpoqw tK2hV7DfBKOyvoeuGn42 mC6eWrCiMkL2HQnvDyv+ S4VRVuatFD8PG3tTCQlr SzwvdGQ+PHRkIHN0 cXmoJOzaZDAmhT8xTGZz T4a7ObIkQcY5THasW5Nq LQVdxxptZe26yG6tVgPb NcT1EKukR5WmkkR5 PLNecPQtYXskPCJ8F56y k9R5FFHdBKLbXSF9tBF9 sA0vxObzljpnsPOkoIsi dmVydGljYWwtYWxp G746NEEliEzzLpRtEoG3 BhL6IcO5A4IaWuu7CQDo lJumRA3svELkSMqcHb5s uKlbqHcwQM9rQBKk rctwTAAvnT7fKXIhfPOz kAsmNF3sFKYkjbajj655 RbYpHUC2OLEoxOKyU3Ga yM9bIcTpYZTrGZUg B4BrnFOmRUcxV468ZGjs QeR5PLYojoOuQ8ElPIYg yMzyOgQ4r2D1Gt84NWZU ZWFyczwvdGQ+PHRk BCG8kDsuQMjkZAXqpX3y ATEnR7o6CsVkYoI7FPmc C5TvGGExijnhZe35xR2y YsWzFsE2CWalA7Fl ltX4BFDboTAxGAidGWH8 K77zg4Y2VZJmJDErFPE3 iYY6eK5hwDbdjotgvCQn dDsgdmVydGljYWwt ECxwT046TRWkfUmlLb7H IVZ6L3JtBbs9PPDimTsb XS2moKOpHMmkIy3bfCly lXtvZK1ePNHhmsuw LAUzdV0sLTFvnOCitMky ND7bEOGnzjgry671WmVf YFR1WBJyaKQyF5ItaF3y GpLvNVMnPXVqY6Rp bCMvVHksG052UOspFtK5 AMEhzcAlM8VdZAMfySlu MkS4u9Q6Hq4AUXoliCT+ VA18bg81J0VyZujg Dbc3UZTgUUO3bWC7fB7n SZGeAMsvl6K3wZZ6C8Bw ttSqev1ke9evHDQeFUnf M61kyGWga4L4LCYb nEQ9TMUlqIsqVcBqnJ35 Oyc+CRWrxTzzt8XrVden d9zbm0otmVp9NfMaYHLz feDdwIifQHP8a1Sc Gt86Y33oXFivTIXsVXTm COJoEPVsfOkpgw4prU1c Ii8+RHTzjBX5aBK2jO1p FaFzXtC3RIkeS043 CjFblGHtKzlzv1qml0fe wKf3EjRrKTCullFdhKmg IHY4p7AbYn96S7IlfAta l9KoErw2qi33rAFw m1M0hLD9S0KfCBEuxuxc mMRjwOihHP9cZEIdlmjp JNGxxV4rZAQxT5h9GuBx XxV6HQevV2NhvoY4 GXXccXEfATViqTLQdR2l hdoqj8cnnpooEnHlUJGt CKv1XJv7MVFcxRhkQtUn YMG7NeG9SDF5sSYu fR2ozEoppdyflU3iHfb+ IJz1l7sioYIbYX8jsWO2 SV65YD65xNEom9H4sEG1 J2FxOZQnbxlndvnz kMZ7AZGdIGKooG86Dz2a gQexJc2qKKSwZPV4DHUf aJIfN1EgiI6kEwKnMZUj MJUiQ5OpnFBpDTsz O509WFeiGlS7WUQcqvWc H4GxRKPkmIkfCjN0o4F1 Qv6WWI82DI91SX83wGQu i2Y7oHS9U5XlNDFa xhuevllylLS1PPSnFHOi vE98Pm5jeRtxVr2hWCXd WWQ5LGXjuCRoI6OtcK4f KsAmZJBaZILwF5Ht iJMmBNvtT389HTxyAkK2 GJFmcvKlP0UmHKHamBgt ZtD3b7U2Ug2HCf13QD76 JK25kOIca4B3lCR3 B1RoXWObsgjqmiyidVK8 TWLsRHXhqD75Uq1dkGos Jw9xYVHjIUQ5HNUodZHo T2TntP0mYsHbOURs AFEpN7SahXHtNVmeL808 IDnoZqW8RLBmbiVvH2Ex QUJzlRhbPdQ4k8T8Yh6E TZowloj4H1KaKqbi dHI+IE31JSMpLZ63aGOv zCGli2kpxQo6HrEsIFYg FSO9uBffTFzkd5OrYJHe D14evHCqq2R5ECJn bGx (more content not included)... [facility] Wound Care Noteon 11-25-2023 Wound Care Note [email or web address] [id number] [email or web address] 11-13-2023 Coding Summary HTMLBase 64 MlrnrfxqVNk9rDg+PGhl YWQ+QM4QZRHnC03adEKb nP3jU3ZWVZaELqctCQYC LTuIDlNsujSwGT2idUVy ZXJu IC8+NY3vPZGfFwodnNTq v6C5kSA5D56qzd7kCGsd tQQ5WVTlVoPvtopbp4ie aNd7EZtdEsewHjXl GBIzlV46DFJ4oE72Hu35 aFIthVAfx4wzlJi8WvUn YOVmNLM3gZgqZSopx3Kd ILEtH57qvZHnd0F7 IGNvbGxhcHNlOyBlbXB0 sF9fHIokhggob8irggcd Mzs9bz15hVQsk3Y0oFZ2 D3MjbnU2DNWboFQl EhzitCDCtI1fxsfvj1bj ykdxRwEnGKQeSQn6FPe9 GQBbgYolGuJzJO25YOV8 TWBoncTtO5UmMLKq qEpvUvU3n4U9Xc1ST7KU HkphA2JCLGHEPMvfkEI+ FF18sk22F2ZtGmngUkz6 JYTeOFD1tBA7fL9b BRUePNwwa1C7zRI2Y7Bx meHigs3ul8rvTCZbJQre L26ryRLur8P8DODldIM4 BYLnaCdxXyJdbJ10 Oyc+EVHaiFgqz1SjCefl b2lre2slrUs3ImkkIUCj seDczItxFCF8j9ZsHi0m EQSkiLQ4tCK7xM5z CcOiYiL6CWvcS273PyXw oTWcBsyrL09cM4YltLK+ YEPwUke8RYZftGnfZZ6x S7WeESPrwdduqEWm sXvwXG6vLIKjeetqTIHf fR7yAPAqZ1m2VqMdKnZ2 PYocX8TdXVEiixgkBv69 sG6yBmPqRzS4TPig V9JwwkT9CHOjyTWoYYpa UIU4K23lw0O7QMLhBCUw NQK9jOR7zJ6uaHvydnqj bGVmdDsgdmVydGlj NLmeKVoxK953PLPtcOcq PkNvZGluZyBEYXRlOiAg MDcvMTAvMjAyNDwvdGQ+ TPDfAVZ4gRfxVBSm jHGsJOqpWn9ucZrqdSeu SH5cNYKywdmmMVGhgE7k MFHxsZJwpYosJN2uIYKm xrslb573JuNkETA5 YEEqzMNrD2PxlE3jXaHg TVYeIWJeH0EupTSxRVbe C411IEmyMtT6ZHGaepOa S3AdEAQvmIffWcB0 n0C6Gt7Ac5LphyqoT7Qv lDVhVpSuCyksQYp6Y6He PjwvdHI+XM70SWWcFS78 MEk9IRE0bRxgFYxp CTKuH4EoaH6cZpBmSIOk ZGRkOyc+PHRhYmxlIHdp ZHRoPScxMDAlJyBzdHls CJ8eRs6tFBPgCOXc zBgweJEcNaYme4ymSFMb TCkxLB7tyFvsU8XusQJ3 CQCdi8k5Zc54J64eV9Lv dXA+BTGvcMZ3pWF6 vH5sDoUhEdX8KFrsO207 ZgTgbFDkOomaf2ryn5ly gAu9TzM6SYMgmyYdoSqm GXG9v1OgSk38B75y IHdpZHRoPSIxNSUiIHZh gDzcou5ohL4jGd5+PGNv wTZ1wUA2xO8gQaZwKbS4 JSerZ579ItLmeHZx Lkbfe7grh9etfKo6SyJa SHPknsGdfQfjURY2u0Eb Oe77Q9AseWdci4KbGtl2 lb99bRJpc3E4jPI0 K6KcQUEnxjovlBXooXtl UR0bJDDbfffoKDDlpY9d FPBzM0s7XqTzCkF9NUmh I4UfffX5YKWaoZVe VEDqtLPMqE1lkxzlp9nc ndwkJnHaFQVcFBy3HIp2 ODZdiPosPmEhWVI3PwH7 QIH8jGWfsW9ueKso wkkmuP6dHle+ATA0pCLk qRNQZR5cTlwnsQC+PHRk QVZ0cSgtRAjaCMRcmW1k VHMzF4j6XeNcAjE9 TWvlP4GuwiA2NXQbbPEe JUZzkOQVtU0cjvimc3xg thmtKeZcEONpLPi3LZq4 LWFsaWduOiBsZWZ0 XyD8SMK5tDMscK1muMbb smvesJ1tExt+QmlydGgg WAP5LDz6C5UaBol5UHWm zQtmHY6izBRaOJjp Da7goPkuaYngIQ4oYSCh uqiri334RtWpd4uvUPLc jWUmCRggTGQ2K55xa3N0 TNRpNQUeURL5jBX4 iG9pyRyzicopuHPouHfv leWuoQmgUObbXKtvR865 JTJijGoyItQjBVk2S7Op Nge9GQAljGowDZ7y uOYjBWqaUp9raLyihNik YE6cCKOzewshd500DoHa d2pqYPXppXXhHAlwHRM6 A66dg3J4JLUwPFZq MEH9lRK1mS7whXfclydp bGVmdDsgdmVydGljYWwt GPwfO810OYXsmRsgIoRh cNv7T1YpVjs1HWMl hOvlBK3flCLxEBpcDd0v pBtusUoiUD8hLRJerrfg v078CpUst2qpFOTjwZZv SVauTDN2D30nf6U4 KBDdDYPgMHH7xQI4eC8b bGlnbjogbGVmdDsgdmVy cJsmKSzqWXvrT995FIXu cDsnPlBhdGllbnQg MAwqHSr9S1UeMzbrtFJ+ NN28ASXoCB99iZRwhJKq d7usvWe6HhPmMLIqGKP3 lEsmLOehp4QqUTKv P42pqTJhl7J8COEqtAvq uZBkVeBmcQO5nM8sGBom yiczi8mmevvbKpkgw9pk nm21zS86M79wVYjw ZHRoPSIzMCUiIHZhbGln vh2qeX7aJa6+PGNvbCB3 zJJ8bU4iACKiPaJ1GEnf J448KeYqqFIsCexq g4qgg1karYb3HgM0FCWy nsTmcOnbEBO4z7NuMb04 Y65gJOlfEPJuRTCdRSHp AMApwYnvwg5beJ1h Ii8+XHHerCS3pTA3vN5t VeRxCzL7APmlF603HuZh lBOcIjmmK29uT3PtwCT+ RMRhQbo7FFDebLlx GW1zxYJgSXoxNk4wNKI5 QwJqFjOrKBtiO4WuBLFd zzptrnmqoRJ6QZFuNWQl wV51Wb0erLihAVKc aDPVuT1gdgwdr7bnxmqa ExAjLSJfDZi7MAo5UUEf bUcoZsPkVNO9MmE0OKH9 zKVafW7efXkvgfny wZ4wW6CqXZFlnrmbOs98 mH7bEvDiVoX5CXpnJyp+ A9NFUtfaVW3BQ4aWHYaf SzwvdGQ+PHRkIHN0 oYsvAEswYCJhxZ4yCPGb A3g1TcXrLrU9RCxeL6Ep CKOszbtqLi92xX0mPaBk TmE9GQvrH7RiekW6 ESTlxOZiWGseMIL3D28g z7K2VXYcLUGlGVB8uLZ8 lX2gjCimysnhjQWpeHml dmVydGljYWwtYWxp B076QOPmoGlhRrOdPjQ9 ViS8DyZ5N0SmEco9RTDj fDbfHV5paZYrQNzbVe4i cVyasGydRV0xGFWc gvkiKEGnvS6dABAtkSSm jCchOG7hWCKbtrxfg807 FbOgIGV2QWGdiRTvR1Ho tR0oXoOiUURtMJJw O6GbyGYmDFbqI097GJdy UaM6JKGdeoAfA2QrUQUt qFwbGuI4i5M9Fg58PWLJ ZWFyczwvdGQ+PHRk RGD0gMtxTNtfPETduM5o GICeG8l6PcRgBoH5HDdz J7CwVDRutcovCc16tZ2t FzUtMpA6ATkhQ0As qrP7RVIgvXIwWOxhQOP4 L49ww4D0OIZwCYBhQUE8 oGJ1zA9ueIocufyrxKLe dDsgdmVydGljYWwt JAvnQ201WYWqzTvvSx9I BCL6K0JwYwb9KVLdsWrh IK2yqWGzQMgxAl4qkUhx mZlmMA5cAAHqhxkt KHFkuP7lZEWokXVlpBml UL4dLPRwqwrnh788PdZy WZH0HPBpvQWtC9QdtN8a JiOsTFXkCSDjI6Cp uKMdBCpvV618PCxoAoM9 IGXsguCwQ0IlBDGzvOex ZnC1t3T6Ql8OBLevsYM+ KL13qu18Z4QzDuix Zcd4FMPlGAV8jPT4mU0o NMFoTWfao2F7cPE3P5Oj siHybb8ul4wfNQMiCHkz Y99rrTQqs8L5RDSz mSA2SMMetRmqSkEzcC83 Oyc+DVPlhWtmf0PpHruh t9szg2oaiFn0NbGrGKZc ffJnkPttTDQ2c1Ue Ex74D81kARwsREBcJHQi LBTpHKGnoPkrve1kuV2g Ii8+TTWchRH1nLD6dR7z JhCzEfO0NNjeN933 TgIntCIgRqrky3jwn1mg tJr5KcOaOMDezgKkrXkw BCM4e4RjMp81C5GepAxr l6FgYug8rg33sWIp m4A4uCI7C7GyHBYznwmi aMOtiTeySD8iOSLzovea HWDgxL8vFUQmA5a3EuSw IcS1EIuyJ3GvtpH4 EKNzyNMzWFKfxWVKfP2n guqxo3baepryWlNvULIj OIp3YLk2UGWlhBvhYwXh IUK8MgY4SSZ0rYIo qR1stUswusvodB3fVsq+ NLe1e7ienVEwDN0ajLU8 SE96ZT44uFGkp5X9cDT7 M7QwWQDhjuigfpaz cTM9DHFpSKJtbD56Pf6i uQxtCt0xLJEkBNN8RFWg gYCwU9YjdW4ePtGgTAPe BXQiM7AhzHGaROam W560BWkeKbL2JIStcpSu P8HdRWThdBtdMkQ0p3G0 Bs7RYA41TO08FJ76pUDx l4T7bSD4R4GfCIOn epjnmjnevTY5WHJuAGFn mV12Oi7pdHdkJt5aFVNz BON3SLOkqLArF5EfaE2s GuHoNXKpFNZuB8Xc pCCwZXuvK241LAlyDrH5 JAGudkRmV5UoTMVeuSjo RjJ8k0V5Yi6OGr25UU63 NL85dLZxi5A9eFQ6 F9ZeICPzvwkownqwxEY4 FDGkMXWvwW42Xi0drLvb Ml6qVNFcWMS9CINihFAf N3RgpG3qIpRzUUIm MPRjI0HcxIDfZMuzN229 VVzgPpL6QYKxgdUzM4Mp OGNjrEbyUvJ9f7J0Fz3A CBwhpbs2U0ZjQydm dHI+SS86AWRkFD13lSFx hUElf5uvjZo7HyNwLNTc ITK8pValABryd3NrJLUz X95iaMFgl9K4PAMx bGx (more content not included)... [facility] Coding Summaryon 10-30-2023 Coding Summary HTMLBase 64 AzubmfilISo9oOv+PGhl YWQ+UJ2LDGFpP42ymKGu uB7kP8GXDWhIGajfFNCC ORySEeFvhtOhIO9xpPVr ZXJu IC8+HG5vALUwHyxwnRVu e6C1mXK4L17siw2kKVxs kGV9MFTcCeOjmaxqt7gr zCm9DCwzMqyuXjKc WYZjzO08SHY8kU50Qz54 dMGlkRBvg1jujBn4JwHb GHInBSK7jWsnTNfvo6Fs GBIuO59kdTCob6F3 IGNvbGxhcHNlOyBlbXB0 cG3wVBgmyznzg5revyvt Pom3af19jRJtq0S3oLX6 B1JorpM7SSFteRAc LjrrpNRMiV9ddcnaw6ys ghnzEpImIESkADk4OUg5 OFZguDueTnNlGY64TUO2 MVWgljUwV3KnCAYk eMwrRlF0c0F3Rb1MD1QT YxqrN6WVUXTDUYwnbYA+ LX44xp32J3UuDoglYun2 ACIaKQL0oFX8jR8x PTIrGNaic0N0qWM4G8Cq vcUehk6cn8zjEELjQSon O81spVOtw0P0DFQfvTP5 RUTmzTyvAvNkrU23 Oyc+WBMrbXcsh7WkTxvn v4mos0pwrEc8ZctxDWTn ikYqnTlkJRW7j1YsWd7a SPNhdJO4eWU4fT5q HcQaGtU5VPapC632KiNp pBEbThlrL67gD8VwqWE+ LDHzKfo2CQThxZrsUO3h F0TcGEUombsbjFFb uPhtTM5bZGMlixerVYCc aZ0oTPRzX6l1EmUjBoW2 LSahL2BnJTOaqetxDh73 uR1eCnKoYqG9CIdp F1SiauR8HSTitDDtDVyx NWW8Y79qu5O5BQSlNWMp BON7lAB9oR6dtJsiggyu bGVmdDsgdmVydGlj HFbnCZqbR329FBHurStx PkNvZGluZyBEYXRlOiAg MDYvMjYvMjAyNDwvdGQ+ IXGaPLH2wRelRXVs wRQyVAnhWw1hhGawmYhf XY4aNAGajctuPHDcdQ0y NJDayBKeqBkuCM0xQTWf vwwng493FtYzWYD4 TNTshUNbV3IxtP0aKqBs AWSwOKCdE1UvtUBjHDhk U354HRigKxE3RGBxcxTh C1GtIXCqyZukUfG5 e0I0Cy2Fw6EndrisP8Gl iSIlJzRxOljqCWv0I1Pg PjwvdHI+EW29JPPtHL76 TPk8FUA8pLlsGQke KLZgI7FpbM9bTzQgBZRp ZGRkOyc+PHRhYmxlIHdp ZHRoPScxMDAlJyBzdHls GX4zFi3qKVRbWCKs wLmiqPFgEbKji7piBEVt CPvtBK7gaLnmE2SlbUW6 MIRfh9k8Fq90Q82tJ4Ma dXA+VCRnmQT9bDX2 tL3lAnYzNbZ3EFdyW595 BkIfzNTyNjioo7xli8zp wBz4JrL8CQLcnoRaxSfe ZCY5k8DeDr73A07u IHdpZHRoPSIxNSUiIHZh bYocks9enH8aGb8+PGNv rIX0vDT5gH1xXySeCwB6 LKvmA346DhYpmCUq Dfojt2gas4qimPj5HpGh XTXghhTltGyuOOY0t2Gw Ww13I4IrvCmth2YrKih3 vo58iXTuu3Z4rAG2 N5BbKZNohkxhuWBpyTmq ZU0qZQKnuxayVFRtcN5q EHHiS8z7PxWqGaJ2CJsl F5UqkdE5AFOffSNk ZNWhmDXDfN5vkqrhn2bg qwroZiSyHWLkFVd4LFj6 FEIisNnwDaCeFGE7IaQ0 HHJ6cTOuuP4lfJpl oyeqlI8tWuw+SYR4eLWl yBMYMU8vUzrvzAX+PHRk CLE3yTboMLivFMTxyW5n SUCdB9i2LnNyXjI6 OOywR4VpzhV6LQWrrSCe QOWjjOSVfL5rzezud0ej iryaWsPfFTRnEHj4AWy8 LWFsaWduOiBsZWZ0 CgE3BBM1fUAugP2egCmd jwcgzF2bHhm+QmlydGgg GSL8AZb7M1RxSpk0GYWt mNqoHB1mfZQeQTdn Jz5paWhudEcyHD2eUBCl zghwf281ZjJsl0tbLDEo mBZdRGvwIMW4Z42gc4B6 NDJmRVPnYGE5zDT7 dV0imMlqutmlwICpjFvt cqBkwDfrYDnwNFejG307 PSJxiCcsBgBrJPd1L7Ka Cmz6VIPqbTedZB5w dGMmFNtqOx3oaQibrInd NP6xCRDuwldnp392EsGl w4smQWUhiMBdCOlsPFJ0 J76ac1O1EPMwJOFt LAI8hKA6wG8vqBeineeq bGVmdDsgdmVydGljYWwt FYflA269YCNdgJhxKzSq vKb6W9TzHlz1VHAt pOcaWP3hoWOxLFqaEz5n yXhiqGfrNN6rOWZilhdw e362FkOpn3zeZIKirMZo HFkaLFB3X02wa9I3 XXWxOYOaKIE0qEP0dO0y bGlnbjogbGVmdDsgdmVy iEfhQIrrZGlpN562OQGm cDsnPlBhdGllbnQg WSvhDHl6T1YcZmupzGB+ ZU81LODuNM06zGUqqQFs p9lyuPl0MtUwDYWjLEV2 eGgaQAhom7KpIQUq G18emQBer0J6LWAxeYhe kIEqLeAtjOS4zQ1kAJeu kejqg3mljzkdMtggk2cc wc52zB03Y15oISij ZHRoPSIzMCUiIHZhbGln pr9efB9rIv8+PGNvbCB3 zCO0iX9jLRZaSnR2YRzh Z034WfRurXFcWrva q1kjw9irhHf7OyB2XIWf dyJllEwsIOJ0h9ZxAu38 A09wKUbcUBWyCSGwXGOp DVQepVtqxq2zeC0q Ii8+ZWDesID8bBO3eX7o RkBjLdG1HFhqL837VzUs bZAgYjjjH10tZ4NnbTF+ HNKlPjy8ZCBbrLeh JJ5shAHzZYniTl0wLGC5 LbKjDdYrBTjwN7HsQEBx gkertghtwDL9BBYyTICm eE93Ub0isWkjGRAz eTFUbG2fjdlla0fkcrck HbFyLQInPFh3OEh1YLGc oOycRjVeLCY8YkB8SBH4 bTEiyS2bnTcrhrdy uG1wQ7IwJJQnradpUc01 xM5yGySlOuJ4MYnvIqn+ C4EQCtvkTK4CJ6wIHLpu SzwvdGQ+PHRkIHN0 uUwkYYgtJNMpuP2gGQFx B6j0OaGuImZ8GHlkU4Th TKXbjeivBp88iP8pXzHj FzW6VQajS0ZqcrQ5 OJPyxEMiLEdtXHZ9I44y s9I3UDCoVQIiYRO2aBH0 nF1jhIwgigqmbDRizYbw dmVydGljYWwtYWxp S650CHZhgUkkAcXgWjU5 IfJ1GrX4A0JwMon5OPHg aIdeKS8siMUnILjoTq5y eAswhYmzGZ1iUPCy mxwzEVKyyT0xICGklUWq gZgzJR7nAKEbcrvgf428 MgPyBLP5AXIcmZFuZ5Dx vH5vCkSfGLElXAUb L1DwtVPfLXwuZ382YYbn EtK5VFMomjKrH4VfOADx hAjmBeO2f4K2Ok31BREQ ZWFyczwvdGQ+PHRk SCE4sXdqKKnvTLVekQ4b KHMcZ6h0TtMxCnQ2MMhg J1EcIIHxtzswWv67xG4h SrUfNsR5SLhcN3Iv wtW5JUJhdBZeUDufEBK1 L45fj3J9GWYmBTRlAXU3 lLU3xY2uyUbtihjzkKRu dDsgdmVydGljYWwt XOlmY680TIKdqGzaDk0B RHK6Y4RgMuw7GEXihMaa JG3bsZFoMFkaQq3zeIus oTsfGR8iHPHstavk DVAkrL7pATDzgSZtvHrb GS6rARRnjtkjf631XoCr XJA4GGZelUEeU5AuiY2q VfPwOMVaMDOqC5Jc iJTgHNrlP281FNmuQoR2 YNWddnLfJ7TkLSNajGau NpG3k4O0En9GTWapeXX+ PL26pu61L2TkHepk Lfo3GOBiNUP7wHO1pR9j DOHkVJcfv2E3gLK8L3Jf epZltb2jy0trRGXjCOnt X22qnIRef0X1DTKq tVT2ITXaaMsvMoExaP66 Oyc+CFZyfEydy3AxBdty w8fck2fixRz1BjSgMJFv zhYelXpbDGB6w9Zc Gv93T66tQDgvBSBeYQSc MMNsVSWfzEylhl7kdY8g Ii8+AZJdxMT7hUA9xX0r ZcNqVqK5GTozF352 YbPtiMNvZhupa2tas9sk fPs5LsSjNTBortVmdWib SPR0f9AfRs87P6BnjHjm k6QwEty7ov06tASs q5N6kTD5Z7StIFZmgxfv lXOafJooEF9qKHSsxsal VXQlaM0jZHWdJ4e0SmSt ReP8BXpsC9TsywX9 ONXdxHJjDSGyqHNMjX8m cvyii1hjotqkLdGyLRFq WJl7WCb0MZYmdZzpQrQt IAM2WeE0TWU9rVCc cE3qmErfxpgylA2zLaz+ RWf6d9vtoNRfLV3teCZ2 LB94QG50pQXzq4U5fWJ8 T8DbEAEnqnljhlln kWK5DSAkZEGcxK51Bl2c pZzaGd2nCQHgFEW7RUVk pGKkG2PqlV3mQpCuZFZy PAPsW6ZptJAnLJct G112USjuTeB1EISawfFt D9KdVGLyhQywKtZ8h0G6 Te0LCA07KR62PX40hULf v5P7tWY3P1VmZYWb vrnshxlcpRQ9MIHfMADg gG41Px5ycWsvDg1yQVNk GXX0ONDlyJRbX1DqgV8h OfPuGBJgMWEiP2Mi fRNuJLijJ556TQasTvL3 OYOymrZjR6KpMIRnyHux HwG2g3N9Wy7ESm12GN33 AR49cPIbs0A9qVF9 S0HwEULmslvbiijgxAE7 EVEzOVZxiI62Di1xbUsw Xc1oZUGmPQC2CABmzZIb M7PehT9tOtAbXSEb XZHfA8EauSWaCUdgX340 VQpiNdZ1VYEqmsCvL0Ky NHVjbOsyFmK3e2D5Ss4U XSgwaap8T4VdAoct dHI+RS51EZFeYR18bEAt zKZsr2rrrXx5CnNbJWOi ZEA1mSujOOybq4SbTRCy L25orNSwu3X0TPQb bGx (more content not included)... [facility] Coding Summary HTMLBase 64 JprlmmroHLw5sWe+PGhl YWQ+LV0BMSXuP21jyNPk iS2vP6GQOXbPTkzkISLY DOcBMbGahpJeGA2ryJDx ZXJu IC8+TM9jCXIbDxesvKUe a1Y7qBU9B74xlm5dQOie uYK9XZYhXsUjidrsf3wx sEu0HVtwAmeaAdTs DEGmxP26WVE8dL13It69 cKHpsJCfj6jdaNh4UiPs MEDhQLX7tRwxQOunn1Wu DCMsT91rtCGgx2H4 IGNvbGxhcHNlOyBlbXB0 zQ6qTTiadyejc0rsrsic Ivk8os35wUUwp1W6vSC3 V5XinzL3WOPpqQIa DrzwjQAOjY7tmizoh4zy gljxCuGmRLQrPKg4ZVu2 KDGktHejZhQxHG22NHR4 YOHtyqBlA5TlMPZo wCabJcW5j5G2Wz2ZQ8QO CwgeL3INQKRZZZtmwYE+ LP93op68L9GsCrmrCdp6 KVPtSJI2hEZ7rV6p RTXkEKiis1Q5sKQ0Y9Jv mvLnyk4gy2aeVKBmJWvh B99dkBTef1V6VYPcbDI8 BDJkjWzkWkEphD02 Oyc+AETqpBybc7GcHkyp t1hif7iagKq7PdyoUCQe fwKukXivWHQ2i1YhAl3q QPAumTL7tDU2uT8k WaOyHjJ1WRzmS070TjWx oEGlHorpO59bR8MdnDA+ FMRzRss2CZTxmVyhDZ4e W2CjJSNvvhvomAPn rQwsPD9kDHUgxnuqTQXd lM5bGXHmI3m5PcDiLgZ0 WPoxI8ZePJJieyruVx30 sU4bJdWgTtX3PEvf A3NuicX2WXAgjYJcAAeo VNW5T56ha7V9BLQqQPXw CGZ4nLL9lA1mgHfsnksx bGVmdDsgdmVydGlj IWdmKWasW675YVRdkYvp PkNvZGluZyBEYXRlOiAg MDYvMjYvMjAyNDwvdGQ+ SQRcKRX8cTusSIZn lEOcIHgwNv4exSgruEty SB7bCMFrwnoaSSOjoZ2l HMWyiHXqvKhgOI5hFMCk owsxn773BnLrGJV8 RJDgbSHtT4JnvX8wJzYu OKUsRGAfD4KkiMJmDVhx P662IRkeBjB9AENgmqTx A8VdCZKpiKfyDhO8 f2O4Zc1Iq8OdrvgqC0Xn rYOyJdKjEkmcOBf9N1Cw PjwvdHI+GK70YWVhQJ98 PFc2UXK8sQrcMZmv EOIrY0JuiG2xDpCxSYCx ZGRkOyc+PHRhYmxlIHdp ZHRoPScxMDAlJyBzdHls NB0xMa5bFCUiNSTf bQcboZShWtFpt6ktEKIa VUyoYI4qjOtqM1DtbNA7 ZLWyq6s3Yr19H58eF8Yr dXA+AUWwjGI0kSC7 uM3wFmTgXbK2YXruI031 YkYfdNKbBttwx5qhj3vm eTw1RvE1MIMrcqMkeZfv FPC9q3VbYf68S07c IHdpZHRoPSIxNSUiIHZh kLfetq4xfX3dVa0+PGNv sNQ9gCR9aY6cNlNaXfV5 UFfeS711UhSmlLAb Mmadr8swd1jfmKo1BoDu RANuayVqhIysXBV6x1Jh Ed61I3CgnBuft7SsLce5 sn69mYUkw7N8zUH3 F7LxVCLzgayfjDLqoLrm PB6pAHXiehleINBueW2o YIQuH0u4OuKsQiZ9SXfx G7WrtkN9VAXzqHEp NQVheYAJkU6eezyhm7lt kdfaSjGkCZGzJOw6WZx8 JGLgxUdiBdCcPYF3GiY5 MZY0rJHrbK4bfCpg llgesI9rBgs+BRZ0vTCe qBDBJQ1jKiqowRN+PHRk FRN0xPqtECfmOODoiK4t TWSjG2n7IiSwKgZ5 RGlaC4RjqhN6IABadNIl OFEyzRNDvC1ugtuqj0yv vbqqQdXsMBLnGNl2UOb6 LWFsaWduOiBsZWZ0 RcJ1CTD1dSKafQ7rpSgb rxqxsX7gRxp+QmlydGgg ZOE8DOb6M3OmPwi7WJMb gNudOS4pxAThLShr Kp5tfIhdxHfsVF4lBRKc vshwy147KjDif8gvQAHd sICnEJszLFD6U17ex3J7 VAIzICStKPG3kIP2 mK3jhAwylpehsSOvzGxl tdIscCnoLItkDLecK927 LOXkuYidLjCgVVp8W0Ph Ptv9VFEiwQftCF1a oYIvYIteOt1hdBsybJpf AL5nRAAyaxvie007JiQn r1lrSBHgdCHxYUfsLAS0 W30nm7N4WYYhHAQi WZN9jNF8xD5mwAsoeixo bGVmdDsgdmVydGljYWwt UUjpJ288JLRtfIseQiZo fDm6J7WzJtx1MEJp uPppJX8qeANzKHiyIc4y kAieaQqoSV7eGWDhnwrk s387NfPyu1ozSENrjMIn ISrfCAN4A76qd2N7 KAUhARFzOTZ1qKI4oL9i bGlnbjogbGVmdDsgdmVy tMzkIUxeVQeiR861LVLd cDsnPlBhdGllbnQg QEglBTn5M7EgGtouwLE+ BA28XFEvEW27cUFoaNJs b9oelOz0EjUyQCUxTNY0 mEqnJSgnc9MuXJTn R84mqJCdd2F6JGUawLaz aVImWlCmhHP1eB5mNZpt aywvp4odqywkGvbmo5pu wb68kN75O86cNUku ZHRoPSIzMCUiIHZhbGln le2xfT2vZb9+PGNvbCB3 uFG7eS8gKIOrYeQ9WSjj W254ZmDhuLKpBjig x6ggg5yyjMl9AkH4TTDr knSxuNpeKBL0c8YpHl86 J86gDLivMZMxMAZbTGFn VLSrhNxvgr1stJ1j Ii8+CFFamQB8pIH5xK0o ZbGfTqS6MAzxA497XvPh vRLzVhdwJ12vX5YokOH+ EOInZkt0GLLhvCzl ZZ4dvUXdIPgySs0sLKS0 NxLxMtLfGIqjE2OuNPZn fhkbvnnvsBI0ZUXkTQYh zD74Tx8jyUgqZJIy wOVCuO1unvnma4qhigyf JwMdUZSbQRp1VNm0JFRe uKpzMrKoCRQ8GlJ9FYU1 yEDzlD5dcAhyeayb gS8xK7GgLWTqymimVi18 oA2lRxJaJjP3WExoFrh+ F6MNWsjeIV0LR2eCHQpo SzwvdGQ+PHRkIHN0 wRchRJhcZHVubM2uXDKn J1f0QcWeFuB3ZKbqF8Wr MBJxjhxsEo84hZ2mZuLi MbH1NQzwA1TlfbJ3 ZOHgaLMyKVesIVK4L36v e9I6IVLuPAEgDQY8bTY3 nZ5biCfcpvlccIPjtOvf dmVydGljYWwtYWxp D435QESmxXhzBnWiOlJ3 VwV1DnJ3V6AiVdr7PENx dPtlJV4cuNCxXVpvYw4v fJikdKwzMV2mQXHh tqnpPKNjkA8pJQJmjUDe aZqaWU5cDEGlgotcp286 PnAwWHR8VWCksIDeA1Zy mL3gJvKeTXVeYWBk M6UklWHaNHoyZ157ZZyn PdB8SMLntjQcL5GwBJCi tHhpZlG0w2V5Qp98BITS ZWFyczwvdGQ+PHRk DUA2uIiqYBlgZNEgqX0k YYJpL4u0HcUoWlQ1IQgs T2FnWPAbquziKg83gJ5v ZdZgYxI9HPtxO8Bq neN6ALTuhSIdBWzhUMS4 V48oi1Q7PQBjCKBiZHQ6 bPA7rJ9dnAlwvsxdlLTx dDsgdmVydGljYWwt JOieY986QAHgdPwuAl5L DFG1H9XlUkm6FIXnnCkk UT3dnJSpJVwbWl6dyEnu vOzyLJ1aMHWzujrg FUYioO6tZQJsbTQtnVmv KX8bCTEgpjbqe710SqRy MES5BTLalVEyY5SqbA0h LiWbXVOcSXYbY1Iw kMWdRFguK291QLgzScM7 YFHznvJyX0EiEDHogInv TaF8o3I4Lg6OAUgpjVI+ UX75rt14R0TmWpyf Qyb6EXZlJEW6rGH2hL4b LILwEZwam8K3mRH5I9Hn dnRlzm4xd0wtTFEvKEia Y98qzSLep2M5CVCs nFU8AKAydVjtQnYjuS67 Oyc+LBNeaPdiu7DqYzas h3heb9fgtIr6DpRoDBSf ixAixEtxXRH7b2Ty Lq99X87uAKwgWJEtYIMa BJBwJSAqnFmhow2ssY0y Ii8+EAGdkZA7cVC5vS3w UjJlLcG8XTqyJ625 QyAytUSmJacvc2jep5hr mHp1KqPrTUIwnlAbnWgs HCE0o3TuXt38T9CdqJzg j6EtRku7me68xPNs k8M3hKC3N1OzPBKdgwqu cCHfkXfhGR6uCWRgkoed GULxeV6bMOKeG6p6DtSv IqE8DBxaV0YaqbM6 AJEvkAYwDNKnyQFIyA5h rfcso1ggoyzeFxFiRAQp RSd5HUe2RBTfxVezAeJt FZJ5MtR0WPD4rTEq fY9seOubsrbtaP0eZps+ SUp4c3fgqEWxYA5yhUT6 PO96WH43fNCju6Q5dWE5 Y8AcZTSjjrunvpjw gKV0YNIeEAEhiM42Sc2p qImbMz1bLWIzAZW2JFCl rNLiU7BfdX5zDePzCNDf NSUhX4RkiKMwBRze I120PFpiYxQ1XBCudcJm G5WwQUJatEdzYgV9b7N2 Po6UUL44WQ41TS35fTHi p0L6cJK8L0JhNYNu gdwgonrbuVV2MMUeZBYq oD84Nz5leYurGm7mEAHg PSU1QJBiaZNeU7EesI0n ZeTuHJArGUJwW6Lm pTBjEWfvO242KKppCwK8 WHDpxjPjA3HqOHYqkXes UgI4v8A1Sj2TEd25SG42 IM73jULrk4T9fGG1 P3SmVPMvumhfkppzaNE0 DSDqYFCqgZ58Xu5ysCiw Jm5tBRDdEDZ9PGMfrTXe H6ZgnF5sWrUoJWGi RAWlN1QyhZSrEByiW668 GIypSyO8YWSdgqAbG8Ld HSJboVrjCdS7a9S8Yu8K BBrmumt6L3PbOqxd dHI+CG92RGVnYN87iSOk yICkf8eaqIb3ZiKlWAJe ZUR1iFjrYVqey1PtSGXq T69ilWBkn6J2RNLh bGx (more content not included)... [facility] Wound Care Noteon 10-28-2023 Wound Care Note [id number] [id number] #[email or web address] [facility] Wound Care Noteon 10-21-2023 Wound Care Note [id number] #[email or web address] [facility] Coding Summaryon 10-16-2023 Coding Summary HTMLBase 64 VcwkrrsrRCf4fLa+PGhl YWQ+AC8ACIMtR10rlTDa tI4lW6AEZMrNWreaDPTW TYyCXyMzuoSgEF0phTJr ZXJu IC8+VM5zLULuZbmhrBEm o4W2aCA0Y62czl2fSQqn nPJ4EYJvOrIwppdkz7tb eGg6MHxiVdjoKaZg ROGobN69VXP5fI76Jq87 oBJggQEsp1aldNo0NpMl WQLnATS4jExjKBfuy4Ko OUDoL95zyWEev0U8 IGNvbGxhcHNlOyBlbXB0 cI4aCKpsqkfae4sxezkw Lal3yt09aTOsb6G0mYP1 R8VxcwL8DWTktBGb LnptuLHVwN5mukhvv3rt wwzlXnCgYGCcPAp0LGc2 RBBlbCnfKhZpYH39LCX5 NETwteNlG1FhGJLk hGmmSyQ2l8I9Kj1QO1JM QziiG0EWVTKGBGzcvUN+ FU02hu53B2YtGqgoHio5 BPReCGC6zJT5aN0j BNMxVZqvx4N1kDQ2H8Ki siNjtk6hr0tcPDNlQVrj Z35yoYMid3Y1QAKhdPM6 XHJzoXijIsImlF94 Oyc+UKXdhPycn1QsVhww p7qdd1yegZs8RjztGMRp fuXdnBqeWXK3y8EgUj8b YNBgsUT2rMH8oR6t BtLyKkL8GMwvH910FhXf gUJdRgrrL99hK6HvaPB+ FFDfZby7BGDceMttVJ5f F1HnPBQvediqbZRn mTbqLC8lUHVdbcugOOQx dP2iCEQwQ6y8QiGpEaT2 WNluK3PxPGOabcpuOz80 vG8sTrSsIsC7SQsi B0BvzcJ4GXFuxSPvBEur PDK6E61im1Q5JTOmALJy KTN1rDL5lO7meQfydxfv bGVmdDsgdmVydGlj YDywUEjcF738QZKcfKxt PkNvZGluZyBEYXRlOiAg MDYvMTIvMjAyNDwvdGQ+ MTUmQPM5mFcgTMHx cXOgBPctKw0btXzyvNai ZH6hDROydubsEAIdiR1u DNRjhJWouFykZL6sNLVi oobkw105RbXlRXE9 NBYmkVUsU2BwgF2uPxUz DWXtFDZkU6KkdFAyFPyo I351AWisAiE8EGPcxnHf N4RoBBPypOmqByL4 f9G3Yg1Vf4PjpezmD4Em xLHdXsKaRpwwKQi1K8Rv PjwvdHI+LV86XBVrUR54 XPt3AVN5nBroYTfz ALMhR6TduD5uEzZfUUSr ZGRkOyc+PHRhYmxlIHdp ZHRoPScxMDAlJyBzdHls QL8gZv5vEJAfRPZn hYrahTRhInFuj6amVUIp SGmeUC6pkGmoY6OvaHB1 HUVig0c9Xv03T78iN1Gm dXA+SQXcyQO9hPG8 pR3eVbZsAjM7RBhbB418 NmHlvOJaLncln1fui0gv rYq0MtC5FVGalsHdpDlb SWB2m1OiMs03A14o IHdpZHRoPSIxNSUiIHZh zAtowl6jsM5tKm6+PGNv lQE6nYM1uQ1nQqFfTxM4 FZuqR718QpTbrKIu Xoqyc2rtc3vxfQt5VwOc RNPiznQwpOjpXTI0v5Pu Ve82J3GsvWmlk7UdIpe1 wm20mVGif5Q7pPN7 M8LhQQFmsrttoKQuwOfe SO2sOIIljayuMEThjT4g TIZnD9k2XeInJhR7EQga N4DxbnY8GFPzxDDp OQBvnWLVnS9lwstxq2eq foftDhVrNKFiDYa4BAd5 IUQtxIpoGvNySDL1DgK9 AMM1sBAncI2gvRfq eofvhI9iYkx+MZT3rJTr gKUNFA0oSpcccRR+PHRk YEC8zYxlFHeqOECvbI6q NHWhZ2o7FcDxSpI5 GEkeF0YttvQ6DJFoiVBs SULypNGPtA9ryzrkg3ho xwsvArUuPQUhUHm1IBo4 LWFsaWduOiBsZWZ0 SpW2LIQ6kOApjC5rkPvt khsoqS7nCti+QmlydGgg TMF1YTg6L8TqQie7WQOj lMgwPL4afPAvHXnj Cv5rtXzqjKipJM1tSUSn mawhk709UlTlu8dcOQAm yFEhUGhrQNS7T52zd4R5 EBEoEIMrRZP6uTO4 tU7dlPvzlwarnWBwdHql ppYjxFbpJEjrQZjeV298 GNXraDcjDgBvJGt4X3Ja Rpu1FXWfzCfnHD7d lAReVJguWw4joYcrnCoj EV3kTWIxrffzp893UfSy j9xqDGVwkGTiNUqeZNO2 L44wj2N2AANaWCIi SDZ3bJN4sU3xiHufpmqi bGVmdDsgdmVydGljYWwt COcnQ454ZRRgmPotYnNw iIl4W4BdGey4TFLb fGhkZN7qjCUnDMenWw6k rLyulDwrBU7tFVSohypc x539EaYwm5beOHItdSAs MGrpHRD7A01mt3J5 AVOcUVHzMKT9bIG8hJ4z bGlnbjogbGVmdDsgdmVy kAimFXggMGzlK653UDLx cDsnPlBhdGllbnQg JZvoPKa8H5FvWkxajNT+ PI02PKJxTV99vKCmwIRg z3wufLz7NmTzLFCpQUW6 rNzvUVyzw2AsLKCn U67gsITyq4M5AFGbcSrd bCQgPhDfjTB7eR5yVHcs xbrxe7qmmbefLizkw7if ug67jV59R31vXXcs ZHRoPSIzMCUiIHZhbGln is7eqS8lUa4+PGNvbCB3 yFQ0eU3sNTBvGlD7NFew D025PsWdrHNcPzau v7myv2bcuZv8MhT1PXBr saHejPysKMU4w8RiBd62 A34wLPucLYVxCHPtNZPo JZEreScpmd6asC7s Ii8+WNPjuHU7kYJ8kB3s TwFsDyK1OJmfJ741HsRd wYQgDjbzI95vD7SeqHU+ LOLqNei6NHZpgLhc HU2iyLLxLBoiMa7dWFP5 KyVhOwMrDQxcP2VrKBQk apkwficxhOR1XDZdIOHh tF32Aq3dbUsiSTHc eKPIlQ8sshofv0okfxlt AsKhLQKuZLx8TBt3YWDw iFmlYnZfQTG9GcQ5OCU8 qDLelN7ysThiceux vI3oV8CuWOHnttvoAe44 hK1zPqQkUdW0ZSkmEgc+ T1JVYvhgQP4UX8lAVCvo SzwvdGQ+PHRkIHN0 tAtxGNyxYTVdfY1uOMGc A5a6DkYvCqH6XGtdD7Fk JXCgmdxvXh88jY4iArSv QoI0XVakZ2CfnkN0 RQJfzGNvDElqTTN8V20q k7C5NPPkZQUbTMB5kQF8 bX7mbIdkkzxflFCslWsv dmVydGljYWwtYWxp X601XVXaoBsuGlPkXpQ5 LwH7LfV4T7LcAdm2WEXe wMptWG9xiYQfGAvoNa8r yZzkmTxrPV3dPFYt zcqjPOHycB5gIOZrfWXs sAcxKX1zHLAceafyr522 CnPeAEC5UJOayLXjY7Li zW7eAvAjBGHsWOVf P1GykVKbBTilJ385WRsx WaH5NESapqCjL7DmFCHv sUwjIdF8n9B6Jw84GUHP ZWFyczwvdGQ+PHRk LFN3mEfnEOglMNGjrL9u HRNaG4e1IbSjCuS9KVae I7TvILOblavqTz98lI6l KjTuAsF5WXjwB3Qx mmL1NAMojWVhRMldQHH9 X67wr4U7BMWpKMUaINX4 rYU3yH8eqOgskcrshNIp dDsgdmVydGljYWwt EFerZ020BZPmmEimVk8A TPB8B7QrZtm4HWUuoHtx PQ0afKJsSKvcNv8keTmm sJnrAG7hHDTpavcv GDMneQ8jDCYlqNKioJru AJ4jNPYramypf703AiIg ZCY7TOEldCAaU0NqyK1f KqSdLJHtSWYuU6Ym pOBsKVvjB426AFofUgI5 DJOjhbVpQ2CrGMHuqLwy BdT8a2W6Vu5NRYbadZD+ OU48wc51D4FdUdrl Vsu0NUSbJCR1aKX5tP8s JGSxZDmxr1J3vLW6P4Hl rtOfos3pb1irUCAmLFdh H50avLTvd5G4XPNh rVY9KQLznHsbWyAmoC83 Oyc+UXGewPgjw4AvQsgj m7kps1fsdAt2WeTbRBIy hbPxxDviEHM8z6Xf Eo94U87uCMofOAQlDUPu OXRcPVYkwGmjam1qbZ5j Ii8+UTEayED5nTE2lO0i EbQrXlG7UYspP699 EvAkrMAkLnlfv9wuy3sj tAw7YiZlLJSilwHtdStg GEK3p7XfOf49P4IlpNed q7SpRhn5bl20hTVx v2Q4iIJ1M9JiUMMqlwgm gWJfiJbeJZ0fPYGxmvzi FWXiiW9lKFDxU1w3CiKj AxF1JMuuN9BegnC0 CFMnlKYvHZGxoOUPxC2q whojd3fimbfzRzFdGJTy QBn2QHu8ZEZqsAdmPjSk NJT7ErR0VQK9aCCt wM8buMzrgqvrgJ4mUlf+ HRy3o8ehdEToOS6ivRE1 AQ91WR28rRIgf8V3eWJ9 G7DpCCXzxotjnkrz yYI4UYPwMHJugN59Lp6t fVfpDp2zYOKgNCC7YUJh pAFaK8RsdB2pSsTqVDGv KMWbK8UvgBSoVKun B235DWloAtO9XMIcjlEh H8XoCJLeyTeuYrG9r6M1 Yo1THB25HE43IG96vDHx l2I7gOO5C2QjFITu cgtuhrmbdTQ1UYGwYXVk rR64Vt7nfZxhJt8rYKXz JJV4PCHbeDSmD8QivT9e VpDlRJIzLMWaR3Ou aRMvZUmeV338ECkhDoY8 PRHlswMeL4ImVMLmvFcp TsQ9r7L5Lu4SSp55CN14 XE07cKXam1O5fMT6 I9XvNAFwvpvlzuwpaGA4 LMXnZDEbrY28By6ztMwy Rg1pMJGrRGW1LGFozCJk W6SljN5dXvNmTUFf TFMbW1NadHRfNWzyZ825 FDsjSqX3OYGkjuStO4Tk CMArrYpvRkI6m6Z0Ub0T FVzhqvd9W1KnQmck dHI+ZT60HRKdVP82yZUa uXQgd1ghtAt1LeHmHBUm NUT3dGteNIqwc4DhITSa M53dgIMhw1M3HTCy bGx (more content not included)... [facility] Coding Summary HTMLBase 64 RanxgoarERp7vWf+PGhl YWQ+ZL3ZRXGaG61auKAy sM6dO1JVCJtDKkabFMSB PDcRXoZsziElGT7ciCBb ZXJu IC8+KD9aUUWlOguliJCk q3W5dDQ4S06mja2zGTtf fHM8EFIrTbEyhnmqr0bq yCe2AIipXibdTgGe DIYulD31DBA6dI93Vg76 oLXwlGWaz0gehQe2MgYj YPMvWUG0uUgaRDqor2Xu NJDhL18yxNIbv5S8 IGNvbGxhcHNlOyBlbXB0 fV4xOIlejtona7lgrpef Qdr1jn22fZCtx5D8hEG7 D3ZtxaR6CTDkcJAu QntgcZKUoX3phyjmb2oj czuoVyVtCOFpQUu4KJb7 NJYwyAhjRsOiIE50HFP1 WYBcfiWtR6FiGMBd hUgxQoI8v1R8Mn9CU9MO VzseV7RWBSFNCQexuNN+ LS54wz21P1UdAzqgCoy9 LMHyEWG2dKG6mE1n FWLxDUxex1E7bTK3L0Gl tfVsiw8fx4djICBiMZtv X41ucRBsv0X8FMMiaWU4 SVPmmBwaSnJpeM26 Oyc+BYPjzGfeg4ZbXqim d6fjq5ytcPg8VjhbXGKe mhCykAouZHX8e6DuOi0e UIPjoRB9dQS8tI6y MdAvCqT7YXtoJ603ZeEm gAVkYaxiV71mR6JfbXW+ JGLiCxv6PEOtdMbkLL9t B7JnDYQtfnducHWn sLeqEG6xYPTmscpeTATt oB9tBJZhH8g5MfPzXbN4 TMckD6MwKXGslgotTh32 pR3hHqZlRrQ7ZBrw A0WezzQ0KMKubAWbSLym CBF4D93vj1Y3ADOnGNMp MHP5vIA6zL5vpZbasqvg bGVmdDsgdmVydGlj CVvlNTusF970SGCkrJyu PkNvZGluZyBEYXRlOiAg MDYvMTIvMjAyNDwvdGQ+ EMYwOFP9yCdfZQPt gVMgSOtvDw7hoWongEvz MU6hBUFzymjeIHTwlL8j MSMjaWDioOgkKG4dKIJh iqnra784WsQrPOI4 GTMjnKEiI6IhaU7jNiZy VVBtGHFlY2DpkPDfPIyy U073QVmbFmS3KBZltoHk E1AoHYAvoSriFmB9 i6Z4Wc0Jc6WxddlsY7Ib qWTmLdWvCadsYCf5R7Nj PjwvdHI+EZ74SSQgIV82 AKf1XMK7oCqcSTiz XERpT4HteO0qKeQjTZMg ZGRkOyc+PHRhYmxlIHdp ZHRoPScxMDAlJyBzdHls UL7bCk1sMCAvCVZy cRwffOScZaZlo6qzUPHv VAisRE2zrGbxG8UovDL4 HMZse2a7Pk06M01qT2Oq dXA+TQLmxJL8kOG4 oI0gBxYtKpA8ZDrxT475 UgSrpKQpYhxuv4syi3fm uFg3TiU1MMZfwgZdzApc ZLA8d0IzFz36R07i IHdpZHRoPSIxNSUiIHZh mPoffu1feQ6vPz0+PGNv iOU7sCE6oG7cIfMtXsB5 DZpbL424NkJbuWUe Dkyjb5ind5aiuEf7SnQu DITtmiCbmEqiKTB5d9Tf Xa73M9AmzIvsi7SjUyz3 dh20vNNve0F6tJN9 B2AzGKUnlaxybIMnuUgy XA0hZDLfzwrtTVPcrD5v KGWrJ2p6UkOtPbI1ZSmo H4OotaP3HWVmtEQe BGJdlUCQpD4fzesjp3da szdmArQcMQEgCUp9BSp9 MPPeuWkvYhImUMD7AnQ7 QEG6nOSsiP6urIol kpnngI3cBul+ETC3aTEz jZWYCF8hKtxykGQ+PHRk GVW6sRipZFoeJJWffD1p PKKnB0w4WhNiWqZ6 CYpmS6XpkdL6QYEfrOYy AXHkvKLQoW8wgqbzr2tj xwqnQiKeXONkGRd7BXw7 LWFsaWduOiBsZWZ0 RuO0QHQ1kWAnvR6bnAan vhwrtK6iMcu+QmlydGgg IMQ2NBu7Q5RmZte4ZHCp bDotCD7rgEDcCVgx Lc7kqIvfwByrRJ5jHVAg dlifh859ZfDzn3ksIENa yKRzWMusFMS0A43vh6X1 ZQTfDJTwWAR7bFZ8 kW6rzVhrfsbdjPJwxAzo roUngPviIAkgHXqiR693 AZMlxFvxWcGoXCz5Q2Hj Quq6PXCwmBtrOB6z dXYeYVgiSv5idRqlkFdg JR2oEHMlweyzh965LxOc e7rqPUCfiJZoQOhlFUN6 H89bu1E6HUTuTTKe ABK2gRF4uT2rkBllkari bGVmdDsgdmVydGljYWwt KGghK905NGYcaXxxTtRi jZa9K0QcFfp3RDVx pCocYD9xvQYqUMedYs1c aJjxwUwyZF1wBKWjzwdx p276YfNbx3ruBSHhjIZe FElmFLE5X03wa7L1 EUMbQEKkHYL1mEM7zM8f bGlnbjogbGVmdDsgdmVy kDkzUHnvWGxwS453WUEd cDsnPlBhdGllbnQg GKsfSHd0O1QdJegltOZ+ NN93DIMhDH41qVGioPUr q0pjdYc6SgPkCGVvLFC2 zJewSFndv6PwGFQq U88mjLDul4P7WKPdzXva uMBsHyIrlRP8mY5hOKov ghwpq6vylgjbGqvnx9tl yh15lU40B80iYCvd ZHRoPSIzMCUiIHZhbGln of8dkF3zSb2+PGNvbCB3 jHE9cR5kLEQcXaP3PAis A664WtTlgLGdFqcm y4enl8dppLf9KoY2LYWv lpByhAveDUJ2o6SnPp35 T40oQXuyCRCwCCZiGCVm PBWorWrizm9ipQ0y Ii8+EOBrgBT5lZT1uX1m PaHyBnF7OExyW188YnGf oMKsNbxtS86cO9LlrDO+ NOPyBrj0WOKneInq PI3amOZmFBphCc8eMCE6 FtLoEsEmOYhoH7RjYPRs ceuyrkfwlAB9RHNjSPWm rE78Ul4hcPsfIQFo uMOVwW6vrbnxe6wktctz DpIyCEJtJAs1UJa2FSNw kXtcQqOiXTE0RdM1MSK3 jZRupV1buUdidvjg dP5pM4ElFSSfsnnmRr81 tP2dCrUvCmA7NWpkWse+ X8YWYnrdIP7QF9gSWVpx SzwvdGQ+PHRkIHN0 fXhjBKgdEPUwqW6jHRTn D1f4RrApWyW0KZvgX7Oc BOAveuxyBi08cM7bItQa MnZ8CIogI3QayoK3 QODrqVWiAPvmIWF4M95g u4Y5WKZmIJCtDQF1dYT6 yR0opRtvospfpRPmyWgp dmVydGljYWwtYWxp B411NFSnxUjyDjFsNoA7 YlY1GaO4G7ZbHec1XJFr nSxdCE5lxZTnPLpmXj4s sRuzzVhlPN5kZRAa vajfTAJntD1eVENmpMPi tRzcTH0uQSTqrnayp204 EvTgCHB1UEAjiUKnO4Ou uS2cXsUqTYHfSLIf S2OgkRFsPQgiE031YGzp UlI7KGQfdsZuI5UyYDXo nIjiYbL9c2F6Ma16OUVS ZWFyczwvdGQ+PHRk MWE0wIhjTCusKWJybN3x GGIfM8g7PuAbYaU8NNvy P3XzSCYdydtpUm95kI8g WdFiJwQ8LMqmK4Ry neZ0LGNjdHVhTSseXFF0 V79yf6V8BHMvNROvNGU8 sLB3hM1ggGplqjgqqNQu dDsgdmVydGljYWwt XRcpI683BHHeaVmxIg4O SDF9X0XcGbu5IMPkdIga JP3wrTNyHMrwNu0dpJpu fGtfBV7oXUPcdgeh KYHcvB4aBZOpqLJdcAxh SS4qBPBblgjjl034KeRg PIZ9NEOakVQvX2TxyC5m MsZmTXHePXGuB7Pk oEEpEIowW482OOomKvL2 TVDtnoItW5XjPIZmzXtj UgE9e7Z5Zp7GCPazkMQ+ NS62fv67L1JkMrwi Rtv3GPBwVBQ6eEB1jC6i FKPwFZiop2H8oAS1G7Nt aqRyhp4hz8olBJStLJss V89esMPwf7W9FWFh kKZ4RLIpdSxwRsDabY70 Oyc+MFPpaZzbq7BnOvra q4bau5svhLp0DlYpKNNi jyOlfYghBTU3c7Pl Fo17N52tFGpaHANxHDAp EVDbCATgrUdigw0usV3g Ii8+XFAocIQ4hVU4eM2q CfDgIyZ6NLhdP570 NjFclLZlFusuh2xsw7lj wIt3IiSgTKXtvtUtiFgq WCO9z0HsXz30Q9ZlzCwy m9KsMmw4ew93kYCn c9S3kHW8Q4QuUWOfccqi rREtqQffWR2wYIDwyhhl PCAkiQ8rCZGgO6d4FzCq CtI1YJtkD2TgnuX0 JBVbnEPtINGpjJTQwW4m nwruv1jxzwmdNvKmDNLj ZSh3QDr6GTOopGdeMlUh FPX1CuT4VSV9iEXo pO1pwWjutadrzU2mGox+ TNw1a7mjkMBxEL4xdWK9 FP89GB64bJOck5R7iKR3 I7PpWSXnyblgcmtu dSH2ELGkRHBtsC32Ej7i aIgwGq3qBWQtTOW5OHKx fJWqP7DwqT9rHtSwFWVk ZWCmD7SjnECfLVfy R703JKpsPkV3BMVulzIp G9JaCMDpwCpdNxZ3g1Y0 Xx9QUO45TF09WA57oHYr m8C7zFG8G1MuNKNe viuypxvlmHN9WYDbHLCs aE37Bq2zsDpiSl2iITBg MBG5OLBorSNaV8PobG2t BbAiNOCaULZdT9Fv iVApKYsmT699EMyhWxP1 WCHodcVuM3XuMSSkaLas GkB2v1H6Ly8YEq08OV77 GJ14wGVri4F1xPL5 T9IcVSKhfhzfhlaenRT5 VPByEDKvqA67Gg9brYgk Xf0oYOMoHFE4OALsvVDq X7BjfB9rNkUwJQUp PFNuO0VwdUFgIHjrA851 BEqmDtI9ZZNovwXhN3Yg ISUfjShwLnX6b7R4Jv0K IOptsjg0J2MnNvbl dHI+JT23IODeZT23kNSu cBXsl1gmzPa0CeAtKLJi UYK8hYrpRJpzn5XeSUDe H54zkGEkb1Z2PZGy bGx (more content not included)... [facility] Wound Care Noteon 10-14-2023 Wound Care Note [phone] [id number] #[email or web address] [facility] Coding Summaryon 10-09-2023 Coding Summary HTMLBase 64 AobfoclgMWm1jAh+PGhl YWQ+YK2NBZEgI94xxQLz bU1oB8YEWAkHXqnoJNPK WCbUEdMzgxBuEP0hhPYa ZXJu IC8+TY9iIGVqQpcknQJy l3S2vDQ9G13qmw1lRKid iUX1YHSkEoAwjhpiz7ba mAv7IIjmZnorKtUt QOKltX84CLL7qN49Eb64 uUTpnKZyl9whjLu6SaAj UFJiMSL9gFgqFXvsr7Ek YSXqE17vlXPzt6R4 IGNvbGxhcHNlOyBlbXB0 pP8cPFjeazjqo0ojqjqq Vjl6ax36cYWfm1A5iGY4 A2PhttB0VPWgxFYr VdrbxPQZjQ6wsxaev3xl lrilOiSyCEQdYWv9JXm7 MQTmcHptLyGfPH59QSS4 GZJxutWoW0BaULOt uMqzHjB8o2T8Ib3SF3JA QwqzP3FXBSUWXGuixRM+ KS40xl72Z8ThFmmxLnk3 ESMcHTU7qWU3pR1j WJHoAVikz8J5wQF0E2Nh gnHwtc9hr6ogRBRrXYzh T53smJLxi7X3ZJSyxNW7 OEDakYekOjKicO59 Oyc+NKLghLvzq8TgGzlh o6pus5bebYc5GklkYUCz zgKhjGajJPB4m6BbFu9n PQTupEU1pVB6bH0k UtUqKpR2EVhaL563LyHr rXBdZtwbH56lM4NrcIT+ WFShBtv2GRXdaTxjSG6t Z0WzIFPevrxwqXQi rXgrGM7wBRVcatcaKFFr tV2nUUDvD9p6BrVeViV0 PMrpL9RuFUOmhjjaHl31 vF8vVaZkYwT4NOoa E7GjdmV5RPZkxONnLJch TFP3O60jh0B8LAPeJXBu MXL6cVY5rJ3yeLmbcxxw bGVmdDsgdmVydGlj WPlsYWgwL897KQNxyJmo PkNvZGluZyBEYXRlOiAg MDYvMDUvMjAyNDwvdGQ+ ZLYjWSX1fUnoZMAd cBWiDRzpCy8vtFgjtSne UV8tJUDrstthTYOdpU7d JTMuyUNbkZyeYT4sZJYa ytveg701UkPoFNB5 OINrkQTlN9WvtI2tFmJe XYXiOPReT4BnnDWcNNmd D393TLacCwE5QELhbyGh P8YpRIWdqIbuPlU0 a3B9Bc1Cv3RdqvzaU2Zl zEYiEqLwPadhWYk6U2Ti PjwvdHI+TV81UFFkEE04 NFi6SKO3dFntWLkl YYJcA9ChjV0kHpDySZNb ZGRkOyc+PHRhYmxlIHdp ZHRoPScxMDAlJyBzdHls ZW6xCn8mOYUgGCRo eHdsjXOwPgLlw0eiADFd YSdhST9vbAfrP2BdwMV9 BGGas1v9Jj11B56zP5Zn dXA+JNVkfUB3vJJ9 nA1dTaTsPlJ0MEcqF523 CwZwbSWhBvsja2inx3te wJv0NcM6YFAlzbBguCvh QCF5n5ZzMw90K17l IHdpZHRoPSIxNSUiIHZh aXsjbd0evH5yXk1+PGNv tTO8uXO5wO7aSxBeKhP4 IJlpK747OgVamWXs Hffhs4ycc1biyGe2BiHo GLBxpeLwgOejNTZ3m5He Km13I9WwzBlbe7ZvMsr3 kk25uILtr8A0mEA2 K9AsVVXlrhkcsZZwrEtw GI3uVYXdbqjiPFTdeI7a IWObY4w6YgYeVaX6IFvo S5HkkrG9VWWzaATd INRluBYEyK5aubmnh8md paykLbVmYAAhGLc3HUz0 QWWttYnrLbXuDFQ5QaB3 JIQ2fTKrdR7ymFxr ctrxnP3jDte+BGO7tSKz vBZCBO7fCpdehCA+PHRk QCE3qTnkERzrQNHtzY8c YGRxH2e0DlDpXlS1 NKnaD1TehnP3SVFzcDJm GDIvfJPUjI9koyeuf5nh wqziZyYlTVNqTAy2XYh6 LWFsaWduOiBsZWZ0 SnX9EME4dMAhlU5gsCmg tlpsxK8oGuh+QmlydGgg FFD3WNo1K3LoYma7UDPy gJhuAK0zmVWvFJcg Vj1huPsenUllPX2mYCTo kyijq784CtAkj8pnCEEm rOHbVOwzGGZ1U40im8U8 SBQoWFSqDNJ6sTG8 xS7pnPnmdkthiZXnjKnv xrPekNyvSDkgOCshO713 YOCldFccEyPmSXe1I1Ak Mqh9VZLyyPwsNG8h wVLoKWxsMa8abHczmXhb DT0cRLHocgich979RxQr n1hrDCWikDKgZXukWUD2 T14it1Z2XFWgTNRl NAV5oZA2yR2htIzzzzrl bGVmdDsgdmVydGljYWwt RNegY227SRMpxAeqQfXy aYw8K4PoZsr8TJBj vVswNW4knKCkXWyfCl8d gUkchQmsLT9eQPZzgkhi a781YoFxc8ikCDLshDEp HNgwVIU0X43dp5H5 QGPaJOJqOOW9aLS1dM1d bGlnbjogbGVmdDsgdmVy mNejCJlhWHqgR419KHRc cDsnPlBhdGllbnQg YIgqUWx8F4JvWeyfvMQ+ DO63VOZrLX60rZKpcAFa u0fotWn4SeOtTBVbGKP0 wUfsZLlyu1OkFSCl T31thZTln2V9ZFRnhVyb wMHwRaFdhTU2zZ8jAUec uqfoh9zvculrPtzas0kp qh22sD17M69uIZcs ZHRoPSIzMCUiIHZhbGln si0ikV5aEr3+PGNvbCB3 sMY0zG2oHRCiVcF2DTzv I971XwJiyJUtGpwi c9usv4ihbSc3QyR3JTZp scFdhDimRTZ1z8UcLl86 O18bXYiqWSImCQJfFHZe SBUyjZksxf4bhO9o Ii8+EFXzcYD5cWU6pP9c OnQnCoO5ZVunA119KlBk zEUaKclmQ53uW9NhdBB+ BUZmZpm8XWBwrWki GJ5jdMKuVXbuSl6aTBY4 BmZaYoLpHKzoW8QhVOJc lpsuivplfVF0FHTdTAVg rA15Nb2ktDsvHGWw cXYIlV9smdtbz1jbbnzi PoZbVQRaFFc7SRe8MULg rOdjZyWvYCX2QaY4YUE5 qQPqtD2ssKwnzuwj fH0jZ8DfVFJlprqvMl34 fF0tKwSwFjJ9UJypCjo+ C7STSmvcBS4GI1iMTWdz SzwvdGQ+PHRkIHN0 lRwuIDubZUYofR9wGVRc H3u1MsGuWrO7KKvhX4Yd SJHylvbiIn93cB1pAwVx NfS6KHhmO1YhspK0 PASzyHHwZLdqYSF6Y52w k4R0LLAlNUDeYKO0aRY5 aS0xjBddfmtzsSSgjKda dmVydGljYWwtYWxp J300JPLlfJbkBsBwVcE0 VuZ6HpT6S3NqKnk1HVGk bGxwQF1qjPLlJMsxUz1j qCmpsQnpUK6dWMKw bpbxMGDrhY9fKOMyqFNs uMicPI9vDWNxjohhn122 TiBxDVJ2FSFviXIsO5Tq xW5gQlQoWIPuYQCn G1PjwVAnOAhyR132RZuv YvL3KJApumSpC0GrLOMa aQbtZtA6e7C1Ia59PDBN ZWFyczwvdGQ+PHRk RLU6rIviTGtwGPAelT6t MBXiU4i7EdCuLsI3DXvj Y7TvCBNebmpiXq23rB9l QkCaGqE6QKluE8Ma uoT9BUBesRGeJIrvBPT5 Q17wo5Q8WAEtVCKeYGH0 bIA7uA1gsOpncajpjUIm dDsgdmVydGljYWwt ZOdaA105ZPQkeUmrUi2H SMZ0L4QaZnj8IGAejRqs JB3hrBGoPUvoUc3rnZsm cRxrUF9yVLErefen EHXtpE3jTTZiuAQodLli TG1cIWVowlzpf603LcNz IQP2OAWafOKmT4HhrE7d WqLcFTNrAJHyA4Su vDDrQHsyF793GQcuRfC1 PNXoyqBkJ7WqIXZxpWfm DjR9g4D0Tl2SNNoaeEC+ FN30fs92K1NlGgto Eva7WRIfKMJ0bCR4wE0z SVIzOTttp5T2rMX0W7Tt syYftz1kq1pzRIIjMQpt W71urWSvd9V8DMXw qOD7DDLliNloBmHraG21 Oyc+RAYuuPkwr1ElRati c7qgs9dorDp6NkBdESVg gjOrqEkdQLZ8v8Kb Do51Q81sGEcmDDDePCCl MTAkHLVxpWtfsp4wjC7b Ii8+QLJufIY0dZG6oG2u YrDcZqD1HNnyM582 CsAnbGVzRcexc9yif1wq rEr5CkEfGOFqjfGxgRtl HDF4v8DnPk05F6PolFvh x8OmDjl3iq87pUPv u1J8tLR2D8VyFPPwivsh hQZjbTckPI9lJMFqdqtf HUCttQ0dMRBjB9o8TrBb RnP6CNmsL3XqtiJ9 TEBnhWSlTTJotYDOlK7g mzpjw8macwugFoRqOWEg EGh2EEc7MYYeiNclGdVr XSJ8PlI1KGH4rFGk wV5ehMxtxpyyqA5sHfh+ LKk1p6lrqOGcAK9hiLW3 UZ55PO87nDEwt5W6lTQ2 N8EnWUHliunnmeah hJB9RITaACEvjN70Qr6i mRnkZz1jUWFuGCJ0YPHe zJHcI0YkoH4wExMzYRVh AZRnJ9KtjCBnMLjp C139IJimTiM4UOUxmqTe B3GoGDYavCttIaY6q7R6 Vg1FSM59ME99QB68lYCe s9B9hAB4X7KlCLEq elxzbflnhRW5LXBbMQRp gN28Ez4lcNytGh4hXHYn RAT2AYQnuIMjI2XgnW0s MeLnYHDnTKJpZ4Od zVGnAXpoV130JFxmUcB0 ZIWzayKfK3RoXPEieRbz NzY6h9C9Ih5JMb13KS24 YU09jQYef6R3kBW6 E2SqGKJgweegsdybpNF8 DQZnIZUyoR57Gj3pmQfm An2dFBDpFIZ3STLrrMSw G6VszW9uYmMrTJAl IJDbX9FuhRCfKFziS761 XPzqOsS8JOHptqWvJ7Xj ZYWzlLbsRpQ8f2F0Od3D GEjyymn5X7GrXiew dHI+HV64HMQwJH70iNYz jINre0iogGo2XjCdWODm EDW6oVovZHfug0KdPRDi G42gjDAbo9M0RTWa bGx (more content not included)... [facility] Coding Summary HTMLBase 64 EmfbdakrRDt1dUg+PGhl YWQ+LQ7BSSBhS22igWNd tG9hL4TQKTeAIeypJGNM OUvIIpMepcUtSV3gsDYh ZXJu IC8+SE0rFNKfPyyreXZj p1Q5vNS1Q42syq9pCLnz tVE4LLEnRsCcpvmer7ao kQx5AXodDkyfAlNo MJXqzA55RTT1zW13Je61 zPDzaPMao1vqcHj1XdHa DKCsOEE7mUnpEKhty5Tm SPXiE55wbKRve2J2 IGNvbGxhcHNlOyBlbXB0 xM3aRUdmskmfk1brddma Mfn8qy26cFTbz9L1zHV5 E0SotzN9UBWfiGFt IwkrmYJXoT8pvsarx0rg ulfnHnGlZRSfIJw5QKy0 PKGefLvcLgZpFS32TEK7 PWVsczCkT0QhCMJk fSrcGnD3n8N7Pc9HR4KG BtqdN3TKREJTEDnbsJE+ MW93oy23F2EcJgmeTan6 QUEkLBC9oOG6yF9v DRPzTRjiw6A7iMW8Y7Ah zwVwqm5uz4bcAURzQIcn Z30hbUHbe7F7FDFudGI1 JAOfqVsjWiJzmQ12 Oyc+VIBulXqcz4EzAydp m0jho4gdzKb1UdgxAZCu tvKpsBkwULC0b6BsAb3d MDIcxCQ0iKA2rE0j ChXuRuA4PClqR947BsPk cXRkNvacH38jM1XjiPT+ JIFjNwv5VZIdgCvzCK4l D1LmWVEhtekvmWFy tYhaAR8lBTMfnhdtSFZu cP4fZNXwI5k5CwRvUmO1 QMgcP8WzIUSlieunBq37 nV0wNbNgToB0JEzy I7XxinG2FVEfnNDvPYye NUD6Q36yx5Q5YCAaSALt WYN8nLK0lV5upUetrjst bGVmdDsgdmVydGlj IAieQZcxH046GQVblCes PkNvZGluZyBEYXRlOiAg MDYvMDUvMjAyNDwvdGQ+ IYIhXVA6nQcqQDJr aBMvXVqvSd3vwVfrxUxb VY5lMIOlyjwkPILbaW9t OBHiyINaeYqsQX5iYPNj hwdpz134NkYoDMQ0 LWWajFEuR8LjnW2bJhEe QPTkSTAjD4RouTUbRIpe R607FNnrZoH9HSBlfeBn D3WnSTHtiQskWhI0 g5M6Ry5Fn9OkziedL7Fc sELrCrToUkecSMq2T9Lj PjwvdHI+OL21OTCpOG53 ECi0QSX6pQkaHLdd GGQuU8PjxM6mPmEkOGWj ZGRkOyc+PHRhYmxlIHdp ZHRoPScxMDAlJyBzdHls CZ7iNy8nENSuOZGa gVrahBEyQhLrs1raDBNe VFgqCQ1dpTgnD4FvoVD4 DGRmh9j4Jf99Y34vJ1Ad dXA+GPUbdWY2zSB9 eR0zMiNeMtR4WYxeL374 TiRufCTsMtoqt7oby3xd rDw9CjJ0AUHmedCsgOcs OTB0l2GlTv60E43n IHdpZHRoPSIxNSUiIHZh bUkuok3rwD3nWx9+PGNv nSP7jQX8uH3xLhYzPyE4 MYywN184JzJqhGXm Kzush4tpw8mtjMp1BuDn DSRnhqMecHrjVMY5l2Mb En06J9GgeXtsz3XnFcx4 ce50gGKap6I4tVG6 T7DeEKSlawsgiCGtsJfg FN7xBDVferdwNZMyhX3k ZBUzF7x0FgLnLuY5IKio Q4XpdyF9MJVwkLIy HCFykSANzW8wgqmas1oc staqHlXnTJCmSMp3TBo0 QNRunQpuBuQxZGZ2FgX6 RWN5vOBkcY6ozZuq odbukC5sWud+YAY6oSWa rVRXGF7oPpqbiBU+PHRk UEV2xEdoWYlmZEGtiQ6r OFMqX3b4ZbYyIzZ5 QQyhP8XgumY4WZKafFSc NCVvoDBFiC0rxboxt5lj ttevCwPmLIHoADi9LFv9 LWFsaWduOiBsZWZ0 EcC2RQE6iWKqhZ2kzKrq trtjsM8nFqh+QmlydGgg QQS2XFu2R2UpYye8SFMi lXqbRT9wyLHrUDlj Kn1iiGtziQwfDG1sYZJb dfbnw979PoSmg8tuWUXb oLMmZTshRQH7G90xu5C1 UNBvOUGxGRC8xHG1 aJ0ieEiexudgwIHkuTgo nxBnkHgkHFhrQFdbX051 BNNbzUdyBlYhKBj0Y8Ad Cvs7KZKcwLeyMM4q wAYbUVkqTr2htIedzGqf ML5wBJZtqwfxs488EtQp l6qmIQSraGCcLYyoFHT2 N78vb2N3GQYvRONo RAW4sOE0yL1jcDzxrbfu bGVmdDsgdmVydGljYWwt UMegC255HEQnzRfxKwWu pVs0I5SiQtv0SSBy qQekYC1zkNOzGNbuWf6t pJygsXvtMJ6sGNYcnlyt y728NsPlr3ybRSGbsCIa SOxxTIS6B95im7M9 YBYkWXLzADZ2pUZ9oT2p bGlnbjogbGVmdDsgdmVy nRubKIivNExzP518XGDo cDsnPlBhdGllbnQg JSdnZOc4G4CvVqbuxHY+ QV33ZOGyZX26xHOenHHi w4lyjJt0XpQnJUOjQVD2 zFzoAUccv1EtDNHt W98ncXFpo5R7VWSrlSvv fZYiSnXlrAS8oV4rCVsd auqet3iswnvpChfgg6sb ve64zV06D90zINzm ZHRoPSIzMCUiIHZhbGln ll8mdX8uPo5+PGNvbCB3 pTZ1hU9wCDLsNdX7OPfy Y134KpAayMCcOayk q2sla2xchTn1AzH7EARc skNnbQkqJFA0l7MhDi37 P87uTHyuXCEhYORlMJTd CPKrfNrtom7vjS8h Ii8+FHGckUK7dGE1gH2x VsZkFmA6TNpfU983EhPi uAIuSyhcX04gD8SmuLD+ PAYbOqv1VGSrcSni XD3yeFSaWMtfKf4uKMW4 RqOtLuKmGQpaD3HyWIEu pdpbrovhoYX9ICPlEWAa jD70Dy6iwQajSNTv zWZPhX6palfqy1otoxyl GkZyGNEzYRl0QUx6DPIa fHshOoAgBWG1VdW5LTG2 hCBnlX2zaDnbbutg gU3dT8XvLPSwjdrkUr04 wD8oVfCtTzL1FIfhAvd+ W3SZYidqYD2XE9gMECcx SzwvdGQ+PHRkIHN0 tZjfXClrHTHgqU7xSUSn Y8e8PmIdJbE6BVdrX1Mn KTKxrwzyUm73iQ2yQzEa WoK1LPskT0HfnmF0 SOSzdBMcIWghSKU1L36c u4O5XAAeIYVhAKU1gMA4 eS9mdMcmxwnheRQljPoz dmVydGljYWwtYWxp G858KSDcqJxzTdWkBiP1 RtY3StS0G5RoEev5ZLFc bZqpFS7rrQJaWZqhPk1n oGidlQjaAY0yJDNt ojvyRQJgaB5eSVDitSUk qHnpOZ6iLYSozhiyl513 OzKuGXC1MPDftDLmP7Ic gR4eLgSqKCHjHOHd M8KxtMXnGKouV489EHxw PkH9POIjtjWoM0HpSOLw jKgqCyT9v9G4Na20MICH ZWFyczwvdGQ+PHRk GPC8oKjeKFgfXOLdqO4f ECZuI9d4NbHaSfU0LJlf E9MxBFTepfzfDa14cY9w AmBkHxA4XZhtA5Ss zkY0ZZQtjALyGSvdWLZ7 K70lb7U6NLQtBJIrAAU3 nKO8mJ3wuJtjsawqnYSu dDsgdmVydGljYWwt PJjeA726NDYohVuhAs1Q EQR5O5JgMbu1WTYbiAxn TX2wnOUsZEhpSk5otPeh oZxwKW6mZIJqritc OZXucY2rOWXoeUZapUzp KM3uUXZsxplim037DaJg NZJ6UZJlnVSlK0MchE5u JbPiYBDaNCRyC2Kr uHZiMOquX052EMxrLpN8 SUTyopRqB1EpDDZicRue QmN0d5Z0Nw5VSAeraEA+ NB38sj59V4NcPxpw Uqr0FDPySKD7eFV0pY6z ZVUwVEuvm7N9rAZ9S8Vr ihQfrv7bu1ezDLRaYAhn Y33hdVNcx7C4MZUp cKV5ONLivWawUqCulW79 Oyc+QJNeuAuzr3UqGwxn h2wqd0tznWm1XnJvBQEf zyFrhLgnABP3t3Tx Mq15U05iFQkhOQWrNCBg QBAgTTBkfAqnwi0jcX4p Ii8+HNOnlPQ0gBG5iB3f SdOiVsA5RCfpC114 TcFomYNtGehtd2jmt6ma bFe9YzVmJCZxicCbhUlr HUO4m2ItDk23R8JhbMml r2JdDzr0hs92bWNq x5C1iOW8P6QtDEVjjzfb oGGxcUtmEU6aJCOrilsi FAMqfY2iRZYbX8x8WbZp AkZ9RVmzO2NvibV5 KIVdrFUqUJUqkQNJyM9e eudvb4uzgkedWcWiYLQs TFf4WIc3UBLqkFurJaWw SRR1NeK2WAI1sKMd qW8zyAoyzjtnmQ9wZbl+ LGd2w7priIVuHS5naRM3 HX36FI35rUChc8J9wHU5 Z7VbNWThbhpdssvx hEP1FEJiAZIrmO86Iq1d eBnlJy3nDQMbLDN8UGSl sUMyB3DdxN9rGzNhMUBp DHOdV2KiwIHuCDpw X610AGgvKbK0XTVfdzNe S5BtEMRprRxiQdQ8p6X2 Dt3VYL33IN32WQ74gJVb o3L7tXC0J0BzEZHh qzlgwifhgZV4XGSuRRTg iH34Dh2tuRjoQi8iPGUq NQM4ZKHonQTdV9FoiI9g CpDdFDKdGWOgS8Sv aJXfRPheA773VSwcUaJ3 QWDzclBiV4WuLXXlyOrc BjE7z2V1Ag6GWl09DZ49 NF54sIUrt2R0aGG8 N0ThYCRsbumjtbtlbAO0 CHJpVDGdoC30Ez7wnOfn Wz3hPWSnZVY9TYGkuCXd E7PbbO0gCjHnHKBu ESEbC1AkhCYdWZlcA916 EDjeZgW2AXWzpeDgZ3Mn PQEpbCwrImB9o2W5St1S TOvqfkh1R4ZlLzsb dHI+BP41RRBgYT09yGSw pLPkk8niwSa5NrDcLMDp QLB9cLibQOrwy0RsVJDh Z30pbTOtj1E6CFZg bGx (more content not included)... Normal [facility] Wound Care Noteon 10-01-2023 Wound Care Note [id number] [facility] Ambulatory Patient Summaryon 09-25-2023 Ambulatory Patient Summary [address], [address] - Visit Summary For YRN RICARDO Age: 63 years Sex: MALE : 1960 Address: [address] [place], [address] Home: Work: -- Primary Care Provider: LESLY MELCHOR MD Race: White Ethnicity: Not or Language: Somali Health Plan: 1?[facility], 2?[facility], 3?[facility] Reason for Visit: Three month follow up for med refills Prescription Information: If you have been given a prescription for narcotics, seek immediate medical attention if you have any difficulty breathing or any sudden status changes such as confusion and sleepiness. If you or anyone you know is experiencing suicidal thoughts, mental health, alcohol and/or drug addiction problems; contact the [facility] 26/11 Crisis Hotline -Text 4HKGJ to [phone]. Follow-Up Information With: Address: When: KAREN ZAPATA, LESLY To [facility] [address] [place] [address] ST/[address] [place] [id number] In 3 months With: Address: When: KAREN ZAPATA, LESLY To [facility] [address] [place] [address] In 3 months Future Appointments [facility] Appt. Date: 12/24/2023 2:15 PM Scheduled Provider: Lesly Melchor MD [address] [place] [address] [place], [address] Future Orders No future orders Additional Goals [...] 3 m2 Body Mass Index: 47.2 kg/m2 [place] Body Weight Calculated: 84.047 kg BSA Measured: [...] tab(s)(650 Milligram) (more content not included)... Normal [facility] Patient Handouton 09-25-2023 Patient Handout Orthopedics [...] walking or exercising. ? 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 ? Qhdwh-ge-gnmlti activities. These help your joints move more [...] above the (more content not included)... Normal [facility] Coding Summaryon 09-20-2023 Coding Summary HTMLBase 64 VmbfijagSGk8rLp+PGhl YWQ+CI6BCPClM42xlCBu nO6xM9XSBOtQQsgeKOMO UVpHUdTncnMjRI8cnCNy ZXJu IC8+CF7yTNJeOwqicNMc w8K3sMT0N81qhr5zPZgh vUS6LJZbYiFbmtqvc4aa zOt1SHuzVtnpLxGq WGOliY77JLH6eA85Ly10 mOCiePQju2hfqUm4OhRj OBRvUOZ7tOntYPggn1Ja QAXtA90hbRMhf6O4 IGNvbGxhcHNlOyBlbXB0 rO8pUKrrbahms8cwaxna Gok4rn53sYMql8S3pTK4 W8UuzmX0ROOyoBWt WxppsSOEmH2pqdnkk0gq rpjrVgMzVGMlNTt6CFs2 VMQieTkeKgXdHH21DWA2 QVBffiSxP6QgIGZb nBczPhM4b5K7Tf7UU2PQ FtitK0HLWIUMRPfxqWC+ RR56tf28Q3KmXgqbPqo8 EWRtWKI5iVF0lB5r STHsXNeaz5S2dPH8X1Cc lfNwfv4qq1kvIXBbIGwb Z06udXYpf3A2STPveGX5 BIJckBeqKpMmcP43 Oyc+XTSvhHilp8CvLxpp j7igw1qnaHu2PsioBYHi meXhhPdvDDN1l7BrNe6b UAObcMI4gIT4yK3y TxRxAjB4HAmmR743DfXq tHGoHwonR00hN1AnoOJ+ BWFaKwe7NQXoxUxcOC0m Z2LeXSSoktqtpFSw gIktRG1qAXEyxpxcZADp sZ7mEJJkB6x3HuYaSuP4 DQcrQ3HpOTPjktgoWq75 gY4vSfJgFgX4JYjp A3WqkmN7AKHajUPsHFwi SWR3T51ls4N9DPRdKISq WKX3oEW8yF5prErklrty bGVmdDsgdmVydGlj LMkhIYmbN571NLZcmKak PkNvZGluZyBEYXRlOiAg MDUvMTcvMjAyNDwvdGQ+ BBNhHFO8uDqnGOAi hNKzCNklNm1ysBplxFig HD6rYDEbfiwgEXGfeE5r DPBokTDfaGzxPR0xDRTl ehlfd389JkNdHHX1 CBUaaAPfT3GoqC1rZsFp ZTJiBIFiG4NuwDZvKMze C765FGfqYaU9EHTtalFo C7VcUOLpwZolEtS4 a3J9Pf1Jd7KakwroN3Ea sMVsZiCaUwkkBRp1Y1Us PjwvdHI+PE36BFZyNI53 TXd1ZNW7pUytVObn ZNAnQ6GynE9uOkIxUXBs ZGRkOyc+PHRhYmxlIHdp ZHRoPScxMDAlJyBzdHls TA7zQo3lRHKmIVPz bDfzkMVyErGsx8aqPISf EOunIX1isSptZ2QxqNA5 YBWyi6g3Ou90W33lV5Ch dXA+RRYcqOI5vOR6 yK7rWrKrAgP1ELsvV383 CkTloWZsGdjuu5yon4de kEw5KqJ8KJGmecXjkIia BGH6n0GlZi71S06i IHdpZHRoPSIxNSUiIHZh fXpsri6fqS8vJg6+PGNv cNZ3uAU3dG2jTgFiXtX4 BAkiY378CoHuuDLt Gjsxe9igf1wgkLz4MrMx NGTwquXlpDdeMPP5x5Ir Sy88Q3YfrPrtt0TwBnv7 fw75hARuk0L1sRG8 M4XcTJOxtmlrzPNkvCzd JX0kPFNdjmwrTTAofD3u MWMsM4f9FvMsCrH3QChk Z2PpeoH6VIHtnBUi XOKlwAHGrT0sglmyd1tn nkvzBnKsKPQwOVy1HMn0 QXSpvIjwHjHiUYJ8FhJ5 AWD3yQUqoY4aoJvp ryudbS8iGok+CAZ4sNIv jFANHN0rCcwgqQQ+PHRk KQF6yEdgZQzoVNTgdZ3w HVOdA1v1EiRxVrI6 VHubP2RjwoM4SOOinOOz AKMkqLNJbD0mdmjts6ce mvljAiExZKJkAEh7MPy8 LWFsaWduOiBsZWZ0 LgO7QNR0hFBlmM6dgZid gbhmsF6bAsv+QmlydGgg CJM8RLc3P8HrDcd7ZSGd mAeiID2whHOhBNwp Qu1pvQgxaTggSW8qSMHh shakg851RkZse8dzAFNp aQLhOKvjRUH6D18fs3U7 GGSyWPRjUSH6tQX5 tQ4xiEbvmqnwgEFrsVba yaEkiSbyOLtmLQxkJ838 EDJdqFwcWvDiJCj5J7Pi Qhw3BTYlySvfBM3x vEXxFVokAe3okSwogWod AU8kDHFqqqymi987WgAj l8kyPZTcaFMmRKfoKAU0 C05fq8S5HYYkTLIr IPZ1cKA8lP7wcDbrtjdq bGVmdDsgdmVydGljYWwt GSuiF122GLYvdTmnYdOu lSx6R1QjEnw3RMRa xRfmHN8lgIKfHRzxJg2v zBydqWksDB6fDIMbduoz b295QeAsl6beQJXrnECd CRozCEZ7B65hx8T2 AKXcHMPuVIN4bLU0eS3j bGlnbjogbGVmdDsgdmVy gRkpRVefFNmhY410FDLw cDsnPlBhdGllbnQg QGqfGSh5E7EnZwcknED+ UP27WUEsZR60qAOttJJz v9dsaSo5KkAxNVReUBS6 lXveWFivz7JrLDJl Q12qaZWid0L0FJOcdQzr oXGpKpStqBV0qQ3dDKje asoep9rcrkqhKzglo6fw if62zU04A87nEFcz ZHRoPSIzMCUiIHZhbGln cx6nhI5jDu6+PGNvbCB3 dPW7vV9jAKZoKjN9LJny G081RtObbDEdKelc e0hby1mgwUo1VgW6VXQw fgCbhFydDAE8n5XwXw57 K73eFRnhTGYnSCXdQCMd TFNteCazib3imG6c Ii8+WUAbuAV4pXV3xY0l GeWxMsK3TMtqJ363QnOt cRIcNlqxO21xE5ZvrWE+ UPSnPku0GZXujWsb OJ3ubCHsXInhFq8hMSF0 BlNuKkYcDVkiL4RnZKSe qdoobxilrGG7KLBrXSFa sV68Kf9mzZphBGRa wNKFgL1sewoqn1jasrir LdTjAINvWCy1XVp3PTGy qSadNvVvXDU3NlJ6FHG2 sEKezN0hhVyibrdp nZ9pP3RdRZFkptccGs79 dM6nUiEdBrX5JFrrUsf+ D3VRRyjwAI6FU2nYRNhh SzwvdGQ+PHRkIHN0 vDytEHzhIHYbvD3gXYZh G6v1CnIzNiY3WOznK3Cg MGGrlsyhMn36oY8eCeNo OmC8XOjdX3TmliA5 NGYakBVbXBqkTGC8L77b q1P3OIUxYYEoWCY2sPM0 zJ0zdBzgtpfsrVLwrRbf dmVydGljYWwtYWxp L839SXVqgQonKrCrNkR2 XuH3DyY7A9RnNkp4PCZj dXjeSO7osNJaBFbsXe5s oDfzoIeiSB8yWTNj svhuENPxrP4pQGKgnZGp eLrvYL7qTVCcvuzkw252 EpPmIST6MJNxnVMpB0Fr dC2aEfWbHLNgGKFu X3LrzVNcDZrhZ915ODof YsU7GSPyjqWbO0VpLPFe xHsxSuM5k4F7Yz85AWZG ZWFyczwvdGQ+PHRk SIG3jInmMQorUQFnlD5t SSYxV7w8UeUgSdV9SUrw R3SuEMAvheaxNz37lL8u OuBmXgO0PMcfH1By qvZ8KLQnvBPnECqvDSB1 R26fs6B0DYYmLKWvZKP4 xSK6sJ0xrEuuafreiINo dDsgdmVydGljYWwt SMxzG647KMGhfOdnUa0B CEF4Y3YfJdz7JFJbcSrn FF8nyNMuXGlrOb8thDne oNmxOO1pMVUndnxn YYHlwZ7dFJAtsGDkqGyj FE0cAHNvrxzgt415BkSb RGK2OUGgcEFkB2SyoU6h TxDyAYXlWOGoR0Gq bPWaQQqbI040IWbhDlO4 KIPkucNpB7TiXBAvnJip XlD9o6M6Tp7ENLgjvZJ+ TF28ro43A8ZgXccm Kwk3MEHcKKS8qYC4sX6i AGDeKBymg7W5eKJ6W2Ht lgQpuw8bl0ccDZXqOVxr U09oeCHrp4N9QUGb yNM7BDWzuJotDmVzpH13 Oyc+PBMiwBkzu7AgDuze z3bno9sujJk4KeIuGFMu xsFtlHhrMCO7c2Bq Ny04H75lBQhhZTBpYGMi HTNcDCTqbTcbux7eeV0v Ii8+ZTLfpIO5zGH0mS9y SdThEfZ7EElbD871 LdSdmOKgBvswc3sht1rz rYn1VcWcBHYmzqXmwBjz VBT9g5AiAt64N1ZonLfh h3LuTpd8qm22lZMh g9W9ySJ4O4WbHGZurinf wLAznIecLQ6dXEEvkyhf DXBnzA9cXIFyE7z0ZdMi WzY4QHnnI2WtzwG5 EORncDBwMBPiiSOGdT4r dlvxv7tbvqrxZyFvEIOo KNi6UKu0NJRrkVumElPj MPG3UoG7GGV4pYHp sX6upQhkocaiwG6kNok+ YPp8f1fptZEpLU3hjGS9 NV84EH86pATkl5R3iZJ9 O8FdOABthmcrlevf kCW4IVWxEOEooW70Xx4h oKkxVz1bJDLqKME8DXNe fIFdM9QntR8rDrZtNJEx XBVoQ3AgfTPqLMvq H306MLgaJqG0LPLtfsCi G7RhHYKyoUfnOrM7j0H3 Jl9XBI59NY62EX88sRLx s8O7pGN0C8ScEMCa ddlabdxnoCF5VJIbNPAu xJ64Gi1dkShnBf5wYRCf IIG8TDJsxZZoO8EgxX2w ApUoZQBfDCIiJ3Ey eIGdPRohS146YIhuQcL2 FBUhydPsO6CtWNIxpSmf GfF2u3C2Qt1LAy83DF87 DA27lGMwo0N2tLM3 W9YdQMUmahqmiofhqGA4 HNDeTSPthC88Lu3ioNqi Fl9yKSIbXYC4BLQjwJSj G8KmwH3kYySxVXFs WXGnU4DaxCXhEGskK032 FNeySdY6HXUebgBwO7Ow JHZqrWqtPaO5r2Q8Yp4U MZeesvp6Q3YiUpvd dHI+CQ83BDPhQC05iOWy zXVsp5ivuEl2QmYiEITx AWW1wRzvVAkga7UdIBBv L44goSAbt3P5ILOo bGx (more content not included)... [facility] Coding Summary HTMLBase 64 InyvazojOUc3qTm+PGhl YWQ+MD6QIGIiE13ywFBd qH8fL0LDSKvKKhqbLDWT SDvTHrZauyBrEY3cjLBf ZXJu IC8+ZN2jFCKuKznyuFOy g8A2sOR8X53epi3oBDxx bMN2EYWpAzDxvqjrp9tm lQq5GHkmHkfqZyWk DDJybF99SCH5jX01Sf84 zWReqXPpc8wkdLd7BoKk WMWeGCB3yZtmWVouo5Sm VXMwG55wtAPox1E2 IGNvbGxhcHNlOyBlbXB0 hZ9oRVbokdeiy2lzhhhb Cfp7dq74jSSup5R0oPD7 W1NpsyN7AZHajQCv TcrpnJIPaG6kefobr0rp ithsYuIyYQBrUWp6ZFd6 QLGyzSfoWqJjJT26ZCG8 PYWjucHxP6MmTQLw yOogWmH0b7S9Uc3ES8MD JvrwL6VVKMOLPGbioNJ+ XV78ro44Y6RkJdmyKqy2 QYEdJXA6cGG4mC9s CMHwGJujw5K4sTV0T1Op hpPafv6ke2hzQNLeUQwk P40odITkj1F6ORDcpNI7 GEFabLenRyVuuM31 Oyc+JJBrtSvkl7RhAzuf w7deo2tivXp8MmaxXTRa yjWwlFonLYV1j4PsEg6p AKJjzKL7pFJ7dI2i FgQhVqE2FUfpZ726MlDy tEGgQztkT72rS0AbwLO+ ZPXjHde5ZOLpnHbcQK8a B2OaIBVhihajiTWz oNkdEW1gDXOhtdirYONd wU7oGHEmX6y3FzHkGqK6 DLxhX5SjSNCectlvQg81 uA1rLkGcFbP4GZgi F6JkcqL9VNRqnRPxXVgo JJJ2E60zz8R2QZWwTWWu IAJ3ePY1vR2xgCmbhorj bGVmdDsgdmVydGlj SYtfIGszI334NQImbKee PkNvZGluZyBEYXRlOiAg MDUvMTcvMjAyNDwvdGQ+ AXZzHJX3tLgnZEAm cNJzLKkrXa6opKcwyMgd NW4eLZAkcjqxTACknV7o OFRxgKJqxIqbWG9zBPRn wumjg706OrTfGOI4 WPKpzTXrB3BmeE6fQaGf JXUuSTHmA4QlfLGuGDrp U085ANrfOgJ0GJIkyuZl H2UqORCifGxxHtR4 n9N3Ia0Yn7CpjmlvC1Ox lLOlOoSeXuooVCv3C6Ti PjwvdHI+ED56KKOfDJ86 XGz5BNU3cXvqUYcq HDDeT8JqgR0wIkJlUGHe ZGRkOyc+PHRhYmxlIHdp ZHRoPScxMDAlJyBzdHls OK4mRc4rSBIiXARn qYhxpOQsUhDec1enKYFz ORzgAW5yvZagQ1JlgGK4 PYShp2x1Je27N86qQ6Ep dXA+UXAdtPH4sBS0 fL8vVsJuUvV9EOytQ093 DbGpcLIzUvipz8hll7js ySc8HwH9FGVjxqMuyJsv CSD9g9FbPm12G27g IHdpZHRoPSIxNSUiIHZh nJaarr6ltO4qKf0+PGNv oSX1qOK9dD6eGsLoLpY8 YMexZ423HtSyrGSl Vgkzu2ezx7lgzBk2UpLs FNGzbvYpzTfvJSF2k6Rk Ra42K1TbcJmzh4McTiz9 ox67zNEnu5C8eAI5 B3NnERHctgclaLIkxRpe PH8wRQYzaomvYICfwR2j UGWlN5g1EzBmVbU1EHci S9TmcxL5VFCihPSe CMCxwZSZxY3xqyohu2lr njpaTmQgUZKdTFk9YVt6 XMEczSluPwDcWXB5NfX2 HMM2dWButD7siRvg xzxetZ9xIjz+WHN0nLIj vWVQVF5eOsfpvXZ+PHRk CYF8pWpmFNxaUZWkjY7f JEXoN2d4NhTuAdC5 HCarR1QpniL8VBMxgVDt QARylCCIkJ4gjmsfs2we hdmwIxXjWWXxNAd4AAv2 LWFsaWduOiBsZWZ0 LhZ7YDA4lIOlgM9fmVcv xfklyD8pSyb+QmlydGgg NFG2FKj2W5GhQcp2PHCi zZsaMD4opCRkPPjz Al2ejGpgoUgcQS6xTCLu jnoor843PuUfr8vqMOYf hEXuIJkuEMG8T93jf3J1 WYKtVSGeEPD2pPD6 aO7zdBdkrelrrNYvzCzg ptDleCndWNqqRRgaK798 DNQuyFycYcZmGPi4X1Qb Ezz5WSVcdVmfEI6g nRNwKWggNa9ygRspdOky XB7rADWsiiyfi051KyMz c3rkGDFwyXTiPSeiOYR8 A05iu4M3YEDrFLNa LZA6qOX5mK9ewTflzqgg bGVmdDsgdmVydGljYWwt RXfqO217ULAxhOkpOvUs tLx0T7DzJuq9ZZXy sWpkSE2kfJYnWFhsBr6e nDhxjAitSP8zVRKhtcwk r687AtGkg6igTDZntBMp GGrqBUL2Q32dq5C7 XEQaEZPwCDX4cMJ2cY9a bGlnbjogbGVmdDsgdmVy vYvkUQomLPjbY757IMAc cDsnPlBhdGllbnQg NQlrDHu4G2YtZlvfuSL+ SU50MTDkLA48xGNjsNCq o2qttKd5BcHaVESiVLD7 hQjqTTxqx7InZUSg X16khJWnw3U8HTZgmElx hTJrQdUtkZA8mP9tMKhw bxvnm9fnejdvQcklp8ch fk29rL70B17iCVwj ZHRoPSIzMCUiIHZhbGln ka5wcX0pFm5+PGNvbCB3 kZN5mV2wHNHrXzE1UDbt Y529OgVyuYYoEcab h7mri4nzqJg6GdZ8JRCw cxNwpPtfNYM2k8VaSw64 M50aDPnwRABuLRXfHPZn AYFxdKhuco8miS5e Ii8+DTPvpXE6iKD6vJ7f RsIcQrD7ZNolM355FtLq kMYgHtqrW74pH0GzfWJ+ MGHhAcd4JXXybSds QI3boJNvHAyzLm5vHBP8 WiXsCdLlSTptF6MpAASi yjpoceospZB6GEUmLNCc xE26Rm3rmTbmAVDy xASEbR0cfnpsb5dblsnn EjHcLAFaSYe0THy3GSPk oHzdWvKxEAQ5WuP8WKI1 fXHasJ0haQokwjoc hZ0zF6AqUCQpgpjjCb10 yT0pEnGtDjE6XKlwJow+ T2LGGnocFB8QD2hXDTyb SzwvdGQ+PHRkIHN0 tDfxURqsKFIszJ8wAPGt L2e8XaViYrQ8ICahV2Ae ZUCoozexHg43fP4cFpQf JyM4XUejK2NszlV3 FICkuXNcCVziKND5W55o a9K2CXYyXPIlXLI9fVJ4 wA6krCweqhcaqYAwhOat dmVydGljYWwtYWxp R151SOMbdDqcJfGjFnS6 VoX9BgN2Z7LrZdv5BRYh tJvcWZ9zjELcOIecXn7o gTrfzKhpKV0lYONk ubpdHOWzxI3gMULslNZm aUozZQ8rEWDwkashh122 IjBoJQI5TCVnnVAeH3Zp hJ1vNhQuYHPiKABk R8YzmAHiJMnfU306VOsw NiT0FUPcofZiE8YcWXXy vGnlGyC3n5N1Zb74SEIE ZWFyczwvdGQ+PHRk BSN0oGsyCLuoQRIkcZ2k OSVvX1x8FfHnKmZ3XOew D2MsUWBwxzlqXe88wA2u BeVpKxF5KQoxD4Dh beR5DHLyhHOiHKasZQB3 V48mo7D7HPKwAMXtBXN9 nYY4iL5tyExjxnaqsPAk dDsgdmVydGljYWwt VMbkY069VXXmmXzeBw1W QWD5H5EdAxj2GJOlvQtq VD2aeQWrXUwiJb5xjKwd dTqcJV9nXVYpzrcf ZXPrkO1ySBFkeZVqxTou EO0sMWHxfjyeg844CtEi DLR0BRNcvKDpQ4WteD2d RzFbYXBrTOLrM4Ru bWBoPXziG133NWihJrW0 JMVzvtRoZ1IgFNWluHws NkO7y8S9Fb1XIJphkHU+ OO05ek95R5MiWsis Vlg3MPCyFOP6dAN6jM3p BKLeELnsc1W1kXV5P2Uy riIcco3pn9nuKIVgUPdk L69yyMVht3P8UJLr vIH2THXuyXsuVfTitM93 Oyc+CCZwvUxsr2RbSalb q6qbx9glcWp9WhRwGNQi xuLnbFwjSTK2z9Wk Zf24C52gGGcaURKdJZJe UZXnMBIrjIclkn6rbY1q Ii8+HFXrqEY5yOT9aW1x DoDeAgG9YNzxM574 NjGknIQiShfkl8awj1rr kZf7UeSjIQDgzhZyhQsn SYJ3g9BlPx45N8HyqNne y1ZjMas8jh26pWWn k5J3vTR4Q3AvADKyktne tXMqyMmsXO7zDDUbgqok DJIqhQ8aOGBgV9k5VkWm OxC8SIjaJ9UqmiA3 YCCpzODuBEXllMVLfU7j ticsq0evgnzuDsExADAq UEj8EMy8KTMhvAgdJmUn HZC5ZjE9HLK5pKDz fS6paYdpmyrbuH6yQhs+ MBv4z9rilWTvYU0daQS0 PU95EX26bQTtc9T5oUG5 E5XmWXWxiyspxbtq xWK9JAFwIKCesJ12Os3d yWltTk2iGQOiGUG3YGSp nLQrL7BmxN0pTlIuRICi VKKaU2VqtELyUThn I717RJcuErT4SFNuuuUd Q2NmQHMeyPijSvH8o4H3 Ax4VRA15IC79DA39nKWh n1O1yXX6S3ExAURw tmfmnteqsLK3CQBrKQKg zJ77Wf2ujYtwOn0ePHZh ESA4KHTgiGIfQ8KttL7p AmSuRICpWDMoK8Be cDMeJKwbT216KMfbLoT7 URHpteKpW1JdGBUupJbo QzD1r2N8Na0OQw13RO77 ZS41dJMqx6K7oOM9 P5GrABNtqrqoxfilgBE4 HAVeRVRyeX30Jt6oyXqc Nc4aJQQnIGR7EZZqzHTr K6DnzS1pNoTkZNXn EQIgT7BqcERgMKufR758 HEwyLpC7NZTytzGfI3Fw GXIqcGooYhJ0y3J2So8U BIkdvgw0Y7YxNzae dHI+RZ93CAVwCH20pNKm jUVga0ruiTw7YjLbRJRx EMB9iRtiNMsuz6WvTTWa P28ehEPnu4X6PELn bGx (more content not included)... [facility] Coding Summary HTMLBase 64 EocsxlxaEUa0mTa+PGhl YWQ+RH6MJXStO37qrNXo yR4tL4HNGMqQGttjOHIS RWoWIvTjnySjKQ3tfHTz ZXJu IC8+ZF0mCMRpXqdxgLAn g6E0nZF5R81qyz9dMHsb jWE3WNXrRwRqyffnj9zl iKi5XStxRxblCcLe CRMjgR10AOI6wQ81Yg14 nUOnpYLqh6vuaQs1DzMr XQIfTVI9fExhLMyym4Dy MYSzT82sqUOfe9P9 IGNvbGxhcHNlOyBlbXB0 zR8hWBkvvsekt2rhfcjl Rld2fu52uIDor3K2wOG1 W0DvhuT5TWDfdLSb PugjhUFLlT4tqyxyu2rc wnsuHxIgSZJmUOd6HPa6 ODKcyPegYuHbKU70COY1 ZIUeepMdF1PeIJEd mVzaOmF6w6J1Mk5DY9RT FpmuL9YVCUMIJHdyoOC+ XU99yl18N5AaXjaaVot9 EUEbOQT9qHJ3dS1u GEJjKFmac8M6yKQ1Z0Dr giBkey4dg9rdQEXsXYrm S68kkRJcj9V5VSJalGX3 TDQeaIggEpGabB10 Oyc+LEHulUqxw8QrYxpr v5nlk1wtdNz1VfnsXNBq lfSroMliAMS2w3KoMu0s VVDxnTJ9qWK6cG8f WeIwNeE6YExlV395OdIv iTIiJkjbH00wJ9JakIO+ UFXxTes0XXQweGbuDA4n Z9WrZSNjcbqkcZFv dJzcMA8xPYWfnfwsVMNd iO2lGVEtI2v3JmCwAbH8 NMpfD6GkECEepxfeTr34 bB6sKiZyFbO2QLox I6KufdM9MMKveMUkUZno RAR2C45xt1E0ZDHbWVVx GOS5oMU4pP5paEiokawu bGVmdDsgdmVydGlj KKetCRuoE362MGDwsDjb PkNvZGluZyBEYXRlOiAg MDUvMTcvMjAyNDwvdGQ+ FDJgMPY2gZtpQFFv iCHxQVfbBt0suAxsvTek EM9rQWBtlpabMNOnuS0y CWOmxGRckLepGG2uVAZy qstrj711DbTrIAX1 NLJklMReY5KtlJ8mEbEc AJXkKRSrM6EaoNEgPKyy H321BQmnZyR2GSWcnuXf S9MgJRCmnGigObS6 x7B6Jv9Dq8TxyvgtY2Oe zFNiWbYhKytrSBz4W8Fr PjwvdHI+XN26HMOgXT94 VSc8CPU5aLjrIKop JACsM9TaaS1oBkTfBISe ZGRkOyc+PHRhYmxlIHdp ZHRoPScxMDAlJyBzdHls QC5oZp3kNEUdMLDl mRecrHTjEgRjo8nvPMVi UAhiTC2apDpsK9IukCP1 LJMfb4j2Vk22H73zW2Yr dXA+AELhsZK7tEV0 zN1sViBbMoV6PNvaF930 HiTmmBAdXekce3ajw1hu vLo9HxP3OTQytpUzuUgi HGH7j3XlWu67G20c IHdpZHRoPSIxNSUiIHZh qAlzfo8lwP7vJa5+PGNv yTU0wZO1dQ4kUgYbUiU2 WEhwP505YgAogOXr Vqszt7sua7dljSs5EjPw HOLckbPdsYqyBET3y8Pi Dg66C6HtaRotu0PaEvb5 tb24mWEme1Q6tTN5 L7GsEWHopdtzvXEciIns HF1nHHSrpudbEOXxeO1h GWNjV8v0BiMbDyT1NUky B3NsadC1RROmoVNz PPRumSTCnJ9zcrufq7pd tcyyBnGvVZRsRGf7XZt8 KZXujFxxZiNyEVV5DvJ8 NIE5yCVmnX8wgRoh ottloS5cCqn+VNH4eRWa yQUMZO6hIrfihGU+PHRk FWC8qWdeFTsbGPOtqQ2z EYDkJ8s2AzApZwO7 ZKabL8QqluD3QIKufBCd VCPpaGVLpF8ghzqta5at ofrdUjLyQJCiKTz3SEj5 LWFsaWduOiBsZWZ0 MiC9GSM9nITrdS1wuPxx nukecF9nEdk+QmlydGgg VLP1JOq9J9RlDkg4QPCb iLlbWS2wiYRqBLyz Xw6csJdfvKnjYG7zXWUp mtczw448FjAuy7ypYKRq yHQxAHoeWVS6D49fx2I6 HVMgTLLgBXC8dFF3 lI1gfHkbjijenIYylHhr neWsjEpoTSgqEDhjQ665 UAHxvXjoGhYsZIx0B0La Yxc1BMDroDblOE7e gKFqZGqnYg4xqCrrbCui MI1cFKZgdnbhj415MrAa t4ipDLRjhHUhXYekFLH1 O75sb0E3TXPcNBUt CUB3cQD8bN9uaYmgcyan bGVmdDsgdmVydGljYWwt OVpbR318PFEouJbcPgTp cMu8K5HdPdl3SEKi fWbeGS7gqMKkUKpgGy7u aPdthMabHZ3zGPJstgmw w474YqTuv5kyZNLgoGXs RZeuTSQ6B39it5U1 SIBaSHCpMUA0hCT4dB9x bGlnbjogbGVmdDsgdmVy uKecJZeaMDblM579LEOg cDsnPlBhdGllbnQg HNbeSAu8L2ScQfkqkKD+ GE66PUFgIB84mFLxzQJn q8hwrZy7PyXrHVFhUKU4 oXfwVWgmo7VwJPHg Q83mxPJox1U6ZFLtbRrh kZCeVvJfwAS8iH8wUWuo ktayi9rajnxgBiszr0ih el53cV99E37aLQvu ZHRoPSIzMCUiIHZhbGln te9fgU5eNy9+PGNvbCB3 jHU3hQ0hGXOfDiY9MWss X314NpMuxTPePyij k8dht5imiKs2WvS6LPRz kaSbcOeoZVT9v4HnPy68 F46pSAinQHObKXMmKEVp KLDizYsaxn1heS9a Ii8+ORBdpZJ0zFD8nC9v LeFqOeH2GUfxN423TqRc gLGvWpoaZ97bT9RsrMN+ BHLvQyn7YTWxjEmd ET1jvYZlXXodRc2lEWX6 JaHiRvBuGXdrS4ZlVKWi jvlweqkkcSZ2KLPeNGXo bG08Kz1qmSqnMDCa nOIKeT3ihxhcd2yzwvpk LoHtNVLeKIi2ERn0WSTf aZgaVdPwNAH9CkX1EOK2 zEBnrW5geYpazsoe sC9uD2XoIULuakwuBo46 eG8yCvFlPeL1BRpfGmf+ O4GFPhmcAH9HS4tZZVjl SzwvdGQ+PHRkIHN0 qMvcAHuzXCYkbQ8wTVXp Z5h1JvFrFaI3OSrkU4Ld TYZdsuiyIf23cT8zCbTs QhS5BCqlT1XyyuB8 PKIrwFAjPOkpINH4T61k k1D7CPPpCTTsDYV4oNW4 zW3ppPyrhzcgdEGqaRva dmVydGljYWwtYWxp E254UHSmnDahLiUlCiM4 YtX4WfR4Q4CjCwm9MSYt mApoUQ7rlSEtOGlcXx5b cEduvPfcKT3nGUQz htjaORCjpE1mCYStrUEe lUyiNJ1eSVMzxcfie054 VdMwQHT0SSLqoEXtH3Vi kD6fElBmBKIbOAHw M2TeyHDbPCyjU691RKwo RaZ3DJVzojFsT0UhFAOv aZatTrW2j8N0Zz74LBBX ZWFyczwvdGQ+PHRk IRD8gTvwQEmwNHAwjG0x VEYgZ4r3JkGxUlC9MIzf D5IeLMFyqegdAk66aQ7a OfYdXdK4FEocT7Zz zoA5HSGrkUIfBFbnJMQ1 V44mp1W2UXWsDSBbDLX8 dPV4fD7bnJriioftyANd dDsgdmVydGljYWwt KHciP727IKUwxWbiAa2M BQR4G5NjTts8NUIsrMzt OD9pnRMsPRgmOt5bsGfo hAjgHK8zCYXgniae AKCpeC4aIMWkyGXjjEiu BL2dDFUdyrtrd707IeOv OMN0RAItuXEuB5TxzZ2v LxYqTEUmPRTuS4Gl rDUyBIxrF865LCeaHlO0 XZLcioTeL4DeJVMmfVao HcB2n4J5Zw4SWQeqsDH+ QH34sx37P8YzHcyw Pco9JARzLCK8wJO7eY7z WCBqQArot0C5oGA3A8Ev tmNdve4aq3eoLLKrRTgu I76lgBMaj2D4FOOh sZO1BWGjuCyeGlMmwX25 Oyc+PTArnModf7QnLgka b2mqv8kpjLq6ApCpJIHj dqPuwLzcSGM0y9Oq Qp60I49tSWmvQDMbWEEw UDXfYFEpgYjxyq6xwO9d Ii8+JSFfeDV9qGW2lZ8k IyUbJbB6VWalI294 DkDynWRvOfpdp6gos0zn iZy2OkSzQUOppiGyeZwy JSZ0p3JxVx22T7WogGqs b2AoTyc1ld26fZKi u6L8gVH4D3VgXOQmpalx eXYowWpbYE6wVNOauunm WADupB0aDIWtZ1h0UjXj AoN5ZQfpZ3XssqL4 VOMouTQuOMCmiHGOmU4a lpixq4nfhcufYkSaEZGs DHb3ENk4QKNzwOkqTgNl DGF7VrX6DLW3oXMb hZ3wyWzpixsuzJ7hCzg+ LEg1u2cefLEzGT6myQJ9 TE48TK32oEIrp3Z1kER4 T1JwIXQihqpwrdzf kHI8SXTaYDIiqE93Wz7u yFgxZi8oSXGqZWK1KCKh jWZpM7NeiU6mSeRxSNIr RWRqB7ZcmPQiHXsg Y238NBisReJ6XKTlkiEo U1JsUSKwxJaqMqL6h9Y5 Vk5CRZ03HI03BN73jTEu w1H0eJQ1R7UqGLAk unylgskgfKN8UVIvYQFy lZ44Ws9xeVafWp2kPFGj ENH3EPDlpOZrL6OldD6y MiVjESSaWNEiV2Zb kNIdAWtnK056XWewIbG3 UMUzsrFpF2TwTNIssWsy LkQ6j7Q0Wq1SXw55HA92 GX12mHRvr7P3gAX7 P3RiVAKkkwsoordtwUS5 BRJqRWZtyA68Zl0cxBfg Cb9gTTHgKQJ7SCMqpRMt M7ApdR7dLzNvMGQl WELpT9WeeUHzUMtwH268 BOorIpP0GGYwbmOkS5Dp YWUkhTmmEkJ9u7R4Cg1F ZMnkpxd7D6YnHfvi dHI+WK24BQOaGL75pJWv gQRle1bjrAe5XhPjHJKq TMB6wZchDXykz9YfBUNq Q46qjCDha3B4GRGx bGx (more content not included)... [facility] Wound Care Noteon 09-16-2023 Wound Care Note [id number][facility] Records [id number] [facility] [id number] #1[facility]00[facility] Outside Records [id number] #1.00[facility] Wound Care Noteon 09-09-2023 Wound Care Note [id number][facility] 09-07-[facility]23 Coding Summary HTMLBase 64 FqsyhwjoGNu4vDf+PGhl YWQ+AR7ZSEMiB46okRPt uW7xD0NWYWuUQstjZCJP WCoIKkQflePlPP9yuGMo ZXJu IC8+CN1kTQDkUxdooIFm q7R6tTE6U17ddf5aCKjw rJV6ARXnAqVldlwmm5tf zWh3LSelRkkpWxVz OJDgnY08LJW9uU53Fc76 uZVaqRChx8lieKv2SqVt LKEmSFR9lWfhTVdgh3Yj TKDwH18mqZKdz8T4 IGNvbGxhcHNlOyBlbXB0 sO4dZZatfvyil5ijvcdu Bmh1fh59sJCtl2D9bTM8 S2CcpaK6HZWecGDb RzqrpQFAbC1ikxamz0ll htxbMeBzOZMeLJp8NPt7 AAGoqCaoFkFrKB20ZDI7 MZBssaRdA4XlUQAg hOfuMyN7t4B4Tx7GB2UT ZljeG7SEERMNKQawzKR+ LT27qe76B6LbTrbnApo7 ZHIeMJW3iNC0tE7z ERSyTXpmu9U3lKJ0S6Fh xxKrrc8hc0wnHHWhRPbp B33mgKQkp5H6TQFooUK9 CJQtcArfCsWzgJ52 Oyc+FUSnqAuhl1EqLvmj s0qwp6gvoPv6FjujOROf wxDesPlcZWE4u9MzNq4r SXLbdJY6mUX5lD6v SmYqAbN8GLdwP709AdOx xJTzMuitH54iZ5ChvBW+ WADaDfc5APYdaJdoXY5t J2PyGYWrvppguIJv kHleLL7rZXTvqxpnSHSe rH3eHBQnL4h2YlEsHcI0 FExsQ7NjLWScctzhHx38 bD6kEjOoPfL2JUhu H9DlyhC0XKEfwHPuQNzm BOE4E77rx4M9NPZcVKUw AXF8mSF6qQ0fjOqnbouk bGVmdDsgdmVydGlj BCnhKJuvI956GWTlwIqh PkNvZGluZyBEYXRlOiAg MDUvMDQvMjAyNDwvdGQ+ ZQYpOAJ9eXzrZMFf rSAgKTzsSc6jyJvrrCpi AU7nDMEtrukxKCIvvQ2s DPRcpAOxtBikAV6jVPMq uemue117QkPqCJR5 CEZquULzJ6RkcR4yIuRk ETHhKRXcI2OfgZEaGNyr F643PTpmFiM9JRKgzgKu P2GrZYPteXuaMtF7 a6B3Cs9Yp4UaxdwaP5Qx uVAiAyZvXmwdJRv7H8Jz PjwvdHI+KV22DDAyKM35 BMx0YRB3xWgfSBoi AENbP9HxrT3eJzPfOBMe ZGRkOyc+PHRhYmxlIHdp ZHRoPScxMDAlJyBzdHls GB1mCm8nUSPdVTPb oTfctGMrUeInk7fvHIJk KXraJP0mkSjpX3IdzIG5 PMWsj6n8Rt57Q08vR6Gy dXA+OUBqfSR1aMX9 yJ3jCrHeCwN0RIzrG015 XwIjdPPyRrgln0dsr0aw aZo0NoI7FJDbflCciTzh FWL0n9IrLm34E09q IHdpZHRoPSIxNSUiIHZh xKvktn1xtC6zIr1+PGNv ePK7rSW8oJ8jBeGqLyC2 AQihK402ZyKibSTj Glgpw1uai5oidTi5BvEj KUNsxhFswHyxDSD4u3Dy Sr38J8VkiKrxf6LdWea2 ym66pSFso6C8oMX7 D9VvHSMamgevuSNwsQdb FC9jZHFoovtgMIYgaR6c SKTaN4i1XtHgNuE5DNni C3DtthI4ESTghSPu QZBlfPVHeM5kznrbm0qm cyhvAdInGHTmCXj1NCr2 WYHkyLgrWbWoHCG8OwB4 SBN4cUMvyX9pvLig lhrurO2zVjt+GHL0cRSz gDEDUL9wGvhfmKZ+PHRk DEB5fYwfWBwePSAnsI2o RBEqP3r0BjKwDiX2 OKveJ9KhxxX4HWGlpCSj MDTvoELLcH3oajtnd7as oyjjXsHjOUNlBBb8DHn1 LWFsaWduOiBsZWZ0 VgG5MHU1vZHojJ2wpFfm cgcwlU8hOuq+QmlydGgg RKP5RIh6O5AtHbx5TTIi gOeuTW9qbVFnBRrq Cb8xbWpddIbyWF0sRCYb xqsho264BxThe4gbBGXa pODyWTdfLRB4W83ef8T4 LYVhEWSvMSW7oZF3 nJ0qqBroyyynvDQavIsp kgMidHbgTYhfJRhtV702 HSNkdCxhCdLdPFi0H5Kh Ymg6GHKwjEfiJZ9d mAQxUKwpJf2lqYdqdXxd PS0iWDDoaggcj234NwJw u5tqYTHbbEEhNIrvUSZ3 B89ah5B1UCZvYZUr PRE2iFZ0zF3fsNvyuqju bGVmdDsgdmVydGljYWwt YVwtY097SEIkvHefPvRt cLi5L3VcPpw6GKEg kCncRS5nsYFqWJcvTn6i zKhspGcrFB8zERVvjodj k188XoFoy9viICPlqLKu QWdwNDQ9X77zm5L2 MOGdDHUrYES1eDO6tY2z bGlnbjogbGVmdDsgdmVy iLjrWYhiNWkfE673DSHz cDsnPlBhdGllbnQg OOozKCh3E4GaOssncHX+ OA67HAXiHW64dTJxdAHy f6isyBt9WbLyZOAhFQP2 eDomKUccn3IeZQYu O03opWBhb7M4NAJikPai tXMtKyXbvHW8fN1gLKnb ogpgt4nnublgOtnmc6bh se72oT68K51kUBwq ZHRoPSIzMCUiIHZhbGln jy2usY4qUl4+PGNvbCB3 xKH8sU5tIOUsYfE7HAlo J700XzVyoPBbTkrb j4nfj3uokRk3GyS3VIJh cbVigDaoPEM5l9ZrSi00 K28zVMaqXAGqBKSrWHIt ZNHjxYcbnc5lkH2g Ii8+PQOgdSY5xQA4pK4y DuDnPlT2PLktV596QmNi dEJlDhziT87aJ8LyuTU+ UWXlGjz1COOdfKso NJ5rbUZpPDqkFn4cAVK1 BqOeIpZrKNzzU1NuQRFn ntyamfukyTB6NQPjKXXd cI31Og0qaIbcMHYu nMAOoV8havhyb9aymdrr FsXnBHXiDLo1GCy2PNVw pUsrWjEaECI5IaO0QCI8 hUXarR0xlMnjovnx nU6qW8NiAMFzoztxYh12 fX7zZsIbLzZ3WSpeBqk+ Q9XYUxidSF1SK5vJGKof SzwvdGQ+PHRkIHN0 xOlpTYhjQVQbaF6sSEPz T1t4UnJbMdB3HDjwO0Uz KSGoukhfEl01fM0qEcRy UlF6MCirD2TuujL1 ODVtqYCcMCwyIIT3N53i t8M2XNKrFWWrIDV6qKG0 mV1gqEdxjooznIObjKks dmVydGljYWwtYWxp H224YJRemLmgRqUpFeU1 BbI2JcP4T5RvHad8BUGu sDboPA2ubDReVQxlHk6y hLdnkUvyFR4mKAFe aqcpYECxcQ5mLUWrxVWi pWdvUK0dCIEglbfqu039 FlFhTEX4WSWovCDgJ0Kt tD5mVdOsTOCnLHSq G1XojQOcJOtsG578JUpf ItS9SFUkgjKwV9DbRPTm uReqVcY4c5S4Mi93GJGB ZWFyczwvdGQ+PHRk XBH1eQsgAFanLYFruH3k WONtE2b1WeWoFrH3YUju V3RxEEElxgljCa98iB7i DwLqJuO7TXgaR2Na bmS2AUTizEJjHOdiEWD4 E93fg2B8NUZsBMLaHQI2 vFC9zZ1yvXcqqevjyPBx dDsgdmVydGljYWwt LLfuV756BADrwDgySi9L LSC0M7CjPwb1AZBarIfv CQ7shXUrMZioMt5weEnz qXrqOD8aWABqcozw EVDsvB7hZEHczJKkkOqe XZ3mTQKpuosdh412ZyCt LRF2NUAmmZEtW3BhpL1v SkElAXRfOGMqU9Uu lHDiQQfjR883UUjrPpG5 OVWppfFaD1XsMRNfeJgr UiT6p8O7Qi1BLZmunFI+ RX55iu10X2LxZfvy Zyj7VHCeFQF2oHF7tK9n FQRvNLzse0I8iPJ0F1Fr vuLqrc9ao2ezLOFrSDin T56qjZZbm0Z6OPSc tZS7LFShfXhbYdLenN37 Oyc+NMVkgGunn6TmLpck s4sqo2qojKg2QhFvFIHj nqWziIbsDZW9h7Kh Dn29A47aJPiwJBFfEOYm JWFbMLAdpEcpet9cgG9n Ii8+IGTopHI2jRJ3aU8f CzZmYbP6EVcuK994 NvOxaRMpSyuvm6cax5ke fKx3WfMpDURaplEsbRog LYE7x9UgMz46K6TgnPxu m0GdAct9ef11wMEp f2F7zMF5X8CmCHEbazly cQGpyQsqLV7wRIGxijbw UDTlbT3iJUMiP6r1LiLz MdY3VJcdN5OwofW3 LXWswRQjKVCvcBSNkJ0t qtfbe4eeuwpvFrGjSZTc MXt5HZt9MHMvkIchClAm THY9SyJ4IKV2oHHd aP3ujWtutqgksJ7cDml+ WFq8h7kbkFCzNL9onTE6 GS66LC13zOLbg0W4wGB6 K4QuUOUfnsuzyhox vKB7JCTcYFUegY33Ch2a sQaxGv3sFSPlOCN5PJTa cMYjE8EvjV8sHhUuQTIs ZVIlE5FbzVMdXGcg G959GJonFsC1IZOrhzPj Z0KfFRRgdWsoJxY1c0W9 Hj7YTL77BU03RX08wWBc y5K1cQY0Y5JvKXYy bnpmkwgmnXS5PCVpJUVc gH73Ld5coScdSy4oPZTr BOI9SKMyeNNjL9WpxJ6j QrReIUNaPBDhG6Wm dDQjYMkyO429PZfkLzB6 ZKTstlXuH1QvWCLeaHhx GqG6p6G3Lz1HKz40VM41 PB71rODii0Z3rQI4 V8PsFJKtttnwpqbayPP2 GXXaEYVlkZ29Fs5svTth Sa9qOSKjYIS5ROOqkBKs U3CcvA2eOiDfBTPk PNRfJ6OmoHHzZIjwF804 TTtaNdP5EIKxagOaK6Ev GHJqhKikWoU4c5Y1Qr9K QDznybd3E9VaLidd dHI+GN14FPPtOQ20nYHk nQHhc9ucdLv6CwUdOJBj TJF8pTrcKSzwq0PzPFIl B16dqVIys3D5VQDq bGx (more content not included)... [facility] Coding Summaryon 09-03-2023 Coding Summary HTMLBase 64 KcxqiowqWMq2zWp+PGhl YWQ+PU1DTRAxA87tsPZy vC6gL7ZLUFkBRjvyKIXP OKsWEkHfcqIqFF0xeIRq ZXJu IC8+FY6hAYXlLwvgkVMh w7Q5qGX9N69pkj1yAIly bUO3LLFqQzZzbhald3wv lZp5PJlbHmsgByGi TCLlfJ42COE8fC72Nl46 kXLclEOjf1tgjAa2ZhMg CFWmKKE1dRvrDWfpu8Qp AXYnF86buRVcf4U6 IGNvbGxhcHNlOyBlbXB0 zM7zAMmokxrnu7hunqtx Wfq0ic77gOUep4A6eOP9 Q0ZuzvR5IGQnnIZt VmgejDFLkM7hyscqy8zt yizlDcQgMMTeEPb8DRf9 DQNzsJhoWzZeVL13JHM1 XUUnepCcC0KeABLt bCvyZyX2e8T4Ip7KD3NS UndxQ0NDDIEIQRjntDE+ XB06vd53G1DcFzppPam0 JSWxJGV8uIU0sC0p JPMtMMeug5W4uGC8D2Tt vsUadq0ww5ajQBEbLDpt L77idMVfp9I7HNHknPH0 HQEjsFbzPaMkhN49 Oyc+MVOcmJzws4OgKyzf a5ael7ondTh6KqweECBk apIdnInlAFP0r7ViQs0v PQXfpKI5rSL1aK2n VvWeGgA1JXigO080MyLr vZPoBatmF27fG9QyvUC+ RBMgZql2CMGwtFgaHH8f L7RvFBGnsdhdhGUg uIzkXY3yKVDoafhqXWDr bZ7xELEgZ7z1AwUeAlS8 WJizF0ZsPWXtannhWm42 eZ4hMlAtFiI1OHhz O0KuncY7GDIznWYxYOoe RKL9H63aw6N0ETWfRXOe HAL5bQI4uP2adCodqcbr bGVmdDsgdmVydGlj NPqfGCvdF250MVJqsEkp PkNvZGluZyBEYXRlOiAg MDQvMzAvMjAyNDwvdGQ+ NRHuFJL2cFdzPYBu hDSsFYgmTm3isNrclLsn DY7jOZFmauoiBCCtgD7c YLIuhBCowRneBB4jSXCl zhepo668TxYvORP7 QFLihOMnP3PvqD1rXoEi QWGrFOPvP1OriJPtMEyq F711YUlrSoN6UCPfccPv X5TvOKVcbPtdCiL7 l8T6Yh9Eu5MfcnzwY3Ai iBUhIiXaKzmyTUz6U5Qh PjwvdHI+WL12TZQkQD49 LFl4CJF1jAphQFvd ZZKwX7DbpW8pMeJxTFAs ZGRkOyc+PHRhYmxlIHdp ZHRoPScxMDAlJyBzdHls RK1nEb9zXAQsZUOc nMcikDEiMzIeg6ufOKMe OSzwZI9kqYgoW2RdlPR8 BPCkw9f5Ip38G10mP2Ov dXA+SGIszWS7dPC0 rL2vDxByVtZ9TUkeH994 FfHhfHLhAdmyb4uei2eb zSu7CvP6SRJghiPwtTph AZM5y9AvSe74B23g IHdpZHRoPSIxNSUiIHZh tFeebo5obU2aXw7+PGNv eXE5cPV1gZ9uJqCqVgM4 KAgwL242PxEywZUy Ctggx4jwq1rhaTi1GaWh MHPqrrCvdNecJVL1e8Rc Ml47I3JzmTxqo6WcRvs4 rx06pYSnd0D5sRD4 W4UfDPWmugctfZQvyLqn EX1hIXVxdhwnBSVcfB7f QDCyL5t4FoEkAlA9HZch N5IjszN5EHRupKBq PSWicPGGcY6ddkfwz4lr jxfxBaBgNIZxHHz8IUt2 PWCdaWckDhOsLNC7YrR7 BSQ6mBLgwW6ovPff xzvktW8eQxk+TYK8hRZu jPMTFC8zNaxceXF+PHRk VKZ1tIasFTmvKRKxqS5w SIToU6s4MtMrZcW5 YXzaH0BndyP2KBXmpICh DJTmdNSKkN1nluqub1le tjkkNfEnOHWqOIt5MVd5 LWFsaWduOiBsZWZ0 NyA6SMD2eWLxmC2izMud yhzcgS6xJxu+QmlydGgg PHY0ORc6C9BxVqk6JMSs zQtqPT7mfFXsJDkj Yn9wtVsamUwcYL5kMOFe wrxjk942GpEei9ffNITq vAJzQAfdEMW6N31fw5S4 AVEzQWUeWBC6sZF5 xC2gqNudkylvmYFnbMdu brIjjBwqMAurBVcdP379 STFryGptVyYoUIr0D5Ko Drw5BODqgXhpSX7j rZHaGWlxYq8qeTrwqUnh FK9nCLDnenjbc814QzMq o2gyZFZevVLzRSaaPWQ2 B91vc2P5KQIfLNPx PMZ7dHC4bH4cvAbdoeyf bGVmdDsgdmVydGljYWwt YTkmD076WXCnwWdpUyKp hBw7B3YnEpk8TNBt rVfiVX7dySZdSCuhHj4u aBefoMuuTO9yIHPptrcn n965YwYmm3lcWFKvkEKg AMumING2P54zd9D8 PMYsNXWsZKI4iVE7bR9b bGlnbjogbGVmdDsgdmVy hHdqHMetEKzoH848LHAc cDsnPlBhdGllbnQg DGzhTQa3Z7LrZjdewSF+ FS39SFHvIT78tJRqqHCv h3qqjRm3EcXgKBYoUNU2 dDuxEFzzs2MeGUFa W79wfTDbd2P3ULAgpEiq nTMbIvRdpTD1lU6kCKzu rjvpa2sjauypLnthn7qd hx99lP53I77cWMbm ZHRoPSIzMCUiIHZhbGln uw9yqG3rCk0+PGNvbCB3 tHM8qA3aJRHqJqY3ZGel N375BjLulPCtTloq h3qik5zdkIm7AxG9CHFz yzDyoCrqGDZ1c0JdAi10 E55bWUleYGHwOIFlWUCc BVFdkZgwfr2wgD2o Ii8+SWHrrQC4sAY7rS7a OlCwLbJ1ZQhyO421JdYx vPIeBjhbH32yS2FkdBI+ ROPpIdu5NGLtuBbm CK1pqGShOVkwMp5qOBZ4 BtSuHbWyBKlzX6AjCJGo knndkvxrbRL1UPRtLOZz pM08Mm9wpAhxYDIs sQDPkF5yhkwwx4iegfeb BzEzAYFwQTy2VPa9EXVi cLcjCtFqXGJ2JsZ2YWW8 jRApxN8ewUvowyxf aZ6cZ8IfYFJkexwvAr31 lV5dOePdFgH5QTppDgr+ J6EVSixzXO1EY7eBQEgj SzwvdGQ+PHRkIHN0 sHhpFOdqVEMzsE4xHIAi C0e7CsQuGcJ6ANfuU4Ea RCAxzebwUr40eP4hOrNs WcL8GGfvA3KgxjT6 CFFrqDRjIFrsFJB3V07r e9V1XQLbLNLgTTZ0xYJ5 vZ0yqCpowyzqtDSdxCcg dmVydGljYWwtYWxp W023RLButTexNbJmWeF7 VrO3CkK6C6TpFki6FRSv nLpsWB8jdRPxBDpsKr1l tBahgBjrVQ5dWXNy oohuPOLegC4jMXBjeMLb bRrtAZ5wCNRpoelqd646 FfZmHXK8TCHjqMVfT4Ba gP9kJzAqLAOyZNIf F1KulPDqEPsfH302EFxe JkP5DXHavvBlN6PrXPOm dRacTsB0v6K0Wg15LEOD ZWFyczwvdGQ+PHRk VNJ0lUjkTGzcFKVmeD8z JJFaO9o7LjJhSnR9KFnk M5JmXIYqatozKg97gE2i PfSnIvD5TTjgB8Vs zfB7RJSiiHQpBRghEYO2 T71lr3U3PLDfDMSgVMV5 gQZ0hD5pqXmxgxtfbWKd dDsgdmVydGljYWwt RAejG305WQTeeVqoSr0F RSB3S5MaIpe1QSQasIvk IR5rwWHfKIspWf4pjLbh hQpxIV0hUBIfwaoz VIRdyE8uOFJjnWEtkNtg QR7hCVIozqaud760SxEq ADH9LFNibCZrU2OskK6g VzDbSBGmJOVvK0Ei fGZaTGdiJ505OMxaLgF2 VMFjwzXiK0SwEQJewLiv FdF7s0C8Bh1SSLfebEO+ BA41rv10A3JxYqyw Kiv8GGTdSWS7rFY7cO2u PGRtKYvvw6S9mOR7T6Aa ofCqzx8up4xtJFIqRNrb U05ekCLhk5K7IOAi uNX7HCYbnFwjQlNnxK83 Oyc+EOQihMdlj2OeFreb e3osr6swxAh0SzKcVTJz puUxnDryWHN4o4Vm Me73T40lVCtqGQDhIDUr UCUsVHRluCyocr7szM8h Ii8+DCNoyIU9tFM2hS4c NxBdRcN6PLwuN763 MvHowJDyNrkdw0jnv8oc oGz0FoMxSVNptlZjnMnd DIC8z2WdVn15X0WqjBca z6HdHwt3nd80sGRc u8Q2wCN9Y6LyDSYwbaxs aQOglFzdSF5gINJoeezj BSQigZ3fEGPwM9f1ChVm RzK0SOzlV7PmvgN6 RIHcaOQlOFHakGBCwD3r bmoyl8xradrlNfYuZNVb QNe1WYd7QENcuRusRmSx RBY6JhX1HCU2vGHj xU1fsFfjqbhliP5uCtz+ GYo7r7eraDDxCB3gmQJ0 OM87PJ23bEGqw8R5oVI4 O9WaNFYavcytozll oBG2XTCoTJKobE88Hi2x tRduDr4fNIFjEUR0CGKa hNPlX9OphD4oJvYrRGPe BNWzI4CcnQXnSGei O907BPygHeN9PMVhqzWi S7WmOBFnrEetTtJ2w8I5 Fw9VJF85DH96GK51bHDh v2K2zJE4U4IfGUNz hsbjtuteoTB9CIPkHPOc cW14Bh3pfKiiGb3kSVSy QIK9PCAkgBPaA6HbtT2l YrXnZVPuSTUpJ1Sa kHPxMPqqK713CCbiTtM8 UDOthxDmG3FnBQYzzIav WqF7c7F9If9QVy52QC58 IZ44xIMec9R4uRI4 H0HnRPVtqrfjcgyddQY7 CTKnMAUxhS66Mm8raDjn Fp7sXBEpWPR0KSIgrXXb L4OpjZ2gJoWpNJMa IYZcN1BvfLXtMSvlX305 CZlgJdY3SLWqxmHoI8Ca QXNwfCqpWdW2y5B5Oi6R HTkqpjl3N3VkEkbe dHI+NL11UGYxLH75xKIm wYGtw7ekeCc6XgMqIZDu NCL7lIwqQFsjo1KhYTUk T89wkKGcc1Q9WGFk bGx (more content not included)... [facility] Wound Care Noteon 09-02-2023 Wound Care Note [id number]#1. [facility] 08-30-2023 Coding Summary HTMLBase 64 KxywcmohTBp0cJt+PGhl YWQ+VG8JHEEpC45rjBEs wN0hD7JLSCuYGlwyGJBA FDuWMwWtmqHsSJ0iiRKg ZXJu IC8+WP3hRFPqHozgpXXi m0J0mFN8R86aqd4cVKau lWA1XBNwCwBcxpddt6jt gOh2UFplTimgVwSl XKHmiO58YZD2pI66Na93 aZEwxUAxm2mqzRs3VgDj XGRyWBV3jYitORlaw2Hu KQEyC63czUPfx2J3 IGNvbGxhcHNlOyBlbXB0 uB3hIEkzqavho9tekaqr Ido5ri23wAKle6E5xRY2 H5AxoqI2AWLcgGBb NolrzTWVgE3rxilzh5tb drfkCcDkYZUmTWz1JQs2 PEOkuEfoMbSaEL54PKN5 EKZjgfRbR0NkRMXf nDgqNzZ9y1F6Yt9VS5DC WckwD6AZAENOERphpJI+ EU53cl23X0RiCmamAqb2 TLMuNCZ9sXN4nM3b MITsAOfko8U7yVV9B9Jq woHmjs0wq3nsTTGkRFvc X32kvUKga5O9MLIuyLF5 QNDxeXlvWfPurN49 Oyc+FGPozWnwg7YmVshb r4ynp1kdlAe0HlfoZOCq avAtvUtaDTX6x8BsDz7b UKDnmHO2pHH7zS6c PeGdCaL3MBvbW416HpHl hPQzJzglK11wL9GxyOQ+ AMNbLzo9WIReiCqwZS0l I4EwHZIcytllqHMy rVzoZS7pPMYlkgeyPESt xA6qTXFxI0b7OjHpLuW5 IBxdQ0CyIATnlcjaMr07 cK5pUsBwLfE9DUat B7LhrhJ8XCEwkEZwWRnh OXL7A25ma5B3RDQfJGIg JMN4aLK8uO8ptWxrtrcc bGVmdDsgdmVydGlj BDocZBcwU242JBQevPki PkNvZGluZyBEYXRlOiAg MDQvMjYvMjAyNDwvdGQ+ WFRgUNC9mHuoLPBm lQUlFFlwVu0bwItqcAwn FO3vWGHbxxqiBVHtmT4i YXFndWLasGuaTN3mSSJm ehveb043IuJmDXP0 QVXvvITaO8OmpY4nFoGc XTPxZDKwZ0GraVVbIBnd H349GDtiHeZ2VXAhumIf J8PiFTLxvKypUzM9 l8Y5Yh3Qq7AakklnT5Mo gLIcKwCaWoubFYg8K8Bo PjwvdHI+KG97WGLsUW03 WJg3BQI1eUfmECdx UEWeZ5ZpoM1sPwLhXBFq ZGRkOyc+PHRhYmxlIHdp ZHRoPScxMDAlJyBzdHls AY3gQd4mSWBlNMSg wUvdsQWyWaBux4kgFLBy HHtlWN0mkZhaC1FsiYD0 VLFus5i8Et07I90tC4Is dXA+HJIubCH8dIU3 pY3hNvEzIzS5UEdyH513 WkFlhZRqMbfrq3ajm7au kDe7SpM1GDYszqEjyGmw XYM8b5SyCw50G05h IHdpZHRoPSIxNSUiIHZh wJylbk5fgG9uXh5+PGNv vZQ7fKX9vT6hAhCvHjF3 AKpeF408MlIhxMPv Sltia8pgf0azlDq5CfHo LOMohjNhjPjmRIU5i5Hq Lq31E3FixPvti4FwQfl0 na21oFOfs0X6lMT3 J7UcTUUffjrbwUHvjRhj CA2uHMKwgrvwOXSgkL2y AHVpM8w9TvUpPpX7GEsb A0PlpqB5TQHuaIVs UWFedAZIoL1ogmixt3zu zsmvKvBpJMDpZDl2LCz5 XOVfqOnmIiEmFJK9EjV1 TEV8cGRntM4cxZvd nlpvkO8lWwa+DEK6vZIv uDIUIJ9zKijngMK+PHRk TNX1lHmzANqgKAZkmL1o VQRnD8z7AgWpIzT0 QXncW4ZumcV2UIHjfBKp FJTpjVQEfN6vsoykx3kz ipkmGqIiEPOrDZw7CNb1 LWFsaWduOiBsZWZ0 QvJ8HUJ5dFIogF3omNtl yayykW6wWkh+QmlydGgg GKE8KBe1Z3TcBkd6RIBm lMklHW9xtDWuNWui Gi7vqIicaRtoZP2tRHBf eqjzx147YiYeo5nnEOBm dXAmXWgfWNB6C37fv3W7 KUUxJPIpGQU8jPT1 bB6aaVwqhabwoVZzvBsg xrHglOcyBTchCRxhY049 HMIvhIvzItLfHTm2B2Yn Dov5FMNgcDgjBT5h iQWoCKoxAf9vsWhyjScn SG5wFWCsjfchh718RiMn o0emALKssUOqKYbsDCW0 H05cv8U3YQCvMEWf APJ9sKY1fP9plVzntsok bGVmdDsgdmVydGljYWwt AMevQ652GDKioLkgTxAs zCr9Q4VhEvp8RGSr vXgrJB2gjHBlYZxpXg2k lAbqaZueQC7iZJTqebap l900CiXsy6alMVRizXTs GTpbLCJ5I28od6S1 GESiMMGuSCU1qOQ8jV6y bGlnbjogbGVmdDsgdmVy rLxeTSacXFmyC428EQOe cDsnPlBhdGllbnQg VBoqKZe4N3QkFxpncAR+ SP80JNCpFX37pMHesNHo v3aqnEg2TdEkUALvGIX0 bGeyBVwqr5MlQXYm D11uqXBij1Y0CUYygLup mIAfYgDhvPJ6xM0eYUuh ymniw3lurwaqEfgth6as nw02mQ72J53iAVbw ZHRoPSIzMCUiIHZhbGln qn1moL1rUz1+PGNvbCB3 dCN2qW2aRTBuZlB8DOpb J082YoUuhNElDgtj r6ojg4uhlLi0PcH0EHJm hzJpdTzsMEQ6u6XxMr07 D16nGRtaZIXcCJWsORPm GSBgvHgofg4bnW0s Ii8+OMPblZH9yMY8uP6a QjDnTjR8HOycF668VyDp hLWwPmcvL08fJ0DxmJK+ BWEhWly6RHGezSxd LQ5miFPcLShfDn5nIAJ5 FxPyDkCoPArbN0VqTINl cdfreeypvBU6ROMiWHYg vI90Ln4oyGvsABNh yQYLvL8ezwuhz5oyaqqs YoElYLWcDIb9RBt8PLUt pTrvUjNbSLA3DjE2ZIX5 rTPvaM9fnNshjzbd dS7mO9SaIXPizhjdNx29 uB0oWbGuYcH8WVypLsn+ Z3HFJfalEQ4UI1mWPOzv SzwvdGQ+PHRkIHN0 rRhfJBkgKCXxtA9yGENq B3d5YlPiMjF7XVdgL3Rx EPSyuklvCh78lL4sTqUt CkA6NBawT2KbcxI7 WHGnvMInNPagORK3P06n t1M5VVXcNAAhVIR1tDR8 bK8snNxxxmunvZYpfAuw dmVydGljYWwtYWxp V343YXClcRifAyIrTiP4 YzO4GiO2M4JiWut2YRLf rMtiJP5exEFxAEwsSs6x gLdbcTtdUV0jJFOb vscnYRMuhY6bMNZfcMRg pBpnVQ4yNAPdxvxfw412 XgTbKKU1DPBpzSZxV2Mi mB9zHsSmPLHmMUDz A4SdsURxMQkxM661YFex NgI5XQHxlgGkZ3BsXEHj aAjsTtQ9k8E9Rb49GIRO ZWFyczwvdGQ+PHRk YMU9dNftLOgnJBOpaN6t QAAyS1i9UpJuPzH4NUhz W6TzGLHwiqxyLm30lZ4g QvZzOnZ3UYwgW8Hw wvU0UVDojEJkXFxiTNO6 Y28xy1K7OFQaVXOrGWT5 oOY8aV3jfEbnqnlvgSAd dDsgdmVydGljYWwt HQjhO801JHTiyPesHk2O PMM4Z7XcLzo7IBJutXbi OC6pwLPeDEaxYy9xsJno wLrrCR2tOJYsdfwy GJCdnS0hJGTcxFAseEia JO1qUYEcmtxmo887DsQx KIP0RPXhfWOtK3NugJ2v FeOhJYDoBCFuM9Az eEAsCZqsB763GJpeFzA2 CAVqesSqM7WkTJVrdUbt EdO2u0J1Ht4IDOefsSE+ SP71uk65K8ClCpaf Gax8SWJnRXH8mPX2lB2m GXFfFAcgy1D4gIQ3X4Vg ibLulu7pd4xmKTRhQGib U23biCNvx5F9QCRy gSA5IJDljBwhVkXzpP91 Oyc+CFEyoQdsh2HqWljf d4kis8cbyPq2OaBiBCAx zsBlnXfdWDJ6c5Qh Hy22J53tHYwqJCCrEQYh KYMpHJQgeZdeht8bxP3n Ii8+TCYzuDW6aQY2gT9c EuGtXqJ9KAorU237 ZmKcdMKdYzufp7qjr0bd rKo9HeHaIYXyvtVwwTgf GKI2n8JdTy43Z8HfuRrp i1IjYek7bk79kNJd b7W5wRG2Z0DuKPSlzval cXBktSfzKU1nEMOjoedk ARTlfM6tDTXhJ9x4NnYm JdB5BYodB0IznsI1 PNDubJIwOQZtlUOUjP6o wemne9gcfycjNrBnXJLs SYj2HOp4ZSKwyJgeArFc HCT1LrI9DSR4jACn dW6dtRmzrvjymC9ySdo+ OTl2t7zmrHTmYA2laAB4 GD33TP08bSZdr5A5vIE1 W9FpKICgocikxrdg vSG4YPVaFSYjtL15Gu1g hRzjLd2pEXEgEYM1KMCc dDNaK4WzzQ1zUrFyBHZd GEStW5LjpCMsUZkw A984QYuaNeI9RLEoagKc Y8LqXRNpzYreEhZ8e7V7 Er0RSY87DH27BL84fJPc v3I8xVE6V8GtNVIi kyreqanxbOF0TEPyVFHs iY12Xg7snOtrQy0kVKPa PDN5MXTrrZRhF7KvjV8o UvNkYREtAHOmS5Qr sMRgANbcK658UIqgEuL1 FMMuhyVfF4QmSTMiiSyx BjH8f6Q3Pk6XTc59NI16 MN17wKVcb4U0vHZ0 S3EzRGOghnkiqjyplLT6 JPLxTYYhxI38Ej1muVnr Sp6lUYXyEIT4LCToaSRv W2NuoB7gIoRkXQZg AQZeK5LyaLOaXMllH715 BZpvUaL8HVBkneBjZ0Yz JCUyiCbnNpT8a7K8Jh3L AMbwtjj7M7JiBnvg dHI+TE08OKFlHL07zRIc tDHti5jpkCs7DtPuXTBa CWE4gIhqUBdpv7LcPGTr V50hcDCln0S9OPKb bGx (more content not included)... [facility] Coding Summary HTMLBase 64 BwjxxgnzVJg0bPx+PGhl YWQ+YB5SCSNrF06qxLIu pZ9sG8UCYGcQHnaiYRJP ECqGMvZheuAvMO2szPUm ZXJu IC8+XX7pGMUdJnpfvHOd i5M5eSP8V65kzo2bZQgs mWH6TEMfPyFiyjtfi3ru xBg7HVomAxkqPeJs DIAvdJ81MRF3fG59Re65 oVCquCUww7bwpTz9WuHb PJKtFUB4tMaiDAyrg7Uk ECOiH64fbFFyx9V1 IGNvbGxhcHNlOyBlbXB0 nE7lUSbpddlxw7vshzrh Ovf6gi72pDNlu8X1cKM7 G4DggmO0TUKcaINl CcbkjLRTkK0wazdyy2ks kfpzIlJuHSHeLKm9WXm7 FXUbxReaVgAyHU26HRK3 OOHbvnUyO1GqHRVe fLqsOcD9w7T2Lk2EH1JJ UoilK9WLZAWFCBjxpFN+ SV97es48D3QaZackUeg2 SQFmKQR2mMW7sF6q NVNfYMmmk4J1wVV5E9Fc djBkhg5wt5azDMIiEKyf J67neEKtk7R6HXTxqFQ0 ISOlbQfsZcArjG70 Oyc+YRZfnWpax7QaWcmm n5whd9foiTk3WnkfPFKt cdIkdKpzLKJ9y6RdLe1b PTRftTG4aKM5lI1a NkHaZxJ8KDsuT842SvKk nYVhTmqyV88lY6IwsMD+ XLRkCbm4CMSgjShzFN4l T5FyGJAqswiwfVUr pOkmSV4cSJSqewgpVSAm hD7vRACnU2n7DeRfSfX6 UNmqR3KtCNHpyjebEv44 lI9uLxVcGkV5EPzn Y8VznkB9ZGJqvRRlXExs VVI3R63xy1Y8CMGxWERn SSM2sVA0qU9ryNwqujlo bGVmdDsgdmVydGlj YFnkQArjP658DYKofRas PkNvZGluZyBEYXRlOiAg MDQvMjYvMjAyNDwvdGQ+ RREeUNW8kVffWRJq vMNgIEywEs1gsHoudMkj JQ1hMGWllnvhJIRgoN4p BKYlvXWcjNvjNW6lURYf yugjd147CzBbAON1 DYRmqCSoJ0EvpE8mHnTq ZADxOPJoO7AstYGgNVzk Z660UKcoAiV9RQGzpnHg R3FiJSUdnIwwSxW4 u9A8Qk7Vm0BdyfbeZ1Kx hTUrDaCmEyzkWNo7V2Jk PjwvdHI+AH59JTLoZC86 LXl7JOI6fMldIPzq FXXsF4ExjH6jHwOeZZDb ZGRkOyc+PHRhYmxlIHdp ZHRoPScxMDAlJyBzdHls IF1uBs1lUNVsDPPo aSkroJFrKjVnl6tbOCVc DPdgVD2diNflU6OiwKE4 PAIob2f9Zj07R39lJ6Wn dXA+TNXmzDG9bCY2 rG2fOjUfZfC6CKhxF586 WgRoxYLdJqehr2lmy0za iCl8WkG8FVAghcJhpNyw BRE8w9VjSu50W88h IHdpZHRoPSIxNSUiIHZh qTiqrk3gaF5lJy4+PGNv hBQ0iIG0uB8hEzFfItQ7 CWqaP475GuNblGEl Qawpi0egp5efdUw1ClAv GEMzgsKeqWvfYHB6x2Hy Cz27B1BtwYcke6FuFoi2 bh63tLZnh1X4cSK1 P6UyCTEoubydpWMqoEwf CT7gJOPhuuurOLQzqV9c BGFhX5t0OhPdTiA7GSpk C6HysuV6JDYzgYBq NGCrqQFOkC1jwykyt6gh qcpdSvFhFVVqFIj3EFw3 VPZuwZihHqAvIIL2RaU0 DXA2vLCkaI0zmAqn mzlxoK1uFcs+SMY5mIWh lPABKL6gDkxoiXI+PHRk DWD2sDaoKPimHZApxN7b FHWyR1l7VvSqUrA3 OZnzG9LyudU9RRPccLUw LROapZOOrN1ozaodr0mo htfnNkDmPDDpFLh7QFc0 LWFsaWduOiBsZWZ0 EeM5NLV0kEGgyN2czGen hgiawV1yKan+QmlydGgg FYK7HTv9W2NuSyv0JHDs uEudMZ5jaRViYNdi Ur2uyVutmLatWX3rYDSe ddjeg173UdTiu3vaJKMa dSOdOMrbSEF8P72zt3Q8 VITrEFBaVVL1uMM2 vO6qyPqtrpqgzUNdvZyr osQjyGyuDBliIXyoC319 NPIwwFerPoSaCKm3E2Ur Kuu2PAHtnTusIK3t tLTnKKkyVk6coZvnzHki YN5iGDZigjxaz646JzZu t8swPZSuuRSuDFxxVMY1 I38dp7R9YPZsRYKw SCS5jIE6aC0ihTqghbvn bGVmdDsgdmVydGljYWwt YDlxV611EYSqwLdyBcQy nNh0A9VeCzx5ODVg nUohZO5lpOYjACevVt9e rJbdlUnjEL2rBTXnxukm i256QuTtf8xwIONajRAo BJpaUBF6G63kh1A2 NRFxMLKmXHA2xAT9sG8v bGlnbjogbGVmdDsgdmVy sUdcYPegNCibF712AXKl cDsnPlBhdGllbnQg HUnnNYk1E4EzEscmqCM+ CN35KITaPZ63uYRehORz m7zfqBz0KfDjOBYbZHP3 mXmzUCmdk0TqZLPk V46ajQUgm6D6PXAnhAcp yEAeFvXarNM2zD2zBVaz bxmdx5slmfmkJzlzq7if rv95iD40X68oRLef ZHRoPSIzMCUiIHZhbGln eh5leD8gCc3+PGNvbCB3 fCX2mM4hHWAiAdZ9HXfc T732UxQfaOFyGjhy w0utw2ntfKw3BlZ2BEEl iuIezOzmWSQ0v0OwVb83 S39kXImsIDXhBUMnMAWw PXCxiJhvgc7dlD8f Ii8+RXTfnMS6pUQ6dJ5w UuUbCbA4EOcvQ287TmLt dLMcYwnlD32uF5YvlMF+ MIFsSxs9VHDadEwq WF5yjNGqZLaaUy6eHHM6 DqSyNcKxDGeyK7JtGTWd xtxcjtyhqUA1KOLdHLWr jZ42Ph2skIirPUSs zPFBiO7zopwls9jdkxgq XvJaDPDuOHu7BHj2QMOs nJyiDuLiGTD7QwY9QBY7 dJYkrD1fnGjvtvyu xM9aN9WtXFIbbihcKu67 cA6qUqTrXkS0FQntRtu+ X6JERwzbZS0GR8xSDNlp SzwvdGQ+PHRkIHN0 rJdzLMdiFSUqgA3uTTKq S3q8LtEnTrN2KUqyH6Nl UGSfanxwUz98kV0fSvHd HjM3JQzuP9OdshP0 VDNxbYIoGCcgNGF0E05e p8F0TAObGJJyRQP6tQC1 lR0xdNxtzijfyAIovEdl dmVydGljYWwtYWxp L868OHSjiAbdNaJgAnP8 HpU1IvY0O6DvTlk1UWKz eVkwBH7efUVfVGmbSb8t fPxzqGspOR8mHKAz qsoyMUYzkB2eAOXmnVJy dQjvTF0dQZPurceyb481 DzYrLZT3BASneAOnQ2Nt kX6qBmJjLULgWJMz S6KzrKOqZPraC486YUty OnK2RHZokwMxZ4ZeLENg xNqeSuH4v6M2Sf20GEGI ZWFyczwvdGQ+PHRk YKJ4kVgqZTmfSTGokC1m XQVbC5k8TjKaVvU3VQif T4FmIBMexwnxMf35sI1m GlOkGtS5NVfeA8Xs tgI3ALKzjNZwVRpfWIM9 G33wm7N1VEEhWGWyDCT2 bIF3uY8kjKbsvsxbzKNt dDsgdmVydGljYWwt UBpyL872JQLngSqqZm8W PRK7N7PiFxx9FZVerYll OU2igNLlYOdrUn0ywTes eWvgBC2wBIYqsfnw XMVgfZ5hXPOrfEWacKsg UT3jMLJixbdof802EoGf IZX2WFUwhAAsW8ChfQ2b CcUmPZWnYCObQ2Zd jDXlJSrjD479LTehUdD2 RFRcueAbU3FmRRWcyOun CiU1t0N9Ds4ISPezfIE+ DW93un82S2PgXpmp Khp8CSNaVED3uOQ9rA3a FEEgITmyk6A8vLC0Q5Xp scNukj3me5gmKOQnQThx I15daQLgq2R6FIUk iGR6THWreBvzEjPueF96 Oyc+XXYobSecc3ZyExky i4kku7hdrYr7FgCaBMIs diStlWpqLPN7c1Ec Sb30M84kXLgpSBArWVCw QAPiFSQtvWyqcr5zfT2o Ii8+KGDisYB9eCT3wA8d VmEgOzQ3LSgdF830 ZiAtrCJtWmqok0znr6am lOp9GxYtPCNjfvQkgIxm CYG3n8BlFz34C6YalQgu i9LoYrw1dz12uICr c8R7wQY6V1ViWLYmacqw yBRweXtjJR8wIZPuvquk NIKbgV7qPSAaD3c3IzYi HlL4ERqpG0XyljG5 PFEmfFXaWHGpoRDCbJ2i lkkny3ukklzwQpWqYDGm RTe0EXe2PIAedHzaGnOx SRB1ZnY7NHD1aPTl pL7bnMirukogsP0fBmg+ YYf7o8lmwQNnUK9tzKF6 BC33WI81yAIoe8W9yIK1 M9JoPREgdvumhaqy lXN9YEPsTFKlkN41Od9b wAisOz6oVIFpTKR7NABn hQLtM2NkwI1iLsJsGIBz GRLxI7QhpCAdJIlt Y557DSgkAmX9WZApdsDo H4QhYGWqkRxjIjW2h1A3 Jr7CDO19FF96TR63xSFc a5X1jYL4O7GdOMVp gpaaxmretJC3OCEoKHMn iR23Vz7cpDkwXn1eLNAx QZE8CXGjmLUoK9MuiM2x YiCwUYTyMBPrF0Qn qGWbOYxzU944NOkjJmJ7 VFCxgtHhZ9OaHOZtiGus WjR2n8A7We5UWn21KM83 JM36cUFiw9I4qOS3 F2OxVTHcqstjlkvklQP6 CPNeXRUtwB07Yp0yiLfh Lw7vZIBkSPX7SSKvdVCf B2LnrG0jUcKfOUIl TDEhG7UqmKLzKRnzB381 TFquRfT7RMFtaqVvC3Ql HUNssRvrMuW8p2H8Jb6I QGereuc6X8WlWzoc dHI+TX57SDZgDP24fAEh uZUdl3knkZf3OiCiSKIc BLJ3oXdeRAsfs4MoBZAd Z63tcNQsp1X3NDBq bGx (more content not included)... [facility] Wound Care Noteon 08-26-2023 Wound Care Note [id number]#1. 00OTGTIFF [facility] Coding Summaryon 08-23-2023 Coding Summary HTMLBase 64 UvzoaiewVWj1tIy+PGhl YWQ+SJ5ZBDPpH40gcVPp rT1vX8OXSIvXLzoiAEWF GKtOUnJspxRfLT3dtNYk ZXJu IC8+XZ4gLUXnEmftgRBb e2O4vZI5A92hpd7wZCze nIF5SKIiIgCstcfpz2om cSo8FQthHuzwSnMj MCTcsL11MUI4tG34Wu58 hFDwzUIlb3yvfTx9LjDi INEmAYK2rZusGDvad7Ty ZOHbQ72vuUIks7H8 IGNvbGxhcHNlOyBlbXB0 sK3eIEeedwsbf8nbyrvx Ixw7ra96dNTer5V3sET4 K7LrsdR9BQTiaIVn HakxlHSPhJ5hwhmbc8if rrufPxYkKKRgFKa7SCu4 XJNrgOisHxLkIJ60WYD7 VSHqwmMaU9UfNIBd lVycBnP9f1F0Sd0BX2TN KfvyU6NQUPKUHJmwnQW+ ZT04rm96U1MtUruwQcu7 AZXoYFJ5tOA7pR6r IVJjIQvmm4E3wEL7Z3Qf ncUwcm3tw5jjGZAlWIhf S34iiBXfa8C8PLNgxXL1 JBWgoMmjScXlaL31 Oyc+KUGhpKjmh4FsQnht o1ieg5mxjOb6LgwmBCRc qqWyuTwfZZK0g8WwKi2r CLXdzGI5oSK9pZ5d EfHyLxE8CNwrK837NoLa eFQrIjiuD78sB5MtaEO+ YWEwXel8PXYhpMcrWG1k D5WlEVXvgfsssSNx rSbqZO4mZVQgoomgPIDy eC5zYLYsS8b6InHyTqK8 PSvuD9XbZEMwslgfNn12 sR4tYtWhCfT6INms Y2QfoaK9GEFelPZzZQxz FYO5P70vy6L3OZYqMJKb DJH5yVI2rX3lnVsgaekm bGVmdDsgdmVydGlj TLmtRWfjF031KXDxaIyn PkNvZGluZyBEYXRlOiAg MDQvMTkvMjAyNDwvdGQ+ RBIpYCY9yTdxZASb oMXtGRdaQh9meUwolEbl SF2iLBGgrxpmXMXbqC4x JHEsuZNkbOyfYV9gVQUj pdvai479IpVjVOO3 OFYdrWQyQ8HluQ5nJoQd VTAzSPVcK7CviHUvSJek V332ZXaeOqV0JKNzmjCm V5FvNFCopLszUcC9 h6T5Qu6Lz7NpisieB8Dc gYZfRoNmHbnfQUl2U5Am PjwvdHI+YZ59QQQaOK40 UVv1YTL2rXqjVUva NULhA9ZdgA7hXyAzSEYj ZGRkOyc+PHRhYmxlIHdp ZHRoPScxMDAlJyBzdHls PB9yJc4wBHBkFONq sMceiKMqSxMqp1shADIq BJyiGG9hsSkaZ4IlhDF8 YYNfw9u3Hm52S89qN1Jm dXA+MXFpkPG6iNM0 tJ5pQiKqBhH1ONnaY428 GuUzfETfXcdze4zqx8qh iFi9PrE4QLKfioZeqUrp WMF3h3XoVl07T17d IHdpZHRoPSIxNSUiIHZh cFmmvh5kbC5jTm1+PGNv xNB8mWF3mG0iKwQwChH5 CKpmV291PeJcrEZa Axpvj3cxt3essJa3ZwYc FSAehwXrvFbhWMW9h4Jl Mn63R4AqeUvit0BlHob8 pu49fNVze2N0nAL8 M1WtFCHjtjadeIJimRww RF7sOFZsnuwbEYYiaF6h PIAeQ7l9GiKtLtF3AFmd X6EjdoC7BLVzdCIn CLEvlPKQaP5issctr7vd ttuzZsKrTJCkRGj0XTh1 GDScnQahVeQmUMT4SrX4 CIT1dFBhgE2glLeo ibvwiI5vPgu+CKF9xRTl oMUOCQ3jWxpkpOR+PHRk PON8wTcrUEegYHYunT0i NVRoT7t0YoKrPiE7 RMziQ3QyjfU0FJVycMEv KBVzfGKDyD2ywisnv4gu vytsSzVmKDZuJAp5EHi9 LWFsaWduOiBsZWZ0 XcI9JUY5oUYmcD5reGcv wztpgY6lCma+QmlydGgg WWG2YTh9P4MqCoh3UDJu cTmnBQ7ocCXbTJiz Zr6kbVcqhLurJY4wWGAf czzfe763CnHrs3xuEIAq iAAkAAktEPR5H71jk8N2 VMXrNJDpJKP9yVL3 cL8spMngilcuqYZsuNpu pyZzhUjfTGslEJisB545 TYSuhYfjDyGyEKx7X4Yi Ssj3IRKgdYmuVT2z yHYfSKklNl0jdNqeoXwt TA2qHCIbwgpjs291UcPt o0gdPFPjoDUxOOkoJGZ4 V85ai4U2VLCxEHSj SAV9oOI8zV1rzDcvegdb bGVmdDsgdmVydGljYWwt MDhaP108DEExjHgbHfBo qZg6N2VwWbc5QLWg kKiyPR2paWZhDPctAl5s zXqldAplVY6xBLAmhdfm l739FoXwu2puZQTsfXCi EAmwNYQ5F67sc4O4 SFUvWOWxKIW1gMD0fF9h bGlnbjogbGVmdDsgdmVy uLydVUcfMIibX559WVCc cDsnPlBhdGllbnQg XRnyNBy4S2WiDzesdIU+ RK51NHUaKY10wBSanNKd c2rymKu0KyKkZLJcZBK2 wVxbAMbrx0OkULCz X56ooZDex1U7YGPifGeb gJCeNpWcnII7vZ6fVItx kcmxo3aimytgQtmld8bs gr24uD64T37nTZfa ZHRoPSIzMCUiIHZhbGln xs6rbY9zGm3+PGNvbCB3 iWL2gH8cFHZjDnJ8MBbg D159FyKmeWQtWqwn y4ecf5rxqAn3IaO4QDUz vfCsjPnoKEV7t1HcPa73 Q16sSNluPGZgEADgIOZo MMBaiKvulm8guV2b Ii8+RLGjdIN4sSH5qZ5c WxRyOkU2XLmmN582DbDf gTJiIapcJ58yA6AiiFC+ SRGnAke3KRCxxNzj KP6knKZtGPpeYk3xZNY5 YgZxUvVpXGbvP8AhJVTu qsbwdqmntOV1LXBcQXAw pP85Cy6slRyaXNHi fNHKgA0mrdwhp6acslic BeUhBFZyCAf9XLf1NHVl jXxcWjBaKWP5LnQ8OJV2 kNUaqK7ebXpluild tZ5qR2YhLOJtfttpSd27 wS3vMfTbHcW2RDllXto+ K2DPPyroPR3RH3iSDMnu SzwvdGQ+PHRkIHN0 dEqnVExwDWPqgQ7yUJSs B9e9KoVzFdU8VFdwG4Fm AMIqegzkZw21aA6cXzZd AqM5AQwcC0BuyvP0 QOSmnWNgBFfrYCG2W31u g4T4EMDsMNBfCST6zJH7 bU4qwMorpbmjlDCwbVyq dmVydGljYWwtYWxp P276ULTtqOlqLhLcHdT9 KbP0AlJ5Y2EwLuj7AJIi oTqrHE2qbQUoYSoxHa5j qRjvfSjfEW4qJAUv ocplNBHpaN9zAFQfjTUp fKjvOP2xXEAoovdle014 JmPqZGT5OGItxCPgI8Uu tT6oVkNkFDGkDUYf T1GznAUnRNnvK590JOuc TtK5BLYewsUsQ0EbWWTp vCvwDpT7o7K7Mm25TSZZ ZWFyczwvdGQ+PHRk JPZ1qJhnCNomHDGpoR9l XEAyX1i1TxUiLbK5QWck W5LyOQNowmteHk19uX2y DeShOcU2FWasS9Oa xaK8LIOgiILwSHqnYDO0 Q34af9L7PXQjKECeSER4 iOH6rH1vuZomccxmzLVv dDsgdmVydGljYWwt FFyaK991YFMzwZhqRq2D FVC4S1CsNvj3PLKbiKpc XJ6bvQTtUZyvSl5mrYkl lYmtWL4eCJInunda PODguI0kOLBgyVZheCyn AI1dKDFouswxo358UjQy SXE1TTBktKWjB3InxB0r VwEoKYMbEWEgF5Km lYCqESscP181JCvqZqV5 MCNqfkEfB0NnBNEqyEra ArA0j2U4Cp4PIDtstUK+ CZ93px38F1PePhvb Ejo0NMQyATY1eXZ5fO6d NNAkZIjvk2A7nNM9J8Ii rqGoxi6et9bjAVPxQWie S91ygLVgo3R9YHBe oPV7QFYsuOsgXmNnkK76 Oyc+RXHbrZslx3FxRunq n5faf9veoJd2JoGvPYMu rvDjwMimPXU0o4Gm Ud64F56nKIciZXFiWESs CEBxNOPosDrfii9daR9m Ii8+KLXceRQ5kNB6zQ8x GaIgSyL9QKdrI628 NjJqjMCkZdcoo4src1tx pDd7KmFhRRFbtzTcbHeq RTF3b9HdWm79N1AmgFxr l1DwIhm8ql47mWPh r1K5hVQ2D1GgMUNrkwpc hGZviHbuSU2fCFRbdwlv LKXgcH7mCAOcR5m3WxLs TcC8TTkpW7MaobC6 QCNodZPqWVZzbVNHjI2b jzjhq9sedgyuFbMrVFJr IIw3TOz2GJEevQiaJiUu JZD6HgH5BSH9oIOq zG2wbOjfrmastF6lOjk+ SXr6b9qrvEJgWT4vfZK9 GL04JM58aPKxl4Q8jCK1 O0JmVBKvmpygzxsg aIC1SNSdYTDrdP07Qa2r vLzjTs1jZVZpJZL5YDAz sLChE5NgrD9bZxPzNSGw PQErZ9JroRWyXRxj X565FVjsVaJ7MVLvuhVx I6NkOKYwbVfgQfE9u8I2 Ta4PJR75HS82AF76sNOo l3F2kRS8I2TbDVIu xvnivdslhSO4KGTdNGAc yV59Qh3upBsjZg9cOZSp TFB5BHNexXSpD6UveL6l YcYlVKVfJCBwU7Vx aDWpFTjdC660ANerQpL1 VJQupiBpC3JcEUBvgVkn NqH3h9A8Mh1QZz31EV20 RQ39sXKdm6H4lCI1 P1AfFAFfmumwihwvpKM8 VKVdJRObkP93Mg6xyUwc Ce0dKCPkQTC9EJWokKIl P8CblO6zBiCxVPSq PYNkY6VqdMJpUZthL433 NLapTdA1LFOzglEjU6Xz WSDipThnDyU9b6M0Je6H JYkgpgh4K9JmFaut dHI+LN79GSRsVM49wBNm wJPly6jhkFe1SeZwCUVt EME5rBvgBFdtc8ZoLMRz J17ypIRfd4F5JHUg bGx (more content not included)... [facility] Wound Care Noteon 08-19-2023 Wound Care Note [id number]#1. 00OTGTIFF [facility] Coding Summaryon 08-17-2023 Coding Summary HTMLBase 64 UrzzyydiSSq2iJa+PGhl YWQ+BF1IDQBmM02guPHd eW8oZ2CJLZdRXxuoWQNJ ZJmYZvLutmKhQU5nyTCh ZXJu IC8+XF8fRVAfHczcnMOh h0Y8rGZ2D11ljj4jLRsj vTB8AONzLnCznlwol8qz bRf5GPcdSioePoJq ZGSyuC69KFQ8pD28Jx90 gVKvqHIpp1qloSs8AaIf GAAqIRW5tPkqWPrre7Ee LQFaT52weJCku5U8 IGNvbGxhcHNlOyBlbXB0 dN4vWDntrcfuu6nfmcga Rsh9th42lJXus1Z4eAI6 U9HojsC8DGJzoEUk CjifbFXFnC9nopzeg8ap wrknPoPsZRJvUJy2CZu8 ZVIhgRlyPcKlNY53YOI6 COAhomKsZ1VgRSZn wAihJrZ5i3U3Xf9QZ6WV YmxoY3CXYROAEIdsjHO+ TM40io32G0LfZiegRtc8 RSXnKFO3zVB2rU0e MNSjPOzxd1W8kTI9S2Bx yiSqsj7co9rwMXUtSQrw U11klOVdp5V0YPBygRB5 OIGamYgeMvCptY62 Oyc+LTBirPuea0AbXyto v1ppp7xfeIm5QrwrRAMr oeTpgBwwLNM4k0YfLh7o CXQswFV5tIV0aF7k UyGfQjY4ADsnF070UiTh uGLbHtaaE63pB6SwbLC+ AVJhZtq2YJKphRvqUS1u W0EpIFUrsqxpyALt lSnqSC6gVELdxgslWCMq uT8yLVOwD4i1DyRpYpS8 KBkrZ8SiNWPrmzdxDu22 mQ8tWqNbOaM0THlj R8IuuxQ4PNCcrDGuNQok UDN8I26eg4B4YBYpKECz KUD6tXD2nB6toJzqwush bGVmdDsgdmVydGlj LYzdJSqnO511BWEgbUey PkNvZGluZyBEYXRlOiAg MDQvMTMvMjAyNDwvdGQ+ CNJkSBT1zUesBYSr tDHyRMxsHh2rpTynbVhj CF0fVODpaiizRABrsO4f DKZlzQSwpVxnCL4hPTPx hvoxd022NsPxLCC5 GWOtmIEjI6WzwT5aQcKd STGkMUIxJ9XzzWJnNXtu H011JMnjOpI3CYOkstPy B1UaTXEgfPwzDkO0 u4S0Zq9Nd5SxdckaJ7Ty jOYkNmJeLehqCWs5N1Fd PjwvdHI+JP86OBBuLD18 HMd4FFN6kUjsIEhr GZNvV8KhkL3hMfIgQJDq ZGRkOyc+PHRhYmxlIHdp ZHRoPScxMDAlJyBzdHls EH7yKl1uLAXhRVEg hYsqmZXnSaCaz3nlMNYi GBviXI2moKesF4XrmZD1 NVUke4s5Le25V80fD8Wb dXA+TEJszQH5mBI7 vB6kTnEeJoN0PXhgG225 YwIdoSBuCrjli2nbl6bj cJt4JeI4QHSlhoJrvQkq EVD6b9SsNm71H49f IHdpZHRoPSIxNSUiIHZh xHrriz1mkO9oEu3+PGNv rYE1oHL1bR4dRkCgBpE0 JFccE594PgJghJIi Dkwpl2zxe0qiuFc6YzHa ASWoxiEhqYxeABU0g9Wu Uk15R6IhmNgjh0ApRfz1 jv96wWPzy0S3vBD0 F0EnLKDbumqnhVOalCah FF6uBEZaoaiaSTOoqV7k ENMiE3u0LpRhKyR7IPdn C9AcjfH6XSGmuONy ABZpwOTPrW2zrvzqn7ky znoaKgSaWPFdWPp2PNx1 YDRlkQfjJkJmPDD6KaY6 NMA6pQUpuL8boNeb vetfdI5iWek+BPJ8dZGk rZQFBI1cRgzzxBM+PHRk AHB9uIceXNuqGOJtlS7e PCZtC8l5KoJuQzH0 XTmwZ3NvnoS3FTAfbCBp NYZbzIAYhI0swdkqm1gv uheoQvAuMGOuOCg0FIo8 LWFsaWduOiBsZWZ0 InW4MCY5oTCtsR4qhYpn fynamG7sCvk+QmlydGgg BQO6YMb6D6WxXth5ZMXk bVakYR9vwAMdQTze Vd7awRoulZyjPB0xNKJw xjbcc352UnYri6mcKSGm rQOrXJxsYIP6R58wn8D9 VFGoTKHwMJJ7cNO3 xP9kfVpimvmsbPGqmHfe jnPawWvpIHgoILwjI402 GPUtxGrzKqIvJNc5E9Wd Aio5CAWokAxfPW2s fDTsTBxvMg9zmSuczWcl RV4lATKtwcsxp521MmWy h4ctUPAlsMNqXQlqNOI7 W03vg8D0JXGpNBUb HBI0cZU9uJ6uvIpopmsr bGVmdDsgdmVydGljYWwt ZQqsX646RMZflBzdFoLq zNz3X9PtOct9WGXw tNglKJ6izMUqAOnlDb1o iRcerLynTG9fMUOqzlkv y864GlRbs4haAMZgtKNe AVzqILS6F48op8T1 EKYoYVWqHUP3oXC0kR8t bGlnbjogbGVmdDsgdmVy sRwnJVnfLChdB225HVCu cDsnPlBhdGllbnQg ECdcEPo0G0HyFzdarEB+ KN37TYGkKZ62zAAwnCHh a0nnbLw2AaFbHCRnTVK4 jDgbWPnzz5CfPGDc V56flUJhb0E2KSMjmAun zGGzAoTbvKS3rZ1cIDuf hdvxm7acirowYcdnf6wl xm63xJ99U47uHCsh ZHRoPSIzMCUiIHZhbGln go6igQ3eTb4+PGNvbCB3 rAX0aB4oBCTbPdR5EVcz W546AlBxxOClCkiv e3pfm4oczXf8YgU9SVVo gxUxaHrcUAV8w4VvKt44 B34sITidUIZzRCHdNUVi XFXrxLmaiu8wcK6c Ii8+RRGfvGW2yZW5zW2a TwKcJoF4CQnoW250EpIg nYFcCyvdG55qE3WeeWH+ DOVgZqi6NVRvrPot TV3gnXKpWTfpHb6uATM2 RhYjWmJcMLedC6UfYBRv oibdvriggVM2OIKzMJRe bE03Tx2iwQohFNPf rVSNkW6puftaa8viaedr DuXjTEXsLVw6RSk4IBFq lFvqXxZgNRV5EvZ3TCC5 bPLibB5wzZxtojsr lR9rZ6YqDVKmmitoIa53 iU9pAuWsHvA4KQqcOxp+ A2ENFddwAW6GR5oKLBfo SzwvdGQ+PHRkIHN0 mFowEAneDMLsoA9rZMPb V4n9DbTsMiP7KOuoY2Ak KMSrxmblDv21iS4oMpCh UdI0EImfF7JfklI9 YZHokSBvNXqoGCT9M52y t5C4AVMnGVNcYGL2wEY2 oO1swRyfslqzqBVktAgp dmVydGljYWwtYWxp J175KFVdrTghJyImDgF4 DdZ8NyC7L5AxWjt3CZNz fCbzIL1zoOSbKLxlHg1d cQyusZkrXB6jWGQe ogkbUZAoyH0yWFYruMUa xYdkZQ4kSHQgxiprs647 KvZhWGE8HHUiqPZgW2Rr lN2rTxKwCOAzXGTx O2MegHZjLJckE991JScc MzH9RAAlcbIwQ0WrVPLs gXayVyJ4s9J4Nr73ZMZN ZWFyczwvdGQ+PHRk NMS2aGbhLJxdDKMnuW3l EDZaR3j6VzHvMvH3KNib O5MnVLLfgkexXe49aK0v FfBqKzR2RUsaN7Ur eoE3PIGgdNMoKWdyRMC4 M86kp5J9WYMfCKXpLAA2 bJN3zD4sxLhambbqqEZy dDsgdmVydGljYWwt HIbiP793HQJmeDnhFh3Q SFJ0E5HvCkv4ETAhmTsf RT0paBLcCGfoXz8xfBhg oCgiJV8nFRRxnocd XBLnzU6gWRTmhLRkqPlx MS3vGBCsqdjiy610TeNf BMF3GRNfgHNxJ3RxoE3q CeEhNNRvQHRbV3Ux pZDdINvnH032SYrqRyM5 CJZdeiDnJ4UtJTIqhXmk NcW1y1B9Qh7YCVsmkDS+ AF65db36I2PsJkbp Aln4TIEfQIL7nJW5dX3u OAGzPYuyq3F7wTU2I2Oi qtZqrr0nm5raKJMzPEce J11nsPCxn0O1VTFl cXZ4UBYrjJzaZoLkhT83 Oyc+WRSesCzpf9ScOnfy w1wpu6qazRq3FrDrBUJm cnKffQmcHLI0b6Gw Ak97A94fGXrjWHLdODNc XXLpBNMmaYzyvz8vuT2y Ii8+ZRMcpXR9aAP4iI2p SgEbDbZ7CQauP091 BjDvdMLpHpwcj0vnx0vx zVt6SbVjUKSmxhMxxKpu DWS5y1KhSu90Q7SuwAlj h9QmUbk6ze30oEFy v2K6cOD2P6GvITSjuicr jSIoxNleWJ4jWCOqyojl ICJqnJ0aWKLyD1b1EqAp DfE3HFyfO9NbrkK7 UGDjsQWmBFSclMIUmN4r xmrxk2inrrcnBpGrTCRr MBt5RYs8HXAniKfaYkJa ICS4LcT3BQZ4sEZu pR3otVgzryeibP3dMac+ HKy6f0zhdGHjSZ1leKB7 XH20IC21yQPvq5N4bEC8 I3IqAQNzpwlrbzqe sHB9TORhHRFseY11Pm1z wTzaWj2lNRAgRLF0KVBm yCXqG7EoeZ1bLxUfLYWm KBKoQ8WuiCKzCGkm Q404YNzrChV4YRPmgyMp V9XgAMMuvGwfHsD2v2W2 Xg5YGX22JB64QS95bEVb e7E8hJG0R2UxOWAk lborxlwohTH7HKUtPJJr yX46Pb6wiJknMq5jXHNj QRY1CNMenNBhF2ZtaH6t FbBpODKuPRRoR4Nd uVFzTTmuS804CGoaDiF4 MEJaaoGuT5JiOSVavSls JuB9x2F9Uc2LXk36YT33 MM85hAIcf0X8aUM6 R9MeOLRuztoafonkdTZ4 UNXjKQQqqB80Ay3orAsh Wc7pNZVdPBA6DVKaeYTp X0MohU2kZpGnTDMz MZXsA3PxiUGcSCnnH645 PMvaHgU0MUPjynLjQ6Pb OFNwqVsgNvN2b1K7Tp5X WUdxaqh5G5ObWwjw dHI+PQ47FCOxHY88kLLw vZXeo7susSl9GnRmRIQk NWK6dNprIXjxd3AtJYUb T17lqBOcc4O3UJLb bGx (more content not included)... [facility] Coding Summary HTMLBase 64 KuuidaxtKXx1hUi+PGhl YWQ+LX5EDZQfE19sqXAi cU9pV2WTRUuWBxikOLKF OXmVQtFisaDiDS0uuBWz ZXJu IC8+DV8vSQHjQmocxPSr a2V5mMY9H33jtd4oKWca tJW6PIMgXtIddolgc0uc zZf6BYmsUgedJnHi NREeaK11OAL8mM80Ca90 iECcgCVxz7isiMe8FsEc DRDyNKX4gVtzLVfmy4Fw RCReP74svUMje1J0 IGNvbGxhcHNlOyBlbXB0 mF6jTUcmrmaca2zwqajl Vcy1iw83uKZmd1R2uJR0 Q5LzwgU0MCRohGRn IjnxiUZYhV0vgkdwy5he xyyiJxKtVFIbPGv7QUr9 TYMycAapTkUrZT34HJW2 YAIrxxKxH9JtACWu eFidMvP6q2V3Xw9UX3UX DvuuJ1RFMZSDGNlyjDH+ IA97mp05P7AtOyuvOwn5 UOEhQEQ0xOZ7oA8a UHJuFNakr5Q5sJF4U8Ad wlJeki7na2hfYHJbMCdp F20djKQuf8T5HTZnbJD8 TDHbhVfdZtZnsI40 Oyc+HPOxfJfhz6SdUmlb b9yvq2rzxBq0BbsxKVEi qvJjiXasTBT3a4SxBm7d BEAtnIF0dOR3qO1s YiGpMqJ2CBzkC410UuGn qZJbIfsrR13eO3XpvDI+ QBFkRep2WUHgsFbpNB6c P0WfWWIoywbpbRAy uYtlQJ8uXGTwgmydGJKd yZ3mQKUyS9c8HsTzTxP8 AXpfQ7IjZDBnpblbVv74 hP8gClHqMyG5MWjx F8AimbN0XYEywUNjGFzf DKP3T86ml1E0MKYyNNMg OMV6oYX0iC5zaEwpnkkp bGVmdDsgdmVydGlj DLruBWfiD288JXDsoVzh PkNvZGluZyBEYXRlOiAg MDQvMTMvMjAyNDwvdGQ+ GTVxMGB8uNrhJBAc rVJlCEnnVf7srXdjqVtn RI6oJVDodbfqRPRsnF3l VHNfjBTytTsjLS3tDOMr psycu370PoFnUML2 KSObtJWoI7KuiF1aCuXk PSSgYJTxB2BxeKKwJYam B508HVyzRwI6GUBxqaMy D4BhQTWpiDdmTkU0 t6Z5Be5Xu2XnawosE8Kz iLGrPoVlRfawTAr0Z9Xk PjwvdHI+PW09XKJyCO62 OCi4NZS6vQwpLYcf BENjP9YrnB5xMbSpGJTr ZGRkOyc+PHRhYmxlIHdp ZHRoPScxMDAlJyBzdHls IW5cUz4zJCFlRFXd nEkfxKLpVkNhd8iuMLQx NSmpAG9qaNgfC1BsmAN9 IUTvd4f4Ri62H32sF9Cd dXA+KJUobPW0tYM7 nG9xCxKaOwK3GNoyU969 MsTagKKwDwocl3dwt3lk nIr9AcE4CTFiyxBzbKrh SKS4e9RoOf95D05l IHdpZHRoPSIxNSUiIHZh lXsaxm2ayW4wSz2+PGNv dTV3lLK2kP4hQwIlLvG1 FXctG557XoDbdSDx Dvkqi9wxk0awqOx2DaUr RAQxpeDdlLgpQYB5p6Yw Az34I9PlbDzct8NbZnh1 sx71rVZnu7Q4cND6 B5LbDXKxzstdrWPoqLai FZ8lFXWlhvhmDYWmtO8u RXFuK7n5EiZlJhR4REzr C4YxaeN0MAOtpNKg MDTmeVPAjZ2tjqbaj1ws vtmqCiRxVHSnZGu8CEl4 WWYudSapRtCuFKG9SqL6 PQE0wIVzzS0vsFzd nilsiX9rUwq+KJE7tLJo qYBDHT8mYhdjzQQ+PHRk JGC3cHooLQwaMDSzkA3e URBgP1v2QmFdDlN2 ZTbzA5MudmS1TUMazFTw ZJXlxITTjO2wxabow9du drizQnYjUAKsSTl4IJs6 LWFsaWduOiBsZWZ0 AkR2XKE7fWWhhN2efXtq lpamaU7tMtc+QmlydGgg AEZ7TSb5J1HoGza1ZVUp qOnsAW3juRDqSKrr Co3vuAhkzEwvXP3zVHDn oikne271PmAku1lvCLPw aHNdJVbdVAC4V06qi7Y6 BRIcGBGvKJC2iTA9 eW5naMasqqokhZRxuRnm plSxeVrdWBhzQVmdK669 LKBkhZmaMzKqEJu0M5Cd Wpi2SQAosGsbGM7f vACoQWqvZu1uzWdgtFzy WK6rEVMjkisqh618XhXj h3doYBEqpDWiZUpaJUH2 Z29mu6G3DVCfSCWf MTR0tES0bB5tnZupuczz bGVmdDsgdmVydGljYWwt ZEsqF278RBYiwYfpUgLz aWe2O9HaLah6YTTs dQtyVA3btQCbRIkkGx2u aTxblRknTI1dOUGdwgvi j794MvUgh0uhSDMpnYLm TNqbHZK8M02gm9S8 HYKdLPTcZBD1hRH6xF9t bGlnbjogbGVmdDsgdmVy mFcnXNokVJjcO492BBOn cDsnPlBhdGllbnQg KLvmVWt1O0JcUaescPO+ PR88MYRpGT94vOEswXRe y0xslPa4MdWoCDQsKYV4 iViiLVzsj1KfVKCc N07xoJLns9A2QEZmiHzv gXPnOcVlpHW7hR0eBJkd thpib8ywqjxjJvtoh7ck rf20xH43B79nGYql ZHRoPSIzMCUiIHZhbGln zq9lbB6oBx3+PGNvbCB3 gPB4cF0wYERfHjH9ITaf R139HwBtxSStXflh o9lpd4eptWr8IvX6OGMr wiQauYeeWNX0h9GeQc56 D64rORpgCEKkEJCjCHDn BQOotBfabs4ptF1h Ii8+GWCabNR6kRT8dE3o FcQhOyC5ORsuV387CnLx tQEaQodsO15lD8WkePW+ NMNaVju0ASVcaEjn PR0avBQwZPzeUa6pDEB4 LnZeQpAqMFjbP4ZbMSYj sgjmhrzcnOH3KXHkXLXo sX83Rn4xpZriAKDa eAYAuG8jywrej2jalkjk PtPjDWXvEDr8VJz1SORp fRlhLyLbQMB4OfU2NQP0 eZLduW9kfOgmdnwf bC7iI2SoDNBjauskDh55 rW1hCxLdTvO4XMomTsz+ W3UVWlnsMC4CL6pNCUcz SzwvdGQ+PHRkIHN0 mJfrUTxpORNgmU8cOYXk K3c6NaOzKpD4WDtcL4Nd RUTjymmvRv59dM0uPpZp FcU9NHtoK1AolwX0 YYTcxUMjTPsjVSO7H43k j7Q4SMQdQOUrZKR6bBX8 zV1arFpgsoveiVWmySup dmVydGljYWwtYWxp C181GKQrxYcoDqTqEbC6 GtA2CaX7U4LwFzz0LPJf uUrsWR9osRUxUMquBm2k tLugfHbkSA8mTXXj yeopNWXgvD6bRGZksQHf fRrhOK9vVHQchhcyl735 DuPwBPK6ZWMnzTWoS9Bs cJ1qBbMyDXYuWSPw W3XkzZNxNMqsY848TViz RkI4NSBrfuQfS4SkDSCz gUdoSaH2x2T8Jr69SGYO ZWFyczwvdGQ+PHRk AYJ3eQbvVAatPZVwgC8q MYIgR7w3VoNlPrU7RZwf J4EwVVAhqtkvPz01xH8j DtQtScG4JIpbA2Od dwQ1HJEzyVSyPVucIJR4 Z28lz6H5VQXmQBCkMWK0 xSM5xA7mhYynfvryeWAf dDsgdmVydGljYWwt IDcgR448WSZmoPlnRm3H CYF8T5RhZhu3YAAapRis QP8gbOAgQZqdQt7ucLxq wXkpHD5tBUEtqhnn XCCyfS8lXGBoyVLlxUan JT3hUKNpptyit253HsRj OVR1AGXcmDQjO7BunV2t IdMjJQIiQVVnJ0Ke oTFeIUbeF165FHzbIyR0 SBIodmMwQ3TdMUWnsVfc YdU4l5T4Iv0FVJwkiLB+ MN05pk31N2QwOnns Swv0SCAfJVB0iUU2kJ0y LUPnFYrxe9Z9bCC7T4Tz uuKjly1qp6fyBXJuFEka Z48yeUEit3T0TFMv oUW0MXKgmQvwKpPnyY56 Oyc+TPOwqFpdt0SiRujd s9ykm7guyLr6UeEdWDOs bjMytWngXGX2u3Gl Wv71I08wUNlrQLQiQNLx FDWfOPUfwLxzir4mzW9g Ii8+IOLjbRV5nAF8uR6k JdToSuX3XPfzA560 OwFhsCSyLkjiu5abe1yf yHj9WlBnMYUmlmLcpFls FHT0e9IbJz68I3EdlEyv k5AmUgz2ot38hDAe i9C2uGM2O5JxUACgimby xWMzjHmeGO2aWMAazucw XONnrG3gCDLbR2q6XfUe NmR5ZMcjC8LazrG7 JUJqyCFgIPXqxSWVfG7e tlluf3zntuxtFcYdKECs TVy7MRi0OGAilChgTjZx KSG5JpU7NLL4dLYi qB5yoIzcijnxmJ2oFyp+ DTr4m6jsrDNvPK3qlNQ0 OT35EI32mPGsl6O4zWD0 X5BiKXVefajqbacv pRW1NFHpCHPgvF53Qv9a uUpgUo3jPCRzZLZ4HLCp lBQeI7QyhO3iRxLzKXSz WBJoD3CwpFMoXGma W250OQftFjU0DCHlkjHm C0XpXRLarGibXxN5l8B8 Cx3NYZ98XL64EC58jOMw b4N1oFH6C2ZlVJUm bknwtgncySC6GNZrDSMh yJ84Bt2peZuvNg4eSQGd YOT9LPDhiRIyB5QkpK1n HlLdOQCbDNSpQ9Sb vSKeVBqvJ507GZekPdZ0 GHPlluOoV8UtNEWbeRpr BrV5m6E7Zi8UUl61WM84 AS76cUKca0D6wZI8 U0QtVLRzrssapxsxaIV1 OZPzXXMknE37Gj2tsBqy Fu7nLXRdFKL7NAMzeAOv U7OsoJ6aWvZjKNMp ORDvR0IfgGSrVEzeJ144 HZkjUfQ6OZRveeBiM4Ep HBBpfRitYxP5a4V3Lv9G XQlnxtj5L1TlYtlw dHI+OY24ZYEaQT10iTNk lOGbu3ckzOb1IhDyTIGd XKX3zWamRQacs7IcNXEi D62asRZsg8R6FJLs bGx (more content not included)... [facility] Coding Summaryon 08-15-2023 Coding Summary HTMLBase 64 VadxsrbdGPi7pUd+PGhl YWQ+DH5BZRYeG23jsRNu bY0iL1CNNOpAVvzxENSY DPxWQzHghoVlBP7fcOPz ZXJu IC8+XF3dCLGuHgbxsURh y1B7xPX0Z22jfy2pYAku dTX4DYWsSqFshqhyz6ip eQh1BVybGqtbRmFo PJDnsH55RUV6hC98Mf53 vEBwsJJhr8upfSd8RoSk VTUqEIA9eLtbJZjyx5Vk YTVzC55xtEGag0T3 IGNvbGxhcHNlOyBlbXB0 hL9xEOejmrwyv6gxwlcc Gqq1cf06wOGvi7H1hTA8 N1HablF6ZAHbhIZk QmnnbBUTbW3bclesv7vq icatHaNdRQObOXf0QDz2 GMLbvHynYsTeWW10GPD7 TWHzcuVdK5HqFOBa kHjsElI1q1P9Aq4YO6DL LkmaN8AZFEWKOMfrsLK+ FQ61op96A1EjBjgoPjc9 SKXbXCY7bNA4hG9u YSQyIVois8A0hLI5N8Yj huUbkw6ln7geVTEkUXzj P68nsJDjj5I7TQIxwKT7 KFMwiYnaUcWmeZ18 Oyc+VDSiqZcjk1JjWqtm f3qua7nhpUa1NzloNFHg eaCrmHddYER8k6SrKu0x GIEnfRF4oYP6xO4c MxRwQsH5AZfbF098WvRh fYVtWgbxE93nG1TszSM+ UVHaPwb2ODJgcIfwKO1x E8IyPYIyvkaibQBo pIfrFD2bKOZlsgygPOFt iJ2kSYVcZ3v2IiJyYyC4 CUquP9AsMBLpephuVm42 dM3ySbGuIjS1RNna J4LxjaX0QCHxfZVzJQmv CEA9R87bc9D4GHGlKHIy STO8lUB3dB2siRrjtfci bGVmdDsgdmVydGlj EOhmKNwbM331LAWlmJys PkNvZGluZyBEYXRlOiAg MDQvMTEvMjAyNDwvdGQ+ YLDdNLC3eWlrXUEw zKOuKOmyPc3guBateUcv OL1mFACmwzrpEQEgwO6w MKZhiHBwpWetVJ9eMTYo eswyr845ApHxCOD7 ZPBhrDSwN6AibJ7sPjGd TNRvQNVoM6CvkDHeFNwo R017JWogUaQ0SEVjxzIe L5FwEUBrfDgzWuH5 g7B7Jb6Dy4MdfoaaN1Mr vDJpVfXxHfepRYd9H7Ss PjwvdHI+PY68MHZqSM58 SZp5PQB8sMttWXco HDHqD8NyhC9yDnVgMVQq ZGRkOyc+PHRhYmxlIHdp ZHRoPScxMDAlJyBzdHls OL9iQt0eVRSdBVQy cEbryUJkCxCxf7znWHEg JUqrSZ6lmZreM4DbgHV5 EPZor0a8Js04L17cB7Ai dXA+BZRqnTM9hRL1 jW1fGuVsXvK3KKfmT067 GpFpsEPsIcwdn3yrl6an aVw0NwE0UNPcjeTecEgl ORH8x8YpEu40M46d IHdpZHRoPSIxNSUiIHZh yRwsrb7srN8yIh8+PGNv xVK3mBB9oF6yDfWiDoA2 AGorG368IhBcmYAd Nocsg5xlm0lnuBm9HrEm CLCyyrApiBwsTMR5r4Hu Pk76D1YknDmfx8IxWug5 ad87xNDev8I5sEI8 D8XfDVRjoxbgkOAdpSaa NW3hJSGzygfhSBAxvI9u QWMoZ8w2MhLrRoC3IEtb T4JtxiV6XKQtuLIk HXVxrHEVrY7aqpfop4ve vlntLgYaXFXqULb0YDe4 JFMgbSioFpDbKBH7GfP6 SSH1wWTqqO0hcYvm vfiugN3aWzj+AWZ4lTBc jDKZQZ1uVcughSY+PHRk CCA7sJeuDKbbRXQtjE0f VCXcY9x9KmXlTwW8 SBfeQ6PgkzL7UXKhaILz RHTeoILMnS8ymqogn8qy wlssTwBmORYmEDe2LGb5 LWFsaWduOiBsZWZ0 PjG2QNJ5wXZwmC7mqDkb ekxcfT2qYis+QmlydGgg TYP2USi9P5ZaSyp1VYXj nWfoRN7rdMPjPSup Kr0atAknaJioKX4vZSVh hwqjt837GqVur5emDCAd gFSxJBmlNSD9W68iy3W9 HPRyGHHuNHR0uKL8 lA0wcAxlgcxrcMTweSll aeFolDivAMiwWClsC635 VNMigYphHnIfTKb2L3Cy Pal9PRBkmVzySH8a hOKyFBwpVb5zkRbrhLhv JH4dUQZxgmkwi411DcFv q9daYGJcyRXsHCplZGV9 W39uy1I2XMNbKRAx FND4xDO1nV9moDnrebif bGVmdDsgdmVydGljYWwt GIauT638MAUneQopXaWz hGv8X6HcPcp1CHPp vWnjYL9ydWWoJKyxSw8t lBihuOukNN4jKTEbiafk w557IrSkh8ssBNTnxNBo SFniJRF6G94fy4H6 ZGKqZKWjCHR5rZB5vM8z bGlnbjogbGVmdDsgdmVy wOpuEZwvZDreZ425BSZl cDsnPlBhdGllbnQg GDpnQBn0S8NlOjjtqIB+ RS56ZCQxKF33bROexVDk d2bieEz6FkTaLXPiQAM7 iKbvVPltb9QvELHk E65hxJUts1V3ZDQheTnf sHOfXgSqwNO7oL3nBAnw hwyvy9bdziolCiyrn3ru ec12tL05H89pOTdt ZHRoPSIzMCUiIHZhbGln bx3ehD9bYc2+PGNvbCB3 fWS0iS6fACYpDkT9KLbw C348DzDgqOPuUkaf d3tib8unfBb8HnZ8QSYf dwHzdOhmIAC8v1NrXh18 G45sSKrjPVMcSNRzJLSv FVCekFwevy8xmW2p Ii8+GYNgvCB2xEW4yL7g YiFsEnV8ALufI213QoAd iCUiUdfiT33lC4FbjOF+ RHAfZrb6EOTlwEog JD7rmAVvJWtqWl0pOOK6 IbVySjByQIsaQ7XmWGAi dvcufwstlQO8XSPgOAOy fE22Rd6xrCcqDOQh iCBTtY8tdxlkj2kyymql RqJwHHHePTg3SJd6YWOu cYmqZzLlOEK0PxO7EDV3 qBKxiY1ytJjwzuhc zO7mT2ErOBWiwayvSd21 sB7wOnUmCsB0CYbvNia+ C8MYYnrkYE6UJ7mTJPse SzwvdGQ+PHRkIHN0 yTvkNGjuLUPvlW6hNTLr D4j6MgMuHhU3ZHgmS2Vi SMNwjaxqPk51iH1uJqZx PfA8WRxvY8WwfaK4 KAHrbSPhAUftBSX9X28r g9H7CICpCLHdBEZ1yOR3 kL5ocYwbidbcgWCgsSah dmVydGljYWwtYWxp R213IUBmxQqpVmAuZaB2 OeV9LcR0N9XhSoc1FZZz jSkkAF6oxUZoTQhuWw0v fDhezRzjAT7aZMXn mwtuAQKdcC8pEHExbKFw gSjaQL4mAHFjnncrx855 IjNiKUN3QIPrgHHqL5Vb cO2jVwUcAVHkHAFq Z9TdhQIcTNfqN574RBuz IkG0YRDotgLtR5NbEGVg yWmfSnH2l8U3Ly19RPWO ZWFyczwvdGQ+PHRk IHJ9vXiuYImlSNGekT9r MAQpU6z2PuQfGqX4XDif R1VeQBYzyhsgPu34pE3m BgYiSgK6GSvuV3Ph rlB8KNYtfRLgLJptWVG0 X90te1P0HQJeLDHxUZT1 bTF5pH8mlOidwtsavVHn dDsgdmVydGljYWwt QSrlP409NSDabOppOt0T CHP8M0DzEfx9KDDvlKlz TZ5ipICpKQpaLm0frEgp zWosYJ4xOYMxqwmx TCRneN3bZQGofAJgaUxd AN8eZPOapahzd287QrLl BEU4VGBdtNBrQ0GzuP8h OkGePHPaKANhK3Nu gPMwQEfuO852MRhgZoQ1 YFYibjEoZ4GuFOBycBxv QfU7s1W5Ok5GDLgmnBC+ IC15kq52G0TjNyfy Aqn4HPCaYEO0yRG4oW4c UZJmYLawv6M5gKV1U8Vl hvGavt4kt1osUAUqMCjn Y19fyXThk1R6DYNx oZN4YMBpkCmySiStlX34 Oyc+HSFkvRete1ZaExls d6grd1nqxGd2TpCjLVBx hoYlfHrqRIY3u3Ju Hh12M80tTXgkCMYpBEBz AWKfVNOvzSxwwf1teV5f Ii8+ARNblVO0cFB7fJ5u BuDtHbB4THubK916 CaJonPPmBsmji9tlo6gr eMw3SoNkSFXxtuZzpBjw IMD2x0OjAe61D4RnzAsk c3KyUew6dg23rLFk m6W7pBW2E1CnLHYqhxwj jCLydDltFX9wKMUqswit LISzxL4jORPuI0g4GjTw PlC8IYpiA0LanmK3 MOBnzDPiKZWkmUDRlF4z guqon2ovcbxkObYdLFQq EGy6DMj4QFMexLpdGhXk TER0KeL9RMD5iOMn dO4ryHtbpiefyB7xEzu+ ERa6y4ubqVQzNY6piPH5 BM71JI03cGMbi1M5aXY9 Y0FmIQBmbxwrzuur uMT2NCWmICVfhV80Tc8v wKpnHp0jTMRhDEG9NWAy mROkW7AcqV5zQyIuNFQc DMMlQ3CvkUSmBUpy M686AZrtVbS9GBYmmuPi Y7XzDEOlcUpkQiJ7a4P9 Vj3BYQ88DG37QB32mMDi t9H3wAQ2D9SkWFRc gffhomrhyRD3ROMoRATm gK50Wi9dgTvuBr7rPKIl TMR0MGClqTCwC2NnpR6z VhYnLSGqNGOiR3Xa qVBoFVqkF039RRzuBdX7 HHPxjePjE2PhKMHmzNuy XuZ3s5N6Jk5SPm83VK54 VV30kQUeg1P6cDY7 B1LrSAJjyvrrhqyzdVH2 DFRpHKQoqA72Xn7woQoo Pb9xMFAuBZB6CDJrtQJa X4UriP5mHuFlPYIp EVFiM8PbzZBpFLtdM941 MCsfKaC4GVRbpaUlB5Sf IVMnuWiyGaN7w3H1Wr2K XFwuukk7W2PkJobr dHI+SS80DBAnNI03rZBi qQMbc6ctuOy1SsBcBSNp UHT0dKljYQoxv8VzEYHb F31ojTSkv1F7VURc bGx (more content not included)... [facility] Coding Summary HTMLBase 64 OknhdvyyUOa7tNy+PGhl YWQ+JO1JSBTkV74koCVf sS9cE2EIMWvBVdmzZGKI NTqTUeYpkdInSF7yoDZg ZXJu IC8+JF4uJDJuSvcasMHf v0U0nCE5O14lwi5uYIpe lED4IFPnHfKcqyqfb1xv iRv1MAleGvewVzRr QYClkI01PSL9tP79Hp73 aPRdsXNvj9rkxSe0ZdIt VFXqTRZ2jIfjQJfui7St PLXvT38hpZBya1W4 IGNvbGxhcHNlOyBlbXB0 uW9oJQqvijbpm7vhgkmc Him4yb80oOOgl9C9cVQ7 U2JqvxE2HVUnpEWn AfqnxVTTuQ7yudfeh6gz ozqcBkUrGLHwKYu2EEa5 KMGfgSzaKhDiQZ10CDX7 OWZvmrIyM3YyZYIk sOwaRzX8x1C6Yq7HU3QT AnvcZ7TKGFELOEchiPN+ CY72hq46G6TeWodkBoz6 NYRnQOR6xVU7mG9s OSZtGCgcz7O6tVP5V6Lu mrIwsy9or2uuRQFwGZpp F09unUYdd4Z8DSEprUH5 HJQivMojNqLylB32 Oyc+YXJutSruu1DsXkdh w7thi1oasMc6KuxbOXHn atTyrVblSZX2t4ZeTu6d RZNcbIS0yPS5bS6j KcXfTrT4EHyeJ037BiYm fXIiNvahO75jC2ZebJL+ FORqNzt4SNKynBtjYE8c A0ZgWRPssynntKGs fInpWF8jDYLkhnxmQGMw cR5mHSSpO3o1FmDoMqF7 KHspR9KeQZIryjriSr97 gS4nMiBbCsD3WOcr U2MistV9YCKcgLMwRAyb BYB2G24ip0Y3EIHbSYOx LEZ5dHU5uU0zmFruoump bGVmdDsgdmVydGlj ESirWPgwK202QFGefEfv PkNvZGluZyBEYXRlOiAg MDQvMTEvMjAyNDwvdGQ+ OQEcSYU1cNrfWBMt bSBhNTwhKo3mdApcoSmu BB1tWQXzqbpgNLQkbV0y MAYpcRKnzZitAN4vELEo sockc348DbFkSTE9 JKZdnCWbY2HahJ2qWoFm AVEaDXMwY0LwqRNxBMdf Z638DLyvAsN4OTSgyrPz L8PrXFTmuJkzDdU5 u0M5Zx4Ep0QgsbfrZ4Ru jPJsSpPpHxlvQDo8U9Ax PjwvdHI+FZ77UAMwYX27 XDp9GSO7kGruQAyq PYPfB0WvfT9eXwRvLPUy ZGRkOyc+PHRhYmxlIHdp ZHRoPScxMDAlJyBzdHls KA2iOi6gAGPgBFAd bSfzhECmMmZqy0dmBFFq XHbiLX4auNpgS4YpqAO8 WDDbt5b1Fq68O64iQ8Lx dXA+RQFyrJH3tQB4 xA4vIhEkUuU0PRehY342 NsKbsZDxHyuxj0sqf1si uCt7CtD4FIUnjuAkoOul EES9n8RoXr30P75o IHdpZHRoPSIxNSUiIHZh rObwfx3sjB2dTw7+PGNv wSD4tFW2dN8iPyKuNkK7 HCxhJ600UwPfvHOg Nclgn5yxq6kfoJe3JbYz UFNmkpWgmNalIED4h1Yo Ej11I3ObhDdrb3NcTsa4 bv39sHCbc9U2dOU5 V0SaRENfbssngKAfdWnt NX4zSFZhdtbtKHDmbF7f DVLsU5n3WzNuYjL4PJjs M5RrzaJ6VYIqdBJt JWJksXSZoT6apmitu2jb uosnTuNsPIBePAy4BTi8 WYTzlEjdArHxMRV5RyA3 HGC2uENliN7vnMou nahjiF3hKvr+ZOU3oZPp jPUVAR5xYkrucDE+PHRk FXV1wQloTShjSAFctN6q VWJiV8w2IvCwBjK6 LWznJ9IwjnN1UXLcfZYv XKDgpTHTxC0ujnirn0os bmooSdYcZSBhJFy0EYq4 LWFsaWduOiBsZWZ0 NhJ2QUH3gUZncC6aoXqs aovxpE7hImi+QmlydGgg RNJ3FIl1U7QmKjd2KDLl hZrwLI8zfDHiDGba Xa5exBmxlIdlLR0fPDKc dsjeq385MpPqb8wwAHWl aRPbTYwdPAF6Z59ry2H1 IVQoNRHkCUK8cBQ3 dK5zsDmyxpdmtIJchUfq ovYvqKvrTBmqQAgcO719 XMSaoYlcMaXzVNd0N5Tk Fgd4IMKhfCsrJJ6f mAZnIOefJs9ezYsagIhy AP4gEFQqbtffj837YqTl j0ugWEHntCAyQEdoOUZ3 R29rn7D0FKInHTQm DJL9wRR3mF5qkHqfkjhp bGVmdDsgdmVydGljYWwt ICcqW549WJXoiYdpIvNz zXa0K0OoNyf1HZIu kKrwEW5tcVIaGUycPw5l pJuxuAikKL8lJSXeqctm t115YgPlb2gqEQWtbJCn PVwaRCR3T17ws9Q1 DUUkOTRtHOC6eIF0kR7n bGlnbjogbGVmdDsgdmVy sOphPAogMLggL067ZPVx cDsnPlBhdGllbnQg LFitBAm2R6ZqAmebbVG+ FQ69GLZoCR41eMDwcMOj s9jtnTc6VyZjRBPkAXW6 qTpiJTmgb5UlQKDh L21llRMiu9O4QGJnqMeu pSVgJrJjhEM9sP3vETrd fawet1bixtilHrdny3kg eg93qU63O64zIDxe ZHRoPSIzMCUiIHZhbGln he9ndX1yLo4+PGNvbCB3 kXS9dE3fNYJnPqA1VGzn Q265MyQfeDDfUyqo b8gvr8febLh8MyF0LUUk ucLizZraFVT3f6BvBq62 M23dZLyoIEFnVNMiGMDh PLNcrJqloj0tqA9z Ii8+FWPmbNC5jDP2vD3x FwGlHmA2PGxiG549DkSf cSCrVsxnE88xA8NelJK+ YPYgQco4GEAjmBoj XH3nxDObDVncXp7bVAG1 AzJmMgZjVFsxG3RrKEAz mufzjoehuAN2NTHoAOJe uQ61Wo9bvXxfGCPd wHAXpD3aqwbxv5kudsgy PtGuZIGmJPl2UNl3PJGj rKimIlKxZIJ2NyA7RIL1 sWTouN5ecDdfqokk uX7zX5AtOBRoidbgTy60 tK9bJiMfWrW1DZzpQjr+ B1YOZlxoXB5CK4iPHRww SzwvdGQ+PHRkIHN0 uJjnAZqiQRCudE3jHXQf D1m5YlIfFbT4SSudX7Os IGZojwhnQi00dO2pEjYb BkD3WZmwM8QsapW0 YSCfrFObTCzzQSC8K66t y6K9PYOwQJKrWBA9eUN5 mS5otAmmxpgvqTOeiMgd dmVydGljYWwtYWxp C186ACSywQdtKuRySoT2 MgO6NmE7G5XnFsi5KAYd oCzoQT4dxXAyNDlcWr0n rWpieSnwWB3dCIBk jpgpNTMbhG8mLBCbpKWk vHkjQV3hKCVviohtt715 RnLsDGO0YFJtbKPtN5Cy aB8gRfQjNENdPOGg V8HlbTDeXVzfH084QKld JgV3CEQgnkBdJ1VhAESv zHzwYdL2e6E5Wd17INVB ZWFyczwvdGQ+PHRk HES4vUqyLDuwGYRyhN5q JMNaS8a9DpKtJyR9IZpd J0TwIZEjeugcCh09rV2d ZsIcUcK8TEgvZ5Ei dzJ6IFIscDWuGXdlXVL6 R29mn9Q2TLDoMCHsHUC2 xVT3mV6yaTyxizhwxICo dDsgdmVydGljYWwt LYxtQ868SYWwsMmnPa0W APT0X1KzFmm8YZGjyRli JV0psPEhXIanWy6qvRcp dJsvUO6iRQYeyvyb EQFdxF5kOUEdaDFazBwc PI4jANFxyfimk823OwAm LMC0QRDwqRFsH2BvyG2c RqOvZLGjGVVzQ1Fq wPAaCBmeJ640HEivQvX8 MOXgcmFpY3RyCTXgnPty MoV4h6Y3Xx8QLQurqHY+ DW63qk02Y3CgOgev Jjc3TCKlVTG2nSU2cK3a GHZbLConi6Y2vTT6I5Fk zcKkrt2si4gwDQXwNEew E15dcXFpi7E1TUOr xHH7OJDoaAukOcQpzV59 Oyc+BRXmvAclr4YxVeak y5myc3viyTs8VjYbGMFt gkHgbCimUOP6g5Ax Lq46Y72qTHndUTQbRJSz KQHeHKJefEwekb9swT6w Ii8+MUOngNC4rUF3vU3q DnBxYgQ0LXsfO989 JoWjqBNpZnckl3tan1bg cSw1IpUcUSGlebLhhOdt DKL1g1MxDn59Y7AcxAdk q9XyZwd1dc65eSSs j3Q9zYO0S2MfVEWwmasg sOYuvSbcXX9hQBPolquq DWSdsJ8dELDiQ0j6IyBk JyM8URhsR1TvgeT9 NNPaqDYiCUTfaCFZrW9i qibuo0cwxeuaSjNcKUAt JFn9KVc9ARRhyCigBjUj XUH8RqS5RDE8dXIq cQ7ddKzzosdyzQ6uGbf+ CQj6z8eijQEyGE6bbZM0 KV47IS83jHOzv1Q1wCZ4 E7AnPVTdstlhkvtj nEN9GFGcPCTeeN95Wc4y uHxpHs5nRNLwVUM7ISZl eGAfZ7WkiP7wVuRsQQTz SYIxW7IbgDIoIOnf M702RPogDgL5DVWensYe K3IvDIEpgEjjVvA3z5H9 Xn2PCA84UK89UY88bVAm z2R1xSC4X5CnZHNl rhywtaveaEY9SAFxOTMx tF44Be7gnQjbJf8fRUKd YGH2QQXugKCcD4MpoT8m JyEdLFOsLVYzM0Vq uRByBTglY392CAakZvU2 GLMxxjFjQ6AfVTKirNhh JpZ5v2G9Dk5LSp65ST01 FE35sVElb1A1oEY4 J1YdIBZetabfjejcxGJ1 GQXiNKCdgA37Ap7xuPqs Jc8sLOPuCGU3RZTlvDKj J5KqlL0pLlHeWEZg DWIyB4IexGCzSLrjO455 MUfbFyK5NNDtybZgV4Gx NZXqqTdwSuJ9m1T7Xy0G WRcryix4G1XxYull dHI+IB44PMOdOK30kURw nXYtm0sgrOa6DnLaMSGe WMT5pMeqFVswy5QzVXDr W64ggLXjh8X8PEIb bGx (more content not included)... [facility] Wound Care Noteon 08-12-2023 Wound Care Note [id number]# 1.00OTGTIFF [facility] Wound Care Noteon 08-05-2023 Wound Care Note [id number]#1. 00OTGTIFF [facility] Coding Summaryon 07-30-2023 Coding Summary HTMLBase 64 McovzzgfCPs0nBg+PGhl YWQ+RE0OZEQzI02zmKYl qE9wG8WOEApJIcbmGXFP LFlGDuBnqrZwQK6krZIj ZXJu IC8+YE6dSGIiMfwksSCl d4E5xBD7O31abg7gKXoi sXX2PRHuCgEqmiaeg9rr vDw6JDlyAckmClWv EHKceI12DFN0qO95Hx34 fAVtjWHhr4qloHo7BrUe ZLPpTYL3qUcwESikz3Gi ASRxB92wyJSqs0S5 IGNvbGxhcHNlOyBlbXB0 jY9hHMmrzcvpj2uwpfjy Vvz0ls21cQRhc1H1yNP6 C3PfibP6RXBvcWIc XmlspXBZjY7jzccxl7jv ddjdEvBbRTOeKCc2IUm4 OMDqoIjtRlPiMO77FHW5 QKDqixJrF9AnMMCd fBkvHfT8m9T5Tw3OG7SH LobpE8RLHGUNTRngrDP+ CM02hp34X2GdMbqlTre3 KRRhTQQ3qOV0cZ1o CWCqZPqgb9G3tCQ7C6Ke kfBnbj5ki2ojLIRmGTmr L33szQGym2C9ENYcxHI8 DFYtrGzqVmBjpE97 Oyc+SFJjfJjbz1KxMgcq b6ytz4zlyOi0DvifYMEk zjFqtPzfKUB8r2HzJu5a RZUxpIH7wYU6oD0f LcAvVsO4YWxvB397BqHx bZWeLqxrF59wV6CiaFW+ XIMvQwg3XSRrcVbzXZ8z P3YdNDNmjsvvcCCb fOegBK4hOUOgcrdyNUKm pL3iHRCiO0x8LtCqYmJ3 IUwyV2TsKTUjtbwtJw37 eV1qQgNwWiH5ZFry D2QppwC6KBLkuDEwBHmm ECY0E38va1S4NKPySIXe PVH7sYY5rZ8sxDybutau bGVmdDsgdmVydGlj JYdkPElsR113NQVshKuf PkNvZGluZyBEYXRlOiAg MDMvMjYvMjAyNDwvdGQ+ FOHoZDU1eSrxNUNg sSKrXQczHt6ouNnfuHze HL5mUVHbihvqXWIhrH5r JGNyjGEjjAyiQI9jNCPa cutyj863IxWqTIW6 UJJxkOVuK8XlbK0mEhJc EQDzZAEwK1SdvBHlRIvw G242KDyhPxA9LEVwnaAe K9MpZHLnxUdkQaL0 o4V0Vs5Hu0IsanrnL9Sa wBNkAjKyPhkcWWa2H1Bj PjwvdHI+GD40YYVuSP88 RXu7LBU4ySopZIip EXLlC6VasB4nClDdNNSi ZGRkOyc+PHRhYmxlIHdp ZHRoPScxMDAlJyBzdHls ER2bXl1xWRBwWBIl qDqqkTGmEtRmd5feIZYq IGhiXD9kmHmhN3KlhLB6 HRThz7r4Un68G61gN5Fj dXA+PGUwoRO1oVB0 rO4qUbFyKiT3BMpmT095 WlGjrXMyLbris3rlr8du uUh7ArA6EKAuqmEfjBeo LOB6j0UpYj08B30p IHdpZHRoPSIxNSUiIHZh mNmnfd2xrB7eSk3+PGNv pQP7cIA7yG4wVdOvPiH8 VFewF815HeTyoNUx Crnzk6hwd3papYr0PnOr VYCwryTgcTkkWWS0c5Sd Zo76A1BvdWjmk7PtWvz3 em89kHRny2Q0lDP3 K3ArCFXsimshnLWtmZdv IJ5qSLGssptqEQZreE0v EJPeI5l1TxPbMyH8WUku S9DylyL7QHVddUZu CXLwbVALfR4dxbddr9ub lpsfXzCoUMIkDUu3MGa5 SRDqnRvfKhAmUZI2XkA0 LMI2xZIkpP1spUok jmnftI4cVev+NXS5sALn nEHXMZ2qRovaoVA+PHRk MDP5lMiyJXnsKRLucI0v MJKxU7b5EyAsPiM6 IOdkG7VsgsD6JJFonCZx YHTwcRLVkQ8jtapnw3pg ichxVzWdGQQyTMr0AUr6 LWFsaWduOiBsZWZ0 PqF2QVX4qIQbqP9jsMsj yvxmuA3ySuv+QmlydGgg UCE5JZw5O4OwJwc1DOAd kPzbEK1opTLcTLql Wu7zeOcicVugEQ3yBSIm mnvir629JrAoo4ruTDRd jBWkKVowCNH7H98zd3S5 UDKcHWHhJOP5sKA9 gP2ipYfuxethtJKdfXxb sjMfnDalDIkjCZtkP681 XLQkyRxfThBeENp4Q1Bt Enu6OTIzpQjzTA9s yEHoHNfzFe9bvVbvtXbe LF5zHIIljhtqn583DlMk m1nnVFLguGQzNExcCMV0 S75cu7N9HSZaWFUf AAP2yUE8oU6uyIcuiobg bGVmdDsgdmVydGljYWwt LEwaW281POIhdXbwZzFj lZp9D7FeHfw5MASm jOltEF4maEEfHTjhSd5j gOkerEleDT6aEPJdgqqk u271EyAzt5ktHLElhKTf VKzbNBS6K23hx2F9 WUBqDGLwDEZ6rKH7uP3q bGlnbjogbGVmdDsgdmVy kRvxWEcmEPluD432HKWj cDsnPlBhdGllbnQg LSffFQb2D5JaEndtfBF+ QR95XEWwOC61jDCglRPy f5vleLl1IjPkGRGzFSY7 hMtnAYsci1NzIGOh H24smLIkd1E2BBZldXns tPKsQxWjrNC5eT0mPFpk xefal0ppivnqEisyn6pi ui39pS87L89tQIvr ZHRoPSIzMCUiIHZhbGln ia2owA1oPm2+PGNvbCB3 yGJ4lZ9wUWSeGlU9EUgj Y547AzHmjEKcGvvd a8vlw6sjcQv3TcL8KVQt fqBcbWoiIES3c6YqMg31 U19mBDlbSGYgDZOaYZVc ZXQqtAbukq6tvE3i Ii8+FOIyxEP7jCV9dO3q AlLqDfT4XHcyM888RaMo cDZiBnorO49fP4YncIW+ SEHeTbr6EYUnlOtg JM6kzHVsELezNl9iERQ8 ZyVlHxPtNCzuM9EeDODq qkagqlynyQJ3OYHzUXVe aP98Xv0nmHrrUVLg gYXDtW3yhocxh6ftfxky NuJrMJLyWEs5RXm9ANAi lHppOfEuWZX1FfI0RWV7 oGIsyE5zrEomhmfu dA2xY5ZrADOhywqkQd48 aF7dTlKvFmP2VOjnWpr+ M6IUWdkzCQ5HG5hXRCkd SzwvdGQ+PHRkIHN0 yXebJPklOGLjqN3fAHGk A5a9FaPjGxT0PMnfY0Bo AOChcshjEv40pK6zElNb PcM5YNdwM0WlleH8 VUYsiFDlKHdrZTV9C15i i4T2ATDqNJQgNFP9pFS3 tH7myRqywfqbwWHtuVjs dmVydGljYWwtYWxp W875ZYPbeUmvAhQzNtD8 VuJ5TaA4H9EoDfo2UXHq tOcqXQ1mvKFbWOknXt6f cGtajNqgNV5kFGEv eccnHSFxqT3rQHIsiPLh cXnkVS7cCFZpevaae228 TvSiJDB0DHWtbLSvJ8Bw oB6kSnDiUWJzKBZh F7YmdKCyEFmvM069ITss VsZ8BEAwydOiN5YzFYRj zAlfBhL4j7L0Wo38DMZY ZWFyczwvdGQ+PHRk CWE4gRnyNQomYGLnrN1r DDInZ8p0IfUpLmU3GIjg M1FfGTPwlupcYh72wX6t FvYkLwA1MNsgL2Cu zxS4ZKYyqLFoJIgyFDJ7 W38bg6F7FUWiAQFuEDN4 kVP0wJ5adOswtjkpiBQq dDsgdmVydGljYWwt FYufV181DFYmiHcxYq4S ODQ2A5DaXzs0WUZggZqe SM5mbYJkYCxiEy7ueLsn sBnlTH6eXPGajwpo IQQdeR1lBNTggTTkmKuk CM6nYBIdkehis389UiEj NOH6HGFjzIYdK9MxeF7h KxKzUNBbYDUeB1Hb uUKrVUvdA011BTgkWkC7 BMTgzpKcD4MfFKNfyFjq WeK2a4N4Rs1VZYnanRD+ BI68zq92W9NwWhqd Lct0CABfHIM4zAA9vB0b VEIvVCmfb2X9cZB7H2Px ivFemp4ng5rwDSUwSTnr B29acIBui7Y7UGCo gMT0TNErqPsdBtIajA93 Oyc+XONxxRdaj6BeLebk h0vfu0uliDr7YaYeWYCd ijHtwYkoKDV0e5Xk Kg02C79vACcdMQDtSOOa JYXtZLYkkHwbxi6xzC3t Ii8+SDXyuTL4oZZ3fE1c IjJvEvR3PLsgB425 GpXxqKNqLzflz2fjj5zz pNd5QnYxCQDxvmZxiZfj GXP8c3VsYp35X1PmmZzy e7ScPpm5ah81iVXw z5T1vZQ0U2JqWFBlrcwj kGOykSpfRY9cFCPqsqfq UYTliW3tKDAxH7i4AdZx GrY9GSbhC7WsieK3 JNAeuJEmROQzkBYHyT5n loana2xcvqaaLeTpTREq LQh5QZy3MZRnkEudVwCk GSK0RxQ0ITD5vZGz wE6edXpttcploJ6tZoj+ WVt4u0dqgDLeJG0qzQY4 TN34TB63yDSyu2N3hCV8 D0VhJWKlvvkajycp sVR2WRKjLSSmwT81Ux1j sWqfOd7mPFKqPIO1KJNo qNIvT8EpyL5eYoDcHLKp WAXfN0ZfyLNiDPzh R906FBesFkK1WJCftdVc W5PsKHWsfIdnYqP8k8T5 Zb7IVV33OP87WN35tYAd g4A7xDS2T4BeDSKc sdswxxmfrZV7THFnSLKp fV64Ao9vhMwgDa4nOOAs YTG3QHBfkSJxH9FwxJ7t GoQwILByNKEyB0Pa hYJrSLbmW953BCsfKiZ3 BYNsgdYxP0HeEKFqoQxl RqU1l2J5Fq8DNx18PN94 NS16cNGrw4M3gNW1 B8UhCWNpxwjcwavxcWQ1 TDHvSWRfyT52Qu5mqIcf Sn2wJPFwTDN1HDQpaJEq M9WikH9pXaInULQx TRRnV2IusVNgQKutU096 KYitXeK4XEXxlzFfC3No ETWqvAmgMxE6q4A2Bo1K SEpefzy3N6WbCzsx dHI+XR84OJUvLY37cLZi sAYif9auyDa1EsHyVHHa LJX4aWjxBAmdv3KpIQQq A28lsNXzq6R8CLOp bGx (more content not included)... [facility] Coding Summary HTMLBase 64 DayhzglmTBr6yGz+PGhl YWQ+MH9NEHUnA27crVOz yI2mI7VCWKgDFrlgIIDA QQxSIeVwgoGgSP8bwVMw ZXJu IC8+EH9gSBAgOheapYMa q4P2hWK8E06rfv4dNDca rDE6KYDjUnTypxjej9fg yDw0QVufEnvjBlXj QBPnvE31FHP1nS59Xz08 eGLpkOYgb2apbAw8EiLp UFVjFYI8wXxqFPpwr9Kd JTRoQ24wvOJsl0U3 IGNvbGxhcHNlOyBlbXB0 nP8vVCcvgcjkn3rzepej Ltk8kn57wPOyd0T4dZX8 A4GgoeP9EZOuxOYz KhmjcGBXtY3tywkay6zz ewhrNfEiHBQuHXw3YWd0 HGMrlHxzEfWuML96CPB0 AOPqnhGkO0OePAJl zIzvTfW4g1J1Hc7IX5BK XovqX5BQDMUQXUwzaEG+ BP12js61T2XyFyrrMym1 CJEjNUQ8fLF6cG6d RZDnLUlgs1I1wIP7Y4Oc fsJzgt1uh8asCPHlUCny G46bcHSbl9D9RZQinTJ2 DIWpwAvbVlOfgV66 Oyc+GKFuyTmpf5QoUkia l5tzp1fydFu7NtmsPSCu njHhmQxiGFT6h4UfKt8t NJRdhMV5aCM5iR9g CiNnKsT8QGfeW433PtFj cJAtOlvhH68uH6UeiFB+ QVXpYzz7EZUghTkwFT9g C3QkDIHmvvwlfILu kWybRC9iTOCttevySOOv mL0yVPIeN5v0XaUpKaZ5 SUglC6TsWVSpqalmVt97 oO4cErLjOpR2YAxm J0JcgyZ0JFQuqTPePHxc KBP6G11dj3V8BHCrBBMg JHH8oVV0mS6olBrxjfaw bGVmdDsgdmVydGlj GIguOAkzK860QNZbnFtu PkNvZGluZyBEYXRlOiAg MDMvMjYvMjAyNDwvdGQ+ LLVpUBF5tHgzOBHx mVKaIOamKg6qvVzfkNiq EI8pOFOcqkkhMRHjgB7p WBEekUVpxFggHY7iXXLa fpbam982NrUpHIC7 OJQxaWLxX6WrlP8tJmJt TGNwDBMdK7GxwXRzQEwi O241WQywUzG6QSDtvqTc I9OpKEShbGbsKbR7 x7O3Uf7Xn0WxbatpE5Hx jWDhYcKeKzpeVCj3O5Ms PjwvdHI+TV89GOIkTB29 CLr2NCY6wCuxTHey UTOwT3TmpP9nTyPnIOBk ZGRkOyc+PHRhYmxlIHdp ZHRoPScxMDAlJyBzdHls LX3nYr0pTYHcLXHv tGqeaSNbPgUmx7qcMBFc GJcxTZ6ckTpgL3NkfSH3 MLUfd1c4Dg96O67rA8Vf dXA+IKTlpHB7bMW8 zU6yGvVeYjK1BErnD396 TzXwfSJbSwgia5cyk2xb vEv8RnC4CLAyqlObqLsl SLG1d7DiAh12M74q IHdpZHRoPSIxNSUiIHZh vMgtzw3idZ9wCb2+PGNv vDR8nXD0zS8bCrIkViJ5 YZmmM060ImEyzWVx Uwyny1nce5kjoTs4DnOf VTXtnmGjqOcrXCO4l3Wk Vb57P3WahSdlo5JiSqa7 zk20hGDvd5F7cKS6 V4HoOAGuchzygWWawVqh ME2cGWPsctrnAIQuiS9z MCFeV6f5BeFzMwS3ZVcu Q2JjakU3CXPpzKEs VGJonWAGgK1ovigmy4sl rsnsDtAqDVWoLRp2AYd4 BIRpiQhkNwGmGVB7LsV1 ZXY3qEUgtB7qpJgc uzzljW5bHoc+YVC6eZOs xYIWGZ6kAbnlzDY+PHRk PBD8iPqnVHqlEQTecC4j ITFvB6f1PpNkMmU2 KYjmZ5SdeeP6JKErbMRw WAIvbKHQyI1wagrhn3cg enuiSxOoBNFqFNp2HXc5 LWFsaWduOiBsZWZ0 MmD7VOP4cVEpzZ9hfOas hnzxuI7pGty+QmlydGgg WOP8ZQz1U5XgGxo7YAKw rJbsNM1arUSdNDrs Qk8umOjrwRccEI4gVIOf wvrpd261BeYjp3sfGGTc gKGvOJvdPVJ4C15yb6V7 RBYlDXWoYPF7hFK5 mD0zeXfzuftsvWZttNyp vfYcgSreMIwfAZueN884 XGQllSprLvOcHNr7W8Et Zqg5DENlpGvvCE6c fUZbNXevUz4sbSztcJlp ZG7eEIIpfexhf171OkCi m8yuQGIodFJgEWuoOPO3 J30js8V4UECzXJSe HDP7eYH9nO1dvSfxxuqi bGVmdDsgdmVydGljYWwt RCxiQ654WMQmaRfiHwBl rYu1D5LeMbx2GDRs wNpxPJ6esAFpJWdfCd2n cFanmSbkFM1bURXhjbxr n429BgNuh0okBSJqrGXp DBohDBX7Y80vr2Y3 DEWnUHLoKYX9uWH3lI5v bGlnbjogbGVmdDsgdmVy sOhjVDncCRzzN952YISp cDsnPlBhdGllbnQg UDlfMGd3A9MlRjuesPZ+ SI78OLLmXH69tLWjiOTl o6lidLe9ChCwDSKcXGW4 sZvrAEohs9ZqQOYv E23kqKZra0I1KLPbwAhi pYVhXtVgeUX5tG2uISmj zrrvh6wtcqcqAawow3rr uk06cZ19L61jOZyq ZHRoPSIzMCUiIHZhbGln gp3itY9kRu5+PGNvbCB3 cZG5hW8uDUYzBzG8NGmb I426RcMtgFWeYkxj t4tem3jgzTo6NaR4JKXj slQowHxuFPU6o3HgOo06 H39kOUtaVITmXKKkOOYk VUUuhLmbhi6wuX8f Ii8+IVVcfSJ8gXB7hF7p OdUoWxX6ASbpA320IkXn oAMdEwsrE57yN7AxuXU+ BLRaKnx4CMDmpPcn JR5rkOSmRTxeBq7hQCJ4 ElXeGsAfEIloG0ThEWUx aosejtnndMW4RPGwDBWu fZ15Lg2lmUjgNDDu gFFZzE7gfiwze5kiljmj JaBqCXKcOHe4BSe4GKSd aRceSyVdZFC7RoA7KOK4 pLDujZ8lhMkrwnvw sD3xD4BnBUQbwdkwXd92 rH5sReIhOxP9SZduVia+ H8MPFzlrFR9CW2dJFVvd SzwvdGQ+PHRkIHN0 cYzgPOkyGZUsaH6zPJJt E2h0FmFqEaM9SVkhL3Hs GTKvygmdVl81sV8sQmFs ZxV0PJgdD5LqlwB9 MMFmtTZmEPatRLW4N68f v6B6JBJlLGPgIBC0iMA6 bE0inWgsumffbLBkiKek dmVydGljYWwtYWxp F146FMWmoZxeBbDaWuF1 KzZ2BzA5D7DcLwn6RXQb vRunCR7rlVXwKGlgNd7f aCmfvSjuGD5mYJPx vuuiKOXmkU7zLJVbiVYt iLpnQE0fPZQakzoko335 JcOkENC3ELPcdOCzA0Nt rI7pBmInDVXqZUVf K4ShpPIjTGqsR968JLcm MfB3AGCsjuZiK3PqUNOr rGodBjL4j1P1Id60CNIN ZWFyczwvdGQ+PHRk CEH8mUanVLuuDBOdbC1z SLNbL8w9ZsGvIsX5ECkv V1IsSANminheLf30kV9m KmYqZvO8WUsoL2Bc jkT9TMXmpBWoPVsdEMW8 J49po9I8UCYlRZMjYTA8 yWS7iU7iaBengdympAKv dDsgdmVydGljYWwt MSsqN725RVGexRpiOb4A IAB1K8YkUjs1XAFxwQhk JV6weLKgIIyeWt6lsQar rFwsWW1eJALdqmlv ABXrxP7qPJJbxKAelFpn LY8xUFUvqykol126OwKq SVS3KMZssISzG2CaxR6d UgZgUZEnFASnQ2Wf iTHqIJtnK902SXgcImL0 JABnllWyA9SwWZUrjNmv HtO9n9F3Od9NJGqigRC+ HZ32kv50G3PcCguw Nfv2GQUoJTW5uTS5nN2j TJZlGNcgm9A3bMS2O8Dy fqKdni1tc8utDTMcDYcp H39llOObe2M0NDQi xXJ8VTXlkLriTjCrdN10 Oyc+IFBpyXsdn4XrXktu d4guv8cfvMg7XiZzLAPz njVznHxzRHR9s5Of Aw12M70rRKorJMNyVMDj MNBqSDZktKkuei6oaS6l Ii8+FDPcwFW7fZB4jZ7n ViFbVzV4OZooM754 GiXwcPRmBlpta9rux2gb xHa4PrIvWDFzltObsMtn XGB1p3NnDc27W4KfbWuj o2UnEju3nq76lNAx z4S5lTM7X1OaLLNtymso oGTwpFcnXE6aWEQeescw ALVsaI4vLHKyU1n5RcOr YhO2COtoF4MtaoI6 CKVnjHMdWEQlsSVZkP3v kudbu8zdqikxYhXlBYFu XAe5SCa0MNEwyHdkXxTt XQM1OsH1OPM7dAZa fO6gsKqazkprnQ6iCwe+ CFy9l4drcMNnJH3viNR1 YM68EF37jMXuh0T6iEG0 B3SjZYUgunsbiuuy bHP2FCKjTWNdkT18Fd1v jMyrEu8iJEKrDCS4DUPa pYBiX1OgoL5pLgJbFYHq DNIyS1SwkSSmYOhc U715XEzwBlM0YKXzmcBv B2AjYHZcuMlcDnK5w6U8 Bh0GSA18VG71VD18zJKb y4T1pHE9U9OmBAAb xvfzzfukvTL9SMKfJWMr pU10Ak5sjPtbTb9sMKGi NGP6IRWbaRStF2SwmJ5v EaTkKLEwXBJkK1Cc eCMwYTzgY337BTfsWyL6 PAPxxnCoN1PvTQBcbLeo KkW4i5V3Tt6CKf19JL47 AR61bGCkw9B5tBW1 X3WnJLRkapwunaagjWQ8 TWLmQTIxpZ55Hj8koRyj Ir1lEJBxHZZ2GNQwyFDv N5MjlA0eEsXnNZKj JUMmF0TjuYFmYBfzN833 FJbgKmL6CUSmmzOsE7Ma PQBrqJmmLgC7p0C2Wp2V DXhsqcn4J1GuWggw dHI+RS09FNBgZE70dPGi iOYas6uleOj7DlPeDOYx SEF2sCumUVxbp5HmAIXs P76tsVVtg1Z8GMQu bGx (more content not included)... [facility] Coding Summaryon 07-29-2023 Coding Summary HTMLBase 64 EjjebwlwWKu4vSl+PGhl YWQ+PF0JUQZnE94ybCWa kZ5mV8OCFVdWApngIREV YFwHArTqruFeOL5axSXs ZXJu IC8+BE9nAKZyMkgzbHWp h3U7vSQ8R47bwm1jMKiw vFZ6XLPtIzMpooejl5bk vVj0QAdrLqmtUzAe MMQibA82GSM5tC85Jk19 lEZatOJdu7ibfKn9NoRj ZKXrTDM0eXlkOEkdh5Gf HQYcX81wgEQir4Q4 IGNvbGxhcHNlOyBlbXB0 bZ2cONyzszacl9cljvjp Ftr1xo53vRHop9C7rJS7 M5UxwkY6WRBllMMf DwqfdOXDsJ4oafvrt8co vwgsNzBnZITsWRm5OAs2 NROrkPtoBjUmGR14TEZ5 YKEygqCnC1QkTKXf jVmaXnD6x8E4Fx7TH7UZ QbmdA8VCYCEQRKaxvXR+ QZ01vn75Y9WnJkiyPjv4 DZFpHWN5eUQ9zG4a COYcZEict1Z8kYA2M8Sx giJszl3bj4pvJOQkQLqc S24jpMVmo8A7AGHgcDC6 UVOynGymUcYfsG24 Oyc+ZIWcdBxct1MlYlod z9jvg3wdaAk2IhoxMFQj qrOdrGhdGQE4z0BiMj4l YCAceOI8iYE6aL3x QnDkKxP2ZJuhN304RcPf yPQtMqvsC15vV9ViaDJ+ UVVwHvc1ZJVedFirQX7v K9LuKOEflvowtXSj iUzoQG9cWUQgrtvnLHTn jE9fOJQvC7z5VzDsItB1 ZMxcJ9JqDDKaclqdTr56 iZ9nFjMzZeB5KXju W3OitqC5TOXjkOMgQXvu VDK9U05xr5X6FJQsQXTb EIP2rWQ3oJ9vtNipurol bGVmdDsgdmVydGlj DVieVNkvP697BPEvoHkm PkNvZGluZyBEYXRlOiAg MDMvMjUvMjAyNDwvdGQ+ XDJzSGX1qSylWGIq yHAgPXqsYr8meKrtdArf SE3jREEeyobqZXNmoZ8q REIkrOYugXohVK7nSYQk yayeb987KlOlZEM4 JZRtrRPzV8KicD1pWxJg JVYaLGYcQ7TexPFnHSgi L064OPhoXqM3ODBpueHf U6TuXNTdmPkpGcU3 i5K5Ft7Ln8FtwxvtB9Uk dCIwRtOvQaggIVz0Q3Zh PjwvdHI+NH94WAJuIG63 QTw0DQF8lWdgGGjh WUFzO5HzkG8dFqWuXCPw ZGRkOyc+PHRhYmxlIHdp ZHRoPScxMDAlJyBzdHls SU7dAw4oVYWzZWVh nIfsnFBcJdLzv2baQASk KQgmBS9jdPhgP0TotSS4 GHUtr7r2Vd15N10cV5Cx dXA+YJYqcFG8uRE0 eJ8sMqEwQsK3KDtrT405 AkMyrCXjYzwqe5hvs4eb bIn7ClM5JQBwvkPnmMqk PMH8f6CvPm31J22o IHdpZHRoPSIxNSUiIHZh eDkrge1ctM1vHm1+PGNv wJM1vTT6yQ0hVeUePzA8 INtvL745YhLjvVWx Bxdqc7nnk2juaHn5PhDm RVCialLulPtwWEX6h2Nx Jm03T4JtaUfzg7IsEax8 gn78mBFsy5E9qJG2 D7RmOKMhdqlawAMduWrn FV1zXSPpupelLDCbqD1u ZNDwM4z7MsIfFkU0RIri S5LpgrN1UCTbzRSz BVMdxKZAjY0cssdlu3di nxewNiWlFZRmDQw0HVv0 UDKazHruGsExSHJ2JqD1 CJS8rWAtzM1ezKxm cyhniU0kDhm+VXM0zMCc iQKANE4xMeqmgTN+PHRk ICR1xXjlFIyvKWUcjG5y QIMcT1b9TgKoJiI2 DKrxB3EvfwN0ELFubMHj AFPouEOQuK3ebrkhc8pn pjhrGsFiDHFdYFn8TYh2 LWFsaWduOiBsZWZ0 HgG3JLI9cWRaoS3rrHhp qnovwL6hWod+QmlydGgg KIG8SRf8G4FpEhl0EEZn bEyiTK2fuFYpGUcl Jt0rvBzonTskAP2jAAKf jauip335LnIma2ajULZu bRWcWHobPZD5Z95jq7J5 ZAIpNZCoGRR7cBV4 sD7dgPjaguwtmXYijDnv ihWqaOvyLRwyVNllI275 KKKgqJkwTtEsIWd4V4Nd Kcy0RWAfbPgwYQ2i nIEmSXosOm0zlKwyhHvv RI0pWLCmhohvl782ZhRz w0cuRBCboRGlOBulEND9 H59vm5B8DWIwWCDl MUL9vFO4jO9zzNlrjlhc bGVmdDsgdmVydGljYWwt LFytD353ZAGjkDkyGvWm jXb9T8SuLtv4NAAu yWyuRG9sdFOzRLnnTm6y oUwkhGbaQM0nZWAbcbvm o041ElTtz1vkBXNldSHf RRxrXXO9W75wg8M6 YVQeJAUlYHT9qFQ4xX7c bGlnbjogbGVmdDsgdmVy uWqsXTxuGWfwP376UTEs cDsnPlBhdGllbnQg TMgqDJb1Q4WzTwuldIL+ GE83ZKQbEL72bPHyfFIy y5ouaBy3IkYfKJMlGVR2 qXdpPTkrn7PuPRMg X66cmKNbr5H5YVKiaOay pMYdNxQfiPP1rN3bKRfa bucgj1qugozeFigyh1vf py99uR35N10wCYlg ZHRoPSIzMCUiIHZhbGln af4skM5kTu3+PGNvbCB3 qJJ6xV4wLZBeMeC5QRny O062XmFhyQClItcw d6giw3rfuBr4FyC4HFQp ziZybXdbHGW0f3PwYg34 D69jXMisLZZlPAMwEWOl CVHcaLqmct6fpF0s Ii8+OPWpwMT5gRY1cL7n RdRwEfN3ZKieA450RmMy oCOeGthfF57oL4PwgFH+ XTSbNwj6UDKomVqa QN3xzUNlZIatBh5sHCQ2 FuPpRuZlKSuhO1TrBOSg xfcqlzvucGD7EPRjPWFe wU35Wj1kqDtrPBNg jUXMtV1ddtmis4mvmkki SgJaBOPrSOd3AWl1ANYz iShlYwKwMFA8BhZ4KWA2 pTPjhS7ssBmsopzl qF6zD4CaVIIqzpguCl05 bH0pCbUoAqS4KOgaBmn+ E3LVUbutGV3FN3sPBAox SzwvdGQ+PHRkIHN0 yUnzKIqzMGXgeT3pDFUt G2z1SoJfMyG6QYfoD5Xm ZTZwcbjlWw91zB0iSmDo RhK2JFpdW8YlodT9 BDKbpEVmPBraSUN6W93p r2B5ZEEyJTOmYJA0qFT4 yW8oyXbtcwymuVUrrPyz dmVydGljYWwtYWxp T032MPAkiWlmUkItAvR5 GfO7OmW3N2PyXub1MXQc tHxfGK9ivYXpNNfdKc9x dKxzaTvaUC9hDPLh fimnFOCqoE4hRMHfeMUb iHamQU2pEQBhbwnfa626 QjBkYYB5ALBhsNBuN5Nc sU3aCbRdNKMuWFZt O7CnyGDwLDdyD986VMdu KvV9FZUoebYfH8DdENIi mTfwWdT1a6W0Ro72GGQI ZWFyczwvdGQ+PHRk NYX9oPibAQtsUNXkmN7j AGIbY7r0IuQrRaT9JKly G5LjNFVbedgsLn01nI8m GfAkWlI6SHadU7Vr czT6MPQhsWZaRLvsTYO0 A68de6H7IWTiSBFxUDO6 bSL5wU4yxBwqldzdrEPu dDsgdmVydGljYWwt FEysU030ZUUyvUvuAs1Y NIS9L7KpVsp0DVCzsUln VP3nvKEcKXlmKk2ffDqy hAycMB4lAIIskezt VHKgoG9nOBNacCBvkKhb RA7nVNRygtqzg174TcEt GRL1OWRffOBvZ5GxtT2u XxRnKVUuDDNkM5Ji eGZtSOukY980UEvyOxC6 YVTychNuA8PlDNSuwRkm ZmE7r0O7Rm5CTWntwHS+ VA78nv05W6ZfRblu Daw0STLdIXC6xWI0hL1o RPYiUNmff2I2qLK7C2Gs tgLfbq3lk3nnVRNuAWyx R07nhPVeb6B4BLWu mDB3MRKizHlwHrQdpV19 Oyc+HRHhyDrtu0VsPneo d7spd6bakRd4ErQiUGZn udRkxNscFYY7j0Bu Uf23E82oJGdgZLJpPAQc LEMtGSJmiRwijq8zjF6a Ii8+YLEvjIK3gJI5wV6r XsMuGrV1NNepX558 CsAdxQVzOxwaf8obb6pc kGl7IeQiRFUunjBrdJly IWU1q3EvEp82G7TjsFdx e4TcNwd3eq97bQSm x4Z7vAT5G5BkBRKpuwgv bPQixAkbON2zELYneedi NAHpmP8hZYYwI2e8QxIr QbF2UVtvN5DdvqH9 UEIhwMSmCAJasUXZmA6b omzcc1qniueiEqDaYHNg YWz5XUg8WQEquCnzGyGu RXB7ZkC3ICN1sSSn iW2ukMmbpoheiC0dRhg+ MNm6t0pcvFNfBS1rgKU7 NN30LQ59nXEhw6W5gIM1 G1UkFYOjjzydtjaq pBM1ZKRmCFSvkJ51Ob1w bJjmXs7yKNNzYLI0USCq aFEdX1JoiV9pOkNoMKDu GEDxH1EaaAYfIPen C917YSpaKhE6GJOekyFw R7GbDYEcoBipHyJ9y0V5 Xc5LIX57RH63CN08vAZp h8S7vLC3X0UcJHPv uudcjwhbiAU8RCHiUZGe kS58Ad3yxYnmKk9eWSUt EAF2XJOajAZnM3JgvC2d KeEvYOSfLZTvP6Oi mPStYNfgR867XOkvDkX8 VKJkrdXfN3KpPYAlaPbl QsL9e3B1Ak9SRk07NF51 MS45fKWul1M8dXA2 A6NtUMRvdmaxrrbmgAV0 BENlWEVzvQ88Tw6obGsl Wk0uUZMwNNG6KJUoxXDh D2QqnF1kWuKnKVCt GAHoB6RjzVNgMNcoL852 QWblTnJ5JMAlhzFgB2Ej PIMgsJmiOmH4o8C4Uv5Y NBzlmyh8P6BdUahj dHI+EH01CPJqZI31qQUt uHVpd3lviVv1DfGcDEAp PXH8gGhkNNblm9ZtVXFd G00eeRFhb4W7HQVr bGx (more content not included)... [facility] Coding Summary HTMLBase 64 SuvizwsbKAo5yQy+PGhl YWQ+JX8THYCpZ77jjSIj gW2fA7AIGLnTJcojRQOA KGtYWmTlqvCgUT2srKOd ZXJu IC8+VG3uOGDkCjywmTBl o1P9wOQ6K12bir2bACuv zXF3GZOeAnTybpznf3mk cDr2BGzyZzkeMyPd BIYkvB49JIK5aV73Rk28 dLMejFSeb2qieCj3VwFt BADqXGD0bWhzVFzol9Sc QURiD82ttNSqf4B6 IGNvbGxhcHNlOyBlbXB0 lB6xGXjqojrio7hfmflv Enq7ef55jPWqf5M5qTC7 X5AkgzR2OEPdpMRo FmoopJHRsF1xtmfqw1ih aiinOfMhYPSeHKb7VRd1 MQAutZcgVtQgGA08AVS1 JVFqivYeO0GwGBCe oIidGoI0m6P3Fe6EG8RN FlnvF4JZKOBMNEczlRZ+ HE50ix56U0XaWdxoKrr6 DJUlROS9kQN3eQ3t BHTvXZsbw2R4yNU5P5Uf ujOndd5pt3qcFYFeGKdt R60olHLis2X7VEUeqPJ6 BCCurQrqXzPnrJ93 Oyc+DGUfxDmoa9FlWznz z4zgf3myhSc1DkhoMWGu fvXmaOivEJG1r4UaKz8g NDEfwNV2kYX4hS4z VgVfKxP4SEmgG671GdXq jLKfEratU15qR5ApjQH+ JQWlIzz1MWTipCopHZ2x B8LuJURfxozlrITd wWayWP0rBSXozazbLZBo oE4tFAPvC3y5XxTiHmN4 UPgyX6YaZALcrzowTy32 lE2kNiQpXuZ2QXut R9ZdeyY0QOPwnKFgRMpi KKT1U05ne4X0IIAxVQZg CNP6lRH0wW1esSfrnceg bGVmdDsgdmVydGlj BGprUIvcP322LTVrzOwu PkNvZGluZyBEYXRlOiAg MDMvMjUvMjAyNDwvdGQ+ RNZxHQP2dMadFYAo qLAaOZyqGy7xoHoduAcv SG3dPOEbdexnLCWjnI4y XFMdySTcmBfoLN6yKMOc toqrn598JdLaGRA8 EOTjlZFlT4DyiK0iLbIe ZAFtWQCnM1DhsBUjSLxy P696JUalDnA0NYUjruTd Z1IoKKGlzZfwPeQ4 m1P8Tp7Gz8YbpqhkN4Uf sTWvJnGfZanmYFr4B7Pq PjwvdHI+GW92IWFpUP70 XEe0NQN8iZlaPHcu FGCcO4TfzH0yWvFmEQBt ZGRkOyc+PHRhYmxlIHdp ZHRoPScxMDAlJyBzdHls MO8xRl1zLIEfZRIw rRyygJFdOeDaz8ezGGVg QMwpLC5xrUafY1JmhTQ5 DRCuj3k0Xb83X92sW9Uo dXA+TXTguVM2tOX7 oL5gOiVvXoI5CEshI005 NpLxnCIpEkthh6gfh4lp fJd0VfT3VZAvqjHqsLbf UCA6a6KdLn58O78l IHdpZHRoPSIxNSUiIHZh kPxhqd9tqA1xKd8+PGNv kKO8nPQ8mN1fNqRdPsR5 QXrmK424FoCkwBWq Pjdea9uue7bdqPx8WhMm ASFxyuIxwYbqIVR4p8Pn Rw16A4RzwRoap7HqYbq3 ih22zLKhc7X3vXY1 C5PwWSLmhamemVZcdBac EL1mFLRfmohbGKRvcH5v XRSqT2j2BtRhOkA2JHoq N1FhosM3ZGZryATe BOSsaPEHnV8sederg2aq ouzwTjJlVEWjVKo2VSy0 XNIxhVizBdFxWKR0VqW4 ZVG8dGDztL2mxArl jjpleX0aEhu+GIK4lCFm uAPUOC2iTpkijKE+PHRk HZS4iWubSJdwVNUspQ5x BOBaI4c6FbZpPmA0 WEesC0GlghM3KJXqnOXl UIBzzHDYuF2wadldc0bq xoyyEvIwALRuBMw2DAq6 LWFsaWduOiBsZWZ0 FsV3WLK4yDPycG3aoLby jqoutG6rCip+QmlydGgg GWR9UKx5J2ClOdb0SZYq gLziTD6jlCFyVJxd Pc6oxAijcSfvXK2lJDZu gcdjd688YxPrd4deUKYw oELhJLluFTG2R85li4X1 CSTlUCOpRPE2oPN5 uH6imEqqutmxjZVyvUxj ejKktGwdLYdqGZcjU078 FSIdbUqrFqKfBRt0W0Pc Emi3QWKmqFvoCF5i kHRnNQdyQw2czZwzaFtg CM2rBZUgdtlyx217HnCf s5emMGFybQUbBHfaQHS7 F41he1W5KENvMVVa KZZ1cZT8cG2unEpgvijj bGVmdDsgdmVydGljYWwt QXpnC213ZIXnuNveFdRa xEb3C4DlBty0BJRq jVhqIN5dzVOnJUkqDa2s iRczbNhdMF9hKFDloxry q834VfVct7nuFTGekNKe FVpxKSR9N07mt4U8 ICMdIZElQZR2mIG7fU3c bGlnbjogbGVmdDsgdmVy qNarZRsvHBjwP455XJHn cDsnPlBhdGllbnQg YKtqNMm1K7LtBwxgaXK+ CP08JJMaDH83iOMwrIUc e1bkoRu6IcSdNUIxUGY5 yMzvRMlku5NnFGSs J78vlGLhe0V2QLCjqLbm qJQfUvJccDA3tM6uDDcx lxugn1febvmqBjpjo9bt kv89gI43M13mCZzu ZHRoPSIzMCUiIHZhbGln ab1tqN8sMa8+PGNvbCB3 dLA8lW2iDSPkUtW8MPtj Q657ZtYwdSTpKqhp w2bkl9hfnWw8RfO0CHFn rsRlhXwnBEZ4v2MkRj27 W74gWUmmMDFaNIGsEJJu YCDoxBjcwm9hhE9b Ii8+ILZmcOM2kZQ4oT4j IyEjEhR5ECkaP814VlSd gKZnUkzvK60lG3RcyHW+ DHAsZjx4WYVitCcr FF0zgLBuDPoeWc0sCAO4 NeXwEvQcIIjjW0BwHQTo ahnkxugqrUF3QQOwUXMj yZ22Oz2ffNzoCTMe wKINuB7aqrovy3lucofc HmOeFAQqRBa5CQy7XVEj aHeqHiQfLGF8KpX6HWH7 fTNylW8eoMctqlpz tD8bF0LtMRKixwhhWo66 lZ7qApLvZyF8GQvcBgb+ S1QYMtrpGO2UY2tESYeg SzwvdGQ+PHRkIHN0 jKsuHTjpVUVmnD1dHYId I9z8WnHsWyU7APkaX5Sc CUWvvwfvOy46hP3sScFl WqP0HMwlS4ZywnY0 FGTbbDVcUAroGCM9C78l w5R0TIZaTWNyACR5qJO8 lL5jaUpnpzotuWPgnQne dmVydGljYWwtYWxp D301VUYuwXlaOfChUdU5 YpT6BtY0J4IiPpv7CZHn tKehVM3foVBmEJueFn9x wOnuhQlhYJ9jBMLe ygayADEolC8xBLWgmNKs mCayJV8rBTRzywvdo048 JpYjCSX8WYWmeMWnU2Mg pZ8hDbCsLYYtUYFm K0ZmdXZwEIrxE114LKpq MrI1KCYxxuDsR4NkAUBe rFxeHsP9f4C9Lp07RYOU ZWFyczwvdGQ+PHRk KTN2wIgjXVrtXXXmzU8i XAUkP8r3GiWxPbG1OKvu V7ThDKLlzwigSw87lR5k LfApOuH4YShrY0Fv odO5DXYmkCIlIKrbLBY1 A91bl2B9DNPkUWVtWLW8 hGV7nG6guKzxmxezgOEd dDsgdmVydGljYWwt SFmzR743ZAOhrTtzMw4Z JCB1G7ZnGwm8LYVatOjr YG4cvWNqXGzwQk0ieJip kCegFF9rGZBkuwlk XDFirT8fSYRwpBNunCdf HT3qQSGgydkgp479OaKu TCC7HDPuuTHsE9YpnE5n QdEnEXBbZMDvI7Ao bVWhNTzvO467SOmcEkW1 QRIbcnIzP1NeRBNmyEkg XlF6w1W3Ro0YCJdmmFR+ RY38ai46U5LgHqgj Fvn9GBOsIBQ8wGG4tB0f CLTwFXxjl9B9pUX8S4Mh wjDivz7bf4kqSAZtHHrh X56swNYyj9C1FYNk qLY2STHviTxmBdInuV11 Oyc+ZIKvlHyhm8KsCldv n2glc4xenHi1EuQwIISu ewGyhFbuMZH8g0Hv Nx21X90nAGoaSFFuIZLy KQSeTMDblQepev9meY3w Ii8+EXHozCP5tCL6qJ4e YvSoPbJ9ULdpR913 SmRjuYNbAfzlf8won2ee bVb4KvIuYWFcfhYzvOec WKC0i9SuCp56Y1XisPxw c9TwIfu2sg89vAMt v4D4gVT0X3ZjCWXmcxwf jLYxoYuyCE9pHIOsjboe TTRigK7cBZSjP1r7MnIh AlE1AHidN8NffhB6 OMRkgQCqJXAywHFVfM5c wnqhv5xouawtTnPoZXMd OFs1CWx9WKApdZypUcYr XNU1HwT9BJT8vVIg iE3wzGoqgviwjE4xCfc+ QXn1y8iqaQKnGK8reWH8 RI95FU75bWFgi9K9gMS3 L4JqQSWvekyzrttk eTE5XQQlONZanP79Qw2p oSppSd5vXZLsDRM3YZZh jKQmH1ZaqB9lGeQqSBBs JOTbF9ZnmIGhDHlt K286HHxpUoU5SNPqkhUw F8UtRSOyaZsmMdV2l1Q2 Pz4EAG34RS17GR83rOGe e3R0eVG1R1NcBAYk znekzhdogIG8FDZzOEKv nD60Jj8joBamPb5gHKTp JRV0GRDqbKRmO6YdsH0u NnLfNZHxHYVjF0Mh vLJnLQuvH575YNlhZlV2 RUQyweXcY6OuGYGpzCzi BcZ9z7H5Iq0DXl27YW75 NZ95vTOoe4F4bQK4 C3CvWSWtrmpyizxmbKU0 LAVqHMUrnM24Lw3wsVqm Sr1xGIUtPDI2ZGUgqYUb Q6GerA5cJrEtPDWd QTFhW2YcyAEcTLhkU603 RFdkOiB0FUPellLyG8Jm GDZsxSoxOzW5j3L6Cc1G LDwfldf9Q4RnOrcy dHI+QI97OYNjRV88kGGl wLUjw9ookOa1HdZrMNFi SNU3kSavPNwgd9GrTNQc I84riLWbu1C4BWBi bGx (more content not included)... [facility] Wound Care Noteon 07-29-2023 Wound Care Note [id number]#1. 00OTGTIFF [facility] Coding Summaryon 07-24-2023 Coding Summary HTMLBase 64 XqcppdtvPQv4pGf+PGhl YWQ+MT3TYBTkY00fjSJn lM4fX1FJXAvSAgsnLQGF OIyJIlNdysKzTR3rrRGq ZXJu IC8+HC7iQLKwJynddSVp a8U8jZM1O49cwp6uNAbw tLS7ZTPwJcQykqatu1qn fYf3YYxeQtadEqOw KOAznY54YVT9pP21Ci12 dHWznFJdo0rrxDu1AmYw NCDfSCZ9xSelWRuia1Zp KVHvV88lkHNxm7C1 IGNvbGxhcHNlOyBlbXB0 eJ7wHUuackijc3tchiom Tnr4ey47kWIsf1Z1fPN4 T8QafyX9MBLuvAUd FdbweNSFhE7wnxfjq3bk qhskStPwCLPsSYv9WKn0 VRAscBpfDeWeYS78IJS2 XRVwhrUfA4XbBRZm mRwxZcF7r3D9Hd6HF0ZI HqjtA7GVVJJPVLrfyFN+ GL60ms81B4EiDgnjFzq1 TOVaCQU8iFX9lC9o EQRjKGrjs9Q8kGX3X5Ls eiKocv9aq9kdEJSwKIdt P10wnDZvj9P8DWJwiIW0 DGLryIesArMggY38 Oyc+SUMonZrle8AiToys a5mtx3egjBe0OjoqXOIh jkQupUzkWZM8l6TzVd5l FDGipXJ4qSU7aZ4r TkSdYgF2SZugZ475DbCq sGMuZvxtK43aQ0EdrQR+ ROHwNlr1TMIbkRciKP3s O0CbZXCsiqglgXDu aLlpFC6ySPAeruixJMCd pR5qIEOnF6x7DfOyIkT3 TChyE1XhNJWicgncLx65 qF5vKhIaQoM0XHsz R4DkddB3HOBzcVGwKYga WLF9Z14uc5Y9LXUoHAXj WRB7aUY7kE5hiBmkipyk bGVmdDsgdmVydGlj BUfjITwtF407AMFkiOtg PkNvZGluZyBEYXRlOiAg MDMvMjAvMjAyNDwvdGQ+ JIQmDLH8zRhdUXCr zCXlWJggNx9ccJvjgEdc QT6qWCYgjvpxXBFlmF6v NVLiyVIpsLtoMU4nVWHd fgvjw649PfEhUPC0 FOXibEVzS1TsrX6aXxSh EFTpSXDaH2HyhJPyAZee V328OLltRiO5FIFxraAw P5RvHMFbfCseXuK5 e7T9Ka3Rb1NkwbwnD8Yn vJHiNcEyMyviMFb9M5Yd PjwvdHI+EJ96QLPfMJ16 BHo6IWI7jWzpUPiu BOFfX3ZtwW7fGvPlAVCh ZGRkOyc+PHRhYmxlIHdp ZHRoPScxMDAlJyBzdHls AX1hUv0qSVZnIXAi eCqmpNCwDlPcr4aoFGFy VUayGP1fxBcbA3ZssJV5 JSIkl0f8No71O24uY8Vk dXA+RYMuxHN9cLM2 tY3tJnCkMjB2XIoqI281 PoSgkODpQzlyy9fhc6pz zRl2FvY3PAFtjlUokWjz IDP2x6ZyTv46N75j IHdpZHRoPSIxNSUiIHZh eAhipi4eiK3qFc3+PGNv tED9uNP3uJ2sLyIoRmJ0 WBitK099ZcSzwRYh Tjsjr6tst9chvUt3IzEh BIKsaxPehEboPOF8n7Mg Jb43Q2ZvtRbzv3PpFmj2 ks66sXTxl9H3wAG8 M2EtLFOxhfdznVIviSpe YM5rKLUkfqogGIQmsJ3v MEIpW2d6IyPqQoJ3XHho R2FluqE6MILndMGh BOMldLPKsU6roqzfc4wj dukkJmNrYZFmTMz9YFz9 AIJytMfrFtCoKUX9EjB6 SIT1cBBvkJ9ukTdv wjeclW5tZsa+ZRT0vMJg lHGUTC0rOojpmRQ+PHRk NDT7tTdeNFqkVJDfyG4m LSZhK5z1IlQdAwY1 CMgiW2LbtpR8OMLcsQFz MXHmbABRuW8nixtzw3qr wmynXmViNTJnILb7ASk3 LWFsaWduOiBsZWZ0 BuS2PCS4wPOqzT6ldMmm vvioxK7jNzv+QmlydGgg AEK3PBr4A8WsFkq5DDFc zRflZB1ehBIfKOlr Ot2xzVgkjOkbTN9zZSSi fjbat053AzRyt9rzSVAd dKUtLWwdFBK8D99bg7X2 GSRhBWJqETJ6bZM3 hZ3wgUyrffkmwSTnpDow weHynWezOUvrCViiL896 XSVyhKneFlUxSSa3D5Od Tof5CQVhkIcxNZ3v gDInNVrbVl2szQzdjUmc IG5kUFZyfyqqp193FhNw v4zyEJTxuAGbVRqyDKK2 B16ut3K5YIYgUSPn HBT1nGA0zA4qmHepvljn bGVmdDsgdmVydGljYWwt BXceB869TYUlaHsmLxEy gKr4M7KxNly7JEPj oAzsGM1qxSNkVExxOj9t dOggkMlnTL7uDJBeeexn a176TrUmy8xkZCQrwBGj KGipFJC7Y90jq5F6 JQDkCNQpPGE2wQB1mR9a bGlnbjogbGVmdDsgdmVy vTbcYCntANrtB738WIVj cDsnPlBhdGllbnQg FXvzYSz1V4VhSzwinFX+ EF27HRYbYL74fMIwyQOs v7qwuYf4KkZzCIIvXNN5 bVakJTbrn5GrDHXj B61twXNuy3X3PCBjnJin jXVkVeNjcYG8hA0rMRgy zkyal5dxpabeSlstp9gg mh60dM47D66cCJuk ZHRoPSIzMCUiIHZhbGln gb2auK9bUr8+PGNvbCB3 fWB5jG6pOOOnKeY9UQbf P749BpBqrHJqVxyx u0yuf1cthGz2InF9TUNq hyOcxZxyJZC5h7SwZo13 G41zGKcyMXXfCZRuGQSz IVYtpQwawt0lzP4k Ii8+NOHhdNP3iUA3dR9j YxOoNnM7OXrkB428GeCr sAQmXorpU01iZ1UqnSJ+ LNNjOxq1PRScrFtx BI8rwRLfKBlkLv8iQVH0 FfJzXnVgBXleW8GaPYKi chewlpnohVE5GPXuEEFl jH78Cn0wjLwoWKBv iNIHeU3jrhttz2mgqxon TkAdKMRbKAo0UEt5EIId oBduAvOsPQG1LtL6RFV8 oTObkU7mrIxjxcdf lZ7sH3VxWMCbriobWw35 nM9wRoIvIbG4MRlqMjv+ T4LOUeawII4IQ3fCCMiy SzwvdGQ+PHRkIHN0 iGowDHcgJBKfuB9tKVMt E0o6MzPkVyY2KVxcJ7Dl UAEtzlgrLe93wJ1jDeNh FzR2XIihX8QwmrS2 IODdtEYjEDwzPWH0M28v v2W9ZGUuEAQiFXB5dMI0 wG6tyNfsfnovrTDjvAaw dmVydGljYWwtYWxp A977WYSdqNjxVqXyHzQ5 BgS0BaX3E3MqMhj4QPLj cNpoZP2boHHqSIhtUo2q xHpmjBidPN7aOMMg eumfJEZwuW0yXHPuiNLy eSmcKG6tZJZvrctxl590 ZuFfLUS5GEKbzJBiC6Hb wF3lEfNlTWKcHJTk R1PooEGqKPyoO221PXpx ZkX6YHUxqoWzK4JbNSIf dPchMjL4q4F3We50VGPE ZWFyczwvdGQ+PHRk IKA9cGrwUBatUBYlhH3w EHNaU8b7XzImNnG8RBkc H6IeCWTlnzqhUr11pR2c BrJkDhH4BFitK6Rx liU1MTQhyXMrLQffJVZ5 J30vk6O5CCBvQQZvZCF4 wBY6rF0ofCuquwklxVKf dDsgdmVydGljYWwt OGceE869WFDguXbeNp5D XPQ4Y0YvWov3RZYnjPwt JC4giEJrOOdsKk1leEja kMmqTC2pVYMwvwxc SNFjaV8dSZKjgVFswVzp TO2cWQLqoowdm536PxWz EZN2KKAaqNDmG8TgwM6q UiOzVZTbPYMzC7Gx zEDhRKmqG889LOtpQrW1 XISswkNhP6PaAVWfmJdw DxT0w5G8Hu9PHUbfyHD+ GB50ul08H3KuTaap Vqw3QGFgISZ7gAX6yG7d VXWwDRhjd5L3mJL8K2Po vvUadg2hy3soQTDmXUlb Y93hqLHav6J9NMUd bJL6FRZpmDkjEjExoV92 Oyc+GQAbgYydg6SjCmla i2hce5rbhPg2OeCkRRGq mqFjnXlcORB7l2Dm Na06Y22nWZfsYXYeHLNf HXJjANJqlNmlsw6slT2o Ii8+GKIjkDP0dUV3jQ9h BhGeGqS4ASvyS086 ZjHxcNXwSztog6hrb4wn jHp5KkTdDXVpyzXraMxr MUX0l7JsOq41S4KbyGas y6XnEri1jf35yGVw i2E1qOD8Y1PdJTOsuvne mLRmcNjvMS1jZLCiyloq NJBydF6mAKBpC3s5PwOi CbS6FLjhP9PdwzC0 HROonCQtSHSsnFCNdI9g hciky1qykvrwKuUbUNJh TFe6EQm2HZVdtXntUgQz JVN5EnM1GQE9rDKm fE8nhIocrujzzK6tOuz+ FTt0l4bbtTLnGO8rvTX6 QC19OL64kLBid7M6vIK1 C4FbXTNbksjwafot aHU1CCVuQWYykD85Cu0v dQxuOo7sJCGqADL2IUOh oFHyU9IsiK7ePwHwVSVw BCCuM0ZhgQYoNFbh G911ZCvbEsX8MKConnCz J3GwWHXacLlxOfD3s3N9 Io6VVG73CR56OH78sUIz o9F1xMG7T5OpQKNk nbqucrnnuGY4SXGqOBTr dC43Ao0fiOqwEb7xSPIb VYQ7QDPqoNRgV7EdpI2j VsXuEBIaPMDqR1Aa vYBvRVsnS279JSbbRoV4 YMXdubIvS2YxZYVbzXer PzX3k5T1El9PQu31KN81 BN86nULic4Y7mWE1 F9OgOWMrzdkkrocwmDQ7 MJXnPCBxyV23Lb5cfTlx Re0wALIwQSQ3PKBeeALk O7NqrE8sLdIoJDFz CGSzE5LcfCPzQMrfV213 SZmmYqZ1IQDfdaVkS0Dd EGHcjNlmScD2y0E3Bq2W TJjrhrm0E6SzBxcb dHI+VC92OVBlOV18vGRc kYYiw5jfeBz9AlYoINLh YGP6kKjwLPqbe5ZxYOEj H08myAGdi7Y2ETNn bGx (more content not included)... [facility] Wound Care Noteon 07-22-2023 Wound Care Note [id number]# 1.00OTGTIFF [facility] Coding Summaryon 07-19-2023 Coding Summary HTMLBase 64 PfskuqrxPEy9mWg+PGhl YWQ+PS2ALRMtG16lpVJi mN8hB5XWWEoRFhlcQTWX QXzVRlYinsAgMY1rjETk ZXJu IC8+OQ2pBLUcUbupnLAw c0I9uIO1H17umo5yEQzs fKU2UZOwBkYkoynbp1ht gCe7YZpzAbavHiBv CJSxaQ25AAI7fP15Qq41 fQGxzKSgj1kpbOv0MnMl LSWaFVK0pSbyHRcce4Bw DEBiZ52ttMXes8P4 IGNvbGxhcHNlOyBlbXB0 jV9tNLdpqnyyq9ookmcd Qcn7si20jLYzy9E3iEB8 N8YtphN2QIMwwTEk AksxsKGYsG2oqoyci2db ikpmLjDcOIQbAId6RJv5 YTEfcOmfWzJnAN37PZB3 EEMfdwZqT7VpKOHr uYckZhT5f8M6Mz8HY3DV HboiM7AVDQZLMAegnLY+ GQ16zd37H7IsFizdKco8 WLEyAZO0tEL8xA6u OTLjRCapg8L3oLR5J3Ez lyVtfc5ob1uuHDHeXTpr P74xqWUth0G8MSKcnEV1 XPQagClaLyEatB37 Oyc+LARivPkai4ItUtlg t6znr2iyvQt6KuunKBVe tzVbsVrzBUI0n2HzTf2w SWExnAP1qZU4rB7a DpKjEdY1QJttN510KkKu xKHdBexkD87fZ7CnkYF+ PYPyFpz9VTGetNlcCS0q Z1ZiVGNyltwdzGXn xDauAP3vUPOtaudzBGDl eI0vGZNhL2t3HpIuCjJ2 SFcjN3ViDXNkcefyPv58 uP9qHaXvTxK3EQob B0HruuN1YIRyvHUoRHpu JOF3G07yq5V6DHZqRXGx DRK6wKU2cV4wyIercvoh bGVmdDsgdmVydGlj HKryFUbrJ507EUFeiKot PkNvZGluZyBEYXRlOiAg MDMvMTUvMjAyNDwvdGQ+ SFNuZJJ7jUssLMLm tUZwPRccPm2fcYjcxNkc VL9lCOJmhebhCTInnH6v GRMqnXYgnSfxDR9fUQYo wumoe800BcLrTTI6 CBQvrXNeT2IqfC4fFwPr QGRvGETfZ8KqjXUkGCre Y871ENwkNiR7HRMlfbRc H6JaOZDqqFkhYrD7 w2F4Yt1Sz4SgsmypI5Qt gBIiEoUnIkjuUCt6L8Rm PjwvdHI+WC92VGQnLV98 LWd0SLL0kVkdWUjb EHAqI1DhgG4cYfChFVSx ZGRkOyc+PHRhYmxlIHdp ZHRoPScxMDAlJyBzdHls ZS7cWv2fOWEuEPBc xJaezJGpWcKnr0ekFBNx MWxkWV3uzMqdQ7BniLC9 VKGhj1g0De95T50zI6Zz dXA+VIAerGE4vQF1 wH2pAbIwKaI8JHejM804 GyZllCNgZumcn7qvu4rd qQq8RjZ3MAOsapXeoKgo IYN3q6HuZb96P98w IHdpZHRoPSIxNSUiIHZh lRewax5bfR3aRu5+PGNv pCE0jXI8cU0aFzHuPzJ0 VSpjE821LbGqzVRf Ssozc1npd1rnsJl3HoZy PJNsjcAsrThoVZH8n7Ks Qx31W4PjiIbye7JaSyv7 xn71sMXtj4Q2eGD3 W4EjRKJsybwueWOviAuw DK8wPXXkkidpZMSmrP3o SNVtH3u0SeCdMaT4JDwm L1JlxwE5NWPppSHx RSLylSKGcF5ncjwgb1hf hiftZgMtTVYfJZd6ZYl0 FVTzpCxyYuUcLHU4YaE7 QZD3xABdlU2irOug bfsodE7zLoo+BBJ5aUPp xPHBJD0mAyuehFI+PHRk WWL1vAyxAHkfDDNgsI8g JJJzQ9k3QeOfKkR1 GWomM9XkwlM5IKLkhVGr CTPmiNXVwN1yooqjr8fc cxedXqMcAZSfCKc1IYt9 LWFsaWduOiBsZWZ0 TjL3RKS1wGZaxG9osAcy hlkwrC8qKpv+QmlydGgg FBZ5HUc6W9AyWtq6IHRs zFtjIB4ycWOmWPuh Dw3ljHxdlNymUC6sJUAy qymbr405UuXcq4srMNHg oEJpDEroWCR5B94ad9V1 JEEnANMjDLG3nZC8 wK5cfIqnhhfesHCnhKab exRikQcsVOqwYUceZ599 ISLaoDxuOdUdMTh7M9Nk Neg8VYKnhCcsWY6p hECiZRdqUd3giUycaHyp UU4zWSScitojz008JuYu d0lfXYYksAGsFDffIUM0 P12ba4T1BCOmLYIa TLD6pCN0mE1drUkhuied bGVmdDsgdmVydGljYWwt ZYnkY949YKMqbTdjEmBd aNy6M0IcTuq6ABZw qXfyBB4aoFZnKIqcAq8w jGxcuDbuSZ9qFPQpeitg s521ZaOul8egELXblCKv UHzzJYO4W38uf9I8 RZAyCBHqZLR3qHH1tO7l bGlnbjogbGVmdDsgdmVy zSdxMVhxYNoyB064YRLy cDsnPlBhdGllbnQg IWdnZLi2R1UhNcjwqZX+ CG30RLDwMD51fOHkjYDr j4zxjCb3TvAmEEHdTHR4 oOzgMUuyz5NnARXh P26kuWDes4M6ZAJmkPhs zHWjMpUfgOT0vG9kNLuz ffnsz6ahgxuxYetve0qo jv14gT51M37iATif ZHRoPSIzMCUiIHZhbGln qm5elC2xAa2+PGNvbCB3 oTT7qU6vSKItBfQ3FXpv A977RrZazMAmBrpu w1ooy6gajGq4TzD1RUZq crDouZamCBF1v5DpCi17 W25mSWkgRYPiDXCrCKVq LISvfGlcib3osH3c Ii8+CYGrhZE4rGZ2lR6f RnDbVoK7XUylJ027TlXh dTNlOlrrY32lQ2PecRY+ YSTvEqt3JKKayDmy UY9cyGKiEParHv0tKBE5 LsKsAjTnLFmdK0OaQJGo drxxgybsqON8HTIpPNWv yN36Ly8kyNxtREGf mSUMvT4bejcuh6unxxsy HiJySVGvUNv3EPu6IRGp kJotEpPdLTH6XxZ5JVZ9 eTKeqD9naTwdpmrd dB7sD9QeQZTfeoxdEr91 qK7tMaAvGfC0KYohSif+ F1XUOoteDF2LP1wZQWla SzwvdGQ+PHRkIHN0 xKuyKCmiICCleD0gEZBp Z6u8XxDcEfR6GQlhW8Lv VJNhdlwwSt55fH0pRvOt SoQ9MZywI3RfesM9 BDGlvZFiODsbCRN1F61e w3F0KJNxRFWbOFN9sSE8 pS3bjUktxeyceQQieYnf dmVydGljYWwtYWxp U197DCEezCmbVcXhPgK0 VrC2RhN8P4NnSww6ROAj cYwwVN6ohNAcHJdnNc0d eHlglSxbAQ9yYWWb xolpSCNqhP8dNGAwoTXz jWbjZH0vSHXsegszl933 GhUzCAL4MGRqsODoH2Ze jC9iMsWeDBWlXUHl G3HmrGErPVrlG056XYqm LvI2FGJgtrUrL9ZdOSWz qUboLkO5z7X0Jx54RWQK ZWFyczwvdGQ+PHRk WHO8xQllCTrqJFQaaN2h AXIpK2g5NtEmTkD1CWnv L0EkAHNtmaavQq91mZ7v CpTmBpJ9JFxiA0Yf gxY7ACZylCFvIRyrVST2 C95km2P7VOYoBHYkDCL9 aHR5zR7zoTtajwjsxRYt dDsgdmVydGljYWwt ZXxhF193JECauWruDu9B OUP5Y9ZuSca2HAWwmLad OO7bzGGhQSrmYi9jxFmk rKlvXH9aSAIscvmy OTCzmV2sPZKrsECkvWqa MG7mXWPlnereg194KuBu XDH9UIVkwQKkY1FkzY9u OiHeZTFtGNSaY3Dh uGMtJEeqP749JJqeUtE6 NSEztiDwB6OhVFAtoNnp JwV7h0V8Fd2ASYstdWQ+ UN08ca70M8UwYish Qzt3AENyQIO4eVE8zC4u YAUzNQwms7Z0dKW5J6Ua vcHedd2sk8vbWWPbZSsh X64vfNUta7S2XRFk iDZ2JSRgcSluQwTxcJ17 Oyc+ESFbcDies7PpSzux m2qbr0uhpUm5MdOdANTq lbVhpEbxHPM2y7Gy Uo72B92fCOwlLMAtBOGi OLIcOSCnnOjlgp5lkU6f Ii8+YWRcoXE8lJV1mI9w LjHaUuH8QAdiQ662 GiNzeSGfIdvoq8zrx9yd hRh9OgBnCUMycuIaqDal XBO1a5AuWo27P0WqsKgk m7YgOtb7cz88wGBh x2D3dQB1L3InEJMajoyq mGUypRiiYQ8wLXHmskpl JTXpnY2yNGSqY2o4OsEi JrK9SChaX1NwxzD0 LKLddDMkNHDakHUQzA1h zbljw2jrzqajPdMzVWBo LGk1BEs6ZJJdxPnnSsMr WUB1NqN8VGK2dWGy lH3qvEqgfjlogP9eAlr+ LBs3o3nafXThGE9cmVU8 PH59VY28xVCac3W9dEC3 B5VlFEWyskxvrjpc tBM0FWTtADMmhA53Pu2y dOjxKu3gJYKvQYH3TMWx eILzF3ZscV7pPiSeQIYj ZBWeP7AyzREtPMlr B358QWkoCtA2ITUkpiDy T0RxOHWmnXcyFlF0a8G7 Le3LSW49TN29ME73mEGf x8M9fPM5B0EcMBVz evzacwxjjJJ6KCOgRCVl hP70Kc0vmBgyMb2uXYOm DPB5AFHvwNFuI0ZngS1e TuAcZDReXCWlW5Yp uLJsMFblP351SZovOcV0 SJOweqHjV2TzUFEwyYuh YkM5t2W6Ib2WMn68NM42 NL68jCIpu3M0hAJ0 B7ZkRTEcujxuggolzCP1 RCYyMGBtcU08Rc5feTrt Rr6rQJGhRPZ3HCInyHXm S3PclQ2uDiXsPEJr WNWjH1HwuFKwEYheC896 YEzfMbZ9ZRNtqqPpQ9Rp YYCknNroCaR2i0E5Nr3Q BLpigec7V9OpObfb dHI+TP82HPHdND75bONf tWOnn7wjzHn1LzSdSRQz EHC9xBwcRRqfz3SjCXHk X97tqUFjz2T2IRJf bGx (more content not included)... [facility] Coding Summaryon 07-17-2023 Coding Summary HTMLBase 64 HycmogcyXSl0wQy+PGhl YWQ+FX0LRXGgU35wsBBm fH1aP4UDSFkEPxcuXZDZ IXdTUyCtieTyPO2tiWPe ZXJu IC8+EE8zJXNgGrvqfVMb p2H0vUF2U09ibn7yJGka zTW9XGBlQbYoledxn5hr xBl9ELicZdhaZpOj UYFbpX59MSP9zL11Uj02 pVAyfZDcl6dulJw7LqBd GPBsNKH3vYyhOXdgf6Ha BAHnL02zgFUfm0D2 IGNvbGxhcHNlOyBlbXB0 nY8iBQgtjityl1dcinjr Wjy5af33dNSyt4P1zDE2 F8AqbvG6KPSoaMTx EutuhCNFbU0ormhkt9xa cnphHyTjNFVuHYg3MCf7 BCOkwXjaWyPgUJ44YPM4 JHIbjqKzQ4XfWPOn nRshGtZ2n9X5Zq9MY0JF MhcfB4LQCGHUFRpovXS+ TK26jl63N5SxSwdxJkl0 UUKnRJH5yRW6mV4y EXXrUIifh3K7sCY9N1Xh ahEnhv3js2ciFLVfMJhj P93myGOwf9P1XNFlwXG9 EIFhwPjlDjGvpM57 Oyc+QLYqtCgqn8EqHiod x3ypp2zfhHq6BeghDWKu qvTtpRelFLD9g0HwIx9x NIVdoER5zAM7wW5x IpOvVdB5COxnP439KhUb zERlKsvmX90zU4QejUB+ XDFtNqt8WQRkdPleLZ5p T9YqPLZllbypyJBh eUlsHK0vRTWgajarFVQr aH2iNXMeQ5e7OnEoCpY7 BAjwU7LnAUQcowqgJq21 sE6mBfSbSrT5ZDow S0StmuM7OFQbkIIcNVmc AYN6O22uf0Q3WPKnEFRc XDO9wFI0vZ0efEdxoxlv bGVmdDsgdmVydGlj TLerZDerZ386FVUziDdn PkNvZGluZyBEYXRlOiAg MDMvMTMvMjAyNDwvdGQ+ AKHlGOU0gJiyVKNh dWTpRGigMk2iyHrrlUdu DO6yQDSqsxleRWSjmL1b BKXxdLRonUnoWZ4yBQUf wkncw542BpKvDIB4 CSLvxPHsT0BijI0uSxVg CPAeLVEmU5JbcXMkJMym F576TWspIuK1BPNbwyGh C4XeLRFagEjgDxK9 u5P4Cy2Yb2QthrcrD7Dp xQUfWgPnHwqqIKw6S7Sb PjwvdHI+NC85MWEjPV17 PNi3CGN5xWjeZLug XNWxP4QdkJ3wZsMjAPAl ZGRkOyc+PHRhYmxlIHdp ZHRoPScxMDAlJyBzdHls SO6aXv6oCHEdHLMq uWibzSNiEvTeg9btBUMr IJqqGT7veYpyR2QzsZK5 BLWok2s7Ll49Z17gF1Xg dXA+WULhvUU8eAD6 fJ3bCxApEgJ9BAaxK718 JjZibJToJrjri1tyb3gq tIu1UtW3OJIdjhZbnRco JQH0p6XjYd18W46o IHdpZHRoPSIxNSUiIHZh nMmime7scM9eWn8+PGNv jMS0dUC8wR6qVgUyOaU1 UPwsP177FkTcyJUk Izwfv6rng7kppWn4WsHf DSTritSncEzuAQR1s6Bz Dx83N9NkwQgmd2DxQvz6 jd74eQSjo6N0xMI4 U7FuNDQsahymoZVpiGbh HH4bVBSbtbijUZSkuA6s TXOzO3r1QbKxNqX5ZTvt N5OysjD2ZVHckQUn ECBxgRXEpC6umzmnm8qj uxdkZrXsQMQaVSj8VLo7 ZOXisQtqYdIeZBL5DoU3 KQV5nNHexW9mjRyh ojmquD0yZet+XDN6pZPn cKSEUP9lQfxnzEH+PHRk NDG6pVtcSNonQGEirL4c PIUsB2y0DeDxPqM5 GShbC8JhwfZ3ALZwjHPq ACQqlUARgO4ieouwq2mk gyxbFzDgYPOaPGj9NDh0 LWFsaWduOiBsZWZ0 YhR2NSL2jNXowE3azGrx ltylrT4eYkg+QmlydGgg DOF4OOj3S6ApIfw2WVNk hTvpMV9snWAwBAqq Ha5ckOgpwQrdYD9tVXKj thvjy216DcOyj6foPDQs kJTyHGdcBXG0D23kx2L5 GVTdHCPiBKN5gPY8 oY8oaIuokspwmGNkiYvz wvOfxYmlVTegRBtfV022 ABQbsCwdKyZtOAy8P0An Ksv8LBZqfPyfWA3d iUEpPZzaDk4ekSbncMfl BV0hPCThyrjgg392SqSs x0prUTKjcNLmDChkIEH9 W82ko4D8UNWfKWMq BDJ3qIX1uK1tsKtbmzal bGVmdDsgdmVydGljYWwt CGpgO717USZsvKlaKyWd fLv8A6TeEtz2SZIw wYglQT6vhJQhQThtPn9o aJguyZefDU2qHWScrahf l971VzFxj0irQMHbyHVr JXroJNP0X33ox2D8 VEViPENhKCB3aAL0fS1f bGlnbjogbGVmdDsgdmVy lGtiEGrkLSovI662TZJl cDsnPlBhdGllbnQg IFqwGJs2D3QmHamqxLX+ SS05SINfNO08mMTxoOKw h1izyAd0SbIkPDFvFMC0 yOqbWTndo4CiUTLr A70jhJTat5T6BPApuVnb rUQzRxUezFO0fZ2rMSwq gjmdc9rsrhnjDfapk0mk wj09jO01Y74hYPhk ZHRoPSIzMCUiIHZhbGln ua1gkA7aGs1+PGNvbCB3 nDN0tG8rQHCnZjV0ETqb V112AoMnmUXcHnje y9wnd9rtySq2LlL0WWMa zfEbzUbpCBI4s7WfAv97 V33sTDxvHRYpLVWkXORf HAOvoKkmfn3zdR1b Ii8+ICZgbJK8bCB1jR8u MyTsIcN2DOiiK767HsLf eJRcBvmzV16vU6XviZW+ IZZvUrj6DMZkkPfv YM8nyWZyCMlcRe5xESV5 KwOmMqPpFFifE3HzZFPh ianeqkfdjBO9ZXFlLIRq tC83Tc9ncKtyHNRq cFHDjM4vorkyz0enivnx YdPkYXGcXWl5FGg5WQBs rUwsBiMiTUC3YkK8HWL7 mKYoeS6xnXzrdpya aY5cI1BfXWZxcjryWd29 dQ8fVnDcXaN2ILkvPau+ F8VLQfmaWY5PQ7zCVBjg SzwvdGQ+PHRkIHN0 hOuwAVapDIHvaU1uEUTu Z8h3EvNtMpP4XDfmD6Hi ALDtlczzOe58nL2zDhXa DzI1WEjsZ5RcqdB7 HMKzqXXgKQzqCHU9V57h m1H7HJCxJWZpQHD6oJS3 bX0xnYjnvupojNZzyQqt dmVydGljYWwtYWxp K568WUJcrAnfCoKqZsK6 RmN7QbW5S3QyAhe4EIQr qNdoJJ3jxNGnLTlcRn3q fIexcFilHW3vNJJx wtwnXNXtvO3sNLKwkXNf pPoaNF4uQAZcuqgys398 XoKfXIT1JETadHDqD4Wb jE3wDcHaCFIcVTPm V3AwjKCiGQawQ303NEks MpA9BVCstaAyY4BkVIUd aGjbZiS7w8H8Iy43WACA ZWFyczwvdGQ+PHRk KTA4lKdzDMxfOWPulG1r MWOsP9t2FvKgGzU5YWol B9KmHDHwrbosHc00oX7o NgSgVuW2VPjgY0Kg iwH3DZRioPAaVJaqWIV5 F71qu8H7QLSeEOUrAFE5 lKW6nC0ixFidcdvqrYLo dDsgdmVydGljYWwt KYasV664GNRuiAtjUp6S APB2I9KeZod8HXZmfDuq WC3vyNJzRGhoKy3qcEej vNcgQU1cKPYunegs USMveK8xYLDedIXygUoh SQ8rSWTqxdecc695SrRu ELS1SVJkrOZbS0GueY7k AoAqUCSkKKRkX7Cc lYOzADesQ013EKbvMrP4 CHFamsAkF1LnESVgrMrm IgG8r2E8Ef1FCXaelRI+ ZF53mf38F0BeLdkw Pwd6HYXzOPT4hXS5rZ7k BKJjONrvp5F7rUK3Y9Wh vkJlfh4rx0vvXAFhPCyb M22unLKvh9P5BBPa gEY7EEFedEadMqWvbC49 Oyc+HUJiwHyql2FzDchy l9yut0cmwQm9EdHvSUPr eqFvyMdiZPS7n7Bm Sh51C50jGWqyNNLkSOXi IJOjPRIglWtpev4wyU4s Ii8+OBBqgKD1wAZ6mU9d LdXsJcR7FXlcD509 MuKooJQeEwvpq6rhz5lf aEr7YvSfZMYtbjWelPlk MFG4j4IuTu55O0VhpYcd r8WvKkk1wb17dBYw n4Y6bZN0L3CuSDHjiqls cOQtlOclMN0tSXMedecw OYJjtJ8qCSLaO1p3MgVs JsK5XIqdI7BgnnA9 VDHwcSZbNMZhhGMDpL4o sroxi2githcjThZlUGGw IYj6CSz1SOAwgGwbJnTz RIL5KxI4VFE2xKKg vQ6kfUxzriwmiW5uScj+ NUh2y5pzcPBzKR0ybIS3 EH84JH97eWEzl6W3lCG3 F5TePHIqkyclyrlz aJG3NYDdWLTrfJ97Gv5c tVddSp3fVVFqSNL3OBOh jOSuH0ZujT2dHaHhJWIz MBFsS9XxdCNfUXqr P201SIikPrW8VHKbplJs F4RlABOjeTsjWjQ2r2K9 Gx4JBB40MK76LA58uTBn l8X6uGD8K2NgFUXp rijfkeessEV0KRTjSYPt hX55We0joIrpMg7iXWOf VLW0HOTelJTtO9TpyD0a FjHlNUGpZBIpE0Nu tKXmVIjkJ372OOrxTuW7 MJVrxlVrV4ZuHXHsnRuv QsG4a1F4Co4YAc08HT50 ZS50kSIxv2C3hUE9 V0WsGEJhgpgbfhlfnFR7 BHTmKJDpnF15Hl8lnRdf Dt3yIIPcJXP2MOGanYHx T5EixG9oRfQyRKJr WMAkP1ZlwTKjSRfjQ643 UGtxXwO2DLGyruScO6Tu WEJgcFacCbT5z9G0Iu2R JKzjrhc9T8TnPprm dHI+UM83TGQdBS19gZWs eVYrj3zrbBx4EnUlJSLx KCS5aSpgGKazd3HuUZCu S29enIMog1I3FLYv bGx (more content not included)... [facility] Coding Summary HTMLBase 64 GgzdeeeoJMd2nSw+PGhl YWQ+WP9TGAOjY63kuRLg iL7lG1TKXLqDBuzzMYOJ RAtXFpXasfLqNL9wxTKz ZXJu IC8+OE2cJCIpCndyeQNm h3E5fKJ2X74wqy4sYPwp pCD5SQOvMoCbeuhnm8ox mCt8LOgiQugoUfPg BAJzxZ60ABN7qY95Hq86 kYXqzCIcc5czkCt8SnMx WFFcWZZ3yXzvSRwdc2Sz IRWeZ32gqVGuy6Y3 IGNvbGxhcHNlOyBlbXB0 kY6zVTthienca8dwtztq Rsz7zk74mXQva9W7mXJ8 E8EmylN7GBNxxMCd NjzxfDYUmK3aqpfwy6tj lnayTtFbSEPmYZo5MSq0 ECEnmJybQmMeNF32DKO2 BMCyjjHcX3LpJOWf dHhhZmL6j3W0Eh0UF8RS AhiaC8ONTNUBLOewzYP+ TW94uc75V9UuToirZnz1 IBLeNCQ1fHS6fZ7c CBVsOTxwo5S5sVW0Q2Cj eiBdcf2ue3wmDYIqFTop E35nvHLya8E6LEBonLI0 XLRplYjxQzTyzW53 Oyc+KAIsiBcsr7MlSklc c6iuk9xngRl0PecmJROf luUxhMyaSFU7y5RxPw6c YYIveXF6rZH5bD5q GaQfMwG9GJudP686UuQd jBGcGuliD60uZ2UajGW+ QABhQsq5YPMfcKquWC7h C0HoCEXlmlukuDGe kAqbQJ0dDOOczdigEHOg hD7nOTMsM9p8XsXcMlJ5 LWwnW5KzNZNmijloQf99 zC6wRfJnJhA8ZOsp X3IlrnS0FPDdhVGmOGcb WXX0H64we8A1KMRvVDRj TPK5qJJ3vY6zuXmhgegi bGVmdDsgdmVydGlj KWlsKMicB737JRUdeNrc PkNvZGluZyBEYXRlOiAg MDMvMTMvMjAyNDwvdGQ+ RAMqPKN8dPqaMUVl kEEwEVapAi0yxWtctRca ZX9aZNJkepbtVWDbdN8u YGYqyGQmxPcfJD0kZMQe dvijr634GrMhMBT3 NRRleWEmJ2DioE7qAvWl QRPbXRJvX0ExoXEeAFiz O492ZEydInW4ARRohiPk A5VlOOHigHwpWwB7 o1L0Ic4Pm7FcglfmE2Ov aCAyMzXmTvegCJn9B1Hz PjwvdHI+VE73REUnFY06 USy3GBY7hJxvIMyl KRGlV2ActR8xDgNhFXBj ZGRkOyc+PHRhYmxlIHdp ZHRoPScxMDAlJyBzdHls RV0rPn6jVSVvMSJc nIrsrJTkUkRaz5xbIXZh AHxnJZ0ajJisJ7AyuBX8 SVEni1a2Cj63J28pP1Ym dXA+LTOgkRI9tAY8 xC1sLqKkKrB1EOzwV310 IqNhlJWgPclbv4azd6xo yRw2TgB0NZAhrbZtgQko SDU1h4JmXk80X91d IHdpZHRoPSIxNSUiIHZh wMsvqp7aeA6bRe5+PGNv wZX9lTR0cQ1fUtKmHlX9 KRmjM345XxLjcPZl Spjrv2qex7mfbMi0PzKa JPQuviIuzBspQWL3x8Cz Uc09S4UcvCcmt0YcLrt7 lv80eSDlg8Y4pYD4 I5IoSERvwaeyoFFlgGxx JF9jFYRqeefgIGWybR5r DUQfN3w7PzHfWeH4NMzl D7LtelH7ZFZigTOr LSWcpFAPdL5kbwkxf0sh kxluInYaNKOjXEk5EQd1 GSDbfImwNdQcTTK4FlY9 LMO7uQXojN9hvGvy vdfxpE8tYtj+RPE9rNFq hISOHZ0qDhspbIV+PHRk RDL4iRvjUYbcZJWyoM1h UJAxB8o7UtKyUcP4 VBdiP6VfbkN5DEAnlEXo FHMpzGFFvI9cqlgex1vy zsssCkVfPNFpDHu3ZEs2 LWFsaWduOiBsZWZ0 CvS6TYX3kSHrfH8vvWtl fgljzR3vBwo+QmlydGgg FLD0IKw1U4AaCos8WPYh qQbcOL6mvOLjPKwb Lh3scFmxwYtgIU1sZVBw snhub136IpSkz4onVVHt jCJzXGamGRD8Y85ws3L4 UWHgIQTgCDB7eOH0 nH6itQdpfszmdVJmqWnb xzMkmXbkSWpqXDqfA619 ANResWwfLvBqWIi6V0Ga Ehd5LRSeuSyuRH9s xTPzEPytDf3bcXdkoSzt PA8gMNAqpjens973RhDz w5fcUEZhrZQcFVlaVNZ6 S43co6N9AZKuTYVd DBD0iZR0oM1oiIjhulaz bGVmdDsgdmVydGljYWwt QOyhF870DYQdaYtoXbNd eYw0R1EyKpi4TXMu mMerCD5rcOQfIHaiYi7g rYsdcCmoNY4uJXSyuduj j813UpTxn1bfJUFinNAl CWhtEBV3I46mf4D4 BUVnCKHpOWO4jBX4wM4j bGlnbjogbGVmdDsgdmVy dAelXJyuFUwqK909IGNb cDsnPlBhdGllbnQg GAvbYGp8Z6ZuIihuaJL+ RX08PCLoDD49bOOtaDIr g4cxlWs8JgFsNVUnRVX5 pSnpOFwpc5PqJWZw V49sbEEbf2W0EGZubKyj pZNsXdUzuGG0dM4lJDyl nukxt6rhopaeUdhql5ku ru90kE26O39gGOrt ZHRoPSIzMCUiIHZhbGln sq6aqI7cWr1+PGNvbCB3 cAJ0zK8tFOJfZcC5LGcx H165WjEnqNDdIwvb j2mlc7qwkUp3MeT9MOQf jkTozHupUTH7f1HkVg53 E19zSXfgSXFnJHBpAEGv BMDhdQdgaw4lyQ0c Ii8+PJMkwKF2pEY2eJ5w JiNtUaP0RDzeJ281XxXu hDWcHlgpO18uQ8BgqFS+ METbVtx4BBHevFuu PC1hcEEbNQrxFv9bYMB2 MgOqBbNhNEqxC4MzJZAl ubqsufhlqSJ0ZOVuZCLe oD64Yp9zhIveFYIo bIFXvO4phrgns3ikhavz ShZcXIMsHHt4ZOn3OPQx mFwkAnDzLOY9EsH7FQF9 vATylX5zfHdooivd yC1uW0TsZOSpmpplVi37 xV8fLvSsEcP4GEqfDhr+ H4WQNvxaTG2VR7tNJMsl SzwvdGQ+PHRkIHN0 fCoiRKpqXTHktY5bBCZl V4x4VqWxAqK8DLvoF2Dz UPNlrpqcDr97sA9tUjPx KhD7TCzyS1EnpbH8 EQTkeQLbYRkpHBQ8I89a d7S1MPInNGCnAKY0aFK7 vM0mtTokynnwnJMazMpx dmVydGljYWwtYWxp L175WKIvgXiwXwArLaG0 WzO0UoO3L9CcQza9SUJw xFnyOG7wxDJnTVnvAk1o cGajqKtnAH8tGMFn orgmMVXuiN5kHSVkhTQm kZurMG7sTZGlqrjey500 HeUxLUV9PJClgESzO3Xa fQ0yFmIaVEEdXVQs K4VzbYFsPWqbH668GUxy BdN7ZKPqpsTyI4PcCLEs tKxvZqM6e8Z0Vz34PKXI ZWFyczwvdGQ+PHRk LBX7cTvjQBwvBGKwcJ8f WGChO6w2RsHrLtH1SZia V8MpUSBcoglsDz78zH6q JqTsRhY6ZFtkS5Wv hqD9WOIjkFNwMRspDUV2 L73kj3S6EZHvWPZsWQO8 rMV5iD2giSysrrfrlHZi dDsgdmVydGljYWwt YHyfC757YZNgjFjiRq1R XRW2V3ZsPzs0ZGByuZxr XQ2boUBoFEvdKb2wuZvj bHbsAY1lPUJdqiad ETPwzZ2vRCWulKUbpPbu PR4zTJNtvnrqr402NvFs FMI7TRHvnEEbO1UrxN0u MfXtYUHuCBDfV8Ds kUUzGJvqP613BHvtApY9 VENxekMjL0DbVEYagSdv UbF5n8F8Cz3VSJdckFC+ BH77gf93J3AyGjay Wiz0QXMqEUB0wGM5tM0f AADqOKzgb9Y9yKI4U9Ws mcApvq8hm8vpQYZyLEpc W52zvXQuf7D7MKOf qEJ5NHRlhWetScHdlP57 Oyc+NVFzgQxtn5VqGijg a2uua8yhjCj5FxItOAEg baZizSflBRI8v0Gv Ec81A02hMCjhBWNeKGPd PHOmFJHffXfrel2zdX4q Ii8+QNGncID2iQV2zF2o XqGvOiU7YRqoO767 FnPxvSLyRbybn5raj7is bFh6AgBfRDDpwhEszMrh FSY4z2UzBd97U8KlbTkw l1CjIzv3gt69cMBi z0H4vRA0D7RfLMLaeifp cNAwlDaqAF2rDYEixcnk VYRrfD9lVFWnR6y7OqEc ItL7HNloI1BsqiC8 AEEnvWNxAGUzgNOZzO3r tebmr5yagcqjGbOqFQEm RWh8KSj8RWTidZncMdTt PGH2YkB7VOD2wCLc nL0vuAkofflyiI7cKvv+ RFt3m2ugeUJlMH2mcXC7 QG68IO50uHLup0N1pIP8 I9TmZPRiygfivufg lFM2MRIzMDGfaY79Vb4v dWkkGe4iEXTxOMG6WAVg iPLuE4JfpV7bSmXkNORh YAJxD8NqqERlAIym W635VYiwIwZ8KGHedvJz N3JgMMSwtQpjVgE1p1U2 Nn9YLH17RK72KE49dZRg m6F6mQC1T7IrJXIx erouskwfzZI4PCPmQWCt oG41Fa1guQxqMd5nYZQt QFM2BMAptEGtO6ZuaK3u WuIuFQJcCMJdE1Ck lSSxKWzoH741NBmgVwW0 MNOgolSbZ8GuLFKfxXgr MyE8f1A1Zy2NQk37NS28 VD21lPHtf6T4sZG5 R1NnKGVsrwfkdtuaiCE9 CCRbZVFkjB76Mg7kuEpt Ks9rIJEkQZB8MNSpkESq N3XngV3wMfAtHXDn TUCmB7JghBQjJFmfP869 CYixAgQ0XSQzuwHwS6Dv SMTopRftPoP8b3A7Zw1Y CHuasze4J2XcLnwa dHI+YD74YUBkSS61rEZv kHCwi0ovxZk6DzFyYXFz ZUP3bFoxGIhma2GdLDUd F27aqCIdb3G7GEPl bGx (more content not included)... [facility] Wound Care Noteon 07-15-2023 Wound Care Note [id number]#1 [facility]-10-[facility]23 Consent Forms [id number]#1 .00[facility] Outside Recordson 07-10-2023 Outside Records [id number]#1.00[facility] Coding Summaryon 07-09-2023 Coding Summary HTMLBase [address] HilluwmtVDp0tEp+PGhl YWQ+CM9HRMEcG73fvXYp bX9qH7NRTXnZRsrqHIZR VRxKGlMwymKyTA0msGPv ZXJu IC8+SK7nLQZmOgctoLHa g9S4cWC9U41keq7xJLap zTU7AFVdJjWyoafhc5ft mWu0VVjkPmiyGqRr SDDziL63TBK8gQ46Iu42 mSOgfYIce6dwrPl6XzFp JEZsAPG6gFopJSgty9Bc UVKgU41aaHGcw6T9 IGNvbGxhcHNlOyBlbXB0 bA5jZMojovjsi8wspxyk Hcr2dk37yBGno1P2zON5 V4SvzhD8KAKgjAGl OoxefCAMmT1vxwivw9pl eqgtFfGtLFNoBOa1KRy5 DYFcjMsdFcOjTR55FGD3 MITxtcLdP2RyVXEi yBhcRmH5e2E2Vx9ZV4QU OmelP9TYHQFSQCqddZP+ GC89lv47D2JvHrfpTso1 LAPyXUF5zDY3jO4k BWStSWmzs2F5eLT6S2Dc ksRzhg4so0abKSOfHYpi R56shQJbe3T6NIAnbCP3 GMEsfCisBnUscY85 Oyc+OYVpkMxpg3VkChny o1lrh0uyyCp7KtdaZBNg mbGqdTxgOXF7d8KqVr6s HJIwwUG3tDS7qY3o UbNcPnD7BYjqH893KeFz pHVoFkkbU17oT5HvbEU+ PADdAbj7BRFwwXglGC5p Z1ZsBKOmmriqwORd mOwzJB0vPYYyeoabTHQb eO2lTKOiA3l1NcAvAqK0 QEikB9XdJABdyojsPq31 fI0vYtPaGtR0CWhh M8GtyaJ9UUWvuZQiYSji XRQ8N56bk6U9TBWvVTDy MHV3gQH2jT1gqVspfqlt bGVmdDsgdmVydGlj RHgxGRxiU539ACZddNhv PkNvZGluZyBEYXRlOiAg MDMvMDUvMjAyNDwvdGQ+ TMBrRTG1mGowFBCe oIFqZZivEx3bcTjauUki CT6mAQRmjghtGLNlaG0t WAPesGFhzWnpDQ3bJFOz xnosv726IgZlIXT0 VAAivPQlH3OjhR6xKmAz CIQkNQEuR4LwcOCeDPqf R487OViiLaH0HAIpbgCy V3TcQPYyeVodNnI4 n6T1Md2Xb7WuifogB5Ef iDFyPqGfOeceFVf1K1Kg PjwvdHI+GM43MLKuHL32 YQr7MHF9sWzlCEal PDWuA1JvdC6oStZiKIVi ZGRkOyc+PHRhYmxlIHdp ZHRoPScxMDAlJyBzdHls NX1oFt6gPTZsQMQx zFyruPReAzAnh6ztSDOx EWedLD1caDfwD5UawXL8 MTSts4l0Bh07U76sM1Lf dXA+VUSbdHN7uUV6 vG7iLmArKxD9KYniO949 OgPvfHKoTknpt9djl8fv tJw2EwN7SVSpbzYppIwz BDF2j1YlVs01J68m IHdpZHRoPSIxNSUiIHZh qCedsp5qrU8jOf4+PGNv zYD9qEH7uT0wIbZhUmE0 BLmzC632HfWbvIUr Rjjub5jun5qrqFt2TiHk VRZdyqXemZncVTZ7b0Zz Ts67Q9BruQwvz9OgAzr5 jr77rJMxz1Q0lJA7 V1SmVYFihzwhkVLheXyd EV7aWUIfewqtHRFcvJ2p UFHdH6i8DhEjHqJ7LYvg E6BtavH3HSXgbRZp LJZbtZAGmA5wpdcdl5sw lazxLcEkWJTnGXg9XCm6 QRIanLcdJsZzFTE3NuE6 YTY0lEIxmL4clLok kxhdhO5eZlv+FKZ7kTYd zEDTZU4xPleaqKL+PHRk KCI9nBuxANrnSUXpqJ4c ZILrK7h5WuZtBnQ8 BLwsC1WhzfG9HMSvkCWh KLFmuLPUrG8ntkorh6pt hoszTpAdIXLaMPw6AGy6 LWFsaWduOiBsZWZ0 DyH2LXC3bJUgjU9tqAel dzyawL8nHql+QmlydGgg TLR9YRf4H3YoXed2PJHe xOilFM2xuODlTKxj Ax6ziQbjjYklVR0xNSTr cydyk006PeBlg7yoSCRc fXKwYKwzPZU0X85uu9U6 KDWrKXBiUMZ8kGO9 uG1ylNuofoyupMWrdWhc sqGoaJdrBTngVVpeG793 DBUwlWyjSqWpNGg9Z6At Eys3NKRotAybHJ6y xWPsFFtzMb9awWaukDyu HJ9dMGRgrvtit213CcOs e9upMYBuqOPoUWwhPWH1 I70zy0Q5CIMsGPXc DHS2bEG1nI4mySuvayvk bGVmdDsgdmVydGljYWwt PLxxZ420QHTztEckRzOj yLk7K7UkRiv4CERl pJrxEH2yaLUaUMnmAd5a rQbjgQuvAZ1jUKZyijuo j218ScMts1yuRKEwsAXb OPpjBDP0A34qd6E2 YUQwWKVaQKV0aAO7zA3z bGlnbjogbGVmdDsgdmVy xUmiPAgcKFimE642JLLu cDsnPlBhdGllbnQg NZpbIUk8G1GzJcpznWF+ AA95ICZxIZ31cDKqgCDi q1dbbXf7LqHwIYOtSXS5 uIzcBOcyr2KqRFAq K95iqHDmx7R4CCRibOep hQWzCsInkMV8iJ8zAMbz jwtvp6rkpjlgDesfj2mh zc68wD77V46fZAlh ZHRoPSIzMCUiIHZhbGln bd2cjP7mXl3+PGNvbCB3 bVA1fZ5xTBUlApV1OUny S996SmLmoFVfZrjv g3fvu4dyuVz8GyG8IRAn wyZohTszLLT6v6LhKp27 V69xZZjdYILgDNSrICKt SEXqiPjrxo8ttZ1q Ii8+GDAvjQM1zKS4dX8d EaAwMdH1YKrqJ341CyKe xYTyNufsX36bA8QngMW+ JYZnXby3VXMorUiw OJ4wtXZoUNrlWh8yPTY0 LiSjOhDiOXlgU1MuMZXp onlzgesqxVE8MTJnICYd tS11Dz4fgPlsQREk ySUTeJ0zirckb6adpwvb OwDkDKCgTMu5AWw8VHCd lFewUvAuUIL8EsE7PNT8 lVEwcZ0txOodelnz nM2yK6ShSOPfurawSi87 kW0jZqJiJxW7RFjrMzf+ D2CZAetcJW0WS0yUQDqi SzwvdGQ+PHRkIHN0 vRklCJfyHDSuxK3lSFVa W3h8BiBkRtI3OOkoA5He SFDqbylfAh74lM6pFpMd JxF1CYyyZ7DcclS5 QJTdfYHgMZcuGJA7A02h g2D5WESzTJFgRYE5vQM1 jM7qnXazmpkmuMEupUxg dmVydGljYWwtYWxp N853VAYdwGbyHiClNuA0 IgO0IaQ1A9JnWna9BZYt xIlkBR9flDGdQGwxZh1q uFnenPoeRB4mDOJg qvglEDGktG5vHRAcpXOn rRevIV1hHQPqqnkye494 YeZwDIS2VUUplFMoW9He dM0nEnYdUCBnADRv N3MxpDJwDGzuQ842FVyf UpR0GBSxhyTaG0LnDPKf cJfaRfZ1d6F1Zb35LGOS ZWFyczwvdGQ+PHRk PCK6yWmdQYqiBPXvnS6h RDYuN3r2FiZuPjX4UGgt S0WjRWNnszyoLo74eK7h JxApPhS0TDkdM6Jo stB7CARdpTLcYSglCBN4 Q18xq0R9NEZsOVLjWJJ4 zFR0oB6izVmljqjgqSSq dDsgdmVydGljYWwt OUpcZ537TKFfiSinYg5V UDR4L3EwMkg1YNHbkLac FJ0xkRZzFMnvRk8esWnf gLxfEG8yVRKufqpr TXInyK5wKQRmcHFtkEpg FD3nDDGjchzld196UjTe VCK2XEWanCVrG8RyoL2x CoCrCASwQUYaK3Kd rMQzVNsyO797XXemEnZ3 LGMzdzXbL6HdNSOblHzn GqD0x1M7Ah8TZQszqXA+ UZ95jl26I2XvLdpn Uca6JFDeYYZ8vOY6cS6a EPLlMSpas5S7aAY0C4Zu ejBvoi7qb5aqLYLlUAuu E58yeUOjh4Y1DGBf uDT2XGVypQpbTwCsoB01 Oyc+LOMvpCjjd9ZeXfet v3eee8kboTy0VaQzTZIg dmUmsPuiYDQ7b0Hq Vy04Y86tISnjCVZwWHTc GGFdDYHzvWurzd3kcH2y Ii8+PBGhvNS1vXL9lI2f UvLlUrW2BDhuR445 XfIhxJYeWpovc5chw4yb yBn2FbEkZAQsuiUggRzb COT8h4DlTk96C3ZvfXev t5KyUbb4dg06tHHt d1X0lUU7O3XrPFDbszvv oQJjnMjvJZ8yAJDwaasc HUHacL9tXQMhN7y6PvIn ZfN0UKykV7BjxmK0 PSJflFZuRXNcsZNKvD1m dlmxl3dyumzkMsPeLJIb HRq1ZAc5WKQanFjxZzNm CMA0TgB3EOK9kTSx nP1qxMsqfixdqI7mNwd+ KVp1q4rrdSZrON7yiJW3 FU32JR30wBHvq3B6sKK4 F6QeOFNqyugmjrvi iMA7GTOwBZCpcF95Bg2o gGjxVv8gHHYmSPX5JZBl aPTnR1AbxK5xFiBhZFBf DVUsZ7VexSObCQje P229SPjcXlS2FLOfqwVm C9AhUMZhoVbtXvX9c2X9 Pr5QJB26JY84TH45jCWl k8H9uYV0B3PcQZPm vpirxfupxDQ6VNTdLDGm jL61Yu7kxRhwBq9pNYPa RGM8XQXddVEhT2ZjtH1x UpLmISRcOGEgK2Af vGMqSCsgU598YLapBsG5 RPCctgNeE4XlDONnyJof JsA0x5F6Dw9JQe03YQ42 HO22kMEjd3V0lUU3 Q6YvIBNzduzuqyysnUX5 VPCiVVWemX30Le0ptEpl Ak0dOWHkEDB8ABCdwYPo T0TncX0dKdLlDXNz ENDrZ2PfxNJxCYppR444 WIuqMbE6LDZzusRsZ2Eb MKKzvYiuRmQ3o8C1Wx4E OAcbned3E6TxXezp dHI+TL74TEDoPB48eXSf hFNsl7zyfPd3NgZlDRBv RZJ2iBwqVOprq2OiVMQt A32bhKFel7T7HZAx bGx (more content not included)... [facility] Wound Care Noteon 07-08-2023 Wound Care Note [id number]# 1.00OTGTIFF [facility] Wound Cultureon 07-03-2023 Wound Culture rt [...] <=0.5/9.5 Verified Vanc S [address] [facility] Comment on above: Performed By: #### [id number] ####[facility] (DEFAULT)[address] [place] [address] Ambulatory Patient Summaryon 06-26-2023 Ambulatory Patient Summary [address], [address] - Visit Summary For YRN RICARDO Age: 63 years Sex: MALE : 1960 Address: [address] [place] [address] [place] [address] [address] [place], [place], [facility] Home: Work: -- Primary Care Provider: LESLY MELCHOR MD Race: White Ethnicity: Not or Language: Somali Health Plan: 1?[facility], 2?[facility]ICA[facility], 3?MEDICA[facility] Reason for Visit: Three month follow [...] problems; contact the Mental Health & Recovery [facility] 26/11 Crisis Hotline -Text 4HOPE to [phone]. Follow-Up Information With: Address: When: KAREN ZAPATA, LESLY To [facility] [address] [place] [address]/ [address] [place] [address] In 3 months Future Appointments [facility] Appt. Date: 09/25/2023 1:00 PM Scheduled Provider: Lesly Melchor MD [address] [place] [address] [place], [address] Future Orders No future orders Additional Goals [...] Dosin.000 kg Body Mass Index: 50.14 kg/m2 [place] Body Weight Calculated: 84.047 kg BSA Measured: [...] TABLET BY MOUTH ONCE DAILY nebulizer machine ([employer]) 0 refills authorized Instructions: one [...] is caused (more content not included)... Normal [facility] Patient Handouton 06-26-2023 Patient Handout Infectious [...] and keep track of them. ? Take fpjj-gzz-ngbolcw and prescription medicines only as told by your health care provider. ? If you were prescribed an antibiotic medicine, take or apply it as told by your health care provider. Do not stop (more content not included)... [facility] Outside Recordson 05-15-2023 Outside Records [id number] #1.00OTGTIFF [facility] Device InterrogationOrdered By: Rosalind Murrieta on 05-14-2023 [facility] Study observation (narrative) [facility] Ambulatory Patient Summaryon 03-26-2023 Ambulatory Patient Summary [facility] [address] [place] [address], [address] - Visit Summary For YRN RICARDO Age: 62 years Sex: MALE : 1960 Address: [address] [place] [address] [address] [place], [address] Home: Work: -- Primary Care Provider: LESLY MELCHOR MD Race: White Ethnicity: Not or Language: Somali Health Plan: 1?[facility], 2?[facility]ICA[facility], 3?[facility]ICA[facility] Reason for Visit: Three month follow [...] alcohol and/or drug addiction problems; contact the [facility] 26/11 Crisis Hotline -Text 4HOPE to [phone]. Follow-Up Information With: Address: When: LESLY MELCHOR MD [facility] [address] [place] [address]/ [address] [place], [place] [id number] In 3 months Future Appointments [facility] Appt. Date: 06/26/2023 9:30 AM Scheduled Provider: Lesly Melchor MD [address] [place] [address] [place], [address] Future Orders No future orders Additional Goals [...] 3 m2 Body Mass Index: 47.09 kg/m2 [place] Body Weight Calculated: 84.047 kg BSA Measured: [...] Body mas (more content not included)... Normal [facility] Patient Handouton 03-26-2023 Patient Handout Nutrition [...] numbers. This can be done either in [place]i ([place] or metric measurements. Note that charts and online BMI calculators are available to help you find your BMI quickly and easily without having to do these calculations yourself. To calculate your BMI in [place]i ([place] measurements: 1. Measure your weight in [...] for Disease Control and Prevention: www.cdc.gov ? [place] [employer]: www.heart.org ? National Heart, Lung, and Blood [place]: www.nhlbi.nih.gov Summary ? Body mass index (BMI) is a number that is calculated from a person's weight and height. ? BMI may help estimate how much of a person's weight is composed of fat. BMI can help identify those who may be at higher risk for certain medical problems. ? BMI can be measured using Somali measurements or metric measurements. ? BMI charts are used to identify whether you are underweight, normal weight, overweight, or obese. This information is not intended to replace advice given to you by your health care provider. Make sure you discuss any questions you have with your health care provider. Document Revised: 01/13/2020 Document Reviewed: 11/20/2019 [employer] Patient Education ? 2022 [employer]. [facility] Outside Recordson 03-25-2023 Outside Records [id number] #1.00OTGTIFF [facility] Outside Recordson 03-18-2023 Outside Records [id number] #[facility] 03-13-2023 Outside Records [id number] #[facility] 02-11-2023 Outside Records [id number]# [facility] Summaryon 12-21-2022 Ambulatory Patient Summary [address], [address] - Visit Summary For YRN RICARDO Age: 62 years Sex: MALE : 1960 Address: [address] [facility] [address] [place], [address] Home: Work: -- Primary Care Provider: LESLY MELCHOR MD Race: White Ethnicity: Not or Language: Somali Health Plan: 1?[facility], 2?[facility], 3?MEDICAID [facility] Reason for Visit: 3 mon f/u Prescription Information: If you have been given a prescription for narcotics, seek immediate medical attention if you have any difficulty breathing or any sudden status changes such as confusion and sleepiness. If you or anyone you know is experiencing suicidal thoughts, mental health, alcohol and/or drug addiction problems; contact the [facility] 26/11 Crisis Hotline -Text 4HQTH rg [phone]. Follow-Up Information With: Address: When: LESLY MELCHOR MD [facility] [address] [place] [address]/ [address] [place] [address] In 3 months Future Appointments [facility] Appt. Date: 03/26/2023 10:00 AM Scheduled Provider: Lesly Melchor MD [address] [place] [address] [place], [address] Future Orders No future orders Additional Goals [...] 371.897 lb Body Mass Index: 46.73 kg/m2 [place] Body Weight Calculated: 84.047 kg BSA Measured: [...] for 5 week(s), 0 refills authorized Instructions: [facility] HFA 110 mcg/inh inhalation aerosol (fluticasone) 10 refills authorized Instructions: INHALE 2 PUFFS BY MOUTH TWICE DAILY *RINSE MOUTH AFTER USE* levothyroxine 150 mcg (0.15 mg) oral tablet (levothyroxine) Instructions: TAKE 1 TABLET BY MOUTH ONCE DAILY LORazepam 1 mg oral tablet (LORazepam) Take 1 tab(s)(1 Milligram) Oral every day anxiety, 0 refills authorized nebulizer machine ([facility]) 0 refills authorized Instructions: one machine to use with nebules [facility] ([facility] Prescription) 0 refills authorized Instructions: Wound clinic. [...] to displa (more content not included)... Normal [facility] Patient Handouton 12-21-2022 Patient Handout Orthopedics [...] walking or exercising. ? 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 ? Vdbrw-av-tsjfqa activities. These help your joints move more [...] area above the (more content not included)... [facility] Coding Summaryon 12-18-2022 Coding Summary HTMLBase 64 TfqkqwshUKi4qWa+PGhl YWQ+PL3EWPWiF65lnACf yA6oA3RDOJnIRvfoHYCO QEbYQaXvhlOvFG9qbJTx ZXJu IC8+DA9pFDSrEwwuvIMd k3U8wPZ8K12hrq9jCUtn vPQ9IERlLgRxsgltr0nt cPy0COuyVvjfGsGg LXDfdL29JVF4zM99Su10 rEAbgHCbs0llyWu7ZfUx OWYzZLC1oDqgTXili9Pm BCWjE44pxYMsm3S8 IGNvbGxhcHNlOyBlbXB0 uX0eRHlqaergq6dfwppg Nun0rl71jDUin8W5nAS8 F0MybbO1QZNctBHt LwwlmVUKaX9iheika3bu tezpWeBwKNEpIKc3KNb4 GLIooLdqGfAmBQ35ONB7 HBHsbwNoO1JdEYYy oIhsHiX7d0H5Um3IM5KF NkzdQ6YJOQFPSSnbcPF+ XV33sp81K3HaCuutDib3 ROZvPOT3vNT6pL6g OYSbNHotx7O8hEC2A9Ta ofFqpa1mw4tmPYVhZQoj Z06acSBsb9E5WAGliDQ8 BUKxbWrvYzIflF63 Oyc+GMOlvQbao6VnEzfv e7rgw6uooHi9RnkyUCJz zvQygDomOAZ2g9RlOl8o OAWeuQB1jYY4fL1l NmYnZwZ9VCwwB482StDe jEAkZozsY07uJ2CrzGX+ UMNhLsq3GRReaEewVN1s A2EuTQDmbpjtqPEu sQevRX9mMUJmnqhhJYLx oK0hJWZuY4t9AoKdLaQ2 BSqaF1TxPVDavxnjOv18 fQ1jQwHzRjU5LDdv P9NsdmX3USHhrSFaUQob OKT7J79pq7U2ZMPeTOTr DRN4sOA2oL4izXtiufbp bGVmdDsgdmVydGlj BPgwHAunC180JGJvpZdt PkNvZGluZyBEYXRlOiAg MDgvMTUvMjAyMzwvdGQ+ IDOhAXV4rLvxMOXk eYWlVUctYg7coBdxfEuu GE3mRTCdyrxyQHGkoR6l OHMmuCBhmTsbVT3oHZCy urksl911TlOeQFZ4 HAAvxRVdM0PogQ2eXzFw OFKaMKIfS7RdyBPqOGzx Y483YKlvUxR2ADJmugTe H5OiQNGndYpjTkJ4 c5C5Kx5Qw9TjvvxjB3Dk yOFvKaRpTsliOYa1J9Ec PjwvdHI+PG60BFTqNL15 WHw2XFI8jCquNGpr RIQfC3AqqC8oBrNiWCMj ZGRkOyc+PHRhYmxlIHdp ZHRoPScxMDAlJyBzdHls DQ0nCm5yCBPzGZGl kHutzAOhJpJef4fxPCMn OIsvMN2dyIjwJ0YaeVP5 WCNfr4d8Hk29A08bJ2Yg dXA+JXFpjLK8bFV0 zB5sUmRrJpW4AHtxG971 YyGqcCTqYjauu6vpe9wy vEl0DgQ0RVLzxtLirXch FIX7w4RlUo05L08j IHdpZHRoPSIxNSUiIHZh wNwqsr5gzO3yCn8+PGNv bBR1pSM2eY3yQzYqXvK7 IBazD848UlExzKCv Dlyww1rll3icgNi5HgNu VOTdnbNrgCyrRFZ8h5Hn Qb74K8OkwHwyj5PxImj9 yl86xZJfg5Q5rTR6 Q0OjVDHpypqpxOKljEwd KS8kXJHgvkxjMCSiqB1d WIBqC4h8GyYbLsC9ZAbk C3MsdoL3XOVdfWEb LKQweIOYpW6feizpc4pc fqozMkEkYSGmDLy7RDi3 AXBlyQjsSuJtBSR2DvM2 QVP0hBLctW1xsZrl iiwubQ6iYxo+IXL2dRWg vGNTMW9iEnhpnOU+PHRk YHZ3dDzaHXmsBLFirP8j QPJeO5b5MhTxAeD5 INzsQ1AomtU9LESblUPq VDWmtLNSzS5igermf2gn ukmjSiQfCKMkBVw0WOh6 LWFsaWduOiBsZWZ0 QrJ7FGP9yVAycB8fmVtq mozqeL2gAen+QmlydGgg ZNO6XIq4R3ExWxh3HUBz jItvSX7asJSwBQtx Pv6ncBgkvIwpZX6dCSGz oogli660AoJuo0fyBXDu yTYhMVohMWN7V75ff1H8 COQzVDHkYTM4sYU0 hK6tjVvduzsqaQLusQlg dmDquImfZNjfYSlaQ234 OTYwpWsfIxFjTVu1H8Ct Fym4RCHsoYqrSN9k jFKxUOohPm7qfRriwTqo OB6vUWDvzmdst430DtTk w8suNUZbyMGvURnhNBN3 B60fl2C1JDSiWGQe NDH4gGX1aZ7ygQkqxauv bGVmdDsgdmVydGljYWwt UQptW734AVYklJqkOcQq qJi0W5LwZeg2TXFo yBicNA7gjTQsGZmlUl8o zOsotKcuFZ2tNPAbtybm h021YhGxj3afARFfkMLj UPltGHV6D21hf7D7 CBSzXCSiAEB8gJM1fQ1s bGlnbjogbGVmdDsgdmVy iWstBUkmKGorA397PIHe cDsnPlBhdGllbnQg UFlgJRu8D8HfTmcewMR+ EG04KBYmTU01eZQwySNd u1ptrLa8XtWgYWFtCLJ4 hSfhXAvsi7LqTTLw C01gcQQzj0Y3KCJrwYzt eAZdIkLatQJ9uV3sMHya plnmm9mwbzstHmuqs7es ct96cF48H29xWWul ZHRoPSIzMCUiIHZhbGln sn8enU4pCi8+PGNvbCB3 lFU8qR0bVWVwDsF7BArk G807SzTybBMaVacy l6ehb7auaRi2JhL9WLTt tmTsdWuhRHH5h5DyPl20 R76aYOxaDUHoMKQnKVKk FKQwxHhjta8gmY2d Ii8+UFZsfQE7xSZ3uB4w TqNrWfR0JVzzS687KzRv eHDgGyfiA45dS6DpyCS+ XCQvKsc0XWGbuFmp NN9bjBFbTVazAf4qCXG5 PqDpVvBrKBrjS4KaYJNc mccyzjnviBP9DMWjECAq dE88Cg3ekDqrKWNa kXETpV4xnqqlo6mchpap JiUhUFYvOIb8KCe1YSIh xDybGyKcUEO8EgR9LZP5 sYJznF8eqNlzacge hU2sC5XoYQLiwhpsWg81 lP7gSpMzQtQ9JBnrAuz+ A9TXKojzUK7GC5iGMOre SzwvdGQ+PHRkIHN0 zNpeMBfxHOWfeR7sSCBq O9d8IrXfCfX5TQpaA0Sz XGOlbnoyId91uF7hUhEo UaD9DUojJ5NyoeP0 OFFqmPUeSVusHOH0K19v v7B2MACjSFHeNSG5mIY6 nF4rzWpjpkwvaZBwkFfp dmVydGljYWwtYWxp S153GTDmwGlpApWtEvD1 UbG2MqS5W1HvLle4MJBb nDndNJ1ljQZbOUgbMh3m vPlxaGeeAT7zWTIh cjyxULBpxC7wHZGfdYZv hFazFK9kZOYtrgvpm552 RtKgIBE6JSSuzVZjA8Eo zU2sYzUiOHIhDGGa B0XdrIKrUQqoM418XIkk ZpS9GZMeviHeU3OrWBEu vSsoOqW9k0O5Vf67BCOI ZWFyczwvdGQ+PHRk XPD4dUrnQPxiBNWsmA9a HXOlV2i7QkYpSnL7SBes G2LiSDArpjcyHm31tR4o OvZpQlC8KXwaK1Bv lrR0HHWtlWQuMJzzYOW9 F02pm6J9JSJySSTgSKF3 dXN0yA7xmSmlvemgjKYe dDsgdmVydGljYWwt VYqaJ100FYGmiClaZj3C LWY4U1SlPgd3GAHdkLyf OO8nhSCsEWlcCo8fgInb tTgmQR4qHBGebcxv GJDgsW5hAMSugFXkvWto NG8wAKVldkkgf208WoMz SGL0JHLpbKPwP4CbwL7s FyJrMIZnCESfB2Ok hDRtKGwjO694JKxbLcG7 UTHujyObE3WrRFFezDtn BzT5h1H7Eh3LAFleeSE+ OX47rn82G1ZgUyse Khj1OJMkBJP7wHI5dY9y WKAwNUopc9N8eAZ6Q6Ax xsVeyy2rv5vaGEIgMIzl G56kpWRlm5A4RATt wXI0PLHklAbfJfGgcC37 Oyc+TFNhmHavq0DfWojq r4yux7pdsSa3LtJeKQCz aiUxcZlhDVT8b8Ix Iz36S70zXPneESAlUKFj MPYeQPGwzBydqk4zdO7k Ii8+UAZbxLN8hVE0aG1w RtNeEfR0DJtqC040 YxWgmLBzGtejs4tgs3uw gSk6YdTnVBSyaqRpxPil EVG0q8FuJw36I0HsqCaf p6EwAcg1tn45hYSi p0I1rOE1V5YmTFWqqqhn wZZozPxuEW7rLUUzynxy JULqwG4lHMScH6t8VkJx DuG8SLpjV1XisnQ6 PBZefCAfSSNvhJNKxW9f hajqx1hijefdJaBpDWLf BNu4XDs7BVOvaJnxBxGs YLN8XdA8GNL2oQGw zK4dtOiybhskmP2yNjp+ EFn6e4zzaNCzSJ9tcUH3 VB79XV05kJPjw9M0aTS4 X0SwBOUexkkyjyei yXU5ODLsQINopE75Ib4j tTwaYs1hDYWtXAY6CQQm cVJeG0QzuU8tSkQeYBGc CJWrE5JrsNUxZOhe K613WAvgHzA5BJRktqPw B5FqLZCjkRngMhC1a3I0 Qj8KSU72LM69HN86mHPz l8P1zAH7S2DwHGQn mtrwxtojdVP3MBUiQFBv kN00Oi0toYqiIe1yOUTc EET0SKFcxSRvU6YyhB5e UeAjMEFaKVEuU9Tm eQYqPBioG657LJeiOlI7 LSQrimPqD5DbRVIcqGqw HsY6w8V5Jl6AAa50FC42 DO16dNBei0W8kHH5 U9UqCRSgzmagxzemvSR6 OBKhTAYlcD84Av0wkIlr Jl3dUBGvGVP3QAQjdYCy V6DzfF8ySfViGAGs WTAcS9PniWYuMFllC003 MKbjVzC1GRKzxwAbP4Im MPEhdYtdReS8g6Y4Ez3T DXcjmmj4P1DgSfnh dHI+XH85QPKaTL81zRLj jAQst3ymbKu4CcVbTOZz SIP0yXmeXFlcj3RyJWSs F16feXWrm2L0BIIj bGx (more content not included)... Normal [facility] Standardon 12-13-2022 eGFR Non AA >[address] [facility] Comment on above: Performed By: #### 1 [id number], [id number], [id number] ####[facility] (DEFAULT)[address] [place] [address] 78630 eGFR AA >[address] [facility] Comment on above: Performed By: #### 1 [id number], [id number], [id number] ####[facility] (DEFAULT)[address] [place] [address] 50404 Albumin [Mass/Vol] 3.9 g/dL Normal 3.5-5.0 [facility] Comment on above: Performed By: #### 1 [id number], [id number], [id number] ####[facility] (DEFAULT)[address] [place] [address] 91897 Albumin/Globulin [Mass ratio] 1.0 {ratio} Low 1.4-2.6 [facility] Comment on above: Performed By: #### 1 [id number], [id number], [id number] ####[facility] (DEFAULT)[address] [place] [address] 35747 Alk Phos 84 IU/L Normal 32-91 [facility] Comment on above: Performed By: #### 1 [id number], [id number], [id number] ####[facility] (DEFAULT)[address] [place] [address] 25596 ALT [Catalytic activity/Vol] 22.0 U/L Normal 17.0-63.0 [facility] Comment on above: Performed By: #### 1 [id number], [id number], [id number] ####[facility] (DEFAULT)[address] [place] [address] 35607 Anion gap [Moles/Vol] 9.9 mmol/L Normal 5.0-19.0 [facility] Comment on above: Performed By: #### 1 [id number], [id number], [id number] ####[facility] (DEFAULT)[address] [place] [address] 04260 AST [Catalytic activity/Vol] 31 U/L Normal 15-41 [facility] Comment on above: Performed By: #### 1 [id number], [id number], [id number] ####[facility] (DEFAULT)[address] [place] [address] 61781 Bili Total 0.5 mg/dL Normal 0.3-1.2 [facility] Comment on above: Performed By: #### 1 [id number], [id number], [id number] ####[facility] (DEFAULT)[address] [place] [address] 71141 Calcium [Mass/Vol] 8.6 mg/dL Low 8.9-10.3 [facility] Comment on above: Performed By: #### 1 [id number], [id number], [id number] ####[facility] (DEFAULT)[address] [place] [address] 28991 Chloride [Moles/Vol] 104 mmol/L Normal 101-111 [facility] Comment on above: Performed By: #### 1 [id number], [id number], [id number] ####[facility] (DEFAULT)[address] [place] [address] 62128 CO2 [Moles/Vol] 28 mmol/L Normal 21-32 [facility] Comment on above: Performed By: #### 1 [id number], [id number], [id number] ####[facility] (DEFAULT)[address] [place] [address] 25662 Creatinine [Mass/Vol] 1.07 mg/dL Normal 0.90-1.30 [facility] Comment on above: Performed By: #### 1 [id number], [id number], [id number] ####[facility] (DEFAULT)[address] [place] [address] 88594 Globulin (S) [Mass/Vol] 3.9 g/dL Normal 1.5-4.3 [facility] Comment on above: Performed By: #### 1 [id number], [id number], [id number] ####[facility] (DEFAULT)[address] [place] [address] 36282 Glucose [Mass/Vol] 92.0 mg/dL Normal 74.0-118.0 [facility] Comment on above: Performed By: #### 1 [id number], [id number], [id number] ####[facility] (DEFAULT)[address] [place] [address] 19567 Osmolality 276 mOsm/L Invalid Interpretation Code [facility] Comment on above: Performed By: #### 1 [id number], [id number], [id number] ####[facility] (DEFAULT)[address] [place] [address] 47081 Potassium [Moles/Vol] 3.9 mmol/L Normal 3.6-5.1 [facility] Comment on above: Performed By: #### 1 [id number], [id number], [id number] ####[facility] (DEFAULT)[address] [place] [address] 23253 Protein [Mass/Vol] 7.8 g/dL Normal 6.5-8.1 [facility] Comment on above: Performed By: #### 1 [id number], [id number], [id number] ####[facility] (DEFAULT)[address] [place] [address] 85865 Sodium [Moles/Vol] 138.0 mmol/L Normal 136.0-144.0 [facility] Comment on above: Performed By: #### 1 [id number], [id number], [id number] ####[facility] (DEFAULT)[address] [place] [address] 51060 Urea nitrogen [Mass/Vol] 16 mg/dL Normal 8-26 [facility] Comment on above: Performed By: #### 1 [id number], [id number], [id number] ####[facility] (DEFAULT)[address] [place] [address] 04321 Urea nitrogen/Creatinine [Mass ratio] 14.9 mg/mg Normal 4.6-16.2 [facility] Comment on above: Performed By: #### 1 [id number], [id number], [id number] ####[facility] (DEFAULT)[address] [place] [address] 94013 Hemogram Standardon 12-14-19 23 Erythrocyte distribution width (RBC) [Ratio] 14.2 % Normal 11.5-15.0 [facility] Comment on above: Performed By: #### 1 [id number], [id number], [id number] ####[facility] (DEFAULT)[address] [place] [address] 00639 Hematocrit (Bld) [Volume fraction] 41.9 % Normal 34.8-51.9 [facility] Comment on above: Performed By: #### 1 [id number], [id number], [id number] ####[facility] (DEFAULT)[address] [place] [address] 42923 Hemoglobin (Bld) [Mass/Vol] 14.2 g/dL Normal 11.8-17.7 [facility] Comment on above: Performed By: #### 1 [id number], [id number], [id number] ####[facility] (DEFAULT)[address] [place] [address] 31635 MCH (RBC) [Entitic mass] 32 pg Normal 24-34 [facility] Comment on above: Performed By: #### 1 [id number], [id number], [id number] ####[facility] (DEFAULT)[address] [place] [address] 76889 MCHC (RBC) [Mass/Vol] 34 g/dL Normal 26-37 [facility] Comment on above: Performed By: #### 1 [id number], [id number], [id number] ####[facility] (DEFAULT)[address] [place] [address] 09679 MCV (RBC) [Entitic vol] 93 fL Normal 81-100 [facility] Comment on above: Performed By: #### 1 [id number], [id number], [id number] ####[facility] (DEFAULT)[address] [place] [address] 34827 Platelet 122 x10 Low 138-427 [facility] Comment on above: Performed By: #### 1 [id number], [id number], [id number] ####[facility] (DEFAULT)[address] [place] [address] 29308 Platelet mean volume (Bld) [Entitic vol] 8.0 fL Normal 6.3-10.2 [facility] Comment on above: Performed By: #### 1 [id number], [id number], [id number] ####[facility] (DEFAULT)[address] [place] [address] 81094 RBC 4.50 x10 Normal 3.70-5.30 [facility] Comment on above: Performed By: #### 1 [id number], [id number], [id number] ####[facility] (DEFAULT)[address] [place] [address] 84629 WBC 5.5 x10 Normal 3.5-10.5 [facility] Comment on above: Performed By: #### 1 [id number], [id number], [id number] ####[facility] (DEFAULT)[address] [place] [address] 88111 Lipid Panel Standardon 12-13 Cholesterol [Mass/Vol] 158.0 mg/dL Normal 66.0-200.0 [facility] Comment on above: Performed By: #### 1 [id number], [id number], [id number] ####[facility] (DEFAULT)[address] [place] [address] 29163 Cholesterol in HDL [Mass/Vol] 48 mg/dL Normal 40-71 [facility] Comment on above: Performed By: #### 1 [id number], [id number], [id number] ####[facility] (DEFAULT)[address] [place] [address] 41600 Cholesterol in LDL [Mass/Vol] 98 mg/dL Normal 1-100 [facility] Comment on above: Performed By: #### 1 [id number], [id number], [id number] ####[facility] (DEFAULT)[address] [place] [address] 42903 Cholesterol.total/Choles terol in HDL [Mass ratio] 3.3 {ratio} Normal 0.0-4.5 [facility] Comment on above: Performed By: #### 1 [id number], [id number], [id number] ####[facility] (DEFAULT)[address] [place] [address] Triglyceride [Mass/Vol] 60.0 mg/dL Normal 0.0-150.0 [facility] Comment on above: Performed By: #### 1 [id number], [id number], [id number] ####[facility] (DEFAULT)[address] [place] [address] VLDL. 12 mg/dL Normal 5-40 [facility] Comment on above: Performed By: #### 1 [id number], [id number], [id number] ####[facility] (DEFAULT)[address] [place] [address] 85753 Provider Orderson 12-13-2022 Provider Orders [id number] Normal [facility] POC Glucose FingerstickOrder ed By: Serafin Shearer on 06-02-2019 Glucose [Mass/Vol] 70 mg/dL Low 75 - 110 mg/dL [facility] Phone: Interpretation and review of laboratory results Abnormal [facility] Phone: Glucose [Mass/Vol] 74 mg/dL Low 75 - 110 mg/dL [facility] Phone: Interpretation and review of laboratory results Abnormal [facility] Phone: Glucose [Mass/Vol] 64 mg/dL Low 75 - 110 mg/dL [facility] Phone: Interpretation and review of laboratory results Abnormal [facility] Phone: Surgical PathologyOrdered By : Serafin Shearer on 06-02-2019 Surgical Pathology Report [id number] [facility] ANATOMIC PATHOLOGY [address] [place] [id number] SURGICAL PATHOLOGY CONSULTATION Patient Name: YRN RICARDO [facility] Rec: [id number] Path Number: [id number] Collected: 06/01/2019 Received: 06/01/2019 Reported: 06/02/2019 10:13 [...] with no areas of granularity or masses. Plate Developer sections 1cs. tm Microscopic Description Microscopic examination performed. [facility] Phone: POC Glucose FingerstickOrder ed By: Serafin Shearer on 06-01-2019 Glucose [Mass/Vol] 91 mg/dL 75 - 110 mg/dL [facility] Phone: Glucose [Mass/Vol] 96 mg/dL 75 - 110 mg/dL [facility] Phone: Surgical Pathologyon 020 Surgical Pathology (NOTE) [id number] [facility] ANATOMIC PATHOLOGY [address] [place] [address]. [place], [place] [address] SURGICAL PATHOLOGY CONSULTATION Patient Name: YRN RICARDO [facility] Rec: [id number] Path Number: [id number] Collected: 06/01/2019 Received: 06/01/2019 Reported: 06/02/2019 10:13 [...] with no areas of granularity or masses. Plate Developer sections 1cs. tm Microscopic Description Microscopic examination performed. Normal [place] Comment on above: Performed By: #### P PPVS #### [facility] [employer] [address] [place] [address] Chargeback Analyst: Karl Klein MD Nicotineon 05-23-2019 8-VP-Guuoiqod 3 ng/mL [facility] [place] [facility] Comment on above: Performed By: #### C SYD PT, BMP #### [facility] [employer] [address] [place] [address] Chargeback Analyst: Karl Klein MD #### ANICOT #### [facility] [address] [place] [address] Chargeback Analyst: Cameron Calderon MD Cotinine 5 ng/mL [facility] Comment on above: Result Comment: (NOT E) Cotinine is the major metabolite of nicotine and is a biomarker of passive exposure when present at low concentrations. This result may reflect passive exposure to a nicotine-containing product. The half-life of cotinine is approximately 16 hours. Cotinine is metabolized to 4-[id number]-gjhoyjoo, which may persist for weeks after cessation from long-term or heavy use of nicotine products. Performed By: #### C SYD, PT, BMP #### [facility] [address] [place] [address] Chargeback Analyst: Karl Klein MD #### ANICOT #### [facility] [address] [place] [address] Chargeback Analyst: Cameron Calderon MD Nicotine <2 [facility] Comment on above: Result Comment: (NOT [...] positive. Test developed and characteristics determined by [employer]. See Compliance Statement B: [email or web address] Performed by [facility] [facility], [address] [place] [id number] [email or web address], Cameron Calderon MD, Lab. Director Performed By: #### C SYD PT, BMP #### [address] [address] Chargeback Analyst: Karl Klein MD #### RAVIT #### [address] [address] Chargeback Analyst: Cameron Calderon MD Basic Metabolic Profon 05-19 (cont.) [facility] Comment on above: Result Comment: Aver age GFR for 50-59 years old: 93 mL/min/1.73sq m Chronic Kidney Disease: <60 mL/min/1.73sq m Kidney failure: <15 mL/min/1.73sq m eGFR calculated using average adult body mass. Additional eGFR calculator available at: http://www.[email or web address]/multiple_crcl_2012.htm Performed By: #### C SYD PT, BMP #### [facility] [address] [place] [address] Chargeback Analyst: Karl Klein MD #### ANICOT #### [facility] [address] [place] [address] Chargeback Analyst: Cameron Calderon MD Anion gap [Moles/Vol] 14 mmol/L Normal 9-17 [facility] Comment on above: Performed By: #### C BC, PT, BMP #### [address] [address] Chargeback Analyst: Karl Klein MD #### ANICOT #### [facility] [address], [place] [id number] Chargeback Analyst: Cameron Calderon MD Calcium [Mass/Vol] 9.7 mg/dL Normal 8.6-10.4 [place] Comment on above: Performed By: #### C BC, PT, BMP #### [address] [address] Chargeback Analyst: Karl Klein MD #### ANICOT #### [facility] [address] [place] [id number] Chargeback Analyst: Cameron Calderon MD Chloride [Moles/Vol] 98 mmol/L Normal 98-107 [facility] Comment on above: Performed By: #### C BC, PT, BMP #### [address] [address] Chargeback Analyst: Karl Klein MD #### ANICOT #### [facility] [address], [place] [id number] Chargeback Analyst: Cameron Calderon MD CO2 [Moles/Vol] 25 mmol/L Normal 20-31 [place] Comment on above: Performed By: #### C BC, PT, BMP #### [address] [address] Chargeback Analyst: Karl Klein MD #### ANICOT #### [facility] [address], [place] [id number] Chargeback Analyst: Cameron Calderon MD Creatinine [Mass/Vol] 1.28 mg/dL High 0.70-1.20 [facility] Comment on above: Performed By: #### C BC, PT, BMP #### [facility] [address] [place] [address] Chargeback Analyst: Karl Klein MD #### ANICOT #### [facility] [address], [place] [id number] Chargeback Analyst: Cameron Calderon MD GFR, Amer >60 Normal >60 [facility] Comment on above: Performed By: #### C BC, PT, BMP #### [facility] [address] [place] [address] Chargeback Analyst: Karl Klein MD #### ANICOT #### [facility] [address], [place] [id number] Chargeback Analyst: Cameron Calderon MD GFR,non Amer 58 mL/min Low >60 [facility] Comment on above: Performed By: #### Kenrick VELARDE, PT, BMP #### [facility] [address] [place] [address] Chargeback Analyst: Karl Klein MD #### ANICOT #### [facility] [address], [place] [id number] Chargeback Analyst: Cameron Calderon MD Glucose [Mass/Vol] 80 mg/dL Normal 70-99 [place] Comment on above: Performed By: #### C BC, PT, BMP #### [facility] [address] [place] [address] Chargeback Analyst: Karl Klein MD #### ANICOT #### [facility] [address] [place] [address] Chargeback Analyst: Cameron Calderon MD Potassium [Moles/Vol] 4.6 mmol/L Normal 3.7-5.3 [facility] Comment on above: Performed By: #### C BC, PT, BMP #### [facility] [address] [place] [address] Chargeback Analyst: Karl Klein MD #### ANICOT #### [facility] [address] [place] [address] Chargeback Analyst: Cameron Calderon MD Sodium [Moles/Vol] 137 mmol/L Normal 135-144 [place] Comment on above: Performed By: #### C BC, PT, BMP #### [facility] [address] [place] [address] Chargeback Analyst: Karl Klein MD #### ANICOT #### [facility] [address] [place] [address] Chargeback Analyst: Cameron Calderon MD Urea nitrogen [Mass/Vol] 23 mg/dL High 6-20 [place] Comment on above: Performed By: #### C BC, PT, BMP #### [facility] [address] [place] [address] Chargeback Analyst: Karl Klein MD #### ANICOT #### [facility] [address] [place] [address] Chargeback Analyst: Cameron Calderon MD BUN/CRE Ratio NOT REPORTED Normal -20 [place] Comment on above: Performed By: #### C BC, PT, BMP #### [address] [address] Chargeback Analyst: Karl Klein MD #### ANICOT #### [facility] [address] [place] [address] Chargeback Analyst: Cameron Calderon MD Staging: NOT REPORTED Normal [place] Comment on above: Performed By: #### C BC, PT, BMP #### [facility] [address] [place] [id number] Chargeback Analyst: Karl Klein MD #### ANICOT #### [facility] [address], [place] [id number] Chargeback Analyst: Cameron Calderon MD CBCon 05-19-2019 Erythrocyte distribution width (RBC) [Ratio] 16.0 % High 11.8-14.4 [place] Comment on above: Performed By: #### C BC, PT, BMP #### [address] [id number] Chargeback Analyst: Karl Klein MD #### ANICOT #### [facility] [address], [place] [id number] Chargeback Analyst: Cameron Calderon MD Hematocrit (Bld) [Volume fraction] 42.0 % Normal 40.7-50.3 [place] Comment on above: Performed By: #### C BC, PT, BMP #### [address] [id number] Chargeback Analyst: Karl Klein MD #### ANICOT #### [facility] [address], [place] [id number] Chargeback Analyst: Cameron Calderon MD Hemoglobin (Bld) [Mass/Vol] 13.2 g/dL Normal 13.0-17.0 [place] Comment on above: Performed By: #### C BC, PT, BMP #### [address] [phone] Chargeback Analyst: Karl Klein MD #### ANICOT #### [facility] [address] [place] [address] Chargeback Analyst: Cameron Calderon MD MCH (RBC) [Entitic mass] 28.4 pg Normal 25.2-33.5 [place] Comment on above: Performed By: #### C BC, PT, BMP #### [facility] [address] [place] [phone] Chargeback Analyst: Karl Klein MD #### ANICOT #### [facility] [address] [place] [address] Chargeback Analyst: Cameron Calderon MD MCHC (RBC) [Mass/Vol] 31.4 g/dL Normal 28.4-34.8 [facility] Comment on above: Performed By: #### C BC, PT, BMP #### [address] [phone] Chargeback Analyst: Karl Klein MD #### ANICOT #### [facility] [address], [place] [id number] Chargeback Analyst: Cameron Calderon MD MCV (RBC) [Entitic vol] 90.3 fL Normal 82.6-102.9 M [facility] Comment on above: Performed By: #### C BC, PT, BMP #### [address] [id number] Chargeback Analyst: Karl Klein MD #### ANICOT #### [facility] [address], [place] [id number] Chargeback Analyst: Cameron Calderon MD NRBC Automated 0.0 per 100 WBC Normal 0.0 [place] Comment on above: Performed By: #### C BC, PT, BMP #### [address] [phone] Chargeback Analyst: Karl Klein MD #### ANICOT #### [facility] [address], [place] [id number] Chargeback Analyst: Cameron Calderon MD Platelet mean volume (Bld) [Entitic vol] 9.8 fL Normal 8.1-13.5 [place] Comment on above: Performed By: #### C BC, PT, BMP #### [facility] [address] [place] [address] [phone] Chargeback Analyst: Karl Klein MD #### ANICOT #### [facility] [address] [place] [address] Chargeback Analyst: Cameron Calderon MD Platelets (Bld) [#/Vol] 199 10*3/uL Normal 138-453 [place] Comment on above: Performed By: #### C BC, PT, BMP #### [address] [address] Chargeback Analyst: Karl Klein MD #### ANICOT #### [facility] [address] [place] [address] Chargeback Analyst: Cameron Calderon MD RBC (Bld) [#/Vol] 4.65 10*6/uL Normal 4.21-5.77 [place] Comment on above: Performed By: #### C BC, PT, BMP #### [address] [address] Chargeback Analyst: Karl Klein MD #### ANICOT #### [facility] [address] [place] [address] Chargeback Analyst: Cameron Calderon MD WBC (Bld) [#/Vol] 6.7 10*3/uL Normal 3.5-11.3 [place] Comment on above: Performed By: #### C BC, PT, BMP #### [address] [address] Chargeback Analyst: Karl Klein MD #### ANICOT #### [facility] [address] [place] [address] Chargeback Analyst: Cameron Calderon MD PTon 05-19-2019 INR Coag (PPP) [Relative time] 1.1 {INR} Normal [place] Comment on above: Result Comment: Therapeutic Range: Moderate Anticoagulant Intensity: INR = 2.0-3.0 High Anticoagulant Intensity: INR = 2.5-3.5 Performed By: #### C BC, PT, BMP #### [facility] [address] [place] [address] Chargeback Analyst: Karl Klein MD #### ANICOT #### [facility] [address] [place] [address] Chargeback Analyst: Cameron Calderon MD PT Coag (PPP) [Time] 12.0 s Normal 9.0-12.0 [facility] Comment on above: Performed By: #### C BC, PT, BMP #### [facility] [address] [place] [address] Chargeback Analyst: Karl Klein MD #### ANJARETT #### [facility] [address] [place] [address] Chargeback Analyst: Cameron Calderon MD XR CHEST (2 VW)on [...] Shawanda Aragon MD 05/19/19 Final result Normal [place] XR CHEST STANDARD (2 VW)Orde red By: Serafin Shearer on 05-19-2019 Negative chest. [facility] Work Phone: EXAMINATION: TWO XRAY VIEWS OF THE CHEST 05/19/2019 11:41 am COMPARISON: None. HISTORY: ORDERING SYSTEM PROVIDED HISTORY: preop sleeve gastrectomy Reason for Exam: Preop 06/01/19. no chest complaints Type of Exam: Initial FINDINGS: The lungs are without acute focal process. No effusion or pneumothorax. The cardiomediastinal silhouette is normal. The osseous structures are intact without acute process. [facility] Work Phone: Car, Mhpn Incoming Radiant Results From [email or web address] - 05/19/2019 11:50 AM EST EXAMINATION: TWO [...] intact without acute process. IMPRESSION: Negative chest. [facility] Work Phone: Vital Signs Date Time Vital Sign Value Performing Clinician Emilia henley 05-14-2023 11:28-0500 Body height 190.5 cm Olaf Sheae r DISINTEGRATOR-ENGINEERING AND DEVELOPMENT DIRECTOR Work Phone: [facility] 05-14-2023 11:28-0500 Body mass index (BMI) [Ratio] 48.25 kg/m2 Olaf Sheaer DISINTEGRATOR-ENGINEERING AND DEVELOPMENT DIRECTOR Work Phone: [facility] 05-14-2023 11:28-0500 Body weight 175.09 kg Olaf Sheae r DISINTEGRATOR-ENGINEERING AND DEVELOPMENT DIRECTOR Work Phone: [facility] 05-14-2023 11:28-0500 Diastolic blood pressure 80 mm[Hg] Olaf Sheaer DISINTEGRATOR-ENGINEERING AND DEVELOPMENT DIRECTOR Work Phone: [facility] 05-14-2023 11:28-0500 Heart rate 61 /min Olaf Sheae r DISINTEGRATOR-ENGINEERING AND DEVELOPMENT DIRECTOR Work Phone: [facility] 05-14-2023 11:28-0500 SaO2% (BldA) [Mass fraction] 95 % Olafkathy Zimmermanopher DISINTEGRATOR-ENGINEERING AND DEVELOPMENT DIRECTOR Work Phone: [facility] 05-14-2023 11:28-0500 Systolic blood pressure 116 mm[Hg] Olaf Sheaer DISINTEGRATOR-ENGINEERING AND DEVELOPMENT DIRECTOR Work Phone: [facility] 06-02-2019 07:15-0500 Body temperature 99.3 [degF] Serafin Shearer MD Work Phone: [facility] Work Phone: 06-02-2019 07:15-0500 Diastolic blood pressure 59 mm[Hg] Serafin Shearer MD Work Phone: [facility] Work Phone: 06-02-2019 07:15-0500 Heart rate 62 /min Serafin Shearer MD Work Phone: [facility] Work Phone: 06-02-2019 07:15-0500 Respiratory rate 16 /min Serafin Shearer MD Work Phone: [facility] Work Phone: 06-02-2019 07:15-0500 SaO2% (BldA) [Mass fraction] 95 % Serafin Shearer MD Work Phone: [facility] Work Phone: 06-02-2019 07:15-0500 Systolic blood pressure 116 mm[Hg] Serafin Shearer MD Work Phone: [facility] Work Phone: 06-01-2019 09:10-0500 Body height 190.5 cm Serafin Shearer MD Work Phone: [facility] Work Phone: 06-01-2019 09:10-0500 Body mass index (BMI) [Ratio] 53.24 kg/m2 Serafin Shearer MD Work Phone: [facility] Work Phone: 06-01-2019 09:10-0500 Body weight 193.2 kg Serafin Shearer MD Work Phone: [facility] Work Phone: Encounters Encounter Date Encounter Type Care Provider Facility Start: 11-22-2023 End: 11-22-2023 ambulatory Srinivas Luciano Facility:[facility] Start: 11-15-2023 End: 11-15-2023 ambulatory Srinivas R Dolce Facility:[facility] Start: 10-25-2023 End: 10-25-2023 ambulatory Srinivas R Dolce Facility:[facility] Start: 10-17-2023 End: 10-17-2023 ambulatory PA Kelley Redmond Facility:[facility] Start: 10-10-2023 End: 10-10-2023 ambulatory PA Kelley Redmond Facility:[facility] Start: 10-04-2023 ambulatory Srinivas R Dolce Facility :[facility] Start: 10-02-2023 ambulatory Srinivas R Dolce Facility :[facility] Start: 09-26-2023 ambulatory Melo Reno acility:[facility] Start: 09-26-2023 End: 09-26-2023 ambulatory PA Kelley Redmond Facility:[facility] Start: 09-25-2023 End: 09-25-2023 ambulatory LESLY MELCHOR MD Facility:[facility] Start: 09-16-2023 End: 09-16-2023 ambulatory Srinivas R Dolce Facility:[facility] Start: 09-10-2023 End: 09-10-2023 ambulatory PA Kelley Redmond Facility:[facility] Start: 09-02-2023 End: 09-02-2023 ambulatory Srinivas R Dolce Facility:[facility] Start: 08-26-2023 End: 08-26-2023 ambulatory Srinivas R Dolce Facility:[facility] Start: 08-19-2023 End: 08-19-2023 ambulatory Srinivas R Dolce Facility:[facility] Start: 08-15-2023 End: 08-15-2023 ambulatory PA Kelley Redmond Facility:[facility] Start: 08-08-2023 End: 08-08-2023 ambulatory PA Kelley Redmond Facility:[facility] Start: 08-01-2023 End: 08-01-2023 ambulatory PA Kelley Redmond Facility:[facility] Start: 07-26-2023 End: 07-26-2023 ambulatory Srinivas R Dolce Facility:[facility] Start: 07-24-2023 End: 07-24-2023 ambulatory Srinivas R Dolce Facility:[facility] Start: 07-24-2023 End: 07-24-2023 ambulatory Srinivas R Dolce Facility:[facility] Start: 07-19-2023 End: 07-19-2023 ambulatory LESLY MELCHOR MD Facility:[facility] Start: 07-19-2023 End: 07-19-2023 ambulatory Srinivas R Dolce Facility:[facility] Start: 07-15-2023 End: 07-15-2023 ambulatory Srinivas R Dolce Facility:[facility] Start: 07-12-2023 End: 07-12-2023 ambulatory Srinivas R Dolce Facility:[facility] Start: 07-10-2023 End: 07-10-2023 ambulatory Srinivas R Dolce Facility:[facility] Start: 07-05-2023 End: 07-05-2023 ambulatory Srinivas R Dolce Facility:[facility] Start: 07-01-2023 End: 07-01-2023 ambulatory Srinivas R Dolce Facility:[facility] Start: 06-26-2023 End: 06-26-2023 ambulatory LESLY MELCHOR MD Facility:[facility] Start: 05-14-2023 End: 05-14-2023 Office outpatient visit 15 minutes Olaf GOOD Work Phone: [facility] Comment on above: Cardiac pacemaker (P rimary Dx); Morbid obesity with BMI of 40.0-44.9, adult ([facility]); Complete heart block ([facility]) Start: 05-14-2023 End: 05-14-2023 Clinical Support Ppc Pacer [facility] Comment on above: Cardiac pacemaker (P rimary Dx) Start: 03-26-2023 End: 03-26-2023 ambulatory LESLY MELCHOR MD Facility:[facility] Start: 12-21-2022 End: 12-21-2022 ambulatory LESLY MELCHOR MD Facility:[facility] Start: 12-13-2022 End: 12-13-2022 ambulatory LESLY MELCHOR MD Facility:[facility] Start: 02-10-2021 End: 02-11-2021 ambulatory DAMARID Yousuf DENNIS-ATUL [facility] Start: 02-10-2021 End: 02-10-2021 Subsequent hospital visit by physician [facility] [address] [facility] Comment on above: History of pulmonary embolism; Hx of deep venous thrombosis Start: 06-01-2019 End: 06-02-2019 Evaluation and management of inpatient SERAFIN SHEARER [place] Start: 06-01-2019 End: 06-02-2019 Evaluation and management of inpatient Serafin Shearer MD Work Phone: [facility] Comment on above: S/P laparoscopic sle ramon gastrectomy (Primary Dx) Start: 05-19-2019 End: 2019 Patient encounter procedure SERAFIN SHEARER [place] Start: 05-19-2019 End: 05-21-2019 Subsequent hospital visit by physician [facility] 2 [facility] Comment on above: Arrived Procedures [...] Work Phone: Start: 06-01-2019 TELEMETRY MONITORING SERAFIN PRIYANKA Start: 06-01-2019 DIET NPO, NOW SERAFIN LUNALOUISE [...] SERAFIN SHEARER Start: 06-01-2019 TURN PATIENT SERAFIN PRIYANKA Start: 06-01-2019 PATIENT STATUS (FROM ED OR OR/PROCEDURAL) SERAFIN SHEARER Start: 06-01-2019 TRANSFER PATIENT SERAFIN FOURLOUISE Start: 06-01-2019 Level iv surg pathology gross&microscopic [...] years Vaccine (2 of 2 - PPSV23) [facility] Phone: Start: 12-30-2025 Lipid panel [facility] Start: 05-14-2024 Adult BMI Screening Adult BMI Screen ing [facility] Start: 05-14-2024 Tobacco Screening [facility] Start: 07-30-2023 Lipid screen [facility] screen [facility] Work Phone: Start: 12-30-2021 Creatinine measurement Creatinine mo nitoring [facility] Phone: Start: 12-30-2021 Potassium monitoring Potassium monit oring [facility] Phone: Start: 12-30-2021 Thyroid stimulating hormone measurement TSH testing [facility] Phone: Start: 08-29-2021 End: 08-29-2021 Patient encounter procedure 08/29/2021 Office Visit Oncology Consuelo Delgadillo MD [address] [place], [place] [id number] [facility] Start: 03-24-2021 End: 03-24-2021 Patient encounter procedure 03/24/2021 Office Visit Pulmonology Teddy Fam MD [address] [phone] [facility] Start: 02-14-2021 End: 02-14-2021 Patient encounter procedure 02/14/2021 Office Visit Bariatrics Mary Lou Power, DISINTEGRATOR - ENGINEERING AND DEVELOPMENT DIRECTOR [address] [facility] [address] [place] [address] [facility] Start: 09-01-2021 Influenza vaccination Flu vaccine (# 1) [facility] Phone: Start: 05-19-2020 Creatinine monitoring Creatinine mon itoring [facility] Phone: Start: 05-19-2020 Potassium monitoring Potassium monit oring [facility] Phone: Start: 07-30-2019 TSH testing TSH testing [facility] [employer] Phone: Start: 06-12-2019 End: 06-12-2019 Patient encounter procedure 06/12/2019 Office Visit Pulmonology Teddy Fam MD [address] [phone] [facility] Start: 06-09-2019 End: 06-09-2019 Patient encounter procedure 06/09/2019 Office Visit Bariatrics Serafin Shearer MD [address] [place] [phone] [facility]ric Surg Start: 06-01-2019 End: 06-01-2019 Admission to same day surgery center 06/01/2019 Surgery IP Unit Serafin Shearer MD [address] [place] [phone] XI ROBOTIC LAPAROSCOPIC GASTRECTOMY SLEEVE, ENDOSEAL [facility] Comment on above: XI ROBOTIC LAPAROSCO PIC GASTRECTOMY SLEEVE, ENDOSEAL Start: 06-01-2019 Subsequent hospital visit by physician 06/01/2019 Hospital Encounter IP Unit Serafin Shearer MD [address] [place] [phone] [facility] Start: 03-06-2019 Annual Wellness Visi t (AWV) Annual Wellness Visit (AWV) [facility] Phone: Start: 2012 Administration of varicella zoster vaccine Zoster (Shingles) Vaccine (1 of 2) [facility] Start: 2012 Colon cancer screen colonoscopy Colon cancer screen colonoscopy [facility] Phone: Start: 2012 Shingles Vaccine (1 of 2) Shingles Vaccine (1 of 2) [facility] Phone: Start: 2007 Screening for malign ant neoplasm of colon Colon cancer screen colonoscopy [facility] Phone: Start: 1981 DTaP,Tdap and Td Vaccines (1 - Tdap) DTaP,Tdap and Td Vaccines (1 - Tdap) [facility] Start: 1981 DTaP/Tdap/Td vaccine (1 - Tdap) DTaP/Tdap/Td vaccine (1 - Tdap) [facility] Phone: Start: 1980 Adult BMI Follow Up Plan Adult BMI Follow Up Plan [facility] Start: 1977 HIV screen [facility] Work Phone: Start: 1977 HIV screening [facility] screen [facility] Work Phone: Start: 1974 Depression Screening Depression Scre ening [facility] Start: 1973 DTaP/Tdap/Td vaccine (1 - Tdap) DTaP/Tdap/Td vaccine (1 - Tdap) [facility] Phone: Start: 1962 Hepatitis C screen Hepatitis C scree n [facility]: Start: 1962 Hepatitis C screening Hepatitis C sc reen [facility] Phone: Start: 1962 Tobacco Counseling Tobacco Counselin g [facility] Home BIPAP or CPAP Home BIPAP or CPAP Respiratory Care Routine Daily until discontinued starting 06/01/2019 [facility] Phone: Comment on above: Daily until disconti nued starting 06/01/2019 Initiate Oxygen Ther apy Protocol Initiate Oxygen Therapy Protocol Respiratory Care Routine Daily until discontinued starting 06/01/2019 [facility] Phone: Comment on above: Daily until disconti nued starting 06/01/2019 Surgical Pathology Surgical Path ology Lab Routine ONE TIME for 1 Occurrences starting 06/01/2019 [facility] Phone: Comment on above: ONE TIME for 1 Occur rences starting 06/01/2019 Immunizations Immunization Date Immunization Notes Care Provider Bhavna lynch 12-16-2013 pneumococcal polysaccharide vaccine, 23 [address]ent Stv 2 [facility] Payers Date Payer Category Payer Self-pay 2019 Unknown [employer] D UAL BENEFITS [employer] W[employer] DUAL xxxxxxxxxxx 2019-Present [address] [place] [address] xxxxxxxxxxx [id number] 2018 Medicaid [place] [employer] [facility] MEDICAID [id number] 2018-Present [phone] [address] [place] [address] [id number] 2018 Medicaid [id number] 2018 Medicare [place] MEDICARE [employer] WENWV MEDICARE [id number] 2018-Present [phone] [address] [place] [address] [id number] 2018 Unknown [id number] 1962 Unknown [id number] 2.16.840.1.285782.3.579.2.175 1962 Unknown [id number] 2.16.840.1.215286.3.579.2.175 1962 Unknown [id number] 2.16.840.1.235224.3.579.2.175 1962 Unknown [id number] 2.16.840.1.015720.3.579.2.176 1962 Unknown [id number] 2.16.840.1.017840.3.579.2.1286 1962 Unknown [id number] 2.16.840.1.320029.3.579.2.1286 1962 Unknown [id number] 2.16.840.1.938759.3.579.2. 1962 Unknown [id number] 2.16.840.1.232823.3.579.2. 1962 Unknown [id number] 2.16.840.1.165510.3.579.2. 1962 Unknown [id number] 2.16.840.1.258840.3.579.2. 1962 Unknown [id number] 2.16.840.1.134074.3.579.2. 1962 Unknown [id number] 2.16.840.1.330596.3.579.2. 1962 Unknown [id number] 2.16.840.1.497457.3.579.2. 1962 Unknown [id number] 2.16.840.1.227379.3.579.2. 1962 Unknown [id number] 2.16.840.1.105806.3.579.2. 1962 Unknown [id number] 2.16.840.1.945226.3.579.2. 1962 Unknown [id number] 2.16.840.1.836957.3.579.2. 1962 Unknown [id number] 2.16.840.1.554517.3.579.2. 1962 Unknown [id number] 2.16.840.1.955934.3.579.2. 1962 Unknown [id number] 2.16.840.1.788939.3.579.2. 1962 Unknown [id number] 2.16.840.1.174201.3.579.2. 1962 Unknown [id number] 2.16.840.1.207236.3.579.2. 1962 Unknown [id number] 2.16.840.1.749243.3.579.2. 1962 Unknown [id number] 2.16.840.1.902996.3.579.2. 1962 Unknown [id number] 2.16.840.1.255694.3.579.2. 1962 Unknown [id number] 2.16.840.1.869201.3.579.2. 1962 Unknown [id number] 2.16.840.1.891667.3.579.2. 1962 Unknown [id number] 2.16.840.1.696521.3.579.2. 1962 Unknown [id number] 2.16.840.1.235080.3.579.2. 1962 Unknown [id number] 2.16.840.1.565248.3.579.2. 1962 Unknown [id number] 2.16.840.1.233393.3.579.2. 1962 Unknown [id number] 2.16.840.1.444981.3.579.2. 1962 Unknown [id number] 2.16.840.1.518755.3.579.2. 1962 Unknown [id number] 2.16.840.1.799534.3.579.2. 1962 Unknown [id number] 2.16.840.1.553147.3.579.2. 1962 Unknown [id number] 2.16.840.1.292513.3.579.2.718 1962 Unknown [id number] 2.16.840.1.591918.3.579.2.718 1962 Unknown [id number] 2.16.840.1.011922.3.579.2.718 1962 Unknown [id number] 2.16.840.1.391103.3.579.2.718 1962 Unknown [id number] 2.16.840.1.112731.3.579.2.718 1962 Unknown [id number] 2.16.840.1.502058.3.579.2.718 1962 Unknown [id number] 2.16.840.1.197107.3.579.2.718 1962 Unknown [id number] 2.16.840.1.060226.3.579.2.71 Unknown [id number] 2.16.840.1.450333.3.579.2.531 Social History Date Type Detail Facility Start: 02-08-2021 End: 04-18-2022 Tobacco smoking status [facility] Never smoker [facility] Start: 02-08-2021 Tobacco use and exposure Former user [facility] Phone: End: 01-17-2021 History of tobacco use [facility] Start: 02-08-2021 End: 05-14-2023 Alcohol intake Ex-drinker (finding) [facility] Phone: Start: 07-25-2018 History SDOH Alcohol Frequency [facility] Start: 1960 [facility]igned At [facility] Start: 04-18-2022 Tobacco use and exposure User of smokeless tobacco [facility] Start: 06-16-2020 End: 05-14-2023 History of Social function [facility] Start: 06-16-2020 End: 05-14-2023 Tobacco use panel [facility] Housing Instability Unknown [facility] Medical Equipment Procedure Code Equipment Code Equipment Origin al Text Equipment Identifier Dates Ld Pcng Ingevity + 52cm Mri - [id number] - [id number] Start: 08-25-2020 Cardiac pacemaker, device (physical object) ([id number]) Pcmkr Accolade Mri Dr Cade - [id number] - [id number] Start: 08-25-2020 Goals Date Patient Goal Desired Activity /State Personal health goal Comment on above: Formatting of this n ote might be different from the original. Evaluation of progress towards goal: home self care Clinical Notes 06-02-2019 to 11-18-2023 Olaf Cain, DISINTEGRATOR-[facility] - 05/14/2023 11:30 AM Juanita Hopper MD - 05/14/2023 11:00 AM Starr Sanon RN - 06/02/2019 7:24 AM Serafin Jesus MD - 06/02/2019 6:43 AM EST Note Date & Type Note Facility 11-18-2023 Note Entered by Yousuf Pierce CMA on November 18, 2023 07:43:49 EDT From: Ana Pierce CMA To: [facility] Sent: 11/18/2023 07:43:49 EDT Subject: Medication Management Submitted: Complete:rivaroxaban (Xarelto 20 mg oral tablet) Signed by Ana Pirece CMA 11/18/2023 07:43:00 EDT Approved with modifications: rivaroxaban (XARELTO 20 MG TABLET 20 Tablet) TAKE 1 TABLET BY MOUTH IN THE EVENING WITH MEALS Qty: 30 tab(s) Days Supply: 30 Refills: 10 Substitutions Allowed [facility] Signed by Ana Pierce CMA Patient matched by Ana Pierce CMA on 11/18/2023 07:43:20 EDT --------- From: [facility] To: KAREN ZAPATA, LESLY To MD Sent: November 15, 2023 5:11:03 PM CDT Subject: Medication Management Due: November 16, 2023 12:10:53 AM CDT On Hold Pending Signature Dispensed Drug: rivaroxaban (Xarelto 20 mg oral tablet), TAKE 1 TABLET BY MOUTH IN THE EVENING WITH MEALS Quantity: 30 tab(s) Days Supply: 30 Refills: 10 Substitutions Allowed Notes from Pharmacy: --------- [facility] 10-17-2023 Note Entered by Yousuf Pierce on October 17, 2023 07:43:22 EDT From: Ana Pierce To: [facility] Sent: 10/17/2023 07:43:22 EDT Subject: Medication Management Submitted: Complete:levothyroxine (levothyroxine 150 mcg (0.15 mg) oral tablet) Signed by Ana Pierce 10/17/2023 07:43:00 EDT Approved with modifications: levothyroxine (LEVOTHYROXINE 150MCG TAB 150 Tablet) TAKE 1 TABLET BY MOUTH ONCE DAILY Qty: 30 tab(s) Days Supply: 30 Refills: 10 Substitutions Allowed Route To Pharmacy - [facility] Signed by Ana Pierce --------- From: [facility] To: KAREN ZAPATA, LESLY [...] 10 Substitutions Allowed Notes from Pharmacy: --------- [facility] 07-24-2023 Note CLINICAL DATA: [place] s [...] Wright 07/24/23 10:38 a Technologist: [facility] 07-08-2023 Note Entered by Yousuf Pierce on July 08, 2023 07:59:35 EST From: Ana Pierce [facility] Sent: 07/08/2023 07:59:35 EST Subject: Medication Management Not Approved: now on pulmicort fluticasone (FLUTICASONE PROP HFA 110MCG 110 Aerosol) INHALE 2 PUFFS BY MOUTH TWICE DAILY *RINSE MOUTH AFTER USE* Qty: 12 gm Days Supply: 30 Refills: 10 Substitutions Allowed [facility] Signed by Ana Pierce --------- From: [facility] To: KAREN ZAPATA, LESLY To MD Sent: July 05, 2023 4:32:01 PM ELECTROMECHANICAL ASSEMBLY TECHNICIAN Subject: Medication Management Due: July 06, 2023 12:09:30 AM ELECTROMECHANICAL ASSEMBLY TECHNICIAN On Hold Pending Signature Drug: fluticasone (Flovent [...] 10 Substitutions Allowed Notes from Pharmacy: --------- [facility] 05-28-2023 Note Entered by Yousuf Pirece on May 28, 2023 07:49:21 EST From: Ana Pierce To: [facility] Sent: 05/28/2023 07:49:21 EST Subject: Medication Management Submitted: Complete:oxyBUTYnin (oxybutynin 10 mg/24 hr oral tablet, extended release) Signed by Ana Pierce 05/28/2023 07:49:00 EST Approved with modifications: oxyBUTYnin (OXYBUTYNIN ER 10MG TAB 10 Tablet) TAKE 1 TABLET BY MOUTH DAILY Qty: 30 tab(s) Days Supply: 30 Refills: 10 Substitutions Allowed Route To Pharmacy - [facility] Signed by Ana Pierce --------- From: [facility] To: KAREN ZAPATA, LESLY To MD Sent: May 27, 2023 5:22:40 PM ELECTROMECHANICAL ASSEMBLY TECHNICIAN Subject: Medication Management Due: May 28, 2023 12:05:03 AM ELECTROMECHANICAL ASSEMBLY TECHNICIAN On Hold Pending Signature Drug: oxyBUTYnin (oxybutynin 10 mg/24 hr oral tablet, extended release), 1 tab(s) PO Daily Quantity: 30 tab(s) Days Supply: 0 Refills: 10 Substitutions Allowed Notes from Pharmacy: Dispensed Drug: oxyBUTYnin (oxybutynin 10 mg/24 hr oral tablet, extended release), TAKE 1 TABLET BY MOUTH DAILY Quantity: 30 tab(s) Days Supply: 30 Refills: 10 Substitutions Allowed Notes from Pharmacy: --------- [facility] 05-14-2023 History of Present illness Narrative [...] PE, chronic lymphedema, complete heart block s/p [employer] dual-chamber pacemaker implanted 2020. He is here today for routine evaluation. Patient states he has been doing well since last office visit. He denies chest pain, shortness of breath, palpitations, fatigue. Patient enjoys fishing with his grandson. Past Medical History: Diagnosis Date Anxiety COPD (chronic obstructive pulmonary disease) ([facility]) Depression Hypertension Hypothyroidism Sleep apnea No data recorded No data recorded No data recorded Past Surgical History: Procedure Laterality Date Cardiac catheterization N/A 08/23/2020 Performed by Brian Hilario MD at [facility] Coronary angiogram and left ventricular gram/pressure N/A 08/23/2020 Performed by Brian Hilario MD at [facility] EP - Device-PPM Left 08/25/2020 Performed by Alexander Hopper MD at [facility] (EP) HAND RECONSTRUCTION Left SLEEVE GASTROPLASTY 05/2019 [...] Morbid obesity with BMI of 40.0-44.9, adult ([facility]) 3. Complete heart block ([facility]) Intermittent complete heart block s/p [employer] dual-chamber pacemaker implanted 2020 Device check [...] MELCHOR MD Referring Physician: Lesly Melchor MD [address] [place] [address] LATISHA Harman 05/14/23 1202 documented in this encounter [facility] 05-14-2023 History of Present illness Narrative I agree with the findings in the scanned document. documented in this encounter [facility] 01-11-2023 Note Entered by Yousuf Pierce on January 11, 2023 07:51:29 EDT From: Ana Pierce To: [facility] Sent: 01/11/2023 07:51:29 EDT Subject: Medication Management Submitted: Complete:rivaroxaban (Xarelto 20 mg oral tablet) Signed by Ana Pierce 01/11/2023 07:51:00 EDT Approved with modifications: rivaroxaban (XARELTO 20 MG TABLET 20 Tablet) TAKE 1 TABLET BY MOUTH IN THE EVENING WITH MEALS Qty: 30 tab(s) Days Supply: 30 Refills: 10 Substitutions Allowed Route To Pharmacy - [facility] Signed by Ana Pierce Patient matched by Ana Pierce on 01/11/2023 07:51:09 EDT --------- [facility]: [facility] To: KAREN ZAPATA, LESLY To MD Sent: January 10, 2023 5:18:47 PM CDT Subject: Medication Management Due: January 11, 2023 1:31:05 PM CDT On Hold Pending Signature Dispensed Drug: rivaroxaban (Xarelto 20 mg oral tablet), TAKE 1 TABLET BY MOUTH IN THE EVENING WITH MEALS Quantity: 30 tab(s) Days Supply: 30 Refills: 10 Substitutions Allowed Notes from Pharmacy: --------- [facility] 06-02-2019 History of Present illness Narrative [...] NICHOLS 1:03 PM documented in this encounter [facility] Phone: Evaluation note Diagnosis History of pulmonary embolism Personal history of pulmonary embolism Hx of deep venous thrombosis Personal history of venous thrombosis and embolism documented in this encounter [facility] Phone: evaluation note* Diagnosis S/P laparoscopic sleeve gastrectomy- Primary documented in this encounter [facility] Phone: evaluation note* Diagnosis Cardiac pacemaker- Primary Cardiac pacemaker in situ Morbid obesity with BMI of 40.0-44.9, adult ([facility]-HCC) Complete heart block ([facility]) Atrioventricular block, complete documented in this encounter [facility] SystemEvaluation note* Diagnosis Cardiac pacemaker- Primary Cardiac pacemaker in situ [facility] Instructions* Stewart Golden DO - 06/02/2019 Discharge Instructions for Bariatric Surgery You had a Laparoscopic Sleeve Gastrectomy (09257) to treat obesity. Recovery from this surgery [...] scheduled appointment, please call the office at [phone]. Call Your Doctor If Any of the [...] sent through Care Everywhere. * Enoxaparin (Lovenox) (Somali) * enoxaparin (Somali) documented in this encounterWangdaizhijia Phone: InstructionsNot on filedocumented in this encounter [facility] SystemInstructionsNot on filedocumented in this encounter [facility] Summary Purpose Family History No Family History Records FoundNo Family History Records FoundNo Family History Records FoundNo Family History Records FoundNo Family History Records Found Advance Directives No Advanced Directives Records FoundDocuments on File Type Date Recorded Patient Plate Developer Expl anation ACP-Advance Directive ACP-Power of Director Business Travel Latest Code Status on File Code Status Date Activated Date Inactivated Comments Full Code 06/01/2019 12:33 PM 06/02/2019 3:05 PM Documents on File Type Date Recorded Patient Plate Developer Expl anation Advance Directives and Living Will Power of Director Business Travel Documents on File Type Date Recorded Patient Plate Developer Expl anation Advance Directives and Living Will Power of Director Business Travel Latest Code Status on File Code Status Date Activated Date Inactivated Comments Full Code 06/01/2019 12:33 PM Reason for Referral Status Reason Specialty Diagnoses / Procedures Referred By Contact Referred To Contact Pending Review Radiology Diagnoses History of pulmonary embolism Hx of deep venous thrombosis Procedures VL DUP LOWER EXTREMITY VENOUS BILATERAL Consuelo Delgadillo MD [address] [place] [address] Specialty Diagnoses / Procedures Referred By Contac t Referred To Contact Diagnoses Cardiac pacemaker Procedures Device Interrogation KatyhristOlaf dalton, DISINTEGRATOR-ENGINEERING AND DEVELOPMENT DIRECTOR [address] [place] [address] Referral ID Status Reason Start Date Expiration Date V isits Requested Visits Authorized [id number] Pending Review 05/14/2023 05/13/2024 1 1 Additional Source Comments (unrecognized sect ion and content) No Status Records FoundNo Status Records FoundNo Status Records FoundNo Status Records FoundNo Status Records Found INFORMATION SOURCE (unrecogn ized section and content) DATE CREATED AUTHOR 07/14/2019 [facility] DATE CREATED AUTHOR AUTHOR'S ORGANIZ ATION 02/11/2021 [facility] DATE CREATED AUTHOR AUTHOR'S ORGANIZ ATION 05/19/2023 [facility] DATE CREATED AUTHOR AUTHOR'S ORGANIZ ATION 09/29/2023 [facility] DATE CREATED AUTHOR AUTHOR'S ORGANIZ ATION 12/07/2023 [facility] Reason for Visit (unrecogniz ed section and content) Status Reason Specialty Diagnoses / Procedures Referred By Contact Referred To Contact Pending Review Radiology Diagnoses History of pulmonary embolism Hx of deep venous thrombosis Procedures VL DUP LOWER EXTREMITY VENOUS BILATERAL Consuelo Delgadillo MD [address] [place] [address] Status Reason Specialty Diagnoses / Procedures Referre d By Contact Referred To Contact Diagnoses Obesity OBESITY, HYPERTENSION, COPD, HYPOTHYROIDISM, LIPODEMIA Procedures HI LAP, DHARMESH RESTRICT PROC, LONGITUDINAL GASTRECTOMY XI ROBOTIC LAPAROSCOPIC GASTRECTOMY SLEEVE, ENDOSEAL Serafin Shearer MD [address] [place] [address] [facility] Reason Comments Device Check Reason Comments Device Check Care Teams (unrecognized sec tion and content) Eviction Specialist Relationship Specialty Start Date End Date Lesly Melchor MD [address] [place] [id number] PCP - General 02/10/16 Eviction Specialist Relationship Specialty Start Date End Date Lesly Melchor MD [address] [place] [id number] PCP - General 02/10/16 FOR RECORDS PERTAINING [...] BE BASED ON THE PRIMARY CLINICAL RECORDS. [facility]. provides no warranty or guarantee of the accuracy or completeness of information in this document.
[2023-12-12 09:08] VITALS: BMI 48.2
--- NOTE | 2023-12-12 09:08 | V.VEINS.HP ---
Vital Signs 12/12/23 09:08 Height 6 ft 3 in Weight 175 kg BMI 48.2 Varicose Veins Patient in this day for follow up ultrasound post EVLT of bilateral leg perforators. Trino Chaves MD personally performed the services described in this documentation, as scribed by Estefania Dhaliwal RVT, RDMS in my presence and it is both accurate and complete. Estefania Chaves RVT, RDMS, am scribing for, and in the presence of, Dr. Trino Israel and in the presence of the patient. medial thigh: bilateral, knee: bilateral, calf: bilateral, ankle: bilateral and munoz: bilateral burning and sharp 6 11 years Worsened in recent months: Yes standing and sitting bed rest, elevating extremities and compression stockings Reports heaviness, edema and leg edema History of lower extremity trauma: No Superficial thrombophlebitis: No Family history of varicose veins: unknown Has patient had previous lower extremity venous surgery: No Patient has previously received the following treatment(s) for lower extremity varicose veins: Reports none Does patient have a history of : not applicable Does patient intend to have future pregnancies: not applicable Has patient had lower extremity venous scan with relux testing: Yes Support hose used: Yes Problems walking or doing physical activity: Yes 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 I, Estefania Dhaliwla RVT, RDMS, am scribing for, and in the presence of, Dr. Trino Israel and in the presence of the patient. Status of ROS 10 or more systems reviewed and unremarkable except as noted in history and below Cardiovascular Reports: edema and swelling of feet/ankles Musculoskeletal Reports: extremity pain and extremity swelling Integumentary/Breast Reports: redness, non-healing lesion and changes in skin color [facility] Medical History (Updated 11/28/23 @ 14:31 by Grecia Nielsen) Phlebitis and thrombophlebitis of superficial vessels of lower extremities, bilateral ?I80.03 - Phlebitis and thrombophlebitis of superficial vessels of lower extremities, bilateral (ICD-10) Phlebitis and thrombophlebitis of superficial vessels of right lower extremity ?I80.01 - Phlebitis and thrombophlebitis of superficial vessels of right lower extremity (ICD-10) Non-healing lumpectomy wound ?T81.89XA - Other complications of procedures, not elsewhere classified, initial encounter (ICD-10) Other reconstructive surgery as the cause of abnormal reaction of the patient, or of later complication, without mention of misadventure at the time of the procedure ?Y83.4 - Other reconstructive surgery as the cause of abnormal reaction of the patient, or of later complication, without mention of misadventure at the time of the procedure (ICD-10) Cubital tunnel syndrome ?G56.20 - Lesion of ulnar nerve, unspecified upper limb (ICD-10) Pacemaker ?Z95.0 - Presence of cardiac pacemaker (ICD-10) Obesity ?E66.9 - Obesity, unspecified (ICD-10) Hypothyroidism ?E03.9 - Hypothyroidism, unspecified (ICD-10) Osteoarthritis ?M19.90 - Unspecified osteoarthritis, unspecified site (ICD-10) DVT (deep venous thrombosis) ?I82.409 - Acute embolism and thrombosis of unspecified deep veins of unspecified lower extremity (ICD-10) Arrhythmia ?I49.9 - Cardiac arrhythmia, unspecified (ICD-10) PVD (peripheral vascular disease) ?I73.9 - Peripheral vascular disease, unspecified (ICD-10) COPD (chronic obstructive pulmonary disease) ?J44.9 - Chronic obstructive pulmonary disease, unspecified (ICD-10) Asthma ?J45.909 - Unspecified asthma, uncomplicated (ICD-10) Lymphedema ?I89.0 - Lymphedema, not elsewhere classified (ICD-10) Venous insufficiency ?I87.2 - Venous insufficiency (chronic) (peripheral) (ICD-10) Varicose veins of bilateral lower extremities with pain ?I83.813 - Varicose veins of bilateral lower extremities with pain (ICD-10) Surgical History (Updated 11/28/23 @ 14:16 by Grecia Nielsen) Status post ablation of incompetent vein using laser ?Z98.890 - Other specified postprocedural states (ICD-10) H/O gastric sleeve ?Z90.3 - Acquired absence of stomach [part of] (ICD-10) Family History (Updated 11/06/23 @ 09:08 by Estefania Dhaliwal) Other Family history not known due to adoption Social History (Updated 11/06/23 @ 09:09 by Estefania Dhaliwal) Within the past year, how often did you have a drink containing alcohol: never Score interpretation: A score less than 4 is consistent with normal alcohol consumption. Smoking status: Never smoker Non-prescribed substance use: denies use Meds Home Medications and Allergies Home Medications ?Medication ?Instructions ?Recorded ?Confirmed ?Type albuterol sulfate 90 mcg/actuation 1 inh inhalation Q6H 11/06/23 11/06/23 History aerosol inhaler aripiprazole 20 mg tablet (Abilify) 20 mg PO DAILY 11/06/23 11/06/23 History cetirizine 10 mg capsule 10 mg PO DAILY PRN angioedema 11/06/23 11/06/23 History citalopram 20 mg tablet (Celexa) 10 mg PO DAILY 11/06/23 11/06/23 History fluticasone propionate 110 1 inh inhalation BID 11/06/23 11/06/23 History mcg/actuation HFA aerosol inhaler levothyroxine 150 mcg tablet 75 mcg PO DAILY 11/06/23 11/06/23 History (Euthyrox) lorazepam 0.5 mg tablet (Ativan) 0.5 mg PO DAILY 11/06/23 11/06/23 History oxybutynin chloride 10 mg 10 mg PO DAILY 11/06/23 11/06/23 History tablet,extended release 24 hr oxycodone-acetaminophen 5 mg-325 1 tab PO DAILY 11/06/23 11/06/23 History mg tablet (Endocet) rivaroxaban 20 mg tablet (Xarelto) 20 mg PO DAILY 11/06/23 11/06/23 History trazodone 100 mg tablet 50 mg PO DAILY 11/06/23 11/06/23 History zolpidem 5 mg tablet (Ambien) 11/06/23 History Allergies Allergy/AdvReac Type Severity Reaction Status Date / Time No Known Drug Allergies Allergy Verified 10/04/23 14:35 Exam Narrative Exam Narrative: Patient has noticed significant closure and healing of left mid calf ulcer. ITrino MD personally performed the services described in this documentation, as scribed by Estefania Dhaliwal RVT, RDMS in my presence and it is both accurate and complete. I, Estefania Dhaliwal RVT, RDMS, am scribing for, and in the presence of, Dr. Trino Israel and in the presence of the patient. Constitutional Documenting provider has reviewed patient's vital signs: yes Common normals: oriented x3 Lymph Lymphatic: no lymphedema noted Cardio Common normals: regular rate Rate: regular rate Peripheral pulses: posterior tibial pulses present and dorsalis pedis pulses present Extremity Common normals: normal capillary refill General: edema Right lower extremity: upper leg and lower leg Left lower extremity: upper leg and lower leg Neuro Common normals: oriented x3 Results Imaging Venous US: Radiologist's impression: The ultrasound demonstrates bilateral mid/post calf perforators with heat induced thrombus visualized. Assessment and Plan Assessment and Plan (1) Phlebitis and thrombophlebitis of superficial vessels of lower extremities, bilateral: Plan Patient in today for follow up ultrasound of lower extremity following treatment of bilateral perforating vein EVLT completed on 11/28/23. The plan is for the patient to return for Varithena/microfoam chemical ablation right leg. ITrino MD personally performed the services described in this documentation, as scribed by Estefania Dhaliwal RVT, RDMS in my presence and it is both accurate and complete. Estefania Chaves RVT, RDMS, am scribing for, and in the presence of, Dr. Trino Israel and in the presence of the patient.
--- NOTE | 2023-12-12 09:12 | P.DS_ITS ---
Discharge Plan Discharge Disposition: Home, Self-Care Outpatient Diagnostics: VC INJ Foam Sclerosant WUS PRESIDENTIAL SUPPORT SPECIALIST (Routine) Timeframe: 2 Weeks Facility: [facility] - Location: [facility] Ordered By: Trino Israel Follow Up Appointments: 12/18/23 Plan of Treatment: Varithena/microfoam chemical ablation right leg. Print Language: Danish Discharge Date/Time: 12/12/23 09:13
--- NOTE | 2023-12-12 09:12 | W.VEIN ---
Discharge Plan Discharge Disposition: Home, Self-Care Outpatient Diagnostics: VC INJ Foam Sclerosant WUS ACCOUNT STRATEGIST (Routine) Timeframe: 2 Weeks Facility: [facility] - Location: [facility] Ordered By: Trino Israel Follow Up Appointments: 12/18/23 Plan of Treatment: Varithena/microfoam chemical ablation right leg. Print Language: Welsh Discharge Date/Time: 12/12/23 09:13
== END 2023-12-12 09:13 | disposition home or self-care (01) ==
PROVIDERS: PCP Radiology Diagnostic Radiology; Visit Provider Radiology Diagnostic Radiology
DX: I80.03 Phlebitis and thrombophlebitis of superficial vessels of lower extremities, bilateral (principal)
CPT/HCPCS: 93970; G0463

== ENCOUNTER 2023-12-18 08:15 | Outpatient (OUT) | payer MEDICARE, MEDICAID, SELFPAY ==
--- NOTE | 2023-12-17 11:04 | VEINCLINIC_ITS ---
Vital Signs 12/18/23 08:25 12/18/23 08:55 Height 6 ft 3 in Weight 175.087 kg BP 112/74 BP Location Left Brachial BP Position Sitting BP Cuff Size Adult BP Source Manual Cuff Respiration 20 Pulse 78 Pulse Source Monitor Pulse Oximetry (%) 94 L Oxygen Delivery Method Room Air Varicose Veins Patient in this day for microfoam chemical ablation right leg Trino Chaves MD personally performed the services described in this documentation, as scribed by Wild Slade RN in my presence and it is both accurate and complete. IWild RN, am scribing for, and in the presence of, Dr. Trino Israel and in the presence of the patient. medial thigh: bilateral, knee: bilateral, calf: bilateral, ankle: bilateral and munoz: bilateral burning and sharp 6 11 years Worsened in recent months: Yes standing and sitting bed rest, elevating extremities and compression stockings Reports heaviness, edema and leg edema History of lower extremity trauma: No Superficial thrombophlebitis: No Family history of varicose veins: unknown Has patient had previous lower extremity venous surgery: No Patient has previously received the following treatment(s) for lower extremity varicose veins: Reports none Does patient have a history of : not applicable Does patient intend to have future pregnancies: not applicable Has patient had lower extremity venous scan with relux testing: Yes Support hose used: Yes Problems walking or doing physical activity: Yes 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 Wlid Chaves RN, am scribing for, and in the presence of, Dr. Trino Israel and in the presence of the patient. Status of ROS 10 or more systems reviewed and unremark able except as noted in history and below Cardiovascular Reports: edema and swelling of feet/ankles Musculoskeletal Reports: extremity pain and extremity swelling Integumentary/Breast Reports: redness, non-healing lesion and changes in skin color [facility] Medical History (Updated 11/28/23 @ 14:31 by Grecia Nielsen) Phlebitis and thrombophlebitis of superficial vessels of lower extremities, bilateral ?I80.03 - Phlebitis and thrombophlebitis of superficial vessels of lower extremities, bilateral (ICD-10) Phlebitis and thrombophlebitis of superficial vessels of right lower extremity ?I80.01 - Phlebitis and thrombophlebitis of superficial vessels of right lower extremity (ICD-10) Non-healing lumpectomy wound ?T81.89XA - Other complications of procedures, not elsewhere classified, initial encounter (ICD-10) Other reconstructive surgery as the cause of abnormal reaction of the patient, or of later complication, without mention of misadventure at the time of the procedure ?Y83.4 - Other reconstructive surgery as the cause of abnormal reaction of the patient, or of later complication, without mention of misadventure at the time of the procedure (ICD-10) Cubital tunnel syndrome ?G56.20 - Lesion of ulnar nerve, unspecified upper limb (ICD-10) Pacemaker ?Z95.0 - Presence of cardiac pacemaker (ICD-10) Obesity ?E66.9 - Obesity, unspecified (ICD-10) Hypothyroidism ?E03.9 - Hypothyroidism, unspecified (ICD-10) Osteoarthritis ?M19.90 - Unspecified osteoarthritis, unspecified site (ICD-10) DVT (deep venous thrombosis) ?I82.409 - Acute embolism and thrombosis of unspecified deep veins of unspecified lower extremity (ICD-10) Arrhythmia ?I49.9 - Cardiac arrhythmia, unspecified (ICD-10) PVD (peripheral vascular disease) ?I73.9 - Peripheral vascular disease, unspecified (ICD-10) COPD (chronic obstructive pulmonary disease) ?J44.9 - Chronic obstructive pulmonary disease, unspecified (ICD-10) Asthma ?J45.909 - Unspecified asthma, uncomplicated (ICD-10) Lymphedema ?I89.0 - Lymphedema, not elsewhere classified (ICD-10) Venous insufficiency ?I87.2 - Venous insufficiency (chronic) (peripheral) (ICD-10) Varicose veins of bilateral lower extremities with pain ?I83.813 - Varicose veins of bilateral lower extremities with pain (ICD-10) Surgical History (Updated 11/28/23 @ 14:16 by Grecia Nielsen) Status post ablation of incompetent vein using laser ?Z98.890 - Other specified postprocedural states (ICD-10) H/O gastric sleeve ?Z90.3 - Acquired absence of stomach [part of] (ICD-10) Family History (Updated 11/06/23 @ 09:08 by Estefania Dhaliwal) Other Family history not known due to adoption Social History (Updated 11/06/23 @ 09:09 by Estefania Dhaliwal) Within the past year, how often did you have a drink containing alcohol: never Score interpretation: A score less than 4 is consistent with normal alcohol consumption. Smoking status: Never smoker Non-prescribed substance use: denies use Meds Home Medications and Allergies Home Medications ?Medication ?Instructions ?Recorded ?Confirmed ?Type albuterol sulfate 90 mcg/actuation 1 inh inhalation Q6H 11/06/23 11/06/23 History aerosol inhaler aripiprazole 20 mg tablet (Abilify) 20 mg PO DAILY 11/06/23 11/06/23 History cetirizine 10 mg capsule 10 mg PO DAILY PRN angioedema 11/06/23 11/06/23 History citalopram 20 mg tablet (Celexa) 10 mg PO DAILY 11/06/23 11/06/23 History fluticasone propionate 110 1 inh inhalation BID 11/06/23 11/06/23 History mcg/actuation HFA aerosol inhaler levothyroxine 150 mcg tablet 75 mcg PO DAILY 11/06/23 11/06/23 History (Euthyrox) lorazepam 0.5 mg tablet (Ativan) 0.5 mg PO DAILY 11/06/23 11/06/23 History oxybutynin chloride 10 mg 10 mg PO DAILY 11/06/23 11/06/23 History tablet,extended release 24 hr oxycodone-acetaminophen 5 mg-325 1 tab PO DAILY 11/06/23 11/06/23 History mg tablet (Endocet) rivaroxaban 20 mg tablet (Xarelto) 20 mg PO DAILY 11/06/23 11/06/23 History trazodone 100 mg tablet 50 mg PO DAILY 11/06/23 11/06/23 History zolpidem 5 mg tablet (Ambien) 11/06/23 History Allergies Allergy/AdvReac Type Severity Reaction Status Date / Time No Known Drug Allergies Allergy Verified 10/04/23 14:35 Exam Narrative Exam Narrative: Trino Chaves MD personally performed the services described in this documentation, as scribed by Wild Slade RN in my presence and it is both accurate and complete. I, Wild Slade RN, am scribing for, and in the presence of, Dr. Trino Israel and in the presence of the patient. Constitutional Documenting provider has reviewed patient's vital signs: yes Common normals: oriented x3 Lymph Lymphatic: no lymphedema noted Cardio Common normals: regular rate Rate: regular rate Peripheral pulses: posterior tibial pulses present and dorsalis pedis pulses present Extremity Common normals: normal capillary refill General: edema Right lower extremity: upper leg and lower leg Left lower extremity: upper leg and lower leg Neuro Common normals: oriented x3 Assessment and Plan Assessment and Plan (1) Varicose veins of bilateral lower extremities with pain: Plan f/u evaluation with physician along with right leg limited u/s Trino Chaves MD personally performed the services described in this documentation, as scribed by Wild Slade RN in my presence and it is both accurate and complete. I, Wild Slade RN, am scribing for, and in the presence of, Dr. Trino Israel and in the presence of the patient. Procedures Procedure Instructions Procedures Right leg microfoam chemical ablation/Varithena: Risks and benefits of the procedure were discussed at length and informed written consent was obtained.? Time-out procedure was performed and the correct patient and procedure were confirmed.? Staff present during time-out: Wild Slade RN and Trino Israel MD.? Patient prepped and procedure performed in usual sterile fashion.? Patient was placed in Trendelenburg prior to Polidocanol/Varithena injections. Sclerosing Agent:?? 14cc 1% Polidocanol/Varithena Site Injected: Right lecc varithena administered in to a 5mm varicose vein right distal medial lower leg 8cc varithena administered in to a 6mm varicose vein right right mid anterior lower leg 1cc varithena administered in to a 3mm varicose vein right medial ankle 1cc varithena administered in to a 3mm varicose vein right lateral ankle Number of Injections:? 4 The patient tolerated the procedure well without complication.? Hemostasis was obtained and thigh-high compression stocking was applied with foam pads.? Instructed patient to wear stocking for at least 96 hours and sleep with it and only remove for showering.? The patient was instructed to? wear stocking for 2 weeks.? Patient verbalizes understanding and states they will comply.? Patient was given post-procedure instructions. Patient was discharged in good condition.? Scheduled to undergo limited venous ultrasound and? exam on 12/24/2023 ITrino MD personally performed the services described in this documentation, as scribed by Wild Slade RN in my presence and it is both accurate and complete. IWild RN, am scribing for, and in the presence of, Dr. Trino Israel and in the presence of the patient.
--- NOTE | 2023-12-17 11:08 | W.VEIN ---
Discharge Plan Discharge Disposition: Home, Self-Care Outpatient Diagnostics: [facility] Facility EST LMTD (Routine) Timeframe: 2 Weeks Facility: [facility] - Location: [facility] Ordered By: Trino Israel VC EXT Venous RT LMTD (Routine) Timeframe: 2 Weeks Facility: [facility] - Location: [facility]in Center Ordered By: Trino Israel Follow Up Appointments: 12/24/2023 Plan of Treatment: f/u evaluation with physician along with right leg limited u/s Patient Instructions: Polidocanol (By injection) (Austin Sullivanthekathy) Print Language: Swazi Discharge Date/Time: 12/18/23 08:57
--- NOTE | 2023-12-18 08:16 | VEIN_ITS ---
[address] [address] Patient Name: YRN RICARDO MRN: [id number] date: 1960 Sex: M Assigned Patient Location: Current Patient Location: Accession/Order Number: [id number] Exam Date: 12/18/2023 08:16 Report Date: 12/18/2023 09:59 At the request of: LEONID SCOTT Procedure: VC INJ Foam Sclerosant WUS BACK ROLL LATHE OPERATOR PROCEDURE: VC INJ Foam Sclerosant WUS BACK ROLL LATHE OPERATOR COMPARISON: None. HISTORY: I83.813 - Varicose veins of bilateral lower extremities w... Pre-operative Diagnosis: CEAP class C6 venous insufficiency with pain, tenderness, edema and incompetent right saphenous and varicose vein(s), chronic venous insufficiency right leg secondary to venous incompetence Post-operative Diagnosis: CEAP class C6 venous insufficiency with pain, tenderness, edema and incompetent right saphenous and varicose vein(s), chronic venous insufficiency right leg secondary to venous incompetence Procedure Performed: 1. Ultrasound-guided microfoam chemical ablation with Varithenaregistered 2. Intraoperative ultrasound guidance Anesthesia: None Indications for Procedure: 63-year-old male who presents with a long history of lower extremity pain and swelling skin thickening hemosiderin staining in venous stasis ulcerations. The patient failed conservative medical therapy including medical compression stockings, exercise and analgesics. Prior procedures include endo venous laser ablation. Multiple incompetent varicosities of the right leg. Duplex scan showed reflux and enlarged diameters up to 6 mm. The patient underwent informed consent including management options where the complications of infection, bleeding, pain, and skin injury were discussed. Particular attention was spent discussing thrombus extension and deep vein thrombosis as well as the possibility of pulmonary embolus and treatment with oral or injectable blood thinners. Procedure: The patient walked to the procedure room. All applicable staff donned appropriate apparel. A procedure timeout was performed to confirm correct patient, correct extremity, correct procedure, and correct room set-up including presence of all applicable supplies, devices, and drugs. A duplex ultrasound, performed by myself confirmed the location and incompetence of branch saphenous varicosities and their course was marked on the skin together with the dilated tributaries. The extent of treatment of the vein and the associated varicosities was determined through ultrasound mapping. The skin was prepped and then punctured with a butterfly needle and advanced under ultrasound guidance. The Varithenaregistered canister was activated and the canister was primed and purged as required in the instructions for use. Varithenaregistered was drawn into a sterile syringe. The following injections were made: 4 cc injected into a 5 mm varicose vein right distal medial lower leg 8 cc injected into a 6 mm varicose vein mid anterior right lower leg 1 cc injected into a 3 mm varicose vein medial ankle 1 cc injected into a 3 mm varicose vein lateral ankle Varithenaregistered was slowly administered at 0.5-1.0 cc/second with close observation by ultrasound of its course in the vessels. Total volume utilized was: 14 cc. Following administration of Varithenaregistered the leg was elevated and the patient was asked to repeatedly dorsiflex the ankle to limit flow of Varithenaregistered into perforating veins. Once appropriate spasm had been confirmed in the treated veins, the vascular catheter was removed from the leg and light pressure was applied over the puncture site for hemostasis. The common femoral and deep superficial veins were then evaluated for flow and compressibility prior to dressing placement. The lower extremity was kept elevated at 45 degrees above the horizontal and cording material was applied over the saphenous segments and tributaries to allow for eccentric compression over the target vessels including the targeted saphenous vein(s). A multilayer dressing was applied consisting of foam pads, coban and thigh-high 20-30 mm Hg compression elastic support hose were placed on the patient. The leg was lowered only after compression had been applied and the patient was immediately ambulatory. The patient ambulated 10 minutes under supervision and was without apparent concerns at time of release. Post-care instructions include advising patient to keep post-treatment bandages in place and dry for 48 hours, avoid extended periods of inactivity, avoid heavy exercise for one week, wear compression stockings on the treated leg continuously for two weeks, to walk daily for 10 minutes over the next month. The patient was instructed to take an anti-inflammatory medicine as needed and to follow up for color duplex scan of the Saphenous veins, the treated branch saphenous varicosities, the adjacent deep veins, and additional treatment within 7 days. PERSONNEL: Grecia Frazier Electronically authenticated by: LEONID SCOTT Date: 12/18/2023 09:59
--- OUTSIDE RECORDS SUMMARY | 2023-12-18 08:23 | XMS_ITS | CCD ---
Author Organization [facility] Inform ion [facility] Care Team Providers Care Assistant Art Director Name Role Phone SERAFIN SHEARER Referring Unavailable LESLY MELCHOR Primary Care Unavailable SERAFIN SHEARER Referring Unavailable LESLY MELCHOR Primary Care Unavailable SERAFIN SHEARER Admitting Unavailable SERAFIN SHEARER Attending Unavailable LESLY MELCHOR Primary Care Unavailable Lesly Melchor Primary Care Provider CONSUELO DELGADILLO Referring Unavailable LESLY MELCHOR Primary Care Unavailable Lesly Melchor Primary Care Provider Lesly Melchor MD Primary Care Provider [phone] LESLY MELCHOR Referring Unavailable LESLY MELCHOR Primary Care Unavailable OLAF CAIN Attending Unavailab LESLY Concepcion Referring Unavailable LESLY MELCHOR Primary Care Unavailable Melo Quiñones Admitting Unavailab Melo Frederick Attending Unavailab Lesly Concepcion Primary Care Unavailable PETER Redmond Attending Unavailable PETER Redmond Admitting Unavailable LESLY MELCHOR MD Primary Care Unavailable Ankita, Srinivas R Admitting Unavailable Dolmegan, Srinivas R Attending Unavailable LESLY MELCHOR MD [...] Ai Attending Unavailable Lamarca, Ai Admitting Unavailable KAREN ZAPATA, LESLY To [...] Primary Care Unavailable PETER Redmond Attending Unavailable LESLY MELCHOR MD Primary Care Unavailable PETER Redmond Admitting Unavailable PETER Redmond Admitting Unavailable PETER Redmond Attending Unavailable LESLY MELCHOR MD Primary Care Unavailable PETER Redmond Admitting Unavailable PETER Redmond Attending Unavailable LESLY MELCHOR MD Primary Care Unavailable PETER Redmond Admitting Unavailable PETER Redmond Attending Unavailable LESLY MELCHOR MD Primary Care Unavailable Veda Barnhart Attending Unavailable Siddhartha Barnhartgyi Admitting Unavailable LESLY MELCHOR MD Primary Care [...] Propensity to adverse reactions to drug (disorder) [facility] Repository Medications Current Medications Medication Drug [...] hours as needed for pain. 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] Onset: 9 12-03-2018 [...] Test Name Value Interpretation Reference Range Facility .Auto Diff 1on 12-11-2023 Auto Scott % 10 % Normal 1-12 [facility] Comment on above: Performed By: #### 1 [id number], [id number], [id number], [id number] ####[facility] (DEFAULT)[address] [place] [address] Baso Abs# 0.1 x10 Normal 0.0-0.2 [facility] Comment on above: Performed By: #### 1 [id number], 2308457, [id number], [id number] ####[facility] (DEFAULT)[address] [place] [address] Basophils/100 WBC (Bld) 1.4 % Normal 0.2-2.0 [facility] Comment on above: Performed By: #### 1 0955533, 4440911, [id number], [id number] ####[facility] (DEFAULT)[address] [place] [address] 95934 Eos Abs# 0.4 x10 Normal 0.0-0.4 [facility] Comment on above: Performed By: #### 1 7622259, 5336894, [id number], [id number] ####[facility] (DEFAULT)[address] [place] [address] Eosinophils/100 WBC (Bld) 8.0 % High 0.9-4.0 [facility] Comment on above: Performed By: #### 1 0795764, 2189831, [id number], [id number] ####[facility] (DEFAULT)[address] [place] [address] Lymph Abs# 1.4 x10 Normal 1.3-2.9 [facility] Comment on above: Performed By: #### 1 9545048, 3088835, [id number], [id number] ####[facility] (DEFAULT)[address] [place] [address] 43665 Lymphocytes/100 WBC (Bld) 26 % Normal 14-48 [facility] Comment on above: Performed By: #### 1 8143727, 6006035, [id number], [id number] ####[facility] (DEFAULT)[address] [place] [address] Scott Abs# 0.6 x10 Normal 0.0-0.8 [facility] Comment on above: Performed By: #### 1 2851770, 7765763, [id number], [id number] ####[facility] (DEFAULT)[address] [place] [address] Neut Abs# 2.9 x10 Normal 1.5-9.2 [facility] Comment on above: Performed By: #### 1 7260349, 5051987, [id number], [id number] ####[facility] (DEFAULT)[address] [place] [address] 77668 Neutrophils/100 WBC (Bld) 54 % Normal 44-88 [facility] Comment on above: Performed By: #### 1 0681171, 6319525, [id number], [id number] ####[facility] (DEFAULT)[address] [place] [address] 08897 CBC w/ Auto Diffon 4 Erythrocyte distribution width (RBC) [Ratio] 15.4 % High 11.5-15.0 [facility] Comment on above: Performed By: #### 1 7742399, 4666516, [id number], [id number] ####[facility] (DEFAULT)[address] [place] [address] 79900 Hematocrit (Bld) [Volume fraction] 43.6 % Normal 34.8-51.9 [facility] Comment on above: Performed By: #### 1 0635930, 1841551, [id number], [id number] ####[facility] (DEFAULT)[address] [place] [address] 54830 Hemoglobin (Bld) [Mass/Vol] 14.3 g/dL Normal 11.8-17.7 [facility] Comment on above: Performed By: #### 1 5465013, 8984699, [id number], [id number] ####[facility] (DEFAULT)[address] [place] [address] 83131 Man Diff? Auto Invalid Interpretation Code [facility] Comment on above: Performed By: #### 1 4983734, 5942911, [id number], [id number] ####[facility] (DEFAULT)[address] [place] [address] 72414 MCH (RBC) [Entitic mass] 30 pg Normal 24-34 [facility] Comment on above: Performed By: #### 1 8343384, 5475009, [id number], [id number] ####[facility] (DEFAULT)[address] [place] [address] 89656 MCHC (RBC) [Mass/Vol] 33 g/dL Normal 26-37 [facility] Comment on above: Performed By: #### 1 8851800, 6472485, [id number], [id number] ####[facility] (DEFAULT)[address] [place] [address] 32022 MCV (RBC) [Entitic vol] 93 fL Normal 81-100 [facility] Comment on above: Performed By: #### 1 4607407, 6297159, [id number], [id number] ####[facility] (DEFAULT)[address] [place] [address] Platelet 137 x10 Low 138-427 [facility] Comment on above: Performed By: #### 1 3621177, 7922211, [id number], [id number] ####[facility] (DEFAULT)[address] [place] [address] Platelet mean volume (Bld) [Entitic vol] 7.5 fL Normal 6.3-10.2 [facility] Comment on above: Performed By: #### 1 7159555, 3503995, [id number], [id number] ####[facility] (DEFAULT)[address] [place] [address] RBC 4.68 x10 Normal 3.70-5.30 [facility] Comment on above: Performed By: #### 1 9976268, 1762972, [id number], [id number] ####[facility] (DEFAULT)[address] [place] [address] WBC 5.4 x10 Normal 3.5-10.5 [facility] Comment on above: Performed By: #### 1 6946903, 5614130, [id number], [id number] ####[facility] (DEFAULT)[address] [place] [address] Standardon 12-11-2023 eGFR Non AA 58 mL/min/1.73m2 Invalid Interpretation Code [facility] Comment on above: Performed By: #### 1 6386308, 4267765, [id number], [id number] ####[facility] (DEFAULT)[address] [place] [address] eGFR AA >60 Invalid Interpretation Code [facility] Comment on above: Performed By: #### 1 3792602, 1637836, [id number], [id number] ####[facility] (DEFAULT)[address] [place] [address] Albumin [Mass/Vol] 4.0 g/dL Normal 3.5-5.0 [facility] Comment on above: Performed By: #### 1 7014493, 6458980, [id number], [id number] ####[facility] (DEFAULT)[address] [place] [address] 14550 Alk Phos 79 IU/L Normal 32-91 [facility] Comment on above: Performed By: #### 1 8671709, 3099759, [id number], [id number] ####[facility] (DEFAULT)[address] [place] [address] 57355 ALT [Catalytic activity/Vol] 23.0 U/L Normal 17.0-63.0 [facility] Comment on above: Performed By: #### 1 8426861, 8667475, [id number], [id number] ####[facility] (DEFAULT)[address] [place] [address] AST [Catalytic activity/Vol] 27 U/L Normal 15-41 [facility] Comment on above: Performed By: #### 1 7395603, 1757035, [id number], [id number] ####[facility] (DEFAULT)[address] [place] [address] Bili Total 0.8 mg/dL Normal 0.3-1.2 [facility] Comment on above: Performed By: #### 1 7030908, 8724601, 7782841365, [id number] ####[facility] (DEFAULT)[address] [place] [address] 20555 Calcium [Mass/Vol] 8.4 mg/dL Low 8.9-10.3 [facility] Comment on above: Performed By: #### 1 9644775, 1095442, [id number], [id number] ####[facility] (DEFAULT)[address] [place] [address] 71579 Chloride [Moles/Vol] 106 mmol/L Normal 101-111 [facility] Comment on above: Performed By: #### 1 3319737, 3001024, [id number], [id number] ####[facility] (DEFAULT)[address] [place] [address] 71744 CO2 [Moles/Vol] 29 mmol/L Normal 21-32 [facility] Comment on above: Performed By: #### 1 9825846, 7844629, [id number], [id number] ####[facility] (DEFAULT)[address] [place] [address] 67831 Creatinine [Mass/Vol] 1.26 mg/dL Normal 0.90-1.30 [facility] Comment on above: Performed By: #### 1 2251483, 3329292, [id number], [id number] ####[facility] (DEFAULT)[address] [place] [address] 92851 Glucose [Mass/Vol] 88.0 mg/dL Normal 74.0-118.0 [facility] Comment on above: Performed By: #### 1 2372560, 2438217, 6351291382, [id number] ####[facility] (DEFAULT)[address] [place] [address] 30557 Potassium [Moles/Vol] 4.1 mmol/L Normal 3.6-5.1 [facility] Comment on above: Performed By: #### 1 5275487, 9461956, 9886686987, [id number] ####[facility] (DEFAULT)[address] [place] [address] 72078 Protein [Mass/Vol] 7.7 g/dL Normal 6.5-8.1 [facility] Comment on above: Performed By: #### 1 9815432, 7200317, 8999633085, [id number] ####[facility] (DEFAULT)[address] [place] [address] 60651 Sodium [Moles/Vol] 137.0 mmol/L Normal 136.0-144.0 [facility] Comment on above: Performed By: #### 1 7584231, 8558020, 8933356045, [id number] ####[facility] (DEFAULT)[address] [place] [address] 74796 Urea nitrogen [Mass/Vol] 16 mg/dL Normal 8-26 [facility] Comment on above: Performed By: #### 1 6942334, 0255254, [id number], [id number] ####[facility] (DEFAULT)[address] [place] [address] Albumin/Globulin [Mass ratio] 1.0 {ratio} Low 1.4-2.6 [facility] Comment on above: Performed By: #### 1 7102878, 1268728, 5096841857, [id number] ####[facility] (DEFAULT)[address] [place] [address] Anion gap [Moles/Vol] 6.1 mmol/L Normal 5.0-19.0 [facility] Comment on above: Performed By: #### 1 9853158, 6249858, 7740105469, [id number] ####[facility] (DEFAULT)[address] [place] [address] 29805 Globulin (S) [Mass/Vol] 3.7 g/dL Normal 1.5-4.3 [facility] Comment on above: Performed By: #### 1 0801327, 2437052, [id number], [id number] ####[facility] (DEFAULT)[address] [place] [address] Osmolality 274 mOsm/L Invalid Interpretation Code [facility] Comment on above: Performed By: #### 1 2442373, 8954701, 6451363482, [id number] ####[facility] (DEFAULT)[address] [place] [address] Urea nitrogen/Creatinine [Mass ratio] 12.6 mg/mg Normal 4.6-16.2 [facility] Comment on above: Performed By: #### 1 9862773, 8654243, [id number], [id number] ####[facility] (DEFAULT)[address] [place] [address] 04864 Lipid Panel Standardon 12-10 Cholesterol [Mass/Vol] 150.0 mg/dL Normal 66.0-200.0 [facility] Comment on above: Performed By: #### 1 5194841, 1805280, [id number], [id number] ####[facility] (DEFAULT)[address] [place] [address] 88874 Cholesterol in HDL [Mass/Vol] 51 mg/dL Normal 40-71 [facility] Comment on above: Performed By: #### 1 0234266, 4008121, 5199926482, [id number] ####[facility] (DEFAULT)[address] [place] [address] 03078 Triglyceride [Mass/Vol] 73.0 mg/dL Normal 0.0-150.0 [facility] Comment on above: Performed By: #### 1 9148378, 3401213, 7800952360, [id number] ####[facility] (DEFAULT)[address] [place] [address] 27162 Cholesterol in LDL [Mass/Vol] 85 mg/dL Normal 1-100 [facility] Comment on above: Performed By: #### 1 3203254, 7355663, 6585889469, [id number] ####[facility] (DEFAULT)[address] [place] [address] 03037 Cholesterol.total/Choles terol in HDL [Mass ratio] 2.9 {ratio} Normal 0.0-4.5 [facility] Comment on above: Performed By: #### 1 5188774, 9539545, 2182408873, [id number] ####[facility] (DEFAULT)[address] [place] [address] 21137 VLDL. 15 mg/dL Normal 5-40 [facility] Comment on above: Performed By: #### 1 2369840, 0242427, [id number], [id number] ####[facility] (DEFAULT)[address] [place] [address] 47929 Provider Orderson 12-11-2023 Provider Orders [id number] Normal [facility] Coding Summaryon 12-05-2023 [facility] GhvbufbgYGx5aAa+PGhl YWQ+TP9HAENiI07daVFf pZ4zA6KTJImGDuqsAQXF AZeSCqApjiTzBN7msYRa ZXJu IC8+OH7dFASrXrtujHXl j2V0mNR5R76vkw8iFUfa nSV1OQMbBkZkwnctv2kv uKv8FDsiGcnvKfIf PADlwE04FQN0eI86Vi85 gPKfbZPnp4zomXk4WjOr ZLMdMJH6pQzjBNmhm2Uf JGEcE57nbSTuk1I7 IGNvbGxhcHNlOyBlbXB0 xV9kGMkibxdvk9tsqcvm Izt9qu77lWCoh8T7bEK9 Z7NlvsZ5MMKbxEPu HlozxNTWnN5gjfsnc0ji lnyvCuBzFUZeFNr3EWc0 JXHbvGdcNtTkLF75ACB9 EVLqrpIdJ6GhWJBm vFxnJxC9i6O6Hm0KB6ZA XpjgC0OIKMIOUZmwpBF+ OL85lb83W4XfHiblTiu2 CTXfBCA2mJT8zK0e HONqCTxts5P1fNV5G1Tq mwLmeu1tb2lmHZOmMFvj T01avGNnt7C3ZKCzhAE3 EAQdyZiqIwVqwJ94 Oyc+EKVwfYhqx7WoOwsj a9uht9miuAo2CbhpAIZr mkHjvTtgCAM3u9OpFc4b PGFniIF9vIY5uP0q NtKyZoE5BTbbZ654FvOr sSUdUygbU45bP6OzzZK+ XKHgAjx8AQWcjFryFG1s B0IiJDDwcbxpsYYd kQykAM6rPRYmictnFJVv tY3wEHNoU0c0CnBgFoU2 NRotT3VmTIGxekjbCf95 mD8bNwFpZdO9ACys Z2HhgeI0ELMjbZWtXOxd DRL5E33do8H9NPXeIAVh QKB0pCG4lK2qePmwugbs bGVmdDsgdmVydGlj XIflVCukT682JBKibKot PkNvZGluZyBEYXRlOiAg MDgvMDEvMjAyNDwvdGQ+ NAXgANZ5mWneUKRy ySGxSNafYf1woUsznDmx DR3xDMQoaiuaOCHdiZ0u PXAnsVAvnSxlMD7wKULc qjsvg552KwFeQIB3 ONBiaGHjA0VqpJ5oYsZk ZZNtRCVfW3FlsWMsMYkd E423EQfqCxG0OUXlcvZz W3WmPKRcsJyuBsN1 c8Q6Rm5Zi7RlxuqdW6Ac aCMmQnMaSpdfOIh6J8Dh PjwvdHI+WP59DEGjCE72 LEv7AZJ0wCvjPCto OGQjB0EipG4nFaIlELId ZGRkOyc+PHRhYmxlIHdp ZHRoPScxMDAlJyBzdHls VI8pWv9jAACxYMHa qHgmjLYaLnNtf8bxWDVi EUsaQR5adXyiC3ZzcOP0 YBMbc7f4Nc42G98jL9Yq dXA+NEQruEQ1fKU8 gH3gXlNqUzR1YYtpI898 OaYjeSIlUpktj7ktj2he zEm1YsR6RFBasdBjeBzc DYV6e6RlUg19A04a IHdpZHRoPSIxNSUiIHZh vBgejt8ktD7kFa7+PGNv vTU4iKJ3wO8rSlAvYnS8 CBdxB658QsNsqWMf Ancoy6bxy3mbjHn4SyMg IHHhsgZksAvmVIV0j8Jd Qr01N4QswCkag4SqNvy6 ct71cWXzc7I3vEC4 Q5OyTJAihwmqwXJcxPgf XP2uWIIvxyxtIEFpnF1h DGItP5x3YbJcVmT3ZVkq S2SstdB8TKJjxQFg CAQqdPWZmB1wfwckv2pv svrwChOjDUUsNTz9CYy4 OUVyhSryChWvESQ0UyP7 ELS3eMAtzL4kgXba rttknF8sKmj+SHQ6tUZe mVMBXY0sAytnnJG+PHRk CPL9eBcnDNnhNWYkeY4q KBKhK6o3WfSvQfW8 JGlgX1IvzlW0UPZprTJv ZMOomVEPrE1mhlihs5ti wstzBaFpYIJgEUx0FAb1 LWFsaWduOiBsZWZ0 ZnV2LHQ6kRAmxD8ydVja zeqfmA0nRvu+QmlydGgg CJC2LKs7D4MmXvs2MTHm pFilKL1qbLGgSUgp Lr9ggPxemGmvUJ7qTQLz hewin481MeOwa4ymFFUu pZGaPQmdTVO4Q89ly9H8 YZVaVMOvOVF0rLR0 iU1iaLbssicbaEVddJsx fwNehZdiZZowFMnkI891 FMDlcIupBbFkSEl0J1Mj Axc6LXMvkZaoOU2b vNMeCPrhDi7fxHpjaLjl DW0qTJSfamknx573FqAk z6rdENMeiYQaHPcvLFK9 P26ys0X9EUEjFWLw BCM2gJH9dE5twGlpmnxe bGVmdDsgdmVydGljYWwt NOhjZ171WUFqxQgrRlWf cZo1M5IrJlu3CXBe oKjrEL1sxVYqJNvbVi9e kCkymBbnLI2cVLMnrcok n461YzAid7lpIFDuoESo FRmhWXJ7G50dd3G7 UODwPURdMMG7jHO5rZ5s bGlnbjogbGVmdDsgdmVy aRixIDwaNRiuH033VQMn cDsnPlBhdGllbnQg GTisLZm2X0FfSmlxkPI+ JX00VYJrNI70uOSzyMNo v8czcJj6EfXrRQIfAMB8 mEkcYZzlq8MlUJAs M73inPPjx7F0WNRbgFly kTGmOuVevCO7yU5lUVpn gjrpn8pugnivLuktv5wj av37pM19I11wHSgp ZHRoPSIzMCUiIHZhbGln yz9kxG9lGf8+PGNvbCB3 rYO0oJ9gRQVyJwX1YWal A760RzUwdYOoSbku a5sou7zirVs3HpN3KEKp ewDrxGerIJP0h6DsZp07 N88lBDieWGOeOGIxSLPu NIJlkGcxve9loH7y Ii8+HFRtuWK6oSN3dT5g CeLcYgL4KRfhZ976XmAv rYTbDjioI89mZ4UguEF+ LGMoRgr7TWWboQvo RM5smGHxBWbjHg6aYQN3 JrNgCjNlHCgcC1ThGJZd pyydvlcwvUW2XMTiJRYi gS21An4cgNctYYQa xHOQbQ6uxqglj4rpqwjm DkQhJWLyWIh6DBw1LACo hZsfSkUwOIE1UxH1WHY1 qTChoN0zkWnuzsza fF5sN9NiGZLpoepkKp36 mW8xTwAtQuT5USyaEmk+ K2MKFlmmNT1OC6xXUOkw SzwvdGQ+PHRkIHN0 eFnjYRezYTUpqK8yUVDf C6o9DbXuOlY7XZzgR9Xo XYKdfbdzHq37vK9qJfPu TzJ2GGobG5SuxfG1 OBXwqQZgDPlxWSE7C66u s0L1EFSqNADhKXF9jFP8 vL6grKoaravhlDSoxOep dmVydGljYWwtYWxp E276HDXtbQwoKgGyEoN6 GgR9IdV0Y0BhBle3ZNZk nSskSD1mjYRrBPnmDc8j uLlobWawTM6vLBAv qbskNKYjzG3gFMUyuPRt uHgkVC1hRRUzkcxpa861 MaGjEAV5PURxyRBlR4Dj vK2mInBkXPLbABZd L4WtgONoXQtrW960YMyl DjM6XHZagnOaM9JgAXKq sFbdWxY0l0J4Sc85ZAEP ZWFyczwvdGQ+PHRk OCC1wAqpRNcrICXzyA8m ZJMiW0v7ViWbLfR7UXlg P3UlJMVftoroBk79cO0m NlSiYzG2PXwdB6Rs qnM9VRHrnEVmMUsdYCB6 H18cl4I0CFTlBGVcRAW5 cWY6mM4oqUjyqzyurCBq dDsgdmVydGljYWwt VJtxB022JEDmwUqqSh7O KRK2V0FpDfe3TDOgmPxi KZ9nrGSvFXjpBt9ayFot fZhjFU8uWESkfxas OFWmfP0cLNFlrLPxyWht UH4pFSVpgveye614HuYb ZTB2FFHvvITdI9OaiS5k JxFdJUXfFQDxN2Ie nOWuUOdxM670QWcgAdC8 TGEkudXdA7FnYNWwrApg IgG4s6H6Bb7FHCsoaWY+ KZ39op68A9HdSvlt Dtp1VICxAXJ1hBL5hY8t CYIlGNtfb0J2zTJ8E8Yw oxRkwx3oi9ppQAFoJGme K26ybOWff3S7BMVp dLJ3ELNidBqzPrOdeK52 Oyc+EIXdmNsjk3RqEfxh t6trf8gxpMb2GrOwNVSs tuXyoMrmENC7l2Fh Bg56P74lSUbtXUYmZNAl IMKcBWSinNvvrf2bzA9a Ii8+DAZodTA0dCN5mQ9x VbBpSnA2LMqnY688 TpTnzTCoSfrkw0zoc0ml zNy8BcQjIKZyhoTlvRdd GFY1r9BkRf49E1UioPkn y9DwXsj2gx02jUGx w9H4lDU4N9FfMKXrqngs pWJniFbmAR7mNBFyefjv UYXsbC8vYHKcF4s9KpJe LmY7RWooZ4YbnvS7 NGYgmJTyJSOcxGYUpY2o jwely8qndcqqJbQcRDOw SJv6OYu9EMAoeQhmPnRz OIM2GeK7LYD7hZLs wD9myMnqjsynfX8gJyz+ PKp9m3lyiWVxGU9peZR6 US32VV58kPBbw3W4tON7 S6EbGMCvqayeoyia oYW5RHThKUKcgU21Yn0l pIrbQn9lOPXqZJR4ZFZo uMWjB0YfrB3rAeTcYTPq TSTqN7TgpMErLIqj D915SSdnHiZ4XWTjpvCp D6NnTRIwuGhcPbV9r9V6 Dc0NGZ25EH16ZF81yRIk w6C6mIU4V3ApAPMo doaddbuuaOH8QXSnQNBg jL86Jh5kcUxbFw2kNAWf VJA7ZSBwuINpF1PzlP7q HjPuDHGvHDFeW9Qc rZTxMEdyG311ONldVzY4 CEEryuVhM4ZsQSUovMay NiD4m9E0We3NDr24QO41 YY44rWYcr5P7qLZ9 R4ZmKSTtlfqxzkfoxGO3 MCBbKPKqlZ19Yu5ibClj Ar2fUUBqEML9SSWgsZWh H2KheF6fNnNlPOCo DTAcX3LrlQIoQIslM591 RUbiQrL0ENVfwhPtW3Dt SROlzAshLiB0h8W9Tm4X HTwuigs8I3PdMtdd dHI+SV27SHIyZW18kOKt qXRig1xryDg4VrYcUAJg KTH7aOrfMDsst4MaQVSa R59nlRCdd4A3GHBs bGx (more content not included)... [facility] Coding Summaryon 12-02-2023 Coding Summary HTMLBase 64 ByzehvoaZYc8uAk+PGhl YWQ+NQ4HQIHiL28crSRm qY6zU9WMJNbZSusbOOSN FMcWXzPyfxCmZK0nwWHd ZXJu IC8+ZK0rIWQkPibozUKv e1P2zGT8T62haz2lGYki jKR8BBZdReDdukipm7dc vBf6BLlcXvjzWvOp QLHwiY94VPC6iI53Sd91 jJAtqIKit7cipCi2AvGs JJFyNGR7sVosZJqdy7Bk XQXoE62utCXzf2Q0 IGNvbGxhcHNlOyBlbXB0 qE1tEFcltcoak8qgeqws Hth7bg28yRNft4S1oLX2 E6LpvlF5EQSspRDl SoyhaWQCjO9ftdirj1fp mxpwBuSuCBJaEFm9GOv1 RUYgsKygAeQkYK82RCX2 LGFkdxNdE9OtOWWy sFtuUbJ8g6G7Vt4XN8CD OelfQ1FJNXIOCDawtME+ PT94rj11E4UhRfrxJzu6 KIThILC5hRO4lQ5u FNGoYEjvv0W4tVM8Z1Ed emSyaw1oy0sgUSPvDPkr F35teTHzo4Q3OYMdkMX6 LFAfiDilDyLrzB79 Oyc+PMKlqYuki5MoNglz q8neh8ehgAo7VteeYHMp dxUuiQzdLOA2d1ZlHv5a TVBbvEK4vUF8gK0k PcNkPkD8QKskP780XfUk bMRwUkphZ04bO2TzbJW+ FCFdTjz2UJGldLuuWO5z J7TiGSKdtfcljDDi fCklRO8vNYRrvqilZTYh nP0fLROqX6g3QgTiFeE2 WVjhZ7KkEETnkkypWm51 lF6iWmIjKhS5NAio T9UmdnJ5JFLbjMJrBZzb IND3G21cj9E5EZLlQLWp KVD6rVE4mZ9skTzxjrqj bGVmdDsgdmVydGlj XSueHIqrK919UDXbbEbm PkNvZGluZyBEYXRlOiAg MDcvMjkvMjAyNDwvdGQ+ UKBbTWR5kKljPVAz rBQmPPnqEi9fzSplwIfx YN7iWRUoxzuzDPHecZ7h JAOrdDMfkCxbHQ5gFODp vpiew602WlKuLLW7 RCWzoJQzE4BuvY7pKvWx ITYyPVKkS0FjiNNuLJfb H460TOgyPnV0QAVygoGn V5MoZOBxcIuvRrA5 w9X6Cm2Lg2XajbrwQ0Ow gBEoIsIwEhljSZx9K7Lz PjwvdHI+CX58MOVgGL92 ZVf0HVJ3jOvvIAxa RUPkL7WfsF5iDlFwRBXr ZGRkOyc+PHRhYmxlIHdp ZHRoPScxMDAlJyBzdHls ZD2aBt8gOVCcPEJg aIijzMGjHxNts1qkZHAb KQgcAU2ziJawU9AnxEE0 TTZxa7r5Rr13N22tH4Cn dXA+JMZmmGP1wIB2 wE6lZpEtVhJ6HVtcL439 GgJxxVYvGlqvg5dqf9jg fNh9AwM3ISJdjuVcrRzq KMY1w2XoSb54T40q IHdpZHRoPSIxNSUiIHZh uTjzob5qfO0vBb7+PGNv dJF2wLX4mZ0nBeNgXgV3 HNpdC058FqYvjJSg Rrhgv8pix6eknTz1BqGn OUOavsTjbLexQZH0a0Be Zd81U9RjnUqnl7SsBpu0 dp48rXCuz6Z3gHE2 A6GjCGLxpxojqXJjqJep TJ4dPIIjagbzHVPxwL1a JRMjL5n4IeQvIhL3BOzt B1BhbzP0SVCcyISh SLKutJVCsN5acsrsd8sr sjjlMpEvOKFxSOp2ZYv6 PUMtyVaiIyVuZOK7SxD1 TNW7uLHyfP0fiCbn ednawA4cEnv+WWG3yWWg hEQPSH5xWnzdoHK+PHRk JMD7sLsnTNtfXZFtbP1u QUQjG0d4ShPkOrH7 REnxN7BfzbG3PPFsfFTg GAEyoTYYnH4fxeptp2ne qoufPxBzFUNsUWz6NFi3 LWFsaWduOiBsZWZ0 YpU1VZF2dVAkdB7pkEjw mmctnT3cArr+QmlydGgg GLT1EVl2I9RdGfg7BMSz lCtiZC2zkQXdUAnu Vl6rkVtuuSmpJI1eLRLc potzi663BnEsn8tqDBRd oAOzMRndWDJ4I48jv3D4 UJXtAVKqTLP0mKI4 tH1uoAhovajsjFXjyNyv haMlaUtzPLpiVMjfS488 TQVhsJbsIpEdJWs5C2Uw Nor6TWNzqUdiNQ4d xZHkJCsgPh7ifLgagWzm VR8bIGYryzpiv341KwSm b1faSZVliHGyTYyyKUM0 H09lu1X7NWBrVJEl JXV7vEP6nD2idBkkczbu bGVmdDsgdmVydGljYWwt ZRedH645EQWmvMdjJzOf tQa1C0HpZvd0ZZTp hKxzHO8bhKKoXJouNv0p xJrnzMpyVL4uAXMymhkv j324PhVzk1rvRMRipCRa DYrdWFG2Q99ci5K4 UGNjALXmIKX1yMB5iV9p bGlnbjogbGVmdDsgdmVy tIgiCKyfJElaZ521TLJc cDsnPlBhdGllbnQg ERpkDGh6P5BoSarwhMK+ MR60DANjRB65qQOxfUQu g7tcuBs4XdUwICRpUGP5 hFytJDkmw0JiCPOv O14lyLEtj8O3YETwiVva hIXoAcAnoSM1eR6fGYyf jahlj5ctdfibRkscv9wm oh77xO67J47yBEws ZHRoPSIzMCUiIHZhbGln sf4dtD2sRp1+PGNvbCB3 sEI4rW3kCWVtGgP2MNig G696JkOxgXKsOoae b9usp2rwkWd5CfM9MWIq phFicElqCJN7s7YpUd40 Z69cOFsjVVPfGEWoWWTn CASnjXbpil5iuE6z Ii8+JOBgwBW4oRA3zX8z MyWeThW5IJyoF908HwJq qYJvWhhuY13fO0KnzPS+ ZCBrYgn0EEVuhXck ZX2ilSWoVGxbYh8dNIT1 UtQwUdZyDGrnY3CbBQTr baqamwsrlXR2FIRhOTEz jT69Yr6lrXbiLCDb hVQHxM9nlelkt2nojeba HoLtYIXoLTu2ASn4MYTj lTkgSbFrAIM6PxC7VGN0 uCLjwG3zkFhlpoep zC0eT8YeFMPyeotsLr10 yM7mSaJsNhN9DRikXtc+ A1WREqtxIH1HS0rMMYtv SzwvdGQ+PHRkIHN0 vFfoFHldKUGcyV7gSACi N8k1CiDmIgT2LTskD4Zd YEFakgizCr84iD6xQcXu UyN1LAfdY3GznmH4 HQQphENjNSeaWCN1G90t c1U7PAKcXKNsUNS6eVL8 vB2reOdyasfroQFuzYhj dmVydGljYWwtYWxp N631DVXcxOqrTfYtHtV5 QqY6CxP0H3HjEfm6PLWa dQfiQF0ojFYsEJjwIe7x pIxjuWjoBR3eFFIy apsoGIZayL4jERQaiTIo dKuqHD2eRIRtaamwu521 HzTkIYU3TNRjwTFuJ2Dm jZ5hCmZdGZToHIJn H3GibVIgTZthV755OAzt WeT6DTSxhjUiV8SgELFe hYdxEfE5r2H0Zh64EYSN ZWFyczwvdGQ+PHRk AZP3vXkrUUpnLRCcaK5r HPNjE7k1SlIhWoE1EBvt W5CoRMMovhkzRb57aF5q AeJvTeZ5USsdT8Ef tcP0WPPenFQlJBljISS2 R11qf8K4RMDrZLLxCCG0 vQF4lS1rtFrsjhlbwBTa dDsgdmVydGljYWwt SIwfH542QGZejHirOc9A ROR3X2EtPlb7NHCxbDyv CP4hjABnKLhmMb2bvKzo sMptWN1bMQPueaxw ADNevB3hLRMeyNNsnNpx YQ5vXYDqwzmiv776EyFd IJZ4XTUccAPrE7QgnG2m DmZvLAThTHGcQ6Fd wKJxYApqJ829GEyxTnT9 SDXtyaNeH9PgUCRivFfk MaN5r0D3Mf2UQWcwoXV+ CN97wa25M4VbTvos Spu8MCYkASL8cYV2lA8t ETYdOXybg3X4zLJ5W8Sd hpCutb3wq9ylSAXeBJvs L93zzBEkg0A4LKIx hNC3WQSyeYgeWrWqvP24 Oyc+HKMahCouq0ObIoxq i5zmk7fnkDa6VeUkBUVd jeTcjWjiKJW3w4Da To43F85bSUfnURXvORWa IUTqDBNlpTrjde5zkQ8e Ii8+ITZfiGC7hYF5vY4u YhXjTpY4BEleY457 ZmHihXTtEgmkc4zhf2be yCl1IhFtJIZoxlKaeAzp BXB4t1BjEh50T4ZceRrd r2KcIah3iz11lPLv p4L5rCV3A9KsESRtrttd wQBdjBajJT1sAVTfmdol FGNhuI8xCAOrL4w3FyNp TjU8HMusF7TvorW3 FAChpTQcJMTzcNPLwI9d mlasc6tjphtnYuKaJBFz YIe7XFm7GNTkgQsuMdUt BQH9ZaI0BPQ4qPVt zW2ygHhdlsnwnX5lKwn+ WAc4b0jslOKcQL1nbGE2 RB74RG80tLWyt1U2cAZ0 D1JuBXHcqxewlcqg kTW6XTFbAJBgnE97Iu3l xOesQg9vPUStQPD2HZHd fLXkE1KenW3oFeIcACXj ZEDcE5VpaTHaGUyi B696JHdbCiH5HOLoqgYx W6HvFMPjlWwyKvF9q8K3 Xb4RKR86AY13BU92iPNa f2Q3qET8P9HdTUWj hlhlntfqyGI0WHFxMQAk eW54At1wuDhtJf1eGYCk DIB2ZVAniVEfC0BjjN6h McXgJTIqQTFyQ4To sZSpAHbfG532LTshNqR3 EDFbqjDpK5HkBBGnpYgk GbX6o9Q9Qr8TQr33MH86 XF00tEMwg2R2iNV6 Z7IzTPHgkcptyzpleVP9 TBDsMTTvaY12Yl0wpWaz Qu3uMBWrMAG8UMYidRQz H4ZkvB6nZkRgJEHm MPAtO8MtuKDiXEfpS472 IZmcCtX4NCUprzCcD6Hb EVKhfQxfCzM9z0D5Bv2L MHjljwq7H9WzJgwf dHI+UK82JBHsTI04xQQa qILgt7halRj2DlYbBHVz VND4aYkfGOytt0OpKXAf E11lmAYmh9E7NUSc bGx (more content not included)... [facility] Wound Care Noteon 11-25-2023 Wound Care Note [id number]# 1.00OTGTIFF [facility] Wound Care Noteon 11-18-2023 Wound Care Note [id number] #1.00OTGTIFF [facility] Coding Summaryon 11-13-2023 Coding Summary HTMLBase 64 JcuvhzuaIJk1kDb+PGhl YWQ+JI3MEZEcM88cpTQc sJ0bJ6ZVYYyRAagfEFVD WYsTTdOkkfEgGX9lfUEo ZXJu IC8+BL7hHIGlLdwhtFIb t0H9wOB2X16tir4gDSjq lEI9BFIxZxPasgwxd1sr xRf6DGvmBaulAwDq NZWglY77XAR9pB88Bf11 rOKpcQWsb4votBc2SqFz KYXuGBH7uXqrXJfly5Ti FVWfS84mfMIxg4J8 IGNvbGxhcHNlOyBlbXB0 aT0eXIosxnaao7eswapj Sxr3ls78kZQin3M3wHQ8 C7HdpkD5IEHytALb HtlvqQUSfE4dxynhl4by kftmOtXwGDLyIXp0AHt5 PAJfsZwiBzXiIE36WGO3 CCNcdjDlL2XyDYGa lOajPyG9x0J3Fj8VO1MR TlfrG8XAZVPZDNlvwHC+ VD72hj58R0AzKnwdAov5 SWKfRRG7wYC5rR6d WLRrYTzus3M5jMM8T6Ad vlDjqh9jq4ioRQLgPGwq T67gpODwt1L7HLMooUV7 GRCokXsuIsYfgJ00 Oyc+ALWrnGmge9MfFcgo e6cjp3gyyJx5UnrfLFJy hiSpcQczSYW2q1PkTs8d AXOfuZJ1tOX8bH3y ZhXmHzO0XKdxS963EoUe gUQlIhdmL98eU4SreEX+ SOUfUzj6YNRziJjfNQ7r J9CrYDByxeelyRPy tOctKP4cVYVcjaptYHJw uB8dNELeG2j2VsOiKeT1 YNddW3MyUUYrmcfgDw98 sL8iEzDwBgC5NWmz X1WbpxL5PYCupTLlLCct BDD1B70pk3W4FORwYISm GCR7dMT6iU6woYmzfaso bGVmdDsgdmVydGlj VJjeZVqwP494IZJdrFch PkNvZGluZyBEYXRlOiAg MDcvMTAvMjAyNDwvdGQ+ BRYjBBC3gDjbUHLf kSQdDLchXy4jcXkfhOsb IU6vUJVdmfpqUBNfvT3l XAKpjWHpfTidAW2dVLLr pocld330PuSrLNH9 BHZalUMvY1NixO0bBjJv SKLgJHBeT8DbvMOxCTvr A375LOivOuW9BOXuynZp R6TqMWEepPexRdQ9 u0F1By8Ou9CovkgyR2Ne lRFsWoBxLjilUAo7K5Ny PjwvdHI+RB36SQLpYC18 IPv3HZT4tYbqZCpw NNMoH8JbtN3pBlNwSPOe ZGRkOyc+PHRhYmxlIHdp ZHRoPScxMDAlJyBzdHls KN8wBa8pAXAhMMXu gKtcoCDmTvYun4uzOEXh DVvvBP1olWrgR5HdiWB1 OLNdk6b7Pu81D38dF7Ne dXA+YXDvhFW3kJD6 cR8eGfXsEdV4MHazS725 RxFtsRDkBodpp4ley3rx eIc8RxR9EHDegcSmrSnl JKH8i4JpMo50H72j IHdpZHRoPSIxNSUiIHZh zHwuij4aaD8gPd1+PGNv jJZ4hFU7mZ1rRlQdRkK8 VGzpK626NqRcgLSo Zhswg6jtx8agdXx9IoPy UBPibwSwrWkcSMN6t3Ab Rh16D4JezHtbx9RfLhf3 mi33iETcs1I2fNK7 N1DhODAniyonuQNdjQir XE0yVNNxufhuRZPrrX8e JNYkX4b8FuBfKqJ9PAmd P1EnsoA8ANQrrPVz OQQegLSFkC6qpaerx7yg gcvfJnQiCQXqQFr3OEg5 SXCdvBxtFqCfJRM3XjI1 NKS0nQThcH8xkSpy jjltmG1xAyi+DUC3gCKl xUZGQD6cXgolhBD+PHRk ZOX8hSaeNGceYAPvpG3h RPIxO9t7AfHyHiW5 SUsvL5NjrlV8IRNbjSNr TRMjdNVQrS4xvzadi4is gmifLbKiDRDtMEb5XMh7 LWFsaWduOiBsZWZ0 DoS0SNY8qRMvzW4ykMpj tfwmaJ6pWuv+QmlydGgg SKK9RJt4I2JiEzf5OLXc pVtkIA2ixCQsDMsq Is5fvGcoyPemJY4cTDJs jwfyu195XcNhw5lmHACl cESiYDsoQQS3N85gc3S6 WBSdWNReQSP9aUE3 lW8opFjkkecstJEolCfq doHghKrpXBmiHKgjF819 BTKztKfnUoPdPFj6C0Sr Mtg0UUGzaFynFS5p bZCoQCmuBt4mxSjevFir YP8yICSqibajs974JiZz h7wgSEGfsZInVKmfVKK7 O05bg1Y4NSBkUREk RPB6zFD1yD1gxXdxijmj bGVmdDsgdmVydGljYWwt KLyzG797EMLcbUmrGkVa tYj1S6PjEna5UQVl yDeySV2vgBAoSIimFu5a wFmjxHddFV4rNMRydmzz q175UfXkl1xfOQZhlJQr LQleGVJ7O90jc1L4 UMRaEHRaBTQ0bUC7qG4z bGlnbjogbGVmdDsgdmVy vVhdYAvzQLnlP296HJOm cDsnPlBhdGllbnQg RVeyRMu7I9BrHkxxnNT+ PO28USWoBF40aDBhsVBb y5rpeDg2ChGeYISlUTV8 wMsdKBiua7RdGTDc Y63wmZWas0H5IDDrbVtm oBYoSuPdoJO7dZ5gFZsi evrgt6emkbhbFwcth8al uk98bI48Y94qYObi ZHRoPSIzMCUiIHZhbGln al0ceV1vNv3+PGNvbCB3 zEM1bS5mPEMuQdJ3OJhn Q285UkLomJHrVjec m4kwu2vdbJa7UtG1FFEq vuBnyUljKMM1b9NwJt58 B64bDQsdGGWuMPSvTZCe MTYmqYqrfe8ivP4p Ii8+SRYfiLR7mZW7gS0q EsWzAaQ3FZhkT646XkFv sYCyCwwoW75tC7NomPD+ RZKiOqh7ZPFcmEdt FQ3opAKjYLlwFp4zBCN6 HbHlTcIhUVcpP7LnOOXy ldlfgtgelOP6QHCsYSEe yQ53Qs8kaQdeKRYr nBLOwQ7kuibue1rurckr CtWhQUEkKBj0PBq5ROJw gKegRuZrSGC6MrQ3LOM5 lIQklA1wfHjlhfzd dT0rX3TwFPYcwpaaIe32 cK8bBeSbVeA1QWdvWtd+ Q0XUQgkmLV1VI0zNODgm SzwvdGQ+PHRkIHN0 iDalYNqqXDGerR6cLYJz X0g3WeMnNfL5VBidW9Tp BFNoviktMr99mC9wBtKv QyA2YLedV8TcufY2 DICbuLFrWXmqQHJ7A13o h1G6KLYeRNZdZNB8qLH2 qK3pfTfnhgyseMRhwHvv dmVydGljYWwtYWxp F588HNPjpTycIjSrAcG8 QuW3RaS9B3YuDtx8TWJw jDeoZM6xaZMrMXjhMx2g tLswtBfzKR3gVDJw ooacVJCpdN5nMLIaqUBo iKmzNI0uIYVffvmmr810 WtQmHGT7ZBNifKXuG2Ou wJ1hIxXfEKKbZIFe B4UmfZKxYLnbX208AOdh FzS5MXBmdmQiH5OvPZXx hCijLzZ1y6V6Sd97PXMJ ZWFyczwvdGQ+PHRk NRS0sGsjAAgfEKQwbG3l KGRpW3v1EnFfGfO4NNvg B1GgNVDjayjxAi57lY0t MwGeQyL3SIqmV3Nv neG0CMUzaGJxEMthRUN3 W81tr4H0FNMjIKNjSFK0 aDA2hL8gnVmkvwvizJAw dDsgdmVydGljYWwt WAtpK396IQDzbNmoGf8R DIZ3V4EmJmc9UFBpnSpq ZJ8tvCKePFnoRr9rsFbr aAdnWW9fVGCgykwa XRAysS4uIRDfcNXbqGhx UB4oZDBofvvsb360UwRt OZC5TEXyxCUaH1WmbR7a XxVlLMItEPViO9Ui lQTqXVavM192WAarEcB1 YVUhplVdB7LzTRLdiAot BvO5v9I3Uo6MYIulwXS+ AG64lu70M7ScZmrh Sls8VSNrOEF7bER7yE3d PNKsMQjyo8J2sBG4T3Dg lxEfsh4zo8pbYKNtGUtf V92viGTmr0Y2BFTn nSS2HHQwjPmtGpRnfN69 Oyc+GWFduQudj3ScJfoe b5xaj3oxsZz4BxYuXOCk ehAarEltBGJ0k7Xr Xk47L73tSHlmENFdQJLn QGFkVBEoePabmn0xkQ0q Ii8+YWIhtMT0lET2pV1z IuGiWjL6WSmwO733 RkDhkIImYvxtb4erf4ct xSl7DtDzPMRhixJzzXms FOM2o9ChBz76G5ZcaEhz e1NuKej2lv09bUJo c4T2qCW2K9NhWXZdselg aTEmpSlfLC3nKPMyjgmm FYWwsP9bTWZoA9v0IjLt CxF7JAplB7EezfU8 PGIfdLGmGSSbgKPIeA0w iqyef4mdrfkeWfNbQWEl KKz6CIe3BRUptQpfAlOr HCL9WcZ7UOS6sDHs hP6ywImducsawY8jWio+ RAy1j7evqSAqBZ8ylWY6 IG97FN90dCDud0H3sBJ1 F4IgROHhfxqsbept jFI5MUKvMBCgtZ43Ec0c zPmqGv1wKPKfUUK3WMLg oSLbR8IbsX6bWaRqIAMw DSZhN5YncZOzXWrf Y167ACgfViI3GONcwbKg Q1DvHICpfCbwYoP2j9V8 Ic2WMP65QA87OM34hUSr n7J1gUR0P8HrCSPv nlxxyjjrbFN3XJLrYCFd fB15Mc0mgHqjLm7oWUSk NMB7BKMoxKWvT9SooZ2s JpOnNBZfGLIqN7Tr lJMhJXdsB795UYvoThF7 ILYnocTqG4DiMKTvgPqd XcJ6a0B8Ew6MJq54YE91 WA81yYGhv7A2uMD7 B9UqSQLlxiizzyhltJY3 SOSyXJOidK72Hu1epZdu Fb8nUZNfYPA5XUAtqKFg Y7MerV8sLwDhRZZz HSTmF7WwkQKdALwsL072 ZLtqVtU9IJPxlnSmP2Af WESfwJbaTaM9n6B3Mm7H DNhdxnw4N1PvUxtn dHI+QO30WENmET14bCWq fQFfa7dvrUj7NmPyMZTk GYD9kEplOFlbu3OxZIYj Q39hiTJey3H4HXGt bGx (more content not included)... [facility] Coding Summaryon 10-30-2023 Coding Summary HTMLBase 64 IfxseezvPXo5yCz+PGhl YWQ+GL0IRCBoS86vlYQr sL9dE7PRBEyUNqeaMURL TToXJfLabmMaHM9hhBHf ZXJu IC8+PJ1jYTNfAxvkzLPw e4R9kIP6N93xuw9mSUeu tLF1UNOyPwRgnlkzk4ww tAx3YUcqIvjoDjIm OXFzwL31PSJ7tZ90Vt26 hKZhsLMyk6vgqCe8EbVm MGOrDKC9yDrtHPuyq8Aa PVRxT06obGFnw7U9 IGNvbGxhcHNlOyBlbXB0 aA7vZQtyjsxfs6airefm Vwc8vo22xJYod9F8gNO3 O9UrdhP7JWZdtJId VjtfnXADsA2mutyvo4fe nlhwLxLfZUUhAGj3KAz7 RAJioHfxVkUvYB84JIO4 ZOHtgvNdV1CuGKBv cUpkByO9t9Q6Ct0DL5FI BbaqK9GNAHVKFIrpmXQ+ RJ79ez74H9JlHjsqVim3 XYQiCPM2nMC3zB1u YMFhLImdm4V9iGJ1D7Ka hiMrlt3fz4ttYAQhPUpx S64gyMQjh3H6GIJpzWM9 GUCttCwkWpDhlE70 Oyc+GFPtePpyq2SlIxjk p6kpe7hkmKp0VfkaDDCk aaMmyLnpQJN4w1SbRl4r JAIrjER5uII4rL1t VtJyWdB3FXaoT161MoHu jDBkNozsK47cK0VhiMA+ ZXVfUoj6SXRifTgmTQ1g D4YsKTIuhbtxjJXw wLjsNX5gFWHgunuyIMMx qD1wCUWvA7a3SqHaGsO5 BXusW4FoXRPqtamzKr12 cO2xTwOhOjI8AOyl B6VxhoQ1KKKnlVQlOAtk LQG1M09kp5X7GRJcENFq AED5bHX9aB1enJaukxqh bGVmdDsgdmVydGlj EPbjXPtlX963PDVnoOzb PkNvZGluZyBEYXRlOiAg MDYvMjYvMjAyNDwvdGQ+ ITMjGIW1vAplQEEv rRWmJPgkIu7iyRyktVlf MJ4eNQHudnmlZSYndH5y RUCklXGtqKugZF4eIFUw eprwt288OaFiUXQ3 VNElkMIjU6OluP7xHhRp CXXtHFQgM5UjdAJcNMiy T512PLxmEcK7KVYwtsCw M6FsNTEgtJloUgB7 l9P1Hu4Nd3IfisrkE7Qd pSCuRhKpIrjdCAk0E1Gh PjwvdHI+HP78KVYxWI70 ROd8RTN3lRowOBox RXCfO6VdcS3oYgJhJJPm ZGRkOyc+PHRhYmxlIHdp ZHRoPScxMDAlJyBzdHls RI3bGj7fQFIyCXGx fWlyoVOyIcJtb9lcEMPq LUmjRX1oeLgtX1GblEO5 NXEdc9y5Hr82A23eP0Qg dXA+HKLxjEV3nVK1 cH9qYrVmEsR5DWwtH630 MzJtfZGmUdncx4jod0ps eBj8TcH9BNMikkMazNas SYO8y3YcHn04L68q IHdpZHRoPSIxNSUiIHZh oYdrlu1vfY1jEg9+PGNv jOT0qYO9jW2lYbAdGcT8 SBjkA585QpDsgSBv Czyxl0euc9gtxJb7OkMk UURhtsUthBupJQL5g8Me Ji78O0DssPror6AzTlp5 in39yTPdm3H9cKG0 C3BrJSVpyotarPNypWqm HW8bWQTyempnIONhlM0q APDwF7l0VgNsLpS9EZgq K0KuxyB5VTPdvAAx KLUzkONWdG5yngrxj1jd vvklVhUsFUBvHBf7NZy1 NNJomAwnPuRfOHW4RcC0 CYQ4nSOtkM0uxJln kaycdD4zBgp+EMS0lQFj lJOMSA0aFferzZO+PHRk CYF8hRpaHLaoCDQgtC6j LIGdK8u6YrAlUwT1 XIlpP3JgcwN9LJLcyQEg UHCuwTCMeP6pkojrl7mt wupkNbWcBAKiSNa7SIj2 LWFsaWduOiBsZWZ0 KvC2YMF4wPPrdW3ecImr qyjnrV3fQrt+QmlydGgg BWP0VFa1T0DfTyc9ABRf oLmiBJ2usEXzANca Nu9xtKoviYcwMA9lJURh njlnn883KgTps6uqJYIn rXAlXMdmASR6T61sl5L7 SQFnDPJdGAH3pGK5 tV4oaSwtynuzkWUzwPac xeMhfZplSLqtNPfuK095 AJKcpUjoJnLdRQz0C5Cm Nbx2BYKalCniUZ1k gJRfQQxjBp3dwCiftEnn CH8fGUJoaehiu674HyLm o8qoWGXkfREmHHgaSPL4 J00yt2K9TMCuERJn KEK4aLY2aZ7nvKtkofyz bGVmdDsgdmVydGljYWwt EQlcN456PQQpfYhrDlVj wIp4U8FbJky7EJEw dLqaXH8hjADpRYpgUo3w kQjqgQtpNA1wDMWuycux r669XoOnr4ycAMNlaXVk LBuoFFA5H54oh7G3 VNRqKXCnYDN7zBG0iE0s bGlnbjogbGVmdDsgdmVy mYuoPNjpTVrlK122AJIn cDsnPlBhdGllbnQg OBepZAh6Q3LfBfpghJU+ WX99HLAvQN02eTKzhGGs e1ogiZx1UnMvYLKxYCP1 jEtxNThiy7IcPNQd O31jfTGmv4P5MQIpiAuf hFLeOnNxhZI8dX0zUPen soblj1dshrmlQvtuy2mr xz40wW83U31cPFwz ZHRoPSIzMCUiIHZhbGln hq7fiM5pLo9+PGNvbCB3 nMY0nW1xYKDcIhR7GPla R034VfIloRPyHaic c2wxx5yajHk7WgM4ZPAy rjIhcQpkJXM7h9TgXy40 W29qSMjxJWSdIWCjSQHn VTQviHsgem6tnA6c Ii8+KQTfpEZ7hMA6xP8m VkRbNgD7NQuwL251QxOb zSXmAbuaP57sW5OrbZX+ XXJtZsm8SUDfdAdv FK6ipHUeNSlbJl3qMOR8 GrJeOsQrIOhnI6BvIFMv clubhvimaCO9QMXzTPBz lR66Zp2apDffCPZg cWRBpU0fqoaqr4szxcif AsJdNWSbRSu9RSy2IVTt sZmiLrVxHBI3ZaU5KXY5 bFQmlH3sdHkghnxv xS5xL4WeLFBrotbpPr77 sF8tGvIeBbJ1QYfvVdd+ K8PHXdaxXS6KU9xFRUlr SzwvdGQ+PHRkIHN0 jVrbRDjmFEGoiT9nIJAv R3d9HaDrQjR8PBuxC6Hy OPWlkijeXp65qT5sHkZk KwS3QGgaT9GzhyR6 KPPzrTJzWPluEUA4B64t u1R0QVMnVYKbCMZ7mHP6 cJ2fhOaithamuSIumUqu dmVydGljYWwtYWxp Y224NQCsqWanReYjEpT9 FrI5NkM6A1HbBst3TDDc eVbyTV7zuHFaBHssGx8k nPifsTihOR5jEVVr bzovDYNjjQ1xFIRsqQYg xFxhBH1kMNWcwxhbp658 VhWwQBI0LGSlnLRwV0Ha sG7wBxEeJPFoSMDg S3TfeDOjOVaiF097BLpo ZzQ5OIIkdyZtJ9GpZYUm gYlwBwG0t6G0Cf43FCIT ZWFyczwvdGQ+PHRk SAI5zHmaQRftLWJxqB2m MMSpU6o8ViTnVdS2DMsc X2ZxLSRzlqoyPp62iN5h FdUzNnZ9ALmhO0Ih icB3CGEmmMSsXGslWNN2 O16hd5V8EBDtMMJaDAR7 qOD4oT8rjUkolnfxuFLn dDsgdmVydGljYWwt UPudX436NFHnuOntYa6Q COM7V4MpCfr5HCNrtLxr ST8dkPJdELymPo6uvLoy sRzoEA4qAVZjrhqs ERWptC0rLPEwkQOsdPwy VV4fIUJktjoyc141YoTo XYY4AQYnsHFhK7NyaW1o PaFxJPCfIKLsI9Hl zNHxWPosU910MGkfAcH0 DALjfgEvD3VoHIPjzOzz OwP9y4M3Ky4NWBrkuUJ+ SU06vq45B3UmBuzi Ccn6IGSwYIU8wER5gU5s JNEzMHrxf9Z3mLN1U4Vm okJdtw3gp9dsDLVaTAln I05xuMXqi3F7NCZu nCE4SYUgiIsvCdJvgH32 Oyc+HBCxuBvrb5DhXmaz o1jpd0lylBe2SdCwUXKp vqIazCwfAWG1p2Xh Tp95C07dQDudZWDsTCWn ETXtJFXmaMgllh5coY8h Ii8+BVHccEI2pEW7fX5j EpIyMsP5GBnfX441 IeUlbZHjHgyjp0wre5ku tEy2PfLgLWSripAttEcx CRG5o9GcSd06H0JbiLvi a2MmSsu9gc07wAXl n1I0cRR9J1PzPBAnwjwr dYNnlZbaOH6nGNBjmzmn HHBovR9rSFMfI3r5YyEy TpB0TXnlH4QpyiJ9 SBCivBHaBGYayQLZfU3e zegir5nlocjpMkCtTLEk CAc1VPo6IZTskExqLaRd WYF6OrX9CHT9rGYx nK8bpOspkqibhJ1eFvc+ GVs1n6ornYZwDQ3wsGG8 BX41BI85iAWwa9I7jXA2 P4QiPEIjcumexsct vNS9AGHpQWKwlI91Sf7u gWiyDl1vBVTkJIN9PREd gZWrR9ZnzM6mPlHfNXHm IDSfD2YupVDtJJxe E676FRxaRyD8KYBpifCc Q9WhNFVnfGweAlW1a3E6 Fw2BCL05PC30TJ44lUUb l8W4mLM6N1AiIQQx pmpxwozsdLX4JWVnSVQn zM10Et9abAolRb8bSUJi MMV2CDHtjDKkJ9LjcG4s TgCrKAYdEXBmJ8Kf pKRwFMcvR677RPkpHjR2 FBQzkyGpM9LxNGDmlImz WcP9h6S1Ug7AXz00KQ51 TL33pILdn9J4rWI7 D1BxRPLicdjqjorbjLP7 RSJpORGndV36Ev6poGwe Ty4qRYCxHDF2SVJkvRZa F0UidM0vKyGdEJYv SPXmZ4VgmUPmDXhiT255 XQrxJhG5FEBaoeCsM3Ak KCLhqVrrZnH1x2N8Hp9Y DEqwemy9S2ThQmkx dHI+LL72ZPJbNM22vVKu wNYqr5nybTp5NlTjCEGi JXP9nFlsBFzhv9HmRAYq B04vyVCdo2C9UIVg bGx (more content not included)... [facility] Coding Summary HTMLBase 64 VobaomzrQSh9aYl+PGhl YWQ+UA1TTJYwW45hvKJj cY6xQ4DRVRzNCyrjFMST HVfCZxZpwqRqGB3lcDHd ZXJu IC8+HP9hCRHhQczedIHp y7O9gTP7M81uol1oEKky wRW5HFUxLwRxmcikf8so xDp7XTvnVphnGeGo LISkpH28SPC2mB36Lg31 yNJyzVVfg4huqLd3VwZu RVKxLAG9kGmxSIszx4Kc ZLMdG30okXPea4K7 IGNvbGxhcHNlOyBlbXB0 lV7bOFmzeklaw2gqtuir Hip3qm83cKEfk3W5wTG2 P4NrhoQ3GMTtxHPm XursiWPClB7bvreko1as ajcdEkGcSQOcBYk3XKu3 DUZbmOptSnSqNR96PCD3 FUDijrIaM1NcJHYt uCezAfM3t9V7Nj4LC4LC EbaaS0RYTQSJCXqvnZK+ TF72hk35R8VpYfmaZks6 XUXeJCK6kKA6oP3j ZKHoKDoaf3D1qRQ8B4Xv otYkqd4ns8fwNMCoUWkd Y21liBLpt7K8BEZxzTF5 PENttZmvOqDdrP53 Oyc+BSNjjWwak5IoEoar j6yyw9robDf9OarzKQMh mnElfJmtJSX5i1QoNg8d KEXwrPZ8cLV2sX2t YfQkCxF4SBpvC759YaOk dLQbUjzfE44sU1EamCC+ IHIxGuf7FPLutNzzFT4l K1EuWKPkbofetCGk vLuoSD7dKNAxxiyxMFTg rW9wGEZkA6f0LaPtRxT5 AZapC1WcUXZkgocwDj52 xF3pKvWpPuN3FPes Y6SkowP2JRAyxUXrWFqb QLT4X30oi5L4MCGoKKYx FLM6lWN7nK2snYvlroqt bGVmdDsgdmVydGlj GCoqXNchI751BWOykBsb PkNvZGluZyBEYXRlOiAg MDYvMjYvMjAyNDwvdGQ+ HHZbYTS3qAxkWKZw lWVfEQbbBp6elRqxhWrp BP5hYLHaavweHZDvsX9c XSRtwHLccVgnDR4vHTTh ennzb650VmZeQVX7 OGBwbFAvP9KokR7eSwUv ENGqRIHsC2OdzGUwCEsy G731RBpqFlG6SSKzbsFh Z5LlXJMubFizRyW6 v3Q8Jq9Ip1XitzuzP6Wi jXXcAfBbVjcdPSp1G2Du PjwvdHI+SF50ONLpHD80 GGj2MAG2yAsuJQey WLFmP0NnxI1mJxIfXGSn ZGRkOyc+PHRhYmxlIHdp ZHRoPScxMDAlJyBzdHls UD0jPb0jJTHxHIQn zOuizMDxTeHof4jeURQd IYkmHQ8vcBamK0LtsOR6 NCMta7b4Ld98J65jZ8Qp dXA+YYQwsGN3rPS0 eT5iRxHdNrT0XPboM798 WkAdmGRmJmbmf8iwr1nm iSu5YsF0EVGekuVzoEqv SAV6k4ZkYo02V03m IHdpZHRoPSIxNSUiIHZh iZrili5djU7uKn9+PGNv xJJ0iBE6nY6sUaZwYsE8 EXdkI953NuIfuAVv Pugjz4jni8blkOx9TfMl RMZtbiZfeUdrMQI0y0Zy Vq09G8OxfAnir3WtOpv0 hp51rQYvm5H7qTC7 G0NtTFXiigrszCSzrVqs UA4gCLUotyizNQSgwP5b EEPaD6m5FoCaCxM9RUcm X4IccmZ1YPBxwQTg WVQiuCNEsI8fuljjp2lu krfkNhDuQCUwSSw5QRf4 ZLEofTgsCdGyYBV5RdL1 ETX3gXMpiO9vqRul mamahH7fJsv+GOG8fZEa uERGNT5nMplarOZ+PHRk INQ9wTrfNPbeXIKipV2g CKVnB8e0RsPpNzT7 DZqyZ6EnwsR0IHVchOTp DOBslGJVgD4mrdfpl1uf dusqJxCsHNOqNTj9FGc4 LWFsaWduOiBsZWZ0 GcZ4IVK5sZXujP8rvQyl udvcnB8sEdp+QmlydGgg YRJ8LEd5X7ViQxc7MASt eKfwJC8vtKSuTMtf Hs2roQiziJpcPN2lJKGc pzthz456QzXgn3znWTFl hZFwMMxrVBD9P09az8Z8 TBMpXOXkYEJ8dRV1 pB7ujHyzxokyxCYwmXoh ulYfgEmzMUpxMDivX854 RDEevYgnWjYsMHb7D1Zo Wiw6INDrtEtpFE7f vYPxEDfuMc1rkTegeAyf PB4jVZKuiaplj046YoAw l1waCEDapQPbNIgzDMF1 B83yk0P3PXUhXZNk GUR8pNP1iS2lyHjzhmyp bGVmdDsgdmVydGljYWwt VAwzG847EIUjnSanQoEg sUt9H3TjGpb1LOJu nKzaOA9cuUIvFGiiXh5s dUnalStrAJ4jGJAkludl x988IpWnt3thCEGrxOGi RTncJON8N38ag1C3 WZInDKJuFFK8sKN0lD7k bGlnbjogbGVmdDsgdmVy gKqtIDliLKzsN794SKSj cDsnPlBhdGllbnQg LZjtYHr5U0OvKzwuqKY+ XR80GNJgWN08lZCzzYOw t8stjEt2AxJjYRFmQXQ4 wBbeNQlxl6BcVGIt V48voROas5T0FHIpnMvm aIWgOpZsiON6xK4qAYqd ofrsy7gihdqmBfkww0oo os47dG55R19yCPau ZHRoPSIzMCUiIHZhbGln iw9upE5gIr7+PGNvbCB3 rVA6kQ1wYHNkCjW5NHso Y052HuGhpFVgRlau a3lll3cncWj1GtY2UNQf xcPknNqwDWV8z4XcTg23 Z51qTKwwNDLrZUZyZWLr BOTqnEhebb7fyV4k Ii8+IYAeyCT8pIF7xJ4c UkMuBpD8BLtaY927XkZj aFJzZsthW40rK6MwvDL+ FVEtMgv3IBWvmUup QV0edOErNOrnLp1wVMO1 PgBmQbFuUPqaN3ZyLFTx nvwtuirlqZU8RNDbIRVe lN95Dn4taMhfYSBj iXHBqG7fmnawb1kqqcla QrBeYQQxNWd2IZp8ZCAt uMaoNnIvPHR9NyW0RCW9 lVCkeQ3yjUeaauia rK1nZ3CuULIhmjatHa25 iJ6jQmHdYsP5XRsgAew+ O1DMZnsfRX3EN4iHWCfv SzwvdGQ+PHRkIHN0 zMvoAHldRRDpbG0qSUCf R1h4DtCqIqC3YAdhL0Vf BTQivpnnYg64dT0sHgPd UuA2RBcgQ9AyolP7 KGZikEDkHLjhKWN8Z50h h7Y8UBDjLTCfQPI7xFO8 jT7enSczfteebLYksMkf dmVydGljYWwtYWxp J172QBWuhNzvXuLgDdS7 GgG8SzE1C8HoMdc1XKYy mWsaKW1ivETfWPcoDp9x zAwkzZhnGN2oMKEu bmzjEJFjlY7nQTMsiKPl iMtkNU4iGTTydfqea256 HeKbUJR0MWIzzHDgJ7By uO2vRzXlGWIbVCUu U1XjfNYgPTzbC854ZJwy RwA0KBVsumVqZ3LxIEWz hVvwDwO3a0Q4Fi21YZSX ZWFyczwvdGQ+PHRk GJR7sBkfNPkzCCGfiR5k YJFlY7j4CfHzVeM2VPcd B7AjXWIvkpbnAc83lS4m LyQlEcR0KYcvK6Ao zbK2FPSiaSArZEcaAZD8 F46th4R9KKDrNBEwVVO3 oFB7oK5wbPorcaxzyEWc dDsgdmVydGljYWwt ETwsQ375ZJIhxUitKs2F SYX2H0UjOtf0OQNonBfr WJ6doOUsOGbsYi6yrCsl qGbaVX8pLIUigqwk WNMybN3eWNSbfUZwcAzj IW4eSIPrgebzb111VkKv YTS8UKPylNUcK7ZocA7x TrRaXZVuWWBtK7Dw mAEdMDddJ710ESjoNqV8 VARkihWpR4ErMUNaqAkx YfW0m0B9Mm0YJJfbqTR+ NK75nu65F5ZcIfxx Lxw5JKWnJNB7pFS9qP5k UKDfMKuui1W3mPJ9S5Ue paUmcr5mh6eyEJApLSne Q27wbYYtn7T9PGVb xDQ8GNZxlYudFsDhkP33 Oyc+ZVWvtBgby9IyNzri d9qbg7vguAh5XvWpDBMr qeHatUkfTLM0n0Ec Op67R31nVKqjEACkVVVg ZBZdXGTebDeurn4dsG4z Ii8+XQOzpPO7cIW2pE1u BlGwYlQ2VNhmP172 TqStvEIfKegxp6xfx8eq lQp9WvXnCWAetxPewLmx SEO6b1FfGq46E5DsjNhl m3EtIfv4df07iFSd q6F2pVG5C8OrXWOqzpdn aUUkaMhtGX1dGZYcnowl LAJyhT7qBXDbM5e5AzHr LcO8WYtuY3OczbI0 XGOotGXhQPChwQYShU3l orezo2jsffhgUcXvRLXr MIl7UZb2JUAbzMjeTmHk STE9CaN8SXC6gAJf pX8vsZmgoijsvG3hNzs+ TZt9a9rovTJkYJ5yaJB0 UZ65RT80rODhj0P9qUU1 L1FgBSMarmucbjbe kDA8XRCvMFFnoW68Mj4s yGqgVj8rTMGgDGI5EYHh mGJxA1FnqV6lSlMeMIXg OKMlW2ObmHJnKYis V204EJreEnV8QXAaccGw E7EeJXXjuLtkMgS4l6W9 Ej5GWM14GT57YX51vUCt y5U9kSI9W1UfDIHu ujxriqygbEP7PTZpOWPo wG25Wy5kpAdtPm5vXZLd JRD2RYOtiDLxF6BriC7k UfBjFWVtGSTnI3Vv tSQdLPwsE790OJknEoA9 AGNkggTgP9VhSETjtAte VrI2u5T0Zi2HFp31WQ67 IR58yIPwc1H0dPN0 G7NrCCYpcqbpdssdnYT8 CLTgWYIadD82Vo2ksRjn Nx9rFGGuLNK6KBDotEEh N2PsvC4vXoKzVPAj FTXvE6UmkHDeSIxlR680 AXlyGiX1HQUagkOfA2Rm FIZmnCayXwX1q9U7Ji5E IBtgdea1G9MfAqeg dHI+HL68WPZkRL03zLGq bIEyv9qavAx7JqNgPMJs YRW4tMafRIqgr3IbLQSn F45huMYmx5Q7FIOf bGx (more content not included)... [facility] Wound Care Noteon 10-28-2023 Wound Care Note [id number] [facility] [id number] [facility]-16-2023 Coding Summary HTMLBase 64 NjwodadxVFh1uTd+PGhl YWQ+RF1HSLPgA68nmLDt cS0kC9MRSXfNXcysBWDX YIaMCaYnzxUfQK2gfGQt ZXJu IC8+HP5aPGOeItrvdRFc w3A5vMW4I09sox8nLSnx mUD3UETnMeFoigoqp2wp rRg0GMxeIykbIvCg CFTmlV69TJE4kA15Kq06 jAGzwZCrh1qxnNx0ArOn YNWhHTA9jQmzOKmkz0Fm JRSgA38caFUrs5C1 IGNvbGxhcHNlOyBlbXB0 gN2uEPeoztvgi5nkckmz Wxo8wo74cEMep2U0fIQ4 Y9TslpG0VJQytRRh UrmapTDYgV4aixnst5ci ojrmIhBuOCGnWIs8BXb7 GCZtsUacEnDnLF62UYX0 HGBnbhJpK2MsQQVh tYqzSmW9q6G7Iz6GZ1LE DuvmP3KPFDTEMKvrxPN+ VB22oo61O9GnShqmSop8 QYPuJQJ5vZI4hG4r ULEpXKntl7Z5gCI1U7Xg azMpyp1ct8mfNVOiKRor C57udPGsu7S0NINjfNP3 HIGqiLgxAkBzyO60 Oyc+DKXbeUuuu7ZlBisq t4gqb6uhcXv7TgsbUNHn wsIpeBvgWJI3i9DrUb8l HVCnvZP1wAL7xD2y MrNtIsE2QOnwJ351CjXx kHImMrrhB89qP9RdlOF+ RJCaOpo6DBYnyMorKC3h I2AhQLMaomnpaUJl gHqhST1lHCSobnbgFAGa nZ8iVQScF2h2TtMmJyU9 QLihK1MyGLLafljuZb34 qT1kWlKtVwG8RJpp E6NmroT0IVXkkUPuWWnj SNF4J03lx4M9KPUaDQFh YKQ3qLY7mY3psYxbahcd bGVmdDsgdmVydGlj ALzrFTlqY081HKDfzIrl PkNvZGluZyBEYXRlOiAg MDYvMTIvMjAyNDwvdGQ+ PFUnQQS1hVtnTIIa pFDdRSoyHd3fpIhhkKdm IQ4nITXypaqpNTIhfC3f GAXvdRWabRtlWU3cHUUn jlnuu599KaAdUVY2 QAEnaTJaA9KlcB8eQxPn ZQFjVQLyL4MryWVqGVmv J274QBnhWgW6UNRlvkGh N7PqQTSoaWymNbH0 v9J4Si6Rw8YngzpnV2Ku gMNxIpIqIemnNNe6V3Qx PjwvdHI+RE50RSErVI12 DTv9VEP7oXctOSkt NLCqM9BcfA6tDlJlAIHd ZGRkOyc+PHRhYmxlIHdp ZHRoPScxMDAlJyBzdHls QV3kTv1lLZXwWQNb lGhshBNjOhHck8pjRMVg JNakFO1puDulN1OixJG5 YTWyi3n9Hl38S41iL0Lt dXA+LEKryPP6oQU8 iI0uAwWxRsF5GCduI235 UhGizSBrFenuf0fks3iw qLt3HjY3OSVtxtQoqSwt MQQ2t9ExXw64T48i IHdpZHRoPSIxNSUiIHZh aQearo2ggM5sXs0+PGNv nGO4tOC8jL5cMpZsHlV8 ZIqlJ433CvBszAZn Qqjdm0ira3kayMn1WyOg YDYxnxVfmTxgAVR7x2Rr Wc43F4QtrKhca1IeUic7 df09tQWyd8G7dKF2 W1ZuVRWhhtmjfZVysTfc YI9kRWKzzjblDYMtnO1e KJEzD5n1SfOpFqC3SJub Q6ZygbL2YNOvzCSf ISPjuFFAaX7gfaspt2ua vwniVnKgMWWuIFq8JUk1 UEZqnSkfZsGpFAE3MgD7 GFA1gFTawJ6agYwq fvnqmN4tWwd+FWZ2uRYu yKIVJP4iGajxrDJ+PHRk LNC6kDmlYPbxCBLgoQ1o POYjQ0p3XuAhYmC7 WCsxN7CoazU2VNPygPGi DKZgrFBIfP4qhalqc2nc fnglWxUeJZMjKNt2HRd5 LWFsaWduOiBsZWZ0 EeC5OMN5nBNthG1brRmz qukzuW9pBsy+QmlydGgg TPI0VMh4U3DnXgj6TMXc mJwzKJ4bnMLrMUjn Qt7qxZuigAblZC0gIWLk hvxpr156RxZpi5htMKKo sVTlLKieJOR3E04oa1I0 ALVsYCNiASD0pOE4 lK3qeGlnjkyfyVBeqUyk ouEkaRxiFFscSZwiP510 FDCtcUtiXjTaKKf7S5Pr Ads9RWKqsWlwBV8x mRMhYFtrTw8yuUohiRim XY6rOSTlkurct794OpMe s8kfKXKyzXMmJFdrFDK1 Z78ai8G8UONfTJIp RGE0xOO2bN9eePqfgact bGVmdDsgdmVydGljYWwt SJqyH403CXFnhWqfJxHm eWn6Q2YiGdf0IECm zUawGX2fpHNzAWqcPe4n lCspjIrkGR0uLPOnqptf i086JzBzi0ycDMBrwQDu UKbnWAM5G64gs0X3 DRWbXFBfWDI5wPV9zM9u bGlnbjogbGVmdDsgdmVy dPvlYQnwNOfqB167BVVi cDsnPlBhdGllbnQg QAouSIv1C8JtKgprpCT+ JL47WEWaLB24mJKkuADw p6skvLs5TyXjHMNgPRX8 yCgtSKhoa2CpKYFw B21tfLYsj1N7WBGlnKrb fHShCwVhrJA9zT8nRDsl ykuhm3rngpojXyizj5ay ki74fD31R52yPFtb ZHRoPSIzMCUiIHZhbGln dv1zaZ9qPo2+PGNvbCB3 lLU7zW4mFXDxLtO4QYip J601GaNzzGYoIjth g1sgz4qpzZo6IjC4XJGy odFkbXflGIN8w7XfUv99 H39gVGybXOUeFSTcLCMl RUVteCspgp1izC2t Ii8+KBXaqWH4kMA0vX1z WxVjWtF5NIhuR314RpNv rEWzDttmV55hH3HazUX+ JRGzKru7KYBueXnb QS0xwIEgQAogTu7xFCW3 CtTmTwLdDAvoP4FmVXCx wlofypeekOD1KAOfMPMj oL75Cw4rsNwhRGBp rKFJwS0omreql7hcgikg YzKfMJKcSVu9XAf0IDHt pHqvOaDmIXM5AqU2CDB1 bOZxiG0bkHuhmfwi kE9eB2RaSEBjrtetMf95 fK5eLoKdVcD5INkoTui+ R0OZRmxoHF2PT0gWNFyo SzwvdGQ+PHRkIHN0 dInrPPntBTMduI1vLRNh E5v9IxLhVmM9FVbcF8Zq HLBxjqbuJl58xX1sXcTq GiZ3ISilY9FogqQ3 NIXbpIVtUYdmYLB3M16z j0I7WHFqGHLhABN1dOR5 dT8rhDowgegrmWKogIfw dmVydGljYWwtYWxp T117MWOiiBgwOtQxBqY9 YfK8FiE2O1NsBhe8HSMu fXsaPN2ruUDeRFzoIe2q eFmmjLueHB0vQIJg akeaOCKzcX5zLJQmpWCr qEejYD4lFFDpmhztk138 XdTbKCI9ZDPgoJEoX8Ft vU0pQpLiRQQcVFMu X9NtiOPiTFrmX850NVzs MtG0SKIxrnSgU7QiLBEx zMgtTtQ7m8J5Ul06SRLP ZWFyczwvdGQ+PHRk EUC3bVboBOgoDLWunF1g QQPvY9z5LyWfSyC6ROzo T5MrHEWpgkjlWc44gE9x OwItBvM6QImyS9Bq ocF0UEZdzZNcDVyvCPX4 E25ii9D4QZQkMAGaMGD9 eOA0rE2urRwhbopqhZYb dDsgdmVydGljYWwt DIgpB575INEjxHedHr8N UTO8K9XiYfu1RANvzJfl WX6huMMdXLjqHp5vnAzk rDowIM0cYGArxxxn QTJisK5nLKFfvMEzmClt UV8jCHIchesga974QsCz EZG2CEHhrWEtY5YvvJ4v RqCfFMLjZTBgF6Tv lGQhXUpzY794FAucXsV2 QEYsraXvN0VgJJZrqEqs KgZ7f7S6Pu1RPZzuuXL+ CX58rz52M7EjVlim Uve1OPJkKFO1eYR9nE7j XKFeIGbpm3M5jJQ5O5Tq trVjse6mn9xhCPRtLXgv V69paCEsn0J5PKOq kUW8SLOxbAmmFzUtzI39 Oyc+ZNKciOhdu7NcFozl d8rjb8vpaTc7BnQsXTZr lcNcaHlfXQC6z8Fu Ir83J42rYDbbGDLcSOFx PSCrZFTktMezzp6tvC0b Ii8+LSPyuSB2eND1aN9s CaUeReX9CJgqH374 XxCybCKeQypxv5tca4lh jUl9FiKsRBUipwObmMif VLD5k4KlCn59F6SdpRqa m5AuUiu0rn34bRXj q0R7wOV6A8MdYDGbryku yCJpoGaxRZ1pRVYzbmwg VVIvkI3wNEOrV9b8HqMb EvC8EMjiT3XytmI6 YYFvjMLnCVQidOOZnO9o xzolj2pfthksGnGbYPBn DAa3TBz9VFLyrZruUbOe OIM0AbH3GIQ9eOKm yR1nsAfvntwyhA4wKha+ VFb6k0auoSLzUG6hgCI7 JJ92FZ24mPWqj5M7pIE6 O3FhNSWaolhkucor jNQ8SCFmTDVzgN77Wq5l rLytUv3yPWWiONY0NKDu fHJpC1TruM1jYeGrGPNq FAPzQ2QcpDCaQKqk A038ZZjpOgF1IJFuxxIg F5JsZWUqgTdwRtG9o5S5 Tj0FNR11WL03YF05sSVt j2V3iIW2E5SrHGUk hwpuhgwfzNX8SLOwJNJv xS20Qc5rlUfgPv6xPRAf SQU9ICXydDXbN8SrsH2h ClUzYIAaKPIaA1Np yKKpINvpR761OPcpUoA3 ULOccwHnG0GkTLTevRef NuN3i7C7Gs6GEd11RE54 LC04aTQtx0K2gAD5 V9AwJAGgcduxhhxowNA6 BXBrPJXmlB92Xs2mxAtq Mr6xYRSfGBP4OZEnuCNc C2IjjE1sJyGjXVWm OMLkU3XgfJArPUduZ219 QTfkQsW7IUCzolXkU4Sz PQYkqNkfWsN1w4Z5Hu0Q LTmcgyy9D6ZeQhwj dHI+BL99ZCPmUY01eTTq xTCkn4cftWt1XlSySFLl IIX1wFdqDUaet0SiNMBy K85qvHAvm2F6PAHu bGx (more content not included)... [facility] Coding Summary HTMLBase 64 FswwyvxvAOz8eSi+PGhl YWQ+LV9ULXJjM73yrJAt hP5aB1ZIZFjKAapnVAQG EKiWGmGmwpXyDB0nfSPy ZXJu IC8+NN0lXFSvUptmxMAe o8H9yCG9W02hsr2hCRub uYL5NAEdQnWopkfgg9xn aEe2KHiiLszhIqPh ZMSqxY81JPE8vQ49Ft42 aPDvfOEbg8corDo7ApZx VIBbVFL0gEeqWThbd2Gt QLSyR34poNPsk0Z8 IGNvbGxhcHNlOyBlbXB0 tT6eCWpfxomxl9buyolz Tjm5wy98bRDqi3D3iQM6 I2GuggJ7OYMsuLVs FsgybBBUeA4piptdk6gj vnhkQsBiQGYyOMt4IUc2 CLHvtJlsXeUuXJ24PZP7 EYXqasLuW2SaQKAw aUxgOtD7b5E3Ij0MA2IN JopjW7IGESXBVDeqoMJ+ YG87vm64C9OtKxbhPca7 ARLhLHF1jZH1nU9b JXVbSNksf0Z3yQI3Z2Pc ypHusi4vu7mhSIVdKKaq J35lvEOzg0J4SOBhvMT1 OGIqxLlnUaKooG09 Oyc+XIXxoFbyh2OmVexo h6qqq1thnCh2XoogYPYq iwGjyAddNBD8j9EmNu9f NIOfiBX5jZG1dR5b TwSlMqN8UOrkZ107OtKv cELnQpwzO12hN6SdmHL+ YITjBvx7WYTznNnrNX5z U1CiTQGbfkdyzBCu vLklBL2gIKJrgckqQECh lS3yRVTnQ6p9XmMbCfX6 KMjwR8VjQUVmwdidIf36 lY7jFiNkUlR3HJsl U2VxouW6IEBezFIlPZug OVG5M01de2H9SXJgTIWw JKV0mYY1cW6ulWetkgdg bGVmdDsgdmVydGlj DIzoAZjkE176SXZjlYjb PkNvZGluZyBEYXRlOiAg MDYvMTIvMjAyNDwvdGQ+ IWFqVHC5kFdoJEXu bLCfKNjwZt2emTdruQtv VH2qRULzqtybWLVgbA8z PSHhfRLrjKzfPR6gIPHt lrlsw817EnSlXCA1 RHZsvHBvU0SasQ9xOxGn REYfUIHwD8WooIMgGLxs C128LOdaAtW5ULRlolXt K7JuWPMtcGxoDoV1 c1H1Ch4Kk4NpcuefQ8Li uRFtBvDiSrvzJQd8F0Ms PjwvdHI+MV58IWXnNN16 DHl6MDW7oRagHMjx VEPvY8ZrlX1dDeYtIXVr ZGRkOyc+PHRhYmxlIHdp ZHRoPScxMDAlJyBzdHls JH1wLo3vHFOpCQWm nElvvNXnBwKlq0eeVUCp XMqqJH5wmUenN9YoxMT3 ZRZlh6i8Oq76G76cS9Zf dXA+GZYqhRG3lVJ8 lX4mBbRdUeZ7CZutU384 YqLfrOUxHtiwp6qpw8kx hIn3EmZ8PQXlqdWzbPbm OAH0a6SeDk04P81n IHdpZHRoPSIxNSUiIHZh vFwpjb8jcV2vVk0+PGNv yOJ9uWX2aW1iCrKiHlA9 ORfaG030AyYxgVZl Qouxk0pig3xumQd5WgHa JDFdbrRmnTrxNVA0y1Lh Ni21T4FjkDhoe2FsGdl9 wa90eZHpn4U3jKS7 J4ZfVAWuzoykmKUtyOkz KJ4uJCHmzddzWXFebB2f FKUyL3x7ObKtYuW9ALwf A0FobpV5UWDesJHw GUPeuJKXdG0iwodgs1cp hyekZxKwVGPnKJz8XXc6 CHDkwGqnFwBkGOI0QbU4 WGM9zRNceV9npTbc wxdjeG5iQzn+ODU9eAPy xDJJXG9aPuvnxTF+PHRk BBO7cKriMUxuLSCpeY1w RDCbC9o3NmOcJpU1 RKopK5SehbP9FMEliITo ZNPtlNOGxE4uphywr6mv idlmLkMiHZLhZIx5WMs6 LWFsaWduOiBsZWZ0 XjA1WUC7kCNqeA5dcAjt zchsjW2dPrx+QmlydGgg AZC7UMi3E9OrChd2WSTg hVcyMK1djXBaAUxq Xx2xeXqbpAzpXP7qGHAy pbsbs279KhHqy1bhPWIk aIEoWImqAOC3E45ge6U6 WHXlKBBkRXA2vMY3 yO1teJtnalpizUNanPnc piMyiHgmFKmiAYklO154 TLZffJtuIcDbDQw8B9Sq Vse6NAXbhPfsNK7n uUGsGXifSs4nvLbrcZwi PX0cXBTncfhud927TjRp b7ubBRWxgKFbDHbuBUX7 L83iw3Q7IYRgBCGr QMF7dGC6nR5egFzosdjw bGVmdDsgdmVydGljYWwt FIfjU213MYTxcDyyMeGu zUe1K4SgKvx3HNGy nWoxRY5daIQjTUmtXe4t rJdxlOjpEI5xXABjyuoe f067NvVqc4xnTKNbvQEx DFzoXTS6O12dv1L7 MGIdHQDfNZE2mOF4jG3n bGlnbjogbGVmdDsgdmVy lImiNRfuNIcrD890XGJn cDsnPlBhdGllbnQg BMxeJYu2K2AbUvxwoJG+ ML07MWVaKY82pKKzwHVl p9ngvPk3SsVkWFBjZLB0 oUsaQZqtv9GcTZPi Q63wlVKzd7A3BLEoeVld oCMiMxWpaRY3mR6eDBke psaig3nlagrxOkrta3pb ur61cT07L91kEHqd ZHRoPSIzMCUiIHZhbGln yb3cbT6hWl8+PGNvbCB3 eTX5oT1oZAGkUcR2SGrz W543OjFhgRLyFnya u4chj8mcaEa0StZ5ACXc cbQttAwzLMO8f1SkIp90 A38rXUeyULGiPFZzMYBy HHZvqYiahq8swB3w Ii8+XNQjdJC8uYX4lA8r LmAoKtQ3ERsgK462HrFm iUJbVxcvI75fH4WnfKU+ PXEkWgh3JLGubErp XS8woFRlRXdbWc4vXCB2 KqAwJwCtNIoyH3WmHIKu pavaedvyaNZ2PGGnHSFq eQ54Oi1cdNilFYPn dUUMlM7cklmso1ckbvwz RxZnFTUvNSw9NEw1XXDe vGazMsZdUFR1PzJ3LVD5 zHCkdB7mqMdwtjyb eG8sX3OsWYRrodawGe78 yA9oCyZyAiM9KVsxSoh+ B0TBWapkGS3CX0pVGCvp SzwvdGQ+PHRkIHN0 cBsjIUmhAJJfqM8eGBCr D6y3YrUaFqD3JKqiI5Iv IZTfnwabYl51fP1lSaZw WxR8CJamQ1RlplY1 AHSypMJmYTvsFGF9Q91m p0C7SLLoIABdPYJ9pGT9 eY5zmBgwlplimQVwcOjs dmVydGljYWwtYWxp O418HUOrsRqkMtChQnM5 DgX2WkG7I2GhAxf9ISBs kQwwZS7rrQWeIPprLj5n vIygeEwwVD1tIHCq hjbjAGOlzP4oYMWobXJj pAjqLQ5rSELxzyczw690 ThTnZFF2RYKrqDOyE1Wn lJ0jAmYaDANhIEVv W3IcpNXgBAezP472ZQww UaD1UDNseaPyN0QtAXUf tGvqUpU4g5L0Vi96IQUP ZWFyczwvdGQ+PHRk DTJ0rOmdCQpxSUQbsL8i TLGfR4r5QbDuKcS2JNrb D4WoTXDxyovuFi76rX9s YyDiWgC6YIlsP7Ih btI3MWQbfFUsLFjmAHN2 A43wp4K2DKXtHWEtOCV9 hGT6qR9wkGrvhcjlfVHg dDsgdmVydGljYWwt FFriE592USZipOpdCb4P SHB1D2VyMvt8YFQfwXcn FB5jvZGgBIfvAe2mrVhh kElrXT2fYTIvtgoq ZXKrbU0uPRPixTKkcXqn EX6xQSQewhbof487EzMx XHD7UJSzaJCeZ7WyiF3l PaNdWKLiVQFcD0Da uPQxJEblC099GEdaMzN7 RRSmykKzZ9EwZEPxdYko AyP4h9L9Fv9LJBdztUM+ EC57ah57I7HkZqek Hzb9FTDkUJB0zOO2yY2k SMBhNZxtd7H4lKK9F2Ka ipPxon6ga8veDWTbDUku K18deJPzo0C1DAXf tCE5GOMifUsjOoIxsQ43 Oyc+EPDuuYgop0EtUbbu p8ysn7fiyHo1BwSyLRKt rhBifTnwTTK6p9Bi Fc32A04tJEhlTBJoTKBi WXQgMQJajAjcoi9xrN7c Ii8+FCFawYD8xRS7fH6u FxQsBmD3XBxaV206 JvJyyMXyRbazr4hls7gt bEx5VhLsXZCjdoZczLpr LOV8h3ErDw74V9GbcBad n3GhBed6vh38wRLl a5M5kBJ1U2RbBGYlmwev tGLsyFvaQY8hOOAhpgue RPNrsS3tEXUcF0q9DsKd IkD0ZUbqU9XeypF4 XHIedGZkGTDkcBHBuR3e svvsy4zxwxsmOrIlKPUl XCx1OEs7VTFybAhcNeLn YSF1OzT0AQW3vQZz tD5bpDuypnbrpO9vMxp+ TOs1d1dapWWbXW2nfPF4 GL87ZX69qBMre9A6dSF1 C5ZwZZDnahncmbeq jYE3IXSoKHGfnR67Qg7m jHpyRv4aBPJwHNH3FKRr oSIjN0NpaL4yEjIhHMMq HRVfZ9GjhEFeDDit K219QXeqPcV9TTPxtcNq T7ThCPLjoKtuYbD1w9A0 Ld7FUY06VV51TO29kFFj g0S6uHM4J0LpNHTl wnbrstxrgPJ3HUKfOSGu rN73Iv8luHcgQz0gPCDt KIM5JVHkcUXlK3XnpB5n SgPuCXWxPFJmJ4Ow oNEoUBoqR917DGmuGjV6 MHFfuySzT1JvNEUvpMzb CuW3n6B5Cd1EZb39IB24 CK93tWHqd0H5mVM4 O5AgQLTlwtxulctioVL9 SGUuORQqwC29Qa4qjAed Bq2dJMFyNUJ7SQKzaVUz U4MsqD4eAqXhCGXr KHOkZ3HkwSVnQNmiG505 RYwvXgD2JMLygjLkP3Aw METugXqpIhT9p1E6Be2E UPhcilm6Q8MhNznb dHI+AO50CTRiHF61lDCf tSIwe4nuhTx3ItMwUMFm OUN0rPqrBEnqm6BsDVGl K36enJZkz0K6HULj bGx (more content not included)... [facility] Wound Care Noteon 10-14-2023 Wound Care Note [phone] [id number] #[id number] [facility] Coding Summaryon 10-09-2023 [facility] NsqjwjyfVZa9aCp+PGhl YWQ+ZR5MJUKpW27udNYc vS6wW1MUSJtPFxqvELEI GNlWShXnesFyAK3oiQQb ZXJu IC8+ZU0nNWUzVfbvfXPv w9A1dTO7U85cme1tIHor vOE1YEXiAaEadiqzg8ds fUh4AQsqAniaOsUo FHAnhA96HQP3jA25Qb67 wIAgbPPmi8fooGm0UhNk XEMcSPT0bYqsFTbsu2Gu KOHwP87jyDAem4J1 IGNvbGxhcHNlOyBlbXB0 nI3jMKkjtofmr0uklcyi Ndi9mx81iRYqs5E7nON3 E7PdojI0OCTqjUGb WksyjFEUoY4jhzzrf0xn pefvVnOyGZOjVEh3PTk4 WZFlsPufWoBaZJ57XTY1 HNCbvaCvC8UcMHNn rErsTlM5k5K8Oo5CO0YL EygpO0BIFHUSLIsmaRG+ IW32qx84K3NxVbsxKjd5 ROPfQVZ5fTE8lK3g MQWzIEzqn7D6jLR3N0Ul ncRkyi1rp8scYVKyHRie L40rsNAsw3H7TWTmwMC9 KJFxrXrcFuRsdH06 Oyc+NHIykCkld5IhUuys s8ebe4rfsNe1VdjjIQJl wnYkkMsmGBH4r9PuLe4p IIDrpFL1qBY2gS9o BdIzJgB4MAkwF431CuAx nHQtIujnF63uA0MqoRT+ LXIwGyq1VSOjjXtuHR5t K0UnHTDyrkutoYWj wZztYK2wDOZdpbzyDVXq cH0uZKXxA8l5UvLqCdU2 WKdsM8ZsIJJpuhctWu40 cG2nVaHtGxV0DZfh V3KkhlQ4VNTmoYStIXra CNT2M21ce0A5KGWdVEIy ZZV2fDP2bW4vrJszbkwg bGVmdDsgdmVydGlj GQubZWeeX466JIFraAmm PkNvZGluZyBEYXRlOiAg MDYvMDUvMjAyNDwvdGQ+ DLImRJF4gLduMQXg aWMlNJzoBd8pkNyglRpe BM5vYQQjowxkAIUrtP2s DVJviRMgkIqfEY0rMXKh qsunr668VkXcUNB9 JHHfuAWuE9YpoC0hBhSa KVGgNYBeF9QxyGZxUCqz L605JLvoWiP9YPBkdzNn I2HsRTXwwKjnLbL4 f1M6Zs6Ll5YyhuliK7Hv lDNtKlFxXombPQe1D2Gt PjwvdHI+EM60BGVaQD98 DKb0XPY9qYnvCZxy NGVcP4ChaU9uUwTbEOUw ZGRkOyc+PHRhYmxlIHdp ZHRoPScxMDAlJyBzdHls LR4uQr3zTYEdZDRf jDllvVOzCtUux0uuGOPk TRgoOR7nhYhpP8UgpRS3 SNDen5f0Kj83Z35fP5Af dXA+BSThvPP0rBM2 iA3oYmTgLqU3WZikV146 QbUiuYQxZwpdk8qbq7td nWi8NlK4PGVfydCgoFmr WSI6e6NzKu72N62y IHdpZHRoPSIxNSUiIHZh jSfivo2inK8rGp0+PGNv jIW4mBE5sI3lXpHqYjK3 IJagL019KlIlwBHe Ftjbi0ifi8wkyBz5NmEm XLTuufWelMkfSWG0u5Ya Nm26X2XpvBdxo5PcGnz1 tt37tBCzy5P5gTJ8 G8AzTVQmvoumaQWvpLnu OA4kGXGlegeqEXZenR8n GCUpV1t1XqOxGxU8UCwx I1CyguP9ASEtsYMh ZDNfnQLFsU4ubkwof0rb iqgbFfFmDWYhILi9WUg4 TODnyPfkSjWxODG2UfB3 VBX2lZJhqT6yeFww ydejeH6sJyy+MHC7vUEa pURCKQ1lTbbjjIG+PHRk HHN8eOrtEFnoEMDcnK4j ZTQdL7z9ZmDiBkS5 QWwcP0MwlsO5EYNonTKh VPLtkETInK6qcaagv2nk oqbhJoLgUGSwDLu2QCm6 LWFsaWduOiBsZWZ0 BiW6AUR9kCGweA8sfIrz ynqxoE3fJdv+QmlydGgg EHK6ZZv2O9QqDbk2LXSv bPddUH9ycYKbDRwh Zl7wyAoxsOynKK1jUNYb ehpew308EtHxn5ruJKFg jWFhDPkyMZO6E84rf0J2 CBTsUOTcNFS4vSG8 gD4beIscughxaSAdeUnw vbExdEquZBdnIEyjZ713 HNRubUlkYjBqLOk7P3Lb Uev2YMItvDpwEA2c nMKiCFarDb6zqDaniLmd CF7lTLShtbscx292PwWa l4ehRUGvjSMeTUbpJHG5 G41ft3T8QBSkYNXo LIB2qBS3cZ5uaKmoyvij bGVmdDsgdmVydGljYWwt NBfgG763MVBxqIayBkUs zRg9O1UwTwq2JBWz eAoeMI2nbCYeMInrWt8d vQaifQcwRX6vFCEqfpvj c462FtQfp5hxJCBuvHLa PYdwOLY5K04yg2M3 KNFvVVEdXOW3kPL3cI4l bGlnbjogbGVmdDsgdmVy yTcaAIhuPZxbH026YBLo cDsnPlBhdGllbnQg CJefZJh9W3HsWtbugCN+ IU02VIHiTF74mYXrvEKt j5gmfTo1UfXhMSSqEPV9 fHufJBdkm0OhSXBy V44xrJZpx3O0AZNtoAfd uLShGsYabFE4pZ3qFNzu iojpj7xsfcrbIdnzi9bo ai78rY37G19oXCdo ZHRoPSIzMCUiIHZhbGln gq6beD4pPy8+PGNvbCB3 kWO1eF7vGWVeKyK1BOwz K027SqIvrGHxGipl z7kop3srcJq9LpW8GONq gnLolLneLPJ2h9CiLv67 R21yZMjeFKBhHQJkZUCa VPMkxZfucq2xjO0n Ii8+GTCpeFH4zNW1eQ6n RxXkBkU1ELigM253QxNl bMYqBnhzB40sG0ZywYI+ PUFsKxg1APKlwQhv SI9zsZJcWTndEq0uBJL7 CqGnOaWnBMnbT1YlXWMx mdrsdfayhYT2TKLhIYWo uB11Pv2fePjaXNQl xUYMjB7rchsjs3vbqbpj KlGtIJWfLNj0ZHd1OBOf wLxoQoJmHSQ0HhD3SPG7 xQNppD9irVorkpjy pS4uD7CpMNAasckaLr58 mR9bGoZtElJ8ZLlbUzy+ K8WBMvlrNO2AV1gLPYbf SzwvdGQ+PHRkIHN0 oOvuFWcaPVTnxL2fPJFg Q0h3KrRkEeO6YNpvA5Zp OMGbngtsPp82qY6oIlJk RiP4DRbxK8EbowV7 MWBevZXwCIpgYCC4K10k k7Y7FMIxDIMlGYL7yYL5 qN7siSaktofcwLQsbMgu dmVydGljYWwtYWxp H159KMVcqEnuIsXnNyM8 TiM5ShL6I1KrYhd7FHJe zZpzHW2noLKoPUpgIf5j qCmljNexBG7dJYDw vrpwNDBmaT6gYFSanQNt lDevON0xGLYiliakf271 XlCoNNH0KKAleJCrQ1Yx tV7tWeItHAZrAELo S3KebAJrZSwbC067HGub QzO1RPWqadPwH5NvSLSy sXbrAiH7t5B9Xj12GXMY ZWFyczwvdGQ+PHRk ZWE9eWosMXkuBZPpcY5a BGRfM6j1IfLrQsU5NMql Z1AeILUsqwmzQv39pN5j OnMuKzZ0LRnkE5Aq fwF0BHRqlKByTGctJTP8 Y75xw5Z4CFGbNMIaAMS2 bFQ5dT0gtCixetwevVOl dDsgdmVydGljYWwt JZykY637TIUnqYbtTn7G NMB4Q4YwQii4KJLbwMdj AD2hnHRkIYmqAs8tlWfr fLbmBD3oSSBsqecn KSUgtC0fOBTjsJMyxDgg FN1iDJBtnykol056QzFg YAM8SNHaeBWqY4IrzM5s UiStNIQfZTFcV2Vr fNFjILssR651QNhqGiE6 IJVtjnBeL9JnKEQjiMsp OcO1r3A5Ce0FZXbcsQX+ ZE46eo48P1GmIrxc Fsu3CEXjCBV3jST6eR3l RDZvFVhct7J8hIW5Y9Cc bvCefi9wu5reCGKeCZpu R46ezNWts9A2EJZl iGD5ATGodUgxOuHhxN51 Oyc+ZKGnbElul7GyRfzb d7ppb0ebeId7TxIxNDCh fqWpdFirJYP8t2Dq Qq32H48tHAwpHGYvIAUb HPFsOCSbrIeuvu9wsK8o Ii8+GHOxdRI2gKO5eR1m TuUyEfK3CHwcP988 UzMqgLUxHshhl9pdy8mi oJk0XoSgAYMezgCwqMsn QLV4h9GtTl24K9LkiPrw k1QyJzb3tz27aPQx w6R2dNV1V5PbAEJceqwh vTUghQbmVI5aJVLrmlix UGTuuO1yFFNtO1r7JuRg YgF2HPmsS6FbghT9 DUDjzYHpQHRifXGPnC7r tpcqx9gcjneuFyKhPKKz QGe4RUy8WLNfoOyjQnDi ILP5TyP3BKZ4mLQh bY9qtYaxyckedX5nOkz+ SHn1t9txyEFxGH9qkZG3 YR13GT68qBRut7M8rVC4 Q8RfGNHdrwcvpqiq sMU4YVXlISCrbD64Qw5a uBflZw4hXHYaCEH0UKBe iJKtO4RxwO4iTkZrHLEk IRFyT8PdzUVbNYqp X581HLqyWlY5WCHgtaJn X6RaUEEfmZocAfF8s6O7 Dq9ENI34DC08JM82aWDw k8F8jTH4G9XxGSNf wohfkbxygPV2MKLwDOPx zL88Kw4wtOylKb7iSYKa AOV0IOCacSHlQ3UhhI3h FaToARGyBPAnC3Pm nFMqGLarB523TKohOlZ4 MLZxssOvY1KeYNByhNaj PkQ3g2C2Pk8MYe93IK14 FO14oMZkt9N6wMT6 C6ZzNAYbjexahaqclSQ4 VYAdAUUlsW60Bx6vlIhb Wq3sVCFzALG9RBOzzQUg M3HrgA4zLqSnPWHl QHYaF0VpkNMmZVahV721 JYmrGhK9LLScwkReO9Or IGJkqJxeHuA9d6T9No7Q EDnijxp5O4SmXzib dHI+IZ54UQTtNW65zBWn lQPdt1kigSq9NuWfJRUg VWF4nCpeWEnfd5PzLHZq L77eeMMvx5K6QOVz bGx (more content not included)... [facility] Coding Summary HTMLBase 64 PmphwkhmVKk0bSn+PGhl YWQ+KY0CVNYrN41amSZc pB3aK7UJNFyTEpngDZNT OZwIMeXfddYlFV5evWLh ZXJu IC8+TG4mRHUlFshrsPYy c5R8pBX3O09dgr9zNMym uBW4SMQrXfFfeyvib8vz dIv8KWxoPnqjSxJz ULOwzB96KID9dM59Lv88 nOMcoYVau0pmmAg0FlDr LBKqWPS5hBkwDSoqx3Ol PMQkA81ziXMed0H9 IGNvbGxhcHNlOyBlbXB0 uS0zQGzlgwlfs5ixumlk Stq2lp76gETod0P0zEC9 Y4QtnaR4RKMrtUIi TrpymQMDiX5jaybvy4im ahsjDpYeSPWrSGe1QBs1 FIUsvEwyVtVwOK60HQH0 FUCemvIvP1PmBHRw wKqlJyM9l6F5Wf2JV5SB DqmdH5DAGZIJMSjkvEI+ CW22gg36M3KhHsobJzn0 QILoXMY9nMP9eH3u RJZyNCgyt8B7oJZ0L7Ao rwMxmn6qw8huBSSdBNkt R72xaIAtb9X0ZABpeMT4 CWYzcPnlMwDeqJ80 Oyc+RLJyvWshl0ReJeeq m2uhl4pmdFq4VkoaEKFi nvRouOdlKFK6b8OeJm8w FNRxiSS7fTX0hE5d ApHxMkU4ZFalF671YrSm vKPxMffdQ45bI1KgoWD+ GVVbEck6KYIcqHkeKA1l O6LfJAElmixggVRm pGatMB0aVDHjzdlpSNEk eV6gKTIbW1m0WbMsWkG5 YKfcE4FwXMEwdyidPi46 cO4dFpKoRoA8NXwj M1PdmxJ1UJXihBRcVLir BJH8D49he5C8JBMkXMQv YUY2cBI3oF0taMjdoacw bGVmdDsgdmVydGlj SCsmNYmgQ741ATGdxEyu PkNvZGluZyBEYXRlOiAg MDYvMDUvMjAyNDwvdGQ+ JMInATZ4qMdeSBLh eLSqQHjrFj0ykHefiBqk TB1kCEUiywsvJAJbzU5h GYAqeXImdKbcQW7yMIUk zijlk752FpMzCAP0 CYOfjQCvR6InpW9tGtDv SEYfLZXaN6PtbWXfHKfd H089BIgbJaR3ZLAtnfEr U3ObAVYqgFxjYrV1 i6R6Xp7Gn7ErwwngS9Dz nAJpRsRyKyrrRLl0K3Af PjwvdHI+MW04PIYwYS38 KVd0OUM6iBlbHRam QSAxX3RgdZ7nWoLyPSHc ZGRkOyc+PHRhYmxlIHdp ZHRoPScxMDAlJyBzdHls WN6aIt4bJDMmDEEq pLcwuOKsGmTvn6cdDOEn RGzoIN1qjYgoV0SahKO2 CKJqd4s7Ty11S20tA4Ef dXA+SEXpmHA1vSN6 kE0iQqFbIxH1HPnaH037 CgRrzZNeGrhni6jnr7rj wKm4TkU4BWTweqMszHql QCJ5v1FzRz91B26m IHdpZHRoPSIxNSUiIHZh mGdcqj3gdX4bQe5+PGNv vZL1tPC3xD6dKvPwCoD2 AVllA500MuZvoVXn Mnqqy8uzz2tmnZu7ShVd ZZCwqfXyjYseCNQ9h4Gp Yq66W7YdsUwxu1LqQfx3 yc26aUAit8F8aPO6 D4UaGHRwftmeqAQntKkr FN7cDLTxdkdpXUOhwP4a CHGkU9x4XfBzMnG5VFak B9HpstJ2IWBilIFo NEDmvRIFlR4nvbhfs5er pseiNhAvQYYfNPw3QRm1 KNGonBcjAfXqNKW7IxQ5 SXO0nIZllX2afEmm fpkdsL8rPfs+CWC6pBYo xOZNYT9uHehprLJ+PHRk OFU0bCsxDFwrUAFdvH0g IVLyG3c5HxYmRwA4 JQzmI3WsmkD9XIEcvINx JPMwfNNSbG0mncnrf5tr utobOvJyLPQoBZu9VKy0 LWFsaWduOiBsZWZ0 MdU8TCE0dEYphZ0chIyz rtpzkE4lWyg+QmlydGgg FHF5YBf0P8UjAkc5LOHc kRnySG6xcNXpWUfw Kn6djEgbxIpbDP6eLYYy giuud613JgPjd6rgDAQj cCVkQXvqLND0E44qc2N9 BOBkVGYaPYZ8ySU2 jY5guKfukvceaWSmuWhf flUvlZpiNRreZVblB034 YBUftGreZvUsXEk0A3Ee Evn7SBVbmErvXW6w xINsFLrrLb9mlXqcuCjf PC7cDINnkfpcr670LsGk j6jdAIHivDQkBSdrDFY0 U61ac5M5BDSjJGOs XPP7zRH6zK6bnHzeeblp bGVmdDsgdmVydGljYWwt FAbcT928CPEckNtwAwJd kSb7F8GqHmw9XWKv mNmrTO5jdPXyEUltRc7k nIbabUmoWX2dELLanlid p355AzGvz3djZLNitSKg UFazYUX1R83hw8W3 XOXhBUVmUYN3eWI7oF4i bGlnbjogbGVmdDsgdmVy mBwtZTqkVKtfL677XCWv cDsnPlBhdGllbnQg VUdkVAt3I0LdUhtbkZO+ OD11BTFwMZ22sXRnxEAd c5cheFh8XbVyEUFwIDC3 wYokQSrsk5IbTXPh K68kyJMwh4O9SLHpfToz iWYkQrYcgKH6zI1vTTfu pmkcd1lcvwgzOnhpy1rb wq76iC61J37nRZyx ZHRoPSIzMCUiIHZhbGln yk0qnQ8kAs9+PGNvbCB3 cRZ4yF0bULDmQgQ8BPuv J590JoHjqYGlUofr n9gmf7dhyRs0FtF0LNKv aiMqxFhjJAE2q1QqTr66 U29fGAdsLVWgYARfJKZm MKPqoEdpka3pcL8t Ii8+WMFfvQQ3uVF1lZ0g BiCcQtP2LFdiB087KtRs pSIrPdpmD60eY3YgaKZ+ XQWeGdo9TDGbxScu NB2jxFDrQQgsKm9vMTH2 GeAeBxUtNRmrW7KtBMGt ihbugechiUJ0RKXrMNOm hE05Sa8wbMnhHDBh gRQLuZ3dakjgb4cahttr LoWbBCUfDIu9YZb8UACa cUnlZhGmEUR0JiC2VHL5 oRImrR5dkUilbqnu eG8fL7BfEXZfrtrbTy99 tQ9oOsXuDpG9OTejXon+ S1KBBivlLU1LI4hMZVja SzwvdGQ+PHRkIHN0 uMmyREkdMRFmiL2cMBCc Y2h8MjFfAhK2ACmrX7Ku LJBrnayjZe56lS3lQnKq GuO8VFpuD2RwryR3 DFAbaJCfMWqyTOU1D76c z9Q4VLRvPRNdYOY9tMI1 nG7agGxblvxzlUFhmBzv dmVydGljYWwtYWxp U611CVMjvKvyMaEiAaS8 FdW4GvO6E7UoSfy5ZKYj jMchIT3biQTpVVooLv8n zPmfvPhvGS7wZXDo xgzvXHFivU1bXBSirIEt iMorGU5sVBDbkpxoe551 CbAeVYI7OAYcvEIeU0Fv qZ0yNxDoBODmUQHf C1NtyQGgQQeqP228PGik JrC0ONGeugOkD1IvVQKm yRqfQdR9s2B7Wx39LBUC ZWFyczwvdGQ+PHRk KWS3tStzZYenUKVimM8t YUBkY9l8YcAlZhT3UYej R7IdTCTstzlnIy32rY4p TqHqTdJ3VNymB4Tc acX0IONdmJQjYIrfUFI8 X25gb9E0HJGwKCWhNUG3 zQI7aE0ahOkjolikiPFg dDsgdmVydGljYWwt QSgkB684XPQxpCkvTs5R XZE8K8CrRza1RIIqqTlp PU1stDPiUVlkRh4lhYvi mNnwWL1cTAFhtukp NEGneI4cGSXukFUqsWqs GN8iLBJvhwfut079ZuOi KMD0MJWnjSEnH2PjnR3n LlRwTSSxYMStM3Xt tBLgCBtxO632UFwbHyR9 GLYvkiMkZ0SzDCUkzCnq HwH3e3E7Cm1HXUsvdKE+ MS05uu85P3RuIuve Ynn3BIAvLMF9eZN5sH6f XUToVLloe2N4qXP6M5Gf ptAfzx5rc4juECLgELcq M13opUKib7A1LRKj xMA0GNFgdKhkOdJpbI09 Oyc+CYRtdGtrs9XrCmov u7xtr7zerLg6VoDdTZGa odHjwHdsFFG7u0At Np97G68cIRvhQAFmFWAw TOGuBUEkkIchhi7cjJ6v Ii8+XNLjgCI1hHO9vS4x EcAhZhU7BNpoE033 JnQljZWlMxwsr0ooj1br xOk3XdMqERVvgtKncEzi QFO6m7BfKf35D1OwsMml y6UbEyv0se07jSXv f5V2yBX2P2YtLVZbevjv mFRfcLbdZT3fEZRkwvnu DHZhgB1eIDHfX8z9HjLe UsQ4NGlpT6OtksP7 KDEufNHxYQTtsMBSpG0k qigcr6difgneIsJwIEGs BXc3BAo5VSTisNslDxIh XYI0JqE1TJL8cOSq gQ3vyVimgejvfD1wVhm+ HVl9a5hupPLtQD5hjLO4 ET30MJ00mSFoh1V5cPW4 Q6UeCPSqzltohtba aPV0VEOeVRIcbO39Wt0q pJmyVm2nVCAzDDJ3JMLf zQJwU9JouS6wNbUvIEHh ULFqC9JqrDNdVAdw H849PUixYwR0YSWjvcFw Q9GwFYQzwZujXjW7i8G9 Sn2UAP93KX07OM64qUVs n7O5xFD7S6PfIOAq njssovlisAM4JZCsHHUr lB95Rj5coSwiWp0rKFMf AKF4OWKzgRJkP6JtmA2g NiBcKXTdRTLbB3Oi qKQjNEveA599JSxvQbY3 ZQOlzyIfT2EeNBKzfFjj UeP1n6Y9Ly2AVh99DA90 LU43iGIjg1T0sZV5 L9ZkWTXbjfdzcgvhqKS8 RDYuBXEriN65Zd8jyWaa Iu1tFCBqAIG1QXBkhSOv A5FwfW1kJoUqJWQv CYOvK3IkkIZhHOhrN079 DChzUdZ6QNNiflIhR0Zj EVJlwYajSaH5h3U2Lk4S PLsxlsn6P9HgJceo dHI+TS67GQMxEK52qOWb pVWia1wwlPp9NlDdHYXh AJC6lZwdMMaoy0EyTXAr H56kaBRyh2G7VLRy bGx (more content not included)... [facility] Wound Care Noteon 10-01-2023 Wound Care Note [id number] [facility] Ambulatory Patient Summaryon 09-25-2023 Ambulatory Patient Summary [address], [address] - Visit Summary For YRN RICARDO Age: 63 years Sex: MALE : 1960 Address: [address] [place] [address] [address] [facility] [address] [place] [id number] Home: Work: -- Primary Care Provider: LESLY MELCHOR MD Race: White Ethnicity: Not or Language: [place] Health Plan: 1?[facility], 2?MEDICA[facility], 3?[facility] Reason for Visit: Three month follow up for med refills Prescription Information: If you have been given a prescription for narcotics, seek immediate medical attention if you have any difficulty breathing or any sudden status changes such as confusion and sleepiness. If you or anyone you know is experiencing suicidal thoughts, mental health, alcohol and/or drug addiction problems; contact the [facility] 26/11 Crisis Hotline -Text 4HQZH mx [phone]. Follow-Up Information With: Address: When: LESLY MELCHOR MD [facility] [address] [place] [address] [address] [place] [address] In 3 months With: Address: When: LESLY MELCHOR MD [facility] [address] [place] [address] In 3 months Future Appointments [facility] Appt. Date: 12/24/2023 2:15 PM Scheduled Provider: Lesly Melchor MD [address] [place] [address] [place], [address] Future Orders No future orders Additional Goals [...] 3 m2 Body Mass Index: 47.2 kg/m2 [place] Body Weight Calculated: 84.047 kg BSA Measured: [...] for 5 week(s), 0 refills authorized Instructions: [facility] Flovent HFA 110 mcg/inh inhalation aerosol (fluticasone) [...] tab(s)(650 Milligram) (more content not included)... Normal [facility] Patient Handouton 09-25-2023 Patient Handout Orthopedics [...] walking or exercising. ? An inability to immigration specialist items, twist your hand(s), or control [...] aerobics, that increase your heart rate. ? Jznpl-sr-cqaoua activities. These help your joints move more [...] above the (more content not included)... Normal [facility] Coding Summaryon 09-20-2023 Coding Summary HTMLBase 64 ToksvvxzMYb5aNd+PGhl YWQ+KK6FCJLaR50ujZEf nN6xD9UKNXlTBahgYHHF KAgLHbIicnFiIE2juNNx ZXJu IC8+GW2wFBLgGublcWVm a9J3cAK1O01ftc4tEWjf wEN3WDXaVePtceqfa7ff eSq7TXybLonhNhDe XJIkbU80RQP8kD35Jm00 oBDstIZvs5adaIs9KzZj CKIcICU3yLlbAOrdg7Kl YUSdD43shTYpb0P2 IGNvbGxhcHNlOyBlbXB0 nA0lVBnveobpq5iemust Mwo6js43hUZvr4W5eNA9 Q7TplcK2JSNyzIRd TkxyvNDVqQ6simxoq1er lnvfPvJoCMSxCAd0GAx6 ARTqoSizZaUePP01UQN9 WLLabrPhK2OaPCAl rXofUrR2f4U1Yr8EN7GZ RriwJ1VYUHOHCCznhKY+ ZB95ms29J6YyRvquNdn4 XYSlEMO1iYJ3nM2v GNPrTLbiv2Z3vLJ7J3Mc laMtkk2gj5imRHEcNZul X49rsUHhv8U4DBQjwIS5 TSQuzRwwAxZzrZ39 Oyc+GNLzkKyki7TrBjnd n5zdf1xhlSn2XkgzMGUg haIgwVphGGE7q2EiMu5t UVRouWB1aDG2oD7r LmIvTxD3ZLbdK003EdYf qSQxAkrbG26tW3StvIU+ LZJkTzp8SVCmbKebPA1i S0RqUOMieuwkuVQe dIjzJA7rQTJrgnmmHTXb tB3sWQFcZ7x1LxStOtW7 FKvhF6WwNNWpuesnAb66 oC9dYgVaLsP6KDya P2LewfY7YRBleYFbHJyv MCT1I92ji3L2FGIfBESq RUG0uMN6eX1ljYuuwuhk bGVmdDsgdmVydGlj OJnhVZfuW877OWRkwRay PkNvZGluZyBEYXRlOiAg MDUvMTcvMjAyNDwvdGQ+ TCNlEAP7lJpvRILn yTOyHZmcKw2baUcweQnp OB5tCTEreohxEKIifH4z EFOqrJEjyNytFC9kFGQr ucjkr101NiWwSIZ9 VARmtPTuW8WbvU5wBaNm ALUkUJDxG4LflAUmOIgo A591TYutJyL5QCDnvaNo Y2FsOKYviBneAlP7 d0K6Zs3Bk0IvazcaX8Gx lZVfNqUvChwvTVv7J1Ud PjwvdHI+OM46JQYhKN04 ZHk7ZRM2aQbnYBje FLTwN5VnyE7wMtHgRXKl ZGRkOyc+PHRhYmxlIHdp ZHRoPScxMDAlJyBzdHls SW5sQx9mLPAgSMYj sTygvQXpUpKjc6feEFMj TLvgAE2yuHshH1KvoOK8 SLOza8a7Lm75N33fH8Ja dXA+TFDqaLC7xKO2 rT9bXyCkVzM7AUkjT495 NrOysARgIeoqz7stw7df fXh2EaK9LVQgcjOgxBjc TBN2q5CmHo48I96d IHdpZHRoPSIxNSUiIHZh wKzvqs1tiJ8vZk2+PGNv pGI7zFM0pT7cBcGnVfQ8 OFuqU467CfFnjPHk Qenbg9bjj3thoRw3VzVu SAOqjuUbeLxhOQA4i6Ct Xs16C0ScpLpxl0DzTnp2 iz39aOAxg3Y9rHX2 D1EnFRIglsrriBUouOkj AO6kFJXqcxgjLAPkdQ5r GELhR2p3ThNeMdG1CZsm W4XlodE2WEExkFHw YIIovRYIlX1yxumsm1nv zjigGiDqZGQpCDm1CGz4 DCKkhWftEcOaCVB6YcK4 CZK0dLCkyE1ztXmu gvuybL6cTrc+XVB3sDGk lPFVXG8mXucliWA+PHRk VBS4iQsvMTqdRXYteL5s YKBoO7j7KsQiAaQ3 RZkkO6UkmoF6IMWgtQGt CQHldHNCzZ0odfxyk9xq vrtxSgEmKGAiQKg2KJa2 LWFsaWduOiBsZWZ0 PyG0QDO3mPCqlF3kxBki anbvjX1eIbq+QmlydGgg EPO5GKf4A8HhQfu3AHYk jDphSQ3omVSvMIso Pa1kcEuccQplME3aXUIz hxcvn181WgPzy3rtNFUj cJKaDCgnQDJ6F47ba4V5 EPFqWCAaSYI8uSJ6 vG0qmOrovfmftWNikHjb wgFwwZakNCbyZGrdZ843 SZKfpTloAlMnYWw4S2De Eeh6TBIffFlpPJ9c qXHyUPbfSc0qaJuedGlz PC9nIPYsznrmr576MeMe t3voGQEzdPAqLNzkDEY0 A00cr5Q9OPKvRFLz XPZ3oPN6xK1kfPdgpdyc bGVmdDsgdmVydGljYWwt WXebQ446WEShmLsrSlSv cGg2F1CnXip1OERn qSxxUY9mnPBnOOecMz9v sYbaoEiqZQ5fAGKhcdsv q744JpWnc1keRKGzxMJw RExaNQK5I05vq1T1 TFCeKLEfWVL6xQE8yG3q bGlnbjogbGVmdDsgdmVy fCatQRxvYFqzX597ALCi cDsnPlBhdGllbnQg HPnjHKb8E8McCaniqTF+ TJ55BMIyPZ98bBEfyJLq o4vfcFz8EgNuTKXiYPG5 fLygLIjyu3CyFWCj X78vsVRld6J9IUNqlJba iIWqNmFsdHC5wQ3fXDuk tmxke3yuyxgjHtiuc0ql xo15qJ35F16zNLpb ZHRoPSIzMCUiIHZhbGln wu0agN7gTr0+PGNvbCB3 lIK0cX3kBLEgVgU8TYmk T328EvPjrCOkSxdt h1xdz1jxgSm6VuE1ZEYr htGzkCzuNEC3f9UmPu78 C85qDAwpGWCcCOEiTWCd JZTzzDhohz7cqC0x Ii8+ZAYefJW8gGW0aZ8w DeTjEbE8ZQezG622MnQi lZRgSrsuN63oV2YvtZP+ KMSuHqq4ITVnhMpp VS9opDYjTQesKi4aCLW6 CeZgLxLkPTobB7AdIBSv wnefeyjkzPL2SWBnVNVo aR58Fk5zwJrfGPMh mLSTlA9azoptj1nwebpj BoMtXFLaJJc1CIm5DCUt lVbcSpVdYVB4GsF0WZL7 fBGvwV3dnRnscaef vI1fH2EmYRWhawzyIu61 pV2kNySbRzE4VIeoXwm+ Q2OLRbsnNL3VK3lUOVyb SzwvdGQ+PHRkIHN0 fWfsNItsCEDghH6qCOEy H0y8PmHvGrY7JQhoB6Xo NNHupupwCy30eD7sHvRh NoS1SIjsF5VwhxW5 GTZgwOEpUQrvUJV9P82g c3A9XSXaLCWrIUK6nWL9 gD9qaBkupbvobWFkgUoi dmVydGljYWwtYWxp C838WKKfhTjfCbAzCtV3 JjU7KfF0W5IaFwj6MELu iTjaYX1nbVHqUHkzEa7x uKdzwOfgWM3cMSOy fmopYZBuoP9yHTIviOSb zRraJF5jXQZxafozw549 ZeXlRTM3ZWNuaEBuT3Df bB1nOgTsDWLzDMJi U6HnlVZxBDcgI891KUtq TbO5FKVwbhRtE0CwMCXc qCmuGzX5x8E9Sy89JPKS ZWFyczwvdGQ+PHRk FZU9yHumSFmxDSPyuA9p HHVkV2y0IfShVvE5PTxm W6XjGZRkstntGf96bA2s YrAbIwY0PLmbK7Dp owW1PNOleANsLWxsRIW9 W80au6E6IFFuTZHoOLI2 nYM1fD8syBrevxkigUCf dDsgdmVydGljYWwt IZzwW128PHAsqZhiGg0M WQZ8G8BrZcr4DXJfkIxu XP4byVCeBPwgKc5zaSsu yBncUO5qQHVhvkrk SELlxT2qIHMorAHweDzd IC9bLUTgcekpf941OhGf MOF7IKOedRYoZ8FwaN6r NlUcQGIoUSIbE5Or kZUkZSebA942ULvqVeL8 NENuyqTwG0NyMKBmpTre KxG5h7K0Bg2PADfvaFR+ PT59mp33I2IlMrky Enl2WJFiZGJ5xQJ4wR0d GXByIEvrx0Q3uOU5A4Et pbQpzp2oc0nvJFJnHJor G96mbGXuu8I8GXKm bTV8EERbjGtvVbCqvS62 Oyc+HEUunFgmb2EbDgmz z4bzf5xtgYz3MuWgVTAq knXsnKitNRF9w3Gr Uo56O33jFHdcUHVtKXHe FOTcQRSusYhbvj5fcV8v Ii8+LCOjnOB0tII9bP6b FjIpExT4XTilK280 HhHxcKXtBeexg0web8jt aAu0OpNrOJElyaVgjCpm SNV8k5UmHh02G0BfgIli i4EfSny4jv05dWYz q5K2uTJ6U1ZqSNTlgzyb cILeqXvdET1kHHCoogtp ODIokY9eNPRlL6f8YqPf BhG8ORceQ8LthlL8 REGkhHUwBXQalEFWgG1p vfzdl3ozggivMaZxHIXd MBo0BAm0HBTqpQkaYnWl ITT4FlU8IDE2gZCb sT0jjIafmieuoK1nVww+ PMp0q9deiTVaGP7knTZ3 MU31DH98oDQto3O7uUG1 X1HmJCZhvzqmbivu iFG1LJCcABNzgU17Vq2i vLmoSw8oDFEsYTB4YGHb jAZqO4KqlK6kMhWpMGQo ULDhI2ZabZYyGSnf M130DBhcWeY6WJFswbNx S8EqSZIooRsyJmZ4v8W4 Nk9EZL45UL73XV43xQNf w8A6nWY2Z4QuSQYo atqddvfzjRI4BGFuZDJo jD08Mt2txRmtZa6yJMJn AND0WXYxvHHoE2NypL9y TxHoPWKdKHSeS1Vi wJTfAZhrE263LAsaNgU6 DLAdvbIaI1MuPZGxtGsj MbF9o5J8Ss0GHi12TF30 XA85gMVhe8T9yDD9 G0JiQKWqpufigsuziHX1 VALxUWEcdK36Hm7jxNjg Wj7oYJNsIZA0MZJghDDj E2PmqH7yIkAdYQOj JTZbE0PglGLaBNbaO095 IJxiPdC3JJNdwsHpB3Rr CFJhzPgqOeQ9n9J5Fg2M QYmqfsp8S0ApSvjw dHI+YE11RMUwCQ88hIRm bTNyz2jwbVm8CbLiDHOy BMM3mGdsZGqla1EwNCEc I35lbTSzc8X4ERIv bGx (more content not included)... [facility] Coding Summary HTMLBase 64 IzkbwrdnRUc3dQt+PGhl YWQ+KU0ZFZGiS73hdGGk mC5bK7CCFHuHKjtcVVUQ HWkRHwIhohMnZN1ikREd ZXJu IC8+IX5yHJUyUjjfjCJx m2P3vVQ6H14qrs9aXYfz pOL6ZXViHfXlvhwct0gt fXk3XStzQdsqGoGt KHOtxD52NSC3zM41Kj68 wCYdzSGfb2vjyPk9IbRd EYYyRGY6oGvgBWzkq3Bu ROQfR21ydMQnp8N2 IGNvbGxhcHNlOyBlbXB0 aC3gXPlgunplu2obtdhe Jry1bj12uCZya7L7oEU5 M6XwygV7HDGdaXVe NxdlxOYHgA1aywcjf9we emtaHwPwPHGbZZb7QZq9 RPZstLdzAwEqIJ53UKY4 LQFtpnDrV9PwBWGu eKsbYpJ4e2X0Lp9GE7SW NpjoQ6XCODPTOAuekWV+ JT74zm72D3DlFwkpMjd9 GBLvUPK6pRB7tJ2a RFJzPUmhl0X7uSV9V1Nl unDlwf7we9hpUDKpRQge S11qwDBxm5B8HLXrqGH0 AGWtrDvgDtSqeV56 Oyc+BNKnxYfvk0TkLmkw a9ihp3znpWk2GprdQCAl kyGhaDbdKDX1t5FwTj4a NCWopFS8kTQ3sL5a SkQbUrB5OYpjP196BsAq xXXfZskhO30qL0DvvTT+ DMSgXmo2PVAzeQipGI7n R3ZlRHZbpsgshCHz cBolWS8sQFFbkuuzIXId nU7yASBoU8i2HdWtOvH3 PAnyL1NmFMNcsqknNd41 eW9uJsCtMsY6AHii F8VpwoH8XNGixVXxMToo JLX2S59ei1A1HEJoKSPs YYT3jXT3kZ5gtGvfyghu bGVmdDsgdmVydGlj PDfoJBssL678WDSvfOsh PkNvZGluZyBEYXRlOiAg MDUvMTcvMjAyNDwvdGQ+ WDJsMCM4jFrtAUOp gNCiGSgsGj2viDgruSxz RF1pJVFkrtlnWRLoiZ8u FPDjtPRnnJvfQZ6cYBDn artpx555EfOpBQL1 QKVihPCnH3JvsF9jNwMe TUEhFCRqQ8XcdMZnDBqe Z101FMvrQrK1CHBqmqZi D3JcEVYmwJxgImV5 w4Q7Dr1Pl2GtzyghX9Tc yTJhBxOaKzauCJb1H8Yz PjwvdHI+CZ97BGDvZM34 LYd1FBA0uQyxLQcf JGHgZ4QluE4wPoJpTGOg ZGRkOyc+PHRhYmxlIHdp ZHRoPScxMDAlJyBzdHls WJ7jZx7kAXHlHYVq xSbfxIQqIjAog1miVFCm WGguQB9sfFssL1XqaBO8 HJTnf4f6Ut47H75cT7Dz dXA+NHKurKQ4wCE8 pB7eDpWiLtV6RMdyK970 JvBfsYRsLqumd9tuo0jz gOy3EvY4DHCtvwUhuVlp TPI8z6VrPl18M00j IHdpZHRoPSIxNSUiIHZh aOeybp6xaX8uWy1+PGNv kGW0sAV7bZ9dHgWqKaU9 EVxuH068BmGubPNy Tolev2zac9bioFz0HdLj VYArnnAorKsxEPH1m4Nw Tk11V6FqbHovf8PtCcc2 bx33zCKxa6K5fCJ8 D0JfABEoihebjGOgkIyb CN2uSBJuhzylTWKxwA5e DQKiB5h5JcQwSiD8HDwg I7IiguG9CSEhmVMm TARkfOEGvC1bqfzsc5kr acpfOiHaICLwHJl9WJi9 AUFkbEnyHxWoBAA1LcR7 ZJZ4jZRoaL5ohKyv zfcamQ5cJco+MLN2yUEz rWUUNW8jAtojmDV+PHRk PBH7pOynYBswGNHlgW2w UZOkL9d3ReKpCxH8 ASmgO2IdozA0IKGurBMc CLXclXEQfO8mebbqa8sr zfdyDqLgVCPxFKt5QFa0 LWFsaWduOiBsZWZ0 QcP9VYV2qYNaiD5qqIdr slzrwA4xBmy+QmlydGgg TOR7DBc7H3SqVvb9QZVc vKxoSK0lvROzUXyw Ug4xwKsyuCokJJ7bTTSv jczro868PaYnc0whHLXu eNHyMGbfRTT0U60vo3X1 GSRjMVQjRNT8tWZ3 iU2yoAgezxtmcNAhmOng ddLqaGgfPSivOYbzV305 LNZegRlzJqYxMSx1E0Hk Swz2YTBnrHfeTY7h cDNoQIezLn6svRwelJvd DR3fGQGqyflhn064LdVs d5ekTYCzpTMaGNxwBDC7 E84rr7J9EZKiBKPq JOR4fBU7zB5zuRejekjy bGVmdDsgdmVydGljYWwt NWgfX643HOLosDplRmBr zPf2A2UdSqr9ZIWo nEeqNK3wnDZgXUraVs3u aNgdtPefXF0eSZAaumvq v745UtEeb9ebNQYtoZWn MIyrQTX4O35pf7J7 RTWlAMYwONX8fNR4lE9p bGlnbjogbGVmdDsgdmVy bQblQHuoRVpaA979KILt cDsnPlBhdGllbnQg CEljKKd7V3XvSfvcoDT+ KY16LSHhYC13kUMriXEn t3bvyJn0HoNyJVSnETV7 dNtgXHppk8WsRILu A70sqIBil7N1CDNduDjf qJIsShMtoRZ6fG5lIUsl kbwbd9rahtbbHwaot8ql vk12yU13M08eFKhq ZHRoPSIzMCUiIHZhbGln bo6fuF1cAd5+PGNvbCB3 wBH4uG3uBZTlThU5OMjh M482MlEavUVwRcny b9gdw6bvnLi5QqR0OVGc deXbnQgfRFH8b5EcEe09 L05rWLisPTEgUUBdGVHu DQFevJaeyu3adY8h Ii8+DBPtwVR6kRY2bK8d OdOaZhW6IGqzQ374DhSz tKFvUcivC27gI4IhlUV+ UJYcCjv2IDNofTgi UN4qbADsZMllSv1hKQF4 DwAwJiZbBXmhN8TkYTJo yiqevptjzWW1PSDsEBPi dD03Fg9ypDtkXHTs zQWQqN9fhhtpt5pinjlx IxEqNEOaNAh6SFh7BDNl sGhzBuCaKZC5JcU7JER8 fNWsqN7psXzflirx pP6oG7NxKNSjndwhOb59 mQ8aGeGwWoE8IYtnEuw+ W2IQYifyIY3US9eCAEre SzwvdGQ+PHRkIHN0 aEfoIQkrIKCohW3lCTYv G6k7IaMgPhF5QKhlS9Gw ULAsukcgRf83oQ7sWmNo AbR4VWfhJ1VnhoM7 RDQxaGYqCXmlILG3T88o g4L7KCAnMWYnEAY4sGL6 pX1zwLyjthywkOKmjCtc dmVydGljYWwtYWxp X214ACOlsViwLnTyJkL5 FdM1ReM7M9EeSnb1ARFw qZmaFL8jpKLkVFkbPx8s dDkqaJbzSC9lOGLn wmomHKCdnA7kUCOyeSCn mIztVC0iYOQfstoez397 AgTsNFM3TPGfnWYbF2Dv oT4dYnKxIEAwGGVv D1LigODtTHznA201JTav ToQ5PAIpifOmN9ZwLBHx bKjuXsY2q8D4Qw65IXCM ZWFyczwvdGQ+PHRk TWQ7lMeuSJfyDSQozM0s MQMdO8j9ZpEzGvA1DEav N1PpFQEwuyvvLd95eV7v XdMwUcW1MKweT0Lj paL9BIXjtZRbWKdnGQM1 Q96ux0Q7XSLmROHoVYM5 pFV8lW2suVtqccglkTAe dDsgdmVydGljYWwt CRqfS042CPPyeWhoSo9M UYJ2S8KxNws8QVCxpWcv NJ5ugBItTUerRb9hpRto eSlsUI9wDSLulphz KTPbxW4xZWJxlQRchGun FF6qOIXdfbzbq121BbZb XCI5PAFhhLOtH5JodX4e VpBmCBIiOTLvM3Ip hLOiKKnuT320GTxnNgV6 RJGawiPmX7SzZXTwnXdx TyT6w0H3Qw8DAZsfyPU+ MC84yc20R6YgYqpz Lmj7XZEnBIA3cAI7uN9q LTCdRYgye6Y0wFD1C6Jt tzSuys3kk8qeNMLeGOvt B50ioGLvy8B4VXFt rPR3BJXlhUwiJhIveJ32 Oyc+FCEltSplj7NlJogw l5ywu9svaJf7MgUsECTx fnGekUahUXQ2s4Ri Wp51N26bAVfeMTHxAWGo MZOeZRAitXaycf1iqN2i Ii8+SBZelNN6wPO5bG8s TzAmAzP7NTeaU640 YhRvkLGnGqcrz3ngu6iw kJb0HpJpCXVynySopVeq WMH4r0DhYm94B0PhnOuw b2VwJss3vz64dFKq h7P2cVN9Q5QcZUDrufeq gAKjjAboAS1pMCKcpwpl VJGguM1cNMNwI8n2VeSh BuS0KGhnY3FvxvQ2 XQTpaFOfDIUtgJPNpE8c srmxx0wkclteFdVxXHFz WXd3IHs0EXRluPfvVcIi AYS2WyN0ELM7lETy fW4qzNuxtgoovL6fFll+ AMc8k4fptWWvSM7nyNV8 LK00MK46vRQda9O2mOZ8 L6AeVELjvdeuqaju iPX6ZTLaVAMnhH95Ds8f uXvjMs5cKFLeWOT3AIGd cFTeP0AczV9dMxPfMGYg ZNUtV6QxyRJzZFvr Y582RPgiIzK7WMJzsdBc Z2TbRCCncDlhThP2q8F8 Ay6FOA71NV82IS96yAQl r5P8aAY1Z0ItUEIv undgrwsrzAB8PYCgXWAb hN61Il3pwQmhTw8lJXRh FYQ9QVBojWObJ8ZbxR2m GbImSTBoTNBgP9Rm jFUnCMboX314LReoFcJ8 NTKhjnNcN9VlMPIhfXut UoQ7q0B9Yv5DLm50HF00 FD39wJUbd8B4mSY1 J0YrHBWigelwqotmkDH4 VZQsGPMsuJ11Ee4ejGak Ya9gREFpMYI1YWIfmDLx J3UhwK1cNrFeQEKc JSTeP8CpgBCnUDwuW813 OXamMyL1MJZmqnRaO6Ii NSWmuTpsDdW1p6P8Ql4J NMuqfmc6N6GlBhdc dHI+XI63UYQfEB37aYFp pNOkd7uoxSg7NoSwDNFi YMS0oAqxBBngb6ShYXUt U91pjKShm3B5BYIw bGx (more content not included)... [facility] Coding Summary HTMLBase 64 LhoxthbwDCi6fYx+PGhl YWQ+AK7YUJBeN61thSZs pY4oZ1VTNKkYKaepHTOI BMbGQeSpkeSyON2qsOCq ZXJu IC8+OR0lPAOuXgiwpGAa u2W7pNF0K56kpx4bLVaf xIH8JKNyXnIbtrmoy1fb gPm9WStuSqqiApOf DXJxdS76KZS5hG47Vb42 lNNixLBxn4nmdMc9HmNn KPVgPGU5oWwvAGixm9Gl WNVdR21tzCGnv8Q5 IGNvbGxhcHNlOyBlbXB0 hE4uFFdnctyux2cwbnve Kjt0zu85hIXtf3Q8uGX5 N7YedzC1QPIqqZYy PodrqZPIqY0twgadk7av cbyvYrJeKAKtURk4OJf7 DFOveOpgBwFoEC82DMS8 UTMwdtPcB6MpMBRu lZglLzI6f0R8Wh7XG8GI AnrsB7WBPJCPLUmnkVT+ YG93mj35G3OfXnyfGih9 CTHpUUG2jRQ2sD7w VIGhOTrvo4O1yKN8C8Eo buSsxd5bh0zeMGHrUPgk M23drWZwj0Z8BICarTL0 EJGpqEaqCqVhnP15 Oyc+RQBxtEniu3CcDrta y5vbs0svwQa4YmetZENy wzUcwYuyJQQ1s5SgUa4x KGGcxGH0lMX5iO9o JqSwFfI5UTdyK292XdOx vQCiPqaeM38gV7SidQO+ AGYlGxi2ZICbiPevTV6w Y6DdKTRvxmltlJRx xBguOQ7jRDGwdcjpBBHt dS1xMNPfV7c9XzNiTnE6 GNocL6YmXVFxfnrpOj73 hY5nNbFrNcF6IWqr Z7AxaxL6BCAwyVQwXGoq DMB6N94wj6E7AGWhKMWr EHY3bQL2lK3hiUvsxqlu bGVmdDsgdmVydGlj OIoeBEbgC038BCIpvIyq PkNvZGluZyBEYXRlOiAg MDUvMTcvMjAyNDwvdGQ+ UOCzRID2lEywSAJn nBKwEGhlYx8czVnvnQfr HN2fSTGulqwpGEIcyP5e RHHrpERszBwuAG1oQNIn reqwp578CuSvKWK8 YIGnkTVjS9OxpX1yUkMj HOPvGLLgG0YceAQxHGwq P954XVerZfC1KKAptwDq Q9EnCWXrgUtvHtD2 r7W7Cl6Kl1BdvszuR3Me nFKaLrNmPddoLPb4D6Rz PjwvdHI+PE68ARNdWV43 EUq5HYE4tTysWCch YSOgI2MwfZ8kRgJnFCOl ZGRkOyc+PHRhYmxlIHdp ZHRoPScxMDAlJyBzdHls MN7qOk5xCHPxFVWz zUkinUNhCpHnh4jsSDGz XMhvHK0vsHhdM4DiiWT4 ZWWzc7e2Hl49P38cS8Ef dXA+EOEvlJE5eBE7 qD8kAnDgUnI9XVjlL401 LxNdeKMvZbwfe8ebg7xl sXc7RcX8HQMjooLijIdl UAP6y6XjPy94K16z IHdpZHRoPSIxNSUiIHZh oHperq7sxQ9nMi0+PGNv qAU1wXR1dR1tScYeVuH3 OUzjG044SaVubNEh Amaes1mkv4zvfQj3JiHm DOIaggSklUelXMG9j3Wk Gc23N1DdkBkjp5AhWzi9 ht89yUHbm6A4mDL4 R6LzUODgiaojaKVdkExw NU2lHSTqpvfkUPApiX1t QOOvW4n3MbPzKeH1XYvk M6JdwsE5YMHajRPn JKYymXLTwE6wodnsu1mz uoqgQgCeTATxAUq8SZu3 YLIsmIejRfAuYZN7EoU3 MLI5bAPkaH0fiFjt wdplqN9xNxv+UKQ3rDKc aYQVOP8aFcxsuFW+PHRk UMU4cQhcMOxwNIPodT4f ZRItP2h0WxXrBaE9 LJhcZ5JcsuV9HIXcvZYg IZPkuKCQvG9rirtsh5la wbuuZsFtZCAyCNs6WAk1 LWFsaWduOiBsZWZ0 IdZ1YNN5tULlvO3kmLym asyofC1sAer+QmlydGgg UIP7STl6W1CuLzj2QLNd cTkcAH8ljGXqMXvk Ll9jxBnriBvsTI0wNBOp bkkkr529VoDdp8zkOZYd eOZkJUabVMR4E97di2R0 QGVgZKBeTBK2hRE3 aX7dqJkcumjdeCAtaByc awTzzNngDZibNVowL507 LIWhwZshCfWgNCe5H1Zp Ybr2JFUfcKnqMO7y kHAaQHzeJk3jaEudnUag BW3lAXQindvhp320XqOx x7cfEGJmeYFhSSogDJM3 B75lv4K3WGVqISBk WQK6tHY9sZ6leAmkfuos bGVmdDsgdmVydGljYWwt KAgeN235TWOyjTqpMwYf fWj3K7DrIbk4QGNm uQofGB6teLYpCHepYg3e bTjxhAlyRG0kAXUvyqzm t941HmVkx8sdUKYdiULc GRgqZRH8Z34jy0F2 RFSoWKQnRYT9iIL0fB0t bGlnbjogbGVmdDsgdmVy rZcqNSrsSShkN591VNIr cDsnPlBhdGllbnQg WRzxSLr6G2UrFgqsnIW+ KY73UYRtUG40wXXkfLTq e8evzMy3MgJmOIVvSME2 wMedOTblg2KuFJQx A09tzFRes0Y7NODmmVrj rMZdElVpxHY4nX9tEUdl ryuca5szkcwnXawkf2wx zr97vO65M58vETie ZHRoPSIzMCUiIHZhbGln sx8lhZ9hCo5+PGNvbCB3 zZB2sO7xUKMrJsV9VLtv E489JsNgbCMlDfkr g5fgs7mkcPl6GfV7HZJk nsKojVhkMQE8y1VzHf68 A43yFGxeGUWnEUVcNIJv OXLsaPmwpb0sfT3d Ii8+QBItmGH7nVF8dO4n JbIvCmB6OEwzJ958NoAc pZBzUzdnO03eP5QraUZ+ DWXxNfr8DKLneUjl XK7htQWxOLbgYm9uYRV8 IdFcVjMaYGlqK4AwLLAf rymtujwtlYX8ZJYqPHJt bE19Gn3rvIbwLICw nDRNaI5yjalug4qtqrgd FgEiUTEzYMq5ELc0QAJm iYcoXdWaRVF0OaY8NFO7 oDTeqK8afZwiibsf rD4yW4AkLJQeqenxBf43 iL7xEyNtPyN5RPyoZat+ Y4YHHtbhAY0NL9aWLGcl SzwvdGQ+PHRkIHN0 dQhoNLkvCJOclX0yEUPl Z8c4SwJvHqG7VVbaW5El UMUcfxidHf25tO2eNzWs YzQ4AUaeJ6AbvyH1 KWRyfDFxRTnkAJN0Z49b s1O7LCDbBZWnBSR3nHA9 zQ8ebWjcnjymlNWlvCoi dmVydGljYWwtYWxp L130FVRmdAtwEbRzVrO7 QuD8KrO1I8LeOdy6WMFg rRvfPV6vsFVyKUloZb2d xKodvFqkLM5yUDUu lmxmPKGurT1iOIMfzMUp qIrbDG7cLNZdzaspz152 HeOkGZV4RXKxoBMbE0Pg pT4uSiSyLBFyQSMn O1KlfWKwLZmuS038VCgs ZnO5DAGionYhE5QzNARt hOlbZkU6b7S4Kn91MXEA ZWFyczwvdGQ+PHRk JFH0rCtzINizRNKtlJ6h LWUhO2u6IzIsXgJ4UVhn F3ChMOFommfbHz80dJ0d QlVjIsI7TBotQ6Yh rgN2QBAcmLKgJEesZOO1 H06gg2V1LDWeJNMaXKH8 fLF5xI6lzYqazfwqsKIk dDsgdmVydGljYWwt EJkoA685YMSbeZpxKp6V DBR1V3WgDqg4AFEkqQda DZ9haJVvRFsmOx9ksPgt sTizFN7bHHHwzodb VRWudL9cVVDquCGpuCjm UM9wGYKdjicab652UmKd PME3UDZgmVFtI4CooL2g XaBwIWSzCGPlH0It kUTdPFqiQ845WZxtSlQ7 QBKlpjUtA0MzFRQpcCfc YxT7f0I1Oy8LBNgapTZ+ RJ22yw71C7IbKmqf Stn9WPCrQQB5xKF6hT3x UNUxLGkof8V2oXL9E0Jo hpUqqe9sg1cwUEIwGZls W42nrWPri6V0EYQq aKL6FAVpcTxqCuVosO93 Oyc+MPAdwJlsy0IhQcao s4bjn8gugFk3BoYvXLFh yuKztTdaMEG8t0Zb Lu44M31hTBxpENXhZOGx TOAdGIOofBalyj3awP1b Ii8+FHDflGJ2jXW0hR0a DyEvGuM9STogK673 PbLbuUOeKhjau1fnl9fj sLo6IcMvXPOlcaAxgDlp EEB3d3IaAq56T5EcgOjw z1SxJas1ku17pAHf o0C3mTX5D1HxNTYjmagp xTAugNwtXO8xACXxhrzp SBHxpD8pSZUtE3q2EiIu IsV9OIsqS6KktuX0 OPXorPEmNLVeuXQXoR1l ctxrh4jferhcZwYgCJTb JDb0YOe2OZNzbHfmYbHi MAN0VmF2FHB2gQGu zG0agSuenhxkyR5tDqs+ QAl9u7cltNSxJV7oiLR7 PG86BT21oCNti0P4bEP0 U6DpDYHkvdqabniv qKV7PIDgBZOreS71Vg3q eCifVn5fCAWbLFZ4AOZl cGRiL5IhpW7xVaMnMFFc PKJlC3QnsPYdOAfq E347UHycHlF4SJBrzjZv L6WuOVYdjIwvSfA5i1B2 Ga8VIQ02NS74AO75hTSk h4T8uAF5T7ErCFJf fykjpeksyTJ0LDBrEMKa qA03Vh8bkIchAq3vAELl DST7XYHlpSZyE6DqjS2d WmKqGMNhXRTcJ2Sv kPWsXJziZ470JHsrJqC7 TKXuarAcI5KgZADrqCdo WbA7d5T5Nd1LNz47OT19 KR20vXSfh2X5bFR0 R6NtKZMibnfulefaeGD1 HERzSNVozI43Xq4qnOum Tq9oRZZyXEQ4CZCzeILw L7PftX5oEsFwNCOl LEThO2WokOOhHWkjD856 NXkdArY4CGJuewOdD7Gh DPOfbPcmWtM1t0U6Qd3N IVzwrsh8Q8SlEcjo dHI+HX96UTSwGL17iGSq dUCge5kcmWb2UbDePPNw FCE6qRhvDWyih7EqZZRh O47ojYSki8Y4PXAq bGx (more content not included)... [facility] Wound Care Noteon 09-16-2023 Wound Care Note [id number][facility] Records [id number] [facility] [id number] [facility] [id number] [facility]-09-2023 Wound Care Note [id number]#1 .00[facility] Coding Summaryon 09-07-2023 Coding Summary HTMLBase 64 XdgspeqoZYo5yYd+PGhl YWQ+WN8WYGVjX62yzDOn wJ8qA2QHRAgHDlrtRBYR KXvRSaFebkDnNG4hkUWf ZXJu IC8+UN5zYFSwLhlimIXj h2F6jLS5F49wkm7zCTte hPQ5PPOcKjOojvoej0vp iLa5BFooYemfEyHc RCRokX14YPV1oN59Ep24 yYLjiUCcm1nezSi2DwVn ROQcUYC6eFvzYCjad1Dr XVNbV93meNBfp6Z7 IGNvbGxhcHNlOyBlbXB0 bP4mUKarclwtg4gbuazd Dqc3im86nQUoi2K5cRY2 Z3VjacS2LKPuuLXo JpgafYGNuY9pbzthp3iy tghoSaHmWNRvTOt0NBy8 BZGlpEurOpNbGV92EMO4 FPAtomMlG8JlFYSy vTnxDmL9v1O9Jd0RH8YW CuznE8EZXPHSGEvwpGO+ IW14bc78I7BfNosqTpy0 LKJpWLY5rNF4cZ4w MAOhUNzds6S3nZR2O5Rj ivVegc9yd3cbOFTxEDlv A80bjWVby6P7XZGacUI7 OIBymWwmDdLikT65 Oyc+EJZcbAehj5SlGrfw b5qbh0uiaFr3IkrjZSWz ueKdmYztDTW9j4KvIf4i AAChdVB7yGB2sQ8x KoWhZhC2TFgmE815KdIt dGIzRrcyF71fO9XlmBX+ TBWlWml4PBMroWyzEH3y L0UdYXJnbehfbBFj eQimOJ2jLAOanoawAYCf rP3xNLCyV9l7AaOvJzM0 QXyvD1KcUHDrjnrqOs10 qT7cSiMsIiD6GUyk O6SfsqV5ZHJnaECdOQvu PMH0U29ud9C2JTQdSMNl QUM1pLN1dM7otBuvqpdc bGVmdDsgdmVydGlj ZDooIFjvI115DZGbkXlj PkNvZGluZyBEYXRlOiAg MDUvMDQvMjAyNDwvdGQ+ MUQfOXW2pInjOXXv zDFnMXrgFu5ahOqbbKaz NN0rKJYeshfhCXUfxO7o HHFcfHDopWstCT2dJHUm uppkt430VvPtIVZ4 XZSrrFZwB8YvjJ2hRlXf VOHxKTEaV0UguPDwNQhe W073WMbkQoO6LZKdgzPn M6PcHRGecNkzTqY0 t5H0Mv7Fk4WbkkovI5Km nXHkVpOqHiemXOl8A7Bx PjwvdHI+SF13PBBaLR78 TSw4YGV9hFxsVClg BMApW2DnuX4zAiKeTETf ZGRkOyc+PHRhYmxlIHdp ZHRoPScxMDAlJyBzdHls WZ1vZu1pVVUhUVWp uCzmdHHdHdZod7tiOVXu KTihQJ3exUmeM4MyrFK1 QCPbe4b2Ky60N45yB3Hb dXA+AYUgaDT9pPX4 qE5zThDcLfS8AGchH422 DpAdqZKgEbxrv3iir7vw dEd9YvF7OJWbawSrtSbz VDY5k5GzOx45B33t IHdpZHRoPSIxNSUiIHZh nXgrne7woF8xAg5+PGNv qXP9vJL5pS8gJpYbJnC7 CDlgR012PiPryOMj Ilzmj9woz0bqrPl9HnSr CLGfukRtzKkgGYE1d0Mx Wb19I6YquVhjx2WtQda0 uc25wZNos8I7tMU5 D3YlIRTlncywhUWqiFhl OI8lSAYzokixNCFgdU0i KJFjR0e4LcToQjM7PYmk C0GoxgX2OFGmtDBg KAXqdKVHcD0rdlggm6ay dajxAzVgGNLdQFg7ETw0 JUCdbIblOqMeBVS0JyD7 QMS9fPEmtD8lvNfz fisluE5wHby+YQR2qPGo rMKYCD8xNcuzlXH+PHRk XIK7zImeXMpgMXVgdY3x PYWrZ2j9KiXmYfX7 YHftF0DrvqP9CODanUJw RQWrsYXXjL5wefrsm0lv ifdxAsAjAVOxKYt7MZs9 LWFsaWduOiBsZWZ0 QzI1ENW6yBXpkA4qqFfd rdnovW4qZen+QmlydGgg ZYV2QSy8H6RwDnk5RXVi cNniTS9ujGUdJQxs Ip2xiHtktCrcNB4hFEAx bcwch110IpZsm9vsKWBt cTTvLQdzMFL7F53nk7C3 FZBxSHPrTMB2uYR9 uS4xsMmwctthqXIadIgs reAyfOrsCCcbGNjlG933 NHZodJwhXdQjDCj4P8Je Phw9AANutEgfEF1x gVFpAQcaQj8bbMpyjYwd QM6xYYFxydmga751GzMp v7hxMBCgbRIcFBnzOLD8 C25lv0I2ZXXcMWVy GSJ7wON7mY6ivTknjtea bGVmdDsgdmVydGljYWwt GPhiU046OSAzuOipShVa gCr2M4KtXqj4NBXv xFecSU9suQCeRRdyEi7f tUweyWzfMM8gYKPkkzml e865DcHyd2cvIITewTUw VZzvKVS9N24ts7V5 NUZfJBOoCRK3xKE6kT0j bGlnbjogbGVmdDsgdmVy zJkuXRndTRedE252OJIq cDsnPlBhdGllbnQg DGhqMRt0Y0HwBymuoNA+ VR68AOGcTX18qYOfsSNb l6uofSz4XvLoFACkQVM3 gOheNYnee8DcRISo F55lfAZwu2Q8EABaqFvq xRQuLlYzaBE9cQ6wUUro nchlf9rovdlgXldek4tt dp76cQ26I17tOUqc ZHRoPSIzMCUiIHZhbGln rq4myA2hEb3+PGNvbCB3 fMG7gW3pNGMlVdA3TQho M823YdWsqCCnMgdf r8tsf7hpqUi9SrT5OQEo bzHizYptXVV3p4XzRs22 T81bHTqnIOCjIKYwKPUu IFNaoPntjn0yjN3e Ii8+SAFifTJ1nFQ7bW7t TqXoQeI7UFdlE005RzCx fHXxHdzgY51lI5VobTG+ KMIgSki4EVLfvLut DV2dpXYzVUolCf5mDOX4 IcGmEnEyIRrfQ6ZsESAv wouyiqdioNV6MRFbWVBb qE63Iy7nxZjnFVXf gNMOiY1amalnp2nqisdr NiMcZENvSDi7YTp1LTNe fBoqCrQxCZA4PaG8JWN0 oNDrxO4bmGnlbnap nQ3iY1ApZTHcblcrGs94 aI1lQvQvNrU4KEtlPjh+ D5DLFnocRD9DP6dFYOkw SzwvdGQ+PHRkIHN0 rWosZEipEXYabQ0mGVRr Z0i2QnCfIrH2RMzzD2Vd CBHaklegHy47kY6eWuZk KrB4RFyuB8KclwO3 HEXzbEJxFAegHBW4Q87a c7D7JWJqLUEqMJQ2dZK9 zU7pjUlskmdaiDAjlHid dmVydGljYWwtYWxp Z826TJPeaZruBlDdOdQ2 UxR8XcS1P6GyNdg4QQZe uEygTE4cxUAoFSvcAb1g gNnucMprFK8xEZBi amdgLGAleM2rQGUkaKNo mKniZW9bBSMdsxuut815 XqQxPNK1XXHacVAeM8Bs zS2tXnYhOQTsSOFo H4FnoIIvEKnmX521RKbz FmV1JQFixfFvB4GoSATx aAvcRdH5e5M2Zl11ISKD ZWFyczwvdGQ+PHRk EHG9hUgfTYdvVRSifZ3i PMGmK0m5EwMdHgL3DEzt T4LdDLSeyolaRb93gK9s JnAiZgQ0NKewG2Hi pqR0KQOjpZIwPYcbCDS4 P44uk6D7WLJrVEDyKKB4 rQW2zQ7cnOskyhfkiTSx dDsgdmVydGljYWwt XEceA966EEUvqOifKq4R FGD4X6VoRks7XLRokZlg MG9pwOUzARowDa1mgXei zMoiAN6kILGphhhm ADXztN3fFASoaXLtiUpt BU7pKLGmrakpp881LjWz HRC1DEDdnMJyT4UeaY0k ZnScPWZsISAkH4Bm tGZhCSvgL455YGmtNbX6 FQUxezHuX9UcODNnaSlu JtH5s9T3Eh5ONHqneLQ+ VR76mm79Z8NuBchs Pjs7FNUvULO3sMM3mF0o NZUiWSbgo2H4lEY7T2Iz gfGfee5ge6cqUJClZBnl L85jzEEgp3D0IIRi rRL7MQKxxWrgTuFmkF50 Oyc+UHEiyWjok7JuGbll g1zoo6edtSh6BpQpDAQx mqRfbQoyLGK7i8Xl Pr31H16fKHluEVHsRUSa GOMbJPQlsHihah4ncH1e Ii8+NWZgiTL6zSB3nJ3o DbLaIdF6CNeaH020 PiHawPRgRgmam7puk5jm kGm1JrWzBKAxobJixYxm LTV3a8EyBb43K1NjuVls s2ZqBuj6ay89aJYf q8K9kKE5T2WhRKXjkewn eCSsmRygHY7mWGEoftso YNZinJ5vJCRxG8a4TdWt ZzW0EKwhH2DlkhL9 DOHxyCXdFNXxtQHCwM6l ixdsi4oyvgxpZdFaWILp IJe8HTm7ELPqcKbhUeJc XXT1XyN1OFY6rKKu aZ4joPjhsyelyE2yHmz+ KXf2x5fpeERhLZ7djPV1 BM47JN91uYXep0X3uOF4 R7MsOFFbqdotxhjk gLY4TSBhYYPfpA84Yt5u aJrcPi1pPFHcFTV2YUWx nDQnR1LwqQ8rEzBaCXPz DNQhI6OowWNaWZgv W444AKrmKuN6IHOlfmZj E1JpPAWyvNxxTqY9b9X2 Ms1RUS16XB32HK56hBNp v0B8sVS3U7CsPCXx ejpaynmnfBR5LYJbSIAh aA55Lg0ssKxoDt3kUSJh PBA9ZFFsdUDiX7CzwC3b DfHqPCHuVYSrA1Tf cYWgUNnlM332JDauCbM9 PJYgmnWtC2YvIFCleIrx BzQ5y9L2Wt6FLp38EW67 VK17tLNjz7D1dSF3 Q9UyLUTemyjpodszlEK8 QJYtHLGrcZ05En2ugCfh Rd3wLOTgSBH3JSWaoVLa B6HtnV8lXyRqHPHl UXCrJ0IqeVOmURzvU676 PUuxCnG5PTNchkWfM0Bd MNUeqKryQgJ9e5F1Xv1X INpqfne2M8EhByta dHI+CG35SUPtGN85eCDq dEBtk2ccmLi1GsUpDCIg ZVS3jMsnHMfes3SoBFJt J21msJVfi4Z1RWEr bGx (more content not included)... [facility] Coding Summaryon 09-03-2023 Coding Summary HTMLBase 64 KxbqycxzARs2uUl+PGhl YWQ+SV0OXNTkR12ydFGn rU7sZ4TCUIrOIwpxMXEW INaSVyCxisFhWE2zdROr ZXJu IC8+RE5kIYFtOawtsGEr d7H4bGC5O65ogj9qPXvx sIX5SDTwPhWgfpocb9yy pKl9NXgzHghfFwVx HQFchK97MPG9rZ96Jp55 mYYmgMKff8sqpRd3RcAa JDCeRQJ0xUohVYjzn7As BSWtT90yxBDpi2J5 IGNvbGxhcHNlOyBlbXB0 nP7xRWipoxoom7veadje Unp0lo05iDZam1B4lUV5 F8ExtnF8XHMtxHXr CjqoxNWYxJ8jtxbtv1sk bgkeUeNtDDTgAVe7NLd1 WAAwfWxySySnMS22OAI8 GEAtiyDrA6FnYCVa aCbrBpA0q2G9Mx7KY1BX NfvgG1PQCMVMIGtrmFK+ UO68qv68S7TsKecpUuh4 PRKfWZQ7xMA0zU2a EKBaDEwbe6W6mPQ0C3Mh krRbyd6bq5vuNLEgHMlo U79klGAmg5D6WXHypRD6 SYTljJxjZcNjtP04 Oyc+OPLoeXsxo3RgVuri i2xnk9gqsJs3PagoIPXh xkEocUrvRXJ2l8FcUk2x VQPodJZ6rSK9gL6p FlKuBuB1SDuhQ612TkEv cHLrVbqjH68eY1ApyXG+ OJLzSsg6RYLeuYccIY3e D6DsOYJxiozvpGVc zKmnEM3zOAGytdbbZUKv uO1aAUXrK3r9ZjUcWoA8 HKlcU9ZeFSShpnptYs22 cU6eMoWlFrC5LXnw E5QaxtY4SDOxxDXlBQhb BLF9D86rk9W1WZSlXCAo QPN3hEQ8hG8xrHbiabme bGVmdDsgdmVydGlj MWddAAqvM790ZUFxiDet PkNvZGluZyBEYXRlOiAg MDQvMzAvMjAyNDwvdGQ+ YCQsTWE0vGfwTIJx fMIgKZzlRp3bdXbybVut UG4dOOSmgsesVONmrW4k HEJphFMtgPyyDL6zQPWu lqpcg527MoJdNHP5 XKGciBTnP2UkcK9cLuIt HSWkCQHsX4PocTRoWKrq E364MIroXlT7QLVdeyVk B6ZkLWTmzRekJmJ6 m0C2Cr5Xz9UiosoyO2Bt xBKdDdDgPddvZMv5M5Yv PjwvdHI+PN51QTYoEN28 SIz5TKG0zXyhWHhj FNFwL4XenM5oXdRfBZHs ZGRkOyc+PHRhYmxlIHdp ZHRoPScxMDAlJyBzdHls AK7fHy8lOZPcTUZo sUnqiWKdOdYgk3skUBSg ZUsmMP7boPpkJ5BlwSX1 CXCiz8m4Me42N25zU3Dk dXA+OJHwuUY7pQX6 cI4vFsGdJuZ1WVsnB715 NkVwvASqBdpfy0gse3jt jSk8EtE5DSRmpyTyjRot JEC9q5WxJt16H63a IHdpZHRoPSIxNSUiIHZh aCvmkx8paO8xMi9+PGNv xND9lWM0gD1rTzEaTkE3 ZNniV612ClZjyMUv Qekdc5nyr3yviSa6HkNb DYWtekWclBnqWVT3o8Dp Vf90E3HoqHeri0BxOaz1 fj53yOGlo5T4hNI9 H8PyXHLtdxboaTPmiSjo FZ4rIVTreoxpUTAdfY7k YRSkM7m0QpHxGhG3EYsx G5FibyJ1PRYyuUOt MPIrlARMkD8uulrro2qo giieHrNtZOUrHBp4XTy5 GHVvjKffMwTvRNH8EmQ7 WXH0xBHasI8hcUal nlwzsJ1hPxu+FOQ7uPZo fKRTOI9dYgqdpJX+PHRk UON4rZcoDSktSKJdtT1y ZOHjU1i7IeQrJrF6 WAbmO7WayjA7TLYljEMh UNJdrOJKrQ2urtgur8xe eosiWqNlNODaOQh3HUl2 LWFsaWduOiBsZWZ0 YvX9RNS7kNSypZ0cvTsb hmdizV2fGtm+QmlydGgg PBK5ESu1T8UjMea9FUAi qHknVI0szCJtXMhv Yf1xfEaelRulGV9mRYIp kmool840VwWvn1hwUHHx xQHhCYumUIW6M25kg0S8 XDWsDUVgYNP9wEE5 rA7ypJftapwneHRalCjc kdPyaIvnDSmqUTzdD076 SEBrfIxcVcLpBMr3Q9In Hzi7OHUmnRqqGE0z zTZhWAwhGe4eiLweaQbc KE5tVRRhgsjot298YmLw e1gdIXUkqYKqVPihUBN2 R90qv1O2GZAyWGPw BSY6mSG2sE8ocDznirqu bGVmdDsgdmVydGljYWwt QQlqI436FXOzhTgxWlJv qId0Z5KyMfl0ZHDw fEqaRY1ghSBdSPszEq2i mJyvsChaVV3fYKKgtdbh y817YaXyj1fdRJBuuUMs DHdxEAE5E56tb9H9 RLSwPPDwTEF8nNI3gI6c bGlnbjogbGVmdDsgdmVy pZjkQIfqQDbxA232WTXk cDsnPlBhdGllbnQg LVzoNVf6M5HmEvsnaDW+ BX10IUPqBY21jMDliVCc o5ahgZo7FxBbGPVpYVI1 sYweRJrlm7IrHIVr B76goXYev7F6ESTklYmg tMIwGgTzpBD9zT7yPOpo tqgra8yctjxoFjryu3sy zv80uO96J23vWYvr ZHRoPSIzMCUiIHZhbGln xq9rpV3mXj4+PGNvbCB3 bHZ9rG9tDWBjQlY6LYim A685UyHcmESqJupw s0krh9bfqMr1RqK3HZJb cqYquIjyRTO2q1UwOc90 L82aHZadVZLyPFXxCKUb YAAldFslxq1zkK9r Ii8+HRVpsID8vDJ2iC1p FbBmTwZ6CLpwJ943FdXg kAWqRkytX46lY1ZjsKE+ VOAfTdt6YHVfrZnt AH7ujZTuZFbtAc8yXSP3 ZfJgKzZrQZdfX0YsUBBd eulpwdtheJX9YCPsGJWu bW77Zs4wdXasOQNw tRUOdW7rxkhmj9sxmfmt HrLoQJAvUGr1HMd0NHNi eQfbLfOzAIT2NcG3ZGG2 mJTatF3jpVeutuog zD3qA7MaGLKhssoeYn28 oV9mJqXgKjB5AClrCzf+ D6ZBHttrDH2NC4xSNJki SzwvdGQ+PHRkIHN0 oJomDLnvKNHqlA3vZTZk H2h9XqLlQtH9MXauB4Lf VPUxgauaYc21mT9dMuGz FfG2XQdiA3MswjQ8 AGGocQAbAYgfWJH4N32c u4T7CTGhMDKaHDP9fJV7 lX0ikXisolcooJLvyQwi dmVydGljYWwtYWxp P987DZZzsKbsGyMkRwE9 DmR9VoS4L9BuOsp0KQGd jAmzVQ0eaUArUElnVc3g wOpjhHfoVJ8sYXKu cgklDXKvaA2gLNGpyYSl xMtmWN0rIQFieheok851 RdUnJBG2NWGxhSGbP9Hv kN5aGdJmOHLbGKPq D1FhbFIqSMzcA011RRqb TmS7DBOsmnCtY0FcGQMk vZtkRjI8u9L5Ko70YRXK ZWFyczwvdGQ+PHRk HPK4cDgwCOymTFBkkX6v ONFpW3t9XlTzKjB2QJhc F4DyLBNrodqfTi43pV2o OqEgXpQ0RYpyV0Xi fhB4PXHgyYDmCRwlUHB6 M63hq8I8KVNdZWKkIUT2 cXE6mW0hfCzezfoscEKu dDsgdmVydGljYWwt IQsyV186QHWxfYyxWc2A WFI4W2NcOvi3CJYhuDrs TL3kcHIoNSwiAs1kbVou vOolNF3vGPAfrjva KSCoeU4bQLVghEIrpBpt GO1eIBVopaewm745GqYv CNC8VFYxaEVaS2ZjjU9q CeYvYIHuCFQpN9Tl aLSwRIolT806DCdzZeK3 PLYztgVaR7RaFBYgjOpq QgV8u5I2Lm6XZEvcrRU+ AD89la66P4UoRogs Tov1JBUuAFI6jJL9kJ6c ZMYeGSgkz2K9vJU3A7Ps ruRyli3wc0hfIJHtDBtt F09hjMJyv6N4QIJa oTC0KVWjzYkoFnIrlJ18 Oyc+ITTsqTggd5NaMkrq s9ubs3rwvNm1HlUoTTCd ilAdsTuyZCC7a4Od En75P84mEWheGBWeWRDv ILRqMWGraPoixc1kbS9x Ii8+ILHalWX5kLO7qD6o WfLhSmP5CVdmI305 NdSlaKLiVvkfc6vra6tb qAw1ToTyBHHepoZwcQcc MIB2l0JvKt12E0UaxYcu e5ZwBfj4qd03wDFr d4W1uZB9H3ViHGUxmwgv fMMpeIanWD6vHPLnelfk CQNxrW5zXZAvG2k3ZxTq DgH6USpnQ5WfxaS4 IYPbeETqDZRvnHOUiQ5c kjtou6ueqjilOzTlXFQv MNw4XCw2WXSvfSjwSgId ZIP2XuN8JCP4zVGl mI1tgAuieweylE0yFzw+ GDw4a3wnsBLfPF3xlRH3 ET93AY29kONdy8U8iOT8 O9VbBFSrdafubats rIV7USUiEYCcrU24Pu6c cYktNs5iRGCxDKM6PNRo tHTnL2RsrA1wGtGyAEIj PEMcN5FceGJvSOlx K694TCrwRuH4NHNeskBf L2OjYHArsUfbVhR1h1C3 Lh5DAW86NL33ZR01gBSu j8Z2lEY3Q7DcVINv nznzggrvaMG5APGnOWAd cT79Qj4euBtpQm4xVCQx QKH0LRGrfMQwL7EunQ4w IzNdHOGnESDxB8Mb vHXeCHowS554EEmzPgQ0 KSVgeoXwJ7RxFVCvxZgc OvT8h1D7Ji4FWb89FD94 BU11iSXmz9D8uUC5 Q6UoZRRwwhreniignEE3 TESdTXTinV91Qc9rtTsl No3bKRObJXQ5EOYhhTKb S5HyoW1xUsMjWDFs BSPsI8FksKAhIRgdH249 CMagMjK2ZRWxxzCdC4Gj RFYjaTbpUvV7g2Y5Ha6U EZblekb5U7FrBetm dHI+YZ98RQKhWG52jTDe tLFpq5hsaFj1JdZhQRWx PFE0tPjjUZaip6WmMQEf M12ulLZtj3M5EEDj bGx (more content not included)... [facility] Wound Care Noteon 09-02-2023 Wound Care Note [id number]#1. 00OTGTIFF [facility] Coding Summaryon 08-30-2023 [facility] HbrkgnbfDKz8wGw+PGhl YWQ+KB1ECCTvE99pwWFk wR4rK5KGDTfAByynEKLR WMjFKaPswrDpUM3tmVDw ZXJu IC8+KT5gTIIwZpxyzXKj y0D8uLI8X22wtu2eLQry bXP9QSKbKpDtsqgkm3xm sMc7PDxvHzgnFyVl EVEdzY73ILS0bB21Ud40 sHWhyFUra5mvsBu4HuBo QQLbLBS2aKhpZTxux6Vi MVMvE40ebARqk9N8 IGNvbGxhcHNlOyBlbXB0 oV4eRQwkgkaiq7hvuirl Lba6cg31gTDrl0N5bPL6 D8ZkjdJ2NKJgaZXp TzmxjFNZuQ3drgpgy2tj nabmEiKbLZRdWCs0HLz1 WJBftPqbQbApGW70JMF1 AAJjxrNxV5WoBRHp kSilQpD8h1G6Sh0SW8SC NiqoF3YTKYTPHLzrgGP+ VM39ld77O7UkIuybWds3 EWXxAVV1sVW4gK2l RKUqURzso1K4tKR0Q6Jk esHrtg7li9bcURVcFOnf D30ltVQdd3C9LPMquKA8 PKQonCrzTyWdwO78 Oyc+SZQmiHglw5PaEvfl y2nup4ckwGo8YzcoBYGd svAelOwhKCJ6z9LjYo8b KTRwvSS3vTR8aR9g YiXhSpM7EQwmP770GrTt tBYxEhzsX09kL6CudQJ+ RARaHwm8BLPyvDkaPB9j T2RvLWYzpespqAJi oLbvBK9sBIDqqzckYBAh uA7tWCHjH0r3SdGxElP2 YLvjH9WzKWAvrtycDy76 lD5iTnBrYyM7FMje G2TataH0HEYwpRPvARsk YTW3E12tl3Z4FQKcIZZr QPR6vIS2qW4siZrtgsuk bGVmdDsgdmVydGlj ZUxyFAedC415VVFkdBad PkNvZGluZyBEYXRlOiAg MDQvMjYvMjAyNDwvdGQ+ CSWePOG1vCcyNBFx kWYbRUeiRw1wxMjgtVxb TW9sBGXsaeeeEZVusE6s AGZqyERncSllEY8rGMPv hsvtk533NdIfOYZ8 HNVndBKpR3QjkH3lQlMw CCXkKSBrO3NkeVWgFGnl A159VCltWmO9YPSjypHl L5IwHJHjbEpmGbE7 h2T3Du1Tm6RahtuzC3Vm bWSlJfPiPjzkDTs5A4Wa PjwvdHI+DW33YFPbME47 COe0RFP5bFsiTMis WEIjD6IruI1rKhFmAAVb ZGRkOyc+PHRhYmxlIHdp ZHRoPScxMDAlJyBzdHls IE1nSs0wKZBvSIWc dNtohHQiIvAnx7soCQSh UEetFD3xmHyuO4UasUW6 XEEnw2a9Uf52D92oX6Sw dXA+VWOzsDF1gIZ4 oS8mXxGnRsR4CFsrC037 XmZmyMEpYzotg6nmt8hq xZm0SwW6UHWdmgOlrKwy EVK7i8DrNe68W80l IHdpZHRoPSIxNSUiIHZh yKlojy1vwJ6cRv3+PGNv sPB8gUL1pM4aHjHbKhR2 XPwhM886VfQpoWTn Pxwgz6juz1nrwUu2UgFe ORNfqgFivYcqYQO8j7Dj Uh36D5VxhRmcu8UjEce2 vu60hSGsx9X8oNB4 R6UvJJAalojbfFDaiKtw TO8sRFSftyhxMGCnaW3u WRSxV2c0GnBsJtL4MAff T3WhuuP4EDOlwNLa ZANniTDItY6skzkud3ks iophPsPvZGXwNCz2SDf2 XXDbsSsgWkIzEDA4AtI7 GTA2gOWiwZ4jjWzh knlevC5gMbc+QRA3eRAy rNSFLO5yTlgtrJP+PHRk SYQ9rEneFShoWIDjwP9s LOUkK0i5YzYmSuA4 ATutA7NldbB8OMKgrQNs ARJjtSZXrW8peligu5gs ywivJeJaQCYhXFa0LTe3 LWFsaWduOiBsZWZ0 CfN1DBD4dORffM2sfFjc igmsiK7cNly+QmlydGgg JMD3FGw9M0NtSsq2XNHs jJodWA3qoZTrIEnz Gu7zdYogsYezLG4yGHIy pjlay876OeKpk1lzUVFi sEFwCMeeCOK0V65os3Q9 PHNeMLVvJWV6dBB7 oU4dkRkwgqadnVRvdOtg acBwrLhsFEncLOkhD761 GMNecTvzBqFzDRk1V7Eb Yar9AOYphZutUA9k zGMaQNdcYx7fsCmcwNhv DS3lKUTyqyjzr959OlOp k4lmDRPmnAAhYJedQRR4 E61wy6W3PEVwVTWx QXP1qSP8vY8yaVfizbnl bGVmdDsgdmVydGljYWwt RIhyK116LKAnnTwwAzHr xDb1G1QmUhc7ZZAi vNduIO6csIOjNLoyTb5o xLzrlKfkPP7tNPZnsted l492WjHew3tqEPIqpKVc GWnsCOH0B99nn4L7 CWWgWHQsIHF6fFL7mD5o bGlnbjogbGVmdDsgdmVy gPgeXKskNVrtM490ACOi cDsnPlBhdGllbnQg ZDbaIIb4C5RcYrchsLZ+ GS60HYFaVU46nLOivAQj w6olpXf0LoBrMNTwMSW1 jQymRHljg6ZoEAWo F30fhCHhb1V2NEZudZme oAGaHrGuwEI8kB9nGFby wzmnn1ogmxdvVvkbk3jj kp65tG10D33qGIrf ZHRoPSIzMCUiIHZhbGln ix7udI6nTc0+PGNvbCB3 uRC0eW2nEJCsOzM7VEkg N454BnWekAOkNofk k3lfe8zczQb5XoZ2MFVl gxEinXwmUKC0j4TaZi38 O02vEUnvSARvNUFyNHFs HHQizPtjbx7ibT4b Ii8+LDFhzKC8vMD0rV9h UuEeDqJ5TSbxR340OlEc kZYhCzhbX03rH7EmcUZ+ QLQhVkg0CEGajIfm IE8ngFHpEYdhSg1eKEL1 FhQnCkCmIKvbG7BgSTAs mqkjdydphDG2QEDjRWPt kT78Wu6lmTclQGSc hEJJfH3lpufuv0lsbnqg IgNiVDVrNGg7TJx7DRSy dUrqWcOuRLW9VmW4NKC9 eQYeaD2spGueivne mO9gS5NgMRWlketdGs51 yL2rPeGtFnJ1JXwmEra+ G9ZLDzatSM0ME2cNJOdh SzwvdGQ+PHRkIHN0 yUcoUOffZUHexV9rJAQe R2g8RjFePaC6MAieV1Rh ERPrkttjSt11eU1oKrYn RwM2BFdiV3NofhX6 TIRscAAzPFpoHML5O77k m0X5AIVsWYIvWXB5bGO9 bI1kdTldpieraBQupSof dmVydGljYWwtYWxp R114USOlwEyhDpMqTaJ8 FlC3DdO0R4KpKrd0JTZz aPccVU2qpIDtARjxWk4n rJaeyKheXD9cKETe jvnoFIScbG7sDSHelHLl nVmeJH2oFXYfksbqn238 XeViWDH7FMTnjQIuZ6Zv eP6tDcUzJFBvNTBp R7NbaNXiIQynE975LIeh KmV3XYVftyGwO2WpAGUh uPsqNeI0j3X6Sa66LFHT ZWFyczwvdGQ+PHRk QQE0eSkhUOutBJVdaA4h CMHwL6u0CePxByE5GKtt Q0YzIQQfhfitLa61bZ5g WpMiUmR0NOawW9Vn fvG4HJHrsFIoQYktFDW5 A55yx0V5HXBjMZPpKMB3 uTY3bR0irIlpyahlmIYb dDsgdmVydGljYWwt CEsmE135KLHslFsqGd2D PBF8L0HfCrg6ZMGdeMsj BU0ajVUhJQinHy0qwBrp hAyqRU6tLLGclxtr UFTgrD7aCBIvhXHipJli IP4hGIOnzxajb151AqZy FTF3QLTmqXDgL7WrmJ2a QzUrZHVzMJLdY9Sj fOJoHHuvQ049VQznXxP8 CDUfedTjO7TjJTOnpLhp EqG3n0I0Xj7BQPhsgCD+ NC75yf56V9NuOvak Cen5TPKyYDB6gIN1xF6i INLeROrfe8Y0rFX2W3Xe hnGtpq9wh5aoRYPpMToo B95gxKJim3K4YLSi nRJ4LZQykJpeWgVmsL02 Oyc+KLPjrUtyf2PnJiin o8exy9yrsUf0TyWtZWTk ekFurWagWRJ1w9Ry Uo22J42oKLwpJLPtHKJf OBYuRVXjnIhycl7rvV1i Ii8+WVAwtYG6iCU4kX9c HsVpWbD0AMfiM128 EjJehGArFdstk4nch5pr rIt7KgOvLSPwvlUitShp VLR3p6WbGl88Z0KxvMvd f5FqNqk3kf74tFOg l6W4cQK6J0VbFJOfeuxt iAEdvYzoBV8dWUXjramx YWUbbJ1nWKCgP1g1XrVt EtE0QWksZ5TsjjF8 RSPryLSuJERjeJIUaN7v ammmv0sxlrreLfAdIAOr MAs4ZFr6PSQncCleHlRb JNH0UeN3OIY9kUPa qK6teStngrbfyT8lWih+ UOw0w2eclHZtWW2ypZD3 VL02JH89jBZkt1G3cPU8 H7VnJRZbqerzqoxk hSP5YFSuRSUhyD31Ee1k gIbjJp8rJNCyAVT5GQRo iKCiY2JvuB7pIiDgCGGd DRRzN3QcgHKaDVto D726ZNybGlO3CODdpyPs U5RnALCnpNtqNtG2l5O2 [id number] v9Q4qGN1S3VnSYOm vwbbsqmgpJV2XTZiZKMu aA39Xp3ryKhhEr3sAKMl MXK3IJGwlRIjM9NeiL9i MdNgAOCcSAZeS6No wTNmRYjkU856ZTcxVlE0 JUMlksYzW6TxXCMtmGji QjJ7d6G6Gg8QKz53LN02 TM47hIOis1G5uMY0 V4UlTJUeudyaexwbkZN7 OXEhUJXcfJ03As2psUpq Uh7oJEFtPEY5WFIoiAWm O0RrsD1vJgOoDOKo LFDxM2PazAFbDAcqA463 ZFmvLtF7NQBvslYsC7Kw MYHljYggPmF7u4M0Aq5F RLzodny5R9RvCmow dHI+YF30ZICeYJ82bCJr tQYsf8zszWv3HeJyBRPi LDA8zEbiMEpfm2XkUOPt G62mpERlf9X8JFXr bGx (more content not included)... [facility] Coding Summary HTMLBase 64 LocdavveNXu1nMa+PGhl YWQ+US7NCFCoY06wqKOj yE7yE1GFCCfQKqaeAUBI ZHjOYlZpseTkRC3btEEj ZXJu IC8+IY9lNGVaKbgeyZUy l2F5lIQ2K23qus1pUFoq cEP9NXQmFsFjfprhw0su kUq8ZWoqIflnCfNo COHqwJ34BWJ1bB86Qq34 rPZlvROzo3yzmHs8BdOt HNSeMKD7oYcqAHxjl9Ly TVGjG39eiGWqi4T6 IGNvbGxhcHNlOyBlbXB0 yI5bYJlrrvmkx4aqdffy Hdl9pj93iDFst4Q3kUE7 U3HcuzI7LCWoaMOk ZrkkwNQHcB3rdorxc8bk ibphEbXqAJTyHKs2KQk3 ZYYksYwlMnWpDP42ZOX7 DIDoylKgZ3BgBILa qVccElZ5u4Q3Yk0IS7GJ FoueQ7WNRSWDTDfenKC+ KD40ei90J1ZhCcnwZxe9 DJYqKVO3yHY5jN2y PHRxVUtqu7O2gMA5G4Mm neZdls5zx6soBWQsMShw Z03eoQOwj6P5QMXweLM9 MRKcmGmeTaCbsI48 Oyc+DAJpmFwmz6IaHluh v3vyd4ngxXj6YytgXFMa moMjyIyqUOE8t6XaNc7z SWEqfHR9aSY3uW9m OlPjAeU8UEpzD720OnLi yEDbVyljM65oB9ZqnIG+ UBKkLkk6ELPtqXskRP7n P8AmCXMdkwfftUEm uFaiXT6fWVHdqrgaEFAw kC7rFBGrP2x9WpHzQtS9 BIsdA6JwNFCkrmpwVe18 nQ8aSnVaEwR2NRdc I0YhrxP9BVRwhOLrQGyu ATE6K10jr0Z2UWLrSTNv GHC9qKR1cS4uqTqtdzeg bGVmdDsgdmVydGlj WBcjWTplW283IZHxrSmp PkNvZGluZyBEYXRlOiAg MDQvMjYvMjAyNDwvdGQ+ TBUfZKC6cSyqBZPj kFDjHQleCc2bnHgrbRcu WT1zGMRacdypSUSjkW3h MLIfwVSfrUciTG2rPOYo tmzjf751KhQvOKM6 YYCusWGcA3MkpG9aSfUo XVJjYSCwP5GuuNZtQYfp D844LMjaGoW4ZYUnjoLi Q8FbJYGarWotOaI9 w8J7Lg8Ok0QbnqdrQ1Ct yUKjXlRmXucxFLo4B7Jp PjwvdHI+FQ86JMKrTK87 RYd1BQD0qAslBZha FHHxJ9UasE8pHiTnDVDf ZGRkOyc+PHRhYmxlIHdp ZHRoPScxMDAlJyBzdHls AV5hSn3iKOYfNADv zChncUNiZsDha1byTRIv HFcaKQ2knQpaY2TdpPY1 KWMvi5w3Ev19C03zF5Wz dXA+PMUqmLZ8yPI5 qE9kXuVcCxW6QBzqE514 WrClwMVfLykei2flz8na wYx2DeC5CYEpinQttHya ZXR7s4QqWz78U89c IHdpZHRoPSIxNSUiIHZh mWvibu7stO8wSn1+PGNv uRK7aSJ4yF5qHiIqMxG6 TSvbQ075PjEalPZk Muhrh4sac6wjeCd6EqAi UEQqtmXpyDsjINJ1k0Gd An02Q2GhrWvwo1VwAcu4 jx61iIDzm3X7eGK2 W2JeYKDbtwswqSLecPou IR3cUGDnrukxXHEvgK1v THSuR2r4RtPvFxV3FAve I4FlcdA7RVFvqXXo MABnmCXZvU3lspmug2ij ydwnXyJzMMBvUFj3UBg9 HNVcuUhmFlMhJCU1ZyZ8 UYK5dHSxfA7rtWyo mxhkxE4bUel+HMG3cUXw gBAEOB2xWhxjbPZ+PHRk KLS1jAvgDDxnBLWrbK8f PIHvG4h6PjHaQkN1 HNhsZ0HlirD0INAplRWn XYXwrJVQpY0ziusij1nf murvFaHvCRUwNSz9NKd7 LWFsaWduOiBsZWZ0 OfC4LKI9rYNniI7bnSqy eueirE6bIjc+QmlydGgg SEP2SRn5M7IuImz8XJPy eTxzFK4piTTgLRqc Xi8jeNycrYprVY5eYJNa aivvc058CdYae5wdWHKt zDVlFRwiIOM5K85xa8O7 ODFwQJOiMCD1gUZ5 gY9kjKcakhpbyWSzcIqs hhEdeHjcQJcmGCotP911 NVYeqWhdEwZqEFa8N5Li Yjv6XJAqiSgvWO7w kOYgVRjhGh3kgZwuiPdh HA9uNLIvpkatk206WbMc k2fnSVKxfEKjFTpaQCV0 O34ec0S8DGKiUTNi QKK0eBK5bN4zsEoqbiik bGVmdDsgdmVydGljYWwt XDbjG938EXGkwKqePuYo tGo3N0OlEry9KEDq cNiuSR8vdSUtLPdgOv1r tFxnsEtwJT1zICJogoej d081EkCkd3rhSZSrsLRs IItdEAS3U12nj9X5 HRIrNASnNGQ6kYK6bX4p bGlnbjogbGVmdDsgdmVy mSowQAjxLIoeS646SRFe cDsnPlBhdGllbnQg UYldPUe6L8ZgIbabrWD+ WS05EHGjCX75bYDshTMb o0hunNl3RwTxUNRsVSP1 jRxlHBmrr7SpFNHi Y42eiJMpx1L4FFMtgStz pQCpRdWicFU6xX2wPWdr fkmij6loltsyJfaur2su ub23lE57N65sRFyt ZHRoPSIzMCUiIHZhbGln qo3vrN7uVw1+PGNvbCB3 vEK1yP9sHEVdZjT6MLoy R152MlRdkZPpDmsh f1qxc8woqSk2SxR5QTOe lkJekGnxTYM3u6NmCa77 L03pMZxnWOMsRXHyWUAm INDmeXkdly3gqW9h Ii8+BVAcbIC4cLW5xJ9b RhXyMeB7SHmjN201IcDl kTMjHmyeR43rE0GiwZW+ AUHiFwd8NQHejBip YJ7gvSUqZLvrDe1kESZ5 ReOwPeDdXQkkN9BuKRFw vamoigkhtMY2XAJjWNJm aL75Ku6heEylRXDe yWXXzG4klivru8rpdwtx XdFxJAYcVCe4ZMj5OKAj nChuSoIpQCZ8FcX0DJU8 sXCksD4zyHwastoe oM1bU9CaCTNwimfiSx90 cH3eUaRcPpJ1FSprWtj+ N3EZZapzJL2FU3sGBEoi SzwvdGQ+PHRkIHN0 pGvkYNslKAOcjM3eMPEh B2h7CrIgChM4QTqcB7Lp XCPncagwUk97xG4tRkPw AhG9MCxmQ2YqsuI2 CWIpuUHwKOqcLXF5X87g u8X0QGEgWCMxWMT4uAH3 sN1mbJnwcjoiuEYhsGeb dmVydGljYWwtYWxp I502YBFnzXtcBcWmDrN5 TjK4PzT6T7DmRpv3ZWKk xAhfAK4snNQwVUfaEp6b fBcwjQlhTF5kFLZw wtuyFQHmbB0qGAQajGTx oFduMJ3xQRIvqobjx504 UjMaVPK1NZPgmDFlJ8Kd rX9uIjRiBFIbLFZz E6KowUJcKDwfF893LGwu DdS5OFZyaaCeB7MxPZQk zJukYiE9d2P2Pn24QXOS ZWFyczwvdGQ+PHRk WDP5wWyxFDfeYJRnsF1p RCShF3c9LtAgKwH6RTfu Y0IrIUEsojtdYq35kR9m FsLtLnV0BQliB7Uc njC9MWYwoVUjGDsrBZQ7 S63lk6D2NUIcIOLtBEQ9 pPB6xL5kdBoepgpsqGFy dDsgdmVydGljYWwt EDmgA374NQFjpIqtRv9M ICF4O8XsXoe0JGFpoJxu RC2wuMGoXDqjSb8clSdp bTzpMY3nNQWcofnl QAKkaY6yAVYhhHFweFoc RP9aNZXywcykf378NjZd BWX8SLHgfCPhY1IbbM0t ZaGiGPJhZWSsW5Oh yVJmSBjcS984VXozLqR0 TBNeioQbE3BgISImeOuy DzQ7i4S4Gr4DSZsldRC+ WH24lb98C2YsGifi Pkw5SEEqFLB7sPF9bK9h MJNjHJjht2T7hIA9Z3Bv uqVtef2wz9wcVMQqHSvu L85zrTMdg6Z8BEWb fJS4AKScxMhtZcIypL60 Oyc+HYBsgXqqc1KpHlxl o4rdu5jsjSz3NtOePFGk lhGpeZhsCPB2o2Oo Vz06S40bQSotQIGoGZKf ERNwRABadEllgz6jvN7s Ii8+VRMcyPW0aTY2gR4b MxOrIyM9DKjzV098 ZrAdhSTuKxmie2tct8ha bKu4RaSwIEEcymZaySgf GKR4o1AgAy62L6TjiUle s4LcKbl7uq38jNNu y9J4gBE4J6MeKJEmswfj bJJykCvrMO1uUMTevszc SEBtfV7cECFvI3g0VsHu UdY3GHdeS9JbowL6 ECDgxYQsHCFdiDFStK6l kxmnu1ssgwgaOrLwPBVv EQr8WCw7NYGrqXfgTsOy XFZ6AlY9GEY3jAIp hN3yoWtcvtvpwN0bCov+ UCn5c7eqqAHmDW5cyVA9 DG64EI82uGMlt0R2nGX7 S0YwKFEfnlwxmzmr oCC4PRVgCSZlwB80Gq5d uAjiRc6gSHHqANN7FWIp rYMsE8AwkK6pXdOdWKQr XKUeV5KjoNWrZCul G182HTrpWlL2HFMnvcYd Z8PqBZQfpZfiNrH9c5V3 Nv9ANF00TD29CF31zCGf d5L1eQX2D9FgFWIb fortfxlnmVB5YMYuOUBh rI84Gb5diAoxYz2zRFNk SAK7YCQjcGUnP2EdvB4q RuRxHKJnDVKhZ7Kk lFTmMRddA396GDxjKbL2 QIWhkyLoR2IdIYTriAef HiO7b2D2Ud8WMz11RB38 HI29bWEgk3W4mYL6 P8XoIKOxwvsfshijqLH9 VXEjWYKxvX97Jj4weCdz Ib2aFKUsMIZ0FPImwVBz U3PwqD4dExApKVWy ICUqN0QtcEKzICymE467 HRkfSoA1PVMjbxOyV6Yc RPHvuImkTqD2f0A9My5L HJposeh4B9QtHvkp dHI+HW21PTSkLX80lXNp dYBww4ahxLw5CuCcAEOk IZT4tUetATdgq4EwYSFw M86tqWNzr8Q6SJLl bGx (more content not included)... [facility] Wound Care Noteon 08-26-2023 Wound Care Note [id number]#1. 00OTGTIFF [facility] Coding Summaryon 08-23-2023 Coding Summary HTMLBase 64 FuhbkkvoGKv0nBb+PGhl YWQ+KY0LUEXkP81zpZZq fF6nP0YGQGbBBlcyOESV YLzATwKsruKgOQ8yoHDr ZXJu IC8+RK2uJBFvHwvxkBMv t0P2yQM3W52zog4bCAsr gMG0SKNbZgDjanvtf3wk dPp6SIzvQipjEhOd PFScwE63KKS3jZ13Ec48 fEEulSCph0mwqLe9BgBa GFZeDOX6pNteMJgta9Lh OKNpC69clBEzi8B5 IGNvbGxhcHNlOyBlbXB0 qS0fMZugdivfm1qfzloy Vrz9wo27jIPtw1M2rEE7 R1LfcjD7EXRptNXb YfysvFTPbN7zhzvyv4uk egkyTuDvRMXyXUw6TEu7 AVYadCxrChTlWR78ZXC8 UCKawdJfQ2NqKONr mCkdWwE9h5M5Hy9EQ4CJ FihrI7ALZJHHCOnipHR+ RI48er00U1LvCmfeJfu6 GVSwVVB7gOU5lS9j TGLxQQszk6G6rQX2G1Mb ixNzvp6xf0pvLYJzSZof S29nhNYtc1L4CGSrmAF2 IKPhwFjtWgYokB17 Oyc+YELqfJcla1YdEeob u6ucc1zkuNz8ObtlTKTf ihBcnKlpNJT6b7GoIg5s LIRccNH1zDU1rG4p QjCyAoA1CKtqA353OmPi bXZzVumaD38eI8AabGR+ VBEnHgt9WEEmrTmzFQ9v K4UmTMGsnwxpuJZb pBkpAC9jWIZtcvtmUVVt nK9bWBEsW7i1PdZzMrM8 LBgxX9IkETZuibxwPo94 rZ9fInMzMbM5YHvz O9MxohM6QELinQUtNEof CLH6A39oe0G9ZMIfYTIs THV2oIM1uN1seBrcsuxl bGVmdDsgdmVydGlj TZqkKCbjJ495FQNxaYfl PkNvZGluZyBEYXRlOiAg MDQvMTkvMjAyNDwvdGQ+ TKZqCVJ9wSpaPPDv fYNjTOhpOa3zvKamrEck EQ9bMFXebjnjXFZdiR1l OSZjcVRcuGvfMC1dGXNn zusst351IeVjWRR5 ZMFfjHKaH9AfrO6dHgAm ITYbGOTqM1CaoOZgSXpf J255VUguRfL5TZTedwSi D7HwHQTayHorQbY7 g0T2Wp0Tc8GdroymY7Jd tSTzXxWmMpfrINi1S9My PjwvdHI+YG27KHYmWA69 PBc5BXC2pCryPVvp SDGeO3GygH5pIoDeLTVk ZGRkOyc+PHRhYmxlIHdp ZHRoPScxMDAlJyBzdHls QR3hXt3iBTLuHLTi gVdjvFCkOwMqi9cwFDEn KVcmRP4orNsfB4OupYR0 PDMpb2z6Ws41J99kQ5Pn dXA+SZBraJL3nRW9 tZ2iIbHgJgI3MXscW080 EsWzzQFsOykjn7zvu3zy bPw1BtE2DOXklwWraRht JZD8y8EcHf27I76b IHdpZHRoPSIxNSUiIHZh nEacui9caF8vSa1+PGNv sAY7nWB3rY3lPpDcTmM5 WRlhJ498RyEoqVYo Ofged5upl0xorFp6ElEg IHCzbfEraDcmNRP0l5Pb Yx09I2NnyWoas0HbZee7 bb95iMExd3J9xEU6 G8WcZDEtzsdncARgqRsz XP2tXJFhbwtqCMWutI1d QELjN3f8TsRcFkA5ERnm J4OlqxI1RHFaiUTp UJPorDANvT2oesxqg5oq rpncLfDfIOYdKFo6EFd2 EXLicUdjUzZiPHH7GuE2 LRU7vUVkzU2qvDpo iqprgX1hExm+NOO8fQFa fCRCOL0fLcvzjEO+PHRk TQX4rVgeTUxzBOWldK6z ASGyT0a3XeXjYvD6 ZGawC8IislR3YYKkhADx KOGdaJUAqW0kdfceu8ei ycszLbAcPMRrPJa4DEn5 LWFsaWduOiBsZWZ0 UoC4XBJ0sXKrbA7lxKsb fqcrwQ9jOov+QmlydGgg WKO9DSx4O0LuLhr1LRVo jKxvCH7lhULzBFwn Ae0glIhrcBscTU1eAVVh vgspr528HlWlz9ueJJEo jLUiNLfjOLZ2K71jg5Q7 RCHrVLUfSQV9pQA5 oI6ecWyxzcbwvIHodJqo qoOfjZutSQorOWqyH007 HCVrqSgaBxFdLPs1X2Iq Mjn5MVXleGfuCS7o zRBxRPgxOe6fjYbdnTup JW2yAOJgwtotv160SuYq g7wiUMFqnQTbVCjjUKU7 A71vl2Y0CVTaBHSm QMX1uSL7kI5xaKvuahwx bGVmdDsgdmVydGljYWwt ZRiaD351HFVyiKyePwNt pVl3I6RqVjr7NOCr sPctOS5jpSVhKNikWa9s dYwcwMjyTB9vLGSvslwq d638IxXpc6psMLKgiVOv ASvlZAO1Q81df8P8 OZDuKHRvAPG1bNK3iU5g bGlnbjogbGVmdDsgdmVy rJsrCFzrOFxaC830RGOe cDsnPlBhdGllbnQg XCqxODs7U0MfVjgexOO+ GK71TCBmQW66sLThuUUz n3fgbYl1FnThFPRkYZK6 qGpfBBxot1LmTDRt B52coINfu4P7UXCoxOzw tKGtNmBmjQE5gZ9yOSlu zmglj1egzrllSgiiq5jj wb42iZ48M00cXFlh ZHRoPSIzMCUiIHZhbGln bw1boA0lQb3+PGNvbCB3 dNH5rH5gGUUrHnM1COxg G406HiGawYFkBais k5dmi5mqhFw3JuG4SOGr wrFqeLhgEBZ0k5JhCs44 O66dVNikWPKpNGNgNDUl ZDDjiLpbxv4anH7l Ii8+MQNdkSZ8zXN5sH4v DrUnAkH1KFsfU553CmBm iQTgAbctC60tS0AyuQP+ PRKuVsa8XSPhvUqg XT4myBPjJYgvCh4gMPR1 QbKpGrDuMQzzL6TbMDIu ebkjzablsHQ9VAKyEIEn kP08Yu8nyXnmHDPj hWSJlF3jsftyo1slmmfr VkHpFBHvSCn3DUk4QJZf lTkaMuWdLND6RdA9MEE4 zTXlvN2ngGcsdplq eI5eK2KgWUPchhztYy45 yH7lZfCqAnY0OAahHcl+ R2BFGxgtOB6GX6bWNXon SzwvdGQ+PHRkIHN0 lRldFPxpTKYpmE2fSPLy I6n2PoGkQjP8DRelO8Uq PAVmxpzjTx47eX9uKwPw PrH6MXxtB4VvmxP6 ECLksRIiMKmxLPD4E23k s6S9FBYxZMZgZCZ6eXW5 dK8kyLdxrwxgwCBywPmh dmVydGljYWwtYWxp C814VBXdoEojDeVpYaD0 BjI3XmN3T2QaQlk8IEDm pTptLS3bcQPwIEuoOo8h kMpbjHfkUM3nYTOj wdcuOQMbzH7cOTYicFTp nRxxOL8vZJWrjkpnr919 UgGhHAC9GKWkeSPzX8Mr lR3bIyUeIXHyXRHh J8RgiGUiTCbvP653BSdx DwP1RDGqjcSfS2AwJSOl bDdpEcY8j5E9Yf99EGHS ZWFyczwvdGQ+PHRk CEG8mUaaLWkfKIQmzD7h XLBvK4n2QmRlErB1UKfd W0KoPHNxpeihKw56bO2i QsMnQtW5RTlxM0Tg mhZ0UXVzoPMcIGgrROZ7 W52tr4Y1HIDcBGLbBIS0 lVQ8xN3yeSizcpddyPKp dDsgdmVydGljYWwt JVmaH238ZANsbDhfTj3A BPA5M5TeVrm6SQXyuMjb HH5laFQwEIjvZs5etEfw wHrfPC5iOFNzbpjh LOTxpY2nVJQsqWKngEsz OH4aQXDpekhvr371XcSt XTD7BRNmnSVdG8CohJ1c CiCiXVMiYITrT8Ds hVTfOWzrL369RKfxSnV1 BXCusdAyA9RwCRFbsJsb GrK2u4V5Fb7QHQilzFF+ GI80bf94N6TsZkpp Vyq0JXLhUFC4pJV2gW7b GYZaDOguh2A4pPI5E9Py ezNfmr3ge0fcFIErOUee B39voJKir5C4ZXHp eXN1MQSsiHuyYfBolF07 Oyc+SDUklWtrs5EvVxec n0ihv6ragXv4InWvHZYt weDjrGmsIPA2g0On Mc61Z65oQXmvTEBfNLMs HBDfQRIsySjtps8ptK7d Ii8+XPEtrVP8qWX5gG3w LxCrCfO8VUehS990 OrIgvFLcZzsjc0uga3ng bSz9AlHcYAFllrXygNmp VMX5g5JwAg77P4LxoFgh g5RjEnq1dg14iDCo j8T6xTR8P5PvVLBsdcjw uMWsjBapFG7rCZLscgar ZCGveV5yEHWbD4v1IhJf MaQ3CTrwR8YhffI6 KQMdpPFaYOVvvQOZaJ1v wmkfb0dzfonlRqMoVEDq UHm5JIq6XRFalRomRhPm OPE7AjB9WDY6jLTn mZ2xmZvhvnlepK4fCzl+ QMd3b5buvWQbUK5ghMQ7 YK28PO25aJQmt3I2qPG2 A9MnZJZmbpjnonxn uEZ9XIJfLYXvqD08Io3y mUcxOm5iWLZuWPI6NFLx wZWqO2PyfV2mMiUjXMEl UPXdC0QdyHZvTSua X684QNkfSeJ3RQAjsrTv S2PbTWDygTogDgI4b3U5 Iu5WYW97HT86NT90zEGj c4S2jIT5X6TgYTHn quhcqtkqkEV4XQTmOHOg dU39Ch7mpAltSw0hVSKb DJR7QOZtjBWgD3XffI7j LiDjZWOyMKDyA8Ph wRXvLRjsC084ROyoTkX4 SZTwtjMmL8BtZWFyeMmm IoF0t5X6Ht2PSb33EV81 IN30pRSub5X2sUD8 I2DoNLVbcudviasxyJS1 WYKvEUCooQ04Ji6qwXau Zw7uAMVnWAC9DGSfhCHj S3KfvV2dUdVjLGTb BMFyJ6PhgMOsGLtqS495 KCbtXfO3YQFctnAiR8Hz ELUqsAehGvZ0k3Z1Dk7O VYjdwye7D5HoTjlz dHI+ZT22GBQcEM31qSBb sPYiz9wlhPk6GvQtIGQq SNP3eXxpNMigg0PdDJIx S95qqBFlz4V4ADIp bGx (more content not included)... [facility] Wound Care Noteon 08-19-2023 Wound Care Note [id number]#1. 00OTGTIFF [facility] Coding Summaryon 08-17-2023 Coding Summary HTMLBase 64 EcqrhhqsHLz5pNj+PGhl YWQ+TN9ZQBZsA96ubWZm wU8uQ7QJYCjNTpylXMAN ERwGPrOfgfBgUT2wpCFl ZXJu IC8+BG3cHTHeFyadfPUc n6X2fNJ7O57drf6bNLiq nNN6RGDbKoZlifgsf7ke uTu1MTejLdqxIfMj NYKswV66DXK5cL20Wr83 bNWcyREuf2drdFi3ToCd FPXrCLT6cGwjYJxge9Dr DSMxX79coQQyw8W6 IGNvbGxhcHNlOyBlbXB0 pK2qCFyjzoflb4dcbxmt Jji0tg21xVDqx9L6zVZ3 X7VbnnN3NIYlzJAs HoiqlMQBjO8vxrhyj9lv cgyaBsRcOSXvIWx6XDw8 YCDmzJohVgQdFK65PZL0 RZAewuMtN9HfQTTz sXqiTcI1z5J7Qd0BL6LK VcicE0VGTTKHVOopfQH+ KK69rs89D3QkUtlcAfg2 CEZoEPO6rDX4wF1p KHItTLtri1R7hMB2H5Bx miKynj8ya5sgKGYhWGwm E15ehCTtt9U3WCUiePD1 WEQpvXfgVjUoaI93 Oyc+WEOolCpej4WwItxt x7owu1zckEc6OuzcIOUr ppHdjHkgWBC1q9KmLb6l GSTozHS5yQB5kC8p ZhRtInZ7XJcxW318NfQi nWSbSwjlT44qM0FmgEN+ WFZlKmi2SFAjdYoxWR7w R8AzZEHttounlMMc xYiqJN8rBUNntrgwXTAm yC0fQQCiH3v7GjDdPhS0 OXywD2ThVJGoyytdLz92 zA4mRoIqXwR7GHrd N4ZaqoE9DKGjtFNfPWyo QHN8M64wi8Q5WPRsDNCl LMJ3jQN8gS0gbBloegwv bGVmdDsgdmVydGlj OFvaYUfjH171TXIkpUde PkNvZGluZyBEYXRlOiAg MDQvMTMvMjAyNDwvdGQ+ MQOgEBO0ySohNZTj qNQlOVjbLb5hfYvhxDlg RY9yBUXrvyaaEAQzkM5q ULOvgHNdbKqiJC7fNMGp exyrj423TuOfNLZ0 QPXfuLNfW9RjxM2cQnMp GWCiGDUpT4UvkMEhNYql V171LUfmUlK1CHGhrgQh G2HwCTByuFlbNbA5 q5A4Pd6Ge5HlrhivM6Vf uGRvTjEzDlczVLh7G7Ka PjwvdHI+FM84QEGuJU39 EIu8UPS3wPptZUca IEYvE4ZxbX1hCvGaRRQm ZGRkOyc+PHRhYmxlIHdp ZHRoPScxMDAlJyBzdHls IU7cYd1oUORpQVMn uGbzyVIxMfZvh3hnXEHv QAziEO6sqSqyC4HqwCS8 FIRpf3l9Wh74T91vB6Pc dXA+OYXfaOF5uGU3 nJ6cUjSsWsJ2NPybI839 AtXkrBOsFqssg0vmq8tq zMn8JhZ5LWQfiiBrqMcy TQT3d9ZlOt58I27y IHdpZHRoPSIxNSUiIHZh fQxyge9lkE5fXd8+PGNv zPN3sII3iX0bYnTrGkO1 EIdjU870PiFlmCKx Xdhhv5ycw0nitPj8JeFz SCWkwcLfyThgNQM8o9Zw Vt29S5YqjYntd9XoQof5 xk63lQQzp2W6jQG6 C1RhIUZrvyoezIWgqAlt FH1eZDUxazqrNRUaiX9l IUZmL6j1CtIfHsH9QKrg S4AfnhT0SQRouVPx AGUcvZFByP2gmtjht3hu aimyBmFxLFVgPVy5ZNn2 JIBlgBljAeAjIBH3JrC2 UUD7lUIjdY3aeGtm ajwchP6xHol+BMA7yVRx uZSDBD7zRnduiTS+PHRk VZB0jJpbIWxlOVHqhQ7m AJNpR9t9NvBcZlC8 GFqbR3CsziL0VCWacUOu GZBmfPBRzO3arfimq7ye fanpTmQrJSNcGHv3CFo4 LWFsaWduOiBsZWZ0 FrN8ZJZ9iYMbpJ4dmJao fsvltJ4jUgs+QmlydGgg WYO5GKf3R3OgDjj8CQTm iQymIN2lyFMsPVbn Zv1eyQzctFlxMY3cITXd pzlnt096LuTfh0kiXFSv yOUvQWxgSYF1M97oq5Q3 PDJwXKZkTEE3iTM0 mM3nqQmnksnotSHbvKpm yvBceHdbKQzgQVxwB380 TICssYxcUhMaGYf7O9Oo Gby0DMNfkPffHO6e zYLzRHzsOi0kaFptoRwq SB8iIJBtdwluw130PyLu x7wrZBKryPRgTHovMVT3 U71jm5N1ZTQuRPJi EMV4pDM6cK6yfAfpmuuv bGVmdDsgdmVydGljYWwt HUzfT235ZTOqgKvrYuZe jEb5C8NvSgn6HAMc zFpzCF8ywFLlTKywVb4d xFjquPooYU3kAGXjgcgt w110EcQeb6amQOIepNXv COvqQOP3D55be1X6 YJZmNABbVQO1oXG3yW9z bGlnbjogbGVmdDsgdmVy dTniWJrmWKzwA293GMId cDsnPlBhdGllbnQg GHdcWTh9I6ByXfmkjDL+ UI71DBPgWC24sWPscVFx q8zgoXh6WwUnWAWxGRH9 dMeaXFxuf0HjDJWn H60iuRImb4W5ETGpzXmw pLYlGpUefYK5nC1xGMbs izodb0ozqrhlSnqxu0pb nd46gC72X67bOFof ZHRoPSIzMCUiIHZhbGln ce4buW3zYm6+PGNvbCB3 uDG5vR3jAYReRrV9ULsf O504RdDqzTVfTroo m3hjt0acmUn7UgI3IGLq udMqcTeaMDE5r0AnZc62 I18eZAfaLJHgWVLoMSEc ZDJthBnklp3ztJ3a Ii8+YDOoePL3cHI5wS3p JcXgJvP0WQscL616OkKq hSLyWqvoF38yW1QapQZ+ ZDIwPhq7RBTmySws ES4izBYeASrzKf7iLUQ0 EwZyOtNcWXtmC2BuJZOz fwwsuczekYD2JLKqAGOm bZ13Yb6ymWbdRSNz kEKJxY2ukujlw1ginves NsZxXVIfPFo1JFd4DDAe aKcnLdDyGEW7DhL7IQE9 wEHxeC0frCqygmqv hG7vS2HqFWTskjegQr55 gT1iHcOrStO0GLnfIbk+ T4DIQvzoGE0TB3fDPCyi SzwvdGQ+PHRkIHN0 gOomVVhzDEDmhH4tUBUv C9j7HmBwYhN5RBfwA7Fc DZUykrdxGr97tZ6mRaKp HoY6CZqmN9LfktP7 ZYGleRSdYCyzTJD4H39s h2P7AQZlWPGhROL9jRZ0 cJ1rmNujqdgrgVSuuPrs dmVydGljYWwtYWxp S815AFMklFkoVgOzHeS5 TrZ2MkH0Z8PaMfx0LBBa qLexVH5bjOTiNJqzOe7c aZjmmKvfIX8jARDv oyloDPZdjQ5eKGRgjASi tHabMV3bHEIxgtbde625 VcQrVGO2EVZktRYtX6Ir tP2jKfCxJJAmLVCs L7WcyOAuEJsyH464NKth FaO6ICPqmxPgJ0LsWHTw kYwaCsQ8d4X8Fj82OINA ZWFyczwvdGQ+PHRk LDQ0tMebAUttBRQftF9q TEIjO2x9WzHfCoC6YOzs S0AeOHAhvnozJp88sD1t QlUhKlH1MIxzJ4Ex raG5DXSqwFNvNMkbPDI8 U43cr4P7PJNmYRNcBFA8 gPE5eS9ndPlbndyjeNRv dDsgdmVydGljYWwt WIqeT876QQKgyLchFe2S KAC7A0CeYko2LCIshZdm ZJ6emTDhHRgnMb2gdTyl xXhvDX5qSKPeckrh BIZoxK8yHSHhqDWxrHpr GA2gBNZqfxvkd734TcGa OWQ2TGCejNDbE1YglW4h VyOwBHJaTTQwH5Ch aBTmCNrxF881FNoaQpH5 YVVcppUsO9XeFBRgpCkw TrN3w8E1Vv2QXGhlsPN+ SG50bl87E5KnDaku Tii5UCEpFXL5qDU3hB9i TENqWXdbr6P6kFA6N8Fx woGlxd7cq9gvABQcNFjp A95puKZmd4J9SOPd rJV6NXXhrEkdUfLpaR67 Oyc+LJMczEgyg2KoAhto g5mrs2ewdXe2JjKpAXLz ymPhpWwmZMI9w4Sm Hv05R53eTFlbFHZySHOa MGNcEHAcoMxeww8afU7e Ii8+BOTacQD1yZW6bM1x YhSlLwH5ABtwX068 GySpgUTzSznht6yot5gy fKz1LdDyHQFovfWepKwc JNZ6l6QvQl25W8MinDte h6KiIfr7yt86aTKs s1Y0eOY0T0GbDEYivddp nNWruTzjBR2iHIQhddvn YCChuC6oXFOdX0r3XoId KxW6QKcsD8MubtN5 NVMdqQOdDCXzcUBGtI5u geuhp5yiixrwRrAbOTBx FVn6ARr2KTRrvFayIkOu GYZ3PrV1AWU2vOPi oV3tdAvwaurmjX0rDdz+ HCm4m9ojoELkDT1wqME3 PD02UJ25kSKve7A0hUS0 M9SoDOKbajawgqqk mET3PJAyTEUqeB01Gh1c qCofRd3iIKQrGID1TGKv pNWlT1IpiU1zZtHcBMCk CRJkK2IfzWQlERec C884HWybWhL6HHCeloPd D0UrETAkeRneOrS7k4G5 Sj0JJE80JS50PW48fDKj c4L1lGC3Y8KiDRTd drvkdxpzxSQ8IYRpOHAu jG08Ow1kdZyeWd3nPROa KYV2AKJgzUHyZ3OocS1a QxIxCPOvYXDdQ3Wm aLIuWMmhS381CSijMaB1 YUYewcTsH2JvXXZphTlk XtR2r6O9Ie2NTv81BB58 LT57bDBwo0G1aPW3 H0HhIGTttcmzvbibyZI6 SCFcIYAzbF08By6blAen Cr2aRQDwRNE9EQKmkTQr A4KdjS3fCpTcZXFc TDCjT0KfwYHcJGczJ289 XMekMtT1LKRnqyImZ8Ig XPCodEzmEcO3i2C5Jj9U AOcusmf0T8UzDjzy dHI+TS26LPRgXF08dYLe zPQop0ocyAr9CyWxDSUb VRL4mCgrDMpqg8TsLDBx A59qfATec3M2LXCo bGx (more content not included)... [facility] Coding Summary HTMLBase 64 FaenpftlAPr3oPl+PGhl YWQ+DV5SAWRkO68umIXk rL0hA4FLVPoMIvtlLFLO KNjQEdVkivKpHV3eqKZj ZXJu IC8+BT9zCHEuJrtikGVg v2Y0vZP0A74aaf2uFNqk wUN7AUOkIyYojnzwy1rm qSl1TDvkNjcaZuZf MXRpuV67XIR1zQ40Yx95 kNTtmFVqp7mfhUh6RhSw DFOyVYN8xXjuYYrzi7Zc LKVjZ82iuHLho0N9 IGNvbGxhcHNlOyBlbXB0 vH5tUDelgwizh5iirniv Fby4vz50mQBzo3A9uHC8 N8SgkdX8OXPdnOUi ZwetnHNMcE9vxecvs7lf iilqKsBnCOZiYPf0VAx8 DXKmcOwhNxZkVZ21TDI5 RUSxpqBxU2WwSQGl aXrcNrK4g6N2Jp9WW6IL KxmcQ2CNITBREUrbxIZ+ RR04md42K6AbNpflYek7 LZKwHXO2rAF4kM6s APXlRVkjd3V4tRZ7T4Rc ofHdtf4ur6iuZHBuKZkr Q27qtFQgl9X7AIIlaDF6 NKBtbYzwAlTxxD58 Oyc+VNIafGbaf2LzGclk z8afl1cohEp5ZtoxJQFq neErmRkyHLP3f5XhVb7m XOAfgQQ3tXB0oI5n NfXlEgJ8AAdmE349YgCf xERuEahtX69xY3TgvRS+ URTuSdx2KIZdgAycVS2y C5TvPYIeojomgQOt dIddXF0jNPOrmgcjKFFw fI4hFMShR1g9TxZiGrP7 QMzuZ9WcHIAxlrecDg46 lS6dBlEfYdR0EZyf T5LsttM2EMXwrUMgJGqu SOH6P25if9A1EBQdNBIl GTR8yDN1qN1lrWnqhnnq bGVmdDsgdmVydGlj DGftVEivP428WIWknIhj PkNvZGluZyBEYXRlOiAg MDQvMTMvMjAyNDwvdGQ+ SNZmKIL9zBnsPYNk yFWqPSxbWu4lcRoarIxz VU6aWMQfzaufIBYofL5p MAXdnFJfuHjzZA0uCQQe srczv249GpAqUSO2 DDDwjMIdF7VaxG0nLcSc FPTfAPJzU4FukFDkBLaq W482GSkdIsK0GEAsogNf L4GgLWJyuMayJiG8 b0Y0Uq5Gm3CeiyhdS8Xi vSRyEtBcCmutYDc7U3Nc PjwvdHI+QC67BAKuIQ58 AZi2KFE2jEpfXGvv REFfQ2CsiM7sLbNmEVXm ZGRkOyc+PHRhYmxlIHdp ZHRoPScxMDAlJyBzdHls DG8tIs3cNBCxWILe dHhcpCQzYrWtw4diYYWg IXnsLV1snWzuJ2XkuUI8 KDIgx9h8Je36F32wP8Dn dXA+KLGkuWA6bBG1 fS9rNdEvMkU3NDlzD494 UnSabGXmVdror3bui8df lPg7VpA7QRVwmgLraIvu FPM4w4ZmMx52V97p IHdpZHRoPSIxNSUiIHZh sTvljz9dsL5gCi1+PGNv bXE5rOZ0zD1zBzZrOwJ1 BRyjX510YvKjlHGm Xgnbg6zeg7efkMw4SwLk ECXowaWdnEshIIQ0q0Cx Sf97S5FrnMiri7LfPwf8 ib30iGLqg6P1tUH7 X8NpEYUsrhwfvAIefVsf UM0oYTXwldyjIDXeiL7r MIAeA1x4OpRpJeI5VLuw K5GuusH7QWAsoCUk HPPntYGUaH5nmjfup8ji cwybItWyRXMpUWh3YAj2 KDDkoHzxWvBzHTY5AbG2 ZQI2tJDibW9dbYip qtdifX3cDsc+TIO2iBQr iUAJPR3rZjgvdEN+PHRk TNB8lUkkEIfoMAVobX6s GIYxR7n5QbVdHzZ8 PPrlY7UmukS6LGWtuHUm CPNfoRIJsC3ocmaxd4sv zuxcCjUrYPByOSt7VQz4 LWFsaWduOiBsZWZ0 FwF5FRE5yCDetM5qsNip uruwyR9nQgp+QmlydGgg DBF7MMx5I5HzPrv8NXYe fTvbYO0zfDLzYPht Lq6vwUszmKnsKL3cQJVd ltvay271TwKmn1prPYQw qZJeXSstICF0C80yj2G3 AGUoWLWtRAF2nZS3 oC3ujDkzhunsyWLbbRqv cqQkeWnjGRtsBKhfQ388 NUYbiTqiJfPeCYp4Q2Iu Tiu9GCLqsPruYI9m vWNyKVnoUn6vuOrhgOjv GA6uCBDfddvlr651QcCk w5whRHIamDEdFRytKQV2 A76ln7P8BTOdFWKc BXQ0nNU4nZ7icXyozcph bGVmdDsgdmVydGljYWwt WPlvB715NCCvwWxhXhQf hGd8N2AhJcr5KUJu aXhmFE3xhQRwEHyqJi4q nVpbsDvwIS7tOMEdwemc x852JkCer9ewLSBsxMLw FJgxGZO8M45tb6Q5 GDVoDBJaOKE0tZN8xM5i bGlnbjogbGVmdDsgdmVy bKveBVecKUgpS817KIVj cDsnPlBhdGllbnQg IKzeKAo7T3SvVflyxZO+ YI52OTIrTA10dEWwiJFi i3jqvMq5ClXpVZMwZWZ9 tJojXLpzp9WdEDVz M09wuSJvv3G0HPLvsJkm lJQkZhUzzEY3lB9zTZxr hyyfx5qrvddgEvomd0mg xi17jK32T76lIFwr ZHRoPSIzMCUiIHZhbGln le7ibK7wVz6+PGNvbCB3 zAO7tX7nJEOaDiQ3QMyj Y367OoBpkVQhKiiu m1cqa8wlqOw0VuT2IAKw mkWzyJwlYEP4w3LeRl83 C53zVIseOEYdOUImAXMj PQWglPmvju3euP3n Ii8+KQQwpZB5iTN3qT9e MdEeUpW2ABtkB599NpEg fXOvFfuqX09zT7MwfAR+ HAIuExj3OMIagSob JD5jkWCdRXjmUi4eJYF0 TnCkByZqUAtfK4QcWQAr fzxkgawkvMY3MJBhYSJm tP22Uu4kdTawAXKq uAHBcV7qehpge6gjogmv GaCwFAFtYYn9ARb5JURu pMvoVfObJWT6BjY8AZP2 sATypB2unGtcgjuv zW5hR2SbJSClrfdsZj47 nB5wJmAjDcN8DCccVsc+ O3ETSdgdUJ8FN1vVUUzx SzwvdGQ+PHRkIHN0 rObzYSlrUKGpzE7uQDRc H8t7FeLmDoQ7ISuwC4Vy GWUejtxrPs24oP3vOoDk LwS1CAfwF0UuaoF6 VMZxyVVfRHkbKOL0N70z j8R9XSSmLDPrPQW0dGJ2 qS7sgTsahaqbzKCkdSma dmVydGljYWwtYWxp R713ZHEbkNtiAzAbGzK3 RoC9GqQ5R6ZnDra7YYBz fOutCI0pmKAhHXggCu0g mWidbVhvOH4lPKRz aajtBLQhnN3ySFYmrLBs yWagUM6dTZQlkxvzq754 FvCmWFN4HESouQNvQ6Fl iW1eSpDhXCBsVXPg U2IxnFQiJTteO316KTcu GqC4RWNzvdSgG1UhGPMd nCovNvP2z2X1Qp26GSYX ZWFyczwvdGQ+PHRk LDP8sNxuRZnoOEJleP6c YGJoV5r0DtYiVqH3FPpo I2QwDOWjutuuFo58cZ6i UxAsEqF5FXgsH4Qs udT7TBAwtKTnLEhnABC1 E20aw0P8HKBaYBQyQWA6 rTF9vI8oiJqvtskulTCv dDsgdmVydGljYWwt RNdfZ790RSSjrKouOn4Z YFO1V8LfHzv6UTIctLwb FK4xnXUqYIebEs4vvBtz xEeuCY8zEIIqdkpw ITZjzP7fZJVsjIXrzIxz TT0rFOQizrjkr831SfSv KFG1SGPpcFOfU5AaxR0w SsIfZVNtWBHxK9Lc lVZxLOokA845MGtqWnL3 LKXqhfFzR4IrDTFsiIck LkX9t5G5Wf1QRUpywDO+ UR90wp25P1ImSdrf Hzm1KPImDDW3vXS0nU1b QBDfEMcjk1U2zFP1Q2Qm wlXbou3gi9qlSWJnDWum Y41xtPFhr4B2SZXv mEG2EFRauRdvPkAftC72 Oyc+SIEflKtml4UoUtvr t7uid2gwiVf6CwXpBLAn doPgxYsgHKY8t4Cn Xa73U46uBPflLIZjZISa BRXbZEXnlJyztg5plA3a Ii8+PCTtcOM4iRF6dA6r QmIaJqT9XVvxR171 ZkTjyFLxLubud5uzz8wo eUa6MfSlOFQpwkXamIij ZMS3c5BmGp68T1ZtyAnn a0MaQxg8xi69kGZt d8Q2cXZ0R2WgCHVefdbz vGEujBmbEP3yYUDbhups UVVdiS0vPFRvV1r6HlDs MpX5FMljA4RvxuR7 ZUEbjMJaGNXebJMQbM9q tlvmn2pkubgdKtNsZPJe RHv7YFs7BDVlzHnhGgMk GQP2GkW4GGT9sFLg nH8tgKggbyyuoF1aBwp+ UNe3x9qzyKTtNO0pbUJ6 RV44UT17dKYwt2H7zCH2 U0PlJMTkstdmppjy mZW4NXPoRNXgpH86Yw8c xEwwHm7eDPYeHYI2JAIk lWXvM6MhgH7iMpLaAWTk GCHlU1BdhAXwVAvf C230VCyhNrF5CCGkxoAw P0IrLYQmmVxqWaT2j1G1 It6GEV54SQ99NV15kBMc b4Y2sJD5A0PmOFZd txwygutqtSK7DUTeUBOc pL16Hv6zoNxzQw5iHOZp OCV7TNYidHWrM5PijR2c IxXnEJWxZOStP2Mm qFFvDWxnO946XHirVxM8 HTAfkyWwL6XxMBGpjZao YrM6j6Q3Ya5MEm17EH15 FC27zONal1A5hSW5 W7NpGAOcknijncoueAK2 NYUwMNDdmU36Vs0cxGdf Uq0pXLIlKHI8FBMxxFOu L6WhyI2kXiTpRUHx CERsU1BjvHLlFCfbG681 FAmeJpM8QJWepbCvF5Tg JBGleNezGuW0f7I9Xq8A PIbycgm0F9DdXxru dHI+QQ38XKSiVL35tBPl lMMxq8iihQl0YyTzJJQt RZF7uIuaHCbww8WrCWKu R08xeANne9D3UPNj bGx (more content not included)... [facility] Coding Summaryon 08-15-2023 Coding Summary HTMLBase 64 ExbspwnbCFq3wAh+PGhl YWQ+QH7UNCZqJ13wsUAx mA1eQ0RVJIhIVlzhOIUW RRuIAuPzxtLdQY3wgIIx ZXJu IC8+TU1eTYObEggubSSy u6X5mSX8B22uwe0gCPed aKK4DYBrSrPcvbiar2rh wWf9KTzuJdcaJwFg FBOknG96SVQ4gQ43Dl34 cUOzbWBri5pybJr8OzHr ZSCoAMA5pGbrJKajc1Jv LGHkL93omKDpu1G1 IGNvbGxhcHNlOyBlbXB0 kU9uNAftwlant6lcknkt Ccp1bi02yMNcw3O0pJZ1 M4EsvqR5LCYsfCVu KfopwTDHfK3ihukdo8ga ivnoIcZhLZDlROm9RVa5 SHJufMwpWqVnAY49URV0 AWObmbWwE1UjZVLz hBgxUcF4j2T8Ab4LK8DG YkbjP9WVGWAWZMhrlNE+ YL31rb93A1QlUlanTmd5 TRAcMKG1gRT2zN4n DNWjZNarv2J3iSW6S2Zn hmYakp9nk6boQRAzYDju X23pnJLod0B9GOFkjFA7 QQKzkPddOaKsxH48 Oyc+LNLseUgwx4XjFsvn r7flt9bnfGm4XbklISMy vtNapRduFTR4n8ZgEi5q MQQgzZT4mYT0oS9m SfXkZtM3JOrpM279JlIh bRYyJlhzV62rS0MiuEK+ THWsItn4JTVbwSewIW4u S3VsSMAryhbgrJPt bEggYM4lAXNejnwyPPJt dT6dLMDdR9f9EjTlWyW0 NJgyW4KrQVQqmnalNe75 nH7iTmMoEiY2MJtx L3EltnD9KPHriWQhEUtz QLX3S28gw0N6TGCgHQNg MPN9dXW6uY0ekAgpvlcj bGVmdDsgdmVydGlj VYvqBIbxA729MNLtkJga PkNvZGluZyBEYXRlOiAg MDQvMTEvMjAyNDwvdGQ+ QXKxSJO6hXsiPGZt wJBeWNsiPs1blIukyVlz AY8rKFIrbukhOOIxdS2v TFHfbGLjnNjqPO0dZCOf yoisw041NkTmVEI8 TUIhcVNdS4OhoU5rIdIk DXUdUFCiW5JjhVSvWTbb Q913ETytPaI7GLQofgZm V7LmYTVlpWubKwN9 h2I7Qh8Uf5LghsenT8Lq gSZpGtMaTmhvHSr0K0Aq PjwvdHI+OA99WJRcDJ42 UYs6YIE1bCcaLBhk QOSkU3KazE2mJvWyONNo ZGRkOyc+PHRhYmxlIHdp ZHRoPScxMDAlJyBzdHls YG9zLm6zLCMbBYSb sRpjyYPmJgHiu9luTIIb PAbwEH5twZmcS5SbdFU4 FWMff1e0Sw70E05aM5Jd dXA+QEDfcMJ6yRQ7 wU4bTtOeNeY9FAlyV036 NqMhkPVkXldmh7tmu9px hUe4DfY2HRPfonUjyGho WLB2z2WpDy06Z92a IHdpZHRoPSIxNSUiIHZh yXmmqa3ghU8zYa2+PGNv dSD3bFF9nM3wYrGwBpI6 XNgmB662YpYutFYa Pgkib5zeo0xjxAt4XxAa XSWyttNpdCanAUA2n0Au Zc18P2YzzFuhu1HfEnx0 wl39fPTsq3F9dNU0 E4JjHXFetulpxKNocKba VB1nYDAqnzvzIINqkY3g DZAxA4a5IrYwLxY8PYfd F1TwbpB8KGYnmZHh JPMjhZWAqJ3vdkhnr6qd gudzBhZeKTHuSCw6MRb1 USZkkItsQhQiBTJ6SkY6 NBM2sRCcvA6qmQxb huwguF1jKjp+VWF8gJEi cHBCDV9gUobapLK+PHRk UFG4uGguXLqsHUCwpX6w JZOoG2g1IwHeQhY6 KPaiR9KcihY1YAHynWKc ADNsnWBEgP6ehydux7um daanTiLbETDbRGg4JSy8 LWFsaWduOiBsZWZ0 PzH3NVG2cWPdeN9icBgl mfnqbY4oWxo+QmlydGgg YWC3VGv6P6TlKug1CYPn hXkxIL9eoHUmCRde Vm6iuSbgaKfeTQ6mZLZy gscxa918SgEzp4sjAADp xRNkLXsxSIZ4Q63oe2K6 GMRgYJVkRQB5kJF4 rS0whYjjvaxurREhoHsh rvIbyNfyTRftVOqlU230 OPEbbRjiDyGuPWo8U7Rl Nve8JDPnjGhiMA2b kXFjJCwqWu6kbCfoqTvr TH8tYNZxrkjlg225HkQk q3qbSELxuJDsYMypPGP9 K71qp2V4ATEuXIIh RTT3rLL6hF9utLkmqdwy bGVmdDsgdmVydGljYWwt ZVqwQ694MTLtwSkhYbJr tYb1K4WoPcp9FIZd sYenPQ8euEIsBRisIg0y dMmoqWnpGO4vIBCcydcz r069ZmMje2qkUAIzpJTb UQukIGW5S60gd3N3 PXVaJVElDUF5cSE0mR3l bGlnbjogbGVmdDsgdmVy oGybYNteNAgaI090IWRu cDsnPlBhdGllbnQg KRwoXIb9D1PkQnukrPO+ UR21RQOyZM51eYWjwGEe t7lgvHn0HhLsYPJuPMU0 rFtfZEwdi1VxNAWy W68bdWFan7D5YOOriEly iCAfNgVbpJD3bY3nLOcp dgdff0kitgwgAgase7qu wh73fS45Q68mLJnf ZHRoPSIzMCUiIHZhbGln ss4bqH1fSn1+PGNvbCB3 kEJ4fK8xVVXtAvZ5IZec K336ZxFgzFMbDrjw j0lji2ysxRq2UiY8HTKo xgQwmLxsHLU7j8XiRs32 Z13vGOayBSWxSUVyBIZp RJLhxAyfpi1jpM0m Ii8+MERaoAV1bQJ6oS6v GgRqNgQ8ZSmdK400DyCg wUZkYenhA21cR3OhvQZ+ EUVkBsx2NOJqkRog ER4zkMGxYQabXg6rVWA5 ZgNkOrHrGRpwA1RxUTHf mabtforppQJ8CFPhXKFl xD25Yf2wyYguONKj xVRGmM2ohbbdh0olxxup FdGqASYyGWi9BUv2OHGh hJieUkIfYXM3FhK3CHA2 lYKoqA4qyCdclgvo kB8aN1OjQZIwticyPo94 hK1iTbVcOdO6AFzvEqq+ D8CTGxzeTN4MM8gTERxv SzwvdGQ+PHRkIHN0 mCqqBCcbMWEdgB6gCRFx F4h2QyXrEfB5CEqbO3Ud HQBnbqltFn01cQ6fOpCq GiC3EApmW9RreyA9 JPOieSNvWMraLXQ3Z01c i0D4VJQoTIRlNBB8nCI4 wU5jhDhvqlufkCPtyLlt dmVydGljYWwtYWxp A725BECweEwaWbCaJyW2 OgN2TjL4H7MsHla4SQCd iBqsCY4xxXAvOQsqSq8d bIfklOzbKQ3qTMKz dlzfWWEckU9bBGVpsRGn mVsrIA5tDVYziolyh525 DkEgCIN6SBJhqPFcY5Lx hE0iUrPuJHSbXJQk E5DtlQHgBLadX193GUrr HmK9LFPqjuAvX3FmLXSi zUxcPnG3e0N9Cy06LUZR ZWFyczwvdGQ+PHRk KAC1hSbmUAgnXGAbwM9g GEAmE6n4MfZiSxD1UDvy G5BsGSRhxbztSg26dT7z AuHuFhI1VSlnX0Zt qfS6HLEzcPXqHFdlMSB1 E16mo6V6XSHmMGFhWNL7 lFP8sZ9nsVtvdahciLWp dDsgdmVydGljYWwt DSffQ880CUGznEkgLx7U AEG5R2HpWtv1GCSdqEzu NJ3rsLAcPHndRg0dqAjx wTkhUO5oMMYlinef UGRchS0gYMSzuKAkaBmo AP4gOAKuwskfy696GkOh BZZ9EEWziYZiV9ZlvF0x NuCsVODyAKErJ5Fa uTJyMFxmW215RHjtIxJ0 CPEmwtTsP8CpHUSowMyb CzA1x2L1Ou4SPMfhoFB+ YB45rk22L6JzGvvf Kcq6EYNmTEV4gNE1nR8r SHZoUVdyt1H5lFU3R5Yp sbBgim3ih7njZWVrHHbi E14diIVks5Z2BNDx rQE1OGAbmMauGvCpbR86 Oyc+VPOrkLxde9CrBamu f1ugc1cxoIt1PsGaXHVv whViwPhqDWB1b9Sh Xq06S32yEDfuSEQiTKVa TWNnMMCqbCbdvc7rdI5d Ii8+GKLzhVS0dXX1lW7l SlOmIiX4TRynZ442 LmRxpGKxPrvxu1bim0ze sHu7EzBaMNOdubTczNwt ELI1p7HnNy06C3XofGkh u6LvBaq8vm77cLAd z8O2mUL6N8PnXCSxakgw zBUeaQqePI0wUPSsdwkd ZBQvoY9vPBOtQ7u2YdXd TrK8CKzaV4OevjC1 ZCVqaZAyAQMogNPYsD8d setua9jtyfsdPcKvKPXt BXg9YRp1WCRxjGmhVhFd VTI1UyO4TDM2wVSf xX5oiBguduhdyC7fUbd+ DOy5d1jyhFAnZE3gfQO8 DB94RH81sWSvf6P4mAY1 J6KcDODeabscyddx aXT3VUMnKVOysF70Ez7u zEmfOk7gOAWeFER8FOMz zWGfG2EblY5sWyKxTWEf JXCmB5GnoITuHAzf C458XDtyHwD9GADgqiTp B3HsHIJudLktDeA8q3W2 Bp4ATN50OG22JO72gEBj z4D9qMJ9L9KaOUNx fjrpqtnbpFN6YNEqAQEs lG07Ds7kfDkkCv1qXAWw XXW4JCWebBQvX2OxhO5s HxSoCIVdPNXtI5Ia sDXcFAaiD417GTzsBmY8 CSExpqKxB3SnOERumKjm EeO3b8F6Ai2EKw06AQ83 OE92nDDsn2U9nIW5 Y5GtAYLeuzpxorojbLL6 AYGeKHUnkT58Kn8dyUtq Xk7gHGYzIZP0EHPisMFd X6OnlE6hPiTvVXGo KUJkH6GimXUsTFqjQ136 JBxlMhX4YBGtfoYfB9At XWPhuQudEpA9l8E7Lr2M ZHwacwy9P3OoSnth dHI+LY48WBUuSG11tSEr jKYua1oijEi0RdTjHTVo TBN7lLebQIzdu4HwEEUx P85esEPmr0G2LXMk bGx (more content not included)... [facility] Coding Summary HTMLBase 64 IhnvxzhfEAm6kXy+PGhl YWQ+GI3GHNDrI26shWPl qX8vW5LLOLiGQckiMTQU TEbYVgZmkiVdGA5oyCWv ZXJu IC8+NN8qUHErSjmiwTQa x9X3aPV4D31fun2oLNlo cWE3APHtEsVwxtbuc3ur fPe7KLjgDwnrOoWp ZINyjS61YGN7wG60Jq42 oDZpzNDit8hvgEe8CqFe BZObZWM2pQyaIYsnx2Yt NQSbA16ebTDmq5D1 IGNvbGxhcHNlOyBlbXB0 uL6yHGwmqcvfx0vkiwxn Ryq1rv77nENxs4U5aSY4 H1AhteN9LAJogNMr XwxkgAPXjL0jlveob2pi oyvpPnUcIGDtEGp9VKu1 ZDBfjFhuNuMiAB32TDY5 MFUwvdFuJ7DnLRKt aUamWcR3c1B6Rr1JL9SP JjuvE5CCNSWILVomsYH+ NZ72nz57Q9FiVuguEfb1 XDYzMCK7qEU1iM2t GEAzGKtsb4R8gTO3J1Jt kgNzer2mw7thHCNqHGfr O88daDEad0W5VFBqtQE1 JKZyhEzaFbPboY63 Oyc+WHOncHidg1FoBtex s1znt5sajXe1CnakUATy tdZiiLbxQPC3u6DiBp6v VDFijLJ0uVM0pK0q ZkHlFaJ2YKguV892DiIx pLIiVzdtI91uO4XhzCI+ VFOgZaw1ANQndFhpKB6j N1NkLGWrmqrdtYCe kCkuIJ4aUCEserufPCMn oY3sPVQmC0r4TxJdLsB2 YOxvL4ScYBMzumieQd24 nH9mCiHmXvY6XTgx P4OynwR0TLQqxMLgYWvs BLD6O70gv5Y7ASPpFDTn PEH4nBC8rZ7elXfoysls bGVmdDsgdmVydGlj ZZjlBSdbQ720CMLvzRjd PkNvZGluZyBEYXRlOiAg MDQvMTEvMjAyNDwvdGQ+ EGSwZSK9kTffMQCx zGIqXQvzMe6eaGhryCvn SF0vSAObpfmnZGSgkY7u UHArsGAwoWoxAO9rBKBd rftso984AyPxTHX5 WGKsqHCyY9CkwV6sJaWc YTEyYZSjI4BuqMDmECwo D424ZMluTwV3KFLuslCr V8PdEKQpaRqwXtH6 m5V3Zv8Zw7QogdvzW4Dt zSCtTcEnHhkgHBb3A4Mr PjwvdHI+VF26MKWfKB00 EWo9MFY1cCeiHLgl GLKsO3SugU1tOgMaKXVq ZGRkOyc+PHRhYmxlIHdp ZHRoPScxMDAlJyBzdHls YU4jHz5gBOEnYJGe mNipqBMkNwLyu4ccCMLh JKacNK3ovAosE5VpzNB6 HLHje5l8Om52Q99pP3Rj dXA+RYAzhOJ1jCX5 oM7vKzOeNrX9SRxiI398 ZuWigSDyLllcg9srk6rx uVq6GmX4QNSogaXylYgq YGG2g1KdDo70J42u IHdpZHRoPSIxNSUiIHZh uYlzlm1neC5sZp7+PGNv gKY9cUI3uW3kZbDdDxY7 VImiN264JyPhwUIs Laabu8gmf8nxmGz3XrCh ZRUllnTyxHqzNSW3p4Nx Iw37K1ExmNsae8SkSnu5 rg81wRJej5Q8hPO2 V3EjJMDbmzinlJLndSag KM4mBJYsosyaDZAjaN1s VWGvK5n0YnNlRsO4YRec Z4JyohH2CPCgkWWr EGXgpZHPiY7lniqnx1hb dnlcGrHuCFLoZPt6JOm3 OCJwfBgvHeKrXHD3PcY1 ECZ6kZXeiL0yhEmt xpgjsV6aLjr+YXE5vZNo xHXXWF3aMumfjXJ+PHRk VJD1rAevTQivEHTwbQ3s BSCrH9z5ZbHlDwQ6 WOupF5PdbpX3XUAkqIDv PHQesPFTkN7qhhxwp2me wgdvOrRaWVUnMNl0FWq7 LWFsaWduOiBsZWZ0 CwM0MTC1rCDfeY1lvZaw yuomlE1rTwk+QmlydGgg TLV4NPj6N4SxKac1CVIb iBzhGZ5vxSZdRHty Ji6iqJlooUszPC5uAIYg ztkwd722RdLdp6yiGJKx vEEzUYhoUPO4O05ao7A2 TWYzIWKwWTB7yKX4 vE8qrUdnrdjbbPDjiFzi krKmeHxwSEooRNldQ950 UAEvnPngPyRuPUx6O9Lk Zrh9DDMbhKkqHD7l uPCaFIdkQa5jfEwueGrl ZI2hADAwdielw855ZuFx h4voDBBogVRtZEybWTG1 D51hm8W0QFJnHLVn VAB0aAX8xD5okYahtzsm bGVmdDsgdmVydGljYWwt EEvwF962QPShpGdmVuZz aRj8O8BwJgs4EERl lZirFQ1uxHHbCVtiNj0b oOntxXllVZ4mIGOcbprb x568KhVnr5ufWPZdyNDh OGglFKV7L14bd0S7 MLRtKTLyIPI5yRR2fV0y bGlnbjogbGVmdDsgdmVy fLdmXOkiPCcdF900OCRs cDsnPlBhdGllbnQg SWqyTPi7J2OfFoxzxTS+ YV43SASwOE54mKOwtHKu b7oluQn8YjFaIIMdXKA9 gHrcUGyra9JmVFNg V01tdDWxo9P4PTUinWoj jGMbIdXrwAZ6sC7kIOkc hmeje6wddeykWistk9fu zk64iK76G15pHAzd ZHRoPSIzMCUiIHZhbGln xw5ycL8cBz5+PGNvbCB3 kJN4yW9mAEEwEtU1TJtb F753HvSuiQOaLmfm f1svc5mwoJe5LcC1HBFp imSnlOgkQDH4l3NrUg22 Y24vBAxfPMPyBAKlRPXb WEGktQkzie6pdH2m Ii8+QZZogRL4mGP4eV5o EcUnBlN3GMwkS895DsAr mPTnKndnE06yV2XzvPV+ KSMxAdu1CLHdiQzk HT0xpLYpJWvyBa0vPSF1 EmWkEuCdPSnyT3SfTFCa qgyzmyedlTA4GACnTXXv cK69Su4edXdtSOAu fXXHlD9ifgmoz2zzoyuv SrWcUEPiAMn7EZi9JVNh kKpzDiKrTQR5KgX1BZM0 pNAzhM4wcMlgqrqd nD2mU2SePCVwbjihJa27 vK3rBpHaXyP4ILqnYfp+ Q7EKMqafPT5AB4yNLVli SzwvdGQ+PHRkIHN0 jDkdABlgSFQknZ3iDAKj Q4l1FtJzOtG1FPmrE6Pb TDKffkmrUw51bM1kQxNh FbX7LBtsQ4UozpK7 ZDEdvFXhZEbjYKG5R34a a6P1EILgRIZpBVG3xSQ0 vO3tuJcmkzjllIKxsOyi dmVydGljYWwtYWxp M944ALJtrXnwVyMvYiO5 VqK7WmS2Y4AjMwp4BVWp yHfaKA9oeNOmZVpdRi5g gFcfaGmySP3lTZJe hkkcGYBjfZ9sTVBulJAv xBmtXN4fAMNmqiwze532 YdLuUBV1ESNvaBPuA5Pq xT7bQlVqPMViYMRk N8KeqNNdJWleP229QSwg NwO8HQAqmaQpJ1AsXYQy oCwvGzO2z9Q6Fw11WXRP ZWFyczwvdGQ+PHRk HOG9uKqeWDnlOWXyoS8p ZGGjR2x8DfNiHkK7IOkg U4VgVDAuukzuTx15mX5o JxBhRdA1AEnfA3Au ykR6NTMooMSzWNexMAW5 U50rl6J0EZMeJVEbPOI6 kID4xB4prDdokmkszNYw dDsgdmVydGljYWwt APntS098INUhwEkfFf2S CFK5G3YfJvb7HNXrbJex WV1klCKfBPawWv4cnRnf bEraWV1lIPBwttvs NTPmtF5cRUKlzNYtjIrt MT1hJJUhxwmrl499WzVu ENG5ZYXizQReM9ZurG2i DvRvXDTkTKErB3Zv mEGzRMqkA195QEgjAeQ5 DXBdilJlA9TvYKKpmMgj DeU1u1M1Sv8GUHtnzDU+ DH21va42K4MhQgwk Hii0QDJfEAF3xYV6iP3a EXNwZVmzw1F8tWG7R9Af cdVora5yx9veYICsOGnv F39vcNWhv8C7OLNi wSN9BCPqdQdbIvLkkC29 Oyc+XSMwxFriy7McJbnq k9ndy0bmlJg7IaZzMOSu ozRryVowLZL7k8Gm Yw50K59vAIcvVDYqPYLz MODkNGKgpElrlm5syT6w Ii8+PHJhuOY9eQB3lR5q NnLtCuT6YRseQ152 FfPheJRsNocpt5dnm8ak jVm2GrXyAEPfdmJxaBma VKW1w9DlSk98T2VpuRgn i7XoTgj3ye25sLPl q1Y7kSL4M3JjIJZvylup uRGhiYobHK8vAUEspwlw QZVugX3uFRJiP3n3YnOc OeY0CXmvU6BzykL0 FQEcbGSjOTHwdAPGwL7q ankmi8aonsrdIfSlYOXj BAw4UYh4CSSvjEubLjTd LEW1AbB9SZY8lEJu zF2ztZlcisxvcQ8fWtc+ VZt2o8wfbGYeZK8wbUY4 CV40XX18bHJtb1Y9wXI6 X7KbDYBammmwyqmt wQF5RKAtXRXcjU91Sr0l bIbuPs1cSLRwNYB0ENOf qDSdW7HwiL9xDwQbGIBd GIOiO0LnwTKqYKng K263TUtiIkP0POIhqmKl A7CcYJDwiXjbNfO3a9F8 Zm5EAU76KB32NU58oFSe q0D9zUO3F2RtXVIi uqfeqhfxqNE8FCJiAOQm kL45Mf6yoXfhMo6pDBOc IYU8MUSojHXtA2BduV9f HcWaCREwJETyP3Cy mODwRVjaE260CVczUaZ5 NIDnpuNaH0FtUJDmuAxv SnK2x4R1Yb8EMy00MM64 ME93vJEjb6B0rLG6 K8ZvUDJzgbkjgjqrsWD9 UQOjGPRbsC38Ji3glTso Dk1fOTHzPIA0OJEmpPCn X1WelM7sDdTnEEUa PYWtA8YlpWEfUTwfM614 YLfoBfR6WWQhkzEvB0Sg GSBdbEsgYqB7z4P9Xe2N FFtical8D2ReXsob dHI+EP02TTQpOW81zBBz lRVap7sawUq4VcXkVVKu XLF8aRgbOQzyr8CkBOUm B36jwCHti8V6JVNi bGx (more content not included)... [facility] Wound Care Noteon 08-12-2023 Wound Care Note [id number]# 1.00OTGTIFF [facility] Wound Care Noteon 08-05-2023 Wound Care Note [id number]#1. 00OTGTIFF [facility] Coding Summaryon 07-30-2023 Coding Summary HTMLBase 64 NbdmszidBGz4qRo+PGhl YWQ+AE3YFTLlJ83kqYBu uY5oQ8UBHAiKJwwjBFQH ICwZDmMiyeHoMT5fbOYa ZXJu IC8+TI8qPMFlLzhpwUIl j0A7hBB0M38ueo2kQNek pFS7XRTyPgUsaaleg3cc kWq4NBkyXywiKxNv QNNewC61VGU4dN63Pk15 wKHdmLNye9qfqEq2TtEh WNTdCWI2wRhgKGgmc6Bf SREyJ38xrGUnq2M1 IGNvbGxhcHNlOyBlbXB0 tX1nMUvgxxprq9ivpbuo Iqd0uj59qDCae6X3nMI0 R2ZeqfY5KPUbhUHd UgyrmDIBjL8yrkraq3rk sngvUzHyYBEbAMr0MTo4 ZIUhmGdpWrBrYU65FBR2 HQOzydLmR3MgEMJl jMyyCiP4t4U6Gr9PQ6TS GbjjJ8XGGXPEBNbnxTP+ ZC95sv64R0YvUrovKzk2 LXTfTMY9uVJ4iX9o OSBzGYmyf6W5sFN9W9Wg seBill3ug4vcMEUfLYto U70tuJZhd5B6OYRicTR2 KAKlpZusZmZutK17 Oyc+ROWgnTvsc9UjOele p8krn6cooBz1NozaXTBc djRayRgsFFU9p9GkGi4h NJBrhJE3mNZ4uP6r NtZmAtJ3HNvcJ073HiRw kTTcRotiK64zR7FzpZY+ JRZeAej7CUDvdBeySX3z K5WzILRxrvyzxERr cIkwWR1kNGPtaychNMDl hM2uFKLaK4i6XtJgTwO5 MUddN0VkLYVpzavgTl94 oO3pDpQrOgU1PExm Z7HozsU8GMJaiGZnLAxn DKQ1G32mn9Y5KIZkSWCt HDS1hFC1qR9caNeqorlm bGVmdDsgdmVydGlj DUnaEDzkZ838YTIakSvz PkNvZGluZyBEYXRlOiAg MDMvMjYvMjAyNDwvdGQ+ AEPuUIP1gBopHQBq jEJqNBatQj2njTqhpTat ES8pSGZeatcgAWTehE0y BSVbfWZubXvrYK6nXIPw dxafo712PpXfKGB2 XGBggMPjB4QtlA0rWbQy GZNbWDYxL4RocGUcSCgv S763UXrqUjJ5QBJwimGk M4UvYMKorFgnCyI3 w7D6No7Ye8OhhsxnY6Av yBDpHeXiWtdzDQy7U5Vw PjwvdHI+KE52XVItNG17 KLn3UCA8aCfcNRcy XENkP8RthA0sVlDtXKDn ZGRkOyc+PHRhYmxlIHdp ZHRoPScxMDAlJyBzdHls JD5gTo0iTTMnJUTb gJguqCAuQiSbp4unOSGl FQvsIG4wpDgiC2AwqKE5 XTCzv6w7Jv14A66cU2Eo dXA+UIEmoDV3pFV3 lK4kFqIlWyA6UCsxB046 CaFmuRXgPfkds7jse9il qYt4AoR6QEKnugDxsJfy MCC4k7KtOf18C85z IHdpZHRoPSIxNSUiIHZh qEmriw6hjT7bWj4+PGNv fEM1qSD9eC7iThBbNgT7 YIkrT053QzSrqSBj Pnesz2gwm0dwhMd0LpTg AENgscYxcKfsZTB1e2Vr Yl31I3RdpGevr3JsDyt6 us80rQRum1I7uWV7 G2RzGFJzjvsynPAamJqd BC0fYXOjfrqgMEZmuZ5c CHIcY3w7GpHhPsL2FQtv C5WwtuP1ATSdsWYr HFHuiQFKpU8nwxggt6oz nlbzHyTpUDQvTVh4OTd0 UZKrzYsyGqQtKTP3HsS4 WCG6fAAifI6hnTck ydddvY5zWjk+SCW8zYCy pRDKWC6sUztwvRR+PHRk LJM4zCmrRAkkRRZzeB1k EFMqT3u1BvWxZwV7 AHghX7HnszE6ORYmcPHj LJBkrOEJzL0irdprb3bn jiurCkGkJNMiXBi3YAz0 LWFsaWduOiBsZWZ0 SgC0RJT1hGKewG9vyNzl dqawsI4cBmp+QmlydGgg FUC6DCx6T1LaQer1NAIg kMpcKW0neFWyPAti Bp3jcFbfoRehLC4jIYJu ipqer020BqCny3iyJBZu zECfNEnsGMQ0K05ek3J1 STRbMXOtVFF8eIA2 uZ7kiRmfipwqmITicKxf qeXkuKtoIDgsPDtdH370 EOGjcTdyUdHtFId1B2Vz Ruc7VZJliKusCE6l kCNzTEyyUz9igZewvKoe XI2rRXIlquuqf615ZnNw a6vfXVEwqCSrMCypOYX7 L10bv6Y4YPQaNWWg DUN2jLG6yL9dnBncqcih bGVmdDsgdmVydGljYWwt WUuzC065AOYelWadQmLd mVs1M3FxUzf8HMVt dDgcTW0nbMTdJCtoDs5i fTdrwVboVL3hOADlsewd v788KtTyy6oqMWBkrQXt KTkxKPM6F50eb3G9 EIKsUQTsZCJ9bDG4cU2q bGlnbjogbGVmdDsgdmVy iGinDUapRPpzC447YUGn cDsnPlBhdGllbnQg UZjiNFr1F6JhCrgbiZD+ QW81EWSvIS90fUWfwMQn i1oqlUj1HvHhYWAjZJH9 kBmpYWscv2QhSWMe R69rcJEpo7C9GWPbiUko aMLwKkMyfDE4eE0bGEnx qgusz1exwcxcWwjft7zl fc09rS76S25uRPca ZHRoPSIzMCUiIHZhbGln gx9fkH3uMc1+PGNvbCB3 rSB0nX2hINIwKgT0JYfu Y279XuBpvRNcMinv n3wgo9rhyEc1GqO2TJQf unAmiBgwKIV9v1RjBl76 E28tMOqeJVFaFWWiYTRz ZMPjqFpmjs5toT7o Ii8+MMWsgYR7sSS9yH7i EjOzTwR2ZXbxL545ErFx uEMgHsqwA98oI5GqtHW+ HNXoBpr7WNMhgDgn MO2iuPHkDZduPl0tCIJ9 SyFiNzKuYPszE3OsAKQm mczbbtvsfZD5AHSkHCSi yD35Qj2qiWutMMDt dXWCeY6ywrejk6iysmki IzOoBEViSIg6ATe3CSAr aFcrNkXwQYV9ZbB7LNE8 tGOgjC5xtRikdhax pN4kO3RwUOSdcamuCz68 eZ4lOjJzRaL9IExjTxp+ E7JEOgoeGB5UM7zAGRxc SzwvdGQ+PHRkIHN0 gThjFQvtKBUdvY9sXCPe H9b1SyUgBaQ8SYeeL4Bn GNIvanmyUc50xJ7iCkSk ZnV3IFmfQ0XliuG2 IVRjxMKoSEpzGQJ0B28l f4O0UZWrUDUzGWL5zVI9 rK2rmIuzhbudaGLqeLmb dmVydGljYWwtYWxp J226MHQboTjaCuCqAnY8 YhH9OgD1P3JkGnl8YYKj uVkaKF7ktSKcFKyoYm3q jEevrEldTA9yKYTl wooxSCQqnK2qTPAscDHl cLzeXK7mWEXrkmift600 SgZnZMV7BDXdsFXwY5Ed jY3bDyIhLPSeSOUk J6PkpJAsYXbnW498KWgf QwG8NFHyobObC9UuSKOv sTmaDxF5r6V3Fk20CBLV ZWFyczwvdGQ+PHRk OYY2gUukWDhsSQAxvM9c OPYkG8g1MtApSxT8JJno V0DtUNVwpcfjOi45uT6c HvHbFyZ5KZriS9Lm ljW0SPJpiRMhMEonHTQ8 O13ss1M6YHXjKMRmKYT1 jWD2iA8sxHifbejtiANb dDsgdmVydGljYWwt EAolQ348LVBxyJotDk2A KUD8R3BvHek9QSXnbEpp JJ8ksFOzOTyoHk8mfMxj tYgzEB0rUPDoseqm AZSgnK5pWBBhyVGgfWbo DP7bOZBpvxlne978QwHd UOY2XNSflIRlY5PzqA2l CoXtCHGpQJOdO7Hx mBDoMHadY024QAlgQgT4 LNTlqmYlZ5IpLEMsmQbi CyK2z4D0Cv7XFDmmjNS+ HZ26mk26A8BoZveo Wbr4IEIzNRO0aUC6hJ6t CFNsBNbft1Y8wFM1H3Dv niPkcq6xk7ufOOBuTZqu M93ngSEme2F9RMGr oTU3EXUniInkByDtwX78 Oyc+FAOlbSued4EbHewq b2tgy3qbmJf5IqQkZMXu ngZhgBchPBF8c0Eh Bo28B40fZYjkSJJoXASq KRXwLNQcuTzhtm5qyF3c Ii8+WVOpkRE0rML8fN9x XxIuDvG3KIzpP206 LrMchKYxMtxri0lwd6vc tWo2DtFnZKUfzcBrdUys SUT9k2CmKw68C4KmsQxo o4HyOoh1is19fSSv f9A6oIK6D4InSSXzhpaw gZBdkQvsKD6oROZxvfjy TROjoS7dWDQzC1o7TgBw ZmR8PHoaG2RnovS7 YCWpmRAjWGFtyGMVkW6c hpugs6edorwuAjXhJTFu WDl2ZQf8UBTgyEvuSePi CCS4YjX3XIW6mRDs oL4nrXrxwiwqtH5mRuc+ VUh3k3oajMAhQB1fvLX1 SV81HX50iXJmx3G0iOY6 U5WgZUXwsdkzwwew kIR2JBYyDWAmjN68Or5n dLhcKp5pAAHnHWH0BDEi sOKqP9FerK9tJgKvPGZs LTTgK3YivYFyXFtw H476KJduJjL2EACavmQr P1AsPOWvmFtjOoY2e3D0 Kd3IAE90AZ46CH71mJPz g1R1dPR5N3XsGKGi gerpfhcobVF2LLMtUEOx vN30Kz1ulPalBn0zDBSo CAX1DSGwbFBlW8CtqW2c WfDrMDJpKSBwH7Av yQVzJExhO741YBgiCnW4 RPMzrpMrP0OuPISjkXxo EuQ6e8O9Zm7BVt18VX64 YQ16kHLbq5B0hPN4 U3IxBUQoqlgccbjqhUR6 KUDuAQLnnU90Wx0lxCky Tq8iCUHeBFQ7OXObjWAr L0FumK3pWpKcHMDb EFBwD1LipYWnDAkvA118 BZqtPtS1NBAvhuLgO8Ac XAXxfGasUoY0x8F7Zx7H KRzfjuy0U0RdAqsh dHI+EY19FHDoIS55qVHc fGOcs5vniIv4SkZgABNv FTD8hSjxUGvun3VxWRLe S14alEWbe6K9WMGu bGx (more content not included)... [facility] Coding Summary HTMLBase 64 IhhqljteQYj0kHm+PGhl YWQ+CM0NIWGbF08scZWk xU0kE5HTYWyLVwlgJTGW NJvWGkMfxcIaMO5itKQu ZXJu IC8+IJ0bQVMzRxgtyPSp z1J1oCN6M74uhh2kBVvf hMD5EACzNkQdxqimk2su eKj3LUfaMoloDhUx DYMaxI60LQQ7tF07Dd84 dQCbiPAbp9kmxId5FlMb OOUaKED7nAyvIDdmp5Aq DSLkY67ppSTla5X2 IGNvbGxhcHNlOyBlbXB0 aC3yJKxeqgtos6almtjn Gfl0at55uOTzl8J4nCQ4 T3PuhtM7WTLkeFBd DqoblEBKkO4hkdcov9sc clroKfCiSBRsVVi0KRl7 VHUjqJzzQjViUG64XTN5 KHUqgnPiA2AlUIIg lStqKnL3e4P9Ng9RU3QM YuivH6DLBXAJJPqtrDM+ SI06fm43E9ThVwsuDsk3 VRMdRTK4rLX7wA8b UZSqENnos4U4fXI1X8Ei xsHnbl3lj8jsFIYkERer O62tnNEav0D0WATaeZU7 MBHniKfhJuEngD77 Oyc+MDWpkStnz6FzFpba m3aen7ljsPx0HssfUUIq hnYpdRgwVAB3j2FuTl7w COOkfWK2tOB5wT7x RrDyTkK4KJhiP772ZmPa jNBvCwphA67iQ5KxnUS+ ZWUpJgm5XJFcqMmqUF9m D4AzIPAtqpzhpDMf tVtaRO0vASEbtsfvXJGu uW7hMBOeK3l7WsLaXgM0 NLynF1PqNVHrqzywAj25 jA4lErFoVxU0EWwj T1DbadX3NNEriITnRMad EKT0U40pb4X2TAGmWUXu UGR5dAN0xK9jhSuwnrgd bGVmdDsgdmVydGlj LJeiVXkfO699GKHdhPfl PkNvZGluZyBEYXRlOiAg MDMvMjYvMjAyNDwvdGQ+ HCQlJRO2xIsmSXKu vTMsPXzlIo6lzEeohVpf AM8nTXApwsuhAGHpeD7x BTQyuNCwnWcvOU5eHXOw onnin796PrSwJES3 YVDcwSPlW8QkdM2dMfYf EZJkCTCnL0DcbFPeUIsr N405BWlyWfT2NJBgglGe R7GoFQDjkAabDdD2 c6Z4Wv2Ds7DcqfwdH2Uz iFDjRmSsBfmwHMx4T6Gv PjwvdHI+FK51HBHdJT91 FXi5XXM6wYydVUni SGQjC0WgxH1rAvWqPFWb ZGRkOyc+PHRhYmxlIHdp ZHRoPScxMDAlJyBzdHls GK8xQy8zMPMkKMSj aVbksVOpFeJkc6cwVRIt KUloCC0evAbpY5RbfYY8 LMDmo5i6Bx45K03lT4Gz dXA+ITCvbOL0yLT3 mM4nQrGvZpB6NQdhW678 PbVeeDUtLidwf1juo9nf sGf7NyO7OJWpmmIxfDrd OIV6v5JeIn85I86g IHdpZHRoPSIxNSUiIHZh sGrjkv5toU7iLt4+PGNv yCN9eNA0eK1cBxPnKtE2 BSrgC794NoVplETq Xbwzt7lni7hzeYr6YqVa CORghbUccFigLKT5k7Ht Su79M0DrePamt5PzXfq6 cv32sNOjz6Y9qDH6 Z0HxBNTjfxrcjYJfjLfm BS3wNRXzufadNGKxjC7z PHWiJ8h9JnNoXcI3GNko S7OyinK2AUYmsBZt DGKpbXQKdN0nzliic8fi yfllZaClKBZlWNc4ASp0 LHIawXbzMvMbFAH9VgH2 LPJ6aCSdwP0usTqn eerwdL7cNcc+EWB0mBKz kBXRAL3cLejrwKX+PHRk IFW0dDapUEucTHLtjT3g BOLgH9r1YvHyVuE2 QVouO7VoizJ6HRQtfAQn YINfqBYFmU9auvbln8yc hqgqWsQpYLXlOEb0ITv2 LWFsaWduOiBsZWZ0 AgQ8UML2gCBzuV0jwElt pucejX8eThx+QmlydGgg IBR6HZz2V4GwKms9IODe bAnpFN0wmXVdFVah Na4fhOnutXjzPM1uIIWh pgdxa563SiPvk8wyPDHq xFJuIXgkXVA0X99kh0K3 SWAsUJDjPMY7fTW6 mN1oeCglojhrcZUjwAfn wlXpiVwdNEfrDUtuY511 VEKiyKzcOvQdCNf5Y3Sv Fjz7WRLslVkaOC6u wMPzVMlmBm3qrNltxJkh IF1gWNEzltgie026BlXp j6oeETDuqRKeZFwvNSY5 V39nk9W8EZApMDHx PUZ0yVB1sF3ivXwxerbs bGVmdDsgdmVydGljYWwt SHnlY553WRMblZuxDzOf dPn6Y2ZrXex7WDSi mQzsUQ6agCLkWAchTa1y gDvdpLaxOB7lOPGjmgpk d340QxXzd0ohRMNvhCBy RGqjMZP2O81zu2O0 SOPkFDCuPPD6yYQ0rX2z bGlnbjogbGVmdDsgdmVy rNjcHDegXHfzR000FKLt cDsnPlBhdGllbnQg ETthRZk6P1ZiAlqgqCJ+ JD93VLMuLB87xPDaiKGi y5rmfIp2FfFcQXFxKLI3 xLktRVage5RjVWIw E25wdWGgi8V4LBZyjDux eOFkNdCndOV1xK4cPPpz jvkcp2wegdqhNfagm1bi gh70eO03R05cCCgv ZHRoPSIzMCUiIHZhbGln fr8hmZ6jQa9+PGNvbCB3 kNE1dF5fTTToOfI7HNnu Y650VeOccPTrPhpk c4wjv1dzpRs7XqF6RVYd dwFiuMlnVPF7a5KlAp15 L23vFEdfHNXoPJMiGTRm IARhdDordv6ngS0r Ii8+TGNirTR2mZK9bG3u UyQpHpI7ADbwT641ApIf sZHhSaemD34aU0LigTI+ JRRkPkn8LETzrQvg TI0onZXqNFulFq3qXNZ1 TqHcDuAiINobF0SeUXRa aafimhbfxXG1EOVcXCWe tP61Sn6rtTchCTJc tBJEpR8gukmjv9cecafh MrCfBPTuTEh0RRc6JYUn zTokIxGlCDW7ErX6NEU4 yTRdmE1zcHfogiwk yN5uW7JfMLGkzgsjOc81 cW0eIfDmJnF7IGzmLdd+ N0BZVogaWK7DH4gRFMtk SzwvdGQ+PHRkIHN0 rUzhETifRLLgsW8mWVOh K8u1LsTeEwG3FGwrO4Uo NJCdwdseEl97sE8iZgUt FmX4WKxtO1WrjeW9 BFOhsLCxSFvhVKA7G75j e9V7IGFcTBJwSYG3uLA0 qO8phZcnzssypUVxuFix dmVydGljYWwtYWxp L581PEKlyPeqQbInJlA7 FyK9UnE6F6UhUer8AWCp uNrfNI5whDAeWTonBs1f hOlsmHkdZU0fIEHa cwipQEFaxJ0lBTHxcZEv zQetAD6oMIVouiokr906 TqHaWPO4JKMcbLKxW2Uu lV2iEiLnOBRxYFVo V1PigEUhSKieR791UHsz NcT5ENOdqzTlF6BmOTVz vKjqGkG9o9Q1Nw07TTXL ZWFyczwvdGQ+PHRk MTQ0cNncMZhrCGUleI8x JBNqB9w1McXyKrG4UPef R6HnNHFjceuzAy83eS3a AoLqWsG7ACwoP4Gr psL5YOFizXQnRTkmHVV0 S57mf9T7FXAsTGHtSNA1 uAB5eQ8paSixteaurZUi dDsgdmVydGljYWwt VKpuU071NCNbyNzaYt0Z IWB8Y5GsVpv3LMIxdCvo NY2ugVFyTZvoOx2wcPtk uTwqIO2uSXQlyufw LJClqV6aPYBmbQOvoQtk NS5iUDJtohqsg210ZqQh PCC2FLTwtYXwR5VjpB3h BjXaTBYiGGVrR6Yx oAZzBSejZ175JBrlGzO9 CTUtntDkV1FcMIHvsYxv KgM5d1D9If4CHVhjyDC+ UB17pa14D9MpPpfl Wof9LRNfYZN1zYM8gI6e FHDvTWxxo0F4tHJ4O4Yn jbAmho4bi4drYUFnJOqm H31mjKQdd8X0MYEg sPT5FKVsiXyaUjYcyP39 Oyc+ZZXpbSfir1XvDclj b0zfo1zpoXm7YjJxSFXs cpLyeJdkBMJ2j4Od Nh43W59wIDsgPLGnFFPx PBMzAYXqpCizbg4xqO9m Ii8+YCBgoIP7lSG2oA0k KgSqSbS9ESijU063 OqKjzESsErthd8xmy9lu sJd7NoBjGFFiisKuhHhi JSF7z0DyVj30U1RpkYuu y3KaXxi9cy77xCOo l2T5hFX1W1JnVHOjpfyn eFRqnTdwVS2bCWHoffpk JOUeoJ2rGIGbW9s9CfMi WlV0ACasV6HzmiS0 FKWlzAAnKHIrhTKMnU8e ifnge3atkiacSzJpURXu VXf3DDe5NRSltYwlOeQz GQJ3ZqZ1PGG1qDVx bU5ntUjzhxalfW3jCti+ FSb2c2cqfOEpDT2lwTI9 PK58PF82bCEgr2M3zYZ4 S7CqTWCegvfmyryq rIB2FOErNEKtuV39Mc5b zQirGu5zUAIpBDC3HSZc pPEtC6FgfN7mYdSqMYFn AHSyK5AgeXIvLZtz N157YCkcYsP2YBEtfcTi F4RbROFvdJngIcL7o9Y3 Uv5WOX48HB19ZA00rLHf h5L6aZT9Q5SaGSOn fadqblpdsRU4EBOmQOQy nK14Xx7wuNzaMj9iBWKq DWI8IYEpxEFjN3CphU0z FhRvPRMnRHDtM7My pKOrFNjkA334ZLzmFqF2 FELahcSuC4OeVSCfaOvf YaX9i3D9Uu2RKo89YR38 DB75zRKag4P0iFA1 M7WfSPAqkqyohlkxoHW2 IWLkNUUxcO29Zx5lpYrp Gx8wLVQpTNO8KVIrpGPt G0AqcW3iPgVuGORj RWUaL7QoaRBfIHzbH137 PXccTjE6ZCSngaEfY6Bk QRPlyRolNoS9t6U3Nn4Y PUqzcdq4Y2TrPntq dHI+BK42BGPdGC98bTRx gOYvu2tcjFl4ApGkXQXy ZXL2xGzaDZscj1UwOIBf C84xcLDjc4U8LHQw bGx (more content not included)... [facility] Coding Summaryon 07-29-2023 Coding Summary HTMLBase 64 AthuptssOKf1cOp+PGhl YWQ+CM4RPXWsX70gsKDb kP9zH0PTVGhNCbsvCWSU RKgWAiZtjyFsCS8vqXPk ZXJu IC8+XY5cJNNaHfbmmSYv e4Z5aXX9Q12nvw1kZLoo sCI4FZQpYjJbacbih7hz pWn8ROmgRhehYfXa RHMddO71RJL6kZ37Vp62 oAZihFJbk8zopOy8KdBl QUJyTUY2xIsiBKbya9Tm IGQiK50imRWfk6R3 IGNvbGxhcHNlOyBlbXB0 tR4oAMfdysyom5wugzph Ifn5ot34uDDns0K1qNK4 W3QwwgU7MJKvoWQc JpzmlHEVvO6goycez5hc nubeJcOcFXXoSMk8SQt2 UKHdiEdwAfVxOQ57VQQ4 SOFeucUdW5DiWMXi tTwwNnC2k0I9Fz8MS1GR IcgnX4KMLJCRPLmycYZ+ MT40cr21F1BpYweiAwy5 VQGhZLU6tYZ8gX6v ZOEqPLrdk8P7vUX0O6Kx zmDrbx3uu4upMEEeAVis T90qfUPdb4U8AZVagVB2 KSStqLqiGbAspA23 Oyc+AEMajToux7NaOcnl d8nvw4ghvNm6NaozBXXh dlBhuNhoYAY9u5GgLl3m RNGkqIS1hOW9hI8p TsPvWgY6UMdhG688QnKs rIYrXrhgQ96aO7ZicZX+ EPXbWfm9JFDgfMxzCB1j X6WsTQIvohaqiYTa eNvzIA3tBJVhuuwqAFSa mB5sWSUcE5d0YqQnKwX8 OIoyX3OdGAYbyionQf22 mU4ePhRtZmT6XRtt V7AuzcC2FBKegXUfOMec HUP2G13hw7U6DJYnILIx CIS0jGJ0pT4fzXedecwm bGVmdDsgdmVydGlj LEviMHkxP347SBVjiIwv PkNvZGluZyBEYXRlOiAg MDMvMjUvMjAyNDwvdGQ+ OGDuQLI0lTxcARTn cQEiIXgiSz2qrToafHwg MK4jWKFxxsbvDTPqoP4v XEWvcITkoXetKW8jZOCs bylcl600SzKsBLL6 MXBvtBUsC9DprR7eOjMa XSTuJRKdO4FeeAAjJCeo I407CIcjFnH4HQLokaVc P0HlPXDkkJdsPrY8 q6I4Hf3Ha8RjxkrqX3Dx zCOwUxEcRxcfDZa3Y4Ab PjwvdHI+LL54BWBeKL04 JTl4GSI9nVxjVPsv BYCzA5LhtZ5qYnLpESLe ZGRkOyc+PHRhYmxlIHdp ZHRoPScxMDAlJyBzdHls PX4dVe5kXWAiTYWs uOboqGZbXpMuh0lkUROw CZmnBW9eeQlrW5GefJC5 PCUqw4n3If49E68cS6Mj dXA+GYDfqFN7xRZ5 jG0tRpKqBmY9UQzyY706 WtHobQCiWvtwz7grq1lt uAa0MvH0MIMnuzGgiFpl ESE4h4YhQa84G23m IHdpZHRoPSIxNSUiIHZh qTdthu5slI7fGu5+PGNv uXF7hST0kX8zIxNjXhE2 IYjwQ931LwZvnHGz Qyqua7ncn7wrwRl9UrKg BPBgddReuKslEUZ7p6Gh Gr69B3PqgUggo3KxZrn2 va22kYRms8T7jFJ6 F5QgMVHsndmfsEFeiVjd AG8lRRYlavfbNOFyuL1e VEWtT9m2FsYmBtZ7SUez O7UqqiV2EQNzbFWf FHOdfFYUmF3liyizk5vr xsdvXnBbKAQwDJx4LOj2 OOIhaQzqTzYfLUO8GnL9 PVR9uVDavF9snChe zzoszX9fJms+LKE5uNSe rLLBCX1dGjdquLX+PHRk JDK7fTydUClgXGUqyD2x AMDhL8e2WjQqPsJ6 SGuyU9NytbM8OYDrvLAn OCBbsCINpH5syqnfw6jm quwpJnJvALHiCJn2DKl7 LWFsaWduOiBsZWZ0 EdI7PVP6aKVfmI7lyXqe mmwqfQ6tFaa+QmlydGgg BUG5YVy3J9QbLbr2XTOb yDtuAQ9nvVJiFFtz Gk1faLlkeTnzJD9bMNGn tlsos456OoUeq1mqBLKj nXSoAHfvZYC7V55uw0S4 LSQeOXNqEFU7hNM9 jR1flZkewkurmAPkkXsv rmBbtCyoBYmmHMidM220 ZRObiJsuImDfCFq9J8We Rbq5XGLoxAgrMD9t yNCvPHplEu1tjGhhaEmz ML7cEXSgkdkut334FzKi d4izKOEkwCUqYKayOWH8 F35rz1T9XFTqTQKk GIP9aXC6mO7xaOxlwrem bGVmdDsgdmVydGljYWwt CXsbZ656SQTasIgxCcGv oPc8Z9EpAmm1PPQn hEnnLY8lhLLfWPatLn0g aEmsaPlaEC1yPAPcmbyc s168WwAjt2dgANThsFZw DRjnBWZ4J06mk1B9 WNHuQYGiPLV1wJU1gB4j bGlnbjogbGVmdDsgdmVy eFigIRxzKHlnR063GQKt cDsnPlBhdGllbnQg INmaTGw7B2OxGdpepAZ+ HU86LVKkEH79gUCaqBUy p1aupAp3GjOiXJWhGJZ5 pWphCZoio0JuCGDh X42dbNBqr8P6AUMduGxu hXSsHuXnaSN2hL5eVLwp vptfg3eudvigKbkeq2we ed39jW96Z44kDBgz ZHRoPSIzMCUiIHZhbGln pw1emQ4mRl2+PGNvbCB3 mTC6aB6oPHHoTvX8OIyk D407SsNsiMQvBraq x0ypq7mnjHj6UeJ0DVXm wsGilIrwNXB5b0SoPj72 X33cHDpzWWXiRPZrBSXv USGqgQtmhw2ffJ1f Ii8+XONuyBA2tXV6fR5o AsIpXsS3HFdhP002EfLh sNMlNxhgG87dF2EoeIG+ EXLwPdo4JMFlaMkb OI7ibVPpBSloGd7hTON4 EfYcRfHqJVbyN6SfIYUy ngwctvlgxET3HTPaHTRm kK89Mj9spQomHLDk wCZPaM0sbzjak6ksotiu TlGaFOEnNKd9OPr4HYAa oFgaPcWrXCI3HmW7YTV0 jUGxeF5aqAdlurrc cA2cI2WrDIWhmyjlVv50 rE6eArNgOdD6QMtlXgl+ Q9MYYydtTT8LN8bTZBpb SzwvdGQ+PHRkIHN0 iSxsJTthXMLhuZ9jFLSu K7u3GvZzPgQ0OEfuR7Td ZYDpobafVf01wX1nBaHg IsH9OAibE5VyudZ0 WPWnjCOtACryAZW8I52t l2J3RISgVVKuBRS6dHN2 fY6bcCgsrrhrsQYwcDzr dmVydGljYWwtYWxp D386ZQJnmEsoBrGaAwX3 WxA5KfY8N0UhAiz9TYGe pLaiLG7muJKbMNktOi2i sRtaxSdcHA7pXAMw ekedXVBhgR4rSRNxrCZe hOfwYG1uRQHswoqcq999 DvDeQXT8OIZfdABbV1Bo bI8dSxDuDUPbREId J3VoyHKoYCfoW334YYfq YpW7QNRvbpDbS1OoUJEv kVcjUdK5q0N4Os31HYOW ZWFyczwvdGQ+PHRk SBC6sIdfFGjnMPIjtH7v QQKqY2g5AaVlNxZ6QTij Q7JqYOHieuewUl12aP3a YgXeEmM3QDwxF1Wv yhH3YJGslVDuBLowJAN8 L31fb0X1LMKiZXXeNUP9 vDE3aC8wyXkexejriHGn dDsgdmVydGljYWwt SXztX876FORatTltAd8Z WUY4T3YoOuz7EEXzeRiq JF5wpVUdVCsqTk3bjKdb pLwaIB0fGRZrylyd FPLjyR5iLZXumAOoiPyd FB9rNYXeospfe117PgGy AHN6TKNziOLgK0JmiL3q JfKyCSXzHACcH1Me iGLiIDvqE986LIarPxY5 SOVfidDjE8VjTHHlhDqf FbM8o8M0Rg6GELrepGR+ CC01bp64B6BcLlqe Aoi6IQSoENV6nQD4xB3b VVMmCElqj9H7hIQ1H9Yw hyEdka5ig9uzQDYrLOzz X13qlEJzc0K8CDOu pSD1PQBthGkaHwWzjG66 Oyc+IBGcmPesk3EsSfrn r2lxm2suvPu3RgRdFAAi jeAvuMfrGOI7d7Qz Qp31A22iIAchEXAiNAZy SMNrSELroBzftg9qpV7k Ii8+YRRekKF8nZJ9rU4s QqSgEgS9KQkbQ243 MqLtuFWgVctax3aww8de zQv7YpPjAEObaqAeiZph ORV9b1WlRt80Y1TcaZax u4PxYxk3ms22gOXa j8M2pPA6D9MpJVIqybki kVXfjLslZM0hUYBwmjnu DBWgxQ9oOSQxX8s8IeGt RkS5FLtyO8RqdhW7 BPEbwYMbZBDldIORkC1f apjvf1tpvtwcWbKlGYHg BDs5ACq6WKKffWqcRcSn SWD4ReH3JBK0kKJu mZ8jsNvvxvbogM7vCta+ CQh5u1fneOIdWQ5xiEJ7 MM29FL68iGUng8Q1wBH1 P7MeAOZhqeuywtck iZT6YBJpUREnmY30Zq2j iOfjOb2xJVInIRV4BPOz rUYwV2UicA9nLoRjZXLx MCDwY7PosKQwAEmy H505IRxdAnP3NTZkkgRy F2CuLOJvkCviJgI5x4C5 Vp2AVA25MZ21FO28ySPq b8M5lVC9W9MbQPDk fvjhfmnfuAI0JNXeVGQf iY44Iz4keNkhKk0pBPXz SYP7CQCxuABxH2YdgK1q YkKyPDZrEUVjY1Ha oSAuFZieC042LEfzIiA2 ELUrgyFuP6DyUIKhwUza FfH2q8R7Ne4RIg91QS83 WN96pRNyk6G6zTV5 O9XcADDxgtgiknxsmWJ8 SPBaSINkvC82Kv3xlYsy Nd4mVLDpWUF8OCWdnEEu K0XltR1zZxHyXCPx DMOeX7GbwDEjFXdtK417 BPvuElA6NMBwuaDkC0Ly VYKxoJyfQaS7e9S0Nc1J MBjkcjw8Y5OpYpby dHI+SX35CBPbBK49cIAm eWGly7myuLw4PsUoJQKo LJL6eYnjHPtir6DiLHXx E31xhHKoa9B0IKDx bGx (more content not included)... [facility] Coding Summary HTMLBase 64 AygslapdBHm3aFi+PGhl YWQ+CT3JCVLhN02nyKPn iF7gI7NAEJgVFfwnXINA KOoJVtDuxcOnFI3doIOa ZXJu IC8+DH2oHBOqOwsqmSFd y0Y8yNZ3Y14xrr7zLJhq uFN5QZPqQtWjowlwg6rh oOb8MYqwCqpmLyBs CZNrkJ13WRY4yL85Sq07 yGRrdDTdy7qzyQt5MoPu KYDlMHQ5iKwrGKvpr9Nh BAKbZ96fqVVmq7G1 IGNvbGxhcHNlOyBlbXB0 gJ2nKDpuqvxau2grsbhn Tmv3qp60tLCtk6J9bPA7 T4MbdkY2KTOzbXYy IxpcsMBMaG1kpvbia7hg rznkUhReVKPxPLz7DLx3 FAScmLypPcCuWQ44CBQ1 EJNjlkFmL7RlMOQx bFpoEmZ8g7F8Bl0KS9GT EnseO1YCFKXWHLqgsXL+ US19oe66E6JlUpfrUbc4 EWYuVCX1wCN5sD2s WAVzOKhkg3G3tDK9O9Wq ltPvhg2dg7gtYOKoFGkp Y15tfLMgi8E6YZDybJQ7 PIGliXhgQwNioG18 Oyc+LBHqvTwsr6RsIetj d5djt9lroEo3LnzrUPBj nmZuyRyuASY8x4UeHv5k VCCapHV7uYG6zX5a DlTmRpO8WHszQ983SyCq fHPqZbskV54yB1ZswHO+ YMXwOet8PKLtjOtyFL0p C3FgBEDnzsgqhNJz fBayGF2sYKTaizwpKMUs fN7cHCArE9a4JyArBxC1 PAvoC4YjIWLyctunYu12 oT8yMnAkLnD9HDvz M0XhmzF1RJKemVQoIRul RPX4U47rv7T2JUZsTVOw XFH9qVH2vK7qwXrvyaud bGVmdDsgdmVydGlj LGcgNEdlS039PHQrfAoi PkNvZGluZyBEYXRlOiAg MDMvMjUvMjAyNDwvdGQ+ OPCfXSR4uBqwJFRc uZZsYYqzEj0olVjueBcd LI6aCFOcmetpIVXtnC6d XSDnsBWcoEvdUN9aDNAh ljuqa779WtOpUVF0 FNJgeZMgG2NapE9pKiZj IHYkIQAsG6DkbRVeMKln S966CErlVeG9WNXdrjQh Y4AhHOUqoVmeOhX5 d3L4Pp6Te8JwiklaI6Jz mHPxZxPuRzvhKHo9M7Wd PjwvdHI+BU21XOGeLJ49 MXd9SVZ0mLjuTBbz GFGqG3TuiX9pFhMtTIYo ZGRkOyc+PHRhYmxlIHdp ZHRoPScxMDAlJyBzdHls XN0qCd5hFSLkUCUq dEtfwQZwQdKmr9jhOJIv GHrrDD8hiHxcT9RzvPU6 RWSqo9a1Lo56O94tW8Vm dXA+YLQseJJ7lON4 fB9kFaUvCyQ2NFbfR956 EuYaaCZsJyxoc2edp6lw xFc8NaT2BXTxwqNzwXvj YWE0h7UiRc71T98c IHdpZHRoPSIxNSUiIHZh mOvtgm0nwK1mBj4+PGNv sJE7hOZ4uV4qGoHoKnK7 ZAheO831JfImbITt Uvmda6hso7espYa2WdLk PIEeduWwkKbaALN4k3Sh Tu20F5OuhVciy9MeXbq8 fo03lMFvn7B4fMC4 V6CoNUNvnrhndCIsiCge QH5lQHEovrliFXFuvL6s NORvI6q9QqRoFeE0PKtz C4TbxcB5RNBdzAZu PHWogFYKtJ7jxiwet5qo fbwdYxKlQSItAZo5ITq3 PVNweAbqStCuYKP6EjQ6 UGT6iKLwuZ1tyVlk herjqZ9bYlm+YEX5pMMh uCNQXL4sZkxhdYE+PHRk WKR6dGyhXDeoTNHowL5m GIJiD0f1FcQjSuS7 HYagH9DwhmH3RKTysPBt QCKfxWJSkC9lztiru4ep qbtiDtJiCOKoJLx0BSs0 LWFsaWduOiBsZWZ0 WbB2ZWQ9bLPijO7boNsq axfqmN9eNlg+QmlydGgg OZH8ZXl6E5LiRfb2YDMs tWuoPA7gsTPcMYhd Ot4atMluxFsbSF5yZUSu nddsa739GmSta1zlBPZo aAPcRGlwPUW6P59ic4T6 WXDkIWSzYZY7jET7 dM1ojIgqbawxgMCmxMsk tbBevLgrYKrsAMqfW624 UDDpsQjsMpWzVQv8H8Eq Trb6CZAcqPtoOB5z xXEpQOotTu4xpBnssYsu DF8bLMDfodhci556PrFq o7adNFRjbOAqQWqvUVV7 J53ua6N7VQFhMUVq ZLK8kWO2dK0qxEnfgxms bGVmdDsgdmVydGljYWwt TRdhB211WAWxoNzaCmHf oHu3U0LcAsr8BVXq xFxkCM9mwSXbNLzaEy9w uAagcKfwMS6iIMPnyriw r526PnEbw2pfMCSllMSl XUmuRSZ1T48uv1Y0 GYLpGKJmSLD5sFN1kA5u bGlnbjogbGVmdDsgdmVy uWobWHpnRQbaP684QQVc cDsnPlBhdGllbnQg RVugNWg4V6WpLygvcHT+ CV54WTPqLY22fIFlbGRl p6uzvIc1FxCmXTCpPBS7 fXllXPrjb3VxLXFn Z28szURev4J4HRUucVbm jJYkEdVwdMN6hJ6sGBai unnxn2ynoopdFdtmt7yj ei34lQ15C51aPWbc ZHRoPSIzMCUiIHZhbGln xd3bgB8qAb3+PGNvbCB3 zRC2gB1sLPViByX5HLfu G363XuEjuFVfEylv g5dvh8ziyLk6NtZ3EOMk wyWnhObmDNN5a9PhPo43 C66oJYftYJRwIPVxZJWe BLYtoLjech5dyR3e Ii8+UFZddFW5sSA3hO2r SlXqQwU7XHxgW484BnPq hSYuJnbsA76oX1VllTG+ RIFlYfs3GFUaeGfq WP4axITpYBwwZj5uSQB0 QtMgEpApIRggI1EgSXLk zqvqlvqyiMK1SVZzLZCe wU41Wt9kpZvvNIUs qKMHsO8qroaky3bnlotu RmXbJVZuODw5BMk8IIBd cJluHoMtCRO0RlG7CLI4 aPFzaA5kySctefge xT3iN0IrIKRveozjCh34 eJ4jMsJlHqY2GLsmTav+ Z3SOMnlzQU0WM7fJVTrx SzwvdGQ+PHRkIHN0 vHuxAZxiYTDetS2lMEAc N5x8EhTeTwJ1WOpuU8Oj RDAlijswGh18uX9pAqEr EiQ6FOuvO4BkjmL9 IMQsaKSxHCcuPGO4X66f v2M4AYSrWPClWYR0mJE5 tB6ikPqfduzliHHfsLgk dmVydGljYWwtYWxp T633APQskUcdDxUeMkD8 RyV0BnY7R8PrHpw2YUZd pFlaTV1bvBYfQGxkXi5o lTvcbAkbMY9wTRBh yiypKIZslC2pPADzvUMm bEwiGB9vVCBljmbyt578 RjKoDNF1NUTmcZXaM4Ob zL6wHvWkUPZiJRYm T0SfwLUwFBinV585WEeh LgO4ZPUsbvSjV0UiJZMw fElpLbM1s7E1Vl29EMHU ZWFyczwvdGQ+PHRk KAH3iKmuLNtvQYGlqT9i LRNmR5n3WdNiJeQ9DKoh Q6HgUSGpisjpFr94cW7a AeVtYiD3RUmhT9Lu laP4DCZmhBJjKUhsSGU7 U05gz1M5VZTvASNiZBY1 gLG3fJ1vzUwbetzgxYTi dDsgdmVydGljYWwt AFvyZ669HFGbcUgnYs6U AGW0U4SuCuq3YFMzoZss QK4ueHPsLIvdBs3ifEyo sObvZG5hYGAezhku WJHgaQ4uLYKrkFWhoZxg MR8hUNFhfxuxj367KgFx MYZ3TSFnyWSfP9MhgI1i TsJhKSDkZLCwE6Pl qLVrZThzN883PQvlWhW1 VJZwwuCzW2NiQKDlfDuh HtD6z4T1Xc5NEJwtuCX+ LX21vc22G3ZxQpwu Mpx9FZDbNNM8lMO4fH2u OPThTPpvh3C6qZH1U0Fw wxBuvi8bh1gnZKYvODjn W95baANes0B2AROp cQI4VKNloSraIiDxuO22 Oyc+SDGojLpnw2FdRowf d5cyf7vobNm0WtDuWFRb mjOnqEnrEBZ1i6Bi Mt06X15lWFwiLEUuEAMs TCIzPOIhcMjcqj9gtZ8a Ii8+HCBsnUB7xAG2uG4o LmLxCoZ7GCctJ013 LuXvqRQuMdngi0ktr8ig jOa7SrJkCZEpbvXxrRil JBB7b9RlXi78M0ShgNjq p6XwQbp6nm53iZBq h4Q7yYB3O1HgAYVlrbyt oPTzaNivKG3aIMFztoze OHWmjD8fWPPyQ2o3DiQe PgS5CWdmC3XrauH0 BDHutKImJQFdhJYBeP0d ivavh1sypzkzSiUcFMKt FNm1TVi0XYExiXkmFgDa YBG2KlR0GEW8wVDc vV9ncFvqwpattC7nDqt+ ERs0o1rciXJgNW7swQF4 FH01PX60cSCpq9O9cPC1 I4ItVTDxvceamryh hMA2TGVeGARhbC12Zq0e iXrgCo1iHJUjHWU7BZAg lSQrL1MlvJ4lJgFsNXKg PDMlW3JjwCEqSQdg A446SPjjEdR9VKLnbzHx F2BkLLEbzDvuTrR5z5V3 Fl3JJI68OS75YJ69qNZe f1X9gYW1F2LfIQKm uswfddasrJJ8RUSnBNWz vQ90Am6ycBbjIe0tUGBn LVF9LOPidWZtB8RbrO3s EtMhANTrUWQuU3Mv qTMoATdfE697BSsvZmK8 LNWpkdRuB6DtVJBbvSdm WmU3t8B7Jv6WJc80JF71 FO99dVAzt4D1zVS5 I9FsPXVduegmxpahhPO0 PDQgZUTtgG07Se4luUmc Hb2yJOSzEPG4LORmlAAx Y2UsaN0aDhYtYPDp LOFdG3FucERmNLniL151 ZWifMlP3XZYzrwDbA8Ck EOSpfBcmEoE4l3Y3Fp5H HOhkxmp6Y3DnMtep dHI+EF85PHPrSM42nLOf mLZch7ujhOy6JyMrJUQq DRN8kOwlZPqsq7HiRZAf R62tdZBta2Z3ULGc bGx (more content not included)... [facility] Wound Care Noteon 07-29-2023 Wound Care Note [id number]#1. 00OTGTIFF [facility] Coding Summaryon 07-24-2023 Coding Summary HTMLBase 64 ZytzeiwkUGd1mLf+PGhl YWQ+PJ6APZEyV57otHZn lM6oL0RDBDeJNlhpCUAX MJaTJbYduySkAX7paBSl ZXJu IC8+SO4sKXXyKaibjAQh n6G4yKU4E28hje7xLFzd aZO9YPVrPoWtkxybq8xr cPw3JIaxLwijOlSt VVKzmW97IJU6aD09Rn89 uHRefZMot0jtcAi1SzGc TMQuRYA7oYgmWFlim4Md RJHkZ20yfNZce1J2 IGNvbGxhcHNlOyBlbXB0 mY6gBUcaewtyt6yawojn Hbs0ov69qJRib3P5lMX5 R2LvurO8UBDjzXDz HsfhbBZDsQ0latwjq3xc wivcTmMzCAHzXOn6YPn7 HBMbcUcdMaJuZQ69SUU7 OPFgriOhX5ReZHVe rGgwBeD9u0D6Dl9OC9WR MwczD3FFOEOEEKsnrGM+ GW52po54Z7CiSzqtAhe9 TZWyGJR3mLE4mP7a EFPsYHhay7D1hUZ3S3Ho klJxuk6ss4mrIMDfUAyl Y66vhTNxr5C3AIYkmPF1 ILGveDfuViMeoA42 Oyc+OIZgtKkct7UvLynd r8mwi7ffiBu4TozzUZWu ylOyiFuyRHB3w3KgUn6v QRAhpKH7bHR1uI0x YcWnSgM2PSsbH826RoAr xUZnIvbqW41uE6JlqHJ+ RAZiDto7JSDszAqhSR4n X2BnMNQbnittxFHk aSayTT8pHZYscjngMHFg aT7yZWAuW1w3MlRhLwV6 NJwlD7DwLBXhyllyMx81 hJ3xZgPxCjJ7PYik C3SxfqD3IRKvpSAkNEyu TXV6M29bj1P5DEFlJCWr XMI1nZP0zR7ouMxszgvq bGVmdDsgdmVydGlj KLnaPXykL599FOBicAek PkNvZGluZyBEYXRlOiAg MDMvMjAvMjAyNDwvdGQ+ UCSyPFR9zHewYLOi nESoLHezZa6keJehqZnm ZA1jDYAvkzoyIHPaqW7y ZQIrqZDrvAipSG6fLOCr ogvbs496CqJyLBK8 VDDmyEGsI9QlkC7lBlYu DRUxRGBqW6LraAZzAGvr Q055QBrmNdR4HBUiaePv O6KsKSXrtUutPtQ0 e8J9Ht9Cw7AwwuyeG5Qg bTBzGaDhXtgcHSo2L6Ax PjwvdHI+XW17EPCuVX50 YDb5UDE9yXnsNXwp SZJqF0DfvU7fGvLcGZIh ZGRkOyc+PHRhYmxlIHdp ZHRoPScxMDAlJyBzdHls BW5qJk5rXHGiYURb bOpwpZPoFhDtj1biOLHl DRbzWN2ltTsfQ0FakFJ3 WVSgv8h7Lh74O29kW1Yc dXA+BHXifOJ0lFW2 nR7dRyKcTgJ5GBsaR113 LbWwcORiRzijh2vaq3um mQs0EtY1SNXoipZsqBid BJB5j8DlIq94T41d IHdpZHRoPSIxNSUiIHZh tUdpbm7xqW1cMw6+PGNv sYY8aRF6uZ3jZxPdXlK3 LUmlS774RlMbtVWi Bqeiz5utt4nznDi6QmKm RUIishHliEtjURJ2z1Rj Rd25J5IgnZrrh5WtJiq7 gr88sTMkn7W2sOY0 K2IdYXDjvcigeAFpuAxn JR5nTVUmjhfsCVJhhE4l NWDmB8a9EuFbCmC4YDfz F6HuurJ4DONrqJCc FSNrkEOMvC5dqypeq0pv lhjqCeHjJHCbVFt1JZy0 KSXcfMvuTuRoVXS6MdW0 OHN8oCDkpT4rhGwr isexfB9mMwq+SPD0rPRl fGPBQN0dLpwgsDP+PHRk HOL0vYknDTroWZVhuC6g HMJaS1d2FkWjRcE1 CSiiC3MouyS1EIMbxRSp ADAkvPGEcV2zbcdjt7rc gnvkEbVmSXXrRNf6PFt7 LWFsaWduOiBsZWZ0 TsF3FFD4jYHvjQ4adPdt kddvmK3jNol+QmlydGgg SJB1MLt0L9XdHhm4NUIs pSyxWL2kyUVmMYng Vt0qkJaraTxkDS2uRHRv puonx245EmBsj0ziDBUb hSWpUHmmJNZ0R56fe1L6 KLFfDXLpVSV6rVD8 wN2bzSwcfyhndQZrjUcj knEwqMrkPLdiGMohL983 XIZesGqbYnLnUEn1Q9Va Ftm2FYHlsEmgFA6h aYHbNUprDr3isVnvtJto XM5vMAPgkxqoe378HwXp k9mkVKXcfDTkYSbuVOH9 K71ui4G6SSAbYBGv ONS7wUQ9jI3bsEkqmpic bGVmdDsgdmVydGljYWwt OYibN177BHCtuKroKfKn eDo6I3CtVlb1UVUb aMabHI9rkXTdREhoHx4g oEofuMpmNW8yZJXcbcim k762SvZti0pbWJWhdZIe AIfyDVZ8K40mw7C4 UOGhVDXmQBR1sOK3gT3r bGlnbjogbGVmdDsgdmVy pQluOVpuJZbgW251JAAp cDsnPlBhdGllbnQg IHdnEVu0I9MmScnwdNI+ VR73ZAGdHE72nSJmvEHv p2jzcBu1RhYaXRUtVXM0 eExwQAxzg7MzTFLp V61raBNrp9O6HZDfqZxm hFHmMgDieUA7sK0zUDjz pbkle0gcagltGtekh4nq fk28lA06Q90gNFrr ZHRoPSIzMCUiIHZhbGln ix8ecV6bAy3+PGNvbCB3 sOD3mT2qOEKaGjP2ILuk L638CsPjfRBnNigc v3zjv7ezhGi0NpT7GRBs idOvdPhmXWH5k0LvAw41 T20sZKctEHPhCUYeCURy YLBpcHkloq0daW4o Ii8+NNLltPS7bFD1zZ2n FnOkNpV7SQqnV742VbFb pXBrKqeyP40sD3QkgGF+ HCAyTpz4ZJWqiXmu LP9wmPLeHSsiOh5tMSS7 ZyMcHpLyTJimQ3VmHKEp krzaymoztHJ6LJMfVULi uD65Id8pnPnzZQEy vASHeX7fzeoqg6qbervf ItFwYEGcXFh7QNk8PNKg mQnvArMmHFB5GxE5XNN9 dMClzN9wiEwvlqzn lE3aB5XsPEIjfdhcNv22 kR2eNjEzRzN7LBwhAxu+ S2IICoyhQA7NL7wGTDmt SzwvdGQ+PHRkIHN0 bOwtSXsbFNOwmF5vEFVy L5a9YcDoDwL9FUvdR7Tl GOWaxfhaUo89nG0vBfRe SbS7TTvmQ9OijvJ5 VVMpuEDrHZvwMKU4U60e q6Z4KYAgJSNbPQN3wSP2 fU9meLqvxrgstZIyuXep dmVydGljYWwtYWxp Z261ZRHskSryRgAzXwQ6 JoX7GpF2M7HhWtc8TXIk bIvpKT2qqDTrSCjrXv8u lYfusTpiBN4rPSAv azxmSTYahD7pWGZzqQFg lBelRQ0vGFPweiwbq603 UnUkISN8UTMaqBYrZ0Fm uQ7jGiSoEOMdIJGf J6TvwCQoGUluK529GTyw TyQ6SLMcydTtZ5DkWKXm zFrdZiR1p3Z0Ei96AIUF ZWFyczwvdGQ+PHRk KBA5gRwbVPpgLRPdeO8c YZVpQ6v6EnGcMwU1WIge A8EpXUJekaxiPw41vV0c QdYrXmR9PToiY9Nh xjP5KQBccBNmDAggYBC6 N65sm0A5WESlSPCpKZF5 gPM8mC3jnQahocibhXUq dDsgdmVydGljYWwt PRizU070WDTujEuhGm7Y ODF2E4XsIxd2BLUlqGmv ZY8rrFBvFNqxOp5lmAaf xVhpCT7sICVjzisw LVVvtM0iIGVyoGCsqNkm LX5aEGHgzyqjg610DiJp WET6YQDdcDBzX0KajI4i QiLuKCEfIKPkZ5Zg hHKlQYlvA878ZLwxRoB8 KHIdtsUlN2DhOQTkuBrk NwF8z0O5Zj1LSVbinBY+ CU59du17N7JzAzzn Muq8BKFwBVR2lUD4hD2m KJYhHMwwg2E0wKN3B3Hb uiFmku2iz2yhJZUyHFsh X41ikWSdg1T4LIRk mWY0ABSgwEomQiEefC51 Oyc+MGCnsCfui3NrFnpf z0pdt5udvSm2YbDjYZSi wlCwfRfoTDH5d2Xq Qd29T32dXObtLWCqJLQy PZMqADQeoFfhvt3jnV9c Ii8+PNAkoFU1bFW6xL7n QsRrRiL3OKmhP903 EqOfaQBhDhvci9hrf7ev rJq6McNmDTTviiPsgZmr AWG8f8BwQo71D2YwdFgo j8WmXgx8ac38sXRz i8N9nRN4Y9YkOHEspryu iIFdeCcqUH2uMHMzvcae CCPnhZ0bGRUiL5x9WzIc PzO9MXvjS2AjteZ3 EWBzuYTaXTKjvMAQzE2b adzxw3byeidkEoKoUIGx BBt0QHi5BYStrSpfCyUb EJQ5UoR5KAN1kFOb yZ9prFnvcabwdX6iMzc+ GQg9m1scsBArQW3umTK9 NJ07DH73xSGsv1X4cWC3 N2XtBNNspcdefgrb tGQ0JTSdOXBlfR56Ev5v nKuhWb5uPKBdJZJ3JDYk zXBhS4OstG8jAhHuVTYg ICQfC0HpdWNuGCwp L399OEbzThO1GDRooiQk D9ZuADAyfHcuUqZ0b1N3 Uw2KFY79YV67AR62aCXx m7R7xIG4D9JnUPAi mvdxiamekQT0XSEnDKRy eB15Oe3aaJarLy7cRPXx UCV2OBFotJMlX3AshE5z FbNiQDVdGHWeQ3Ba cTTuFEjgE378OIrhKvD4 CHQsoyQiN4GwOYBwdPaf TsM5o9X9Xe1KFa35TR95 GE03eTCco0W8jTN3 O1XfTHQliswhumlczMH7 LAAeGCYcrY24Ap2geJhd Pq4jIDYiTWR8SGHvmKQl F7LxlA1sPlRhAQHf UDEgX5QruRUuDXxeS441 MCliGkR0WWFbhzCpQ7Ic SPKznIfqCsB2p6A1Iy9V KLrntrw0Z0WzCoye dHI+JY22WBVpEC81iYLb hCHwi9nibYm5GmFlVLEc RPW6lXmhQLvip1KfZHLg J90kwSUzo8D1OUTq bGx (more content not included)... [facility] Wound Care Noteon 07-22-2023 Wound Care Note [id number]# 1.00OTGTIFF [facility] Coding Summaryon 07-19-2023 Coding Summary HTMLBase 64 NmdtbgdjUHt4uAx+PGhl YWQ+TU5VADBfL30wuHZo kH3rE8LCLWaPKggjWMZM ZJyOJwUuloFvQB5lvAAd ZXJu IC8+KG4mIIUiRxvouNZs r1X2kWU4M48qiq9qLEap tWC5AZJmEzZattlil2am xHq4RXefLdsjJeWl XSWtnI44RVD1mY92Ud04 cDSduWKzr2psaIe5ElHt WHGnQAP6tLfuFPfhy9Pa QBFcU76ppULul2T3 IGNvbGxhcHNlOyBlbXB0 kI3sMRfpczvlz2sgpezd Ymk5ei02qMBjr8W9yCK6 D7MtysY0BTPhkOPa NgfluKNNyB2gfzwfn7lw bqewKhZhFHHgDGy1PDq9 UVJlkXlaDhTuKR44WSK1 JWKigyVkR5NnPVCb dLbdLeT6y6J6Xt4XU8AZ PkxxE3YDPMAZFJnrlOR+ EK95af00M9LvNzonDwy5 ETIySTO1oVG2uP6r FITcTYrsq3G3bGL2J0Nr ufUchx2qm3knXSTsNUzq T12mqEDds6W6CTFdnKH2 TEOmqPvjDwWywS47 Oyc+BTRqtAtla3WhFyph y2rhb9fxoIu5ItioKOOr xuXpfWjiVCG9b9YcIk9p GHWhnFU3uFO6oD3c QhEkWoW2OOnuH860YgFf tCSyRmheP36zQ8XtbFH+ IELhCph1YCEwpOdfSU7a W7RlYFIxlfrpnBNm iYzuEJ9kUIPznvixHNWi zD0hZLDnL9h0PeRtVgQ7 TPyoX9ItUSOqfnifJt01 rS7gSyBxMjC3AArq G7WbjkQ2NIDibRLsHEsu HUN9A49wb9F9DAQmFWZf PHY2hNX0qJ9iiGiottmo bGVmdDsgdmVydGlj SLkdLMshF098BXXieQeq PkNvZGluZyBEYXRlOiAg MDMvMTUvMjAyNDwvdGQ+ IQEvWBC2jLwkLDEo uZGpCObvZm8jsZdwmAyw ZC8mGILpoqxiIQGycB0n AJWyoGUwhPbhUB1dCFYv vqrlb402IqShWUU2 TWSatQYhJ0NvhC6zDwXr IOZiFHDyP2ImmWWxRUop W333YWmnHqZ7HOTkpyRe M8DeHNEghTieVoF1 p8J4Ft3Sm2TubtfnM9Bw aHBnFpEhUltjUOn8U7Mr PjwvdHI+UV70QXJtDE46 PBd2ZQL2cYgwPHte BQXmO5IumJ2xQeDgCDWf ZGRkOyc+PHRhYmxlIHdp ZHRoPScxMDAlJyBzdHls WZ4xWx0eBMBhXVJh aJljrPPkRuExz1goYXUw HKgcKT2taLdvX4CzxDW8 HBFyt2f1Xx54B11vJ3Qc dXA+DTZgvMN3bAY4 mR8wIqWfDtO1NBecZ841 FsLxcSDeDtiam3nvk1im vYy2BxC7RLGnktYvqLfn PHV0k9MaKk49T39h IHdpZHRoPSIxNSUiIHZh cHfngj9leM3pJh0+PGNv nRD4zJK3bC1nWvMkDtJ0 XRnfL239RzVamRAi Oodxk6ulb2ulvTw2PnTx JFOcmoMihJqxCKX5w2Oj Om39U2VahXsgu4AqBzv9 ou74yZCpx4A1pDN9 D9HlFHAtyjpstPXtuVie SI8uPGYbgntfJDYtdF0k RLZuL7t8EyOfPgV0HCgj D0XifqO2VPZduBSm SJHmiUVAdG6yvdhbt9xa xlkmCtIzMNYkQSn5AEc2 BNCfkXsxWrRlOTN9JpV3 AJP3eXYuqQ7mbBlt pjmcmX1aYhm+SNF7kWEk cXYGSP9aRzjfbLR+PHRk BWX1vIdpDMzgAELfuI7m RQTsX1c8AbWbHlX8 MNjoU6XiroL2QZIxxSPs TXYcyNQOuJ7ampvfu1sk blwsIfUmWDAdLJw2FVc4 LWFsaWduOiBsZWZ0 DiX3EFC0oVTppS6hpDnq fkohkT3yNyt+QmlydGgg MSS1HYn7M7PqZqa1JVGd nSjtDS6apKFrBLob It2bdQlskYwzUW2lXACe tjlth721UkAhm1yrWPWa gEPiFYtcBXW8R11fz5N5 DFOcXPCwNVU4zJZ3 rN1vnTapbobtdYEulKzi ryAjtFihNAhqOYvgR908 LJYjbEapZjAdOEq6V8Oo Wxm5RENvaHvvCK8h fMYpJHgcBm4ryKlnrNxn EF0eANZfplfiw196SfQu t3stPWEeuCAgXSiyCXG9 D38am2K8KYSeFHPx STN0wNT2wN9xeBoiapkp bGVmdDsgdmVydGljYWwt WOypL016KSRjbLvuGhTi rAk5A3LaQdg6NPXq kDqgNZ9trSTmVOldQv4v lCqthToxJR0gCZXenhwl h038LrAxi1mcRWGqaCMe ROfaMTZ0Z07da5V4 YPGqMQQoINF4wDZ9nN2g bGlnbjogbGVmdDsgdmVy eZmtJCchKHzgT687OSWs cDsnPlBhdGllbnQg BLleJSi7T5AeWjyccWH+ EV26KGJmOB46kAUluJKg w5lvvWk7AhPbMDOlMWK2 iEzbRXcnd0ZiOKQi S99qaZSus0A2RKCbqWdy yGGpXbAwzYD8nF6jEKdx foawy4vuwfebGagnb4yl hm60oD17X04iPOei ZHRoPSIzMCUiIHZhbGln ib4xrQ7nUr4+PGNvbCB3 rMP8rJ4pOLMuLlU1GVms S505KeMplGAcVdrw j2wib4gnmYz9EnW9JMHk vdAfoOuuYZX4j2YbIf95 U22uBUazXVAcFVRvFSMe ZCTqoSyduj9bxL0g Ii8+UUOxcRR7xED5sH0z LhAaKjA3VIwuS280KrAj pDFwRtlyR57nD0EqqQK+ KASyTpy8PCAkcVua WS5obUGrUHnsVr3wOKI0 QcCdGgXmVBpbS2VdDZIn mfjojtvtsNY0YZCjPGWn cY82Ii0ewKoxUBLs gBWZwV0owpwtf7nwmtrp IoSdSMCkFTj6JQl0BXZj yEmuBjVnQZA0HsD0URA7 aNVjjE6hoHxhifaz pV2cS4EmVCUkwjtcAo08 jC7kZbYtFtB9MNhnKcl+ B6WGQaghSF4MD4xLSWcw SzwvdGQ+PHRkIHN0 aLhqXUfsQJHguU0oDIDo D3b6BuIpKqK3CXnwB4Ui JMQixtirAz36cJ2cAjBg NpE1PJmwR0VvibU3 WDYfkZElYYrkPME2Q48c q1B4NKTqGFUeQFS1rOQ7 hU5ivRhkddgnaNCarTpz dmVydGljYWwtYWxp S692ZUGmcPzeCtVjGuF1 SxH2UgC8T5ZcAkc8KOSy mOduLV1bzKOvJTjaIu8x oZoagUdbBF4iODGt mkjoWSQqrL4nDXBreORr sWjnRF5cLMFbzwrgn762 UgBtGEK7LREpwHYrI4Mz nY3jFjXmOFBhIJVs I4OecLGtBVgeC688WJei VeA7MLChigLgX9BePZZg nDlmSjT9i3X2Np11DUVC ZWFyczwvdGQ+PHRk FMT3dCtyRUzpPAZjlE8i LCAqZ5n8ZkVeJrI6PDva T0VsZKQfpjipJy53uO8d WpVjQuB7DTyhF4Tf kuK6FIZcuRNoCYccEYC5 Z64id4Z6URVvBUZmZMQ8 tHV4lO4xpSkxavfkhEHg dDsgdmVydGljYWwt PFcxC081WYAzgPjdPe1U GOS0Y6XpQhl9UCIlxCki PD0isDSdJEzeRj0rlZov pMydXD2dDFEksgnz XPBqwU9eCKQdfOHhlLia FF5eZTWdtqqfn264ZxWy JEE6WSZevNDoZ1BxkA0r DoBnBOOlDNSyK1Hd nOPnABpeG958SDseMmW9 AQOzuaIsG2PnVJXmqUhl FcI5m9K1Za8THSigmPI+ NV32or90L8QiNohn Mle0ACTnGOC4vEW5gP1l BJZsEJqbq6E6kWN2O0Ak dzYpwb0fi7bgZACmYDba Z41vsYVbx5E2SCYv kME3VLGvpDjlWoUdfO13 Oyc+UOMqmHhca8JhChui v1zpc3evgPk4HkPjZKWb twSjrNntKUF7g4Tk Zo35P43gMZjmRGOiKWJr IDSjVFWchTfhzv3idC8d Ii8+PGTgbXL1kXF7sM7s BoSrXeU5CPivM383 KbNtvIQmIjmfe1xng4mv pZu9KpYgFFJfhyDyjWpz YWX5w2UbGc63Z2VkuKmp c3VtRkq0en64wBQp n5V5qRM9D7TxBPSffcuk dXVvoBjxRI6zBAVrotem VLNfdO2eMRXjL1k9PvEe BgK7YMecE3RjoqJ9 IEIgiQTpORWbbWACiL5t igfjn7pzjytnNiRoQUVh AIo0VWn6VPKdrHzpYbAh GFN1TgJ8NCS2qDQu vK8syMhxtazvwW8eSpf+ DBd1v2crnPGnAS0foAJ9 IR39NO98hCEws6L2bJK5 M0NvPDKvurtrllur oWL6FGFeEZEmdO09Xx8g cUzkVn9gWBRtVLA1LAHo xLGdG8DhiW1aYrOeJLZl SMYiY9ZwyJHuPDqx D136HPywDjT6CGGsqpOk T4WqKFOknUwsTtC0l6R8 Vu5LGB43OO18FH56sCZl y6O8kEA2K9GsHUEa hvgwlaxquCD8YFKgKTRg rT62Ky9vtJvyNn1oSIMt XMF0ALGacWEtL7BajW9s NuMlCYBbPZNvN9Sg kQUpJQrnL798IFdkEeH4 NVXlwjDeP1JlSRYnkSmb YzQ7t5A1Ru5HSq26UQ90 PX58uVNbo5K6cRP2 Z9TnVKBsjclvilmzxMM8 MTAdXHIycI00Zk7nzHwd Uk6rKUEhIEY3HRJhdWNv Z6FjoL1fTyBpNJPb GZBhH3ZubEOuSJxnS790 GCdaTvK3EJMgneMpG0Tt YEKerCflQaY9a5P1Td6M CMbrdrh6I9OqDuay dHI+DD80OFXbCP08xQQt qBCqo9vmdRp4PyFcWLUx EMG5mHhdYJzgp9UhFJTv Z36blINvg9Z2QCCa bGx (more content not included)... [facility] Coding Summaryon 07-17-2023 Coding Summary HTMLBase 64 DubonryqTAg5tQv+PGhl YWQ+CB4RNZSmU16vpLAx iR6xH1IRMGaFQcsbZXXH GJeXWiUvowNgMM9kmICw ZXJu IC8+HG3mEVHvAdoflXWh d1U3iVA1G99ccy5wXDev sGG6WBWrQsNjodhrz0wy iRb6YNawUhirDwOe UKEbqR49FFA0tW20Ef90 dWLobMSxq2dpgLs5LxQy LMLsWEW8qRfpEKlso4Zt YYAoJ37zrAWbp0O7 IGNvbGxhcHNlOyBlbXB0 iI1hWGpfsxkym7cqqmra Dve5rl37zGNlu3B7hAR5 O6MicqA9LRFcaJOc QasseKCYqP7kalgzn0rs itliFeMaWAPzMZq8ORn4 IUKizMugHhVkBC42SJM7 BEIckvRhX3WjQQCq nZsaQuA1x1Z2Eb8FL0YX AxgdS9FNDMNGJGndbXF+ NM67mn12R1NsKrmhQlt4 QPVgZGA6cWU7mI1m LRYaAQsoh8H8pKT0B4Zz ptYlpr7mw7lnXNUxTIar S20mlLCbg2B1BQWhjXU3 UFRfcYbeFwHvxN85 Oyc+IAGkyTlfr5RnGybl e3uvg4zchOl2ZvciQMGq eqBkmYcvOGI7y4UyUi0w LOUzrBO6cDG9gJ6l AkYvMxA1FBooQ294DaGp pZDbXizrE92aC7TylNF+ VGGkGaw3BLVbsRxyQZ6u A4NoFQVinqregKQy hRcfFQ3dPJVwhmxvOUHm kR4uBJFlP3u9YkBaWyM8 BFrfX3YuSHIfmlduZq94 mM3uUcUjIhS0DHks F9OxdzH2LNXdaPDsIGpk DWR3D21xl1W0MHJmUSLt LEL3fYL0iU0euIpjphsj bGVmdDsgdmVydGlj GFebFJfeA785DZFhiBiz PkNvZGluZyBEYXRlOiAg MDMvMTMvMjAyNDwvdGQ+ ISEwGCC2jYldPHUg wGYyXNspXr3bfZzrmByf KQ7fFCBabpzqCKCqvI9c IPXvkGMmiOrjKE9jROHy hqtks849WbQtBOH0 FVRvtJLxA9NcsO9lBlKj BYXsZZIaI2EvuSByFThi W509LDptKmQ3VDHfucPk B2GpWBGvpLvqUdF8 z0A2Nw8Od4RcgkzwD8Xu tJWiWoWdKcamJSh2I0Mv PjwvdHI+EQ09APEvOW13 PBz4QXX6nEewVWnc OPRnW2AdbG5cOjApIDFx ZGRkOyc+PHRhYmxlIHdp ZHRoPScxMDAlJyBzdHls KX3iVz6jFLIuHJPv gZofsVYeTqLuk5vmUZUh PVcaAI8jwGcqQ1XtkSP8 LHRtr2q3Fb27X20kB9Zs dXA+AVRhrGC7kJS3 pT2hNeIzOnX8XHdzH883 JhJovUNiJacto9ksk0ja bRi2XsY4AVWnduWobPzi VLX3v7PgGx66N06r IHdpZHRoPSIxNSUiIHZh lStdmp0spD4qYv8+PGNv nWQ4zXT2mT2jKiNzYdG0 YFgtD942KrDcqKAz Srfdr9kjo1qzyVm4ReNd UTJfnrFqcOcxZZZ3n4Ua Kt50L5ZypSjte0NxZak7 rc90vCGid6Y3uJH3 S3CwSTDzvtbwgGRfiImr VZ3cMDHcugfkTZVifC7v OHZrC9e8PzRyLtH7VRxk B1LtlzZ4XMThfQFi FDDnaEAVxO3orpjyx4us mcotIyEnWJVfLKx9FMz0 MQQvlWzpNiTxQQJ4LsJ1 OWQ6bGRuqC5apLxi nldfgC9rDfr+ORR3mNZi jSUHFH8iQevgtJJ+PHRk PJG0tRuvGDtxQEAkrU5x FLJjD8p1PvRiJqI9 HJbbK4CbjmJ5TIKwsXQp XQFerAUCiT6ebmhif9kn uoaaJnFqTSBxCCv6OIu8 LWFsaWduOiBsZWZ0 BlE6IKT4uGCnfR5flLch fvrivV5kEfw+QmlydGgg TUI3POf3Z8KdSva2CXLh zExkEJ6tqJVaOLba Ds4mwYitwDsgGS6aSLTv bsjlv479FcPyk1thCUAt sEAlHKykNWR8O39ix8W8 HIRlRIHkZQL0pMK6 yU2uaGaqtnuciYHfgGof nvLurZwfTEnqIUlwE956 YALohVpyRnFgSCk4D0Pg Toy9FZDvgJzwIY1f lFDqYByuRx3nbErowBmf PH6gLVGbpujdv423ZxCc m9qfPHFbqIIdFCsqILH5 U94pg4I9NSFiNYOr XSV7pWA4bM4qjSaagaug bGVmdDsgdmVydGljYWwt CKrrK658RQGkiTbfIgKm zHk2W9FyGhp7RSWl qMxdSZ8vjPAeYEakBs0n dVmqmNnoYX1tKCCjdfui e232NnLsy8hxGTDniROk TYolLBX2F93bk9G2 HGBkXWToKJW5hTD2vB8j bGlnbjogbGVmdDsgdmVy gLgxMZyiKLfmG484GTSg cDsnPlBhdGllbnQg ANpkTIv2G0EtXyvazSS+ QB65XAPgGU72lUEdvBXd v6covPo7CgRwNYOfAYN1 jWeeKGhaj4QtKQPn K47kiFMuq4A2KREizRfv qCMkEaAlaXQ7aT3uJTgj qvrhk5izducqTehun7to yv01wZ17E20hPIge ZHRoPSIzMCUiIHZhbGln ge6huN0rNq0+PGNvbCB3 dND2dX3bWXQcEfG5GUza O338EqScgKAoEnkp o4iiv1deeFl9VcS9TDEh dcUwxJjyBJR7q0PxIw57 P30eSMqwUKRgXEZeXUNh YJNglWaitj9hwS3c Ii8+GOFgnAI5sGH3cT8d SfOuVpL7LIsmC661HoYc hRZtMozfF81wG4IpdDZ+ EUNpHko8ZZPnuHko EJ2lpSEaBKbbTp7rDUG7 UqLoQnGgSEkgQ9KvAOKl zgduacubhPL9EMWtTFPa yO76Xk4slJsjENYy yCAGdA2afknbr0tugfwa TaOwVTKqRNb7KLe3TTOz bIfuZoIoHJW7IsJ1HVB5 gZJezV8keAwyrsxl oC8mT2UoXGZnwyarYp00 yL1fKyHoYmA1SYrcZfu+ G8LQWwvoVG3EC7dXPPva SzwvdGQ+PHRkIHN0 gImjSOlgGLYbxE2pDPQj Q1p5YrYaNnK9LZdeH6Rv RGJdqiqzHw94mK4zKaMi ThQ6WZfnV9FhjrW4 WINubNMsNUceNME6O48m j5Z3PRLhDOHhUOR4zKF3 iQ8dnHwplubluNRhyWpp dmVydGljYWwtYWxp G874FSNmhRdwXoZbDuK1 JhN9WrV5V2DrVhd0WLIo gWzoFX0jcPTeGWskPs0h wBozjQdjDA7lYJJn rrpnDQJwjR9vOQZuqTQm kSpgBG7oDBHyraxhq107 OhIaYKD5SRBppWPfN9Of pU4bMiDoXAVaONKj P4RhtCQlPIwuF913LEyu UpN9JLVlstFzC7HiYPQl oFuxHmF9y3R9Jk03SHTJ ZWFyczwvdGQ+PHRk VVY4mXevAVirREJdmM9z WAMeH0y4VySpRsR5RSut Z3KsIZDasdhgEl03sH4h XgWuFfN9DHxuH5Bq hsI8YHVqgNDbITzbQJO0 F27sx0S2ONXcCSVgVYF2 vWF4jY1zlXgjngiavIWk dDsgdmVydGljYWwt WJlcU077SSRauJckSi0H AHL5W3DxZfl5OEKyjNcu CK4nsSNpFDixZg9muZkw nEkrOW6fTOKpdcqp LGIjjB7xNDMysHFgyPpu AQ9pFDGpkuldb432UqBn DJH0EXLmuNKcJ3WnvQ2f GeChVBNqNXJnG7Ir pJLrZFvxB884DEtaOrQ1 MIXhjmIrB2LhYIWlkIiv HvS0d5V1Kk5WPEfklBG+ TY79pb10X4LrBgcp Jpj7SATmINT2cYQ9mE6t GFOqGIzrh5C4tUB4M6Bc ukLtnh2cm7caVVKqATgo W96rwEUkv9G3EIBx zQJ5HQSynOhlMwTakT97 Oyc+TDShlYuie2KpXwwg n8ads8egaLj2AaEsHRCg bbBxqXibOSQ8s6Zq Rn54P20sJZrmPBWeSJPs FVMdUNTghJdhgx4bzK6e Ii8+RTBdpSG8bRH2jH6g LbRiHeA1YYqvX173 WxMgpFYgUvggy7lih4lc iAn8YsFvGBHijdLorZwa PBB0k1VwRm91U5AggVzw d8YjYfd5bp30rATn t8U0qYH2R1ToZWVftdnq cJMgqScxBA0aQSLkckww LFCyjS7qZNPkM4m5AmYy HhG8EOkmC1DzpwH5 KOJdzXBjXFXceQFRuB9r qkofo7fjyrjhYgGzSPPq HRy5DOu9ZFVqcPqdWwZc MUW9IgE3KUY0jXUu kO9hoRtbyhxaaD0vTca+ QAg8q1fraJHsPC7kyTQ9 OQ64AD18gNVrg9O2iIO2 J5QhUBPezumytued sYR1WLKaOGSalN86Hg3j mMktRj1yHRLxIYK6AQKb fWWlO3IpwI8aZeLoIDOd FCXrG6RyySLkYWis I008QUozIaR5KVFptoDw K1FiIKSawFphKdC8a6V2 Km4KWT44YK82HA66nSNq v6Q4pAM2R5RzFYUe tjiwymmnnTW3BALdQTLj tO01Js2leZrgAn9aXFOz SNI3LQRidZOdD9MljH5g TfYjKPHpNGTqQ7Zm oUDrCWkmZ725EVamQdZ3 SYGxoyEdG6CpWATmhGdb RdP3r9L5Jg3RZv65RS34 JA71pBVpq8G6hHO9 J1CkYOTxafivlurvwMX9 ZCBuWZNbyZ56Tt2giIdz Ec0mCMPrQUA1NTDsgAXc O2YnjD1iYaGmANCq IPOaH7NbtDHvCJjsK249 UMgaAmW0WXDgcuOiP5Mk ISOosWjrPxR5l0H7Oe0A JBqpswm8S7CpYtpb dHI+HF46AGUtMH75fRKy tJNwz5utaZy1TwBnSEDp FPH7kFyuHOynk6QyUHOh B64ykZKru7H1PBJd bGx (more content not included)... [facility] Coding Summary HTMLBase 64 DlqkbbkrDTh2fTg+PGhl YWQ+NR0WPPDeG27qgIYx qY8oI7VZNIkTHwzjHEJT XBnMNtAgvtHsHP7vfVBl ZXJu IC8+ZB5tSIOlNipzvENy v8K9tOF2R87xha1iVHjn mOO5ZJTmLlJjdmlpc2gd oPj6PRuuAwxdPzHw AFNwjN85LID5aP31Ls76 gQEmaKXsf6fwkRx4ObWa BQRqWYF5lRseATorw6Cm WQKwI55imRPuj5Q6 IGNvbGxhcHNlOyBlbXB0 dC6mVEizrexgo1qxixcl Bzl7dj13zKCml0E8xPS8 C5VwiqO1YMHpvFRb BdjalNRXqY6qlsxue7ap lcnnFrDbNCNpQVz5NGw0 GACluCxjYpRzQA15KJG8 XUXrrfPgX6YxAGEl vQzfRuG3x2U3Iy7KM7WD DocnH8NGEZDUOGunbXN+ MN69iy33S9JsNdwnHek6 ZAAbXQU0tJF4dO2q BUBbKZqwo9G9nMA2L9Ll asSlvx5tc5ttESAuRIih A84rnFLje2M7LXJpiYO6 PKZzfYavOgJgbG18 Oyc+ZFDukNdye1WwZgwt a5ugx1dufGg1BfspAKKh zcSebVhpSPM9r3BvXv8j BRPlwYN7aLA8sA0y LuMvEdS0AMkfG115LhLr nHZoEstvJ61iB4QxdDX+ SBNmNvx4IXNrtWxkEK4w B3XsPPBowwviyWRt yOyiOZ7hYZOslbenQJUz iL7wCUPdS0g9IhKhKcQ0 ETdoB1SgUEVzitlwBm10 wE3cKyFdGnA2OLse K3QyymN6RXSnoIRdLAzq EIE4K89bj9O5QKDbGDAm ZOR8gIB1cK1jyCrsofcx bGVmdDsgdmVydGlj KPpvNGmcW108NYPckUdc PkNvZGluZyBEYXRlOiAg MDMvMTMvMjAyNDwvdGQ+ TDAmBXR5gIjnBTQl iHQzLBviGr5mzJwkuZud ZQ3zNMLvoyonAGOcwX0g YZFjpZSomUraQO2sRFQi alcjc470UwEuHKZ1 AVDkeBWcL0NkpZ0qNwDs PADgJUNsB0XqlIGpGIka X235XHiwPhJ5AYBxrhAt Z7WpMRZfmHmfKeJ1 z7K1Fl3Wk9JkrunlI2On bLCuHvUoMufsKIn8Q7Fr PjwvdHI+BT91LGLfBO46 DOr9YFQ4aZesDEqo NADgG0JhpB0dAkSyBOBy ZGRkOyc+PHRhYmxlIHdp ZHRoPScxMDAlJyBzdHls OH5yHb6eDQRnFJQa nSgtfYHhQwFoh3pzMNHq PJiyJR3miQjqA7AswWM2 GSWut8c9Yv15K44qP3Xk dXA+JHXqlOE3qAY1 wJ7lLlJdIoV8KIxuJ934 FlNzzNYjFezoi2qbx1tx lKs6FtF3PRNejrOtfPkr FJF4u5EzIk64P00e IHdpZHRoPSIxNSUiIHZh iLwhhw5ebR8kDo5+PGNv lLP3lAE1sQ5nJvAdSqU3 TTasX764AhMltNXf Wxhmq6hsw9rolVu2HhGi VPOnzaQguQtmNUX1n5Rb Vb11S2SzuTmxp6RoYdt9 zw62wOMnm6C2aTF5 S0AvEHGqfensqDWuqHaz VK8iXEWdgpcdPQGqtL0f RTTsA7i8SbLaUtA6GVib N7GpwkB4QDNfzOXz RYUlaCXMbC8xqxtcx5ix djhkEcYcQDZnOTr4WJw2 APCswQgbXpIdESF5QfR5 DKT6iDSluI1oqBpq drewqP6jFdg+PJE2vTDy zMGYET3iWuywsTS+PHRk EXG3wJedCLyzOQKfcN8g JNZdS8s3AfCnNdA8 OXvxJ3PfytO0GHQxoCSg RVMwcHQOgA1grwevs2ri xxemDwAnAEIvVSz5KUx3 LWFsaWduOiBsZWZ0 YpV8AAY7xWKklY9jlLpt yygiqJ0hFiy+QmlydGgg QWT2YYn0J6CpYgm9TSIn cYadEW7tzEPlMHne Te3maLtqaVwhWZ1bPZDe ojnlh794CmGha7ydWRNv wRVnVBbgWUB3S34fo9I7 BPIzBIAcAXX5qEP1 xV0fpUwagcvwjOWmlTod vkAaqJssMIuaBVeqP711 WAFjaOktYkMtZVs1U5Kj Kqx9KMOwvJwnTE8j zBBcQRxjJl6iaZptgVws PV9pGEOqsgwro411JpGf v1fgURNtdJSyDDglYDH9 U98zt0D6WCPyTKQd MIJ6gDA0dA6qoCbojttf bGVmdDsgdmVydGljYWwt VXatO381USZbkSuwAeBw wZw4H5SkXhc0DDXd tVfwKN8clQJvQXtoJa1k qGbceIhdRK0cRQKipfqz c822WkLqb0wtQLMazBAl RLpoPTY7L86ht0X5 KFLkZDIlBOO0kCY3yJ4k bGlnbjogbGVmdDsgdmVy kPqrZZwkCAacS312EYBc cDsnPlBhdGllbnQg PVynMCv5Y2KvHywpjKR+ UW82PXSvLX08tCEwyZUt n2zxbDu7DaAzSPSrXVQ0 cRogFGkci0ElBUXq L23xiDOvx0L1LYWzjGrb tDBsQkDnfKI3jH4xZZge yqxea3vdfazyMkvwm8ic rd99cE96D18jPXvu ZHRoPSIzMCUiIHZhbGln hj0ysN0hOa6+PGNvbCB3 zHG2vV6sVFTwPtT5DRad G786TkCdvWEzMqxl d3oiy3rhfGf2YzW6DRAe vgMceSoiRSI4n5QsKs64 G41wWJdtTCFnSVXcCVTf XEBmnWyyqc3swK7f Ii8+HGIesDW4pZV3xT5l RkMuOjE9VPdbI058KmCk cVRhCeflZ12jU8NahPO+ AMNjCws8KVLxjXni BL3lxFSqNDmqFj4vTAK3 MgKxFgGdBSflJ8QiLFWi cmkchbgbxAP4MGPeDWXk yW80Zr5inRuuHNZb jYZHfY6dulgdr3pwlwdc SyKpFMVwEKv6LIh3YTKf eKmfCzNrQBA2OuO0JPT1 xFAagC7uiMxvjnlc rM8hL1DnGXMfvefbFr47 fR7zBlZtFkS5NBbhBpk+ O9SYXifzII5TV1tCPXkn SzwvdGQ+PHRkIHN0 sHhjHRmpVFPnpK0zZWCj U9n7UcCrAwB6TBpfI2Np CPIimplgKy23vF4zMmZz ChU9VGspC6NthrR0 WGTrbHWdWAtwMJU1V78m l3E0YUQmRXFcQVQ5rAG9 eX8lbSbrumgqrWToiHmj dmVydGljYWwtYWxp O028FLVkdEblSxEvCpO3 TaO4CyQ9W9JlBwe5MXMs sYubNR1ktLTdTHjgKo5b hOxibSpjIZ1rSUBk pwbfOEMjxV0rQFJdkOUb aNhyRU6zKJGocnbqu191 NuSnITG3GYChhXGnT0Gg hG9aIoDuLEZuYIRy H6PlrJAyISuxC832EOzh OrV5MVLrahGgE5OzUHJu sWsuAkA9r8S7Fz75PMXH ZWFyczwvdGQ+PHRk DAX6fYcdUGhlRJTgnS6f WGCxS4p6JbAyVlE0DWuu U9FnLHZawducNm19fT0d IaAnTmL0GUjwW1Jb zxY3BWTayDGpEDzdBLQ6 F90xz4C2QNLcLNCuDEU7 oSC4bL5ciAcvekemaQGo dDsgdmVydGljYWwt UCfjH294SNOunTswFu6H LEW1G2RqYgf3VGMyxWnq LD4izABqEIleLl8okXqn yEwiSP5uQOOcmamt GOYmiY2dPPXumAVajLri NH8gNUOgfieuh581NzVi WUR7JXIngRZgA6UpvR5v ZoHoZMEtNOSkO7Ag kVIoHKdxQ318BEghVlY0 DQFdbzKaT1PoVERzaDyu ViI3j5S7Bw6MFLfekKZ+ KI88da67U4RsEurd Mmc9SZBbIGB9rHM7tX9j NTJvULwdu9E6pAY4U3Ze xmQctp5nz0ioAEGkOHsk P34uzLEyy4O0CXVq vFZ5UXNhuLpwJzCkhH60 Oyc+UTPzuAjdh2DpXpbn q8jnk7pnlOy7GeLfGJQt wpOslXamEHN5o3Br Cv65M04dNHgbECKiEPWz XFUmRJVuuDxisx6uyO6f Ii8+VQMsnKB2dGF4pX9i RuTfOlV7IQtaR364 JkMzkUKqIbgxp7rfo3ra sPt7TaUkUUJtleUenQye SJC4s3VmNm86C8JwvClq r8JdLwr5aw77oETv k7R0gAZ0H6ZwJJKmzttb lJKsnGfiGD5rPPMucojq LLDbfM1jMAJiC1m2GcSl HmA6RWpxN6BuygG7 RHBdcPQhJXTglYKIbM3s bboii7jzmumqGyNgZVHp NDv2UTv4HCCeaRrfAeZc LLX9MxF3UDL3oXIq hD4kxEkdcaqtiS7xRqi+ TGd2p0vloAFsRA5xeWG3 CR05LZ79cOVyq2B8tVX5 E8BsXFGqygvsyfzi iCN0EKPzNFJobD40Tc1q fWboNg4fFSKjTRA6AZWy vGTeV7ZibG0vVsEwPKQd AJYqX4NuyDQvAFch I444UAivZjX3FYRukuCy W7BbQPKhtUxzChZ3b4E1 Nm3JSP28WP55XD06dYHg z8Z6cYZ2A0OjMKCh bcvflxybwTK6FQMkUCDa aE32Zb7pjQyeBa1cKNTz EHZ3DZHwoNXmP3SzsG1n OoFfRMOpLPRwF0Ts oAZuTVriG143IDecDeT6 AEVjbwVrJ5CcRRMcvYun GcO0q4D1Hp8UQq45OP32 BJ86bILne9F7xYV7 U4BhOXQrvhysonlcgYD8 QNKnENVuoL35By9dzLdh Sq2jZQSsYZH9TVTukCPc C3DrhP2jLsBtFNHo MEPdV5PivECpINfjV321 RZacApF2MDPigaOxR7Js PHIfaVzrAoO9c7L4Ls6G JDqqkyq5R2LoIftm dHI+PT77XDOcBH18wZEk pPAxd2ibfMz2LhFvKXIb WCA0mUctIUmpe0JmWOTh Q87caVSsj6I2OHXp bGx (more content not included)... [facility] Wound Care Noteon 07-15-2023 Wound Care Note [id number]#1 [facility]-10-2023 Consent Forms [id number]#1 .[facility] 07-10-2023 Outside Records [id number]#1.00OTIFF [facility] Coding Summaryon 07-09-2023 Coding Summary HTMLBase 64 JuucdrxxPWx9pOz+PGhl YWQ+EZ0YJEGoI32fjXEk mP2cU2PNRDyQChkfWKCH NNuJNtHkblKjHV9rzRAj ZXJu IC8+XR3jUEXmLatbnSNn x9M3yCX9I58nau3bSRcv uVD6FMCmEhKcmdogi3kq yGo8TIelPqanGkXp SXBidV99DBU6oO38Rl37 aVZpcKQrz9mjzDy7AcBh MQOpCJN7xWpsNWlhv7La QJMwE41wyCXqe6B2 IGNvbGxhcHNlOyBlbXB0 aU5tYJkvqoesr2mpbrrj Xjv4ku97zZQri6M0jPP9 J8KfwrD0IJThxOWq LmpycNCGnN8gzziya5ro emxaRcDiCIOnNYp9WWj4 ZMNtkGozLoEhKC72BTI0 PDIfsmSbE8ChYMCd zGnmUoO3u8T7Iz4DN7WR KrgkW3JAIPZYJGhtuSL+ QM67bt57K2FaRxdaEou8 VFIeZWX5mVM3vD9i EXDeQRdnn7R8qXK2G4Dm luKvhr3nk7naGFMeGXus F14eqRLnc0X5CJWyvVG7 XYMepEgwVnDpoK85 Oyc+ZBYecAlgc8IrQnhh y3wzd1opdJn4WrkmRAFa waYbwYurADK2f1BsCe0i VIUbtFT2qKI1rW5c IaGpMfP6DVwmL487FrZn kTGvTxjtG31hG8JbkFZ+ KBLlByk1QSWwdUxkFC9b J8EnAKIuzbfanZYl bSadUC8fHUAgjhywTRFi zA7oLOChD1q8ErClXyR2 QNwlY2BtIGUwywutOf31 gD5qRhCdPfH5IIay J5PchxU2ILGfgYIjSSfq LVF6H44yn0B5YDXgPHUx GBO1dAM2gL9svEozwsxi bGVmdDsgdmVydGlj NLgmCJkjI070OEEtaSsh PkNvZGluZyBEYXRlOiAg MDMvMDUvMjAyNDwvdGQ+ JZAzDTL9aGsnMCGe bNFoPSziGa5frSstcAbh ZW3fCZKrzshvSNLyzK8f BPFrjZQfuHvySL1fDTUh vcgnm206ByZuWVJ0 FJGbgXFgQ9LizZ7fXzVg OUCsWLLkB5VadQCcRMcx U592TWjgFuX5DQZnmoBf S0ZuNKTzjEkxFhP2 r8X5Ja9Lx3RqomztP5Sm xANyGsLkMjpcDZi6E2Mb PjwvdHI+CB62QXNjTI80 DGe8LGR2eAscNAdk LTUbY8LntB8uWzWuKMGr ZGRkOyc+PHRhYmxlIHdp ZHRoPScxMDAlJyBzdHls AI8jXi1hMJFbXPRk xPhluTLyWlChg4vuOKAt NUryID2pwVesK6IwlZN8 VWQfu3n5Zl12E19sD9Dw dXA+GRJndRN5sEB8 dM4lYhHgJyL2LPbqG934 NtUsiSDxKbytx5tsx4ik lLx4SvV7EFFhofQtnRxq KGI5a5UiFp65K84b IHdpZHRoPSIxNSUiIHZh aFslhr3vmV4pAt1+PGNv qGW3zFD1fN1wGdRnUrH8 ELdyV808SqVsqHEq Ghsnx7new9xftEy1FfAl ECWvqgUxuEdvMIQ8m8Qk Lu02S1SnfFagj2XnVwm5 zu12rVGdk1J5lIX1 J0WiIOMhniyelDDdwCzc BZ8sFUBkxigwMEDpwS9k PMBrZ3t1VgTnSrT1MDts W4FaqcG4YZPueBHb BTQljCEYjF2plunht8jj tkklMzRoXLPdBEn4SWz5 XOPbtHynQoEqTHP6KzJ6 SGW6wBHubM6xeAwq ngvnhQ5oJwm+RZF2wIIc oSGNJK3xWmcnbHF+PHRk HWN2hGlnXQocTOFjoT4l EHIvB2c7XnUkIuU9 ADqgO2TbfbI2GJNjrYNk VSXoiKZIqI4kahzzi4au qviyDjAvSQHkZAk9KVz3 LWFsaWduOiBsZWZ0 JlQ6ZQY6mQEqaW8waOhl asszzW4wRyz+QmlydGgg AFQ3IUv5P6ShCug0LCTx zMsyDX8wwMMpBKzd Qz3tkNfriFugGV3cTQMk dzicu653VrGzp9roQGYd gIHuYLguXRK0O14hq7Y5 ERAhGYEdLGX7cEV0 uW9txEekhmsemLGskQtn fdWqoTsaFRwvEDqyG853 RYSxvBhtNdHgCIl6L9Ay Giw0CTVtgEufHE5f kTZpOXnyGf0dvSgamMia KL5mKIShktsfg140YxNb g7uzRRRqrFIgWAsoPVX9 A69iu5I8BTXrHNUj OAM5aZG1tP2doAxotavw bGVmdDsgdmVydGljYWwt SMdbS519DUCcbYdrLuUa gVk4G7HvYpz8FZIa aDghWO3tkASsOMozHg3u oBapdXfmFF0pPBDcfotb x580FnZri4rpVKVybXMl CVizOAX0Y79yc8M6 CSHxZVDeUTB3eJX1nB0c bGlnbjogbGVmdDsgdmVy uVotUTwcOJuhL501YTDc cDsnPlBhdGllbnQg IQeuZYt1D7VmCbjpfLR+ KN61TAVwIO50fIUqeRFb l8ydmOy3NaMtVHPhJVQ3 uWcmUQodm2WuHJTu V69wuGCpm0W8DHKwmCbz fOBoQoJavMY9dA1aDDpi pgxjp0gghrfxYdaiq2ya vm11xI78G06oGLmv ZHRoPSIzMCUiIHZhbGln yg8ztZ2gPc3+PGNvbCB3 eZA2lC5wRLMiYvK2RVuk N296JeVurOEuSrym k9hzy8rowAa4EjY1ACYd vhDsjRebAFA5p9XpJt09 R13sYZhpMJGlVHGiBLLf PCQbkXeiyt6gaI8i Ii8+FTRqqNT5tHQ6yY5l XiQxGaQ9EHxrQ765UtMy dMLaSmymG47pD7AdgGX+ TJQqOhu6EKIdhYnq NQ2ehQKtEEvfWl8fBDA2 LoNmHdFiJThaH7QbONIs jhyktgjolUM9POObCGXd zZ19Xn0dpGosJFYf uKFUtM5egvbhq9auhmng OoZwHGQiYAh9BLo0GDJd eAceMbItDSY5RbV0XSH4 sIQnaV7tcMgieuje tY3vQ0CfWCFtoxakEd03 hU7uJiBmKvF8ACchDmk+ F7RIIgvmLP8FL3kFKEds SzwvdGQ+PHRkIHN0 dXloBYsoBIKgpM4zNWRf C2w4UxPwFxG3XIkiW0Rk WHEeubsqVz32nM6qWpXn TsV9UCppD5FqegZ1 PXHtdMWlWLnvEBD2T51y v3U5EJQwXMSrEGV4vHZ9 nK1geLyohwavyJIieIiq dmVydGljYWwtYWxp K975GYGmoVnbKhIiXfD5 FuK3IrK8Y6EkJra3CTZt pCcxCQ3otYSuTBmnOu8q bNolgKaxUW5jVNZw ikwuJPVcnT7lIGVukGWa cMytNF9wOIYkrylbv873 GnEpYMG8DMUkvLDbV4Ft zD6sNvWyHCGbCGBp S4SzkSVkLLqvI326HXie RdM1VZKusfSxG7QzJNPi fUmnOoD9l7E8Zv45DWXK ZWFyczwvdGQ+PHRk KIL3dXyaDTkvIFNhpZ9k KZJhC7z3XvIbKxJ8GEdc Y7LnXBVokjdeDk16oP1j HpEzEhI3CIfsW9Sm uxF4DRReqHZuRRysMVD1 I77tq7Z3NBTcNWGeCKM1 oJP6uT3ibKllylekbIAh dDsgdmVydGljYWwt CDxlD949MDDscPrkNj3X JRC6S0YtMdo0UDCpxIip AU4paJZeWRyrLb3eaMgr iOhoZY2gMEWwxyyk WHMwaN4qBMZygWIqkSuh RH0fWFTjzlnun959LxHt ASH6BTCjyTAzT1TvpW0l IxBaKQDbJSWnR6Fo eHSbYQyqQ777SIgfHuB3 ZXCuipDcJ9YtCFSanAsm ZiU8s5I2Hw0GHVubrIM+ PP09og48O6GbPomi Evu2KDSeLFY9rCF5mY7v ZITaIAfan0F1cSP4E9Bx xePklo2dr6pmEZXpUPkh A38noDPel6N9RDOa mRN1UWMycVydLrLpnV87 Oyc+MALdoGimp2YsJptz p3edf1iddYd3PhPfHYDh plSzzXnlSQY2y4Ry Ju21P46vJJksKYPwMCEh CRXhXREmaTzlje1fcT1c Ii8+JNApwSM4bMM0lG2e PsRqFqN7PSjaU325 RnWtrSYwIkfep2wef6pr vZh9TeBfYVRaylXqgZpx ASS5c2RbAv68K6FloGrf h5MkUkz2vu83jQCv f3X0wUV7L8MhHBNlymmh gZRuoBqdQV6nBBFmmysl WYDpxA8fDEQbW7j6MaTx BcZ0LMufH4FevaV0 KTOtmNZuNIPkpPWSpL1i dajkg4qlbpscQnCdTCUv WKm8TEu4JZOhsVqpYwOv DWJ5ZkZ2VQH4rEQf qQ6arVympoylkP1fDug+ NFz4f1cpxODzZX5wpNK9 UJ47RX85vSQlt5Q0fJF7 F7EaUNJhgckcyrit hJC5LWKeLFLqbT70On9k ySmpGm1tFCNeVVZ1LBVf xPYtY9KpaH5aZbViMFZw QBWtQ8MoiKQvLLya D729FBkrIrV3TBVuuzBn A0LfXMZndDulQmF7j7G2 Ba5FDX58TZ54YP75lJIy m5Q3hPG6C8SbFSBi roiliiukwAR6SMQbQINu xW74Qa1poPcySj8xNFUe RXR0WJBwpPErB9VfpU9s KqAuHZWfJGXvW1Sd uZFrSBslU259PRkeIvP0 DAMfrbVdY9SkIHGvvFvz SmB6n1J9Rv3JQz21BV51 PY06mRFhh2F8qBC7 Z6PfEFGugzoydzzmmEH3 UHAvITIreG64Fz0noEyo Ey0yKCDnYCV9WEOxvYWd F0IcpD7yNvTeYZAa CLXkV0LtwNNuSZzpK690 ZPgmAnK5MGYhahByJ7Ir IOLsbEqtWzD0g9N8Nt8D LWinjks3E0CsJwzk dHI+TH16NODhDT41kVGx eYDxd5fwyFs7ZiJzQYTp HEV3tAlvBXgnw4NkREKm Q99zjERmn1W3EWZk bGx (more content not included)... [facility] Wound Care Noteon 07-08-2023 Wound Care Note [id number]# 1.00OTGTIFF [facility] Wound Cultureon 07-03-2023 Wound Culture rt calf, [...] S <=0.5/9.5 Verified Vanc S 2 Verified [facility] Comment on above: Performed By: #### [id number] ####[facility] (DEFAULT)[address] [place] [id number] Ambulatory Patient Summaryon 06-26-2023 Ambulatory Patient Summary [address], [address] - Visit Summary For YRN RICARDO Age: 63 years Sex: MALE : 1960 Address: [facility] [address] [place], [address] Home: Work: -- Primary Care Provider: LESLY MELCHOR MD Race: White Ethnicity: Not or Language: [place] Health Plan: 1?[facility], 2?MEDICAID [facility], 3?MEDICA[facility] Reason for Visit: Three month follow up for med refills Prescription Information: If you have been given a prescription for narcotics, seek immediate medical attention if you have any difficulty breathing or any sudden status changes such as confusion and sleepiness. If you or anyone you know is experiencing suicidal thoughts, mental health, alcohol and/or drug addiction problems; contact the [facility] 26/11 Crisis Hotline -Text 4HOPE to [phone]. Follow-Up Information With: Address: When: LESLY MELCHOR MD [facility] [address] [place] [address]/ [address] [place] [address] [id number] In 3 months Future Appointments [facility] Appt. Date: 09/25/2023 1:00 PM Scheduled Provider: Lesly Melchor MD [address] [place] [address] [place], [address] Future Orders No future orders Additional Goals [...] Dosin.000 kg Body Mass Index: 50.14 kg/m2 [place] Body Weight Calculated: 84.047 kg BSA Measured: [...] BY MOUTH ONCE DAILY nebulizer machine ([facility]) 0 refills authorized Instructions: one [...] is caused (more content not included)... Normal [facility] Patient Handouton 06-26-2023 Patient Handout Infectious [...] and keep track of them. ? Take ozlg-ych-dacmfmm and prescription medicines only as told by your health care provider. ? If you were prescribed an antibiotic medicine, take or apply it as told by your health care provider. Do not stop (more content not included)... [facility] Outside Recordson 05-15-2023 Outside Records [id number] #1.00OTGTIFF [facility] Device InterrogationOrdered By: Rosalind Murrieta on 05-14-2023 [facility] Study observation (narrative) [facility] Ambulatory Patient Summaryon 03-26-2023 Ambulatory Patient Summary [address], [address] - Visit Summary For YRN RICARDO Age: 62 years Sex: MALE : 1960 Address: [address] [place] [address] [address] [place], [address] Home: Work: -- Primary Care Provider: LESLY MELCHOR MD Race: White Ethnicity: Not or Language: [place] Health Plan: 1?[facility], 2?MEDICA[facility], 3?MEDICAID [place] [place] Reason for Visit: [...] alcohol and/or drug addiction problems; contact the [facility] 26/11 Crisis Hotline -Text 4HOPE to [phone]. Follow-Up Information With: Address: When: KAREN ZAPATA, LESLY To [facility] [address] [place] [address]/ [address] [place] [address] In 3 months Future Appointments [facility] Appt. Date: 06/26/2023 9:30 AM Scheduled Provider: Lesly Melchor MD [address] [place] [address] [place], [address] Future Orders No future orders Additional Goals [...] 3 m2 Body Mass Index: 47.09 kg/m2 [place] Body Weight Calculated: 84.047 kg BSA Measured: [...] anxiety, 0 refills authorized nebulizer machine ([facility]) 0 refills authorized Instructions: one [...] BMI? Body mas (more content not included)... [facility] Patient Handouton 03-26-2023 Patient Handout [...] numbers. This can be done either in [place] or metric measurements. Note that charts and online BMI calculators are available to help you find your BMI quickly and easily without having to do these calculations yourself. To calculate your BMI in [place] measurements: 1. Measure your weight in [...] for Disease Control and Prevention: www.cdc.gov ? [place] Heart Association: www.heart.org ? National Heart, Lung, and Blood [place]: www.nhlbi.nih.gov Summary ? Body mass index (BMI) is a number that is calculated from a person's weight and height. ? BMI may help estimate how much of a person's weight is composed of fat. BMI can help identify those who may be at higher risk for certain medical problems. ? BMI can be measured using [place] measurements or metric measurements. ? BMI charts are used to identify whether you are underweight, normal weight, overweight, or obese. This information is not intended to replace advice given to you by your health care provider. Make sure you discuss any questions you have with your health care provider. Document Revised: 01/13/2020 Document Reviewed: 11/20/2019 [employer] Patient Education ? 2022 [employer]. [facility] Outside Recordson 03-25-2023 Outside Records [id number] #[facility] 03-18-2023 Outside Records [id number] #[facility] 03-13-2023 Outside Records [id number] #[facility] 02-11-2023 Outside Records [id number]# 1.[facility] Patient Summaryon 12-21-2022 Ambulatory Patient Summary [address], [address] - Visit Summary For YRN RICARDO Age: 62 years Sex: MALE : 1960 Address: [address] [place] [address] [address] [place], [place], [facility] Home: Work: -- Primary Care Provider: KAREN ZAPATA, LESLY To Race: White Ethnicity: Not or Language: [place] Health Plan: 1?[facility], 2?MED[facility], 3?MEDICA[facility] Reason for Visit: 3 mon f/u Prescription Information: If you have been given a prescription for narcotics, seek immediate medical attention if you have any difficulty breathing or any sudden status changes such as confusion and sleepiness. If you or anyone you know is experiencing suicidal thoughts, mental health, alcohol and/or drug addiction problems; contact the [facility] 26/11 Crisis Hotline -Text 4HOPE to [phone]. Follow-Up Information With: Address: When: KAREN ZAPATA, LESLY To [facility] [address] [place] [address]/[address] [place], [place] [id number] In 3 months Future Appointments [facility] Appt. Date: 03/26/2023 10:00 AM Scheduled Provider: Lesly Melchor MD [address] [place] [address] [place], [address] Future Orders No future orders Additional Goals [...] 371.897 lb Body Mass Index: 46.73 kg/m2 [place] Body Weight Calculated: 84.047 kg BSA Measured: [...] anxiety, 0 refills authorized nebulizer machine ([facility]) 0 refills authorized Instructions: one machine to use with nebules [facility]patient [facility] ([facility] Prescription) 0 refills authorized Instructions: Wound clinic. [...] to displa (more content not included)... Normal [facility] Patient Handouton 12-21-2022 Patient Handout Orthopedics [...] walking or exercising. ? An inability to immigration specialist items, twist your hand(s), or control [...] aerobics, that increase your heart rate. ? Vplyn-hf-iixiid activities. These help your joints move more [...] the (more content not included)... [facility] Coding Summaryon 12-18-2022 Coding Summary HTMLBase 64 XjffbedcCAr7yVi+PGhl YWQ+RL0YOJCoH71kcQCj dS4jX5YOSDbWCtemXPDM FRqLGzLnxuMgHC8nnIZr ZXJu IC8+XL4cDAAwKxszuDSq y6A4xGT1W53txd2gUDnm mRV1PWKcLmQsjubmt8qs eIc5UWwiZumyFdZe PTLorX65YDW1sF63Ji81 rJHuaXUmj8vmvHo6KgJq LLJfFEU1lZysEQnzo2Kc UUYlY31dcDOdh6S0 IGNvbGxhcHNlOyBlbXB0 rQ8fCVavstzro8sqhqim Vgh3ik44rKHnr0T7yBT0 N2AkwpB3LCLqsRIs LlhjzCCOpV8fjjqvi5bn nvuuHoRxWRMtXTh1MHb7 SYBqdJdfOjCuYX54KND1 GJZwjjOeK0OlBOUh fArnZrH5j1K0Uf5UR3YV LgzgB9TEMVAPWSsrhRI+ TG44nt16U7CkQdsrObu1 EOTjVFK6pHZ6hC2r BNKwMDxmq9Y1aGW5V4Vd dlKorp9ws2zrQXBzNIhl N68crOCiw1T1KROmaVL3 KPVscEebSsTyeI40 Oyc+CCFfjKsfj7ToLxkz s6jcn5goyPf0WwoaLQOj kmHjsBkmCSW1y0AmIh4b VEQqqDY3fNS8fU4j VrOjOuT3EPhkE878AyKz bJRdTkytK05gZ3XoxHQ+ HUVuRgj0NHPmaUbjZY3g T7ReHZChvyachCHj gDmwSV9yTWCyvryyHUPf cP6fLXYmC6s2LeAcDoS1 QXsjV1WgTBWdprgfAq86 cJ1zUrVkArT5HEco D3WjaiW4EYIjiDGsEClf ZPX6P50hg0I2WBIwXWZx EYM0zVN7lI0ffHsytddg bGVmdDsgdmVydGlj LVejJAqmW315JKJrtIah PkNvZGluZyBEYXRlOiAg MDgvMTUvMjAyMzwvdGQ+ AUSqZDX6tJnjFNQq fNAvFJeiNk8tzYbhtTks XT5bZVYennpjIEFdgL9v IUIidEHqlCymJI9cWPIc ebheh366MvUeJAX5 FPHfyGRsD2UnbV2rCdQc EMTlLDHaU9PbzYDlFFih Q743QKjwZiH8KLTmpbIi P4SiEHRmlUikVyS2 d8K3Po4Gn1QptgcoR7Sx vDHwDiDpPvcwEYa6G4Am PjwvdHI+HE37RYKqKV98 GCf8MXA4pMvuKAxg VXHjL8FtnW6lOuEzVMYe ZGRkOyc+PHRhYmxlIHdp ZHRoPScxMDAlJyBzdHls QG4fKx7vOQHdDXIk hVmvkMJcHwKgs5jaRAAd TZhpVK4onEtaL2DjbFB0 QTQtq2b9Su66M51oQ8Bf dXA+OAMkgEF6nMZ1 xH1tFpPyZoN0YOajE284 LkRrlXDcGewxv2sla6jf xLf2KxU8KDJkyiLtlRqu MFB5o2EgXk67L04y IHdpZHRoPSIxNSUiIHZh mSgfbu4meY9uBh8+PGNv aEN3uUQ2vY8yAgExOdQ8 CZjjV145BuMlzUNd Fgrru2rlj1shuWo3RyBm REYjorUuoQipDCZ5f6Ms Mz11U0DvnWdmx5BcGth9 ui34cERjw2Y2qFK2 Q2ZxXZThflorpDAaoTrp ST5tUKXqhqpiRPJgwJ6m DXZqV3q1XlApYvK6NZnn J7YficH7CPNwcYAw NXBnxZEOjS1jyogso3up upbiJwLoLQRqBHz1NZj7 RNJbyTwqDbHzIQF9IpY7 MIH9eKChmJ3pjFgk pyntiI5aZev+ZSF5cUTu iCQTGB5iLuczkCV+PHRk LKM5vSatNQhcMAWmyW9k RKDrE2b3CgBrWjT7 JPkgL3NeesC8IZKyrXUp YTDatPBVsP9nceafs0rg tmsuViQrPSWmNWh0YWp5 LWFsaWduOiBsZWZ0 MsT4KOU4jIUxmI1joCoe goppnL5dHib+QmlydGgg ABO1ZZg2L8HbTiw1SYEr wLbxKR3qeZVuQGjo Cn4iyWmhlOybFY9kBRBu ulspg734BcJqa2gzKMZb hIMaLCipTJQ3Q06vr5Q4 GVWdDRQnNMH6rYT1 gO8ioQihnodadSEonVtz uzFauUfjDFqyXYwyK197 HIKliIjyCxIxMJh8Z1Ab Hwz7RHFpqZwrYL4n gSOjZPbcUb2hyDclkJks BL7zKJVtgihwt528IeWm g7ucZLBimZDiPZqjMWC4 T59nz7E6KJHbTIIz DVP0kWO2fO1tqYgoujxh bGVmdDsgdmVydGljYWwt EDtoQ354DQRsjMcpWqNv xHy1I9FyUwx1CRKq hYwxJX8nkMPzBIxiHc1f jDgdwDujIG7kAUSshvel a000KoUjo0kcUAVteAKn WFnaOXW5B06ts4G4 FDTcHNUiWXT9tQP8hE4n bGlnbjogbGVmdDsgdmVy oDngDTmxGFjaW588CLXv cDsnPlBhdGllbnQg BTqcSNe0F9NsSlonhGX+ YE30WMPyBT06mZQucOGq f8amqFa4PtKrDAJbAQJ9 eDseMEqmn9DrVUEp W96qrIYbb7O1PBLexXau yRZkNnPdxRL2kH3hNMan scpre3wwronwLzkqe1xu kd35vE08L67aLHjr ZHRoPSIzMCUiIHZhbGln wg9uaP9nKz0+PGNvbCB3 oYM2vF1wSQJbXiX8FGif L381NrKkwJMvBekf b7fqv1urlLl6KrQ8MHJh mxLjaNvrICP3r8QqGq22 B55hIBdqGHQiWTAzGPEm KEAmvNvezz9nsZ8d Ii8+AMOgpFC0wSA8tG2d YiItCiX7YIpbN545FkCn gEDfUyizW76vN5EdpGM+ YWVgEto4FNPbnCew CV3iaAQmPUagRw7jSVX5 XnMlNtNwGEucF2EbXAHw vqgrayhgwHL9EHBhJJAu hB34Lw4ozPltMCTa eIYCbA0xygznm5jsikvh HlByTQWxZUw2AKj3YFOd tYoaMcLwOXY5SvY8PJI5 qPFdbD0uwYnxcwyz lB9fO3JoPNMvszhoJv00 yC7eJlZfXyS1KBkfUjl+ V9ZMZppqKT4FC8zCIKcg SzwvdGQ+PHRkIHN0 nJzfUBwqFBLdtB4mCVRh D3p1GcDzGzN5XFbnL6Pj LGWobnivZe95xX0bFlLm FeP0YPcnF5WapxM5 TCVqdPMvYUuxEEQ2P33t p4B9WDEmWYCcUSN0sPG2 nS7naHrkwnvhnISnoGun dmVydGljYWwtYWxp Q709HYHchZwoDjBwNtP6 NrQ0UlD7Y2ArXju6WOLo tLfsDL0fcOTzTDidOf8x nYmphDeaRN8kGNQs ejjsOUAdsK4rRTMppMTw lEzaBK5aKDTjlrntd643 EwEoAQI6HCEvqOYrY1Iy iD3rUcGwPJPfDYRv G5FfpRQsDNlvZ994NXea JiN2GQHfctHeB6BwUGIq iQujHmZ0n3F6Kk72FYTF ZWFyczwvdGQ+PHRk ENT0aHorZFvvNFIlkR7k BEUaA8v5UmFxApV8KCiz X0AvKILruvcbJx11zH6l MlEoNgS9UYvyQ7Fw ivE6DNBnfOVzBKqmTHA4 Q21we6E5UIHfCJLvQTI8 hUG6eI9zhCvembvqzXVd dDsgdmVydGljYWwt YPhpE256OFFtqJbnCz8X ZPJ8D1FqNvc4YUJzfZnl UI6knRTcYQpeBp6czWqz vSlqMV3eCVRzvkzj ERQvfJ0nDZLssFHsuFzy OX9bLIBcbhwjr882BwKs WZQ7SXFsvZOzO2VxbI7n TsStFGHdFFLuP3Ms nCGgTHmwB175SDywRfQ5 DMSeooPmZ1NaQLEksAso CeJ5t7J4Gs2KTKsraJM+ JE87un81S2ZrCdmk Kpo4ZIPqBXS8zAU5mR9w FXXwYNeip8Z3eBK0D7Ag tpXynh1dr6pmHHAxAJwv K33xfLUvk2R5GURm qUF9XBHitApvHkWneW33 Oyc+GSRaqBjtq4XwImaz j4snt8pywSg4GwXnAYUe flYcfHciBIP4p8Dh Bh56X90jNEqgCGWeIYWk EAQyCIDaeNzpcl3xcV3i Ii8+KPNoqJH1bSY2tK8c LaEdIeD3GFlmX390 GvBqyRDxAipmg2ytr2ab gIq8OxGxDXAajeDirBsb YNR0u4NiAa21K9FeqHoy c3WuCuq1jj14kWWy e6S9lNC8F7PgTIIsatwg eRFzwCnsCY2xLBJkvtup AECeoC8nMNOxS6l8TmBa HrF8IYpiL7WqvqP2 QNPijCDhBICzlHLHeX9f vvoxv3upiulbRtKoQXAg BEf7TQo3QGCxbZktDsTg WHD4YcX4MTD3gDMn yY7keTnoydgzbW6rMpd+ BDa1j7hucQKhCQ5efHA5 GN93DP77dLMnq7Q6wTF1 V1McYUBcwocdxcxk rPN8DGCmWFXdfV90Mp5a gYyrMp7mGIHzMJC8OZNl uFUzN8KzgZ1rLsHzFHBp GXRbO9ZbpUZsQWjq A146QBedPgW0XJBatvKk T8GiYWNmkEmiIgN2a9X1 Mf4NZC49CF64BT12oVUo g8N3oHI8L1WdUCEk kklfexxqwYW3SEYxPNPy uN38Pg0utHavNn2iIGNq LTZ3BAYljNNuP9ZljV8z KrYeXUFzTKLhX1Ta wDYhUKgnG065LGctOfG3 RQYvzpNfS9TgFPXmaRph GmG4t4F0Om4BJs12BQ82 SF28gEJyh8T5mME4 P3SjPCCdahvdwuoelEN6 LKIxLCDsxK52Hp9pcIdc Km7pKHVfFOA4UTGqkUJu C0DrfV1uUzNyGCRa QLEuV3YvgQLxATkgF400 VJfbRhH9YCOlafOqG3Mz DOQmqHttDzJ1t9O8Gp4X HPsoqkg8A7RiQvwd dHI+ZS42ECDgTE96cPIv eGJta2uteTs1TjAeKWRt HSV4pRchBTxdd3FqZOCt L65znXToc6K0AQRb bGx (more content not included)... Normal [facility] 12-13-2022 eGFR Non AA >60 Invalid Interpretation Code [facility] Comment on above: Performed By: #### 1 [id number], [id number], [id number] ####[facility] (DEFAULT)[address] [place] [address] eGFR AA >60 Invalid Interpretation [facility] Comment on above: Performed By: #### 1 [id number], [id number], [id number] ####[facility] (DEFAULT)[address] [place] [address] 30602 Albumin [Mass/Vol] 3.9 g/dL Normal 3.5-5.0 [facility] Comment on above: Performed By: #### 1 [id number], [id number], [id number] ####[facility] (DEFAULT)[address] [place] [address] 18951 Albumin/Globulin [Mass ratio] 1.0 {ratio} Low 1.4-2.6 [facility] Comment on above: Performed By: #### 1 [id number], [id number], [id number] ####[facility] (DEFAULT)[address] [place] [address] 86933 Alk Phos 84 IU/L Normal 32-91 [facility] Comment on above: Performed By: #### 1 [id number], [id number], [id number] ####[facility] (DEFAULT)[address] [place] [address] 04175 ALT [Catalytic activity/Vol] 22.0 U/L Normal 17.0-63.0 [facility] Comment on above: Performed By: #### 1 [id number], [id number] ####[facility] (DEFAULT)[address] [place] [address] 15213 Anion gap [Moles/Vol] 9.9 mmol/L Normal 5.0-19.0 [facility] Comment on above: Performed By: #### 1 [id number], [id number], [id number] ####[facility] (DEFAULT)[address] [place] [address] AST [Catalytic activity/Vol] 31 U/L Normal 15-41 [facility] Comment on above: Performed By: #### 1 [id number], [id number], [id number] ####[facility] (DEFAULT)[address] [place] [address] 09009 Bili Total 0.5 mg/dL Normal 0.3-1.2 [facility] Comment on above: Performed By: #### 1 [id number], [id number], [id number] ####[facility] (DEFAULT)[address] [place] [address] 17450 Calcium [Mass/Vol] 8.6 mg/dL Low 8.9-10.3 [facility] Comment on above: Performed By: #### 1 [id number], [id number], [id number] ####[facility] (DEFAULT)[address] [place] [address] 63918 Chloride [Moles/Vol] 104 mmol/L Normal 101-111 [facility] Comment on above: Performed By: #### 1 [id number], [id number], [id number] ####[facility] (DEFAULT)[address] [place] [address] 83884 CO2 [Moles/Vol] 28 mmol/L Normal 21-32 [facility] Comment on above: Performed By: #### 1 [id number], [id number], [id number] ####[facility] (DEFAULT)[address] [place] [address] 33464 Creatinine [Mass/Vol] 1.07 mg/dL Normal 0.90-1.30 [facility] Comment on above: Performed By: #### 1 [id number], [id number], [id number] ####[facility] (DEFAULT)[address] [place] [address] 22016 Globulin (S) [Mass/Vol] 3.9 g/dL Normal 1.5-4.3 [facility] Comment on above: Performed By: #### 1 [id number], [id number], [id number] ####[facility] (DEFAULT)[address] [place] [address] 93111 Glucose [Mass/Vol] 92.0 mg/dL Normal 74.0-118.0 [facility] Comment on above: Performed By: #### 1 [id number], [id number], [id number] ####[facility] (DEFAULT)[address] [place] [address] 60234 Osmolality 276 mOsm/L Invalid Interpretation Code [facility] Comment on above: Performed By: #### 1 [id number], [id number], [id number] ####[facility] (DEFAULT)[address] [place] [address] 67817 Potassium [Moles/Vol] 3.9 mmol/L Normal 3.6-5.1 [facility] Comment on above: Performed By: #### 1 [id number], [id number], [id number] ####[facility] (DEFAULT)[address] [place] [address] 86826 Protein [Mass/Vol] 7.8 g/dL Normal 6.5-8.1 [facility] Comment on above: Performed By: #### 1 [id number], [id number], [id number] ####[facility] (DEFAULT)[address] [place] [address] 19295 Sodium [Moles/Vol] 138.0 mmol/L Normal 136.0-144.0 [facility] Comment on above: Performed By: #### 1 [id number], [id number], [id number] ####[facility] (DEFAULT)[address] [place] [address] 10446 Urea nitrogen [Mass/Vol] 16 mg/dL Normal 8-26 [facility] Comment on above: Performed By: #### 1 [id number], [id number], [id number] ####[facility] (DEFAULT)[address] [place] [address] Urea nitrogen/Creatinine [Mass ratio] 14.9 mg/mg Normal 4.6-16.2 [facility] Comment on above: Performed By: #### 1 [id number], [id number], [id number] ####[facility] (DEFAULT)[address] [place] [address] Hemogram Standardon 12-14-19 23 Erythrocyte distribution width (RBC) [Ratio] 14.2 % Normal 11.5-15.0 [facility] Comment on above: Performed By: #### 1 [id number], [id number], [id number] #### [facility] (DEFAULT) [address] [place] [address] 50079 Hematocrit (Bld) [Volume fraction] 41.9 % Normal 34.8-51.9 [facility] Comment on above: Performed By: #### 1 [id number], [id number], [id number] #### [facility] (DEFAULT) [address] [place] [address] 45914 Hemoglobin (Bld) [Mass/Vol] 14.2 g/dL Normal 11.8-17.7 [facility] Comment on above: Performed By: #### 1 [id number], [id number], [id number] #### [facility] (DEFAULT) [address] [place] [address] 58994 MCH (RBC) [Entitic mass] 32 pg Normal 24-34 [facility] Comment on above: Performed By: #### 1 [id number], [id number], [id number] #### [facility] (DEFAULT) [address] [place] [address] 98969 MCHC (RBC) [Mass/Vol] 34 g/dL Normal 26-37 [facility] Comment on above: Performed By: #### 1 [id number], [id number], [id number] #### [facility] (DEFAULT) [address] [place] [address] 24411 MCV (RBC) [Entitic vol] 93 fL Normal 81-100 [facility] Comment on above: Performed By: #### 1 [id number], [id number], [id number] #### [facility] (DEFAULT) [address] [place] [address] Platelet 122 x10 Low 138-427 [facility] Comment on above: Performed By: #### 1 [id number], [id number], [id number] #### [facility] (DEFAULT) [address] [place] [address] Platelet mean volume (Bld) [Entitic vol] 8.0 fL Normal 6.3-10.2 [facility] Comment on above: Performed By: #### 1 [id number], [id number], [id number] #### [facility] (DEFAULT) [address] [place] [address] 77655 RBC 4.50 x10 Normal 3.70-5.30 [facility] Comment on above: Performed By: #### 1 [id number], [id number], [id number] #### [facility] (DEFAULT) [address] [place] [address] 00077 WBC 5.5 x10 Normal 3.5-10.5 [facility] Comment on above: Performed By: #### 1 [id number], [id number], [id number] #### [facility] (DEFAULT) [address] [place] [address] 03201 Lipid Panel Standardon 12-13 Cholesterol [Mass/Vol] 158.0 mg/dL Normal 66.0-200.0 [facility] Comment on above: Performed By: #### 1 [id number], [id number], [id number] ####[facility] (DEFAULT)[address] [place] [address] 41899 Cholesterol in HDL [Mass/Vol] 48 mg/dL Normal 40-71 [facility] Comment on above: Performed By: #### 1 [id number], [id number], [id number] ####[facility] (DEFAULT)[address] [place] [address] 45686 Cholesterol in LDL [Mass/Vol] 98 mg/dL Normal 1-100 [facility] Comment on above: Performed By: #### 1 [id number], [id number], [id number] ####[facility] (DEFAULT)[address] [place] [address] 72800 Cholesterol.total/Choles terol in HDL [Mass ratio] 3.3 {ratio} Normal 0.0-4.5 [facility] Comment on above: Performed By: #### 1 [id number], [id number], [id number] ####[facility] (DEFAULT)[address] [place] [address] 82463 Triglyceride [Mass/Vol] 60.0 mg/dL Normal 0.0-150.0 [facility] Comment on above: Performed By: #### 1 [id number], [id number], [id number] ####[facility] (DEFAULT)[address] [place] [address] 01914 VLDL. 12 mg/dL Normal 5-40 [facility] Comment on above: Performed By: #### 1 [id number], [id number], [id number] ####[facility] (DEFAULT)[address] [place] [address] 84144 Provider Orderson 12-13-2022 Provider Orders [id number] 0#[id number] Normal [facility] POC Glucose FingerstickOrder ed By: Serafin Sheraer on 06-02-2019 Glucose [Mass/Vol] 70 mg/dL Low 75 - 110 mg/dL [employer] Phone: Interpretation and review of laboratory results Abnormal [employer] Phone: Glucose [Mass/Vol] 74 mg/dL Low 75 - 110 mg/dL [employer] Phone: Interpretation and review of laboratory results Abnormal [employer] Phone: Glucose [Mass/Vol] 64 mg/dL Low 75 - 110 mg/dL [employer] Phone: Interpretation and review of laboratory results Abnormal [employer] Phone: Surgical PathologyOrdered By : Serafin Shearer on 06-02-2019 Surgical Pathology Report [id number] [employer] PATHOLOGISTS [facility] ANATOMIC PATHOLOGY [address] [place] [phone] SURGICAL PATHOLOGY CONSULTATION Patient Name: YRN RICARDO [facility] Rec: [id number] Path Number: [id number] Collected: 06/01/2019 Received: 06/01/2019 Reported: 06/02/2019 10:13 [...] with no areas of granularity or masses. Assurance Assistant sections 1cs. tm Microscopic Description Microscopic examination performed. [employer] Phone: POC Glucose FingerstickOrder ed By: Serafin Shearer on 06-01-2019 Glucose [Mass/Vol] 91 mg/dL 75 - 110 mg/dL [employer] Phone: Glucose [Mass/Vol] 96 mg/dL 75 - 110 mg/dL [facility] Work Phone: Surgical Pathologyon 020 Surgical Pathology (NOTE) [id number] [employer] [facility] ANATOMIC PATHOLOGY [address] [place] [phone] SURGICAL PATHOLOGY CONSULTATION Patient Name: YRN RICARDO [facility] Rec: [id number] Path Number: [id number] Collected: 06/01/2019 Received: 06/01/2019 Reported: 06/02/2019 10:13 [...] with no areas of granularity or masses. Assurance Assistant sections 1cs. tm Microscopic Description Microscopic examination performed. Normal [facility] Comment on above: Performed By: #### P PPVS #### [facility] [address] [place] [address] 51738 Commercial Loan Manager: Karl Klein MD Nicotineon 05-23-2019 9-VN-Ndredola 3 ng/mL Normal [facility] Comment on above: Performed By: #### C BC, PT, BMP #### [employer] [address] [place] [address] 89254 Commercial Loan Manager: Karl Kleni MD #### ANICOT #### [facility] [address] [place] [address] Commercial Loan Manager: Cameron Calderon MD Cotinine 5 ng/mL [facility] Comment on above: Result Comment: (NOT E) Cotinine is the major metabolite of nicotine and is a biomarker of passive exposure when present at low concentrations. This result may reflect passive exposure to a nicotine-containing product. The half-life of cotinine is approximately 16 hours. Cotinine is metabolized to 3-FY-xgsooppp, which may persist for weeks after cessation from long-term or heavy use of nicotine products. Performed By: #### C SYD, PT, BMP #### [employer] [address] [id number] Commercial Loan Manager: Karl Klein MD #### RAVIT #### [facility] [employer] [address] [place] [address] 71237 Commercial Loan Manager: Cameron Calderon MD Nicotine <2 [facility] Comment on above: Result Comment: (NOT E) [...] positive. Test developed and characteristics determined by [employer]. See Compliance Statement B: [employer] Pty/CS Performed by [employer], [address] [place] [address] [id number] www.[employer], Cameron Calderon MD, Lab. Director Performed By: #### C SYD, PT, BMP #### [employer] [address] [place] [address] [phone] Commercial Loan Manager: Karl Klein MD #### EVELIO #### [facility] [employer] [address] [place] [address] [phone] Commercial Loan Manager: Cameron Calderon MD Basic Metabolic Profon 05-19 (cont.) [facility] Comment on above: Result Comment: Aver age GFR for 50-59 years old: 93 mL/min/1.73sq m Chronic Kidney Disease: <60 mL/min/1.73sq m Kidney failure: <15 mL/min/1.73sq m eGFR calculated using average adult body mass. Additional eGFR calculator available at: http://www.[employer]).1d4 Pty/multiple_crcl_2012.htm Performed By: #### C SYD, PT, BMP #### [employer] [address] [place] [address] 55810 Commercial Loan Manager: Karl Klein MD #### ANICOT #### [facility] [employer] [address] [place] [address] 84108 Commercial Loan Manager: Cameron Calderon MD Anion gap [Moles/Vol] 14 mmol/L Normal 9-17 [facility] Comment on above: Performed By: #### Kenrick VELARDE, PT, BMP #### [employer] [address] [place] [address] 09307 Commercial Loan Manager: Karl Klein MD #### ANICOT #### [facility] [address] [place] [address] 84108 Commercial Loan Manager: Cameron Calderon MD Calcium [Mass/Vol] 9.7 mg/dL Normal 8.6-10.4 [facility] Comment on above: Performed By: #### Kenrick VELARDE, PT, BMP #### [employer] [address] [place] [address] 15439 Commercial Loan Manager: Karl Klein MD #### ANICOT #### [facility] [address] [place] [address] Commercial Loan Manager: Cameron Calderon MD Chloride [Moles/Vol] 98 mmol/L Normal 98-107 [facility] Comment on above: Performed By: #### Kenrick VELARDE, PT, BMP #### [employer] [address] [place] [address] 44347 Commercial Loan Manager: Karl Klein MD #### ANICOT #### [facility] [address] [place], [place] [id number] Commercial Loan Manager: Cameron Calderon MD CO2 [Moles/Vol] 25 mmol/L Normal 20-31 [facility] Comment on above: Performed By: #### C BC, PT, BMP #### [facility] [address] [place] [address] 59678 Commercial Loan Manager: Karl Klein MD #### ANICOT #### [facility] [address] [place], [place] [id number] Commercial Loan Manager: Cameron Calderon MD Creatinine [Mass/Vol] 1.28 mg/dL High 0.70-1.20 [facility] Comment on above: Performed By: #### C BC, PT, BMP #### [facility] [address] [place] [address] 49613 Commercial Loan Manager: Karl Klein MD #### ANICOT #### [facility] [address] [place], [place] [id number] Commercial Loan Manager: Cameron Calderon MD GFR, Amer >60 Normal >60 [facility] Comment on above: Performed By: #### C BC, PT, BMP #### [facility] [address] [place] [address] 50000 Commercial Loan Manager: Karl Klein MD #### ANICOT #### [facility] [address] [place], [place] [id number] Commercial Loan Manager: Cameron Calderon MD GFR,non Amer 58 mL/min Low >60 [facility] Comment on above: Performed By: #### C BC, PT, BMP #### [facility] [address] [place] [address] 89123 Commercial Loan Manager: Karl Klein MD #### ANICOT #### [facility] [address] [place] [address] Commercial Loan Manager: Cameron Calderon MD Glucose [Mass/Vol] 80 mg/dL Normal 70-99 [facility] Comment on above: Performed By: #### C SYD, PT, BMP #### [address] [address] Commercial Loan Manager: Karl Klein MD #### ANICOT #### [facility] [address] [place] [address] Commercial Loan Manager: Cameron Calderon MD Potassium [Moles/Vol] 4.6 mmol/L Normal 3.7-5.3 [facility] Comment on above: Performed By: #### Kenrick VELARDE PT, BMP #### [address] [address] Commercial Loan Manager: Karl Klein MD #### ANICOT #### [address] [id number] Commercial Loan Manager: Cameron Calderon MD Sodium [Moles/Vol] 137 mmol/L Normal 135-144 [facility] Comment on above: Performed By: #### Kenrick VELARDE PT, BMP #### [address] [address] Commercial Loan Manager: Karl Klein MD #### ANICOT #### [facility] [address] [place] [address] Commercial Loan Manager: Cameron Calderon MD Urea nitrogen [Mass/Vol] 23 mg/dL High 6-20 [facility] Comment on above: Performed By: #### C SYD, PT, BMP #### [address] [address] Commercial Loan Manager: Karl Klein MD #### ANICOT #### [facility] [address] [place] [address] Commercial Loan Manager: Cameron Calderon MD BUN/CRE Ratio NOT REPORTED Normal 9-20 [facility] Comment on above: Performed By: #### C SYD, PT, BMP #### [address] [address] Commercial Loan Manager: Karl Klein MD #### ANICOT #### [facility] [address] [place] [address] Commercial Loan Manager: Cameron Calderon MD Staging: NOT REPORTED Normal [facility] Comment on above: Performed By: #### C SYD, PT, BMP #### [address] [address] Commercial Loan Manager: Karl Klein MD #### ANICOT #### [facility] [address] [place] [address] Commercial Loan Manager: Cameron Calderon MD [facility] 05-19-2019 Erythrocyte distribution width (RBC) [Ratio] 16.0 % High 11.8-14.4 [facility] Comment on above: Performed By: #### Kenrick VELARDE, PT, BMP #### [facility] [address] [place] [address] 77890 Commercial Loan Manager: Karl Klein MD #### ANICOT #### [facility] [address] [place] [address] Commercial Loan Manager: Cameron Calderon MD Hematocrit (Bld) [Volume fraction] 42.0 % Normal 40.7-50.3 [facility] Comment on above: Performed By: #### Kenrick VELARDE, PT, BMP #### [facility] [address] [place] [address] 54111 Commercial Loan Manager: Karl Klein MD #### ANICOT #### [facility] [address] [place] [address] Commercial Loan Manager: Caemron Calderon MD Hemoglobin (Bld) [Mass/Vol] 13.2 g/dL Normal 13.0-17.0 [facility] Comment on above: Performed By: #### Kenrick VELARDE, PT, BMP #### [address] [phone] Commercial Loan Manager: Karl Klein MD #### ANICOT #### [facility] [address] [place], [place] [phone] Commercial Loan Manager: Cameron Calderon MD MCH (RBC) [Entitic mass] 28.4 pg Normal 25.2-33.5 [facility] Comment on above: Performed By: #### Kenrick VELARDE, PT, BMP #### [address] [phone] Commercial Loan Manager: Karl Klein MD #### ANICOT #### [facility] [address] [place] [address] Commercial Loan Manager: Cameron Calderon MD MCHC (RBC) [Mass/Vol] 31.4 g/dL Normal 28.4-34.8 [facility] Comment on above: Performed By: #### Kenrick VELARDE, PT, BMP #### [address] [phone] Commercial Loan Manager: Karl Klein MD #### ANICOT #### [facility] [address] [place] [address] Commercial Loan Manager: Cameron Calderon MD MCV (RBC) [Entitic vol] 90.3 fL Normal 82.6-102.9 [facility] Comment on above: Performed By: #### Kenrick VELARDE, PT, BMP #### [address] [phone] Commercial Loan Manager: Karl Klein MD #### ANICOT #### [facility] [address] [place] [address] Commercial Loan Manager: Cameron Calderon MD NRBC Automated 0.0 per 100 WBC Normal 0.0 [facility] Comment on above: Performed By: #### C BC, PT, BMP #### [address] [address] Commercial Loan Manager: Karl Klein MD #### ANICOT #### [facility] [address] [place], [place] [phone] Commercial Loan Manager: Cameron Calderon MD Platelet mean volume (Bld) [Entitic vol] 9.8 fL Normal 8.1-13.5 [facility] Comment on above: Performed By: #### C BC, PT, BMP #### [address] [phone] Commercial Loan Manager: Karl Klein MD #### ANICOT #### [address] [phone] Commercial Loan Manager: Cameron Calderon MD Platelets (Bld) [#/Vol] 199 10*3/uL Normal 138-453 [facility] Comment on above: Performed By: #### C BC, PT, BMP #### [address] [phone] Commercial Loan Manager: Karl Klein MD #### ANICOT #### [facility] [address] [place], [place] [phone] Commercial Loan Manager: Cameron Calderon MD RBC (Bld) [#/Vol] 4.65 10*6/uL Normal 4.21-5.77 [facility] Comment on above: Performed By: #### C BC, PT, BMP #### [address] [phone] Commercial Loan Manager: Karl Klein MD #### ANICOT #### [facility] [address] [place], [place] [id number] Commercial Loan Manager: Cameron Calderon MD WBC (Bld) [#/Vol] 6.7 10*3/uL Normal 3.5-11.3 [facility] Comment on above: Performed By: #### C BC, PT, BMP #### [facility] [address] [place] [address] 64047 Commercial Loan Manager: Karl Klein MD #### ANICOT #### [facility] [address] [place], [place] [id number] Commercial Loan Manager: Cameron Calderon MD PTon 05-19-2019 INR Coag (PPP) [Relative time] 1.1 {INR} Normal [facility] Comment on above: Result Comment: Therapeutic Range: Moderate Anticoagulant Intensity: INR = 2.0-3.0 High Anticoagulant Intensity: INR = 2.5-3.5 Performed By: #### C BC, PT, BMP #### [facility] [employer] [address] [place] [address] 92293 Commercial Loan Manager: Karl Klein MD #### ANICOT #### [facility] [address] [place] [address] Commercial Loan Manager: Cameron Calderon MD PT Coag (PPP) [Time] 12.0 s Normal 9.0-12.0 [facility] Comment on above: Performed By: #### C BC, PT, BMP #### [facility] [employer] [address] [place] [address] 21170 Commercial Loan Manager: Karl Klein MD #### ANICOT #### [facility] [address] [place] [address] Commercial Loan Manager: Cameron Calderon MD XR CHEST (2 [...] Shawanda Aragon MD 05/19/19 Final result Normal [facility] XR CHEST STANDARD (2 VW)Orde red By: Serafin Shearer on 05-19-2019 Negative chest. [facility] Work Phone: EXAMINATION: TWO XRAY VIEWS OF THE CHEST 05/19/2019 11:41 am COMPARISON: None. HISTORY: ORDERING SYSTEM PROVIDED HISTORY: preop sleeve gastrectomy Reason for Exam: Preop 06/01/19. no chest complaints Type of Exam: Initial FINDINGS: The lungs are without acute focal process. No effusion or pneumothorax. The cardiomediastinal silhouette is normal. The osseous structures are intact without acute process. [employer] Work Phone: Car, Mhpn Incoming Radiant Results From [facility] - 05/19/2019 11:50 AM EST EXAMINATION: TWO [...] intact without acute process. IMPRESSION: Negative chest. [employer] Work Phone: Vital Signs Date Time Vital Sign Value Performing Clinician Faci lity 05-14-2023 11:28-0500 Body height 190.5 cm Olaf esquivel DRIVER SALES-NEWSPAPER VENDOR Work Phone: [employer] 05-14-2023 11:28-0500 Body mass index (BMI) [Ratio] 48.25 kg/m2 Olaf Cain APRN-NEWSPAPER VENDOR Work Phone: [employer] 05-14-2023 11:28-0500 Body weight 175.09 kg Olaf esquivel DRIVER SALES-NEWSPAPER VENDOR Work Phone: [employer] 05-14-2023 11:28-0500 Diastolic blood pressure 80 mm[Hg] Olaf Decistopher DRIVER SALES-NEWSPAPER VENDOR Work Phone: [employer] 05-14-2023 11:28-0500 Heart rate 61 /min Olaf Sheae r DRIVER SALES-NEWSPAPER VENDOR Work Phone: [employer] 05-14-2023 11:28-0500 SaO2% (BldA) [Mass fraction] 95 % Olaf Decistopher DRIVER SALES-NEWSPAPER VENDOR Work Phone: [employer] 05-14-2023 11:28-0500 Systolic blood pressure 116 mm[Hg] Olaf Dechristopher DRIVER SALES-NEWSPAPER VENDOR Work Phone: [employer] 06-02-2019 07:15-0500 Body temperature 99.3 [degF] Serafin Sheraer MD Work Phone: [employer] Work Phone: 06-02-2019 07:15-0500 Diastolic blood pressure 59 mm[Hg] Serafin Shearer MD Work Phone: [employer] Work Phone: 06-02-2019 07:15-0500 Heart rate 62 /min Serafin Shearer MD Work Phone: [employer] Work Phone: 06-02-2019 07:15-0500 Respiratory rate 16 /min Serafin Shearer MD Work Phone: [employer] Work Phone: 06-02-2019 07:15-0500 SaO2% (BldA) [Mass fraction] 95 % Serafin Shearer MD Work Phone: [employer] Work Phone: 06-02-2019 07:15-0500 Systolic blood pressure 116 mm[Hg] Serafin Shearer MD Work Phone: [employer] Work Phone: 06-01-2019 09:10-0500 Body height 190.5 cm Serafin Shearer MD Work Phone: [employer] Work Phone: 06-01-2019 09:10-0500 Body mass index (BMI) [Ratio] 53.24 kg/m2 Serafin Shearer MD Work Phone: [employer] Work Phone: 06-01-2019 09:10-0500 Body weight 193.2 kg Serafin Shearer MD Work Phone: [employer] Work Phone: Encounters Encounter Date Encounter Type Care Provider Facility Start: 12-11-2023 End: 12-11-2023 ambulatory Shensivai Obey Facility:[facility] Start: 11-22-2023 End: 11-22-2023 ambulatory Srinivas R Dolce Facility:[facility] Start: 11-15-2023 End: 11-15-2023 ambulatory Srinivas R Dolce Facility:[facility] Start: 10-25-2023 End: 10-25-2023 ambulatory Srinivas R Dolce Facility:[facility] Start: 10-17-2023 End: 10-17-2023 ambulatory PA Kelley Redmond Facility:[facility] Start: 10-10-2023 End: 10-10-2023 ambulatory PA Kelley Redmond Facility:[facility] Start: 10-04-2023 ambulatory Srinivas R Dolce Facility :[facility] Start: 10-02-2023 ambulatory Srinivas R Dolce Facility :[facility] Start: 09-26-2023 ambulatory Melo Reno acility:[facility] Start: 09-26-2023 End: 09-26-2023 ambulatory PA Kelley Redmond Facility:[facility] Start: 09-25-2023 End: 09-25-2023 ambulatory LESLY MELCHOR MD Facility:[facility] Start: 09-16-2023 End: 09-16-2023 ambulatory Srinivas R Dolce Facility:[facility] Start: 09-10-2023 End: 09-10-2023 ambulatory PA Kelley Redmond Facility:[facility] Start: 09-02-2023 End: 09-02-2023 ambulatory Srinivas R Dolce Facility:[facility] Start: 08-26-2023 End: 08-26-2023 ambulatory Srinivas R Dolce Facility:[facility] Start: 08-19-2023 End: 08-19-2023 ambulatory Srinivas R Dolce Facility:[facility] Start: 08-15-2023 End: 08-15-2023 ambulatory PA Kelley Redmond Facility:[facility] Start: 08-08-2023 End: 08-08-2023 ambulatory PA Kelley Redmond Facility:[facility] Start: 08-01-2023 End: 08-01-2023 ambulatory PA Kelley Redmond Facility:[facility] Start: 07-26-2023 End: 07-26-2023 ambulatory Srinivas R Dolce Facility:[facility] Start: 07-24-2023 End: 07-24-2023 ambulatory Srinivas R Dolce Facility:[facility] Start: 07-24-2023 End: 07-24-2023 ambulatory Srinivas R Dolce Facility:[facility] Start: 07-19-2023 End: 07-19-2023 ambulatory LESLY MELCHOR MD Facility:[facility] Start: 07-19-2023 End: 07-19-2023 ambulatory Srinivas R Dolce Facility:[facility] Start: 07-15-2023 End: 07-15-2023 ambulatory Srinivas R Dolce Facility:[facility] Start: 07-12-2023 End: 07-12-2023 ambulatory Srinivas R Dolce Facility:[facility] Start: 07-10-2023 End: 07-10-2023 ambulatory Srinivas R Dolce Facility:[facility] Start: 07-05-2023 End: 07-05-2023 ambulatory Srinivas R Dolce Facility:[facility] Start: 07-01-2023 End: 07-01-2023 ambulatory Srinivas R Dolce Facility:[facility] Start: 06-26-2023 End: 06-26-2023 ambulatory LESLY MELCHOR MD Facility:[facility] Start: 05-14-2023 End: 05-14-2023 Office outpatient visit 15 minutes Olaf GOOD Work Phone: [facility] Comment on above: Cardiac pacemaker (P rimary Dx); Morbid obesity with BMI of 40.0-44.9, adult ([facility]); Complete heart block ([facility]) Start: 05-14-2023 End: 05-14-2023 Clinical Support Ppc Pacer [facility] Comment on above: Cardiac pacemaker (P rimary Dx) Start: 03-26-2023 End: 03-26-2023 ambulatory LESLY MELCHOR MD Facility:[facility] Start: 12-21-2022 End: 12-21-2022 ambulatory LESLY MELCHOR MD Facility:[facility] Start: 12-13-2022 End: 12-13-2022 ambulatory [facility] Facility:[facility] Start: 02-10-2021 End: 02-11-2021 ambulatory [facility] Start: 02-10-2021 End: 02-10-2021 Subsequent hospital visit by physician [facility] Rm [facility] V[facility] Lab Comment on above: History of pulmonary embolism; Hx of deep venous thrombosis Start: 06-01-2019 End: 06-02-2019 [facility] Start: 06-01-2019 End: 06-02-2019 Evaluation and management of inpatient Serafin Shearer MD Work Phone: [address] Ortho/Med Surg Comment on above: S/P laparoscopic sle ramon gastrectomy (Primary Dx) Start: 05-19-2019 End: 2019 Patient encounter procedure SERAFIN SHEARER [facility] Start: 05-19-2019 End: 05-21-2019 Subsequent hospital visit by physician [address] Radiology Comment on above: Arrived Procedures Date [...] SERAFIN LUNALOUISE Start: 06-01-2019 FULL CODE SERAFIN SHEARER Start: [...] years Vaccine (2 of 2 - PPSV23) [employer] Phone: Start: 12-30-2025 Lipid panel Lipid screen [employer] Work Phone: Start: 05-14-2024 Adult BMI Screening Adult [facility] Screen ing [facility] Start: 05-14-2024 Tobacco Screening Tobacco Screening [facility] Start: 07-30-[address] [facility] Work Phone: Start: 12-30-2021 Creatinine measurement Creatinine mo nitoring [employer] Phone: Start: 12-30-2021 Potassium monitoring Potassium monit ori [employer] Phone: Start: 12-30-2021 Thyroid stimulating hormone measurement TSH testing [employer] Phone: Start: 08-29-2021 End: 08-29-2021 Patient encounter procedure 08/29/2021 Office Visit Oncology Consuelo Delgadillo MD [address] [place] [address] [facility] Start: 03-24-2021 End: 03-24-2021 Patient encounter procedure 03/24/2021 Office Visit Pulmonology Teddy Fam MD [address] [phone] [facility] Start: 02-14-2021 End: 02-14-2021 Patient encounter procedure 02/14/2021 Office Visit Bariatrics Mary Lou Power, DRIVER SALES - NEWSPAPER VENDOR [id number] [facility] [address] [place] [phone] [facility] [employer] Start: 01-04-2021 Influenza vaccination Flu vaccine (# 1) [facility] [employer] Phone: Start: 05-19-2020 Creatinine monitoring Creatinine mon itoring [facility] [employer] Phone: Start: 05-19-2020 Potassium monitoring Potassium monit oring [facility] [employer] Phone: Start: 07-30-2019 TSH testing TSH testing [facility] [employer] Phone: Start: 06-12-2019 End: 06-12-2019 Patient encounter procedure 06/12/2019 Office Visit Pulmonology Teddy Fam MD [address] [phone] [facility] Start: 06-09-2019 End: 06-09-2019 Patient encounter procedure 06/09/2019 Office Visit Bariatrics Serafin Shearer MD [address] [place] [phone] [facility] Min Invasive Bariatric Surg Start: 06-01-2019 End: 06-01-2019 Admission to same day surgery center 06/01/2019 Surgery IP Unit Serafin Shearer MD [address] [place] [address] XI ROBOTIC LAPAROSCOPIC GASTRECTOMY SLEEVE, ENDOSEAL [facility] Comment on above: XI ROBOTIC LAPAROSCO PIC GASTRECTOMY SLEEVE, ENDOSEAL Start: 06-01-2019 Subsequent hospital visit by physician 06/01/2019 Hospital Encounter IP Unit Serafin Shearer MD [address] [place] [address] [facility] Start: 03-06-2019 Annual Wellness Visi t (AWV) Annual Wellness Visit (AWV) [employer] Phone: Start: 2012 Administration of varicella zoster vaccine Zoster (Shingles) Vaccine (1 of 2) [employer] Start: 2012 Colon cancer screen colonoscopy Colon cancer screen colonoscopy [employer] Phone: Start: 2012 Shingles Vaccine (1 of 2) Shingles Vaccine (1 of 2) [employer] Phone: Start: 2007 Screening for malign ant neoplasm of colon Colon cancer screen colonoscopy [employer] Phone: Start: 1981 DTaP,Tdap and Td Vaccines (1 - Tdap) DTaP,Tdap and Td Vaccines (1 - Tdap) [employer] Start: 1981 DTaP/Tdap/Td vaccine (1 - Tdap) DTaP/Tdap/Td vaccine (1 - Tdap) [employer] Phone: Start: 1980 Adult BMI Follow Up Plan Adult BMI Follow Up Plan [facility] Start: 1977 HIV screen HIV screen [employer] [facility] Work Phone: Start: 1977 HIV screening HIV screen [facility] Work Phone: Start: 1974 Depression Screening Depression Scre ening [employer] Start: 1973 DTaP/Tdap/Td vaccine (1 - Tdap) DTaP/Tdap/Td vaccine (1 - Tdap) [employer] Phone: Start: 1962 Hepatitis C screen Hepatitis C kojo franz [employer] Phone: Start: 1962 Hepatitis C screening Hepatitis C sc sagrario [employer] Phone: Start: 1962 Tobacco Counseling Tobacco Counselin g [employer] Home BIPAP or CPAP Home BIPAP or CPAP Respiratory Care Routine Daily until discontinued starting 06/01/2019 [employer] Phone: Comment on above: Daily until disconti nued starting 06/01/2019 Initiate Oxygen Ther apy Protocol Initiate Oxygen Therapy Protocol Respiratory Care Routine Daily until discontinued starting 06/01/2019 [employer] Phone: Comment on above: Daily until disconti nued starting 06/01/2019 Surgical Pathology Surgical Path ology Lab Routine ONE TIME for 1 Occurrences starting 06/01/2019 [employer] Phone: Comment on above: ONE TIME for 1 Occur rences starting 06/01/2019 Immunizations Immunization Date Immunization Notes Care Provider Bhavna lynch 12-16-2013 pneumococcal polysaccharide vaccine, 23 valent Stv 2 [employer] Payers Date Payer Category Payer Self-pay 2019 Unknown DAKOTA WEN D UAL BENEFITS [employer] BETTYE DUAL xxxxxxxxxxx 2019-Present [address] [place] [address] xxxxxxxxxxx [id number] 2018 Medicaid [place] ALISNATHAN ROSI MEDICAID [id number] 2018-Present [phone] [address] [place] [address] [id number] 2018 Medicaid [id number] 2018 Medicare [place] MEDICARE [place] SHEIL[place]ARE[place] MEDICARE [id number] 2018-Present [phone] [address] [place] [address] [id number]. [id number] 2018 Unknown [id number] 1962 Unknown [id number] 2.16.840.1.734818.3.579.2.175 1962 Unknown [id number] 2.16.840.1.273317.3.579.2.175 1962 Unknown [id number] 2.16.840.1.598967.3.579.2.175 1962 Unknown [id number] 2.16.840.1.307006.3.579.2.176 1962 Unknown [id number] 2.16.840.1.610377.3.579.2.1286 1962 Unknown [id number] 2.16.840.1.797606.3.579.2.1286 1962 Unknown [id number] 2.16.840.1.414354.3.579.2.8 1962 Unknown [id number] 2.16.840.1.647770.3.579.2.8 1962 Unknown [id number] 2.16.840.1.238617.3.579.2.8 1962 Unknown [id number] 2.16.840.1.371604.3.579.2.8 1962 Unknown [id number] 2.16.840.1.855412.3.579.2.718 1962 Unknown [id number] 2.16.840.1.493109.3.579.2.8 1962 Unknown [id number] 2.16.840.1.298906.3.579.2. 1962 Unknown [id number] 2.16.840.1.825345.3.579.2. 1962 Unknown [id number] 2.16.840.1.928967.3.579.2. 1962 Unknown [id number] 2.16.840.1.807371.3.579.2. 1962 Unknown [id number] 2.16.840.1.290821.3.579.2. 1962 Unknown [id number] 2.16.840.1.676983.3.579.2. 1962 Unknown [id number] 2.16.840.1.210021.3.579.2. 1962 Unknown [id number] 2.16.840.1.608802.3.579.2. 1962 Unknown [id number] 2.16.840.1.962084.3.579.2. 1962 Unknown [id number] 2.16.840.1.772506.3.579.2. 1962 Unknown [id number] 2.16.840.1.838222.3.579.2. 1962 Unknown [id number] 2.16.840.1.347327.3.579.2. 1962 Unknown [id number] 2.16.840.1.555415.3.579.2. 1962 Unknown [id number] 2.16.840.1.763354.3.579.2. 1962 Unknown [id number] 2.16.840.1.291480.3.579.2. 1962 Unknown [id number] 2.16.840.1.000880.3.579.2. 1962 Unknown [id number] 2.16.840.1.653951.3.579.2. 1962 Unknown [id number] 2.16.840.1.847852.3.579.2. 1962 Unknown [id number] 2.16.840.1.095213.3.579.2. 1962 Unknown [id number] 2.16.840.1.985613.3.579.2. 1962 Unknown [id number] 2.16.840.1.914157.3.579.2. 1962 Unknown [id number] 2.16.840.1.597481.3.579.2. 1962 Unknown [id number] 2.16.840.1.888005.3.579.2. 1962 Unknown [id number] 2.16.840.1.427120.3.579.2. 1962 Unknown [id number] 2.16.840.1.292840.3.579.2. 1962 Unknown [id number] 2.16.840.1.207912.3.579.2. 1962 Unknown [id number] 2.16.840.1.106216.3.579.2. 1962 Unknown [id number] 2.16.840.1.110866.3.579.2. 1962 Unknown [id number] 2.16.840.1.039826.3.579.2. 1962 Unknown [id number] 2.16.840.1.398014.3.579.2. 1962 Unknown [id number] 2.16.840.1.478764.3.579.2. 1962 Unknown [id number] 2.16.840.1.544043.3.579.2 Unknown [id number] 2.16.840.1.975391.3.579.2.531 Social History Date Type Detail Facility Start: 02-08-2021 End: 04-18-2022 Tobacco smoking status [facility] Start: 02-08-2021 Tobacco use and exposure Former user [employer] Phone: End: 01-17-2021 History of tobacco use Chews Tobacco [employer] Phone: Start: 02-08-2021 End: 05-14-2023 Alcohol intake Ex-drinker (finding) [employer] Phone: Start: 07-25-2018 History SDOH Alcohol Frequency 1 [employer] Phone: Start: 1960 Sex Assigned At Not on file [employer] Phone: Start: 04-18-2022 Tobacco use and exposure [facility] smokeless [facility] Start: 06-16-2020 End: 05-14-2023 History of Social function [facility] Start: 06-16-2020 End: 05-14-2023 Tobacco use panel [facility] Housing Instability Unknown [facility] Medical Equipment Procedure Code Equipment Code Equipment Origin al Text Equipment Identifier Dates Ld Pcng Ingevity + 52cm Mri - [id number] - [id number] Start: 08-25-2020 Cardiac pacemaker, device (physical object) ([id number]) Pcmkr Accolade Mri Dr Cade - [id number] - [id number] Start: 08-25-2020 Goals Date Patient Goal Desired Activity /State Personal health goal Comment on above: Formatting of this n ote might be different from the original. Evaluation of progress towards goal: home self care Clinical Notes 06-02-2019 to 11-18-2023 Olaf Cain APRN-OSBALDO - 05/14/2023 11:30 AM Juanita Hopper MD - 05/14/2023 11:00 AM Starr Sanno RN - 06/02/2019 7:24 AM Serafin Jesus MD - 06/02/2019 6:43 AM EST Note Date & Type Note Facility 11-18-2023 Note Entered by Yousuf Pierce TOOL GRINDER OPERATOR EXTERNAL on November 18, 2023 07:43:49 EDT From: Ana Pierce CMA To: [facility] Sent: 11/18/2023 07:43:49 EDT Subject: Medication Management Submitted: Complete:rivaroxaban (Xarelto 20 mg oral tablet) Signed by Ana Pierce CMA 11/18/2023 07:43:00 EDT Approved with modifications: rivaroxaban (XARELTO 20 MG TABLET 20 Tablet) TAKE 1 TABLET BY MOUTH IN THE EVENING WITH MEALS Qty: 30 tab(s) Days Supply: 30 Refills: 10 Substitutions Allowed Route To Pharmacy - [facility] Signed by Ana Pierce CMA Patient matched by Ana Pierce CMA on 11/18/2023 07:43:20 EDT --------- From: [facility] To: KAREN ZAPATA, LESLY To MD Sent: November 15, 2023 5:11:03 PM CDT Subject: Medication Management Due: November 16, 2023 12:10:53 AM CDT On Hold Pending Signature Dispensed Drug: rivaroxaban (Xarelto 20 mg oral tablet), TAKE 1 TABLET BY MOUTH IN THE EVENING WITH MEALS Quantity: 30 tab(s) Days Supply: 30 Refills: 10 Substitutions Allowed Notes from Pharmacy: --------- [facility] 10-17-2023 Note Entered by Yousuf Pierce on October 17, 2023 07:43:22 EDT From: Ana Pierce To: [facility] Sent: 10/17/2023 07:43:22 EDT Subject: Medication Management Submitted: Complete:levothyroxine (levothyroxine 150 mcg (0.15 mg) oral tablet) Signed by Ana Pierce 10/17/2023 07:43:00 EDT Approved with modifications: levothyroxine (LEVOTHYROXINE 150MCG TAB 150 Tablet) TAKE 1 TABLET BY MOUTH ONCE DAILY Qty: 30 tab(s) Days Supply: 30 Refills: 10 Substitutions Allowed Route To Pharmacy - [facility] Signed by Ana Pierce --------- From: [facility] To: KAREN ZAPATA, LESLY To MD [...] 10 Substitutions Allowed Notes from Pharmacy: --------- [facility] 07-24-2023 Note CLINICAL DATA: Venou s [...] Signature): Romulo Wright 07/24/23 10:38 a Technologist: [facility] 07-08-2023 Note Entered by Yousuf Pierce on July 08, 2023 07:59:35 EST From: Ana Pierce To: [facility] Sent: 07/08/2023 07:59:35 EST Subject: Medication Management Not Approved: now on pulmicort fluticasone (FLUTICASONE PROP HFA 110MCG 110 Aerosol) INHALE 2 PUFFS BY MOUTH TWICE DAILY *RINSE MOUTH AFTER USE* Qty: 12 gm Days Supply: 30 Refills: 10 Substitutions Allowed Route To Pharmacy - [facility] Signed by Ana Pierce --------- From: [facility] To: KAREN ZAPATA, LESLY To MD Sent: July 05, 2023 4:32:01 PM PARACHUTE INSPECTOR Subject: Medication Management Due: July 06, 2023 12:09:30 AM PARACHUTE INSPECTOR On Hold Pending Signature Drug: fluticasone (Flovent [...] 10 Substitutions Allowed Notes from Pharmacy: --------- [facility] 05-28-2023 Note Entered by Yousuf Pierce on May 28, 2023 07:49:21 EST [facility]: [facility] Sent: 05/28/2023 07:49:21 EST Subject: Medication Management Submitted: Complete:oxyBUTYnin (oxybutynin 10 mg/24 hr oral tablet, extended release) Signed by Ana Pierce 05/28/2023 07:49:00 EST Approved with modifications: oxyBUTYnin (OXYBUTYNIN ER 10MG TAB 10 Tablet) TAKE 1 TABLET BY MOUTH DAILY Qty: 30 tab(s) Days Supply: 30 Refills: 10 Substitutions Allowed Route To Pharmacy - [facility] Signed by Ana Pierce --------- From: [facility] To: KAREN ZAPATA, LESLY To MD Sent: May 27, 2023 5:22:40 PM PARACHUTE INSPECTOR Subject: Medication Management Due: May 28, 2023 12:05:03 AM PARACHUTE INSPECTOR On Hold Pending Signature Drug: oxyBUTYnin (oxybutynin 10 mg/24 hr oral tablet, extended release), 1 tab(s) PO Daily Quantity: 30 tab(s) Days Supply: 0 Refills: 10 Substitutions Allowed Notes from Pharmacy: Dispensed Drug: oxyBUTYnin (oxybutynin 10 mg/24 hr oral tablet, extended release), TAKE 1 TABLET BY MOUTH DAILY Quantity: 30 tab(s) Days Supply: 30 Refills: 10 Substitutions Allowed Notes from Pharmacy: --------- [facility] 05-14-2023 History of Present illness Narrative Yrn Ricardo Date of visit: 05/14/2023 Date of : 1960 Age: 62 y.o. Patient Active Problem List Diagnosis Complete heart block ([facility]) Abnormal stress test Cardiac pacemaker Morbid obesity with BMI of 40.0-44.9, adult ([facility]) Bilateral primary osteoarthritis of knee Blister of [...] PE, chronic lymphedema, complete heart block s/p [employer] dual-chamber pacemaker implanted 2020. He is here today for routine evaluation. Patient states he has been doing well since last office visit. He denies chest pain, shortness of breath, palpitations, fatigue. Patient enjoys fishing with his grandson. Past Medical History: Diagnosis Date Anxiety COPD (chronic obstructive pulmonary disease) ([facility]) Depression Hypertension Hypothyroidism Sleep apnea No data recorded No data recorded No data recorded Past Surgical History: Procedure Laterality Date Cardiac catheterization N/A 08/23/2020 Performed by Brian Hilario MD at [facility] Coronary angiogram and left ventricular gram/pressure N/A 08/23/2020 Performed by Brian Hilario MD at [facility] EP - Device-PPM Left 08/25/2020 Performed by Alexander Hopper MD at [facility] (EP) HAND RECONSTRUCTION Left SLEEVE [...] Morbid obesity with BMI of 40.0-44.9, adult ([facility]) 3. Complete heart block ([facility]) Intermittent complete heart block s/p [employer] dual-chamber pacemaker implanted 2020 Device check [...] MELCHOR MD Referring Physician: Lesly Melchor MD [address] [place] [id number] LATISHA Harman 05/14/23 1202 documented in this encounter [employer] 05-14-2023 History of Present illness Narrative I agree with the findings in the scanned document. documented in this encounter [facility] 01-11-2023 Note Entered by Yousuf Pierce on January 11, 2023 07:51:29 EDT From: Ana Pierce To: [facility] Sent: 01/11/2023 07:51:29 EDT Subject: Medication Management Submitted: Complete:rivaroxaban (Xarelto 20 mg oral tablet) Signed by Ana Pierce 01/11/2023 07:51:00 EDT Approved with modifications: rivaroxaban (XARELTO 20 MG TABLET 20 Tablet) TAKE 1 TABLET BY MOUTH IN THE EVENING WITH MEALS Qty: 30 tab(s) Days Supply: 30 Refills: 10 Substitutions Allowed Route To Pharmacy - [facility] Signed by Ana Pierce Patient matched by Ana Pierce on 01/11/2023 07:51:09 EDT --------- From: [facility] To: KAREN ZAPATA, LESLY To MD Sent: January 10, 2023 5:18:47 PM CDT Subject: Medication Management Due: January 11, 2023 1:31:05 PM CDT On Hold Pending Signature Dispensed Drug: rivaroxaban (Xarelto 20 mg oral tablet), TAKE 1 TABLET BY MOUTH IN THE EVENING WITH MEALS Quantity: 30 tab(s) Days Supply: 30 Refills: 10 Substitutions Allowed Notes from Pharmacy: --------- [facility] 06-02-2019 History of Present illness Narrative [...] NICHOLS 1:03 PM documented in this encounter [employer] Phone: Evaluation note Diagnosis History of pulmonary embolism Personal history of pulmonary embolism Hx of deep venous thrombosis Personal history of venous thrombosis and embolism documented in this encounter [employer] Phone: evaluation note* Diagnosis S/P laparoscopic sleeve gastrectomy- Primary documented in this encounter [employer] Phone: evaluation note* Diagnosis Cardiac pacemaker- Primary Cardiac pacemaker in situ Morbid obesity with BMI of 40.0-44.9, adult ([facility]-HCC) Complete heart block ([facility]) Atrioventricular block, complete documented in this encounter [employer] System[employer] note* Diagnosis Cardiac pacemaker- Primary Cardiac pacemaker in situ [facility] Dis[facility] instructions* Instructions* Stewart Golden DO - 06/02/2019 Discharge Instructions for Bariatric Surgery You had a Laparoscopic Sleeve Gastrectomy (26707) to treat obesity. Recovery from this surgery [...] scheduled appointment, please call the office at [phone]. Call Your Doctor If Any of the [...] sent through Care Everywhere. * Enoxaparin (Lovenox) (Scottish) * enoxaparin (Scottish) documented in this [employer] Work Phone: InstructionsNot on filedocumented in this encounter [facility] SystemInstructionsNot on filedocumented in this encounter [facility] Summary Purpose Family History No Family History Records FoundNo Family History Records FoundNo Family History Records FoundNo Family History Records FoundNo Family History Records Found Advance Directives No Advanced Directives Records FoundDocuments on File Type Date Recorded Patient Assurance Assistant Expl anation ACP-Advance Directive ACP-Power of Snow Plow Tractor Operator Latest Code Status on File Code Status Date Activated Date Inactivated Comments Full Code 06/01/2019 12:33 PM 06/02/2019 3:05 PM Documents on File Type Date Recorded Patient Assurance Assistant Expl anation Advance Directives and Living Will Power of Snow Plow Tractor Operator Documents on File Type Date Recorded Patient Assurance Assistant Expl anation Advance Directives and Living Will Power of Snow Plow Tractor Operator Latest Code Status on File Code Status Date Activated Date Inactivated Comments Full Code 06/01/2019 12:33 PM Reason for Referral Status Reason Specialty Diagnoses / Procedures Referred By Contact Referred To Contact Pending Review Radiology Diagnoses History of pulmonary embolism Hx of deep venous thrombosis Procedures VL DUP LOWER EXTREMITY VENOUS BILATERAL Consuelo Delgadillo MD [address] [place] [address] Specialty Diagnoses / Procedures Referred By Contac t Referred To Contact Diagnoses Cardiac pacemaker Procedures Device Interrogation Olaf Cain, DRIVER SALES-NEWSPAPER VENDOR [address] [place] [address] Referral ID Status Reason Start Date Expiration Date V isits Requested Visits Authorized [id number] Pending Review 05/14/2023 05/13/2024 1 1 Additional Source Comments (unrecognized sect ion and content) No Status Records FoundNo Status Records FoundNo Status Records FoundNo Status Records FoundNo Status Records Found INFORMATION SOURCE (unrecogn ized section and content) DATE CREATED AUTHOR 07/14/2019 [facility] DATE CREATED AUTHOR AUTHOR'S ORGANIZ ATION 02/11/2021 [facility] DATE CREATED AUTHOR AUTHOR'S ORGANIZ ATION 05/19/2023 [facility] DATE CREATED AUTHOR AUTHOR'S ORGANIZ ATION 09/29/2023 [facility] DATE CREATED AUTHOR AUTHOR'S ORGANIZ ATION 12/13/2023 [facility] Reason for Visit (unrecogniz ed section and content) Status Reason Specialty Diagnoses / Procedures Referred By Contact Referred To Contact Pending Review Radiology Diagnoses History of pulmonary embolism Hx of deep venous thrombosis Procedures VL DUP LOWER EXTREMITY VENOUS BILATERAL Consuelo Delgadillo MD [address] [place] [address] Status Reason Specialty Diagnoses / Procedures Referre d By Contact Referred To Contact Diagnoses Obesity OBESITY, HYPERTENSION, COPD, HYPOTHYROIDISM, LIPODEMIA Procedures WY LAP, DHARMESH RESTRICT PROC, LONGITUDINAL GASTRECTOMY XI ROBOTIC LAPAROSCOPIC GASTRECTOMY SLEEVE, ENDOSEAL Serafin Shearer MD [address] [place] [address] [facility] Reason Comments Device Check Reason Comments Device Check Care Teams (unrecognized sec tion and content) Assistant Art Director Relationship Specialty Start Date End Date Lesly Melchor MD [address] [place] [id number] PCP - General 02/10/16 Assistant Art Director Relationship Specialty Start Date End Date Lesly Melchor MD [address] [place] [id number] PCP - General 02/10/16 FOR RECORDS PERTAINING [...] ON THE PRIMARY CLINICAL RECORDS. [facility]. provides no warranty or guarantee of the accuracy or completeness of information in this document.
[2023-12-18 08:25] VITALS: BP 112/74; PULSE 78; O2SAT 94
== END 2023-12-18 08:57 | disposition home or self-care (01) ==
LOC: VC 08:16
PROVIDERS: PCP Radiology Diagnostic Radiology; Visit Provider Radiology Diagnostic Radiology
DX: I83.813 Varicose veins of bilateral lower extremities with pain (principal)
CPT/HCPCS: 36466

== ENCOUNTER 2023-12-25 10:43 | Outpatient (OUT) | payer MEDICARE, MEDICAID, SELFPAY ==
--- NOTE | 2023-12-25 10:45 | VEIN_ITS ---
Patient Name: YRN RICARDO MR#: [id number] : 1960 Exam Date: 12/25/2023 Ordering Doctor: DR LEONID SCOTT M.D. RADIOLOGY REPORT PROCEDURE: [facility] EST [facility] - OFFICE VISIT FOLLOW UP COMPARISON: [facility], 12/12/2023. PROGRESS NOTES: The patient reports improvement in leg symptoms. There has been interval reduction in varicosities. The patient has followed our recommendations to walk 20-30 minutes once or twice per day since the procedure. Physical exam demonstrates decrease in varicosities of the leg. Persistent varicosities are identified along the legs bilaterally. Review of the ultrasound performed the same day demonstrates occlusive thrombus extending throughout the treated vein(s), see separate report, consistent with a successful ablation. No thrombus extending into or beyond the saphenofemoral junction. The patient expressed a desire to proceed with treatment of remaining incompetent varicosities. The patient was informed that treatment was a process and would require several procedures/sessions. [facility]: 1. Successful ablation of the right leg treated branch saphenous vein(s). 2. Persistent varicose veins and lower extremity symptoms. PLAN: Microfoam chemical ablation of left leg incompetent branch saphenous varicosities. Nurse notes, history and physical were reviewed and confirmed, see attached forms. The nurse was present throughout the physical exam and consultation Dictated by: Herman Patiño M.D. on 12/25/2023 at 11:36 Approved by: Herman Patiño M.D. on 12/25/2023 at 11:39
--- NOTE | 2023-12-25 10:45 | VEIN_ITS ---
Patient Name: YRN RICARDO MR#: [id number] : 1960 Exam Date: 12/25/2023 Ordering Doctor: DR LEONID SCOTT M.D. RADIOLOGY REPORT PROCEDURE: VC EXT VENOUS RT LMTD COMPARISON: VC EXT VENOUS RT LMTD, 11/20/2023. INDICATIONS: I80.01 - Phlebitis and thrombophlebitis of superficial veins right leg TECHNIQUE: Lower extremity nuñez scale and Duplex Doppler evaluation of the deep venous system from the inguinal ligament through the calf veins. FINDINGS: REGION: Right lower extremity. THROMBI: Negative for DVT. Chemically induced thrombus in multiple varicose veins in lower leg. COMPRESSIBILITY: Non-compressible segments corresponding to thrombus FLOW: Areas of no flow corresponding to thrombus OTHER: Patent varicose vein distal lateral lower leg measures 4.2 mm. Varicose vein proximal medial lower leg measures 4.7 mm. CONCLUSION: 1. Successful post ablation occlusion of right leg treated branch saphenous varicosities. Dictated by: Herman Patiño M.D. on 12/25/2023 at 11:30 Approved by: Herman Patiño M.D. on 12/25/2023 at 11:36
--- OUTSIDE RECORDS SUMMARY | 2023-12-25 10:51 | XMS_ITS | CCD ---
Author Organization [facility] Inform ion [facility] Care Team Providers Care Social Worker Delinquency Prevention Name Role Phone SERAFIN SHEARER Referring Unavailable LESLY MELCHOR Primary Care Unavailable SERAFIN SHEARER Referring Unavailable LESLY MELCHOR Primary Care Unavailable SERAFIN SHEARER Admitting Unavailable SERAFIN SHEARER Attending Unavailable LESLY MELCHOR Primary Care Unavailable Lesly Melchor Primary Care Provider [phone] CONSUELO DELGADILLO Referring Unavailable LESLY MELCHOR Primary Care Unavailable Lesly Melchor Primary Care Provider Lesly Melchor MD Primary Care Provider [phone] LESLY MELCHOR Referring Unavailable LESLY MELCHOR Primary [...] KAREN ZAPATA, LESLY To Primary Care Unavailable Obey Siddharthasivai Attending Unavailable Luis F Barnharti Admitting Unavailable KAREN ZAPATA, LESLY To Primary [...] Propensity to adverse reactions to drug (disorder) [facility] Repository Medications Current Medications Medication Drug [...] hours as needed for pain. 0 Active [id number] 200 actuat albuterol 0.09 mg/actuat metered dose [...] dose. Start: 07-23-2018 take 1 tablet by [facility] th once daily levothyroxine (SYNTHROID) 150 MCG tablet Take 150 mcg by mouth Daily 0 07/23/2018 Active take 1 capsule by mo [facility] in the morning levothyroxine sodium (TIROSINT) [...] aftercare (1 source) Drug therapy finding; Translations: [shelter (current) use of anticoagulants] Onset: 9 12-03-2018 [...] Value Interpretation Reference Range Facility .Auto Diff 112-11-2023 Auto Peach % 10 % Normal 1-12 [facility] Comment on above: Performed By: #### 1 [id number], [id number], [id number], [id number] ####[place] [address] [place] [address] Baso Abs# 0.1 x10 Normal 0.0-0.2 [facility] Comment on above: Performed By: #### 1 [id number], 4035778, [id number], [id number] ####[place] [address] [place] [address] Basophils/100 WBC (Bld) 1.4 % Normal 0.2-2.0 [facility] Comment on above: Performed By: #### 1 8578591, 6665989, [id number], [id number] ####[place] [address] [place] [address] Eos Abs# 0.4 x10 Normal 0.0-0.4 [facility] Comment on above: Performed By: #### 1 9390159, 9097903, [id number], [id number] ####[place] (DEFAULT)[address] [place] [address] Eosinophils/100 WBC (Bld) 8.0 % High 0.9-4.0 [facility] Comment on above: Performed By: #### 1 5991058, 2019775, [id number], [id number] ####[place] (DEFAULT)[address] [place] [address] 110[address] Lymph Abs# 1.4 x10 Normal 1.3-2.9 [facility] Comment on above: Performed By: #### 1 6663378, 2032530, [id number], [id number] ####[place] (DEFAULT)[address] [place] [address] Lymphocytes/100 WBC (Bld) 26 % Normal 14-48 [facility] Comment on above: Performed By: #### 1 3817778, 8935866, [id number], [id number] ####[place] (DEFAULT)[address] [place] [address] Peach Abs# 0.6 x10 Normal 0.0-0.8 [facility] Comment on above: Performed By: #### 1 0875050, 6381067, [id number], [id number] ####[place] (DEFAULT)[address] [place] [address] Neut Abs# 2.9 x10 Normal 1.5-9.2 [facility] Comment on above: Performed By: #### 1 4075210, 7294127, [id number], [id number] ####[place] (DEFAULT)[address] [place] [address] 10965 Neutrophils/100 WBC (Bld) 54 % Normal 44-88 [facility] Comment on above: Performed By: #### 1 6644279, 0518671, [id number], [id number] ####[place] (DEFAULT)[address] [place] [address] CBC w/ Auto Diffon 4 Erythrocyte distribution width (RBC) [Ratio] 15.4 % High 11.5-15.0 [facility] Comment on above: Performed By: #### 1 [id number], 9869420, [id number], [id number] ####[place] (DEFAULT)[address] [place] [address] Hematocrit (Bld) [Volume fraction] 43.6 % Normal 34.8-51.9 [facility] Comment on above: Performed By: #### 1 3387957, 0902397, [id number], [id number] ####[place] (DEFAULT)[address] [place] [address] Hemoglobin (Bld) [Mass/Vol] 14.3 g/dL Normal 11.8-17.7 [facility] Comment on above: Performed By: #### 1 5749236, 8979462, [id number], [id number] ####[place] (DEFAULT)[address] [place] [address] Man Diff? Auto Invalid Interpretation Code [facility] Comment on above: Performed By: #### 1 4183315, 8205475, [id number], [id number] ####[place] (DEFAULT)[address] [place] [address] MCH (RBC) [Entitic mass] 30 pg Normal 24-34 [facility] Comment on above: Performed By: #### 1 8326170, 9151929, [id number], [id number] ####[place] (DEFAULT)[address] [place] [address] MCHC (RBC) [Mass/Vol] 33 g/dL Normal 26-37 [facility] Comment on above: Performed By: #### 1 3676813, 2431666, [id number], [id number] ####[place] (DEFAULT)[address] [place] [address] MCV (RBC) [Entitic vol] 93 fL Normal 81-100 [facility] Comment on above: Performed By: #### 1 4117192, 2339423, [id number], [id number] ####[place] (DEFAULT)[address] [place] [address] Platelet 137 x10 Low 138-427 [facility] Comment on above: Performed By: #### 1 0364412, 9480435, [id number], [id number] ####[place] (DEFAULT)[address] [place] [address] Platelet mean volume (Bld) [Entitic vol] 7.5 fL Normal 6.3-10.2 [facility] Comment on above: Performed By: #### 1 5024189, 4017915, [id number], [id number] ####[place] (DEFAULT)[address] [place] [address] RBC 4.68 x10 Normal 3.70-5.30 [facility] Comment on above: Performed By: #### 1 3765615, 4820789, [id number], [id number] ####[place] (DEFAULT)[address] [place] [address] WBC 5.4 x10 Normal 3.5-10.5 [facility] Comment on above: Performed By: #### 1 4710136, 3676776, [id number], [id number] ####[place] (DEFAULT)[address] [place] [address] CMP Standardon 12-11-2023 eGFR Non AA 58 mL/min/1.73m2 Invalid Interpretation Code [facility] Comment on above: Performed By: #### 1 3049852, 9650050, [id number], [id number] ####[place] (DEFAULT)[address] [place] [address] eGFR AA >60 Invalid Interpretation Code [facility] Comment on above: Performed By: #### 1 5607249, 9523897, 9920538256, [id number] ####[place] (DEFAULT)[address] [place] [address] 33314 Albumin [Mass/Vol] 4.0 g/dL Normal 3.5-5.0 [facility] Comment on above: Performed By: #### 1 8290088, 3701838, [id number], [id number] ####[place] (DEFAULT)[address] [place] [address] 67268 Alk Phos 79 IU/L Normal 32-91 [facility] Comment on above: Performed By: #### 1 9155378, 5212012, 6789492684, [id number] ####[place] (DEFAULT)[address] [place] [address] 21391 ALT [Catalytic activity/Vol] 23.0 U/L Normal 17.0-63.0 [facility] Comment on above: Performed By: #### 1 4852925, 3866507, [id number], [id number] ####[place] (DEFAULT)[address] [place] [address] 72416 AST [Catalytic activity/Vol] 27 U/L Normal 15-41 [facility] Comment on above: Performed By: #### 1 8687085, 1710043, [id number], [id number] ####[place] (DEFAULT)[address] [place] [address] 50416 Bili Total 0.8 mg/dL Normal 0.3-1.2 [facility] Comment on above: Performed By: #### 1 4347716, 9888375, [id number], [id number] ####[place] (DEFAULT)[address] [place] [address] 07344 Calcium [Mass/Vol] 8.4 mg/dL Low 8.9-10.3 [facility] Comment on above: Performed By: #### 1 6390297, 6702538, 3899675558, [id number] ####[place] (DEFAULT)[address] [place] [address] 30325 Chloride [Moles/Vol] 106 mmol/L Normal 101-111 [facility] Comment on above: Performed By: #### 1 8681835, 4896348, 9654493594, [id number] ####[place] (DEFAULT)[address] [place] [address] 77295 CO2 [Moles/Vol] 29 mmol/L Normal 21-32 [facility] Comment on above: Performed By: #### 1 2928076, 8723566, [id number], [id number] ####[place] (DEFAULT)[address] [place] [address]37 Creatinine [Mass/Vol] 1.26 mg/dL Normal 0.90-1.30 [facility] Comment on above: Performed By: #### 1 8952126, 4499784, [id number], [id number] ####[place] (DEFAULT)[address] [place] [address] 67205 Glucose [Mass/Vol] 88.0 mg/dL Normal 74.0-118.0 [facility] Comment on above: Performed By: #### 1 5799802, 3843217, [id number], [id number] ####[place] (DEFAULT)[address] [place] [address] 24925 Potassium [Moles/Vol] 4.1 mmol/L Normal 3.6-5.1 [facility] Comment on above: Performed By: #### 1 1214648, 5983759, 2357126889, [id number] ####[place] (DEFAULT)[address] [place] [address] 79063 Protein [Mass/Vol] 7.7 g/dL Normal 6.5-8.1 [facility] Comment on above: Performed By: #### 1 2167985, 3884533, 3380330697, [id number] ####[place] (DEFAULT)[address] [place] [address] 94975 Sodium [Moles/Vol] 137.0 mmol/L Normal 136.0-144.0 [facility] Comment on above: Performed By: #### 1 5856700, 6379112, 6999839078, [id number] ####[place] (DEFAULT)[address] [place] [address] 70198 Urea nitrogen [Mass/Vol] 16 mg/dL Normal 8-26 [facility] Comment on above: Performed By: #### 1 2136616, 9365324, 9479128499, [id number] ####[place] (DEFAULT)[address] [place] [address] 73494 Albumin/Globulin [Mass ratio] 1.0 {ratio} Low 1.4-2.6 [facility] Comment on above: Performed By: #### 1 5837994, 3699751, 5457243216, [id number] ####[place] (DEFAULT)[address] [place] [address] 22607 Anion gap [Moles/Vol] 6.1 mmol/L Normal 5.0-19.0 [facility] Comment on above: Performed By: #### 1 8062569, 7559085, 8446157975, [id number] ####[place] (DEFAULT)[address] [place] [address] 53204 Globulin (S) [Mass/Vol] 3.7 g/dL Normal 1.5-4.3 [facility] Comment on above: Performed By: #### 1 5889391, 9630943, 9502564564, 4285893950 ####[place] (DEFAULT)[address] [place] [address] 81618 Osmolality 274 mOsm/L Invalid Interpretation Code [facility] Comment on above: Performed By: #### 1 4871166, 3748034, [id number], [id number] ####[place] (DEFAULT)[address] [place] [address] 66441 Urea nitrogen/Creatinine [Mass ratio] 12.6 mg/mg Normal 4.6-16.2 [facility] Comment on above: Performed By: #### 1 2651487, 0522898, 2213481317, [id number] ####[place] (DEFAULT)[address] [place] [address] 88202 Lipid Panel Standardon 12-10 Cholesterol [Mass/Vol] 150.0 mg/dL Normal 66.0-200.0 [facility] Comment on above: Performed By: #### 1 7597142, 0457158, 4474313107, [id number] ####[place] (DEFAULT)[address] [place] [address] 52903 Cholesterol in HDL [Mass/Vol] 51 mg/dL Normal 40-71 [facility] Comment on above: Performed By: #### 1 5643651, 5454203, 2570805974, [id number] ####[place] (DEFAULT)[address] [place] [address] 16889 Triglyceride [Mass/Vol] 73.0 mg/dL Normal 0.0-150.0 [facility] Comment on above: Performed By: #### 1 7154949, 0223526, 4416106731, [id number] ####[place] (DEFAULT)[address] [place] [address] 80703 Cholesterol in LDL [Mass/Vol] 85 mg/dL Normal 1-100 [facility] Comment on above: Performed By: #### 1 6895759, 4409083, 2787675950, [id number] ####[place] (DEFAULT)[address] [place] [address] 81772 Cholesterol.total/Choles terol in HDL [Mass ratio] 2.9 {ratio} Normal 0.0-4.5 [facility] Comment on above: Performed By: #### 1 3012931, 8857884, 7442662268, [id number] ####[place] (DEFAULT)[address] [place] [address] 76721 VLDL. 15 mg/dL Normal 5-40 [facility] Comment on above: Performed By: #### 1 8501594, 0581305, 1760329949, [id number] ####[place] (DEFAULT)[address] [place], [place] [address] Provider Orderson 12-11-2023 Provider Orders [id number] Normal [facility] Coding Summaryon 12-05-2023 Coding Summary HTMLBase 64 YgqxjltqHQb6iJr+PGhl YWQ+PE8FNPYpE57ruHIv nS8mL3ALUYcXJqaaCYOC SXiEWfKhuvGlVW1gfCGc ZXJu IC8+PT4yRYAaQqoiaBJg j5C5jNR8R79ibx3aYUwx bAX3IQYyZdCebcsue2ja ePt0TFlqQirpOzSt MJLrfM42QPT3wZ75Si54 mKTogZVqk9xheMi5UpBl APLuDSZ9tCvwATjdo7Bf EUElY69anNNsu5W4 IGNvbGxhcHNlOyBlbXB0 gM3sAMjykoldq1qjfyph Gwp2br64wPVqi5Q7uDH9 V1CvpcT3BPDfvODx AgahvMUFtI2axqikl1mv hkmfItGzHNZbRYh6EOe7 KXRanDngCkQtLE76RCJ8 ZRRsduJqR7VcNPWb sMsrLiK6q7V6Ol2HS6NU AcfeN7DXBCYXRYwnuGP+ RU66gl20G2JsWowiUhd4 QTQoELQ7nGA5lP6y NUIjGCmtx3C4dLY2C1Jk miLxof0jj8ctXQEoVAsc T16ovABud8X2RUQgjJA3 UAQadXohOdLwbG19 Oyc+KPWtlPikz4TxJofc j7xpc5vobGh0KofuXZUv cmYimRzsHOE1r8PdHs3t FQIgfIK8xQB2eL2j BsAdJwU5RNijS596TvQw vNRbGipuA34gL4AqbAD+ MHFmYwy3JVYhhNlcSU6d X1RhBKAiqmayxNYv vImcJE0eXSUqcdkiFVKz gV6sXYPaA8d8LwQyEiJ4 OMzjC8WoBZYnxvbnOc15 kI5xQcOoUuZ9IXtd N3XzafJ8YZMhyZTiYCuf CTT4A88ir4Q6KQNkANWe YDY4kMB2lK4esVusafua bGVmdDsgdmVydGlj RYyuFDzcR962QNUxkDth PkNvZGluZyBEYXRlOiAg MDgvMDEvMjAyNDwvdGQ+ IVBwUTK9pCptYNWy mXYzBMzwGo2ttMztnJiu VO9pTDRgpwtkEJWjxA3y DANgeERsrJdxJC8xGJRz tdvzu415NbRzZDK5 GWHkdRZpI4UylQ3xQeQq XHXnSBNfA1GqlYNaHViz X964FTrrRjE9ESIkijBw C4VtBIQjzMmrUwL0 f5K1Fc5Hd6VbjoqzZ3Mb qTHcQsQgJevjVUj7G1Dn PjwvdHI+OP16NDLzPU32 RHy2KIK7rKbkWXbl TXMeM7PhnZ5fQqScTAZe ZGRkOyc+PHRhYmxlIHdp ZHRoPScxMDAlJyBzdHls WX7zKd7bXVLsNKAu uRfwfSOjTsDgl9wgZQLp LZjpZM7nsRelZ7ZsaXE5 AUYjg9w8Fg30J60fM9Ck dXA+UNSynIC9aRR7 rS3kYfMnUqC4JUqzA511 ZyMweGMkMjncs4ian4rq oLd2QzM5KWSgzoQvhSsx MHV3d5CpIk30I94p IHdpZHRoPSIxNSUiIHZh hRnahx4gpD7xLn5+PGNv zMI8iTX1yE4gCzCrFmM7 MWklN997IiUwcWJk Boflg1qov0iikNn3AsHr LLImiyNfpZlmYLY3f7Ra Nv47X2UlwWaib1JuNik9 uo62gUMgg0E8uML2 R5WzTMJlnfdoeECgdOgo JV0tVJWocfwyGKMtzW5c MIVmF3p3HpVtQyY7BVht E4KwukH6XNWpwPKa DHLsfPXCmX7djvnfr1hq qsqfJfBmIFKxBWk0FUx6 POKhqRlsQuAyKEO3WkO1 CSV8oGVlyL9wqEqu kowtwF1jUvi+BWR3wWFs zDKHFY7rUivnoXX+PHRk IPI8rVnlZKchABTboN4j CGQzP6t6GpTwXnG1 HIphV2OygjB8VAWsaWRm GPNuwEXCeK4pubakn3au ygoqAhGkYEAdBGq4BKd9 LWFsaWduOiBsZWZ0 TzI3CCX5aVHhfJ4iwRvt hveraE1tQhr+QmlydGgg PZV6MRu2O5NkIvs9LWVb bQowQD6efTEcELys Np0ypZaxqXnnGV2bNCKq qyiqn667BvNhv9vdHFJm gWLiJXjwPKN7V98vq7H7 FUXjKJHxHOH2tNS8 jH7miYtqehdtcGWfyGbg naClsSusGVrjTTkyP920 LCHbgUpqNoHeLMd1V6Qy Ijx2NXGreBafYW1e nPMgJSqvWb1unVpwkZlu BM6vIROnankne301UtBx f1nqNUPqdWJwEQenHUI0 N10yq7Y1NFGpXEXe HCW0wWE6fX5lxVsdrtlv bGVmdDsgdmVydGljYWwt GSvwX439IVQnwStvBjPl xWh6B5FrIml7OHUs hFqeXA8cxBVbGThmWx5y tOmbtGczPB5nNJIstoux t496RgRdd1agASMdaUGo AGiwGYX5G50mb2M6 SPLpAPTjOKZ9yFI5sM2a bGlnbjogbGVmdDsgdmVy aElkBIoyOUaoY207XTBo cDsnPlBhdGllbnQg SSshZYc5U6RbZwkonPM+ FT64GMGdVY33aPDezGMf p2wwvQf8NtIeIKIyJFD2 tHdnJNxmr3LsJDPn F88ksTPsu1K2FHSodMev gVYuAuCjnCX1oM3lAWmh zmtpk2dfdyrtNyzth4be kc62gD14Y89jKSom ZHRoPSIzMCUiIHZhbGln av3xzQ3rEu2+PGNvbCB3 tFA5kP0pKLTwJdA4SVwg B747QrNerALwUdnv x4khp1zmcAn7IeD4PEIg qxSykOczXKY1s4XmPc00 B27yDIuzSYYsCYVmDDCc YDKigEwegp1waO7u Ii8+GQOizSU9eMK1hD0p ZgOpUvT1GGunT360NhZl bZGcChtpB60eJ8ImcJP+ QWAyUrw1QALzxVzc KL6dpRDrQTniDo7dSZT5 NwRgEtDrOUpgC0PpKKYl wpnctlydwHF0JXUcTKSh wB47Ll9lrLurNWSy oVUVjY5fwaprg2zmcoyd GbDsKEOkCUl9FAg1QBDr sQsbLwQcPDT6NhD2BYT0 fWPymC1dgCjppwug iN6mB7LsCSCpuvxbMz66 mJ2kRhAxElB6MEujGtp+ G0KINrhcYV1KB2yATYln SzwvdGQ+PHRkIHN0 kRkwNKunPDIcyL6wTJHo Q9r9CtOrQpQ2RXluT7Rt AMYvkrhdJx92lX7oIqPa XmG4YPzzN6NntlU9 UGHbsPBuJTytVJD0H20r r3V6TEHnOOZiCGI2vJA1 hK4jtUasyvpkiONxvOyl dmVydGljYWwtYWxp I565AESizUldJeZzUfG0 UyI8UpT3O7NfOyw1IPZw tCmrSN6cfGStIJcdMf5n bDgjxDkcXC2kOUQg kzgaIMQuvF6aQJYegTVn tRptCL9qFRIqacepz428 DdXpOTB2BRKagBLaO7Gr sN4vGlTeUNUfQUHs X3BbvPCrFCxtK484BDap EqK2TFZoldRpY4WgPUAf rWwlKzJ0d0C4Wa13ZGMT ZWFyczwvdGQ+PHRk YHE8tBqgMPetKWVahH1d HMBgB3l9HvTcUvD7NNyf X2QbFDTahvsgZi94dX4o HuVtTzD0MKveS5Jf bpZ8NTWkzRKpYAzwIZR6 F88sd8T1WRPuIJWmDOQ3 fDV9vP0tuMqnhzucwRIt dDsgdmVydGljYWwt CUjlD302GJOhrRfuVk2V JEK0I2NyPnp7BIIvkByh ST6tmZIcNHuoZw4ohDpm cGafGY9kVGIgjebi CUDghJ8uCHPdgBOerRpj MI4yKYXzmnkdm522HdCe RBV7YWUouCHfN6ZwsD2e VxGpDALmHCMlT9Dr xUWoHEkgD896TYyzVeU8 HMIeraHfJ7TeGHZqjGdk NyU5v2L0Xn2GOIbqaXM+ CI68ps66T6WjXxjp Ukx3PHCvIFC6bNX0zD9i NBMoCEnxj3Y5uVU7C9Sd apCntu5is8zkLUAhKBzt R89ufEEpw7R4DZEm lQF3NYMecGxmXzPtdN76 Oyc+LLXboMlhj3AvJzbo x8rgb5nogBs4MeBkLIOf npVujBefNVM1e8Ht Yl73P66eOMlrEVXzZAJd PIVqWEWmlAywqv3bcD1x Ii8+DHNzpJR1eTS0vQ0b AvWsCpS2ZWkpF973 AhXftUKqYeltg7ged9de qEp6RjFpJYFwbrFimQmy IVL0j0QiRy48U9IvsPyq n1SzSfl4ld47lERz l3N4wYX6J5VzCNHtnbyw dLEevMmjIH4lMCGvsile WIGqvW4xLGBjV7d8OaSh DnB5QVvxI8UgoyQ9 UZYgiQAhDLVxaBVDlC4k isxoc5fbgufpPwDaTJWi YVh3SBn2PTParKfgPcAo AXH7BpJ5NHB9qEYh aF7wiClfuepwfM2vUqa+ JIj4j7fhoQDfNJ7nvZI0 UN51TE21fUOff9G5uIU2 E4ZyTMPxnofeujgg jHG6SDTtVWJisM75Kl4n sMcpZx5bZVLsTRY6HOBl lMVvK3XzpS3iMzIxCWOr QPVdB6IwoLDgBKza F725FTrtSvE5KMMrxdMc T2WbNSZcuZkkZtG3n9K9 La3TRE96JG54YQ08eDAi s3Y3fZN4U5OzUXXd zvpxwaozfAE1TRYhJNEi lT07Qg8yeFkiVg1yCWZb FIJ6AZDzvRYpK4QrgQ2v OgKbGCWpHZXlG4Ya eZWgNLumN461PIfbAsL6 ADSwqoLhM3IjVERzeWxo GsV4t2R8Zq7JJn88VV10 WR21iSBmq8U3gQX7 O6FwVFVnmwaeixxslHL0 SBGrZIEvlU12Ro8tsOwi Xx1gNWAfHLA8UKKiwKPu G6QjlE4nWoIvJBJg ELFlT5OzmJPdOYnjU659 BYqjCsQ4VPJhdgCkA1Uk LOMtcOmtPnR1g4O9Ia2G BFvbfol2I0BvAsjw dHI+UZ00PHPuVZ04wOOc mCEbz7jzqAu9IuHeLEWu AIC8fXcvIOiwe7VlBVSr W23apLFrn7I4GEMj bGx (more content not included)... [facility] Coding Summaryon 12-02-2023 Coding Summary HTMLBase 64 FvylcjkeQTa5xPo+PGhl YWQ+OC6WDFYbA54kwVGi wG8tQ5WKRUwGPwhfBWKK OImJSmFktrRtDF4emDFz ZXJu IC8+EW8cFHVsJarfvBXn a5W2eMK8W08iwt6iBOph oNP9PZTnQaKvhroqm8am fEe4XZdoHjunEnAo YPUsoC17PUN6iI89Ci28 lSQcdCJkr4zvoEa1JcQh BVXkFFI3bQxkCRipr5Bc OVXwD46wpUQdj0U1 IGNvbGxhcHNlOyBlbXB0 qI3uXViiwrzys9xvboks Xcd6ns52rUGej1T6jDQ4 U5OfiqP3IGIidWHm YbscjHUIpV8nvdqow8qu toffWwTkQEUbBNh6RFz0 YVMxkVsxWwOqTM09MMI0 AJPugmFyD2GpOXVp eXhiUhU5s4H9Hb9ZY1TR IvodC7ZPEBWGZAsfwCE+ IC86kl65K4BvCxdkRtw0 VLUwBEI5dNZ1oE4k JRXiQLfel0S0mGL9L0Ho bkIwmv2qk2ckKSQuLRtk H36ptRHcb5I9PNIpePP8 UJXxlKavMsVcbP89 Oyc+QXZbpBkyk3IcVosv z4tgb6kcnSm0IuqiHUUo ntZutPzlVUU8l7TrTt0x HDRejYY9mFJ3dQ7z LjSdCmC3AShbT915SvHk eXLbElgtL90kE2RmoIA+ MCFvVrt8RHFfcHdfYP9b Y3AdFUSapgyxzKMt gUwrVU0lNPDrdgbrYOWk xU3rWKKjJ2m0XtRfJoJ8 TWfaW7JaDIMgdnobDk01 vQ5tNzKzMvO2NTpc T8JaqyG8AJBreNEkZRci ZOH7A11ll7Q3ITFeALEg EXH8dAC9sZ4qiGfrficq bGVmdDsgdmVydGlj MRldEWdmR351YBSigUht PkNvZGluZyBEYXRlOiAg MDcvMjkvMjAyNDwvdGQ+ NUAfQTG6tYxjESNi oQBlVIahUz1fwGfiyUqz LS8aMKCdxwvzDLUfpH9j VYTkzUJixRmhTA7bOCUj tiekh606IzMgBWF2 PYFyyMJvJ2VgqB1rXkNp UUKiSTZzN6PagTWlQCbb T499MHtcKhN1WFBadrWj Z4JjPSHruUgdXlB9 m5M9Fx4Uc6TkboftA3Wf fBJiYdOmTfiyGOz3N9Xc PjwvdHI+WR38IYJoZT68 EAk9OVF0kHtdOBkx JLWmX0JavR6cCgVuAFYy ZGRkOyc+PHRhYmxlIHdp ZHRoPScxMDAlJyBzdHls ZF6rLe7zIBWzEKMm jJuniOEfWmBfr2ajBNPk OCwiUF0hpRcaW1XuuBM7 WCHom4v8Hp22K38bN1Ut dXA+MRRewUZ3xCV8 oD2tFlIoHbO4LEhqT251 PzVisJZnDhvlq2bew7ky dJe4FeY8TCFgagExbLik FNZ0x0TfMg77W31e IHdpZHRoPSIxNSUiIHZh hNllpf6jiU9pEi0+PGNv lXA9iKQ2mU2dMiKmEkM0 PFymE653NrIdpPKt Odkmt8uxa1aavOc8YeAi GBEsvmLpjKwzKHR8b4Xr Qp13A8TxiCour2UyVov7 oe43mKEjl9H9hJD2 L4VfPMUjirhrvYZupLgv YC6eRHLotadlHURdhF0b XQOjQ4e5RuJeUbM2CAjo F9FseaD7KBTgxEZw AFQtoWQBvG9nrqgzr8og dujzRkVmYWAxYTp9LJp7 LZVixYyrUjWuRJP2VjM9 TUI2rGPgmN4lzPag xjxzkD2iFhw+ZAO8yEJu rRPCBN5sImshhEV+PHRk FAC9pFunANevNYNyuM7u MMDgZ0a9LtBbDxX5 TGxgI5MmoqH4VOWnkJQs SILdtIDTjW8rlodju9gl aoirHzBtYKGeBRw9IXc5 LWFsaWduOiBsZWZ0 HlE2HID0eIAmjD7twNoo erkhqF6yGyu+QmlydGgg WPN0BRz5O7YfIgq3LURu qQklUR5xrIOeLGlg Ut5brJxhsYyiCH8xFUPy ndplg784BxQyp1rgQMFy dTMfWPbwTYA3D45ap2Z0 MZQeEFLhIPC0aPZ2 aZ9zdBlxbxvyyBExfMsv stQgfZowGQojJTslP261 OUJedOxjLcRzJMp7L7Kg Kzq4CLJyyNgnKG4j dFZbWMpgQx6fwGfleAyb KO1jTSRjxvuih195JpPl o6laMNTdtJLjBQrsTBN8 T47ql3V3BDDgDGSa MPZ1kQM5mT0viYtdhmnd bGVmdDsgdmVydGljYWwt NVyzD018SQMsyAfzBlLn rIr1F3UgZdd7DERq dQjoOF5uiCFaKAezPi6s dAoioSfoKC2iJCItpqju f210FrCpa9qrSHVcwHUg SMwnNAV2J18iy1Z4 PSWxTTWsIEV7pIM0cG7r bGlnbjogbGVmdDsgdmVy rMxcRCeiUBwzK342USXb cDsnPlBhdGllbnQg GKjcEYx4X4IeChsrtBV+ PH42VCMoKN31mNQvoXGd l5nlaCh6OnYtOJCgXID9 yJokVPjhn8ItMQJp Z07xqLAoo5L8YMIaqSwd aDUlUiTbyLQ5sT2hJCxa yjrad0vxqgciUmmbr2bb vn30fH00H55uYNku ZHRoPSIzMCUiIHZhbGln pj5uoR0vMu8+PGNvbCB3 iLZ6bI9xUVBfCqA5TZkx L011FvUrjHWtYysb p9eyr8ligJz9EyC9ZHKc atYklValUZL6e9OeZy55 R26tCExqGQIbTXUsTZAj GIVkeBrpdt0blU5o Ii8+BVUveFW1mMW8pN2x PkGnKwJ0DTjsD594LiHr lAAuFijiZ89dY0QxxHU+ HHJbCnp9DHUokRar TX0gbRKmMSslFd7tNPZ0 IdQdBaJzTGdkW8TpVQPo auuziatqzQA7PVOjEJEv jR34Mf6tdCthONSh qLWMhQ3sircmt7mcevjp HyCfOCNwRSl4ODj6RYYb yXinAcCwFFR0ZhA8BVZ2 uIMplG0ayWnvflaf rX6vY3ZbIEOlxqmoZf78 uX3rYnFnOvV4SNqiUvp+ I4JBOlszWL1TB1lQICnt SzwvdGQ+PHRkIHN0 oLhmYQtsVYDpaC4cHHVf K5o0VrZrWtB4IGzrX6St VIQxgajmEa15cP5wMxRk QbL3YDxbE7YddeQ6 TEYpvQCxENnzNOU2Y10k f7A4XGPvQGTwTIT0xPP7 qA2vvDohsobhpZCwoLvh dmVydGljYWwtYWxp T478LECjsLgtNiTyKoO8 TuF2XpO8T0KmLof8TAZs uAeiEF5upTKcNJfjBi0r jLahwPveTI5gEISm zkiqBEYbdU1dWGVroKLq sBgeUS9xCQMgvdqbd749 FbJbIKZ0QECnxTOjL9Ge sR4mBiOlSCOmHXXk V7DflKQaLKsiH121YHge TzY8EPCvhhCvZ8DwZHEa bKhfVfV2u1Y7Oc87QTNI ZWFyczwvdGQ+PHRk PBW0zXfcOVmoGLDbiI8o UUXnE8k7EdQcJnO5TThp Y6BjMCIbqjoaKb76iB6t HnWwMdD6DHhmN2Eq xrR1QNRyzUOiTRdnOBA7 P16ab8C6ANQuNBFaCLB7 yWH6lE3czOkwmnkvhVFi dDsgdmVydGljYWwt WXkxP321HDErtYtrAa0M WPE6F7TmUlc1WWRdbAsr BJ3izTXsRMvdNi5nvSjx aElzRO5bTBTxpjcq GNBzvB9dTHBxsBUopMnq IV4qTCMunbuvp420EdCs HZB2RVMekODfZ8KdnY1c CeNyFTBtOKSzM8Vg wTKmEHvjZ069ILdxWoR7 WWTnidIsW0QxPLErxJni GwL5s1S0Zz1CRSumnYO+ TT15nf90S5UiOlso Kxx0UBMuRXR9kDY5uQ0k XETnCWboq7U4qZV6X0Zy geQsdy7ho1qvVJEdBEql R18lqIPfa3C5SEHc jPM0WGRkrJymGkAjtR69 Oyc+IFPvpXhez4CgHoci j9fuj8effPb9VgVzMAIj pyHidWfiLSE8n8Eh Zo48G43mSXviFANqNARr XTPbDLMsqTsnmz4fbW1c Ii8+YEHgbHX0wBL9mX4p UeIuLjE2OGckS986 KhKhdFJzLmthy2cqy5lf tTf5RdTeBWOzdhUooLma ZSB7v7FxDf48F0DptVdr e6NtOep9uj25tOCw z5H9oHJ7T2OhMCRgpwjz kNLpcGguUQ9fJAXktorw USAruL7kPRJwO9d9SkHh WsG5YEdvE5UhzfB2 KGRtoFQcLJTdqQFOhK5d owxdr3fatavoIgBoSLSe BWw6DWf2GROucHcdXnGd YRA2YvH7OWE7vGRt cO5soSyzlnrzfV3bUte+ PFd5z3zcjAUbTA3pdBS0 BU67ZV23lPCie6L7zTY9 N2GpRRBvfswvtzmp gMM0DMNpAQIonE40Id4l jOhwHg3qSUPtTYB4YGIk eTNmR3TmrU9zUyQdEEEd JHYeC1QtsQCsLAbw S622FCrpZtJ6LPFkbnQu Y8WyFSRjfMjaLnB8m0Y1 Mg1XRK19VH90WJ92lYHw h0U9eNP3F8XmLURk mikirgwayBS6DLLyMBEd uK93Lo2gqClyDm1mNTMf LSY8LFIxiLSfG6HklB9i NeFgPQNdTOUtS1Em bMYhQZagW071CQvfLxB1 SAOfliElU0IbZTHumVaq KaY7f2M5Ft6AQk46EQ71 CX00cEXlg8P4tSW9 H0CmYYIawwfhnlvujFF8 XSPwMBZksY63Rc5emJjs Xu5fLBOiLAH2IVEpyGFe H0VleM5mIwMbVSOa PUXvD3RxyQOsPVyiQ650 SXrcUwN8HRQewvQtD2Ci AAOveBmdEiI2r3J1Ge4T GWawgiq9K7HyIjbk dHI+IP87WYBlBC01uYOk nLAcq0zhdXy2BsBoPAJs SNY7kVhtDNxmu2AcUHDb T53ghCLbm6T6ZVNi bGx (more content not included)... [facility] Wound Care Noteon 11-25-2023 Wound Care Note [id number]# 1.00OTGTIFF [facility] Wound Care Noteon 11-18-2023 Wound Care Note [id number] [facility] Coding Summary HTMLBase 64 JfkszncnYIy3tLv+PGhl YWQ+RU4AJYRwN52gaQMh yB6pT3WDOAtVRulhFMCS AEhYQaKonzEpSM0psEOy ZXJu IC8+KL7cVTBzSlwzxRDf m8E1gUW5C79piy4qRDop lTQ4NRHoEkQfbfdeb9ac dXg0KBbeJnjxQeHt YORzgT59TAY1vT98Zb13 oBGplQQvp4ahyKp1KhDk PGQvDBG7zWbvYBpmq4Co YUAgR88nfMNog7D5 IGNvbGxhcHNlOyBlbXB0 pU5rDAbjvuvtx1lkklis Jfl8su95cYTsh6R8xKH3 R6CyriB1XTGtaEPs RkgdgLXGiU1ncajoq8bl ahmrTpJjZLYcQIt7BMw0 RGUwkNwlKqGzZO52HRH7 AIFjdgOdU0WsGGKd pBozPrI6c0L3Yk9WI8BY ExirB6TSAYJMIHwyrLP+ FJ11ym60Q4HoAyoiRoh7 KXKlBJD5cPA0nW6f WNAcOMmlg2M1lNT5B4Kh reCuuj3by2lwHFTlBGqv Z21dxSWqk7V0IHAoyMR2 HJVjlLsyCuGufY57 Oyc+HEYmtIoxi1RjGidp g5tih3paeYa4HdqeYVNp fzCiiKqtYCA9y7BgJc0j QIZqwWJ2qFK8fU1y MnSdGsO3DAxuX956YfJs wYVpYyitT64jA7MyiLK+ QHImTlf9ZNTcxSbhZU2c F5AsFWHcsdaqqIHs iCutHF4iHVItxrqoXRZs qR2wLCQoL5l9VpVgSzG9 ZCxzO9XjLFZdgvkuUi47 lO2uFsRiMxN9ZRqr K0VbdmA5OPUukKOlUWob AQC4D05qr3D0MYVsMHXa JGE8kOZ9eH9xrPzwcrlg bGVmdDsgdmVydGlj WBmaNScqP417THMdgJpm PkNvZGluZyBEYXRlOiAg MDcvMTAvMjAyNDwvdGQ+ BOAtHFG3cBsiTJOs jOBbSXpyJl8cfIzjxJsg XJ5hDWKisqxjGXIviT1m KMPrzAOsqHhaTF9aTUTp qtdxj461FzGkZQW9 TTQveBNeL7LigL2yBtFq NSOgYLWgK7QbtCOiNUcm J867UVayEbU3KSJiiyVd R3PaCTCwdCiiHkU2 m8B0Si6Gt1XqbqiaZ7Od lVOuBqQnSgjxZNk3Z4Gt PjwvdHI+JY95MFPjMF92 VHx2JYV2zSbrTHpl TMBmH3LqfI5oYwQpAWJo ZGRkOyc+PHRhYmxlIHdp ZHRoPScxMDAlJyBzdHls KK0oSa2aPNCuTBPq vPtcaUHzJbQll6flQYVa SSdzLG7bdEjdB5EqkBB8 TZWra1z8Cj20U29yI8Fs dXA+APQyvTY9cDW4 tV8dWhPpRbB8SCnbQ796 JpDbbTChGivnt8who9ch jAb2OzO5KFHqxeSkyPxh YBA4r9RyZe93V76f IHdpZHRoPSIxNSUiIHZh kFzqxr2voY2tKh3+PGNv uZC9jYK6wD2sBaUzBoL2 RQdxY091PfKcyQNi Kvzhx7uqz6dlyWk2NtDd LJLqtrItlVfuYUU3u5Uo Zj44I4JgaIbzg7VqZev7 mo77qELmu8L5nXE2 V5YlLQGocrydkUBxbCjd CW4rLMUuwdluLJKuaU0d BEYbL3q8JpDqDbX0JUeq S6VcdxF2DXGhsAXf EMOfdYPYoE8hjirfm3kx ovdnQqMfKWKmGBj0QFu9 YJOexFycRmIfNTW2LqR5 OYU4sTFbaF0ybCql gbhfgX1lNzy+LFB8rFSt kKWRCS6pIjsxnBV+PHRk NQH9dErhLJhfSXGvhP8d KMByV1t7UeOoGoM4 MFviN5QwpdT7TTJnjFYt KSMcuPPZyK5mpsmfq9xa mgczPhMhMYDxLAr5LDm5 LWFsaWduOiBsZWZ0 WzW1LPH7hBTzvG8gyUtg qfnllU7wZvm+QmlydGgg GER0ZHi5V6UzJes6PFYf pOatGD8ajPNiZBxl Wr4eaQlqwTkzQW5fDSGd rspnx802VyByy6maSTNm iFCfXKvvCUT9F44ll6K6 CYOiYRPgPMY0iJD6 tW8pnBxnqviefGZgyJiw yeZhoKaaHBlbXVoaY372 HAHevBpgJtPaHCt6D4Zk Hcs4OJHrfBccTN8a wCXoEBcyAj1tiMqqgOxz QA3tIGQmomsgz191WrQe f9foCVMxrBJfODxdRKK6 G83gu9L0JFCyPLOr UYM6zRV5pS1hvLnrvpvd bGVmdDsgdmVydGljYWwt HOtdO077UGCgnSqlYwPz nJs1E8OrSuv3TFBo uGgaTE9uiQUmROsaPc3m kQrmeGgrVU8eKQBdcnte i292FfTln5dvXJTmfVEx NWieGKK4O01ni2U7 QGQhYRJlMUU1vEF1mA9h bGlnbjogbGVmdDsgdmVy bPjvHPaeMFlfF452IGDc cDsnPlBhdGllbnQg OYbaWAq5S6GzOchjoVW+ EK27HVUwMK53fRAmvVSk x2xqqFq8MuEwXHXvEID4 tCogGMjle8DpAPZm A85kcTFep0X4CVCxmDrn zVKjXsQpaXS7iH0nRSas elgje5lauypfRnhwt3tc mr83cE23Q29rDGdb ZHRoPSIzMCUiIHZhbGln yq7ydT9pPv7+PGNvbCB3 wGA1bV7iXVHqZaF2XRwt N854KdZszHDoZgiu l3kof5tcnXf9OwK0HCTr dqRziPykLLU2y7KgTs21 M57bOIwiGQHnTFXmDPDl VNYblCikfh3pwB5o Ii8+PBNgsQT1aEH0bS3u DlCcZtO2YVwfC059IyZn hRYrNwlgO78uP7PloKW+ XVOzYpz6CJSmvWzq GE2edNPzODoqEq9dFQV1 QgHlIdAuLIpvF8MdTQQp qhdefehffSY6KELmFTYa eZ67Ye4dqDvqIONq sRECzD4qcdgev7hsomvs XpIzXWDpWNs9UNj6PESi cMceZtOkAAD9ObN6GER7 sTXdyI2spKkvohkr pS6hD6QqEWMtqmmlPk66 zS3mTeOnGbZ9BWqqFec+ T4HVZpdjPV7XZ3mBNYsx SzwvdGQ+PHRkIHN0 yTuuBKpoBMFssM1kZFMp P4p3QtTaPyS2HCxlN9Ry CYZqxilrMo31uV4gQbDj OwW4MDqkZ5ZsxbA6 OUYfuFEkNMitHHA6K02e i3R0RRJdHAGpWRH6jVO1 rT1qdMjraolkoHRdzJpl dmVydGljYWwtYWxp S093BPNcmQvnYtVfJcE8 CiJ1XbV6Y8CsLfj8LPXz zCrmSM2koYJxZXqrBq5m eCsraUfePJ3iZSSs uzxoBUXrmA6bBAGvnWPh eZbiPE2pQXBwvegyd301 PtIuPDQ6VSWobGPwZ0Ak uZ3yDgVwVQYgQNZf Q5LrrWFqRFklO750PYrc YeI1QFJieuJaT2GdCBYl gVusXgC5f5C5Cz49CFKY ZWFyczwvdGQ+PHRk XSF2xDblOTsjVZEkoJ1v RPZmK8a3JnJuGzP8UHvo A0RkNHDymcxrGe33sA5n WbDyVmD1TTgxV5Hr lbB7BCCtoCNbUNemYIC4 M31es9A8QVVoXJZhAQB3 dQZ1xO6rbFdmnuodqXNy dDsgdmVydGljYWwt PSxvL395TRHagWheFk0N ZOO9X5LlSkv9OXAkjHlf YD4bxSIfOSyjTm7azFil uTkwLI0eJBDpzjfo PCYphP0qGEXqlUJbhGzt ZN8bHAApepknz934FnWq JTG0PVZklJWnF5ZjoK5y BeKfOWAwTTPjZ3Jj mSPrSSlnX569IJluVtB2 UDPprpOtF7LiKTXwgJvk PmS9n7G9Vp2BSDrjkAH+ YQ91cu15H5LhYagi Hxj0FJKuGQY3bNP8wF4k TCXrXXjdb0B5kVS2M9Yx csLltv6ce5jrWNVsIMlt F34pbEZul4Z7OWGr iNX6WOUflNbdMaFthP01 Oyc+NCCswMyow3AaTnae l0oic3copUe9EqLnRTVd wwYdgClnWRE6u6Dk Nm60D04qLRtbOXKmMFEh CJEsUBPlbRetan4nyH7w Ii8+LSLeiVW6dYM4dM2g CoGsOvC0XSkeK028 UjGioDPhOiead5zjz1eq bKk8CaBcHGUkqyZjsRjd KRR2y0FgGm92M3SaeQil g6DoAzu6mx34iMPf y3T7iEP3G0RzDHEminbd hXQzpWwyBS3lMQFkmfgu YTJnaG1oHSUcA1t0MjKc YzL7BPonF3NyxcP6 DUDmnIOsONXjjXHDlJ6c tnxgn7ijmsswKsCtYOVr XHs0LRk5JHKngTjaHwLr ELE9AiM6LCJ8qSTq gF8vnHfjtilzxO2dVmi+ SHc7l8rmpBOrER1anOG6 GY08IC14vBZcy3A5wIE3 W1WnQOVicwmoqxrt kHB0YWRrZEUxzB57Do1r mSvhJn6zMIEfOOL9IPSy wJCeH6FrjD2hJiDmPXQi FCMnZ8RzxCUtVAps T718LMliGaF4XSYhjqCl U6GiWNFpzPgkWqD3o8J5 Qu1STU10KU29OW18xUJp u4T8iTB5X1ZpVYAl mrososawnTB8FPLbQNAq jU18Cl1yyQefFz9dETSd EHY6QTOkuWVgN0EmjG5b RoBlKLCuAHMbA4Tq iWCxIIppW273NLwmOmL3 XARofyQyI9HfEEBplWhz HkV9k9O5Jd9IBi26VW78 CJ36lRPhr9X0vOW6 R6JyDPPrqmhyvxbhiVM4 NCTqWGZbaR03Rm3aiSmd Vr1dWMWpDUR0KPWglTYe K4AhjK0wWeAuZMDl CESmU9ArtCQbORocC903 LVjtGqN1LZItigNiR9Vv BYIluJdzUbO0e2L3Mw7L CAwmdfn3F6KnUkrb dHI+WY30SBGyAG09lSZk cTPqh3mitKu0HeXnFKYb ZKW2nTvbNOgcc6EoAUXo H35qoLDkj9Z3BEFc bGx (more content not included)... [facility] Coding Summaryon 10-30-2023 Coding Summary HTMLBase 64 FkbkjgbvTJo0yVj+PGhl YWQ+SO4NOFGtN50uvHTp oO0eD5YERJoSEwqhYQLT NCkQLdIkppXqJP1bnQNr ZXJu IC8+NE8uEESwBsupoFNv c0E8nGM4B51tab2bBQzi jDI5QHKdZvCkgruqr2yc zBe7OIrkVyueDvAe WDFqhJ11GJY6bT71Vy44 aOHoyDCza9xeiSz5AwDl YVQhBNT0aXsbFQmky6Vm CGTjF17gjQUsz9L2 IGNvbGxhcHNlOyBlbXB0 iL0kLYjgjzied2oxnsxh Skd8fq08vWQwm2B4yWS8 K4NmzqI7UYFulRDz QprtfROOlL4trbmqf5ri shspZiZpPWLdZRh4FBx9 BVNvzQpmRuBbRJ38KFJ3 DLReulIeL4CjOPXz xRqqUwK7c1V8Sc4UK7OU TxdyK1CJKPNLYEmwlRS+ PE11pj00P6XfLzxcDyh2 JBZnYPX8oGI1kS9x FMEkSQkvm0C6yFC0X5Gq iyXfhg7nb5suNPGlIGlj A58slWGzv8F5WUYgvZB0 QQWpbEsmXmAuqO89 Oyc+LKXpdBwjp0TfHzbp q6wtr9avdFn6FqloNDAj thCkbQbiFNC8t7DaMn9n HLVxhEN8iJN6xW7k BmQpPvF2XKdoZ440SfNh qJVfGtxyW90jT2MghPD+ BZBlEqn0CBOuvPasOF3w V8NmKAUawovabVJy yGgsXJ9aDZBshptiDOHk cP9uITSyS9f5QgOqFsN7 BVmaN6VfFJAfaxcfGz22 vF7wOiQsHnP2TMeu X0PiljC6XYQcaJAvTQhn CUT7B14rl7M9HMQnFTTl JVW7aEC8nN0vnNifkcgm bGVmdDsgdmVydGlj XOydYIahN883EZQdxOsr PkNvZGluZyBEYXRlOiAg MDYvMjYvMjAyNDwvdGQ+ GIArSCW2kHusGGIu tCRuCYqbUl3xgBharAat NU7tRUKpyjvwZSFwwR8y EVEknYXpqClnEW7xNARd kuwhx980JpJnKLI4 QAGkwDFvZ2HquW6sRsJa GSGgNZWsE2MvcFKdATny S923NCdyLmT2XLIfstNe H6YqFRSnrRbyJjC6 i9D0Iy7Gi4FwxjyuX0Ak aXYlVcOlPdrjGMu2U2Dw PjwvdHI+SB35INFmSP89 TFz0KHZ1yHcuFZfy ZIVdC9WsnY3pBxOdLMUv ZGRkOyc+PHRhYmxlIHdp ZHRoPScxMDAlJyBzdHls GS7rVk5uHVFgTBWn nBcazZAyBnDos2qcSHRx IMdlEQ8mpYodU1CxgJF2 MMVfy9k4Ms06K03gW8Tt dXA+LEDxmQZ4fCE6 hB2lRmXeNbM4YEmsZ885 TcHgnXXjPdcbx3rzm7zs vHt9HjR1YGMifaCykRpu JZJ8s9CpKp54Q43j IHdpZHRoPSIxNSUiIHZh jRcits1ldK8pGt0+PGNv xTX3yFU0wN5pQxIsZcI8 CWwzL922RhSedFQe Tiyno6oza2rcrLe1PcEh SZHdfiRefSoeLZE5i4Vv Db07P3JokNpqu6GfJph6 xl40wGEeg3S4eXE9 W3CdYALddfjjhZKjzXbq KH7wVEXkcszwBHRyiT6w UVMwP8m5WvXyJiG9NYld G8GsuzT4INEuxYTs JMCycQVReV3wxeqmq0ox viloTbEfGJUtYBw6XUi3 HHZwuLfkGdNuSYS1RcG5 XQR7nDOfrB5bwOrp cpnffR2aDos+AGR6dSZb dNMDIS8sHsloxLM+PHRk YPK5sBglCNjoZGPddD9c XZEpX7b7XbQiJkW0 ZYjuB1VqwcE4TOYfkNCb PTTigDABjN9qbpplj9cc qexxBqAkSZZpFAz6DGk2 LWFsaWduOiBsZWZ0 GsN8JXV9cCPutH8saRbv zcivkP6nEno+QmlydGgg NDA9OMn3O3WqNkv1FXTm oAmwEL8nrZAxXWrk Fv2jgAkxrHamVY8sDOCc knhql198SyLqr2egGVLf tDBvGJdgIRN5C60pi1K5 GPNqWSNnBNY6gYY6 pH1ulFuyczknyCUonMoz yjXawCkuCTrlYUkfT232 MJVseByoInVmGPu4Y4Vg Frk8WWDggGkwMJ2d rPLoRBlkHr4qzBoyoPwy VM8tDEZltiado166GbYc k7cnEZLnfAAsNGgpNWK0 G07tv4H6AMEgLJYp YVA6yDR7aJ1udJruvpfw bGVmdDsgdmVydGljYWwt YPkcL561DIQfeHizFtYy rPl9L1CiIdq2AUIk gSnkGQ0mtYGqLZykMr9z zTxkvFuuBT5zDVUcttbb e395BxOxx9rbUPAaqMEx HLzrCPP9I04gl9U4 GIXjKJDjRAK9pNE6eU1n bGlnbjogbGVmdDsgdmVy aSbkXRkkTPypE882KGAy cDsnPlBhdGllbnQg URatQXq9G6OtMerjhVL+ ZQ03JMOrAV04rSUjtQGw o5mdlFm4DhTyQOAqBJN1 mPwtGEtvy9VyKSXk O05ptJIwa6H6YKOzhVnb kXAsBtEpfOK7cB6tJHzk amjmp7noeqsjLkyhn4kh vo36mG78Y43hPTjo ZHRoPSIzMCUiIHZhbGln yy3llN2gBg2+PGNvbCB3 rXJ1qK7xHQOhRjR9XTdo F093IgVnoHCsYtuh l4uxw8umqAu1BfL8ARKm tiWdtJccKVE9j1EmKb32 T59eKFuwRSBlWKRlZBMz YGHrwXpbwt9noM6a Ii8+CBOatPM3mCT1zO0k RrYgJdP8IXrzB229RqGx iHUmSasoW36gZ2JrnDQ+ XNJaLje1RSXhvOgy ID3fxZEcOOqnZt1wDPG1 IhCiRrJoINgfG6PoTFLl ujutbzbdlJU4UYRxYCQu gF65Aq4hlCppCIFj dIAPmO4eqoukg8gfwxzh NrIwCAJvQRd3TKz9BCFi yBbwZjNaEMY5QlA6XRP2 oXDqqX5lySidesce zZ4tY0ZgMHXfdwgaPl61 rC4xXnMnYkI5BTokJij+ U6NZSvifLM8AU8iFSCpo SzwvdGQ+PHRkIHN0 vPvuIOtqUIJubK6jSKTm R6v9GhAoQbG6QGknJ0Dh VMIwolzvBn10bN7yJqMx IdY1OPbbZ9LjfnO7 ILPdsHYgHZlvETI5O39t f5Y2JLRbQCEuGCI0tQD0 jN6haJajeaxqgXUmsEsz dmVydGljYWwtYWxp K749IQBpkHzlYeZeFkY2 BiK8FpM4E1LjTey5XNIk rSnfQI4quRXfJXfbKd8a eVrnkDqpBA2aFHVh pqpyOLOvrG8fPWBinBCt wOdrYW9gZZHugjlgx147 JjRiMDD1DOFkdJFdK6Be vI3vLdHqJFQeNMHg O7NowOVkSVtmS834JKtb OwN6BDFibeGyM7RjYHJm gFxvJcI9z0O5Yv43IWKF ZWFyczwvdGQ+PHRk UUM7pMtpVNpxEIChjT4m AEXwM8l9PyFqNgY1WBaj V0PzYJFibsjfDq54cP4w FxKqDxL8YKffC3Jw etU3KYKalTBcIDvtANE5 W67rn5X7TYXgQCDbVWX8 eMM2jF1zvFqcsbfaiNJx dDsgdmVydGljYWwt FWzyL575ZDDcrSiaPe5J SEL1G5VnUsr1URDaeSch SB0xtPTuGVjcMi3aeZcj bZybTB3mEFVgaanf SAAjpC7xZCPdjDXoaBjf CN5tPYRtimghd126BtTk VPL3YBHgvFEfT1FpsG1e ChYiZJTuLQKkD3Uf oBMkVNrtR175IFqnObZ6 QDOwvcGgI3LiNKXvmIwa MpQ9l9O4Vl4JLOhmcYR+ OH25vh28D7NvBnhk Muh1CTFnOWQ3tCX5lQ8u ABIeYBnds4Q8sQV2J5Am wrKzll3hb7whPRKeGYhj B64qyVDhc3E4EGOx sJK0UHZxjYfjNsRejA94 Oyc+ZOQdsZxei6NuSzmx m8bps5zcgDx9PaEdWRAm cqUvjPrmZHA0s3Xv Gw86Q00wLIqpBIRcVVNq OUNkOWNnbCuvdb1qnE2m Ii8+TQIdlGC6cNF2bF7f KmMlOwN5BGbzQ978 AcKcjKRpUiogi2nja8mf qQl1OrLcGPPolxCqiPpl LQE6b6NePk87J4UkyUjp j0QuXwq0jm67rBIt u7W5nLY6W5JcIHSwarfs dUObxDgfOP1lCEEaimhq TDVnjH0kCILjO0z3OwJr IhI0QDokM6CldtX5 HKXnzCYmVXNwuYDFdT7q kqanh2kfaqhqMvTsDRAd RNx6PIp5PJNffTbhIqEr SHP0SqO1FZR3xENl eU2rbKmyhrljbP2xYzw+ VJl3i5uqtJMqXW5gtPY7 NA65XB69rLJye9C6gFV3 L9PtGQDfaezuaokj qXX9MUElPFLlqX18Dr1v bJpoDa3jYSDySOI5LMEh aVRyG9YeeU8mWtFdPNJm RFXoK1KdvVVaCShy S030ZPlhSqA8HGExbcWz Q5BoRJNkgTslTmL6l9T1 Pn3ISD17WP75RT55fUPd t6J6oJZ7W4YeJONr ymyvkdysmCF1ATKkVSFa lH40Dt4soYyxOm9iYVQz ZUC0FYKceGUcM6GvhT7x FqBoCXPzXPHgY0Nz rGAaWMgtX901ZQeaYqG7 XMTaopQqO1QlMQAzbCvb LbV9n6B9Ur1CNn44FU74 NC11mRRgx0X2fYD3 S0CwZRUqonbszdxjwGU4 DGTdVGRlaS66Ej4pjVsk Ty3eBHPrZGX6DSAbjJLi D3CbpL4jUzNmTUSy MOGrU0WxoCWgDPqoR085 ANbsVjA4KFUvatGfE5Hk KBHlxFatHgK6k9N2Kv7Z YIeksvg6E8ThZcnn dHI+CT04YAFpNW62uAXm sQMxu1zpkMf8FbAdCEAp EPZ6bHaaIJrgd1OkLUAq X84pqDEdf9C2HOCh bGx (more content not included)... [facility] Coding Summary HTMLBase 64 FgxncgeySNs9xGg+PGhl YWQ+WI9APKFlW46ffFQs tA4gJ5INBZzFAzvlSOWE UYhXJrEvurWcLM6xzDXd ZXJu IC8+ZA5sSVDfRvrqmRLw f1G9rPJ8S78kgv6vXCjw cSW7SIYyKiIbcxiez1yk uVq2ZZliQfspBfJo TICkzU67GYA7uS67Wt73 oAYvuNLrj4grfEz0KxSd DTNmVJF0lIvnVPbpy8Qp DFZuA86wiZPws6C2 IGNvbGxhcHNlOyBlbXB0 eU8lUEtwggair3mddenr Jid0xr40oYKel8G8zPM5 X9TmiaU3RCIcsDMb OdlkqPMLhF0zxxsxm8in fyuwGtKrZDLgRMe1HIg9 XKYmoWlwZpUbEW62UJR7 VTTqcbIrG7WxMELm tSseHkZ0q9X2Zy9RO8SF SablB1RXTCXSIMfuvPT+ QD37lk54B8EnYioyWwh0 IBBzORD6oWQ8gI1c LEOlMEsmh8E0qDN5N9Fs phUhdv4jj6ypSKTeZRok I91mnKNlo4R0MDMpwTH3 ZCObkDwfAdAntS08 Oyc+YXGkoOfyl5GfReyv q0cyr6qofUd5QavzQQYf snNsoUszKWN2x7XyFi2h HVJiwYT0uBJ6wA1h SgEkLyP9XQfjF638PyAc gPBhDcelP32zP6KhaJX+ MDLlMdm6NEQuoRfhUE7i L0RpNFEnufnqoOMe pBceLZ0pIKDnffubALYu vY0pYKGtG8w7UrWbMvN4 VCzuN8JkZAUaeeblOd45 zP8cMyLiGnR1ZQjb W5PtmzR4UFVleMZlFVfk WAC9G64hg2Z9ZFPlNZFb ZXW9rIE5nO6jvNjfnoju bGVmdDsgdmVydGlj NKisWBvvZ673VCMzfZum PkNvZGluZyBEYXRlOiAg MDYvMjYvMjAyNDwvdGQ+ BZHwXMO6eNkaNXMr jVVcRKhgUn3jeUwmzJvw XM2fFWOncsdoNJMdaH1e CHEreYBjeJtiHS3cPSKm ombpg078NnRrSAF5 ESIbgNAvF1KjqU7eUtEl JTUcPGGgB4MfpIDeSSjo D813HMezQsQ6TMOggnGm W4JwYTBakBxkNzM1 p7A8Yx3Yk3DgrzjoU3Cp rDErXnUcThaeUGm6B7Yw PjwvdHI+BW52CMWvOO19 DWe7QFB1oShyBDxi AEAvB6AplN8cBmJoZQQz ZGRkOyc+PHRhYmxlIHdp ZHRoPScxMDAlJyBzdHls KF0cMp9rJTNzIINi fCcooFUkGwTkf9ucDGEm RVsaUO7rfNhwY4FxjKX2 CECca6y2Mg78E79eP7Ld dXA+BOHwjDI4sLT9 oF7eTgVuQwW1STadH363 HyOulMSjXjflu5qug5od nMq5LuP7WKTozvDgkKas MUI8d5FoHw07X62b IHdpZHRoPSIxNSUiIHZh mMjuaz6dlO2eZo7+PGNv oIO0jEB2iN3mVyTcZgM1 NYstY976UyKkzDFu Wqchy1wea8xrnCn3WlKk FYZcltEfuBevDGP5i3Vh Yz65B4KsaMgeq0VyWmg5 qn28gGRcd5J2jKT6 O7GqZGWfpmeukNMjjSip MQ9eCHRhdklcMBLvlC0z TMYxL8p1QnGjBeI3WZdo M8DfwdN3YAMxyXBj TTAsnMIUcC9eiswuz9xs clipXtHwSMJgCYg5YYh8 CCJdgPmwHmOfQWF0BzI1 OLY7tATonM7roTov yoxmlQ0vVdt+QMZ2eFDv eHVLXH9cMdrwuKL+PHRk FWZ3zEfcXRzdDBWsxW1m TTLaV8d8EfWnIgO4 LCdxF4KojcV5LEJbnFOz CJMlqJJPvC4chsdza2jy pojfHmQxNRLtSTt8UUd7 LWFsaWduOiBsZWZ0 HzC5EMN8dUDhpC3khLit lnwmvT7rOse+QmlydGgg PDV1YUb8P1InCmr0TZZy wHoxMM4cnNYvIImx Eq9okQmbvSgoMC4eSPGk skzlc383FsSmh7hkNMMe pTTaUDhhPGP3T58nw1N2 FGRpSZJvOVU4xAG9 dM0rbElvbvwoxBMlrXse jcWeiYzsEKfbDUjyB695 WEQciFjwSzOtKLb7P3Si Fez3HFHqdJkmKF9n jKDuQWwbTo2vpBqqwEhw CT8eHPJrhfoip115JrTk s9lbYRUkmADlSEvqGJQ6 A97mv5B0CGJbBZUd HCD5kSO6iY6dbZvahips bGVmdDsgdmVydGljYWwt HUiyH729OIFfqAcaRmKd qKm9V0EfJzv5LCCd zEfmYT3xoWNqJIyuOo7h aChssKrwMS5bCCEzanwi q619TjLft5pdHVDbsVOi MNifGTN6Y24rb1W2 EBDmZHLbXNJ8kDN4rC7c bGlnbjogbGVmdDsgdmVy jTubOPvqCCofT581XHNi cDsnPlBhdGllbnQg FCwvGCx6U5RuNypcuLC+ FI57SOOrXQ76qFHrnWSy q6bntHa5AjIyLEBxEEZ1 ySgyGBxor3KhZJIy V34ncHYrl9H8RDObkYgp sRHhXwZccFF6oX4xUHek fbwhq6vpnuywIkawh0kj vs87oS58B65tVDtx ZHRoPSIzMCUiIHZhbGln qs8tiY8dYt7+PGNvbCB3 rKI1wS5tVTPvRuS0PDyc D603NnFsiKYdUuia h6mcq5ptvJh1BmE1OQFf ujHekJavGUV6c0QrXm69 V37yLKqsZQOsSKInGJFk AUIrtLprft3meX2w Ii8+THPkpYE3gXQ9eI1z BxQyStA3OLkpG089UpXw dEFyAopwW34tP1MrjHK+ ODHwCkv1YTJjsLqk QF0ktRNaWDivRe6vNCS3 QpOeDtZeVDajM0LsLFIp psqaojlgqSJ8DLIiVNDk oR05Qa0ffLlxCZQj fIIJfF6gliwnx9ipjkmb GdGbHMNaVCz1ICe3CDMj xOzkFqOnPRA1NcE4PZT6 hEQbyH6seTywvgkf dA6jG4UuUEYmarooHi63 rJ0vZjWqIpU0ZCchCvu+ Z4ZBKrhoOG2PE0bIZNkp SzwvdGQ+PHRkIHN0 zQkxDHfvLXMefD1cRKSt X7s2GpUyEqF8SRauC7Mw LEVgebytXl35wL2jAqCp JhB0RBswY7KitwB8 CYIolWMjMCcjWKD5T13o n2F0CRKrLHIeGXY2tNO8 mW5rtZbhhbgwfJVunKky dmVydGljYWwtYWxp G226QBNzaQwlUqFpHhL9 PhJ8ClN9Q7AyEsx5FRVq zXjiDY7brLOeRZjxCd7v bWkmyOwuGT2sLNEp pemdBYFviI4iDUTciNOe kJxwNU7fDXPewetvi116 JdFlSHN2YUWbrNWzK3Gp qB4vCyDxLKXqYHJg Z8PofXKbCZvlN940IAam IpI3KQZyaqDeB2IjQLVr iZbmDmX5z3Q4On47QKWP ZWFyczwvdGQ+PHRk VJM3dJyoDUvgUHHgnB3p KBHzN1p5SaUgUmX7YWff I5ZhDSLhizgkBu68eU4r GkOdLaT9IEydX5Vt ojN7VWOjxBGlALmqSDJ8 F94pp3U0OAHcHFVbYVY1 lTJ9yO8xuKfgmfvstYMm dDsgdmVydGljYWwt GTvpU496EZNxmHpfNu2F UKW5P9IpAaz2BKYhoOhx MA9ugFOhYNlmNn9exFgc kUulAK1mRAGuukly NSVcqF1gRRMthQOnyMen TC3eLALjtukzc849XjRk VPH0SXMvdVNqH3NkvM4l LtBjMSYwMYBbD8Bt iFEnQUblO468LDrmRaU7 OKYrjcNxQ4RwAUQizQhb XtJ2j3N1Ze4ENDzxqHH+ KF45mk03Z2RdUsmc Fzv1SFSrSMK3uLB3tT6l WRVsGMnjt4X7dYY6W7Bu mpZtas2td5llXJHqQWqh B19jyNOyh6O5ZZCo eBN7SIMyfBpxGuTxuS70 Oyc+ZCSoqMdbk9QpExno n1sou4cmpJw7TjHmDYGf buEqkWneVWM5p7Oe Xg58P32cESgaMWWaVCKx VNGqLWTngXdyge4rmL9n Ii8+VAWulVB6uNO3vK9f JiJcQcH2WSknK271 FcNfgRPbMyaaq2ajn5mi uOi5IjKtIBFztxJmyPqg JVU4a7PzBd86A3JsdLne g6UkKmw6xr13pIJe g4N2vVN6X6OeJVWecruw xCCsrJbsOL1hRITcixra PPJbdG3qMZLoX7n7KnLx WcB3QSzaY4GahrE4 FAImzUYuJJZsxQRCpN6b qykel9ndbkkeFiKqHVOy PKy3WIs5REZxjOxpXaTw OMV7AcN6LUN8jGGl vB8lfMcmpcnrpA7dWkv+ FDd4s9fsxEDiOY7pxUY0 FY56EV97hCQgt0L6yWQ6 C3ZpZWXysqrgktov tUT8GUCsYEOfdF38Kq7o cDlxNw4pTAFcVEJ7XGRk pBNaG9SqgK8eKwBoAWDv OOHeU7RyrBNfSQcy C731JRxvWgS3PDLwoxSb X4XuKCFtuWkyCrD5m5Y8 Ua2NYR20KV35RA29jKHz j1P6rEQ7S0ZaEELu hcvabccwrUC1EUXtJOIf aI48Oo8kbAkfDr3bPRWh IAU3KFCobSBaW3LsgT8f YtQiGALcCTOjT7Dx yORrYAmzQ068XFxqYxS6 RYXzacMpG3XmBEJfhCjk AiU7e8L6Kc8FHc52CK32 EA45vGKtl7M3kTA8 H3YgYWTrvwgljbdjgRP9 HKKnGGNdkL76Cb8xnCpj My0sYEYcATC7HRFmhWJv Q6YbwN7zSnTvCKSv GYJoN7BrfLDaTLmvF362 RWfsThT8FWOxluHnK3Zf MBZfpPwfPiC4m4V1Gj8J OZsuigg9M3WeRije dHI+VT49ABVhYN63wNMq wWLdg8ipaSn4IkJkBDBt RPT4aDadZHuqe5UvPAEq I97brWCzk9B3VTZe bGx (more content not included)... [facility] Wound Care Noteon 10-28-2023 Wound Care Note [phone] [id number] [facility] Note [phone] [id number] #1.00[facility] Coding Summaryon 10-16-2023 Coding Summary HTMLBase 64 FyoafkkpMPn4zYk+PGhl YWQ+XE2ELYBxV40viWXp uP4nZ6ELEKmVSmloSSCV USiUBtMyqfNpMY1dyNXw ZXJu IC8+DJ7tAXOzQywzaJYz j7C4aNA8F13ywy5cZVtp bHO8BBLnQnXeyqhbd4fe fTe7TVaeVpvvDwFs RAQkxH76IUG5hS26At93 gWFymYKrt1drbEg9DlPg DHLrPDI4eVvxMDscz7Hu RSGjY83qoFDcc4L7 IGNvbGxhcHNlOyBlbXB0 eO5zPZcylvqtt2kutere Pva7nm38lJHym2A3jWQ1 I2TgvpD9ULDssJLl GtyhgWKZoO0jbtuim3wi dnofAkSiOMIxKFc2QZv7 JBDdvOuyCeYaHL03OQK7 ZXBjppXtQ5NwLCSy gDxjYqP8u1T5Ir9UY0TA FudyU4TVBJXHIOojoKK+ BF18hl48V5LaSylcRxs6 LQUdBOO8fMD5hD4a JBMiNKobn7Q1eTA5X6Gf ziHydr7bs7rhFHOjCDsa X21eaGByi2V7ZZCrcCK2 RLEesRdwMjPkbJ37 Oyc+ZGBayZjft7TcLimb n8zuq2iuqOh2CixwYGSt biTjyVrfAJW7w7MdMp5x MIUoeSX5oNO2xM3e AaRlLyP5ZRuyG383TbWh cXPmEebnY45dF0OzhXQ+ KRVcVal1IBMayGviHX0d X4TyIFVndtneyPGm mIkhTV6yWMForfwwZREq iV6yRUYfA9n6QaGeWnT3 AFueQ7IaBYVjjqoyXr86 eP9tSmSpOxT4RYzc S4OzjmU6SWOseCRsZNtj ZAV3O68sg9Q6RVPrKWXv QPW1aTD1vP9qjCunoebn bGVmdDsgdmVydGlj IXuwVIigF957KYNcnWoy PkNvZGluZyBEYXRlOiAg MDYvMTIvMjAyNDwvdGQ+ UGDaHLM4kBycGHPm mTZsZWexCx0jqEvbmHrr UV3rOZLwbzzvVEQzaK5d SGPtiZRvwVhcIP8dCHAu wvzaz519FpMuXAO1 IBWssVUfN8FvgD2nAbFb KAXsUSTvZ9HjdJCvALwd F224VSxvOdZ4IYYloqOu N8TsZSLxaTvcAaO1 r1O2Cr0Wd2DwkkcuW3Hr mQCkGtCmUhwtTVl1Z7Xp PjwvdHI+OB37WBNxUR54 WMf3VJA9dJrtLUml SPWtZ1ZlkR0zWsJcTOVo ZGRkOyc+PHRhYmxlIHdp ZHRoPScxMDAlJyBzdHls OU5yXa2rLQNlVPFq zWwzeQYcPzMzz3qqIBLh ISrrFK8bjCwqC0WgnCB1 ABHrq7h5Sj45T73qT5Ha dXA+XSZotRF5eFY9 hC1bIhViBsB9WNgzQ427 GlCjpTTdHxykd5dad5yf hZl2KhB6IQPmgeCniJsm REL5a2FdNu09P15u IHdpZHRoPSIxNSUiIHZh mMxvsp3zgW5eRd5+PGNv yTW6rDF1rM6oKrYtWbI4 DKusZ679MlJshVIj Oronl4jxv7bplYm0NoPw HUPpwuPnnIjsHNB2b8Bx Uc23F9TmuLxrd6InQsm6 py21wCAij9M1dIY8 M2FrPHQebxfirUAsyBln TC9zEADqdijbUVIizV9r IKVwR6m9BjZqYnE0YRuw P0YhgdR8HMYwrOUk LLNajAJOpG0gflolt3ya gfcdEeHfYONaWHz9MAt0 MCSucMuwNeLiGUG3CzT2 NKF7dWEhzF4epKkc tdbheX3iTpk+DCK4tAUs qUOYSZ0gLwfjpQP+PHRk RAA2kZmgQAdbIGLhjF2x TQNkM2q3GoMlCsA9 TVyhM1ItirY6QRCmqLSc NHTbfSUPaF9ndpfac7gv yobbBdBwDPZzNBr1BAy5 LWFsaWduOiBsZWZ0 YdL5GUU5iYDaeF1lhAal rujppS6qJcw+QmlydGgg IPG8EFs9V3AsTcp6GMPl zNulYL5qtJKeXIks Qb7rjXdwvAujSB3oDZTe dexau017CnYax1gzPEWp yVPoEMsrRBR0K83ar9L7 HBQiEGOpRKS8oFC1 rC3uqFgiyvsllHWkcMbv zhTofJvfJIriUIjqS598 VYGjpHdhVvPeFGx4O9Fz Ibq0DJWehYszLB3v vKInFCdoJm4vdFxeuVjt IR6zYZHxwfjnf227ZvPs p2uqIUUrtKOfWFtjTAQ3 X15lx4H8EIRmUESi ZZA8vND5jG4diKleklbk bGVmdDsgdmVydGljYWwt KYedB770RYUkuFmkKsOo hUz1H3FhIfu1SMLf zQxiOI0apEDcYIziJl6y jIjxbNciYI0mUGBfrjfg p900DeYvp8euWKDmuCRj ZYitISF8S12dz4Z9 MRYtUEZcZRA2fMM2cQ9b bGlnbjogbGVmdDsgdmVy dXfrQOgqEPsiF866WPDv cDsnPlBhdGllbnQg BDzgCXd6R4PcDkuptGT+ QV80BVStPW90zWTucAMj a4edfQa2FrWmXYWxUFH9 oJimQLghe1BoYWJs Q98rkVKul1P5RNTnfLol bGLpPiQcpQW0lW0xFQsr cweud0epdziuRcahz6gb ii47fN54W29wVPye ZHRoPSIzMCUiIHZhbGln kj9itM1tFt9+PGNvbCB3 eHL6dY6hYFEiQbQ7UMpg I457OkUyxCUlSqpj o2cwk0obqIc7KsC9OYFc yrLnbCevOMT5b9GtXf87 D12fVTdrDORpBQJqHGHy OKXnjKirmw5vmV1o Ii8+EMEziFB7bIC8gX5i WyXtVmT4UQywD764AnGn tNYyZtkqX95rW3WaxDN+ OAXoSvt7HVEecUbo OA9sfCPhKCeqBg1fDMP1 UaDvRmBoJAvwK8WmEFAu vkfxrapstOB8XQHfPQPi aX51Yj1vkHyvMWJf kKANeU3tupoyg1ukidwi EeDdSXMrWKc8IZx3KSBl nAppQrKhTIQ4ZhD2WZA7 vWMyrA7pnWaxigzh vY1nX8ZwQOTzqnzjIr96 zR8xIsWhBpY7PYbsAjp+ L9OJGmcdCS2ME0gJAIat SzwvdGQ+PHRkIHN0 cTykRKzhQLUjbZ5jSGJh Y9y4AyDvZoC3RVjyX6Xi YPVrasroQe34mM1uWqRr LbW0WCxwE9XuadU6 GZFuiWNgTTdhZJS2N39t w7L7HKSzKZIbYTZ1xCM4 uW1ciNbwhdxuoJJbqFhe dmVydGljYWwtYWxp Q750AXGefFomDoLaOpT4 PkW7IsF6G8XrIct0BMYv hMegKL4avNKdGNacLa3o zJgwoPhfSF4mIQZj gqfxVATfpW9sFEBtmFKy yRisEU5yZVZfgccvm791 TiDpOTZ5UAOihWQgY9Al nB0uTiLvLGZsPXSo T2JycYLoUNtnM909SLoy TdI2BNAgwbAtN9CxCKZg uSppZoU4h2O6Kh23ROCQ ZWFyczwvdGQ+PHRk GKY1dHdpXRiwIDRnvF6l LQJnT3z8CxGvVoF9LVkw J1JtGIWhupbrGn29eQ4g XgVzFuH5XNxgO4Lv xpI8RSJsxDPsHJxxHKN8 H58gl9C3TYIwSDHgXTT6 tWE8eA0gwZqcvncfuXFb dDsgdmVydGljYWwt HAauP272KXYlqJhhJq0E SDA2R3NnIgy7YLDshEmc PL6wqVFsWKkqDn5zkZyx iZnfTR2bCDOffeiu XSOpzD1qSCUxcPRmcLbq ZF5xOCTcthavc618HlJr MDW5ZGZekLEhC9RgrT4v LnNxRPBkOARyL3Pd gAOfQOsvD949XGrrGrC9 XDQxukHfZ8MbIDEfuEmc PnA7v7E5Qy1VTQtsbHY+ EU54wo90R5QlQlcs Tay8PRAyRHJ4lDI5iQ0i DRDmNAazj4M8nPQ1J4Vn svAydb9tj0bnTZWaSNcq U35fhCAgp4K6DVDm wQY8IOOukUwaMvVgfX23 Oyc+QRHlrHtrz2ZhQmcf a6xig8zrsTi8AqZzMURw ybTrjGwrSJJ3h1Bw Gi11C38sRGwhCHYySUGv IFIyFUYwfJddox6fzW9u Ii8+VQPybNE6xGE6wS1p HwMmTeK0FFnbB133 RaRhsPQhHgwig6zti4kj rHv9JoSpRRCwaaKusMes MLD6a0QvMj36D4ZqaQwu g1DqOrd7cz69zRVv e0F0bCE8A3WrIACthgop oERykDplPW9mYRWnssub OIBseD9oTLZoA3d2CdFc SrX9VLnvN8RawaL2 IVOdbUAgTYXbcNGRlN5n mffpk9tyrxvyMxTuJDYq YNm5SIi2FYBrgLfpWbFz LNA2TfF5VYS4yZWk iV4ohJttotgubS1hKbu+ AIu8b8wamRAcHS0vaSZ6 DE60PS90hQExy2A7iMA5 J1LqGIZiaelmavxs qJH7JRTvTBPxfF96Gr6e oPmiWt3uUJHjPRV7KDUj yKKdL0TvoU9rYhZlGUBt ESLbO6NwuVBfCKan R750KGkgLqY4WQOhooTz G9NgPGUdpYsiCgW1s2H4 Ky8GZN18GZ07TC09iUKd r2F5iHA2A2AnGNFt pjehhvldkSZ9YQYmUDXe lT67Ih1tsCjaTi5fQSCb EWU0PNPxxYQoP1QbpK6l GlIpRYMiAEImR4Ib eXNqOYplF694AZrjWwW3 QUXxwvEeY0ZlOKClcJks MtG2i9A6Yr4LSx05SF69 WS15nXTtu4L2gNO6 D1LjODTkvmwqtzbkiCR8 FSUhMZSwrM69Dz2naOqw Ob1hCVIuRIU3HLHbaXKu E9BvwF1pWqCmDGEm MYDaA9WbjPQiNMhyH858 TTxfRoD9CJKqbhGnB7Zc BJKkfFyaLaN4q2K8Ax4U UTfdxuj8D5PaXngq dHI+WN43ZBDuWK96hSHn dYWcq1gttHw7ArXcUFPn DCQ3qJjdMUgux3XkAKDr G81jkMIex4O1RMBx bGx (more content not included)... [facility] Coding Summary HTMLBase 64 JpkmjlriQAo5cGa+PGhl YWQ+BU3IGOCqD16lmKGt dJ8tT0KLNBuITevdHYPM DBqSUfSfhwMqVD3ulWEy ZXJu IC8+TG7hWMZwJjurzWTh r9Q1hVI9E17pul9fRLku sKH2DTGxLmAosvixc0gq gTe2GIekNafwOmJq QZVreS79GOU6hR70Cq28 fRFagHEtj6iqbGq7XaJd IAKlFGE1bPzjFCmdo1Ri MOLtP64jiTSud3E2 IGNvbGxhcHNlOyBlbXB0 qL2yNLsbjtegr7idnpth Mmg3sd45fJXkh6E8tWT8 N4IeekJ5FVBjlUNf KaachIISmU3obquby2ch uakiKmWzLWJdUIj5ILm8 XDTjdCxgNnMlMG13MHY9 XCVowxTfL3ZaZVZx rEthPqU0y4I9Xs1XI5FV YyftO8DBGMOFOQytsYG+ LM15qv51H6UqMouiPja0 ODViACX5yZF6oB5c QQUvXHpxp7M7rGD9Q2Di hnWsah1rg5rnUUDuXMju P49jsTBcw2Z3LATuiRV8 EERukAepHzObhF78 Oyc+NPIypNawo3LjHezh y8bsq4xekAz1IvyoSOXk rdDrwFkrCPH4x7MjEe5t GYQfeDP7yMS5oS9l WtTfIbS8IAyqF226FjDs pQJoJnocM46xW9KerYI+ EWDlGdq4VVUbpTjlWK0s H6JmZVVgoghgrZAl wMvcQD6tMSNlqvoqKVSd cG4jQKAoE1a0PhUjPhX9 BGmaB8ByGYOazayfJf60 sV3iUvWgKzD4FSrf M1MymrJ8ENQdkEQgTVhp NAD6Q76uq7X7GBNrVLLv OQN8xGJ1fF7ggWwgqajz bGVmdDsgdmVydGlj DAibGAcvA723KUPvwEcj PkNvZGluZyBEYXRlOiAg MDYvMTIvMjAyNDwvdGQ+ TFCqDWB0rDldDGHo eZCzIOhwWs5lzVndbXbi QR2vNZRqlikvSGGzoK8p YLNkuOSrjRhcRW0bDEPq fghhv180TvGqZCN5 ALYanMYvR1AooU0hGzZz OQIuARDfY1NzlPYgXHou P560EDoeFjG5HVFdmpIl L4LhYGRrkCmeGtH7 g6L3Ch6Tq4GzlzelQ1Yb iQLmAaOeThmuCWz6O8Wz PjwvdHI+HH15RRGfBA15 SPi6XTE1zUneNNyb CLRgP2IbyP5bOtGmWRWc ZGRkOyc+PHRhYmxlIHdp ZHRoPScxMDAlJyBzdHls GZ0fCb5yWHIbNTNp pXmmzQYpPbNoa2zoWACj WRgkLI8vtIqqU2BmbHY7 CNUdj6d0Sn86C78lT5Ew dXA+DVIreSA9nOO8 yK6zYoXnWaI7PNfkR836 UdMghNQrIniwj7tmv0bt wLd1AjB7UBDtfvJdhYbn GBM1o9AsMd57F77p IHdpZHRoPSIxNSUiIHZh iQjdlr8yqY4qVb2+PGNv xSB2gDS4xM1gPeBhYfR1 WXbdQ346ZfQpyKLl Uwqvh9ysp9gohTy0NcNa KJVxsdUhqXxeYAT6u5Ae Yw14G1TmgHpku4BnPom7 hc21oCYkf3E4hIE6 L3PuQTKnltmtuDFdjDmq JO6hVOBtlbdrCVUjuB6r BQUtB0i6NjLoYxK7MIyf P8ShicY1DUPcjPCd XYArvEUEsJ4ywjxpn5sy pnwsAnWsKCVvEQl2MTo9 MEQkiFopAzBbOIZ4EsU0 KUB5sKWgxE3nqUnl dayxrA8tRdl+RDC3iFHp nWXYME9tCyxquKM+PHRk TEG5cXrrDQylLMIinG1z AUIrO6v8CaHjVnH5 BDktI0NmisU8USMcrGBu RZBujMUPhE9ebsqxc7we rqirDpJuRAYhWZe1ZXc8 LWFsaWduOiBsZWZ0 CyS4NAP3mQEtdH4okGzy ubsphU6iXoo+QmlydGgg EZW4ZWc9L7FsCam9GEVd tTgkSI0ffZHjGLil Vq5rpAbvfFdbDR4mJLYr ckgsi842ChWxp9gyRCMe qXIfZSkeVBW3R18kj8W4 XYGvZVZcOFS9oZI9 rR6szXuieoddcJOzwIjy coKtfKunEGptAEcqK454 UFShtXmgEfVqEAo9L3Ry Xjb6MXZdqFvqKX2k uNYzSNgdIa4ssIpkqRjc FC2nOPTxaqaus737NjSg c8ngQRYciIUwLXqdUBJ1 N19sw3B8YDZkGKIv OKF8hGQ7bI9cyHfdfhok bGVmdDsgdmVydGljYWwt ZSjaR281UMQqzVbwVkHi fVi9Q7JsLme2TODf jDpsMT5uqCJxDFxoYo7b xCoeaJqeSE0sLQWcdmoi c293AdRoc2ktWXQnwWOk COknZKW0K39as8W9 PXXdAXLwESW3aFM9mF9l bGlnbjogbGVmdDsgdmVy fUubQTqfHZsxF802RZEw cDsnPlBhdGllbnQg XBaiMHc2K8IiWwjrjLH+ IF74SGLoGI39dXQccUFt e5sqqOk0NnPxHFVuQJV7 ePxoCLsdo3NsVVZt W41uqAMny2D9DWEbqEnw fZYoBpQryEK0xC5gQHci deihu7rnpcqnTadhp5ce qm31sM61L83rUEtu ZHRoPSIzMCUiIHZhbGln qa6tjM8eNd8+PGNvbCB3 xOS4dH5rNVZjLuK9JCor K624GdRvfSIfNoym w7zls5jgnSk3OpK9DOYp spMgpYmwLFX6x1WnLw24 K43vIEibPIToALYrSOTu CDWxjTtdbt6orB3k Ii8+SGXgcYL4nCJ8iW6g DgTlHgM7EDjrC782QkCf cKGfFsavK68iA8YrtCK+ VIDhDjg0WLKruZrs GL0ljXMoMPukWr0kCXR5 AaXoTdMgAAiyS6GxEVTb ijrleshukMN2LVEwSMJk iY90Bn7jcLkiFRHl qOSGxB3wioshs7awicio FkLzZAAmLXf7XRt2VOGc zHzdDeGfLDO0WtC0JRT1 tEHxeK2teIiprpso sO1uD2ZvWRNppqjkXf03 uV2vYkZzCpA3DPbrWji+ O9STDiydYP5CZ9qLPHvl SzwvdGQ+PHRkIHN0 fTwoHVikSPEfkV7kJEYa A4e8LuHrMgH2OXnuD3Se UXZmqnlfWm22lO7wWeTa KpR5LXcgK3XyhoQ3 BRYmyKTvLSiyLGQ8V81f r5D7MLXuDDRnAEP6jFR4 vB0ruPopdythgFVmzThs dmVydGljYWwtYWxp F598IRAeaKwtIkYdFpH2 ZvB8QmB8T7WoYpe0VMPs pMvyOC3jeUNbFPaxLy4u nUlhpDtwOG7oUEFg hqxwENJfmD0hFDUoaPIf tWobNA5mDHCybqdep899 LvKpADZ4YQOqjIZyJ9Gc yW2bMdWyESAwWCHk G2NwdDFrJQvgA656GPmx AiT2BGYsryNdU7YiUVWk tAizQzC6d3Z5Pu23GVTP ZWFyczwvdGQ+PHRk UKV7fDpbKBwiAZWrmI6j DRSoK1y0IlFiFzK9FLau B2RfOHIkcsooQx14sR4b PkJpDuX9SFseY2Gn emT6INNmzVTjVPnuLEP1 P76vb5M0WOSkQSYfAJI9 yQC4tB4dkNpnsbnxcXLn dDsgdmVydGljYWwt WMxgE779JRMjaJxoWh4R ISU3S3QsNoc6MSPvtTlo ZM4gwLIhJHkvUf4xyQrl mZmmIC7vEQIsyhgy UGWmdV3jERHdzMUekYbt CA8gBUYwbfbuu647GuCu MTC5OUTeoAQxZ9RffR3r OoXsWLGlFIYmU1Eq eJHxRLczD260UVamSvB0 MYGgqfJnE6AlIZPrqCbx KwF2p4J5Jt8BAOghpON+ AB10ym77A2UiReep Bji6QJDlPVI5oGB8oE1r DZIuKXfns4C8sYD5A0Ys qnWkev2nv5yrYQTaFPzd G03kwTUnl2W2TKAs uWX9PVHajNzxBjKaaV98 Oyc+BFWutBmoz5VmOzlm v9ygg3wjkBl8NzKlIQRf epXhlGovNDK2j1Ty Bm74Z38yALcwJQTlFHDa ETJnDCPzoDmuhk3elH0y Ii8+MOPhdDQ5uAE6qA7d SqEtUcH3XTunL003 DwHkrOJxVsajn0mns5gc sVu4NlVzULCchwQqzEed JDW5z2DoDj88W4VpyMyo b8LtMxw2xg14zAMf i4S6cHN4V0IvVNUrfqsp nOIfxKxhGF9bJYHdbsgp YNYkbM5pDMQjK7i6LvIw VqO0WKrbC6HebfJ3 TCPeqZHxKOCfaEDEgO2b jygob1zteulePkNpFXVl VMn4QKn4VONrePrvAbBx JQW2WbS8SMT6oBKm hL4rgTctwheezS2mZho+ XWc9j0lxjYMbCT8mqWC3 DF28MH84qYDex0F3zUE3 W5IqMICqmbugrzpd iZU6OPUrSWWghJ47Nj7t eArpFs9mNJTfEDR1KUGb jTDuS4NxzE8fEbQlCEHf NXKrI2WzxNDkSPjc J910WCzjYvK4LADkkuRt O1DiECCxwWwoPwZ0n1H9 Nq9POG11XI36CO33pHHx s1W4jLJ7F5UxLJRo gtkkasnxlJT3AGTwPLYr jS69Ox2lbLxzYt5kSDYp JYI2BCLdyGJiV0BimQ2p GwStWYUnETNwF4Rf sEGgFIqoN404KYsaWwG6 NSPpheKbO2XvKBKekRyh KdP9f2X3Fk5XFm88BP63 ST46jNYtr1D9hOO0 N4ZiSLPuuvsihlqmdLF9 YRAdGIMenK42Ff4ejEcw It3nRQClZOC0YSKifUSj Z2HwdF6eGqYqWCFu XTTpW2NflNWnYUcbF635 VVweNiT3LJFqcqCtK3Tf PRWilMjwYzY0y7L0Wd5Z JSfhaah7Q6IlOefn dHI+YA31BEEcXJ67yQKw yXSew8lofEx4YiVgXVUj TIF3rMwnJWyzz3CtJCCu R79isWIct9N5WNEy bGx (more content not included)... [facility] Wound Care Noteon 10-14-2023 Wound Care Note [id number] #[email or web address] [facility] Coding Summaryon 10-09-2023 Coding Summary HTMLBase 64 NtqfzqzjHLk0xBy+PGhl YWQ+XJ4IRGMlN31gmLXx lP1eO2GFZDcYCblwETUU YKuEIhCumqZaRA9vjBZr ZXJu IC8+JU6pQWGeQvtmlOZc c3J7lHA1U65jtj0kOXif qSQ5FATgStAnvfphz8ku aXk6PYkhSjddUcEy WEOofL72HON1yB76Lk38 rQKevYAmp3ufpZb3YbLr LZJmQTS1bWyxTLent4Al BZTxM45wvIRcw0W2 IGNvbGxhcHNlOyBlbXB0 xR3qJZgkyujhg9wezmmw Ism5ml33hFVau5B7aIA8 X5OficJ0MOXbtHTv NlgilMNPnF1udddnd4kw lqcvGiKdMOMvXWx9OQa9 QITqcQxqBkIqSI88RPF8 HFTzjcOlJ1XsRAAm fPouScR3w7B1Ud2LQ6AW BswtE6GAASFJWHrpkVC+ OP80dr65V2GxHnzpKrc2 DVSkGBJ3gHU4yA4b MKKlWEngu8V1oWW8H1Db diTedy4we2xxFHKfXXvq U92spAQza9G9OYCmwUL7 QVEhrDheDyKdbE71 Oyc+RWKpeXyri0CgBiyy w9iuw7cjaZb9RdgtIMEb wuNcwDrbUSA1e2AtIh9c XATrpBL3sVV8fG8c JxUbGsP1IOxlG548ZbBn gOGzMbcaR62pP0HyzDF+ JSGzAov1ELGrjLvnMM5p F7KbPYYxtqtkpVQx iMdiFR7fDLKfpseoVBCr gL5dLMBkP9m5RiLqUmB0 ZVnuK3VnROXjipzfQc46 gP1hZiSkPeI3HFkw F3SevnK6HPYjzDUvSCqq EWM5W89zb5Y6ZQSzDCRy IAR7tAW3hR8rvRjzoelk bGVmdDsgdmVydGlj RGylXNgsB541FMHmcShk PkNvZGluZyBEYXRlOiAg MDYvMDUvMjAyNDwvdGQ+ CAOkIYT1fBoiRHOr xNNeCZioIb0hqXktyTrr JQ4vTURoboyvEUNgyH9z SNPkqRLwjRzaHM0tRUSz wyver755DkFnELZ7 ANOqeBZpE1ColU3uWxRd SAMpJOGzW7BnjTNcBVbx S861JWrwTsG5KIKmvdRk Q6FuHCLmfBzhInM3 u4E9Dj9Hm6NdtdvoT5Cn mSFeXbXxVvvrBEy8K8Dm PjwvdHI+BV64WMQjTC47 FRc6DUQ6nUgwQCfo AOUoQ9UggS9kSbKrCBYk ZGRkOyc+PHRhYmxlIHdp ZHRoPScxMDAlJyBzdHls QJ5oNo5bMCNpHEMz dScprRQdPcXco9jyQUIj EJrsTN4oqPjrU1FkzCP6 KEGtg8y4Cz17D20nD7Vo dXA+IOXsfTT5qEO0 gF0bTsKmCpF5HDikX106 NuYghJQpDffjk5lus7nd vVq0WyD6POIlxsOgvOki MWI3x4KhXm14U87d IHdpZHRoPSIxNSUiIHZh rCligf2yvY5rHr2+PGNv wNL9iIX7oD5fJpBhEvL5 SVgzR033RxEaiCHw Nrmmo5iip4hxyNm5ZsYu MCAibsTffTomUDI0u3Ku Ad18G1PviNoqt2FyZfi7 aj93wZUys3C8oNS3 X5JvVAZkvipuiIVgkZro GG6hUNRkucucDUQewV2b NPNaC2f1MqDlDaU8JMce N6OoofE0INEroLPq ZCKecSHGkO7vbfzri9cf zwlvRqWrUZAkWZz8PKq3 NLHusEgrGbBnMVO3MoA5 XVT8pXBpdL2dbHxs dmpmeZ8sSds+DPE3yLOg nVTYEP8dRdxzcFN+PHRk QYS2zSvsYDtaHLUkzY8a QKAgR7m6DjZnDxV3 OXyaM0FnzbS4FCIrqDQf PKElyUXSnX1qtpsjf7qq lsloLuOkKRPwDYn6GWl6 LWFsaWduOiBsZWZ0 IjG3UZD6pEQsxG3sxZio gknjyI4zPlu+QmlydGgg PCU2FQu4C8FeRbm8ZXWt pSpqPB0sdWCpUFsj Yq7rwOgtnSrsXY7qEYKn nlccr947HkLda9dcVITi xGRbSCodFGD1A81uu9A7 RLSfRDPzNLP0iOI0 qW3yvLezjnxflQIddEqp zsRmgQqzXMpdQGhoE179 AUMbhBzwHiWvPFg7R4Cp Qgp0CCQsbYnxCR9x rRRlNTfiDd8eaSlkbNrm JB3qQKNulavgc976ShXv p5pfQPRodQGuNHpaQND8 J07no2H7ELWoIPWj PPA2pGG9gS7fjEpolhyc bGVmdDsgdmVydGljYWwt FBymU354EJWieQtiHnYz oBl9O0LuRfv5VHJj fRelXA9xmCWmMRrjTz5p qKwueLpyYV9dTCIjjqod t593VfQne2owERIqwUMo ZNzrBJZ9M68le9V4 ZXYeXWNpEUZ0rLP3kM1c bGlnbjogbGVmdDsgdmVy wUxnJTgvKKbqY098GISe cDsnPlBhdGllbnQg ALptSPd7I0MtNzcrqNV+ PB32ZXIuBD48kPHszTOg v6dczCo1FyDeOBHiNQG3 vOksIThpu5GyPRGo Z70wlSExf9N9FHStkCrm cDCkMzFweJH7uI6tFFgo qzlbh2lmaavkDclut2uo fv24mV82M65lARrl ZHRoPSIzMCUiIHZhbGln hd0rdH5gSn8+PGNvbCB3 rUO0hF8rXBRiFnF9TQzr R576UyAbvYPxAbmu q9vmi7zteVt9XjR3MSEm cxGtyFyxXWW1s0DnJl88 O70xPPplOUWvWSIjIJLl AFZotPidev3bqK8y Ii8+HABztLU1eUQ2nA4h SgXdFiY6NYsbM031GrLf eZOlApzxX92dJ6ZhuSJ+ WHAsEne4OKBtrCpm JJ2eoJMpIOomAl5qYFM7 MmBcFzLqYLhzG9FeRNRi ayojmpppxFO6BPJnPTQv rP15Ni3ncXueOTCx fCDAnY7ndysum0abxszz AfBqIAAmZHs3WUu5XIRu dHtuUkIpCMN1GnG7WLV8 uNSvoV5rmCaskhek mU5qC7KeFUOgjnltZi36 xL2xZfXhWnV7XMknVmb+ W3ZXPgwhVF5BM8zPIKzm SzwvdGQ+PHRkIHN0 cZenIXwpXQNinI6gILSx E3t7ViYhDrZ5SQckD4Jz TIXnspgoTy94uH1zQaNp DeC7VSkrD2WzvhI6 YZTbjVUlMKmkATO4X08u f0K9KWZyMSNpDUH6fTL5 yE0ltOfzekaepZUtuNcn dmVydGljYWwtYWxp K425WZRfvCsrXwWjAkR8 FbA3EbQ8P5RnUdu8ZVMj mYvbLT5seSGzXPinOd5f iEuxcMopBO6dWJRg qepuBZHcmN5lEBWunGOt nEbmLS9dAVFpxmtjd820 MvBkSXP7UDQwvWYjY9Wz jB1pEdSbYEGxBODx X7JatRMtQXtxX455TTrf YdD9ZPAxziPhV0JqYNDn iCvjZwY0s7Y2Og81ADHV ZWFyczwvdGQ+PHRk FXY4nHlmDFxyIVPasY5p EGOfV1j5ZgLvJpL3ICtr Y3UkCDTkyufxFr07hY0a LwCdCxD7JEagA7Ou zwD2ADBouVQmMGjvICR3 P72my5B5FNRwGOTyTCZ3 mNK2gS0mcUrpdfthgBIl dDsgdmVydGljYWwt TPueQ342DNJrwUkpYo5W WOG8X7CySrt6WFKrlLjf BG2ebGDaQSdbDb2jsJuz dFpmCU5eTOGjfrts SBXkyA9bXTGnhRKwgBni SI2nHOHjylfdv056PoTa TRE2DNPluUHjQ0WumV3b EiFiPCKaQGZhN2Np cZZoESduX985ULuqPhV8 XQEypqFhT9LoXJBvkDgl TdK0x9J2Wl8EHGvygIG+ YS16rx39D6JmBily Web0SADbFES2uWB6eR1b RHHnBDysn7P3sBU0I6Bp sfNhvf8eq8jcPDJnLWbn H00reGVdn3K3CNLp cGL7QXGqoQaiHqUpvF97 Oyc+QVMquJajq7ZyKghi y0uvd3ywzMl2QjUjWDQu xwHrkPymAYT6h8Tq Ln63N34tEUqaDLUrNABk BWEwVOFknAmmcl4buL2h Ii8+AQDweLS9dGK4aJ4x ZqVcKgR6IJamN093 YjFpmUToEovff8mni6vj wSc4YsRwTNOjehGmyLas AUX4v4DqRq64C8WbhKjn x6IxCjs8iz63eLCg s3Z8tUB0C2HaOJGwvkzu rJVpwXygGR1bXLMugjab NVAqrH3mDEQyC3x3DlBc BjI8TPshQ6LsneL7 YBCrdZShGBLrxPMNpB8y bmjzh0rwoxwhSgBcXVHd JKj1HPt5RCEoiUhyVgPv MPY9IuU9WBW8sKYs eX6xtTghcmgobW7pTgf+ WQl8a7qnfOOgQF4fvUX2 SK45DX03uUCux0Z9tSS4 W9UbBINkvbtlknhk dWK1PIDvPLNytA19Ms6q oUhrNr8gPTGxCPP2FKFl bPJsU9NucG2bOsIrJKRq SIQsF5WaxJThLRya H448BGhqUpB1ZDDgtnGh K5UwFVAktPdfAiF5h1G9 If0AEK12JA66ML82ySPi r6J8pSH2Y5TmTCZm tbduvvicuLZ4OKBnAPIx bS90Ha0zsCthFf0tTHIn LBU3RHNszHFfP0FprU7t UuWhOLViMAKeQ4Ux iKUxOPuvK089ZKsbQuF9 XYHamsVgF4NnMFIvxIlv CcY4t0Z2Mw1QYi18RB60 AT58fMOyf0U5iSR1 Z7BmVGAyrynjmyteqSG6 WXExCAAkpY11Sc3qxVxa Pl4fZZSaGAG3VCItmCFu E3BsbL9nDhXzTKBr FABpM2ZwvZJaAPqjZ988 ANunYgU3PTGodrUwG8Jp UXEraPwsBnZ3a0C4Go3N ZZwaavp6V4YkJfqy dHI+VC15NQBkQO35eBTq fDFci9wbsUw2LoFaHVXl CBY9wBeaQOpgd5HxJOGm P98poBYjj1J6KTCq bGx (more content not included)... [facility] Coding Summary HTMLBase 64 RjkhbmveUTf0iOk+PGhl YWQ+PF3XIXVtV77ceWCl eY3yP8QLVSlSVjiyYXPM GIkZRtSuvzFcRW2meFOu ZXJu IC8+RB0jXFWcDogcuQQe u4C7pRO1W80tkn3eZLsc oBW1FKCoEjKgfgbnu2yk cVv4MPniJpwsYgJn CBVcxK66LOL3pG08Ka93 vBPfaBJrw8xvnMm8VcOb FCEoLCZ5qJucUNltu9Zx QIMcQ70ptAAop8R0 IGNvbGxhcHNlOyBlbXB0 uO5jIOpjefjih0whfhjj Mub4ne86nCVcu5G4hXG0 X4LcpzB3PXIukZWx XbcyaPLKpL9xukhxj4qs diycLaQoJQEdRHj5PGk3 PLRjoAtyYeQxDL92LNP7 ELYhlnWhC4MyVFVa iSzpQnJ5m3D2Yw0XU4XE FkueJ1CFFVUNUNqbmKD+ BH60uo37V9RrSsmcScw0 TKLvSUR6oWV3iM0y ODTzOZcbj7R5xQB5H7Zk zvOipt4kf5yjSBIyZMth S66oaQBpj6W6JIIofSD0 XXEqfSzhKmPtlD73 Oyc+FXCntKaie7IdQhxd v8lcw9uhpKp8AphjPXHf ljNcxFnwFEH6c8UyAo3s CXOofRX3pNS0nT7j UdGhMkL8TYypW448DuQl hGZjJatyP68uJ2SpaBY+ GMHyLdu8MQKwtVtiLX4w D9JwWNNsaoxdfHCd rMvtKT4hZFUrdtoeWEVd kG9hRWXxK7s7KpNzBiD8 MPmzD5EzGERqnpdzDs29 kJ4yEfGpIiN3JBfv Z8EunxZ5ZYScpHWfUFjy VET0Y69qv2K5MZAdTQSn SCU8pUO0lS2xvTgxldqm bGVmdDsgdmVydGlj AQbmYOhuQ449HHCnrBca PkNvZGluZyBEYXRlOiAg MDYvMDUvMjAyNDwvdGQ+ AWWdDOD8jBicAKJf oHVrMPxaTl2lgFxtnNtt GO8bQDMkqfusAGPcwI3d TPVizVEnsJahWY6pLCSb fiexd832DpBbYFS8 OTWzjCZuG2VmwI3gOtPc NAGiVHRmI0FzxRFwCJqs P243WSclKlT1MHLitsRc F6NmKSNzxMguOvQ4 f3X5Hp2Ac2HgqusgL0Jg oTZkPdQqOfwrPEv0B4Ki PjwvdHI+CN64VLHnAK06 NKm0AWI5nXycGAen LAJhD4GqwN3aMsDmYIPa ZGRkOyc+PHRhYmxlIHdp ZHRoPScxMDAlJyBzdHls KL5iMn5lWTDfITYr tMndyADxVzQkf2grTLKf SUseOH3djVwpN1RabEX2 ITZfh0k3Jh36I40wY9Nm dXA+WHKthJV1tPZ3 lM0zXoJrSnT9URqbH517 ZbNaxVBkReodh3vpq5ab xRk2EdT6IQCzzuNsdEvr ETA1s7QyOy99A02t IHdpZHRoPSIxNSUiIHZh mYkuqm0zcN9hYr7+PGNv hFE3iDU2dY8mBwMyDtB3 VVwkE658XnTfcVLx Gldpf2rmd8fvsIt2TvWu SGAvwsGkkLiwQFB5g7Bo Cc72R3OcpJuwe1VwIxw4 vq77vBNup6P4qMK5 S4OlHLXmxuovaHSvmNei RB8jVCSmrklwJOLxnW0h XEOtA0g4IfVeJaZ3FGqk X4UkhzN0XKEqwPAx UCQjkSYQyZ3vllopc3gi janiBjJkVDZsTDj4MYs9 SROveFykKfInSNA8LiL8 UEL1pOAldX7jtQtr mpjprC4uOxb+VCW1cVQd tSKFTQ3iAxhwoLZ+PHRk MML0cCynWEmwPUJvhX2z WGSwW1h7NuAnPqS1 UDnhM4CmzxH8IGRjfLAr AQRefTDIdC0jzvlua5vz yfunBkUmFELdTDk3ECs3 LWFsaWduOiBsZWZ0 NfO4IGM2kUJlzU3ceCyb vstiwO5lPzm+QmlydGgg EPB7GRk6I5VpLvi9SRMd mUveNW2uhTNqXBsn Op0ovCfzbJiqUQ5eWUKl mclzt735QcMnc1qoMHFh iHThWCohPLO5N92ke8B9 BQIfCVAgUZW5gPP0 gZ4knDervddoyLRdcRld seQqjEfxKMvfYAyzW527 QBOenDxjEhQrGLq3Q5Aw Rsw4FOPaqDodSV1i tBBmYMrtOw6byBxijNbl XH0qDNQnpbnlf196YqIr t1xuEWJwsJJuPQbpLZS3 R08ns1Z3CASjKOEu QMQ1zVQ2wF6atStbaucc bGVmdDsgdmVydGljYWwt WKsoL865QVRpuVfeVlUc pBj2C6LiHxc6HJTz wJacNY6xcJFnKDbmQd8a mPinmOdlUE5zKIOkoyyk p431TjDtk1tfDFEvyPVi CTdqAJL3M83th7R5 RBCvYILsDUT4cFI2oO5t bGlnbjogbGVmdDsgdmVy rNwqBGicMSdcN062ZXPb cDsnPlBhdGllbnQg KEisMWs9N0HkQxbjzOW+ AB92BRUvRM61tWKauNJc w5mssJm1UaLeCFQmVZB9 cBofSPehc6HxJXMd J61hvDOiq4T3DCBvdTeb nVXcMeEffNB1bA6fBMhz nfnrd4huqzjlEmgvu6fd qf61rH18Z30tJNwo ZHRoPSIzMCUiIHZhbGln sv3wfK9lHz6+PGNvbCB3 lEW1qW0dHDFtFdG1PDdo S018WjNqlFSiEkqk l8dqh0enoCd5GrW1ORFg ogRleIhwSDR1d2KgGk91 U71vDBrjPJUvFAZgVBQn XVRtuNiegh6zrA2j Ii8+PAWjsGU2mEF9iV3q FlEzHaF7GCyqY626DaZi iXNsBxjoU06xN7NqoIT+ KVNiMzt9HOEjlTzy XX4pgXIiAHpmNb4bRJA5 NxAtSrTmOQuxD4KeBMLa mpjkarkjcBR4JUNeIPFv oP87Xs7zaGheIKNw sTZHoM7ivuwcj2wfqjha EtZwZWFuNRp6JDf5RDCp ySpqTkSxFVM9KkS5PUG5 wLIrdL2haQmehnwv fH8eS8QhPPEdxeppXg19 zA4aDzNuUaT4ZTucGum+ D0KJEhxuCV1WZ0lTJRfl SzwvdGQ+PHRkIHN0 fSciHJjcNOVayL6zDHAq T1o6OkJrByS8SMuyI4Rs AXVwwjizJf38fM9rJhEw RqL3ZUvyW7WvscL7 LJHnmVMrLOdqGKQ4F39j g6Z4EAAlGEOmPET4kTK2 rH7bpAowtakehGIulNem dmVydGljYWwtYWxp Y092UMRgvQioPtWxEuJ9 KkI2QsR5V6EpPyx3AHHl gVmdXC9ymVErWOwjBn3y dTzhtRitFN9oOMNc lfbkQCDwlQ7iFZIrmKVn mCetVS9pFLDfspulx379 KoJiMPD7EWXacKNpR4Mj lN0gEtUmEKDrQYNd R7SpoFCaVFhgC350PKgn GpY1YDAhaoWcY1BhPQVv zApaAtU2h2S2Ff65WNLP ZWFyczwvdGQ+PHRk VDA8rIceJUbxQCYgyI9x NCMpC4h3KkVbKpE1RLsd D8PyNWPsqxgeWd00lB4f FoVsMhD8GCqwS8Dx zaH9CMUwcSWrVJtwBMN0 F09gf7J1OVDtPELmQZQ5 vRG8wE1slZodrensvXPb dDsgdmVydGljYWwt QYphY469LFDrlXbrLt2Z AFG7V7HcXhz7DSBttAij WH9wtWMtCMiqHc8mxKmv tAaaMP4cPPDvrkdu NKAjgB2eNFBxhRJqtTkv TP7gRUEfemgen110YbKu ODV4PVIobIMpV2GgtW4q HmXyFYZsYHKpG3Iu yXJfNJwsM319VBnnUvB4 ASDztgVkP8BfYDYtdFfw KwM1x8H6To7HBOoxlCI+ EP70or81Z9AdPdhk Chn6XHDbYVR6kHB5gV5g BBHpUBixv6T2kDO4Z7Gg pkZpfa6pp1joCWZxXMir J04xdKNbh6L7OSQw nLS9HRGncWumNdEwrP11 Oyc+AOUexIxpt0AlRwhw z3khv8ixsFs0XaIpIUFj oiXurGkwTGQ4v2Tx Ij27U66jDUdvLCXpQBSh MJOnSJFdsHsfiv9vrI5g Ii8+LAZmaEN1cCO6eP2g RcDxGhG9WKjzQ489 VfSddWKaJytvv5kza2so uPu2OoAkLUFqwrHtxLgj VRL3t8MtDm19K7VzwUmc o7FyWuf6ui10fWUi f3B0zYJ4H6WkDQHarfyt vMSzoEcbYC7hVRCxmtwl IBMjoL7dMQUrF2a5BaNn KfD1TJjcJ0FtjxA3 MWVqhEQyXGXjrNVKxK8e hwdde8wufmxbXnJmELLp WYt1RYp4ZZKjpXalPvYk BSH6SmH1LGI5lGKc eF6jyVqjnjwybJ7fAto+ SVa9p7luoFPsGD2rpYJ8 RX24GC65wOGbs5K0wSX0 Q4MeSCMwbvtsciab lDX4WDCfMPBzhI17Ff3q jHtvBo7yNUBjFOQ2UNIv tCJiP7AiuU9tIcYkGWZb AUOlT1QfpNRiAGsv Z880ZFysQkX2AZSfjcYq O0MmJFXcdVuoXaE9g5V3 An2ZNK38LT99RV25jEUv f4S8gVC3J0DmBCIf qkzkhoumzCC1LNJzRMJk lP98Bj4grBviNb1oUPLw IWA3JYWovFCoC5IxjF2y BmJjJNCbCVKjI7Nd vSHsRArrR300QZqiFjN6 DRGocuOcN0HaCIKwrVle XsP3n9W9Me3CKf55LZ71 CW69cOPad1X7gWS0 X0UpUJVqxdwqxshonXZ8 NFFiDLHelS64Hq0jgImq Hq0gJBFyZZU3ZFAddHMy D8NecK5zYkOcVXIe FBUdE9OepCMiZAcyA161 YJxzHzM7DONpocGvY3Cc MMDvlEtaPpI9j6S2Cs0T BWnllnt1C8AjItug dHI+UP58IGYyMO13jMSz jEPym8vogUy3VaOwTVFk ONR4yAfhXXoid6BpTLDd K92bfYTrk3F3ZFWi bGx (more content not included)... [facility] Wound Care Noteon 10-01-2023 Wound Care Note [id number] [email or web address] [facility] Ambulatory Patient Summaryon 09-25-2023 Ambulatory Patient Summary [address], [address] - Visit Summary For YRN RICARDO Age: 63 years Sex: MALE : 1960 [address]: [address] [place], [address] Home: Work: -- Primary Care Provider: LESLY MELCHOR MD Race: White Ethnicity: Not or Language: [place] Health Plan: 1?[facility], 2?[facility], 3?[facility] Reason for Visit: Three month follow up for med refills Prescription Information: If you have been given a prescription for narcotics, seek immediate medical attention if you have any difficulty breathing or any sudden status changes such as confusion and sleepiness. If you or anyone you know is experiencing suicidal thoughts, mental health, alcohol and/or drug addiction problems; contact the [facility] 26/11 Crisis Hotline -text 4HSPM vv [phone]. Follow-Up Information With: Address: When: KAREN ZAPATA, LESLY To [facility] [address] [place] [address]/[address] [place] [address] In 3 months With: Address: When: LESLY MELCHOR MD [facility] [address] [place] [address]/[address] [place] [address] In 3 months Future Appointments ON LICENSE OF [facility] Appt. Date: 12/24/2023 2:15 PM Scheduled Provider: Lesly Melchor MD [address] [place] [address] [place], [address] Future Orders No future orders Additional Goals [...] 3 m2 Body Mass Index: 47.2 kg/m2 [place] Body Weight Calculated: 84.047 kg BSA Measured: [...] tab(s)(650 Milligram) (more content not included)... [facility] Patient Handouton 09-25-2023 Patient Handout Orthopedics [...] walking or exercising. ? An inability to cosmetology instructor items, twist your hand(s), or control the [...] aerobics, that increase your heart rate. ? Glxwr-tp-zucmjr activities. These help your joints move more [...] above the (more content not included)... [facility] Coding Summaryon 09-20-2023 Coding Summary HTMLBase 64 CraesjeoOKr3eDq+PGhl YWQ+IR8PPQAyR00nfCVp nS3kO7YZODgRHajtFCYT BUlUFcLogsNhKK3huWAy ZXJu IC8+MC2nGYVmJfbyyBOv e9U9mNS0U92jso5jRGrr vPV9ZWQcKqLslcqhf9vf gKc5GFbyWtqjYoXd PMIelH30JHB1gC16Ah17 fJJnwVCqm6cspEr9KzHz PXVpGUD4lFkvQScoc5Nt ZMFuF71apSGxu2M9 IGNvbGxhcHNlOyBlbXB0 iL8hFHzefdmjl6lplsbm Kjt3ul90wGFxw1V6oWT6 R7WhysZ4BOMqtQRw FnrphGDEdK7dgtdvk5bm bmvaAxKmTLUvZOs6DOu6 MYYfmOctEkGqMU86APC9 RDApxbXdW9IwBZMj jOisSiP7d3K0Sq3YX3LD AfmgD2UTITJEZByixZI+ FL90wu15Y9SpXqbvEmr7 AHFmETD1iHR0sW4k XSCkYWiok9T1yUC3Q1Sj fxKtrr6um1kwPUPhAOcf I17gpKBio9Q3QZHgvHN9 QNXwdVhvKtFgeD20 Oyc+CTCwaHrxw4DbZshn x9lvc3qwfZd0MvyyLIPw keTkrBizBKC2n3DpOk3y VNBrfBK8iJJ7vR9x OqXnNwX4YFdyJ554KeTa tBWrNrcsN66sE4JlhMX+ FRApIfi0DMKirXkxDK8l C4YbKSBowmdkzNIr kLpyJO2qSHHbjumoTZEg hP7fYPDlT3a0PySaRbT8 JOwrC3AsCIKyxvfsKe61 kA9nWuBfMgJ2BSew W6EooyY5RIEwxKPfAFzs JWY5V98fw4F0KDIjECEh NFC4oLF2wY9eaNbndnwx bGVmdDsgdmVydGlj RYbqILxsJ463DKNwzSjv PkNvZGluZyBEYXRlOiAg MDUvMTcvMjAyNDwvdGQ+ LZDnHQG2vEfpPBNl nDLiBWmoHq1waVmntMxv VU6oPDLycxcqKWPybO2c HJJpaKQllVqqSH0lAHPf tsnai476CtPeHAK0 NMYfyZTsY9ZgbO8hJdXc AYDdMOSjV2WpwEBiUReh X131PTbrHkF2ANZvaqSf X9TeAXTorPsnQqJ3 n9X3Hw4Hz1VtdzhtV9Nq xYRdUbPyTnxnYCt6P0Sg PjwvdHI+YO84AGRmHU87 FUr8TUW1pCltWXyx KCQvR3EfgG1oQiXmYAHz ZGRkOyc+PHRhYmxlIHdp ZHRoPScxMDAlJyBzdHls GF6eAn3lBGFhHNTr cErfkFFmRmPbj2tgHOKe XDyaAU0lnTsyK0IinKD1 HTEir3x1Ga38H61pW9Vn dXA+UWApaMN7fEJ2 lY5kYhXtVsL0YRtpQ321 VvDltRTfFaxts6obr3ao fTd3NbB4JCWzrzNweJag VUT8x7OyVj19Q96d IHdpZHRoPSIxNSUiIHZh yYqgrp1kdV7sVl9+PGNv uCU8gXU9zF6tLzAmKaA0 ILtaL359RhWstERt Bcdsf1noi4pyqYz1JrMk MGXcfgIkgJnuJCI8p5Te Cm09B3FbrEaxm1WiXgv2 ya43xUHxg8O0xMY0 Y0LgSQJxewuanRBkfNcv RD1nOGRfjfnnKSPwiT2r HXLkN0b9GkFiGzE0GVdw L9DkcwN8GIJsmJOb WKOciBINfS7ytsqiu4yq oawwEmGoCUQrFOz4OEm8 IAUnbPcwOlKvCYN6FhJ2 GVT3zJIjzA9mpXic luxswU8nPbb+UQA9kCSi iNARHD6fNlssiQU+PHRk SZC4oXcaSJmmXAXkzD8f IEIuG8p7DbJiWhT1 MMdkO6FqxfB5OAVceYYq QNTowITEgH9jgmvfh2uz rxwhVdHaEBRgNPa5OFf5 LWFsaWduOiBsZWZ0 DoZ7MPA6sUOyxZ5wgZes dnjpiN8fZxu+QmlydGgg JJQ6KEc6K0CtMui3EFEw cOzuMK0spUHaLCak Oc9ggZqfzHvmFA9zOJLh tedmc050AqIyi8zwFVGd gQGxXRdkOOQ1B71tg7C0 VMBeDZDzGOB7bWB4 uI6fnKmmzrbmjLWdhQeh syHkoHooYXnrKOvyX001 WXSsoPxvQbPrMBy3U5We Ybb2IOTqoYorRI3r gDUmNApqYj4oaHctwZtf QG1rULPgfivdx956VuNe t1qoEPThjPHdHPjkGAQ5 C64zz8N1YSZmTMVq TBJ9zNY6fG2rlOnqbvgs bGVmdDsgdmVydGljYWwt NNqmI839MMMsrDfyUyDy bOy4N1OlXre0NEPh gUriAP9lrCUrOEtoVu5n eDjmmAiwLX3lYYDqtqwn j416JuYqt3xoJKTsfAPd TWecTNB8X81zl2C7 KCZtNUQeAQC2iCW7oS5v bGlnbjogbGVmdDsgdmVy xJncGGhfPVhjN346BVKg cDsnPlBhdGllbnQg IMqvCMt9U5MfAbqxkLS+ LD42XKWpNY30iOGulQPq e9ytsAw6EdIxNKEwBLI5 gLcoLOnzk5RcZXQq E47bsBGsj8F2SGYacGmp fIEaIsZdgQU6fI8sXHnb sfpur4mlvyvuJtmuc2wt hn11yI80N82bLLhy ZHRoPSIzMCUiIHZhbGln cx1yjO1eGc2+PGNvbCB3 tNV8zE2sQEHfKhB8FUjr W696ZyFmkYFgDiyv e1fey5twjIp5HpO5PEOn dsEilXfwLOT0f3ZpUu05 Q35zIFpdLVPmYRTwVRSe JBHazSqufp2vbD2c Ii8+CPGqbNK5pJD4nR0v VlOnSdB3NEjiX154ByRq rKOkDmuvA02gF1AgfUT+ BPBrEhx3DNInqZte UA2jiIPpROdnPa5zZHC6 NgAyFsHaVFuoL9PeVGRh vozwrkkwdXS2SARzGCSo qB87Xs8ifOcuHTCz kHBNqY3bwrqhv6mabgqe UpVcINLtACn7ANj5RBHc iIoiJrArLIP1ZnV1NCA4 lAJdtU2caUmlkpnl aC7eB1KzQZXdiwfuRz67 aR0mGeHeRzQ4IItlLty+ H5UWIvcvTF2ZD4fQFUti SzwvdGQ+PHRkIHN0 mYxyZMmzLPAfeN4jXXNj T2i7PgXpHdE1HXhiT8Xc UEPnahzwHn57gK5gLpFw IbR1AOaqE9HxuxQ8 OEYbqYBaASrtJLT7Q73e k7D4WKCyHGVdYWA4bRV6 cG3raYueztrnkTKyhNdr dmVydGljYWwtYWxp N952URFdbDkmMzIeCtN7 PzS6LlV9L7EuQsz5QAHt bEucMK6iwXVkPQpyKi0e kOgpxHmxPT4qSVNq yduaCBCrkQ2yETCjeFKr dNsoZV5aJWVzrlgdo587 TeDzQQO2HHVvmBRlI7Ld hA8nOmTgKACpBUDr U6VohUSzOYlqY840QQzp GuR7QFOfxfNhQ6DqOVWj qCpnWgR7t1S4Yb04BNMD ZWFyczwvdGQ+PHRk RAA2eBgiBEbgZRIscO6q XDAnL1r3NyBjUdD2OQhs U8YuYPUbyiyoOx96fS3t CkAzWlK8QBetL9Th gfQ3QHBjnYPbQGzjDXF7 J78eo8C1LOOlKMJyFQL8 vZX3yG3jiKdazfsajTYr dDsgdmVydGljYWwt BOhvB674CWMunXavPs5J JUL6I0YiWzh6TPJqmMkb YD4keWQkXCtzXw1czWbk jFtfWC6kQUVrrzie UUQouC8oLMZvxKTotEnd NN5lYJUeiksqy478JsLr DWZ0UNPliFIpN5OmrV5i EdHhNYEpSXVyG1Wm iFUsCZnkA675NAnoZlU5 VKLsstZdO1XhNFNyaEed KdD5g6L6Bi8YRZjurCB+ JK70zh22S5IjEwqn Dnj2VCKxWLJ5jGZ4cG3f CTKpNNmfz8H2eFL1V4Yv pfRivn5cb9tsVYYgUGqb U52isEMtw4E2NMGg pNI6DHEolUmeWfTarH06 Oyc+FQNqgXsbf0ZpXuji x1qvz3biwGe5UzUqQUFt llIcbEcsWQH3o3Yw Iy81I46sBPljFHWuDIEj FHDnRRChvUdila3unT7p Ii8+YNKzjSN9oMT0iU7t BgGgQfF7WVgsT094 UsUinWKfElsum8qgv3ls jTd4TkZbGCLmmgXoeQys AUQ1t5YqWb20R1LevJow m7GoScn9ps38zXIw t1C3aEG4W6MwOWMphgzz aZKgyKogKU8xENBdglze IZXmiI9gCLJdW6d7GnZx HzK1PNhcW4ZhroJ6 FGUqaWOoDHDqgHPPxO6w rwuzw5ulvhhkOvMcKVUg VUq2VAy0DSZdkBofKxZv VRY7ZuI1YMV6gXHk tC1idTjctvykgQ3zJuo+ XBg8z3ghbGRlGU4gzGP3 GI82MN12aQKzn8C4hFA1 B6LtSSUcoahujrwu mYY8IVMrMLNidS88Zk3q zQbdNc6mYJObZHP8ZJRd lIXnU9GdoL4mInBlYTEj GJNhO5VsyMWvAYll P881RWyhVdI3JZRquhHo Q1EtWGWdjRomKlY1n2M7 Uv9JQK69YQ54RJ89kQUn y2F0zYD8R4DwCYWb kslfscvivHV8FZEiOANh eB99Pa7akMadZb0jDPAx PGO8FADxrHAjH6FscL2i UtEaHFGsCIGeZ5Gd aRNxPGglY724MBwpQeU9 FKLuaaXbR6QxQAXqmYia ArB6q6N0Ul2XPe68IN91 XC29vPGkl6X9fCE3 Z0BxSHXtqtkiuwswaAI4 OKPtVFUqzZ15Pw7kdPcp Pu0tVSRiYHR0DIPhjAYk A5HuhP9kJyYxTZJd NWVzK9LqxAUiWTkdV174 FVqxHnO7LBKebqZyZ1Md BMBlwCpjXsM3u4Z1Tu7Z HNhutfe2T5QyLkqq dHI+OO97EIXeIQ38lLMt qKUjg9kezSs3UwNkYATc DLF2xXdpEDzdl4NeUTHe I51jbXJlw4X5HUZj bGx (more content not included)... [facility] Coding Summary HTMLBase 64 IlfvwfoqHOz9xBj+PGhl YWQ+SP6QCRFxQ01fdYBf bN6gB7SWUFfSDcgnCFNL EFtXIzCrweHnYX4ziWAa ZXJu IC8+FB6zGXBaRermeFPt v6L1xNB1H02duv7vLEih kXS3YFTvIrGnhvaqa0rt zQq5PRihPivuYiBq CGFwjL42QXW1fP57Ft12 pVLmxMHxh3zoyAo3XeNl GANhLJJ7rApuXZkwg7Ts TSLvK13epYTww4V4 IGNvbGxhcHNlOyBlbXB0 hA5oNGmaztiey7cwocjz Hnb4ml84dMNln7V5mUO2 P3RdqtP2UEVpzBTb NnuidHJWqF9vewmnb5zo vbmtGzKtQRAiETt5VTb4 DERkjSlxIhRmEP20FAX8 WJXyscTeO2DmISNy zJnzMvV3m7O9Om8ZM1EO VowbF6PSSWXFHVupxIL+ AA85zr15O3IiSwccHip0 HZIoNHP1qQK6iW4q PKPsUKebj8Y2rDE5H1Mt eaPslc2pi6buHNDuNZez R84qkQYrv5I1ETHafNR4 UIEisYgyCaSblT22 Oyc+MRJczXuuc4BkTikn r7xir2wpuBk1HeonFLGc qsJimZkiPQZ2g9HcZa7e GUGfcDB5hTJ1hN6z XzYyOfT4JUncR527EwJp eCZrCaoyC31uM1TwxRE+ ZCByGuz3PTAgsBvuCF7p N8IdNMCtlnujeLYn rKfcME1vCZDiiiseRDDa qE8uXRRpY3f0CmSlDyO6 WVifR6EiZOBhkvnqTe64 dY1bXoOhKuT1YQbu H9IfukV9FNOiuKYnYRnx ZMQ7Y30ud0O6EUCoCIFl XLL8nPB0eK2qgSqnderl bGVmdDsgdmVydGlj TPwpHQorX231HRRxrRhx PkNvZGluZyBEYXRlOiAg MDUvMTcvMjAyNDwvdGQ+ KBOmEEB2zCmeWPKe aJYmTGvnZa1jtDhewNof LA9fVZGmlhpmDVEneD5x LWFhhDYjwQyiJA1hEPBa avqib101OwIeXZR1 UUXcjTNkG5ZncE1ySkAi SLAsPWNlU6JfpYFgDQjz B301CRycZhR8NQMwhoCk B5MdUIUdmUqrHjI9 h9V9Kt1Dc6SkvaeyV4Cz yZLxSfZjGavyCXe8W5Fj PjwvdHI+PJ89OLOsZS50 URn3PQE2jOmrPCln EOAiW6HkfX1yWiNsIKQn ZGRkOyc+PHRhYmxlIHdp ZHRoPScxMDAlJyBzdHls QH1lNw4xTKPiTUPj jRsqlBEhMkWdu8djKYWb YSltVR3dkKpaB4BdjXS6 JPAdj2i9Yn27V72qA0Ya dXA+TNGwiFT1sBA0 mS1nIlChXhR4PAsgE370 LsGswYTaZtqmp7ayx6xx xOs2HjY1PGVnggAjuIbv CPW8n0PcMg84Z35a IHdpZHRoPSIxNSUiIHZh gRepvj4ioA7xYw1+PGNv bZT9gGD6iR6lRsUxJgJ0 IPvjS561UmUwbXVu Kmang1tnd4ujzBa9XzEc BYYcnlWjgFhgVFX3u2Hq Qb53O9YysVivd3MsDri5 eb88lBZni4R4eGE7 B9HhCGLzudncdNRanYtv CL9jHKRtksngOTZwxT7i EPGpS5z1CwZiFlJ4VHvw A3QldqL6AAFooOFq BUPmlUNBhM7wsklof6lr vfitDkRgJEWwAEi0UKy4 HNAheKdeMmGuYJO7QtD8 RYM7xGHltS3xfHqe wmxooA9pCsl+XHC9iZMm fOONIJ9gPohivTS+PHRk KSV6dYapGOjpZKBsmA5l IQQeJ1k3EgUaRzH1 VUlwR0AhaeR6FGMppEBw JYOxyWJTxL4siwzvd4da xgdvYcUeTOTbZBx5JTy3 LWFsaWduOiBsZWZ0 YeL9CTK9iFAbiA8axInt timzrD7bCgg+QmlydGgg RSW6ERm1R8VcTpu1HUUl iCmtLG1wuSNzAXln Cb4wpCusoNjkIK0iOFNp yfaqu155NlJmq2qtLYLi uRMeWVapAXX3Z95uq0Q0 LCTmQANuRKZ9vFF9 nF5mnSwyfofieIZywWud ryYbxGgaGHbnQNliL948 QWEdyDdmPzHlATy8W1Ku Hle2ARQnpMonAI3c vZTrCXuwLi6ffKeraYzq OC6iAZVpbvauq774KqAb e1trWVWqnXFmTRgbDIC9 X00iu9S4WHPdCLDf EAY4eFL2eK9sxAkjhwli bGVmdDsgdmVydGljYWwt JRlvB135ZBLleGurIcBx rAv1M2YlIth7IXHn oDwqJV0krNCtLYvcBc5v cXbhfLssSR2sVVQvpokf p844SeEao2waDIOthUTw WTpcAWV1B75ho1I0 PBFzGBNmVGF4lGK2yJ7c bGlnbjogbGVmdDsgdmVy uQqkJJajYKqbQ000DVQz cDsnPlBhdGllbnQg TTklBRv1S6RqNpibrXM+ NX51ZZKxZO08cJPveEXj h1cvwKm8DkOyJIEhXVQ9 xHplQSboc4KiHUWi E12ubKAjj2S0WUMocCgx cIKgKtFllZD1xZ4tKGxy mbjqu6sysenxAqyie4ss wl63pN60J90yIBgv ZHRoPSIzMCUiIHZhbGln fe6xsZ0bVd9+PGNvbCB3 oHL6vH3xABPtTdM7CTnj P201KkFhqMOyTfyg f1rva7dgwCr1StR5RJHu lvCovBzsFRB5k4OdNn06 F34wYKseUEYnGAYnPOBq SUHfqNclzf2esY5e Ii8+FBDwlMM9cTT5kE3x KsOsEdY2LPvxI810RzHw zQDmGrnsQ06tZ3WulZV+ KANaYvf8PXQiiErz AL7nnHApIVkkDj3mVII9 GoJpElNeSVnfN6RdIZQf ttzfibboyKN1QLAtKODd bA76Pb7daGciFEUs uARThG9ngqvbs1mqiytf PfHyDFEmIMp0UVs2AZPw fEsdUuApVAB6OqV4SGD1 fYRsdO9wtXvecxjw hW9qI6GkZDIzfktlDw12 kH9sPfFdFrH3SHgkXse+ Y0FLOgeuPD4ZU1hSEMip SzwvdGQ+PHRkIHN0 dKpaMGhvVOAxoN9hDLNu P3n3JrCiUlU3FFdeN6Lk YFDojssfFn01nN3dBbDm ZlQ7WFnyE9YbonL9 JRTsuRDeLTamXWU7X03k u5O5PDRsTMIeUFE4jEE2 aL9apQqfudjxgKWtyPxf dmVydGljYWwtYWxp E731RTQqjVigZvQrZnO0 TeM4FqB6A1LnZkd0FVYi pSrgSG6xbJJvLBkzHg7s cVytjQyvAP7aLAIf qgubDKMvcU2qXARbwXBe rGbhCL6cRUKhyhiua506 PzThMPH3STXpyDZpV8Yd pD6wSsOsQFPbBENj I3TfqWErNUfzZ309TGoo TyV1RCTkipZrP4BiFHKa dKmzBlJ6k0K3Xj05OLIQ ZWFyczwvdGQ+PHRk NSM1cLkaPGiiNSDihV7u XIAcX9o9BaDeEpR7RVyx A4YmHPWcncdqOp43eS3f UyMmVrH7HEogK4Vi oyK3NMXnnHJfNUljAPS8 B23cf4M8ALIeSBJfJBW0 tPL6kZ1ggXdxpemkxFXz dDsgdmVydGljYWwt KLolR937SOXiyMtkTt0T GBA1B5QgAwo8ZUHplMzp DC8kbBHhKHelAd5zwAee pTvmMU2xVDItnnyd XCKlzJ0rBTShsGQybSjv NJ5pMTJjsdjyq877DjZt JIA7DTGbrBJgR2HzbV8h LxRpZMGeFLPbK8Mo hEAxQJpqL500IFfuSzU3 ZCEqluLaE8RwZREklIjj BcG6c9E1Iq9FLTzqtCV+ XT73xt27J4EnTocx Oug7IRRxMQS2pEE0gE9h VPAeSKepv7Q5aZX3T0Ap gnEfnp4wj0vfMIUjXTzd C82dgTQok1D4BERa bWY9LIJbqZumKyTrvW62 Oyc+FWAvdSilt6XmKwyf t3fkh2pqkWn0CtEkNBBa ncEknLqhPEE5l0Ax Mg71J06uZZavTYLsYNNs TOGmEVSpeGlxbs1mnG3n Ii8+SQAcyHI5zNQ6sA5o KaOxEzN6PFqwX529 GmGqzFSySwtsk3vvk5vk uUl2PiYcULIexcQnmUaz TWB0l2VwXu85Z0GheSht q2NaNmk2nv31fPKn k1C6yOA6D8KiWFGqtwjw rVWrsFxlAF0vXPAxoyun CTIqwE6qCELpD2i8JpCd YfD2VYbhA0BnrbK6 IQUmpZHsYGMmkVPPvR0t soocj1rnzfwuSxGlWRRq BYs0OQn8DAQioNudWtQu OTH3VpC9GQU6vXUs zB3sdUwkkwsswN0bUgm+ PLq0f0wewWGyOU6wrFQ4 QG81SI85gCDiq9E8uQX1 Q2NqSNJmqxysymhe zQD8ZITyYUNwvM54Qt6z qFnzIe9hZZCsFVK3DUJr lLKnJ0QjzL3mHzQlRPHl OEXyQ4NndBMoTRdd S948BXixUkD3WFOqlaMn Q5TdFNNcqClpOfQ1d9C0 Qg8XKV75YI47AI62gEWt s3A6zBW7N7PsZWAn zoowccicnAK6DCLkAEEq mW72Vx1sdGbhNq3qDCAi OMV8SIAutFTfY3OlxD3b TsWtKDVoZSKiS4To lIBoJHezD440SNxiUzR2 RJDwwkPdG1NuZVEzhPew UjF0o0S1Sz1WOz32XW55 FW26cKLwd7H9fJU4 L6IoHDIsysnfyvkbeYM1 IXZvDJGbiS76Gd4whSgt Oi0iQLBwCCL5WQUglDJw I1WhzY1kQkWyPKLj XLJcX4XxyBRpEJawI283 XCviVpI4HDDxloLpQ9Vg PNZvpDwoEeG3n0O3Ye8X IPpdczl7Y7OhYuvn dHI+DF33VZGiMF02yLZt iCQpq5hijZl5QoZoKEQy KLF8wTurUFhkn4HwHHGa Y36ggINtp7P5DAMt bGx (more content not included)... [facility] Coding Summary HTMLBase 64 UxjxxxkwQXu6jWo+PGhl YWQ+EE2GWPVjV17xrPYf yC8sL5OAZVgSZyzsFBJZ SJhVVeCdveOmJA2omGDd ZXJu IC8+IO3tDDOdYhoptZHm x9L5uMM4U04foy6wILnv jOO2ODUuAdBjtxwkc5iq yBw9BEzbUguxMoJw QVLawJ52XMP0zX95Ke37 hCZpwTCfp0hbjBv0NxLw QAClFZX8tCmjKDqjf3Kh SEFvK05npJInu4B2 IGNvbGxhcHNlOyBlbXB0 lN9hEFurwnmal5jtjhyh Wzp5tq74iWMyv8M9yZS6 F2GvplO0OPSziRPu OegzmZSSxU4epvodd2nb sfuoWaPaVKQyXXk0ASv7 HLSodYppJpDaBD81ZGI8 JTCuruLiA4PcHNDd iDpmOoK8k5J8Zc5EV1BE JpfeG1SNRCFNUCmhzDS+ QN00jn68L3KxVwztAnn0 MCVlMGV2fQO5uE2b TENmXLwby5I9fRV0L6Ms naQeks8zh2zhXPOyMJlx O50uoUMgo5N0WLSjfFV4 NGGlsOuzVzNiiY79 Oyc+XARijMyvj9VpWqoa c9gek4brzGw6DlgyPGQj tuBdjQujARA7e7LqKe9p EADcoBK5pII5pX5k VhSpCiU7OEqqA075IbHo jPOiVpwkG03mC0YriPN+ EUOjCrh0WUMzcKenWB7q G4ZeHKAsbbhvhUAz sOcqYU0cEDRltycuQJQa lC3kITCmU0b5XqWrAmZ7 CZmdL6OeLDTuyafzXm63 kR1zUtSnFwT6YPqu R5RzevQ2RKKrkAKeVAht KAV6L90jt4X1VWAjYEEm DHV3uCW5jA9dsZqlonvl bGVmdDsgdmVydGlj OKjqCGawW709BHVtpEvy PkNvZGluZyBEYXRlOiAg MDUvMTcvMjAyNDwvdGQ+ VTCmPDK2eUwuNXMy pSRtTRoqHc9ayLpcpIwp TH1cNXNntzzmSICpyA5m XOOmaZVsoHnjSL7xRLUd uavmf490HjFjAVQ0 QIRaeGXzL1XcmF9uYyLf YGBxCINpB4TdpSJjEJut N973KJxpAdZ1UDIkzbZn W5RrEEQpyMplPfV2 t0Q1Bz6Pc6SjriqbP1Ax tNNoIzHdAvkyLNm6O0Wj PjwvdHI+TQ13GLLxEN20 CPk8GBC9pZhgXUqs ZLTxO8PjbS9pZyUaAWWr ZGRkOyc+PHRhYmxlIHdp ZHRoPScxMDAlJyBzdHls EJ9jRh0jNOXtEVAm lOutrCGiAhEmy5bqTSQh NBulTQ0sgZzpU3ZkbPW1 OZEqx2c8Zk75Q98xR6Wv dXA+EJQbySJ1oCN3 qR7xJyPjJzT4CXmdC495 XmZzmNOgUowey4umf9ph hMy9DeH9SWTgszFiwJla CDR9c0UgZo35J78h IHdpZHRoPSIxNSUiIHZh eCeuvf6oaY1rCf6+PGNv jLM5pYY5cH4oCgHfGhT0 QDcpD811VvRocORg Rpkhc1ucu0exvXv2UhPf OTGbfrHjjXuyERM9g3Ro Lr60Q3BxdYwnl3KxHwv7 rb33bFRrh8Z0mRD2 Z3SfUCOyuvajpVCbmZwi SP7kAXPdaimjAXOloD0d IXJnJ4w1VjUdNuI3DFqa Z0YdelM0ZQWddJUn EVKyrGLIzB8chxazp6tg cnbiPeNiQUFaWMi6SUx9 QTButIheTbXqQZP0VxS2 LCX8kQGcmI1ueNif vtjwoS8iIrw+MZQ2jODd oBKUPX4tLicbaTJ+PHRk YAK3iGccRCqfTKGgxY0h WYHtP3c0WbStJvL8 NFtlV7QpvjF3AWLqmVFu FEJssRMDpD1bzljpo8vg sfakKdRfFJVzTNo5YHf7 LWFsaWduOiBsZWZ0 ZbT0PWJ0hUYgiS1baJbr xkbqdJ2pWqy+QmlydGgg SJM4WMa9G5CcOaf5YTPs jQgiTO1wlAMhYMmb Rz6qgYdidCfeZJ6gSSMc pyhaw416JkNdd8wvYAAi iPExRXgqRKZ9X57ub5V1 YHCsKINoLQF8bLG8 cU6vjAfkwpbilQUjrHvl jbGhoNiuHFzdHAjmP757 KUZlbNwhMcJsHLp0R9Me Zmk8RGXjcQejHU1g kIVxUUvvJo2vzElomPsb NT6oCGTnvlmjv295EvWn j7saURYqxAUoMDfvAWQ5 R69ys5N5EKCkGIWl DJK8bRW0cA2prMkytqim bGVmdDsgdmVydGljYWwt GVcjN367NTHomXybMhUl jZr8D2ZoUav7VLSw wMaqTB0vsPGmYEdcOi2j pRdzjJpsYG7lWUTqehjr j239IxJpk7azVAPjyBFu VMqjIWK6O38gu3R8 NQKaJLBfDKA4vBY6lM8q bGlnbjogbGVmdDsgdmVy cAmlZGeuZDfxY755AZUi cDsnPlBhdGllbnQg MKfmJPi1L0YrThjceWJ+ OZ43WOWlST64rYMwcWHt z1ocoOq3ItLiDKFeTUD5 bCbeFWogp5UsZUTm J77xoDZtr2U8CQHdqUac xSKiVmVqdYF0nH9zNOml hcpkz0zijcnlFmvds2zc bj70rE03I21rZMju ZHRoPSIzMCUiIHZhbGln pm1jfW2mGh5+PGNvbCB3 wUL3kP0tHBIwJeK7ZBnl G661FtRwyLIuJfph k9fgg5oxzEf2VwR8ZTEv loSjzNhtWVH2b7HyYu93 Z59mDDnbLQTgLCWtVSMx NCBbeNzanr8eiV9z Ii8+MOAxcEG8zQU4sI4a KtHmOeJ6YFrsJ690LwKc mCTzAnclM21dF6MzeES+ SYGkWtr0VKKkyEkk CV1znNSkAFdmUb1nWGM7 XeXyZlAbRObrG5PoJZEc dtfobtsiwZB4JOCsRMEl aX13Nw0oqMqzCIWl jBRVkD4zadraq6dxvyen CqQzXDFcJKi6JLz4IGZw xGtvQxZrMFJ9MrV4MDY1 xYNdnV9fsSbrownr gT0pP8JmZVYvkrfeDm51 xW4gKeDdOnJ2GPesFvx+ O9ZSInoiXP9VH8zQPOzd SzwvdGQ+PHRkIHN0 bZahVMirVHFjiF2yTQRl O9s7DrTqKxE6ETpnI8Gk ENNhptjlRv35wE8kNbRo AdW1WIjcW7FredI2 BZUtrKSzMLscGDQ4I43k n8S8TWWrCQDnENV4xRY9 gI4cpAvmehjdqIWfyMmw dmVydGljYWwtYWxp F779CIVxwUcgQvUeBjR4 DjQ9EqY1F7SjPpy8OSCr qAxyPT0upEZxPCrzXw3n sWoceCtbAN4oREDx modwTHOyqN5uYPErbXIr uEjgWJ1qFSAozfxfy391 UrReHEE4DKEitJWrO7Mu aA7sNySyJYAlKCEo W8MoiIDpPVgqO765XNkh DfA0WJQiobDvZ9QqNQSw hExcGqB7e2V9Xj93WYLT ZWFyczwvdGQ+PHRk ACC7qNmiZVjyIZVwoK5p LKYbM9a7NqXmEuU9NMqy F7NvOKTbgzexJm62pG2h EoPhSgD2DWakN5Li crT1LEJobXOuUKryRDS2 E96yw7Y4RMMdHFWxJMX1 aSU9nS2qvWzurwqimUFl dDsgdmVydGljYWwt LIpdF655CXIegDsdWd5W QRU2S1JyQtm2IENzxHrk DJ6mlMRsBLztLv4xqUyg pRowBZ3cRNQjvlok XKActQ2zWXUhdIUvgMym NR6uJSSdfzisk310OhOb QZK3CJQofBNsS4SaxR8j HhKwRKFhZZBfX5Vu tQNhLExqP299ZSmyViD7 GSLmhdLlB6TiGOKfkNfp GqO7g9N4Ft2COFnpkIA+ JU86wy14P4EsMsnz Ogn6YARrAAY8fDS2uS3d VMYiGKurd5C9hGM0S2Oi liPhti8sa6mcMDOnSUew Q40dbUShc2Z4VEAr cJA2UJYojOwkHvVlqY06 Oyc+TEEosXqbp8NmAvfy d0gyw8cmsZc1GuRcEYAe ltCzjBpjZFJ9p5Zd Mp09K44oJGigBGFyCHKh CXTrIMCpqTjrho6ekA1y Ii8+RUUadJS2eHN7mB1x CkUwEiQ4SZweJ582 DvOpvBAgFzkiz3eqm8gy xZc3QlXmCLTtndAhuYzr CQR9d3NjIm52R1KykUrh n2JsLnm2vx68pJXs m0J5cYU1N2YkBDXzoail qKKmzDdaUJ9yRATjudyy KWXisG7yNHUrH4m6ZpWi AvC3PWpxQ5SdrgF1 RVQoiDPhMJNopNJVsM3v snjhx2szunovHaGwKAHj EPa5MXw4JIIoqKibCtCu IFD0GkZ8GSX3mDDf oU0mjVsyemgcjA7vAym+ XSc8o1lcpXNhQU7vuMB2 JD79NZ99gNFyj0E8jHB6 D1XjZYDoojmvmtoe mMR0STAzNDYezJ93Ud4z qKxaPb5gPEGmEDD8RYKc zUNnK5ThrB0cEjCsZDRz QSAjR8VouFJsHBuc V392VHdwZpV2HVItgqUg Q9MpRFJxeDxfCkT1w1V0 Pa6XGK05PS86DX73sKSh o1I5cDK0F1RlTZOn aolyzgjabMK3LMYfUFDp eJ25Xz3ffOphKs2iRDVt LDQ4VHRbqSLnE1JcbX8f SpWsPFRcIPNbQ8Gx uLTdBWxcT554NRzsWqD0 CUTlpaBiI7JnHFWbyYet ZhM7v0P8Cz8UBz98HE94 GE99gJJaj1G6fCN3 E2JoUKHmrjtpmscagMF6 VGQhNSMgaS40Lp6kgUli Af9tLYMdPKT9KCDgbHOa F3KnqK6bHwFjUXIi BJYpB3AajEXcLBteV872 VBiqQxG9FKVxmwGxM7Lk DPTsbMtaQcB0a7R3Ku6D IRbrgsi0M7MdHgmv dHI+FM65OQUuWK14tWHx nIBwt7fgkIi2WwXdFMWb GSP0cCefIQigh3RsIKTz P61asSEbv4U3CIZe bGx (more content not included)... [facility] Wound Care Noteon 09-16-2023 Wound Care Note [id number][facility] Records [id number] [facility] [id number] #1.00[facility] Outside Records [id number] [facility] Wound Care Note [id number]#1 .00[facility] Coding Summaryon 09-07-2023 Coding Summary HTMLBase 64 EtgruowkHTf8tOa+PGhl YWQ+MX5JMRIiO24bzMOw iL6pA3GNGYdDCcfaABWF VHzTLaSzpfSaMP4peREt ZXJu IC8+CC3rWYPsXubrgGLd n3R9rBN5W57uxe6aYQgn mYV9KONbBkKasjlvy9wp wSn3JRywVrcwUsRo ACDgvW75PTM9eV22Zb64 wUXmrRQek7byuBy6CtSd JJRbWCE5pXuzVJjah2Le KFZoK84puJXkq6S5 IGNvbGxhcHNlOyBlbXB0 eR3kLIpcaynno3kitnll Pre6yj07yPViw9E7lJQ8 U0AebzK2GFErbURx FnjoiSOKdF9lhfyov8kc yrubRwYqWNBcTQu1NEs7 CPCdmDyaPhHmDH13DGR9 UTQqnoMmY7OmYJVt gYgpSjM5c9C6Rs6CL3KB YzdwO1CKXGLQBPcznNY+ IQ52zq73P1YoMogjWfc0 UNPaOIK1sTR1kS1k UZVuVEgbt8A3yPK8N8Oz zuWoox9bu0vmGUIyIArg M87cyCNdj6U6XOZebGM1 CUGfjTacGfVwcX96 Oyc+WRKzyEfbm3OzMjex q1vvi7fkgMl9UkkoKPMr wvAxcIilAEB1c1LfAb4t XUYoaYM7tVK7iS0n BxSlCnL0UTatC095LsAe rRFlCcpjY75fM7FbdMC+ MWMhVvr0EQQvnBuaBT1j W0WgEVQigztgkGCr yAndTT5tVIMmwzyeGONu iE5dSDCsB4f0QvUpLoT5 STdoC7NsDIEgsyyqFw07 sR5wLxXoCkY9JEah Z2XoytM3WYUdmWQfHInb CRA8U67aj9N9LMRkEJTn FJD9qDH0wV3hjXbaxcfn bGVmdDsgdmVydGlj ZDmlQQzpV891TPHhhCaz PkNvZGluZyBEYXRlOiAg MDUvMDQvMjAyNDwvdGQ+ XUOuHPD8lGwiPUGv qPBdLHxjDg2maFqdeAmq ZH6xVOImvxkbATXltH5p HMLdoTWhsFcjOL7zLKXw ggziv343HsDzQKU5 KUIgnNGiU4JkaT1pIoAt HLYyCGYgW2QueIGpOUid C573WGfoKbH6IKHclgWk E7PnPNHtnBbiAcV7 v4V0Af9Qa3BidersF1Bg jYCgPvVwMtiiPSs1H7Hi PjwvdHI+WA41HNUhZP03 LRl1WVU7iKjkJZba LFRsN2QpcM8xUiKmWWLf ZGRkOyc+PHRhYmxlIHdp ZHRoPScxMDAlJyBzdHls FZ8uVg1jHHUpRQRo jPamaZXcKkIrc6nrRUGc SPcpTM9wpEmjX0XmnYY9 VBIaf6t9Qz80K19aA2Uu dXA+DKImlKL1rKD5 lN7oXxGkOxP1ZLdtZ520 BaYyhZIvGytgj4toy8gk fTw5BaY1GLMzxsGlvIsq FXW6f4YdUy28G77k IHdpZHRoPSIxNSUiIHZh yMzzvs1zdC9cSp9+PGNv sCP3rME4uX0oWiArMvX9 UDafW439UlTifPLv Pyees6tos4wnuGs0WbPu BTIhdrMscSpeUOC8x5Sf Ow09F1KvlPujz1DtFwf5 rt87pJPcx0H7mJT5 J6UhXEWixjnwkEWgfUlz KU8kNOGntkpdQKScsO4b FDLiN0x5WoBiJxK2JKaz X2XoipK7DRAyuLZu MBZdeGBDrU3uicnkq0wp ccujRoHdMDNjCIr7ATf3 OQJehAivGeOiZQU3ZvN6 JNZ0hMOkbY5zuTzd qrsqvM0gNnw+YFC1iLUc vFSLLX3hKickaZW+PHRk ALL5oFhqZTsaEOHnpH5e EJUuC4e5JpZsBxQ6 YMniY4SunvD0KTOvmMUb WRVeuMLIbV4mvtroi3ct tmakYhTuYROcZSz7YVo6 LWFsaWduOiBsZWZ0 SeE8ZCO0hKTykD3qeUtx jssljQ7lCqq+QmlydGgg OFQ3HFq5J9HoHmt9YBTw aAqiTF3brTDyUAok Fj4hqGzwjAhrGS1jZFMw bhzve284VdGpc7gcNEOt bYBkEPrxSVI4Y93zu8D1 HCLkZOZeJIE2hHP0 wT0imGnppiuznMKclXzd waTriTroSHpkZXboJ884 EAGpiOaeXhTsQNo3Z4Jm Oso1XDHsgFptRP2z xRSsSDycEj0apEtvnZvh CA8sYGYlnjwkl814TaEh x4krTPGwbEExPTbrHIR6 N23jp7V5HYLaMBQg ZOU1nWC7bM2mgHkdgzpp bGVmdDsgdmVydGljYWwt YCchL527AKSmvWqiDiZz kUb7S3VeBzx1NGLc qCwaPY2lvYPbVBxzYn8h zHjreFhyRZ6vFBFzrjel f263YtXvg0prLUUkpPUn DMvjJWQ4G02hw9C0 YBZvFALvRYW9wOD3dX2n bGlnbjogbGVmdDsgdmVy oVwkFVcbCTdjE053KBEp cDsnPlBhdGllbnQg FOenVWh1U9GiUzcojIV+ QY44DDTnNF19zLUlqQTh z2ylnHp6EoZgGKEjDDL0 yDzmXNflo6XlWTWz N05vyESsh0M7AOYvvAxn uSCdAdZgjKQ1dU9hBHpi cxcum7tzfcvmBrlmn5my qc00zK58M86hMDkh ZHRoPSIzMCUiIHZhbGln qt2quJ0hBq8+PGNvbCB3 jWA1dA7qAVLuPjS9JJwk E852VrRirBUzRmll a4alh0tldYv2MdS0YKUi rvGxhWhpNVM9d6MeRv26 N46oEYehKMLzHNHrESKf DMEktVkxnf4vaY6l Ii8+CFPwgXK9vSV8jL9s OmPjJhQ0FQmeV986GjSz aHAaKntxB11hG7NyrXK+ WASpPui5EQItlCtt TM1nlELgOKwgSz2qKFU8 MnOlOsGjJTrmK9AkCWXv czpixbpxiSF4FFNsASXi rC01Uz2ksFexVCUh oBUBxN9kfgxfo9hmbnzx JpUnZAZqXSx8NDx2ADZv tJrqQxXkLFB7ShI5SMC0 rUQlfM7znFicvezf sH2fZ7TbZKInqbbzTa81 qE8yBaCcQmB8XBjwEtq+ M5MMFarnMM2TM7rEKNee SzwvdGQ+PHRkIHN0 hTpoYOhaDBRpdX6eIUZe X7n3NrKvYeZ2AGpzT9Pq CHSjgjjuOs10wF7rWpKp OjY0WBdwR4HtrcF4 XEPuzHCiAEalCTD9B32t y5P7LUTfLJZdCRA8vNY8 qB3xnGqouszknNGkdWcw dmVydGljYWwtYWxp Q497CDDjaJmiKtFcCbJ1 PqM5KcN1T1QkXsc8LVFv iFxwKR9zwQUmTUmfMl0n gCnoiFwmTF0eRKFa nrzsQJEzuQ0zFWNroPIy pGqeIG2uHHJoefmfp270 JvRjOKD3ZKCzsKMxZ0Ui cR8xSvMsHSPrUCTb D0SlzJGtGGscO256PBeb PyD3QYNquuBxC2CnUAMw uKxqZxF4m3I8Nv23HXNA ZWFyczwvdGQ+PHRk GSH0zLjfXErcWPCnwM5p XQErT8b3IvKeSeE7NPge B0CuFARlgangCf70bH6j LsEwStW2GXpqP1Ys lqU7TBChsRPdEMcgHIR6 W62ww0Y7WUYbLSAjJTZ1 aQM1iA9vvMjxjvhgmTEp dDsgdmVydGljYWwt NKhaC888GRIvfOlvTj1G GUP1G1NwGsm2OTFcuPxs KM3nlHOzAAnvPp4ssNth cMnzCE4xFJBiklfs XYCpcZ9bMUAgbHPhyHgf IF7xAPDkmifwo851TbFb PCZ9LUJgyUXeO4KqqU9q MxFtXPTrUCCjS9Ry sPBrFUtfG196VJyqNlC7 LMGisjKrS4BmCQYpnWkc YzO3v9O4Lj1BTTxayCC+ EB30yq28S5AgGtwx Yln7DNWxMMD7iML1tW0m UZVxUZsup0X8jPD2R3Yl stRgrx7dk3ehTVXlASmk R53azFVrr8B2DQLq mKY7YBDdjQxzCpInzH11 Oyc+AVIjcAqxe1NgNaes g6upl2wiiXz4JkTqBAOz feWhoBrkTVA7d0Ur On50L77hFPyiMFDjTRCk VKOpEAUhwBjcdv6ulQ8e Ii8+PLCznIX2dVO9wN7t EvXrUfS9OXxaE242 XeGxnDZaEbhfn7adl5pd eJu3RlOoSPIhpqHfqPej YBX0z0ThIg67T7DyiCeu p6CoMtr8yr46zHGa a4E3gCM7Y6YhRFPhutrb vAPntRjhTE6eJMPiycro SXMnqK5tSBMlL4g6OtBt OxX9BQzpA1FsjsF4 DRGoiNPtBBCyoJVFcG5r ttkvd6uyrqzvZeJuJQPv LZl3UPe8EAXcrWmiEwTl BNY2NhT2JQD0bMGu qH4sxIehjbjoaE7fVct+ KLs1b5aoyKYnOO2eeIU5 ND78JI73mDGvs5H2lYD0 M1RmMLPiprfpdolk nPR6VWZzNCYazG25Co7o nTcfQa1gPCTjFBR7SELb tCRwG2HeoT3dHiTeGXBi TBRlU9HwnVGmLOnd Y387COutGnL2DJJlpkZs B2KlKXVyaLwaMcO7h7U0 Wb0NPL26YJ01PF37jMZi s3E6sMZ0E2EhYUIa mzuswquskBM4ZENaJMTo nK37Oj8afNkiUd4hXALd ZHT6FJVtgPMpM0HfsA5t JrEwRKJkCPFqN5Uk bMWoNNylZ559XSkhPcK5 GKXagcYmK6EgYRYqfOgk QhO7i6G4Dw4HMl18NM44 RT79dFZfi5K7pKW0 P7WaDMHuluhwinkybDZ1 IBLpAAMeqZ87Ax5apFbi Yg3oKJWaJWK0XTDlgWXz O7HjxY6aNsMrGINz JYMmZ7VyqKAxHKoqE381 LUocNeP5FDZypzIyU0Aj TMHttMzoQuG1x1Z6Jl2N QHqzajv3P2GyReey dHI+AU09UQJvRR32fUKw zHLyl2kwnUi5WvGcIIPo PAL0fRplKPdgj6PhYUEl O08jcPNyg2H9RHGw bGx (more content not included)... [facility] Coding Summaryon 09-03-2023 Coding Summary HTMLBase 64 VrsghxpxUYs8iFf+PGhl YWQ+ZE3WGDEqJ05fbZPw eC9vD6EYALpODdxuCQJP IJcRFkRrytMiWG4hbQVj ZXJu IC8+HM1vMHOiAlivqSBy k8X5vUP5J15hnb9rPCvz pWY7GDQjBlJdzfqjd9tg jIf8RMarOsvgYrUk VVMzsH71ZKM6sU57Lr27 hBTahTUtp4eutDu9UkAr WDXyRZJ2vSzdTErca3Ov RVYoU59unXOtb9R9 IGNvbGxhcHNlOyBlbXB0 xY4zBHwdakqiu4gelqpz Bvu3ad56rGDwv9U6vLO8 B5KbfeJ5NAOehUQh XrsmwNYTxN1inmvvd0io dpkrFyQzTOVkKDp8OOp8 IQXovUeeCdKsPN16RLR7 SIMwyrRrI2WwWGAs sOiuDfA9r5J3Lr6YC0NR YoxiR3KGOQSGYQshoED+ AY35nx19D0DmJtutAvh4 XDVgFQS8aYD8mV6w UJMfBWkks7L1cJC6Q4Wc koCfbb1zl9wwZBLrVYag K46zuNSgp5R3MLPnnBI1 RREznCxxOlBvkW14 Oyc+AZDciIuur8DxGwhb y1pnd3rjoLx0PtreEPIk unCweOikQVS8h9ZtQc0t TPLkoJT3fTO2hP1t OeCxGfZ6MLxtL024PaQr sYIaAacjZ33wM5RyeGM+ LVGxMnj6IWGfqWepVO5b S3AfPEPafyzkxTQo zZhfWR8aHVUfyfrkNDDl sD5jZWBqU6r5HpAtWcZ2 BFrwL4LnXHDvjfwkUj92 lG8iOxSfLbS8DRdt U1DrssB9SBGqaXMuDVvc ITV2C19qb0M8TVIpHUCu FWJ4tKP9oS5xyNexnjbf bGVmdDsgdmVydGlj OEkwEFhnT711JTQhiXps PkNvZGluZyBEYXRlOiAg MDQvMzAvMjAyNDwvdGQ+ LMJjXIL4iYknPLNr tIXjDCysBq5pfGnglEgc FM8kTUCzxrptHSAepF7g HNEamRQgcPltEA4uATZh kgnne174TnYoFGQ1 RCFwlVNhC6PozA3sAnHc RJZfJSBlS3DjrCVkODtk R490FWltXtJ3LZUpamQs D8IiRUQxvElhCxA1 r3P6Td2Su3UkkgzhM8Sm zXSsTlBwRulpVTq5D5Zz PjwvdHI+CC38QFNiOT81 ITl4FQQ4aBfsTRfn WIEeH7BdgC0pDiFyZRYw ZGRkOyc+PHRhYmxlIHdp ZHRoPScxMDAlJyBzdHls XL5uPb0bBGQrWBEz yAmuzYCjAcGbj5cjMRTk LQytCM9csBmeC5JgpXA5 DMUkg7k5Et11E33sU5Gz dXA+UNXulQJ0jFM5 wC5pHmYeXlB7UZshD134 EsQshYErIolmq7nfj5cn sJt8YcJ7XARdaqUbfFwp LEF5v3DdRx32Q20p IHdpZHRoPSIxNSUiIHZh pCqqed8osL4iEp0+PGNv dMC3sVG8mC6nCbPvVzE9 KCreT359NuZjoTGo Vkkxa9ayq2zcuDv9HrTx ZHZwwfRdvImuVWW9q4Zq Cv08Y9LubIlhi9HlZoi7 kd66wGQxj7L3vKX9 H1TyVYYvbnqyoTHlsLht HZ0mGCYymodoEOJyhE8d TKAyQ8n5VxVfHvW0QUai W3EnqpW9WSJziLFk FWZcmNGPbG4phipwr2xq jqqcVfEtSEMrHJb1FGk0 EFRhzWhdSuEfSTC4ZbQ2 OIA3tUKjsI1fvUhb xagctT8oAdk+REQ1cSZy xBFFOP8jExczoKB+PHRk LRZ1dGiyIFafYVQpsS5y SDEhS2o3BpBiBnN0 UZbjL9EtkkL5HUYwxXKm KYUsbUWWzQ9vixkgc2oo qhrjUwBdRWWrIMd9NEh5 LWFsaWduOiBsZWZ0 QrI2UTB6jNOugJ6jtMlu qghybM4hCks+QmlydGgg VVC1EGl4C7HzSvf9LUXm qByuDX3abVWtWHqs Dz4jrLwvtLltBW8mPSKo zcndl520VaWga0hjPHLl eHKgIBizIJG1Q59aq0V4 IYFwRUKoBJR0qMI8 nQ0kvKylmynxdUZldBan mnWtmXtkSGeiJUbzQ280 BGSagRepMgAzPDe8N1Cg Yfq1GVFcvVajKS9j tOKgOZpnIx9vsUwiwWgb YR0pIRGpsftmd050DwQo g2voHPRkqSOgPDpsRSL4 R87qw9H2FPTxBAWa HGG5kBT9eC4uoIlguqko bGVmdDsgdmVydGljYWwt ABrsW624ULPvtLnjDzSg rQg2M2NbPvu4BFTj vKjiAY7ofHJoHSamJi8k kXxmbDhbAX6aKZVdketu w080BlQoh5kjOWFvvNHv BYcpCNZ1P09ct1P2 CCLeFLPzLVA5xUP4mC3w bGlnbjogbGVmdDsgdmVy vFyjNPkyQItuD912JBJy cDsnPlBhdGllbnQg IWcuTVb7V4EkYkkgoOM+ DU98YDDpIB83fSFyeHOe p4zpsGn2UiSaIIGdUTJ8 cDxpPSraw6HhGMTp Q04yaQRss8Q3GBLnkUns jKVvHyZnrRA6gT6dXHlj gfyls4mguzucXojqz3gx ad73wU35W25pLQre ZHRoPSIzMCUiIHZhbGln ot7fcR0sUu0+PGNvbCB3 iYW0uQ7jKFZeBuM0VRxp O278LiRcuUNoShnk a8uzt0rveBz8DiZ6XEOj ljDyfTqcSFC2u2MvAt41 V38rANoeDNScFRJzUTAw GUDrxVjcll9axP4y Ii8+LTPzwBL6aRQ9vX2x WaYyWiG4ALmyI882ZhFt nHFrRqboA72wM0LchUX+ IYRzFal9ZXYvdPkx PP8xuNJhRWtjCx1lVSG0 NgNlNpIoCLmsB7PaCLQg ffwubdpxuOF9DIDpQDEj hB81Em0niNeuEJFu xKFOlS8vqsvhs8rzidqa QeTuDZAmVVd1IMb8YSMj yAswJeGuSHR0QlA8OKV2 xKTpdG9bsDfcwvie jX9rD5XaKDLlbjykRc81 uO3oWuWuPmG0JAkfCqf+ W0OFFkdsBC9PQ7aHKSqf SzwvdGQ+PHRkIHN0 dCgeJExoOYWfwZ0pHQVj F7g8RhKgLkT4CJmeQ1Ky UWAwodhfDu68mA8qJrPg NmM9SIskP9ZulhE5 ARMkuYDfWTcdFFC0D22h w2J2BOYlAVAyYYM2wRZ8 dU3ttKplmarwrHCfyWgj dmVydGljYWwtYWxp R273YFThnQzkEkLiTmK4 OqH3FzU0X5JqWxo2KMTi oVrsCD9pcMWuFKphGq2l pCsitRvvBN7oCRDg jxqbPWKflQ1bHFLodLAq aCirRC9xDCPkahzgw622 WhJmYMD6AHMwkSRsU7Se jL2oBeWmNGBmESCy W6WmuRCiHUwwB133AGjt FnW5WZNmbnZkM7KxVBLb mPaqQuT5v7G8Np30KZXF ZWFyczwvdGQ+PHRk WWU9kCwgFMdeOSRmoR1u CZFyT2l1MdWdFrH1JRdo N4WtHBJiwsoyVz15nC6h UoKpBtH6TPqvV3Qt efB2TTKmoHZcFGqwYPO7 E97bu6T6XLPeQVNgVLM8 mII4zB0guEjkypqfuKNh dDsgdmVydGljYWwt PCzmJ720FMEcfHedMv6J THP9K7VsMhs5BZHupBbf FX9sbMTkVEuaBn0anDgw uBsoUD3fUVPeutxq NDZjwO4mVFHouKQlfXbz EH1mFKRhzkxsr753YxPf FYV9CEZmlEHbE9OfvK9l SyEbFZXyEHXbM5Hj pIYfWQruQ204SGbwApU6 LJGownBcW9LdANHpyXbb HgF2y9Q0Kq6BPCzbwZB+ AO52mr63J1RjTgtb Zvo0UZHrZNX7fLZ8sZ2r GOYzDUxuu5G1tUS3O8Ua liQptg4xw0xpOQIhXHoj C08anWDjw5L4VBCp lYH9LONyfVoeMpSepJ83 Oyc+VVUmzWrxw3JyTjwn t3pvx1mdoEc5VfCkYPHu ctOccOjsMKB7i6Fr Yr54D41gRUanOUEcNIKd YCMvRJFxhUtjgc7irY3v Ii8+RUXfbEX7eSL0lY9s OvHuDtP2FDbkN733 OuKxrVPbIvsst3gbc2zx hUr1BuMqOUPvcuIxsPdh ATQ9g7CxEp36O0TwuKey e4WuKly9kt31gRPg w0J0kXR7G4NaEXKwmkti cYHfzYfrSA0uCXAnpdnz RWHiaA9iVSCzN9e0ReBq MmU9KLixI5PjcsP1 EQFwdZUaXNGqdSICyC1d udrhs1rphhcdXsVfPWGc SIx1PNz1PRYjbLhdToOe VYZ7HmM6PKU8fUSo lL5acCvbnxjigQ9kEhv+ FJv5d9cysJKmBR5iyMB7 HR94LQ84bBHkj6P8aYS0 B7WsLIGbgnrziscv oOG4VYBrGLYqxA31Am7o cTykYl9cEGLbQJE0YQDk zTOaJ4RjvK4aWwKlIHTj IEBuW3QxaYQsEScp X156EQoyMqS2KFUaguDc E9PrQQCilSmfCuH2j8O2 Nr2VOY94QF80NJ70vLFc h8A7zQV3Q6TtDERz ixejbevraLE9BNOuRUYx qR08Gx6qxLgyPj5gLHJu HYT7TQKwoNCdN5NicB2n AzIjCYNiXIGhM1Fg tFQlERieR787MJpbMeX3 SNVvmlGtE5MiLLBdsUbn XaW3s3V2Mc6KXw29GI33 XL96hAInz6D7bNM6 G9DpLKKqynxwqolfnOE6 SJUqHOSkjC01Bs7nlVgr Vc9hQGEcSLL2STNalENz O5LkxS8kVpEyMZHw DIYdE9YnmCNpNOvuC258 DDflRkC5CEGupjUpN8Aq QLMmzNspMzR1a6B6Hm0V IAvssgy9C2JsXepo dHI+VC11HJAgNT61fDUp aONnz8ducZw9PnDnDCQk AQG5dWfnKQqke4VkQOIe F23ytTOwz8S5WCYi bGx (more content not included)... [facility] Wound Care Noteon 09-02-2023 Wound Care Note [id number]#1. 00OTGTIFF [facility] Coding Summaryon 08-30-2023 Coding Summary HTMLBase 64 MolkzkzkKAi8wUk+PGhl YWQ+UK6HEQNtC21ebEKx uS3oM7MHTHtGPdmeMMTZ DHoSPuLaimHvDZ7blXVd ZXJu IC8+TF4yWVYpRuhmaPAp d6Y7zSH7B22nkx1uUCoj hCA2VEHnPfEfwayrr4zn uHm9YFemXcgmXiOw VMFjzG07SJN1kU66Ut07 tUZruQGgy5zmxDt0BlOc SLNqFMI7cJuaIQnyx0Ry OVJjN46inZQex2V6 IGNvbGxhcHNlOyBlbXB0 pJ4eBBuyjiwft2vfwfzx Mhz1ar38eSInq8Z7nBS8 L0AmquA5MEBryCCg OrudwJEBcZ7kukomj3va leovYfWjHLVcJCj1KRs3 GXEaoUlnMbEbBS71QXN3 JYYmvjTnF9OgKHVn kZbgKuN8p8H8Zp0YA3KF HpxsZ4NQJCAQKQnewHO+ ZO74vd31F4QgStgeLry2 SUWoVYV9gWM8sE0c FOSfBIgid5H7dNX3A4Uw mfDvvv8ar5dqMFGcGWqm Q23adSTjn3K3MMDdjQO1 JIWzzPehIcUevR82 Oyc+AGVzjRazk0TzQprq y2jvo2ivxEs9XbryNHRs fdZyvPtdGPT5m6OxEa8a TYSzeSN9aEU8zH5m DxQvTnN0GGyxB766StBw zRRfUmmnP15tZ9XvkXZ+ NNIsIjm1RZDfcAnjXH8u C1LsPKBtizguiMWh aBjqHS2eMERwijchUPXf iJ0jPYDfZ1h5KcNnNzV1 PJgbS4ZyHPGequafFx15 tU8vVzNzOzG8GGkb W6QxdpY2AQOniHEnGCfk QUU0Z85kl5T4DVZsECHi RYC0lRX0tG1bbMnyxmss bGVmdDsgdmVydGlj VDljNPcyG471SIEcvZin PkNvZGluZyBEYXRlOiAg MDQvMjYvMjAyNDwvdGQ+ LGBeNPJ1cRiiGHLz cIXnFXhwQk1dfVqprWwx XJ2pEBJywsxjOVAffJ0p DGKciALuwIjcYY9xCWQx yygjm187OmIrODO8 HVHjlRSmG3AoyX8wTwZj YGGjTKCtC6TefWMePAap Y671HIptFkF8QWQwguTn N1ZpUULehPoeRfA0 a2W3Lt2Lk1PqwmjvL2Sr gUWzGtRrBfljESy5T1Xt PjwvdHI+FE19UZKrJH64 HBw2LRT6cHjsYTos XGLtI7FntA7cRoQsQGRj ZGRkOyc+PHRhYmxlIHdp ZHRoPScxMDAlJyBzdHls OH6fHx2jITLxKGDb cBehwMGjEvSsb4bqVAUm BJsvUJ6ycVnpF6SiwIS8 LYMbo7u3Tr54H77xG5Tz dXA+JBKywSJ9pLN2 tO5vFeTkInL7WXnjB281 ZuGhgAQgZrflq3krf5dx qCq7WtW1QUBntdSkyGnf XGD7o0LdGa28W69k IHdpZHRoPSIxNSUiIHZh gExldk4kpV0vZi3+PGNv rBT7yEW5nT4gGyImBxB2 MWkuJ113XrAlpGDj Rpmvw4abv5zzlUn8LcHx EDWkhdMhlYioTVF8p5Yq Cp92F6AofDmmu6DiFly4 bq12lSZch7U0lKA4 A6NsWYEtlzgzfFEtjLjf BR2aMYQccudxLSLuxA1q KLXkN6a8JlNoRnJ5RRvv Z4NnuhB0WIWpqZYg GZAgbNWQlW5rfirzg1kv tucgCjJxMKHwVZc5XHa7 LGCelUvaTmZtLIU2IvF6 TZR1fQPavP5zzTim rgsdqM0mOoy+QEO9wCVx eMENIR0zWutvyTC+PHRk YMK2aPolFGihWMGgeN7q GLGjS6w8ZfGhHbL6 KTxhH8RkboX1WBAnsPZz TSCeoZVLlE1lqlrfd4ya lzynIkKrYWHxEHn2KUi9 LWFsaWduOiBsZWZ0 VhV1QIP5nKZoiH6gqKrx eaecrL7gCpi+QmlydGgg WSE4NFc7G7BvUpy9SMPa fYtfVB0ixFUyEPjl Sz5wuIibvKeiKJ4mQXJt grutv552HgDfr3nzBNAd hQJhUJedEMN7F91um3G7 XVPyTUWwKIN3aOO7 lU1fxWvqqpcuzUFcvYxb ecHmiPhpFKipHQorB026 XAOdoUjfSpJhFJb6M3Xf Jah7DQNsmVqfGS0x wMUqOIhzUs5rnGkuxYkp UM6dHHEjhojam357SuDx m7prZGZmrXZgKMvvRNX2 P99sx0L7PKUtNAMq XDM0bFE4jT7xtNcfbmou bGVmdDsgdmVydGljYWwt HQjsK574TPGxhClmEuBq oIo0M7AyAts0YYBa uEwgVE7diNBeQToqWk1y eQkoxGheQN7mNUQaqjws f267EsKvz3ozBUFyoMNk JBowVIP7Q60em4Z5 NOAeKCWmGVL5oGJ7oA7v bGlnbjogbGVmdDsgdmVy pJivAGxnFJhtA884AJAd cDsnPlBhdGllbnQg HHugHFm6A1VzUzcorKD+ PE67VFByRW26pFQklHNk a1jlpKx9UyBhZYVxVFU8 wZhsOLtov4GqNYPl R86mkNNsm0A3ZKYauBid kSGxYtJbeOR9uZ4hEMkw mdblu5sgwytrOvrcj4ze zz05gW78I16zYBbr ZHRoPSIzMCUiIHZhbGln sl1cdF9nVf1+PGNvbCB3 lJQ1hI7hIYEjJbS2UMvy H160JzFlnBXhHdfw v8ijj8bvuRp8DcK1JSXn hbNfoNklNMA3j6HdIl00 X54cYApvAPAvIYNpMEXm VZPqrYvbgj2lsR3u Ii8+WJPnnZY8nET8nB1g NcOhGiN9UYvxD029TqPm xQNgAyumT46fU8BhgJX+ OQZyKrm9GJMnwUwc YF1ddUSwKSgoYx1tANN5 UdAjPgCmHLifB2RxDLEw ayxordrcoKP3USXbJUOn nT98Hi2wfWyvJQNq pKCHvD1jidamq5fetoqc CgOkNYVxFSc2RRo0LCGm cDhhJvPjVRE9WjR4VRT9 gBGyxE8vgPmgzbvm iQ4fA1DlRNEdkdlsBt60 hT0zSlAtHtX5DQveQzl+ N5GHDeqzZS6CB3fFXFbf SzwvdGQ+PHRkIHN0 bCvwACsbRBTmoR0gZRVx E7k5JjUtAeZ6EUkgF8Wm VVUzygljUk31yT5sDjDd TnU1EWekK9QfrcI7 YUDclZZeLJcxLBI6W81s b5E1HXGqPNAkXVM6aCS5 xO2weDqwqmkueBKwxQip dmVydGljYWwtYWxp X431NLIwzMnyLmNoCiZ7 HhC1VpB6Z5SvKss5IHJp uKnlDN3ucVKmXKmbYk3c pAlghFelMM6sNUUg xofmDQWzvU6jANMbuYRy tUyaHG6oWBJcvvwtx033 OwJgZJO5EUNhsFJdN6Bb aH1tLqMuSMVwGDDi F7BttYAvPRuoV929MGeo ZyO0SFNusaWmQ5QeQPAg ePbhCqZ1x0A2Kv56BEOZ ZWFyczwvdGQ+PHRk OPR8oSvwGSjnPECtrW4j PKWzJ6x2OzYsTjD5NDfm A9IzBVXiwyykKt50sV4i GiTaToW0HGcfN2Qz bcQ2RYJhqGZgNFidENV2 Y57wb0C5WNQwHITaFMN0 aEY6tG8ljYxybookdGEf dDsgdmVydGljYWwt MHqkG616IWHvvPorYw8D FFL4I8WtOmr4IYYfsXcy PW7vgOYgSPavEd8kuQsk lBnxFS7kBTGleoau JRJnzP9xEFIhgUYxcBue CW0nTSPiwwddl617SpTm TVM7RLDazDHeI2ZqbN1o HlAzJUBvPRDjP2Jk vMXuTEcqB981FEbuTvH6 SGLoiuGjX6DnZIDhlHpx SjO3v1B9Gn2VQAonnCR+ JM83cq62Q8TyLqzr Foe3HQDkVLN1fCY7qC9d YAVbLYfgy3G1lFS5K0Fs qxSlyr4xf3ydPLLkNXwv E22yjCKqz8M0CUIb lNB2ZSNvnIzyZpUqkC75 Oyc+OBOzdDdsl8FvPshv x2hsi9vuwWp7ZqIsCMZz saOgkCpfDGK1x6Df Qe22A78qOShbCKKjRGNx IZBpJUPesJhdzg6reQ0g Ii8+CTZlvYG6bBR6cE0k XqMcAfN0MBvrF459 UbMvyRSdGpxms7ihe0kj wRl8IiMgDCYjihUmlKwg YAS6m2MqGe39R1XgyMug s6EfYja3ud08fAVu w5S0pBK1Z6LoKBXhqfox zHLebHejIE5yMLFmulvh BYGukA7qCBGkR5f2WqHk NhH4MRrpS0GnugN9 KGHtpMOaUECbmDISgB1j hzyaq8zpdxrcVkXjEUGr SNa3ZAl0SOAfrQmsZtEs KDN6DpX9UJZ2rQBu wO4mvJcrsfeukE6iQls+ MIz6z9xwrYHkCJ5wxZB7 XK84EB80wYRlp0A6tNI1 L8YwOEXfsloisfop uWD5CEPeSLOtiA74Kx4j dZleFi4sIYBiQUS7MNZg aFDgH7RpgC4iIqPfXAFg DLYeT1CzwXZoWAon U865OFdcFdQ1VCTmphEb H2ZdBYNxiJhiYzB3s1M0 Xl5PVA82HX97VK47sNDo l0O7nSY3M6LxECFd dcyxpczzgYC3MGMaKJQv gD81Mc4pgKtxTj6bJDYt RLY7CZUraTChV4IhzR3t SiAaCBRpKXIqS0Zh lOMfLLdkM891KIrkWlH6 EXFkziMwK3MnZUXmkAvj OdQ8w3F9Ar9QGp95GJ06 TP42cMTra6K0wBQ9 X2YgAHZdnyiifnhxnXI8 OXUhAZMfcV15Qd1mlVlb Nk7lLFSrEIB0CTNhnLIt I0LgdC3nQpDrMSPd NAWuT0SbgFHvMBrcL697 RRreCfP8QDFzsoPnU2Gu CUTkmGcsCbD3o0N2Ux8D QJvyyjv7R3ZgJpct dHI+PI30SGUcMZ36fPUf zGIdh2ezlEh7EgYzDJPo WKW7jMrrRVwco9XvJOYz O84ecARan2Y9MGLz bGx (more content not included)... [facility] Coding Summary HTMLBase 64 LavjaoebKMb4fZp+PGhl YWQ+FA2IWFLkN33qhYSi bE0jA8OPAMxBKwigETUW WVqHVbHwvqSySL8icLWi ZXJu IC8+DU4vHBBzLwqhhOUl b9X3gTD0S60vgs0zKUuc qWF0YRWuEcBiadsxz8lt fLc3CAfmQsquFbJv BYOiaA71XXV5qA64Ba57 bQIglRAvk4agkDj1TsCu JZMhQRE5mFbaEXmii0Oy IREtB69cqSCaq1P7 IGNvbGxhcHNlOyBlbXB0 kT6rCSqevlxth4tyghov Dgg6wt45xZRmo2M9fVS0 J8XuzpW0DNXetTDh KsdurJQHaR4xzwfwp2gn dkneQeIiHNDhUOj7KCm7 GKNqpVypCzHnZE24GKB5 XPZeakOaZ4DbIBMb aJlmBpB4k9H3Vw2MM5AU RvwfE8JXKQJRULyjeXU+ TF28uo17A0IyGsydIji3 FHKrJAK7oFD0cQ0p PDAzEUvns9Q3cYG5M8Xv ihDsvz6xg4dlXOTyQYnf T21roLPte6N4YAKrvTN0 ZNXhcMgvZwCjpQ64 Oyc+RPCjgPrwl4BjEofm e3sfb4zbeBe0MaqnBFIc ozErrMheJYD2k1KnTx6w EVMazEW2pRA8bC1l JaEcLjH5KCunW578OeCg fWDnDhphW58dC4PwpER+ FMPtYri2CRMhrQxaRV9i K5TyIOKqkrtlrYOf cDbqLF9uIQWsvngvMMLy pX1cBBHhG9e5SfDlYhW3 FStjV8HgWKDgsnuhJh95 oO7dGwImSwQ8NAxx Z5OrqnP3DOTroBPiPXkm HKE3Z64sv8Y4LUPeJNOh WQO0jBQ4gX0fwGifwsla bGVmdDsgdmVydGlj BSgpKGssC423YNNtjCqo PkNvZGluZyBEYXRlOiAg MDQvMjYvMjAyNDwvdGQ+ HZQcUID2cUuhILGx yOQiOOxwYd3bdZtgyEef DU0pJAVpsbsrSNIgyP5s XIEndNYlgWnrZU6yESMw pjsnu281UzLrADI0 OXWnkAJmB5VpqP6pVeYi EWOnCABtL9EtyFXyLWfi S656ECywEsC3GBDiptEy H1VhORJbqJwfLlC3 n8W4Jc4Sq5GbgekyV5Em aEYnWkSqWsuqPJk1R5Yr PjwvdHI+KH41VXHiSI30 RDs1NVI4oZofSNxm JCUwA9QzmX2cUmDzPZPr ZGRkOyc+PHRhYmxlIHdp ZHRoPScxMDAlJyBzdHls XD9tNn8fPOMxOFSw pGysdCZyBjRen9xcUKJy KQlvQL5uaCmaO5CjbLO8 UBJsf2e2Vj75B51vS3Az dXA+RCIroKF6dVW4 sF8oZqBvIqZ2VEvrK175 SbLehJEgJwdum4dzn0st iHw0JbZ8QZQixoAmvBqi MHA7f1RyZz52E96u IHdpZHRoPSIxNSUiIHZh xExtsn0edA4eBd1+PGNv fMK6zGN3sK9iUsRkObJ7 GMqzM931ApTalTJk Dfptw2ckf5txsJs1JiLc IHAcupWqcSrrRPH6v9Ho Vz91M8PhnHjsn1HoQvl2 kj14qVMsu7A3gPC4 A5LhVTXpadlspCKaeGzh KJ4nBJZvstxhUHSazH1a ZVIdG2c8TzDoEdK9ROjx B0QavyN8WJBhrBUw HEXcvNLGmB0szybds7mg fiquVzPkBISzWCm2KDq4 HBBybUtvYbTvDRB5KhF0 ZCU4sPRdjE5fgBpx qfkqjK1dGgl+MDI7fNPx iFQHKU7xVzkclWH+PHRk BOD1tEdtFTfuRPJjeL2u EEXgQ7l3DpQdXlD7 LBjgP7SiyxN3ESXtgHLg EZJsvQNNxC3fschih0qe rmccNcXcKZOrYUl9ADd2 LWFsaWduOiBsZWZ0 XeN8UVS9oVEaiK2miVtg bbxhiW8nVlm+QmlydGgg IPV3FXj3S2DgLyu3CBYg oWzhHS1reEHzBTog Db2chKessOclIO2nVPMq jnhkm411EsUnr1rqOSFj vCGoILawTZE4X37ds8D3 RLWoWUNbOYD6yHI5 pU0euSwtscvplYOcrEel yxMsaEfiKOgrNWdwO841 GURoaYzzQjAlFNl3Q7Fb Iwd7JENmdTggOI3x hNMxZAdmWa8lkGaddRpe XJ8bPQSzuscqc324XgXe q7jnGCZnlWQdQKcjQPO1 K72at9E6PISxQISu HRF7kOK2iG6giVvykbzp bGVmdDsgdmVydGljYWwt RJzoX552TDVjmEgbZkNm lTr0H2VlXlr1DGMk xFziYB7isYVxJPclBa4z tDvlwHsuVU7mZOQdgzui i402KtRtu9dkQAFwpZBo ASzjKRT1B87if7G3 OEYvLZPkXEP2lLG8zV2h bGlnbjogbGVmdDsgdmVy bUdpTPynVBqrU847YFSa cDsnPlBhdGllbnQg PHjcQTf9H4KcYzpjlTZ+ LG53GGRnGW47xWLxzETi i7jlwPo1EmIkCJDnVNG5 hRtkETswu6AqAYRy U68vlADcr3E4NWLmgBro zWYpCtJhfDG9tN0iBWii vcgso3utlofwSvxcb3on gk00wJ13M73sKQro ZHRoPSIzMCUiIHZhbGln th4sbI3lOu2+PGNvbCB3 qKU9qM4mSFHqUyE1GYvz W274PrPiwYKiHbvw e6leu7yiiPy2FfB2YEPp seBykYdbXSY6z1LaBc27 C48gEPjcPLQyNPOoZPMa FCSogXduvn8glM9n Ii8+GXLiaPC6oGT5tP1q TfJqSrJ8WTuuJ324ZzMa iIGwZvggV51zB2KbyWQ+ HTZxIoj8NKYjpYpb CR0edQWpFBvqYh0kYEN6 XyJmEbKvNRerN9FaNGWx ioukfxnqkPW0UGXmMCDc rL96Ls7faJpwSPBr aLSEyD0xylmgx0kwjslz HcXjPOAoHLg0XUt4KUOd nQngJiVcZUD9VdZ5URM2 zSAhxP8ijCzvrrmt vW5rW1ZkYMLmlvcrAl20 zF6tEpHhWeE4XBdtHcm+ K7OEOxxzWM1GA1jCCGbu SzwvdGQ+PHRkIHN0 cKicARllGEXxaM3sXFXp D6w8NvJfCwU4IQujM9Iq CFHvsumrDm39oE7vVjPe BcY3ZJxbI8KgswH4 ESLbbJVyRPmbKMH5V15t c1I7CNLpFTNfEPD5yBX0 gN6edMtencxylQBvuKgf dmVydGljYWwtYWxp X993ZKLuhCjxHgAoKoG5 VqB0YjL2Q0AkPrl2MUZg wRieQZ2owXUuBBpkPy3v uNwruEubNT6mTFNd argqNREphR3wEXMnrKZe uHizPO3hSQIbrifwe200 YuIzOGF1IECheIYgL7Uu dZ6fEmWqMHNxZWIz F1AakGBrHYlpI074QWwx HdG7VKGdwmPfM9DvAQCi kWslElU3k3P7Gq23LSJF ZWFyczwvdGQ+PHRk PJR4fLepBYndMCPrxI7h YUIsC6y8IqRoSlH6FTij A2GjWSXyoguqGi58gE2i ZoVxKwT8CWwoH6En swI7WALzlKCxKPuiOXW9 D93fy9N1MINqMKAkPFB7 nXD0eY6ecSsyjbvheVKn dDsgdmVydGljYWwt VUmyA591EOIneUtvDc7X EFJ0B8YuVbz5YVMtuHxa WO2weADpLXwtFh9gbLmr gRfbRS6hBBBxepnh UZBkrY8oKNJufZSotHfg YX9oLNGbsgxcp346SoIg UZG9RLZcsGKxD9HprK9t IgDrVAVwBGRnT1Ko bXBjNQwoM965IWywGuS9 DNJwnhKiP1VpAFAlqRrk YnO6n5H0Ut2SVXuvbIN+ KV16kj48G4FdAjpt Knz4CGAlYTM9pWJ1vZ3f ZKPcPJbui0J1uSI8N9Gi xpIydd5ov1dbLOLkXLwk G08ifUSta8Q3EQRz wKA2OTLyiEsoChFvlI24 Oyc+FQEzdIxma9IsPzsu v5hpz6eesXy5WaBmZSEx jyFajVydCGU2x4Ui Nh95J38vTKfgDFGwZTIn LTHzZJJaxRbvkm8ekS2c Ii8+WGZdxBN6xBI6vF8a GgRiRwO7CBdpF877 QnWnqXPaIpwxp6ltt4vx jXp6YeGjIMGlexGmwAfg XRT0p9ExRb39M2VhuXde r0PqSko9ip57qUPl c9V9mHX8O1BoJSMxirei wNLjxNtdHQ6nBZCdrotz ENExcH9aJIIuJ7f6RoHb BzO5RGjfP8IansY9 JUOvzWYwTRNncVKQjN9r vbfdi6khgnioBnMaHUSq JVd8ZWo1NKQmwQspUsMb XVX9BfQ8XYQ2jBJj uV1joSkvdmwanI2uAta+ LZq2q6xdiJFsWO5psCR1 EZ01RO72gVDfb5V7oKR1 A7FpDZMbusilyitu bNO2AQIwXVWrnL33Pl0k yEopAg2vCLUlNAD0CNGu mPTqP8MopG2hDmNcZOWj EYZcA1NbrCZvTNjy P653ZSsrRcQ7CQOgzeWf S6YzNDAsrWgrMpO6r5K5 Vk6IJA97SB18YD80tQJb t8Q2iCK6D8GgCNNk gbswuisglUJ3QYRxYVBa nQ09Iw2ozSsxUb5nPAWi PXR4HKVjyPLlK6FnlN9b QzLlCGAxPGQtA7Md pNHgMQlqO181PAweQwL2 YOWjluBeK5LuGAZjdHhl AcJ9q1I3Rr8FMr90XL55 AZ06iDQyh6A1qVB9 E3BwVBYnctmbexumvIK0 XPCjVNJuuK60Iy3zbQsm Gk1lOVGxSGJ9OPTrpCIk L9EqnJ1lPoAdKNEw BSFxN7YprFMoPPrmD993 WViwMcM9DJHbjsKmF7En CHCjpJnaOeT3g7Y6Wm8R LZbgydv3F9MsJslu dHI+QA59YVBxGM24dAPz hAGhb0qntBa9VsVtNXHu JEC9yQtyTPyic1FaXJLv I46bnJVoo7V8TKTt bGx (more content not included)... [facility] Wound Care Noteon 08-26-2023 Wound Care Note [id number]#1. 00OTGTIFF [facility] Coding Summaryon 08-23-2023 Coding Summary HTMLBase 64 EhuwzgiiBVc0uPy+PGhl YWQ+XV7DOIZgX74daWNh zH7aV5KLYDoILafxDWGF XSkEVbPhqrJtWN0vlMBn ZXJu IC8+MG8kCBOhYcxerJCz w1G0kIM0H72iyp6jWCky rOR9FRMuCtCttannw5bm eHq4GFhzHlvwNcUi STCfbD55CZU1eI89Bc64 kQDakLFto2bexNw6QsDa SOKpPYM1pXorYNhis7Ct QAMqT85nmRVig2U4 IGNvbGxhcHNlOyBlbXB0 iA3lVCdorzebo3fthrcw Rsz2nc51yRMwt2X8dGL9 R1ThobL9UXDmuVXl ZjixcKMKtT9kevbvz4dp bysxTiXwMSFaFYd0SZr4 VDIdcTpuJnRrFW82RIA7 YHAwtoWjS8PlWFGd qLkuJiQ7t0Z6Bx7CS2IH TfylR5XMVWFRZXqriEJ+ AU24gb64X6DtHqnkHuw5 POBjUCG5pRM7hR7d VPFjAKjwl8C2iZC2B1Gx pwWkiw5vn2edWSXmKKrz G36smGLuq1Q4KLVpwHZ2 AQOoxWiiJrCbqK29 Oyc+NVQjvAfzd6RpVvzb i7dwt3tvwUw5DtjnDRPo meBakXhgWDX1i2OoNx0a OYDrwNF9sSX9yD4i SwYjGwR6RGuaL516EbEh iJTwAvgxW36aI8MwwFE+ JSCuVlq1LJQszXajMG4i R5QlTJPyfpodqJPp nYymPT8tZHCzgwjzWMPy mW6fQFKfP9q4RcLaUgB2 EGroN9TdYZCfhzbzOb73 vC5rBpFzEfZ1QWvd D3PqivC5GIDkoUDzPBgv PBJ8G34rn0C0JWXmCTEy ECB8gPP7dW7hfVbtznep bGVmdDsgdmVydGlj XDpbBUbyR417APQkkWtf PkNvZGluZyBEYXRlOiAg MDQvMTkvMjAyNDwvdGQ+ YWHwMKX1wLlwACQk bOQuULiwGv0bjZqvnRmn VA0aPFCxptsjSRWmkU4e PARjlRRfsMzdCM1bKWHi sseja124CmDcINM4 YWNbqSOkF1KeyM2lJsNp FEFaWHRyQ8TdbUIhSDnk R390ZAxwRiX4VWUtqoHe G2NbTKDxbFtnRxS8 k8V6Md6Xd0JomxpiO8Lj gAIjXsBfScdtZMj4E9Uy PjwvdHI+LQ69RSMeWZ97 QXl5CAI5kQfaTCsi QIWjE1HwiZ5oJeJmHEYi ZGRkOyc+PHRhYmxlIHdp ZHRoPScxMDAlJyBzdHls WH6xFv0iBHBoLRAt uIikoZCrQqAgi2jdABBd YYpwAO6biQqnC3ZbfLT2 IVCph6z1Oh21N63vU0Dk dXA+JHFbfLF7gJI5 sO8gLvNaCfZ4TRwvE692 JuVuuLOkBepnz3klo2ry eSf1DbY0NFFbjmGyuRbi MRB2c8HlQj16R61s IHdpZHRoPSIxNSUiIHZh gZdqne0yqG5rZg5+PGNv aIG1qDO4bM7sHeMhJvQ0 FHgrI098FtCgqRNf Pydxy2uvx6lepHv7XiJk UKYojvLlgAmcIZW1r4Lt Bl57E8VbxSkgi2ZeHzr6 gf50yHHut4U7xSI2 Q9DeYVSltbgcxVAamFar RW7mYLLlljmcPYNjhO6y NLXvV5z0LuIrBlI4RRlo X8RwgdV7FNBkgDKm VTAchKGZgD4gppbta7zh uuaxVcYhMIIuLDn6JPv2 AQOcbJbvRsAmYCX0JmP3 ZRN2qXBpfX8zrZte tteyoN0dLhq+GDU6hMJf yROPMI1pDxacnFN+PHRk JSY0mXjiYSglDQGdoU1p RCBqR7g7UbUwIiY6 YWzzI5PvtnG3PQFnkDTt UORpzNARrZ1oinrkp7zm bmzjVxJnYZPdOZb0UVz3 LWFsaWduOiBsZWZ0 EnG1FKI3sLZncU6jhZqs bsetwC1tYia+QmlydGgg EXP2AMc3G2VlAcx1HTTq aFbgTY1ktUAqPQeg Nu5bvWlxvUijNP3wTLDs axjtj116PsJac5omGETr uOKyPCyrOJT2V37mp7Y5 GVOtQDVrHAZ6fLH0 dB7gzFyheztsxTXnrPdi rxDbkEhcEQcwLMfoJ957 JGFigRjeNlZfVJt6S4Ik Pyd7RAUalTcnHD4m zERjLGnbDl8hdQtzmPfc WW5vJPNflbzvo579YqWm g2qqGICcgNYqSCbkXCW0 S75md0U1OJCwREZi OVX2jYL0eS8mmJjrrmgt bGVmdDsgdmVydGljYWwt ZVliT770JPRoaZycYrEv hTk3V7LrWtm8WNMf tWkpPZ5krACuUGegHt6n tPavsLmaZM0nHBPgcjmn f680OtNxt9mdBIYnfUBj SGbwGBY2D26gq7Z3 YYZwWAAgPMU1wVY3zA5j bGlnbjogbGVmdDsgdmVy tVpkVCjsYNvxK437WVQk cDsnPlBhdGllbnQg PVhhYQi0S5CbGyuuzPN+ OJ38AWYbHU22dMTdzWRc l0gpfSv4AnKeJXKxIOZ0 mPonZWlvl0GfHZAb F43sdNOym1C1HVYpmGda pKUxUnRbwRF9cH1mSAuf iulaz0tijhvqDmwzz8ym ju80pR46U43dCZsp ZHRoPSIzMCUiIHZhbGln jp9wgC6iVt8+PGNvbCB3 cYJ5kI8ySMVgUcA5BLcs U789UfBdbSYySpjy q3yhe8xtgLp4CrE9TDMi svBrxUuaHHN0t5JeCq41 D58lZJyfHHIhLZUvQUNc FPVruVuart9fyG8i Ii8+XWPrpXI4dBA5dO1b DmIcHvU0YAllI864PfGl jYUeUtjgS18eR1UhyWL+ AEOmVke4JWHriNhg BC4giGUvAZfeYp2tGFY6 IeZxFgAwPZyfW8IjVTPh jezzjdojhFK5HYWiHYGv kM48Hp3jrXobWYBv bYZVmV4dwwool6yakxwq UoWxRQNfIPx6AVn3MVJb bUdbLhKsDIQ1DqY0QSK1 pVMyaN5gzCpfucll hI3iY2BsBWKqrjrlHk31 pV5cHvLyKrD8NXppVkw+ P7HCYiarNS3UY2dRLOwh SzwvdGQ+PHRkIHN0 dEesKQdkQZWzkW0mWBFn W2x5IpJmJnH8WSfnQ9Vr AOVygjbmMy30fT1tWhZu PpX3RNnsX6WywpU5 QBQivLBwDYxkKXL4Z96y g3Z9JCZvQTDgQUH6eQT2 uU1oeTbckfaqdQGazNaj dmVydGljYWwtYWxp O695TWEtlOffWeIrTrH0 RxG4WdB6H0TcNok1IBKp pPpxEE6mbEPnDFqzMy8e cHzprFdhOW5xRVHi ovsaLYVgkV0gPSMdyDUz gQwkPI7tQNGshamgl822 BcLsTTW5EMIdtPGkB4Hy vQ1lLrZgPUUtTJZa M6BmfHWuDFtqL246NGyn TnI5JYGgltMkN7WbOEOb kIduYkU8h8V9Iy48UKIY ZWFyczwvdGQ+PHRk IPN3pXywUPhpIKDdvZ3g DUHlM6g9RcSpSqW1DVuw Q0HtASFcagteBu05aO1h LuFpQtK3TJnwI2Ss jvL6NQIdnOMuFUnpUDS6 Y84cm4R7BOInKDJtFSS4 uRF8fT2juOvgxzdzoMYf dDsgdmVydGljYWwt AFucH478LUTroLogWg1L JPD1I1ArDpk2VHNspPmd AS8khGQcSYllUv2utCdp fJpxCN6lNKKtphos FMRoqQ6yKMBpkJPdsFoc NT6nUYFpmjuvd213GzBg OIZ0KPDldOEoG4XxtZ7b VeHoSBEiHESeK9Jq jXIqMJixI654OVoiVyY7 CRHtozWeI9AvQUUnzHft TlS7v1V7Bt7WCHyuhGW+ FH90ce94C5YzKbcw Pnq8EKTnMLG3fXX0uY3u GCQaGMezo3K0kMX7V7Bi fmKwby7aa3nfGIDpTIat P41jaBTlz3U5ZYEt bEF4OYIwsWjyFsRgeW44 Oyc+GMKpjLfcd3RbMgfc t1dgh7zrnAj2FpFtCAUc umUdyOhhIKU3t3Ib Tq79J92bNTrqSHAySNFu NUHnLMMryGwqdq4jrV5g Ii8+KXRroKG7tWF7gZ3h UiUeHeF2AAczS303 LySfqSRzBrzge6sqz9nd tRc9TzVbDJChojAgxVfi AOJ7z7JiNo65S9HvcWcq e0SvSmc1iw39hYBr l6L6jIG2Q4ZrXCJocuni eJCucDviCN8kSYKnfjeh CGEoyO7lMFCbJ8p1WqPg GdM8ADfsI5JnicJ9 WVNkhHUjNFSwjCHHyV9e adohs9bhaabyNiKfRMIf JAw5FUr6DQZhnWopIsUt DSZ6YwB4ZIF8cIDx pH7dbQxfbvpliP1hDvg+ CZf8a0gqfBZaTD8qfCX0 QH70GM63jIQvx2V4pVU1 M7SpWPKpthluqhis oHF1LIAyUWLsvT72Fk8d qWgfQs7vZWUqGPR4ZWRj hYAoF6RuqA2jUaRwBMAv OCPbI7SniTFqXZlu Q617VKhlHrC4AYZhlyIt D1PyTVNxlRrxLzR9y2H9 Fo3NOX09SQ58TI89bCHa h5D2aIP7T7ZvEZBw lkzzkmaqyZK4BTTsCWUq hD12Gn0xjRcaJd6xYPRm UXE2SJTsdSCfC1LycK5b ErNwZZIrTMNoF3Gz bUIlNVcjC703PNwmPoG5 CUNuubXxI2RqOKMhbIjo PnF6l0O6Ha4IDn39ZR09 UR88vSDpo9L9tAX1 A2HeEOCyatdcecodjPS9 TKInPAPyvY33Gz8onQqu Rg7vHRMfVYY0FANgsTSo H3IwbA3bRhKiZEQn NZPmS2OavUIgIWswB553 TJrlOyO3LDAthwDfL8Ne HWYfmPblMhW6i5Q5Ow4U GJvfzzn6K4KxPozu dHI+GM45XQFvAG79kKXo qOQlx9gitKq3HxDlOXZq ARI7xZwxHTbcb1ZjYIYg U86juFJmf5Z2UJMx bGx (more content not included)... [facility] Wound Care Noteon 08-19-2023 Wound Care Note [id number]#1. 00OTGTIFF [facility] Coding Summaryon 08-17-2023 Coding Summary HTMLBase 64 IrokkcnlSYx3eFj+PGhl YWQ+CZ9BKPCmV91euKMl nL3aI3FLAAuTLxjdPUND ZVkCElFophYdBO5yoBNg ZXJu IC8+NP6bIADoQnjmyCIg g2J8cWB7D53pst8lCUib qFK3SESoNuNgongle4yd rWw5RHioZjnyLnSo HRRyqX34EQZ6lR84Ps67 gHTjeKUmb9kkoUq9BxCr CRSxVDB5dYsmKEzfj9Nq AVMmJ73eaWXyr7S8 IGNvbGxhcHNlOyBlbXB0 fS5dAPdeuwimc1vhqohr Dmk7pg15uCTbi8T0pZE4 C6PidkX8CQVlpQUo UrplqRHTmQ4hxkuzb8wj tahnJdShVBYgOKx8NHy9 OGQesOdxWdJsPE33NLE9 GSZyulLbZ3NnCPHd tYuaXnM5b7E9Gu7LT4YZ DnrwV9XUHHQLFHenkUC+ DV42ov46G5YgQashKui7 XTTgWQA8eCT8rE1z BDLzUTwmb3L5eGY3I7Qw vaGyzm0qh1zxQWPyVLpr L51lpQAjg7H0GCNrnCD1 WJRrdSsoRvXwhM22 Oyc+ECXpdYpzi4QhKgop o7cda2yxrQi9TodvZWDd kbCzyVypSYX6d0UkLu0k IQSdqAP9zUQ7rA9n DvLlVtP6WKhtB997WcGt fGIuAkabU83uW1WsvNO+ INDvBhy3KFEkcXwrSV1d A8HkIDWjdtgthKFu hHtoRS4yMOLautbxLLVt vG6kBENqR1m6JpVkXdO9 CPqgF3QjKAUoipblMs06 kX4nGhAnIyM5LAxj G2GzmzO1EKTeaJRfRQvv BJI6Q64vj7J6NPDcUJXp JHI1pYA4zC9ucSocgfew bGVmdDsgdmVydGlj PXixXHulN692SYWhaJge PkNvZGluZyBEYXRlOiAg MDQvMTMvMjAyNDwvdGQ+ EEAqLUE2mXiyWOSh kZHsHNodUj1wzIgtpHhp IF8iSFFnfxvuMDOajQ9c BTLtrXIupNjtUU1qIERa mlhsh847FyBuWFV9 HYWmdSSlN4QwpS3sXnHk SGNeUVUqI4YdqSIqSVad K821NZnoPoU6ZFDyziFy B9QgXLCupVusUiQ7 f6N2Sj7Fv4MpgcemQ1Tv oTBmMfJuHiibKIl8M1Kt PjwvdHI+KK34WOZlGG71 ETa4EQW1cYvvTQju THZpK6UtqS1xLsXzFWFd ZGRkOyc+PHRhYmxlIHdp ZHRoPScxMDAlJyBzdHls YC3oCh1pOYGbDMCe aShzzUMkWgQyi2gbSKHv WKisRI8jkYvcU8AcyPZ7 XKDyh8f6Np77F55pS4He dXA+HIRbePY6kOQ9 rC6gGhIaEsW7FEniK537 YlQtdUSdCwuvt7fhx3td eSl2XaP0YNGrrvTlsSck GEU8u9QoJq44N98g IHdpZHRoPSIxNSUiIHZh rQjkxy3txQ7gKg5+PGNv pQB8fUV7jJ1eZvFnZoX7 SHqlC136BqTpnNPm Brbdz8gyu1bucNc4YyIo XDRqgsFtuZfaCPD3w8Vk Vy63O8YjeObjf2GuLqc4 ve04gAEgi9P5jBJ8 I1OwCMIkchyouDVzgQpp AF9sECMlflnfQXMwqI3l YPKhT3f9EzDhGdA6SKcx J9UjwxT3GRMyzLIu USSanWNYoS9pdcdec7tw wphzWlRmTCKcMFw0ZPz2 OWLsaOudTgBqVMQ6WsZ3 JCQ0cNBgaZ2jnRpd lycoxV0rZpt+CCC0xNWu eIUTBA5dJtlbrDM+PHRk JZL9hRydKBmqUZAxdO5w SSFtX9s7EhHkZlC0 GRfbO0YqrcX2DQVttQHz LBWlcXHRyC5pixlne1od uqtqVzKyQUGoMEd5GLi4 LWFsaWduOiBsZWZ0 HmU8LTD0eMYgmB1guGzb iaqppL4uErw+QmlydGgg CTS8TDd4K3LxIii9EBSn cVicBN1vtYPtPXjj Hr7csEnqsOagJQ7nWWDh jugue379IhUks5hnFYGg hNMiQNrqBYK0G80pv3O4 ZJDpTTXhHEC9jNH9 vZ1tnCcykjhwdDLntCwn thJrrMnvLRuuVFetC368 NRGmrRrbUyWnHLv3S6Wf Lwk0HSWxlJjvTG2g mJFdTLmiMo7irNwruYvi JZ5tQFMgazpry262WaGu f1twIGAjjCOmMAcsBUK4 I94lg7V8PALaGCAm VTY4dNV1dD2qsFxmrzmb bGVmdDsgdmVydGljYWwt BOeyL177AVGarWioQnJi aYf0B2XlYdr4KGRd pHljRE8kjUBrOTsjKb6n bQlqaIhrHF0aTAMjtqlm k008KsHtp5mpHTHctFGb YRskVAO5P53qw1R9 LHAnZVYvEVW2wGW7cX4e bGlnbjogbGVmdDsgdmVy sRqpWZbdKZsnW183DODg cDsnPlBhdGllbnQg GLcnHDc7S2IeBmnwwVM+ TK04SFPgCR41hMGqlDQu z6vkcOp9SfTqSOOkSBL2 mAvjTGudc0IhFNUy K31jfHNno4I7ABIiiQih zXRxCnWqwVE8bD3iXHjo kozoz6kbdospXxkcu7gz yq57gE13U27tJBqg ZHRoPSIzMCUiIHZhbGln sp3vdB0oYd8+PGNvbCB3 wYT7zG0rXAGcHuC0ULrc X286IhZzbXLwXuau x7myx7jebOg4CzY9XDYp hwRpxWhfHEF8o4PsGx24 E49fQKefNFOaIANuCVSt QWPkdWjawg2dfF9f Ii8+TLXorLT5rTZ0yL8n XsNbKuU7JLbdU058JkOe nUZqDacvF54oH3PajIQ+ ORDxEsx1OTNqzUwv SI8dbLSlKQdnJd8eOBY7 ZsBvGrCxPQxqE9OdLXTi sctyiwepzWH7FBSqASJb dL14Fj8xvEukPEWb uJFCvD9qnzcey4qffqso KjIiBSOiFMd0MOe8OXPb xJekKlOcMHV5UwG2POI0 wFQnhK5huCknnqqe rY6oV8ExILEmvucaLg79 eH0oFkMlCtP8WVhnBoa+ P2JYQrirWJ6IR9eFCWdw SzwvdGQ+PHRkIHN0 xAavBLbqMNIuvE3hYJPk F2u8RiXzQuD4RHxpE2Ow FOLldubzWc51lG0kAyOu GwV6YKzuE7LpahN4 VSFfbNJrZAqvNWF5S41w l2L0CZAcFGOkPAY6rZH5 mZ2bgSuuacwyiRUiqPvq dmVydGljYWwtYWxp T081LYLzgUahYdOeHjV3 DbC1DxJ9T9MpVif4WQDq bXroWU8wiXZsPUmjIv4j mVqyjRyiZK8hKIFn bxzdQKNmaF0gABRuhWZt zYihSS8uOPIgfgrgh793 PbQbKNX7RKUoeZDuL9Vx zG2eDkKkDPRvZWTl Q3TwqVFaPSxaM523KMrg RkT6LFKsvgWgD8CjNPDy zJtyHwZ4m7C2Pg87KPDM ZWFyczwvdGQ+PHRk IXC4lAtlMDahXDXscZ2h HFJwF6g6SxJfNnP1NGoq G2HjIIRvrghqYu94xA7s HdTqDjN1IEsyS0Js qjY8GFHbbKEjSTdxUGK3 O58nh8U6PPTgLIZdVQV9 yQR9lA5hoHfzelgofPDk dDsgdmVydGljYWwt FLxeN755TDYwaGodTi7X MEY0M2WoJvl4YJQrqTwr CW1pbQEbGEwdHd0dnFjz aCszQW8qMKVzrvwl JZAlwC6cAXTwgMEbfHzv RB7kSMQdamdaf294XoMf KKU2NJVzdCDrC1FihT4j CnJxBZFnHCGjF8Rs xUAxXIoyW134XNeeFsX7 FFZxjtHwM6GbRHYexGpx NhR4e5N1Da9MAUlwxWY+ DV58qc79X9JeWlvr Mmz4ZEXkDKK1fEI9yV7y CAJkPEain2G1gAH1V6Av ypGvmd3za3pfWWGiVSgv E31yjCKgk8Q9GPNq vVI2IIHdpLmmRkZaqA41 Oyc+LIXzhFmjw4DxBtpc f1kan9onpMk2AqLiWVXd ivLbjMdnAUJ2o7Lp Lc71I55hGUfxJTPwUQPt LGYjHVPjwMqgzf2ttI9f Ii8+TEQbsYQ4vZU0oM5n TuNrXnY3ACjxW922 OvJzlQBkQowza7nyk5np tOl6LpBcRWAvudVlqSib DID4m6PgHh05K1BnuPtq k9RmAve9ki39zDKz m9M8oPG3Q4NsKCGfribs qBXqhEtjPR2yIJQyleeb AQZgvT2yXMZcL7v2KkXs BjT5TJapJ9JvtcB9 MWFmgDDrOUVfmLIOhW9j gznmd9fvyvlkDnPqVNFt XMi8JZx6ESYfgAeeWcSw GGQ1RrP6FLJ3nOLh pK1bjIpmssygiF6lJed+ DGy4m8pkqERfCW2pvNY2 ZU57JZ75mMMcr8V2cPG6 T1SjVOYcqjdzrbtv yKC8OVHnLDFpjD58Po0a rZjjPs5gVKScUTM9LZUz wDHaS5WgbY2hNbFcACGf JQHcI8YrxGMxHPnr O655HNkpWcD7KUTgzcZs M7VeHOMcxFzgXeU8w5U9 Or3EIR02BV82ZQ33qUDl b1H7fRU9K6QdEBCt uasdgzjrpVF5DXTqDKJl cQ25Ms1fuPqtRp3wWKEm JQJ1KFKodGRnW6YeaN7c HkQjACFkKBEwN2Yt sGWsFOsyS682RFxvUyC0 CVAqpiHcK4DoGQQbeHln EpH3y5W2Lo4VMw83QE95 BP99kNJpx8O1nGE1 W5AkDTSezagwggxqkVD2 RHNxTMIvqJ75Nw5rfTom Vy9kHYKlPJB4YRQatNNy O0YkxL6qFqVkYPJj MTScE5TioNTxVSopS828 VEhlLfL6FJYxupLbL8Dh AGXqgIqcKvH0w2Q9Pt9X QVghahq2P0QwLvce dHI+FG83IYBmJA49qBJm xLBfy0regRd4OtHrCOTj ZWC7qYkrBKlte6SqMECh O43mnZPiz8F4YOXy bGx (more content not included)... [facility] Coding Summary HTMLBase 64 CwwbybccCOe7kJm+PGhl YWQ+EL7BDTTkI09aeSVb wK8vW1NGNMcECdrbGWEK YOwMAeQowmCqMN8utMOy ZXJu IC8+VV1sKZAqYnlzwDSj l3C5xCX8N65tvh1uXKqh zKQ7TTSyAmLbytvdj0tm xEx7YMyaNheqKbNa UDSafZ33FUR0uD14Pp73 wYPklMOak7fsnFa3CpCm YKIsEVA1dZsaTRsva2Wf KQEzQ20ojCSjh9P6 IGNvbGxhcHNlOyBlbXB0 zJ2rQYpplzlla2kquebi Aaz6nk75vNLpj0G8dWK0 X7QisbY6UWIpoAPl NyqbnINYcK8empuwb0uz ulueBmGgHPFjMTc1CQw2 HBWgvUlaVkQqDM47WQA4 XSKdnaJwY8XzWKHq kStbEgM2c6T1Uz3NV9AW PsmgF4LJUTXTCLekbWJ+ IG06il67V5KqMokkYdq3 CHReEPG3cJL4mC8r IHSlSCxwi0I2wPZ7D1Tw aqQfcf5ye6ltHZFkEZti Z96yaJFmx3K8VFUpwDZ0 UCGqeEpqOjAljQ84 Oyc+OBVtcZnbr2QnOeqi b9hng8svhUg6YdohEGWa rzOelQxoYBU6x0CrYa5x NZEsaXR3sKU8cZ3j KhFnLzB2FYrbL941QhYp sYYoMeoqC86xO9MnnZG+ ZBPiSeu1LFYnmNpyMJ9k D2JeDAOrbbulgBJt fHhwRW8vDDWxtvxrIRWc fL1aMOTqD6f2QxJtMjZ7 QIrbP1DaKNXdqqsgOm31 hA1jMxFgLiT2XMaw V7AlogR8GJFpuNYrJQrl MDL3H20zi0O6ZRVbQXBh JXR0vRX4uM9npVvoiliy bGVmdDsgdmVydGlj GUzrJEurK617JSPjqOlk PkNvZGluZyBEYXRlOiAg MDQvMTMvMjAyNDwvdGQ+ BPBnEZQ1cXsjGYYy jJUvIFslHy7ovXjvsLiv VW6mFRFifdbxDEBrcG3h MXPewCCesIrsMU0rWJOa objhw229MeKkJGN7 ZDAoeCNuW4XdoH1eRzIm WOBhQYSpA4GigJEfKEpe A869XYzcMzR6ZVRuufRi U8NdCPXjbEspDjP4 l0Z9Lq4Tk4WboerdT8Yx qEIhOeVaFtpcCKc7F1Kl PjwvdHI+XF92AFYxCW36 ELf3RNE7kKviEMxv STPrR5UisH2rHmVgWYNn ZGRkOyc+PHRhYmxlIHdp ZHRoPScxMDAlJyBzdHls NT5mOx4zXVHuOBVk wUxacTNjXpFjb2cxEBNr YItvRF9bnIstC9VpyLX1 KUBvv5i3Ec19H23aA3Vn dXA+YMTthDI8jJD7 nR4qAyKfXzS0PLeuP982 FcScfDZwHfbxv2xnj3sq nZx4GeI0PTQjbzJapOnb NED6l7IbEn94S17y IHdpZHRoPSIxNSUiIHZh dSiaks9wyC1uCu1+PGNv wFG2aEX1fI7mRpEgCgU0 ZYfhG402IbUgpBUy Rrwys3pcg7afiSn0LyEn BTRmbyChgGjyMQL6c2Zw Wq99V3RlhWpnl0GtTsk9 ne32gVNxo7Z6qOO0 S8NqJQWqqqglzZOidUmr LG1dOMKqthddCJHsuJ7l FGPxJ3w7WgNsRkN7LSku O5RrpuM2IWHzgDPy ESBysMADaM2trxuai1op mxnyWmUyAQXuNRw1FFr0 LSSjgSvvUeCyDAB0QcO7 XSL0wQTutI8toTan nninmR9qZiz+TDN4kTFe vHKDUB6yStemhFG+PHRk AIU9vClxWLmeRQDaeD9l RCFmZ4j8DgGlKeQ9 GEigB3KhirO7OSAxtLQx COXkvAEUdE3juxrjh1fz kwunSxXpFTIrIVk8CLe3 LWFsaWduOiBsZWZ0 GcA5BGQ0yIVguP6ryQbw qukpjS8bVqb+QmlydGgg IUM0ECk5F7PpHlz0FXRg mSqsHL5waFFfTGqb Ty6ayFrdeHzcPL0nZNYp tbysn249RlNny1vuJGSw rKQbIVfhADX2T53xd7M1 UHMjTXYhWGW8kIO7 mP5tjWxbhkrpwZAoaZuc xeUgxScwWTypTHewM450 QWNdzCetIyEhIGc4P9Is Ixk6RIHzgLprDV0x aHGxTYxlXr0haQsbuXty LP6vGGQvzzmxu591QxYz p0bgUOUixLYkWYkkZGS2 Z92dr3G4HSYcVZQt KKZ1aLM2rH1cyUfayabh bGVmdDsgdmVydGljYWwt RAzjM837PEShiOycDbFd kUn6V3HzVms9NHOd oYlwCQ6meHCqBFkuVr2r xEcoxOadIH8pZYZgisig t067YxDqf4qzYKEitBHi WMhvWHY0S77nc1B8 UWYvAKSlUNX0pNM4bC8o bGlnbjogbGVmdDsgdmVy rFcdEOkmHKwvI768WHGn cDsnPlBhdGllbnQg EDvzAEs3F8OcJmkwqQM+ VD84GYFmWB80rTKafOSd h4wyaRi1RbDtGEGoJRO9 jXfmVKbsq3ChXYSj N06vlVYnj5F4ZITyhUkk wQYsArScwYE2sG5wAEqc kftgf1yqfzciOizvs2hg by27eT83H42zUWmt ZHRoPSIzMCUiIHZhbGln bd3vzP5iGb6+PGNvbCB3 oZD1nC0gDHBjOyB7IOum U968LhKdvWIpCfxp b8xin4csxJz1BaO4UPNc nyYtjZvvLVR9a5HaWx79 G04xOHctFJKfPFHkTXJb GYSvoTiafv8guW4y Ii8+VXNthHU1uVE5hC0j BwYlJjH8YJanT520NkWz hBDzLslwW34zV7LwwTT+ KSNvYqc7TCUjxTyx CQ3deCNgNSilSq4zVLP3 PlYdKgCyGWmiI5YqNWUi zpajopwvzIG7YXLsAOKe fT76Hy1lxArzTUNq lGTEeO3mqssrd7nsnvfo SwKjODYtWCy1BFb0MQLq vBsiJsDmBPX1FsS3DMW2 bPVsqV7qzJcychrv rV1bG5DgPUIglvtvSk45 yN7oRzYcOmD5YVnmBkr+ G7GLSvrkVK1WN0jNFBzk SzwvdGQ+PHRkIHN0 hGnsHQelJLSffF4dQXTg B0o1VcAkYwZ3MNaxU4Uo VROlbmkiLb14uL0oQfLd YgT1MVabB4AsssM4 QBWxlQYdVTiwMCA8S08r u8A4PYYvHPDfNTZ8aMR6 xQ9xdUslvfeemEOrkKmp dmVydGljYWwtYWxp Z082IQGwySdyJxKdAaX5 NzB9RoJ2Q4DqFyw3MTTc pSzoZD9upZUwDOpqVx9k dCfdeFwrFA9rWXBm dvaeRZHoqG8yIAStzXNu cAfeKP6gIDViwtzsx850 BsWwHPY2CYHenGCbG7In fK4kUvSbNPDqFSZi H4QujIClNFecA975YTee LdI6BUYwtyHcA2QfUOLm iElaWmH7m8B4Xz96XMKV ZWFyczwvdGQ+PHRk XTV8fZogWSkoOIQpiZ4x OAMqW2k5YuQgFdY6QYyh R7XcEFSvuqtxDw25hX3b MsJwGfZ9PIujK4Wy esA4DPOvdLKuSRanGCK2 D09gx6C8BBJcHENfMVL9 jKR6kQ8ciPdncfeqyYEt dDsgdmVydGljYWwt PKluD962JCLecEyuQk2X BKQ4U5LiWcs4LUDeyUyp WA1vkHQxVZebTp4tdNuc dBxoIH4dQLTdivta VIBbnB9aODWxxJHrcRlz MK0yFMWblchsm708LjXl KWV7NMKjsMPdI6XzxY2h AuPmVFZsRAAfQ8Vm xANoXFznQ362BBhnLkB4 YNPbeeHnH5PaPNVncVsh DtY5m6Z6Xq2UMSaveMK+ QM67sb02X5DpKzqv Jco9DKSxKVY9iPY5yV6o OWYaDLaqq5F6cJF9E9Ta qjAqrf3io0rtZKBfHGki G64trHMsg6Y2AXVc wXV1ITWirJgbQoSrgF13 Oyc+SEPuvZmge6ItUrkq k8izr9phiBy5WfPnWZZb lwAtvSgvWBA1x1Uz Mo38C52rUXrhQCCgQOCg HLYqZJAufKarxt4qnQ9r Ii8+JGNpeHA0jYD6cA4b ZlWyLeY5XZwgB133 PfMqeOApTvman5lwe7pv uPn9QkXcHEPxshAveKzl ZPM4w2GpAx22N2QxiLwe h1ClIxc8eo48bSNn e6U6wOV9Z4FfGAOpuypi mTHmjRryMW1cDNScvpaj MATjcF7bXUOjR1h9FrOf EhO0NXggU6NxlaP7 OTLzeJDtKOPecOIZlL1p wegno6gxthumNkQqKSSy FTk9MUs3TNTkyQeiKzAu XKK7AqF5OGM0wKHx rK7nvPozhshkjM0gZgv+ QXd3b4otlIYhZO7ixRI7 TR79IF30dZEth2T0gVU9 D9HqRUZqbrgtgyve sOP8FIIxFQAdjW96Tg0v wTryJs1fCTYaHNH2HSNu zIAhN8GrjC3jHaEzZXTr WNPsP2IawDNfTOot Z173ZHewEtJ6NXXszpDx S4JcPLXbqSatOiA8o0V7 Ow8AWL82OK93DF82nGSg o6V1fHT3H4VgMYLm jccqqyerbIE2IZDdVVJq dF64Ft8ajYubPg8pHYMn NIU6WASjbSZiO4DvlD1x GaJuXPJwDVJpX1Qd eHYhYQleD927ISezVvD0 EQXuciPtB4EtPTZfcHev MhQ4k6D3Lc5OIu87RI44 UO03mTWgm7F8qND6 A5PrUUGswyudrzksrUD0 SRMeBMQhsD30Mr1oxOgw Sw9tOZEiKTF3CDWbsRPg H0DmoG3yWwGfQHAg QZIsB9KmeQDwBVzyN465 FIbfPhE9GMXrdbNlR9Ce KDNecNosXvM0h0E8Tu7I NCanfti2H1JlNbbe dHI+NB50CNMxNH78tZYw xKPns2uimIq7UrKxZQCq IUD2aEowOOgid8ZkSVSa W70cyMUkm0V8RZRx bGx (more content not included)... [facility] Coding Summaryon 08-15-2023 Coding Summary HTMLBase 64 WogitgbgOVc4oGi+PGhl YWQ+AU4MLRGzL17ovUWj lN9pM8SCCBbAGbkfPHZV LHyNYkNicwEjBC2qaWTk ZXJu IC8+WY5iILChOlnhxRGj d0G9oPR2O24izx4aNBqq aWR6AUXnLvEhcfexa8wj wOb2TRraZjigKoNq JPHyuM31VTD2wP98Fw11 vGWbwONmu1gafNo0QfSi YALbJTY4dPmwPEcse4Sh IDPiT25mpQAae6M3 IGNvbGxhcHNlOyBlbXB0 cS8dRNbtitivv6zwdmbk Fxf1ai29vYUjm3U9jHJ9 M6LigqF9WLGroCBy FhvuaPIQgA9fheimx0ar cjpeEjSdSHDwTUe3BVs0 SKStwMdaHrSjVE38OQF3 FMYrrmDfG1TsUOKj dVrsWaL3d6O2Ku1FY9IJ DnuhT5MDNTPQSXdewPJ+ RT32sl78E9XjBtgdRya3 YNGrYNP2hDS2rK9r NZTfSOnfz2L1zXZ7Q6Zi ntNtse7ya2zrIPJrDUod H65kdGPqf4S6ODEryWI6 JZMdrKzoSeYybS07 Oyc+YPUzdGwee7BvCbny b1ztp2aazNv7BcouWCKw zgUddFknWJX7g1ZzOs2o ZNJfgTS9jJM7nW2d KgHvJeZ0UZetG907ZiWz sKFjZaoqX84uM7OlfHW+ QUIkCqr4AVHlbApyJH6w T8BkJAVuoyesqHIm gTcxGZ8lAANanlubENLi pV2nJWSgA4c8CiZrHxC1 SUenQ6GsOTGfqvpnXx61 xN4gMqVbIgT6WVql U4LmgiD2OAWkyOFoKUgz DNT0F40dp8W2TUDcDKXy XEA1rAP6cG8baQxpcbma bGVmdDsgdmVydGlj NOfqOKazP185GZZwhUpd PkNvZGluZyBEYXRlOiAg MDQvMTEvMjAyNDwvdGQ+ OPHoPNR6zOpaMVGq iCChLUvjRj6aiVuhtUfk BJ7dTJVdhesdOHQllS4i SSAqgUGzsHdsPC4nVCQm lzfzq195FfZgMLC6 DLEntUIdV3TamY1gWjMo APTdOCXmP0XscRFzJSqi V770LJmwWeC1CMXsbwTv B9BdLBRlwSevGwV3 s3B4Sm0Ag5MeqedqJ1Ln fFUkFuEuDeapUQv1X5Di PjwvdHI+YQ69HJSxTZ30 KYt3FMB8sIwcXQad BAMaE2QmvH2wXpAnZGOb ZGRkOyc+PHRhYmxlIHdp ZHRoPScxMDAlJyBzdHls DY0dXv0mJNFxZZNb nKyqvPJoPqMbk1aqAHEj UEsxVJ3kzTrmV1OttHJ5 ZESjd4x4Mc82B95nL4Ow dXA+ABFxtFK8pLU3 zC5jHcDdOtV5BIlcH192 NxTavXIeDoilo8tvd5an nZg1BzQ7HNShdvStfOfd ILF8i0RvWd61Q17x IHdpZHRoPSIxNSUiIHZh tEnecn0obQ3cOo4+PGNv uQP8eXP4gE4sMyGwFvL0 AOvyV454ZuUdeEFm Ostxs0kpe2pqaXg7CrDm VOCxujCtdAciOHC2t6Xh Tf59L8OnvNnnn2KfGjl7 zv40hHJqo6M7fKH1 F5BsDPQpczalyALuxVug EU7oRGGaqzfoPPWcfE1f BOMwR7n6GnJoElL0TMmo Z6ZdzoV2MLCqoDRb FYDxhBQGmC7napfzp8lu awkhMsYkCYNyKZt4ZOl7 YXAkjXwqYiRwZGS3UqE0 VXS9uTIqrL1uvIah ezyhvS2eOjk+NBI4gITz pNVXEJ3kMxsngEW+PHRk VSL8aJdrPFwpLOOdhF6a LNStO7w1XnSoNtV0 EEpqF8LjzuJ6FAXwdCEh SURlqHYImX8ytdtsw0wc kuodFqGkQTEaXSh7BDl6 LWFsaWduOiBsZWZ0 KeX4MST7hULfwH8swEyd krohwH8wJkr+QmlydGgg FRD4FSm3K7PnDcw7UNRp nKhdFG6beFAyKUcu Ot2oaKwvrKneHH4qPEHg piezt953ZgGzj9jlAECu rQGoVVdxXKK1J20rp3C5 NDLyICTuLST5hUH6 jL7beYebakrcdGTmfOgf jaDukOynYLkaTFgeP052 ZCZssMjnOrExQDi8F7Kv Ury7ONFfkOrrUJ9g uXGtOMonFq0cdVkpqFod YI0pRYMafxskh874BxCt h4mtJUOxlYVvSWslVUQ2 Q77su6O5YAXsNOCo WNK7zAC1kL5ioMhrmaow bGVmdDsgdmVydGljYWwt YIpuW759UQNmgQmjEyTb nEp7N5DdBvq3PLDh bGdiBW2ivWMxYXabPz2s bKbwpEfnAK4kNWUritzv v867WuRgc7zmHHKhrHWm PCzoASR2B41rp9P8 PQAbHXOyHHP4dHJ6gG5s bGlnbjogbGVmdDsgdmVy gQkuFNdpPWrvT943AQFe cDsnPlBhdGllbnQg CKkmVGc4B8VnStmueQF+ YY34IDDbUT99cULlqFPs i2jjvNt4XsGhTDCoGLF3 hKpgQMptm1DoMCTv F21fqIUyz5E7VAVgzKfn jGFnVtBoaCO1aO9aKGkg zxnjb8uvuhdcIapta6mz qf58hI12X92zLTau ZHRoPSIzMCUiIHZhbGln yw9edU3lXs2+PGNvbCB3 qTQ5hD1rIYXgQbL4UUmi Z954YjMlaNDpXeig l0svb2yjmOl6IpC6DBTv yiJneOgsPUV6p7MyIg25 T84nPEfzLGHpWHOhVPBd XPPvvKoqmt4xjJ8k Ii8+MJYixZD1rJP7qT2u GjZmOmN9VCwtG541PjDt aVQhDgvgA20bM7ZdtCL+ PHChZrf0KIDtiBwh SD2qlEDsHWjnEk8fYTE7 WnOgRvGeZKzfE2TeVWWu zcmgwcudoBF7EWPwAFYy zX77Vn2utEltTQRu fEQElP2exmlbg1jmdpxq CnLwJHAqMSo0LZl2ETHm bZraCpQkUSL3RuL4WRF3 rXCnmW8bjVclcqvp iT7qS4JxUFBltnusQj94 dZ5sXbMaTnY7WRrpDyx+ R3HCPzipXO9CW0oORVep SzwvdGQ+PHRkIHN0 rUohZOgxVWOkgZ9jJTSl F8p2LoAkWxP8CEwtK4Dr JHOplrxrEz91mF5aMqLt HjR9XMvzX3DkejL3 RTOpiAAqFGnwYEP6Y31l l3A3LRJfMQIsPOG8oBX0 mL9euCbbajttoTTnoVxf dmVydGljYWwtYWxp S308YKTocZmaOyKvUnY6 NpH6KnK6C0BbAfh4SZKa mFgkHU0azXPtDVfwCo3w cXnosPrqUH3tMUMn evfxQHItqS0tIULkkUTe wJzcYH5kIEZzilzyj138 NeShDYL2MLLbwDFeW2Zb wL9qUkPoOOWpUCNd V4XedPDtHJmsL116BQym ZvG9ROCvnaNmY1TrTQPy aGqvYaZ9j5H9Rz88MJPU ZWFyczwvdGQ+PHRk LVL9bRrnWIhuPUIozK7h LTXkQ3c3ArMhYrL6EMsl G4ChEWCyqlysEn25fW1g FnCpJpZ5HIubG5Nr kpB4OOGswDDvJWhxPGN5 G34dh7D0CBMaJFTtQFC9 wZX3oE8kkJfqwbgrkKYl dDsgdmVydGljYWwt HSgoS298KCYgxTggLv5W SKX1V1NwGuz4SRQgoGfg KO3cjTUaCKkfBn7tyFab fKjkRW1bWCBjyirx FDHkzV4bIOXucXPdzAar YJ8cWUHlrftlg924LjIl TCS7HFPokYDhP3VjdZ7t HySqDYQoXCExO2Vo iRDwEPjgV399SXimFdH0 TXCycqBmD9LpRYKixYsy ZmI6b7T9Ts8QUIeaqOT+ BS64vq46V9ZfTibx Reu2PQIfWHF6gWM0aS8a DYVhTFcwp3K3rYH7Y7Nx vlClce5da1jrTYAsKZeu Q93kdOQqp2L7QJCj yDF0SPYerSgcZvTypK23 Oyc+CXWklMhst9AiOpzk i5vvg8ubjSd9KzLrSAKg cqBpvQzbMSQ1b5Lm Ym83K28bPFwgPSJzWKSm KYPmWMRsiFjirg6pkI9t Ii8+UQTjkRZ0sZH6rP4e QfXsAlS9QSzkJ039 QwJnoQBcZmwyi7wjc1hp vXh8ZmRbPHDithWtpWna DHP6m4XsBa45Z8TulOny a7RqZpx8pa55mMJg v1S6dJV3R9WjECSyoauu oFFfwPsgHM8yCDGlhnau LMBawG7tOFYnF9j3JvYn ObR7FTooS5ZcwiN4 JBAgcABaDQKcaQIYoG8p mdxif2nbpafaSxIyFOMl TCy3CRc7QUNjcCjbAgJq KCX7YqI2CIS0cSXu rP9oxShppnfpfY2dVsq+ VEf3u2xcgEZjAJ7nrER4 GD03UL26fGZke5N7jIC4 O0PlIFVwawnnmiia wZP0XHLqKPQveE42Yl0q lXmkGm8oMKZcHFA2JYQh qEBxF9NkzI9uOyFrTAHz HBKeB0NcuDRfUNkf Q011WZddPlR6DSNgjbKr B8RqJJJaiUbfKmI8i4D8 At8OSD12MY56TP68iCUz l8R2qQC7O8FnOJGs tiunitaaiRI2KIGkXZGg sG47Qt8eoRymQc9oICNd ESR7SXHpbJPcM0IjzI7u DjYiGNPrOMTuQ7Ty tRMmETisJ075TKwuYxQ0 KNEhxhXmB7KoSLYisGvu JeH4n9C5Xx1NHd03HW74 QQ23uSGwx1A9hQM1 S6IgXHUqitjzavcrpBQ2 OFVeXXRmfO44Gj3dsExk Xn2yPKOkFVC9ITYgfPHb F0UlsQ0lXaLaVZIg QUMsQ2PgtYLfWPtvR044 WEjdJsH8KIPuicVrI9Ru IHJxgPxwPuN1l7V7Pw1Y NDxpejp4M3MdMjxc dHI+PA29JUDtEE98xBSk gFZfo1xkbXm6DqWrPODz LVN1aDmySOepp4IdVBCm B67vhLCnp0L9VPTe bGx (more content not included)... [facility] Coding Summary HTMLBase 64 BwxrtexgXPx5oYo+PGhl YWQ+EP5ZVEAbI43yxECs xI7qW2DNOYaOUbwxDPHV LYnOHuShetEnKJ1icROv ZXJu IC8+GF2tUZWaZvgwoIPh v2E8cUG8G21vff8yLDfk pQI6JMVkApPnseofp2jb iKf5QTemVaitQaVg FBInrM69RIR6bY29Pk30 fABbzMBks3cdhOs3WiQy DQImBIT8eLqbTDrhx6Fn CUUxG38snPUrw0S2 IGNvbGxhcHNlOyBlbXB0 xN9fPPenfqbpg7rubmem Gsf8to29pAIlb1G6hGX5 G6WgcuT0SQGhpANq XkftwVRHhJ0jaxyyh0ne psnkXxWoYTDaLLt1FJb0 POHbhDwoPzFhIA50FOO0 QJGrpfDjV1UgEYYn yJieKwV8a2P4Ba8IZ0WP AzrqN4TWAYGFWGqpbPZ+ JK59gb29K6NsPtgwDgw9 WGWjPGG9rWY6vI4y DFSwJJscu8D8mHI6V9Tq uwHkfk7ke8ycDRQnIQcf R35tpRYpm3K2CFTkhRI2 ETAjlGjvGbHerD60 Oyc+YMWenUyax6LvUeta m2nvb4kgvUt1ZtkqECQa yqLlkCdsKYS7e2DdYr9c DCYfyUB4iQF1wZ6j HdQeXuB9MCryC475JfSa fYVyZxikR73jI9VyaNF+ XKHuVbs2PCRkrIgkBJ3z R9FtSZOkyjctaASl uOovXN8qOYOnbieyDPNa fA6gZDBwY1o7HjDjUkQ3 AZmiZ3YqPCRfufteUr42 tQ6nAxTnBdJ7KSge M3EgorQ1LNRnwNLtRDkg JUS3R06on0J2UYFwSRMv GVE9aHY9eZ9ulFcctbkb bGVmdDsgdmVydGlj TYlxQZtyR585BVMmfRbl PkNvZGluZyBEYXRlOiAg MDQvMTEvMjAyNDwvdGQ+ RRHeGIW6oExnYUZm rHKaBSryCc7evCsydGhv UZ5sEPWranyjRKVunH9o FRCceTRoeRkbNL6nGHQz zpjum865MnZuYIH5 NZBlvUVxV3KvuF6tZeXl AQWtOPBiJ8HogRFyCMeb R636VHatGkK1BGCopkOr Y7CjQSIklQpmRcF1 d7N4Rv3Dj4XdqcdeF1Rc cRErLcIuHivfVYl4S6Nr PjwvdHI+PV56NAWzMQ91 LCb0VTA5hDtiFZjh QWAoM8QtoC9iUbByTQJn ZGRkOyc+PHRhYmxlIHdp ZHRoPScxMDAlJyBzdHls BG7lVc7uSGBkDSGs cTqmtSEaNfBss3jyIOTy IQwfKB4tiDfoX1RniWB7 LUHoj4n2Fz72K51gB0Mm dXA+GGTysQZ5jSZ9 yX5fIuOyHdZ7EZrdQ339 JwZvqKFtPmmtk5hcf0ht lXb4QcO7UYSaguOgoMag YIZ6z2ZlZj62L86k IHdpZHRoPSIxNSUiIHZh eQyvyt9lcG6cDl7+PGNv kHA9rOW9nX5aWfKsGqT5 OMrcP430LuWhhEGd Saehx2tef7qccBa8ZzDe COPwjrDaiNheNRI7h8Bx Am88M5ZttPnze9XlDpk4 aw10qGLsm0S8qND5 Y9ZhWWXvomjcoRFcrZzn XV7lODGvoefvUJRuiU0v YMInP8e2EqRfMvO8PXhx O3HuntZ4IWEspFKw KKEnsZZLfM0efxssw0df qbqkUkQdTLVaDKw5DAg2 PBHwuBfgJlFeLUC9QpN1 FAZ8mFCoiF1pcNbe siaxhY6hZoj+QDJ1eSSa sLWJAU2fFujuyOX+PHRk QQV9iKjaJWciJASqlL0m IAYsK4n4EdVzCxE2 CQnmZ2VkigN9GTTjnETc QDUtgISQzA3pdmiax4ud uyzjRwRrMBMhLXi1FTo1 LWFsaWduOiBsZWZ0 IdP3RWN6gZSvtP7ykQfm zsdheG1mBwd+QmlydGgg MOQ4UIe7U6KyYtz5BNNb aSwzIH2wyLWtWYop Op8tuXtpgOoxRY3oHIRn fkfrs337UyLko1kfPAIy jRDnFFnhSFH8M35ge4E6 NRMmXYZxTMG7eQD2 cR8toCmuwvwntCQhlFgo qdRutCsmLMjrKIdpI533 LJUvhSldDvFdTQe5I1Ui Oeg2OYFjbPeeTZ7r nPCzMQdiBg2urZajkEuc AE7yOPXcxvvex817JhGo q9fjJZPtdYKbHQvqWQP6 P68xk2A3YOYiITWa IDM4cAE9nA2hlSyqaspc bGVmdDsgdmVydGljYWwt XFwqD554FEJyeTbaZnDc iUt8S8JaCki9UTSo kViiQA7anSKvMSbxDy5d cIhgqSbuRI5cPBKhblnd s904MjNoj5ctZLZscSYd ZGjeABR4H26eo0S2 SNHaMXFcBHF7lGM4fR8j bGlnbjogbGVmdDsgdmVy kHosLPizCZsoS930EDMl cDsnPlBhdGllbnQg HVjlBIc0T7EzOcghrQU+ UZ90VLFdPP50wLDvwCGn k5hfbBs6PwTqRJIjUUJ5 mOmcNCzsm6DpPMZo V15tfRTtr4J5KPVjiXac tXJxUjIwbEV1bR8wGLbq jzmjk3fdcaggXbemj1yn dn15dC04E97kVRfu ZHRoPSIzMCUiIHZhbGln qu2ckL0vBo7+PGNvbCB3 pTY9kR4dLRRoUzQ0ULnw Y786VqAzbGDmQjuv b1qwq2zxxGj6AgE4ULFp cvNrdQthSHA6w2XgQk95 W90uVLboQBGbYHGzWWVv ZBVdkEjvlv4ozW5u Ii8+FEDuuZF1pWP9lB4k LyJfTwD7ZYgvS885LtUr vMBeSicqS78jJ2WtfNX+ VFRvYnc2NTDwxStn ED2ftPChTAqyJh9eGWE5 ZpPrPeEsDWheY8ZqAASr uxyonicvuQW4YYGnEUWd hV13Rh3qnDbiNVDf jHXMlI6fskjjs7eyigya UaGeVVUqISs4RZl5AZJg iFnfIiQzGXZ0ElX2DGZ9 ePAcgY0ipQjxgnhi mU2cV0SzSHVrznclIc37 zE5xPbAbBdG9FQujDee+ B9BQYpwdEY2AH0nBULwq SzwvdGQ+PHRkIHN0 eKuuAFwrHCRhlG6gUUEw L4o3XwThOaB0HYklA9Qu TMPcevgtAs06tV5bOwVe WxD7GFsyY6YtfnN4 ZUJqnZXxJXhgFEL6O81s q2Z8ODWlCHWkHKZ7sMY5 mA9hqUwrlccjuWIrrAle dmVydGljYWwtYWxp C128EHAzqLhtLtRcQpS0 ImH9TpY3V9MjIai2HTXf jAyvAL8bsVYqBPcvUc8l wOrpgYtrZQ9sRMOt qvzeBDXstP5kACUkvOBz zNoqRS7nRTQpfasoc638 CwKeGYH8ZMDfmQYyY6Aq bY9wLeNhMOFzXJOo M6WhoLChFXutT712DTer TnR0RGIlzdUcQ8YfZKLk iYqtAkG8c3P5Bg31ZLHE ZWFyczwvdGQ+PHRk ZFK0qKfhZTbsRLMwmB8g FEWxE0a0ZeToGtW6JNvn Q0KmCZZsiehuXi78gH7u OcWuHfI6SCrqD0Ag mjA5ILVhpXQjLWgxSWC7 R08ad9S9ZDGaDKKoTDU6 eKT0wI2pePmhazgmqMLh dDsgdmVydGljYWwt MVkqS285BMYteOtfEd8N FWV0B4NlIrx5XDJuaFfe DI6joEQvPRowCo6owTuy rKsrBM4oVKVcjizz UOCffC1cWOToyHVurGdh RN2kMQZhmuvdm835FcZy GPP1DDXzaHYoZ8XwoL5j SsGcFJBdGSJdP2Rs pNPtIUrfL151UXmaKyZ1 EFSgwrBiN1NqNNIydWob EoF3u3K4Jp5ZXCrfaNN+ AL00to83H0FdQaip Gcg6AXKiRAH6aIW9zI9s EMJjKBqyz6U4eUJ8B9Kr piLbad2dn5ruPGXsYLmf G21dgRGiv5U5IBWw aHP7PLMjiRipYyHfqF76 Oyc+QAAubSfts7RaYtfx a7pvk5goxZf6WtIvGTUv boSxqTmoMWN4h1Ly Vi98U88tSEcdPNOcDMMo QIShXHUvfBeydk5jgA2f Ii8+WSBekIZ9jRO9fL9a FfQkBcI5VKvgA960 OgZtyVRqFwlfv9tiq5ia nUx5UnEuTMDacuPzhCid RZM7t1VmHl18O5GrzBcv w3DgDyb8hs16nFTk s1T3vMQ7P2NyPAJzpafv dOKhbRwtAB2zFVWxlzzv UUQwyV2oDJOkU2k6LsIz UgC1XMjkH1GpykS1 TKZmzWKmCMBsjQJGaP3c cpqlk4lslkrcJvNhXWBv IFx4SRc5SGVtdPnuTuLv BAW0ZsV4ENM3tIXe wY7jgZjsjqqksV0iCxa+ LMm0h2jsiJLdMJ1rtFR1 NY39JJ27yABdk5S1xOH1 K6MbTHMzkemkoehn jCW9PHHtEIXtaV77Iy4z xTsiXx4fSAPaRPB4CLSo xAYaR2ZpfZ0oRzLqNLRy KOJdK9GynXAeEOyy L897CBnkZoM2ISDqiyUh E6YpPRNujFqhHxD8v2V8 Fp0WGP08KE60OL50dFQj y9X9kED8H2EgSUDy wqhakwarkQR9LZBsJDAl qA86Fg5vaVlmWt1lZMXi USQ4VUVdxKWmW9YstY7h StOlRKHzLRUbK1Cc eTVwCDkmB278GArrUaQ9 YXEslhYqV9TyZLAakWtt JmJ9e3U7Uy5JLk23XC02 MC30uJFcr9R7wSL9 L0PxLQBpiwecaqofzHJ8 QPWjOBVvoQ11Pl7tdVma Ct5kJMYeAVP0PSFqrCWl I0StsA6aSmLqVXXp PKDpT5WbaNArCPsyK581 SJpcFtW9NQXupjQkQ8Gy GHIxuZkkDzU7r0A0Jm7T MFggbex0T2NpPgzi dHI+DI09BNCfBS05pYDq aMPie5yfjQd4BgHiQOOz SUG2sJhgHMsxu3ObDXDk M23fjJMpx0Q9NJRa bGx (more content not included)... [facility] Wound Care Noteon 08-12-2023 Wound Care Note [id number]# 1.00OTGTIFF [facility] Wound Care Noteon 08-05-2023 Wound Care Note [id number]#1. 00OTGTIFF [facility] Coding Summaryon 07-30-2023 Coding Summary HTMLBase 64 AooplsjeEHa4iPc+PGhl YWQ+VB0UCZIhV35pxLGq eR1rL0KOKPcCSdfsFUHL YMeADtYepuVxLX3smWYq ZXJu IC8+AZ6hBIYgAefmgHVw b0V8aUQ3N87xko4bIXcf wRW1PSAfFbQouxfub1hp kEh6RTqeQucbPpBa EOHbtH70YBI0xN27Do91 pAFteDUdt2xbuMf1DtBr ABWgNUC5bGhpWElqw9Nk FWMxF81ybRTvy2Z4 IGNvbGxhcHNlOyBlbXB0 mA4jIQapzlkjd7mxrpec Mxy6ei15tCKyz7Z6qEE1 P5OnasV3MTKsvKPl LnzdnDUWpY6udofwh3bb nbvjNxQrZPEwQHn0GYb6 EPFdcLnmUoOuVW25AVK3 OKIxcqQpF2WeTMSq xOsaQfV4s9F4Ny0CQ2JX TbypC0IXNJFWFUceePG+ QD84gk62W0MrAiweDgo4 UHSvPYC0lAE8gR8k XOHiXWgld6E4sJB4V0Ty kaRyxx6kx0uhNOSrWOiq F08pdKLzk1Q3JXNwyBC7 QBAgcIbkRgNcoL57 Oyc+SCCjaYulm9KcBbum d5aat9dlgFh0JkjkOIQn uuLqdGzlODP4k3GiCz0c BAPqwIP9iOC5zK3d CjPjNnW9QGjnU700GsMe tGWnMaydO22qY5EkhJY+ NLUrHcu9DRDjyMvlRU5u A8NnMHWmafenlNVo kKjlPR7qBXFtjnaqXLSz uN0yYEHmP2l8RiBbPlX5 OVcwG4CdJIOxveczNe81 mF6oIgRfOjZ5FXbj S1YsjlL1LGNzdGUmOKfi GIZ4V56il5M9BULhRVGz MSU0cTE5cZ9soUbslskd bGVmdDsgdmVydGlj WKkdBIrmH470FFJimIyj PkNvZGluZyBEYXRlOiAg MDMvMjYvMjAyNDwvdGQ+ NEDvJYU0bKxyCNMr nUWoADhiHk9aaCufsIxy MZ4tDXCpzpbrHYOwlT0m OYHmcCEdoMbnOH6zTHIr mogfd334YfOaNWP0 ZZTlsTGuL4JxfC3aBzRd CXLgAIWnV9JznFFgKBjr C256SCutPtY7IBSqsjHx A3NqJGFfbAhhZrL3 n4T0Lz9Bx4NmkuzeI6Bi hPPnTeNsMljnPYu2F4Et PjwvdHI+RQ67DVPxJY13 IAy1TAA7hGchTLcf FNKpJ3VxjJ1rAwCsWOOa ZGRkOyc+PHRhYmxlIHdp ZHRoPScxMDAlJyBzdHls RF9uRu6jPQDzBLMp jXdezJAcVaBtu3roZOAj KYeuIW4oeYvzJ9YqvXN2 KEXps8p4Rw99H04qH9Ta dXA+AXNkdBO4mIJ3 cE2lEwTiCfE6NItxQ775 BoEzhCIaWthyw5kye8up jJz8MgM7CYTaesMbnXqg JPO2f2CyMm85L21l IHdpZHRoPSIxNSUiIHZh dUnrxp5heE8jZd1+PGNv oWZ9aLQ6eK7nVrLyPuL6 FHujX953GlSwhOSj Yzzvr4etq8ctwJs2AkLt ITZnbdUhsGbeVCM7b6Pb La13C6YjlDyya4SxIlj1 vq77jZAfc3X1xCT1 L4XxECJpattdvJKxpJff CM9gQIBbnjlzOEYijM6j DZIaS8r9EfZlFcW4UPgs E9AbffY4RJZypKMy UYWnbPSIcD0iqqazy5fz fcukAaRfBYEwVTp9WEn2 MYSliQavQlYzXCH9AmO6 XEZ6mCSrpT7ucVeb yzxvzU3yVgo+XCK1oDMw vUNWUB6lEfusgIX+PHRk GIP1tEykCMabYKWqwG9e DKDdG1d6IsCnZaQ0 VAzoC3XqkiS4KTDmcXDp YGCwsFIDiV1ulswuw9rs ckffFkHfKBQqDZz0HGg1 LWFsaWduOiBsZWZ0 PfZ0NUJ6sWVivF6uiUno puckcR9iSqw+QmlydGgg AXF6QAk2N0SoKbc8CIXf hCeiKX4ujCBxLQsd Ba6xeKzkkDldDR0qKBJo osxmv535GfUcs1ybWQIx nTVhPIgeCVB5V02kz9T7 FQNlDNUaOPK9uHZ0 cT1qpBcixzxwvIUcjShw ciEafZjiNDlaRLorN514 HFGwwJabVeWnEVd4L5Pj Evf0PHQpgHfxFI7r lKAwSBedUo9jgIeohCqt KG1tQQQintpzx044TeVq c9niPBEueYCfNLznBBP5 E41qu3D9TWVhQZTg NHZ8eMC4tK1dnOuurzwv bGVmdDsgdmVydGljYWwt DCmzA285ZHSbvFbuDeRf zDl2Z7OhExd2VMIi mWzxNU3ryRDpMCxgBi5r wCtmuOdmFP3eGMEvvevv a312YsNon0vwTBWguLHn RArkNUO3I42ha6H1 DDCeWEAwRCF4vDS6aB9d bGlnbjogbGVmdDsgdmVy eWteMAmvAYedO864ALGw cDsnPlBhdGllbnQg YHnoNXh9B9RlUgixeKI+ UZ15YDOvWQ37vMBvjGHf k7dxaPl4ItLuCRFeEAX2 dRrfUHcqp6TbJHOa B07ogRQac0M5XSCvlIwc zLDxBcDcvIU0iG9yPVnv aqxyh0fhovaiVjlqj3vc hj88eG31V95gLGxl ZHRoPSIzMCUiIHZhbGln lk7ywO4oVf3+PGNvbCB3 wYM8bG8kWFRgHvI4AJbm Z002YbZisRLxFkgt s8pez6gmsUv7YhX3YAVy gpMmyYrlEVB1d7AfJz43 A13sOLuwNOLpGFLaXHDz VVAjdFklhl8faE9q Ii8+PGNxhJQ3oTC0jF0w BmQdWjP6SCqyM551FcRc pFOxCtxvS07hF9EcfXF+ SSYpEkh3NJLwoOsq OU0pzGMnIIyzCr6pBGI8 TbMoXhXwNYgjM3YlESTh dhzkzcbvkBB2ASFtBUMk zI23Re1jcDhkZMQm tYKYpF9buozsd1ryglee InKkOWVlMTw1KYo7EAXc jNhxJjFsSAD5ChX4GFL9 oCBmtL9abNrcolst qH0tD9NrYGTevlfiJc59 gI7xRpWiLtZ4WInrHvq+ F6XEWfqvZP8NB0kATXhj SzwvdGQ+PHRkIHN0 xNsaLKzhSJSijU9uJGTf U3g9YdBvWbW7TRruY2Oh JWDueadwWc14sA6sGoRt BeH8PFgkS8QphfE0 WPZdkJVwSWbzXXW1R28c n3V9CCXhEURhZPH0hUX0 iD8gpRzfxymvxSOmeQxj dmVydGljYWwtYWxp S874EUNdvGzpVzBuBcB8 TsR1ZnA3V1BzVmp1FLBr qFsnDR9fmZEeSXnqEh2h uVjczApyAF9tMIHq tiwwNYDzmV2mSLMrvRQs xHqmGX5bBCMmmdfqh951 WgCoKIO1PBRobZPoN2Eg dS1tHmTiCDIpWBUb U7UpoSWmEMroI014QShu DmB0CMUcjeRkE7BkYVAn mBfsFfM6c9D0Wd69GORI ZWFyczwvdGQ+PHRk GQA8nFaoHMlaPBEwoD9c NRPjE9f7HeEkCzL2IKjg I4XcHZYcyrdbGk51tK4o PgHaNoK3NDraK7Nm aiE7HPYwmJYkFWtyMZO1 J25no8Y3ZWBsQRSaEWU8 bKB4wV9xsTdvuneoyDTn dDsgdmVydGljYWwt XWxeK898ACEkkQgvYd6W XNA7L5VhMnj4GEUjoUnl BT0hcSGxSDfkUn4kyFok cOlyCN3gMGMirytw OKXilJ4tVKPtbTJelOid NV0gEAWjjlmkt455AhYt LGX0EPLgxOQkO1JjrM7h UsSjDFUrRWFrK4Jf hTLoARecP779KXoaTlI8 VKTbfqPhG3QmEJUuoEmk OlN2c7C3Hx1JMWultMX+ LO09ak92T7EyGvev Ftc9ZXDoVTN2cXN6xN3s IJDqRDiej5G7jCL7T4Jd fwEojp4fq7umUJPeOKkq N48zvSKoa1L2ZJTa pEW7MRKocIdmSyPrgL01 Oyc+UOAfkIoxl6WoAbjy a2ids8bcmBs8PqIfQLZg lfNglXhtAPR1o1Fk Qi77C64uMXybGKQsGHHv GTFmVYIsuJheta8faF9y Ii8+KJTvwNE9qVA0rG0o NlZnRiH7FQgeY202 RvDqzQGoBdbpb1loy6hd dHj4ThAoKNGexcYgiCta JUE8h3GxRg84H1SuqJrx t9FnUiv8qf23qIGr f3A5gCB9P4WdNUSiazch uHJspBzvXU5gOTShsxao PRRgwJ0iDMKlT7p7SxEe EeJ3VDssX0XqldH8 ZBPqeKTbZMKgnUDBhT1h qszfx6xkzudhYqCzHGIa LDv2CBd1OAJesIzuIyWk PSP2SqN7WOJ6fVAb yM1ynYyebjvkvF0nEbk+ JRj1t4gqvSNoIN4scCA4 HH71RE88vNCgj6X4eDN9 C5MrFVIipqdogmgb oHE8FCNqUYTmcY11Yc5p rMklYg3aEDRvPJR4SYXo sGViH8GgpV8tJmRuCWAl MJKnZ7FueOFfZBre M998ZBxaZuI0LKKwrnQm I1KfMMDaiPbfQcS2k3N4 Er1CSO95OD23YO57zNWk o2W1oSP2W2KcRKZc wmmsppninGL3USPwDKOp jX11Uz0mkJpoDb5qRJGo RGV9CBZfyWCtA7UjtP8h OiObWRThGINkM0Ae rFAjUUtaS523RDeyPrU5 QFJeryLfA8PeKUJywUie QdI3t6O4Wp6EJt37PO68 BU42dWTyz0E2eFQ4 K6HrBHAxojivlczygHT0 ZXTtUJAbsO51Qr2jpNsm Ig2hQTHfERB0VIFknZEq F2GjpG7uQyQbBAXz KKOrT9JxaJLhUOiaK630 BYnhNnU4SNNcriHlO0Dp MEHolFmzHmN3v1J0Ie2P CQyzjyo4B0FaOleg dHI+HT45TCGdPL03tSBh sGScg1sbcZm7XcWyRBPb GLN3hHygWBmkr3ZnYXQr E91jxCVhn4U3YLJn bGx (more content not included)... [facility] Coding Summary HTMLBase 64 PdposaksKLk4hXg+PGhl YWQ+UI6FGHVbD32vtUSx pD7vM1GRAHcBEydoAQJR LDkTAzLxceAiRY3khKVm ZXJu IC8+AL5zAUVwIkhciHWn x3J0bKZ3V50cgf3vZTic eQP2KWYpXsZawuhfo7kt zYi0SHylXwsbUnLx WHYwcR06XUD3mY87Ab12 mWBckDErm7vybJv5DiDx LXNkJBI3mKaaGQqnv6Ho JTXiO83fpXDfa1Z9 IGNvbGxhcHNlOyBlbXB0 gY3qUWjzdeqml0efongh Msc4am07sTOib2B4oNI1 N6TjcsX2CRVhoTDw MhmmhDMVgP7itbwmt2fg iolmWhFuOMJrOQg7TFb3 IBRaaGlzBeXlOI29ICB7 ORAiqaYpI7BkZCEe rLwiNjW9s5X4Uq0HQ2EK GuznL0XEYGMSBIuqzZV+ PG20qj94P6FiVwbnIvl0 MHKdCMW2hWM3mN6y FTOsWTtyr2U5cFU1Y9Xe qtMdsk5uq9noVMGsVKbo J74mjHLct7B6VSMucVW8 PYDyeYehMeYcwV18 Oyc+SJEzaZqmm2OqUnfn z6gxm3netQe9MiqaQSJn ljYzwEgpVDX1f7NlFx2c ZKYuwQW1rFP6jA9s QdDuEwU3ICaiT921RmZw nWVgUvwhU55dI2YdhXT+ HJUeWvg2ICJkkKetXF8c S8TzWQEdmrtfuUCn uMbhXM2yLKUlezdfPGCi bJ8tQSBtO3i5AlAsTlB4 YUyzP0HaVDLbuteuIr75 xW8gLoFcTbP5LOvq J1LhawR6NVRluCInKDag AKE7T25vx2X8FLQaZZBe RGG6bOM3lW2mvDoodify bGVmdDsgdmVydGlj UZvmRSttS370IALppLzl PkNvZGluZyBEYXRlOiAg MDMvMjYvMjAyNDwvdGQ+ RFYnNQV1bCybVPIm xWJvOCrbIj7mpRschNjj CE0qJKYexepmKYHxxW2j PFAtyYVzoFffPQ2oYYDh rrfut260SgVpXUO3 MJBcsFCjN0MbcQ1qGpJe FVEhAPPgZ6GqrPAnHGgz I814BXdsVjE3RMIyavWg J9NcDTMpwMcjSpX5 v7W5Se9Vw4FziegcY5Ym aREuEdIcQtveUCl3H6Se PjwvdHI+FG24HQBnXY98 FAh8KMY1wBknWRig EMSdZ3VuaJ0sWdYkLPIr ZGRkOyc+PHRhYmxlIHdp ZHRoPScxMDAlJyBzdHls WI5eZk2sCFQdYNNe gOsjgADcHzRdl9iwNLXc PAegGG1xsIfyZ4VxbQV0 JUQjm4q2Hu36B01oH5Qo dXA+WWCinZM9cOR7 rA2gDxLhYwK7AHfrD003 MnVndKVbIixez1rab1qh xFo6OjL3WCCoemBlnCkr XKU9t7MdVr97I45p IHdpZHRoPSIxNSUiIHZh qLusmy4mmQ2dYy1+PGNv hIF1tNU9pP5aQeLiGrB0 HYqaS490HjHkqKAj Zvdwl2qgc5felMi9HuFn PLSfjdDaoOxbMTE4r2Wl Vk70D2AcdIrza3MbTaz2 tv97fAZsp7X5iUL2 P4BnXABmqywsmSBugHhm ZG4wOBFxqyboRKSjsN4j SFSvU7q0QrCuJqL9GWhk B2YvufY1HOJacQNk BVWwqLSBqS0zpjvyp9xa xcalCfWnLMEbDNu4KTg3 KWHanOauTbZtKVG1HlW7 OKS4eTJivL9vuEwn xdsdxF6mThu+WEM6pHHn xTSBFC4gOusbtAN+PHRk HCM3zTeuPTozSWGeiJ8n IRKgN7y2PbOdKwK1 HZejZ8OkviL4YVBtoVDf GBZgbPGItV9nazmho5dw xqniDjSnBGDtKCs5OFs2 LWFsaWduOiBsZWZ0 JuM4VMH9gFYfpL9zyNxx ycbkwL0tSay+QmlydGgg AXU5PXq6W4EfYfz4AJTt dVfsFD9mdGKnYKcw Cd4kpIgemMlpBR0pUJMo nbezf067DyZix6muGKPd vWWtKWueSHD6L52zb0R5 SNVkYBIfKZT5mBI6 vH7paOnapfuwzODzpTko wpGeeKejEHhkGDyhX051 RHIsgWomLkUyPQs0L7Si Roz8NSFskJeeFG6f sFOkUDcrEf1siAwfuYbf ON8sVKPzpwcya141HgAn f0wpNILtpTXlSMgkZEP5 J89uq6P1TBKvYCQw WYX0zNO4tU1frJyquhae bGVmdDsgdmVydGljYWwt VBlrG767QGDseCrgMwXq rLw5R9GgNfs4ZEGu fUngUG3aiBOpKAadEa1m cDocgCemJS5rKUHuqddq x348RtPso5wsJQBfdNOc PQepZPA0Z77fq8F1 DMVwLKVvQRR7qCB4bD8a bGlnbjogbGVmdDsgdmVy uJgmPBcdWIjhS200OPSg cDsnPlBhdGllbnQg WGnxMWy8S7IdKftuwYK+ SX58ZXWhCE11zYJuiDHv e3qxrJm7ObUwXPIiWRL1 gUwlXVqnx4SuIOVm C15lvSUzo2I1AVZavIbe fKQoRzTemPQ9mA6zSUnp bdocp1dldnekDrbdc9mv fx66gV09U60cRBic ZHRoPSIzMCUiIHZhbGln du7waR4vLf6+PGNvbCB3 zWC6bZ7hHZCqIpO2KFhp V644NiDoxXBdAqeh z9zgb3bjvWc3LwJ3AVHg kdGomMveASX3f7QyMc43 M19kZRxcRNIvPYKlGCXs NYFtqXtslt3ivP5y Ii8+MWBycPV1iHZ4eB8d JbNoZmQ9ZWlzP353EfQu oLJaAhoyS66aI7IpgYQ+ YNKrBiu7VRNkrZie PJ7piSLlUHakGr8rTQJ0 ZcJhUmNmQJieX2DlYTMt cwxrktuztTL8EZEaGQXs hY31Km0gqObnYXIp mPZLaY2mqmqjb4eujvqc XuGhEACgCYw1DYm0XVFi yKlyLbLyAJV7NdL8DXM7 rZFfeF9muIccpeem fH9vL4ZzLAIfxwpfBx08 tS7oIrAfAiU6POieVty+ Z7DCDrotGR9JF4aNKIlt SzwvdGQ+PHRkIHN0 bXwtTRgxFMDkpR0yPVMt R5v8FrXcFcY7KEfqZ1Eu PQLxwlpwMv44xR2xZvXl HpZ8GLbzM4TxxjK6 PIAwlZRvDUezDLD5V08w r8N9IJHaLPRoZWW7wFA1 uO1umEqpdklkpDIblAfc dmVydGljYWwtYWxp G700JOKefVjeUwWhWpE3 UfZ6JuZ7V2FzHvo8PMTk bYdgYL3yvOZbQLviFo1x tIvotHhfZH2uTZCl dkuyZIKplR3dQYTimUMt fCqbIV2qJXOyckizq458 KcOxBUL0UTIwaZNuC0Bd oZ6cOtCcTPIdKXYf S3FpoNCiOOgfW222JOod LjG5IYWmngLbN1CpPWRl rFubYkP1h1R3Pb26BQCP ZWFyczwvdGQ+PHRk LYI9sNfgAYwtFSFblT6d THBzN7e8BdFwSrP5DVjq X6NkWVTcxnhlXz63sG2d QeHdCqB4KGmrP3Vl yuP4HCFjjBEsVAnwPHL2 F58sv0B3ADYzROAdPJI7 dUY6yL9goAdpdqzjvWEq dDsgdmVydGljYWwt BZguR820CTNydSfgHo7A BHW7Q8JoOtr6ZOAltIkl QR8dqKVjTPhiXr4miJnm mNshVN5oBKGgstsz MVTeeJ9iXSNyjKWbmMeh OC7gRAVauurpp658TbPn VTM5UIMxpZYkZ9AetR7f GiNoZNRzUOHcM8Et wECjTJkhX093MIohDmN1 IFQaafBjA9OpQGSlhXnr YvQ3k9P5My0RRJzcaGI+ QP87hb24K4KyYtpx Kdi7FGXwVUP4lTS9dZ4o KUXpDIekl3S6gQW2O2Ju rrZvtl3ih7dmOWKpDMmt Y15moXVap8D2ESTj cDU6NGRgsGafYaIysV93 Oyc+TNAlgGvqu3OdUegh v7zpr0obrCf0RqAgRVWb ykNpbBttHUN5o6Fr Lx88N46bXYjgICHoUSZb KZGqQEQlhAzjlq1geT9b Ii8+NHJnpGH1pNZ4jE3t FgXcNyK0LNmyA013 SbHvqEZtOcdjm6ojk0ti lOm0IkVfHPGdhuUfgCfj NYV2n8VmIv64M2CcvPrh k3XgQyz3bd05aVAj n7U2iMI6Y6SqLOLidoub vWCsgIkvLC3bEDRptrws PTFxsM0sTJQpM1z6AkJo RtX7JVlnB4LxztI7 LSKnlBMuBERqzVMJxI4u nmguc8okqdiuLgWfWYZg ATg3SOo1LYAxdIkyNyZq RKO9IuR2MDN4bSAa kN7izNdwozfydO5gRmr+ DZm9j0bicVExQQ4jkEK9 KJ03QJ01jXKky6P1gLW1 H4YpAZOoimxgjtpt gSF9NLXcUKIweR64Df7w rXzyAy6oZZOoLYB9TBUr xKDbJ9LwwV0rIdXuICFn UMZrN6QcpZMyVFdw H292WNmxLaV2HKXkeyOu Y8WrTKUjaMvxJpS8x8S5 Ln6XLZ90KH04YV17aTDd f0R6kWG3M2XrIFIr tlyfilqsjHK3KFBfEJEh zE77Fr5nhWerIs6dYFGh IOO4QTBouIZcM5MiwR2n ApHhWSZdMIWtG2Zf kLYoPPyqF398PKyuQlO8 PCFdghYdF9NvEYPgsUcf KfB9d1W2Sd8SIw61YD98 ER18iHYpm4I7uBD5 Q7EdUWLyciheabazgWC3 NGOuPKKpoX78Cq2nhSac Il4nTECqGOU2CUZxvJNs K0UejJ4sWwWoBZIt BPUgV8RxcDFbUVvbT943 ECzkIhK3BDHfyfMgK5Hc TEMbdAmkEfS5a3A2Hw3P UQtgdnh8G2PuThup dHI+VH52EPYgRT92aEJr qVFsd8oofLb9JqQyHWBx LHY6dEodFKyrq9OaSORh D58xtULvm4W0XFSd bGx (more content not included)... [facility] Coding Summaryon 07-29-2023 Coding Summary HTMLBase 64 TsaokcjnADg3dDd+PGhl YWQ+UF2JHCVfW06sgJIl aC5qG8BYHCgSFbvcLKUO VPwWUwUaulPrCV8wnTDa ZXJu IC8+AZ7nNUBjOchjgEYo u9P8jFU2J21obl8uPQwk gBR8FZUbMjOtbsosr5tt tVv9ZQdoZhwqSwEj FXZfdQ43GSO4cB77Gb91 mTCcvUDoc6brcJi1DiWd TPLlWXF1eVryPAcnm2Mf HEOpI90ouWJzm0Q4 IGNvbGxhcHNlOyBlbXB0 gH2bLLmgqfuws2dwhnbw Lus1br09aDBmu3D8dBF4 T5EblnK2VJXrkGSx DlsmyHHZiH2viytlf1kq ofwvYzBxFUGjCGb5SVo6 GJFnhVsgKoKnJJ84YKJ6 QOTndhYzK0AlSGJh cItmMhC8w4U9Yn7ZC4MT WtceU8ZHZZZOABtzcWI+ SX84gg94R5NmJwrfNgv5 FVExJBI4xZY9eA8q LLUhHHwtf8P0wKO5A2Yu kmXreo1dy9imEOCiHEnn Q64naLBrw6A1TITitYY0 VQUijCflNhWxhC98 Oyc+GCMblCcxr5OkPgmk p1cmh8hnqEc3XuiqENZq tkMdcXdlJTY4k6PbEc5u OXXexJB4yPO9bW6n RpZvPtB5HDbaD074MxCe qFBlBbzcW49wX7XwkSH+ IBVrDwl4BMSybXccUO5u W0JkYDQhosyzhILh qHsrIM0sFNDqfqrrPPAn vN9eWPDjR3q1TwSbNdP7 FYprX1SzSOFlaxnjEq03 mL6mMlWxMeE3JRok M9FistS3ETWvrNGlYGsj WNA7F56bn0E3RANhAXUt GHG6nID4rU6rlCyoelwz bGVmdDsgdmVydGlj JXhkFBhsO249ATMihIdf PkNvZGluZyBEYXRlOiAg MDMvMjUvMjAyNDwvdGQ+ NEFrDVU6uFfjVHOl cLUfRRfkZf5fvVqpcCxm CK3qPDQnwtulECZyxC4j FCZobJOlhYtbXB1aDAJa mvapg360WkXvVKX5 JJRfcWBcY6JhwV1sJfMh ATVzLYUrC4FlvSVkWUow X096AUgzXdC9KNXzdhXe V4DlXARdpYljMdD8 v4V1Fi9Eo5GqucivN4Kw lRImCjAdJswzJNc5S8Hh PjwvdHI+UC00JONsNK88 NAn5WWH0qWxoHSrb DRPoM3RxgJ7cTpIvFAAn ZGRkOyc+PHRhYmxlIHdp ZHRoPScxMDAlJyBzdHls PJ1dJe1ePUCzEMPo xNfnbEJkFbMwo2zzDSVj DKjeTL6ldJaxK3LcjDX5 CYJgl8p4Cv58K12bT2Hu dXA+JRLcnYK9nEO4 kL8dJxFtMqN6EFqfA476 NtDtjEMqRppgr8nzb4qa kWu2CzV9NLUbatVdjIgn EBK6x3MhRi65J87k IHdpZHRoPSIxNSUiIHZh oQovsa7llE2jUt6+PGNv hGH9hQG3jR5qQuBxImG8 AWewF959OzVldPLi Qscgi9isa5qqrOu6OsZh ZNTbfbEupWnfLAH3n6St Nm26U0AmdTryy0DvGhf8 go31oFXmc7F2qCT9 Y8TuMAUxtmizlNMbkCyl TA6nFEFuxjyyHMYhyI3z KPEvO6i1OaEwAoG3UVly K3WeajM0XLRbaKVd WZYykEYZoK4eoocqb3jy kyyxEfXfFDVlHGo4PQu9 ZCOleBrqJpUxPDK8BjS0 XGQ2aRIigV6akJmo entkoA0vLmm+LBE4lTEc sFGFHA0yVtzwxBG+PHRk KLP9uBskFDgzGINurO4g VOByC3b5UdUuKiR4 EIquV0UidrY3KFDvfPAu WAXonMQWeM7geddgt2yn xfqhRuVfELWxFZw0YUf2 LWFsaWduOiBsZWZ0 BqD4DQC8cUHczP5znWaq bbfxvZ4kPzy+QmlydGgg KDK4ZOh7H7PlAkb1GTQy zCdkVG2ynYFqXNln Bx9xvFphpTvoFP8hNXIf eiyiz585BsNnh2llFXRo tHVmSKimIZZ3D87qe2M2 SQZzPMOpBOT5aZJ0 oU8uqKvjueypkSVzbCxe apEtoKxhFXytJEtuU000 BIXkaHrzMhDpRTk7W1Wz Anl5ZRBayQyzQY4v vUYvSHzcZu2ppDosuWvd CC4gUTJfgamln119PpLe l3wdOQWbxHHzPUdkSRJ7 J26ww3O8SBNjGSIk EMQ7iSH8jU9hhUviinns bGVmdDsgdmVydGljYWwt JSpfW604KQSfzRfxMcWn vQi8R2TkNkn0GTDb jDjkBS2fgSKlQKnqEm8z sXtobFriIA0eBOPowhdu k884EwBpm1umTREjdVNs TIyzQIA6E17en1C5 JVDzQGJaUAW3sVT5sL8c bGlnbjogbGVmdDsgdmVy xSwzUAazZKurE358JEFb cDsnPlBhdGllbnQg EDeoBFw8S4ArQmhiaQK+ SI26MSExQG35tRYmtQFs x7ffzYt0GeHmLUDvELQ7 vAkbODhca6EhZRMl Z76caDZdt9F3QLEflZtf qHNzSaFqrIP0dO3eUOsy wtezo7hqvlthDwwsi4fx ax28jF38C05vFGnf ZHRoPSIzMCUiIHZhbGln cl6xbH6eZw0+PGNvbCB3 qQJ0gM0yXJQwBfD4FBop X750YmJtnJYhEeba z8jgu9auwGz9MyN0DLKp cvCxaCqhINO0j2KmQd89 W42sFMmgOIThPVJuPAQu LXNadIqedo1drQ8f Ii8+TXFkhRD4fEK0lB7t DnUwSnL6LMqpW786RlMf qFFoBdboL96dT6KzfLJ+ GVNtCpp3OAJuxUlo UU6fhTFxKWqaHm1hOAL8 HzKrGbXjSIkqY1EjCRVx ixliefptvBQ3DAKsBJVz lM48Fw5jxLdfNEBe fNCJhC5fnkcee4lcjmpu XbFzAYHlXRd4EWu2RGSz rFchKxOaRLB4DbZ9IXG7 uUEanJ2nfRbdfzlw yC2sK0FpCPMboysfLw86 gF1kQlJrUsQ5BJbmUqn+ P6VSMmynRQ1IM7sKXTog SzwvdGQ+PHRkIHN0 oVqpRAynERZgkL6oHCDn L7f1FiJkAuI2JBwoP9Pq QPPjhzkmOa05mV8bShDn EjX1AYiuW3DmbgE0 RPTyaEYjCGxkXTC5H70k b9W5IHMvKCDaYOY3dNE4 hS4yqGenwrmcoHBytDln dmVydGljYWwtYWxp R870NFMdiYiiKrPbMjE4 KnE3JaZ3U6FoVvs4DPVp pMqyMS7qgRYtBGteUt0z tQbjxAykBG4kNZEe mjseJMEetP4jEAXwaUIb aLcaVW4zPKGmdfunv238 XjVmPWX2BWTnaMQzZ6Ng fL0rJsLgXRVrUVXw F7MjpQWiBQnsW726ILup YlM6TDZpmzZaL8ZhPOEe qMqdUpB0b0I4Ll61JYNV ZWFyczwvdGQ+PHRk OBD0jIaaJDuqOERcuN0n HFBkS6q4EcRtSuH5SZki V4ZnWZGipplaWu75zD0z EoEfIuK4JCvlE0Wt zwP6KDHiqMEeOItgGOI3 D67ve4R4KVNpCTOpVWM2 qWU7oA5pwCkeyekgkJJa dDsgdmVydGljYWwt GDrsD873RCBwyHvjAu8Z KDI2D7TqJqq5DSMvzGho QM7weUWfQVagUe9ebRne yMsmVF0jXUVurapp JHIaiT8zKEMaeDTouKoa JK1gVRLbrwthu850TwQn CQP2IHCvcKVbG0ZgcB8b HsXcBUJqKTHzD5Du gYBhGUnmL804RUdjAxB5 MFSewjMbU1MxZIQcbFgt WmT7u3G0Yb4PPIuqaJR+ KS30dv25M1GcIgqy Vsd0KTIuDDF8nGM3qL7q JKNaQWgmg6Y1mYO9V6Mr osQhyl9aq5hjGDDhIHus A81fcHQei2R0NWIx yEB8RSTqrDsuPoJpvJ89 Oyc+QZPnoFlzh4UrJcov m6ffu1vjcGb3RmOwNOZu yzXhlOdwQJO1h2Bn Ty78L33pTVetCTCaJOXl VLBqXZUeaLuptl0xhZ0f Ii8+BNXwjYB9eZL7pJ0p JpMrWhR1LJkaT179 UlTkuQTiLxnzy3etz4kx yXu2HxUuWPCtxmEtmPwv YGU5y5BxLu09B1XjqBra a8KdPfd9qw87fCWz n7Z5iTK2I3NwYFFcdrhi aKRxjPogSK0lEAVcatdm ZSXvcQ7nDWEfW6s7InGg YmY1CEfvE0PxujO5 FYFxsGIpYHXkfKRTfG7n qmusd8kmdplaRyIyMQLk MWv4FRm7OROzfBvqPqWa BDG3NlS5XLE5hTOn vG7ttJaacsisqY6mKko+ FCs0i0kxfZTjSR9lhRR4 KM82NE13zHLur3V8gOA6 D3YsYXYtgznclfwj rXW1DOWzGCNapQ81Ch9b sPmvBz5jREEpVUG6OLVf bTAqQ9RsbN0dMiHpDLZk UIDrZ8PzhUEeBAue G811DJqfVwD1KNGilrTh T2ExLXVvvQjcZxM2f0B7 Xo0NDV73UA48WN21fNTt r6N9jTG2L3UiIFGb jxbqizaswSK8QQMuTAIr qT90Ci0laQbiBu2bXIBn QQT9EXUdkDXnI5YqwD8w DjRpYFUeMSXjQ7Mr tSYlCZczX629OQnzCfQ7 GITnkzDsK5KmRNDhwTir FjV0w9E6As3PLh12FN69 TP27wVQip7N8fQD4 I9GaGNNaytfvyipuoOW7 LSOqZETtvH73La5wkBnz Pa3qVFSyISI8SEAziPQu I5AnyC6cYbIjZEWu KMQnL5DwmLHtVSrlE900 PIeyDtL2IWMsihZaQ3Lz SNEohQqxDgB2g9X7Pj4I NZppsrq0O7CdWujr dHI+MV19DDGeBK42rWMg oRRkz3fryCb7SuLhEUKw EWY5lXmoGWqhc2LmJECh R05wlDOxd1N7OVSe bGx (more content not included)... [facility] Coding Summary HTMLBase 64 AosxiksnMWg8qXo+PGhl YWQ+BM2JJOFmR98cyBAv bM5mH1LPWIaQQtsnEWVD CDrWOoKuigYlPQ5ahNRt ZXJu IC8+UR8gQXRrWomwlPJx l4T7sND3G82rhr6vPFmc hYB7DYObJmDwzqbbk0lp zRg7SDpqTtgfIiNt FCJkgE62DTM8zP84Pg86 lJYinAQnb8khaJs0PwVk KXVjOLK8gEjxMWnyq5Dl BPVfF01nuSGkn8R2 IGNvbGxhcHNlOyBlbXB0 aX4dVXqqkuntg3jfodbq Ede2jl62uKPcr2I1pME4 P3GbfcN8QPWbzGMj EmyymUTScB1zxwgdy1wl iwpgLgDeNLFhASe1RPy6 OHEvcVcoJcFhFA77OTG9 CNCzfhXiG4YrNCLd lBcuIxV9t2X9Qx0MJ0UC FoegQ5ICRJXZPFmuxLT+ RC76ia19I6IbLlyjFpj8 JECjLQF0xLG8qL6t URUjNDtjy9U0qSB0T5Xf jlQryd6nk8flGWWcPBdf M51xkZKed5M3QXBwjHZ4 GEWdxZytKyYwtE99 Oyc+VOXgxWjqw1QyUolb d8cun0ucjHl6QxosUFVv qhUmcHzbBFB7l0VaUd7d AEZloFZ2oEM1xS8l UjHaMiW8JUhhA984QfLa mIVsKstkD92xY3EclVR+ YHQxBul8JPTgjEoyKR5h T2PiHEVgmffoqHMt oIukSJ3aAHPwkubbVARh sW7oMNXsJ1l8PeTyLnR6 EPoyG4TwCDReorkkPg24 qX3eNoFtOrX6QYuk L2TwniR2JSImqDDoOCjp FQL2E23xi6U1EOAdHZMj YJD4zOE9vD2hxRmyrdbn bGVmdDsgdmVydGlj BRofVJeyD304RYLyoYdl PkNvZGluZyBEYXRlOiAg MDMvMjUvMjAyNDwvdGQ+ BUJuOIS0aVwaDFTn qFNxZIlpTt5zyRaqvAdn VL9tIQMchjyaCLCxrT4a ORGimOAlyNzcMI8zLINl grfto030BjYaNXG5 MRHhuBPnC8TnfE3iUtEn YVHjCIHvI6EouTEnFKol G393EYszEzM1LHAhieCt G4IiKWBbdAhtMmR6 l0D7Bn8Dz0IcsmenN4Fp cOQxBpEgHwadCOd3W9Pw PjwvdHI+SQ54YNLdXP37 JPr0YXY9uVvsDJma WUAuU4PccE6xIdEsLLUc ZGRkOyc+PHRhYmxlIHdp ZHRoPScxMDAlJyBzdHls YO4eJy8bUMRgJNHj oUuscCLtXvUqv5oyPSKg BWneRI6lwAegY6DrkCJ8 HWYzo2q9Ll22X97zC9Sc dXA+FTLyzSL8bBC8 cR1uXuApLsI8NFluD831 ZgBllLSnUgtiu2ifo3ao tHs4SzX2PMRkpbWdaGwm HIH2m3ExAv17K44f IHdpZHRoPSIxNSUiIHZh bSgnyw1fgI1kNv7+PGNv fZY7nNJ0rI7iCmNvBvS8 FYkcP745SaRyuFTq Bfwsz1nhv4xbbDl4ZeRl FFGynsHbaTulRZH7o6Wc Ka09A3WmsZjnb5KlIqn7 rm98sSWhi7I9lTR4 M7AwCEMizsvzfRVrnMly EV1hDAOnnwsbELBccB6o JUAhA9o3LyDsUvK9QVhx I7DexxL7BGEzpAQv JRAypDIKwU5faadbg9qc lkmkLrGbMYXgCBd8NRh6 ZVFnhHrkWhRvCZJ1BnZ8 MSE1iLNdiW1vnCzd efzwnT5xKee+FQB6kYRu lVOMXH8bZptqwZK+PHRk IJD7yGpkBOfxBKVtoZ4v TRSgU8c6HuZhKrU0 ERdrE8LftjM5IRNxkERo EVUfwKYTaY1tnfgyq8zr hiemJhBoZNCyUWe2FLb5 LWFsaWduOiBsZWZ0 MdB7LFN4kZSwbA1bhYny ocbjqU4vMby+QmlydGgg CQH6VNz3I3UjQfy8UTTp zLbjKH3qxVCpGExx Uk2puWzvqZovLF9pIBWj apdpe680GlObf8vmYLSv gDDuAUdpOAD7S60tj9W1 NKAeZZJoMRQ8rDD3 sE2jvPlzmyehaTQvuYqo waYngIvhYDmcEWpwV207 HITdrZhcTeRxIXz4M4Dh Wtt7HGXpfJfdBT0n mNMdPAwfSn0gnTcihOrm HF1bNBTdjwmka775WhTa l2wuNCWcxLKmPFpvSJM7 P54si2U3LPNyNVLc OMS5sCH7uT1neVpfntao bGVmdDsgdmVydGljYWwt FRdsG544FLKdnJwnCsOx jEs7K5SkJvt1EGFx pDqlXG4xeSShWCzuNv8d mBcdzPheQV6cWCGiunjn a249VjDsg2erLGYslZTj BPrhUON3Q48vg1W8 KTNdCSYdYYK5kKX7eT8q bGlnbjogbGVmdDsgdmVy dSadAUsdTRkvE131VRUz cDsnPlBhdGllbnQg OUhkQIo0T8GqPrypiVB+ ZM36RALcVV40cMZlaUNc f6vvwPv2KaRiJGKlXWA9 oMplZEjwa9FgUJHc Q96tpWJtr6M3NAAiwEcq xNXxGwQbhAD7pW0uYEqw qmzef7htieodJwvgx8gf sv72oJ84K44bWUao ZHRoPSIzMCUiIHZhbGln se1oyL3jAr3+PGNvbCB3 gZA4aU5cDJKeJjZ7ZRon Z444SzFxrANgZqmn d1duu7tswKi5RnK3IZJg pcMbnYnnIZR1f9JxPl93 T96wKFfuVYTvINRyMWNn VRJwpEdugj0pqE3n Ii8+HZHjqIS9vVM6xR6t RtAkBbW8SFlkQ288CtKs pPXxTdekW70bA0QtgMP+ ARAuGog8TXNtgVuv CR0ubWOzHZiyTr8uMLI7 IyAnFrYrDYkrF0GnFHSd cvctuxuipAO7BMLbXKBw lO01Wi2eoBxxVUXf bQLKpX5juhcen5haqtvd NrYdEZKyPJv9IQk1MEQq sVghPfGnSMI0ApK1ZZI7 nIZmaI6jwHlvxoij uS8tU3OeETSmctmaMn37 yD0lRrRgYmO4OMcfTeb+ W4SQDlfiZW1BX1dPFCbo SzwvdGQ+PHRkIHN0 qHlzWFskASMvvL0cJNAj [id number] CFFcacsxDe69fO0rAbZq QgB7BTplU9IvaqV0 VATriRHsERjfBEI2K88c g3O5LQCyIEZsTPU2lSS5 cE7llPmecrqvhJGmvGym dmVydGljYWwtYWxp J477QLVqrYzuPiSwBzK1 AeB4DrP4J5RvHqx4CXJo oUhpQB9mbTJfHDmhOj7q jEdtlLntPD9qMSMz vnadZEHulJ8nBQMruTCr iDhgUD8bYTZfvuzmk260 TrYhETX9ITExmOWjY4Kz wH9tKpWoHYLnMBOj Z7XadKBjLStaB335WIaa EuE5JDXrmoCwG1LdRJRc yVmmMpI0e6W6Nd04AOTG ZWFyczwvdGQ+PHRk UQL9tWgeCCcyKXFmrB7y FOUfZ2b1YePhWmM7SBqi O5SjUVYczuveSi66cK5n RzCaYiK1LViyO7Ja kuQ5FKXsrXYoVNakLGJ5 T16of7C0GQAtGUFoOMZ2 eCF3uZ9mkLltlruqyNKu dDsgdmVydGljYWwt EEwwR744GMNdoLfnQb5M YNA0L6ZsXgy5NOIykGyh QE7dvMEgLRzqQi4bqLzz dJaxTN7jXMVbbpbd DJPscN8xBNZatRWqcSkf YY0rPDDwgrmmg381KuEp QOF8UNQrqWXcR0IwmI7n NqDuBBZzDKAxK4Au tXTpLScxK482JHhiCsW2 WUAdgvKzJ2DkGYWwuJcd KyJ1i0T8Rf2VFPvvpQJ+ PA79iq56Z1LnNbhb Hwi6CHRzCBN9kEL5iL3u QLKxPGzfr6F0aQT1D9Do zxXfcs7ir7exKOPmUBky D59tkECie1C5FBGo kNT0ACOvvGmwOnDebA26 Oyc+OGAjqSsan7EgRxrq g8kdk8zvsEl4EtFlYFMu khUhnOihAZM6m7Zv Hv73X91jNOqfKYPlDFLn TGOcMBIeuDzlpx8kkG6r Ii8+YSMzuQB7iQL2rM2g QmVjLcJ3YUqnY984 FsDleHMdAbion0sue8ly fIk3AuCvSLObuzJtlKqt YTN5s7CvAy01B7ShgQud w1BhEec1em49gHOn x0M8hKG7R5WsCPVylimt mCObyUzdUE0aWWFnzrwd PFJigZ0qRZZoP6b8KgLd JiD1OBvpD4QcurS5 BQPtfVWfWCWtaTFFkX8e dchuj3dsblmjYyVdRWUe RNa8SKm7KJCtwWsjWlDf VFJ0HaK6YSI5cQBe gC4nxMcdftuclA1vPfj+ FRg9y4lzbCIpLH0dkVK6 TT32KG53fSMqt0C0aOM7 C1NmWUZkqzskwkme mNA7KSXxDOObdR27Yo8l dKhdRq5hNQCcIPJ0EIXp tGMnK3FilF5uJpDvPEGj PBRtJ6YnwCSxLLhl B063LVjdUaQ9LXVbpkUd S6YhRZQkjGblWvQ2x9L9 Jm8LMZ06AT20JN03bLUi b0M6uKW5R4UpMYRz rtftiuwmzXF0VGAuCHEi mU22Jy6vxUifYy4fWEFj CZD8UDErlCHpA8TcgS0q VcVcXAIpYBQzF4Gz wMKmBHuwS872UBtxDtX6 LAJmmzJjO3BsMOSwpGls YlF5m6E8Cx7TSe36NV33 IQ48aGRlk5W5lIV8 P1NaNOHaydxjbujjgDW0 LEZsDBHkeB77Uw4msTjh Vo1iJFEgKWG8XAMzuMDb U6OazN9aZeGuXRVy KXDnF3CmcVWmQHlmG690 YJazTrM4XZVscqQsI7Ui WSMekXlvUyA2i1G7Lo2P PQozdir5U8TwCjaf dHI+ZS24XWEhJK99oWWy eGOhz2zzzKt9MgZzHMUf YGV4cLnqITtir8FjANJd P61atOIkr9L2SAHt bGx (more content not included)... [facility] Wound Care Noteon 07-29-2023 Wound Care Note [id number]#1. 00OTGTIFF [facility] Coding Summaryon 07-24-2023 Coding Summary HTMLBase 64 HvwebikwMNq3bDj+PGhl YWQ+RO5PWTCmT98xlMPx eT4nU6FURCxDBoppFAFF PHfAYaHfnxXxWW5nhIYq ZXJu IC8+XP3pLCQgXuybzKSs s7S4cRM7H06xmo2jYSyn dEF8NHJtKzWakxrru8hk fEm9AHxhAqncGkVo FTBwbN67HBQ4eD77Sg90 fOMesIZwz4jfoKa4SyAb HRBjMME7eYxbZYxgg3Rk XOCiX59pxVBaj1X1 IGNvbGxhcHNlOyBlbXB0 rP7eFHwdhgyem5rhxkhz Wcn9bp88jOYjm5X2dHH6 H8QlepN3NWLpjHWw BpuvpJUNoM0flemyi3ev tlnaKhOxEWEiWKa8NAt1 KOPudBqqHmDiGB03SAQ8 TRKekhLbT8MeDTVv kNumByS2y4K1Fw2PK7HF KjmfA4ABHZDFPPiycYN+ ZP21tu96M6YjLrciEyh7 OIQoVWW4gXJ1xN5s CUKkIXskl0O9pKM3N4Hm tfTdji9qo4ilVCOiACzp E08blFYbl5L6MEBvyXU5 AROqbOdaFvTifL64 Oyc+JDZatWtra7PcMndu q2dcv7xeoJd9DejnEYLt xgPjnLueIPG4d3HoGc6c OYRacOW2jSM2zG8g JeLbMlO7ZYyhW456QfMr kFHxCvriQ71zD7XvoHN+ QBOqAsl8QHLdfGumXX5w U8KwNLSikdchgBIt aVozVX0tZGPwxmmiVODe jU5uBEUzO5y2HbJvNhP7 OHzlS6GpCMEyavguXu68 wD7pOuRoYzI1ZQjn C0TvuxC8EJPshPNcPFfn HJH9E89vh9Q1NUCmNXMy XCY9oLA8zP7oiJnlpurd bGVmdDsgdmVydGlj SAnfDUvwG065TZEqwGto PkNvZGluZyBEYXRlOiAg MDMvMjAvMjAyNDwvdGQ+ JLWsHPF9kXvwUMGs aJBjKZbvDz4zvWcehSeb TK1xMBMnylqiKDAhyY2a TCNdpDXrkQurBB4eFNHw odgsm130PxIdYKB8 QHCkwMQgO7FhiK2gIhKf KATxEMFkO1ZulAEyHAga H662EUhlNaC8JQHeeuAq U3YbZJNrlGplDzZ4 r0P4Nc7Gg2SmwmqoG3Bu aLPkLzBlFxjzEYu3M1Tm PjwvdHI+BX22ADIvEP25 QEp2BSL8jYqlKUpt HRXpB9WhlD2dOtBoZAUm ZGRkOyc+PHRhYmxlIHdp ZHRoPScxMDAlJyBzdHls MY5pUh5uBQIqUALm rVftjCEzDvQmi7dnKXJj WYafWG8miQxoW5TkfMS8 LMOoz6l4Nt95M10dQ2Iq dXA+JNZczIW6fQY8 hT7mVhOyBnG6EUbgD370 SeQwlYQtBbcms6dxt8ib wPj9XbK7EWGbdaEldScw TNL4a2VgTm53W91i IHdpZHRoPSIxNSUiIHZh yCabaa8twH4lLq0+PGNv xPJ5yEA4bA4mLwHnUgM0 WHsaG418FuBrgDAg Kduob8rvv3fymCi0FzEt MUNeuaAlgHdfYEB3a4Fe Zn39O3IgxVbrf1WmJab8 lc31bXKus8D3yPR5 E5LrQLKrsdyqqPEouHod PL2qBCWkmixxYWFgxL3t TSCeY0k5VxAkYeL1RImu L5HtrjP4MSRoaMAg ZRLyvRYZgN0igiwtt5kl juvoBwJhFOQtYMj4PZm4 DMIhuWasVlXwJEE9BpG9 NCE6fCKmzX6wnWis wroycY9hGzp+FYU6hNLq fAZPDQ6fUxeaaCC+PHRk VTV0sGgiYLszGABpdN1h MTIwE1v0PeSxYuZ8 ULcqJ0FwbgW3RIGusGPz EAEmzNIRzI9uinzpz9pw bunyNtGnWZSkYNu8UQq7 LWFsaWduOiBsZWZ0 TcY6WZX4yZRirJ5taXqs soyuyZ9zZud+QmlydGgg VYC3GWl4T3HgNia3HXUl vLjrWX4hlWTyYArf Cw7vfOzmtOmtGE3iBUYf gqozg162FcZrt1ztWYSy dQAqZSumJOT5H15qg5B8 NPPuLIHlJWK0yVW1 mO0xhIphwmxvxQMxbLek jqOmkBshPBwvQRqfN561 RRFaeCseHrFcLKp5T3Vu Mki0NNCbfFevXD6k hIKuCPjrFw7xqRpkxVzr RZ5yWGUxcodso774ZhZy s5wpWKIzzDKbXIurARX2 Q88on6X2IFKcUSDz RHW9hRV6pZ8vdZkoztqe bGVmdDsgdmVydGljYWwt LEnhZ156ADTtpLczTaIh tBe0F2QpDca8AFWw zRbpYK8arZPcMGkcWl0o bMfbaUqoCM0rNUGwuosj k334UgUro9rsCYWgqUEh FSzjDFE4J06gt3M7 NWYmURPmZJK0dXA3sZ4k bGlnbjogbGVmdDsgdmVy eBwvOAkzPKngF789WDKb cDsnPlBhdGllbnQg AOyoVYi4Q4OsTgcfwFP+ HQ53RRTtLG40cHIegIIs m3briFw7DcZyZEEvORH9 zTnuYCwae5KaFCPc H91fiTQlc7P1LDCfcVyc tIWvNlWwqIA0gG1xLNci rsumy3pnksbzZvssh8zo xs21pJ45E04sLVua ZHRoPSIzMCUiIHZhbGln xp9bnT6tXh4+PGNvbCB3 uZD4zF6kLTAmBpX8TAdw W428YgQbyGXwZkkj t9ejq7ndjQs5OdK3TCDl ihNsdZqoITG4r0ElMc92 S07eARraSPQzATBvKBAk XFUlpVdayz8duM1i Ii8+FZWolBQ8zAW8sP3u PcPyExX5KBtbX600YoZe rWJmBhdiI82rW0YnwJR+ QXDrKkt2IOTwwWmh CE0hnOVoXAazRr6tGDL4 AeJsCeJbHRxtK4AaJVQi hwhdsajsoEW6TPVwEDKn nT01Iw2rmNnhHRFx fDTCiY0thyftk1nvjdvb WlSiCHEsBIi5EQy4XYHs oGgmYgZrXZT6PzF7AAI9 sOBqkZ7xbSivoyti fR3lP1QtPONjryadTy78 tR0vTzOlHbW9WYidWya+ F5JSYelxNM6FG1gLAZxl SzwvdGQ+PHRkIHN0 qNzdRGuoLKPpcD7jMKNo F1z6HcFwXgI5HQxjU0Hl ZEQlosjxAg18lI4cMnRq VeU6FNfxG0ZfqxY1 YYUjtGGaALpoBXU0H97o h6J4RQWgEMXrAQV5oFT9 sC2lcMjqsnayiXOtlLvb dmVydGljYWwtYWxp B483TAQxsVsiJhQzTcT8 QlH0QsL8I0TiJmb7LZJt bLhiUL8ynVToBMuyFm4d sJhulShcUW2yAVCq xvemCYEufL1gDCHbtDBc bNgjNA9aJCMlymyfc338 PgAsIBZ3BZMhmLYvC8Vm oH1kRtHhUWKxKQXf K2RryZJtJAahT691KQry GzS3FIHmahInK5BlDOTu cFogZdW2u7Q7Vo78WTWZ ZWFyczwvdGQ+PHRk IGC8uMpmISkhZPWljH2u JSOaK7x3NkUwByC5OPrd I7HlWGQldvjeLk55fE0j SyCzAgQ9HFyuP5Cd otL8TWWzcPRjBWjbZRT2 N98nx1G5CRCqTOThGXS3 gHK0kN6lkUpoqewrcPOn dDsgdmVydGljYWwt BQkvC854NSJizRirPr7K JSQ7F8ZgJkq4VWRbaOdh GN7wsJUuUAenJi7dvOcx bWhvKL6vYUFzfqky XXNbgS0qOZShtCDurWva VQ0pXHQbshxua342LkCl DIF3TLWomERnZ0YhsC7f YcBtCOVwQIFdC0Sx rNAwAEzzC578KXzfWoV5 GKYihrLkP7KtYHDcaMpt ZmZ3q0T4Tz4YFVclrQV+ RX92vg14W3BsKchp Zov8NSNyKLV0qLN2nK0n OSFuXMamx5Y6lHL8L0Cq lnKrxn9yv0ngSLIuAAnp X80skGLdr8I2RABf uWR1POPteMdiKhJzgL19 Oyc+ZLAgfGovy9WnYaar s6tkm2fuoDw5YuHrAASk mbKhpYsbAQD6u4Wc Wa04G91pPDxaOJOuFKPy HPWcGGFnsOlkfr9pgA3l Ii8+HFUvlQA9nKX8nR6s DkMrNwH3UXnoO470 QjUrdKRmMzeda8gds3rw oZk7KyKjMIPpubOocJms TOM6l5FgXr03E5VztDie s6IcBpp4ta01gFTi d6L1aXG3A5BoDHKjenwu yNXdhMsgEE4cUYVjgjbz IFZaxB1pMNVsH8j6BkIg GpG3IFauQ4UmvsT9 BLGamOQuNVSyxHHBaY3t xjvix0wjbddhTuFyRYDu JUc9DNl4CSPziAzsMbBu MQL4BmB2WPC8tUXz cG0ltNdvdoilvJ3qOtz+ ADh8v2epzBCbGC9wmJM8 CI90HI06xIMof7I8cBF5 P5IuHFNgvxrbcnzs hUF9YUFhBRKdoO72Yj9y eCobFa9hRZYtUWX9YUPn iSXbK8YfyZ7tItHtYZRx FPSsX9ZgiUMuWJtr N513UGftFrH0JHJuivVx F0FsJJBfsKhpPeZ0f8U7 Cs0TQP84KA23UR57cACl r2U5lIW0A5OdRZFj nmmltrqfhNW0SAWmHTRm cZ93Yp8eiRynZl2sVWCx QGQ1VADfoHLxT5ZrrO9r DfLxDYDdVTZcU6Jr xYNdJExiR022KDrnLqZ7 FVEhiwEtJ0GrEUPtzFcv BiT9d4V0Fn0ZRi18KK64 JK95qVVeq2N7rGN9 E7XfNZWurbuslkkegCX7 IFAbFUQniN89Bb6wgHfo Av0kZZZjQET1IIDolSTy H9FwdG4oJlGlAMAk BCEhB5LlbSWpJVtaX637 AJksYsX7BVNvilPoD0Tt AUYoqKvxPkS9t3Q1Co7X OZsauzm8T6WgCxut dHI+XL78GXPlXB20eMQi yAJwr7kwgOb3LgDgMAXy LKF7pDvoJFnef1KrUGCj H90ffVCud3U2LQNv bGx (more content not included)... [facility] Wound Care Noteon 07-22-2023 Wound Care Note [id number] 1.00OTGTIFF [facility] Coding Summaryon 07-19-2023 Coding Summary HTMLBase 64 QsttlhdoVCx1vCd+PGhl YWQ+PK6OJDNdZ62xgNYk zL1iC6XRWExBQyuhIJGY RCkRRrMremCsMQ2bvGFf ZXJu IC8+TJ6rEPQcKrbtuWCi n9G1vBM6Y58zfk3mYWmb yEU1RAAyWzOckxgjy1vh rBu3WVzuOyjwFzXy SIJxfA69ISC4sX88Fb94 zKTscCVjz6mzzKd6YaTr WVFsEUA1bFkmFPfcy5Ed TBGkW62lwJDhz3A0 IGNvbGxhcHNlOyBlbXB0 xD0ySMziqrgop6wlluqw Sum7if39xOSvi0R5dSJ8 S2AytpS8UCMmbIOd SzefbSPKgO0yykeze9zt cjglWoMvSMIuJVw5GEu5 EPAvqEtxThAfFC24ENG0 VANfwcGjR6RyDJJp hHgiSxV8v3W2Nz1NT7YC RdgdD2IDMHFPAIwvqVG+ BX02jx68S9XjOpgxEdw1 BONaMNE8iXT7bL5u WQPdUIarw9Z8jNQ6F7Rs iaGyym3vo2hmUUAuOXqv U84jmAPzq8F8VNYdcPX2 DYYjfKmaZhHccZ92 Oyc+RUKfaUxba9ZcVfim s3lsv9xznSl5XuwgLTWl owShaPslJEI1g2WdMt1l SNFnsFP0aQJ2fF7m OpGxNjE7RMruH059JvZa kXBqDkusK48nP8YbjWD+ VRDdAok6ZWBdeDfoFH4p S3FgTONzrtddbKTs oXihWM5kVNJcyxueJOCm qP2oEEBaW3m0LjGdHgK5 AHfsW7AqAMTgqtvcTg28 vT0nSsMmKaR0OVzz Z6FetjT2MJZcoQQmEFio ZZB0P26fo7A3YEPsBTCf HIB6eKC4bL0qbJpwdwgi bGVmdDsgdmVydGlj ZGmyDNlzU249CJWpwEyn PkNvZGluZyBEYXRlOiAg MDMvMTUvMjAyNDwvdGQ+ ZGTuTPG5bWeqPFTf uCSlDAisTk1uwPnpcVjn HQ4aPWSpduelAFSjbQ4j COYhmHIogJrmOK7cTQXh rtkem648AyWaKYC0 TWCnpGNrN6HypF7mHcZa HIOoIBLhY5VjbOEgLCuf P017HXzuHkD8IOOyjsIm I9SbSLHagOrhPzE9 j6J5Sc2Zm3CsrmixJ1Wp zTUyYsBtLiqvXBo5A5Hz PjwvdHI+VA61MVUoMQ17 ANo6QGF5kIguCRzp YFVeE6BajT2bSjUoANVb ZGRkOyc+PHRhYmxlIHdp ZHRoPScxMDAlJyBzdHls TV0xBg6pODQnBHIo aNfstOJwBjOzr5tgUOLn EOmdAM9qiFitW2EnoRZ6 FPJtz2q4Lz70A41bH8Yr dXA+RMJthMR2aAL2 dZ8aSwNjSzJ3DJznA939 BkYlgDNvAllqc1hnw5py kTp9FbU9UOJlgcVycElr TEU6b3YcWw00X55l IHdpZHRoPSIxNSUiIHZh oXsuxm7vnB9cSw2+PGNv mZQ9gAZ5vL8tScQkAbP9 FEdmY884AhVtvNOy Siilq4aqa2oqzRe8FySh VSQnftBzyGlhOMY0h4Ue Gx73U9EfsVaim5MiBqy8 oy74wQFxg2I9nTY4 H1CsAGTqyzlqlDGzvRrg LY1vGJPsffhgGAAkyP8p SMDjP6h1CmGtJdW7AHvz S7XugsM9VEIcyECg ENGpiDLYsZ1ubbxqu2it iyccWeRjTXIeAOl9VBx0 IWRleKdsNxOqJNU0NvS2 PES4bFJwoW7dhNhc qgdgpT7nRtk+TKW6uFFp lKAPFD3kImxoaLR+PHRk TFR7nVrtDGsuUSKabN7z YHKwP9p6RaQbOeL6 NHoeP3UlajF2SLHkrHJb GERqgPCTpK7nwlfbr4hz mpdaLqCwNLLrLUn6BUg9 LWFsaWduOiBsZWZ0 QyI9BQP9jMVkvY7dqGav hdpumY7nYxq+QmlydGgg BDV9GBj2B5QcGhq9ICGf tTwvMU1vrWJuXUso Gl9nnJndpIcfIL9rYXLs awlsi572TeUtd6qnPIMv aYYgGVtdUUP5L38bt1O5 ALMbHCLoCLY1pVB7 eQ9plYifzuemaNMzmCzq buMjnGlqLJftAKkoN799 LBQwhPymAdFbZYu1R8Lm Avm3EELzmZazIZ3o eKAeNTadQr4vxFcnsPur ZS8tEICxnrwqe996JsKl e0dmDHOzxPShLEivWNL6 E06xh7Y2GJTbZRZq OOO2bTP9vD0zeJxbqfef bGVmdDsgdmVydGljYWwt VUbmH947GHJlvClgXgNh qCj3I9AqNib7ICSc wBbwSX3wwVRlMHofAb0m hEwrdYvhIY8jUFBpfvjx m726QxLbi8yiELPfsDEf ZXwrMHB6F78zo9P3 YFFaBNWqRZG2uLY3sO0m bGlnbjogbGVmdDsgdmVy qWmsLNouITmjL914GAKr cDsnPlBhdGllbnQg QIfxYFs9R9LaDaylbGH+ AE81VMKoPG11sUUhoETg x9bqwRc1MsCiWWUdQSZ3 sZuxKGclz4FyDAPt C53gpJCbh5S9AMBjlEre eERmGbLceOG2zG0dHMde xeatq3ywrdppEpxsn1jh tz34sU91X83bZXrp ZHRoPSIzMCUiIHZhbGln vp7vmI0oGt7+PGNvbCB3 aBU5aX7jKVBzVsZ4MTzp U012BwPhlKVxDkkr x0dxx8qieOq3NyO9JNTp qzBcmBhoHLU0e8TuHx72 X66dIWuyPTNaAMNxQBGr TICnnDrgcu6rjI4e Ii8+ZZJpiYE0yYX5eS1k FiCrGyE7FOhsS904QiNp nJGoMuabH46mY1QgwUJ+ FIBbOss9HHZciYwn ZV9ibFJcVPddZi8lXYN9 UuLpFmKlEHjrN4LsWHBh adxckfxnyUL3ZAVkPLOl jE65Jq5tyAmjAKIh wWQTuA2ssgkps0yaiikv KmDuZVCiWEt4NUr9JQBx jCwgRbYbOVF8ZuC3GWK0 lMBwcX6ohNhkfzqf zP1vY4IvRNIfagieLf31 oH0zTvFxBpK4SGuhMhd+ V2OAYwxsWH6TL0jYMYio SzwvdGQ+PHRkIHN0 oYtqPRzyOEAubS6yLZXh N4e5GhTqTwT2FYadF5Pg LEFvymrmHd29tH5tFkXx RaC5XQfrR0RsxmW0 XCIanMUeHFucMFO2L79e b5E6OJHqWNPoZYB3rJB8 yA9itLbpdfnxmHSiiSos dmVydGljYWwtYWxp T189YJTdnXjtYbKyRgB6 NtT0BsI9J2HxLvc6VJPn tVlpRJ5srIKoALipTo3m eNtvxEyfZE7dTVPk whrpMXQssF3iIWZgpLHg nJqmKR0gRTLckprcn318 IdItWKP8ATKycBAaN1Pr iR0hZqOqFYDsCLOg M1RblHCqBKbtK066EWme IvA3DPKfjvEhO4QmXCPw jRcdWtX1l6Y6Ao97NGVI ZWFyczwvdGQ+PHRk FEI8cXatXGukOLGyvX9r ULZtQ1u1WpMnCuC5WUrf O3HzOHYvweieOg81jI1q YjAhSoL8GEdtW7Ab rsC7RUHhaEPkRWrgXAR0 T33hg3S3ZSQvZUZdZCF8 wKT7yX3diPwmaqwziZRd dDsgdmVydGljYWwt LXkcY747WUSebLjiEk6I IBN5N8CtKgj9RULedTyk JF8poDSnKXzrMz6yePql zKonFZ4oORAlybtj RJNsgO2mTTSvaILexSgl BQ1sAANchyoev969AlHj OXV5PFJmaTWqK6ApyZ0p QrTpAIDlKYItK5Me lQRhVQqrS648NGbwRgB9 EZWhxdXmZ7XvWYNmqQsw EwI7v9O4Wb3TWCcidCW+ VG89vl13Q1MbGrlf Joo1CFLqFCQ7iOO9lA6d DPZrUYcrw0Y5oJD3D1Wj muSxaa6qc4ofCQUtVShk H41ucBOgx4W9WMWg yPA2GJDueHhaGxGkzJ70 Oyc+UQYemGmwd8GuDjbh y3ppp7zauJx9RcEpBUXj vuSqdTicXPH7q2Xq Ak45F89vSUmfOZHcBNWu GCFtSHRpcRonhm5wsV0f Ii8+ZTAbqKM4uCQ7aI0x ImCkNkB1BVhqA867 HrTfpNKjMhedo2tiu9lk zZe9BtHfBSJxuiSqfOdt FKS6x5DoMp83H5GdwBzg c5XiKqm1gz89iPHz k0N1rTW1Q7AsDTKjcsll hLNeiTtzGM9hGYJejgtn CSZctN8eQPGnQ5h1SoZi IlO8TGwlM3HvolC1 SDZgpTLoFMCtdIASlO0c tmivc7nwhmclMdLiBERy UKs6WAf3TVTmkHyaGhPl QCH4BlQ3ZDB2yEFz oJ8vkIcdteptlI6vMvr+ CVm9g0rzoUBxFI7rrTC4 NH10FF50pALih8O5qYW6 T5SrOXCjltkkclib pNC2TQRtZXVmoT90Fv1l rQukGy7yKIWvYIT7COUq xDZzV0TleH0aGaOvXEWy FSRkN8OkoYXlCZip D753BQkoGaA8TOQmibAw Q5YtKXAwfFqiSeY0y9B6 Gk9NBX27QX98TU37eHHe k0E1mRT2C1SrSFBq lrzzlljexLF4UZOfUBUz xW86Hy0baLujRr7kAOAd QZE2ZTCxuFQlJ2PynI7j DjBlFVSjFTKnZ1Ct wRQdPYrvK725NEjnPqF7 VJZzzqPiG8SwHYUyvKpo SjK9q2P8Jo4XMa20NU10 YK10xAAlu4T3lDK1 W8MtHODlkrszqqufpYO2 NBIlXRNzkO04Im0ctRrm Uy4xFTYcPPX3SAKijIZq I1VzrY3dWkPoOIEh YOIfL9IrwPRaUGkfM103 XXwrZfM1CVLvhlSaS7Df RBIlrWmaObN7s5V0Qe9H NIwgomt7R6VmRnvz dHI+AT48WNLxME63tJUx qFHnq7czsQa8JnHgPJGs DTT7fVrdASnrv4CtNMBe A94kkPOvd7V7QUMx bGx (more content not included)... [facility] Coding Summaryon 07-17-2023 Coding Summary HTMLBase 64 BkiijztgBFd6tRz+PGhl YWQ+ER4OQUScR53pdVCu rV7hH6IZDHaYEvngOGVV ZRbGVtUytdEzEK9sbJKk ZXJu IC8+CR7dHIEvDckhuNDo a2Z7bHF6Q38jnx8dJHyh hUB1LNIfPiUxbgxvp6rr zDj2IHxzXisvGiCo SMFhdC70KUQ7eF79Rd15 vZObvZSeu1grsIj5KoSb MPUjWLC3fFfbMDghf0Fj GDXqO53buORsb8O7 IGNvbGxhcHNlOyBlbXB0 fF7oAYnvgapyk7nfylms Cya9zs05jUJsa8X9mGU6 H4DblyU0QSShyZRf LolovQZYrW7vcxinz8qj tehpJiGwJWJdFWu4KEm1 KBKdhBeiXdJmRV77RBE8 XSUmqeUdC3NfMTQc cBliOjQ0q5W0Iv1HO8CD LzfnZ7QVODFRZJlckNM+ EE72kf92O7WdRaqwEig7 LAPhRYL0gHB4qR1i ISImKTxpm7T2yIU1R7Th eeDjjt1ko3yhDEXjOMhx K21taUSdr6Q4BCWapHC5 KKOjbLrzPmOmgT46 Oyc+VHWmcLyjt7IlZvkc d5xxf9gfkMz4MpdxQMEr krPrnKbwXSX8r9ReGb1a LBYccMW0dFC4xD6e RnWdRbX8ISgqT064YdGh kVOmGwuwT29aM1YbvVR+ ZISiZdm7LBMpmIzdPJ5j L1GkCBUaildruGIw zVpkXO8kCHLbhgrdEXQn rG8rQMZkN1t2UoSqEvW6 KOmmV9TkDEBclwgjQc46 lH9oUtSpLxJ7EEgy F7NboaY1TAFzwMPtGAto BEL6L36ck5W4OBEqCYSy VGO0aXD0gW1sgPktszlx bGVmdDsgdmVydGlj CVpfPGdoZ732HEColFqh PkNvZGluZyBEYXRlOiAg MDMvMTMvMjAyNDwvdGQ+ UGTtCGZ3pXjlYSYo yHHdDFonOa3wnOswxCon ID3qNHVisodlBUAqfA7s UDQicMTsiYlgQE2rGXQj iuwwg887JvNpOTO1 RNAkiVOtI3UcjM1sMaHj YPOyTVZzX7AbqESsGZeg Q772GOxbHeL6BYYsucDr N7NdKTBrvByuKeC0 k5N1Vi2Zv0ZvbhphK0He dZHvMqFjOfixJTa2O9Ii PjwvdHI+EP31RWPiKA87 CMp5YWS7cSyrCFyg RHSzW3NpqP2aRxCxMGAo ZGRkOyc+PHRhYmxlIHdp ZHRoPScxMDAlJyBzdHls SX0jHh4nILCuKCTa oVsneTMtNrAla1rkOFDf QEpdTS3twJozL5MgqBR8 LGXss4t1Sh95J97qK7St dXA+XZDfzAS6hQA5 hS0vPnEwNoW9PUkkN234 BlTieGUdVovud3pqp5io gXp0NbN2IYWncfYmgUpb GGB5l3CeBz44Q27t IHdpZHRoPSIxNSUiIHZh xDbjeb4ukO0yFs8+PGNv aGS6iIC1pH2fJeKrIxL5 AHwlT464ZpMtlJSb Umfje0avv6ydsVc8QmOt IVPbbbMzmFpwJQU6c4Hc Re96W6VlfRamu0ZiSbw3 xp94cLMxc5M2xSY3 E2KaUHNpufymsIYleHia ET5uROWtnwhjVYRryL6b XAQeN8l0QhOgCjK6JDas A5MhiuU0REIumACp OMHrgRUQoF4dlmbgg2kp pcfcMwGfDZGyVCg1AIi0 IDZkwZyfBhCvVUY6KhZ9 EGC5rXYqbU2otNyh ftkboX4jQkm+CMV5dVKu vCUHSG3sWctnsEO+PHRk MZX2nPghTSsnUNJteS7m DDNmB2z5YfQwMkM0 PCimZ0PxfxN0VODtcKAr CTZelYAZgK5gbguro5dm xgyyIiNcZILqWXt1GBa4 LWFsaWduOiBsZWZ0 MuB3GFT6gTIfsJ8snTcn hpyklJ6qJdy+QmlydGgg IAU9MIv1V1GgIeo3NZWg kIlwQQ9vsYYzKBkt Xy1pxLwklQebPC3wEPOp gusaq963HaJts6hoWSVz gXPxSLcnWPO6Q63cq3W8 ZBEtVSEwMXO8tDS2 rJ5dvYrlczjedTRalGbl bcJuqZuuICnkTPmlM562 KBWkvJcdUjIcILq0F0Qi Gvc0OZAymJemRM4i aBJoGGerIt2bgQjtvHqd VM5hVJVpsrssf301GsRl o4bkDKOcdELpJVlmWND9 S82ox6P2BRQtPFIu NLF8fCW6rC5mfSgokixx bGVmdDsgdmVydGljYWwt ZYazH726WMUakGoiOtIk oOd4M2MfLrr4LVNg nLugMM2fgEDuPTfsHf2q zXaanZzdXF7hZVXrafwy t469KbNix2faFIYwuZFx QKgeGLT6G31ru7T3 GQGcDKPcRAB8pCF7oW0b bGlnbjogbGVmdDsgdmVy oCbbMLeiUYaeP496NGQz cDsnPlBhdGllbnQg IRjhINw9T7IwUyaccXD+ MM62RPTiLE32dUVduHZo d7kmlBg3PySsWKWzNPS9 xWllAEymr3NlHGCk I54moOCbp9R4CGRubEjy dJHcIzZptAX3oV7nXEbc aovzd6zuewyyYjxbv6qo zb20lU94W05rAWko ZHRoPSIzMCUiIHZhbGln fo6prI8aFu5+PGNvbCB3 bQS1aO5dDDAoUxS3VWps K067NwAqbUNzLacv l2ojq6omoQl5SkI0JOPu bfIftHrbVIC1y1SeHj81 V74eSDewWFHhMVOcLGNl PLKlvKrrqu4blL5r Ii8+DSOljWK2zPG9fC9c FeZuVeN0SPxsL399HfLo tCQyShdzW27uW6OhoEI+ MFJwBfn6PKShzLrt CJ1ysUEsVXclXo4tKKL9 BcUaIrRvDEzoR6MeRCHr fxlbizamjKJ3SIBpPEYe sE53Jb6lnHtfCWQt uOCCmT6qweuwr5jqyhnc MdXmCQIgFIa4JYq5XTOg gBowUeNxBAE2IfT3CIH9 gVEnjQ4myQojifyz uN3aU8JmZMClkvweAa06 uH8kNtHkKzU1ORblHeh+ I1ARPraeSY6RB5fROWax SzwvdGQ+PHRkIHN0 wMqbLWfgJDFtgK3sJJNt A6v8MnMkXdA6BCluC1Zs VYPpgmxmOu02hW1kCfQw HbW1SAebX4YqpnN7 SRTdzQZjPWrjNCQ1N72j w0W8KFEdAKXjGNE6nWA4 cQ1exSpiyxigzNYglAlt dmVydGljYWwtYWxp V209XQRnkWlkIhYwBgT1 PiC4ZrW9V9KbSwb6NDCc nDleRZ6knVKlGZqlEe4a vFnfnNudNG7uSAHq isitKBTjdL8rHCBhtNLb kBphWT5kKAXmisatd079 FfJzPFQ0VEJajNIuD8Yi wU5dEdGeUYJeBXKn R0ZqsPXrAXpeI944EThe GoU5WVGecnCyN5SqAPKw zHfgAqB6e8P6Vj01SXUG ZWFyczwvdGQ+PHRk PAX8fAdnFOwrNNOasC1n UDObT7s9ImHwYwJ6VJsz H3ItATAdxdoeEv79wZ8r SdPeYhJ8LPqqK7Ge zhX3TXDieSYeOYqdRGX1 A29nu6J3EKTmCQPyURY3 qHV4sV4klOsrymwjiYDg dDsgdmVydGljYWwt MNamS840VAHfaNduBm6T YSK7O0IhWui3DWCzhEky JQ6krWGoKDftBw8taHol kNtdTE4nGNQhciaf BJNlbP7wVOOrmWAmfYth CH9dKWTfjlfbm952IpIc PFU1PKXddQHvE9SloB7o WsSjJOQiEVAaH0Cb zPTqZJoyO306WGtkXzI2 TNKdvcFgM3ObHJNllUyr VwK7z0T6Ye2NSYklpMM+ IW70zl86R0AkDpsm Kzz0SMJxMZM8kXW2jB6w NZFiVZynk1S8aQK0U9Lo chZjlc3do0stVHWfIVif P35yuRKon6S6IUBo aUR6TJRctNpySsTwsH68 Oyc+OGFygGenw6OvFeeb k8suy4iisWm6RbFgDDPx nmJgjVhhFNO0s1Bz Eh35W71yTAlkQZDzIWGq QLDqFPNmjVkjyp3vnH9e Ii8+JNRkhDJ5ePS5lB2i XkUyFkT4PRnhQ388 FcWcmTEwVzvdx9qni6ye cRz8PkElEIJpnvDwxBjh YRP6h4SkWs80W1MrpGai d3RjJvl0kq69uUMz w4Y7uUQ1T2FkYMXjjrji mROdmAbpUB5oGBSbmefy IMAhvP2uPTShL8b7UyWu KeE6YUvpY8LgaqY3 KFFgpYEwEEGwlKUOqA1y othpy6eqssmdJwHjZGWc DWg1VLf5IYZraJbsEiNe VOC1HuV0AGS4yREz jI2ueZecshlkjY2hSut+ OTh0x4xpcZWiGF2lkKJ7 XH33FC21oGOow3F0vXR4 Z6NiKAIugukdsymr gTU5WCKqXNKykO62Wi4r zIauGo3mRWFlTZK7NUFe hSPkY1SyvC3xUbEhMCEs EKObW8UqbIDbWFyb O060ABfnYqO9CTSpckQh D9LbHMBrmWssCoQ4d5W9 Oh3XAE98GE88HD07hXYm x9P9fZD7F3FyDJUw zrdvmqsreRO9WJExDUNz fX11Ut9qaZtzXj2jFUEw RDW0TNNmhAVpQ1IpcV7n PxLyLQCyVCPaS8Ps qGCkXKdsS626LMasJpO8 RINskvRwS3LgUZCjdWdo DrR6j8A0Fh8UTb10XZ42 QY62bFDes4R8zLX2 Q0UrTXTwknuauznraBW8 MMAyFXLhvM36Gm8mqXtn Fg3zIQSmEUU4TQXamEUb R2WqhN7iTnGtMOEq UHGuQ5PqkPUaSXamR553 IEayKtL6ZTNokuYqB3Sv LKAeyQnnZcV8y3A9Oe0R MFjteke9F9ScTcka dHI+NT32HPMkGY56pFSl dPHie3oiwAd9SzVoLCZm SHD8cWhjDZskx2BqACAj Y69teLWas9R9WTGe bGx (more content not included)... [facility] Coding Summary HTMLBase 64 LfxqqdnsFTn7qJs+PGhl YWQ+OI9QHCSwL29zzNYq cM9uS0SIKYqXOhbdQXGF XXjPMyUtyjVcOB7ipTPp ZXJu IC8+RE8iVEUaMoudkHPm s1O8aGQ4P22rks9jCGwj mMP4GLVjQlOletmpq8pp zSf3YRtsCimyCwKi BLShpI01RFA7mA84Vz16 yEXorEYxu3nqzYf4OjHg WVFtEOJ5fWybWNiky0Dy AWTwS90qeLGfh2O3 IGNvbGxhcHNlOyBlbXB0 vJ4oORicdbtnu6vydyhi Cyq7cm13eBNpz2W2eQT4 I3TyeuI8UCYczWYp NuefsYTOuC0txurzy3fl akqqWnYdYCVzMMt5AXl8 JZEixNycSbPpXW21CDV5 ANBclnEfA7IpDALa mIbeBcI6o2Q3Tr5LN5AW DybgX8FPOBQKTGfbqAP+ LL00fr80S8PzYtbiYjt7 SHGvKZX2qMR0dA5g PNApSCsok2F7fTS4M5Ur baKjhj8we1yzDKDnQBdw T28nfULyg8H8ZSWxhAH7 ITYfpAtuMuDopN16 Oyc+IUBkyXetr0EhExgr c4zdb5uvxPw2TgrlDCGf gwZomIycUTD7b3QiLb1z QVChiGC6dHG6pF8v KsHeMtK1SMfaH783VxSs pAXdConrC93jJ9CmyEV+ PCMvEap1BLZcoRgfJA5l P3MlEIEckfmstTSa fSftFN5gETTjaneuDNDf hN6cWBIcU7z9EjYjWzJ0 ESeiQ6QlYHTfampbRn42 hP9uVaMeKzB7YGwg B0CluhO5OQWrrNCfXLge SEX6J46og8M0QBWsELVn KSO3yKY6jL1mgDfsnpsa bGVmdDsgdmVydGlj BIepWHsgP483DKUapQoc PkNvZGluZyBEYXRlOiAg MDMvMTMvMjAyNDwvdGQ+ PMYmJYS9bIgoFEFx qYRfCLspYj8liFrdwVvx KO3fBDGynmxgSZGjjA4r SNLrrEIwvUuxIA1oECMc gwqxz666KqPaTVZ1 HCEfpTVeQ3FcyV0aRvLp EHTuLLUkH5QttFUmUDht B968OWdtBgR6EQIhbvIw Y7JsDYMmnBebQqP1 b9T9Qd0Sw8VwroklE3Qr hQHmEoStAsepUKn4F5Gs PjwvdHI+ZT20TQZhGO89 PYo9QBB5nWxuFKsg PUOyW3RdmY2hAxEkSWPc ZGRkOyc+PHRhYmxlIHdp ZHRoPScxMDAlJyBzdHls BW2jPe9nXQCyATYn pOtxqFKrZcTji2fqTMTc KCnmXF5sgIjoY0NgmIQ7 BYNyf5m9Ob91Q65sY7Ex dXA+HFChiJD8rDC1 nW9tGwHaMzP6ICeaG738 SjZjfQSfKmsvw6rtq2xd vCm4IlP3QPTbuxOgeJhv BMF5h7KeBg14T56y IHdpZHRoPSIxNSUiIHZh eGdmxj4imH7sDg8+PGNv yML2kHZ0pP3aDbClJlB3 JZyaP203QnNenCWz Qqytp8aha6paoFo6AxMh HKDtmbSlxXzzMPQ7t6Ug Xg79Y5RenUbxn2UcAqm4 ao51mDDdp4L0yPJ3 J3MqHMUysdnfcURpnLms LT5iSEZqdxavUACdaO0w MLAcZ4y8TdHzSoM7YKtz Y4XczfM0EUKefNBf WREiwPCWhW0phbvxv2ax swhpIqEsKLUtABj0PMr9 GTEmjGahYaCzNIQ1DmH9 RCM8iDHqjC7leRhb tvmmaG7iBol+CFJ7fIHc tHDZZT3gDecljJM+PHRk ZWR9qEmlLNmzCPHcbR8x STNoV0f8JkJyTvE7 SMbvL9QxhsY2XEYrkXLd ZDVixLPDrP2zwymcw7lx iywnPwUnUWZbNPk6GUl1 LWFsaWduOiBsZWZ0 DmW5XQK0vWFadK7yvGii ljsgkK6rXdk+QmlydGgg MWR5LUk9A9LmDep2AJTu pWckCP3obRVdKJmn Xr5blPojsRdlRW6yJCMa veiju767RjAwk4ihQPGb jUXrLBmbCQW5E77kj5K1 WSEdSHInKOP0gIU3 kN1gcRskhgaowZInuEuw tpRhsWlwANusBDnyA953 AYGvpDdzYdAySBd9Z3Zk Tpq8RYMtpKueFH2m aOGtDNtsGi3hqLxrxIdl OS8eQFOvzjepz876CjEv s3pcUWOiaOReWRnuUIW7 F06kj0M3KENvRDRk JFQ7nYM0vN2ipMiadglx bGVmdDsgdmVydGljYWwt ALcdQ203YWPwaTqoJgQc oOl3E9OtOuo4LKLs gDtoHI2nzODrVXxaZf8f fDybrAigUC9lUOYpjngc n721LcEeo1naUSLsnEMa JWctLBZ4L32fh1M8 RTWrSNQsYZO3eRQ9iE3l bGlnbjogbGVmdDsgdmVy dCfgJLiqDYvrJ804HRHg cDsnPlBhdGllbnQg UMmvDXp7G0IlZsqnzOU+ MT48VIUoKY93lSSdbECh q9augGb0MpYkGIWiYGV1 qXpbLQpwq6WoMADl S68mgGDvj0Q1HOVuwBiv oCAzSfGghZU7eI5nILhb xfiae0grfhvhFlyrh8pa ts76vF57Z19fUFbg ZHRoPSIzMCUiIHZhbGln vy6hxW3cVy9+PGNvbCB3 dJN6pO2oSMMuNsP7RJej P630RaFftMHxWkmp w8iql3bkmAg3KzO2NZDs knBmvRwfBQO0e3BiXk89 Y04xWFeaKVOkXBPlCTEt BKHmtMedck0jeF5s Ii8+CRZjuVG6uDO8jU1p AlImHdN9RQyjM946LfHh eCGgZivkA10wL4EhyQI+ LHLeLrk8ZFAmuRlp MM1ouUHiGDesTy9pKLR1 InZoQwNhHQzuO6CcWNWz hbvvvuexjEY8LRNzRZMh cL45Gi4jcOfrHJXm bCGMnO1tedscg6jkxleh RsMqWSSyYBc1DIz8YHWe hKucLrNjCLB6JyD1RER1 zZCtuV2wrKobuqgu aP0aM2EjXKLffxxlNv77 sM1iNqOiLxW4MJiiOpw+ K5LIZcxlHZ6ZK2lICJvx SzwvdGQ+PHRkIHN0 lVreMDbuTUJfmH6lQDAp T0s1VbHeKwQ9WMbiJ9Xk XHTueltnOt04gS6gGkSt JuY8WAxiF8ShnhB2 TDJqbPDuDXtjXIT6W97i f3B0PNCnKMInQXF1nLB4 dY1owAryizasoWPnuXsh dmVydGljYWwtYWxp C858DRShkDfgYiNzVlS4 ElD0LyN7N6YzFxl2GJIu eUfbBH1tvIAaZMulNd9x bDhkfYixNT4zAFFw kcknHBQadD7cWOEdaYIh cWddZQ6eCARbksacu806 ErUiKGH7OUIaoZSzW5Zc vN4yFpJaKYTeDRCo K2AgdBQsDNfkK343LZtc AoG4RHYaboCvY6WqQRSh rPhqYdZ7b6S6Fa58DCHV ZWFyczwvdGQ+PHRk KHJ6aYgdCYswGHAwgS6e TKAfW8l6TnDeKhM9VSjz Q8IwIGFwrbjjDw23dF1o QoZeHcM7VEovQ7Yz vpL4VQGtmNZyJMqyLFC0 U60ud1X6AQAwKVFgQSE5 yVX0pM8fdGoygzwwqHBo dDsgdmVydGljYWwt KSgrS819BNLlrYdpFu5R PKL1M0SwYbr1WFTlrYuo JE6frYUaGLwuZi2vvRuv cAmlQK1nJJQstefa JUSeiD8nQEWdmKXrdNbl ZB8fYLMahculo889PnVc KJS9DXDjfMFtQ0JafK7a WiVrEGRyKMFyZ1Fk zREoIHnzJ455NFnwPqT6 AMRjcxCdR9YxVNKqgAxm EoU0z9H4Wl5ITDmzwFW+ BX74fr54J3WqGeig Muv6XGLmRUX1kUC7xI4i OLEqVUqpv9F0mSH5D7Un nwZjlo3rv3ctNGLtUHwy Y83eiXMdt0G8YFWr aTD2LTCiySjaYaRelJ83 Oyc+MQRwmFspo6KtOcgh t1xvs1vmtKi6DxMdKTRo orXnkMcmBKQ1v8Mx Zf53T32kFAryLICwYYNg GLRrCJPcsNhxlz3zrE0y Ii8+PPZkvVA1lXB0kX1c MsVuLkV4WAsqK799 GnVbpNNnWmnlb4oid3eb xTx8KwCbYNPalxBtpAmh MPW4b6YhUl53K4ZzhWsj e3XuYwb6ts75bTNg e0G8iIQ1M0JnEIGijuvd sPDvpNemHI1eDXIzxmxh IZEezQ7dFFDpS7t1WnPm SrT9HZglK2TghvD7 RVFqgEMvDFYqpHHHwW0t lplzc9ktbtnmGyDnYZCy FYt3UHk1JLPbnYnbVfOo QQD5VoI4HRL7dIDh rC7bcTmdqsdetV8gYgc+ KPd2p5ngvCKwEO4ovHH8 XF45IF52wJTam6X6eQN2 W0OqDTQdhezdzuoh sPC5DVAcCWAzpI08Aq1l sHtyZb4tTHFsVZC7LMMn eOVtF9HoyR9gViUmVZVd AZMdI0RarSBpZCbf H616XVtdSaF1UCYeubVi C3HzQRZfcYhyBiZ0l2W0 Lq2XTX33UC73IJ72dMFf k0C3rNW5N1OnFZUw apsgtzazqHO2EOPgZDYa kR48Ai2ttNpaFm8sNYNn NDA8HREquJQcD0AufH7z MoKzAIQaIUYhN5Nf bEWnRRroA075NYaoSaL7 OENejwLnG7ZnOPInjXnj IgM0g0Q1Qr4JDt83WQ38 UB21oLGkq9R6mPE2 H7WlAXEjpatfpiblmNX8 XVSfRNHoiT76Rw5bgRba Xx1vFZYrONO3ZYIgyCDo N7ZbtF0mVaRdWDWd SBYyF5TkuNDiVBjvT411 ZIhqIzN1TBXxixMtO6Nj NBXypFkkRmD1m2V6Qv4E JXgwaum5H5OgJrtc dHI+RB19ZCDaMF18pYYy fIQsj5qrqLx9BmSfOILs HQL8mHfyNRnhr8AtINHe W69jgKNpu0S6LXSa bGx (more content not included)... [facility] Wound Care Noteon 07-15-2023 Wound Care Note [id number]#1 .00[facility] Consent Formson 07-10-2023 Consent Forms [id number]#1 [facility] Outside Records [id number] 50#1.00[facility] Coding Summaryon 07-09-2023 Coding Summary HTMLBase 64 IekanibxOBh7zQp+PGhl YWQ+LI0PAJFmL02wwCEe xE0qT5GGBArFAvomISAV EBlVBjIjeiYhDA7dyRUo ZXJu IC8+SB6vCFSeBrvsaPPu f8P5bFT9P58nrv2hGHke uQV2GLRkIlWyjpjbk1mb rRy2CNcqCyybAhTn JQNofM01FUQ5bA94Lr98 oHZrlWKbv1whaEf7LeHi JJDyBZT6kVejVLjpo1Zn WLUnP04qdCXvg1F0 IGNvbGxhcHNlOyBlbXB0 oX0eIBwiafbxk0gvjnht Vwx7jm68hVInm2P0bML0 P1YxtyI6GGGvgUNq WorbsWLAcP2xhtvqs2yp qfqfDmJrLCAaUNa8LQr2 KUPgiKeoWlDnDQ86MOK5 VWAzpzWnL3FwDUEl uPxiEmP4a8X7Qm8AA5PC FnlfZ3LNMGQXIXonxYW+ RI72qh81N5LbRdzhAwp3 KSKgXUN6mVI1fQ2m OSNhKOmfp3I9uGJ8I0Xn quEybg5iz6xzHKFaAAiv Y34afZBhs2J4ZHHxrUA2 HXRqlEpfVsWylX03 Oyc+HXAfoGrfk9DkTbaz x5daj0ryrLi9RjbsLKLx tqQwcGpdERR2o9LyTt6y CHCnsPJ5mZE4kF6p CoYbCpS2NUzmP744HmNp gQZvRyhaM90gV8QcnGJ+ BNHxYzb8ZQEbvYqyYA8i N7ZnNFQquissaZYr mWgpRS4sFAJizoqhZEOx vY5gANBvB1y3VvEzMkB5 CGhzI1ZhUDApopjtJh21 kP8cWxZvIhP4TBxs H6LymfQ3YPPvxZHdSRia DUK6K78kv4E3NLQhFLSx KZU0xMY4sZ1pjLxogokb bGVmdDsgdmVydGlj YYuhYWxiU264UFXbdVeh PkNvZGluZyBEYXRlOiAg MDMvMDUvMjAyNDwvdGQ+ CSHhLAD1bKczZUWe sGYhCSrqJc6vkFoijIxu XY3uTWKqwnxlVYSzkP0p THAewFTzcQhaTM5vQOWs irvvt632WgApQRK0 BFEcyNZaM2JtdJ5hDlTx RPIdIPEfG8TxhNWwXUfp A556UCujEdP9QQPbjyFc O2AcUWCggFdwEnD0 j6G5Ds4Oj2RwkflgK7Hs uRXwDdOlOovkGBn6D1Bx PjwvdHI+DF22QDZgAT80 HCh1KHJ3mSnlYWxq DYHxE2DufV0bUrVxLDKi ZGRkOyc+PHRhYmxlIHdp ZHRoPScxMDAlJyBzdHls EG0iRy9oOPHuPZXx fMbpdJJdRyXqw6nqMYZx XDzbVH5mqDriM5RnfUL5 MHDhc8m2Xj50O18xY5Dv dXA+KTYghYG3jUW7 fF1mMwZlBhF3ICoiZ384 LeUulQSqHuvhk2gfj3in qEs7MfZ5YOPpmjWudJzc CDU9f6IyZa46V32k IHdpZHRoPSIxNSUiIHZh bUwfzz7oiP9pPj4+PGNv zIV7iUN5lH7kNcCcUmF6 MCtiZ872NwFgbVSe Wgbcj3sug9dquWu9KxOf MYOcooEdxDtmZUF0j9Rm Je67S2OndJzly3YfLze0 wx04iTIps9R0pOI7 T6QaZXNllwxxnHUoxEyy SO6iSHSngbjpDJVvqA1q WHAoX9z0VsEzUzB4PTkn I2BgqiT6OGEvvWPu MWTeyMIUmX6bvdeme5jq wrcqDdFbPLMcIWl4DSr6 MJMhqOkwPlCpMLX9QwN8 QKW3cEBsnJ9esBmu hiskjC4nGox+WUG6yPFq fESVAT8jCeutyGK+PHRk PPW2cNpzFKxxHROzcW0e BQRiR8z9EoQpIoK5 PAixW3SqjqB6LTSdzLLz GYHceRRIoC8btlqir8gf yymeVdWaVVBaFQs9YZc4 LWFsaWduOiBsZWZ0 KzK1CUP7pTUrpX8glJtw pljupG1jFqd+QmlydGgg OAH7CWz5Y0XmGkg3XRJb kMmdIA5pgVCaTNcg Ui2bmZjtxCzpMU4cOPQo onkuc251LlWhp2uaLUZh dAGiUEwqMUL3Q42pp5J5 YWTnSVDtTVW8cLJ5 iD5xxTraiavmpHSjaYrr raVvlMimEDlmRQwqQ522 EAFuqJwmPuKhKDf2Y7Vv Dic8XIOruXdpEH8k xKWhXNjuWs6dxPhxtMnp AE8zXKAmqlfff382WlZb w8pvMNPqlXSyPJrwONX0 Y14fa1G2XTTkOBNb UKO1cCI4jK8fxVqlrvpf bGVmdDsgdmVydGljYWwt NMbpG955UPKhlUdvGqRe kIq0L9PuFqk9FVQc cXuwXN5emSRnWCmeFk8x rJiwlFrqKN6rCHAvzvnx k369AiSzo3slYOGdjHBz IJmkFHM1P04jf6U1 PDTpFFElOGI1dIK6aA3k bGlnbjogbGVmdDsgdmVy qGbxGCqjIIquA748TSJx cDsnPlBhdGllbnQg CMwvBQd0F4ZaJqcfoGS+ GR35YNLbTK92qNEwcTXi w0zvvHr6FmRsGNInYPB3 oBytJXsja1HlVHYj I00etSUqw6D9HUXatSmn fPTlXtDppFH2pE5kEAcz gtxrg3kbjfbgXensa9kh fm07mF28A31uPFgt ZHRoPSIzMCUiIHZhbGln as7mtR3sOz7+PGNvbCB3 uIH7qN7iGEKbAbB3DDxu U624ZyLqbSUkLkqm s1mln5ggzOa8IqD2JOAk buRycIcuGKE3t9DaKb83 A46cOFtiHJXtZGRpVORi CHAezZztdq8ecR9r Ii8+VMEmfKK6hSC2iP3q GtHjItX6VZgpK175MiJb hUCtOsnkO92yQ0VlsKK+ SVVgEax5NUYrtKfm NP5uaWUcUToxYn1gAWF3 EtYwMtOgVPtyR3BkLDVw ywzcmvurbBM1DSIyJGRo rE20Zt1ieGouJLPc iAWAfC7xpaugc7nhqqdc NaHbKUJlGWq6XXy2CHIz jGwuGuVmZDK0UgA3EQO9 gKRcbM9hfEvjufob rD0sD6DvTHYizjjuJw67 mS7jAgArHmA8IIbwLxb+ Q6KNBctmJT9AO6jLKSyh SzwvdGQ+PHRkIHN0 wEvxQPtsZSEzuZ9bGIGe C1c6WvBiOlQ8XRixU1Cp WUXljsysPc41lV2jEvAs YjZ2RJmvY3TyhrC0 MSTyiIRtVMzjCKS5O26t q7H0MNZlFGIuSMQ7pSJ0 uJ7onHokapxyeMJwhHwm dmVydGljYWwtYWxp K231HXEirObsHwJxEqC2 MfV5FlG7H3LdDan2SUOb uNwcRL6jtPFaUHxmPf6e ePzojVyvUL6tDHVf klmfRNSohJ9xJRUyqRYs yEjbYR4hKBGymkwxo228 EjWcJLZ6KEXtbLQbQ2Xt sT9sNrEyOOOfIMYg G7KupXFsQAcjS206GZmc SxC6PZGzhyDsV4VnNCQt pPlfVzA9l7R4Pz85PTRO ZWFyczwvdGQ+PHRk VEL9fJciEZznPHMsgJ0h ETBaP1z8AzYmDeF0WWpu V1UlRIGcjedcCn32qG8s MlYbFyC6YUxtP0Df lnC8PGRdlWKrADvsUQR7 E95jv5V0ETCdZSGqEZA5 lTO0bV1ivIvuomcbqKDw dDsgdmVydGljYWwt XHupB594ZQImpJmrGz3Z QVI5N9QmSoj3FMBxcEde DO1shXGnLHhsDj0gmSin xTrfFS8hTRCqajyz WRAtxY2pDDYgxUJesSsq NL8rIZEhdtfjd458UbVt ELI6ALTypYKdD2UfkT4k BbPmTUKpVPZfB0Lw fDWmFTbyH192SXvtAjX6 KPZmaxCtS0NcJZBioNcz CbX5b1S7Xe6VZRabiTJ+ ZT68np52B6XcEydh Nnr6DZRjJNV2oCM7nY8q OLCyLCbgm4G9pOG4Q3Up hfCruf7ac3jsJAAwJDku F56ppGExg0E0YNVw wAJ0RJYrcBomRnOqfG00 Oyc+QZTkoPivh3ZiZgip m2hzb0ekiGo6QpRmGMIn keQlvQueDXS0m6Yc Ur97N65xQFfiSNTgTCEw NLWhPLCeuUdxhe0duG2i Ii8+LMXgmRD6qQS5cQ5q LcTfIzZ7ZYukY242 SpGtnVYkLcsmh4hzm5in lSm2CmQnRMZwfjLvyKsl HBF8p1VgSn88F4YrcUue i8MiEow6jo90jHGc i2O1vQD8R4VnAMIcrfbj lWCcgEplQT5lNIRxbtly JPMwvH1lHUUkG9d6YySv FnP6UOeqD0IlujS6 ITFwcYHxKQGnpGXNeV2j cgeys6swmcfpEqMdYFCw GLm4ICr5GVQjmQwwBnTn THO3YgS3LBS0vXNz vA9alYwarbcjqI9pJoa+ PDr8f2mywSOaRO6ihGH2 UZ20UE88dDMes3N5sJA7 S3NwAYBljkicvzjr cWG7GTBlJDDujD98Hs4z lRscFo2sFPVoVAF0GHZe aPLdO5ZjzM5uEgCuHNHf FAMuR0NkgZGaONhc M206JXrjYgJ7ZIWgdeXz I8PhNLEbcRodYiJ4n5Y9 Lq6IMR09YD48ZZ30cXSd j6N1mIV3S7ShQAVf yvzxvznxbLY2ZSYfYIQx tU82Pr1oqYphOy8tPZDk IFT2VRWyhGIsU2EfzV8c NiOwEHEfGPTtS3Uk cCTyVQnvO729IWsrEwG6 QHYugrVjC7YlWHRxlJxl SqQ4s5I9Hw3LLl82HY57 FH05mMThc2H2dEL0 A3JaKRQmkzsqyumspBV7 VQAfWVHlyA73Uk9qkPel Vz3bLHWoLLZ7GQVvmOVp F8IqpU6zRtUgRCOx NUGvW8ExmXKgTDzxJ689 OPrnGqM9EJLhahSkH3Uh KDAoqXnzSmZ4z3L2Ac8D JNtspvt4Z9PlJzdy dHI+IL16ZRRhVY09oULe lUBml1mbdJl0PgNzFARj GEU1aFrwOSars4MdIEHv S83qqPQhl5H3ZKWz bGx (more content not included)... [facility] Wound Care Noteon 07-08-2023 Wound Care Note [id number]# 1.00OTGTIFF [facility] Wound Cultureon 07-03-2023 Wound Culture rt calf, [...] <=0.5/9.5 Verified Vanc S 2 Verified Normal [facility] Comment on above: Performed By: #### [id number] ####[place] (DEFAULT)[address] [place] [address] Ambulatory Patient Summaryon 06-26-2023 Ambulatory Patient Summary [address], [address] - Visit Summary For YRN RICARDO Age: 63 years Sex: MALE : 1960 Address: [address] [place], [address] Home: Work: -- Primary Care Provider: LESLY MELCHOR MD Race: White Ethnicity: Not or Language: [place]ian Health Plan: 1?[facility], 2?[facility], 3?[facility] Reason for Visit: Three month follow up for med refills Prescription Information: If you have been given a prescription for narcotics, seek immediate medical attention if you have any difficulty breathing or any sudden status changes such as confusion and sleepiness. If you or anyone you know is experiencing suicidal thoughts, mental health, alcohol and/or drug addiction problems; contact the [facility] 26/11 Crisis Hotline -Text 4HOPE to [phone]. Follow-Up Information With: Address: When: KAREN ZAPATA, LESLY To [facility] [address] [place] [address]/ [address] [place] [address] [phone] In 3 months Future Appointments ON LICENSE OF [facility] Appt. Date: 09/25/2023 1:00 PM Scheduled Provider: Lesly Melchor MD [address] [place] [address] [place], [address] Future Orders No future orders Additional Goals [...] Dosin.000 kg Body Mass Index: 50.14 kg/m2 [place] Body Weight Calculated: 84.047 kg BSA Measured: [...] a day (scheduled), 0 refills authorized Instructions: RU cetirizine 10 mg oral tablet (cetirizine) Take [...] TABLET BY MOUTH ONCE DAILY nebulizer machine ([facility]) 0 refills authorized Instructions: one [...] is caused (more content not included)... Normal [facility] Patient Handouton 06-26-2023 Patient Handout Infectious [...] and keep track of them. ? Take rfyo-gzg-wzplzcp and prescription medicines only as told by your health care provider. ? If you were prescribed an antibiotic medicine, take or apply it as told by your health care provider. Do not stop (more content not included)... Normal [facility] Outside Recordson 05-15-2023 Outside Records [id number] #1.00OTGTIFF [facility] Device InterrogationOrdered By: Rosalind Murrieta on 05-14-2023 [facility] Radiology Study observation (narrative) [facility] Ambulatory Patient Summaryon 03-26-2023 Ambulatory Patient Summary [address], [address] - Visit Summary For YRN RICARDO Age: 62 years Sex: MALE : 1960 Address: [address] [place] [address] [address] [facility] [address] [place], [address] Home: Work: -- Primary Care Provider: LESLY MELCHOR MD Race: White Ethnicity: Not or Language: [place]ian Health Plan: 1?[facility], 2?[facility], 3?[facility] Reason for Visit: Three month follow [...] contact the [facility] 26/11 Crisis Hotline -Text 4HOPE to [phone]. Follow-Up Information With: Address: When: KAREN ZAPATA, LESLY To [facility] [address] [place] [address]/ [address] [place] [address] [phone] In 3 months Future Appointments ON LICENSE OF [facility] Appt. Date: 06/26/2023 9:30 AM Scheduled Provider: Lesly Melchor MD [address] [place] [address] [place], [address] Future Orders No future orders Additional Goals [...] 3 m2 Body Mass Index: 47.09 kg/m2 [place] Body Weight Calculated: 84.047 kg BSA Measured: [...] day anxiety, 0 refills authorized nebulizer machine ([facility]) 0 refills authorized Instructions: one [...] Body mas (more content not included)... Normal [facility] Patient Handouton 03-26-2023 Patient Handout Nutrition [...] numbers. This can be done either in [place] ([place].S.) or metric measurements. Note that charts and online BMI calculators are available to help you find your BMI quickly and easily without having to do these calculations yourself. To calculate your BMI in [place]ian ([place].) measurements: 1. Measure your weight in [...] for Disease Control and Prevention: www.cdc.gov ? [place] Heart Association: www.heart.org ? National Heart, Lung, and Blood [place]: www.nhlbi.nih.gov Summary ? Body mass index (BMI) is a number that is calculated from a person's weight and height. ? BMI may help estimate how much of a person's weight is composed of fat. BMI can help identify those who may be at higher risk for certain medical problems. ? BMI can be measured using [place]ian measurements or metric measurements. ? BMI charts are used to identify whether you are underweight, normal weight, overweight, or obese. This information is not intended to replace advice given to you by your health care provider. Make sure you discuss any questions you have with your health care provider. Document Revised: 01/13/2020 Document Reviewed: 11/20/2019 [employer] Patient Education ? 2022 [employer]. [facility] Outside Recordson 03-25-2023 Outside Records [id number] [facility]-18-2023 Outside Records [id number] [facility] 03-13-2023 Outside Records [id number] #[facility] 02-11-2023 Outside Records [id number]# [facility] POC Glucose FingerstickOrder ed By: Serafin Shearer on 06-02-2019 Glucose [Mass/Vol] 70 mg/dL Low 75 - 110 mg/dL [facility] Phone: Interpretation and review of laboratory results Abnormal [facility] Phone: Glucose [Mass/Vol] 74 mg/dL Low 75 - 110 mg/dL [employer] Phone: Interpretation and review of laboratory results Abnormal [facility] Phone: Glucose [Mass/Vol] 64 mg/dL Low 75 - 110 mg/dL [employer] Phone: Interpretation and review of laboratory results Abnormal [employer] [employer] Phone: Surgical PathologyOrdered By : Serafin Shearer on 06-02-2019 Surgical Pathology Report [id number] [facility] ANATOMIC PATHOLOGY [address] [place] [address]. [place], [place] [address] SURGICAL PATHOLOGY CONSULTATION Patient Name: YRN RICARDO [facility] Rec: [id number] Path Number: [id number] Collected: 06/01/2019 Received: 06/01/2019 Reported: 06/02/2019 10:13 [...] with no areas of granularity or masses. Emr Trainer sections 1cs. tm Microscopic Description Microscopic examination performed. [facility] Phone: POC Glucose FingerstickOrder ed By: Serafin Shearer on 06-01-2019 Glucose [Mass/Vol] 91 mg/dL 75 - 110 mg/dL [facility] Phone: Glucose [Mass/Vol] 96 mg/dL 75 - 110 mg/dL [facility] Phone: Surgical Pathologyon 020 Surgical Pathology (NOTE) [id number] [facility] ANATOMIC PATHOLOGY [address] [place] [address]. [place], [place] [address] SURGICAL PATHOLOGY CONSULTATION Patient Name: RYN RICARDO [facility] Rec: [id number] Path Number: [id number] Collected: 06/01/2019 Received: 06/01/2019 Reported: 06/02/2019 10:13 [...] with no areas of granularity or masses. Emr Trainer sections 1cs. tm Microscopic Description Microscopic examination performed. [facility] Comment on above: Performed By: #### P PPVS #### [facility] [address] [place] [address] Photographs Curator: Karl Klein MD Nicotineon 05-23-2019 6-FC-Jkvbqxaz 3 ng/mL [facility] Comment on above: Performed By: #### C SYD PT, BMP #### [facility] [address] [place] [address] Photographs Curator: Karl Klein MD #### ANICOT #### [facility] [address] [place] [address] Photographs Curator: Cameron Calderon MD Cotinine 5 ng/mL [facility] Comment on above: Result Comment: (NOT E) Cotinine is the major metabolite of nicotine and is a biomarker of passive exposure when present at low concentrations. This result may reflect passive exposure to a nicotine-containing product. The half-life of cotinine is approximately 16 hours. Cotinine is metabolized to 9-JB-pzapceoh, which may persist for weeks after cessation from long-term or heavy use of nicotine products. Performed By: #### C SYD, PT, BMP #### [facility] [address] [place] [address] Photographs Curator: Karl Klein MD #### ANICOT #### [facility] [address] [place] [address] Photographs Curator: Cameron Calderon MD Nicotine <2 [facility] Comment on above: Result Comment: (NOT [...] positive. Test developed and characteristics determined by [facility]. See Compliance Statement B: Mgv[employer]/ Performed by [facility], [address] [place], [place] [id number] www.[email or web address], Cameron Calderon MD, Lab. Director Performed By: #### C SYD PT, BMP #### [address] [address] Photographs Curator: Karl Klein MD #### RAVIT #### [address] [address] Photographs Curator: Cameron Calderon MD Basic Metabolic Profon 05-19 (cont.) [facility] Comment on above: Result Comment: Aver age GFR for 50-59 years old: 93 mL/min/1.73sq m Chronic Kidney Disease: <60 mL/min/1.73sq m Kidney failure: <15 mL/min/1.73sq m eGFR calculated using average adult body mass. Additional eGFR calculator available at: http://www.[employer].com/multiple_crcl_2012.htm Performed By: #### C SYD PT, BMP #### [facility] [address] [place] [address] Photographs Curator: Karl Klein MD #### ANICOT #### [facility] [address] [place] [address] Photographs Curator: Cameron Calderon MD Anion gap [Moles/Vol] 14 mmol/L Normal 9-17 [facility] Comment on above: Performed By: #### C BC, PT, BMP #### [facility] [address] [place] [address] Photographs Curator: Karl Klein MD #### ANICOT #### [facility] [address] [place] [address] Photographs Curator: Cameron Calderon MD Calcium [Mass/Vol] 9.7 mg/dL Normal 8.6-10.4 [facility] Comment on above: Performed By: #### C BC, PT, BMP #### [address] [address] Photographs Curator: Karl Klein MD #### ANICOT #### [facility] [address] [place] [phone] Photographs Curator: Cameron Calderon MD Chloride [Moles/Vol] 98 mmol/L Normal 98-[address] [facility] Comment on above: Performed By: #### C BC, PT, BMP #### [address] [address] Photographs Curator: Karl Klein MD #### ANICOT #### [facility] [address] [place] [phone] Photographs Curator: Cameron Calderon MD CO2 [Moles/Vol] 25 mmol/L Normal 20-31 [facility] Comment on above: Performed By: #### C BC, PT, BMP #### [address] [address] Photographs Curator: Karl Klein MD #### ANICOT #### [facility] [address] [place], [place] [id number] Photographs Curator: Cameron Calderon MD Creatinine [Mass/Vol] 1.28 mg/dL High 0.70-1.20 [facility] Comment on above: Performed By: #### C BC, PT, BMP #### [facility] [address] [place] [address] Photographs Curator: Karl Klein MD #### ANICOT #### [facility] [address] [place], [place] [id number] Photographs Curator: Cameron Calderon MD GFR, Amer >60 Normal >60 [facility] Comment on above: Performed By: #### C BC, PT, BMP #### [facility] [address] [place] [address] Photographs Curator: Karl Klein MD #### ANICOT #### [facility] [address] [place], [place] [id number] Photographs Curator: Cameron Caledron MD GFR,non Amer 58 mL/min Low >[address] [facility] Comment on above: Performed By: #### C SYD, PT, BMP #### [facility] [address] [place] [address] Photographs Curator: Karl Klein MD #### ANICOT #### [facility] [address] [place], [place] [id number] Photographs Curator: Cameron Calderon MD Glucose [Mass/Vol] 80 mg/dL Normal 70-99 [facility] Comment on above: Performed By: #### C BC, PT, BMP #### [facility] [address] [place] [address] Photographs Curator: Karl Klein MD #### ANICOT #### [facility] [address] [place], [place] [id number] Photographs Curator: Cameron Calderon MD Potassium [Moles/Vol] 4.6 mmol/L Normal 3.7-5.3 [facility] Comment on above: Performed By: #### C BC, PT, BMP #### [facility] [address] [place] [address] Photographs Curator: Karl Klein MD #### ANICOT #### [facility] [address] [place], [place] [phone] Photographs Curator: Cameron Calderon MD Sodium [Moles/Vol] 137 mmol/L Normal 135-144 [facility] Comment on above: Performed By: #### C BC, PT, BMP #### [facility] [address] [place] [address] Photographs Curator: Karl Klein MD #### ANICOT #### [facility] [address] [place], [place] [id number] Photographs Curator: Cameron Calderon MD Urea nitrogen [Mass/Vol] 23 mg/dL High 6-20 [facility] Comment on above: Performed By: #### C BC, PT, BMP #### [facility] [address] [place] [address] Photographs Curator: Karl Klein MD #### ANICOT #### [facility] [address] [place], [place] [phone] Photographs Curator: Cameron Calderon MD BUN/CRE Ratio NOT REPORTED Normal -20 [facility] Comment on above: Performed By: #### C BC, PT, BMP #### [facility] [address] [place] [address] Photographs Curator: Karl Klein MD #### ANICOT #### [facility] [address] [place], [place] [id number] Photographs Curator: Cameron Calderon MD Staging: NOT REPORTED Normal [facility] Comment on above: Performed By: #### C BC, PT, BMP #### [facility] [address] [place] [address] Photographs Curator: Karl Klein MD #### ANICOT #### [facility] [address] [place], [place] [phone] Photographs Curator: Cameron Calderon MD CBCon 05-19-2019 Erythrocyte distribution width (RBC) [Ratio] 16.0 % High 11.8-14.4 [facility] Comment on above: Performed By: #### C BC, PT, BMP #### [address] [phone] Photographs Curator: Karl Klein MD #### ANICOT #### [facility] [address] [place], [place] [phone] Photographs Curator: Cameron Calderon MD Hematocrit (Bld) [Volume fraction] 42.0 % Normal 40.7-50.3 [facility] Comment on above: Performed By: #### C BC, PT, BMP #### [address] [phone] Photographs Curator: Karl Klein MD #### ANICOT #### [facility] [address] [place], [place] [phone] Photographs Curator: Cameron Calderon MD Hemoglobin (Bld) [Mass/Vol] 13.2 g/dL Normal 13.0-17.0 [facility] Comment on above: Performed By: #### C BC, PT, BMP #### [address] [phone] Photographs Curator: Karl Klein MD #### ANICOT #### [facility] [address] [place] [address] Photographs Curator: Cameron Calderon MD MCH (RBC) [Entitic mass] 28.4 pg Normal 25.2-33.5 [facility] Comment on above: Performed By: #### C BC, PT, BMP #### [facility] [address] [place] [address] [phone] Photographs Curator: Karl Klein MD #### ANICOT #### [facility] [address] [place] [address] Photographs Curator: Cameron Calderon MD MCHC (RBC) [Mass/Vol] 31.4 g/dL Normal 28.4-34.8 [facility] Comment on above: Performed By: #### C BC, PT, BMP #### [address] [phone] Photographs Curator: Karl Klein MD #### ANICOT #### [facility] [address] [place], [place] [id number] Photographs Curator: Cameron Calderon MD MCV (RBC) [Entitic vol] 90.3 fL Normal 82.6-102.9 [facility] Comment on above: Performed By: #### C BC, PT, BMP #### [place] [address] Photographs Curator: Karl Klein MD #### ANICOT #### [facility] [address] [place], [place] [id number] Photographs Curator: Cameron Calderon MD NRBC Automated 0.0 per 100 WBC Normal 0.0 [facility] Comment on above: Performed By: #### C BC, PT, BMP #### [place] [id number] Photographs Curator: Karl Klein MD #### ANICOT #### [facility] [address] [place], [place] [id number] Photographs Curator: Cameron Calderon MD Platelet mean volume (Bld) [Entitic vol] 9.8 fL Normal 8.1-13.5 [facility] Comment on above: Performed By: #### C BC, PT, BMP #### [address] [phone] Photographs Curator: Karl Klein MD #### ANICOT #### [facility] [address] [place] [address] Photographs Curator: Cameron Calderon MD Platelets (Bld) [#/Vol] 199 10*3/uL Normal 138-453 [facility] Comment on above: Performed By: #### C BC, PT, BMP #### [address] [address] Photographs Curator: Karl Klein MD #### ANICOT #### [facility] [address] [place] [address] Photographs Curator: Cameron Calderon MD RBC (Bld) [#/Vol] 4.65 10*6/uL Normal 4.21-5.77 [facility] Comment on above: Performed By: #### C BC, PT, BMP #### [address] [address] Photographs Curator: Karl Klein MD #### ANICOT #### [facility] [address] [place] [address] Photographs Curator: Cameron Calderon MD WBC (Bld) [#/Vol] 6.7 10*3/uL Normal 3.5-11.3 [facility] Comment on above: Performed By: #### C BC, PT, BMP #### [place] [address] Photographs Curator: Karl Klein MD #### ANICOT #### [facility] [address] [place] [address] Photographs Curator: Cameron Calderon MD PTon 05-19-2019 INR Coag (PPP) [Relative time] 1.1 {INR} Normal [facility] Comment on above: Result Comment: Therapeutic Range: Moderate Anticoagulant Intensity: INR = 2.0-3.0 High Anticoagulant Intensity: INR = 2.5-3.5 Performed By: #### C BC, PT, BMP #### [facility] [address] [place] [address] Photographs Curator: Karl Klein MD #### ANICOT #### [facility] [address] [place] [address] Photographs Curator: Cameron Calderon MD PT Coag (PPP) [Time] 12.0 s Normal 9.0-12.[address] [facility] Comment on above: Performed By: #### C BC, PT, BMP #### [facility] [address] [place] [address] Photographs Curator: Karl Klein MD #### ANJARETT #### [facility] [address] [place] [address] Photographs Curator: Cameron Calderon MD XR CHEST (2 VW)on [...] Shawanda Aragon MD 05/19/19 Final result Normal [facility] XR CHEST STANDARD (2 VW)Orde red By: Serafin Shearer on 05-19-[address] [facility] Work Phone: EXAMINATION: TWO XRAY VIEWS OF THE CHEST 05/19/2019 11:41 am COMPARISON: None. HISTORY: ORDERING SYSTEM PROVIDED HISTORY: preop sleeve gastrectomy Reason for Exam: Preop 06/01/19. no chest complaints Type of Exam: Initial FINDINGS: The lungs are without acute focal process. No effusion or pneumothorax. The cardiomediastinal silhouette is normal. The osseous structures are intact without acute process. [facility] Work Phone: Car, [facility] Incoming Radiant Results From [facility] - 05/19/2019 11:50 AM EST EXAMINATION: TWO [...] intact without acute process. IMPRESSION: Negative chest. [employer] Work Phone: Vital Signs Date Time Vital Sign Value Performing Clinician Emilia henley 05-14-2023 11:28-0500 Body height 190.5 cm Olaf Sheae r CHILD DAY CARE TEACHER-MEDICAL GENETICIST Work Phone: [employer] 05-14-2023 11:28-0500 Body mass index (BMI) [Ratio] 48.25 kg/m2 Olaf Zimmermanopher CHILD DAY CARE TEACHER-MEDICAL GENETICIST Work Phone: [employer] 05-14-2023 11:28-0500 Body weight 175.09 kg Olaf Decsorinophe r CHILD DAY CARE TEACHER-MEDICAL GENETICIST Work Phone: [employer] 05-14-2023 11:28-0500 Diastolic blood pressure 80 mm[Hg] Olafkathy Sheaer CHILD DAY CARE TEACHER-MEDICAL GENETICIST Work Phone: [employer] 05-14-2023 11:28-0500 Heart rate 61 /min Olafkathy Sheae r CHILD DAY CARE TEACHER-MEDICAL GENETICIST Work Phone: [employer] 05-14-2023 11:28-0500 SaO2% (BldA) [Mass fraction] 95 % Olaf Decistopher CHILD DAY CARE TEACHER-MEDICAL GENETICIST Work Phone: [employer] 05-14-2023 11:28-0500 Systolic blood pressure 116 mm[Hg] Olafkathy Sheaer CHILD DAY CARE TEACHER-MEDICAL GENETICIST Work Phone: [employer] 06-02-2019 07:15-0500 Body temperature 99.3 [degF] Serafin Shearer MD Work Phone: [employer] Work Phone: 06-02-2019 07:15-0500 Diastolic blood pressure 59 mm[Hg] Serafin Shearer MD Work Phone: [employer] Work Phone: 06-02-2019 07:15-0500 Heart rate 62 /min Serafin Shearer MD Work Phone: [employer] Work Phone: 06-02-2019 07:15-0500 Respiratory rate 16 /min Serafin Shearer MD Work Phone: [employer] Work Phone: 06-02-2019 07:15-0500 SaO2% (BldA) [Mass fraction] 95 % Serafin Shearer MD Work Phone: [employer] Work Phone: 06-02-2019 07:15-0500 Systolic blood pressure 116 mm[Hg] Serafin Shearer MD Work Phone: [employer] Work Phone: 06-01-2019 09:10-0500 Body height 190.5 cm Serafin Shearer MD Work Phone: [employer] Work Phone: 06-01-2019 09:10-0500 Body mass index (BMI) [Ratio] 53.24 kg/m2 Serafin Shearer MD Work Phone: [employer] Work Phone: 06-01-2019 09:10-0500 Body weight 193.2 kg Serafin Shearer MD Work Phone: [employer] Work Phone: Encounters Encounter Date Encounter Type Care Provider Facility Start: 12-24-2023 ambulatory LESLY MELCHOR MD [facility] ity:[facility] Start: 12-11-2023 End: 12-11-2023 ambulatory Shenjavier Barnhart Facility:[facility] Start: 11-22-2023 End: 11-22-2023 ambulatory Srinivas R Dolce Facility:[facility] Start: 11-15-2023 End: 11-15-2023 ambulatory Srinivas R Dolce Facility:[facility] Start: 10-25-2023 End: 10-25-2023 ambulatory Srinivas R Dolce Facility:[facility] Start: 10-17-2023 End: 10-17-2023 ambulatory PA Kelley Redmond Facility:[facility] Start: 10-10-2023 End: 10-10-2023 ambulatory PA Kelley Redmond Facility:[facility] Start: 10-04-2023 ambulatory Srinivas R Dolce Facility :[facility] Start: 10-02-2023 ambulatory Srinivas R Dolce Facility :[facility] Start: 09-26-2023 ambulatory Melo Reno acility:[facility] Start: 09-26-2023 End: 09-26-2023 ambulatory PA Kelley Redmond Facility:[facility] Start: 09-25-2023 End: 09-25-2023 ambulatory LESLY MELCHOR MD Facility:[facility] Start: 09-16-2023 End: 09-16-2023 ambulatory Srinivas R Dolce Facility:[facility] Start: 09-10-2023 End: 09-10-2023 ambulatory PA Kelley Redmond Facility:[facility] Start: 09-02-2023 End: 09-02-2023 ambulatory Srinivas R Dolce Facility:[facility] Start: 08-26-2023 End: 08-26-2023 ambulatory Srinivas R Dolce Facility:[facility] Start: 08-19-2023 End: 08-19-2023 ambulatory Srinivas R Dolce Facility:[facility] Start: 08-15-2023 End: 08-15-2023 ambulatory PA Kelley Redmond Facility:[facility] Start: 08-08-2023 End: 08-08-2023 ambulatory PA Kelley Redmond Facility:[facility] Start: 08-01-2023 End: 08-01-2023 ambulatory PETER Redmond Facility:[facility] Start: 07-26-2023 End: 07-26-2023 ambulatory Srinivas R Dolce Facility:[facility] Start: 07-24-2023 End: 07-24-2023 ambulatory Srinivas R Dolce Facility:[facility] Start: 07-24-2023 End: 07-24-2023 ambulatory Srinivas R Dolce Facility:[facility] Start: 07-19-2023 End: 07-19-2023 ambulatory LESLY MELCHOR MD Facility:[facility] Start: 07-19-2023 End: 07-19-2023 ambulatory Srinivas R Dolce Facility:[facility] Start: 07-15-2023 End: 07-15-2023 ambulatory Srinivas R Dolce Facility:[facility] Start: 07-12-2023 End: 07-12-2023 ambulatory Srinivas R Dolce Facility:[facility] Start: 07-10-2023 End: 07-10-2023 ambulatory Srinivas R Dolce Facility:[facility] Start: 07-05-2023 End: 07-05-2023 ambulatory Srinivas R Dolce Facility:[facility] Start: 07-01-2023 End: 07-01-2023 ambulatory Srinivas R Dolce Facility:[facility] Start: 06-26-2023 End: 06-26-2023 ambulatory LESLY MELCHOR MD Facility:[facility] Start: 05-14-2023 End: 05-14-2023 Office outpatient visit 15 minutes Olaf GOOD Work Phone: [facility] Comment on above: Cardiac pacemaker (P rimary Dx); Morbid obesity with BMI of 40.0-44.9, adult ([facility]); Complete heart block ([facility]) Start: 05-14-2023 End: 05-14-2023 Clinical Support Ppc Pacer [facility] Comment on above: Cardiac pacemaker (P rimary Dx) Start: 03-26-2023 End: 03-26-2023 ambulatory LESLY MELCHOR MD Facility:[facility] Start: 02-10-2021 End: 02-11-2021 ambulatory DAMARID Yousuf DENNISATUL [facility] Start: 02-10-2021 End: 02-10-2021 Subsequent hospital visit by physician [facility] Comment on above: History of pulmonary embolism; Hx of deep venous thrombosis Start: 06-01-2019 End: 06-02-2019 Evaluation and management of inpatient SERAFIN SHEARER [facility] Start: 06-01-2019 End: 06-02-2019 Evaluation and management of inpatient Serafin Shearer MD Work Phone: [facility] Ortho/Med Surg Comment on above: S/P laparoscopic sle ramon gastrectomy (Primary Dx) Start: 05-19-2019 End: 2019 Patient encounter procedure SERAFIN SHEARER [facility] Start: 05-19-2019 End: 05-21-2019 Subsequent hospital visit by physician Christian 2 [facility] Radiology Comment on above: Arrived [...] years Vaccine (2 of 2 - PPSV23) [employer] Phone: Start: 12-30-2025 Lipid panel [facility] screen [facility] [employer] Phone: Start: 05-14-2024 Adult BMI Screening Adult BMI Screen ing [facility] Start: 05-14-2024 Tobacco Screening Tobacco Screening [facility] Start: 07-30-2023 Lipid screen Lipid screen [facility] Work Phone: Start: 12-30-2021 Creatinine measurement Creatinine mo nitoring [employer] Phone: Start: 12-30-2021 Potassium monitoring Potassium monit oring [employer] Phone: Start: 12-30-2021 Thyroid stimulating hormone measurement TSH testing [facility] Phone: Start: 08-29-2021 End: 08-29-2021 Patient encounter procedure 08/29/2021 Office Visit Oncology Consuelo Delgadillo MD [address] [place] [address] [facility] Start: 03-24-2021 End: 03-24-2021 Patient encounter procedure 03/24/2021 Office Visit Pulmonology Teddy Fam MD [address] [facility] [address] [place] [address] [facility] Start: 02-14-2021 End: 02-14-2021 Patient encounter procedure 02/14/2021 Office Visit Bariatrics Mary Lou Power, CHILD DAY CARE TEACHER - MEDICAL GENETICIST [address] [facility] [address] [place] [address] [facility] Start: 01-04-2021 Influenza vaccination Flu vaccine (# 1) [employer] Phone: Start: 05-19-2020 Creatinine monitoring Creatinine mon itoring [employer] Phone: Start: 05-19-2020 Potassium monitoring Potassium monit oring [employer] Phone: Start: 07-30-2019 TSH testing TSH testing [employer] Phone: Start: 06-12-2019 End: 06-12-2019 Patient encounter procedure 06/12/2019 Office Visit Pulmonology Teddy Fam MD [address] [id number] [facility] Start: 06-09-2019 End: 06-09-2019 Patient encounter procedure 06/09/2019 Office Visit Bariatrics Serafin Shearer MD [address] [place] [address] [facility] Invasive B[facility]ric Surg Start: 06-01-2019 End: 06-01-2019 Admission to same day surgery center 06/01/2019 Surgery IP Unit Serafin Shearer MD [address] [place] [id number] XI ROBOTIC LAPAROSCOPIC GASTRECTOMY SLEEVE, ENDOSEAL [facility] Comment on above: XI ROBOTIC LAPAROSCO PIC GASTRECTOMY SLEEVE, ENDOSEAL Start: 06-01-2019 Subsequent hospital visit by physician 06/01/2019 Hospital Encounter IP Unit Serafin Shearer MD [address] [place] [id number] [facility] Start: 03-06-2019 Annual Wellness Visi t (AWV) Annual Wellness Visit (AWV) [employer] Phone: Start: 2012 Administration of varicella zoster vaccine Zoster (Shingles) Vaccine (1 of 2) [employer] Start: 2012 Colon cancer screen colonoscopy Colon cancer screen colonoscopy [employer] Phone: Start: 2012 Shingles Vaccine (1 of 2) Shingles Vaccine (1 of 2) [employer] Phone: Start: 2007 Screening for malign ant neoplasm of colon Colon cancer screen colonoscopy [employer] Phone: Start: 1981 DTaP,Tdap and Td Vaccines (1 - Tdap) DTaP,Tdap and Td Vaccines (1 - Tdap) [employer] Start: 1981 DTaP/Tdap/Td vaccine (1 - Tdap) DTaP/Tdap/Td vaccine (1 - Tdap) [employer] Phone: Start: 1980 Adult BMI Follow Up Plan [facility] Start: 1977 HIV screen [facility] screen [facility] Work Phone: Start: 1977 HIV screening HIV screen [facility] Work Phone: Start: 1974 Depression Screening [facility]ing [facility] Start: 1973 DTaP/Tdap/Td vaccine (1 - Tdap) DTaP/Tdap/Td vaccine (1 - Tdap) [employer] Phone: Start: 1962 Hepatitis C screen Hepatitis C scree n [facility] Phone: Start: 1962 Hepatitis C screening Hepatitis C sc reen [employer] Phone: Start: 1962 Tobacco Counseling Tobacco Counselin g [facility] Home BIPAP or CPAP Home BIPAP or CPAP Respiratory Care Routine Daily until discontinued starting 06/01/2019 [employer] Phone: Comment on above: Daily until disconti nued starting 06/01/2019 Initiate Oxygen Ther apy Protocol Initiate Oxygen Therapy Protocol Respiratory Care Routine Daily until discontinued starting 06/01/2019 [employer] Phone: Comment on above: Daily until disconti nued starting 06/01/2019 Surgical Pathology Surgical Path ology Lab Routine ONE TIME for 1 Occurrences starting 06/01/2019 [employer] Phone: Comment on above: ONE TIME for 1 Occur rences starting 06/01/2019 Immunizations Immunization Date Immunization Notes Care Provider Bhavna lynch 12-16-2013 pneumococcal polysaccharide vaccine, 23 valent Stv 2 [facility] Payers Date Payer Category Payer Self-pay 2019 Unknown [employer]AKOTA [employer] D UAL BENEFITS [employer] DUAL xxxxxxxxxxx 2019-Present [address] [place] [address] xxxxxxxxxxx [id number] 2018 Medicaid OPAL MEDICAID [facility] [id number] 2018-Present [phone] [address] [place] [address] [id number] 2018 Medicaid [id number] 2018 Medicare OPAL MEDICARE [facility] MEDICARE [id number] 2018-Present [phone] [address] [place] [address] [id number] 2018 Unknown [id number] 1960 Unknown [id number] 2.16.840.1.403448.3.579.2.175 1962 Unknown [id number] 2.16.840.1.547987.3.579.2.175 1962 Unknown [id number] 2.16.840.1.112400.3.579.2.175 1962 Unknown [id number] 2.16.840.1.039768.3.579.2.176 1962 Unknown [id number] 2.16.840.1.827878.3.579.2.1286 1962 Unknown [id number] 2.16.840.1.515953.3.579.2.1286 1962 Unknown [id number] 2.16.840.1.111667.3.579.2. 1962 Unknown [id number] 2.16.840.1.574929.3.579.2. 1962 Unknown [id number] 2.16.840.1.261884.3.579.2. 1962 Unknown [id number] 2.16.840.1.832126.3.579.2. 1962 Unknown [id number] 2.16.840.1.413806.3.579.2. 1962 Unknown [id number] 2.16.840.1.466686.3.579.2. 1962 Unknown [id number] 2.16.840.1.032162.3.579.2. 1962 Unknown [id number] 2.16.840.1.520539.3.579.2. 1962 Unknown [id number] 2.16.840.1.775234.3.579.2. 1962 Unknown [id number] 2.16.840.1.163012.3.579.2. 1962 Unknown [id number] 2.16.840.1.252624.3.579.2. 1962 Unknown [id number] 2.16.840.1.892449.3.579.2. 1962 Unknown [id number] 2.16.840.1.902630.3.579.2. 1962 Unknown [id number] 2.16.840.1.074705.3.579.2. 1962 Unknown [id number] 2.16.840.1.855255.3.579.2. 1962 Unknown [id number] 2.16.840.1.363191.3.579.2. 1962 Unknown [id number] 2.16.840.1.867709.3.579.2. 1962 Unknown [id number] 2.16.840.1.117132.3.579.2. 1962 Unknown [id number] 2.16.840.1.539203.3.579.2. 1962 Unknown [id number] 2.16.840.1.523229.3.579.2. 1962 Unknown [id number] 2.16.840.1.411792.3.579.2. 1962 Unknown [id number] 2.16.840.1.570638.3.579.2. 1962 Unknown [id number] 2.16.840.1.507921.3.579.2. 1962 Unknown [id number] 2.16.840.1.432538.3.579.2. 1962 Unknown [id number] 2.16.840.1.632305.3.579.2. 1962 Unknown [id number] 2.16.840.1.396937.3.579.2. 1962 Unknown [id number] 2.16.840.1.659283.3.579.2. 1962 Unknown [id number] 2.16.840.1.782817.3.579.2. 1962 Unknown [id number] 2.16.840.1.535909.3.579.2. 1962 Unknown [id number] 2.16.840.1.667412.3.579.2 1962 Unknown [id number] 2.16.840.1.538322.3.579.2.718 1962 Unknown [id number] 2.16.840.1.740591.3.579.2.718 1962 Unknown [id number] 2.16.840.1.472975.3.579.2.8 1962 Unknown [id number] 2.16.840.1.585251.3.579.2.718 1962 Unknown [id number] 2.16.840.1.053806.3.579.2.718 1962 Unknown [id number] 2.16.840.1.717680.3.579.2.718 1962 Unknown [id number] 2.16.840.1.482967.3.579.2.71 Unknown [id number] 2.16.840.1.389251.3.579.2.531 Social History Date Type Detail Facility Start: 02-08-2021 End: 04-18-2022 Tobacco smoking status NHIS Never smoker [facility] Start: 02-08-2021 Tobacco use and exposure Former user [employer] Phone: End: 01-17-2021 History of tobacco use Chews Tobacco [facility]: Start: 02-08-2021 End: 05-14-2023 Alcohol intake Ex-drinker (finding) [employer] Phone: Start: 07-25-2018 History SDOH Alcohol Frequency 1 [facility] Phone: Start: 1960 [facility] Start: 04-18-2022 Tobacco use and exposure User of smokeless tobacco [facility] Start: 06-16-2020 End: 05-14-2023 History of Social function [facility] Start: 06-16-2020 End: 05-14-2023 Tobacco use panel [employer] Housing Instability Unknown [employer] Medical Equipment Procedure Code Equipment Code Equipment Origin al Text Equipment Identifier Dates Ld Pcng Ingevity + 52cm Mri - [id number] - [id number] Start: 08-25-2020 Cardiac pacemaker, device (physical object) ([id number]) Pcmkr Accolade Mri Dr Cade - [id number] - [id number] Start: 08-25-2020 Goals Date Patient Goal Desired Activity /State Personal health goal Comment on above: Formatting of this n ote might be different from the original. Evaluation of progress towards goal: home self care Clinical Notes 06-02-2019 to 12-17-2023 [facility] 05/14/2023 11:30 AM Juanita Hopper MD - 05/14/2023 11:00 AM Starr Sanon RN - 06/02/2019 7:24 AM Serafin Jesus MD - 06/02/2019 6:43 AM EST Note Date & Type Note Facility 12-17-2023 Note Entered by Yousuf Pierce CMA on December 17, 2023 09:09:22 EDT From: Ana Pierce CMA To: [facility] Sent: 12/17/2023 09:09:22 EDT Subject: Medication Management Approved with modifications: Durable Medical Equipment for Prescription (CETIRIZINE 10MG TAB 10 Tablet) TAKE 1 TABLET BY MOUTH EVERY DAY Qty: 30 tab(s) Days Supply: 30 Refills: 10 Substitutions Allowed Route To Pharmacy - [facility] Signed by Ana Pierce CMA --------- From: [facility] To: KAREN ZAPATA, LESLY To MD Sent: December 16, 2023 5:27:38 PM CDT Subject: Medication Management Due: December 17, 2023 12:05:39 AM CDT On Hold Pending Signature Drug: cetirizine (cetirizine 10 mg oral tablet), 1 tab(s) PO Daily Quantity: 90 tab(s) Days Supply: 0 Refills: 2 Substitutions Allowed Notes from Pharmacy: Dispensed Drug: CETIRIZINE 10MG TAB 10 Tablet, TAKE 1 TABLET BY MOUTH EVERY DAY Quantity: 30 tab(s) Days Supply: 30 Refills: 10 Substitutions Allowed Notes from Pharmacy: --------- [facility] 11-18-2023 Note Entered by Yousuf Pierce CMA on November 18, 2023 07:43:49 EDT From: Ana Pierce CMA To: [facility] Sent: 11/18/2023 07:43:49 EDT Subject: Medication Management Submitted: Complete:rivaroxaban (Xarelto 20 mg oral tablet) Signed by Ana Pierce CMA 11/18/2023 07:43:00 EDT Approved with modifications: rivaroxaban (XARELTO 20 MG TABLET 20 Tablet) TAKE 1 TABLET BY MOUTH IN THE EVENING WITH MEALS Qty: 30 tab(s) Days Supply: 30 Refills: 10 Substitutions Allowed Route To Pharmacy - [facility] Signed by Ana Pierce CMA Patient matched by Ana Pierce CMA on 11/18/2023 07:43:20 EDT --------- From: [facility] To: KAREN ZAPATA, LESLY To MD Sent: November 15, 2023 5:11:03 PM CDT Subject: Medication Management Due: November 16, 2023 12:10:53 AM CDT On Hold Pending Signature Dispensed Drug: rivaroxaban (Xarelto 20 mg oral tablet), TAKE 1 TABLET BY MOUTH IN THE EVENING WITH MEALS Quantity: 30 tab(s) Days Supply: 30 Refills: 10 Substitutions Allowed Notes from Pharmacy: --------- [facility] 10-17-2023 Note Entered by Yousuf Pierce on October 17, 2023 07:43:22 EDT From: Ana Pierce To: [facility] Sent: 10/17/2023 07:43:22 EDT Subject: Medication Management Submitted: Complete:levothyroxine (levothyroxine 150 mcg (0.15 mg) oral tablet) Signed by Ana Pierce 10/17/2023 07:43:00 EDT Approved with modifications: levothyroxine (LEVOTHYROXINE 150MCG TAB 150 Tablet) TAKE 1 TABLET BY MOUTH ONCE DAILY Qty: 30 tab(s) Days Supply: 30 Refills: 10 Substitutions Allowed Route To Pharmacy - [facility] Signed by Ana Pierce --------- [facility] To: KAREN ZAPATA, LESLY To [...] 10 Substitutions Allowed Notes from Pharmacy: --------- [facility] 07-24-2023 Note CLINICAL DATA: Venou s [...] Signature): Romulo Wright 07/24/23 10:38 a Technologist: [facility] 07-08-2023 Note Entered by Yousuf Pierce on July 08, 2023 07:59:35 EST From: Ana Pierce [facility] Sent: 07/08/2023 07:59:35 EST Subject: Medication Management Not Approved: now on pulmicort fluticasone (FLUTICASONE PROP HFA 110MCG 110 Aerosol) INHALE 2 PUFFS BY MOUTH TWICE DAILY *RINSE MOUTH AFTER USE* Qty: 12 gm Days Supply: 30 Refills: 10 Substitutions Allowed Route To Pharmacy - [facility] Signed by Ana Pierce --------- From: [facility] To: KAREN ZAPATA, LESLY To MD Sent: July 05, 2023 4:32:01 PM [employer] Subject: Medication Management Due: July 06, 2023 12:09:30 AM [employer] On Hold Pending Signature Drug: fluticasone (Flovent [...] 10 Substitutions Allowed Notes from Pharmacy: --------- [facility] 05-28-2023 Note Entered by Yousuf Pierce on May 28, 2023 07:49:21 EST From: Ana Pierce To: [facility] Sent: 05/28/2023 07:49:21 EST Subject: Medication Management Submitted: Complete:oxyBUTYnin (oxybutynin 10 mg/24 hr oral tablet, extended release) Signed by Ana Pierce 05/28/2023 07:49:00 EST Approved with modifications: oxyBUTYnin (OXYBUTYNIN ER 10MG TAB 10 Tablet) TAKE 1 TABLET BY MOUTH DAILY Qty: 30 tab(s) Days Supply: 30 Refills: 10 Substitutions Allowed Route To Pharmacy - [facility] Signed by Ana Pierce --------- From: [facility] To: KAREN ZAPATA, LESLY To MD Sent: May 27, 2023 5:22:40 PM [employer] Subject: Medication Management Due: May 28, 2023 12:05:03 AM [employer] ARCHIT[employer] On Hold Pending Signature Drug: oxyBUTYnin (oxybutynin 10 mg/24 hr oral tablet, extended release), 1 tab(s) PO Daily Quantity: 30 tab(s) Days Supply: 0 Refills: 10 Substitutions Allowed Notes from Pharmacy: Dispensed Drug: oxyBUTYnin (oxybutynin 10 mg/24 hr oral tablet, extended release), TAKE 1 TABLET BY MOUTH DAILY Quantity: 30 tab(s) Days Supply: 30 Refills: 10 Substitutions Allowed Notes from Pharmacy: --------- [facility] 05-14-2023 History of Present illness Narrative Yrn Ricardo Date of visit: 05/14/2023 Date of : 1960 Age: 62 y.o. Patient Active Problem List Diagnosis Complete heart block ([facility]) Abnormal stress test Cardiac pacemaker Morbid obesity with BMI of 40.0-44.9, adult ([facility]) Bilateral primary osteoarthritis of knee Blister [...] PE, chronic lymphedema, complete heart block s/p [employer] dual-chamber pacemaker implanted 2020. He is here today for routine evaluation. Patient states he has been doing well since last office visit. He denies chest pain, shortness of breath, palpitations, fatigue. Patient enjoys fishing with his grandson. Past Medical History: Diagnosis Date Anxiety COPD (chronic obstructive pulmonary disease) ([facility]) Depression Hypertension Hypothyroidism Sleep apnea No data recorded No data recorded No data recorded Past Surgical History: Procedure Laterality Date Cardiac catheterization N/A 08/23/2020 Performed by Brian Hilario MD at [facility] CARDIAC CATH LABS Coronary angiogram and left ventricular gram/pressure N/A 08/23/2020 Performed by Brian Hilario MD at [facility] CARDIAC CATH LABS EP - Device-PPM Left 08/25/2020 Performed by Alexander Hopper MD at [facility] (EP) HAND RECONSTRUCTION Left SLEEVE GASTROPLASTY [...] Morbid obesity with BMI of 40.0-44.9, adult ([facility]) 3. Complete heart block ([facility]) Intermittent complete heart block s/p [employer] dual-chamber pacemaker implanted 2020 Device check [...] MELCHOR MD Referring Physician: Lesly Melchor MD [address] [place] [id number] LATISHA Harman 05/14/23 1202 [facility] History of Present illness Narrative I agree with the findings in the scanned document. documented [facility] this encounter [facility] 01-11-2023 Note Entered by Yousuf Pierce on January 11, 2023 07:51:29 EDT From: Ana Pierce To: [facility] Sent: 01/11/2023 07:51:29 EDT Subject: Medication Management Submitted: Complete:rivaroxaban (Xarelto 20 mg oral tablet) Signed by Ana Pierce 01/11/2023 07:51:00 EDT Approved with modifications: rivaroxaban (XARELTO 20 MG TABLET 20 Tablet) TAKE 1 TABLET BY MOUTH IN THE EVENING WITH MEALS Qty: 30 tab(s) Days Supply: 30 Refills: 10 Substitutions [facility] [facility] Signed by Ana Pierce Patient matched by Ana Pierce on 01/11/2023 07:51:09 EDT --------- From: [facility] To: KAREN ZAPATA, LESLY To MD Sent: January 10, 2023 5:18:47 PM CDT Subject: Medication Management Due: January 11, 2023 1:31:05 PM CDT On Hold Pending Signature Dispensed Drug: rivaroxaban (Xarelto 20 mg oral tablet), TAKE 1 TABLET BY MOUTH IN THE EVENING WITH MEALS Quantity: 30 tab(s) Days Supply: 30 Refills: 10 Substitutions Allowed Notes from Pharmacy: --------- [facility] 06-02-2019 History of Present illness Narrative [...] NICHOLS 1:03 PM documented in this encounter [employer] Phone: Evaluation note Diagnosis History of pulmonary embolism Personal history of pulmonary embolism Hx of deep venous thrombosis Personal history of venous thrombosis and embolism documented in this encounter [employer] Phone: evaluation note* Diagnosis S/P laparoscopic sleeve gastrectomy- Primary documented in this encounter [employer] Phone: evaluation note* Diagnosis Cardiac pacemaker- Primary Cardiac pacemaker in situ Morbid obesity with BMI of 40.0-44.9, adult ([facility]) Complete heart block ([facility]) Atrioventricular block, complete [facility] Diagnosis Cardiac pacemaker- Primary Cardiac pacemaker in situ [facility] Instructions* Stewart Golden DO - 06/02/2019 Discharge Instructions for Bariatric Surgery You had a Laparoscopic Sleeve Gastrectomy (75362) to treat obesity. Recovery from this surgery [...] scheduled appointment, please call the office at [phone]. Call Your Doctor If Any of the [...] sent through Care Everywhere. * Enoxaparin (Lovenox) (Malawian) * enoxaparin (Malawian) documented [facility] Phone: InstructionsNot on filedocumented in this encounter [employer] SystemInstructionsNot on filedocumented [facility] Purpose Family History No Family History Records FoundNo Family History Records FoundNo Family History Records FoundNo Family History Records FoundNo Family History Records Found Advance Directives No Advanced Directives Records FoundDocuments on File Type Date Recorded Patient Emr Trainer Expl anation ACP-Advance Directive ACP-Power of Director Of Exhibit Development Latest Code Status on File Code Status Date Activated Date Inactivated Comments Full Code 06/01/2019 12:33 PM 06/02/2019 3:05 PM Documents on File Type Date Recorded Patient Emr Trainer Expl anation Advance Directives and Living Will Power of Director Of Exhibit Development Documents on File Type Date Recorded Patient Emr Trainer Expl anation Advance Directives and Living Will Power of Director Of Exhibit Development Latest Code Status on File Code Status Date Activated Date Inactivated Comments Full Code 06/01/2019 12:33 PM Reason for Referral Status Reason Specialty Diagnoses / Procedures Referred By Contact Referred To Contact Pending Review Radiology Diagnoses History of pulmonary embolism Hx of deep venous thrombosis Procedures VL DUP LOWER EXTREMITY VENOUS BILATERAL Consuelo Delgadillo MD [address] [place] [address] Specialty Diagnoses / Procedures Referred By Jihan t Referred To Contact Diagnoses Cardiac pacemaker Procedures Device Interrogation Olaf Cain, CHILD DAY CARE TEACHER-MEDICAL GENETICIST [address] [place] [address] Referral ID Status Reason Start Date Expiration Date V isits Requested Visits Authorized [id number] Pending Review 05/14/2023 05/13/2024 1 1 Additional Source Comments (unrecognized sect ion and content) No Status Records FoundNo Status Records FoundNo Status Records FoundNo Status Records FoundNo Status Records Found INFORMATION SOURCE (unrecogn ized section and content) DATE CREATED AUTHOR 07/14/2019 [facility] DATE CREATED AUTHOR AUTHOR'S ORGANIZ ATION 02/11/2021 [facility] DATE CREATED AUTHOR AUTHOR'S ORGANIZ ATION 05/19/2023 [facility] DATE CREATED AUTHOR AUTHOR'S ORGANIZ ATION 09/29/2023 [facility] DATE CREATED AUTHOR AUTHOR'S ORGANIZ ATION 12/22/2023 [facility] Reason for Visit (unrecogniz ed section and content) Status Reason Specialty Diagnoses / Procedures Referred By Contact Referred To Contact Pending Review Radiology Diagnoses History of pulmonary embolism Hx of deep venous thrombosis Procedures VL DUP LOWER EXTREMITY VENOUS BILATERAL Consuelo Delgadillo MD [address] [place] [address] Status Reason Specialty Diagnoses / Procedures Referre d By Contact Referred To Contact Diagnoses Obesity OBESITY, HYPERTENSION, COPD, HYPOTHYROIDISM, LIPODEMIA Procedures WA LAP, DHARMESH RESTRICT PROC, LONGITUDINAL GASTRECTOMY XI ROBOTIC LAPAROSCOPIC GASTRECTOMY SLEEVE, ENDOSEAL Serafin Shearer MD [address] [place] [address] [facility] Reason Comments Device Check Reason Comments Device Check Care Teams (unrecognized sec tion and content) Social Worker Delinquency Prevention Relationship Specialty Start Date End Date Melchor, Lesly A, MD [address] [place] [id number] PCP - General 02/10/16 Social Worker Delinquency Prevention Relationship Specialty Start Date End Date Lesly Melchor MD [address] [place] [id number] PCP - General 02/10/16 FOR RECORDS PERTAINING [...] BE BASED ON THE PRIMARY CLINICAL RECORDS. [facility] [employer] [facility] provides no warranty or guarantee of the accuracy or completeness of information in this document.
[2023-12-25 11:31] VITALS: BP 126/85; PULSE 72; O2SAT 94; BMI 48.2
--- NOTE | 2023-12-25 11:31 | V.VEINS.HP ---
Vital Signs 12/25/23 11:31 Height 6 ft 3 in Weight 175 kg BMI 48.2 BP 126/85 BP Location Left Brachial BP Position Sitting BP Cuff Size Large Adult BP Source Automatic Cuff Respiration 18 Pulse 72 Pulse Oximetry (%) 94 L Comment The patient's blood pressure is elevated. Varicose Veins Patient in today for follow up ultrasound of right lower extremity following treatment of Varithena/microfoam completed on 12/18/23. Herman Chaves MD personally performed the services described in this documentation, as scribed by Grecia Nielsen RDMS in my presence and it is both accurate and complete. Grecia Chaves RDMS, am scribing for, and in the presence of, Dr. Brooks Patiño and in the presence of the patient. medial thigh: bilateral, knee: bilateral, calf: bilateral, ankle: bilateral and munoz: bilateral burning and sharp 6 11 years Worsened in recent months: Yes standing and sitting bed rest, elevating extremities and compression stockings Reports heaviness, edema and leg edema History of lower extremity trauma: No Superficial thrombophlebitis: No Family history of varicose veins: unknown Has patient had previous lower extremity venous surgery: No Patient has previously received the following treatment(s) for lower extremity varicose veins: Reports none Does patient have a history of : not applicable Does patient intend to have future pregnancies: not applicable Has patient had lower extremity venous scan with relux testing: Yes Support hose used: Yes Problems walking or doing physical activity: Yes 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 Grecia Chaves RDMS, am scribing for, and in the presence of, Dr. Brooks Patiño and in the presence of the patient. Status of ROS 10 or more systems reviewed and unremarkable except as noted in history and below Cardiovascular Reports: edema and swelling of feet/ankles Musculoskeletal Reports: extremity pain and extremity swelling Integumentary/Breast Reports: redness, non-healing lesion and changes in skin [facility] (Updated 11/28/23 @ 14:31 by Grecia Nielsen) Phlebitis and thrombophlebitis of superficial vessels of lower extremities, bilateral ?I80.03 - Phlebitis and thrombophlebitis of superficial vessels of lower extremities, bilateral (ICD-10) Phlebitis and thrombophlebitis of superficial vessels of right lower extremity ?I80.01 - Phlebitis and thrombophlebitis of superficial vessels of right lower extremity (ICD-10) Non-healing lumpectomy wound ?T81.89XA - Other complications of procedures, not elsewhere classified, initial encounter (ICD-10) Other reconstructive surgery as the cause of abnormal reaction of the patient, or of later complication, without mention of misadventure at the time of the procedure ?Y83.4 - Other reconstructive surgery as the cause of abnormal reaction of the patient, or of later complication, without mention of misadventure at the time of the procedure (ICD-10) Cubital tunnel syndrome ?G56.20 - Lesion of ulnar nerve, unspecified upper limb (ICD-10) Pacemaker ?Z95.0 - Presence of cardiac pacemaker (ICD-10) Obesity ?E66.9 - Obesity, unspecified (ICD-10) Hypothyroidism ?E03.9 - Hypothyroidism, unspecified (ICD-10) Osteoarthritis ?M19.90 - Unspecified osteoarthritis, unspecified site (ICD-10) DVT (deep venous thrombosis) ?I82.409 - Acute embolism and thrombosis of unspecified deep veins of unspecified lower extremity (ICD-10) Arrhythmia ?I49.9 - Cardiac arrhythmia, unspecified (ICD-10) PVD (peripheral vascular disease) ?I73.9 - Peripheral vascular disease, unspecified (ICD-10) COPD (chronic obstructive pulmonary disease) ?J44.9 - Chronic obstructive pulmonary disease, unspecified (ICD-10) Asthma ?J45.909 - Unspecified asthma, uncomplicated (ICD-10) Lymphedema ?I89.0 - Lymphedema, not elsewhere classified (ICD-10) Venous insufficiency ?I87.2 - Venous insufficiency (chronic) (peripheral) (ICD-10) Varicose veins of bilateral lower extremities with pain ?I83.813 - Varicose veins of bilateral lower extremities with pain (ICD-10) Surgical History (Updated 11/28/23 @ 14:16 by Grecia Nielsen) Status post ablation of incompetent vein using laser ?Z98.890 - Other specified postprocedural states (ICD-10) H/O gastric sleeve ?Z90.3 - Acquired absence of stomach [part of] (ICD-10) Family History (Updated 11/06/23 @ 09:08 by Estefania Dhaliwal) Other Family history not known due to adoption Social History (Updated 11/06/23 @ 09:09 by Estefania Dhaliwal) Within the past year, how often did you have a drink containing alcohol: never Score interpretation: A score less than 4 is consistent with normal alcohol consumption. Smoking status: Never smoker Non-prescribed substance use: denies use Meds Home Medications and Allergies Home Medications ?Medication ?Instructions ?Recorded ?Confirmed ?Type albuterol sulfate 90 mcg/actuation 1 inh inhalation Q6H 11/06/23 11/06/23 History aerosol inhaler aripiprazole 20 mg tablet (Abilify) 20 mg PO DAILY 11/06/23 11/06/23 History cetirizine 10 mg capsule 10 mg PO DAILY PRN angioedema 11/06/23 11/06/23 History citalopram 20 mg tablet (Celexa) 10 mg PO DAILY 11/06/23 11/06/23 History fluticasone propionate 110 1 inh inhalation BID 11/06/23 11/06/23 History mcg/actuation HFA aerosol inhaler levothyroxine 150 mcg tablet 75 mcg PO DAILY 11/06/23 11/06/23 History (Euthyrox) lorazepam 0.5 mg tablet (Ativan) 0.5 mg PO DAILY 11/06/23 11/06/23 History oxybutynin chloride 10 mg 10 mg PO DAILY 11/06/23 11/06/23 History tablet,extended release 24 hr oxycodone-acetaminophen 5 mg-325 1 tab PO DAILY 11/06/23 11/06/23 History mg tablet (Endocet) rivaroxaban 20 mg tablet (Xarelto) 20 mg PO DAILY 11/06/23 11/06/23 History trazodone 100 mg tablet 50 mg PO DAILY 11/06/23 11/06/23 History zolpidem 5 mg tablet (Ambien) 11/06/23 History Allergies Allergy/AdvReac Type Severity Reaction Status Date / Time No Known Drug Allergies Allergy Verified 10/04/23 14:35 Exam Narrative Exam Narrative: Improvement in swelling of legs noted. Herman Chaves MD personally performed the services described in this documentation, as scribed by Grecia Nielsen RDMS in my presence and it is both accurate and complete. Grecia Chaves RDMS, am scribing for, and in the presence of, Dr. Brooks Patiño and in the presence of the patient. Constitutional Documenting provider has reviewed patient's vital signs: yes Common normals: oriented x3 Lymph Lymphatic: no lymphedema noted Cardio Common normals: regular rate Rate: regular rate Peripheral pulses: posterior tibial pulses present and dorsalis pedis pulses present Extremity Common normals: normal capillary refill General: edema Right lower extremity: upper leg and lower leg Left lower extremity: upper leg and lower leg Neuro Common normals: oriented x3 Results Imaging Venous US: Radiologist's impression: Chemically induced thrombus in multiple varicose veins right leg. Herman Chaves MD personally performed the services described in this documentation, as scribed by Grecia Nielsen RDMS in my presence and it is both accurate and complete. Grecia Chaves RDMS am scribing for, and in the presence of, Dr. Brooks Patiño and in the presence of the patient. Assessment and Plan Assessment and Plan (1) Phlebitis and thrombophlebitis of superficial vessels of right lower extremity: Plan Plan is for patient to return for Varithena/microfoam of left leg on 12/31/23. Herman Chaves MD personally performed the services described in this documentation, as scribed by Grecia Nielsen RDMS in my presence and it is both accurate and complete. Grecia Chaves RDMS, am scribing for, and in the presence of, Dr. Brooks Patiño and in the presence of the patient.
--- NOTE | 2023-12-25 11:37 | P.DS_ITS ---
Discharge Plan Discharge Disposition: Home, Self-Care Outpatient Diagnostics: VC INJ Foam Sclerosant RICK PATIENT CENTERED CARE SPECIALIST (Routine) Timeframe: 2 Weeks Facility: [facility] - Location: [facility] Center Ordered By: Herman Patiño Follow Up Appointments: 12/31/23 Plan of Treatment: Varithena/microfoam of left leg Print Language: Amharic Discharge Date/Time: 12/25/23 11:38
== END 2023-12-25 11:38 | disposition home or self-care (01) ==
PROVIDERS: PCP Radiology Diagnostic Radiology; Visit Provider Radiology Diagnostic Radiology
DX: I80.01 Phlebitis and thrombophlebitis of superficial vessels of right lower extremity (principal)
CPT/HCPCS: 93971; G0463

== ENCOUNTER 2023-12-31 13:39 | Outpatient (OUT) | payer MEDICARE, MEDICAID, SELFPAY ==
--- NOTE | 2023-12-30 08:07 | V.VEINS.HP ---
Vital Signs 12/31/23 14:42 Height 6 ft 3 in Weight 175.087 kg Varicose Veins Patient in today for microfoam chemical ablation left leg. Trino Chaves MD personally performed the services described in this documentation, as scribed by Wild Slade RN in my presence and it is both accurate and complete. Wild Chaves RN, am scribing for, and in the presence of, Dr. Trino Israel and in the presence of the patient. medial thigh: bilateral, knee: bilateral, calf: bilateral, ankle: bilateral and munoz: bilateral burning and sharp 6 11 years Worsened in recent months: Yes standing and sitting bed rest, elevating extremities and compression stockings Reports heaviness, edema and leg edema History of lower extremity trauma: No Superficial thrombophlebitis: No Family history of varicose veins: unknown Has patient had previous lower extremity venous surgery: No Patient has previously received the following treatment(s) for lower extremity varicose veins: Reports none Does patient have a history of : not applicable Does patient intend to have future pregnancies: not applicable Has patient had lower extremity venous scan with relux testing: Yes Support hose used: Yes Problems walking or doing physical activity: Yes 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 Wild Chaves RN, am scribing for, and in the presence of, Dr. Trino Israel and in the presence of the patient.. Status of ROS 10 or more systems reviewed and unremarkable except as noted in history and below Cardiovascular Reports: edema and swelling of feet/ankles Musculoskeletal Reports: extremity pain and extremity swelling Integumentary/Breast Reports: redness, non-healing lesion and changes in skin color [facility] Medical History (Updated 12/31/23 @ 14:44 by Wild Slade) Thrombophlebitis of superficial veins of left lower extremity ?I80.02 - Phlebitis and thrombophlebitis of superficial vessels of left lower extremity (ICD-10) Phlebitis and thrombophlebitis of superficial vessels of lower extremities, bilateral ?I80.03 - Phlebitis and thrombophlebitis of superficial vessels of lower extremities, bilateral (ICD-10) Phlebitis and thrombophlebitis of superficial vessels of right lower extremity ?I80.01 - Phlebitis and thrombophlebitis of superficial vessels of right lower extremity (ICD-10) Non-healing lumpectomy wound ?T81.89XA - Other complications of procedures, not elsewhere classified, initial encounter (ICD-10) Other reconstructive surgery as the cause of abnormal reaction of the patient, or of later complication, without mention of misadventure at the time of the procedure ?Y83.4 - Other reconstructive surgery as the cause of abnormal reaction of the patient, or of later complication, without mention of misadventure at the time of the procedure (ICD-10) Cubital tunnel syndrome ?G56.20 - Lesion of ulnar nerve, unspecified upper limb (ICD-10) Pacemaker ?Z95.0 - Presence of cardiac pacemaker (ICD-10) Obesity ?E66.9 - Obesity, unspecified (ICD-10) Hypothyroidism ?E03.9 - Hypothyroidism, unspecified (ICD-10) Osteoarthritis ?M19.90 - Unspecified osteoarthritis, unspecified site (ICD-10) DVT (deep venous thrombosis) ?I82.409 - Acute embolism and thrombosis of unspecified deep veins of unspecified lower extremity (ICD-10) Arrhythmia ?I49.9 - Cardiac arrhythmia, unspecified (ICD-10) PVD (peripheral vascular disease) ?I73.9 - Peripheral vascular disease, unspecified (ICD-10) COPD (chronic obstructive pulmonary disease) ?J44.9 - Chronic obstructive pulmonary disease, unspecified (ICD-10) Asthma ?J45.909 - Unspecified asthma, uncomplicated (ICD-10) Lymphedema ?I89.0 - Lymphedema, not elsewhere classified (ICD-10) Venous insufficiency ?I87.2 - Venous insufficiency (chronic) (peripheral) (ICD-10) Varicose veins of bilateral lower extremities with pain ?I83.813 - Varicose veins of bilateral lower extremities with pain (ICD-10) Surgical History (Updated 11/28/23 @ 14:16 by Grecia Nielsen) Status post ablation of incompetent vein using laser ?Z98.890 - Other specified postprocedural states (ICD-10) H/O gastric sleeve ?Z90.3 - Acquired absence of stomach [part of] (ICD-10) Family History (Updated 11/06/23 @ 09:08 by Estefania Dhaliwal) Other Family history not known due to adoption Social History (Updated 11/06/23 @ 09:09 by Estefania Dhaliwal) Within the past year, how often did you have a drink containing alcohol: never Score interpretation: A score less than 4 is consistent with normal alcohol consumption. Smoking status: Never smoker Non-prescribed substance use: denies use Meds Home Medications and Allergies Home Medications ?Medication ?Instructions ?Recorded ?Confirmed ?Type albuterol sulfate 90 mcg/actuation 1 inh inhalation Q6H 11/06/23 11/06/23 History aerosol inhaler aripiprazole 20 mg tablet (Abilify) 20 mg PO DAILY 11/06/23 11/06/23 History cetirizine 10 mg capsule 10 mg PO DAILY PRN angioedema 11/06/23 11/06/23 History citalopram 20 mg tablet (Celexa) 10 mg PO DAILY 11/06/23 11/06/23 History fluticasone propionate 110 1 inh inhalation BID 11/06/23 11/06/23 History mcg/actuation HFA aerosol inhaler levothyroxine 150 mcg tablet 75 mcg PO DAILY 11/06/23 11/06/23 History (Euthyrox) lorazepam 0.5 mg tablet (Ativan) 0.5 mg PO DAILY 11/06/23 11/06/23 History oxybutynin chloride 10 mg 10 mg PO DAILY 11/06/23 11/06/23 History tablet,extended release 24 hr oxycodone-acetaminophen 5 mg-325 1 tab PO DAILY 11/06/23 11/06/23 History mg tablet (Endocet) rivaroxaban 20 mg tablet (Xarelto) 20 mg PO DAILY 11/06/23 11/06/23 History trazodone 100 mg tablet 50 mg PO DAILY 11/06/23 11/06/23 History zolpidem 5 mg tablet (Ambien) 11/06/23 History Allergies Allergy/AdvReac Type Severity Reaction Status Date / Time No Known Drug Allergies Allergy Verified 10/04/23 14:35 Exam Narrative Exam Narrative: ITrino MD personally performed the services described in this documentation, as scribed by Wild Slade RN in my presence and it is both accurate and complete. I, Wild Slade RN, am scribing for, and in the presence of, Dr. Trino Israel and in the presence of the patient. Constitutional Documenting provider has reviewed patient's vital signs: yes Common normals: oriented x3 Lymph Lymphatic: no lymphedema noted Cardio Common normals: regular rate Rate: regular rate Peripheral pulses: posterior tibial pulses present and dorsalis pedis pulses present Extremity Common normals: normal capillary refill General: edema Right lower extremity: upper leg and lower leg Left lower extremity: upper leg and lower leg Neuro Common normals: oriented x3 Assessment and Plan Assessment and Plan (1) Varicose veins of bilateral lower extremities with pain: Plan f/u evaluation with physician along with right leg limited u/s ITrino MD personally performed the services described in this documentation, as scribed by Wild Slade RN in my presence and it is both accurate and complete. I, Wild Slade RN, am scribing for, and in the presence of, Dr. Trino Israel and in the presence of the patient. Procedures Procedure Instructions Procedures Left leg microfoam chemical ablation/Varithena: Risks and benefits of the procedure were discussed at length and informed written consent was obtained.? Time-out procedure was performed and the correct patient and procedure were confirmed.? Staff present during time-out: Wild Slade RN and Trino Israel MD.? Patient prepped and procedure performed in usual sterile fashion.? Patient was placed in Trendelenburg prior to Polidocanol/Varithena injections. Sclerosing Agent:?? 15cc 1% Polidocanol/Varithena Site Injected: Left lecc varithena administered in to a 6mm varicose vein left distal medial lower leg 7cc varithena administered in to a 5mm varicose vein left distal lateral lower leg Number of Injections:? 2 The patient tolerated the procedure well without complication.? Hemostasis was obtained and thigh-high compression stocking was applied with foam pads.? Instructed patient to wear stocking for at least 96 hours and sleep with it and only remove for showering.? The patient was instructed to? wear stocking for 2 weeks.? Patient verbalizes understanding and states they will comply.? Patient was given post-procedure instructions. Patient was discharged in good condition.? Scheduled to undergo limited venous ultrasound and? exam on 01/09/2024.
--- NOTE | 2023-12-30 08:17 | W.VEIN ---
Discharge Plan Discharge Disposition: Home, Self-Care Outpatient Diagnostics: VC Facility EST LMTD (Routine) Timeframe: 2 Weeks Facility: [facility] - Location: [facility]in Center Ordered By: Trino Israel VC EXT Venous LT Limited (Routine) Timeframe: 2 Weeks Facility: [facility] - Location: Vein Center Ordered By: Trino Israel Follow Up Appointments: 01/09/2024 Plan of Treatment: f/u evaluation with physician along with left leg limited u/s Patient Instructions: Endovenous Ablation (DC) Print Language: Uzbek Discharge Date/Time: 12/31/23 14:45
--- NOTE | 2023-12-31 13:41 | VEIN_ITS ---
The [address] [address] Patient Name: YRN RICARDO MRN: [id number] date: 1960 Sex: M Assigned Patient Location: Current Patient Location: Accession/Order Number: [id number] Exam Date: 12/31/2023 14:31 Report Date: 12/31/2023 14:52 At the request of: MARCO LYNN Procedure: VC INJ Foam Sclerosant [facility]US [facility] [employer] JUDGE PROCEDURE: VC INJ Foam Sclerosant WUS [facility] JUDGE COMPARISON: None. HISTORY: I83.813 - Varicose veins of bilateral lower extremities w... Pre-operative Diagnosis: CEAP class C6 venous insufficiency with pain, tenderness, edema and incompetent left saphenous and varicose vein(s), chronic venous insufficiency left leg secondary to venous incompetence Post-operative Diagnosis: CEAP class C6 venous insufficiency with pain, tenderness, edema and incompetent left saphenous and varicose vein(s), chronic venous insufficiency left leg secondary to venous incompetence Procedure Performed: 1. Ultrasound-guided microfoam chemical ablation with Varithenaregistered 2. Intraoperative ultrasound guidance Anesthesia: None Indications for Procedure: 63-year-old male who presents with a long history of lower extremity pain and swelling hemosiderin staining skin thickening culminating in nonhealing venous stasis ulcerations. The patient failed conservative medical therapy including medical compression stockings, exercise and analgesics. Prior procedures include endovenous laser ablation and Microfoam chemical ablation. Multiple incompetent varicosities of the left leg. Duplex scan showed reflux and enlarged diameters up to 6 mm. The patient underwent informed consent including management options where the complications of infection, bleeding, pain, and skin injury were discussed. Particular attention was spent discussing thrombus extension and deep vein thrombosis as well as the possibility of pulmonary embolus and treatment with oral or injectable blood thinners. Procedure: The patient walked to the procedure room. All applicable staff donned appropriate apparel. A procedure timeout was performed to confirm correct patient, correct extremity, correct procedure, and correct room set-up including presence of all applicable supplies, devices, and drugs. A duplex ultrasound, performed by myself confirmed the location and incompetence of branch saphenous varicosities and their course was marked on the skin together with the dilated tributaries. The extent of treatment of the vein and the associated varicosities was determined through ultrasound mapping. The skin was prepped and then punctured with a butterfly needle and advanced under ultrasound guidance. The Varithenaregistered canister was activated and the canister was primed and purged as required in the instructions for use. Varithenaregistered was drawn into a sterile syringe. The following injections were made: 8 cc injected into a 6 mm varicose vein left distal medial lower leg 7 cc injected into a 5 mm varicose vein left distal lateral lower leg Varithenaregistered was slowly administered at 0.5-1.0 cc/second with close observation by ultrasound of its course in the vessels. Total volume utilized was: 15 cc. Following administration of Varithenaregistered the leg was elevated and the patient was asked to repeatedly dorsiflex the ankle to limit flow of Varithenaregistered into perforating veins. Once appropriate spasm had been confirmed in the treated veins, the vascular catheter was removed from the leg and light pressure was applied over the puncture site for hemostasis. The common femoral and deep superficial veins were then evaluated for flow and compressibility prior to dressing placement. The lower extremity was kept elevated at 45 degrees above the horizontal and cording material was applied over the saphenous segments and tributaries to allow for eccentric compression over the target vessels including the targeted saphenous vein(s). A multilayer dressing was applied consisting of foam pads, coban and thigh-high 20-30 mm Hg compression elastic support hose were placed on the patient. The leg was lowered only after compression had been applied and the patient was immediately ambulatory. The patient ambulated 10 minutes under supervision and was without apparent concerns at time of release. Post-care instructions include advising patient to keep post-treatment bandages in place and dry for 48 hours, avoid extended periods of inactivity, avoid heavy exercise for one week, wear compression stockings on the treated leg continuously for two weeks, to walk daily for 10 minutes over the next month. The patient was instructed to take an anti-inflammatory medicine as needed and to follow up for color duplex scan of the Saphenous veins, the treated branch saphenous varicosities, the adjacent deep veins, and additional treatment within 7 days. PERSONNEL: Wild Slade RN Electronically authenticated by: LEONID SCOTT Date: 12/31/2023 14:52
== END 2023-12-31 14:45 | disposition home or self-care (01) ==
LOC: VC 13:40
PROVIDERS: PCP Radiology Diagnostic Radiology; Visit Provider Radiology Diagnostic Radiology
DX: I83.813 Varicose veins of bilateral lower extremities with pain (principal)
CPT/HCPCS: 36466

== ENCOUNTER 2024-01-09 10:49 | Outpatient (OUT) | payer MEDICARE, MEDICAID, SELFPAY ==
[2024-01-09 07:31] VITALS: BMI 48.2
--- NOTE | 2024-01-09 07:31 | V.VEINS.HP ---
Vital Signs 01/09/24 07:31 Height 6 ft 3 in Weight 175 kg BMI 48.2 Varicose Veins Patient in today for follow up ultrasound post microfoam chemical ablation left leg. Herman Chaves MD personally performed the services described in this documentation, as scribed by Estefania Dhaliwal RVT, RDMS in my presence and it is both accurate and complete. Estefania Chaves RVT, RDMS, am scribing for, and in the presence of, Dr. Herman Patiño and in the presence of the patient. medial thigh: bilateral, knee: bilateral, calf: bilateral, ankle: bilateral and munoz: bilateral burning and sharp 6 11 years Worsened in recent months: Yes standing and sitting bed rest, elevating extremities and compression stockings Reports heaviness, edema and leg edema History of lower extremity trauma: No Superficial thrombophlebitis: No Family history of varicose veins: unknown Has patient had previous lower extremity venous surgery: No Patient has previously received the following treatment(s) for lower extremity varicose veins: Reports none Does patient have a history of : not applicable Does patient intend to have future pregnancies: not applicable Has patient had lower extremity venous scan with relux testing: Yes Support hose used: Yes Problems walking or doing physical activity: Yes How does it affect you: 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 Estefania Chaves RVT, RDMS, am scribing for, and in the presence of, Dr. Herman Patiño and in the presence of the patient. Status of ROS 10 or more systems reviewed and unremarkable except as noted in history and below Cardiovascular Reports: edema and swelling of feet/ankles Musculoskeletal Reports: extremity pain and extremity swelling Integumentary/Breast Reports: redness, non-healing lesion and changes in skin color [facility] Medical History (Updated 12/31/23 @ 14:44 by Wild Slade) Thrombophlebitis of superficial veins of left lower extremity ?I80.02 - Phlebitis and thrombophlebitis of superficial vessels of left lower extremity (ICD-10) Phlebitis and thrombophlebitis of superficial vessels of lower extremities, bilateral ?I80.03 - Phlebitis and thrombophlebitis of superficial vessels of lower extremities, bilateral (ICD-10) Phlebitis and thrombophlebitis of superficial vessels of right lower extremity ?I80.01 - Phlebitis and thrombophlebitis of superficial vessels of right lower extremity (ICD-10) Non-healing lumpectomy wound ?T81.89XA - Other complications of procedures, not elsewhere classified, initial encounter (ICD-10) Other reconstructive surgery as the cause of abnormal reaction of the patient, or of later complication, without mention of misadventure at the time of the procedure ?Y83.4 - Other reconstructive surgery as the cause of abnormal reaction of the patient, or of later complication, without mention of misadventure at the time of the procedure (ICD-10) Cubital tunnel syndrome ?G56.20 - Lesion of ulnar nerve, unspecified upper limb (ICD-10) Pacemaker ?Z95.0 - Presence of cardiac pacemaker (ICD-10) Obesity ?E66.9 - Obesity, unspecified (ICD-10) Hypothyroidism ?E03.9 - Hypothyroidism, unspecified (ICD-10) Osteoarthritis ?M19.90 - Unspecified osteoarthritis, unspecified site (ICD-10) DVT (deep venous thrombosis) ?I82.409 - Acute embolism and thrombosis of unspecified deep veins of unspecified lower extremity (ICD-10) Arrhythmia ?I49.9 - Cardiac arrhythmia, unspecified (ICD-10) PVD (peripheral vascular disease) ?I73.9 - Peripheral vascular disease, unspecified (ICD-10) COPD (chronic obstructive pulmonary disease) ?J44.9 - Chronic obstructive pulmonary disease, unspecified (ICD-10) Asthma ?J45.909 - Unspecified asthma, uncomplicated (ICD-10) Lymphedema ?I89.0 - Lymphedema, not elsewhere classified (ICD-10) Venous insufficiency ?I87.2 - Venous insufficiency (chronic) (peripheral) (ICD-10) Varicose veins of bilateral lower extremities with pain ?I83.813 - Varicose veins of bilateral lower extremities with pain (ICD-10) Surgical History (Updated 11/28/23 @ 14:16 by Grecia Nielsen) Status post ablation of incompetent vein using laser ?Z98.890 - Other specified postprocedural states (ICD-10) H/O gastric sleeve ?Z90.3 - Acquired absence of stomach [part of] (ICD-10) Family History (Updated 11/06/23 @ 09:08 by Estefania Dhaliwal) Other Family history not known due to adoption Social History (Updated 11/06/23 @ 09:09 by Estefania Dhaliwal) Within the past year, how often did you have a drink containing alcohol: never Score interpretation: A score less than 4 is consistent with normal alcohol consumption. Smoking status: Never smoker Non-prescribed substance use: denies use Meds Home Medications and Allergies Home Medications ?Medication ?Instructions ?Recorded ?Confirmed ?Type albuterol sulfate 90 mcg/actuation 1 inh inhalation Q6H 11/06/23 11/06/23 History aerosol inhaler aripiprazole 20 mg tablet (Abilify) 20 mg PO DAILY 11/06/23 11/06/23 History cetirizine 10 mg capsule 10 mg PO DAILY PRN angioedema 11/06/23 11/06/23 History citalopram 20 mg tablet (Celexa) 10 mg PO DAILY 11/06/23 11/06/23 History fluticasone propionate 110 1 inh inhalation BID 11/06/23 11/06/23 History mcg/actuation HFA aerosol inhaler levothyroxine 150 mcg tablet 75 mcg PO DAILY 11/06/23 11/06/23 History (Euthyrox) lorazepam 0.5 mg tablet (Ativan) 0.5 mg PO DAILY 11/06/23 11/06/23 History oxybutynin chloride 10 mg 10 mg PO DAILY 11/06/23 11/06/23 History tablet,extended release 24 hr oxycodone-acetaminophen 5 mg-325 1 tab PO DAILY 11/06/23 11/06/23 History mg tablet (Endocet) rivaroxaban 20 mg tablet (Xarelto) 20 mg PO DAILY 11/06/23 11/06/23 History trazodone 100 mg tablet 50 mg PO DAILY 11/06/23 11/06/23 History zolpidem 5 mg tablet (Ambien) 11/06/23 History Allergies Allergy/AdvReac Type Severity Reaction Status Date / Time No Known Drug Allergies Allergy Verified 10/04/23 14:35 Exam Narrative Exam Narrative: IHerman MD personally performed the services described in this documentation, as scribed by Estefania Dhaliwal RVT, RDMS in my presence and it is both accurate and complete. I, Estefania Dhaliwal RVT, RDMS, am scribing for, and in the presence of, Dr. Herman Patiño and in the presence of the patient. 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 Assessment and Plan Assessment and Plan (1) Phlebitis and thrombophlebitis of superficial vessels of lower extremities, bilateral: (2) Thrombophlebitis of superficial veins of left lower extremity: Plan Patient in today for follow up ultrasound of lower extremity following treatment of Varithena/microfoam completed on 12/31/23.
--- NOTE | 2024-01-09 07:38 | P.DS_ITS ---
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 Print Language: Telugu Discharge Date/Time: 01/09/24 10:50
--- NOTE | 2024-01-09 07:38 | W.VEIN ---
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 Print Language: Urdu Discharge Date/Time: 01/09/24 10:50
--- NOTE | 2024-01-09 10:51 | VEIN_ITS ---
Patient Name: YRN RICARDO MR#: [id number] : 1960 Exam Date: 01/09/2024 Ordering Doctor: DR LEONID SCOTT M.D. RADIOLOGY REPORT PROCEDURE: VC EXT VENOUS LT LIMITED COMPARISON: VC EXT VENOUS LT LIMITED, 10/31/2023. INDICATIONS: I80.02 - Phlebitis and thrombophlebitis of superficial ve... TECHNIQUE: Lower extremity nuñez scale and Duplex Doppler evaluation of the deep venous system from the inguinal ligament through the calf veins. FINDINGS: REGION: Left lower extremity. THROMBI: Negative for DVT. Varithena induced thrombus visualized at dist/med calf and dist/lat calf. COMPRESSIBILITY: Non-compressible segments corresponding to thrombus FLOW: Areas of no flow corresponding to thrombus OTHER: Multiple varicose veins remain with the largest at mid/med thigh measuring 5.7mm with 2.0s reflux. CONCLUSION: 1. Successful post ablation occlusion of left leg treated branch saphenous varicosities. Dictated by: Herman Patiño M.D. on 01/09/2024 at 11:24 Approved by: Herman Patiño M.D. on 01/09/2024 at 11:24
--- NOTE | 2024-01-09 10:51 | VEIN_ITS ---
Patient Name: YRN RICARDO MR#: [id number] : 1960 Exam Date: 01/09/2024 Ordering Doctor: DR LEONID SCOTT M.D. RADIOLOGY REPORT PROCEDURE: [facility] - OFFICE VISIT FOLLOW UP COMPARISON: [facility], 12/25/2023. PROGRESS NOTES: The patient reports improvement in leg symptoms. There has been interval reduction in varicosities. The patient has followed our recommendations to walk 20-30 minutes once or twice per day since the procedure. Physical exam demonstrates decrease in varicosities of the leg. Persistent varicosities are identified along the legs bilaterally. Review of the ultrasound performed the same day demonstrates occlusive thrombus extending throughout the treated vein(s), see separate report, consistent with a successful ablation. No thrombus extending into or beyond the saphenofemoral junction. The patient expressed a desire to proceed with treatment of remaining incompetent branch saphenous varicosities. The patient was informed that treatment was a process and would require several procedures/sessions. [facility] IM[facility]: 1. Successful ablation of the left leg treated branch saphenous vein(s). 2. Persistent bilateral lower extremity varicose veins and lower extremity symptoms. PLAN: 1. Microfoam chemical ablation of right leg incompetent branch saphenous varicosities. Nurse notes, history and physical were reviewed and confirmed, see attached forms. The nurse was present throughout the physical exam and consultation Dictated by: Herman Patiño M.D. on 01/09/2024 at 11:24 Approved by: Herman Patiño M.D. on 01/09/2024 at 11:25
== END 2024-01-09 10:50 | disposition home or self-care (01) ==
LOC: VC 10:49
PROVIDERS: PCP Radiology Diagnostic Radiology; Visit Provider Radiology Diagnostic Radiology
DX: I80.03 Phlebitis and thrombophlebitis of superficial vessels of lower extremities, bilateral (principal)
CPT/HCPCS: 93971; G0463

== ENCOUNTER 2024-01-29 14:07 | Outpatient (OUT) | payer MEDICARE, MEDICAID, SELFPAY ==
--- NOTE | 2024-01-15 11:34 | V.VEINS.HP ---
Varicose Veins Patient in this day for microfoam chemical ablation right leg Trino Chaves MD personally performed the services described in this documentation, as scribed by Wild Slade RN in my presence and it is both accurate and complete. IWild RN, am scribing for, and in the presence of, Dr. Trino Israel and in the presence of the patient. Review of Systems ROS Narrative Trino Chaves MD personally performed the services described in this documentation, as scribed by Wild Slade RN in my presence and it is both accurate and complete. IWild RN, am scribing for, and in the presence of, Dr. Trino Israel and in the presence of the patient. Status of ROS 10 or more systems reviewed and unremarkable except as noted in history and below Cardiovascular Reports: edema and swelling of feet/ankles Musculoskeletal Reports: extremity pain and extremity swelling Integumentary/Breast Reports: redness, non-healing lesion and changes in skin color [facility] Medical History (Updated 12/31/23 @ 14:44 by Wild Slade) Thrombophlebitis of superficial veins of left lower extremity ?I80.02 - Phlebitis and thrombophlebitis of superficial vessels of left lower extremity (ICD-10) Phlebitis and thrombophlebitis of superficial vessels of lower extremities, bilateral ?I80.03 - Phlebitis and thrombophlebitis of superficial vessels of lower extremities, bilateral (ICD-10) Phlebitis and thrombophlebitis of superficial vessels of right lower extremity ?I80.01 - Phlebitis and thrombophlebitis of superficial vessels of right lower extremity (ICD-10) Non-healing lumpectomy wound ?T81.89XA - Other complications of procedures, not elsewhere classified, initial encounter (ICD-10) Other reconstructive surgery as the cause of abnormal reaction of the patient, or of later complication, without mention of misadventure at the time of the procedure ?Y83.4 - Other reconstructive surgery as the cause of abnormal reaction of the patient, or of later complication, without mention of misadventure at the time of the procedure (ICD-10) Cubital tunnel syndrome ?G56.20 - Lesion of ulnar nerve, unspecified upper limb (ICD-10) Pacemaker ?Z95.0 - Presence of cardiac pacemaker (ICD-10) Obesity ?E66.9 - Obesity, unspecified (ICD-10) Hypothyroidism ?E03.9 - Hypothyroidism, unspecified (ICD-10) Osteoarthritis ?M19.90 - Unspecified osteoarthritis, unspecified site (ICD-10) DVT (deep venous thrombosis) ?I82.409 - Acute embolism and thrombosis of unspecified deep veins of unspecified lower extremity (ICD-10) Arrhythmia ?I49.9 - Cardiac arrhythmia, unspecified (ICD-10) PVD (peripheral vascular disease) ?I73.9 - Peripheral vascular disease, unspecified (ICD-10) COPD (chronic obstructive pulmonary disease) ?J44.9 - Chronic obstructive pulmonary disease, unspecified (ICD-10) Asthma ?J45.909 - Unspecified asthma, uncomplicated (ICD-10) Lymphedema ?I89.0 - Lymphedema, not elsewhere classified (ICD-10) Venous insufficiency ?I87.2 - Venous insufficiency (chronic) (peripheral) (ICD-10) Varicose veins of bilateral lower extremities with pain ?I83.813 - Varicose veins of bilateral lower extremities with pain (ICD-10) Surgical History (Updated 11/28/23 @ 14:16 by Grecia Nielsen) Status post ablation of incompetent vein using laser ?Z98.890 - Other specified postprocedural states (ICD-10) H/O gastric sleeve ?Z90.3 - Acquired absence of stomach [part of] (ICD-10) Family History (Updated 11/06/23 @ 09:08 by Estefania Dhaliwal) Other Family history not known due to adoption Social History (Updated 11/06/23 @ 09:09 by Estefania Dhaliwal) Within the past year, how often did you have a drink containing alcohol: never Score interpretation: A score less than 4 is consistent with normal alcohol consumption. Smoking status: Never smoker Non-prescribed substance use: denies use Meds Home Medications and Allergies Home Medications ?Medication ?Instructions ?Recorded ?Confirmed ?Type albuterol sulfate 90 mcg/actuation 1 inh inhalation Q6H 11/06/23 11/06/23 History aerosol inhaler aripiprazole 20 mg tablet (Abilify) 20 mg PO DAILY 11/06/23 11/06/23 History cetirizine 10 mg capsule 10 mg PO DAILY PRN angioedema 11/06/23 11/06/23 History citalopram 20 mg tablet (Celexa) 10 mg PO DAILY 11/06/23 11/06/23 History fluticasone propionate 110 1 inh inhalation BID 11/06/23 11/06/23 History mcg/actuation HFA aerosol inhaler levothyroxine 150 mcg tablet 75 mcg PO DAILY 11/06/23 11/06/23 History (Euthyrox) lorazepam 0.5 mg tablet (Ativan) 0.5 mg PO DAILY 11/06/23 11/06/23 History oxybutynin chloride 10 mg 10 mg PO DAILY 11/06/23 11/06/23 History tablet,extended release 24 hr oxycodone-acetaminophen 5 mg-325 1 tab PO DAILY 11/06/23 11/06/23 History mg tablet (Endocet) rivaroxaban 20 mg tablet (Xarelto) 20 mg PO DAILY 11/06/23 11/06/23 History trazodone 100 mg tablet 50 mg PO DAILY 11/06/23 11/06/23 History zolpidem 5 mg tablet (Ambien) 11/06/23 History Allergies Allergy/AdvReac Type Severity Reaction Status Date / Time No Known Drug Allergies Allergy Verified 10/04/23 14:35 Exam Narrative Exam Narrative: Trino Chaves MD personally performed the services described in this documentation, as scribed by Wild Slade RN in my presence and it is both accurate and complete. Wild Chaves RN, am scribing for, and in the presence of, Dr. Trino Israel and in the presence of the patient. Constitutional Documenting provider has reviewed patient's vital signs: yes Common normals: oriented x3 Lymph Lymphatic: no lymphedema noted Cardio Common normals: regular rate Rate: regular rate Peripheral pulses: posterior tibial pulses present and dorsalis pedis pulses present Extremity Common normals: normal capillary refill General: edema Right lower extremity: upper leg and lower leg Left lower extremity: upper leg and lower leg Neuro Common normals: oriented x3 Assessment and Plan Assessment and Plan (1) Varicose veins of bilateral lower extremities with pain: Plan f/u evaluation with physician along with right leg limited u/s Trino Chaves MD personally performed the services described in this documentation, as scribed by Wild Slade RN in my presence and it is both accurate and complete. Wild Chaves RN, am scribing for, and in the presence of, Dr. Trino Israel and in the presence of the patient. Procedures Procedure Instructions Procedures Right leg microfoam chemical ablation/Varithena: Risks and benefits of the procedure were discussed at length and informed written consent was obtained.? Time-out procedure was performed and the correct patient and procedure were confirmed.? Staff present during time-out: Wild Slade RN and Trino Israel MD.? Patient prepped and procedure performed in usual sterile fashion.? Patient was placed in Trendelenburg prior to Polidocanol/Varithena injections. Sclerosing Agent:?? cc 1% Polidocanol/Varithena Site Injected: right leg: Number of Injections:? The patient tolerated the procedure well without complication.? Hemostasis was obtained and thigh-high compression stocking was applied with foam pads.? Instructed patient to wear stocking for at least 96 hours and sleep with it and only remove for showering.? The patient was instructed to? wear stocking for 2 weeks.? Patient verbalizes understanding and states they will comply.? Patient was given post-procedure instructions. Patient was discharged in good condition.? Scheduled to undergo limited venous ultrasound and? exam on
--- NOTE | 2024-01-15 11:39 | W.VEIN ---
Discharge Plan Discharge Disposition: Home, Self-Care Discharge Medications: No Action lorazepam [Ativan] 0.5 mg tablet 0.5 mg PO DAILY cetirizine 10 mg capsule 10 mg PO DAILY PRN (Reason: angioedema) aripiprazole [Abilify] 20 mg tablet 20 mg PO DAILY albuterol sulfate 90 mcg/actuation HFA aerosol inhaler 1 inh inhalation Q6H Xarelto 20 mg tablet 20 mg PO DAILY Rx Instructions: must administer with evening meal fluticasone propionate 110 mcg/actuation HFA aerosol inhaler 1 inh inhalation BID oxycodone-acetaminophen [Endocet] 5-325 mg tablet 1 tab PO DAILY zolpidem [Ambien] 5 mg tablet citalopram [Celexa] 20 mg tablet 10 mg PO DAILY trazodone 100 mg tablet 50 mg PO DAILY levothyroxine [Euthyrox] 150 mcg tablet 75 mcg PO DAILY oxybutynin chloride 10 mg tablet extended release 24hr 10 mg PO DAILY Plan of Treatment: f/u evaluation with physician along with right leg limited u/s Patient Instructions: Polidocanol (By injection) (Gabriel Sullivan) Print Language: Luxembourgish
--- NOTE | 2024-01-28 10:18 | VEINCLINIC_ITS ---
Vital Signs 01/29/24 14:58 BP 136/70 BP Location Right Brachial BP Position Sitting BP Cuff Size Adult BP Source Manual Cuff Respiration 20 Pulse 69 Pulse Source Monitor Pulse Oximetry (%) 95 Oxygen Delivery Method Room Air Comment The patient's blood pressure is elevated. Varicose Veins Patient in today for microfoam chemical ablation right leg Herman Chaves MD personally performed the services described in this documentation, as scribed by Wild Slade RN in my presence and it is both accurate and complete. IWild RN, am scribing for, and in the presence of, Dr. Herman Patiño and in the presence of the patient. medial thigh: bilateral, knee: bilateral, calf: bilateral, ankle: bilateral and munoz: bilateral burning and sharp 6 11 years Worsened in recent months: Yes standing and sitting bed rest, elevating extremities and compression stockings Reports heaviness, edema and leg edema History of lower extremity trauma: No Superficial thrombophlebitis: No Family history of varicose veins: unknown Has patient had previous lower extremity venous surgery: No Patient has previously received the following treatment(s) for lower extremity varicose veins: Reports none Does patient have a history of : not applicable Does patient intend to have future pregnancies: not applicable Has patient had lower extremity venous scan with relux testing: Yes Support hose used: Yes Problems walking or doing physical activity: Yes How does it affect you: 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 Wild Chaves RN, am scribing for, and in the presence of, Dr. Herman Patiño and in the presence of the patient. Status of ROS 10 or more systems reviewed and unremark able except as noted in history and below Cardiovascular Reports: edema and swelling of feet/ankles Musculoskeletal Reports: extremity pain and extremity swelling Integumentary/Breast Reports: redness, non-healing lesion and changes in skin color [facility] Medical History (Updated 12/31/23 @ 14:44 by Wild Slade) Thrombophlebitis of superficial veins of left lower extremity ?I80.02 - Phlebitis and thrombophlebitis of superficial vessels of left lower extremity (ICD-10) Phlebitis and thrombophlebitis of superficial vessels of lower extremities, bilateral ?I80.03 - Phlebitis and thrombophlebitis of superficial vessels of lower extremities, bilateral (ICD-10) Phlebitis and thrombophlebitis of superficial vessels of right lower extremity ?I80.01 - Phlebitis and thrombophlebitis of superficial vessels of right lower extremity (ICD-10) Non-healing lumpectomy wound ?T81.89XA - Other complications of procedures, not elsewhere classified, initial encounter (ICD-10) Other reconstructive surgery as the cause of abnormal reaction of the patient, or of later complication, without mention of misadventure at the time of the procedure ?Y83.4 - Other reconstructive surgery as the cause of abnormal reaction of the patient, or of later complication, without mention of misadventure at the time of the procedure (ICD-10) Cubital tunnel syndrome ?G56.20 - Lesion of ulnar nerve, unspecified upper limb (ICD-10) Pacemaker ?Z95.0 - Presence of cardiac pacemaker (ICD-10) Obesity ?E66.9 - Obesity, unspecified (ICD-10) Hypothyroidism ?E03.9 - Hypothyroidism, unspecified (ICD-10) Osteoarthritis ?M19.90 - Unspecified osteoarthritis, unspecified site (ICD-10) DVT (deep venous thrombosis) ?I82.409 - Acute embolism and thrombosis of unspecified deep veins of unspecified lower extremity (ICD-10) Arrhythmia ?I49.9 - Cardiac arrhythmia, unspecified (ICD-10) PVD (peripheral vascular disease) ?I73.9 - Peripheral vascular disease, unspecified (ICD-10) COPD (chronic obstructive pulmonary disease) ?J44.9 - Chronic obstructive pulmonary disease, unspecified (ICD-10) Asthma ?J45.909 - Unspecified asthma, uncomplicated (ICD-10) Lymphedema ?I89.0 - Lymphedema, not elsewhere classified (ICD-10) Venous insufficiency ?I87.2 - Venous insufficiency (chronic) (peripheral) (ICD-10) Varicose veins of bilateral lower extremities with pain ?I83.813 - Varicose veins of bilateral lower extremities with pain (ICD-10) Surgical History (Updated 01/29/24 @ 15:02 by Wild Slade) S/P sclerotherapy of varicose veins ?Z98.890 - Other specified postprocedural states (ICD-10) ?Z86.79 - Personal history of other diseases of the circulatory system (ICD- 10) S/P sclerotherapy of varicose veins ?Z98.890 - Other specified postprocedural states (ICD-10) ?Z86.79 - Personal history of other diseases of the circulatory system (ICD- 10) Status post ablation of incompetent vein using laser ?Z98.890 - Other specified postprocedural states (ICD-10) H/O gastric sleeve ?Z90.3 - Acquired absence of stomach [part of] (ICD-10) Family History (Updated 11/06/23 @ 09:08 by Estefania Dhaliwal) Other Family history not known due to adoption Social History (Updated 11/06/23 @ 09:09 by Estefania Dhaliwal) Within the past year, how often did you have a drink containing alcohol: never Score interpretation: A score less than 4 is consistent with normal alcohol consumption. Smoking status: Never smoker Non-prescribed substance use: denies use Meds Home Medications and Allergies Home Medications ?Medication ?Instructions ?Recorded ?Confirmed ?Type albuterol sulfate 90 mcg/actuation 1 inh inhalation Q6H 11/06/23 11/06/23 His tory aerosol inhaler aripiprazole 20 mg tablet (Abilify) 20 mg PO DAILY 11/06/23 11/06/23 History cetirizine 10 mg capsule 10 mg PO DAILY PRN angioedema 11/06/23 11/06/23 History citalopram 20 mg tablet (Celexa) 10 mg PO DAILY 11/06/23 11/06/23 History fluticasone propionate 110 1 inh inhalation BID 11/06/23 11/06/23 History mcg/actuation HFA aerosol inhaler levothyroxine 150 mcg tablet 75 mcg PO DAILY 11/06/23 11/06/23 History (Euthyrox) lorazepam 0.5 mg tablet (Ativan) 0.5 mg PO DAILY 11/06/23 11/06/23 History oxybutynin chloride 10 mg 10 mg PO DAILY 11/06/23 11/06/23 History tablet,extended release 24 hr oxycodone-acetaminophen 5 mg-325 1 tab PO DAILY 11/06/23 11/06/23 History mg tablet (Endocet) rivaroxaban 20 mg tablet (Xarelto) 20 mg PO DAILY 11/06/23 11/06/23 History trazodone 100 mg tablet 50 mg PO DAILY 11/06/23 11/06/23 History zolpidem 5 mg tablet (Ambien) 11/06/23 History Allergies Allergy/AdvReac Type Severity Reaction Status Date / Time No Known Drug Allergies Allergy Verified 10/04/23 14:35 Exam Narrative Exam Narrative: Herman Chaves MD personally performed the services described in this documentation, as scribed by Wild Slade RN in my presence and it is both accurate and complete. IWild RN, am scribing for, and in the presence of, Dr. Herman Patiño and in the presence of the patient. Constitutional Documenting provider has reviewed patient's vital signs: yes Common normals: oriented x3 Lymph Lymphatic: no lymphedema noted Cardio Common normals: regular rate Rate: regular rate Peripheral pulses: posterior tibial pulses present and dorsalis pedis pulses present Extremity Common normals: normal capillary refill General: edema Right lower extremity: upper leg and lower leg Left lower extremity: upper leg and lower leg Neuro Common normals: oriented x3 Assessment and Plan Assessment and Plan (1) Varicose veins of bilateral lower extremities with pain: Plan f/u evaluation with physician along with right leg limited u/s Herman Chaves MD personally performed the services described in this documentation, as scribed by Wild Slade RN in my presence and it is both accurate and complete. Wild Chaves RN, am scribing for, and in the presence of, Dr. Herman Patiño and in the presence of the patient.. Procedures Procedure Instructions Procedures Right leg microfoam chemical ablation/Varithena: Risks and benefits of the procedure were discussed at length and informed written consent was obtained.? Time-out procedure was performed and the correct patient and procedure were confirmed.? Staff present during time-out: Wild Slade RN and Trino Israel MD.? Patient prepped and procedure performed in usual sterile fashion.? Patient was placed in Trendelenburg prior to Polidocanol/Varithena injections. Sclerosing Agent:??15cc 1% Polidocanol/Varithena Site Injected: Right lecc varithena administered in to a 6mm varicose vein distal anterior lower leg 7cc varithena administered in to a 5mm varicose vein mid anterior lower leg Number of Injections:? 2 The patient tolerated the procedure well without complication.? Hemostasis was obtained and thigh-high compression stocking was applied with foam pads.? Instructed patient to wear stocking for at least 96 hours and sleep with it and only remove for showering.? The patient was instructed to? wear stocking for 2 weeks.? Patient verbalizes understanding and states they will comply.? Patient was given post-procedure instructions. Patient was discharged in good condition.? Scheduled to undergo limited venous ultrasound and? exam on 02/05/2024 Herman Chaves MD personally performed the services described in this documentation, as scribed by Wild Slade RN in my presence and it is both accurate and complete. Wild Chaves RN, am scribing for, and in the presence of, Dr. Herman Patiño and in the presence of the patient.
--- NOTE | 2024-01-28 10:21 | P.DS_ITS ---
Discharge Plan Discharge Disposition: Home, Self-Care Outpatient Diagnostics: VC Facility EST LMTD (Routine) Timeframe: 2 Weeks Facility: [facility] - Location[facility] Ordered By: Herman Patiño VC EXT Venous RT LMTD (Routine) Timeframe: 2 Weeks Facility: [facility] - Location: [facility] Center Ordered By: Herman Patiño Follow Up Appointments: 02/05/2024 Plan of Treatment: f/u evaluation with physician along with right leg limited u/s Patient Instructions: Polidocanol (By injection) (Asclera, Varithena) Print Language: Grenadian Discharge Date/Time: 01/29/24 15:06
--- NOTE | 2024-01-29 14:08 | VEIN_ITS ---
The [address] [address] Patient Name: YRN RICARDO MRN: [id number] date: 1960 Sex: M Assigned Patient Location: Current Patient Location: Accession/Order Number: [id number] Exam Date: 01/29/2024 14:11 Report Date: 01/29/2024 15:19 At the request of: LEONID SCOTT Procedure: VC INJ Foam Sclerosant WUS MINISTER ASSISTANT PROCEDURE: VC INJ Foam Sclerosant WUS MINISTER ASSISTANT HISTORY: I80.03 - Phlebitis and thrombophlebitis of superficial ve... Pre-operative Diagnosis: CEAP class C6 venous insufficiency with pain, tenderness, edema and incompetent branch saphenous vein(s), chronic venous insufficiency right leg secondary to venous incompetence Post-operative Diagnosis: CEAP class C6 venous insufficiency with pain, tenderness, edema and incompetent branch saphenous vein(s), chronic venous insufficiency right leg secondary to venous incompetence Procedure Performed: 1. Ultrasound-guided microfoam chemical ablation with Varithenaregistered 2. Intraoperative ultrasound guidance Physician: Herman Patiño M.D. Anesthesia: None Indications for Procedure: 63 year old male. Symptoms including lower extremity skin changes, wounds, swelling, aching, heaviness for many years despite conservative medical therapy including medical compression stockings, exercise and analgesics. Prior procedures include endovenous laser ablation and microfoam chemical ablation. Multiple incompetent varicosities of the right leg. Duplex scan showed reflux and enlarged diameters up to 6 mm. The patient underwent informed consent including management options where the complications of infection, bleeding, pain, and skin injury were discussed. Particular attention was spent discussing thrombus extension and deep vein thrombosis as well as the possibility of pulmonary embolus and treatment with oral or injectable blood thinners. Procedure: The patient walked to the procedure room. All applicable staff donned appropriate apparel. A procedure timeout was performed to confirm correct patient, correct extremity, correct procedure, and correct room set-up including presence of all applicable supplies, devices, and drugs. A duplex ultrasound, performed by myself confirmed the location and incompetence of branch saphenous varicosities and their course was marked on the skin together with the dilated tributaries. The extent of treatment of the vein and the associated varicosities was determined through ultrasound mapping. The skin was prepped and then punctured with a butterfly needle and advanced under ultrasound guidance. The Varithenaregistered canister was activated and the canister was primed and purged as required in the instructions for use. Varithenaregistered was drawn into a sterile syringe. Varithenaregistered was slowly administered at 0.5-1.0 cc/second with close observation by ultrasound of its course in the vessels. Total volume utilized was: 15 mL (8 mL into a 6 mm varicosity distal anterior lower leg; 7 mL into a 5 mm varicosity mid anterior lower leg). Following administration of Varithenaregistered the leg was elevated and the patient was asked to repeatedly dorsiflex the ankle to limit flow of Varithenaregistered into perforating veins. Once appropriate spasm had been confirmed in the treated veins, the vascular catheter was removed from the leg and light pressure was applied over the puncture site for hemostasis. The common femoral and deep superficial veins were then evaluated for flow and compressibility prior to dressing placement. The lower extremity was kept elevated at 45 degrees above the horizontal and cording material was applied over the saphenous segments and tributaries to allow for eccentric compression over the target vessels including the targeted saphenous vein(s). A multilayer dressing was applied consisting of foam pads, coban and thigh-high 20-30 mm Hg compression elastic support hose were placed on the patient. The leg was lowered only after compression had been applied and the patient was immediately ambulatory. The patient ambulated 10 minutes under supervision and was without apparent concerns at time of release. Post-care instructions include advising patient to keep post-treatment bandages in place and dry for 48 hours, avoid extended periods of inactivity, avoid heavy exercise for one week, wear compression stockings on the treated leg continuously for two weeks, to walk daily for 10 minutes over the next month. The patient was instructed to take an anti-inflammatory medicine as needed and to follow up for color duplex scan of the Saphenous veins, the treated branch saphenous varicosities, the adjacent deep veins, and additional treatment within 7 days. PERSONNEL: Wild Slade RN Electronically authenticated by: HERMAN PATIÑO Date: 01/29/2024 15:19
--- OUTSIDE RECORDS SUMMARY | 2024-01-29 14:19 | XMS_ITS | CCD ---
Author Organization [facility] Inform ion Partnership [facility] Care Team Providers Care Bit Grinder Name Role Phone SERAFIN SHEARER Referring Unavailable LESLY MELCHOR Primary Care Unavailable SERAFIN SHEARER Referring Unavailable LESLY MELCHOR Primary Care Unavailable SERAFIN SHEARER Admitting Unavailable SERAFIN SHEARER Attending Unavailable LESLY MELCHOR Primary Care Unavailable Lesly Melchor Primary Care Provider CONSUELO DELGADILLO Referring Unavailable LESLY MELCHOR Primary Care Unavailable Lesly Melchor Primary Care Provider Lesly Melchor MD Primary Care Provider [phone] LESLY MELCHOR Referring Unavailable LESLY MELCHOR Primary Care Unavailable OLAF CAIN Attending Unavailab LESLY Concepcion Referring Unavailable LESLY MELCHOR Primary Care Unavailable Melo Quiñones Attending Unavailab Melo Frederick Admitting Unavailab Lesly Concepcion Primary Care Unavailable Dolce, [...] KAREN ZAPATA, LESLY To Attending Unavailable KAREN ZAPTAA, LESLY To Primary Care Unavailable LESLY MELCHOR MD Attending Unavailable PETER Redmond Attending Unavailable PETER Redmond [...] Redmondine Admitting Unavailable PETER Redmond Attending Unavailable LESLY MELCHOR MD Primary Care Unavailable PETER Redmondine Admitting Unavailable PETER Redmond Attending Unavailable LESLY MELCHOR MD Primary Care Unavailable PETER Redmondine Admitting Unavailable PETER Redmond Attending Unavailable LESLY [...] Admitting Unavailable PETER Redmond Attending Unavailable LESLY EMLCHOR MD Primary Care Unavailable Allergies Allergy Classification Reported Allergen(s) Allergy Type Date of Onset Reaction(s) Facility (1 source) No Known Medication Allergies; Translations: [No Known Medication Allergies] Propensity to adverse reactions to drug (disorder) [facility] Repository Medications Current Medications Medication Drug [...] hours as needed for pain. 0 Active [id number] 200 actuat albuterol 0.09 mg/actuat metered dose [...] 07/23/2018 Active take 1 capsule by mo [facility] in the morning levothyroxine sodium (TIROSINT) 150 [...] Test Name Value Interpretation Reference Range Facility Lab - Other Lab Resultson Lab - Other Lab Results [id number] #1.00OTGTIFF [facility] Coding Summaryon 12-25-2023 Coding Summary HTMLBase 64 ObcpegkzQNc4wJc+PGhl YWQ+YG4YVHSdR10pgCXh fG6fM1UDWGtXPdmeHIUQ TYuDJhNkpeSiSU1ibGPw ZXJu IC8+QQ1uCNEoDflbjNGj j7Y8oEL0G38qmr6uTLdi lTQ7RQQrApOkxxvsn2sh aBh8CHekEpgpKgEu NIHywQ08XOR6tU00Pe39 fKQmeFLne2cisZs7SjMs WFPnGRP5lWlkAKujk7My ZDAwD90utESyd4Z6 IGNvbGxhcHNlOyBlbXB0 tY6tIIjzaoquf6ytvpvu Fwz9vz37mZUuo9E4sKN1 A1RgdrU2KBIxnNEq SbfivIWTjP8pkhpan7oo fzacAvWuZHFuVKa4FIl0 GIOuuQerMmXiOH58ODA5 SCUvxfBxX2QcZAXm bSapSiE7y0G5Uz0OR2QW YeawA6PXGQMBVAxswFU+ UH62kr75L7ItCwnpPow5 YBWxSIZ0hID3iG8y GQMoFKmnz3A4pMY9Z2Xo tmHxzp6bp6wiREVnMBzz N12ijQFxr7D4REMemNU1 NDXenAavMxDrxS03 Oyc+GMFymQkch8PnHuun n5pig6gawFw3OswvUNTc jiVffExlUUX8u7GlEl5d YVBmjXJ4lRA2xB2y UeFkSnW3SObkB906GhUv fEMxWjheY64mP7WouKI+ ZEAiZjv6QODemVldRN4p V8DyRRRfaxnflLZk nCukWV1eWTHzpjnuHNTr aR4eIVAsM1a7CnFyXyZ2 HBomJ8LpWTFrnvnsDb61 rM5xJwQbAjO3YMiv J1EiziE4JMBtuLJdLHtb ZNZ7S66dj6Q5GKOgNWIw BIT7zHH1iJ7rsCelrptz bGVmdDsgdmVydGlj FHbtOZxbA847BVBieQwu PkNvZGluZyBEYXRlOiAg MDgvMjEvMjAyNDwvdGQ+ YYQnQGD5wZibNHMz wYIaRNadRw5jaAqanVng NS0wOLXcbpabULHchD9h ZUTpwHVebKhpEI1oWLBy oftsw689LfUvFTI5 EKZsrAZtN6EdyJ9eDgPy UOCsPGCtD8TxyMBfTMfs W236JLorZjL3MGQfccLe X7HaCBIoaArfVsX0 p1L6Jx8Ub2FimzemY7Hk pHYoAuUxWgjcMNm1M2Jt PjwvdHI+PN99UCYuCX26 AJa9KBD8dUhjXHnk WYLuG3YrwR6wRdPyLUEo ZGRkOyc+PHRhYmxlIHdp ZHRoPScxMDAlJyBzdHls OK8uNu7nQEOnIRJx bAgzkDSfCeYhb3nkHKCs BXvqRF4mwEbkE7IesHS7 PHTtj6j5Bs48T18wA4Pr dXA+ABBxbFE2xQD0 jG5hOgGeNmW6MQyqV407 LwNhoQSaMgqlk0cka5wo sOi3YwE9PIGwvaBmkHwb TTP5k9ZkGy94N13l IHdpZHRoPSIxNSUiIHZh mEyozt9jxG7iOf4+PGNv oEV7vJP4xE4rCbRjNpI1 IJuuG832LsQxsJGu Biiic7zdz5czmBi4LrCu BMGnlrYtcKpdQDE1p2Vv Bv98L1ZziDbnq0AnNpz1 db89cBGhv3J3nCT1 T6XyDATkskeilDXjdWog HT5lNBHuaovoAJBblA7r FUYzK3q3KfAgOfA7MCtf V4EateN1OMDypTHc ZTSknFIUdF0pktfnx5xo fcqaYaRjHUIiJGz0XPo9 DNPzxLyjArVcWFM3JoF7 PIA9cEYmrK3grAng puxtcX3uSso+PDA7hYJb vTALGB2gJzmpoQL+PHRk MGW7kDgdLVidLQMrkT9i AKLvS5j6JtEbGuR9 WOjoR4EkhyX9GLRteBNn IBPsxNVGcV9yzjtxh8av nxqmFsWlIXTnEMy0VCa7 LWFsaWduOiBsZWZ0 XsB5UMV9aACllQ7mpTba ialokM8uBhd+QmlydGgg NHG9GBg1R0BgXmy3WYUr jClgAG9psPGkSBvo Tr2vyExjfZhjSW1uOTXn weper580KsRoo8fuUWAu mMRsULkuQLS7T97dz4V6 MECiKFDqVSC2oUE9 sT4ykEoqefhfnSAehDyz msCscHlsQTiqTOvyL375 VHIgkLomKxFyAXa0M8Ty Vxp8KSOllLqwJS2u gZItTOanRj1viOwgkJew KB5gRMEgmzylm157QxIh c1wkJURjzTXqRKgkBUD4 A69sl3O6VDGcYHLb ZBQ6tIW3wC8ctXrytcyl bGVmdDsgdmVydGljYWwt IGwiA713GCQzwRkiLtFg cNa7R5LfZdv2BCGk bZtoMH4guSLoFUwsGr5u wZybtRrdYC7oODXgbjnn g900TpXpp0hnGVYugNWy DZshIKO9Y41pw9G7 TZDoXXNpHYK1yAC3pD9s bGlnbjogbGVmdDsgdmVy hGliZGxtWHvfA419FZFr cDsnPlBhdGllbnQg ZAopTJb9K6XpNrsttXT+ WE80FWYuSH37yXOhfUIi v0ineKd5KrMjTTBdMNI4 kGfwWOtlb9LcZBOa P60whGHmk6X2JULnfIsq aVPeBuPddLS1cT6kKIvr hrnyu6uwchqoTnaut1eg eu93aD02M06vWMzr ZHRoPSIzMCUiIHZhbGln lf3uyQ8oAt6+PGNvbCB3 dTR0jU7jWKXrXbY6OUaw A400OcGrzHDkXoxu t6gab7xtwVm2DmY9GWSt fbUboOflDRX5u4PaOf92 B23qIYvjGTAbIDArSATb KMRlpXljlj4pdD5v Ii8+ZTMnwXX5yEO9gE2c RaSoDrM2NOjhK057MmYt gJRtPdjnX46zA7IjcPK+ BLLtFsm6HRDndVoj YK1idDXkORwhBc7wLPY0 UgRaRvLcADcyX2NvFUUr zldkezmlpTA7BJXwGGOr tH54Nt9stSgxFHRj dCKExT0tqotst4tgdlcf FhHqFTUtHCr5PMq0YPPp vZcrMzShLOP6XmF6GXF2 xDMmrA7nrYlvuysu mQ0yF8YrEQKggqvzBi20 jE4eKmCrLmB3YXbbYlc+ H6DYAntiFY9QT7iGTRmz SzwvdGQ+PHRkIHN0 uVbqJOvoARSdlT8pXGAt T8b9QyQfHyX0WFrsQ4Rm LCYlqmbuJb64hY2oFzHw VcU0PMvqU0RiloN3 IFKcbBVdQIgkKLA8L42o d4K5QOSkYHRuPDZ7qES1 tR1uiPexzqixrWJhoMov dmVydGljYWwtYWxp B615BLLuaClcBfXnHbF7 TjN5NoS3Y1FpEvu3EVGv tJufQW7dtYMdDXfkWe4m dSwcfPutLJ0lMARw bvfiFJXiwE6zRFLuvERr wJceNH8fPKUdvqzkg113 NaIgOXB6ZDZhjMVtY1Gy qF6iFjUcZFUjFJEv F3QlwJDoUYazM792EIee OuO7TAFwpnNdY7ImBHVj oFboXxO3h6Z9Sh18LPZJ ZWFyczwvdGQ+PHRk FVL9gWhxOMauGRPnrB7p QJQrR3r4UrHeUvX6GAxo D7MxXAFsdnmnXx73nK0j NtUiAyY4AYaeU5Ex dfJ3FYPjsXLxVNmxAZP0 G07lt5E1EDZfNLFoSIT6 mBA1uE0hhHyormluyPPk dDsgdmVydGljYWwt VXvaP421JREnyFqlNa3E VHE6I5YxClq4QFPpqIil AV6mlEOuRGakLx1csGdo pSmiAR8xXNByijcx ZCJeoE8bKOEhhQOlnNub ZJ1rSUGkshlco146QkJr KDA6QXJndMQxT6IcsU4f GuDfJQDbUHIcM5Kp qWVnQVunE898BCigGlL2 QHXyxjRrR8QuIXSffFhj MkO5u4R9Uk0GBQvqhNL+ XH44su44H4YgFjlr Epi9IAObOFD5oLG2lB7s ZDPeMRtty7M1bUS6A5Ti mvArzj8np7oeWBQgYXoy C90mjIEso4Q1OLXg cPP2PIQitTuaDoObaJ21 Oyc+RKKqbSepj0WoGdns h5jws2ieqNq3JyQqGSDq ncHkgMxdSAH5i8Rd Ej59D41bRUzsNHMrKQKe ALHvLMRtwSchni3igL3u Ii8+SVOoqAD4dBU1pO8g OnZaDuC9SQpfC386 VyUcdOBwHnblk5snu1sy qUa5KqCdQWWjplGijAhd RMF9a4PaSz45W0AkwNhh s7CiPme9ou68pEWe k7U1dIG1D2OyGMMgvnzy eZViwBvlLX7dWMJadorm KJLewE6kMZOoO8p2ZoKu DiT1FLdiN0NoziO5 JMRloRYfSAUpbTZTiL3g ucawz7gccxpvAgCmXOPv PGn4RTu4NWQxxBufFgXa RDQ8PiK8PWS7lKLb zM3nyOxjdykcnX1aUin+ PUi6y8ygqEDgXC3cjGE2 PA44IB16tJVmn1M0cKH5 O9TjVOOrnupvnhep sXF8IFTmFKZglY27Ho7y zPqaVj0bTGPqGDI6SSTp zDUzA6OyiK5vDnYeMGAs RDVsA9JtaLNtPIjb H276SJohEfY0RDCwoaZt Q3EhSOMxtOuuLaZ2j8L5 Cy4FVJ94UX08DN22rQEo g0P8rMX5X0HmFRFv wjiruwlazDM5RRSbZYFd bL54Mm9wzOvyUp2bMQMo UHD3ODPvvGMbP6UnnT7d GrHrLDSvVOAqG0Wd hYQaZPzfF780XTrjGkN8 BQXcyiEwN2UvQXYsyWrm ToV0r2J0Di5UNs75ZY10 SI61nDJwy4R0xLY0 E5CjPKKkqjxqreykhKR6 VVCrCFCtmU56Mc2ckSfz Gm4iYRCnAIJ5ITIfrKHz C5ZlmH1bReGnSDJt DFXzA1DtlHBfXOqfP228 AWhgZfB4YMNswxLpG1Ja IFFxlZdxVqO5n5F7Mu4W BFtdvzd9E0WlMukp dHI+HG33AKXuDG51kQSl nLYnw9gzyKd8ZePfDCXx VDI2rOmvEVabv5DyGRIb D30pwCIji3I3AYTu bGx (more content not included)... [facility] Outside Recordson 12-25-2023 Outside Records [id number]# [id number] [facility] Ambulatory Patient Summaryon 12-24-2023 Ambulatory Patient Summary [address], [address] - Visit Summary For YRN RICARDO Age: 63 years Sex: MALE : 1960 Address: [address] [place], [address] Home: Work: -- Primary Care Provider: LESLY MELCHOR MD Race: White Ethnicity: Not or Language: Togolese Health Plan: 1?[facility], 2?[facility], 3?[facility] Reason for Visit: MEDICARE WELLNESS Prescription Information: If you have been given a prescription for narcotics, seek immediate medical attention if you have any difficulty breathing or any sudden status changes such as confusion and sleepiness. If you or anyone you know is experiencing suicidal thoughts, mental health, alcohol and/or drug addiction problems; contact the [facility] 26/11 Crisis Hotline -Text 4HOPE to 790956. Follow-Up Information With: Address: When: LESLY MELCHOR MD [facility] [address] [place] [address]/ [address] [place] [address] In 3 months Future Appointments [facility] Appt. Date: 03/26/2024 11:00 AM Scheduled Provider: Lesly Melchor MD [address] [place] [address] [place], [address] Future Orders No future orders Additional Goals and Instructions: Vitals and Measurements this Visit (last charted value for your 12/24/2023 visit) Vital Signs This Visit Peripheral Pulse Rate: 78 bpm Pulse Site: Pulse Oximetry Systolic Blood Pressure: 134 mmHg Diastolic Blood Pressure: 80 mmHg Cuff Location: Left arm SpO2: 95 % Measurements This Visit Height/Length Measured: 186 cm Height/Length Measured (inches): 73.23 in Weight Measured: 173 kg Weight Measured (lbs): 381.399 lb Weight Dosin.000 kg BSA: 2.99 m2 Body Mass Index: 50.01 kg/m2 [place] Body Weight Calculated: 80.425 kg BSA Measured: 2.99 m2 Diagnoses This Visit Medicare annual wellness visit, subsequent (Z00.00) Osteoarthritis of knee (M17.10) Laboratory or Other Results This Visit (last charted value for your 12/24/2023 visit) No Laboratory or Other Results This [...] by mouth) every day, 3 refills authorized CETIRIZINE 10MG TAB 10 Tablet (Durable Medical Equipment for Prescription) Take 1 tab(s) Oral (given by mouth) every day, ergocalciferol 1.25 mg (50,000 intl units) oral capsule (ergocalciferol) Take 1 cap(s)(50,000 International_Unit) Oral (given by mouth) every 7 days for 5 week(s), 0 refills authorized Instructions: MAGRU Flovent HFA 110 mcg/inh inhalation aerosol (fluticasone) 10 refills authorized Instructions: INHALE 2 PUFFS BY MOUTH TWICE DAILY *RINSE MOUTH AFTER USE* levothyroxine 150 mcg (0.15 mg) oral tablet (levothyroxine) Take 1 tab(s) Oral (given by mouth) every day, oxybutynin 10 mg/24 hr oral tablet, extended [...] tab(s)(650 Milligram) (more content not included)... Normal [facility] Patient Handouton 12-24-2023 Patient Handout Urology Health Maintenance, Male Adopting a healthy lifestyle and getting preventive care are important in promoting health and wellness. Ask your health care provider about: ? The right schedule for you to have regular tests and exams. ? Things you can do on your own to prevent diseases and keep yourself healthy. What should I know about diet, weight, and exercise? Eat a healthy diet ? Eat a diet that includes plenty of vegetables, fruits, low-fat dairy products, and lean protein. ? Do not eat a lot of foods that are high in solid fats, added sugars, or sodium. Maintain a healthy weight Body mass index (BMI) is a measurement that can be used to identify possible weight problems. It estimates body fat based on height and weight. Your health care provider can help determine your BMI and help you achieve or maintain a healthy weight. Get regular exercise Get regular exercise. This is one of the most important things you can do for your health. Most adults should: ? Exercise for at least 150 minutes each week. The exercise should increase your heart rate and make you sweat (moderate-intensity exercise). ? Do strengthening exercises at least twice a week. This is in addition to the moderate-intensity exercise. ? Spend less time sitting. Even light physical activity can be beneficial. Watch cholesterol and blood lipids Have your blood tested for lipids and cholesterol at 20 years of age, then have this test every 5 years. You may need to have your cholesterol levels checked more often if: ? Your lipid or cholesterol levels are high. ? You are older than 40 years of age. ? You are at high risk for heart disease. What should I know about cancer screening? Many types of cancers can be detected early and may often be prevented. Depending on your health history and family history, you may need to have cancer screening at various ages. This may include screening for: ? Colorectal cancer. ? Prostate cancer. ? Skin cancer. ? Lung cancer. What should I know about heart disease, diabetes, and high blood pressure? Blood pressure and heart disease ? High blood pressure causes heart disease and increases the risk of stroke. This is more likely to develop in people who have high blood pressure readings or are overweight. ? Talk with your health care provider about your target blood pressure readings. ? Have your blood pressure checked: ? Every 3?5 years if you are 18?39 years of age. ? Every year if you are 40 years old or older. ? If you are between the ages of 65 and 75 and are a current or former smoker, ask your health care provider if you should have a one-time screening for abdominal aortic aneurysm (AAA). Diabetes Have regular diabetes screenings. This checks your fasting blood sugar level. Have the screening done: ? Once every three years after age 45 if you are at a normal weight and have a low risk for diabetes. ? More often and at a younger age if you are overweight or have a high risk for diabetes. What should I know about preventing infection? Hepatitis B If you have a higher risk for hepatitis B, you should be screened for this virus. Talk with your health care provider to find out if you are at risk for hepatitis B infection. Hepatitis C Blood testing is recommended for: ? Everyone born from 1945 through 1965. ? Anyone with known risk factors for hepatitis C. Sexually transmitted infections (STIs) ? You should be screened each year for STIs, including gonorrhea and chlamydia, if: ? You are sexually active and are younger than 24 years of age. ? You are older than 24 years of age and your health care provider tells you that you are at risk for this type of infection. ? Your sexual activity has changed since you were last screened, and you are at increased risk for chlamydia or gonorrhea. Ask your health care provider if you are at risk. ? Ask your health care provider about whether you are at high risk for HIV. Your health care provider may recommend a prescription medicine to help prevent HIV infection. If you choose to take medicine to prevent HIV, you should first get tested for HIV. You should then be tested every 3 months for as long as you are taking the medicine. Follow these instructions at home: Alcohol use ? Do not drink alcohol if your health care provider tells you not to drink. ? If you drink alcohol: ? Limit how much you have to 0-2 drinks a day. ? Know how much alcohol is in your drink. In the [place] one drink equals one 12 oz bottle of beer (355 mL), one 5 oz glass of wine (148 mL), or one 1? oz glass of hard liquor (44 mL). Lifestyle ? Do not use any products that contain nicotine or tobacco. These products include cigarettes, chewing tobacco, and vaping devices, such as e-cigarettes. If you need help quitting, ask your health care provider. ? Do not use street drugs. ? Do not share needles. ? Ask your health care provider for help if (more content not included)... Normal [facility] .Auto Diff 12-11-2023 Auto Bath % 10 % Normal 1-12 [facility] Comment on above: Performed By: #### 7 [id number], [id number], [id number], [id number] ####[facility] (DEFAULT)[address] [place] [address] Baso Abs# 0.1 x10 Normal 0.0-0.2 [facility] Comment on above: Performed By: #### 7 018407, [id number], [id number], [id number] ####[facility] (DEFAULT)[address] [place] [address] Basophils/100 WBC (Bld) 1.4 % Normal 0.2-2.0 [facility] Comment on above: Performed By: #### 7 [id number], [id number], [id number], [id number] ####[facility] (DEFAULT)[address] [place] [address]25[address] Eos Abs# 0.4 x10 Normal 0.0-0.4 [facility] Comment on above: Performed By: #### 7 903977, [id number], [id number], [id number] ####[facility] (DEFAULT)[address] [place] [address]57[address] Eosinophils/100 WBC (Bld) 8.0 % High 0.9-4.0 [facility] Comment on above: Performed By: #### 7 222506, [id number], [id number], [id number] ####[facility] (DEFAULT)[address] [place] [address]697 Lymph Abs# 1.4 x10 Normal 1.3-2.9 [facility] Comment on above: Performed By: #### 7 618910, [id number], [id number], [id number] ####[facility] (DEFAULT)[address] [place] [address]992 Lymphocytes/100 WBC (Bld) 26 % Normal 14-48 [facility] Comment on above: Performed By: #### 7 581293, [id number], [id number], [id number] ####[facility] (DEFAULT)[address] [place] [address] Bath Abs# 0.6 x10 Normal 0.0-0.8 [facility] Comment on above: Performed By: #### 7 834342, [id number], [id number], [id number] ####[facility] (DEFAULT)[address] [place] [address]2826 Neut Abs# 2.9 x10 Normal 1.5-9.2 [facility] Comment on above: Performed By: #### 7 708786, 45442284, [id number], [id number] ####[facility] (DEFAULT)[address] [place] [address]333 Neutrophils/100 WBC (Bld) 54 % Normal 44-88 [facility] Comment on above: Performed By: #### 7 743692, [id number], [id number], [id number] ####[facility] (DEFAULT)[address] [place] [address] CBC w/ Auto Diffon 4 Erythrocyte distribution width (RBC) [Ratio] 15.4 % High 11.5-15.0 [facility] Comment on above: Performed By: #### 7 289858, [id number], [id number], [id number] ####[facility] (DEFAULT)[address] [place] [address] Hematocrit (Bld) [Volume fraction] 43.6 % Normal 34.8-51.9 [facility] Comment on above: Performed By: #### 7 373383, 76094751, [id number], [id number] ####[facility] (DEFAULT)[address] [place] [address] Hemoglobin (Bld) [Mass/Vol] 14.3 g/dL Normal 11.8-17.7 [facility] Comment on above: Performed By: #### 7 041863, 21987044, [id number], [id number] ####[facility] (DEFAULT)[address] [place] [address] Man Diff? Auto Invalid Interpretation Code [facility] Comment on above: Performed By: #### 7 848790, [id number], [id number], [id number] ####[facility] (DEFAULT)[address] [place] [address] MCH (RBC) [Entitic mass] 30 pg Normal 24-34 [facility] Comment on above: Performed By: #### 7 298895, [id number], [id number], [id number] ####[facility] (DEFAULT)[address] [place] [address] MCHC (RBC) [Mass/Vol] 33 g/dL Normal 26-37 [facility] Comment on above: Performed By: #### 7 229036, 31221269, [id number], [id number] ####[facility] (DEFAULT)[address] [place] [address] MCV (RBC) [Entitic vol] 93 fL Normal 81-100 [facility] Comment on above: Performed By: #### 7 752607, [id number], [id number], [id number] ####[facility] (DEFAULT)[address] [place] [address] Platelet 137 x10 Low 138-427 [facility] Comment on above: Performed By: #### 7 339323, 02896052, [id number], [id number] ####[facility] (DEFAULT)[address] [place] [address] Platelet mean volume (Bld) [Entitic vol] 7.5 fL Normal 6.3-10.2 [facility] Comment on above: Performed By: #### 7 981685, 14044314, [id number], [id number] ####[facility] (DEFAULT)[address] [place] [address] RBC 4.68 x10 Normal 3.70-5.30 [facility] Comment on above: Performed By: #### 7 726629, 09591341, [id number], [id number] ####[facility] (DEFAULT)[address] [place] [address] WBC 5.4 x10 Normal 3.5-10.5 [facility] Comment on above: Performed By: #### 7 000155, 69168865, [id number], [id number] ####[facility] (DEFAULT)[address] [place] [address] CMP Standardon 12-11-2023 eGFR Non AA 58 mL/min/1.73m2 Invalid Interpretation Code [facility] Comment on above: Performed By: #### 7 [id number], [id number], [id number], [id number] ####[facility] (DEFAULT)[address] [place] [address] eGFR AA >60 Invalid Interpretation Code [facility] Comment on above: Performed By: #### 7 437903, [id number], [id number], [id number] ####[facility] (DEFAULT)[address] [place] [address] 11898 Albumin [Mass/Vol] 4.0 g/dL Normal 3.5-5.0 [facility] Comment on above: Performed By: #### 7 586231, 28012493, [id number], [id number] ####[facility] (DEFAULT)[address] [place] [address] 61507 Alk Phos 79 IU/L Normal 32-91 [facility] Comment on above: Performed By: #### 7 457535, 79810228, [id number], [id number] ####[facility] (DEFAULT)[address] [place] [address] 33955 ALT [Catalytic activity/Vol] 23.0 U/L Normal 17.0-63.0 [facility] Comment on above: Performed By: #### 7 [id number], [id number], [id number], [id number] ####[facility] (DEFAULT)[address] [place] [address] AST [Catalytic activity/Vol] 27 U/L Normal 15-41 [facility] Comment on above: Performed By: #### 7 [id number], [id number], [id number], [id number] ####[facility] (DEFAULT)[address] [place] [address] Bili Total 0.8 mg/dL Normal 0.3-1.2 [facility] Comment on above: Performed By: #### 7 [id number], [id number], [id number], [id number] ####[facility] (DEFAULT)[address] [place] [address] 13192 Calcium [Mass/Vol] 8.4 mg/dL Low 8.9-10.3 [facility] Comment on above: Performed By: #### 7 [id number], [id number], [id number], [id number] ####[facility] (DEFAULT)[address] [place] [address] 12303 Chloride [Moles/Vol] 106 mmol/L Normal 101-111 [facility] Comment on above: Performed By: #### 7 255225, [id number], [id number], [id number] ####[facility] (DEFAULT)[address] [place] [address] 75996 CO2 [Moles/Vol] 29 mmol/L Normal 21-32 [facility] Comment on above: Performed By: #### 7 297482, [id number], [id number], [id number] ####[facility] (DEFAULT)[address] [place] [address] 18916 Creatinine [Mass/Vol] 1.26 mg/dL Normal 0.90-1.30 [facility] Comment on above: Performed By: #### 7 698747, [id number], [id number], [id number] ####[facility] (DEFAULT)[address] [place] [address] 23686 Glucose [Mass/Vol] 88.0 mg/dL Normal 74.0-118.0 [facility] Comment on above: Performed By: #### 7 995629, [id number], [id number], [id number] ####[facility] (DEFAULT)[address] [place] [address] 50681 Potassium [Moles/Vol] 4.1 mmol/L Normal 3.6-5.1 [facility] Comment on above: Performed By: #### 7 393724, 24108916, [id number], [id number] ####[facility] (DEFAULT)[address] [place] [address] 93762 Protein [Mass/Vol] 7.7 g/dL Normal 6.5-8.1 [facility] Comment on above: Performed By: #### 7 389491, 34853137, [id number], [id number] ####[facility] (DEFAULT)[address] [place] [address] 90784 Sodium [Moles/Vol] 137.0 mmol/L Normal 136.0-144.0 [facility] Comment on above: Performed By: #### 7 711064, 30506201, [id number], [id number] ####[facility] (DEFAULT)[address] [place] [address] 97443 Urea nitrogen [Mass/Vol] 16 mg/dL Normal 8-26 [facility] Comment on above: Performed By: #### 7 723338, [id number], [id number], [id number] ####[facility] (DEFAULT)[address] [place] [address] 78589 Albumin/Globulin [Mass ratio] 1.0 {ratio} Low 1.4-2.6 [facility] Comment on above: Performed By: #### 7 443634, 36974273, [id number], [id number] ####[facility] (DEFAULT)[address] [place] [address] 65018 Anion gap [Moles/Vol] 6.1 mmol/L Normal 5.0-19.0 [facility] Comment on above: Performed By: #### 7 519378, [id number], [id number], [id number] ####[facility] (DEFAULT)[address] [place] [address] 75083 Globulin (S) [Mass/Vol] 3.7 g/dL Normal 1.5-4.3 [facility] Comment on above: Performed By: #### 7 [id number], [id number], [id number], [id number] ####[facility] (DEFAULT)[address] [place] [address] 27666 Osmolality 274 mOsm/L Invalid Interpretation Code [facility] Comment on above: Performed By: #### 7 [id number], [id number] ####[facility] (DEFAULT)[address] [place] [address] 74139 Urea nitrogen/Creatinine [Mass ratio] 12.6 mg/mg Normal 4.6-16.2 [facility] Comment on above: Performed By: #### 7 [id number], [id number], [id number] ####[facility] (DEFAULT)[address] [place] [address] 03804 Lipid Panel Standardon 12-10 Cholesterol [Mass/Vol] 150.0 mg/dL Normal 66.0-200.0 [facility] Comment on above: Performed By: #### 7 [id number], [id number] ####[facility] (DEFAULT)[address] [place] [address] 14890 Cholesterol in HDL [Mass/Vol] 51 mg/dL Normal 40-71 [facility] Comment on above: Performed By: #### 7 [id number], [id number], [id number], [id number] ####[facility] (DEFAULT)[address] [place] [address] 80333 Triglyceride [Mass/Vol] 73.0 mg/dL Normal 0.0-150.0 [facility] Comment on above: Performed By: #### 7 148681, [id number], [id number], [id number] ####[facility] (DEFAULT)[address] [place] [address] 58488 Cholesterol in LDL [Mass/Vol] 85 mg/dL Normal 1-100 [facility] Comment on above: Performed By: #### 7 [id number], [id number], [id number], [id number] ####[facility] (DEFAULT)[address] [place] [address] 63651 Cholesterol.total/Choles terol in HDL [Mass ratio] 2.9 {ratio} Normal 0.0-4.5 [facility] Comment on above: Performed By: #### 7 [id number], [id number] ####[facility] (DEFAULT)[address] [place] [address] 98239 VLDL. 15 mg/dL Normal 5-40 [facility] Comment on above: Performed By: #### 7 [id number], [id number], [id number], [id number] ####[facility] (DEFAULT)[address] [place] [address] 43292 Provider Orderson 12-11-2023 Provider Orders [id number] 4#[email or web address] Normal [facility] Coding Summaryon 12-05-2023 Coding Summary HTMLBase 64 CetosobqDOj2cZs+PGhl YWQ+ZH3TVPMgF28mwWXf jU6uL6OLTYeWPmeuTUBE FHfSQfNjnbUoWB2heMKp ZXJu IC8+OW8sWRIjKxzosHBv t7B5jZC7L48vfo8tFYym oAY4HWCyGgYlcthgz0du pRu9QBvqCkxlYbCd IHKxvI91OGN5xW42Fs45 dAXuwBHza7dgcWj6MlDe POGbVTA4zFweIOxnt7Pa PZUrM74ooUFfo9B5 IGNvbGxhcHNlOyBlbXB0 yD2xBEanckley3rygpvc Zub9sm20fYGmm7O3uZU1 N9KfilZ9JABzlDEv IhtgnZJCpX0dnvjfy9pv aclyKoAiRAJgFXm1KLl3 WOElrApkSeVwBP56CCB6 YCNyckAuZ4EjEZTd hSqyGfM4r0T2Oc7UN3UF HmawD9ZQLBJRYDfjeYV+ ER36yg86O0WhRxgoUvk3 VTTsOIA2iXN1cY1z FNIdKEykj3B5aUJ0I6Wy lnMbiw4du4bgHPTmMPmp A40oiCXkt9U1SBKwdRP7 XAZekNnkRiJabC39 Oyc+XANwjEqnu1JaXvzy c2jce0gleAk4XhpdLLAu rcLwmUldGME0z1FlMg9u VGLyzQN5iPN2jI8t IqTwFpV1EUuoK080PoTf sPJqOdafU20sE3CvwMM+ QYNcYgl1RWAmxCayLV1l N1WiIUWrrsryrAAh aUrjMM5wXTIlirrpQHGz pC1fIEJeX6h1LjZdGmD5 WZtlP5OjFSZwxqajTs46 jS4cXhJzSqJ5BVne H9XjzyD1FETdcHUeMGsb CBL9I41jv4J8GYFcOXIl VPL4kIH4uF2htHkaxgvl bGVmdDsgdmVydGlj QEqyCUlgM178RNZmzTiv PkNvZGluZyBEYXRlOiAg MDgvMDEvMjAyNDwvdGQ+ GEQhTKM7tLaiIPFi wOBpYQiqOb1rwNeavRkz CZ5aEKBldwheJGWstD5t EAPzvLArcXqzLD2yWXPj jazdr282UkKkLIY2 ASGdqNGpM8RacK0hIpXp TJGpUSQhG9MpiUUbCRwa H819BBrmMsG0QSFjzaZp P7VdWDZetSyrBfO5 k6M3Vd1Pl0VsxkesO8Vy aNCwEqYgZpuqLFu9L7Wy PjwvdHI+KZ06KCCiQG05 TSp3HIJ4uPnzJZtr JGEuR9MjwC7kHvBtAUUw ZGRkOyc+PHRhYmxlIHdp ZHRoPScxMDAlJyBzdHls PS2sDr2pQLLoRJDz uPoiuUKnBnWvm9vsBAXs FWjbPD7lqAauY1YykMF3 UTRxg9t3Nn68B62kU5Uj dXA+NEYqyWX7hVA2 nC4oZgDjKoY4KBwyI970 HeAyuOPoBmvzd0ajr8cs tPf8WuC9SQWfftFyoTlg XVD9y6XcYa21S65m IHdpZHRoPSIxNSUiIHZh yLajwp6quZ5pMp7+PGNv wKZ2cDU4oT0hLmWvZqN9 VHdaU717WpQwnNUf Zvnwc2jfe9gqmSq8BfMs QJVucpQegIilTWU8s4Jn Ay62N3TvaHnyz8XgIal3 qu69jPGep7M8bRC2 J9UsVMNjikymnXHbgCmk DC1aKKJezewlWPLljV6c JWRpU0h4NbEjMoA7OXjx F4JnrsO2KQBzpJWh WLXtwUVVqE7ydchlu7br phncUuDnDEVhDIo2QWd5 OIRzyIasCoSmONK8TtD8 VMS9sNMxoL1vtUut mwnegW8aGbc+PUN2mURe mZRTZE8jAijppDW+PHRk XEV6cPclOIxvUJWojF4y FZVmC1r3CxNaQyH0 YDzgU2NpxcI5ZTHirRKp VRZzxEXMjT1cbuymd0mk ktkvQdAuHRDqTKp4CUx5 LWFsaWduOiBsZWZ0 WlW4KEB5rNHinY3zdNzy pbwmvV8bDdr+QmlydGgg XNB7BEt2L3MkIld8SGHn fKcdGQ7jlHViQVlq On2hxPgsqPpvEA9gELQt fkksn101JiZri7rvQBFy cFQuCFnaHXH1Z50ek4L8 WAYxBSIoGSB2qUJ3 nT4wcPpyntyyaEOurCwi wvSrgQjaBUhnIKaoA152 WSMxcSnoZcTwLLv5A3Qq Sjb8KOPesZybSB0k rXClULslUg7foOtdrTmh QQ8eKLXgkwkct787PeGb m5qqMLAzlBIqPCalYGT5 Y68jn5B4TTOnYKLr TZS4tQU4iD7wvDbqhpdu bGVmdDsgdmVydGljYWwt AHikT268YIKriTadQlUl tAn6B3FyPyt0DPTe vYihKZ0dsPKsLSnaIa7g tWpxxLccVE0dMGUnstab m459OyMcz5plIRZmhRCc DAmiDTW2Q03ef7W5 DDSePDZwGJF1dMZ5oJ9n bGlnbjogbGVmdDsgdmVy nXprMMkfLHkxE255FDZe cDsnPlBhdGllbnQg SSxxBYl8I1SnYdiukIM+ VG91PRSjCH91fBVprTIj j9rmwSr6KxVhMUQyRRR2 sBtrMTnfn6LnVHUa I54xkIGuj0I0GMVgnIsw gSYrTkEtfUX9oS1tHIlb iiped2bydeofHtpwo5lx sp37qJ30D63jEHqn ZHRoPSIzMCUiIHZhbGln mr1aqN9wJj7+PGNvbCB3 gLI6sC4aRGKdRtM2MMmy C575WrKsdHCjLiai v0gjq4ogjLa4VaS1PETu jiTnpQsnAMR2r6ZcUs83 T59fCCbzKZNtZQRpINHj REQcrRdlfy7fiU8b Ii8+BVYyhHS3vVH5cH7p UmTuCsK0RPcqN415ZdQv yTNoEbdbY19nI2AugOP+ YATzZoy8ZIWrpDlu WG2jlDNsXXwmCb3fRYT6 RbCxGsCqCNiuM3McCHNi ufluarwqxBX8RWVfKGFn vU42Sd4mtFepEWJu eSEFcC9izayxf5xzfinq MsWbCQPfYPa5VWs2XURo rXpdHzCrEGS7CaF3WQC6 rQUjoJ0swSxqjiyv yK5uQ9CeYHUlsgvvSc31 rZ6aEnXiRqM4LCmnGrb+ S7LRSaijFZ2NV7rECTpv SzwvdGQ+PHRkIHN0 wIrvIVomJLTqqO4tZHHw C1p8GxYgWnV0ILjuV1Tb LPDxvpdjKv89kG6qAiUh VbS1FLzxT2EmidQ3 MVBozCGcACrmRRP9T25w c9I9JGTbJWAiHWI0zGJ4 gP1haYmxfgdmjIEwxYxa dmVydGljYWwtYWxp M864ZGVwfSjhUiDoWrR1 FfW1BwV3B1RvEcy1UQUv dYrzRY3npFFqHBwzOo3q uNssgMahBC1zULYa xzhfVRWfhZ4oURItmSHh ePgrBA0qDRQxlejep191 FcApTWN6JEDggYVmI7Sc iB8zBrFwGMBrITWx R8ShtYNfVRoeN539IOtr JrS4TFXxbmYbG5HmESVc mPnpWkR6z0M5Bd89DNTE ZWFyczwvdGQ+PHRk KNW7mXjbFPkgMYQilV4x SWAnU1a0TaIvGgZ4COuh B2UgARFqqbelOf37hT2o KhHeHzX9ONlrJ2Uu chD0TISlrXTiXZpeFSC5 K54nd9S8CMBkGAIkFFG4 xAC0cZ3kaPnhepysuKMx dDsgdmVydGljYWwt XVapA465BBFwcSjnHm8W JIN8G2RpNmy0BFSpsGvy MI4mmQHlCLwvXb0cnFjt xMfmQP3aTQYukhin EVZshP9gNTOmvIFjmAwi XR7uRODtzyrak217XwWg NVH0NCWddNZeB2GtuP6o IyMvMSGmJKHnP5Fy cLGxFQimB564YYjhSaS5 SSZrmrRxE5YzXALniQft XvH0d5E7Xj0PQOeqvJW+ ZD58ut85L3WwOimv Csb4PISeTRS1rWH6cX6s YZSsQWctp4C1zTL5Y0Ey buFtef9qr6vvZODbEPwe W77iqXVgx2W1OQBc dMP2YNUshNunNtVhdN12 Oyc+UDDlpKpue9WcTphx l5cbk3igaLf7LxGdJPVa mwWpeUizSGN5e9Ng Nq88W77gTMywDXVcQPIx SPZpCEWdvVspwp9xwD2s Ii8+VHPvtKS8tBE5tB6w ZpQfNwQ3TBgdH216 ZeHrlKCtCkxuy6uqn6os uOr5VyGzOPSsdhFjpXps RHN6k9FaGx66Q7XmsDlb j5WrChg3ws48wUCm k6T6aXK7Y5JcXWWomjcy lAIakEzpSO1tAHRuomuv CLEngG1eEHIrK9r1NkDd TdI9ZOhyN2TdecZ4 HIMbxTMoOZYqpFEInI8m sgegk2bbolxsBuScENCv FLt8EJp2AZQklWydGkSs HWF8WmU4JIU9uINt mM6poGpsmfzwgI5pKjp+ MFe5q1ltiKKkSX8yhXB1 MY63ZY60iZXiw4Z8cDE9 M4UbHHPzucmdujxc vJY8QJTlKQTywS71Zb0q fXmqPb2cHKCkZID0MPHs kQAcM6JhkP9tOpLtPVUl HRVyK0JfbNYrXNhv A885EOjhMtD6NBPfukKj J6VsVHIahVdeTuF9u2Q5 Wo9FSL80PI76SY73nAKi u5C1vAT7W9UtKUUa yyjenkpmwOS4AAIwJXWj nK38Nv6hrNnrYj4mYKPa LVT6IGOmfKCcG7BizQ4s PsBzBLDyQNToG3Vn fRFmDXuxB446NOadGzT5 PSVxedTcR1ZpMQBllXac NbL8s0H8Am8AUc57NM97 WA69vVDlm9M4rCO3 F9VoOZFxkipkytffvDQ3 UBUeBPGrtZ49Pk5cbHip Nk3cIXXtCUG7FXWdcYOe W8UwlJ1wAzPmUUQi RJXhQ3UgvQHyYRewS202 POvvKgY4ZICrfnDhH7Kd YIPixPacRgC2w9U7Ub6N FMhhppk8I9RdTdwx dHI+AB59BLLzTU21iBBz aIVyw2ajxEp3LsPmYRGn ICH6aBtrKSuiz3KqDAKw C08tuVUpd4W6EARs bGx (more content not included)... [facility] Coding Summaryon 12-02-2023 Coding Summary HTMLBase 64 QdjhhpocUBi4dZh+PGhl YWQ+KV8MTJJqY79zaELl eN9yX0UCYWqZSssvXKUV SEqMTgYnxpXaMJ1xhLFs ZXJu IC8+JP2cZWFzEedofXPi t6B6qRR3Q41xiv4fLHkl mOD8JYOsQkMgjdivn1ym tZv5NYxiVvarLhPq JRHbbP16IBS3hW84Kw89 hOJsmXYou6ircKn3UsZx AJMgTEH8hZpzIVkoc9Gz CYLpA89iuVPbz0K6 IGNvbGxhcHNlOyBlbXB0 sZ2mDCclirzvz0otwkdw Yip7zn44bGKen2O7qJH1 L7IywcG6PKLhtSMh EgcdjGVDrN4kjouzn9re usakIoGaGVYuOMh5RJo6 SITxlCiaFgZiVY44JJQ6 PIMfyqTqZ0MhAXEv kHscZcT9q4I4Aq5SU2BF CqguF2XUFXWBLTjccKF+ YK98mr89Z3HmLppqFbb6 LCLpOXI5iBY5yW3l BSBcDIvzk6M2qJI2V1Gi vqVmjv6bz4pqIEYeLQsx D46rqBZgt4Y0FXVayYE2 GOSqvGisXqBmkP13 Oyc+DKBlxPsjq7HaWjak l9vwp8rzaTp7XuvjBLTn bjKtfMyeCEK0y2KoGi8q ZEZseJC5kJV1qW7x SaBgAdW7TLlgT421AxHg lYTrHaweJ04dG6YgrWO+ WHMhVyj2HATgrJokLF4w E6MyQSEcatftzYEo oRejQX3bIFNuvkbfRZYp tY4rORRaU6j9XcAuRqA4 BLedT8FfIALapmtdOb55 rH9pOlXxFvD9KZqi H1SrioS8NFRnvKQuPLhu CST2Y67dd0Z9QZQhPCLx KTF2lSD9pQ5roVfbgmej bGVmdDsgdmVydGlj GXhyIMuwE789SAKnhOxm PkNvZGluZyBEYXRlOiAg MDcvMjkvMjAyNDwvdGQ+ TYQyJMT0dDcrUIRt rJLqYTqkZi2ycQufaCyu CN1vUYYziqxwTUSpzQ2q UZZdzAXuyWyfSE6qJQOg cgnne452TaPiXMM1 DDAcpIYmR3YdwB4sYcPb QSXpRVOvA0TytLHiSPkl Q548CIoyEoL8FQKuigPj F5NvUHPjoRqdKzY9 a7L7Fi3He9CkabjbQ7Fg gFWhCwFaFgnfYPy4J0Hw PjwvdHI+NN42IBWoIH48 SZd7LUT5jIyxMUuz VQUrB1HvjV8oLfJjBRWu ZGRkOyc+PHRhYmxlIHdp ZHRoPScxMDAlJyBzdHls HG9oXx8yRHOeKJMc vOtycUOiGdGfg1fmDSCi UUlxCQ1osCtgQ0BsyBF2 EKKzq4u9Hd13B45mC9Rt dXA+IFZeyFZ5tKZ0 jD9pOrPdYuR3ENuvK133 LbBvhEAmRdehm0aec0rt aKu9OxR0AMBthvCaaQoc HSM0k2QwGl39Q28k IHdpZHRoPSIxNSUiIHZh nByyhh6deO2hGa9+PGNv nDB3uOL1cR7tSkCeHjJ4 PSenD709VrNqlVLx Nqsgx1bbs9djkQx5YjDl YCSkzcEdhBeeGPL4r6Om Ii25G9TqbFome4MaVec6 dq29oCSey6F8rIX9 H3HlGAAvbvwzzCWlxTbz GZ3yTZEnyoufBYVthN4j AQJwD7q6MfHeCsI3AOks P1JzmlF4QCUzsKZk FEKrdIHYfU5ulqyux1ge ycbfSsVqJOXoOFe6HGz3 OKDdaAosKiTaLRD4BqT3 KKT5gYCalM0auXmo ohtoxK5yJst+RNS3mUJi mYYZWA4fUcklzXB+PHRk GPY6iDmaUVlqBMNuyU7n SBXqY6o4MdItAkI1 RYgcJ6RctaF9YBCxeYEr UETygWQTgX2tenesm6iu nlkuXrFuMQDjHYi1BGr7 LWFsaWduOiBsZWZ0 MnV5SII0cAQmzU9esTxq uchfvD7bPek+QmlydGgg VUL1TTs1Y3UqFqf5GPDn cXrqUT3gxLXyKOee Xj7wnRceuJljDR8gMSCg wbscc397NbCcq6nyPVMi cRYrQJjuEPM3X36qs3U9 XBFzBZKrRIR8aHL9 cW2sbZkbpnhrsUGlmHiz vtBkwHomSAsuRNooN675 SSIpfNmgMrKuPYw5A8Pt Ydb3DAIunMplIM7j uOTyVRbxTy4ekCanbYxo WM7qAPMcejwrs890SeCy j7uwZLKsvYStIThmXQJ8 B73ju4J2JGDtGBOu VEU6dTH8tB5ohYtozsyv bGVmdDsgdmVydGljYWwt KMyvC950ZKUnhZhgUzEn hVw8T6QrLmd7GWYh yAtvOU6kpGQoUNpwYi3m jHnihZeqRP6iVJNzzgks w830GwPvf8hyYPYjeGRe FTgwCIT7Z85ue4H6 IPEuTSJfCNA0eQB4cI5b bGlnbjogbGVmdDsgdmVy zLobMIyzYUzrV666ZMDe cDsnPlBhdGllbnQg PXeuMVn5Q2LlNpjtnJQ+ CJ31ZTNjQZ60pLFgoWMd h2bhfOu6JtLfUERpPXS0 cLteSFqkr4VlWCPw N33jdEZoc5H1TDJzyGhj iELqWjOgbNN3tY6dIDms fzcak0kcprpcZcfcu9dl ah63dN49S25ySPgw ZHRoPSIzMCUiIHZhbGln sq9wdT0hSc7+PGNvbCB3 jGK8xE7tZLSoNdL3WQwk U569EtRgaUUhMixo i1yjs9fhoGj2OeH0PALx nkSfeTtaHCG7y6IdBd53 U30oXXnsGCZlALWqSBYv LJQppZbuoq0maY1o Ii8+JKQhlXW7vKT9yE9u TiLgFdQ5OKrjB706SyTb bKAbPdojQ81lE5WamEO+ CNZhTdo1FPQwvRdh QE7ycGIlCRbkNh0cHIN8 ZbTsTyFjIHcdZ1OvFQAg mpebfgtetPN7VPQbAQKh fR60Gt1tkLsqHLKi lPANdF8ufsnxg9folgpo FvDqUUHaAFm3DIs6CWFk kMakQbHyFXL5BuN3SMR4 zYLsxE2bqWenxlda eD6xS6BvWEAovsopMe51 rK8tWgInTyL0FSbgOmt+ I2EBOmunAV4WV8yUSGmp SzwvdGQ+PHRkIHN0 hLbnRAvcONWaiF0gVTWc R3n6NxWpOmS8TIivT4Br IWJlmusnSj40wR5bCuZu EfA2XGzkC3KrqaC1 RKAmiJHaFIblOIT7I74s n2Z8YBEtDUSlBIQ4iAX9 mJ3tePegbrspgWGowMod dmVydGljYWwtYWxp S442HMUxxEkfHiUnEyD9 MlN9DdR2I8JpQxm9SYVv kRzkLA3exDGpUKysSv9x zIohvNulRI9eUIAa uzvhMXGwhR7uLJHpfYSd sJmjOR3cEKVhmibnp822 OoCfKRD0UNLonSSpT6Vi iW3rEeViCBHyKFGj L6OxiKUcSFetM769SKwt SmP2OHIylqYfD3QcLKPu fGqmWvW6q5D8Zq00CSAL ZWFyczwvdGQ+PHRk NOS3dMufDCwlRDQzsD7s BHSxB3v6SmMxErQ0RTyy W4TiEBBjbxsjPr10xW1m JoVjKoE3RCckX2Or lbW9QFGubODzBHlzQSE8 Q96ag5R9MJWaRSIqPFS2 wUX9lY1amHpqdfqxmNYp dDsgdmVydGljYWwt IRzgK150AIGoaXzmXs9Q YUJ2U0TpDxf2JGCnpNzv CK7yzYShKJquOg0twBwu wRpgHM0tCKTtxvma ORWflE6bTDQbhLUprPrs UD0gNPHqqchpv648PmVy ZFJ9UYLyyJFsN2UbpF7a VvDfENLxUVUjM3Wx lHUfXQxdI613LJuzMnY1 VYRrojHgC1DkBDVusXlr KuR9e8C5Iw0MCWazyPS+ MC82vb64F0PwAidh Def6ECEqTAQ0mIG2dK2d EONxRZldg8C9tFY4I3Hs xsMlnr4jr0fpWWFhJCzz Z62udQMfe1S1IWIo sMZ8JVXycCasCfKcuY94 Oyc+ITPqyYaht0LdWimz u4pvy3osrXk6GsFuRTYl osZffNorTJR3p1Oq Uy35D74jTVgaMXCyTYOy JZGaQKUoiVriyz1udV0i Ii8+MEVinNA5zIN1dF1m QqBjFpJ8WTyoL902 QqWfqXXfMmiwo6ufw8uc xQg7TvFdMGHbkgCxdGhx BAB7h5IlYt92Y4QvkBji x4RjQmp9iw32tLNf c3J3tRK6E5JlPDUausgt rNJifPmdRQ0wQKJwsgaq JGBsvY3mWOSlJ3b9VrUt YnZ8EFugY9EgxiI1 VGIrtCTaHHSkqTDWkA2s qwnsu2owxvtfKsJuXGGn NPd4LKr5IPJbfSfqQfKj AUN4CkF6MET6oOZn vM4asPrfulrgpZ4aAxk+ ICi0a2dizXXjDV1jkRN5 GI40MP95sYRjl7G0eQB2 M7AlXYKpywabfrnp mZU3XMWmBYQoqA11Ko4t fIhbQy1nTSMcTLY2DGUr eBTwX5PpfW4cSuDsENDj CGRbP4FmsYPuLSod U822JFvfUlT4JOQhqnSz R8BvLRKclDzgWpX5l7A0 Dn4CEZ18VS34AE26yHWy r8L4nUR2H3BnLABx vlnvqeriaMP9SIUeCJQp rE62Kk5tjIwnRn4pIOLx WUA8COPcaKXqL1UvjG2z ZzHfXTMbQKWpK8Fj lXYtFDviP538VMppKqQ5 RDJgvwKyV0TcQAFgjPed VmR1f9P9Wx8YYh87FI37 RF08wKZpm8S7pWN5 C8MpGLMzmmmbiylvkDR9 QUPnXIYfnA03Rp9hiVqq Ky9aJSCsTVH4RHVjtPHg I6TrxO7gGaGzTRQh RFQnL6CpyCWwOTmzE351 APxeYdS0REHhjlXqA9Gv XANgvAvaSvC1q1W5Ek7W ONprnbw3V7UzDhqe dHI+NS44CVYxRC74fTUj vJQok6rlfQc0UrQgSWWt DVP9eQejLNoyb2YmJMDn N52cmVRkf2Z9WBBi bGx (more content not included)... [facility] Wound Care Noteon 11-25-2023 Wound Care Note [id number] [id number] [facility] 11-13-2023 [facility] TfpeiwvcJGg7qDj+PGhl YWQ+MI6ZLIFaY16zjTTa bZ9nH2FIRSsNFtybDZKJ UBfJPuKqflDgUG6gpZNw ZXJu IC8+NB7wGLQoKoyeoAKg q0E9fFF4X78llc4sPEcy kKZ3HCUfHnOlvowtu5eu oVd2JKmlHwofEkXm ADAblR27ODV4sQ82Ih42 rBXgrKEbg6pkvUp5MuGy DCDuNIL3lPmmBOksv4Mj NVYlP14epHCsf2X5 IGNvbGxhcHNlOyBlbXB0 kC1kXMkzumoll4kotxjb Jmj5ds33gVHqc0T3sOW8 C2YvoaW3ZNKozDOg UkdaaZRSlO9ebafrj9sm jreeNjOzTGIhPHk3IOo6 PXYuqUlxWfDpTM22FXE6 RVMgviNoA2NeWQLs hTmiAaF7g6U4Vh3PW1DY ErfoM0BGVZOPFGqeqUS+ FA54xj63U8MsBjutXgn2 DJVmUMX6bPU6dI1u MJOuMZhut9D1aPW6N7Zu xaAtkh8fn5ikCFEcQUhx A18gsDHbk9Z6XFDisBX7 HCHiiTywZeCzkV52 Oyc+HLTwtQgmf0WjTzfm u5yng0iewVm6WkmwJVHy pjUboZtpKOV6j7SgUx6h HBFmfCC3xNG8jM6z JuVuLaT9QPaeV763MeAr uKYiRcnwY13uF4OkcFQ+ MIPrPhn2KFOiySvySN1r I4KsDUBjdostaYYv dEfeKC4vFUXucqeoGSEn qA0eNKJxN3p0CvMnCdY6 IWosN9GeCTHjhxvePi35 tI2sPzBmVbV4JXcs A7NbdpZ5ABYvwCDkEZzg ICM2Z38hz1U1KXYvTTYz GTM5lZD2sX3lxMgiunse bGVmdDsgdmVydGlj RJomEBuiY036TJMhrCds PkNvZGluZyBEYXRlOiAg MDcvMTAvMjAyNDwvdGQ+ SMZnVRB9aWfiWOGu gSInRIscWp6oxSuqqCxc DE0wLUWbrgeaQKPrzM1w HWXgcDIotUlmFO5uXEVh krzvx283EeLoPXP8 BQIkvGUkF6HozD6wErVb FUWiWMOtJ2KibRQhPWrc D475ITkeZwM1WEQxecDo O7OdSFCplIicJmR9 i9E6My4Te4KefzpqU1Un bFMvEvUkCemgEOz2O6Cp PjwvdHI+KB00RJZrQT60 TYz8VRQ8nKpvTGmw LEMpS0IcrN5vOjQpXOFr ZGRkOyc+PHRhYmxlIHdp ZHRoPScxMDAlJyBzdHls IT7qDl0aISPwVERi mUdhpAOaFbXxk9kvJETr BWaeOD6trGntX1KntKE3 GYBrk8y3Qw95L30kF3Cq dXA+MTEvqET3uYI1 nI6aIaFvZkT4MIufS756 PnWclAZcCdgta5tpb8yc jMi8WmB4RJTuzqLaeHto PZY2q8PfJx61G95v IHdpZHRoPSIxNSUiIHZh aMalyu9zaD4eWy4+PGNv sRV8yPQ2yF6dYuJsDjJ1 GSaqM160ZnStzSBm Fcmlb0nqy4vbeQo8JrMa CGSedbRbsPjhZKU7h7Jr Ga83L7TriGena7KjVgf6 vm35tJXub0S7aHY0 W9JtSRPmzizgaBJczCpc DP1uOIKaakleLDHtuX8e LPUfG2l6QdIoTeL4FNxe F1TxmdD1THZjuIBf URAuwXQCqN5hhijpt3nc cwrrZdCzJGRoDLk5CZi6 ZFKrxDuqMbFuWKS0RzQ0 EPC1yXGzcM2eaNrj zbhbjG6cBvw+ZBW0tBEg zZZLVP0aXixtfQE+PHRk PGY5xRwrVFhnVFNduV0u JVFjY1y4RxYyThZ7 IUuvY5RfjuY2CBYnoBNo NWXngVOTiF9lakavo1nz mnlpRwKoZFSsUJd3YTq4 LWFsaWduOiBsZWZ0 VkN6EKR2sOHgeR3pgIdf thwhiM0oLnb+QmlydGgg CGM6ZTc0R8UwJda7NMAx yNmxHX3ocDCeJPes Pw2mjByhjKbwJV6eOVIn isyej631ApFxv4gbISId cXNtCZqxFFJ6F37md0H5 XZIvQXIvHNX7cIG1 sV0xfPhxglnlqCMmmCcd uiGxmEetUFsuTDtlV065 BHHfmGwvSuYlVPr3L6Lz Bsc6CQAvcSwdFH8z wSKsZRrmBu0iiShxoBff LN3qILTabjfjr446AyFc j0ghJHIufSMgTFxiAZU2 S05vl7V7HXEqBQSc EGL0eEU0oH4wbVlenxsh bGVmdDsgdmVydGljYWwt YZuqY128FRRytFeqZiSr jHt5S1ScSje1EICt kZzvRJ9crPWfYZwxZu8i fTbcqKifKJ7sINAqyrvp b301NhRon2hxZRNnpZBq WCynBDM8R64ns1J7 WDCpVMEqMPS9tFR5zQ0k bGlnbjogbGVmdDsgdmVy sYfjZHgeGCzmF509KTCw cDsnPlBhdGllbnQg OAplSLf6F5CbRscgmEL+ JZ22AGIjVP72yCFkgFHv r0cvpUv6VaJiRCJvNMJ5 kKkbRQgoz6RgYKWk G87yoXFrp4U7FPDwmWep hDWiRpVpyJI7oX7xXPqb iwiur3vankspDezzm6ag ad52sR11A41hQBvl ZHRoPSIzMCUiIHZhbGln ws1ocB0cQz4+PGNvbCB3 aLU7mB7eEVAbFlJ0SRss Z084QbEqdCJcBwdp n0ftl7bamAf7ZrB0APMb vbLyzZplJFY1g7IpYx39 Z72oFIunNMUmSLNeUZNg DYTgxRruvs5gfH7l Ii8+MDRwaAG2tOP9pI1v NuTqMwU8JVnaC433YfQi jIGdJfgvM35lB1AmmNN+ HPMmOgf9WNCowQes HI7crCYeDZqpNs4hCPA3 NuHhOkFrUPzpC6SlXRTb wcpdxwjbsVT1GEPdZRHl mW28Tf0xtPpnTDEq bKRCwL4csmkzi4cdiixl ZtJcYTAlTDg7UBd5NURb mNurKxPoHTC0SqP6ZAW9 nHAuyB4hvLvmpumo oA5nR0EjACTpbmqnEp69 uE3wWpXnUkU4LNcnJvd+ Q1UVNtawIS6DU0iVGKng SzwvdGQ+PHRkIHN0 yJtzLJoqBWUyoC8eFRAb Q5s4ChSjIzG7BFnyC9Cn MXLuxqfeRg19sX1iIhNu ZfH9YLcaW0BhrkV2 LPPmyOAkOBnoLEH4V28e e7M5JYRvZOKwDWM0jXL2 rC2bjIzmtlqcoLDrbEcv dmVydGljYWwtYWxp R815ZUPixUdnJwSiKxT3 MsG9ZfX7C8UbMxs9OCAg wOyyPH4qpVNkWZddTc1f qOpkzUndKI5fPCWr snvhCKEzrK4bSQDkyWBr kPahOX7yATEmkmggp059 IoWhNYO3LWLmdSWaN3Zf oE3aNhIrPFZaIEPt J1QaeXZaSRawI789HZpa KsN6YSSkyvZaR1TvPGPe dRxfNiP1w0P1Xq11EAPP ZWFyczwvdGQ+PHRk HRG5pNvvLQeyLFGttT7s ISBlY4m6McZfOcP3JGre O1QiNTXzyothBl38aE9u KcFkKxG3FGokG0Oa myV8FJDjwFLyYOfvKAQ1 O85mg4C3DKNbZHUdKAZ0 zSM9tG2rvXlpqaxalUZh dDsgdmVydGljYWwt MQkzB426IFBwsLclSo7P VUW3A2IxLhz9RNYeeYrx ZU5ozEWuCJosNc8ddHue eGygRD3uCOBecwyk LPNggE4rXZNwrJCahGga MU3oSKLfjagkd343UoEi CJX1HKJaxDSsL0ZurF4p StHcWEFfHYOdU8Zy oATaGSjfO352VXwjPhO9 LOKzbnBrX4YzABXvwYlt FlD7p9D2Dh0AOPcxnXO+ EP22dg90Q4DqIgxi Apv4FFYrNVH9gNO2kI9k HIAaQDxhu9J2bGU9P4Hv ftKleh4sk2cwQNYiMEcs W64lzAPsj5O7ZAHr uDT5THVwgSunYiAbhF81 Oyc+JIMhoEuua8GpUjeq p7wwm0rzsCf5WhDjCASg wjLszUcgZDL9v3Nz Ru55O51pCVobAFBcMOMu YTOdQUDvmMofjz0juV9y Ii8+TTXzkRM6fXS7bL6s VtTsNzL8UHguU972 AyEaxQGgQgdoi2lck8wa rOd4UdWyRKGxtwVigIpi LTV1k4QcDy52I8HceCmr n4FcAvh8ha82rYLi r3F9vWP6I8GaDCQvndct tBXauTnrBF3mJVYzkmim CLGszT6dQJRgT0d4EpDb CcH8VNuvG5OuavG1 COVdtMCgUDMpnWEHmF5f kqbvw7tqitijHgUmXUKn ALu8NBy0BZCblHtrPtAv CEH4VbV8ZJA1uMGg uW1ziOwblzvynE8vRaa+ SXs3m2sujORbWX6geOC1 US15GM99jAUcq8Q0uQU1 M8CpPAFzmoeiznks oJS1THJbEQIqrZ21Hj8v sLlbAp5qIPStBLQ2GBBc dWPlZ5GwhX1xVbGcFMGx WVLnK4RmfJDyVLgb N329XKbcHqT0RGFavoMw W1CzJKVmbBbcQjC2o2Y2 Km2VJS00VG48UE03xGBv z9K8fKL4R2WxVPUd ohjdkkkuzCS8IJUjOUWd gU98Hi6gwQnwXn5rZNVr HQH5YCEsgZPaY3BydR0h UtWdDOVxDEUdG7Uy lVFrQIraQ392TZhlCqH5 PYYjmvDoT6RvBMTsxYeo QnH8q2F4Tj6GGv75PW70 BO46gYVbh6W8lFS1 Q4VhBOXoxmlfdbljpGJ3 BKLiXZRijY88Fc3zlCkm Xe0qNWFtJZM4LPUbyJVw P8NgcS6qTiYpVUSh HYTsF3GcwKVpSBncD996 CAflUyW9IGVcuaJfR6Su MOAzaTqwSnG2b4I2Rl5X ECuhodw6B2YeUqnc dHI+ZC71UUWsKH48hZDg jZEhy9bpcWd2HqMjFYBx DQH4yOhuUHwre3AjGFRy M53rqGPeo5D8SEAy bGx (more content not included)... [facility] Coding Summaryon 10-30-2023 Coding Summary HTMLBase 64 SgiweuayDVg2iMz+PGhl YWQ+ZC0AKTUkF16zdSIz hR0tT3POZOmYRmemOYDB FOhVLqNxdfUsJB0jdSAg ZXJu IC8+ND0sAAKzEvevbYSe q1R4hNX2C59ysz9dXXmm uZD7TNFwNbBqmazpb7sh fJl0PHcoOjhrSdRp LIBwvY44OOF2zR31Ah41 yDKveDJng9gacOj2GhIo NFBwWKJ4kBmbREvgq0Wv VHUhB03fiIZms1M9 IGNvbGxhcHNlOyBlbXB0 qC1cDBaxtndtb8ahdrnk Tla4du64zTQvy7W5mQG7 D6DxyeE6NGFteVUo RzrumEXDyH3lwwhsm6jq fqpgOdStDUYkJWr3NQt1 UCEexAqzWkWeNY07KEM6 IDRmaaQvC2JxWRYn rHweRfY4h5I2Gn3ZP6HG WsivS3INXIIGIVzcpLS+ LG15py41R2WuWkqlZac9 IYSfPCN1bRJ6oX3c GEFoVEide6O4nIR8O2Sr ziMpwv8bs7ibHREbSEia U07mgSYcp7I9ILYtgRL9 TUSdfWovMvEixN18 Oyc+PIZhzFnnl6OhSxqo x4uzq6xoxNh6GimmNMEo dmBcrTksEFB8p1WsTa8m GBBbjUI6nUQ5qH7f UsTzQbQ8JMrpA778KzMs xCKmHuinY90xV9DhmMY+ MOEcNrt0ZROlnDjcOB8u C1HmRMPsxnxjlPGf nWpdOD1xMLHoestnQFRx rI3yVXUcM7c7GpIiPkX2 DOwwC4ArCQJwrnzvEx03 sG2kEkPvVmN8VNcg R0EgwcQ0DFPsmRHbAHfk VZD3W69jp2H5QARqSHAp ENU1hWI7tS9unXkogjjz bGVmdDsgdmVydGlj BZhpRMslD372YPJcnUhb PkNvZGluZyBEYXRlOiAg MDYvMjYvMjAyNDwvdGQ+ MWGiAYL7cMpjNSSf sYKgFDtsEd8ihVlqxTao CD8kCJMufrhvSSMupP6d JDNrqHKwhYziPM1zBZTs oxhii961SkGxYGG3 RMCtvOVxJ7TnjG8iNmWs RGNoGHMgL6XefNSfIGjg Q187FWsdBvI4BOTlalDh R5ExLNZpxXasEaL2 w8C3As3Dr2VwcmuiE4Ab aGAnNjKwZeuyXNg9D9Gd PjwvdHI+CB08YVQgHV44 LGq1UBA5qJyyVEha BAQiY4CyjW0dUhRsBPDr ZGRkOyc+PHRhYmxlIHdp ZHRoPScxMDAlJyBzdHls LY7aAr8cBPTjMICu pTwchDIxHlDzo2zhXHEs DKlnEZ1rhPvzP3LsxXJ5 ACWjb8v9Ob41U74iT1Vp dXA+CDQrpLX8eSV9 kT0hFkXqBoU3QXzfQ053 UuPbxSBiYnath0vfy4qt dMg1DkH0QRNfyzQyyHkn PVD2t9OwPp40P15r IHdpZHRoPSIxNSUiIHZh gFvhvm0nsA9kVl5+PGNv iLR4nQB0sA8gHzUwMvH9 KYygX741NyXvqBSw Rerth3dtj8dhpQl0HuWl ZWRupnOwtGolXFX2t0Va Rw91B5ZomDwtl6JpIho5 nq59iNBqn4L0sQB1 Z8NgOQLtaiumvGNphTav DZ1jQZOrgsseWBNecP3n GIQtR1y0NgKbFlF7TUdc G8NrphQ0RRYacYIq FSPitWLPoI5ryvzsm1ex lqqdUeLmQYQvVMu3OAw7 CHHhfZwiAhCaVWB0DpA6 XRT8wILsdY2hyYfh hlaanA4wNaj+TOT3hQPg aAMYMF2yApvvvGK+PHRk SRC9hUiuCWejURNohC5r HASkW9q8WaFrFfP9 EMbrN4XbpxJ8DTBwzQTf VGPtfYBQkY2mrkgus7qn fgcqSjReFIAsYYe6EKp0 LWFsaWduOiBsZWZ0 CvM3FGZ6hPNpwO7pkBkf buwzsT3hTev+QmlydGgg URP1BAu5S5PfJve4KQMz eFhrBZ9hjTFrCKga Go0dtIcqtKwfCN3tOBMk nwine377OqJjy1hwZOVa uXJuWBhrNLT6S11dy3P1 FAYfWHSfZAW0nVU9 aQ5vvCicuqeerDTpjOyq xiNakYfuRUfmZKghH683 BCNdxAclIqHhMDl2Y8Hr Emy1DMLrxYugEC8x kARhLWsdSn5rpLignNck PM3sBYOqynkum108WqGa p7xkACZwrRTdGDwoGDP1 M37fx4T7NBKuDRYa BDU1cDS8yK9dlJlyvken bGVmdDsgdmVydGljYWwt VTojI406MELhaYbtBmKu uVx2Y6ZkOwq6WOOo pDruVE9faQUpMMduKk8w pZkkuLajCC4tYZTqrywh r457WzJoi4qsHYTszAOe UWjpNER2Z10fv5A0 FSSrACJfIPD1oEN0kV8n bGlnbjogbGVmdDsgdmVy lXugIWdzXEehW541NIRp cDsnPlBhdGllbnQg QCddWZp1P3MiIqwknLQ+ SS80ODHwMH75mGKubKQk t9axkIz0JxOwVTRzDCO9 vQypERyru4RhLDMj D60szAWtu0M5HOEpxBwz oOYnNqCxxMV3sO4fYOyb wilzi2yivnjcQhgvv1jk fb91xB05L14iVTzk ZHRoPSIzMCUiIHZhbGln xc7nfE8vGx4+PGNvbCB3 qKW1oW6vJVTwSlO4DPyp N989WgUlbCQmWjca t6ncp9yhlXs0XgW6INLp njJdyXyaRFW5t7PhRe33 J53hKWsiKBQpHHXdCZCh DJBuvOmyae9iqA5u Ii8+GMNsjAN7jKM7gJ5r VfExOnP8FUclS816OdOo dIBxSfbxH06uC6FvuCL+ DBXbRjp7UUPnpCfh XB7cjPEbLVwsMn8tLCN6 BtQxJwYvDAltU7JrOSQy gzuiwsamuTA4TKNaHYHp xJ26Yj1xiDrtJMAl eNOSeC1ebaolw1daogpz XsVyCCGvWYq0FMk7CTHx fYlnZeWlHVK9GbS4YFJ3 rADwrQ9ykRfzycgj aR4lP1FuHQHadyxeYc76 xG5uDpYfIwR1QAswPhu+ B7AKQziaVJ1TX7lYZNoa SzwvdGQ+PHRkIHN0 lJvdEZerUNPzhE9xLHWp O6i1VzUxYuW8BPeiD9Wv NFGvmonzPd94aM1gAiOe TaS9NTdjS3DinhB5 MBPpuOZqLQyuZCS0C79z m8R0TAOjLJIcUGP9nJV8 xO5dhJjxbveofQFbdEoz dmVydGljYWwtYWxp R737MWNkfXmiJaHvMaU5 JvI8GoI3R7OyJbq0LMPg tBzsBH2prOKjVLvcQn2o gQmalGdhHV9cMMVx pbacXXVolO9eOOCtiRFx gFfhEG0bFVOgrqsrf885 VcQqAFC7QPZnlMDiZ9Ev gV3mKsAePSIbRBAh Y9YwwDWhALkkB752PPsy KhB3FMZhtgNqA6WmVNNj bNktNxV3n5W0Cz92NTAU ZWFyczwvdGQ+PHRk UFV3xYshZJvyLDUxgV6m TLKzL5o6NxOpJeM0AXda N1CjTTKhluylBw66dO3i EzBsLqJ4XMpyM7It rzQ3ERDlmPThFJanWVC0 I43vi0U0JUJsWBUvEKP7 wOB7oK6ujVxtwuubuWDh dDsgdmVydGljYWwt BAphY217RAPcsVuaYl1O DCE5O5KnVgq5OOKlgYhv QU0ecORpKQcgIy4snSoi vRtbBV3iYTWukwqz TLDazI3fTOMjsKYmfBaf ZG7jTJJvisbjf089KtOy KBW0YXYqrIShL2FvkQ8u BnMxPYMiEZShL7Lg iYIyYTmdC464XZkyEcK0 KGZkoxBgG4NcPOKyvFmx XnG4z8I5Tt2LPHiptTO+ HF94aa09H7ZcNvdl Brl4QRZrWHA7yWY2qO7k RBXfXVjgv3A0jET8D0Va ovIsyb6xz7cnDADtMGlo E02ynKSpu2O3IMDh hNE1TEKwyZglTzYraL68 Oyc+OCGflJhzq2PvJzsv e8lhx3ykrGk7HzSgWUKc udRxaKwpQAY5y8Xv Ft58W95lCYldDUEmLQCq SAEbSNTqkNkyhg1dpF5p Ii8+KMItqZV3hUC4vA5j LsKcJdR5BVqbU130 AhZkzXOdVfadh9wtv9ow gSa0JoFgPHLxqgOjnXtj MKW0y5TkWg82Z9StpPci a1GcNbr5mz51sZIt k6E5bYO5K0XrVHYxaljr aHAhoJmnSZ5cVZGbbzim YUCtpC2lHJNiJ9d3GdGc SrC3FZsvX4SjqaT3 XLJqiXDcDXDpgYUUmP7y axugj2wexazcRxKcWEBk ZSo3GMa5RQWeiAfpLvUi EZS6ApX0YCS3uQFx xY9stTdulsnnrW9fScg+ WDm0w3hzrWXiUY4osGT3 QW32ON95eHVjq9V8rED7 T8BlBQRabdxsggjm xTP9WNVmBZIvkT81Zd9p sMukCo4hALPgKLX5RZOo bXBfJ8MrsV1vEyXyPAGy BIFzT7RtnOKaDPny E495IBgzJoM2YJMthxHw W8HxDEKtvOmnWzB4b4J0 Zu9ERN68WS38FN69xAGg k9C2dVZ3J5SrSZIi rjjrpjpdwJB0JSVcXCXi jU63Ga3rnVmjFd7cLOJd WJU0DIIrgWExM2DnrE0y PvDpRWBxSKIlX5Iw dHFiGUhsZ773UHohDeE9 BYGjxlCzS2IbOEQoxBwg IdP9n5Q6Cm7VYv47ZG94 UL49bGNys6K6jWU2 M9YuEBWgtbafldwqgNK4 VGJmNJIheY19Bw7wjAoi Cs4eAWNrEWP7CHCubXCj N0IotQ8yFeReDJOm OUTtK3BnrAQxEEynD154 IBuiRuY3ZYPzaaHeI4Si JLVkuWzqRaQ9i7W6Cv8F MAvsqeq4K6RqUnmw dHI+RR41EVLoKJ61dPNo jMFta8xgjJc6YpAfSDLt GIX0xPknVSvnn1BeAJLv W36waIMjr2A1VDJb bGx (more content not included)... [facility] Coding Summary HTMLBase 64 MukgcssaVAl5kUx+PGhl YWQ+EB1VOSQuP21nrARh wP5fX6EPYLdOVrlmONDY VKrYZlArttOdEO6npQYv ZXJu IC8+BL7dIWDeInockGYh l7A4wQW8F14zcg2nVIln sJZ8HSNiOtKpgpxof5ak iNz8MHyfDisjPnPe DKIjoU89WAW6dC79Gp61 eAXcwCYcw6gykUg5SxCb ALQqFHZ7cZwzKZbek1Wp ORNtQ52usBXfn9H2 IGNvbGxhcHNlOyBlbXB0 xY6zIUbkdkxou3xtlwjc Uim3co54uSTrq9E7kZM5 H9NbejC3INAdfPKt IfqzzVTHhF0onxbmr6ts ptyfIyOaRKSkUCy4THe4 HRCetYmeJuYoIE54CWH8 CYVryxGxJ9UrVSHh nXfqYjY6b7V6Vh5YP5QF RrhbB6MULTKDCNipgBB+ EP62wg82K4IoJqobIrh3 FJAuVBR0oYZ7qM4s AAVoQQbrk0R3pAO0Y6Ep hnBklw0bf4xgYIVhSKai T08fqYAxo4C0YIFfrEE6 CCYctEumNiCxyE31 Oyc+IKDbmUxny8ZsVzyg g8opl2xzoJf4OazeDXBy oqZtxKrzHUV3c6HoOu3f SXEuaUW9aSV1oN0e NaVxGcY7CNtxK372TbNt tWRkIsrsT90aZ3NgbZJ+ QBPpWbg3KUCshVnyAN9u B7DzGSYsjhhuqDPa mLhlLR2eGKSzhbzgSYSy uY1eFABgM7v9KmIxKtA4 MYpbG6SlIUSdydelHs56 cV7nLnQwCzL6JNrl W8QicdZ3GFKpwSApDGee TYL5T87as5D8JBYpCNZw AQN0xUT2cY0fqAbgnzdp bGVmdDsgdmVydGlj DNsaGQqsD701OLPbbAiw PkNvZGluZyBEYXRlOiAg MDYvMjYvMjAyNDwvdGQ+ KIOoFKX4rAovASJx jQWwYSjqXm8hbHvfwLud SV5cPZAtwxxoACDhuY2g ICPqoGDonQwrIR8cQNGc mrdfc627BbHjXRC1 IBLetTIqN4YdcH2mJrNd FOQaUTWzZ9XfdPOgVRhn S330EAahJlK5YYAeyjYb F8OhSAWhgBuyGuW3 o1M8Rb6Wg1RoswfaA9Ev tENkOwUnHwdqIDb7X0Gt PjwvdHI+KE12TDEsZI35 ADt3NIU8kMdmVTst PUAeK5TycO8qIbJfKQJm ZGRkOyc+PHRhYmxlIHdp ZHRoPScxMDAlJyBzdHls CF2vAs4uTTZiDCVv jSsryUAtMfQgp2edQQPo LImzZB2uiJcqH5XpvQY7 DGWsl8k4Cc06B06mM9Yz dXA+KUZwvGV5lLN1 zZ0jEnVwEbX9GOusM090 UeNwlIFmYpbia3dbk5un tWl0ZyR9MIOqrrDxrVjf ICD7x6EuTw05A68p IHdpZHRoPSIxNSUiIHZh tAbzaa3naP3lYj0+PGNv pBN9aCF2hZ8hAyAiFhU4 VTqoM876MrCmrGBx Uypwi2rea1uwyPp5ImZr TXKyzmVbkBrcPLP5k5In Ag79X9HvwRmnf7NdCbe6 jf04gSVex1B9dBU2 F3EbRIIlulrapVGtqPjt KL9aZRAwnlcfBJJggW2t QQChT0g5KfWhNmL2GHle R1SnddN6ENZuzPSi GSGoqSEUtL0cflmjf5da tyluNpOqLWFqBIs9RWl6 WNBhxXdmGrElYNW5ViN7 KQQ1zYDeaG6ypYjh dqzbkP2bAeq+HKY4bYFm yROGFC1aLtwjcRE+PHRk TIT9wUxpTYvdOEAqwV7j AGBxK6v8IeBnTgC0 AMzqV6KvbzD3SVZdfXGc SFLqzVOQeF0pinsmn3zg pubzKrSzWFYfSFj4BNf1 LWFsaWduOiBsZWZ0 MgN8DCD3wLHomM9kkGac ixbwyO6aSwt+QmlydGgg ZBR2XUy0J5LmUzu0NVWu gXnuQA8vsLYxCKgr Vx8lmSlliIodTA1hKAOv cdjyw675CqVdf5sdYFAo uSMxLBsiHAT7W89ql4A8 EFOqUTMlBPC0mLV6 uP6tgTnavqnfgEJnpJre leBopXpoTHyaSGmjE041 ARPwxOffVsDoLSz2T3Lj Jjt3KHFvmRlbWY6m bFYjERvjPj9wkQginXbs UA3aAZTnwepuw815YoGh g9nqZVBkfZIwYBlmMFJ8 N27rz2E5QGDuUWYq TXZ8mCN5gY8bsZkivthv bGVmdDsgdmVydGljYWwt GGabF039SMAnmWegDxEv xYx4V6DdAvk9WCRe bNxvQU7caRAfGUdiRd8x pVbajKjiGL8bOSPvodbq z867DbOsh4ieALSexMJt GNfgLTR3H65gm2Z0 ANZkNVYvJKE5yMU5mE1g bGlnbjogbGVmdDsgdmVy eRxaBEjqWXtfC044RCYf cDsnPlBhdGllbnQg ZXmuURh6Q9ExQjjauDD+ LA09IQGiYK82uDTukXUz d2cqzNz8HxMtVQOtYCV5 tVgrTGwyi5CjXOXv D86cxBOtz8I6QZJtjEhq lMJfXpSslNY0pO7aZEbz mkjuh6hvxkrdQatyx9ri gi44aH75K34oLUhh ZHRoPSIzMCUiIHZhbGln qu2buL0jGs6+PGNvbCB3 zAX9oI6pBRHwEeL1XFgh O577DsJebKAdZsvl g9aim5jsoQj8AgH4RYIm kyXkdWfmNZN0m3NuSz74 O25lUQvmVBQrOZZrNIQo TKBqkOohvk9evL1r Ii8+VVZmxXH2uLU5nH2i DbSuXvV5OSyvO943McQs mZGvEbnnE08gG8SikPG+ XLDiGln8QVSdnJjz QH2raROrATdgPd9pCYN6 WaUbZgFlALvpL1ZjNQKy orqtupnnkKO0VTYrPGWm vS26Za7rhTsnQOCl mXXQkR8hiavxu4rsosax PmXsUTMlUYq6LNs6YITi wCwiRhTyNTA5HtP3BSI2 tSZrcO4agUimihvf kE8xE4VxRJOlrtrlOs23 nN1tBeTfZnE9BNkfWyo+ K4IIPmjeWZ8TL9fVVMtc SzwvdGQ+PHRkIHN0 fCovZYzzFKRmlZ7wJJNo V9c9ItIwBkW9LUnsX2Mu FFXirazwEd83sJ7uMtJz UcE5NXybJ3WuhsD4 ERBtbTIvBCwxYHS8E43w j0U4AEPuVLXbUDX8yNP0 tO4fvHplbkwodADpvCsp dmVydGljYWwtYWxp N117FESacUcvWwDwAnN3 NpJ0QhD2J8YuUwg0OXXk kRnpKW2dnQRlLXdgPf3n eDznnHdzBB9hZADa bxcmCIUikQ5cKCIycHJd aFxoPS9vTYPkcorpi639 NeBrNGM8LQSrvGTxA6Kn wC1qVuQbSLLqHGAu C5NmoTSoNZczF067SVgs AtG0TGPbbaSqZ2FaYIXq bEepTuW0z2D9Fx30XSFY ZWFyczwvdGQ+PHRk EBQ5pOloLCceAUMdkO5a RBMkS6l7MyAeNgV5TPpf O8SwLZZuqgacMc26iH4r RsSkTzH2CFafI4Wd pxT2GEUesRVmXCyqDHW3 Q94lj2D7VYNwLQOdFIE7 nQD2zA5eqBaekpelrXNz dDsgdmVydGljYWwt LOwzK019DIAwmKufOh4K JEP0W7OkNhx5SXQflAhu XS3qhFFvULqqOp9czEqr qTqoOC3yCXXgjysi IDPunP9bLURpgJJteHyh QI2fLTVbjeelk511FzUx HIE6RTLxmABpV4WzdR0z CvSiRYAkNCEeN4On fGZbFWcqG951DHrpToZ9 NSWnlfSdE1ArSLJgwVql SpM0n1A1Gk7YUCqktVP+ EY53su65T6AcJrdh Ibg1IDRdZOZ1uWK1cS0c BBDnMRzsy9R4kDS8Y2Kr prAayy5ju2slIICuAYyy T43moXJrb1Y5IADk zQR8XUSwtDccZfSafR40 Oyc+GJSmyGldb2UhCyja p1cms3nuuIf5NbXlBNNe syOrxUjpLIO9v3Dh Io59M18nSRahGVUsCVAw JEFgKYFfgSpnte7wuF3m Ii8+IXCbfOA4cYU8jV6i GtQoTxQ3CIthM011 IxQcaZWaClthg6nkl5zq oHs0PvEyMNYszwYlqApf JWA1r9XhYj77F1CahZsb w5KtWlo4ik76zUFw y1I6fMW5W4AhQRBgzssr iQEwwUlgWT9zHTXirisy OXCysN5mZVCbB5t7GkUw LmZ0DQoqK4YntxE0 AEGooTGoJFJntAZDoW9d urmip7fktmedEmYkZNKb AUk2UFb3ELYnjCzjZcBb PXP2DfY0QUW8cWEu vU7yoUnxksyghT2bMpw+ VRt8h6kmiOTvVH1aqDR2 UE30UH33wLWkc7A8yHR5 P9UgDKIdtojvlwzo rLJ3PESfXTVbjP87Th0g qHthDl3bKHXsAEL0BKCs eHQzU4FdlR2uVjZiWXDg GTYpY0NolXTaHWji S119JSzqFqS7TRRbytWn W8YsMTDjdTdlPyR6m8L5 He2EFE07FQ41VM93oOXc g5F0dXA1V6UqFWNt sqbobvbjdTD9MHYlUCOs dO90Ss6tqDylUj7mZHMa WSC1SMSewPJsG5DhsT4l IkBsURChKHYqT1Gi kMAeGLnoD078PQlmVwK1 CBBqdzOlM1LvRMUajRso DiX9j6X6Dv0VYt14BY49 TK08sJPdc8C6jRR1 E8LbGXWcgzjybiiavAF6 REZwWZStqL83Ql9laVdm Lg5oSLQcFRT0ITJboJMy P2EmgN8qShWnBATs HNYmU6NenXPrXYbxP721 PWmjVfN4HXDqyzHqC7Ov BVVbfKauWtA8j9N1Xq6Z MBpwsri4H5SaTomj dHI+JC21GGGpAT30aFMi lXQvr4qjfHm3LnEtAVBo GOS7wWpiTUauh3MhPFOh T78zuMPdr1B4UXJh bGx (more content not included)... [facility] Wound Care Noteon 10-28-2023 Wound Care Note [id number] [email or web address] Note [phone] [id number] [email or web address] Coding Summary HTMLBase 64 LpakapckUNh6lDf+PGhl YWQ+GB3FKQFkK22ngLCw gA4yN5EVIZnWCetmGYLE MKwCJtFyrxReKI5ceOFk ZXJu IC8+UF5jUEQvUtczvUUf a8U4hQW5G34gvs4jVOev zGL6BIZuDaRaueahh0wi zPm1HFdqRcvhFbWr IXYbfI52ELC1fX41Bf52 xTYxxDRgb9kwcBw9SwWp YSRzCGA0tYkfXZfoz3Rc AOQyA74puNLkt6L2 IGNvbGxhcHNlOyBlbXB0 iW0vYWelapafc0hvldlg Fxs7ne67iPStr6T5gKB1 J3CnmmU8BPRpvZUo YbqwuCKUjJ1ubfjdc7ps vqqzYfHmJWWdFOy9LRj4 JEQhpHfeOvImSQ08ZLV5 QRWjojZuO4HfLGPf pGhiEnM9a5Q8Md2BP6LD GdayR3EIIAXHCPnrfCN+ VI53ss35Y2OlZvbvBhm8 GSMuTXC9nUT8qS4z LYRuBIwrq1V0hPC0L7Cb dzEtjc2lb9zfSHJbMMac D14enSIiv3N4AYDdmTK8 ZBVeqJolVmUixQ07 Oyc+GDSyuNeeg1YdWmkd j5gjb0thkYp0AkoiNKBx ghIbqOrtKEN4n9BbPc6t LRTxuMW7jBF0eL1o AoGjTvI8LQucM476ByRx sVUoSdlqR22vV5YjfMM+ CCWxYob7ADZnkEmbLW9v P8RfYBPsgjhmrKZk kDnhTJ9lKAFetdnvSDRu aW3fWXNsC1w1TeOoIqE1 YNmcC6RfICBsnuzpKw66 pB4vNdBpUhK6CDjz S9BjmpP0RUTzjXPdUZcx TNF8U33hr1W8GQPtVUBv MED8vTJ3mY8grZkuhehb bGVmdDsgdmVydGlj NRriSZnbM517OWTstUfn PkNvZGluZyBEYXRlOiAg MDYvMTIvMjAyNDwvdGQ+ WVZeSBT0mBjpACDb kTPeFWodWa6mlWoerNjy TZ2cGIVwpwzeLDLmqY1w PPNowFVvpNobWA2vAUWy sknto279JbHyGBS8 MROdoNFkK5NrdC8jWfRc JQZuPKMaJ8RwgTQkPYjd Y545YGwoYhG8AGWdlhJr N7KgGNZdkWczHzS2 o4J4Eg1Hr3JayeoeH5Cp vTGeYcBkEkrkPEd1V7Sb PjwvdHI+AN70PXOyLI65 XBk7EDZ7oKosHHsk XUDvP0SuzC7sGeNeQSQh ZGRkOyc+PHRhYmxlIHdp ZHRoPScxMDAlJyBzdHls CP7wIl3dXWRvPVJa fHrwcIEkGbHuj2sbDKTr YGleOH0lnVdjO7AxhHM8 IWMnf3v2Mz98L02wD1Xn dXA+CEOjpVT9uML4 hZ7bJiQiXlO3OXhmA521 ZvLywCPjNicjy2qur3id rBt2EgM5DXAnnbPrhOdm BBA3e3FcAq07H91u IHdpZHRoPSIxNSUiIHZh yBoplk2kkD0jNw5+PGNv oFO3kTK6yY2wEeHvCcD0 WBwqS697EoCwvMWf Fekat2pdc5ypnPr4LyIk VVNujrTwvNlyLUL8y7Zr Kj08V0GtyBxzl8OjNgd8 wu68pILaw7K1pBQ3 R1QuLSCknyngvSVgfOny YP7nMRGbhomeZKJvbY8v GYVwE7q1QpNdXsI7WWyw I0KjhrZ2DIBjmMVl WVWmsPXLyS2predvu6ks bbrzRkXeHEUjWDj6FRg0 ZWWyvAblWmNeEVF0TwV4 DGF3zAJnvX8gxEzf klkebN3zVvq+QKS9xLSi nUKURP5bNnevbWA+PHRk GQP1sOqhGKgpCEHniF0r UAFrP0c0UoYtZgN5 DRbeJ1XblrV9NSRsoHCf IBOmrUBIwT3iducog5sw srugAlLjWNUvOKe8YYo4 LWFsaWduOiBsZWZ0 WnG1FXG0zSOvpX9wxPrf vipcfK8mKkv+QmlydGgg EAH9WHp0T7NhHno0WXZg gWepVY4wbMVjSZzh Hk7jfDdlgHkpJL4sQULv prmbj840VsZlz8lvZPAr nPByEAouWYI9K30qb3C7 RYYgBETqGWM1kHD6 zG0miZkviwqglBPvqSmi xgVwoOpeOKllDDbzJ617 OETniKlrToTfZVp9T5Se Hui2UKCsmXebTR5c aXYgYDfkDe8vmTaygWih PG8mVDQocdjrs022QzVm b7hfLMVnsJVdUTcbCIF5 N02at6M1FVErGBNl KTE9bJI7yY1krGciyikc bGVmdDsgdmVydGljYWwt UQimT393HLZrxVtaBrLa wUw1R3LzKpr5ZSPk sZhsOU9gtKZiEFujUm1c cGctpUqiJY5wTOPeylwg l341PeQee0giOJPcuNIp KQptXLX1T57bu8S1 BCErKGJrMAG4nAW8pB9i bGlnbjogbGVmdDsgdmVy hIuwTLevJRwvP494IVHn cDsnPlBhdGllbnQg LLqlQEx2R4XuAvroqAI+ YY76YNFpBE36vGIawWFy l6bhdGw0JcKaCVCdGQP2 sGjgBWmbf8YaBNEs H39eaUZqr4H4YZPqbZao rANrTzIytLW0mH4dAXwq qpmns0hbboqhEblya3ii au29uH16D52fNGqg ZHRoPSIzMCUiIHZhbGln dv9hyN1qNr6+PGNvbCB3 eMM5wC9aOPBqAxR0JWbb Q179JuSeuTMhNuxc e1jwd5rihTt7YwJ9SWVe rfLhmPdeUXM7y1SmTu52 G78rFPdyKWNoVDZkTWMk YGJdcVvane3oiE7a Ii8+TSTbvCJ5tKA6xX1t VeHjRgG5VHkaF094XsHd tGPoIkuwO23pB4KzlZE+ CRLzNkm9CDVpbXpd BV8lzUBoWPqwYv1kAAS4 YpHkDkDpOKryY3XpRFXj vpwwbmyqbDE9BJXlEPBi qJ93Oj7nuEdcEUPs kRWLlI3xipviq7cgqgdb DxJvFQNzGZj2KUb2TGGl mJymTsGyODU5YeY0MON3 uNMohM3ynWwinrfw zA5fL4FzWYBrunssBb32 lC0xToSqOuD6ORltVmx+ Q8FHEifpZF2IQ9hWKAck SzwvdGQ+PHRkIHN0 dSylKYwzIDTxiB3fQMWz V9r6GmYiIvA5ARddM3Qe PFYijgvbIi37jL9mYpGt XtM9MYjkY0VpudT7 ZNAtnZYpPBgcRAH5Q36m z6U6GINzIIUpXUA9aYS4 cW6taHuxznoqvIAceGac dmVydGljYWwtYWxp T415ABCzpNumIrJkGzZ7 MbB1EpH9B8McBsu6NXDx xDknKT8jvZZsWUqcWx2p zJdvnJboEM2aKMGt loabYLTmkL2zANZeyESy yLykTC7zJQKduxibd748 TyKhHSR2KCMupXWjQ3Us sZ0vOdSkITWzGYXj N7OlkMJdDUieZ058DYfi ItL1GQDtcpJeB9CoAIVc gIzbJyT5s3P9Re29YYPI ZWFyczwvdGQ+PHRk HOC9bAzwWVjgVKQizB9n DSRiJ0v2TdUpVqQ7EKqc I0TkWLMmzfcoWg47fA7s LdZpPpE7XOmuB8Om bbV6FPZorUBmRLcuGGV8 N57nk5Q9MUFwEAFzEXZ1 rOF1qO8scAxwotbnbNJo dDsgdmVydGljYWwt WBhfT157SDUavJqqXp4H NTN0F5DmQrr3KXLxkUwi TL9cbFSkOGlbXp5ntXwx yLblNQ6sAWYgdzbl USHlmA6lAPPrlRTtoXow UE5vNGPkkicdh952VmRz JED7MFNphCYtD9YzuL2g AxFgJISvIOSkH1Mq gBMmDPnhH423PVuqLoW6 XOFbsxOxE3KyATTlcZhw SoY9o9P8Xx0YRMzgmYM+ QO92xc36N7NlBjuj Agd5HQLoJZC5ePN5fN2p TXLkWQiay1U1sWS8J2Cn zsKegc0bl4myEHCyNPnh Q76sxZWeb9O4HCBg qJW1ZWOttVrcEfWefG46 Oyc+XEBtcGkjo1AnUqdr v1kuf5irmUa8HkEyZDHk elOlsAgjWST4o8Py Ff14F68xIUngKLCoEIPz YWIhOACowEbuyc0ykU7f Ii8+HOGvdVN5hKV1rA1v ZlAlDrK3NNpqK013 RgWbhQDtLqfus7efc8yf iBi7SiZnZYOlzsKkbPqx XTD2y7KgNo16W2NmqWie s6CqCkk7uo75gSZw r6G1hEW4W6DnBTUsdkie nMEkkCivEO2fVTRqdghl FCTjtQ9yFSJwI0t3AwSk RiA9FLvyB7VqvrV9 TCFumTToXGRgvBAHtM7e wtqbo0ukrzylCzMvXRXd JPv9UHn2ORYdfGazRgDs QOI5JsR1MIZ9fXDu pO1mfZxuqjwglU7xOut+ TJp7j3ahsEKyBJ4igLR5 NB36ET50yBJbi5A2vHG8 K0JkMUZgrayrlexz rUP9EBKyJKFxiQ46Ml5r yOldTj5lEDMvCJH5VUUw fIEoV3HpcH2gMtGdEDGt GAUnM5VijASxQVgp O882VDqrTjW0JDDwgeLq X2RsNVYxfBebQoS6t2T4 Ad7KEY21VH22UW27xPVt n0V4kNH2D6OpLMIs hqzpcbuxxVO2BVGuIJRi kV74Wj0igOyvKe2kLAQw XYO5FLHqjXEtD0DuzI5o JmBzWZWgZYQxB9Gl nMXvXVahJ389LFgqFqN5 HBEtcbRyA5QnJHPjnBtw GvE9r4W5Rl9JUv02HQ27 XM95hKKpc8M3hJZ4 T4HsYNXucfilznnwbZL0 PJHuSZAdgD27Gf8rvDmt Lg3eYSGqPJS0VVRxhKJm J8SuuD9rGrJfQBDy FWGuR8UuyUGqWHnmD114 THgpPaA1TAOikvZjS7Bj VCPpwRjeToL0x2Y2Cy5Z GYejcpu2O9ZkBylu dHI+QV73SYLfWN59dMFn dNCzi9ozeLc4OoZyOVFn YNX0vFjpHOeye3JpUYMw M64cjZApm6K9OTHa bGx (more content not included)... [facility] Coding Summary HTMLBase 64 JggypowsSMz7pRv+PGhl YWQ+EU2NQCHwF73qhEWq fX4dZ4UVUVkTHmklPWJX EYdEZrGrbvVwQX9kxZCc ZXJu IC8+LB0qOHMjGgranGMg i7B6oTZ8V35jfg9aZMjy lXP0KQKuHiFnytwbp7ta jAv3TIlpNrcnUiLa LNYmnZ84NPJ3hC15Ke88 mLQqhNGrj2corBl9ThCs UUDhANS9tJsbFSaax1Ou WVRhJ26rkXWci0I4 IGNvbGxhcHNlOyBlbXB0 qB7uIZotoaogf8ioezbg Owr2jy91jFJgs7U7hDE1 P1GbwtF5VWAlkHKh JmlbvRZQyG9opxwwg5sw gtuiWcLuYAZvMMq6TQu8 IOUceOzcIzBlIL99SAX6 SKJzqhQuI2EtCOWa uHruUuS7s3P4Fo4SP3FY HqpyY6UXMHFRXZtfzYO+ SX26qf30C1SkXrmqLbf1 YCRdDQI7dKQ1nG3h ZXJcOQkwl5N7xRH7M8Jg hjHhhx4pi8zkKEAcPBhs X90ftQRvt6U8MVQulSC7 QQFniNoqQvGfrT15 Oyc+DYXdfFbvl0ViNmdu m4mco2ecgZg7VccmTHJf ryVpuHdjJBF0y5XfRt8n CNIqqQV9vDD5bB9d OcPvUqO0DOnjF270YwLq cUJbKzehN59uK3JwyNL+ MCOlHxz2ECUkdHigMC4z L9HqVJUujganeVEe xHisSB3vXDJrgabrXGTx cO1nXCGfZ1j5ZaIoNgQ9 HIdxI9ChWETxbcxqTc26 qL3aKxZlEhE3FYiw F1HhxqW6UCLxjGUfWFnt JOC0S26ve6W1OJHxEKXh NNG4bWB7aG2xiLvdtril bGVmdDsgdmVydGlj SIdyYPhhA033XCUonYpy PkNvZGluZyBEYXRlOiAg MDYvMTIvMjAyNDwvdGQ+ AKRoHSQ3tIrhFIBc pKPgKVlaPd7qtVsgqZyi ZY1hFSOsrecjOYDikS8y TMEowUJkpGkyWM8wMYRh cyedw373DmPgJUY0 WUTkwQEiT4SsxJ9bOgCg UVVyEHZiB9EeaRRjKEda F620HQpiGqW1LSUgifEf Z7KnKCNpcCxdEfP3 g3C8Nj3Pn7EketdgV6Nz wITmOaKrUjuaYFd7F7Xk PjwvdHI+BB99LDBaZD33 VSc7ZXY1rXbbFEke AIDrE4FfjS1jSoPhMXEn ZGRkOyc+PHRhYmxlIHdp ZHRoPScxMDAlJyBzdHls WB5tJp2iTCMnQKLw cByvdNOqPlHtt0noVIFn TJkyCV6qoRrxA2IjbDG8 LSJqb2o5Rv82B98pN4Sg dXA+KDFoqDR4yGD2 iW1vOmQgAhN3IIgaI870 ByRrmKUmDekde0ang1vn yOk8YoC1UPOhybKgvUxc DZU2u7DjIs88V80g IHdpZHRoPSIxNSUiIHZh yRgbcm2nqH1yLg9+PGNv bLU7xME2sE7yBdGbUvS7 MUcyE851NiAbzAWj Sijhs5ygb4wmxBn3ThYr TSSowaIkiAaxPHG6z6Zz Ju26W6CanAeaz6YlGst8 gj26mPIud9H6jVC2 X7UlHIKzpiuztFWwpIxx PU2zJLHezjnxGYKtaQ7x LLNaC2l4ZbRjTvJ5HDdd N0PrgdL1PYYzzZAf WUUatMMCcO9ngjbed2nt vxhfAjPeHDBlGSz5LKx8 OHLssWrlItRjMIW5CiK6 VCM3aIMptK6icOci czkyfZ3eXpe+DRH9jVCl nPKRIP6uPaqspNL+PHRk KUG8hIzgMOkhALYjqB5w NVAcY8u1YdPjArK5 NKfdO7JgctQ6RGJksDOo VGMwqMPWdK4eogoed1dl fjfvEeYaWCKjSFw4ISk8 LWFsaWduOiBsZWZ0 JlO7MJU6qYImbA4amXjr ruoolZ1rXpe+QmlydGgg GHR8IIf3Q0JqZyc5STGy zMpaPJ2xqHZaGDlq Wr5nyVwdxMcuSP7kHAJe jocap395MuFtm7ttRZSs vHRxRDcqEKY5C77eh9Y3 JQWxMUJwTYQ3bGY8 qE5itHxegcbhkMTpqWje xlWsoXdyBKoqBQudO425 HNManDpqVlGtYEe9J0On Jrz1NUTarMapUE9f qKNiIWefCq2lmGwocMrz NG0qZSDpmpfrj020TcDr b8glODLjvRXaHImgZYO2 J36ag5A4AXQfVVZd PZA6zVI7cS0hySfrgwpa bGVmdDsgdmVydGljYWwt GIjnG363LIAbiYrcXtVv aRg4U4QbBry5KJNo uRulIH5vpVVgDGrkQp2x yUkosHbsVJ7yFFUuccvv i713BiUpp5gdBGFerCTo AUfpSBD1V83fh0H1 SXNwRKUgYPA9gIV7gR9x bGlnbjogbGVmdDsgdmVy oXmvXNzoUUiaL570JTBe cDsnPlBhdGllbnQg HFcxZEu4E6JzGcrbxWW+ BX34OCKzKC82sNLxlSQr l4wqbWd2QzNkCUHjJBR5 fScnTKddx4YmLJIi M40ihAGyg0W2ZLBqfZej xNLlEsWqfXP3nH1fFEtc gbepy8gkmnpsFreqd5mz ml32kI12G07bTQlo ZHRoPSIzMCUiIHZhbGln fm1rjN6eWg0+PGNvbCB3 jBZ9iN6gRKKlCcT0WDcc I342BfBcrRYuMmpd v4pyb7uoiSg8ItR0OBQm tgFkaCxjOOE5u8AdOx77 W19nOZebZXUoRPBcCAPi BGSzvTahzb3enT3f Ii8+HBTrzPK4rHM7rF1n QaHsAfA3BBvxQ649AaNv oSYbWcmvX76wM6FyiLO+ LOKgHbg2VDGiqHkz SN4mpECdTPhoDw9oXHE2 PxWnHrAuOOloW2WbEYYk dalipopflAS2GPJoSRTu wR82Jw0raVycFQRo iJPPeK0pyzcyb0uefgvy ToZtXCDaJOv5PMw1OEAa lBwrMkZoHTW5ZoQ4QMO3 eTTikN4rlAmirbpn wZ6uC6LhJXWnpywrMi22 aJ1bXhJoAiV7DDwoFxk+ O2TPFfnmNM6RJ9bKGVom SzwvdGQ+PHRkIHN0 dMkrBFzuULOtnS8cXOKw Z1e1AvTsWtH1QQgaV0Qk GOTzyltiSl58mO6wPmBt KxV1OCxqW4BqnbD4 WWNvoTTmUGzrUZT1D10j p7O6NCMiZDGjXMJ0gLJ1 iN4bqAkfjpssiZPimFts dmVydGljYWwtYWxp R008JDMdyIcaQvStWfM5 QfE5BcF4B6IqKzk8QCLz sBaxAF5ywIJyLEfaIn9f iVmenUudLC2eKSBl aohcVHHdxE1sZHUirVTc yVohIQ2iDFUifsrcb032 EmXwVCV7LDIfeYAdX7Jo bS3bHpMxDFKhICPj C3XbkUDvOHfkN797DLkx ApJ0KRXxiwNhK7QrDCPc jGetQsN4m6Q7Uc54MUGZ ZWFyczwvdGQ+PHRk WUM7rOnnUQpzDWIabY8x DWKsS3w4UgPvEfS2UBku Z3RlZOGltcwjMw29cT0q OuXlHoO1ZDpbJ2Yn nnG9DWTgbSZzVQquXQF5 Q23ku6N7XUGjDTYmWTI7 nNA8eL9xqDgljvosxATo dDsgdmVydGljYWwt WOslF951LCMdrQnvYy8E JOB1N5XcCwk8MPUdxNpm GR0tqTBmTWusEe1lrUrd cOzbJL1lOSEacjen DZJotA7bEZQmnDKnqIfk EY0sAAInooywd230WrLj SMI7UHJpjAJyV8GgcI9x TpNmTDOmSAKqQ9Ww sHVsILorF192RUylDhK8 LHYupdOcF6EaBVThbJtk AoP7g4K2Go3QXPpneSK+ BW04ba73P4FmCqbb Quw8EMUqGQB7xAR6xZ1g OFZjAWfcw3M2hIJ6Y8Pc rcDjty2ps3ijFMFxCEyc K26tfLXtz2J3JRBx sMR4LQOguYmwZbPlqK07 Oyc+ACStqEiqw5QcEysg w3dxj9ruoCb0ApEnFZLf axHwmWkoROL2a8Or Dr82A37eHMrwRSVlQGBx MCOcOPIvkOyzwh4hvR4e Ii8+NRQjdKE2yZJ8aL2k CwOyFaB2UWmvU241 QsGxoXFmSknci7vwl6ye sVs6OwFkFARpylDeaVmb SAU4n2DoIi07G6RmpZew b0VrZah3cv74sZPh d4M9vLT3M6GuJWOwepdq xJFtyMlzZA0eORLimbps JJPygR7zBCOfG3m7EoSq PfB7AWshL0WfztP1 ALQkmKQcEVHsyIVSfD8m guahg7tdvwbzYiBzEHWx EHx4NWj2QUQkwUwvSjIs EXB7PcI6PYE3wTAt qA4dnSayymjtwI3iTua+ DFx1m6oejJXjFL5psDQ8 JX70HL16cDJij5G7tFP0 E7FxYLEmrxlavzuh fGD5JAByIAHzzV07Ej7v mMihXn6eEDGtGMN9JFVp eJLcV0BmjR7nFqIoESTm CZYnY3DdoBHpIGvy A663IQioIqL3NCCfelWw A9BhDZHdbQvqMpZ3k9O6 So8DUQ05FU71VJ80vXDa z5X4dSJ8T8VlQCSa sgfloeaqrCH1UCEhDCAe zW12Zj5vgJbeGr3yVXMb BMU2IEPkzMVpP2GsoU9c OgUvPLSkIMChH3Iv zQLuWZbeB943HPshTjE0 FLEofnAdI1KoRVXkxKjw FuB0h2M0Hc8NWx57BQ14 WK32qXMmn0V2gPZ1 U9DdOVWmgvttdhqthMU8 WPXuLMLlgQ34Cn1abEop Cf1hVMUsITN5IFDqkFDl A2EdfL0fSxLcXATs BVPtL6PjiJBdHAblJ410 LIboTfV8SMDchcKzC4Qk TTNfzIhtOqY4g3P8Gk0U NEavvhf6P0XuDhep dHI+PA79SJSvRV48gXNg dCLlr0swcEb0DmVaGBWa REH9bHhtRRxpw9WvDFDv B00dxGLxh7L9KJNg bGx (more content not included)... [facility] Wound Care Noteon 10-14-2023 Wound Care Note [phone] [id number] #[email or web address] [facility] Coding Summaryon 10-09-2023 Coding Summary HTMLBase 64 NqdkaihnZKi5bQs+PGhl YWQ+RD0FLSFaC35nfODx aI5xR6EGVLfEKhwbLXWH TAzINyRtxzNiTP1fnCZe ZXJu IC8+OM4wVJJsLunaqISk c4O3jSF1Y62kmz4bHDar yCY3BANfWdUhoeovb1hg xYl8SCraVnjmNdVq BUDueU01PMK5xU12Kv46 qWUosBZwv7ynpQa6NaLz DXGxNLA3gAzoPPirx0Wf SLJoV43hlPJuo3D0 IGNvbGxhcHNlOyBlbXB0 gG1tQJrjarcds4wrwogz Wds8kd46fJGli1P5vLC0 Y8BrwjD5DBIckEYj LncvhJEMmZ0zgvmtc8yp zhpfXuPvPBWqTMt8ACk4 AZUnbVbiHyJzBK73RKT3 ABHcryDsH3QcWGYp rXasSjL3n0X7Ve4JD1WH DrcoU4BCYFILBWjcpGB+ XW44tg69H6EdMdvyXmt8 GCByUOF9uVP1hV7i BSEtLJcnw6B1yAZ2T3Cr ajBmay6cd6ukSPLkEFjh M46icUNse9U8QNMaeON9 XGAbmNodPdDueZ58 Oyc+OVTnsNknx2VbWagd c7uve4oyjCa7KuvtRFUa ieBxbXesVGI8q5TlGj8j NBMcxOA0rFY5aS2s YdKnUhW5JYglN852LfRv uEItBwhiA71cU9KnpMM+ ZZSnCqu2OAZtpMpqHE3e I9LyXSMeojvleGXp uEnxWC9uLBOfamxkJJUm zI7lUZUbI8f3TeMsEjW4 UTwjS5KgLMNcadtfSu20 tV5ePoLkReU4ELyq F7EtxbZ9AZJmeHOwICqy CMG3E17bw2T2WTJvOGXi PVZ5aZQ1cS7eoXwadmny bGVmdDsgdmVydGlj UFmdQMthY587HIOtmYwd PkNvZGluZyBEYXRlOiAg MDYvMDUvMjAyNDwvdGQ+ AHTsESD7xDnySJRk rBTlXZzvSl0gdEgimTou LO4gFCOqpkplPZZolW1k IPUnrBDqyIosLI1xAJLc tdaju699WqWfXKR3 BFRcdRApL5CtoT8xXyUw FHVfFMFoE9JvsFQqKZsk Q338SEjnVnZ3EMAoqbDc H6IsBWEouYwhNrE2 q3A8Lw0Zf8GbmfesG3Ui wEQiFlTpHonaIDo9U4Vo PjwvdHI+TO50RFEgPW41 SFg2GLK4sMvsPIhe QJWvV8LalT4pXvUsIUIv ZGRkOyc+PHRhYmxlIHdp ZHRoPScxMDAlJyBzdHls JZ5jAi6qEKGbTKZp jLsfbNIiQwQin1wgYBHk GNvjIW8zpTjdK7UqnXR1 SQGbm3x6Nk56Y91bB0Be dXA+YVIutXE4pYZ1 xV7zFrOgZlK5WOdpT081 YvBweJCuKlkns8tdj1re iDf5NlK0AIFqxlPjhPuq LXN4d0WvMw93O42k IHdpZHRoPSIxNSUiIHZh bYgnbm5elU0yMw2+PGNv hNU9oZJ3oZ1eVbGtWeM5 JLnwV972WvRpoDEc Knlok1jmf6wdlOe1OdOr QXItywMkvGesKSK8s0Uf Ux60L3ZdjUasp5CtRvi5 uk12zALgd7N4oJT0 Z8SjBPEjaqzlxGAlzApq UK7nAHYvskmdQOIwwK0c OZBxE5j6XlOeOeJ8SJkm H1BsfyE1ZLXmtXPz LZSzoWKAxI6fqhnny5qp nztiFaLcKEBsCNp9TNu5 EVLvaHwhWpBqHRF1UlM7 YHG4fGNliY3pmTsu jbcnvB7rPhe+TIY2jJCm uZVQWM0kRwxevGQ+PHRk VBX5bZkgCKtlKOTskN4z XTFaJ7w9ArRsYxZ5 UHepW4OdybY9EMIbfAGi IFUkgTWHgD1mtnucq5nn gnceSsYdLGCnBQx8BJv7 LWFsaWduOiBsZWZ0 PpD0XKY1aKLzrG2shOqz sipjxE8tKgm+QmlydGgg COG4TLf3C2SpJji7PYYd aXbwIJ2biENzXCdr Td9ljGiycPvfLU3rMOLr qqvta545UgUry9aoASUo dVEsNXxyNRA8S84dz7A4 VLHyIHNwVNC3nBX6 zC8phYjesbmajYYlmSga zsSbiBbyKSboNUrfU592 FFJmdLwwUiWeKWq1B0Df Fyl3WTQfxBtfOL8l xTLvAIovBh6geAvlpBgn TC3kDAAicqosi282UvNa l8hzXSWruSPfLKngWCF5 C24gq0R1ENIeAGEq GEJ7sMN7bJ0eyYssjvvn bGVmdDsgdmVydGljYWwt UNgiO800ZTCyzCvfWqCr xAw9H4JtGpf7IDOu aMpgQS5zqTVtGZibOr9t aCnnmTchDI0pHEBgtlaf x297WsRqa1lvRPSmgEPj YBvfFLM0U06pm1G2 NCVqKJBqWLL8wQA5iT3s bGlnbjogbGVmdDsgdmVy iRquFSygHXczA649RZAu cDsnPlBhdGllbnQg XLoxPJy2H4DuYqrkxTP+ TR96TYDvKU13uYRmnGEr g6euwGj6IeAtAWFoBPM1 nMuaPKpkx0TaBZWw O42ujLDlx9I9JCHjbIvu dVKaKhCgwDQ6jK3lDZkb ykfkl5tzbmcqOhgjx4ry ds28oH40V49oGMeh ZHRoPSIzMCUiIHZhbGln nx6ufW2kRp7+PGNvbCB3 eRQ1gO8dQSMcHkL3UBiz R114ZjEacGMsBodg l3mvq1gndPu3WdL6KDRe qlGdaZdpDNB5l1VaVc25 R90fKCdiFITpLJJoYINg PEVyePdcxe2qlH0f Ii8+XJCduSC3kOB3zO3p SxXiGzK1UVbaJ106CmJd wWWzVgdvH85oV0WwgOU+ TXRnSkk4MSLvtMnm DO3qdOUoHUmzIt3xYWH5 NcKgVoSlIWljL8NyBQZd qronyahgjKU7UUNlGXSm dV41Ok1qpKwaBNXa pYKDqX0bwxdij0qfyznk IrOiPQXpKTd7KDo6UOUt eLxhXwLpOMG7MdU6HOA4 eBCkcF5dnWtenzrd fR0mO0OaJCJqlsxlNn32 hY0dMyXfGaX4RLinVds+ Y3ORYwtuVU0PZ4iMZIoc SzwvdGQ+PHRkIHN0 dQpvTBztNBOctJ6bAQTo R8x2PfRmDgA8SEbiT8Il FADmjxrwBf64gX5vVaTm ShF5BDgbX7VheyB7 VEQqsSEsMYlnELR6X98z i6F8FIReIGDqPXD0nEM9 pP1xfUvjdxjibYYshHht dmVydGljYWwtYWxp W544KRHirSeqZzXfBfO5 LjK2KoO7E2LqUzs1ELVf cJsgVY7vqWNiHUsxOt6r bUkjdCgdVW3xMBYw hvyfPCBuwD7hEKTbnYUx qLtuHE1fNLKikxyeq497 LpEzBNV0QEPtaMErU7Pf nN0nHwCbSIUkTOBd U1QweKGmVGixN030PIro BoO8CDZprvFdZ2DzJRSd oSibBnB8g5H3Kk28PAJL ZWFyczwvdGQ+PHRk AXP8uSwnUHsbOLCzmG3m DURzB8z7ZbBrTsA1XErv X1ArKCOspeprTh04cA7q BcZjZiD3EEhcI7Ad hiI0SNWmaGDwYVzoCJX1 G54zl3N8VVAaHIKnWTF9 lGS8aW1nxSlwwjyztAHq dDsgdmVydGljYWwt CUreN123BMVocSfxKr1G IMS9F9RgYvf1DVTxoPxx QX8osFIrMWdhOx6rpPbx iWpbCJ7vAMSoulza OCCoeT9oPAMgyWMsmRkv BQ2bURQitwbej688LtSm DHL7MJSuaYHzN0UkdX8u CpVyGFIbMFNxB3Hx nLJpMFixH571TLemQiS2 SPKzrbPtF2EoPAXzoIpw KaM7m7O8Sb6DEKrulNO+ DZ79gx76O1XaNkfu Dsy1OWMhLXP7cAH5tW1r LRUjFCxbd5M6cWB4A6Jh hnLcmr5jl8ppYQGxNVrt M48ufTZvp7X4WZZo rOA8ADOliAkwPvBtlT93 Oyc+FKRihWdtw1CaExif x5tas1jygZb0TwUyZIFf ctYfsJkuDSB8m1Yz Pc48M64kQNbvUZGlTNXq XBIyROVkmBqzkl6eoE2m Ii8+NCVbcRI3lCN1gU5b LtSuLaW8HMnaY737 TmMuxCAvDtrii8qwl5bb yZg0ZxEeIAVklyFocOdg ZXZ0e3LgUs44T2MsqXpb k9NzVcl4it98oXDf f0A5vTT4Q5KrCFIohqqr eAIitNacAQ5dACFtaffm FSHheO1dXBKuI6h3GsYf JwR5NGekP1OzwaP0 TVMalAXtVCJmvJHYoW9j zuxvv0ngddkvVoRnDACo HHq0ZTa4VTPolBhyYyHa JYM9UtC5QLB1vKPg jA5vbFpvwkkgkD0tYif+ AVo5i8ogoYSuWP0hmUW5 GO13RY73hOAzs3H5nDO1 W3NiNQBlrtycjwqs qGD5ZZOrHFZflK95Hq7r uLbhPz7sLVHmCHI1HXAk mEVdE3FzjF9vLoSjPWRt DHFmD7DiwIMuQKqf X989BTdcUnC6SRGyzvRh Q1LcBPBboUxiFqQ8d9A3 Od3QCX14MJ83EV51cWKf h2F3eKM7H8QqUXFm hnlcsffgcLR7RVUtKTNh gM47Tc9jmRvvAq1lCMHy EWP1QVDmnEHiX8YjkS2g DnZcNJIoOJVuE8Bd dUKvHJbxD709CLkpPbY8 GVRqdmOqA8NxRREldNkm XlU4n5K9Mq0ZUe54SG36 WW11sLHig2B1mVH1 G5EnQXTlnwbezlrdwVA3 DOOfQGGrvF72Du4hhBqk Oe4jEYQbFVV9TXBxuHWw P4BglM5jEcCxGVRj GAJwF9RuaHNxYWpxO380 LEqaJyU1ZZGeylRaI3Ku PMEhyEttLbI0q7D8Sk5H BUzzuzu5U5YdJavm dHI+LA71JTEtRE45uXIo bIIwe9tofCn2JwQsJVAm KJI9hVctCKzmt5KqWUPy R59bzRPdm9Z2HSJh bGx (more content not included)... [facility] Coding Summary HTMLBase 64 SvfyobdlNWd1gKg+PGhl YWQ+WX0GJXUpE16cgHKe zD6gW0TYIVqQDsxaLHIA ZYuDOvZxuaUnWN5buDFs ZXJu IC8+WF9uXYBnPfmyrSKk c7X9hAI2M08ips0eYGze qEI5LPEpEmNcvvccz3yd hBk6BNvwIlsmTfKy RFPnsB07FRQ7fX16Cq39 wLZneTYrh0vffAq7IgEx CHHxPIE3eQbfVSpmv8Ka OWSjN53hhQDgs8D5 IGNvbGxhcHNlOyBlbXB0 kV4yRMieqjjcx5lroudf Hwu7by28fUJhl3D6gQO2 Q2NkcjU3NCRdnUBe QxzkmFXXlP8chabkt0ku mewmJoCjVLSaQRw4FHk5 LENzySyxGcCiYE24MPP5 DVFyamTjA9NuTCBi uTrtEyF8i6J3Sb0LW3BF ScdpB9FTOCLJKWyahTG+ SE42fq44A3UtKvlgYzh9 TOYjSZU5eWY6wH7j YOVfBRhdi0H5iHX9K0Tz utRhgs8ds1ajPNLqBUti R57ukMPxu2U0HGCtgVA6 EPYkqSodOcXmiI35 Oyc+ZOWiwBswp0HuUmfg i5gbn2evpOn3CgydXDRu znSetHzvBRW0u4PcFi5e ZLAtoLG1yRT1qL7o HmWbBlT6APyvC685GdWw rBQqObdjK17bP8ReoZA+ HMHoSfw5CMLqjHmoGI3i R7DuRCQqhvqotDQe kXsdKE7pCGFeyuycFVQr qC7nSOMuS0o0HoWnFtE8 MIbuQ0SnABCognrnDv69 hP0zQmZnZoB6GIpx B2RlffQ2FXKszFPpMDkb EIR5Q77lh7N5YOOiHAOi VXR1oNG9tV6ckSlyhzeg bGVmdDsgdmVydGlj FMrbIQagP560JPGcnGuj PkNvZGluZyBEYXRlOiAg MDYvMDUvMjAyNDwvdGQ+ VQYfRMG2xGekBOHx bNHvCHkjDu6iqNygoJps IS3iQFAelnvwFGUxpI8e CIUwfSYvtJwyPH6pZEKe lfffx274UiLxXTF5 WNXuuUGjO4RvaY8sZqKk CTUySPKfS7OjlAFvXNxf Z754SHeaSiT6XTYihbEk H5XkPOGlaSerYvV4 t8I3Nu5Ut8TmirbvP5Nk zLUgPvNuZzamJIo1T2Cu PjwvdHI+ZH04ANTfHW98 CEs6KQN3nIxrBWhf UULbR2HliN1nGnBeOKDy ZGRkOyc+PHRhYmxlIHdp ZHRoPScxMDAlJyBzdHls DT3qTa5xPUGuIXQi hGpqyZEqCkOvw8lpRNXc AEqnXD5ymVfsD0TiiZZ4 QJJcj2o2Hi29T32jC7Sm dXA+WUIlaFJ2xZY9 fK8aRkPsYoB1XFoiF666 JeQdaZStZntyv9xyk0pp hYy4HgN7ROSzjlQrtQru YPG2f4QhRu02A38c IHdpZHRoPSIxNSUiIHZh sScmmk9trM7tDf7+PGNv vPM2zGF4cS7zLfPuRaP2 OAnoK944QjGdiBMs Rzdbi6cdf4xsbOd4NhRl YZEdbxRlqRgzSSH7q2Wp Eu99L9VuaHxex5AkWdq3 yh34rJTgy9K4kGV2 O0QhUSZgcvebkAIvqAvl VZ4pVQDevaroLTVmhO5n WSIjG8a6MpGrJcV2YPcj R3DerlF5SVSvoUEn EUEhwDQCzX1vtjqys2ho jbuvQwJoAOLiLTu9FVe6 EBXxlRdrCaXfZFH6FzL6 UFR1jXBozJ9lxPht nfeciN5aByc+DVV0mSRi nIUKUU3gMwxynAX+PHRk RJL2jAxlGSpbDKWnbH8m GLZoS9p3VpRsYdP0 WPuvT6AngxJ6CAZpkCBm PHCerXGZkL0gyeqlm5wj aaakPbTjYGXsOQq3ZDf5 LWFsaWduOiBsZWZ0 MnI5GPZ1lTYvfS2wfMxf aeflmX0jExk+QmlydGgg NAR8JTp2P6MpYvu3GQFu vCblGP0xeNZuWGiq Yz4czGnnuUnfQP1zSCOk bkwtm657XvSbs5zaKRUt iCRnHIzuYDJ0U84tx8N6 SEDuVULjVQA5kQN4 gB8jvWxdecjbeMNshWyd dbAkyPpoOVviOHnuZ681 BHYjdZbsGuEdNTm9M8Br Beu1GTIdaQgfJB1z dDEhOGrjYb2awQtlgSux QN3wQVJazdfha488SoZy t8nyBAOrdZYoKGnwUUU0 G96ir0O2ILKrUPAr ZLQ2zSJ6pU4kfPjvuadl bGVmdDsgdmVydGljYWwt UKysE769BTVxvCuiZcLp rNx8M0AbPda9QAGy xLidJW4rkQPdXGzpOr7l hMwmjVdtHT0gXBKdxxyi r391CnBca1tnASVblLHh WJrkSXB5K02vs4N7 FNSzIMZnAKZ8rFE2vR8k bGlnbjogbGVmdDsgdmVy vDnhHFpoLMlmG295SXIq cDsnPlBhdGllbnQg BOhtYGy9I3SaXhlheVG+ UK79LDFfLQ17uYOquSBw q9txlDv2SjRjQZWcTEP7 dRtzOKirh8EwYEOs B39qtJWgz8B9HAKeyKjg oCJgEdWulYC7gE3oZOzv cnikv6oenjdnDubct0rm zy88bT55I96bPNkk ZHRoPSIzMCUiIHZhbGln tx8wbV7vSu5+PGNvbCB3 iVF1nU3kUCIhIdG9TQib A796AaLlmTFuZkdu j9iso7snpLw7FsM4WNBl xsHtoHytOVQ5b2ToWt39 O75bABfmNFXrJPJdESSt RFAnmEpolb9itO8t Ii8+FVWlpQZ0zEH7jP4r PjEsAzY4YUojU998ZfDw nVGuPkadM12eJ9QflHN+ EGEwDra9YIGheEwc UR0diBAxNTthSk9dPJR3 ZpPmDjLrTHmsG4KzAPKz iyuxgawsiQU7SVOjXEUa gS39Ug5htLkyBEMo fMRWhE6qvbdnv8vvyinh EvNkJFDwQQu2JEk2OXNt nRihPbRtPRZ5LjB7HHN5 lSGkjE3jrPhedbzz vW0qV2YgMGRcozkwQd93 xV8nVrMoNrP2JDqnFsk+ L5MVHhfsAX6FB6gHZTpi SzwvdGQ+PHRkIHN0 fRbuPSmgFBYezZ2oYDYp D8z1InXyNbQ5LSgoX5Df MAKzoqaaHp27gC5nOkOn SnD2WEbtX7PgnlL7 MGYsuMDnCKexEBV6O60z f3E5SPOjUPBlOQA5tBZ7 qM7cxSawblzduJBlwYhf dmVydGljYWwtYWxp E068RXUwjKevWkVzDnJ8 IeH1ZqO2F9OsDxi5LXPt uUcyFX2ovOAlUAdmBt1w nVofeYsuZJ5sEJFn ewcvSIFxhC4yFZYsgNNr iDhlDD8rETAeaeexi432 DkAnXTG0HSVqmLUmR3Eg zS9oUwHhMTPhTBXb B0ZktIPfGYkvK625ZGkg UlZ3TXEgxzUxZ5WaBOSk zObtIlP1d0R1Pr44ULWC ZWFyczwvdGQ+PHRk HRB7cNfkHRioVIMxnJ4p GEKoS5w8ScLrPmR3PYzh G0SsWJDyccasBe88yQ8n HyJpGiN7FHsdI6Gi sbX5CYXolHEuBBglXPV3 D09ww9M5QZAvVOVwJOJ5 jYF9zA4wfPrgkoateVQp dDsgdmVydGljYWwt ZEitM848UGVcoYrlLh9S JGM7A7LjIwe5CMGtzSxp HG7edZYcCVhoEb5aoNrc cKweIH7rTGKnerjz TLQqyZ2tTLJspAPjgXeh MW8dFUHilynya760GiWy KAX8TBGwhDCxW9EokO8g HcXaVULqKARcP9Gw mZJbZRygU729PLlfDhH9 TLZupuQsF6CpBWZbtMiq CzT8r6P3Kw9JJYexmWI+ EF98ls10Z3XoMwmt Myu9CPXqOMN7uMY0iJ6c RTZjCCwxl0M7aVD2M6Gv umLars0cy0jtAHQiDTfj C62yvTJmy5T4DPAe jBI9RZMhlHuzCoClxA14 Oyc+CDDynDxgq4PbEhdx x5baz0mlpJr2DaHdXEXs msOxiEnrQWY3x0Ox Zu28D09uDTncJRRzBOFe KZMjPHUifDxvxk4tqA2y Ii8+QQGbaZL0wZZ1hS4t FkZrEpP4BKdxD224 IwOaiMMkOsxtq5wrh8im uXi4UgVyBPYstdPwkNwt SRX6k5YkYu42W0KqqWqw a9GjOlw4ky98sABl k4M6tJT9K0MlXYIzumcv bFFkvZpmNP8yJTDbrzjn IKOwpO3uTFXlC7g6YmJf TaY7DCjsI3FfhmX6 CAEqdPKpLGBzzCPQpC1t pjlvy7rhxminXdGbDZZw ZKm5IDr4UUEhaXaqVhFh AUY0RmW5JEY0jUIb gQ7rpOsjmjbdkW0jKps+ TKo8j5iaxBPeAV9uiKU2 WL45DU22jJKgo8H2fDI6 V2PlBOPmmfttvnxu dZZ3NAEhQGBeuZ05Qk2t eZqcBr1pQTJcAUN6CVZb hRQbT1CczK7dJhAnPRTk ACUuW9UqwKTwACvv R677QNzhUvI8HSHeesFv I3QyOAOamGibZnU1p2J3 Jl8FGT44VU09AW09uOTg c9Q5pBV6T9XpSWBc lkggbnxztYZ9LGLuKOQr oX07By8jrHqvDt1xTYVb HGL6CVMefLNaC4RbeF3q OwFtJFTrIPZjT7Zv hDViQMrqX240QZxbScX3 RGWbdsIpI7YrEXWwbGus JnA0r9H0Gq3HZl51LW19 YL66hTSka4U3xFF2 W9KsEZRnoesucfqjjIT8 ZGOdRTGjeS75Vc3cvGyb Mu3lSQKsMDI9FEGwyHIf U1OgwA6yOdPtUJQb CMFqL1IroGCyXNakQ988 ZLtrWlF3LYOgtrKpG2Xc NADuyBmvXhZ7j9P3Ry1P DZrlpwj6V9FgUusm dHI+HG65JUPwUY61uNTi mNEzi7xmwIj6RcNhKMUd MFG9mXrfWSrkg5VjBFUs O25drPBkk9D3HUUr bGx (more content not included)... [facility] Wound Care Noteon 10-01-2023 Wound Care Note [id number] [facility] Ambulatory Patient Summaryon 09-25-2023 Ambulatory Patient Summary [address], [address] - Visit Summary For YRN RICARDO Age: 63 years Sex: MALE : 1960 Address: [address] [place] [address] [address] [facility] [address] [place], [address] Home: Work: -- Primary Care Provider: KAREN ZAPATA, LESLY To Race: White Ethnicity: Not or Language: Togolese Health Plan: 1?[facility], 2?[facility], 3?[facility] Reason for Visit: Three month follow up for med refills Prescription Information: If you have been given a prescription for narcotics, seek immediate medical attention if you have any difficulty breathing or any sudden status changes such as confusion and sleepiness. If you or anyone you know is experiencing suicidal thoughts, mental health, alcohol and/or drug addiction problems; contact the [facility] 26/11 Crisis Hotline -Text 4HJNT ql [phone]. Follow-Up Information With: Address: When: KAREN ZAPATA, LESLY To [facility] [address] [place] [address]/[address] [place] [address] In 3 months With: Address: When: KAREN ZAPATA, LESLY To [facility] [address] [place] [address]/[address] [place] [address] In 3 months Future Appointments [facility] Appt. Date: 12/24/2023 2:15 PM Scheduled Provider: Lesly Melchor MD [address] [place] [address] [place], [address] Future Orders No future orders Additional Goals [...] 3 m2 Body Mass Index: 47.2 kg/m2 [place] Body Weight Calculated: 84.047 kg BSA Measured: [...] for 5 week(s), 0 refills authorized [facility]h inhalation aerosol (fluticasone) 10 [...] tab(s)(650 Milligram) (more content not included)... [facility] Patient Handouton 09-25-2023 Patient Handout Orthopedics [...] walking or exercising. ? An inability to kiln loader items, twist your hand(s), or control the [...] aerobics, that increase your heart rate. ? Mroxj-zw-necjzv activities. These help your joints move more [...] above the (more content not included)... [facility] Coding Summaryon 09-20-2023 Coding Summary HTMLBase 64 YsdfxczhSWt3lBh+PGhl YWQ+DW6SMZBbF23eyYZb bZ1vQ9MWWHuCXerjEQWE VClBFaKabjCzMH8ffHKq ZXJu IC8+CY5sQKZnLohltKQd y2O6dAQ5J99jbc4lUBbk rBE4PGUbCuDxignyn0of qJz0GXxqJrerKhOn YQGikL55ODM8tC35Ei45 wQOdpMReh8jzhPs4DiZy JUVvIVT5mYhvSXzoo6Qy ZQHgQ79wyLHdw2H5 IGNvbGxhcHNlOyBlbXB0 pN2iCOcfrnqyw6hxgmva Xon2cv42sKEqi3X0nUO0 S7DndtT1LRTuqAEh LxgacQKBdC6aqyxaa5fx ehmtQtBwADWxYLf6DZa6 VBFbbVqtGtNhUC64UDB2 BKOsdrHkX4PlPELo zQxwEqH6u7Q7Qi4GG5YF TjbmL0YQABMMSDtlqGL+ MR02wt90Q0TzKepuKxj3 PQDhUXE9aQJ9mA1n UIQiKQvny9A5nTY7W6Hy evUjxa3wr5dzNTSlNMft D29qkDPye7I1HZGqkVC2 UOZfkXrnEsCgbG92 Oyc+AMSsuIqzs2EdEmka v5jng2imnBi0AmtzFYAc uiVwjHkkYSV6t5HjIc0z SZGygJG5fPS8iC9a OcLkHfG7BJulT719VtWl yDIaIbjbK03jC5NioZQ+ KQKtVnk0SPNgwXucWK8t I1NwNKNuohdvyFAf vQbuDE3uFRTmxszeEBJi lO8bPNMvH0w8HzHnJdJ9 XBcsP6BtVHWgzayhZu55 nP7cPxHbJcM0MUdi U0VcjrN5ARSczZRtAGam DBC2L37qy6T6MWDfRULi MVO5vEJ5eO4omJcxxolv bGVmdDsgdmVydGlj RKkuFNcsO523JDNezCbe PkNvZGluZyBEYXRlOiAg MDUvMTcvMjAyNDwvdGQ+ QGDbYPH9hXytDMDs uFNrLMknRh3meHacgHoq OF1pMBCynnakOVFndO8k TPHtsOAokQnzBV4pDVSl dhbag637AxWbSWF7 VGUntTTpJ7SxdV8wQkSh PPBkKIXrI4CclEVjABpv J484KOlpQsR6JATdrjXp F4VxPRDufXwfEgU6 k6M5Mx7Ei4VahswjO8Hq iRCcUlGoIwlkMGr7E5Or PjwvdHI+QO42JSCyJX22 YIq0VJD5uEjhPXop EQDyM9WqfK1oJgMmPPXc ZGRkOyc+PHRhYmxlIHdp ZHRoPScxMDAlJyBzdHls QU1iVw4rGDMzGQHk sPsbqXJlOuJzr8ziQJNa FJnvNO2esJywK5XywAC3 LZAgy7c5Mv64F73sS9Nt dXA+QKCdxBI3eUD0 lO1zUmYlSyI7WNlcT742 LaKicTHiVyitq6wqx3wy yJy7UkJ2YCPmjbOawAne XXQ7n8MmUu16S97w IHdpZHRoPSIxNSUiIHZh rGpozr3hpL5sUs7+PGNv oEL8aUD4cK4vAuFyEdC9 PAwsJ281BbHtzIOg Bmzhw4faz6vipXm5OgRl WSDipgOayKjaVLJ0c2Ac Mu99F1ZlqOypk1JpIjl5 pi54gCWaz3C1oBR1 W6BjRPFxuzhjwKEhtDqo IN7yHYPuuzpgQAAlbC8x ELZsW2o9QrQzRfI8SGug N7HcrgB4FXIzeEHk AHNfkGUVoS6tsfggq6ly hlegBqArDYWkSOm0ZUb9 YZUqfAypEiFcCPH0AoR6 EYX2vGBaiX8zrShx ynumeB5nHyj+YPH5pHKg oGQQQY5gEtvxnNZ+PHRk OEE0dPwpMRcpLHUukW5k HPFxT6e3EyLbSiY7 COmyK4UqtdG3HWBnfWNm VJEdeYMNwH2fgkbhl1hk vwcwSjVzEDBcNBr8FIv0 LWFsaWduOiBsZWZ0 OgI9YWJ0kMTjzZ7ocWll vridfF0vAai+QmlydGgg WRW3YGm9J9RrAct7ERSp cQopKO2coRZiRDdf Zi4beEzcmDhyMV4uSWHg inxit109QsRru1iuTWFw pFCpZLmaSXW2D28pq0S5 VHTsVMAnNAW0iGN5 xW4gbSbhzbkuvLBzeKsq ufFsoWxoIZbzDSuoU200 NMHcwXhoVcMqOYg7F1Xh Qlz8JXBtzCftXN7j lVXcKLcfOn4swLgwyXzx LY5wWNHvqrsbf967SaHa u0yrLWJivLWeMPsoGVE1 O77kc1S4EQBeOTUe UZX0lZF6gT6hjLyvmbjv bGVmdDsgdmVydGljYWwt IBtyS530LPGvoDrpRxUf uJu2Z3IoSpl0NOMx dTdlRX1tbQRvRCxsTr0h lHsxdEygUZ0bBUEzliky s543GqZwm4fvWUMhwGDg CFqaPCD0M21dv7U0 HHNiLSGrZLL2oZW5hT1f bGlnbjogbGVmdDsgdmVy dIbbFFnyPLdhQ459JOUg cDsnPlBhdGllbnQg KNkoQVa5I1EdNbygwUL+ RH90KMXaIY55pREaqWWl v0nhkBg2ZfNsLOPrWUH4 jSlbKBxzq9BcXZPf C67onQDnq2I6JHDcvBor yPHlJwLcjJZ5qM7mSZvv xyvjl1ibuwrzMmjvj0dg oo41hK86M39bNZon ZHRoPSIzMCUiIHZhbGln yg3baK3cYe6+PGNvbCB3 mLX6aY3tCHEkQsA9TZpc D287XaAupMAgZbua w8asn7tdyIa5NjZ2EVMk ewWhuGrwRUJ0z3OeKx93 V27bGQspDPYiDEOeNHNm FYJdrEfmsg6zeC5p Ii8+QOFcfBM9eSX4aX1x RvFpBwW1KKfeV241XtEe cKYsQiwqH41cM0EzjJA+ WQOfQmd6YHVbhRre LI8aqRRiWVyiZd3pZUP5 NuFtHxNvWRxiE9YyDWQd ykmdaetsqAZ0QFZmZVGa fT24Un2tbAkjWFPo nJYPeY1ydness2msflln AbFbRJDsKJj8PZb5NFKi qMqoKcGpBSZ7NoQ4AYA6 lWFauM1biOeskqkr wH6uH5WzZQCtcbvmHz92 pH7bCjTiOwS1ZXunBef+ D0TQMbjgDI2JX2gEMYgd SzwvdGQ+PHRkIHN0 zZjlFUwdKXIqgN9sBPTm D0u4AwOyTxH3TLgxN3Tz KOVmffepOi45iG9tPoLt VvH7PVfxZ4PgcuD4 ZJLjxFGaDJioIAF4E41n w3K6HKOjDUHhCBC1hIV5 aI1isGmsqocrlYFwkRva dmVydGljYWwtYWxp B208MEOufPyrRmDgCcH5 VhQ3GdT7K1AbGeu0AKPi mFpnTM8coAQpUOesIn9y nEqxnDqwRQ1pFHAh xsklVSBnvV1bJBYioVUt wDsrGJ3zCUYeolzfm283 AlTcHWY0FYNffOXxC2Rc wI9yOpFuPRIaYTQh R3HurJUnUXijM554GZki PcL9PLDhyrFaE0ExKRFm nCtxTkR0m5K8Yi87QBRX ZWFyczwvdGQ+PHRk MXR0eOvmARsaRCGddA2y OEUuT3b2OkQwGrJ5NNhh V0LqUSKuebhzVh26wN0m NpUhAiA7AEryO5Kp ftZ8XZJmpUQxYNveSXI8 M06lm7S8TUCgHWQdOXW6 xIU1oH2ipKijnrtlcEJi dDsgdmVydGljYWwt DHwcY080GVTqwOyeLd6C NRM8B1KkIiu0NPOxiLhi QG6zzEIxFVvlAc0iiDks rTmrXQ5bMMIdpkut EYMipZ3mAVNdhXDogMoe SQ4nLHYwpolaf364WwIp TOL5RANrxMWkI2QnxZ5j ZcJmNGUePDExU7Km sUAaBOgjS282DJelXbK8 TAKkqtWoE0GzFQIcvZvd IhW5u5A5Tl7TCIgfdSL+ NN54aa43G9QsDyhu Rns8BLJtOOH7mKC5kL5t OOEtSZcpv8N2tIG8D3Xg dvMdfo9oy7jhCWCtZMjg R21tbKNti9J8KREl wLG6BJOvnKumGeIwlT46 Oyc+TOFyvTtqn0SkFlbs j5lhz8uzrAw2ChJjJCHw rrAmeTgxVDX5q2Jk Qv68V68aAEbiRNYsBFVv VAHcHWXfnSyboi7hyX1u Ii8+CQOjjEW7eKQ1iK0i WwHiUhN8TRnsS171 UdQrwYQpPkzcm1sbm3du yGw8YwEhBCYtxiKkoYfv EGI9m7WpIc58C0WldZry x0VyJcc6we70cWZi k8Q8hJL5M3YxYYJlkuvv vCSatQagDA5zIQAcxbyu CDVlmJ7eCKDgX3m5QhBf KgR9HHlxV6PqpeY6 QGTdiBXqGJRnhACWaA4h scyxr6ahowbjCgOcRKYj MLn0PIz5AQHglKnbAwJu IWL5QxR1QIY4qPLf gX1nzVqtnckjxE0lLkr+ XVz4n4gxwYLkTB1wkTC3 KJ72WG73lEEgc0G5qEG1 G5BvKAJfegnataej sSF0MWKiAGXagZ35Mf4n fQsvEn3aIFBkMUO3EEMn rOUzO0FmkO9iQmDxBSDm QYHpR8AtnIYxLXmt P261SYnuXsD5ZYKapzAb X8UeXZYxmYkaRhS4y1M2 Wc8XNX81FR02SW44yDJx n3O9rIE3S8DdXLOq emvxmhmhhWO5UDPfGQOf yO85Iw4aeXfaHr8zTFNp EER3ISQjbMRvR1CbsE3d WfBaDFBiFCPuF4Ur lLHgVVhnT265KEzcXpK0 VPParsHdI4NxHKVnbCet FnT5f9I1Wd6GKb91HE74 HW38sBSqj4I0oGW8 U2UoUGNtkusrhtpeyWX4 RISwKPYymH78Pv7rxPdc Kf4sZLEtHIB9MKYvbRTg J6RsjI1aIiGwGTLd SEUbR3GyeRDcPIptW901 FYsqEmK3RALnaqRtI1Qj NRTbfZudAqZ4m8F8Pz9L QIdaaci3F5NqRyrg dHI+UA07JYMvCD49uVJs aTMjd6askEs7XfJxPDRt WFK1jFqlIXpnd0YeSGNy K45ulLAfq2Z4TILe bGx (more content not included)... [facility] Coding Summary HTMLBase 64 DmfghdnkCAa0oDr+PGhl YWQ+CB1CFAOwY07hmYUe dN0zH5ZFLGpKCzajKFMW TXqQIeNdhmKsJJ5mjZTl ZXJu IC8+PT7rKNOxHmbtbTGl m5O4bUS1T49rmj0rCPvs uDZ4REHtFbSujpmpp0fl dRq8ABpcKioqFlAe HFYmjQ80HSW6lR23Kp89 nJMsqHLxv5bimKg3ImJq PLMgGUD0pPqvFCtcm2Tu NGWnY51yxIGzm3W8 IGNvbGxhcHNlOyBlbXB0 dW8kAYgtvmyun6tpwpwl Rpb8fl24kCGvv5X7sFN4 W9OkjlX3AFFwsXVx GcjewLVMaH5fzgxen2ux oyyfKsLlKINqAQg5QIr7 RCVykIxwIpEdOP87RQP7 HXOalcSiE8HzCNQt xLovFoS1k4K9Gs5ES6JG RhhxL0MTJDJVIUfbnZN+ QU09dr55S4MiAbxmFjm6 RNUfIFD8cQF9tT6f SSOcEKsgt0P6nTQ5E4Pv vcVqne6cw9ueSPTvYNcq E66lfNQut6N3XUCneYK7 PLBeoJoiTcBreE80 Oyc+AJTuoSulp3WvCyuq o2ymv9qyaBt9UhbzEASv hfCiyFnhYFQ4y4QkZx4j WTSmcNN7bAN3uW1t AiAvQtX3NOyuL994AnOq jLVqYnozY08kH6DtuIY+ EYCfZsx1UIVmuUbgEV7h C3KyTBEevmcjnOFu zCfiEK8nYDQbmankEPBo yE8dFRZpU7w4JxOjRtQ8 LXurJ1UdLHAtmtghIu67 jZ6iIcNsQrI7VCeh Z2RqknH5EXDqiBAtCMcm NTE8E38sq4V0OSAmSKNx LUW8qNX6fM3zxEjmmwjb bGVmdDsgdmVydGlj YNxzODqsZ143GCHnrBqc PkNvZGluZyBEYXRlOiAg MDUvMTcvMjAyNDwvdGQ+ PVYtQXH5qQygTGGx wJPwBVmfJb6jwSqciHua CQ9nDQQfbvccAURviV0m CSNewVUrpXuqZN7pBUJw bkbta600ClObQDY1 RXNkcQFxR0ZoeW7cKbCu CFQpFIJmA2EonIQvUZec H033VJukQbN9OZGchiPk L2OkGDWqcObyHlW4 t6M3Qd2Gc2EjhtlwV0Ei hUNqHmKzUianYKs4B0Gz PjwvdHI+JE55RLOpLW27 EFm8WQA7vLfxYJwj GZDhW7MpqE6aLlEaHWWu ZGRkOyc+PHRhYmxlIHdp ZHRoPScxMDAlJyBzdHls YL9bKm5fSZTaLMTr jFzdlBKdTtWds8lpVHFg ODmqYO0hdEjxS2OuuRW6 JDNfp9e1Lj72R18uQ8Bu dXA+GRCuoDR3gZD7 bT6dWwUgOnG0KSlhX620 RsXnwAGsJcfvh3kto7re lQn6NmH4XYMkhuVhdApx RDX9v4XfSi88J16l IHdpZHRoPSIxNSUiIHZh sNetau6wiT4pEn7+PGNv dHK6wTA4yZ6gVoGvUaE7 VCyoQ015MeXbqIWs Roars2qzt8hddMz4AdZt GRQbihRujBzbEVO6d5Fy Bp42H0RdzUaiz4QjDjx0 qq05dAVre2I9qLR7 K1KiPPZwbgejaSPqeJui DI2fWFTrryydEDIydH8m LPJiB5v6DfYpXsX0ECeh T3IydtJ4RGOhjBMa NMNfzXSFtN5itqhtj1cv uxogOaFtXLYyHMe8GLx2 DXVtyLwoMyIjGNY9MhU6 DJN2uRCofM6gmSnf sutueH4fTvn+CZV6yVJp vXGQBI8iZpobkUR+PHRk ZXO2eHjhHSkbJQJjeU3m XWSmI1v8AaQcWiS7 IWkpA5PxffX7IUJfbTFq WVHjoAUOeI7jknlko6br qaoaApMnBSGqCLw5AFu3 LWFsaWduOiBsZWZ0 ZpG6IXL6fVQbaQ8tvGux snlieC2jYxq+QmlydGgg RUP1VPm7W8HaLik2JTKp uHdlGE9qbSFxHWsv Hp9fyFkdcMetXS8cCRPz rjhva324LeOod2mnMGRa iWGwSLxpPGT9P91vr2K5 JHObWQDnACZ8eDG9 rA2qhQzlpjqszSJnzCxy kiIkgTpvWTwaGPwsG178 UUBlaPmrLoHtTUk8I3Xq Svw0KYFyzMhvAG8i sGYjZSrxQe2ceKtsmAmb KZ6wWDLrsfrpx579QcHm v2vlXTDtqEYyGRvjFEB3 A87qb3R3HDLlEEBk RRW8nPI4xK8giHblpsyy bGVmdDsgdmVydGljYWwt SGekQ265EJVvoQptNbXh kIc8I8ZgCuo4PZKn rQjqTE3gkPPrCLwiZh9g dLamrCfqLM0nOKBoabxl w275FbEiq9tyVBIsfYPm AMnuHXS4H65qk4G7 GCIgWRDvGCR3sHD0jK5h bGlnbjogbGVmdDsgdmVy uYbnCNceNSwaZ327TQAi cDsnPlBhdGllbnQg BKmjJMo5Q2RjYowmuAI+ HJ71LRLmJN32jFXlaNUm q7dpmSn1WfBcCZZcKOP0 xAaxJEsxd7KaCTFn M78zhTDaw5V3VFTeyIgz eMAqFqEjaLZ0dE8vELpb dhvqs0hkldziEaxzy6gm ji43gG62Q86kJZog ZHRoPSIzMCUiIHZhbGln og9arF0qAo0+PGNvbCB3 pDL1iL2tJNFaHxY1GMps D033DaBnmQTkYjhk y0avp5fckRr4VpK7GTCb njWneFpxIMM4u5ClYf86 R20yQJnoQTUiVWNdCPSu LMCdtDzrqw0kqK4w Ii8+GWFxyGS8mRY9sI8d BeFqVaQ2LLqwX648SzGy gSIyMuotM78lS4QvsMC+ HJBnMjj9JNVfjFvk LT0ueKVaSMcaNr5vOXM4 PhHyMaQlWXpqV2TxZAAi tipydxshnGC2SYZxYJBs bI18Ny3yaOfoXMQo bOATyO4vnsmdl6qodmsg KnIhXMMsAIu0YMp8OHFq dIvhTcNgMCA1KgB8UFQ2 hHQrrQ4aqBdtkufl yH2tC0ZcIGSjqjyqVb69 hL8gQxGyUyU1JUwbWsb+ N8UWEikiKZ5SY2cCIVqf SzwvdGQ+PHRkIHN0 tMrlMFnnHDExoO2yARRt I2z7ZpXtDdY8VSldE1Ij VNIthglwHs49tP1gQmCy MpI2XCjbG6VkyeK9 VQPgdEHgPVxsULJ6J04q e3Z8CIHfYXLdQGG1bSB7 qC8zwBlzjgnxsUNypObw dmVydGljYWwtYWxp Q347QMWwuQnuQiFuMuD8 WdH3MjH2I4PnTyl4ZBTt aGviSP4pxOYrEQtuEd1b fQsniJhiPE8kLSSf kcpuWRZfwZ7rWDEalFPb tSkuWA1yEESxhcxte134 FvElSID2REEwkKJgF3Lh nA3rRrGiHJGeOBIe Z3JirSDaRIemF688AWgv ZqL8NQLfidHuS1HhHSMr sWhjIhX4h7C5Bp45EBKG ZWFyczwvdGQ+PHRk COS4sIymLGotIHIxrL4m UGEqK8i0QzMqVbJ6PRud E1EwZJTfarytKg17lN5u QmWgPzF5YRmqB7Tg zjS6UACsrAPtNMbuWCR4 K16ab8A0QNXpGNOgKDZ4 gAN7lU1sdFlkqeravEJs dDsgdmVydGljYWwt ALpiW200SBFmbKhuMh1A NUA8P8TbCkz2PORdpEee FM1gmCViATqiPy2tfDko fDrxWX2kUADfchoo TZGbxB9qYIJtlALkkWxi RY5uHDZevtxlu544YaMd VQF5JDKufWFtC2XteO2o NaRjWTUmXTLqN2It gFGsLGauW930PIqhMlH8 BFEqmgExW0JuXJKfzWat PxC1h1L4Ih3KWQkkkTU+ QI97ps54K1ErAzoh Jea7YEPlYJV7qPW6xQ4n HUExNEzuu9H7eXA6R4Gx rvPpvj9jq4juNYTsJGwm D16uhJOzl2M9YMBt uIC6DSLyjVsiXhUjmU79 Oyc+SLJjkVzwy0EeEmhn f7ara0qywAi1PaFsSOJi lqAfgUbvGYR4g6Fs Ma43Z86vTMrqPJUiGGRb TDZgGZJqaVmnty3gvV5c Ii8+XDBuiQC3oGE5hN5z QeAkRtO1VInwQ681 AqAwzIIrByfso8fwt0lf oJp6SaCjIUCpjlPcxHof CAR7n6AuPd27T5XyzNqi t8RxWdr4qe20yIIw v1B8dBE6A6KzGEWwczon cMGxxJooXR8iIOZxwtdw JNXtlY5aTCInH4i6KiJi BoB8HJmcG5CarqS8 OEXjxZTdKIWkcBFRlV8h hihbg2hvvgqrFyJeYGUp WGd5WIh5YLVmrGvxNqBk YCK7SfY2CDC2lXTv yS7msQwqhkhqmX1vCvf+ GKc0m4cpbLGtRT5vhWA7 KJ81TJ92cHZeg1Q9gHM2 Y2OjZPDymjzcphqj hQZ6DYXaWYGksI01To6m fJmiRy8rUXTfZQD6FMLh yDFiO2GtiQ7mIaXrTZPu BGJmM0UnpXYaHJfp O209SXvaZbH0JDDhehLz B8LxZMYsyUyjOnO7v5H5 Dt6OGD67NO73XI55eWXp f3I4pAB1R4SfELFu hfskxnrqkAP4LRCbDUZm qG48Hc8vvZdqFb9lGMVp RGF2UDZjeXJfA8UclQ9w NcVrDIIgGIWlL5Dl fPPaOEyiD231RJmpJjT1 VIAuknKrO5EgFNZwaGwh KdD2d8A7Fn9SRn23HP07 VC55gODrd3T4uTZ7 O6IgETIaxatmcthvcVC4 URIhMVUltT46Ls4uoGsd Hw1dYNCsSCL9JTBckDKh P4XnjL3vPbFbJXUo VHIgU8VjaNLeTSwjJ815 VOpgVlM3SLRvfcAaY9Df ILUuvVukYyZ8q2Y5Nz1G JOccrfx0Q7RnYpwb dHI+PD15SPLwRT99cTAh mAKae1fneMm1HpPsJZBp GDZ9pHotIIxdv9RiXTQh G68gqYIsj8U7HMLk bGx (more content not included)... [facility] Coding Summary HTMLBase 64 GgqepbweXVj8eVj+PGhl YWQ+KJ0EQGBjB79giECa kT8jK5RFFTgMZashRKPM RDyRJeKcmhXgSB5riPIu ZXJu IC8+HO0vLKOfFoodvYYz p9F7lGC6Y96igm7kTVpq rLJ7EZJpRdAowujxd1zi rQp1KPppXeeiWqFw ALTziP21LBB0hJ66Jk76 pNEgjPUwq9hilWy8UqXm BGUkNJZ8sHeeHFuul5Cw LTSwE17qmYIkx2D6 IGNvbGxhcHNlOyBlbXB0 sP4vFBiqjiobn6laceun Aex0tf40yDOxi1Q7oOW7 T2HuuxV0DWNudZLn HfwzfPVRtE3trqoxk7ad aqmaTdYcYKDqIIr3CMb9 VXNffJufRhEkUK74SDR5 ANKlisHrN4YtIMLa lKulMgZ6m0B8Lb9TJ3GV WexzB6QZTARVZIfczJB+ MA95ai08T7IiNwrdOih4 SIHsJAS0lUG6bK9x LIQkHQlek8G0jTV4L6Sh weCovy4zz0dmDHZxTEir Y05cpKOmo1X9QNSsfDJ7 VMIqrHzzUrRogT32 Oyc+GHCkbQtjq3VqQfqm m1kpb6dqjGr8FvrfBTUh ilWptFyaQXT0c3OqRc7d YHXdhMH6hNU3lW7s NtGoSsC1TSejT538BnYw cRDyZkraH93xO4ElxLN+ TMGoIde3NJXkaTcfMD3x C8SaCFObhufxsAWj sJbaVM8bPWIqsrhfBRVt rX6fXOBwH2x6UoHlElW5 ILskZ1TaXRYywniiGs50 eV4hNqAzLtO2HKea P8OdwhJ8YUVtwMZwYXme UEP5V44xl0G1BHFlFUSe TRN9uCL9kA5nyRxbcddn bGVmdDsgdmVydGlj HXdaDJqhJ572QGVzsMez PkNvZGluZyBEYXRlOiAg MDUvMTcvMjAyNDwvdGQ+ OXEwOOX6bTfbDBAb wSLuRPxkCm0xoKivfKug XU7eXDUilxjjJFMhsF1q YCUvfZZjlWpqLS4pDNTm acvnb535RiHnYPD6 EHTfeXYoP7UbqK1kNtTe ZNTjDAJuC3KqiLMaJRwo S744LOhfFiR4HBCrqcTu C4KvKIRvaArhNdM6 f2B3Nh7Ll4XulsxaC7Bk fHSsEzCxNwacUTn6M7Eu PjwvdHI+IM17QBRbHO78 SEr9SNC0sBwwEVet FPEoH8NcwB9pXjZoRGYt ZGRkOyc+PHRhYmxlIHdp ZHRoPScxMDAlJyBzdHls KT1qSr0xUHJsGZDu iOcniYDgXgHjg5pyGMIe IMozQJ0lnWzlH5YrjRJ6 RROov3v1Mu35F94zL0Uy dXA+ORLmuLA9hJU7 jL9vPeXbFfC0SJmxJ470 AvTixZGhPqmvy1xmx2ax vDa7WoU6YOCfbgCrlAsj PDM4m6OrMn24J47j IHdpZHRoPSIxNSUiIHZh cUyxgx0buC9lNn2+PGNv uLO9uOG3pY6xNmJwDmQ9 WWzaV845WuCuuMZe Izplg4lww3qwaKe8QvOx EWOguoNcfDzmDSA5i0Ap Ma23S8FzgBmuc9DyJrs8 ew96iITgc6V8jPP3 I9WsQZXefcaomUJkmKoh PH1hERIgcqvhSGXpfO5p OPRqV0s6GoPpKoZ9KKet E6SmigA5GYHtgZNv CPDooAMPyS3jzpdnm0ch ngftHdWgSNSfZTd1ZSw3 ZGKbmPljGtEfDQS2UnA5 NGG2oMYflP7msUeu qfajhJ3mXgr+JBC5rRKj vAYCMB6uVhafjNE+PHRk HQB1kHutTSanHUOnbR9b GLVtT0p7YbRdBpL7 SYdzR2FmutP8FRYrvMZl RMKhbKVTjX0onzibl5bv zfvnViDvLPHiWBt9WEa5 LWFsaWduOiBsZWZ0 OlZ7SVU5jMUcgD7tjSut okeqrT6zLua+QmlydGgg VNL0ROs0W6IeYhg7QSIr qMqeXY0bbENuGAgl Mj1udKcwqRkbDP4zNJEv evdvs793VyOde4jrBSXy hFAiPNpoJSO7R40ou4T2 PNNmBQPuQBF9tBE8 eP9icXfsxwkiwQGzoRom rlBhhWmlUYbzNUbhF049 PNFfbLcfWiXxVEq5Y0Qs Icu6GHUgpDkdMO5a wUIqHJyeKx0lgDpoxClt OT7wFXFmxefor432QvUk u8dbJPBqnGVlTDaePZW2 E84mq4W4LVQmGBEl ZRU8oDL9yQ3tdBmkiuub bGVmdDsgdmVydGljYWwt NCayS798MHJybSfcEaXq jSp2H6DvGzz1OVZc dSqpTW1baBEoCKwvTg4f xIjyqTsmSV9rYIUioynq w419HgOer1yaPMJmpDRj SZgaKZN7F98bp0M7 HTRhIVGfFGG3lSN8qZ3w bGlnbjogbGVmdDsgdmVy nIvmIBluTNttX728RVGg cDsnPlBhdGllbnQg LUmgNOo1D6HnMmvxfUY+ PF02HRUfAM61uLWrnFZw q1gvbAq3ZlBxTOFbGAI6 kSriKYhtl8UkOJKe D76mkWPzv1B5SQUsjUfn fRIqXsWtlRC4kU5fPDnn csyfe3zjeotuTwljo9oo um55pN25S41rHNcu ZHRoPSIzMCUiIHZhbGln ct1oyO7wXn7+PGNvbCB3 sPE4vP6tEOIiVvD3OYwc W442HxWmmMWoLjza x4xsj2jbwSj1UiD6EPPv hpBafUgbSQG4v8DwLu34 W38dWGmlAONbDQAvLALg EYYhdCvzvx4xnW4o Ii8+VSYuiVR9pZU7hA8w UoDqTpJ5ZFmiX116JjRp wQYeDewqB46qY0JxdMQ+ STFoCky2XGIwgBhe BE2muTIdJKqpXd8xKZD1 PbVmApAiMNqcL0HoRSVu cifqahbjoLA1IQVvQJHt jJ34Ob7ctYdfRFQb sCQSqC3zpqvwd0geuche KuGrUYQjYSk3HGa6JEBu qGupIaRgUAL0BiJ9ITI8 oBAwnK6osBflxwvl wX7fF2FpMNGtqsofTv40 lS8xNfPdNrV0QIvuVcr+ A1QCOtinKZ6NX9qIEMiw SzwvdGQ+PHRkIHN0 dNjcLVjsTGOdpE7zAYDh N6y3FpAoSdI7VIdkE6Ct VFKijfhqHn05sQ4tVtUq LhN5BQnxZ5TfetZ8 HHTvuMQiTYchNAY0P20y a3O7FEQgJEWlTQF6vBQ0 bG2frHcydohoyWYwsStg dmVydGljYWwtYWxp X934EEAwwJyzIlXmJuT3 MzN9TnE3O4XaRys6EVNf fVokQB1reBJwLQqaKk1x gYipzOghNH9fJBKd ywpfVCYlrA8kZZIltOVe rKcjQE4mPCLineazs592 CpNcGUY4WQPuhOLkQ1Ro bC7iJqZbHSSwRZDy K5LywFIdIEboT554VWso StN5BQJrrlNzB9RpYUKl yMscJsU6h3C2El25SBNC ZWFyczwvdGQ+PHRk QUZ8sGiyPDbqJERzaA8r MKKbN8p1HzPwJyC3JHen M7DjDISmfczsHw41tF2g SxVjNqF1WMxxY1Ej gnR7OFAykUQiZWmfXQH2 H38ts7Q9AOUvKVTiVOF0 xMP3vM6ycRqymtqlaREf dDsgdmVydGljYWwt HXyqU818DBQxcMkoMw6M TYU3D4NrXyv5CYByaHdz XT7acIOeZYpeTt5sdMad jCbpNT9mZAZinqzr IQFxwF3ySRCnpPAfvEse IM4oQFQfpcboc810KvBf UUW8MGQyvCQuD4LwiP6y HzFgIIGtDAVuY2Lk qWTtJFuyD043SHlvYiX1 SBJzzgLuE2FkEXDwvOot HwD3b0O7Mf1RCZscyRZ+ ED54nb59D1BtVcua Zlj1TITkPYE7yAU7dQ1l EWVmNAqva9D5nBY8O0Tn geItwa2pu6mnKCCoSFei F38cxOPux7T3NRQa tEZ7IPFwzJpaLqYvdE30 Oyc+CRIyfNaqi9CdLjgh e4edo9tkvKw1ZyVdNDNc zyCbwFhaIFX9t9Ja Lk73S46uURreENZxSQUk RTIzIWMikEqmtf3zfH1f Ii8+XQPorRM5pYX4oK7o TmWyOfC7TGnfA619 IwChnBApBshso4zim2wn pSy8MaQeHLTcjoDnmClh AIJ5s6OsBk60Z8XpoZhf y4XcTvf4mi30kKCe m4X1mKD4Y9MtSPOqldkx sAOscWijEN1uKNZgesdo TXImzF2bGFWsU7z6XvQu XiE3LKtlQ2IagcZ8 GLHobTPaJSIbcXSJjP1y tkjds0mhxpvgSvLyHBBu MNi8XZa9FRCxyWnmLjZa UBZ8OuR7HSC5aTMt yL8cxExuljkaqM8cYzw+ QYr6a8ibtXVjUP9iyVL6 YV08PG84kVEnn2F1hOT7 K0JkUSNyjgwjoncq sZZ7UXVtAYNgwQ00Pd2f aDtrHb4cOXCcOEW1JWIa rFQgM3MvuF1zBrTxTAJt GWKnG3IryZErEWyf N083QCbwBqC9EQPwvmOr Y1GwENTfzExrRxZ2i6I0 Ta6FVB04HC17CU13yTAa s3W1gSE6Z9WzBXQe gicnwjwyyFQ3MNLtXSBe dB27Pm9ywXhxCd1oHOLz XLO4DCWgyZOzP6VflZ6h VkRiJOJkAAKmP5Ew iXSiMKeuO954AKdoSwF6 SKHhooJcZ1YfEDGwvLyv AtE3y8Y0Ez5LQs72GM74 OC11dOPkf3P2dKC7 P2NeXRCmuesqydvbxCU8 KUAcWLLzmY64Xh2zjTad Iz6aUHDjDKM1XEAesAYe G0AfrM2iFdEaSSVw ROLgD0MdiWJhZWaiB341 MBynZgE7ROWftjYtC5Mg CSIfnAjtBwN0w5Z3He0Y ALhjfyw2Y5AzXtzj dHI+MM81RQBiIE05tJHf aFTtd4weiOy4FpJuNJTx GOE4fRefCRyys7JcGVAk T84wvLIle3O6PPQn bGx (more content not included)... [facility] Wound Care Noteon 09-16-2023 Wound Care Note [id number][facility] Outside Records [id number] [facility] [id number] [facility] [id number] [facility] 09-09-2023 Wound Care Note [id number]#1 .00[facility] Coding Summaryon 09-07-2023 Coding Summary HTMLBase 64 PatdpbcbASk4kMr+PGhl YWQ+GW7OKHNcA39diJWr lA5gK3MMXSbFMoepUIGQ BUqCEyCxfcPhUL6vpIQj ZXJu IC8+WX2uMOQgHdqxtIRz x3C1cZI5F14mld2kRMpa lYH1HVMsNpUlhtspp4fc qUe5LZpuGwkcExRe NESplW97IJJ1yL38Yc99 wHAqnQXxe1glnFi1CvSk UFLtXEK4kKstZLrxy1Se FUHtF46buDQuz8P6 IGNvbGxhcHNlOyBlbXB0 zL1eUDejvyqjo8hibjop Iaz1no63sAOwc5M5kZW2 X4XhrwO7AEUnwZAd LaqiyTRIsH2wfclxz3ic khreGtWgAGKkEJd2FNs3 IKDjrWzqPzOrJR90HUF8 KUIfdaDhV2CgVFVo iFdwXpX4t9F2Tg4PQ5YF OblwH2AZXWEXQBdtzLY+ RI23px61U4WtWbyeEyl5 ZHLvNNV6bOR7uL4a GYUpBOjjw3G5mNF2M4Us hfRowa6zn0ppTWUgXDip T56qiWAor7D7WWPqvLZ1 TOPubRwcSpQbrC50 Oyc+YNJwhQdkf8QaDnyg r6asd0upcEk2ClipTSWu jcRfvWjmGQT7n2KfKr6o RPGrwBB7oJB9vN0x NiXcWfN7ZOelZ266IaKz zQNlBupsD20sB7KpfLT+ SMAwQax0KKHvpPmfHN3p R6JcMOWhhlvrwXKg vSebDI2pYURfaorjHQJb iE8zUVAdQ5r1SuDlQvJ5 ISrrZ1EwWFJxnzyaXy55 uK8pPdLnXsT7VZwo V5AbhuV5RJKbvCWuXAdp GZY0W01cp5Y2GWDyECSf POM4jWO9rS1ehFhbrwbf bGVmdDsgdmVydGlj OJggVVqnA563CXJfaKls PkNvZGluZyBEYXRlOiAg MDUvMDQvMjAyNDwvdGQ+ FLTpFVN6xApxIDKb eWOaZFcuJv6ozXqwbHzl IC4cPNCvgqpxFJPjiI6f HUYivPKqnGsrHP2iOVGu rwnje743WsZgETL3 IMCybZSnI9NybD5yNsOc ZHMyTUOlE5LxcKCfIQte D054TMcdFpK2BLKqtpGt J5DvXBUrwVxmRmS1 l8V1Ma7Fu4LvzpvrP1Tn yEHeZeWyUbepPLd2U4Vq PjwvdHI+UR27LADgXN32 YCj9EMR1nUdfCDfb MQAlN6GllR6cAbKjIFQl ZGRkOyc+PHRhYmxlIHdp ZHRoPScxMDAlJyBzdHls MI0aVv0vEOXoEMTs nIlprBOvUlNva2plQYKn WTzcPI1dwKzmV3TxnUH8 MJUdb8q8Ln35V51hR7Ik dXA+EEZdqCU8aEB8 uQ2jTaDgMdB8XGlqF484 HbDcpSJyIrtxw6zql8mg fAm4EuK9JCQiamOqnYrv VJX2u6NbOl08Z35h IHdpZHRoPSIxNSUiIHZh tAstjm0lhH4bXj4+PGNv iIJ6hKW5uC9sPpEsAqN9 THysT237PaFdeFOo Wotck7ogj7zrvCy7NcFa SEExjqYnoClxBLQ7f9Ot Wa20K5DohLapm4NuJcy0 qh54iYMnl4W6lMV1 H4VdECFbejtyfZErbNwu GR9nAEKvhujaWTGrkR0p PNMmI2g0NjIdWbQ9TWih D6AqkhB3HGJioFBt GYBsgQWIuB3bpobnk6ha glmlAvLzGFLiGEo1QFz7 STZurXnlFhIpZVM2VoC6 UHC8oNXabZ4wnJsx ohrcdZ9tXlo+YKT2kBRk yXPUDL5iRzneoHN+PHRk VKA0wYeqDPrkXNLubE3y PFEuW2o3SsDhKvH1 FAbmS7BymnG1XQYqyYZw VIWwgVXBnX9xwjfjn9ac sppqFdZoLEGmSQd6CCg7 LWFsaWduOiBsZWZ0 GiB7BMZ4xNDisZ6ywHgh vngtsT8lTwv+QmlydGgg OJM2DFw5Q4XfZiv3UXCq pDvxEG8jqXAkFLnl Pm7fyYymmAvpBZ7mNLEk hbxht338QuZvt5vmGVCm pMMpWHnnOWX8L28oh7D4 IEIaKEOuYKS2yUQ2 jN6wfFlgzaarqZAeiSzv xkCtlZhcCHveGSzzV616 SZJiwLouDeUyYQq3S4Wj Svc8ARJbwMamLI6w rYJcFRyxNe3fsXozzTmo RT4jVWOaimave093ToPr z8pyTLTvpNZuZFvhJSL5 A86va8G8IMKyKCQu COX0oJI1qV9fyLlegtxe bGVmdDsgdmVydGljYWwt TOihI029UXNfeDfpPdRm sLh2S4WgYka1ZHZz aMzzPQ4gjYJaHQlyJz1n hRjmaAcnII1uKPLsgabf q776XxMmn7skLXBubHEl PPycGOZ8C31ju4C1 FTQzGUEvKEC2bIH8hV4e bGlnbjogbGVmdDsgdmVy zFbfLJjlKIcdU098TKQr cDsnPlBhdGllbnQg ZPjdGGe4Q9YrEleluFX+ IS84ALTvTI07uFRivFJc v9eyhIu1KiHyYPIbFAT5 kItzKIkqa3CxRNKm R42fnZPkh2C2UFFgxIok dNEcJuIjqAR6kB5eQUfx ljiqs6bfljfqQzafd3nq nj05jN00C18qDRvx ZHRoPSIzMCUiIHZhbGln tl2mpS0nCf8+PGNvbCB3 pOW1eE9nMMOdQkO4EFiw C291YpTkmAXxGoth w2jij3dfvZl2QeI9LBXb ruFbfRviCRK2o2PhLu51 L14qHNuaSWRpIKWuCKSw YPGjqNhclv8htN5v Ii8+ZMCbeAZ5fNZ9uU0n WjEtPtO5HQfvP672KxAe sJTlDunfI47zJ9BepSR+ QVUwZvp7ZQVdfTkr MZ9ldRCoRPujNv6rHMZ8 PhEcOnLjSZcnL1NaWKQe mtcdlewnvQT6RJVpQPKe fV68Ni9ooKmeQMCf rLYTmN7popkxu1vkarfx TfBjUMVnTNi4FOt8ZYEs aCehIbGaYTR5EoA5XJB0 jXUpoD0zzJitpjrh zB1mO5PeZLLswphhBc23 tK1kYyAmPtK9CQqaXgd+ I4AFSbvyYQ1TQ6wKCQcy SzwvdGQ+PHRkIHN0 oTtmQLydXKOlnA9qOXFy H5t6FlFeJdD4ALdwP9Xr RBGtmcvfQr32iK5gOmMx OiS9MFibD1JfkmP7 YEPrqKUtKApjCAO1H88f u1A9LQTtNCFvCEN2eZL7 aJ3hvXdlyzzddPXtyFiu dmVydGljYWwtYWxp K489RIFhcYdrOsBlSjB7 JsE8CsL5Z0CuLwj7KMJi bLwjIB2nvKLnMCogPg6a qKehmBtbFO4oDLLx samkUQRvuW1mUEJnuXYw jGpnOZ0hQQXiuosdv606 RyAyJST3JYShiGBhL1Jh oV0xPePnUZDvOTWc I7PclUXlXKgdR289DAre WyL8VBOgdmWiH1XlRMXh zFjyUvJ4j7O7An95GASD ZWFyczwvdGQ+PHRk UOR7kCtnUKvlCVBuiW8e ZUSkA5i1RtKnNdX8CMrt F1MsGJDxrofrTa19tT0i DxDlZwX2VMinR3Wk spR9UDDhfGUgJYivPMK3 B88gg4H3LKSlWNDaSQK9 iXW3iI3cjYtgdzfmdDDf dDsgdmVydGljYWwt EMqkU674UWIwzFxlEv8X GXW9W2AlEyi8OMEtlKro DZ3reAGxMIxuFb8jaFul qZctEV5hNDLtlyih FTVjyA4nKEEvoCRdaMrp XD3nJKObaemgm423UiJu ATK5XRNlbFClL4UkjW8y MiCxBAJrQYQsS8Rd iGNhOXqzR337HUajIuZ9 WPZvrvZeV8AcSAVelWia UiB6b6I6Vl8GJIkasZQ+ SG13sw69C7ZyGrza Iet2ZYFaJZV3sJE9fK4v LHHqTXaqd2L2rGN7Z4Cp fqLtht0bl9dhLFIyCUrj F34dnXFnh6I6TBGc rOH8VKVorNvzBlCmuM60 Oyc+AELhzOjzc0EdFtze o4otn6wtfRq1XcHvVJLf thYheHclXKG4c1Qn Xf83C84jGSkfENQvHLKz OLSsTSPjpFfkno7bqT7v Ii8+DEGyeTC4hUR1eM8i MgZrKyK9SGjgT062 RnQtsMMbGccqg3vfa7oy hVj3FrAgDCQptnTbeFjy OXK8d7YzTn17T7MltJum b9IgSmc0gm55lULw w2I3kWB1U0JfCBQohtwy mLPyoIiqKW2vTBKfwsgw YZKejU5hRVWhV6m7WxAy LbP5QCkxE9AvwiF3 NTFlvDWkFJGynPOQpP1x aqjus1zgrrwuUwDeZKGv WFr4DLs0PWGzbVlmXgLh MAO6CkF7FJN7wRWe wI8gaHefunryjB3jAvw+ UHr3y0dhdBOxNK4tmCP8 RW68DQ47gLXnv4F0rRE5 S2UmPFYgtivmqkqs kEV9XAJsOUXqtA83Qq4p qYfcNx1hKKClFSB2GZEb hAYrO2AjrY6dTmVvKZVa AVLyE8JfySLqAUup X725FRyyXbM6MJUdzaWs I6JbKKWroRzlWqX4s9T2 Bn7ZOK32JY44LK13kKHj i4Z4pVC8A7XuQGTg sswzdvipsVA3DTFeTNSz uQ78Ht4onTloCl1bAOCp TCJ7OGRoxBWtR9HobC7p SmNuKTHgAPAcN2Yy vFZoYLaoA508ZKdgMbF6 SZTeqsUxO7FmFIUuiFpz IrG1f0C0Qn2IEf18NJ20 CG14gSSpm8Y7kJJ5 E4DdZMHatatvoxcydTF4 KSHgPHUcuX20Ju1jwMqi Ec8kYGEmLRV7SWCznSSi Q8FufY0iRvIcIJRy DVQtA7YubFPmQLpxY075 DSlpHdY3ULObuzXuI4Io VNAdlEqrLsI7v9L2Wt7L EUxudaf6K8EcIrgr dHI+VS17CZPsNJ27tJHq xRZed5inxPs9MsTqDBBb QJJ0lQorHBino8YkLAEz J13qjUFht3B5QGOc bGx (more content not included)... [facility] Coding Summaryon 09-03-2023 Coding Summary HTMLBase 64 PntrqushMHl9nUv+PGhl YWQ+NW6XORPfV23nnNWo kJ6xF2SNVXhQMltnUVVW LXiZLsIineUfGH5hsGPj ZXJu IC8+YN3cMNJuUjkfdCCr f0T3yQB5B04qyc7zEOey iAB9XGRzCcUmehpwg7im zFa5XScfWkgqMjWv YNXgeN75YTX9pW62Bv19 oFSaaMBwu1ldjFf0NkRh VBRxQOT9kMfnBAkgx6Op FGSvS65hiMLld3E6 IGNvbGxhcHNlOyBlbXB0 uH3nABsqkwhzc0cqalbv Hvr3zz70uHBco6E8zLT6 M2SjeaF3DIUsrQLb RnqzoYUCnA0kbxuhs2xw vjjbEqQyJAXqUTp1IQm5 EDRfdGevPuArUK83DWN8 VMYnhfQlK7SgZYOb uZezKsQ0z3O5Ru3FB8AC IbanS7XULMMAKMjgbNB+ QL80ow10R1DbBcqfRok6 NYSmBRZ3uIL4vJ3g BGYhFNomb8T8wMV5V8Rs hpKram7rz9beEHNjCYxi T23uiGMel7D3KFVhsVX8 PFIreYvvVqSzzE17 Oyc+SMGaqPcvl0IkWnlt j9zat5kphSh2NkdyGFKp kzSxnNmlEEO4n7QwYy5w PIAztFJ8rCB5tU8t QcFgKfO3SIniI412DdUm gFOfHbywC88yZ4UccEM+ MQRlMxp6LINydWpeDU6b X2SpNISwroroeYUr rYntKQ6mOSXskxxoCPVo tU1dSLRxC3q6ZjQmKoP1 RBigN7BpGXBuzrxvVf47 vU7cYiXqOuO6RRjm W7WoktI5CEJbpOEbQWoi BVX5D06cg0K6JWYuNDUi WPF4sVQ2dY3tmHlyihzb bGVmdDsgdmVydGlj XMurQJyqE415QCIfbGzs PkNvZGluZyBEYXRlOiAg MDQvMzAvMjAyNDwvdGQ+ HVKzAXD8mIyyDRXd wNWbVQimOb4axXbbsMyh EU9vHUYdjkmsBXIgqN6s QIPyaMOwzZupVS0fCXAb ysguj894NuBdUEU5 AQBnhBQyH5SmmZ6xHvFe PHOpJLZwC9ZsuFYmXQnh T143XKnwWkN8VQZaioXk Q9IsXBRwuHqnIxM7 o2X1Ni0Yb5KprpbuT4Wh mXBzLsYjSugyFDb7G0Ro PjwvdHI+VN28HXBoFB56 IGb5XQB6kHjbCCnk QEXoA1JunY6pJgYtQFGy ZGRkOyc+PHRhYmxlIHdp ZHRoPScxMDAlJyBzdHls SK1vZe7nIKQuMCZg sIrbqURlUqLce8qqFKAh ZBgaGM4maGezX8MphPR2 GLPaf5e3Ws68A45wK3Wm dXA+PDKyqMZ1eQV4 oV9hEjUzZwY1SWmrP329 MaVjiFZfSafjh3rmw4sy eRn1QjW9NCEqeeJlvZuk KSP6z8UkSg66J68q IHdpZHRoPSIxNSUiIHZh iWrred3nbF5sPl6+PGNv kEC1eMX0hQ6qLfGpIwW4 TQmdE554TvHqeLTh Vpwhk2rrd2ntpLk5PwMj AXVrdeZqhOreZPI3a7Gt Gc56T4QfsJvcg4HsAws2 xd82bSNqf3L9fTH0 R5SfTGTdmuunvKAhrCvz BJ7fFSZcwtpiMVDbfY6f KBTgJ2h3ZbRwIoH9GHqc C3QflxO5WJQzuVKy AIAmzRJHzV6mxyenc8rv khocOwSlJQFsKBg9HHt4 KXRjsHjiDoIlMLD0AcL5 EWE9vZEkmN5hzAbi udtvaO2iHhd+XTE4aUWt wHHEJJ0iKmgvjOB+PHRk VJH4zJqhPIbvOVEtmB2n EJEpN0m1SdDuKmG9 MZauR5MaibX8OVHilFXs CDXupBCVoX9xteobv7nk ktnaEhUgYWVdWZe4HEd4 LWFsaWduOiBsZWZ0 UeO3XMT2fCRwfK2kuNyp nxmrfE1pEzl+QmlydGgg KHC9JYa0O9NoOid1BQVl kLcvGE4duMQdBMlp Be3mjUhbvRcgZA6pVZIb xctoz775FdJpb7chMHVc aPJfGIvfUTK1R35yb7Q1 NNQzUJRjDET2vCK5 tC9muUvykotadCVnlRse vbQshVmaNAogNVxnZ515 LNTanFlfKmQoWIo7X0Cc Pdm5RZAjfRgsZS3k oZCoHMrpJi1doMpxzCtj IT4nZMKfpeebo165YeNb b9qqYGKukHKeRTtdOCG9 M56yo4M2JQUtWZDm RVI8xHW6mG0zzLynzduo bGVmdDsgdmVydGljYWwt XBdvZ393BQSyqWrbRsZv rJy2I4GpImh0GPVi aBoeOQ1doELjBTxrJg2z cOimeScrGK1cONUpgxgs b577YyNlo2zxIVQrpACb GCxaORD6W74rr6H5 VCLsYJGrMKM8vPK5iN5h bGlnbjogbGVmdDsgdmVy gFdgDQajPQytK978YUWv cDsnPlBhdGllbnQg VIhiSRo0Z1JmSznupHA+ NW59LTLkQS44dVEleLLq a6hqcDv9AaNeTGLxEKE3 sRmsFWbyn6ZnXNEv C14foZFzo4M1RMWleQee sKDuCoOmgWJ4bN9iZUun xqsoi0uczgrmJwimf2vw zi43lJ01K55xWBrt ZHRoPSIzMCUiIHZhbGln ub1pfO5hPt1+PGNvbCB3 rZH0yK3gOCTtQhW9RGkc O539KuLknZOjXlkh d2hku0tyxCe4LcV6KNGh myGoxXhbSAC4t7BbOh88 A89eSFqoAQVdFNZlNSWs BIGegUwncz8efE9y Ii8+GDWbgPK5tOU1wA1l UlNoLoV7FQisG914UlDx kOUmIquiE71dX0HupUJ+ XUCuKnc3JHHilYwm DJ7ewMCrAZanDz3jLBQ4 AqSkCuRfQUnwO5RdCWAp beayyozwiKB9KFZbXOCn lW57Qb2ebNzdWXBt jIFKuN7vdbsyy7lmscox LqTpDJSjDOh9TDj6CXXr sJnuRlKmRYD2QwF9LCE6 eASgnD2gkGtegxfp sL8nN8VaNKXgysjlUt92 fI4gJzVsMpJ4SGntMws+ J7OKImyrAI2SF5zCPMaz SzwvdGQ+PHRkIHN0 pPwlFTqbUOFtuH1zYZBu D9f7MwGzJxE8TBvkP3Yz ZILxujtoCg77bC4dTkYo YhN7KSesU5DkbzP1 GERljLQlRHiwNGG9B18k z8H0ZSTcTNCaIPC1iNE7 zX4bhMpppycviLEmsRmq dmVydGljYWwtYWxp O039YWIktXblRjQfZqQ2 CbD9EoT0A4QyYjk2OWHr zXhlCC9ayWVmFHpwJp7y dPgvaHqyRX0aLAMq ygjaQJKhyQ0lSPZzoNBh nUloXQ0aXEWgzzmdr441 IbJbACA5MFFilZTaG6Xw yZ8sFtReDJYdOPXh O8EraSTvZZhxI138BAta XtA5DGXtldQlX3XeMHTl jPezRpP9c8I1Wu66TVYV ZWFyczwvdGQ+PHRk LZV8vHnkCLnnZNCmrR1u VARnM0h2NoXpAmE2QLql B9IwSIJtwhzcBu73lC3f WmErOsV7OGwiS1Bd uvC6GDMotEHnJStoMAG1 P79mc7O5JFGgAVOjFYK2 jVN0dO4piYyqyrsflKIc dDsgdmVydGljYWwt JUgwK557QKNjvRxtKp9O YUQ0T3UwIza3QRRckXzg IJ5jnILoZYjyMy2goNxa gCfbAW9oVQLcqayw GQEuiW7lVVEdaNBgjGsz KJ7vJPNfolrwk019IsTe SZM4PHKqoRKoK4ZquL8n YcHzLCWcRQOdN8Cz eRHnOSxfC477HZabYdO3 KHYqqxAhR3HwBSLmfDbs YxQ2d6R6Sk6PVRzfcQG+ UZ53cz14Q1LlQpiq Gbv2KMMkIJH4yBE5vT5w WRKmLJzva0V0rFQ3J3Az myJxtl3kb9fhNBEzJPqq P31bxSZnp6A8YAWw aOC6NXSwzJscKnByyV67 Oyc+SSDgcUrqc7NmDjqx s8fqa1gbcHz3DzLvCNCs xrPkpEohUFY6m1Og Eg93O20iTSrtCWIaPBDt YJWaGAHbvBhcmf9umQ0w Ii8+EETdgHN7dIM8tS8k NqYgHvC4YWjoI215 TsGcxYFpGhlkm6qaz2kq xTu9HvByDJZdxzVgkApe GIY8n3IdQv15E1OoiTgn j1PySll4rx08oKQw c5R4wCC2W6WaGXGepqfh sGAytYymFU3rQXPjjrzw SPFykU9dPJPbL2v8SwGp WnL2LWyfJ4NvorK4 YFVofVFeCYHfiXYCyI9i jnxdh9pkyaqySfXvREIb BIc5OPe6NOWepIvlLwOc BOE8CiW8ECR4wWYe sC7nmWkhglfygX9nPcm+ DPh6x8zaqGBmBL6emWN0 TL04WN06cDIxw9H0tCJ4 O3KcHHHjyuargjdx iEW3KUJsBJTyoC52Dc0u kTjcKo9bMJGhYZR1WHOd bWUaS3SfsG9iJtQuGQQr XGKxT6JmjEMqHMnn I959SYqfDdS4BCCqupPu W3KjWXZeiJtnCtQ6a3K6 Cu6SXP22KK24KS67nIPb s3Q0fFP7O3BrNSQv xtxtnunjeJQ1OIQuHTLn sB69Sv5duZlmNy7bHMVc KXM3WCAznKEmI0DgiL1m NkDgKDDmHCXlR4On sEAtBAlnA291OYgmJqB9 FCVvnnTxN6ExZWMbnOmp XzN3l7T1En1AJe81PL27 PN68eELfs5W7wGW6 N5YgDPBovucznhngbBQ5 MLUoTHKnmT33Vd5xbLlu Fz4eQWOzBSX7ZNTreEQu J5YfkM0kRmZdBJQl CBEeC6EpkPNdXLsqI741 MGqxCqJ3CAUbcyIaK0Pt NRWgnWqgMuX5q3F5Pb2M GJotibf3T0EiBkba dHI+RJ64PXYxUS16hMTc eSBaq6qhmOz9AuQnKVOw HIQ0rXukBDlez1IoJWLr D57rxULtz1B7HZNu bGx (more content not included)... [facility] Wound Care Noteon 09-02-2023 Wound Care Note [id number]. [id number] [facility] Coding Summaryon 08-30-2023 Coding Summary HTMLBase 64 NxtwgryrVZv1hMw+PGhl YWQ+VB2MJKWrC49tpKEd cV8sN2AUXRnXExjbGUTA ZPbJFnDtcbToEI3ihGZb ZXJu IC8+KR7qOVBaDikwyLBg a0Y1qQA0Y13yhb6iFHvl nIK0QWCfRjUoabodc2ne rCh8IHtcVcxrYbXt RDTpdV72ISR6eD22Ns51 pEAxxESdu1xfrWa0VjFe LDQrMTN7vUcfEWvmh8Di EXHwU85dmVWaz8N3 IGNvbGxhcHNlOyBlbXB0 nM8lCUmqzsuss7bpqtrg Agy8dq06kVOyq4A8bFN0 L0ZwtgM0TZWyfVGd KtxfjVLQyR6tdewzv4eu bzicVtEfCKTkNUn5JNp7 ZHCeaYigGjSjHL02FHR7 YBHocbBrG4IxYEIv aGosNiG6m8D7Eb6HS0TK UnxmB8QNPQBDRCmswHH+ AO28fq22E5ZcXcouZpt6 ZPHfVYZ8aTK2yA2y IQGhPFhmv5V9uOD0P4Hn rlSyia2gb7tzCTKuUJra S84jnNNxe4I1MRDhtIO4 RQOhsXmuUwThzD58 Oyc+DWDpcMrsb6UmSwrf l3hdg0htsOn0SgwzHDQt vaEboActHIM3t6RfPs2s ZCTspNP3lOV1fU7b AwNnGdM0FAtiP577ZwNc xWLhIjlvH07uG7HrrXU+ CARbOvd7NNHcjExwLI8z F5WpAPQezdlicJMt nNpmMD5jJLDpkfotCVAq lY6iPQMbS1j8YoZkIpA7 QPzyJ4CcMUCribqcPt94 hE0sAxNhXjD4WFeu H7YluiF8IKCtiBNlOKxf QJF4P97ov7L8ITQzIRFi FAR0nBR8iK0seHxkapqo bGVmdDsgdmVydGlj HSnzEMsvV211UERceEby PkNvZGluZyBEYXRlOiAg MDQvMjYvMjAyNDwvdGQ+ VYKrOUR2qDfqVSPa bUIbPPzcRi6okWioxMsg IZ3bDIErifvbGVPveQ8v XOAuiEBuoJpqYR7uSHDy kzzvr121XbJnEUR7 DCAniCAxK2EobH5aCeWu DTViUODvR9FroPUkAKnq G656BNbmZjT8AJZamaHu I8ObYOEvyLofGrQ5 b4F1Zn0Pc7KdujrmS8Tw gVUtEbDnCvjcDNe5J3Pq PjwvdHI+AW25QEWeXP44 YMr9YBZ0dPxvFXor MRCaY1DgrN6oOzXyDTUh ZGRkOyc+PHRhYmxlIHdp ZHRoPScxMDAlJyBzdHls QD0gJf2oIRTgUQFv mOnrtQXaIpRul3gyAJIk ZDvhEN6ohHalX7ZmqBP7 QLPql6p8Uu03L17lC3Oo dXA+OHQmiIX5rMA7 cP5mLlUhZnU9DPoiA614 AoFdgKKnWvryh4lxj5ch xVl0LcU4IWGmnhNhvYcz THY0z5NlCo52F80s IHdpZHRoPSIxNSUiIHZh kYrjen8psX6cXz9+PGNv jGG6lYP4qT5hWeZeWfL0 LIadH399UvYnnBFl Rpacj0yhg0frnDe6EyCi UXJdskGeuEnpNEF7q9Jq Cf11M8GhqOvkd7XrCzm7 us96fMKsu5I0pNV4 Q7GxUMPgxfirkACbeJmk AA2yIZAkhqkvBZEvqI5g LWLwD0o2ZdTpPyO3VCxs I6GzzwY4OBQzwDHd QNBhyPACzB1lyfptx9xh qsmeCmTkWGJxBCl7FXf5 BQSykCjgOfCaIIB0GxE4 XXU6oDAvsP0kcWww bzrxwW3bIbo+PPM9rTOb cLBLFC6cManzsIE+PHRk LGO3nGqsWGeyJMQklJ4s OVTfO9g3UqLnJmF0 ZIfeG8TefrY9MKQpkWLn XUWovCBVhB6qoxtda6or ghzeIwQcMZXiSVq4VJj4 LWFsaWduOiBsZWZ0 PhW9POM0lQVrmN4vsVyh ymdehK8tSkm+QmlydGgg GAN8MKc6B5NaGbt2URZx uXwyNM8vzODaEDnn Fh4ojAqrtQbcPZ3hZNNf znhja338BjAut5hhXRXh kEPoSZenJXY6P92ji5P1 DOYvWTLdEOS3fSZ8 aS6cxEgpsxtrvOTrgFfw ggDwaGziNMxtRLriZ997 IRJlsJwaTfRkXLd3U9Je Xol4IIEyxNmgDX4f xKIhYHgfDh7qzTzihWyy YD6wBQUxudwbp608ZdJw b4xvJTMzjFFpQVyaBSG1 S00qt2K6ZWFvSNIu XWQ0rNW9rV0feYgucxgq bGVmdDsgdmVydGljYWwt FNgdW620BRSniLzfZtCx rPw0G4SkUjl8JSCl cAqlTO6rlZOfEUaaLr2s aPycdGdlBA4fMPRdzoii k451TcLxi5caBWRqeGLv YOwsGFS8Y52kz1R1 VVBlGFVyMIS7oFT6wU0n bGlnbjogbGVmdDsgdmVy oIvrUGbpBVdkO399YADk cDsnPlBhdGllbnQg DAjaOUj0C6GbYxbwsMT+ CT61EDNyXN14uIRtsHRi z0jigLe7HgKbAIFcPAI4 pAbaQCivp3FyPCKu N00eqKVej7M4LDPkvTxm pZHbSiLjrSL3sD5yHNsp tfmac7wootpgSzjeh1lt nx64tR20P11kSGtu ZHRoPSIzMCUiIHZhbGln oi5fcI1wRd7+PGNvbCB3 bAI7qK0vHOBqTiV9YFhp A262XyAhoULiKiqj n6dph2mngFm4ZiH5XXZp zsBupEleECK3b4MySy82 U89jYCnrHWCnMMUjVOXg LNJiaVslcs9pyF6b Ii8+GOHycQF1nEQ9tI5t ZdGjZqD5MWasK865XsFq gZDrGwiiF13fN3OevHR+ YOBuRmu6VQBxrOdg OI5jmMAlLYqrLc9nTTD9 ZnMaUxAgDBppU6WxKLKo ijxeztoqpZC6KBZgHGJx lQ56Wp9zuJksRDMu fUNAhH4hmgznt8ybsqrf YqWnZJWiHRr8GWf1BWPj lBptWcZvVVN0ZeA6HIQ0 bXCltG7uiNyvieaj sJ1iU8HpCFOrzxxbUo27 gK6vWaRqUbB4CVakYmt+ L9OGXiuaBD4PO2eODZal SzwvdGQ+PHRkIHN0 cEkiGLztTWQtfR4rKFCa L6s2RfAfHyL1PXnxF3Wd LXOtichjVe42jH4gFvRx IjF6HAaxM8UcdjH7 ZLIusFYzAShlEXB8T95l k5N9ESVeEAHdIIJ3yID0 vB1nhAvakjzyuGBmmEcr dmVydGljYWwtYWxp K871WQGvfMkgVaAuEgC2 EdT2MzB0J7MhZyo7PUKq kMabTN5gdPPlXGtqJe2q sVrzbQstRR5pFKUl wziiDRKsuO0jCNYahPAl oCicZP5eWBWpydymp495 JdCgNUG6LHYxtKHgN7Ns nN2zLaMaIEWvZAHg U0DvuKVzALrgH097LUnx UqW6BXWrfmSrR2TyHUGm kDqiGwN2p6G3Gh55SGSS ZWFyczwvdGQ+PHRk WAG9yXgiKMbmMPFpyZ5o VMOvC9z3MhFiDqI6VAwa U9YaVYQtxwlfMi44eP3p ReXpAwU0TFfaV0Dg hmS1WGCxjUTvYUcoILP7 C11hc0E9DHHfRVNcKYQ2 kOU8mT4nrHoqavtdbJHe dDsgdmVydGljYWwt UUybW583IZDvmLbnSh8J HVS2T1FsBsz1BLPkyLmp KC7zjXJdMIlgHg6fySnx zEumDD1wPDPzzduw MLZppB3wGIHhaCRwqXpl UR2gWOKuyxnsn577WfRy VIP0SFNmiOYmP9VuuU8t NuKmNOIhDSTsE3Zg cQCfBLcqT316MQrxRrF4 MUQofoEyV4BrLSCbxFhe BaX1n7M9Bg6OLTxniJD+ KQ72zx69Y5GmFipy Wrb9NQZxGND3oBQ3kD5y ORVaYIrpc9V8wCE9M7Jg jhZapa9lk3jhJQHkACcx P29waVOvj6U8TJTw sXM0OMPhgAhpAmOdlL75 Oyc+VFWyfFqky9OiQjuu r5udj9mvtJh2VwWuVTYb aiDdhHnlJSU9w9Uh Tb91N61yRZhaZAKnCBDj JMEhVWZnnFrbih5qiE6i Ii8+FQHmyXI1eOV1xV8p UaDaYpB4VKtzS165 QpXrwTMzLcmst8kia5vv lPb6YrJcXTJtndGxsTba WRX5j2HdYc82K4RucAja c4IxMcc2fz96eTOm z5L8kHZ1L9NeXLUiqohc uUNquFcwOM7vDHKtqops GPMnqL6pQPCsM5a7NvQv XeF6IAxaT7YcaaR2 XMZpeRRiWMPppKERlS6y mkfzl3yvzuwmUlQlFNKj FBl3FBl2TCZihKyjAtRg VMX9DjN7HIL3rXSw eJ5lyGkhscgivS2zZbx+ UKw3o6phhGXzAY7zkVM6 EK64YP49gJObq1J2nOU5 V0KpTVHpkbgkipnr kSQ9MERfAFVkkQ42Jx8c cSpsGm2xLYPrJFB2OTCz yPZyS8AkcK1nGjUhKEUm NTFnN4RhdVUpWPrt G623IRjwQgK4RXUebgCb A4JyESZclOxsWyN5p4Z5 Bl0VPN71UH26KV40sOMn y6H3gRN9U4VaJZMl wcbwyrmzoEU1NGKgDLSn pI94Db3elGjnPh9pMXUd XJI3YPAwgACxU2HbfT4i DtTtXZGcGSLvY5On eKGvRFywJ237UAdqDxW7 VCMuvyHoX4KbNPQnpZhn WmK2a5D2Jn3ALc82TJ26 PC94pQXau1L7jLW9 G9WyTQVwtvotgmrlvQI3 FIAzULBelM13Cs1htNbr Eg0gQWZkOWI5BRFfiDZq D8JqvQ6rVlVtPTTc IYWwD3IzkQRlFXszX214 KUyrUaQ1UEXdlpMxQ5Dv YWNjhBdsJeA6h0T7Rc5D YJvrdae4J8WxXnwx dHI+FD04CRHgOC60jKCt gPRgt2lzdNq6YxVnTGGd WHG7bVcrNCnid9CjJDYn J06foDUrz6Y7IMZg bGx (more content not included)... [facility] Coding Summary HTMLBase 64 FrhfxmqvQCx0qFw+PGhl YWQ+ES2QTZIeI63zuWIm oO2nS8QFIHkZJyufRLSW TAnEIdZlnvGlAV3zxQQm ZXJu IC8+WL2oEJPdBduvyZRl u3F3vLD5L67hyl4tBBif tGP3QBWxExVjtiioy4xy oYx5JSxvFqyxFmAg ZUPtsX50ZRZ0yW02Ov88 eREroOPxh5ynfSa8PgLh YWNxMVS3aWuxXCtym8Uc NXThY84arCVwz8H2 IGNvbGxhcHNlOyBlbXB0 xQ8nVDroeakto6rbcxdb Yaz5ph38jAArf5S7oEV0 K4UnzhF2GWHppLXy BnrwtLRTlX9oiforr2sn uaglKyMdMIUvDOk6KRk4 JLUkxCcjSgVsTV10LZK8 XAFxkgCdN9PlHFFc mUleAmH4n9J9Zf0FN9ZG DcivB6VWHFYOUSzpfKT+ HT96to72D9DpLvtvQpi2 VNAfUEC7aOJ8wP6p PBUkJZjcp3T7mHK6V0Wk vtAzrf6yt6huAMPiITvd O31hdYSuh5J1BPUmzYQ8 AFPjxKrgLwQppE28 Oyc+LTEynCybj2JcPgrw l8lqa5xccSw2ExnsTOOy kfWhwRrhSXF4k4DsFx4l EWMvaIA8nQU8zE2u JnQjQuX5DPzyY048WsAb gYAhQgrwH79lX5GynKC+ EMDbAxd9MZXvnHpjGM4c T3JqBYLzajntnPYd kMenYD7gMZNlzpkkQBMl iJ8cMUJfL3h0BoLbRdI6 ATmdA3LaSPIrphubIx03 oB8zSbJlLdJ5CBrh Y0UonuS2FKMfuFJbIRfp EXH8M40rj4B5YIKaQSIe VYW8hLL6kR2bdPymwids bGVmdDsgdmVydGlj YMykYYemW745QCNbyRta PkNvZGluZyBEYXRlOiAg MDQvMjYvMjAyNDwvdGQ+ BHFdHCI0mUkrUZVy yWWjYEfwKr7wyHrdqCqx QR6eBWZdtykxEXDylZ8z ERMbnYDqlYojIZ7hGNMf rerwn699OhTxYKG3 TYUmvMOdJ1HleW0qRgYr BPVvKAPdA2AtlXRmSBvy A539SGcoQmU3TYDowxHd G1LxGMWmzHcvIfR0 u9F9Cp6Vq4TruznjZ6Es oEZhZjItFvwdTZr6S3Rt PjwvdHI+DS35WNVtRU71 FZe6LWV4eBmpRVvy QOMcX9AxtL9hJcLrOXQw ZGRkOyc+PHRhYmxlIHdp ZHRoPScxMDAlJyBzdHls BH6zXe3nEKUfSRMt kOuceGAsHnPhj6ytKVMn QHqaPM7syGabA0EioIP3 HUYyp1n3Oo09J60fD2Ph dXA+GGMuaFH1mTV2 xV2yVjFvMaG0OItaR861 AiUroYGyIzuqc0pgn3ae jXz1SqP9NRLfyxDyyLye KFJ0p1JhSp39Z23k IHdpZHRoPSIxNSUiIHZh lYedtq9kbX2cRt0+PGNv yAD0aKT9pN9eDkYrDgV5 JUidM539QjOjxYFt Xblbn3mug6jeqDr4RsCw PJBxkdBksDpgBKX4y7Kh Ji24M8GqrGjnd9XoUxm6 th09fFPga3H1gGV8 O5NjVZLibrgfeONcuZyb SC7aAUQnutamDXBcvB6w MVIdF7s5GvYqQzM2VLvb S6YuusC4TEEppKLf COMwxDYWrS2jnkjvw0ob zactThGsEKRgNGq6HAg7 GLGofKzoRcNsLTF0DjM2 LWS3oZNcfE8wkDlu owlicD4nYqb+YBK8cLOg tSWKDS5bEvmyqWY+PHRk TCB4sGfrVBsaOEUanN7y VRVaR7f1NhNwOfP0 JKwhE4XcdvS8HNLvqDMo GEEgrRGNpQ1wbrvfe9fu irvsWmEtGHNoQMp7LFb3 LWFsaWduOiBsZWZ0 YhK9HDM6yGQxsF5oeMva qwsxeA6pNxj+QmlydGgg JCS7TFd7L7ZoXks8ZWFi sJgyDZ0hcUVcLWhf Xr5kaEqqlVrdHU1hBBNh cabhw488KuXzr9uiKTHy gGKcLBamRBU7W55ix4N0 LUAuNJEwOZH2nJY5 cO8bmLljraslxZMoqGgk qoPgePyvEVxmNTtkY570 FRGwlOsuBeUfFGq2S9Iv Nba2KBCxrEvrWK6k lZJsJCbnRc5rhZehfZaa ZP0mNAIkgspyj527FoSy t7vlJOBcoUCfPQriUEL5 L06ab9Z5KVEwTRNc VNY8xKN7fK3cfKntaipn bGVmdDsgdmVydGljYWwt DJsfV459CDZrnYiiFfTq vRt2Y6ImNsi3GUBu tIoxGK5kiAGiQPkxBr3i gKituIdsVZ7hYSJmcdgf d086HaDkl1ycIYOylWPu IKphGHQ8H52xu3T7 LVMdGPRrOYS0oRA5wH9f bGlnbjogbGVmdDsgdmVy hGukCSepWMsrY766JXGh cDsnPlBhdGllbnQg BMmmDVk0C0OwPxarvAI+ BS08ENUaZD04rXPlhADo r6onwAg7FdUuZIRyJUS7 tBiqPEzdo2SkEPOx F43smAOjs4K6XOBjiBbp eNScPxYcrMO7yZ0nEVfa xrndh9ajbyduQatxo9tj vq89mQ59Z94kELtr ZHRoPSIzMCUiIHZhbGln ku1llM9tQt2+PGNvbCB3 mWH5jW3pYRJaGbJ1LTpz Z946FvBlvEPpTlch c1awq4tebOw0WwW8GGSb thRsiEovMEZ5q6IeOz66 G26uBMfkFJHaBVPbXZPm EEJtvKdkhh5gwJ7h Ii8+SWMplAW8fCL9pQ6b HrIoSxF9XDmaH856KiVp dHKgLurlB49sZ2FasSB+ FQAuVzh4MGUhuKao RR9onMGrDSunZh9nBSS0 MkDpQpHsAIitQ0NsTRBv njigofmwpFJ1ATOnIKWb vS34Uo0hvQezJKQy hRPRiP6acunak2wvqzta IkItJHCtPWo7NPq7USUw tGjqXjTwTTZ4NpN9ZSY8 cNXeeO0lgAyhvmcf lG7zS8KcLZOvoorqQc71 vG4jVjFwLaI7ITzpXwm+ A4AABlqwQQ2IM3eWPPrv SzwvdGQ+PHRkIHN0 fHfvCRxuIPUmfS1iJJCo J8m8PmRvDqF8SFsgN9Nb ABTtqtihVg74tX6qSiGp HvN1QBlbY5RkrrB6 FUKbaQFvQHbkBGL5M08p l1F9CDRcEBPlTTK9rRS6 gL7ohNelvxhktYDrvOhz dmVydGljYWwtYWxp Y761LVTszEvbYeNyDoR6 UsF9TrB9B7HlHfl6LAQk xJxuIL2siPNzWBfqQj4t xXqcdFzhQE6hMEGo fdpgPHNmuC9bCSHbmFKl oTdmBY4bCPGxbiiam097 KxWaDEO5RIPnbKAfI5Br rL6sHtXwUTVrKLLy A0NsjCLtZTnfL819TGlf AwE3SENuowCgZ0NqIBQf jIclHaB3k2Z7Mj23AQFS ZWFyczwvdGQ+PHRk KNO3fZhbUUzeQTWwnB5t OZHxU1k5GnFyToJ5GCye H0MxBRWdejxuAk18aQ0f TjIyFbW5XLfgQ0Ot djL4YJRbfKObBEnzJBX7 Q53mc5E1QKXtCHXoFVN9 qIU4qF5vgCtaombdjYCj dDsgdmVydGljYWwt EHdcM984HLQntQbwBv0A GAS1F1PlJux3SXJrmDqk KY8goPRoNXmtGv0hzXmf eKojSD2aMKHxvczh WQDdtG6aDBItbMLxwUit BL2rOMRxsejoq134NfBx NFQ8JZBnrZKwI6QiuH8r DaBwJKRjDMZwN3Ia gVXrUWnyC783QJtlZdX0 TPVvuuEjY7GfDEBmnPat CmY1k1Z1Le3MSKuvtRR+ OI08vx02Z4ZmCtvn Wqd9RGEyGQG0yXD4sW2k RYPtKOtnx6H9gVW8V5Gv xyVyir7ci5ujVHAlGTet I15ifUAdo0P4RHWr rSY1HYBpwZrqInTtzD46 Oyc+ECIewYhns8WzNtyh w3xvm4ilsQb1RoHyQKOq toQtpMbpFJL1n0Tr Vp36H39iZTxgCZZjQLGn JKRfPVJloQylte7nrR6n Ii8+WYTxgTO9uYN3rJ2c KxFdTfH6NHtmO985 ZvWkmTSgPerlh4rda4ps cJa5MuJdPPAuqnPdgKye IYB9t0CqZp42I0YliQdz g3SrQlc3nh67lUHv v4C4kCQ1C3PzHXKabfyo yYNomYbwPM4fUDVpjhhg XGTurF1rJIKqL5k4NaMk UdM8ZPkuW2OulmZ1 LQRjjCZkHZPrjWOEjL8u jntlo8pvsxyvZlAoJIOg RHo5RIf9OIKpoCeaToSh OSR0XfT5DZD4lBYd fQ8rfZuampthgE3mQqw+ VGg1j1igtMNlVF6epDE2 YE97GM99vIZqf8Q8jGS2 S1KhKVTfbfpwibyn uCE8ELQnWRCrsK67Dt3m jKcvRk5tTFAxPWZ2GDEj gXEhA7EayC9uJdXzXIAv MVVrL1RnoPTqEJbw Z692MAunJxZ2FFLlnhGa A2JxJXEafZfoPwD4n0J9 Yt1ASA70KO79XM89xHZf k1S5nCE0T0SbTRFl fwivvxrnpZT6CSVoZNKw jT14Bt8geMkbIs6kMUQl PHX6FUBuoDTqT4LgoN1b PuZyYWPfVAKnL8Ct ySErUPzvO968MPauGyX2 FEVylnFoU5BwHIDauEnt DxR2r0P7Ts6ZRi86QA23 CP33cPByx9K1bMT1 U2GsKOMxmnjpbqsrjSS1 BLMrBKUbjK32Jk8ruQzr Eu7sRRWwTIA5CTFobAEe K4ZttH1cZzHyCCBl SYVeU9AmuDAkIOliM949 MRtuKqN4ZQRxjgPsR6Qj EEWwmRffKcY2r5B0Sa4B KYfcnbi9O1YwXelv dHI+JR90MZKeYZ06iCGs yRHyi3hvnWs4VgXeCLDb ETK8hTssXJxty0BqYOYu B87zkMIiz4X3OTZa bGx (more content not included)... [facility] Wound Care Noteon 08-26-2023 Wound Care Note [id number]#1. 00OTGTIFF [facility] Coding Summaryon 08-23-2023 Coding Summary HTMLBase 64 NmruyurnPJf1jXu+PGhl YWQ+LL4PHWEoY04ccGUm yA3jS6VNETuKEzljAWOS EKbJAnYpeiCmSU5tmYOm ZXJu IC8+UM8zNZWpTmahmRHo q1K2iUG6H07iwe8cBUtv yDD8HVYiKdEhyukpe7cf nUl0AZlkJirtLmYu VQXgmB85BOV2bY07Pr62 yDIziOKmt3jtiMu6WgHc RMYcIWD0nAkdSKvlj5An UEYzU78khVVcn2V1 IGNvbGxhcHNlOyBlbXB0 lX4kGBsngmaqs7lqlbfv Utd1rf20aWZcc0E5hIZ5 W5MvsnG6ZPSpuMRz TexqmXRSzQ4ohortf0dh kkudMgMuSPSzODm1DBh1 CWBejPwcTzClLS76GLS5 FPEekcMtI9VhFKBx lBecUeY3z1A7Wi8HC4TV JpylR7VLMIDNMWpmtXJ+ XK28kq30H2TbMxwmEfo3 BWCnIFM2pMO6kC8t AVTnIYnco4O8oJA0I5Sz qqRijr3st6hdZDBzWKlj O16jrQDfa8K9GOGniCX9 IZMexFurNjCehF35 Oyc+HJTjvKobm4UbXfns a3lnt3fckBr3XhhlCNGr ahHnkFsxCYT2p7SdAr9n DPXtyDJ3iJE9wA7o LnEkZoD5JSmxL830JlFw sATeFkftP42jO5CwwOD+ AXRkOey4OTKipUyaWL8a U8QiCMAzoopvtGAi uAyaWQ2pTXVjgzhqRPSv aE7qCSHxT9d1OiOlLlB7 MFvgE4GcNEXbfwowZm89 aQ3kHrMcPuI9ZHif C1TankL9BKBveAThOJor KUZ9E04ie1T2BXJqNMTb TFT4rUX5cC7euZoqvqvv bGVmdDsgdmVydGlj GMjtTJczE536TIJdxFli PkNvZGluZyBEYXRlOiAg MDQvMTkvMjAyNDwvdGQ+ BAAyETY3gOtwEHIp dXRcXSwbHn9yaTswbFwc VQ1eWGUikilzPLWzkE4p YBBkyNBzhKmuSU6vSIUv wtywv195VnSsWZF7 HIWvoVLwE0YqsJ8oLnNu PVCnDWMlX8EfoWSyGWnn W264UNalSzC4MDQfelSy D0YkHTWvkHdlWnH5 h6U1Df1Nj4JkpordJ2Pw sBGjOzItGkgcQSk0P9Yb PjwvdHI+GY98AHAgYS73 JHw8HTD0mQvdHLfb KJMiA9CjxQ9iMwHqPADt ZGRkOyc+PHRhYmxlIHdp ZHRoPScxMDAlJyBzdHls EI0wBz9nQZCiPAFw aMjztEIfUsSdm3azKBOf PAlbFC9fmUlfQ5RicHH5 VHAea4f5Wo43A66jH5Qg dXA+NPZfqQF5bPJ6 xO5yIoLxOzD2PPcoL773 CsCnjSOuZfwcg7fly5jo jOd2QjY1YYFsuaQgwMii IAN0d5XkCc67P13d IHdpZHRoPSIxNSUiIHZh fRbpzt5umN1mQh1+PGNv sNP0aEJ7eI6fRgBeBhY0 MApcU936RpAduMOe Ttxhf1jrd8tqmBl1MpQo GQAngbGliFdkMSA3y8Nt Et81I9FsoNfsp7AlEdz5 oq48cYUju4O3xPH7 Y8RdFXBglneulWDgnGyx SN4iNHWkdxgaLQXbuZ6b VPIhT8l5AlKlQaK0QLfj Z7LkbnA3NHPsgPPj RSZpkOLIxP9irzlav7oa tpklTlCoGPWyKEi7TZy2 EOSlzAmiQgHyVMM8KaT6 QNM4xSPrtD8haXfv ddcnyT8bTuf+HCO5yZUg hVHIKZ0aGpxsmEB+PHRk CKP2bGahODzbJBUvxW4d TTZlS0b7HvFkZgD8 HEwoS2EpwtQ8IMSkzCAr SJMvmAIEjM1zznezo9ww gibgZuVcPARmPTs4FVk9 LWFsaWduOiBsZWZ0 DeB5ARG2lGRseD9ikGao ojmetL7fYvr+QmlydGgg VXU7JVo8Y3RdQaf2WPQe qHrxTM6jyNAgEXss Km6sbOtmvHejWW1cGYTi slyij133YxFyv2qrAEKj sYEeAAurURN0P67gx2H6 FGOhPMSjLDW6uTH7 qU3leOlssteydNNliArc qhRnzYehTBjwHDnpI010 UYCazYyaLqYaCCb9V7Uu Wgp3FEZbgGupVE1y aJYfTDwtSi0bgJjvnPaz FT0zZWUwnjupf034KnIf x2vhFMZktHRpKOqfZTL1 G75xv0P0XYGmSXMm LTM8qZJ3xW4wsXnhswle bGVmdDsgdmVydGljYWwt ZXasB251DQVljAypFbSq sRr9C0CvByy4MVVl tNniQX0oyQSsKCutVp1z vKcgaTvkJA9eHTSkoymb y287StWvi1wbMYBlcPSf TRqbXJR6Q61kv4L7 WRSiGTThUBW7rSR9yK5s bGlnbjogbGVmdDsgdmVy fRqrQXdnLHwsV633LWIc cDsnPlBhdGllbnQg EKexNYq3V4MiFmdjhKA+ BD69GYToLD82gTJfcANu s4ygiCb0PaOnRRDyXRL8 xVlvAPlli2ZkXEJa N40twUMfh1H3AERkjJxt uDAaBzObaMC1lI6hXZai ngsct2doprnyUeiwc5lr kp83lU91J25qWGrr ZHRoPSIzMCUiIHZhbGln vj5wsP2bUo7+PGNvbCB3 fBX4jT5eOEEaVjG9LJui J015MtJcaSXlRebd h6ndb5wcpTl1VeO0GEJe yuRerYuuWIX7m3IrPy62 O96vZRqdQDYoIINdLZGt SROszJbkwx9mfZ1v Ii8+JFAiaMS3vAD9lN0q QdBnCqF2HQvbK793MrPf sOGzMvvlL34fM1CalYS+ UCCsWoz2YEBhzChb HM4xdNPvWYkvRf2zUFD8 VuHjCtIcLAxtB7MzWKGt ktcyvrentLB4FFHtCZJs eG25Eg8ztGhmSGNy ySPDbY2weehio7rbeayr MzHtYSLjRHx3IWo4FUGk qYpzFcIqFNZ9BwS6RAA6 gXGjuC0giAaukgap dM7pJ4LxBLOzshghOu83 lL9vKtPbRgF3DOrkRzo+ W6QEXurdYC8ZY4dHOWxi SzwvdGQ+PHRkIHN0 wXbtGUpsMSJicM5dKUFy N0z2NkJgZvP4UYzcC2Ia DRQeohzdLu46yJ8qFoYf VbR6QZglM0OesnQ1 HSWztBXiTPgzAEU8G33t j6E3CSPbGKXbGNZ3uEI0 pC8pvGqhfyirlGAfcMda dmVydGljYWwtYWxp M854IPMwsPfiHpDxMmD1 SnM5YlZ4A4HrRyn6SMTl iSvyRI6lsANvVPohVp0s fZwvdGtuUS1yBYSa lnraGVRzdX2lOHSnyJDa zIlwTG5jTDQwdppzx805 CcVgBIR8YTOhbCRbY8Of xN0sRmMpRVFnYSEa G6DkiGXbFRpnN150QPrv KqS4OZBoftAbJ7MxACOp nEooSiP2v0B2Hq73XEDR ZWFyczwvdGQ+PHRk IKO5vOmyIYmvTBYtyU8q OIGpN5j7ElMcHsF8QJpn C3GrEBXqgogxCj52cW3w OmSeFpB2TNtuP4Yl nvG4UKAkfEOfOEyaVGJ2 U72im3P5MXMnMDFtTRY7 dLW7hA6poDxgtpnmvSKu dDsgdmVydGljYWwt XPzsG029BQEhmHjaYi1X XSP7S9WfRql0YGSvtUrg UK6zbVBoFAoxMt3moJbe tTexRC3gLXHiakfa OJIuxR5nZENrtSVerQcu AI5nILNtngmwp894VsHf PWO7PNZeoUWgR7PfqQ7w EeDaGUWzCVDgA7Kg mGYeQAsjG676UMhfPvE4 MITwjwZcH6BuICZogLnu ZsO5b7F4Yh7IOBitbPK+ CP41qi41O1IgCpqd Tzp9MZCzQCB2vYH0pY8m ROTyZXemq5G4kSR4E6Pg sxQzgk6ct2lkQCSnMTuv R79chWOud9D9FMNn sRT0MMSptXsrDuBagU10 Oyc+JHPseGdem8HtDcss y3zix6xocUe6KvJwFJCo feJxySweJTT3w9Zu Lc98U83dPOelYIHrCKPw FDRqSXIyrIuath4yeL9q Ii8+VLWhcZO0nNV9wK8l UtEdOmX2SHnwV660 LbYcwUIyCwpeb3ylm2dq bUr8PvYtRAQdgqRepGmz HBJ3e1JpNg35S4AgiZzr r0HkYfx9ht94bJKv m2L4yDM2E4SnKWAescih iKQdgBnpBO4nUOUwkzmv QANqsS0jRXQbG9c0ZiCt JmQ1OVtnB9TyaqM1 AVAmhQEeYOQgoTLBgU4e dxruo4qjhjuhOnJiVQNl XTv0ZZa1MEDhvQodTwSj EJL4CwY8LKL6vUMf oI5wkOherqxxzO7sEyh+ ISl3l0jfmRPeZU7ptZM1 RN47VS28hYWss6U8fKH4 B9UzFBKxjysuacda lJM8JQYhPCHtiV14Rb8z gYviDh2eLJRnGUD3ROYp cNRmO2ZfmR6rQlSgZNPo BNTaJ0WnbJKgGKoh P035QTreZrP7QZQfamZw D0BrJDEctNkaHiB9m1W2 Uj1OAM36LJ97BG29kLBy p3H1aWO7K8HhXGEp dwatnxdkpGG2XXKyOSHk cG84Wd2apKkwSr5sKCCa KOJ8TCHkkBQnA3PlsH3r GlSaTKBjJZZrB8Wo mLBjBJmnG477BUelTsZ3 EOBxwgIbI7SvTIPruRfd WaD5o4S2Da6BXt37KE62 FH40vWJas5D4kBO6 J3BgPFTooigjbvmloUR7 NZWbKAEhqL35Gd4duFei Gn7bDRYtFWV6WICguJAf P2SraX5kSxVyHSKe KESkA4BwgFJsECwcA904 GJuaBzL8GSIdvoPjM0Kt GKFszRlnAiQ0w8J6Ny1G ZXxfwwj8V6SyPsxg dHI+QB54OQUoDC39zVTu gKVkc8jsmQb6QkFzKGIq XFM2tOsqPFshh9XpFFYj Z79mnLOvf6M0NRBx bGx (more content not included)... [facility] Wound Care Noteon 08-19-2023 Wound Care Note [id number]#1. 00OTGTIFF [facility] Coding Summaryon 08-17-2023 Coding Summary HTMLBase 64 ScltnahkSKl9iGo+PGhl YWQ+RH2IDRFmD01srHXz zH0cU7UEXBiLEbgvLVKS SKoIWtVzodIwDG0fsLSk ZXJu IC8+KJ6wIXVvBcjotWZj y7M8wFC3W25xmp0gVUtb iHX3XEFwOkTosgkxw9wt aDi1MIpaTzlvXtQx NLZyiW25FJF4lP85Mv71 jOJrjYEbb4bxjWk7BiHt PXHwHMY2kPnfYSclv2Rc OAMnX61egWKuy4X7 IGNvbGxhcHNlOyBlbXB0 rZ8tSIbxqfqwn5kkcuki Uyw4gt23vYWwv8Z1oYY7 S1HhmnO7GJSajFYy WnrmhVGGnW6ngfhqc6jq dwtdDoEdBBWfQJa2XXw3 LMKsoHtlTlXbIS90UGE1 JYJjygUtU2BrXURl aHfuJqW2d8U1Dr3VW9XV QengK6KWYHGYWFrroQC+ KU45di45M5FdFrooHun5 OFBaPRN6xMF3mP0p DEDlPVymh5G3kIQ3G3Wj ntKjgq9cs4qwITIrXBow N58jxLKav1E0KRPihHT0 MBBwzFrwVxMxdI00 Oyc+NEDysVwde5OwMfij a8wmd1mnaWt8HkbeFRMk nzUgvThsHQG4t8DkWb7x WAVzjTA3bBO0zP2o StQyRsO4OToiL260OxOu gJCeMkpmP52kF3CdxHL+ DSWnLfx6PPXngEdwLS9l W0HqXTDdnlqdoAXx dHdcFU8uKTRfwonuGPMh vC8oFUNyL4i0YrXlLoH4 DItmI1ScBEMgwhbhCe10 aI4tWgSyNwB9GPlv D8PjdmP7ACHbjBEtZLrz ALB8C58ab6P1ESTtJAUq NMQ0yZB1wU7ziRuwhgyq bGVmdDsgdmVydGlj SOogHAblM936DGJluRnl PkNvZGluZyBEYXRlOiAg MDQvMTMvMjAyNDwvdGQ+ KZDuXZO0sBxpISXi dMHpFOdjJt0cjPdsiKgo DC7kRJPgatgfOHYajY0x GDLnwCKmxDduSH1dPJLq pfyab427LcQjKPJ6 NWHelWJiP1ZxaX0rPjZx PWZeFABtP8GyqSSvULuu U410KStrCqX8SEPlsmOj Z1GrUFRkjDnoLdO7 d9O0Vg0Ka3BkthkyB7Iy mNApImCpPoloWRv3Y7Zg PjwvdHI+IS92RCGhIG87 NYa1PFN1tSfqZMcs FFMvV5DiwG0fXzRrMBBh ZGRkOyc+PHRhYmxlIHdp ZHRoPScxMDAlJyBzdHls PW1vCo1iIAZvBCQz kRddrGPtUcLwq9jzCQSt PQjxQI2ucIfjD1LvoXV1 LXXmf4t1Hu37X12wF8Ls dXA+REIinHV4cFF1 gH8lOwYdBxB7QMtzZ718 NlMafBIbSqvdj3jgh3ft jRn9XcD1QOOcxzMsyZun BTP1m1DxFp70C18i IHdpZHRoPSIxNSUiIHZh nZmxbv6suJ0bEy0+PGNv hHT7oFW7zW9zPfJdClR0 VHarY049LyAgoBXl Rtllu6cxo0vxsMl6FaEf FJDxivRatHqcWKN9g8Co Bk78D9KsgQqfj3DnQjn6 pu43zUGjg1D6eTJ4 K7HcCBUyuqtiqEWrnEcz FV2gCNRbimenBTYnpY6m YHZcB3d6UdEnWbJ8WVvx K1CtytL4UEDaqZAd PSLqsBYFjV1rqsuhj2no vstdPcVcMZZhJSa6WLo8 QGHfwNmuBjKiOGU2EzC6 QNV6fQXkfE8bcIku cnmbbH5nIjf+RWL9oGYp xWRYTT0gXtlfhOI+PHRk PZO9bDodNYadQXThuH3g KVLjJ6v4QxAvOhZ9 QQpuA9QtqmX6MLYsaKAh XJQgiQGLrY9idazfj4zm uzbvOgGbKENqANl0CGe0 LWFsaWduOiBsZWZ0 BoC0FOE3pYNaiR8srWgp lzcajY0eNjv+QmlydGgg FVZ1QMq8Y3WlKpz3RHRo rPsyDI7luICrPVft Pf6eyAksdWvdWJ4eSLBk rqpsi184JdHlk6fkYPOb vLPmMAcxKVQ9W89pe0T0 HVXaLMCuMUB5zGK3 wR2wyQflakgwrYUrjPzf syQgoJghFXubHHlkU588 LIPsxNbiTiUiOLr6U0Uz Nwz6QBLcwGljJL6v wZXdUBedMc9ypZejpNdo WS9gZNDahxvij468JhDm r0cwDOKtuRFrENjmEIO3 T22zt5H1MHJvJUBx BII0yCV9xY6hdDbzqxtt bGVmdDsgdmVydGljYWwt UUopO954DIVofIcnBqVv lVp4L4FeCgq8ARDa tXiqNZ7rpDRzROcuGm0g iWafuThcBP6rXLUxwdrv b001LqArq5ppVNBwjKRk PDcfILC0D44ut7Z4 FRWfEXOeMZP3vOD0eS4t bGlnbjogbGVmdDsgdmVy vFciQBxnJQzdE622VADe cDsnPlBhdGllbnQg ENiuYFa5C5GpNbwfnRN+ BS03SMKeWM39kQPxrPDa b4bcuFk6SiHtLNFhEJA6 fYzvWNojh3RtZFYa L50kwQZtw6Y3XCLghHsc qKDcBtQknYY0qY8mHAhv wjkkc7lqjwypLhyuy7nf bj85cM12O40zSZxx ZHRoPSIzMCUiIHZhbGln lv9yjX6jRv7+PGNvbCB3 sQS2wA2tWYWeTyE8SRda K037OyFfkFHmZldw v4dij0rcoSs2RvM0PDGj whTvxTaxEBO2o1ZbFl33 P56aUEfuKMUaBDEbEXLb PKYyyBrsgh8dkP7s Ii8+DXViyYN4oSA9iC6x FaIpFnV1VJbxK872DfVu lMFzUssqJ71hQ1OuwNH+ JETzGqy4YDJxfPct NS7cgOEeZMnjPr6vWEP2 NrIrFxAdTSxqE1JqFVFn nwuhscavwJY8SIHiMOFk xE46Ug8sqMrpACDj wBWCmI6hmdypn6iyqoku QdXvBEJpAIr8THk6MNGh wUxyZjYjAVT1QbV8TKY4 dBQahP8wqNbzjuls uD0eZ7TmKHVypenrTh37 hB4vWqNoGoX3DBvzUoq+ A0COCahtHE0HA1mRTJqw SzwvdGQ+PHRkIHN0 uUrkBFkyDPOzaR7jNSUp M2y8XvDuOlU9NAxxX5Tn PYSvtoktWp79wB9uUgNg BvY7YDgcC9FhpeE5 HXYbkAEnPWjzIDP1J72i f6G2FYYeHKVrPNI2hES4 hN7emZwiobkmjMZvmRar dmVydGljYWwtYWxp L661PNJzpQfwFlJeXgV0 XfN9RzG6U8SvQsf6XUJw vPsjQD1srPZoQNnaNn4q kTbrtIncKQ8kBRVu ujvnWXZgwW4zQSZseGPj iIrrZO1qZWMsydjyf109 VuGzBMV9DGDkzUTdK9En cX8kKqGtFWSwGJTp A4NioENlTGkfR195EHeo VfT8JQTudpYzG1AqRMOl xXxyWhF5s5A7Op58DBMD ZWFyczwvdGQ+PHRk MDJ8zFppKBtsUTIyzD0m TEUrQ0x7OlLdKwK0HSui R4IqWZYwwcpzXk85vG3e VkDaOuB8WQgvN7Vt xgB8TJNkyTYoBFfrIUS2 G45jd0E9XJQxMZYzHJM4 xPJ5dA3zsKiliygajKWb dDsgdmVydGljYWwt MJsfE448OJCttFnhWb1Z GSH4C3ThZue4QWXlrNoh LY4gcLKwLAzbEl2ysFfc jEscAI3nKZOvnwbs PEAmgE6eAZEddIWsjUrq HV5oPLAoifpvh799QeJl ORZ2GQLxnHWgP0CtzS2d UoEjRSPlFTSdU3Su mYJgKIusX422AJgmXkT6 DHCaogQsW0OkPVLqkBeu WmK0y6D6Yn2YRChnrHE+ TS32td33F2YaRtwp Sik8EFGvKGU2zMR0oL4y ZUIcWDihf5Y8rVS2Q0Eb nwZrlf5db2lxZCZjQEmd H13gnTKop2N9WAQv bRI6YCNicLleGnHuhE79 Oyc+ZLVoyXnif7QoQciq d9sqf9xmrSb9UkGxTRQy aiYijXnfFQS7o2De Io27K26hXZwfDJGnGISk AGJhMAUsrVdbet6tiG5x Ii8+KCOemGM0mJQ7aU1s RxVaQhB7VBsxN497 XcTkjQKuOwovl1vnd5wp nXj8GjAjPQQjnkNraPmv OAM6q5LbYx50H0MawFcx f6SzMtn2ub53wOJe c1R6vEH6X5LnKFHchvth fXMkbOdjFF7ePFDzkkbj AIVqxN8kMYEzM3o9DcWa GjS9EZosV5KntfC7 VZMoiIZnPKRxdCELwU5k xbrzp8jxhfpzJrGyPVEl BUc4GTi4CNAsuKbhSfUo TVQ9WpI7LKD3yCSu zW2sqQfphqvdeJ3tArs+ KDn0g5vhqHTkGW8gsKF5 HZ60IW47bASro0Q7jXQ4 N5QpHWRqfqtdvvhl nOB9ZFZnTEEduL51Uw4s xRqyMx9xAZSjFIH1NDAc lCIrM2HfeV0sOqVbVDIy HFFuR1UrvQDwWJsi G539GBwqZkW7LOMrqzEw W2EyRRHykIojSmG7f6T9 Pf7MZL88BE32DF47vIQg e3U6nAY3J6MuQCOr qmcvcmsioWL6RCRdPBWa vV70Ua3vkMjgSn4eKMFp ALT1CIDctCQlZ4JuwW1c NxAkEPDlULNfG4Ag qDSeVGywO326NShnUgR3 RWNwxvIfS0TvICQwnFyd KsB7b1D8Sk9KXd66IB27 UI50tTFjr1P7dLR1 W4DrJAQllkfnfovmqFZ6 PKFtQMGwiX85Ph7ozStj Dr0xZDNtKNG5AWXvjRVs C0MtgE3sLpAbFDId TCIkF2EjeOWxYPxlT995 KPexFyF4YJRmeiOcL6Rs PJLbmOqqRwO7t4K0Mg9X RDfnksp7O5MbPlfw dHI+PF53ABZvVN20jNIy gSKfn3hwrGb5BsDrWEJa JIL7gMbcOJrod9XfLYAh K46bbFUuk1H5UIOk bGx (more content not included)... [facility] Coding Summary HTMLBase 64 XecllmtkJCj0hUx+PGhl YWQ+MK7TXAVeI00neQJo mV8mY4HSEUfRJhlhSQTN PFyHPeYokhPaDO6paCSv ZXJu IC8+OU1eMDWiHteflXZo z5D3pEM1C53ekt5sXKze sOX7HBEuPiPxnoaws9jc dBl3CBrqEwweJlRy RGWxeN88HLP2nW39Rh81 fTKyoJVvt9mhzBq1IrCe GVVkYLE2pSwxSPuqo9Gq FTKrN02ziIWzz3Y4 IGNvbGxhcHNlOyBlbXB0 nI8rSSsrktvgb1qufbqo Lzb8jn95ePRtq1O7dRB9 I4YulwH0QMEwyXXg NktvlUNZhA0ytkjzv4ic xsbaXoNdRBMrMTh6XJf0 CUYndWcaKdXyQL82HQU1 WVDracCwA4SrPXQk lObhAtE5x6E6Tk2HI6NU MntqS5MMZDHUWMslyQL+ DY11zt56G9PzKjayXnp3 OZYmMVR3qIV1jJ7b QRNyJQfsw0G3fFJ8M5Cu xbZald1yj6xoYHMyYDwd S89bySKvf2L2YHJxxNX2 RKHjbLyjYhGsqP02 Oyc+KBHutUgmq7NeBgtu f1ewv8hiyUo1XzzpUHCe lbPwtVbbYBK7i4WiFq4s GFKjbOE9nXN5hA2c KkCkHaY9KEvyE489CyHo iTGaZbkcH94aG8GanUJ+ GOBrRmw3QDRmiAbcOJ1n C7NlZCZrilyqqDNx bUkuEA2qLBBatltzRLEz oG5qKWIqV7o0PwKkDqK8 MKqrK2CsQMFnwpisQa51 qM2bCoNlJiF6RKhg X9HmedF6FMBmmOFiQWhk PQJ9M29ts4V9UNQlGEQo DQQ9iBZ0nV8xaWnqwpfu bGVmdDsgdmVydGlj QXizNBjkJ822NRLxoTsa PkNvZGluZyBEYXRlOiAg MDQvMTMvMjAyNDwvdGQ+ JLGlXTY1kZypPGPd iZPmZIfaAa6fkFckyQbq CU1jXMStoiwfQLKrdN8x UUXvgOGitLexZC7nNQSd zfnlg174OgPgGCN6 BSKmkXPdC0YvsQ2mToDm PXOoSALqI1MmaUNgOPgg Q700HFhfJeK9MAJjlhXy R2XbDNNiaTunUlF5 x1K4Lo9Rg0WsavgeR4Ir rOCfAkJcSwmnDMw5N8Rx PjwvdHI+QA09XQKeCK15 JXr2IXF2dUvzZEvr ROMnN9EcwF6iOaTbRXNr ZGRkOyc+PHRhYmxlIHdp ZHRoPScxMDAlJyBzdHls LO1aUg6gOYNhXNZw cZjlzSFcVpUnz4cnINQo GKwvME1vgJesW2CsrYU4 NOOkg7t7Hy11F53wG5Cp dXA+TQOkhYD7rHD4 bS6qLeElNyW5RXndZ666 MxOiqTFjDwpjm7jbh2dj hRm9JdB6WHAnylNdkCoc ELX4u6ZcCf93Z28l IHdpZHRoPSIxNSUiIHZh hWcysq7zoG3aVu6+PGNv gYR1rDN4wI5qZrLgFjA4 QLmeN123VuSvaNNy Mezrc7vil7xzkUm8OzAm AVKlvpKdiKiuPUO6g3Ai Ta19B7EelNgks2LcIga1 mz52pAOkd2C1hMJ2 L3QhWESkwkgiaBYmzGlg JR7jULMouonyEIApmZ9q MHFiH8i3YtGlGfK2HWom V5YsldV7VNVdvFEo FXNxwVZErN7fdfjbb6tt rpdpNxSwTNHiSQi4EQg7 QCTcnCnpHqGeJRQ4FuD3 REW6iKEhjJ8ngSmj piqfsF2pQtg+ZNA2sUJd rNKAOD7fKblhaCT+PHRk YXX4zGvvQRrxODSqhO7e MDOqX5e2OxUeRzA4 JZnsT4XdxuM2WSFozJUr AUPywYRNmJ3ggzprc8kl fhokHvOwUWJkQZo2CFa0 LWFsaWduOiBsZWZ0 TsT8LWU9sLVwyL4hlMkd usoxgW6oIyr+QmlydGgg NBP6MWz5B1BeZsn5HQGd jMaaAY1agWUhLGuj Ds0ucJjyxQgzYB0tTVTo attff365NaHnt2alEIBl uCVgCFytBKU4A20ht6Y3 NOCfVQBhYKH7ySR5 vZ5dsXdgtrwgcJEbtKiy yeBlkGcqMYezYSexL933 BLDkvXrjCjAlFFn2S5Cq Zyw6UONspTegSH5q tOCoRDxiHr5ugTyigDdg ZA4mFZFxeloep844XhLt k8jsDQPepAVrBOnwODK7 S18mz6K9OUOgSXLx DRN2vSV3xR6udMmbgixn bGVmdDsgdmVydGljYWwt TSgyR328WSMmhAtjOpSc jWy7C7ZtPjc5KWEz cLjzCN7clOEiVKsfXf5b tAjgmYqwBY0aPIEvoltb u313PeSpq6cyYLIsbPAx PRaoYBW0Z70xu1S7 ZFVnPRXfDKG6vUO1vI8b bGlnbjogbGVmdDsgdmVy hNqtMXdjOWwkI046VJDl cDsnPlBhdGllbnQg PVlvOVb9X0MuKjgfaAN+ LM70NJCfHO64cTEmaZBu t0gesZm4RkCxEXXfUOK3 tBuzSQqig8CoWESr A73zeHTee3D3YHNcqEmt rIDwPlAwfEG7kO8eXEun azrxb8ixnokqRkexd2on cl32jF41Z87iCCcy ZHRoPSIzMCUiIHZhbGln mb3inE5dAt0+PGNvbCB3 eKB3aP0hBTEbLcL7SYac C391AxUshAJsOtpo u5jut2dnyXq7YuA4LERl lgImmRmgDII0v1NzRo15 B51jTEenBDPzITUdRBKq DQMbyUbojg5wzJ9a Ii8+UXImrET1rTA1qD9o ZnBvZlN4UGyuC915InDg xZDiLuyiX72dQ1CufJU+ JVFuXty1XVYxwAjc TM4llOCzQEpjHq0rMNS0 CuHjSgJiPHitZ5GzVULa pbllpjcriNK3SNQdYGMh iR08Ne7lkVqnZSUg oBOOhY5sdjbnz8rpsfbu DbJnFZFaBFf1MYo2GEPy aNfeZtEwQVI5UeA4BFU2 mNBejL1ytMjlwurn tH3iM7XxHALbgwvjVk23 fR0qBkMzGtS3YFltGne+ K6LYCvctRF9RX2aVADat SzwvdGQ+PHRkIHN0 nTmqXYsxWGYfnX8qFWCz A5o5YgCiRvV9FYwmQ1Lc TVUcfwcdWz80fD8cJoMx EsD1MWdnM8MrrvX1 ANBseMCoBCfvEAS2L28k n1F9JMXcRMThTFA4fWV6 bH1ugTuwevyfaQKftFig dmVydGljYWwtYWxp F516VWYhjFezPpArXxS2 ErU6BiG8E8YuKer5AROd fItjCA5ozGWlLFekZz9b nRgerOibKI1oANQi jlriLRVcsH3nVKHeePCq rNkyTP6gKAUdhhzci874 YgGjNEK8YGXmqCEkJ8Yd lH0xUxBwUOJjUPIf G8DzaXAxGPmoJ163KDuy SlO2ESDmsnAbS1ZzSREw mObkIaM6q8C5Rs87VYKP ZWFyczwvdGQ+PHRk TPB6fCubEGocOTXbtZ2d OJDwY2k3HmAmNqD6IYio C5XnOEKfkcpiBd90dS2f YtCaZyJ3BBlxO0Tp pdT4EKJbaBNaUIljRSS1 L48so3F6ESGeKREaOBQ4 jZQ1pD0ekOjvilkyoQHo dDsgdmVydGljYWwt HBqoQ881JPMmeWtfUc8F XKW5R7QoFog1AUBndYrd ZD0mjPEuERlxDd2obYtv bVbdTP9aNTNpazgz LANqfI9rPXMjsSNkbJfl TL5kBDObinarg615VjCd XGR1ZOCdzHTmL4VnlT2q UlHdHWMbZMFmC7Jk fPHmAWpdJ079PUijIaD0 HDPtakCmK5EuDJPkcNki JsA1s9J0Ji5KDZntfEJ+ VN45jt77P3YvFghj Biy4JIJhUJB3xTW9rW5h NMKbHRlop8H8mXK4A9Zb veHjxi8es9hxFVNgHAjz G87wlYVnj2Q8WKYm sIJ1JZIgxWnhJhJfaX31 Oyc+XYGzuUesb8BpItch c5fsh9zpaZb0HtDkOURg zrBnzCawKBO2w1Zt En66L86eTDciLQPoBGCv DNJvIZLyyFrgsb8okA1j Ii8+XQXoxHZ9xQB0bM0p ThJgEhZ2RFtlO101 SkMhwHAbXtjtc5ivg7rf fKt2JzTtNNNanaDdnRei ILA8a0DaDu96Z5OecYkm o7QsDjz6go06wYBz z4T3hBQ1E5UuCWQetijk jZPyoIyaAS8hBQCjdldz LXTejX2aBMNaD1z5GeSq JlG1DBybC3UqocU6 WFQjgGQnIKDkdOWKbX1v gfvsl3tuiqmrGxKoDOIl NHe1IUk0YTWmzHxdSbTx APM2EdS1TOR5nUIf oG5jjRtaveqxkV7dEer+ USl7l6cykSJoGT1yxSP2 JI11TB89qZNfs0C1uHI1 O9MdJCZakiosubya aBO6XCEpBXFunZ60Jp8b pUrsBy0cCQJpBKV5VZRj aSQaO0JbiJ1bEtVfTDJj ZFMsY2KeiVUpNThk J932VGgoCxT6EBHussJr Y3UxYMIotKghXyB1g6H1 Fs3HXH63ET99OE81jFMp a6T0mKD4D0UuILWa wxizfnmbaEY6ZAFsBPDm xR12Ka4ftWzpHq1rVNWt SGS5AXUlsYCxX7BafN2y FyHqXMKsGVObW8El gPQdUSuvK439QJoiNmX4 FOThcsKeX9FkHICllBue IuD8v0P0Gx9VRt95PW80 XN98cLCnx6X4dHN7 B1PlBREddzibdodwwZU9 DGIbDOOneP45Po1slYyv Mp3xOCOrWSG0YGGbhLBa R8XzwT0zWwVzUAOw MBQuC4TzkFJgAYmoM391 UPreNzO7NPIljmBrZ0Yo FBOhwVyzFaC8q7A7Mm7I CIdrhhb1S1IqQivw dHI+JH54EIRsUR42zVJn zMVbg7dzbKs6MhIhZRQi ISC4bFwuZKsid6FcYFAx K66qnNVkl2C0DIGn bGx (more content not included)... [facility] Coding Summaryon 08-15-2023 Coding Summary HTMLBase 64 PglyxnsmTVy1tCe+PGhl YWQ+DN7FMATjB38dmPBb oK9pG1QCOLuFHikuAQYY TQdOPpIzjrNeUJ4vgNLq ZXJu IC8+AO8jZMJyKmiavLEv c2G7mRD4P24jnj8sCDvg wKA0TXAcDdTpxuerp3ux bZy9NPofWdihZmZu XOKqmW14COU3lS41Bj92 uVQcbCUbw5zulLt6UzRh QIAdHGX7yBzjIBdxw9Jm VPJlF21nmNNyw9X2 IGNvbGxhcHNlOyBlbXB0 yZ2qFQyifhiem6tjimmi Ycp3rh66fDWvp8O0vSC2 D3JvuaU4WCJwxSAw YxgvbYPYvZ5slkzeq8tf pwkqQdQnRFYdFOd2JAl4 AGNhbHdtPrOaGB70CQC7 UAFgolArG1HkFIRb tXskMrQ5j1X6Qa8WW9KV WkimW6AVSAWEKBxcnSE+ WX06gy68E4QwHrwcJtz0 ERQuHUG4cFQ7gB8w APOsTHxdj3N5dQX2T9Bn niYdba5qb0doJGFcMTtb E58kfTJdc8B6SRAlvTF1 PORejEulJhIcoK28 Oyc+ABAmsRpzw8MsRnvs y2wte0uloKb5XpwbOYVm szRtoGlvPPV2z1DpFd2v OMLxhMM2bVH7sS9s XbDlJdK6YUldD459OkSh aLPoBrvdM34zV1KlwBK+ EXBpLjj9OKDkzUenPN0z O7VnQHKsgrruhKUa qPlxTG8rSXCeyalpCNNy tR2qJLOdG1v8HbIlCqH6 QQzwM1HrDJUikvqeSt25 tE5zNbWlBdX8FAnt K8PjkiI9GXIaeKSkZFwf FRN7R73di0N4XLKqCKDh PUM3vRF1bR5acZmwwajj bGVmdDsgdmVydGlj PVokMSdsH163CNTqkEnq PkNvZGluZyBEYXRlOiAg MDQvMTEvMjAyNDwvdGQ+ KFLnECM0zJzzRXBp lOZhUQuqXn8dhRmpmWql EU4yCIEmxfotQZCeaX8l QXYxiXJifUqgTE7vVXDt hpcln274DlNaCCS6 GTPtlQMcV5OznG7pDnJm LRVdQHDdB7NblEKkNIco Y175LIbaUnV5THIqswUt S8IoXYLufKphDjZ7 d8Q0Pn7Za8AqgminR6Ff rQPlJbTqUegjFVm7K6Yb PjwvdHI+AK29GEAfRA59 XIk8TGJ4fIpxKKtf VBUaD3QfcA9eNtCgGUYj ZGRkOyc+PHRhYmxlIHdp ZHRoPScxMDAlJyBzdHls XP6iYg2kJWXfGJCb mMkdsOXiQxUlz9erBPWv AQiiHR4nmYrbG5WakDA8 KJKud4v1Rc04F43fY5Lv dXA+BXCpwJF4rHZ6 rG6zNqDqMvF4GEwyS114 QrVjzKXaHkgld7jal6um bTv1CrB6ZNHdmwXygAxf XOH0v4LrNv49I61x IHdpZHRoPSIxNSUiIHZh wTdxzm7yvH3sFq2+PGNv rHH1zHH5cL8kZvCpBeP4 FDlpX615MlAscOGc Jxpab3uup4zaiCr1CvCs CDMvnbJjwZmpITR6m1Ph Nh94C9MqiRdkk7NgWyr9 dx16xPNfq1G9pBJ1 C1XwSPQvbjobgHWstPbb PV1wVSSsmezzTROoeJ1q WTNeN9z8LmTrRuO4QIda U9HtdrM6AYCwrOQk TUMdxOTEbW7revqjn9sc buweVlRpQLPoARy8XWc9 HHIrfSkxFxBnMFN0VmV6 MOR5bACrrB6rtLuf rgkniL2hVfh+ESV2pDPb bFIGDU2oBuxtoBP+PHRk SKR6iUatRKarICUzjP6j OJQqA4s5VwQgXeE0 FBqzO1AbyxT2FXKyoZZj USMhpDODcI1frdnpy0ua tiobJcBqGBAlYQj6AUz6 LWFsaWduOiBsZWZ0 NqY6VGH6oQEjyM0tuEma gijitA7vRkm+QmlydGgg MNI0BHj9R8MrDoa1BUAq cVdqDY8lhTNbPGyw Dh4qdWybgJzqFG0hIIWw teqyn268PkMsu1wbYZTr sGCpYVdfBXW4C35dz3K0 RSGtUMGnRDV0uGN0 qK0xgPpucbskqFFjbRif qiYxyLutWUakDUowG003 SLWylPlcOvZoSPc0I9Xw Scj3ZBZocPivON4q cYUxKOtaZl4wkOcymNfm DL0gKBNpaihpo278JbWx f8fyGWItfXInJGpkKZZ1 Q96yn8P9MCQkVCPc THQ2qKZ8gB8guWalvvsg bGVmdDsgdmVydGljYWwt OGvxD071EBMfdMfcYgBc gLk6K1AhCzo7HRVq kAfpJX8dgXKaHImiSu7y vUfjmVlzEE3uFMRdmszf a992UgJwj8exFLGyiNTh PVszZMD8M26qq3C5 ATXbIPMbESM7kXS8aR5j bGlnbjogbGVmdDsgdmVy nEctURirZMfbR522ZLAv cDsnPlBhdGllbnQg NKyfWLt9G6ToByocfKD+ SZ95GXTvIQ59yDCwyGXd l7zydKq7UtLkQQJoGZC2 pNxkGPehe3HeJQFv T87rhWHmx9B3EJCpvDqn wZVkHwLihEU7gJ7xQTro hbfjg9ukzalrUphlp5ex vd37fT30U01xAXiy ZHRoPSIzMCUiIHZhbGln sz4biK6eNo5+PGNvbCB3 fEI7gZ1jHNJgBsP5VBeh I291EzXvsSXhEitx v6hol8tbnKw6KkR3BNZd wxBgqTgvZWD9p2HtMx32 I84iRNrwDUOeIEBoBVTu IZJhaCmyvm2orF3b Ii8+XTXvtOV6vTC4rK6o VpCsRrH8SLuxY115UrVb fUMmZyxfJ00uG8UpgBL+ HULwQti0SFZcdNoi WW1fvLXeMDszGt3lBYS7 XmQyAzYtMIiwZ5DsBNKh gbjguwssiUY0RHUeMVAz mE49Pt4dqMtsCBBx uQOMpF5svmccm1bjgzms LlIsNZSdFYc5YEm8YEHp oCuuKrQbGHR4OoK5QUA1 iODcmT5gfHgazarr gK6kJ1BnHCCaxlxeAn62 oV3nDhKdWpN9FXjtPzz+ E5KJCuzwRI0II9nKYKfv SzwvdGQ+PHRkIHN0 sOcnVYbsOMTjdO3iYALe R6a4EkEcQbT1ZLqzH6At SMGuglcnPm02eA7oNyWq ZcF6VGzbH4JhikA4 YKHidIOtRLxhXGA3X53n g2Z3DJJbYNSmSZX0cTW9 tG0hlDhndpsffFLnfLud dmVydGljYWwtYWxp H581TOFdhVuzUuAgTlY6 SlF5IrA6Z7KoRgz2XOIc vHqnMN2yaDYnZNzmCq4c yNsctXguMA7oPUHo vhrjMPTglN5oIEXgsZAr pNmrIB8hBBDaluupb880 SpIzVAM2DTXnvDIsJ4Gz wF8iOeDbMTVjIKIr C4IceXRjNNamD004DSty TfN2AQQiogTpV8YlBWLl gDpxFaG2u4K8Yd73CNXM ZWFyczwvdGQ+PHRk UIJ1pZxtYQizSPQxxZ5o TUTtX0y5TdXcEwI9XNpr G7QwWUGvjojoPz59kY2e EtTkAvH0VYbmX0Lg wsF1FDChaJNrKHerWQK9 S67kt2J6EJJeMZVwYVQ6 tXA9pU2xjIetfhbucHMn dDsgdmVydGljYWwt UBuzL704BQFmhGusTb4L ODH3L2SpZul0EELfzYip KR2doWCkNMrwJl6cmHuw fXdwUQ3cWOKumyue BNJjeR2sFPWemXUefJws KF5fECGpzztud306PbRe LWD5HWOhyBTqD0DxwL2j PuLxRZLuQKKrS0Eg lKSqFTylY350JDvbLdO0 OYRemgNrQ9AbITEucHhy CvE0h8H6In7AKEqqwND+ YZ09tk47Q1BtXnau Nwu2LZRvKVM4jTG7wC5q RDKyPOxql1A1wHW5S4Io bmVtkp0oe4lyJBKtBUyk N40ziCYvt5I3OMOo wLU1FXUuwDxjGxDfcK74 Oyc+BGInoWwug8GhPzmy n5sym8vstWi0ReTqMDQe vvBydLyhSRI9k8Xg Cw71N51oDYmtIWTzTGKi ALUhMBZykSpzug8qsY9z Ii8+MXKwvZP1zLP0iS1m FdRkCgR1QMnlO272 VfTtmHTtAsbip1urf3iv bJz9WuSqHJTybmQjpNas XCG2g0IiXl15J5KihSmw h9UcUyk5xp91gJGw g5Y4iJA1Q6ZaOTYhgfak nCVbwPxxBQ8lYQCobvnv TWFjrF7vTULlA4s7EuVr YfO6ENdaL1KqkhP1 MHTiiDSySLQgdSGYyI3z krnfq4emxpegOuGtPFRe TCi3LLx3NLSeeZgkLyBb PQB4QdW8PJQ5bOOa iE4cxSnqywtfjU4fXas+ RTm9p8dbcTLeNW9zxZD6 TN82XJ65eJIig0N0cWH3 H3CmJNAzndxpdkvd nEY1NVDxGOQpzM30Ra8t iGfoMd6gUNOcYGY4SKZl pUOuG6MiaJ7bHoZqKVMq ZKHmY5WptPQaUWpw S405HPnmWuG0FLWbszMb M3SfQKIuhCilHqJ1m3D9 Au8KWW75JI45RP60vYGj m7V8dKD3C1FmJDHb ggnjsaamgKR1SFQfUODd kG70Ma5rbZiuSr1mHYSw AFC4TBHhdNKnD6QpyH8u VeKiFFKcLTOuS1Wj yYXbLTccE752PKmkDcG6 SSIvnvUaM8WvCJMooWzq IjR8e0Q2Jv7WJn83ZM57 XJ19jPEvp6H5bGV0 V5AkOLUwbfhruscrhZZ6 ILHzIURvdQ28Ey0dhStw Ts0dOWDzDOT2UWSvzXZn Q6ImuJ2iBeBwVPCp JTWyN2KdmRXzNEghG744 TQqmFeU9EFSuomKcJ5Vk HZKunElmZvZ6w9Y4Hr6C AGnwmme9J3GuUnmm dHI+HY04PMKvIO25fFXf tUUdb5bueWw6UtToIJJa KJA9fHghFMobp9ExKBNj W09csAPpi9P3LFBg bGx (more content not included)... [facility] Coding Summary HTMLBase 64 GkxpwpxkFMs9xOz+PGhl YWQ+VM0XOJMaI68byTSz oH5qE5OFRFsIHpiwFLLU QNyJZhNnglKaFE0aaNId ZXJu IC8+GY5mFRJtMgotkMSx m9U2vRU3H85mxj0gSNky zLU9CKRpFuCuamulk1st bXp7FGlgOxbyCgCf CMUklT43MYJ3iT87Kg38 tAZteXQkc3sdzUw0BqRo ALAsWRE2qTudYFpso6Zp WUHxN24gmEQjw6C5 IGNvbGxhcHNlOyBlbXB0 dI7yWCfdflqfg5wrbxey Ajh2za69nKFdo7H9xPA7 Q5NxjbW3IJRnqMRd SgiukLZDiP7hrivea9fr vhntXlSxBOUxDGs1KWp1 YKUdzCxmYnMrTJ91NVC4 SFTqylXzY8RjMJBe dHhxTaS8i9H9Vl8LT5UB FwuiN4WBHZKGSWqvbZL+ GA42jd06K2BdRauuIza3 LZTfGFB7gTO8vI3a BCFhMRevh0U2bVL6R5Dd ngQhyg1vd3ryYZIwMCmk P45xpDJyh2F3UKTqmHH0 PYRouAsuWzCjfF69 Oyc+XUQruDtgr6EdEvsd p5zgs5nkuNd6HqcvBQTp voCpwDmoNAY5j0OjJv9g TZOxxCC8kAL8jL8q IqUrLeZ9NNfeM330ZcOw jCFoKcnqT26oS1TspUW+ RYOrBek7JUXiyYetVR9d H9TaAKUlvmkztRLf rWfkBQ6lXSLikqgnMGSw rC4mTHImT0e8NqKvEiK5 TRsvD6HvOMTkdfqjPv05 tH6kAbPvDzM4IHxd I0NlmiG6BGPfgNFcKCbx ZMO6K75os6J5GGCjMFCv VKH5kYP2xA7zoJazruwj bGVmdDsgdmVydGlj HVibMScmL849BZGfwGwo PkNvZGluZyBEYXRlOiAg MDQvMTEvMjAyNDwvdGQ+ SHVvSNT0xWnzPBDa gPIyIEycYf0nqNkxnKrz RQ7qPQYretlrCNFufL1d KRAliBOozOglXS3cZDPt ymfqe475GaNdFZJ9 YRDlaHNlN5FgfU9mEqPw HFUiOQPtR0JnpIHfZDva U152AOthXbO0FOBjxaEz A6UpZLOmbFqlLoR6 n6M2Ar4Zm4ZvvypgZ4Jz qCAyWpCoVdvcXFj2C1Ji PjwvdHI+GN61NTNhGO38 IZs5KOX9pLxgGFtq ZWPhY6MuxR1gLzSwCHIi ZGRkOyc+PHRhYmxlIHdp ZHRoPScxMDAlJyBzdHls WT5uIz8uIUFfBPWl vFdkqUJqAmQls3yvNPRr BYclMB6brNowX3YhhDE4 ZNSfu9f3Ld31I91rH5Rp dXA+WCGhvMQ3fKB6 hJ8cToVdAcI4TBgkT289 YtQufCUoZuqhl0tkl1bg kSc9BeH7IQLvvnUtyYxi TDS2m4JpYt01C71d IHdpZHRoPSIxNSUiIHZh vMktsi8zeL2bOj7+PGNv qYP7fRC8bT4iTyHkBaB4 MXanM321GpQiuVOf Hzwuu5pdr1jvuAe1JcKe SPJkndXzhWhgNUI3a4Dj Xc67W3HpzDyhh8SlJpj7 mm03kEMnw7D3xJU3 A0OwXWQmpaoddYXmcSyq CX6zGNZstathHWPoaS9v CKJwN6n3RwToQxI7JSbj Q2XoghF3DZOzvWTj ILYfiUJZyQ2rtwklx8ye skqzRnTyCTUsQXa1ZPv3 UDBaiEllTkWmCPD5VhG2 CNN8wTWvlW1saWnm pxngeF7jMsm+CDX2vMEk pVBHMA0wKtmwyFG+PHRk OOA5zMbtZHepQXJgiO2o BUYhS4c0JwGrVcW6 FFgsC7LqdoE1IPPfoPRb OJNkuTAAsH4dgiodx6nl gzicMjCyXWIuLAw3VVs8 LWFsaWduOiBsZWZ0 HdW0SUX0bKJfmA2twOaj bqpfbW5qEug+QmlydGgg JJZ8WFz5B9WbCxc8UEOw hUpmRT3bbZFhTLah Fq6sfAnziCyjYN8xVLHz shvcv137KbIvy5brMGQu xXJkZDdgXQC3V98dz8Q9 JDFcXPJoMXB4nJH6 dV8rgVrkqpedpIJweVgg htBobPduCAptKLtsJ969 LXZpyKzjClUrCFu7D0Rr Qnq3AUPgxEwsXB9h rATiFBazYt5hpKnvlYvd VP0rLQImdkewe310DsQy z1rzHMYomFQqHHzwROC8 J67cj0A2XEObSFJq LRP1fJG1jE3ccIfswini bGVmdDsgdmVydGljYWwt BGuyU981WNJdhQqoWlYf qLw2H4UmVno0GIFx qRplBZ2naANoYJrhZh5p gYxckMmuUJ5mHXAihtjo z333MzWeq0sxGGYxhFDn NHyzTNY4A67qg4I9 ZPIyVIQzTSQ4jWX3mP5l bGlnbjogbGVmdDsgdmVy mRliBLabSIxhL700PYZb cDsnPlBhdGllbnQg OFxjBMx2C8TrRvhpuMV+ OW40HUXdFT40bAVhyICj p5lezAv8TqJeLRTlAJJ4 vYzzVGnxb9SqFXFb U54rgBCor3S2WVAwaSrs dSSmVrVjqVM5yV0zOPhi ihviv0wozoeaPikts4cm he37eV38X58vPTjz ZHRoPSIzMCUiIHZhbGln ma0wpR4yCr5+PGNvbCB3 fOK1oC3gPDNiJuJ4VYin Z593XaNcoZWqMtak o9iyv3omqIa7OhH8JSFh qwPqcBmqSAC1q7WkTn56 Z30zMKpvDGRzAQZuAFRb BAMhlVnjvl1wqJ7h Ii8+MBIqvTA4tSI7eD0o DgAtTfN2QUtyW106UgXx jKAcNeegW37sS6MxoRL+ RGLwRhb4FBWftZvm SC6vwWAsWExjTy4mGAD0 OzCvCgQeRFrdP3SfWPXk gknxofusqUS0RIHoIFFy qF80Gn3baXjyIJCo qEFKeA3iytwmj7lhpfty ImIgTFElKJw7WHh0BKWb vLoyFrUxFXN7TxK4VFX7 hSRglI4srQvljedw cK9gD4NgHPSwvlogYy86 zQ7qWbMuGhW9TGmcSex+ Y3NLBmdvXC9YU6yAHVxm SzwvdGQ+PHRkIHN0 hLqqGDemUNYgfM0mZJWi N3a2WiWtKmN6GYyiC3Sx IFJrsxchTz13hB0gGuUm XkV5ERluS0AgkhG9 CUGlpTRoURraBQN9H10y n0P2QASnPGDeRDQ5xHG7 sC5soLcwekgsyNSltUzz dmVydGljYWwtYWxp F473NFKsgNylPaRaGnN6 DiL5YgP8D9RsTij4VGVm eHhsSG6fiMCdFIdxJd8d dJsszGckCY3qJPVq pfmeGNOzpR6wLQNguXVm aZttAN8jCSZqliixj625 UuRfQZE5QIEozBZfB0Rx zH1wKbLvNMIiUHJu B6KowMMsLTegN813PEuq VxR6LADfxtTuH2EaJMVn aSgoXjQ6t2F8Rw49OMYT ZWFyczwvdGQ+PHRk FZO1dMmaUCovGCVccM2q TESdU4u5FdWgAlF5QFiv L4DwUUMtbqdeRv67zN7i QxGuXoX0ZHdvI8Ey cvF4FKYytUQhVVlhJPD3 S60sm1K7GMWzJGVjKDL1 wVE2nO7adBrpokftoTGk dDsgdmVydGljYWwt TPofE745JCAooScpOm0M TEV7Z7XwJnx3NWMjdDcx CA5rvTIiPUulOc5nuDnw kKzsDL7fENEhchzh BRYxxI3cKEHwoEUydLlj YZ4uOYAhyxueh185JvIa ZGW6TEGvcWVpP9WknB3g CrPfHNSgNSDqD3Jo mBSoJGblF752KBylQtD0 JPYxrzDwJ1CpGLQdvWey NwK0i5B7Di4SXKdgfYR+ UW81os60Y6OpFmsq Eay9WARqKBQ6jAZ3sD7d TEMbHWkhb4F3hET5U3Vj mhDzyh0oj0cyUKBmKPlh V63icWGei1V0YDXi kYJ9CCHflVsdDbDraZ40 Oyc+CTZpaRqzu6BeLwbv r8fqa4hvoYf8AnJvUAEm ahUnkQnrIFG5u1Vl Wy50H73vLItlOGJbPZRp UQDqZRXifItfam6nmJ9u Ii8+VKOlzCH7mCG9iG8v EzWmJpT0RIftU422 FhPwfAYpYxnuj5tuo8pj tPo9JrElYWSixxTzxMdm CTD7c2VhGq95M5PwjQbi j0GuVbe6qg84kWVd n7R4eJF7F3GtFPBdclon aUKmxMurFV9lZZUsfpbv MJXuuL3nXSOcW3b6WzYt ZpN9TJjgJ7ExlmS6 GSNtkFKlMEUzwHOPsW4j pjlxi8sqywayMeYzVMOo EXy5UDn9DDLthYfzJjXl FVP8ReM6XET3tVMc yR1agZhmqudlkK9qHqj+ GJe8j5eiuXRbKV2icKV6 WM02CI83nGGdg8O9oZB4 B9OtCHBxtvzlnlby pXV2ZLQhRHMnaO24Ih5r yIytDo8kODAhUEN0OPGm rIHlS9WusS9wAlAcYZGl HWCvP2TnpZDhUNou Y543HXqtNvD7UDZkzmLo C6JoLVRzwSkjEoX5v5J4 Lf4SYD02BQ47OO15fPTf n5Q3sZR9W4WqXPCw abqloidmhGJ7GCYjRMGz uG80Jp0ayGkjXw0yBITe RHQ6FDBrbBJwP0SsdS9c WrZuWAIqVPTaQ6Vq zYJrIZztA567TXykEhN1 CULkgbQbO4JoLKTxdArp RbB3x8A3Hv7BUs05CK33 LZ77hTUqp5D5gXH6 W9HaYYYxsvtkhujxlJF1 FAQbZBFyvE90Ha3lyUmp Vy0qZMBkOQB3AHNdkILc B5EzdC6iVwGkKRNt IYXeE2NpgEMqCCutO644 KJjlHrS8ENPtyzWuY5Ef JHIveHemLfU5x2S1Ig8S ANlewzj6O5VuLxcw dHI+PK41ZLTyCI87dUJr rDFig2wbvIr0IfMcMTPc DZA7qUcnASmpk7SqZGAo N03ikQEhh1S6MVHw bGx (more content not included)... [facility] Wound Care Noteon 08-12-2023 Wound Care Note [id number]# 1.00OTGTIFF [facility] Wound Care Noteon 08-05-2023 Wound Care Note [id number]#1. 00OTGTIFF [facility] Coding Summaryon 07-30-2023 Coding Summary HTMLBase 64 YxkkirevIRq2rKa+PGhl YWQ+BB5OKMWiM99ilZPc hM6oN1GMLZxGDzfhNTRC AFwABzLeyoBdJN7gjLNq ZXJu IC8+GO2hRRMxCronqTHc t4N1tNW9P84trj0dELuv iNI6FKJvNnYrorduc9eq sZl0EOvrZcbyMuNp FHJkhM34QHA2cV48Eo32 eZTdlIBei7uxkFs5ZwBw NBGeVAB8mSkhMLpvc2Pf ZMJeV33ydMJbw4W0 IGNvbGxhcHNlOyBlbXB0 gH8iLHsikqidv7sbuqzz Tmh2fq06gBBkm0Y1dYO3 R7MiccG5TMMydUPh IohoxSUZqO4mfhkfd6pf pgvkDxCiAQEpZLo8XUk1 IPAmiMgqQkMtID78DUX8 RTNcioSpZ0MfPZGi hEpmTqL7w2A0Qe1SU1DV RubuM5WOCQHXQVbxgJY+ TD44zn75C2SrIohyCst0 NESwRMZ1fEW4tO2n RXSiUZqzw6H4zPY4I0Pw ofZatx6ck5nhQKXaANog Q11jaHUfi2C1JROuyWB4 FJQarQykJhZgfR06 Oyc+DWGxsKdoh9EaDlpp h1mqv6agsHv2BtwiCMQq dhOicJjyRFG8z4CcKg1n GBQnwYU7pIR0iJ9z ZfIpZcD2SAbhG223JzHo uWYnFxmjR24tY0BjnVA+ IJKvMmh1NHYaxZevDK5o Z1JvNSThvodlpKGr mEfoAY7jUGPmctbrZRDj rP1yQUBoG5u6XsJxAeG4 BSuxF7UmRYHeutrnQz20 lE0qZtOsUfV9RVac A8FsymF0MNAuwQBeGMfj MTJ7F41nd8S5AOPzASBv WZF3hJY4jL2xfDvrofqn bGVmdDsgdmVydGlj WLmtPJngE467BEAvyHex PkNvZGluZyBEYXRlOiAg MDMvMjYvMjAyNDwvdGQ+ NMUqFQQ5rQjrFGGm oRPvIHxlZm5igPmrpAaq DH3zNHLlfsarPGUwhF1p ZWZvlBOrfKqvIH8wXXOe qmbud919AwTyRLQ6 YFCuiDHlA2AjfI4fCbMw IRLbVGGrZ6KgmDJrERah Z219KZxlJjD9CQSmviRw B0PbGEPcfAxsEyD9 b5C5Qc5Gw1KvecmeM1Yq nHStGhFsEsavJBz4R3Kg PjwvdHI+NW40MSWySW33 BTk0FYR6lFwkLAim QPScK5BcsG4pLiQiQPDp ZGRkOyc+PHRhYmxlIHdp ZHRoPScxMDAlJyBzdHls AG3pMm1tTOEaZCHm dBbzkAUlCrClf0rwHIGc GYvkCF5haTqmM6RrrTK7 FGOsb9c7Wg94V92qS4Ah dXA+YHJodBL4nDO7 wQ0eNkArXjG2WAgnN051 BhUtpFYzKegfr1tkr0lk pDy3LaO1YDXduiDehOlh SOK9j0DbGh03O25v IHdpZHRoPSIxNSUiIHZh vOnvuw9unV5bSj9+PGNv dJB4zVX0mZ2fCfYlVwT3 RZitS810JuZkyVNz Nqzhf3ffl8fciKv8NaPa IDYbhsElpRjxQGR4s0Ym Ja33L2PtrMwjn6CfZsv5 nw89zVDno0J1dUT2 J5CjFJBhjtbnkLCdaBeb TR9vTSDxkcxzJYBgiT9d AHFvB5b1ZdFsVxI3DEii H5WaxvQ4VUSumVBh TLLaaUSXdF9rukfro6pp aaopOkLhHHWuSKw2USp8 PEOvvXenOpWuVUZ2RfZ4 ABJ2xHOllF4pjCsw tbguiY1rRfu+JMV1tWSn tXRJLO8tDjnxuEZ+PHRk BAC6lHouPIqnDQWjrP4d CJZpV8u5BiLwZqP0 EWsaY7QmmiB7ADTkaDOg ZWIjcEESfP4biegpw0pj ommyHlIzIOMlMEh6GWw7 LWFsaWduOiBsZWZ0 XdZ1WYN9oXGlsG6fxUty mwndhM2fFsk+QmlydGgg VIK0WCx5X9ZaOen2NTUh hKxuHJ3scANbAXxb Cv1njTuvoZpqWT4jSTUr expyt481TqMqp9owVQAc bHNoZEntZPB2G79wt2J0 ARHgJDOqBSO2wAD5 dF0ylSufzpgtlMEfiNgw ypNkyGocOXvaEOssP663 CHDwaWzdHoDlSNu9W5Cr Jqv9LWWvgSnzWB5m kOSbQSdfOs5wpQtfnDly RB7aQVIckytud377RdKp t7dpZWLymGJwIGivNJO5 Q02gu8H0GFGtCISj GMK3uIV0sL1fdUppjrcq bGVmdDsgdmVydGljYWwt AVplJ540GPYlrBwoPhYt fTy9H1UaZzo6CYAw kFgbCO5rcWHwTJclNm7q dVnwgMgiYG9hKCPnohos u049WxLam8eoTUOpfSEs DCuuRUT8T02zv3H1 OATaPKFyECF3vKU6hZ1k bGlnbjogbGVmdDsgdmVy eOuaOGrhGWwqV753QTRd cDsnPlBhdGllbnQg RFlsGDz0K2HvYfoldCB+ RC52OUVuYQ21vMFnxDNg c3bkyQo0SpLyGRTpDUI3 gLppUUavp9PeQVZt S92viGFxw4X0YINjwAge fTSrRyJshFA0nV8pFZlb urndv6qwpsmsTcjpo2br wg18nR60P90cAIgc ZHRoPSIzMCUiIHZhbGln ul3iwF4mSf5+PGNvbCB3 zZH6iX5cFRUgGbJ6PGcr F522FlCcyTRgZkoz m4ynm0uddGa1WxU1DYAb riSwuFpjUQS2b1UwCm94 U99cEQdvVSHtGWQzCZSj UAUqlWxpot8ocP5w Ii8+OYNodIF3eXL9oI8w EoKsTgK6IDkkE221MxBe qYEtQietH56lO4PelLI+ VEGdLxj1LGOvpPfq NH1hsIOyVTlyZu7wZXS0 SlIpBfAeOVswZ2TdABHt kjktgcujgVT5ZBYtGAJs aZ64Oj4vgHqoTLPv oICRzS0kmkeyr5makbbf XmJqNXWqJDp9ZWa2LRCq rLqbZkXxGZN7YoW4FMG5 lDZbaK8zmRlqzodn dG2gV0RrKWJhhovqOl77 aJ5dSwKdZuT0APsuVrm+ N0BMXtzoEE6XO1wLSVlq SzwvdGQ+PHRkIHN0 vPnoBGweFHVkdK2qEVRr C0q8BrYdDfJ9NZraB3Vf VPPfrftmJf43vO2nVcNe McF2DCrjR3FumrA7 NKOydPQqLJufUZV6F74g t5V2LIKrTGSbFIJ0sGI0 aP1cpUligywptEXxePii dmVydGljYWwtYWxp H361XQHogXaaKsQbNaT4 HyP3BtP7W9UrZbk0DOFn xNdeHA7ddMVcGGiqLf6v mHjbwDbuHV4pUCMg zslnLZXlpK6kVMBdnIWi iLxaYI7xGCCcbhtxa646 LlWoJJS7TUVrqTTqR2Hb sB7aNxKpVPViOLAd Z1IstMYgTRurT956DBlg KfI9VXLdlzUtC8HqYULw fQxoTwR1y9S0We46WOJP ZWFyczwvdGQ+PHRk WNK3kKjyNKupJYSmqE2j VWXoG6f4BbHpBwA5VFvy Y7PvEXAiyfyyEx92pL3b FrJbVvI1CSeaG6Xn mrU2JJZwtNDdLWrcZCA8 Q65nk6E3CRHyEWDoIED2 rHB2gA5luNjirnegqJTt dDsgdmVydGljYWwt JLshK327CWQliMsdWe0A HKC3W5NkHmr2KGWnxHta VD8bpIYdRWxhIe0wmTrz sExdQC2xEKOqanou RLIqbU3mTFJlnLYcoOsh TM3jLAEehhikq505XnTd NFY0LFAxzAWmI4XdmN3c QmNpHHYaXFOlL1Bt fTXwFEmhN378TSdwQaG6 RJRcmxLgE0WgCKXlmAkg VrY2t3P7Ng7KKRuohWL+ UJ86qs10K6NjYdut Syd3NVXsDNX9iQL4eI9p VDCtHWyfi6Y7pLL3B0Mu mcCoav4fr0rmGZNnBZwi B53nsHYfq3Y4ZTGh rMF4EULliYsvVyIxuD07 Oyc+AWOfjYzsf6NhHxhz j2pgf5euuVt2XjMzRDCz oaXkrNzzVDY2v3Ax Ql33O78wGHvvLZFcVDFj TFXmJFEngLushv6tbZ1y Ii8+NMIumDY9rRO1kI1w PnSgAnH3ILwjB404 SbSqtAWlYezrh4paf4mp oNe9EkUnQEIhkeTswHqz KEL7e2KjUf95U5YsiAyh l2DsAst5xk19wAFz f6I7qDO5S8SoMPSmywwf cIUycOfeBS4lFNLrsqmk ZSItcJ4rKKAlL7z2EgLj MiN5JDuaB7KigmT3 ZQRceBIdWLWoxPRTcC3k cinst1ajyorqCjYwXJIu NWs3WId5ZJIwfFvpGbPb CGZ7NwL1RPB6yHOe zG8xbDbvsbstgK5sBvb+ TXc3b6nngWFhVD2zjUR8 EX40MX20wEDvk7X1oFP9 V9IyBEEiugjjksxx mFZ5YSIpBRByxW47Eq1v wNilHy0lYBIjVTH6YUVy sTRiJ2HlmL5hIgAoOYEf SXQvL9BaaAZkXZxe D881MZszPeI3CEDffuDf I4IySZCqsRakVlE0g5T9 Ib9XDZ46IL32FJ12hFWm d6D7nMM4A7GqNGAi khfbswrbvJO9DAJwVBHc vI13Rh6ycTpkKd0gTNDx SAN8ZLAqpTWfQ5AmrU3v TnYdWHTiUNVnQ1Eu oLAyDUytP423UCasDgP2 TLBibgKlL9BuRVXwdKze OyR6e1H2Ic7ZPj22EG93 VJ25lUPxg2T5wLG9 C6LmAOGyzogdaauspAV7 EQKxRELzfV59Pe7iqPqb Wl2eBIMdIBE5PDNptGYo M9LnuY9eYrOnAPWc VIQxD5LkfLAdPNvqL502 ZAdqAkY3TDJxpcAbZ5Pt PNNroPiqUoH1x0W0Ls4L DNlntsb4Q7ItAjrn dHI+KQ97GDVsHJ50aEBy jCLzq2alwQa3SzZuDJVt AUF4mDhpWSpqy8TrZBAf N00wfVAtz3Y2OJOd bGx (more content not included)... [facility] Coding Summary HTMLBase 64 WmqvtkffNBs7pGl+PGhl YWQ+DT1GSOTyX64qcDZy mM7iU8EGHUoTAidcAFQZ PNuTZjCswsZdON3sxQDo ZXJu IC8+PS4iKOLzNcnqtCKq r6H5bTS6V96otx7nVEgg eTW6JZSkRiUsmmozi2jg oQy5PBlbAjjjZpMr MPKrhM60MMA8wH41Ig78 cONmqGCji2swbAl4KeSa LDIuVDE1yRpzEXxwj7Ps CQJuP64zkXEuf2I3 IGNvbGxhcHNlOyBlbXB0 dE6cNUikxzglq7oudkjz Qsl5yg86tGOzx8N9dXK8 Y5AzaeO3JXWlpNEo PziiaITEkC9gdmmuj5du kaubWwKeCXCmAXq6QCo4 LJElwMxsCeKmEQ40IDC7 NOAjwvOdZ0VeDEBb zVaxDdZ9k1T4An2SD0ZJ RwrhP3BMHJKKZUggqMH+ ZG28cz29J7WbDmpdFjd6 VOXrUEE5mIA9eI0i BCAnARdvt6F5xOW9F4Cr jsCgcs5tf4veBFRqIJel V66fhJJfj3V8TYItbQI0 QNQpoBmaHoSapV50 Oyc+LYQfzEjpl8XiMbua g7jko8jcoUz8SwoaFDZl seHtjOwiFEW6a2QhSg6h ARRdoQO4qRT4sC8j WfEnKnZ9QUnrM816QjKd gAVhYnrfW23pX9HxcFJ+ XHOgDqh7AAYflGazAI4o A5UuEZJkofdjbNHa vYntIF3eKTAgvlvaBQQt nJ8oEMSlY2e4VoRkPeJ8 ZAszD7PkWQNhrvhzCk00 vV7qFjZlPjM0LQup O6KgbvI1PEReqYReBItq YNP4M29iu8A0PKFxMTRm SVP0gSA5hN1caIyagwaa bGVmdDsgdmVydGlj WYekARhxS787SYSjcHzi PkNvZGluZyBEYXRlOiAg MDMvMjYvMjAyNDwvdGQ+ HGZtOXQ0sMvfXLIr rBUpAEwuKi6dgDfgfBza LL9fHEVcguopKJYueM1e JUWohCQeyFlaBU0dTQEk pjmyg323FgAqYBV8 ISVcbGPrV8YdwL5gRaMb JKPpUEEgV9HdrCNcWYyt Q612NYwrXqO4CYQmnwTk X9NqXLNktYshByC1 w5G3Zs2Pt2QfnavbW1Sa mCPlCrFdBearUYv9S2Hx PjwvdHI+QJ53YEGyWV13 OSy6BQL9zGgtCVel IEVpZ3EybI3yYdYxXJPv ZGRkOyc+PHRhYmxlIHdp ZHRoPScxMDAlJyBzdHls BQ4aDr1cHBOlWZDv eZetpJMaBcQqp0xdWPXj DRadRR1ttLhyV2CpgTG4 PXKme3m8Bo79F22pG2Ix dXA+IZJejQR3hRQ8 sL8rBjTuWlL1FYuzK655 BlQpuREuExxln6gzu7fj eOa5ReO3DTEyywHfmOop GSV7h6ZvJu85Y33p IHdpZHRoPSIxNSUiIHZh nPlrnu0lvJ5jTq2+PGNv lCV5aRK1zP6oHdXrUfE1 EUzsY545VkNdoUCl Cjdvw9yll7ureId8FnFy KNJvdcXnmUhaFJM4q6Bk Ow77T5ZisEurk8BdLew1 gr45mESfj8B0sLQ9 U7DeITXpionlzNXfhQcb PS3oKVRhaharJBHcxM4l DPVvB8n3OrUvYuY4ZCcl T1PhjeK5HQLbeIYo YFQklQZGqX5yxooqj4ux jxtaQgNyDNXcTWe6RWt3 CKPejFoqJcSuMHP5IvF3 TEZ4gMAdmD6mmJbm vvhmcY1yOmx+FOR3pKTr lCXYBG1cUrgaxTD+PHRk DNZ2sUrrZVzaANVzxD8s OHTfI1m0HkNzDlS9 CSyuX2GzbtR9SLJhhQNh RVHleZXSgF8lzjxzh8ji kjeiCuWeWTOjOXa8TUm9 LWFsaWduOiBsZWZ0 OlG0BII6lTNicK6ouIfk rutfkI6vNqb+QmlydGgg LLN2AMc7W9MxLbb2UPRj qXwdTW9ivDWhJUix Fl5keMuigPrdCT0bMLNb lhfdf908NlApz5ybOPNz aWXgKSoxHWK4W88wn1K4 BQNySETfOHP3uYV5 tB0kbRqzarcovQNrbJfm iuRmwOwrWQulBTavA347 SEAbeFuhMfXmOPt6S9Xu Fdd5HYEuxKujVH6f kSPyGJtxZs4sgQchyFht YD3vGTRfclucn752CnPy r3vvXBNxlHZnCSmdMSL0 O94ba3W6CDHcQVTw ESI0qWC3jZ2lkByglpqg bGVmdDsgdmVydGljYWwt CUsjB633UHHwvUlmWmRg dWx0U5LbAgl8VLLo kDadJW7waKKqWFruQv7u yYemqZzlES6nCWBxmxou f527OmIga2evKIKoiBLy MOarJRR8T17vf2K3 PSIjSGIpQTC5dBM2iZ0e bGlnbjogbGVmdDsgdmVy tTldRBtoQBhvM573IQGw cDsnPlBhdGllbnQg GMhwLHs8C5KuEffogSO+ OJ88TCMkCU22aJEukNZw g1pzpAl4YdGuKLQgHCH0 pCbmPJfto1HaBTWu U39psRUrk9K8ZWPwqIhl tCEnIfXlqBO8wJ2zSAem vqlgp8nbbzgfUhwjf9fs mh21vH29I44xRVtj ZHRoPSIzMCUiIHZhbGln ys6mxB0lUy2+PGNvbCB3 bWC3gF5iKKBhBcM1GAir J786SaLtbBSsBguf p1fto9cvgLg8ItP2WOEm hvHobWtpNFD0j6LeAz52 N40aLNkoNZIlPUXiIZFl NQSicBqred8xtT1j Ii8+OFOwmWX2uZO0kP4l BhUuPhQ2BOhgN798CxNk pACrJuvqD91vI0TubQG+ BVBvMri0IUEagEdq IK5nyHMvDWetOg9bXPU2 RnJpUbKrHNfmJ8WdKPBl dsyzzklkeAI4KIRuVNPp nP53Wh7chSeyGOUt tLBIwN1sraawe5bbuczg LkKzJIAfTTv4AGj5MCMs zFgkEcHbGCN8WrA8NHA1 xECagS8khIlcdpcv qX5dA9JxKWRsgfsoNd35 jY4zCgVdOjU0XFkkEiv+ W2YSYlcqRO9AA9xDELmy SzwvdGQ+PHRkIHN0 xNakMAkbPLTcuT8uNPMy C0v1NqEhVsH6ZItiF1Ob TYMdgsyuGc39rO5dErLk QeN9WYnpA0ToloA8 JCIruHDqEOqcXZU3I00s y0Z8OXNtCJIkSKF4qWE4 uN5ejSjthtzelZCsgNfn dmVydGljYWwtYWxp O121KEQxtLfpGoKeJiB3 OuN5DaP0I4UkPaq5EKNp cElpNG1lhCFkKVzwKn1z lPjwlUgiMS9tQRZr yvfeUWSqxW9uXVWkzBPj rLbbXO0zCCFrwsrzy748 RjPgSZU5AIKxlOMzV3Sc wV3wXkFzTDDjJVKt B6LfqPPuMXbwY713IKqj WcB0QITzypZiE4HtIIXu yXimUsL6i0U6Tv86WDRA ZWFyczwvdGQ+PHRk DMW1pIohZYvbBTYemE4c SSDuR1r4SiMwCbN4CZie M7YqCNApdldlAt75bT4k JeLvDwJ8CFxqS4Gh ihO4MJFcuSVgVNvcSCZ9 G03fd7Y0SBFmZDIlASP9 vEA8fT2kbOrhbswyaEWv dDsgdmVydGljYWwt DOflF313NKEwuTfoYb4B NCL7K9OvSwy0PYQjxCki HO5vyDUlXOofUi4ryWfc hZcbPW0xUIEuauum BWQjzO1gARJriTKtvDtf NL5uRHYwedtjf894SxXd BZU8UTTfzJThZ7LinQ0l YiLtVPHuGOKzR0Nn yCZtQCozH092HDdzPdV7 KXOadaApG7NxOQBfnKgc JtF0b4N4Fb8JPRkrqVA+ DB44gc03C0RdAvki Qsz1QCGfROT2fCS3sA7y BDZiFTnbq2N4sPE9W1Fe mqWdbt5yo8zoOKLqFPdb X91fkIWax6X2FSRw qPY0WJCpaIxmFbXlwG09 Oyc+IPBkpVenr3EkApnh j1gby4grpUm1GrKtCOTy qhNdrUldHVK9f8Eo Si05Y07fFRmlYSBzPBXk JLIuYFEjoXzpsg0bzF6d Ii8+KVNznJO1mJD9eX8l QfCpBgW6DVdcI653 DpTknAMpXchas8vfm2nu zUz8FjBpHGQplpIyhWyk RBE5d8CbOp69B0OflQav z0MeSvg9qj07wRRb p4L8fNV5B9XiVXFkhodm zFMdcImhGE4fIQDprrml WJZsxK0dMVWhI3g1VuJp FsO2TCquC9FmsgH1 UYDgjBPbAKNqjYKWhA3f qqzfs7otnednKeDdYHZe BCf9HOg8XYXjuUdiVeCh RJP5AyF5OKD0vWWu fD1mdQgauezisL4cGtl+ SHh4r9jycJEfVS1xkPJ4 PJ96EL48zCYtb2H9qRS4 K9PrYDPufbfjrnmf lDQ0UZEoMVLysF24Go2r eZaxMf2eFOQbXXT1PPAa nZMaU7BlgC8gNlZuKNSf BCLsF8WtiZCjKNyt H845QAkfVzP5VYKzzrFe A9BiIXRcnYwpTyX3l3I9 Wa5GME87QG08AN47rOFd j5G9yFU6G7CkVMJy tphsppiaeQV6TUVpGGVm pA83Fn7sdVppCa8iVHBz TUE6FKWgsVGhF7GohB1t UvBfRFVxGHNoK5Vk sFNaRMesJ702CPexSnJ9 TILamjBbQ7NkRPVidGkv FtJ7s4S5Bo5VVa15LD06 TR75jVIad7V5hPW2 N0KxNJNyjkkknhfeqRO4 EVHpGENjvW15Ai4ywZpv Pu0mCNCgDQB9PUTtzFOy F7WgvR7jTpFqGQQf QYPzZ9XxcRVtQBntY571 YQdxIdE3ILWlfsHfV4Ae MIAdwNstTxB6k0H9Vo4T SNgdial1A0WwWbyy dHI+QI95SILvIE80bCPd gFVpl1skwJv4HyZdBOUs SER7mUqpVOftt0JfKAEc O28yrBZag1G2CFHc bGx (more content not included)... [facility] Coding Summaryon 07-29-2023 Coding Summary HTMLBase 64 GygmooeiNSw6lWu+PGhl YWQ+ZY6XQPUwZ10tdECt kC8yY8IQDMcRDwmpVRGS CFvQLzFwmfCuJS8hqVYp ZXJu IC8+XF7jVAWrEhzzlRBv b6G5wPH6U05vna3kNYim aPV9TZSrSrBjeuwbr7su zWt8YDypWvijAcEe BARpcL49FRV2wG59Xp59 aBPslZZuf9sbfTd3KtLi VVYwKTA0mTtwSRujg3Id TKOuR52oyJIoc0B1 IGNvbGxhcHNlOyBlbXB0 vI5oPHdrkzzka7sxzuqh Hrk9lg18zPNjv8L3xHA1 C3KdrgF6UWGzsQWt NqpfcPOSxM0mpyzjs9sm ufoaRwCuDWRlLBo9ILt8 RTGdtFfwKvDaGE13IFT1 REUppiSaB8TzYMBt qLimSjU3n8S9Eh6RC0LF WbqiC2JJFNABQVudcEU+ UG34gv43Z7AwUoubAfs3 YYYxGSA2nTC4aW2p GKJhTFeee6N5tXT6E3Et kuMdsi3fi7hsVOVcDTdk C79pgYAss8N2XBGfwWS7 DOBsrTovFhEmyE16 Oyc+IXMjmNhcz5EgIjac c0mye1loqPm0OfqxOBNe xdKrtMoqIYD5h5AdVk6b CYEmeLH7tTH3wB9k HtCxPiK8HEqlD049KsPx vGDcVcgoU05aI9TwxBX+ LWClPpv6WAZwrXsqNU3u U5IrXGYebcincZGm fWexFR3gMRJwzvqhWDTw pR7pFMCyW6c7YmXaYoI1 FNqdT2QlYSOqvhbdXf66 oX2iKsJdElU3TZpb Z8HyznY7OZTdrXAvEKni EZE8I32mj3U0EUFmPLJe UBX7dKN1zU2pzHsmsneh bGVmdDsgdmVydGlj FRsmLPakH090DJDlyVxg PkNvZGluZyBEYXRlOiAg MDMvMjUvMjAyNDwvdGQ+ QQErQDV0lJwbLCUl gQRdBOslLa2kzFqfiUqf HR4uDCBjuvrcTUKhuZ6i KUApuTHvmOitOV5gSVMb irpna168GdNgBVY8 RCDvkKYtP4NspR5aZzRf UGGfLYYxK1GyzTGzNNvw I035ZCyhRmV0CRUnqjSr L7NbZIMrxPdsNwK3 u2F5Dp7As4HrpuozJ6Ez lDOfFcZiLpzwHVd1L2Ze PjwvdHI+QN24TWAyPL79 RMl8ANJ3sAmdMFnj XCPjY0KrxX6mVaTyWIWi ZGRkOyc+PHRhYmxlIHdp ZHRoPScxMDAlJyBzdHls RB9hAb0vEFVxUYBt fUnxyWGkYoLed6xpBYCx UHpcTF7qfOxdN0GoySO8 VWPet4b5Ho80L64fC3Zf dXA+OECgqIA7oDS7 gM8xYcNfVbE7YObdG024 IjNpnAEeDeqgz8hry5lx aRn8YuI6MIRqlaEczMrh YYY3h3DwWo08D34l IHdpZHRoPSIxNSUiIHZh yXiqfb6xmJ2tHx5+PGNv zRN4nUG5dJ3qOoKuHsI9 EMcvW439ApTfwKRv Ravdu7wvc4gnhWk1UsEi HFVvlaTebMydHPL5h0Jm Jt85N7AuaCvor3GnAqd4 hr03uUYul6T3nVG5 F2NwOPZnbnjipVSauLvw GN1mKQMuqfoqMDTatV4o RRZwP8d9ZoDyDjX9JZep L1JonhD4WVRhpXKc THQzeDCSwW9bvrxog8ld dqpePvJaLQWlYTd5STc8 ATFugCaqZzPnWWR9BvC9 PZQ4gSBasF2jbDey xipfrI2wJrx+ZOU4oOPa xGSFCN2wZxomnLV+PHRk SSD3sPneYLnkVHCqrY3h UMVjZ5x3UeWgQwQ5 MXnwC1ZuxxY5UYMbxGBt DUMsxLNHnN6lubers3ah syyzBiZcHJJaRLd2KRg1 LWFsaWduOiBsZWZ0 WzS6SNB4jUZxkR1ldCob lawakU4bWjl+QmlydGgg LNT9YKn5X2KiQwn9BNSc sXvzBF0ceAGxSYwn Vr8mdHvenYnyCD8uFRBg fwzrs111VrEnu6sxAFOx jLNuXTiiRCB9A11zd3V5 XCJxNWLeRVJ2pNM0 cO3veYtjnmipbUSmcJpx iuEgySgpSSxsIFpfO480 HYMkfBnsAdQdLRy9V9Ee Zev2UNTocQvuTU2w wYQtVFteRp5ziZrhmFtv DG9tBGZahtkwm733NrCr y5ouKYVxzDJtHQunKGL6 Y24pa4X4PKTiWFYz LIU8aYD0kA5mgTyllfyz bGVmdDsgdmVydGljYWwt WXqeC563ODHmbOotNyZl sRn4N2PlGxm7JAFk gCyfQG8oiHGpRHhjEy2n pAnfmMzoGH5hZUGlhuig r162OmKnb7imJAUwtHZy LCzsZVX2K45fr7B6 YOPiZAXgDGC0uPF7uP6m bGlnbjogbGVmdDsgdmVy oAjbMSnyGPolK502XPXf cDsnPlBhdGllbnQg TJhiULz0Z1ZcLmjhzAV+ LD21CSLlZC76vFViyFYm p6aseQn5XrZzDQHpFGF2 oHcmZRrto5YuQTCh L26hxPYhr2Y1WOBhoQvp gFTqXwKsqTG6tR0oAXsq vedfp1bckomlBenyz6jj zb45uB53J01fLCgy ZHRoPSIzMCUiIHZhbGln iz3ebS3dIy4+PGNvbCB3 rKJ8eO6vITZsJuP7DAgt Y223KwGnxJPhXlkc b5lvm1bskUt3VzG1LMEa mmFxnUcmQEI9u6ZrVs89 R54fYKpbMOVnRDRiUEIa ZJMlnHwdgl3jbD0u Ii8+HEFlaPF3oWL8iD6v CrYhAiT0VIhdI226KkNp pAEyUrpcM64nL6VdoMQ+ ADCkSxy6NSXabOfo II7nlBWtJYciPd5rGWY3 HpGyRgIeZRfjI3StYMKl pyhogekehJK2ZIBlILIw jQ83Ut0mzUmdBJJm lPRChO0jbhjox8unyxwo XgMvAVUtPVm3QAj6KYOl mKtiIsSlSHY8GtK8CMZ0 eOJqrF5czNarmhgp nB2dJ8VgHMAcvyzrKq39 lZ1tPrHrWbR2KRpyNwi+ L0VYYqmkNE9GJ6aDZBkg SzwvdGQ+PHRkIHN0 uTmwHGmsAQXocU4bRUFt W3n6OvYfPuZ9OFdbT0Zb XRWijljcDv49hM0rKfNm AyR1EExlG2SzlcO4 VBYphCQuTOhuODN0F41w i1R7BYMyQIYkFTJ0vVZ6 vV4btFxukfhvsXTsmUks dmVydGljYWwtYWxp I823VLAelDygRpMlNyK4 EfE2JsK1W0CqFns4AMCf iVdhEI6hrESnZEgyKm2o fRiffXulEA9jRHNb izthMSKzsD6yWRVbaNUp uLjqDF2cVEUgdqwwe151 JfDkERK8LMEstTVdB5Wh eQ8eBzBuPSNoISQp A4FbzLUmBLacX519DCgs YcF2FQMxcxTtI2WaWVMk kSaxQaA9a6E2Qw94MDLA ZWFyczwvdGQ+PHRk RUH4oFqdXDcrRAXuyQ7g LIRbR9s6NiKtDmP7BBsn J6EyHIDrnuhbBu24yW1g ToZtTkR7ZJafV7Iw hdX9IPBtmWQaTKwuSKU0 X06az5A5WHQkXTPpBXC7 bDH4pU2qnRgozcgltFBn dDsgdmVydGljYWwt UBkzD890DBBseRfgIn5B VRT1U3KpThp8STLydSdl FU4tlJGjPUvhOd2txVmk lOtxQV9sNWOupxid CXYsxN6mAQNjxJEipVzo AY4tRSUbnruhw678YkDw UAZ7AFEifHNrJ0YqoI9i VjUbCBPsAUOhS3Go zWVcMHkvJ066CCuoSlW4 SQAuxjCzC8RtVIYdpXhj JdD8i4C1Ua5ACAjpxKW+ KC70rn62V7QaNwnv Joc2GNSmYGH8oJW7iX5k WNCxSUuop7E1mHA9B1By poZyxk1if6lnZBXoDMbn K17zjXNkd5R5LJOr yTQ6JVEyjCmiKoEmfS72 Oyc+VVWrbZagz1YjZakn l4otf2vsfRb3TdFaBGPj rfXguIiqGDS5h6Cv Eb45W93qTYmmWUVwRSWs ETHhOUYrqDymbi6jxI6w Ii8+TSVfuJQ8bMB1dX4p DmKrVrN7PGyxA371 HjXdpJKtNydhr3zkc6ku oKe5NhZwWOGzesXeaYjh PBA2w9MtHc20N5SveApp q7RrEhp3me57sKKz u6M0oKC8V0JyKPWfpepa hKTleRwxNN9hPQGezbqx GVRwvV9tUFVyF8i5ByJd XqS4UGvxC2FjbwT0 NUZfmXViDZXzmSWFaG1i ptcpo8nnkigiJsGaJIMk ONo6PIn2GHCkfXlaVsUg UBJ4SsM3FZU8yXMw fM5pwPkoqijtgS7mSgo+ NIt8z9rphRRgDG9uhZQ6 ZW61MW12oGDui6O3gGO0 H5OwVGRqkfgqmdnp vZE9WKKtVVTwmJ36Ri2l rHxcDt3oKWCtVPR5VXEy vLZsG0WyfJ2kLyBxRMSa PDZoH9ZiuEFjBXfr V667KQbuDpL7SDEmhuZa P9GrZWMumPmaXvJ0o5B0 Au1GOS49FC98VX83gVBs t6D3mCO0H1GpYFSd wciimkipwTF7KTBsSOIc qC79Pn9dyMypZr0wBCXp NWM3TBIhsDJfM4YltD8j IoFcDICqYTOpG4Wc tVSiBXvuW626LCqwEzF9 GRSinxAhH2QkUTZhrDig VjQ8d8C2Ds2PKs41HJ62 JO97qUEvh8X1oKH0 T0UdIQTnywpycmsabIA3 LCTlQZLbnV59Ey3hmCvx Zd9wVGKnXCO6AYVjgHJd Q8DrjQ9cVzRsXACu OSWgZ3AwjEHiFSieN137 RKqaVfU7DZGhbxBxJ7Eg PXLxeJhnImH8w9C5Mz7I SXweefg6A3KfOccc dHI+BE52YYBaCD20wIQk cYOws1dqrAl6WiHvSELn FWT3gHmgLHmwf7VwYREz B81esHXzn9H7FZJl bGx (more content not included)... [facility] Coding Summary HTMLBase 64 LhzdffzqZHw6aFw+PGhl YWQ+MO7CCVUwP82pnEWu dK9nA1BCYVhYWzmxXERS GDhLLmMlksKiKC5leYGl ZXJu IC8+JX5mIQXfDjxckEQo n4Y9mHT3E94aem0kAXid uPX2XNItTnOpkfnaw7jd sLz7OElzIsfkMdUo BRAafT89UIM2mD12Rb24 nRGudUZwh1oklLb0SjQp DKRqBNX2cBavMPqav8Ir ORLsM51lmEHcy6W7 IGNvbGxhcHNlOyBlbXB0 wS0rPEewxskvs6hbiuja Fsg6fk69uEKik3N1eVW6 Z0WxgjM1KTXxqKEf MefgmETBlT1iqanyr7df ptaiBpCgNIAbVVy1IVj4 JYYxbJlvVeWeKT65JNS3 SCFedpErR1IbHXIb xYlcGxP6t0W2Up7ZD5UN OonqQ8YWFGBLEFirqZY+ PU03jz61N3QtIdddRev3 RKShLWH9iPY2lR6u COTySLhtl2Z0wYY8I8Lf dhIcbo7eo1uaDGUmFWqj S07kvATzp0O7BKUguIV0 EEUulQsdTwJypL34 Oyc+HXCwmYxiw6NoYqqz b9bsa5lyzNf8HoxnJGPg uiMxeVcaOXL9v0EdXb4i YDLjjDJ1kAH6eD8y RrVgTzB9AVbmU986DjGo iVAnAowhE75bX9ZtyYS+ RNAaRhc7NZCqkBlvGS1n O2GxKRLegvcoaZFo nFqhRX5rSQOrxoduQGZr hG6fXRZgF1k6LhVnKdC6 MFssX7FiOIVoyfpzVf99 qQ8qTjLbAdO5ZJfp S3QxrqQ7OHNhcBQuUPpl JVL5E35ai8I2BPRzUSBb BJB8tCU6fB0rgMcchbsd bGVmdDsgdmVydGlj SKipOIykI977YELekHkw PkNvZGluZyBEYXRlOiAg MDMvMjUvMjAyNDwvdGQ+ EGGpMHS0mLwnXZEt jBHbJTsdKe3chMlgoCjh HX0zPLEiksxyZMXvdF2f HMBnxWAseAscKZ2gEUGg tvxeb478XvRfSWU4 JXGitESrD3KczQ5rBaSo ROCqWNZcR5WrmKLpVLke L772CGkpKzH9OKLaipQz T2QtKSAziOlfHyP2 g0L4Rm6Eb2XkuwmmB8Hm xIZsJpIkWjhsUPn3X2Ka PjwvdHI+SS75URHaSH09 RQp1JHF0xIndVWhl JMOnK8QznA8vEiYtENAn ZGRkOyc+PHRhYmxlIHdp ZHRoPScxMDAlJyBzdHls BB1zHu3gNILeXOLt qWnbwHOoMvKis2olEUVp LUhkLR9luHwtP9BkxOB6 CBNyo6l2Ff78D50qM1Mt dXA+YTGxwKQ3dQO7 bE8cGfAjTaC5TRlkJ957 CfZeaKSeVkrki8jue5du tRr0RoI7QNEflsIohLhp JKU2e6FpOq31P69p IHdpZHRoPSIxNSUiIHZh rWwiel7zvG6mWb0+PGNv iBZ2zLB5uY0yDsEjNdX1 JYfiR267MnOviSTa Dkvnf4vdz8itkFz3JnVe MPJgviFqlFpsAXU8h6Ov Ye32Y4BsgUubv8ShSul2 td27dBQfx2H8pUN2 T1DqAWVctnuxvMMrqZbb NZ6oCLXicpulNDCdqD8k QMEfV3d7HhOiJbN3CFsk W1GjsdK2LCYoqAFi KKVddEGFcC3hujwik3km ahimMhLwLJZbDGu9BXe9 QLVgmWxdYiMsOVC5UyE3 MCJ4fBJfjI1geTlo hffvpT0dKnb+OJG5gLPk aKILVX4tMzfggAB+PHRk IMY2cPhnGBilPAJokF7y UJBcP7s2UoLcYmP8 PTmxV7GhzxE6NUBdeYPx CYHbeRGNuB6rgssyd2sg opvkCuZqZCZeBSz5QAi9 LWFsaWduOiBsZWZ0 BjU9DAA1pITblB6axGml hobsdE3bSng+QmlydGgg YMA6VYw5C5VsAnd9KNIr mImrFM1ezHDsVXla Ti3qbYnsdVvvKP0lLREq zlpxp216RtVak6ctXKWc jLOoNVftUTI9X70nz9R0 ROLwFDWpIJS3lYB5 gH2kgHoyjkcfaDTpsXbo reFcdJuxXSejKQehX718 YMDryYetRaRrIHj9S7Fq Tgm3QFAmqQghEY9b pDBsMFdzUd2yfGouzXau YH7xSUQommars251KeJg l1hbSCLvtPXvKBivZGV0 S46he0H8KYTtMADd LQI5tEA1mH1rkMirydfe bGVmdDsgdmVydGljYWwt WXoqQ678DNIueQfeUfJt hBa9M5JrUrg6NNJs bWtwNI1wjAXvDEsyVe2n bHiiyGqiNC6hAOCxifjr s891VbZrd1qsVAQenJMw ZSwhINA6C08zn5C7 LEKrKNRwOEA4fZD0aD6e bGlnbjogbGVmdDsgdmVy cQggUDqaTUfjL385IINa cDsnPlBhdGllbnQg QXfqNZc3B7PoMrtbiFQ+ XY50GQCvVA60aSVgdYCj x0zfmZj1JkCsLFOnNME3 pWhmAMsii9GtGBZj L55scIFbi9W3SEFfwKcj aEXgNvYzsOX8yB3tTQvk pogww0nndvkbNuhne9ee xf48rW65P75zFLgh ZHRoPSIzMCUiIHZhbGln cz6buH4xGf7+PGNvbCB3 wEO8wA4jUAJtTxI8AYow T909MpTvjGBvEyat f4dwj4nrwAg5XqP7NSUz fsMgfVxoOHV4n0FuWt51 S35xWQmtDTFpQNXwIJDm KHHxyQhcrm0czQ9o Ii8+REUiuLL5nXY8tJ6c KdBmLrM6UUroB002OhHc sWVlQwahO74dI3XnsES+ YIYoTdu4TFReaJpi NB8gaCXgLMveYk0fKUT9 QcLkZkMmJClcN1MxPGJq edgoucwbgFW6PIGmBDWw kH51Fg4wzJueVSPz vVUSnQ8jubgoa2konuzw KjHuVATrIMx3DNv5HIBx qRgyWfYkMME9AlO0YTQ6 qCUbqZ2lyQtrslpl mZ8vG7QgOHZkaywbYw95 sT5pViAaWfG0ZOllVmo+ I8TZVavvLE7GY0sMJOre SzwvdGQ+PHRkIHN0 vIobKJcjMVXwkI4zAFXy R4e0VbWnOhU6QQeeG3Ez VULqxxemIv27fJ0eHeKm UhB4DOwmT9YljnG2 UYZnyMGdOYzkBPP3B25t v0S5RUMuMMJrVLH4rQS8 kJ2zgAotzsjpfGUupEgp dmVydGljYWwtYWxp K023NXXlkEozUqBoAmG4 ItA0XiO4Q0CrIpg4QPOb vEbzFR3elOBeZJsqKf0y fTyjjVsnIE2dAZDj tktyFXSlfO4fFEHfdIAn mBubFR6gXLAuxhqnx919 CzNzQPS6KZFlyVHwJ9Te xF0eLnZqVJLyHSSq M5EdgLIaIWokS362JFhv HwT8QCCjtsAkJ8CxKZDc fBwrLwQ4p3E0Yq98UJON ZWFyczwvdGQ+PHRk ULC3zBspBGhoOAGkdA7s YFKjF7u6OoHvTtL2GSsv Q5JtZAJuabqkJd73bT8m BxTcPyN6MMnvF1Yj oeR1MFJfuNXkBQvaFDS9 H50ey2I5QDEoLRVqQXE0 yVN2lS3vtLtljdjrhLWf dDsgdmVydGljYWwt RYzbF340QMSalCmqLs4N PTN5S9OfPes2NCCbdWpz OO9txXHaXGfgQo1ptXdf rNzuBX7ySVDbvbfw SPGvjL1iKFAzbUKglYil IK8vDFGlnbnjb103IhVe MBW5PGAxnQEdV5OqmV6u RpFaLUIdNSZfN5Ud eSCyYHasT048QYhmIaW6 YORbkvVfG7RiPNLzsMez JoW0e3R6Ct4ERPocdNL+ GZ17kd01Z5XzGnut Qbm4TDNhIPU7cHV0bL4u XGNgQRxwq6P2pKH5H5Vl icPsuc3ww6xzQZZbAWfp Y91lhADqu8C6TAAp nMC8HZFevSjfOnUwhF10 Oyc+TFFwvFwpt4AbVgld f1lrw1xtzIc6HnJnSTOr eqNkyOdqVRB5h4Dv Ub90Y75oTKljJYMuTVOb OJTzUNRtbMkekv2acH7d Ii8+NNWtfMP6uJN3vQ8v QrRiXkL4TAmgP416 LqOsfEUvCtkfz8imu1ak sUw7FoLhAGCmudGmeBat JUG7o4XtAd21L0UonHly f1YcRkf0dc59uOHv j4O1zJS2V3LhGBEpvikb cCKgpPmfBW8qQKKwisbz REIcwU1dEMMlR3p6KiQy FqC5ETrtW9HkhmJ3 HEDzrDWyLTPppLGAkK2x nbhyt9lpwqddExDiLPIe GNw8VZt7IPSktRzaIeLj YFS3PvB6EHT7gJBp lY0nfQoudweodO1xNdr+ NKg3m1pyaECiFN7abXJ6 LU89XN74jZUia3N7vBW7 Z2RdAGHpchqlxyvf wNK5QTJvVVIciT68Gz8q iXjzNz7wDNTeAMN8CLZu mNRhM0ZboZ4uLzIxUOIm EABkF7LzwLVjCHby C339UVvfXjG2HFJknfXh G8GvQEAcqRbnDsB0i5V3 Yt8ZAP51RC05SE00jICk x2T8eLE0B8QrBIOy cdmtifawjGO5TOShVQDk xD61Ni9ixFodRa8hTIXn OME7HADtwPPmQ4WuoU9u IiHiVOCjCBXgI0Qv gONlJGptG943TWdeLdQ1 RSCokfMaG3RaZKTanEwe UwW2r1Q9Av6EMr48QT96 CB77kHMsw3F2eUI3 M7SpSQJrxhonmdppyKB9 LXDpHBEbgJ80Fz3fkSnm Tu5kLKKxCXF0MECweOVp E2XznR5yNlVuWBWo DVXpG7PquUDmVVftM721 ILxfZzR9FCIsvhVeH3Jm NVCupWxmJrL5o3F2Bz8X WUdxmxw3G5MiMfzu dHI+JW65OMCnRY18zCKm xSMoa1fbxEc4VjWcYHDh RTO7wKcfAMhob2JgXKFe C93veFCxv6F1UAHp bGx (more content not included)... [facility] Wound Care Noteon 07-29-2023 Wound Care Note [id number]#1. [id number] [facility] Coding Summaryon 07-24-2023 Coding Summary HTMLBase 64 QxepnhfkIYx8gSz+PGhl YWQ+VM1XSQFpU24ozLAu oR7cT3UOXGiTXppfXVND MNgRXzChyqNpFI1gyLCz ZXJu IC8+LJ5yPJEgWblxgOXi e1D0gQB4I44yqh1rPYyy oOK2JDObKkJbdkxxe6mj aLg0SKcxTekvVqOb JQEbgG90FRU0lB07Cf36 xFZnwSGam5rtoYe4TxCx CQEfOBV6fDnbSTywm0Ka TRElD98njZApp6D6 IGNvbGxhcHNlOyBlbXB0 lB6xORkdjgxml8fkharq Txy9zh22vYNks1J6cZC1 K9ZnckC7MVHwsGQp PlgttPILvP9uoghfv9rl pldqFyRtZQGdDJl0KFn0 GHAekAnwHaBvWG06NKF7 VRLfbpPlA5FpMBCc zZydGpZ1t2E5Th3BD5HN AsofK1GCEUEKELtkfHS+ MX70ru46G1YmBdnkNbg1 UYToFCR5qUD4nC5n FNNjWIspl9R9qOZ5X0Ux qgPdog2qw0vlNAIiOYwk F89qoMXsj2H7NDOhzPD0 HPAzjMdxAjYqcT57 Oyc+PROprPedm5YdVgxm b5wxs4xztZb6DjfyDLEs gyLtdAkvGHT2l0UyPh4e FBHvyRJ6mLR0vO0z NuYkGmC0HCtcL781AvEo zWLoRnoeM39gF8SymAP+ RDHrCex3CZEgqTqdGE8z E1OwDRWdltllpZEa pLrnJI6mKHYjavkbCJZs dS5ySIOmT3a8VbUuDnK3 ZUgbY7LlXYCujwjwAk06 hH8bHeJbTkQ7WQvy B0YnugU6ZHOzgCWcFYif INX4N24kw0V8MIGkHRTo CNC2vIZ5gF1hmIkyasfc bGVmdDsgdmVydGlj LSrhMGinM890RLHcxLbo PkNvZGluZyBEYXRlOiAg MDMvMjAvMjAyNDwvdGQ+ PHVgJBB3dAnuGYNi sHVgPJrjMv6atSvryNax BV0bLHPgcvpcFPSzkG9k MYMuiOOwbTjwGD5uHWAl khgaj863FaRyUCE0 LBTinNBeN8KiuM6kWgAf RGKlEFXeH4UoqFSgEMjw Y728NUlfRpN6PLXcocOg B2UsYQOabGbxEbC0 f3D3Np5Up4MeazknM6Gs qJWtMyGfVmzeBVi3O1Gn PjwvdHI+YD64FDXlCL51 OLz5DMI5vUroJGre VHGbC4JbgZ8cIcUpAYUp ZGRkOyc+PHRhYmxlIHdp ZHRoPScxMDAlJyBzdHls II8eQv4vXBFuAACg iZaewQOgKxZjr7bdYHJx JOqjMR2fsYxeZ4ZynIS1 SCCjh5t0Ko29C91yE6Nu dXA+SMXdmPO9eID4 qM5vYeGuDyS1YXolB746 KoOvhIFeYxqjk1jin7go bSg2ZsT9RGUanfFunPix XUH2g4QnSr50A14d IHdpZHRoPSIxNSUiIHZh mWtjfe4lpP3gVi6+PGNv rDW2dBH1jR5rDjKyLtV3 XNoiY498XzSsqYNf Rjgbn0txm6wkqIg2OvCe FKVdpoWumQwxRWN6y9By Kd29J9MiwOolu6JrVyj5 bu83mEKsq1I6oJD1 C0AgPWHskcbedOOkjIhi MP9eZKJkelldIZDjmY2j QAOgT5q7JcTkNmN4ROgh E8StseL0WSNolQTh SVRogBTHiV3agemjg5el razsGkWcPLKcITl8MPy0 QSBnxXkwGoPkWTM5LoA4 GON8mLEjhL2hjMin cypmfC2lDmg+HDI0eOKx aFZCKF7zDhzayZZ+PHRk YSX1bElyJKtdTXZmrC5y ARWpU8m6KxIcUeZ5 IRdyS1IjyuB4KWQybHYt SSVjbBZKsH7sxeigw6wz kesoUdHeEVLnRNs1OJw8 LWFsaWduOiBsZWZ0 GjX2WFS4tWGyhB4tfNqz lbbhhT1wEzn+QmlydGgg PKR9YEe8T2KsUje1ZOKp qDjoTL8flZOfFWpe Fa5eyWxowHxhBF3dEJDq tajhx831WjUwr7fuYNKq cUOvZVglHAF0W95kc4M0 BPEeMCLaJPN9cIF6 jN6riZpxrrxxqLJerVoo ytXllXllOKjbXVmsD781 BFPdcCgzHzLqCHh2P4Yy Qhw9EDBpoVwtBW2y rQRzHNyeJf9ucVvnnLwt ZL0aSZYhkbnnc515HwBt d2ubQWSqgHAxETzsSHT0 A63ls5M6FBQkECEu EAQ0hNG1xN0gtTxsxioq bGVmdDsgdmVydGljYWwt KQqrG073EHLfpWszBsFs mNi8T1TtJgr9IQKf qXekGC5qlNPsGYemIr2j tPobpPvtJM4jKGEivedh n895LvPlr1bgBDKqgFWk MEihJLG0D59is1S4 QYArMUFlKIA2zTF2zH6f bGlnbjogbGVmdDsgdmVy jLmfBAqvUIboK388TUAt cDsnPlBhdGllbnQg JEcqJHu1K5XaBtsfxPA+ ZS83LZSdRQ46mAFayZGi b1owsIu7BxIfIHAbLJR8 oFywHFgvr7PtUCMi Q55khTMtq6X6TRYmdCdu eNQmNdSzxRP3qE3mDVnl wnugj1dgfabpJatnx0tt lr33qJ89I65oQZok ZHRoPSIzMCUiIHZhbGln fr4jvH7cVc0+PGNvbCB3 hIA6fW2tCWTjYmK0EOaj J561NkQccUSzZzwt r5ynv5spuTh8MeG0ZOUd biQtsBesXTS5t3ItZo99 J63lWHbiDDEuFAJnDXUv LBXpyZjlyn7gpL2b Ii8+DJNyoBH0wCG4eA8r VyFmUiL0BJrnS900TxMh tPLaDrmtT07kH4RgxRX+ KEYjAce4DTLuxZqi XD5boYOnDQumQj7eTRY6 CiLsJfHzMMgvL7BzAGMn kldehdycsNW2UADrFCCj gG42Ag1nlCoxRIGo mOXWjN0hbrjxu0gcizir CgQfKGXkDIn5LMy8ANTu cAhuZhMmWVH7FwV7FLP7 fHWvlR1usHpdiocs wM5tQ4XxFTHspeyfXc12 cI0iVxOePnK4VWbrJpd+ M2KTDwmbAM2JJ0lZYHma SzwvdGQ+PHRkIHN0 oOiuLMfkQGXodS4dMFTx S0z5IpDlPiE9LUrgQ2Kr NVXramrlVp54wT4wDjMo EkK5JJfuH9MbvbM5 CULtjMWjIBoyIAZ5C23x p0G9RVPmPANxGQM3mPB4 sW8oyXdouthwiHJwzUbe dmVydGljYWwtYWxp A709ZVSosIitXqNrYiE6 LvH9ZmC8D7WcWnp0UIZt xZtuDK1xzSMvOXbrZy0w gHyoaDwrKW4mEZMz inokRWPqlK3zGKLwkKLc aDdnRL1pSKTcmsmwm368 EiQwNAA9QREaxCFtY5Cd sC8cGhUfYFHmYMLj L5IerUPpJMvjV064RJww DmT2RCXoksXcX0OpULDn vXokHkB6z4J3Op62FUDI ZWFyczwvdGQ+PHRk QRJ1mZcxEYdoUBJznS9t AQNjP5z3YxHjJxD6ZTna C4ZhKAZjlafhCe82rF5k OtVnTrN2BPkeE2Kc vzK0RNSklOOfDOcwRRE0 G86bf5S5DEVuKZKiHSW2 tKQ0xT1pxNqdkbzwgJSz dDsgdmVydGljYWwt KXvrF333MAXryEgtUb1L JVC6A9GmQlg3SKLupTzt BK4tpTQbROshJi6acQnu lXukDG0nVOPdkcnm MMTboM2cPWCmbMCozOdk SR3qSRHcjtnwg178KcGk ASK9VTZmpIMpC9XsxM5g XrPgEMHcEBHfJ7Mh tCOfZDfcE616ORbqGyV0 ZLPftiJkH8PaLTVetZii YaO2a1B2Vk5HILhwtPW+ LQ59py27R6HpXhad Bch5VRWlMUU1qKQ5fF4w AASwKYekd9W6vHB9I1Ma mpHiek0ti6noGPFgQQup P07erCJds6K3EWIt xKE2BMQwfYvaLaKvmH89 Oyc+OUVtvXlao1KtFrxw l6plk0ersNh9NqFyRTXe aoEtoDgyWWR4j6Eo Zx19U53vWGfdZXRiXLXr WWZqNSNrcOjhzj4moE0b Ii8+GMWraYQ7uNO0pG6s CjZgXzX3JPkjK982 NaNgwUJkKhnxr3yiw6yr oYd2LoQgDFWnsaZisUyc JTE0q7NmOg40S3OjsRmx i7LqSie4yw52zMVl y1O6gGN7J0LqRIEablyj qRTkiIpwUW4nQVXocznw WWVgkE4cOBHgO9l0VhJh RcO8NItqO9LcvbJ5 VOYioIXlVNBbhWIUjP8n bcvrh4vfkluuEuTlSPDt CIe1TSp3EWIxwBjnElDx PQE7DsI0CKI0nZFv uY6rxTfsavwbpM8aHwc+ FZh4a8odeEEtDH9bkJT2 EO73IP99iOMis0C9tKM0 F4WnKVHkqnpouqpw eNY7HCIuLICulP20Rv2p iPajGj0oTTBgIIU3BDBw hHYdL9BtmB4tRwSkUPBz DUKdA9UqzOYvPMtf I114LBckHoX4AMTzdvPu S8QvTVIfuYgtQjD8s9N7 Ny4KQC88UP28VG92rEVz i2K3oDZ1Q0UuJLZf zniulfiwfOA2ZVMkCRJp eI23Kr5iuSruIh5wFRAb OUE8PTRkwRUaT6NjaS5h SrDmCIWvUAAmX5Hi eZKbDQdxD270YNxkAxD6 DDLkgcLpO8JdUPBhxGym WmA4n4G0Vq4QZx58TE27 QF66cPPst3G2dUQ8 T1PyPHSenoxzonnysCM6 EYMxWPHwrR57Ek9syLao Oj8nAKSiWIV0VXDsaFAv B8LquP0rMyPcXVYb ZIFrF6CuqWNvOBbnZ136 LNejZzA6MPWfhoScM9Nf COTdkQmsToO3n3L3Yx7P LOfkexi3N3JuMjiz dHI+GV22OQSwWC08sWZf fIAbx0eghVq3VvRtWFFl FQN4dGbxSKzsl3SdIICb M70cwLIny1Z8VGIv bGx (more content not included)... [facility] Wound Care Noteon 07-22-2023 Wound Care Note [id number]# [email or web address] [facility] Coding Summaryon 07-19-2023 Coding Summary HTMLBase 64 FjgsdwgkSEt7tAk+PGhl YWQ+XS5NPWTvA12tiKLp tD2kJ1OWLWdUGbgoUIIN REqEMuHdovWhQA6moGFq ZXJu IC8+IQ5qKMRkBkpidAMr n4C8gTK7D55rfl2hSPhi gDY0EFXxLnVunwlli7do lQm2MFjbWbjiNsPv NWObfE42SMU7eZ52Xh20 xQNifBArn4leyHd4PqVq WJCxZDI0oBfxWGacq2Oe DMWkS63akAHuz3A5 IGNvbGxhcHNlOyBlbXB0 aU2kRQznypcgc7iervjy Eyp2oc24pCIjg5L6fCS3 H9IvflA5ZZRzoEPo YaijpNXOmE8ezypkz4yh rgigJcRtISKrKUt2MOu2 WYMzqKedKjRkDC42GMQ6 BUSsewOdF9QoRYCr yXjjRsD4v9Y6Gk6IT7KA ZbkmZ2GDKZSJNHbllLJ+ AO51th10U4QvThqgDmq7 ZPBdLVZ6dQZ1jF9j AWGlKNcus3R7aMP5B4Ze zrZebd4xf1vjIXFfEUsu S37pgETpb1L9TKYmjHX1 ELBdkRxrEnJdqY78 Oyc+ERKylXfue0VbDzen l1cve0rsnUg8YiboYMGw iuNtlHbhJDG2t1CdGv1m BHYaqWO9zCF8dS5r ByUdJuM4OHpoH795QbPg sMDeGbkjZ20xN3PmvFX+ DLKgJmt0PBJkjZneGK0o M4ZrMPXebyjdcZNz dQhfEG4aBOHrjzjgPJTj jB6rNDTgH8k3TaMpQhI2 NYrrS7PrSAVefjdpDt39 zM3cJlJsDaT2KLjx K6ZosfD7MWBufXTnWShf FKL0P50sd1B0UIFdSSQp MOY1fUD1vI9izDryhyjt bGVmdDsgdmVydGlj TRrjGXneO673ZCGoaSpx PkNvZGluZyBEYXRlOiAg MDMvMTUvMjAyNDwvdGQ+ PFTxLZM7pRagMOCr uTAhPTpwFh5fcLwbqPdu YO2oKGCsmpqrLBJhcI1l MBYqxSQuuAtmOG8jVADm rblfz197LzYgKQH1 YKQyxPUwZ6RjmF4kNjJu UVSqMGKwK3YfpNUyNGjo P465SXzdVnK9PKNtsvUc A0XlKVCsbFqzCtY7 e0F9Kd0Tr1FretdcF6Rp qEEfAiYzSoqkYRc9B4Kz PjwvdHI+NZ86LLJjTP85 NCw0AOS3wTffJElt AHCgK5JuwX0kHkEuXHAl ZGRkOyc+PHRhYmxlIHdp ZHRoPScxMDAlJyBzdHls ZV3rHc0uTXQkKXBx vCvgiYQhMqApg3roUCPr RZofXB8nxSokZ4XltQX8 XFWah8a7Nb77H76bY9Qm dXA+NWRlaFA4eSA0 qZ1dRkBkUwE1LLfdC783 FpJhgCApNxhef2rnb7bf kNv9EsR1SGXeflRvrCks IPT9o3MbNb34H46x IHdpZHRoPSIxNSUiIHZh hVpsav0ezJ5uJd9+PGNv rLS5lIB6zJ0jTxOaBxD8 ISgrH365QvOrgGXx Mybnh4knw8umgWh2AcCi CMPlmhCylVkjADI0s0Tt Or47N4NlxSvge7NeKul7 sz86fREqd0G4mLR1 C7AjQITewnkrkWHfuFru AJ9uOSQkwlkxXDEldR6z CPUrK1e4TkTxGmK3APak W4YczxR4SVAowUKg JIFtdTYKgI2rxuiwo1ml hqhbQoYbMEVhRHt4CPy8 RYDdfCvbBhAmJUO8MdL0 JKF1wKOksM2vjRzb jsqprR5rTya+AAU9nONe lZFNHR9mExaooFK+PHRk FNA3yDpxXBpsDHZxeU2w KTUzH8q0OiRrOeX2 DBmfZ7YalqO7KZZqiRTg FWKlyQKLhW2ifiokv4xa rkarCwFhLVTtKMw0ZPa0 LWFsaWduOiBsZWZ0 OqM9LUR9qXEleW8xpXkb biysyG2nRib+QmlydGgg OLI1UJm9I3SwNvf4MRIw tSpiDY1drITkINqb Xb0xgCcrzXnwMN2jIOGi qnxug542FxZrf7jgVTAe aSPjCZheZTS0P52hm6O2 KKVfJPHpLBO0gWF6 lY7hfUjgkvwqhTNneOhl uqYshCnyDPemCIyiB849 QKNhqVtwYhWhNJa3L4Cs Ohq0CIGcnKplXW3u fZFnQQqqUn0itImzjAlb MM5lKUFjlcqcr231JrUz h1ocUOFwkTEjDZexCXX2 U90en5W7OXMkNCOq FAP0dLP8eG0zgQvpwpxy bGVmdDsgdmVydGljYWwt KKajH274NGLwfTvqRhYu gBr7P3QdLzl7ZDKk bVfcWE4ukPRxEOefUc5j kUbknImcUW1jMBXrkspe a645GnRzm0kkTMBtiYXw YIzvTXO7O78yg1E9 CPDnJSWbQAU7zOY4pM9n bGlnbjogbGVmdDsgdmVy yFkuAHpaVMptL172HIYn cDsnPlBhdGllbnQg TEjoEOk4S1EtAsgttYC+ EE15PULcKW22fBDocVPf m9wbcAc7XwDaQLMuUEW6 mDgwUBvsw5NtQFHs H72axZAxw7Z0XDSzbTjf cDXnXpSxqHO5yX1qUFoe fyalt8kvqkdxHfyny4td si55yY85S89vAIus ZHRoPSIzMCUiIHZhbGln oj0jlX7vDz8+PGNvbCB3 lGE0sH9jWFElYaS6DCrp Q083VpXztGBkYsos x9uep4sfcSu8JrX3QGOa iwCkxXxuSZC2x8QxTh03 G44gDGqnEXClJUVzLQIg HUNdzNfqvq4tqH4z Ii8+DYXrpEB6nPO5uD6b MbFjOjU3RIvsM090JsEl rIRtUjfbR42gJ1IefCE+ XQUyYub7ZJSbzRev WI3qsZNnEUckTi4eBEF6 JyFhEdWwDJjkA2WlDXYk lsffzpbwrUT6DGKrDRQh pS95Lz8mvHtdPESp lRURxO6ypwdym9whvmia VlZxTSLyQRe2GRw2RZOz uBolBhDtIIK7BwP0RLY2 zYOkhO0xyFocgpzt fM1kK1ClBJVpcvugBq57 kV2iNgAjPiI3QPfaWid+ J0IRUixrJK1ZQ3qPZRgy SzwvdGQ+PHRkIHN0 cNtwTTuvRZZevY6iASRf D8u4PfDaSnY3XDqwT0Ex INFnyoqjHx71qS8yWzAd HyK0FEufF9BiksI2 DKLrbSPlOFctNYZ3W16b h7L6EQOkEAHhPHC5uDJ0 hC5pjBrcvvysrXApnSzs dmVydGljYWwtYWxp X494XSBuxAquCiSlXyD0 GxG6SsF7M8CkAvz5UPQh gChrKA8nlADxEGmzFo2t cAsimMpzBX0pUBJt drzyTSRqfB7gQBVpcGNt mRmaYC0fZLKgmlraz355 OxOjBDQ5IZQgiOEkF0Is iX7aHpFlYLDxRFXx D0HblKEeUAwfU315RCls FvC0JUGcflZgL7WtRWYo nNbgDxN4j3U4Go20BBSU ZWFyczwvdGQ+PHRk MIT1qHqkSUurXOEpdA2x MPQzA3r3RsJrNwK5BCkp R6KmWLDtmawrRv10zO3s RkHnLiB5LBqmY7Lx prQ8MEJiuHAwJSitWFB7 S89bk4T1ERZsBPAnVCY4 tZZ4dG1bsWzwdegxxQJs dDsgdmVydGljYWwt SKgkC091IASixZriZn3V QUN1E3EhYgs2WVJjeYfs SP2pqTAjTDtoTf3cnPfu fJzgMV4uJLCnmojw TIKrcV1nMRBfcJOboDjc SZ8uOLItrfkeu122InCz PHM0BYCcsNVkO8CbvT8m MvExCYWpHYUjX5Yv oYVaMZavM399MHnmRgG8 YVObgmXhS0RzQIKndRyz FfW7b8E2Fb0CQTwnaZL+ AC16ru53P2DxDkjo Vjb3ORHfMZH5nKP2zN6y PCPoIJnqd7D4iRC5G1Ni swRmhw1nf2ivGWHkSFtw T66wjNHan9U4CCBs oPI9NXMotKrzZhRszR36 Oyc+SIXhrCpfc8NrUwsr p6tzm7dhrCh6PiAcPKWz sbPcpZnsMXQ1y4Jn Ta33W86lJZvoGILvPVJv BQJmUPPodQjuzt4zqL4k Ii8+KSTxxNK1yXG1xO5o OcQuZhJ3MGbtN300 LfEflJGwQguur4hjx5fc jHf8CePjOVZisgXpeIxx WJR9n8ApXn66Z3OwrOny n1CoJmb8gq24rNUx y0D6tPZ2W4MzUELcsldw qBRycJyrIW6jDTQqtlge JOZtiI5tROQpQ3f6FpHd OyG7VQzzZ5TeseR2 FOUitVJoCHJlqNLWyW3i qrfsn1aaawkhQuBmIZGy QLc8OCh9TCCgqPpfDpMn SSE2LiT1MAW5qHSw yL4fjVumwhdijP4yJwv+ UTp5q7bdpMJcCO0xzAE0 SX48GT17uHSqu5G5fHP1 I7SpZKWtytynyvub qPM9CHNuHLNlpR68Yc8h gIddVx5jEOZpNKK1YFPy xVEsB5AdiF8tBvKiXOMz BVCnC6ZygOAlNBow R743DYvlOrP8GXHocvVm L5NqQWYiyCtpPwX8u8Q6 Kp1PYY36YB76KT37oUTj d0V5fWB9S7BaENLb crvrwgasnXE9SJLqLQUr hX96Hh3pcCqfNf8rYGZc QFL0YNUfcRYgA1KvfU7s SjRvDQMfQOHbS7Hn xZFtFErrS490UXotKvY1 KZQcycMwB7EiJTOpjKyt YkD3w3K6Bl0ASl61HH75 QT15cAUyr1J3wOJ2 B1MdILYlpoibdaomwCZ0 AMSoKVHajX93Rr4eiZld Iq5zJOBiMUZ6XAMohPIv R4CpkL7mHmNwSISp YACwC6DlpISqAIjzC232 AGhwYoL7KNZwwoZfG0Mt CGDzbJhbTzI4t7U5Cq5F ZMabqlb2R4EbZzvk dHI+PO45NTToGW93aZCf dYYxw9qnnTh9KlWzIINz KCD4hAmmGQfaf4VqJYPm S75ptJQwg4G6OHSf bGx (more content not included)... [facility] Coding Summaryon 07-17-2023 Coding Summary HTMLBase 64 YkjokolqIPa2zRn+PGhl YWQ+JG2ZTBUcH12aeLVg oK7wB6CRYFaAApnsRNWA XKpYYiRwamSgUU2xjHCr ZXJu IC8+BR3zCHAeCaaiiMBz y0W6sYF7F82mof6cXUve sZL2QKViUdFilfgwc5dt rEh9KMvoKeilVcPj UOAbpN87FCI3tJ15Uj88 aVCatSQlf5zipYx9HvTw IMHrDBU0bBzbCVtgi3Ef OIOaO24xgOMty7V1 IGNvbGxhcHNlOyBlbXB0 vO4cMPkroxufq2yctubw Bcp6up48uGWby3M9aXG7 S3AailO3RHPrfNPh JzcoyOQHgN3wzzfox1jg gvxoOrDuNTByEQp1RGf2 JUIuuFwjYxZaAW61IZI3 XJZjbkDfC8KtETZr kVmdPgK2u5R8Jx8TM9JZ UzhdG2JTXGFSXQlgcVM+ OP87ey44Q7FeKefjEbt4 NXJzWFV1rBU4eP0q ZZVqWBwuk8Y5eDF9L7Rc hhPvww0mk5dlCAVsLIsa A03bwXBlu1J6ZMXezYI2 PMFpnVkjLfGoiA14 Oyc+JEHjkErxp9RiDjfc b7lxp1ixmVe6ArdyVXOt joOcsYdcJZX2v3GuNu0z WHEtlWN1xOO1jH7j BtFyRbH5PYqlR043QeAz gCXtBvjaQ58eG6SlbIB+ BBTaHev4YTGuuNoeHJ9w R8AqKALpwypzqJXl rMutHI3qIXQigbioLTAh pO7tPILyU0w2RrEvNsU2 NEhrN4ZdEKMbcmazPk77 sJ3nNnWvDtY0XXki D2OcztJ6TRVljMByJTvk WLD4X79qt9T4PODyCAGr DNU3tEM6nG6sgCpymukt bGVmdDsgdmVydGlj WVkqPSnaN748JSXxgIvc PkNvZGluZyBEYXRlOiAg MDMvMTMvMjAyNDwvdGQ+ XGTmDJU7sTjzUAZk pOBuDMhjOi4dpFxryTct UG3gUWSacraqIDMcjL7r JSUmjQKmzHndTY0hTHZl gbstk933OrLjXGJ0 UHXzvSNuY5AhyO4yXvXn RKSfWWLbP2WdqFKoOYqb A076WPmwQjI3VKGhweZa G4VsUDUuzGrrKmJ8 p3C5Yf7Qz8QmnbdjY1Cg lOCqTwLjHrrzEFa7P1Ll PjwvdHI+ZI86DRNvOE22 TZi7IUZ7yUmjCRxo SPXzC3WjkB9dSjXiPWFy ZGRkOyc+PHRhYmxlIHdp ZHRoPScxMDAlJyBzdHls GF0kRn8iQYGrEIHf pRvopHOlIyUoe5ywMLUr FTrqSX3vqBlnL6NijLE8 CHDso7w4Nw47H73oA9Iw dXA+AYMldPN0cJI6 aO0bOqVmFvV4WXelY231 ZxRzsDXnSegnp1wlt4nk zYf6EbK0FUPbrlMqxWdu ZGZ7w6AfSs53E52r IHdpZHRoPSIxNSUiIHZh gXqyqh9bmE8oNm6+PGNv oOC5fRJ1cJ4hHfSmIvR3 ISxuS764MgByyQTp Scbml3hwf9pdoVd7QmJi BALaphJshJaaVGB0g6Jr Ax44P2FmqFcwr5SxPem9 xp75pBPpn1Z6iJO0 D7JvSRJnuthahJDboZtz ZY7oDLModnynHZVhyN1t IFLuY0y7LkFkRiE5XMxx T1PbftH5QUZitASg TZIpgDIXtM0nndwhd0xa cwoiDrEzYYRpTKs0ALn7 BLZdiBpvMgHfGLH8AyJ4 QYY9xIFrrX3buLbt nerzhD3nUaf+ECO1xLNw zRTYDW7jPpofuST+PHRk SEA1oPtuDOlsUYIhnL8t MCKpE6h5MmRmIbX8 RTiaI0KgskK8EAKbzNAb GCAyaFKEnB3tqznid3rx nkfaStJnTTTbCWt6VBm1 LWFsaWduOiBsZWZ0 LbR2WGL4mPSpfH1cmQvg nedkoS9zGvb+QmlydGgg SVM1JTb3G0HxTyq2ZFSx hJqsIX8cuFEfZUfz Me3peNrzvIufKO8vDQSt wjesf990QtJjv0jgAYUm lXVbZBxtWNF2L84kh2U7 QFWmYKFbDMM9yHK7 iZ1izTinlyolfOXqdCoq gyUalRosSXxzCJolF794 RKKrvVkrCdHhJQw3Z0Fz Jjw9CECypYooQM3r uOQqSXofMv0pjZrgwWgy LA5gIBYujqjoh007WzZm o3sxSJLhiZLsJKbmASE7 P79rf3R7IFMsATWk BBK5aWS3yC3pqGdurans bGVmdDsgdmVydGljYWwt OCfyD238WVHgxIwnOhEy nZd2Y6BbWzi8GUMv xNzpYS9woWCrMBuqWw1b qXpphQxdLP4iBJSzqdlg x914FqNux8qnITXcgMNm VCzuJVB9X31in2W6 JNGmEXOrKCL2oBB6mD6i bGlnbjogbGVmdDsgdmVy rUtnTRopSLunA945MGZj cDsnPlBhdGllbnQg PHoiJDi3Z4OnOuzdcRG+ OL41QJPlQZ00hYUrdSBu q2vvqHw6CnLwOHOjNYO6 bCavZOwjj8TkOOWt J49jtVLuc4E8MTLghIml xHOiKsKvxXN8jX0sVFxn hfgsz5lfhprnNeaeb3et si93aA25F73cTXay ZHRoPSIzMCUiIHZhbGln is8xwD6hQa8+PGNvbCB3 bCI5pM3xSLFbFfA7XQuw A386HwUijOHcJrom g4mkf6ifmSs7BqE5PKZj jwDrvDriCTB3i1XrIj89 V19aPCecPBOjFZOwLYYx YRMwoScwou5roD1z Ii8+CVQwtFN5iHC5bZ8j CjQgJmG4SIohW472FqRg fBMzBkntQ57dS7AhtQF+ UBHyGqc6WZNqsSpq OK0frKQeLXuzQw6aXMU0 QrAeTcHkABftV7UgISIv ddjrnostqWM7RHUcERCk uP13Lc0hgOatFZFf hAHBiK9dlwyvc7bkdoey NnTmUCDpGZg6NKx5LOUn hTnkAnKdUHW9YfZ2SVJ9 vWOphX2xwFlhfinn fR2cJ5CqZWNdoxocZt37 jZ8aRxEjWcJ2GPczCwb+ G8SHEklcVA8AT4cANVqa SzwvdGQ+PHRkIHN0 gVsoRLscFDWcbF4lOAAa Z9x4NdSyFnL3BCepA7Se GDEuureoDn17gW6bViHc OhQ4SIcsJ1NthdH5 ZICubIRyXEpgELR8G02u w4G8EYXyDGDuLWC4lMY8 bG2fxTjuchcspFUigLie dmVydGljYWwtYWxp J418KMAoeAlcRfNuYnD0 JzQ6IwI6O1VpFbu2WBZp fUtoQG5shJPhHZnkUp4a qHkffTtuJW8iBEEl tbvlSGXzfA6oIMTwuDGc eAjrIL8wYVRblddqz900 PuHrEQT1XCIpsIYtD0At oD0rIiOiXMMdSIHo X1RwlFZhEKsvB418YGel FyE1PLEgscIyM5EjPOPi kPynCnV8f1Q9Fj12WYBQ ZWFyczwvdGQ+PHRk WLZ6rXwaGQuzMIEdyL8d VPAkI5y0GuDbUwP3SRoz X2MyCIVptuvzPl50eB4q GiRzUlA3ZChaW3Vg vgP8ZZKwkAXwLLblWFS7 P19au9E4XZDkXWPbLGC2 rYW2kW3xtUdevryquNMw dDsgdmVydGljYWwt DGnmF606YWVlgKjcRh9P CQF4Q5XmHqc6JFXeeKxw DP6evQJtCBvjYe1ngFpv kOaxEV8zTNVclakt DVDujQ1dOBTudOLdoLrc HD6jDRYmplbtu677RpYt RCQ1HMCodULyW6SfoX2m PwMhBDWuNBVbQ9Ro uDRxSJbnT003EOgrHdJ1 LTDmkeYeV1TdUJApiRhw FxN9n8E7Vi0TZKrvzUU+ ZV65fm90D1TxFilf Icb8ZJWfXGD0hJA1wF3g ASAuULenm0S2dDO5G5Un mdPzuo8jw0idACDeBQtv V07jeTVcv5Z8FQRc gWZ3PSMtqXafOeVfbU95 Oyc+EFTemPxjd4MgYzae i8dkr2gdwZo1TdZgLYXv gfCrnZtlXSH2f4Ih Xd13J80fDCooOKSqGXBs PNLjUJKkdSolsq7otF2u Ii8+VKKvnPF8mME9eJ7y BoPnDwD8FIofE323 EzOefMCkDwhiw4uci1tg jJm1KlHcMOKzelEmlPdj ORU4e9AoGd04L7LcuMye w9CuKsl7ci35wHEs h2G1nCK2I9YxPOCvczgc lKZluOvuII3yRYAlbafp BCHtxG3cXVYrF1a2ZaKh KdB0JUxnH1QmefS8 ZUHhyCWlVNVnbMMSdL1q cqsqq9jpzddeVwJvFUAh RWm3OEb7FQUanKadZaUd XBW7McA1FFZ2jTZu aQ7imPitrkxqfZ8zVww+ BVs7u8vouPFoIL7twAR1 HN22JO01oPJrz9W4oAM9 N9XaKKOxpsevkhzg vXH7XUSuEIZalC46Zu3d qOgtQb4pJZEgQHH2MWHt wVEaQ9LoeL1gMnGhZESj PYDlA8IogPTwSAie W647XAeuPcZ4ZEWxuwXj A9HoKAHgzRrdSuN3y1Q7 Dm3TMO33ZU42NM83hAXy b4Z9yFV6W3MkQLCc ublimmjmvCD2USQkKNNb aO33Cp8zePixKt6tRAWh OXD3LUYlmYFbD2YvjC6u ItKhKILoDVVlT2Co gPPgFQlwC735BGwlCkC0 VILsahXrH4MjGFQhuHbm HvS0u4U0Cx2ISn30GB31 MC81lCUro7E1bIC3 G7NkEUErfujwkeuejDH7 XIPuPQRkbA88Rw6rsSud Em5dVZRyQKH3MPEaoPZl M3WcmN0rZqThWFZp LWLqB1SjiSRvRDfeK724 IYtaEpZ2JAWikrVdD7Ny KFKzlCxoCiZ7d2C6An2W QLcwmyj4U8EjNqgj dHI+LZ46ANJjXY50xDXo lAVsw2kwoCh8VhHaZXKe KHP3bMheOSvun6ElJPNx A20ktPSrc5H7BWAw bGx (more content not included)... [facility] Coding Summary HTMLBase 64 EkdcivggZEq9tVe+PGhl YWQ+OE4HNVCuV41oyVKh oR9hQ3RTANhUNuoxQBLX KRlPLnEailIeMQ3fhMXc ZXJu IC8+LF6kUAGgEvhzvQAr d2Y4pNF8P18kiz3sCRoi pDL6LZWjArBpqaqpg8dx aZt9JZqdUbbxAzAd TZOlnX48ZBH4rZ80Li19 bWQduPSoa0lkaDo1MpEy NZZhFRK0qDrmVQjdv8Cx BGNqM27mjMAyq2Z5 IGNvbGxhcHNlOyBlbXB0 eD4fUIdfvdpzw2mkovgg Mxe2dr92zJUjb3L9jMU3 V2DlqfH7YPEdjFCw OhqmqRTYbD6efmzuo1lu nyahHnFrCMBgHPq8TNd4 BDSzqYwnQjMlII78CMU9 DRIvytAoB3MwDZOe uEbgEaG3h3P0Cd9BC3UX KsbuW9QNWUPDOTojdET+ ZW67as29R6NpAhwvWny4 DUMeWZU8eKC2tB9z CWLyZGgkg5A8qFW0V5Cl isVlfx2rf6jbKASqBOzj N70esEGxf9R9KPPbbQU7 HWZttJxxDdYlzY34 Oyc+TYNwiAokd8GoVnxk m2bbc2wspQx9JgahVEZo gdQyoJdmLRG6j9XtCv3r CQJvxSY3xKM2eT2q ZpBmCyJ5WXvgO268UuVp jGKxEbtyW67fW5FbjCV+ RPBdGun1OBBibYcdBM1m C1GzVMLcfjgroINa jBjbEW3cUEUejsmqOLJb hW6eDFAkU1m4KxRbHiF9 VHgsT6WzVCBntyoaVy15 gO4gBbFfSwC9XYtc Q9OpneJ9RYJaxYFhWWjb OZK4L64rd9A5JEXzRONl KLG4lCP8wT2dkFzxnkwd bGVmdDsgdmVydGlj ACiaVGhjN631DULysWob PkNvZGluZyBEYXRlOiAg MDMvMTMvMjAyNDwvdGQ+ OUGdOHQ1pIrcTZVs cAEmFUyyVw2kuYtupDzm IM5xODIozpgzIXInyI9f WQJifVPkmIaqGH0tRWDb vgydu442IsWzYWO4 BZXfbIXdN8JmjR5gBxEr KLWqKVDoY9UofEZmMMim F068DTupYsN7VPIuabBs U9IcDMYpfBjxTyZ3 w2S9Cn0Ym7LpdouwE8Gy dAWbHbWuRjccVVb7V7Pn PjwvdHI+HW45CFQwXP73 GCo8KJR4lHnmTBtt ZUXuR3UzqF2lPyKoTBEw ZGRkOyc+PHRhYmxlIHdp ZHRoPScxMDAlJyBzdHls NN6bWc5mDFRpVHMb rWzyjDIkLvNqk1orFDRm AXfjJY6qsOngE4OutRV7 CJQls8b7Zd87Z91jI8Tk dXA+VESpbVD8iMD7 cO6gXlEjZyM0KZcyH053 CfIzxNOrIbbpb3qza6jg fOr4VyO7MMZnzrBquFqu ZTQ4a2MhCq75J42x IHdpZHRoPSIxNSUiIHZh jZmzpw6bwS5dDv2+PGNv tEX1aWD4fV6jHmYeTnR1 CHdzJ423ZnJefOSy Sylfv3xau2ziyRl3EyBn AIKibgHjsKzuHBE3b6Mb Nn74L9WoqWqtd0TtEvc3 fg55zHRql4A0aEV8 O2ZrQMPucnkaqQKhpMdk PP1cLUWlnfhyBNZbpX4a JFLmR3q1KkLlNtH9OIpb T1BtubX2YWNbuAWh HJWruYFCmW4bvhuit7pj lgovRlLkABRtQIt8AAg6 OPZyeLhhWjCyUBT9CcK0 IOM6vKCjqP9ikGvc hsurbI1oQbn+IVN4pOMt vVPZJB2gUzjwuXN+PHRk PDQ0cYvcQOmyGWRieS1y WZOhX7q7LvEcGwT2 QYfyA0YpgiJ0PWNfsAZy VVNzwOBXsQ9qjijki0yk enrhIvRiOYNmMUn6IZb1 LWFsaWduOiBsZWZ0 PrV9WFM3cYChyS2geHln zujyyB8wWnx+QmlydGgg KDX4YEd3G1BbKhd9MTGm bTcbNE7wrYTgICrr Sa8hgIvxeAqyHX7gIGBk eagyc843ExTyu7rtAXOe cPSxHDciNOS9K60xm9Y4 ZHSjBOTfQAA3bIW6 vV5tqAtfotabfOEjhCek kdNwgMndPAcdBUjbB179 JFFrpHfcBoIhPNh8I0Ft Ykl3PWLslYunCG0d iITqFEsrQl7rfNcsmVkl LT1xFWTimcena281ZvKp j5hvIJTbfUEpKVmsXAL9 G67ar8V8UBXwGSPi AIO3cQR3gT7qdCclhpfm bGVmdDsgdmVydGljYWwt NSghE199ZNDzsOysRcPx qNn0S1PaRml2RYWx aCtbNX4zjKCrDGilXv7d uGrwiNclQN6wHGBrwqbm e798MvMlu9ojYAIwcJFn JQqlJYF8Y77le4Z5 VJHoBUIuPUN6gEU6lB8q bGlnbjogbGVmdDsgdmVy cDcpZZoeTIakF118EXKk cDsnPlBhdGllbnQg AJfgRKr2L6PfAzebdGO+ CW28HVUtBY51gFAqnXWz u0bmoTc7JeEyRFNoLPX3 tGhpQBcdj9YyLNOb Z45gkDCxb1O1VUVqzSgw kQXcOwHekIT2nD9uLJiv hgint4adlixkFyoea1xo oc83qZ40U80zRBij ZHRoPSIzMCUiIHZhbGln rp1yrK2iQo1+PGNvbCB3 qAH3aP0jEHChCjP7GXfs M156RbWmkGPkObgy e4lzq9rilQb0BpT8NYGo meKrxQrpUVJ9m4RvPi99 C22eCSxiWETmMSSdRFAy FIGjvEgkfa5jrQ9u Ii8+MTMrcVO4kMM1rA2m JhZwCeH4RDvgI149OaVt wVSjJoghM56yZ6YciYZ+ HLTuEev6YYLmdYqt HS0wjJStWXwpCk7kGWG2 RlZeEgPdCEmqL5LnMWSc jgsrafmmkOF8OTPcLCCp kT59Jk2oeLfbNGTc kQGAmT4hwaegm8fzhgwd QbHfUBYhIHz0YDx4FERy hJidLkXwHCR1IbJ4TEU0 vSPxjV9drQcuxyzw iY4pQ0OlJDAcfajrFp83 bQ4bZnIdKuV7DSnzSyq+ X0NXCkxjHK6LS9jWBIik SzwvdGQ+PHRkIHN0 zPaeMMzzGZKfuM5mLQKj H5r8YiLxZbH7OGwdT3Vx VRMyszpkRa17iV5xIfZc CgN2SOnqL9HkaiF4 DAUhcRBkXJojUDB0L75v e2F5ETUaECUrTCC9iQK8 hG3ktYqpatmndUJmeHvl dmVydGljYWwtYWxp L356BJSjnLqwDtRdPpC5 TjX7OvR4O7OjWtt7AXFc rUoiGS4xaGFuKNmuJv3t uBbycDbkTF1bMECn qnvgRSKecF7xGQSjhNMv mCleXK8cTWQxtwncz710 MxOzSRN3LDKiuMSeK0Pn hZ3jPaSbVOQdDRQk B4FapRVwYEhrX696RVzm AtS7BNLdglUuX7ZpZEUt rHjrQdY9r4N9Ju65LPRQ ZWFyczwvdGQ+PHRk EIF9nUblNRwjRAAttL7r NNXwY4g6DnBaYdP2QBfs G0MmFIEosomeBj75nL0y QwZkRqY0LQbeD3Ze ktZ7XCUfcNUrOLpkWMB6 P66tu6Z6BWGyCYWvBNC4 nDM1mA0udWwlbzgqnVVs dDsgdmVydGljYWwt TGpfV270IAMwqMdrHm0G FIP6D3YoZrm7XBKwtEhn LX9jzHRrSNgpEx5zpZmz gYfgCY5lOECiezyh GRCiuO2jZZVxqHAguZsn FJ4dYCSnoilyt655UrVe UVV5ZOEicYXzJ4IzqX9u BaMeYFIlAAMvB3Wx hOGsMHkmB070KIowUqR4 CVScceGdA0XcZGJmhEco VmA6f9Y6Kk0OHRlefIZ+ XD21ik41E1BxNdvn Mwq9TYCpJXG3eRC1lX2v FSJzALfvs3Y9cBU5L4Af wyXoam8xh1xsYSFePVqj J61uvZXnh3L7BGDf kNP1LHMmlZebBgXsvX35 Oyc+XRCfiPvag1RsNvch v1igb1qcbIj6BfFwIEDo njEatNqsQXL3i0Tk Gb98C89zYJhwBSJpERNl QDKyRZXhiJvyhp2tiI0i Ii8+DUHrrFD0fJB1gN9u MnWxSvB3IUlwK037 XdChzKBtXynng1qzx0hi hSo9VpZjPZSpzwBggOdk WDX1e9HuPj56O8AeyZmz c1FgSnq4wv05cOUk y1Y9vSD3C3LdCLCihmdx xEOgaRasIS3lDUMwnrcl ESGpnI2yIXFgQ1s9UoDb WlS4VFjnD2HhqlT3 EXOreGAtRACcdYSLsQ9l apmvh9whddnpDeGrVHIp WDs5JSj5QTWieEbsZpPk LOV1XmD0ZAX1rTKp hO9wiEbsnhojgD1dMcf+ MPl8o9fyrFDzYB5duAZ2 GL70SK11dKFey2W1yKN4 W3WgUYYdpfdlujor fQP7YTFwXJUtxV59We7u nGxqDu9bHAGbAJE4GHIz eEFoH8WtvE5eZiPzZNNo NUNmP6KbeOQlJJyl F577EZguVgE0BIUpidPj V3CjNVFemWbaTaJ1x8V2 Mv4AID15DK95VV98mOBl l8M5cAX3M2BuKCZi fmrhoucxtXZ6PQZgEWFi nJ52Lt9kzNljLs0vOMLv JCQ6NQMspPNrW8GnbL7u CnKvDCYkVMOyR8Vs wNJlAOpqW072QNzjUvS6 CUVwaqXmB2HwYWHmcJze BoE8g3S0Lu4QUm47ZR14 WS08aLAxf6F3dOV5 Y9QwMABhijslkhkodEM4 JEVmTWHonS80Nn9mvZfb Wa7gIFAjDXR3DVNdeMKa L9PzoN9fVbGfHTYm USGqB9FdcHEgNObmD143 DMdfVxL3OJMcfiWnS9Ki BZFiiMfyEbV2c7G6Kz4Z DVxnddc8D7YhWhsm dHI+VN19RLKkSJ65nVTv uPJam3dzyWr0OwPhEDNb PYK2xPzoYFzpp7IvDVOp S48qnPDmw9A4DCSi bGx (more content not included)... [facility] Wound Care Noteon 07-15-2023 Wound Care Note [id number]#1 [facility] Cons[facility] 07-10-2023 Consent Forms [id number]#1 .[facility] Outside Recordson 07-10-2023 Outside Records [id number]#1.00OTGTIFF [facility] Coding Summaryon 07-09-2023 Coding Summary HTMLBase 64 KeronzklFBg7kYo+PGhl YWQ+BR9EHBXoX11ohCZk tX8rB1HBQGaLTqpkNHDU GSmDLjDrkzTsPO2waGPb ZXJu IC8+AK9eJVKjEwzmcODu r4M8dIS6D99eet2xSSyb dVP6UWMfEcEedulpb3mz hSj8KWulDlxkWwSq WZTmvS23JKP5vI06Zi87 uXDteFMfg9zauIl2XgNd YYJqQPY2zJznTIvdd9Tp USWcY44taWNmz2N9 IGNvbGxhcHNlOyBlbXB0 uY6rFJlzqvxhw6lbnixv Hes2yk35nQTxi7K5rLA5 E8UuzaW9PSJkbRFh MbybqQRWfM9khyggb2kn wvhiYvPxAFZgESq3BJz2 QMVzzPvcGwLoAU92MCJ9 BQHqxyEwI8OrGQBu aWtiRjC9h9Z3Ez7GT3TQ CbozS1KLZAHJTNttpJI+ KY42os32D9WhFussGbk0 IEGkJWO6aTW2zA6f OIZoCBoop9Q3yCR3S1Ki caWrnw8yc1npCPCwCDzw I57drYCzp9O4QZAfpSM6 SIWtmZtrIcEpbL05 Oyc+JNCtyGfwy2AaTehn e6ifu6ynaXa0XdsgFWTz onBbhGvoJSE2y3PbTy4k ZBKtwPA2qWG7yZ2l CuHpUxV0GOorK702IySh aWCsVnqzM72rQ6VmcSE+ SLZhCor1IVKlrBuiXK2g M0GhJFCwnzkfxOKb rBxsQP2rDZKzyvpkLBOa hQ1rBYDaQ6f1XkKoBoH8 YFveE1NiQULuanvfIj25 dP8lIdXiAsZ1JHqv D4EobkW4LIUpvYOcKAnz ICT4C10my2G1HGOqSZSt ZQJ7jDJ3sV3oyGkhvdhz bGVmdDsgdmVydGlj TAsuTTqiY686YGUtyRpj PkNvZGluZyBEYXRlOiAg MDMvMDUvMjAyNDwvdGQ+ BQYtSMB4gRdoPXOw tBTzLErjCv1tuGvqvFlf EN0dFKAjhzoeWQVznC6d UCUpaZLajNijKF5tTMLn ztjju490LyVrBUA4 GCKwpVOqB6PdwB5tWtOp KPZpEBXxS7WysTNoZCzl E816RZmxZjY4PFZdfgQv G6EtBHHcwCqoBhR2 p3A8Hb6Ow5HsdghoU3La gITmUbKeWtvnVQv9T2Qz PjwvdHI+GI00WRIsXA59 HSv8BLO9mEojGSie TTAzX7EyjC2sNyZpYISu ZGRkOyc+PHRhYmxlIHdp ZHRoPScxMDAlJyBzdHls TA5jAh6dOACbVPVh oIzvnJInXfUto0mnJBDy YKvsCY5xyNruR1VrrDV3 YATgl3m2Sh65F18iB7Bt dXA+KBKjdWR6sLZ4 yR5oWjXkOdE7LKmnX229 DdWodDBxIngbg5nre4rx rFz3VlV9TRPdtbMxrYvd SJA3m8PeDu13Y37v IHdpZHRoPSIxNSUiIHZh zKdkfi5ewD0kSe0+PGNv bQP3cEH4xW6zAjZqHtJ2 ELrpH965RmQhxAVy Ssmuv6ztu1zlfHv4ZySv CVHvtwNriSwaUPU5x1Lj Az89W2EtiSgud8YsEjm5 xz15hVFhi0K3dHW1 P9NlCJVmkwkhkXGbnFoc WU2hFZKohhwpSADvrO5d REFfV5s4FiSmPnS6LNri Q0EumaZ9TWIbyKOe YIGciFEThO6tfglie6fo klqqTeRxHRZxPWo7DXy7 YMRerApnWoIcJKY4LbQ7 LNM1qCIowH6ksSld nxcszZ2sGtv+QDS0xAMt oDJMAZ0vDuaaeEA+PHRk GWT7sLucTMkzQPXgrA9k OASlM2r0KrIsWpN9 GImxN7JnsrY0KRLxdHYz REQhmCSBzM6pnibya6yv qsumDdEkWKPkPXa5PXs8 LWFsaWduOiBsZWZ0 LoT3AUP6bLFgiR7ghFdd cjkagR4oHsc+QmlydGgg VMK2HAq7S2IhSdn9KGQg yLjiLY7amPZgCViw Cn3ckLvdpOzhMQ4eYXNm lmocy729RkQtk6taTUWu uBHbOHpxJWU5D35fw6O6 ZZXoDPHkCLL1gEV8 wE1pqIxavajryBTajBty jhOnhWkeIAojOHhnA059 GJSydTstGhSuOUk5F2Bo Wvv4BRPnfHvaXQ7b aIOaOLmhLs6bsYkwrAzg WY1uSMLywlanc744CcQj l2qmIWRlqLWcSIimGTS8 M08bp9Z2SHEuSZRo MQT9nVH1rJ3fsQczhgcd bGVmdDsgdmVydGljYWwt EYxiR440XPGezJhhHwRr xXb7P0YeTrs3MVFh sBxaAC6ylDHkQRxrVn6c sAsihYdbPR4hARXuiaul j858KvVrv5mnXZIfpTUo RFdnYMK5Y39px1F0 NUFrGQJhOJJ8uLE8aT3j bGlnbjogbGVmdDsgdmVy zZtvEWbwDJxkD399OJHk cDsnPlBhdGllbnQg WNjoZQn8E8QpSeahzVL+ PK43KBQeIO55dQAfnCKd o8azoCe2YgPgXNQgGPM9 qKuzXOsos7BqFIGm O72cvOFbs3W1LLKmjXqo oHVeXsPpkKV5sF8dFFuf crahd0gfzsdaRsjjj2vn jc83rH70F08xRSbr ZHRoPSIzMCUiIHZhbGln jq5rxI8cCb3+PGNvbCB3 nGX8dQ7mSDXyNoQ2ORby S393ZuSauWRaBzez t5xdn8fwgYe3YuL4IGIi afHgcGmhXTQ0i4YsZt67 T14lITjaLJYhTVUyGXRh AERzsVkeiz9zhJ1r Ii8+WGVjvLP4yGP2xX5w MhLeRqK6ZGscB810NxBt qJJoDnyyE23dV0GgfCB+ ZJQdOaq0IDGtwNkb BG3tcUNlULyrPf5vQBX4 ThGgDwZaWLedJ7LiSYRj kftccupvsVA2ORYjWBHo jE36Hh8uqMriPFDp pWBXyX1dohrte8cvardp XkKmAJFeXUz8POs7FCUh eSfjVtVnPQI2HcK3LFP3 xZZjmO5pmOltkixe yW1zN6VeFHBowudxPo90 lH4pGbVmBpO4ZCgiQyv+ A6SFWatzHL8AQ5fALOfj SzwvdGQ+PHRkIHN0 tYumTVcdUSAmzS2dYEJg U7s7XcIsDlF1ZPptR7Df YZEihhugEe41cN2cQxGr IeT9PWauT1EwfbR5 IJEhgDWfMKdxDRO8V03g t8E0CPUiQRIiQPB6sZV2 mY2suMdlvhwutJYdfWma dmVydGljYWwtYWxp K954WCLxxGjsDdAsToU9 DlJ2ObD0A7ChRin3EIYl qVcvBH0leSBqCUxzGe5k aAnqqGwnFE0wQOSo hwieBEEkyJ5eDCVfnKVy gBmnYL8rXOMjawmwd159 DtNaHHC5VKIblBNhD4Md kQ1wOiKoEQIrSQQk J9HqkYOyEDeeT219EKom UtR7GKCvdvXjG4CxIFMt mAndAiS1w9V0Qj91TLZN ZWFyczwvdGQ+PHRk ZUT2tIrfYKvyTDSxvH7l DCBjJ7g8HmJqIkS0BEbk F9QkUCLvxmacBi63aK5g TqSdCuN9HTfmO6Uk ylO9FHQpyGVtAVthFFU0 D93um6D2ZJSwRUXtYLL5 rTA0eF9viAnnfzgatYFz dDsgdmVydGljYWwt QRcmY728NJEzwBruEo3N EGU2M6GhImg0FWHxdEtq BR6efTYaDWngAa1mqAxq gMhlUF2hORUhrwab ZYVyuY0cKTDjoMShrHjj YX9eWFMzrywhb350FoJf IUQ6TEPpjRFhM5RveD2q JbYuGXWjKNEiD7As fYDpSJuxO029MFbtPwG9 JDUjhvSxU0TeNGWmeTnw SbM8g2Q1Rs2UURyzvJE+ JE48kx10B2LmFnnu Jrx8ADKcJMW9cYI3nD1v CTVfKWddy9C3sQU4F9Av csXizw1bl4krOUApPHwq X00ymGAwu9W6KKEa jWY4MMUszVgaOoXtwB47 Oyc+DMDkhUftr6VsRjbb m1yry8pbzRj5OwVnUOSs ugSfuOqfOLV5h3Gq Nn53W15iNPmdSSDpERWe GSFeNTIdbXjtka5noS3c Ii8+MNPypBH6mTC9eG5t WvGoYxW8ZFezH126 XjQtfIEvAsmeq8enx9yo pEj9NyInDJNrfqVqlDsl RHK7l8UfMx60B4VfiOnb v8LhTgk7fh86fKLq d1H7yMQ2E7EpEAWsvndf aXUszLhiEF9tSJPjkcbm GDVqzN4zRLYmX9j5GtFl WmA0NQsmF5EeurI2 HRUxsVMxTDJhdNJHyU1r pxczc9wpmnojNvMpPEBb TVo0VZj9WVVkfFygRoWu AML4SlZ2EQS2jBRc fE5taAsolctlhM0pFmu+ RZz8o4rruOMrKF4anQT3 GL02RY18sZHjr9B5sHB3 P0QfFXYmhavobnxh bJX2NLWvOYUxjD41Po3o xCvdZe0nYSPeOIT2DLBq dRQuP9UfdI6kKjUoUDFg OAMyA3BxyABmGPfs O094ISlqIhA5KUGfbsUe V3TtYFKfjNxfOrB4w8A1 Iu9QPW47DY83TV35nIWv n7Z8lTP4Q6DkHBHi engardstlRS0WOBeRGOl kM12Xj2vbHijZm2iJBSi MGB8UCXrzIJlQ7KikP1a TlEaXYEcAYYuU9Hw sAOdPKhqA868HEwwFsO4 AIXrvhBjQ3NnINHlwYwn VdF0s0R6Vv0MHv94GM31 ST77eCIkf9I3lTH2 E3IvSQBontyqjiqioEW8 JSIdDFWfpV42Fp3yvFuj Hz9xUFGxYXE9VMWcoKSs K5PveJ0oKsTbAEGv KDVeP0DneESgOEfzZ300 XGphPyH7LJHpyjAqK8Nx KBUhxCnfTzS8g0Z5Jx1N XVlgcfb6U3FxDapd dHI+EH94CGUqQO39vSWx qCYts5qjnDc8LlTlQVAd ZQO1rXusKCgcc2YxKXAd K69tjPFyo9L1SPIv bGx (more content not included)... [facility] Wound Care Noteon 07-08-2023 Wound Care Note [id number]# 1.00OT[facility] Wound Cultureon 07-03-2023 Wound Culture rt calfKAREN, 07-01-23, 15:40 Heavy growth of Staphylococcus aureus [...] <=0.5/9.5 Verified Vanc S 2 Verified [facility] Comment on above: Performed By: #### [id number] ####[facility] (DEFAULT)[address] [place] [address] Ambulatory Patient Summaryon 06-26-2023 Ambulatory Patient Summary [address], [address] - Visit Summary For YRN RICARDO Age: 63 years Sex: MALE : 1960 Address: [address] [place] [address] [address] [place], [address] Home: Work: -- Primary Care Provider: LESLY MELCHOR MD Race: White Ethnicity: Not or Language: Tog[place]ese Health Plan: 1?[facility], 2?[facility]ICA[facility], 3?[facility] Reason for Visit: Three month follow [...] contact the Mental Health & Recovery Board [facility] 26/11 Crisis Hotline -Text 4HOPE to [phone]. Follow-Up Information With: Address: When: KAREN ZAPATA, LESLY To [facility] [address] [place] [address]/ [address] [place] [address] [id number] In 3 months Future Appointments [facility] Appt. Date: 09/25/2023 1:00 PM Scheduled Provider: Lesly Melchor MD [address] [place] [address] [place], [address] Future Orders No future orders Additional Goals [...] Dosin.000 kg Body Mass Index: 50.14 kg/m2 [place] Body Weight Calculated: 84.047 kg BSA Measured: [...] TABLET BY MOUTH ONCE DAILY nebulizer machine ([facility]) 0 refills authorized Instructions: one [...] is caused (more content not included)... [facility] Patient Handouton 06-26-2023 Patient Handout Infectious [...] and keep track of them. ? Take txco-rbf-ialpcie and prescription medicines only as told by your health care provider. ? If you were prescribed an antibiotic medicine, take or apply it as told by your health care provider. Do not stop (more content not included)... [facility] Outside Recordson 05-15-2023 Outside Records [id number] #1.00OT[facility]IFF [facility] Device InterrogationOrdered By: Rosalind Murrieta on 05-14-2023 [facility] Radiology Study observation (narrative) [facility] Ambulatory Patient Summaryon 03-26-2023 Ambulatory Patient Summary [address], [address] - Visit Summary For YRN RICARDO Age: 62 years Sex: MALE : 1960 Address: [address] [facility] [address] [place], [address] Home: Work: -- Primary Care Provider: KAREN ZAPATA, LESLY To Race: White Ethnicity: Not or Language: [place]ese Health Plan: 1?[facility], 2?[facility], 3?[facility] Reason for Visit: [...] alcohol and/or drug addiction problems; contact the [facility] 26/11 Crisis Hotline -Text 4HGGT to [phone]. Follow-Up Information With: Address: When: KAREN ZAPATA, LESLY To [facility] [address] [place] [address]/ [address] [place] [id number] In 3 months Future Appointments [facility] Appt. Date: 06/26/2023 9:30 AM Scheduled Provider: Lesly Melchor MD [address] [place] [address] [place], [address] Future Orders No future orders Additional Goals [...] 3 m2 Body Mass Index: 47.09 kg/m2 [place] Body Weight Calculated: 84.047 kg BSA Measured: [...] refills authorized nebulizer machine ([facility]) 0 refills authorized Instructions: one [...] Body mas (more content not included)... [facility] Patient Handouton 03-26-2023 Patient Handout Nutrition [...] numbers. This can be done either in [place] ([place] or metric measurements. Note that charts and online BMI calculators are available to help you find your BMI quickly and easily without having to do these calculations yourself. To calculate your BMI in [place] ([place] measurements: 1. Measure your weight in [...] for Disease Control and Prevention: www.cdc.gov ? [place] [employer]: www.heart.org ? National Heart, Lung, and Blood [place]: www.nhlbi.nih.gov Summary ? Body mass index (BMI) is a number that is calculated from a person's weight and height. ? BMI may help estimate how much of a person's weight is composed of fat. BMI can help identify those who may be at higher risk for certain medical problems. ? BMI can be measured using [place]ese measurements or metric measurements. ? BMI charts are used to identify whether you are underweight, normal weight, overweight, or obese. This information is not intended to replace advice given to you by your health care provider. Make sure you discuss any questions you have with your health care provider. Document Revised: 01/13/2020 Document Reviewed: 11/20/2019 [employer] Patient Education ? 2022 [employer]. [facility] Outside Recordson 03-25-2023 Outside Records [id number] #[facility] 03-18-2023 Outside Records [id number] #1.[facility] Outside Recordson 03-13-2023 Outside Records [id number] #1.[facility] Outside Recordson 02-11-2023 Outside Records [id number]# 1.[facility] POC Glucose FingerstickOrder ed By: Serafin Shearer on 06-02-2019 Glucose [Mass/Vol] 70 mg/dL Low 75 - 110 mg/dL [facility] Phone: Interpretation and review of laboratory results Abnormal [facility] Phone: Glucose [Mass/Vol] 74 mg/dL Low 75 - 110 mg/dL [facility] Phone: Interpretation and review of laboratory results Abnormal [facility] Phone: Glucose [Mass/Vol] 64 mg/dL Low 75 - 110 mg/dL [facility] Phone: Interpretation and review of laboratory results Abnormal [facility] Phone: Surgical PathologyOrdered By : Serafin Shearer on 06-02-2019 Surgical Pathology Report [id number] [facility] [address] [place] [address]. [place], [place] [address] SURGICAL PATHOLOGY CONSULTATION Patient Name: YRN RICARDO [facility] Rec: [id number] Path Number: [id number] Collected: 06/01/2019 Received: 06/01/2019 Reported: 06/02/2019 10:13 [...] with no areas of granularity or masses. Spectacle Truer sections 1cs. tm Microscopic Description Microscopic examination performed. [facility] Phone: POC Glucose FingerstickOrder ed By: Serafin Shearer on 06-01-2019 Glucose [Mass/Vol] 91 mg/dL 75 - 110 mg/dL [facility] Phone: Glucose [Mass/Vol] 96 mg/dL 75 - 110 mg/dL [facility] Phone: Surgical Pathologyon 020 Surgical Pathology (NOTE) [id number] [facility] [address] [place] [address]. [place], [place] [address] SURGICAL PATHOLOGY CONSULTATION Patient Name: YRN RICARDO [facility] Rec: [id number] Path Number: [id number] Collected: 06/01/2019 Received: 06/01/2019 Reported: 06/02/2019 10:13 [...] with no areas of granularity or masses. Spectacle Truer sections 1cs. tm Microscopic Description Microscopic examination performed. [facility] Comment on above: Performed By: #### P PPVS #### [facility] [address] [place] [address] Shop Welder: Karl Klein MD Nicotineon 05-23-2019 1-[id number]-[id number] 3 ng/mL [facility] Comment on above: Performed By: #### C BC, PT, BMP #### [facility] [address] [place] [address] Shop Welder: Karl Klein MD #### ANICOT #### [facility] [address] [place] [address] Shop Welder: Cameron Calderon MD Cotinine 5 ng/mL [facility] Comment on above: Result Comment: (NOT E) Cotinine is the major metabolite of nicotine and is a biomarker of passive exposure when present at low concentrations. This result may reflect passive exposure to a nicotine-containing product. The half-life of cotinine is approximately 16 hours. Cotinine is metabolized to 7-RJ-alflzmzv, which may persist for weeks after cessation from long-term or heavy use of nicotine products. Performed By: #### C BC, PT, BMP #### [facility] [address] [place] [address] Shop Welder: Karl Klein MD #### ANICOT #### [facility] [address] [place] [address] Shop Welder: Cameron Calderon MD Nicotine <2 [facility] Comment on above: Result Comment: (NOT E) [...] positive. Test developed and characteristics determined by [facility]. See Compliance Statement B: [email or web address]/ Performed by [facility], [address] [place] [address] [id number] [email or web address], Cameron Calderon MD, Lab. Director Performed By: #### C MARC VELARDE, BMP #### [facility] [address] [place] [address] Shop Welder: Karl Klein MD #### EVELIO #### [facility] [address] [place] [address] Shop Welder: Cameron Calderon MD Basic Metabolic Profon 05-19 (cont.) [facility] Comment on above: Result Comment: Aver age GFR for 50-59 years old: 93 mL/min/1.73sq m Chronic Kidney Disease: <60 mL/min/1.73sq m Kidney failure: <15 mL/min/1.73sq m eGFR calculated using average adult body mass. Additional eGFR calculator available at: http://www.Pedius.com/multiple_crcl_2012.htm Performed By: #### C SYD PT, BMP #### [facility] [address] [place] [address] [id number] Shop Welder: Karl Klein MD #### EVELIO #### [facility] [address] [place] [address] Shop Welder: Cameron Calderon MD Anion gap [Moles/Vol] 14 mmol/L Normal 9-17 [facility] Comment on above: Performed By: #### Kenrick BC, PT, BMP #### [address] [address] Shop Welder: Karl Klein MD #### ANICOT #### [facility] [address] [place] [address] Shop Welder: Cameron Calderon MD Calcium [Mass/Vol] 9.7 mg/dL Normal 8.6-10.4 [facility] Comment on above: Performed By: #### C SYD, PT, BMP #### [address] [address] Shop Welder: Karl Klein MD #### ANICOT #### [address] [id number] Shop Welder: Cameron Calderon MD Chloride [Moles/Vol] 98 mmol/L Normal 98-107 [facility] Comment on above: Performed By: #### C SYD, PT, BMP #### [address] [address] Shop Welder: Karl Klein MD #### ANICOT #### [facility] [address] [place] [address] Shop Welder: Cameron Calderon MD CO2 [Moles/Vol] 25 mmol/L Normal 20-31 [facility] Comment on above: Performed By: #### C SYD, PT, BMP #### [address] [address] Shop Welder: Karl Klein MD #### ANICOT #### [facility] [address] [place] [address] Shop Welder: Cameron Calderon MD Creatinine [Mass/Vol] 1.28 mg/dL High 0.70-1.20 [facility] Comment on above: Performed By: #### Kenrick VELARDE, PT, BMP #### [address] [address] Shop Welder: Karl Klein MD #### ANICOT #### [facility] [address] [place], [place] [id number] Shop Welder: Cameron Calderon MD GFR, Amer >60 Normal >60 [facility] Comment on above: Performed By: #### Kenrick VELARDE, PT, BMP #### [address] [address] Shop Welder: Karl Klein MD #### ANICOT #### [facility] [address] [id number] Shop Welder: Cameron Calderon MD GFR,non Amer 58 mL/min Low >60 [facility] Comment on above: Performed By: #### Kenrick VELARDE, PT, BMP #### [address] [address] Shop Welder: Karl Klein MD #### ANICOT #### [facility] [address] [place], [place] [id number] Shop Welder: Cameron Calderon MD Glucose [Mass/Vol] 80 mg/dL Normal 70-99 [facility] Comment on above: Performed By: #### Kenrick VELARDE, PT, BMP #### [address] [address] Shop Welder: Karl Klein MD #### ANICOT #### [facility] [address] [place], [place] [id number] Shop Welder: Cameron Calderon MD Potassium [Moles/Vol] 4.6 mmol/L Normal 3.7-5.3 [facility] Comment on above: Performed By: #### C BC, PT, BMP #### [facility] [address] [place] [address] Shop Welder: Karl Klein MD #### ANICOT #### [facility] [address] [place] [address] Shop Welder: Cameron Calderon MD Sodium [Moles/Vol] 137 mmol/L Normal 135-144 [facility] Comment on above: Performed By: #### C BC, PT, BMP #### [facility] [address] [place] [address] Shop Welder: Karl Klein MD #### ANICOT #### [facility] [address] [place], [place] [id number] Shop Welder: Cameron Calderon MD Urea nitrogen [Mass/Vol] 23 mg/dL High 6-20 [facility] Comment on above: Performed By: #### C BC, PT, BMP #### [facility] [address] [place] [address] Shop Welder: Karl Klein MD #### ANICOT #### [facility] [address] [place], [place] [id number] Shop Welder: Cameron Calderon MD BUN/CRE Ratio NOT REPORTED Normal 9-20 [facility] Comment on above: Performed By: #### C BC, PT, BMP #### [facility] [address] [place] [address] Shop Welder: Karl Klein MD #### ANICOT #### [facility] [address] [place], [place] [id number] Shop Welder: Cameron Calderon MD Staging: NOT REPORTED Normal [facility] Comment on above: Performed By: #### C BC, PT, BMP #### [facility] [address] [place] [address] [id number] Shop Welder: Karl Klein MD #### ANICOT #### [facility] [address] [place] [address] Shop Welder: Cameron Calderon MD [facility] 05-19-2019 Erythrocyte distribution width (RBC) [Ratio] 16.0 % High 11.8-14.4 [facility] Comment on above: Performed By: #### Kenrick BC, PT, BMP #### [facility] [address] [place] [address] [phone] Shop Welder: Karl Klein MD #### ANICOT #### [facility] [address] [place] [address] Shop Welder: Cameron Calderon MD Hematocrit (Bld) [Volume fraction] 42.0 % Normal 40.7-50.3 [facility] Comment on above: Performed By: #### Kenrick VELARDE PT, BMP #### [address] [address] Shop Welder: Karl Klein MD #### ANICOT #### [facility] [address] [place] [address] Shop Welder: Cameron Calderon MD Hemoglobin (Bld) [Mass/Vol] 13.2 g/dL Normal 13.0-17.0 [facility] Comment on above: Performed By: #### Kenrick VELARDE, PT, BMP #### [facility] [address] [place] [address] [id number] Shop Welder: Karl Klein MD #### ANICOT #### [facility] [address] [place] [address] Shop Welder: Cameron Calderon MD MCH (RBC) [Entitic mass] 28.4 pg Normal 25.2-33.5 [facility] Comment on above: Performed By: #### Kenrick VELARDE, PT, BMP #### [address] [address] Shop Welder: Kral Klein MD #### ANICOT #### [facility] [address] [place], [place] [id number] Shop Welder: Cameron Calderon MD MCHC (RBC) [Mass/Vol] 31.4 g/dL Normal 28.4-34.8 [facility] Comment on above: Performed By: #### C BC, PT, BMP #### [address] [id number] Shop Welder: Karl Klein MD #### ANICOT #### [address] [id number] Shop Welder: Cameron Calderon MD MCV (RBC) [Entitic vol] 90.3 fL Normal 82.6-102.9 [facility] Comment on above: Performed By: #### Kenrick VELARDE, PT, BMP #### [address] [address] Shop Welder: Karl Klein MD #### ANICOT #### [address] [id number] Shop Welder: Cameron Calderon MD NRBC Automated 0.0 per 100 WBC Normal 0.0 [facility] Comment on above: Performed By: #### C BC, PT, BMP #### [address] [address] Shop Welder: Karl Klein MD #### ANICOT #### [facility] [address] [place] [address] Shop Welder: Cameron Calderon MD Platelet mean volume (Bld) [Entitic vol] 9.8 fL Normal 8.1-13.5 [facility] Comment on above: Performed By: #### C BC, PT, BMP #### [facility] [place] [address] Shop Welder: Karl Klein MD #### ANICOT #### [facility] [address] [place], [place] [id number] Shop Welder: Cameron Calderon MD Platelets (Bld) [#/Vol] 199 10*3/uL Normal 138-453 [facility] Comment on above: Performed By: #### C BC, PT, BMP #### [facility] [address] [place] [address] Shop Welder: Karl Klein MD #### ANICOT #### [facility] [address] [place], [place] [id number] Shop Welder: Cameron Calderon MD RBC (Bld) [#/Vol] 4.65 10*6/uL Normal 4.21-5.77 [facility] Comment on above: Performed By: #### C BC, PT, BMP #### [address] [address] Shop Welder: Karl Klein MD #### ANICOT #### [facility] [address] [place], [place] [id number] Shop Welder: Cameron Calderon MD WBC (Bld) [#/Vol] 6.7 10*3/uL Normal 3.5-11.3 [facility] Comment on above: Performed By: #### C BC, PT, BMP #### [address] [address] Shop Welder: Karl Klein MD #### ANICOT #### [facility] [address] [place] [address] Shop Welder: Cameron Calderon MD PTon 05-19-2019 INR Coag (PPP) [Relative time] 1.1 {INR} Normal [facility] Comment on above: Result Comment: Therapeutic Range: Moderate Anticoagulant Intensity: INR = 2.0-3.0 High Anticoagulant Intensity: INR = 2.5-3.5 Performed By: #### C BC, PT, BMP #### [facility] [address] [place] [address] Shop Welder: Karl Klein MD #### ANICOT #### [facility] [address] [place] [address] Shop Welder: Cameron Calderon MD PT Coag (PPP) [Time] 12.0 s Normal 9.0-12.0 [facility] Comment on above: Performed By: #### C BC, PT, BMP #### [facility] [address] [place] [address] Shop Welder: Karl Klein MD #### ANICOT #### [facility] [address] [place] [address] Shop Welder: Cameron Calderon MD XR CHEST (2 VW)on [...] Shawanda Aragon MD 05/19/19 Final result Normal [facility] XR CHEST STANDARD (2 VW)Orde red By: Serafin Shearer on 05-19-2019 Negative chest. [facility] Work Phone: EXAMINATION: TWO XRAY VIEWS OF THE CHEST 05/19/2019 11:41 am COMPARISON: None. HISTORY: ORDERING SYSTEM PROVIDED HISTORY: preop sleeve gastrectomy Reason for Exam: Preop 06/01/19. no chest complaints Type of Exam: Initial FINDINGS: The lungs are without acute focal process. No effusion or pneumothorax. The cardiomediastinal silhouette is normal. The osseous structures are intact without acute process. [employer] Work Phone: Car, [employer] Incoming Radiant Results From [employer] - 05/19/2019 11:50 AM EST EXAMINATION: TWO [...] intact without acute process. IMPRESSION: Negative chest. [facility] Phone: Vital Signs Date Time Vital Sign Value Performing Clinician Faci lity 05-14-2023 11:28-0500 Body height 190.5 cm Olaf Sheae r [employer] Work Phone: [facility] 05-14-2023 11:28-0500 Body mass index (BMI) [Ratio] 48.25 kg/m2 Olaf Sheaer [employer] Work Phone: [facility] 05-14-2023 11:28-0500 Body weight 175.09 kg Olaf Sheae r [employer] Work Phone: [facility] 05-14-2023 11:28-0500 Diastolic blood pressure 80 mm[Hg] Olaf Cain [employer] Work Phone: [facility] 05-14-2023 11:28-0500 Heart rate 61 /min Olaf Sheae r [employer] Work Phone: [employer] 05-14-2023 11:28-0500 SaO2% (BldA) [Mass fraction] 95 % Olaf Sheaer [employer] Work Phone: [employer] 05-14-2023 11:28-0500 Systolic blood pressure 116 mm[Hg] Olaf Cain [employer] Work Phone: [employer] 06-02-2019 07:15-0500 Body temperature 99.3 [degF] Serafin Shearer MD Work Phone: [employer] Work Phone: 06-02-2019 07:15-0500 Diastolic blood pressure 59 mm[Hg] Serafin Shearer MD Work Phone: [employer] Work Phone: 06-02-2019 07:15-0500 Heart rate 62 /min Serafin Shearer MD Work Phone: [employer] Work Phone: 06-02-2019 07:15-0500 Respiratory rate 16 /min Serafin Shearer MD Work Phone: [employer] Work Phone: 06-02-2019 07:15-0500 SaO2% (BldA) [Mass fraction] 95 % Serafin Shearer MD Work Phone: [employer] Work Phone: 06-02-2019 07:15-0500 Systolic blood pressure 116 mm[Hg] Serafin Shearer MD Work Phone: [employer] Work Phone: 06-01-2019 09:10-0500 Body height 190.5 cm Serafin Shearer MD Work Phone: [employer] Work Phone: 06-01-2019 09:10-0500 Body mass index (BMI) [Ratio] 53.24 kg/m2 Serafin Shearer MD Work Phone: [employer] Work Phone: 06-01-2019 09:10-0500 Body weight 193.2 kg Serafin Shearer MD Work Phone: [employer] Work Phone: Encounters Encounter Date Encounter Type Care Provider Facility Start: 01-07-2024 ambulatory Melo Reno acility:[facility] Start: 12-24-2023 End: 12-24-2023 ambulatory LESLY MELCHOR MD Facility:[facility] Start: 12-11-2023 End: 12-11-2023 ambulatory Veda Barnhart Facility:[facility] Start: 11-22-2023 End: 11-22-2023 ambulatory Srinivas R Dolce Facility:[facility] Start: 11-15-2023 End: 11-15-2023 ambulatory Srinivas R Dolce Facility:[facility] Start: 10-25-2023 End: 10-25-2023 ambulatory Srinivas R Dolce Facility:[facility] Start: 10-17-2023 End: 10-17-2023 ambulatory PA Kelley Redmond Facility:[facility] Start: 10-10-2023 End: 10-10-2023 ambulatory PA Kelley Redmond Facility:[facility] Start: 10-04-2023 ambulatory Srinivas R Dolce Facility :[facility] Start: 10-02-2023 ambulatory Srinivas R Dolce Facility :[facility] Start: 09-26-2023 End: 09-26-2023 ambulatory PA Kelley eRdmond Facility:[facility] Start: 09-25-2023 End: 09-25-2023 ambulatory LESLY MELCHOR MD Facility:[facility] Start: 09-16-2023 End: 09-16-2023 ambulatory Srinivas R Dolce Facility:[facility] Start: 09-10-2023 End: 09-10-2023 ambulatory PA Kelley Redmond Facility:[facility] Start: 09-02-2023 End: 09-02-2023 ambulatory Srinivas R Dolce Facility:[facility] Start: 08-26-2023 End: 08-26-2023 ambulatory Srinivas R Dolce Facility:[facility] Start: 08-19-2023 End: 08-19-2023 ambulatory Srinivas R Dolce Facility:[facility] Start: 08-15-2023 End: 08-15-2023 ambulatory PA Kelley Redmond Facility:[facility] Start: 08-08-2023 End: 08-08-2023 ambulatory PA Kelley Ruy Facility:[facility] Start: 08-01-2023 End: 08-01-2023 ambulatory PA Kelley Redmond Facility:[facility] Start: 07-26-2023 End: 07-26-2023 ambulatory Srinivas R Dolce Facility:[facility] Start: 07-24-2023 End: 07-24-2023 ambulatory Srinivas R Dolce Facility:[facility] Start: 07-24-2023 End: 07-24-2023 ambulatory Srinivas R Dolce Facility:[facility] Start: 07-19-2023 End: 07-19-2023 ambulatory LESLY MELCHOR MD Facility:[facility] Start: 07-19-2023 End: 07-19-2023 ambulatory Srinivas R Dolce Facility:[facility] Start: 07-15-2023 End: 07-15-2023 ambulatory Srinivas R Dolce Facility:[facility] Start: 07-12-2023 End: 07-12-2023 ambulatory Srinivas R Dolce Facility:[facility] Start: 07-10-2023 End: 07-10-2023 ambulatory Srinivas R Dolce Facility:[facility] Start: 07-05-2023 End: 07-05-2023 ambulatory Srinivas R Dolce Facility:[facility] Start: 07-01-2023 End: 07-01-2023 ambulatory Srinivas R Dolce Facility:[facility] Start: 06-26-2023 End: 06-26-2023 ambulatory LESLY MELCHOR MD Facility:[facility] Start: 05-14-2023 End: 05-14-2023 Office outpatient visit 15 minutes Olaf GOOD Work Phone: [facility] Comment on above: Cardiac pacemaker (P rimary Dx); Morbid obesity with BMI of 40.0-44.9, adult ([facility]); Complete heart block ([facility]) Start: 05-14-2023 End: 05-14-2023 Clinical Support Ppc Pacer [facility] Comment on above: Cardiac pacemaker (P rimary Dx) Start: 03-26-2023 End: 03-26-2023 ambulatory LESLY MELCHOR MD Facility:[facility] Start: 02-10-2021 End: 02-11-2021 ambulatory CONSUELO DENNISATUL [facility] Start: 02-10-2021 End: 02-10-2021 Subsequent hospital visit by physician [facility] Comment on above: History of pulmonary embolism; Hx of deep venous thrombosis Start: 06-01-2019 End: 06-02-2019 Evaluation and management of inpatient SERAFIN SHEARER [facility] Start: 06-01-2019 End: 06-02-2019 Evaluation and management of inpatient Serafin Shearer MD Work Phone: [address] Ortho/Med Surg Comment on above: S/P laparoscopic sle ramon gastrectomy (Primary Dx) Start: 05-19-2019 End: 2019 Patient encounter procedure SERAFIN SHEARER [facility] Start: 05-19-2019 End: 05-21-2019 Subsequent hospital visit by physician Christian [facility] Comment on above: Arrived Procedures [...] Phone: Start: 06-02-2019 Glucose blood reagent strip eSrafin Shearer MD Work Phone: Start: 06-02-2019 INTAKE AND OUTPUT SERAFIN SHEARER Start: 06-01-2019 Glucose blood reagent strip SERAFIN SHEARER Start: 06-01-2019 Glucose blood reagent strip Serafin Shearer MD Work Phone: Start: 06-01-2019 PATIENT STATUS (DIRECT) SERAFIN SHEARER Start: 06-01-2019 Level iv surg pathology gross&microscopic exam SERAFIN PRIYANKA Start: 06-01-2019 Glucose blood reagent strip SERAFIN FOURLOUISE Start: 06-01-2019 Level iv surg [...] years Vaccine (2 of 2 - PPSV23) [facility] Phone: Start: 12-30-2025 Lipid panel Lipid screen [employer] Phone: Start: 05-14-2024 Adult [facility] Screening [facility] Start: 05-14-2024 Tobacco Screening [facility] Start: 07-30-2023 Lipid screen Lipid screen [facility] Phone: Start: 12-30-2021 Creatinine measurement Creatinine mo nitoring [facility] Phone: Start: 12-30-2021 Potassium monitoring Potassium monit oring [facility] Phone: Start: 12-30-2021 Thyroid stimulating hormone measurement TSH testing [facility] Phone: Start: 08-29-2021 End: 08-29-2021 Patient encounter procedure 08/29/2021 Office Visit Oncology Consuelo Delgadillo MD [address] [place] [address] [facility] Start: 03-24-2021 End: 03-24-2021 Patient encounter procedure 03/24/2021 Office Visit Pulmonology Teddy Fam MD [address] [address] [facility] Start: 02-14-2021 End: 02-14-2021 Patient encounter procedure 02/14/2021 Office Visit Bariatrics Mary Lou Power, [employer] [address] [place] [id number] [facility] Start: 01-04-2021 Influenza vaccination Flu vaccine (# 1) [facility] [email or web address] Phone: Start: 05-19-2020 Creatinine monitoring Creatinine mon itoring [facility] [employer] Phone: Start: 05-19-2020 Potassium monitoring Potassium monit oring [facility] [employer] Phone: Start: 07-30-2019 TSH testing TSH testing [facility] [employer] Phone: Start: 06-12-2019 End: 06-12-2019 Patient encounter procedure 06/12/2019 Office Visit Pulmonology Teddy Fam MD [address] [id number] [facility] Start: 06-09-2019 End: 06-09-2019 Patient encounter procedure 06/09/2019 Office Visit Bariatrics Serafin Shearer MD [address] [place] [address] [facility] Start: 06-01-2019 End: 06-01-2019 Admission to same day surgery center 06/01/2019 Surgery IP Unit Serafin Shearer MD [address] [place] [address] XI ROBOTIC LAPAROSCOPIC GASTRECTOMY SLEEVE, ENDOSEAL [facility] Comment on above: XI ROBOTIC LAPAROSCO PIC GASTRECTOMY SLEEVE, ENDOSEAL Start: 06-01-2019 Subsequent hospital visit by physician 06/01/2019 Hospital Encounter IP Unit Serafin Shearer MD [address] [place] [address] [facility] Start: 03-06-2019 Annual Wellness Visi t (AWV) Annual Wellness Visit (AWV) [facility] [email or web address] Phone: Start: 2012 Administration of varicella zoster vaccine Zoster (Shingles) Vaccine (1 of 2) [facility] Start: 2012 Colon cancer screen colonoscopy Colon cancer screen colonoscopy [facility] Phone: Start: 2012 Shingles Vaccine (1 of 2) Shingles Vaccine (1 of 2) [employer] Phone: Start: 2007 Screening for malign ant neoplasm of colon Colon cancer screen colonoscopy [employer] Phone: Start: 1981 DTaP,Tdap and Td Vaccines (1 - Tdap) DTaP,Tdap and Td Vaccines (1 - Tdap) [facility] Start: 1981 DTaP/Tdap/Td vaccine (1 - Tdap) DTaP/Tdap/Td vaccine (1 - Tdap) [employer] [facility] [employer] Phone: Start: 1980 Adult BMI Follow Up Plan Adult BMI Follow Up Plan [facility] [employer] [facility] Start: 1977 HIV screen HIV screen [employer] [facility] Work Phone: Start: 1977 HIV screening HIV screen [employer] [facility] Work Phone: Start: 1974 Depression Screening Depression Scre ening [facility] [employer] Start: 1973 DTaP/Tdap/Td vaccine (1 - Tdap) DTaP/Tdap/Td vaccine (1 - Tdap) [employer] [facility] [employer] Phone: Start: 1962 Hepatitis C screen Hepatitis C scree n [facility] [employer] Phone: Start: 1962 Hepatitis C screening Hepatitis C sc reen [employer] Phone: Start: 1962 Tobacco Counseling Tobacco Counselin g [facility] [employer] [facility] Home BIPAP or CPAP Home BIPAP or CPAP Respiratory Care Routine Daily until discontinued starting 06/01/2019 [employer] Phone: Comment on above: Daily until disconti nued starting 06/01/2019 Initiate Oxygen Ther apy Protocol Initiate Oxygen Therapy Protocol Respiratory Care Routine Daily until discontinued starting 06/01/2019 [employer] Phone: Comment on above: Daily until disconti nued starting 06/01/2019 Surgical Pathology Surgical Path ology Lab Routine ONE TIME for 1 Occurrences starting 06/01/2019 [employer] Phone: Comment on above: ONE TIME for 1 Occur rences starting 06/01/2019 Immunizations Immunization Date Immunization Notes Care Provider Bhavna lynch 12-16-2013 pneumococcal polysaccharide vaccine, [address]v 2 [email or web address] Payers Date Payer Category Payer Self-pay 2019 Unknown [employer] xxxxxxxxxxx 2019-Present [address] [place] [id number] xxxxxxxxxxx [id number] 2018 Medicaid [facility] [place] [facility] [place] [id number] 2018-Present [phone] [address] [place] [address] [id number] 2018 Medicaid [id number] 2018 Medicare [facility] [facility] [id number] 2018-Present [phone] [address] [place] [address] 1.2.840.205546.1.13.424.2.7.3. 081933.315 2018 Unknown [id number] 1960 Unknown [id number] 2.16.840.1.023724.3.579.2.175 1962 Unknown [id number] 2.16.840.1.436886.3.579.2.175 1962 Unknown [id number] 2.16.840.1.254319.3.579.2.175 1962 Unknown [id number] 2.16.840.1.216301.3.579.2.176 1962 Unknown [id number] 2.16.840.1.522628.3.579.2.1286 1962 Unknown [id number] 2.16.840.1.454219.3.579.2.128 1962 Unknown [id number] 2.16.840.1.670117.3.579.2. 1962 Unknown [id number] 2.16.840.1.255394.3.579.2. 1962 Unknown [id number] 2.16.840.1.329557.3.579.2. 1962 Unknown [id number] 2.16.840.1.300121.3.579.2. 1962 Unknown [id number] 2.16.840.1.640875.3.579.2. 1962 Unknown [id number] 2.16.840.1.381992.3.579.2. 1962 Unknown [id number] 2.16.840.1.805310.3.579.2. 1962 Unknown [id number] 2.16.840.1.276223.3.579.2. 1962 Unknown [id number] 2.16.840.1.873231.3.579.2. 1962 Unknown [id number] 2.16.840.1.793026.3.579.2. 1962 Unknown [id number] 2.16.840.1.336080.3.579.2. 1962 Unknown [id number] 2.16.840.1.757008.3.579.2. 1962 Unknown [id number] 2.16.840.1.803016.3.579.2. 1962 Unknown [id number] 2.16.840.1.610595.3.579.2. 1962 Unknown [id number] 2.16.840.1.564447.3.579.2. 1962 Unknown [id number] 2.16.840.1.168297.3.579.2. 1962 Unknown [id number] 2.16.840.1.294247.3.579.2. 1962 Unknown [id number] 2.16.840.1.473540.3.579.2. 1962 Unknown [id number] 2.16.840.1.805998.3.579.2. 1962 Unknown [id number] 2.16.840.1.237558.3.579.2. 1962 Unknown [id number] 2.16.840.1.599236.3.579.2. 1962 Unknown [id number] 2.16.840.1.253806.3.579.2. 1962 Unknown [id number] 2.16.840.1.400929.3.579.2. 1962 Unknown [id number] 2.16.840.1.062197.3.579.2. 1962 Unknown [id number] 2.16.840.1.845238.3.579.2. 1962 Unknown [id number] 2.16.840.1.975659.3.579.2. 1962 Unknown [id number] 2.16.840.1.183863.3.579.2. 1962 Unknown [id number] 2.16.840.1.288580.3.579.2. 1962 Unknown [id number] 2.16.840.1.272088.3.579.2.718 1962 Unknown [id number] 2.16.840.1.774256.3.579.2.8 1962 Unknown [id number] 2.16.840.1.764954.3.579.2.8 1962 Unknown [id number] 2.16.840.1.152831.3.579.2.8 1962 Unknown [id number] 2.16.840.1.388397.3.579.2.8 1962 Unknown [id number] 2.16.840.1.688658.3.579.2.8 1962 Unknown [id number] 2.16.840.1.591581.3.579.2. 1962 Unknown [id number] 2.16.840.1.988361.3.579.2.8 1962 Unknown [id number] 2.16.840.1.460854.3.579.2.718 Unknown [id number] 2.16.840.1.932573.3.579.2.531 Social History Date Type Detail Facility Start: 02-08-2021 End: 04-18-2022 Tobacco smoking status [facility] Never smoker [facility] Start: 02-08-2021 Tobacco use and exposure Former user [facility] [employer] Phone: End: 01-17-2021 History of tobacco use Chews Tobacco [facility] [employer] Phone: Start: 02-08-2021 End: 05-14-2023 Alcohol intake Ex-drinker (finding) [facility] Phone: Start: 07-25-2018 History SDOH Alcohol Frequency 1 [facility] Phone: Start: 1960 Sex Assigned At Not on file [employer] Phone: Start: 04-18-2022 Tobacco use and exposure User of smokeless tobacco [facility] [employer] [facility] Start: 06-16-2020 End: 05-14-2023 [facility] of [facility] Start: 06-16-2020 End: 05-14-2023 Tobacco use panel [facility] [employer] [facility] Housing Instability Unknown [facility] [employer] [facility] Medical Equipment Procedure Code Equipment Code Equipment Origin al Text Equipment Identifier Dates Ld Pcng Ingevity + 52cm Mri - [id number] - [id number] Start: 08-25-2020 Cardiac pacemaker, device (physical object) ([id number]) Pcmkr Accolade Mri Dr Cade - [id number] - [id number] Start: 08-25-2020 Goals Date Patient Goal Desired Activity /State Personal health goal Comment on above: Formatting of this n ote might be different from the original. Evaluation of progress towards goal: home self care Clinical Notes 06-02-2019 to 12-17-2023 [facility]/14/[facility]23 11:30 AM Juanita Hopper MD - 05/14/2023 11:00 AM Starr Sanon RN - 06/02/2019 7:24 AM Serafin Jesus MD - 06/02/2019 6:43 AM EST Note Date & Type Note Facility 12-17-2023 Note Entered by Yousuf Pierce CMA on December 17, 2023 09:09:22 EDT From: Ana Pierce CMA To: [facility] Sent: 12/17/2023 09:09:22 EDT Subject: Medication Management Approved with modifications: Durable Medical Equipment for Prescription (CETIRIZINE 10MG TAB 10 Tablet) TAKE 1 TABLET BY MOUTH EVERY DAY Qty: 30 tab(s) Days Supply: 30 Refills: 10 Substitutions Allowed Route To Pharmacy - [facility] Signed by Ana Pierce CMA --------- From: [facility] To: KAREN ZAPATA, LESLY To MD [...] 10 Substitutions Allowed Notes from Pharmacy: --------- [facility] 11-18-2023 Note Entered by Yousuf Pierce CMA on November 18, 2023 07:43:49 EDT From: Ana Pierce CMA To: [facility] Sent: 11/18/2023 07:43:49 EDT Subject: Medication Management Submitted: Complete:rivaroxaban (Xarelto 20 mg oral tablet) Signed by Ana Pierce CMA 11/18/2023 07:43:00 EDT Approved with modifications: rivaroxaban (XARELTO 20 MG TABLET 20 Tablet) TAKE 1 TABLET BY MOUTH IN THE EVENING WITH MEALS Qty: 30 tab(s) Days Supply: 30 Refills: 10 Substitutions Allowed Route To Pharmacy - [facility] Signed by Ana Pierce CMA Patient matched by Ana Pierce CMA on 11/18/2023 07:43:20 EDT --------- From: [facility] To: KAREN ZAPATA, LESLY To MD Sent: November 15, 2023 5:11:03 PM CDT Subject: Medication Management Due: November 16, 2023 12:10:53 AM CDT On Hold Pending Signature Dispensed Drug: rivaroxaban (Xarelto 20 mg oral tablet), TAKE 1 TABLET BY MOUTH IN THE EVENING WITH MEALS Quantity: 30 tab(s) Days Supply: 30 Refills: 10 Substitutions Allowed Notes from Pharmacy: --------- [facility] 10-17-2023 Note Entered by Yousuf Pierce on October 17, 2023 07:43:22 EDT From: Ana Pierce To: [facility] Sent: 10/17/2023 07:43:22 EDT Subject: Medication Management Submitted: Complete:levothyroxine (levothyroxine 150 mcg (0.15 mg) oral tablet) Signed by Ana Pierce 10/17/2023 07:43:00 EDT Approved with modifications: levothyroxine (LEVOTHYROXINE 150MCG TAB 150 Tablet) TAKE 1 TABLET BY MOUTH ONCE DAILY Qty: 30 tab(s) Days Supply: 30 Refills: 10 Substitutions Allowed Route To Pharmacy - [facility] Signed by Ana Pierce --------- From: [facility] To: KAREN ZAPATA, LESLY To [...] 10 Substitutions Allowed Notes from Pharmacy: --------- [facility] 07-24-2023 Note CLINICAL DATA: Venou s [...] Signature): Romulo Wright 07/24/23 10:38 a Technologist: [facility] 07-08-2023 Note Entered by Yousuf Pierce on July 08, 2023 07:59:35 EST From: Ana Pierce To: [facility] Sent: 07/08/2023 07:59:35 EST Subject: Medication Management Not Approved: now on pulmicort fluticasone (FLUTICASONE PROP HFA 110MCG 110 Aerosol) INHALE 2 PUFFS BY MOUTH TWICE DAILY *RINSE MOUTH AFTER USE* Qty: 12 gm Days Supply: 30 Refills: 10 Substitutions Allowed Route To Pharmacy - [facility] Signed by Ana Pierce --------- From: [facility] To: KAREN ZAPATA, LESLY To MD Sent: July 05, 2023 4:32:01 PM EVENTS ASSOCIATE Subject: Medication Management Due: July 06, 2023 12:09:30 AM EVENTS ASSOCIATE On Hold Pending Signature Drug: fluticasone (Flovent [...] 10 Substitutions Allowed Notes from Pharmacy: --------- [facility] 05-28-2023 Note Entered by Yousuf Pierce on May 28, 2023 07:49:21 EST From: Ana Pierce To: [facility] Sent: 05/28/2023 07:49:21 EST Subject: Medication Management Submitted: Complete:oxyBUTYnin (oxybutynin 10 mg/24 hr oral tablet, extended release) Signed by Ana Pierce 05/28/2023 07:49:00 EST Approved with modifications: oxyBUTYnin (OXYBUTYNIN ER 10MG TAB 10 Tablet) TAKE 1 TABLET BY MOUTH DAILY Qty: 30 tab(s) Days Supply: 30 Refills: 10 Substitutions Allowed Route To Pharmacy - [facility] Signed by Ana Pierce --------- From: [facility] To: KAREN ZAPATA, LESLY To MD Sent: May 27, 2023 5:22:40 PM EVENTS ASSOCIATE Subject: Medication Management Due: May 28, 2023 12:05:03 AM EVENTS ASSOCIATE On Hold Pending Signature Drug: oxyBUTYnin (oxybutynin 10 mg/24 hr oral tablet, extended release), 1 tab(s) PO Daily Quantity: 30 tab(s) Days Supply: 0 Refills: 10 Substitutions Allowed Notes from Pharmacy: Dispensed Drug: oxyBUTYnin (oxybutynin 10 mg/24 hr oral tablet, extended release), TAKE 1 TABLET BY MOUTH DAILY Quantity: 30 tab(s) Days Supply: 30 Refills: 10 Substitutions Allowed Notes from Pharmacy: --------- [facility] 05-14-2023 History of Present illness Narrative Yrn Delgado Ricardo Date of visit: 05/14/2023 Date of : 1960 Age: 62 y.o. Patient Active Problem List Diagnosis Complete heart block ([facility]) Abnormal stress test Cardiac pacemaker Morbid obesity with BMI of 40.0-44.9, adult ([facility]) Bilateral primary osteoarthritis of knee Blister of [...] PE, chronic lymphedema, complete heart block s/p [employer] dual-chamber pacemaker implanted 2020. He is here today for routine evaluation. Patient states he has been doing well since last office visit. He denies chest pain, shortness of breath, palpitations, fatigue. Patient enjoys fishing with his grandson. Past Medical History: Diagnosis Date Anxiety COPD (chronic obstructive pulmonary disease) ([facility]) Depression Hypertension Hypothyroidism Sleep apnea No data recorded No data recorded No data recorded Past Surgical History: Procedure Laterality Date Cardiac catheterization N/A 08/23/2020 Performed by Brian Hilario MD at [facility] Coronary angiogram and left ventricular gram/pressure N/A 08/23/2020 Performed by Brian Hilario MD at [facility] EP - Device-PPM Left [...] Morbid obesity with BMI of 40.0-44.9, adult ([facility]) 3. Complete heart block ([facility]) Intermittent complete heart block s/p [employer] dual-chamber pacemaker implanted 2020 Device check [...] MELCHOR MD Referring Physician: Lesly Melchor MD [address] [place] [address] LATISHA Harman 05/14/23 1202 documented in this encounter [facility] 05-14-2023 History of Present illness Narrative I agree with the findings in the scanned document. documented in this encounter [facility] 06-02-2019 History of Present illness Narrative [...] Intake/Output Summary (Last 24 hours) at 06/02/2019 0662 Last data filed at 06/02/2019 0457 Gross [...] NICHOLS 1:03 PM documented in this encounter [facility] Phone: Evaluation note Diagnosis History of pulmonary embolism Personal history of pulmonary embolism Hx of deep venous thrombosis Personal history of venous thrombosis and embolism documented in this encounter [facility] Phone: evaluation note* Diagnosis S/P laparoscopic sleeve gastrectomy- Primary documented in this encounter [facility] Phone: evaluation note* Diagnosis Cardiac pacemaker- Primary Cardiac pacemaker in situ Morbid obesity with BMI of 40.0-44.9, adult (CMS-HCC) Complete heart block (CMS-HCC) Atrioventricular block, complete documented in this encounter [employer] System[facility] note* Diagnosis Cardiac pacemaker- Primary Cardiac pacemaker in situ documented [facility] encounter [facility] [facility] Instructions* Stewart Golden DO - 06/02/2019 Discharge Instructions for Bariatric Surgery You had a Laparoscopic Sleeve Gastrectomy (88029) to treat obesity. Recovery from this surgery [...] scheduled appointment, please call the office at [phone]. Call Your Doctor If Any of the [...] sent through Care Everywhere. * Enoxaparin (Lovenox) (Togolese) * enoxaparin (Togolese) [facility]: InstructionsNot on filedocumented in this encounter [employer] SystemInstructionsNot on filedocumented in this encounter [facility] Summary Purpose Family History No Family History Records FoundNo Family History Records FoundNo Family History Records FoundNo Family History Records FoundNo Family History Records Found Advance Directives No Advanced Directives Records FoundDocuments on File Type Date Recorded Patient Spectacle Truer Expl anation ACP-Advance Directive ACP-Power of Machine Tool Designer Latest Code Status on File Code Status Date Activated Date Inactivated Comments Full Code 06/01/2019 12:33 PM 06/02/2019 3:05 PM Documents on File Type Date Recorded Patient Spectacle Truer Expl anation Advance Directives and Living Will Power of Machine Tool Designer Documents on File Type Date Recorded Patient Spectacle Truer Expl anation Advance Directives and Living Will Power of Machine Tool Designer Latest Code Status on File Code Status Date Activated Date Inactivated Comments Full Code 06/01/2019 12:33 PM Reason for Referral Status Reason Specialty Diagnoses / Procedures Referred By Contact Referred To Contact Pending Review Radiology Diagnoses History of pulmonary embolism Hx of deep venous thrombosis Procedures VL DUP LOWER EXTREMITY VENOUS BILATERAL Consuelo Delgadillo MD [address] [place] [address] Specialty Diagnoses / Procedures Referred By Contac t Referred To Contact Diagnoses Cardiac pacemaker Procedures Device Interrogation KatyhristOlaf dalton, CLAY BURNER-[employer]SEUR [address] [place] [address] Referral ID Status Reason Start Date Expiration Date V isits Requested Visits Authorized [id number] Pending Review 05/14/2023 05/13/2024 1 1 Additional Source Comments (unrecognized sect ion and content) No Status Records FoundNo Status Records FoundNo Status Records FoundNo Status Records FoundNo Status Records Found INFORMATION SOURCE (unrecogn ized section and content) DATE CREATED AUTHOR 07/14/2019 [facility] DATE CREATED AUTHOR AUTHOR'S ORGANIZ ATION 02/11/2021 [facility] DATE CREATED AUTHOR AUTHOR'S ORGANIZ ATION 05/19/2023 [facility] DATE CREATED AUTHOR AUTHOR'S ORGANIZ ATION 01/07/2024 [facility] DATE CREATED AUTHOR AUTHOR'S ORGANIZ ATION 01/19/2024 [facility] Reason for Visit (unrecogniz ed section and content) Status Reason Specialty Diagnoses / Procedures Referred By Contact Referred To Contact Pending Review Radiology Diagnoses History of pulmonary embolism Hx of deep venous thrombosis Procedures VL DUP LOWER EXTREMITY VENOUS BILATERAL Consuelo Delgadillo MD [address] [place] [address] Status Reason Specialty Diagnoses / Procedures Referre d By Contact Referred To Contact Diagnoses Obesity OBESITY, HYPERTENSION, COPD, HYPOTHYROIDISM, LIPODEMIA Procedures SD LAP, DHARMESH RESTRICT PROC, LONGITUDINAL GASTRECTOMY XI ROBOTIC LAPAROSCOPIC GASTRECTOMY SLEEVE, ENDOSEAL Serafin Shearer MD [address] [place] [address] [facility] Reason Comments Device Check Reason Comments Device Check Care Teams (unrecognized sec tion and content) Bit Grinder Relationship Specialty Start Date End Date Lesly Melchor MD [address] [place] [id number] PCP - General 02/10/16 Bit Grinder Relationship Specialty Start Date End Date Lesly Melchor MD [address] [place] [id number] PCP - General 02/10/16 FOR RECORDS PERTAINING [...] ON THE PRIMARY CLINICAL RECORDS. [facility], [facility]. provides no warranty or guarantee of the accuracy or completeness of information in this document.
[2024-01-29 14:58] VITALS: BP 136/70; PULSE 69; O2SAT 95
== END 2024-01-29 15:06 | disposition home or self-care (01) ==
LOC: VC 14:07
PROVIDERS: PCP Radiology Diagnostic Radiology; Visit Provider Radiology Diagnostic Radiology
DX: I80.03 Phlebitis and thrombophlebitis of superficial vessels of lower extremities, bilateral (principal)
CPT/HCPCS: 36466

== ENCOUNTER 2024-02-05 14:18 | Outpatient (OUT) | payer MEDICARE, MEDICAID, SELFPAY ==
--- NOTE | 2024-02-05 07:37 | VEINCLINIC_ITS ---
Vital Signs 02/05/24 14:00 Height 6 ft 3 in Weight 175 kg BMI 48.2 Varicose Veins Patient in today for follow up ultrasound of right lower extremity following treatment of Varithena/microfoam completed on 01/29/24. Trino Chaves MD personally performed the services described in this documentation, as scribed by Grecia Nielsen RDMS in my presence and it is both accurate and complete. Grecia Chaves RDMS, am scribing for, and in the presence of, Dr. Trino Israel and in the presence of the patient. medial thigh: bilateral, knee: bilateral, calf: bilateral, ankle: bilateral and munoz: bilateral burning and sharp 6 11 years Worsened in recent months: Yes standing and sitting bed rest, elevating extremities and compression stockings Reports heaviness, edema and leg edema History of lower extremity trauma: No Superficial thrombophlebitis: No Family history of varicose veins: unknown Has patient had previous lower extremity venous surgery: No Patient has previously received the following treatment(s) for lower extremity varicose veins: Reports none Does patient have a history of : not applicable Does patient intend to have future pregnancies: not applicable Has patient had lower extremity venous scan with relux testing: Yes Support hose used: Yes Problems walking or doing physical activity: Yes How does it affect you: 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 Grecia Chaves RDMS, am scribing for, and in the presence of, Dr. Trino Israel and in the presence of the patient. Status of ROS 10 or more systems reviewed and unremark able except as noted in history and below Cardiovascular Reports: edema and swelling of feet/ankles Musculoskeletal Reports: extremity pain and extremity swelling Integumentary/Breast Reports: redness, non-healing lesion and changes in skin color [facility] Medical History (Updated 12/31/23 @ 14:44 by Wild Slade) Thrombophlebitis of superficial veins of left lower extremity ?I80.02 - Phlebitis and thrombophlebitis of superficial vessels of left lower extremity (ICD-10) Phlebitis and thrombophlebitis of superficial vessels of lower extremities, bilateral ?I80.03 - Phlebitis and thrombophlebitis of superficial vessels of lower extremities, bilateral (ICD-10) Phlebitis and thrombophlebitis of superficial vessels of right lower extremity ?I80.01 - Phlebitis and thrombophlebitis of superficial vessels of right lower extremity (ICD-10) Non-healing lumpectomy wound ?T81.89XA - Other complications of procedures, not elsewhere classified, initial encounter (ICD-10) Other reconstructive surgery as the cause of abnormal reaction of the patient, or of later complication, without mention of misadventure at the time of the procedure ?Y83.4 - Other reconstructive surgery as the cause of abnormal reaction of the patient, or of later complication, without mention of misadventure at the time of the procedure (ICD-10) Cubital tunnel syndrome ?G56.20 - Lesion of ulnar nerve, unspecified upper limb (ICD-10) Pacemaker ?Z95.0 - Presence of cardiac pacemaker (ICD-10) Obesity ?E66.9 - Obesity, unspecified (ICD-10) Hypothyroidism ?E03.9 - Hypothyroidism, unspecified (ICD-10) Osteoarthritis ?M19.90 - Unspecified osteoarthritis, unspecified site (ICD-10) DVT (deep venous thrombosis) ?I82.409 - Acute embolism and thrombosis of unspecified deep veins of unspecified lower extremity (ICD-10) Arrhythmia ?I49.9 - Cardiac arrhythmia, unspecified (ICD-10) PVD (peripheral vascular disease) ?I73.9 - Peripheral vascular disease, unspecified (ICD-10) COPD (chronic obstructive pulmonary disease) ?J44.9 - Chronic obstructive pulmonary disease, unspecified (ICD-10) Asthma ?J45.909 - Unspecified asthma, uncomplicated (ICD-10) Lymphedema ?I89.0 - Lymphedema, not elsewhere classified (ICD-10) Venous insufficiency ?I87.2 - Venous insufficiency (chronic) (peripheral) (ICD-10) Varicose veins of bilateral lower extremities with pain ?I83.813 - Varicose veins of bilateral lower extremities with pain (ICD-10) Surgical History (Updated 01/29/24 @ 15:02 by Wild Slade) S/P sclerotherapy of varicose veins ?Z98.890 - Other specified postprocedural states (ICD-10) ?Z86.79 - Personal history of other diseases of the circulatory system (ICD- 10) S/P sclerotherapy of varicose veins ?Z98.890 - Other specified postprocedural states (ICD-10) ?Z86.79 - Personal history of other diseases of the circulatory system (ICD- 10) Status post ablation of incompetent vein using laser ?Z98.890 - Other specified postprocedural states (ICD-10) H/O gastric sleeve ?Z90.3 - Acquired absence of stomach [part of] (ICD-10) Family History (Updated 11/06/23 @ 09:08 by Estefania Dhaliwal) Other Family history not known due to adoption Social History (Updated 11/06/23 @ 09:09 by Estefania Dhaliwal) Within the past year, how often did you have a drink containing alcohol: never Score interpretation: A score less than 4 is consistent with normal alcohol consumption. Smoking status: Never smoker Non-prescribed substance use: denies use Meds Home Medications and Allergies Home Medications ?Medication ?Instructions ?Recorded ?Confirmed ?Type albuterol sulfate 90 mcg/actuation 1 inh inhalation Q6H 11/06/23 11/06/23 History aerosol inhaler aripiprazole 20 mg tablet (Abilify) 20 mg PO DAILY 11/06/23 11/06/23 History cetirizine 10 mg capsule 10 mg PO DAILY PRN angioedema 11/06/23 11/06/23 History citalopram 20 mg tablet (Celexa) 10 mg PO DAILY 11/06/23 11/06/23 History fluticasone propionate 110 1 inh inhalation BID 11/06/23 11/06/23 History mcg/actuation HFA aerosol inhaler levothyroxine 150 mcg tablet 75 mcg PO DAILY 11/06/23 11/06/23 History (Euthyrox) lorazepam 0.5 mg tablet (Ativan) 0.5 mg PO DAILY 11/06/23 11/06/23 History oxybutynin chloride 10 mg 10 mg PO DAILY 11/06/23 11/06/23 History tablet,extended release 24 hr oxycodone-acetaminophen 5 mg-325 1 tab PO DAILY 11/06/23 11/06/23 History mg tablet (Endocet) rivaroxaban 20 mg tablet (Xarelto) 20 mg PO DAILY 11/06/23 11/06/23 History trazodone 100 mg tablet 50 mg PO DAILY 11/06/23 11/06/23 History zolpidem 5 mg tablet (Ambien) 11/06/23 History Allergies Allergy/AdvReac Type Severity Reaction Status Date / Time No Known Drug Allergies Allergy Verified 10/04/23 14:35 Exam Narrative Exam Narrative: Trino Chaves MD personally performed the services described in this documentation, as scribed by Grecia Nielsen RDMS in my presence and it is both accurate and complete. Grecia Chaves RDMS, am scribing for, and in the presence of, Dr. Trino Israel and in the presence of the patient. Constitutional Documenting provider has reviewed patient's vital signs: yes Common normals: oriented x3 Lymph Lymphatic: no lymphedema noted Cardio Common normals: regular rate Rate: regular rate Peripheral pulses: posterior tibial pulses present and dorsalis pedis pulses present Extremity Common normals: normal capillary refill General: edema Right lower extremity: upper leg and lower leg Left lower extremity: upper leg and lower leg Neuro Common normals: oriented x3 Results Imaging Venous US: Radiologist's impression: Chemically induced thrombus in multiple varicose veins in right leg. Trino Chaves MD personally performed the services described in this documentation, as scribed by Grecia Nielsen RDMS in my presence and it is both accurate and complete. Grecia Chaves RDMS, am scribing for, and in the presence of, Dr. Trino Israel and in the presence of the patient. Assessment and Plan Assessment and Plan (1) Phlebitis and thrombophlebitis of superficial vessels of right lower extremity: Plan Plan is to get extension from insurance for Varithena/microfoam before [facility]. Trino Chaves MD personally performed the services described in this documentation, as scribed by Grecia Nielsen RDMS in my presence and it is both accurate and complete. Grecia Chaves RDMS, am scribing for, and in the presence of, Dr. Trino Israel and in the presence of the patient.
[2024-02-05 14:00] VITALS: BMI 48.2
--- NOTE | 2024-02-05 14:23 | VEIN_ITS ---
Patient Name: YRN RICARDO MR#: [id number] : 1960 Exam Date: 02/05/2024 Ordering Doctor: DR MARCO LYNN M.D. RADIOLOGY REPORT PROCEDURE: VC EXT VENOUS RT LMTD COMPARISON: VC EXT VENOUS RT LMTD, 12/25/2023. VC EXT VENOUS RT LMTD, 11/20/2023. INDICATIONS: I80.01 - Phlebitis and thrombophlebitis of superficial veins right leg TECHNIQUE: Lower extremity nuñez scale and Duplex Doppler evaluation of the deep venous system from the inguinal ligament through the calf veins. FINDINGS: REGION: Right lower extremity. THROMBI: Negative for DVT. Chemically induced thrombus in multiple varicose veins in right lower leg. COMPRESSIBILITY: Non-compressible segments corresponding to thrombus FLOW: Areas of no flow corresponding to thrombus OTHER: Multiple patent varicose veins remain. CONCLUSION: Post ablation occlusion of treated right leg varicose veins. Residual incompetent varicose veins measuring up to 5.3 mm in diameter Dictated by: Trino Israel MD on 02/05/2024 at 14:59 Approved by: Trino Israel MD on 02/05/2024 at 14:59
--- NOTE | 2024-02-05 14:23 | VEIN_ITS ---
Patient Name: YRN RICARDO MR#: [id number] : 1960 Exam Date: 02/05/2024 Ordering Doctor: DR MARCO LYNN M.D. RADIOLOGY REPORT PROCEDURE: [facility] EST LMTD VEIN [facility]ENTER - OFFICE VISIT FOLLOW UP COMPARISON: [facility] EST LMTD, 01/09/2024. [facility] EST LMTD, 12/25/2023. PROGRESS NOTES: The patient reports no significant problems following micro foam chemical ablation of right leg incompetent varicose veins for the patient has worn his compression wraps. The patient has tried exercise. The patient did not require oral analgesics following the procedure. Physical exam demonstrates marked continued improvement in the patient's swelling and skin thickening. No active ulceration. No erythema or warmth to suggest cellulitis or thrombophlebitis. No bruising. Review of the ultrasound performed the same day demonstrates occlusive thrombus extending throughout the treated right leg incompetent varicose veins. Bilateral incompetent varicose veins remain. The patient expressed a desire to proceed with treatment of left leg varicose veins. VEIN/[facility] EST LMTD IMPRESSION: 1. Successful ablation of right leg incompetent varicose veins 2. Persistent bilateral incompetent varicose veins PLAN: Micro foam chemical ablation left leg incompetent varicose veins Nurse notes, history and physical were reviewed and confirmed, see attached forms. The nurse was present throughout the physical exam and consultation Dictated by: Trino Israel MD on 02/05/2024 at 15:18 Approved by: Trino Israel MD on 02/05/2024 at 15:20
--- OUTSIDE RECORDS SUMMARY | 2024-02-05 14:46 | XMS_ITS | CCD ---
Author Organization [facility] Inform ion Partnership [facility] Care Team Providers Care Pattern Carrier Name Role Phone SERAFIN SHEARER Referring Unavailable LESLY MELCHOR Primary Care Unavailable SERAFIN SHEARER Referring Unavailable LESLY MELCHOR Primary Care Unavailable SERAFIN SHEARER Admitting Unavailable SERAFIN SHEARER Attending Unavailable LESLY MELCHOR Primary Care Unavailable Lesly Melchor Primary Care Provider [phone] CONSUELO DELGADILLO Referring Unavailable LESLY MELCHOR Primary Care Unavailable Lesly Melchor Primary Care Provider Lesly Melchor MD Primary Care Provider [phone] LESLY MELCHOR Referring Unavailable LESLY MELCHOR Primary [...] Unavailable Dolce, Srinivas R Admitting Unavailable KAREN ZAPAAT, LESLY To Primary Care Unavailable KAREN ZAPATA, LESLY To Primary Care Unavailable KAREN ZAPATA, LESLY To Attending Unavailable KAREN ZAPATA, LESLY To Primary Care Unavailable PETER Redmond Attending Unavailable PETER Redmond Admitting Unavailable KAREN ZAPATA, LESLY To Primary Care Unavailable KAREN ZAPATA, LESLY To Primary Care Unavailable KAREN ZAPATA, LESLY To Attending Unavailable KAREN ZAPATA, LESYL To Primary Care Unavailable KAREN ZAPATA, LESLY [...] Propensity to adverse reactions to drug (disorder) [facility] Repository Medications Current Medications Medication Drug [...] hours as needed for pain. 0 Active ckg242895 200 actuat albuterol 0.09 mg/actuat metered dose [...] 07/23/2018 Active take 1 capsule by mo [facility] in the morning levothyroxine sodium [...] aftercare (1 source) Drug therapy finding; Translations: [MCFP (current) use of anticoagulants] Onset: 9 12-03-2018 [...] Lab - Other Lab Results [id number] #[email or web address] [facility] Coding Summaryon 12-25-2023 Coding Summary HTMLBase 64 VpsuzqtxMGm2aGw+PGhl YWQ+UU2RVDTvL49fcRXg hD8xI7BIHDrNRvwkMBDZ UZxUYvZnelEiKL9byOHz ZXJu IC8+PG2gQMScJrsdoQNo c8P5eIK5Y43gic0sGJge nAX6WIBsQdHcyfqmd4zb dCe0MUzuHvbhIfKu BMPksQ25LWE5fK59Uu42 rDObgUFde6earVs1VtDx LILnJLT4jWjzFUzui5Mv BZLwE53kxGZcc3P7 IGNvbGxhcHNlOyBlbXB0 gM0mWMaupafjs8htfimy Zab4ce27qHIag5K3vGM1 I4MugaZ5FTYutMIb GgynbEYJxS3vgxpwq8wd xwveZlSyURUeIQj3EYi3 JAIivKsbThBoTU47XCB8 FTRejnFeY6VvBMMx mXclWcE3t3N9Lv9IE8FY FwmdB9OXJLCYABlhhFY+ SM75lt05V2XfAkwiEpt9 IBFaDCG5iXH1bN2a RYYuMJzog2E7dIO2N1Rs meIcxu6pe3dkZLLlDEiw F59ufOTne2N7ETSxiJJ0 PTVdzHzmPyDsyF44 Oyc+LPZthGjgl9ZzOboc s5ahz8itsPx9PaqpLYJg upJumYhfEMG4l1OfFb9j QYOflJH6rPK9rL7q BfVkEcK3IBunP916PfCb tBDtKjujS44vZ7YakVP+ HRNpKpa4GQHhpAugZZ4a U6ExWANbarwerZXu dGmqVX6jFKNbdcfrPTDl eR2zHXNnT9y3QoMbWmJ1 APjpB2OiLWHnjudnTv71 vC4jPoAaNwO3NCpx X9VzlnF2WNCbiNSlWJgj EKG7L48li4K0MULpVVNs RAT4cHY0fJ0kcJecgdua bGVmdDsgdmVydGlj MKosKNqmL189STNpbWtj PkNvZGluZyBEYXRlOiAg MDgvMjEvMjAyNDwvdGQ+ YGJjAHZ4iVijNTFb tTBrNRioAa1vxOxzxPmn DN0mIHFhbrdtOUTzpJ8e ALGptHBbaJwmGQ8rIFOq tefch085BcNbGEQ9 FNBfiLZtZ1UsqB0lAnLc SZUzJWEzN8PwtZJbJXxd I084ZCpiTiH4YFTptcIu X8VkEQTfpUinSeJ2 u2A6Kd6Wj0UugihtT3Kb bCViAdOaFmuyHAi6Z9Fp PjwvdHI+MX48XUNxVZ22 KMa3FML6jAiuIIis TIHdF3LlaX0tDcWpPKBq ZGRkOyc+PHRhYmxlIHdp ZHRoPScxMDAlJyBzdHls YM1aEj5uLPZbUTJx dWosuMUcAcJqd8fiEKOt PStoNN5ivGjsF1YhsKC9 ILLco7v0Fp72W11pG3Vx dXA+RLTzgHC9gTT9 qV6tJlQiDyJ9TJepH868 WdKwpMRdEmxym4drj0fg qTo6MjE5BPPkvmVfhQfj PAL5h9XdIw03M94k IHdpZHRoPSIxNSUiIHZh nXyuuq6biR2qUn6+PGNv fNK3iPN6qA9qVvRnTaJ6 WGcmM113UaAitWNm Komsr6qys8tbuZy8KcMp OEZuwiNqgMarGES2v0Gs It15Y9GhfRpfq2KgOrv4 ae62dQVje5K5lFS1 S4BmQXVhtaenvAUmsVnb IN9xRUPhfnpbZTXviT9g ONDmU3o4DhShEfE4QWbl I2LeefB7IDWxaLWl MFSbyKNOpW7hrrbmy6fm svwoLxKhVYXpCFe4ABv0 IANblUmxHvEbEQN1MeZ7 UTS5xWTppJ6raKfe isxslE6dVsg+UGP6pRPb kVAXHR3eWgosmFN+PHRk EEG2lRfqYQjwRVWpjI5e LQXhZ7w7MwYvSlJ9 EGaeT1WzgmZ8YHGojMFh RNMusZVMcS8xghjqo2lf onyoWoQnZBDpWWe9QHr6 LWFsaWduOiBsZWZ0 YlA7YEL2pKGjrQ6djUpq rsktdT6iIga+QmlydGgg FOX6BQp5H4TePyh9DZCm dXdjKO0gmAFaULrg Yi1icJtsrEsoTJ4sZVSf hsshr466TaKcz6oqSCJv cBWsVBqaGVM7Y41vg4X4 WFQaOJFiURM4uWR4 dC3qiBxqxnpekDLdnKcv lyUosMbqRJtmHLxrW213 PSKhbQnqBhOuYQb7F3Sc Dqs0JQQukVgpGW3n pABjDRozGb4hqGfwdKqu SY9lYNUgfoike692JcTt m6neOIEdfAKrPIqgYFT2 G73ki7E6PXJlJHLp GNJ4iLT9qL1zeAzptsdb bGVmdDsgdmVydGljYWwt RZsmZ723DSWxhWmwKqCp nEb8A9NiUcu6TMUw vQedFJ5zkPClCChmSz8b zEejtHytAS9cYRMjnwyr y997EvHmw2mlWJAjmVZt UXfuIIQ2D03ru4S7 OFBoTBSxSXI2nYV9mD4j bGlnbjogbGVmdDsgdmVy bIluNEzbRSfhF546XCUy cDsnPlBhdGllbnQg STcaOWn6C8EmXquebFM+ BN63KRZhET27cQVjgQEq s9tjlXt7MiOkTZIgFGF7 kNmnTWkbn9FkEQQi K28pmNQas4C3RYQjrRob tCHgVmDppZQ9nI9sRHbq boodk0ixsmjeElfdu5dc jf43fX00D91uONns ZHRoPSIzMCUiIHZhbGln lc6rxJ1dHj2+PGNvbCB3 gLQ5fJ5nKEYlXcU9EVoa A909QmAwzJEeWpqp r5zba0dlhYp4ZeR6BVTs uiFutKipCSA4o3DySd93 L85sDBfmLTAvAPQjFLOo ISSkkYxqfz3ypO7f Ii8+YZLbjZT5aCR5nQ1f SgXcFxP1FQjtE060PwDn sNWxDlbkA97pX7AqlIM+ ZTPxEao5BPMgoZyd SD2qlUOiNSloOb8mHJU2 UcQmGyTjKCfpQ1NnYPVt lmkxbtfcjKK7XKPfAIZp qM32Tl2flXiwRSXw uXLFqC0pouqcj1jatqht BnLlVEGwXJt2PMc9UPAd eGnlCmGbFFR5ItD7ICZ6 vYVzoB5faGccjshj mS0cW3LbKNAgqixfVk22 aP0tSuDdTtR9JDmyPho+ M2CIJhraAV6TU7pFJBnw SzwvdGQ+PHRkIHN0 hEwaIPiuKSJwkX4mMRTp P9w5HcGrYwB6NEyqD4Zd MJDgzzrrGq52eI8mFgEc MoI6YEvcN2WukaM7 MCFmyCLxMWjjZOQ4W21e w4I3JOVmEXHrIXQ2nYW6 cH0drMevmxosjAVgiDha dmVydGljYWwtYWxp U756NPWktJggGxIaItT4 HrA8IpY0D4HhFot0YXTv wVskAX7mvOAfLZwjPf4w yAnktEynVQ8sIXOc ffcjVKOziF0xUYRzdSId bLncMU0nJPJovhied603 NiIoVFO9JPMifPBoL2Wf xV6tCsCrIUXdUVZe F7OpjUMeLHagY792JByp FkI8LQJplpBkG0TqPAJu qNiiXuV2p6L6Dy39BPTZ ZWFyczwvdGQ+PHRk YFM8eZdbQAirMNOpoC7u ROVwZ0d9OmOjAvN6JTnm Z2ZsMELwilitGx25tI9c JiIsJtU7HNxlS0Zv mxK1CFIejZZmPRbqOHJ2 S74rb3B3RUCbRNUoWVP1 rZV3yH0dkSwaoaqtrHUz dDsgdmVydGljYWwt BVtdF717XDLeoKebLs1K EJU3C6WyTkz7FIRblDlz PJ0ydMMeHIduTq4kuQex gYvwCH4nRDEwpkhh PMFozE1zTNUlcGUenTxg AF8fBNMzjsabf333EhLw YEM3LYFejJPvF4RutR2h NjByOJVmPBTpK9Jf oPFmUXbpI099FPerTlB4 FKUloiUdZ1IuCMHqbAma CbH5i3H9Tg8AMDelaQM+ PZ09ku78E4BtQgok Ehn3DGEqWCA4wOI5nC0e DOXwJOofy9G1aNX2Q9Zt foBhnv2dm2zrMRTrVRkv T77urZTaj7N8TBUf oSI1NWUveLvtChZilL12 Oyc+PMHfsEazx8EhBbel v0jei5cqqGp1WlWiDFDe clJdpGsxDJM3k5Rd Wu33Y55eVIzsDELlHXIt HNXeBGLktMtzgj9rtR7w Ii8+IAIwgRB2yQI6iP3n GtLnWwS1CQjpH232 EzOlzPDqKxkwm5tdt2bk pLl6MiVhNOPijsDphEpy BRS5v7UkSo01G4RujZbo a0CvNgg3kt63sHOv y6S7rWQ1P7QzEANbjkna lULhxMhzNK0wJUGmelzu PXTziQ6qLFHgH6g7FlVm XnX1HSvaD4YeyaM3 NYLxtROyDJZpcKPRxB5e lpebo1reogxlPsZbMCPo RTi7KGl1OBXufDjdDcPe IEE7CxJ3HTR0qDZf sQ1evEsyhntunV4qCph+ GJz5r3ndcLQuUP5dlMZ4 DH74NE16jSLdo9E3wJU4 T0GdPUSsmktsguex bST3TKXiINKzoJ36Rw9c dPevZk6gOCMdDGJ2NCBi sTSzP7GrjR0hCaLvLSDt OLIbB1XkfQQtMEgc M369GVzbDhR7TXEnxmPp Q3SoEMLgbVatNyJ9d6G1 Bn7BNK44TI38TY73oBHp a9F3hWZ5O8SiZWAo irkzvcllkOG9XKGjXCCe uH98Oq7gbCngVz9hRGBa XFM7WSLawYQrL6TugQ8y TyIzJEFtKSUfC6Ef uOXiGNxgK600PHplQpG3 UAAhbnKkT5PlOBUfgIeg IuI0k1S6Sc7NZj31ZO47 WY95cQRhz3T2pUO1 H5VqSAXvyggoeayqvQM6 CWAxZZJmpT00Zv8mxJaj Hd4fHSIaUMQ1NXGzjOKv P1JirM2tJvVvRAWf ZHHcF9QodQIhDRvbT039 VQxxDzT7WEBvgsFkX0Yj KIWtuVklHdX0u0P2Zo0V QRvdgwf8L9ViKpdu dHI+ZP83ULEgFQ60fWQm dFXvz8moqYs9IiVyVSEs QRG9cVslAEtae9FkETOz I47rvZZte8Z0QGIb bGx (more content not included)... [facility] Outside Recordson 12-25-2023 Outside Records [id number]# 1.00OTGTIFF [facility] Ambulatory Patient Summaryon 12-24-2023 Ambulatory Patient Summary [address], [address] - Visit Summary For YRN RICARDO Age: 63 years Sex: MALE : 1960 Address: [address] [place], [address] Home: Work: -- Primary Care Provider: LESLY MELCHOR MD Race: White Ethnicity: Not or Language: Citizen Of [place] Health Plan: 1?MEDICARE [facility], 2?MEDICAID [facility], 3?MEDICAID [facility] Reason for Visit: MEDICARE WELLNESS Prescription Information: If you have been given a prescription for narcotics, seek immediate medical attention if you have any difficulty breathing or any sudden status changes such as confusion and sleepiness. If you or anyone you know is experiencing suicidal thoughts, mental health, alcohol and/or drug addiction problems; contact the Mental Health [facility] Recovery [facility] 26/11 Crisis Hotline -Text 4HOPE to 509044. Follow-Up Information With: Address: When: LESLY MELCHOR MD [facility] [address] [place] [address]/ [address] [place] [id number] In 3 months Future Appointments [facility] Appt. Date: 03/26/2024 11:00 AM Scheduled Provider: Lesly Melchor MD [address] [place] [address] [place], [address] Future Orders No future orders Additional Goals [...] 2.99 m2 Body Mass Index: 50.01 kg/m2 [place] Body Weight Calculated: 80.425 kg BSA Measured: [...] tab(s)(650 Milligram) (more content not included)... Normal [facility] Patient Handouton 12-24-2023 Patient Handout Urology [...] help if (more content not included)... Normal [facility] .Auto Diff 12-11-2023 Auto Randall % 10 % Normal 1-12 [facility] Comment on above: Performed By: #### 7 [id number], [id number], [id number], [id number] ####[facility] (DEFAULT)[address] [place] [address] Baso Abs# 0.1 x10 Normal 0.0-0.2 [facility] Comment on above: Performed By: #### 7 076389, [id number], [id number], [id number] ####[facility] (DEFAULT)[address] [place] [address] Basophils/100 WBC (Bld) 1.4 % Normal 0.2-2.0 [facility] Comment on above: Performed By: #### 7 854749, 72585211, [id number], [id number] ####[facility] (DEFAULT)[address] [place] [address] 40115 Eos Abs# 0.4 x10 Normal 0.0-0.4 [facility] Comment on above: Performed By: #### 7 856411, 40513608, [id number], [id number] ####[facility] (DEFAULT)[address] [place] [address]107 Eosinophils/100 WBC (Bld) 8.0 % High 0.9-4.0 [facility] Comment on above: Performed By: #### 7 101137, 49688349, [id number], [id number] ####[facility] (DEFAULT)[address] [place] [address]36[address] Lymph Abs# 1.4 x10 Normal 1.3-2.9 [facility] Comment on above: Performed By: #### 7 240631, 42566575, [id number], [id number] ####[facility] (DEFAULT)[address] [place] [address] 49732 Lymphocytes/100 WBC (Bld) 26 % Normal 14-48 [facility] Comment on above: Performed By: #### 7 689039, 50475720, [id number], [id number] ####[facility] (DEFAULT)[address] [place] [address] 51650 Randall Abs# 0.6 x10 Normal 0.0-0.8 [facility] Comment on above: Performed By: #### 7 713042, 56258413, [id number], [id number] ####[facility] (DEFAULT)[address] [place] [address] 83534 Neut Abs# 2.9 x10 Normal 1.5-9.2 [facility] Comment on above: Performed By: #### 7 894201, 12448710, [id number], [id number] ####[facility] (DEFAULT)[address] [place] [address] 05862 Neutrophils/100 WBC (Bld) 54 % Normal 44-88 [facility] Comment on above: Performed By: #### 7 217782, 75344136, [id number], [id number] ####[facility] (DEFAULT)[address] [place] [address] CBC w/ Auto Diffon 4 Erythrocyte distribution width (RBC) [Ratio] 15.4 % High 11.5-15.0 [facility] Comment on above: Performed By: #### 7 109365, 17986201, [id number], [id number] ####[facility] (DEFAULT)[address] [place] [address] Hematocrit (Bld) [Volume fraction] 43.6 % Normal 34.8-51.9 [facility] Comment on above: Performed By: #### 7 829298, 81670121, [id number], [id number] ####[facility] (DEFAULT)[address] [place] [address] Hemoglobin (Bld) [Mass/Vol] 14.3 g/dL Normal 11.8-17.7 [facility] Comment on above: Performed By: #### 7 547999, 86171372, [id number], [id number] ####[facility] (DEFAULT)[address] [place] [address] Man Diff? Auto Invalid Interpretation Code [facility] Comment on above: Performed By: #### 7 571195, 60105636, [id number], [id number] ####[facility] (DEFAULT)[address] [place] [address] MCH (RBC) [Entitic mass] 30 pg Normal 24-34 [facility] Comment on above: Performed By: #### 7 325744, 79704845, [id number], [id number] ####[facility] (DEFAULT)[address] [place] [address] MCHC (RBC) [Mass/Vol] 33 g/dL Normal 26-37 [facility] Comment on above: Performed By: #### 7 999409, 26061819, [id number], [id number] ####[facility] (DEFAULT)[address] [place] [address] MCV (RBC) [Entitic vol] 93 fL Normal 81-100 [facility] Comment on above: Performed By: #### 7 616096, 76995157, [id number], [id number] ####[facility] (DEFAULT)[address] [place] [address] Platelet 137 x10 Low 138-427 [facility] Comment on above: Performed By: #### 7 902779, 21422350, [id number], [id number] ####[facility] (DEFAULT)[address] [place] [address] Platelet mean volume (Bld) [Entitic vol] 7.5 fL Normal 6.3-10.2 [facility] Comment on above: Performed By: #### 7 998020, 41886576, [id number], [id number] ####[facility] (DEFAULT)[address] [place] [address] RBC 4.68 x10 Normal 3.70-5.30 [facility] Comment on above: Performed By: #### 7 102714, 90377647, [id number], [id number] ####[facility] (DEFAULT)[address] [place] [address] WBC 5.4 x10 Normal 3.5-10.5 [facility] Comment on above: Performed By: #### 7 583297, 80712656, [id number], [id number] ####[facility] (DEFAULT)[address] [place] [address] CMP Standardon 12-11-2023 eGFR Non AA 58 mL/min/1.73m2 Invalid Interpretation Code [facility] Comment on above: Performed By: #### 7 072771, 41297864, [id number], [id number] ####[facility] (DEFAULT)[address] [place] [address] eGFR AA >60 Invalid Interpretation Code [facility] Comment on above: Performed By: #### 7 345712, 99076720, [id number], [id number] ####[facility] (DEFAULT)[address] [place] [address] 12991 Albumin [Mass/Vol] 4.0 g/dL Normal 3.5-5.0 [facility] Comment on above: Performed By: #### 7 294012, 51821500, [id number], [id number] ####[facility] (DEFAULT)[address] [place] [address] Alk Phos 79 IU/L Normal 32-91 [facility] Comment on above: Performed By: #### 7 888080, 52000959, [id number], [id number] ####[facility] (DEFAULT)[address] [place] [address] 67894 ALT [Catalytic activity/Vol] 23.0 U/L Normal 17.0-63.0 [facility] Comment on above: Performed By: #### 7 420406, 14661446, [id number], [id number] ####[facility] (DEFAULT)[address] [place] [address] AST [Catalytic activity/Vol] 27 U/L Normal 15-41 [facility] Comment on above: Performed By: #### 7 485037, 62892617, [id number], [id number] ####[facility] (DEFAULT)[address] [place] [address] Bili Total 0.8 mg/dL Normal 0.3-1.2 [facility] Comment on above: Performed By: #### 7 355719, 98644946, [id number], [id number] ####[facility] (DEFAULT)[address] [place] [address] 23561 Calcium [Mass/Vol] 8.4 mg/dL Low 8.9-10.3 [facility] Comment on above: Performed By: #### 7 601690, 39957710, [id number], [id number] ####[facility] (DEFAULT)[address] [place] [address] 06015 Chloride [Moles/Vol] 106 mmol/L Normal 101-111 [facility] Comment on above: Performed By: #### 7 888958, 78684296, [id number], [id number] ####[facility] (DEFAULT)[address] [place] [address] 47950 CO2 [Moles/Vol] 29 mmol/L Normal 21-32 [facility] Comment on above: Performed By: #### 7 764723, 86977580, [id number], [id number] ####[facility] (DEFAULT)[address] [place] [address] 21362 Creatinine [Mass/Vol] 1.26 mg/dL Normal 0.90-1.30 [facility] Comment on above: Performed By: #### 7 060503, 30617674, [id number], [id number] ####[facility] (DEFAULT)[address] [place] [address] 22566 Glucose [Mass/Vol] 88.0 mg/dL Normal 74.0-118.0 [facility] Comment on above: Performed By: #### 7 197270, 09483361, [id number], [id number] ####[facility] (DEFAULT)[address] [place] [address] 95917 Potassium [Moles/Vol] 4.1 mmol/L Normal 3.6-5.1 [facility] Comment on above: Performed By: #### 7 391019, 81888647, [id number], [id number] ####[facility] (DEFAULT)[address] [place] [address] 36154 Protein [Mass/Vol] 7.7 g/dL Normal 6.5-8.1 [facility] Comment on above: Performed By: #### 7 497839, 68983224, [id number], [id number] ####[facility] (DEFAULT)[address] [place] [address] 06867 Sodium [Moles/Vol] 137.0 mmol/L Normal 136.0-144.0 [facility] Comment on above: Performed By: #### 7 792608, 69370020, [id number], [id number] ####[facility] (DEFAULT)[address] [place] [address] 38278 Urea nitrogen [Mass/Vol] 16 mg/dL Normal 8-26 [facility] Comment on above: Performed By: #### 7 272356, 58156908, [id number], [id number] ####[facility] (DEFAULT)[address] [place] [address] 49841 Albumin/Globulin [Mass ratio] 1.0 {ratio} Low 1.4-2.6 [facility] Comment on above: Performed By: #### 7 582239, 98920710, 8694216205, [id number] ####[facility] (DEFAULT)[address] [place] [address] 37988 Anion gap [Moles/Vol] 6.1 mmol/L Normal 5.0-19.0 [facility] Comment on above: Performed By: #### 7 421633, 59817221, 2325974342, [id number] ####[facility] (DEFAULT)[address] [place] [address] 15045 Globulin (S) [Mass/Vol] 3.7 g/dL Normal 1.5-4.3 [facility] Comment on above: Performed By: #### 7 590250, 30757791, [id number], [id number] ####[facility] (DEFAULT)[address] [place] [address] 62210 Osmolality 274 mOsm/L Invalid Interpretation Code [facility] Comment on above: Performed By: #### 7 [id number], [id number], [id number], [id number] ####[facility] (DEFAULT)[address] [place] [address] 66024 Urea nitrogen/Creatinine [Mass ratio] 12.6 mg/mg Normal 4.6-16.2 [facility] Comment on above: Performed By: #### 7 [id number], [id number], [id number] ####[facility] (DEFAULT)[address] [place] [address] 76496 Lipid Panel Standardon 12-10 Cholesterol [Mass/Vol] 150.0 mg/dL Normal 66.0-200.0 [facility] Comment on above: Performed By: #### 7 [id number], [id number], [id number] ####[facility] (DEFAULT)[address] [place] [address] 22226 Cholesterol in HDL [Mass/Vol] 51 mg/dL Normal 40-71 [facility] Comment on above: Performed By: #### 7 [id number], [id number] ####[facility] (DEFAULT)[address] [place] [address] 35443 Triglyceride [Mass/Vol] 73.0 mg/dL Normal 0.0-150.0 [facility] Comment on above: Performed By: #### 7 [id number], [id number], [id number], [id number] ####[facility] (DEFAULT)[address] [place] [address] 34223 Cholesterol in LDL [Mass/Vol] 85 mg/dL Normal 1-100 [facility] Comment on above: Performed By: #### 7 [id number], [id number], [id number], [id number] ####[facility] (DEFAULT)[address] [place] [address] 87974 Cholesterol.total/Choles terol in HDL [Mass ratio] 2.9 {ratio} Normal 0.0-4.5 [facility] Comment on above: Performed By: #### 7 [id number], [id number], [id number], [id number] ####[facility] (DEFAULT)[address] [place] [address] 57631 VLDL. 15 mg/dL Normal 5-40 [facility] Comment on above: Performed By: #### 7 [id number], [id number], [id number], [id number] ####[facility] (DEFAULT)[address] [place] [address] 90005 Provider Orderson 12-11-2023 Provider Orders [id number] 4#[id number] Normal [facility] Coding Summaryon 12-05-2023 Coding Summary HTMLBase 64 ZptweihlKYs3fFg+PGhl YWQ+CM8EKTWrM51urPRx bN4fY6YXZKrEHlgyZFAR YGeIThGzagRkRV4xjIUe ZXJu IC8+QG5sSVBdUpjiaNBc e2A4vVH1J65zig3cRMtz rZX7GRRoKyCrllntx8wb kDk4VFzkYtppOsTk NXLnbO89LWW8mU13Ft97 bDFrnEAxg6qhqIw2RsLb FKVkXHB3cTznVQfxx1Iw YCPmI64uxZIan2T0 IGNvbGxhcHNlOyBlbXB0 zQ4jWVskrucml6jdqstj Gyl6ul92qPUcx4U4fWZ7 K0HwgfW5VUScyZDr BqjhhTIXaZ7ezjzag2uu hnztEmHdWAFuORn0ONm2 LTEiaSauBqOiDE16PIX7 BGPluvIiJ1EePJVz dKiqAoI1i6B9Fj3FW5GR OozkM1XUDMZVUTcfjGT+ TY30ig58H5CaXwnzTsd3 YJLiNXD9sCI3oV7r GVUhSJohx4N6fSC4R8Re byDrzx2ng8xwDRZgSSwr R53kfKUnm7V2DMGchBN8 ORDjlTfqMuYhtN78 Oyc+RAPouSndu1DuCwek h5gkr1qysFu1PwmlKHQg zcYpnIfzBJR4x5QiNp0r UMPcsJJ6vWL8eY2m ZxQqDtB9IVlzM875OhYa oUEbTvshJ14jS1XjnJQ+ LOFxQza8UVGghGptKZ2m W3FtCTEpcqpffGJx hUzfUV0jJMChafevYHUx xX7wRPNkZ9q9PdEoXdT4 SGuoN8ZcLZDrauxnRg32 tU3wRxFbKcN7APnt P8IojaG0DRWhiZUbLXgs CCN9N20tv6U2QMKnKEYg LTB5rYE7cM1ypNfwfzvm bGVmdDsgdmVydGlj FMbyRXsbU620OZFhxLrh PkNvZGluZyBEYXRlOiAg MDgvMDEvMjAyNDwvdGQ+ PHOoNGW8zWhbSIAq eDBuPKvtXk8jhZyyiLoy PJ5bFOVppwsnSEIguW1l ZUBadBLyaYmmQF3dFAJg njtvi458OgDxIZC2 ROGnePLjM6SbuA0iAvBe CGMiIPLcP7UgwDOnREqn V006QUmkLdD9ZIEtarPi V1HdMFEhoNscJoT0 z0E6Zm8Dw4ZhmpkuE3Ad bVNeQeJgDyguDQi1I8Oc PjwvdHI+LE39HBUdKS82 TKp8AMP7aEbfTTbl MPZgL6NpwZ7tCwXlFNTz ZGRkOyc+PHRhYmxlIHdp ZHRoPScxMDAlJyBzdHls SV5yJe7zMAFvIBSj cEdrqXNzWeUry2ryNMFk YIssPO2hrOinA5PqzHF0 VRLxw0t8Vo81X77pL7Yi dXA+MBYqsDB5oUI5 jI9eYxNoFwM3ETfiH880 JlKjgGGfRtiee6fnd0yr mNu4IoS8AELukpUfgRsz JDF2g7DoZy60S67d IHdpZHRoPSIxNSUiIHZh qEvyse5fvK4oZs4+PGNv aMC8aQD4cA1jPkVaVuK1 BYrzW183BzOzsVSn Tigid0rao6apjOe8NcZo FLAcubWljQrtEWK0o6Xm Xg63J7UtsAsny7SdYoz0 fm03bIOuo3P2sXF6 I8DeWRDtfratsKCmiTmt TZ6kGCUqgiujDGFosF0f JDOpF2k0HdPqZiC5KVuh C9DgfuO8JGKxuLGy ZJFafOFJwZ3ijjveu5xt oqvmWkOwJWOcEKm3CHh2 URHxbVyoCmJyUDQ8WfN9 VBE5cGBxzT0kwQjt kpoigJ9hYwo+BSM8rSJx yZRIDJ6dRwngqHY+PHRk WJD8eDyhONieBNTkdU4g WJEsF5z1VpQqBkZ4 RUxdD7YtzvZ1GIPecITk ADOplURCgD5pvjzuj5yg gxonUqQkSUBhZZm7QZr8 LWFsaWduOiBsZWZ0 XvA1ZSU5vRXnsA2yzJpt pbrsjU1gDpj+QmlydGgg LQJ9ZVg5I1PfJji8AZTg oVneKF8krDBgAKtt Mu5tmQvxsUvqXL1rAPMu lhllc371SbTvg9rpBIIh kPOaBYpiZNI4J78ky7X7 MPKiGXXpKRB3nOA3 tD5fsUlblnqvfQAidFmv zySnhIxpXTzqDXqwF124 MVPydFydRaLkOXg1U4Ma Jbq4OFUhvOogAO8c jFOeRNmuNw5mtSeorRqz NV7lWLPnqbqse462IhZb s7vyDJIitABgJVzhDEV3 M56bm0S2KQLtCRFp PTA0eAT0tW9qtGqdhbew bGVmdDsgdmVydGljYWwt ZXygQ780JRUxyDrhSlSy eVy7R8DfNev5LKMg gOnaOX0umWPnKExvPr8n sQpyrAihQI5uOQDlogzs t841HnFki7pcDHOajBEw XZraDXW0P55fs7E7 PSMaODXeXOT8eUI8kN4w bGlnbjogbGVmdDsgdmVy dVliQKehNVusS252VHUh cDsnPlBhdGllbnQg GHgsYIx8L7WeZuwsvKA+ MR05QKXvSI64cUHfdXXo d5wjrSu6YzTvTFBaEZF3 jPixBXkmc6HfSVYq I84kaAWpa3Y1IANqdNoa qEVuYrWssTW4xO4zVWoc lxydw5rstglvNizkq3oq xk63oT48Y85vCZmm ZHRoPSIzMCUiIHZhbGln em3ikH7mRt5+PGNvbCB3 lER1bL5uMWHhPkP2AOrm Y001QvNleRZvUvio b4avy8ukdBr8UwY7BVEc oyTnrCjaKQU3b8KwDu38 I18cNSreVJPlWMFyXFUu VJYjzNuzhc1ohX8j Ii8+WXTcsTD8kZB8sU1r HpNmOsI1ZRfiK932LaNz qJFrNqklR62vE5MxvZF+ CBYnHzl1ZKUqpLak SV6xvDQyURemSm5kTZR9 FfMlCcErVYaoE5ScCODt yabcrgnpgKO9TLEoBEHm tT11Wz2jvVybHOWi aSNQeW6cbbene2edgilv ExHrXWTxZOh0PYj9CBGe nDycLfOrOTT1DgP8TEX0 wUZdzZ2bvHosgygv nV3pU3OsJQJqwuvwNk15 zE5lDgZhCkS9MOozIix+ U4PDWpwcWY3DA2gSXUgf SzwvdGQ+PHRkIHN0 yRzoMIakMJTeyL2rNIIg Q4p7GaQnYbB1EPtqK1Ew DURitwpwBj51xK1dPlZa ZvA5TSzsX5DypvW3 TGUzqLFuFYtzGZQ3Y91l d3K6MYYwACAqUWR8eAC3 pB2qpEfcmpbsfKBdlCyx dmVydGljYWwtYWxp F901FKStlHmhDxXbDeB7 PaM4ZqR8M1GbFul9ZENg bWsoAN9fbIStNWyrYh9o cVcfpGvsVX1jKFGp lbyvGBUrvP7hZFQfnBIb jVojTX1gQCTpyujho189 IlGoZPY1JXFzxFIvC8Jz fA6pTtOgHWVrJTCo W9VzoFVmCKkuU502NTxx JiD8MZSrlhFzK1JnLBMf kLnoFyN8l8A8Tk85JOMS ZWFyczwvdGQ+PHRk IRU4dLusCEhrYHOwsP9a UMUjI5u2EkUkNbI9KVfn G7ObODQowwucZt71fN0z IcSfOtX1YGodE0Pv raZ4DGAmpLXsZRxtRGI3 H26jc7V8DCCmWRVcIHD2 xBT1mY4idJlwraccrBEz dDsgdmVydGljYWwt GQegH820WAJgwIrlUt8C JFS0T8SkJen8SVQyuZgs TB4diNUyKSteLr5icMpj bZixYB4jOJZnbtzz QSFznT6cEBAzoDHjqVog AR0oZIEvqqiiu724KjLf VCH1WZXgvFLvI9MofX1l UxYcSDGsTTOtX0Jm bETnSDpzJ960PVluGrF4 WVDmefYjA4YkECDspEfc JzO5c9K9Wj0FMGrhhMH+ RS70ch69I5MpIwns Jhv9TSToETU9rVO3wR9r COLzEZntp1S9jPD8B1Zn leDptm3qp5ppMNUkSVqn I06emXQev2C5OHQw hQL5UENbwVqcYlIuyX73 Oyc+QAPndEogy3KaFtrf g9ynj8xxbWy5EeLcINWv fdCkxVgaMMI1s2Yk Og11U35xDPeyPGUsIRDt NZZkFHZleSunsq7xwU9i Ii8+QYDldTU4yQU8gY0o YtZkDnL6YKtuS157 GdNljXTvFjjsw6vhk4yf yRw9EtZrQYPifeVvlGiv CJB5z9UwZl28H6XuxCwx p1AzGyj1hx08eEHy x3A0fNL1V5GfTXEzgncv pYLsfVgmPS4mCMDvrwlk WOAixZ1fOFThN9k4PtOb EvN9SZejW4TetxL8 KEVtpSYrVTWoxLSQyT5a rvnxw0oshtkuBbJfALCz FNt0ZMw7AGWudRwmApIp BVM1RtO6NOM1fDPr iP3qlBglifooiT2qFfp+ QVg4o6ynqSRsEA0imTX0 FK93QQ05vNGpm6O0qNQ2 F7QcDOMqndrkzujp tAR3FVBeUKOguC75Tz3h kZgiEw4cYGZnEIH2RKJj wNFzM7LftL3aBgDbNVJv ZHZrQ2ExuOAyVBmc D138WZndLzO9JSXflgQo A0FzSQYviFxxKzP4o5R0 Wb1KRR20KA02JV25xWOk y1I9lKK8T1DaSEGc ckqgyhzpjFU5SJMjPVRy nX77Jh5bdCarXi7kAIBq WYK0KUSvnEAkW5NcgC3p FqXqAGJlDEZkY4Ov xFEcRGvcH599BUduOrV5 JVUmesBhI6ZyBZBhfGbl JcI9n4S9Gn2VQw67GK57 CV60jPIwl4E2hSE8 H8RvJATxilkzdkbupGB1 EMCrEZPraT08Pu4ooDum Uf4jIOKbHQO3TSKyoMWe Z6MrdT2hHhKaTHLo BHHpV5MgnPYnDLjeL542 PUwmBdB8RQBxekIyQ2Sk SQHwcPxwPmT6j0M9Qu6P NJfiusk7U5ShEsjd dHI+CF31IFWlVR05yJJl mLZeb4gtnFk8OcCzJPEy KLY1vOkrKWktf8NwVODf S66qjUQfi2O6TGOw bGx (more content not included)... [facility] Coding Summaryon 12-02-2023 Coding Summary HTMLBase 64 OdvpvlxtWSd0qJg+PGhl YWQ+HK8WFYUoT94nyXNr pI1zJ2VLVStABokaZJUO YQoLWpLwzlVvFX0dwEWa ZXJu IC8+WG7aEEXbLogozYJl f3N9vPW6Z43syq3uTVzn hOP8OCUgDzRaymris9dq tBf4MFbmEptaNkKb IRLnvC09MBC1dU98Nt95 bYPagGNdu9zvuAy3NbEm WVTsBRG7yCyvAMdvk5Vt CVRvA26bvTQcd3S8 IGNvbGxhcHNlOyBlbXB0 gU7hBZnvkxlvb0qeeplc Dkv9gt66tVPfd6Q1cHL5 V8OlpvN3VIQpxIZo SyjahFYXxA2pkjjjd3dj vxhpPrTcVHLsFMk6XGd3 CXEaqDkfDoGtTE82FTF0 EAPhyqRzI9TdFMWq mPovFyG8s6D9Zl1CH3GH RqvvQ0LRZZOKCJxxpHO+ AB81js64C5VfVznzNrm8 WCOnOQI2hZG9wG2c JYJjUKcdy1A4uJE9C4Rz mpFdhh7yo8pvSNHzBJeh Q24vwFDtj0Q0WWRhfSM7 AOYklGjpKzMecB56 Oyc+BOHcmXydb7UyZuse m6nnh2cliUd1WdmrCMWy xfCucCjvGLR0p4IxOi2j TLOkkID3oLW6dM7l FeMiCpB6TYtqH466QrUz yWPdMagzE99xX5ZqyZM+ GNDhIgy7GLBezXaeYK0e W7EdLBRgiujjhNFl aOdkAB9aMNOqseyjORQg yE6eYAOuH8q1XiUzWiQ4 NGzvU5BaHVSvuqgtIp45 gO9mJcFsGrU3DIoq V5AmykV8ZTFpdHQrRWid OAX2U26by0I5DZCqUBLr LDP5kOS5jB2fmAonatsm bGVmdDsgdmVydGlj CHenGMntX792DTUoyQaw PkNvZGluZyBEYXRlOiAg MDcvMjkvMjAyNDwvdGQ+ HDHnIEU9yYnfNNLf tYZhSYncTb6emRzegEav DB6sTVNsczkfAKMpoX0d PRXisOOitZupOQ3aXOVu refim714OhFwAHH6 FVEngNBeV0FdeP6dOnBk VWNjQISiW4UczWBgENfn Q322EJsyYkJ6CXRgtrLq W1FkTBIpkUquSbL9 q0H8Ai4Up2ZgasyxS8Ab pMIkZnFsUxfjAFf4A0Wc PjwvdHI+UJ65KIJbAS04 ISd0ABY7nZexIYah JQKlR5PavT5oYsWjKMGl ZGRkOyc+PHRhYmxlIHdp ZHRoPScxMDAlJyBzdHls EF0gHv0fOSLlEKGw hDdbcIOyYgLij6ftWQFl TMkaBT4rjTbmK7CgkHY0 KBEnq0q9Lf78Z66tW3Pq dXA+JBOlqKS7lYP7 iH9iByRuQxG0VVdxW995 RdXjmEEpNwbox4ufg5qb pKz5QiA1NGBluhKmcHjf SIK4a5YaQs15P93n IHdpZHRoPSIxNSUiIHZh qRuroi1kjD4pWz8+PGNv uHK2vBQ2fK7sXkFuTbP7 SYrmM418QvGeyMWc Vtboq1wvl8kfeRa6WgOd BNDsbiMaoWvuMHE1r1Gn Sz81Z9UmxLazv4DwJsw1 yx03cBCuv3H1eMU9 W8UyWTPlwqvdtNCoyEcv KW3xDKQgzwobNIIikU2y UKZhU4z2LjIlYzX2JTqd H9VnnkQ3GXIujUPn SQBjcBTYfT3lrxtit3ai ltebNbEnRUQxRBi5RIf3 UAMnwElaPbJfQET5OxW3 XNR9dRFxeJ7omDfm ajyxnM0hDnf+QEQ2wGEt dPZHRQ8hZhhkmUW+PHRk PYV0jUasZQjpYWXcsL1r UUZyR0y3VjHbXsS9 BGpmS2VmemT0LDJgmCIx DILccNXQzG8mgdgkh8ty ieulWvRrGYMgWDv1WKs8 LWFsaWduOiBsZWZ0 BnD8RXU1jXRrpZ2lcFka aybtjM7tSwv+QmlydGgg XKJ7RWx7Z0HuDwr1FJDv iLlsJN9sjZBxEZex Sz8arVvhmNgdCM8vIHDq ivblc900HjVco5msZEDx lWViZOjyKAI8S54iq8M6 MDLzTYYbTDP9wTL8 rI0jgUvhonkecZAadBku drOvtVzoJXgaSQflC591 XHLulIzqImDkGJp6O6Fd Zoc7KFFkmItnMU7e hJBkVXlnMx0ysDfibTvr UY0nIBWpprwve358JaUp f8ttQPJicRRnUZhjOHE2 S75mm2Q4CEIbZSKf TWH7hOC8oM1fxHcxmmxm bGVmdDsgdmVydGljYWwt WVdgH499PYGdySbsWzOr cUb4T4VrLsy8GUXo rVtbMH6snKEoEHfcWd2g zSemkWhqLZ6bJECqbjsq f478HsHnw0jrYHNkaIWg FVzvEYQ5A16nn5Y0 DXJrWKRzBWK1wBN5gL0a bGlnbjogbGVmdDsgdmVy uMmcPBjmBQdaV071RFHl cDsnPlBhdGllbnQg YXaxADq6F6YwNzhjrFP+ IG44CGKmOF61oORwlZZs c7gefEe7VfRqARNjZTB1 cEkgZWadi9CpZBUe Z55kxZYlx3G9BIEmxJlq nVEcUwUbhIA7kK7jMBms nxbcg5ljgyeeViwqa4ih nm00rM31Z34jRGim ZHRoPSIzMCUiIHZhbGln gs0qqD3xQg5+PGNvbCB3 sRB7vO4kYIDhTgI0BHcc X316QjJlbIVxRrxg h2yuq7jaqRk7SnN8OFWa lnMwwOahXAU7p6KyZw91 D39mJUbaNCRdCXBoDYSe HRXilMsika2ymS5h Ii8+EKDacIP0nCQ5hM2q GnStGrG1JFmcM338MhTr eMUtYyxkK04oZ0HgxTJ+ PCDdBql1RTJikAcf HJ5spZKgAZjmIx3sVHX8 BcHaDbZqGAwtR2XtMRQs cijqokagvLI3NZNzRYAn dQ96Oc7zcYvyWLRk uRJNiZ8miuica8alaugi GtEcLLRlPYt0XWh3JWPr gUpgSiYoCBT1QjC4ZAI3 kKVazB6omIxiuloa rP8hO3LmGXPbvqfpFe50 wP4zJfDgBqL7PDpcWus+ P3KRJucvSY6SJ3qEELcn SzwvdGQ+PHRkIHN0 qLcoDYrhJGGqcU1dIWJl Y9z7YfFtJgQ3KLbuV8Me RTPjmodsMq04iT5xNpHr ZcY4URsmV4ObcsM5 FKYsmFGxSWacSDQ1M27v e1Y6OPRjAWHmPYB2oRT2 qZ3sxMldrsyptDEiuQek dmVydGljYWwtYWxp M584VCQjwGdrPcQfYvA9 RfV0ZwO4Q7JsVze2DPUo pSjiTG3apOEvEUvfOj7z gHsyzPkdMJ0dZBSy unooUWFroY5mUGFmcOIy nCwnVC4hNEAjhbazr211 JwQsNGB4KUVjvSNzH0Wy eK5kAhXyONQpNRJc F3XewTXzRYsvP992FEeg UdP5XHHgnxKzP1XxJEOf zYouXhZ7v4B4Kf07EUFI ZWFyczwvdGQ+PHRk OQZ9qFtfWMtyTCNmlH4c FQMbX1c5YlGiYzF4ILxq W4WvBIImgyftOf02rH0y RuSfThA7PDaqN6Xy koG1USGeuYAbNPqvPLP7 F53ko7X9NACeZGFgEKW9 fCA9yG4wuEjveipwnKAz dDsgdmVydGljYWwt JXldH281RXObsKvsKp1P KKD2Q9VyUgf0RWQziByz HZ4cmSNtTFgxXy5ywDkk eNpsYD1bISTimmpk QARnhH9sFRSmsOFaaHec BU6dVYNtgsgtq345VnZs BGB4JLHzwEDhX1CsnW3c ThGoZQOhSBSzH1Ep vOJdXUoqM376MZqrYdT8 VOBmgpVtU6NfHIFxnAnu PhD4p5S6Dx8IOUejkEE+ LP81xq86S4BsXuia Dnf7JOIkGXV1xVY2vG2k QPAfDYxzx1A5uJM7Z7Ni sgBkrw4ua6koEBErNIuj G87zhELfc6D7GZTi wHV7BEBezCylNyAcyX18 Oyc+PWVcqMbmr8JrQqiv m1kzt2svnMp3GhMvRSUd ivIpgKetBJA1d2Su Wy85O43uSChaIEIqSIJd NYRhBSMarKumhf0llN3m Ii8+YUAhvKM1iWX3xU5w NqAgQcS8HMspM711 IiRcaBNzQfdsx4lvo4dp qKh5UgWnNEBgihNnlCrt OQS2a6PyPj13G3AacTps s6IkUrb6tv45iFOc r9V9mPH0Y6JwRHPqbown mURlmSutQL2lNRPwdzqr WEYaiI0mCCNdY6f5IcLm WnY4LLklQ4TgkoP3 OLKacKVmFRQycOOLnT9o phbft3qsdpimYkRzWGCf UBu2CHl0FMOicXmjEfEh UWQ7YaS7IPT7aNUc iP2qgKjcxzbeoU0wXgj+ OLd5w5eztBJdLY0lfZI0 XM46OE87xWHyc9G6hTJ3 I2XfAEKfvztqkgpk gAF9DCZgIUHapB38Ta4i rLudEp6zIDEwKLE4OWJk jLOpP2EilF3nBiQoBCHc ROAmP5XcsRFuGQvw A993LTznTlT6XXQaquMt U9KrFPEusCajMwV5q9F6 Al0GWX64OL92YU05rQIh g8Q7sQX2Y9HqEFZs zeqvuwymzQT3CXJcMJIc nM43Td4feVxuWq1nVZFx GCZ7VYBvwEJcZ0UywB3j CtKuLAAoSSLiO5Fq pRRqIGrdX140RNqzQtW2 CMBbfcYqI1IiGTYkhVmc OtB5b8W6Yr3PRm45MW94 CE40nOPpg0D9cWA8 W0KqJQWjtnvecgqvrRG6 QEPmVXWsiP86Mr7dsUvw Aq4wBKJxNZM3MMHtoHRy O5ZqnD1bQrWdOIFb XAXiA9WeyROhCDdfL358 UHwuLxY5WEDpkmAsQ4Mz RFIcvWjzZqY1b4T6Dx6A WPmojak7G6QnMuiq dHI+HZ46TJAtZC29dHAz gIVku6rzzKs3WkXqOUJh HKB1mKphCRwsb9IkIQAo T92mbZQit3J6ZQMw bGx (more content not included)... [facility] Wound Care Noteon 11-25-2023 Wound Care Note [id number] [id number] [facility]-13[facility] GqujkjobXXa7wXw+PGhl YWQ+FP1FEOAcU99zlDSs lE1tE4ANMHvZBfjgMSVV FWcPFsHqjcRzUL7uxIJn ZXJu IC8+NZ4xGCPzKligfHEt p0J3pKT0I70fqu0lFJza mGS3AVGyXxTzxzhyz5zt xOx5AJcoOeheGmRo YQSqdW88SUL6hD30Ss69 kOLowIBrh1kdzKw6GeNw LZTeLKK2vEeuVYvld6Rb FZVpH44nySImg7I7 IGNvbGxhcHNlOyBlbXB0 kG5gTUkbxswvi0zishlc Xdj7si35aDFzb6T7nCQ6 G9QwxjI8TWVxbDYy AnakpUKVsA9cisxvg1xr zxleZuCcNLYkYZb0APn7 KREvjAgbZcKbXG55GSO2 CVFyxlZqU3RyMASx gIneTaY4v4G0Kh1UP0JG ObdlI5EKFGHPIRdnfZT+ OH90mj98V5RfUghjJfr3 PAYuLQQ2wNN2eC9g XOWzLMjjq4R6tTU5Q7Nc jqZgjg7wv1ubGRRlMJto O69jqYQcr4U6LMDjbYX7 DCNqcPaiJqTthW40 Oyc+SPLjjUhjc5YsKbga b1yhp4vvfPm6MjraTHZb vlBazHbtZPX8i7HrOe9l MCHioEY5jUO2oT9i IuBmDtS1PQrbC474SmZn fNHcSfhoO34eO3GthKY+ JAAtHka8FEBhhCobXP8x Z8ReRONxhvlohDJp mOlvBQ9zPRGjtgluCFQz lW4bYUWdO5j1IvRnYpV3 QVcoE5SoPYUhjdcfWx56 lU8gInQlCsH9SGuu L6BpvlP5INEvhCHiMQgh NUY2U77ic1E7EIZbJNJl QWA4iTY3pV3ayJseqjue bGVmdDsgdmVydGlj NPqjMPemU366SQGnjEpw PkNvZGluZyBEYXRlOiAg MDcvMTAvMjAyNDwvdGQ+ VYOaLJB8vVinNFXr wIQnVOviQz1neWflbWsp ZW0jKUFfqcxkWAQtkK3x VJHonTQhmGhaOE3zVGYh vcypr343NkShITN9 LZXldPHmS5UegR3dJwRa PEQpPZDzH9FjoCUfRMlw I806SLokBjL9CJZgraVo M8CoATYmuZzjQhO2 b3P3Jd1Hd2FicdsqC9Xr vQBvEfUbMougLJz1Z5Tv PjwvdHI+CW89FYZpCV38 EDg5SEO9fCovJCcm FUBhD8FbrO0iNtQcQGQx ZGRkOyc+PHRhYmxlIHdp ZHRoPScxMDAlJyBzdHls GP2yBw7tSYWjYRXf hPqydGVgZnRed8xyHEPj QXfxVQ0ejYxvJ2SyoVS8 RZBpt7x2Ks39K48oV8Mb dXA+AOUsgDD6mVY0 bS1cVtWqHxO5ZKuiP359 UkLfjRSnYaopa4xnp2uq zEz5WrO2YNZassYdhZil TXK1n0PaBl14D89q IHdpZHRoPSIxNSUiIHZh zXahib0ocT1aBm5+PGNv cGQ6jVH7pO5eNzCaZtY4 PTzbK100HkFbeHJe Sozye9iph1pbbFz7SyLo GEMnssYadGnjPDJ8i6Yb Kp20Q3ZvhYiyt3XnJpl9 ww93rYOsc2K3fVB8 X6AkSEVkfxmpzTHjkXjw DB2uLYJpkbmfDAGbgI7e IXYlP7y8AlMuCgJ1TFha P9ZdwiN9XGKehBDw YIJsrULXvB3qkgyks7nv qsrgSkJkHWIqKRe0VFi9 WPTeqAccNxGnXJT9WhG9 DWF8sVTraW0luXnf ossomG0cZkk+XLQ0bYQx lWTRUK9oOujvnDQ+PHRk SOO3uRtzHFwsVBXajR9c DEFgR4w0LsMtTrS6 FNriR6CxknG1EIHboOKt JYGfzBBTdG5pmmdfo7ku cyceEkRlWTIfUHo0CBr5 LWFsaWduOiBsZWZ0 OvJ9QTQ9hSUvwK8xeFff flkdrQ5mLxy+QmlydGgg WHT1ILe1S9WeGde2TCTy jGwkGG8giYVbDMpz Nq7esQivvUepEI2sUCMn xnkdu959OfUql1kvUJSy lTEdYPivUGR5F98ml4V3 TZDoHSBiFGY8mKC1 uO5xiAnavnrewHSvoEiw wzOgaOcrHDndJLdqW992 IGRanHkxEsVmAGd9M0Je Rbk2HYGieRrlZK5x jURtUIgjDl0kkBnbbQxa FU3yQSAuqgrkj014AlHc o7ghPYHhgUClGRkcJLH8 K11mk5K4AGKsFHGy HMF2jKW7xS1ctTvaovcz bGVmdDsgdmVydGljYWwt ELvrS110EUTfdOjjFdIl aSt3W6IsDvb1DHEr xUauZW8kiYNgFWnyOp5f hChrzIxmVF8rWUNkdehg m870GyOxf9okLMSabGRh KRycGRC3L21hp3E3 HPIiUUNeLGO2eGN3iN3b bGlnbjogbGVmdDsgdmVy sLmcTEdvIXcmZ289MNJt cDsnPlBhdGllbnQg BVziFEe8X6GkQnsglXH+ UJ36GPOnCH78lNZuyAKg g2gsfXs4BvAbXEUdBOZ4 tTltHYqaz7PvIQFr B62dnAUyy8Q7UUGfsZsb zDBxBnXeiSE2jF6xUGil phous1ylhpjcQbtep3uv ns97pU98I46dLEua ZHRoPSIzMCUiIHZhbGln wt9biJ8cSb3+PGNvbCB3 aVA1cL6qRHXaIeH8REns J796PgHjhYGqMqgg k0xoj1ahzRw5MqE9DBVy fqHwaJvzEOR7i2AwFs55 M14cEGmhVPJpMKTrEMMw ZCCheUcykc2szR2x Ii8+IXHvcEL6dPO5eU6u GiXcNtQ5EKslQ177CwOg rBRkTvtdU96tR8WqjRE+ YCAwXel2JOTmsFoj WU0cjJXbQCpcDv1oIOS8 EdAvJdIoLGrhE3XhLFRa drixwtwgjDR9KWSlRBTv zB52Ew8drNxpGYCq pQRLbK2fyyerz1zqmhxq FwOdYJBgVOp1QFa7FMPn hZtfEaMyTQL6FhW4TRY6 fTCmkB2bzJdptpat oL5rH1PsPKSzyfrcLf02 oW9aOxBdEyJ3FNqeLue+ F1ICZfygHE2XI2cDAKpu SzwvdGQ+PHRkIHN0 xWghMTsoWBJmlA4tRLZo F8a9WjKfKeS3MFgmO3Vp DFVgatdlYi51xC1xUjUb FiC0OVrkV2NlhiE8 IIKhyMUqPDzhIXV6R23p x5T5RQWjMQNeVLJ3jYK0 uY6clHdwrvuphQBgfCvj dmVydGljYWwtYWxp A752TCAjuIhbLlDnAlC6 YhN2KjM7L5BfIlo1FBTq vTccRY4gzQMwMVtvIe6i pMmrvSprJX0lWHZd qgwbSEIciA6tZCVaeCEa jCjuKY8qIRLtzuaxj864 VgDlGAV8GSYgpRDaL3Mi hG2sLkLoFMPxMACw U7KjfXVaEZczD857YRga MtT0RCErkdTqF0AiGRNg gJodMfG3h0D7He09TXXT ZWFyczwvdGQ+PHRk NTL7wCbwMMzbIUFuyW5i DNKfI5v8HyMyBvC9BYcq Y1PnSDKkvczpBc71qV1g KfKvRmJ8LFwiI9Ff ygT2YCTgqANoIVomSMT7 F97sc2M5QDTpMBEnZJQ9 fNU2lC3inBexopsbbKPc dDsgdmVydGljYWwt OEfoQ303TLTdsBcnMk2D WYU2Q5AkPrk0XPYokZfj ZM1kePNoMYpePw3mySgb nIchGJ0uRLMiqyit DZJzvP1qIIRnwXUnqEzo SD9cIMBrnkzro110LoFd PJD6QIHikNBhM4AaaL7o JmMkUIOoKYVbB2Zp mVQdPUdjJ371LBhtOxR7 JEEqbrAzJ7EcTFLqxXhz EdV7p6N5Xt9FWNissZS+ YP74fe99V8JsJnwu Lpa6KIIoFLQ0jJG5gP6m GIFcCVtnk3P0dFR6P0Me akJqxz3qc4fsTFKeQPyp M77pgATax3T7OFCc mBB5NVJilHqqHcTloY25 Oyc+BIRmtBdxm6ZaZwpd n4nia4hgkNw0TnSaHMNv laMmmBckPJN1o5Fi Fp92N78lTNhbTPLoMAKi QRUzPOOlnRmkgh0grR9j Ii8+NEXylWG9wXT5dL1w NhOcJtI7FFriN467 UsQafNYyDjvwl9znc3ld cIy1LpJbNFZivrOekPeg HON0g1HiDe34W4GbhZku s8ApGes8yk56cWAn n4U4aTH8X3VbCAHwqqso hJQxyXtvOA2lUNXcdlih CYLggP3iFRXjH6b4FuRb BwY4JBrrC0QafbK6 LTIkiYLgRCHpyTQHtD3u qpjar9fuawnvKaOiDKTq WQq9DFn9LPLakBvjOiUu MYB6XeD6FJT0qTHy mO4mqVngpoviuR0uGpr+ TRr6t6baoGVmAC7qmIB4 RP88ML69qNMgz0C7gVV6 W0ZgKNOrkynnyrjf mGU1MJVpRJTpcB81Qt3i wMnaZx2sVZNcUMM9ONLy bRPsN7RgkI9xMqEjUFTj WVXuT9SkdAWoJFco G417GOpnKbC3JLOvxtWy F0DjPYIcwFsgBjB0x8J1 Pb0KCB03RD18EI38fCSr g4Q7jGN5J0MpPESk aflllczvrML2TQQfYNIk fZ99Cd4dmKyjSo2tJQZg FDU0HCCthCScY7BhrL3l GhGfTEPoIVGtI9Xk aHPcLNirD829UWedVrZ4 AACyryTwJ9XkCXNujWvu TsL3l7B3Zn4RDf25YE69 RG33lKKmh2P6qIV8 A7UaRVJyjvcyuispwAQ5 SXUwFWNjiC69Gw7txCtm Cg4mRWBoKJM1DYAstNOy N6XvuC9bRfNzREVm XLNcI8RjfFKtCKsnT168 PDmkAtD5VYTikiEpG2Vh WTAezBhsPuX6q9P9Pq0L CLrrxaz2T1PeUlbd dHI+QD16IAOlCM24qCXe hPCox8ipnYi3RnYaKUCw XDJ2uXzzOKpfa6JoIHAi G62ymVVue1J6QFMp bGx (more content not included)... [facility] Coding Summaryon 10-30-2023 Coding Summary HTMLBase 64 QmkayxaqSWb1lSu+PGhl YWQ+GH7XVJJqZ92rfCGc sQ0vG5PYWLtJYdeiLLIP AJiCDfShydLrLP9qcYAp ZXJu IC8+BC2iMXGsNtzskUAx f5J6wGB2V46eit6cKNiz bEL6YRXxGgVjpcpib5mw kTg6NNniSyepPfMn ARGzgE35TAY5gD47Va53 bSZzpMGoo0gjcIz3FwHm VVQqLUX1sWcnANltg0Ie VMJuA66zcNTtv7K4 IGNvbGxhcHNlOyBlbXB0 mA4qQSpuwudfw3upduuv Khh1uv78rQYqg5U1yZS5 F7NruhQ8BTZnpMAu OvdkfCSSbN2tnitfd1il cywwKrMyNFLsDRv7MZl5 HDMwcDakEdFoBB91GHD6 RYCbkgQsI3PxOTGa gEgaUvC8c1F0Hu1CY8PC HoxcH2TYNWVUXZotmIP+ MO61vj30Y2KjSvbeFaz0 NBSkFDL0eNS6vN4r LCAdHLqrq3U4bXD6P4Ll kcBpgh6va5kbHNNgBKqa P92hbQVgt2C7GYTqeHY5 JUNxsJfqBsDptE66 Oyc+MQWihRtkz5RfDyeh m3zyj0iulFb8KhtqKQTk swFxpYvhNFV5y2RcUe2x KKOnqHX2pHN3wI9l KuSiZvE0DHtsM192EaBc tCSdWnvgZ29nX5RmuYM+ BZPdUan1MRXncYhaRP4i A7RiYDGcixmpmOQb tInaJI2iWMVijjqvDFBx fW3tUWQaC4u8IdXhAkG9 NHopF6BdBBKmgyknFi34 sC4jOjWmCyU7HFoo O3HfbvU9OJJsqXTzHOly IHT2S23ox9Q4VKEoKRNn BXS8lZO6jW8toUxwwioy bGVmdDsgdmVydGlj RGqhCWtgD438NLUbuJlv PkNvZGluZyBEYXRlOiAg MDYvMjYvMjAyNDwvdGQ+ XTAsNIM7uTfaXWYd rZTyIEgiCc9cvTnfaGxw DG1tXBNwzrioLBMrdR6l XPKgeWXcyKfgOT1nRZVj rjvjx831WwSeOYB6 YMFhzXTgU7DveF7iIyRg IXWuOQZuY7SucBZsKZtg B118IZezWuH2FSZxafMd R6ShJIJkgEzvElU8 h9I3Gx2Yw6CmlqufW7Dj aPPoQdAbKaekMUn2G9Ww PjwvdHI+JB74WVLdVJ06 QKc1RTZ3cQjeWDkc UTVfM3BwiF9dBxGnIKMg ZGRkOyc+PHRhYmxlIHdp ZHRoPScxMDAlJyBzdHls XW6qDo1bSQRjEFYm iOzjhBTlLvQrc6txOBTr OFbuGZ9ysDmwL2UzrZG2 CBMgb1a9En48Y24xK5Xj dXA+CLUljSC3bBY4 nA4kZwWaDqL5DZvxZ274 MxMncGJiFkpdu2kjb3ft uEf7UlZ5KRTjhdWibAzc CJF4s9FpRs63G03p IHdpZHRoPSIxNSUiIHZh tKyljx7afE5mZa6+PGNv cBX7hZJ7uE2cGaFbUmS2 TFobS990AiHzgCCy Jmzhs7lwh2wugAb7KuSv WUGrtjLmhFtyKJP3p4Aa Qh10N1JveApnp0OpSch3 fc85hAJpk7T8cNN4 A6ObUAYqffeorJNswUym GK3cJXYqxomrVFLjqZ0g EVTkL8l4RmBsIqB4PDfc N9BuhnF5ACRxsFEh GYDekGRJqZ5zlrorn1bu pjhnLsTzXVIlWEc0DNi1 SJFjeKvsAoZoYUM8KwI0 ODW2iFAhiA7pdAix lmkcoF0fTgv+DXG2qSQx wUVAIL6pOupxoWD+PHRk YYI8rZhaQCuxNTLqyU3d BKUkX6i0UqUcFnO8 TVcpU9KfkjB2NUFsxAMd CDBecNUIgD8gzaxtj4wr yrxxUyLeQZPtGBd2BXf7 LWFsaWduOiBsZWZ0 TaH0HVK2xYUssI5trUjy wjprjZ6yDrv+QmlydGgg LXA4AAh1D5GlLop4QHEm wBeuBF0hrXCoTBmo Ta6zsSctxNwoKQ8zPYYo ttgti666YnFmv7ntJUDx sIPhBXljXHC9H62ol8R4 ZPEaGUOmRBO1uTT1 fE7ogSmcuynvmHXyrIcb bjHoiJquETmwFVsdR242 EBHqnPktThNcBTg6C9Kc Gou1GTOwaRqhTA9k xDXrXJwgYl1usJepjFls IX1yHOXegjizs309FnQz r3bkDRJbbFUbQCwqTHD7 M62wd9U5XCQbTFFh OTJ1fAF5kH8upHgnfwwz bGVmdDsgdmVydGljYWwt GOzeP726STPsqHziOmKm rPa8T7DvQzt5DLGe bMbiFS8diTBsHArmVk9p pGccmFkfXU1xDWPdsxwb s257IdCtz5qoQRUluLOl ORrgUHD0Z99mz1K1 EQIzYUOlMAI0cSH0vH3g bGlnbjogbGVmdDsgdmVy xPvvYQtgFNedJ547SWKg cDsnPlBhdGllbnQg IBpfWVz3Z7DaGkdscDO+ TB84JFPzLX82pVAroOHc h7sdhKf3LcHaVZUgDHJ2 lHlcQKznn9LsDRCp C85jrTBfi7D0MYCweLbt zQBxGaErtKQ4jH1dXMbl zorja6raeedrDhqwn5xl zv30fR83O78zDIav ZHRoPSIzMCUiIHZhbGln ze4ysS2tPe4+PGNvbCB3 pJK6cJ7zOHScUpM7QEkt C946LoUjlLOyEzya c8tux9khpVd9RiP2BRTv kzDxiZdxGPC5a2GlGk92 U82bRHitWTVcFNIxCPCn XIOseZwdbx1okY3s Ii8+IJKimUQ6jGR0xM8k KnJfHjN3VQnvJ336HxWd oBDlOjhaF87yG6BhwDY+ JSGyYhj6JEAejEsj BM6flRRgUPhsIf0iJZB8 HvUsSiGoVMisZ9RwVZKm tmrrmelvwGN7JONeQSMw iZ27Em4frFdhLTIw pUISeD5dzymey1krrsly IpPjAHThJMn4NNj7CCMq pCjiHzIeVFM9WgA0STN3 lVRlsA9szWnwhuaa bQ7gN5WvVABriqplUc74 fS4hBvWrBmU6GGhrSeb+ R2SCMwsuJD0RB6cLYSur SzwvdGQ+PHRkIHN0 yIneJAuaJWLfwI1pBRYr L4h6YtGeOiH2FProH0Bn EKEhzryeTz76rG3sMyVh JuD8MDlhB9HydeQ3 CYTcsQYkMHlkSYD7Y76a p7G9FAQtOHSgUTV9jAU3 uC4sqDypfxhhiMVsqXak dmVydGljYWwtYWxp M788KFTgkLvxVrYoWjT3 TwJ3EgZ2U0BmGex6QWBb aCxcBU5zzCZzCUdePr7j vOmkpVgkRM7gDXFh mplrYHQouZ6lBEXgiMQa rEyaMI9eNTCrrcyyf873 ApMiEJD7JIXtsMQtS8Eb fN8uUyPsPINnLKEs P0RfyZJnFBjsK190SFvd TbP6VWHmgyRyJ8BbUBId rXwaFxT0h4N3Qk55HKSS ZWFyczwvdGQ+PHRk JZM8qTuySKnsUYNrjH5e QJNfQ0u2TuDcAzX9QJgl S9KcLBJglvwuDh71uG9e JiGuLfI0NQhsR9Sf ikW0DKWdvAJjBFiaFSL1 Y80el6B6XZAiCDZiFVT8 eQX3nR4mmSwokzguzGZf dDsgdmVydGljYWwt MIqzU814VNMbfXfdZc5Y RCX2J2AyKjf7TBSpeVvd VM2wlZBcZDljBx0gxPip aRtfIL9nVNGcdstg DEWzpB1yYWGufAXemDrg AM8wLEZiwvqty417RhGh ZMF8NXLemQNiF8MbbM1l UdWvYSCoPWTuQ5Qy uNWkDRcdR819ETehMvM3 SHKnpfFjQ1OtOJBymRca NoT2f6R7Ad3HDZhahVC+ MT46tf79V2VnHeln Zie7BYOkWLN0mPO4lN1g OATbBUyqp9R4yED4X1Zf xpPspa3il2avYZOvZTsf T84pfEOhv8Z3YNOn lJK3CDRwqFldMyYdbS33 Oyc+JAOobHgeu8XvGwhi z0oem3gkuLi3ZsWmAXQu lpOqzVciQPM3h2Ft Lh83M79uAMxrBHIdMROl VTSsUJLbwJshmv6efC3f Ii8+QCXbnLM3xXG5gY2n UcDkWbJ0RXyhX744 SqTtlYTpGacyc2xrr4jn gNh3GhVeMWAixiFkgOvx MVG1p2TfPb88Y2ThjFah o1LxCgj6hr62bYXu w5T7eNT5S4RrFMYxqche zHYyyUpvWQ7vIDAzfaaq OSXbdF7fIIYpE1r6NqAr QuV6JAedO7XclaL6 VWWxjAMcGJOghJBIqJ5c brhif8ewdzoqJrDhFSTq VBp4ZNl6QFPbeWtzDrWp NZX5DuM6TPE9yUGe pN6ceMdrodhilA1fFyh+ UVy9k9qbdOMsQY3ckAT6 GC25AV93dFXdp8Q3wPB4 Y3PxPYHthffzemre xVF7QAZyVGNqjR78Mb3v vLuxJq5jDJToTHZ7YDXy pHYoR6HyvR7vIyTvJWEg LYJhH3WblXSrQRhz F036GVrhUiS6DBAxdsXd G7QbJAIdsOklIzV4k2F4 Eh6EVR90ED71MQ32nXKl p8H5oEY4W7UfSFLy zjuwenrssWA6TAZkHDRl bD72Il8xcVmeZb2uPJGx RZM6UYKgcQSrI0YewL3o NcFaAPVaSMTbW8Jg eFUwQKpjB662PAjuYuC0 OHEsmvDaR3FyAPGwtJzh UjW0a9C2Cl9FNw64SC42 GW52sEZrt8V5iLC5 Q5NlNRVyfrxbeppaaXD8 NFZqBFCppO50No9tvZye Xb4yKKAfDKX5YDQddWLs J2XisD3oTaIbECVg LWZpB6BreANkTVmjI507 FCxhDcR6JRVyodTlS2Zq BNEapLsiCaT3t8V3Gq6J HCczvci8J3ArAlsu dHI+NN14WIXkSL43wYBw vSVok5wgoXg6XyRnFUJg CWM7mRtkVFlks4FiPNCm D53gtMBsh2D5LWAr bGx (more content not included)... [facility] Coding Summary HTMLBase 64 VknhlcajJCl6uVg+PGhl YWQ+HC2CYJIxV74krPXd mY4mP4GZUIzLVamrZWCC TRkXMkRfeyQqXI7hbZYl ZXJu IC8+YU0hAUCbLilzvWVa a8T5uVW4S73cxp8dNBsk aFW1RFZwAtKfqbkql2xz pAx4QYjlBvjfJfVw GRVwxZ25RKA2iH27Ml21 eIPvrNVzc9zvfPw8VqSb PFGiEPX0vBgoONtzq4Ok GTTcK40gxRUyg4Q2 IGNvbGxhcHNlOyBlbXB0 vM2aIOruendzt9biiqnk Goo7jk14gRHfh8L9zCW3 R6RquiE7EDBzyYTb IytaaKMAuJ3qdryvs4qy tlgcUoDbZTJxAPt0CEk0 DNJdyVxtJbKwKL00JYV6 QORqyoBnO4HbVYBk qLqgClC2g1G2Ja5WV7HU JiryR6XIOZEQBJsqtEW+ RE02zl19F4XaEqqwEay1 CESdJZZ6nYB7aL3n ICGvVQfuk5D0fQG6Z7Pl ogFioh9qc2daDQAyBEox Y98txMYpl1W7NVVlaWF2 YYAjrXxvLgOvuA62 Oyc+YYCaiGfzb5CqMfoy o2obu2udeZk8JsvfDGVo ahOxlUxdUXQ0h4DpIt2g HGVgzAN1hCF1fS9n HcKoTsR6DCjqN376CaRv mETiYugqF56xM9FhoUM+ XZArBfw0JDMouDktFA4m Z0AmMPJxvfhrcGOw eEelTM8dBREzetwaIKIe vG0tYTPuT2b1IgUhNcQ6 BYbbR9PzJXFfjrtzGa09 mN2hDsIfZpR7TFee V5UrrvT7OYOvkSXoOSfm HDW5N79yk7Y1IKFaCJAq LIV9qBU0oH3hpFxadycs bGVmdDsgdmVydGlj LCmzFZiiK220FMTcuLmp PkNvZGluZyBEYXRlOiAg MDYvMjYvMjAyNDwvdGQ+ LPRrQMR8dVysUXFh sIKyAAqsSo9ktDmoxWmp NH1tVZEayyonKUEdoS4g XYHqvOCrzWddGY0vOHDf kygov386RbBqWYS2 QZEvqOQgB9SqmS9wXbHk RAGmWLCwM4ApxBSjABpe S829RLzqSzV4ZHNdmgJm Z0YoUHUrsCvrUeD8 s0M3Et1To1TyspvlZ8To mZDsMqKfDrvnJUc7G9Jx PjwvdHI+UZ19YDZdAP11 YMv6MXF7fSdbACds JOLbV3KhwK3zDuNhQRGa ZGRkOyc+PHRhYmxlIHdp ZHRoPScxMDAlJyBzdHls CW8fWm4pRMPvTPFi hEfblXGiFhRig6kaIHTy HOemNQ7onIetZ1XtdOV3 LMYza1q3Kf18D24uQ1Ub dXA+SLZioYI1dHE4 mV3xTjEyIpH5ZDsdP991 FzEfvZRzCtwwy2mtq4xx zKx5JmF6IYSuzyUsiInm FIZ8k1TwUn58R02k IHdpZHRoPSIxNSUiIHZh jWmndd9qvM8gAp1+PGNv gDN7sSF9rF9fMrJtFjW7 MCquO842WgYlgFLi Tqpjo9ull0dquVf3CwWf NZLcjuDtfXydFOU8p7Od Lz45L6VvlFoui5KbZni9 fs69wBHoz4F7hTT3 Q1EgEJSctsebzZHqlMre QO4mKTRltjvxWJMhxN7d MCPmY3b3FfDfCvO1KMyk T7GjcxC9VSYdoWDk KJYciCGDzF6bmdhkb5pc snwoXbNxJATwIGq3CTs2 WCUpaEmeQkJaJHZ3CtU7 YRI4dXCcnG7lfCzg azffgR8zVyj+WRZ5aVTg eDOFHA8gRdiaeSH+PHRk PPT0zNemJSpySQZmlA3g LWMaK1j7WkRkLqZ0 EPwgD3FzgcC7SEYnhMSu DYHnoHVUhO4wruzui2xx nghyPlJdWLIkORq8INj3 LWFsaWduOiBsZWZ0 NnQ1YUC3fUQmiH6dhKpo kztcsS4aCem+QmlydGgg XQI6PQa8X4WoQtw8KRFh pMcqPT3peLKmCDnw Pc3soAudhPujWR7wQLGh tnpkm052KdAsk4lrKGHd nOAlWYgzFXQ1T56kk6K2 TUObFMReCFX1rWX7 bV1bmRxhooycqAXynDgt xzIhfBtwCXihPJjkG170 BDUttKnyIpZbOJa9I5Vd Bck6FYNuxLwvMH2t zNWhMGitAv8wxUogbAgv CD9uSGZpmvzpj078BfVb p7vrDUIjyRUqJIhcYWT0 H57yx2G0SYAsIPVz EPJ1kUH2gU1glUsodeqd bGVmdDsgdmVydGljYWwt JAqiA887IEXgoAosGjWt eWh3D9ZhAny4ZIZy uTaxBI2mgNJhWQarUm3u fTynjHjdMU8hJISprhqg x550NsKmq9grWZFsjWCt ALpuMXK4R78xn3S7 CRGuGLXgKYE6xHX8eT6d bGlnbjogbGVmdDsgdmVy hKmtKHpoDFvqP099MLUo cDsnPlBhdGllbnQg NHjxTVb7J1WmWlxfeZE+ PN44GBHxYR21mUGeuCKo o2pmxEl6BmNrTPRrICY9 zRvhOWocg6VbWMQl Y48cmHGuu7F6JGKtrMca wMDsDnLrbAB2nA0gBUjn citgz0zhjmkaDjlgj2xc it04fG20A20vJPbr ZHRoPSIzMCUiIHZhbGln bk3apL9rYs1+PGNvbCB3 jIZ4lN0pIGAuSyS0GIri T178CyBgbCRcEfny p6ujf0btvQr8KwK7QXFz zdZddFreHWS2w6CaPt87 Z36zLQphAEXqABIsAMRh VOBvxNnkqa5wxJ1o Ii8+URNsqSA1eJO8oB8s FkCvOeI0NBbbR200WaNk aSWhCytrI86pU5XbfIV+ ENIvPrl7FNHgdUly SC4seUBrOUhwTp2lSDP4 TaMhPjWaOXgqU4RlVLMc ofjtocqyvNX5OMGfCLKd bZ87Uh1hkGxoSIGw cFCIkS4kkfgdp0hprdrh IdWaUQRyJYy6QCv6SVZj aYxbOnLnSVW9FgL7GSE0 fPMwfO2fxGhjonla mE7lT3GmUJByqmjeAi48 oU6cXfYrDrU9ECnuMdw+ E1JTOwmmPY2ND8pLEXko SzwvdGQ+PHRkIHN0 gYllUUpkWHKkwR2cTGXi C1v3OsYqSsA2DTdbT4Ff QUMxdsnpXm92mB3cUzAp ClH1DUumL9AvuhB8 WCKfqKAuSUerGMA9K66x p8S8UBTfBJIuWIP6kRF9 mE0pnCuqrpqpzTCtfMoe dmVydGljYWwtYWxp K044GGIayWcmRqEaQuL1 CvX3BlJ4J3QmLsy6WZHk jNucYM0zgPJbXQadQa4b vDqplZvsPY9eXVRf rtieZVBdiU6uCVJmeFAb yWnqRD6gIDRzfvbmc078 SuJpLZD7PEXoqCQnO6Zg iT4xSkPoMSMmUJJe S9SytQNoQGauS023BPrc XjA5FKDnjyBpA0CpQGBl xYxyLwL0e6K8Yd85ZDAT ZWFyczwvdGQ+PHRk MBT2fCnqSPmgWYXlpS7p NZJaF5u3CkGlTmA1ZUhw P1EvKTCqvmgwCh36zM9e QhZrObU5TStqJ6Ik ywZ2EYStdKGrKIkwMCF7 D97tg2A1JZHfAHCjZSK1 jQR5pC1caDahlbebtZOl dDsgdmVydGljYWwt SLcrP871FFBtoAbaVs4L KWV6J9WtZeq3ZNMqpKhl YM1guEKyBUyrOq8qbByk wFacME7fCBNrwjuw KQCnzL3gHUFzwDPdkIph UR9fVTOedjovd135EbXi IID3XXUscOElQ3LrzL9k VoBcRJDpSLNvQ5Eh fHQdAVviZ853AAsnFbJ1 XNRaezZzP9RwOBIgyRjz UgS6b3V9St5KKWeieFT+ PQ05ft42Z4LvLoop Etq2KUGzQQC4gYE6qF5y DJFdHQobp7N3rOP5I5Zd raAtue9uy5skOYPcWLtt Z98weFGwj5Q2BEBy vQV8ZLObvKssDkEpfW49 Oyc+MYQuqHref7IjGvbh k4jrv1kowWt1HzVoLFZg nkUcnRqfORW1j0Li Tp87F31yFYnwJDWeNESm ESKuIKZuhBzmog6svU9d Ii8+GSQfrAA6uRX8gL3t PgGxCjY6HDveQ154 PyNopYFhOadxb5snz6ki uLx6TsElTBCtxkXsgTca KME1d0DuFj19S3RjrTmv q7FdZdt4sj21rLWv c0J1pXW1E3JpGAQbkmkm lJPmnIhiPZ4eCFYknrfz ALGcmF7kLKHyV7k9IwYg TcN0MSpaF6ArqhP8 ATKvyQQdRMYoyZATcT8h glssv8mybawtZnUgBEBc SEx6UGk9HUButEtzFnCc XLK2WgD2URQ7pMEx iE4dsPvinqqjjE3pZug+ RVp3t5yfdUSgJX9swKZ3 XA73IG45vJDeg8X5aSB5 K2UgSCXbykotrnhe nPS9AHCqWLOlfH61Fe1m zDqlFf9hCPHdPYO3NSKq pHUoA4VzhF9aTgDpGFOp QPIdR9FayIOpUYvf Q095UUenKlP5ZZVdemVf W2GlFIIinOrsJlN0y7M1 Zc4ICV16OP49US09jGSq d4E2uDR6I1JoXMQo guzsutdubRE5ITMgPBCa aV61Xn1sjZaeNt4xPVZq CWW9SEAduHLbM7FldQ5g QeNrFUYaEKIyM8Ly xPNkWQmnF346NBgcSdL1 OUNymuZnM9PhRHEqkQod JxZ4j4G8Nx7XVo72RD00 HU86bCTqn7X7pAX6 R6XeFLJezarvtjnkrFW3 ZQXeUMGlxN14Bn4ydYhl In7rVLDbKHW0WTVhfJVm E3GpmM9hUfKbHHNy CAXhC3BqdGLhCAivT589 JUvnNfJ1LHOeybJrA3Zv JITcxGtyUgN3f8P3Wz4K YGahkpq5P7GxJtqe dHI+VZ29AJIlHF44hDPo gYBxb4hmzFq2VgOaJZWn OSX2tNtrQNisq2HdRHFh R23oqBKjv8P0UWKl bGx (more content not included)... [facility] Wound Care Noteon 10-28-2023 Wound Care Note [phone] [id number] [email or web address] Note [phone] [id number] [facility] Coding Summary HTMLBase 64 TmllpythPUp0qEx+PGhl YWQ+IY6CWMUiE67ciFBp iI3mX7ICHMqYLsouBCIP GGoFMlKovuDwRN4lzWOt ZXJu IC8+FZ1dZTYtXpwxpERp r9C8kMP8Y41eln2cMPcg bPC1VSRxHcMpsmsrb1mz cFh5KRkkGgugFyHu HCRhjW47QJV8xD31Ho53 gJOrbHXjp3uzkNy6DpNu RHYgEIK1uMioTHwqx2Dy XZRdE91vnKZwv1L4 IGNvbGxhcHNlOyBlbXB0 lC9dYAksevpes5cjitsc Rsr0ks48yOJuv2T0iVW7 O6YbnuY9OYMcxCJd FwdnoZKErV5opcbbk8tt ezapUmMySFDxAZg9XRx3 SICkvCulQaJnGW64LKC8 IWRdnaYmC1EtHHHc aEefJrE3o6F9Lv7EO6KY PhktS0RSOHIMUGpqvTM+ PX63xt66H5IgKtneEch7 HNTjKUF6hIZ3aT2z RDTeMBhfs3V6jET5K5Tt vgUlwy5gj3izISWoNMju G15hqUQqe7V5VYBysAZ9 ADOydZwkPtKexT56 Oyc+CSTlpPzgd2JvAbod w0zou8dhcQp0RwltTEIc qrKuxMsaCQF9z5DyZj5k NYUmzTZ5zWQ8eL6m HtEhHkV8UHivG498ArUh cECgDjpoU88xV7TohKR+ ISLcBjo1GGVjuNwoRR8z U7MiTOAieexpoNCy kZcuOW4nFYBdmrnvHVDb tG0vXSXgO5w6MhWtMrB4 LNncK0UwITVxzuffYt25 uU1oGkWoZpP0XQfk Y1MnyeY6IJIfkHAfJXna GNI2Q38em7J3PMUfJTYx UOF4zRT0kG7evFmzijeo bGVmdDsgdmVydGlj QEkaCMvxT268HPGvcKgl PkNvZGluZyBEYXRlOiAg MDYvMTIvMjAyNDwvdGQ+ VGQnWWB0nTqnLWBx qASvFRfoZq4lzAgknLfu ZC8zVAGvsrbiIKKacK2f EAXyqQJgeIbrQW1fLBOf euydb830SrEaVEO3 FFDatOCdG1MucD4mZpIp EPJuLCNuU7SgnYYrZVde S021BFioHfQ7WIOfqtVi E6XjNSTneXywWxJ2 y2F8Tt3Dw3RmrxkwA4Mp nEXvHsPxBfriPDg3K2Su PjwvdHI+GZ56YENnTK74 ZLe9RJO6rHmnRGes YEAsZ8PfqI1uByYzXMOj ZGRkOyc+PHRhYmxlIHdp ZHRoPScxMDAlJyBzdHls ZN1yOo6yIZLuYJOf jRimaJMsWqSiy3goOWIs ESctTP4vqZgoC6FswTF4 YZXdl2l2Ie62W91vC4Nq dXA+BKZszQN5qOF4 qI0kFrHvRoQ9PUgoY476 RwYcjPJvUefon1qnd1ie wYf6MjS4YGCqqtGusFgs TYW7q8KoBe05S50s IHdpZHRoPSIxNSUiIHZh lQrdtp0mkY3oIw1+PGNv gUD2fBJ2aU0kTqJdKyN2 NEjwM286AhZphUEo Bzbia0clc6xncXk9YoOa UTWdswHpiYxgIIQ1u5Vx Nk62D6KtmAewt3HpTvd0 kl99fBNfq2L1wXC2 V0ExMWZkhzwjbLYblFsk LA3zMUUzdeovBHTjyX0s PMBqT6l3PlDzTuQ3HIrs V7VlqyG0BBZoqPLw NLXuyOBKyE2dlxpef3fw zjbuAdKkMYWmOKr9SSr1 QWBmyAtlAgWmBLA4NoY8 IXB4qNTwaC4cyTsq kkbepP6lHxq+GVC3eHEz sFIZSO8iCjfeiUY+PHRk BSZ8fAnbMOmeHMMhaM4d EJErI3k2VgQgJuC2 LGwbX3LevhQ9BDXauNBm VYRjjLUTeQ0aktzvo0yp crqoViEdEFQlPYm0ZYh3 LWFsaWduOiBsZWZ0 ZxP6TST3eEEpwW9epJuw fyaujJ4uBps+QmlydGgg MIU8VPr1O5NlFtc3VHSi qSzlSF0mkZAbUSoa Fl7ekBszgPecCR1zFPJi czjtq873LlNus6ajKBKq xWLrFEksPSY4Y00qd7D8 IAXfQWMeIBB7gIR4 fT5otXhyohjrlKRovSaq noOalFrxIUinCZrtN002 XJCfsGamVjVvSAb7N5Xf Wve7AJSwlVgaWY8a nLRrEZlyWw4rcOtqoQfz RN7jAIHqgmukw531TyBc n8zkLWUtzAIhUJatFTL3 T30lu6I3VJNxMTYo NWK7xAL0bL4awCfpekec bGVmdDsgdmVydGljYWwt QRcbS571XILygMraHaKm hSr3G6UuOox5EFMv oKzsCF1qbDSqNRqlWz1q sLrjjPgsCH0mYFGuucpz j960EmRsv3bnDCJafCZf AUisRBR4Q54kv8H0 TEYcGKBfYEH2yUX5uA9z bGlnbjogbGVmdDsgdmVy kUhpOPbdFElgR191SWJt cDsnPlBhdGllbnQg HKieRZk5Q7KhEtzmaNL+ AB95FFAvMC38oASbfGNi p6onyQc8UkRgYNXoIHN1 eVvvHOsbr1HbTLQq O18qdCVls6M6LWTbxKgw mWDgPbTjxHD2hH2eYLpz izoix4nqkxzvHsfhw6dn di56mV37H34nZMbr ZHRoPSIzMCUiIHZhbGln it2fkC9dZn8+PGNvbCB3 xNK9oA6mXSXqRuL6HUjc I234UrDviJHiIdtq q8abc0ofgEh4ZhK8BGZm ofZlfThiCSN1s7YaMq99 X97cKKroQLPuRFKdPHDo WLAlmAzxuy4mpI7x Ii8+ZIKqkRY8pRI8lI1v NcBcJfV2HFrgF626ReCo vCRhBjwxM53aI2UrxBJ+ CZXwLsf6OTPguIor DP4mqOXgKOrvCt2qIFL6 RmCtMtCyDJkvJ6TuYJLf acvnsjuxfDI1KVLjDUFt uG40Sj5jqTttEFMx jHCAdS6ziafzd1auwrzt PiVkLQYgSWc7FVa6OCDo kHlhPzUpPYX8SnD1JUD2 bTSxzD3iiFfxhdzn vH7jR3ClFXGskohoHe82 kZ5jHaQjMiD7JOccEpq+ F6ZTNeleZD4PR3fGDDvi SzwvdGQ+PHRkIHN0 vHbwHOkaPRBbnX2jMYEw F3i6YpFsVdB9ECsdD0Tp JETdpjgqHk77aJ4dIyFn HpZ7TAcfJ7XrqrX9 WMIeyOZqRWyiTHQ2H64j e6P5FVOdBGHlXNV1xKJ8 cN3csFonyfjmlNCesRnj dmVydGljYWwtYWxp Z181VTHywYkeOoSyQzO7 CdR6PpO5W1TpLvv3HINs wKkmZW7alUKmZMyaKl3w aXnokTfcHD9iNBYd wrkdWLNclA6kESSiaQFj eMfhDJ4pQHDnvqtll673 XgCxAXM7SFPmzOHxT2Vu iP0hCeZxQGWxUJTx M2SxnSMfMNooS919VVcc YjQ9JKOtciRyC2TaSBCy rYvhYaT7f3E8Kx53OXPC ZWFyczwvdGQ+PHRk MOE6wFvzOHhvNAViaX3f LPFtY2z1EmPjGtD8BTzn I4FrPLVeezpwGa76hX3l YnNhHdD6CQxgV6Dg arU8ZIRjyFClFHcmGBR2 J43mp7Y0MQMiPHCuRZJ3 kJP6pD0cjXoyghkzjFFr dDsgdmVydGljYWwt GVevI491IJSirOtvBr3L ZUR3N9BdLqs9GCOnlFkl GF7gpIGkZKeaVn0isGuq rAotFH3jEVLidekd VTGjgC8sCCCqmJDufYuo UX6hWEWzjjomx074DdCt UQE4CYYqpSIbW6GqjC2g QfJcSHBhPUKwP0Uz bSQnIGmsC583XTkrCsD8 MOXyraBtY2SmNUNfwBbq LgN3j7B9Pi7EHVmktMZ+ XU97oo50M1JgJaeo Ooo8XUFkFGM0ySV1cC8q QQKcUXqzb2P7dXT2V6Kt uvSgvt6yk9wvXVQyNHxc D27xaMMqp5H0KRXk oBY8PSUqdLosAmMdsB74 Oyc+GXKgcBmjb6AfRoif r1yez8oykIh5ChFrZUUb fsGefHpaNDS1l5Uc Tj60R88pYSjiEOEcXMBz OQMgSXPyjPcxmy5ihV4a Ii8+ALUivNQ0zBX2zA2x XuQmCzA4UQtqC970 GfMvqQDdRvauv5dtn7wo qLt3FoDsMIRclmNqnLol JSA6e1NzTp46Q3JdjEbk x2VeRoy3ll31dRQi e5I5rMQ3M8MgAVPrsdsp xQJcgSjpMK2zWTIjoaos NXJeeZ3iMHCbS5t0RhAq HuA0AQvdO3ZpcyA4 SLAdtRCrHKXabMDXcA0g vngid5brhjmkLxGvGWLh OJv8YQy0YJAtsOkcXtCm RAD8ZdG0GIT4wIPx jH3iqJsqzrweaK1eXsv+ ZVk2t9oraIAbES3cmTK4 XJ38FO63kHFam8D0pMS0 F9GhDHVehzxlcrll yJM2OKYdUTIxhE36Yq3y nObsCr1nLYTaEWK5CMHj xPNpR1AigI8qCiJjNAHl KRAwT2NwmAGlFKao M651TKnkOtY3RWPsiyEf Z1FeVORycIxjVqS1d2Q0 Vm8EDF81ZN01KR44aTEd j0D1vMB7J8KbUAJr vzyiwmqckKX1TQEiAUKd mS44Oq8haHpgVb0dPIBb MOP6LCWutLXnH0SadT3c EgScBMLsSSYsD9Qb pWQrNBchL126YQixWhR1 RPBuzhEuG0JrFQLkoGxt XcT0a9N8Gq2QWk24KH58 EN50eXXtv9H4oQY6 U0XvTWLuneihqmkzsZE5 LAEpXWBuoK38Vo7vyXwe Gf2mANZxXVK0ZGLhbVCy C6HhhL1pFaIhMAIt UWDrB6ItiGSrIGymW587 SIsaEuP0QPLoadWuU4Fv UGGihHarQkJ3w1L5Vy4S DBqnwom8X8YgWbaj dHI+GM26GVZkRK97pAKq nYAgr9ghzKc4GlSpAQEk CZX6pMniIVwys9RmXFBa I27riYFlp1C6IFHj bGx (more content not included)... [facility] Coding Summary HTMLBase 64 ZccweulzGLt6mEa+PGhl YWQ+DW1YVDHrO53nhSVg dN4eW5RNRNwZFmveYQGQ ETiWKtLbfzJzKO1rjGAm ZXJu IC8+LR6cNFFjCgtevRSy g0T1uYH5X52cxv4tRUfl zMM7KVEvKvZajoybq5nu tYu1LYqgGfqiNjQs AZKyiB23ZTN8xW00Jj47 aCEuvGDul7sfiNf8FuYv FHMpHJN0gQglTRybh4Op XAGiI59vvEDrd0E7 IGNvbGxhcHNlOyBlbXB0 dH2jUCwtxsjld6wbovkr Qki2vl55yHApe8V8gXX5 O9XpntM7JVOldVKr VwcuuBIZhC3mbrltw9hn ufnaTvPkRXTzRZu4BNh6 QRYevXedJkXqQS64TUE0 JJOnweZuQ8YoUTFt fRcmYaW1u6E0Af3EW4JW BrtuR7PFLMNYUYeetBG+ JR54fe23E4QdBrdxYnh3 HNDyECT4lFB8aY1q UOJdORhwz1S0zWZ9I0Cv fqIseb5za8kbTXFoFLrh D23tvSTaw0O8TJWdtIX1 DOKqzQkeWkKtuX76 Oyc+MMIojPlfj2CvCdak m0lea5vtyPl7PcieDJMs zkVpuGjxELT9v6UtNi0c RGHwnDI2sVF2oV7u CxVbQjO0TCetV733ZtId hCHwKvllZ97oP1ZjmOK+ NIKrMmj1AGRnaLllMN2a U8RbLIVqpkzcpDMo sHvrIO2rIXGzmcruYKSv kI3rEWBiW5t5KhBuGdZ1 VYqdW2PjNEHapwwkUk00 fU7yEgByKfW3WHjs L1QzwyY6DAZmiOJrOJfd JQE2W91jx0X7AAEyOREo OAQ4hMH7pT2ycYjvdtnm bGVmdDsgdmVydGlj BTfbRQowB685CHXjhMge PkNvZGluZyBEYXRlOiAg MDYvMTIvMjAyNDwvdGQ+ PWFgHDL5cXorYUIa jCRgJYfjWj9ieFefjFlo BN3wMUDacycoBQTlaA2o ASXmiOJjhQopNN1kFBKl qqhiz454VfEiCEB6 AHAfcOTeB3YmhI6mGgCi LWXvPSMnS9WjcTUdBHqg B569FWzqTmE1TKArdfJf F8JqEOLbfNivSxD5 b1Z2Xf8Id8XtnjsaA3Nk wKIiMiLrNpadALg7O6Qw PjwvdHI+OB08SWYwTJ68 AJp0CTW7mDamDOud NTBnM4KyaP6hTnDcUHFx ZGRkOyc+PHRhYmxlIHdp ZHRoPScxMDAlJyBzdHls LX3oRt9gFJLwFUBf tPdqhTBjOwFqp0ieVMSl VAwkJG2mfScuN4MknWT6 AZVlr6b6Lj63F91jW0Zc dXA+YVIxrGN3lHT5 oC4sDsQbYmE1BAzzL731 QaUixDQwMcmby0yjk2ke fGi1JfH5ZKYquhWzqTzw DVP7d0WlPd23Y48r IHdpZHRoPSIxNSUiIHZh wAaual7hoO4nIo1+PGNv lVI1xQP8sF9fYkVcWvE2 VKtoR802VtMuwNIr Mmpzo1iia9puaGr1IwZo OAOvxhIpeLauMYW5u6Nm Yn11I7PkbQevm7CrXiv1 ot06aKUcu0U6kRB0 J6WtAIWlxcqopDNraMim OZ3uZRHwropoWFDhcK0h JZMdQ3a7FxSyRlP2DBel L7CwolX0VIBoyTMl OEYdfXHDkE0cslkmk3fq gwqoVmBxKPBfBDs8ABu1 VAPwtGjsSfLcUBC7LrJ3 INR6fWYegB5ioKwq fjeqwL9uLgw+UVS7kXTx nLOODS3sEsjciMG+PHRk BDV7uVrbHSzzQKKgcP3b CFQiY3w1WoNlVzV5 FZlbO5PiixQ8KOOzeXKq EDDldJNTiX3mvtteo8lq guvpWdZoHAPdCBg1LAt9 LWFsaWduOiBsZWZ0 NqW4FXN6xRTxeU1pcSdx vunqmQ5rRvh+QmlydGgg PZF4UWh9N2DaCfu9XIOf zYeqWP4lnRZxZVpb As9ceJedwHxqRM4uYHFi ogzqy846GlNnx8brRFMh oBMgAWleBFO0A07wf5V3 PVLgNOEsXMS1nXV8 uI0jcDfdcivrnRNyjWfz ntZlcFwpRItxGZbwJ365 XUAkxJoiTtXgMTc2W1Xr Bcu7WLXkdCokQY0q lMZrISqsBp0zoMkpxAes OG9bBGGlotyuz610VxBe r9qpTIBaeQZxRMzmQAN7 T56ek9I8UYVnYPDl GFY3lOJ2eC9siDlwuizt bGVmdDsgdmVydGljYWwt GVawP854GUUwvIivSlHh qDi3W1XxEqb3QPWj rBhiWQ6gtAHdXDztMh6w tJyzaKbxFR3kHNUzlyvo f830IqUan3wkMXTqvEWp IKseOXY1Z72ue6H4 BTAyBSJwJVF2nEE3aC3n bGlnbjogbGVmdDsgdmVy vEmfVVbwRMkfL037UPCw cDsnPlBhdGllbnQg FXawDOg0F7JgTlptoPB+ TC45NIBdHB53uLNcqSDt v9ncfXu6VjJjUXVuICT7 bGuqIElyl5EjOIZa S62fhEBmn7H0WPXooHne iUXwVtRzpEQ8dH2oVBlf uxoae0qdqewyUylik0gn ji67eK94T31hHZkn ZHRoPSIzMCUiIHZhbGln ww2fbD2pBl2+PGNvbCB3 aTL9vH1mACVaMkO4JOfx Z542OoGzwERdBvxo h5rrn9abiEe6NcP5JIDc lmTllPlkZFI2y8JmQz79 V78eXLwlXXBvFUJuABPt AGDgcHphwe3pbK2s Ii8+NOYiuGY1tKX2pY8f OiIhQwF6DLevF537DcAm mRZgOqcvT19kE0HczFO+ PDSpEvp7SMGeaBll QI6ncKMeATyeUl1yRGX0 BvHzZpQkRFqqV7DsGVPk askatqohcQZ4AGEjQXGc qC91Ag1qmTrgSONe qKXWvX9ujbpoh0rbiady CgTqDJWnNQx9AOm4BHAt wLgtDnXuHOF9FhV4ZEG6 aNNauN7fuHrdtztv oV8rU1VuUUKgkfluQe17 hQ5pRnSzKuJ0ZNrsJtp+ M4UASsrmTC5ZU3qMAUuu SzwvdGQ+PHRkIHN0 hZmvLLoxIEMsnZ8rEYZg E2q8SnBaRkN8LCwoI3Bt GPOshqpzQy96sR9zOsAp VoO9LPgyS5WnboY3 XCXrbCWaCNedEPI2J76v s2K9FSWqYPFoQAP0pYY0 eV2wgCdxbhnwcTVjaImm dmVydGljYWwtYWxp L985LYMorXheAiNtMnQ7 IlQ5VfY1I0AhIzc6TMGp aXnsLQ6ewBBsPKdcCd7p oDcahXwcBZ4kGGXj hhcsRWHucA8nTCPklIOa rCsnGW4vYPMhvgknx468 ZdUfHIW7WIVhvQMaS8Vd fB9uFiAxDDXgJJOu A2SraMOePWheJ286SNmc UwW6DXApehZqP0EmQDWq dWbxMvF5r3Q8Nb88WZOW ZWFyczwvdGQ+PHRk WIP2gYlmDQbsCNBcaJ2x JRFqO7t8KqKkGcY8YQpo K7DnUQYjyartUw74qH9e KdAoKvO4OKceV2Uc jnC2XWRaxZMhEElqYNO9 M34ir6I9JWKtBQWcRFI1 mDF9yE2zcQqqpleerWEw dDsgdmVydGljYWwt TRkqN987BPFfuIfpRb2G SWZ3N1DcVkc6ATQtrKtf EQ4peCDnSMmpFo3pyPsx zBoxTT8cBKOgxhuw OPPwrA8tMJGiqOZwkMtc XV1xNZErytuqr985OdKx HKS1UCDupTFeG3KxdS4t NuGhUNEaPGWcH5Vi jOIrNIvwB878NAdvMxT4 SWExqcQjN5IhXJWvsYgo SpY5n9J1Ng0LJVxooJF+ SL36iy04H7LrCbxx Dvy3AGJjBCH8oBA5yX3h LPNuAKgxf4Z1aJJ4S0Ww jeLegq1my1izCVOoJLzf B94clUIer1C1TMIq bWR0UIMjfLstKhGqcQ22 Oyc+ZTJmuIimd5FvHqrv t5unj3jwuAi5CiDkGUNf tkUrmVauFBK1e2Lh Rc72T53oISugINLuIKHb EGLfQEAfoQvwfp9ocN9l Ii8+HECaaIC1oDN8rY7a UiUqJiV6GWvwL078 FdHmlWClDdttq5yha9sg iHr8TpElNDCelmEogOvw TVZ2k7PjAz46A1HykUra u2AgGps4sm76kEBu i4L3xAT7G0YjHRKnrexs uBCwgTwmJY2sDFPjdzjv FQIygJ9fGCIlY2a7YiJi XoN8USoaW6LhmbJ6 GXKwcFKdMJBbhPBTgU3f filug9bxcbxaEgFnHOGe WUd4LJe1BAQslUzsEqGj QEA1UsT7VVW3kKNc oD8bmVdzjxfabD6tDrj+ EKs1o3zwpSNyOC4mpTH0 OY27LM31rPUry7A5mVB6 X4NrDIMqckkgjzbe rYH9TKZuUQIooZ68Lm5e oTxvVk4dVAVpZZJ0ZTTk cVRxG7TvsS0sXzNbHBZq IOHxW4QgtVCfULqq D856QLxzYiN8VUBmkcQt Q8YlHPYwiGrxGnV4e9N3 Ij1YEF46NH15OO32uVSi i5Q3jZL2N2DtBQPh ufadwfciaRI8JSYtIIXp xG81Hb7erUlnZs7jCGOz PQE2NXOesSZgL8BdjC3l GgYeAVXwBDKyK4Ve sTIkVBjrP572QMocLrY7 IYYhehCfZ4ViBNCawIfw YdJ3f2X8Fl2GCi74TP33 RO71lCYki8M8yTL7 T4GfCFVcrzhshosnoTB5 HUIpXXJzsP71Pj0iaUbz Sr9vFJEzYOG8FRPdwJJg M1KuyP4nBsYvNNTk RWLkM5EmjYLgAKtwF411 OYscTtL6XQSyogWeH5Xg EXNxxEpbAqJ8b8E5Il6N KVfggxd0S8EcJmtj dHI+GN99NRAfEJ08rPRt dCRnx1nacHe3SnIrLIPj DIC0rRjrSGycs5VjSITu U26veSPdg0Q5INJd bGx (more content not included)... [facility] Wound Care Noteon 10-14-2023 Wound Care Note [phone] [id number] #[email or web address] [facility] Coding Summaryon 10-09-2023 Coding Summary HTMLBase 64 IltghqpjGMt3lJg+PGhl YWQ+ID9DIVRzO52voZSe wU7dD1LQHCcTGpytBGTU BRhJPdXxquCcEL8psLOg ZXJu IC8+DY8xDIZyWxhgkTJs l9L0aIV1F55idt7sOHxs mVC4GYVjOtIeioewx7gf zHw5QCdxOjsuJrPt EEEebH26BOD4yU75Rh21 cXBmeKQkz9hdrCa6ZkLf LGMlUOY6uKtoDZnzh6Kh GDLxV49kiEZcc7S2 IGNvbGxhcHNlOyBlbXB0 gF8uUKinlcdgz6sxjzzx Mba7oj91uVJou7K7xMX9 D2LqbbO1MDHmmXJf PlblyMHWoN6dhincs2fe sivhDfHaGVNbRCu4JMc2 CULsqKkmFpLvQR59HEI3 CQMphzKeR7QlYJVq bFiqPsZ9m1Q5Nk9LO5NG VvthM4SMNCPHDYayqAP+ UW68gq74X8BjUemhJko4 HRPcLLZ5mYA4oR5o GFItEObfr7O9gXZ4R7Th hqRcmz8br1tdQKGvCYqv L81vnBPcm6P5FYAliDU0 KYWiqNkbCuXoyT07 Oyc+QHHfcCgit2OdKkez n0scx7jjvCa6FmdvVZCh cvZffBkgXGJ4f5KlKc1t FQWrwDQ4oWM9oZ2o RlZcKaM9HXloL112CpVt lWXgUrbjH61qZ8GraZR+ MBRfBjs2VXOpvLztML5v A1AcMTLzsdyhxETv pSymNA5fDHIobxwcCIVq rD4fBCLcV4h5MiCiVlZ3 KXhyP7CmTZGeixxnMy22 mE7sVuHlPcW1JMve I8JoxtB2GNKlbHWpGAjc KHK3D14vp5B4FIVfNNVz WHT2bSJ1uX5lcEbbnsuh bGVmdDsgdmVydGlj BZdbLBcaT071KCRhiEjy PkNvZGluZyBEYXRlOiAg MDYvMDUvMjAyNDwvdGQ+ IBXxVNL0pFmeEWDz aBQeEXqmZf1mgJnimCzl JI4sVNElampuUIWknA5m ZVApxUZaySnoEP6nZHGk zoxbr574XlAhYQE8 QKXixLYmM6VunY0zEjKg LWWkCRXcJ1PrbXUhQFts P011IDblQfB9BQMvuhTd Q4YxUDOljUlbQgA2 g1Y3Im1Ph1KmkqcuI2Fj kGIbLrBiIdkvYPj0M1Ba PjwvdHI+GO01SYVfPL71 PYn0MOJ1xYygKIju QAZmZ0JawD6kMaRkCKSo ZGRkOyc+PHRhYmxlIHdp ZHRoPScxMDAlJyBzdHls CE4rJf6nLGAnWMJv tSgflQHjJbWck3ycDKDa NZlyLS6yyPljJ2BexQR1 KCTbj7y3Cr90N03sQ5Yl dXA+HTJyrYW3yCT9 sC9eXjLwNrH0CWjrW081 UpCkcXJvFgczq4zkl6po wFn3RwX8TWTeqjWwaOmp PJC0w0HdDt06B35g IHdpZHRoPSIxNSUiIHZh nTjtua2jzN3cWu3+PGNv bZP2hAX0fC8lGfSsLaO8 DHkwH155CzLchJPg Yajbk2dqn8kvnMn0AdMt BNXiomVeyLrrONS6z5Er Bl34G6FqgUmtv5JjPke4 cc37zGRwe0L5dXF9 E7QgHTMjsnigsRTewHaz ZS5cJDDtpnoqKAAhcV9k ORXoU2x4PzGtYeR6IZfs Z1VerjU8MEIzdHAb CIOjxQQLiX7ezelek5rb vgqqCaVrLZVhQCs9XXi7 HHWwyFiwGmXsHZE3GsU9 XKT3rVQuqY8dgHrx pixroY4iBki+UIG6wGQy oUACEW7nKldtyVF+PHRk MMU8fSmaPWpgJEBmnL5o AKWuE9k8QdRtDbR7 EKriG5RsyoN1LLScxSZq OIAhgBWBkL5edmxuf8pv yoirRsCkAPBqNNx2WEi9 LWFsaWduOiBsZWZ0 SeH7VOO3cGGevA3lnCnu wypieP5nJdd+QmlydGgg DXA8PJe8W8MgZfi9ADYx mNtpMD0ecBUxSIvx Cb1heSoohCsqDJ0kRNTq bxgjn079MkXrm4brTXDb eDDbVNrbEEM6O16pi6V0 SOZcBQXzHLH0uNG6 iD9kxKzxodumhELrbYpl cxBqyUtrTLohSBapC376 YSHfhLibJcArKFi6N9Qf Dww1BXDkcMhmRP0w hPXvKSykLe1usDdihErw TP3sOKLpjcgsi928LfMf a6hjGMHcoHGdJCtqJHQ7 I60mu1Z3MLUvYYKw ZSQ6qLE7rO9blTtipseh bGVmdDsgdmVydGljYWwt OWbvI396VTAgsYzeTyWw cPa4F1GrAaz8VSAx gGyqKE5pvKLrMIsuHe0a eDskzIqvVS0dJPMlgsle r124PzJho7utLSDarNXm EWigHJG4M30du8K2 JEUjGMLkKAE0fEJ6gI4e bGlnbjogbGVmdDsgdmVy aGwrVCblRBulQ489DNKo cDsnPlBhdGllbnQg OKacOKp1P4XtAayxmYX+ NY22WNCbIK82uFOpiQUc y3qzsUu6TuWgLURyPDH2 oJpxCUddb4XsVGGm K81hoGGfa4Z5PLVwkOhw fGWvYpOfhJD4bX7bDHdy gmqoh0opzkloLzymv3hb nx58jI93R11qEFcf ZHRoPSIzMCUiIHZhbGln pd4zqY8mGn3+PGNvbCB3 iRX1dS5uQBNpNgG1UPov L460QxNpcZEwMsgc n8xfy9vjrAu5ZgG2IVLl xrYnmCvmXPO2e3HlCs12 O66oMMooVOTyGWCiDWMh XGEhrGsaho5slX0b Ii8+WSBifVI6hTX3kL7n CqAnCcX3TRflF807GyCp xIGqNwqwK95lD6SlbSP+ FZKuQar0SVFveZlo NY5khFDdGUavQn5xLKH9 ZdJmWtPxTWnzG7RmLGBs bpglahsswRM9JKGvQIFy nD42Lm3ntBlzIGIe eZCIeJ4pqvtia5qakhri LbEgZZCvZVr6WXo7NZDl vHdqRqEjEAQ0XgM0XBW9 sHLieW3fvLgkghxr wU2uX9HuQUYmhlmaUx01 dI2aIrEsGgO9VYhlCwp+ S7MZLtbbLK6AO1cARAjp SzwvdGQ+PHRkIHN0 gOuvBThfUXOvqJ8dJDKk F6o8HnKeDuM6BEqfU0Pu MLYozfyxZm55yC3bOvVu HeC8UQfjA0WepjD6 SPKayMArJKelPHP3I05a c7A6PPMlLHZpLXD6mBS4 tO0ggRcickgbaKOwdLbc dmVydGljYWwtYWxp Q356UNGfxRrkWfIzDeA6 IoM6HiM1K0UbFdp9IHWg uYvqDT8bmFKlQKhxLk6c hCgpkHqzGG6rYIOr zqdlJRNtiA8wZICfeHKu fGohAF0sVWRstsnsr642 WfLoEWY0QHTigPFfO7By rA6cClWaYFNzPSSl Z1OzuIGqGUqqI993YLnt PxU8YDRomuJrC8RvGEPu vAjfHxO1l6Z9Zb03QXHV ZWFyczwvdGQ+PHRk QJN4jYguVTssMYHjbX5k PYJwW5l9SqSvSkE8YWxr Y5VgQJNckicbRo13xL2d OzLxWaH9CEnzY0Ce xkZ3EHUsbLVgTDzfRLD0 J79wr7J0OUEeEOZpGWC5 lDQ0dJ0pbOfcdgfipZBl dDsgdmVydGljYWwt TLqsN892GLIanWyaCx6U XNU7Z1XqXut7SZJsrOny OL6hySXlHZudLe8fwIqn lUjnHD1tFZFihivz MFAinE3eMGApxQCwiAyn CK3nKNNhzhebo777EkOy OJT2SKLzeACqF8KykU8w LhFdBLHiUMWiN5Yq oCQqSLmoL082BJzfNkU4 AMVizeUaO2WnNNXoaPkt LyY9v1C7Vp1QNLixzHQ+ FG16zk94C1BhCkaw Rci0BICwLSU1lSZ4iD4j HAMzWZikh3D4yKT9F8Vf weGogy4ta4skDFYcJGju K84tsOFoe5B3MYMf vWW4CMUqlRcaHtBjnC24 Oyc+PBKabZgni7YoJyip b7qic5pmmPm6VpQuIMYj fpOpuPxyAJC3z2An Om19I54hTFtyPCDiTCCa TLCfYXItbAyjmm3xbS2f Ii8+XKQmkFX8hCM0sP7p PiGhLbG9VHvvO995 EyLerFBdJzzpu6zvk6yi kLm7DrYnBBXrsdKhqNhj EWC2b0OrVj96R3WwqJtw n1ZnBjm8ow20xOBr l3U0zYA2L6TsJHVghjpc ySBdkEyuZS1gDDUorzmz NNXdpS3sHUSeJ3i3ScYo MoV2DUbiJ8AecsF0 EQUsmMTfPOTpuCDSbU7x flufr4hoioivLkJyIJGm SZt5HAv0MVHxuManNqWu QDP0FyO7SGN7nCUy hW1jeNzcropycP8wMaq+ IXx2d3bgmGNuEY1thHJ5 LM90PT49bMXro9Q2zCF2 E4LcMPRfhgvtrwms qYY1CNFfEVGkkD43Md0z gGwjTl6bIAEsMTY9QLOp kOCyU2WwhA6tFwXjPFZn JPOhN6EolZYuYTmz C673EMhuFxZ2RDEzcyQv J9VgNXZbvZaaXsW4u8J5 Ya3XOG83MU41CO38vJJf a7D0dVC6H2XwHQWr ckaqmhwehVJ1XXFtMGDp rE67Xc9qrZflNx8rFPWb HFC5ADMfyOSeO4LliY1t OaPmJQMuKYMkP8Ka gQCyPKzmQ170IEbbZdR7 SQKpgwHhC2QzUOSitJhc McA1w2R7We9UHs97WR34 IP57cPCgq5B3rNC0 R4BoMJEokodvqchbrUW0 QTPuYQRndR28Ev9akXva Eh2mQQJvIBG7WXUdwGIz C5FxtV7qSjEuXDTl BDMrR1OrdAJnIXjwQ588 PNrlZnF8ZCWipcJhL0Uj KPZwfAmnHfR5z6R2Vv6I SBinzkj4N4NaEyyg dHI+DL76GHPeXS52pHUk cBXip7gxnJl7LdOaSUWa PPU0lPuaYKlag5FvGGCd T57xzXZrs7G3JHJe bGx (more content not included)... [facility] Coding Summary HTMLBase 64 MosahhpfUCp6fAk+PGhl YWQ+MI8BQZBoD52rsAQo pQ3iR3ELEIhKHmjrXOPZ FKwFMjRxduIkAX7zpYHw ZXJu IC8+VT0uQSGmAeuzaGGu i3C8sXM4J10zvs5uLUll qHE6KJIxWmDglubbt0ju jPc2EBynSddjFdDa ZBGwnF31GDL2fQ63Pc35 kEAqfSPay4fnmZm5NhTs HTOdFZD6lTthGOxpt2Un OVZfN29hoSEmv6Q0 IGNvbGxhcHNlOyBlbXB0 rU0jJDurgwuux7assqud Dwc1aj11eTJrx9J7tEJ1 D5VlacI9SUVnkHNk RwpypXHXcJ5ydpapa1td jmlxTiPbDAZeQVw9WRf0 FXSgoQogLkFjBT79MXG8 SIOesgLgD0XmBZGm aJdmSxD6h7I7Ax3GA9DE LuewU1LXNESWSLnrkSD+ NK20po24F6QuFnowNll4 FMEtHQA4uXT5tB8c HPQcFZwgl4Y3yMA9O6Xe rjAlex2yq8zlWLViXPjk I78mjATgs2A8MULxhVF5 ZLTknItwBjDwhC23 Oyc+SDStlEvwq3AwQgyn r2ytb6hdjSr8SgxrQQFb vqYeeOitHGU7t5DuMw4y BFYdrEB4yUB7oP1a VaUwAsR4MUodJ772HqPv xYNqUxobU79pA4UwsCO+ NLLsCzd6VMCidVvqAY7h K2FfDZSqgphjkJMp hLzxGB3mMCAqoyqqRATh fR8zGIUaQ4z6ZvUcMlA7 HYntD6FdSMNkafztGm29 qQ9nScCjAoV9PUaq M6HvsgR8CUEziYGmVXaf OFG8Y99qs1Q3AWRpPVQs KYF3mTS2pB5wtQtlxmdl bGVmdDsgdmVydGlj AJctISppA381LURpiSye PkNvZGluZyBEYXRlOiAg MDYvMDUvMjAyNDwvdGQ+ CRWdMNA1bPcsZKYv nLMhDMcdPf1eeUejkPmp HW7nRORhmxweSFHnoM0p HGBplTUtrHlrMM7rCPCw doqrt876YfQfDPT1 TATjnAGkB8PmaG2yYjYo QTKhOLVlJ7GizYBiWZyj F988VPesLnR1XESgveTj X2UfRZSipUadQsJ9 d8D5Hk7Sd0PoxokbH1Wn pAHtGdLbRvxsPSl7V7Ek PjwvdHI+FW18IVLeQH72 GCa0RIY6cAhdRKsx EMKzE5VcdF1uEmVhVHYx ZGRkOyc+PHRhYmxlIHdp ZHRoPScxMDAlJyBzdHls AS4yJt1cZYRfLRAk rKkakMGjKyMxq7diDCSa SGclFD8ggJeqF0AsmYJ3 FHUfu2b6Yp04T54nY5Jr dXA+IGThgNR3rMN3 xS6rBtXbYyN4UPpqH775 PcRnxYFnVtykq6byl4sn nBr3YrR2EWZynpEbqEqv ZXY1j9NmId07K40a IHdpZHRoPSIxNSUiIHZh jLxied5omH1qYj7+PGNv oWX1wZQ5gM5oSoUkNyY3 BQlhF479UiTztMNa Xjoja7cxf5cbjZl1IeGv WWOghmVabYvoHIH2a3Jp Ce33B4NcsFbnb1YkNlg4 jt97vHUgz4B1mVC9 G5VcCFBgwncntEUfiSmx CM3cESMpwwmfVEZsrG3t KLDkD9w9PfMqUqB8XSti E3HbneN4DRKbyEVj CFDdvQYIpZ8rvpsxf0jk rvdwTxFgVRLvILy8CRh6 EHVorCihUwLqDXC7XiZ3 FUE9xWUuiM2efWlx jxpnrJ7hOle+CFG1bYGj pZNSOJ2hLkntbLI+PHRk RFJ7jWbeEUqvBLTqfL3m AUZmH2l3MdGkQaW0 XGtoH5BjvcD2RFCevFAi EGKzgCAIzK2kzfaoe1ww svizChMsMQFbXUk9WQb0 LWFsaWduOiBsZWZ0 AzG8BNR5uFWlsP2dqYeb iggauR4tFlf+QmlydGgg RTB6AKv3O2YdOfz0ZYNz hKweMX1lmTNuFJoh Ab8mkIlwcXgzUJ5fPPEz kovyb748XeBlq3tqGYBe wTJeIDciWCS0A39sm8V3 QMZpZVXvZPX5iTT3 zJ1yxUzugalvdSVyuMto npJdcDefTJlyYKchC479 UWSwsZgmSaOaSDa0G8Va Wqr6FBUzeDakZC8t dJRwJWvvBa3wjJfsyWuh ZE2wSBXxcckcy484TcWi t0lpMPJanPEnJJcyAOJ5 E98du6H8QTHmCQMb GHH7wCH5hA4ohXtqrrzq bGVmdDsgdmVydGljYWwt PEklM753JMSbeYvdVxNp sAr9Q1ZiSny8NVFz hRoyJT8mzARhYRpcAb3x hBnloNkpUN8jCGLbrkoi o294XmGdb3zrKPGisYRj ZQerNCW9D23kt3G2 NTItABMbNCX1fNC7bI0h bGlnbjogbGVmdDsgdmVy vWrqKLwnKAxkF697JSSc cDsnPlBhdGllbnQg OEdjBGh3F1NwXpaicPQ+ VY11JPOcPT62vIHfwNUc t3ucfGa4YtGhZWOsZBP3 qMccDLxbb4YyULTb S03luYPie2X0AZFhrPql gZOiKnTgaKN7aD1dKGyr gorns3zaszxmUtinq1ck sp57gC17H78mQNlt ZHRoPSIzMCUiIHZhbGln lj8wqJ8xYp6+PGNvbCB3 jAW3rD3uRHJkYuN1VBov E823WwFuyHNtKbpm r3ucx1quaCh1BrS7TXCt jwFwfNtnXUC1q2HwMs37 B18lKHhxQYIcILJhLSWw BMWlnNoybr6fiP1l Ii8+XDJvfAE4wUT9cA1g WnHcFwP2XWuxS462RrFv wVJqOshzL59pD2KylMA+ DIFqYnz4LNVmjEsp HA7tuDHpJKfoJl3eVVM2 BmAkRtGrSCcrI9KcYRId lbaehbawnZI5ZWVzOFGf wA57Hh1wtVwfTIZw cIJHiF7uustzb0nqqxtg CcJjJOYmIIx5RKz3BVVr hZanGfNzSGU4CxX3TLS4 aESxeT5baJcrgnuk nW0vQ9MtCFVptblwLx00 rD2uJoHnTzW8MEsvZhr+ N1JIKwwsOY5IP9yULWsk SzwvdGQ+PHRkIHN0 oNziVRbySMUuxR7xYFRl S2n2UnIsLaO2XMsdT6Rz NTUiegdiAt67vL2pQpZb WvI7CJvrN6QczkU1 HMRkyEWcTZjrLBD1A79r o5X4UBYzRUYzUNM3zDS0 kV0soNvuyrtpmIGgsCcc dmVydGljYWwtYWxp V451FEIdeMeiXrOyVwG2 UsC9UxH4C9HfAdf9LDMu xLzhFD3plTEtAWvoJr6a bPfomLmoOY6kXYNu qaqpSGQgxZ8xJZQglKWq dKcvIJ1yEPJbdcxur482 UhChGZB0VACbnNAsJ9Mg wB8gQvWvFCFjOJQq G3ZtaXVwSKhsH893OFff RpZ1AEBvetWhO1ZpAQDw cAjpSrE6b1P3Yb67GKBE ZWFyczwvdGQ+PHRk ESL5lWvhNWdsLTHztS0u YXAdB6q7LsXgGzZ7PJda Q2HiFAXhracbFf78eJ9w NwIaJlV1EFndC1Mo aqV2KPVyzCDcSKixGVT3 W35vt5M9SVRvYDYsIRV9 xCK2sM3npVhbdwteuCRp dDsgdmVydGljYWwt YXtnS745AKWglObiDj9F QSH4F6GiMbe2HYKxgGow DZ2ypQIdLSenYi4ccGgu sBlnQV8kBRTvjzbz HYLkpC2eWGBgaIFptTrl VT0aQOWllngkn659RwMg GVO1DCDdyLVbN0KdpU2f LnEyGUNqJWFwG5Yr gPXoVOsgV821FXlgDjW5 ELPqwxOaN8RoGTPruUfe PkP3u8L0Rp0NCUqztIL+ OK64rg36T3OpTjkp Nsr7BZLwCXH8sAY3hQ3y TTDrFAhnf4B4xNP4P7Zj tnVwqg2as0eoSDWoNQdb J31cxDEmt2J6ESXj xXR9IHHfsYfnYbYxxQ15 Oyc+WMPwbRvwg0HdCnqc q8vol1ngtFh1HeWsYFZw awWuqAyeGHC6k4Py Un87A57vTAgwTGGdBRHi JMUsBVZhaIumil1qyF1j Ii8+VNYfoKK1kUH2gI9l JwNgDsX9BBjlE799 HdFyeZIdAgdkc4dtj7yi nPi0ZgVtZKKdxsLcqQgb IYO9a3BnIr71N6YnlMye j6FwYyx8fv59eIEi t1Q8mQI8G5YxWZMyjqpv wLRljRgnMR8iZYBnpfvk CSWxmA8gUKPkX1m9CxVt EvX7REvbE5JhqbI4 SWRksJGoTARqaPUBkK7i alnrv9dkbwxkTmJqAMQm KNf5TAm3RGGidWeoQjPz AQJ0WyH0YBP4kPXb rR4vdFsuknhrfL1yHkp+ GSt7k9sieBZuFX7kmHB5 LF25DD70kZAtz0A9jRB5 H0MkZYLnseyawqci zLO3OOIcCBBfpH93Dv8d hKkjHc5xKDTfCGH6GCTk nISjC3KddG1zGxQhFDXc PPCrJ3HonBJhZClj E720YTbhYwG4ZACsunUs Y2GyCTSeeJveZtJ7a3D5 Xr2MHZ07AJ81AN90zUAk r5V9vZB1X5FbXQYb nvisqdqntIC3KMVlYFDz xV21Tr3wgWzmRm4iJGDx JKD0KNAgvXJkZ5MzcD8s CgQrGTJrTMYjZ2Qb sPBfSBuvJ369VMpzRnV5 NNYbfdBhI3ZgZLJesByn GtQ9o7Y0Rc4TFs42EH98 YK46uHNur4G6xMD4 P7FqFRDpfdpnkjajzGH1 PCJhJGBftX80Qi6dtFuc Ad0mROEgBPA6WYWfkNAf Q3HlcX0oQgRwAAIx CJWgI1GuzXEsPZeiO713 DPplRgW1XYDszfZtZ9Rl VROvfImxLiO8z5B3Ik1Z IJslrsg9A6OyRmwv dHI+DA08HOQaIV73jOIa dXEqo7gpfIi6IiEmIRBj EEM7vEgoJKaqk9FeNHYw D15tcETki1P2BPGk bGx (more content not included)... [facility] Wound Care Noteon 10-01-2023 Wound Care Note [id number] [facility] Ambulatory Patient Summaryon 09-25-2023 Ambulatory Patient Summary [address], [address] - Visit Summary For YRN RICARDO Age: 63 years Sex: MALE : 1960 Address: [address] [place] [address] [address] [facility] [place], [address] Home: Work: -- Primary Care Provider: KAREN ZAPATA, LESLY To Race: White Ethnicity: Not or Language: Citizen Of [place] Health Plan: 1?MED[facility]ARE [facility], 2?MEDICAID [facility], 3?MEDICAID [facility] Reason for Visit: Three month follow [...] the [facility] 26/11 Crisis Hotline -Text [id number] gk [id number]. Follow-Up Information With: Address: When: KAREN ZAPATA, LESLY To [facility] [address] [place] [address]/[address] [place] [address] In 3 months With: Address: When: KAREN ZAPATA, LESLY To [facility] [address] [place] [address]/[address] [place] [address] In 3 months Future Appointments [facility] Appt. Date: 12/24/2023 2:15 PM Scheduled Provider: Lesly Melchor MD [address] [place] [address] [place], [address] Future Orders No future orders Additional Goals [...] 3 m2 Body Mass Index: 47.2 kg/m2 [place] Body Weight Calculated: 84.047 kg BSA Measured: [...] for 5 week(s), 0 refills authorized [facility]h inhalation aerosol (fluticasone) [...] tab(s)(650 Milligram) (more content not included)... Normal [facility] Patient Handouton 09-25-2023 Patient Handout Orthopedics [...] walking or exercising. ? An inability to patent drafter items, twist your hand(s), or control the [...] aerobics, that increase your heart rate. ? Jdjmg-mf-ydlasa activities. These help your joints move more [...] above the (more content not included)... Normal [facility] Coding Summaryon 09-20-2023 Coding Summary HTMLBase 64 VzryijjeDBi2dPo+PGhl YWQ+KZ6BZXQtK39mwELf mO8zI5GPFXaVHclvDXGW CRzRAzDlkaRhHV8ghUQi ZXJu IC8+ZO4yPOLrUudqvTOc f2T6tZN7V59tac0dKVcr vWR8BBVqVpJhjsaxs2fe aNv2GJlqEjesHcZv JMLkmE36GYN0xY84Rj80 yEEubBBoj9umuEl1VgBc JYQxHYJ5cZjyGSdpm1Iw LYGcZ24inQOco3W9 IGNvbGxhcHNlOyBlbXB0 dC1aTUeovdkio7yzcasf Xgu0ko59lPLmg9R9oOA6 W3AfqhM6GYLhcZZu AmkdlYEHlW9vanvwr1eu uqkvKiQdIGRrKNm6ZUh3 IBVjuQheCvKsOO69CDH7 LVBtozKxY3RcEFIf yFhjEdH1c1V8Jy7YQ2EB HcvaX0ZFCHGXKCztzTJ+ YZ43jk88J4JzJhwfPkx3 DAHtEBD9hSJ3cV5b LPSzJQduc9B6sIP2S9Jm klOear0sy0mhGAKiHEjl Z23qhJFkg7C7VOQktVX9 QNFunEnsPnUmlI19 Oyc+SBZlmLkpc1RxCmti k1pus0xboAc0ZklxNLVw zhYzlDmvGGB1x1EsAm1h VUXjaGD9vXI4cR8f IiBzCrK4BJeeA341AvOy vHBjHsxoG61vH9UzpEV+ TXQkXzh8JYQsnXlsAP4o A1YwXCSmbmjhaZKc jFyrZW4eLFXwyalaBMEx mT6dDVGuR7r0QoEjRuY7 ITgfS7GhMSEgopsbTi07 wR2pPhPmSsZ1MRel H6AldoD1DEGxxKVdFExv FNT5T15zg7I8OSAjPMIe YQX6jKY5zF2rrRxblwzw bGVmdDsgdmVydGlj SIfyVTjoL735VQGvcBxl PkNvZGluZyBEYXRlOiAg MDUvMTcvMjAyNDwvdGQ+ UIFzVFR7pSuqLGGg lSVwFBasKp7wuMwysYwc QS8vVMDazjrqNMLobO4e XGYmuXWrfVsmAS6jPYOg iyuzw379SaOiYRG4 DBPkoDEdU5AhdZ9rCdJk QLSfVGXtX9MkpVDdZBgh A062LStkCxA1CVJorbKb C1XrILOcbUejLpJ8 a3G3Rj8Hy4LaujqrG9Jz cRFjNkFmRvcuDDv5N0Df PjwvdHI+DA81NPJkQW98 MUt4MQG8cBllHKio OBJcE2KcgE3tFtSoBMHp ZGRkOyc+PHRhYmxlIHdp ZHRoPScxMDAlJyBzdHls XY4tYz4yFOQfDAXl pZvlxBFbZtDuw1ccZJSh JAhyBY8dsZebY8PxuXZ3 UDTfs7a9Ow84G65iC5Ui dXA+JVYotFW8xBY8 jV5kHoAvDbQ5ZLwqO611 WdZlsNLiSjcjb8ned6am jLd6DdS4EONfoyEaoWmj VDD9g9KeDc58B87n IHdpZHRoPSIxNSUiIHZh aMzedh4mwX9jDy8+PGNv nCH1oIK9rZ4yNrRbTjN9 FKfzK180ZyEifVIk Qudwj4hvm8cjdOl4UeZe EODhoaJfdFmmTCC8m0Zp Ki07K0GqgRxfv0McOak9 ry97oXZyc7R0mJU6 L8QmGPOecfopmKCviPpq ZW9eYJOambusHAEfbE1h WLFyQ8b7KaBxHpT5BDxu B7NtzjU4YOIswDWy IGAlcBDGrY1culoho2en bjigFgNtOLNtYLk6KZl1 ZEQfiHhjQuPeSIC4OhX5 YAF8sLDphO0paPyc mvcwyG6zLsb+JOO0lOPd cGHQFR9lJttanIA+PHRk TKQ6hUkkLVxkYDLyaB0g KERmT9q6SiNoBqU8 DOkhQ1AnhxI2XYFdwXYy JPFcwXATeX8tdxvrx4pn nrmkXwRvLRPiGSd6DFz0 LWFsaWduOiBsZWZ0 LkB3AXB1jSQdsV2cqQpy tokgpU7aSmu+QmlydGgg ZOA8KCe1Q6ThVpc1VTJf hGgbMV9zmKSoJLbo Jo7vtIevwSjkKS4wREHk sonau261GfQao2whVMBw bLKoUQmyVJV8E53rl0N2 TVInKBKqNAL4pNE8 eK9alBhpwscpuZZrpBep ieGagFrqWEhnOOnzK241 GLHnjUtlCmQcJNu4H3Vc Xwb0JHCgkLplYN7o pPRbWYfvLn7tpKsfcOio TA1nRVAtsbzqp051HcGg g5mdGJBygGUiKJsoVUV1 E79nl0N3FRInEFNx QPN4nQS6tF8viZrhfiiu bGVmdDsgdmVydGljYWwt UYjaP849GHLrvUlbVbCz vVz7L3ZbCiz2DLTw zSaoOH0pcMQbOOprEv6x pJwveBheJU6iFDCshhve c587AjFbc1brWVQbmYYw GUcrSJA7Z60de3Q2 PIGpQKOiDDU5fWA1vI4x bGlnbjogbGVmdDsgdmVy gTbyGEywYVryG768VFOl cDsnPlBhdGllbnQg MEurSUu3O4XqTfprxPE+ QR09JPYlFN53oOPvyMYg w1ztcOd5UpVgMJLrSYW1 aXotBBxqw1JvEYEf C79zbOIvm5Q6PTDkhSog rUUoIkTemUZ2oX9rGHbm mzgfa9wtoxrtPzvvk2mw ht67nJ09A70lQCky ZHRoPSIzMCUiIHZhbGln gm6idQ0cZn1+PGNvbCB3 pNU7hA9iTAKoFsR1HTjo A591OpJepTOdPxxt u7jdn4qbrBm9NiL7XZIb egOleGkhJUD3a4XhTa22 T61hEWkbYTFpBYAfYAKd FQPdtWtbyg6abL5u Ii8+ULXwzVD7lQP5dU2d NnRwUqX7EZcxX681RwLo xOEnOrsmU26rK4KtxUT+ POWtUox6WHCpvAqi LX6wlPZxQNpcMg7kJSA4 OyLkZfNcXVplU2BiCODx vninrhvcsCE2ELDxPIUt gO74Xz3fmQkaPGBd jFNGqK7anfbvb8hwvdlc IdJtUUGiFQe4IAz5BYMu dXthWxEoHUJ1NcS0DGR1 lUJjaH0mbTmcgqox rC2zG7KcEHSdydywAg91 gV5qIxAvVgQ3PIrnRze+ U9VYSnzcPJ4KM2gTJWil SzwvdGQ+PHRkIHN0 aEexYDmqWYDxnF0zJSLy N6f6JnYaZrL3GRgtN5Pr KBZfneeyTu94aE6uPjWy WjW3FMcxO6DiuuZ8 KPKkcXGsQNjsRNG8V03t s1P4PUQzUIQzMUZ6vJU4 uV4ocBwiakpttZJimZsv dmVydGljYWwtYWxp P683HKYilYcsAuRoUnD4 ZgQ2WiC8C4AiWzc8WCNw nZyqQA8rpGOmBMtnOn8c nUtykIrsNR4bJKOx jqbjMMGguK7sZRYqyPLc lTdsTQ6gGMVvnmbgu617 FyBlVVE0XKWjjSWwN1Zo bC1jBlZvANKyRRFk O5NjuSZjWIeyK605EQky YgQ9COHxtsRyQ5FmHONt mRlkJbD3g9E8Pz79LBMM ZWFyczwvdGQ+PHRk MPA1xCygWMruFXTydF2j JKMsD2r3QiNkCwO2VUup K9EjYQDiopniTn52zR9e HjZwYiU8YQarJ2Vn ekT1ILLzyAHpMWocCZG3 S72vk9I8ZXYnTUYwTZO2 zDN3mT8xqJixeyxvoURl dDsgdmVydGljYWwt KEwdU282OSWqzCvrFk9P LLD3U0McCkp9WPMmkBfo RX2zjBBnXOrwGe2nbMcq tWtfVN3cQYDlpcib UEAjpP9gWAShqZNxeTdd ZD5nUQNenmkke099UdEr VKI4SDBlnWZcR1TejB2z BlHqMVQaCATtA8Nc pKGaZQicM605GQxmCrS9 QKNyqiLqL0TkDPYsvUud NoX6j8O0Yi2ZSLbxtJV+ EU80bo04T8FmWppk Ajs1USBlOAD9cYE8pI0h WBMwUDzzl7J0uLN6G7Ww rlRvuv1cg3mhFHEnAXea D12xuAKid1H8KYPl hSO1JIFxfPtvDqToiI65 Oyc+IBJavPpyb7MvTtni t2phd3onqHj3HkLxVKVp vzHfeGgtQLL3r5Yz Qi20Z27aCAhsQEKyCOTw VCBhRYJwpDehzg0viS4i Ii8+ZNCoyIO3gQU8uT7j TxTsDoZ0OTdjP700 FmBnzAQdUhbuh2ftc8zg qTz3HdQuJDZkbnErjPru ZCI2b3PhMq73N9XtbPic d3UeDvz2sn63kQUu z3W7xXW4C4OgTOUzudkb tFMgaOdiPY4sXKEnowpp EOUzzD8jDNWsN9e0KuIv JhW0GWqyZ7KvliF1 BNGwmBLfDLLlrGNHvW7x zhtle6ezyshzIyAmIVGv XXf3CUs9DITgvVozUnNb YJA6DgI8GBT6vSJi zO5odZbrpbbpiX7xVos+ EIp4u3zexQQoXZ0vcZU9 YS81CV17bLAla9Y4cES5 I2FlDVDeobyvcpvr pBK3PFKdDIMjcQ85Ee6g kFlwWx9aPSZmRAG3OYSt aWNhC4YfdZ6yNkHbREJu UIKrR6DhqSCyMIho L233OGxdStP7PLWjqeUj E7TfKWUwbRykRzV0d0Z4 Nm1LLU50SV70HW15cNJv k0C3yIO0G8FhYZSn eybjtvbjjNZ3DXAlWZIe yW94Xb5aaTjaAz1xKATx ZZH8AWHycBKhX3AxqO6q OpZrCUPaLFYcZ9Ji sYYzCPhoV696IZgqXwS0 ORVucyWuO3AhZVYkfImv IqO0i7A6Nq9OUk01DM84 EC69iVTas3A8fWI2 U6MhUBHenjpagugvwRA2 DPPkQNVrbP63Gu4pbDnh Hk3kEGWrFYW3BIPepCPj F2ShxW6sRaKjDJPh RHUdV9FwfVLaLTaiB319 PAztHfR2LFTqibBgI3On FLZjlOmtHlC4d2N8Ew9E YVdhgim7V4GtDuum dHI+TP12MOMvSH32cFUy iBVwb2ahgEi3TuNtSWXl DUW0bRgkVCkvh2HwYKIr C57suZPek4O5CGZo bGx (more content not included)... [facility] Coding Summary HTMLBase 64 SbpbxyvnMMw8qWc+PGhl YWQ+EJ3FNOVpC49xbDNk pS7fZ2XEFGsMQyqrGLXB JXjJErJrpyIsAC6xrZTu ZXJu IC8+SL6hOEHqHwdxrNGq b0G5uJD1Y68uyi1jDHon xFE1YJEgJrQkcrqwa7bf jVb0DYqpDitqQkIv SUChqO50NZO0jC27Jf05 oSAabQLzh2nebVi1AcRs UQCnONK1tNzgAQjtp7Ia CVAnB68qqRAwp6R4 IGNvbGxhcHNlOyBlbXB0 sC2nTAswfluvc6boqadw Ccw8xq04iYGyh0K9bHP8 B6YpryA4ROLsbIEb OjowdWKMbQ9uvqekd8ti wrzdXdQdVFHwIAg5HTv4 KQWcfJkiIqClVJ70KGX4 WUFihmFeW7UfOHLm sSarCuM2h8P1Lu5QO4JK RisuZ1XYVNZLGKovbBA+ ME36us86X1CrLgkmFdu4 EHPpLVH1xYC0yH5r LTHuJEwsa7I5jRS5O3Tg rjPpgx6xj9bsQXOsVWej J77pkKPbt8K1LAGmmVS7 XMXdsKdoWyNdiE87 Oyc+DOGpoZuhh8OmBtjj b8wmv9szlQw4AzlaRMAo xiAaeNqzGOK1n0BzWs1g KTItcSU7tAE5yN2t NdWrUwM0DOsoE513ApHk mUCjRchwP32xN6WryHF+ WZKzKin0MITedYxvWL3n I0YpTQGdjhjfaSRk yUbrYI4oKXJrbaclYNXd tV5cSVLlA9i0GaPnLhS1 EZtnI2YcPHMmldphLm97 bZ2uUyOzBrR2SZck K7NovnI8CSSofDCbXPnt RTJ6H03ae1F4DNNvPJZq XEU7mAQ5dN9paLbfvbjx bGVmdDsgdmVydGlj RBilALbwJ760OOUfbGcz PkNvZGluZyBEYXRlOiAg MDUvMTcvMjAyNDwvdGQ+ WSMzAPO7kVevCVUp fXBeWZvpBx0woAjowPyt PX3bGVSteofnZBLkfR9i KIVdpMRvwFxyGK7pYSBx xzfvy743YdQfZPQ5 KUKonBKsK2SehJ4zIxFf GJBbFFIcF8FrmRFgYDhv V620PZbmVbY4VAFsptTs M1XqIZQjeHgkDeM0 v2Z0Im4Gr7OkfexoJ7Gf aKPkDiIdTanyGFi7C2Cn PjwvdHI+OL51UZGwFW18 GIq7PGS6bBiqSMaf MOVvD7XxkQ5nJuIpZNGg ZGRkOyc+PHRhYmxlIHdp ZHRoPScxMDAlJyBzdHls GN5cFr1eZCUxJFNe iVuqjBChDyChb6vfDEWf AQpwGQ7enAnhG6GfjCY4 NURig9a3Az07J00iW0Qq dXA+PBAxuZP8qGZ6 uD7dXfSkVvF2VVooD700 PpTvgQJvBbxgb7jao2rt jDz6FfF8ETBkdfRvrZwk BRN1m6EqZl71G26q IHdpZHRoPSIxNSUiIHZh gWcmmu7ttT4kTh5+PGNv rFX3hFY9aL1jOkObIsH5 KGkhC267OcIosVYy Nqcjr3gmf3wuvDo3OvOl RZZxmcAdhQzlFYK4f9Xc Dn75I2ZvvIbak1DiLwk0 xc85fIRcm9C6pUD4 B6JbIQKbcwqysPVihStg XR6qXPThfdfxNOKhtY4d PBCgV7o4FrJiLsB3AZoe A5GemyZ8XWSzeIGd GXDgcWQFrK1stajeq2mc suyfKgHsDFKkQAx2QMt6 GVEtoMxyAeWgRBJ2ApS1 UPS5wEKlfM5miZkc qycoxK8xIwg+LQY7tPZb bSHUFH5mExekbZR+PHRk CSW6nWvoIKrqPEYgsR7a VTUmE8n2OpQfAuD0 LEtnO7UgxaN8XRZdpYRl VJRskGIOsG8hwqhku2ir vkvzLbAzKELhRPh5BGy9 LWFsaWduOiBsZWZ0 IuL1SNU3iEZzsQ5byAju mzrttW5bMxp+QmlydGgg SYY3SAs8E3ZxXiw1HGXl aAmxXD7flZGoMQmp Ty2iaBeolNznOR0lUTSj fssbu935FdYgy0joALNz hCByAWfnRYG9T58mu5Z7 XUVgGVBkCWO3uXF7 iQ0foBpcfjtytQCqyUri prRaaHgkXFvyJOnlM279 ROKonJddTvQuDWu3Q8By Wfq1ZYKaaEvrEY9k fWIrKRhsQb5jwRtarYut VW2oAMZohnupr956DtKv l7qlMBFypNIaYTxwAIE1 Q58ii4Y1KSBnEWVn KWV1rYI0bQ7wwWqscosi bGVmdDsgdmVydGljYWwt ZXksD897MCLzaQtiQpJe nKv4U6LgMan8AOXx dSffFF0ukWSoDFdpVe5z kBgkkVlpIZ9jTAQkusoe c065HmDhe3mmDEXrkUDl FTozDVT6D10uj7R4 ECGdQTEgIBT6zAF0iQ6b bGlnbjogbGVmdDsgdmVy rQhfFFcxADadC282EHFw cDsnPlBhdGllbnQg UJdfDWc4L0CoEdzumAQ+ RM38BYEgAK32oCPgsECk u9ycdIj5SiSgHYBfIZE4 yJywXHrxp7VsCPVd W83uyMEdl0T3TPGeiKwu cCVyIlPmzSX2dP9wJIbi rybns3szfopgCycxm5gm yt16vR14R17sOGcs ZHRoPSIzMCUiIHZhbGln wb5fpT8nQz1+PGNvbCB3 lKT1fY9aOVUsCyV3XUia K270OwTwcHRiMwks e6eax3dyxEj9FlG1RLBy jtVkpZrcBEO0c4ImJq98 L24hJEbdVAOqOZEgSOMi HAYovHssdv4bgZ4n Ii8+XJTheWE9lYB3jD9n IvIpUkP5UYgcW932EaOc xISoTgeiP34dQ8UjkSO+ WTHsUbj1JQPinRvw VR0gtMZyLXljWf2gPEJ6 DfQzDfYpHOrtU1QwPLYq pwidorxplHI8CZLwGKAn jP49Rl9njCnnPRIm qDBNvJ6scalpa7dzbiou AvNsPYKhEGs2SMt0HPRf pMfeDwZvIVH4ZqP5RKI0 qHBelH4yqIurlzia rE6rP9OgQFOjgqhqNm39 dG2rPdUbMoE9HIbdWpd+ P5OZGutkWI4IH7oSTMfg SzwvdGQ+PHRkIHN0 cQmhKJvsYMHjzI4tXLKc A6o5VvBxAxU3QYwbH7Oy ASVkwiotDe34uB0kOrHz LgE7KUifV0CuxgD7 VYVgoUUtXWksHNK2H55z m3F0EYJdRGNsTEE0gJP6 hD6quKioeuhexITjyPeh dmVydGljYWwtYWxp V602TCQfiOngSiIuIyP1 WgM8TjB7A4NlPco3SRCd hPckIZ9ffNExSMjdIx9v kNyusTpqMT6zZOXl yqzfEKWcpD9xYXMtfALa lDyiWO8yWTVogliru287 XbEnTAC7BTUqyWDwK8Kw cS9iIxQcKIPnOIDf E6CtbNQwLRzvR805UAwt UlR6GAWnwnVlE7VjQXEl nEfsGmS7a4C9Jl14PSVS ZWFyczwvdGQ+PHRk XKV6qGqqVNcbTIRpnE1q WQElD0r0HrViSkX7YXnc T0JdTYSlxheuXl11vZ2g XqMgKyJ1VUhhS7Tq qcV2DMMykHFoFUsgKJT9 E36bb2O3ZXRjKXTkLVT5 mJV7gD5swAeholjovGNf dDsgdmVydGljYWwt CJkvT156RZKpdLalMv5B DSI6J0NtNvz5TKPdzTtj EX7nnIAuEHhxJt1xePyv iWfoPK5nMILzolah AHXoyR2yVARedRInvPxo WT5mZERoordez293PuEf TXS0FCLexQFaB7XhjZ1c BqSoCNReVITuV1Gh gRSnYOggZ173NZpzCtZ7 NAZklxZcU3VbUQWvnLxn JhS5i6L3Yv2HRVphsIY+ XA06fz77W5TzDbna Uat7YLCeITV0lCK0zB0e BPAnXUfli1S1xAY7X6Qd mwJzua4lw1qzLQByVWuc W73liCIiq0C5OUBd wEF1LTVgnDdqPqRjjS54 Oyc+XABjoKown2XmSsaj r3bfp4qviXo6WmOoINYb xyPsuWdcQXD1x0Sx Um92B56cLAyfGKCaAVFn VSTfERPhtInmzs4dpV3m Ii8+YXRlnTX3aYC5aY8q WnPmFgS5KFmvQ434 FqVdtZHsIplyf5koe5xg hLj7EyUuAOMkidFslQam DYB0g7EaFx87S9BksBnd d1LoMip7wd48qDSa k9O3mDK7X5WwYJSjfbcl eCGqePvgUW2lFRKurzlu ERDvnB8hUCPhW4k0VsWh IrA9MIjkT5YmboK5 TSHxhATtXALppRVZpU4g oibzf2ulihjzAyTwWHBi QGc5JUl7ZGLpcUuvKxIz ZNH7XeO8SPN6eFDe cN7jwIivdfnoxI3kYxp+ TAk7n0nfuIJuAC9lbGW6 ZX19CF39qNQnr6L5wNW0 N5McHOLjpuqdpyxa kKW3UEGxVMVnpL42Fo2v rYteBi2vENAdLCH6BEHs yWUsO0SasF6zBmOwGAPu MXTlN7VmeOWjOHww K522CYwsQuI4RCEgksZm O0YbBPEhwMmoWqQ0i3T8 Oe8TQD63GW48NB02tKHz o7G2wVB2T4ShZDSx gopnpugsnJT9HBEhEQUj nA05Zk2xwVgdUc1iMHFu LKV8NMIhpTXcE4AauK9z DoVpFMPjDKXhK3Qj kCCqDUitV483IWrwZcN5 CLMtlsDrS4GiWQTbsZpx ThW6a5Y7Aa2SNj08AV68 NN90jODre0C7pSR7 D1YnNSWxrizoeblxrFV4 JTIfMWHqeO47Jb5rrNgt Td2jHROyVJT2WIQrjSHx X6UniP3aUeZgXVHu HSUtR3TnjPFuMHgxJ748 LUxuQmH2LNTtniKhO8Zy RZKarVtaXpK7v2S1Lw3H KYtuduh0Z6SdOdek dHI+YS59KWIoFF46nIZw nSCau7wgaOy8HhLbJVOs WAO1rGfkSDpou1QpKKWi M53uxPSyq3K6KLFt bGx (more content not included)... [facility] Coding Summary HTMLBase 64 ElxhiyxqRXu8aZm+PGhl YWQ+MH9RHUQpE52yuYLg vC5nC7ASTUnRYirsJGYI XRrDWgXivnSaUQ8qeTOr ZXJu IC8+DJ2hLEJkEgqjcJVk c7Y6yEW7Q07nkj9tJDys oLM3LJZoRuIfgzmtz4ot vGx2UXodGqghJhYr XDQlgA71ZWA1eW11Rk11 dDTidNUds5glfDy6XyCw PIOfJXG0qGkxVNbon9St BIJxK64rdLVaq9F1 IGNvbGxhcHNlOyBlbXB0 yT9bLLxpshyny2zqjods Wmg9jr15yIVji0G0sJP8 X7YxfkG4DTHrtENt GsuanDXJtE0licaks9hv pbiiSsHqNXRmQOo5RKi4 CKHbyWopEuNwUN14PDJ6 TMPmteTpC0GxYLYn lMpgUmS8a9X8Lm1OX9HA YwvrH1BXYTYDXBbafRB+ UK82ww97H6NdJnfzAci4 FPBgJUK9aTT9sC2r KYWpTDdaq8E9jHH8F8Qg rjLjhs8sl7sdOAKnDDua C74abKDdp4O1JTZydPD4 QJHusXyrTwIhjZ02 Oyc+CVGofElhj8CkWsrf i7vkm4vilSy2DhccBJUr tmTziLanVYR7x0HkJg7o MJWwyFG0dUH4iN9n BdQmZdL2YPwtY935YeYr mHSbZtpbY36aH8TrrDR+ VZUlLjq7UUUcbArtCM9u Z1WrSOAhjxwscOHw wYihRS8pRQIypgogLCMk tP7vWOAjN8m0VlGwChL1 APdwY7VjODIeimwuYt48 hM2qFrFqYxO2YRlh Y4TamoF3OMAjyDCqHJtx EFC4C82ax5Y9OOKtLRAe SFC8zPS4qR3chZilpipf bGVmdDsgdmVydGlj FMtvKSsvZ405WHZvwYmc PkNvZGluZyBEYXRlOiAg MDUvMTcvMjAyNDwvdGQ+ BVUmJNL9qDltIGFa aTRzASlvYg2guFvxeDha OE5uMIWiyzgpXYEgmL6o ELUbhNHfpWssTO1vJFRb tiaod779JnXcKAL0 FYNoxXVsX2OcyE7rYoCa SDOxKXHsM7XiyIOgRQup Y652WRzjGtJ0NANjoqKc Y3RoLMRluYbnWnY0 p0J3Mf3Eb1EqllghL0Tq lTCeZrLaDkrjTBu4D7Lu PjwvdHI+VG49TXWqGB29 RQu1KYA2nTidJObj FJWnH3EmbU9hVrQrUMVo ZGRkOyc+PHRhYmxlIHdp ZHRoPScxMDAlJyBzdHls PR6tIc6vNYPmERZa xLahbAXgQaCge9cuSINl DTvwVQ0uxFupI2WoeLI1 YUPob3e2Nm69T06vH9Gw dXA+UWZkdJP6sOL4 nZ9fFuDmZsS7KEhpA661 PpYciDUyZklng1zig5yb fZg3CcJ2SEPvmmBefBoz TTQ1c8XaKc44W99r IHdpZHRoPSIxNSUiIHZh kDijlt6xmU5nNi5+PGNv zMB1xIH8sC0qYbFzOdE0 QSloC757MwTelPSh Ynpde4bfc7tekKn7OzUa NZVwxlRmkBxuYYY7x5Qg Qc39Q9SnjXqtt1SkFmb3 zg15kQDeo3H0fPB3 V8XbUPTahaerxJVknFha FQ9qXGNndkkqBOTpeZ2f MXJaW8p5NeXyHjU7GWpd F4DlviT5FOMkjQYs HBUrnNWZiU1gkfzek0ca kwanWiUuVQOmWSf3HHw7 QURlwIagNgIeVQS3GxF5 LCB9fXIiuO1ncLnu yhrzlI1lEtk+AXW4qBHc mPHBHQ9xKebvoWD+PHRk SLS8pFtqTOmvMHIbsR5v LJYsN5p5CqWqKwK0 CMktI1NfbeI1ILCbtBYy GQMjuBVTqB1bmolwb3bb rkdlSoLyTXAqDPb7UNf4 LWFsaWduOiBsZWZ0 XwR2MVJ8hBTngB2zhQnq hfrkiU2dDmz+QmlydGgg ERB9GOb5O1NoGbm7ZZEz cYafPG3zuIQdPJqz Nh1ikArkoUcdVG4xWLMb fggjc052UmWje6psHVFd vWAaUCxsXRJ7G10bb7W6 OEBtNVImAHF5uTP9 xJ9zcRyawtezoPYywUcb cmGfuTiuEQmxEJklR388 ZMYygDrkAwJoUFi7N4Md Trt0KYHisMtuQN7h zSJfBNbbSa8hwQawpMhh SQ3vLLQkxdixk629BsPf q5wpEHVazHPxGJymSYF9 U45ax4W4RKLwSHQx BPZ9vSA6cD5mzQmfihcb bGVmdDsgdmVydGljYWwt BIavO898ORDczFslDcZg cQp2W8DtCmc2CFEb hMlsMH1vjTRjDWjoLb8f aZvndXntSV5oGLCftiqc u861NqErc7oeTAPvhWKc VVqoECF5R57aq1O1 SYEuFELrKUP1xSG6qU3j bGlnbjogbGVmdDsgdmVy aGybRIjzGMppO786RRHo cDsnPlBhdGllbnQg NRdaKJf0I4IuEvmlkWG+ WG82FMZgQJ75sFFtaGDt o8ndpGd9JuKtWTKtBLG4 nRkgNBlwx4CmTFMz Y98ajHAfv5E4VLCsfXou tQCuVdFjoVD0mI0xZXgt hhjtg4pkyffwRflvs6tz iq51dE17M13tWRvu ZHRoPSIzMCUiIHZhbGln zt2thP1vJb9+PGNvbCB3 uRP5jQ1oYYUgJtH0QEkt S605GoLosHWaGcye o6pyu1fsfBg0UbI6VJGf oeZlrLhdKPE6q0BzAw19 M49pWZjkMSEkSUIiJHHp HQIwcFkkus0rcA2w Ii8+RICorXM2nPE4fF9f EnDpSrE0KKkfQ558JkNb sPJwJczeD67aD3XkfXU+ NPNkBzy5KNEfvBak ZW6snMEaOYovKu5bVXH8 OsGdKuXyIKbiX1QlTRLh jeoieoxpwDZ8NXMaDJXh vR01Jn0hiPgqKDOu cOTJmT7zqkwqb0dnjuwg DrKyNUQtYEe7WWt4OPWz gHytQrIlPMH1BaQ0JRG4 dOJtqY0trGjyayvq nQ8eC4LvRBPqlmsoOr44 wO4uPtSrExE1OPavElt+ Z8PFUdnsAH7SS8tMWThs SzwvdGQ+PHRkIHN0 xApoZBtyZHBcrP3pPNRx Z1x3WlCeTwK8UOkhR6Ri PSSwpkszVt08iD6hFbBj CsJ0YHadQ8XpnnA6 DQNwfXGmCPstJUD6V06s u8D5JRJeEIKyFZO5qGZ4 hT3haSiahfqzwWTebUrc dmVydGljYWwtYWxp O638ZVDqtNcpMgTzRnV0 LvK9VjX7L1EpXri6WNSn zXauLV3gpCAfBIepRq5q cYoluPglBO1hRTRg hpyxAAWmmL0fMMJerNNi zIizFS6tYRSyxuxme091 SnFrEJV7ZULulJVgC7Nf vR2gLzKnRMWfXIGx P2ZbiCTvMLogR568HSup MlL7WMZxprDjL1XtAPHi zTdmXcV0k0C6Xe33ULLJ ZWFyczwvdGQ+PHRk TQR8yLspPBebAEWmqY2f AUYgA8j3HzYcDzP7HZso C5MoGYOeuazuEo07nT7c KsRgUbD8WXvjS7Bs vuO6AICkzTHvWFscKDX4 M81mo2D4UHUwIOVxVVF9 wNN6cT4fxIzkhrxgrCSm dDsgdmVydGljYWwt LOqkD601CKGlhWrpMa9E WRS1W0LyQak1UNMbuEzo KY8nuKPnVYulYq1soXzr cUajEV1bAHLuafpq WIYkyR0iHVYmgPKxyBvl MS2qCOXbbeogs257MmUw WVV9OQEncDJoP2GzjW2e RhIgTCIqGVEbB5Xo nUIuHIcwZ206EFmlImI5 WLBhpgIuC2KjISTxyLfl OxU4a2P5Vg2SLAtjbGC+ ML45ia08Q9GbWrzh Npr4ESAxVYN7eTC5oL5z WDNvFSlaz1T3wLK0D3Ip kfSqqh6ma4hiFBKmOQkq T99khCDbq7C4ENBw lZY0GCNnhUvpSlCopY75 Oyc+MOOkgKzdb8DyYfyk a4gqk4zdtFy7GcUxILBp koRqtDzcDKT5m9Gt Ln96C62iTMaeOVQqVGDr VWPaIMFljAngdf9tvC0r Ii8+JABhxTL4kCW6gC0i UhWiJjZ9RIskO282 IcDjdLIqLczxh6yfj1nu iAd5VrIvTYBgxuBevFso UGC9s0BiQs66V3MtpRru x9XoDln0sr68zNMj u3H7uXV1W7LiAICpmfvw pEFmrGphVF2lOHBwffpr QBHmqV3zRVGpD5b9XkSu PaN3KHkwE8YczhD5 EGUvkPPqOCBvtIRFvV7h jxrtu0hxvhayEfQdYXVl KFf0SGz5DBYyeTspRpVq SOO0BmX9RBH7uZBf mX1ccElabphsuQ4gWvz+ VXs9g0mklVIqDS2xeUW1 QU06CZ16rYHmu0Y9kQR0 U4NwKDXgevjxmdiu eUF9MVShTHAymQ74Xh5b aNqwGh4wHALlRSW0YGHj oSIkM1NxdI9xXiPwUZFk VEZkL9FxmLGcCRom Z855JTzfBjT9UXUhclGk J0TaZLZwyBpvDlP3w0L4 Iv7FQL07VY47AL76fMBy x4C8vPS7T9KvODTi kuidzqxtjZS5CDRhWCNg oN54Wi5ccFfyPp3pSKVj AGJ4VVCptXXjS3PjdQ3k PhUuQCZrAEScF6Yt dUCyNPboL959FJvkVlR4 RWMklrHkG0PeIBWhtVls GeM6n1J0Zy4SLx17BE48 SP89sPPkl3I9mYW6 J7EvUGUagwywcdpoiJW5 DAPfJKKjcS73Pa4owTui If3oQAQbCXR9UBPwkGDh H5XnxJ5yKwTuDIQz EGOeJ1DpePJdSLebV595 UAmkZdJ5YTFjyeByU5Nj PWLvmEmeZjP5r9A6Cd9E UEnwhgc1A1HyEbca dHI+XI46RWIaGW84cJCd cLFhz5aawWd0CgUvSMAe VWD8mQakXDtwh7HdETKp J60tqEXeh8T8KRLs bGx (more content not included)... [facility] Wound Care Noteon 09-16-2023 Wound Care Note [id number][facility] [id number] [facility] [id number] [facility] [id number] [facility] Wound Care Note [id number]#[address] Coding Summaryon 09-07-2023 Coding Summary HTMLBase 64 NqfwfqxiHBr9cOy+PGhl YWQ+LB6MODWtT17qvQLz vA2jT7XKOWpRSghdWPWW OMgUNrPsncSsAN3bpWVp ZXJu IC8+FH3ePIXgGkmazHMk p9F1qIQ3Y97inj1gJJid xFP1RANqUcRlozcmk5cm wOo5COrjNyqiOyZl LVWsdN21FBZ9vC51Ec89 fNGlaAJun7vizWq5YxGh ZIWaQSU4tFsaYPdtz3Jx TAXwV26asVYzk7H8 IGNvbGxhcHNlOyBlbXB0 kL6qWEuryxlku7acsfne Dxq6tk26pQWiw5O7bYU5 X8IwmdR0EDBchUEf XuqxrHGAaN1lbjvtk9fy lvujFpQoFKHnMVt8SIr9 UAWtsYhbPbKdEJ48KOH8 HOXoaaVbZ8EoXMOp lLkcQqN4u5K8Od6WJ2YM VuxvF7DAEKWITGteeUE+ JE25ad48B3EgFxalJbv1 SYDhRJZ3cAA2gB0r NVAlVRdkn1F1gUJ0C0Az oeWhyn6og2zhYVIaSJeg G03pyTUsa3Y3SJXxiHI2 QFYjbFmvDqQrlE79 Oyc+JDWifJuol4SaGckd h9wxt1nenRs1YlqeRQAo ymCcsKmpJVN8c7DbBg1c UBQziFK6eOS5kL8b OzZvPuS0CLubI295HiTp mXFmBjcoI76pQ1LhyCV+ MQEeVpq0DFFhqFatNB3d U4YmVGJghuizcJOx oDfuMF4eSMDqzfysTLOx mV1xLKXpT7h1QtTbZbF9 TOaeA9IbPIWtgaikUt48 iM9hLzUcUlZ8LNvj X5HcinV5QGFlyGGrDHkk QQY3U34dc0U6UGYmQQMk WUY8iCI8aQ7syKrrqwxy bGVmdDsgdmVydGlj JFbgKRjpW521QTSrlPwk PkNvZGluZyBEYXRlOiAg MDUvMDQvMjAyNDwvdGQ+ FNJqGVW0rXoqRWIu hRYeCMctPk4azDiznOfw CR6yRQWkvdlfFISdyZ2h ZNZdcWKsaNbmIE0oWGAi demhq576RoJhDHT5 UZSgsUKbH2AvyK9hGqFg UTQhMMEwR3CioHAsGYwo G398IJpiUiR4SXQfzxEv C4SpLDMoiSbyFgC0 t3H8Ci5Tf7BqsareP3Fw hQOtIiToUhyhWBq2U6Ot PjwvdHI+FF12JHBwIJ88 NEi8TSW3pCaxKPxb JRDwW9FxwS1wCqKyUCOd ZGRkOyc+PHRhYmxlIHdp ZHRoPScxMDAlJyBzdHls ZQ5cFj0zFQMrEESt vDagaYOwBiRjr6auLCGs RGeeTG8rwCgeF2YbvBF2 EXRhi4y2Op17G37qR3Fg dXA+GOSqsFN7zQU5 bA7pIiTyNvB0HBymR189 LnFvfLXhBagso5bvf5qy yDh1QqN7QEQsomTcbBul PYN0g2NySj06B35z IHdpZHRoPSIxNSUiIHZh kSyukg5qkN2iEg7+PGNv oMR1uVK2sG5pMsAnHhY7 DWsgU179AgIcbIQy Fjkxt4pzh2ovaVp8XzXh DDNghdTjjQatRXU9e7Mb Bs10Y9VfgLwij1KqQip0 fn65tHNhn7Q0gAJ6 J5QgXYExktqqyEDikDhr NM7nWPCfomsiQHLnsY3i CHWdR6n9YjHqQvA8OUhk P7UkkzH3LGZoqGHf VTNhsGIYoT4klthcc9ab qhlaObOmPYQlUFk1CYi2 XRUqnNgmIiEdIBS3IfC4 ZHP7qMPfzC6qeRum ztkphV1mBkv+NZO5dFIl eZJPEI7zQezytOV+PHRk NKY8nOnaROtlRINaqC4q WLMcM2r0NfOnTcF4 URjoG2ZmkcP6PUJeqEVj DFMqyHZLnN8oaddnu7ni rjdaKpCiSIXmZCf0PEb2 LWFsaWduOiBsZWZ0 IqR6WAY9cSOusV5abJwf niuwiM1gNup+QmlydGgg ARR4KMl5K2VsVxl2OMVy aZfwDH3vjACmZZqk Mo5akYzzmHncOZ6cWPBl uqofi932PiTpl3aaBZLl xJCyVCcaXVH2E04cc1Q5 PETdUEAwWAZ0vJI6 cO0acMgnjrvfbLEkxDga mlYbaWunUPlxCPuuR207 HDYcdNdcFoWpCLj7S4Cb Nkn4XTFodWlcZR3r wGXxNKavRi9evPbrrCrp QG1pTQSqtpaub005OkOm g6rsEWUirRUaSGnbZCC0 W88pv4C2OKGpLIPh CVH9cXI0uU0cyRhyrojj bGVmdDsgdmVydGljYWwt RFjrQ681YFOhuOtyNvRu fPx1R7RsGay6YNXz aSbjBM6yfKHqPFcaUz2n aWwxsQshZQ1wOTKcwbfo j628WwNec7ieHVXttUUg GPlbBKZ6V99qt8T7 VMGmEVOaGVA6cOT4tA1j bGlnbjogbGVmdDsgdmVy bLdwCRdqXMhvW342DMUr cDsnPlBhdGllbnQg LDzyDFw1N6QhNmihiGH+ XL40PBXtXN78xUZddZSq f4vtnDf8YlLuYOUaEYP9 rTtjKDfkw9WaMIJa B41cnWLtz8I8HAFvqYyv sLThTsQdzWV7iR6sUYwm qydyh1qbokvuAobyp8yc vv76iN19I96oJNoo ZHRoPSIzMCUiIHZhbGln bn4rfG2kWe7+PGNvbCB3 jAS3zV5kHWAePuJ0CQqt U582YfAdmILyFtuk j0cws5ulzGh1GzQ6ZGIq nuZggYxxRWU1j3JjOs04 V89rOGzfBJWfMLBpJYXk ZCBheBpkuu8pzD3r Ii8+DEKgyOU5oLR8zD8o YeUqPhL0CCblL800OfNs gSZmGtcrY15sS7PjyPW+ HWDcFsg7SGRdcSqs CA6ekRZbDLlnIb7eBEE4 BhAiRlHtYHojN4AxSQGd wwobxblqsRR2WHRxYKDi pI34Bs7qkSydUCAz eFMWcC4jkgybc4xbinpy VrGgLBBuINn3LRh2DHJf kXxkPbVnDIO6EdD8PYU2 fXAebL6drBxenhhw vI8nO5ZcAACvehhpTn80 kJ0aVrGbRgH6HQihNzq+ K3VPQmvfUE3LT2cJRCbs SzwvdGQ+PHRkIHN0 iNbvMJrqLLXgqJ6eVQXd W4w9DgFaRzS1ERyiG8Gb BCQbfeljUd89tZ8pAmBn LxI6KHrdB6FzynI6 PBJfqNCnRJetQVH2E55d k7P5DSVhDPGmDFL7nPX4 eO5nbAgbqejtaKDecUah dmVydGljYWwtYWxp R360HTGuiWhrUsBrFcG4 DwG3RgT5W7XnXvf7IQSj qRnjZB3hbMYpDWblUg2t wWezaVdvKZ1hTEMg bffcOOJxcQ8iGTEeuBWv sHnoQL2cXKFmclbto841 YbIeHTM4OUNsyUIoP9In eY2iZrJbWPTzDYKt U5AukPCaKBsaS785KRcr AoL7PFXfrxZpQ8AwMUHm iHfyPsB7s3W0Sh76SDRM ZWFyczwvdGQ+PHRk EYC5cHftIXwmMJGlpM9b RQKuY0n2LjLoMrJ9GQmf R4TdNCUcyjbrXr35rZ4u QuBhYlH6QVvaJ1Pd yoC9NNOllORoSMirFBS7 Y17wi4D3CJKlJMWuMTP3 yLX8wB0fuVbfgencnKBk dDsgdmVydGljYWwt FRykK381VKOwyRruGp1N WLI9N1HcJek4OQYapCdb LN8rwCYqBGvqLn8woEdk aOllFF6cJNLrcdyx PDUzpF2rOCXmaCHjkPse UX8sXMJkfnrpo211ZpVh OEG0JKPrjJYyW0FuiE4h XoSsEUHwNZJwB3Nk uGGxLYdwJ539XSfrQcP8 PKPmrhLmB4PvFZPtbSjz BbS7f9W8Ko1SGMyixHF+ BG49xa12S8HvBydm Uid8TIOwSBE5yPP6uL4u ULNyLPooo5G1mXO3H3Fl pzKlwd0az5juUVYnTLmr V59cdSVyx1J7LVHs vED7SCEgsZjcDxBzqL79 Oyc+DDQrnChfy0WzNgrf l0jld0zumXt3GrDeVKUi zcMfkIpjXDY9d7Ik Dj90B76hKXixXRFnZRCs LWBiXUAhvQejyy6vdS3j Ii8+AESteZX6sGA0bM2z LxOcPbY4FKvuB101 UfUfjGNfVyrbk3jet7an lTt0SkOaIASxzoImpObe TGN4w8QiUd96L2LaqOkc p9OgDju6ne55lTZx l4I6bCL0L5ElVJRnmpvh yDZvsAdsXX6tMYTniaeh PWVsvC7lFVKuT6f7NzPd ZeW2OMlaL7OadhU5 SDIusUSmZXFriEHQrO3w uwrzo4mtzhdeHdYsTOPh YVl3SGb0PGXnsXobRnMq WXF6MyB8UTH3hPOa zB8ltDzyhjgrkO4gTot+ AXc1j6juwUReKH0mzLW9 FI18YD52hDUun8X6kNG0 W0NuPDNtcmzdqncv vVL4GUOwJANsuB67Lu8e nLwaXl8vDKDwFTJ0YXAq yPRrP9KyzW0dNeXuJATd GSWgV7MiiVMoWZmg T829FRdxHhU2OEXbskUg U0JiNEIatEadPiD2u3C3 Ln5RYT32YE38VZ10eSEv l6R0iEY1S2XuUHYm wvprohwlvWT4RTCdHDQk qB40Hp7pbLlbQe5hSJDi ICW7SDGzsLPhR3LjfV2j EqVkFGXjXUMiM1Mx pSOjUQzfI472SUfvXvR1 HLGiypGkC1HlIMIijVai AcA1o9T7Yo2KPh75HJ36 XZ23yHCve6J6qOH0 M8VhXQZhshxudnvdaDS3 DYUpGGTrtP52Jx5snUvd Mh2qWXHiNVH7MEGqaDFh B5MwhJ0jXiYmESJw UGMcG9NcmSIfCBzvE776 KHnyNgS3NIKfyqAzA4Cq MJUcxMtrVeD0b5K7Jb2I WIldbno3X8KkVzmc dHI+XR41LJPwFS31sNZf dOKnq5hkmKg3YeRyQARj ASR2sLtmTDlnj6FdNBKq S77cvTDqj0L1BHGs bGx (more content not included)... [facility] Coding Summaryon 09-03-2023 Coding Summary HTMLBase 64 MzgpuvznNHf5oQx+PGhl YWQ+TT3CYVOwO23ooNZn lK7oR9TRQOkZIlsxKMJQ SZnKQfYkqvYxTL0itIYz ZXJu IC8+ZK2iMFTzBdiseXVi s7M9zNY4R90hsu6vHYmq yKQ2ZJFwCjEkpmvty7ak mXa6XRtsNwhsGdGz PIBeiD31DCX3aX11Jb45 cUChrAObx8kozUx4VqHj CORzLDT5aFzkDQdjb8Dw UXLpV12hzIJku5I2 IGNvbGxhcHNlOyBlbXB0 oB0yBKothztkg3dixsel Krp5ml70iJIgr6G1mKV8 Q2WunhM2OWUgcWYu OrinqIGFjC0byqejn4nr ofhbCcInVNSxARs9LRd7 PRXdhWdcBwDtWZ55GWE1 CHVplfFbM6HwOSBi yGxwZcV7f0S7Eb9LC3UK ErpzY1QYCRJOXIlynZZ+ FC33cp92Y6ReQzffMuw8 LRKgCZK8xLB7cQ6t GFOpEVtun0U1iKV4O8Ef omFsyy2cq1cgRDIvMLum F03ciHQyy2F4WBTnhUH1 UWInnRhzNrYxuS02 Oyc+DRJceTbok7BzAbrd c3zam0jjaLb8JenrGOOi jwEuxKmbMEZ9w3QePi8e HEVohDL9hIH9wM4w KeTuKbM0DQmbE529DhRn sGGhPouwY32hT9LqtWD+ NRKoLez6XTYadGmbLQ2m R5UqLVWofihknROt vXpwNP2vODTqushlEJNl cJ4qAAWdT2i1EaXzQbR8 INkhE6RlVQEfskqoXp56 qB8vAbLrJlK7GLal Y8RtfcY9BYDnlWXsKBpb EVK0X83yc7R7JHCtTSSx YGD1uRS6oF6rxBjkrysl bGVmdDsgdmVydGlj LDfuMEuzW667TUWezZaz PkNvZGluZyBEYXRlOiAg MDQvMzAvMjAyNDwvdGQ+ EQBqELQ1nSwnQOUc xXKkAHddSt0acEyidNps OW8aCXAuedpmMTMkcO6h FVTmnRDmyLdqYO9lQINj dxdpi339VkQjCIT3 ZPBhpFYeZ3FlaV9dKaGm PMCtUOGhR1TrdVYiIFwt L755QWbxPtG4JMImsoYy X7PxBEDtyTabOsC3 w5N5Td3Rm4GwdjapJ2Li wHKsBnCaWflvAMb8V0Rb PjwvdHI+EW04UGQmDG09 RVp8GCX1gIwjNGiy PDSwX9PabV8hEmSqBKHa ZGRkOyc+PHRhYmxlIHdp ZHRoPScxMDAlJyBzdHls OK7hZj9pWKAbGSNm nKfedGOgLrBqe8mrBESh MHmlFA6vlFxyW9PavAX2 SKEgl3m9Ht39Z71pF8If dXA+IYBmeYQ7iAZ1 cH0sBqCeJtX7DIhsW692 RfZggSViSjova3rft9dh bYj5BxT2FXFfgwWjnExg VZD3j3VjFm78O71w IHdpZHRoPSIxNSUiIHZh rQyhxt4bfM4bVf6+PGNv xQM7iQB3hK6rUsUwEkG1 JGxuS594OuMywLHa Myexb7cgh9ytaWi5SbBa TSTuerAqrJgwEUB8u0Ye Mu75O0WnuFlpb5IySqs5 sg28dNNmf0I6kNQ5 Z4ZnSWCtwuzpmGKazNkj MF8vNZDefmorFPLnkK8a OAIhY7z8HrChGeP7XEcj D6TpdjV7TXUaaQGg CJStnNQDpB8msgdcr1zl ipcnXyKbLKEhQPm0IGi5 JTVenTaiPjFbCSE2GnT3 WYN6eHRuqC1jrWxh apodqY8kTuc+TWQ3dJKy eAJRJO1pOeorgXE+PHRk WZM5jGiiKSlnFDKwqI5a MCXnO9z0PaBaBnA8 PPivK8NthzD3IIHgrQZg WAWuiEUCxS0iayfyk4du pqzbAyQnSUZyXJj9OAc5 LWFsaWduOiBsZWZ0 JqT6EYB5pNNrxQ9ivNom vwsffJ1aIzf+QmlydGgg YPJ6JVg4R1VnBqm5EXNm qIfuGV6ciEYpRNyo Dx4icTahnFllAZ8sEWEw ndkpz743AdXph3wlYKUi sDLvIRhkCJI0G84ys7P4 QURzDIHbSOF7iRZ4 iV8gcJvwzhxcyEJotIfl cjTfaZguFEnuKXxrR586 RIYsqRdcXhFpMSx6O6Hj Lgc0AIXkkKscWR5s jNVmOFeaNr3pjBvlaHaj BT3iXPFaylojg328MdXn i5ytEDWcvEZrBFqxUMS4 V70ah7Q9KYWwLXAn ILQ9qOU7iF4txDjvbtpf bGVmdDsgdmVydGljYWwt DRqiI426FJNhzSllNzYk fZp2X3LnPtr9HQOx gPvzHQ5niQDvGHegLc6w oRwlvYpvTE7bENEsukbr m650NnHcz2slUNNqdXBc UUsqGON0T89vq5C3 JGVhTKIaVTO8dES6yL1l bGlnbjogbGVmdDsgdmVy rEmbICvpTYkoK080NZPa cDsnPlBhdGllbnQg ABtaBDd2P7BlUcpsmCO+ JB57DSGwLW95rEAhuZAd h7iywSm9HdUaOYPnDOX8 cDycPGwfu2MlQGKi V01biFMws6D5LHNcqPgk rNYeYsGsoYA9vL1vBCqw umbkp5mcjhgrQrsjs0hn nv10aA31D96aBGqg ZHRoPSIzMCUiIHZhbGln lh9nfD3aSp0+PGNvbCB3 oIW0oR0pRDWmYnF1FRyt K279BiPruZCxReop f0dou1yamWo1XnB0KGKb ifLavMhaOHI0w2BwCu30 C54wWBajCNMcQLJnUIZh UJRzcXgixv0jbE9v Ii8+SPAlpGV5yIR0bP3e MpJtRqV4RGxoO183CyMk xJKhUskuK30cT3ForPZ+ TIVxFnp0DJCdkTaw IH5zhCMiJSbhDf7wREG7 EqAnWnWlCTsmE7QuDAPv obaesffywYF4UGDnGRNc eE15Jc7xxKplLFDp lMXZpK7vrqosq3pyjcbz MbPcBGBsKTu8VOk5MXQo nCslZjJmRWR3UrG9IOG6 kRAijB1hnUjmyinv aT4pH2XwMNCabqutAf06 kJ7lSdJtAtE8OWqyOby+ W8EPRfucWN2KI0fPSFml SzwvdGQ+PHRkIHN0 fMziHJgaSTGqxR0nBWBx T8n0AkYtSuZ7DTyxG7Qf OHGmegglKl66tF6jSuEu GnH7TJieS7HnqlE4 BEIylPPqUPzmDLG7A24b v1P6ZCCkCBXhEQT7nNC6 bH0zgXowquswqQTvbDmh dmVydGljYWwtYWxp Z044TUWagKyfCkKfWqB8 YqL1LsK5X7LqKrm7PEKz kEkkMM1aiPUeUZdtBi4g rPbgpSbqUY7yIXPm frmyZCZnuV5fRKWiwLIl iXvaGN0kCKRiybkvq766 NsNqUHU5EVNghWYtE7Qr nO7bXyGbKBIjOQSa H0WfmCQrMHetW168DXdg AxA6SYIxzaRtO5VaGJFv nEcnRtF4a4M9Xj77QJDT ZWFyczwvdGQ+PHRk JBM3mLswQAttPMFyeG4m QTOzM6h0FfZxNwY1BYyh W4BkNJBfseygVl48hV8n OfDkMaW4PTthZ2Bm tsW4XLTznQTcLRocBEA3 H35kt4H4ZVXhYMZiHEM6 wKV6iM5poTnmkxagbLIv dDsgdmVydGljYWwt ZEwrG111DLIkfChaKo2V ZTY3U2DjXov5KKBqaRxx FS6yqBDhCXplLb2jbBdm jRzvAZ9zBHRwnzxq CWGloB4eVMPeiBNsiNat FP2hUGWxugton240DgUj PYT7NCQopBDpX4MzrB2w FyGbIKBjGADbJ7Fr mLJxNSijI574QDtiMoY2 VCPzchAlN0OoYDTocSjs KcI6g7C4Ek9HUPosmHH+ QK40ad76Q7LfZcxh Mnw2UPEkZCU9eLX0lY3a NAIcXFmwh8O6eES2U5Vl jbWytg9ck3axPFNlUHow Z21xxKEtt4A2FUTz cYO3QVHisVaeZsHmdP68 Oyc+NNKhxOvxc4WwQyvn g7pct7csqVi5KdLcEDHq lqDepEfvYON2s8Bo Mw95T13eEFgcOZRvRVUc HFSbKYIpmNrnuy6seU3t Ii8+AIWqhGN5cJU9kU1c HfDzRdP5WAzgT340 SwBgeUFpTqaoh0zpx0hw xWd4SfRhCXOaglKnnBos MIK8h8McSm94R2QqqKia v8QzDlx7oa56oNAf j9I7gFS8K8BhTHOcpbov eOZlqKmjZY0lCPOwwlwc DFZbuF2xHHPhV1a7XvWv LyE8QNgqF5QkezM7 GIPvxYXlVFMagXXGtZ2o vjbda5dzimypNiVmSKFt BTu5TPr9BJEefYfxNvEf QPL5NoS7SNA8hLKr mW0jvNdssscpoV8sExa+ UCu5o0pryNDbFY7doHU6 XY38BP89aWQoc4X9kLJ6 M7RpUTOxvtbrwkfb gIE7YWPcCUQwkK10Gp2d hXopEl1pNEQrVBF7RCIi fYEcR6WslS0sUjSqPBPg VLFgF1AzyAXaEGuo O479WUcyLqU2KGRsqrDn D0MeNZKfgMujXoB8g7S5 Vg8TAK39SL58MG52mAVy k9W9qEB2C0IuNDVl wadjtcsylRY8FMBsIGNr dP83Ng7gtZwcSq8zYHCh PYN0KBBwjNQpQ7AnoT5s IjEyGWYsTKPgL1Wf kHSaCDyyV440JZdeSuW6 EZDsmzLaU6CsHDAeoCjz SoN6d0M3Zm5YJj16HD01 CK13vSKhu4B2hCI0 D3ZqAQPeknpdmlnqkIM9 IMZiWNTxwE13Qr3skUkj Ug1zYXEgJXJ2KKNosIBo Y7XfbV3lVgIwTTLx JGWhA7UrdKPkLAsmE267 SXmeEoW4YZTsbkBbN3Wk FKRukOiaKjF1i3Q3Th7X HEmefca3I0UxQxmu dHI+RM04JFExBO52aXVd mONza8oixJj0TeJqNXAq TKE6fBkiJXykh9OaIWBs A77hxZOrv6E1MINl bGx (more content not included)... [facility]on 09-02-2023 Wound Care Note [id number]#1. 00OTGTIFF [facility] Coding Summaryon 08-30-2023 Coding Summary HTMLBase 64 PtxoaynjYMu5gIv+PGhl YWQ+TM2ILYXzG52yhIXw sN4nP2FLNXfDQcarQRPT UVvMJxRcywKaRJ5rfNFf ZXJu IC8+JX9pSFErBotpnRTr a7A4mTU5U10cjg0mOBvm mIG4JUAfGaNunhmwn4ip xXo3SVywPfidXzCr REXtaC29BXM2rU99Tu27 nRYbdCHex2nojTn4TbGa WIKqZNV2kFppVNlsb7Ay NGRdG73krQDef1S9 IGNvbGxhcHNlOyBlbXB0 dJ5gXMnjxskeq6mvqkae Alt3bh86xZPhn6R7gKU1 W3PjcfZ5UHOyhJRn LaigkCHEhE1csrutm5hz tmheZrGdKDFpQNn3THm6 UCAehEyoGhQwXK78LSZ8 YEDbgeScD4HrZMDg rOpnIcD5s4B7Mf1VS2XF VkuhM4ITWKKCVCniyPL+ UK55ag42T8IgOrflIwu3 ARExTLL3cYO8lA3f RQMkMNbql4Z5zHQ7K5Wj snMihl3ch9sgBUPuAKha B44rrRAtn9D2KKYsrQT1 PGKjiIcfKnCztF68 Oyc+IRTtqFjbe9CnOkdc p6rrl3qdtFk8YaeoVFOa toVlpQtxHFB4a6ZjNp9m JVElaIX5fZY3aH9q FdArFwL7DKsgZ149ZiWc yILvUdhsS69aN8NyaYN+ ETSmZnv7SOOdgEmrKQ6s N1FjAFYiuxktmYTj vRhwHY2lGCQtiminNDWz uJ8cYYObV8v0EjRxJfX0 RPusN2XyEYEubhaaBl73 wT8nLoHeVgN6SLbv P4QptqH8JQWqsOXgAVkv NZX0W96dt3Z7TACvTYTq JNS7hDZ1mI0qmHjzuwic bGVmdDsgdmVydGlj FAswDMtrM153FFJnjTck PkNvZGluZyBEYXRlOiAg MDQvMjYvMjAyNDwvdGQ+ UFLwTGJ0eHgpGMWw dZKyWEklQy8nlCyyhDam CI9tBJVfzbdmTYOkwD8y LGGjyDXzcCjmSX3yHDJx sdpei373ZnGrKHU5 BOJzaJMmQ5MjdW6qVnUk AZCyVOKaL4CucRKvUHoo Z600RCajVxV5HVAtbrGe X6MuGVGzmDxqXuQ6 y2U7Rv8Kr6EtawtkW3Dc oBIrMmCfJidiAOp6E6Ah PjwvdHI+CS16YEUtIF86 KIk2XCT6hQofBMdf UKZnB9RqhY1dBeUbEKMb ZGRkOyc+PHRhYmxlIHdp ZHRoPScxMDAlJyBzdHls OY1lOj2dDGBpYEXa oXxoxEUfSkStf1ibDKJw BCeeEL5keBotK3LihXA3 KRRqs2l8Pr40G15zG8Vq dXA+HPZqkTP0eBA3 dC0rNcWnGmP1DLlvD433 WsPulNAtEoeii9mtj3xf dNs9UqN8NULqquNjxGfa ZXP5i2QyCz05B74j IHdpZHRoPSIxNSUiIHZh uSppld5wmR3qIr8+PGNv hOA0eOF2eM7mXcAeQxC2 QUazS375YkYcsEJo Phxqb4xdy9wngPk9EpVb ABQcwyDscDpwEWC1g1Da Do20C8QiaIpfc5ZzGso5 px87zUQfx3L8tAL3 R7YvQGMpukznbQYyeOyt OQ7oVISabndgKTZabC2c TQOfV1b2MlTiEoI0HNng I5GxxcE2QACxeDSt QXVshIVVtY2eguzxc1ug jyefMiJlTXBhKRg0OVp4 UJAadBaoQxOrVQU9NpU3 VCH9mWNbrB8itBvx iciebS0cDwz+THU8aPXg nYLNYQ4rLejmaKF+PHRk WOM4xEfcOHltSEXdeF8o MYIcW7y4IzIgEsS2 OZvnV8CzupU1JPZlsVCj WSBunKXYgR9igjwet5an zbrjPdBcBHHqYBx0LEy4 LWFsaWduOiBsZWZ0 MzD0XOJ1aPSqtC3adOko eekglB5kPod+QmlydGgg BEP2YAl7N8YxFjc7NNLf dXduPC3azGSgFQsf Qa3haWezlRwdHZ0cHPLa tcgkv033AhVku2vcFUVf lWQpQXqpOBU8X87kz2U4 OASpPGIwTQM3sIU6 aJ9ezRucpsvpvTWqbNaj ffLsmTndJZxjGUcyN118 LRZpnUbeYcIrWHx6S1Iq Bwu9JKAvwHmwVY4l xITkYEofOb4ecSyvwJzk DM9eHFWaecndu425QkEw e3wtBNGraJKcSKjzYZV6 G83bw7R9HTRiPWIq VPE3hIG3tT5nnNpsvdue bGVmdDsgdmVydGljYWwt PTjdQ219LKUhzXwrJqQj vGs9J3ZyEqt1NDPb hNwtCK7eqWSkDLprCs0h bTotaUtcTL7jEKMtogso c102CnOns0ymLVUkyNEq IGicUJC1P40uj7N5 UGGtPXQdFNZ5tGY4wS4s bGlnbjogbGVmdDsgdmVy rLiyRYusHMofQ205RNSr cDsnPlBhdGllbnQg OQxfMUr2E8KpJncsnCT+ XI39YLEsRC89aFIwxAYp h6ykfNx7GgFjYTXfTMY4 dBmaQXqpo3TuBUIz D83pfZHso6C9PLSuwNgy fNZfKuAylBN3iG5yVKze vlnsq5yxuypoFjhls3rb fl80tT73Z55dFKfv ZHRoPSIzMCUiIHZhbGln ay7ssS4mHj1+PGNvbCB3 iZM3nS6bDVAwDxU9NCkb Y390ZcWemBMgGnan d0kwu4oqpOr4TnH7LPIe hrEqqRwdOQR9l9YwMk71 A38kWWgdYJRfYQQtXJRe WVZpjCmjgw7dmX2q Ii8+TZCyxXS8mGL3gZ5i GyZxRjJ2PGpsH952UhJq uYLbVlhtY20rJ6RscZA+ CYEgFlt6CRWhqEba SV9lyVDyRGkgDs5uEQV0 HkTlTwYqADquL5VtYCIq fsugmjgkvPG5LGOnKYFh yZ21Jf9xyCzsPTSm fUGLcT2yscusz6flysyf PoSrUTOnLRi6JQn4CCUv pCogUpNtJOU4IkV8UEO4 vAWcgR4rjPptjads dH7fV5YvNUNvacwyVd39 kF0hEyFwVkZ2BIfcWzy+ Y2AVHbtaDW9TQ1hXXOqq SzwvdGQ+PHRkIHN0 eXtgBBdgMIBmpB6hUHRm O4x8FqElGyS5JUcmG8Rk GNHlgztrOa61lS0qWiGh PxV4HQcjE7QfxzW9 ORYvnPJmUFraZQY8M08i w6A0BZYeGQZmDCF7yWW0 kC7nvSrhbddzfUMlfOxz dmVydGljYWwtYWxp Q416QRTkrMjzNcLtFoX3 UwJ5HaZ1E7CdPvz0VOBw vOfcLD0ypNIjDUlqSm3a bVhkbFkzPH8jOUGr dvenUZKafT5jSSQtnRPr fXqvWI0gDZLcxzwcg739 BeFeWPO9PNEffNIjT2Fr pJ2bGeNlQGQaTRAv C8RnuNMpCMgzO004FIpl CqF4KRUarpCzX8NmTGWg lJebXnM7w8B1Yi41GUHY ZWFyczwvdGQ+PHRk IHQ8eUurZKwlWDQlcG6t EKKcO7d9MxJrNlU8GXsj Y2AgIYKzcyrjRp34cI0u TlVvQkQ5UQlkD3Tk amP8TWAzdCLiFUvtGCY2 S74rb6P1HEExHTBwLXL3 kKU4nP0vtXwneldavEQz dDsgdmVydGljYWwt HVcbS197ZFSjoIjjRr0U YUG3A6WpUlw7XKZiqQdg RY5gzBSqSSgmPu9yhCvi sWhjED3vMIUhutbb VRXagQ4yIWGqlNXsmLyl UG0dKYNhwfyzd676OtFh KIJ2CKTfmMDbQ9IgfA1a RrHzFNByBFFuQ9Rv aVBlNZorQ369JCqwMjR6 PSQfsdKbS5AyQBXsyEaf GkV2r2P4Or2EGCwiiSM+ RC85mi16P7FyUfxa Kru5USUxJZP2gWT0tG2m XRZdFKuge5R2pYR9C8Ns sdXigj2rc2whQJKxTOmr O55dtAHls7L4FIZd eHH5EAQmzZlaViKaaD91 Oyc+IJYceRqcl5BvYcys j7nnl2fhgXh9XaXqZLWe ymJudTgvHAA2z4Hj Rb14S85cWGbaVOZwMMRj QVUhUQPzfQxbzi2uhJ3t Ii8+CBIxaCX4uOD5tB4v DfHuExE6RMliR151 FzSuqJYvIuhkj8sik7xh pCh0IcXsQFBakqFenSyr CSK5x3DiHt03E0SwiPqj q9MbDrf1dd01pLZv u5O2lUP0Q6UdNEYyolda dAEjpXzsCF0jJIJbvsad IEOxwX1aQJAsI4g6ZgUv KtI0ECjgN7RsneL8 WCMjvYXaIGGbrEQGmI8z vfpcx2nhcovqNePaPYPq MWs7XYh1SFWjdDtvGqEo LBM8GtG8BFV8dYRl oN4uvWymgwrzlV9dKiu+ CFm8t8ckpHVuDC1bfFK6 LL82FK68mNZze0Z8oVO3 X6IvMLBwecyidwdl hMV9MHMgDMJnaK28Cc5a yFvoXw6tGZZdXJS1BKQn tPYhI9OqfF9xQtMhLXEh MQBjQ0TglOBaSXwi Y608GKynJvS3XWGxrxVc A3FmAPMofCmqHiE4v3I2 Lo7VSD08PS98GL69dYNd n0V7yFU3E7AvQPTx pbqbswbwpXK4PGWbPCMz zE33Jk3slSvcPt6zPJHx LWE6QSQnpMJpV0FnyX2n WiDoQATrJJHeB0Hw hKPoUAfkB131CXqwEeH1 KWMoahLoT1NuYZJntZoe MtB4m8T7Xq3YNn41DJ49 PR04gTFbl0U2qSN0 C0WvHCPswudqodkypZD5 GIYtPHGqmE40Wc9ktQfu Ho4bHYSiHIN8UQPlhEOa K5AlsA4nKfSfOOTa YDFvN1ZylHNvEGspX422 NIweSzG3VAWfjhOpX0Yw UZWnjKdxWvE2x5X4Hl7C NPfikqn6S2OzItik dHI+ZK99FHGjLD73pFAt cNGcc5pdjDd5PsBaECJf ZYT6yYtuCQlsy1JmMXVq Q81xsJXmj2U6MOSy bGx (more content not included)... [facility] Coding Summary HTMLBase 64 VmfzbieuHDb6uVx+PGhl YWQ+IJ0EXHJuS44kmDLf zZ8dJ6HEJHrBVtohPNVQ UHkPHiFygxDkFY7apEOz ZXJu IC8+DB2uQUXiWpvfkJYx l9O0mSX7Y01dzh2wSQhw pPC6SOEaFbLguaqdj6qa zCh7ODdzZpdjVvNk AWWwpJ86HOS4iD76Ny08 wGZehJPot1hrnOp1YnIa UCIqAPI8yYcvAJije8Mi SFSoX27weWHus5H0 IGNvbGxhcHNlOyBlbXB0 yI9hATkarubrb9eyipqq Cgl5xe92dJZce4K0mDD7 K6HzcdK0OQBmoWWu UzshzFPXdY7taxegl3uh wwfuUoSgZNTwYYx0HLb8 QFDunIcuUgDgXM76GET7 EAXcovKbL6MgHNXe uOwlRkP8p3L6Fn4FQ0UN ZhiqD5AYHXEKFKsltNP+ FT00mx59H0RqNvmwJjf4 NHDlTPA4yJE7jO7t XIMrRDqco9L6mZS2J6Rl dnNswu8cx4itAPHgDRkm J02pjPLqs0L7LTPwtSA1 ZQVenWcdWaKbnS31 Oyc+SUMzlVnru6YaFrac q1alu0fvhOd8ParcTZFe xzTjgFefHQE0q1AvCm0j PKMcqFM1kZP2jQ9f LpTwYzG2KZyzU226AyZg gSYtUcxsT85vT6QodOL+ ZQHdPoi3ATGpeFygZF4p C4ZjYWMawfmeqQKn eUafMF5mJVIgsrkfZGOc dI5hHHZqP6u5GxAyAmA5 PGfqE2YnEGKwiotpXc53 oJ3pUlHrTzG3HSoo I4GwzjI9MVTweZKbWUmg BLA3Y58jb6D9CDWaZFEi HVV7oLY4jW1apCzdeniz bGVmdDsgdmVydGlj BJeeTYdvJ889YMVlgDbm PkNvZGluZyBEYXRlOiAg MDQvMjYvMjAyNDwvdGQ+ KCIoFQZ0cLjvGZPr zHXaWKucTk2nwBbgxIat XU9zFMMymxrtLHZoyI5b ZPIqfJTlhKxsVI6rDIHo dzhva992JmJbKAV5 OHFsoQUyT9CgwH2wJgPl TLIaCFHnL3DjsHUiBJoy B358NEutYmC2UICvlzGq U0KgXCKsmYfrSkN1 p4Q2Jh1If2LsxcjcK2Tp rSZpDpXnAdebXPe4W4Vs PjwvdHI+UO07PYClAP52 SMo4VQU9rGokQTxf MPIdL6DtvE2nCeIoBIUr ZGRkOyc+PHRhYmxlIHdp ZHRoPScxMDAlJyBzdHls XA4xUg2dSMJlSEUk eBorsCWkDyYjy0idHBEk CTtmIS4ohCymR4KmgVC4 NLFbx3e1Vd37P17bD6Lb dXA+LDLbuUI5mOM1 bP8uIwQdQlQ1FZjxJ992 DdPwiJBoGrrfq2bbx7lz tTq2TjT4RSIdkpIicHpy OBJ6l9FhZy38R81t IHdpZHRoPSIxNSUiIHZh dKapmb8drG8vNn2+PGNv pFI2aAY5dQ3sLfSfXqP5 ZWwmI693GzVxdPEo Rdbhw3tfx5djbRk1WbFb IYDnnrPftEkkPNB8l1Sh Dj21Q9LljIlly0LvPtm0 ip11ySDzk0C9kEW2 J9PaZGInhwaxjYUgbRke VS2sATMtmaiqVGOciB0t NGDsN8o8TjErKsE7CHql V3DnjfM8HDEkyLBa FIRazZMEdR1gqbftg6yy ihmoDyQzVRUbLCi9HHm5 CTGxqTqcXxZcBPO0XhH3 GBE4rSVsaX3qsYbr ppdtgR0bBjl+JDJ8lKQd zZZCNB8dKnbsaED+PHRk LLN3pAosDLnzEHPdqG7p NFDvS3q5OtDxTzE6 VOkuJ6FabxD2CJMddKOh XWUueKKXyD3zwpsaa8jy xroqEgRiFVGsXNa2RZy8 LWFsaWduOiBsZWZ0 WyY7QQQ8wYKqtC5zyTtd xrgsuL7dKcm+QmlydGgg FBW0FJv4Y6MxYwr9GUTi nTajNV3txWTpCDsn Lx2lhXaneVgbSE3vHPAm wspde010WeBix9gmKTPr aIZvYKeyMRC6G16sx9X3 AETfRHQkJWU9yEV7 dE7tqZrkamearZAnxKhv niKykBhnQNsfRLqkH422 FZLstIvrOdBhMHb3S8Lm Glr7QVGhyZoaIA1r lFHnRQbjNc9wfGuhwChj XH0vIWYevautv241FoRu x6zhBAMrlVHsSIitKWH9 A30lv0D1QGQpZODy KFO0tUP0nW2vtGhmxkne bGVmdDsgdmVydGljYWwt ZFaaS893ZWEjyXicYcSb xCx2B9VpXvj5MYVg fVyiHX1epQFyRIccRm0s zZttcAfaMA0dCOOfvllk b823FfSia9avXWRzqYHe AThrQOC4S47wv2Y1 DFOaSVBzRGG0dRK9tN7j bGlnbjogbGVmdDsgdmVy gJhsXTtpFBmlT002OFFp cDsnPlBhdGllbnQg PPixJBt1Y9CdKltkbIJ+ QW06BEXzFV43vAAfmIVl y3gufBv6SuMlEYHbTQR7 dQncSBklb0HrRUMu S10prGWel8P1DIKbiNgw mWMxAyIhgJI9hZ3cERdj ihsob5mvhiwzKmxfp8uh aj02aF24M72lRRen ZHRoPSIzMCUiIHZhbGln yf3qfA6kCu5+PGNvbCB3 jKC6fW5bCPLiYxF3FPzj Z865TzZalVMvGghj w9qmd2zybRz6RgZ7MXQg eqSylDxvGSC1x9NrUw50 E89fFZioQOLhDPRpPTVu HUYhyOflnz8odB8c Ii8+ZMVtxTB1wOP6wT5d RrNrDaO3EXraJ544WhXu tWZwPjipU58cG8EqqQQ+ STWyMzz3KHJwcGls RY2bgTJsRMyoEc5oXSG9 NhDmOvHsWUdxP8LaFBPj amkkodupoHE8WPGaSCZb dP67Vz1qdFrbUJUd bURMtA5dpbxla1kwypaq JfKeDZNlHJw1JBn6OIEv rDlbMfYdHPT7MzI6XLV5 qTAbmG0mnFzwyorc dH7zM0AiYSQntgasAr84 lF0cDnDvHiF9BBjbXsj+ K4WCTdiwID9JC6cXMKlw SzwvdGQ+PHRkIHN0 eFubSLtnCDAscA0eXSCy Q7k1CyHcIdH2DJvwA4Oa PJYfkuqnQf79cM9bFaUz JpX2IPkdJ0NtqsR1 GIXcgKLoBXiaPRA0S88q q3M4VEIvRXGcHFR8uLH7 hX8voUrifrwyeAAwgVyi dmVydGljYWwtYWxp Y844JIUghCgiDvQwHhV2 LbU9IvA8P7ZaNji9NREd wBvoUU9txSKwTYswXi1d rJraxCatCD1qQXOo nzseVJQhhZ3yKTEllRWf vHsaGF3yKBCnysnka295 YnQzCKN5FJKigTPhC9Hx uS0lZgObMTAuYODa H6IemAQeORrnC861FGux DzZ6ZAUdcrCyE8ZoMPHo lTylHeG1e6M2Hq51CEFR ZWFyczwvdGQ+PHRk NUZ3cGtlQPrbYTLowU8l QZWnR5i4HuYjKmR4HOon G2XhMYGklvxdVb85fG0w HaApMvU0NFagZ2Bd riF6SILmvBRpNGpgLPT3 Q06jm3B7ZLHiGGJdLEU0 tBC0fX4tpEopsssrkBOb dDsgdmVydGljYWwt YSldE779YKUinShlCq8W HYD2O3IgNpn7DADpkObl JI1tvOZeNIdqMo1rwDju yJhfLJ3kZRFyfsfc CUBjyI4kLDLhqKBmjWza YC0fHXPadlxhx029QjBd KID9AGNooNGyH2BqtK6t FuVvXAPtPRNfT4Wk aMMiYKvyU244KYupVnB1 OTYlpnPzO5WlVYEjmHjd VpO3n7U7Ls2GRNnimOM+ HQ15ya04I7YsZkkn Jqr2ZWBgRFS9aDM4kI0b VISkOZsvw7A5sYI7S7Cr zkZvow9ef0krQZVbFXnk R28igLDoy0K2MSVf yJM1OHSlaPckFmMprC29 Oyc+LWUewEfmz9SdHikc n0oeo9yhqJw6CpTiWNZx tbAqzHfhVGQ9m1Xw Ta52P43bSSbbMAQyHJPc NSSxNRLndSeokn4hrW0g Ii8+CHNyaTX8qAI4hG9h MbWaMdN2CRjnV196 OpZleEPkKjuyp2kqq1gg bVs0NpYvTPKzawCysDbr NJU6j5CiSj02Z2PsbXzs e8HgScv2cp61oUUt e5A5eXZ5V2JsAJZobgca tJFeiEyrFM9lRZZggylb GUOhsJ1bQEZiE9q2WjKe GcC1SSitS2LwjxA7 SBObaXAvQKDrxIHPfD1b bbddo1uxuhtkJnChBOKp QNn6FKp5CIXsoTvzUgLi RVB9CeY3FBT0rATf tR4cfMedxodyxM5tTea+ PIl3j2fmbHZjJK8qtZA0 UW12SV15zVDko6F3pXY5 Q2XxRCOriskzkegk eJT6JPHzFLSkrN45Ec2m xCikGc1pMZNlZSK7VMAv xIVjY3MixI0tTcXaRXCx YTSeC5OrgYPxFEmv X238VYidRdG3QNCqrmVr H7QfFBRatLstMkZ3h1I0 Jt3NIL66YG02MY00iRIe l4N1mTG5T5RjAJUo suatrfqhvZF7PSEoBSQx cL51Av3brXjtEj4oNCBg LIN2VAHthCKxL2RxxD9m VnJwZSTuDRCyN4Qp mQXhSUztL101YRhlUnO3 ZBKqybRzW9GoGRJxyBnc DcJ3i4S7Pb9JRg86XS27 PJ96tBNzk8F0cWT8 A4CqFHIgnjmzclvqsHI4 WQLzGIJabV28Pv9xrSbm Rc4uYKPyFJH1UEYixUHy O6TaxK8aRbWgHIVo RBWkX1LfcISpHGzzJ454 SAsoIhT5CBLvbbFvD1Gu NWCcvHbcSyJ2f8C8Cv3K YDynacf8W2WwSfud dHI+WR00VMKjJG06xSMg dPFve2uyrDn9RtQkESPi OQK2aYjaXAevq5YqXDHy P40qjDYwa5S1CNIr bGx (more content not included)... [facility] Wound Care Noteon 08-26-2023 Wound Care Note [id number]#1. 00OTGTIFF [facility] Coding Summaryon 08-23-2023 Coding Summary HTMLBase 64 OuzrfeuyIXg0eJs+PGhl YWQ+BU4GNXPmF17ydMIa sG3bB1IJJKbWDdweJIAD FLyNEtVdxoDcOS4sdYMm ZXJu IC8+UH5gGSEeUzcgnSBa w5X2tIU5S88myx9kXNny sVD3IVQlIiZmnfsmi5ot qKb8AKamEnqyVuZt YHBjwL79WDD2pQ40Io62 zPAuvQYeq2rhzVl7SgOu WUWwRQQ3gDeoJDbrn8Ax SRUuH83xlJIdl0Y1 IGNvbGxhcHNlOyBlbXB0 vU9jBPxyejicx4xiryow Btf6gp54qMKqc0Q1bYZ2 F0NquuY0SEVtxZWy GwwirRNAdK8pucxyq4tc jznvUcRlFMPwETj3ASu2 GAMsyVswUiLiJI42WHA7 NQQeefKvR9EoKMPc tDitWhD2u7A9Uu1WA6ST EsoaM7GGOKZTXQcudBO+ VD46iq51M6VxHddsIlk2 CFZrYEL7lDS6fO9g WISgQVmzg6Q0kVW2K5Tr vxNkoh7ug7bfEJMzMZca M81hbBOit1B0IADomGE5 PBNtoEmeYpUrhI34 Oyc+FQQclBbwc9QePumz h8vsz3qvkAr2CihvSSZt uxTwjZyiQQP7e0HoXr0a UPJuxUN1jSZ9hW9x YuDiEpI6GQkpI374RsKv oJExGwkvR75oE0KtsNH+ XVZgSns8VPEnmHrpRW4x K8MbJYXyendejHTn mHwtGG7dNRUoikzyKLIo dU2nJUDyL6j3LdWcBpH2 OVbpY0CkRRAafyzfSo77 rI3qFrUuVoQ7QHxm D9TxpwL4UJNnvEPwTWjz LRZ3I42tf2W9UQQwXZJq SZD3sRZ1rI5xhEpoennj bGVmdDsgdmVydGlj EOkvSLkvP807FIDaxEuo PkNvZGluZyBEYXRlOiAg MDQvMTkvMjAyNDwvdGQ+ PXNmDWX1uLzeHPNh aQDvRQvyJs0exNdynEwz FF8pCEXtaxyiZPBysK7w HMXhvHFlyOurMS2oVAKh wkdmc933EwAzGZA7 BIIvoHQnL4XpeK3xAyZp MJCkIIYkH3BszNPzFXnm D674QMneZcW8MCArjeGk J0ZhNFUnbUyhKoO2 f7E5Zj9Km5QzuozpX9Do tEJcOwHoKjfqYRl3T5Ik PjwvdHI+KQ26ZXFtLC68 FPz5IYQ5oXbwVSfh KLEuE4NgtL1xSdTkQKBo ZGRkOyc+PHRhYmxlIHdp ZHRoPScxMDAlJyBzdHls RK2cZu5cAZHmTDKz eLvngZRtJrTda1txMYAz FOorKT6huExeM2IvbKB8 WBYqo7k4Bu89P39wU0Sd dXA+UZAfxXN9oIU6 lR3uZgJcRrD9RWazR265 LoMxaJLwVqnrv5yui1vw dSi1XnF8LTIjfiLxkNtk WWL4y6PjFy16H68y IHdpZHRoPSIxNSUiIHZh vItcgp7xpC1aNa9+PGNv qYD3mZN4gK0fTnCmJfK8 GBjoS069DmUvhZZe Ipidf7fhu9kodLp8LcHl FLLuevBkuEygBDT8k9Hq Vp49G1HwzZyae9UoMmv5 it25pQAwm6S4tCA8 Y4KhWWEthapodDGgmIfy IK4yMJBlwjhbKHJzpL8j FMUfM2k9TyJxCdJ0PYpo Y2BwwlA1WUEmvUFw ONZmnIPLxU4zdycaz0jm ciltVpEtDSYoFRq5YIh8 MRZfxDqxLvUyPTS6WiP4 CEL2tSOkoE5atLfr pwbjbA9uWqh+BVO5kXBx oWSPYR6fHndomQS+PHRk AYW8aTzbWZzpCQLglW4k UILpT2l2UvLcDdZ6 CZzcW7LrcwO8KLHhwYHb LUIaaUCKzR7qqkyst3cl sqoiRdHpRCPiFZa1BBs8 LWFsaWduOiBsZWZ0 UmK1AHM3fUDgbA0zeSdb hywotU0uFcq+QmlydGgg FGG6WEt5P5SaTbl9ZQCg oBacFB6iqHLqTBbq Ea5fdUbioOruTG3aTCMw opsnf748BmFhw0faSGSn nGHxDEmqKSU2H75gz3E7 MOMkYYGxQZB1eLJ3 jJ2jdBakdnfwkSOwiOfw baYxsDsbOPuyPUudL695 PFMayFdoWyEdMPf6A0Yt Mpj8OFByqSkuHT6v zMYrLIfcYj5zeWjmcVsm LC0iOVSzosoma374AfTn b9wmKFYxuXMkGBpfLAS6 M47wd1H4JDPbXGEe XDC0uSU6hO8inQyekhiv bGVmdDsgdmVydGljYWwt TPanD891UFMkoFpvAkOx hVc1C7CuHao3YYVj fGejGM6anSPsLUxkUp6q lEgguRacGZ7qPEUabanp l001IlTed3ldUQNoyNYj TCqdIRZ7T49zv3X2 YGCnWOKqDPD8qRU2mR6e bGlnbjogbGVmdDsgdmVy dWruYEhkFMtuA404YDMb cDsnPlBhdGllbnQg GSjbKUw6Y7FxFvuavMB+ HO35GDHrIY49yKZbdOOh j1pnzAw9AvCpGFIhTUU9 tLcaLLwsf0RfYEPr L14pbZAci7B0FXWboGmy eQCfOuIgzHP2rF6uKWxs wnaur8qfpqjuUxocw7cg pj47lS28L30gESfh ZHRoPSIzMCUiIHZhbGln vt6ggP5sWx8+PGNvbCB3 cLF0rJ4mDOBlInH4BZff V324HeDcgBKvGueu x1loi2llzQl4OvX0WZBf bpQueWkyEVP1c3GtAj49 X85mOIoaRZWlDOEhVOCi AKQtiAitxt8lyG6g Ii8+YHSgdPJ5gFK4yF4d KvPfUpJ7TGhdM511AsFm mJPsRuizA59hH0FrpTJ+ CMTdNwl8XLZknLrm KU4yyZPiGXiwOv1dXPP7 JzGwDzRqWWieO2WxJVUy auiakrrqbHL8POGaNGLi uS13Zl1rtHvtCBUf kAVCvF3rpruqc1dzjktu XoMlWCZuPEq6XWt8EVGt fEevPlTpQTQ3KuG1DYH0 eQJioU1hfYwvomvi iT7wA7UbMPZqixycHo61 sP6fSuLxZyN2YYlhCdg+ K1MWChduUG3WD1kFIDgo SzwvdGQ+PHRkIHN0 aRxfBBskVRCriM5uHAXp Y0c7CyYsRnE9EXdlV0Uc WPRwetzgUc09xX1mXsBw BpI1FPcmH0BwzkE7 BEXsdSBqWZpfAVR9R61f e7K0XVChWCSuWIS4eDP4 uA6drYgntocpsLFewKdz dmVydGljYWwtYWxp K163GTVjcQwhBhMmRcL0 JhD4NeF5S4YlLaw8WNDo oCaiLM9rlALfOIuiFf1y fQqblYqjKH5mDXZq jnwlIWTuzB2qAPNfjMUg lZhdCH1rCBLpdcqsh875 SfOrAKV0LPPuaRBgV3We iS6wNfGmSRWcSISg L4AfhPWrLIwaF720WZef NtK5CPOhygWzD5KsKJKi bFccTjW4f9T5Zk19FQSQ ZWFyczwvdGQ+PHRk FAA9bUekCRhbOFYrhH0y TYJmE6s2KeXuQpF9BZgj J4NtRWTanqwzUq19rX1l ZxZcKtX2OGzjD7Jz evP5OOBxhNGmHFurALT8 F43sx7G4NVJbGESlENG0 lXF2hH7izKifbnlzyXMz dDsgdmVydGljYWwt LRvyZ409VZPpaPmoAl1E VAM3T0QuHkp9APRjpMzz KJ9gwESmJCudIt4sqGpq nYehOE9tZXSbfmkx VGGkvU8wJORseYWdiCfd VN4qSHXpqcusp783QrDa ONJ5IWMioKZdL4GefJ4k JbNyVAWrQGFvN5Yl pKSdUNmeQ590KVjxUoW0 VMNdosPbK0QtVPMkbKis LmQ8j0H3Nx8LWLbwzJO+ OQ18ql61K8IfAxzy Xqf9DAUbMRB5zTE8fC3e FRPmWZhnr4Y3aHL6X1Im ttCzfz1xv2hhTZOxJHnf D88aeQHal9F7BLQm qJT3HJNylIfrRiWbjJ87 Oyc+RVOsuQvsh8JcPciq s7fww8gspEb1SfZnOKQl qiZevInpKNK1d3Yy Lw10Z51vUSckSZOuURJs YVLrKMAijNmvfc1lxX3w Ii8+UGGkgEM5rBR9gO5k QuMcIrU8JWqrY832 ZjOnyQWfNdpzg6pft3mi mUp7RvPnMQApjiGngVpg LEY9m7SfVe43L2KrsPxs t9SyEjj9rh13iTAz l3I8cVT2Z7QnGSSdktgo kECyoPlmZK9yPBTinhpm MDHxcV7gBUGvZ9t1YiHl ThS3NMskP7WhggB2 ZJTayRFiLJRsyRFUcJ1c bixvm6zuhkppKgGrLLBg DYc7FXt4RBTnyPreVrAs WJF9TlK7JKC1eCZz rQ1muFnppqssvE8cLky+ YEz9r4pcpPJnMF4rzXM4 UF01NJ72tETda4S9hMB2 Z9JwKYFzdqrnmkfa bRJ0NPVwRDTlaX22Cz5u gZhgJp9iPGAmRQF8PLAa eAHbB9KepS2aRoHiETPp DNWrJ8CmvSStCUvc W082FKfjFqC7KLNdhbOg O6DaQDWbuNunCnN4s2U6 Mk4EPA74LM64QP42qZOd k2B4qVI1D9HnYORb xzqlvphyiPL1XMTjAYIw oH20Su3nyTsxEw4zWULs QEJ2HNRtlSAcL1WskK0v YfKiPRWhFLXsQ4Zy rOWhQLkxR167GNnnHzW7 WNZfdlYqS8WtIYDcwExv DxD5r1E3Ik1TFr11ZQ50 VM85tVNxf6H3eCP4 U9OdRQEykvzesjtyzBZ0 OCVjFZCjhY75Pt0fxUdz Gy6xQQFwUOO6BZOoaNTz R2FxmV7jHpYsVWTz ZSCxV7MekMXjKHcdH481 CHnhMpA4DFTalwXwM6Sn WDEzvPazBtM4i1Z7Nv7K KWmnxqg3P0GtGdjk dHI+OG19TZSsGI66qPMw dOYdt2zakLi9LeEtHRTt SSL5lXemTHahs9JnNZWl W70mjRAow1O0WLVj bGx (more content not included)... [facility] Wound Care Noteon 08-19-2023 Wound Care Note [id number]#1. 00OTGTIFF [facility] Coding Summaryon 08-17-2023 Coding Summary HTMLBase 64 WgfbqbwqIXg7nJf+PGhl YWQ+DS6MISCyR12jhIEj wD0mV8VLBXmOLodfMSBO UZpFCkEvzsRuZK3djRVl ZXJu IC8+PG4lRZNeMvlmbTVz a8J1lXY1G74mmq0iJBvg kDR6PSXmJhZyhsxrx3cp hUm7UWsuUfduWlYk AEMzpI49RWG8sZ57Yu52 yTPvkSVmi1nzeMx0WmGa FTUbLNQ7zYcdTNeml5Ev WNLnZ54rgCApo0I3 IGNvbGxhcHNlOyBlbXB0 kF3jXOtdemxer3dkimuf Ydo0qp94aEHoj1Y2aBH8 V3EukrI0AXEuiTLn FiobwLDXpW9ldvuxs3te rfdkTsIcAVUeJAl1UFn4 RTHtfNbsZjCcLE51DMX0 IEGtwvIoO4GgVFLt mNmmQhK0o4M4Vm7RC3UR AkrcG9CIQCJCANjbuBU+ VN39cs30J8KoQwggTvf2 WRMgBHC6jBP3jO7n RWSeTPqfw0D3pUO5V4Py lwNqzc3za7ssCCIfQNoc J88btGNvc3N8CIYiyEX5 GSEdpKgkAvPykA75 Oyc+UZXmjLztl0IvXuvh h9jbn5gqyKg6CkbfRYHj msEllXryCII4n4VoPp2m GSJdiAI6kZN3gF6g VbQcChC1EGdiJ749OcKe fJAdJtseK95bR0HkoKS+ YZHtHva0IZXpoXzpFK6d Y3EoPOOcjhxxcQRb pUobFG9sMHKxptkmPESk mS9uWTAtX8y8TmUpFfB5 RBqtC4PzTFTfobgeEw45 kF2sGjHdAcN1JQsv N6YllhU2XNFkoGFzLVws FCA3V77vd8O3XXQlSNHi FOS7jTW1xS3nkEyloukc bGVmdDsgdmVydGlj JRzdXYhmD875VUFhrSsx PkNvZGluZyBEYXRlOiAg MDQvMTMvMjAyNDwvdGQ+ UMUmIFM8wUfwLMPl dWXqKCqyNq3dtXtkqSqw SA1jBPOakbfsRWBmqU4g YHPssRZalBfcGI1uTSFs medvf914ApEqSCU7 ZZVfmHKvG6OahX9cWtGv XXNcDFHtR2WjqFLiASpp T173QCorKmV0OUPrymEs K8DiEYVweYpwWwH9 l2H8Df1Si0QwrrawJ3Fz kQCyZzQiByxnWPh2N0Rp PjwvdHI+ED68XIVpFE25 LFr1OTG3wLdfGWor YHShL5GlaV3uRgJpKZIb ZGRkOyc+PHRhYmxlIHdp ZHRoPScxMDAlJyBzdHls SR1qXy3qXCLuSVHg yVcfnVGgQaQjr5tiOXXu KSylKJ5jwHuzU4XbqRW7 ZBSax1u5Wb36V92kH8Mh dXA+RZUzrDE4gHA9 zX2fUpNpRnU5GTugZ728 FrQprZSiVkqal1wrb6bi yMt1PwK9PVXalpVxqYyk CBK9z4DmHn32U99j IHdpZHRoPSIxNSUiIHZh lBiuef1gxO8kDe9+PGNv gMH0dDU3pC9aAsSfAdQ6 VQczH693JhFftNRr Opjxb2rbo7vojAw2JgDo SSNjtkTbyRpsSEF1l0Dv Ik55T8EykRmgl0WyCqt4 ze64zPZts5Y5oSZ6 G9IbMNTdbnxddTCouQou ON7jDNTzaqzgLYDzeV3f VXEqK8l5YiWhKoH7VHch B1WyprF2SRNepPBb XXOfaUWKsT2mleesb2nm zcaaMmTeWRLzIVw7GKz4 DLYptXixVmArZHD0FsK4 JNC6wGQotX1hnMcd jylaoF7tJys+OCA5sKPf fXMJJE1sLiifoDN+PHRk TTO9vRslRBdwNHWwnC4w WGKtY7c2OpLcMiQ4 WIrtZ0IsuoS3ELLzwZQl WFHtfXMTwP5tuwjsa4em lbcaNfSkVDVlCQx2PHj1 LWFsaWduOiBsZWZ0 MbP3ZDI2sYZivS4nfMls mtkzhU7zAyr+QmlydGgg GDR0ABq3E6BzWho5MGVl gBukGS4qzCWmGJqf Ai8esYpibObcEV4iSPBz kmccg417JqOmp2isGGVn qPAfJQewCNJ1P19tr6G8 NJZnFUYfVZJ3fSN0 iL5pdAyrspxgxIXytUtr woIuyTvmYYnoLEqiE093 UMLtbVkvDoTwWIo6F8Va Yqq0EPKneWdtDP8a oTQqMTzlXk1qoPprhRrb JP3hFKWiuvupt947QvAt g6xbORUoaADcUKpbNRH4 K63bh8R2SUQoREOa AEH9cTN0fS2yiQseqzaa bGVmdDsgdmVydGljYWwt NLddN983DQCjxQnaDnQm fOu3M3XyIhi1PANq yCkfBW6lyMLkMBzfXt1c mMufhRthYN4jYIIeywil b272ErQrk9ytEUSgjWAp WCnaTKX1P45kv2E4 SGHpZZGdIHF9vKC0aL1p bGlnbjogbGVmdDsgdmVy sTqjZEwpENesR066BKPp cDsnPlBhdGllbnQg IWwvYWa2B0YaZmoyqJJ+ BN32QKInQY67fYLgmWPl l4uafVr4WdFwRUBbIJX1 gLkpHLmte4CpVZJx D76evBMvq5W0XUUwcDwj bVBoXfJanSQ5fS6mNDqa nozbs3weokgkVutbs8wb jy67oZ82H94aSZag ZHRoPSIzMCUiIHZhbGln xd3qrJ3oRy3+PGNvbCB3 oWT7qP4fTYMwDrZ3PAbs K776EpOvwAKeRhjv f1yjs6ofkGl7KvZ1GKFf ieFucGduSTW4y6MmEe02 T11gBCgoAFYiCHZtAGXb QMVbbFelsy6vbK8t Ii8+MUKxxCP6bWV0qU5a UzAfQjT7KArfX755MtBq jKPvMtyfD13sA9DijYP+ MGBxUbh9JFLrhXei QF5ywTUqJJdoFo1kBPA2 SbGjGpKrWVneN3HjEGTy zhnbfbvviEX4RAEzAQDv wD00Bw4rgIqpVWKz iPBZdY1ouhogw4hnxtjf YzXrVUGpXZk3MTa7UXOf vXwlBnVpWAU2EkL3DPY2 iCUtyR6tdTklyxqg fA9sH7CeYABtiqctCm96 xW6fYoRaGtJ4EOouCzm+ Z2BOZjfeBD4BV5fYAKwb SzwvdGQ+PHRkIHN0 eYybRZplTTYdmR0tWOLe L1w7WtHgEgL8YGhcL8Tk PHXnlftaJo15nF7vBwZa MqH5PJysM2JohmK2 OZVlgNUjWXuqZYJ9B24x f0Y4HAWaGUCyOQO6gLV2 wK3qkEusywapgLPnkDhl dmVydGljYWwtYWxp R638PEAqgLjqXeUrFqR1 OpD1VyG9S2PvUij5UUNw xBsrOM3dsDVrJOzyNs3r eDslqOulYZ9lBNMq owhuCDZmcE9hKVRvhKOy fLzqUV8mURMaouqyi787 LvTsHON8KBWyjFHeL8Fl yP5xDuSlGSXoEBXj I0WruQQtPNnhM729GGyh WeA7GMGdgqYpW9WpEGHc kItpQnG2x8D4Hn79EOAK ZWFyczwvdGQ+PHRk TVH0wWxoRGorOHBgtS0a EKFfG9p6GoBzYaY8HMeb D9RoILMfzwpyAu14bJ4x ZfRqCfM7QVhlJ6Yn rwQ6OOCvxKRbZBylYWK9 S24gu2A7MXKzLTDpHLK8 qLE1wC1waKhryrqmxOHb dDsgdmVydGljYWwt KDnrK997TPUruAdgEa7B IYK2K9SuCdo2RJHjfNoe LB2fhPAbMOuxDx8vzMej gEggSK2nRWPcqcbk NEDblP7wJHAwaJXdmTid NN6bMQEaminrb603UxFl FEF0SJPsiKQfA6BshU4r UvAdTJTsTQRoJ6Cw dVNjYRizA247VHyrWnS8 WOOyzqOlF8VoCIFphZbk UeB7z8J7Bn5AVQknuJH+ BN16ga29W0PdJbzt Nzr7IFIcUCG7qJL9qI5a VCVkHNyzb0A6hWO8R9Ff qjEhpu7us4iwZLUsRIhm B98stMAmc8N4ANTv nAQ5GCCbvMudLkUbgQ45 Oyc+TWAmzXbuq8VsVekt d6swp1qhjBl4VjKlYAQe biDjkWxdJRM6o6Xi Aw19J29fMQvoZDQiTKXd FUTrBYRkuDxrps8fdM5c Ii8+WSJolGD5uCZ2pA6l DcShZlL8DPkoR928 KwVpfEVjKsmbq8sgb0nh sXu7OgQeJZPsrmVblWsn BUC3k7EmTs28R4UanJmm h3QdNtn9py34oJGd a7C5xZC0Q4AtKJQuxzzj nDLmfYakYZ1mNIPdclok PRHaeF3oJZLkU3y0DtPi ZiZ1CTthT6LaylN4 XTAthJXuJBDquEVLfI9i qjiun5roidyyCxWlJZXs QLc4BQs0YVBayHtnDyRx PGO0NyC5TTE0vGFe fV3ubEozvzgluU1jFbl+ QIi7l5ahxIPcFJ6pcPF3 RQ64YK78kBErg7G7aUX0 M3OvTCOogmuyfnrt dGE1LTKuQYXyaD92Gc1m lGjlLy2pSNItQAZ1DRRr jBBmB3DbgG8oCtXeSZQo ZGVkL4IwzABlBAfg Q157TErfWxC6FEYhvqAu F7VlTVRqlIwrZdN6s7L4 Hb3TEO10NU40DK23fTNn k4K5dXN2V4VbWCNp echbhmwymEA8UOEeTBFf mP74Vc5geOllQs9gJPDx YPV4TUItlAMrT3JggW2m AlUiVVVyKFNmE5Qf dBKwTNcfQ592FHssQlR4 VDMimdQyB7PaUMWvdDfy WaZ0i3T8Zp0HTm28CV35 AJ84gBHnc0A9sFU6 E1WuBYJouoqxlbgcfLH6 VQZxJEDrzO15Cs1vxTwc Jh6lHWCuNTB7LEUqzGPe R2KuxF7uCrRwJAMu IHHpQ1YocQSpMVgwJ516 AXslJzB4ELVtjuSsO5Us ZSZmxSpsPrB5q8N4Ts1R ULxfykm1V6EcPldn dHI+XE73GJIhRS09oGXv qIZpz8uanWj6AqYeWQCp VHX3uHjjYUjqt8TgTQLv Z48loLQlz5K2VGLp bGx (more content not included)... [facility] Coding Summary HTMLBase 64 UpvxazwpLTt2qTw+PGhl YWQ+PP5ORQLdX77mbKYr kW8lL4OPZOlXEokdZKBL VHrWGtDouyFzNL9woOPn ZXJu IC8+OJ5xNBIuJvheeVYd u0Y6zRM2H17nwh8jDZmq iKL8OIJjEcLsblsqk0aa oSg8CWjhAotpGoMv SMYcsH74WDY5mS56Dz79 lCUvbWTqm5pubQd2TpQl HAYeOQN2aUjxWQyvz2Pd NFKpT08roHQwd2R8 IGNvbGxhcHNlOyBlbXB0 iW9yXKdpcfwff8bcoaeq Ris1yt02fRChx9Q4wVT8 E8VxtsK3IVMmfFPv BmeshZYRsS5nilwcr1lm dlafGhBlEVFyBHb7IIn5 GXVebSgtLaKxAX50LZP5 PEZodoYfH2UbEHRr uVeoFyA0f7V3Yb2JR7ZE DwgrX4XDTTGQTKcknFH+ DY22mh59E0UxUpsaWzq6 RHZeKIE6jBT2rW8h JFXfFKlon4L2fMW2I6Qt xxDajk4vb0wbMMGqIOsh P30nfMIdz3R1SDHugQE1 RXCpvSzzOtKhjY15 Oyc+HGTzjQtjj4VnSkkh m4jzc2ihwNm1ZdtxOYLi uvCcdWxvQFK3b6NsSz6q HVDhuJU4qCQ2rU5z GsIjDyI2SVqtL566BxNg vIIrLrgtT89eI6IrzTJ+ CIYqOjy9VZRipOskZW1w Z4TcKSSurfeojDNm nBbyTP1bRUAboxpaUWYk gK7vCFXhM6r2AdEkIzF6 TVxyS9ZwCRFgqalxBb38 hE9fCmMtOyU1HCkr B3AjrlM3MSNivHIdAUez FEO2C24ue8W9NGNvJDZk QCY9uOD2yJ8xzNdwigpo bGVmdDsgdmVydGlj QAgpRImqD085PVYosEct PkNvZGluZyBEYXRlOiAg MDQvMTMvMjAyNDwvdGQ+ PUEbNWN0sAiuQJEm oZKaCLxmWg3heLhamDqp DJ4jOFYzyjvyVZBeiN1f FXKmhZLkqStyWH7iLFYv shnwb318JqFjELE7 BBZvyXAiU3NfwK3bGwSw HGVzKUAfH3HgyPKmHSac P558UDjqEtZ8VOKspkNz R3HmCHTcmSinFzZ0 t7C5Ml9Bl6LumrcpE8Cu kVUpZvLeKsqpSMn4K6Vw PjwvdHI+NN90LCRaPN29 LNw9OAG0oTqyMBxt NKRaY4OwpI0kDgJmLALh ZGRkOyc+PHRhYmxlIHdp ZHRoPScxMDAlJyBzdHls ZF5aMv7dFZNzLFHw eCijaKSzSpMti7rzJUDo SSgnNM2mpZkqH9TsrZB3 EZCmu0p3Iq07M66qR5Tb dXA+XNHawWG6nCB2 hI4vBtTcVwX2FQhtL801 ClZulSMnOsmqo4rjg7hc gVu2EzA9SOAtbrIzzZcw OOF8y3BdEh23K21h IHdpZHRoPSIxNSUiIHZh oUnwia8smF9yIq8+PGNv iPY5dJC3yQ2tYaIkBrH1 LQubP103IfVucVPl Gqspj7dik6ydiZe4UhTl GMMrhgPxdJffPAO2l3Ut Ml87P9EtlCccq9ZlOec3 gm01hMTzm6G3iLV4 L7LkFAHesozagCZljHah KL0dMBZmlpzgVUQmnH1z ZMKbZ9t6YyOmJoL3AFoq L0BydlZ5HJPukURc HZDgfNXImR1bxybhn4rj uhdrHeXyKZWeLQd0HVe0 HUAoyWhzIgKdCCQ8WjC4 CCN8lRHbuB7lgDaa zpsooG7aRdj+ONV7cTHb mWUYZS1oWmdxoYX+PHRk ROF6tTiiUWdfOFSjeO0n KHEbE6g6ZuHwNeA4 WOcpQ9BofpS7GYCdaUUl LQFmpNOLsY3gjeive5ut grmgRpExFGYuLIb8DBv8 LWFsaWduOiBsZWZ0 QbD7HTO3aCJvuF8vhMhj ykyfmH8tAem+QmlydGgg TID2WId7J4HbEyl6QZBo ySqdWT6pgDRkCJcz Qe5azGpsbYzrQD4sPUUj kzzxm989XbDvp8uyHPKq oXZvSYhrIOE9S95tn6G9 DICfNWWjYSY2wIT5 aN3iqVmydpabiLAzrCub afKylTrbEUdnCNaqD231 LFRowRexJrRgTRn1O4Qc Qaj6NWKsxXzvHM2t zHCcMHdgNk7yiGlpwAcr AH0xTLPyyghdm030OoIm e8jtHYWhqPWxZBkkGJG2 X64ik4V7IUClPLEp LIN9eQW6gD3ovWvaskfj bGVmdDsgdmVydGljYWwt BOivC248DIVadNycHtWy dEc3M4QnVaz1DZJa iEkyLU0udHHlMQuvJb5c pHvfiYkbOI3cNCSryahj g987QjCis1qlDTQjwBRe YQkpTIJ9F59tl3T7 BOAwLWGlHWI6eZY9fZ1e bGlnbjogbGVmdDsgdmVy vJzaLPtgKLqcP149QDAb cDsnPlBhdGllbnQg QJnjYEm6C3DqYhefyYA+ UO51ITVkFH53yGTigNEo i8dgiUh6DcMgWVAmYTF8 rXpkRIlsu4HzHYCd Z49ryQGho7W1TSOdqCqy jZNfWgNyjKS6wP0oERpx pgyak7texkldPpqbm7zs sa66vY86Q69iDDql ZHRoPSIzMCUiIHZhbGln qp3neV4aFj1+PGNvbCB3 hAB0lX5vOZDrJsN0BHzm T203YyEirDHnTtvb r1por7rwvVt7UcU6ZRGv rpHprGsoYLC4f1OaWx43 U04bGBoyNQYrRDCbVXJr ZWIvlUcdty2ddS6v Ii8+HVHwfPL1rXU5jC9y RrClDcL7CWpwV400KtNm rGPiWgiwO48fW9VqbLZ+ JWPbKpa0SYMazJwx UF8ygEZeDIefOq6vRUP3 RgUqWlMiFHihR8ReINGr ybxgsyrweSL1YVIuQYYf uF00Rs3flQfdRIIp iVKGkY0irejtx7nosgdg KuEvFHHkGFf5AMu4UQSe qElrWoXvUUE0VmZ8HMI3 iSVpnA2blGimvcqx aC8hW8AxGQAmzwocWh52 lW2gPbRjBuV7FLrmRmh+ V9UVHfxzNY5ZO4iYCPmy SzwvdGQ+PHRkIHN0 aNyjVSqgSZWztB0oNBYs O8j8DfMvApS2CAgjA6Yr WNYqifqtOp33yE6fPqYc HwT9FYecU4FyzhW1 FPUuoRTiMFhwTBL3C83b n6B7FZWpTPSdTNA1pKD0 jX0rtNocoutnoUAdjKwy dmVydGljYWwtYWxp M237ETAoaOnmWuDwUaV4 EbH2ZiQ0P9PqNwg3NNYs yVvpLD2atGGtMXecRl2q xMgybVjgHN9qWGOg ikcuRXFqmM7jQNDboUXl wXyuVH9tDURezsnnd061 IeDvIIH4GZRuuWJfT8Mw bZ1uHoXuIMKhCKYg A9AaoXAlCMqqA507SRmw QzM3RGMaebXxD9TkVKMu mCgnAjO1p0P9Tk32ZUMV ZWFyczwvdGQ+PHRk TEQ7sJtvLHkcDNDxnN4c SWQcF1q1TtVvZnX6HZmk N2AmMZXsrxusEj16lT1x ZzYkWpM8OUlnL3Af usZ1YLKpiUHhULnaJXF6 F99wy7M6UULdINAvEXV2 zOV4vV1vsGjohqgseTBm dDsgdmVydGljYWwt RZofV965XPFgzMzgAb8R BIW6B0GyGvz1UZCarGuw PF2ttZDzSKqzXc9vbOpk mRyuDF3kPJRpwpwm AUGbhC8hDJLtwVNrwEdx TT1tMYDcvyojc662FrLz KHO8TCCokHWtM1QnxN0z BxKkGOWnDWJoR2Db pSCfLVhpB402EQowGcY5 ZYXagrRaH3RhOJKlbGrc EnC7h2K9Gi2CWZgfnXR+ CH40po38P8HmBavo Lbb4AFLcNLI4kDY9sW6g NBRaTZhuu1H7zZC2S4Rd hqTujv4vs5coENGwOIsp L89cfTEbz9F7OEUd gAA5KOMkrBhuPdOmgQ69 Oyc+DNComPyzi6ZrEome i9yto4etnZm1MsMhBLTj zhNdqPzrLDW4w1Qc Gu51B37xOBpqBCTzVUCy WYObJCRslSoltv5dwU9g Ii8+HHPgiRJ4rWJ1aB8w JwVqNsM2RVeuY006 RlXsnDGfIfmab0nnx7rr gDd4LvQpPSRyxmWfcMnu ZOM7x0GfBl35Z8NtiHky l8WdIoi2fj33cBGm p5N6vFU6W7CqULDuzpbh lKWznEqvWE8dIOXxvpgr AIOtfK3hQNKmF9k6QlSl AiU0BHibX5KzroV4 VXIlhZKzKHXehJDIzT8y lfrfb4wwylpiFuAeRFGf LNq0JBl8UNLitNacJxPy NLG2HeF6KWC6fVDb aJ3dlXnkruebfM0fAlj+ CKo8j4powLNoNO1jlKT3 NL49ZH97hITvq6M3mXD5 G6MjVMNuwbwmejpk mSH4VBRfSWYipB33Xz6i uMuvXj0eEPViQSI7EPAb xKThN6KscD1dEeNxMTUl ORXzO3QcrOCqXLrd N230AQtzBcF0STVcwpEb X7IxKHKfkKdnXzF1a8X6 Cm7TXJ50SN83NV66rEYy c2I9fTW0K5SiPOBl loqdjazvrNL6WWDmGWOa xI46Mi6fkOxwRq6vEZFt AUX2YXSjeXKzC2ThcH1l LuJySYUdGGDkE2Oj jPZnEOvhE847URtcYlA8 PAMfpeWrB5RwBYNdhTay GwI1o0E8Vx9YIf68LM62 ES58aSXua2S4tHR1 Y7GhFUNtysmamtpelKS2 JHLwDERwqF14Kx9wuQej Kw0vCTFdWKU9DQWboJSm G3PpyP8fCrFmJDEp LXUcW2EiaZCoNQzqU508 VDioBmS2REWziaRxS8Pw CYUhzRpvVvD3o9F1Bu3X KStsiwg3L5OvLldq dHI+AR11WBPnRV87oZSn oDFpv5bxyVv2EyPaMEYo IHP0oLedWLfkc4FqQFNe H71wdRUjx0G9EXCg bGx (more content not included)... [facility] Coding Summaryon 08-15-2023 Coding Summary HTMLBase 64 WwrsemmtALq7jIb+PGhl YWQ+EG6JCHWfK73anMHq hH8aC5XGBJvBIhqzCCDR NHhHUcYpmjOxXE0riXOf ZXJu IC8+XS9lLUUiMlrofIQo w4H8yZW3G61qyo7tTQso pTK2IYYkKtDlrfzjm2uy lDq6FEnoUpqrInXv JGOvdO49VTX0wT52Zg94 xVKnsJOpr4jumUy8XgFv BTObBJB2pXjeSWdev0Tl AHHhY19iqAWtx6T8 IGNvbGxhcHNlOyBlbXB0 dZ7sAQgqpavnw9tpqdfa Gxf5nw11jLTrk6Z6rVV3 E4PngrR5DQTnnNHp GiulxVFQwW8mrezpo6ah ucwdKbIjPKXeGQf2JPc3 WXYheIbhBeVdSW28GYV8 XBXejdUyM3NrBLHu lRuyNxD4t8A5Bi3FP9OE NbpnS6KKQBOAGJwbcMO+ AG67jm19V6QpFrmeZbw5 WYVlXVT5mKK8lP6x IDPoMVpqw4I5oZD1K6Bb uwXkwz0xo6umELZaIKkd V58kcOUhd3D0QMAcnEQ8 MFUizFpzMwOaiV69 Oyc+ERGfmLwwp1AtGzoh a2dep3uscGc0FgyvKAWw iaUyjFoiXKK8t9MhOk5j MBFecWR1hXI1uY5w XvWfKxY8EAuoK880IbAh pJLbGrixI56hX7JjbRQ+ SLVbEtm8NZFdbLrbCK6g K6RlWJMgkvazxXZg wGpwZX1sEESjudtvSDCa dL1lCTBpX9j4JuQbMbD2 KXccZ3VcVYKnhpitEp68 yD3pIpYrGoR9ZVuz N3QnfhR6MBDshJJyWKoc JPV2N21wb6O5WZFeLMPz IBT3vYA2iQ3ydQdvreeh bGVmdDsgdmVydGlj RIdnLHbdX248JWDmvZws PkNvZGluZyBEYXRlOiAg MDQvMTEvMjAyNDwvdGQ+ VXOfAUX9uEaiFXBy hWGtRIvmKf3jxPrqwSba LB1hQVJouhlaETTumZ4s FNQshSZqfGiuQC8tOWDv nuhjz415ZlWuKXC1 NPPzlVSqZ5CmjT3lJsGk DCLjWUVtS2QjuUJnOZax J408IJhyIiD5VTXpnsQg T7GoHAPyrHgxScH2 a7S1Pk6Qq9BvallkG0Rr wXSlNyPpTrdaEMk8V5Ke PjwvdHI+ME71VVNqFA02 JAh4FVW4mPocPGkq VEGvX4BamE6zLeMhOKKz ZGRkOyc+PHRhYmxlIHdp ZHRoPScxMDAlJyBzdHls MK9rGr6tVDNbOQDp lZfwaLHtUhNns1jwVSBo JIvwNH5aiFhvT4XnqZQ9 FMWha3c1Rx77L90eZ2Ma dXA+HTGyaGP4vSS2 oG0uVoYiUyQ0KXzwP902 VoVhrIQeGvdtq7dyk7zx iWn9ZyK7HSOhosJovRws JME1h2HhGq66S31h IHdpZHRoPSIxNSUiIHZh lWwjyb1zrM1cZk5+PGNv qPE1xWL2yL4rNlBzIwP8 PTanA348ZyOaoGQn Ofnzs1vsd3bjrVn0KxUi EAAxxaJhkQjfDPZ5d4Cs Cf33R6FtpEiun3MbVku2 gt68dRBex4N9wXU5 M8CmWAIpszgbsKOxuNta JN6vPEGvndkyJWAjeJ5b GCPlT2m1WlRxObJ0CChn Y4YvutX3MJDijKPb LIAvnOREgG7xwnfjx8vy dsmrZqOdBMGfKMj1JCu2 GQKwzOnrOzNlXSO6ZcS2 XSN3pBMkcE0tkSzq jqostE5zNrz+HMC0xAHu iBXAXS5kJgkvuWS+PHRk FEQ2qFriRHdqTBHkcE9p USFxZ5y3NzEbGwE9 POuxX9BgldD5CWVcjJKu HQSjfOFKvT7wrtxes2hv nuskXaQdQUNdUTk8ELh8 LWFsaWduOiBsZWZ0 XoB6FCO6gERjbU5rhKli xgvbyM6xMiw+QmlydGgg SKH7JYa6I2IlBak7BHHe bPptAK5diTDcOCvs Cb1ejFgmvMsxEK3oJCBx vtqmr844RhDoz8smOGMs gMLtLWuvQDF7E37ey5T6 RZAuOCFjKLF5aBC0 eQ5pjLigofcztBErqPbn ujCtfGlnTOvpRAdtV379 DELukUgcEoDzYZp7L2Xh Dxh4ONAefAjuJJ3d dENyUDwwJc2ivAlkwMvw AD5gIPKjqpjtz207PjLx p8opHGJrhITcWFisAZS8 V31ew5H5AJHmZCVg OGH4bRN4fF3spQcnlrkf bGVmdDsgdmVydGljYWwt ODtlF135JAOwkBweWoYg vOb1D9QeLgv4PFXo uIquEX0peHLlSBryHo5l bOgxyFsnAE7uJYHzplaz j374BgHaq0wxZPUesICh ASvjHGR2M16wz2Y9 XLUeGXJhUWP3cLO9yK7m bGlnbjogbGVmdDsgdmVy qBvcLKwcEDfpD823VGZu cDsnPlBhdGllbnQg SRttQVi0G7MeYhtuaCH+ EZ29VATpHA38wHOqiVCm v1axkOu9GtAaUEPfDNT8 aUzeHDmds1GoXWWv K31agSYfp5R5UTBorGry fMEsKbPdwQX1lM1bFTie mohri1wnihhpTlony4gs gk63qL39O30eRKfs ZHRoPSIzMCUiIHZhbGln ji2xxI2gVf4+PGNvbCB3 qOM0hO4kDDMdMzK8PSus I831QvJglLQhBgto k7jhw9yklGl2AoQ9UVYy wiQwtIouBUI0u1ZoJi06 G07uYOqgHWKrPZHaVTNm IRPkoRmcti5wqV8v Ii8+DMFniGN2dQF9eM2v ThUzSyI2DYxyQ018ScSd oGQyGzqzP38xU6OgxFK+ YQOtXlq8FEInnEyy IW1xnENrZRxtXr3lZHI2 VsOeBjCkSHklK3IcDDKh rcmqqpcczOK7UWFcKDZe cD89Sv2dlGooIEXq vEECgW5xnnfjp6ggpylv OgEuCEQaYUj7WUh6HAPe bGynIsOjRPK3FvJ4GWL5 iEUcoY8utPrkwvct iH4yX6VjDKPmdnebQj89 lB2xTiIoVrR0RPqlDkl+ O3EARqbeEQ6AV0pNZPgi SzwvdGQ+PHRkIHN0 vZlkMWecVYElwH9fUCWj K0y7GdItVkC3JPhzC2Er VFCuyvpcNt67xO9pTqUa EvO3VKueI4WxjfD9 DHOtbIOwWMzyHWN0Q78t u3S7NMYaCHIoJRG7rPM3 fR5oqQdkqxdaaEWnoBsh dmVydGljYWwtYWxp K865XGMqrJdhHjBvPcW1 IjO4XqD5I6LjZdv3JVYy lTmiQV8ohSMoLLvaPq5y pDbjiOtnIB1yGSZf kyvzENPvvT4mSHFwqJBg uOofZA2bMWWazuwlp098 IjFtJBB4SOYesLTpG8Da vM1eXqEjWTMwXWYj B9MumXOwFGktV819PHyg UxE3JYHdreUyD0WwUWPu nNliXwP3f6E6Du02USEU ZWFyczwvdGQ+PHRk PZY2tYbnHXpxOMLbuP6t IXKaO4s0JgIvNuJ3LFnc B4ZdWDPecttqKz96vJ0w AvHnEuF8HYucY3Jf vrQ2RNXrqULsDTniSVH3 Z64cv4E3GSZiYAUlCRW9 vER6qW6hrQtvvisfoHLl dDsgdmVydGljYWwt VSftW433QRJhuYeoUa7T GLC3J4SqWuv7YDLrnSnj NH0vxWVmZNzcYf7ivSmp yIkqEW8cQWSpixno ENCihC3dTADvhZEkhPcf ZJ0xFXXvqoulp031KeZg WAN0DEFjzSFhU3CetI1m OlNkUCWqKXYgS6Lh cAKbBEucE281OYtdWkW9 QXIuoiYcE4SoQAJnbQlh ZjC4o8Q8Km9LGStqvQF+ HA89wm44I1RuXrsy Bdm3HVHeCRU2fPQ0vA1k CTIzANsfj8Z0fJR4C1Ia xuCrbz7vw6igZUFaUUsl F42bzBLxe0T2QBNy jES8EXRdhMnpGuFkiI92 Oyc+GENndEjoj4MyPilt u2dvn8fqlXh0EaUjAODr jnZsxSsqAIO0p7Ah Ct93R51xWAtbUSHhBYKb FGTyVKWtbYrich9sqT5n Ii8+ZDDsqAL3sHV2xP5y TkDeXgV8MQajA466 LhLhqZXdPhuhp6xql6gb nZl6ShQqJCJixlXgvIre JRN2z5KcNt62K8DyaXim m4CrHsp3mn13cRSm d9R2bSP8I3DuSXUegexj iJZhuMpxEW5oCOVzmnsh IGUnbH7eHBTpR1u6HdSg ZaU3LFnbK6MvctH6 HMZlxKYlANBotXQQsV4m pwiqw6fnjodgEfGrIVVl WPa7FQh8RZHhxBziYsWf TGD6EkX5VLV6iHSc rU2rlAkhgrtllF7tOfu+ SBy1o6utdRKwPQ3daIS6 KU81GU54jZHxz4S3kNY8 T0KoIKQhmzoxpozl sZH6XBDgHHLvtC26Ha1n wWvdXu3aVVMkFIE3LXDp jGIaV0AfwC3bFuTnMXIx XPAqT7FzjPPlIFxy N701NTlbWsK6PSQqgjIe S1GoKGKmgQgkQzF7a1T7 Ct6NUJ49BM03OA76rOZm u9R8fIC7T0AzLGVz mcsqjvhzaFQ6MIBrERBz mU76Yh2rtVmrOl1iAMMk CNO4RJZooKMcE9DfhV3r RaAxIMAhUNYwA9Ug zKHqUUyaZ998OYheSqZ3 CQXjdmCcH0ByMJBbqXlw NvE7s3M7Md9PRk23AP39 VT28fJAtf3C9uQJ3 H9OxMMWujuqsjqmgwQV2 YDFiPLMauO43Jp4ecAnb Js4xSFVtJYA5HIKgfVHg U0EqyD3fHoSqKKRv EKPoQ6BabTKjXMvyL872 ESjhYyM5UWBloeHeU5Rc MTXbqCcmXbP8m4C9Fy6P IGvrhfa8Z3HyOkar dHI+RQ94HRKlZC09mHFt nBRmg6kqzXc4DfZbCZFw ZPG7dDmgHBbkr0SsOUJe S75asDXhq0A6RYNj bGx (more content not included)... [facility] Coding Summary HTMLBase 64 RalamrnbNLc1tNk+PGhl YWQ+DQ7EZCNsN14uxCDz vK8tR5BPLWfFRgzcGHJK WEfLCiHyegKhYA2ggOTr ZXJu IC8+BC9tHMFmFcnxhENp w4T2dAL1V88bcp2kQEvt cDZ6MCRrYsGtgdzdg7uc bHj0RGgiInrxLpNp TOCgkM54DZW0oM32Vu19 oQOwmVGcx0gthPq3TrVd GFSeFBX5kBtlARiqr1Af QDXsV33imBBze8P4 IGNvbGxhcHNlOyBlbXB0 jI3mASmjgbkan7rccptz Kbr1lh13nVSmy4B5zWS2 J2WnsqN5MYPesWAq EyjotYFBlW9scxaau7ny jyfjFdBiDIFaDGm9FOs4 IXZdoXgvXmCwAA55BDP3 ULCzoiDwW4XuDNEr wCsoWxF3s9S8Rj5GU9SQ BzlgL6BLINZXZAkbcJL+ CH36vx88Y5QdTjbcZzi3 YOBmYFE1tCN3qQ4u JPZsWRxmp6R3vYH8B3Ex roGnts8pe9mhZFDqQUun T54fcFXlj1O8JIAjnIC9 RSAucWcfPtYdfU73 Oyc+WCUgaWbux8NnWodb n7ssn6vrsCj6JlkmKNQb jzOmaRdpKXI7j9GwBn9h FZUzwOC1sXP6fU7r RvGyMjH3KMnfQ425SjFh sJHrXmuxH45bP2ArhRR+ OPGlNid6UCIkuLlzMQ1q I0IpBLPyntwmsEEm vDowMV2bUGUamjknVNRz aJ2qUTXxP2u7HmMjNwU2 RDomC5JhIHWpibsiIi43 rM0gZvDzYmD2QDdr D0ZkvdN0UNWtsECjZFhb IUO8T60ki0Z0NNXvMOTh DAP1qFC3iN4reGvzbunn bGVmdDsgdmVydGlj FExsBGidM451GKTohYji PkNvZGluZyBEYXRlOiAg MDQvMTEvMjAyNDwvdGQ+ KEOqNJP6nXaqQRCr bCSbDNwqLj6keNvydBaz NU7dYREqkghgEMLdwZ2c VBSvtFSnxVvqBA7tXEMo mnpfu074LwDmMSZ4 UGAxdRBjV8OlsD8aYiNn KFFfORMyQ8SdoGYlTNfn P161YAkwScS2RKHpycNb H0JxQHWhyDqkYfH9 w9D4Sd0Xe0GljtcwK0Yt pVOmJdXmBkheTQr4D9Bc PjwvdHI+BE36MUJqPK24 WCj9ODT6mVeeBDoz SJZvS2HhqI1cUhEuICEw ZGRkOyc+PHRhYmxlIHdp ZHRoPScxMDAlJyBzdHls AP3bDt8pNTSaTYLm yTojiQJvNjSvf9djZHVc HHeyUM8evNaaH8PtpSS0 QAPkd9r2Vz39M57kK8Pr dXA+AIVdtDM3iRG7 iX9aOaQlKvI7CDmgL648 EdEzfVHiEeddr3ujj6le hLh7DuU2OUOfmmQnxFhb XNG6l9MfCi35W39c IHdpZHRoPSIxNSUiIHZh vJzyvc2hsP2nMq7+PGNv eYB4gBJ0hX0aUzWyMtC4 XCldV153BmPktIMv Tmsks0zhw6mteYp7IqUg DVVqwpVqbUgbZUK2y2Tv Cu92R2RnqKkrk1SjTak1 cw06wWFqj5O1xYL5 Z6UiHSKputinqIChnRhk IZ2qIQUuxpxlXRUyuZ5j LBLmG3f6UvUnMzK8OZzv W2TyplR3QPScdQTk CEScjPAJkK8cojeqc8eh lmqpXiQxQOJxGIh3FFw4 ZSCezHhbDjUbQKT1YuN2 AIK3zAQgtX7ejOyb nyaneT9pGum+FGQ6rDYp fFZDVO0oKppfcFU+PHRk DOG9oBieFIryYPUwqZ1n TVOjO1d0PrEiOvN9 VGheV2MvuvF1RUTvpFRb CAVxkLDDgE1edrxvy6gj hjlcIhDkNJLmZHf7TOu8 LWFsaWduOiBsZWZ0 DvD9YGA5gTFpkW5feNoq fdsgfS8sQpr+QmlydGgg XAN8ZWm0X7TkTya3KDRc kRcjVI3nyCQsQPfk Re1lzEwckYfjZQ7oTADh sncbw792RbSvg1ylFGHh fKQuFQghQXT9Y65ie3W3 AUCaCGZsDNH2hPF3 cF5htXyygcvfsDWguPti baIynPibBMrwDEidD560 CVRagJznHtCkVUn5T7Qn Mjg9OZIgwRiyWV3r oKGoUYbtCe8giCojxEdz AO6iSBIounowm008LpUr m2veTOPshRVyOYapPRN9 U20yq9V2QKZrAZNg FWV2fRN5nR9lgZpmsteq bGVmdDsgdmVydGljYWwt JHscM013HCWbjJaoOlSa jDz8H9ItQpd5FPCd eXrvKB3azTNaAKfjJm7z xAzxgIehFX7rVQJexqua k231MuMwi5alKTClcLQe UXnnROQ1I83lw1J2 LJTrTQSgVWR9wKU7lF1p bGlnbjogbGVmdDsgdmVy rRscIPchFDrhW963NZJl cDsnPlBhdGllbnQg KMbtGWn9G2KpEkbvzBY+ AS79AQYeXJ71pFNcaEKe x7qunBr1PrBbDNDhOOB7 qUwxRLlnc2HyANCa J41qaXHwm0Q4TSNnyEnv sKIsPwUphSH1gI7hIQag imxyl2ulprhfXofyr4ze xk49xI86M15bLJpa ZHRoPSIzMCUiIHZhbGln wb6uhE2eId1+PGNvbCB3 lAB0mM4hTEXsMgA4KObd T091AgYaeOXgFkjs c8cgp3nquIz8TnG0DPWw nmWzkSrwYYJ1k1ErKk48 G13rGGsyTDPsVCCyBXHu YCMroEexzl2jaN6x Ii8+CMKybKA9cCL0tS6y WqOfXjC3CCakZ536JkYs dGKoUxizT21hX0FnxGZ+ ZWBzTuw6WNZvsAtu MR5qcNDdLVoxOl2qBKK4 UmTlOcLuARbbT6FlETNq caoxdysftVN4IJXcVVLx xR36Yn9tsKxdQQFy nZZKzE3uhhqgp0wjusbd BkScLMSrMTs9OVd7QBSf lMxrXyKaUGU2ZwB9SYX6 vCCowH3qhZdynisj iU8eG4WhCXPbxxzwVx38 cF8sFhYtVrG8RMuaAdr+ H5LRLzljCU4YP6yEYHyz SzwvdGQ+PHRkIHN0 dIgiZCayMHJvsJ9mBULo E2a1NeQkHgY2FHiqR7Ws EOWbxcddNj02qR6mNdGo RrF3WOloJ4SzklW3 HAPolGKkLZcnASZ1R17u y2I6XEMgNDPrQDW4kAT6 rI5euWnxvztszZIslRyf dmVydGljYWwtYWxp L320UTAcvMtzCgVeAhA3 FvW1RmB3R2KuPxp0DNLc rPffQF7laHBuKShvDh2g fXweiRieTA0tJFEt yitdXNHmbB2sOXCqjSFr xEndWQ1hQYGczfrna461 OeZmDUC9TWCgmEJzE7Ft qB9lGbYmMKBmCFXs W3RwpRNfZJwjV715IDue CuX6NTNobwBkP7OsTIBi fReoSgD5p7I5Lr73ZMGN ZWFyczwvdGQ+PHRk CZR6dObzPLxcWJIwcR6r RDEsS5e7IwTrCgG6GIfa H3SmKLTjwdbcKx85vZ4u JcUgWcN2DZmsZ5Ti wrR0YEOsuEXmIImsNTD9 D43qs2R3MKZyUTFcXIP1 hLI2eF2neKrhvxhhjRQq dDsgdmVydGljYWwt MSeeA438LZVefFhoCs3H GKJ3A8BaSdb5NVNmoQqc CI2otPNtAXbkZw4qbFiu gYvaBL9pVNMeexgg GELjeD9kZBXxvAScfOkg TW7oRTOilzbku914LgPz ERD8SGGvdRFmR5QrrV9l MgUzRDBnGGZuW9Tm dUKaCZtzL243FGdrVeG4 SUPoskXkE5CuUETfgDey UhO9p6K5Rk5UTPeamEW+ OW80fi29P4HuTepk Kbe0UHNjEJW1aVY9qJ1y QGIoAQiwz7C6rHW7V4Be viGhhn5it0tcTWXpXZpq J16sbEEma0U6OMVc cJT8QLJgnGdtDmOlkM41 Oyc+ESJqoTqeg3EjWawx h5tel0grwGs6EdEcLPKn bpVkuYzvMCK9v3We Wb92K24iIJzaWBNuFEEr WTBqCHKaiFsvjq0xkQ3a Ii8+FLUawNG4rSG3aI2e SoClIcM3YSiiX642 EkTzsQPkIwoce0uuy3rn rEl5PfFjJIMujyKdhRze GMO3o7LfQv80L9QhcCfe g0KxQhz5aq62qRPy m8G6pCG9C3VhTEFiyhum tPGojSqjJP9rQUUnhqpd XNXijL2fJPAvQ2i9SrVc QcP1BBddZ3DexxN7 AWPiwMYwZJOyoKWZeY0y bdgng7dcvcvuWrMuKYTs YWt4OHh3AVWroSmsUoLb GZO8OwG8PWK7xLWr sM5aiLppxdfouB2pKor+ QJn2m5ewgOJtPU4unQP7 KU95RV60oWHmz8N0nOV9 D1ClHDZrbpoddgkz uWS9FKQhZNFzlA67Dj5q pGacPc6wYLGaGGP1LZOr dWVyV8KccK5yMqIfIQYx RFVdB1ZstEPhZYus O928RLwjWgL5LLNnycVq E2WhMEIdbUmkLoP2p0Z7 Tw6IRD29MK73NE03uKTb e9H5zXQ0D9PmECNj udlcdqbknAZ4VAEaLDHr aJ01Pk9inIfoRc0jURIc VKC9YZVcxBQfE3IzbN7q LrZzKQKyZFLuC5Vv cTDjYMazB178YEsoApL7 DXNuucCeG5EmNFQbiOsg SxR2m0Q0Rx4QDk05MF95 SE47aMEvj4W5iIC5 F5ZpERZreqerwcjykPE8 VPFtSDLnhR86Hz8xiNyp Cm3cFOYkRLO9MFRsvBWg P3HblN8oEmLpFXXn XONaF6ZaoONnQAfnU657 OKxfSlU0GXLoryZtS1Ye SGHwsVpjGfB3t4Y5Pc6Z KSlgcbz9N9WcNscl dHI+ZG76AZFwOH43oWPk vPJza5luiKv1WjTsLADr SSG6aGvqPUexc2AbSDSg O05nzDWgn0C4UYQt bGx (more content not included)... [facility] Wound Care Noteon 08-12-2023 Wound Care Note [id number]# 1.00OTGTIFF [facility] Wound Care Noteon 08-05-2023 Wound Care Note [id number]#1. 00OTGTIFF [facility] Coding Summaryon 07-30-2023 Coding Summary HTMLBase 64 FmqnzmqcHPy1pXq+PGhl YWQ+PI0RETPcI77neGKf jA6nA5KUUGlECczwGXRQ ZNpFStHwkdEqDW3xmDXp ZXJu IC8+LE4kMCQdHmlafJJz v5H4dZE7B36vqh1dNKpx uVY3JMBkKjMrrobhh0eb tBt0XGecRkzePnFl NLVpnU22FAH9bU51Ff70 nVZqjAFdw5ryrWs8OzBu TQZkRUK9kWejMOibu8Or LHJaJ15jaVNzw6L3 IGNvbGxhcHNlOyBlbXB0 uM6aANoeipjkl6bjfpzu Iva0ws75dVKpo3O8lCJ4 O5JiwrG5ZQFveDRa TmgpoFTMlF1uhucoq6rj buybKrIvBWRtOHr1UTa7 URIpfUshUiFsOW79JUU1 YTNiuaOrJ5EqOWLj wLmtKoS2x1S1Wx1CX6JG ZqucD6PGKCIDXPexvQE+ MK83xe96D1RkKpyhNxu8 CIVoLQE3fNZ0uG1s NBBkMGxfo2U4hIB9Y0Vu ojQthj0zn3pqXZErOYsv B02raGWwr3F6VPZdtRD8 FGUdeIbaIrPsvA82 Oyc+GQQttKpma8ZyLzpt h5ksm4mfmIj0BvzpAGYq jrXrdJruOQX6l3MvYw3m OXQsiOE6nAA1vZ3f SiZqWcE9IPooK473NkWq eZJoDvujG08gT8BqwXO+ PHVbLhq5QOAjpJfvVM6d A3KrFAJtuitlvRWp rEcsVB2zMQWrcpjmNDRm rH6bFCKdU7w2HjHlWmJ6 YAxeH6DtTZTykbqiYb06 aE0mImCeDaQ7FCzz P6VxduZ8WMLnuPSlPQij WBS1Q63kb5H3QYMhFDTh UFB3qOK3hD1yxWldumsx bGVmdDsgdmVydGlj OFjbIKgzM059AZHvaJxp PkNvZGluZyBEYXRlOiAg MDMvMjYvMjAyNDwvdGQ+ PJHnTGK5tKniXDNl pCUjXJycFm7cjRaoaIce CM6sQOJlwiwqNCUbiJ0c FVWegLYtgCxlJJ1jFEPx fdbmf667TqDxHLB2 AKUrnWAfL2ZhmN9sOqAz VTTkMBRgR1WjdSLwRXlh X430SZkfTqN6TXZjwcNs G3PoVEQmwGafLkU5 p9Z6Ow6Nc0MxzmecX3Si rOJnRaEqMuuwNXt2G1Fm PjwvdHI+LG14MREhNX37 IJx0XGF5iBeqVAqf PVOkY8JtvB2bAxUeKXNx ZGRkOyc+PHRhYmxlIHdp ZHRoPScxMDAlJyBzdHls CT1kNh6rQQBkWWKx bLoycAAjPtYny4peVWYh JShsBK6tgBpfA7TyrBM5 LPZgz9d7Hx71N41tX7Sy dXA+LMUlgVW8yUW3 wH9uHrOyKmR5EVotS466 NqWbwLEdTgefr6lkm0jk sYu3JcF9ETZqbiTrmOla WUQ0t7HdKo83F02g IHdpZHRoPSIxNSUiIHZh jLywlf9lxP8lNa5+PGNv jRT7zQE6rZ9dMgGbLsI1 VYctE551BaCuxHLx Rasfy3vdy7jwkVp6SdTo AVGmwxBbvTbnJXD7h4Gt Rp80Y6PzeTctg1EwRfn8 fc65oSUqu7O2kUH1 G6ZjGAHlimrclJFucUmr BM5zGDUwlljvSDCzoR7d LMBzN8a4VrBjCvA5BQbu X6FdjxG4FSYrgKYn YKAgeHJHlU8pycmre9be beybKeJbSYJzZXd4OUu4 TQUbyGqcNbIbACI0XgS1 FXX8aZTlfV6waZkb sprivJ8uPjg+LCC8lAJr zNWCXW5sAgdlqUJ+PHRk ZDP5fPqhNLemZIYxpM0x LFGtO6i2DkWiMaC2 GLjaK9VvheZ9SMFtcZBq DECmxZPAxX5ahbmws0vk mvniVlQdQPBdJWq8KJf9 LWFsaWduOiBsZWZ0 NhG1OUK1eODjkB2spDzk tptbwU2yBko+QmlydGgg TMP1EZp3I6HgFyj8XKKq yTkbTO5fhKKpBGuz Ys2hbOgvjTscID7pRAAn dqgzn553GvEkn9knSXZi oWDfVPjaTDS1S08uk7C9 YBEvMRMlUUP6oOD1 yP6lpJwognsfoMXczAlh xhZkvDjbQLlsXRnsL323 WSEgnFoqFnPbMYr0Q5Iu Jfl8WXGjqBgzAO9k wAThLPvxGd0ubQvfjMnk SH4xHGKabiurs679WhHq e1aeLAMewYGpYXfaMKF8 U75nl1B1ALUqMXSg COC2pFQ0kD1tqUnehons bGVmdDsgdmVydGljYWwt SBhuT507MMVxcEzsQqJo rAs3J4SzSxt2XEHi oSnrKZ7suIBsIXwpMw2w bNcbyTpmUB3dNTVwbsnh z957ScSjw3pcJOQzfPXf MGptYDD6D91vp4N7 OHWtHMWgELF6zIP8qN5v bGlnbjogbGVmdDsgdmVy fTcnJZwaMUtdH174EEKu cDsnPlBhdGllbnQg TCppQHm8O2QlMxgwzPW+ ZL32AFWxDF01qVVzdDSr p0bvwDe5OfAaWXIvGDH1 qGwjWOodu8OiMSVh B77zkRWwd8F7EKKzbJbg sYEeAiTxqDK2aH3jGHmm ylgpy7obyorxFbybi3kj eq69oW32B91iQVrj ZHRoPSIzMCUiIHZhbGln wp8oaV1lAk6+PGNvbCB3 zLM1eW2jUEGxGcY4WDha G272KaLgyOUeYank x1yqd1qsrUs3OeP8SGFy lsNyuLnoHYY7p2VyZx05 T95jEKnlOTKpHELzWYHh FYAorJiqoc5svA2f Ii8+CUAozXT7tZI1hZ8s HoDsXnF5ZPkeN808QkHc pINiLcplL52iG6EzdZQ+ ZTRyXxo4YBMraEao FP7sjSFbYHgkVc7sZVW9 YlDrWaCuAQrjZ4LoUOJi bluvlngxrAE6XXDaVAVe sJ98Dp0tsKmtRQWj yNVUnU8hvuscl3akxrbq TkIyQCGlYMr9XMm1BDLe kKvsHpVxTTD4BvS6ZVM8 vTFvsM0byBzbejhz uD4lQ6PrBWLeqogqXi36 kM6aNbHhAxJ3BDrtUoo+ W8DBYtrfFB0FH8vZXSjg SzwvdGQ+PHRkIHN0 kYngIIkkGEWuqJ2rQXIz E7r4QhPoYaH9SQmmY5Fm MKYlvgbzKg55fQ0rQeBh SrX0RAslT9XiokA7 SLPndTRoFExbPAP7M97q u7J2XJJaBBVpHIG2uIL0 nQ6jvZoymcetaQAqhEco dmVydGljYWwtYWxp D523MORdfTqoDhCbGxY1 WbJ3GaS7W8IrNuu9LQKs dBzfGQ0vrKQqRUjbRq5r rWbrbOhyMJ4xBXPn vtkrRYPtzF9bQNYtlUPf kIqyHT7gXNMqmfbsu251 TtNgWTY1JPCimBOtS2Ii dW5hEwYrKREmJZBi N1HxsOIlMLpbN269AKlq GpL6ZIWncgNpR1MhHECe cCfqJqG6j3L3Xw18BOBJ ZWFyczwvdGQ+PHRk SMS7mEizXZxpRXVimR8d FCYlQ2x2BfCcXbC9AXaa X2FfUHRirmodAg32zG0u EjXdYcE6XVmlA8Sr hvU3LKWdkBWtYUygUSC5 I57ex0O5JAFjJKOtIBC0 hDI7wD2coDkuknvwqUGw dDsgdmVydGljYWwt QJmzN983AXImtSawNc5Q XAB1P7MgTpi0TBTojEgc AI5vnVUpCJoaMn1arUcb gUxqYB1bGSTndltb FXVvzZ5lQNAahHMkvAnc WU5uEJQhpvfge442JxPd LCB6GIHdcPChH1WpvD8d RcIgPFArHEHiN7Qi sBRbSKbnX791HXapAsV2 YEMwgwXaQ8LtUNSksCsq StC4p4H4Da5KFFoiwBF+ CQ40ts26M4ImPnhx Zyj0AFJeYNN3aFY5hY4s XHRtYUcvy9Z6hVU4E7Gb scPjvk1or8jiXJMoFXkx V53gsCAav5H7GKUd eUU5CPWlwDoiXcBmpP71 Oyc+IJLkbMfnq6SdEeaj d0auw8jguAj1XsCuKSGs wmFsnPoxTDE9m0Tn Sp85N99qEHqmGCReRGOq SWDcESZmtGvpkz2kbM3j Ii8+BCOmeIS1mOY6xQ5d MzOePdA5MTdaX370 NlTmyTLxYfakt4pnb5az fKw1WvBgREVsbhRyxFei YMB3d9KyCz94E9RbgEcv o3PaYul5td52fDEt x8D4yLF0O4SnEDZjkows sONpxSjwVE5eOLRulydt BHXsqM8oJFDxB5n7SzBk PzP4KPufO6GjecF5 WDAceGSxKGWuoLJYiI4d bjadt4eaemaaLpIgISXc UPj3SFp5MZQjtTkiDfBu JPF8BlT9AYH2eLXx mB6jgCrnwpjquF3vSad+ YVg5r2phrQSjSG2meVO8 RD02ZZ13iZGts6G7gCT5 E5UhPDXogmxoiyzn fGC6PNRpDQSpdU26Fv1a lHqbPl1mQARwTQK8FHHn wOKbK9QkkC8dOoOxGOTc HTAaN4JnzCBuHCct Q248RGrwJjA6MKXlgnYg E8QrNHJpzKrmJwL8n5W7 Ok1RFI94ZZ55NJ66gTHv d9K7dIE3T2ZgKPEa jgcnhdxdoYE3WDJlPMEt nR42Co2axYjdUm4cBAKy MMX2GAIjqVAvV9AlnV1d YnHuZRKlCMHdZ8Xr jGQgABvwS869RUcoIjI0 XCAeimTjB4TrYSFfdFbd McY3x5O2Zf5KXd07HO89 EL03nFYxc8S0lKY9 H5VlSCJpnllppuqzrHQ3 TKNhRNYrdP58Hl4ofAna Lf7bVIBpFEJ7PUNryCLr H3YxsA9pGeHyKXIv SIAeH9MxaPApUAheH311 WWlgWgR8HNFurbQaU5Hj SFGlsIjmTrI0v2M7Rw9X TLsbjtt5Z4VfWpfx dHI+UY43QGLuTN98uUOm kPWbw8udfXg2AkXpBLJz YUF7gNqiHVxrd3HiSSMs K21cyYFoi2V5XRCy bGx (more content not included)... [facility] Coding Summary HTMLBase 64 AhgdrvtkCDp0nQj+PGhl YWQ+HC1MQEJuT40bvBNy lJ9kZ3KVTIqDMilmDOWB YEaMZcHwmeEmIY2rhIHv ZXJu IC8+WF4sGGImNifhrPPg f9A1kNK3Q95nwk0vVCav lCC2KNFuMmTbmdjea2zk iGo9XGffCbloPaYr VAMlrJ03MBP7dM50Lo20 iKEtgLLlq7tndUs8TvRj KWDqZDK5uFfqVGzep6Fg URSaB32gfTVri9O7 IGNvbGxhcHNlOyBlbXB0 aT5vYCtmasurn8pwibxb Vjc1zp47nGPyk7S8tYK5 Z1LrzwM8HYLxmNUg QncbmRCUbX9qvftzd8gv uprwYePiYTOpHUf1ADu1 REUquFntTgGpBO44CWA6 UVLayaDyQ9LyNDHx uVmgHzZ7x9G1Rg4QW2FP BevgW3NFZHDTBJvovZS+ YF77zv92H7RgPwhyTme3 ACYcYQV6iCT1iB0w RJTiJBvtn8L2pKU2X5Rb tnImlz3np0snZUIqVXau W20kmTXmy4V9MTFfmAT4 OOMnpZxfZwZoiZ15 Oyc+CYHtyXteh3OkLuze f6ikh2xyvTi8BpdyVHLl vqCooPblQSW5x5GbXh1u ZGAwpCM2fOD6hZ9h HjHhJtH4FZuiA423OlXl gZNjSnapE49mY3LodII+ GFUxVya7KUMauIsrNB0e A7ThJHHsaeylyIFk lLwyYY8cEMFmjiyvMITk nP2oWXZaV0l6QgChKpO5 VUubH4FoFLUtnfgqUb61 zL8cAaSsLvX7RSie Y0WqelY0PEEjvGToFXuw IWC9N69ar6L7JMIlKRAv EXD8lEN3nR5fgCylynhg bGVmdDsgdmVydGlj DUurUPedQ151WGAsbNqg PkNvZGluZyBEYXRlOiAg MDMvMjYvMjAyNDwvdGQ+ BFOcUYB3kAwsSGWy yNJsFHpeOm1rrKrcbIih WO9uYWTifbcnNIIgbD8z VBBrlDZpcLgkMH5tCDJb kafty633IvZoDJS9 VRMbzFBzB6AngL0jOnTb UDCrNUTqO0RtbGZeDIrw Q996BAwoJkY0NWKayfGe K8VfTUAwhOtlXuY7 x3G2El6Qa2YglhauE3Ke vWUtCjCcAcneYMt2L6Ap PjwvdHI+ZY80BCVwLW37 ROj8HJO2cKqrYRco FPBoO8PkcP2eEhCnASCx ZGRkOyc+PHRhYmxlIHdp ZHRoPScxMDAlJyBzdHls RZ7oMj2vYURkRJVy wGbueLFbOmAzu8ysEDWh ZFazAR9ckPhoS2DqmTK3 JFFzt0i0Vs96Y24wZ8Zk dXA+UIWwjKY2fJV0 jB2tXyBaFvT2ODxxZ112 BbBltWYzUxbxn0wya9ku bPo8GrX2ACEucgLrcXqy NSY5m9OhIo81M56q IHdpZHRoPSIxNSUiIHZh gYzlfe0hnU1eYb9+PGNv sCW6zLV7xM3vJjJhEpX7 PPsoW308GhXlvSPw Hmckd8obx3uvrHi2NxOo PPVnzrQxiXfoHLH8j1Fg Ae25A8RwcIepv2VvAuf1 er95vFXjg6U4dEJ8 V2RcNMHkmrvywSVqmVva AD0mEALopflhMHQweC4d WMNdY9b6OkUhNtQ1GQpl Z6OebbS7PYJtkCIr XEBbyYPIxG8gprhdy9bs wjgnSwKjQSRjSYx6NHw2 UOEvkZjgEdLuITB5WiC4 ZOQ9zYRgsW2yiQoq rdqkfI3jAtk+ASQ7lAMx fDVHTZ1jJtyimIL+PHRk LNS8bAxwHIkzXAZpsK4d AESaE0k6ShPmScO2 ULmvY6YoxdZ0EPRjdLKv JIUzdRUNrB7zrawda2lc gmxdZeGsNSPaMSc3AZz3 LWFsaWduOiBsZWZ0 OjE4KEW3zPFufF6qpBbv nfptrZ3pYnx+QmlydGgg QRC6VSi1E7KrEoz7TOTu lPvpRV1siXRrQOig Th1cjSkotAycVM5kDZTa bkwwt516UhYyz3tvEIIy rVJxUFopOST4X47av1Q6 PFKdDQYlHWT9rOK0 lH0lbMvymhnaaQZkzVke fbRlzAjwVDwsFSpoC280 QDPscPcoQiEsSEb9T9Zq Kla0ZJUvzGmkVE8a oVSgMIcvUt3biJyozFbl LT9vIPNzkctam418UpQx a6shRMIptLHeMScjDTF2 P07zc8S8LJBaRPJh YYK8jIX5eI2fcGvntrei bGVmdDsgdmVydGljYWwt IIefW295CVUlpOpcEpVt jHo0P5TkIcu4GIWc dBgsMG8kgRRmAWgkKh4i kQtkqZgcTO9oEIYnwbfl x395YpYqv8cfZCOrdWUj XNaaQAW4G74rt8O9 IJYfHPYuBUA4yLU5rF9w bGlnbjogbGVmdDsgdmVy rJwhSIcqUHbpO312HBVs cDsnPlBhdGllbnQg SHqmTQm2W8WjGvqnfZZ+ YG38FMXyNK48aRBdyUBu j4insGi2PyFhFZNbNVV3 yLaoQTjwx4DfGTUk K72coWAej1O7HSCybObj sJXxCfMrhIL9uA2wPNac xzpti0bqzogqYolnx7tg zs68nX61Y79rJYmi ZHRoPSIzMCUiIHZhbGln gp4mbP0qDn3+PGNvbCB3 rSB6qV2tDZLwOnY0IVpv O700MbHjbFXsZxbr r5djd0fkwPv1MfS0TSZm roPlcPfcRRG0s8VeVi84 G25wOBumHPFgIVXfBGQa JRUzjNflhe4euY2h Ii8+FODerCQ4mPH5tZ8u TdEkGnM8YLhsN005YxMk mHDlGmcfO35zC4DksDU+ LIMnQdm7LIXqbPzw SM6azXIcCHzzDa8jRBT8 JaPzClUwISpgC7XrQUWx pdcvhnsojIY8GOJjVQAz sJ49Dd8hrCagYXIq oJDWnS8hmdykv8nqjfnb VxFiBJTbASn4PVd0IHWz zOzuMfFjIJD2VvO4KXU3 eXEryE0nxNjuaiwp eO3zZ2PaEEBnnunvEc92 fU3wGvElVeP3PCwgVum+ J4UCLrerSB6LW3aKAUjs SzwvdGQ+PHRkIHN0 uAubFExeGXKyjD0vRUWr U7p0ViGvXnE7LHsdT4Ep UQMuckroPi64vM1fIwKo WsT3NRkfV7OqziF8 NUGsnJWhTJhcKFO4T51d s9Y6YLFaIHLlWDG2xCC2 rD8iuCnxlsvopKVldXww dmVydGljYWwtYWxp W259MFMrkYbmJxUyIoY5 MtA3HfG5D1FwNhq4CCYw fHhrLW1zsPMiQFhlOy1a xHxlcPmrRL1cNXZq ibavLJAkqK4gXWTnvMPb bSonCC8iJHHhnjknh733 XgQaZBR2XJSccJAdZ0Fy nR7aJiVyAQBiYRDf G7SkvBIhAKsmM147DWmw HnV8RZMwruCxZ9LqGYIr nKpkIsD3b3L2Yj65LWBH ZWFyczwvdGQ+PHRk LYM8tNjjEXnfXFWvpW9v PAOgQ6a8ZlIpSvZ5SKwc R5RuDVAgjxnxAk06wE4x HbUxQuD7GYleD0Jl yeB1EFUhhNQvAIorPCD5 I66ur0F4GQVtYWSfZEU0 wDU9rY8zcEuvbdyvwIKw dDsgdmVydGljYWwt DFkvT568WPSoyNwvCl2K IJE0S6WjKnb7QUOglFav PV0djLJmFAluRs9njAzx zDchHO2mIPJfyzqh VYZsdN2vGSJiuXHmkXus GP9oMMUysapgm580OjNw TYX2ZUXtoBLuO2KvwK7b QhRmJXPoPOUaX3Ok xZRzKWnoA759GNidAaZ3 VGGkbjYsE4NoJSAwdCyc BwR1q6Q2Fa0EHMwurOG+ GG72bv64O7VvRjjq Sam0DUGnXEG9oQE3mD3a ZCGzECpof7E2wJC7C0Lp fbPvkw5yg9yyXSEzLNls B17dmIOwm0D9HCSc zPQ4WPQueAsmPxDiiP67 Oyc+JCTrrDdyx7CzWzjp h6obv5omwCh2UuFrFNOe ooDvqWcqSLG8z0Kt Po89H62hTZlsRVTuCDGa SOFwBEKmrRqpat7wcJ0h Ii8+RPFmmZY1wQJ8wR3w BlMzGzI4FKruU235 HzMqrPFpEuhoj3mfr9ez jNi7EmQwIKQekyDzkKqo THB8w5IyHj49T2ZflJsg c8GdWfo7yd78kGGn g4Z0iNT1P5KlPXKzjezc rQHwuYioQL0hRKNwhjfr XNIyzF5bVRHzT9k6RkXm VfT0AHfhV3QglxG4 TATpkWQbTMJfoZGHbA5m tzvan8vvsdpuRoYqEGGq XJp7ACi1XCTddKdiLqIp YDI1AeU3XBG9eRBq lJ7tzZuvxltgjJ7yIkt+ NHx7b7xyzXPtFT6fdBP3 CR94DZ61rDCbg2T0lGG3 U2EjAGAuejunnbyi jOY2GVRtIEUbjR37We3y tXnyKi1aAVZqKUJ3IZXj tRAjD3UmsF0yNbGmDOPa UJGgA7TcvSAeWStk E807EHfsScL3JXAuzdSs Y2LtRXTeyVmaPiN1d4U4 Fx2PVU72WO04NN53tQRd o2V3qYV6Q2ItOEXo pixqeamfyOH9RQElQPDc aY03Ek5huHlvDe0zXTKw CRA5AZAsfCPzO0NqbD5u JbOlMOLtQJTeF5Re aBQoRNfmO675AZbeFpN1 DUIriqTvY1EgUTNrkSxi NjA7f0B5Ki0ZMs36FU38 TF11qJQsb2D3gJM3 V0SxDWIoriyffgajsQG0 YRZgHERuhH22Ut1yyJed Bf4uTMLtVAU3SRWkzKDf C7PzlP7bJkIwRWIg OUAaS7ObsZKvNRjzW074 PAnlGtL5HAVvctGiG8Sm YZQjhEnjWjF8r7X7Eh3E YJedaka7O9KrOpam dHI+VY13OSBrIV85mXUk kWMkw0drkBo6ApJtEFLd DTR6qTpwKDprg3JkWCVw L89cdROek3N5UAZp bGx (more content not included)... [facility] Coding Summaryon 07-29-2023 Coding Summary HTMLBase 64 ExjyfknsJTq4jHo+PGhl YWQ+JI6XYSWuC29lrJCx qM3sI9MXFRtRWrdoLIVF VAvAAgSvplPwUR5ymHFe ZXJu IC8+QR8jOREoBvrjvHWv p2A1aCQ7H10xmu1iZGov wLP6WXHvYnAckjsat3zt eBq5RXbpLyvjJoIi MTRywP98IEW6mS84Me90 eSHlePInf7snqRw8JiKu GBNnPBY9yHhgKZslf6Ld JGGqY34vhXGtf9O8 IGNvbGxhcHNlOyBlbXB0 oG6tLVrdgvhkb4utfirl Pho3ya47dPXjl1W6zZJ0 C0RrbsV6KSBbiORk MwftkBIFgP8tnsztk7lz ntpiKgIhOYLrJAv4IZh9 ZXQgrGajBxByAC65CVW0 QPBabvPgH2DtYFQv mDfvNcJ5f7C4Ux0HG7SK SwmqM2HUQQYPXWdkbCR+ SO79lp94H4XaCqflHss5 UZQuRNC0vRD5iW0v KBPvXLuzc4B0iOR8D1Jz vcXofp8no0bmTQBzSMaz G21jyEJeu6T7MMIzqXU9 EULzoAnbDlXjyG47 Oyc+LUSixNkxc9MoRnoa p8kdy7hovBv6KjclGHCz fwVgyOaxWJH7b7XoYh4l ZSSsnPS9sKR3nE6c MsQcLmN2OGdoG223IgYn cMOcWgjjW38tV6IqnMR+ YBCaUvf4EQUxtIrlRH3r W6EpANQrvkympNDo zWwySG3dWGCmjxxlJTVi bJ8sXOKuH5a1ElZwItG7 MFyeC0DzAKJrrulxEb23 qE7rCkVbZuK7TCio F4SlslJ9PNGzuPRvWCjr IXW1X89mn3L7KIFfSSSv USB8sPY5jA5csQmcblzs bGVmdDsgdmVydGlj CHycQEbzC280AXIasNtx PkNvZGluZyBEYXRlOiAg MDMvMjUvMjAyNDwvdGQ+ UTHdCRI9dCcyVITv cNWgANupCv6xgYbhnGyk IT2hDRVihbzzBDRudO5w MXEnzOFkiIjcSR3sXYHb wbouh063GnXhXOE2 ACNqwJNlA5AufT9eJxPg DQQpDFWhC3LtmAKbQRuc L926XVliMjF7EBBoeaDk W4DqDQVamNrsPjX7 u6O0Qx5Gq4WrxiahI0Mh qRPmBeXlKdozKCf3G6Vn PjwvdHI+SB02EESfZQ98 KQz4YRB1tLuxPIsf WLNyN4OpaD0hIlAkIDZu ZGRkOyc+PHRhYmxlIHdp ZHRoPScxMDAlJyBzdHls PM2gAs0xZERpCJCk lMcayPJaUwApc4qoYDSy SZhxJM6msEbcC6RxqYR8 YZFet2c0Gp94P59zV1Fo dXA+VCIrgAL1hRQ9 sE6tZcYjLvX5FGxsG054 YhGdzQXmAhckr9ljk1du sOo4GuV1SPOrjtZozOlu CVM2b5WmBp05D54i IHdpZHRoPSIxNSUiIHZh sTtfff5whR5eLu1+PGNv oNC2bZW4aI7gQvCfEaA2 ZVmqE321OzPwuXRf Wclrb2tfj7wftPd5JjVy AQLmsqTmiQqiLLJ1d4Gx Ot50Z1GayTizt6IvPaf8 tl97mLYro6Z4yNV0 F3IaUJYytewxzVBadOuc FF9yGDUopalfUPTqkR8n PGInH6d3PsAkMxX7VOsn P9WucpI0EDVtfIYl RTMmlTTLdD0btqrwk0bq gulfFzHuBDTiTOi7EKn3 FUBmaEpqHzEzWPK8CnK8 YNS9wKFjhV5xlVcw ddwyeT4hLqm+ENQ8yIYu vOUGNS3pVrehhWT+PHRk CFT4fCdiVHptAOMndP5v PMHfD4b2ErIsMjL9 FPrfO7PbllZ8RRMlqRKu UBOxsZEHoF7xmadmi8et ppezBoCeUACyUUi1NKa1 LWFsaWduOiBsZWZ0 XuL0KWX3nEVsrE5ysJop bjwwrO3vDgs+QmlydGgg MBK8VVb1G8CyUxo5EMAi kJvcOS4lnTIpIAbh Vn7hmDitgYrgWX0jCYUm vbuny879IuJvd6bdGDOk hPEfWMtuIBO3R60tc9H6 SKGwGHTrFYF5qWF5 cX9suQdyxwwiaQVlkBkz dwRreOzxPLlyRXetA889 WWMnjAtlScMrFIn7L0Xt Vav0ZOWvxLfcIR0u iXLcDBgeGo3zrJkluFye KW6gMCVqnqnbi346XcTe h5tgLHKltYFzYAadNMF8 S79ir5N2DUTeOKSb BCS5yJP1rU5dgRzmdyyw bGVmdDsgdmVydGljYWwt CWwsP256RWMaaFfbShRz sOz4R5XeYme3PBFp eKcpPN9nuPJyJUpvMq2x fTwvzBnkTG8zHRLqwqjl m763PlBdc5xuWXTolAHw XXumXOE4F21pg6I5 BEHfSWCjJTC1bZN4qY8z bGlnbjogbGVmdDsgdmVy xRudFTloXTgsM674FEYk cDsnPlBhdGllbnQg ILcxRSw2S0CdQozsaJH+ XT28XUIdQH14iBAqiHEd u4gdlWw9CnJjNHXsPJN1 vOiyNUxcb5BkDRKr J21qxMEvv8R8JHGfuDgv dQRaAaItnUN9hU4wLLlf qgcqj9swrrzpRveij3pr gw10dD06Z83jBIjh ZHRoPSIzMCUiIHZhbGln ec8tuT5xHs1+PGNvbCB3 pSN5uK0vAQDfJsN1YYvc Q393TfYvvRQyZfvs o0fag6sawDn5DrN5JNXg znZniOpeMZZ6d5IcZq78 D22pRVvlLQCbDKCbHOEr GLZshKznqq7qjM8h Ii8+KKKszLZ9bGQ4hE3g KzReJqG7BYkzS845WzWt yGGiIbubG13hQ4EpyPK+ MVEqNif2WQDblCzk XI3knYTcDKpfPy9zOSN6 CiDjLrOeEUajX9KxYQMu cunbdvxyvQT0OUWgJTUa eT64Go8iaZieRRJj pRQJrJ4ogskqd4nnzgmh CfLaBDYaTQi8UUs4EWEp lEbnBkTlLNE8CqT6JHW0 sUYlmW2fsQaasnvn yF0rL6EaPTCkagmuDm88 pX7cZrFvJnP2YEjwPkc+ M4ZWWhpoZC0YJ0sQQJab SzwvdGQ+PHRkIHN0 vJsfCXjzOZDoqN3bUJZf S9n7DgAtKgP5RAuwF0Gc RMRrkyvjDv83yM1qWbKs JzP5NVowY4RclgQ8 RIUgyGRuZYbyOCZ7O05k r9G0VXHkRLRhSDB0vKX0 qE9qgAyoqyaveVWgbTos dmVydGljYWwtYWxp T035RDIrbKihJpYvSzS0 DyA5UqS1E6JjYwm9GUCq eDpeIL6ghLWmEVroFr0i eLytvEwsVO4bRURy uxlnCWZboR4sRMZguRCq kZfhPY6rZTLtizlmv102 VrVaXIH2UREeuSDaZ4Mw zJ6uUrQgFMNrXHFj P4VprNBqZTogA470DAct QgE8SZPsluQmZ8EsNCGk yDdrCfI0w9D8Hq79FIOR ZWFyczwvdGQ+PHRk ANR3nTxvZAqaUZFgbL0e JZQvW1a3QuSgPsB2PGnj I7UlNWEgrertKt29fG7i HuSjGbA2IQhgC9Dj bhY6GIDvjTUsDGssOWS4 S14mm4I0PXJmMPZsVHX5 bVJ3gA5asKpssmelmOUv dDsgdmVydGljYWwt ZLmfD681VMOqdCaoXm5J IER7Y3CpHtr9DHPllBhl PI7piOHyESdnFy3uvYls sXzjMQ3bRXObeydj IGFpvQ1gLZQvaLEpyGev MQ5jGGCndmvan787PmEh ZVX6COGoxHMfW0QwhW1u RwHgXXAhNSYaL7Hi kTBtQZdaL354AOurYtM4 MDDkoyZvA6YjCWBcmNqp PiP1f0C9Vn3LHKzrmWQ+ LZ34wj90V8LxYjuk Sym3HTBxAFE2nYJ8nD4d IHAzNAjka7H4sZH1N0Fo pzNrtr0tx2owAUPtKLks K74zwIQyc7N2FWKj kMW1JLLnwHuaRzMglU42 Oyc+VYYxzRwrw7GxParq x0vvh8inlPj6MdFzVJKn qySbtXjhXBZ5m7Lu Jp66Y43vZKmaIWGwSDLp ACFyWHUocCyres1rdD4a Ii8+OULwuSN2bPR0bF6v XfWtGzO2PNtvL288 IdSniUVjNomdl8oqn5yp bFj4DrYfPOSxxvHgpWva OTG4d1SvSt18R9PktHde h0ZxLpq6pw81sCCz c9X6uYV7R5LtPXMnxhul nYHdgHkbYY2dVEZmmxyb TNZlwX4aVRCfZ2g6MrJl OcA6HIjbS7NgklI8 TZIceMYbUPIdmJDCiU9d vykwt5majngqLcSvYZZu ETh5NCm7EKNqgDjlJuVg ARL8XfS0XYZ2mKOg aC5ueZtwcvabfS9zMgl+ UZi7q7iyzPPhGI4fhQG7 BS11WL50jDIjj0C9yCV1 G3LvSXMbgauauqim iBT6AYQhWVPjtW05Ei5t fAhcTc1hGDPpXSX6LPIk xABxL4EurA6iFzIlLMTn XDBgC2JpsZOiOEwl F512QZnpKhP9PLQdwiEc F6PiYXXmkTzdNvM3s1D7 Wg7LRK66TR45NZ59zDSi g7D0sGJ5W2EgPXWb rwtorijsqXX1BIEtGFDi yJ84Ol8iuFmpXa8sXUHx BKC2GETnqXCiW7GxxP1a AcNtUFSkVMNeI8St cBMrWGdjI557LUleRoP6 JWEmasVyL7AvPYPcmNcw FkY9g4C8Ge7PDs44QU09 ZO40pMNhb1V9wRI4 K7IaORPhrribtanmnLT7 OLYyPMKehX63El2xaQaz Lg4rDOFuZKC7WHHshHCe P5WufO6fBaNrKZCe SSUvG7JesXUoOHjtJ681 DRbkSlU6XLTewgFvB8Ci KSMoaVhzUrX9l0K8Bx2U DBenjpj1F1DlOftq dHI+SS98KOUnPJ14nKCu nXAsy0rrrRs7JjIaFBAm HQU5aFzzFGydv2WnYTNe S75gpNOkq4U5RFTz bGx (more content not included)... [facility] Coding Summary HTMLBase 64 LhoycvyhJZj0mQn+PGhl YWQ+ZU0ECBFvX66wnUXz yN1mL5QCDJoNKlpqQMLF RMpRGhMnceHqRJ4hyQRf ZXJu IC8+QL8ePZDbRsybuQAp k4S1lCD1L40dcn9hBMus iIQ8VXKkWoDvtrmfa7lo jKd5LGsnNpnoGjNm EQToeV71CUR4xK83Kd42 yIEyaLTcm3nzoTm4VaPm XWSyMHX4qQvyHUyqo1Qm YDJjJ86pyXWco9V7 IGNvbGxhcHNlOyBlbXB0 wQ7uICsduzejc3whjvjl Ptw2pv56oYReq6P5jFQ8 A0RjryO7VGFahICq AydkjNLNpP7cytnlw1md zqnjOcZpIXOgHXm3EZb7 NYHdpMjnQaOyYA44USA7 LJUwkhPcL7OtLLZj oFpkUiH8s8B9He8KX0MG UvjuI3XCDYYZSXuqyED+ EW54yo88U9MuBvslQxe5 MELtXDW2uKU3bE7b SPIwHQozc3M8uRJ7V7Sr wpXvko5rp6hnFNMnSApm Z41znSVyt2J4VXVaiSU0 ADBprViwKfKjpC30 Oyc+ANInpFvvj8XvNwne a7ows9oeoZw9JgjxXGVl hqGnjNpyLWD1t8GkQv1w ILZckBE3xVP1iS0q OyNuNnW6NIytI383FmFv fGCcEhoiP36fZ1SxfPC+ NZJqJsq9HGPnjNvqMB0e F7JcZRWiezuxyZFg hVwpFU4qUHSpwxduXEJz kC1vKGSsL5p2RwUjNcW7 WPuvE5HeSXJvzgigMh43 qP3zTpMdEpU9PFwp O4FwupR4LHBssNAwUAok ITM7L99ci2T5TQJxPZTc EWR6nFU8fO9laVxbvsel bGVmdDsgdmVydGlj VIiyNTorQ944QKLrkGvr PkNvZGluZyBEYXRlOiAg MDMvMjUvMjAyNDwvdGQ+ OJOhHPP5bSjdFFLy gYAwHTlgRf2trWsxiPgc QI8mFTFkxbixJPJtfX7w YKDquGFtgOqdWM4hTVLk xvvzw173NkRjAQS4 TZYtlAIvN2PheZ6hZxOn BMRrHWQlM0YwxUVeFNvk N921LZtcMjY1POJhsnRi U2MoKTLthZcnVrP9 n8N5Qg5Ze9DmsqwtD9Ys iEMbCtUkNbfcVAw9B9Hf PjwvdHI+SZ36JMIeAH23 YTs4ROH0eLvsJCjs GTPgQ9RdeH2yApAmCNWb ZGRkOyc+PHRhYmxlIHdp ZHRoPScxMDAlJyBzdHls AQ5pJg8aLCVvHAJo mPwyaSLkEoGly3qaHCKt QBudME6viBvbQ2GozGF6 MJZse9l6Fc72L76jM5Wm dXA+UTIkzNI4fHU0 sF9mUoEwJgB9VUgeF560 OcZkoUTuOcivl9chi8bn lVt8VrC6SVJqsuYonWlm OYM3a8QmPk29A20s IHdpZHRoPSIxNSUiIHZh hIykoq1isV8xNf7+PGNv aYX8yJP6hP8aGiIiCaL9 GCigE701DpDgfACy Vkjbp0wyf5ulhMb4SfJb CZMvppXliXnkAFI6n3Lk Js18C7ZwbLwco2ZiPfx5 db73fSRcl3A1tEK8 Z6YnUHPvtvjvzHHrzAod CK5rOBTcttpaFUVxlK8r KEJpU7b5NeNwYmL7LQlu X3DtudW5CIFhtHSo EJLofDIPyA8snhpsj6bq nirjJbReKYZbAKa8PGh6 FWXbuQqgRoLeHZW7NaH2 YPS2hWLguH7srWmn qikfeP6tCmx+WJG6kOWp mYEHKU4iAcburXU+PHRk PPF0eJjgQBpyZWHmoH3x EWBrF3m7SxDbOcL5 QVjsJ5VcvoN9VUNdxCZj ZQGnjRVKbK6mlyajw0om ssohUtFuOGCpYFu7QYx7 LWFsaWduOiBsZWZ0 QxE2MLR9vPKbnS9dwEse dhctuL7cYfk+QmlydGgg PYP0RUt3D4LmNln9ZCCe pCkvVO0ccEOyJIxt Es2tlRslcEovRJ2zSATf bfqgj870YjVol7awYNIu cQCnULgoUKK4G64sz6Z7 TXAbWUAnHRH0sYD8 tS2lpQtqzdewhSUwyElw jxVvhPteBQgvOBtqU581 ULAcyEdlMcVmRHm4P8Jc Def7PWVwnNgdAF3l bSZeOFuwVl3imWgfcIfo TQ7cMQCviawdm380EhJd d1cqNKWvjZInOGgaNSS2 J17xg5J3QDOrECTt GVZ1uZW7bZ0tbOgbispi bGVmdDsgdmVydGljYWwt WHacR278OLJvuVvjMaBb zSp1K0JyRtc4TFVi mQddCN2vgAHpQWobQz4n jZkneVjoXO8pHNHrnmhj y920UmUsx3qmBVFdbDXd YTtrRIJ3P96bi6Z6 JFXlGVFwQJG9hGZ5qB1m bGlnbjogbGVmdDsgdmVy cPwtBFvgJEoeV829LVBp cDsnPlBhdGllbnQg PHmmAHs6S9LeUktjiJO+ KW39IJPbJA75rMKayKIo v5jrkBg8GrCrQMYfOXO6 dCamRHnyy4PiSQMp V38uuBXny9U7CTJbxNcp aIOgRgJkrLI4xS1uOBci mezfq9zcipsfFpphi9bp bk24qS37M38xGMgr ZHRoPSIzMCUiIHZhbGln wq9gzY4sMa8+PGNvbCB3 dLQ1hS2jYVEbEzQ6EFmv V693BmXdkLPjDhzi h8pft5qivSp3HrR1HPYv ixAjlIylXPQ9w4CiVo86 P27yJRjjIJWzCQRjUXVp CPMawKiuad7dpW6i Ii8+WAMfeTJ8yVG5sY7a WkBpUzD0GEvlQ057QqDv jXBtXkeiK04kH6BneRC+ BNRqGkv6LKIvjFrh TT3boVYsEXyeIl2bRBR5 AzSqJjEvOXubG8XrGTYr sxspnwpkcVV8RQTwPULm wB74If8oyOtzCNNd cHJCjB4jhtylh0kulskc GpNqSXXbMXh5BUg4EDPn aVjwBlLrQTP7WgX8LVA0 rPWywY2ksSaffuou yY9sQ1GpIORsbcquGr39 zB3gCeUcKvJ5BYufXrp+ L4HMGmbuZO1RO6cBPVhx SzwvdGQ+PHRkIHN0 vUedTUsoCKEieN3xKOHa O9a1FaBlUxV0OKtdP1Zl HOMzzydeMa96oJ5mSlLs ZxD3ASiuD3IjfzZ3 OMHfaMMlNTppGHV2Z23u y5Y0WLRkWJFwQRY4wUK8 aN5etPkzlttytCOleFly dmVydGljYWwtYWxp T076DGTbjNjiVsWwLcN6 AzY9IcQ3H5RvLgq8AIBe oUmxVD6klUBhIOloMv9g mAelxBdhGA2dFTIj qgoyXAJbrF0cRANxkMTa iJzuIJ6qUNWtruppu851 ZwDePLZ6QXZnyLIgA8Fw hP9cVgHeZFQyLGNt T4CgxSPuXPfqQ636FOvb AlO9MFWvrmSvM5XtCFBr vJquFwV9g4X8Qt00YIRF ZWFyczwvdGQ+PHRk KZM7sSnzMQpzRDKanU5m UZMsC0h4TiLzTzR0WGal J1JyZCOkpfcyOy95zJ0n DlMeSmG0IFwuY3Jh khI9GHYxzPXzEPtaDXQ4 C05oq3U3ILTnJILxMPM7 gFQ1vI7ziTcbpoeweOUj dDsgdmVydGljYWwt GWqmG525HSOptWmwEe8M JUT1M3AsVyb2MULamQrl EB9goMFpVZyuQp1zyGcm kVziUX9nWRZcodcl KAPapO8cEPMqpAXrgXxi MR7cSBMucrohs448ZqMc BIK2ZLYbkGYzI2XogJ8t LsVhQMMcAGZjA7Hm bNBiXLljI212ODmgJwE8 XAZdpjFaR9XwEBGrsKic KqB7t7B3Ei0LNQgonCC+ HV87or16Y2YxMllw Nah5GOUpKFW4nXM4fK4m HDGvHUdsy6M6yJZ5Q6Ht lsVkdf0xb7toMCGtMDds P47ybJOyy7I1LUJg qND4OJNujNkiNhVghT59 Oyc+TWYnoSqdk1StChze q4zpe3sxpUg0ZeAlWBOi wnDflMcoHVJ7t8Mo Pq93K70lAPkzQQYzJGQz EBUuPMFuqKooir2ulU8o Ii8+ZKSfgTN0vAQ5qX9d VlDxIkI0UYywN727 PsNtmLGrJavpv8dpk9jg eSx9WwHvUEOrwmNyyQqh LKH8i7TcXc06K5FopWdi o8OvUdm9sw51jBQc l7I9aXO1L0LcGRDguglm hSHdtKccTP6nRZWdgkpm QFOteU3zZRXeQ3y7LsSn IhW9XEvmY2WbkhV2 TVGyoPQnNNPgqEHExI0j onzhr8cdhxhwLiJfJOGa WHb5FIv5BOAqeCbfJxQx NIA8XsZ5OPC4qKXh cO6dxFfcwofgbL3gTmw+ VHn1y6cjyLViJC3mpKG4 QO87VK58lNHba3A3gYH3 W7VpQHSxwscgtcdu mDH2YYJbPGNpaJ63Iq8b vUsnZf3xQQXaPAH2PUDg cDPiN5EaiF2gVxFaWGPx SDHrE8QahUTbQDfl D426IYhvWzT4SEMgkwAh Y6ReCZXunUxcUoZ8v7X9 Ao6RHN34EE67MB47iYUi v9L2eKT4S3TcVPIt ttdrjgatiUL1TETfZDDq cQ78Pu6tfBxqBe6jBHSf JJC1WDMckVTjA0CfvL6w MiMiGGFkIQQaH4Lr aZJcTOhjV469DGouQbX1 BOUsloHuZ5NiCZYhaRxw TtR2a3N2Ry8KEw62DL19 KM29eBNld7A9xZO8 V7HoTIRxotqhvlqeqLM5 TMOiYLCsuG20Zk3mkZoe Im4lOSBrGHX7OGPhfMWz Q3GwqJ0iDqWmCQUm NYRaS4ErpJKdMWdtK227 ZEijAwZ4FJUwssQbD3Wk XZXosDxgCzT6j8V5Ms3X KRnxyks4O6ShBklq dHI+OP85DKIwJQ92qSSe uROhx7svnWa6UjNaBJCz YGT5jWbmNJmjp8DhFQRh X02zyUYyl7T0PWXt bGx (more content not included)... [facility] Wound Care Noteon 07-29-2023 Wound Care Note [id number]. [id number] [facility] Coding Summaryon 07-24-2023 Coding Summary HTMLBase 64 PekwhrpzEUd3sHb+PGhl YWQ+OE7PYACbK77okZSv mG1lO9ZKFWoRRioeZSHM KCtYQnHmxvSmUV9tsPMa ZXJu IC8+WN5tKLGgXmdmoGJv h6S5bJA3S87akx8pAGzg zXG9OVIeDnOicomfm9lc gTt9JSqwUwbvRrQa JALjrO62OFK5wC64Er12 pDSawOUwl1utvKd8OlDi IRFgCQR5zEznJWxsu2Nt JBKrL41meBMad9P8 IGNvbGxhcHNlOyBlbXB0 xA8lQLqgbfzuy1hihpyu Yxu9pw80kNAfb6F0zPC5 I9PneyI4OUWhqOJu FarcsZOFsA1zecbqf9gy ffftIgJeLHUzDAl7OQy7 RNYglTebRqFmJW57PCD2 RMLnprQvH9AlHAVl cVtaCtP8a5L3Gj7VW5WR BaawY7OXOCZUCAcrtHU+ RR59qc66W0RnLzbkQdj5 IWEhYRO0wNW2cK1w NOXpPTqts3A3iDB2U3Sh leVeda0lr7mtLEDuENtb B25ucXSjc2R2AQDjaCV3 GMNwhGguGrCmaZ66 Oyc+CTQvuRawc8SuGspp u9bql3mhvAz4QuqgIOBm pdJrbJnpLKJ4p1BoLt1a HICpjYU7pIY4lB9k YjAuTwH9PIuqX675NwJi tRWeGmevB95kU2StfKZ+ OVCcTwx6SBQqmStkOG7c F5RyTLAafsdilOUt bVjaUL7vZBDynxbvPQTz dP5gBDFgM7i4VqFaJmR0 FSyzM6OaEAAqfrklTg62 pH7yRcAmJiZ1NNvr C0YxlyL9PHWayVWySOrn TUU8I51lj9Z8GPNwBWLa XDW1uRN8oQ6efOfaguhw bGVmdDsgdmVydGlj TMtcGSmcC659SZEeuVau PkNvZGluZyBEYXRlOiAg MDMvMjAvMjAyNDwvdGQ+ PNZuEOI7pYejRABo zPNjZNhaYe6xmBogiLtb TR3sESKsclfyCWQtjO5p ELVqrIQtwSzrFJ0eTIUj gqifq847PsQpXWC9 IMFtcSQsS8GuhC3qPyUg DRGcKKPxB2VpvFFlDHjp V226OKtqBwR4VROqxyXl A6DvLFTbvLjvUzX6 k0R2Rj3Ql3NojkjtE1Nr lUCtMsCiMtjsAPr3H6Vh PjwvdHI+FI17LPSoOF96 EHr3YVM1uAmqOHtb KCHmY4CspT0uNqNyGAWg ZGRkOyc+PHRhYmxlIHdp ZHRoPScxMDAlJyBzdHls XW3hCg6kZERmWRBc vLtpzJXhRbEod4noCLIq UOvhKI1rkSkoK5VdtMK0 WCMwh4i4Bp96F18hS7Cy dXA+RRApgSK4mTK5 zH2uNsCjOiB8SGnzC471 GrHffIJaErcmr0mrl0wk mUd6AzK2DWCukuLtkToq FYS1h0EvVp61L45s IHdpZHRoPSIxNSUiIHZh eFyeli0coE8aGt5+PGNv rEB0qBP3kU5oOqMrSgH2 YUmlE593GvJxnQKa Cjdef5kqn7nvtOr0PjOq KGPogpGqvKauHHS2x1Hv Xj32G8GfeByxy0DsCdy0 uc55tUGdc8Y8rXU4 J9SyQZGtbwsxcEGcyCow ZM2yDYCokmsmQKFpnN2s XNInH3q7XqNwReL4YVxs T8EnjdX8TPGpmUXh QZIcpEIIfH0lmdocx6ja pnfcChDaLNFeJBe9JEe0 RYVntTzxCgDcGQU1HcT8 BCV2zVZayY1rlDap jjbrcF6nYps+TTT1hJEv wPJEDA8uQmvtnQA+PHRk NQH4lYscGRqgQCQdyG8h KFRfS2p5ReFjUtX5 WMtcE8VkssY8UFTcuMCy BKTefWRLrE6jmjhre3ro dmygOgHzTDTqTDf9UHj3 LWFsaWduOiBsZWZ0 DlP8SZP3rJCprQ9aeWza vpxnjT3aUkv+QmlydGgg XRB0XGk5X0ZpAug8OUVq kDzpQK3ymSChDBie In9zgRwvfNcmMY6pILIp qbvwx575CuMpi8sbCLWd oZMvTSjxWQU4H82aj7T0 VAJmWWJuMES1jVH2 lU8mwAcqxuikoIXazXrm asNchVhyXQceCQlgR713 WIZmkJwuNtAlTVa6P4Wa Fek5RYVrqTemKE3c tOBlYUmfOj7jfCadsPec LR7fKDIsycytu171FmZx i0wtCVVokBCxDAgaWFN8 V34ls7U2BYZrRYHa OZH2gZG5kV5hgUjwmqii bGVmdDsgdmVydGljYWwt YIhiN498NPFafQgvOaOu bGf2Z5QaFfs9PDSv pQgkHQ5yfGSiRRthGl9f aFxodBpxSH8pTWClhqik j967YeZwc3ayXDMguVAe YMvyRVW2F03ps4Y7 UKZdHVKyGIB3jGD4bB1v bGlnbjogbGVmdDsgdmVy zWdzVFhxCJadL429IYYc cDsnPlBhdGllbnQg LVeqPQy6K8LsNjbofFH+ JW17HUOcHP76pORmxHRw d2uiwUf5TaKwHMDqZDC2 nTbhRZhps1JjFLPx I44isETyf6U3VVEqoQyq yKYmPtYvtFX2oE8zZHaq yidik2yfnwjqVxwhs4yq lf81qC00S71tPCyj ZHRoPSIzMCUiIHZhbGln gs8hcP7eVm7+PGNvbCB3 rHE3pI3yARTkPdJ3OUiu O913LiSegOGcRdnb f2ptb4ptqXv5FlM7ZHLa mrHloXnvXRK3q5OcTh49 W08zTSdvIYZdOJBoCGUh RIHrhHsapa4piH8a Ii8+WZExbXO1rJX8uQ4a HiXbTjK0UCmjF913LkZi cJQnLcfaV67nS1CmpKO+ OJWeCmg5UQVheGrl FJ5dxXGnYWyzVk6oTVK0 EqHdKqWsKRvpS9YrRQRl jhmjnwdgjAO1WLXyIIXa sH92Il5vyRmiYBGb zGWOfL9jmulsi1gqdlqu RvAkVMFiKFl2FWi8FPPs vMziQdYmIEU5LeR5HQV8 oMFthK4xbIktixir zM0bW1IcGJMdhzerAa13 bA6lWyNePiP7ZItoPkx+ E8LZLaliEF6AW1eAOOlj SzwvdGQ+PHRkIHN0 xVhoUDhyAOCzgI2tFKTh I9b4ZyFdHvH8TQcxI7Ty BDTwarktMp05wJ6tQfUl MkR0ACukB0VpbyS6 IWLocUGcPAwxUWA0W05a j2V5YASjPSUaLDC8fMR1 uQ8tbSqkncvsfEXtnQva dmVydGljYWwtYWxp Z247KUXzjRyaAoSiDiG2 ViT8OnG5T5DoQrd9GMTy nGpjMU5tfQQnPOlaWu0l eGfakYieFW6tZLUv suwsYCYpkN8hCWAgeLEq mVjnLG3dHACjllaux087 DkEtSVN6GJGdbTMmD0Au rC7cQmBiDKHyPUEh A0RavIPdIKmjS798OKjn SsL2HXXpicLtW1JeICGk eBvxJgA8d8Q3Mw82HNOE ZWFyczwvdGQ+PHRk TUM6mStjTYgdNWTubF2s KEKqD1i5QzJmSsR9PWsq M1NnIDQbdbmdDf66tN7d ZzWpRlY4RIznI9Vw nzL5FDDmeJRpERrlRQZ4 C39ux9C5TKTgAAEtDTG6 wLW9eE0gbXjhjoybtFLp dDsgdmVydGljYWwt GGhtL330KQLthZvnVk8E YRE6T9OaVsw2KGMxoYer GX7jaAToIMmaNu4kzSjc zJoeUO2dKBHdefis AKVbtN4kRLMcnHVytEda BH0sTXLoijesc108HwEb WNM8VALdjYLmR4FamB1s DrEqRAJqZZQoN4Ty aKSkEXimC968WZoeHvN0 WOOubbFpW4PxLQQfoCqu CpX9h6R8Xe7UGCrzfGV+ TM50ci79N0NgRpxb Eah1VWUtMNO7zDM4tD4n ASSdEXeqk6D5qGD1C8Mt juQowv8qs3lrHRBtDWem B00fzFRzf2V4LQQc sWT1SFGucQnnSlIrtL58 Oyc+QQGlgRvyh6PsIckk j0gxd7zuxHs6KpAhDSIp qxHbbKlsKCE1w5Ko Do04X45nXSsaTUHrCFFk QLCyTJKdhSajia8fpT1o Ii8+FJNtmPL1gPR8lJ6t DuQaZgH1AXecN859 MoGmiWEoNctbk5rxq8at sWb8WeHqJOFxefBmzTuj SRF0k4ZxOe82T3DbzPwy m5JmMcf5dg23aRUv v3W7fYS2Z1WsMCQpcikv rKTazEvdZK0kDNRwldqr SMEmkV9pZZRxO6b1QwGn HlJ6XTyiR6MkalO7 ROBuhXKwVBHczPZWsG7w tbfat2tiywewQqQeDCDm EXx2GYj5OYNuxWfcUzKc BDN6ZoN7PVG2oXZi oT0hoYkdzgfbpF3lExv+ OLe2d9dlbBRyCY7wwUO1 SQ01MV73kALoj0N1oYG1 W2FpSFLuyakjvbyz kAD6EBFiHGXbkH11Of2i fFgsKn2pOHGiNUI5DUWv hQWlP2AlcJ8uOyMpNHIe WKLbO7JdhQVpVYia R959MZakBqQ3DIZkxkDf D0QjPOPgcZuyItA8w5D5 Ek1SNY73ME88CN21cTYp j3H6dAD1Z7ObWGSu kpoorkdyuCP6EDDjNTGl eG23Yt7nnZugQk5pGCUi LBX0CGCymLScX5BuyX9x IlTiFNNcNTNkB0Uc uIYpWUwnJ725TLqiFrL5 KASjriEmC8WtDYKwtAql WiR9y2A9Ts8QFq42AS12 QN11uEGbn5A9eXD3 H6YjWLAxgjgjpamibLO2 KJKpBFKlqA51Fs2nqZvv Cm5iSIAnTAJ6AZAapTZv Q9LnxV0yRqXfCPMm QYIeM0YlxFXxEIetU309 OEfkBlG7UBQrsdOwS8Ev SZXpiEweBoR2m6O6Ur2D JPdjjqm2S7DzRnds dHI+BF26THSvKD42xZLl wCSmq6byiAq4SbXfGKKv SGQ0oJmuNLyrl6CfWVXo J27goZZek3H0JHVp bGx (more content not included)... [facility] Wound Care Noteon 07-22-2023 Wound Care Note [id number]# [email or web address] [facility] Coding Summaryon 07-19-2023 Coding Summary HTMLBase 64 XetpotlzTKn7xWe+PGhl YWQ+WM9CNNKqP67beBJn mK0gG5XYJUjSSyspNGJO WCpHUnFyeeUsOR7hnYMe ZXJu IC8+ZJ4rRGThNdwpyRGd u5A1qWP7M88elg4tNYlf vJJ6NVDjDlYlxojlg1er zKq2TTkbLdllGuYg HSHryJ24VZO7vC74Hn95 xWOjcLEuj0ixePe3WfAc EVNkFAW2jLyqYXbck3Mu BDTlI33aoINth7V6 IGNvbGxhcHNlOyBlbXB0 mM2jSCgfwfvrv8yroejs Xxn5ma70iDMrh7A6lLD9 G9TvtvZ6IQAipJAa UkbcpTRHfE1ruxuvk2ua epjxZqXtVVTjVTy3ZCl1 IXJuuKsjMmDoYJ69EKC6 LWSzcmRzL2NyMALw tBrgKnZ0k1J2Gh7CD9GX PxefZ5TPRHMDEDnurKH+ OU42qm85I4SiWhbfWwr7 QDRkUYU1xNW4wO6k MGFwGIwes6A9oOP9R9Un tcZmoj4cl7dlWRNqNCyq K07xvHHrr0Q0YPXdoWZ1 FJEdqPjdGgZwbB30 Oyc+HZLybVuyc7BhZuzb k9hvu4tblJd0IsamGKJw vvIcnQwfHQP0y4FnVo4h XFQnjHA6yZX4wX4f DlWnKsW3YDfpH052GhRj lNJnFimkR64dW2ZopBW+ RNPuXna1UUTghQrgXJ7l W6HsJHBxrvyeeLPq pCogQL3iZACagusxSWNf tE9rTXAlZ9t0QjTvNvN8 ILpjZ4MzLRCpcahvLf49 nW4kLrMsHmN5TCri Q5IgetN8XGHjyBSmNAcc GIT3T97pv9R6YOLvNWMy BXP6tXQ9gJ7vcYotvdrt bGVmdDsgdmVydGlj SWwfBPunF556QDJaiWvp PkNvZGluZyBEYXRlOiAg MDMvMTUvMjAyNDwvdGQ+ JZLyMEG0oGqxTJHy uJBlKJpkYc6nyUcloSsz OT9nMLLmfvwaSUAvkP8y VXJkuCWbpVqnKZ3eDTHs tiauh629SuEzQFA8 KXDfzYKfS2KbsM6xLjRi QGVdIBNtS3JgiNMtEYuu E903EPyiYlF6AWGvebDk Z6VgGLImjGsuIoC8 l8D4Vb0Gp1MuimbiC7Ve zQJvLnOiEqzgIQu7D5Rd PjwvdHI+HN21PPEuHR89 HCw8NCK0sIuuEVzh BLFhX5BdtH2eOaVjLYHt ZGRkOyc+PHRhYmxlIHdp ZHRoPScxMDAlJyBzdHls LA8gRs5wEGEvUPTj eKyvaNTkRoFmq0piEUGt CRypAB7psKbkV5IgiXI5 MHAhf0p3Un55N43qP0Hq dXA+JQRelGR8dHB1 lZ2pIxHzXuW0FTheP699 MvZhhCSiLemlk3kzc6xw gQk6SpJ7WBTvbwTkjKtl YMY3t0BoMt92R43g IHdpZHRoPSIxNSUiIHZh mMrvzh5xhC5oWu9+PGNv tDM8iWV0yW0eLwTeKqZ0 WCavL490YrMcgRRf Yqjdz1iaq3dfuQo4FnZf LABtvmYheSsqSJF4g0Zo Id64Z7LrrCvta0QzTsc1 ff51kLWhf2O9hFV2 E6KdWMRhvjilqTShwYia JR7qXCTlttghTLMcfU5h FXEjR5g9TbMbObQ0SEuz C9XwziJ1SPVuoRHl XDLsbIRZsZ7cdqqft6uf jbkdLhKzKKDiJXq0VJv2 AWVczWxgNiKtWNY5MnH4 BRW8aVQyrO4jzApf idyuzZ7eHsf+HCJ2tSEi eDCEDK7xFhciiBN+PHRk ZNK2vQslIHdbWLJkfM7j RWGdO4r1EaMkJiC5 UQggM5QysdG0PMKboRJt WNXehFVTvQ9xkemhs5mg jivbQaCtFQCkETp1DRv2 LWFsaWduOiBsZWZ0 NxX5CVK6jBXdvC9snZdn rqromC9kYso+QmlydGgg OXB3BMa3L5YfChd2YVJa aAbiTR6peIZiMEwn Gj2ozNqfaHqwNW2oPGBm zrzga130HuFpo7grYKSb iFAaMHvaDJW2Z97gn8Y4 LACtSCAhVCD8tZA4 yV8mtVydsecgtGQlyOwi qjHckGmrDWfqPVrrN684 LSJgjBdqAsQjHVj9P3Xr Aro1SIHfiSnaPH9f wBZhFDajAk1wpTnupFke EJ4sBKRzxvdql456JvEi s3hySYYkpYUwKTfrXPB1 C14pf9Z9CTHcWMDy MBB3wBS1iZ0pnJksbxrx bGVmdDsgdmVydGljYWwt IOwpK163KFKehPevYqLy sWq5S0RvIqv9IPTk vZidJM8dmKYaOMkyAb4l fZsvqYghWW2fLGRysmxd z117EtGsf2auZBScsGVh APzqMDE8E75zg2T1 DABkOGGcZGG7fPY1pP1d bGlnbjogbGVmdDsgdmVy iGepHUlpDHyiK274MRWs cDsnPlBhdGllbnQg BIkxXXj5X3AhQxudpPS+ WZ26GQOrLC39oDXduGLu y0dhfVd6SdUfLREwRRR1 wSzrYCedg4AyHODv K91uoBXpd5B9YMHisTyq kXDeJdUnbNO6pZ5cIAjv tsywr8unbknpIpwsr8rc yi27dZ46S46xPFuo ZHRoPSIzMCUiIHZhbGln st4wqQ3mXf8+PGNvbCB3 mKF6uF3kATWeMdE3OWoe U269RmEotWKmZaaa x6mfg7derQx2JfQ8HYEb ncBktQxbSFF5c3VoGk53 T02nTNbvRXXeENJgSCFs TMEguDdyrc7sbV8s Ii8+JGLafEF0mBI7zB2t NzMqRtS8SDvaG176CdLt oRBoWegpR19mH8GleIY+ ZJQhJsz8FLBybDbu NK4qvFFvXCsmCz4fZAN6 VhJxNgEgDHaiV8FuWSOs auxmxraniBB9UWQrHULr mO03Mn4wlKgeTXNw yMHQzK4kdrbhd5zpdlfu MnEcWXPrDUo2KGp7NNEq iMtiWbCdUGL1MdS0IZK4 eZXmlG5lvKojrkbw bV5nB7KlIBGnhfcmQi76 uO1cAiYzWfT8DZufTdf+ L9TIWqyfNG4UX0tVGTno SzwvdGQ+PHRkIHN0 xCpuSXcoFIPspD7xMHPg D4q5FxUnMoP0VEqjI9Ep WPFjxcqfHh06fA6fXwYx TtW3YXecK9FzldN6 RPIvwXUtBRkdCLJ8P19d h0T3FNKgTWRoPXH1uAS1 zH8uaVprfxnviHOdlKer dmVydGljYWwtYWxp P312PVMtjTbzAtKkWuL7 LkS6DiM8A8ErEqz8QMEz sKvoUC3jcMZmFGyiCu2w vAghvDrqQG2tNQDk xhkbTTInmD0tASYiaBKc qLptQJ9uLKNoviivs394 SnQwXCU7TKWoxDIgF4Wp gF7wVmOpMTFcFITj F1IxuBYbAZgtZ745HJfp ZfK5VSNemtEoS0KeFDNv bWozBjU2a8M6Nd42BJMA ZWFyczwvdGQ+PHRk MQL4hYmwGWfsMUBrsW1u NCCeF1d6RvCzQpK2ALgs D0DfTJIuzserAi99yE2x CpSmZxF9LSpsB3Qz jkZ4VEKnbXVuIBrbKEQ1 M57wk3M3YCTjUUJeUZM4 pBX6yT0iaQxwkbjmxGZm dDsgdmVydGljYWwt BTfpJ079BYYhcUwqLg4P DPI2Q3BsKez1RJTflTri FI5ktZDwEFgzUo7vvAcw aYviAE8iTOCzvxaf DAQncT7vKBPynSLrhZqe AT2vHFQbsmqxt550DgLn IPT8PRPqqXUfW3JtdG8o YpFqYGFvYVCiS0Js tMBmBInjW059HWchHdG8 CKBxrbInF8PzPIUquRhw PmL4d3F6Bo1OFTsyhIT+ AL46ek76V0PiNmjp Ypb3CTMfAQB2mPJ6mR7o WOZlVWvmd6G1rDO4V7Gi ghAjui0qi0eyGSQkHJle X16yoRLzw1V4QKKs iWC5NCCusOjxPeBekA21 Oyc+JQSuxOjqd2QgVuum v8tcp6pawTa6NqYoWGJy plNotJgnVYZ9y8Id Za29Y88iJVizSIDcJFTi JWBdDJIuwUszmw1oxZ7j Ii8+HRBtvIX3iKI7jP3c XzNlLbQ7GGduP875 DfWbbCJnBztfd7bvq5hu kPy3FdYfGQYfudXldBtw RKE9a1ZkPo10A5HdxWyh t1BuJzi5xj95mGDv n5Q9hJN7Y7LiJQPrdmtb iCPfzCrvIC1aREAlosdz OVGcoK2zMVCaX6w3MyGh NfS4XJmxM9UfgfN2 QCOreUNtFHRirLPPrE2s mkefn3mbzleqTfMsSATd TJy8WUz9NEWjhKnoJcIa MHD9AsI7THK7lSNj nR0hzUlwiqxnnB9sBqb+ UIl7y7nrnZUjGT3mgUM2 BN83JR65jLQsi0V3jLL1 C1KqQUUhqxtbwhtw iMY7YEYhCGBysB60Aw1h dBvtWs3zWOFtXPK2NAAm vEInX0DinU9yDjPvOWYn DZEbG1ElkQPtWWbi E105XGmxTpU5AIYhwaLe J7VrHFIhjJgjPjS4a7G7 Sq6YYF13VL39UG45wDEm n6N2rYB7V4AiDYBf pnhbdzymfSE4CPPzLRAh hU28Bz8fmHfyIb1lPZDl ODC4VKWceRSyP5LstM2m EdCwHCQwWKFzP5Xy tAXkIFxxG128JZzgGcV2 XWQiakVgJ5MqWVIgpYen TvN2t3P8Qr8IVp29EK09 DS94hUHsr2O0hXP7 W3TeXTPlxomtujpcuGZ4 TTIpKBAppD79Xq8dwYlk Od9yFVKlOQH3DFMyeQNm A4BllZ5uNbZsVHKa BMYeT3IkxQFqQNtaE764 EWuwWzS3ZQIklmAfO5Xz GFDtpKroIxC9m2A1Dj3V MNgawqk3P4GjZuwa dHI+YB73EDDhBO30iRMp dFDvx4invAr4QvIvLILb QWU0nGffFWdit2UnUDLz D46qmSZjp5I3THKp bGx (more content not included)... [facility] Coding Summaryon 07-17-2023 Coding Summary HTMLBase 64 LbjfkdqkYEb6lGj+PGhl YWQ+VP8AWGRcN90kcUQz hO4xR2VXHEsQSwlqMDUR JRgKCbFdxqPpSR4ruKTq ZXJu IC8+RT6wANOcRmkiyJJn m7G7fOZ5R86qaf3zLIqx iWJ8NYCyGgLiiqsyc5xf pEo1BRcfPedfPyMe LIMliP83LCX8sL43Pl11 kMSlaCYuy3wswEl6CqFz QLHyJOE7mXbdLXyvj4Mb XFQtX76icIStl8E8 IGNvbGxhcHNlOyBlbXB0 uC0oLNfoqtxfa6kgotpd Ljs8mb98vFShj5U8vUL6 W0GjrgB4TSUiyXXs CofktBBRdI0uvfbfi5tw wfccChCuWFCbZGt3OOw0 VMKjcYhaOvWoLT89FBG1 FVVzsqWvR2FaWJJa sOqaRmM9h9H9Lk1YB3AE DtcvS5MCETIYKDpbhHO+ JM14je42N0VlUlnyMxn6 LZHdHHB2iBG4tR2z ARMdHRuhw4B1dRO1K1Ld kfFyfn7kx6yzRQFfJJuf H90lnKYiq0E4GPSuvLA5 TPIkwGceImQnuO50 Oyc+YAEhvLqdx9NsNcrf v3xyv4yavWu2UklsXXVn trIqkPisTOI3d2XrSt8y FOBphSO0yGM7zI0s JtBrUfH7XRypT086IhIp aJHwXaegE72pA4NusAZ+ VJSfBxa7JTLbvGapJF1w B5VwXOJivzxrjNPs dOfiVR8aCVNvnnliABYv tG2vSPJcU0v8TkGkBiY0 WEjmG2OiFFNxxcgcEs99 sS1wOcTcNcY7VJdk R7NilxW0JXVolULnHRrd OYC2R02bh1L5FFOmULYk HDU4aHT3tD6yuRxjflju bGVmdDsgdmVydGlj XGfbJCcyA534TQEpnXdp PkNvZGluZyBEYXRlOiAg MDMvMTMvMjAyNDwvdGQ+ ZLSvYYX8sHgaZGLb kOLaCLlmXf6mxGziqXsz HR2oAEQnnarbCMHasJ4v XNIkxYQkgFtgEY4oEAXh icvuc994LiTeFIW5 KNXfaMQyP6WotJ1uRaFj RHNdVJFyX1PpjMMqAPok L656EPesMoV3QIEeznBs V1IkGQNkyWocJdG1 t1X4An7Ti7LnewvvK6Ue dDXzIuYfKhcaVRt2D7Fr PjwvdHI+IB64HPZjCL77 FBh7ZAZ3nAqzXQze ZAEiD2AtrD5iRzJoFKLd ZGRkOyc+PHRhYmxlIHdp ZHRoPScxMDAlJyBzdHls KO4nEm7yNFRmMFIl dGzlaRXlLiNcl8paTKHt QFteCJ5xgYocM8UolKE8 YTXjd8c5Tx00B77hM5Ed dXA+RAZsuXJ9nRL0 gQ4bCtQaNoU2PArzL266 MpMhtHJsZvcxe6nia6la tSz1NmQ5GASguyQtrLwi WBV9d5BkNr99W48t IHdpZHRoPSIxNSUiIHZh sVbafu4elE1yHv1+PGNv vAD0kQK9hS0eTiWlLlW4 EFnmH951AiFiaWVg Lbzux5nta8iyqUy4PoDw EDNwvhCsfVbiKUI6n6Qy Nv53Q0MitMwkk8BjJxi5 fu13lEKuq3Y0dET0 J6PoZDFdupmzjTLddCld OS1vQUQoiwssXKDetH5t IBWqV4m3WzFhEoB0FNnb T4LfamY1JCKtfGRm AHPdoXDQuE9xwqbwx3cn motzRcYsRPPgUVp1SQn0 BGCvyTglExWtZRF4VyF0 ZPF6gWQueU9gyEtk wzptdI5aIcz+WOG8hLTg qRLTUQ2iKqgpqDE+PHRk BVF0tWsbKGmxIEZlxK6p CSZyS4y7VeVrQwY0 RXtmS3YxtbH3VUCioGJl SBRpsFHNpZ3utbruy7ba inbyLeZhOBUvEVp1URa5 LWFsaWduOiBsZWZ0 BrK7OUR2dFEeuO1oxIyq mtxhdI9fKzr+QmlydGgg YRH0QMf4I7PoMgd7CHTb rTyfFO7xlXYnXIcm Mv1goGehbSsiJL6bAEBf kfefs195IjVaa3cxVPLq uSGiRHkyQWA6B54am8M1 VHPtMNWqMSH0lDE3 gA9saUzkpskqmUAmmKiv wrGqzKikJRuyGUctU013 YUXoxSthUhNaHGx1C8Qn Rcg2DTIcsCegMX4k zCKuMHhgGo4ggZuabFki AY6aANHnquvck737SkMk y8ncAVCldYAgCDfvXSN8 Y09uw3B2LTGbWGOo EPK0uCC6vK6rsIhdibwn bGVmdDsgdmVydGljYWwt RBzaD275LYRzwAonKqHm wEi6R4KaTgs2LXRd eOrsNX2faRLfLFglXc6t dIpydNhiWH4zRQBuehvj w451LlUfd3luUOXbeZCx XHxjGGS6B07ip2W4 EHGoMDLwIZT8aSD8yB6p bGlnbjogbGVmdDsgdmVy xDusTQcrUBreV451UNPa cDsnPlBhdGllbnQg UChwUMd1I5QxPhwxiSP+ KU46APJlIE89hNLcbSZr v7aldYz7OyRbXKHeUKY7 zQaxXPryp1DvVYPr D97ndAVyl8N9GDYihNdg uDKfLfIceNH0oR7gGBbv dtxki8ksvmeiCdkas8re qs76tK48D82zIRxg ZHRoPSIzMCUiIHZhbGln nd4zcU2nJc2+PGNvbCB3 gEE6eE6zETJxYaF8LIcx Q308WyNsvRGeKonf t2epd3wgpDj1RgB4ICNx vqCcvSswGQT2b3NqDy66 G90eKYqjUVGiVXLxPZKa FGSmnVywrd2dlM0c Ii8+SPFjzSZ0qLE2wT2l PnKpHcL6AAvjT423PeQn xFAoHnsgN45aL5LstHR+ DCLnLha2WQWsrKju ZO5afIBfBTlxDf0dINB0 ZpIzKzWnZKuiE6WjJFGe jhznsvciqYH3SGCdAIBx fT58Ss9hjBezDRZj pZVQyM3skoaay2vdojss ZnMwLCRjLWc6AIs4RFJg mXnzOzYfEBT2VsA7MQM6 zAVjzE9vxZhpzxxq sU0iR8MhSTMlsnpoAq13 zH1pBmXnZeF8SYrjBlj+ D9SAIphoNI7VV0pKERac SzwvdGQ+PHRkIHN0 zVxuBDrxJDCxgP5mINJe M2h9AvRqGqO5SYofW0On TRDbtipdCg77rN9aTcNe OyI5PSqpG0WzjvR9 KNGwmKZzESbuIRI8E48e c4U9FHIvFSFsDVD6gQL2 cG0wsKcgxpeaqUTeuMgh dmVydGljYWwtYWxp B029MNSkySgqPaBhEjG7 SqJ4UzT1Q1JvCvt2YYRv hDgbZZ0asEMtHVilFt3c fMovwZgdFU8gQNOw uojxWVPelN3zMOYrcZIn uWcvNO6ySHAochsyy183 HzYvYYL6KWXgkMIqT4Za fZ1uMgTfYIQaYGVu I9GwwBWxTApyD476CIcd QxQ7VEWwulCmT4MoYOBq lQpkGcL3w3E7Ip36WXSX ZWFyczwvdGQ+PHRk NTF2dWfkSQviCRIbyM0n WWVfQ4q5GvBbTlK8WOiz O5DsUXGcinoeVb92lQ8x NnCeMfW3WQezJ4Iq vbI3WZIuqNNpJJkqIMU7 V92ey3D7POUjLWLuCAS4 aGQ3jP4boOmxkbncfLKa dDsgdmVydGljYWwt YFfdZ739ZNGsmSikAe2E YCI3W6BkVfl7BRWhlNmq JJ5fdVFaQCwaUd9ylKzm nPaaTK3wXJJzsfrm MMZmtB1kYNXyeCButBoe RG9wBKZpwmvqk090XdRu FBJ6EPItfQQxQ2TlwF5l XsFnCPKlCBSzX0Pd rAVxOQxpJ785LWeqJeC4 OVCrbuEdP5XsRGFkjGxo ScZ0k6G1Fg8ZOBjdrHR+ YE55un74V2EoJlmu Tjo3IXCsBNC0xCD3zS7t QHJqINqsi6T2xBD5U5Fm utDjtd6ot0amWGBqSNxc C63skPZsd4M6IALp eRR8OWAojVwoIaRghO98 Oyc+MFDecTjyv4YkBumd d8dhk5fqbCn9JdUzSPUx bmOorMfpSPB1o4Ch Gk43Z53oFCrlCMUtCRYk JENbKSYyfSfjbh9neF1i Ii8+LABqwBI1dUP9cL5f YwZxSuD9UTauJ892 QySavWQrQxpzs1lnq7xq wDl2HvVfIYSyyyFxyHbq LBB8v1UxOh02X5OehJve k2GkKnn9zu91lIWw j2I4iYI6O0KrTHXdmyzd dHUzdVmxWE8xZDTwsvxp IOScqP8pAMLqM2c9UqKk ToY3ETvwY2TvrdS5 HNTtfYIkJSRzdAZKdX7u dwqjc0twehkmLzCoKMGe TVd9DIs8GWIewScpSpWk RAI5CcV9QME6eADw rM9oqZuvtpznrV5eAvb+ KGz6a4mulMDdDJ3laXJ4 RU49XS44iNUlb0H0qCP5 F8UuRLOtojstzvem rVB9CYVoXXVzqU12Cq3w yGdoPc4dAPFvZWF5XWEd aMYoT1QpnO1eYzJzEMFx BLTkI3OsmEAxARas S860JWbyQrH7JNLdloJk Y3KhMJOhnWalMoX7i4Z5 Ag0HPV96QX93AB34iGEs g0Z9wRH9C6BiIWMw dklgkytlaHD2LLQzCVCf yT67Cf7wwXksGb9sIQLl RIF2PWRebASxD0GfuG6m NdBeIMVmVUZaU4Mk dAKlQWtoX651GItkPkI7 LTIukmOuG3MbJPUkgWni BgQ4q0F9Ph5GGn79SF86 CO44mDKjq1L8zHL2 O8ZzFCWcngsjppesdQU0 IBAiQELhtQ16Vl2zfVgj Zv0lWEGpSQZ6BDRadFBi D4KhdA9wPfJiMJNw GMHuL1VyjTIlEOynS315 HEboRyE7YESmxsMzJ7Gm ETKhqVqhIpB2j0N0Px6P YIqzned1D2MvAqde dHI+UN19FOIuLB99vPCl aLTpn2azmHm3SjUsSBUh BNS5pUrsWKxhp2OdHFJq P29xiAZep2Y8UAMx bGx (more content not included)... [facility] Coding Summary HTMLBase 64 XxiefrdhMHs3qNj+PGhl YWQ+BB4YMYWmE74olDTp aA0zT2XIWGgUXpnsBWWF VPwZEfMdjwGoSB7gjCJh ZXJu IC8+JJ6tLGSyVnkwzEVf n7P7sPP4D44erf5fHGzt yHI5QRJvAzKxntcxg7cg lBl4XBabFdxtGkSl DLSghM19WBE7gJ41Yy46 dEUmvFSdh7nmoWw4RiDz TPAhXCI8jYjtDCuoi0Bc SVVpS44rhSHbi5W3 IGNvbGxhcHNlOyBlbXB0 eN1wBAljwxhdd2ytexer Igy1gt10hSYie5Y7pTT0 V7UtlwT1ESSemJZp ScfgbFASqG1cuqfym3rp jtlqCdIeNLJbWLr1MGu1 GRDarOdvIzFpGO51HEB3 IWAlxnMnI3AfCZEq ySsjTbF1m5F8Rh9LV7YC ClqfX8MKRDNOZMelqUL+ SK40wz32M5HpUwrhXga1 LBHcIAD1oHF8mX9u AYGhVMmzc1D5bAJ7H0Bk gmTsqo7ct3vkZOSsZVqa L56wbLXjg0H6TPOnmBA5 XDWoqZseEeSyxJ25 Oyc+VYTbsDcov9KxUlze v5czn1cgnUh5AgqwXWRx tfVcoHurJCU6f6YgLy4i TACwtHW6vQF1oE6y UnYrJrM3IRfiL875IrNg uXDnPuzpQ28vM3MtpGD+ YSErMyq8AAJveBasJF4e E2PuWESmwfhznNYa wZbnQS6dNGQwvphjFPGk yK5fVQVpW5a2PlZrUjS2 EYwoR2RhDHOtqngfUz73 xE6aCmSrXgJ1JTpu E0TuhgU5HETeiBXlLSuo ARE9X48jd3P5TEWeLQYk NSW6jWH9uB4bgZtvnxdy bGVmdDsgdmVydGlj EDhtCMxyA352RXIeoVgu PkNvZGluZyBEYXRlOiAg MDMvMTMvMjAyNDwvdGQ+ OJOyWZL5dSpdQRMg bCSlRTvpSk0cqMhqwLsh WC7oBCKhtiflHVWdiJ0u HGCnkZYovAbbQM3fPDJm ieanz519BiMpRNW4 NZVhmFQjV9LemJ7kCfMc PORuCLUsX2IkhFOrLKhe L944DFmoQbZ7ANVeufPt Z1XzKBAcaLjdOgP5 r8D6Ry4Zf5EixgbwU0Mk kHLsYdQaQjleLXy5N0Zr PjwvdHI+IC31FKNkSP19 PIh0TJS0xEfyEYcn CMCfV2KluL5nLjIdETUz ZGRkOyc+PHRhYmxlIHdp ZHRoPScxMDAlJyBzdHls UU4jTt3vNUYcRSEh oRalpDMdVrTsi0woIHUq TOkuOF9asRnfK7PnfNT9 CJNuk2u0Ac42T63zL6Tj dXA+MVIsnKW1iRI8 aB9tUgZgQmB6ZYvgD920 KmEckZFoQgttj7hrd2fj kTy8OfQ3RWHaqsDtlRjc ZMU7b6XjVf65V32m IHdpZHRoPSIxNSUiIHZh eJcfsc9fsG2aXd9+PGNv aRA5mEV1uP7uZqCtXlK7 BFgzD525KdCglZQv Yasfu0cgp1apgJj9NrXy KOAjvwYycHbiSXG3e3Dn Mn17U0MorJhvo9ZyOcm9 oy27bYNss8P9pQV3 L2JiTBXsrxuioXBcrZtf KB0hRYDkhxheHHNxgX9k HWFwX3v0WgErMxD9BSmd K4CpotW7VXKfyTRw TXOnpHDQhA8uznbvy7fn xsveTxFcPOCvRSn0DSg9 CRUwsQgqLvFyPXZ5VpR5 QKW4bZMivE1gtScd eoeidL5kRff+SYF8bZMu zTVXAL3rCjfflQW+PHRk LYO7oSjyNLjbFKCgeF7l PUOhR2f8SbGnPoA2 LMpjD2GbdiU6WRBipICa VOJhjIPKgB9ohaomy2qd pdcvAwCwRBTiFYz2QTy3 LWFsaWduOiBsZWZ0 CqZ1ICW8lWGloB7yvUxq fissyJ4sApp+QmlydGgg WMF4ZTw6G0AoQij6FABz qFzzBZ6aiWHgFXlp Yx2qhHrwdJqmQL7zKVTr ymcwv358IiYec5nmOLRc vNOkIIrjZDX8I08dq9X0 ZSOlFHDgEYL7pTK7 zP4ljJpcdbdcjIWcpSgn poLtaPtzNRhwENhqE652 XSFtmBpgAeCvRKz7S9Cm Cex2IFFkkDipIA6k qFUbIJbaQj6swUsuwKdt DE0zIOUhaugid607QwBs p4cvNVVvzLJtHDkcQHC0 K61wb3V4HDLtQGEj DYV5oZJ5nB3qsYyqzkgd bGVmdDsgdmVydGljYWwt MPjtO374EYMykBhnYeRt vVz9V4GcGdq6IWUa wNblLI8quXNiTYapHi7r yPcnjDyqRT2yMBFvfewi x546HtIzp7doLYHrzLXp WAhbMCH9Y77pz8O6 IGIfWTLtAFY0mLI5pC8i bGlnbjogbGVmdDsgdmVy pAomKYqqOQkfD096WXNa cDsnPlBhdGllbnQg AQajNPg2V7YgOpfneMK+ ET06JIAjHR45xWBpvMHf x2ojjQu3CdAkPCLrVDU1 sCabDBhuy5QzNUVq P83unXCtd0R3TFZpkOdw sPWpScDhzVR1kI9bNEia hqnni4lxfqfrMcsln0hi sb45gF25W20lEKaj ZHRoPSIzMCUiIHZhbGln vq6iqE9tLz7+PGNvbCB3 rTR3bO2eREHbIaP1BSrz P294EjWuaBKtLlav o8gdt7eapZh5DgX5JTZt ibYdmUafWDR2y1VxUf93 W25jWIbhLLRbEERyMILb RQZrnRkkkx2aiS9r Ii8+WRQvhIW9tKT8bF2f GzCkEyB4RDzbM488FcGs vRKgCuzwY00rW8KpwCM+ ZZDoYka1ZSHvyDjd AJ0erGYnEIbeEd8pZIT3 RxToCpItJAelZ0BoQTPr nmvidbbffHJ5UAKbEJZj iG58Pc7jjQlvXMSp lMVIzH1ezkraq9kwuxrf DsExCNBpMGe0EOi6BSDd sKbuSbNxNHO8DhE0EEO8 zVRflK7ufLepitaq rA6iT9XxRLYjnmmkZl57 bH2cJrYhHwE9GSxrYqc+ Q8ZWXbrsGE6AB6hSCOab SzwvdGQ+PHRkIHN0 vDziZPmkHQVecC1gLOLm N0g6IkFhGqD3WCneG4Mk WKGpsgmbPo73wQ4qGnKj GuL0JKxxQ8UydjA8 ARRkuLLtIFbsMJQ1G26s s2Z0PPKeTMFfZNZ0kRX2 aH0yrGouvestqRMneXxl dmVydGljYWwtYWxp O437OUUptEhpVrLyGdE2 OeY0MnG4W9GbAkd0CWFc mOtfUZ0oiZDzUGjkQh7s sIzomErjBU2iVHLn tcwoLAKagY5iPROvlVBi eFrxPQ2nALXwyaxph020 DvQhXEK5OINgsXVkC6Gi iW9yWiWaCVLdKXSm W7UojCCxYPpiK778JCdw WdL5OZGkhwIyA4BhVTJu eZvzDjE3d8W3Qq98MUGU ZWFyczwvdGQ+PHRk ZFP4mPrbJKtfICTmcY0s XKNkX7b0QxViAuG3GHgd N3GgFOBhcmwyPl13tP1j KwGcHfW3LQfvB0Tj ksW8ZQEzmCJmCVaqQDM1 G19jj8J0JTTyEMHtNIG5 jXK4dW6rlYgovrmmgSZb dDsgdmVydGljYWwt XFxvE201KGYvzFahZv1Z ETN9E7YeGsw1JSHlzZcw JM9dcKZrSKlrGr0ixRsk dDliRY5gNMDgwqlc XQEywN6gQRSybAVrhVwy WE4uOQHltnjqz992QfFm ZCD0UVUfeUPpT6EsiH6v EqLgRYSqNMSgI0Ys zJQoSCvuS715WXhiPhN0 BIOsdvXrF2VxRQWxoSbb WjF5b0H6Ur5NVBtbvFQ+ CC38eb93E5EjZyoe Fmt8XMNcDFY4eEV9aH5w OBHySQeuc9W8bKU6U0Bj ubKezt1hq5fqTPBlRSdn F71smGJtx8N3VPAp vMR1MHLvsVbyUhUfhI75 Oyc+JCCkeAfiy7ZiCmhl h9xyl0odoAw4EbKiJIHg bzSarVfkSRQ2n0Tu Oc04U38wBIbdGZDkNCEi BOJwCVHfgAklyl7bxJ1g Ii8+MLSykWQ6bAT9gQ7o LjTzLoG8ESdcV023 KxHlaCAjFwqge4upt1ls pEe4PvQtVFXzleXnuHfb MGY0k0JsOc30E8PasGbp u6UhBvz5yo00oYAp m5Q5vYN0U8RzKBMzxoep eAXnrXzgYW9eVCQkmmhu LOCfcH7nQVQsI6h4DaMn YtO0RHvaU6BjrpB5 QDPijVUpYMAuxTKNsH2p jkwgf0vpkidmQpXpCEUp BJr1AYs9RKIgoSskReYj XMP5DlC6YOD8xTFt oL4mcWmvwjhwoQ4yAjq+ QHf7a6hezXEsWJ7fzLR2 SG53MD08hJGlp3L9tWA3 E7FcAGThdwbhjohv dLE4QUZsFIYsyV33Us6s jPhbJp6tSDGdLPY2IUNf kZLgM9QpqE8oWlLfTLGb EXDkS8WwfMQgYIan Q134JEqwXgX6INBgjcZx A6JsJNPbaLgkEqZ1z8T5 Ni1NCK83NL30WD81mPJx w7B0zMU5A2YcPMSw msjwpapxbXD2RRDrNQYp aG83Zo9ygIkxRs4sVSZi TTM5EPMcnXEgN5AouO4r RzBqPLHoTZJmW4Zy qGVhEZvmD031BAryJlM2 XLJnkhQiQ1TzGCHhkJpc OxA8e6O2Zt5EQb88PJ74 PP58gISyz1M0kJG9 C5RgCEOygeeizkohgML8 CYElUJPeiR49Nn2beGad Px2mUSSvOWB4QKKpqOUx S8QifP9gCfMeETUj BBUrK9MifEDnLMdvM206 TZbbKlH2ANVeobXwN4Kw OBNwwRgjSdL2p0D2Fl9F ADdxaem8F4XqWafk dHI+IE96MPGxZC40rKVw vKIfd7ieoTa8GrOxMACr CLN2wMytMApqq0OzGKIz L56ddTEef9T7DGCj bGx (more content not included)... [facility] Wound Care Noteon 07-15-2023 Wound Care Note [id number][facility] Forms [id number][facility]-10-2023 Outside Records [id number]#1.00OTGTIFF [facility] Coding Summaryon 07-09-2023 Coding Summary HTMLBase 64 TsupjttcNDl2oSp+PGhl YWQ+FD3EXFPqW09zrFCe eX9iW3FZGTrEBfpiUCPW NMqIFuBituYtWH7ruTIl ZXJu IC8+ZJ1sCOPpTwzuiCOx a7D0mYD9V50nsp2uCNiv mVH4MNOdJfQkqexff9hc vZb4ENkgCwxyIwJj SOCbqS72ZBR4gK14Et63 jZPowFUcq5urrVi7AgQh YHIuMMU4vTjyRPqaq2Tv NCLwM54gjHScn6O5 IGNvbGxhcHNlOyBlbXB0 cZ8sGIydcgdqe5nlyfwm Vgo7zy66aQTcj4R4qZY3 E4MruhR0WQMmjVSx YdmycDXWlI7ylgnxm4gt cuksGaMiLOToALm1CRy1 GKZweHkoPmVtWC47JXC1 IEMlctEaN7KzHWYo bIxnHfZ2f3X7Xz8ZI6QS PxkzM6TZRBWFZYqslVF+ RS77kl12W6BsDwfiBgl3 FIBeRGJ4hSH2oS9l JQMzLBihl4D7ySH0L1Rd ooJqrf8bv9gvORTlLFrc E65kdPQav2U2DVIuoWX4 IWBxnTosZvVpeO59 Oyc+GODixGphv1FhElau k9rou8klzOp4EaypRLZs jjJhdVdyCUZ5i4FuOh0o USGfbHO2aJT6aJ2l SuZfZzE0QXqiC130GuRx mKPqKprvI14uV1ZhkJJ+ SZGwJlf1MVKpvXtqMN8m R0JrFCHgmrbalLGf cCofWU8yFHLfepmdYXTa cY2uRUZzX4a6TpJeCmP2 KObpT9KbZJNhuighZn09 hO3wPxMzItX4HLqe O3PasvB2DUOmsKRkKUlh DNT8A25jj0B2PZHvHEYs DEO0jFQ1iW1djUazhncx bGVmdDsgdmVydGlj ZCmuIMtuO166ZYOssRuh PkNvZGluZyBEYXRlOiAg MDMvMDUvMjAyNDwvdGQ+ QPCkJGB6wRwbOJTy xCGbHQolOx6rhTwynVrs VT8xXJElogksMGMvlL1r JTJsvDRowCjcKY0rAVIo rcmmu115LuAvFYB3 NUHmaIVkB4VjkL5hTeEr GMDnRDOcX6MivRYhTSxk R665ILdwMgX5ODDinqUx W8WdHZOyhNlkWzU6 e0P5Ej8Rp7SgijgmA0Rl xRJkWwMhKqntKUs1F9Ze PjwvdHI+ZR12XIBnGM40 RFi6XNP6gXjkHYbn ITSaJ2OsuJ8sGgXeHPOc ZGRkOyc+PHRhYmxlIHdp ZHRoPScxMDAlJyBzdHls UL9zYc3sWFWkXBJi eQjksEDqUlGrh2nfDVZk MQsrYW5ghShtN3VnnSW8 HXTct7b8Hj58D12iO8Mt dXA+AOTmzVL6lHI7 fX6eIoQvYcV2CMnvH557 BvTpcRQuYtfuu7jpf6tl qVt4DxX8KVQlvvUsfBld RJB9v1KqNz16U90b IHdpZHRoPSIxNSUiIHZh sGhfci3hbN9bAu8+PGNv oQE0sLG4sV5jIpKpFyB9 SMvfA756UtJyjKKv Zugtl5twp1wahGp5MgIz GGVkgvXnlWssNCO3s6Wd Lg32E5PxrSoew8MxDuq9 vb56vLTkt8E4oRR6 P9UqSMAtrhmozLTnpJlc AR8gQZTpxovsSSSvdJ8o TSWpE7l2PrJyIdQ2CTti A0MauhL9HBXqmWVs CGLeaBCCgN3dfbuim3cx qabjIzTsJQIaTTc4BYv6 FLCknKufFzXwVPP2BvE7 OIY8jNDslX7wmOkd ixjriO2aAqw+RJF7rVVt hFBUOW3zFvshjAH+PHRk ACE3kWseUQqqUGNhyC7p BRTwH3c9VeDqUfF5 HAzkM7AgpcH7PULkfYCq PFSofPARvR8vqnejr3hv zfqvBjZnTSWeMNl8KCn4 LWFsaWduOiBsZWZ0 ZbK4KTP1jXPrkC7rkKso vpjluU4yPhu+QmlydGgg LFN9OQv4D9JuEhf6FTPs pGtfWF4wiWPdAUrp Ke7tgDmjoSpzUU4lTQRc jjssr785MdGfg4saBXNn sLYkEWhlELK2R79xb7B2 BYJrPZXaFCX2hPO3 iT6pbFdkmbkosEOoqXst thEsiZeyIBcuJEqeL369 KLHsgWrzMaYdLLd3Y6Fw Zln2HNAohEcqWO2t pBJcAJrhKy9zwBntiIdp LR0oDYSvzzygw146XkXj j5kzJXNhzEUsKEzrZKF5 N81jn4X6JUJiCHTw DKE3cKY6kJ4tbWywtxoj bGVmdDsgdmVydGljYWwt JXqkM360SAAheKioFhKy qXk5F6FeCcb6ROUw qHvhXM3unJRfJOlkMq6z vXemzQerQT4sELGxjrxc c927YzVdp0jsLSGcaPCq VLofTBT1Y00ou6E7 WGRcOEBcOLB2oYG4aG6w bGlnbjogbGVmdDsgdmVy pGyrRScwRCigV888JRTd cDsnPlBhdGllbnQg ITeiOYh2V6UsBdcveEE+ UC88LORjWO21pHJbjLTy w1oowVv6OoJzCJAqBZO5 lBrgAHauk4AiNOMm K84sgKJwj3Y4YZEjeCai eYLbNyCixMK1hH8sRDql ipfji9vuwmmiLtzmp1wt mp96aT00E89mIApm ZHRoPSIzMCUiIHZhbGln cv4reL1vHa5+PGNvbCB3 pSL0xH8oQCTjUiA7QHxi J558HoKwvWKlWxyu w7wih6afoLi2CzJ7QLTd guWmmQnjYRK4z8JqYc65 X38sYGkqAMXfPKJwABUi QTSbkMtrxy8xwI2q Ii8+VMTniEK4uHR6rH2o FgTeOmS5ATdzO985IlRt oWWxEkzxK55dB1DqjMR+ VMWnPlq2MZAdaFnv HD6bcIOqIYqpLr3mTAL6 MdDlTdJsTNfcI6WcUGNx lyafftwmeFO3MQRtKTVf vW20Yn1cgOdjDZFn uOOErC9fyplzx6pgfljh AhBiNAMvWRr5SIw2IRAi vGgfOkJvZJC5NaM1XXS4 uVZqjW1jzCninbsv gP3uR4TdCBRwkbctMy20 mK5zIoSbWyU4CEhpEee+ Z8ESXlcrGY8SM6aSVSra SzwvdGQ+PHRkIHN0 jXcpBJxyEDMmnV3rJDIe M0x6JoAkPmQ5SMreH8Io AZKbcriiFj76cK2dFwBk DzL9PCyvW6UysqA5 NBEgkUNbMIswTIC1C90p e9K8ZMOkFYJpQKG3jRT5 iB0njQmkcqjjpWRgjDhv dmVydGljYWwtYWxp L424NOSwkXdvIzUjUoL8 UxY8MhV1R7HnHhv2RWBl gVdkZW7mrYGnHJgyKw6m gXhsnMmfRN3sMHNb ctymYBKkcM4dOSHptIJk jRoiIH5hSQAyeulwz554 QuLgEUU3DWUepVSrE5Vg vD7tWoLuCOCpRDIm F6OwjUEiJTnzH655DXnq QaC8WNPscfMtS5SwOIHi jBucPpE5u1G2Rd19TIJC ZWFyczwvdGQ+PHRk RLB7eWgyVIstQYGknZ3d DACwZ2g1HsBnWkI1GGcc N2MkULAcmcvaCc82yW6h PwBuPwZ4ZBgsQ7By llR4DQPrhPFvDJlpMIP8 B65dc1S2RRPjQCKlOKO7 kVX2sO9qxMotzwanuOLk dDsgdmVydGljYWwt GOflK458VHVabFrmYj1K ELU6S4JePlr5HPIpoNjg UY5dvJHuJDhjKp4gsQeh aKloHZ1eZJOywpuy CNFehE2gEARffJFwuQej YA0bDLFvobfjb215OmKp WMK0KOObtEVyN7RmpV5f CoVrZXSiLWIlS3Tq bLKzQRqdE181AIplDlY2 ASAnuyKgX9MfFCPrdCzo YbU3c4V9Jn3EBIvinNW+ GT18tw12X5RrIkuo Goi6UKCwINP1cFX0wJ3q IRCqGKuzr7B8oGB8L1Th anJbko0cn2hdBPAjOQwf I69suNOef9G0PUAb nCY7KOFhyCiiEiSmqW54 Oyc+UWAmiRtus0YiXbas p7kaj7jwdJs6MiNgFOAr ytMwsAnhRTG8u3Ir Tf09B04aVFykFDPjLHBb KJQsUUCprSrhsk0zpC2y Ii8+UTZcfLH3eNB9yP1g ZaYyElU0SDlwI029 GdYhqMHmWhjmm4tkz6zn bYh3MvGtWXRpouQoyTpl ZPK1m3CxRk54J7MewYdt o9LaIfm3bo49uFKv b5G7nWH0V2TcAGAhjuts aXVhhNdvAV0pVGWfyebv WKWddF4iVBZzN4u8KpYi FiB2TFooC7VhduX2 PBOgjNNwKWMxqEESiM4w lqvfz9ieocjsUtHgTIZv VZi1EPe2EXAuuExdNaPz TOC9KyW6UEE7qMWk tC4fyEgioznbjB3uIbd+ GKl9d0sbjMIzFF5qsVP8 YK68FM62wKXev3W8rQZ6 Y1SlOVGkbvwqofvs pPN2JRNmXOCggZ74Wj5m sWehDm5iJXEyEFY8EIEd hNSzS0SbnX8lKlVrDVGa FGDwH4YvbJAcEIxe C125CPaySvB8NGDtuiEm C1QkNKLpnIdiHtP3i1C2 Qb6UKZ28TC90NO80lLRb d6A2bWQ3D1TuHVAc rvsiexwaoSZ7WELhYMUj xW62Tk4qvQadZl2wCNGd NGX4PHPefVFnL7ZpnA2f QuRtKKFjIZCvD4Bq hORgUWqsM530YBgnWfL1 ISIxxoYgP3MdRWCtsIoi YqY0i1L1Hv9WIq87KS33 JV89mETib1H0tYR1 H6DdHVCojxrfygtpaHJ1 VIIkSGNmrR17Uq1xeHga Sf7pFSPmBTX2YOFjtYGz E5TsmM9yTbDuXILx WOHiE2IxbUJjFMibE127 KDzsTaC9GWGcqkKxD9Yd WJZxgIfxCuY8o5V0Nv0B SUskhtp2R0HxAlpb dHI+RE06HABgIE13gRKb eSDlq3hgiAv5EfOaPRSz OPW6tTolQByuw4PkRZWl Y28gjZNjs0N4MBMs bGx (more content not included)... [facility] Wound Care Noteon 07-08-2023 Wound Care Note [id number]# 1.00OTGTIFF Normal [facility] Wound Cultureon 07-03-2023 Wound Culture rt [...] <=0.5/9.5 Verified Vanc S 2 Verified Normal [facility] Comment on above: Performed By: #### [id number] ####[facility] (DEFAULT)[address] [place] [address] Ambulatory Patient Summaryon 06-26-2023 Ambulatory Patient Summary [address], [address] - Visit Summary For YRN RICARDO Age: 63 years Sex: MALE : 1960 Address: [address] [place] [address] [address] [place], [address] Home: Work: -- Primary Care Provider: LESLY MELCHOR MD Race: White Ethnicity: Not or Language: Citizen Of [place] Health Plan: 1?MEDICARE [facility], 2?MEDICAID [facility], 3?MEDICAID [facility] Reason for Visit: Three month follow [...] contact the [facility] 26/11 Crisis Hotline -Text 4HOPE to 482194. Follow-Up Information With: Address: When: KAREN ZAPATA, LESLY To [facility] [address] [place] [address]/ [address] [place] [id number] [phone] In 3 months Future Appointments [facility] Appt. Date: 09/25/2023 1:00 PM Scheduled Provider: Lesly Melchor MD [address] [place] [address] [place], [address] Future Orders No future orders Additional Goals [...] Dosin.000 kg Body Mass Index: 50.14 kg/m2 [place] Body Weight Calculated: 84.047 kg BSA Measured: [...] TABLET BY MOUTH ONCE DAILY nebulizer machine ([facility]) 0 refills [...] is caused (more content not included)... Normal [facility] Patient Handouton 06-26-2023 Patient Handout Infectious [...] and keep track of them. ? Take luyb-mqs-jjflrcr and prescription medicines only as told by your health care provider. ? If you were prescribed an antibiotic medicine, take or apply it as told by your health care provider. Do not stop (more content not included)... [facility] Outside Recordson 05-15-2023 Outside Records [id number] #1.00OTGTIFF [facility] Device InterrogationOrdered By: Rosalind Murrieta on 05-14-2023 [facility] Radiology Study observation (narrative) [facility] Ambulatory Patient Summaryon 03-26-2023 Ambulatory Patient Summary [address], [address] - Visit Summary For YRN RICARDO Age: 62 years Sex: MALE : 1960 Address: [address] [facility] [address] [place], [address] Home: Work: -- Primary Care Provider: KAREN ZAPATA, LESLY To Race: White Ethnicity: Not or Language: Citizen Of [place] Health Plan: 1?MEDICARE [facility], 2?MEDICAID [facility], 3?[facility] Reason for [...] the [facility] 26/11 Crisis Hotline -Text 4HMFT to 667105. Follow-Up Information With: Address: When: KAREN ZAPATA, LESLY To [facility] [address] [place] [address]/ [address] [place] [id number] In 3 months Future Appointments [facility] Appt. Date: 06/26/2023 9:30 AM Scheduled Provider: Lesly Melchor MD [address] [place] [address] [place], [address] Future Orders No future orders Additional Goals [...] 3 m2 Body Mass Index: 47.09 kg/m2 [place] Body Weight Calculated: 84.047 kg BSA Measured: [...] day anxiety, 0 refills authorized nebulizer machine ([facility]) 0 refills [...] Body mas (more content not included)... Normal [facility] Patient Handouton 03-26-2023 Patient Handout Nutrition [...] numbers. This can be done either in [place] or metric measurements. Note that charts and online BMI calculators are available to help you find your BMI quickly and easily without having to do these calculations yourself. To calculate your BMI in [place] measurements: 1. Measure your weight in [...] www.heart.org ? National Heart, Lung, and Blood Dawn: www.nhlbi.nih.gov Summary ? Body mass index (BMI) is a number that is calculated from a person's weight and height. ? BMI may help estimate how much of a person's weight is composed of fat. BMI can help identify those who may be at higher risk for certain medical problems. ? BMI can be measured using [place] measurements or metric measurements. ? BMI charts are used to identify whether you are underweight, normal weight, overweight, or obese. This information is not intended to replace advice given to you by your health care provider. Make sure you discuss any questions you have with your health care provider. Document Revised: 01/13/2020 Document Reviewed: 11/20/2019 [employer] Video Patient Education ? 2022 [employer]. [facility] Outside Recordson 03-25-2023 Outside Records [id number] [facility]23 Outside Records [id number] [facility] 03-13-2023 Outside Records [id number] #[facility] 02-11-2023 Outside Records [id number]# [facility].00[facility] P[facility] Glucose FingerstickOrder ed By: Serafin Shearer on 06-02-2019 Glucose [Mass/Vol] 70 mg/dL Low 75 - 110 mg/dL [employer] [facility]: Interpretation and review of laboratory results Abnormal [employer] [facility]: Glucose [Mass/Vol] 74 mg/dL Low 75 - 110 mg/dL [employer]: Interpretation and review of laboratory results Abnormal [employer] [facility]: Glucose [Mass/Vol] 64 mg/dL Low 75 - 110 mg/dL [employer]: Interpretation and review of laboratory results Abnormal [employer] Phone: Surgical PathologyOrdered By : Serafin Shearer on 06-02-2019 Surgical Pathology Report [id number] [facility] [address] [place] [address]. [place], [place] [address] SURGICAL PATHOLOGY CONSULTATION Patient Name: YRN RICARDO [facility] Rec: [id number] Path Number: [id number] Collected: 06/01/2019 Received: 06/01/2019 Reported: 06/02/2019 10:13 [...] with no areas of granularity or masses. [employer] sections 1[employer]. tm Microscopic Description Microscopic examination performed. [employer] [facility]: POC Glucose FingerstickOrder ed By: Serafin Shearer on 06-01-2019 Glucose [Mass/Vol] 91 mg/dL 75 - 110 mg/dL [employer] [facility]: Glucose [Mass/Vol] 96 mg/dL 75 - 110 mg/dL [employer] Phone: Surgical Pathologyon 020 Surgical Pathology (NOTE) [id number] [facility] [address] [place] [address]. [place], [place] [address] SURGICAL PATHOLOGY CONSULTATION Patient Name: YRN RICARDO [facility] Rec: [id number] Path Number: [id number] Collected: 06/01/2019 Received: 06/01/2019 Reported: 06/02/2019 10:13 [...] with no areas of granularity or masses. [employer] sections 1cs. tm Microscopic Description Microscopic examination performed. [facility] Comment on above: Performed By: #### P PPVS #### [facility] [address] [place] [address] Supply Chain Project Manager: Karl Klein MD Nicotineon 05-23-2019 9-GH-Swaadisk 3 ng/mL [facility] Comment on above: Performed By: #### C BC, PT, BMP #### [facility] [address] [place] [address] Supply Chain Project Manager: Karl Klein MD #### ANICOT #### [facility] [address] [place] [address] Supply Chain Project Manager: Cameron Calderon MD Cotinine 5 ng/mL [facility] Comment on above: Result Comment: (NOT E) Cotinine is the major metabolite of nicotine and is a biomarker of passive exposure when present at low concentrations. This result may reflect passive exposure to a nicotine-containing product. The half-life of cotinine is approximately 16 hours. Cotinine is metabolized to 2-EO-gcftnrho, which may persist for weeks after cessation from long-term or heavy use of nicotine products. Performed By: #### C BC, PT, BMP #### [facility] [address] [place] [address] Supply Chain Project Manager: Karl Klein MD #### ANICOT #### [facility] [address] [place] [address] Supply Chain Project Manager: Cameron Calderon MD Nicotine <2 [facility] Comment on above: Result Comment: (NOT [...] positive. Test developed and characteristics determined by [employer]. See Compliance Statement B: [employer]/ Performed by [facility], [address] [place] [address] [id number] [email or web address], Cameron Calderon MD, Lab. Director Performed By: #### C MARC VELARDE, BMP #### [facility] [address] [place] [address] Supply Chain Project Manager: Karl Klein MD #### EVELIO #### [facility] [address] [place] [address] Supply Chain Project Manager: Cameron Calderon MD Basic Metabolic Profon 05-19 (cont.) [facility] Comment on above: Result Comment: Aver age GFR for 50-59 years old: 93 mL/min/1.73sq m Chronic Kidney Disease: <60 mL/min/1.73sq m Kidney failure: <15 mL/min/1.73sq m eGFR calculated using average adult body mass. Additional eGFR calculator available at: http://www.[employer].com/multiple_crcl_2012.htm Performed By: #### C SYD PT, BMP #### [facility] [address] [place] [address] [id number] Supply Chain Project Manager: Karl Klein MD #### EVELIO #### [facility] [address] [place] [address] Supply Chain Project Manager: Cameron Calderon MD Anion gap [Moles/Vol] 14 mmol/L Normal 9-17 [facility] Comment on above: Performed By: #### Kenrick BC, PT, BMP #### [address] [address] Supply Chain Project Manager: Karl Klein MD #### ANICOT #### [facility] [address] [place] [address] Supply Chain Project Manager: Cameron Calderon MD Calcium [Mass/Vol] 9.7 mg/dL Normal 8.6-10.4 [facility] Comment on above: Performed By: #### C SYD, PT, BMP #### [address] [address] Supply Chain Project Manager: Karl Klein MD #### ANICOT #### [address] [id number] Supply Chain Project Manager: Cameron Calderon MD Chloride [Moles/Vol] 98 mmol/L Normal 98-107 [facility] Comment on above: Performed By: #### C SYD, PT, BMP #### [address] [address] Supply Chain Project Manager: Karl Klein MD #### ANICOT #### [facility] [address] [place] [address] Supply Chain Project Manager: Cameron Calderon MD CO2 [Moles/Vol] 25 mmol/L Normal 20-31 [facility] Comment on above: Performed By: #### C SYD, PT, BMP #### [address] [address] Supply Chain Project Manager: Karl Klein MD #### ANICOT #### [facility] [address] [place] [address] Supply Chain Project Manager: Cameron Calderon MD Creatinine [Mass/Vol] 1.28 mg/dL High 0.70-1.20 [facility] Comment on above: Performed By: #### Kenrick VELARDE, PT, BMP #### [address] [address] Supply Chain Project Manager: Karl Klein MD #### ANICOT #### [facility] [address] [place], [place] [id number] Supply Chain Project Manager: Cameron Calderon MD GFR, Amer >60 Normal >60 [facility] Comment on above: Performed By: #### Kenrick VELARDE, PT, BMP #### [address] [address] Supply Chain Project Manager: Karl Klein MD #### ANICOT #### [facility] [address] [id number] Supply Chain Project Manager: Cameron Calderon MD GFR,non Amer 58 mL/min Low >60 [facility] Comment on above: Performed By: #### Kenrick VELARDE, PT, BMP #### [address] [address] Supply Chain Project Manager: Karl Klein MD #### ANICOT #### [facility] [address] [place], [place] [id number] Supply Chain Project Manager: Cameron Calderon MD Glucose [Mass/Vol] 80 mg/dL Normal 70-99 [facility] Comment on above: Performed By: #### Kenrick VELARDE, PT, BMP #### [address] [address] Supply Chain Project Manager: Karl Klein MD #### ANICOT #### [facility] [address] [place], [place] [id number] Supply Chain Project Manager: Cameron Calderon MD Potassium [Moles/Vol] 4.6 mmol/L Normal 3.7-5.3 [facility] Comment on above: Performed By: #### C BC, PT, BMP #### [facility] [address] [place] [address] Supply Chain Project Manager: Karl Klein MD #### ANICOT #### [facility] [address] [place] [address] Supply Chain Project Manager: Cameron Calderon MD Sodium [Moles/Vol] 137 mmol/L Normal 135-144 [facility] Comment on above: Performed By: #### C BC, PT, BMP #### [facility] [address] [place] [address] Supply Chain Project Manager: Karl Klein MD #### ANICOT #### [facility] [address] [place], [place] [id number] Supply Chain Project Manager: Cameron Calderon MD Urea nitrogen [Mass/Vol] 23 mg/dL High 6-20 [facility] Comment on above: Performed By: #### C BC, PT, BMP #### [facility] [address] [place] [address] Supply Chain Project Manager: Karl Klein MD #### ANICOT #### [facility] [address] [place], [place] [id number] Supply Chain Project Manager: Cameron Calderon MD BUN/CRE Ratio NOT REPORTED Normal 9-20 [facility] Comment on above: Performed By: #### C BC, PT, BMP #### [facility] [address] [place] [address] Supply Chain Project Manager: Karl Klein MD #### ANICOT #### [facility] [address] [place], [place] [id number] Supply Chain Project Manager: Cameron Calderon MD Staging: NOT REPORTED Normal [facility] Comment on above: Performed By: #### C BC, PT, BMP #### [facility] [address] [place] [address] [phone] Supply Chain Project Manager: Karl Klein MD #### ANICOT #### [facility] [address] [place] [address] Supply Chain Project Manager: Cameron Calderon MD [facility] 05-19-2019 Erythrocyte distribution width (RBC) [Ratio] 16.0 % High 11.8-14.4 [facility] Comment on above: Performed By: #### Kenrick BC, PT, BMP #### [facility] [address] [place] [address] [phone] Supply Chain Project Manager: Karl Klein MD #### ANICOT #### [facility] [address] [place] [address] Supply Chain Project Manager: Cameron Calderon MD Hematocrit (Bld) [Volume fraction] 42.0 % Normal 40.7-50.3 [facility] Comment on above: Performed By: #### Kenrick VELARDE PT, BMP #### [address] [address] Supply Chain Project Manager: Karl Klein MD #### ANICOT #### [facility] [address] [place] [address] Supply Chain Project Manager: Cameron Calderon MD Hemoglobin (Bld) [Mass/Vol] 13.2 g/dL Normal 13.0-17.0 [facility] Comment on above: Performed By: #### Kenrick VELARDE, PT, BMP #### [facility] [address] [place] [address] [phone] Supply Chain Project Manager: Karl Klein MD #### ANICOT #### [facility] [address] [place] [address] Supply Chain Project Manager: Cameron Calderon MD MCH (RBC) [Entitic mass] 28.4 pg Normal 25.2-33.5 [facility] Comment on above: Performed By: #### Kenrick VELARDE, PT, BMP #### [address] [address] Supply Chain Project Manager: Karl Klein MD #### ANICOT #### [facility] [address] [place], [place] [id number] Supply Chain Project Manager: Cameron Calderon MD MCHC (RBC) [Mass/Vol] 31.4 g/dL Normal 28.4-34.8 [facility] Comment on above: Performed By: #### C BC, PT, BMP #### [address] [phone] Supply Chain Project Manager: Karl Klein MD #### ANICOT #### [address] [phone] Supply Chain Project Manager: Cameron Calderon MD MCV (RBC) [Entitic vol] 90.3 fL Normal 82.6-102.9 [facility] Comment on above: Performed By: #### Kenrick VELARDE, PT, BMP #### [address] [address] Supply Chain Project Manager: Karl Klein MD #### ANICOT #### [address] [phone] Supply Chain Project Manager: Cameron Calderon MD NRBC Automated 0.0 per 100 WBC Normal 0.0 [facility] Comment on above: Performed By: #### C BC, PT, BMP #### [address] [address] Supply Chain Project Manager: Karl Klein MD #### ANICOT #### [facility] [address] [place] [address] Supply Chain Project Manager: Cameron Calderon MD Platelet mean volume (Bld) [Entitic vol] 9.8 fL Normal 8.1-13.5 [facility] Comment on above: Performed By: #### C BC, PT, BMP #### [facility] [place] [address] Supply Chain Project Manager: Karl Klein MD #### ANICOT #### [facility] [address] [place], [place] [id number] Supply Chain Project Manager: Cameron Calderon MD Platelets (Bld) [#/Vol] 199 10*3/uL Normal 138-453 [facility] Comment on above: Performed By: #### C BC, PT, BMP #### [facility] [address] [place] [address] Supply Chain Project Manager: Karl Klein MD #### ANICOT #### [facility] [address] [place], [place] [phone] Supply Chain Project Manager: Cameron Calderon MD RBC (Bld) [#/Vol] 4.65 10*6/uL Normal 4.21-5.77 [facility] Comment on above: Performed By: #### C BC, PT, BMP #### [address] [address] Supply Chain Project Manager: Karl Klein MD #### ANICOT #### [facility] [address] [place], [place] [id number] Supply Chain Project Manager: Cameron Calderon MD WBC (Bld) [#/Vol] 6.7 10*3/uL Normal 3.5-11.3 [facility] Comment on above: Performed By: #### C BC, PT, BMP #### [address] [address] Supply Chain Project Manager: Karl Klein MD #### ANICOT #### [facility] [address] [place] [address] Supply Chain Project Manager: Cameron Calderon MD PTon 05-19-2019 INR Coag (PPP) [Relative time] 1.1 {INR} Normal [facility] Comment on above: Result Comment: Therapeutic Range: Moderate Anticoagulant Intensity: INR = 2.0-3.0 High Anticoagulant Intensity: INR = 2.5-3.5 Performed By: #### C BC, PT, BMP #### [facility] [address] [place] [address] Supply Chain Project Manager: Karl Klein MD #### ANICOT #### [facility] [address] [place] [address] Supply Chain Project Manager: Cameron Calderon MD PT Coag (PPP) [Time] 12.0 s Normal 9.0-12.0 [facility] Comment on above: Performed By: #### C BC, PT, BMP #### [facility] [address] [place] [address] Supply Chain Project Manager: Karl Klein MD #### ANICOT #### [facility] [address] [place] [address] Supply Chain Project Manager: Cameron Calderon MD XR CHEST (2 [...] Shawanda Aragon MD 05/19/19 Final result Normal [facility] XR CHEST STANDARD (2 VW)Orde red By: Serafin Shearer on 05-19-2019 Negative chest. [facility] Work Phone: EXAMINATION: TWO XRAY VIEWS OF THE CHEST 05/19/2019 11:41 am COMPARISON: None. HISTORY: ORDERING SYSTEM PROVIDED HISTORY: preop sleeve gastrectomy Reason for Exam: Preop 06/01/19. no chest complaints Type of Exam: Initial FINDINGS: The lungs are without acute focal process. No effusion or pneumothorax. The cardiomediastinal silhouette is normal. The osseous structures are intact without acute process. [facility] Work Phone: Car, Mh[employer] Incoming Radiant Results From [employer] - 05/19/2019 11:50 AM EST EXAMINATION: TWO [...] intact without acute process. IMPRESSION: Negative chest. [employer] Phone: Vital Signs Date Time Vital Sign Value Performing Clinician Faci lity 05-14-2023 11:28-0500 Body height 190.5 cm Olaf Sheae r ENGAGEMENT MGR-BACCARAT MANAGER Work Phone: [facility] 05-14-2023 11:28-0500 Body mass index (BMI) [Ratio] 48.25 kg/m2 Olaf Sheaer ENGAGEMENT MGR-BACCARAT MANAGER Work Phone: [facility] 05-14-2023 11:28-0500 Body weight 175.09 kg Olaf Sheae r ENGAGEMENT MGR-BACCARAT MANAGER Work Phone: [facility] 05-14-2023 11:28-0500 Diastolic blood pressure 80 mm[Hg] Olaf Cain ENGAGEMENT MGR-BACCARAT MANAGER Work Phone: [facility] 05-14-2023 11:28-0500 Heart rate 61 /min Olaf Sheae r ENGAGEMENT MGR-BACCARAT MANAGER Work Phone: [facility] 05-14-2023 11:28-0500 SaO2% (BldA) [Mass fraction] 95 % Olaf Sheaer ENGAGEMENT MGR-BACCARAT MANAGER Work Phone: [facility] 05-14-2023 11:28-0500 Systolic blood pressure 116 mm[Hg] Olaf Cain ENGAGEMENT MGR-BACCARAT MANAGER Work Phone: [facility] 06-02-2019 07:15-0500 Body temperature 99.3 [degF] Serafin Shearer MD Work Phone: [facility] Work Phone: 06-02-2019 07:15-0500 Diastolic blood pressure 59 mm[Hg] Serafin Shearer MD Work Phone: [facility] Work Phone: 06-02-2019 07:15-0500 Heart rate 62 /min Serafin Shearer MD Work Phone: [facility] Work Phone: 06-02-2019 07:15-0500 Respiratory rate 16 /min Serafin Shearer MD Work Phone: [facility] Work Phone: 06-02-2019 07:15-0500 SaO2% (BldA) [Mass fraction] 95 % Serafin Shearer MD Work Phone: [facility] Work Phone: 06-02-2019 07:15-0500 Systolic blood pressure 116 mm[Hg] Serafin Shearer MD Work Phone: [facility] Work Phone: 06-01-2019 09:10-0500 Body height 190.5 cm Serafin Shearer MD Work Phone: [facility] Work Phone: 06-01-2019 09:10-0500 Body mass index (BMI) [Ratio] 53.24 kg/m2 Serafin Shearer MD Work Phone: [facility] Work Phone: 06-01-2019 09:10-0500 Body weight 193.2 kg Serafin Shearer MD Work Phone: [facility] Work Phone: Encounters Encounter Date Encounter Type Care Provider Facility Start: 01-07-2024 ambulatory Melo Reno acility:[facility] Start: 12-24-2023 End: 12-24-2023 ambulatory LESLY MELCHOR MD Facility:[facility] Start: 12-11-2023 End: 12-11-2023 ambulatory Veda Barnhart Facility:[facility] Start: 11-22-2023 End: 11-22-2023 ambulatory Srinivas R Dolce Facility:[facility] Start: 11-15-2023 End: 11-15-2023 ambulatory Srinivas R Dolce Facility:[facility] Start: 10-25-2023 End: 10-25-2023 ambulatory Srinivas R Dolce Facility:[facility] Start: 10-17-2023 End: 10-17-2023 ambulatory PA Kelley Redmond Facility:[facility] Start: 10-10-2023 End: 10-10-2023 ambulatory PA Kelley Redmond Facility:[facility] Start: 10-04-2023 ambulatory Srinivas R Dolce Facility :[facility] Start: 10-02-2023 ambulatory Srinivas R Dolce Facility :[facility] Start: 09-26-2023 End: 09-26-2023 ambulatory PA Kelley Redmond Facility:[facility] Start: 09-25-2023 End: 09-25-2023 ambulatory ELSLY MELCHOR MD Facility:[facility] Start: 09-16-2023 End: 09-16-2023 ambulatory Srinivas R Dolce Facility:[facility] Start: 09-10-2023 End: 09-10-2023 ambulatory PA Kelley Redmond Facility:[facility] Start: 09-02-2023 End: 09-02-2023 ambulatory Srinivas R Dolce Facility:[facility] Start: 08-26-2023 End: 08-26-2023 ambulatory Srinivas R Dolce Facility:[facility] Start: 08-19-2023 End: 08-19-2023 ambulatory Srinivas R Dolce Facility:[facility] Start: 08-15-2023 End: 08-15-2023 ambulatory PA Kelley Redmond Facility:[facility] Start: 08-08-2023 End: 08-08-2023 ambulatory PA Kelley Ruy Facility:[facility] Start: 08-01-2023 End: 08-01-2023 ambulatory PA Kelley Redmond Facility:[facility] Start: 07-26-2023 End: 07-26-2023 ambulatory Srinivas R Dolce Facility:[facility] Start: 07-24-2023 End: 07-24-2023 ambulatory Srinivas R Dolce Facility:[facility] Start: 07-24-2023 End: 07-24-2023 ambulatory Srinivas R Dolce Facility:[facility] Start: 07-19-2023 End: 07-19-2023 ambulatory LESLY MELCHOR MD Facility:[facility] Start: 07-19-2023 End: 07-19-2023 ambulatory Srinivas R Dolce Facility:[facility] Start: 07-15-2023 End: 07-15-2023 ambulatory Srinivas R Dolce Facility:[facility] Start: 07-12-2023 End: 07-12-2023 ambulatory Srinivas R Dolce Facility:[facility] Start: 07-10-2023 End: 07-10-2023 ambulatory Srinivas R Dolce Facility:[facility] Start: 07-05-2023 End: 07-05-2023 ambulatory Srinivas R Dolce Facility:[facility] Start: 07-01-2023 End: 07-01-2023 ambulatory Srinivas R Dolce Facility:[facility] Start: 06-26-2023 End: 06-26-2023 ambulatory LESLY MELCHOR MD Facility:[facility] Start: 05-14-2023 End: 05-14-2023 Office outpatient visit 15 minutes Olaf GOOD Work Phone: [facility] Comment on above: Cardiac pacemaker (P rimary Dx); Morbid obesity with BMI of 40.0-44.9, adult ([facility]); Complete heart block ([facility]) Start: 05-14-2023 End: 05-14-2023 Clinical Support Ppc Pacer [facility] Comment on above: Cardiac pacemaker (P rimary Dx) Start: 03-26-2023 End: 03-26-2023 ambulatory LESLY MELCHOR MD Facility:[facility] Start: 02-10-2021 End: 02-11-2021 ambulatory CONSUELO DENNISATUL [facility] Start: 02-10-2021 End: 02-10-2021 Subsequent hospital visit by physician [facility] Comment on above: History of pulmonary embolism; Hx of deep venous thrombosis Start: 06-01-2019 End: 06-02-2019 Evaluation and management of inpatient SERAFIN SHEARER [facility] Start: 06-01-2019 End: 06-02-2019 Evaluation and management of inpatient Serafin Shearer MD Work Phone: [address] Ortho/Med Surg Comment on above: S/P laparoscopic sle ramon gastrectomy (Primary Dx) Start: 05-19-2019 End: 2019 Patient encounter procedure SERAFIN SHEARER [facility] Start: 05-19-2019 End: 05-21-2019 Subsequent hospital visit by physician Christian [address] [facility] Radiology Comment on above: Arrived Procedures [...] OR/PROCEDURAL) SERAFIN SHEARER Start: 06-01-2019 TRANSFER PATIENT ESRAFIN SHEARER Start: 06-01-2019 Level iv surg pathology [...] years Vaccine (2 of 2 - PPSV23) [facility] Phone: Start: 12-30-2025 Lipid panel Lipid screen [facility] Phone: Start: 05-14-2024 Adult BMI Screening [facility] Start: 05-14-2024 [facility] Start: 07-30-2023 Lipid screen Lipid screen [facility] Phone: Start: 12-30-2021 Creatinine measurement Creatinine mo nitoring [facility] [facility] Phone: Start: 12-30-2021 Potassium monitoring Potassium monit oring [facility] [facility] Phone: Start: 12-30-2021 Thyroid stimulating hormone measurement TSH testing [facility] [facility] Phone: Start: 08-29-2021 End: 08-29-2021 Patient encounter procedure 08/29/2021 Office Visit Oncology Consuelo Delgadillo MD [address] [place] [address] [facility] Start: 03-24-2021 End: 03-24-2021 Patient encounter procedure 03/24/2021 Office Visit Pulmonology Teddy Fam MD [address] [address] [facility] Start: 02-14-2021 End: 02-14-2021 Patient encounter procedure 02/14/2021 Office Visit Bariatrics Mary Lou Power, ENGAGEMENT MGR - BACCARAT MANAGER [address] [place] [phone] [facility] Start: 01-04-2021 Influenza vaccination Flu vaccine (# 1) [facility] Phone: Start: 05-19-2020 Creatinine monitoring Creatinine mon itoring [facility] Phone: Start: 05-19-2020 Potassium monitoring Potassium monit oring [facility] Phone: Start: 07-30-2019 TSH testing TSH testing [facility] Phone: Start: 06-12-2019 End: 06-12-2019 Patient encounter procedure 06/12/2019 Office Visit Pulmonology Teddy Fam MD [address] [id number] [facility] Start: 06-09-2019 End: 06-09-2019 Patient encounter procedure 06/09/2019 Office Visit Bariatrics Serafin Shearer MD [address] [place] [address] [facility] Invasive Bariatric Surg Start: 06-01-2019 End: 06-01-2019 Admission to same day surgery center 06/01/2019 Surgery IP Unit Serafin Shearer MD [address] [place] [address] XI ROBOTIC LAPAROSCOPIC GASTRECTOMY SLEEVE, ENDOSEAL [facility] Comment on above: XI ROBOTIC LAPAROSCO PIC GASTRECTOMY SLEEVE, ENDOSEAL Start: 06-01-2019 Subsequent hospital visit by physician 06/01/2019 Hospital Encounter IP Unit Serafin Shearer MD [address] [place] [address] [facility] Start: 03-06-2019 Annual Wellness Visi t (AWV) Annual Wellness Visit (AWV) [facility] Phone: Start: 2012 Administration of varicella zoster vaccine Zoster (Shingles) Vaccine (1 of 2) [facility] Start: 2012 Colon cancer screen colonoscopy Colon cancer screen colonoscopy [facility] Phone: Start: 2012 Shingles Vaccine (1 of 2) Shingles Vaccine (1 of 2) [facility] Phone: Start: 2007 Screening for malign ant neoplasm of colon Colon cancer screen colonoscopy [facility] Phone: Start: 1981 DTaP,Tdap and Td Vaccines (1 - Tdap) DTaP,Tdap and Td Vaccines (1 - Tdap) [facility] Start: 1981 DTaP/Tdap/Td vaccine (1 - Tdap) DTaP/Tdap/Td vaccine (1 - Tdap) [facility] Phone: Start: 1980 Adult BMI Follow Up Plan Adult BMI Follow Up Plan [facility] Last Guide [facility] Start: 1977 HIV screen HIV screen [facility] Work Phone: Start: 1977 HIV screening HIV screen [facility] Work Phone: Start: 1974 Depression Screening Depression Scre ening [facility] [employer] Start: 1973 DTaP/Tdap/Td vaccine (1 - Tdap) DTaP/Tdap/Td vaccine (1 - Tdap) [facility] Phone: Start: 1962 Hepatitis C screen Hepatitis C scree n [facility] Phone: Start: 1962 Hepatitis C screening Hepatitis C sc reen [facility] Phone: Start: 1962 Tobacco Counseling Tobacco Counselin g [facility] Last Guide [facility] Home BIPAP or CPAP Home BIPAP or CPAP Respiratory Care Routine Daily until discontinued starting 06/01/2019 [employer] Phone: Comment on above: Daily until disconti nued starting 06/01/2019 Initiate Oxygen Ther apy Protocol Initiate Oxygen Therapy Protocol Respiratory Care Routine Daily until discontinued starting 06/01/2019 [employer] Phone: Comment on above: Daily until disconti nued starting 06/01/2019 Surgical Pathology Surgical Path ology Lab Routine ONE TIME for 1 Occurrences starting 06/01/2019 [employer] Phone: Comment on above: ONE TIME for 1 Occur rences starting 06/01/2019 Immunizations Immunization Date Immunization Notes Care Provider Bhavna lynch 12-16-2013 pneumococcal polysaccharide vaccine, 23 valent Stv 2 [facility] Payers Date Payer Category Payer Self-pay 2019 Unknown [employer] D UAL BENEFITS [employer] DUAL xxxxxxxxxxx 2019-Present [address] [place] [address] xxxxxxxxxxx [id number] 2018 Medicaid [place] [facility] MED[facility]ID [id number] 2018-Present [phone] [address] [place] [address] [id number] 2018 Medicaid [id number] 2018 Medicare [place] [facility] [id number] 2018-Present [phone] [address] [place] [address] [id number]. [id number] 2018 Unknown [id number] 1962 Unknown [id number] 2.16.840.1.978536.3.579.2.175 1962 Unknown [id number] 2.16.840.1.881656.3.579.2.175 1962 Unknown [id number] 2.16.840.1.951171.3.579.2.175 1962 Unknown [id number] 2.16.840.1.465539.3.579.2.176 1962 Unknown [id number] 2.16.840.1.753809.3.579.2.1286 1962 Unknown [id number] 2.16.840.1.504443.3.579.2.128 1962 Unknown [id number] 2.16.840.1.811464.3.579.2. 1962 Unknown [id number] 2.16.840.1.973909.3.579.2. 1962 Unknown [id number] 2.16.840.1.393715.3.579.2. 1962 Unknown [id number] 2.16.840.1.481695.3.579.2. 1962 Unknown [id number] 2.16.840.1.905417.3.579.2. 1962 Unknown [id number] 2.16.840.1.138790.3.579.2. 1962 Unknown [id number] 2.16.840.1.669200.3.579.2. 1962 Unknown [id number] 2.16.840.1.715233.3.579.2. 1962 Unknown [id number] 2.16.840.1.535618.3.579.2. 1962 Unknown [id number] 2.16.840.1.624032.3.579.2. 1962 Unknown [id number] 2.16.840.1.339741.3.579.2. 1962 Unknown [id number] 2.16.840.1.022231.3.579.2. 1962 Unknown [id number] 2.16.840.1.247162.3.579.2. 1962 Unknown [id number] 2.16.840.1.493011.3.579.2. 1962 Unknown [id number] 2.16.840.1.389856.3.579.2. 1962 Unknown [id number] 2.16.840.1.421989.3.579.2. 1962 Unknown [id number] 2.16.840.1.685396.3.579.2. 1962 Unknown [id number] 2.16.840.1.871952.3.579.2. 1962 Unknown [id number] 2.16.840.1.156447.3.579.2. 1962 Unknown [id number] 2.16.840.1.793935.3.579.2. 1962 Unknown [id number] 2.16.840.1.827774.3.579.2. 1962 Unknown [id number] 2.16.840.1.088901.3.579.2. 1962 Unknown [id number] 2.16.840.1.341757.3.579.2. 1962 Unknown [id number] 2.16.840.1.240923.3.579.2. 1962 Unknown [id number] 2.16.840.1.782716.3.579.2. 1962 Unknown [id number] 2.16.840.1.792542.3.579.2. 1962 Unknown [id number] 2.16.840.1.682750.3.579.2. 1962 Unknown [id number] 2.16.840.1.960955.3.579.2. 1962 Unknown [id number] 2.16.840.1.302435.3.579.2.718 1962 Unknown [id number] 2.16.840.1.821176.3.579.2.8 1962 Unknown [id number] 2.16.840.1.242217.3.579.2.8 1962 Unknown [id number] 2.16.840.1.229072.3.579.2.8 1962 Unknown [id number] 2.16.840.1.289314.3.579.2.8 1962 Unknown [id number] 2.16.840.1.057380.3.579.2.8 1962 Unknown [id number] 2.16.840.1.463341.3.579.2. 1962 Unknown [id number] 2.16.840.1.341321.3.579.2.8 1962 Unknown [id number] 2.16.840.1.032237.3.579.2.718 Unknown [id number] 2.16.840.1.078276.3.579.2.531 Social History Date Type Detail Facility Start: 02-08-2021 End: 04-18-2022 Tobacco smoking status [facility] Never smoker [facility] Start: 02-08-2021 Tobacco use and exposure Former user [employer] Phone: End: 01-17-2021 History of tobacco use Chews Tobacco [facility] Phone: Start: 02-08-2021 End: 05-14-2023 Alcohol intake Ex-drinker (finding) [employer] [facility] Phone: Start: 07-25-2018 History SDOH Alcohol Frequency 1 [employer] [facility] Phone: Start: 1960 Sex Assigned At Not on file [facility] Phone: Start: 04-18-2022 Tobacco use and exposure User of smokeless tobacco [facility] Last Guide [facility] Start: 06-16-2020 End: 05-14-2023 [facility] Start: 06-16-2020 End: 05-14-2023 Tobacco use panel [facility] Last Guide [facility] Housing Instability Unknown [facility] Last Guide System Medical Equipment Procedure Code Equipment Code Equipment Origin al Text Equipment Identifier Dates Ld Pcng Ingevity + 52cm Mri - [id number] - [id number] Start: 08-25-2020 Cardiac pacemaker, device (physical object) ([id number]) Pcmkr Accolade Mri Dr Cade - [id number] - [id number] Start: 08-25-2020 Goals Date Patient Goal Desired Activity /State Personal health goal Comment on above: Formatting of this n ote might be different from the original. Evaluation of progress towards goal: home self care Clinical Notes 06-02-2019 to 12-17-2023 [facility] 05/14/2023 11:30 AM Juanita Hopper MD - 05/14/2023 11:00 AM Starr Sanon RN - 06/02/2019 7:24 AM Serafin Jesus MD - 06/02/2019 6:43 AM EST Note Date & Type Note Facility 12-17-2023 Note Entered by Yousuf Pierce CMA on December 17, 2023 09:09:22 EDT From: Ana Pierce CMA To: [facility] Sent: 12/17/2023 09:09:22 EDT Subject: Medication Management Approved with modifications: Durable Medical Equipment for Prescription (CETIRIZINE 10MG TAB 10 Tablet) TAKE 1 TABLET BY MOUTH EVERY DAY Qty: 30 tab(s) Days Supply: 30 Refills: 10 Substitutions Allowed Route To Pharmacy - [facility] Signed by Ana Pierce CMA --------- From: [facility] To: [...] 10 Substitutions Allowed Notes from Pharmacy: --------- [facility] 11-18-2023 Note Entered by Yousuf Pierce CMA on November 18, 2023 07:43:49 EDT From: Ana Pierce CMA To: [facility] Sent: 11/18/2023 07:43:49 EDT Subject: Medication Management Submitted: Complete:rivaroxaban (Xarelto 20 mg oral tablet) Signed by Ana Pierce CMA 11/18/2023 07:43:00 EDT Approved with modifications: rivaroxaban (XARELTO 20 MG TABLET 20 Tablet) TAKE 1 TABLET BY MOUTH IN THE EVENING WITH MEALS Qty: 30 tab(s) Days Supply: 30 Refills: 10 Substitutions Allowed Route To Pharmacy - [facility] Signed by Ana Pierce CMA Patient matched by Ana Pierce CMA on 11/18/2023 07:43:20 EDT --------- From: [facility] To: KAREN ZAPATA, LESLY To MD Sent: November 15, 2023 5:11:03 PM CDT Subject: Medication Management Due: November 16, 2023 12:10:53 AM CDT On Hold Pending Signature Dispensed Drug: rivaroxaban (Xarelto 20 mg oral tablet), TAKE 1 TABLET BY MOUTH IN THE EVENING WITH MEALS Quantity: 30 tab(s) Days Supply: 30 Refills: 10 Substitutions Allowed Notes from Pharmacy: --------- [facility] 10-17-2023 Note Entered by Yousuf Pierce on October 17, 2023 07:43:22 EDT From: Ana Pierce To: [facility] Sent: 10/17/2023 07:43:22 EDT Subject: Medication Management Submitted: Complete:levothyroxine (levothyroxine 150 mcg (0.15 mg) oral tablet) Signed by Ana Pierce 10/17/2023 07:43:00 EDT Approved with modifications: levothyroxine (LEVOTHYROXINE 150MCG TAB 150 Tablet) TAKE 1 TABLET BY MOUTH ONCE DAILY Qty: 30 tab(s) Days Supply: 30 Refills: 10 Substitutions Allowed Route To Pharmacy - [facility] Signed by Ana Pierce --------- From: [facility] To: KAREN ZAPATA, LESLY To [...] 10 Substitutions Allowed Notes from Pharmacy: --------- [facility] 07-24-2023 Note CLINICAL DATA: Venou s [...] Signature): Romulo Wright 07/24/23 10:38 a Technologist: [facility] 07-08-2023 Note Entered by Yousuf Pierce on July 08, 2023 07:59:35 EST From: Ana Pierce To: [facility] Sent: 07/08/2023 07:59:35 EST Subject: Medication Management Not Approved: now on pulmicort fluticasone (FLUTICASONE PROP HFA 110MCG 110 Aerosol) INHALE 2 PUFFS BY MOUTH TWICE DAILY *RINSE MOUTH AFTER USE* Qty: 12 gm Days Supply: 30 Refills: 10 Substitutions Allowed Route To Pharmacy - [facility] Signed by Ana Pierce --------- From: [facility] To: KAREN ZAPATA, LESLY To MD Sent: July 05, 2023 4:32:01 PM RESEARCH TECH Subject: Medication Management Due: July 06, 2023 12:09:30 AM RESEARCH TECH On Hold Pending Signature Drug: fluticasone (Flovent [...] 10 Substitutions Allowed Notes from Pharmacy: --------- [facility] 05-28-2023 Note Entered by Yousuf Pierce on May 28, 2023 07:49:21 EST From: Ana Pierce To: [facility] Sent: 05/28/2023 07:49:21 EST Subject: Medication Management Submitted: Complete:oxyBUTYnin (oxybutynin 10 mg/24 hr oral tablet, extended release) Signed by Ana Pierce 05/28/2023 07:49:00 EST Approved with modifications: oxyBUTYnin (OXYBUTYNIN ER 10MG TAB 10 Tablet) TAKE 1 TABLET BY MOUTH DAILY Qty: 30 tab(s) Days Supply: 30 Refills: 10 Substitutions Allowed Route To Pharmacy - [facility] Signed by Ana Pierce --------- From: [facility] To: KAREN ZAPATA, LESLY To MD Sent: May 27, 2023 5:22:40 PM RESEARCH TECH Subject: Medication Management Due: May 28, 2023 12:05:03 AM RESEARCH TECH On Hold Pending Signature Drug: oxyBUTYnin (oxybutynin 10 mg/24 hr oral tablet, extended release), 1 tab(s) PO Daily Quantity: 30 tab(s) Days Supply: 0 Refills: 10 Substitutions Allowed Notes from Pharmacy: Dispensed Drug: oxyBUTYnin (oxybutynin 10 mg/24 hr oral tablet, extended release), TAKE 1 TABLET BY MOUTH DAILY Quantity: 30 tab(s) Days Supply: 30 Refills: 10 Substitutions Allowed Notes from Pharmacy: --------- [facility] 05-14-2023 History of Present illness Narrative Yrn Delgado Ircardo Date of visit: 05/14/2023 Date of : 1960 Age: 62 y.o. Patient Active Problem List Diagnosis Complete heart block ([facility]) Abnormal stress test Cardiac pacemaker Morbid obesity with BMI of 40.0-44.9, adult ([facility]) Bilateral primary osteoarthritis of knee Blister of [...] PE, chronic lymphedema, complete heart block s/p [place] dual-chamber pacemaker implanted 2020. He is here today for routine evaluation. Patient states he has been doing well since last office visit. He denies chest pain, shortness of breath, palpitations, fatigue. Patient enjoys fishing with his grandson. Past Medical History: Diagnosis Date Anxiety COPD (chronic obstructive pulmonary disease) ([facility]) Depression Hypertension Hypothyroidism Sleep apnea No data recorded No data recorded No data recorded Past Surgical History: Procedure Laterality Date Cardiac catheterization N/A 08/23/2020 Performed by Brian Hilario MD at [facility] Coronary angiogram and left ventricular gram/pressure N/A 08/23/2020 Performed by Brian Hilario MD at [facility] EP - Device-PPM Left 08/25/2020 Performed by Alexander Hopper MD at [facility] (EP) HAND RECONSTRUCTION Left SLEEVE GASTROPLASTY 05/2019 [...] Morbid obesity with BMI of 40.0-44.9, adult ([facility]) 3. Complete heart block ([facility]) Intermittent complete heart block s/p [place] [employer] dual-chamber pacemaker implanted 2020 Device check [...] MD Referring Physician: Lesly Melchor MD [address] [place] [address] LATISHA Harman 05/14/23 1202 documented in this encounter [facility] 05-14-2023 History of Present illness Narrative I agree with the findings in the scanned document. documented in this encounter [facility] 06-02-2019 History of Present [...] Intake/Output Summary (Last 24 hours) at 06/02/2019 0628 Last data filed at 06/02/2019 0457 Gross [...] NICHOLS 1:03 PM documented in this encounter [facility] [facility]: Evaluation note Diagnosis History of pulmonary embolism Personal history of pulmonary embolism Hx of deep venous thrombosis Personal history of venous thrombosis and embolism documented in this encounter [employer] [facility]: evaluation note* Diagnosis S/P laparoscopic sleeve gastrectomy- Primary documented in this encounter [employer] [facility]: evaluation note* Diagnosis Cardiac pacemaker- Primary Cardiac pacemaker in situ Morbid obesity with BMI of 40.0-44.9, adult (CMS-HCC) Complete heart block (CMS-HCC) Atrioventricular block, complete documented in this encounter [facility] SystemEvaluation note* Diagnosis Cardiac pacemaker- Primary Cardiac pacemaker in situ documented in this encounter [facility]* Stewart Golden DO - 06/02/2019 Discharge Instructions for Bariatric Surgery You had a Laparoscopic Sleeve Gastrectomy (57990) to treat obesity. Recovery from this surgery [...] scheduled appointment, please call the office at [phone]. Call Your Doctor If Any of the [...] sent through Care Everywhere. * Enoxaparin (Lovenox) (Citizen [place]) * enoxaparin (Citizen [place]) documented in this encounterLet's Talk Phone: InstructionsNot on filedocumented in this encounter [facility] SystemInstructionsNot on filedocumented in this encounter [facility] Summary Purpose Family History No Family History Records FoundNo Family History Records FoundNo Family History Records FoundNo Family History Records FoundNo Family History Records Found Advance Directives No Advanced Directives Records FoundDocuments on File Type Date Recorded Patient Government Employee Expl anation ACP-Advance Directive ACP-Power of Steel Placer Latest Code Status on File Code Status Date Activated Date Inactivated Comments Full Code 06/01/2019 12:33 PM 06/02/2019 3:05 PM Documents on File Type Date Recorded Patient Government Employee Expl anation Advance Directives and Living Will Power of Steel Placer Documents on File Type Date Recorded Patient Government Employee Expl anation Advance Directives and Living Will Power of Steel Placer Latest Code Status on File Code Status Date Activated Date Inactivated Comments Full Code 06/01/2019 12:33 PM Reason for Referral Status Reason Specialty Diagnoses / Procedures Referred By Contact Referred To Contact Pending Review Radiology Diagnoses History of pulmonary embolism Hx of deep venous thrombosis Procedures VL DUP LOWER EXTREMITY VENOUS BILATERAL Consuelo Delgadillo MD [address] [place] [address] Specialty Diagnoses / Procedures Referred By Contac t Referred To Contact Diagnoses Cardiac pacemaker Procedures Device Interrogation KatyhristOlaf dalton, ENGAGEMENT MGR-BACCARAT MANAGER [address] [place] [address] Referral ID Status Reason Start Date Expiration Date V isits Requested Visits Authorized [id number] Pending Review 05/14/2023 05/13/2024 1 1 Additional Source Comments (unrecognized sect ion and content) No Status Records FoundNo Status Records FoundNo Status Records FoundNo Status Records FoundNo Status Records Found INFORMATION SOURCE (unrecogn ized section and content) DATE CREATED AUTHOR 07/14/2019 [facility] DATE CREATED AUTHOR AUTHOR'S ORGANIZ ATION 02/11/2021 [facility] DATE CREATED AUTHOR AUTHOR'S ORGANIZ ATION 05/19/2023 [facility] DATE CREATED AUTHOR AUTHOR'S ORGANIZ ATION 01/07/2024 [facility] DATE CREATED AUTHOR AUTHOR'S ORGANIZ ATION 01/19/2024 [facility] Reason for Visit (unrecogniz ed section and content) Status Reason Specialty Diagnoses / Procedures Referred By Contact Referred To Contact Pending Review Radiology Diagnoses History of pulmonary embolism Hx of deep venous thrombosis Procedures VL DUP LOWER EXTREMITY VENOUS BILATERAL Consuelo Delgadillo MD [address] [place] [address] Status Reason Specialty Diagnoses / Procedures Referre d By Contact Referred To Contact Diagnoses Obesity OBESITY, HYPERTENSION, COPD, HYPOTHYROIDISM, LIPODEMIA Procedures VA LAP, DHARMESH RESTRICT PROC, LONGITUDINAL GASTRECTOMY XI ROBOTIC LAPAROSCOPIC GASTRECTOMY SLEEVE, ENDOSEAL Serafin Shearer MD [address] [place] [address] [facility] Reason Comments Device Check Reason Comments Device Check Care Teams (unrecognized sec tion and content) Pattern Carrier Relationship Specialty Start Date End Date Lesly Melchor MD [address] [place] [id number] PCP - General 02/10/16 Pattern Carrier Relationship Specialty Start Date End Date Lesly Melchor MD [address] [place] [id number] PCP - General 02/10/16 FOR RECORDS PERTAINING [...] BE BASED ON THE PRIMARY CLINICAL RECORDS. [facility] [employer] [facility]. provides no warranty or guarantee of the accuracy or completeness of information in this document.
--- NOTE | 2024-02-05 15:49 | P.DS_ITS ---
Discharge Plan Discharge Disposition: Home, Self-Care Outpatient Diagnostics: VC INJ Foam Sclerosant WUS MANAGER NON PROFIT (Routine) Timeframe: 2 Months Facility: [facility] - Location: [facility] Ordered By: Trino Israel Plan of Treatment: Varithena/microfoam of left leg Print Language: Amharic Discharge Date/Time: 02/05/24 15:50
--- NOTE | 2024-02-05 15:49 | W.VEIN ---
Discharge Plan Discharge Disposition: Home, Self-Care Outpatient Diagnostics: VC INJ Foam Sclerosant WUS TERMINAL GAUGER (Routine) Timeframe: 2 Months Facility: [facility] - Location: Vein Center Ordered By: Trino Israel Plan of Treatment: Varithena/microfoam of left leg Print Language: Latvian Discharge Date/Time: 02/05/24 15:50
== END 2024-02-05 15:50 | disposition home or self-care (01) ==
PROVIDERS: PCP Radiology Diagnostic Radiology; Visit Provider Radiology Diagnostic Radiology
DX: I80.01 Phlebitis and thrombophlebitis of superficial vessels of right lower extremity (principal)
CPT/HCPCS: 93971; G0463

== ENCOUNTER 2024-02-21 12:31 | Outpatient (OUT) | payer MEDICARE, MEDICAID, SELFPAY ==
--- NOTE | 2024-02-20 09:39 | VEINCLINIC_ITS ---
Vital Signs 02/21/24 12:40 BP 114/60 BP Location Right Brachial BP Position Sitting BP Cuff Size Adult BP Source Manual Cuff Respiration 20 Pulse 80 Pulse Source Monitor Pulse Oximetry (%) 99 Oxygen Delivery Method Room Air Varicose Veins Patient in today for microfoam chemical ablation left leg ITrino MD personally performed the services described in this documentation, as scribed by Wild Slade RN in my presence and it is both accurate and complete. I, Wild Slade RN, am scribing for, and in the presence of, Dr. Trino Israel and in the presence of the patient. medial thigh: bilateral, knee: bilateral, calf: bilateral, ankle: bilateral and munoz: bilateral burning and sharp 6 11 years Worsened in recent months: Yes standing and sitting bed rest, elevating extremities and compression stockings Reports heaviness, edema and leg edema History of lower extremity trauma: No Superficial thrombophlebitis: No Family history of varicose veins: unknown Has patient had previous lower extremity venous surgery: No Patient has previously received the following treatment(s) for lower extremity varicose veins: Reports none Does patient have a history of : not applicable Does patient intend to have future pregnancies: not applicable Has patient had lower extremity venous scan with relux testing: Yes Support hose used: Yes Problems walking or doing physical activity: Yes How does it affect you: 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 Do you walk much: Yes Do you stand much: Yes Medication compliance: good Large amounts of Vitamin K: No PFSH PFSH Medical History (Updated 12/31/23 @ 14:44 by Wild Slade) Thrombophlebitis of superficial veins of left lower extremity ?I80.02 - Phlebitis and thrombophlebitis of superficial vessels of left lower extremity (ICD-10) Phlebitis and thrombophlebitis of superficial vessels of lower extremities, bilateral ?I80.03 - Phlebitis and thrombophlebitis of superficial vessels of lower extremities, bilateral (ICD-10) Phlebitis and thrombophlebitis of superficial vessels of right lower extremity ?I80.01 - Phlebitis and thrombophlebitis of superficial vessels of right lower extremity (ICD-10) Non-healing lumpectomy wound ?T81.89XA - Other complications of procedures, not elsewhere classified, initial encounter (ICD-10) Other reconstructive surgery as the cause of abnormal reaction of the patient, or of later complication, without mention of misadventure at the time of the procedure ?Y83.4 - Other reconstructive surgery as the cause of abnormal reaction of the patient, or of later complication, without mention of misadventure at the time of the procedure (ICD-10) Cubital tunnel syndrome ?G56.20 - Lesion of ulnar nerve, unspecified upper limb (ICD-10) Pacemaker ?Z95.0 - Presence of cardiac pacemaker (ICD-10) Obesity ?E66.9 - Obesity, unspecified (ICD-10) Hypothyroidism ?E03.9 - Hypothyroidism, unspecified (ICD-10) Osteoarthritis ?M19.90 - Unspecified osteoarthritis, unspecified site (ICD-10) DVT (deep venous thrombosis) ?I82.409 - Acute embolism and thrombosis of unspecified deep veins of unspecified lower extremity (ICD-10) Arrhythmia ?I49.9 - Cardiac arrhythmia, unspecified (ICD-10) PVD (peripheral vascular disease) ?I73.9 - Peripheral vascular disease, unspecified (ICD-10) COPD (chronic obstructive pulmonary disease) ?J44.9 - Chronic obstructive pulmonary disease, unspecified (ICD-10) Asthma ?J45.909 - Unspecified asthma, uncomplicated (ICD-10) Lymphedema ?I89.0 - Lymphedema, not elsewhere classified (ICD-10) Venous insufficiency ?I87.2 - Venous insufficiency (chronic) (peripheral) (ICD-10) Varicose veins of bilateral lower extremities with pain ?I83.813 - Varicose veins of bilateral lower extremities with pain (ICD-10) Surgical History (Updated 02/21/24 @ 13:27 by Wild Slade) S/P sclerotherapy of varicose veins ?Z98.890 - Other specified postprocedural states (ICD-10) ?Z86.79 - Personal history of other diseases of the circulatory system (ICD- 10) S/P sclerotherapy of varicose veins ?Z98.890 - Other specified postprocedural states (ICD-10) ?Z86.79 - Personal history of other diseases of the circulatory system (ICD- 10) S/P sclerotherapy of varicose veins ?Z98.890 - Other specified postprocedural states (ICD-10) ?Z86.79 - Personal history of other diseases of the circulatory system (ICD- 10) Status post ablation of incompetent vein using laser ?Z98.890 - Other specified postprocedural states (ICD-10) H/O gastric sleeve ?Z90.3 - Acquired absence of stomach [part of] (ICD-10) Family History (Updated 11/06/23 @ 09:08 by Estefania Dhaliwal) Other Family history not known due to adoption Social History (Updated 11/06/23 @ 09:09 by Estefania Dhaliwal) Within the past year, how often did you have a drink containing alcohol: never Score interpretation: A score less than 4 is consistent with normal alcohol consumption. Smoking status: Never smoker Non-prescribed substance use: denies use Meds Home Medications and Allergies Home Medications ?Medication ?Instructions ?Recorded ?Confirmed ?Type albuterol sulfate 90 mcg/actuation 1 inh inhalation Q6H 11/06/23 11/06/23 Histo ry aerosol inhaler aripiprazole 20 mg tablet (Abilify) 20 mg PO DAILY 11/06/23 11/06/23 History cetirizine 10 mg capsule 10 mg PO DAILY PRN angioedema 11/06/23 11/06/23 History citalopram 20 mg tablet (Celexa) 10 mg PO DAILY 11/06/23 11/06/23 History fluticasone propionate 110 1 inh inhalation BID 11/06/23 11/06/23 History mcg/actuation HFA aerosol inhaler levothyroxine 150 mcg tablet 75 mcg PO DAILY 11/06/23 11/06/23 History (Euthyrox) lorazepam 0.5 mg tablet (Ativan) 0.5 mg PO DAILY 11/06/23 11/06/23 History oxybutynin chloride 10 mg 10 mg PO DAILY 11/06/23 11/06/23 History tablet,extended release 24 hr oxycodone-acetaminophen 5 mg-325 1 tab PO DAILY 11/06/23 11/06/23 History mg tablet (Endocet) rivaroxaban 20 mg tablet (Xarelto) 20 mg PO DAILY 11/06/23 11/06/23 History trazodone 100 mg tablet 50 mg PO DAILY 11/06/23 11/06/23 History zolpidem 5 mg tablet (Ambien) 11/06/23 History Allergies Allergy/AdvReac Type Severity Reaction Status Date / Time No Known Drug Allergies Allergy Verified 10/04/23 14:35 Assessment and Plan Assessment and Plan (1) Varicose veins of bilateral lower extremities with pain: Procedures Procedure Instructions Procedures Left leg microfoam chemical ablation/Varithena: Risks and benefits of the procedure were discussed at length and informed written consent was obtained.? Time-out procedure was performed and the correct patient and procedure were confirmed.? Staff present during time-out: Wild Slade RN and Trino Israel MD.? Patient prepped and procedure performed in usual sterile fashion.? Patient was placed in Trendelenburg prior to Polidocanol/Varithena injections. Sclerosing Agent:?? 15cc 1% Polidocanol/Varithena Site Injected: left lecc varithena administered in to a 6mm varicose vein left distal medial lower leg 7cc varithena administered in to a 5mm varicose vein left mid anterior lower leg Number of Injections:? 2 The patient tolerated the procedure well without complication.? Hemostasis was obtained and thigh-high compression stocking was applied with foam pads.? Instructed patient to wear stocking for at least 96 hours and sleep with it and only remove for showering.? The patient was instructed to? wear stocking for 2 weeks.? Patient verbalizes understanding and states they will comply.? Patient was given post-procedure instructions. Patient was discharged in good condition.? Scheduled to undergo limited venous ultrasound and? exam on 02/28/2024. ITrino MD personally performed the services described in this documentation, as scribed by Wild Slade RN in my presence and it is both accurate and complete. IWild RN, am scribing for, and in the presence of, Dr. Trino Israel and in the presence of the patient.
--- NOTE | 2024-02-20 09:43 | W.VEIN ---
Discharge Plan Discharge Disposition: Home, Self-Care Discharge Medications: No Action lorazepam [Ativan] 0.5 mg tablet 0.5 mg PO DAILY cetirizine 10 mg capsule 10 mg PO DAILY PRN (Reason: angioedema) aripiprazole [Abilify] 20 mg tablet 20 mg PO DAILY albuterol sulfate 90 mcg/actuation HFA aerosol inhaler 1 inh inhalation Q6H Xarelto 20 mg tablet 20 mg PO DAILY Rx Instructions: must administer with evening meal fluticasone propionate 110 mcg/actuation HFA aerosol inhaler 1 inh inhalation BID oxycodone-acetaminophen [Endocet] 5-325 mg tablet 1 tab PO DAILY zolpidem [Ambien] 5 mg tablet citalopram [Celexa] 20 mg tablet 10 mg PO DAILY trazodone 100 mg tablet 50 mg PO DAILY levothyroxine [Euthyrox] 150 mcg tablet 75 mcg PO DAILY oxybutynin chloride 10 mg tablet extended release 24hr 10 mg PO DAILY Plan of Treatment: f/u evaluation with physician along with left leg limited u/s Patient Instructions: Polidocanol (By injection) (Gabriel Sullivan) Print Language: Polish
--- NOTE | 2024-02-20 09:43 | V.VEINS.HP ---
Review of Systems ROS Narrative I, Trino Israel MD personally performed the services described in this documentation, as scribed by Wild Slade RN in my presence and it is both accurate and complete. I, Wild Slade RN, am scribing for, and in the presence of, Dr. Trino Israel and in the presence of the patient. Status of ROS 10 or more systems reviewed and unremarkable except as noted in history and below Cardiovascular Reports: edema and swelling of feet/ankles Musculoskeletal Reports: extremity pain and extremity swelling Integumentary/Breast Reports: redness, non-healing lesion and changes in skin color [facility] Medical History (Updated 12/31/23 @ 14:44 by Wild Slade) Thrombophlebitis of superficial veins of left lower extremity ?I80.02 - Phlebitis and thrombophlebitis of superficial vessels of left lower extremity (ICD-10) Phlebitis and thrombophlebitis of superficial vessels of lower extremities, bilateral ?I80.03 - Phlebitis and thrombophlebitis of superficial vessels of lower extremities, bilateral (ICD-10) Phlebitis and thrombophlebitis of superficial vessels of right lower extremity ?I80.01 - Phlebitis and thrombophlebitis of superficial vessels of right lower extremity (ICD-10) Non-healing lumpectomy wound ?T81.89XA - Other complications of procedures, not elsewhere classified, initial encounter (ICD-10) Other reconstructive surgery as the cause of abnormal reaction of the patient, or of later complication, without mention of misadventure at the time of the procedure ?Y83.4 - Other reconstructive surgery as the cause of abnormal reaction of the patient, or of later complication, without mention of misadventure at the time of the procedure (ICD-10) Cubital tunnel syndrome ?G56.20 - Lesion of ulnar nerve, unspecified upper limb (ICD-10) Pacemaker ?Z95.0 - Presence of cardiac pacemaker (ICD-10) Obesity ?E66.9 - Obesity, unspecified (ICD-10) Hypothyroidism ?E03.9 - Hypothyroidism, unspecified (ICD-10) Osteoarthritis ?M19.90 - Unspecified osteoarthritis, unspecified site (ICD-10) DVT (deep venous thrombosis) ?I82.409 - Acute embolism and thrombosis of unspecified deep veins of unspecified lower extremity (ICD-10) Arrhythmia ?I49.9 - Cardiac arrhythmia, unspecified (ICD-10) PVD (peripheral vascular disease) ?I73.9 - Peripheral vascular disease, unspecified (ICD-10) COPD (chronic obstructive pulmonary disease) ?J44.9 - Chronic obstructive pulmonary disease, unspecified (ICD-10) Asthma ?J45.909 - Unspecified asthma, uncomplicated (ICD-10) Lymphedema ?I89.0 - Lymphedema, not elsewhere classified (ICD-10) Venous insufficiency ?I87.2 - Venous insufficiency (chronic) (peripheral) (ICD-10) Varicose veins of bilateral lower extremities with pain ?I83.813 - Varicose veins of bilateral lower extremities with pain (ICD-10) Surgical History (Updated 01/29/24 @ 15:02 by Wild Slade) S/P sclerotherapy of varicose veins ?Z98.890 - Other specified postprocedural states (ICD-10) ?Z86.79 - Personal history of other diseases of the circulatory system (ICD-10) S/P sclerotherapy of varicose veins ?Z98.890 - Other specified postprocedural states (ICD-10) ?Z86.79 - Personal history of other diseases of the circulatory system (ICD-10) Status post ablation of incompetent vein using laser ?Z98.890 - Other specified postprocedural states (ICD-10) H/O gastric sleeve ?Z90.3 - Acquired absence of stomach [part of] (ICD-10) Family History (Updated 11/06/23 @ 09:08 by Estefania Dhaliwal) Other Family history not known due to adoption Social History (Updated 11/06/23 @ 09:09 by Estefania hDaliwal) Within the past year, how often did you have a drink containing alcohol: never Score interpretation: A score less than 4 is consistent with normal alcohol consumption. Smoking status: Never smoker Non-prescribed substance use: denies use Meds Home Medications and Allergies Home Medications ?Medication ?Instructions ?Recorded ?Confirmed ?Type albuterol sulfate 90 mcg/actuation 1 inh inhalation Q6H 11/06/23 11/06/23 History aerosol inhaler aripiprazole 20 mg tablet (Abilify) 20 mg PO DAILY 11/06/23 11/06/23 History cetirizine 10 mg capsule 10 mg PO DAILY PRN angioedema 11/06/23 11/06/23 History citalopram 20 mg tablet (Celexa) 10 mg PO DAILY 11/06/23 11/06/23 History fluticasone propionate 110 1 inh inhalation BID 11/06/23 11/06/23 History mcg/actuation HFA aerosol inhaler levothyroxine 150 mcg tablet 75 mcg PO DAILY 11/06/23 11/06/23 History (Euthyrox) lorazepam 0.5 mg tablet (Ativan) 0.5 mg PO DAILY 11/06/23 11/06/23 History oxybutynin chloride 10 mg 10 mg PO DAILY 11/06/23 11/06/23 History tablet,extended release 24 hr oxycodone-acetaminophen 5 mg-325 1 tab PO DAILY 11/06/23 11/06/23 History mg tablet (Endocet) rivaroxaban 20 mg tablet (Xarelto) 20 mg PO DAILY 11/06/23 11/06/23 History trazodone 100 mg tablet 50 mg PO DAILY 11/06/23 11/06/23 History zolpidem 5 mg tablet (Ambien) 11/06/23 History Allergies Allergy/AdvReac Type Severity Reaction Status Date / Time No Known Drug Allergies Allergy Verified 10/04/23 14:35 Exam Narrative Exam Narrative: Trino Chaves MD personally performed the services described in this documentation, as scribed by Wild Slade RN in my presence and it is both accurate and complete. Wild Chaves RN, am scribing for, and in the presence of, Dr. Trino Israel and in the presence of the patient. Constitutional Documenting provider has reviewed patient's vital signs: yes Common normals: oriented x3 Lymph Lymphatic: no lymphedema noted Cardio Common normals: regular rate Rate: regular rate Peripheral pulses: posterior tibial pulses present and dorsalis pedis pulses present Extremity Common normals: normal capillary refill General: edema Right lower extremity: upper leg and lower leg Left lower extremity: upper leg and lower leg Neuro Common normals: oriented x3 Assessment and Plan Assessment and Plan (1) Varicose veins of bilateral lower extremities with pain: Plan f/u evaluation with physician along with left leg limited u/s Trino Chaves MD personally performed the services described in this documentation, as scribed by Wild Slade RN in my presence and it is both accurate and complete. IWild RN, am scribing for, and in the presence of, Dr. Trino Israel and in the presence of the patient. Procedures Procedure Instructions Procedures leg microfoam chemical ablation/Varithena: Risks and benefits of the procedure were discussed at length and informed written consent was obtained.? Time-out procedure was performed and the correct patient and procedure were confirmed.? Staff present during time-out: Wild Slade RN and Trino Israel MD.? Patient prepped and procedure performed in usual sterile fashion.? Patient was placed in Trendelenburg prior to Polidocanol/Varithena injections. Sclerosing Agent:?? 15cc 1% Polidocanol/Varithena Site Injected: left leg Number of Injections:? The patient tolerated the procedure well without complication.? Hemostasis was obtained and thigh-high compression stocking was applied with foam pads.? Instructed patient to wear stocking for at least 96 hours and sleep with it and only remove for showering.? The patient was instructed to? wear stocking for 2 weeks.? Patient verbalizes understanding and states they will comply.? Patient was given post-procedure instructions. Patient was discharged in good condition.? Scheduled to undergo limited venous ultrasound and? exam on I, Trino Israel MD personally performed the services described in this documentation, as scribed by Wild Slade RN in my presence and it is both accurate and complete. IWild RN, am scribing for, and in the presence of, Dr. Trino Israel and in the presence of the patient.
--- NOTE | 2024-02-21 12:32 | VEIN_ITS ---
[address] [address] Patient Name: YRN RICARDO MRN: [id number] date: 1960 Sex: M Assigned Patient Location: Current Patient Location: Accession/Order Number: [id number] Exam Date: 02/21/2024 12:32 Report Date: 02/21/2024 13:48 At the request of: LEONID SCOTT Procedure: VC INJ Foam Sclerosant [employer]US [employer]EL MANAGER PROCEDURE: VC INJ Foam Sclerosant WUS [employer] MOTEL MANAGER COMPARISON: None. HISTORY: I83.813 - Varicose veins of bilateral lower extremities w... Pre-operative Diagnosis: CEAP class C6 venous insufficiency with pain, tenderness, edema and incompetent left saphenous and varicose vein(s), chronic venous insufficiency left leg secondary to venous incompetence Post-operative Diagnosis: CEAP class C6 venous insufficiency with pain, tenderness, edema and incompetent left saphenous and varicose vein(s), chronic venous insufficiency left leg secondary to venous incompetence Procedure Performed: 1. Ultrasound-guided microfoam chemical ablation with Varithenaregistered 2. Intraoperative ultrasound guidance Anesthesia: None Indications for Procedure: 63-year-old male who presents with a long history of lower extremity pain swelling skin thickening. Hemosiderin staining and nonhealing venous stasis ulcerations. The patient failed conservative medical therapy including medical compression stockings, exercise and analgesics. Prior procedures include endovenous laser ablation. Multiple incompetent varicosities of the left leg. Duplex scan showed reflux and enlarged diameters up to 6 mm. The patient underwent informed consent including management options where the complications of infection, bleeding, pain, and skin injury were discussed. Particular attention was spent discussing thrombus extension and deep vein thrombosis as well as the possibility of pulmonary embolus and treatment with oral or injectable blood thinners. Procedure: The patient walked to the procedure room. All applicable staff donned appropriate apparel. A procedure timeout was performed to confirm correct patient, correct extremity, correct procedure, and correct room set-up including presence of all applicable supplies, devices, and drugs. A duplex ultrasound, performed by myself confirmed the location and incompetence of branch saphenous varicosities and their course was marked on the skin together with the dilated tributaries. The extent of treatment of the vein and the associated varicosities was determined through ultrasound mapping. The skin was prepped and then punctured with a butterfly needle and advanced under ultrasound guidance. The Varithenaregistered canister was activated and the canister was primed and purged as required in the instructions for use. Varithenaregistered was drawn into a sterile syringe. 8 cc injected into a 6 mm varicose vein left distal medial lower leg 7 cc injected into a 5 mm varicose vein left mid anterior lower leg Varithenaregistered was slowly administered at 0.5-1.0 cc/second with close observation by ultrasound of its course in the vessels. Total volume utilized was: 15 cc. Following administration of Varithenaregistered the leg was elevated and the patient was asked to repeatedly dorsiflex the ankle to limit flow of Varithenaregistered into perforating veins. Once appropriate spasm had been confirmed in the treated veins, the vascular catheter was removed from the leg and light pressure was applied over the puncture site for hemostasis. The common femoral and deep superficial veins were then evaluated for flow and compressibility prior to dressing placement. The lower extremity was kept elevated at 45 degrees above the horizontal and cording material was applied over the saphenous segments and tributaries to allow for eccentric compression over the target vessels including the targeted saphenous vein(s). A multilayer dressing was applied consisting of foam pads, coban and thigh-high 20-30 mm Hg compression elastic support hose were placed on the patient. The leg was lowered only after compression had been applied and the patient was immediately ambulatory. The patient ambulated 10 minutes under supervision and was without apparent concerns at time of release. Post-care instructions include advising patient to keep post-treatment bandages in place and dry for 48 hours, avoid extended periods of inactivity, avoid heavy exercise for one week, wear compression stockings on the treated leg continuously for two weeks, to walk daily for 10 minutes over the next month. The patient was instructed to take an anti-inflammatory medicine as needed and to follow up for color duplex scan of the Saphenous veins, the treated branch saphenous varicosities, the adjacent deep veins, and additional treatment within 7 days. PERSONNEL: Wild Slade RN Electronically authenticated by: LEONID SCOTT Date: 02/21/2024 13:48
--- OUTSIDE RECORDS SUMMARY | 2024-02-21 12:35 | XMS_ITS | CCD ---
Author Organization [facility] Inform ion Partnership [facility] Care Team Providers Care Drilling Machine Operator Name Role Phone SERAFIN SHEARER Referring Unavailable LESLY MELCHOR Primary Care Unavailable SERAFIN SHEARER Referring Unavailable LESLY MELCHOR Primary Care Unavailable SERAFIN SHEARER Admitting Unavailable SERAFIN SHEARER Attending Unavailable LESLY MELCHOR Primary Care Unavailable Lesly Melchor Primary Care Provider CONSUELO DELGADILLO Referring Unavailable LESLY MELCHOR Primary Care Unavailable Lesly Melchor Primary Care Provider [phone] Lesly Melchor MD Primary Care Provider [phone] LESLY MELCHOR Referring Unavailable LESLY MELCHOR Primary Care Unavailable OLAF CAIN Attending Unavailab LESLY Concepcion Referring Unavailable LESLY MELCHOR Primary Care Unavailable Melo Quiñones Attending Unavailab Melo Frederick Admitting Unavailab Lesly Concepcion Primary Care Unavailable Dolce, Srinivas R Attending Unavailable Ankita, Srinivas R Admitting Unavailable LESLY MELCHOR MD Primary Care Unavailable Dolce, Srinivas R Attending Unavailable Dolmegan, Srinivas R Admitting Unavailable LESLY MELCHRO MD Primary Care Unavailable Dolce, Srinivas R [...] LESLY To Primary Care Unavailable KAREN ZAPATA, LSELY To Attending Unavailable KAREN ZAPATA, LESLY To Primary Care Unavailable KAREN ZAPATA, LESLY To Primary Care Unavailable KAREN ZAPATA, LESLY To Attending Unavailable KAREN ZAPATA, LESLY To Attending Unavailable KAREN ZAPATA, LESLY To Primary Care Unavailable LESLY MELCHOR MD Attending Unavailable KAREN ZAPATA, LESLY To Primary Care Unavailable Dolce, Srinvias R Admitting Unavailable Dolce, Srinivas R Attending [...] KAREN ZAPATA, LESLY To Primary Care Unavailable Yrn Quan Attending Unavailable Yrn Quan Admitting Unavailable KAREN ZAPATA, LESLY To Primary Care Unavailable Veda Barnhart Attending Unavailable Veda Barnhart Admitting Unavailable LESLY MELCHOR MD Primary Care [...] Propensity to adverse reactions to drug (disorder) [facility] Repository Medications Current Medications Medication Drug Class(es) [...] hours as needed for pain. 0 Active [id number] 200 actuat albuterol 0.09 mg/actuat metered dose [...] 07/23/2018 Active take 1 capsule by mo ut in the morning levothyroxine sodium (TIROSINT) 150 [...] (1 source) Drug therapy finding; Translations: [senior care (current) use of anticoagulants] Onset: 9 12-03-2018 [...] Value Interpretation Reference Range Facility Coding Summaryon 12-25-2023 Coding Summary HTMLBase 64 HrmnotprUGo0wSd+PGhl YWQ+MK5SSVXaE22peGIi tF5xO9PCEXnPVrkyVFWH NTsIQcLpupGrGL6lfFTm ZXJu IC8+HH5tMXXhGnfksKZp w0H2cOQ3R94zoj7oGArh gSP7EPOaMgMwekujo0yu wHy8UHipSvtlXvEl TIHpxO52JTR8lX28Ra92 cXKcbXSta3kltGq6UzDy SUReMSA5fIddHLofh5Fz GRIuK98auWIfl9E4 IGNvbGxhcHNlOyBlbXB0 mU4xJEbyrmxjl1hgwpkt Lpw0zj16sRXtn5E8iJJ4 C1GjvbL0IEWeuQUm AanbfVNAtN3gkptbe6cb gwqfLlYwJXSbBBq7TJu5 FZKgrLmkNkFjEW56PPJ0 FMMbpxFaF0DzGWZm wUqbAaT1h9Z1Wd3OE4WO WmweW5FXZWWFUDorjSF+ HZ34yi40U9BgQvihZqw3 BTJsZLQ1nDJ4vN4q EBJuYKloj1E3cFV5H9Hz hsKkwk0sn4wyKLJwOMek A41qyMHkg0Q5JILhyKG6 CVMjlWtiKbEsmK41 Oyc+DKYhuCxkk6RpWnqj p5yhr2umkEr9OqfrTLTo plPntWioIIY6a0UgEw7c JSWfvYW0rFB9sO3f TpXtTjV2EBuoV109JjHe aMFuIctmS28xW5QhvFE+ CEKfTns5EWXcrUfxEQ8x R9KhJNIwujxrpOZj hHeeXQ6gACVfqzcfVVIp zJ8yIAYtT3f8ThKmBnC1 LFnuO5CqKCWdfgruEr19 zJ7lNqMxTmY4ZOux Z9TxcqY6TDIetUMgFNoq HAH8C89hj2Z7MNBeJYWy CMN6sWE4pG2lxBndzweb bGVmdDsgdmVydGlj QMobXNvnX341HNAysEac PkNvZGluZyBEYXRlOiAg MDgvMjEvMjAyNDwvdGQ+ ZIHfAXL4kPsvQBPa lFVgBXkiGm4rnNunoGsq DQ7nZCYvynmlCBGncW2a KJEheTQzeOkzLP4xLQPh yhczq885ZbIoRLB9 DFQnuCDeB2MlvG3tIbFl WGYaIIAjK1NnsDGzJVao Y895RZntYzR8PZCdkvSa P6AqWNBwfDdaHjU7 d9H8Oy7Ay8VwjdbvI7Xn vAOqFyKuJhuxFTo2R6To PjwvdHI+RU42VPDzLJ59 JDv3QSW5hSuoTUqr OPQkB0WyoR6iNdEiPPVa ZGRkOyc+PHRhYmxlIHdp ZHRoPScxMDAlJyBzdHls FR2cGb6vETKvGOAv xZnslAKqBfMlm9hgPWCb MKngOG7nzBhxM3GmaUN6 OTLrm1w9Ub46F03cL7Iq dXA+CFSgvUK5mRG7 vS9rLjUpCdR3KOmgG859 UpQjkHIvSkkog1xqh8th yDb6MxM6QGCkpfUgvEpk FYQ9g6IbWg00K74x IHdpZHRoPSIxNSUiIHZh zSyijm0lsH1qJd5+PGNv rZD2vER5cC9pCrZuHeC2 EMmlE429SuPtfOHd Ydvtj5itv5pltRg8ClCo QSLgcpAjrWhcBZJ7y8Cv Nj67G5HkqBbbw4ExExd3 sy96fPAtf4N6hSG7 B3KxSKFukvwjkRMvzOav CA0dJMVumiykUJYqhN9c ALDjH8g8QpCfPdP4VDns U1RynvN0ARCuzUNl MDSejRVVpL3uvgobo5fw dsgxSpTgZUPtTBm2VKu6 WTTmqAafPhOnQNG1MoT9 JWG3kPXfmY7wdDcy qdbzeX6bUud+IUL2hOMe mVVMJL9uRkavuWX+PHRk AVR7rXefESpoXJOrfJ3a NLAvX7w5MvEpQnQ7 CJgwZ4OwukK8IFLulHHg GFOqpOWIyE0nskqlc6nh fghzQyKaYXXpUGc5YGv3 LWFsaWduOiBsZWZ0 KhZ0JSD0tYTarG7qqSpb ukohfQ5bMhz+QmlydGgg AKS2BPt5B9QaPlf4MBDj iQkfQI2btXByUAdy Ar4frFzgzXkgGU0dJZUj cagio020NzNor2xvTDQf cQFaMXgdVGT7V00fu7Z9 IYVeWHWdSNM3zEL3 yB2pySlsgtuqkYApjWvz uwLvoJujVIykEGgdB531 AOEipSfnTpIhDIy3N3Eb Pgv9RIOuiJpzCQ3m mBQlOOfkDq5ywTbfpPqf AX2bQQLhfqjyb838JnDf u0tdJJLbxQJzCCwpELX3 G86cj0R4SRHnTIVr BGO2vDO6mZ1kwPpnboxt bGVmdDsgdmVydGljYWwt LSvfS052HWWkuYvxVnTo eHj1P3IkXzb2EXZv nWjeEI1ucYCcNGvuGt2a tCoztEuoWC5oWNXqsjom g016YfTgg2jtZJOohRQy OTnkNIH9J16iw8H5 LVFdAWPdZKF1eJM7xL6v bGlnbjogbGVmdDsgdmVy lFbzMVlzVXreR735WYGl cDsnPlBhdGllbnQg CBihSMd4M0BrBevviVE+ NW01BDVuXV07pLDnbVIv e4ojsXz5MbJgHUXeZPK7 gWhvZEudr9IfWEBv O33wnLPek3F6FPFsuCib lQEsHhEhbQS7uF5rEQtp nqnxu3idraghPmbii1fo oi74lY70X09jECvr ZHRoPSIzMCUiIHZhbGln ju0zgJ5oNj1+PGNvbCB3 fBL2gV2gGULjSzJ9AIya K965QhQflUVyFzlu c0yht4inbHp7NoT7ERNa ktSufNrpFTF0u9MoDy52 B82bWXwhKPCgXRDgNZGl SOVqxZimby6ubE6a Ii8+BXWlvCM9sIY2uT5f MwPyTzB6LVqyC293UnZp lAXyHzqwT67jT2WisIS+ PYWqClv2MROxoZpk NP6rsBSoWGpyOx6yAXG6 BwXhXdCoGJtsI1ArGICp zruhoyjnsGH2GGHzJTGr oI39Pu9yfEtxWESp eRBGaX5sqkryx2pvnqir GhWtTZLjHJp6HCp9WEIy lIpuFgRrBPT0IjN6SOH1 xDLyoZ0olHughwwy lW3dS8QmSHJnnoyuIx24 nL7kIsTxWaL0ZCruCmf+ J1PKImfyYC1NF9cFUPye SzwvdGQ+PHRkIHN0 nIozDZguKWDkfG0dYAKu J0l3ByIrNnH8BPgkT3Zz SHDeqxatYu10yZ8mKlCi RzC9WPelJ9HrsxN0 MCJszTMwLUogCKV7D79u r6D7QUAcEZKiVTJ6iXP2 tO0qzMuvxfmrrZKziGdn dmVydGljYWwtYWxp W937OJMjqPwwIwIsFcY2 DlI1SmE7O5QiThv7QGSp eCynTV5lgWCqQMgyCu7p dEhdwRqbMP0yWPIe wiosOTEtyJ7rKGTpoDMv fCxxBK3uIVPdytghs861 QuYmSHE4YBMsyLPxG3Su zQ5cHpLxVYKfSYPa Z2YyeWOrPAgdG954UJsb SaL8DJKhfpJcD4XoNXLs bDucPgU4l7F3Uv35IDQH ZWFyczwvdGQ+PHRk DVJ3rIcrHXyaXMQexR7r CIGkA7q9AmSbXhY2SBik Q6JnAJTpqqijMi63eK3e GuMlGlA5TNjaN3Is svN7ZPMqfNDuAEazMLY8 G80di4K1BCYfBLZcOLN8 zKT3pJ1osPofxtnyfKSr dDsgdmVydGljYWwt ENjdE589GMDtaNswOr9H XVH3P2QuQpj8TAVycJrr IQ9chGGeVPcxMi5fhGvz nGysMC4pPAEprqpk HQNryU1gLBQgrQWyxSex YV5qGKTgwjfju267NhCk QIP8NLUpqZCkC6WcfL6e YzIxWROtXUPkM6Fo mNOsIOukF118YClfDkA3 UJKzccIcK0OtTGCetWza EbN9j1Y0Du4NDXnolXA+ NG31eh38Y1AyJoay Gkm1BHRrZTI0zPC2vB8v JWPrEEhfv0Q1bUZ6E1Bp vbYbbb2yl5biBCNwNXtl R68piTLcr0R9XFRj wRE0HTMazWkuNaKazM61 Oyc+PLXxbQigv1NpMasi q1jkw3txlJe8KoUsLAYz mgSvxJefVVH8x2Pm Mo41A72hXBmcAQMfASQy VTLrNNTvtKneja1qdY0j Ii8+KULxjLW2cEW3jG5v GoWvQgK3EKakU570 CuKouPIpZoshm9bis8ma rYq1RsJrVKYdxiLqcPdx MLM1s1PbVd15T4BtoSyi w1VqTxl3pa33uGOi f7H9iCU0Z2DyJOWgxtqi yIOyrMpjSC4kYKBthjeg WCFvmQ5qYUOjY7m8BuWk WgS8AGkwW8KgqfZ7 WJQonVUiOTKtuQZIjX8e seome5kzukqxEyKjAMVl HCs4IHx6AOBexLkqRoEt NII2GwN3KGR0eQFl iS8udIecapowuO9wScz+ BCd3g0oydBSqPP5oqHG5 MW26RF14wEImm5J8mNU6 Z1ImXVSqbjzaupxx dGB8NXFcUPQceX95Tk5w sXquXg2gFVHqAPY6HGUc kAOuO4CzbN7vEkXhNGVu VQMjB3LsfFEjWGsf L597NPyjQrO1DMCngsVb G8UmUYFlrBqhCgR0g0A4 Tp3POE63ZB96DU45nYYk w7L6zKD8H1KhVFUe csxpysrpfJM7OVZnBNBl aP70Gt8gjSbvBh7rDCHt RDF3FJXlnZTgR1YkrY0a ErVePVTuHZYmQ8Fz mHTzQCffI676WIvfDuB4 BJEkwkKbS7ZyDDCpfDzj WyJ7a7H2Ef2GDl65FF20 HI77tFWjv9U8gHB0 I7PdPXXxnkbtalmksIT4 RBWkFXKopQ59Bj4tdBia Ns6wDABmXZE6MFOdbKNk M8NojD9aCjVfWRMw QLKeQ4JmwCNyQWwkY398 VElkFjF2TRUqubNwM6Dg OTSupCteJfB4c7R6Sj1S GQuegie6I8NoAkqv dHI+AV91HRIyBB02pOQk sOTnb1uqzPi2TrZeWVWz PDF7zHvhNLyoh9YwOYKb T43qkDQns1B0OZSd bGx (more content not included)... [facility] Outside Recordson 12-25-2023 Outside Records [id number]# [email or web address] [facility] Ambulatory Patient Summaryon 12-24-2023 Ambulatory Patient Summary [address], [address] - Visit Summary For YRN RICARDO Age: 63 years Sex: MALE : 1960 Address: [address] [place], [address] Home: Work: -- Primary Care Provider: LESLY MELCHOR MD Race: White Ethnicity: Not or Language: [place] Health Plan: 1?MEDICARE [facility], 2?MEDICAID [facility], 3?MEDICAID [facility] Reason for Visit: MEDICARE WELLNESS Prescription Information: If you have been given a prescription for narcotics, seek immediate medical attention if you have any difficulty breathing or any sudden status changes such as confusion and sleepiness. If you or anyone you know is experiencing suicidal thoughts, mental health, alcohol and/or drug addiction problems; contact the [facility] 26/11 Crisis Hotline -Text 4HOPE to 268531. Follow-Up Information With: Address: When: KAREN ZAPATA, LESLY To [facility] [address] [place] [address]/ [address] [place] [address] [id number] In 3 months Future Appointments [facility] Appt. Date: 03/26/2024 11:00 AM Scheduled Provider: Lesly Melchor MD [address] [place] [address] [place], [address] Future Orders No future orders Additional Goals [...] 2.99 m2 Body Mass Index: 50.01 kg/m2 [place] Body Weight Calculated: 80.425 kg BSA Measured: [...] tab(s)(650 Milligram) (more content not included)... Normal [facility] Patient Handouton 12-24-2023 Patient Handout [facility] [...] help if (more content not included)... Normal [facility] .Auto Diff 12-11-2023 Auto [place] % 10 % Normal -12 [facility] Comment on above: Performed By: #### 1 [id number], [id number], [id number], [id number] ####[facility] (DEFAULT)[address] [place] [address] Baso Abs# 0.1 x10 Normal 0.0-0.2 [facility] Comment on above: Performed By: #### 1 [id number], 5198664, [id number], [id number] ####[facility] (DEFAULT)[address] [place] [address] Basophils/100 WBC (Bld) 1.4 % Normal 0.2-2.0 [facility] Comment on above: Performed By: #### 1 [id number], 2623675, [id number], [id number] ####[facility] (DEFAULT)[address] [place] [address] Eos Abs# 0.4 x10 Normal 0.0-0.4 [facility] Comment on above: Performed By: #### 1 8525728, 3672165, [id number], [id number] ####[facility] (DEFAULT)[address] [place] [address]6064 Eosinophils/100 WBC (Bld) 8.0 % High 0.9-4.0 [facility] Comment on above: Performed By: #### 1 [id number], 0302503, [id number], [id number] ####[facility] (DEFAULT)[address] [place] [address] Lymph Abs# 1.4 x10 Normal 1.3-2.9 [facility] Comment on above: Performed By: #### 1 9372386, 3771253, [id number], [id number] ####[facility] (DEFAULT)[address] [place] [address] 87901 Lymphocytes/100 WBC (Bld) 26 % Normal 14-48 [facility] Comment on above: Performed By: #### 1 3681431, 2902821, [id number], [id number] ####[facility] (DEFAULT)[address] [place] [address] [place] Abs# 0.6 x10 Normal 0.0-0.8 [facility] Comment on above: Performed By: #### 1 8784703, 8103723, [id number], [id number] ####[facility] (DEFAULT)[address] [place] [address] 30574 Neut Abs# 2.9 x10 Normal 1.5-9.2 [facility] Comment on above: Performed By: #### 1 [id number], 7934546, [id number], [id number] ####[facility] (DEFAULT)[address] [place] [address] 77363 Neutrophils/100 WBC (Bld) 54 % Normal 44-88 [facility] Comment on above: Performed By: #### 1 8560911, 0341065, [id number], [id number] ####[facility] (DEFAULT)[address] [place] [address] CBC w/ Auto Diffon 4 Erythrocyte distribution width (RBC) [Ratio] 15.4 % High 11.5-15.0 [facility] Comment on above: Performed By: #### 1 1984950, 4816401, [id number], [id number] ####[facility] (DEFAULT)[address] [place] [address] Hematocrit (Bld) [Volume fraction] 43.6 % Normal 34.8-51.9 [facility] Comment on above: Performed By: #### 1 4991685, 4362290, [id number], [id number] ####[facility] (DEFAULT)[address] [place] [address] Hemoglobin (Bld) [Mass/Vol] 14.3 g/dL Normal 11.8-17.7 [facility] Comment on above: Performed By: #### 1 1891377, 3627009, [id number], [id number] ####[facility] (DEFAULT)[address] [place] [address] Man Diff? Auto Invalid Interpretation Code [facility] Comment on above: Performed By: #### 1 [id number], 9703643, [id number], [id number] ####[facility] (DEFAULT)[address] [place] [address] 38179 MCH (RBC) [Entitic mass] 30 pg Normal 24-34 [facility] Comment on above: Performed By: #### 1 2342802, 2790778, [id number], [id number] ####[facility] (DEFAULT)[address] [place] [address] 28377 MCHC (RBC) [Mass/Vol] 33 g/dL Normal 26-37 [facility] Comment on above: Performed By: #### 1 3431259, 7669386, [id number], [id number] ####[facility] (DEFAULT)[address] [place] [address] MCV (RBC) [Entitic vol] 93 fL Normal 81-100 [facility] Comment on above: Performed By: #### 1 5767609, 4171380, [id number], [id number] ####[facility] (DEFAULT)[address] [place] [address] Platelet 137 x10 Low 138-427 [facility] Comment on above: Performed By: #### 1 0626079, 2358742, [id number], [id number] ####[facility] (DEFAULT)[address] [place] [address] Platelet mean volume (Bld) [Entitic vol] 7.5 fL Normal 6.3-10.2 [facility] Comment on above: Performed By: #### 1 5455525, 7394841, [id number], [id number] ####[facility] (DEFAULT)[address] [place] [address] RBC 4.68 x10 Normal 3.70-5.30 [facility] Comment on above: Performed By: #### 1 9931363, 1248742, [id number], [id number] ####[facility] (DEFAULT)[address] [place] [address] WBC 5.4 x10 Normal 3.5-10.5 [facility] Comment on above: Performed By: #### 1 2840748, 3209788, [id number], [id number] ####[facility] (DEFAULT)[address] [place] [address] Standardon 12-11-2023 eGFR Non AA 58 mL/min/1.73m2 Invalid Interpretation Code [facility] Comment on above: Performed By: #### 1 2670465, 9262957, [id number], [id number] ####[facility] (DEFAULT)[address] [place] [address] eGFR AA >60 Invalid Interpretation Code [facility] Comment on above: Performed By: #### 1 5637308, 5449027, [id number], [id number] ####[facility] (DEFAULT)[address] [place] [address] Albumin [Mass/Vol] 4.0 g/dL Normal 3.5-5.0 [facility] Comment on above: Performed By: #### 1 7413289, 1884462, [id number], [id number] ####[facility] (DEFAULT)[address] [place] [address] Alk Phos 79 IU/L Normal 32-91 [facility] Comment on above: Performed By: #### 1 0097866, 4496539, [id number], [id number] ####[facility] (DEFAULT)[address] [place] [address] ALT [Catalytic activity/Vol] 23.0 U/L Normal 17.0-63.0 [facility] Comment on above: Performed By: #### 1 4053946, 0752599, [id number], [id number] ####[facility] (DEFAULT)[address] [place] [address] AST [Catalytic activity/Vol] 27 U/L Normal 15-41 [facility] Comment on above: Performed By: #### 1 5302409, 2852655, [id number], [id number] ####[facility] (DEFAULT)[address] [place] [address] Bili Total 0.8 mg/dL Normal 0.3-1.2 [facility] Comment on above: Performed By: #### 1 9147999, 9452557, [id number], [id number] ####[facility] (DEFAULT)[address] [place] [address] Calcium [Mass/Vol] 8.4 mg/dL Low 8.9-10.3 [facility] Comment on above: Performed By: #### 1 6471560, 6881111, [id number], [id number] ####[facility] (DEFAULT)[address] [place] [address] 18724 Chloride [Moles/Vol] 106 mmol/L Normal 101-111 [facility] Comment on above: Performed By: #### 1 8678226, 8800128, [id number], [id number] ####[facility] (DEFAULT)[address] [place] [address] CO2 [Moles/Vol] 29 mmol/L Normal 21-32 [facility] Comment on above: Performed By: #### 1 5156049, 0820765, [id number], [id number] ####[facility] (DEFAULT)[address] [place] [address] 25835 Creatinine [Mass/Vol] 1.26 mg/dL Normal 0.90-1.30 [facility] Comment on above: Performed By: #### 1 3933166, 1513925, [id number], [id number] ####[facility] (DEFAULT)[address] [place] [address] 70066 Glucose [Mass/Vol] 88.0 mg/dL Normal 74.0-118.0 [facility] Comment on above: Performed By: #### 1 6920352, 8575950, [id number], [id number] ####[facility] (DEFAULT)[address] [place] [address] 21406 Potassium [Moles/Vol] 4.1 mmol/L Normal 3.6-5.1 [facility] Comment on above: Performed By: #### 1 4397792, 2382055, 4139783691, [id number] ####[facility] (DEFAULT)[address] [place] [address] 94881 Protein [Mass/Vol] 7.7 g/dL Normal 6.5-8.1 [facility] Comment on above: Performed By: #### 1 6639946, 3598370, 4057920885, [id number] ####[facility] (DEFAULT)[address] [place] [address] 22198 Sodium [Moles/Vol] 137.0 mmol/L Normal 136.0-144.0 [facility] Comment on above: Performed By: #### 1 9347663, 9473364, [id number], [id number] ####[facility] (DEFAULT)[address] [place] [address] 73180 Urea nitrogen [Mass/Vol] 16 mg/dL Normal 8-26 [facility] Comment on above: Performed By: #### 1 5810935, 0365531, [id number], [id number] ####[facility] (DEFAULT)[address] [place] [address] Albumin/Globulin [Mass ratio] 1.0 {ratio} Low 1.4-2.6 [facility] Comment on above: Performed By: #### 1 [id number], [id number], [id number], [id number] ####[facility] (DEFAULT)[address] [place] [address]0970 Anion gap [Moles/Vol] 6.1 mmol/L Normal 5.0-19.0 [facility] Comment on above: Performed By: #### 1 [id number], [id number], [id number], [id number] ####[facility] (DEFAULT)[address] [place] [address] 76466 Globulin (S) [Mass/Vol] 3.7 g/dL Normal 1.5-4.3 [facility] Comment on above: Performed By: #### 1 [id number], [id number], [id number], [id number] ####[facility] (DEFAULT)[address] [place] [address] Osmolality 274 mOsm/L Invalid Interpretation Code [facility] Comment on above: Performed By: #### 1 [id number], [id number], [id number], [id number] ####[facility] (DEFAULT)[address] [place] [address] 95255 Urea nitrogen/Creatinine [Mass ratio] 12.6 mg/mg Normal 4.6-16.2 [facility] Comment on above: Performed By: #### 1 [id number], [id number], [id number], [id number] ####[facility] (DEFAULT)[address] [place] [address] 25787 Lipid Panel Standardon 12-10 Cholesterol [Mass/Vol] 150.0 mg/dL Normal 66.0-200.0 [facility] Comment on above: Performed By: #### 1 [id number], [id number], [id number], [id number] ####[facility] (DEFAULT)[address] [place] [address] 44971 Cholesterol in HDL [Mass/Vol] 51 mg/dL Normal 40-71 [facility] Comment on above: Performed By: #### 1 [id number], 3645311, [id number], [id number] ####[facility] (DEFAULT)[address] [place] [address] 17985 Triglyceride [Mass/Vol] 73.0 mg/dL Normal 0.0-150.0 [facility] Comment on above: Performed By: #### 1 [id number], [id number], [id number], [id number] ####[facility] (DEFAULT)[address] [place] [address] 31335 Cholesterol in LDL [Mass/Vol] 85 mg/dL Normal 1-100 [facility] Comment on above: Performed By: #### 1 [id number], 7212061, [id number], [id number] ####[facility] (DEFAULT)[address] [place] [address] 52670 Cholesterol.total/Choles terol in HDL [Mass ratio] 2.9 {ratio} Normal 0.0-4.5 [facility] Comment on above: Performed By: #### 1 [id number], 6571825, [id number], [id number] ####[facility] (DEFAULT)[address] [place] [address]386 VLDL. 15 mg/dL Normal 5-40 [facility] Comment on above: Performed By: #### 1 [id number], [id number], [id number], [id number] ####[facility] (DEFAULT)[address] [place] [address] 10052 Provider Orderson 12-11-2023 Provider Orders [id number] 4#[id number] Normal [facility] Coding Summaryon 12-05-2023 [facility] HdbpwgwzDTr0aKv+PGhl YWQ+WG5EDOIlC38drBDf lE0mN6TLQDoAFjcyMBYI WRhTGrYglbFpKI2wrLJf ZXJu IC8+AQ2pSVZnChoraSJt z8P3iQT9V57dwg6aDQmp tHF5ZZFpMuNaucpuu4ap iSu2UIewEtudOmVw VDOnoI92ZCZ1mT87Fx21 aLDzcKVcf4cjxOp9PoCn WSUsJTW2cZwmEQhbg7Pl FUKyM98lvTBkd7G3 IGNvbGxhcHNlOyBlbXB0 mR4xSOlrhssut6ngktpv Abu3pc76bHZsy2V2aNW4 S1EzdwQ4SSNubERg AbbbrWUYvM0jbvmao4bp rvzrDmFjYDZlOLt1NTg1 HFUeoGhxZyXsVU38UBF8 REVwerPyQ2MyGUHg bHspViW6w6O8Wn7WY9JR EpgfO9KLKKJAQWlxwCS+ TO45lt65J0KvDsoqSym7 SVPtKAG8dZW5gN9o TWUdLRixw4M7pDQ2K3Ch jzEuni3nv3nsIKDtDVvc X70wcVShp9O9YYUnmCJ2 JRArzEicBeDxgC26 Oyc+NOJvsJmme5IvJjwf t1ssx8rfdRl3BrvkXXSk ziUqpIwuDPF0g5LmTp8h EQYxeEM7oLU5vR6p JySvIcT6SHxlX317NkXi jDKnKhacH44jF2RzeEG+ XUYdRev5NFQzzTefXO6h U8ItPWUvyqbayHZg mStuNY8eHFKvkmywUTLm xX8dHFMeR1h5KwMlQlL4 ZRngI2PdBENvupvhUu71 tZ8hZcPmVyL2IDfm K2HyigM9LJEzsMVwFSwl SUP6A27of9H5CCNjIFAz KZD5zIA4bH7jsLwypycc bGVmdDsgdmVydGlj XTqvVLmqR518XDMleRsy PkNvZGluZyBEYXRlOiAg MDgvMDEvMjAyNDwvdGQ+ YZQpYAJ0pGeqTCAj vTUyPWxaHb9qxPjgdNkx OV3dQSPovjcjHYXyrT0x POPztSKdqBhsYJ4zKXRk bznuc169HgOiYXB8 UUVifMQqI8SctY8lKzOa ZKQiKXVbH7QajYXyWZal Z805SUxqDbK4HVGtvnPf X8CqKTUexTbnWcX2 d2S3Fy1Kv5IrcmyvV1Pj cPQxDqOrOqciTSa8J1Wc PjwvdHI+BA95PFEdCU53 OZe0EWN6mPqbGNge KDPlY1GodN7eDhWtYTDy ZGRkOyc+PHRhYmxlIHdp ZHRoPScxMDAlJyBzdHls HP1sAc6kBAQjXHUg dSehgCSeFhTzc7cmSFJq IZabKH3dmFjrD2NnnOQ3 BSDwr1n2Nu30T15zT7Yw dXA+UCKtuYQ1xSL6 fU4jAtXfRoY4XUyyS432 BoBkpOCoDvzbb1duy4xr lAr8KyJ6XUAcsbMjrTkm SMZ7l8WqVv41P21j IHdpZHRoPSIxNSUiIHZh uBtgfq0vgK7oFn5+PGNv jTU1mDW0vF2gQtVvIoA4 ZLezA447LqFsdXMm Zknex0pcf1fscCe4BoWo PPZdkqQbeVstXRP8z0Pe Jj46U8LugQije0HxHfr9 ta32gQTly8W6zBC6 V1EiPSLbkhcolHFruIpm LC6nIAHvnhxpRVRhgV9b XMHhU0i3XcIyUqB8JHol S9DjebO2TZBrrMQh ETBwfXCAfJ9dzddwt7tl pkmmNbZsGQCjFAp9GCn0 PWYgoWzlFeDaTOL8XlK7 AUF6iJEawW7hgEev fpehcC1vXvp+PNA3pMAy hJZUVL8zBpvwrPI+PHRk CPM7aCdtQBkwSWWbcM9a MTUfZ1l5OxPzYfP7 YVgvV3MxheA0VYYkfURk XTLweAYAdX4xznxjo8og rhmwAaHnIICxEHh6FSt9 LWFsaWduOiBsZWZ0 GmR9TAD3iWNpaX0fwFrt hqlxpU5qFkg+QmlydGgg WJV5RYs5B7NqRpz9PAFj fUkfPB6dbNEgLCrd Da9ofGpyqIfgRW2mZBEb altyv326LjFjf9azFAHm mAVbVIeqHQH1Q15sv6P4 KEAcSDBrXTR4bEL6 dP2zdTcnwyzfvYCtsKgm iiCcfOwlRJgqMNgcX256 EECpkHcbVlRoFJl0G1Rz Wui3VIIdpObzFC9u uDEkUUooPp1cjNhwjLvj QJ9cEHIapdgcy491GoMv u4amQEFoaTZcWNuuCDH1 B20tr1N8RHDwLVFu HHD2uBE2nM1azVdcgtfw bGVmdDsgdmVydGljYWwt QTzqF190WAQhtXftWkEl fPi8C6GeUuv0PCYj pZvwAU8bkIWlUDzsUt7t cLiecWlrBO8bQZPjjwbx r270RrTgz3crTCSjgKMk UCnaVOF2Y45gz7A2 GHTaHMXsCPR0iRN3vB2x bGlnbjogbGVmdDsgdmVy zBfmAMrrFCwwH363NBTa cDsnPlBhdGllbnQg VNzmXPn9R5HmAazdcBS+ HU69UOBrPG27iUNziRKz h1zppWl0TrByFDHaOBE3 pNdwOIvae5SiCWKe D37jcUBky9T6IPPlmHmb cAQaQdTqoTK0lO8mISjt vwloz0tefttnZqqur8nn ph02pM31J82iAXzr ZHRoPSIzMCUiIHZhbGln yl6jcM6fRd3+PGNvbCB3 bYS9xU3jPSQxZcB1DBnb V377YxQwjJVcWywr t3mkw1kxrUg2VuL4NHUy duCpkNviAIS2g5ZlQi22 F82cYEftCDRaCSSnESWz EEZprIwvzg0dqF5y Ii8+IPWwhQE7fIX4lL3u HlJuInO0IKqeZ266QwSs mHRyDeoqO41vE8RuqWZ+ IPIeAre4WEMsjAed KR4llAOsVUlmUw0cNGZ3 UmKtPvQsRLgnK1DeBJCv lumpheiryCS7LZHiLEOv xN51Qs2ddMxzUGNk aIKJvO0anvwyv1enkckq PlAbCBOsYIk2ANu8TUOl iDqwGbTmTPO1AeA2VTF7 eVNjlD5sbNvvqfmb mA5xH3GnBYPzkoydQk94 aI7jEiNrOsN8UZrqQus+ Q5ARJehoAC1JY7uORRyh SzwvdGQ+PHRkIHN0 oUwkPAzxDPXlaS1vWAGm Y8z3SnPhZsM9KPbkA9Cy RLMiowokOf38wW5pGwLc FaM0WJowS9VanxS4 CAFadJHoMAgaAHB1J45g a7H8INBpKPYhIRC6zWW0 oB1ovHcppadsnUJnbTwk dmVydGljYWwtYWxp T521CYSrkIryMbGoRpW3 HmY5GgG3Z4IkHrx6AFJz fBhnOS6woXDpHFjpNs8t tCtatAymVM7wQPLn gswaWVDkqV4nKESvzHOj jNxrPV3gFHGmtdpcb899 OfGqCSR4VRLgjVQlB9Pl nP8nEgBdBNFhXYTf D4WpwZHoXRguE080NHnu PrL1AGEmdlLfY7EtDIAv ePybIyZ7h7O9Cy55AXTN ZWFyczwvdGQ+PHRk BCT6jQapIQbpONJkrS3t GTHyM1i3CgNjRaF6BRsi G2LxGHZnxdlgOp51sO2h RfMkIrS6FOxzP9Vn yvL6AYZvqTItEFbkLSF8 I62tl3K1VKRyCUYxTVH2 nLD0bL0vkChimfrbfATy dDsgdmVydGljYWwt OVxkL035KLTaeXszNg5N YLF7Q2MpIys0RCDypMgv DQ4fyPUjOBkdOj3yuTfu hSrzGI8nOMHsmbvh OGCajD4cZCGuyJTfwNkm CS3vONFnwydyn349FjZj GBE6CQGabJHeN1ItuD1c FuRoANDgQVXxJ7Zp dRJxRAwwU105NJkuTcX6 IGFzjmHhD7FwWVRiyPju TmP2k9W3Eq1MOXkslUM+ FP61og45Q1VeAlnl Bom2TPPpEDS7sAH4xP4r NJPtHTwln3L3jRX1Q9Cn drXivi5iq8cjZBVmALmb V93ddUBrr3Z1RWFo hDB6AICelAveXyFioX87 Oyc+QEJdjEgfa0LjJrat u8wui7vqkSl0PcUdNRIk dnCduDozRAP8m3Vj Ss59A07qIYurABWrZWRf KQLgREVfhUkqaa6msE2j Ii8+BFKseIT2nKF5jG7x OdVfRwY5JGuhQ576 WbPcoWRbLknms2nkc0dg yKg3QbMiUWJlcqJwgZxe AHP9a3TxNl89V8JbwQht g5OtOjn9yo19mANi y5X8iNO9I3GwSZBydvln qOKxpIqzOB9gPFWldmkk JVUjkQ5iTZRyW4g0CaUb TtA7NDbnT7TwkrJ6 YNNwbBDfGNYchKWCtC0d jswbj9jqbwujCvToMFWk GVy9SHq9KPYznPdrGhKt PTT3JfH9VRJ3fGAu vQ5txKtryiptyS0gFax+ JTg6c0gfrLDrKD8vhNJ1 QZ73YF69cJNhq0O1rCS0 I3KzASUgpedstylb iEF3RPMjYDMqtA49Cr0p sIouVn4eODTlCHM5KRFu uDIbQ8XazN3uZnLwCMYg VVOeI9TwuPLrDJvb C088MMqtLhO3ZPZofhCl B1OeEGBwuZchIbS9h2Y3 Xm5QFL05WZ62FW68hQWj f8O3oDO6N8FyZNAp qdejtrshmZJ0JMXpCXVi kY88Jc6irKisPe8rIQMr AYY5SBRznUZoF9KcoG5t EbKlYGPuXEZiK3Cz fHYwKBpkH614EVyuKzW9 MGRatcTzN3AlHBVesMqt JhE9k8S9Zy3IZu89OK51 UT42kDEte1Z7kRP5 C1DkZPEaaubqlhidiLO2 CNWbELCmdX75Lp6frEjn Yv5yIIFjQNY2YOPstAVt H5AnhB9kGwJzZFNp WYSdQ4CnrOEaACbxM018 BSirBnL0KZTdosCpW7Zw JDBrpSdgPvS0f3L9Sn5O MPhgoox4X2CcXffi dHI+GU18VNXkTN49qVSu mBQam0khtPc8HzCqNAQv MRM7hZbuEIweo3OwVSJi I40qnIYyq6W9HWNn bGx (more content not included)... [facility] Coding Summaryon 12-02-2023 Coding Summary HTMLBase 64 QxsxmpavUVc7vGj+PGhl YWQ+BT6FWJCxS22tzGWq bX6iZ2EUBIoJJubsOSQZ VCfOMmDjsiDrNN2pfTIq ZXJu IC8+YI7oSDThNhmueTYu u7Q0eKM6D34cmf6tNDsw vJZ7LVNzHrPxqqdvw3oe uJo7YVztEdtePjCt MWLcxI51GIZ3sG32Lz25 pZHcoTWlm4ymxCd2OnNm HDBnESE4fSmdLNjig4Ez UHLnQ67tjITlx1K2 IGNvbGxhcHNlOyBlbXB0 dH5kWQzrqixxv4fiszpb Dtk8un53oNAyl1G5qMJ9 R2CzjhP6VZAaxVJa YzbbkZYOvN6dictjm7jt iaujRrGfAZZcDXw2UXe5 VLWqhXsaSeCdOI98KGI1 WFUdjgEfS8PxNHWr iVuaPbK6k5S8Wr4WG9PM CivbY9MTWGALPPsraOI+ GW71ww65P0ImFjezSao4 YNFtMER7oIF5lJ3f IWJhPZlvo1L4mJX3J4Bw ayLgag6zu7fqUPSpTOuw E43yvOYwp8A9TMCixKE8 LQKlyOtcQwImdK84 Oyc+YOVwhGrbu2KiXxgp w1mcn9toaYs5NmilKXSl bgYngLfrEUI4p3XwRj1v ZHFsfAA9yJV6kW0i CgPyDwR6FUufG550DcPz oOLzXjehC78oG1TauXI+ VIEuYiv2GFXgzWpnVX1h J9OmJOIiejmtoNCy gZcdLW6pBVMwnogbLEJt iK7jLKAfD8r2EnXoBbU1 GJuwD5QbKDBiwwosEy21 jN3xUcJmGgE0BOla S0FmnnI9MILlmVBqIZuq TND9S53xc7T2UNUcXYTw NZI6uKN5jU3wiLltxxsn bGVmdDsgdmVydGlj LUvbQTgjJ177VREohEab PkNvZGluZyBEYXRlOiAg MDcvMjkvMjAyNDwvdGQ+ YDSyEDP3vCcaBFCa vVYmLCdmGy7gpMfwwZgp MI9jIELzzjvdNTGixR4k WCJvoHMyuPeyFY5aYMVa sygzh953ReNaWTR0 QJRupYKnQ5ByyT4pCoYf OZRdMFCxQ7RreUHyMJfv B211DSscZyY1IHTeqbLd I1CeXQUiyNbvXxE7 y1B9Gv7Wv9RgiyxsC7Mn tDQzRsXsQklxGYq1I6Bt PjwvdHI+HE92MMCvVT34 OGr1ZKW1bApsHDfs IFVuX9KayG3kKtCoXJHs ZGRkOyc+PHRhYmxlIHdp ZHRoPScxMDAlJyBzdHls UQ7aLb5gAHAtINDq qDzcgFPdLqIhv1yaWYKo MDjhYV5uwKmgM7ZuaGR7 NUMyl2x1Eq51W49sG9Ad dXA+FUCpfGA2tIX2 hK9uXaYdBpS9YUpvF693 RcGbaKGmSxwxg1yvh3ao cUd1NcA8TKHmrzTsrPve OJB4v0GzAe13I07v IHdpZHRoPSIxNSUiIHZh aBedvo4beS9iQn9+PGNv oCC6rGZ0hX3hWjNcVmK7 GKqiB370EiKsjKAw Ttyuk4esy5mapPi6DkSo QDVajbFlzRtyCVU1s9Sy Pk42B1EjzNzqn3SxGwm4 ye68kZYal9T4xFI3 W4KsUHEhwrjhwJLfxMqp RL4mQXBmvznsWQEaqG2j QZUuW1j7XdOfZfP3LBok V0AllxN8NOCaqCIg TAZyiYCIrL5fjgqmt6hx qyguJjSsPNSzKIl6AXn7 WHPfjDmgCuJtOHH5MdP6 VIC7hSEcwQ1rrVts krocnN5tUzz+CHD3mBNg xXEYFO5yPvgneAL+PHRk BZM0iAvlOMuxBGVodJ7k RBKkH8h5HfGoSwZ7 BBqjT7GjafI5SEPitBSg ZXUytSVOsC6yogzxd5su muntMzZbEIUcMZl7AFc2 LWFsaWduOiBsZWZ0 CoC8VGO8mSMjsW4bnWva carlrS4gQeh+QmlydGgg QAD8XKg2J5XqLno1XKIz nMdfZZ9pnHGcDBjn Sl5tnZjwxIsgHT7kNCMd ozehp371SeXcp2raFGIv gXUoEMbjUIU4J85bm8Q7 HFMgCHNeXZP4sPM2 aD0pnPaftbbehXVrzKuo uhGedKcbDVqxWLgiR722 HHVacXadRoYaWRz3P1Fz Zpn8QCWvzCxdOK6y gWAgPJgqWf4ziHavhUsj NG4gIVYdrmdwn391HvFu r0bcBBDhwUEeNTruGAI5 L94hq6W2MSEaRARe QBP2fLS7zA5zhAqaegaw bGVmdDsgdmVydGljYWwt ORydD843JKXigZwkTrKd kNy6A4HuKbz3JMYt mIjqOK6ecAHoFGajQz1g lXfpxExySE4dKWEuesae r485XsWvr8ptGGQuiKRq EOjlBTO9I10ey5U0 SSWjQTTrQQQ3fDR6aQ4f bGlnbjogbGVmdDsgdmVy hHnfGUknHKdmC856TBOu cDsnPlBhdGllbnQg QFxaLDy5Z6JwEopmcDL+ HA84ZNIyPM62aFMmtBMr s5vcvTo0UtYkHTSzFJL4 sCptIUbos6JwLAYx X12owOJjo1P0MSSqpZjw oNPqAxOuiMS3zK9tKRwt dydpu8ipognmWmjqz7wy qi96oX42L76oMFoj ZHRoPSIzMCUiIHZhbGln cr4hhC0dWa7+PGNvbCB3 dQQ7iH5pOMKrSsH7DKjq E771MtRseXJaOuiq g0nft3mfbHj0RpW3YUDx lcYujPbsPRV4a8XwQt43 T25mUIgfNYQqZCLtPETl NFDziEvbrp5daO2b Ii8+RFXezFV5dOA3uA0b SuGnZqL7DKijY744KqIf hPLiBvblW91uG0IcjCJ+ THYvCdb6WYYoaHbi LE1pfBJoFDlmGm7sYYM0 DcZrQcIiUSokK0PaIRSi mckszzuczRV8XWRhPTDm sN61Ey2clQbfMDDs kPGQlK5ebdpuu1bauwiy BvHaMGSiKOb3GQz3IQTd iHndDgYiUVC4TxQ1JXL6 eFIheI3ahLdkvrlp iF1cO5ViSTEvfiybBd17 jY8rEdNcClG1XMnhCng+ F0JIMwvdJY6NL4sCRNmg SzwvdGQ+PHRkIHN0 jJdvJQzkWKVztW8nZBVv P4a3FfQzXfJ6NFfnA1Do PWEciumuMv33nW2qQwJg AhB9RJyvJ7LmcqG7 NRWdoQOkNHijIHE3R24w l5G5BSHzPXVrHTS2fXY7 kD5dpCrhixqjfHUsbQgd dmVydGljYWwtYWxp D015IUFkeQeyYjMcHkY2 RqP9PuG2I9DtBuz8HLNe tSonLA6qmVCoZKycXe7q dUgbcJwyIF3fRMRd xqtiSPLmsW1dKZVezJLj oQcwQS8yAMCcrshaq955 MlFzYIM6KXOssVRvJ6Rp xP3wFpIzUBJyMDPg K4XkuFErZFjyN987FXbq TuU7HHJuutLjG5RnHCKu dItnFiV3w9V4Ow58NHLI ZWFyczwvdGQ+PHRk NHX7dUzzQKjfXGIbiD5p SVFcS5d9AqAiHtL9ESks M8ZfNTQomijsUv99eF0a RdGlTtY8DZwnX0Rf adQ1ALRhxFSdLBgpJPV2 X83xz8R1QOCxKXNzCJD7 aOT6eQ9fmCnpzosvjTGi dDsgdmVydGljYWwt FLrkY853ZRWlaRmgBq7W EWH1I6HqPum1YVQssXpd QX6azUVpLLbmHk5svHcv yLztWW3lBNMvqxyn CXGdpL1bTFRqyHSujGsw JG2xNXPtwviqd229AeSv REJ7KNXgqSMrP3LaqJ1u ZwOzTJSdVSHbX7Zd lSAwRIrwO262LHlcQwM7 SFFzjtVwD4HyMKPllCgw KoX5y1A3Rv9JPFmadJQ+ IM86bg67O5IfWumm Jrq3KOZeANE0iUN9eD5z XFIqKBkwh8X2lTB0C6Fu egVibv4cf9ugGZMsCPsd V43gjXZfm9D4PXTb aTA1GBGgqKlhCyGdbK69 Oyc+AUBplLbnq6AbKsmj u6omy5myuXi0QqZmKUWx weDvtDauDZZ1q1Ot Lq24A77jXJaiCEGjTEQw GJJtTJNwjYlphi7viU1q Ii8+TAYuaZL4bAV9yX4e RhVzMhW1REpeZ985 GmKrvTWdLlyuy6ode1gf xWl9EiJrPJXmcqOwtLxc KFM1y1GrVu06K3ZuxUdl a1XgSqy2iv88jNQz i2N2oMD9A4LkGGMfssxj iBBouLwcKZ7wKZTfvbpl DYXtpS4yNPLdD4t1PoLp CbJ9TUruI6JclsH4 TLKnpUSeDRTwmUVKbG8h sboao6mdiwuvBhUrPAKo DLs6UDq2MRVfpDbuCeYu NOA3JbZ6NOE7oGKb pX1miVlzsvpzfB1kHfc+ BHs3p1xnmNKoGL7hkEK4 PQ35OG28gIVls1H3bGR6 X6EkMXZjkbeqhtoj kFV1VAEhEPTboG94Or9u jQmbYu5sOXNnYZF2QYPp jYKbN1WeqN1pIcYfIUXu QOGmQ1QnbPNvOMgp V430TNzfEhM1HKFucnPc U0NvFTOlfFlbRsO7p9M3 Rr7SBN50QB78UF46rQZp g8R9pKI2Y2EtRXYg mqgfwyckyEB3HLKqUYOo bF96Oq3icGnkTo8lSBLc CKY3CNAktAWuN4YezG6h IxPfJPKuNMQaU4Dl rREvTErhJ510HIxaPaA2 QAVxjpMwK5VvLDTryEpu JfB0j2S9Gz8NAx22ZO65 WQ67jMOsb0I5lKC0 Z4CcKCAbpemvfzqnzMQ0 CULeVXWmwQ93Eg8ldPtc Ak6fIQOsMEE2MNYauAPw H2CorX9dTtFvXNFn RQZuX0ZzbPFxHWicT094 DZksMjE2FDLgicDuL4Hk TMHbgRzcIyF5l6N3Fl0A BRcxpfu4I0SmJxjd dHI+PH23VWVtWK10cJFt qIGqq7awbCg8ZqOtPXNf OZE7zAjzXHqmo0XeINCh I73gnPZbp5A3DHQk bGx (more content not included)... [facility] Wound Care Noteon 11-25-2023 Wound Care Note [email or web address] Note [id number] [email or web address]-2023 Coding Summary HTMLBase 64 ZeeiwdloBMu9kKu+PGhl YWQ+ZX7JLTWzC67vkWBt mT9wK7LIHEhKZvueFVLQ MXgAQbNrolOwTC4edSAg ZXJu IC8+AE6gAIVaYhfvuZXl a1W5wSX0D65fza1rEGlh mLG3NIOjZrZuzkrnh1ij rNo4TQxfVfjvCdZm TLFutC60XUF9iU29Jc90 lHKekMYlz0wznHc9EmYx CFHwASH3sVcuCRefw0Aq LTKpN73stDSif1D0 IGNvbGxhcHNlOyBlbXB0 aB5nILyuiexpc5delrhk Jql4tz26hMRar3P8lSX2 P0KlvsS3IZUwuCUf NoqgbGPZoP8vsuvwu6ey epgyVmUyMHOqBPd1GLw5 NMKhuJdyZhBjQC95PYT7 SKEwbaChA8DmAHNb fSldBfA4z2U9We6BL1HR HgcvE9JSQTDEJCyuaYQ+ PX79bo31V2YhPnkmMfy7 RRUyJJS3yAV0dW4m GYQjZUsuj5C2uRB3C3Nu pfWbrk0bl1dsVEXzKFot V77ojLUrh3L2MYMxtZT4 NEYyqWphXuZkrK58 Oyc+RZFsyQngj2BtNkhz d3lgn4nqfIx8GntqSXHp veAtrIpbFSV2q3ElWj6d WTBatAW1xKK3kT7s VqQoLiI6FYepT797NrBo cKApYvcaQ39mQ5IxhKZ+ OTNyRka5WNDomLugNA7f M9JxBQHawmgbtJSe eIluED2vUNGawejqSTFk gC4sXSCzH4k2CbWxHnB6 HVwmQ5ErREObdrhePe65 iJ1yBnOlSgA2EDlv Y5MiajQ0GQGniCToVJai CVI8Q10tk7H1QGGePJLn XIO0tTG6lY6bwPpiazyn bGVmdDsgdmVydGlj QWznTMntP976XZArpLta PkNvZGluZyBEYXRlOiAg MDcvMTAvMjAyNDwvdGQ+ VHRwMQH1gXxwIZAg tYGlJIggHu3chEiezYij BN1iBAGfxcyvIQMvjG4s CYWljLCwxIeaXG3vHUFy mgmxw844ToIuDNP7 GRCmbJOaS2CmsI3dZfZn ZAFrSBCgG9GmtVQkTUie G688CIlhBjO2AVTczuWb R1CpFXCtzGosUcU8 n1D1Rz3Bz4ZittuxF3Nw yLBqCxEoGbxqIAt6P4Ub PjwvdHI+EI57AKQbUU40 PBb8WBS2iTnbIUdp BZFwA6DxwE4iGjJyZBLl ZGRkOyc+PHRhYmxlIHdp ZHRoPScxMDAlJyBzdHls WW8nKd3dFFLuMAXi nSewcEXxEeDar9wgFHJy KDxeEM8geDsqR5NgcJL2 MHDvc9g6Wg04H45fT3Ev dXA+VCMyeAP7mCM1 bK9mXvPgTrR1ZQmwI648 XlAekYIdBqdvh4lhx7jn sFd9CzQ3JZIfbtAohLna ZXB8l3SoPa72F84h IHdpZHRoPSIxNSUiIHZh rIznyz4zcW0iYm1+PGNv pOW7bZE0oR6xHnEbXdN4 SCozJ445MpJnsFSk Wydxv9qnx2zfjKr4BhKg WESgnzMiqKjiVJA2j7Pp Pf97T6AzpIhve5EbLol1 ix77wRGdd8Q1wXO0 K6FfDUXmwgxozZWvcPbj HS0pKALzyasgPKStwF8z JXOkF5x0KsJtFjJ4IAbb G9SqasK1RVLfcXIo YPJapICWiS2xjelch4tv xmeqNzRoRMViVAv2DZf2 IRQnpLvzRnAtFSC7VjL4 EJC9wFYlbD5wiDlk wvrlcZ4bHme+FTH4sQFb mGORXM5lOermqNQ+PHRk PXQ1qZsyDNpwGUQqlS5k VEEjU0t0XhTaYuF0 FTlzK8WtdoP3YRUkhHNe UDWksGFOdW2fizdrq3ob ikkbToGuYNMdXWi2KXe4 LWFsaWduOiBsZWZ0 ZrN6ILT6rGGhkK1ppSaw nocfrV1yUnr+QmlydGgg YSX1VCg2Z8VgAwy5BZVy jRzrSN8kwHYjUVmi Me4cbQezjClfZB9qDZHz kxhxq647WgTur2tpBWCd lUTnNKxwDVQ1B02iz6C6 ZCKpWSSuRZP1bTO9 gH1bvFnhlccgxHIaxQlf omHigMqhNBkcRLncP173 FDWkhJfzEjHkPLx0M4Lj Lxv4MQFahRlyFQ1n bZSuZFtaTv1noYeicZox FG8hWKCvfvizq693CjQj b6khXMGdhQOgZBvgFYR5 G94lx2L1ACAvPDEa REI2yUQ2yV0mnAceyglf bGVmdDsgdmVydGljYWwt DEgiV393VERxbOseKbPs mHu2Z1IyExd2NQOl rNevAE5uaINdQVtyEy3z dVixeDeaRK1rOUBepdpz l945DeHzx0rrMWLqvMOt IBvdXPP1U20jd0G9 BQQlBSJgNAL5kLX1lJ2a bGlnbjogbGVmdDsgdmVy fXzmRQvtFYcrD567HCOg cDsnPlBhdGllbnQg FUzaCNa1R5GvHenrhYM+ KW50QMHsJL00mYAujCHa j1capYu4HxZmHVJaOWY1 rSejIEmgg0WxQBNn S44tkACap9I8RXZlrTmk hIKhGbGjlES7lL4wKOzq vfdig9mruzkdLuqzf1gy qt42fH53Z95xWBmr ZHRoPSIzMCUiIHZhbGln fn5hkV2pJr7+PGNvbCB3 jBW3eY0hRFKhHoQ6UIun N932GtUicJYjHjwk e5aek0gnbYq2KcJ4OJGg mbLfaOafSFS1p1QgId61 N29bIRyeCWXoUPRsZJVp MWDbsCdexq9bqM5j Ii8+XHWmbOK8cTZ8xV1e BhNxEoW1AXrfG206QiOy oNWwKuccG17fA5RgcRK+ EJCeXuc2GXSwkPok WZ7dpWRlXBhrJf3iLAB1 EmWuCrNqCQggU7HgLJXo qstcodvzdCD9ZDMaCNAb iE82Yo9adKgeCSCt sSNBoI3uhtzkw4kslbrm AgCxFNCkDXr1IAe5LLEw oLknWnSpEAB2VoP0UML0 xVSxvM7erUqofdom iS7tO8EmDVCfhwgeWf71 aY1pZzRdFnC0DDmuSnn+ Z5FVPvomFW5IL9sAIRqa SzwvdGQ+PHRkIHN0 uIowSRyrNUTkpE5iIWFe C8p6WrVjDuQ1EHwpI8Dg DNBxfmjwLh89hI2rRhWp UdU0HXonY1HoclC2 BPGdpHFiMFyiEIW5B73l j4Y8NQSpJPHjTVO6jDQ7 eO0epGkcyytooNVdtQgc dmVydGljYWwtYWxp Z445FYHngGruKxTePzR5 NvX0XoV9O3MgBjv7JGDp eWwaLI4neTDmDApvFm3k kLfnwUhiHO8wHMLa lujqDMTsyD6wUKOjkVFo yQxtSS5xNWGfwyhkh429 LcFtQLV8HJLchDCbZ3Rj nU6tRtCeUKBqWMSj C0FumGCqCEqaJ449SGxl HsH3TUHrrkCuQ3PyJFDa aLosWvB4k0L0By85HHLA ZWFyczwvdGQ+PHRk ITH2nWtkRCmyLVZfrE3p JIOtH8k1NiPvLlD3IIfi C1BrSMVqnzkpQq99kJ5s XzCvVcW1COyeS6Au llY8TWOmxEYhFNrjPQQ7 B13gn5E3OMEaVNWxAIE4 rPJ0cA2bsOknyhxicGDy dDsgdmVydGljYWwt UXurH748CXWzyDvaVi9Z FVT7G0TaWmv1JZGbhSoq YG9fuUAxZSdfNw6ziKix iQogDJ7kLEMvrkon HOAbnU5bCKYvmSVzrJfu JB3zHCZbiegwk788DcAy WRI7FFNijIHgG1KhyP8d BuLaKKNkLSOdM1Or jSJlQMyeD878IHjiUtR9 GEEqvlEfA0YkGSFucMmp AgX0v4U0Uk9WLIlmfRC+ AV52vu68V5RvCnoh Jaq6EDOeFKP9oMR8yT1q YUAmIWnhf4T7yRM7V8Wj kpQkjx8yb4slIYXdUYcn C05mvQUwn4M5YMZi pCS0MMKqfVhpJsBroG59 Oyc+NQQnmDqwa0ScZbtp l2yrj4gojZd0UxLhSYEr luRlbWxeDKE0y6Yy Nf38K21nGXqtFPGwSTWu APTnFBIvqDnuvp1doM2n Ii8+RJEtkXH7qIR3iL8z HbBtFeY5IVjdH150 OmJueYTmEuyje4cvp4yk vGm4JmJpKTVhwdSzcAov OSU0o6RxRa63T5JoiSxc c9JoZei1uw37aYFk o5F4tBX6T0GmRQFrkbqk aXUkgGufLL6uPMOwifyv SZVbbO9kLEXmG6x9GqCg GeQ0KWjqF0AucnC2 HKAzqHCdVEPxcQMRiR3f nbuug6zcjvwjRdMuMOQf LNl9RMs8YUDmkTixAaXy UDX7DlH3FMR6pZMl qB3sdSkfmglvfB2yGjx+ WMs7k2rudUWzZH3ygUY3 VO70QI36qJKlx6E6gUM3 C6ZdCCEvxaizully hFX7EVPgVNVbcI25Hn5p aJliZf4qLWGkWRQ3SHRw qIOsG9BnzA4yCwDrZKAl OCRbV4NzqTBxJIpi U056XLnmXpB3FSMpnuFo O1ZoPOMmwJteDzY6o6A3 Mu7KRI75TJ60VV50oLCl s0N9dMR8N9AaCHDu veoghdjkzVK4JGRiGMQl aS40Ps4vdImvAy7mBDGq LCI1TFZboYNxE6UdvN3z WjKqXJEiPNVkE9El eCYtTHuuI537KMdoDyC2 QHFhndZlR7QhAYAgkKfo CtH2h0N9Bd6TNg84KX50 DH88iAIou9C9iMY5 W0DqRKKfnndgqygcbNO4 KIZyGEGgtD86Ez4ofEks Lm0eEALwIHL0KGJfnAYz T5ZxbZ8iJwDqXPCz IJWrI2MpfMDrOYvgE008 VZdbEoJ5FUHnbfSuX6Uv UAAmiCfcDjL0r9P7Lt2P ILiwuns9Y6ZzUozv dHI+HW95LTNsFI84vIGx zQAbm0iadGp9WrMhHRSt EMQ6aFxeTLogq9CiFNBv D98zwNHho5U5FVLb bGx (more content not included)... [facility] Coding Summaryon 10-30-2023 Coding Summary HTMLBase 64 TficehzrWEm2uFn+PGhl YWQ+SD6BILCiV10ehHIu vQ9iZ9RSSDtOQtbzJACI EKuGKvIqmxStWL1bfWBo ZXJu IC8+DE3lYMFvMwwzbOQb j4S4nZY9Y99aln3zHTnj mMG4BLMjJtRorcjtf1mx zNd7HMfoTgtjJxDi AZVcwI00YOC7wR18Dm21 fMQqwLSyi9vzcFr5MdTp LQHhPKQ1kVyjUQorx0Lk SPPiF61rfIDyw6C4 IGNvbGxhcHNlOyBlbXB0 yR5mZIlynizjq9dbuyvq Qql7ex53bWCbm0I7aQF5 H9JnkrW2COZpfTTk ZsouiPUHxB5pzfcsf2un tycsPvLhKEKoIWs5VOa8 QVVlmVbtHlZiZU46IJK6 WIXtpoYyZ4YxFUVl iMvjEnJ1e6E4Ct6OQ5WQ XatzG3LWCDALYYuolIW+ IZ88rn19U6CkAwpyDqd2 ABTtFKC4qGD8vB3j ZIBeCTimu8G8qVK9S7Sn ppSjvt3ri6cbFCRzRFee Z25cjUHcs2T9RLUayGC6 OCDliQefAfXxwU24 Oyc+YHBetZeqd3MqEuts o8kjg2baqOw6LpgrPLNi izSqvUnfAOV7g1NrBe7a AMGasLS8qZD5eM7r UjPoHnN9MIpbS370FmSe tYUjKrgyE45qY8JspFW+ MQBzKun2WTRpjJrnFS8p X5UzEFGxliqnlKTv jPioAG1qLLDhhgbbPLMp kH2yBLJmG6t8EuWyHsY4 YDneT7NtATYbcgrfXy61 pG4nSeMmIgX5AXky O3XjzfT9PHYauJQhMYoz GDU5Y36ba8B2NWNkPGRk CKA0wZE8vI0jzPezffpn bGVmdDsgdmVydGlj FJcnGNmqV802VDAleJcw PkNvZGluZyBEYXRlOiAg MDYvMjYvMjAyNDwvdGQ+ DTRtSYH9aRiwHNCo sNFpKUxtHb3ojLhheXtx ZZ9iHGGbnxumPVLaaO4q NOObvYOwfKtcRS0lLKBe rcjjp126VeBbTZK9 HGDzoAPxZ8FioS6sToJz IQXyQKShZ7MawIAzXYme V541NZbyOfQ0XCMzpcPq I1CjJACcwQxkVnS3 y5L6Gl1La6OclqozN2Js eFYdSrBsOtghBAu8H9Nl PjwvdHI+QV23BKWiIN28 AJi1ZEN1kUpqMElm HPNvF6YfqC1aYvDnQITv ZGRkOyc+PHRhYmxlIHdp ZHRoPScxMDAlJyBzdHls PI5bCy8yNKXnWGMr rHdetSJiHzXkj5fcTADk MJrkQY4teEaeC1QuhLI9 ZWWax4y9Xs94V89lM3Ar dXA+BPBklOB0xZQ9 bU1jCqDtRaA1DLhsB599 YxFujCVzQuhfu7wts9gs aGq7OpQ0BQZnblYgdKbd PQL8j7KlCc10L29e IHdpZHRoPSIxNSUiIHZh kRabla1tsL2qUq5+PGNv gCQ5wGV6iJ8oNkXzMwW1 YDxtE930PyDgvKSw Hovpl9fzz8jsdYv2JyHt YEZbkzTyoQuuFBY3i1Wu Tw06F0CegVise9EfWhz6 vo14dAMjz2C9uJK1 M5VaZGZcqrwtkPNztYzc YY6tYFXrpoaqWPBmaA9j JPVmW4z2JjSeEbE9VKkr Y5GsygN0LPWsdGRs PUXfeXIKiT2xznetj9jm wfnlIrQcOKEgJCk2VVa3 MSJhrGyxGmPhOGA1VbP6 TTQ8vNNrbM6sdUbu kqffzL8rJhf+NQK2lSHv uYGHLK3tMgdiuWT+PHRk EPZ7kOfbNIwvGBTgcG7p AEXwQ4h1TcOhSrA6 NMmjL8QuoaE3ZWHlgWTe STSqaXIMnZ6paqqtb2rh hkjyLjAoKDGdVWw5ZUg0 LWFsaWduOiBsZWZ0 NkD3WLB4qVZcmL7pfJix qygiiI5aKqu+QmlydGgg YQI3WTq3S7ApSqv9NWRq rXtaZW5klKAkIHgv Fw4urXvbnBfsHV1zYXSl ypwgl286BwXxi0xsYQKr tEAgGLbpZRM0U99mk9T2 PLVzNAFjMQD8qMN9 sJ7tuMkzzixwsOIkxBba waFhxHymMZwbCKiaG731 CQJmmKlyRnRpKNl6Q4So Xtl6FPPlgShiXV6z tNJuGDcxAr1tbVkefXwm SN8yECGlqluif721DgLv q8hiIKPmqYJsUIgzMUB7 R15yr3M9ONImDMDi DGT6kJU1qM0zfCqkczcf bGVmdDsgdmVydGljYWwt NSpdI416SJDnxQtnTrKx xKc6A7HqJxk6YGWd fTmvYA2cjOYeEYayJy9z xIaftLrxMP3bKFZuwper a514VzOyr7tlYVVbeAPf MMlzIWX4Y82jz5P7 MKGkRILrEWW8aGM9zI1d bGlnbjogbGVmdDsgdmVy lFjxZNtmHTdsQ273NQVq cDsnPlBhdGllbnQg LQkcYFe0J7JwQxpblXF+ PO95NZAoHL72zDLmfXRs t1gjwGk3JsOcQOOeIBL8 uHmsTLkql1DpDGUa L78uhLScl1L6RGTfnFfy gWQwVrWjpHE4dF2fRUdf lsmln1onudhgMmnlb5wf di29yG11S80vDSuf ZHRoPSIzMCUiIHZhbGln om2rhJ6hPd5+PGNvbCB3 oKU1wL1sOEKlDhL5GJpe W538IzAhrKZbIwia d2ilo0phmNq6IwJ1ZUEl goMucAkjGTZ8w3HcKa55 M36iDKjbPEBrUDVeERZw DHKjhLfhav7wtO5l Ii8+SUZhoBM4lYQ2fT2v HrNuFlR2WKliK335JoQu uPRjAhjgR61rZ7XfbEE+ ECNrDqe3EOTguGfu IR9bmZYxIQasXy4jFSD3 HsKdNrHzYFlaO0JnFLWn mdjxeqcanRY4RUTwDGRl jW92Cg9myPvjJGOc jZIXiP6porxsb4pshqlv VlKvNDSxXOh9SAc9UTBl kLbuTaYhDLW2LrG3JDP9 kMUjtT3qeYmzhkcg uF1pA3DtXAZxeiviMc59 yW3hFyOkKhH3BCokVvg+ X1DLVnyjOS1NY3aMNAjk SzwvdGQ+PHRkIHN0 zJhjRGjyIEHjvX3pWVJy B2m9ScMrQxH3MWykX1Lf YUTjhomwMg88fC8aXlZe TkG2OMcqR3UjueO8 DSEmtMAbFIhrHCO8Z62w c4F3PZKhTNCzYEJ6tET7 mV0aeQfiblxknGZhtVbo dmVydGljYWwtYWxp J842RWVuaHnuCoXhWuA1 WuA1AnD5Q2OeJie5DWRs pCloGY4qwRJtMOdaFn9t cZxgxCcvWW5tSKZe jqhuBHOuxQ6cDKMjgRCt vNaoCY4gLALothiey149 ZlNgWIV9GSBwcPIaL2Rq cN9wBtHdGOZwULBg U1WhoTBgZZgzB132OAgb YiC9UKNlceVzC8BaQNNq oSipBgH6f8J3Yx54HYZB ZWFyczwvdGQ+PHRk BZM4yStiCAjpLZSdlU3q KIGaU1k7PnUaSfK2QQwz X8JfFZOzjactAh02wF2s HcCpBuN5VFmdT2Zi oqL0VHKlhIEfODvaGMJ0 D47bg1V9VVTsKNRuBHY5 nIS6aZ9eoKrqxzzsoBVn dDsgdmVydGljYWwt KApeD504FXJtuNtlRx1E BED3G8LhLfy4ASScyEye MY9bzYJeIFaaDz4rrAgh cDegFC1vJXZbfedt AEUzdM1oXQMnjAGalPkp CK9jQBWsadgjx315MeDt DLY5VDXsmGWbN8OagM4j OkItEEMdXWZoD3Wr lVIdCJcoC087WIkbOkA5 MFEsviKyJ5ClKYLjrHvp JgG4t3T8Bl2GXXvxgMP+ IY61ja74B1UpAfgi Zua8HWOfRNB5hZI9oL0s GODfVMsdh3O1eWH3K4Gu slOcht9va9feZAErELxo V83brLWhn3W7FWEl eDZ9GCYtjUusNyFbbC83 Oyc+UWInnVcmt8IjBdpv r4lya6iptDl0WrEqCFKj exZsjJiqYUY8r8Iv Rl22A38qZDhbQLBdTYQu HMElVQYwoIyxjg5jpL9j Ii8+RJAjkCM1jKI3nI4r UiVqPzO2SFimC841 HkWyjEGvAfequ9xvv7rx vDd1DmMqRRYnrlKxbGbc NAZ3z3ApCi74R9BhfEgw m8JdIrk4ep39gIYt g3H9xUL9Y8WuDUGvolte kNWyrGleXN3pHXWsyblb GZOhpM2uQGMmT3o6ScUf PrS9AMxiJ4QylsN0 DKJniAAjPDXpySPAuE5q pckmy2jpslmlRiXoDFKj RHt5RLz3NUZfwFtxWcNg NBU7IeO3CES6jWZh gQ8bePxrhjxriT8pDgg+ MUi1t7tvaBKtJJ2bvKR9 UN86JK46gGAkl6P5uGI1 N9WdRTDdfmphikjv aPF8ZAPsUWOkeL96Jq9d lEmfLh4qHPJtZTQ4CWBf pZCxT2HffC4bZdPmPYTk RVHwO1QswKGcBKwy Y399RTyrKmA0YBSothGs T1YsXQMoiDroOrW5l2P0 Bk9ZKL13XO34BR85xPAf e9T0zMH0C2JvDWRe hnkbuxdukWC3HLDyMNTs gM87No3xeTeoAe0sLMZl OHU7BEXgdVEzG7WtuI2h VbWsWDMeIFBlP0Cm jGObVCdrF973SEugWxR1 BIZzzkTrU5GxJEOkkZwg MuA1l6N8Th8VDo81EE15 UT12pYBwa5J5uST3 M4BoUIPztkvigcaovLN4 NTTgTBRonL07Bv4nxJom Va6kATXpSMW3PBJtlWMi T2NfoY0eZdJzZDKm AJPgR1LqcMEdRBdfV405 PGmdZxN3RBBmvnGaY4Da RXCxaPhxDsK6q7M7Uu0Z ECwrrky6M6QeEpuh dHI+IS68HRKfUP17tOWn xDSru7lafBp0NbMtFEXx SHQ9lXtlKKzqw3GtCIKq B93mxTAvc7D8IEKt bGx (more content not included)... [facility] Coding Summary HTMLBase 64 RdycticoSJg9yWj+PGhl YWQ+OR5ENPUwY19bqMYr yF1yI7DZTIkBWzniEOEZ QOyPFdHisuWvGX5xiPHe ZXJu IC8+VN7aTVUaRspfuTNj c8H7dIP2X60djx0iKTvh aZR7QAUeXpVdqgkjt0tk xVi6AWylLlngDtYj LHVxeO12EBA3sJ07Uo38 wROwnBKaf9zalJb4EvIa TAVkZMV8qIjkNXjmz6Ii PCIeH65smHRjt0O0 IGNvbGxhcHNlOyBlbXB0 sB1wUQnncybjl2vsffba Lyr9hg16bEXrs6J0fEQ0 K7CqchK4EZUvnLOq DhpaaAMGwD1boebas8vl gethGoEyZGXxAAn0EMs9 EHJbnBvwWgAzXO21TMF7 SIToslMpL8TgOZIx oWrpSyS5y6Z8Xb9LP3BZ KpdzK9GSFIPXMJdwsQR+ HH07jl42D3BvNkcdZpu1 VNBoPDY6eJP1qG9k DTSmBCcfa7B0jMW5M9Sp zxWwxb5qa2hnGXWvQTmp K56dzYDka4F7INQcvGH6 BWPmeWogGkUxnU03 Oyc+NBDqcLxgs6FyAqqz t4haf8dadAx3TkzkBSYt ppLigVanRFF0w0AbYn0t KWWoaYA0aJR2iP9h FcWbZpJ1EUzpR956WkSk nVZyAhdxB25nV9FvtHX+ NINmApb3ALGmwSjzWN3r C4ShZINgpaccaIGu aHlwXH3mYKMtxzfdGSIh jK2tZCOoP6h3NtWxHdE5 ZMtlU7XuCHPsxxitCs30 yJ8xQpHhAvV4DTsg B5IyjwQ6AJCssIYpNTwh SRE5V67al0T9ZRLeTQNj ZLD4rVQ8wU4ceCrciqkh bGVmdDsgdmVydGlj DZkjFPblA805VWLliDla PkNvZGluZyBEYXRlOiAg MDYvMjYvMjAyNDwvdGQ+ ZHUlTAJ2xMorHXPj cWJbAZzeXa4lkJamcMvg KS7cUTYvvgmzBKJtyV1q PXElbLDhmTvbLP6xROHh mukkz827RoKqGBB5 NXIoaKQnJ5OtsP4oIpSw SAKsFNDsZ0OhdITrOTwl F858OGobOeT7XROxrcLp A0FjGEIsrAtbSdK9 x0F8Aq5Eb4RdbaksP8Vx hPTgPuQfLpjbEZs0G6Bd PjwvdHI+ZX74MBJeVL11 PAy2IDR5fJoyDGkv ZZMlD2IwbP7hFwZoMMFq ZGRkOyc+PHRhYmxlIHdp ZHRoPScxMDAlJyBzdHls KO9vNv7hTLThSSZb xDlvdQMvMqRjw4sfGDYo FGrcBL9pjEwlK9LjgTI9 CQWlf0c2Ys17B98hY8Td dXA+NUWxzPP6iHX4 aZ2oRaShVpX3XUrxF757 MbGpkDJyYgobf6ooh1qk jNj0MbM0OIIhdiGrnSyh RVU9v4DvCh35H49r IHdpZHRoPSIxNSUiIHZh eWhicp9njI1fFb1+PGNv mXX4eXD0rI9fWxVlCyF0 LKkiL723JfPbeZVr Pjcqn1nrm4dyiAn9JtCp JLGdmjJscVmaEIO8v5Dl Qp53M9XyeRisq5CwTgd9 nw65xKZaw9G3mES5 T9XeXRUquqwjwQUyfJwn RW7xDYGuihmcMSAgkB4y QVAqQ3w1VtSgSdR2PLeu K8EfbvL8QVAeoTGi EYSxeTWNsK2jtqcim0ua scvqLpGoBZSmOQe8OHv9 TNPnmOusWxMdYXC7IvE2 GAT8oEUebC0cmPpb sndszA7qIpa+CSZ8mEXl pJQOON6pNdwhmEP+PHRk QYL6bJpaOGtsNZWatT7c HMPeT0u8WgIgWmH9 SQkjF3NwzyQ0JBPkdGEm IOQbbVKFlQ3forzkh5bk kdkcRwXqRVCtIRj2LUu3 LWFsaWduOiBsZWZ0 SjR9HTG5uLKuvH5gxEpw anhujB5bGyi+QmlydGgg ANJ4LQk8Q3TcNog8JQJu lOjaQA8xgLWeMPyb Pd2ncZohgRabND2wQKGi xetmq229YfYfz6fjJXLz tAFlXIapEFU4A76vt0Q3 UBWfZWPeHYS4oQO7 dF1qfKutyopxgUXxeMmi fcVerBhwJGnxBYygN937 CVPtdMfhDiCuWVf1X3Me Euv5PSRlyPpsPY4e wXCxOIprVa1cgKurzGev MW0hAUVkfvopt978LlPc r9arFLNdcNEjFAvcXZC7 P38zz5X0WWOuZTGg XGA9yOB9eR7bhSmlsdeb bGVmdDsgdmVydGljYWwt SCnjG088HQUoiRwjUtAb oUo3A5VvPzk5MDCs oDerDV1enNKlRMuiEj4e eEpccUrvAQ1bGPPzdplt r188EfIje0wlBOFjpDHf IHudMTV4P93lh1Z7 MOEgFHOzBRW2ySP6lB6y bGlnbjogbGVmdDsgdmVy tFavLXgrZJueU117OFRx cDsnPlBhdGllbnQg GWcyQIu3F1CiKcevnVD+ SX26XAVnDH47aLIazRMz d3hwyFr7VsHoTLGmWTG1 uOsnFWwnr7UjIDJx Y58zdMIrh1B1RRMpnHof kRTeEcJfyJU9dI1xKOrm zttcl8dzmvnzKyhjl3bo vz80qZ07R78fKQbh ZHRoPSIzMCUiIHZhbGln ku5jpL2bGj5+PGNvbCB3 dCY8sS9qYHPtRjY1RNrm Q672MfQkuLDyDsoq z8eok0yplBy6XfN6HJJm gxBptIxvUDW3k7YeCq59 O91vVPilXGHpVOHtWUIe TSUbsBzkma6poQ1i Ii8+FQAqxPB5nEL9gU4v TqHeFaK5GAnuB123EvLx hMYxOvfnG93vT0VfyYJ+ PGNoTwh6KKUbgEmq JN3taOQhFChgAp0gJZY5 RyXtKxBvJWqrD0DsVPWq tnizqkhqeHF4UNRpFZXc eE25Lc6ztVykUAXk mRGOxZ0msszeg2nmuqgy XjJzMMDoWSq8OKr7QBAh tPnrRbQsUUC2JcU6FSY9 dPCleA8ixNhxipqf vS9rO1VeMXRnaonsFt07 zE5lEvOePrN9JVzhIga+ L4XWTokiEB3HQ3xRLKij SzwvdGQ+PHRkIHN0 pGuaMPrfLWVdnH8lCATq R0h4FiWuKmM4WTpeT6Ii WSApmexyZo28zU7mLhCh WrB5HMozZ7FxazV2 YMCjsLNgNJdrZWY5O75d k4W8XMIqQYHyTNY4jMW7 eX9vuLrfbazyrALwnWqn dmVydGljYWwtYWxp J908QPYqlZupStZgRwB2 ZkG3QrU8F2HqCvt3IMOw eLqyVI6saHNrNSsrEp1a wAfxwFgdMI9pYUYz jjlwDDUjkK9rEJYbaTFu lAhvCR2fXPSejkrhx656 XbYhDRF4HACxmTBtX4Qe yR9tJgPfKUDfAXRe T2VtnZLqEDucV733QHzn TeL7SSTauoVaQ6NvHUXy sPiwDuB2q4L4Rs81OFYC ZWFyczwvdGQ+PHRk ZEF9qKheFPdhKTDwwB9n CJRdN0d2VnAzZrU2BIsa J2HlFGGogbwoYl17gM1z AiLgJmM3XNqfJ9Jo veU3QGWunDDdKIctJRN4 P77gp8M9PQOaEDPoPQB8 aPC2dY5icBbwpwiwyGIr dDsgdmVydGljYWwt IQivR734XTNrpVbsXo5M MHB7W6OmUwj4MEGibXer OQ5fxFRsFVvyJq6ziQll oOrgYO1jDEEzvkle NTDqkH0bWFNshHHfkVbl TT3nAEGrmiirv159NdDm IYY5KQLhrDZxP5DgnW4l RoJwBEWfCNThO1Zx aLFnIXgkT859FJlrTwY9 ZWKayrRaM9AaTWPvwGcs XeO2o0C0Wf1BEMjkkLI+ GJ44ot29P8YgXesw Tms7ZBDqMJY5yGY5cB7f BSEcLObxx8H8sPY0X9Pc gcGmce9lu2urCYDlBEen B23ppRLay6F7SDOk gOL5FUSpsHtqRpFibG68 Oyc+MWWhzIpsm2QhBjbm a7xpo8lrrMq4KkPzRBUo ouOexTmbAYC1x2Vf Gs44V85iRPziKSVpMCOr FZAjZCMaxIagsa3fyT4u Ii8+KJPonOL8zFY4vE7a BtRoFqX3FQumP818 TpIurDPoEnvmv1ewo9qi gTk6FoZmWWNabyOkuWvq TJO7n1KkCl16O4UdaScq g4WfWoq3bq04cRVz k5V5rLM3M9DqBIQyjxsi nCGucDggIF8jHUNdmdki HZAzjS7tDCLpQ3q0HeWg VfA3AIbzS3GyzvB8 SRRhgQAcGUNpwIZAxP9l zdpwg3gruaclWfWsJRKb UFs8OWq6SBIhnJnbGnEm LWN5GtX0MTD7kWRz cV7dwXxoltjjaU9fBgp+ CLw8l4lvwURmQI2wbHK8 LC31YI22lJWdr6S5yYN8 U8PqDQHyrevjgdvy nUW5ZJHmJSEfxU68Ji6m pJzqEe7kLRSlUDM1PIOq iCSbZ8DlxP5sJoHsQIZa DWFwB4YruGBmLPgz N516HMufIbA5APWveqEg A3OwAWTciSiaLzC7f6A7 Ol8SIA62KY30UP09cFJh g7R1qVB2S2PhOZJl blknhxtzyFS1UAHrJIEh gI06Ft9fkOkoGh2iCGFh SIF5TLJetPAlP1NfeU8n CpSvNMDzMDTgN0Ta aBOsJXleB624NTruImY4 DWAfsjUoO4AnKALxaOxr KyG3a7I7Si3PDr53HW85 UR21sCBzl3Z2pSX7 B2ZtZDBmnznlwtnqyKH5 MDCqSVVibC91Qc1iqSkh Xk4mNOAyQKD3UBSdjYNy L9IzxM9tAcUaORHa DOYxG4LdoBDuMCfqI714 YMskVtU8EMDuasWlB8Gj AEXbeVuqNcM4b9D3Oa6L JRdnhla6L6FnXxqq dHI+CK86ISWhMV46kEUl mMEva9rknLl5BpFdHXGt ZRI9tTyoHAykj2VvPKHr O34wgHCaj3F4KMUn bGx (more content not included)... [facility] Wound Care Noteon 10-28-2023 Wound Care Note [phone] [id number] [facility] Note [phone] [id number] #1.00[facility] Coding Summaryon 10-16-2023 Coding Summary HTMLBase 64 RhezghgoGFf1nGo+PGhl YWQ+NF4ANRGoR18iwIYp hQ9uN6XXEYyWBxgkDLGM TCsWHkRzivMfMX2iuYJq ZXJu IC8+HS4sWVElBkedvRBx e6U7nPL1U63fxf6xHXxz xVL4IKEwBmAznncxm6ll qSw7YGagVuozEcNq QBYqlJ28MCS1pK04Sk69 zGBrbWIft0dmeXb0ZzSb HXZlPNL4aZbnVRxdn3Vt ZUPjS10vcZHjq3L3 IGNvbGxhcHNlOyBlbXB0 xD9oXHolzakjr0clhipl Uet9jc37sHPtq6A9uZQ4 R0OjxwA8DUAepNSx GgbyzYHOdO2sdxani2vr ggumIbDiRFGjQKt9ZSc9 HJFhrIdqZpZlTA40XPU4 LIPqguPoE5OtLJLv xVtkEwY6v9M7Oq8ZX9FJ DmzrG6JSMYHUXZpbfHD+ QQ44vh89J8JkTlekNdi2 MLOiWVX5bYV0sZ0v YUEdKQzur9W7iGG3Q8Ey moFvim9di3lsOGCoNVgi H58tzSOgm5A8VHXrsPD7 BQRcnBqaTsIzsS18 Oyc+JJIarVewa7LqBhnf y0pjl1rqiVh4FcbeOYYu umQhlXdcOIN8a9PuZt3o RHFejLF6fTN4rU9x SoIjWjZ1SJuwV720QgAz pCFmOktrB93zZ9PzgUV+ XQTqVne6OUTlfXmyYO2b E3NwEPXvpkgegOXp yViqWU8aUMRomwheKUSm uW2tHQNmG1k1UeCtSdT9 IYitQ2HpGGKfruubNp68 hI2bVrPvBmS5GWvh Z4KzlvL9IHZvjLNkKXrp VCW3W17wo9U8XYUvJVSb PAS6iOZ4lI7giYkeqtoq bGVmdDsgdmVydGlj AKauDPsyD779DUTuwPnk PkNvZGluZyBEYXRlOiAg MDYvMTIvMjAyNDwvdGQ+ NFBpNHP9sJbwYJMk tWEsXJnoZo5wfSshfEtf NY0zOQYpkefpGVKrnK3w SXMjbUUzpEraST8sMFLt trzyq507QtJtWPO2 LIAtkFGuR6CaqW0xXsVy UVHwJSPpQ5YvkSZaUQbd P945HOtbOtI3TYXjszFo U8InLBBduPqnKnG2 e1X2Nt3Zk2ZglnkwW0Qh nNObKpKcZaexWYd9K5Pe PjwvdHI+SS45LQFzIX59 GEg1HXJ2lPywBYfl DGZjA1RazO2nPsVeNKIi ZGRkOyc+PHRhYmxlIHdp ZHRoPScxMDAlJyBzdHls PF4yYm7oMSGqNQGi cKnvyAVfEcSpu8wjJJZd BSegYZ4mgUtuC6JvjHA6 JDIrh6h5Fw15G84lR1Ur dXA+OEPprST1uUJ1 kE8aHjBlZiX8DMqaQ728 MxXwaKJaWmbpq9lfl4bf zXw4ZsA2CBKfkgJdcQaw WCT7p7LzDo91U36c IHdpZHRoPSIxNSUiIHZh dKmjjr7otA8oUp4+PGNv iGA7yBM2kY0mGrVbIbK7 ISumO695UjJzuOSb Rciem6xoj7sghAj1QfRj IZMuqwRqjHpfTCC2j7Zh Ds70C8ZrmWowa5VhJsn5 ue79pNCwo4Z8gDZ5 D4PjVTAnxlvbsODgiEig TB7zSOVvxtmnICCobR5v SHXqN7l8FuUzMhC8RZtv A3KcvqZ2HIXkvTEt VRGpfWGSzK7uhffev2ra cneiXkRnKWIuSQx7RDm9 HNOcbOdgOlCmSNZ9RcX7 WJT2eYJpjK5ivTrx vywnfK1aWzm+UQA9oXGg vOHSPY0xObdngTT+PHRk YOR7mRzqVWjyYQYepC0w OBJkQ4s5CrRnDjK6 ZCmxO5QhhrO0AMBucRYa TCCvfMVWyE4kbekqz2oc ytpyDrZwBHPfVIi2ABx6 LWFsaWduOiBsZWZ0 EqQ6MUA1nZRadG4ieMtx ruwvlD4oBgn+QmlydGgg QAE3OTo2J6JyPdy8GPKr kBruGL3huIEoPKmd Fq6yaYxmwCsgBT5uANSb zzewt695ZhNdg5xdFJQq bRHjHDjhSXP7F74vo5U6 BXVtDOGxPSH3wSM6 jH0fqOjqulwjrVEqnAbm tnMsyTynSDarGLayH803 JXBztTlzWhRbGHr4D9Wp Znm1OYLpdYccHZ9h mNSuXGzbYx8qwEeonHpz UQ6lJIZmtqqpy572RjXh j3ayCXFwbOYkAZiiPSA9 D52th5M5AUFzRFWm CYG9oAW8iB7wgGgxihxo bGVmdDsgdmVydGljYWwt ASnzW960JPIxrQxtSqMv gUf3R1VaOtf0OWGf vDoxQG2vxKXjHWjaCh7c kHcgpPhuDT0bFQUfqlst e654CpPhe0yyWGIphSLm AFznBAW0W32rd1A5 SZRxHTKoTVR9rDA7hJ7x bGlnbjogbGVmdDsgdmVy aDvuYLmlNUagO386IZXx cDsnPlBhdGllbnQg UWjhGUd1J4RnGistrBY+ IT16UFAoTK64fBDmpBYt g6bdkPx1QxWnESAzUEY3 sPvbVTmxm2DvWYMx W15goAMos3C1ZPLkzPey nGEjRiThxVK8tY1eVQtw jwfzr9oejnmfEbgsl3vc wd96nQ72S52jUSui ZHRoPSIzMCUiIHZhbGln ez5zoU2fXg3+PGNvbCB3 kGX5yY4yYNFxEmC1UMgx S260KvHfkBMoSjmt x2zda5pswVy7ZyG2PJTa jjRhuDjkYSW4u3CcUa12 I16bQQduHHTtDZHpGXOc APPiaGyhuh2zqH9b Ii8+ETAjdHJ7tQN5kR5o SsCsKyD0YPujA038SbRb aWZyEajuP31yA9TegKM+ SDBsPkp4VKZnxRqj CJ3ebXWyLCvdXe0jYKR9 PmBvSeZrJGwfM7ZtAUZa kjaayiuxzLA6HZZcUFIo tQ21Um9nzOyyFSLb xVECzB8mbggxc8vkscla YhMkMJMzTFn6NRb8LNUu lGisHfMlEIM3HpH3VUC9 eWHchX5xqAommeco gC4yU9NxCQXmwdzaQr69 uB7mMpPkWeS4HPbmHgu+ D9MXIlehHK2AY0bHYAeh SzwvdGQ+PHRkIHN0 vOgpTEwhBBGhrD4yAAHk D4k9KgKrJyE3DUmnC9Ul UZSqbrezUa88mB8vGaTo EtO3VQbmE8ScjeV8 EUFbcXYbWGpxQAF6V76y r7Q1JNRaUQJoBBX3kTD4 lZ2gkEolcaxvkJHooKse dmVydGljYWwtYWxp P782EWUbwJncDcFdIrN3 WoA0InH7R9CyEax5QVGk wQzvFR1ccKZhYOvzCb5w cCccnUpjVS0lWIXw lymhGJYogW2vEGByoZXy eQteOB4aEQMekpivf815 RbKoKTX9KJGraJUmW7Bd qZ3fVuCtVYTkHGRi B8WopNOwRHbmZ765TMpq XcM2WQFspoJpA0AiHHLy cLwgOvR6n1I0Cg80TTMG ZWFyczwvdGQ+PHRk NZJ9jUoiPZagKDKilW3h IKGxO8m9BuWcKwE0BPwk A7AjMIGfgquqZn71tP7v JiOmDvW3IBnbA1Nz qlV4WGGpvZZfVNhmNZV9 Z32np0W9DUXjWDJzEYN9 wOJ8zC7gwGkbmmtinGCj dDsgdmVydGljYWwt XFjpU332DWDlkKghVr5C GLE0M0DlOie1WEDcrPpw FC5gfQGtJZqeJe8xzJmq sUdhRQ3gGRYcmtke ADEzfS2rOXLydLGapCed UD7xFQGepuphj625KdTo SQT3EIZfiIUmO1XhfT2e RpVfIHOjZPEfV5Tv zNQaFUnyA242EKceWyA9 ULRvenNiS4GaEQNdlYth DnJ9d3W9Rm6JVYflnOO+ DC09xc61U9IhXkmo Tkn4VPWeDCM0aRI3cG5f MJVfSRhur8F6sHS4D1Nh zvAmdn6dv9dkVVChZDpi A28ppFAhd9C1LLUb jCS0SVMmeEalJqBieI08 Oyc+BFUrjQduh9LyQhbu w5qjc2qzpOv4LaFmKDBz hoTygFdsQUF9p2Kj Vs66B22pXBtjDHSkCDOd ANGcAGXsbFsihn3iiE9e Ii8+TREdlTQ0lIJ7jS9d LrArSwQ2IVplE373 XfCxiGVeYzihn3ups0qi rWd8XmPvTGLamhStdEbd CEY0e0HjTq52J3YspHxs n9DhKql6fy82iGBz m9M9tDW4O2HnJSJvungz tQAepOmzYO0zLSLcndgl BNMmxM0nNFBxQ9t9McDe KnJ8SVqdR1MdvnH6 XBWcaMShHLLabSMGsY6j wnjvo7pdcetbApHiDPMz GRo6FHd3RZFajPhkHkXp ZVT1JfE0PGY8pOYj lF1foUkrwknvoR7iWao+ UMs6n5yvePFbFQ1fzSH2 OB29QF06uMDta0O8mNB5 J0BhCFNetwvkhxkv mFI9NFApFDEnnP08Tb9e mWicNw4hLCZrTND3ENNl fAAuD3GuqD6pMaHxHCWi SSQzO6UcaZExYGgv M259PNavCwG8XCFnziPj B8SuFZBypOdcSjK2l0D6 Ro3RST59AK14TM72bEFk t2F4vOJ8D8OaMDQb vhvxjtnvxML7QRPzFMLr qM02Rn9vrBeyZx4aSBTf ASF4SBCvyHLfO0BouN6k IgRqWIBaKQWbD3Ie jWHaUWayX131ZVqwOiY9 BRCahpUdZ9PbMDLnpVao FaW1w9R6Fy3YNb23AE77 ZS33uWVbg8L7zDJ2 W4XaGVJwxwtimaerqSM1 NHRoBXKkpY08Ig3chRdt He3wPJKsHIG1IWHxgOKh F0DcuF7oKgVcTETh UVSaF1SzzBRgQSvtV564 UAagRgE7EMBktyAaQ6Ub EPSavMfkYnF4j8B5Da9A JQpwgtk9G6WpKpvn dHI+JR53PZOjAB38jYPx eANzd2otnEu8PwIyXBDi TZB2lXykSCmux7IsGSSs P21guLQtr1T5XLJc bGx (more content not included)... [facility] Coding Summary HTMLBase 64 ShtldtwsAEw6sCp+PGhl YWQ+YI2ZUJXvW22znCHs fT2yM8QZUWbXRgydPTBX LRfUKlVlukAvNR8fwZBb ZXJu IC8+NG1eVMLiMyahhNPy l3E3eWW9G56sui1aGYyp vYU4OKRhNrAfyuttn0sk vYq5OFwsOkslCmAc YOWnjL59WDL1pR35Df91 aINfaLYwr9pbnIm7KgEd KAQtJSB7xFejTVjgz4Ak VOJbN84qmGXyb9R3 IGNvbGxhcHNlOyBlbXB0 aA6nLHattpmyb8plxcyn Wgo5an63fKQyn3M8dBF8 M7WmpnD5LUBrgMQq OintdDOIsW7zrzjfm1fa fkpwPvVcZCWaINp1WVs1 KYSogIieKiUpNI13WIM0 GBHmxlQtA0SqZHLe nIbwIxI8g8G2Ny8NL0AN YfsfJ1BAUMZIXEsxzUZ+ DG73yl00Y4LfFtabMvu2 LTTyKNV3gGP5hO1y TJPdYLmyr9M5qTH1J2Df ymMpgq5wb5dgEEWuAZop A48jkRSzh9E4AERyzTB2 MDQwgIyzQyKhiR22 Oyc+UQKslBjtj2JfQdfp t7mru3trhLp0VpykABKy ywUleDlwHRS2n2ItVa8j KZAwaBL5vGC1nT8z JrRpLtL6AJyeJ359XhUy iWEjTveqK01rS9SshBL+ ZQNjNxk4VFDwvYjkOL6e O1QpSTJyepfauIDc fErgZF3dFYZkpgqjSRSq qO7yBJKyA6m3FcWdMhL8 SXcrH3SuZEVtgdnlHh85 sJ7vYlTyMhF8EDfe O5UbpyR6YHAbcCJeGVxw BWJ3Z61rp4I4QAUzJNHw QVN0mTL3qC1lwKyttahj bGVmdDsgdmVydGlj OWqzPXmdD535ARRdwBbb PkNvZGluZyBEYXRlOiAg MDYvMTIvMjAyNDwvdGQ+ JUYeOWD5xVgyEHBx hJLsYWfqBz7ogEpilInh XX8nSGTebexpEZJjqO5h ODHiqUPqxBkkPR4cBUZy bamsf427MmOoTBI8 LBNyqLAxY7SpeC8lGkZh NGXrIJLeK1FjqCFcMLnz H757GBtvUsJ2QRMhnfBe K1RsLYQmmXvvZdA9 k0D5Wl9Ne3XibweoE4Zk wJHkUcMmRvopGMd0I3Hd PjwvdHI+RS77TAMxCN69 WIm3XPP3sUuqGLlg AURdC7EkuH9mUyZgWVEr ZGRkOyc+PHRhYmxlIHdp ZHRoPScxMDAlJyBzdHls LB7sHn9fMNAkEXNy lByzpZZzHzDwu3fbQJKa FBlhDS0uvRysT4CkrGK6 RNGyt2t6Zx94D66rG1Xq dXA+FWSrlNC3mQD8 uR9pLwAhFdB7VLxgH918 KaHobJBcHimbd4quh0lh uZh2CwL5HRYylbEusWui YNN6e4DfAt03W18w IHdpZHRoPSIxNSUiIHZh qIqtqs3nxV6yYn6+PGNv bQH6bLY7dY2yTqRpIsV9 TYupZ127VfOctAEx Auxsp5mkm7vakKg1TxMj PVGsonOafFoqGBO8s5Qo Cj93Q4LjgUzoc4JoJle0 qc50nMUze6A4dOV2 O1DqUBXafvgszLRhjVxx QD7oYINjevfaZUMvuA6c AUOzH9b1KgRhXrS5HRre X8XxwcK6VCAraUPm WINtnCOIrK8bykmvt5ie tdexOnUpRKCvKYz0TRf4 DQXucVdxYoGxMNP7FuT8 LGN5qUQinB3wkObw lvjagF3qNkn+IPG5mUAb gDSVWY3dDcjrhWA+PHRk UVY3vEdgUNhuIIXozD2y XHNyR1c6RsArTcV1 DBavS3VwplN2JDXrrTRs LKOvgBEIlD5nmyvcv0yi gfioLeVvAGDeWTp3YHt4 LWFsaWduOiBsZWZ0 DpI3HKY6kPRfqW2isYef jsscvS1gPdm+QmlydGgg GRP2TXd2D2YyVzx7FCPi uEvyYZ8mzGOrISrd Ea0spPfdkYvtRG2tFWDz lexsc815AhVkf5zuWLDy uIOgPUocZNL4H30ae2W5 QKBcANGjASW6jOA7 jE7feTqcqwajqSMysPgq viQvwEjoZUseHJdeY530 IUMvbXoyZwOgCUj0I3Gy Ggj4LQOagHwrST8a xORjCHaiPe5bnPkcyVxw YB0eMOUzadmag353NaZx d3wtJQXbkZTjNOekDRE7 L61zj9V7ENVcPQEv XQA6vMY6aB4ojHscgnub bGVmdDsgdmVydGljYWwt ZPykF742DWUfqToyWjOe bMw0M9TpOin6HHPc sCgxVT7oySDuVUqsOt3d nIzhoTswEB0bBJOdwmsy x956JnXup6hxAKZdfLTc WIuvZZE5F90kq5W2 BZVnCWVhUZD4fPY4zL9q bGlnbjogbGVmdDsgdmVy jUtgGXziLTrmF881DDRh cDsnPlBhdGllbnQg IChzYFo8X9CiQxaqoFO+ JT17NMXzNA52qRVyyZIx a5ydmRq3CbTzIVHsBEQ5 eGmcSJsyn1QxFVXv I40xkLEui9E2CZGzvDhv tDZgMrLrlAT7fJ6sCTxc xacva2tlnbrnXowal7nu lm60dN61K68wEVhj ZHRoPSIzMCUiIHZhbGln um7ckP1aAs7+PGNvbCB3 pAM8kP8kDLCmWkB9TDnl C098KySvaOBxOhdh r5uld8mtiPf8XfR8DNJx bmUsmBmhDEK0s1CfGg78 W21hOBjwBWQtFVWsSLKi XLPqnOmckm5dlJ8s Ii8+CEWihMH3tDZ6jC9p AkQnApL6GPezT283ArHf xVJwFxviN61qW3KvmOR+ QHTnZnk4QTXmrPzv OB2rrGRzTWszLi6rONU8 AfUiWzRvWPjlG6IvGRYc jwfdfqvpzYF5JIBiQPZl tT53Ug7ygKenFUBi tXEVoI1kqilfz4pdfjmp BaKsFRZpRVr3WQo2OMCo cAjpAhQoGVC2LaY7BQL6 mPDiwM3biVytuwcz kP5fI2WnXUMlzqqxTi76 xT2dSdGcUjC6JDajVrs+ H8MFDqxeKW6HF8uXVRss SzwvdGQ+PHRkIHN0 wRxgCWzuCOAzkS2wDLWz T5q3RdPpCjN6EPkdO7Ct AGXxkqznOi12xD8nLhZh LaJ4GZihP3YpnrM4 ATMpjCIwALmvZNZ3B59k g2B8GRBlFFTgMCX8hYR6 yL4vbBebdabodBLaqJhn dmVydGljYWwtYWxp U852YGVfzOxkOdYnQsP0 SzZ3TwJ7P1ZmJwg6HULp vIvwZU5asEAiOOzmHf8j yPsqeTiaEH5gYQUt qlegZHJubN5lQZRjoIOx oFhnBU0dAGUavvtyf782 ScOpTPT9ILCxtJHhE6Fx jA2uDdAzZLEiPIDr C4WutIOoEIxhP334WQha FpD4IFShsjZjC9CjOPXq mCqkRoE4p0T3Hl46CDYM ZWFyczwvdGQ+PHRk DJV6bDskZSpyTQIjxY0n TVEoE9h0HkHsUaL4GRom Z1UpRRVkkjrpRf43jI5q SmNgQtZ3ZThwL5Ap ufY2ERYlcKAqYLdhKJU6 P34ng5W2OQRyTEJiJFD9 fJU4wK6zuPbpttpduQBy dDsgdmVydGljYWwt IOfrM213AOJfyVokWx7L KKO9N7LlLqk5RXVsqYhy OF8qtKXlZMnjEh8hdEec nUwwMN2qORHaewpj XBPmaG6iWGAmbLFamTeg XP0oAKImpwsad754SfGb YXD8TFDxrWOaW1ZoiE9e PrUwASStWEOaG7St tKViWCjkV781QIjqSsI0 INDhwrVcW0PfAEPxgUqg AzE4j2R7Ck8QJFkplNY+ JE40gj93G9VsRxjg Dhs1PJWkEMW1fHH6xE2o ZPGsDZzhm1A7yYG3S8Uo vjTkko9jn1coVPYzNKwx K75wuJNlz2U2OTCr fXO1QXLthZncBuYjjH65 Oyc+XLGksWojr9MiEipd z3qvn2narFl1SrLaUIYb ohGttHfhPFE2h8Mg Zp72N70cBOrsDTGrPBIl VFOfGJGsyZarsq1sjL3j Ii8+UMRjtVP8rZR2wK6k AfQvKgK5RItzN408 YuIpeLUeCqqva3uan0pu kCm9LdKjEBZowlEdsObw WPW0l5XmSw90M6PpkSio x2YzOor5co30rCCo o2L0uLT1F8FkYDXkzvtn fRQkuIgbMC4pKXCcjoxl PWRyjM8dOIGaU0y7ZyGm HiW3IGuoW4EumqG5 BPJwwAOkMRPuzFJBwJ7o lbdud3dwcpakRnVzJEMo NOk5GJa8AIPotQrrMlGv PBG0IkK9THC8bLEu aK2oxCsztuxgnW5vCpn+ OUy6m9czuNYuTY9rcEJ7 YB90SS57rACik7M0jNU7 M3IaIDXpuwlxpyhz dFV1NFSyOFZinX88Fi2u rBkqZc2tEVLqUBZ0EYDb zMRqP4QugC9fPrPeTQJg JMXqU0PaxGDnCXnx C636UHktVnW9CRNnoyQg H8UdFSZrrWtjZtS4c9K9 Jd3AEX64BI37EF20oFQi o6A4pTF0W5WoSGCz rovcodbwlQD6LITyDETd pK04Tr8qjDtvYs4nHIDg OZR9WGArkUPjA4ShmY9q AaHnXIMnFELvZ2Om bQFaTLadW930EMulXbE6 WZPgqbJvL2XqDBJuyIwh FjX1f2Q8Oq7AHc67LJ38 AW81dNOgg2O4uLC9 N3VdIMLnbmkeeswxrSD2 OFHhHOEtsS13Iy8yqEfk Lw1eSODgKRC9LXFpoTMc T0EqyZ6xIxJwZGCx ZGEhH5JjtSCvDKgtS381 ILaoSoI2HNLrrxBoU2Bq PQCaeBarHaR4s4Y1Cy6A COzwqhz5O5JqHcya dHI+VK76ENEtQP98wIAy pDYyv1lbjKq5JvWsBJGg KTS9tYusSQyps1ErASOg W67yoOVwy6L8CPGj bGx (more content not included)... [facility] Wound Care Noteon 10-14-2023 Wound Care Note [phone] [id number] #[email or web address] [facility] Coding Summaryon 10-09-2023 Coding Summary HTMLBase 64 QzardpkiDVb7dEr+PGhl YWQ+RA4UPNMkU03wiRVr wJ7qL7UGXTwPHedwYOVW OEcEBuKljzBqEU9ygTCl ZXJu IC8+ON7lMATbRqkoqSDx z7F2oKB8A24elj0zEKlk sRS9BQQrDlQcowwbi6hz nGf4EIveIopsLaFl BECpqM21AIG1lL94Kv56 tSWntDPzi3ghlDm1EpQj KGJuQYE7bKpwAXcdx3Qb XJKrF33etGVnn0V4 IGNvbGxhcHNlOyBlbXB0 dA2tPRdfimyot7mydxpy Uzt2ie43eJVuh8Z6dJU6 T3RfhxM1LMBvwLDk HukixKSPqV6ssruae3ee hprbShUtCXNcQRy7ABi0 DNNqiFuhQmImAL25DIA7 TANklhJlH5EmGWNj pCugFxD9r4R2Es0LK4AM MktbZ4ICTMDFDKqgdNK+ YS80go55Z5VePvkgYyg8 VQXrOKT8yJK8aU1y QEDwKOkvx6P3yIB7N1Wa itCump7ju6wkNJTgKJjd A24wkSGgb0K7JKWprDY4 UGJbsDfkYsLunT48 Oyc+UMInbMikd7CeYljx d1mai6sbkKu3BzirDVEj efOdiFnrGND2x2VaOp2e OCOjfEF3aCO3cL5x VrCbYzZ2WCzjM776LqVw eFCqXzatM34hE3UduBT+ LMRdHay6PCYdlOrcLR1f R4XhLCBbcvjilKFq gXoaFK3pJFSisdwpBKDb cR3oCKIiE6h3ZyJiLeH7 ERgmW1IxDNKdeifhSt74 bD7yGkZaNjR9QTeh S0MnwcV7LFQgzJQtTGdo UTZ8H25yg8T2WJMkWGZb OQZ9tUD4zX0ntDqwffsm bGVmdDsgdmVydGlj EVjeSNmhS826YDDhvOlc PkNvZGluZyBEYXRlOiAg MDYvMDUvMjAyNDwvdGQ+ OKNpFSR7uGheTPIs rIWmPAqqMv7zzLiblJeb ZH7gPWOmmzapYRJndA3w JBTnrENjqPvcWL7fFLMu mrpwv813KuFqQJY7 FAEjpYFcD4BjuD9kXfYo HIQfPLIfL8TujVVeKQfm Q599PHsfVbB4GNIbguGv U6XmRCItkVwpKyP3 o1Q1Yy0Th5YphoiiN2Zp wUVqPbUeDppmFEe2S3Ju PjwvdHI+PL08CYKnZB36 INa6XUL7xNzrINdc JJQyQ2LhfI4oIoTnRWAv ZGRkOyc+PHRhYmxlIHdp ZHRoPScxMDAlJyBzdHls JK2dAu8lKKBfNJRz mFncnURsOeJmn9aiENQm OKgeIJ3gvHwoN8CduJQ9 OLGvh5x6Uw27A65tF2Jd dXA+NQWpxKN2rJD7 bM5sZcIjXcS9VHxeB388 UoWrpGEcNzxgx4gqu3og iFb3YvM7WAFnudXbqIqw MLX4a5CuTy67P05g IHdpZHRoPSIxNSUiIHZh zZennh3kbB4pDx0+PGNv fDP5nYW5dJ9fGaSiRtH9 SPphL181LdKrzRLz Yvupd3xso0sghQk0MjTo VVCfprDdwTiwTVI8k7Yp Kc03T8HjaUnac1XxDur4 hj85fNYxz6I8lIS6 J6BvWFXxscxrxFGiyIth UV8bJJPmckccMKVlyD4o VTWbA8k2IlChGrD7TMmi U2RsalT2XQWmvCXp XZYrsVHQlA4rdidxa2ho mcqnEjQqLPHiNGp6MBz6 SRFkfTybRwUlEJP7SxT4 LVN3rOKxhC4lnClc pjfzpZ6yVtq+ENK0uHDk bMCAPT1hPmmlzNO+PHRk TJZ1yVgeKZmaQFOmqY8h ASOlL9k6TkVyXvL6 QUabM4VvoiJ3KUElmGDo OVHjiIFHuG1fjvdys3tn xmpwLrOkAZQaJNt9NAn0 LWFsaWduOiBsZWZ0 HqN5GMH6dNBkdP3deLza qkbhmQ3uWyk+QmlydGgg RFG7USp6T5TyRje0HOHj gPqdVT7sdRXwJCbo Xt8kyGockYeoIF6kSNBi vodgd042OlFfs2igLTRl fVPeXXrbBNN8A98vf6U9 INJnFDHaSPU5rRU0 nX7rgBvcmlfasQUjzUqs mwYnrNfgXDwyNHwzA018 VXDpfOwdZcLdZHb1F8Dj Nwy0FKWhdSruDE0e vTBqMNffMb9tlVirkGyk ET0vWWVwirend147XeUw b7sbFXVjvTGkIZqpAWU6 S16nw0I3RDYoKJIf UOP6oVB2sG8usBimkuvh bGVmdDsgdmVydGljYWwt AZlqR816JLSujDqtMbVg zVp4L6GfCoo6KQXh hHbyKN6vlHKyHUpxGr6v gPohjFkuPV2lNKIenmpb m433VcCoa2fzUPWzkFMn VNcbQJA3L73iu0J7 OMNlBUUpHWB3wJI7pW4c bGlnbjogbGVmdDsgdmVy eCdjHXbqJSomS429OVJt cDsnPlBhdGllbnQg CDehIKx6S4PxZxywbXK+ HX14OONiRA69fQUqgACw i1yvaPi8RdPfLUShTSR5 dQxcPKaou7EsUDKq U27noUZsl6U4UGGasLlp oPCbKgMarEZ2mM6pBGus lgcnb2oixgjkTokas8pe up98jY09A59uDAuo ZHRoPSIzMCUiIHZhbGln ln0cpN8xMr8+PGNvbCB3 qVP0aM1kLANuPsL5DEld G394VoKelEAfCgnb c0nej1lioSo8EmL0EQZv bvPxiJagTMH2u3NiPg20 A20sNYwzYOHwNTCuNXDl JOSbbVbtfb1dcR1y Ii8+DBRqeUQ0vXQ6jD7x UpFcAzN6SLqzN245ItZu qXIeCocgN64bA0PdaDD+ GZKnOnl1SUOrnFkp WQ9maEIzRTazEt9bWCS9 LhZoMyCqVCkxW9BaDQHn khssrxtgrGR0IHVoDAVu oK59Vs5bfAvyEGKw xLRLmN6nzvbjp6ppxuah OkAgLSRgLWm9JJb2VHXx pVwiQfBcTUF7UeQ0ISG5 eGWrsY0cjMidzvbn eE0eF4FuDVNcgairTj08 hL0yPnJqFjP0LMxrGkk+ Y3JSZbepAA2IW4sPGGpa SzwvdGQ+PHRkIHN0 mAytHSjvTPLkiM8jBWKz I2g3TdZkJyW9KNvrU3It CEAsynmnJb12fH9yWlYy XxA7DKghM6QmmwS8 UBCerWRkFPmeZWT8M02h x4E7YIIvLVXxMHJ0mJT0 mH8xbQvksczowEEsaDvt dmVydGljYWwtYWxp M376MWHqnQubUlNtRmB5 OhS3IgX6M8AsEld1HZYg zPidDD0jmMTsIOwuMq5n sUxazAcvBN1mXRJn dbqsUJHttO2vOFHpjIVy uVjeZY7eMHYegxjjl231 MaApJBO0QSVgnCLlO4Os fT1tOoOoJRHnYTGl Z7JacMXoXVyrA916ALby PwE5SBXaftFaF2LyQXJc nDadMmH2v9V3Gs82IVAY ZWFyczwvdGQ+PHRk LSG5lMlgOYojALMboH5h KTEnQ5c1FkKgLbF4EGvh T9DtBXRljytxUs63xA7j FsYcWdS9WRafG5Xl hfC0CGPonQSrIKslTKU0 Y54if7Y6IAEqKAKuDKN5 dYO6tN1gjDgetybcyVSf dDsgdmVydGljYWwt GQgxR618SQQxeZysJx7V JNI6G2MtGlh4CSDxcGtn QJ3xhGQaXGujMo3vcEav eLwfTR1jVLRvlear EDXtnZ7gOMVukKAacHkf JY6zEVHtiamtj055PmTa HBQ6OSYipCTkH7EsxJ4g BnDxZFVrVGChJ5Um oOLvDOroU703HUdxFqG8 LMDacrJgS3CiBKHfdFgl IjT3l8H0Va7QGTgrmKT+ PN23vc84N4EaYlyw Zjr6CKPnOCD0gPG4sJ4x ZBKnOPqyw9D1gQE8X8Uf vyUwms4qi6ddJQHwOYfc O72rsYAay1G2WWCa jAV3CSLutOxxXsCulH39 Oyc+CAWgcXzwz4SoIimq h1xlw6yqiAn8MyJxTHIw eyQnaQjwWVJ3j3Da Hm28O03aYAzpCCEvDDMu SNTxNKGczTlmxd4ouA4s Ii8+VBQvrYN6tVO6nY8v IhWaMbQ5LVeuN135 DdYkuSTdGjxei5lzz9ci wZf4TtOrDSKaouOkdXzq NKF2o8JlMa69L4IguZtt k1DaDac3cw25qXYs a0Z1iKW1I8UiPIAmcidr tVAqdPvgGC8iRPWaqhlj XUInqW2kSKCiL3k8DfGp RbA9RUlxF1SsddD3 KQOpiCUjOTVdwHIOmK8a kisro8ndieojNkPsOKFe QVb3FYa5XQTngHyeIhLz GUS8KyF7AAC1gLLa rQ4wxMjysgibwX2sMuc+ TZr1f9dgbOAtJX0uqIE0 IK27RR02dMCii5L7gJZ8 W6BxBOQyccttvmsp bCX6EDUhVUKlzF08Dl8c iSrjUr1rULLjRNJ5SQHm vBWiH8JkwA8aPeYlPENl VKPsB5NepHMaHDni T193VCxvWvI3VZUmieIz C3MrXHTolMobZoD6t7L0 Oi9VGS83EM94EO20wIXs k2H0kZS7X1DgFAKg vvqqbelfoQV3MPXtBHTa xG51Vw4pgKgyOp7tRQKd BMC6WAVphTLoL7RetR1q HeYkLGZdEMKeE0Lc gIPvULtiL354UBezGhY1 QNDesfPrW5NsKIBjbDql SyA2a0A0Dd6QSe50PT55 EM63jPGzg8D2jQM9 I2IpMEKukkguokfsfGP9 PGWbGRSimT32Ug3tlTey Al3bYCGbGXR9JJJvtOVm H5RwzQ4dEwGbACSn WRMjT2SdpBOdZApdZ575 HCupXaN1OQCcysTuF2Ll DLThlHtnMlX7g0O8Xt8A ABepfrz9T3HsCvhi dHI+CC27UNHnCE17nGPi vXRvl9iohGl2NdRsVEZv QBK8zPegESkgu4JyVGVa K11ysZFvp7M5RHQl bGx (more content not included)... [facility] Coding Summary HTMLBase 64 MmydmasoZZl0wMb+PGhl YWQ+NM5WYBBaE99qjRCe nZ0bW2GAJIuSZuouFYJQ CReIHrRihtXeIP9yuKOi ZXJu IC8+WF2zSCAiRlfkvGOr a0K3uOG7V12ruh4rNPag dBV4TYAaTyGgifnnn2pq xFv2HSizAzoqUsDq TQKagG80AOP5uT79Ko32 xKUocEKbv6owlUl7WaEg YQGqNFG2nQdtQSzft1Fb LWVsO46pbJAzq6C6 IGNvbGxhcHNlOyBlbXB0 aY5nCIjdzwcqx2nalpbq Goy1li31bUBhn9P3cDA0 H9ArdcU0ATWhxDPt FwwlkUCNkK1ccfnpk1io gleoQpPbBIGdEGj0QIl8 QOIopHgjAmDgLP92YZT3 ECKcqyVqA0GwKJXx xItoKgG0m3B9Jb5UH2WC WkljY7RBLDIUYDcpeRM+ QR12uv61R0IkPwqhSxc4 JFIvTIN6fWK9eY1v ROQyNSceq8B3wSN9C5Di uwNgrs9kd9fhYYHdWVhc Q84noGYlk8P6TAOewQL4 VMAvkDgjUpIqzD73 Oyc+YQNcfWwos7TbKxcu p1pcs2ayvXm1EoiuJWOu ymPjkUpqOWH0f3FxKe9u FIXmlMB2eZH2eR7s EuTeByQ5AIdnQ958FuWq dTKkTaxmW03eT0QdmBV+ FHMyLsn7LWJahNsiHL9o E7KyJOBamwhzmYGf iQxzWT4eNIJxabonAAMl eV4oGJEcT4f9FzQmRgF4 RMnoO2VgFXBvdkagIu26 iB2gEgWuArM3LOrl D5MlsfY5GLSkzVZnKYkp BCD1U80gl0W7GSSqMYMp CNR3bMV7hN5ptTqmqwfx bGVmdDsgdmVydGlj KFdbGZudX245QMUciGrg PkNvZGluZyBEYXRlOiAg MDYvMDUvMjAyNDwvdGQ+ BASaWKR3cXvgNKLr zWZeANxfBv8oeWrliIto VX3qBJFodchmJGOvrH4e XUHpjQJdlNusGR9qZDSq smtot870RaWoUVK5 EYVfyFUkJ9UynS9pKxOw PPSfVJEzZ9QxbDTbWKrf J684VAzgOlA7FDKvfmBg G0PpAZGokXscHsY2 c2J5Ua2Og2LeturtC0Nc xJIyMrLoAztbYMz3W9Uo PjwvdHI+ML44TNCrZP62 AYx4PUI4fBikIJnq EKJpL3YkxV0xNaGtAXAy ZGRkOyc+PHRhYmxlIHdp ZHRoPScxMDAlJyBzdHls MK4sGd2wFJMkEHEi kOpjhZQwPfMhs5mhYHTj UQcrSA3njXvhH5OxrKN1 TMWfz5n6Rz15N03xJ9Is dXA+RQUdaIT0rEZ9 zX2fThRxZyF1HMdcM910 AyRulHZiZwpoc7omr6oy lCz5DgR9OJYjbmNutRcq HVP9l4CcYf15C68s IHdpZHRoPSIxNSUiIHZh hKkiju5fyP4kTx9+PGNv nDY4sNL9mH5vCuSvHeD1 SWdsX342ImTutAJj Fvtca2ean0qroAx9MrYt MQGtqrPooFcrTYI7e3Xg Qt92I1RkyBtpo8HlHok3 yv33kKBfh6K8vAK4 Q0OoAITszmtxtATfeWcr LH2iUYNfzxuxOONxiE8d JAUqY0l3TgKaIzO3JZty P8AwgaP4KVWsjRHn KMUirBRXdM7sgafqs9kq knuwUfYvJNNjIAy8DOy0 FNGzxYwhMoFcPAD6HxR3 MAX4jIHkhV5izHij pppcqS3oWrq+VEV8wHUy hXHRRH1kCwcuyJD+PHRk FSE7oIthKDdkYJJwnT5y JJZwG8r8KhJcLsC2 VAasW2AkrrG4YCPvmMZc ZJAirJZUjX2xqnifl7dn uebjZyScAYAjZZd7WRq9 LWFsaWduOiBsZWZ0 LzA4MLW6vQWkyR0bzBqv pjypoO3nIwa+QmlydGgg RAK1STh1L3RbYrx9DLDh wMwvTX1rxWAlHNle Dd8ylOtfvWagRV4uXSAo jkxuv312SdAaw7klVDOd jPXgZQedFUJ7J26kl2K4 BQJvSOMiDLA7yBO7 wH8jaThtzimhiADqpYyd brFccCibIOahJBoaT496 FMDthXmlOiOaOEy8L3On Dab8RERewIspIU5x wCIzQGmhPt9fwKbvfIee AA2gWVExuouhh568UwJa r1dzAWZfcDHoONztGDW2 M27cf5D7LFWoBAKd XUL2qEV4kI6rkPiowkww bGVmdDsgdmVydGljYWwt BBcdU543NBRqgZlpGvOm lKa9J4BmEim5GVBt xHruJD8toEBbEDlrGi4w uXydaUvsEO4hTJNmuqjd h068BmZif8afYFTvlTQr CQliSTX9P67hr9X4 EYMlELTdRMQ5cKZ3kS7v bGlnbjogbGVmdDsgdmVy gUznWNzaAHwhQ909JNJn cDsnPlBhdGllbnQg APrzRZj4Y1TsEdzokSN+ PH91IBJfLW81mFEaeSXj l9sapZm2GuKdWSGvLYS4 nHuyKXpxj5RfVNXj K26zqUBem3Z6BCZqcRpk zKKlMyWywSN8wQ9rTWmj fsguh4fhzpsjCuvje2mw oh48yJ90F55dVDaf ZHRoPSIzMCUiIHZhbGln tb1dlI8pVu9+PGNvbCB3 tXL1yB1pRHZpHzS9RChw T232YyHpwKKrVptd y0pig3elxFx4YnC0KUKh ypCdzHqxCHR8j4QsKl67 S97cNJgiOCIrIOHsYNDe KPIpyBzyhl1qkU5o Ii8+FNRopWY0bVK0xV3a OtCkInJ6SDqkK837LtBt wFEgHwpsV78jX2KtbMT+ AKViQmv5CDWugBly JG8jrOUbODarBf1tRXY6 IqNqEzPxLYxcL5EmHMAo msycmapphXC6IJJzHHXd aN52Rc5bvQwvPRIo iLNRyV0gcvibp8xpczjd DnGpEPQpCZn4ORv4VFYz kDjpWgWiHVV1SdY6FPW7 hGCfjB5ryXzkaitr xS3lO9AcBDIsjrmhDd75 qK3jTbMvNxY0YVybRee+ R4MDSfruVL6PG4hLIIpo SzwvdGQ+PHRkIHN0 zCtvBVroABOgzG2vBXLg Z1b2PgXeWiX6KTlaX7Yw UDDsnkzsFo78jV8oMrNa QpS8IQsjF5MxpfA3 YGVvcZZrVVhlNKO0J13n p2T2QRHxVOAlLTL6tJJ6 uW9ymJenhkgkcYAdgHnb dmVydGljYWwtYWxp B449PKUpoCduBiGaZtE0 BnI0YgA0R8XaDoi4TOLr eNwqZY7igORsWNmbJr2g iTvfuAgmDU8eLXWk vktpAHXdoL5kGREdwMUx iCryUH3lGLOsfnjhw750 NmOyFZE1NHJtqMXwM8Kf gT2gAhEdNMSvQHMh C5YlvGEfOTvyQ146AUaj XiC0YUMdodDdR5JnZUCh pBufDsF0y4F3Hh31WLWG ZWFyczwvdGQ+PHRk BVO2dXpmWJzqMYSkmF2f GKFmT2a1HiAoYfO3WZkd U0HpBAXkvjwcUc97kM2m ZsGlRqO7TThvF0Xv rnP5YCLizYRvFQpfTOD6 F09rg0Y6JUMrPVWhZSE4 wLU1lO5wiIlyroyvfSIo dDsgdmVydGljYWwt DPxpE797JKNzbUqfAe6U BNC3W6YuOsh6XRZthXoy NH5ldNNyBPpsMr4qbNmx mWhhMR4hPMQptdho TYHhnO3mFCQiqQBjlWtw GN9qMCEgpmffl238ArTp WRG4LVHumPSjQ7XmoY7f XmFkIMWoJEDgM5Dl nOEkKFxxF682CYzfKbO1 JVFsyvMcJ0NnYNMynAwz MjT8t3E4Yp4RJGjqhVM+ MP92ds64Z1DwVrjy Cro7JRDrUMM7rWG0fQ2l KKRlERfuq5E9vLK7E5Ao vvMnoa2vk9ntBTLwCUhp N12qzNDau0J9ZWNn wSV7NDWozRgoZkSslT92 Oyc+BQAjjObll5AcPqav u7uer7uehCa9HdFsKPTk pzJwsPafNVV2k2Ox Lu09Q22mMIamMOWxGYOv BADwFEMheFexme0rgR8e Ii8+DAQsfOY0wOZ2qJ3q WhUfStO7RLbtB120 FyHlwJZzEffkh1phg3jx nCf9QeYuZMBlmcNfwTto YUF8r2JkSu06K9JieSxi n7AdQia8fr76oVXi u8W6dCX9E7SnXKJxnrwq hMRbmZzmDX4uQPGnoztl WNKnyW1bRNYeW0l6OiHv IlQ5YUdvO7WicbA0 PWWicCZsLDCsmCKLqC0n uewte6khlylqJhCnMGBz TPq8IJd8UOYxhNcyFeRw CKD4CrA4DOQ0uNTu gL7ffVsaiuzkwJ8nZxq+ NAm3r2pulNBoVY7xqTB7 XP76TK20eWOzg9I7fAQ8 W5CzLBVrkhmvzunt hGM6ZPOuBAZucF45Jr1y vEupFf1rGGZnLQZ0MQBl fOCrK9QmcI0xMhSlDQRg GKWtO6KwlBSoJWca O231EGddQkG4ANRhhlAj W6LyZEKhnMfdIcC0s6F6 Ul8QPY61UB94MH68nARh b7S8uBU3Y6ClGECf snauklgtwXB1RLIvCXFr aQ17Cn2doTpmZp9iPCBc XLH5KXZrqVCjG6WkxU1c IrZsSIYsIWRvH3Su mARnZAdvD526WQvyQxQ4 UNWvcaHrY8SmLUMjuTbz NkY0z0F8Wt4JVi27VR06 VG42lWFim6X0dUI1 U1VvKYDtvwiokinspRL3 GXQaSKErpH55Us7guRmh Qj4dGYFqLDX5YYOyxWRx G5IzhK4mQaJjRYEf ZTTsY5XeqRRyRWpgQ143 BYzoOeY6UTUbbjVdX0Qz DKExmOvkLiK0k6R6Sz5X WKxsnfq0G6JgSkep dHI+WK63KCNvYX54hJXs tHCmi3vfdGa8TrZxJSYg AYZ0oWheOEthj0BtSNIm Y84ueVBuj5I4ZTSw bGx (more content not included)... [facility] Wound Care Noteon 10-01-2023 Wound Care Note [id number] [id number] [facility] Ambulatory Patient Summaryon 09-25-2023 Ambulatory Patient Summary [address], [address] - Visit Summary For YRN RICARDO Age: 63 years Sex: MALE : 1960 Address: [address] [place] [address] [address] [facility] [place], [place], [facility] Home: Work: -- Primary Care Provider: LESLY MELCHOR MD Race: White Ethnicity: Not or Language: [place] Health Plan: 1?[facility]ICARE [facility], 2?MEDICAID [facility], 3?MEDICAID [facility] Reason for Visit: Three month follow up for med refills Prescription Information: If you have been given a prescription for narcotics, seek immediate medical attention if you have any difficulty breathing or any sudden status changes such as confusion and sleepiness. If you or anyone you know is experiencing suicidal thoughts, mental health, alcohol and/or drug addiction problems; contact the [facility] 26/11 Crisis Hotline -Text 4HKFG zz [phone]. Follow-Up Information With: Address: When: KAREN ZAPATA, LESLY To [facility] [address] [place] [address]/[address] [place] [address] In 3 months With: Address: When: LESLY MELCHOR MD [facility] [address] [place] [address]/[address] [place] [address] In 3 months Future Appointments [facility] Appt. Date: 12/24/2023 2:15 PM Scheduled Provider: Lesly Melchor MD [address] [place] [address] [place], [address] Future Orders No future orders Additional Goals [...] 3 m2 Body Mass Index: 47.2 kg/m2 [place] Body Weight Calculated: 84.047 kg BSA Measured: [...] for 5 week(s), 0 refills authorized Instructions: [facility] Flovent HFA 110 mcg/inh inhalation aerosol (fluticasone) [...] tab(s)(650 Milligram) (more content not included)... Normal [facility] Patient Handouton 09-25-2023 Patient Handout Orthopedics Osteoarthritis [...] walking or exercising. ? An inability to revenue cycle administrator items, twist your hand(s), or control the [...] aerobics, that increase your heart rate. ? Jkyec-uw-gusczf activities. These help your joints move more [...] above the (more content not included)... Normal [facility] Coding Summaryon 09-20-2023 Coding Summary HTMLBase 64 JnhiacccPAx3gIx+PGhl YWQ+CT1BYXXrZ75ojXHq mC9dR1AXQRqWKgnhPYGY EKcFEzOfeyAxSO7xlNFx ZXJu IC8+SW6wDNQsLrjhcKKv s6A0vSM2P03kqd5uBXri cXD3CLJhAeTyvsfvi9cr hHp7DQmsEstiXaWc PHWfdC53YEO7lX26Xk48 zHOxjPGkj3raxSr9YsIt JHOtZKB2qXrhXGwcs8Ta HOEhN98lpNMld3M9 IGNvbGxhcHNlOyBlbXB0 iY9nRFyprckbs5vqusgl Ozf8jq10qYZhh9L4iCS1 T6JddhK7HBBohLEt WceimVXFdH5pbootu2ss pbniAbFvGCXfBKh1VUy1 RSJpgIhoZgPjSO75TJW8 URIrgoCfA4DoHJNy zDspZtS5y7Z6Mj7PV6BO NyouR4TUBJXNAUjqcBS+ QV17ou62B2ZoEljxCzn1 WDEfWTX0eXD1zO2r PMUmJWmkv6S5iGF2N8Ot jvJepy5rb3lhIQCbCUxy Q76jsZIyi9G9PJJkaLN9 WJDtcFzgWtDvpV03 Oyc+XRZxbEfcv9QaVncv s7ncn0ipsXh4DmcxEEHs ldEtmAplKZS8h5VfNr9w ISVscYQ9pIO9hN3z KjVcGlH5VBszL644NsNk dJZgUrwnY19zX7KacIW+ GXGrRct3ROMnrZtjSW7w D0IcVTMsaclyyOPo sTbhJG7aFMXttdkzTSYg eX2sBYPuZ7c8HbIyKmM3 GGfxY9RlWAUjkaisBj63 gR4ePyBrRxA3QUaa Q9AfeiL4MYRujXWfPXty LAX0S60vb8N7QFAiVMIr KGT3jEV3rR2tmGbyglob bGVmdDsgdmVydGlj OHgfYTwlZ082AYLicKmm PkNvZGluZyBEYXRlOiAg MDUvMTcvMjAyNDwvdGQ+ ZTTkWKL7wMyiRLUn jAQkZZrnSg4yrSvwtRif PM7aPZUaiiorZLSdeO6n WEVroNFpcUtrQC7lFVZi iajwy125JxIvGUE6 UWTlyLCvQ0BwdQ5wKxCe MJZrVXJwB5RvhCVrAUwj G905DVduSvI7AHLnbzOs O8KsNNZwhAzuYoA7 i3U8Jy0Pf6OotiqaJ4Jo qXYoDvErJqqtLNg7K5Zb PjwvdHI+HA65YYWiEE73 UJn6OVX8yIcuLMep VKFcG6PvtD1jPbQhNZVe ZGRkOyc+PHRhYmxlIHdp ZHRoPScxMDAlJyBzdHls FK6mNv4pGOWgTEWv cHpsrBEcSvKie3etZBGq SDopEW0wfYbxA9FlvYX1 VUCvr9h7Dd41S79hS2Pi dXA+EYAaxYX8dHE8 aX3qSuFxLgY9TOhmS580 YpVcoZUwHohqh4onv3ay cBx1WdM9KMSmklUqtCyb ICS2o3FpQp73X44z IHdpZHRoPSIxNSUiIHZh zYjfpa4clF9vIl8+PGNv wSL5zPN7cJ3lMfWhHzT2 UMyoD431KtReeSDs Dujvm2vvp7dvpHs6AcZa HFLfiqZyzQojLCY1d3Ok Ql16N7QacBxfa0AdTph5 qp29fRGns5N1cAQ0 R4TqEMEsiompbSKwnLmg HJ6sAWQsnkfdBFMlvO8q WPLmQ7i5UaIjEsE7XUlv Z9UfasW2KEPwzTVv NXInmCXHaG9eymmnw1ew tjfqKkPaTAFyVHz2DTv1 LQUncFdaBgKdRZH0VvC1 TXN7aJCjaN8hbUew srjmcA8qUcb+SKP7mBSf oOFEKJ5cTrsjtAF+PHRk IFO8wYjpTEdcYJKdfP3o MFIeF9j8NsZhUzM8 SEteO4TtipS7DCDflTTy DQQymHIVcA3beingb4lt rlgeIqJyMXNwZHn7GCo7 LWFsaWduOiBsZWZ0 OaA8IZA7dCJuoO2njYyk zzyaxJ5tNkh+QmlydGgg JGE0BFr7U4QxHut7THEz cXliUR5ijJUfIYny Qw2rtQwhzYfwFC2lHYJj luhsd746OiWoh0myKFZi kUOyVPciLUF3K60rz8L7 XAKaPHVeRCT7oWV9 xL4tkXwmovzvzEUujJjx osSeaErcDJkfXUsnF175 LBOupUomNtVmZCo6Y5Fh Mto8DVYcsKdkAS0x xUOaUKcrLi1vmCjsjPbg VX3nKFShbycpr517RpOt x3ykFQYqbHEwKBatFHN9 O69xl5C8XZOpIIYb NUL1nYH9pB6pqDgcdpsz bGVmdDsgdmVydGljYWwt JQmyL592DPRaeBhlWyOd tZp7C9OmOih4ISBg cHxjWG1jcXMuBLlxZe6g rEhpxEznXU0oZQIcmlqn u882RyJry3cxDCHsoVYe HOgcQSB2U74gm4E0 FHRfDZUaUPI3wNI5gS1c bGlnbjogbGVmdDsgdmVy cZznKTfwHEbdO794IADy cDsnPlBhdGllbnQg PLdbCRm9R7EnEuqulWE+ TG53SLGsCH57fCRmlQQx a6fnrBe6GxSzRVPsLDS8 wQlbWQjdd1NcWPEx N83ywWWvu3C4SUHnnDnc gJUsWuTjhDJ3jX8aICpd yvqvl9fndbfyCddes0bd tc51sU07R63hVYfd ZHRoPSIzMCUiIHZhbGln xz7uqB6bEs1+PGNvbCB3 sMH2hH3eXTOrGlU8GAxq V082FzNoqRFqKkia l3lwv1zysPk1SzK5SYOj pkRilOfzLGD4u9NdPi87 W52zTYrgRWVyCOXlSCIj MHYsmYjoow3ugN9y Ii8+EKVeoHY6bIX0kB6r ChJuZvC8KBkpC684DaPd cLQkIkulB47kO1RilNM+ CONrFlm0ZGOgdKls TD0qaGQpOVbqRd0oZSV7 HhVaOgGnQJvaU3VqTQTo sokumkpouFB4BWAfSTNl wM38Yc8tyLweAPQs gQGWvB0dbnbnp0kecjdh VmDcATDeDYx9GFr9IAZc wEizXbIkCTO1OpS7FLD5 xVFojY1yaSggodqa gP0tD1RuIWJffptpSa41 wJ5fRfJcVmJ2WNjdJgy+ S2VMMojuIN6TC8fOUPzm SzwvdGQ+PHRkIHN0 xTbfVOylJKWdaW8vCNHa R2d9XlScXkL5ZGepD1Rs GWFsifhsPk23iU7eQnDe PoP4FQmmX5AvszF6 SMHtmRKhBGylZZK6Y13m t7R2TYXyGDRfQUY8cGD7 dV8doZuxybdfwGRmqEzd dmVydGljYWwtYWxp Z673EAAhfCujNsBhAjU3 DsY9MwU9W8MvSuo5MFTf aWirDN7vlTXfYJyzJq5h mPbotAtrBD3dLQRo tlvlFDJpjO9uUYJlwNKa bSslKP6gNKTnjsmue143 PxObPUU1OXMxlNCiS2Kc qG1lElMqHDIaXXTq D7RrzVIbOCjoZ379CGun EhA3VNZzymScY8UzISXz lGvvHcD9m2V6Kv61RBHL ZWFyczwvdGQ+PHRk JRN2dYjxLPmqEMEwpK9j UIXjN4s8FbIbGhL7OFjb A9UhRSQikmjeTl16bG2e QlQzLhQ5WLcxP8Zu lyZ9WAOplITvTOyrBSS5 X16vo0T3AZXpUEJuPRS6 qFP2oD8cuLbdgqdrxFTc dDsgdmVydGljYWwt EAnoS395TIFmeRrpOx7P KSB5U1GeQpv3GPOvtUap BF5xjOVvECfwZf1ufZoy jUkjME5sJVNexckz SVVudY7vMJClySAhoSha IS2oPPZurrwcj875LdVa ZIB6JWOwbCJdG9AgiY5i VuGjFUAyZHNoE4Nv jHCeEPueM326IUowGqI0 IJJwiuXpK6MrJGEdzOvy XjL3y6M1Ox7WSKkueYZ+ EP90hc05R2MyBnvq Hmg7QUFcOTD5mCO7lG6r XYUcLOzpb9X4zPW6N9Xx mdDptk1wu9tkEQXmYXox J85eaEAlt5C5RZHg oPZ8BWCsaZxuEzBhxA69 Oyc+EHYfeLvuw5UnBcru p2tdg6upuHg3MgNbVFCs gqIomQkuXYK5t0Po Jf28W52rZBtdPIJfMDAx BMPeKFRvrVpwjf3jzN9w Ii8+FCPwhCA4lTA2sF4p QqMfTvL7OQjdU678 ZsOtaGYeIbphf1bfr8fz nAc7RqRpLSPpbeJnpTdc RBR6c4PcFi10N0NyjIkv i2WeHcb9dq00oOJb o7X0uAH1L5KpSTDpjfes kRJrbSltGU9qHQWnzrse ETIzcI1zRKOfF8k7ZnXb WaV1GYmoQ2IwyeQ3 XSYqqNIvOGZvhYTVdX3s ffdcy6vcwwehMsNpKRZe IRl0CMk0KCOuvVxrQqSn FQB6DqR6QYO6bKSc iR3tfBhvflcdnV0nBvq+ ZNf8z2knoGYzTS2adRZ5 MS99OV32vOJvg0Z1lAZ2 R5NfMKLlrazfuwwa tCJ5NWWhCQFrwR11Ri9l cWmbBg0iUPQbGEO4LIXd kKEqO4VecX1mOkXdEZNu EQPdZ1YliXVdCNdl F470WIvkHgC2XHFjlwPj H6TwBBJrwYskSyI4i5G3 Ub7DDL78TA35ZG92sVFu k9L6cFR6H0DeAYPr caoltgyqbAA5NZYjYUSd bX21Ar6neFshOq2yYJMg NYZ1JHPnkVFdK4JduE2e IvQiAOKdXWCjW9Da lRTgJRkoC226PSqgXxB8 QTTdsvKwU8UvKBCafSax MmZ3e1C4Ge5TIw70JM78 JP65mCQus3V7xHT7 J5MdLFAoxohbngmjqXT6 NFEzJTAfvI71De8crFxs Qn5rCVCbYXI5AIHvaHZz R6ImmA6gCwOpFYAo QYByN4HfiRXhUQijS477 OHxhDlR5UWYjczHgN6Um JUMfiXvyRjL1s7T2Yf4B VStrtzh4D0MnIomk dHI+SW07YVQtGF04iOOv cNIgt1ytbRv3SeTpWCVs KUA8hFanSJtkl9TzUTFn F31txLFkk8C3LGKx bGx (more content not included)... [facility] Coding Summary HTMLBase 64 QyvsqaciEAz0vUz+PGhl YWQ+VT9EHDEnD36tyCZl dU4jW8VCEIrEWswtFMTK NRpEUwHgaoZwQK2rnNHm ZXJu IC8+SX0sFXQjOdypmXZb l5A4gIX3Z05kht8nIOpy iLI8OIWdPeZzpmkxd1wg qHl9LRtpIfemWxHh KZPhlO00CWT9jZ69Ov72 pOEqsMUfg0yveZm4SaZh RBPhWVR8bXllGNiqf1Nc ZHIuJ41cfRJwa4O0 IGNvbGxhcHNlOyBlbXB0 oP8wIZvounjku5aqdsuy Dlj6fe17bGXlm4O8dJB3 H2ZzzcN9GGUzpGOl BgkmuIQOnD1aftwds2xp dfbzUtZzZTXlVQk7FEo2 JOVvkJgyXxVfXP81LRR5 MRIyubXmN1ZeXRYb fAkaEaP1j5V3Qk3VU5IC RujmM5RSYLSUMSxpnOD+ BC56uj53M4QyMsygUlh2 QWFxWAE4hJC2kF8j ZNQfBUgmw8K9wXL3R9Ar meGaqy3gm6geGMAqVOvs Q44atIJqw6M2XIPzgKU9 WQCncFnbAeGzcL07 Oyc+UIDzuPqcq4ZlIpst l1tus9stpEx0JeuhXBIq qnWtoUglEVX9a9YqEc3z BLUhoDL2dBV5iC8r BePsTvL9JWaoU856DfFz oERzCbpgW55dR9PhxRI+ DTDbRin1QWMdiZomKZ4t J4WbJZPwbiuopJEl qAhnSK9dEACqsiikZIDh uQ2yGWXnH5p4FjNvMmU0 IXmgK2DrSYTriucmQm92 hI1zUxCoSsT2CPkt U3UdvhZ2GHGuySEhXSxw LOG0M37ry1U4TXFeDMAz JFX9kRW2mT0kcMzxhprw bGVmdDsgdmVydGlj JXfhWEviW857ZBIfuHdo PkNvZGluZyBEYXRlOiAg MDUvMTcvMjAyNDwvdGQ+ IAPfOHH1nHzqRJAq jEXlRBksEe1lbJcavKfm SL6zPTPdpyhvAUZmoR3k BRJlsRTofIfdXF6bNWLk flvlu269NzAxVTK8 KXBbmHBxE3XahL9vXnYz UJRjGJBvI3QuiPXzTSax D329XFxcMvL7WVJtkrDe S5SoLZYaoQisCcP3 j3L9Kg0Fw8FeaxjcB2Wo lJHdChMeXtpfHAn5A1Db PjwvdHI+ZB59KWMrGZ06 HSs3IKC0xQraQFao LZAsY8RuoJ0vTsOgDCUa ZGRkOyc+PHRhYmxlIHdp ZHRoPScxMDAlJyBzdHls ZZ4hGr9yDQDxQZAn yNmcfTPmYxRzi9enLXKg BVebCJ9vmAomG0YxkGB4 DODst8b4Il69E38lK5Tj dXA+ZQJwyQX0tBA2 lT8hJnTqBvW8TZvjV084 MwVnjWLyGelmq2tjn0fe aXe9KeY9CWXeofPzxJpk KJU4g8UsSj70T21p IHdpZHRoPSIxNSUiIHZh lNdcpr5jnI3xUb5+PGNv xRW8rDH3zP1cFgCpLeU2 OOgzA029HcVutANs Llybq1suf4pfoZm4KwAy MGHzvwTvjFkaNEE6p7Xj En51K9DheOiau7PjWfi5 ng81nAPfx5E5dZK1 I3YuFINwbkkowYSnmDcg TD5qITQsekibNWEpdK3t BNUpS8s6FpBtUqN5ZVjw G1ClpgZ4XZQghZEo HJFjpCJLmL1asrvtg2ka ixzmSxXkOZMzVDn0MVe2 YVGxjSitSqBrSHN8TyE9 RXQ4rSGtdF7ouArg cbidrA8cPkq+QHG7yFCl jLHVRD8sXfwzpZY+PHRk IXN4eBweWZrzJLUsqW2j KYGsB3k7YyYfQjE9 VSdtO0IcebZ5ZYLjhTGn KUIcjORVvQ7qwicyt3uu ojfjZbZeFNPdXPj4LCl2 LWFsaWduOiBsZWZ0 WqQ1TGI6pTJceV9eiYxb jrsqaZ2nSnp+QmlydGgg VQO0WPs8S6MuBeh4BJBr pNykLR3ocUOxVJlr Lv9orCcrzIqsTJ7cKOGm xebmj811ZpGyj6eoZKQf vKGuUExxNTD1D08of9S1 LFTgUTJsHEC1pUI4 wV0kkEmwupnjwFCdwNpl ksSnpBsxCGceYAcjU244 WFRfrHntJhFeCOu1M3Dr Ufh1DXHcbXodDH1w kCGyHKbnMf3osKbqwQvw AW9hDKZqburle387OjUk q8xkVLDxhKSuKHhzBWC9 Z09rs2X7DUQwNFVl SQT6hVU0gJ0hqGhtxyrj bGVmdDsgdmVydGljYWwt HJuoR134KUUcbHwgUmJn tKv4M7WwZlw1BEOr uQtiZA6qkSEiZNzaDs3w oMnqpAlzTR7kQBOpsuub k974UyEmp1kmJDNyzDEy SXgnJHU5Y58ms7X9 TZPeSDRlIPD1zLD8wL8k bGlnbjogbGVmdDsgdmVy tSlzOLuzLAsbP026IVEu cDsnPlBhdGllbnQg DXxkGXw9O2ToGwecyQL+ MV00JREpGX72rFKfhEGc o1khfBu6RvChXYSrWQL4 jUgyPWcii9UoQUBa I78jvBIcd5C1OOHfqAjy wAMmWeWjcYZ2qD3eGJdf dfmby2cyxinhAtnak0cr ww79mE85Z59gTYzj ZHRoPSIzMCUiIHZhbGln wb7ziW6uHb8+PGNvbCB3 uYH1uR6sQZFtUoJ4EScc N050AiUhqLLbJhpr q4yxn7ucvUu0QpM3FURk gxFoiDdqRSI5w2StDz33 E19nPSiuWBUmSUYkTUBq UAJbdAuwmn8hoQ5h Ii8+GMCrlII7zBD8qI2n KxVvSlL4AYhfD717VaRi dTCqQykhP28mG6YpcWU+ UFSrMqz1WYLnmBxf IM7ngRRmYQjxQv5dJGV7 KvDzVgBfXCfaB0QaCWRh lydkjtszvRJ1FZQyMGIr sI38Hq3txMgcAFMg mKJXxJ1lvrbop9jyfsiu UyWkVWSvWJf8QNf0AXUm eEpeVcAwRRB0WoU8JOD1 bACzvP6ylSroqrlx bT4yM1RxBUCcjneqQk60 qX6gMlLeHyM4RXtsMii+ D0XCBvqrMZ9WS0xJWQvd SzwvdGQ+PHRkIHN0 pCexHAcoXOYgpA2hAANr S9v0HtUpKbR4AQvmH7Xm ADNpanjvCv91gB6nFpJl WrU9TKeiZ2JnijK5 TCOjgTOcGNscLAN6O71d j0G8RFKtYINvKNP7hYI8 cP8ikTyjzzklvQVucOrj dmVydGljYWwtYWxp V058HRJmcQymWpOpXfS5 EoJ8PoP2D5QxFhl1ETPo nUvyJV6mxHKsJJqoEr1z hRinxKugJY0aZBRx cimhYEPwvQ3mMOQurPKf jCcfDT0rXKZgnzfqr861 HcErMHO9LKFpkAVnR4Rd jI0kPrQyJFKnDZOh R5KwyDJuOXczO476IBoj BzJ4YYVlmqUyB5CuQFDu lSogIsI8b9C0Ss62ZXKN ZWFyczwvdGQ+PHRk QWC4fKzpXJhtEVPdfL6a GTUcW4a5PpFoKbS9UWgt M7KdXZVkmucsSe25oJ6r YpXyDuJ4RBquR3Uw bdY1SUZfjBZmUCmhTUS8 I86yi9U8SSYbMSJuXRQ0 tSD8cY7efCcjyrkdsQFg dDsgdmVydGljYWwt DYovX067CXTvgXhaMb7T GNM0S7FaRww4LGOelLqy PZ2rzSPiFJewEn9rpYjv rRkdJA4nITKvyksj MDHotH3tHMOoaBOqhVhu II7tRHFclauyu165XtGn VRR3CZVnxATvA7GwsI2r VuKxKFLuKJZjN6Xx bYYmAGplF889WShyRnR0 QBJrqxUdY2LuPJEmgQaq CyQ6q8E9Sp8BJXaxxZM+ EF27zn32F7MiHfen Dxx0BTQuBFK8qVO9vA9l BFNkFBzwm0J2aQL4X9Sq szSatq5xj8lcWSGzQGhy Q71ctHDlw7T1RZKs qSB4XAWfqJhkYeXzoA61 Oyc+TTBqoUhus4WlFhgn x5enc3ubkPj3CyBeZNUg zzNqvIlyDWC3k7Zz Hh77N56wAUgcVDRcOZNy NEYkMTGzwEzflh1auX3t Ii8+IAIqeIP2bZS4nH1g XxMdKpJ1LFdkD028 OzRrfALzBzprd3umv6jd qIf5BmZqDIZfptVfkLmd MLU8q2FaJx25F1AugNri a6CvByg4mi20lWGx c9V0mJW6R4FtQMTlilnd tUQkaQxzGR0iGMVjviux BXSgfZ5oQHOpE5z7XqCx UcC3XDnsU8PqkxQ3 OPYquAHiQKDnhQZCcY2u axgew0iylduzUuVfJIEl IOw0FMu8LXUmuSnqEmGm LVH9NfT7FSQ5uSAv uX2edNjfumddzO3nIam+ WIx2e9alpKAvNI3glBK5 LK35QS78vFVzk5V2jQB7 J0NrMOEcaixncomr sTP7XKGmNRLqyN81Nq6i qZkfXj7yQXOqVXR0HFAe pGDfW8DgwZ0ySuGbVRNg NHGsO5ZzdOOeFDcq L800CAjkVfD9YUIyjbBg H7PyQGGywFmhJwB7s2C6 Sd5CAX46PY18QX64qOHa z3B3fKB8J8XuKJAm bcyoojpqcWW4SPJiGFYx uR29Qd4esYbrDj8vPHLr GZW2YSRapZIxI1TqcB1d NgEwIQWvVOOnX5Pt kEDbYNfhJ824YBznDzM1 GDCmdtBsA1SgPZCpwOmq LrJ3d3V3Py5DDv79WN38 PG43cJGuj7R4oMT2 D4BaIMPptlrfusnpjMO0 UHGmGTEjtP79Wh6jqUgs Fq3fTLNeJVZ4AAEiqANl U5CawL2uShYpYIGq ZNJkN3VnpKAcPBpiH959 VQjbSiW8EXSwwbGvZ8Sj ZYBtyKfbOdC8n7E2Ts1B ZOlcfmp9H5NzDuxy dHI+LT06YJJjMF07iRUc jATnr8ygeUd0UiVbIFOa VPB9jThcGMtww2NhRMFr Q72dbTXlg1O4JBHu bGx (more content not included)... [facility] Coding Summary HTMLBase 64 NdtjpqsnYDf9vWn+PGhl YWQ+QK1UYNZmX63zqLMy nK5vB8WNBOkAMqfdEONE TBhMTdPjeePiYH1euZGp ZXJu IC8+GD4wTXHbMtlimUKg v5R2bHX8U95rkt8wADlg fMS6TSKoCtKervrxh8ct hTa1CZqeLcrtIoIc VWYgaH64WUD4cT97Kz40 eXJytYSup6jhrFo6IjIj QMCjOAF2bJoqEPkab0Cg BKDrJ44lrSWnh8V8 IGNvbGxhcHNlOyBlbXB0 bR5qKHzfeiiky4khruio Wbn1qv29bUOsd8L0aCP9 P9VvyiA7KDQkfNCh AxjfkCSTlZ8zzgxbr0zt trywQyRuZGEjXDs0KLq1 KZWroIbePbFqDB15OGZ1 LHSajiJzF6LdUXRp fFojYgY5c9G4Pj4XD9XP KgqiV2FTDFQBBUpsoSM+ VH40tf23D1CsOthhXcg4 DLRhRJX5yBO7dE2f BOHqLGgry3G7dIP7D1Yz knPmbv4kw4vnSWWaCAgj I63fkCGnu5N9FBDikAH0 PUYcyZieTtZymG96 Oyc+OLSryHczp7DlLshw i2kmj8pjqEy7OfqcMIFr eyTuwDxlLUL5o4ZrIt0y UKYrxLT4aOT8rX8n EoJkYlL2VWmgX980XpIz yLMuEerlP86zN7HfkJK+ MJRzJrh2VFSkgYymWB8q O4CkZBEnbxmssVLw cCuaED0oQEEdvjkkAJXc tP2oFTHqZ1u9KdYkCuU0 BBpjU0KkIGPlyrlfHl93 uD1wJeSxFqK2SWec C7PadyB1ABJfaMEbXWgz MXS7O45jw2A9UXGlSNYj GAK8cIS2nC7lrKxaxrui bGVmdDsgdmVydGlj HTkuFUmgM489HKLmaZju PkNvZGluZyBEYXRlOiAg MDUvMTcvMjAyNDwvdGQ+ LOIiAHB0xMjbEGGy jXNpYZxvZf8hqJgehXci YR8cETAhmepxENJydR9y BLGdhEIhzIyjDI8fZLWz siebt249LwCiMFN2 VTKkkUErQ8TcvC1vQgDq ZOEcXKXnM0ZvgLViDBtd T290DWdyZcB8CIZikjNs B6EmLWVnrTlxSgC1 s8H7Ve6Up8OvcvmeC0Ah yCHfCsKqXrddAKe2P4Iw PjwvdHI+QA96LPEmUW15 NEw5HPH3pJazYYqe ZKItB8HfnK6oWrLeOGOy ZGRkOyc+PHRhYmxlIHdp ZHRoPScxMDAlJyBzdHls IY2vHx1vUWQuLBBm oMieeKEaVmGls8jvDHSw ZOrhLH9erDthI9VrdOU6 MYNes2t0Tw02X22yQ9Gr dXA+QKMvqEP4fXS2 iA7uCmOlVeM8ZBrcY232 VpGfgRRgPuhmo9pmq7lr uLr9UoS5VZTcbjXpyCka ZSY9c0EgAc71T79t IHdpZHRoPSIxNSUiIHZh yWsicu8htF4lWb9+PGNv fHE2dSJ1sH6gPxLbIdS9 MTylD496ZeXuvWLg Eqrjd8ang6iflRg0SgGm FCGldxEhcQnzJDG3u6Dz Tv91T2ZqcFghs5PnPel6 el09fEPkk0Q9vIG6 S5DiDIWgkojsnSSlcHrx CJ2zSVCtevukNABeaU9i APLwH8r1BwNaLpT1GMch C2JxjmL3RDUzePBx HPRatPFCoW7pmfjuu2ja crnyOrGiQBWgBOm8HTh5 DKMbqPmmPaQlGRZ5BfE4 RFY2uANvmD8tePhu vkgpuY8kHrn+KDF2jIAt dEPTMI3eYsrqvUC+PHRk RYF3qHncAXbrVCFriH5f SXRqP4j1RnYlFgX3 GZwpU6CrqfU8YPKnlVWs QTCakXXNaC8vqaugq0dy dhfgXvXnBNOvFIl8RMc5 LWFsaWduOiBsZWZ0 IhT3XVQ3rZQkyA9tdToe tykxkE8mIew+QmlydGgg KYH2SVp6W6ClUcf6OFHv rIboHS1frMAeYVqi Nc9rxXhceUtbVP1oHHFp aqxqr302TfJaj2wqYEWl pXLpUVvvMNW7H96ru9I3 INYjHWPyKJM4nFG9 sY0leNmxkulxoHDnhLdi mqHwzAdxQYvaAKvfF917 TDZskSkdOnEgMZs4X6Ek Mwc4BPCgjSzjZW6e dZDtUYgcEi4znAvyyGxz XX5hSWMxnwpvd463UiRo m4ctGUSksDAeUExeQQX1 M71hl6N2NKGrFNCd VDZ9qZG7lP2fnJdyzgku bGVmdDsgdmVydGljYWwt QWzwX386SBIelIimCkWc fUh9J0FmDmv0ZNQo rKapUO5bvUJaAVueUt0r lUxbbHlfHA1hYWYveang z263RxLqz5mmKZOzmJNv HIjzPTA7X92rz4H9 WICxVZVxRPI1sFI4xU2s bGlnbjogbGVmdDsgdmVy aDdcCPltFZwxI236VTVb cDsnPlBhdGllbnQg RKeuPSl1N9ChKhkjgFM+ HK39VFJnTP65uIUozVKj q3yytSa6ZdWxECYmXQR7 qGerAFzuf3VmALDv N23zaLLcj6F1CIUvlDrr yDQpBhLukKI9pL0qOUuu aqrrc5wknuymBohfz8nc ro06vM27O74oENbh ZHRoPSIzMCUiIHZhbGln oq5euT6sId2+PGNvbCB3 mYX5wE9cHQStLuV5MBom R921BlCzgHZgSjom v1xlb5vekGz0CyF9AQEg qyXqlXlxULK1w8CkNg08 H05bAAolDESuIZUnQITm TNBkvJrref1sxD1s Ii8+QPXxjKK5oXI1wW4v XlSgUhF1BGjzD953QeNa jBCvTkpkI94xK1DuvZE+ BPXcOzh9KAAajUvr HT3uvJUzFQiuEw3cQCB5 LdSjQsUcEQvaU8UpOOLs wmwhahrzqNF1CYIyWTGq mM66Lp4alHusTZUy iFYDbG6npembw0nrqazm SmAyPWEgARi9OQb5NPLb hJlhVsXjKQZ6VrA9YDD5 bTTzhD0nlNxgggin xI3tN3NjTOWtgnowZs36 nR9sPdRxYuF8QXjeHtq+ Q6BFSoftMS9PI8lHXPai SzwvdGQ+PHRkIHN0 lIhiKNaqZQRvaL2xBXQy E0w0ByHqZuH5KHdoK1Gx GHKzsgplCs50sL5iFjLz QjK0OXthA7UkuxR7 VDBsbMDzQHqjTNM1D73o f1I1TNWcSMNqZAM9hHT6 lB3joValtthzqRIkzEjj dmVydGljYWwtYWxp E037YTSvcOpnCfRjVdI0 XkB9VnO4I3HlVyf6JTXp xYjpEN1lnRTmWDhjLn0l bUyetWtmEJ2xWHKc cyajWKZjrU5lREJksWEn nVsxWF7lXZWurvuhx789 CoOkWMV8YWOonHNwI1Xp eX9xSoSaXTZkWBTc A7FaqVOyLLamQ978EWic JlK7ZKGpmdTvO7VcQBWp pIhdHdQ0p7X6Bp44XCES ZWFyczwvdGQ+PHRk JFP1bZijTGcrSOUfyJ4i SHBzT8a7MnDqAtV7LYcc K0ZmMEPodvmaIe44kO8c LvTdEbQ0CVknN2Vk anM3ZEZtdDGyIUzuQNG3 H14cs1C9HUVzXADoKSO1 iXY7pA7jsEkmzeemsMHa dDsgdmVydGljYWwt DVjpH185JHDilEjwBy8L ZUB0O4IxRdn9BECqbGip EV5nuSFkSWheOe6esNqq mQheWF6iFCQiztoj MOKunF1vYJYdrIYhfEcn FE3sMIFvytpqx344UhVf JFB7GEJhqXEkL8OphF9d KkHaPOHeEJAlD7To qKBaWVkbS577BZkoUbD6 CHKrfaZsV5SsFMPloGni XfV2p8K7Yz0TEQasnWH+ EZ26lo62N5EtPfqs Cas6WTUeGYG2dSX6sE4z DNMoEVigy7O5jCA4G2Yq fjQgzv5em9bxAIMiCZfw M92kwZRnh0J6BZWk dSU3NRMrkNcpJfIamU53 Oyc+TSPavPake1MbYgku u1yba9tcnDd3XgRuALFb wmWefZkqDGE3p3Dq Xx78H74hCSiaWBDqEKOe CFOkNXRwmWmjlz0muT2j Ii8+PBEdxNU9lPX0vT0r GnLiBpI3ERvgJ991 LwMpzAWcEtlrm5abd2fm rEb0DaWrVUOkwpHsyCyt GYB1k2KaTl24Y0MjsNnz g8TrJzc7xb72eDMe l0W5iNU2J0BpVYUnjzva aTDrfVteGF8dXLEasgod HFFczY3jNXCnL4d4OaEk HoK4FFpjE9InfvR4 HWQbrLJaHZSjlZEApS3j yhgly9lhikymKkEmXBXs STm0PBe8NQFifPgwDhVw EQV0PuD4YUH0fYOl mP3gxPkysmcfkX4vIfm+ XYp8x3laxQNfJN8uyHR1 HX20IP86zVIjl4E9xOM5 E5KfCELhciwawhhu aZF4QQLiZWJrqV25Fc0z dBpyUd3iQZOaTAV7WZNp tVWuR3IufR3oDqEyIWHa WCMeN7JzjJKpVPhg X885EPpmRoF6SAHyljDe U8NkSHMhnYpyUrS6q4O3 Sn8EBJ56LZ31CH81sFMg o5U0zQF8V8YcYKCb ciuondcyaUX1NHKdHIXy oK26Nx4wyYykKo0cDAIu SMV5XCSidRCcY7OigB2c ZpUnJMAyKWBjO0Py yWScHSfnN810LUhlYxY8 KULjpvUrV5KzTRXpnNng EeA2t6E8Nb9PKb07GE25 NI16bYRrw3B0nPB0 F2VvIPWnxapohibzbHU9 HJJhHKIvtT06Pt5bcAxi Ry7bXCSrGRE6CYUuaXCr J6VqeP4wAjGyKJUw GMYoL9HusCDyEZvgB616 ZTftEcZ0DTDnluMcD0Uk ONStfUnbLoM7l5N7Aj6B WHwzxbu2S0QlSnqu dHI+DK41PKZkZA92vTCj xQMvl0kcvTo6HrNeGTYk VKO9yCsvNVqxc8DpOWMh B96cfNLxv2Z0JKJa bGx (more content not included)... [facility] Wound Care Noteon 09-16-2023 Wound Care Note [id number][facility] Records [id number] [facility] [id number] [id number] [facility]23 Wound Care Note [id number]#1 .00[facility] Coding Summaryon 09-07-2023 Coding Summary HTMLBase 64 UlverezmZQy0dKh+PGhl YWQ+NU4TJACtA59dnKCt lX2xL0KRQSpOLhpjKFHV MShGViJsoeNxLL2pkTCr ZXJu IC8+WX4yHNIgHtwgqZFm e7K8nHJ8Y75vss3tWRbp dCV7TLHkIeGbonqct0ld qBb9JAnhBdcmLzJb GLLbkS70HWW8hW81Wa27 rJHyePBbb4fboSh6NqNm GUHeVCD0aYqtALelb7Jl USYzQ02gtCEyi4K5 IGNvbGxhcHNlOyBlbXB0 gD1wGAxvvktji6zznyph Kgn8sr67tNSep9R5pBA5 K1WiqdY1UDHuqDFt InpcuKQQgX4hdshbb5nh okmgVrLrCWCeCGh6WPl8 ZOTcpMwsJlLvYY78YRN5 GDJieyWfD8TrHDKj jJtmLnK8p1T5Up9OL9UK JaafJ4NGYZOMGNivdUN+ FM51tu53H6RvOvdmXtc1 EFNjGGO3rBQ6vH8s XNXzBMipe0F4wDU1P4Be mlPoqb7jz3zsAMJkQGxe I50dePPkp9F8OUWljQT9 MDCvqOmuKaQhkO66 Oyc+JNMvkNyme0NlPnbi s8fek1htpBy5JnlsHCDv pnAenApiJBA6o7WpQe6g BUOogAP1xFS1wL0w TgAxSxM0QIqsV632BuYo hIRpFarbT38xL2FkhKB+ JMFxRpi2SRPppWanLN8q X2HxCILbgnnqiTUd gKyjFQ1cCULfuqhvRQFj wJ3dESAcK4c1HyJbEoX8 IYqkO9DwYZBunxubZu51 cD0gElBbZfS8MEcz L6MegvZ0THJhpTOnXZvy OOW2S32ro3B1KOSmUTQi MPY4tUN1dV1xuUdpudpp bGVmdDsgdmVydGlj AQhtJGzqZ303IFBaiQiy PkNvZGluZyBEYXRlOiAg MDUvMDQvMjAyNDwvdGQ+ GKSiWSN3nRfwVXFk hNOxBNawCm2llNfkfXok UU3pCRAgukmlMZApsO4z ENOxeRBtdMhmER5tPEDe jlvyf123VgHmVKK5 RGDzoZMdJ1GxyK9bKmOl DPShGKOmM3TauPUlYIuh M103DUdkMaK6ILKbiqCz N8VfSSRfaMrpOvI1 p3T3Dl8Me6BtsbszJ2Gu kMBvDyGaLcytCWa2R4Vs PjwvdHI+TK83HPJiPI62 IIj8FAR1hJdsIVmz DBXtT6LinO5hLcTtHDHn ZGRkOyc+PHRhYmxlIHdp ZHRoPScxMDAlJyBzdHls WC5eMz4nJYPsHQRs sPhhjAOcWxOjd4pnTXCb RHlhKL1abXgpX2XafKB5 HXUzt2s8Os18I46gF7Fy dXA+NYFmcCU6nEI7 eB8jJpOyBhC0ALcmZ839 KzLjdXKmUteqa0elb8gy xKh7LoE5ANWaviNafKol BLP2w4GpIp41D98c IHdpZHRoPSIxNSUiIHZh rJsosn1zpR4kGx4+PGNv yPP7tSB7yV5zIjStFsR7 CHhhN286GcBqnGFs Ngufx3gck6yhtUb2DeFn BDOcfyLhwHniYRD9l4Ff Qk12C4PigTfso3RhWyx5 vy73wCNrs5K6lPE9 T7JuMBFqgdhfmTPmbWuh YY5vQBMbldnaMTBbeZ5w QDCtG3s4DqKcIyX6PGzj M9AiusJ2WMRiqIAy IFGvwRYFlM5plznrz3kx yqcfGwZmMFZzNWn4EYp0 ZKKyvJfoInJvQTG9EtD4 CDI5wYGaeF1qsDnx vobxuB7cXsi+EWS1lTPi pUUPLY5qAlcuxUM+PHRk AYB1oGemHOauWJFdkA2d KMEgW5a1QoHaOfT2 JIztM1QrduE4BHWleKPr TLLlaKSEcH1todwxb9ta hwdeXjAnDHUgRPn2ETw1 LWFsaWduOiBsZWZ0 XyY5KWM3gAQdnC1ceKxc ukxviJ5hJmx+QmlydGgg GKX2PMo7Y6HtNvd6JTOx xDevBY3lfVRuNLcz Df7lePasuYpnZE5jQHKb miuci365NhRoz0iaZCOz kAIxTOvbYHH7S00he0G0 GRNoECOhAWZ3iWZ9 tE8xbSwstpjsxXFlaNif rqWesIrzPFujFCfuE035 YFPdaUfeElSbCHt6S5Tf Odg1YCIxtCfsHE1e wJHxWCtiXg6loWvdhYat KU7wIZFljztxa757MkOi f6ldDLMbiPUnESnsRVG3 H75ld0A0LXQrYUMo NWE2bFY1lX8qeAbgchjl bGVmdDsgdmVydGljYWwt BSyeQ040QOCizCkzDeLr cCe3M2FgFff2NJSx lUzdYS3ifNDbSBpbZm0n sCihvDppQB6qDHUwsrac f150VeAuw6nsKOMkfJRb CExdYIN2U98ab5S2 WQFwDGWfWRE6wMG4sD6a bGlnbjogbGVmdDsgdmVy hUsyDUviVXeqW258GLBy cDsnPlBhdGllbnQg MFmkVMu2G3ExSfnmlHX+ LZ27TXEpYI61oSDxgPWq s0vsfLa0UfVhQVFkGQE2 rHyoSTrnf7OgKWDi R15cySGan8I4JLThtAep rBJdOcIvdZO6mW2lSNcb zbpxx8zkewuzAddqk0ns cs75mY77N74nWBae ZHRoPSIzMCUiIHZhbGln en8kiE1hRu8+PGNvbCB3 lND6oV6tAUAwHlO8RSrs K442UeVihSApPzsi z6wrc0sinVf4WmI6OADp aeWueBicPPT5m9PrHk01 J60pVTbqAWPdXLIgCNLn MBCvwUzokd6jeS8f Ii8+BQWyhXM2lLM2kV6l RdBbQtF2WBfyV722JiMq xVAdAbpdE54qV4HkwKA+ VQSzHsx2CWPjgCjm DH6utBDeLZcwHs7uQCB7 KuVgKtPaXWfkZ3CgEIXd yfliegigiPF2QDJkHUPg kW15Gv0uzZokWMLc cBQTqR1knhrpp4odwwmc FpNeWIZiWKc4GPg3VJVh tWrwFlMiNYT3OgJ5EEP5 uKBipE4xiJshmvyp aV2gK8LcDMTigttzJn74 rP0kVoRtDaR4YNaqCvg+ F8QXLfftXN0WW8cQZNbl SzwvdGQ+PHRkIHN0 vNaxRQiyEDRwsK4fSEGy W4k5GtQlOgV9XBolV3Sw EJCsdkbzQl78bX4rCjPq VqY1KYwxY6NbmrW0 VXRiwWWwQPmrXBZ5N39h l0V3OQAmHGNgZCD9uXF6 zF6qaEsofkublDRvfRzx dmVydGljYWwtYWxp B519OQZjeWmaKwYzUpW0 XaB2DdY1L4MiWav5YONt hKmyHM1ocILoWAfeCu3d aSrqwJxgAP1yCEYo bygnMPKxuI3aIYMbcXBf tEqjDC7cHNNobpdof717 MlOeQWF0QLEwmEEbW1Dh mG9oAaLdPFQnYIJw V8KpcGJqDRdlZ942ABts JpZ4XVVrlgArH5PpRXNs mMeyLjL3f3Y6Ox48BQWP ZWFyczwvdGQ+PHRk DGO4vLnoLLiwEFAmyI4y QHLsE7l6OwUoCtH3TElu A7YyDUDjeaxhOn09aJ1t KeIaRfN2NNcdQ9Mi wmS6XCSsmXHqXJnrRRV8 G33pj7J3DXDoQQVaDGN0 gVI9iR7jdLqtazoooVWl dDsgdmVydGljYWwt XTskP521JLIocUwlUv1U BGE2P7AfHnj7MQQpkYaw IW9mnVLwCXntJp2hwKex tAxxPR5sRBYrsfhd PAKgnG3kOVFtiWKxeOvn SW1xUEVfbwygu221JtTa WSG8PAXmoTIbS7VbeP1v YiMfQBPmSVQmZ4Iz jTWqQIrqI426GSniAtS0 BQWcgfKcM9GtWPFtfIrr ImL7r9U7Rs5UWBijvZK+ QT29es70E7CoBjpo Xxy5RFMeRNT7qVQ8xJ2v UIYzWIklx9F2zAO1P8Nf dbFqwt2tg5geXHFfYPie Q63jiQUoj4T1ZISx nKX9YGPmjPytAwLtjZ95 Oyc+AKTgaAktr4AcFyaj l0iuj9clzZx7ApEpCJTk pjYpfCpoJLV7t2Sa Lp62B21dARbkXVWvXBGr VMQmBDLihItoud7myR0s Ii8+CKIrjRN2xZW7jG9b PrCjYyE9GIhgG727 VfImmJWxVunvn5nhs5ee lGc1XgBlJALpfsLibWkb LNO2r9XvFa89I6NzdUyp i8FoXyq6rz54kYCg s0S2fTP1T1YeTXDcnyec zKQiwBoaNH1dWDLymunb PWIetQ6bQXGbT6s7RqTo JqB1FLxaI7AhknN8 NLZcqPZfWNVjwRRRlD8u gpxbd4shjjpxKyQaBYXw JDa8XCx0WUAelKujEfWx NWL4YaB5LXY1bJUt nM4neUfcxbehbH9xOup+ XLt2p6defQMhJJ9fgKB3 GZ50CJ84kWThl4A8oBI2 L2UgJXUrjhqczwqa wJW3YWEcWRYxjL87Xb5p gZoqMy2iJWTfZUI8SZNx pJUrT3IjmD3aFdMzYGJh QMKgA5GnlJXtLNux F413AAcpCvD1CQZxoiBu O1LxFFRfkDetXfH9q6M5 Ms8QAL66QV25TC33eXEg r4Z0qVK3C9SaRVUk nbeaawbpvKA2SHDlPBZe qE32Yr5jfYvfLn6aGABj MHA6AWAvxVZhM0YnaJ0y FqIxHJGbKOJrE5Sj nPXcTEopX664TTaoFqH0 HDMkheShW6KhRLCltXys OmT1m6P1Yq8JZe55IZ87 OS37vVRds0O1zJU7 T0EvGWEzfvtpgodqqKB3 PJQkQGLbsX63Qu7sgUyq Wz8nCTXnSLD8CUTfoXMb H1QagV9gReSqRCMx ZTQlO6WszOVyDPsoS631 MIjdIbC8KKKtffPqV8Ug GSAurSvbUmY0l4E7Ec4B QVblibu7V0VsYxvl dHI+RZ91RFFkAC38hDSo rQQqq1dmzId7CtXlXEJk LPN4ePwkEOucx8MjEZTq W42bkBJjf5D7UAKg bGx (more content not included)... [facility] Coding Summaryon 09-03-2023 Coding Summary HTMLBase 64 IakrlesmPBk3lLf+PGhl YWQ+WD8NMFTcJ52oyARe dT8yN3JOFMsRSvsoDSEP PPhVNqSgqpSrSJ7diKKn ZXJu IC8+SW2bLPFrTfwzlZRb m2S7dBZ1O65qnw4mXDsi rEW8YLZaMiBoglpqp2nv jAv9EQepGzblGiQr XSGhkY01THO9sY39Cs92 aXRnbLDfi6dudMe0MqRv KJEhAKT1kJvySAigg7Fy QQZbR58phJZsn9D4 IGNvbGxhcHNlOyBlbXB0 uK7lPLwttqvzu8tljtnb Xpv9ar06kSIma1I1oTT7 I6EainT5HVZigLSw WqqwqQMDjK9tzlaec1vy ioybUbGmWARfUNw0FQn6 HPLcsImzUcVgJQ37OCQ7 BEJjkfHaV4EcTZVp eXcfWlX9c7W1Sj6ZP0GZ MqvkD2CQOQJTOFntuXS+ MR91wg44C6QiDjocEjf9 HGLgPOF4qQF2yQ2k XJMxTHwtf4O6kPE7I4Fi bjVsmv9uw8vzHDKwQOvd L15coZYja7I2OBPzsRI8 GQLiwUrlHrKjqB87 Oyc+YEChkVulg4RgJvbg l8rjy6fewWm9QlarUARc eqGglCxpHUQ7f9RiMj7o RUSpxRN1sVE7zB8s XxElVsG9NYhbX617PnVi gGDbBhxgF45cJ6WqwAW+ ZXUrTjd0QGNqyHjiMK5l H4KrEHMoqzceqAMi rLvlNJ9tPBTukqxzICNs fC1hNCSgP8d4RhDcXkI0 NUerO2PkGNYhhjsqZn36 yF3wUxFcHkX1RNmz F4TrqbE5GELyzUKdYLre DOZ1K60av3B8STAiGXAa EHT2eHZ9vL9ynLqonfyu bGVmdDsgdmVydGlj QFplHUuoW037MWFqrAdl PkNvZGluZyBEYXRlOiAg MDQvMzAvMjAyNDwvdGQ+ WRXxBTL2mZlvGSQi oHUoLXziHy2quPfnoIxn SA2lNIFvmmcjGHXtxE0k TXGdnDFfkAsoVX3nZBIq gcnat192KmTpXRO3 DYHcxGYzG0EnoP7fVhQp ZFEfPRUnD9JisMJxUJyx W673OPhoQqO1UDLehiVr A0MjSSCkqLieQzA0 a5O6Qh5Rf1VdjtlaR3Aj fSTpGdGwSzoyUAa7P4Zy PjwvdHI+LM09LQBcZH33 ELk0CFA3kKonPIzk QEKwP6MexP5rAwHgIVIy ZGRkOyc+PHRhYmxlIHdp ZHRoPScxMDAlJyBzdHls UH4eAc7hANKbPQGw rCunwYIzYdNvc4eqVJOk QWnsSW3uyFbzQ2SelYY2 EKZyb2d6We66T18nM7Ka dXA+JKMcmIH0eUU6 rL4pFaScToZ7KHgfJ569 JwFvwTNzDelpj9usm5ty aDp9MiI7BBHpcbVmjCcc ZYF6v3PkAn07F10m IHdpZHRoPSIxNSUiIHZh aMgnbf0anB9lWo1+PGNv tPM5mPL5bY1tNmIsZfQ8 PUidN326XwUlvHMg Qbsir1gff9tbhFy3AdNr ULIctaAcuSbbCGY7g6Lf Ct77K0MemHjmh0JkOrl0 gg87cJMwd6E9jLM1 U1MwEJOatdlpuTTvlKzx UN4jNGLcqmflKDIvaN9v ISZbI1g3DtWuMtM2CZew S5PmhnD2YLVfyJVd PXYjySRUsU2wntejh8iu rinaKiWjKIPrUTk9NKm3 IWQbdGaeJwSeLEX9DnS2 FAY6uFAanI9qhWtv ctteqW6vVps+UZS5wLTm kIQAIH0aYhidzNM+PHRk VSZ9cYpwJRafENTxzV8s CLGpN4d6BiLjAfA0 ICyuZ9DqoeN6XXUhrUZn UGBrdNFDrS3oybqib0fy xgqtKvVdCZKjQJr9NYc5 LWFsaWduOiBsZWZ0 PcK5FAM9sYZnhZ5qvJwb udmjxN3rXrb+QmlydGgg ULZ2QBh3J6YhPcn4GFAm gWndNF3tmAXgENgz Kw9doFgmfMgfLR0qTKLm jqfxr520KeBnh3loXQDt qKUvNNewXHJ6Z05ro6O6 FPRyDTTzAPX4bRB0 rM5mgMemtaqugFQchRfs foZivZjwRFnbPBvoM515 WNCaoZuqScRvGHo8S4Xl Ocb3GDWnpJuuDZ9g xSTgBZtyTu4bvCwxrMmk RJ2pSXDfwtmfp371HzQy m6ojIZVpzYIlFXmuTDB0 Q59bj4Y2LSAjZIEm UEG8oKC7zY7fnUuvciey bGVmdDsgdmVydGljYWwt ZGyhS806IIZsqHoyAuTz qUd2Q6HbQct8FTAr kHveXB3veXYhTNwfIt2v nOzavXwdXB6qPFCpwlun d239PvLzg0xgGQNbpYPm SUexSBU7K04xo7G4 KYIfQVSzYOE3cLK5xM4h bGlnbjogbGVmdDsgdmVy rDosHLscJDunB503WWKa cDsnPlBhdGllbnQg QJrnTCp3H7YfVaqafTK+ GM26UDNlTZ83pVKdzLZb w7opdFg8FeUgIMDgEUJ7 iYxxNKdmv7FfRBEd A59trXDkk3K6BYFtcApz wWNuJsGhpES4aP9fQXjd vamgp2ezktgwHiqed8qs fy19zY12X54tWJsx ZHRoPSIzMCUiIHZhbGln sw1qmO8zFy6+PGNvbCB3 zGB4oB9ySIEzDyB2HIug I866QsPpyBGlOllt i6aop1pqjAh6CxJ2MONv mpDgjXldZGL8c5WhZp84 K36qILmrHTPyVETdOFHo SLTbfLdhqr8ddJ8a Ii8+POOuaPH6sLB6aT6x YyWtStV8UAwbY529IgNn pLLfDnmvW49uL0HzsOQ+ BALlCgh7RHQdnKxx QQ0huGUmZTehMx5fFVT7 VlHvOrEsSGvpD1MlOGPe ntdiradgeUF5FILfLHKz bO40Ci3hsNqbIIMu eWNXvZ3iaficf8qnmhlj HkYvXPWoLKp3KFo3JDWy eDykPvPgDAT5RbO6PAC1 lWAbgQ6wwKhohfvn hX7hK4DtXLDbizwfTp51 yY7vXbAlQrE0UJruOzc+ R8JQBdwnCH5YI3bKAEql SzwvdGQ+PHRkIHN0 pNniSRmhGKZapU0pHXWb K9k6EsMwVnX1YWjuL6Az UJWjunkdGh64iT2eBrXu PaP2SPbpX3OiukD2 AZJjkQPzUVyeLKB7F36s o7H1TBRuOBNlTTN0dBD5 kY2efUciiwfbkPSbbVnz dmVydGljYWwtYWxp C476IIVxhRgxQaUzKtT7 AtY1DmS8I9TeJwh2LFHb cGhkQA7auPWxXBafMm0d xLlisNprEG2uCTSd vglvJIIfaC8eMSWopHVd eSrkNT1tJCLdtliey186 HiMkHYC1OXAtqPElN8Yg gP8yHmJhBJNvXPKj W0ArrWYbKXdiH334KUcc QcC2OBNpyuNoZ8BgNPRy aVptXkN8e2R7Nr44GETW ZWFyczwvdGQ+PHRk LLH2nMtjOOszGFXqfL7u WJJxK8y5GxCeBeY5SFvm U5NwHPAcdzloNc82kM1v SlBeBeK2KKglF2Ul xtP0DPZeqTYfFLynQQS7 Y62au2K6RCRaPJEjUNG7 tTF7kU4ozJtouhhqmHOe dDsgdmVydGljYWwt HRdqB603RXTmaEzjCy7N NEQ8L3KjPyx5VCKgnSmq AR9erOWrCFxoWi2zrJbi dWavKX3bTYVeseot CPUzxV6gFNSrlQUvdRzn YF4uAYVylpstf249HvDm DBE1YCFmgPIsT5WfaN2d CyFiEVQmBDMiH9Hz aEOaMTqjC984EDeoJfS3 IQWgxuLvR7UcNEBhhYaq BpN1b1D7Rv2KAWhhhFU+ OY93tk20Z6RlChcm Ogd7PHKcROL2dTI4tL2n SPUwVRgbd3I8jQY3V6Ah qhLcys7yv6olBSWyNBll C14saKUds6O1QKFk gCO6XUNjuVrlAeQqnF92 Oyc+ZFFouXfjp7LxAwbh f9ffa6roaYu8LlEjDPLq thFquCsvOXO6o7Eg Sx44V93dHSakKFLtLAVb XJMdZUJvgTogzq2txR8e Ii8+MYDpdFZ7fQQ0sX5j OoRgBoH6YHodJ721 DoYiuYEkUoqfv0qan0ob jLn2FyEpTIXkgkXipUpv RVT9c4AmHf47K0HvsFsr n6OsBbi3gu48zEVe j7J5jBR7H9LlIDTalczm hBBhrBvlDR5zYEEnunzm CTMutA0gGUVxI8w3WkCj AiP6LWnsV0SeteR4 LWOxcZSwSTVkpSATqN1h fwruy1aygrtsLtOvHZUu NCe4ZWd8ITVxpDfcBiMt JFF3SjQ5UNJ4hOXz fR2apLtqjcbdzX5cCxk+ MHs3x4kljLIpUF9acAT9 HP07QO63mYMue7G4zNG7 S4WlSRKpsmrsrgsk oBZ3PCRhAMRfzO05Sw4e lVhxZj3iHHZfBRR1DMSw bUWnG8CdzO0dPjKdLOTm GEVyR7ZjmDYkMAsi Y052MUydGzI8DAXqccHi J8VsAUEzlXemNcW4v0D7 Fr4PQF44MH02MO88iGYg e2M4aGZ4O0BvPWIl nrytnqgpcTN2OUYkLYUo vM37Lo4zaSfnGa6uGDSf ORW0IBPdrJSyC1QisN4x VgUlIOBlWAZfI9Kj iPDuSThxL525UYpdWbI1 ZKWrctOpK8GzWGLzaNef NcI4z2M6Dk3QLz02PO18 VW23uRAvj4A1zXZ8 R8IcRTXcvdyoxlmrqVI5 DWNhUJUobM96Vt3fuXyb Ta2pIDWdUJJ0VTNmdCJw Q7JprI0tCfLiJVLr QHUbF2ChpJXhPXdjJ114 UEmaHfC9VMKdevEtK2Zo BVRikUajOvQ1s6F8Gd6P VIttkry7D3QvCemm dHI+IG78OXDrAP19rFWy wREgw5peoAp0OlTjLXMa HXL1hDndWXird1HcQXJq K80gcKHcy5Q2VEXu bGx (more content not included)... [facility] Wound Care Noteon 09-02-2023 Wound Care Note [id number]#1. 00OTGTIFF [facility] Coding Summaryon 08-30-2023 Coding Summary HTMLBase 64 IandndptRUk3vSd+PGhl YWQ+KE3ZEQHuB91bbCOs rU1nY1YJCCkNWdpzJVYT UOyOXjKiybCzWA8jaXZn ZXJu IC8+CT7fNSEtBevyxSRk t7P9bQZ0E47iav6qNWia qYL4MPGeNyQxgwwil1bm jNc3PLrwLgasWuUo VBOnxK09IPD6vS00Pb17 bLRnzHIte9pduBs7MrRy UMDtRXX3kNvnIKjzu5Nf LIGmB04zxFTyd8U1 IGNvbGxhcHNlOyBlbXB0 iU5gIKyawpdle4iujldw Lww4we04oKLkj9I5yYJ8 Q9HtmaS1ZOXooFTq JwxosCVGvH0qihehg5zf mblyPpVyVMGaRRg9AYb5 IQGcgKegPlHdNV21ADT4 XXHqxfMkC7TjAEUy rBwtSaY0y9H9Ml9FK2DI GhhcI0YSBSTUNBpfuLV+ KQ37dn24Z0TeBwghCtm3 CBViJUZ8gDW9nA8m XSRdJJced2S1wZB3B5Xb krVusr3oz3grGWHoWYcd V00yjRXza3A7TFQwcVJ1 APZosLqvVbBteS84 Oyc+AREyuBjpz0XiTzlf h7hbz0iteSx9DrpyTRFu olRidOctASO5a6HrOg9y SVRhlTR3jTL4nP8q DmSsGqH4ZCazG671KcYr sDFyUyjiZ33gV4JxyTL+ CEVaLmy1SDXltUpbHY8e B6JzSUEpkifvbBUx hHxlVA6oXMBsymgpBUZx kL2zRJKkV3n9GjWuAqY1 DMnzL1UsSZNgoeptVi57 jT4iWmTqZzA4PEae F5OhggY1BXGlnGWfOQsi XMR3O73oo4T9JFVvZJVr DSV0sEC7qA9kmXssuykp bGVmdDsgdmVydGlj YQtuUPcaL613GIDpvEkr PkNvZGluZyBEYXRlOiAg MDQvMjYvMjAyNDwvdGQ+ VPNbYXN5qBaiRUZt aSMjTJqzAa7wxSczcFtk DF4wHRUidinnRBLnyV8y PEInnNUpgAkfZN3nLSFu ijcco528McSdXNY9 TUHeyGVcI0StcH1jWdNs MNAnPXNiE8DsrSJlTXfa L709NGgxHeA0MJOblxCr O3WvSGGgzLhlWhK9 o1M7Vb9Gs5ZqgdmcT6Ri mNPvXeYnSxvmLKe1V7Ty PjwvdHI+YP58PRPkSH90 HMg0BLY7qXjhZSsk MHWsR0TjzK3kZfJzGJVe ZGRkOyc+PHRhYmxlIHdp ZHRoPScxMDAlJyBzdHls AO6gEx8fTRQbFQCe nLlktUOlGcDdl8aoBFPf ICfzJS2yfAjpO2AcpVV8 BNUyc7f9Mq58N65fM3Dy dXA+CRLqbDI6lUJ2 wA8iAkOaXdU3XRirD539 WxOewQIfYhxsq7vfz0hw iQo2CyO0FNBifdRviEgr RIC2c7MlXf05E59t IHdpZHRoPSIxNSUiIHZh yXvkfh3oxN5fAu9+PGNv jBL7vJO5bS6xKaRvOtV3 RPnaB657JnKprJFd Lzlen5efz9bltCq6QjCl VHOddyFobCsaFHB6y8Jy Fo53E1AzuIwxj2TvAss3 as99yKNff8V6bHD0 I6UoCDHmumfaeVDpeZrb GS5kMTDdsobcOQCibD7j ENDlK1r6QfGmWvS8UGes N4XrshA0AFIyhFSc TUKqoDNCrP9zxeclz5jx myohCkTxBXCsYQk9ZFb5 PZHujVzlAcPoGLH8ZbF7 XML4jSDexM2lmGqx fbeilW1wQut+NNQ6aRCb wABMTD7bJifnmWC+PHRk CXT9vNswIQtoTBWogS0y OEDnS0c3BnSxPxB5 HUisV7SuhsE2EIHpfIAg FLCoeLCSqF8nircen7yo egweIiNgYFTwOFb1FXp9 LWFsaWduOiBsZWZ0 TkJ2AOV4pDGtfL6qfHcp rqeduM2fOoa+QmlydGgg FTT7ZTs9J4YuGjh9BFNz uVttFH5caIQhUMtt Rr7jyOwqyPtqJS1xCHGd tznxo019HyNbi1fsSREd hWRrRDieVPG9L87nj2L8 TMNwFIEgLVW8jMC9 sM3wfLnzsknrxRImlMul lzQkjFsvFKsjVBsoN795 UBGzcTybBvJvXKv9R6Nu Fav7VZJroIgaLT7s rXYqXHrsCd0cxOgfoPfa VY2gUIZxbutrs448IqXz j6yqOZNxuZTkQExrSUJ9 I52jg9R5PCQfGHTe RCW4nOT0gF6syRezanec bGVmdDsgdmVydGljYWwt JHudT569DNCsrNscHrOg kQj3A6YkKwo9VZBj qYczQY6tpRLrQDgqNu1s tJzwnXnyJM8mHSGeupgp u456IwGrg6srECRseELa RKljCDO9J74ix3M5 ECCmMUJnSVP0pPY7iY2h bGlnbjogbGVmdDsgdmVy pZprYYclNJkmA407JUMe cDsnPlBhdGllbnQg WBcoAAr9N6CkJvttbOV+ MR44IBOdJC70nRZteMSy d6qvzSd1FwCxWCYlEPQ2 rZjaZBnyt7LoPTEa Y41trQDfr4V9QTKjkCyv fSCtBeFipIR7tJ4wRSwi vzneo2okuifzOjlbs9og vb23jD11S08uUXzd ZHRoPSIzMCUiIHZhbGln he5vcP0mOy8+PGNvbCB3 dAY8hD1sBHMmEmU4BKwm M364JyBgiBRfTpek p0nya0igmQy3WwF7AJUf mkDxzPimZBE3t8IxUi91 V54nDXvuZIIfUMOnTNEx SEEyaNbdvc8xfE4w Ii8+CTKqkCZ4uFJ8aJ8g VcKjPqR6EGadI184FrJe jTUnQstbR47vI2TzxLY+ QHNbIln1LIDynMid LJ2tuMWsDZjjXo9dGXL8 FyPuEjKlANltT9VsKBIx zmsvszshdET8HKAoCJGi yC30Pa6zaRlaXGGl qRUKcH7bolmld7yfkcap BrXuQRWsWXh6WRl2QJKt wRvcGkHzUSH0PtB9BTI6 yYEmvS5npIahavhc jL7jI2RnKSOzfewhCw00 eP8tLiOrVzL7XSkpSft+ C1UNEtjbMM1NN0gHFEvv SzwvdGQ+PHRkIHN0 yGdmZHhiIJKetK7wFCVn O1k1SpSrYmI0DLehB1Ft BWErnaluWh44pT7hMeDm YfV9CGuaF0EmowK7 CSKjnQGsXMqcFEF7U96r b8N1GTLjGZQdMXC5uOW4 aL9adUvedyebjRUrpXed dmVydGljYWwtYWxp K090YPJocDwsPtOuWmC7 LcW7WkO8E9CeGsq9DWRx zOwoEE9idNRaKLemAs6j sGfbbJrjWF3oDBHv vmzcLODuoG4eNAEmtWGi sSqzEN8oKGNgswpgl411 DyAiEMQ5UPGfsSYwB0Sa iV9nYwQkEGGsSVGc T8SspQUeVPgaL200SMyc SwG7BCFbiyUcC9SbZARe jWkhEbY7b1M0Zu71YFZY ZWFyczwvdGQ+PHRk JBD2eZlvHJklOUGtnX2m RYQgJ5m4ZzPbZuQ3XHey Z4BpMKVyvtksCz81xS0z BqSrOyB9RJtdE5Db ycV7JCCxaBOpVEoqGRA8 P77xm6H3QVGyRZHtDHC6 yUI4bG5pvLksgcoftYTf dDsgdmVydGljYWwt RJztF006XXDuuTmgPi5Q DSY6B2RrOta1MNHsgCat WM0wyTYwGBzrRe9chKas eTsjMB9uBEMzbavc HVTnvO8jKXDyjZYzdFuq YQ5wAYFodtevk617ImGd PKJ8DTRckOJxR0CzmE2e SxXlUMDsZDIeV0Qi pVCyIOrsF874XXwoLeV8 RWFkoyInK6DfWGGbgMkr QyS2x1C8Ld9LFCnayNV+ HK22yh24I0YbHxrd Uqf9LEXgWSY6iCA3tC5m CCNjPWbot3Q4xGW9Z0Gn bbFgwe5aw3sxNTXwAPwf W92ckVGef5N3WSMr rEU3VZIeuSuwQiZqlA39 Oyc+VAMwbTynl4WmKhbc w0zrl3rscMm1ThQiCMPm tjUouFogTWF5g8Zh Cl90P67kCZbxYQBlRSWc WWTaMTNkpOpquu0kqI8m Ii8+HVUyuJB0mUF5dX3y PzVfJpG7HQguU543 JgOycLZrKohrr2ezk2ps fOg8RuTcYDYqyxWlxXxz ARO3f2RiMa27B5JouEaj x6QaJlz8pr86oCHv i5O0yUE1L4HtUQStqcba oDVhmZcrKK8hKJCathvt KFZqwH5qFCOyF4s8RvHd VwC0QGngB6FyghH1 LGFskJWeEFCpaPFCdQ5g ylkgf8dzoddxDxSvTJQz BIa3XBj4OGMkyFonJvSb UFH7JwO7DZL4bTPk tX3mjPxnqnlwhJ8bYfb+ UHr1w2klwHAvFS4jcWV0 EB12YR69pOSyh3C3yBK4 E5QiPAFwxtvwovsa lXW4FVXqIXRkhH35Bf4q iYscFi4gQVDcMZD1MBRd iPBlX0HpkM0eJfBtOPOl DMJaF2LitYZbBXzc Z133FMblDmP3RGRpfgVd A2XuCSFpbEucTgF7g7A5 Dx0MZQ44OX68EU94rMQj n0J6bBA4F1OmIAOj vmmobhkirJV8CHVlUTTg hA08Hv9doKttAv3nGHGr CGB0JQCgkPHrP5NoiL0y BuXzQLOuZDJlB5Ui cYMgTInnI977ZZwoCfG5 QSDxesLfE6AcLJVxlSty UhR3v1Y0Vd5TZo77AW77 UJ76xJFeh1H9eGX3 W2NiQTIzxmbtajcpnCC5 OEQsABMcsC48Ix8quLrr Lg1fCANfOGN4YYZdqHXe C0LrcA1bRqPrHGXn JEAiS5ZifYQrYVtcH181 EYrvNdQ3PKIdkrUrR2Nj YAGlbUwoOhL2v4L8Nb6L IAwbpnc9U3IaQunl dHI+UR91TQVpHZ18mNWo gGGqx4uafHi5VgDuEWEq BCM0xMpzJGcoh5CiZCJg D09cgVAah7C7HBRm bGx (more content not included)... [facility] Coding Summary HTMLBase 64 ZxpdhhvsCRs4vNe+PGhl YWQ+AG5GYKIrY33zdJDz lI0yO9YNXLdXXzdvGREX TWjLKfEywlEwPF2yiAGk ZXJu IC8+EE7dGJCmIfobwKEr d9F3aDG7J83gph3yYKlk bVP1QBEpDyCkoxmyd0lt zHh1DDenVivqTsXh HYIepY12IXO9cI76Kn65 bDFcqAXig9xksLn0OnIu ADHhLJV8wMxlRKqbr0Gj ALXiR43ttQLbz4S3 IGNvbGxhcHNlOyBlbXB0 gS6lRUvxbmczz5nqpuub Gtw9xn15vZTwa2T3dEB5 A4TfwqG6SKSqpDWw KuzakGLCsN5xsitcx5wa odvmQwJyMMTaNHt4YXt0 GRArbIquLuDzFA43JON8 PCYwtuHbY3OiOHTe eLpjLyO9j0H5Co9HF7TA EhdmB3HUMCWGORragEJ+ AP81pi73I9UgXgidUux0 IWSvNPD7iZX8iS3z TWXzVKtug1Q0zRW7M9Ls ooNfuv2mz7ouPADwSInj W94fdAGpi3C9KDXppDO8 CQIdvVurKgKmvN02 Oyc+IVNinWmjx3EqZwzn d3fba0rjtYn1VgwePUZi btEuxLjsANP8v4XzNg7a QVVbpJJ0uYE6eC0r JrCiPiE8ATgbK972XdTq wJYwXylqM50kG8VgtCM+ QMYgBtn9EORjsWnyDC3r E0SyRTYsnawplOWz uArrEH5yJNHgzgebFARk xC2pQOUuV7i1XgXcWfX0 OPfdO0ChPKOwvztaHx19 vP1aZzRtQaA8SDga P7NubfO3WVEgbQBzUCvl LXN0C97nw8F1SDVaKZRm ARM8mPP1jV1ojZajkkiv bGVmdDsgdmVydGlj FOnnKLmsN032YUAyuGaw PkNvZGluZyBEYXRlOiAg MDQvMjYvMjAyNDwvdGQ+ GVZlMWP9cZunWEQl pEMxOGwiRx6fcXtinEdy GL5xJQSnttvbNJCtlJ3e JOLkfVBpqLzfAN2pONPi sudii339GfEeKNW9 ALBxxZJgT1OxnF5yOaYy NMKrSMFaF8YczCTmSDxz U808RXyuHjB2XBAdpfTy F4IaPFPeoBgcQcM1 x4C2Gd7Xi0JftfjtC7Pk yKOwMfTvDlltQNz6I3Ho PjwvdHI+OT84NMKqOJ80 MUo5EGW3eXfuGMyl BLDzH8LsbG3xGkTnZRCd ZGRkOyc+PHRhYmxlIHdp ZHRoPScxMDAlJyBzdHls RB1tOq7pPYChYLDf aXbtrYGvZxDgg1qpZDXk AYfeBY7iuYgkF5SokJY7 HNMet2t6Mo83W47iX7Ws dXA+OYYiePK0oPE6 vV1mCmVfViM4AHjgR241 SfIrbSBbPbpzx8zes7ki iAd7PuL9QFThckCakDwh SUI8g4VeMm76P05m IHdpZHRoPSIxNSUiIHZh hAcskk9ivU7tBx0+PGNv sXL4qAY5fH8eXuVxHwW9 PAftM143ClBonTDg Luzgl0fbt9khcMi2ZiJc TLKrkbJohZbpJHA8n6Yx Ch08C8DwhWtkl0MrEms4 vd83yIQpy9J9eXN1 G6SbCFGfauvrfEUbnDsu EO5nKWHbovopRDUgdX4e AFPgF4h1MzLhAxB9QEiz E1YtosQ2SCYmgWLz ABYrxMHExK8xxlnik7jg nrvuMhCfYAClGTi4CAp9 EPCfbGtnAiLmROU4BoK5 SYR6lYPniV2luKuv wgrawA7zBbg+PHM7nSFv rYMJTU9fRxcsnMQ+PHRk ZJH3zNfbHLneOUAgdJ5a GMKnL3n9EmDwDfM4 NGfdQ5VizaK9QEDvaXOa AWDhdLHXeE0wtbgqo8sr gfuiBjNcYMNcIQg8HQe1 LWFsaWduOiBsZWZ0 MaF5CQN0eQZldU8anXya vbsunQ0hZjc+QmlydGgg FCM5AFy4C1ToWcs9SETn qCyaDS5olYMjYNuw Yx9ruJuloMatNV6oTJVb tbzns475MiLrv8dpJXYo uPYlDCrfLJM7E34mv2S3 MAJyBMAvMTE0mPR3 rS3kuOnpdzoccUWhcSwp leXvfSgdGXmoIJcaC821 QHYiqYwgKmEiRNw3S8Tm Fod6VUZljBijQA4o kYSsRDwuLm3chWrzeVwc HC7cOQDrbrivd857HrYp w6yaJSBsrHTfFUxlNKC8 W25wa6T4RZSeXNYr III9hGB9jO3aoAyfhteo bGVmdDsgdmVydGljYWwt QRexG534SSBefSolAbQf zCz2Q3CsUwe9VLKx nMwtCL6tdLGgGRjzUd2d vIzsjLtkEM8dLUSywxmy p019CbCah3oxRPGdhTMj JIlbEVP5K78dh7D9 GHSaSPYgSCB8qIK8eE6d bGlnbjogbGVmdDsgdmVy cWrmLPulOJosT355OFJc cDsnPlBhdGllbnQg PXnoZUq3P8HeQcmmaSF+ QK28KODmJY12sHSsfFBo q9ynpPy1OtVbEESbCAX1 iAtwLOhcs3ZePNJy Z67biPDqw0G6ECZucFdy rXNbOqUldFW5dQ8gPDuo jrsbg4pqvxesDckbv6an yw97hE36F23mLBce ZHRoPSIzMCUiIHZhbGln fs7lhM0jIx1+PGNvbCB3 xVU4lX2cTYOjCiG6HDch M504KbHznFJsQvce d0myl2ztkWr4VyG6QFDd zlXxlVlaYEZ8f4ZuIf86 H97hRRmfKLObOXUaZZWt BKXxaWsjfx9ntP3l Ii8+OBVhjXM7kAI4bF6p CoBwKwE7DHhtX032ZkIb hLSiNfpoT23tI5TjbFB+ UXDeLxb8VKOcgHsj RH2ctQTiIFbnKc8wBHL0 KwQjVhLrDEfxT4XoYEKw ovgcbgebjNN1JSFoDJHn aF22Xt6phNxnXDNw fKKTqS0lpaycl9owczuo GsQmLOHqVNm5ECv9IUTz uBhxJsDpOXJ1EiR1UBS3 tAEcqX8pmKmrczoz qO9kQ7ZgAFMupfciUy97 pB5xZcLqIvG6MStpLgv+ W8TLQrheJJ3KM0cBJBli SzwvdGQ+PHRkIHN0 iMmyVWoqXUXmiL9wJHKy Z5y9ViCmXhI1LBqkH7Hu IFNnkvxwDq21gV4lQuRb DbH7MJqzR1YpwwX3 RRBscHMmGVosWLN2E69z s5X3UXQaTQEgMXA1jTH2 rZ4lvBautbbpbUIflUzn dmVydGljYWwtYWxp C834BVDyvPrgWmEdEzK7 BkK9GcJ9B5NaKrd4BEXm xZiiGW9hvKAdPTemOe4x jBnnqLghHY2vAXOg ahmaEHYjlG2cAMNnfKSx vFqsBZ8zOCSgjneds588 ByIzILR5SKSewPXbA4Ad fG3xAbXrNTWoKBQs S0DxtTYzAMmxM778ZHht KzS4LBGkmxHrO8WrULZu cVusVuL1t2T3Xv46ZHTM ZWFyczwvdGQ+PHRk QUD0yMyzRGxeHLGqfF0j TPNmT4m6VkNhRvZ6OBjf T3CuHYIzhhmxBq10iB4f NtGxOhG9CZvoM3Wy ekJ7NZNbfLDfGZqsUCS6 K99oq3C1PXVsOUBuYDX3 xVC3aB8bsFihqctliTXx dDsgdmVydGljYWwt ZZrbS347AARavUhoEl2C IIN5X7QyBdm9BHAokDnm OM8hmBJzVIasQr0rjMwl dCohDN6cESDscust HBKraB8cXTCwdOAmcLdf TF4rEHRpepedi534DwBh PPG2SJRzeACwD7ZyxA0c PoIpPMAvQCJlB5Qf fEYtQTazY381ZFfbEdS8 SCQxmyDeF2BaTTVtcVed AjJ6x9W5Vg8SNKndkQU+ MM44qi14T8JmCqjw Zez3YUYnMVQ3dNK7rE6j YMPxMLovo4P7bPI4X8Il mlOaci1ry4vsAUKgQKdx L74wxXHbi7B7TPSx vBX4JORoyKfxXyOdpU05 Oyc+IFTwyRqnm7XrUgjd f0xmy3pyiBe2TcKoNPYk lxQtzBapJCK5a7Vt Pf40Q01jRLtdYLDoUAIz WDJhRWDrtDqduw6bcW1w Ii8+WWMtkQA3kBQ3vS4x QxZhKhM3XAjpH758 BoSplLMgAaesx5smn2fl dOa6IeMxAPReelCkuDgv JTD1b7ObUj95V7AhbQiu y2UoJxo2tm64dJQd c5D6bGN3M1BnEIFstgkz aYSqwLlfJF4mOBAnpafo IEBcyP3uCKRyA0h2FtYx NdB0BIbtB1LkcsC3 PRTeaXQmATFciDSJhS3f rrrfr2qmiejpZcXyVWVf HKa3DFq6PVGerWmfHrGz WOS6IgO6LQQ9dCUk yL6vfRizmzhqvD8cBos+ VCa3d0kvhPKjDJ8oyFY5 TP43XZ60jXYih8N2iSB5 R0OpBZElmizpdext pJB4INLoOMSkbF63Xl3m dGfqZw0oAKToBJG2ACVp tPBpB9YfvX3oQjVqCPXm CDHuX1GifFZeZOes O042ZOavVpS5FSXunjUu W7MaHTDkrQcmWmB6o1D7 Nk5DRY53LI72AJ78bENp e9T9yFK8R2PnLWKi audjfspqgQU7JAKaHMKf fM38Em6ebMcqWv0iNNPt IZV1MFKycVDeR0PkxB6w SvOhSHBxAHExM2Nd eAYlQIsfE506XKkdMuH2 DYBvlvDiA2CeTVFagLio YxF0c7L0Mp8BVj84KF33 AH95gOGto3W2mBC6 A7VtBYIcrvongexghAI5 KGNhDADkrC65Dj6fgOib Mc9xKYPzTMZ5EZMwfLBa O5EaxN8cSaPuKRCe HKFcX6IsfYLaLJyzI005 BLlpRyV6EVAzsoQtG9Zj FKUitUwdRiJ5d9W3Ab2N YWhwplo2I3YrBhws dHI+NS45BAHiKA77tLFa fIDsp8qwvHs2XtCfRDBj MQI6yCdzAErap6TzSNMk X90izTPym9B0HZOz bGx (more content not included)... [facility] Wound Care Noteon 08-26-2023 Wound Care Note [id number]#1. 00OTGTIFF [facility] Coding Summaryon 08-23-2023 Coding Summary HTMLBase 64 CfimpszoJGx4pWr+PGhl YWQ+PW4LOHHjG36qvQLc mP0qN0KQROoJQgtcTUXK IFwYVxGbexWmNI1ccAYp ZXJu IC8+WZ3oVITnMmwhuSPz g6J7vQY5P96rla2sDKpl xOK5DSHoJpHmquuhi4wg nSv8CLlcXzxdDbEn AKEfcG51BIL7yV59Su42 iBHaxHRey9dbaDu8BmVw LKYxGXO1uYduGKwlj1Mb TZYpJ80zjKBit7O0 IGNvbGxhcHNlOyBlbXB0 xX6xRVfhxnzea9hgiuyg Xqe6zl30qSZqe1W3rXC7 T2HwniE6ENBlbYNm YamikVSHeF3djbvse7lt eglqPfSmRKToKSo6QQl4 JLCxeAxiKnDzIA21PHB9 YNNfsmJwR7OqEIHy oYmtBeF1n8L5Xz7TZ9BF CggjG4CUJIGUIUpesOZ+ LB86uf64R0FtSmjsTwc4 JKGqAMF2rHJ5fF9x FWSoBEnub4A9sLT9S2Ra ztOell2rr5zqCVTjOHsl F85lrGJtm6Z1OJHaaVT2 ETZpwKrkVmVjuM41 Oyc+GJGvgPghb2KrAghs n5qsp3mcqNu7OsopWADn gjKefWfcLKK4s2GaSk6g GTSidEK5dKT5mT1w GnPdOsJ0VKveK228DpUz pQJeOkzcE78rT5IitJP+ NWCxIze2SRArlPyfCS4o B8GiUEKamtmksOTx nUqzOY8iDCOyopnuZNDh wY7qNVNhZ3e2LyBdYpX2 DDeyT2EwZZHfdbuhDw36 yR5eSgZwKoU2EQij U7BfzwR6UIMmjCGxQShn XVM8N72oc4T0ETIjYHCj OSD6dGU4uY6tjGfvnmxm bGVmdDsgdmVydGlj YUijFLxjB785WMYqiLxc PkNvZGluZyBEYXRlOiAg MDQvMTkvMjAyNDwvdGQ+ VQNuPVG5iUagMYGt gYQxXSnkFk8kzVlysGem EA8mGFOjzpsvTRQhgL6o ISUfuZFezIhyVG2qAKBs yehgf541ZxUyLES5 GUKkxJWdE8VypS7iQdGw XDSvZCRlQ1CycHVzGOvi W969MRxvPmY3YANzozTa B4RqVHAvdPrrHpX5 f1Z8Ko0Wg2TczkbfG8Qu xQSiItDvOnveJVu4S4Rh PjwvdHI+YG69TZVpYY49 GVk3YUJ5yBqyJXgc KGArX8QtfN1pFqZoGPCj ZGRkOyc+PHRhYmxlIHdp ZHRoPScxMDAlJyBzdHls BR9qOy7jTWAzPTMp dBesmDOtTyPwr3njFRAw ODmpPG9paGuyR3KfqVX2 XZSbb4z8Yg77V25nZ5Uk dXA+XFMbzBC8rET5 sM1cYmHkHyB0YJaiG634 QzRpsBDdSqqfs5swe6ys pYp2EhK7ARXxosQxwSac FKN6r1WjKa71D59k IHdpZHRoPSIxNSUiIHZh xKgsvl7ayU3qCk8+PGNv hIF8rDT2cJ6pPcKkTyK5 TComM480EiAsjFHz Fxrbu1brj9yoqNt4DjRl PKKaibTyzXqoRMS2f6Nr Su20Y3QdzIqzv6IgYuh6 hn47yNCjy2F0vJO7 T7CmQWHdxeagyPZdiDwz TH6eFZWfsbcmMLVflJ4i ATNxI3h1BrLkZlU3NBrs E0DbnlH4CVUpzUKb KADqtOXJuD6uujoki8jr iwmnOkCcWKCfYUn0OMp4 XHVtzMjyRtQkWSY6EsU9 CGE2iPJgsL0puRkc enpqlK0cRcy+HHW1oHSn dPPTAO0jOpuggGQ+PHRk FGT2xJaaWSowTGBpmE7b OQLeH7t8WtRxNuR3 ZFskX4DhtdP2QVDpsVXb DJFkgLOJpI5ldryvv5ul nkyfBuZpDVXbVRg6OOx6 LWFsaWduOiBsZWZ0 CyE1XIY3jIGsfD2tvUud ycdbfP6xYpq+QmlydGgg GNQ8PMp5P5XyPzc5UVGv hWrqKB4ncGMaOTgb Ro4ptZuskRaiOO4rIBTq yygzt361RmYds6nwYUHn oMPcEVloXDG4Q94bw3V0 VMAuWHTwGSS5wCH6 oH5juUdwhumauSOmrCkc fbAhgUceZNmqKCkyP714 USAttNhqFpBtRMe9X4Yy Cvn0JCXxfSloRK0y pMPfFAlpOr8ciAsetPbl ZP3mBTRpiebzq521EiAg z5aaWYDehSDnLNylIEL7 J07fs2J4RQBeBFWs MYV3hJL4fD4ckTemazvq bGVmdDsgdmVydGljYWwt CUiaQ178ICEodAlqVyEn vVy9Q1EfIcc6XHSs nHedKT5njYJtOHxlBc5i sQpxaSmjFJ0hIFSsjvfq y453NiQeo0nfXTPfqYNx BHuzHGO6S94jm7V9 ITEyMDDjMDA9wQJ9oH0v bGlnbjogbGVmdDsgdmVy sFygYPhmYReyK145UVHk cDsnPlBhdGllbnQg MCbyMKs8T5TnVqjcdNN+ RU54UEJxJB12fTZatNGs v2xigUs9AtPaQZXsUXK6 dWrrYGhoe4PuDARo F87kuEIfx4S2NEActFve sBQzZpOvxNH3uK0uUXos ljbbv1pxgzclLotvy1qn je79oT73Z23rOUnx ZHRoPSIzMCUiIHZhbGln km0ixA0kDs7+PGNvbCB3 hOZ4bT6mDHMiOqN4CTfd K194YhJruLMwIwok q1wof5zedKk7HeW3WUQd yhJpmIqfWXC1x5DmYg17 G53oYGmhPJXsGLBfZPMj QNUwwOekkl3upL2p Ii8+AALujZS7fVG5vF1v FrAgLzH8JNrtJ823ZpVn eSImUywkG42tH8HfxTT+ FZSsMzz1FTHujTij KF3lnPZdQSsgPk6rXPF1 UiZaQeYmOCuyT5KyXVZs qqtohwtdpLR2PESeGGAi lF70Np3vzZnyZASh gKIWcQ3vtptkd9rwsajj EoZhSRJbFBf0SQw2ZASl qKiyZcFfGUU6LmO7LVN4 zAXzeM2hoChxpenf hN3zU6TwPTTxkomiJr64 pX3fFcDuUbG1UXmvBly+ B2AHXhoaMZ1UZ5wHUMfs SzwvdGQ+PHRkIHN0 mTwzRFyhHDOmwZ8vDLRn V4i8ZrUnAuU8TYfcP8Pk IQAmpoytGz62hP2fIaMg VvZ0IOluP4GaatH5 SOKvnBQbIFxaHQG2N69t n7X3YFDjCZTeDEQ9hMC9 aU0koNrwriqqgKPlkPtk dmVydGljYWwtYWxp R365YRJpzTprVfLxDxX8 HbA1IbM4J3LsXfa1OVPm oCarDS2pfEJeQFidBe2c ePokwGidJZ2gSELn xerkPPNogH9fYQJkeWAi bYsaMI4aPHUxpjdcj302 QeEkMJQ9HYTqmOVuE3Sw iW3wPxPxRBDxOAFt Q8XhjVBaCAooE051VApy YyH7GEBchoFqZ1ZhUJDv fPjaUfE1h6X1Ff81DGCJ ZWFyczwvdGQ+PHRk CTY3gNmmSEbfWRMocC9s PRXlC8y2UzDlEmE5ELbb B9VnPNJhwejtQs62cB6y WcOnHtL0RQuhL0Bg fgN3BWBytJUxWRcfODE2 C27as0G2FWEcGJIdTTN3 aDE3fG4fvSsgdwfjiJDb dDsgdmVydGljYWwt CZpiR079NIFtlZitBp5U BIT4F2ZeTbr9LVXefFov IT4naXAjAUkmCe1tsPkk uBwrHP4nSHIxmiuv AHFpwJ9iEAGndDZbtUmf DI9lEZZroklyd980McEb WVQ4BGUgvCRfY4TpaU9x RsYqADRlGMArD2Yh gPJkIJkdB996HBnzUaU7 DWNsmsYeN7McHRJpzXoe ZuX4n1F5Xq3MAFlwvKL+ FB15dk10Y8HhFvgq Ium6PTVaAZT0kGA0lF7j MUUiNKwfj9W2wBU8Z8Pi qhHxlp7ah1crKWHkVUwp T50ajGYos0R7VINv pSA1RGOcpMtzYmVakC41 Oyc+PBSfqYqai9ZnVrse t0lby3sgcIy0QiBpJGPf gwDnkOfsRXK8o2Hk Ph41Z93tJCqbYSHiQNFl VEClIDJddIrvoi7jcO1v Ii8+GUHmvDS4uYA8dT5s DnMcIzQ6JUzbO700 DzJvlTMwEkuhv1cxs3pt oOy4ErVfTYAlvcDqnPja BGR5b5WsOl39G3RgxUtz v8CcRft2bz83sTWt k4I2tFN3N6VgDDTnrzqr bOEniOzoMR8oMQOrbxwo FNTjiH1tXNFmL3s4LvOm OhV2ZAmoC4RiczY2 VEQutPWvTCUbwNGEbL6e jexbz4xuzgowZaTiTKNj MBn8IHa3IUZapNynYiTn THP9TyK2TIB3gXIo hL4uuXyhspsrbK9iWvx+ EYk6w5ntoSYtXB0olDR6 HH64XW80iPKev9I0eWK5 A0UbYXJrbicfbwmq uEM7CYAmYSCwhR15Hu7n yLccLq4qMYYfKYH2KLAi fVRoC8WfwV8lSeGqIJQq NRHjQ1VvrKXgHBer P617VCvjQiC1TJJfvuXf H4SlRWRwqOhgPdA2d4E1 Zs7HXB80MT69WC24rKDa a5J9oRH7M6UzCFSr azuajrbzcLN0MXZoNZCi vI27Zo6xrYvcVi9hRNZm ENJ0TLPfxDNcR0FpnX6g IqXsIRDwBHCiN5Ed hJVzUQioJ406GNopHjK1 VSKuceZhP7GnUXAcuWaz ZoC4v6X1Xx7UWy94GZ75 RJ79wYHlo6F5uTQ0 E8PuTFFbcgqsqnwzoLZ8 VWPcBGEwpF96Iv0zrYmf Ox6fPEChFXP5NHCcqFZd G8EvhO1qBcVjADGt LKQsT0UqiJYhIWzvB120 XLyrXdX9HJBkhgVcB1Qr QGRcdDliAoU5i1T8Sd2A YHntirq8V1IlEemf dHI+VW80FUCdPU82vNFc mDGja8edwHp5JoEyLMKd FCK5gKknYPrgk4TnUHLj F47muQJnt3Y1UVYz bGx (more content not included)... [facility] Wound Care Noteon 08-19-2023 Wound Care Note [id number]#1. 00OTGTIFF [facility] Coding Summaryon 08-17-2023 Coding Summary HTMLBase 64 MxlfbvwsERl2mYt+PGhl YWQ+UH3QMFJvV64jaILx qT0sP6DRXOkNDjizAJUL MTdVEhDmhbLcWA9npGQo ZXJu IC8+KP6fXJOrFvwdqAHf f7X4xBD8C63usy0xIVpn qRH0PYYhLwMfswdkn3gi iPk1MQsqExeeQfIf HOJqmV89IDX3bX39Tb44 aRWneHOyr7zttSv7YbXe BXByPZP5wGetRNtjz6Jo UTPzI59unXJmz1S4 IGNvbGxhcHNlOyBlbXB0 pG4sHPdqjyfnn4wipuof Wzb2ph09iUSfo7N4zUA1 B0BgedF1CXVqcNTd CthkrPCMxG1dssjqq2hi wcnoThWhMBRhAPp8CXx3 WODlqRpaXrYvYK56QLA9 XXZbqrPhU6MlEMRa fMnyWsU4t4R4Gb5SJ8EV WeoxX3PNTORJHTrkrQV+ ED99ph33G0GuNeeeOtd5 ZZToURN2sVX0sJ3h MGMhUEtwb5Y9fGZ1M9Ys xiAgjc3es9qgPUDdZVvr Y05lpBLdm3S2XAWgrMX8 AIBqyRtzTcRgpJ89 Oyc+EJOijHbay6EbZodg f1uoz2rjzNz0SghdMELf flRauVfmCYY6x6BcSh6b ZHSnaXA1sEX0cN6j VlSuPvZ5CGuwW745OmNk hSCfBnjlX09bS6KeiQX+ UXFkZft8KNFveNakPA5q R7XmJDOhprojlMSw lTmsBN2mTMMkqewhZBCv sP3mIFUzB0a2EnEwEuT9 FChlB6ZdKHDdovkqUr25 oP3cAbFmTaX3BXug Z4NmckQ9MKYuvCNbEBzn CYM4R45vy2Q7UVNiDDBn MPA5zLF3cM6cdCqbpvsg bGVmdDsgdmVydGlj ESeeUCtzK114QHLtlXvf PkNvZGluZyBEYXRlOiAg MDQvMTMvMjAyNDwvdGQ+ VVOdHPO4aEkdDXVv nQYyJAbmTa7oyFijcOyi SB7tHSUyhdwnNNVnzA8m RAAucVFfiVcrUS0yILDw bcczb805SfJnCEJ5 XHBatBNzS7AleS5cPiRj IWTiVAAmX2PohSAuYVbt S978BSjoFdF1SSLbyzMt G0RxPMLaxJgbGfR6 s2L0El7Il9RbgtbeJ1Oi iNBrRvFuYcphLUl3U6Vu PjwvdHI+UJ24ZVVlCU00 CZy9IIV8rKnfODzh IWPyE9BplU1qZyRcNXBm ZGRkOyc+PHRhYmxlIHdp ZHRoPScxMDAlJyBzdHls SU3vHc2gYPRgVLGp kXqxiROmTrZxc2fzNSEn QDulHU8mkRojX7PkmSY7 IUHec6t8Xb96J48zO9Hd dXA+ZBWhbFS5mYD4 lW8mLtCoAmI4FHvmS092 FpYcwIYhGbxdn8jhp9et dOu2LeU5ZNRbdpXxyNzb AMP8k2MbCp97T01u IHdpZHRoPSIxNSUiIHZh rDudxc5mrV3zLs0+PGNv fGO9fLI3pF6dYbMbEdP9 UNjiE843KzMgdHOh Hjjts0iqc2pzqBo5XiLl WGPtldTrrJowXIG8f8Im Xh50R2HoiTbnt5MoZoq0 yi47bTDsk9N3dVM7 K6DqGWEnfghseWTjhDkb FM9pYZHvwxinLQPwsZ3m LKDoI2i5CvSrYgJ6OLcg O1QvtiA6LGWpbZOq DJJidICFpF9campdh7qb ratkSlLtVLJlWGx7YSy2 HGIeqBxmWrLwBSM6ZgA9 QOR3yKUzfN8vrOwq qwebrP5mIje+NTE2gZEw eQKSUJ0jPrztdRN+PHRk YGU0hSbeDLtqQTRywU8p UIBqV1i7ZmNyQkE0 RPirK0VnqjN4GJHmfYPg IJMlhJRAuB1lpijxo7rg kfxjRaQzPQKcFAa1DZr8 LWFsaWduOiBsZWZ0 LsK0XPG2cZBcfI4ztAxn yumbrY9mEzt+QmlydGgg THX0PDr3I7UsLuc9DHYl eAgrAV6ryJZoWPow Lz5cnJitsQyyPS0sBFGn zbmxf067ZnTao1gfWBSf lRCeAYnkGTT0G28fk2G3 ZWJqJBYmWXS0uGL5 dO4phQbrasqbzWXgaDik siWfbKpwIAfgUTpbJ016 ALNhwIaoYwOtYGi1O7Zr Jti6DEXxlEkcHW6e bMAtKCrgCq4khHxpaFms QZ9mHQYpjeuga661QhPr h3aiXXEsiBKjRRgqNTN9 H44sz2Q1HXFxCBCb HCL2jOZ6hR3mlAaeulhm bGVmdDsgdmVydGljYWwt QEnjW172WFOaxJmqWwFd sXf6Y2VzPkj4DTGk cEmgHI8xjVEeHIscJw2u mWhtzColWB7hBGIwfnxk u803TwUby1lsFDYdsGUc XKwvRMG4F33uu1S3 SBOlYRAvJOP5hFH7fM5x bGlnbjogbGVmdDsgdmVy hAfwRKgkSEsjY569OMCb cDsnPlBhdGllbnQg LAsyFZz3X0SwOkhpvLC+ DU49UPGkQI51dDAdgKZo k1imwQq6XcWyIVJqIZN5 pJaxENvou3PeUGCa X80gfAFrz1I2NRSwzXzz zJQbJjNmxVP4wM4nMWzo xqqex8nxcwybQhfnu4yi cj63mO74N22uRDrc ZHRoPSIzMCUiIHZhbGln fk2slJ9rJy7+PGNvbCB3 pBM8yR1lYXFfBnB3JJkc X993EiLwkXVwIrcr m4vbh2sucAg4GgT0FCYl uuExyFokWBG7t2XiPs65 M94xUJqiGLXmYWNqJPUa PEZcnSecdx4caH1t Ii8+LBWofLS3vDM4bF6e LlYaRnC1LGotM969HlIw dUSwJabrH85iS3YvvAD+ QYCnJuh5SRXxtFoi VX5rkREySJppAu1cLOF8 QfBaUoGdESbiO8BxEXQt iwfqsdpxyVB3UUTyTLWk qG28Id8rtIxzGQXd bXACnA6evibwu5axlfei UzFvYSRkVLw0HXr6EPIx sYzyKaHfIDE3ZyA0RYZ5 vBFimC6tvPofuyoa mQ8rN8BmABGigcunDc06 xO0sKjLdSnU5RZwnQus+ A6UBXqwqKT7JB3fBNTon SzwvdGQ+PHRkIHN0 pGvtZMzuHRVbaE9jBMBp W7b9OeXgYyR9UVtjG2Qn WJRclbjvFc51bU3kFrIl ZzF6QBrlA6TzmdI2 XUVbsSLkTCwxUZV2T92v a4I1PONjSMArBPR9vLW0 rP0qeScwbpgjdLFahMgt dmVydGljYWwtYWxp Y426DLMsdVbeBaMpVpD3 MyR3BpI0Y5FvDfw3SXFm lAkaOI7ujVFkPWhqXm6x pZoqsKndAW8kLKUm kyhzPXWtfG7hNRUyuNXw uOoaGU0jSZAdesuke642 YgQwZRP4JLFivOZzO5Qa cE0fHqXqGMAaSBJc P1LgzUWcPAstA080PPub HyY1OOPsjnXhF8TeRQLz fIzeGkZ3v1R9Ly96QHRS ZWFyczwvdGQ+PHRk MRW0wByxCHteFIYcwC5p ERLbO1n3AiXlYdX9MMzh J3KiFSHdfouqPe33zE4r FmAcEaV0ZShpF7Os dpQ4UUJjyYIeTBmxDZG2 C41mq3P0AQRgZUSxCVY7 qCA9sO9kaKtenneseYDh dDsgdmVydGljYWwt FMubM298BEEpkZvtMk6T LGB4T7FdOgh1NRRbgVqd KH6biIBwGUuzFc5oiFim jNpyRP9tGCVxqzet UCQuyX9tJWOgqNOipHmi KX0kHPIyohwlm573XaJi OMN2QAHtcBOtG5WumD7p XoMuSUMjKQQaV2Ee qVFfBOrvG979FGdqInP4 BMJffzBaR2HxFQIjfBfc NjS0m3O2Gl6JZNoczNS+ BP40rk05M8MoSodf Vcb2RUUnTWN4oEX9fV3r LJJnGWmlu3Y2qXH9G9Us dnUlms4og1evNXAgUDii Y10byFTjs8V4GMVc bKP1TTFirBooCeIrsR03 Oyc+UJAclRbiu7RcYneo i3kwh6zygYr5XhYoBAEd liJqaJjkFJF3b5Ls Li84F47xSYiqIRYcRPXn EYRfCPUnoTasau5hrQ7s Ii8+CSDplMY6pUD8xG9t IiJcVkP7ETuxD200 ZgOpsERqDkclc9brl3er hNn1TrHwQJVitbBrwDex RWH0n4AtBf92M2PxyYru a2BqInw2gn40lYSd w1P8uOB5C7PbFTHvemis mVNwbDshMX7vHPMkzsww LFNhmT7pQFNiM4b8UzQu KlP2BAtxT1BkkoP8 FWOqhWNkCKJmcBJZbA3h tajps6wsnsevMbNpREYo SZd6MXs1AJEedEvsVyOr NJF8AiM9AXK4bRTw kB4ikZeyujorqF2aOwl+ OCp3q9rwtHUuHY7piDL7 UQ41OH19bXCfc5S8uTV1 X6XxHCNlqtxuqleq tGA7KGKhPWGiaC92Ar5x vMbcXs9iMRShOFC5UXVs vHZwF8WjbV6sKqXjSACw AUVfP0RsuUGqFOpa D823HTnwArB6OREtsoJn O3SoZCLxcXlsTeS4i7B1 Qe5TEY88YI53KK88bHQy e1G9dLP9Y8NrGOKl kwkepacheIK4ICPeNLPz yT62No3yyOadTd9uLGMu ONT1OWSjtKLxO3HtqM8n TdTaXTGpLRLkM1Vo iSVuBRsqC742NUtgJbM9 GPPlmsNnK6EtGRSbcBhj ZtJ5v1S7Es9WQl93OJ36 HE43iSHef7S1vDO0 Y1HnHETphsijvanwiJH7 KJBeVULacH07Ly8mwEoa Tq4uFINtQMJ7BDPbuPMn P4NwjP1hZjXpBXBc PKPcO9WvnJAxGGaiJ179 UWocOlF0HRRghxQxT4Ao DFIiwTstCrU7t7W7Qz3U UNacyox2Y0WgKhan dHI+GE52CLJmEP68eQXt dQWir0gjwEr4EgTePNWx QCF5nNdrOQytc2MpFSLm C02aeZAvy6P5OBZx bGx (more content not included)... [facility] Coding Summary HTMLBase 64 NualwepvEDz1xQj+PGhl YWQ+RB1XCFIqM71nhWUq hI3zV8KSAPnXIvjqCNRZ INfPStUvbdTsDH4caAFk ZXJu IC8+AH3sLYYiSbswnCUh o9E3tAO0D64rnl6qICrf mSG0POYqHzSpxemtx5mo nSp4BEnkYkhzEjCa QVYtgS54YIY1zR71Xg69 bVMzqNAnq8hfpHq8WiId UMKpVLX4nLveSAppa8Yn SWVvJ90tmKEob2H0 IGNvbGxhcHNlOyBlbXB0 iI7vNYjxxiekg3myjbpk Uhq2bx93gXYpc0J3uAL9 Y0GplgW4NMFxlUFx LvvtjDCHyG0obfpgy7tf skwaHzDeRBRmVSw6FXl1 RQIjbTqdFsJhKQ97JOG2 XEDhcbWaC6NsCVEw tAyrHwX9k0B0Lk2WK7ZE WdapN7HWSQELXVhlgSL+ LK12bf59A7IbWerwSpp4 NVYjWOC2cXC5yO6k NNImAEprx4V2pJW9A5Hh fsLtaq2li3afKLRjSCqp P47qbRPwm9C3YFPwbTX8 ABNhnSmtOrZedS40 Oyc+WMUooEdxj0FiUfgl r8ogk0gikJq1UczoRRAl wkUtiGdeLNS3d7EqAi8m OTVvrJE0oJG2oP1l EyRwGtY4IRiaF702LxQl gZHaCcjvM48nW3OjmKA+ TGFrPwt7GWUgyJecTX1y H0DpCUHzculdbAZy zSzlOW5yJSAtyyrgAKSh zP0aXTUoO9m3BbBnEpU2 YRnmL6SrRFWjxxpzZy97 xL3rJkSmLeV0JRll O2RhvuO2YHLulQQnRObp ISM9I23hd6V5SCIuPTHp NLS4gVN2dC2fdYmbdkxd bGVmdDsgdmVydGlj BLtyTQjoG553AETwlIum PkNvZGluZyBEYXRlOiAg MDQvMTMvMjAyNDwvdGQ+ DMUkKKT5zXirQEQa qPMnQXlpKp8btJhmpXsi KU3kQJVnwxlxAPJwgG1v PAXmcBVriMarXR9cDEIo uomtn776ExWyJWL1 AERqdTUkC3ExcL8xIlFn EKOvZRXbT2RrlOKtTSdb X202YHikIcF8ZZOafsAf Z0BuLYAlrUfpMzE2 y1S5Oo3Bp4XxueiwP2Ja rTIeJwWdKimzVVq2F9Tk PjwvdHI+YK54SDHuIR83 PKw3DMB8pOosWPak MZNyA2ArzJ4rYhLtNBHa ZGRkOyc+PHRhYmxlIHdp ZHRoPScxMDAlJyBzdHls ER2mLa3hHTRfKVOa iVxvvEKbHnVxv4ciVHDc DJrxOO7xtVlrI2TrmDY7 BXVjl3w4Yc57K80hF5Tr dXA+LGAanRC8sXG9 xD7eSgKzQfX5WQikQ912 JzQstMBuBgyzc0lui9po cCu9ElW7NFEhfkRikUmk DZU6l9HfXl95C82m IHdpZHRoPSIxNSUiIHZh bSavtw4lrZ7uId0+PGNv iHO3iQK9yI7sEiYeQwS1 UNxaK610WhEjrGDu Gmted4hfu0dfeKe6GhCm QVRxsfYoeHvpFHW1s1Ji Tx44R6RcxMujk8VgHtr0 gd84eBBws2C0iNL2 R0FqHXKjbzfdcFQmjGcj IM5yCWBtxvcfEEEatD9u UCMiX9o7YmNkBvE2AKdh U8JoujK0OUWihZBu ZGGcgGWTiC7fweubc8sg qwqhXnOlVGVgSOe9ZDj5 MDXfwWkeVrSjKYL9LgB8 SHD7rUJuuH2xnOef qrwbvQ7lKnx+IAT4uIRe iVLHHX0uLhtllUY+PHRk KMR8zCmxIOlnTWBktK3p VPThF2w3InAkWcL4 DOfvH3TakoH8BXTyfNBh YAHxhJXZhR8okxspr8qu fnfbGzUxMYBiMZs5KDw7 LWFsaWduOiBsZWZ0 FmK5WOA3kLAlfX5tpTes kgpnkY3yQcf+QmlydGgg OKE5KGh4Y4PtKlu4RFRd kCrvVC5nhGIiAWpz Zx6ysMxugDraKH3zNDDv aqqzy010SzOfz5okXAUk qZYjBSbpPRZ5T39ur3I5 KMEeAINyAEO7pJG8 oO8faHzlkzxkgGRzwMbb qnOtqWmfMSboTPjfW402 CUSiiZbeGjGzSLw3T8Bq Ebb8JJWvdPrkUR8n sBQoOMzwEv9ecRvskZcq LA9nMJChnafuq540OdWk i7djWNIotJDxADhpAYF4 I36ma1Y4QHYsEWTy XLO6rVE7wH3mdAkqvbnm bGVmdDsgdmVydGljYWwt DHiwQ003QDPhnOnbWoIz iKg3Z3JmHem3NUHd cJbpLN7poVOlTYypDw4h tMmnuUaqBO0nRYRxloan n442RrJxd9phEGUnpBYa YYhdJUN0M28ne9O6 APYrVQSmQFL0yTT6lO5y bGlnbjogbGVmdDsgdmVy jMmaSPisCCftF166JKFd cDsnPlBhdGllbnQg FPzkQWz3T1ScChmiaTT+ NV93BBLvOF17vHDraRDh j5ervOw2DhRfQWPnNMA2 sLgjAKvoq7SjPYKf Y90nkVSqm0O8CZSowBay sXIdUeXktDP5cW5hNKmy oaxpx0yvnfyoFbyvt3hf ql65wM01G89xTRrk ZHRoPSIzMCUiIHZhbGln hb1peD9rZe2+PGNvbCB3 jVI9rL2kKCGjKjK9NRel I452IsXwxNBhBpgo c6gsf3yamZu8BpM4EGGn rqUnaYcaWCW9h8QdPu22 S63nUFutFVSyIGCrLFOn WLXtaHvjva6hyJ0z Ii8+CBHoxLA4wDM9sA8e IsHjEuP9FAnbO349InZd aCOyBsobS55oE3TntST+ AWTxJcq2QJDcaBuy WW0bbVNhGWhiGn7pPSJ0 VcSfSbPyHMxrN2UiBTZt harcozuifUK6WVJcQXRt sZ17Cn2vjZivYBJb aCCCyU3adrbko9zxnisv OcLaKDXuZLq1ZLn9XTWc mFykMvYbFUJ2FpE4CPO7 uLYddF8flOqaotmj fU8mH1BmBPDxagjmAi62 bE5lRyDvGxA8QQbfEwz+ R8ZEDghpZM7SN1aHDDnd SzwvdGQ+PHRkIHN0 sDcoESiqBPItpV3gSVWd W7s1OjVjXzI4XBoiZ7Pk ZEDkbfsvHa34yI7sKpWv SkX9KAciV6ZlkjX1 AMTqfVMwZXjmGAD8M47i g1C1YEHyZEKlAAE8vYC1 iJ1wgRqctvojuRRvtKek dmVydGljYWwtYWxp D646LUJxvVwrPlEeUtY0 TqY6VpO0G6JtKkn2VCRh mBdpDH8buVTmJNzgIv7u kHslyCusTT6yOWSb vcngCXDupL4pIAWreYQz dAwqDZ4eUQXirpfcm609 RqVoEPW5MUJqrUHaS3Kz aD6aJuOdWPQnZKFv S9SkpFDlLNcqU457UZpb PgP1JXEdpxCmS3MdUTLq iFbsRyF5w7W1Mv68FBMR ZWFyczwvdGQ+PHRk ISU4aLraORcqYGNmsZ3q NDYcI5w0PnSaCwH9ALex M3LmILWxwehiVk43nC8z IzMpQgH5MGykA1Jb qnK3LWYjzFZdOYhaIMT3 X73ez6S0ZKGuYAJiZVB1 xEN1qB6haQyqufcxeWBi dDsgdmVydGljYWwt TMgeK015HDHppFeoLs3Q SYO5D1MrJnf8CRPvrHxy LJ7nhCTwTHwiYq2ioGed dStbZC1iRWXnqzjj RASuoF7sINCmhXAmfJtu EA8wOOGxampjy290KcDx WOC6WFFocKYhE3OcdG3x UnWpSSLnKLUoG6Tv zBCpIKjnK976KQtwAzW8 KLLdzeBmT9SvJNWvhYdg GqH1o4J8Vd5ZZYcmsKV+ ZC30ea92E8AsFula Kfk7RSKcXUW1lWG1rU4i VLAhDGhtu3J0uRI9J3Kk hpEfqi0jw7llGAJyNGyr J54kaZHot1X9AYBv qXN7BSYddLesZnUdrV47 Oyc+FANpiHxre1WqLznw a3acm5ekeXo4RvVhJJPm sbUvqBwbOWW2o6Vl Kw05K64bEFvbOTOtUYIz FAOhIGKkrXmqzn7xpX2e Ii8+KHLxqCL4iUA4kN8r FmFnNaW0MDyoY754 BsNnuIFyKtuai5mwc5vy hEy8QwDcMBUaoeZrvWwg IRW6n4MuSv38S9LvfMxw j5CgIxw3vp56kQUm x8Y1tCB0M4DfLWCpzknl dUAxzFkeTI2fHVMqnawr WVZngA6xOSYuH2o7KpPf SaZ4RVbeL9JgdwS9 PPJtpTEsIXGjzNTCbU5g ldpiu2tlqtuaWwGgAKXz QFk3KPh9KYDcoAmeZzEp HUM9OnG4CBB8aQEn bG8uiGxrkrgdxD2vDcc+ XZl1d4dlbFGjIR8idTP2 DE12EJ06vMXrs4K6fWB7 K5NlSPNcmbsroscl ySE7JGPqAJRahB82Na0n ePiaYl0mCKYwKLB1IQBa lMByP8QwoV2tKxEyCLLu UIDhC0TczIHmYCoc Q582UJtfWeJ1DJTabiQv K0YsQQOyrGqiTrI2h4H8 Uz8HOQ63YO86JE73hAHm g7Q2aSF4X8CnTOSp dbowqpouyKD0LXXkVKGh oY87Cp5mpKrdKw8hCOYm UJB8TYCtaTCeN7EwgI5d ViTuVXAwWDZiC2Zl xNWxFOpsQ212MVvrVyH0 LMMvcaWtE4IrQPIioCun BeY8d0C5Oa9GIh42QP46 YC86tOGmz9T2uZE7 Z0JiCOMhthqyqyzsnDL0 BNInSHVzaM38Xh8xbWlv Zr4iSRAuGYE1PFHrxUEw T3SgcN8kGuOxBIAn PPKtD5GvhFWhVHseG982 QHuoFcP0NBMjfpJoQ4Nl SKAtbBreXnK4k0B5Mk5F DOwjuhh4H3EvAdqc dHI+PD88EDHdUF64xZJd aDUmq5ineRh0RlJkGYOs RWH4jXyyLQnss3LfMTTp F30jxLRml6K9PDUv bGx (more content not included)... [facility] Coding Summaryon 08-15-2023 Coding Summary HTMLBase 64 PprkohgzAIy9jIq+PGhl YWQ+NQ8LRLRaN11hoNOq vW3mC9KKBYtDMzihUWUH XBgRZpSnitQqOF2giRAs ZXJu IC8+LE8xAJNqQcwkyJAg f3Z9yQC8C37szx9qOMsw mUT4PJNuPaUtmidzu1bo wQh3ULubLrydZaCe ANNdwD42AIK5qJ74Sx64 aLXnsOArn7koaUr9AaYn NCUvEEK4yMoeEMuxs3Eu VEOhT36ojLLth3M7 IGNvbGxhcHNlOyBlbXB0 aH3oKLsyayxwc7gouqqj Ehq6ja82dLCbm2G9oXX4 I6PsejN4KNDatCQc CqqqsHLDoE7jjkueg1pq nkkiLxRyHVTuTQn2YVt2 MSRirNlmRpQzPP55UOJ4 CWJkerMtF3NkAEMr uImwPsJ3o2B7Za8DN2HW QntkB2GHQMDFDOrqqKB+ YK51vi28S1BvJkgcBtc5 IFEnDSH5vAD5sF9x YDCnJOesm6Q5bYV6X9Vz yoHvro8mt7yrWPAkYOuw T58giXSco0J9CRIiwCM4 PXBngAmgEdNycH92 Oyc+PBNthEmqy5GyPopx o6qfn3eroJm9PidyMIJu ubKghEmeEQC0c1KyHq8e AKGdkFG2lMY5mJ4f UnOjYzG0MKepM359ZdCg tPRgSorgE60eB3NhzRK+ KAQyBjm6KZEkdRsqFA3o X0YxYQOmakvrcOHz xLtrNT7vECYhtiooJNHq kY5lBSLwR5c3DkKdOoF4 KQicV6EcFDDvhyaeAf15 sY9vWrJsMaT6VGbv X5KrzvO2IUZrvMPdGWdo TQM3W98hz3L7CESsLWEl DUJ1bPZ3vX4sbCjgbzfk bGVmdDsgdmVydGlj BRqjJIrqK136ZJDpnKnz PkNvZGluZyBEYXRlOiAg MDQvMTEvMjAyNDwvdGQ+ CMJcFFX7pZjzHJWj aQRnRZlnVw0mbNpckJpi HE5lUBHtjyboFSLphW8o GCJudCOssRdgNG5gDIBy qiblj090EkSmXOD3 PKActPBcH4UlwB1oLiAh QHOeBXOvI8HznBEaBVrp Y681KJvxJeH7IQPitsVw V3DzKNSjqPgoNwV6 z5U6Lz9Oj7DrvcwmM7Mf oUBiMpVzYdryPYx7W0Ee PjwvdHI+QT01KTOySQ21 YZt0HXX3yXzaVBio YGYkA8QjrB5ySvGwOGOy ZGRkOyc+PHRhYmxlIHdp ZHRoPScxMDAlJyBzdHls UF1sZc7rYTIlAVQx fYmrnBZcNfMvo2yhWKSv JQagSV4uzMzaK8DbkFN1 NKUhc7o9Nk79J18oR2Qj dXA+MQWztMZ6gEG6 lK6hQaNfMnI5OFabB782 FkXvcKNbWitfb8gns4om uEy7JnP6QQWbqzOedZyl PXP5u3PfKi07N80y IHdpZHRoPSIxNSUiIHZh yGgyjf8irB6pDw4+PGNv nEU2dJD1fT6oBpKyUxE9 TMwwU583CeGflREi Tirly3vxx8zmsKc6XaXv FUPgxxBvkBduFVA2y7Tg Is73D9CglRylu4MhZbf9 gd47aSCny6C9uSN5 V2GwRGKkqsbklJYmkZiu MO3wUHOiioseVISdqS7m HCPnZ5d0CwQlTwV5SPvg I4ZibeW4TRVyuJQa QTEqeERUcN5hnnyqb9jr mozsBtKtHJZoSTj1GRu7 JOYkiFxqZgSrCJU1XdS3 ESC7zIBsvL4ivUgx cdolyF5dBsx+KVJ4cRCe iJQPOM6dWtijhAI+PHRk DIA2nGgaTPfpBYJcyZ3i OBPeX2w8VuAkGoX8 LSkaR9RuucP2DWLzzZXi RFGtdLHKxK9bdazhd2ws blxiSqIdTWAuVDk9YXt0 LWFsaWduOiBsZWZ0 JeX9TLV4uGUsxQ4avQoe zzauaP7nGrm+QmlydGgg NAH5KCm3N0HpFnr6AKZn tJbxYQ3jiWJpVKlr Hm7lpZsvkShcXG6lUPAi ltjlh906OsUjd0lgTFLy gHYgLJkbJJD9J94hl1S3 WFPvMULtOAB9uQY1 qU7nlTtshorrkWShpKzv lrKnlIirBSooQQroZ947 TSWxkGrkIqQjGXy1B3Hy Hqv2NHDkaWrtSH4u bECeXFiwXj2ciLczcFjy KQ2vRPOyjiitn182CbRw n8sxOFFvdDFoNIngRPQ5 N97zi1J0QPCdPTCf ULY9eII9aD3pmEvcjswx bGVmdDsgdmVydGljYWwt IUlwJ915TCVxyWfnJiSy eGr8Y7QwOii9YOSg rFqtNT9yoTJnDZimSc9b lJzexObsKZ2nKEVqknrp y880CmTur7hhZHErgLVr ELrxLIG3I07gr0C7 JIRhERPlJHL5mPN3zJ0f bGlnbjogbGVmdDsgdmVy dHzxDLlaPVhnS416QMGb cDsnPlBhdGllbnQg GJxnUPw7R0VmOngotVD+ JY65PZVaJF48pSLetQIm u9wokEl8OoDaFICrRHE8 lZrbYSqwr6AfUEAv E02bdQUau2B7OGZwhKis sOEeShZhuDS6rX9bAKxw ypzil3wtzvygVsquw7gl in83vQ14G45fZGyb ZHRoPSIzMCUiIHZhbGln hl4fjO0wTd4+PGNvbCB3 tKN4pN7nMPOwMuJ7WGuz A523SyYhuGAoJitg h6geh6gqzDp0FdR2XKAh njDvlVufOWW5z2RfLh10 L98rRGtgANRtCRLiYZFj PZWnmGjfaz2zeJ5z Ii8+KZXulYL1lVK2uZ0l VgZnBcW6AZkfC585DlHa yEJvSqnxS15bD5SdiFK+ RHImJxw7NYSwaYat QN2hiIOsHQnxXl7dGVO5 MzEfGmPdSRgwD4FdJMNj nsflbsbihKX7NWXnXAWq vV57Nu0qzWdvDPZm oEXEsK2kzpypw9oikbpp BtKrHCDdDNy6UTv7JSIz lTzdMjNyBUU3VjT8POJ9 aMHirV7tdPllgxmy kQ2xN5WxENPqzgvmCu88 wT6iVtUuPxC4CFoeMyt+ F4PSBiumBV5TU9aKONha SzwvdGQ+PHRkIHN0 lHahRCpzUQYxjN3tSVOz W7v4DxByLlY3VLfqW1Re QFRkagtuQv07wX3lRhCr PeS5WLpwL6EuqrX9 ETEhdMCeKWhmPAZ8T38c i3P8ZHWcBLVkSVE2jSZ6 rK9pfErodwuubNRtdHpo dmVydGljYWwtYWxp H963MUEgoWreXxBjSeO8 FtA7RpW2H6CrSix8UWTr qVgyKE4wiAWfUDsnQp9i vSrhvFiuVG0wWSKv lwvrYDPmcW6hQPQgfBFb aChgET6yROEipzhnm108 JaQtLWI9PNSzoUKxA3Pr oC5mJgMdGAZfLUXn K1SfiIPoMYdxD134VJzc IlZ2KGUeikOeO3XfXENe sJlwDdM1o3D3Fd96ASWK ZWFyczwvdGQ+PHRk GCF0cNijVKgcAJRuuG6m TEUtA7i3LgRrVeF5SQwt F8RhQLDesajpDi28fU7a IvEyUmJ3ZWkyI0Nw irZ7JWXgoKYsRFqtXDN7 Y10jo8N9RUApPEXhNLV2 aIE8hI7elOvepbflyDIa dDsgdmVydGljYWwt MAitL119ODFqgXrpUv3S NAR0F8IiJxm2GPRnnBmg YL5vyIUeWVbbGh4rqFmu lXczOH5vELZyotff ADLpgN6gCIFypQMlyCsj KV6mHIKrpglfm288HlRg NBM9UCYhfPLmE0StnV0h XbOqKWQtKUEeV1Uk mNAaPZinL036RGbyXuX4 BCYtwcWeD3SdLUQthRep PpA7x0O8Hz7PUSdbzZG+ MD61dy07O3VzIjer Zrb8SWAgCDN4gHD9vA6e CEPpYTmmz2G6wJQ5P0Ch mfUbmf1ka1wjSYFdRHdz B12ohOYbf0K1QRFr kNM0HRTrwIlpYyDmqJ22 Oyc+ZQUffTtbn5DeItww g3brp1zlnXc1IoYfHULm spUfgWepHDY1u9My Bn19L99vYGyxESDlYWEd EJSgCGZuaCykvi1dvY6d Ii8+TMNlzCN6mEP0xU9d IwYdTuP0RHihQ057 UaRilWEsXxpjf9llq6ne iIu6RqYpREIqhkFkmAfm ZWY2o4CnLy34E3XjsMjm j8WcHkz8bq16wSBw e3N4jDB4L9XvVTZgjmda sXIlfIoyHX5uOJEwutrn GAArnG0cRBKbO1s9YeRr UxP1AYiwH8XtdyB6 MCGwbKOhWRHyyHAUvO5w xbqsf4ljlkguVdJuVDXn NAf1ZXn5QEDeuXjtWtAm TCO1BvP5IGJ3nFKk tU4xjTrsrwzizE0sGhy+ NOc0w9fmxSYdQA0xcUN6 EJ66SH63mOVdm0W8eEN9 A7HjNRTppfhwpxug lPF6CVXpOVZnnJ53Zk8c oOaqMq9uXLTrYLS4IADf kBLoF1IsuT9xJqOzXBHf APLuD8BkiRFiQZmv I624WWemPhA3UKWrqcZb U8ItRQEpqGbgYwL5x9W5 Gi1DAD42YC28KQ37hBFo i0I5zNM0M6VmSVEy elmksvbknWQ6QPTcBSCz qZ54Vb5hyBwvOh1pLIRc ABU8HQMioLCaB1WfeR0i GtFiLOQvBLHpT3Sv yWHbWYsqM001TPbuNgY3 GNFsstBsJ7AaDFDggChh CvV8u3M1Iy2LIg65CN00 NC72kSGby7F4gFN1 Y1IiEBFbongcilsnlZP2 AVIwGOUwrE87Ck0jiZhr Pu2kDNLzLZQ5IFXzdQLo B7TytP4iSbFhBWNv MMBoT1OpxRVgOUotB357 WCehJhU6DIXaesKzZ8Mc WEUowIwcUcC7r5H5Dt7B DZcclxy6C8YyCewe dHI+KZ16JCYqOZ77fOKh bMXur7eerTc2KjRgNWYf JRJ2xSmdFKqax1QkPXTu P07dvHZoy0U1CLMu bGx (more content not included)... [facility] Coding Summary HTMLBase 64 EwzyxjfxXKm4qEt+PGhl YWQ+SW5CVQJkE05muPZx dQ3kK9MTJFnHQrxbSLUL GWoMZgKqmlEpDC6mlBDx ZXJu IC8+CP0oTBHuFrvecTFv z7V5kIP0S27nup8pTUmv ySI1XVJwPcBmdluts9vl dLe7PSnyHlccUiYt QJGbeN15QUU3tV31Pc99 hSDpxACgk9fosQj3PjDz KILjMHK4wZnxGLxef3Sz YEWyA71gsOEzz2B9 IGNvbGxhcHNlOyBlbXB0 zA4pWZbepqauo5ojdrbh Nyl3jg17uUDrq9J0iOG4 M8GdfpT3WKLibWPq VroiqSGUmO9cekppd6mu ctthHsCbXOOiMSm5EPv7 JFIbhJicHbKxTJ30YVC8 QFUxttRrH6DnSPLk kRlfRwV4e6N4Ua1CT1QG MkfyG9SEVMACFTzfzFA+ CO94oi58A6XpCkehIzd8 NAXzXGJ4fJQ6rW6w FYKeHNxsu6R9yZH4C5Cp icJjmk3ph1qqXVCkIUjj A15qvPLnj3F5LDXgkJQ4 TVKwqEzeWxDbuV90 Oyc+HNDprPurr3JiPbnl u3bzb5dqnLb5RaxoNGVb vtVpqEsrVPT5u6FbPs1e NZPklVH4aTC5jX7s JsSrUnU4BYmhN964DyJt pGUnQadeV55wG4HzvTX+ VWXoZwg4CCQhrSeeHQ1p Z6UtQPGeuotxrRYi aQrkTL8bGNKjyvczJVZn yF8tMPKrO7l8RrHuGuW9 OLprC4BvVJHjtkfyWt30 wQ2vJwGrUxX8HDue G1FuiwW5XTVphXTqAMne CWV8W11ft1B8SXGyPQPv ZPE3nLJ1qG3vpJkgiixs bGVmdDsgdmVydGlj VGwrVFkeM031GVMrlAql PkNvZGluZyBEYXRlOiAg MDQvMTEvMjAyNDwvdGQ+ FHFeOIK0aWweNVPn mOEqZQutSg7fqQwmcBln DA9tAZYfjndoQMEqwJ3f MFWlbTOmsArcLP9iTENo ymgzn503IcWsMCU3 CHTodHZdC2BodS5xIcDg ZBTsKNVrV9YvxCXxPZbi M808NExsYfI3RSLpirNk B3LlTNUlpGcjMoS9 z3T9Je9Th1YbzgveM6Nu tUEfPzZcMegmDPg6L7Jd PjwvdHI+IU44LCPsEG70 OQm4PVE4yAmaRPzk LCWaZ6ZogC9uUdUjBXWu ZGRkOyc+PHRhYmxlIHdp ZHRoPScxMDAlJyBzdHls JX4qTb1zRFEhANTw pCpkqSCaKdOvu7fiOGCl LBycPE0nxXheT2UupTQ6 PNNmd6n5Bv77M61oQ5It dXA+UQScuZF9wUL0 nO1zMrWsRhB9LMzcF587 HeHcoZNpQmarv5bvz7ml dDa2YeS4AMRdwjQhaWzb UUJ4u5AsUj99F64h IHdpZHRoPSIxNSUiIHZh rBinjy0wiV3pAi7+PGNv pDP8aKW0tV1aBeSaVnN4 PFfzZ835SoPosCGg Xvkjw7qmi7wgfLi4YpGi KACivfZznTrvPJM8h0Xg Zk92Y1PkxWjlp6UaUro8 af77oWIkg2D0vMF2 R1EdJVRgonfpjKDugNkw FV9wYFJmivniVYQolB8c LWLxL8k9QbKqKjM8AIyu S8LnuhN4BAOgyFBa OPDwfHNPkP4dmhrql6nk tsbqSxLcPYZdRDr0IRa2 ZOTojEjnBbKdFEZ3TkR0 GOP3aVXjpL7agUsg fwhekQ4gOpb+LTS2uVGt dACLDJ4uFnnucPB+PHRk CYF0lYmuFUlkIRPfhS6v TEHyU8g7AcVyAiE0 QHfuQ7XlutV7LNUknWEb QCOleJFFqX2zjdsam8dl rggjQjArQBFePNd4YTq0 LWFsaWduOiBsZWZ0 OlH1BPR2bLAfbA2dhGnz icdddK3aAxd+QmlydGgg WCL0LFz4M2XfVfz3DPFj hXznMV4dmNYlQThq Lq7ykJweiXcsET4jKSCm boqef921FxFyj6goZBLk lOUiOEqzWDR7D05em9R6 SNGwPCOtWJT4lCD9 bM9vdKnluaiqhUDxgHuv diBtmBafVNqlNDjvN470 SCXpgNquDyMhTDj5Z5Wz Tvp5UGQgiTinJR6i qSVzCUuoZa4pwEodmKgw EN7sOYWwetpgu381NeWr o6tkLIRbdZQoWQidEFB0 V75ax2I5PWGtOEEl MFS5vYS6bA2wsXfcuvlv bGVmdDsgdmVydGljYWwt UIzkI169PJUglGqtQhJv dDt5O1AdUlj7HKKj tXgkAW5bvVNiDRffJh9z xBhwjVguQM7qCDPfsjko m938IvXrb3jeLHJbbKDc EOcfVOB8W02qb3N3 YUAvBREdPMZ3vAU7tS7v bGlnbjogbGVmdDsgdmVy sBsaBGhzRZcqO587UWLw cDsnPlBhdGllbnQg KCbgWBi2U2WsPmvedZD+ VR98MRRuJG72kDAqkTXl u5hlsYx0IqLvDVDzUXL4 hTbbPUbzo2FhTPRg S03trHOry4A0PVUfgZrs jLHoPmPxyDB5kP4kJKaz fthto7ugicvuQerey0ad iw60aE03Q44vEQkp ZHRoPSIzMCUiIHZhbGln jt8brV0fKu7+PGNvbCB3 kSQ1hW5vJSPrHgU7VPlu N700NhQwlDStOgxm n1xpo6kijYo3ZvI1ZZVn xvYxfYqbSAV3c8BpPv85 X10zWSpaJQHgJLAkNFEy EEWfkCxjvq2qlE1d Ii8+QILysRE4fTL8tS2s BpJzTdH0FPqsS636UdKh wOBqJzenJ03kB0EksPU+ ECWzNce0SEDzfSaf DI3gjIDwZSkaIf0nURM2 GzMfTbKqZZvyY2RkSASa jmggxyzyuWX6ZWStJWQz iC16Qh0czVfcAQDm lKXFdW5jxjzmy6wzwgek GeJkMCBgEVx7OEu6YJXn tEvyBmHaMPA8LyI2GNO8 hYGjrL1klLnkqvbq xF4jG7NyOCXckroiFe29 vZ1mEcYpObI7NOggKnd+ H1SBZnpyPT6GD0kPEHwb SzwvdGQ+PHRkIHN0 sHjuYGifIFCziU3iABLs W3j3UmAsZeU0BJkwP1Ia HZTynqlmDa94yY0cJqYr UeU1QFcnZ6CogcU6 JNWocWBdZQozRXC2D30u a8S0SPLmQQDrDSZ0pWK2 nC4ozNfeuztnmFAdeKst dmVydGljYWwtYWxp Q182DAGiyKwiKzJdDzW0 UfQ9WsV1M1NdKqp2HZCk nXbgLF9wpUMsEGcpFr8n oLoemJcvWK0hNYXv uvbiWVMbdB4gCDTwwDFe jDdeMG9sALSjnpnjl776 JyHsTYZ4LAYjyBFsY8Ix bZ8vGgNaHOSuLABa S1VjoREbJFjkW571SQeg UrB6GFHysjKmK6KvTIMt wYzoBzM9j2V2Ya05OCRB ZWFyczwvdGQ+PHRk PSE3sDlkALhpLBAaiZ6x HGGcH4s6LeOmKvI8VXst B5UiFZVufwvmYh63fP7l AwXqUfB9WJkuX1Wu viE3UMZldXCjAAmvRPD3 P86xu2S3IKNpEKLzEKU1 nJP4hX6zoBlahsvjfEOb dDsgdmVydGljYWwt DCexZ056JCJjtGriIf7R NRG8X1UfOdd1BFBrdMbf PJ5upFJbONdfRb5zdNod qXcrGY9cKVXuaagu EUWavB3kCYSoyMVzrVxj ZO8uISJysoadb306GuVs QGG1OQAflKRwY8RibZ4q CqSuVNWjDXZlR1Hw dMRdKKzpN931GCxdIxY6 DRQfayObG2VpKWCgfEun TnF8l2C8Br8PSCemeQO+ JY23zi94X6YwEqrh Vsd2IISaWKF7oRI7cD3x GDWiIRkjc4Z3uKW2Q8Jy hgCwcr5wq1egCMHpPQew A55ubCVvt0H2HMCr fFT5KYTccTinSqUriC16 Oyc+JTZauCeok7NsRmwt v8jit4zumIf8FgGgYVAx mvBopKgjNJL1j5Le Js71R05iXYpeGZUgOENf TBWrKAUbhEcapn7scI5y Ii8+MBDarTH0yRR0eB6b UcTbUuT4JTkaX622 WxTqaIJtTwhzt6jph3fu nYs9ZbQzUJIcwjAmfWyg FAN9v6CfSo23V8LelZvz r5MwPio7nw21lULv v3M3uXE2Q3AzMCSmtpvx yAQvmWtpSK0hJMQkhgbp YNLnfJ6nXDTvI0l5JiXu FdV9QDkmN1ZmgwA2 SDJsnUFoBZNdkCXCzE7q ljklv7pisrswFuWqSCCr IEf6NEp5BLRvkEueFjEj SSJ6MvP5HNY4rFIy aX3jcOiervcycB5gJry+ GWm3d8frxWNrMS2tuND5 YN93SY29bCAvc7A2uEI8 D7TvKUOqsehbhylc gYT8XBPuHKHnrX24Uv0o gJmiOb3rZBLkDQG9UXQu aTMbR0TsdJ6iYmArXITd YAFtP3NmaSXlVAto V458ULddTyK1XISmewAv V3GrSVTapStjPyV2l0W5 Mm3XGJ88IL29FP82cLZc r0J9zVW1K2DrFBDh ueqonhlmiZS5JKVeKEUm cY88Vq9czQsvIw2vRPXq BIY9VWJwyAYuM4DzcW1k KxWcTCZxEPFzD5Qd gQPoQUyhN957PTbzWwQ8 DOVwveWgB2NfPTGppThm ZsK2d1S0Hs3OJb51XU89 NK45vBTxu5N0gFM2 C7KmLFVvygrudbvgtHV5 OJRhHJFwuE16Ra2zaGjp Zp1pDTTxRTY8GGOtcXGx N4ZgvG1hLmRrQYYk DGTcZ1XopEGwGNuzJ936 LMcgEwE1CDFdwlVuZ9Wh CAOosInmCqC9s9O9Pj3U WHshagr4Z8BcHbqf dHI+CK81CQKbYO25fQPt kTXvr6mcfEy1ZiEnGUTe BXW3rIkxAPyce6XtZMIe Q25ejVAwo4W8MPRt bGx (more content not included)... [facility] Wound Care Noteon 08-12-2023 Wound Care Note [id number]# 1.00OTGTIFF [facility] Wound Care Noteon 08-05-2023 Wound Care Note [id number]#1. 00OTGTIFF [facility] Coding Summaryon 07-30-2023 Coding Summary HTMLBase 64 ScqppqqvOQu3sFz+PGhl YWQ+FH0AEUAaK33nfULw bK4qT6UIMTkDUlwiDWEF ZOzVHmFtdmEnPR7nhTGg ZXJu IC8+MV3eQBAqHmwchDFq p8L6mEO4R50nkj7oDJel fKV0CJDrEiBtsxnrs1hc vSy9CRusUpgpIaRv KSYdcF77WYM5yN60Au13 fUJhhSXwo6plmVy4FkGx PGZcPVR3cCwyLNtxw4Ay AFYbN22ryNUfn3P7 IGNvbGxhcHNlOyBlbXB0 uI1sDGvwsrksq7fzmaij Fze8xh98rBZxm7K4iIZ2 C0TbykZ7HVUhiVJt NxkauCUZfV4nllcnk0gb pyovFmEtSYMbAHa5OTb9 YZTyuZolFpWrMX97EGW1 NWGjqkGaL8JzOKGn fQjhFbD9y9S8Oc8XK3LK HmbpQ1EYALLAAHiekFU+ LR21bp13B9SmLhqaFoq5 JOAuOTY2sIV4rJ9f ADYjVAhhg9F5sKE0M1Yn sjAeia4qo2snYJSkLKxc P85wfEPed9J1JPVdrJC8 UJHdxZrnGwNzhC01 Oyc+IKBlzZpde6KfJmdr a7saw2bftQn7DtuqUZJv peZvkZlaXZR8n5RgPk0q UXOaqYV9jDT8dZ9r IuKuIfI0TXiaG415LcRp uZVsBhaxS26nA6QesJS+ MGAxJch0RAZucDxzSM6b H5HcJUVadymriMJs pObvBN1nXPGmdrelVGVo zS0tSNHjE5z0MuHbWwX3 YSdpN2GlMHXulzkrOg73 wT1tPiPvYnG3BIsm L2XvpfA0RMOknLUfKYwu RYE9H10qr5Y8RJBeEWXh LNX7kOP0jR0foPpbbqcm bGVmdDsgdmVydGlj OCmgOPxqF034IKMycCly PkNvZGluZyBEYXRlOiAg MDMvMjYvMjAyNDwvdGQ+ DKYoLOR3bEkkYPKp eHGsVKzsPq1rcIbxaKcm MW1uHPXpegniCSBjpM9y CELykBPbnEwxHI3sBCZs gjjug553SkGhEAP0 ESCntELfH1AgqP1tBjGk VBLaHZKpL0YmbXAyIMqr X373LQvhEnP7OBVzjcBi W8HxVQOqhMidXvP2 z8S7Uq9Bb5QpevffE4Mw xKNzEzNeVdlwCCn3W1Gg PjwvdHI+TU63BLLkDA81 WGw1ZJF1oHqnEPlu HXHiH2TxjR7dCbPxXVRt ZGRkOyc+PHRhYmxlIHdp ZHRoPScxMDAlJyBzdHls RE8oDz1fFLTlUFGx eOprsQYfVkZbw7cjIQCv DZjzTG8vsLncT1TtuJT7 WSBtr2g8Wv19C08wE8Xv dXA+FTHqwIS8yCN9 cJ3bRmRqPvA1GMcgX040 HlMmdEEgHejiy8rwx8ki jTh4JjZ5ZEMhekWleOpk IOD3l4AdGh28E66z IHdpZHRoPSIxNSUiIHZh aBaglg5hhS4yPh0+PGNv aIW8aCG9rE9pPkTkCuF8 QWmoO090UxIpsWBm Mxtue4rqy8cbuQq5LsDb VHCesxMtbIcmBJK7e1Lg Fw68B2PfsAnwu3QjDrl5 hi97iQOzs9J9tJR6 X8KlAABjgahldHHppUcv LV2nWNQmnouoVIYooK5j AHAdD7r1AzCoSwO3JAcl N6CsgxX3TURwpJKj HWOwjZFOaE0laxuza9pb eunpMcYoSPTuPPa2EDb7 UWIxuSrpIcWoRTA7CzB9 VRE2rWBduK0uhGer ytcnmI6pAvj+SCE8zEBo bTKQJF1jXlsijNW+PHRk YHB3oVhbWMhmLZEqhU2f AWBfO0p0AaUrYxO0 SUkcB3KsdyZ6NOBuqCDx TXHthJUXzT8jvwxke7hn ddbzMtKpQOJzXNa6OHh4 LWFsaWduOiBsZWZ0 VjW0CST9fJUkxK1rwVok drdvuN7xNwg+QmlydGgg OEN9WEc1Z0SaNgi4XLAa tAbnGF5omDNlXEav Ad1hnIuwaKcvES1kKBNl dxsmu071UeEox2hyMZUr fAOxRBjpRVR7Y28vq1F0 SPCdEKBqXNG7iCM1 oB5yoMpbxzfhrKRnsIei fmIeuXtbKJiwOPxmA948 KZAffEfcKnDkUVq2U4Qx Sei9NBDrbGljTU8j mVMrMHjeXy4tkMjtwKcy OC4wWZMlhzbox607ClId n3xiNHYrbKObKUisZPH0 S84wi8U5GNOuZGVl NJW4eVB4eG3pcRhbiglu bGVmdDsgdmVydGljYWwt LAlaS956EUZswExnGoVq oIw6G6JcDvi3GYCd tWewZQ5wqCEdXGcdEg4f yMmhwAlpBR6cUQFapyvg u235InYnx7feVFVqnITv VItiVML0L99ga1W8 AULmHMUsFXV1mGV3gD6d bGlnbjogbGVmdDsgdmVy jJveHZhaQYbgR381WANb cDsnPlBhdGllbnQg ZNtbWDc2X6GaWshqrGT+ BC52KISbCI16dDXrpTFw b5vxpIo8WlOvMOMgQEO3 vWzkETusr3CiGNPc P64feCFuc4F2KEFpwDhv hHYxFcAjvFW0gN9tWGkv mwcwx3gjwbftQxaxj7re tp24jH88Q26ePZbt ZHRoPSIzMCUiIHZhbGln hu0jlB7pIp2+PGNvbCB3 xOG9vC8sLHSsCuK3OLgi C444XjDxhOLbQrcu g0ypi0cymLb0ZlI2RIGa qwLszGgaYVB8q8IaQz14 L23qNRjhRGFrVQNeSMQr KFLzpDmcla9aqV5i Ii8+VMWiyXY3uZO4pH0b JsDzFjA3XFbeW832BcKq xMGjExysL88pJ2PliBO+ UGFxXxd9MSGaxWom JI2izROgJCugPs4kNRW3 ZcJvCgVrOKdhM0OlNRYo oerbpmucwVD1WLOyJJBj tT80Qm2ycPqwQSOa cBQGuC0lqcmmt8mfrfke DuUuTYUfHDy7PEw0JVGc wQjvSvOoWSP0LdX2SDX8 gJAlmS2lsMagfzst kY1kE2CcLVPgftsvQg48 rN0gOeVoPjO3NKjvFkk+ S5USWnwvNV6IJ0tEBJqb SzwvdGQ+PHRkIHN0 bUmbECsyHIWvaC9bCZDd F2h8EhQuLvK9PCogY1Zf YQSvrdaiKl18aV3iCxRs JaN6IDdoA8ZmhkE0 OVHzuKIkOCxrIGK6I68k v2P8PQUjIYWgOPR2hTI0 dU1jdVjgdzihoCLcqFrc dmVydGljYWwtYWxp H824NKKfpIwpYgSsAtE7 QcM2DtA8J2OaPjw5AGDi gEnbQV6bpTBoSAmbEm9u nKvjxEtrPW8sDEDx sjfdQLPrvS4uHDCeaBYo zNgkRT1eIRJwudhhl804 OhTjJQR3HNEphHJzS2Zv uB4zZfLjHZVjZGDd K1VnlTOdLOiqY336QFlq YbI9GBZfxkHzU1LbWDAr qAljKeJ8j4T7Ku46CZEC ZWFyczwvdGQ+PHRk KGV3sEhzFRcrHEMfiJ6o WYVfB9d5WnLxDpV0SKbo A8HtOVGkgwbnSt01gM0i PyMuRdI8VAoeZ9Ft wpG7AXNnnRDaSSqhJRY6 W60zr0O1NSPnENEjFMD0 cJX9yH8buIxwzlwcuLTd dDsgdmVydGljYWwt ROchW234WAUksHtrAi0D QFF3W6MlAlm4HHQyiUpz SY8akVFnQXgsQe2tuOnp bIxrEH0nQXXpzdrt QXRxnQ0dDFXpmCGfxFpc PN6vWLIcbtssz786UoOh REA9LNRcnZXaW3FuhB6f GmEwRHKlOODmR3Uj eBOmCCoaG256AAjdDoE9 CNJwwrBlM5JzQTAupJec NyA2z2X1Pv1ITSywrIN+ QJ14tp02O2YrAehx Oiz2NWEiRTO6rXO6fH9u BXDdFNoyw1X6hOM3K2Ff juNbcn5yo2smVSJbDBrx L67osLGfg1H7LJZh rMN1KQIumLqmFvAjsB79 Oyc+PJOqaEbkn2BlIxwi j1xwn6dxnFv0TuCrKSOx nuTmsRmoOUT0d6Ny Xu84M51fCNjrHWScALMm OXFrTAFayEdhmv6rtF5e Ii8+HSRmpGU0iKC9uH6v PwSbJwH7BHpgD614 UyAuxCQzAsrpv7frn1mi jUm5FcSkRHAkhdPlsApb MDB8w6GlRt54B3CwyDtz i3KsRta8zh82nBBm a6W5yHE3I5PzECAebvwe zNKeaFxbGF9yBOWtkkzn DUDpfD7pTFGiZ4v6UsYy EeN5SRrqF9NfgtS5 UZNgmIXhIMBeyFGLnN9n uaftv9xbdbjjSiWlGYHt EMb9PNs9JTDmhSxaKvJm GVD1JyA2JEO5mKBw pG2buZpqbcidnV5mAws+ JPr5o4dunUBvZD3ezQU8 ZM29XF51cJTix0E0qNK3 U4RpRDHkxfybszky yLN6KBQtACChnB22Jn0y rSqsVf7mOGQkIPE3LCSf wKWeR8XrkK2bVaDbFHOp CBHaE5ImyBMtUSsh L038IGaeCzV7LHLlupGu U4CdPRQqkEbbGkE8i0A2 Yh3FYS33FC69LP41yPVp p4I0gRG5E0YqJLEl oimbosatqTE8PDLbGTHs vY90Qr6qyMjmLb8bPFDn WNL8UTPkkZFdC2DzxM9m PeDrMBBjVVGsA6Wj bTXrBHncC575RYcyQoX1 BNJhdxSfG7IxNAFcvTrr MtO7y4H0If1ZCn86OI85 UL50tYDuc7Q9xOF9 K0UyHAHgxbtccmmqbEN5 UICzELPbpQ53Pp0peGrt Xe7xGMWqUKF7UNVyqPZu F6DngU4wGkPmQEWy MCGsD3VwtYTmVSbzC918 EUekGdV5XSJcdvDiY7Zp KTXmjSlvPiR5a5A9Ll4C MTcoumu0N8FdBlvm dHI+GS83GUUfCP90iJPm rNZgu3rnwDo6AnEgMSPl RTE8oDoePTumc3DgTWUr I87elTOii3A4UMRo bGx (more content not included)... [facility] Coding Summary HTMLBase 64 XzffvvymHVp8uZi+PGhl YWQ+FY1YHIWpU56amOBo lS8lH1DODCmPSqdhVOHL TSaOYbWpslYsCM4dsBNs ZXJu IC8+GN2rRRWdWacrgEWm j7Z1jOW8U02gun2cDPfp cVN0LQZbBkTmnkckd7ic hCg1PKrzQvwmCaFd NFRibW80DAX7uJ36Ne15 wCGowFOqk5cdsYu7UaEm QVMuOED8dWdyGPhtp1Gl IVEjG84ozLJlm9F1 IGNvbGxhcHNlOyBlbXB0 eI4bEUmqyojna8kufhvp Mid4ry09kBPqh8W7jVG2 X9VmgpL1IVCrqTWk EldxgEDAoC5rjcwze1qe dpvzVzTxFMWtWHh9HVn3 VWGdmHkeQkSgRV20NBM6 VPIayiNcH7XjXNNt sFpyQxI2i7I4As9JA5DE FtgrT1QEEXJIVDmzaWQ+ BK78sn38K7GpChnzBtr1 WAJkTNK3gGP9iX5d JDRdGDsmn8T5bHA3Z4Be ffYdjn8rn5wzVIOjFGeq D83ovPGll6B1VIYtvTN5 ZIAmmZomHrWucK27 Oyc+QMVrtIvfp9TuJrmj m2gim1mfuSl5SxonPFMa kyRcoIveKND4m5LlTw3h XMRwzTG5gHN6lS8y BsAsSgU3HTjaN254UuJr gLCtXyxtF63aH2YmaOX+ OXReGwr1OXUcwZfuCP3y F5MhIPHviboyhBGu aFtjDG3pLNEcpsuoGCEd wJ4jWJJgC4q7OaDvWwN5 LPlzZ6FuSIUmtgdpIl11 rZ3rIfLyQsT8UKva D3ShczN6AUQveQQbRNbj SXK9L72zh6I8NFUiZSMs HHU6dTI8bT7fgObayfnp bGVmdDsgdmVydGlj KTjsZAmtQ245ZRJqrMuy PkNvZGluZyBEYXRlOiAg MDMvMjYvMjAyNDwvdGQ+ PTJgIQP8kLdlUOYj xMXvQAoqXx3dzOkblQyt LR5xWEXvifbiCFXccG3l LNJrpEVrxAsnAR7fNMUs mmrtz869ZnAgVQZ7 ATArsKMuG3DnzP3cHeOj OGSrNGBaQ8YhqHItXXbp S341RYsvSaZ2HQKsyiQd D7LcUFCelPciWsZ4 a2F5Xr7Vd4BwdzafH6Tq wMEfJuGiRocgGZp9O3Ab PjwvdHI+VH25LCPtXK52 OHn9ICT1aKifUXrz XHViZ1RgbD8qDzFhREKm ZGRkOyc+PHRhYmxlIHdp ZHRoPScxMDAlJyBzdHls WO6pMq6gQSZzBFZl bCewcRAxSoIjd2cfHMKk BNkiXX1gaMurZ6HqyPW9 ZKJgm8t7Df14P08gM4So dXA+XJFwzPA9fGL9 pK2dZvAzFyF6LVnhG802 DtXdrIRmLwbig0xnm7cj nQk5MwW9EUApaaYwvDbi VBQ3v8UrBc85Z84n IHdpZHRoPSIxNSUiIHZh dQkamb9teO4iJu1+PGNv sSM3cIK2oF9qAkAwPuC1 EGuvW840XiXgaJFk Ihboq7yfr9rrfFi6WiJw UHUuzaLmgBqyJIK9r5Kf Hf04U6SeaOjcp1LyTqs6 kf59tWFkm6C1oKK4 R4TrJNQmkaoleEPhiBwo LE2jHPUlwtcyHCIzzW6y XMHbQ0h2UqBdLdR9GVir S5OotwN6CDYkfPWv HHWluJZGwQ3uwsnmf9hv srsfBqYhZICfGDx8CRu3 WVGzrQzkLmTrDCK1VuY7 GDR3zPYbtJ6wuRoe nnwntW5bIhz+YDT9sFPk oFFFRS8qXmwccWD+PHRk IUP2rAuwTHpnSYQpvL5h KDAoT0x0XaShMaK6 KAlkF0PqzoF5ORIdmUFp FMVfcQBWsE0podkqz3ed hcunIeJjJIHgZYd5WCd4 LWFsaWduOiBsZWZ0 QuY6SNK8zWUclA5wpSnh qkijoV5uMqa+QmlydGgg PPY4RKz0E4BjZdw2UPHe bIadND7ohFTzJDsv Ux3uzEyxmQgzJR1pODWf umhfc168FfDuf6uoDOYc gWGfKVsvIKT8T71ix2K7 IGLrNUBhHOT6cYH4 bR0kmOtpjcakbQQcoLaa vnVlcMoiLEzmIUasK413 RSGsnXclLiLwMSl7A6Mk Yan6HDEvtXvkTX3f qIQjALslMa0syUkkzCmj AF2sHBEmgtsdh173GxOx s7luOKSomHQxSOukLFH1 Y88jq8T6TNQsTHGs OLN1uTE2uY2rbKspxvuo bGVmdDsgdmVydGljYWwt EAokB281UZEynAhgCpSr xOe3F7QrTlx1EADy yVzvFQ2usNPaUExsKq5s tBraiIfcKS5fFGVhlxfl e259JnExg5wcNFHfnMHi YRpuEMR5Y80ws7Y0 RLPqDGCwJPT8cPM0zI2q bGlnbjogbGVmdDsgdmVy qCewNUoyKDfxY644PFKg cDsnPlBhdGllbnQg KDbdSDz7P8LhOmmpgFL+ JA77LDSeCD19pGOrqIRd t5srqNl3KpKuZNUnSDD4 rHbgMBdcy8OyOYRa H64weRCxk7V4DHFslLcf oLWjXyPixEL6kO8dYWyj nzwwq1adalyiHjgzc6bs jf51cD87V49gMPwi ZHRoPSIzMCUiIHZhbGln xp0kdC0mRw2+PGNvbCB3 yUI1kX4yZIKsUbC6QHqc X957BcPuwEQeYicp d9ago3tweMt6XjK7NIDd iuWcnOldVEI8m7AeCu77 Z88uDSmdSNOxZYKsTWJk UJUbsMzrzm9zaQ7y Ii8+VGFosEU0mFH3sQ3v YvEdPmS5DXnjS971MuHq zECcPawpX79aW9ThaLC+ QGPuEkg0IBSqxSsx OI8gnGUvVHtrIu8fCSZ8 VuCzXgEgQXbyP5SaYWNx odvemqbysFS5JLVqIQCl gE65Af4foKymVKYd qGEScE0ocoqwc6olrlqp XiVmXFXeDDp6HIw6LPGk eSywBtUkTTW7XiF8LZH7 uIEjoD8kzPukeawv fB9wC8MbODJtwakpWe94 oE3cHyVcQfH2ZUvtJow+ F1SROxrzFZ3HB4qZYTdd SzwvdGQ+PHRkIHN0 oFtcYLodMUSmsT0dLIJc O2c7JiGmBfC8LWikF3Vx MZGxbrkgMr68pP7gHeYj QqX6FHcnR0CpjyD7 KMMrwOUqNJhrXFC7M80r y7Z9NHXgJCIsTPD4tYB2 qM0wfHbtqkdhqUNxhMkr dmVydGljYWwtYWxp X120JFHazKfdQoCfNzY3 VuY8NfU6X0IzAei1RQMk rSkwFG5hgECgPDqbTg4l kZdpyJizFI4dLYEo eycaQYHacT5jDGVpfUSt yQacUM0vZXSihlqtq173 UqCzVHM3IGLqyFNjJ5Sb dL9rUwMgUJNhQREm I0OhwRPiBQdmY904HBdy VpX5YSKjvnUbB9AeVCNx wGulThJ3q3C8Oz76PGQV ZWFyczwvdGQ+PHRk KBN8uZpzBAuuHUDraH6m YWIfT2o6AyCzIyG3MSqu B8EcYNDfwycsWm88vO9i PcQxUtG1YCaeB6Zk vcN6RVUlyFTcMCsfOAS1 C50ir2G9BWTxEZJmCNO1 lYC6zR8srRnoetrtcYHs dDsgdmVydGljYWwt FMwjN528AFAzmRfdWm0N AZY3M8HaJsd3YPNriDkk LW2dtRCeRXxtYg3tiPpy hJkmDM6eTXMpqqzw VFRecP5vRBIyhISwdJrl OD0bPSBmglxhf567HmJm XSD4DXFxrHTiR9EecF8b TcNxWDIaPNQaK2Co zPWzCLjpF850LKrzLdD5 NZImjwPqU5EnZBVjsIcz LfM4s4N9Li9ZSRastZL+ LM13cc42U0QkWora Eys0XLJqJAH6dZY9nH0u VASaIUghm3U2eCC4Q7Lg kqUbsl8wb5skNCHhLHss R76gcIVzq1G0HNVx aTJ4RAPnyUkjInTifQ18 Oyc+EVUmqOsoe0RvOwov z4kkq5hnsEz6HhFaOPSr taCrkQujMII5a6Sp Yk17X26xCFkfHRVvCLNj HGXtATWgyLcwyz4ltE0u Ii8+YFDchOS2eDO5wI4n UpBaEhN5SSvrZ908 GxQusQYgDnvwa7ylz2cw pYt1NbHoBYXdtdMfeVwc YKG1u3QdYv29T4BlfTqj w8WcVol4ga04bPTq w0N5xPX7K5XzBHEsaaua zWOepExgYT6fVUUlkeag TUKfsN8bFGAuF9e5NrIr GyO4IZguC1NisgD2 WUCinJEkJOJvgJHRlP2o lzrru3eulsokXmNbVJNi LEc4XGl8EFDtfBijLvSg SSM3IgH1TMW5lOHb nI8rbBeuizhxwZ4uBkg+ AAa2l1veoRTnTR6quUH2 RR68DZ40pIIgv8P0qEK4 C2QuCILccepcnydf jPQ7HTPpLKKnnB35Zl1x nXvbHc7eVPJyPTK5WKXx jAFgW3GckV2wGkDrYZCm PRSaP7PgsZVdTObv D531EFpgScC3FDZbhfIs R5NbCKKreNieZrB2k9Y5 Oo5GEP66BP66OB32kMOr r4M8iON5R2LqJHDz wahphhojbGR1WAFxNYRi wW61Gx6huKfbOv7fFHNw GTE3ZMDcrSNkU1UxhO8h KsKySUVtIZZuB4Am yIZgHImcT322GGtlWgB4 PSCsgcIsC2PqLUBkwLfm AxM4s6V3Rl9GTl00FE55 CQ82aGWrs3Y3wTP5 D4JfIXCbsueasuxgyXX2 XFJtHUJwxK07Rm6cuFpc Wr4qLSOtXNO2CUJthWWc M8SyoU1eVoRjKORv QCWiJ7YsoJZdWPefZ059 JKrvCmZ5NGXnveOyT8Ve FDKenMcoXsC6z0P4Lh0H WZbltbz0Q0ZjBtvf dHI+ZG08ESYaUA62rYFk qRIjv6mjsOf4KaRtOLEn XAH5vOwpFYegj9RoHMMo Y66lwFVnq5M4IJKr bGx (more content not included)... [facility] Coding Summaryon 07-29-2023 Coding Summary HTMLBase 64 JmkkmbbfUCh9oCe+PGhl YWQ+LJ4LLQTxC15utUWl wL5mF7HMONjIAiioSLJD HGgBPaUbtgIzWS8jcQMz ZXJu IC8+EB9bVWMaYdmptGUy z4U9eGK6K46lzi6eZKdw zQH7WEPqUzYciowrn2hq jSt4ZAgzHknkLyYr FMKwsY18VRK9sU35Jw71 rHXyuCBsh9lujRz0PcRt KCGbBAQ1kAtnKCjfr1Kr YLNuO23soSMqe5E7 IGNvbGxhcHNlOyBlbXB0 eA8sXMnfkfcop1ixeoro Gge0tk11dSPcd8N7oWN0 G4JjcoN8MWUnwILr OqxsnIHDdD1tcbicz8vn lqtgNoOeFTQrTNl1IEd9 VHXcvZslZbEmFN85MAR2 CZSanzXfU0LmQCUw lKhgWkS6d4W5Is9UE0JQ MghlG2KRVMGCRZvteAM+ SN01th91V7XoQtfaOon0 XNXuTGQ8vHR2dD7a GTStATuei1O4uNA6K9Hn vfYprs1yt3wyCSTsGLxk W14nmDZkw6Q4JRShfDJ6 QGZlbAxvWxEbqT85 Oyc+JOHxrVvjg2PsJrhe c3gzu6aiqIo9RfbaBQCj qwWrvHmeASA8i4LvUr0d VRCepQA6oYM1fG6l MsLoTwA9PTmqJ933HgTy rHMjAmzeQ04aP6UoxTN+ LYTjKlo9QGSriLhvOO0l N3NbBYXjeipovCJo mIdpXG0yZCGqpoxyMNPy hU6uKDIkW0d7WlXeRkC5 TXbvQ4BrPHVrevhtSu08 jW2uBcXkSnQ9EUrv V5KysnB1UZOvrHCrVRvr EDL9E60fb0B5VJNdPVMu NXN0gZM4mU9cxPwfebsc bGVmdDsgdmVydGlj EKmrAHmlD397KKAvbPce PkNvZGluZyBEYXRlOiAg MDMvMjUvMjAyNDwvdGQ+ TVKpOXO0dGqsRLBy tZXlJCsmQs4qeMsagUcz AZ7wHGNkubiaSABwiO4f ZZFqmZPgxLiiDT5pCQWf mipqy725ApYhWBZ0 DFTflBJfC4ZrtS4rOnPo GRZkNKDhL3GtaQNcNUls Q317KBbqZtI6FHBluhBl G3KzLXGxyAlnUgC7 n1C8Ip2Ji6CizjzsG9Uz iPAuGnQiSbzpSQy0Q7Ts PjwvdHI+PZ95UNGwKY00 PXv4DKH5hDquPHgz GMOeD4VpvI4oYeEfSEJe ZGRkOyc+PHRhYmxlIHdp ZHRoPScxMDAlJyBzdHls ND2rTr5cERPjVSRz vWjqyTQoXrUbs8pjFXQs QCalWL4deXcgJ3CdgCX9 QVIoz5c4Qn41Q36eE3Li dXA+ASOunSX7eLL1 yQ1sYvLoPdZ6YNvlV668 LgKyhWAyZbenh3rlb4cw xQe0NoH0AQVnjuHlzDhe QRE8b8QwLf59L37q IHdpZHRoPSIxNSUiIHZh vEjlal4svZ5aTy0+PGNv cYM3xPA4kE2tBrSyUvU0 CFzhZ550MmNcmQXl Kauzh4ltt0gwePj2XePc HXZbeqUhuUpyIZS1r5Wc Nr13T2ZleYvig9TePmw4 lk53fFNvt1V5bJT2 Q5QjLLGhaztkjZXayOei JY6dLDFqillbCKYkuE4h WXFgC2i2SnGoNvW4DSdd D4HymbF7GDLlgBYw PVGutDPEcL5uogjna1qy rnfpVkBuBMOcOIa2DUu1 XHJajWrbNwLwRTP0WwA3 XMP0cBIleR6vpFwk lpnuvF0qZkp+MTY7pUEs uVBUEV7hAhdhaST+PHRk DYV4jTnpKCzuTVQntJ0b VGDwH0q9AxBnJyX9 ZWpfM9EiopO0DDHfqEDo IUUdpVSLcD5bntstu6aj xjgnFqWkBONvWIp5XMj8 LWFsaWduOiBsZWZ0 GmU9TTE2qMBwlQ4ahUgk tpdkpA4aPhh+QmlydGgg HKR9RHj3F3WoGfq2ZPVv aXwiLS1ftADqIRmy Ht5xjZopvIlgZY5kNOYh cewbm445OjIks1jwBUKv zOKyNDgxDKQ3J59wp8E7 OPCaEQStQTP5gLF6 pK6alBevdpqbcFGzkQyq vyYagKlrKPprMClsM997 XDWrpRvpOjJmKZn1N5Xl Qfq1KGQpfVcwIM6r cMNwPPbhKd8ftRpfuJxl YN0oTDFqnzohx413EcTg w7zgHPRlgLDnPEyyHGV2 O95mx2R6TWHlFDGd WIC4uQQ3fF9vwHazafvi bGVmdDsgdmVydGljYWwt JFehI587SESjkQhcQwTf nTk6O1EaLgr1KGBo vEoiOJ7zgCCgYAxzVl5z pMxwoBudLV1kDXEsmvue r858PbEoo2okSISxpELj XTlrEUL4C42av0S9 SXMuVIWtYWY2uUA9lC9z bGlnbjogbGVmdDsgdmVy rPktZXzhNAaiD021BKQd cDsnPlBhdGllbnQg LUipOHc2H3TbRylvfPU+ RU67HRTzDB80gSGoyXIb m5xwlFv5EeDwBVDkTCM5 jYxcFRmwx1TxYKDb R52uhJGvg9U7HRCntVcy jBAyUkLgnGK6fP3dNKum hwsly6ghpkgvBhgww2ph xo95jE13J46zBTxw ZHRoPSIzMCUiIHZhbGln jb4zzJ7fLs8+PGNvbCB3 dYX9cO0mHYQxWoF3YLjo J200RkTefGAoUzrl w2bbc3xflQu5YnU8OAPh anWxgNtdUAG1g4DnXv63 R84nFHylJOTnVALsVMTz IOWskFfcoq1xjT6e Ii8+YRWqwQA3vWX0xZ0d VzRwDsL5JZyoK896JuTc vADgLmbuG67rF3NciLB+ SDEjLrw3QCIkoPqu EZ9mwIChUWgtRz8wPEE5 BbRrGjWoGZbiX7PiRTJr dfqycalcvKF9IEGaFWCz cS80Us1zuUquHDHu nJQVmF7objges7nomfov ZlAeTUJwHLt5FOm6IHAn cXyiMiOkWRI7GzF4VAU6 yURgtD7fyOdjsram qR4qK8CxMNXevsczKe34 bS3pBxGfQzJ1GTyfSfw+ E9FVOeayLU7VE8bKRJcx SzwvdGQ+PHRkIHN0 gWfhRKmgFECrgN7gXKCx X5a8HgEnCcX3AAkhD3Ft BQFtwubfHo37nN0rRdFa IxS4RIwyK4QcgxH8 XNCwkLOuKMcwYDW0U05x v5Z6VVNzSBQzJQR9nSY4 nP7ijVlbucgitOJvxOqz dmVydGljYWwtYWxp F246UFCcsWjdKpPmJdE2 MmZ1LwJ3I4AlFqr9DSEz uNezVV5uuJFmLHpdXg6u vUeflXtxAD1ePUOl gywbXNOpoL7lGNRbhJTf qWtsIY8iVHVbqvzyd483 KcWqLQC7IWJhnAEnE1Su tY7xWnOtPDVbTKIw E0AncVFtMHjpX632RUoj ZdP8JPSepkPjT4HuHBOs fYaaIvD2l5L7Au89KBAY ZWFyczwvdGQ+PHRk KXD5yQktGYmgMSYuxQ6l XAHhG8w8JkHqZyJ5VLqq M1DiABBkeifsZr08bA8t ArYyNoV9ZDauL4De hjZ1HBIssOOfJPdiQNF8 H04ud3A8AQWuOUHjNUS3 xWI4jB8qgOpfiklmwDFt dDsgdmVydGljYWwt HPatU715LNNepQgbHc4S SUC2C5KdOhn2YYTxuTie ZV7opNCqJPufWy8ixLka tYuuVD9tHWVewjvr AFJuoS6pRXJguOEkyEby KJ9qDDHzpktfw074NzWr JNR7KHTppQDbB2AebZ8q AnWyJDMqUHLcT1As uYOvJLbmX398GBmoOnJ7 WYHynqAzS4PqXCVetNdu AhH9l6R8Oo1BYCgckXF+ XO61zf85Y7QyMhpu Upr8GVGeISQ9zTC7uO7h JZLxHRzvv6F6oBD4D4Uf cjJtoo0bx8jpXZPmLOzi D09yzBJay9E7VBRe oRM1GXRvtMjjOhUjhP29 Oyc+NRYgjQzmz0YaKkae f9dto1xciDu9HsElFLMu bcKlaXndNUR6p3Jp Ra24Z02zNNwcHPEcORBa IASiRIVogAxkus7qkT1e Ii8+LDCnhKH1tWU2kY8p LhAiUhF0GFysC006 CbRzjUJjYskep0rvv5ei eZr5IxYzVPUxraWlcAav MBO6b2SxIy73V1LoaSth q0NeIwi1ws05eIVo y0C1qUX5H1LiGYJzonnc pSOlpWwdEX7yQMKimdnw FRCraQ6oGRNbI4h1IcEx YzC6DQyjV0KbpjJ4 MFUjbKVaNYDcuSWDrZ8p yfucx1fzovtaNwGrXXVb MCu4PQa6RRJacKrqSqVf OQB7ZjX2CPZ1jHHv kU2zwFvioyrzcE1fBbk+ MPp4b7xbaOJcUO7ovLE1 MF49LE00kRUfq5Y3xOX7 P6ErXKQwgstvvxjv zHC4WXMnPPWafX66Qp2p hRkkBc5vGOKoPDF5KAJl dPIrD4ZoyS1iQzVeNSRi LLSfJ3NctRDdCQcv K853MJuuAoQ1DOSmdjPn D8JzUADvkRppEqZ3x2Y4 Qk5AZK15JF40QN02lWUn m7J0vDU8P5ClZXGm axqtntfrtDG3NBSkFLLp dX72Xt9gwZrcCf4qFQHh QFK8VQZhaDBhX2SqkD1f PeLsTKIwCOQlD1Pa zGMpHIixA766KUguFuY6 BILthvTqK3PxCGLlnCwq YzC4s3B8Lj5RMt04HX58 QD44mGZlo7O6bWP4 V6UpYFSctnmsxdzdhHH9 NNJrDGIzhS94Hb3aqVsq La7jHSYbWXW8PWEseBCl L0IqeS3gZyBcHMSl VKGeU3JasPUqVAyaB705 POfiBmB6JVCjnrLuT8Ku PYGmcRomQaC1e4K9Yx6R SQbezca2V7KkKfct dHI+WP30VBHcBH73pNAc kKNpl1zgzOk8SiKvBELt QES1fYxaUMafu6TuELZo X55cqSAth5X1FGUf bGx (more content not included)... [facility] Coding Summary HTMLBase 64 GprehirqASn8qPs+PGhl YWQ+PH9PTKNgV87dzSJk nV9tH1FDCWyHYavjLMAM BCzZFoSkdsLaGK7zqCEm ZXJu IC8+KB0nSPDmPdgzkNSe x6Q4nIM6Y12boo2oTAga fVR0YURoMqHaqsogj1yx nHs7ANtxQqzwVcSa XTYtcL73NLH4kE05Jk15 mDNkmOSbn6sbmYk8EuIn RNSkYPK9oVgfPCdut0Qo QMYrH87jkSWlr2J9 IGNvbGxhcHNlOyBlbXB0 xW8hQNizbnxmq3lruegi Urw3ps16bGSfn7U1uFT5 U5CakuP5TWFfmFXt CkkdqIIFqU6xvtotl1tq wamdAbIqVTEvZYg6CMu4 UFPsxTkhCwLsAG20LLI9 BWLsjsBwB5GhIKPk xXdwLzX8b2F6Na9UQ7CE LkaeA4OVQXVBHTqidAV+ FU78ed58Z4EsEvaeLjk0 NBXbQUE9eXQ9eJ3u QJUvSTqgi0I0lAA8J5Gz tbMvic0ni2aoLMJpMKfn M95qmOPiz8W1DUSuwGL9 SBTpsEyoFdWecK96 Oyc+IOGtrRlbl4GiBcwj c2nmk4ygrGd0WsibNHPn trGkgCspVIE0k0YdCx3k GUIycTL2wEH1lH8s OdAkLfI5KKypJ016AiBv yEOcKoyqY37iZ1PcwRS+ ARVnVvr4PSLmzWzyFP0w K1UdMOUbyyfzlWEv jLqbOX8fFFPrinkaSDGs bX0hDPImA7a9BcYgIxO9 JZdlE7WfWDHpilquOo33 lU9wFhNlUaP9BTcq F2CnvgP2XBCwwLLzKUjd ZHX3N49zo6F3NZHgMNXx REZ7jNC0tI5jbSxuoykb bGVmdDsgdmVydGlj FZxsVJwlH402GQKnxMzx PkNvZGluZyBEYXRlOiAg MDMvMjUvMjAyNDwvdGQ+ TRWtSVX8aNjnFBRm uOPfTMcrXd1ylVzqwRfn ZB2xEUAsrafwRRXjdG3c ITRqsXJfhTicSM8mQREy ngvla771YxAjULH6 VASzfDAaQ2VtuK4xJuZu TWJiKSIsV4UpzHNzTLnz F639LTykRcP7IWZlnnUu S0UqUQPplLueLhT2 b6H7Pe3Yn1OcakaiZ7Dj jOCgWxPuXwnuICy1O9Ng PjwvdHI+AP10SAOaRV45 KLt1LJB2hVzqKSrb PUPbN0MqiT3lCjGaDCZx ZGRkOyc+PHRhYmxlIHdp ZHRoPScxMDAlJyBzdHls RI1xLa1qDIQtYBQp uObkkLHpInNkd7lkESKx KPviYC5yiYcmE7UxzSD3 CJXse6m3Sg44D29iN6Lr dXA+YMQppXU9jAD5 hJ5sScSbSuZ9HAnmA586 QmQbrMYlKrxss5npa3xa hYh5DoF6ITYnyjSywZoh OBD8y0GgZl87U08h IHdpZHRoPSIxNSUiIHZh zTtkmj8ygZ4gBa9+PGNv kZF1qSV4pQ5cIhOyAmU3 LGikF256TgQjfVFa Porjp1qup3cyqXk2VjKo ARTnqzQscVhmCJS8n6Xu Ds65U8TkuRhnk9LrYrs7 vy92wTWzc6I4iSF5 Q9XmTGVgsgbckNMltDre HF8uKTCscleeNPLmtX3s DLBqD2t1PhUfCfX0MMqt G9OnpaW6TJTtvOEf LZNspMWFwI8usuzbk9pf jetcDvLiVJKzKTs8LZc4 KSKufVriMcRfVLJ6FcI8 AMW9dVLxgL7wrYqy dbrhzZ8fWqj+VBR4bQLh jJUEVM7uThzfbKW+PHRk EDI8bHgqDYbcLYLahG1s LYGxK2k1ErOuVeY8 JPpjJ3RflmT5HHOkvUMg WLGenBLAzZ2mtrlke5yh ixzrBwChKBZfZJd8MPo3 LWFsaWduOiBsZWZ0 TkB6PQB2mPBlrX7ngSdb uhdyxX5nRog+QmlydGgg ZLK0QQv5D4UoFok6QOXh dMwhDI9cqBJlUNlm Jx5glUobuInhFQ3qRBMt jnpxz529YuTfg5dgUBSf eKCkBOddGXB9F62vk9K3 JFSqBEBqHLD1uKV4 uO5tkYpjpuijgETfgOsl dbLlwSfnWZvuMDycX323 GNZxrHczDwCuVSv9N3Lv Irz9ERKnzNuwEP4e bFRtAFdyGu3rrPdeuAwt ZT0sJFNofnqpt005AoYo n5ypOTZzdDUtXFkpMME7 G41zj9C3BHOlNAYy GBX0wRK4pR5tmMuxysxi bGVmdDsgdmVydGljYWwt COydX201AVJbfFmiZdSo hAl5Z0HuFob8MUBn uJnpKC9ofZDpYCqoAe1l cWkwuQwgYX9mUEZrxgjt i199EzBwd4jwTFDyzJAh NCipZMB5R38ml5Q5 EOOpMTSrZIO9iRK4fV8r bGlnbjogbGVmdDsgdmVy qJxkDKtzJEltA839KKXh cDsnPlBhdGllbnQg BGwkOXh2G1WnBjtnnJW+ ZU26HKTkPI21sKXyyDVl i5yrkKg5MnHaXEEdIYI0 nUerDHlip8TqGYKu O91rsYHgr4J5RDWdxUfh oXBjVgTodHX8lD4bUQcy janbi9nlgaejGlhdb2wa al30lJ64W18dDQgh ZHRoPSIzMCUiIHZhbGln qk4woP1uJo9+PGNvbCB3 wEE5rR9sBNPtEiQ1TKoq S579DzVykBXkNnuq w1xnk7rekOd1WhE8EBRg zcJysYotTLQ2w6CeBk53 L10wXHxjORFnCUZgCAVp GKBfqYrjhy5goK7k Ii8+AJHvnMR9eFG2fB5y AcBhQrZ4IGwiW947WnQh hDDeMgeuK43gL4SfrSB+ OQAdAcs6FMTiqRft HT3ykUMsXMhxOq3cKCS5 UzBbEyTbRFrxC7GhGAOt vrrotznelCW7DGQtNDMx hX40Ue9olMzmFMDu iGRDxR5ybvuml5mllqyj XoFdFTOhTUn5TMm0WWHg hYvwIvLwNWF7OxA0IVS2 mWGvyW7qwXnyfsxz aM9rV5MbLPYcjsdzCb80 aH4xKwIfAbT4ZHsiKns+ H3ZILymiIC2PE6uJRIii SzwvdGQ+PHRkIHN0 vMzqEFisNOUjxU6hJRCg J3d3PsQsAvY4BEusK9Wt VXNshqitPg31tB3zUrSe TcG8BUjpP6EtszD2 VQYqsIRyPGlgWMI9N57p t7V7RSFjKUGtLQA1bDA3 iL1cwNlorpvwuDTaqKyw dmVydGljYWwtYWxp W034RKKrjDvbPrJbPaI5 WoS2OiH1F5DsKjn8LHUm fWmrGX7ioTGlUXuxFq7z tTkszTkkSQ5yBAVi vlvxWRNygX5gPXNlaIBt lAfhJJ6rFUWiyconh366 NbMeTLQ4VXIrpYRgA1Fi qN7uWiDsEGRtJVPm N9ZzkDLvIAyrY315YHgv DcN8QZMsxlWlM8JrQPKz yBymPsK6q4T2Ga83KVVX ZWFyczwvdGQ+PHRk OZG1tKagTQgwKYNdzU4i SSXhP5i7RaFmRaV1OCkp F3WsXLVrmbctLu23eT0i PlVoTcD4FVmaP3Gi qwA5WUTkqNOtLUtzUJC6 Y81tl7E1ACKzFNWgRJC9 iGY3pL0vuOineqdrgXYn dDsgdmVydGljYWwt FCsnD622BFSooEkqWn8E QPW2P4DqYys7DPZtySpe BA3drFXkUOlrYx3baGbs aNvrLZ0gVIYpcqjr CPEtmX0lUIHdfDIbfJle VP5yUGHhavyhe087OvXk WOJ9QMJydHVmO0VzbO2g LlGoNHHmEIAxC3Ey nFOoQZxiQ387ZEpdCxN5 CRYfucIyO8IsSGRxaQzq TeL4v3C2Vg7BITdxuKW+ QR28et28D0ZsCgon Vuc2ZHCiFFK0jQU1xF6x EIEnBFekg2F3iGK8I1Yu yaHido1kp0xoRWEhILfu S05rfXFnv5N1AVCi tAE2PCTstXnqOvYhqG03 Oyc+RDPmeIdom5KgGyjb w4meh0ofbEp9UhPvOYGv paVewYomLGS2i4Rg Hd40B30rHQjtEHKpZWLb PGZkZUEsgGzkln8qoF2x Ii8+RVEqcSA9lKU9hD0u TySvXlI8RGxjQ669 ZrSfxSOvZlhkp8rxx1qi eXx5WsRpDKKitrIjkEqn XRG7n8MrPz34W8PigRyd c5DiCrt0mx14hLPw k0V5xAZ3J5RaXWIkiifv mQThjFbgAY8gSGKwbxxe RLGimO4cAVFkM3i6HhAn OlZ0FOnzQ5LknlA8 WSWebXVfDQDfpIFSjF8w iexpl4rasttwHpTmVMMk OMc4PWe3RWPasGmtTlXc ZPQ5TlZ4KDR3oHKv vA9ebPeucozlbY3kAec+ OSq3l7pvuIKbKM5hiLP7 JO71SZ88bSPzb8C3qKY2 Z0OdHMSltaygbgav cNO3PMWkTTMhjN97Lv5v zJfvLb5oVJCoTRW7ZXOv qEVnK5PgjA4nQmWkOALh XQCtO4VrgNFhTSjd W486PJwwRqH2QKHnuzJn P5TiLHAxnSjsCtB7f0N3 Ch8IKV80RS13WS11cRPh l1Q6wQH6J1CyZDKd zbcwsftlhMX6RAZrJCPz sF83Ab6vuYqyHj9sMUVm VUL2ATBtiPYtR8CztU6t ObHyUUPnWLMvA7Ah hZEyNRmsE066SWtnCfG8 RNVmtpVaV6ZbBHBecDgp VkH2z5L2Zu5OBx53NR70 ZJ82bHMlp8U9oYQ0 M4PaCQEtuhjxujvonGZ1 PPMdSCOmrM26Sd7jxRnh Ue1kXCLtPRZ6GKPneQWf I2AdmS1tTcTtNHXd JVInD4ZjvAFsEWkcG711 LPtmQzK6GZQebzAuS9Ru KQKvjRoeMcZ9v5M2Rz3S GAaiacn4V9ZbOzvm dHI+TT93YMYvFV83zBMs yLYid4bdbDm6ThXhBIEz JXU9tBxtIJqbl0GcTJRz A56bxVDcz9J7UBNe bGx (more content not included)... [facility] Wound Care Noteon 07-29-2023 Wound Care Note [id number]#1. [email or web address] [facility] Coding Summaryon 07-24-2023 Coding Summary HTMLBase 64 GahzfwxpOZh5lWg+PGhl YWQ+TJ2WYHTbX46jtWUt uF7aM8TFJCjJFswbKYNW RSgPMbYucqUoPT8jkUGn ZXJu IC8+FG7wJSZsHptjzLTz d6R5sEW2I59tjh5sCGqo iNK4XAZvWoDcxqmkl4yx jXz0XQvsLhiiLjIr IHRilJ67GAP9zR64Ws33 hOCrbHQqa0pqdXh5WqYs VBOaTZW0zWleYZafe3Ty PXByM19thCShn5N5 IGNvbGxhcHNlOyBlbXB0 iH6vPElowporp6eymyfu Utv6fx65zHNqo3D9tWA3 G7GcrdL8FUVsqNIj OzrzpKCUvG6rwfask6tt bpugHxCjVQSyACp6QIz5 XCAnhNuoJvMqPM48OHL9 ASPnajPnF8TeLYVt eVyxXsU0u3K8Zc8YJ7PI RczoI8FSHNDGLMxceUF+ BD14lq52M9QlIdjnMoi9 AJRkEJP9pDQ5xL8y UPGaPYbmz0A9aUV2Q6Ee hhLhrv5zv2otHLDvKRyi Q69kaXDiu3J7SRQslIG6 LMUayPrzLdQunI68 Oyc+LKGmjOazy4IyAmcl u1cyl4nkuVc7UhjeJOYv klBshTbhSWP9r2PpWk7r STLgsSD1oGS3iL1b EqBeCmI4BWunU111DnZc sMKmKmmhC98sG8ZsiIY+ DEVnPac8JHPrrRayYF9h D8MmSSSruexfgLXu pEdgZO9nDXDgzhhxIYLi pS0bTCPmW0u7AfZrCeI3 KJehS9HfXRPwdeygGb82 bR9mGxEqOiV5UObe S8HyrrL4BHMrgZWpBXvf NBT6U64yn3W3ISXfWXUc YZA3yGM3aD6iwFqeupib bGVmdDsgdmVydGlj WDnjOHrjW887ISIziNxk PkNvZGluZyBEYXRlOiAg MDMvMjAvMjAyNDwvdGQ+ LLRtKZQ7qYhpCNRq rWFbZJylVc9idWexiWfh DU7tQQLbckppKHZwfU1l XXQanEFzcKrwVE2wPKFw bplcl838KxIvDRL6 FFSulEWzK4FpfR0oQjKs ZVMsRJFtJ9UxvOLqHCwf E695JKrmKtU3FWQghkWc G1YtBNBpqSygMeC6 p1J5Hn7Lx0EmyypnG9Ms aEHkRpCaIjleQXe4N2Rd PjwvdHI+OA17MNMoZL76 VXe6DHF5cTptASqj XEFfW4HosU2xNiAoNUNi ZGRkOyc+PHRhYmxlIHdp ZHRoPScxMDAlJyBzdHls OW7uNa7bNSXvCFAw xJecaMTwLfOvk3wjPRPb VPtuQR0vrXtkU9LaiHB8 WIAhn8c0Sl73Y87kH5Wc dXA+SGUitCU8yOH9 fC1qVxLcXsB3PWttX085 WnGpeLYxWqxbg1vzo8zt wUh1BgW5AYRankNmsDnf ZRS0p4MqZu55X82c IHdpZHRoPSIxNSUiIHZh eNbsho9ffT6fVb8+PGNv aSQ7yUW2tM1sQiFvGwI5 HFefH320PbOvgCWg Qffjv2bfv8untBc0BaJs UONtbcMvqVfbFKY2k1Ho Vg86S2IjsOhut0TdNch1 ej70dSCjl1X5zHU3 R1ObEPQclrxfmZIwfOsy MP7qQRMafzpgRVQwsM6m TCFeI8u1ZuYmSxK5QYfc O8ZriqJ5IOBzsHHc CNItaNQNsM6djsycr0tt lhfiBgSrDYFlJRn8OUk9 USRwdNgyBpYwHQN4DzA2 FBB5oDDkbM4edKab xgkxeN9xEvs+YBV7fWCd oEAALE5gLvxmpFN+PHRk WFO2lVsxENdjGEKdqT0q XRXiD8l1VrKiNbY3 JRrpR6RownY5XBEplOLp INAfkLQRaC1vidxkz9qz kojjLmWtPWNvHBq6SXb7 LWFsaWduOiBsZWZ0 ImK0DVH5xCEpfU7oiFba okvduF0aApn+QmlydGgg EZF8BVe0A5JyWoo0WPHl uWvlDA4msVDnKBiz Tr4fcQxvhDsdIJ6tRDZx rhxiy544LwNth6qpPHOd zILfNPxqBHU9N20qw9O0 LWOpZOQiVXU8tSK6 iW1osHywegrphDAevAdb vsZvhVmpUUctWZnxW072 KJNhkVvzVnLpIFk7T4Yi Yyg1CTIwcRbaMC3f kRJpWGzeYm4cvRumvEep CK3lDCAxgxpxp364CfFp x4ldCEMpyXPbNTknQHO8 E10yc8F6IJJbPCDa FPD9vDX9gA3cfLhpblij bGVmdDsgdmVydGljYWwt MXhmB785OWDmxPubLmQh zAx8N2KcSmf5KPUx jGxmND4hhIDrLKxbKt8a bTlbkAbbBM8fOSYvttjz j382VaGcx1dnNWSiyXKd DNzuAJS5P25zu8J5 QFImLNEtTSE0hVR1mN3i bGlnbjogbGVmdDsgdmVy iCilBDmxMQazV902LXMw cDsnPlBhdGllbnQg KLypQYe1Y5QnYyduxZC+ OW90UCDoEK84xLLisUIl i8xhmFx1YmGnJQWrAVE1 eXqfOYrou3JyGDTg N86rxJUoy5M2IDXgwZqm kTAmRzTaqVO6xZ7aWHqr uipyv3upqbdgZsztu4xj ri48oA12F54zJVzb ZHRoPSIzMCUiIHZhbGln ep3rtN5qEe4+PGNvbCB3 lNJ2eW9mKHXqDxF3KTua J083EpJuiFMlGrjk p0vqc8ixfVk5PeG1MAGs obHpgDlhAZE8k2EeUc83 E54oRPanNZNnFXHmHEZz PESlfMtdmd7phK1g Ii8+FGCbsDX9tTZ0iS4k WvZcFiG1OChhT652ErNc hCUfXdttK73cT4FxaWF+ VNKnOtb1VNUxbZtn PZ5puFOmZIfkHq8tVVH7 LdFaVaGuMIgyU0UjWXZj zkjopufqmWQ9LCYtVYNn kP79Sj5srCqhUPBo jGSJuZ8daqljl3hndbmr FmZuPYMqUJb4UUy0SSGg tJfqCvUsGIF7EpY1MGK9 fNOpcT8qkHvwluwh yQ5jA6YkMJVvljflKr30 uK1eWmWyQaL0QSbuFuc+ K8GHCpqlPH3SY0dZJCph SzwvdGQ+PHRkIHN0 aLifTDctJOMovQ3qPEVy J6l8OaSmWwV1MOedM6Oh WJPcfqcgOz86aU5rCeMf SnK0HOocR0IsjzM7 CCEtgPGtCVzqVNN4D43a s8B4XLIqZPZxLCH4wRH5 xZ2cvAmyulurtGHcbNfj dmVydGljYWwtYWxp J345LVNloSzlEhVkUhN2 VmJ6JnF6V6ZmJgw9YIFg xVivEU3nkHEoZHdjNa1i uAtucSgfGT5xFFLx pxzeLUOxfL3sIBFqwIFf pVvsFN0oSPDhuljhm638 AlMjAGJ9ZDMpjAWkQ8Tu lD4hLhJeJRSiUGHe X7GwfPMaAMuiO987ZTpv WcQ0CYYbfyDxY6QtNRVt uOalHyD9o3Y2Kz79FLEZ ZWFyczwvdGQ+PHRk FLX1lLxjWFtaPVOoaC2z BEHoC3l2GcYkWwB8NMsz E9TcRDLgcgryRm35qI2l UwTuBgL0NIhpV6Qk olO0NJJjzYKxHAmkVEH4 E20jn6B6LWFrPXIhBLL7 zWH7cW9tkIxjaupzhSLb dDsgdmVydGljYWwt MWuoY025OGQvqXevOk6X MUQ8N5NxZgf7IBBdmZip BD5yrURyQTzmRx5hsEka jBxaMG3tXAJyalwh MGBtcM1gOFUuiKZguZzr ZN9dNWUcoytku865QkSm RFL9WSJwxWVlE3GtrD0p AjQhDYIdALEtT3Nz nCCsYWovS648OKxhGwG2 FRWumbDlB1CtUYEjuSne QsK7q5U3Fy4FBShasCN+ EB26pj72K4DbCttx Yae6RYXmUJH3sWK0jW4v YNJnLPica1N3jOC6P7Tr jdEysz1ox9tjSJZrHVyv U34isKVkr2X0JXZg kBV0TJFskZbbDxQuhP27 Oyc+XGUlySpho2NcRdhl u7aeb7zitUo9SnJkBYIa suQfoOgrJLJ3s6Xy Ky88J81mVIgsSEJwPEVh RGBeXJExoPmtss2liY2x Ii8+EOVwyRE0eKR6hB3q BoQpTtQ5JGviD394 FlJqjSCnPzkjg9fln4rg lVg4ZuNgDILafiMrxMhr VDG1c0DxZb23V5UypTxf u1SkXki6jo46aHSv v7X3aXU5S4JnKTHqxmin hCVfbNzbBK6oXWDgjpyl HYGwoI8vGRCvD3e3XvTo HzN5PNxdU2YlhoF0 JVKfsVFoSEFjzDYXiQ0z rwqsh7pnbeugByDdOVPk QMb0WNy8UJFgeUomCnTy RVA6IvP6QBP3tOId dU4lzNsnmganbQ3cOpf+ SGo3b5eapZWiQN4oyVT4 SX77RH74tRVrz4X0jMU8 D9WbCWFdepylyegz fPK5GTTqACMgmS03Ym9c vHmbVr1fQVAwOXG5HKXb dTOmI2BfeE0cYePwQEUp VPLwO2MweBTePQtg H226NBpaZuN7SNEsnfSj C5KzZQGjwUjxNkB5o2W9 Jl5NJY80WQ59QF69vNCl n8D0pGI4V9TzZIDs yrmjvmidvPV0NOVfITRo xK90Ct3jiSztBm8yJTNe TKY1KVOiyDScK9MkdU2i HzPtIEAlEIQwU4Ar iAXcYRrtJ986UVncOlC0 YASicyBrZ0XbEFEqpHhm LaV7m4L7Ne7JRi11OR24 BR68iENvz1V0oZU2 G6DlTGGmegggkbaonYQ9 EZQcZTChvC18Ay8xvZty Eu7dATItEWC8XLXpuAFq I6LoyA1wQvUiEIXf UXBqL0NxjBSzUTgqE198 DTdmFnE8PWCeyrFqU2Tw EAMajVoqAcK5c1D1Oy8A NIltnhd3H9AhSacd dHI+ZI75CGZxTX84rFDo eYXfu3dlmXl7UyOdSAXr EVA9tWiqYKltc7WhTULj O17vhHRzm2Y9TJAl bGx (more content not included)... [facility] Wound Care Noteon 07-22-2023 Wound Care Note [id number]# [email or web address] [facility] Coding Summaryon 07-19-2023 Coding Summary HTMLBase 64 DktboaqcAVy8vEz+PGhl YWQ+VY1NDKUmY88ufEAw bD8yI4RLXVkGSbrkVOSN YMxCCyLydyOcGU1edTYc ZXJu IC8+PR7rXSNlPkgzjTSd x1X4oYB7C27apk4iZAtk yXT0KBTcSsQntqeal3kw nNr1DYplXhchVwRk HGDccL35QAC5wU91Rb08 kLCtoVVpd2rasJx6DmCl UPRbUIN7dOlmYFqzb9Qd NOZpC57zzVDbj1Y0 IGNvbGxhcHNlOyBlbXB0 fT2aNGpgqzprc0aoxarb Jza2rb76dNJfz1G9oJV8 Y9RzeeB3OEGjlKMi JvnlkJDPeT6zfaczb6bv syvtFxWwMXUtHQn8YVw2 MOOiyUbmRpKzZT53HHF2 MQWpnkYsE1OnXHGi wKipKlM9l8L2Ie8KB9NX LdisB8FRTTLCUCqtiII+ MR47hu03G4IuEtrqDiv1 AREnZOD1xZH2eR0c ESHvDHkdb2O5yTP0E4Vr pfKmdv3en6daGKMjGYjr T82gaSBur1I0XVHtcDI1 JBKxoJknPeRguT44 Oyc+KBBzsPopw7NwTbuu g7loi1cmeEc2JqlzVYYt skLjuHxlKHW3y4XnXj4m UNBxeDI3sLC9kW4s JhBgQnC3SDfbY818BfSq dNObBfazK31nZ2KqpAE+ UZTmIau0TMGakCpmHS6d F0XgWKDlyzfffMCx sQfnXY9lTPNjtqlcMDDa jJ8rRJFvW1x3BlXfEtV2 RNdfU2VwKUEwgpztAk22 tJ7zHvSjUvR0SPoe T1KqkwQ2GCDkyTBmWUuq IJU7W96ts9R9TESjPIXy BVZ4wNY3yP3gzHgwoaly bGVmdDsgdmVydGlj BHzeMGwrB753QZKbuXbd PkNvZGluZyBEYXRlOiAg MDMvMTUvMjAyNDwvdGQ+ KRWmFBL7sTszWZXb oQKkRMnvPm2wkNdqiXfr JO1vSDAhxsnaUMJbaB6c CZGrcFTwmDgaCH6oCKZr xvreu262PdWjKQU7 ZDRxxGZbB9RnqI6oWxXg TXBfPCCzA2BcsIMtXMto W357URtsHxJ1QDRwlnTi Y6DyYRUwiOnbVcC9 d0R2Ng4Hp5ZyvonhQ2Dl mCOdPuOrOucfUHk0R2Oe PjwvdHI+JP68RZLgGF06 FIr5SFQ0sUiuYCna AAQaA3BfjU6sIeLuNMYd ZGRkOyc+PHRhYmxlIHdp ZHRoPScxMDAlJyBzdHls EN8aKs6vHSGsPZUm rLewzAKqXwJfc6jzRQJh IRafEW3xdQbxR3FztZH0 ISFwa8k2Ui14N66kH6Cq dXA+LSXaxAM0qNQ4 rZ8hJuMmVmL0NUcpA404 BhFymWKqFcqna9wnw2xx zPq5SxN5FNExloRzhFrl JNK0i1RkGt32X11n IHdpZHRoPSIxNSUiIHZh mJhhtb8haU7yYm5+PGNv bNU8zON8eL0cKgNaAbQ7 ZOvjW735BvXlnAOx Ihlep0tur5lfcIg3YgDo CMAnovRoiJsfUNB1e2Vs Jc96V5NrcKvqd3DuMeg8 ko37cYCvi4V6dIL1 J9UcFYCzelgryTZlfDrx ZC5cKGDwkqleSUCpiR5y EFTpP6i7ZbMkCyI8WNdp B7XyxdD0QSTyyURv FXSqaISHhW8scsfaf8sj fidvQkJkTPXdXNa3WXq4 HHQroGduNpSeMZE5XmJ9 ITX1nLEmfB0ygUji mppkyD2uXuy+SLL9pKXq fYWVHT6eSmwfdZH+PHRk QRF0fNfnFFrjAPAjlZ8l DPTgT5x7DpIqOvL6 JHrbE2VcbvN4PFYzmXVi CVSqmSFArY8dfmaud7cf wyakBbAoAEVcPJo9YKx4 LWFsaWduOiBsZWZ0 PsV4QIJ2aAYsmT5xoTgo btzguX3kDts+QmlydGgg DCU6CAc5L4NgMsd3OUZk nYpoBM3xaBYtBSmb It3aeWparWjqAK4bWDMv sppjy465IaKfg0ieEEGh qLWeUCekVGB6R10af7U0 CGMgGBYhGMY6zKT8 aV0gwPoukyzafQWneVlg faSjpUxyALsvHOuwL652 JUTeuIsiBdScYKe4B1Wj Pdd5HEBwgPqxHG7k oTCsTVeiRk6dwXthbVhi QB9tKQPmrzise857JyJy n7shNCLgeTSjACboFUQ1 O27ca8I6AKUxFNSl KXW2lLD3nZ6unEgzlnkp bGVmdDsgdmVydGljYWwt ZXnzB664HFLllQkgMqQu aZb1E1FaNnr3HKJo oOjaCX1vxZBbZEpaMf3r mKfigTiqDI6lDKTprezs w297EyZqi9emTNYrgUIa DOzqXHY4Y27te9N6 PRRvGQZkJIX1fUV5qB8m bGlnbjogbGVmdDsgdmVy rPosTYweBMexL888DIXo cDsnPlBhdGllbnQg GNrdCVh3I1JeDladvEN+ WZ66NDLjZN39aZTjcLXj v6gikUb4GhYgQTAeKUR0 hNolRErok1EvTFUj B21icJEss2X1KTTyiLwb cPTmNvDmsGA0oX1cWGia httwi8dyiguySozzr5ny he39qU74J45tMUna ZHRoPSIzMCUiIHZhbGln ib9dzL5lAr9+PGNvbCB3 zSK1lM9rCHVnMjO5VPuj Y336GcDwcKXuRcte e5lmd1qnxGj9ZsJ2VUFn zaLsrTzhIGG2l6KoDj41 F66xZZhxRYXrACVdAZRi NVCwiKpsas5djF4e Ii8+CFPmoZP6fPY8yB0t ZqVyJxZ2NXccH639YzMo tXGrHrchS51eW0OztJC+ GELaEsb8MVPakNbt EL0qxBDaJUxoOj0sXIM7 FaHxIxDhJCgcI4WjSHAu sqiqbvingVP4RETiQXAp xL43Ee9dtVhqKWEn aCMVpF6imiaad8baowmx TmGxUFXmRDx1ZCm0WJSl uNybMiVtFZM9HyL0SRO2 lEVzoE4yrUxvszdq iS8cW7EjUPPgbavfMv87 lA0rMiVtUoJ6LFngQgk+ B5OZAvdtUZ9RV3uWQQqm SzwvdGQ+PHRkIHN0 nMmwLVxvSLHgeV2gBYVi P8p8GrZiEnW0TXjeP5Iy LECnsspcTx55dV4mKlVg YoV0DPqtH9EgbeQ1 WFLizWJrEBijPXX8Y15y j6E7MDQkQVFsQCV3zYH4 vD8ilEkxopagbOBvfPju dmVydGljYWwtYWxp E214KZRthLrtBwFnDjP8 LeJ5PpK6X8OaDwe4ELJn bIatXJ1tpKWpWTweEk6j hFxenRvjGY6uBLQc wvwgNPCokV7iBHPkfSYi hWufGA4mOWQdwcmcg053 KnHuZQW4ZCSvlVKdE6Ev cZ1bSzUeXPEeZUTp W8CtpRFiYXrjE421GEho GfK1PIZpcwXiY3QhOSSp jUycGyH7f0A3Xo46PJVV ZWFyczwvdGQ+PHRk UYY1zOxhXFkdBRDmkV2o BFTjB5w2QgCaKuH3RRrg H6TvLUDihjzcNc47bA4d UhRxVqE9OLmpW9Rh piD3CVLcbULxJPulYGB7 B38sa5Z8JORuKQBoLAJ5 gYE2xS3eoZjwermhdMNn dDsgdmVydGljYWwt AVrvZ702XXYkpTfhRk8G UIS7E0UzQpv4BUHvuVds HP4hpQQkXBacJa1vlKtz cHoaUH1nVDXrkcbg RHKezO7mKTTelGBzqJcs YN1mPOHxacskh415TuXx GUG0OBSbsJWeF5RuiF2z XtTeQMAxYEPlZ0Kd iEJoQIlzK457HZmqHmQ9 JOIuhuQsY7TiGNBesCrf NsG7c4P1Vw2DKCkbhDU+ WX49zi29F3IiDplr Hzr1XUUjUTX3gDI1kI7i VTWwJKqnh9R1wNA9R4Dw ieYoss8hl9duCRAvBSpw C48niDAor1E3UTZa fHD0RIUcgOtyTvJftV61 Oyc+VRRjqYxia9EdCpjn c4uty0xxsBy7OxHzWRJm xqJrpScaQGX5i5Lh Mr77Z04aGGadNYYlNQAu PZGoQPSbpJxpno4gdM9a Ii8+OYOliWK2fGH1mE0u LxUeTdJ9UIzkV897 RhIxdDVjYfred5igm3vw yFa4TfVeFWPhgtGuzJas BPX3v4KiCa63N0LqxHmv m8NdVvv1mz50sWNb r0P5zWJ3B4RiDBRvzfra aKEbrRzyHS0aZUQbgpjb EXWjpU5rJOXwO1q0VnRt UzX1SVpbR0HeroO4 DFAejRFrFVXuzUHJpV0r joslk8evivkqWtVoAKRk IQy0XQc5PYWleIjjGiWf FII4NzW7AWE4vHOl bB1baIbpsqndsX1wUsh+ XGz3n5vdkFRfJY5jkWD5 BC00PT63eZQtu0A2bVQ1 N0NxKMWnnbapmlow yAQ7UXFzYBRqtW62Wy7i fGtoEv4kFGDsFJG0EBPn cTCiQ5PjvN4gOyDqODHp ZRFvP3KouAAvYTkj I644UOlnBmH2IAQxqjLm V4OvCIHyiVowAfM0o3Z4 Bb6DSX61XY16FH28oCGe d4U6yHT4H9OeUZQu hhplyyoqoAF1MIMvEJFp fT98Sh0mzCohQs7uOAPo BYW8FXCevHNeQ6DrqP2a StNuLIXjAJMxN8Fx rPJnGXnaZ534NXrkRzM9 DURayuNvG9XyUFJirXhn OdO4e1H3Rz4IQq47HB57 NL16yFQer9R2eOK4 M8JoIKVzvyrhekabmIY3 BWRfYBIsrA28Ks7kfMwl Nd7uKHBeWMY4GPOucXYe K7QkgV3gHpCpACTd JYHsG7ZbmPIoIKpmN661 EVdkBeN8OTGowwQdM0Rf THDphWjiPjE9l5U8Cd6I NSqxujh8X3PmScer dHI+XN34XRQdUF11rYQg qNDjb0uzrPh6OlXqLSEa OJN2sMmqWNzkk4FuUVUq E48tkRAzi3S3RPXq bGx (more content not included)... [facility] Coding Summaryon 07-17-2023 Coding Summary HTMLBase 64 OmrpnakkSXk7nXf+PGhl YWQ+VN4CYDEoV69nyNEx dV5iN2FFNNhFKvnfXFOB FMkMEoJjbpMcUS1ugAYl ZXJu IC8+ZV0pDAGaQjsfiOCz o8U5aNG8C67quw8iMKgt aUB5PAGsRqHsszrsn5ir yWb7RUctJghyRvUx TGWxgC62KNI4gJ87Sj96 jSUpiNDce7vrcZm3KsHv ZTBvWJD9xAerXFwns2Ju CSHtN68kcXNxp1W8 IGNvbGxhcHNlOyBlbXB0 uV3lHApgoypyw8vxbfpw Iio8gf44yKFwb3Y9sME1 G2UqzeZ9OILmyDPj YhoomQXUaX6zrxieh2aa ihyjXeWiJDLvBXx7HKf5 MPNupYgaNsTiFK20WRT1 CJUkzsScT9WwDCJo sPepEoT3y9R8Cl1PR0GN NgiiD0HIWJXBMBfvtTI+ ON56of32R0LfVvqcOys1 LDHoPCG8uOC4fS4k LVJwIUbsu3V5cTY8P4Jt uqBbqt2fj6fcZCUmGFwp F22gyBDsf9W6NCLrvNX5 CGIviDgtKlSxmH90 Oyc+NHLmpTqlp6XjXerj z3gyf4llfOl2LguaBBHl oeXogFnzQSX0d9RxNs0f EFHfdAQ7kZZ3xO0c SyEjKeH5VKigO275AqVy tKIeDkbqZ97mD0WpyVR+ OMYgMex1QGSkyTnfJG3o W9QxGRJcefcdeCHs wImxMG6fMVNihfcbYIZp cT8vIQCiX1a8UuZjYrH8 EZamB6JnACYlizfnXp67 bO1pJbMmVhP6HHyk P0VxwgJ0GEEyhBUyZTny PTL9J78yb7S9WJLpVVMk URM9aEF5gN3tzXlgswkq bGVmdDsgdmVydGlj WWzlDMvhF725LKCrnCqs PkNvZGluZyBEYXRlOiAg MDMvMTMvMjAyNDwvdGQ+ NPXfMYC2jKnfQXXq oCGgXGjzWl9fpQqgmUug ZS1pMNHopzvaIVXrxA3w TUWgsBOreOkfPE2dWYKs kzvvg647RnJeQPN6 USMgvFPxW7BujV5xTyKn EDDdAKHcS1PrgEFkPYba Y286KZilAeI4KNAxzcEw C0QqNMPxcBzrChD8 j3S4Bv3Yj8QfhavtS5Ak hMJwDcJzNqmsVRy3M2Us PjwvdHI+WX45XXKbNC48 TBu5HLX7oHokFSen PLEqW0XswH5eToEhXZZc ZGRkOyc+PHRhYmxlIHdp ZHRoPScxMDAlJyBzdHls QW0nCq7kILDeXMPa yLfnuUEaKgZor0emEMWx OJyoWI8rfZnvZ0DpkKM0 CATin6i6Ku30X32mQ7Fr dXA+VFJtrVK0tTF2 pF0mLqTvOrK3HFcpI587 GwMugJFhXjzfp4qng1mz wLn9LiL2ZJWobrMscOfc IGH7b7LjYs09C08d IHdpZHRoPSIxNSUiIHZh rWnuim9cfY7oSj9+PGNv mOU4uGU8xH1pWlSjByV1 VUzcK217UjXxdMEx Ybicq3bzz3kejNj9HyHq FOOyocLvgPexWVK9c7Je Ud32A1IobQnop2WuCti9 xi03iWNla9O8lCU0 Q5AtFLPxxbzwnZRngCxp PA6eLWFlejdzBFWddH3o NJMxP1e0OfMcSaF4RKul N0HdbfD9GHChyCBu FZKsrPNDxI5grkwqp9lk cpkjHrDaXDYtGSl8OMx5 DUWonXqtOrZfTHX5UeY0 IPK3uUScrC6hzIvb ategcW6pGml+QVY9fGTr nCOYDF8yFpiviBC+PHRk BVC5yWiuQYfjUNNxeE0y UTWnM8g1HlWaPvF2 BZbeI0UdddH1QULddMVp GYMfwVEJdS3lbywma4yw xevePgOjDUEdCVr5XBh3 LWFsaWduOiBsZWZ0 TjB5QPI1xYHomM3ulKdd zetkvM0eWmo+QmlydGgg PEG2LUb9F2UxVek9SKYl jVocSO8llFFtIAki Da2hkGdcuBerBM8pIOBo dpxqu289TfJia5fkWKKs mONxPSiwGBL0W15md9I3 ZRMsVOFqQBL9qXB3 aB6upKhcgzfzaIBddSyx ujVsqSuoZGjnXRgnL750 WYKkqLfpPoRrYEu0B9Jm Myf1KFLrfVifAS0z tTFsMJouYy4roNebsGvj XY0cNZXrpsgfq793QtFp y9isOCZmmNQxGTmiUTI4 R00iy8J8JZMhRSZk NXK1lJF2pL6bqOiuareh bGVmdDsgdmVydGljYWwt OBqlW060WRAysDltZpHf vUr9Z4GwQzu5HPFg rDvwBW9syWLuPRqeUu2g tWvxoFnqJE5cARXpkkxf c591IgRrt3kiTCVnuAQh YQukPQZ5S61el2V9 ZASkSSTzJHT3kVL7aC6m bGlnbjogbGVmdDsgdmVy kGiaASjcDYztQ749XLBa cDsnPlBhdGllbnQg KVaqLZd5V2UyDajcoVI+ QG24XKKrBZ51pRYqoNRz b1vloOr3NrDjZWMdDVB4 uVzoXExgo2FhXHRo N05txVErq4Z8TXWgwMsf mJTbPyCfrTM4dY1jLNnx bkebh0jvutitBweov9tr ad58cU82X54nVXqw ZHRoPSIzMCUiIHZhbGln sv5wjB2iQi2+PGNvbCB3 dIU0mP2oHOQjHyL6COfb U611DnMdrSShDpqn p5uih8lgjLk9ZjW6CJCn mtQbvIxqGXJ2k5IdZx99 Y43hOFqlTCTrRVHoXASe XQIdmSzhkh9tfX6k Ii8+NWUvoXW2uSS2kA5u EzLgWsW5DAspB907RsRa jGUyUoeyS39lP6WooSA+ YFYlMvf2AKKueYsw VD1qxEQcZYaaMq1aMED4 QvOzJkPlRLlrO2CfSLCs alpyfvaklAM1TUZiSYKd zP32Db1gfOesIHGo aZUKqA3ioascj2rcwmrl BcLyLRUmOIu4LFf7IPVz uWsiQaDtIXM4OeD9CUY7 mTBjuN9ywHfbxsbd rQ5vT8PpXGKjesctMs39 tW2dFbExAmE2JDtqHoc+ F5PMAvhtEW6VY2gZFHmf SzwvdGQ+PHRkIHN0 rMuxMMrgOXEhqF6xKYVu A0r2CqPfRrA4QQfdW7Cv BLEtymdkEp63iR1dVcIq MqY7WSeqR7OltcJ9 LHYymXCoIGqeUXR0E21f n2I9JMRkPIXiSYQ5oQD9 eV3weShvboyisHQlaWrt dmVydGljYWwtYWxp G903KPCczCmpOlYlZsN9 HnM5RpB9D9GyYvg3BDDh zSorWJ1ptGCfJBneZl5x cFgbaPcnSK8bJGBr zdwvRDHkaZ9iIYLqrDEt sUloSW5oKLBguhtyf750 MvXtRWH4OIHxvDPeH0Yc gG0jRdXyCRIzYGEq Y7TpdPAaJMdwF592HGua IlZ6WCBaqtXyT2VgCUIk wJxbQsC3c0M5La28QSFY ZWFyczwvdGQ+PHRk XYJ0dBdxEBtxXUJlpT5k QROqS9s4HmZvBcB6FRwk W6VtLOPzipzfUl36uZ9a KoCxQoO5YPxzS2Ei ogW1WCDcoJCrWHxmHTU8 I31sv3N1GOJpOVLnESB8 rME0uW5izOvdnbugbBAs dDsgdmVydGljYWwt VUzhB693KIAijPnrZw9K HOV3T7RoTxk3ECGdtAtd JA3fsYLpSMdsPi1aoCat zWthSU2qDJOfbqsz TLPavQ6jOWPpjGSjmVzn DE4qILTekyinh739PuTh ERS9INLyiDMjO1MavM8v VlIvUXNmSGAkL7De rFCcBNolC257FLusAsP8 RHSlnwNwS7TcDKHrxOan OuY5t7Z3Dm4UZAzpiTX+ TU42aj10R5YiWlay Cig8ZJNzDHK6gDI8uI7l PUEvKBrrw4Q9jBQ2X4Pu ngDpfc6za7etBGRaCPgr M92jzHMrz7S6VEPm pFY2JHSxfQvhGcBvhS46 Oyc+KNIuvHxuw9WzMyjc f5pet9xcqSv0ZsJcSHTx ibRnaMdjBMT0n1Ot Bm20N09vARoxSZVqIZXq MMZcEBEabJisnh2spC2i Ii8+EINclFL2rJT3xM3s ZjOgMdZ5ABzjM084 NmWglPVdQvitd9tds5sc tFh3KbQdYVWnerJolXqy PVK0c8MlTo11P3HqfRos k8VcMcy9bb57zIBu b8M1zMV6I4FnBAUbkytt fJDbvGyiQS0gLGUcaqzi MXVelI7sGBKaX4r6GiVo QfP5OWyfW8KfkmR0 HYHahJKhOTNjsRAAxX2t pyiwk5bwmhxrOiEfRRUr UUv7IFp5UORktJlrPaHd JSF5IjQ0CXE9fDDo nF8jqTjymcjagV7gKiv+ QJz7d2unrMWzXT0tgUA8 FS44HS64nQPbm9G4wIU6 V4YmFPLdvuypbwgw sDX2WDMfXGBbuR33Zq4y hTucUt2vSVBoNWS6AHZs iHEpA1AnfH8tEyKqIRJm HMTpW4HfzLTcDMzu K824GCpyNoL8RFQlczKm H5JxSSVnqOgcJbB7a6R7 Fg2UTS50YS98ZN19mWOa i7A6pEN7X1CqAGQm whzyhwxbzMI0QUJtYBKm mZ88Cb6ykLrmPq5fNXAt UUW6SVPyvTLbE5LqeS8y YmJrVLDrNPZbP0Tu gTBvRBtxK613NVvbYfO0 QGSgleJmI2FlRIKyjThq JuO6z5P8Ch4PEq52KZ48 HM80fQPku5H4pXN1 R0XnZTQbafwnjeufkWP5 WMMtQBIpjU82Su1icYse Xd6yEEUeLMI8RSWdoTQs G9QglJ5qFpAlGAHh YEElR2JpeURsZFgpR787 GPnoMvW2VVKeizJsW6Qa MMZosJkxZiT8l6C1Jh3Y BNgrfpi7M4VvEeyj dHI+SW00VAQnRI65xEUb eYOgn2pfaDv7YcOsSELr USA1bUprERfln5EuLZSa V45jrZSlm0B7RRRc bGx (more content not included)... [facility] Coding Summary HTMLBase 64 XsfabonxXSp3mHu+PGhl YWQ+KH9PXCJzM43daKCe jC7hM0VABNpJFxciIZHF LNoBFaMamkRrCC1jxBTi ZXJu IC8+UE8qUAJqHmbsxEMd j5B5jZC9T55axn8wEMjn cGP7AHLaMlMkifszg8tb mJr8BWpsLushJtVd ZBEysO44VFH1jW88Ql11 kQUnfOCwb7nunXh0VpNw THXlYLZ8pHftPXpsm8Rr IUEhP31zxYXaa9S6 IGNvbGxhcHNlOyBlbXB0 yJ5lQJoajbbtu6uvvjpi Phv1wl64hNLuz3N7oVI7 I0OluuP9AVJtfBZx RcxfjIWAcH5rbnaom5wg lpuzSiClUNByUDh8JQm4 CXAzoCupObAaHR34IDY2 TQTaozJkA3GrRIOh dPmlUvZ6n1L3Nd8SH6HF SuutU9RCTFEHBXmpxJL+ CM90fc50E4FgZlllTkl8 QTHzHGK4eEF2lU5o CJPeAKfqr9X9yYE7K8Yt shCmsj2xb6kmGGUhQPiq K80rrKKnw4Q6XOVvqZJ5 IBVxrPqiGpNqvA04 Oyc+WRHbtZoks4DdZzjq d0pxa3whaCe9UhzvWSXe qiAvfSukPFV3u1RgAj9i WABurVQ4iMB4jT2x CgXaIeX7OWjhP218GbTn yQHmGlghG01oP9AmnPK+ BXLrQac0AMYhpEgoCM4k O8OfHLVmwdzwxCOs xJezRS5zCXEjisjvXZZv xS1qEUXlN6a9NrXcSrW1 DGlbG4HqQYUmwunbJj88 kV4lDvIgMhA4BGhg M2WzcfT4TBXtvRNmHOwm WJT7T68cs9S0BBCdCLYr TDB6tJW8dI6faHwxhrzi bGVmdDsgdmVydGlj RRskHFytT742NICcbUel PkNvZGluZyBEYXRlOiAg MDMvMTMvMjAyNDwvdGQ+ MOUiHXK7rDhbVQOc nUSdETqvNz4gyMerwRad IA9oPIMxsgyaLMPrcO1l QVEmoUJqcSxfJW7cJHEg kygoa822BmNpFVO4 PUSruVYlR9JtpY6uUsDz NNOaTCRxV4XllTYsJIgh V131MOeaHkF2DQGtvuPg X8RuVZQnjPysGjP6 r7E8Jn8Im4LasluyW5Hp pRSmYaMyTwmlHUs9O1Tv PjwvdHI+ZU15BKBcAV86 QNb0YUD7pWpuNXcn PVZuD1DzsN5xLeYvPFOb ZGRkOyc+PHRhYmxlIHdp ZHRoPScxMDAlJyBzdHls LH8fRj4uBICkORCx mKfegXDvBlEzu3quLGPc FLvbFQ9zeLluK8ZquSE3 GPObt9j7Qc48F57lR4Fg dXA+HGFvrTU5xYM1 xX5wJoBkHaX9RFdnQ252 CsEsfAUgAbgma5xao1fk vEi8ShU1RLQfqrCyuVts ZFG6l6PkYn75S31n IHdpZHRoPSIxNSUiIHZh eUqgqq8kvV0vGc4+PGNv wJI0eCL9fK8cNyXxScL1 WQboP136VgSshARt Gvhjm5ezi7bzeTi1DrWi GYRzntMacZhsFFE1u4As Sq87C0HvxXorr2NtQji9 yn25qHXzz9Y6oWR1 G3UjMLZiborjnDDwcYmb IW9nNVQnouxwSXLzbI8s IMTzB9p7WtEbElR6KXnx Q9PjyzM3PDAviVBr FDQmgOIOnN8gopnuz7dc dayxEfUoJNXgOYk5PUi4 HWWeaYhuQnStUKS8ToE1 FOJ3zOUnuG3zyOza vfjeqV9bAsh+PMQ5bTFj pIBDKQ9sJetsaGH+PHRk YBW5zRclDLhwEITedM1c QPRkJ5y2RlDjRiJ0 HMozP9XcpbJ3UNOxrEPv IHJzdLUBxL2ygsfmk9oh hxsaAdFbIOKoPBt0LDt0 LWFsaWduOiBsZWZ0 NbF4UCG5uZGizL1siQcf vlsrrO8hHan+QmlydGgg LFI4QOv9K1XgQwa4WBFu aOgxSZ4qpIDhSIrs Qz5vwGaybNcmJR7mSIOa nuwwb506JaVjw2qiZTWw lUMnWNznYAT1T42mn6S8 UIMvKTJuNJS2pTQ3 aX7beBkmpynekVSwjTjx pqEvtCplKKywXRouT189 ZBIrvAauTvSxTOz4K8Th Hlw8XHSzkCseJU2x zIUeJDwxSv9siNvbrQoj IU0nZDHhhijey292JqNm o8xhPYXoyWQwVWsuUFX8 R98nc3B5YDRoJPUd ABQ1kLE8eK7fkJwlzwic bGVmdDsgdmVydGljYWwt FAoqJ754YTCggLbuQvWn cIu7T6MdBau3VPYw gKzaSR4mfLRnDCyoMi3m eHwizEguDD1mHSSsfdzi q200CyGon3xeYNTalHKx QGngAAH6W76ga9F9 HOXtDBCkMXZ9vES4kX8a bGlnbjogbGVmdDsgdmVy cDgtJSpeZVtuG632GQSh cDsnPlBhdGllbnQg IBuuOYx1Z3IqBcawpRT+ JE86EYAaNE31tMHicTQw c1brnGk2MhRqJXRtXUP1 kDusYVjsu5QyTPIw D47mgOWhh4P4ZSChiPmn nBLgJtQmeOF8xW6qCZlo zxaff3jpxlniJyvad7eq ag34mW02A06vOLwn ZHRoPSIzMCUiIHZhbGln nv6esB1gAx2+PGNvbCB3 hXQ6dV6uSSOkUnS0VRrg A130GxBlgNNrApkr p5jgu2ydkPa2WhA3XSFz bmHhfPnmWZQ3z9NbXv84 W83qLGnvUPHqWUYyMJWk BBQlzUheba3jgV6j Ii8+YWIlgVL3nZA3rS1b MhFgNbJ2OCzdS856LoAz lQFkYykdZ35rO3TvdLP+ VIRuXbl9JJHkhNhu OA0jjYAyKRctAa9cAGN4 ObGlKoMqCSieO9RjWYJm gvbqxcmmcRE3DTCsNTIe yE84Zn5suQeaLOJn dJSUkR0uebdxr3vnjlhi JhDgRXJjNVv2QVp1MBUx vXglQmYjFKK7YrC2PSZ1 yDYauF7biHyywmrq qP2kW4XzONUegcizZo32 gD0jOgBkRiX3PWmjTla+ Y1EQMkojLL0XR4kFWDdx SzwvdGQ+PHRkIHN0 pIhfJOjjCZZjiY9fKKWz K6w3QnMdXzW1OQiiB1Bi SJPnlkjbAh24rJ5xCuEq SfI2DQehW7TioaJ4 BHFkxIVuLXnuXMO5H84d k9M6BYLqTKCrZRF3eVP7 bU1keJoyzevamWMgjIgy dmVydGljYWwtYWxp W242DAIgnTwaHbAbZlL5 EhC5UgY5B1HeEhs7DNOd iDlyXM6qiVOyBBmyXv5t zBfhuQllFE3xCJNq ksyyOOEynO3mVDOxrJVj nPlhJC5tNIJgliadw207 TrWhLWN7IVRuyRXiE2Lh lI3yJlArWWJoSHKt I6LpmGUfZIllH802IEuo AsQ1CKPfdjAuQ0DiSGId tSthCbN6f7H6Wy49WVXT ZWFyczwvdGQ+PHRk XXR3rLrsRDgtRPJuxL7v SJKoK2e5RnZlJsO3KVgq L3JgITWovdouNn27iA6x LpJiFuQ0HIscO5Tm wpE3QOLusWJqPUewIIU6 D19ee7E7SAYoQLEsWVS1 eXM0eS0oqJfrbkmynZWf dDsgdmVydGljYWwt PMvpH432QLKfkQhzRf0C TQQ5J2RbBie1SNKhcUha NZ8pjMXvSXnrYt2lgQeg iBewTM8aKWDkatud FXNfiV3kMRQrvZPqaYfq CG7yAAOdljebr082UlSi WFX8BLEbwYQyK2TpzH0n EbAtBNVaBCUwQ3Nm yUSsGFqzD191RGnwKfD1 LFWdtpYjG9AvVXWumIqx McC3k1I1Qa1DZQmpoSI+ ZE02wr34X3LlBrir Vpx1WKVjOQD8fMV3qN4e KZUeEXlcv2I2mPC9G3Nm chDgen1yw3siLRYjCZmz V97yqYYty8B3UNDd mIS0XIQmePirRiLdeP69 Oyc+RBUllQrht2CnSngn m0yck0qsiBz3XePqCYNq nvKveYptFCP8f8Gn Dt97P21xDTybYLUiITZx CZHaDVYutHzbga7mvV0y Ii8+JXYjmWL5xPI4mK0e XsLhZsC1VDbsH362 UoOrrOHdUydhn9ydf7sy fUi4YnPlIXIvufSlgRdq KWL5x4NiHw82P1RoyHsf i6NuDtb3ys13pOUu l1A6bWH2U7LkNDKyilmy mFQqiSejTU5rEIPyustj DFMaxY2sWXSmF9e2FdCa VjB7INddC8TceyP1 CTSnrUYoUMAqhCWHtW6w kftiz5wnisszLhOxZNBq MYy7MPr8YFVutLpmPwQp YBS6InJ7LXC4pJXe yO5dtFwiyyiomI0xPee+ OTs3v0jsaFCkOM3fmOR4 PE68LV11pYDje2P1pLK6 I4HlTDCrkliqwudx kOF0SVNaYQCmgI68Tz7s hGupPy8rKYLzIOJ3XSLu fLHaK5SbgK7xLwAjCJOv HAWqF5PojVAaIKfe R745HUqhSsN4VTPttnYh P1WcHHTzdBroUyA5m1W6 Vy5BAZ76FX86JG41pRJj x7G4uCN3G1BoVAWp wbidbvmtrCM5FAXrUTCo aC96Pa3iwOerUv8wHOPz NNK5JFIawQTkZ4YfxL6m MiHeNNQrMTWoT8Rz sIQuOLeaX626QBinRoV9 INLdgoHpI0MyRODclPxb GrF8w0I5Ma2OYb10AC21 DD53xXMrf9C5tNP5 F6RcLNEmyvcqbcwgqVD0 PZVoJLZxuY99Tj8wmYfx Lj8yYGQdHYR5PUIqtKHs H4MpwD4fTkYfJSIk ZOIyO3VseQIcZWciE361 DDvsMcG8HOCnujNkM8Ag HVWptEijMnX9c5M3Se8K YLjhxxz6K5XbGyix dHI+GT27LVCxOE28zWMd bBOla4vseAj3PiBqKHCc SCE8pNoeFDtbj2UpDYKg G40afLMfe9G5AZHy bGx (more content not included)... [facility] Wound Care Noteon 07-15-2023 Wound Care Note [id number][facility] Consent Forms [id number]#[facility]-10-2023 Outside Records [id number]#1.00OTGTIFF [facility] Coding Summaryon 07-09-2023 Coding Summary HTMLBase 64 XpzamwonPKt3mBi+PGhl YWQ+EC4KAMKzA84hzGGk dE8yE7QGSSmRZuqzHFNT BFbPPrShofOfRV7jhSDd ZXJu IC8+SP6aSFEyQhajzDZh g9A5jRF8N05zzx2jEOjx fQG7SMIoWsMtcpkai5bb qGb7UYedTcddOoJx YUSipW72HFI0qN46Ek16 uRKfyEIak0vciVm9UiZq ECTiYPE8nGjgTLrve8Tp NVSiI68ihVMtb8Z5 IGNvbGxhcHNlOyBlbXB0 zH9gMFjfovpdr6kebhyg Yxp9sv47fFBmj3R2iSC7 O0DzubV3FSWyzFTn WdeeaDNZxE4czxtda3qi vasbUvTwKJGzNQc1LMj3 XQVnfBuzPxPyGU78IRV3 GMGidoBdV9JqHHKp yDuvGhJ3s7Z3Uv5LK1RW RupsA3ZYBGJIAStywAQ+ KE31dv99N2ImRowcPub7 OISuMNG2dFL1tM1h QVJgBQcmk1I2kUF7T0Bj lqMbat6ip9udYBVbOStl E09gwQGic2Y4RYZryVB8 BWBurQvzPmJkxR59 Oyc+UVJofHvbn1MtCwmj m2qlv5wukWl0FgauBCEi dgSujCmoKMX9b6MnSo9m PGPpkRN4xSV2dM5v QaZwHmG2JWdpT257HhKw ySYeXacoD43lO7HbyJD+ HTGyHmr6SNZzyNjjWA7s R6IwIMZovonrwHRa vZviMP1yCQVyoobhAFAv kM6sSXLlV1d1FrBhEaD5 GFueP4ApGYDyegjaKv99 sJ7yRcTlSfH0TTnk V2DsdgT0DSXqhXSfWJlf UFH1X69tl6Z5ZQKwAVMw NIC5hMW2eI9bmYedcluk bGVmdDsgdmVydGlj XYttNNqtH990SBPjbYrw PkNvZGluZyBEYXRlOiAg MDMvMDUvMjAyNDwvdGQ+ ZZOlWMR2mSfnXQTz wICeROpoMm6ewQomeNah FX7qAEOcnqymEQTirV9g VXZlgEXnfJwoTL0pWUBj smwgj531QnMqFRV1 ZMFkfVPiS9RajS3zGjWv VOWdPDGqW1GsaRDiROdg I603DIxvYnB6AVAorgUd B1AhFRPkwNxyNxO4 j1Q3Ks9It3SqcnvyK1Jh jBRhGqAvPkxaKKm5D4Ki PjwvdHI+YX13VEDzHS54 BYa9OOX2oBlxCRsb TOYdO1SqwB3yIqQwNFTl ZGRkOyc+PHRhYmxlIHdp ZHRoPScxMDAlJyBzdHls AI0yIo1fDXKsQDZu uAwqeXNvQcDdv2oqDAUf CDakGA0toDybG0VmvVA7 QPHbv8h1Bp31C04jX4Pn dXA+YPGmtSR0oTR5 jR4rZkDhWwP6ZMakI082 DwPuwCMaScwxy7osq4eg uWp6EfE6RKSeeySvlEod BTD1q0NlPi84O53v IHdpZHRoPSIxNSUiIHZh nJahne0kdG5jRg5+PGNv tZF5xKK1xB6uHmVpMgB5 APxcQ033FzTxkIKy Jhsqy2cpz3vikWc0RnMc VIBxhvSzdWanEQU8v7Pb On70X5LosVcfy1VfLuh7 rd70pFPcg3H2cHO1 S8MmGNUsuivzcAHrnEvm QN9qJKRlsoreNARbpQ7j ECTqG1y8SsGcSeN8HRwb F2EtvhS1OZGxjIFs ARHgcYSGrD2okdmyk0qp uurzYpIhIYGiDHp0ZIm3 VCVngQuxDaEoGUE5NzC2 AJU0oITxtU5foQju qrlgqR0vCos+PTO8iDSq mFVJYW0uSxpjpEN+PHRk ZDS6uUkdNAogFKHoxP3o KSQwR0b7McRnYvQ8 VVmnL6IzpwD6MGMhoRAk JEBszLHQuV4fgouts1ii pclvPkXzMHLgEBe9JZi6 LWFsaWduOiBsZWZ0 HjQ8MWG5fMOcsI0rkLko xzweaP7zUdf+QmlydGgg KTY6QOm6G1RcPll2VINk rPckLH5olIElBQga Mk5bzXzpiGhsQM7aXKGx mzmpl927BaVij4hoXRXy vAXsHSyvAII3O91zj0R0 EUGrQJRcRUL9xTK8 iN9ueUhidaakrRNzuKqa jaBloVsqXPjuOEdyJ918 HWKxsEuhEcKwSQz4Z6Cs Rwl8ZVGzrNayUQ2i kLVxFGwrYj2ldHukaDwv OH3nYCAijihkp996BcRr g6oyWQTenBTvVDvcKTM7 V05ch1I9QKBvJKEj UYF6hLG6jZ9ipSrgfrmc bGVmdDsgdmVydGljYWwt YBfsI543ALTcvLdrKwSw uJx2U1WmMxm5LPRp cMgmZE4ucRRePAmbYs3q qMdpbIrfGU7nKAXfzkky r033RpGoh3wmCNHphEZu ETgeZNK7V41ae2A8 AIEnGSXtUKA2jBH5pB5w bGlnbjogbGVmdDsgdmVy vEfbQFjaPGqfQ438GSEr cDsnPlBhdGllbnQg CCneKBk9F7RmOvkvkZL+ GN89RIUqSZ58gRVxnFNh k3otoRq6TdTcAUUqRCJ7 cMpdNGzip9DhJQCb C51xjICwe6L3QVGvpTsh tJDrHoCgzND1kV9yGWer wwpsa1tijszvXbloa4yn qk90qY30T14kIVvg ZHRoPSIzMCUiIHZhbGln qm6opE6uMr2+PGNvbCB3 iWR9gU3qSYRyCoL2CShg O181IeSjuWUuFbtf u7ddf5zpsNr3WiF2TSEw ftLmqNrtXDN5k6NhAi89 O92xXRwwZBZjHBSsSPIf ZQByhAobjd5odT9j Ii8+JWOpsPX1rNV6fL2d RoQjHlY0RYamM650JyOu pOVsRoujE07bY0HjoIX+ YWWxZeu3VLAmxTmq SY2omNVoSLhjGy4wPJQ1 UwWtOfZqIQhoI0TjLFWw kqbxxolktUQ2TRFcBSXu zH30Rw8mpWcoYLWr iLFHjK6uxfgrn6leuhid MzFrJPSnWLe7XLb8IUWq gQiyHaSrQOE8OpU4DJL5 jLGkaV4ocQuosxvd lH1bC9BiPEKxljwhUv64 mG6wOgFdFuX8DIgyFsg+ K3ZANbdmNN1UE3aBCWlg SzwvdGQ+PHRkIHN0 qEsgEUmzHDBexJ3aSKEt M6f3UlRjKiG2NTocZ2Sn LFHgxgbxXh45gK1vQtQl GxK8YNoaY9DengT4 XHGrvYPvLZbyHCR8R95f t3M5BTHzYIHzPCU3mRP2 bD3crGegqsxsmMAabPjy dmVydGljYWwtYWxp Q981JKIrwHrsFmIgPqL5 CxT9RiG0E0QqHak3GXNl vBfqIV9iePPoQNjuAj3d cBqdjWhoRA6gZRNk fvkuERDpnN0sRBDfaPRl zSurMS1pGSXgbkync168 WvZnTBS6EHZfjQFmA1Fs pJ6vDtYgCXGcXHJo N5ZhdAGoDQudS406BWxw FpJ6VVLguiUaL5NsIFZr yXcsCkE7p9O8Cg21KBLF ZWFyczwvdGQ+PHRk OKY3nBwlFWvkSKUyvV8n FUNvS2v8AaUyJyI6LEoi G7GlOBPiqfhpPy14gK8t SnQbMjY1KRkuK0Bo xhF2DVCweRUlWXrhVRD4 L88zo9X6QLChZHGrXHU2 zUL4wS6ufMxrpykjuMRa dDsgdmVydGljYWwt JJopC341NIOgkYqjRs5G JNM2D2YbCjk7OEThnRfx XP8egCZvWTvdDg5swLer oYtzQX6mXMBmltle CWJfqF2oADJukNSxdGrk JP3tJXQzftwcl836FuAu XLL9QDBaeQJkA3MswU2w CeOhNFRvLLTaU7Vo iVExTKsmN239FSqwTgK3 FPCzmgHiV0LgJAVquKwi LaT8p1E5No5BGWyicQL+ GY85kg29K9EfAlbp Csp8AEYbKSZ3tOL6hE7r KPWyDMlle7K5fDJ8X0Ju wvLoib7rb4hqCBRgDOos K93neFMmf8R2PQNw eCJ5ECEkiAxhKcFukA77 Oyc+BJEcpSnim3FbLjll o3bvr6myrPl0ArRxHIAi djXvlLjwPPN3j1Hi Ov40J05cVHojOSGpCMRi TWVqXYFadTzawr3lxL5p Ii8+VONwbVY0mIJ9oZ9k YbIsNsJ2XPntZ146 NgPjiCOhQkvhq6yup1xa oYe6MoNbVIKujuStbGhh ULR5t0TiTh11K6UklEbi s4JzCym8eq28gSCt p9J9xKH9C4DgBXUojgkk wACzqAwfUZ0lTRRpcide DIYkmY2vRNSoD8g1YhQd IyH7TVnqD5AqlaN9 UMTwbRYgEEBffDNQpX7a skttt0wqupwhDuMrMXPd RDw1YXi7CTEzpPflAoCz XUV9RbP8ZNW2mKAq kV4niYgnwnzjzN1eAks+ HPv1t3vyaRMsBK5woHT2 QT90ZU31qCEae0L4iYK2 J8CsWPSfyfibosdp nPE4EUGaMRJjqI17Wm8p pJigMi9tWHEeNIQ5IUVc cGTlR6JwnX4sStQaQRCr GAKwT3XdeOEiUWuk G245VForKqA5MCJyrqSw V5OpYWIoyJznJlZ4s1N3 Zj7MFJ79LF16ER80ePAk s7B7iYB2J4JqZQQt zmriwjwkeXH8ZPImDSZh uE62Wj1zaSniTt3iOPXu XOM8WWOnwIFfS2MrbJ1n LfAgZVTrQHBmV9Xu qRCuQQmyN917UVqwHqM4 KSMcmvRwP8BgIBOalWha KwN1a2X9Rl8WOn84XL09 FH05zJNxf1P9lUD6 H1NzUZXnthcncrledZL6 RHMvYGUvdG09Ii0aaQnf Hl6sKRYiVNP0FBTjaMHu G4MrmI3cPgPpHMRk TATiC6TjbTDrVJmjS178 JZdiIpQ8NZBqthNgH6Zq JBDumBfmLfB5m6B1Gu8B UMyhtum6B8IhLdsj dHI+JF81FOOrAM62sTBp mXLec2voaCe3DtDqNGOu VGY2bXezKTzbn9JmWCEp T42pbJNcz0Q6FLTq bGx (more content not included)... Normal [facility] Wound Care Noteon 07-08-2023 Wound Care Note [id number]# 1.00OTGTIFF Normal [facility] Wound Cultureon 07-03-2023 Wound Culture rt calf, [...] <=0.5/9.5 Verified Vanc S 2 Verified Normal [facility] Comment on above: Performed By: #### [id number] ####[facility] (DEFAULT)[address] [place] [address] Ambulatory Patient Summaryon 06-26-2023 Ambulatory Patient Summary [address], [address] - Visit Summary For YRN RICARDO Age: 63 years Sex: MALE : 1960 Address: [address] [place], [address] Home: Work: -- Primary Care Provider: LESLY MELCHOR MD Race: White Ethnicity: Not or Language: [place] Health Plan: 1?MEDICARE [facility], 2?MEDICAID [facility], 3?MEDICAID [facility] Reason for Visit: Three month follow [...] the Mental Health & Recovery Board [facility] 26/11 Crisis Hotline -Sahe 4HOPE to 114792. Follow-Up Information With: Address: When: LESLY MELCHOR MD [facility] [address] [place] [address]/ [address] [place] [address] [id number] In 3 months Future Appointments [facility] Appt. Date: 09/25/2023 1:00 PM Scheduled Provider: Lesly Melchor MD [address] [place] [address] [place], [address] Future Orders No future orders Additional Goals [...] Dosin.000 kg Body Mass Index: 50.14 kg/m2 [place] Body Weight Calculated: 84.047 kg BSA Measured: [...] is caused (more content not included)... Normal [facility] Patient Handouton 06-26-2023 Patient Handout Infectious Disease [...] and keep track of them. ? Take onwe-cfy-ftfgndd and prescription medicines only as told by your health care provider. ? If you were prescribed an antibiotic medicine, take or apply it as told by your health care provider. Do not stop (more content not included)... [facility] Outside Recordson 05-15-2023 Outside Records [id number] #1.00OTGTIFF [facility] Device InterrogationOrdered By: Rosalind Murrieta on 05-14-2023 [facility] Radiology Study observation (narrative) [facility] Ambulatory Patient Summaryon 03-26-2023 Ambulatory Patient Summary [address], [address] - Visit Summary For YRN RICARDO Age: 62 years Sex: MALE : 1960 Address: [address] [place], [address] Home: Work: -- Primary Care Provider: LESLY MELCHOR MD Race: White Ethnicity: Not or Language: [place] Health Plan: 1?MEDICARE [facility], 2?MEDICAID [facility], 3?MED[facility] Reason for Visit: [...] alcohol and/or drug addiction problems; contact the [facility] 26/11 Crisis Hotline -Text 4HOPE to 601239. Follow-Up Information With: Address: When: KAREN ZAPATA, LESLY To [facility] [address] [place] [address]/ [address] [place] [id number] In 3 months Future Appointments [facility] Appt. Date: 06/26/2023 9:30 AM Scheduled Provider: Lesly Melchor MD [address] [place] [address] [place], [address] Future Orders No future orders Additional Goals [...] 3 m2 Body Mass Index: 47.09 kg/m2 [place] Body Weight Calculated: 84.047 kg BSA Measured: [...] Body mas (more content not included)... Normal [facility] Patient Handouton 03-26-2023 Patient Handout Nutrition BMI [...] numbers. This can be done either in [place] ([place] or metric measurements. Note that charts and online BMI calculators are available to help you find your BMI quickly and easily without having to do these calculations yourself. To calculate your BMI in [place] ([place] measurements: 1. Measure your weight in [...] for Disease Control and Prevention: www.cdc.gov ? [place] Heart Association: www.heart.org ? National Heart, Lung, and Blood Roff: www.nhlbi.nih.gov Summary ? Body mass index (BMI) is a number that is calculated from a person's weight and height. ? BMI may help estimate how much of a person's weight is composed of fat. BMI can help identify those who may be at higher risk for certain medical problems. ? BMI can be measured using [place] measurements or metric measurements. ? BMI charts are used to identify whether you are underweight, normal weight, overweight, or obese. This information is not intended to replace advice given to you by your health care provider. Make sure you discuss any questions you have with your health care provider. Document Revised: 01/13/2020 Document Reviewed: 11/20/2019 [employer] Patient Education ? 2022 [employer] [facility] Outside Recordson 03-25-2023 Outside Records [id number] [facility]2023 Outside Records [id number] [facility]-13-2023 Outside Records [id number] #[facility] P[facility] Glucose FingerstickOrder ed By: Serafin Shearer on 06-02-2019 Glucose [Mass/Vol] 70 mg/dL Low 75 - 110 mg/dL [employer] [facility] [employer] Phone: Interpretation and review of laboratory results Abnormal [employer] [facility] [employer] Phone: Glucose [Mass/Vol] 74 mg/dL Low 75 - 110 mg/dL [employer] [facility] [employer] Phone: Interpretation and review of laboratory results Abnormal [employer] [facility] [employer] Phone: Glucose [Mass/Vol] 64 mg/dL Low 75 - 110 mg/dL [employer] [facility] [employer] Phone: Interpretation and review of laboratory results Abnormal [employer] Phone: Surgical PathologyOrdered By : Serafin Shearer on 06-02-2019 Surgical Pathology Report [id number] [facility] ANATOMIC PATHOLOGY [address] [place] [address]. [place], [place] [address] SURGICAL PATHOLOGY CONSULTATION Patient Name: YRN RICARDO [facility] Rec: [id number] Path Number: [id number] Collected: 06/01/2019 Received: 06/01/2019 Reported: 06/02/2019 10:13 [...] with no areas of granularity or masses. Director Of Consumer Affairs sections 1cs. tm Microscopic Description Microscopic examination performed. [employer] Phone: POC Glucose FingerstickOrder ed By: Serafin Shearer on 06-01-2019 Glucose [Mass/Vol] 91 mg/dL 75 - 110 mg/dL [employer] [facility] [employer] Phone: Glucose [Mass/Vol] 96 mg/dL 75 - 110 mg/dL [employer] [facility] [employer] Phone: Surgical Pathologyon 020 Surgical Pathology (NOTE) [id number] [facility] ANATOMIC PATHOLOGY [address] [place] [address]. [place], [place] [address] SURGICAL PATHOLOGY CONSULTATION Patient Name: YRN RICARDO [facility] Rec: [id number] Path Number: [id number] Collected: 06/01/2019 Received: 06/01/2019 Reported: 06/02/2019 10:13 [...] with no areas of granularity or masses. Director Of Consumer Affairs sections 1cs. tm Microscopic Description Microscopic examination performed. [facility] Comment on above: Performed By: #### P PPVS #### [address] [address] [place] Fisher: Karl Klein MD Nicotineon 05-23-2019 4-DZ-Zqbfjumy 3 ng/mL [facility] Comment on above: Performed By: #### C SYD PT, BMP #### [facility] Only [place] [address] [place] [address] [place] Fisher: Karl Klein MD #### ANICOT #### [facility] [address] [place] [address] [place] Fisher: Cameron Calderon MD Cotinine 5 ng/mL [facility] Comment on above: Result Comment: (NOT E) Cotinine is the major metabolite of nicotine and is a biomarker of passive exposure when present at low concentrations. This result may reflect passive exposure to a nicotine-containing product. The half-life of cotinine is approximately 16 hours. Cotinine is metabolized to 7-CU-wjgcztmp, which may persist for weeks after cessation from long-term or heavy use of nicotine products. Performed By: #### C SYD PT, BMP #### [facility] Only [place] [address] [place] [address] [place] Fisher: Karl Klein MD #### ANICOT #### [facility] [address] [place] [address] [place] T[place] Fisher: Cameron Calderon MD Nicotine <2 [facility] Comment on above: Result Comment: (NOT E) [...] positive. Test developed and characteristics determined by [employer]. See Compliance Statement B: [employer]/ Performed by [employer], [address] [place] [address] [id number] [email or web address], Cameron Calderon MD, Lab. Director Performed By: #### C SYD PT, BMP #### [facility] [address] [address] [place] Fisher: Karl Klein MD #### RAVIT #### [employer] [address] [place] [address] [place] Fisher: Cameron Calderon MD Basic Metabolic Profon 05-19 (cont.) [facility] Comment on above: Result Comment: Aver age GFR for 50-59 years old: 93 mL/min/1.73sq m Chronic Kidney Disease: <60 mL/min/1.73sq m Kidney failure: <15 mL/min/1.73sq m eGFR calculated using average adult body mass. Additional eGFR calculator available at: http://www.Boqii.Tagasauris/multiple_crcl_2012.htm Performed By: #### C SYD PT, BMP #### [employer] [facility] [address] [place] [address] [place] Troll Fisher: Karl Klein MD #### ANICOT #### [facility] Only [place] [address] [place] [address] [place] T[place] Fisher: Cameron Calderon MD Anion gap [Moles/Vol] 14 mmol/L Normal 9-17 [facility] Comment on above: Performed By: #### C BC, PT, BMP #### [address] [address] [place] Fisher: Karl Klein MD #### ANICOT #### [facility] [address] [place], [place] [id number] [place] T[place] Fisher: Cameron Calderon MD Calcium [Mass/Vol] 9.7 mg/dL Normal 8.6-10.4 [facility] Comment on above: Performed By: #### C BC, PT, BMP #### [address] [id number] [place] T[place] Fisher: Karl Klein MD #### ANICOT #### [facility] [address] [place], [place] [id number] [place] T[place] Fisher: Cameron Calderon MD Chloride [Moles/Vol] 98 mmol/L Normal 98-107 [facility] Comment on above: Performed By: #### C BC, PT, BMP #### [address] [id number] [place] T[place] Fisher: Karl Klein MD #### ANICOT #### [facility] [address] [place], [place] [id number] [place] Troll Fisher: Cameron aClderon MD CO2 [Moles/Vol] 25 mmol/L Normal 20-31 [facility] Comment on above: Performed By: #### C BC, PT, BMP #### [address] [address] [place] Fisher: Karl Klein MD #### ANICOT #### [facility] [address] [place], [place] [id number] Salmon Troll Fisher: Cameron Calderon MD Creatinine [Mass/Vol] 1.28 mg/dL High 0.70-1.20 [facility] Comment on above: Performed By: #### C BC, PT, BMP #### [address] [address] Salmon Troll Fisher: Karl Klein MD #### ANICOT #### [facility] [address], [place] [id number] Salmon Troll Fisher: Cmaeron Calderon MD GFR, Amer >60 Normal >60 [facility] Comment on above: Performed By: #### C SYD, PT, BMP #### [facility] [address] [place] [address] Salmon Troll Fisher: Karl Klein MD #### ANICOT #### [facility] [address] [place] [address] Salmon Troll Fisher: Cameron Calderon MD GFR,non Amer 58 mL/min Low >60 [facility] Comment on above: Performed By: #### Kenrick VELARDE, PT, BMP #### [address] [address] Salmon Troll Fisher: Karl Klein MD #### ANICOT #### [facility] [address] [place] [address] Salmon Troll Fisher: Cameron Calderon MD Glucose [Mass/Vol] 80 mg/dL Normal 70-99 [facility] Comment on above: Performed By: #### Kenrick VELARDE, PT, BMP #### [address] [address] Salmon Troll Fisher: Karl Klein MD #### ANICOT #### [facility] [address] [place] [address] Salmon Troll Fisher: Cameron Calderon MD Potassium [Moles/Vol] 4.6 mmol/L Normal 3.7-5.3 [facility] Comment on above: Performed By: #### C SYD, PT, BMP #### [address] [address] Salmon Troll Fisher: Karl Klein MD #### ANICOT #### [facility] [address] [place], [place] [id number] Salmon Troll Fisher: Caemron Calderon MD Sodium [Moles/Vol] 137 mmol/L Normal 135-144 [facility] Comment on above: Performed By: #### C BC, PT, BMP #### [facility] [address] [place] [address] Salmon Troll Fisher: Karl Klein MD #### ANICOT #### [facility] [address] [place], [place] [id number] Salmon Troll Fisher: Cameron Calderon MD Urea nitrogen [Mass/Vol] 23 mg/dL High -20 [facility] Comment on above: Performed By: #### C BC, PT, BMP #### [facility] [address] [place] [address] Salmon Troll Fisher: Karl Klein MD #### ANICOT #### [facility] [address] [place], [place] [id number] Salmon Troll Fisher: Cameron Calderon MD BUN/CRE Ratio NOT REPORTED Normal -20 [facility] Comment on above: Performed By: #### C BC, PT, BMP #### [address] [address] Salmon Troll Fisher: Karl Klein MD #### ANICOT #### [facility] [address] [place], [place] [id number] Salmon Troll Fisher: Cameron Calderon MD Staging: NOT REPORTED Normal [facility] Comment on above: Performed By: #### C BC, PT, BMP #### [facility] [address] [place] [address] Salmon Troll Fisher: Karl Klein MD #### ANICOT #### [facility] [address] [place], [place] [id number] Salmon Troll Fisher: Cameron Calderon [facility] Erythrocyte distribution width (RBC) [Ratio] 16.0 % High 11.8-14.4 [facility] Comment on above: Performed By: #### C BC, PT, BMP #### [address] [address] Salmon Troll Fisher: Karl Klein MD #### ANICOT #### [facility] [address] [place], [place] [id number] Salmon Troll Fisher: Cameron Calderon MD Hematocrit (Bld) [Volume fraction] 42.0 % Normal 40.7-50.3 [facility] Comment on above: Performed By: #### C BC, PT, BMP #### [address] [id number] Salmon Troll Fisher: Karl Klein MD #### ANICOT #### [facility] [address] [place], [place] [id number] Salmon Troll Fisher: Cameron Calderon MD Hemoglobin (Bld) [Mass/Vol] 13.2 g/dL Normal 13.0-17.0 [facility] Comment on above: Performed By: #### C BC, PT, BMP #### [address] [id number] Salmon Troll Fisher: Karl Klein MD #### ANICOT #### [facility] [address] [place], [place] [id number] Salmon Troll Fisher: Cameron Calderon MD MCH (RBC) [Entitic mass] 28.4 pg Normal 25.2-33.5 [facility] Comment on above: Performed By: #### C BC, PT, BMP #### [address] [address] Salmon Troll Fisher: Karl Klein MD #### ANICOT #### [facility] [address] [place] [address] Salmon Troll Fisher: Cameron Calderon MD MCHC (RBC) [Mass/Vol] 31.4 g/dL Normal 28.4-34.8 [facility] Comment on above: Performed By: #### C BC, PT, BMP #### [address] [id number] Salmon Troll Fisher: Karl Kelin MD #### ANICOT #### [facility] [address] [place] [address] Salmon Troll Fisher: Cameron Calderon MD MCV (RBC) [Entitic vol] 90.3 fL Normal 82.6-102.9 [facility] Comment on above: Performed By: #### C BC, PT, BMP #### [address] [address] Salmon Troll Fisher: Karl Klein MD #### ANICOT #### [address] [id number] Salmon Troll Fisher: Cameron Calderon MD NRBC Automated 0.0 per [address] [facility] Comment on above: Performed By: #### C BC, PT, BMP #### [address] [id number] Salmon Troll Fisher: Karl Klein MD #### ANICOT #### [facility] [address] [place], [place] [id number] Salmon Troll Fisher: Cameron Calderon MD Platelet mean volume (Bld) [Entitic vol] 9.8 fL Normal 8.1-13.5 [facility] Comment on above: Performed By: #### C BC, PT, BMP #### [address] [address] Salmon Troll Fisher: Karl Klein MD #### ANICOT #### [address] [place] [address] Salmon Troll Fisher: Cameron Calderon MD Platelets (Bld) [#/Vol] 199 10*3/uL Normal 138-453 [facility] Comment on above: Performed By: #### C BC, PT, BMP #### [address] [address] Salmon Troll Fisher: Karl Klein MD #### ANICOT #### [facility] [address] [place] [address] Salmon Troll Fisher: Cameron Calderon MD RBC (Bld) [#/Vol] 4.65 10*6/uL Normal 4.21-5.77 [facility] Comment on above: Performed By: #### C BC, PT, BMP #### [address] [id number] Salmon Troll Fisher: Karl Klein MD #### ANICOT #### [facility] [address] [place] [address] Salmon Troll Fisher: Cameron Calderon MD WBC (Bld) [#/Vol] 6.7 10*3/uL Normal 3.5-11.3 [facility] Comment on above: Performed By: #### C BC, PT, BMP #### [place] [address] Salmon Troll Fisher: Karl Klein MD #### ANICOT #### [facility] [address] [place] [address] Salmon Troll Fisher: Cameron Calderon MD PTon 05-19-2019 INR Coag (PPP) [Relative time] 1.1 {INR} Normal [facility] Comment on above: Result Comment: Therapeutic Range: Moderate Anticoagulant Intensity: INR = 2.0-3.0 High Anticoagulant Intensity: INR = 2.5-3.5 Performed By: #### C BC, PT, BMP #### [address] [place] [address] Salmon Troll Fisher: Karl Klein MD #### ANICOT #### [facility] [address] [place] [address] Salmon Troll Fisher: Cameron Calderon MD PT Coag (PPP) [Time] 12.0 s Normal 9.0-12.0 [facility] Comment on above: Performed By: #### C BC, PT, BMP #### [facility] [place] [address] [place] [address] Salmon Troll Fisher: Karl Klein MD #### ANJARETT #### [facility] [address] [place] [address] Salmon Troll Fisher: Cameron Calderon MD XR CHEST (2 VW)on [...] Shawanda Aragon MD 05/19/[address] [facility] XR CHEST STANDARD (2 VW)Orde red By: Serafin Shearer on 05-19-2019 Negative chest. [facility] Work Phone: EXAMINATION: TWO XRAY VIEWS OF THE CHEST 05/19/2019 11:41 am COMPARISON: None. HISTORY: ORDERING SYSTEM PROVIDED HISTORY: preop sleeve gastrectomy Reason for Exam: Preop 06/01/19. no chest complaints Type of Exam: Initial FINDINGS: The lungs are without acute focal process. No effusion or pneumothorax. The cardiomediastinal silhouette is normal. The osseous structures are intact without acute process. [facility] Work Phone: Car, Mhpn Incoming Radiant Results From Apprema/Pacs - 05/19/2019 11:50 AM EST EXAMINATION: TWO [...] intact without acute process. IMPRESSION: Negative chest. [employer] Work Phone: Vital Signs Date Time Vital Sign Value Performing Clinician Emilia henley 05-14-2023 11:28-0500 Body height 190.5 cm Olaf Sheae r CLINICAL SUPPORT TECH-PHYSICAL SCIENCE TEACHER Work Phone: [employer] 05-14-2023 11:28-0500 Body mass index (BMI) [Ratio] 48.25 kg/m2 Olafkathy Zimmermanopher CLINICAL SUPPORT TECH-PHYSICAL SCIENCE TEACHER Work Phone: [employer] 05-14-2023 11:28-0500 Body weight 175.09 kg Olafkathy Caraballoistophe r CLINICAL SUPPORT TECH-PHYSICAL SCIENCE TEACHER Work Phone: [employer] 05-14-2023 11:28-0500 Diastolic blood pressure 80 mm[Hg] Olafkathy Zimmermanopher CLINICAL SUPPORT TECH-PHYSICAL SCIENCE TEACHER Work Phone: [employer] 05-14-2023 11:28-0500 Heart rate 61 /min Olaf Sheae r CLINICAL SUPPORT TECH-PHYSICAL SCIENCE TEACHER Work Phone: [employer] 05-14-2023 11:28-0500 SaO2% (BldA) [Mass fraction] 95 % Olaf Decistopher CLINICAL SUPPORT TECH-PHYSICAL SCIENCE TEACHER Work Phone: [employer] 05-14-2023 11:28-0500 Systolic blood pressure 116 mm[Hg] Olafkathy Zimmermanopher CLINICAL SUPPORT TECH-PHYSICAL SCIENCE TEACHER Work Phone: [employer] 06-02-2019 07:15-0500 Body temperature 99.3 [degF] Serafin Shearer MD Work Phone: [employer] Work Phone: 06-02-2019 07:15-0500 Diastolic blood pressure 59 mm[Hg] Serafin Shearer MD Work Phone: [employer] Work Phone: 06-02-2019 07:15-0500 Heart rate 62 /min Serafin Shearer MD Work Phone: [employer] Work Phone: 06-02-2019 07:15-0500 Respiratory rate 16 /min Serafin Shearer MD Work Phone: [employer] Work Phone: 06-02-2019 07:15-0500 SaO2% (BldA) [Mass fraction] 95 % Serafin Shearer MD Work Phone: [employer] Work Phone: 06-02-2019 07:15-0500 Systolic blood pressure 116 mm[Hg] Serafin Shearer MD Work Phone: [employer] Work Phone: 06-01-2019 09:10-0500 Body height 190.5 cm Serafin Shearer MD Work Phone: [employer] Work Phone: 06-01-2019 09:10-0500 Body mass index (BMI) [Ratio] 53.24 kg/m2 Serafin Shearer MD Work Phone: [employer] Work Phone: 06-01-2019 09:10-0500 Body weight 193.2 kg Serafin Shearer MD Work Phone: [employer] Work Phone: Encounters Encounter Date Encounter Type Care Provider Facility Start: 02-14-2024 End: 02-14-2024 ambulatory LESLY MELCHOR MD Facility:[facility] Start: 02-08-2024 End: 02-09-2024 Emergency department patient visit Yrn Quan Facility:[facility] Start: 01-07-2024 ambulatory Melo Reno acility:[facility] Start: 12-24-2023 End: 12-24-2023 ambulatory LESLY MELCHOR MD Facility:[facility] Start: 12-11-2023 End: 12-11-2023 ambulatory Veda Barnhart Facility:[facility] Start: 11-22-2023 End: 11-22-2023 ambulatory Srinivas R Dolce Facility:[facility] Start: 11-15-2023 End: 11-15-2023 ambulatory Srinivas R Dolce Facility:[facility] Start: 10-25-2023 End: 10-25-2023 ambulatory Srinivas R Dolce Facility:[facility] Start: 10-17-2023 End: 10-17-2023 ambulatory PA Kelley Redmond Facility:[facility] Start: 10-10-2023 End: 10-10-2023 ambulatory PA Kelley Redmond Facility:[facility] Start: 10-04-2023 ambulatory Srinivas R Dolce Facility :[facility] Start: 10-02-2023 ambulatory Srinivas R Dolce Facility :[facility] Start: 09-26-2023 End: 09-26-2023 ambulatory PA Kelley Redmond Facility:[facility] Start: 09-25-2023 End: 09-25-2023 ambulatory LESLY MELCHOR MD Facility:[facility] Start: 09-16-2023 End: 09-16-2023 ambulatory Srinivas R Dolce Facility:[facility] Start: 09-10-2023 End: 09-10-2023 ambulatory PA Kelley Redmond Facility:[facility] Start: 09-02-2023 End: 09-02-2023 ambulatory Srinivas R Dolce Facility:[facility] Start: 08-26-2023 End: 08-26-2023 ambulatory Srinivas R Dolce Facility:[facility] Start: 08-19-2023 End: 08-19-2023 ambulatory Srinivas R Dolce Facility:[facility] Start: 08-15-2023 End: 08-15-2023 ambulatory PA Kelley Redmond Facility:[facility] Start: 08-08-2023 End: 08-08-2023 ambulatory PA Kelley Redmond Facility:[facility] Start: 08-01-2023 End: 08-01-2023 ambulatory PA Kelley Redmond Facility:[facility] Start: 07-26-2023 End: 07-26-2023 ambulatory Srinivas R Dolce Facility:[facility] Start: 07-24-2023 End: 07-24-2023 ambulatory Srinivas R Dolce Facility:[facility] Start: 07-24-2023 End: 07-24-2023 ambulatory Srinivas R Dolce Facility:[facility] Start: 07-19-2023 End: 07-19-2023 ambulatory LESLY MELCHOR MD Facility:[facility] Start: 07-19-2023 End: 07-19-2023 ambulatory Srinivas R Dolce Facility:[facility] Start: 07-15-2023 End: 07-15-2023 ambulatory Srinivas R Dolce Facility:[facility] Start: 07-12-2023 End: 07-12-2023 ambulatory Srinivas R Dolce Facility:[facility] Start: 07-10-2023 End: 07-10-2023 ambulatory Srinivas R Dolce Facility:[facility] Start: 07-05-2023 End: 07-05-2023 ambulatory Srinivas R Dolce Facility:[facility] Start: 07-01-2023 End: 07-01-2023 ambulatory Srinivas R Dolce Facility:[facility] Start: 06-26-2023 End: 06-26-2023 ambulatory LESLY MELCHOR MD Facility:[facility] Start: 05-14-2023 End: 05-14-2023 Office outpatient visit 15 minutes Olaf GOOD Work Phone: [facility] Comment on above: Cardiac pacemaker (P rimary Dx); Morbid obesity with BMI of 40.0-44.9, adult ([facility]); Complete heart block ([facility]) Start: 05-14-2023 End: 05-14-2023 Clinical Support Ppc Pacer [facility] Comment on above: Cardiac pacemaker (P rimary Dx) Start: 03-26-2023 End: 03-26-2023 ambulatory LESLY MELCHOR MD Facility:[facility] Start: 02-10-2021 End: 02-11-2021 [facility] Start: 02-10-2021 End: 02-10-2021 Subsequent hospital visit by physician [facility] Comment on above: History of pulmonary embolism; Hx of deep venous thrombosis Start: 06-01-2019 End: 06-02-2019 Evaluation and management of inpatient SERAFIN SHEARER [facility] Start: 06-01-2019 End: 06-02-2019 Evaluation and management of inpatient Serafin Shearer MD Work Phone: [address] Ortho/Med Surg Comment on above: S/P laparoscopic sle ramon gastrectomy (Primary Dx) Start: 05-19-2019 End: 2019 Patient encounter procedure SERAFIN SHEARER [facility] Start: 05-19-2019 End: 05-21-2019 Subsequent hospital visit by physician Christian [address] [facility] Rad[facility] Comment on above: Arrived Procedures [...] years Vaccine (2 of 2 - PPSV23) [employer] Phone: Start: 12-30-2025 Lipid panel Lipid screen [employer] Phone: Start: 05-14-2024 Adult BMI Screening Adult [facility] ing [facility] Start: 05-14-2024 Tobacco Screening Tobacco [facility]ening [facility] Start: 07-30-2023 Lipid screen Lipid screen [facility] Work Phone: Start: 12-30-2021 Creatinine measurement Creatinine mo nitoring [employer] Phone: Start: 12-30-2021 Potassium monitoring Potassium monit oring [employer] Phone: Start: 12-30-2021 Thyroid stimulating hormone measurement TSH testing [employer] Phone: Start: 08-29-2021 End: 08-29-2021 Patient encounter procedure 08/29/2021 Office Visit Oncology Consuelo Delgadillo MD [address] [place], [place] [id number] [facility] Start: 03-24-2021 End: 03-24-2021 Patient encounter procedure 03/24/2021 Office Visit Pulmonology Teddy Fam MD [address] [id number] [facility] Start: 02-14-2021 End: 02-14-2021 Patient encounter procedure 02/14/2021 Office Visit Bariatrics Mary Lou Power, CLINICAL SUPPORT TECH [address] [place] [id number] [facility] Start: 01-04-2021 Influenza vaccination Flu vaccine (# 1) [facility] [employer] Phone: Start: 05-19-2020 Creatinine monitoring Creatinine mon itoring [facility] [employer] Phone: Start: 05-19-2020 Potassium monitoring Potassium monit oring [facility] [employer] Phone: Start: 07-30-2019 TSH testing TSH testing [facility] [employer] Phone: Start: 06-12-2019 End: 06-12-2019 Patient encounter procedure 06/12/2019 Office Visit Pulmonology Teddy Fam MD [address] [id number] [facility] Start: 06-09-2019 End: 06-09-2019 Patient encounter procedure 06/09/2019 Office Visit Bariatrics Serafin Shearer MD [address] [place] [address] [facility] Min Invasive Bariatric Surg Start: 06-01-2019 End: 06-01-2019 Admission to same day surgery center 06/01/2019 Surgery IP Unit Serafin Shearer MD [address] [place] [address] XI ROBOTIC LAPAROSCOPIC GASTRECTOMY SLEEVE, ENDOSEAL [facility] Comment on above: XI ROBOTIC LAPAROSCO PIC GASTRECTOMY SLEEVE, ENDOSEAL Start: 06-01-2019 Subsequent hospital visit by physician 06/01/2019 Hospital Encounter IP Unit Serafin Shearer MD [address] [place] [address] [facility] Start: 03-06-2019 Annual Wellness Visi t (AWV) Annual Wellness Visit (AWV) [facility] [employer] Phone: Start: 2012 Administration of varicella zoster vaccine Zoster (Shingles) Vaccine (1 of 2) [employer] Start: 2012 Colon cancer screen colonoscopy Colon cancer screen colonoscopy [employer] Phone: Start: 2012 Shingles Vaccine (1 of 2) Shingles Vaccine (1 of 2) [employer] Phone: Start: 2007 Screening for malign ant neoplasm of colon Colon cancer screen colonoscopy [employer] Phone: Start: 1981 DTaP,Tdap and Td Vaccines (1 - Tdap) DTaP,Tdap and Td Vaccines (1 - Tdap) [facility] Start: 1981 DTaP/Tdap/Td vaccine (1 - Tdap) DTaP/Tdap/Td vaccine (1 - Tdap) [employer] Phone: Start: 1980 Adult BMI Follow Up Plan Adult BMI Follow Up Plan [facility] Start: 1977 HIV screen HIV screen [facility] [facility] Work Phone: Start: 1977 HIV screening HIV screen [employer] [facility] Work Phone: Start: 1974 Depression Screening Depression Scre ening [facility] Start: 1973 DTaP/Tdap/Td vaccine (1 - Tdap) DTaP/Tdap/Td vaccine (1 - Tdap) [employer] Phone: Start: 1962 Hepatitis C screen Hepatitis C scree n [employer] Phone: Start: 1962 Hepatitis C screening Hepatitis C sc reen [employer] Phone: Start: 1962 Tobacco Counseling Tobacco Counselin g [facility] Home BIPAP or CPAP Home BIPAP or CPAP Respiratory Care Routine Daily until discontinued starting 06/01/[address] [employer] Phone: Comment on above: Daily until disconti nued starting 06/01/2019 Initiate Oxygen Ther apy Protocol Initiate Oxygen Therapy Protocol Respiratory Care Routine Daily until discontinued starting 06/01/[address] [employer] Phone: Comment on above: Daily until disconti nued starting 06/01/2019 Surgical Pathology Surgical Path ology Lab Routine ONE TIME for 1 Occurrences starting 06/01/[address] [employer] [address] [employer] Phone: Comment on above: ONE TIME for 1 Occur rences starting 06/01/2019 Immunizations Immunization Date Immunization Notes Care Provider Bhavna lynch 12-16-2013 pneumococcal polysaccharide vaccine, 23 [address]v 2 [facility] [employer] Payers Date Payer Category Payer Self-pay 2019 Unknown [place] [employer] D UAL BENEFITS [place] [employer] DUAL xxxxxxxxxxx 2019-Present [address] [place] [id number] xxxxxxxxxxx [id number] 2018 Medicaid [place] [employer] [facility] MEDICAID [id number] 2018-Present [phone] [address] [place] [address] [id number] 2018 Medicaid [id number] 2018 Medicare [place] [facility]IC[facility] MEDICARE [id number] 2018-Present [phone] [address] [place] [address] [id number] 2018 Unknown [id number] 1962 Unknown [id number] 2.16.840.1.046720.3.579.2.175 1962 Unknown [id number] 2.16.840.1.788989.3.579.2.175 1962 Unknown [id number] 2.16.840.1.069522.3.579.2.175 1962 Unknown [id number] 2.16.840.1.968456.3.579.2.176 1962 Unknown [id number] 2.16.840.1.336947.3.579.2.1286 1962 Unknown [id number] 2.16.840.1.564822.3.579.2.1286 1962 Unknown [id number] 2.16.840.1.648993.3.579.2. 1962 Unknown [id number] 2.16.840.1.848922.3.579.2. 1962 Unknown [id number] 2.16.840.1.610868.3.579.2. 1962 Unknown [id number] 2.16.840.1.137784.3.579.2. 1962 Unknown [id number] 2.16.840.1.759893.3.579.2. 1962 Unknown [id number] 2.16.840.1.257188.3.579.2. 1962 Unknown [id number] 2.16.840.1.417931.3.579.2. 1962 Unknown [id number] 2.16.840.1.370921.3.579.2. 1962 Unknown [id number] 2.16.840.1.012501.3.579.2. 1962 Unknown [id number] 2.16.840.1.700404.3.579.2. 1962 Unknown [id number] 2.16.840.1.183530.3.579.2. 1962 Unknown [id number] 2.16.840.1.612944.3.579.2. 1962 Unknown [id number] 2.16.840.1.134526.3.579.2. 1962 Unknown [id number] 2.16.840.1.747417.3.579.2. 1962 Unknown [id number] 2.16.840.1.857918.3.579.2. 1962 Unknown [id number] 2.16.840.1.011467.3.579.2. 1962 Unknown [id number] 2.16.840.1.789036.3.579.2. 1962 Unknown [id number] 2.16.840.1.407126.3.579.2. 1962 Unknown [id number] 2.16.840.1.011210.3.579.2. 1962 Unknown [id number] 2.16.840.1.741783.3.579.2. 1962 Unknown [id number] 2.16.840.1.863177.3.579.2. 1962 Unknown [id number] 2.16.840.1.215084.3.579.2. 1962 Unknown [id number] 2.16.840.1.313632.3.579.2. 1962 Unknown [id number] 2.16.840.1.269529.3.579.2. 1962 Unknown [id number] 2.16.840.1.874531.3.579.2. 1962 Unknown [id number] 2.16.840.1.426814.3.579.2. 1962 Unknown [id number] 2.16.840.1.481048.3.579.2. 1962 Unknown [id number] 2.16.840.1.672811.3.579.2. 1962 Unknown [id number] 2.16.840.1.550580.3.579.2. 1962 Unknown [id number] 2.16.840.1.803009.3.579.2. 1962 Unknown [id number] 2.16.840.1.551078.3.579.2. 1962 Unknown [id number] 2.16.840.1.215466.3.579.2. 1962 Unknown [id number] 2.16.840.1.027329.3.579.2. 1962 Unknown [id number] 2.16.840.1.251343.3.579.2. 1962 Unknown [id number] 2.16.840.1.713026.3.579.2. 1962 Unknown [id number] 2.16.840.1.593704.3.579.2. 1962 Unknown [id number] 2.16.840.1.933694.3.579.2. 1962 Unknown [id number] 2.16.840.1.409263.3.579.2. 1962 Unknown [id number] 2.16.840.1.119128.3.579.2. Unknown [id number] 2.16.840.1.716923.3.579.2.531 Social History Date Type Detail Facility Start: 02-08-2021 End: 04-18-2022 Tobacco smoking status [facility] Never smoker [facility] Start: 02-08-2021 Tobacco use and exposure Former user [employer] Phone: End: 01-17-2021 History of tobacco use Chews Tobacco [employer] Phone: Start: 02-08-2021 End: 05-14-2023 Alcohol intake Ex-drinker (finding) [employer] Phone: Start: 07-25-2018 History SDOH Alcohol Frequency 1 [employer] Work Phone: Start: 1960 Sex Assigned At Not on file M eve [employer] Work Phone: Start: 04-18-2022 Tobacco use and exposure [facility] of smokeless tobacco [facility] Start: 06-16-2020 End: 05-14-2023 History of Social function [facility] Start: 06-16-2020 End: 05-14-2023 [facility] Instability Unknown [facility] Medical Equipment Procedure Code Equipment Code Equipment Origin al Text Equipment Identifier Dates Ld Pcng Ingevity + 52cm Mri - [id number] - [id number] Start: 08-25-2020 Cardiac pacemaker, device (physical object) ([id number]) Pcmkr Accolade Mri Dr Cade - [id number] - [id number] Start: 08-25-2020 Goals Date Patient Goal Desired Activity /State Personal health goal Comment on above: Formatting of this n ote might be different from the original. Evaluation of progress towards goal: home self care Clinical Notes 06-02-2019 to 12-17-2023 [facility] [place] - 05/14/2023 11:30 AM Juanita Hopper MD - 05/14/2023 11:00 AM Starr Sanon RN - 06/02/2019 7:24 AM Serafin Jesus MD - 06/02/2019 6:43 AM EST Note Date & Type Note Facility 12-17-2023 Note Entered by Yousuf Pierce CMA on December 17, 2023 09:09:22 EDT From: Ana Pierce CMA To: [facility] Sent: 12/17/2023 09:09:22 EDT Subject: Medication Management Approved with modifications: Durable Medical Equipment for Prescription (CETIRIZINE 10MG TAB 10 Tablet) TAKE 1 TABLET BY MOUTH EVERY DAY Qty: 30 tab(s) Days Supply: 30 Refills: 10 Substitutions Allowed Route To Pharmacy - [facility] Signed by Ana Pierce CMA --------- From: [facility] To: KAREN ZAPATA, LESLY To MD [...] 10 Substitutions Allowed Notes from Pharmacy: --------- [facility] 11-18-2023 Note Entered by Yousuf Pierce CMA on November 18, 2023 07:43:49 EDT From: Ana Pierce CMA To: [facility] Sent: 11/18/2023 07:43:49 EDT Subject: Medication Management Submitted: Complete:rivaroxaban (Xarelto 20 mg oral tablet) Signed by Ana Pierce CMA 11/18/2023 07:43:00 EDT Approved with modifications: rivaroxaban (XARELTO 20 MG TABLET 20 Tablet) TAKE 1 TABLET BY MOUTH IN THE EVENING WITH MEALS Qty: 30 tab(s) Days Supply: 30 Refills: 10 Substitutions Allowed Route To Pharmacy - [facility] Signed by Ana Pierce CMA Patient matched by Ana Pierce CMA on 11/18/2023 07:43:20 EDT --------- From: [facility] To: KAREN ZAPATA, LESLY To MD Sent: November 15, 2023 5:11:03 PM CDT Subject: Medication Management Due: November 16, 2023 12:10:53 AM CDT On Hold Pending Signature Dispensed Drug: rivaroxaban (Xarelto 20 mg oral tablet), TAKE 1 TABLET BY MOUTH IN THE EVENING WITH MEALS Quantity: 30 tab(s) Days Supply: 30 Refills: 10 Substitutions Allowed Notes from Pharmacy: --------- [facility] 10-17-2023 Note Entered by Yousuf Pierce on October 17, 2023 07:43:22 EDT From: Ana Pierce To: [facility] Sent: 10/17/2023 07:43:22 EDT Subject: Medication Management Submitted: Complete:levothyroxine (levothyroxine 150 mcg (0.15 mg) oral tablet) Signed by Ana Pierce 10/17/2023 07:43:00 EDT Approved with modifications: levothyroxine (LEVOTHYROXINE 150MCG TAB 150 Tablet) TAKE 1 TABLET BY MOUTH ONCE DAILY Qty: 30 tab(s) Days Supply: 30 Refills: 10 Substitutions Allowed Route To Pharmacy - [facility] Signed by Ana Pierce --------- From: [facility] To: KAREN ZAPATA, LESLY To MD Sent: [...] 10 Substitutions Allowed Notes from Pharmacy: --------- [facility] 07-24-2023 Note CLINICAL DATA: Venou s insufficiency [...] Signature): Romulo Wright 07/24/23 10:38 a Technologist: [facility] 07-08-2023 Note Entered by Yousuf Pierce on July 08, 2023 07:59:35 EST From: Ana Pierce [facility] Sent: 07/08/2023 07:59:35 EST Subject: Medication Management Not Approved: now on pulmicort fluticasone (FLUTICASONE PROP HFA 110MCG 110 Aerosol) INHALE 2 PUFFS BY MOUTH TWICE DAILY *RINSE MOUTH AFTER USE* Qty: 12 gm Days Supply: 30 Refills: 10 Substitutions Allowed [facility] Signed by Ana Pierce --------- From: [facility] To: KAREN ZAPATA, LESLY To MD Sent: July 05, 2023 4:32:01 PM DERRICK BOAT LEVER OPERATOR Subject: Medication Management Due: July 06, 2023 12:09:30 AM DERRICK BOAT LEVER OPERATOR On Hold Pending Signature Drug: fluticasone (Flovent [...] 10 Substitutions Allowed Notes from Pharmacy: --------- [facility] 05-28-2023 Note Entered by Yousuf Pierce on May 28, 2023 07:49:21 EST From: Ana Pierce To: [facility] Sent: 05/28/2023 07:49:21 EST Subject: Medication Management Submitted: Complete:oxyBUTYnin (oxybutynin 10 mg/24 hr oral tablet, extended release) Signed by Ana Pierce 05/28/2023 07:49:00 EST Approved with modifications: oxyBUTYnin (OXYBUTYNIN ER 10MG TAB 10 Tablet) TAKE 1 TABLET BY MOUTH DAILY Qty: 30 tab(s) Days Supply: 30 Refills: 10 Substitutions Allowed Route To Pharmacy - [facility] Signed by Ana Pierce --------- From: [facility] To: KAREN ZAPATA, LESLY To MD Sent: May 27, 2023 5:22:40 PM DERRICK BOAT LEVER OPERATOR Subject: Medication Management Due: May 28, 2023 12:05:03 AM DERRICK BOAT LEVER OPERATOR On Hold Pending Signature Drug: oxyBUTYnin (oxybutynin 10 mg/24 hr oral tablet, extended release), 1 tab(s) PO Daily Quantity: 30 tab(s) Days Supply: 0 Refills: 10 Substitutions Allowed Notes from Pharmacy: Dispensed Drug: oxyBUTYnin (oxybutynin 10 mg/24 hr oral tablet, extended release), TAKE 1 TABLET BY MOUTH DAILY Quantity: 30 tab(s) Days Supply: 30 Refills: 10 Substitutions Allowed Notes from Pharmacy: --------- [facility] 05-14-2023 History of Present illness Narrative Yrn Danny Ricardo Date of visit: 05/14/2023 Date of : 1960 Age: 62 y.o. Patient Active Problem List Diagnosis Complete heart block ([facility]) Abnormal stress test Cardiac pacemaker Morbid [...] PE, chronic lymphedema, complete heart block s/p [employer] dual-chamber pacemaker implanted 2020. He is here today for routine evaluation. Patient states he has been doing well since last office visit. He denies chest pain, shortness of breath, palpitations, fatigue. Patient enjoys fishing with his grandson. Past Medical History: Diagnosis Date Anxiety COPD (chronic obstructive pulmonary disease) ([facility]) Depression Hypertension Hypothyroidism Sleep apnea No data recorded No data recorded No data recorded Past Surgical History: Procedure Laterality Date Cardiac catheterization N/A 08/23/2020 Performed by Brian Hilario MD at [facility] Coronary angiogram and left ventricular gram/pressure N/A 08/23/2020 Performed by Brian Hilario MD at [facility] EP - Device-PPM Left 08/25/2020 Performed by Alexander Hopper MD at [facility] (EP) HAND RECONSTRUCTION Left SLEEVE GASTROPLASTY 05/2019 [...] Morbid obesity with BMI of 40.0-44.9, adult ([facility]) 3. Complete heart block ([facility]) Intermittent complete heart block s/p [employer] dual-chamber pacemaker implanted 2020 Device check [...] MELCHOR MD Referring Physician: Lesly Melchor MD [address] [place] [address] LATISHA Harman 05/14/23 1202 documented in this encounter [facility] 05-14-2023 History of Present illness Narrative I agree with the findings in the scanned document. documented in this encounter [facility] 06-02-2019 History of Present illness [...] NICHOLS 1:03 PM documented in this encounter [employer] Phone: Evaluation note Diagnosis History of pulmonary embolism Personal history of pulmonary embolism Hx of deep venous thrombosis Personal history of venous thrombosis and embolism documented in this encounter [employer] Phone: evaluation note* Diagnosis S/P laparoscopic sleeve gastrectomy- Primary documented in this encounter [employer] Phone: evaluation note* Diagnosis Cardiac pacemaker- Primary Cardiac pacemaker in situ Morbid obesity with BMI of 40.0-44.9, adult ([facility]) Complete heart block ([facility]) Atrioventricular block, complete documented in this encounter [employer] System[employer] note* Diagnosis Cardiac pacemaker- Primary Cardiac pacemaker in situ [facility] Instructions* Stewart Golden DO - 06/02/2019 Discharge Instructions for Bariatric Surgery You had a Laparoscopic Sleeve Gastrectomy (86349) to treat obesity. Recovery from this surgery [...] scheduled appointment, please call the office at [phone]. Call Your Doctor If Any of the [...] sent through Care Everywhere. * Enoxaparin (Lovenox) ([place]i) * enoxaparin ([place]i) [facility] Phone: InstructionsNot on filedocumented in this encounter [facility] filedocumented in this encounter [facility] Summary Purpose Family History No Family History Records FoundNo Family History Records FoundNo Family History Records FoundNo Family History Records FoundNo Family History Records Found Advance Directives No Advanced Directives Records FoundDocuments on File Type Date Recorded Patient Director Of Consumer Affairs Expl anation ACP-Advance Directive ACP-Power of Truck Service Manager Latest Code Status on File Code Status Date Activated Date Inactivated Comments Full Code 06/01/2019 12:33 PM 06/02/2019 3:05 PM Documents on File Type Date Recorded Patient Director Of Consumer Affairs Expl anation Advance Directives and Living Will Power of Truck Service Manager Documents on File Type Date Recorded Patient Director Of Consumer Affairs Expl anation Advance Directives and Living Will Power of Truck Service Manager Latest Code Status on File Code Status Date Activated Date Inactivated Comments Full Code 06/01/2019 12:33 PM Reason for Referral Status Reason Specialty Diagnoses / Procedures Referred By Contact Referred To Contact Pending Review Radiology Diagnoses History of pulmonary embolism Hx of deep venous thrombosis Procedures VL DUP LOWER EXTREMITY VENOUS BILATERAL Consuelo Delgadillo MD [address] [place] [address] Specialty Diagnoses / Procedures Referred By Contac t Referred To Contact Diagnoses Cardiac pacemaker Procedures Device Interrogation Olaf Cain, CLINICAL SUPPORT TECH-PHYSICAL SCIENCE TEACHER [address] [place] [address] Referral ID Status Reason Start Date Expiration Date V isits Requested Visits Authorized [id number] Pending Review 05/14/2023 05/13/2024 1 1 Additional Source Comments (unrecognized sect ion and content) No Status Records FoundNo Status Records FoundNo Status Records FoundNo Status Records FoundNo Status Records Found INFORMATION SOURCE (unrecogn ized section and content) DATE CREATED AUTHOR 07/14/2019 [facility] DATE CREATED AUTHOR AUTHOR'S ORGANIZ ATION 02/11/2021 [facility] DATE CREATED AUTHOR AUTHOR'S ORGANIZ ATION 05/19/2023 [facility] DATE CREATED AUTHOR AUTHOR'S ORGANIZ ATION 01/07/2024 [facility] DATE CREATED AUTHOR AUTHOR'S ORGANIZ ATION 02/15/2024 [facility] Reason for Visit (unrecogniz ed section and content) Status Reason Specialty Diagnoses / Procedures Referred By Contact Referred To Contact Pending Review Radiology Diagnoses History of pulmonary embolism Hx of deep venous thrombosis Procedures VL DUP LOWER EXTREMITY VENOUS BILATERAL Consuelo Delgadillo MD [address] [place] [address] Status Reason Specialty Diagnoses / Procedures Referre d By Contact Referred To Contact Diagnoses Obesity OBESITY, HYPERTENSION, COPD, HYPOTHYROIDISM, LIPODEMIA Procedures MT LAP, DHARMESH RESTRICT PROC, LONGITUDINAL GASTRECTOMY XI ROBOTIC LAPAROSCOPIC GASTRECTOMY SLEEVE, ENDOSEAL Serafin Shearer MD [address] [place] [address] [facility] Reason Comments Device Check Reason Comments Device Check Care Teams (unrecognized sec tion and content) 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 [facility]. provides no warranty or guarantee of the accuracy or completeness of information in this document.
[2024-02-21 12:40] VITALS: BP 114/60; PULSE 80; O2SAT 99
== END 2024-02-21 12:32 | disposition home or self-care (01) ==
LOC: VC 12:31
PROVIDERS: PCP Radiology Diagnostic Radiology; Visit Provider Radiology Diagnostic Radiology
DX: I83.813 Varicose veins of bilateral lower extremities with pain (principal)
CPT/HCPCS: 36466

== ENCOUNTER 2024-02-28 11:50 | Outpatient (OUT) | payer MEDICARE, MEDICAID, SELFPAY ==
--- NOTE | 2024-02-28 | VEIN_ITS ---
Patient Name: YRN RICARDO MR#: [id number] : 1960 Exam Date: 02/28/2024 Ordering Doctor: DR LEONID SCOTT M.D. RADIOLOGY REPORT PROCEDURE: VC EXT VENOUS LT LIMITED COMPARISON: VC EXT VENOUS LT LIMITED, 01/09/2024. INDICATIONS: I80.02 Phlebitis of superficial veins of lt lower extremity TECHNIQUE: Lower extremity nuñez scale and Duplex Doppler evaluation of the deep venous system from the inguinal ligament through the calf veins. FINDINGS: REGION: Left lower extremity. THROMBI: Negative for DVT. Chemically induced thrombus in varicose veins in lower leg. COMPRESSIBILITY: Non-compressible segments corresponding to thrombus FLOW: Areas of no flow corresponding to thrombus OTHER: Multiple patent varicose veins remain. Largest is proximal medial lower leg and measures 5.5 mm. CONCLUSION: 1. Ablation of multiple treated branch saphenous varicosities within the left leg. Additional varicosities in need of treatment remain. Dictated by: Herman Patiño M.D. on 02/28/2024 at 12:25 Approved by: Herman Patiño M.D. on 02/28/2024 at 12:25
--- NOTE | 2024-02-28 07:40 | V.VEINS.HP ---
Vital Signs 02/28/24 12:10 Height 6 ft 3 in Weight 175 kg BMI 48.2 Varicose Veins Patient in today for follow up ultrasound of left lower extremity following treatment of Varithena/microfoam completed on 02/21/24. Herman Chaves MD personally performed the services described in this documentation, as scribed by Grecia Nielsen RDMS in my presence and it is both accurate and complete. Grecia Chaves RDMS, am scribing for, and in the presence of, Dr. Brooks Patiño and in the presence of the patient. medial thigh: bilateral, knee: bilateral, calf: bilateral, ankle: bilateral and munoz: bilateral burning and sharp 6 11 years Worsened in recent months: Yes standing and sitting bed rest, elevating extremities and compression stockings Reports heaviness, edema and leg edema History of lower extremity trauma: No Superficial thrombophlebitis: No Family history of varicose veins: unknown Has patient had previous lower extremity venous surgery: No Patient has previously received the following treatment(s) for lower extremity varicose veins: Reports none Does patient have a history of : not applicable Does patient intend to have future pregnancies: not applicable Has patient had lower extremity venous scan with relux testing: Yes Support hose used: Yes Problems walking or doing physical activity: Yes 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 Grecia Chaves RDMS, am scribing for, and in the presence of, Dr. Brooks Patiño and in the presence of the patient. Status of ROS 10 or more systems reviewed and unremarkable except as noted in history and below Cardiovascular Reports: edema and swelling of feet/ankles Musculoskeletal Reports: extremity pain and extremity swelling Integumentary/Breast Reports: redness, non-healing lesion and changes in skin [facility] History (Updated 02/28/24 @ 07:41 by Grecia Nielsen) Phlebitis and thrombophlebitis of superficial vessels of left lower extremity ?I80.02 - Phlebitis and thrombophlebitis of superficial vessels of left lower extremity (ICD-10) Thrombophlebitis of superficial veins of left lower extremity ?I80.02 - Phlebitis and thrombophlebitis of superficial vessels of left lower extremity (ICD-10) Phlebitis and thrombophlebitis of superficial vessels of lower extremities, bilateral ?I80.03 - Phlebitis and thrombophlebitis of superficial vessels of lower extremities, bilateral (ICD-10) Phlebitis and thrombophlebitis of superficial vessels of right lower extremity ?I80.01 - Phlebitis and thrombophlebitis of superficial vessels of right lower extremity (ICD-10) Non-healing lumpectomy wound ?T81.89XA - Other complications of procedures, not elsewhere classified, initial encounter (ICD-10) Other reconstructive surgery as the cause of abnormal reaction of the patient, or of later complication, without mention of misadventure at the time of the procedure ?Y83.4 - Other reconstructive surgery as the cause of abnormal reaction of the patient, or of later complication, without mention of misadventure at the time of the procedure (ICD-10) Cubital tunnel syndrome ?G56.20 - Lesion of ulnar nerve, unspecified upper limb (ICD-10) Pacemaker ?Z95.0 - Presence of cardiac pacemaker (ICD-10) Obesity ?E66.9 - Obesity, unspecified (ICD-10) Hypothyroidism ?E03.9 - Hypothyroidism, unspecified (ICD-10) Osteoarthritis ?M19.90 - Unspecified osteoarthritis, unspecified site (ICD-10) DVT (deep venous thrombosis) ?I82.409 - Acute embolism and thrombosis of unspecified deep veins of unspecified lower extremity (ICD-10) Arrhythmia ?I49.9 - Cardiac arrhythmia, unspecified (ICD-10) PVD (peripheral vascular disease) ?I73.9 - Peripheral vascular disease, unspecified (ICD-10) COPD (chronic obstructive pulmonary disease) ?J44.9 - Chronic obstructive pulmonary disease, unspecified (ICD-10) Asthma ?J45.909 - Unspecified asthma, uncomplicated (ICD-10) Lymphedema ?I89.0 - Lymphedema, not elsewhere classified (ICD-10) Venous insufficiency ?I87.2 - Venous insufficiency (chronic) (peripheral) (ICD-10) Varicose veins of bilateral lower extremities with pain ?I83.813 - Varicose veins of bilateral lower extremities with pain (ICD-10) Surgical History (Updated 02/21/24 @ 13:27 by Wild Slade) S/P sclerotherapy of varicose veins ?Z98.890 - Other specified postprocedural states (ICD-10) ?Z86.79 - Personal history of other diseases of the circulatory system (ICD-10) S/P sclerotherapy of varicose veins ?Z98.890 - Other specified postprocedural states (ICD-10) ?Z86.79 - Personal history of other diseases of the circulatory system (ICD-10) S/P sclerotherapy of varicose veins ?Z98.890 - Other specified postprocedural states (ICD-10) ?Z86.79 - Personal history of other diseases of the circulatory system (ICD-10) Status post ablation of incompetent vein using laser ?Z98.890 - Other specified postprocedural states (ICD-10) H/O gastric sleeve ?Z90.3 - Acquired absence of stomach [part of] (ICD-10) Family History (Updated 11/06/23 @ 09:08 by Estefania Dhaliwal) Other Family history not known due to adoption Social History (Updated 11/06/23 @ 09:09 by Estefania Dhaliwal) Within the past year, how often did you have a drink containing alcohol: never Score interpretation: A score less than 4 is consistent with normal alcohol consumption. Smoking status: Never smoker Non-prescribed substance use: denies use Meds Home Medications and Allergies Home Medications ?Medication ?Instructions ?Recorded ?Confirmed ?Type albuterol sulfate 90 mcg/actuation 1 inh inhalation Q6H 11/06/23 11/06/23 History aerosol inhaler aripiprazole 20 mg tablet (Abilify) 20 mg PO DAILY 11/06/23 11/06/23 History cetirizine 10 mg capsule 10 mg PO DAILY PRN angioedema 11/06/23 11/06/23 History citalopram 20 mg tablet (Celexa) 10 mg PO DAILY 11/06/23 11/06/23 History fluticasone propionate 110 1 inh inhalation BID 11/06/23 11/06/23 History mcg/actuation HFA aerosol inhaler levothyroxine 150 mcg tablet 75 mcg PO DAILY 11/06/23 11/06/23 History (Euthyrox) lorazepam 0.5 mg tablet (Ativan) 0.5 mg PO DAILY 11/06/23 11/06/23 History oxybutynin chloride 10 mg 10 mg PO DAILY 11/06/23 11/06/23 History tablet,extended release 24 hr oxycodone-acetaminophen 5 mg-325 1 tab PO DAILY 11/06/23 11/06/23 History mg tablet (Endocet) rivaroxaban 20 mg tablet (Xarelto) 20 mg PO DAILY 11/06/23 11/06/23 History trazodone 100 mg tablet 50 mg PO DAILY 11/06/23 11/06/23 History zolpidem 5 mg tablet (Ambien) 11/06/23 History Allergies Allergy/AdvReac Type Severity Reaction Status Date / Time No Known Drug Allergies Allergy Verified 10/04/23 14:35 Exam Narrative Exam Narrative: Herman Chaves MD personally performed the services described in this documentation, as scribed by Grecia Nielsen RDMS in my presence and it is both accurate and complete. Grecia Chaves RDMS, am scribing for, and in the presence of, Dr. Brooks Patiño and in the presence of the patient. Constitutional Documenting provider has reviewed patient's vital signs: yes Common normals: oriented x3 Lymph Lymphatic: no lymphedema noted Cardio Common normals: regular rate Rate: regular rate Peripheral pulses: posterior tibial pulses present and dorsalis pedis pulses present Extremity Common normals: normal capillary refill General: edema Right lower extremity: upper leg and lower leg Left lower extremity: upper leg and lower leg Neuro Common normals: oriented x3 Results Imaging Venous US: Radiologist's impression: Chemically induced thrombus in multiple varicose veins in left leg. Herman Chaves MD personally performed the services described in this documentation, as scribed by Grecia Nielsen RDMS in my presence and it is both accurate and complete. Grecia Chaves RDMS, am scribing for, and in the presence of, Dr. Brooks Patiño and in the presence of the patient. Assessment and Plan Assessment and Plan (1) Phlebitis and thrombophlebitis of superficial vessels of left lower extremity: Plan Plan is for patient to return for Varithena/microfoam of right leg on 03/12/24. IHerman MD personally performed the services described in this documentation, as scribed by Grecia Nielsen RDMS in my presence and it is both accurate and complete. I, Grecia Nielsen RDMS, am scribing for, and in the presence of, Dr. Brooks Patiño and in the presence of the patient.
--- OUTSIDE RECORDS SUMMARY | 2024-02-28 11:55 | XMS_ITS | CCD ---
Author Organization [facility] Inform ion Partnership [facility] Care Team Providers Care Hedge Fund Trader Name Role Phone SERAFIN SHEARER Referring Unavailable LESLY MELCHOR Primary Care Unavailable SERAFIN SHEARER Referring Unavailable LESLY MELCHOR Primary Care Unavailable SERAFIN SHEARER Admitting Unavailable SERAFIN SHEARER Attending Unavailable LESLY MELCHOR Primary Care Unavailable Lesly Melchor Primary Care Provider CONSUELO DELGADILLO Referring Unavailable LESLY MELCHOR Primary Care Unavailable Lesly Melchor Primary Care Provider Lesly Melchor MD Primary Care Provider [phone] LESLY MELCHOR Referring Unavailable LESLY MELCHOR Primary Care Unavailable OLAF CAIN Attending Unavailab LESLY Concepcion Referring Unavailable LESLY MELCHOR Primary Care Unavailable Melo Quiñones Attending Unavailab Melo Frederick Admitting Unavailab Lesly Concepcion Primary Care Unavailable PETER [...] KAREN ZAPATA, LESLY To Primary Care Unavailable Luis F Barnharti Attending Unavailable Obey Shengyi Admitting Unavailable KAREN ZAPATA, LESLY To Primary [...] KAREN ZAPAAT, LESLY To Primary Care Unavailable Dolce, Srinivas [...] Quan Attending Unavailable Yrn Quan Admitting Unavailable LESLY MELCHOR MD Primary Care [...] Propensity to adverse reactions to drug (disorder) [facility] Repository Medications Current Medications Medication [...] hours as needed for pain. 0 Active [id number] 200 actuat albuterol 0.09 mg/actuat metered dose [...] aftercare (1 source) Drug therapy finding; Translations: [correction (current) use of anticoagulants] Onset: 9 12-03-2018 [...] Coding Summaryon 12-25-2023 Coding Summary HTMLBase 64 GoscmifbWJj6qOz+PGhl YWQ+HM7WZOKgK18xjEMc iG0hL7FXSBgTWsjyXACF WYcHOhNtdxXtHZ8fnHKe ZXJu IC8+EI8sAQNvGyjgoYFa u2N7zBZ9D31xvl9dHVpt wSO7AIQlFuRizgnag6al xNc7RGheAkowCaBq GHMwtQ23NPT7vT56Xu14 iRDbcILmo3bdiUb1IqVm FRJrQXL0vBvyPBcfr9Ne DXZgO70rjDOio6A2 IGNvbGxhcHNlOyBlbXB0 zY4hFYgfhhmzv3qnslvj Ked1wx34sKPpt3M3uNQ4 Q4ByfnQ3AIEseSWq FhjyxHLByB6vuorte5sx cxogYdFePAMcFUl5ANk4 QXWduGrqTpYbIH49UVT8 ZTPtazRxV2GiSPSi hKdlQzD1a6X3Ro3LZ3PB KgblY1WVWQLNHWcnpMJ+ AU37ka59K6MtPpgwAkk4 GQBvRQZ6xKW2iQ6e KFLqFPptz7L1bOI7W6Ew hxSano3lu0tiCOMzJOpg U23xxBArq9Y4RMWnsPW1 NQSzpSafToSnrY49 Oyc+KHRyaXbkh3CvWarh f5vcw6qngIi8XzmlKBAc vmUhbFzcVSV2h3QsJq2c HICuqVL7nWI6zV2q SvCzOpB3SEdgI351IyWr sSOgIpurD45sQ9BpgYN+ BHUhLel3ETBzkFoiFO1b B8AnEHAivehapQAl dPemIM4sSSWwgslaADHc vS7kWNDhH6h9XnBgZwS5 AVsqY4LtGZEzisvuZg13 oR7nUhRoYnG4SHqf P6HztqG9BBYvxIAjOFmw GDX2R69sf3F9MFHvWVHp RDB0aQR4pF3itEilvede bGVmdDsgdmVydGlj EGljWFqjK886FZIusXqo PkNvZGluZyBEYXRlOiAg MDgvMjEvMjAyNDwvdGQ+ NAWvIYJ2lWnzFFNd bDYyZQqrVf7jnAhjwTak PI2kNQVelgpaYXLhrR2e PSGwwKFinXnpZY0kOLTp hehyc714XhGjBEE2 SOVfbXTcE1UdhX1lQpXj ADYxCVMoV6AqaMCnYSzx G663KIysMpJ9JZUlebQz F8KtUBZgiKgpEtT8 c3A1Ss9Gb8CoybhoQ1Ad pFNrGqMeDzsyEFo3U8Rh PjwvdHI+EB59FLGoUK04 XIf6ODN1mFpbTWfr JPQvF1VxnK0mQkUjZMFb ZGRkOyc+PHRhYmxlIHdp ZHRoPScxMDAlJyBzdHls NC2oLx9lENElZIXr uRcbvESoGdTvb9oiEMXt HJgfVG9kiPciF4EetCP7 JEBoc5x4Ey25W22cS6Fs dXA+JSJdbLW2uGE8 iS8wEyNeDjS2HZbnX388 NcBegDEmVyuwk0znm8fa iLp2RyA4CJVmvwBkeDeh CYK4q6YcUt37C58e IHdpZHRoPSIxNSUiIHZh aFxoda2meR2oOv6+PGNv iRW8yKK1zD1aOtZwIuP4 DDytG731LpIhxEXc Pbste7vcz5qxpYy8SuVh XPFpksVjqLaiJNU4w8Iy Uq47K6MdgRmzj2YgMah3 mu87ePAma5A1nCA3 X8HsHAFtczeccAYuuGia MG9bATGaoxenPQLnhA5s BOScH6h4FfHmNaN0DCxi Y2SfgwJ5FSYsxZNc XYKurNSNlW3brthtr3aa cbmfOgBcGDXmNYs6GRn5 XGRdvWpxEmDbLSM0JlR2 AYS5lXLjoE4ulLrd mmauiB4uVwa+DRW2dOMt yVNAJI0iPnnpqEO+PHRk ZMX0nZvuEOyvNCPyvK4v VKPjW7l9YyLaIhT3 YOovI8QrugA5MXFumHLb BUWooPADqQ9eimzkq9rh rtkrJjQwHCJsNWr0PHf6 LWFsaWduOiBsZWZ0 HjF4BQK3uSQgjE5pkNtv mgjlqU0iExz+QmlydGgg RRC8ZSl5H5JzBxx3QGQh oXycRO6beUMpHQyj Ma9jsTlwgIsmTD5zRRZy zbabn126XfGyj2rmFOBr mOWcHIveJXD6R16ux3U0 JOMhWECrOIA6fNF3 qN3lzVuwdhbpoOIxfNsn zdUxvPnkSVqbOVmtV548 GWBkxBogToJsGSv8K3Gl Tst2ODJtsFuyGZ1v wXYvEIhvTb3dkLknbRvb ZR4xBUWccdaiz423IeKg o1suFWKrxPPeWGqmDCK7 L57ks7T6KSVyICYp OHH3vZQ0pU1jqCpgefkz bGVmdDsgdmVydGljYWwt GKorE375KVEdjLmiYjCl kNx3P4LoSsp8ZHMm tSzbOP7puVCbLWwoMt6d hRtjaLtkEK4tPCIdxqgw q124MvVoq8hyOKVqtGCt XXnpGWD2P15gj0K0 WLWhVINuEUP5pGC5vV7y bGlnbjogbGVmdDsgdmVy xOvyXApeNOdqO144NETf cDsnPlBhdGllbnQg LLdrDBp8N2NuGdyxbTF+ BS06UTVzWV08vPStdMFc p9pkjSd8MuReZKCuVUV3 oRoqHWihh3RjNTAc B76ewOUtf8Q7LMPdoUvg vSPfDfTzgVJ5mW0wOGrq icipu3jcowltTyeyj0pw kl45oN81C33wBOjv ZHRoPSIzMCUiIHZhbGln rc2dkH9dNw4+PGNvbCB3 rSD1iS8tLHLqPnE6LHpa B820LcGiuDNmPxiw v6jfh6mroPm5MeR9DTVf xuOcbBceYQA7k5MdDp59 L16yAUdmLEHdZZIyTFXg NCWiuYhzxr4cpT4f Ii8+BYDrsOH4cQV2aB4c CuKvQlO6YQbyG058XmYb lJCsTvydZ04pV5EapSR+ NVXcHqh4WQKcyGqs AN4ytADpQKhjTx6uPNF2 CwOoCbZpDMbyA8UhZBBc dvfjbkrddMZ3CMJwZLRf tG63Ke8cxYarJPPi aJFSpQ9umhofe0ztjkjl BtIuBQVsRSb4RVj6PTUn xJlxSpHiQXO1DeW0UWS8 eIMubF1yyFxdgidt mR0iT3WhAKQtkbgzFa62 lV2iOsJdWpW5PXfnDpi+ D3TWBkqlTY6LJ3cIIUqo SzwvdGQ+PHRkIHN0 hGhhEZsuPZJmjP0oCPRn Z7e4CvHwWwO7TYcwD5Rb BSCpebfxYx79iJ2xVjVa GfU7SJgpW5PafkH4 MFDvhMRaVZgjRQK1J93b v4F9AKHwXHGdIRI6tRD6 fN0zjOecmsovxHTjfDdy dmVydGljYWwtYWxp Z352YCWugMqjUoCqFeU5 YfY8AjZ8Z0JoJlh9RUYa yKeuHJ5yxVVtRCqrYp0d uPbddJsdHW8eNAEw uxcjQKEjoX6uUFLlkNFj nWzfUN4yOGLsgenor426 CrPrPEE9MEPfbCAjU3Ba nY3iSuApXRFiIKIj B6OzdSCmOLciL812EHaf UgF6NAEivpPkO8QbQCLi uPivHuU1y8A7On27IGUL ZWFyczwvdGQ+PHRk XDF2qKwrRBplBXPgiZ4y GCEbM0k1CmNgGsV3NWgq Z0FbOBGddsemMd91rL5d NxSnCfM0YRqjT3Nv atK3OOYseBUkRNlxJMV2 D53wq7G1RAHuWHZoJJE5 iZH4yR1uhAzqnovtyGSz dDsgdmVydGljYWwt EJcqE617KMEibWlvZk3C XYD6J2EyOtx9SOEjgTnd PQ5wyQSoVQzfRg8avXex gWybNS0hORRwuitk MNPlfF9fVEQqkQNoeOma YM2jTGCwcwdao906KdFy EFD1KXFtgIJaS7OmeW0j ZqUuRBPbMMRqI0Lu xWDqQTzqK811XKphEaX1 CVRbkpUxK9YxWUUvqAkg NsB4c4G7St6VVPjyqLU+ GK96xi31F9NlCika Tdh2ZPKfORV5uMA8jV4u KLNlJGmcv3F4kLX1K8Wg uiLrsd3aw5opRJAlZVqx V89uiLFse1U5LYFi fMK3HFYfiAkeSyWbiQ65 Oyc+YRInfTkwq6LaPbxw h0dbk6ijxYf9YmJuELKd adMplFtfKYN9t0Mz Pv06F98dAIzmEKPdADDk RYWoIQZpfBbnuz8shB5o Ii8+OFNwsOW4qXN6wB1a CdBnYlU2ASdnK592 TdAiwXEpHakbx5afq6rs qQf6KfBoPVWjwjRdwTdv SKF2x5FsUd89W1ZkeDcl s1EzFap6ks16sDRz i5C6aZN4Y1PuARVybnhl gTZenVkgIR3wDJCyhwbp OHOshD4cMYWhU0f2JtLh QvY5BHafK4GcboS9 KMPzsBRwSDUraPYXjX9i bjqjv4zasaowPoAfPHGa ELk5YLp9IHFxxEkmBvVh EMB4CyT4ONE4dNXg wV2ljJfxmwmvrZ9gChq+ KKu4r8ahwNJhCA5xnJA0 PV07UX72uQDpx7T3zRZ8 E7LyHMUlstnwpdnb kAI3USZqJZNkrW04Em0h bQzqIi2aZQUhRZQ5XVJy oWSuN1DtvG5pLxZdJFGa WOGfS8ScjDCuOMxh Y932DLvlAmX8IVJqvvEa L2MoOODmvBwkEzI3w0C3 Mq4WMG09HX01FT24sIBt c8Z9aZK1C5BjIRMs egvdwtcisWO4BJNdLDRv eD52Fi5qoElxBt5zXKIl DNU1WQDaaKUaE5RmrW9g WlLzFNUyZPTgS2Qo tUSbXRxjO459OUiyQdI5 DFIviuZeW8RoVYFuwYcq TjN1w1M3Sw4MCx18VM88 WH31wFEyq1C8kKZ8 R7ZtQCAognwatsikfIB6 LXNuJYIwnH51Ua5krKwq Mm5aLBOcYHI7TQBcxOQi B3IyzS3mAaAcOSQs NWVkI1IxvCEvYHxrT054 QXruYqK6VUGllhMmD9Wc TJLbsJheIfG5n2A0Kp6A BIzxeop4X8IrDelo dHI+QT71FUKjNR90gVOp hDVvg0vgfKr7FuBuALJu WKK6yUsrBPpia0TwVHYc R51bxZBpl7F5LIMc bGx (more content not included)... [facility] Outside Recordson 12-25-2023 Outside Records [id number]# [id number] [facility] Ambulatory Patient Summaryon 12-24-2023 Ambulatory Patient Summary [address], [address] - Visit Summary For YRN RICARDO Age: 63 years Sex: MALE : 1960 Address: [address] [place], [address] Home: Work: -- Primary Care Provider: LESLY MELCHOR MD Race: White Ethnicity: Not or Language: Bahamian Health Plan: 1?[facility], 2?[facility], 3?[facility] Reason for Visit: MEDICARE WELLNESS Prescription Information: If you have been given a prescription for narcotics, seek immediate medical attention if you have any difficulty breathing or any sudden status changes such as confusion and sleepiness. If you or anyone you know is experiencing suicidal thoughts, mental health, alcohol and/or drug addiction problems; contact the [facility] 26/11 Crisis Hotline -Text 4HOPE to [phone]. Follow-Up Information With: Address: When: KAREN ZAPATA, LESLY To [facility] [address] [place] [address]/ [address] [place] [address] [id number] In 3 months Future Appointments [facility] Appt. Date: 03/26/2024 11:00 AM Scheduled Provider: Lesly Melchor MD [address] [place] [address] [place], [address] Future Orders No future orders Additional Goals [...] 2.99 m2 Body Mass Index: 50.01 kg/m2 Blum Body Weight Calculated: 80.425 kg BSA Measured: [...] tab(s)(650 Milligram) (more content not included)... Normal [facility] Patient Handouton 12-24-2023 Patient Handout Urology [...] help if (more content not included)... Normal [facility] .Auto Diff 12-11-2023 Auto Posey % 10 % Normal -12 [facility] Comment on above: Performed By: #### 1 [id number], 1210699, [id number], [id number] ####[facility] (DEFAULT)[address] [place] [address] Baso Abs# 0.1 x10 Normal 0.0-0.2 [facility] Comment on above: Performed By: #### 1 5241336, 1936467, [id number], [id number] ####[facility] (DEFAULT)[address] [place] [address]68 Basophils/100 WBC (Bld) 1.4 % Normal 0.2-2.0 [facility] Comment on above: Performed By: #### 1 1919588, 7639309, [id number], [id number] ####[facility] (DEFAULT)[address] [place] [address]373 Eos Abs# 0.4 x10 Normal 0.0-0.4 [facility] Comment on above: Performed By: #### 1 0345496, 0913075, [id number], [id number] ####[facility] (DEFAULT)[address] [place] [address] Eosinophils/100 WBC (Bld) 8.0 % High 0.9-4.0 [facility] Comment on above: Performed By: #### 1 0541498, 4560877, [id number], [id number] ####[facility] (DEFAULT)[address] [place] [address] 79114 Lymph Abs# 1.4 x10 Normal 1.3-2.9 [facility] Comment on above: Performed By: #### 1 2901089, 1297807, [id number], [id number] ####[facility] (DEFAULT)[address] [place] [address] 44600 Lymphocytes/100 WBC (Bld) 26 % Normal 14-48 [facility] Comment on above: Performed By: #### 1 2362076, 8743791, [id number], [id number] ####[facility] (DEFAULT)[address] [place] [address]137 Posey Abs# 0.6 x10 Normal 0.0-0.8 [facility] Comment on above: Performed By: #### 1 6703282, 2047135, [id number], [id number] ####[facility] (DEFAULT)[address] [place] [address] 63048 Neut Abs# 2.9 x10 Normal 1.5-9.2 [facility] Comment on above: Performed By: #### 1 3656266, 9852087, [id number], [id number] ####[facility] (DEFAULT)[address] [place] [address] 36337 Neutrophils/100 WBC (Bld) 54 % Normal 44-88 [facility] Comment on above: Performed By: #### 1 0971649, 4119363, 3740973214, [id number] ####[facility] (DEFAULT)[address] [place] [address] CBC w/ Auto Diffon 4 Erythrocyte distribution width (RBC) [Ratio] 15.4 % High 11.5-15.0 [facility] Comment on above: Performed By: #### 1 1835997, 3143233, [id number], [id number] ####[facility] (DEFAULT)[address] [place] [address] Hematocrit (Bld) [Volume fraction] 43.6 % Normal 34.8-51.9 [facility] Comment on above: Performed By: #### 1 2882267, 4252476, 8123042930, [id number] ####[facility] (DEFAULT)[address] [place] [address] Hemoglobin (Bld) [Mass/Vol] 14.3 g/dL Normal 11.8-17.7 [facility] Comment on above: Performed By: #### 1 9576709, 9447708, 6791960054, [id number] ####[facility] (DEFAULT)[address] [place] [address] Man Diff? Auto Invalid Interpretation Code [facility] Comment on above: Performed By: #### 1 8921866, 9538707, [id number], [id number] ####[facility] (DEFAULT)[address] [place] [address] 90708 MCH (RBC) [Entitic mass] 30 pg Normal 24-34 [facility] Comment on above: Performed By: #### 1 7516243, 2258150, 3416101612, [id number] ####[facility] (DEFAULT)[address] [place] [address] MCHC (RBC) [Mass/Vol] 33 g/dL Normal 26-37 [facility] Comment on above: Performed By: #### 1 6419500, 4821014, [id number], [id number] ####[facility] (DEFAULT)[address] [place] [address] MCV (RBC) [Entitic vol] 93 fL Normal 81-100 [facility] Comment on above: Performed By: #### 1 8018938, 0913826, 5155105280, [id number] ####[facility] (DEFAULT)[address] [place] [address] Platelet 137 x10 Low 138-427 [facility] Comment on above: Performed By: #### 1 5628595, 6592350, [id number], [id number] ####[facility] (DEFAULT)[address] [place] [address] Platelet mean volume (Bld) [Entitic vol] 7.5 fL Normal 6.3-10.2 [facility] Comment on above: Performed By: #### 1 9225734, 2042346, 6192024183, [id number] ####[facility] (DEFAULT)[address] [place] [address] RBC 4.68 x10 Normal 3.70-5.30 [facility] Comment on above: Performed By: #### 1 0889599, 1406264, 7866563675, [id number] ####[facility] (DEFAULT)[address] [place] [address] WBC 5.4 x10 Normal 3.5-10.5 [facility] Comment on above: Performed By: #### 1 4351893, 2231673, 2551245682, [id number] ####[facility] (DEFAULT)[address] [place] [address] Standardon 12-11-2023 eGFR Non AA 58 mL/min/1.73m2 Invalid Interpretation Code [facility] Comment on above: Performed By: #### 1 5447112, 3951936, 9138372388, [id number] ####[facility] (DEFAULT)[address] [place] [address] eGFR AA >60 Invalid Interpretation Code [facility] Comment on above: Performed By: #### 1 2960657, 6617399, 0928383702, [id number] ####[facility] (DEFAULT)[address] [place] [address] Albumin [Mass/Vol] 4.0 g/dL Normal 3.5-5.0 [facility] Comment on above: Performed By: #### 1 9345792, 1035995, 3306454630, [id number] ####[facility] (DEFAULT)[address] [place] [address] Alk Phos 79 IU/L Normal 32-91 [facility] Comment on above: Performed By: #### 1 1661206, 1187951, 4534784900, [id number] ####[facility] (DEFAULT)[address] [place] [address] ALT [Catalytic activity/Vol] 23.0 U/L Normal 17.0-63.0 [facility] Comment on above: Performed By: #### 1 9428282, 6280210, 3022293615, [id number] ####[facility] (DEFAULT)[address] [place] [address] AST [Catalytic activity/Vol] 27 U/L Normal 15-41 [facility] Comment on above: Performed By: #### 1 3563569, 4763911, 5024548932, [id number] ####[facility] (DEFAULT)[address] [place] [address] Bili Total 0.8 mg/dL Normal 0.3-1.2 [facility] Comment on above: Performed By: #### 1 3029647, 1682279, 0541974570, [id number] ####[facility] (DEFAULT)[address] [place] [address] Calcium [Mass/Vol] 8.4 mg/dL Low 8.9-10.3 [facility] Comment on above: Performed By: #### 1 0478385, 2990091, 5083952603, [id number] ####[facility] (DEFAULT)[address] [place] [address] Chloride [Moles/Vol] 106 mmol/L Normal 101-111 [facility] Comment on above: Performed By: #### 1 4892667, 8106073, 7667261286, [id number] ####[facility] (DEFAULT)[address] [place] [address]290 CO2 [Moles/Vol] 29 mmol/L Normal 21-32 [facility] Comment on above: Performed By: #### 1 1755954, 4092186, 4681885374, [id number] ####[facility] (DEFAULT)[address] [place] [address] 67000 Creatinine [Mass/Vol] 1.26 mg/dL Normal 0.90-1.30 [facility] Comment on above: Performed By: #### 1 6332226, 7911584, 2582110981, [id number] ####[facility] (DEFAULT)[address] [place] [address]041 Glucose [Mass/Vol] 88.0 mg/dL Normal 74.0-118.0 [facility] Comment on above: Performed By: #### 1 8168140, 6301094, 7003261834, [id number] ####[facility] (DEFAULT)[address] [place] [address] 87617 Potassium [Moles/Vol] 4.1 mmol/L Normal 3.6-5.1 [facility] Comment on above: Performed By: #### 1 2434006, 6652788, 5371578334, [id number] ####[facility] (DEFAULT)[address] [place] [address]22 Protein [Mass/Vol] 7.7 g/dL Normal 6.5-8.1 [facility] Comment on above: Performed By: #### 1 4030776, 1437856, 8136399048, [id number] ####[facility] (DEFAULT)[address] [place] [address] 24112 Sodium [Moles/Vol] 137.0 mmol/L Normal 136.0-144.0 [facility] Comment on above: Performed By: #### 1 1231417, 6299410, 4246184752, 2360329069 ####[facility] (DEFAULT)[address] [place] [address] 12175 Urea nitrogen [Mass/Vol] 16 mg/dL Normal 8-26 [facility] Comment on above: Performed By: #### 1 5682966, 6948836, 7777467452, [id number] ####[facility] (DEFAULT)[address] [place] [address] Albumin/Globulin [Mass ratio] 1.0 {ratio} Low 1.4-2.6 [facility] Comment on above: Performed By: #### 1 0519671, 7556679, 8322856185, [id number] ####[facility] (DEFAULT)[address] [place] [address] 69705 Anion gap [Moles/Vol] 6.1 mmol/L Normal 5.0-19.0 [facility] Comment on above: Performed By: #### 1 4824531, 5150427, 2475853550, [id number] ####[facility] (DEFAULT)[address] [place] [address] 65727 Globulin (S) [Mass/Vol] 3.7 g/dL Normal 1.5-4.3 [facility] Comment on above: Performed By: #### 1 4821683, 0478209, 9266349487, [id number] ####[facility] (DEFAULT)[address] [place] [address] Osmolality 274 mOsm/L Invalid Interpretation Code [facility] Comment on above: Performed By: #### 1 3433908, 4612269, 0195720230, [id number] ####[facility] (DEFAULT)[address] [place] [address] 09782 Urea nitrogen/Creatinine [Mass ratio] 12.6 mg/mg Normal 4.6-16.2 [facility] Comment on above: Performed By: #### 1 4410058, 7053547, [id number], [id number] ####[facility] (DEFAULT)[address] [place] [address] 06225 Lipid Panel Standardon 12-10 Cholesterol [Mass/Vol] 150.0 mg/dL Normal 66.0-200.0 [facility] Comment on above: Performed By: #### 1 [id number] ####[facility] (DEFAULT)[address] [place] [address]61 Cholesterol in HDL [Mass/Vol] 51 mg/dL Normal 40-71 [facility] Comment on above: Performed By: #### 1 [id number], [id number], [id number], [id number] ####[facility] (DEFAULT)[address] [place] [address] Triglyceride [Mass/Vol] 73.0 mg/dL Normal 0.0-150.0 [facility] Comment on above: Performed By: #### 1 [id number], [id number], [id number], [id number] ####[facility] (DEFAULT)[address] [place] [address] 38973 Cholesterol in LDL [Mass/Vol] 85 mg/dL Normal 1-100 [facility] Comment on above: Performed By: #### 1 [id number], [id number], [id number], [id number] ####[facility] (DEFAULT)[address] [place] [address]4443 Cholesterol.total/Choles terol in HDL [Mass ratio] 2.9 {ratio} Normal 0.0-4.5 [facility] Comment on above: Performed By: #### 1 [id number], [id number], [id number], [id number] ####[facility] (DEFAULT)[address] [place] [address] 85075 VLDL. 15 mg/dL Normal 5-40 [facility] Comment on above: Performed By: #### 1 [id number], [id number], [id number], [id number] ####[facility] (DEFAULT)[address] [place] [address] Provider Orderson 12-11-2023 Provider Orders [id number] [email or web address] Normal [facility] Coding Summaryon 12-05-2023 [facility] VodqnovyBUv2aYb+PGhl YWQ+WC2WGDTxJ49jdTRj tJ5fK6LLVGeZCkemYSPG FSeDKkOletYjWT3lpJUa ZXJu IC8+PX7hSVTkAmkyaHVh b3S6xHZ3D81ojh4sJKrz eRJ2JYAjPuHvpbrdk1uz fKt3JQseSggeUvFn LDAkvX68YSV8uF73Qm81 fQHyxKLnz5bweSc1QoTu DNRdNUE7mMerRMcig7Eb ODSjP82voXUkl0N9 IGNvbGxhcHNlOyBlbXB0 oR0aWZgnrvnkv6lizzzv Fjb3bf63pXSwg0D5zXR4 C2EyfmU1QQMktWFa GdxizATKrS8cqgmvd2qg esodIiOgIXYuOUy5QOj3 NSOhrHcxOhBhCY95XSB6 YUYwoeAaM0CxVPBf sQbvUeY0m4S9Lx4OE1DH KgeaM9NVFYXCNKhcdEC+ HY27dd12G1TvAuanOxc6 WBRaMVU3xRW5dV1s MAEcXOqjw3T2iWP2K3Xg oqZthj6wq1fwRMXjIVzr L42inFTlv1L5FDUelJJ3 VAHnpBmwHlRcvV48 Oyc+FTYxfMfbz8EhHkzy q3lbx5wraSh4CkqjHXVq spKscGwvMGL9s2OrMv4g POHbhYI4pMB0bF4z QeGgIsW4JTfxM365BlAw cPVhRhepM99oI7IesGZ+ VKFlPeq9DZSoiJxxYO9j V6IpZHDuufxahSRa eNzaHI7cNMKbvrxsSVAp nK1pWDSbS9b9FsDaGmE7 RHlyZ1EfNGIbkxeqAt53 vZ4wCqKmIkM6YWpu Z3XzahF0KJXqnELbGSxr QDF5J33bn8H9BLGgYSMn FZR1fNN3eN9bjSkbxzeg bGVmdDsgdmVydGlj RZviDQtmC426LBFnjDpt PkNvZGluZyBEYXRlOiAg MDgvMDEvMjAyNDwvdGQ+ WJUoFIQ5mFrwWGPw pVSuPGarRd5vaYhwzNkg GL6jORAujabsLBOkdF4l DDPrsOLrjAtwZY6eLGJs kmzdm637ArTsWJN5 WHIosEZbB8SgtK4xVmJc ZKIgFVGaH4PlqXTiLCzb B692BHjwGvT1LPFksaKw E5KtNFEciRozAxF8 q2M1Yb1Tm0QytdtoO2Wp lWGyLlPyBansDGx1Q0La PjwvdHI+ZA43OLBtZN62 LTz6BVB8iIsjCBbm HIWfS1XyaM5uFuAmWDXj ZGRkOyc+PHRhYmxlIHdp ZHRoPScxMDAlJyBzdHls YW4nPa4wXSSoPOUo cIgjtRVzHsFdj7hgUQQx RRdiDC4qhAhtM0PstWX5 GHMfi8u5Jv28Q90nN7Ka dXA+GZBmdNZ6cUM2 iZ7bAiGbZsH7XTxrN049 PeMeyZCoNiriu5hvh5ts eMb6PqJ8GGXwdpDmsGzi YIE5k3HgLb57Y68p IHdpZHRoPSIxNSUiIHZh qDttpb3cqB2gNm5+PGNv kZP6bHQ9mH1bNiBgDgN5 TBwbP080CxHsbHRk Foyme2rlq6mxjMp6DhCs ZATgqyChxCwcHQB3l9Jv Db80I1XuuFfao3IkXog0 dl64yAKsj2X6yJQ2 R0ExISShpokpfKThfSyc ON9oDGExljkdBJPxvU4o GCSgZ3r3DwRkLkD2ESxd R9DvrdQ4QHDsaEKc DAFxmYTOqP5vkptkr0yy mzvmDxTiMJDcZJj5AGm0 MCRxfBjkXjFnUXD3PlB7 FST9zGQiyY5eqJcv ljzywZ9sUjr+LTO9zXWq hKWKLM1hKbhzyUV+PHRk VMA9iGmfAVsgWULdqG7d BNXfW1h4RwKvFtF7 IWgzB7BaceO4PXVckEPn FVEnvCMVqX8wgcuvh3px bntmVmQvOPWuWUk7CLe4 LWFsaWduOiBsZWZ0 JdS0TFY6sCNovA8fgByp wtinpX1vUio+QmlydGgg CGZ0EXk4S9JgKec6INAc hVkqEV3exIBoRNtq So0ptXmddQwlJJ0sPQDy unags604YvUxz7zaSCHt iZSlXHezOKH3X44bp7S4 YWWpVFQqNQT8aRE0 nO6dbWipvybssYNuhUgk tcIorMraCIbuWMndX292 XAKnkLrhOeQuROd5M9Rd Xpr5DYVfkKjeGV3y mBXaRPrjUq8wrVlvvEhh HC4wMNRsmhipn864PbXk e3hkDRWaaQVrRGarXKS9 R42bu1B1MXUcSUEk ITE7oSK3gO7gaSdonxlc bGVmdDsgdmVydGljYWwt YDssB927WAPudJigZzUk xGd7P7KwClr5VVZh iWuuCT5rcNCgVDqrOj5p mZocoXzvSU9kHTAxobgn z006FnTde1rgGHIauHEn RBubJBC0T98ne8H3 TTGxNRSdASV2kDG8pK6o bGlnbjogbGVmdDsgdmVy vYgrNOouRXpxN233PTRj cDsnPlBhdGllbnQg UXieMBi7F7MyRwcyiOQ+ FA79FQRuLZ16gXPueEDz p2skxOu1IpAzEXJxGSQ7 oDtcLRgbd3VrKOCq S75ytFQse3T9EBLogGnv lGHzEvBufBI7kS1sXZvc snptl9otayrgRdyqt8jq xd92eG80A55kNCpc ZHRoPSIzMCUiIHZhbGln ow8weT2vIo7+PGNvbCB3 qOT9xN9pGLGpYwI1FMif Y416HzRrdEOdXbkk b3sch6mzpJn4TkU1IAWa czMgjMqiQVX1d9UuKh49 J09oLBnfREHaUYTcUEXu EXUhwZqqfu6vxX0h Ii8+OIZtdGO7hLG3xZ6y LmJiYvZ5QVpjP967PqDa fHBcSctsG17aW4HcmGL+ DZInSmt0XHZvfWmu GB2nxPLfUOhyDs3nKPO5 ZeAdZpFwTMxiL4NoIZPf mliayfodfVT3EFSmUIBg iK48Rv0cgTbbSXHz zMDKqA5oirggf1uharvx YpNeIAEdVKu3VRp3EUPq sOdpNcFkNDX0FvV6QGN7 wRGnjY8avQjzweky yX6rD1TdIHSddnewGc71 lX5kKqYuVqL4NBroHlk+ J8JZGldeWJ7WT6fWFSdm SzwvdGQ+PHRkIHN0 gZctAVntGDIamX2lQNLh D4d3XrVzRiF8MVhaV5Nt CVThhhtyVt04pS0sSoSj NyZ5GVtjF2VfvrE8 WTWlnAYdFFreBXF8C53c s4M1ZVOvTJCvKGO7oJJ5 fC9mjKcckucfqYHvlVbv dmVydGljYWwtYWxp U846GPLbmFnxUbLyNeZ3 SdS3RiT8L9DcWkt3NSHd uYwjMQ8odZUxTAzdEg3r uGizePqwFR1kVWCn mlzlGIRhuX0jPMFizLBt kAcsKT0qOTMfbzztg000 OsDtDUK0ZXHhsRYyZ7Tl yY7dTjHvWBSfAILy L8JncLUbKBjwH956SMvk WqC0FHAdwfEdH5MpXBCc tRoqAnQ2l3O9Bt30GIJO ZWFyczwvdGQ+PHRk ZKD3lZckWXzkCBLszI5r HNFsK1z1RdPpTzV4VNyj O8WyWFYadtntYt36hT3m VrGjWlL7AOloN8Eh rpH8AWXdhPLoOMlxECW7 W69kx0B6ADSyZELgKWZ3 pNY4wT8aiAqkevvaoAIu dDsgdmVydGljYWwt FApuI179WDHtiNlvSp9Z OWS1D1KsRjj2JIQteMkv HE3bbXSlGIcwIy4ptPvu fMzoQM3fRLPqzovt PWZktT6wORQbvEAqfRun LM6yPSHdsrpmy844LqFw NTC0OFDhsLOaB7SugD5e DhZjZDLvYMKuZ5Pq lZPqJHwlA337NUqmMmF8 HZPqjiUgG0VrTHPebYbd RtX6p7Q8Nu6GGFdxyOH+ JF86it04W0VeYgcw Jna8RNAoHNP9gQV1tM5z GMQfMUzvk1A5uGB2P7Th vxWfqy4ot2opJLPqUHej I30oqEWpb8Z4PWEz kUA7XXWnaMnnXoLpdH61 Oyc+IQAjfAvtt8CyJnnu u6ooe3nvjXt1PmIwLQTq ciSokCnlPKA1w0Mg Ta69T02uATccHMQsYKNv OJMmMBVucGpurq8kqW1v Ii8+GHOfhBD3pAE0lD9f DvKeOhJ1MTwaM595 UjVnhSKjJijvo4zgn2xa iXn7QlXrMHLufnMtkGeq STB0i6OtKh86A9VglImo w9UtAep4ie63gXJj x5E6aIV2L0RiHEUvqkpg qDLoyAonOI8kOOCjgcqb XIJwmT8lCBTcE2r9FoBj DdL7EQhnY7TjzoG1 WGLnbERbNQSyrCESvG6i fkvos0lmdrzxIlLlHWLp GEz8HPu0DIQukAujYoMy SES0NgG4NUV3sLPm dV7lmTpxuebhvV2zFgw+ SEe4t2rzmWZdEE9kzNK9 CS08QP44sMEpl1D4jVB4 C1XxCMQzsopvqvwe nPY8MOIvSOXgqE79Ws0h nFyeEg5iMVQyNHK3TNBb rOFaT1IhxJ6aYlGdEFGy FDQkF8EuoDFzYUav T655UNewCuK2KDYnarJk S4YvOFSdqQscLqW3m2B3 Nf8YYJ21WT40YM49hFSq h8O9yLA4P9DbFCEn ouakignrtCV5YWWuQGUg bW95Tv7zjKjoMe1bVFMz VHP0NXMcyCBvH5KkxS1k VsUqJRCcAPTnP2Aq cGIwXNmgH267XRsuNeX9 AACijaRgY5DzIVQujYat UzN0d0K6Xy4SLx98ZF96 NZ15mQXcp1I5zWL8 V9RxHKPjdvkzthweuTF1 AEBiXQRxxT09Tf1caLsu Uo9cGEWnRKS4PUXqsXMu B7TfmC7qNaFkHTUn MJCiJ9YkzRQpTBymE376 XLjxHdB1XJLylbJjE0Aj QUApcYmwCzG7a1V1Fm4H ZAnelfa8N4QvVpta dHI+KV34IKHyJS23rJGx xXGyi2xfkFm4GcLyCNDd KDR5oKcfDIubl3BqTNRd K30jqGCnf1R5XWPq bGx (more content not included)... [facility] Coding Summaryon 12-02-2023 Coding Summary HTMLBase 64 EsycmfwjLVg9mSm+PGhl YWQ+OE3QACZlP27rnOTr yH1vN5SEXMgNQlqcOTQD QFwGRlQbowEcEL7gvIDr ZXJu IC8+GL6xNDVmIlsckJFr t2C5iWD7C82kqp8uWAud tHD7NMYxMgIbvfdmk1xa jEn7TMimXamaSyFu FDUunN71QNH7rW18Qb41 sCYhzAVxl4bpyPo5CxNn OKTvJSO7sBdoCCdvw1Lw VSZkU01evTBcm4G9 IGNvbGxhcHNlOyBlbXB0 wW2iKUygxybmu7hxdytb Zlb9kd08jKKqh3K3wPF9 Z5SjhjH8DDOxyURn ShrfdVLPxU4itique5zd prnxBpCfCZRcHHd8IKt7 BBYplYtkYaImTT71AQW1 QJLwerVqD6OdCEIp oVniSyJ0h0B9Qk3WP4GV EpusV0PFFWTLKSzvnQX+ OE63nr15X4JiNoodSmo2 YVLoVTA8gZD3bS9o XHDeOKuwr9U1kIM7Q4Az gkCuek9ac6ifOYWsHSeq N57ohLKwh5M7UJKyrAE9 FKFwyNduZgDwgN26 Oyc+JFUlgMati6HdAyeq i7vmj6kytIt3YpziZEAs wgGkeNcbXJC2x1ZaGf6q PLOoiHW1aYZ2jO7q DoUaZpV6NLjwK318UbGd xBRwRtojD49qP8HbcLQ+ ZBZbGyy5SYPpeRtdBM4y T9XhKJRkpboogTJy qEweCD4aSDDilhrmHYJn bV0vMQJrC6u1RxLdVcS0 EVnyF6GyBFEuiatvKl11 yT3iTjTwHbU8IPyc U6KmtdF0DUWirONlTYdk GMS6L19jw0P5HPLoQQKd WYY3kKI9uI9joZsoeggx bGVmdDsgdmVydGlj UKydGXmsD577LTTloZno PkNvZGluZyBEYXRlOiAg MDcvMjkvMjAyNDwvdGQ+ DHPnSQB4cShaPJOw mEHyDQjuIs3xwOzhdQnm IV4qLYFeypjeFFPofV4c VGMyxALgxMdaGW2zCFSk vbkko125WrPoJYU9 EAMyqJLpU8QjdH3aVmWm VONnIZWxF7FhbTDkOGln Z696EIxaZzU5FCAaljRu D9RpLZColMkzCjD4 n8F5Sy4Su8BpkrbgB6Gg wRCeMmKjOctyGFl2Q8Qu PjwvdHI+QB54EYFjQR94 EDk4CCO2sAixNNts JYMoD0DnuH5bWqOaYVOm ZGRkOyc+PHRhYmxlIHdp ZHRoPScxMDAlJyBzdHls VC2dLq3uGEUbPULl jHmpfQTfFfWoy8fbMBEc WQqjGT9gaRueV2VrvSL1 BXQvl8s7Nz43F97eK9Rt dXA+EYJpdAV2wPY2 oA0tZgXcTeZ8DGrgW942 ByXpxLJqNlmhw5ycu9uo uVl3SnJ4ZGBlfrEndVbq TZG1z9MpHq90X93f IHdpZHRoPSIxNSUiIHZh hDamth7kkH8zYh7+PGNv xOX8lJO1hT7dQfZbLwM4 OOzkR637JsRxrRKq Ajxey5mjb1pluFa0SkIc OGBdbyFrrSanIEF7h9Zh Ze26F7QdsLvxv8RaGyh0 lz68mHLcu4S4aDY5 J5DsOCVnrbxuoYHflTxj QH8rIMWzboblAZUriN2a MFBeX5p1VsMkYfP8ETcq C7FbanR7HIIuaPOx SULncRRJxT0tszvoz9wj ojagYaLyEYTfMQh2ICh8 NLJczYrgJyRbQSA7JkQ4 EOQ5tBBciL3dmJpu cjdemC5oZwb+OYU3xKSc zJBEFA7yEzyjcJZ+PHRk VGT9vFiqDCppMCVvfF6i GOYqT9v1YzHaExO7 BAouV3JuojR3TDTasJFh BYEjyOSEuR7omcnih1oe rxirXcFfLYUxDCl7PCx0 LWFsaWduOiBsZWZ0 SzE8KSZ1bYOcuJ4doCgk oahtcU2pEts+QmlydGgg KMW8JJk2E4LpLdh1QSEm uBjfOB3haHBtAQye Ll4hkBlfcJygFA1qURFh jqkrj398ZwObo9avQYGo rIIpPCxsMSY8W46je7Y4 RHGkUHFpOBQ4wEB1 lW1twKphbrlihKNreUqu unUtySyuYKkvAXqqT616 QFHqwErdVtXqHOu4Y5Jm Dkh0MHSqbXjbBR6u fXUbVEcrVq4yjPnhaUwp HF1mKRIzwfbql486QiCh q2bhYDKxpEWuTYasNWR4 O84kd8E6TDFfPETx TNR9xXK4iV0suEblvdma bGVmdDsgdmVydGljYWwt ALqtC144VKJxiUmxLrEh xOc6Z8DpGfk3IZFk fBnsTI7fcGXiNVqsPr8j aGltwRinKB5cZRMqlgfz j875SkFef6rdJIDxfPJp YVacFUP1N34kq8M5 WYLaQNOqIEO7rOO0dN8u bGlnbjogbGVmdDsgdmVy dPcsAWgzSEedP803FMCb cDsnPlBhdGllbnQg SSfyJZr2G7FkZejkwJZ+ KF11JDBfFC31aNCmeAAp b7peeAp1WrOkIHNuAKM5 oTaoQYuab7JwBTTx W04cwGZgt3G2FWAlrBmd dPTaGsShiOZ1zH0jMXyp wihig8lfczzuVisxk6pw mw42tR86I68qGEmv ZHRoPSIzMCUiIHZhbGln lp7pqC6kXq8+PGNvbCB3 uQF0jU7kLAIiJwD3HKlg Q013MkTfsAWbLlgz h3sah0mvxDw9LeL6ZHGw raXszBzqZJQ5w1UgEh65 V49iNZxtXQUwPQYcREIr VXUgxGynns2iaW7n Ii8+SWVsaXW6pUS2tP5x TqUhTzM8VEnmG721IoQg pKIdPpwnW83kZ0FucGX+ WGBpNem8EXWitWfw WO2cwBWcTVzbEr8xIXB5 EuSoXkCsTLapR7LoOOFh jygagynfpCY9QURjHCVj wJ74Yv1xwMnfSJNy eYZXiM5cswcfh5armstu MbRqZBSdZHi4QLp1RSXb gWmuYuIhKMM5SmK1GOS7 pLRcpW8bjLltabdq yY9wP1YgCAAjissfOf06 hD0jTpGlNhZ8UPfvKtm+ S8RQKjhsEX0TY6nBVDbx SzwvdGQ+PHRkIHN0 zOplRYfsOWXitK7yOEJa B4x7YjMuOaY1PFbkV0Yf PHHxcnuqXl47uT8bElQx XzL3UApeQ5NniwQ3 NWFnnPWyXWerOZX2K07t z6M9ORPfGMFlHTC5hMJ5 sI8arScxsutshRKizCad dmVydGljYWwtYWxp X122SPSiiLfnEcFpUwK0 DmL4QcH8J3PgOtx1YQMb wUltLA1vnCNjEOrrBl8r wOgxhVqcIY0mMGWx feecDBAjkP6cTOBnvIJs wKroQV6gNMTvlszhu850 BdOxTVL7SRKgyLMtA5Rb yM8lTgZdAGIzSFMt R1IooIWeYGqfI287SInc XfX8YKUkqvMnO7AlJHXn yRgpWgH5e5V7Ga83ZGJI ZWFyczwvdGQ+PHRk RWI7mPucPEhmHRZzwM0x EEBxE9g1QzSfNeU0KOce S7RsCVRlmlxpZr72oS9p QnDzDkM7RIyuU4Pe dmH1MLUcsSTvZZypDEH0 L66mp8J7KQHbADTuNTE6 mJC7kW7nlMbbbaudtNDi dDsgdmVydGljYWwt UWzxJ625TDBmnIiuHm0W CLP3K6BwBre0TNKvrZin LW2maCPwYClmLc6umWvl cVyoQY3iVABoytex FBMmsL6hUZOolRZsrSfo SN9fOBSumkejb560SgHq FPN0EFJjoSCoO3UdjQ6b VoKyXCVtGQSzT0Da jDBxARcaM442ATxuOgI0 PBAqpzRhS8HrHBGpuXai XtA8d0R2Ks3EHFvgjUT+ SY05be93V0TpBsav Zjz7ZPWnHGH0jDM8vY9d HSAzEPygt0J5ePO0D9Bq qrTscj1uv5pdJTVaUQaj F20hpFSdm6C3DWOy yLJ7ULIdjNbeWdMyaD56 Oyc+GWEohUuyb9ZbQqgw c8xjl8thzAg6UgYiSMLu qlZrpAeqWZJ7f3Kg Nu68U09wPKxtEBFpRRNe JQCmYSCywSdyga6bxE8d Ii8+RASkuEF8sMW8uD9t IwEpCrV9DBntD263 GhBvmDIwDipwi0wdl8pb iPe0ScVtKUUrynBldCqm DZQ0v2GeWf09A8JcrDuq w4QpGxd1fq95yHAm v8X4wMQ1D6TyQOYtzxxn kRXqpAdoAE3uUVHaobjy PSImqO5pEPYnG6d2QhSb AdL1BSfjE5JsprA1 VWXqeOAjOTFckDBFiW1r gjihs4ulhcjlLhAwLDBc YCf1BWo0DDJkvGcbUhJd DLI1VnO0HBD1yVYo mC2woWjimrsfbK0mZaw+ VGi9d1zykGXnYM0ahWB0 OY68QT93jVHtj6L3cMH9 F8QwIZInjvbqhcwr kLV3MFJbHFOaaE63Wy1d kNwuTr0cAAAlHDG0PGMc nDOdV1TkfK3sBiGeODCv NQCzF3EquSOeOAvt R576BFpfQpH5DIQitcLo S2XbEIVkvZtnKoD5c7O7 Bx8LMH07GF72VK55wEBi i1M5uGL9I2UzTGYp eoptuosjhPG9VUHfQYRt vW59Ru4frZfwWk4iUAGe MRV3QCDjyWJuM8HvvP7q QtEsZOPcLPYrA2We tNDiSMpfM226IZgbQfT2 TGYrpqXmL4PrCWHewYkv VcZ0g8T7Qd2PAe07EU26 OV39lDRgj9W4aCR7 M9IwKGXjbvkmvnxirCH8 QVJwWHHosQ17Pv4qdDni Qv4mTHLbRQQ7DKMvfFMi M8SvaV1zHyFeWNOv KTXuW0FobBYiPKgiF021 LTudRkK5BISmbrYpG9Jp VQVitNctAaS9u2I4Tx1S FKixcgm0K4IfBviv dHI+VP17PFIkJX45sGMg cQXrr5ggnRp2DxFaRMWh KKK4aKrkANohr8UrFMKj M32hcKXah5M3PMIn bGx (more content not included)... [facility] Wound Care Noteon 11-25-2023 Wound Care Note [id number][facility] [id number] [facility] 11-13-2023 Coding Summary HTMLBase 64 HcaupeplFCd2sTt+PGhl YWQ+ZI7XARBmZ73ubDMp qC6aA7PFPNhMQkjqGMYQ RCxHAcGcrsJjBY6eeZQo ZXJu IC8+FV0qVKHyZktmaGQs b5E6vNF1M13jxk7mJOyu qFQ3LJPgIiRxujthb5cc oPl5IBpvAgtrObTd UBFjgN18PIJ0cX38Id51 pNAgjNRfm0bhpLr6DwOe DOSnVMO1aLueJSnij1Rj FSXvV00ipLXzp7B2 IGNvbGxhcHNlOyBlbXB0 uQ6nTHihibyaj0jekmjm Lvm3jy89sRZqv2P3kAI9 R2MiygO4PIOzfLTr KelobUZImU5xoseek1sx pkxfKeFvSEHpPOc6GGm2 WKQpiEglAsSeTT46SRT2 KSClutRiV5GaAVOt uYzqXdT1k0N4Cv8BZ8TP WqssG1HTMPZQVZfswNS+ AN37io00N5WcJbmbBdd3 VNVtUUR9fML0gH8r MRBrTOshl4T6cYW7O8Oa esGwrx6hp7jsOAJyOYlt M93cxBJgz6X4CLQcqFS9 IKAudUtkOcZrzU56 Oyc+YCWqoEzrv6RsUswp w1vuo6ufrEj9BmwrTOHt eoPfkFuuDDH4i9NhEw3m SFSqmWI0uRG9uZ4g FyWvXaC1ZUnqS540YoIe cQWgZyhnD70xF6HtdFV+ IJHhYxx3RAOsyCxtJS5z E5GxGDMrzbksjUMt iJpqYU4iTIGrymqpYZKr fY1yFBBbC9f2IoRwQiE3 UNqrY3TeQETztqvxZk22 rF7sAwDlQrU7ORfa F1XogkH2PUMyuEWfSOzc KMB1H75wl1D3BLSeJTKd SCG8uOS0uW9aaMolwhjr bGVmdDsgdmVydGlj OFtbEWjzT316CZMksBug PkNvZGluZyBEYXRlOiAg MDcvMTAvMjAyNDwvdGQ+ ZHUuDAG0zJirFRZj cOEiRPdgFi1xqYrbkDqw JE3sTXNpgglaMNRtnB3w BXBdkODjrDijGY8uTYEe mwakw545NkZqZAM0 JJVydDJvE8SyvV2jKpXr WYJaSKLlO8PdoTRnWRnh Z987TAwiAzY9NQYfemVq N7WbHYBzbOdaStS0 t0D8Tc2Fv7JdihsgR8Pq gELzMuHwYflxAOu5C2Lk PjwvdHI+RZ81QGRcAG93 MXp8BDH7cTikDApw MFOaA2TxjZ2jYaWpVGDx ZGRkOyc+PHRhYmxlIHdp ZHRoPScxMDAlJyBzdHls VE1lIk4qIMGjJMSc bImpnSIwAlUdn2hfNSOs ZTmiKV3seSnrG8FheQP0 NNIvd3t0Jo86L98gB0Tj dXA+EDGlqPT2oTO0 hT0zSlFbHpS1HStiF765 JzPhjXZfSfihm3uvy3vf jYg9ZwZ4IIZteoUpkSuq NJA2w0EuLd69V07h IHdpZHRoPSIxNSUiIHZh bOoobp7goY8pOt6+PGNv tOX0zVU1pW7xPgCtWqY6 CVlhC871LwGnkZAp Xhxfp4zji6llxNf1VkIw YCGeswEyrCkxHLI7m0Vo Gk77Y0MguIkkt8VjDxl6 co33vBGoj1R8cHW1 S8ArAJRxdxzkjFAbaMpc LN6nRPNignbcPJSqmP6l NKAsL3u0CfKyUcV7NSnb A1QzzvG5LFZrlEKr CNAtkGZJiX7epmdhj9hl sotwCvTpMYDoPHq1YZm0 WRCnxFmlKaImRTB8WrX4 SGU5iHZdlQ5wrIcn zeyffS9zZpb+XNX4cGHw tFGJNH1uUsrmiFV+PHRk BOT3tHhxLOppTYTykD6w HSLeC9t8VwPqOgR8 XTdpV3LwbkD8MQVgpXQw LJBymLCRqH3wtikjj2jr wvsmDjPnDJMjLGp1HYa4 LWFsaWduOiBsZWZ0 MbZ6NVB0eYLddH3uxVwu akkcyG4iYbc+QmlydGgg NOR9DKi3X8UjAng1FLNk qMesPX6swGFaZZxi Gg5dvGtptVhpPO3fAURc paucf242XfJsv2vjOWDs pLCuEGuuBIO0Q65ro5N8 DBMuJFMsTPP0wZE7 eO5tsFvgbjlnxQJirErt boKlcLxeZStzMCbsX065 OSVdxTqrHwGxWLs8U6Ii Oew5BINkoLnwTS8c rYQfVSfcBh9fgAhuaHgu UX7wZPWgtuvjj329ClIg x9cmTRCyuAMgCKosXGM3 B26of0A9DOTxXWEy ZJL0dUN3cK9fiPturdie bGVmdDsgdmVydGljYWwt UElzE109CSXnqOvgNjIz jGc1G1JuFqq9WCMo tXofYK0cvRXtRPewGn7b wJnekGfaNB6nNMFxoszo u999IyUau6yoDRUvlAEn YEciTNB6Y56yw1F2 OWCkKMDbYAJ1jTB8kU7c bGlnbjogbGVmdDsgdmVy uOikWPqlCDceL430ESXq cDsnPlBhdGllbnQg UDbbGQx6I0RxKkemvGD+ PA92EYJtXW10wCHlpEIa k1hzfKy0RkYhBVWtKMD6 fPlrSJhzn3NtEFMe F28dfSLeo7F4CAAhxSzi sWUwPaYscHF7yC0tUPde qpvkv0cxoffbCucxj6nx qh06bP03Q42sLUai ZHRoPSIzMCUiIHZhbGln kf4mcH2xRc8+PGNvbCB3 cVU4gD6qUQDyMyZ7WTsh W626NsIkdUMaAfek h5qus9udsPm2ZqL9MZZj sfMjiJxsVWQ1m0AcTs81 W58cXLfcLRHdMADzAQBv TVAjqNppbv2mhR1s Ii8+SCPxwFV6tYQ1eT5t FkYbOpM3UMxvZ273PfJm bOJhZqimQ06vC8TnaQY+ UEAhAhm1UIJxwPay QF0dsPBdDYcsGo8zBAC7 KzPfKoYfGHkfU3LhDEKa obykzmfvaFE2HLCyFCDp sF76Jw0ngRdsXJAw qWTRvK2qnhpoo2qmjgqo AgJcPPXiKRn4TWd2JQZu tVjcQxApRUQ8BlO6VHI9 vMJweL8wfRwdrhdm rT9rR3CrWAOdpcjgTw62 lA5fSaOqUoA4PKdiBun+ Q0THLynyBK5AP0uWLYcc SzwvdGQ+PHRkIHN0 lOmjRSlrUCNkmP3yXGRj R0p6PoRnXdF6MOquD7Tu GAAykmcsAa43fB7rCxMy XoN2XNafZ0TsaaB0 PZSfpVKyGOpvLBM7Z24k d2Y0PMEhEMIwBUY2rXL7 iH6fwVgyxuaicHAuvShy dmVydGljYWwtYWxp F275YQFziFtsRcWaQyP4 AsM8NoN1L9CzXco2FUVi qSfiBL9drVCoWWroOv9c jVqdrOexWQ5iJHHc kwreXUTjhO2uWRIalWCd pNwmNO3iPJXqzujrz205 HgNvHOJ9GEFttSQxT9Ru vW9cBqUrOQJmGUMg D9IxrXWkJUscT388GIdi KvR4CWPffwCpU0SdZGIc tOguTlZ9e7Y9Jb96MVXE ZWFyczwvdGQ+PHRk JSP0oQptBFkrZGTwgV5l BLEhV2a1SkLrAkD5FKay I4OuMJDxgtetYn53dK9w XwEiEfF8BJstQ9Ss zvP4LOJelAHdHArvWUI2 F37wa6U0LJMsZOVpOGT5 sKI9pT8nfYtyhblhqNUn dDsgdmVydGljYWwt TIeqS092HZHxpHzcWd6C FZA1B9KhOer6FRIokGxf PY5dzZIgEOjsOv5pkAdb aBkvBN0hJIWnowao MXYojX3jWBCsvANucJbp XS0uVXEikjkon808SwAm ZHP0BLAwgINxU7WvyX0q HsGaMHSzWUPoL3Yy kGFeTDroZ139KUaiMhD2 IHKovqSyN9KzXYTzsHel NyW3q5T1Mr9JVOamlTQ+ FR83ax80L4KgKrpx Fph5UIErTMW7eXQ7eF7w WFYcRKgcs4L6nQW1T2Ca elBvfk4es0flYCMoDOio K15btMJea9O8QKEp nZL7NJIogNtdAxQzjJ90 Oyc+OOOmkYmmv3RjJzyz g1syt2rpnUe2MwLlAWLd uaJjxJcfTCU5a7Xr Cp03N83xZPdaZAYlSJXv VUHrLDVmiGbriu2ioR3p Ii8+OCRsvOM9aZX8qT6l DfHiQfE6AClpP176 JsXflVJuAehox8jpq3hg hKp3SxHlTLDjsjAqlHmt BKQ5b1IiJt55N2AcqRxs h4EiEud3qi94bCXn o4S4jKG0J9AvIHYwwkfp xSXtfBubXP3gTEBaaroq SBSeeY0rPLTfG4r8MlMc HsM6GTktN6OlloE4 ITCquCKlXYQpsCGEzC5l vnuax5suzhgfHdBxUCAh FQm6SEq9MZDlcQprTnFv EEO8TmM0DZD4iNBk xS7flZegwqriiH2vLkf+ YFj7a7oasNRpDA5rqWI4 UQ41HA51nGMnd2O4bCY2 Z2LbKAMbbiomfzvq wEN1BFJrMQHsbF38Tm1n rYnrZx6tZVAaJDF2TYEs sSCrF9QrdM3mTgWhMCHe DRIyZ4RciXYwFLsj O362FIpjEjE3LUJiczBg O9WtSMVyyBqtJeD9a5D5 Km3LLQ46UH74XZ93uCEj b6G0zFZ1V3VoJOBq ijybhwhmzVA1CSCuAWFv bR89Si1veHnuKd3zGKTr GLE0PWBypACaI9RlnV5c AhYzRYIlLCOgI2Yj tKBvBIbsA066HWkyFgN8 DBDxveVnF5QwJSUwbIap YaF4u6F4Ae4VBi31TX65 XR16xNTwa8K2fSU5 E5PhQELipgehltopjYK0 BXDnQSWkhZ77Vu0ciSsl Kb1sGIAgILT0VRIhvZAg L6GhwU0xTuVoZYJy RSLoF1ApxSOkRAdkB137 OShoGfN6DVNhnaDuL7Ed XKXsxBlbRnZ7p2D0Wc9W XZcdzba8J7ZvIdbz dHI+CU12JUOoVU50nBDb uTTav6kguCs8IrAtHBNf LIF0rLnxLTfzd8HpPCMh Q65adXFpi4J9XGNk bGx (more content not included)... [facility] Coding Summaryon 10-30-2023 Coding Summary HTMLBase 64 IpcnvbvoGKk1eIs+PGhl YWQ+CL8IHTZsD41mpDXn lV6mE0LYVCyWQmpgXXEM PYhLUkUiuyLfXY4stBFp ZXJu IC8+KS4zESYlJlhtsSSg p0P6iWC5M19frc4gATlk dNE5VGWuKfUdrcmjk9mo iLu5ZQhrYsglTgVx OHLakK61JCK0vG43Gu62 xRTzjNOpu8uloGi7RnZa WYFiBBH1sDgbHZqbm5Jc NXViE72xqVUah8P4 IGNvbGxhcHNlOyBlbXB0 vD5pGWonyhozg9asvfcb Cqs2lj82rIGtf6A0aYA4 B7ClilR1JZOdoGJi HrjcoAAWvH4zdfafg1sk hofzZzUgAQNiCBo5GEy2 RVMavMxdLbKfQI24SKI3 IDYymlEdE2ByPAYt yPlmBhA7n2N4Pd7FA4FD ZvoxB2RZCYPGTDrrnEQ+ VN86pw95C0PzPzwgUga9 IFXuNFL1eVJ3iB3u QYPgRQfxj6H9dOE0Q7Xk utGeiw2mg4yfAULkCWnc W76wcFVrl8X8OXKlbVD4 JCHjkZeyBbWycK39 Oyc+IQRutHcpj7EnIqgj v0aib6cyyTj5JgkwSAGo shAghEqhLPP6c1HrEg1e ADOooKB7tZM5hG3i BmEnQoH5VApgT247NyXb dTDyXhnaT27iW4UbvVK+ PMAuKde7GVAinMwcIT7a C7CtTSOkfdpwdXYe vSfgIK6gBJBtjvwrQYDh oV0nDEEwX8f7MvMgXaO8 OOfyE6HfIHDpltziZl08 mV4iKyDwSoE0UHge S1EzllR3VAGtgFTpDDqk UYU1Q19ms3O8OQQvWBLv URV8pIG6iG7gyIhdhhru bGVmdDsgdmVydGlj JYazZWckH067UPAttDnm PkNvZGluZyBEYXRlOiAg MDYvMjYvMjAyNDwvdGQ+ WQAxDFS2fTlhTYCw hCEoSSqoEi7wfQjaxFuc BG3wQQNmuzebRSWodH5t PFKkhXWwlXqzAT3iBOMf qfwmo523XsHoHYI5 AFGekFXvY5OnzU5aEdLy UBTyJQNlX7NdtSAtUDhc B515THgyPcP8WHPkibJh K9YhGUTatAwhNjC3 s4D4Kp4Kf1YnpdpcQ2Wn eDTuXkEoKqvuUGh0G0Ee PjwvdHI+HJ52WJFtVQ48 COn4BFW9oYhsAKhr SZPoL6ZclE9cGoWsOATf ZGRkOyc+PHRhYmxlIHdp ZHRoPScxMDAlJyBzdHls CN8gDn2xBWGhRGWm yWxkgAVeCvOig6wkXIXr NZxxRU3qgZlcO4ExfCO3 XJDjc6j6Dk53H52iV7Cr dXA+DRLzyXX0fZM3 lT6aKhDtTiV7BLhvG472 ZnIjcXAdJtnjg3dfq5sp yOd6UsM2NCOvhmDngOan IFR2m0SfEf98H92b IHdpZHRoPSIxNSUiIHZh qAyere4ziB7sPe9+PGNv mYE1iEN3oP2zWgEmCrP5 WYoxQ646SiYdxLFw Ltxyr9rfy0zuqHu4HcLn AAVkmmSksPvlCMB4s4Xa Gl64C8GhvFsst7NoByb6 kq61jEAuf1V6jTA6 U3HmYOXeflrmsROnnGxf CC3zBOXghjcyKHLomE6b UMZyS9k6QfTcJfO1DMtt B2WtwmJ9OIHeiQEs LIRxwJIKnR1kypszn6yh xtksVvEuRXFdBIh4FPj4 NHPbuFjbKnGbEHE1ThX2 DID7kOWpxO8sjKyn lqfawT8yJuo+BIT4jUEz eBFOGM8zWhgbeSE+PHRk IYO8qFpvCAcuFMQdkB1l MLFvS7q9TwUhJrN0 CLhrU4AopvV3ZJOiaVBe GSQivJSMtP3vlvfsq4nf vmktMnXyOYCjPWr8LOu7 LWFsaWduOiBsZWZ0 MkJ8OAL5xNDxeL0qeVvq hzgrfX5fAld+QmlydGgg XYL8DGi8A2LfLhi7CGSa zNtzAU6pmHRqIIbg St1hvUbdfYabJP1vPTWc kepne718NwRkw7nyEUSx oWUcPCegKIX4J81pm1X1 AHPeJZLcKDQ4dPD5 yW6nuGoxjeygmOAkwBof moBttMadURmtNGonP795 WGTekEflWtTnHDr0Y0Vh Flf4MBZaqZetBU3s pKYiCGhnLr7tyUyamXve IK6oVCTbkncco762JsPm v4frQLHxiBCuOGwiOHF0 R19zh3D2TMHbYKEf KBB7wEH2gI8reRgxyzio bGVmdDsgdmVydGljYWwt HZbmG797KWKfvQavFmFx xJb4Y9CwOfp8DUId rUwmOV2lfGInSRfkEu1r yKzpkZwzSZ8oRLIwekuz t509VzIfq0zqTWAseVCj ODcwFAS5E76ca9X6 QIJjJPWeUQS5wGW5rF4f bGlnbjogbGVmdDsgdmVy eLawHAteZHisG478LIUf cDsnPlBhdGllbnQg NIjdXCj7S2LwFavkwMN+ TP91QPOxXQ08cXKewASs t6xcrQm4KmKvACWeJCX7 lMplFSiir3DcYJCr Q61cjOPwf0B5FQZbsEjd pHOkOqCyhEE3eT5gZTel aoejq0tbarwxCybja4cn io04gZ74M59uBGjf ZHRoPSIzMCUiIHZhbGln vj0rjO1oFz0+PGNvbCB3 rYW2qU0yBGErQiQ7WVqx D171QdHxfCKjPudx l6xlc6rhdUe2SlE3OWAc zvPdoRrhTCA7w0VcUk06 E47nBTjsFLFrFGYbDUKe QSFuuAhkhf7bkC0t Ii8+EDKiqUB5wKU3jH7a HlOtWyU8SAzqU765VoGn bOJsSlsjG29xR9UmuHU+ NAIuPcd7SBPtvHpl UJ3nlSIwURibVk2eAIJ8 QkJwFwBmFHgyB5MaWWIc azfxaeilgFL4KEJzUKIu vA74Tn2zgQlmSDRr aPTYqA0vckwmk5geaxxg XqXaFKErKNb0JMe8YQOc sXmySaFyIHD1IoP3QWM6 eERpmD8eqZkwhwdx eL5sM6CmXHAiirwcKf44 wD5aRyAtPiS7BRzwBlq+ S4TDKkeyUP6GL5kPLBkz SzwvdGQ+PHRkIHN0 aSmmGNtyODUkaY0sZFCh F6d3LeNsDpM5MFmhE0Ml QQXqbdeaVo69lQ4aJwEp SiX0QVzhI3XbgiS6 BGMxmHCqICxdLRI4Z82a x3E3AYYqZMIiJJC3jSW7 yQ5pyGtlcufaqLNnrPae dmVydGljYWwtYWxp U291XYTltXwrEzFzFjW6 ExL7IwI8C8FrYrb4UNGq wOurLG0osYNhMCzqXt1e zOfaoZosFL6lPJGj hxnrEJOamC3jEJAzoIJe tYcuSO2pGNVktnzzn646 EuDpVVK2NOLkqOAhB1Xn zT7lBxXyEJMiVTIq E4XjuFMhFJptP343TZhq OwS3IKVisfYxR6QoHMKk eEqxKrZ0d0R3Ga98QQOD ZWFyczwvdGQ+PHRk LLZ3sIenYGhfZSAxhK7j IKReE8h0YzHpMyJ2KOrs I4BoNXXirzedQe09bU8z SsCiLoL9FOdvV9Nq fwA0JVDctGAhMVabRYO3 F79nc5D3TWWwLAAbVOY3 uMI3eP7qqEgfhswoxNCx dDsgdmVydGljYWwt BGntY178BVRwzWmdVw4H WYR0W1OmOrn4DHRfyNir WI4uvAZuFMysOs3tbMuw dNlcDK2yQSCawtfg NKUxcU6wRZJzhNXydFgs EW3fTRGxejdli771OqEw XNV6UWJnrLLhV7HjyF2t SpCyWNDoSELzW1Fn mOFvAPnyG654DUwvDdY0 JIDlziOfI2BzCWKatUrm IvW7d0Z7Jt2RRIrhyND+ IR88sf41W3MuByjj Pey1LYAzTPQ9rZM7qO3d OKYbRKrnc7N5gZE9G5Mx kpGtkf6fu0ejMBGiQSqe O53iaTZzy6L2URCq aUM5JVWdlZmpViAyeF10 Oyc+KGCjhKyqp1XuRhqp r5fqr3ialQx3MoRmQRPg kePtxRafIME7k2Ne Ur59H07gDIqgRUEcHTQr HLTgKULxzEqhnp5clN2v Ii8+AFYrtXL9uDD1pF0n EhLzCdH6IDxwQ970 JmMmhOBbEgevj2dde8ay aUe8TrFuZJUluzYahRxn JPX3l5UpId14H2WxhHds t5HhEvy8eb67qIDy y8C7lZB6S5KcGULbobnz tWSydPttKU7dUBIkhidi MZDiuL9hHJXxX6t5MaRk NvQ3PDzyI5XpdmR5 XPUnlDDpJXPxiHGVoR9n nbjmr4eviuitCxFwSQBz POg9IGv1WIXdcFnnZbBv EUB1LsM0GWJ9zQXc eK6mrBspsejmaH2bMhj+ FVl5l6clhJWsOO9gkQO4 GX09OF93pDNyo3V9aEE5 O8AkHBMikknchtgx pOA6ZRZmOQYmuN02Bw7r nRkuFt3nVLYpFAJ0XTBu qQKvC3OxmD5iYzLiPBCs XBBwO9VttMLoQQqw O300XCkpJvY9ATXpntKl X3PvYTYfiFfcYaF8d5Y2 Lp3EFC84KD72RB59eRDx y5T9wDL7V7CrCCLv zedxtcbroWI5YGJcMNEw gG81Ie9tqXlwVa4sSOJd QCL4YZJkxIZvS6TdnV3o UzEqQWFyMVHoO2Ce oKSpIHgnY274JYlcWeX1 JCCkkvUcY2IfGCCefXnu KoW1j6K7Iz8ESx62MW18 CP45gSGwl7L8kWG3 A2VkBWEgqypacfqedSV8 VGNiYXSrfK48Xu5ycKsi Mu3oWLVgRVM9TVQyqUVf N1QtjX9qFoGuYZLi ROQnI4VljGMiDQmsH567 OLyxZyT1HYSjxfHdX6Po PZKlfExlJtS9j8G4Kl4B IZgfhwj8C1OwZsmp dHI+MI63DAVxAV45sYYl oSDcw5cwcBo0EzYjCNSy LYY4iTlwPYltp5XhTWVp O21zcXRca5D5VBCq bGx (more content not included)... [facility] Coding Summary HTMLBase 64 SdykocovWRh9nPf+PGhl YWQ+TA0MMERpJ67lfDNt wA8kG2RFZJpUGkvyLPMX ZPhELcXpkbQfXS9fvPKu ZXJu IC8+KK7uRRIkYdicsUJv p6X2iDH0O95kmi1rWAzw eJV8SHBbYnWkjnrus0pn vEh1WEgxZxbiBoTf EFLguM00YEN7oY27Uc32 jBRgcMRkr3wlmIu3PmSw XABmUVH7aKqiEYmrb9Ak CONxD72dsSLty4C6 IGNvbGxhcHNlOyBlbXB0 cI9xBIkrfustr3mednma Wyz0rm89pSOyb5Q4uLJ9 W8SxorC7OGSzeKIj TjsqeFWCmG3rsxhbe4rz ledaSoBoKCAkDQq4SCs1 CUFxaAkqQrMlZJ35LNW4 IAIebqYzN6WhQBGt zZzlPhL5t5Y6Ep0AO3TP XxfmA5JYGADDRWeicPN+ AJ25kw39Q5JmIrrzWhl2 JCWzDXD0wRV1vP7w IMGdTTdlk1H3uQT8S3Hc bbUopf9vh4qoWTXtOUhk Z98gcEBsm6J4QSSyiXJ9 FCQqxKdeChKrvR75 Oyc+LQFibAppo0HsQeei q5tpy5bhnJe4YqonTHSu fzEmlLbaSPZ1j8DhGa7i GMJgfBB9gJY0pW4r RuFhDsP2KNseL955EmUl sTZhYethH18tN8NkwCV+ EUSuIsa9CNRnkAbgLG8u W1WmISHdnwgyxKYn wDinMR0tKEKbtmweKKFk zN8uLHDsF9c3XnBdBlC9 UMxcO3EzYWNboqvpPk84 qJ1mFjFuRfY8WOjr F9HxioB0EHDwcSVwWJfz MPS3M61ns1N7RAClSEHc LEV4aDX5pO0kxQhzzalv bGVmdDsgdmVydGlj ERroGMayR863EKDvxOmj PkNvZGluZyBEYXRlOiAg MDYvMjYvMjAyNDwvdGQ+ XIWmDPI9iSgdTDSw dENmGClcSs1jkCtptCfi RW7dJXAlbmhkWTZltH6c FDLwmGFhrAkyUV3xQBIs ggnaw415ErOfNPI3 OTEblWXkC0HbhA9uGgRm TAFzNNAsQ7VouHJwZKqi I170IGmkAwH8LZXsesKt M9XwSGXaxFlgNxG5 s3I1Ki1Ww8JcvismJ7Ht cMAmIkCwIyoqNCa3J6Pd PjwvdHI+YW03NDTvIL21 ZXx2OFQ7iZynDDpy GYEtS0BrkS8jXfMuQLNf ZGRkOyc+PHRhYmxlIHdp ZHRoPScxMDAlJyBzdHls XM9mRe1tTNKpRQZl bVmcaUWyIbHzt5vqCLGg RWbaPG0jtPcnA4YjeAH7 SHCvv0u8Ch69G80tO0Ec dXA+KQDisIB9oNI1 tF7qQpYrVaM2YFyxE052 DsQebZFlZpdaq3nwb2js xCt4DpT8FEZcmaWurNjg THZ8u6AnHy65T62s IHdpZHRoPSIxNSUiIHZh lGqfiy9cdN6iOe7+PGNv eUH4zPC1gJ3kMwSkRwU1 AUfeS699XhGkqGJo Ozovo5uye8miaKi2XzXt RLHmzpMwpMwzMIZ8u9Pm Df68A6FylMwuk4BxDco5 sd87rSFdl2B2dYC9 S4LnWGDzfouluQZonQgf UM1tPCVvixevRQYxfN1z PJSdS9k4DqKsXxV0VZbt J0VczfW2HWKttILc NJJgsUPYiO6blksta6vu ithmVqUlUSNyTAx8ECt3 WSMsjLaoIcRxSJY9NzF6 JMP7mAZzxF9whSyz gjpuiP9eAgp+EVZ1pSFm iAKZQA3iGdldkNC+PHRk BCY4mHxfBGnbRABpgU3v NQKaQ6l8SeCrUcO2 FCvbN4TtzsA1CTZnxFIg NCJtjFYEqT4bnxlae7lf dseyAsIwCFTdFIz9FGl6 LWFsaWduOiBsZWZ0 YtH7RTX1pXCqrB2svTci quusrV7gIar+QmlydGgg AAL3JNn1T8HzBrv0FTWt gHuxJO9zrJTqFJij Di1otMrzeYszKI4oFEEf gedge406VmYrh2sjKIQc qQKmPUkvRTO3O40za8Y5 XFBzXGSfUYI3sEH6 eL2qbJlmnepmzCRhoSzf avXjqPscWMotSOxkN982 USNyaDtfKyAiHZz5Y4Ls Bhr5MJZxeYxrLK4u sCZjIUqtDn8uqCqgfOew KF8bKRDfxfcdt082JjAd y2iaVOWpuJFwGQpaQAD4 P67lw3M5NVMbZDQs DNI7qVD4vK9viIybmrge bGVmdDsgdmVydGljYWwt IJnnZ675VHXrbHvgQcOi tNm7V4BwUpm9ZUGg oPpxIO7sbKEyUPauCj1p nRjrkTmoMH3cJJCbcyvw e815AjGyp3wdCALfqOVx VQbfPUH7H72vv5P5 KGUiPKMkIJW6oFM5sL1h bGlnbjogbGVmdDsgdmVy mUncNXmhXYvlW021ZDRj cDsnPlBhdGllbnQg KBtqBTz7S3MoZfddmII+ VT32HMNcJZ37tGEgrGQq r4jhgXt4UoQyOANdSIO9 rRbaKJgkm4YcBPXs E26qxFRgd5N3GWBzrQos iNVtVgPrkUC2yC7yLDsl zubsl9skiutdEldpb7pm nl24aY90B16fQBlt ZHRoPSIzMCUiIHZhbGln qg8cbR7bZr8+PGNvbCB3 gDZ7sN6gGMNtDbW6XMns E045VtRaeUNcRrmw a3uel5jcwWs3EaF2ZWBd woEvrEawXZN0o2ZjYt37 M55kDMuwURAsVCDcATOw XTWheIfxmk1xyF9e Ii8+UVElpCJ1wSC3sI8g EaNjErW4ZUgcF500OmDz nGRoVtabE48uI4NufOW+ XEPzKwo5KVDriGas XR8xbEVlJXxnGz3oAIY2 PuGeUpJbOOujZ9VtQQTt mjbkickkhYO6JBWpKJFd lQ98Cz5qqGthYOWs xQGIxU6ixivdr1vnblly CeHoQOMwZUl5YBf3XZVv pZilXcUcQLK8FnT3VQI3 eTDczF7flKgfmojh kZ7hF0SaEEJhntkhDt11 qY3hKdRrMnN4MYwaMvs+ H4CDYjtyZH3EX4dBDEtf SzwvdGQ+PHRkIHN0 gQpdSCnfFSXzzL2lUQHz S1p3NcWpFrR9ZBflV0Ua BIWqplciBk17pN3oAfOn FcX2CIckD0JemrI2 KUUjpMGbOAmeHPA2C46t l3B7RWJnBKDvPZS0mRQ1 fG2ctSyjziaiiVNajSmi dmVydGljYWwtYWxp N821YOXzcPbzBuAhSkK0 TlK4OtY9Z5CpZkt1DTSc xOxxGV6vfBDxGRliVm8t kDswyEgoPH0qFDXo nsklHRIwqV9xDQBppYKv xWdmUZ2hYWBpuwudh676 EoAvXLN5HADloKZaU0Ve sI5jAzBlBDRrLDVs C1LozHJfGVmoY997VHra XmI3ORVbfyMjU4DsWISk bAheJuG8s4A4En93QFJW ZWFyczwvdGQ+PHRk WTO4aTutTYlsEBUxnH1f XKRuU7i6KjUzGyK0KOwn Z8MiUNElmjrnVa07qT5a NoWvApF7LCukY6Fn obV5WFTlbMKhSAcbDLH6 P79zu4M2IQWaTJZlNUM0 lIH7kU2vnLphwidjfTCn dDsgdmVydGljYWwt BSnvP790WPSgiNfaLw8P AYU5P4EiIfg4OXOzzAre MM9htJZeTJpiOf7mqAsl gPezQW3aINObeiyf VCLdeV2fQSBfaDPxnAaw YJ6nQTRkjvcgc292WnNx RQO0NTEtjWKcR3GuwC5s TeZqRDMrJFBfL5Ce xTDuWRrhX162BJpqCbO0 NUPyjeOzA3RzLUWfgSbn HaA5v9W9Og3AWUaoaUY+ LX90ym79I4OvKfdc Dkm5ACAsLBR0lCB6zP1u ERQnETlvb2N4dBY6Q3Kd ueEgmx7yb8uiYOGtZWmz Z89peEYjy9T6HNGo cJW8KIDelZrqXrKjyZ00 Oyc+RVCarGakf9ThCivm n6nec5iofNe4OpHnQZDl csYfsVmoEDT7t3Le Br12N01jNGaxWQJtTMCo VHGpXABlpDdhsl9ruT4p Ii8+LVEqhJI2nUS8yA3a GlFtHoZ6WLwgY477 ItNqwFZvCbxbb6meu3du bKm6MjSqAGWlxsRetCyu PST0v2WnVx05W0JxqZjh h2XfOqp5dm64eYYp n3M8wKC6I3RkEYSsjuzd oQLltWqjPR0vLSPcvpgi KPRivW9iLRSqX0b3SoHe SyA4GIknA3RkilK2 QNHsfMHjXITgyFLHdX9b shdzi8ipavunBwUoYRGg SAa6QKa4EELnoSwlGfQq CJZ2AbP7NFE4mWAz wD3yiRqktmzbkH5xJxy+ RPg5y1nkwLVbCG6tkNR1 OE04ED73dOKhm1R2oKU1 A5ZvVDKnuygfnurg dOZ5VKIjNNDfdE22Bs9e yTbpEq9aGNAfMCJ6SMAa dTYeQ4NbtB5wXdKoMINa LHMrF7EjdDFgBBhz K688OEhkFcK1ADInqcAl S5LzQGHbgYlaIbB1u8D5 Gq1RRB12WP72UP80uBPl l4J8iZU1W3GuRANg uuabvifsePB3EDCfTBSg bM72Ir6ftQhnQa4rEUXs LRV5JFVvuWSsZ0DnmA0e FtTkAPSpOQRoR7Mu rQWtXFahR492VGmrRvF9 DGLmqdTzS4QrUPEueLzf WzJ9k0C0Bw0NHp12UE97 ID73jJZic7U6uTD9 X3CbTIVhlhnyesxrhCQ4 MCEoZNBpvZ52Ig9laYji Vo0qNKFqCHK4FOXeuGGz N7LimL7zXxBhMYXt LVBkS5WstEDnZXrlI897 LOdwNkY8WLJdjqVqQ8Eq ZPNyaGqvBtU9r8C3Ic9P MNczxpr6S3JxFiyi dHI+IB96MXEaFH66bSVk bAEed8mieNd8MzQaSDCh LTC9rByjFVvik7JwATAj Z12xsSLkq4G8EZKz bGx (more content not included)... [facility] Wound Care Noteon 10-28-2023 Wound Care Note [id number] [facility] [phone] [id number] #1.00[facility] Coding Summaryon 10-16-2023 Coding Summary HTMLBase 64 LwxsykebNEw3rPe+PGhl YWQ+FH5WOYEoY49dlABd sI8zY4SCLWjUGejnVQDS TSfXQbAqspZgGF8zyFMk ZXJu IC8+PZ5vQRWyNelrsOVf p3W6jNW6E84hng5vRFml pUZ5DIXqMeHipejaa6lx iUp6PIttTbjgFqXl QHYynZ01AAB2oA21Qp98 rKFgmWKwx5ljiOb7OzRg FLLzIBB3nPvpNBqea3Yf BNEjY82apZOwe5T2 IGNvbGxhcHNlOyBlbXB0 gC9pRAhtxxwcv0jttuxz Qku7uo80qPFzy9Z6uPZ1 D1FbpqG2BAKzaWIc CxhdcKEMmM0kcfogv9tn djdwNcGlCZXwLZe0UPp2 KMPrsYggRkHaHS15SKL5 UANeojYtR0RkEMTh rTgmJeJ4v5O3Gv5MG3EA SpygN5NLZYPLVVyfnJL+ PR63rb83M1InJgwgOyi7 ZQJvOCF3qGN9aD3q SHPtQLptg5K3xGQ5Z3Ad urUnlo6jw0siBTBoQLzi N06ehIEze0J1JURkwTK0 DPPtmMmsMxBatA82 Oyc+FJSzsDrou0RqMlbf a8bgj4qvsBs4EifeDHSs aoOmbJviJEH7f9MlBn4m JJHteBW6mTW2aV2r LyGzSnV4RCqkQ135VqNl fHOqFtmeA76jN0AzbHY+ XIGwYod5GRGjdHteBG6t Q6XtYIEfqahixLIa bOiuKD5sGXCbhoekWNOo fU9uNZPkS3e7HzBpJrZ9 KWoxV6BySJHtdcsjAr64 tS9cFdCyOpW0HElc R6ElvrU6RMCciMCeGUgv EIJ2W37qg7V1JCXdFQEu KNZ8oDW4nT7ljYedjywv bGVmdDsgdmVydGlj BLcnQKwaV157ZIRkoSif PkNvZGluZyBEYXRlOiAg MDYvMTIvMjAyNDwvdGQ+ IFJuAFV6gVvePVIx zTLcCIflTg8ioVempSeo KB6sDGVsqxfeBRXzcN0c OKKfpTSbgCgsUY4bMCIg nzeyj180BnUyGFX5 GCSckNBxY6HlfU1kYxXo MRBiMTVfE8VefBScMWoo V570WRtyMwK5DPZneyHo X0LfTDOzcMbeYyG1 o1X6Nn3Hi3NypftvW3Ai vDGjZaGeDfcwHZe7M0Kc PjwvdHI+EW42FEKeXD78 KBb5QMP8tGubWWez WUBuY2OaoD0cDqAxHJCz ZGRkOyc+PHRhYmxlIHdp ZHRoPScxMDAlJyBzdHls LL2zJr2aZCLmIDCq gHmvkPSsFwZfp6yrDAWj TCosCA1jjZmaP8KmaVX3 HPKhs4a7Vx00M69jR1Bp dXA+WHMbpGW0iHR3 zS2oJkGwIvW3ATduV893 FyZuoMHuOqqge8vll9hc nPd4JpK2WWEgmoAxxJtz RRB8g3WpUc50S95x IHdpZHRoPSIxNSUiIHZh tBrbja3cxU3hPb2+PGNv cTX9nMM1vA0wElZaUbQ4 CKoaN981RnKmbMIg Lkqxj2gym8bkuUv5VqXp ZSEtqiFuxXduCVD1m4Tu Kz87Z8RioJcln6QwTsr1 bf84cOIgu5H0vYV8 S8UxEXUxztaweOJtnOyn SL7kEECfxsszSOPboP8a YEGoF1t7GqLtMrX6BWzv X0SoihH1HHPxbSGo BHVbtHSMxV6enibdi8ds kikiQfElFPXuFTf0ITt3 MKDokBzaIaZhRFJ7IbI3 BYY4sLFnlJ5ucOyb yzlwxS5sYio+AAC4mANx uZLAKO2lNutwcJX+PHRk LYG1oAjtZUemGLJskD4j TIKvA4g2ShPyNhK6 EEcmT7CuohN3SGEfaJAj AZPciYVKnC4cdobys6ep sxywIhMpQGAuNWs3ETv0 LWFsaWduOiBsZWZ0 CbU4TPW5oNVlcE3huLht ieylzM0xBoi+QmlydGgg MQT4VNe7F6BfKyc0TYEg eHsbFV7wgJAiQIiz Tq8bhOgqnEndLA6xSLTp cksrn148YiRgg3uwTDKg xJLnTMnfRON3R04ct4N1 HVPoWRBpUUO7xYX1 hS4elEhpitvbdKCziKzl uzAsvIgbRAsfEWshX337 XMCxjWylJtEvHXb8L9Gp Vvz5UFAszRaoIH0a bOJnFJizHa3znUmztLlq OZ2vPVYkyuibw486SkEd m1pzAGBbtIDuVVqnEFO7 O49xh3C1SEWqXWBf KPK9pMH4kR2coFqssroz bGVmdDsgdmVydGljYWwt AFskU169ZRJldPikQzIo lLi6Y7IkXfl5YZJx nBkuOQ3peSKbNBuwFe6t zTlmdRzjEQ6iLPEtzctu p372PjJtk3wfTIDxvIOz JUmaZLS1O35ht5M3 NYUiCXJxJUW5bNG6rQ7h bGlnbjogbGVmdDsgdmVy nYktLKcdVQbpH997LPOu cDsnPlBhdGllbnQg BQiqCRq5I6PaAjdoeMH+ DL28ARKuJL59oKEnyITm a9yppEu6JiLgJUDnVBW4 cFbfXLppl6ZjTSGo D21dgMCed8L2TVUprJwp mWNqJpDsnJQ4jR0bAIqs mpgpr5kxzsjcThvdu8zh cw11qP02J23nUHii ZHRoPSIzMCUiIHZhbGln vu8rtS7tRp9+PGNvbCB3 cDH5qQ5iQKAtAxI5FRpd Q683ChLurHDyHlls u5anq8oaeEs3PlF3MYSo oyNkzDocONK7l7ZpJd82 R94sVGkiZSTkHBRnYHKh QFToyZvyvu8aqV2l Ii8+OCQttHV4eOS0nR0w ThImGtE3JTvhO903OaEu cZNhBohdP19dW2VdiTZ+ ABSmKzq0NXYspEpo PJ1hsANiWIgbVg8dIAL4 BkWiToXfNWjnN1LiVGGc cttbheypuKG1KQDcMOJa qT03Kh1pwTwmGCVk eZLBdK8spfhqs9huqhtt QhBtLIPbXBx4PMa0SLWz nRbfAcOdFKK6BfS5INP1 pSDchC1dqXoeppsr gT0jX3XgSKDjcoayGg53 dZ6vSrSeCoC7BNtzCfa+ M2KQDcbxFH9KL6cRLHww SzwvdGQ+PHRkIHN0 mEqeFAumVMJalF6qGXNa X4d1DbOsRlL6UWbzE4Pv PHGuucxvJy79lP4zNdNi RjP9BKprZ9VomeP3 XLYpqVIhRLohEZU2O01u r5P6PVFiZFYfRPT5tWJ6 qW4djCeacuvqzKVygCwf dmVydGljYWwtYWxp Q467UUPspGmwBdWbGwW2 PxM7AmA8Q8GgUvf5NPPw mXknEN8alBYlQHqkBi3d fIftuOuiJB4uYMZv pzezEULytM0lZPCieJCq wUiwAZ4tJGPbunmkt683 BdFjNYN9WKYybHBeH4Mx yV0lCnBsGFQsFNZo G5MyvJTyKAmnJ907ECcq SuC7RHJfqvLaH3KoGBHl hEiqWmH5g6P2Kw81SMCC ZWFyczwvdGQ+PHRk ZUK6fKpuLShkYYSblE4v OYSxW8v9RfMlSrJ5TVuz R1AdRDFmwkzpTk06xQ4y KgCbQfR4CBngK0Rj jgY9UKPjdUMiEBilLNM0 T04nz3H3KQErGHSfRLM4 iDA0gA7qoClchyjurTPb dDsgdmVydGljYWwt XNgdS615BTXbrHgvPs0Y AEU7B3UpCzw5PSDzuRrb YD6cvKZyCDjsMx5kqJti yEpeYE7lHARocyjl EGDtbZ1bVIBimEYtjTgi DO0kRYFsxzsvp377OpXl LVU2IJOgrYXqL1UrhU3a ErZfEVBgIPIbJ0Na sIRzZXgiP358NNtgZsO5 VMIagfWfJ0OkBHEzkGru DpZ3r7W7Ic7HCFjzmAN+ IR35df87I6BaJwoy Ztr1VOHtKNL4wJO6fU3p HMThWPxgs8K1kQH5Y0Xg xbRvvc1dt2pgKLOlITgm G18iqTAuh6M1NCRn sDV5NPJgtHzeDjLjqR00 Oyc+UHDdfXvmi5YtTvqe u2erv4vadEp2UaNqXQHu dkXilDdwVQM3u7Ok Pw00C65sAUlbALJuBLHe RKIgTPFseChhew0lwG8j Ii8+DYIyoBG3cFX5nC3y FgKhTnC9JOktX825 ItKurJTeMbbnv0xci0fi tVb4AjObKVKfqtKoyNgb PTG1z1MaEj06S5UjeGmd s3TlWzg1ng86zWWk h0I3kZF6D9SoQWVsrisw nVCxnQvsIQ7xXNXwwdws BPHecI4jEEYaD2c6UuVc KuD4FGyxA1UqslE7 OOSufQUwXMRitVADmJ2q nsmkg4uogduxUwHlMSXc NDu1DOc1GARyxYfpZeOr AKL7HsI0QRV9gNRw dB9elUmwrbnsoN7kPef+ UXq3q8klmQXnLF6azWP4 QV26LZ27dEWgd7V5hAZ8 F3WmVXIecwgakmwn bHK0SHIvXKYlbD19Oy0a iCrdRt5kZUJwTJG8UBIt xQBvM1OyaB0xXyAbXRMa HGKsN6BfpVFaMXdv F199KAnpKrG2RNLiivCs W9GdMNHhnShiDnO7p0M3 Ul2PDL54BA64VK71aCEm a9V5pRT6P1KrHLXn ztizvzrilCV4YZCaEKLw tP88Rm3okWwuLs2sJPUh FZU4JBKenVGiV9LrdK5b IiJtFRHiNUHhK7Rb mRJdOIwdB012SLliWbZ3 WKOidoCkA3ZgPHDjuYtc BpM4k7E7Ex4TNm17LI96 QK05bRRyo3P1wCE7 J2HiQEHljxfbjdonwRQ4 DSTkBDJtdN94Me6xkEqy In9sZZBpIPS1NNRglBUf Z9DwnB3eJjLyCJIw SPDpJ2LwdFChDVhkN298 XIupZmK1XLDrhcFbF5Ez JKKvqXsdTpH1s9B4Ar8Z SKnapcy2B3SqCvmy dHI+AW62XWXaSB98zSOv fHDdd9sogJs1PqUnWOVr CPI7kSmbYHblg7ByQBEt F34okBAvu0F5MRMf bGx (more content not included)... [facility] Coding Summary HTMLBase 64 ZstuzvwfAVq9yJw+PGhl YWQ+SR5LDWGiV47qoTHv tP3dK6KFWVhUWtzhICEY HBfAFbCxrjHjZC0iwAPe ZXJu IC8+LU3iKTCjXgnriUQo g1D8cOS5B26vfe2oVCgc oRG8QFCiFnNgjfrbj6xs vTc4NNubObwoThQn KBHscO60WSU9mT12Vp98 oYDepTJff0lrhLm7YtNe DSCjYHA4xUboPYnxq6Ug QUDtL55nqJXsl2U6 IGNvbGxhcHNlOyBlbXB0 jN1tEAtgmypec7vvbmxr Qen5zy66pOKhx8Z3oNV4 Q2CcrkU8OHTfyQTv LrifmGLTaT0nubkgq7qw idugNlIqOUZmDGu0XYy0 QABhtLdqUzPcBA49WSB0 BCKgzkIwT5WuKUDj vDlaJrJ7j2R6Cq9MI5BK EtjyQ9QZGQPCWGeigQY+ SF67xl24N3IiQaatIbf3 UKOkTVU9pII7oS0e ZONjPUxqw9Y1cRW7T2Gh dpXzhb7rr8tsTGStTTuj Z42rdFFqr9S2XQLuwJV0 MGFxdFdhBlMnhX39 Oyc+FNFleOide8BnVjgi q2msp1dakOb2NhaeANTf ihIqrAnxNXE3i0XrBv8l BKXwcKI5nLM6sU8w QkQgGoD3NEjwZ371UzSa mPDqChllQ43aN8YyuMZ+ TIUfIsa3YLDckAlbKU9a A3TzJPQtxeyzjMAx cSplKY1dGYOddnlbDHOw rU5zKFTkG8m7TkUsGjS5 VSjvH7QhKDHslqszYd24 wR9qUqQfGtI9KSpb T1FqkjV0HWLotYCsPAre WRN6H97rw6B4GSAgSZTk MTV4lKU7bA5xpQerbdnc bGVmdDsgdmVydGlj YCmaPKeiR197ZIXipCic PkNvZGluZyBEYXRlOiAg MDYvMTIvMjAyNDwvdGQ+ MFWpUBR0gNpfLDUt dIViMWphTg9krIhkgYon OJ5jWSCclyphLWGztX3n QHFzvUVukYhhTZ7kOZIw nnrue738ZtFaTNI4 FMFvyRFxK2EczR0yCuFo LREwWNHiX6BmgVGiQXnc B714TIcyYuG3TXAcmyDc O6UkOBEwfXybJqK9 p2C6Ny7Jw2JwfbfxF7Ty rDJkPrPyQuyiIAt4S4Qu PjwvdHI+IJ99SSDyNB08 JTd0XOP4pUrvTDsy BQPsZ9XoeD3vEtEaSRBf ZGRkOyc+PHRhYmxlIHdp ZHRoPScxMDAlJyBzdHls MI5uBv3zVNQcWIMx tGqmdUQgQiMyo6dpGZSf DDmbGZ6oePnoH1WccXV8 DQJbq7x3Yx54B64lU4Mc dXA+WMBzoUE3vNL3 fT7rHcRpRlZ4MPdvD026 NjYaqBFfJcfda1evl6yu eQm5VsR3ELMcuuSwpPkr SUK8e1LaNz92F12k IHdpZHRoPSIxNSUiIHZh ePebxj4mtG0cFh2+PGNv pZQ7vFY2wA0pKzYrScC8 LJquE766DwBkfOPk Iuily7urh1ulmGv0ImMs RSOkvrSklBoiRTV2g8Vo Zy18A0KtiLdja0TgDlz8 id01mIZtw9V9oSG1 D0DmUJYtybvgnUCluDkn MG4eHMGgzhvlQEWqmL1s RSRoO0a5ItIuWdD9PZzo W6FtgqO5CTUtcZQq QITheXEOiE2lppnvi4ty hqkwKvHjWJNwPOf3HWv0 EQVjqAikOrKiILU9IiN6 QOA5kZHrnY8wwPoj jqxjdX8rEqa+JZI6tDHh mTGKEU1tKbqikRY+PHRk DNA1aFarCZyiNGLraI6a KZVnH4v7XgOxOlK8 QPkcW8OpnhZ8SIPwgPIo GSCcwZENzE1fmzhud9or ffokIqPlKDKoTCd6VNw0 LWFsaWduOiBsZWZ0 HyJ4QDK3lTQpkK6mbTpy iiyklQ7vQkb+QmlydGgg XWF8NIn3Z2HtJlh4FJPk bWhsHO2jkUCuUZse Qn7euMutjRukNW4fVNUn iesux271BxRma9plIBGh eXKkCDhtNZT4U35ww6V0 XYDfCLCkJKQ0iQR7 eG8xrMoltfwoeIXdsKlh rzTsuNtdALhwZUjxZ627 CYHozPfdYaUvKLb1W5Bb Bdg2XSRwnIcaAW9h eFJrQJfdUa4vsJhbhNrj SZ1gAAWpnnbft487EfCw g5udWXOuoLRzYAazXCU8 T32xo4V6DMXjVHYe DIE3zNS1jU9loVrkzubl bGVmdDsgdmVydGljYWwt YUbuN841KDFqqLssBvMb zSt6O1OyRuj9ETBa tCgoFM7vrCSrFUzdNk7z zXfbnSwmUI6pXVLhgmsk v530ItDnb5uxYZNjlHPg PHojCUK1U44yp4Q2 FLNyDFSmMXF1jOG9oT7x bGlnbjogbGVmdDsgdmVy eGluFEggEItoE234BDNd cDsnPlBhdGllbnQg ANbqUCo1I6JsBispaTC+ GS10HDIeBL60yBBcvTOr d8nnfQd2YyEzKHMkNZK3 yZfkWDqri2SmXFLt O82guRVlz5I0OYXelCvx rAYbUhNgwWP4jT2jESpe dhvuc2mszwqePdtpa5hx vy12qL34U14oUMur ZHRoPSIzMCUiIHZhbGln gz1muZ8gAf9+PGNvbCB3 yUP8iZ0dOBPmKlF9DZoh C747XbZtsMKvClmu b8sra3pmpLu0TcS1GJXb efTkuRxgTGE8y1UnTy42 Y06gSFzoTLYlIOZnAJHs UTSmfPtlga2crG1s Ii8+YYWhuTV4pRO5tK4c WqIhBlA7OXdbD702RlLp xJQdTfxzL17hB4ApzXU+ GSPjDex2SGWsaJbo TC9tvDPdCDtkBa4eJZM0 NcNkCmRoJXjtX6TeOOEs hnpchhdfzZL0KFWtGVNb pK35Ig5tzHmsYODb sKGIzV3yjxxoo6ixgqtm NlFeVEBwJOk2TGw0KKAz xChuZlHyEYJ5RzQ4KJT0 sCWpuY9wuOhnefah lX4mH2KpRVDelgvxIt79 mP3mEfMiUuK7DOjqQfj+ E2MRRtlrMD3VC8tLZWzq SzwvdGQ+PHRkIHN0 hJhzGZzbMINwpJ4hYZHi B4f2LvUoXbM3VTneD7Od HGOhlktmTw13nG2zBeXz UrP9QVdhB2RworZ5 KZEkdORmAZgyHHO3C13k p5H1YYBdQMIkCWA4mDM1 hB7iiKtgaejgaZPqlKgv dmVydGljYWwtYWxp S184KEHnvWvcWxKeEvJ3 TnH3WeY0X0NxPha0UBVv tGbeQK9oyTNjHJeaFq8b gFhxpDszZL7vBUAo qojkLRGktC6fKOGzgLQl qQhaTF1dVWYrnsdid765 GvNzLSC2TJNkbUUnR5Sk nH4pJyNuYGDeCEKl X1LldHUtTPxvA743URvk PzA8XKQduuClV3KhMWWe fEcoJyZ0m4G0Ln49LNHA ZWFyczwvdGQ+PHRk TER7xXhwKFepYABgmJ0i CNYeQ1m3JnDuItU8AIky T9ReECIjuqiyGb17fO8l SvZwEgX4UXugS7Zq hiG5YZHjnEVxZXzwSHQ7 S26yg1I4UTMjXYDqYWD2 zNN9zT6wySgxqyvttSEo dDsgdmVydGljYWwt NQrnA048JCElfAmcDd2I JRF4Q1IsGgu2TKIfeEyu XW9ziJXfQQreJk7moCjl hDmmUN6zMGVbiwwd LIEvgG5xPWQalNIyaUar XS0gBFXdigvtn389GdTn SFF7FUZihVTuK3ZyfU6w CsHjAMXfWRPaA8Bq tUCyWKycL514FNthJdU5 IIUwtwIiI2AnRINqgIah OuR0f5V3Sa0SDLhcoSE+ YW09zs72X7VnFaex Wbf5VNUiOCQ9xOM3kF8k CZRrTDzgr1Y8sYL1K9Dl jrFwky7xj1upQTKoDAot C19jlLAzh4D4UAUu nZS3KWIqmFsaWwFrjB36 Oyc+CKQsvDqdk7ZdNirn f0yhj9fonTg6HoXzLYHt gjIjcFzyHZJ6r0Fk Ag61E56cWBsuCLDkBUJx SVUpUETshVvtya7krE6o Ii8+AOFnxEX5cLV7aB5t PqHqFiZ2JTosS794 LoQzzEEyEcaim9ufy8kw fKr7IiKfPNPriwKicLle GXK3n3OuLy25C4YzqYvs k5RaLla7jm81iLXm f0E7wKP5V7LeYLXjuoqo fGSbkAvqFP5rBPQsijke LGWocH6uOEShY2s5LkJh CiZ6PLrwL2LpduU7 LXBupZPyZDJagDUFwU5f ferqe8lrsagxNlBnGJCu XCy0FWf7WHUrqBoeNiOx NJB0RbW5JLN8pBVw vZ5pzGnzqovxbO6bZpe+ IRo2p8nzhLUuID1peDM8 FL27BG04gEEqf9D8dSR6 M9IaUYIqbfakkkhb cMC5CANmNJKbeJ31Wa3x uOigEi8hUBDkTZI7CUHd sMRwT7AjuG5mMnTrVIZb VVAmX5CrqDCdRJal Y377UGlwIiU5WXXnidVv S8RbFLLnoXiaBrD0a8D7 Qd7NVE38SN59TB43hQBn z3T1tJH5D2XeYMAm qcpiyhqsaBV8OCLqKVIl xJ29Ii0edOqjUq6aWHEg BMQ7GWOkfGAgW8PijJ7g MrWlRWClWYBgH0Vo sKVtIDihU684XAeqGfL5 KBRlsuSwW1NtBIDxdWse SyW2x1B9Li2WNb60KS66 VR86kOVdx9U6pDL2 V5TgZOTcbmsibhsoyBP6 OKFfALLryU31Ii6haTdp Km3yOGOyETZ4MMSvzJBc M5QquL5kVtObKXJt MYMiZ9FufJYlWInuX371 NFfwErN0NCElbvKfY2Yu HTZtgTgqErW1h7M8Lg4C GCfogvp6F2ReMove dHI+JH50NXOoMX94xDAl hHDte1fjnOh2BsHuRIMl PXE4wWyjUUggw1BfQVPz C53ytDJmh0A9WIXj bGx (more content not included)... [facility] Wound Care Noteon 10-14-2023 Wound Care Note [phone] [id number] [email or web address] [facility] Coding Summaryon 10-09-2023 Coding Summary HTMLBase 64 NxqjddcbASp9lIz+PGhl YWQ+MW2DGXOuE76xaLYz zA9xN7UKXOaAGrwrEQCF QEhZHqWtezZyQA0jsFDq ZXJu IC8+FZ9hKRWsQftsuPCf i6S8qMT4K96vkm5vMNoj bJL8DGCdEyPxqkazb2uj dDb8LFgoLvmuQfBh PDXguC70YFG7lU33Bu33 vCFriWKcv8prbUz7IqQk CJHvKTL2eOckVFhtg3Ud NRCmC90owFXrk0F9 IGNvbGxhcHNlOyBlbXB0 oT1wUKrgifoim5mzefeu Xyk2rr18gDQvi1K1kTA7 I3VjbwT7EVVviTWq SuwzgANTkE2bqkcpm2nv wkdbDpHpUNVaULz7OXt7 EYKfbTqlGdEwTQ43VMW6 KKLdakVzB0EgBCJc gEaeGlZ8a1Y4Mt6JS1DS QrthR7FNWJCACChatXH+ AS91gy05N1ShSapqTbp9 VOMzCIG1lAR5cY6r SAUwAZghr4K5iXC9S7Cs wcUyqb3qy0ejDWPjDAdb Y33goYHzj5Y4ICYeuUF4 UAWnvPwoMxGgeS50 Oyc+IASqgKpaf0UnUxas j2kwd3sjpRf7EkpgRZXo dnZteSxpFIF4s5ApIy4z NGTjrKI5lWZ9eA6k CrWcFhJ2SXbsT577PuJy fBSbTsigN24gE2PzbSN+ VGMzQiv5PHKwsGleRY9n O2WaFRYuoggxyKYe vFvpAH8bPMIlvvnoMQGb lZ8vDNAdM2f8ZlJpRaY7 UOrrB1RcGLYqyhguCm05 vD2bXpHqAzG9UVue T4SjbgT0UEXrkVJlAWxb OVJ3J12ib5S5GBBvYGVz KHU6yDU8gF5fzGgkjsat bGVmdDsgdmVydGlj PZdtJTpgE141XOVwzKyw PkNvZGluZyBEYXRlOiAg MDYvMDUvMjAyNDwvdGQ+ YTCeJKM6mJzxRVGj bERxGOruVg3iiQxseJli SP8dECIvymtkFKCxyW4v IGSlxMEfmGksYM2dSZSp aiezv433MkIkOER7 TDDvhJDcB8LcrH6uDoIl ZSKrVDDdM1NgjSQvSEsu O117ZLnxTsZ2VDRaqxEa Y0EeZCXomCekOrD1 z8O2Nk4Rr2SrbwdaW4Dy cWBcYpVrNqfiMGl4Z5Ya PjwvdHI+XV57GZKxYK15 WAd9MFJ0xVbdSBzi KKPrO2EvxA1sAaSfKBYh ZGRkOyc+PHRhYmxlIHdp ZHRoPScxMDAlJyBzdHls RC4gZe3hRBXqGTSo sNaxuUChRyLfl0keNPGn QHfgHK7gqEdyV1YatIG9 JMJxa9e1Pl63J66jW3Jb dXA+ZNQziMG1zUT0 aE7tMoBcTrA9CEqhY855 ZiXzmQUoHsdrp3ylp0cn rKp7ZeZ5CIQccbZawUts CVK6q1CeJw46B27u IHdpZHRoPSIxNSUiIHZh jPzqhq7rmL8pAb4+PGNv aOW5dAS5qQ9vPgHuQzF8 FUoxJ010JdPsgDMe Lwkom1isj7pibVu1FyGb IBThefKysMuuQNR3f5Ax Hx14A5VtwTqxu8TdRax9 by29iZTdz1A2lDN2 R6RrUVGtyohuiEVuzCkg HM0lEKFpridtIKBcrL8w SOBhK5c9RfIjIvG6FFzl A1QeafP0QLFvfFIv VQPiwAIFfO9soemew6qb zqjrDkZrJFDvQFz4TAx8 QNXutLrpJyUbHLT6ZzE4 EYZ2iPVgwC7zwJdn abspsW9tEnp+FAW7aWSa xCIZSG3jAcnvvZV+PHRk BCG1bNxmSNomSPYdnR8o RKJmE2q0YqCgReP7 OMqhT1CakvF4GIIjuDLj ULYllTMHtQ5pmgvcn1az hepmPcSfWIEbRZm4JBr1 LWFsaWduOiBsZWZ0 AqM7EVT9sUIcfY9qpRsa ypakuL0hEtn+QmlydGgg SVI0SIh0V8LrImd2QROo bFxbAW0xqZJuHKoe Ei7qlBrlxOgeUK7mCASi gouup224FgBmy2vnIIYz lHTaZIyxNEL3D10sl5B0 FKEyOMMpSIM0gLF4 vJ4ptKbhcrwkuJNhtQmq osUfzIeuVSyfKHzeL716 AKVteDtoSrVtWKi0M0Pd Vvt7TBSyhQoaVY0l wEDyRJyzWk4myHzrnOte LV5tMKZwlcpbx655RbCo d2gcFTXxsYNgLGijGJC3 O13pl6N0WKZqTFNh ZHM2kLW8wX2qvJralwqq bGVmdDsgdmVydGljYWwt YDvcH407PPGocNulXbSn fFf4K9XkEzy7VFHo tPidNO2ghDFgGLjuNa4m fUwcnSbmKT8jNAZswvel h949AnJnz4sfLGQqtQKs IOrcFTE0C49oc9R6 VZKhMDQaZAC5pSQ6wC5w bGlnbjogbGVmdDsgdmVy oKttEBozUKgmL796NPPp cDsnPlBhdGllbnQg YSrgKKr9Y6MsLwvxnRE+ ZR62HVUfUM83kEBjfOOy v0nkqSb8TuAjKRXeTKP4 fIkvENczo6JqKHGl N10jzFQxz1E3WSUhpQsl pYSwXgDwmEA9jX8lATky xszng1fwldvtEosed8cm ps40lS55G52ySYdk ZHRoPSIzMCUiIHZhbGln ny6nbF8dCg2+PGNvbCB3 dSS9hG3sRLWiDbF6IUou D257VdCmrPQoYkpk w7mko0demKw1FbL7BWWf kbMnfRwcHEM9b3XoCk76 P20xSWhmAEMfVOVwXQKm SLMwdBxbnj1fdL6v Ii8+AAUckIL1uXJ6cE8n CcHyJnL2AUubR930HiIj eUPuJvvlJ22sG5KmhPG+ JVRzCsr9QPQovQye ZT5kpBFzVPzaQd5aYLV2 YqIpUxPdMYbqC8VnAGHd fzditpjdoNY5YNEqKTLo rC54Sj6pwYfmTKAf cBCElC5wqpjiy7raaegr DiMlFTJvWAq2KUu2UYVy rPnuFuUwINJ4NjY7YQR6 iGGgvU6gyFlhbrcx dJ6eW9ZkSXMfwbgdZd02 bJ4mMgQjRaR6GQofWfq+ T0RJMwgfUA8PT1eBWGzd SzwvdGQ+PHRkIHN0 vZjeYRhjVYAjpR0nBOEg Z7b2QyUjVbO1PKrxB0Nm JVJygvkeHr82oM1mGoTo VgT0GOpkL4DvqnA2 IGQolXTjIDvsWPI7K93p c1A9EUVxHQFbTXP1rXT7 nC4niHgchpfotVZrcRam dmVydGljYWwtYWxp Y478EQLadIjkEnNyMgX8 RwS9GwV1N8SgGgo5CESy aDpdRX8xpPNjAFauUh3w qMqscOrzVU6pYRTt ajmwJWVicK8bBERvnGWu nHegNT4iROYeqhxmh715 VdIcUDI5BZTieKEdA9Ye nF0yFlKgUCOmXRPn O4AphPLzAOauP844LCtz IuI7SZEegvWyD1ZkZZTt yTvlYbH5h8Y6Ym77TQDM ZWFyczwvdGQ+PHRk VSE7gCuoSBulJQTafO7h FUExW4x6NnCwAuD9KOoi H8UuECYzwxniQt61sX9m AfYgTmY8ZQdhX3Xn snE8JPEmgYLlCBwsXMC7 H58lg4Y4PKMxJPYuLCN9 nNK3xV2nnEqjqosixWYi dDsgdmVydGljYWwt ZKbrY007ALSaqObyFb4S DNV8J4WaWkf0ZYQzzNht BH2imLXnBCnrSl9cnFmc kUmbJK9gQLQglpef WVLqtN7oPIGqaOOaqHqt ER2aMTTngdmai233OzMr OVD4SWVtxHSyM3CznW6o UyThIXNrMIUnV4Rl eERbZYwiA932ISjiAoT7 OJCrjsYoH3NsDJVprIdh XuQ9s6F9Bu0VMHnblBA+ KG89zs67E7IeIpnr Nia3IKEdWCI5uIE7nZ9m PDJwVYbix0U4uRV3G4Mb evZunb5fz4gwRTQkJQej P02tnFFiy8U4OFBa jAJ2FWWcnYrxAdUamC72 Oyc+KVRuiAmnq3IuYukg p4snu4scgWx3JzWdLRPg bgQekUajQXZ0q9Se Vn38W60eARsyDMMrBZRl KVUzWOEhaHmjsd4wwL3q Ii8+OVAmiPO3yOF0nT6v JzEkQqV7XJqaB292 YlRijRPhJpdoo8mkd9hm cAn1IkAwMKBthjArtDqk XNI9i6XfSv96X8RtiDqf a0XrHem3nl29vSIm z0H7eHE1U6KtRNXxdafy mZDldZilGR9yHRDphggj OURlvI2eFIDyQ5p8RuKj BkP7WTpzG4MlugS0 VXKwzMZhWAXcgAYUrZ2u ubiuj1bxhrefCiHaKHNv HFw5FWc4PVFsbQccPgMc WWX0DpD6BNZ3zLLi tO8dfMdzrleubQ5kEbd+ OUy4p3yauZVfKV8clAE1 PE52JP65pDLcr4F7yKO0 J4OrSECeoofekevt gLG9LGAiDYVkmN25Yq6x kJshFh9zIXLxNSB2TKOq jTWsI0TffL5zYyYkGCHv SEXiS8HbrVSyOSon V313NTsbAiQ0XJUbneHb I9CbKIZcxVuqLbV1e8Y6 Xu3IXU98FO93IJ30fCBe a6M2iXJ4F1YrPTYo ykepjjjuyPY7ZEJdFHFc vF54Cd5hqFylFn9gPRVi GOB3RZWjdHLrU3ZwfW2o YfPfAKTzWJVtX9Gf fZTcHTsdV405PQlbOiI7 OJDpnxBrI1DoMQJynUlx KbJ0g7J3Bp9LVa70KI22 DG34hOSmn7I4eUE2 I3GkVBIvzeuohwvttZK0 LWOhMYJvfO14Zv6mfXsa Ot6gKBLeRGR2BDZfaVBv G5CnyT6zWzFtWOEe WEOxX2PijQZeATdvH050 YNynKkZ7HASbumLeR9Pk FVZghNxeWhF4w3J2Ja5S AMuoxkt4M1OpJhid dHI+UQ51BWToAQ16jAJr lWJjc9vdfCd0VjPoTPGz NQX9bMkmFDbzc2OaMLCp V85feXFyp5O4FGCw bGx (more content not included)... [facility] Coding Summary HTMLBase 64 BivukcjwWLk0tCd+PGhl YWQ+CA3ELYKoE42hsCPt jA4lK9FUMGrBGxleTJZX YSmUTpGkgiInPG3zfXSa ZXJu IC8+JF2iVMExRuyrtTSi c9O6hQU7J91dhl4pLVbm oBO1XYQcQaHjvhbtk5le oFj9DPzaMjdiZpSr LWArlZ53DVE7eW30Ki48 zMFoyLOoc9mvsVf1OkJv GMFfNER2cOzxQUrxl2Uj ELAwL43eiYSto4S6 IGNvbGxhcHNlOyBlbXB0 rR5xGEtntzsqe9bobqtw Ekw1yc02sZHls5P7pAY6 O3YfbbD3LGPimLMg CdnxmLRWfU3ogpzwg9ud nglgFsJrGMMiJZa4GHj4 VHJzbEeyAdNrAB69AIH3 VXVcvuZvX2KjQUIh bMlaBgE1x7M1Aj9YQ8IO DoegA7ZKOJEVEWlsqYV+ CC96iz09G6YvPuyqRya3 GUJtDPX0qKZ5gL8v KDHiTXyjg2R6qPG0D7Mw fsTdcd6zb5yaHMJqXJcl O58uvRLkg9P3UVImrDK1 XGEgwIplVeXgvJ71 Oyc+WKZzsFuur6TzWhxb o4abf7lrpTi6ElusIEAm gfJvgWpkMQT6n7KeVj6i EVBhuIO8yXC5gC6t IeXoZjN5VSmqP179BiOb tYBkWhzhZ96wH1IwiIC+ XBCkNop6GAZejWhhXB8j E6GwOITferszbRPk zHrvLK5sZTAyhbosLBIv hG0cYHRjG5i0GgPfXuQ2 BLxhH7AkXRItsiseEx44 oX3tDyPuErK2FQno M8HzuhV7ULLpwTGzAVkf WAS4R41mb5W0QIZzBRXg KJM0yMY9lX8vdUazxmyb bGVmdDsgdmVydGlj OKkcAAucY265FMJaoPqg PkNvZGluZyBEYXRlOiAg MDYvMDUvMjAyNDwvdGQ+ EJAjFLB9gBchYJTe yRKiCRqjEe5klCzxgIyb QU3rDTFdugzdCDMlwS9g DTMluZJimOnvAV0wBUMn ywlul557IvPcAHP7 KCRqoQMeK0TzvD5mRkTs QESlDCIgP4GdtGLvTZei W161BJtjGkN4SKJogbLb A1HmXKUleOtuNeC7 j1U5Sn8Ik1IsxuxcY2Yh dCPaDyFsOgysOYm8X0Df PjwvdHI+EQ20RFVrBC46 WSs3RBX1jGeaJUxh FQCbD0BqxE6zJhBuUOIq ZGRkOyc+PHRhYmxlIHdp ZHRoPScxMDAlJyBzdHls BE3xEo5iRJHvNTJi pKuskPNcTpPvs9kvPGWg TCozHN0hqZifN4FqwXO6 SFDrz2g4Bd36F51dD1Lw dXA+UUAoiPR0tIL2 oY4sHwFvJbK3KMpqE690 MgEtfJQqNjfvc8wuj5ub uNa9GgP4NBXiaxUkvRku TFL4v8OlAq14X82u IHdpZHRoPSIxNSUiIHZh uPijue3fxE2aUs5+PGNv qCI1qPW2oZ9fThZdIdR5 XFjyX276KvNtkQDu Cgpud3ool4bmqOp8IcDj MHLhrmMimRrxSYX7h3Aq Vf47K2AoiPoaz6UfQjz6 hb00rSEfv6P4fRD3 N8NhVWPmxxacaUAxpFbw VN3rGCLkhrpgFCYalB4f CVHnU9c3EmYfEeW5XGrd I5EgneI9AKKdfFHn GODtyGUIaP2isbglv0xu gtxlEkIfWNOeYYf7YKb1 RJTxxHmtSvGaNBF6UqL4 GIO4nRCarU1ptJlo mrkleE6lKyn+VNW7cBSu eAHFSY1aUlcewAT+PHRk HVV2mMpnIEniBXHetI5a MGQzQ8x5TqIzGpW2 KPikT1BhnoC9XHVzuULp VEBnxQGOlW3rwbytb6bl urvfTiAsYBHrGHf5ATv4 LWFsaWduOiBsZWZ0 KzA7HXX3xLUkbP6pwEmw ylbblV8kNwa+QmlydGgg GYB6AJe5M5ZtMbd5ETIs cSutHP9saHFyYDvm Xs0pqTxbjKtbQV5dWSRu bogar139FlDjv7njRYRa sWMcUHdsROI4F26gl2O1 BXHeJZFdHEZ6eVG6 eB6uzUbamqfdsTXimYxd nuNzsTbwSZtcVZdsG423 JIHwnEzhTrIiVNw1L1Hn Hhg8TLClkGjmWP7h xEYuWEklBk7whYosvKcz QS4kDOVvqibfx167ScQq l4rrCOBkfANqXBddGQQ8 N53pj0C6VHSrXOSo HBU3bPZ2bP0toPhuntkh bGVmdDsgdmVydGljYWwt VRylX029AJEfrEbvMgUo qWk1D9WlHiw4PVMh kWnhJL1ozTVcMRlvCs0f aAwjjJbcBR6qIRAjkllv p845IgPei1kjQPDthUMh HBezWZR2E28pl1K3 AZTeJTPbKSQ9iTX1wD5f bGlnbjogbGVmdDsgdmVy uYmpUQtcGOddA694KLKy cDsnPlBhdGllbnQg OSyaHPf6K9LgEnkxtCK+ VG32UJStHD89rMDqqSOm g2axsLj8WuBoVREcQER4 nJsxRCbvw5PlCLKk F39mbJSax6J4PZJrsLnl oJGrBlIxcYX7qQ6aTUcc xlzgx1dlioquOxouj8kh eb39bM64S90yKMcz ZHRoPSIzMCUiIHZhbGln dg0dpV3aRx8+PGNvbCB3 qFW4kV5hYIBfBwF5LZze E814EjYujFHlXcoy y3tdz7hilHs8LjL3QQTk rfFokUcaSVO8x3DkKl70 U75vGZzzBESiWNQqSTTs PUKqkUywxp8ikO6s Ii8+YWGaqHV3vMK4mI6j FpYaNnQ2RExmK754ObEa kJBwNdsuW04gE9RtbCN+ ZXZhCdq5HDLjlVgx TR8zqRHeQCbkVl1hQUW9 MpXzCxCvCTyxJ6HpAISm mpjdqkoktYV2TUYuJRRi tE40Np0rhJleEZQi bSYXgH2ljjihe6bdlzli GlJpSXXjIOp5LGy5CDMm lLwtUhGpXNM0BzL1QMW3 mDGkoG6kwEztybef sG2wF5EqUZQtwwbbWg73 kG6yZrUbHjL2UJzjNjt+ I0GCTuplCV9DQ0rGEYpb SzwvdGQ+PHRkIHN0 oOvbAQudQEKopY0xOPOx W9b7MqFlUpR6OCycJ9Lv GVJkwfdgAe01vR5sLtYl DgN2HBtxS0DwxkD5 NZDtoUZaYVlfBUF7D75q q0V0ITCtMHEeTIL7oEF9 zK4dwAbbgrlisSVjySbc dmVydGljYWwtYWxp X163LJEnsYjiFeJnUsC5 NkL4KhE8W0KdOdd4HQMf gLfvEQ6lfAHuCOvjBq0j wLohsLqhCC7lYHWm rxjwJXHjaV9xBROvfMWn oEplFE8bLRYwguawk102 OdLsHNB6GJZfcCBkX2Hg uW0gMbVsUPYpGUIc N3VheVRfMVrmB131XWye ZxB3QYGaemZxT7XiXOEf fOpkKdZ3p8D5Tw11JCQN ZWFyczwvdGQ+PHRk VPZ0bDaeQRbxWPZfrR1j LPLzZ0w5StUcZnK2IQfh M8LrIMYmtvkcUv52nZ8l YuWhJjZ2IYtgK5Ys vxF2FNRjeFRoSMznYWE5 P42gn6A0TEFaIALzEML2 qXO3eK5fvJbzpyoskGRp dDsgdmVydGljYWwt HEbrU943SHLixXxdWs3C QNW8S6FsGzb8QRWppTzu MJ1mbPUcIDraHs9fsWpu aDgmPH6lYZXrxrgg FKSoeA4mYCCwcGDdmIbl NU1qAMXetegiu439RrOe WWM5JAWnnQChV2IcpS9z HaCsOOErLWDmO5Lr kHTgWDlyW274EUggGvR3 VLKkvgCkH3QkZBHzhViy OkR6a0Z6Bk3GOAvmnWN+ CV62on98F9ArCltw Aba8YOYaGWO9nHI4yA0z NDDtFIsrn2D1vEZ5U6Hh nfZpzn2xk3pxZSHoAQvo R44hcAZml9V6EWJh wVE3LXIevUnsTxDcxB26 Oyc+TJNkpXred5KlSwsh b8ykz1cwiNa7PtCqNDDr peApeXfkAOD7y3Us Uj12I14dGCbyCENiFDNe APFzAALvyYfaun3nqU2y Ii8+LSPovTB6oUZ8dW3s HhJrChE0TMhnQ432 HhEhbOKaGqgre1dil4sk oBz8KtAlDZNkqsTncPbg PEG2y5HtMv23V0IppVap m4XoOkv2oq16hWRa d2O5aOJ2B0RvDLYmsion tGLwnZyiKH7tXJIdxori WTRjqN9vXDGyE6p5AlHo AsX7FUwiN4EvepH1 KEUjdWEwOKXzdGJKgV2z prykz7jbzyolCmEsVWCt EFv9EDl0TSWigEjxVmYj ASI1QnB7CJJ7iUJv mV2ekKtiopirwA0tRyp+ MFa0t5ureAEtII8umNU8 NC06JC70oHOna7Q3gRC0 M9YsMRYvoyeomtzl iNX4EIQhRQAazS15Jg8a tKecYm7bNIXwDAT3NUAc tCGvQ7XndI3iVjRdYVLp VRLcV6MlkZRmNGjc B689PGyvOqV6GCDxxuKl P2QnJDQyjUrwFdU4e2Q9 Hk2MOW93CB88LC66nAPk d8A6lTE8A6OiWKIc aiwizcfpoNL2NMOcQEWt pA57Ql8ojRzsTx8iFMTk NTR8RLCbsYFbM6AhhN4o DjXdSIXdVDFgC9Cx zFCsLWjeW515YAtrSvX8 FWGfirHxD3KiDIDlyFqh DmQ6a0H6Ch0LVa50UX28 TC59aTEum9A8mGC5 Z1IkGNRvtrnkajfrfZQ0 DWReJCWyoQ20Sl5wrHvk Yu6rUDZtGQS8TDWfwYXo H2TkaN8vKrGmACTg DBWtB0JvyZCcLUxnC207 EKubWkI4TNPzbvViR7Be FYRgwChlQfS3w4W2Wo0U DAoavgb3S9UwTfik dHI+YF50SRViWF92eLXq qYUex3hhvRq0EeYrFQOt SAM0iSxsGSmqg7IcNNGu U16wuGPpt3C3TVOk bGx (more content not included)... [facility] Wound Care Noteon 10-01-2023 Wound Care Note [id number] [facility] Ambulatory Patient Summaryon 09-25-2023 Ambulatory Patient Summary [address], [address] - Visit Summary For YRN RICARDO Age: 63 years Sex: MALE : 1960 Address: [address] [place] [address] [address] [facility] [place], [place], [facility] Home: Work: -- Primary Care Provider: LESLY MELCHOR MD Race: White Ethnicity: Not or Language: Bah[place]ian Health Plan: 1?[facility], 2?[facility], 3?[facility] Reason for Visit: Three month follow up for med refills Prescription Information: If you have been given a prescription for narcotics, seek immediate medical attention if you have any difficulty breathing or any sudden status changes such as confusion and sleepiness. If you or anyone you know is experiencing suicidal thoughts, mental health, alcohol and/or drug addiction problems; contact the [facility] 26/11 Crisis Hotline -Text 4HPBG lz [phone]. Follow-Up Information With: Address: When: KAREN ZAPATA, LESLY To [facility] [address] [place] [address]/[address] [place] [address] In 3 months With: Address: When: LESLY MELCHOR MD [facility] [address] [place] [address]/[address] [place] [address] In 3 months Future Appointments [facility] Appt. Date: 12/24/2023 2:15 PM Scheduled Provider: Lesly Melchor MD [address] [place] [address] [place], [address] Future Orders No future orders Additional Goals [...] 3 m2 Body Mass Index: 47.2 kg/m2 Blum Body Weight Calculated: 84.047 kg BSA Measured: [...] for 5 week(s), 0 refills authorized Instructions: [facility] Flovent HFA 110 mcg/inh inhalation aerosol [...] tab(s)(650 Milligram) (more content not included)... [facility] Patient Handouton 09-25-2023 Patient Handout [...] walking or exercising. ? An inability to rn discharge items, twist your hand(s), or control the [...] aerobics, that increase your heart rate. ? Pmphe-nx-vnxvqe activities. These help your joints move more [...] above the (more content not included)... [facility] Coding Summaryon 09-20-2023 Coding Summary HTMLBase 64 TbcamqkwWDo9rWb+PGhl YWQ+IF7TJTWhO27gfGDa hP3tB9SLLUjOJisdAEHI OIbAQrBpmtTqFF3tjVEd ZXJu IC8+NA0dARRmCwqgzURd e1E9eFH7A19qqg2pTNrf uVW9ZPCcUjEfbsmsy9kk tXn3BJiwSkqnKxTi ZBRsiQ80RLC0tI14Jd93 oUMhnHXtz7iviAp3DyBi LVHnBVY3qIznKLrrp5Nv QDCfP76ihEJyi3S3 IGNvbGxhcHNlOyBlbXB0 sM6uSRwxieuvv6spozln Yyn9sz72xSQni8R1gXB5 H5ZjamD9ICGjkUMu JprucZCDuD1anpndw0po yryoBlDeDJIeKCs7EKu7 LQJghRjcDgCdTW27DWD3 NDTchzPbD8KmBPZt lHadRvV5j3R8Nl9NX0WS BbjyX7VZRVCBVDkrmAK+ VA82op01I4QxBplvMjv7 RJSlMYX0pRM2mX8m TGQhFNmew7D8mCI2I8Rl qtEjqt3zv7tcUYBaNUmq Z71qeYPqq2C5RYWieCX9 WJYnpNytPzZgwG49 Oyc+XQDyvQwlk3LrFags w6kep0xywEe2EpjgIIDq llXkqMevXZR0o6CbQi8n DPUwnTF4kMC2pP3x UhTfTiX3DEgcE020QbFd nEPaLlbxQ81cT4PvqKY+ VEMsIjr8QYGwwNumDV7c O6MeRAYhofzqjVGs tXpgOD8dBWTyqxutXUVo aK9hEQIbO1e7KfQrXqD3 XAauD5PsIIXzprbxPa45 bF1lRaDfRdP5FUey F7KhkhY0SSKqeKZzSUlb DOI3S57ty3I8ETUuHUVn PTG8sED3bS4rjVtkjfoy bGVmdDsgdmVydGlj ZSfuUChjI019LDDijDdt PkNvZGluZyBEYXRlOiAg MDUvMTcvMjAyNDwvdGQ+ INXvVXA3nFyyJNOq iCFkDNtuEs9obZazjJvw VN9yFQXwfantRHVybT0k AUXroTYadPudDE2qPBDy umbka680IuSjMHW7 BAOvtXPyB0AhjX5tZqMm OXAxKWOeO3AjvKMfSYez R656HHbtLfT6NTMgjaLg G3YhIVFknFexLsF1 b3S8Pv3Pr4DwhsofQ0On wDIbYrAwDkjbFKv3N4Tj PjwvdHI+JY85OKJnCY58 GGn2AUG5mFqeRWnn PNOaF3GlrD7aDxKxQIXz ZGRkOyc+PHRhYmxlIHdp ZHRoPScxMDAlJyBzdHls AV2jYy9sCKTaBENy nJfaxXMnAjUez0fkBDLc ZWtdWY8kaJogJ7CopPX1 XSGpm1y2Sz03V78nS6Zt dXA+HPMiyEK5mMA7 hX9vAmOwYzP0CCgcV004 YcHgsLWvQmkay5auu8lf jCl9YpW3GHDricHbvHqs GVN8i1TfZp02F63w IHdpZHRoPSIxNSUiIHZh rHcqpz9zaW0jRo8+PGNv oHK0vCU5nX6lJaWvHfN7 BNgjV940KcVheBBh Mpuqh5quh5kstTz8YgKd BWNedpReiGlqWMK6o4Gj Lv02K3JitGvpo3AaPfv5 gd43pYBbs4B3rIX7 R6LoBVZpnbnagYMcaYct DA4lWBPmaephWWNrtM3o JKAlJ0b6WyBaBwB0WXtq O9HhudX3YSHvgUBn HQMxgFUPdO9skfhrb4fu vzgkNpVrNYJePVl4LIr4 XHWyjGqfJeRuMEM0PaQ9 GUA4oKDstL8jsObl almvvG9tObh+PXS5hEKl pYODKW5sNgstcPJ+PHRk UNW5eNkxGXfuQQUokQ1v UMUsJ1e6FeAvRzS2 QFftI5JmnrN8TWFjzNRi QTJwbJGQqS6xtvyri8gl iyvfYiDqWCTkGFp1CIm5 LWFsaWduOiBsZWZ0 PkD3IPA6eXKbsJ9kfRbo thddsK4iDzm+QmlydGgg BIF9FUr3A1IjOaq5OEIs jVxlPB4ugESbZZzw Ry2jiEcofJqcIO0sHEKe kpuud758AzGzc2tkLTPh iTYlCEtmSVM9M44yq0Z5 AUUhAUClPTY4lPA6 zU6jgSwzqsmnrQKppQbl qpMuxQokYYjoTBudO933 SAMamHhuVtFqEZf5P8An Rwb0ONSihLwaWA3h oRKkHYsrIk9wdScqpIwt RF7vMWRalcpct705QeZl u3zrLUCveMLzWDoaZSF7 J90pk5L0VFCqBBRl TAA1sMO1nB9kgWtsltpy bGVmdDsgdmVydGljYWwt WIoxP174WWHubDkjFgTu xMz1I3QlOlr0PMQn wCjiRG4joKGrKVueLn4b hRxvqZhqQW5bQVXdiogv c707GhNot0ocOGJdbRPe VMufEOH4Q64kt5K7 EBWlGSSfDSE6hQT1lP1n bGlnbjogbGVmdDsgdmVy fSjeRCfcJAwuJ661FFTh cDsnPlBhdGllbnQg YZakOPl0N9WmLeocvCN+ NY12FDFyHM75bXImgOPw q4hwqUz6PjBjWNUqYAW1 hMfgLTytb0CwKGRy K03cyPXme0X7WGLqqPon qQHyMqSrgWB0dT5fVXny bemal8auaqckPkhzf9bf yq05tL32U10aBHtf ZHRoPSIzMCUiIHZhbGln lw0hwT7rYe0+PGNvbCB3 iID6zR8uKZKoLcK3OFbc G229XxFtbXXwTcqf i0foj7eenTx8ShI5WYRe meHzyLorYKV5n0KsJg57 I10kRZcgRQZrAMKhLZRp JRVjwUlzhj7vdZ8z Ii8+FXEqjTL8yCH1tL4q AgAtKlC2JFhkY795NoLu sFZxTduuM13bA6DgkKY+ FMWeVbr6XNVqbZui SU9ujWUiPYakYp8sSRF1 QcAtPxWkBZtoZ3LxJPRe fqlsktfmkFH9LIPgYNCw pI32Av7zrZezQLBl xKGXgP5mleimg8fikqwh LlRjTELyLUk7WTc9OPUp xYeaKzBqEFD8DzA3XCF6 fLNpbJ9wqViebuvs lR1pI6DwTXKmrvpnMg54 nW5aAaTrWkL8YKugXtw+ B9KVMksjTB0BQ2cCZZkr SzwvdGQ+PHRkIHN0 oCgkSYovPDRpjH1rKFTs L0o2IsEcGkQ4WXbeA0Uz DIAmtsmvBh46bS9fSuGt TrK6AYgsD4QycqI1 STXroGKzHBpzWRY1V66b a6H5FTWvKGRjFEP3xLV0 zJ2uxNdlzmqtqUYvsAda dmVydGljYWwtYWxp H724FHOjfOrfDlGcGmU2 KcZ1TjP3H4RdHvh1NFWp qUhbFX7bpORiJJxwIb2b dAobyYkzND7sXCSw qmzmOAGnkV7dRZRmgFQn tAktSI8pPUZuryrpb807 KvPmQAB8YWQofBLuJ1Cd zH9fDqRrOIJaOWYg Z1GclYYpYKhnB634EWus AnQ1WLVolfMbX9DfAKTk cEvdEwI7y6B5Tt21OVYJ ZWFyczwvdGQ+PHRk FFN9vXnxUGdmNVXubW0p UFOwQ7j9WcWiRfD1QTeb W4XjUVCdizudPa94xB8r ZjWlDcQ3RKlkU7Kw yyD6CORfrFOtPZojASA7 I98el4R7ZLCdFPDbHLV3 jFT9jF9okOchriaajVXl dDsgdmVydGljYWwt WKgkW503IBRvrFdgXm5T TBO6A7JjAek1KACskSvk BP2ukZIaXIwbYg7eaJcn hOwzBM9gIIKtejgq GWTzuA2tJGXxwQNeaKrz IO5fGLViephrf811MwJy SJN0WUUgkKIcI3RxdA3m HgVwRODqALEwK1Za rIHfMVeiY441FUlrAaU2 RJPexjXuE7VrNXEumVzf MdF3u2G2Tb8YNOrqqRK+ EU65wg93I2JpNaab Mgd6GLJeTIJ3yZW8uG1e KCRqZSavi9T8eHM0F6Lu rzIkbm3tm7vdNLGsNRev M96axJFux9N3TTXn vVL1EWIgaYyxDiKbrP64 Oyc+RTCshQqyk6LrPquu f2pva9rkaVi5HbXkGSBc pzAncJefRSC5m9Zq De82L63dMXueNTGoWFJo NSJgWVWliVrmyy8oxB2b Ii8+XDSjlHI5uST4wI5v OtPyLfW8CGakN961 JwZruAJzOkhnv0wsj4lc vYo0SwXmLIBllzCfoBgw QFP5h0CiOv67G1NrgHee y1MqDun7kz10dVWy u6X7aCN2C1DlMIGxnanw qVSoeZsqXN0kDDFfujkg KLOxoH0cNMXuJ0d4NpPx TzL1PNrzR4UulvF2 YRFneUJiFSCjoMJCxF3s cgdix0qelvgwWpTnVIHe BVh7SJk6LIUtyQgoEaQn RJW3HiE3CYZ1eIOq vQ9tfBxcxvgjyM6uQgo+ JUq1g8skgHBtJZ6pnDX2 YN23AI69hLEkp5B0zPH7 W5HiQFLauqdomgjg fHX1ZKGxGEOseT18Uc0v mIrlJg4oBJRzCKB4OLOa qCCqD3HoyA2pJdGdMHTs DKYuK6NazTMnGUdf V706AOxoLhA2JELqceNq T4EaOQSetGvuVhE5l6U1 Uw8AAU94UU26OL36nJBu w3L5dEC9K8VkMRWv hhzjbzdaqLP7CGGuJDCp pZ14Nq8boNltPr6pSYVf LWG5OKCduHDsG4SvfD2f JxXhIZRtHVNwW8Ux lSMcZChqL978RFdmMeP4 HRHhklNzJ1OeXCCdfVsc NzH8q4Q6Bk8LCe03HZ30 AN46dUYqb0M2gEB2 H1ZdXVOfsafrzqmzzCN6 FODwCCFvmL84Bu6trPvc Dr0hKDBlLPL2UCSdzBIg T0ElrL7sEiRbLLBc JZInS2DmsWNwXLaoO318 VCwjDhR6AYGewwDzH1Nl JJCgeXvlIhW1f9K2Gh5C GQzhagq2A0YrNvyd dHI+MS72QEFwAS14mZAy sKWzr7xcrXu0XqJqCGRz VFN7pHiyFDwlp7WtSQNf T65nmJLhs6B9OUQs bGx (more content not included)... [facility] Coding Summary HTMLBase 64 NoptdiexWLu8yVe+PGhl YWQ+JU0EJMCiX40zwVRm lG9sU9GQOSxCJotnZSGP LZbXLdWpqpBmBL5wpIPb ZXJu IC8+JS0sXIIjKuqwqVYc f8N6tRZ0L73ymd3xHCvg eCL5DYJsBgLojcxuf8ig jOc7GLlrCraiZxYu ETBpxC38FHX3oX71Cw75 kAVdsUSrb7mmzQb6HfXn XERhEJO1jLmjHOmmx9Ia KYObG88yfMFxa7H6 IGNvbGxhcHNlOyBlbXB0 nM8vUKdkayzqh7sltlcq Yfs0lo84mUQrx5D5aAD1 D2ToxmJ6OVGjzBTx JbfkzCNTnP0wuafhj3jj tjsmNcSxBPUtIEw8PXa5 DRZckJnbMyUcMC74LUB6 OIVgsbOvI9RtLXMn vNkaSmQ2h3W5Rd2WZ2PK ZrgwJ2PXQZNZVZvekGS+ IZ42dz59N8BwSoaoYgy5 DYTyRXJ9eYI0wT7z SDMrHPimd4J0gGV9E7Dp sfRdaj5fz5qkCEEsUXyx Z59hfOFfx1G7WLPwaSH5 LCWbhZlyGhRvfQ10 Oyc+ZJAwiJlqp4EjCwmo q2zfk8anjJx3BtkjBMWz giJcuPafCXM7j7RvSs3u MZYkjGK7aQH6lL1e PzMmLrV4SMyzG005QpEo xPKzSdtiT03jX2KzsQB+ VAEdCqo4QLSuiWmpHG4q N8ZyPOEpsaiqcDGs lSbiYU8jIKSlptycSGXe rN9hAXVaO6t3ZlPpJqM2 BZigL7QvIPXlhbvxOv14 eD0yOrUjCwC7QVxm O8PvcmM8WEHtzSPmOMga LTN7E41ty7L2CBOsENWe XQD1rWS2rP0twHwmsjah bGVmdDsgdmVydGlj IMqbAWpuD339PPUdwGgn PkNvZGluZyBEYXRlOiAg MDUvMTcvMjAyNDwvdGQ+ ZYFnEBQ8vTlqMTKc qOXpSUaxGj0lwSxufMuf PR7qCCSlxlqaMWJayX5h BHRoqOHxtXcnOQ7eDOOs qguqb644AwRbCYV8 LBFojJBzK8FgkP1oQkWq IPJoGNHsQ0ZwgMAkXGdj T581QAmmSvP5RVNfcdEr U7FqMZSyrZnfLfL0 v4B3Ye7Kg8PqarnuI3Za uCZeCaBiEgqjWBy9S1Wo PjwvdHI+PI83TDXlRQ76 XFq8WEX4sAeqHUmf RRNjT0YchG7dLjUiDDVr ZGRkOyc+PHRhYmxlIHdp ZHRoPScxMDAlJyBzdHls LJ3kZj7yWJEwZOKi oPqyhFTwAcKhf4ugVDWo SOpfKW1dzZvjX8XmaYF2 EBTfo9z6Qo34E08fC3Nv dXA+VPRbmZF0eQF3 cC3wOfJdDfE6BAhhB230 VsCrtDXlLsnjm6vla5yt gQq4NgF2ZRPaxlWybWyf GOG3h7CwHe57A38m IHdpZHRoPSIxNSUiIHZh iAydsj9emQ7iGt4+PGNv hAG3rNH0eO4dUrWaIqS8 RXosH626CqCywJYi Momrt5tdf3htaVw0TnCo HBLxisGplZaiYQF6j0Ar Wo89Y6IibEhcn1BtCbq5 gg02kLWtl2K7bQJ6 R6PdOYPumqoczIQmdMqh NU9qPYDyvcueSJYyqE8p VFExB4x3XwSpBnX2DAbh P8IorcW4QAIndJPm XSRmjYUIlH1unasdf4rd inkgCjBxUZHuEIw3UFh2 MFOxmMsbMySyKKO8LrC2 JIM9bUPsuK3roWkn ezncuV3nWof+YHP5fMHr tJWHKY4uDtpugNJ+PHRk LZG1rKqaQNydHCEauP3i GGPoK7g7HoAaRgA7 BHaqB7UfxqK3AIFjxSGw VBPiuINWaP5uivaun2za yqitHlCzMLMiVLc2OLd5 LWFsaWduOiBsZWZ0 HiZ2YZI5kMHhjF5ncYbf ezsvcM8lIoa+QmlydGgg LMU3JFd0H3CaNwl3RVFs oXomYF4cgFGvAYro Gt9fcWpvlRufOU5sGFPw udxoo057RzBus9sxUAOu qHNfIBskFYO2O47qz7L5 UFXcMPPtSNC0iDW1 dH2xsMvvcuepwWEwjRtl xvIlvVgyGQuwYZkfZ773 GMPezIulPvWiGIu7N7Hj Yjw7JOQfzNctPR4c xVNoYRewYb2xkYaufHyx OH0rXPGprojsy091QaBv j7auQBKmhGIvOWcaQJZ7 M23ow1J5TFKaAPMl WHZ7bZP2bA3suQguqejp bGVmdDsgdmVydGljYWwt JVnpA638QRCfcGmqNvEs bMl0G7HeIbx8NMNy zBmuUW3ouBTqKQuuBo7y hDornXgcVN0uICJagnge o481HuZmq8qxJEEatDBz THkfPVL6O82fz9O2 PQHsIKEsCQR5oRP4zT1v bGlnbjogbGVmdDsgdmVy jRjiICpaGMprM847OKAo cDsnPlBhdGllbnQg DBaxLBp4N5HtXmvtoZA+ MD34GOEiSB62zKTcgCKd a6avjSl1PwDqCGPnMWU2 fWthMDwws6GyPBBg U45hrBLep4D7CMLbwXgg qTEsLyUreSM7sW6uMRga xrhsw5zqycdjHmwxf2ny zp84qC20K74mCFqg ZHRoPSIzMCUiIHZhbGln et6hqI9rIo3+PGNvbCB3 mQX2pM4rTUSmTkU4UShw A434NwQqtATsJvsz o7cgo8ertKl4RuF0CZJw urCfyOglMVK7n0PyBr61 U28oQWblBHEzCFXlNPEv ZZAacTszam7sfA4l Ii8+YYMlgKV9nMI1aU5l RyEzHtO7OSyaX545FqWw yBVxNvlcR99mU9HtoZI+ UHLuPsz3HGQkrHjg FM6diUNkWJwhQw1tRGC2 BvUvRuLcYKjgW7ZoJTJz jnxjbewfaTT3AIZcTXIo aZ49Hw4oqLcrVOSc hKDPjO0qlfytj7vkbzmi SjJqTYVaBPr5URz8NBQf hUzzSaCkRAJ8CmU4AXA4 hEWupT2eiIwhmjqb mL9eB2QaVLEqlwzhNg64 jN0mZiTtDsE8YXxuIyn+ H9TOEihhMW4PD2kHCRje SzwvdGQ+PHRkIHN0 sIrrYXmyMZLjvV2bSGJr O3y6NgYxWcY1MNewB4Eg PFWfwsobGd27wO0rDcDd NgA1UItqW0WwjyN8 AGXgvLDmHHwxREE2A02z v2M6RONrMIRcZOM0eBK3 oK9xkLzxupuysABxyWrb dmVydGljYWwtYWxp X526LQJhmRgrTlYhTtE8 KsL8AdZ0Y0RrQef0VJHd vInmVW5snQQeMUvdWa3w xIbuxQvlTH2uASTn emycBVTosL2vHQYddHPa oOakQQ8wOOYesnehf808 VkGuFJM2ZXWsbRVlY4Dc sM3rMyWmJJJfSTQl H2QxeNYvAUooK724HAdj ImS0XEKwytZhT7VjDAAf rAqwEyA7g0V9Vn99RRIZ ZWFyczwvdGQ+PHRk JXR3lHmyVNniFZNgfX1k VIKyC8p1RkJlXeI1SAvi H7IfAQCwxjbsNr61yL8p MnRbKbY4DOukE9Fh pzU9GTHrmVDzZWmeQUU4 M68zw5B1KSXnBHBeTTK9 nKP2oD7ohAbumfkmmWUm dDsgdmVydGljYWwt ZDnhZ030ISCubUytFu5H WLR0L7DfBey1LBIesVnc NE1sgWEoXKisXh9yxKir kMnfMJ0yDNYtnddf IQCdlD1yCCQyuYJrsByz XB2dNBKxhradt626MyDi RKM9MYGgpQOlD9LabD4i ZrSqFSWnKHKtJ3Gt hOFkORqzF430RFejPuZ3 CERkvfDxG7WhRCIizKux CuV1t8B0Ub0BZLroeMW+ JV47om76T4QsTsqg Dli4KYLmAEF6aLO8zZ3l UCIrVKmpi1V6sZY2Y6Rg caBptu8cx1wrSAMiAGle R53zmDRwa9P0WFLf wCV4XEQrfZcuXcMwoU08 Oyc+KGTfcXdcx2SrNgkg g4cjy5uvpLf9TfVeFOOj dyEwmUvhRSI5r8Tt Ki26O29hLFnnXOBnYAQq EHXqGYYdnCpplv4epW1o Ii8+OOXzeNB0rZK4zS9f DiGlXaD9HJqhN511 KdBmdVLaXenwa8rau2xd cQv4UgIjIFPssmTdfAaa CXP4w3AbRi31H8NlaUpn a3UkNyl2ut13nQSk k1K2hVF0Y5OgDMGejeen wMNgkMgaHE3rFAZfeccb HCMbbE9kADXiH9h1OkFm FqP7YIfyP3RnsjX5 GWXivTKdSUFagSNNyH2x wocaf4hufxdeMmIvPSNi DKm3RSu9NOHeqWmzBeFx RSD3RqO9QGE6cHVs iZ0deLfsgqamaC3mPpu+ KSw9w4ktcUFhNE7jyDW1 ZU88SE82eITkc0V3zLP4 P9OkEBVvzxjqmotw gVU4HUAoVHZwhR26Sy1p jHerSp8kKJFqEMM5FNEq qCAwF6PcyL8iLxTjPHAd RLRdF0NxnIXxEAhx F422ZKbwVpI9TATpbxUv X6DnKASrmSpaRgV1r4W2 Rk6QEZ37FI11TR48bKWi v9V0pNO0K0LbBNSd bqlsmguvoMK2LTSuPZEc qZ26Ag6qhPjlBx7jNLFu RUU7XXQzdCRyG4AxxG5k QlGiJRRkNOTnN9Vb nFYuJTauD182UCfaPqE9 LLVymuKiX1NeXGObpXlg DzJ1e2S7Dv4JOi14YG03 XL63fLRdq7K0uHL3 E6LhKDRpbearegzslUD0 XJQgTVUnhQ53Mf6yyFzn Nx4yYJJuRCW9OPQgjBIb F6JabT8oIgMqWLSu DGCrB4KfrAYqLGnaV541 MEbmReP5QYXdfwByV9Vj VRXhsZfwGzA4u5Q2Ye8E MQitxca5W4PdJbxa dHI+KP72RDDnEA18hKHu hBAra3pvtLb0AsIzWOVm URI2gAaxKWsoo2UkMDKl R22sgFIhl4J9OETk bGx (more content not included)... [facility] Coding Summary HTMLBase 64 XnxaehaiRNh9zIi+PGhl YWQ+RG7RLHHqI70doTZi hJ2oB0HFQTsUSbxnATKY MAgSUoTootDhOF0jfTFp ZXJu IC8+FG5kXZHpDupkiTLn h3Q2lVF2P70jnz5dOMve sWB1PEJkSiJgoeehb9oj sVk8THsgEyppXxYe EVTbkD44FEP2bZ29Yv58 mOXpmKWev6dupMt6UqLf OEYgITB3jSjvUKqom4Nr CMQzY01tyUDxj2E3 IGNvbGxhcHNlOyBlbXB0 rD2wXBxfhrqwd3kcyxtk Ubl8ds56mQEgi5W7dUT9 T2JapnW7ZHAtbOYq RfznqALWbH6fefdbr6hz hratMqCuWKKyVLs6DUq7 ZDVhmKckJlSfIE42XRB9 HBRnwlRjI6ExDGAq pNjrZzV3u9D4Zn4NF2RO HjquV2JJFFTXMWxooZA+ UL51cz05G4UuOusxRtv0 LXIcRFA4gDS4hR1y WCRwZLirg3A7hMU9M1Hr xuBain7wj4vdTVIbJJln W26cgYJos7A0KGZrvNJ7 JYSslSosIeNlpF80 Oyc+JTHdiPjeb8AfBqci j3nqz6ihuDg1ZxsrSMAm fqPajBxiVAN4h7MkVb2e ONIusLO8mRD2xP2g OtWeCwY5MMrsQ869YlJi oRFlPeptO67kN0HwuPW+ MXSnOuh3HPUtbWxrJW3r J6WzUEGwftpmzDZe sJzrFZ5aRURonnpvTACt fL1lUPArE2b4WkBmJrR2 ZVosU4IcMNGirfalXb31 lZ2wLiBxJkO3CLgf V0VjwlG3UDSxyNKfKOjw RWB8B98ok0N0OVSoZYMm DCN6qDP5aG8ofTenpqoz bGVmdDsgdmVydGlj CMfaCEvbY313WMEnhWqo PkNvZGluZyBEYXRlOiAg MDUvMTcvMjAyNDwvdGQ+ NCQyOFK1rWdlVHTk nJXfVEohJw5whPanqAck LL8aKYAphjgiKUTywM7p FJDzmYVzbZacTI1bSNIa vlctz340TaNtBIP7 QDJwiWRlT4MxwU9cHbTh EHJjGUSyC7MrgREjFPuo M454EPeoYrE7MFNpqhCv X3YmJLDjuUwzHnS5 c3A8Rh6Ef6PnpkgpX4Bk dYNkDhFcNxbmVLg1B4Qs PjwvdHI+GA93BCKyWD54 QTq6YFX2gGseRJbj AMZtJ5AqjG0kIiYqIBLp ZGRkOyc+PHRhYmxlIHdp ZHRoPScxMDAlJyBzdHls KR0kZs0zOPMmPYZw bJedwBJwXjQlj4ahKJOt PSzrOT3orBbxF6HuhOW0 QHFmb0g4Oj58T52zR3Mo dXA+FPVdgWB0fTV5 yP5rYgRxDaV4EWfpJ544 ZgTjtQMnHyhkw3cyu1yp hLc9GpY1EJTvesOuwRqh HPZ0d7BhJl08N70j IHdpZHRoPSIxNSUiIHZh tUgyaz9ekN3qPk1+PGNv pZP6sJM9oA9zAoGeVdD8 NOtwN966OlInaVYe Umyvl3uxh8pivVb3CvRg MMIixgDakMdxTUZ8b2Oj Ms69F9WqbBsqa2CmFtm0 hn69yEYyz4O0qQK2 A6XgEFIubyifoMTrqStj TZ7tUCYxpmxrOXCkmK2d ARYmU2t5TwBsDlP7DTww A1QbzrO4KVFbaQSd BTJvbQOYkK5xoikbd7vq ijmgWtKjDYHtYJb0BFc5 NTSdyOtbVdUeRKC4YbY7 GOR1hHMlaD1tvUyy hqqplJ7kNhs+LHB1dKGj vWYHFJ9jLqodxUF+PHRk NMZ4kAlnXHdjGRAwqY3f CNKeW6w3AkIfRaT7 ZRuaP4ZktxH6TPGznVJp NVKgcPXLyT5gvzbwz4yc gebrLaHfUFMvPPv8OPe1 LWFsaWduOiBsZWZ0 MiD8GRW1pUJetE1klGio thohaH6hXye+QmlydGgg GWJ6BHo9O7ZcXch4CGRf lAaiTQ5mvPYbVJza Eq5deDwmpOhpWN0uUBEm tckpg506LmRye8osAIDw cGAzOTzzNXU2J06ib0W3 CPElEXAlKUE5lIN4 qI7jdNlvkwazuDGmeHoo ibHjmIbtGIofVGjfL714 QZHauVkyQySbHVt0O4Oa Qge3RXCzmYfvYR9p bBMcLDtkVr4gyOxoyVwl KP0zTJKolfglq156DhTv z8dqXUIkbZGyCNkyJIQ9 V32hs2R4FCHgUUYa SAV8iLR8iF8hrHzbyrql bGVmdDsgdmVydGljYWwt JPjnG909PLZywLtbEhBc qUl3K9FhWad5HNNp gQmnZH6sjKNiUYlyWc6i iNzsjSbkHQ1fUBMwbpfa r697YqWkw4cjBIElmSBs DBhrVLA9I71yf3G2 PNSjWEClCRQ5yNE7xE6j bGlnbjogbGVmdDsgdmVy oCosXIvqYYjyA522HWXp cDsnPlBhdGllbnQg PHqtFWf9M7ChCpxcvBN+ GA39JVToCC72aKQgxHKc l5gsaVp3MyWdSCTeUKI3 fBliABsue5YiOUQi H58njKEbs9G2RRCctUko dJJgKwAvoDC2oZ8mCFua gzrwa8leiwtzFliov0ce te11xS36O90cRDdj ZHRoPSIzMCUiIHZhbGln oa9rjB5fNb7+PGNvbCB3 fBK2hY3dMEYvIdY1OYlr R886EyFgbCIvDmcc y7gfp2vndMn5FaV9RSNu leTldSpmKUH6o4RiSw39 A45vZTqqURMdCOZuBYJd ZLWtpDshtx1gdM1i Ii8+CMEvnRM7aLA0fJ7b BiSmTiO3PPurM665EwYi yYQxKwqzW20qL5WeoDT+ HUMaNri0FNPfnIdv TJ7zgKWzTOolFs8jYUT6 VrMkEaFiTUbiZ9MuXJKe tiavbkfqnDY8EOJsDWRo mA25Nr8uqTlfTLCv nNRJtP9fequkt5rvnrgs CbMkMTCqSCy6CAc4JEAp aAhlBtOgCMY1HaQ6QNT3 pMEjwZ9htHjdduoh oN3bY1UhEDCjieutVw74 eS8qIjPxEnB2WMtxCul+ I4JQSddlRJ0KT2lODUfd SzwvdGQ+PHRkIHN0 hSchIPkrALXzcL2aKWSv Z7j9MgUpTcN6AZjmS8Fm KTOaewkrYu00eU9pSqUf ZfX0KNirF8GxxfK6 NPPfoGHuXJgaZJF2K86y a6K3BGRuXYYyUIY3iNA4 pH4flLelcorqhIKplMka dmVydGljYWwtYWxp F132WYGwmMtfIsKhTlC2 TsT2SxJ2N6OpUra3ZCUd xOmhYW8ybTCnESrqMp3b lOjdzIwfBO6sOWRi fmzeLBQblK4rAMTjbNLp zDgwAM0kWQWglsawv319 OtLvEPC4LFQuwPHcR0Ec oV9gXbGaLZPvNPDd X7SojIHxVRkzH302QDia RbZ9ESCukaStZ7NwPMWw sJkkBgR0z5M2Ak23WFYD ZWFyczwvdGQ+PHRk HLS5xYmfZBblHMMtrH2n ZCTfB0d7QlCcNbO2URoh U3HdEXOmcfkxWg56iT2p JdZhJoT7JVicN4Mj zmR5UXQukEAbTYoeMUU1 I11mx4D6BQMuEQZcZGZ7 fFA9aG3paXbiwlvmxXDf dDsgdmVydGljYWwt LFjrI317RBMxbFqqRl8T CJG3Q9YxNwm0NHQlbFzo GL3pkRHmZKrnPs4ugIgh gQhlGB1hSSShquum BOOolX9jCWUxbHGvaJgl ZB6mVCUgyvmhu925BwBo KBR5DKLpiCKzD2IsbC5d GpXwIBNqNZRwW5Qy tTRgXGaqT086BFvlNwH3 HXIgihWpB2EdNERpnGim AtQ2e1U2Wz0UZPevbZW+ QC28dw66Y8HtQgax Bms6XZKqFTC8aHO5qY6x AGJnSDlny7X4fUB2R7Ji reJgug5ak2jhXQMjYQeo G18pyRZkx6Q3HPLs hTL8PAYgeNxiEcQaoF87 Oyc+JVFyaCwti2EnZlok x3uhz8zszXk6AeUyZWQy kfOegBetAES5i1Fp Ja21F17vHLejGWQfEAFk XLLzIASedGrbux9fhZ9j Ii8+NBFrqLI1pUD1mZ3l OtBfQrP3NDnnR379 XhDmoFIdOimof3vmy0fu aUx3QaJkYIUwexZolLjt RBO4x7UdHn09D4FhfErd z1ZqKhm0zl99zZWp u1A6ySO2T8YyPLJnxqex kHUefJsfZF2xGVPedixx JURemN7xJBVpL1n6EdBz EzZ9FRpfO1XsobG2 XRNqmQUwYMHlwVGPzF2j sarcx5fihaphLaHbRZZt MYb9KCz8UWQdnNtdDzSh UNS7WhR5NGT7pKIv gI1oqLffjpgnpT3dZuq+ UGv9r0oywJBuOA4kwLU1 XF83OP02uUFwy0F7nEI5 V5UyFFTfldytpadr tWJ8LTFfWCKjiG67Ns4x qRzyZz3nHYYiYBP2EYWv nDJlD8FocC0uPzOlGJHq WISlE5YtpFYdOSeo V126KXpjGlH1HSZjsjGv V6JpPICctByzMdL9x1I8 Ml2UXE60YR66NW15lUBa v6N8bYI4F2XbQEGj iqllhhgzySH2CNObJPDm rL64Sq7qxBjlQn4zBZGh RTJ3CIZceRJpA2FbeB6j NbDhMPMzHXKvR6Bq cSJsOAzoR563FXskMkL9 OZPlirKxK6IrGYEnjEci EpC3m8D2Zf3KLv21QL62 YE32wKFse1G8nEB6 X0UvDYUkqkmjqqgxoDJ1 HLToVDDdeZ37Ic7rkFjm Vp3xQEEcKQQ5PGRycKIz J8ZvkP2nYlFbHRRh OOKaY8DblSToFGvuI070 JLlaIoB7NMXubrPhC0Tr HKYbzWqoSjU3k7N3Uw2Y IHcegwr1N6XyCspv dHI+VI45QEOaKH12hHCw kSEci5uivGs9IgSsZFNu ZDL1qGcaEQkjg1YtGGVb R09dqHTll0M1NSWr bGx (more content not included)... [facility] Wound Care Noteon 09-16-2023 Wound Care Note [id number][facility] Outside Records [id number] [id number] [id number] [facility] Wound Care Note [id number]#1 .00[facility] Coding Summaryon 09-07-2023 Coding Summary HTMLBase 64 NzrcvabxLZl1zEv+PGhl YWQ+JN0YFYPbL75orCQn cM9rS0OAEBgNZuoiRVNR SUtKKvOxaaFhSK8huINi ZXJu IC8+EB0dPVLwMwxrqLVd i8M5oCP8T63vhy2eTNrl mOG4ZKXxIqAjfxqab8np gXw5GBiyNvdoPkDn IJGdbV58LNC6rA61Ve91 fRSfiRLuf5waoFo6JwIa FCLyZCL2bGyiYYeiv0Hl DVCcM81ooUVqn8A9 IGNvbGxhcHNlOyBlbXB0 oX2aFSjgjvzqt3numxzt Ikr3ab55jWMal8O4gCB0 D4UgxoN2VQChqQQz JkiduBSTuP7ayqxsv2ik ddycZdSbJWBbHLf2JDg3 YFLjwXwdTjSzOF49ZHT4 DTCjqlCsH4GvOOSe hHceQnS6k4H4Pb0YF5NG RlzvD7JCPCMNCDyusMQ+ OQ18vu46E7NmDvdjIdf0 GJRoMBB5hVP6rN5l PVWxBXwlq2I0qQZ7L2So omUmgj8cu2elFKTqVNza H03lfFCgl3I0UJFdlML9 SGMzxFokSwRucK51 Oyc+TTNvmVmcm3JsRpbf r6wzy2gyhAo1OtulJWEj wmDhuKuzYZI0h1FwEt7y EWKkkOZ6tVC3qQ3b HmJzNtZ3VWzgF596GdAw pHGtTminO09jT3KvrKQ+ BWSwIku6JQQlvBplTY8g S3SlAWQsvrfivHYa gWcpCS0cJJWbpcprDVBl xC7uXEYiK3b2OuXiKkV4 AOggL5CsALWmwxxuMd15 nS5aUtPbPkD8ETtr F3KofaB4LHKygNEtBTmo DGQ1S18ua2L9NEUnOJGf LJH5nIF9xC5dnJkscohk bGVmdDsgdmVydGlj TIvqDYquM897FWUmlGou PkNvZGluZyBEYXRlOiAg MDUvMDQvMjAyNDwvdGQ+ EDKzBGG2eTkaHTMp lCJjZTqqVl1ltPievPji XY4zKINqcsgsGYTlmU6x NNYhtSQijDzhFQ1fVZUx lqwip256DiNgMLI5 THPmlEThB1YrwR7pCdAx BRWuTSLcT2QjsXOwUMub L692OSorVyX5SXPbnyKx M7YxJRSghCgfCtG9 d0U3Qj0Dr4NxblgtO7Ts uAIoGwRcYhxcJSu4I5Vx PjwvdHI+IC19ERZlLE68 SAy3EPZ6yObwIGfm LMVlK2QprK3bKcViNVRc ZGRkOyc+PHRhYmxlIHdp ZHRoPScxMDAlJyBzdHls BT7sNl2rDXHfUVIr qRwmaMRhBsIkv1imJLBn CNxeIR2cmKhtZ4OxxVY6 MQDqx2x2Nx61L78iS7Sz dXA+IJYsoFO4sUV3 oA4wUuQwKhF8MIgfO170 RnVtdSGvFtcnf4epn1rf zVl0WdI0JYWntvJjpCco BNS7k6WyIq97N96r IHdpZHRoPSIxNSUiIHZh mDazdr9vcJ2vGh7+PGNv kKX8dQB8yB4kWpVtFlP7 YVujX016MxSneURn Nmybm5kyg8upqSn0TeUd KAKicjCnjWfpROI2i4Wf Lc72K4ZjeWwvs5FdAdl8 ga73jYFou0R1vMA4 Y0AqXJZpphgahDDhaVmm GV2fUVLoiziuIPWbpB7t GRUjY8x1YvRsCbJ3LJmv G7RgweS6AGMwcZJk BXHhkXUDwE1nmqgqy4mj crgkWgAjEVTvMYk7GEn8 TRXopPgrWsXdSZJ3RmG2 GIY5bDVuhS1rgGgr rlhgdQ2oDpp+GUL7fNZi rKTPYO6sBhfkhTR+PHRk LCR4fRqlKAsyXXUxhQ0f FWPlV1u6DbTqAwB5 PBnaV1QwlnA0ROPtzMJg PREogSKGuZ3csluhl9vv tvvyNnLnQYZrCXk4DEj0 LWFsaWduOiBsZWZ0 RqV2DIZ8mGVthI4zsFpi nlnvcE6zZkf+QmlydGgg JSA4BRd8G8LwFzj3FRIb jSdkHL0jxABlGTqr Au6usSdrpAduAS0qFEHw frhgq574LbQzs7rlSSRz nXRiPQzoFNC1Y43hz4P2 QUVgSDIqOJX5lKK5 yP9zxXkdnbhgdIGlqGas seBdyGlcKAboBJiyX260 IQTzkXliOeTqBJj4C8In Gyj5GOMqwDvcEB4p hWWcUMdqHh2rrQohzCin XK0iFTCdgtniq512NxWg b6ssQVLvuYGtFJgdCXM5 Q85nb6Z5JZAoEHQe YKQ6yMV1sW5ufUurdujc bGVmdDsgdmVydGljYWwt UTtaX437ZHJdpZndIzBn qYu3J2CwOeg3VOBl lOzcIH2lhONkCJyaEc3d uMabqOhyIB8eJFLmmyzx r611JwGbg3qpQJXceSPf RMucRCD4G52rn2N5 EJWfPZVnRSA3nJQ4xJ9k bGlnbjogbGVmdDsgdmVy aFabXPgsBOnrD674GANy cDsnPlBhdGllbnQg PLliETc4A1ElCagvoRO+ PA99VALdMQ47pONpiWPh p3oedXi5SvIsMPJdIEC4 kGjhGWjov7DgCJMy F21aoPTbx2J1PDUeeOdp yUMaChGqvIZ7fZ6xUOab izplw4yfnmxrXbcpt0vg pz74nB88A37lQKkm ZHRoPSIzMCUiIHZhbGln kk6tsY8eMr6+PGNvbCB3 rEQ5iU1eCRUuYmE5TGjf N021VdLeyNUrKkpf r3xsh0huhIc3RbY6IWTv hjRlwAytFBD6s2JrWc99 Q11nVCkqYBLpKZKkHOGi JXUydGbjro9cnA7y Ii8+IUXqnYM7hDO6sD6v HeRwLbH0EQayC623RtUj fPUsQohiM04fU5KweFV+ CTOlMsp2SLQvpEwx CS4wrARnADokYz9iUXP0 RxRsOuQxDQbmG5EdHQFt elviajlhmUC4KUWwGQLn iA12Mw4waAuiIJBm sFZPjI3lplddv2miedir VrVzZQTlSTn4CWn6FRMi xGisKlGhKBU9VmR1JAZ5 vFXjrI5tcEnmmdmw tL1mB8UbNUXtteztGi51 mE3fSuPbXwA5BCuxIkx+ W1UMLvncED7MG3aYNOvg SzwvdGQ+PHRkIHN0 bWjiVHshEIMajH0jWIRg I7c5ZqYgTzL6QVvjR7Df VPQbnibbAd73aT9mOaDf ItT8PYcoU9ZcghH3 WKQoeQAcZJcgAGZ3J44g g1D3UOMkVFAgFSI1hVI0 iX5wkIjwdiyjrDIpvNjr dmVydGljYWwtYWxp D664EHHloFxlNzMsUcO8 CkQ5OzB3E0DhIrl5HIId pNqqFY1haUSsBFhtMa8s eMlpdDhrTW9sMLWt mixdUYZswV7zKTFheBAh hCwuGL0lWPEmvyhqz303 ChGgJUF5KGRgbEPoU3Gp yP9qOlMuLJWqBBYe D8FmqZWrLYnhI349RBin JpV5LHLuarQoT1LzDLCc iAhnFiJ7o8A9Jt79OGXM ZWFyczwvdGQ+PHRk CVY2dJgbFKojCYQomC6v IOJnO3k2YuHlSnQ0YDcm P5VmEPNzhavhWx80qP1p GoSwObQ6AVigR5Ei cyC7QNBokBHbWYyaOLC0 Z16oz9A7WDHzVBUxIOP1 dTF5dX5lcAuwrlcflMTv dDsgdmVydGljYWwt RDafZ266DVEocMqxAu6M YBW7K9AjLba1PHVnvUkt LD5yySVjSRogFb8rlRpt zQytYQ3jBXJhtkru DKOuzV2zSASftQWmqUuf LF7zQRJmcsfta862LgYo CDV5OGRgmZAsS9HhbB9z ZeStGGKkAPQhI4Lq rTLaPLrsG273ISkuSvF6 FCRkuoBlE3AwIFDldQce OlN7g6R2Ex2TYDpgvJV+ WH64rg15M8BdZawl Qdp5TPMuKIG7aQU7jK1r HBXhVNsjm3E5eRS9C0Dl ehBqaa2zg6kzFXOrTYta L61fnJBnl8N9SMNx xIH2MSOvjKhfLpBjoG29 Oyc+GJWylNptd1WjXeua i1yim7vwhTq6BhClEGHa zwTxvDjlPKS4d8Fw Hc30K07yNNixIYJaIECq ZGJaHLLpqJeyez2ydN8z Ii8+BNGnmQS6iZV1uT3r OoVlEjR0JLigB688 CgRhaYXrWiktx0ltt5zz sZi2UhNtFQSrraLpxWul FAR6r9LsNl54K6UawUvg m3TgNjr0or00fQDe u9O3rNM3M1OxRMPpzhir oVZczNahQH3kSJVbiqus EKDcdE0fDICtO7u8UpZc YxO1DAwvE2TfokG2 HULctJSwLPMltOAKhD8k dscan1pdwuysOcRyEVXz YLp0AZz7KPEbuTkePgCj EKJ8QuH9GUA7bXTp yI5fzSjzpaslmJ2mDhr+ KKv0v6adeFXbGM9chKG0 FD61CJ40iGHfj5C8pBB7 I6RaXLAjlxeyhptp eGE3YMAcTOKueW51Nt6u pBkzJh3dFYOcXXP0UCXn eHMuR2AsmQ4eOkTgNXJx COTuC6TpiPZiMSvc O759OKtwXlL5QXHbciYg Q5QqNPWyiGpzQpQ8k3L0 Za6KQS24EX66HY40vKBy q5R4kHF3V0FcLMXy fbrepzrdoTT2POZgECEv sC35Mp3zlAnoAt9pIQSb YLE2UIWbeEVkG3OhdI2h CaCnUNWdSJMiH7Ga eTRyAYwyU321ADagXmF4 YMWosrPkV1TlTNOejUmx KwO0f4Z7Gj6UJe85DR98 QG51yRQfk5F6kJL2 F1XiLUOupvdzvamveOV5 IKUyNYHjxN50Xy0njCcz Ib3oGVZzJAM8ASEshRSe T6KtjV6wTkNoVWBh AWOyF3CszBBhLZwhN043 LBmyStN9YPZintLwT0Iq ZAWlsVjcZjX9p0E4Lw6G VNvdxfu9B9XyVdbw dHI+LR42FBBeST38eSRt yKBrv4kgwSx6YmMgIWIq WVW3cFemXXcif4CrWSFx S99lgWOol2D6RZOq bGx (more content not included)... [facility] Coding Summaryon 09-03-2023 Coding Summary HTMLBase 64 SyanxogiLYu9cNf+PGhl YWQ+QL0TKXQcX57yoPNr pT7sW6LCMMiSLjwnLBVD VSaHKdDezyIbJL9duSWv ZXJu IC8+PP8gKTLnBnjjwAVv z1D7sNU8W75zex8rTDiu eHV2LFBwEeOiwlmkp0mz pWs3IAumMjnpJbAa KRPucN37FTC9mV33Pp59 hPXemBUep2avbEg9AcVt RBDhLHF5zWduGFqmc1Zp YPMzA22hhPAfe9O4 IGNvbGxhcHNlOyBlbXB0 iI2qXOqtkclvp0zywxsg Vix4xg54bQQyj9W3jXH4 A9CdrxD5TFYmrIKk YwefaVKAeU0eoiqij7fm zfnaNjUdDJKvXJi1MTm7 USPqyGzcMpBwMD74GIK8 CHZrfyYvZ0DvGRKq oQmkByV5t6L7Lw6VP9FH WkgyF1SYFVDNLSstbDM+ KL64jg20P5SnFdooLmh1 UGGxTUB9tHG2pL5b IMEiIWfgb6E1zOG7G7Qo knXhnj8mn0twQTRyRSpj D53xyXNhl2Q0AEPulZT8 VGIbuHtuYlGlrD34 Oyc+XQLewOjre4ShLdxp v0wkv4lrfDf6DgiqLWVr ofWkxOlnYQG7z8CvGl4d TWNzjXY5rMD1rY3h NnMoVyI2XQdqS842QaYj iUPkUdxqA13jN4FvtLD+ BSRbTpw5JQMrfIsuYP5v I9GeDCLvobzwnNFr iPotBM1uHUOcohygHQNq qM7yXQWaV3g2MsFvXxB2 IMpeS7TtXCPhiuzkLl89 hE8cHlZhVcY0DKgb M0JepeP1XNDfpOQbZMng DJQ4K72nm9V2BCObYZZq IPG6sZS4rP7vySaspctp bGVmdDsgdmVydGlj AJhjBKzzY767QYVeqUiz PkNvZGluZyBEYXRlOiAg MDQvMzAvMjAyNDwvdGQ+ CESjCDZ1dNndPFVl oPCoFTaiNs4niIqlwPyb CD6hGEZbfbncUIGatG5t RLShmXHmaDzkKB3pHVJr qzopy994DbAkTYK0 NZEjuPUnT9TyeD2vZkUx NBDuMOPyD8SlsCTmNPfj L689OIfqVzW6MHYpbfZp G3XhQFQfkUvtSxI4 t6Q8Ui2Ea5EdvgyiZ0Ux wKSwYdUtHphvOYd8Q8Mn PjwvdHI+BR46CICnGA62 KYg6WYO6nHueJTzj OLKaI4OgnE9cPaEeSGYu ZGRkOyc+PHRhYmxlIHdp ZHRoPScxMDAlJyBzdHls XV3mCv7eFJUcJOLu eDypoQVlEoMrf3irUDXf HEbtAS9nmQldM5QkiRZ9 QRZig0f2Vg70C51eM3Mj dXA+QMDivHH5zFX5 pI7rGsKqOvD2IXyyA496 YkZuaDVwBflqp5cun2zv iUr9HdL4BNSzubUwjXig CRV0w3OxCl68A54e IHdpZHRoPSIxNSUiIHZh nCgdao2kpM2fXl0+PGNv mPQ4yHV2tV6fFsUgRfW8 PAlnI642SrOztKXu Aioed2uev6lsxNr6GdHq TDAkbpAlkIoiMFK6i3Mo Ad05K9SbeWjpe2RcMkg3 jv50fBUbn2F9wDO3 G0SiRGGtqkmcoWVjhJgc PY9nXERjvvwqSGBtwU7j UXFuI9t1AiLxOpA6OYkd C8EkpcJ3JSKpxFXs QRVmtGAZlR0yzewas9md qenrKlGwBTXxUHj5XEo2 VHYbxLwgSsRgBGQ0IyB8 ICM2hUHzjL8rjPuj ihyfiG9cZjh+GBO8iSDl lAPIGW5zLmyedIC+PHRk HKM2nYqnJCjkANIyhF8i HWAgR7h8JyVoNpE3 OGjuR0TyrnW2MFZpoZPg EPPghWLExJ3lmotgz9ap ffeeItIlQPLqCTi2WEc6 LWFsaWduOiBsZWZ0 JhR1QNA5uULhcG5wkXxh xooskA1aPpr+QmlydGgg TZN9OIg9Z2XbJsw7FJGf yLlnVH3yvQDrECwd Ty5oxIpylAmzBQ8iCNNl aguzk556SiNpl3nmGHGn xWExDWwsDNA4V79og1H4 LXUbEXLoLQB5eUH4 aN6xtXcppkthgBVenZkn boLzyAqoGDheCYkuN831 AYBriIyjGeWhQNf7N5Gd Rvd6ZBSruGyiXY7f lLBpNXqhZh9baYaoaKmp LJ5aHEEwkoaln629NtZy s5yiFFTsaYPzGXejZWU3 A87nw3S2OFUjDJVm QIX8xOF9zV2ifYvhwqwz bGVmdDsgdmVydGljYWwt SGpdQ712FPHoeEaoGqLn iXy1C7ZpRmx2NRJb zTlnXE5lbIYwFMasZs5c xEblgXmpWX3tNWEvlzhg w047JlRck2gtDXErvCXb NSjxQJE8H39tn1R1 PWBmYGSjEUJ0iMO5lB1l bGlnbjogbGVmdDsgdmVy rPrlOScbQXzvR640ZUTq cDsnPlBhdGllbnQg KNqsYUu2O7GwHfrmsVF+ NT85TUYqDE80uKOkmGSm l8evlDa3ZmJvOBMkOIF0 pEklKHxqq9LhSJKa G49xuUWyi4N0FHMocPvi sZGvSvRfgZI4vO4zXEic fotdi2atlogwKuwsv1ca ys57vR17K24iCGhv ZHRoPSIzMCUiIHZhbGln fg0wvK4pWm1+PGNvbCB3 cOG5qY7wCIKxYgG3HQci I981MhQfdSPoMjis t0uvj3xoyWy7SkF4VQYl wxZbyEinMPO1q7MiLf22 R82iJUsdURFfMUWrPXRx OSEovBzcql8ksM9l Ii8+NDCcjDY2jQO3pR9t NcCbEmG9ELmsZ529IbOu qRIaJwvmO87oH3KduTN+ BPGmXmc8PDMcnIbg MM6qoMHgZDzmRu2cBHF2 GbEzIfIsLLtgC8GhQEDt gqzugsyugGX1NBQgNIIt iW15Fi6moMjcODKr qFTJhV6rjpkmv4qvbzjz CmBqMNSzWQb4VHk2RISf uIbcDeXuNJA6WzU9AON6 aRDpnF2mhDxcdcep bB9cL8WyFRJefmtoIy19 dV2yVeSqKxM3ASapVav+ Q8TCDgqjOW1IP8vBFLdv SzwvdGQ+PHRkIHN0 sMufPHbbGORdjX0bMFDx X8j7HvCyXiX7HPkrW3Lw FGRmmhayJl04kN4yIlMv EwC4EIelM9IxmjG4 ACGkyRBzLBseTTA0G63g a2N5MKKlYJIhQAN2pME8 kP1lbZdmdrcjzIYcyZbx dmVydGljYWwtYWxp H434AJUskNaiDwWyDpK6 DgV1HxW3Z6FaUuq3XIYj sJrnSP4lyCNhKPpxVk0s wWhetAsmRX0hLUEt nxwyHQPymI3xHNZiiFBz qQnfBG1vICGnbazaz367 EvDoGKN3TEZazIUtG6Dr uJ1qGsKbHCCcLSSi S2YpcQJhOLuqF919JQwa IkT5OBBjsdZuG9ZyDLDq lWzkPbE3u7H6Px38AXFE ZWFyczwvdGQ+PHRk KJU7jAzuYOoeLWZlwC4f NMJvL5s9PuWsRmP2JIqy X2WwAMEvepoqLf73gJ5b XqOkWjC0YVvzU2Fd isD2AKMhqUBlUFgaINQ8 S26pn7G2LHPrEHFnODK4 eCE3bR9neTsrbyzmnETb dDsgdmVydGljYWwt CBjlQ108EADhaCimMw6Y SJH9R3UgHfk0GAVppPml QZ5nzFSpSTdxIn8fdYzs xMmhHT4nJZNsupfu QZZkzN4bVDLyuIItcJvh JO4hIDIngxuhn020KoDc LAQ6DMHjiXOyF0CwfY0o InDuIKQbLJDvD6Gr iCJpUGjcT771QJslIoV8 TIEucvRyD4RwDCHyjIcj OsF7n8M7Gz9UWNgznAL+ TZ43iw30W8ZbLifs Noq2UYXmHJX6rMK9rU6i NHDjISlyx2V4sKT8M1Eu seNhsw0vt5ohDSVpWXwp K70pwJZxj0U8KAOb dGW2JFZhwDsbHbRkdE83 Oyc+ZTSovQmhs0AlFzfb b9agj9hhyRz1EaNnVOBh unLqcPfnVAS9g0Kb De18B02vZEvnENVdTGWv OXLbLSLcyZcnrl3psV2n Ii8+IVJbcZP8pVZ2xQ4q KaVtPxO7RSjtK220 CcAxvOIcYqmtf5nmw0qs pPe4RpLbFVAnpnZpqUyo VXU1b4QpHr47V8WimUzx c4OcNxa9sm35xPLy l4V4aFH0W9GuXLPhlulm mOGxaNlgLV0vZSQwryht NMOynP5nFEOrU6t0LqEq ThX9LTinL3EyjyT4 FOIbkOZzLRTreTOHtK3y dltcb9ihffssWgAnPXAd DFk4ATv4CFBvaFzfDqOc ZHD6QkV6ZTZ2xRNl zI9ryKriiwbjaJ5sToh+ RLo2s5zopXUlYF8fhKD3 GZ61BZ69eYNun4L4qHO5 Z7IxFIQatyxmsprq sLC5TPFkIIIfwU82Lh0i vSlbRw3iKWKgLEF6POPd jYEjX7FrjE7wDaOgEYFn STPpX3QwsIZfPCfc Y801EJgwGhP7LWMagcUj C0SuMTOjnHtkPtK6o7C0 Mc3LCG49IV07TH76rCGp u2I1cWO4K3ZmSPOc nmkoqfisaJQ3AWFuVSGm fW68Zk5hyVmnSw5lRJYm GTK7HCDmeMVwM4DdkH4f HrQyHAFcEOXgT3Wz lNNmIEzyM594TWdxMbB8 UTNjqhNnZ0QpHFCqrWko RjR8s6Y0Xf7ENu72UF76 LJ81hXFvi6K2nWN7 W7MlLJUksfulyfebwCL4 JUTyRDCgoJ35Ug0yvSoq Yr1vFOGhOZO5RMGneQDi T7KggW7lQgKnWEFj RQOgD4PriHHrIAiwN827 ZFghFiJ9SIDuszVqB3Iy YOEqfJbvPvX8x5S9Tf9W APugsta7R0IbVrby dHI+VH16NBClEH80qEQq dJPjw5wrjNj1SsJeOVIi PHO5wPnqKOsri8OqTBBd N10cxUDrk3F0AMVd bGx (more content not included)... [facility] Wound Care Noteon 09-02-2023 Wound Care Note [id number]#1. 00OTGTIFF [facility] Coding Summaryon 08-30-2023 Coding Summary HTMLBase 64 PcwnzqmcWVj7xVh+PGhl YWQ+PF2AUQIcR02grOCc rS4kE7KTFCsEXtamIHUP CSpHBdZmuhFeMX6tpDTc ZXJu IC8+PR2hOAVqWxbxrSBv k2B5iGW0B55kec5wLXcr xYZ3WJZlZzOxqimoy3zb nDw9VYugSjpnSxWi EDKatG38OXB0zE85Uq32 fQDnjFJfa4nkiBu7QyUf YTPnTUV1oWypFFsmm0Pd UDPnS67mcFAkv8A4 IGNvbGxhcHNlOyBlbXB0 bX4jCAitsnvjd7hirfbl Lwr1qv67yYXlq4J4yYM4 O9NkqtS0TKFyjDUt KjqoiTYEzO2ffxgsy2bv igsdOmXrEQLiBUn8WIo3 AABbdLjlMhMhNX25ESD6 EJXkrnTbI5GyHECz mEatRpG5u1N6Qc6YM3IQ NefmG5AQOMMBBBkajZD+ JQ19yy50E3XcAnoaHgj5 EMKgUPM8aHB4mL9t QHWlCKywz5C6aUI2U6Br qpMbos4ae5ekIETmHLgi Z49ulWJtm2V0QGUqoVT3 HZJnfWufRfEcbQ81 Oyc+HHOxrShqq9FxHnix y0ltv2vuxBa0AfpwUZEn uuXnrVipCQZ9g8ZlUy2z PZKzqNT5vNW8iN4g YfYvLfA8ERmaX976YjZc xHRpMdjxR85xF2NelIY+ QPBxAuf3KUOuqTivKJ5r I6RsRLImibaqaQGe kVsjTD2bZEYnlmwxBVLy hD9pWWQgG2z9EsYnVbL3 PLxaQ4PyMMWtwbveTk07 tH1gBlYnGjC9REjf R8LgwqX9INJlnXGtERtr SIG2Y43ic2N8BBYdHLIu GRH5dJV7bF4zkPdlylnp bGVmdDsgdmVydGlj OJmuWRnxX740UCHxzMlq PkNvZGluZyBEYXRlOiAg MDQvMjYvMjAyNDwvdGQ+ FGZtPLI6rGcnKOLx fUNkDFfdWf0qwYxnaXkl LV7tUWShrjicYNJzqU7x GXUsrGNppUvtSS5cYEHk ovejh666DjVkDMA0 YEQhaEJqC8OkcL6aVhGb FPKlKQJnQ2DbsPXjJGpr N310NWirUfD6VZShovFp U0SyOUJxcUpqCzK0 m7Z2Yf9My3IysknjZ3Ik wOMiXwTxXopaEXg7T7Uo PjwvdHI+TH53PSRrSI27 YWt9ELH7oRrrAIty WJVpY3PgiB6jSvKgTOIt ZGRkOyc+PHRhYmxlIHdp ZHRoPScxMDAlJyBzdHls QM0sTm9lDPXkEWFt iRviaFLfIsPro4duKYUi MUbaZF5htHbqZ7DxcAE4 RDYup8y3Sg69N03jC9Kj dXA+RZUlvSZ7yPU5 gD4vIaJhXgB5YTekH156 UbQfqVDuMgvbg7ggd7xh dDb7HiS8FFRxeqSyzPpf AOA5q1EmNj04W62x IHdpZHRoPSIxNSUiIHZh bMyqcr7tiZ9mRd3+PGNv gKV8cVZ8oK8hUdVnTyP2 NAzcJ158QyWjyUXp Jqgsf7ddr5zcrRe1YbCv TJTlhlFqhKphRMA0l3Pz Ho59R3JefIlwf5LeQgr7 ta46qXGxa0K1eNL3 E3VyQYAjaozziDIzmZvt TP3sNRHqwtpkYSYsuM7m CAIzB4f3ItCuObC6KDds Q1GbdiZ1SJFrhDKc EISbaHWKxT3cqvjfk1hh elxlLyDjYMRnSEc6ZZo1 GQZusMntMmQcQFM5FpW7 XCJ6dJTzhU1ieBai mzbsuU6sVaz+PQO4yRIy vXAATF9fPolwrFB+PHRk VRW9jCefHNihFOJidX3t EDNfV3p8ToXbRwL7 IRnmE9VelmW9HCTmjMUo KMDteBFQlG9vbvjep5jm vzooAtPrJLFtEFr5YXs5 LWFsaWduOiBsZWZ0 KgM5KIZ6xEGaoW7dmRct elgjhN5aDzu+QmlydGgg ZUP1DRy6V1OtOri0WSTc xTyuOL7jnOZrFBtf As5akAybwVxeYB0hVLBb arbgd017GpDno6ekQBOu tDQdHXfdKTW6B55cz1U7 QQGdEIRrCVJ2hSE3 xB8haZcswecllSOvzHxv riMthJcfAFtoDQafU031 NFBhqZinWvLmWId7F4Xr Xpu7AWKoqGfgAC5h kIPmRFceVp5fwPhckQpk CE1pIFXlcxpkc486TpPs u2cnAXMdiHUdFGeeCAU0 O72fb3D9CICqRRZr EIQ4cNR2tQ5cnCqmzwpe bGVmdDsgdmVydGljYWwt NIzcV132DHEeqTdjLiYm kTd0D5OeZbw0WLOf vQswRP3vtYZoXMgwOh8w eUinlWoaWY6jCPFqusri i900NpFws4zaESBqlEPu SPqtQOT8L63rv1E1 CNMdDKQlNUH2hPR4aW1w bGlnbjogbGVmdDsgdmVy gBzuWFpeOIebE149VTIw cDsnPlBhdGllbnQg CEsiZBn8B6UiErpteEW+ RV02WYJcBH52fSUuhAXj k9lbbRr5EcDmJQIbDQT0 sYqgMOgxc2GiZBNh S99gyNAnb8E9KXUtiEzm aZAyQeNfpCC2hI1jULqr cefag4ujmqqdZyxfr7hx tt71xW02D13sVOnh ZHRoPSIzMCUiIHZhbGln ri1kpO4zYq6+PGNvbCB3 xTM0oE6vHNHjDsQ3ZJqd O794AtEmvSBxXqfn p4uxr5ymsAi1DhM9WZNw hwGrjNwcBOL7n6SxCq80 J27sBIwoVZMbZKBaMWXb HVOlqBvuwh4miI1w Ii8+TXRasHR8lZO2yI1r PaBuHfN7XPooI170VpGu bBWuJstqU71vY8ZwdBX+ GWDpRkc6ZPZakWnl ZT6fvQIfLKxrHi3sIWI4 KtChCfTkIGneY0JnPIWa ozaxzveljFM7WUYeLSYh kX34Nt1xlPiyUZBw iZGDvX4ttndio9tmpohk FwHlSQIvUCk0IQr7YBXv lIdkSnBtIWB7RnM6TZP7 lLQojK2ghOxabgej sM8eF5DuQIWadltyXb52 mX2rGqVaVgO1QLnvSvv+ X8EJJffgWY2EM4wNCPhh SzwvdGQ+PHRkIHN0 bBlfDBacVJKhzD6cDCMf U1b4NiMkUrO9YDxgV5Qv MYYibduiPo60jX1iQmXi VmQ3XFubG4XbyoW3 OEQagABeKPhrVTS4L01j m3U0PIYdWPSoIWZ3jTD1 rQ5lpImlvrqenLTrsMey dmVydGljYWwtYWxp R632IXGxjWlwEcUxClD7 YkM6LiF6D5YtLin9SWHh pJgnIB6loJRrMWjvNk5r mPipoXvyZL8hRDUo gwwlAVGpmC9tQGBbwLJs zKynXQ6oUWSthhgwv150 VyBuTNJ8KLCsjLOnA7Nu sW0sJgZmRNGzBMEh O6TflSNgLJqcV613ZGfd CtF4YARcjxGbA3YgPSBq fZymHgJ5m1P9Sk85OWIN ZWFyczwvdGQ+PHRk TAJ5xLtkMBnfFHYpbB9n UBXkK8z5XkCmEdG2OJig X6OeHGLsgvdkZq94xN7e IlQmKdB9RAgzE2Xm quB2ASRkzMYxKPeqOUW0 E85vw8K1TUQtTMDwNIC9 uVY6xY4jxSfgnyfsaQHv dDsgdmVydGljYWwt QEbhT841AHFcqTboDz1Q HAG4F6PyLhw8VIAapXpz IU9umDItBRcvAg0fiBxb iTygNQ1qUQSmgcnj QMRlzG2lPSEneIDwpJzc SS6sEROogejvv769WaDi EIS8KFZdyGQvZ1ZtgD9e HaDlWCGvNDHwY9Kr cRXiQAezX125VQooTsC0 VIRoejDfI7BiPSJvuCwy KbK8u3W9Zp9PVChqkMU+ KF54ny90I4JyJnxc Dwk9UMYtGHU3gGE3bU0a ALLaLVyqg5Z0hVL4Q8Lt neLlej4rm2iqISGxLOgp G26zwRCtq6O0CYMv uDW0TEOzgDrgCtLuyU91 Oyc+QIBspYhah6AfUakq c5bzp4ajbOk3AmVgMEYd waAenIlcQHD1p5Zt Ve53T04yXZfaDJJzQJHd YNObIJMsjVftnq7woT5w Ii8+JQDarAX2jSX8aH1n XkKuGzD9YOchB309 MlLqbBJtYftor6vyx4os qHj5EwHoRDQmnlWbcLqo BZW6o2XtTy82J1AzxHot e6HxLhg8yt99mYGa b5S2kWX8A9SpLCKplsta bKWrfXrdNT2uFDUjdcmp NBDvdQ0lPOInR2k9YuRb KnA2WGgnD8EessR7 RSEnyNEgFENgeZEOuL6r jvhoa8ehsqbcPcXeEMSy WLo7QPh0RUMskYuyBwNh GYK1AmV2MQZ1bIOi vP8vuSdavuvmxS6aIyo+ WYv0c8fanSXeBL0ndOX8 WX08VP02gGNro6Q5aSW0 Q4OxNXUbkcyerfxn kOF6LNZzIPHaqT39Me0l bQgmPl8aTJTgLGN6LXTv lJWuN9NpzJ3oRtKpJWPd RYDaY6KssONoJOfo Y959EAbeXfE9KCUjfuWp E2UgGFBztObvOoW6j7K6 Na7FPY78PW57WL79bVNd b2M2aNI0G2RrBIHx bnanbmhzfCV2HGJtNQQy iT06Ww4vxHeaXv4sAWGm OXV0MIJhqMJtB1IooH4n OiSoMADnDMFwN4Fb lQGxZYppA683ZSyaGjW7 DZMwliKwD4SfAMEmrPtm NjG5v6R6Kl9IPe29PN66 TR59cHEav1P4pGG0 L5SiDYHnxmgwvabhjTE3 CBMzXTGpkQ83Rf9wrGag Rp5eDMZeNQC7HRYycCUo E5VueH3tVgKvWYFq ITXhU1SzvFDbLRkrC853 PVgmDxZ2ILJupoDyI9Tj XUNzhUfzJpV9j0K7Fn1M CEnqpio8X5AhItir dHI+CT94YURaQW89tRJf wRBjs1wqgDp9LjFhOCWo PFI8cPmlWQsvp0DqFQRu S59xcXQzs2F9FYTi bGx (more content not included)... [facility] Coding Summary HTMLBase 64 UyzcgcuvJUw9kNk+PGhl YWQ+BQ3TBOReN60ktCJa cT0hM5AJSJaJJbcqLWCQ MWcGXrZyfrWkKF2glVEk ZXJu IC8+HW3gGRJfWrxrpHFt q4D6kDP3Y71yhj6jJBcs gLD8VCTyNrQsuzoql3ml uKr4XUslOaldMkUu JUVosC63TOG3yD05Pj95 sDWwdHSyf7xliBa7DyVr QILeOIF2uVaoHQkuc3He DFOxA79smTBix0N0 IGNvbGxhcHNlOyBlbXB0 kL2vLClhygyhp2lsanbd Pnc9hj87wAUiu4M0vSZ6 I9MqgnE4SXIqiWZg UtqbpLCGtC7elbgji2pb onefTpUiMWStTIn1YWj4 AZTmiMbpExUiFH06IDT0 OGHvikTgR7UbFEEo xQhyCnH6w5X6Ms0VE4YX SwpmO1OTZAIDFJmakHH+ YS81yj94W4AiWeiqNnz1 MNQvKDD7sWB9aR0b LNKnDGttj0M3lIC1R7Jh kzHgra8rk0xbFBBnKNgd M48ygNLrl0V7SJDxqCY9 SMTnqRxuAzSgpE38 Oyc+ATNklBhug2TlRkrl j4rql7enyRk9VkseRZIu ptEioLnpIBT2c8VpCi8t CNFwmBS0vLU5zX2n ReUbDyJ6PGdpG007BsLg eCFdEneyQ49gC6DndLI+ DRQsDte2YROrsYvsSZ6x F2QhUOUlsiuhhVXp oHyqOG1tGQNmhqqpSGOa eD2aQRAdT0q5YnBpYyL6 AKtdZ9EhUDIlhhexRo97 iI9eQtUtQlE4VGyt N8NaawZ9LLAdaFTpOYma KAA0U43mu9U6ZHMaMXWh RAF9iKX0rM9gwHkpyajl bGVmdDsgdmVydGlj OUfqVQygY627DVUxwRjw PkNvZGluZyBEYXRlOiAg MDQvMjYvMjAyNDwvdGQ+ KNBkAAS0mVghFSMk oTKfJNuwUq0xuQihhGug EW4eKUCsgmiaCXVysT6h GFJbbVBizQoiYN5gKYDr plssa406JuXzUZO6 GKLxhTPlF3DpeX4hTcBs NEXoFOPqG6CqjSHfYJvl D277BMidQcL3ICEurmWf H0OySSXnxKwxXpR4 a2M2Sf3Zw7LffrxyW9Zb rDZfEiWgDcamGJe1U8Qb PjwvdHI+NH23WGUmSX09 WZx9XDL4aLxwHWdp EUDpV0VajH2zZyCoKOTr ZGRkOyc+PHRhYmxlIHdp ZHRoPScxMDAlJyBzdHls WE3sEu3hQCYnGDMa oIhljLJyGsJaa1xtGGVi ZMylRP6xtBqrL4RlsHV7 PVTdj7j3Qb56R37nD3Wh dXA+KWAhoMD8fEL9 mD6cKeOiPaO9TJsrE181 VwPnqJXkLqspm6qst6nx aYy5QjO9TJJajnTaxMko BWW0g0FoJk73E91f IHdpZHRoPSIxNSUiIHZh dWwweo1igW0wGd0+PGNv rGJ0cZN2xK2sSfOaQpT0 ZQivY368OyDwhJUg Rqzjj4hkp1iqvTf8XxBf WCGuxlBrpBgeUCT6b1Xh Nz14N5WgoHxpu2GrQkn2 an16iMQsd1T5yUG8 J6JxSJLzazzbgUWcaQwf IH4yMTQlythaANAvtS5u EJKaY5e0XjMuAaA8BVdh U4RyprE2CKFgtSPd IUQxdZEPiA0gvasoq0vt vaalXjYwQKSgYNs4AJq0 MEEyzQolYbVeEKL3XdG5 BPO5yNDteA2qoGsi nvysqR3mFlg+IFW1wOZy uTMHFD7rUcgnpFF+PHRk OWL3uRdsETitUTVxcU5s XLZzX3m7WpKoXcG3 CYjzO1UpbdH1LZFkrCXm BVDijTVFqQ5pwamap8xr vfvuRqZvCTRkZUq3OVa1 LWFsaWduOiBsZWZ0 QtQ0WKW2cYUjhQ1vgVsf hvbopY6hHbp+QmlydGgg HQB8GHo5S2IfVyk2CGHy kAugQA6mqGFzTMjt Vm7hvTzjnMciQD9zOCCh ulhpp218DwVfo4bxCHLs iKUtIRwsWGX7T62mg2E7 BERdRGClYSU1cUS3 kT2abWiiqhczqEBjmJqk neIjmFvlMPzuUGwaE917 WBFaiCxrCiRnQRp3C5Vl Fus8TLQsxKtxHC0j dJIdRYcwZh7inFriuSmt QF4nMHIriavhp276DvBp r5rzBLYpjESoQSolQAN3 B47tj2M6XYIhXXDi ERV4yWF6pU6cbPsmclna bGVmdDsgdmVydGljYWwt XWauQ475SWUupSbqRbCu bIf0B1JsWlw8ARHz nJjhQL1bpPPaQRlwSw2x kLiauXbfDP2iXIButirr f363PfHuh1ywYJEcpFCy AXozICS0O73hs9R4 TXDeRGEdINJ0vMG6fX4a bGlnbjogbGVmdDsgdmVy rGtsISlfIAyaE090ERLk cDsnPlBhdGllbnQg EWuhTDx5R0EdZgzfuON+ WC09ZAGbVU09wQRxtLSm i0cklPl1EtDoWAOdBBK0 iFxpGUzvd7RkARAz Y34hdKJwp8N7DJQbsKoo iYJjZuHnxMM3sU6dWCnl kgwos4owcrtfAxtui5yp pq92gE58V44wZJhr ZHRoPSIzMCUiIHZhbGln fw2wiL1tBu5+PGNvbCB3 jQX3aY7cWVOrShX9OJzh J036ZwZoaHZnScri t9reh9drdWl7TpU9GYTu myKdlVftYQC5e4QiCt57 M88aQPqkAVQzCDMjADSf XSTriSuusx9kfO5y Ii8+WAIheHH3pYA5iS4g TlXdBfS1RZwtX095ZlUc wPOyRspkI44tJ4TbwUZ+ DPNaAno6AAPbxJxf GR6eyKDcDBfmCd8jAPB4 HqQyGcQqLBlyC9SpZHNr uqdlfhsvyTD6IOFjTTAy jA04Oa3duUqgKLFl cQCXvE4pyauxl3hftbgh DfZaTERoXOq3ZZq7ITEr wMxkMnOkNFX8JrR1KSY5 bVFhqA4vfBkdpgka mA0wS7DhDDIxfnxlYr74 cL5dGcQyKsW5HLqoAen+ J6IPScxnTE8ZA4xWXRpz SzwvdGQ+PHRkIHN0 yMtpVMdfZIBltU1zRJJs M8x3SvEyBaD3YXvuK6Dt ZHLvitmpGe97mY9gJiZy XyY4LMnfE7HerjZ1 TMNxbYJrQNigIYP3K45d h0F2SMIiQDHqXIY2uRJ6 cJ2mkSyqiuqjdSAiwNyv dmVydGljYWwtYWxp Q453XYGbyVovPrItMqJ0 AwK8LxR0X4JrQos1JBFb gVvfYL4azKKsBOqpTx2p aHzffHurNU2iXPFy qzkxLBSyzP8zSOLecEHi lInzNM7tBAMpdrwfw472 HoAnAOE3XPMwyDErA1Rt qM0cNrVuMQUvXFEb N2NomBMrBMxiP239GUkz DlJ0FXRrtpHbR7PmGDBw jFmcNmF6r4H0Fj49RMHP ZWFyczwvdGQ+PHRk VBJ8qBarQArgSVRzvI3b RYKmU9j2UcVgDcQ9RTzb S8NcPVAaetbqZh35wX1y JfOtVtY8ANhuM5Ku uyI1SQNgfTOzBIucFQW0 W74lp0R2LHQyEHSpGAF9 hGQ4uD6fyVhmtntorTKi dDsgdmVydGljYWwt PIowA316JEDfgMaeRf9B XDM9P5PlChc5MXNgcFxi CE8bqBGpBZpbOq3wuZkj kGjpZO5mSZPevxqj WGWqkF0tIBRrnDFkwOne BS9lOOJzcajsz455GwIn GJR8NYFbwOOaO0LtrU9y SkPkCBArAOHnO9Jz hQRfXUshT283JDjpTwW7 HGObdeVlI5YnJBRliYgv HiM9h9D7Pa1SVHvtuEX+ AO02rw63E8CwWxuz Pmu8UCEpCBW1oOX4zT0h UFBjDRggy9G6oJC0L5Xd cyXzbh9fv8dbXADzTDrn Q69siTAlw1B3HIJo gZE3TYHziTecCiUucV13 Oyc+CFWbiHmie2RcCrhe w3bhm3ogvXk4HzTbQWGm nkBtpPnpQVF2j2Do Vs97P82fQEawXPWrWGCf FWHaAVZwtSxkmh9gyX7n Ii8+SPZikST2jZE5aO3o XkZjGxZ7OJydW920 AnCyuXNeZqcgd7isi3rv qOj3BjWhMKGrkhKqeTgm RUT8w5UiYq30X4LveYps m7HyTzn2ls68yIMm l2P5bKH8H2JkOUMthzdn yMCslCwcNJ9cNPDwffhr OPXfiR2yHMSsE4v4LnEl SzA0JWoiS5EkkzQ4 WYYavSVwQHSoyITUpW3p uelgu0lwcezhQiOeANHw BWj2TFt4TTUyyDrrYsWe EBE7JhU8YSD2qFDs sQ2esCevixltmP0hSgr+ EZq2r1izeZXqLG2apIQ5 AG40ZS29qXDdd4J6oCO9 T0EcJGGqnkbsrgeo nLZ2HKQyODOeeZ62Fa5p kXraAj8zCUAvYMP0RDYe xSFmZ7KqdG2bNvSdFHLo VZDyL2EeqMHnMUgn R914XXmeDoZ1KTRiwfPm H3OvUYNyvErgCmI5n9N6 Zl7AHA36JQ96TX33dYDu a1D8dGO8J8ToLOFt wbwtkhkejJP2HNYfLFSa mE28Hz3ceJyqJx7pSBBc VZV4YWTulNFuY0XhvI5u YaLxOWWyGCAhX6At tYYzAKgqE301VVwzEfW8 ABHsnaBuE4GvDYIenLwe UqI7e5E8Mw9MLj27FJ14 HN23bBZlq0F6uMR8 O4DhEWTntmwcnbddfWU1 THRvXNOoyW12Fe9vgLzs Wy6uNRWwHAS9KDPfsQHr X0HjdP4gAcYrADYc CEZaS0KvzRWlRGylY160 UOkoOuF0HHOguvUxX9Pu PAEjhEqdLgC1r7G6Sk6L MWejaub8H1ObYwkx dHI+ZY61JCPqZM17mASk oSKog1fjbCd7BzKrTGFo JUV1rTerXPtcd5ViKWAi R95hmAHvq5M5ERJa bGx (more content not included)... [facility] Wound Care Noteon 08-26-2023 Wound Care Note [id number]#1. 00OTGTIFF [facility] Coding Summaryon 08-23-2023 Coding Summary HTMLBase 64 XwmdevlkNZj1jLe+PGhl YWQ+LJ1THVGsL51vnZKy vL2yN8PDIPuNMpcdFRWO OFkHSrRmnmNyOF4ohVAs ZXJu IC8+CU1jKFCbMljdqPIz f6S8oYK0P24fsx6jEOlv fEL0ZVAqSjEosjefu8bo kOo1UJaoYouqThWt CQKsfF05ELN5zR23Md48 fBBfwFFsh2bvoUe1XcTy NETbBVQ3fYkdSPwbv6Nm QPKhQ58scJJim4U7 IGNvbGxhcHNlOyBlbXB0 fM2tQBkcmxczh3rhzbfo Anf2fc69pARlg2H0uWQ9 U1ZnusU4TADopAOo QilemTDQlX4fzaaag7xj mecqTjIwVXJpPAt7IZz1 ZOLdqRmxSaExUA46DWF3 TYIwehIgZ6AdZCIc bXpjUdY3a3F7Uo1FA8UP SflmG6WSFMSGGXtzeUW+ TQ99tl46O7EvHtyaIrt9 QBLdTVK8dJQ3lN9u TQUuARnwn0Z6fNJ3W5Fc scEvjf2oe1csWMKyGYho N79ibPDiy5B4SKMxwKF1 ZKMswNgsMuIfeD67 Oyc+ZGDylGxtf1PiIriy f7yni9qzrPx0KbixWGOj yiSieXxnIHJ9t3QwNu3d UMAqhIJ7xFG2zU1f RhKpYqD7GFhaB852LbQa vNIaOfgeO28eO2XubXN+ GIXqJga0XOMtrIztLJ1i K2RxHDPielmohBOd cXhcPG8uRYZuezzaNVUv uS0yLQClH3g2TzSqWkM9 SBjzX4TeIRUwfjxiAc79 pU2nAlKrCaW5VYwx W6XahkC4LRHcxKVyBDzi XWK0F90hi8I5NUUyRTEr CWL8qLX7jD7adUvunsfg bGVmdDsgdmVydGlj CUefUCyoL981YIVvsAka PkNvZGluZyBEYXRlOiAg MDQvMTkvMjAyNDwvdGQ+ YLUuNWS9eKvgWEJk bZHmBVrzZr8gcOcveWmp RY7vMQNbsbgvNUTxgT8c NYItiGYigNzbDC7gOIDr smosi341YmUqKKW1 QJPbxZEnE9LqvH1zOxWe TFBiAOMeP1KufXGtKBwu D384DOstXsY9ZHXpuhPv L9AhZHLslXtyBjR5 z6A1Aj8Yd4ImgdpdM8Su jJWvDkXvSnwwYWe1Q0Ts PjwvdHI+TC35RAHoTK70 KDm5DQW2cExlGWwi AWVdT3BefL2gQfNrMKOp ZGRkOyc+PHRhYmxlIHdp ZHRoPScxMDAlJyBzdHls BB9uXc8qZKFeGOXa cHpzpPBrLuZos0ngNKNe SJfsKW7tuNsrJ8LdkHS6 ITFnx6b2Wm20I95hP6Yp dXA+TGLtyUR7xRE9 pQ0iAiCjTaX5UFwvN146 CkAtdWUgZmgwz5yjx2xp rAd7DzR3CHUcjxSpgXdd FND4p6TbCm21K56n IHdpZHRoPSIxNSUiIHZh wZbyxj9fjE9yVg5+PGNv uMB4iUI1jV9zNmAhCmM5 RRdkO383HlDjfAUt Pggjw5oge1vkqDz9EwSt TLPbzgGexRunAOM9u0Gd Xd34N6DngGced5ZhCqr8 as94pKUgw3J7lLO2 L6IaDQAxyznpmGKclKbj RH6zCJOcehlgVLRetS4b STVoL5f2BvQaCbA0ZZhn R5JeujM7JVOkkTVz KYHekEHLjH4dtkdlg9ks omjlYeYvXVVnFHa2LEa4 MAXhsNzfPjNzAXN0OcB5 BWY0eVNpyN0pdNmj sdiclI5xTni+ESG1eIDu nWWAIN4rSkrteKM+PHRk SMD0nTciCSjaJIKqnH6b YQOuC9z4WaWgUcI5 VGatO6MnpkQ8TUBugTFb MITnmZFMtB0rhpjed5re yaprRsVsROZaXOj3AJr0 LWFsaWduOiBsZWZ0 GwP6CPX7oHSfnP7nlAyz noxraX2mYcn+QmlydGgg CCJ5RQl5F8ZqGxf4HMCl xBcyTQ2vcKLpLTuq Jl8meJjjiRkcHB1vQXFu yievr155KrNaa9hoTKRg hRCrCYgzIMT4N69or9R4 AYEcWLYqDEX9hWH1 vM7tgJyjrvwkcSTliYok wlCzzJbcLTrqKQwbG406 ZTRgaBfwRsZtMVa8F0Wa Xwm9YLCmnZytQP8w oGKlYRdeYs3rhFwrcBmz KR0xPDBgrtrsq013LmWl w3skCYFyjHTcFJaxRBS3 N27ae4I8DZZoSSFx XST1iCL7xF1xlLlwoftb bGVmdDsgdmVydGljYWwt KEwlI283NWJmpBalAhYc vOn3J9LkDpc8IJTw oPstXZ0llJExHMndPc4j gAhavMktOF9zAUQuhckq g379CaCvk5dqNKEtoVIp EOryOQE5S93bb8V1 RGVeLEZjHCH2aPE5nE6k bGlnbjogbGVmdDsgdmVy iMwaBEvjZZqcO150ZBKx cDsnPlBhdGllbnQg EOblHDt2L1YxBjnnmUT+ UH42GAPxXE92fKZyaTJu d8aheSm2JzIpXUQnTYQ3 rPqfTGdzp1IjKWXn J94epPSjp3F8EQQzrXhe sIHmHfBpsTN6jJ8iMXiz naasi5mzgtauElveu0qp xc87kA58K18zICux ZHRoPSIzMCUiIHZhbGln ya5ugD6pBo5+PGNvbCB3 rKJ6dP0hDIOgMrX8MFnu S439DaHrnJWuRpld m8snz1yklTy0GhI0WTBh pbXjqPopMND2r6AwZo63 F37lQAecCWNmIAEbNOAf BPYgjBtmbh6tpP9b Ii8+XVPzzJX4cWC7vG3k QmRoXsR8JQluR653VnHk kAExQiwwT54mC6FfqTK+ AJJrQyc5WKRprNrr CM0ruMJhVMtcVm2qFWF7 RmRwUeQeOLdtE6UrUVTz kuvyauglwKS4OIIlXOKr pI09Hb0meUyzCHId yZWRxL4cljard8manjnu YrCqIPTjUTq8QBc6TXCc wMzcPdYqZXE9OdH3GRC1 eULuvZ8lqBcfeokn aH9nR4XuTCOskhasKj02 vQ1dVoEaXlA2XSiiPnb+ G8IUEanmQF2ZP7tMZIyu SzwvdGQ+PHRkIHN0 iCohGIhvVPTviN1fJSFc P8i9CsDkVeS6WHthL5Jo WYMfkddrLh44dL5uLxKz PhL6BCknW7IwbxW9 YBSukQVaZSoyEAQ5X91u h4C3RVMrJSArDRZ5iJX9 pL6tpVnraonwzXRgiOnx dmVydGljYWwtYWxp U069OMCmoGmtSkRsFeW3 BcT2RcQ4B8BtGcg2BYUp sFvkUE8knHGdGUfyGe3u lTsmsCezNF5tAGLj vlqnWPDhlG2jVZQbhYQf uZllGK9bXBBbbbpii477 QlHcLDQ6KZYqlHOmS7Mh dE9nOsTrTGQgIZSk C9WktLSgTDzkU027YEza JwM4IVTaqbXcF6TyUEEc fDbsSyO1h2H5Cp60VUSI ZWFyczwvdGQ+PHRk ULH9tXktOOpuEMWaoH1k ZJGxN6p2NvScRiH3XGov Z4BsLBApykzeMu34fI9p ZbIgRdL5PRbgZ4Fr xyA2BHCioAQfHTfzJMZ4 X55hk3S8ZRRwGTArXCP7 lVI1jK7tgWcvxuciyREn dDsgdmVydGljYWwt WJonV159KWIcoSqiKf4L BOD8C8UnLad8KPHfwYtw QB5xtSHoONsrWn5ogKyx yRtnQQ0oMLQdszyk FIMykC0cWKOzgCSnvLlj BX3rGPBmsovwo825RyBb VWS3WXHvmXTmD1CkdJ1q ScTuCEGkMMRgT7Mi qPAcFPyjS409SBzbQvU0 RLZunrNdD2QzAQXnjJtr HyK2e4L4Vz8FPLnchAF+ SL22ss79W4ZwKutl Ppn7DTWgGUX9zCY7fR2q ITFbVEjrf8Y5iIZ8U3Eu nsQzgi7cw7fdTRHrVBut D59lvQYtl2N2JXAr qFO0XFNmiMqyNbRdaB52 Oyc+ICRpjCjmr7SmTjug q2akt5zbaLr0GaVdIITd aiErhUveTRJ3a7Yo Hd97Z11dQCyjPCKnPGFr KJRvMGKjdZnwva2pmV1g Ii8+YORyrZU8tWV2cB7d EeGcAiX6CKwuQ325 JfCrvIRkDghzy3npf1nv fGz8IaEgTVYuorNgtPro MUO7b3JhCf03L2QmvLks b1XwOuc9iu60sZGy d2P8vGZ5V9TlWUOttjkq lRTfcQjqJQ0sWAFboizn WZKpvS8jLZFrK6z1OiTw LwN2CPxfW1WkazR6 LMBzpRYzCGAxvNVWlZ0r aibkb7letprhUrRlCCAs UHg6TZp9DMLjhCneRuSh VZE5TnU4NSS5dSDe sL3tsPftjprnjW6fQdk+ OKt1a1yhiJRuWJ3fbSH1 FQ55NN97zUAux6E4xED3 V5OlWWCmxezwclux wHX2SINsMMNspI70Iz9c kWpuIj4eRLZgEUV4AMDl nHWkY8YwoL9jBxLjWUZq EBElV9WqwOJqHUva B989UOklPoW9LHAnchLi I5FjSRQqlChrJaQ9m5D8 Bn0LKJ38PD85OL31dRDm d4K1yOH3P9QkUEOu wwxfawzkmZA6VGRmUGGt wR36Om8diJmvZp0fBWRh UBM9JSJryVDtF6YxnV5u KbBmRYLuHMLhP0Ai iPMrJPvxW116OZtiOsI5 OOQxpiBrK9LhQWZixDhc VjR9b0C2Kk0MWb92UX24 FS80mRAyn3O2aRV2 X5ZxYBApkcacjfgnpVM3 GLRcSXPblF06Yz9wsFyo Pc0mXVEiVJF4OYReaPJu X3EbxD9yEbSwDGQt WYVeN6YlrYGoVIkfJ872 NRowFdJ1CPKnttFwA9Xa PGKwgExaZhL5v5V1Kw0R LVbrzdt3J5OuJlml dHI+AO74NJFhMT09oXQo tJOkm1fnoDm1GcKqOQXw PQY2bIaoTOmpz8RvOVRb D82apTDhc9L7RULq bGx (more content not included)... [facility] Wound Care Noteon 08-19-2023 Wound Care Note [id number]#1. [id number] [facility] Coding Summaryon 08-17-2023 Coding Summary HTMLBase 64 VzsssgiaTNc2lGg+PGhl YWQ+IL1VIFYeK12kzXFe mR5jZ7ARDNqLSutxZBON NApGYmPypyFlPF3ljZOr ZXJu IC8+VO0jHSPfOqbbuTDd o1C5pWJ4Z18soz3wIKah uCU2LCGiFjZvguzxk6cs sEb9TFlqHbqiEcKq HAGuyT31QWN1jY54Ki28 cLJiyYEzy8ikaIe4FeGs VLZyTHA4jHwwHMvbn7Kd LIVfX77ceXGwh4B3 IGNvbGxhcHNlOyBlbXB0 gI4hYOnambwsp7qobinn Vlv3na76gFUve2V6lAO7 E9IhvmW9OGCrcLOn CdfosIFVxS8mnbwzt4oc kycbMqToVWEyAXs5ZSv9 XTFltEiwZhRfOA38TVD3 EIQyuwOfT2CcMPXj bVmzWoV3d0N0Ik6BH1RG VewzB0ZRLOCMQXlsnZE+ XU88gr98B4BuKlxcGlw9 SXMxCQU5zYG1rQ3y QSLmZQleo4I4mKD6Q3Uu bgCxdx3qb1haRPRmJPgr U24ejYGbu6R1YPEzaOP2 RGKkuShpZcBxnV05 Oyc+AIPxiDlwb0BeWkof v7qtk5qknBy5TiowVNPb dqNulYqxHPV7z7DsHv2z ZKDmcIQ8qLP0eS5c PeFdIgK0DYnoI052WiHr pCVnJrehZ29xF0EubLV+ EXRnTwk8WZBvyHvjUT0a D8GjFASjtrldpQGu pOrgMD0cHYUnwpauGYAl cF0eTSKpL7l6RfEzBzC5 TLibK0XgZJLnqpioRb03 qK0xFpAyOvH5DGho B8WolbD9YMWdcJRzYNyu XTE9Q22lm4H5SNOrBEEx XBW4bRK9qR7jhFltocqo bGVmdDsgdmVydGlj CYbnYTivR711ACMeeZfr PkNvZGluZyBEYXRlOiAg MDQvMTMvMjAyNDwvdGQ+ SSWoMMK3oDsyMIZr mFMhKCtqXv1acVlgiYof AT3eFEFnusjoGNPswR5h RKUclHLwiXktSR7sULOh zwipa927TmMhEIA0 KODlvXCoS6IqjK6aXhJw IJPvTPQrL2SudTApXIsv P852CWkjRgD5FYQmlcCs C7DjMXDolYsnEoZ9 o5U4Ki0Tu6UqwglgO1Vn zOWsXjBuMtuwUIg0D5Mx PjwvdHI+RE49VYMnWC97 XYl0VLD5mUkaMDxm OABdZ9GseX6xTuJnXNSg ZGRkOyc+PHRhYmxlIHdp ZHRoPScxMDAlJyBzdHls OM1bKx5pJATzKTFv kHqtwJLbXpQpx7qlWXEl ZTtlDJ6waXrrT5ApjJW7 FMIvz9c9Gc18D43eH7Bm dXA+VUCmaYN2tYJ0 eV0cGnWiCdF4KGdgB451 SiHboSPuLwqtg1vpw5tt qLl1DuC8FEKrpbBawAtx BSP6y1AsEd24L40i IHdpZHRoPSIxNSUiIHZh lLkfcd4ckH0cSz2+PGNv jYF1sLM5wY9mKxUzXeG0 TArgZ504BwJyyVLi Frrhf9hxt2uysWr0XvUk HJRjzdLchIngMVC2q5Us Sw66F6OhuAvab8FqBhi4 ck74rKGik3F3iTW6 F7FtTWHzsvrubLMehQyf VE3aSFVmehqzAJJtlJ5i EXHpG3k9MtXhViN6AQvj Y9JsboN6WIUtcDGi XQUzjAGUnI1rccokd7ov jfkrFtWtNAMwTHn4WOv1 NXZryOyrPqQsORH6TwJ3 VIA4cNPckQ7dtHkk qpishI2nIsl+BNM8xSQm rILMJE7tAtcghLJ+PHRk HAG2yAztVIytIGRueG6y DKApF5r6EsUtTvT4 UHxjP2XqkqE9CGDkqIAy UFBxqGLXzX3rilpjo1ol ewxmLiSqRURbKFa8XVb0 LWFsaWduOiBsZWZ0 GgQ3SYS7cNMmaW4hrTcf ybgglB3nPff+QmlydGgg YXN9BAx0A5LjEpy0AFEv xJelAS9nqZNuQCml Qp4xwHecfByeDB7jDRUx ghmwb068PtKmh7msYAUv iFVlJQiwOGN3U12kq7O4 RSRfGZLgWWK8rZU6 jO3txIshjcfnnHMlkNzu prLgeVtcPAvkMYmtL724 CKFuvMneAuPcGEr8N0Te Axi4GJTuyLwwTS3a fYJgBJceEj6gcLojwSkc WG1fVMBnyqezi694WfBu j6zpJALaoFMkLCsbQGH4 E49wt9V5QWIkZVOt LMK9oAA7zN7keTmukpne bGVmdDsgdmVydGljYWwt BBdsV194WZVccWfwZmLd hEc5R6CaEfd1ZMFq hYcmMX4lzSQkYYbqCd3k wQfjyLpnCM6pNNJseqsi h026GfMjh0azBMWheCWj QNtbMMD6F06xv4P4 IBJpNUBlSVX0sRG1cF3j bGlnbjogbGVmdDsgdmVy sMnpJGwvEFpvI022UKPn cDsnPlBhdGllbnQg OPgzCKa6P4RgHivrlNH+ BL79MQVtGL41jTNgkCQd w4adbJd0NqZjDNWuABR3 cRtjMNlpw8FnTIRu U52fgQEux5H1DYWtaKrr jRVuDsEpjJU1pF9fOLos iosxn4vizphxAgkee8er ih24dZ31B42lHMni ZHRoPSIzMCUiIHZhbGln lx2ahQ2tMy1+PGNvbCB3 kYW4rQ1rYSEoSqO5DOdl A312OkEwoDEvYehn u2ttg9lmlEc1UsR5DULj hbTmiHbiJYA5w2IsYb10 L22eJChmCVBfTHWwLYQx NJXzhOxset9qmA2u Ii8+PYOxcEV7yCA1tV1p MuOeQlW9NZioK814KuVz hNZlFnegD39wW7YixXA+ VXLaSkf4AAXmbXpf PV3bfTSgEJyzEn9eWON0 YbIwTpVhFUwkX3BpFCYh xzubreiuqMV4APRiCPLc mC85Tc5swCzeCYEy tFPRlW8rhhehd6wxngzh XpZvJUBsSDh7ZBz9MFVx sHesNuVkYVG9OiG4FWN6 jQXjmX4jeBzkbesw uW1dJ9KeUKZvlisoJw79 cC2zZtPrCfM0HBchEoa+ S4AWWzvbNF1HM7eGIWmt SzwvdGQ+PHRkIHN0 zPekKTpsJFUzeQ6kDXXa L2y3UbCnNjX7YVlsR2We QPPgvtweUk90bF2zRkCx ImW5KBhwC1NdmnQ2 ZECmaQBjTDhuNGX7F03l w0F5VHRvQNEzIUH1kJL4 yK0mwZalnwewmFJiyLfs dmVydGljYWwtYWxp V204MCJnaTzyTiBcDlO3 LoY8XlU6N4FmNds7PYFl aAykQG6qvXNeIRwpDu3e wAxaaQvrKE9vNHRq cekrDDIrdU5vWGQjaMPt wCjkHB3rUKYwzbihc509 OuMxHYU5LUXzfJGwD2Zt xS4mEpGbQSZdCBZx P6VfpVScESkpW186APpp XuD0EKIbnhDiE1ZmQJRl hPoiYxF2m7N3Ii28XOQU ZWFyczwvdGQ+PHRk OXI7gSosZCikDZEszP3z YYEmI1q9CzEpSiD5VEbj Y0XmORTbsjebGa71aB9h FwLrLoP3GJckZ5Yg spM0VKVtnKBpGRmiQWM3 C83lk4P3MZTuSLZvCTD8 cHY5nY0gyLpgeeybvRKw dDsgdmVydGljYWwt OQpfI953YQHvvLwvXp8W RXK8N8ZiIbu5VHNryUjz ES8sjNXnSFqlXk4nmWut vFteVI5yKGDotvga OJIwiE1bZFYgnFRmuCnj OF1eFDJnbdsdp943ViYg FBE9AXXacYGgE2VufB3b NdVhMKKsDWTmQ7Oa eHBdRSctD468SCcnJzQ8 MHLzgxXmA4UqORWfyBmz SrH3h3X9Nc3SNSwblDS+ MO66th09U6ZnZjoo Wkf3ZBYdXVW9bBY6bM9v EBGbKJxwx7M2zXM0G9Vd iyVsoh1vg7zgOYMsFGtl O15gvZPpb0P4CQPq zEU2JXOdlPvuDvLngI85 Oyc+OXQyyNwzj3WdJqiy v9aye7gnqYh0KxUsAMHn qwTckSojVME1f4En Hh53N46aGWtmLXNnOROw NIAiLJMxyIeohc8yyR3e Ii8+AXPicBI3vLR1mS4h OeJiUhK0AEncQ745 GmHhzXSsEekrv8pow3ga wCc5VkNfBWRubjVojSbm DAA8p1VqRi02I4GpoLuh g6AwPal9ya61jTPg j5O5mMF3M1EhIOIcnrde jNGgqIslTM2lQSBkfllv XVLduL3kIGDqN9j3IdRh AqT1ESeyM3UaaoF7 MFEycGZwEHNssIPFxP8i uyibz2gagnadStQyQLAm MQl6EWi7LZZnxGoxOrCx ZDT8MkS6DRR3wUPi iF7rtVgwruumlN4oXwa+ POs7s0oqrUKqMN1jvKZ0 PV70QC14vKRvr0B4zWO1 F3ArRGSxnvuktkhy wPU1TBEfQNWheJ44Pp5c cJlmRh4cZEJvOOF0VXKu yAMlZ0RezH0fIeQxXDPy YTLgR9HhlLGmENqh W452JJqdKaL4NXWinsLr J8NxUUEjzIcxJmO2s5W0 Ih1TCP15AL23JT37iRYt g5Z1rOE7B1VkJNDb pluyedcklXP8WCBdQNMv hZ34Ml5etYflOm7iDJFe KFT7QLCybDAvF8VnaZ9c KpCsOHGmVTArQ9Bs nXLxFZfiG073PPxbJlZ6 AAUazpAhD5PqBZPfdAgc UnZ7r1O9Oh5LVp35XJ44 AC67uRYzs7G6yBT9 O8OgHMEhczabuocioNE0 GWOzJSCpoW21Tw5tyJyx Iw6zAUStMAU3BNRanYRn Z5GpgI8lDnMeDCMt PCRaR7OqwZDfTRezC495 FAqqCsT0NGRxxqUaJ2Ng DMYxbAkmEoD8j7S0Ce6Z HXjkahm6U3EpViya dHI+WK48EBVzTU81dWDx gIFsd6kvoJh2MfSoRJJd QVB1xKieDDtnn8XfGBKn E01umLGxc3W8BKKi bGx (more content not included)... [facility] Coding Summary HTMLBase 64 YnuivgnuXCi6fJt+PGhl YWQ+SH4JVKXbR86vnBQt zW0uN4QGFQaDQazoMGNT ZNuSByYoteGbGY0opZZb ZXJu IC8+MH0mRXKfIecwnXNx z7T9yHO4N00txd8zCNin rWQ6LGTmFjLarenwu1fn yLu5RWorCljfXpNh IUDqcU49JXD8sB19Vh48 bUFwpOGai0zttUn8TwZl HWIiMUJ8lAqjDRhxp9Um FZVuN93zaGOdk8Y2 IGNvbGxhcHNlOyBlbXB0 qG5vMDfocfeot9qwwzee Kan6qh15pWWly3K5qGI3 R9JvgmE5PIFnqLQw YzqrwIFKeU2xbtayr8vq bzatBiHjALDcEIs5NIr3 XWZodZxsBsLaDG87DYG9 RSZsqvRiV1IgCBFy hNfiHlZ6x0S4Qp0SC2PR EnqdP5JUJCEHESfdgAB+ BN50pc47V8LfUsivEbk5 NUJhAKP0qRY0cT5q LILeGUsba8I6iFN2E2Ws kzTkxo3ih8kiOYTeYEbg E36rtHYku3U3KRGtlID4 OCMvwAogBxXfdS38 Oyc+ROXpdNqfo8JrQuez c6dyp1kwgFn3PiteDAAm qaEpeZvlOZT4u3OgDu4j JLSskNY1kNN4vF5s FjGmBdG9NHxtE714TrGb nBMaKxeaZ03pT5TpzQN+ HCSrClr2ZBRlnUxlQV4t K9PqGCHnpornrOSy iJczIU3gEJYyisyvEXBy oU5oQQGnU3d8PvPsWqJ7 GHrdO1SpXAFpfodhJj95 sG8qAcIqOwG7TYwk L9GkviS5QNCfxHLuNXbx ZVG9G88yr4J9CZNuCCVg IDY8gRD6gA8deGyywhbu bGVmdDsgdmVydGlj INinBDllM172CDAhsWuw PkNvZGluZyBEYXRlOiAg MDQvMTMvMjAyNDwvdGQ+ NAAiSEG7lEdhFMHw dCYkFRluVk3ggJuklIcy JE9yLABjatwmFNFltQ8r VYXtsOWzqHyoHA3rKKNe mkpji768AhGfAQE2 HFJcuDEqJ2FrfI3jUnUz IGRiLZFnT1SvuKJsZOoc E973BGdqNgY1VDZbfyHn V3XvWAOydDxaNhD6 z1I0Xp7Gb2BcppviV9Ja jMIkFdFfBkzsQWe3S8Gu PjwvdHI+WG91NQMaGZ91 AVe2TUB5mBlrGWgq NLIwJ9ZlbH1cKuZvSUBi ZGRkOyc+PHRhYmxlIHdp ZHRoPScxMDAlJyBzdHls MQ3hCp8uBSEtXKQt dKppmKHdVnWrf1pxWAJv CGadIB1gaGnbK0QowWQ1 TXOmh6p1Yj80R96sD0Vp dXA+BPQdeHT9dUA9 hH4lCgAlGvV8NQsuO637 YjStiRXrZrhyo6hgl0qs hVz2MmM8TYMffcUieHxb BUO1w0GpPk29G97l IHdpZHRoPSIxNSUiIHZh mPomrt1puQ5dWe8+PGNv nYL2wQN2rA4qIdXnJjF5 HPcpB418OrWitGXz Ggukd6fpt9ebgPb1YlNd DUEnvhBpiMduFGI1f9Sc Uv52I0KyoBbsp5KgRjw6 uv16uKTwg4L5iFI5 F3VdEGXpjwwgwJWydEye EG7oFKWldwjhLSLfhP7j CBLjA4p5McXqSgY5PSaf G4RzwtN1MXMfcZPp PMVnfCXDmH3bbmsvb8tu ixvwCnHbQPSyAMf2RHz2 ZYKatWxbEkLvUZS8PzI3 VGF8cNUxuY8jmJyh ywjpbJ5aOkh+WXE3eJVq jSJDUI0lXkzdyIO+PHRk PJO4lPxyFYphWBBhqC4x CLYsT8i0WrKtGxM8 PKatM3KdwbS4CEYliNNs SYLauVSGcY4nwiben5vy tzpxEmYrZJFeBRi7EYn5 LWFsaWduOiBsZWZ0 MwL3RTW3nTSnqB8lfPkk vsvbqH8aKhw+QmlydGgg ROB8OJj8O7EkBpx6SDMe fVxiII9qzHAdEAro Em8tzGvibSlvNZ3oRNNi fncix112LnMkl2wiGICy tEFsBIvrDMQ7A51qo0C3 PEFkMGXkCYG5wCQ1 qU3yrRuskbygkVRdaJng xvVmvWqxXRgcBTsnX620 AAAdiLfePsBbLPj2P5Ol Xle1SIObkUssFR0o dOCqQRhdEa2pgKwhnSzr IU4jJPCwjvaty683SfBz o7uyJCMikKPsOXbmJSZ1 W97ry8U2HJHqNHGn TTT2aKK1aR0gcZteiaxf bGVmdDsgdmVydGljYWwt JYumQ211ECTejVcvHuNl cBh9K9LiMzf6YGQw qNrcFV9sgWBxIDdlIp6x tWiabLkvPD0lWGQgxtfy k291EvMqr4ezZTMdnOCq PAftLUR6X49oj1Q0 AQChQUKzEAK9lQT4jO6c bGlnbjogbGVmdDsgdmVy pNmkMLolUArsR637AOBn cDsnPlBhdGllbnQg NYkdZDh1U3TeJsiulZB+ DY87CSApQR25kFBxaFIr j1zpqNg7SsBeVFAxSCD4 dRdgQAsji9TmYYBu T78gcQSck1W9WWFxbKeg eVCiHeFckBW4cL4nOKyw lgsxb5kywhcpPnlqo0gg rc97iD32R70zMFab ZHRoPSIzMCUiIHZhbGln ln0uwB1aMn0+PGNvbCB3 oAY3dD4aVRTdSzT0CBoi G632LdNpgLZcNmfm o3kpt5ngsKh4MuK8EFEo atQyjZbzEZA2g3RbRx99 V28tYVsuBQUcTIZhNUEx EDMyfAfioe6rzO8q Ii8+UAWxsZI4cWF9gT1f EiZuXxT9DExgX814JdBd tMOqVygaJ99nO1PjyXW+ LAJoQhb8NSEbgWnd OM3ybMZlWHusKb1tPOK3 DeGeEuWbZCsmY5WjBPXt kofjfyuvgDM7IIEsOUDy oB07Uk0ifJnuBUQe cIYOgG4zaczhx1rlddxw JdNiMCFaDTj1OBk4RUMm yPmhBbIxGIM8VpT2WSN4 mFWffD3xrSmehrsd oO2lO5QlGSNerlxqTe90 cV3dOzQsGcS7SAomOdf+ Y6ISGdiaSK5MB0dUDHpj SzwvdGQ+PHRkIHN0 tUtnEOxlAECiyR8yBBTj C3a2CuIfGmK5IZetV7Lv YCLurlvsTp39zJ6sGkJh XwO4LCmdU2CxsmG6 LGBheGUyQGflDLF1T12e u3D6VPFhWCWjDKB4zIY0 oI5vwAqvnctwjCEdpVkj dmVydGljYWwtYWxp A861SKSuoRgaEjFaGnF9 TlS1ZjY6O4UhDqi1SGTf gRwkPE2jhOLgDAkiNv1w vVzgaOtgCB8iLLTp gvrqFPTdxN8kDBBzoWTq wGvkDJ5gOJGqqxjfm995 QgPoXQU4TFJqzNBsH5Ed oT1aQnQlJEWbDGRv W2AxnJZoDVobU666PUxq EyN0NQGlmoXsD4WqDMHe dLymTdM2z9V0Xo22TNQY ZWFyczwvdGQ+PHRk ESI0nBftMNpcIKXvhA9v OAPsC3y2FyVcIiV7FCyz J7OhAHWqzywwAg62xR8u SkZqDmK9FPqwU5Uk luO4GZYmkYKqOBwcIZN7 A66mq7B1FASjOKVbLRX6 tYL7nY5fzDjebxfzmVHi dDsgdmVydGljYWwt WQhwY955ZZCcpNopFn9K VYH8D9PlPot8YVLtxRaz BL0kfHRoVImiHn0qtWci qLmhBY5vTXHazjrt QITouP6bLJZthRIeaBbx XP8zKLVngbldl799TqGb KAJ6WALjlFFuS9InuZ4r OrQiVYWkMHFhT6Ih kMUiLJnqM194FOkxWtL4 QLRxvmNsX6KzZVSaaLab BpT7n1C7Up6OJDxkmDG+ VE08dh80E0MiHoqy Ejg9JOFfFWR1eZN0nD9v VWGhDYwfu7X3iVQ5L4Ny juQdsx4nl1nqIXLaDXhi U59zeMOoq0J5BIMa qVD1DVDlqZhhVrGjsY81 Oyc+CBQgjFqho2KsJebm o4ocs7vyxOb4JxNdCIQd clKozYjkYKS9o5Ce Vw94I76wYSulASGsUXMs WHPaNTCyjJatli1xwR6z Ii8+UMOrbZK8hDZ1iS0n DvWlZsY2FOqzE076 JpLmeINvNgrap9asr2ei uIz2KwAtRRPtmwZltUav IND7i2GcBg83Z3HrrAdr l3HiXis7az77iLXd x5W9iVA8F8LcWGKqxcep jORgaTpuXM1kYBMxhsin TRTmzU3bLVUbI5y4MdOf IeR4IUouV9SpzaG9 JJLytFBoFWNztSPAtD6o dtjwd6idqabcUlWlMCCu TYa5BDf3CBRxsZyiQoCq RXR9SdD7YAU2iOTx sQ0hlOdvhupqgW0eUes+ FXe7n9osjFPeDO3taTS7 IT44TG41tLLjx0H7tOE6 A9QhGNWxlezusbvu iTJ3TLJsOUKttJ40Az4y bBucNx7qKMFsEWF4QKQc dAOvP5BwcN1gEsVsOEKd HAErS0IurZIhMAsi R320RUpaMjO5AAUtdyUf I1TgHJEehTtqLvQ0c4M0 Ls8YUK68MF65TN27lCFl g4R9cBG0R4RwNWCe ssladzavgEF2UGBoNTRg zZ43Ys3ccSrdTj4kVVXo KRO8UVYroIGcH5QuaE5z GiWhESZeLMNcA4In rFFnPWszK702JGkxAnI4 YVCgpbQxM1VvQZRuaGjr KkO1v4Q5Qy3UAc35PP81 GS89mUGaj7S8nTJ6 B8UsRSKklzpqqnqcsGZ2 QCNoMRTczE53Nm7hhNui Qp1wCKJrJOD5MQVmrBTe X3NopS3tGyUtIQSe LGAlO8PujXZzLLhbR163 IHrbHqK6AGBdahJjC9Sa FRMitNmxBxO8l4Q0Wm1J NXnvifp9N6GkGfxb dHI+WY99GAOeXZ71cEPi hPMtg3kzqGt0HpEmRNSj DII2iKnnMRoev4RjTUPf F24ttQZgo3F8PCVy bGx (more content not included)... [facility] Coding Summaryon 08-15-2023 Coding Summary HTMLBase 64 NefqkofmBXq6aMy+PGhl YWQ+LB9CAGMvC32roZSw zH6wJ1YOZMjGPxjpMRBR AKdLVwKrsbFoNB9jaSJm ZXJu IC8+DQ8fFSWsEycjsOUa d8A1aYB0O55tfy6bIPzx nDD1LLCjNmLxeugfh1ko bFb6HKjwFftiKfUt ZHQikE68SVE9kZ02Qe44 vWHuqMSgf3idjHo3XnZn YIAgGID8vGjgYMiur1Qn DNQpK58kcZDod4H6 IGNvbGxhcHNlOyBlbXB0 yI4uYPacdgwmw8uocbha Lhl6vo06rOYws8G0fGA4 O7KiieM5SXYsoNTm SmljyEYSdD9asriyo1is irjaSaXeXVJaVQf2ZLb1 YKNvlPyfHrMbLL89TEG4 UOJwadQjA7QaSARd vNsmMdY1t4B0Yx3HS1HF HfidO3LNBDAZOKjasIV+ CF17oi16C6GyVpcyRjm5 OWMjMQW7zVV9wW8c AAItZIrlr0G8rMG2Y8Oe pjEtqr8oe7mmLPBdAHig I45waPCym5H5OEJxvHT6 ODBhfUfoTjTmeP88 Oyc+YEStvHqhs8ZuHims u0tue8mxpWa2IzbbBWRv hsRkoSplBCH5y4GwBw4j KZVmdCD9tYQ3kP6t VkPgRpL6OWquV980FiHo vYVgEatcO94gV5LepUJ+ LRFdDqz0LSSkrWnqBN0x V5TzQGWyvccnkGEv rShdCV7hWCIjtavtRYQe oA3vRGHoA8q2AjEsDrS8 ODpqD5PsNKHsiwbwSt12 sW7pUiWtHaJ0WCxe M3SdwxZ6GTLpcVMgJJue DRP6J28wq0N1CVXzNLVy IHU3gZM5aZ7qtMttndos bGVmdDsgdmVydGlj ABhrNOpuB585NUJlcIlw PkNvZGluZyBEYXRlOiAg MDQvMTEvMjAyNDwvdGQ+ SDIgDIS4bYdkKCSb vAFwLBwkQm0ksQhmvAyk PU5jJQJdhdenEOAtqN1w WAWuiFDnmVzeIR8iOWLo iwidi698ItEsKTJ5 KPUigQXuC5WhxQ3fQnFv INFpILIqL1LajTOmMLhj R704JMpdJuJ0ZSDlhzAd A5BsVYYiqWgaHpS4 m0O4Jm3Fh4TdrjtlY0Oq oKLpMxZwRnsfUBj3V7Wv PjwvdHI+TL01HAYvQJ42 YTz7QEI8ySccCWks CLNwW6WmqW8nWxBaXVBw ZGRkOyc+PHRhYmxlIHdp ZHRoPScxMDAlJyBzdHls NE6eBd1iPBZuTMGm cEuomWKmXpAve6nhHEYt IBbaXB6mqLufK5CgxAN5 OJFcu1g1Xr22D35xL1On dXA+WMFguEY4pVV0 xF2gUyCdKtT6FDckZ582 EgZilMNpOwbqp1swg1cs tIp8UuX7TBRhxgLaiDyp DOG4b6PxMs47T84r IHdpZHRoPSIxNSUiIHZh aNuzmp2miV2iEz1+PGNv pQS7oHA1kB2jAdTqPwT6 XXuhQ797OeQufCHj Uxkec2dlc8qjpRx2ZqBa TCTbooUdfDciILQ2z5Ie Co71Q2HpjDsoe1FmJsc7 vs38xAYwj5L3pMM5 T9SkELRdusmkfFUwlYve JR2sRQQnyvepSYCejX3l TWRdT3v6LjFiPyB5WRng A4SdowD9IMFoaLXf NVQcwWLIiA1uvoxrt3kn hfpiIfLdBAUcDEr7HGo1 TZOpeZwzMxGcMTR9JfY3 KHT0rOGpgT5fbAop rrgjlN0tEjz+NUV3pFJd lGIQJM1vXsvqjDU+PHRk BPN4oZawDZwcYCOcaL2x RICpH8j6QaBvMaB4 XLobN8UqphA3IDGdhCJw IFOnvFWXoY3uwkifo1jm zgseHeNvVTJkEZk4FBb7 LWFsaWduOiBsZWZ0 GpM9FNW7xZTenE1bmAdp bagzfT0vLcw+QmlydGgg DJL0FAr4W8WwHmr0IHLp bXaoVN7psZMmWCum Fe2bfQivvNjeEC8iJOSa mxpxv098LrZaq1hrYEXx fBObKJsoEXS0M54ha4J6 QNDrGOHhCQT8aAC1 bY1bkIltwtdazMFhgFkk snSqzMapZYouZMkwP156 WDEpkJupYcUzZPu5H0Mk Wig0IQFcbKeeEG7g vZCkWOxcBd0hhUzvvYla HZ8wCANyailzl389NjXu d9qfEBLylAVoSIoeBKM1 J67ho8S5EBRnKRLk VPG0cGT3xE3vmOjpmygo bGVmdDsgdmVydGljYWwt KOffB442ABTuhRgaRoEb aGg1H5UcMdx0AKXw rBqmSP5zrRVoQFkbCs1y rUwqkSryWC9uKWVkjfsd o700KdXyo3saSRRwaMOs JZdjVHA3Q71pa0O2 HKBjENCuAJY4zJE0bO9l bGlnbjogbGVmdDsgdmVy sQzuOUosBSlhW874BEBv cDsnPlBhdGllbnQg ZMfaHEv8E8OkZvxllMW+ MY93VGDuIC31qOQkrHNj x4xhiSo3EtSjDAFpKWP3 hIuqDZrwt9BnQECd A52gfEFbj0Q2AOWavCnf tBOhSpThgUU7iW5jHMro wmwon2hmchfeVrxzn8jk lw29mJ90E57lNXdw ZHRoPSIzMCUiIHZhbGln nn3riS9nBr9+PGNvbCB3 jAT3hG3zBTQcLgA1DHys V263SnWzvRJxMunl m7ahi1fejYu5ShH2LUVr vcGdeToyFHU1n7PlVv72 T64xGOgqQVVkWBIdVADw KWVavQrbha6hiI4t Ii8+QFZerCA5yQN8hW5q OpNwOeF8BQqmR525FxVx uNRaYrguC60qY2FzhTW+ HTIgRty8MYSelXrl OG0omPCqFCgjYn2yQPH8 EfFiJqUjIVgdB4FdZPHg zbpeidximNT3IWXuHVKu oT23Sq8rfVusNDOc mPUSzF7mjlfwk6rtzoil ZxRpJAJfMEf9TYm2SQQe pFgkHgFySDI3RoJ1JPC9 xLJwtC8keMjtrgcy wU9kL8NmLRIzayvjEs09 zH0kElAzCfT6YZolIxx+ J9JQFrpyQW4TL2tDEWfn SzwvdGQ+PHRkIHN0 lYqcPOkhOFUjvF0uPDBn B4n2YwGsFqQ0WMbhN8Ns CIOyntjiBn53rH9gUnLp NpB9GMrlF3MzbfO4 IAMibSVjNHlnXFF6P89d q2B5WTBxJLXpTKA7kHU3 oV7xtQovjndrsTCtjXxv dmVydGljYWwtYWxp Z018EPWyyRyxDjDrExA1 BxY9BhP2B0SvQuu1IGCp uZvoKY9vgCGiACtjSd6y qAcjaKbrGA3lYGGv gfjxWEPmeT0eWLGarOLz fKubPE5aAHOlulauk156 XhNqXIL5WMBkwYZjP9Zg lJ2dWxQoAXGsQMTk U6RnpXYkYXmdC340LFyt KaT3OQPdseZzG8KlSDPi gFckOpI6v6L4Px27DSNW ZWFyczwvdGQ+PHRk YHX5sLorEOprDFXyzK9d QBLyS0y2EgKmPpX6UXph K4VyTWZqgghaXv38oF9b FdWtTtS6HUgvQ2Tg jnF9MILnjNDfEFkwHBH4 B20sv2H8DZWfWYFuFOA3 lXS6rB0roUypidaxyGRz dDsgdmVydGljYWwt QTkkU664DWWioNisRi4A SSB5I1LiGpf4PDMucUgc VW1weNVmTSmnIz1mnSfa nFlfVC8vPNNcjbxk MURphI4fRTIljSKpzDzb OW1eECGdsfpyj562AkMz ONM1UXKqxMNrX1ZicV8o DjDwHZMqECRaU4Eb dWRkHFtzI182GJuaRqA5 RLIfpxEcN0EuBVCroUjr EuT8u3Y8Kc5KNQtvoSO+ PV63ap79S6UsIqps Rmr4FCAaXFF8vUY7bO9x HLGhWHhps6F4tWV0P4Hv suYqik7mv4okWNZnRSll V98pfYBhx3S6VHRd lPK8CBPohIceYrWgnM86 Oyc+QLZkoMpdd5OhWink b5juc5jadFd9JyVkHGVc dfTeiJzmTXS6i0Is Ql86O14jXWxgVDLnEGXb TPWaDIGhtRaprk1xaU4d Ii8+OZXiuFS6kAZ7xZ8u IsLcXhU7ATaxZ184 EuAgiNVgWwosc6zht6ja lVh6AgWqVRMbozInnLln TAU9j7UbEj12C0VvqLxg f9PgPik7sb32vVYo m2V2wQL5S7ByGSBjjirv wKYotGerHV8qKQMicayp JAPwgJ9bETBoJ7i0OiPn ZwS8RPrjG5MtdrQ3 DDRfiCXoGZJtrIYFrO8f jxpky5zyhsyzMlWyXSLh GOg4LOx0JMKeuPhpSuIc OIJ3RaU0MQK9eMAs yD8trGjkqesisT2hOre+ XQd4i3kfgQPpAP4vqXW8 JD38JY04cCTei8E4tPW5 F8HxBPXlpplbrcnq vNO8HZZpEITfhS55Fs9m kKhqIp8xGGWjOJR8XNWg zNBlX5YqjX6iOySdAMUk YKDwB2EbnQMzSHtd D547SJmoMmT7XTXmsjYv E9CjINLmsOwzDqG8l2D3 Fs6ZUA56KD64RU05gBVl p5A1nVC5Z1ZpWJFs pxsisjbynZV4UBZcMEMf qR27Mk2pbEjsLd2zMVYl FQA9PGYzuFYnY3QhdK2b FjYeZVZwKQUoK9Tb zTPcVNbxN486FPhqKsR0 GJIsyiDoO1MhHNYdlTph ZsT3j0P0Ml3DAw03UY37 ZY25iICaz7M3jZZ8 G0UaJNOqsxmsxrdkgRH3 QTStZJBbfR71Md2piLwx Vc2mOSJrKPI2EQFbkQIn R0WdmC6zHtPpMUFl FHIrL0MnqFIhAAbnD030 ZLocNyU1OZNyzkStZ5Xo SXAsyHvaRmO9r5C7Qv0M QOsrejb1D5GlEzli dHI+OI92ZIJzAO56zSPb sBQic8xqtUi5EeHxRFIv NCF6oIbyIFkki3SmKPEl I23szCDzt3W4LZHz bGx (more content not included)... [facility] Coding Summary HTMLBase 64 CujyagipASx6eHz+PGhl YWQ+SS3PAXUjV57zrCBx aC2sW4MNSVvTDetpKZCB RYpUImYqkjQdAH3exNQk ZXJu IC8+OM7dEGZgExfkuHNm e0S1vFC0B04nrp7iKWqi oLV0ATWvNfKaqwzgv2un qFh6QAcrXmwjIhCq MBBkjY16CKJ2eV28Uj84 qRLbyTXva7hunNy5IfBu JEIoAIL7aXqsXRihz7Fx WWGkC08moMTza5S2 IGNvbGxhcHNlOyBlbXB0 hT9rRKebulebg5aaxorz Sia1nh88fNDja9V9sWC7 Q6VosyM8ZCYahCLg XdijjDCXzZ9khqekx2kh rtfpIzCjHVSvAIo3ZYg2 KZFitKxcWnNlAT52HQJ8 BHRjbrLtO5QqEJYn vVggBuZ5h2Z3Qi2JR2UV GyeeK4FSOETGRLeidKB+ FP42jo09B6IeJcurZrm9 JHHnATW2wEQ3yW0w VVZdKMkqo9R4jBM8T5Ce uyPvoc1mb7sxLLDvMKej B86juIKsg5A2CNSqcBH7 IQBwhXtfGqEzbN50 Oyc+WQNbiIcnt8NvCiqq t8bim1etgHs2UtnwEIBn sxCqiIigOUQ9a8MeKy4p ZGEkmMZ2kVH0mL5m YvUtMhW9MZitR920LdTo gEEqVhgqD86fG5ZgjME+ ALOgOdb2PVMyvTilEG7q Q2LvGKAegutopOOf qTnkZI0lQKHarjprMLSq eC2kEUHlZ0c3NvPvDsM6 CVkqW0FbXNQkesvcGh06 pN4kXwYgHkU9IFet B7MczkY0EOHubGTjDLnl MVE3C25gm3Z6DTSyRVIr HLP0tNG1cP1joVlgogew bGVmdDsgdmVydGlj KDxqOLyuF413TVMysSel PkNvZGluZyBEYXRlOiAg MDQvMTEvMjAyNDwvdGQ+ ZTYwRSQ1dYdaBKUa dHVwQNziSo0ecIrrtHwy WP3lPPIzaqwxMBAycV5r VDTdgFHwpDjfWF3uKSFh tbauz997FhIwILY7 PMNbrWXmU5LlnH0fWpMa IBImQASwT9AlnBZzGLtd G875OIgxQtA4FSKeryEy P2DcCQGzqTeoMsR8 l9I2Ew5Qe5XzolqpP3Ku rFWcUjMmBlglAJa2Z1Rb PjwvdHI+MY10XOJxJX28 TUn5JJB6oYihVKbj ESHtG5AwbK9rPzZoQATo ZGRkOyc+PHRhYmxlIHdp ZHRoPScxMDAlJyBzdHls RN7nUv9aLWYmXTCb iFfdaGLdYdOfp0siDPHo BOakWR8stFvpW9EsmFJ8 GRLpe1h0Cl90P53gR6Cr dXA+IEFwoGX0nOK0 zB2mTwJcInB6LSrxR238 BtXiuTWnZarte0fnx5di uPz5VuZ7UCEwndCwuNim PYZ4f9PnRg04G13x IHdpZHRoPSIxNSUiIHZh wMmklf8oiV2yZn8+PGNv kOS2rZR6xJ5lLsOuZvN6 TBngX200EjHlaQFj Kipnu3fxr1gfzRp5QnJz WIWtvtRyiYexGJA1g7Uh Ek79K2MfhQfvu6EmAeq0 dr53pGOel7E4oOK1 Y4HaKQJzvtniwZKzsGsu KZ9sLYNsqvrgOJZllE3m QQPsI7h4GySpMnA7XKzi Q9AeogA9HLDelHZb VNWmkPTBkR8oiraip3um utssZmMyTMBzFRu3ELh5 BCNsgBmmTnCvPUF8JkR1 CGO4gVCjsE3ieBgc kkoivU0dBqu+OVS8rEIh dIAOQF8hGkujvSN+PHRk PJK3jXbxLEovVXSoaL9u SAAaB9y7EkRpLsU8 BKklL8TwsdI1NFHczAYk BULeiSGEnZ4fafhov7mw shrfLqRbDMFkXBj2ITa6 LWFsaWduOiBsZWZ0 JuU6QUI4gWOakX8qiZlt lohlfO1qWwe+QmlydGgg XUI6LVu7M8RjXxt0KFIj tRmjKT3glYYhJBxn Hw8bbMgmpKpoNP3nLZHt uwyjn927CmEnz2ytZUXx iMKmCExzTYP3R09lg3O5 TPWiVZXeQFQ6vUD7 bB7ldOyrlwtpqKMekZrm aaMvqXodUQtfGDwtO385 RLCmiBllKeDpBMp5H4Hq Zyh1CRLsoBjoRR3u iIAlACavOi6riWqbbPfs UG2oOWNcbpmpw660HsAn r5dsECCzaFZtJJzoOVY2 R93je7I9OQVsQZKd DUN5dVD7rC4cnOdwkgro bGVmdDsgdmVydGljYWwt WFkhA007LJBwdWrgFxTo vOh7L8EiQzg6SYUr cMutQT1cnCMrFXgxTh4a vUqsiUvpPJ9fXBQptxav b040WnKft2bpADAihAFm CNgzAYM4Y06vl0T9 IBPfIWHzKTT6vAN7nZ0j bGlnbjogbGVmdDsgdmVy iWhnMEpyVQqwJ857MJWa cDsnPlBhdGllbnQg TCerDMc5M9FqUqodkXE+ CQ54FEAbXW80xMWidXBz j1aptMc7WdPtURHvJWQ2 ySpcFXeuf1ZwBHHv C53erGNao3B6RFCdeRik iAVsSqRoyON3aC5pGJds mrgot6kedxnoXpldm1gf il95mA12C40cWVwb ZHRoPSIzMCUiIHZhbGln gr6lrI9jBj2+PGNvbCB3 hQT5oB2iNDLpItU8SOla U336GsSvgRDmNgvs z3zpw0itnTz5AwS6BBUi cwZlgFcmOSL8l6EqSg53 R18bKSciLXMcGJMfDVIq WCUfyQwxlx6prL4m Ii8+XCMfmQH0cUD7mF5q AgMfHhM6ALisB865OnRu aQCeUqlmS45oV3RtdJX+ DAHpKtj7CRUlgDpo QD0mqFPrUUxsBu0yJJL4 YdUeFbCmNZahN6VePFKt dlztdivysLV9DAIxZDXd xH99Nl4nyTpbMOYx bYAZuX3qutrcf0shgxoy OnRzJPBcQKs0MAw8IRNh bZgcWjHjCJF2WeM1CTH9 uPKvoZ3qkBdliatb bK0uI0HsTMXkhhqnXr34 mG9cAyGhOhE0ULxrDmo+ Y8LEMnabZK0LG6uPXXfq SzwvdGQ+PHRkIHN0 dXysEXkdJHNjnP1zRPTn D5m7XqJfPfC1IOesK6Vl CLKfnvgmIb48fW0qPsYa TcF6BWxaK4GbgoW9 ILDlmWOdHRnkYUJ2L78m z3Y5QUWpLXWqMOI9oYK3 gA5elHzatxxshFPksBnm dmVydGljYWwtYWxp I967KDOagZxrDcYdIaV0 NgK8OsQ4W1KdJrt4SUFm xEciUJ8huONmNBxiSv0x bYmhgDfjUF6hMVGr zsrlKZBneF2gXRDcdPXt uHswUZ4iPFYwpmpxe203 BvVrKKS7CPXxrSWyX0Pz eW1jKkKjCCWtLBHf M0GtiBQcREoiY553RBws YvG0SGKmqtAqJ8PrVTTr sBflSdH5f3T1Uo02EBGO ZWFyczwvdGQ+PHRk KON8jJdoZOofRTStqJ0b RKJvO0c6EwCrJdP3BBpj N1IxLRWriqdoUq84lA8d WcKaVwD4AOjsM1Sd nkO5FVBwkRIbQXxxUPN6 K31wu1S6ILWrPJBkIXI1 xGD3nP0fzCaaezfbyLKn dDsgdmVydGljYWwt ZFngS521ACNwjWucVm2H AZX1C4ElHjm8VUTpwDnj YX5exIGyZMexZt4ozVtb qLqfPO4wFESiufkl WAXhrP1aBNAmsSFluGmd LB8gJLKhphkor522PjGq NCL9HMRrmBWqF0YjjP5v OvKhBYNtQKXyI7Gu aDWcTYdeL541EQefDdW5 ERLvqdLcT6OfFKWaeUau DmH4f8A7Cu8OVUppdIT+ KF51pe78W1HjUpbc Ulg2LZZtODL5rNO3hJ8v PIBkQGbje7J0bWO7U3Eo ycBsyc6hn7raMSErNTaw G70ffHAui6V6DISu iSZ1AMWjxKodMoRyqK73 Oyc+MMMihZjcd4DzJdsu g5pkr5hzfSv2ZbDiFYJp ikTgrPxcOCM7o9Rj Ix94W31wZPepFUMnDRBo ZUDsFVXxqKeptq3rgI3k Ii8+XYLhjGI0dAI5qH3u BtHuReG9SAhlF024 CjRgsZVlCnpiv6wym0or zZl2GwLmWORrpaLyzMhd QFC1b6GiJn02D6UoiPdl n9CcSjb6gs85aFCa u0J6eGC5Y5LkRVIkbgek mEOmfDfgVA3oCVItnapv UBGcfI0wOVWnA9s5JxVp MwD0SUugK6NorpY8 NPBatBBzISVryFFBuD7r vjrrk6tafnkyRaHvKIHi XDy2OLm4YXFjkXvwZjAq YEF4MgK0CYL5dPFj kL8thIzjtigudL8sHrb+ FYg3q7gndMRzQP1qcSG2 EH20JX35zNVjf0B7cRY9 C2DnHKNbdbbigmlg hAT7WCKdLNRsyH78Zr3n eVoyZl0mWLIrRDR4HLKd lEBsC3RtpF5iGrXbEJXl JYLiI8NmvWAsZGhx L670GTmcHlK1FLQhecGd K1WwFWCwjAtbDiZ8x6O9 Rr7POM40IC06VX19cJTc y8V7kGP3C4FrVTWe ntgxulwxwIB9JZMbZBKo pU83Oe4pjInoZj5lEKOd EVW4ICTgoNAxL4LkmY4b DgSlAUYyJMYcZ0Xs rADmEDyxC443TQxsFcM8 NPXifzWbO6DlJLMeuDsn JyA8l2V8Ed8CPt76NZ52 GK55kQOcf8A2nXS5 X8DbONNsqdszifwcfIK8 FJCeTBHmrO54Sg2mvZix Oq4mRQOlAAB7UNBlwPYe B5WzdJ4pHgRmTMWb GQCtA0WubTYiEIegR514 PMaoRzG2DGMubuPpA0Yy PHLjcUxqRkW4q6E6Sb5F YZciwdb0Y2MvHhhj dHI+BH38PDFyMC08wEDq wFLei0atnYa4VyOjFZFd MUQ8iXepUEfhj4OhHJMj H44leRMrt7T2SZVo bGx (more content not included)... [facility] Wound Care Noteon 08-12-2023 Wound Care Note [id number]# [email or web address] [facility] Wound Care Noteon 08-05-2023 Wound Care Note [id number]#1. 00OTGTIFF [facility] Coding Summaryon 07-30-2023 Coding Summary HTMLBase 64 YgxkzcotITy2kIc+PGhl YWQ+SC2JNGXbB12sgYNl nC4hL6VEHMiJTroqZHID OSeHToSverLkXV3umJMs ZXJu IC8+PT6jZVIfEdkdkHNp e8U3nPM6H57mqb6cISdd jEO5BPSbJmOmxzsit2ht yIb4GWidEhqaMtXg XSIzpR55EJD0sE98Fq43 yJFqlANlm7bbeYf0JeMd ULDeONA4hFmyTZoxo7Xs ZQHbN43kqWNjp8Q4 IGNvbGxhcHNlOyBlbXB0 mH5hLDrmofloc8gytunh Mnj0hb80iWRnl0M4kGF6 R9KjczG3KIGpyIXy WxdbhRNIeY2toqons5li mzxfOtWmKXKmWJn2MFi1 JXNxkEnkMlCsOR18WFO1 KUCxdgKbG4FkRWQn wEcmAxW3o6W0Zv1EJ1NV GuypO0WRMAMXYZntgIO+ NL27tj26B6PtPwpaUpu3 GCShCLZ7gOL2kO8v PMZbHZvni1V1kDJ2A3Wk klUuum8yl4orTLAfHAno Y94igQFqd5Z3HPDtoLD2 NYKftGlmTrOvfM53 Oyc+MDYsxDkgi7WyQskf j3gcr6pzwCx6MpdyCEUu cxUvuMbeXXF5d1KxOj5e JWIwkEW7hYH3eB4z EnBgLlF6JKmfZ697VmAd zZJmNgocW46cC4DhqAI+ GAZrXtw6YYXynKqeZW2n R4QjITFeetnfdQQa sLtkHC0yDMAehljwDORu nQ4mJVLkU4f8RaCfKgY8 EEjpP0NqPMLgaeuoNb95 hU7cQzMyKhR9RSwc Z8ZkatR4GQSplYWsXQbg IKW8N27cw5I5VKOeXVPa UZQ5bKG5jQ4egDmpqelh bGVmdDsgdmVydGlj FKhzQXkaM904FTLwvSwr PkNvZGluZyBEYXRlOiAg MDMvMjYvMjAyNDwvdGQ+ HDJiUHK8hLzoMYEe aZHmJVqvFx9quHncqHxi CJ9gEMPndypwOYXmbU9x GEKdvGAnzIwdQN0lDJPm dpazd200IsXiWQM4 DMTmwPYfL9MyjY1sTdKo MZBwNYYtI7XfuXHrNUpp E114CJrwIhP0LMCyeoXd X6GqHRZpbMhoHqF5 s7Z6Os8Zy6SzolvcD5Bj lVUeQpUxOroyIFu4B6Tb PjwvdHI+HD72UHCnGG37 QOn0BIG6oZwgZWix HBKvV6GamB2cYiBlZQFh ZGRkOyc+PHRhYmxlIHdp ZHRoPScxMDAlJyBzdHls FQ0rYx6wEXIdPOIj fHkqmDMwMhUrt4tbCAPi LUerWK1jvDpwZ9BurJC7 HPPoi8j6Qr09T88gQ5Im dXA+JVDjvHX0yFU6 uZ7mRiYfPfJ2TPwgY818 OgCvjSGoDimut8oor9py dUn4DuP3MPJveeFoxCol BVU9k1FxHj79H61w IHdpZHRoPSIxNSUiIHZh fKffjc7jmK7mCt4+PGNv dMO1nCR2vN2hOgGaDaZ6 YGtmK937IfFrjPNl Gxpfc2qwh0udcEv2SpHj TYEemjCucUabIFL8d5Dm Ag38V2HafJxol4WzUlp9 ly69eHFtu5V2hNZ3 B9YvDTJdkbpacTZqbNzo BC8dXIKwatvpCGLpwS6r HPFgJ3c5QoJrNbK4JPtv Q2MmmeX7QDCuxKLd CNFehWGJvF2cafolc4qr dlwmRwOyIWFbLBm5FWx7 HFLosIrkRePjUYC8IcQ4 VPV8kQWbuQ0tsYha drjxoQ8sBrp+OCE1wQHc qVXQRM2aYwkemRX+PHRk HFL2nEmtJQyeJCDldT8c PPPrP8o3KhWqAqP8 WPmxP6JxxfU8DKPckXSp YKFnvLLPnC6touztm8cb qwauYlVrCUDaOUd6SAw1 LWFsaWduOiBsZWZ0 PjL2ZYB8dNVdrN3ylBtp kzydzN2pIun+QmlydGgg RAL8LVg3I3CzPxn8KAHx zLvbGZ7aoGXiZGoz Xg9rrGzuxDpsKL1mMKKl dihwi028OjXlh8fgQAZy bWUqNCxxITN4D15vp9S6 QCMdLWKbRPY1bYZ8 sB9ihVrwcowvpMIyjZnm xuOjgYjhMQmrDOhgR775 QASvhYofMaHsAEj4V8Jz Hmd5WIMdeGjwNO3s eFKuDUolXm4tsEhrdTrx FR0zMJQwasftg402KwRz p4ixZODdjBSgIYvkQFQ0 V44vi4J4DDIdIYEb FHF3dYU9vA5ztUaggtbx bGVmdDsgdmVydGljYWwt OUpgW105DNUmtNhnTuHm tCv2V8WvEfs4TICx yXitAT2ppUEuICkeMb8g kBdkfUpjZF3aHZJkkith w663QnJuk5djTNUjxHNu LJkqXLL4G44ym7I1 RNOtGPAcGTT6rQQ9wF3q bGlnbjogbGVmdDsgdmVy eZyxGSwoLWwiP698EQEu cDsnPlBhdGllbnQg QTbzZBa2J1IiSxcraLO+ TJ88LAFjEH57qYSnnTHu f2icnBm8UgQdXSEqAWO5 kCvdSSjlh7WiEAEr B59kmGQsu0Q7SNYkgFnw xVPsBcFhvNQ5tN0hCMkm djcrc8zrszauFkwxk4il ov73fP82H13nNSzb ZHRoPSIzMCUiIHZhbGln xd3dwG3qJu6+PGNvbCB3 pUT3mB9pDLVrYjA2GZoq M399DyIioLQdKudv z3vwa4dwbZu3BwA2OAGo tuWfpFkzFUF4k3PkSo10 Q55wEGxsVLJuDOQfGVXl DUGohFsmmh4qtD7j Ii8+VZQhnEA1eRT8iY3m SvKpSdQ9QMduU714JoLm jKRnVlheI58oX5JmcAH+ XULsIha5YVMshQlb KO5juKQoBQonSz8jVJD9 NuLjZgVaHIkcC7RxUMJt rphiiyihhWV3TBLeDWOr gR64Kd5uzLttMROh mNMCtZ4hgzgph5vzlaux UuQrEYVkGEq7CXg4GHAd cQjkYyXbRZI7XaP1VQB2 tODvnX2roZqsgetn nL8iT7KqBGCvobehTy21 hL6nLwXaAaM6VGdfIft+ N4FKZwgzMK2PY2bYSTfs SzwvdGQ+PHRkIHN0 qAaxUWvtHECqnI2rYPJn J0k5ZkOsFfM6IOviA1Ir BKTbjtrgHo37iF3hDrDg NjD9ARqkI7EqmwW1 AHFziTDrHBmcBCK6Z41v e2U3KYSdXHUlOVQ8nNQ1 gR8bjTvceekjeMEhdItp dmVydGljYWwtYWxp G358ZOHyvQqsCeJkQhT4 DsW5KkP9U6SiJfw1ADQr eRtkWM8kxOTmALoiCf7n bPijcGmdLD1dCEBn mmysCHDfgU2nLZVsfEQx gPcpKW1hDCUjeozib926 BaStKMI6XWWfkMFmL0Xa cN9tQaRpQWIrUDSn Y5GkxXHcWScdB188WWqk ZaH2YLNxwnTuF7JnCGXh mHhtQaL6f1Q5Ee80VIHB ZWFyczwvdGQ+PHRk KBN0mSuaRRzzVYLhiL1g FPRrK5u6WjLsPpR7QYpr N2QuHPSwrepfGl11eE6h ZoYdUrB7BOhmY0Xh rhN8CZIzbYElUEqpJBE3 D61br2L9DYStHDLaSHZ7 iMG5wD0wmFuditifdUWl dDsgdmVydGljYWwt OWmaG879CCHnaRxqFz7O UFQ4Y0XdMmw0BXEmsMva TB4sqLAhYNqiJk9wtNxw tUflSS9vPMNtmvpy XGUfgO8qDWXjqRIpyMlx MV8aBVCvspwcy786BuBu UVG4KXCuhMFeL5UhrV3x AgUyPTTiVMKcV0Ao nAQpKJvrW668QHttAvW4 HTJqgjShS3SpPQRniZyj WpK7v0V6Ty1LSOvdbLU+ RR61op55O2CnStpc Fgz9OGEfTIG9sAC7dN6v FJZgMAkdv3E6kRX8K2Bd wjUjkr0kf9wsDKLuJOfu R15asKTgc9M8JCIj nUN7GUVamBkhBvWojW89 Oyc+YWCdsHcws9JrRlpx m1myp0szyXp0QiUyLKHy koClyKklJLT0r9Tp Ee46X56mTRneQERzELJe REOwCOOtbDqdwb7mpS5a Ii8+VQVxqUX7bPE3cK2m GqJgOwQ6TVqtN824 YwLhiZGkCajty1dtu8jy xCx6WmDwAUXjijIhmBmj QRW2p7IyNe34I0YmtUlc o9CpWck4ne96qTId m3U4nBB4J1FrJFZrpoes aSSzrDcnGB1iEFGbgqgw TQBspZ7hOERcV4w0SuRa EvN7MLduG1RbhbZ5 ULRzePZhUSLoiBKNyN0h xnisn3jjgkdeCiDeLFFz PGp6RPt3UVRoxEmaLmDd SJZ4UfE3XOM0oQRk xA8kyZqymmelkD5tJxy+ AEi0w0ppoWLaKY6lgPP3 OC04WI66rKVsa3T4cMI6 U1XmPFRbadyppqsu fYZ7RZZlYCLuuB43Zc0o yDioCl7dBDSdBDV0BNQo pFWbI3NzrN7nBePgGKVd UERfD8DfdJGwLTun H428EIchOcH1LCEitrTu D9RoTUEenSbbCeT1p3J5 Ey5LUJ92IV84LA24kJGv q5F8fZC4F1PwZDJj itqlutscqDY7NZZaYHPm cC56Yg0raNbrXo1uLTTj BGM8SJMgvZDwK6SxtI5d VyHlRIXgNTDjN2Fl sFMtLZtgF321LDljHfO0 WHQfgqGsW0PwEEVqjQqk GqH6t4T9Tf4JIc47RN71 RO25cREpo7I5rUN4 I5ViDTCcvebtolvgiCU7 CMDjWDJmhE49Xk8zdFmv Mj3xIAPxTZR2NIWttMGk F2MvbB9lNoZtAKGa HNHvA7GzfBWtHCfgV458 KQipFvQ1HMInioGcE1Gd OHVylHbmZzC5r8H2Eh5T KZxyqau8W5KwOvgk dHI+RG79UGDtYS70hNXf qSOzx6hwdZr2XqLkYNCa NXH8fSvvBJnuy0JnRKVr N90xrDIku7R9BPWn bGx (more content not included)... [facility] Coding Summary HTMLBase 64 SeafpxbdHZg4fSc+PGhl YWQ+OJ1LQBUcN56yhNYr zC7uK0FZZLtMQbkqMOYX RLvGJpYtihKhWY7avYAd ZXJu IC8+JD0vMHWbCoymuOAq r2B3nQZ1O94qul5cJCbz dBR5ADWuMuIxbhtci6ii qGt9DHlgVgsoRxDh LBCgtJ25HUA3gJ44Ll66 iGTlhHZbb9iocAf9TdUn GDLkHWA5yAifWHvmj7Vb TIUsN26tbEPmo5Z2 IGNvbGxhcHNlOyBlbXB0 sJ7cFLxmxvzvx9ygkspd Jqn7wj86hQMju5S8aSU8 J7OzehY4JIAuiPYz DjlvgJYQyO2dqmomg2py aiohRxUgSPSoZBt4GLo7 EZGksRdpApGvOR71ZWX1 MFSntuPzL3MfEUGn aHuoFjB0j0I6Dh9RA7VF XugpF1IVLVIRDMunwIB+ UA73bu00N3ToZdmuLpb9 HGAwFWT6yZZ1lV8z AJIrFJwqw1G5pUE0C7Iw jtQedt4fk0suTSLbRYfu L44fqDJmi0E7KWTupLF9 AHFdwKsvTjKnfH89 Oyc+LCHezMqep6TwQnua c5ype7fdsJa3WkzqJJVx qbRtrKssPDA4n9CzMv4k IDNwdWV3hIP3nA1m NyBkZaE4FFvdH233WtJd wUArZhqtY66vH5GboIY+ OXTtAjo4JEUmbPpkVE7x G0DoSIQcdgfajODz oJvqZN7yVYMrlkynBYKc oI7nZMEkO3n0OeOeQkA4 WYxmU5QcUKXexjwqUu18 iP7mTcCpHqU5LUph O4IoeyB4QPGynMJyJYxq DDJ7J66sn6M1HNNuNXQs FOA6yBN6iH2hjNmhaley bGVmdDsgdmVydGlj VLntQGoxP178UFVqkUud PkNvZGluZyBEYXRlOiAg MDMvMjYvMjAyNDwvdGQ+ GQPxAWG1yQdvHULe yLKwXGeoIi7coJinsSbc VM3oPEGsizrkLDGwxG4h LYDznRIqrFdlRZ3sFNAa kqkkb720PwHfSKC0 GVXkxGScT2JpdU3cDaSs DFIvOXNpA1SdtLMfRAyw Z554EBazSfK7CKWxqwEc N4IcBBUruTwlRkJ2 o6A5Df9Vp4JvjfimV7Mj wTVwLdQbLdbiHVc0U1Qq PjwvdHI+FM39BSHaSZ64 KKg8QQL4fKvxHVro ULUhU1GtsF5tCvQbNPGq ZGRkOyc+PHRhYmxlIHdp ZHRoPScxMDAlJyBzdHls FR5rDl2fYFLqARMr yOqaoWKlEbIbq2nhWEUe EDafWE4xsAxxX0ZcqFE7 DDBxp4v9Sm92W38yV5Nb dXA+VBFfgRP3fCW7 gS3sRjQqCbI1FDlaN792 PtMynZLjHprlb9vbe7us iZt4EgK3HBDrjzCmyZsy XGR9j7CeAa89H31j IHdpZHRoPSIxNSUiIHZh oXeivd3csJ2rDb7+PGNv eXI7xHY8lX9yKlYmGvO8 DSxtC891MuJblJYw Wtlfh2nwm1fbkKk4FzZn XVIvsfJnpUtxMFF9d0Oj Ef43E0SweSxjv4TcMur0 wb49nZRzn3P7xRN0 M8OzUSRbszqodREddMiz UA6gVXDeznytUPPbeP3f ATFuV1w0VxLkXmT9ZOkp J1IrhcD1MPFogSJo KIJlsXZJbH3iohuzf7hv qaiiOiXuSJAiVZb4REn3 XVPfiPgzGlOzPPV5YwW4 TYF4lBGkgC4bkDzk lohgaO0wEhg+JOQ7hBXg bZYWRF2lNjdalDA+PHRk NXJ5kXupVWsfTCUlrR2c TXIyX7f2IiCyAsV6 VVybF8FyilJ8SQBgwZJa VUVcnBKBoH3zugivv8uv ujjdWlNgIZUoKBt4XZp4 LWFsaWduOiBsZWZ0 SyX9CJJ4xBDapJ5ohGpp giupjG1iUgg+QmlydGgg LFN9LYv3G2JvJxh3GPPt rFibEG7bnOToYNtd Xf9wbEefxGzqGM6bRKDy lwjqo547DcXqp8enRSOe dFIdWWhoGTG1U30ua0R5 UCOnVDTwFJJ2gCA1 oI9upZitykapwOUpeVvw jrFuiTizQPmlSXlvC954 DSZwhFcgClPhGCk9V4Aw Dgb6SZBzsZjsFL0y oSBpOIcfWv8hgLwuzZva LL7hOEQnivmgo529WlUu d8nySMQwbFAiADevQXG8 I87ow6C9DPJlFBRi FMJ7iPU9kX6knRqqhkpk bGVmdDsgdmVydGljYWwt TNerZ008JWYakRtvXrAm sPc4T5AlBes5JFLw yPofUT4saVKcUBtxOt4j zKsqkWcaLE8mVTAkegtb c917XnQim0syZUXtlVLr EDasZHE5E98az4V9 NBMfGRNuZIV5vYN6aD8q bGlnbjogbGVmdDsgdmVy nOzuPBnwWXmaZ446RZHf cDsnPlBhdGllbnQg QGmfOAe5M6MkTvkczTO+ UK86YPOvOE56hPRwjQEm x8ajcQu5KnEcHMLsMHI3 qWawWLnuq5FxQHJi X50oeELqy9E7UUBfkZio iFOyDnYzuSS5bH1zRPbf qlkkf8iwsqmzSyznw5rp xc80vQ72V09sZUsf ZHRoPSIzMCUiIHZhbGln ew8pgF2hJz2+PGNvbCB3 nJM8kQ4yDERkVmD6EHrt S113ZbOydHKwNopb p7ghp4qyuFh4SeX1RBFu duXwfVoyBNM6d0BkEf33 I88vBUndJXGcKYCoLQOt ESObpZtelq1apI0u Ii8+KURvjCC0fTG0bU3w XdEzWiI5ROnlX076SyUp kKNxUlwbS19eM6CtsOB+ BYJkFtp0PXSsuKtr XP9atCMlUBplTs5mMLH7 NvVoGuVwUPdjF4GvPTGw sfktfcpulZJ6HLFpEMTz sJ15Bg0qvPxcTYYw vTLLbO9fpfyat7ctmnjo TiLhFSZqCLt0TZr3GJKm cLvmRdLsPDD0QpC8QJE8 uTAoaK1fwYjnhdbd gT6mZ2OxSBRdvsgtWs69 sC2dKxRkNhE4MXdwBeg+ L6TXImzyVL0PZ4hSJGqv SzwvdGQ+PHRkIHN0 tPwtERiwDEKwtP9gGHSt C6y4IsGzOsI8AParK4Lt XYSlcpbsQv26pM3mYaNn KeC2YZkaM6ZlztD9 EOSkmLIkCXcuSWA9U95c v1J9UXBtMEXnIEN8gSI2 dD8nqWsbtyasyRKojFbg dmVydGljYWwtYWxp L891USXgzAodPpFtDpO4 OvG9YqU9U1SmFlo3IWHl qHrfYF0ybRQzYNpdCx8x dJvaoXlnDH7gUOGn uftrQGOmfS4mAJSxgGEe mSvjSS9zOKWcozidw533 WqNgCCL8POPkeIKpQ6Pn sH2hKnKlTHDyHMMq E8CbsPEkMVigF354RJhx XlO9UBKqttBsC0LkULHu uDyoYbO3j4C0Od15SCZZ ZWFyczwvdGQ+PHRk PKD0uZbvEIrjKGUifD3f PEDqN8y8MlDlVtM1FUae E8BxGZLpdabvZt03gZ5d HcRoQfQ5NXphQ0Fe vxD5TVBjzNFgROzwNON3 D55cq2G2WFCuPCWkFXR7 aEP8rY3tmJxvkgurhNJe dDsgdmVydGljYWwt XCpqR652YMAagBceAv4U YKD7C6VaTkc9EGTpoBjh KJ9jsZNoIGhpCs6klBak gWdbVK5fCNSmkdba UKLvlL3uNLExnLTawCxl ZE4tJZGdldihs289VnTt YJZ8IKBjwJMpX4HjfY4w ZbTmHZFnYGMsF6Vm dZTmOJtgG701UPpiEkR1 UKYagrCaB3BaQBAjbVwh VuS4t9B1Cg5JRIqqhJF+ LJ32zr71R0BpXron Qsv1VFSbIEB0jFH1nR4w TIWbRRvys0T7nYD5W9Jf zuVpre4se5blZAUsHXpi A81vtNYlp5C7VWBt gIV5BPHpcYvyOgBcoM47 Oyc+AAJbsVbvs2DrEwbd i5kmq3mcbCx7EwZfWZNq vqOgdHhkRCR2f1Rq Rm28C46iCFaaEDSnIFRd AQCrVJGnrKirsr4nqB3r Ii8+OZMscDT4fOZ7qR4x ZhYoGuW1JYauA334 GzMuoWKkOjipl1iba0bk ySa8DaZgPALbanUzhZff REJ5y2LkHt02S0AztLen r1MjRvt9jh16wSMd c0D3hBY3P5TvFAZxkehg fTVtwUheZF4sLDSqacsr LKWisB8qLKGoN0e7UeUl RfT5VSvvA7LdisX5 CARvhQIyINEztNUAiP4h lfygg1qkqctiVjIfWCOr OFf9XTz9SCLcuOrzTlDr BMO6AmK4ABC4eGIk hR6kqXmxhimgrJ6dTnf+ JKs3d2yjsONzXS0pwSS0 JZ11PH07nAMab2Q3nXS9 X0KyYSNwjfbknplg hYA5NIPbLBYpyA53Gw2n sCqoJk2rSJOqKNE1QDSe kHMfO3FplU5bBnJlIJEd CDMaX9WwzDEhFJra U998FMlkGnF8XOGvkcYq Q2UsGVXewPlkUcQ4y9P5 Nw1KXV34JZ86GZ38bSKy h7T0rZU1Z6BuMPLg anopdbfebOW9BARsCJLr yJ74Uu5gyQemRn5tDLGf XSM1HIOssUIsH5FuvI8k AeInUWOyBJZwE8Fx pKEnRJmvY527SUroOqB1 NNGuljKgJ2NcCIBduIlh GoC4y2O6Ez3FJk54TD04 EV21xETav0W7sGX6 T5RaQQLqmxkfxlivyIC0 JENsTHYftL24Dl3nvOey Fp2jCZQxKHZ7WEAnbGRt U0CxlT2tYlVeHPPp WCCzK9GsjHMuQAbiX684 IEzqIlI7LLVsfpAiF8Xw PFIpdFxqNqH1m6D6Ys0L WJmhkln9D4ShLzev dHI+HH59FZQtHC36qCFa vCVtq3xsvMz5HlJpYRCq MLI0nTljHShbq3NcPBPx J58igZJvs7Y3OTXq bGx (more content not included)... [facility] Coding Summaryon 07-29-2023 Coding Summary HTMLBase 64 LjctfdqlKDj8vAs+PGhl YWQ+EE8IREZqR96qsNLo sA0yL2VYLEuVZrlfVSDA LAeYDtNrnmZoAZ9enVHy ZXJu IC8+NJ8uDNWuTzoqaPAx j9O0jBC5R44nxr7sVSvd bAG8CZHeTxQahopfz4bs vZw9LHtoHyfqFxIf NQYvnT10NQP1nP47Yv54 nJLsoJPpt2yrlIp3QaWl OQZwTTV9xXyePXuyc9Ze PYQtR99awQQho4Z5 IGNvbGxhcHNlOyBlbXB0 bC0zWVqppzttl9yzgdrk Zac6jg11lLGlv8C4aUQ3 R2UdjuZ5VYZdoNHl YvdovQJRiV5wfrxlz5jh oylbYhAeCTKwCSg7EVs4 SESqeMrvOtZtYH61ITR7 MKJndcVuF4UpPPAw yGaePwL5i8C9Ai4AN4AJ RoqsV3KJALMNMRmqoCE+ TM40gc78F1TxKazmAzl7 QYCyLNS1gCH0zF8y WJLyFHtbn4X4jHM9F1Qh nfOnto2xf9wlQPLqDNeg B87ghNFha8Y0NOPkeDQ1 ZFQreFazAvMjyN87 Oyc+AKVuuPwde1HsExvj d1vjw3dpxBi5LkxvTMYv laEahQzeCSF0g2TqYx6h BYMlcDO8zGV7cS7h UhBqRqS4GRstN586EmCp xTOnXstiV09jX9IwtBA+ UEOjZqc3GMOcvMrxDR0l X5KzTMWxhxgvdSRc nXvqGG5iNJEyxxruILAp bK1bXXNgE1i3LwReCoG6 EUzaM0CbMPIkfxjaKt32 oW4pWiUwJtC4CLlf H9HeziX0EZYwePSzNBxy HMJ2F52mg4X6HLAhZXMa OJB2mGN4qF5cxEglrlxe bGVmdDsgdmVydGlj CFasBPkqT157BQTsaPek PkNvZGluZyBEYXRlOiAg MDMvMjUvMjAyNDwvdGQ+ USYdFQN8pGdoIDVm aBYbXZwwVq7efRhsdBad SN4dALGyisxmYXXmiL2k VAJsdRZmwRhnYO4oWMBu yswfh499WnNwZMY7 YCWngAJhZ5OdmD1dHyFl TCPyIUPkO8OpsZTbCJyf B200TMwoAnW5BANnkhNg N6AiDNCmhIffIwO9 f9K7Ck7Zl2EdvrpkB7Dw vIGsVeNxIjurFOc3H0Te PjwvdHI+KY19EAQjSK97 HAg6VDR7vYkuXWgu GVZxU4YrnC9oYpLxDGVm ZGRkOyc+PHRhYmxlIHdp ZHRoPScxMDAlJyBzdHls ZM4oXn7tPOArSISa mOnxzAAjPhPsp2guSBCr ATklUQ6tlHrqZ8FacWA0 QZCmp8r1Nn61F30pD9Kx dXA+DDLdlVS9cFE7 zU8qQcSnKhF7VQrvR282 RtHeiDFeVaphf3miv2eg vYb7BjM7VUDxgdDlkQat CWC2i1YzJj13G86i IHdpZHRoPSIxNSUiIHZh gFsaqc3mhF7bAi2+PGNv lTH4sJA9hO6sXbFuEwW4 JPxxL270VsJhbPWd Jewhh1guq4gqcBi3KhTe YDMeumSetScbPYF2a6Wm Vk13I6OniLmmv8PyDiv1 ze95fWFam4U6aMB2 P0QzYJTuzqazjYQemHhp MH4rBMLmkoteZZQavT4t UVStR8l3XiRkVcX0UWfi I9ThflW8UAHjiWAg YPFahOSQqP7mvlhlw4bz bfrzFiMlVBZzPRd7VKn5 VLAbyAskBaBrJNY2IvZ6 OWN9nIDgeM5mnAxn cbfjiF9lSaa+NRM9fMSj wCADDJ4tKlsekZX+PHRk EHB2cRxqFFzmGUHhfX3l GIVsE7k4LaYxLnP5 OMcpC7JvpiG2ZDQzwLQt TANawKDJqR4vgxxcm3gn vfguAsQvMGYtCFg8XYd2 LWFsaWduOiBsZWZ0 JlB9NGF5hTIuvY6huNae hocolT6vQpa+QmlydGgg QJT1TYw7O8ArGsn9WHPm xZqyDM9mwHOaXZyz Bs5trSvdtGzjSO5mMBSt gcemb098EoGmp6xhXWSs cIOeTXrgJFL1I45ob5R8 LHYnNZNbZMV7pKE7 hR6haIklrsuorEMpvSkd psDamFsyBOrvYScxD436 QWNhfKfqGlKkDEd0H7At Wui6PJLaiCapCZ1r oIOzYKtvYm5ixJizkGxc YM2aCQQhvvdxb944PuTt s2hoUGJslTIdQWzcJJB4 G27cq7F9DZXmLZPq ZMN3hVT7tN8urOnqeknq bGVmdDsgdmVydGljYWwt DYwvK781FNEqhGvbVnNo iFe6X5HtXtr3UVEs fTgcZK8ssKPlAJiiUe6o kYqfyFweTJ3sBVKzkvye s763GdOeq5jxCGYxtYEt RAlcNUP1Y71un6L7 KAKaBHMfLQX3mAJ2zH2a bGlnbjogbGVmdDsgdmVy kWfsJOngKGzcL575KTAn cDsnPlBhdGllbnQg BEraBFt8P7CnQeperYB+ BG17MJEgAJ20rTVbuACy i2vmrJx0OnHcOXJzCJP7 mGwpZKcnk7GtSSNr N24boJAfv2I8PPXhtZmj wSNhKpBqlYT1cM2aISht mtrzw8oiatdjSawwu8gm nm42nO36Y00yICui ZHRoPSIzMCUiIHZhbGln ud1esF3vKp1+PGNvbCB3 fXM3nR3vHGAwWyD7VOpd Z038VmErsMNsFkpr r9kfe2iyyPk3GnF5CXTp vhCvhMfvROB4s5MzWl31 Z63eYYysJQWvZOUyDEEz CQQhxIasgi2gtG5k Ii8+OPGawGO0jLW2mN8p QaBfHbW4WVxgS638JaUr tPReXareG71zK3WyiZT+ PLNeWgd6XGWffDvq AR8swRAaRAiuNw1qWNN3 YqWsYyFtAKttC8RsFLTd dwfhjrsgmAY7NFAqLDOf uI96Tn3wfKrwTWTj sBQGkM2cokwhq0dbqnpf DzDxTMNiFRp2WPl8HKVd kXvzXrFqSDI2VyQ1FZH2 vQFrxP0sjGyuvorg rZ9oD8OkZMUufxeqCz92 fR6sKjGqIoM9JMlaQzz+ O9NPXavjOE1ZD1tCWYso SzwvdGQ+PHRkIHN0 mWqkBOkdWYSfiB4dWZDk K0m5NvRfSfQ1YEwgU4Oe AZKbhepmNd38xQ9jNxKa LeZ4MMqqV6XwqiN8 AMSvsBXtKLiwOQV6H77l j4S7YGQjMERtUCK8iIS9 rX7dsHkjivjypAPyrSdi dmVydGljYWwtYWxp G965OGYdwSqlFuMoPbD1 QbE3ZaY7I2AcZol8PSTg gNybVW5bsBZiWCklBo3e bJymfKvnST9pAFSr umkmZUCjbN2oTRXawNAl pXkrMU9wROPgzwzbr443 UlSqJFG7REUicNSzI3Qh kR3kThIeVTUePLJi U8EwfDOzMRrgQ287SXxj EhR5ALDxjxXoK5LlDMJt eSycMqK3r5L1Zd53YDBL ZWFyczwvdGQ+PHRk PTO6sJxaVQgzUHIjwO9d EWEqH2d7TeNzUqS4FWtn W8FgCPBinyggLb64gF6y JiCkHyF2OJimF3Wd hcU6YCBplWNvGIqbSRN9 Z06nw2P8KGWvNFFtMIH8 vQB6lP0puOyjbfqetOJg dDsgdmVydGljYWwt AQkmY011REFtwRjwRo4E UQK9Y3FyBwk7UVUhjQxa ZY3cjMYgABjdGf9htXlz bJyxKQ4sONVddwti FZQeaV0eHCUylEAirAde DO6gCWBpvwpnl352IsMp IPO6VLIdpETfP4TvdD0n ZxRhMHVmFLMiK3Mh tMGgGVfoJ385LKrlXoB5 AQIszjZzF8QxOHZsmRyx DhD4g7E9Kl5YYGfzmCO+ YG50mh77X8HsKrzx Dqj0LLCxYDZ9pHI0dQ9h ZCKcWDwxq4E4aGF0U9Wr vmDnyf6vo0elFFPkWQts O16asVHau5U7OCRg gGR2CWVrnDqvGwZjzL51 Oyc+PCAecCebe9YvByjr i8hvq1nuzRw8OnXbHEEb vpJqhJxsLIP4v8Ed Ct14H46nRRaqGXGcDTHm XUIrZPXbbDrbzp5jyL8i Ii8+LQZbnTJ3mNR1bL2w DnVsJqU3KPhyX885 UaLxzAMmKimvv7lum8nw iRg9NlKuBZZbteXctEub XCV6b6CeMb60F9QfcSvl e4QfXyk5zq03iMQa k7V8lNT2T1HnXBSmavvq iAKecVokIX1tKJYmntuu KBPinL9dMJTyJ2n4YoTw EiH9YPsqR5PrrmA9 KQUjnHNrBEHwuRHRsB0s aqwaw3ejhxovSzIyKNQi WSt2NNg4HPUfhOscSbEa RNL9IxJ7GXZ9dMTs uP8bmWjhabyixL5jUmk+ GOt8v8nkdPEzSS1raMZ9 OV09VZ75wSEik8V0vWD5 O3AlEBNmzilkncdg aWR8ZXVrRBFecG80Wd5r fJwyKs3mBFSpOVF2TQUa xZMaK0IvyV5zPxUjHNVr MQSlY1HxvCVrWLaw A233GMmkTqG5YOCcxbMu J2LmDCXmtHorEyO5z4D0 Ye7RHO76YF20UZ28fRUk w2I9eSO0I1WbYZDv bfiitgcqvQY1REKyGFXn lH21Ac1nlZfvJp6vARUx CRG0QINodSYzX1ZdxM8k NmKeBAEbRKZkQ1Vg oXBcJPxhH342WCxfHuA6 XHWebvDeJ9UgQRQokKfh YnW6k3C7Gk1XBs26BV07 LZ79gFMiv8P1sWC0 K5AlFLXguowsvgeaeZI2 DBLiFMWboN55Xk5xoRzw Ky6cVQHcEZU1UDJpjBRj K1TctG7bEfPeHACs IATlH7IinCNaCCeoZ914 SIvvAmH3SAPeccAjB5Ww ULVpkEbfDdL4r9T6Ug8C DVtywfr6Q3DhUpta dHI+IL07UIFhTN83pSSz oFDmq0vupOm6UeYuLUEq QZK5pPpcXMvkq0UxKINk Q26lqRZui3J6WKOr bGx (more content not included)... [facility] Coding Summary HTMLBase 64 OjfwjlsnRNd8pUy+PGhl YWQ+OJ7XZCXuG93deKHz sF9yX6UOHRcYJmsiPOOY CLcSIyPuqbRhRP6dnCQi ZXJu IC8+GT5nLCLaJxnmbLPf c7S1bWN2Z11lki9iFQyy bSK0HWNoXiSyvfyep4iu bQr5YGnoCzrtOeMq DFVtfD50BYU6mW45Kn46 xSQqdBWyr3qkrPo4YvFd XAWyWHZ0jBeoHUlki5Ca AOQoA49byPHpz6J7 IGNvbGxhcHNlOyBlbXB0 tX2nRIepcjmrf1wrzcly Hxc8pj27bOZsh7O5sIK3 L6UudeJ7TTRnbURd YiqukJBDuW0ztggct6mh qjalRuXxTRGxGQo3BRo6 IYWscIuoDjQeNC33KIV0 KEExqgEyW1NqIMEs gUavMyL8l0C4Np8MH3GG YfkgN0TCCVETVCrldUN+ XW53rp02Q1LpPxjiEmu6 VRVyRQW6mPE8yP9x VQPcUZupt8V7rQH1S9Wt fqVxpg1du7mnSXJdJLeu W52bpSVeh4Q3SBKsuEI2 JVMvgCidYnSgyC22 Oyc+TZFyoFnep4SeJayx v1uam3yyaAe7VollKAMp mdAwoJgjBOD8j3GuWu1g CNKqjLH3jLL8rB3q CyEtIiZ1RWrsE673UjYy rOZcNsxkG65nY3WtkYD+ SGQlRjt6REWiePsxHU9z P9HdOSRihjigkJKd sHnaAR9dTOEsepxqODQs lJ3rUCRmZ0c8PwIvIzG4 FZldN8IkYQHtmrspSz70 xT0zCnEuDkF1WVrd T1EercD7FJAjoTZuNNuu WQH0Y14cw5U1DRMaFUUr CMB7sTS1kH4qoWveysrn bGVmdDsgdmVydGlj DEljVNafQ543HRFkxEbn PkNvZGluZyBEYXRlOiAg MDMvMjUvMjAyNDwvdGQ+ RWEeRVP0pGvaERPs rYNdWRncUh6giKfbnRth WP5cWBXufcfpGXFaeB5z BYVfyFLomDlbDL9lLUWk vmxru436GfFrHXH3 OYUmwJCrH6PaiS0qBeMv CEOnCOXyU8BpuGWrRBdk D574DGebFuO0MZMrhdLv H0WnFJVrjVgqNvN2 c7S0Ai0Jl7CfzoekK6Kn zWGuFyYiMxsyIXv0R8Wa PjwvdHI+ED61GGZiZX57 ROo8GLP7xLmuCTeq FLDtY6AzzR0zOiIyPTLu ZGRkOyc+PHRhYmxlIHdp ZHRoPScxMDAlJyBzdHls BG0qEv6mJOYdWUOg pPvfwCPkFqJmp9xyUCNf WCiiYQ5qcUvvP5IqsJO6 IDMiv9d7Qx70Y73wG3Lb dXA+EREkfIR6qWF0 dO0wChJkEpU6DDhkN592 DePcbCOrHvssx7xck6tn sNp4AdB1QNSoppKtvCtl CNJ6u3MvAr72Y63e IHdpZHRoPSIxNSUiIHZh eEhbkl9kfC6ePo7+PGNv tJC6sWJ7hL8cShKfTsN0 NQipV302GwQwzPBh Vgebl6bss1pyaNs3HuQu LQAnoiLuyHeiEII8b0Vh Aj42R1VxcGjbk6BaUwj1 my82sCTwd4J5hTC0 S2BlOWCwpatmeAZhoJif ZA8rZBOrqrciXKDqzI7j ELHhX5a8IpZyYuH9VVnk L8YsbkX9FOZdvUSn MDGuhNGPhQ2pdtjeq0lk mfdgHmRqUFIuNZs4PFt3 ABDmfGibJcGwPPS9MfT3 FAB2eKQirH7otMnq mkgmcH0lFyy+BMB5eHUh dPREHA8nEpwwiQP+PHRk IKK5uJjvYNicJXNihL6i GHLaU3d2GpUfIuV6 PYfsA7WawaY6LHBytEWh QDLvhEOVxC8pcfrnv7ae rsxtVzTsBFCiEMi3INd4 LWFsaWduOiBsZWZ0 KtM4RJH6iWKnwB8eyTwy adcwzT2nMta+QmlydGgg DOY7DHi5M8SzCfh6XWBt eHyjFB1yuXPcJOhh Hr8hlRkdwCvtDB0pOBWl tzirv351NlInx2qfXPTo iZHoXVxvRNO1L71nj3I5 HXSdZMEcUWW4qAB8 hN1ydQzsyjszzPZmpBwk xdXvaIwqQPjtTXgrG860 UTHnhEedUsGbIJa1U2Vl Umq0GXTgeBphEQ3n pWNzNGloAv7nbHabdJmz DH5pZRLfiffss163ZxTf u7biXZWgkKXtANsaLQN9 N03wx1N0FQOuDBBv RYB7sMA8cE6ywHaldkjl bGVmdDsgdmVydGljYWwt ZAbkN901JWAscTusBzQj vHt3O0BbXvl0RBNx jYokEP8ykHFuOFwxOm2x zVnfoYllVX9nGJApnwbj r510LkEas9xlXDHsmLGl NEycQQH5N92du5E7 WYGrSFQfZOC6nOM9nC3q bGlnbjogbGVmdDsgdmVy lXlnXZwlCHkyK618ESSh cDsnPlBhdGllbnQg QSsqWNg5J1YrGdbraTB+ SR80UGBhYE94tXSryDTj c0sciYj3WvUtKNKkRWJ6 iQuzOJhdn1MpPRNx V41deQHfd1Z2UNBgsXpn eSZdXwIftIC8mK6qJLrd vnzjh1osyaylSohio9qw wr61oP54E84zWUqd ZHRoPSIzMCUiIHZhbGln ya5czY9pZh3+PGNvbCB3 aNU8jO2rKXRsUbB4LMtq C912PrXjzGTrGtpn x6dav8dqtXx8QlN6XZFh ieBifYgrPEH3q0BeIw96 B77aMXrrNXCoKCYkWYZg YBHtsHkdkg9lcN4t Ii8+NGOzeUD3eCT7vV4a FpLeEvZ1RVcaW318JuHd nYHcZqhqY88kP3VsjGM+ PJNqUqw3CUVrdBrm UM7frALuSAtnZd5wVIH8 UkMuKlFrPYjgO1AhYIMi xswpgveraOU2TKMuCQTf eE97Of1rtZkjXHLc jVDFsM1qcesor6gwjfgy ZeUoQOZtLKq8ONy8GBOr cFyvYqAvJQI3BaN4HKN4 iGRviF5pjNzyztvm iJ4vN8UeTSShfjcxFw14 mP5lZdGlEcN3QYzjKuw+ U7JRCiobVN6XR6rZUAxz SzwvdGQ+PHRkIHN0 zNpcZAveGNAchB5tZQEi Q7t5VeMnUaF3DPfhJ0Qk DIXomzhgHd04jO6eJgHt ThT4GWcoC7UhzhU5 GHUhnRBgNBsyWWC2Z90u x3J5BVNbORHsJHF3sIP3 oU3qfXdcmctfuEHjyFah dmVydGljYWwtYWxp B108UXXcaSpiJdNrGaP5 GjL8LfY7Y1WiSsx8NDCa yIsnXQ7ljKYbGYmlFs8o dDohiVkpRU8xRNTb bntlCPQskP7tCBYrkAIb nUlsWS9hATKgomayo495 UlAfYOL1CLTfjULsO4Ao nG4zMpOeFFGiCYCm I1DvyWMtHWfxF406YKbk SoL7BWIrbwZgR4LvPMEe zBqzUqK3n9O7Kf34ODDV ZWFyczwvdGQ+PHRk OYU4lBgzDLbwEFHupA1z LPRbV9s7WnLtDrA3URte N4ThJGFsmdyyFr28uI5j IvWvXjD5VOboN4Du liO9KIScpXNrVQmpEHA8 R12iv5R8UEObICGeMNT4 bRT5hU5rhCprpjdeeFHu dDsgdmVydGljYWwt RTtpI212MTZprUgnJn6P NIJ7J7ZxSrn3OVCsmVvj RL1ojHKdKYrsOq0ylLcj aTzoWA9bDFWhwtbw RPXgtF5wJDMrsZPecUtd MV1iBKYamgcsc578PnDo OQX9GJAudKEvQ5HrlF3r QrJeYOPiQGDhN4Ra lHRvMObsC225ZLuwInD4 KAIfnkWsU9PmDPFlrQmc BzW3o8G1Pl8AQIuowJI+ DE42mx52X1GiUiie Pyn5ULRaVVI4fQU9xF0f HQKlJQxcs5S5pKN3D5Tc zqHpty7pj7qvZRAqPCbd I32pcQQds6L4AJHs mCA8YZPvgVdqReVtuH31 Oyc+XGGtjFkhp5JpTsus u3yvd3wdcDf6AfUwVXIf peEjtYhmSPF6b7Jb Gn08I48wGFfrMXVnFZQd NFUlLJJqiVwmiw8wuS5o Ii8+LXVhfOH2xYL4tP3i VqHdRvO1QHkiP338 KlSifZNcDwuon4cxo6ak hHj2LmDkIBLzcrVfsIde GYM1v8WyNx96G2VynGzs s7YkGxu2qa31gBNd p3D7eKU9P6PjEEPeekmi qDFtrLggAM9dQQBynhsk WOUepT2tNXIoN9l3TqNz OlS7YFgcJ5TrynZ3 OLQyzUSwCIYcrTFTuR1b wrfox4sxmcrpEqThOZNq QRq7WHw3YBHuwTvrCyBk QNE1GvX1QBB9zHDu wP1utKbyvopgnA9kWdr+ EOi3i8kbbVDvUB8nnFT7 EP82AY16hUGta0M4dAR2 K2KtHEAbhqlxizpl bCO1GPIfSPYgiQ51Bi7n gKlrCv0iGAYhAMU2YIPp gZCzL6HaoE4fWnEoMIDn XKMaJ5KefANvJOeu K056RTfdBvK4SPMxjfFs L5GjQZPmqSdrPnD7t3O2 Ns3HSR88WD32ZM17hAFk k2F7rKM9G7GlXRIr qoyxmirapZA8DERtODAc sB05Gy0tkCvhRw5gPTDm YJA5VLNpgFMvS6HxxA2g VgBaXROtLGPwV6Lt nBXiQMtsL842MYrvGmN4 RIQqyqWqT5PqGHJriLwx QcM2f1R2Ll3THc69ZA25 SX66bNAsj4Q4gQV9 N4QtTQKljtilitdsmRJ7 YGHdCGOsiW14Oh0ttFpl Bg4uQRFdPLV6LOYrrOQa V2AhmN5vXyFzTBZb XJRtJ1EkmXAgTMexP926 CPonGlA2OZHrrlWsH1Yo PSHytUklAaN2p4Y1Xr5S TZjvhhp5O1HqKcvp dHI+HD07BXKqHD03jTVw hLSzw4agxWh1QxReLZTe JLB3cAdnEBwoy1GeAMYc L76qsGFzd6B6MITs bGx (more content not included)... [facility] Wound Care Noteon 07-29-2023 Wound Care Note [id number]#1. [email or web address] [facility] Coding Summaryon 07-24-2023 Coding Summary HTMLBase 64 YfrglgreNHs2jUd+PGhl YWQ+ZN9AMNJlT20pfYRr yH1aP6DIKMdZPvwbDOQD GJzNCiLyykKiLE3jjDGl ZXJu IC8+TY3mFDUtGvgfuCYk n1N9sAE6R04boq9wZHrp sTO0MYNhZsXnutfom8yr eSd3PEacZnucQzZu GIJslZ40UGL9pC11Zp35 lJZrvUIdq2zrlFj6YcYd DDVqVFR7jHbcVDrmi1Zc MRDpP69doHNqh7N4 IGNvbGxhcHNlOyBlbXB0 fM5lVGljxmwsd4trbdxi Zdp2td41nEOhw6B5hZA1 O1UexcF7ANRiqCKr SilcxDAJlV2tkrilg7wh mucgYhNlMMNaXDo1JKp9 UWZdaMblXhXaBR03NME1 DRZteuVtY6EfJJVz cLxvJiS1e4K8Yo4JW2CC MwznP0TZPOVJNOicsGG+ VH52fu39T9PdXrulDti7 AMXeHOM4yYH2zL2t YQQyXLare0F7cKA3A6Ve dlBsfi2ad7seSNWtNClf A66wsWQcy0P6OZRibLO9 MSYbwTcgYxClsW14 Oyc+QSGejUkmq3OyVzre a1wof0cdaMl8EryjPWNx dtNuxRkhSZA4v3MvQq2t OFWquVL5mSF9pR5z CbGsLsX1HLlvG171TsMu wBIyYarnW90zN0ElsHI+ IBOnSme0LROsgQsvXZ2l R5CuGONvgxytlKHr iXxgUY7gKTWfxngdVEKo wD3bTQMyW7m1LjZbGbU6 KFszO3UlMHWlajytKo61 wH6vEcEfKeO0HAyj I9ZozgG3OVFnjVDvLSso JZF8Z80rf5T4NDNwCJBo PKN8pHC9eF3jdHzfikpt bGVmdDsgdmVydGlj EFgbVQfoV766CRFcbLnc PkNvZGluZyBEYXRlOiAg MDMvMjAvMjAyNDwvdGQ+ ZGUzWFT6kZtlHZRh rVYiQUmtHb4bkZrbxXiy YT9bLIObexekUZIfrP0w PKThhJJpzFcyBQ4pBWHl dtvgz490PtHrNGW9 NIXmiOEkB5LikK7eBdMt HTAzKSWfH2OhfFOhEIiv H958RSsnYbS3WZZdbvGl F0GmISTgxPmvAxQ4 j3P8Qn9Iy5ZfxmuhG3Wh eDDeRhDqZcffMRn8M4Kx PjwvdHI+DH35DSXjDQ87 QVw2TOC5jRqjQUxv PJLcM1PmdT8fZeHlYDAi ZGRkOyc+PHRhYmxlIHdp ZHRoPScxMDAlJyBzdHls QG0xOk2sYNIiOQQw gPcjoLKbDhLwq8atOTEw TGptQU6wdQrxU1WzrDV8 VLFpw2c8Kk16O82wL6Qy dXA+WDKcfMJ1uPH6 yC0yNhQqExW9JKsbI623 BhCvkYAqUdpse5uxb0vu iWg0LwL8FMLzklXftXno YXE3h2KxJq02U32h IHdpZHRoPSIxNSUiIHZh aEtwzw8jrN0kJq3+PGNv yMG3gEM6dT7qVxZbKeV6 XWakT782ZgZllYGw Logqn1ojg6lpfQu7HvFy OQKykuVwkIvpJXZ7g9Cn Ir95S9MquCpys2SeVgm7 sh39cRSnr8L6mKC4 G9EvDEYctivyjYOelExs TW1eMFNojgwdFOQpbF3f MRYoG3l4SjJfOzR8QVgb A0HecbK4STUfzRGt ZSXanSKByQ7sqfola5aj rcyhHfCoIFFuMYq1HLk3 EZYmeJxrNcHjPQC2KwZ5 AJF9jFQlxW0eiDff eayqgK5vClj+KIS9lWSv hIISHC0mUelxdEL+PHRk FXF7zRywEQfjOGPhdD7w AFWfW9m1IdKvVoR3 TGadK7FzkaK3WJKbdIFv SSCmlIHKiN3hhnvcz1ra ojlhCtBdDDUkRSo4GPq1 LWFsaWduOiBsZWZ0 DjL8ONI7yUPmxM4geIfb hbhrlM7uEnk+QmlydGgg PWN8VOa5P7NmFom4MTOq qKetIL4sfDZnSKgb Mn8cbElvhBbiDT0iOJRc joayz967ZsZoo7thRAAq gGSoZPsxMOT2K24kj3Q0 CKWbTITmGKP2gHA6 yD1hyQlmovcgdYPxpZpo qxQddZolVUawVDrdQ670 DQSfxRupMjAhWHw0Q7Bu Hrj7RDMyzZkxTY6w vHNwIXisCr1zuKatmFvi BI4xMOYawoiqr972XeHb c0vlMPChdUDoJGtjNXE1 E07zi6Z0NPHfFQFk YTD5cID1xP8ppUpwvxjl bGVmdDsgdmVydGljYWwt UUerV431JGLzoSlnMdIq yYn8O5UeWyf8KPFx bLhqFG5ebKIiBHrlFv7d kXcynOwzAQ6qRSIfzfvh t700DbBdk1qtFJNhcPXi CZgoBGU0X47ks8T9 EGCmBSWuYMJ9hMY2tV4t bGlnbjogbGVmdDsgdmVy kHqaDZhrJWzwC170FRDi cDsnPlBhdGllbnQg DEwrDNb5G2CfCxktdID+ SC49FOOyKV96mEJwpFQf z5psvHj2LzEoIGMpAOJ9 aPybTHhir5GxIZNy R71ewMIpz8L4NRQubBhd eASfPwEwxWZ2mU4eUKbo eqxca6hamlnmBaptm4ot tu55eK69N95nJHqe ZHRoPSIzMCUiIHZhbGln fy1ooP9nPz2+PGNvbCB3 xOU7nJ8iMLJkSgV2YTkx W629PtQrpQEdWotr c6imc8gtlHj4NzQ9TADg gsRfyGtfOJH2t7XqKp21 O39uVPpgZXOiQEOzTYMw TWMqwMhzni2hhP4o Ii8+MSPrfUL0rOS1nT0b GgVlKrM0MAgrS202ZiWb oCTzVqrfG39iA0MseWU+ MRXaXqv5JBJmnXad HY8lwPHjENmzLq0iXJR7 IqDpKqAwEXadK5DrEYDr aqfeqgmmwHW5JWRtOXRf dJ28Zl7aiJnzOXFf fRWXxE5sxmxfy9xxgruq AwVtPZWaLVs3BOj0ZOYi zEuxClTwNQX0ReK3EQL6 sKDdgS0pvEwcmzpa oM2eM4YiESZyslbkDc26 rN6nDeFkPmP9VGjjVkq+ G8ZFFwztZW7KF9pMVWkb SzwvdGQ+PHRkIHN0 tTwxCLsjBROuoH1bKNTm E2c0EhBeLvJ4NKcxM6Nz AVAmzelqJt66oH8jJzRg CrF5VBzaU1BjiwH0 BGJaxJDyJUibKHY3Z65i i5M2QYVbGZTbBNQ4aYT1 wF9oiSglxycubZYseFfa dmVydGljYWwtYWxp O974MCVwnHxuOiHgTrP4 GhF5KvO3V1VvKuq5JXOr wQowKG1gmNTrSCtyPd7m iMaxmVnhSL6vMPQm hdyuLRDmhS7oBCLbnREp mGibYL7wRBZxcnkaf437 QzLaDKB7FXRslFEfY6Sd gG8dCoQnWSQyFIVx B0AiqHYtVOpoH254OBhq BdV7JTEepgYiE6KmHYLx pWixOoF8u3U4Li42XKYN ZWFyczwvdGQ+PHRk CXR4lXdePAjoQCRptA3i PWPvO7c8QtPbRiV2URcv J7EjWWXhwvuqMm30pZ4r OcVqCsZ1TUbyP0Kt piP9MEJyxMKlLGahGLU5 E15jl8P5RYLuPNPxJFE0 lOF3cH9bpHtjaicrmZFh dDsgdmVydGljYWwt ONgeM769FPGtkUmgKp4X RRL5Z3ZjVuu2FDCcnPck RH1vsCPrXNqmPb6zvUld pFedZP8rYUAzqlkt OPLimV8tAZHqxQZuuYcf LJ8bFHJnndxyb703CzYi JMP7GHOymDUwQ6KqdB1z NxKtNQKpTEOpJ5Do tEVkWXktD120BYetPeR2 TOJpmrBbE1KyKVTqrFkd MiJ7h1P2Tf0VZHwkvZC+ YV75dr10X3SaPnuf Xre1DUUqJAG2bCE2kE3f QQHfGTvcf4V9sLI5N5Oz vjWvmi6ba7pgLVWpNUia F70mbCQmu8Z8WCQm aFD3MCYonXgzJdLezI41 Oyc+DBLttYfhr0XyAtuw b0gcu0pqzJu3TgCvJKFk nkErwVmaSWJ4d9Yl Yx25E15bAFykXADrJSGz UOAdJFNfyZrwao6arH5l Ii8+BCBrhFR5vCV7jV9t ErFeYzP1KJwnT242 VoYgiEYiZhitw8evv1zn jNp9BpDiXSTsbiUyzGuo HHB7o5TcJj44D8RclHgu n3AmZqx1bx11wXLv i0S4sON4F5DqHOJhozxr aUDjlXtxCG2fLGGpbpoa VRLerY9jCJPuB9v3GbHj KrW4JLbwS1NcgsM2 DFXxiPZnQIUvmQHZjS3k ljzly3jixcshEaWqGYZg LAh9BZp6LZArgQneQfMp PEJ3WxD6KEG2mRVa lG3xsZgdpptugG4uZaq+ PUi2y9ribGSiST6slZZ4 NX04BH16zGUqu6Z6qZU0 G3HgMNVejtkgzkyq jSH2WYUtETSozO69Ww8o dSwoIe4rLSSvAAN9NONv nUQrO4GbhM8kGfDuFBXm CUIgA7EciDQlRQjx A492KJxcOaA3BLSsksQm C0InPMTypUpeJuN0s8H6 Me5EOG12YT41KV00jJSi p7B4oYJ5K5LiXONq cpuzfkvjqDU1USWeFSGo xS57Mi4mjHavGp8oANDb VRO7AMIfnVZoQ4RffE2d AoGdOBBqSAZjI0Cn mHDfOTekQ484IZubXrN0 MBKfigKaN6BrGGQfmVyi WiA5h4V5Nz1NXv98PP94 GN75nHRiz7O2oSP8 Z5MvRIBbvpdblvodfHV3 ZSRkVVXykN27Sl2hsRiy Bu8mJLNlZSF1MBOgnKMx L9UjbZ1rYzDlBLUb GJAvG0GukDUjFUmpM510 ACrmZhY0OWWdzfIwI6Mg UQFsnYevOlY5w5K2Qu7N VYgjxrs2F9NnJnbm dHI+NB87HRCmHF76nXEt vNBwn7awiLj5EnPpLUVf XTI3pXqyOLsdx9PhWRXt E36reAYen2A7FJWd bGx (more content not included)... [facility] Wound Care Noteon 07-22-2023 Wound Care Note [phone] [id number]# [email or web address] [facility] Coding Summaryon 07-19-2023 Coding Summary HTMLBase 64 DymszxtbRMj0qIc+PGhl YWQ+UX1GILGeT17fmEGq gI6cY2IYPUzCVosrJJAE OVpBFjYsisGpTB4frGQc ZXJu IC8+KR4hTBQzJlaezYWf s2J1jMJ5K70rwi8aJYme uCE6TTXkMmFnmvtja4tm nFl7AWeiWtfmWdEp HHAqpD71ALI5hQ36Vr22 qKMowEMnn0dgcBs4XvJs ZKLuBJR7xHjxCSome0Pd JSJrC28hiCUai5B2 IGNvbGxhcHNlOyBlbXB0 lS2nLUcptpuvs8mlemfa Het5eg13mBKqx5B5nQN5 Q9FpdyW5YJJhtPIn AennkIWOuG1nvgonu9th kkyqRwBwZYSxUIl7FPv8 YNGirDsjFyDuZN99CIU1 EEYjnrJmG2LhBPBv jDiyGgV2z6J8Fp9KW7MQ PqzbT8ZXHLCFOQeyuQR+ MB37po03T6BeVvexQcy5 VJFlIUN5hVH7lZ4f ACLnPDjuu3D8sDZ4Y5Ac oyVopz0br8agJVYlUHnr X28gjJDxb7V4UHEpsNH7 BUXcgHzySwNzzA33 Oyc+JYKawBedy5WwErpr u4zgx2gadMs0NbutQZRy fiYmnVbrDNX2a2PsUq7p SIJelXN4kCV8nE8f TgNjEmP3QMpaS568FiKv oJZmGnugH25mY1XbcRR+ OKEdEfv6DJRinBdxRL9x E7XmGDWzroxrrIZd cKhhBN7aLJOfxuydYRTm wT7ySMEgD4t4IvGrYaK2 UPwkU0PhTRUhjzbtWl82 rG3aJyZoMfV3XXvr F9ZhdwI9GOKvcSJeVCzz VGL8F84aw9A1IKNwNRSi SPJ4xTN0sN1zgRyjbcze bGVmdDsgdmVydGlj RZkeZJftG766CEGfrUsw PkNvZGluZyBEYXRlOiAg MDMvMTUvMjAyNDwvdGQ+ KLVjBHA2yExsAJFr fUTeXKgqHn3xoFmsmQwh WW2gTZFpqasqHXCthZ5t QAAjpPWkyOpoIU7gFECy jngxb741VfNvMHS4 KPXrsWTvE9EpeL3pGoFy BDUcESTzK1HniGWkVDkk S726FXarUxD4HLCuuwWk N0ClSBCnnQexHpT6 t5T6Yu0Mx9CrnkgxO8Kd qDKjKjIiPlitTFn7K3Kh PjwvdHI+NL16YZIcUF80 YSg5NNC8rSyjHKdk PVAiG1RixR7yRkXnCQXj ZGRkOyc+PHRhYmxlIHdp ZHRoPScxMDAlJyBzdHls BZ5hFo5zTRJqSTCx nKrurESlVaYme1jmAVQn JLlaQY3yqDmcC1XvjUI0 YAOhy8h3Ob34F76hY4Fz dXA+YLPtfOZ4tFZ4 dM4sGwNvIgN4JFmuK507 ZrHxgXAjFvqme5cny9ap zBy0NtI0XAZixrEbhBbj WWH3k1QsSb87L20q IHdpZHRoPSIxNSUiIHZh fIvytp3mgG5kIs3+PGNv lLH9cJX9zH6vApKiUbZ5 TIgfL446GdRkbSHd Bblli8gbg2jdgYw3LbRf AGPboxLjwUfeXUD7f9Wy Wa17U4ZwoKabz2YyMsa6 vn16oIIdt9I4xZH7 C5MeEJHsvmzaeYMjwSzk LK2tAZWfgnzrURMmvM9n FSIdP9q4OvZdKsA4RNxz L7HowxI0ARFwtSGq TPTrhYDIaT2reqiqi9cj zmtqIcXyPKPdKOd3ETw7 PPYhrOpdHbXfCLK8TsI5 YTL0eKZhcM9phUci jrrjiX6rLhd+AIO0vSZy xMITXR6hAebooNA+PHRk LTG7pAdfPUwuJZJqfW9b EVFpH4e8WhPwUiZ6 XVkuZ8SsgwZ1ADMptEGh ZNXqtEIBuF3mxkvtg6ds tqgwGeAiXVTiLLh8VMe2 LWFsaWduOiBsZWZ0 HmG9CGB3aQXomV0jsZqe jbjxeE9fBoa+QmlydGgg FWZ5PCe2K7TuXtv7VMCc tJfqNZ4kzOGdSLrk Ep0clUxvxDqgRW6gIMCd bbcbd759BqQxc2grWLJw sWQyUMzyUTX1E11xf5R3 BZNgGMEpCUX0wLR4 sP8obSvxydxzeDYowIui uvLrfSqpJSnsBWltF765 BEFnkWwqIoDrEUk8R1Pv Lqz1EMDdgDgsRW1y kKVqKLwwPy8giVomzGay IZ3cOHJwpkhfx757AfEg t7vcJLMlsASdHYlsWPQ2 W68nj5Z6GAAuFQUt VYC0dWZ7nW5zaHcexxbk bGVmdDsgdmVydGljYWwt UYxqU093XRNjuIphAaDh oCg1V6IyXtl5UNMc wNdnEH0jpHTaQWcwYf8j oKwrfNscKB1hSWXdzkys a095KeGfz3vcJBMmrHTn PKnyKUU0Y22fi7F5 JUNzDKSgIOU3wAE1pD4j bGlnbjogbGVmdDsgdmVy pElsPVfjQEysZ307OWIu cDsnPlBhdGllbnQg DFsyECv6A2LbGatmoQC+ FT99KBVaEP62rXYpaCTa p2yduFz2QlVgHLGkYFK8 yPzcWQkmi1EhXXNn M69gvDJjh7G2KWIvfEzy eQMiHvJpzJF7kP6eMCnx pdkey0eitpttBhten5ce gq00hX38Z82qRLwn ZHRoPSIzMCUiIHZhbGln ba2bkM3yWr6+PGNvbCB3 fXG1bT8tZFLkHcW5NOql U088OjJscECoPsbz q2muc5ysxVt5FzB5UPLo rgIlkAhoWTC8l1QtVc82 C38lLWjoMIWqDJPxNBFy ADJjpRfrwq6vzH5a Ii8+ZHTmhZW7oFP8gZ2h MjBrLsC9XAfmR188TpBx xHFgBkcgY95lZ9TddHT+ KTSpVhf6JKXnkIrf HE5rkXOuISivPl0kHPT0 CiAtRzRrNMhyR5XkORDp ndzzmjumgKI4RHDcPJHv qA72Zl3ozLpqNZKw jSASnR2anxnui1amvuea SxUvRLOaNTz8JYk7YQOa sMqdZnYkBLQ9UqK4JJC3 aDLcnM4sqDvvtzfo lD5wA7KbXARnwtakQh67 rI8yEzAnOcE8WJegIub+ P7OBJhtuDL9VV1sSAAlv SzwvdGQ+PHRkIHN0 lLamVJcnWACflA4wCCYx D3p3TxEpLkU4DAozM6Yv XYPmyxuyWl32lN9pWjCd TmA6XQrnF4HhteQ4 YJOtzZRbBAvfBWO9J34m b5M7KYLeMPGbSHG6oQQ3 kP1ynWvonlyvfLYitKpw dmVydGljYWwtYWxp N947HHKifXyiSsPhNnJ1 EiL2NsP2F8UgIqn2LXMa aRghDN1ewETzVKdbEq9f yWbovDkeGZ2bHWJa tlxkBAGonW2oRBHenOMo dHxzVQ6lXUVeptdpg266 BmSyRHF0FGRpcBXvW9Fb tJ6sYyTrPHXgFBUp Q3WozTDbHCadQ418WHyo JjY2SIRzghTzT0FjMVBo vQodZhC0f2K6Es23POKF ZWFyczwvdGQ+PHRk WII9iGquMVarQFOugM6o HOQhK8i7BeXxLwI0IYan L7AvOMOzjwjdJv61fA9s WxPjVnK1DQhuQ2Qe xhH8MOHmbJWfBSjpZES0 P65cb0W4BSLyDAEaSNK4 vJW4wF6wjOagmalieLOa dDsgdmVydGljYWwt ZVflX480DYDeiUcfXc1W NPE8S8YpNry9ICQcaCki FU0efVZfSPivLd6adBjp uXxnHZ0rVJBmzffk UYFfnH8tGJHgkHVcjTgs XH5gZRFgnuvqt740VeSy UEI8SDBcvJRjB0DgmC5i KuIlFEAuRTRuZ1Ev hRSeGQgoZ064YMuoJtF5 JMImjfGgL6SyAOOijVne GnE6u5W4Ww0YYZyrpYL+ NI55sw15T2RqSyvp Yyh8FOBaLNV3mGL5yL1u JUEcGRqvj3S2yOL7B1Yp onFozc0ie8ykMJXsCUii P89kfCZnm8I8ZFYm zCP6RVQeeNueFaZkeK86 Oyc+MPDufLhpo7PhThuq w0qtu2lslYr1EmTgULXf roObzJanZFW5s1Em Xb07A77eFJhfBWZvIYJr ANIsHNSytRdcyj1zeN2e Ii8+MEEkaDL4tWJ3nH6d LnUkMsV2WBtuT141 XxFyiMTgQdzpx1bdy8px sIt9NoKlQSDnwyWqdHvf FBG2c7FfWc72O7NtyHan p2MuPmc1go92wBIq b2H5vTD4P6AuFGLupgcl dZQdfZhtIL2eWSJnqnkb UGPbfP4jMHJiZ8e0BhTh NjT0VXdlX4JwxmP8 XDOyzTUmDRUgaIIZfQ5w ybkhl2ogzqxsMePqXEXc MIo4KXq4AYXgjEwfQcGx VNF8PoR1KID9iPVn nD9avQuobyjzpZ2yUqj+ YAg7l9gtsIKbBH8ojIH2 TJ37CY38sONhm3Z9fIE1 E2OdTCOfhgejtdhu aPR7OBYiVSIbcN52Qv2w qMbqNw2dMBSwDNF4OBTl yKWuK5KdrG5eAqHkTXXp TKVuT3XakKNvHBwj F634CHtzDwK2UERxeoLa F7SwOFNyrYozNbJ6e5E1 Zq9PJN62IW15MW20wVXa s1L0eCG9G1QnIXKq blsefoytcMF8REWaZDQg cI34Qa2wqDtfLi1lLMHz GCW3FPMbrBLbR3VoaP8l PdBhUWPqXRXnS5Qn fSSuYKduL145DMleWwO7 VDGpnhKdC4LpZFVzsQdr XnX7h9N1Tk5XIs85KH70 BC70mNEuf8V2uSZ9 L8VcRESgakehtelfrVG0 KEGgGXFidF80Lv9cvRoc Hy0oVTVsQIA1VNElfXWh A5HjmR2jTbHeOZLa OWYhL9NltZKeVDfdA843 PDnxSsS5VGOlpdOlB6Qf SEQtsNfgGjS3k5M6Fu1K FVfzmzt8E6TmInsz dHI+JT78KJVhOT54mOBr iBXqt0oglMq2OwNiRAFa OOO0nPocZPtcv3RnUTYj Q44slNWym0J3XMBp bGx (more content not included)... [facility] Coding Summaryon 07-17-2023 Coding Summary HTMLBase 64 EczogtjqCQu4oXz+PGhl YWQ+RY3EHCXoI12xsGRm bR3yW7KNSDuYIyxePKNR PInHKeMhxqSfAL9gzMTs ZXJu IC8+LL4iOPSzQdxqiZJn c0T2nVL7B50tio2xQLag vKZ1RHPhCvLpalhiw2pf jUt0UMbaGusjSkRr IOQzoG08YUG5gI60Xm87 aFKlbISyt8blbLu7FgGd INWdJCT7aGhuKRork7Ap VEQcW95dtWTrt8T0 IGNvbGxhcHNlOyBlbXB0 hT3rZObuhehly7eqbcbm Hqb4dn04bHUry2C4bKN7 W5EsunZ4BKElqMPj IxpwpUNIsX7xzzybq8uw iasnTuQzYQDyOLp0SGo7 SQJrvFjqLlGaPQ20BDE7 ZWIfokJeA6SsQDLc sIppHvL3o6R9Ah0PG4NG NiabD6NAFFOSYRnrnFA+ SO62dn91C8IbXeioOdp0 ELMcOGB8qRI5yR4b CXFsFEzok3L6mAV3Y1Ue lyYdlk7xs4scGIIvFIue U69ecUYsb3P8DJNycBX4 WZRfjShhOfDkfT82 Oyc+RCPylNgfk6McFhyf b4jee8osnYm1ZsxtWLFr zmSkyBliKFO7t7DuFu8n KSXwbMQ3xHP4eD6n ZyZzEvY4LDmlJ248FcQf oTIhQzlbU62pI1FsrTL+ CXAxPoe2AGBllKobMS4r W6DyMOAraptzvSKg lHqwPT4mQIDvafgtTYLu tZ3zAHXiK6p1DfJzEfR5 QYvwY9XfXTQaubjgDw20 uN9aNePtEeF8CSzu D4EtwgP8WOVvjCIeWKvo EMB7M84dq9X4UJKiDFTy VJZ6tUD8zN7pcOomounc bGVmdDsgdmVydGlj UAoqMFmxC450FHVxsXdl PkNvZGluZyBEYXRlOiAg MDMvMTMvMjAyNDwvdGQ+ AORuZGF6jAccDXNr nHPcCEdpEw5syEtixXvw KN9nSDHlwfhnKAVndM7g UZMjlKIviBzqPC4wONAs ifwdt691HoEbZLW3 HZAzwKLiI1CdfH7lGgYw QJWfUPKnQ2OqvBXiEJgx N718JQndEtY4AYQlbcJo M8BgBNFfoIziOtH3 z4T7Ox7Pb3DzgmxiJ8Yf eUMuFeWsBffpOCe9R5Xq PjwvdHI+PD02UQNgTE54 SKi7JYF2mMyyGXhn VITfI4YluM9zTcGkJVQp ZGRkOyc+PHRhYmxlIHdp ZHRoPScxMDAlJyBzdHls LH0tEe3sCQFeYMIk rXpigGNlRkNsn1nmNFCs RXlgXO7agDweA9KoqKZ6 TABcj2t0To56O76vD5Nn dXA+QNDeePS4wMR3 jT9gSuDfEbL6OQxbC789 DrJloBLeZzocr5nye3be jSf2FhV8DFUytxSkrRes AET2u5MhKl18W88d IHdpZHRoPSIxNSUiIHZh pHnaik3axD4wIh5+PGNv pBH6iES3tQ0iTsWeScH6 IFnwI296SgOxkOWn Nxdsi9nev5ngjSc0OyTn XRVxkkZgmXbqURD4s3Ao Yo35B7EhkIrds4KhJpt8 bg23yXKod6L0cIT6 P5IxVMXgdezyvUWaeRuz UX8dENLdxhyrNCJfrT2b HFPxT2o7ReJuEbZ3ADuc F9WwiiV1KYDjkUJr KAEzoGDTuH3xpwedy8hf ganmEfJzRFTvPCo5BNr6 YLApjSxqNuEjXPU0QrL5 QXA9cWJzcS2lyRaj wlsgqK2gGkr+PKL7aVBh yZWYPJ5sKqqqbDH+PHRk NSC7hOeaLKofXSLnzO2q GXAjE1o8IoQnJbS8 KOvvT8FqxhQ6IMPbxCRz MYJfzREZxB1rizbec2si thouMqBpLGVnNPv8KPi7 LWFsaWduOiBsZWZ0 TaA9YAR3pYMmbA2vfFcu jrnfnH7dYhk+QmlydGgg ZWG5FAg9F4XoGfg0CIZm mPafMS9oqNRuDHeq Zc2huJiycBmdXY0pPRVk egwhs042KcAfz7oiIKAy fRWyZXreLUG4K87po7R2 TXQxLBEbUQQ7mQW1 lF8cuKvoalmwxKYiaQun uvStlIqxZBzpUCirK595 RUIgvOpvYcDyCVb5L7Xz Fxf1ASBgvQmsBW5w jKTrWGauAk5ouKsgqFwp LG5fOFZugqpxp051RnIe h0orLYQxfAGcPMiiBZC6 V08gf8G6TAQiGWBf IMX8lOT0rE1ptLzoihco bGVmdDsgdmVydGljYWwt SUycS442IENsmMuoIbSv zGr7T8FmOvt6SRHn uOowHQ0pzOLhEErfMn8n gJqudMreUJ2gGXJhehkh d760QnVaj4wfQDHeaMAu YSjdZXO8E07vd2P4 SKTyUVOuLWD1dGR7sE3t bGlnbjogbGVmdDsgdmVy fIwjZFlmFMfcG670XZZx cDsnPlBhdGllbnQg NFilKLd1H1LtHmjhtLK+ VB67RTLoCV40aNQuiRHw e1jfxQs3SyLiWIEjCWM2 lXcxPKfrx2IvKVSd D62qeLWpk4M3EFZwxWmr dYQgVhZytSZ2jA1qQUlq lzfuz1npwdjaGcvze7cs qg58vQ59H98eYSri ZHRoPSIzMCUiIHZhbGln ud1gxK1tTj2+PGNvbCB3 oUD1rF6gMZXkHnI9MDcp Z066SuFnvFHhNjhr n6hkk0evwXd8QsL5FUAn keJxyVeaEGB7f9KjIl67 D53aQIgjPXDfGDPbILSo KDJvkRwlsd1kgT5s Ii8+WYTkuXJ8bGZ5bQ7b MdWlYeV5CXytX029YaFj yFKtSdeuP86aU8CsxXK+ GZBeQqg7IHZawHki DG7vlSHrHAvxXa9bLHK4 BtGgWaQaGKylA1FhNEAv uvrpzretkOB6PPKoPKWy rW87Jg4rlUjdJTPc qCJHxJ0kkbdzq3jcymdr NtXpDPEmQQe1BPi5QSMe gWsaLwEjQDR3ByK4QNP4 vGJqzW7szXaludqx dE8rB8AvYAUnslsnTn33 iV2aVgRyCqI9ZIfjRgs+ H9VANydnGR1DP3pYPVce SzwvdGQ+PHRkIHN0 qKhsFJyjLAMmxD4oTCMz V2t6PaOaRlZ8CXzgI4Ag EKWlxjlkTz36hQ5oAdIm YsU2SMvsK3GgjmK9 PHVhtZLiVXtyQLN1F29n o4F3ZCXxNINfZHU2tDM1 iN5udRdmzkfpcBOlhOaz dmVydGljYWwtYWxp R177ZVJqcYdpFlUbLqU1 ThI5JrX3J6HfNud8FDNr vXzeHO4paVXhBBhyQu7r yXqpeZmtYH9fYHBi apnnRZHpsR9jHROlbKLy sEhsKS8xYJApnaoon075 BhVyKBX6LIYqsUAiC0Tp qP2eNaXeXELiQZOf L2SyzNMtIQmdK899JBml ZbV4IQTfioWzT2CoHCSn lRzhXsT4j0U3Zq55OTZJ ZWFyczwvdGQ+PHRk APH3cDxiCOukCDQodI9c MTVbY6r0IzCySuE3OCxv D6UjHVCbomwkKr89sT6w PtXeCrP4DZbnZ8Ga awL8DLNxvPFnZGzfSKN5 U45it7P9KZEgDVVvKAJ6 lDA2yZ7fnXdonkyleDSx dDsgdmVydGljYWwt IZhjU720KHYqhDvuNs8R AXG6V4CjCtm1JITucByu BK4hlPNhMRhfBd9veAwj fPncHD9jYYMwzvwo DGMtzF1dQPXfyOBgyQpz TT2aIELhczigq267QdQy EDC9VSTmrEEsC3NzjM9f NnMnOVQlKNTfB9Wj kTDiIMpuX354GKxgUfG7 DILrkdNqW9JhNYAzrTbn KtY5x2M9Ak9BAGhhrLK+ ZN51oo46Z8JaCxfg Wyz3JMTvOAI0oAP3nA9k CUWbTSdjc3S8sNJ3T6Ap sdOgds4rb3njCDVgHDmi C76nwWRyw3A0QTCx mPW3TTEtvQstPxBvyP67 Oyc+RVJmzNyoe6MtNbti v8wxw7rscKw3IfBhAJBz imVvhTzwMIA7r6Sm Zn33F67aBXzgUXPnXALg XVKuJEOhvQcwam0usW3g Ii8+YYIbpPA0qZM1eR5l KbYaDfX2NYkoF447 ShHkwSQjOxuio5yet9dy fPg3PoPiTXOqfyFgcBsj SHT5c4PpXc94X8AbvGgm a8EmPhv1ka63qPXh o4Q9fXK8M9DzHVPhlvcj wIVeeMazAP6xSVVnieng KACbsY1zQRLaC3e1GiHd WeU3NIfqN3HvxrA6 LQXorIWjKNWliMRHcY3p jttgp2mfthkfWyKsZGRb SDj8GFd6JBCylQjuXdHg ORP3SgU2EXA1oCVp lL6omOdmeddyxI5eGtw+ YUn6a5ptjMJfML5gfGH0 QI84PL53lLZpz5Z1uQC2 Y2VdNPLflprgjvjs iOB1CAXgMUMqdR27Jd1k oCgyBo7cEZElZST4RYHy ePCjX1ZapK5wYnSzHBXv TJIuR3DsgGZnGMbt O298IEtrZsA9UAPyjiRe L6PvQTTtbTilYzK6y7N1 Qu7KTV20QQ62JJ56zDHs y3O2oTI6T1SyLRCk rtsxvcunvSB3UXDrSAMj iF05Eg1yoOpePt2tPNRp ETY8QGAfjSBsJ1RwmA2j TrNjIKKtSFLfH4Rq nWCbQKqjU523TJtzUxG0 GNLgcfSlZ7TyLUZskHgi OxI9m1M4Vh2UFe97FE47 HH01pGCid8B4aXH5 M5VzXZGkfnilrroneQP2 XQAoIREveN65Hg3vdYej Be1aDCIeCJU6KGHxvXLv Y8KjsD6uQiSkIRAo VVIeX2JofJIaNDdnD160 OStbCyJ1MSMzhqFdA0Hl KPOevPfjIvV4u5U4Ju5R ZOswqgm9Y6OjOcpy dHI+NS50MRRcZQ11aVAc oNAsv8lvwIy3VcDoRUEa YPZ2rNuiHQxxk5RkPHWk F18eiCLpn3G5YDRt bGx (more content not included)... [facility] Coding Summary HTMLBase 64 KdpdcyvcIVb9xBu+PGhl YWQ+CW9RSFCqE56ahCOe zI6pC6BQENdPNyvhCRAB NLlGRcSvhwGkDU9qzUMa ZXJu IC8+ZQ8gTIXnNtjxeYYe v4W6qZT9I93oct8lOEnv jCD6IHDqZrOntleyv0qz pRu2LGauGqfxOlHu MJAooC67VDU7tF84Nv24 rKWjdDPlu5yjpLo1OiCn DJNrJPH7cCwcVAlhf1Yu GOSrH31cgAQbj6R0 IGNvbGxhcHNlOyBlbXB0 mO3zPPkvhqrir7mpeqqn Pkr0vz87iULvh8T5mKC3 V8GuytV6BKUhxDVi SjxipSOBwJ4fcmuyk2si pmsmNmJhCBGcIWr4JUa0 MCDcoQdhHvMnBA27LSD1 WZWlusUnB3AwLYXk yPadEdS7n8Z7Go0PP8GA VtztC0ACTCROYKfnbJE+ XE77wo46G5RzJlncUqk3 GCHvBQK4dDS6lY2o CILsVRdea7M1hVS3R9Xg thXayl4cl0asVKFzLScn A62whUCqh7V1AOMdpBL6 ZOEizCryRaTzeN89 Oyc+JGRtwYomf4SfIlna v9mdk3ixuYy8TnzwXCFz spZdkFbiVNC9c3HlTh0l BQVkmRR8eRW8bX1f WaBzEyX3QNxjH815RgDp fPHbWtmqC78tM8WooRA+ FSUzGwz6XLGgqVgbGR5g F2OxNYJnvcyiqQAp xNojWS4hJEOkzohgNOJt vB2gOVJyD3e9KnOsUzN4 LAuhQ1NgLWAqtvuwRl80 sS8pTtEgHsH1SKkb A4QxoyF6BNGbqFYmCPau PWX7G78mi0N2BJYdNIZy LDH7cZF5pP5wbVqiagpd bGVmdDsgdmVydGlj TRtsOKoxS281YAKneZlg PkNvZGluZyBEYXRlOiAg MDMvMTMvMjAyNDwvdGQ+ WYVvBUB9qEnwRRWg vVKsTWyxBk5wbOlrnFzq XE0zTNJtnrjgWJCrlK9p ILKpxSQrjHxqRT9uYMCs dlrqn024MhVzBAE5 CJSplQLeZ8JfcW1tMoCc RNYbIGHuI9LqoLTpUJiu B779AWasKqW0QRLdopLw W1GlTEWhfWuhIcV0 h7C7Pv5Me2EovujoN9Ug tERjCiVzAvehAIq0B6Dv PjwvdHI+XI72HSToNC78 FBf2MCU9zKwsJXuh HDHyB7QjpZ2uSpLuCRUm ZGRkOyc+PHRhYmxlIHdp ZHRoPScxMDAlJyBzdHls OQ8nVg7lOFAeSKCa vOejmWEgAqJvc8giPVQy WZwdJC7hvWgsQ8AmbNG6 GRMsh8d0Yw89S05xA9Fm dXA+JNFquFA9ePV4 tJ6xJvGvQkP7NKcjR194 JfLvgQZwEwpky9hqa4ub iTu5NbE4FRDhjoYkxDfo OLS7t2YpEl57S18c IHdpZHRoPSIxNSUiIHZh gMgbtq3opY1mDz4+PGNv xCE8mPW9nH9rHcQuKdP9 QQppO017EyYsuCEz Gqppy8bem8ecfKd3GtGs JRJluxPwgIipFUA5k6Xg Jl07K5QubVibq2BiKsz4 zm80aYBkh2E7kXE2 E3NtEVFrulxylVZghOka SV6wDIVujzhnLXFneX6f FFPtC5p1FpLgLaI2ORuh Y9CuctD4XQLcnNSc YPPrkGAMzD6pvjhqx9xc ivusJbRdICPqEZy4TTj7 QJKoyJozPqOnEOF4IkO1 VEB7pXKetB6ljRfa xubzvN9tUjh+RYF1yYPx eDTTBK8wSeodvWA+PHRk QFF6nGnmZMaaAWTwhC4x BLSsN8k3MeRmCpQ6 RLjjT1VtguP4KTFkzABg JSSqcHIXxC3uqbsqp0vf ytckNnPqBNCjPRd4GQi8 LWFsaWduOiBsZWZ0 IvJ7TUS2pCJosV6kdSsn zxbsmN4gWfs+QmlydGgg LIB2YGi1W2MwFoc7AYZl eFfsUA0pfYCnMEzp Tp6qiCqwsBmdKU1vPEBo lllvb521ObMsz4asKVPu jAFfEShrBRA8E14nh5O8 FTOhDFLkLVH0kGS0 cX2sdWivtpvbrHHgiApf dfPztKrhSXnkJUbaA052 KIRrcEadLkOiNRv9T5Iv Ywm3NTTezWsqFF6c gLHvVSwyVm3uuArjwByb BB4sQUYcesjar491WvTo p5rsWBJtfZHbKAjyRTT8 M11ji5P0OQIdQKRj BJQ0zJR8bL2krZegmhkt bGVmdDsgdmVydGljYWwt TQshD137YTUtgUocVwFp xIf2P1LjVpr2YAHl gFxqCG6yyLMsNMdnGi2x sSxbvXgyMB2hWQLydmkj p882TrNuq7vdKAQveCYn ROchJDB7H14tl8D4 KDGrCTExJWQ2lXB2pB8p bGlnbjogbGVmdDsgdmVy mUvqNJriLHwkT606PICl cDsnPlBhdGllbnQg CXouMSl6V6TjNyjrnQA+ FN53URUuPT01cPStrWTs g6iifNs1WwGsRVMzKXI6 yGbbILcyt2BmTHQt Q21tiRKfz7U1YAZbeTai fDKfSjPkrIT8jO5zGLcn pngwx7wpnqntZjenq0yy ec76bF96S08gKTjf ZHRoPSIzMCUiIHZhbGln qd3smI3lPp9+PGNvbCB3 oAA3cI0zSAXoKeV9AOrq R064VuMzkAKkOyhh j0llf4htiBz5WyZ8GITd ihOmkRcdATY1o4SsAp26 X96fJPkeAZAvBTVsEZGv KFEaqFxqft8odT5j Ii8+EHKorYS2mTF0rV6q IbZbIaT5JTovR625EkNz oWKpPsxmI10yN8YslKR+ PIGuRtf9JOTrsIah XY5seCWcPSwaXn5sDOI4 NjAfFyWnCWsaD1QmWUDb uoirmziusGB0YRLtWDHe wK91Xd8wcNskUMWx pXJGaR8tvqapm1lesnvq MjVvFJSrBNx2FKe8YXLh jPwnWmEuDMN0WjO5NQI4 xPOlmU6bdXcgnvyl wW2lA2RuELFiejczCb86 fG7gXfQbRzY9AHifCvf+ Z0ZUAopsTG8NB0kCHShe SzwvdGQ+PHRkIHN0 aSiiDAsxOBBonS6kZAUd X8s8SwTbLeF1BJqmP7Ro QFKwrdglBo45uP3gZkWf GaH2CXncP3XpyhU2 PGJjgPWmCPsgDYG5Q05x t1C9UQDlIXJkFND7kZJ4 tS2jrYueymgliYOtzNqd dmVydGljYWwtYWxp K783NUHbtCdcRjCaHeO0 UlC2CdG6R2HtIpm7JFTv mQuvRZ0woPAcFMnhEv7j cRdclAnvHE2rSLFq vdxeCIFnkD6kPQOzmNQa tOgpXU1tDEYdkmgdb972 BrPzGYF0GPUccSNyK5Uk kC6vNjZuULWmOBVd S9TghUVjPBtpW756SBvj GnS4EQUrocLhF5BiFDQr eAbbDbT0t5J0Gv42LXKR ZWFyczwvdGQ+PHRk VQC9iIfuHMioNMPclC1j LJGtY8e7GhYvSsL9GBkl P9CzYMVieqgcKa09lD1c ZrFaZuN2ZTmiU2Us asZ0FCLkmTDlXKjfPEG3 E63st8F6FQBlZPOuGVM6 lNP3nY0ulXhnkqhqkPOd dDsgdmVydGljYWwt HJeuF808JYJevJmeOw4O SQV2X8NqAdf3UXEktMum XL3nwNTqRAjpBh8gcEgb bJsoGY5jAVBewmft QDAbuV4aKSWtoUFeeMwb IX0wZGFfzvbps992PaTe THU3ZWOepUAgS2ZrgN2c YhDoNGWfFZNeD6Ww uKUlZYxhS057JAfmMbJ0 XKExbgYiU3JuKNDzaYta UvY0b5N5Qy4GYWeujNT+ FR21sc45C6CsBjaf Gez3YLJzNHY4cYO2tL2x AONpQYxhs4J6pRD6N4Th uyBdmj2ex3wdQJOwTTvz S24yiLLqs8U9LZZk tWQ8OHNmvEsxFgJkuB40 Oyc+ZGYnkArut2HmKuts t2kmp8kjfMc6QoCaCPXk baIgoNkhGAN5x5Nb Ad08G67vPBaiYSGeCIBp RPCaNHBqgHbnkx6ygG5d Ii8+BVRsuJY5xOJ5fG8j PpNfCqQ3ZUveX164 HxTweRUbUgmar4hpl6rc nLn8JnDqQXEvavPrnXbn OLG2j3BzZa01L0MkmNaa t4PuTzk6rq48dXFh n2Z2eWC5L8PyNZXjvbeu kJZbvCoqAS2kGJYyeukn SCCkcG0gJLEtK1o2DqMw GaS1KBimD8DhkuB7 CCJywPGeNVHkbGGKaE1y pxnjy0zsrqjoQuGzNRLm UZt2WWr1TLRkcZdoHtFm WRA1JvP5LLF8yMZy lJ1dxVvnsskshB4iNzf+ LFn7f8awtMLsRC8pcVY3 CT12BK80hTUdp9V9rBC1 Z6GjWPPnrvgjbxyy oIA5BGZgJWEqlU32Is3a rThsYr0tKZTtYGP6RQOn sDYbI9SunL9bBtMoMQGr PGHtI4XpnMAfSVba Z889ILviOoZ3DLNqyrBi K0TnGMXbuAgqZnK2s8T4 Uo0EAG56NU18QS27fLBs m1A9eQO1F9MhXOUc amgnjuplgGP1YLRjWNMf dK28Bm3rnVrbCh2gYJOd AAZ9EEJibHLwF8YbgH5b KoFrVYLcLRSlZ1Hv qXSjWWuvV845EVyeQfO7 YXWkglDfX1LeQTCzqXre MpD8r0X5Li5XOf53VH39 WJ96uKExo2D5rLX2 C5DfAKNsrsfdwdtfwDP0 EJVvJRIhpK55Nh5dpWoo Km0sEUGxFKT5IECywRGz P1TinN1fWsTbXMXy IKErU0OtdOZdBCeoF418 FRykUmD6RFSfgeWxI5Jp LTWcqNzuYiV5e4V1Tz3U JZcjkju1B9WqShyy dHI+EQ77FJOoQH77oVAj nJGus6kxiKy7AtYmZJLm YOM6eKblFJboe2RgVPGr P82qyWZar3M5VITb bGx (more content not included)... [facility] Wound Care Noteon 07-15-2023 Wound Care Note [id number][facility] Consent Forms [id number][facility] 07-10-2023 Outside Records [id number]#1.00OTGTIFF [facility] Coding Summaryon 07-09-2023 Coding Summary HTMLBase 64 QqhvvgnyLSd2iEg+PGhl YWQ+XZ9XPVRgP14whQOm xR6bH9MWQSyIAbioZZUW BCkQBxXcsjKgUK3yjTYd ZXJu IC8+AS4xAIZtUgxnuSLo d6Y4dNJ2Y01yak7iFDhj dOW8UJFgQrBsmhwwi2kt zXn4EWdiTwzhEjHs QUWprS96XBI0hQ00Bz95 mWLqkZNam4xggAh8FzAl BGHtOCN2nVbxCUkio4Wg WRThK96dtULwi5G7 IGNvbGxhcHNlOyBlbXB0 xN0wZDnuczmsu4esibbe Ybe3tz78rEDkg1Z8sNK7 D7NzhpC8HERhmXAb YibqdRIYoY2saksmu6om exauPbBdYOFlOGn9PBk9 VGDdtQeuOkCoSG52XCI9 XWRefpInL9CcEMVa uDkwEoJ0v1U7Ds7KN5QX IlavY4VYPHVSCQtnkDW+ CU03se52O8EyRoaxQbh1 ZOTrENO4sIH7jX0v CYLjXAzqe3C8mWZ6X1Mh hzCjhr3vh7soWWUaVCaz K53uvWFek9I1SQTrvOP3 MWQrkXinXeAngQ97 Oyc+SZOiuJdrf9NqMdyn d6ths7jmkUf0OxoeZQXp apTwjYmpYTM5q4KePb3p PLBjoTQ8eUO3iG5w FkZuFiQ4DWhdT813QgId tUKvFfvsK02uN3JfjSD+ RAGyDrz2NTSvlSxgFM4x D8VcHQDsdovnhERc rSesNB4dUHZalcezTKZq gS5uKESnU0i0VzTbItW6 TJecQ3VpQQJjswyoOx40 eP0eUmZaUnK1LVhc J2HpllE9JKSccDLuIJoj UYY0C29vs8V4BFFvQPCv ULD7qIH4nB7lcQyakesk bGVmdDsgdmVydGlj ECxbJVzfW700JNGkjDwt PkNvZGluZyBEYXRlOiAg MDMvMDUvMjAyNDwvdGQ+ WXEpNJU4kEqpQFPe fRGoSQweLl6hpCuvzPva WP9uLPEezvqrTWPdrG4l XTZjySCpySbsBX8eYLNa mhari169BvTiDFQ8 ATSakTBdV1CwkJ0uIoFt IVGkFPWnC0DckCMyGQis C712MFmqIlJ0COBjseGw E1CzWGEvnRqkWyT0 e2P8Py3Nm6LfqeomK9Rr mGSbCtPiQcuoXMn5X3Gg PjwvdHI+TB92ACWlPL20 GHw0UYV2fAldEMyx EACxQ1XwvD0dJwBqNRVy ZGRkOyc+PHRhYmxlIHdp ZHRoPScxMDAlJyBzdHls SR3uTg2bOVOkZJZb zZrjlOYlRiWio3noNTSy QLtnBG7rgWdoH7KamFX7 KYPzk7q0Kb63D89tK3Jk dXA+SDPvwCA1jRG0 vK0wZiXcUjB6LYafZ850 PfEiwVRcCrsdt6ego8jh hEz7ThM7OLAwruDlyYjy KJF3m2WlYa59H85d IHdpZHRoPSIxNSUiIHZh nVgxrq5jpM9kJi8+PGNv yKC3xLW5gZ2mAvPeFeW7 LMnlE292ZiJyrEYp Ulehe2qto4ocmPe6ZvLm JBIbfyBuvRouBQF9x5Mv Og78S5MbtLhgs4MqTfz3 tn32xTHmp7Y9nIK8 Q6HxGPExlkwmpBZrkQiy BS4qYJWgenjoBOJrmV6m HMRfU0h1CxIhTwW0HKwv F8IfcpM9DSTpyZUa VGOsbOYWzE5dkhvqt1gg ajvdNcVfCTOpXMu2DMg9 JVNylKsvDnQbGIS7QaS5 QRZ5yYYrxR3miGfw ydnpmY0nTav+LQS3nFJp pUMOWH6eQqkjpSG+PHRk YTZ1sNdtSGjuFPPqoZ0t ELAjA0k2XsYiMyX9 BRrxQ4EwcdI7KOHfwACk ENGraLHHxK2lryaqr7vu hylwOxScWRPoZCf7TIs9 LWFsaWduOiBsZWZ0 YuT2JAT7zHKhnU1beKsf oyrfnV5bVnv+QmlydGgg JUN3IKd1O3PrPef9EMDv yPqgIE3mhQPrWHib Py5roCzwgKbeDF4rWMEv nytjk175HdLga8ahCQIl gCAaYNqhMFS3S50id7P7 WBQaAUWeXUW6sUI1 qN8onBeaegoekWCkjMsh zpJtxCetJYgyOYwvW060 PRHskEjfJhLeVTs0C5Fb Lrl8UDPzoXveHV2h uCSxNUyqDd8seQgbvTap XC7fRNNzhullf599CbIy q5rdOZKfeHXvBYrhERE4 S51co9T0MYWvLIVi ZLL4pWQ8sJ9kyDtbqjvd bGVmdDsgdmVydGljYWwt HVuqH470BBSnkQyoTaBc eHl4I2JkOso9XYNl nZqcLO7ntEMdLFqjZt0k gSzzmOsvEE7vQGKztqhp o673EhZdx5hmDREoeUCx DVsjATO9D99ca4F9 SKGmBRZxKFA9tSC5kY6q bGlnbjogbGVmdDsgdmVy yDxgBBfcLHzpN492ZIHl cDsnPlBhdGllbnQg JAxzGPa0G1EpErowqTG+ ET14VAKfYI33jOCfvHJo k7anmMl3XwNiKONvZHX3 dNibQShqo3MtMPKg L61ktHWsr5P4WRSlbFdq yNNhDwFfdHL1eQ2kNJsk yhsrv4docrjcTbstc6vl uf03fJ79J28hUCcb ZHRoPSIzMCUiIHZhbGln gc2ipT8zYe8+PGNvbCB3 uUR8iT6nEGYxIqG2RLea N863ClGvoRHxNtxf y2eoc6aqlSv1IvC9ARPr wdAipFdnOOS4l1WlOe03 M14tMQglOFFfCZXaPHBj YXVstRjbpm6qtG2n Ii8+YMJziFH3wJK1oN2a JmYyQoJ1HCfeN226EvCt iSHpOlvxO29gP1JxdRD+ UFJiXbw2ZNEbhHlj FK1loXMzAPxdOh0zBMV0 ZlMmVdViTXffE6AeRYOx pvmskmwekFQ9DCVsYYWh jS42Eb5daEkpWXSf zZGXcI1okoorc9jtkklv YjGdNPUvATd0ZOh6HBOj zQhgEwYvORO9NzM7GSH2 fMQkwU4slWsrxvos vT2aW3VgMPMqzgrbNq07 wC3vLaCfKjJ3IIloDmf+ F2GIFaicRQ6ZQ8wZTHbb SzwvdGQ+PHRkIHN0 tTcuYLqmKYMhuJ7dOIPd G1g8EjFwBzN9LDevD5Lg YXBccbkxVg78zS7sObNc BjN5VJiqI7UkoyX4 GMMruVHoYMpcVAQ9D07x e9Z4SAVoEUZiKXM9rXW0 jC3fkGzwebhuvNAwoJtr dmVydGljYWwtYWxp T596LXGkqUxsKyCpJfE2 JpH7WkP4I7BqZbc1XVGx nGjyRP1iqLWdZBvnYc1z iKrlyKyiSH8mAZRh dsdhZZTlpK3yVHAbiENd sUgeKP4nQOKysptxk885 BkJtOBL2QKMzeWRjH8Zl eX6uQcEqDVYqZDEl D0MioJZmIOwqR943LUpw BtF5PQUrwnUoA8KlYCAg dQtmZsT5n7K3Ts65DTBA ZWFyczwvdGQ+PHRk XDW8qSolORaiQNAwqX3b HJMjD0l9FlNoLkK3NEwh X1OzYEYfhxpaMa71uE1j MbSrMkM6RNjmL8Wq vfR5UZTgbRNyJWmsCWH6 D67hg5X4ZWTuBCQrAYH2 tTA6xH7xcBtgarceoBPz dDsgdmVydGljYWwt ETorK583VUEcqHpdTa7Z FCE6S9HpMco5EDStmIpi OI0muGVqGNlyKn7cpOas yHwuAG4iBSVuozcn OSGukN1xEROgbMYcuJnc TE1lIASdckksx565YfKw JME0KWXncLEkS8QgdT6v GlEbLINkRECaR4Or wXSnYSxtC735TVysZdU5 MYPdniBqY8GeBJLluPco VqY4r1O0Ux5EJBgqmBG+ EI59pt56E1KgUbtg Gwh5EDDyDSM8kOA4pT5p OHPnZYwcu1H9uLC3S4Ix iqXpnx5wj3tcGTLhSVuh A42ehKXcv6F3FSGw eCV4DDGriYwpZbPnqP96 Oyc+IMLoxHxzd1UtHjld u4pdc6repZi6WwBxWJKw tjEgwOngAZI5t1Jh Lq29S88yZEpqURVdPJJi AYLnTKTjoZzmpk3gyT1w Ii8+ILZcdFY0gQV0tV3y SxWvBvR4MRerC230 EjOwmZNnZjhcl7qnv9et iMm6FaBbEIKivtXhbZis MXV2l4DiAf93L8PyjXop l9LgLyy5tl27vBGd d8F4uNY4N4AaVXZnguvv vWIckBmtNM8yIEUoivcz INJlwK1sNVHgA2j4QmBs ZrR4TLuoT2HiohF2 VMWznRWbKGUwfWMQnT7z bstxb1oirnvgKjAvPKJn CUe3WLi1DAKhfMgxVtUb ZWD4CyH8TOQ0pVVi zW4shZezyuscbG2sWes+ RNx3a2phtCEyAO2kfLB4 AV49TL24zEMln9B0nXA9 G6BiVXBycsbnimpe cDH3NWZdOPEmlA88Zm3v eRszNy4lONAkGNS0FYOm rXPpW7MsbR5pSaXyTKKy KHNeB4CgtLRxMSds N913YQevUzK4AYQavlTv B3VkUVFhdFypRmX6k7A2 Df5QGT90CS27CO38lFFv s6U4sSL9J7VjSIPc vysxohfazGT7ANAyDAAe qG43Oy1gzNgjZm9bKPYq IKB7NVHybXFhF8GkcA8i ZyOrOGGjNNKbB8Rz oDKrUPadS995RLdxTgB6 HOGjzzNqS4FtURSsvOat PqG0n6Q6Rm3SJm99RP40 RD93tCEwj2U5xMD3 E4JjJZUuoinnnkikrZF3 ZIEjRRQlzK59Mu6jmPxr Bg5iRYPvGJU9IKIgjEYw Q6NceO8mNgLhTUAo UKTtF9PmjPPrQTczV318 YSpkUwY6XKHitiRqS6Rm YBCdmSxrKxU1s0J5Wp2Q NOblfkp8K4PlOcru dHI+PA70KXXeKG83fHNi oIFyy9szkTu1UgHvYZIa NKT2tKalSEbmn1PtEVQj F47ylVCgl2A4AJHm bGx (more content not included)... [facility] Wound Care Noteon 07-08-2023 Wound Care Note [id number]# 1.00OTGTIFF [facility] Wound Cultureon 07-03-2023 Wound Culture rt [...] <=0.5/9.5 Verified Vanc S 2 Verified Normal [facility] Comment on above: Performed By: #### [id number] ####[facility] (DEFAULT)[address] [place] [address] Ambulatory Patient Summaryon 06-26-2023 Ambulatory Patient Summary [address], [address] - Visit Summary For YRN RICARDO Age: 63 years Sex: MALE : 1960 Address: [address] [place], [address] Home: Work: -- Primary Care Provider: LESLY MELCHOR MD Race: White Ethnicity: Not or Language: Bahamian Health Plan: 1?[facility], 2?[facility], 3?[facility] Reason for Visit: Three month follow [...] contact the Mental Health & Recovery Board [facility] 26/11 Crisis Hotline -Heqx 4HOPE to 672150. Follow-Up Information With: Address: When: LESLY MELCHOR MD [facility] [address] [place] [address]/ [address] [place] [address] [phone] In 3 months Future Appointments [facility] Appt. Date: 09/25/2023 1:00 PM Scheduled Provider: Lesly Melchor MD [address] [place] [address] [place], [address] Future Orders No future orders Additional Goals [...] Dosin.000 kg Body Mass Index: 50.14 kg/m2 Blum Body Weight Calculated: 84.047 kg BSA Measured: [...] TABLET BY MOUTH ONCE DAILY nebulizer machine ([facility]) 0 refills authorized Instructions: one [...] is caused (more content not included)... [facility] Patient Handouton 06-26-2023 Patient Handout [...] and keep track of them. ? Take szcc-kpn-dcbiziu and prescription medicines only as told by your health care provider. ? If you were prescribed an antibiotic medicine, take or apply it as told by your health care provider. Do not stop (more content not included)... [facility] Outside Recordson 05-15-2023 Outside Records [id number] #1.00OTGTIFF [facility] Device InterrogationOrdered By: Rosalind Murrieta on 05-14-2023 [facility] Radiology Study observation (narrative) [facility] Ambulatory Patient Summaryon 03-26-2023 Ambulatory Patient Summary [address], [address] - Visit Summary For YRN RICARDO Age: 62 years Sex: MALE : 1960 Address: [address] [place], [address] Home: Work: -- Primary Care Provider: LESLY MELCHOR MD Race: White Ethnicity: Not or Language: Bah[place]ian Health Plan: 1?[facility], 2?[facility], 3?[place] [...] alcohol and/or drug addiction problems; contact the [facility] 26/11 Crisis Hotline -Text 4HOPE to [phone]. Follow-Up Information With: Address: When: KAREN ZAPAAT, LESLY To [facility] [address] [place] [address]/ [address] [place] [id number] In 3 months Future Appointments [facility] Appt. Date: 06/26/2023 9:30 AM Scheduled Provider: Lesly Melchor MD [address] [place] [address] [place], [address] Future Orders No future orders Additional Goals [...] 3 m2 Body Mass Index: 47.09 kg/m2 Blum Body Weight Calculated: 84.047 kg BSA Measured: [...] day anxiety, 0 refills authorized nebulizer machine ([facility]) 0 refills authorized Instructions: one [...] Body mas (more content not included)... [facility] Patient Handouton 03-26-2023 Patient Handout [...] numbers. This can be done either in [place]ian ([place] or metric measurements. Note that charts and online BMI calculators are available to help you find your BMI quickly and easily without having to do these calculations yourself. To calculate your BMI in [place]ian ([place] measurements: 1. Measure your weight in [...] for Disease Control and Prevention: www.cdc.gov ? [place] Heart Association: www.heart.org ? National Heart, Lung, and Blood [place]: www.nhlbi.nih.gov Summary ? Body mass index (BMI) is a number that is calculated from a person's weight and height. ? BMI may help estimate how much of a person's weight is composed of fat. BMI can help identify those who may be at higher risk for certain medical problems. ? BMI can be measured using Bahamian measurements or metric measurements. ? BMI charts are used to identify whether you are underweight, normal weight, overweight, or obese. This information is not intended to replace advice given to you by your health care provider. Make sure you discuss any questions you have with your health care provider. Document Revised: 01/13/2020 Document Reviewed: 11/20/2019 [employer] Patient Education ? 2022 [employer]. [facility] Outside Recordson 03-25-2023 Outside Records [id number] [facility] 03-18-2023 Outside Records [id number] #[facility] 03-13-2023 Outside Records [id number] #[facility] P[facility] Glucose FingerstickOrder ed By: Serafin Shearer on 06-02-2019 Glucose [Mass/Vol] 70 mg/dL Low 75 - 110 mg/dL [employer] Phone: Interpretation and review of laboratory results Abnormal [employer] Phone: Glucose [Mass/Vol] 74 mg/dL Low 75 - 110 mg/dL [employer] Phone: Interpretation and review of laboratory results Abnormal [employer] Phone: Glucose [Mass/Vol] 64 mg/dL Low 75 - 110 mg/dL [employer] Phone: Interpretation and review of laboratory results Abnormal [employer] Phone: Surgical PathologyOrdered By : Serafin Shearer on 06-02-2019 Surgical Pathology Report [id number] [employer] [facility] ANATOMIC PATHOLOGY [address] [place] [address]. [place], [place] [address] SURGICAL PATHOLOGY CONSULTATION Patient Name: YRN RICARDO [facility] Rec: [id number] Path Number: [id number] Collected: 06/01/2019 Received: 06/01/2019 Reported: 06/02/2019 10:13 [...] with no areas of granularity or masses. [employer] sections 1cs. tm Microscopic Description Microscopic examination performed. [employer] Phone: POC Glucose FingerstickOrder ed By: Serafin Shearer on 06-01-2019 Glucose [Mass/Vol] 91 mg/dL 75 - 110 mg/dL [employer] Phone: Glucose [Mass/Vol] 96 mg/dL 75 - 110 mg/dL [employer] Phone: Surgical Pathologyon 020 Surgical Pathology (NOTE) [id number] [employer] [facility] ANATOMIC PATHOLOGY [address] [place] [address]. [place], [place] [address] SURGICAL PATHOLOGY CONSULTATION Patient Name: YRN RICARDO [facility] Rec: [id number] Path Number: [id number] Collected: 06/01/2019 Received: 06/01/2019 Reported: 06/02/2019 10:13 [...] with no areas of granularity or masses. [employer] sections 1cs. tm Microscopic Description Microscopic examination performed. [facility] Comment on above: Performed By: #### P PPVS #### [address] [address] Metal Sprayer: Karl Klein MD Nicotineon 05-23-2019 4-TA-Ochkwzmz 3 ng/mL [facility] Comment on above: Performed By: #### C SYD PT, BMP #### [facility] [address] [place] [address] Metal Sprayer: Karl Klein MD #### ANICOT #### [facility] [address] [place] [address] Metal Sprayer: Cameron Calderon MD Cotinine 5 ng/mL [facility] Comment on above: Result Comment: (NOT E) Cotinine is the major metabolite of nicotine and is a biomarker of passive exposure when present at low concentrations. This result may reflect passive exposure to a nicotine-containing product. The half-life of cotinine is approximately 16 hours. Cotinine is metabolized to 2-CD-erdieevj, which may persist for weeks after cessation from long-term or heavy use of nicotine products. Performed By: #### C SYD PT, BMP #### [facility] [address] [place] [address] Metal Sprayer: Karl Klein MD #### ANICOT #### [facility] [address] [place] [address] Metal Sprayer: Cameron Calderon MD Nicotine <2 [facility] Comment on above: Result Comment: (NOT [...] positive. Test developed and characteristics determined by [facility]. See Compliance Statement B: [employer]/ Performed by [facility], [address] [place] [id number] [email or web address], Cameron Calderon MD, Lab. Director Performed By: #### C SYD PT, BMP #### [facility] [address] [address] Metal Sprayer: Karl Klein MD #### RAVIT #### [facility] [address] [place] [address] Metal Sprayer: Cameron Calderon MD Basic Metabolic Profon 05-19 (cont.) [facility] Comment on above: Result Comment: Aver age GFR for 50-59 years old: 93 mL/min/1.73sq m Chronic Kidney Disease: <60 mL/min/1.73sq m Kidney failure: <15 mL/min/1.73sq m eGFR calculated using average adult body mass. Additional eGFR calculator available at: http://www.[employer].TripletPlus/multiple_crcl_2012.htm Performed By: #### C SYD PT, BMP #### [facility] [address] [place] [address] Metal Sprayer: Karl Klein MD #### ANICOT #### [facility] [address] [place] [address] Metal Sprayer: Cameron Calderon MD Anion gap [Moles/Vol] 14 mmol/L Normal 9-17 [place] Comment on above: Performed By: #### C BC, PT, BMP #### [address] [address] Metal Sprayer: Karl Klein MD #### ANICOT #### [facility] [address] [place], [place] [id number] Metal Sprayer: Cameron Calderon MD Calcium [Mass/Vol] 9.7 mg/dL Normal 8.6-10.4 [facility] Comment on above: Performed By: #### C BC, PT, BMP #### [address] [id number] Metal Sprayer: Karl Kelin MD #### ANICOT #### [facility] [address] [place], [place] [id number] Metal Sprayer: Cameron Calderon MD Chloride [Moles/Vol] 98 mmol/L Normal 98-107 [facility] Comment on above: Performed By: #### C BC, PT, BMP #### [address] [id number] Metal Sprayer: Karl Klein MD #### ANICOT #### [facility] [address] [place], [place] [id number] Metal Sprayer: Cameron Calderon MD CO2 [Moles/Vol] 25 mmol/L Normal 20-31 [facility] Comment on above: Performed By: #### C BC, PT, BMP #### [address] [address] Metal Sprayer: Karl Klein MD #### ANICOT #### [facility] [address] [place], [place] [id number] Metal Sprayer: Cameron Calderon MD Creatinine [Mass/Vol] 1.28 mg/dL High 0.70-1.20 [place] Comment on above: Performed By: #### C BC, PT, BMP #### [address] [address] Metal Sprayer: Karl Klein MD #### ANICOT #### [facility] [address] [place], [place] [id number] Metal Sprayer: Cameron Calderon MD GFR, Amer >60 Normal >60 [facility] Comment on above: Performed By: #### C SYD, PT, BMP #### [facility] [address] [place] [address] Metal Sprayer: Karl Klein MD #### ANICOT #### [facility] [address] [place] [address] Metal Sprayer: Cameron Calderon MD GFR,non Amer 58 mL/min Low >60 [facility] Comment on above: Performed By: #### Kenrick VELARDE, PT, BMP #### [address] [address] Metal Sprayer: Karl Klein MD #### ANICOT #### [facility] [address] [place] [address] Metal Sprayer: Cameron Calderon MD Glucose [Mass/Vol] 80 mg/dL Normal 70-99 [facility] Comment on above: Performed By: #### Kenrick VELARDE, PT, BMP #### [address] [address] Metal Sprayer: Karl Klein MD #### ANICOT #### [facility] [address] [place] [address] Metal Sprayer: Cameron Calderon MD Potassium [Moles/Vol] 4.6 mmol/L Normal 3.7-5.3 [place] Comment on above: Performed By: #### C YSD, PT, BMP #### [address] [address] Metal Sprayer: Karl Klein MD #### ANICOT #### [facility] [address] [place], [place] [id number] Metal Sprayer: Cameron Calderon MD Sodium [Moles/Vol] 137 mmol/L Normal 135-144 [facility] Comment on above: Performed By: #### C BC, PT, BMP #### [facility] [address] [place] [address] [id number] Metal Sprayer: Karl Klein MD #### ANICOT #### [facility] [address] [place], [place] [id number] Metal Sprayer: Cameron Calderon MD Urea nitrogen [Mass/Vol] 23 mg/dL High -20 [facility] Comment on above: Performed By: #### C BC, PT, BMP #### [facility] [address] [place] [address] Metal Sprayer: Karl Klein MD #### ANICOT #### [facility] [address] [place], [place] [id number] Metal Sprayer: Cameron Calderon MD BUN/CRE Ratio NOT REPORTED Normal -20 [facility] Comment on above: Performed By: #### C BC, PT, BMP #### [address] [address] Metal Sprayer: Karl Klein MD #### ANICOT #### [facility] [address] [place], [place] [id number] Metal Sprayer: Cameron Calderon MD Staging: NOT REPORTED Normal [facility] Comment on above: Performed By: #### C BC, PT, BMP #### [facility] [address] [place] [address] Metal Sprayer: Karl Klein MD #### ANICOT #### [facility] [address] [place], [place] [id number] Metal Sprayer: Cameron Calderon [facility] Erythrocyte distribution width (RBC) [Ratio] 16.0 % High 11.8-14.4 [facility] Comment on above: Performed By: #### C BC, PT, BMP #### [address] [address] Metal Sprayer: Karl Klein MD #### ANICOT #### [facility] [address] [place], [place] [id number] Metal Sprayer: Cameron Calderon MD Hematocrit (Bld) [Volume fraction] 42.0 % Normal 40.7-50.3 [facility] Comment on above: Performed By: #### C BC, PT, BMP #### [address] [id number] Metal Sprayer: Karl Klein MD #### ANICOT #### [facility] [address] [place], [place] [id number] Metal Sprayer: Cameron Calderon MD Hemoglobin (Bld) [Mass/Vol] 13.2 g/dL Normal 13.0-17.0 [facility] Comment on above: Performed By: #### C BC, PT, BMP #### [address] [id number] Metal Sprayer: Karl Klein MD #### ANICOT #### [facility] [address] [place], [place] [id number] Metal Sprayer: Cameron Calderon MD MCH (RBC) [Entitic mass] 28.4 pg Normal 25.2-33.5 [facility] Comment on above: Performed By: #### C BC, PT, BMP #### [address] [address] Metal Sprayer: Karl Klein MD #### ANICOT #### [facility] [address] [place] [address] Metal Sprayer: Cameron Calderon MD MCHC (RBC) [Mass/Vol] 31.4 g/dL Normal 28.4-34.8 [place] Comment on above: Performed By: #### C BC, PT, BMP #### [address] [id number] Metal Sprayer: Karl Klein MD #### ANICOT #### [facility] [address] [place] [address] Metal Sprayer: Cameron Calderon MD MCV (RBC) [Entitic vol] 90.3 fL Normal 82.6-102.9 [facility] Comment on above: Performed By: #### C BC, PT, BMP #### [address] [address] Metal Sprayer: Karl Klein MD #### ANICOT #### [address] [id number] Metal Sprayer: Cameron Calderon MD NRBC Automated 0.0 per 100 WBC Normal 0.0 [facility] Comment on above: Performed By: #### C BC, PT, BMP #### [address] [id number] Metal Sprayer: Karl Klein MD #### ANICOT #### [facility] [address] [place], [place] [id number] Metal Sprayer: Cameron Calderon MD Platelet mean volume (Bld) [Entitic vol] 9.8 fL Normal 8.1-13.5 [facility] Comment on above: Performed By: #### C BC, PT, BMP #### [address] [address] Metal Sprayer: Karl Klein MD #### ANICOT #### [address] [place] [address] Metal Sprayer: Cameron Calderon MD Platelets (Bld) [#/Vol] 199 10*3/uL Normal 138-453 [facility] Comment on above: Performed By: #### C BC, PT, BMP #### [address] [address] Metal Sprayer: Karl Klein MD #### ANICOT #### [facility] [address] [place] [address] Metal Sprayer: Cameron Calderon MD RBC (Bld) [#/Vol] 4.65 10*6/uL Normal 4.21-5.77 [facility] Comment on above: Performed By: #### C BC, PT, BMP #### [address] [id number] Metal Sprayer: Karl Klein MD #### ANICOT #### [facility] [address] [place] [address] Metal Sprayer: Cameron Calderon MD WBC (Bld) [#/Vol] 6.7 10*3/uL Normal 3.5-11.3 [facility] Comment on above: Performed By: #### C BC, PT, BMP #### [place] [address] Metal Sprayer: Karl Klein MD #### ANICOT #### [facility] [address] [place] [address] Metal Sprayer: Cameron Calderon MD PTon 05-19-2019 INR Coag (PPP) [Relative time] 1.1 {INR} Normal [facility] Comment on above: Result Comment: Therapeutic Range: Moderate Anticoagulant Intensity: INR = 2.0-3.0 High Anticoagulant Intensity: INR = 2.5-3.5 Performed By: #### C BC, PT, BMP #### [address] [place] [address] Metal Sprayer: Karl Klein MD #### ANICOT #### [facility] [address] [place] [address] Metal Sprayer: Cameron Calderon MD PT Coag (PPP) [Time] 12.0 s Normal 9.0-12.0 [facility] Comment on above: Performed By: #### C BC, PT, BMP #### [facility] [address] [place] [address] Metal Sprayer: Karl Klein MD #### ANJARETT #### [facility] [address] [place] [address] Metal Sprayer: Cameron Calderon MD XR CHEST (2 VW)on [...] Shawanda Aragon MD 05/19/19 Final result Normal [facility] XR CHEST STANDARD (2 VW)Orde red By: Serafin Shearer on 05-19-2019 Negative chest. [facility] Work Phone: EXAMINATION: TWO XRAY VIEWS OF THE CHEST 05/19/2019 11:41 am COMPARISON: None. HISTORY: ORDERING SYSTEM PROVIDED HISTORY: preop sleeve gastrectomy Reason for Exam: Preop 06/01/19. no chest complaints Type of Exam: Initial FINDINGS: The lungs are without acute focal process. No effusion or pneumothorax. The cardiomediastinal silhouette is normal. The osseous structures are intact without acute process. [facility] Work Phone: Car, Mhpn Incoming Radiant Results From [facility] - 05/19/2019 11:50 AM EST EXAMINATION: TWO [...] intact without acute process. IMPRESSION: Negative chest. 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 Work Phone: [employer] 05-14-2023 11:28-0500 Body mass index (BMI) [Ratio] 48.25 kg/m2 Olafkathy Zimmermanopher MAT P[employer]EDIT CARD COLLECTION CLERK Work Phone: [employer] 05-14-2023 11:28-0500 Body weight 175.09 kg Olafkathy Caraballoistophe r MAT P[employer]EDIT CARD COLLECTION CLERK Work Phone: [employer] 05-14-2023 11:28-0500 Diastolic blood pressure 80 mm[Hg] Olafkathy Zimmermanopher MAT P[employer]EDIT CARD COLLECTION CLERK Work Phone: [employer] 05-14-2023 11:28-0500 Heart rate 61 /min Olaf Sheae r [employer] P[employer] CARD COLLECTION CLERK Work Phone: [employer] 05-14-2023 11:28-0500 SaO2% (BldA) [Mass fraction] 95 % Olaf Decistopher MAT P[employer]EDIT CARD COLLECTION CLERK Work Phone: [employer] 05-14-2023 11:28-0500 Systolic blood pressure 116 mm[Hg] Olafkathy Zimmermanopher MAT P[employer]EDIT CARD COLLECTION CLERK Work Phone: [employer] 06-02-2019 07:15-0500 Body temperature 99.3 [degF] Serafin Shearer MD Work Phone: [facility] Work Phone: 06-02-2019 07:15-0500 Diastolic blood pressure 59 mm[Hg] Serafin Shearer MD Work Phone: [facility] Work Phone: 06-02-2019 07:15-0500 Heart rate 62 /min Serafin Shearer MD Work Phone: [facility] Work Phone: 06-02-2019 07:15-0500 Respiratory rate 16 /min Serafin Shearer MD Work Phone: [employer] Work Phone: 06-02-2019 07:15-0500 SaO2% (BldA) [Mass fraction] 95 % Serafin Shearer MD Work Phone: [employer] Work Phone: 06-02-2019 07:15-0500 Systolic blood pressure 116 mm[Hg] Serafin Shearer MD Work Phone: [facility] Work Phone: 06-01-2019 09:10-0500 Body height 190.5 cm Serafin Shearer MD Work Phone: [facility] Work Phone: 06-01-2019 09:10-0500 Body mass index (BMI) [Ratio] 53.24 kg/m2 Searfin Shearer MD Work Phone: [facility] Work Phone: 06-01-2019 09:10-0500 Body weight 193.2 kg Serafin Shearer MD Work Phone: [employer] Work Phone: Encounters Encounter Date Encounter Type Care Provider Facility Start: 02-14-2024 End: 02-14-2024 ambulatory LESLY MELCHOR MD Facility:[facility] Start: 02-08-2024 End: 02-09-2024 Emergency department patient visit Yrn Quan Facility:[facility] Start: 01-07-2024 ambulatory Melo Reno acility:[facility] Start: 12-24-2023 End: 12-24-2023 ambulatory LESLY MELCHOR MD Facility:[facility] Start: 12-11-2023 End: 12-11-2023 ambulatory Veda Barnhart Facility:[facility] Start: 11-22-2023 End: 11-22-2023 ambulatory Srinivas R Dolce Facility:[facility] Start: 11-15-2023 End: 11-15-2023 ambulatory Srinivas R Dolce Facility:[facility] Start: 10-25-2023 End: 10-25-2023 ambulatory Srinivas R Dolce Facility:[facility] Start: 10-17-2023 End: 10-17-2023 ambulatory PA Kelley Redmond Facility:[facility] Start: 10-10-2023 End: 10-10-2023 ambulatory PA Kelley Redmond Facility:[facility] Start: 10-04-2023 ambulatory Srinivas R Dolce Facility :[facility] Start: 10-02-2023 ambulatory Srinivas R Dolce Facility :[facility] Start: 09-26-2023 End: 09-26-2023 ambulatory PA Kelley Redmond Facility:[facility] Start: 09-25-2023 End: 09-25-2023 ambulatory LESLY MELCHOR MD Facility:[facility] Start: 09-16-2023 End: 09-16-2023 ambulatory Srinivas R Dolce Facility:[facility] Start: 09-10-2023 End: 09-10-2023 ambulatory PA Kelley Redmond Facility:[facility] Start: 09-02-2023 End: 09-02-2023 ambulatory Srinivas R Dolce Facility:[facility] Start: 08-26-2023 End: 08-26-2023 ambulatory Srinivas R Dolce Facility:[facility] Start: 08-19-2023 End: 08-19-2023 ambulatory Srinivas R Dolce Facility:[facility] Start: 08-15-2023 End: 08-15-2023 ambulatory PA Kelley Redmond Facility:[facility] Start: 08-08-2023 End: 08-08-2023 ambulatory PA Kelley Redmond Facility:[facility] Start: 08-01-2023 End: 08-01-2023 ambulatory PA Kelley Redmond Facility:[facility] Start: 07-26-2023 End: 07-26-2023 ambulatory Srinivas R Dolce Facility:[facility] Start: 07-24-2023 End: 07-24-2023 ambulatory Srinivas R Dolce Facility:[facility] Start: 07-24-2023 End: 07-24-2023 ambulatory Srinivas R Dolce Facility:[facility] Start: 07-19-2023 End: 07-19-2023 ambulatory LESLY MELCHOR MD Facility:[facility] Start: 07-19-2023 End: 07-19-2023 ambulatory Srinivas R Dolce Facility:[facility] Start: 07-15-2023 End: 07-15-2023 ambulatory Srinivas R Dolce Facility:[facility] Start: 07-12-2023 End: 07-12-2023 ambulatory Srinivas R Dolce Facility:[facility] Start: 07-10-2023 End: 07-10-2023 ambulatory Srinivas R Dolce Facility:[facility] Start: 07-05-2023 End: 07-05-2023 ambulatory Srinivas R Dolce Facility:[facility] Start: 07-01-2023 End: 07-01-2023 ambulatory Srinivas R Dolce Facility:[facility] Start: 06-26-2023 End: 06-26-2023 ambulatory LESLY MELCHOR MD Facility:[facility] Start: 05-14-2023 End: 05-14-2023 Office outpatient visit 15 minutes Olaf GOOD Work Phone: [facility] Comment on above: Cardiac pacemaker (P rimary Dx); Morbid obesity with BMI of 40.0-44.9, adult ([facility]); Complete heart block ([facility]) Start: 05-14-2023 End: 05-14-2023 Clinical Support Ppc Pacer [facility] Comment on above: Cardiac pacemaker (P rimary Dx) Start: 03-26-2023 End: 03-26-2023 ambulatory LESLY MELCHOR MD Facility:[facility] Start: 02-10-2021 End: 02-11-20[address] [facility] [facility] Start: 02-10-2021 End: 02-10-2021 Subsequent hospital visit by physician [facility] Comment on above: History of pulmonary embolism; Hx of deep venous thrombosis Start: 06-01-2019 End: 06-02-2019 Evaluation and management of inpatient SERAFIN SHEARER [facility] Start: 06-01-2019 End: 06-02-2019 Evaluation and management of inpatient Serafin Shearer MD Work Phone: [address] Ortho/Med Surg Comment on above: S/P laparoscopic sle ramon gastrectomy (Primary Dx) Start: 05-19-2019 End: 2019 Patient encounter procedure SERAFIN SHEARER [facility] Start: 05-19-2019 End: 05-21-2019 Subsequent hospital visit by physician Christian 2 [facility] Comment on above: Arrived Procedures [...] SERAFIN SHEARER Start: 06-01-2019 DIET NPO, NOW SERAIFN PRIYANKA Start: 06-01-2019 FULL CODE SERAFIN SHEARER [...] 06-01-2019 Level iv surg pathology gross&microscopic exam SERFAIN SHEARER Start: 06-01-2019 End: 06-01-2019 Laps gstrc [...] years Vaccine (2 of 2 - PPSV23) [employer] Phone: Start: 12-30-2025 Lipid panel Lipid screen [facility] Phone: Start: 05-14-2024 Adult BMI Screening [facility] Start: 05-14-2024 Tobacco Screening Tobacco [facility]ening [facility] Start: 07-30-2023 [facility]: Start: 12-30-2021 Creatinine measurement Creatinine mo nitoring [employer] Phone: Start: 12-30-2021 Potassium monitoring Potassium monit oring [employer] Phone: Start: 12-30-2021 Thyroid stimulating hormone measurement TSH testing [employer] Phone: Start: 08-29-2021 End: 08-29-2021 Patient encounter procedure 08/29/2021 Office Visit Oncology Consuelo Delgadillo MD [address] [place], [place] [id number] [facility] Start: 03-24-2021 End: 03-24-2021 Patient encounter procedure 03/24/2021 Office Visit Pulmonology Teddy Fam MD [address] [id number] [facility] Start: 02-14-2021 End: 02-14-2021 Patient encounter procedure 02/14/2021 Office Visit Bariatrics Mary Lou Power, MAT PACKER [address] [place] [id number] [facility] Start: 01-04-2021 Influenza vaccination Flu vaccine (# 1) [facility] Phone: Start: 05-19-2020 Creatinine monitoring Creatinine mon itoring [facility] [employer] Phone: Start: 05-19-2020 Potassium monitoring Potassium monit oring [facility] [employer] Phone: Start: 07-30-2019 TSH testing TSH testing [facility] [employer] Phone: Start: 06-12-2019 End: 06-12-2019 Patient encounter procedure 06/12/2019 Office Visit Pulmonology Teddy Fam MD [address] [id number] [facility] Start: 06-09-2019 End: 06-09-2019 Patient encounter procedure 06/09/2019 Office Visit Bariatrics Serafin Shearer MD [address] [place] [address] [facility]ric [facility]urg Start: 06-01-2019 End: 06-01-2019 Admission to same day surgery center 06/01/2019 Surgery IP Unit Serafin Shearer MD [address] [place] [address] XI ROBOTIC LAPAROSCOPIC GASTRECTOMY SLEEVE, ENDOSEAL [facility] Comment on above: XI ROBOTIC LAPAROSCO PIC GASTRECTOMY SLEEVE, ENDOSEAL Start: 06-01-2019 Subsequent hospital visit by physician 06/01/2019 Hospital Encounter IP Unit Serafin Shearer MD [address] [place] [address] [facility] Start: 03-06-2019 Annual Wellness Visi t (AWV) Annual Wellness Visit (AWV) [facility] Phone: Start: 2012 Administration of varicella zoster vaccine Zoster (Shingles) Vaccine (1 of 2) [employer] Start: 2012 Colon cancer screen colonoscopy Colon cancer screen colonoscopy [employer] Phone: Start: 2012 Shingles Vaccine (1 of 2) Shingles Vaccine (1 of 2) [employer] Phone: Start: 2007 Screening for malign ant neoplasm of colon Colon cancer screen colonoscopy [employer] Phone: Start: 1981 DTaP,Tdap and Td Vaccines (1 - Tdap) DTaP,Tdap and Td Vaccines (1 - Tdap) [facility] Start: 1981 DTaP/Tdap/Td vaccine (1 - Tdap) DTaP/Tdap/Td vaccine (1 - Tdap) [employer] Phone: Start: 1980 Adult BMI Follow Up Plan Adult BMI Follow Up Plan [facility] Start: 1977 HIV screen HIV screen [employer] [facility] Work Phone: Start: 1977 HIV screening HIV screen [employer] [facility] Work Phone: Start: 1974 Depression Screening Depression Scre ening [facility] Start: 1973 DTaP/Tdap/Td vaccine (1 - Tdap) DTaP/Tdap/Td vaccine (1 - Tdap) [employer] Phone: Start: 1962 Hepatitis C screen Hepatitis C scree n [employer] Phone: Start: 1962 Hepatitis C screening Hepatitis C sc reen [employer] Phone: Start: 1962 Tobacco Counseling Tobacco Counselin g [facility] Home BIPAP or CPAP Home BIPAP or CPAP Respiratory Care Routine Daily until discontinued starting 06/01/2019 [employer] Phone: Comment on above: Daily until disconti nued starting 06/01/2019 Initiate Oxygen Ther apy Protocol Initiate Oxygen Therapy Protocol Respiratory Care Routine Daily until discontinued starting 06/01/2019 [employer] Phone: Comment on above: Daily until disconti nued starting 06/01/2019 Surgical Pathology Surgical Path ology Lab Routine ONE TIME for 1 Occurrences starting 06/01/2019 [employer] Phone: Comment on above: ONE TIME for 1 Occur rences starting 06/01/2019 Immunizations Immunization Date Immunization Notes Care Provider Bhavna lynch 12-16-2013 pneumococcal polysaccharide vaccine, 23 valent Stv 2 [facility] [employer] Payers Date Payer Category Payer Self-pay 2019 Unknown DAKOTA W[employer] D UAL BENEFITS [employer] W[employer] DUAL xxxxxxxxxxx 2019-Present [address] [place] [phone] xxxxxxxxxxx [id number] 2018 Medicaid [place] [employer] [facility] [id number] 2018-Present [phone] [address] [place] [address] [id number] 2018 Medicaid [id number] 2018 Medicare [place] [facility] [id number] 2018-Present [phone] [address] [place] [address] [id number] 2018 Unknown [id number] 1962 Unknown [id number] 2.16.840.1.062738.3.579.2.175 1962 Unknown [id number] 2.16.840.1.789676.3.579.2.175 1962 Unknown [id number] 2.16.840.1.140132.3.579.2.175 1962 Unknown [id number] 2.16.840.1.153636.3.579.2.176 1962 Unknown [id number] 2.16.840.1.525048.3.579.2.1286 1962 Unknown [id number] 2.16.840.1.676627.3.579.2.1286 1962 Unknown [id number] 2.16.840.1.659610.3.579.2. 1962 Unknown [id number] 2.16.840.1.220718.3.579.2. 1962 Unknown [id number] 2.16.840.1.091218.3.579.2. 1962 Unknown [id number] 2.16.840.1.620618.3.579.2. 1962 Unknown [id number] 2.16.840.1.954813.3.579.2. 1962 Unknown [id number] 2.16.840.1.895189.3.579.2. 1962 Unknown [id number] 2.16.840.1.959238.3.579.2. 1962 Unknown [id number] 2.16.840.1.175693.3.579.2. 1962 Unknown [id number] 2.16.840.1.183171.3.579.2. 1962 Unknown [id number] 2.16.840.1.895228.3.579.2. 1962 Unknown [id number] 2.16.840.1.528213.3.579.2. 1962 Unknown [id number] 2.16.840.1.836386.3.579.2. 1962 Unknown [id number] 2.16.840.1.038407.3.579.2. 1962 Unknown [id number] 2.16.840.1.982612.3.579.2. 1962 Unknown [id number] 2.16.840.1.433215.3.579.2. 1962 Unknown [id number] 2.16.840.1.553965.3.579.2. 1962 Unknown [id number] 2.16.840.1.029802.3.579.2. 1962 Unknown [id number] 2.16.840.1.579501.3.579.2. 1962 Unknown [id number] 2.16.840.1.358312.3.579.2. 1962 Unknown [id number] 2.16.840.1.507511.3.579.2. 1962 Unknown [id number] 2.16.840.1.457052.3.579.2. 1962 Unknown [id number] 2.16.840.1.198695.3.579.2. 1962 Unknown [id number] 2.16.840.1.817363.3.579.2. 1962 Unknown [id number] 2.16.840.1.778160.3.579.2. 1962 Unknown [id number] 2.16.840.1.643123.3.579.2. 1962 Unknown [id number] 2.16.840.1.913172.3.579.2. 1962 Unknown [id number] 2.16.840.1.958461.3.579.2. 1962 Unknown [id number] 2.16.840.1.162979.3.579.2. 1962 Unknown [id number] 2.16.840.1.410032.3.579.2. 1962 Unknown [id number] 2.16.840.1.479841.3.579.2. 1962 Unknown [id number] 2.16.840.1.027222.3.579.2. 1962 Unknown [id number] 2.16.840.1.359385.3.579.2. 1962 Unknown [id number] 2.16.840.1.890093.3.579.2. 1962 Unknown [id number] 2.16.840.1.992871.3.579.2. 1962 Unknown [id number] 2.16.840.1.389256.3.579.2. 1962 Unknown [id number] 2.16.840.1.484912.3.579.2. 1962 Unknown [id number] 2.16.840.1.523703.3.579.2. 1962 Unknown [id number] 2.16.840.1.558610.3.579.2. 1962 Unknown [id number] 2.16.840.1.130519.3.579.2. Unknown [id number] 2.16.840.1.586470.3.579.2.531 Social History Date Type Detail Facility Start: 02-08-2021 End: 04-18-2022 Tobacco smoking status [facility] Never smoker [facility] Start: 02-08-2021 Tobacco use and exposure Former user [employer] Phone: End: 01-17-2021 History of tobacco use Chews Tobacco [employer] Phone: Start: 02-08-2021 End: 05-14-2023 Alcohol intake Ex-drinker (finding) [employer] Phone: Start: 07-25-2018 History SDOH Alcohol Frequency 1 Krystin [employer] Work Phone: Start: 1960 Sex Assigned At Not on file M eve [employer] Work Phone: Start: 04-18-2022 Tobacco use and exposure [facility] smokeless tobacco [facility] Start: 06-16-2020 End: 05-14-2023 History of Social function [facility] Start: 06-16-2020 End: 05-14-2023 Tobacco use panel [facility] Instability Unknown [facility] Medical Equipment Procedure Code Equipment Code Equipment Origin al Text Equipment Identifier Dates Ld Pcng Ingevity + 52cm Mri - [id number] - [id number] Start: 08-25-2020 Cardiac pacemaker, device (physical object) ([id number]) Pcmkr Accolade Mri Dr Cade - [id number] - [id number] Start: 08-25-2020 Goals Date Patient Goal Desired Activity /State Personal health goal Comment on above: Formatting of this n ote might be different from the original. Evaluation of progress towards goal: home self care Clinical Notes 06-02-2019 to 12-17-2023 [facility] 05/14/2023 11:30 AM Juanita Hopper MD - 05/14/2023 11:00 AM Starr Sanon RN - 06/02/2019 7:24 AM Serafin Jesus MD - 06/02/2019 6:43 AM EST Note Date & Type Note Facility 12-17-2023 Note Entered by Yousuf Pierce CMA on December 17, 2023 09:09:22 EDT From: Ana Pierce CMA To: [facility] Sent: 12/17/2023 09:09:22 EDT Subject: Medication Management Approved with modifications: Durable Medical Equipment for Prescription (CETIRIZINE 10MG TAB 10 Tablet) TAKE 1 TABLET BY MOUTH EVERY DAY Qty: 30 tab(s) Days Supply: 30 Refills: 10 Substitutions Allowed Route To Pharmacy - [facility] Signed by Ana Pierce CMA --------- From: [facility] To: KAREN ZAPATA, LESLY To [...] 10 Substitutions Allowed Notes from Pharmacy: --------- [facility] 11-18-2023 Note Entered by Yousuf Pierce CMA on November 18, 2023 07:43:49 EDT From: Ana Pierce CMA To: [facility] Sent: 11/18/2023 07:43:49 EDT Subject: Medication Management Submitted: Complete:rivaroxaban (Xarelto 20 mg oral tablet) Signed by Ana Pierce CMA 11/18/2023 07:43:00 EDT Approved with modifications: rivaroxaban (XARELTO 20 MG TABLET 20 Tablet) TAKE 1 TABLET BY MOUTH IN THE EVENING WITH MEALS Qty: 30 tab(s) Days Supply: 30 Refills: 10 Substitutions Allowed Route To Pharmacy - [facility] Signed by Ana Pierce CMA Patient matched by Ana Pierce CMA on 11/18/2023 07:43:20 EDT --------- From: [facility] To: KAREN ZAPTAA, LESLY To MD Sent: November 15, 2023 5:11:03 PM CDT Subject: Medication Management Due: November 16, 2023 12:10:53 AM CDT On Hold Pending Signature Dispensed Drug: rivaroxaban (Xarelto 20 mg oral tablet), TAKE 1 TABLET BY MOUTH IN THE EVENING WITH MEALS Quantity: 30 tab(s) Days Supply: 30 Refills: 10 Substitutions Allowed Notes from Pharmacy: --------- [facility] 10-17-2023 Note Entered by Yousuf Pierce on October 17, 2023 07:43:22 EDT From: Ana Pierce To: [facility] Sent: 10/17/2023 07:43:22 EDT Subject: Medication Management Submitted: Complete:levothyroxine (levothyroxine 150 mcg (0.15 mg) oral tablet) Signed by Ana Pierce 10/17/2023 07:43:00 EDT Approved with modifications: levothyroxine (LEVOTHYROXINE 150MCG TAB 150 Tablet) TAKE 1 TABLET BY MOUTH ONCE DAILY Qty: 30 tab(s) Days Supply: 30 Refills: 10 Substitutions Allowed Route To Pharmacy - [facility] [place] Signed by Ana Pierce --------- From: [facility] To: KAREN ZAPATA, LESLY To [...] 10 Substitutions Allowed Notes from Pharmacy: --------- [facility] 07-24-2023 Note CLINICAL DATA: Venou [...] Signature): Romulo Wright 07/24/23 10:38 a Technologist: [facility] 07-08-2023 Note Entered by Yousuf Pierce on July 08, 2023 07:59:35 EST From: Ana Pierce [facility] Sent: 07/08/2023 07:59:35 EST Subject: Medication Management Not Approved: now on pulmicort fluticasone (FLUTICASONE PROP HFA 110MCG 110 Aerosol) INHALE 2 PUFFS BY MOUTH TWICE DAILY *RINSE MOUTH AFTER USE* Qty: 12 gm Days Supply: 30 Refills: 10 Substitutions Allowed [facility] Signed by Ana Pierce --------- From: [facility] To: KAREN ZAPATA, LESLY To MD Sent: July 05, 2023 4:32:01 PM TWILL CUTTER Subject: Medication Management Due: July 06, 2023 12:09:30 AM TWILL CUTTER On Hold Pending Signature Drug: fluticasone (Flovent [...] 10 Substitutions Allowed Notes from Pharmacy: --------- [facility] 05-28-2023 Note Entered by Yousuf Pierce on May 28, 2023 07:49:21 EST From: Ana Pierce To: [facility] Sent: 05/28/2023 07:49:21 EST Subject: Medication Management Submitted: Complete:oxyBUTYnin (oxybutynin 10 mg/24 hr oral tablet, extended release) Signed by Ana Pierce 05/28/2023 07:49:00 EST Approved with modifications: oxyBUTYnin (OXYBUTYNIN ER 10MG TAB 10 Tablet) TAKE 1 TABLET BY MOUTH DAILY Qty: 30 tab(s) Days Supply: 30 Refills: 10 Substitutions Allowed Route To Pharmacy - [facility] Signed by Ana Pierce --------- From: [facility] To: KAREN ZAPATA, LESLY To MD Sent: May 27, 2023 5:22:40 PM TWILL CUTTER Subject: Medication Management Due: May 28, 2023 12:05:03 AM TWILL CUTTER On Hold Pending Signature Drug: oxyBUTYnin (oxybutynin 10 mg/24 hr oral tablet, extended release), 1 tab(s) PO Daily Quantity: 30 tab(s) Days Supply: 0 Refills: 10 Substitutions Allowed Notes from Pharmacy: Dispensed Drug: oxyBUTYnin (oxybutynin 10 mg/24 hr oral tablet, extended release), TAKE 1 TABLET BY MOUTH DAILY Quantity: 30 tab(s) Days Supply: 30 Refills: 10 Substitutions Allowed Notes from Pharmacy: --------- [facility] 05-14-2023 History of Present illness Narrative Yrn Danny Ricardo Date of visit: 05/14/2023 Date of : 1960 Age: 62 y.o. Patient Active Problem List Diagnosis Complete heart block ([facility]) Abnormal stress test Cardiac pacemaker Morbid [...] PE, chronic lymphedema, complete heart block s/p [employer] dual-chamber pacemaker implanted 2020. He is here today for routine evaluation. Patient states he has been doing well since last office visit. He denies chest pain, shortness of breath, palpitations, fatigue. Patient enjoys fishing with his grandson. Past Medical History: Diagnosis Date Anxiety COPD (chronic obstructive pulmonary disease) ([facility]) Depression Hypertension Hypothyroidism Sleep apnea No data recorded No data recorded No data recorded Past Surgical History: Procedure Laterality Date Cardiac catheterization N/A 08/23/2020 Performed by Brian Hilario MD at [facility] Coronary angiogram and left ventricular gram/pressure N/A 08/23/2020 Performed by Brian Hilario MD at [facility]ATH [facility] EP - Device-PPM Left 08/25/2020 Performed by Alexander Hopper MD at [facility] (EP) HAND RECONSTRUCTION Left SLEEVE GASTROPLASTY 05/2019 [...] with BMI of 40.0-44.9, adult ([facility]) 3. Complete heart block ([facility]) Intermittent complete heart block s/p [employer] dual-chamber pacemaker implanted 2020 Device check [...] MELCHOR MD Referring Physician: Lesly Melchor MD [address] [place] [address] LATISHA Harman 05/14/23 1202 documented in this encounter [facility] 05-14-2023 History of Present illness Narrative I agree with the findings in the scanned document. documented in this encounter [facility] 06-02-2019 History of Present illness [...] NICHOLS 1:03 PM documented in this encounter [employer] Phone: Evaluation note Diagnosis History of pulmonary embolism Personal history of pulmonary embolism Hx of deep venous thrombosis Personal history of venous thrombosis and embolism documented in this encounter [employer] Phone: evaluation note* Diagnosis S/P laparoscopic sleeve gastrectomy- Primary documented in this encounter [employer] Phone: evaluation note* Diagnosis Cardiac pacemaker- Primary Cardiac pacemaker in situ Morbid obesity with BMI of 40.0-44.9, adult ([facility]) Complete heart block ([facility]) Atrioventricular block, complete documented in this encounter [employer] note* Diagnosis Cardiac pacemaker- Primary Cardiac pacemaker in situ documented in this encounter [facility] Discharge instructions* Instructions* Stewart Golden DO - 06/02/2019 Discharge Instructions for Bariatric Surgery You had a Laparoscopic Sleeve Gastrectomy (02339) to treat obesity. Recovery from this surgery [...] scheduled appointment, please call the office at [phone]. Call Your Doctor If Any of the [...] sent through Care Everywhere. * Enoxaparin (Lovenox) (Bahamian) * enoxaparin (Bahamian) [facility]: InstructionsNot on filedocumented in this encounter [facility] filedocumented in this encounter [facility] Summary Purpose Family History No Family History Records FoundNo Family History Records FoundNo Family History Records FoundNo Family History Records FoundNo Family History Records Found Advance Directives No Advanced Directives Records FoundDocuments on File Type Date Recorded Patient Jail Guard Expl anation ACP-Advance Directive ACP-Power of Real Estate Office Supervisor Latest Code Status on File Code Status Date Activated Date Inactivated Comments Full Code 06/01/2019 12:33 PM 06/02/2019 3:05 PM Documents on File Type Date Recorded Patient Jail Guard Expl anation Advance Directives and Living Will Power of Real Estate Office Supervisor Documents on File Type Date Recorded Patient Jail Guard Expl anation Advance Directives and Living Will Power of Real Estate Office Supervisor Latest Code Status on File Code Status Date Activated Date Inactivated Comments Full Code 06/01/2019 12:33 PM Reason for Referral Status Reason Specialty Diagnoses / Procedures Referred By Contact Referred To Contact Pending Review Radiology Diagnoses History of pulmonary embolism Hx of deep venous thrombosis Procedures VL DUP LOWER EXTREMITY VENOUS BILATERAL Consuelo Delgadillo MD [address] [place] [address] Specialty Diagnoses / Procedures Referred By Contac t Referred To Contact Diagnoses Cardiac pacemaker Procedures Device Interrogation Olaf Cain, MAT PACKER-BANK CREDIT CARD COLLECTION CLERK [address] [place] [address] Referral ID Status Reason Start Date Expiration Date V isits Requested Visits Authorized [id number] Pending Review 05/14/2023 05/13/2024 1 1 Additional Source Comments (unrecognized sect ion and content) No Status Records FoundNo Status Records FoundNo Status Records FoundNo Status Records FoundNo Status Records Found INFORMATION SOURCE (unrecogn ized section and content) DATE CREATED AUTHOR 07/14/2019 [facility] DATE CREATED AUTHOR AUTHOR'S ORGANIZ ATION 02/11/2021 [facility] DATE CREATED AUTHOR AUTHOR'S ORGANIZ ATION 05/19/2023 [facility] DATE CREATED AUTHOR AUTHOR'S ORGANIZ ATION 01/07/2024 [facility] DATE CREATED AUTHOR AUTHOR'S ORGANIZ ATION 02/23/2024 [facility] Reason for Visit (unrecogniz ed section and content) Status Reason Specialty Diagnoses / Procedures Referred By Contact Referred To Contact Pending Review Radiology Diagnoses History of pulmonary embolism Hx of deep venous thrombosis Procedures VL DUP LOWER EXTREMITY VENOUS BILATERAL Consuelo Delgadillo MD [address] [place] [address] Status Reason Specialty Diagnoses / Procedures Referre d By Contact Referred To Contact Diagnoses Obesity OBESITY, HYPERTENSION, COPD, HYPOTHYROIDISM, LIPODEMIA Procedures UT LAP, DHARMESH RESTRICT PROC, LONGITUDINAL GASTRECTOMY XI ROBOTIC LAPAROSCOPIC GASTRECTOMY SLEEVE, ENDOSEAL Serafin Shearer MD [address] [place] [address] [facility] Reason Comments Device Check Reason Comments Device Check Care Teams (unrecognized sec tion and content) 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 [facility] [email or web address] [facility]. provides no warranty or guarantee of the accuracy or completeness of information in this document.
--- NOTE | 2024-02-28 12:01 | VEIN_ITS ---
Patient Name: YRN RICARDO MR#: [id number] : 1960 Exam Date: 02/28/2024 Ordering Doctor: DR LEONID SCOTT M.D. RADIOLOGY REPORT PROCEDURE: [facility] EST L[facility]D [facility] - OFFICE VISIT FOLLOW UP [facility] PROGRESS NOTES: The patient reports improvement in leg symptoms. There has been interval reduction in varicosities. The patient has followed our recommendations to walk 20-30 minutes once or twice per day since the procedure. Physical exam demonstrates decrease in varicosities of the leg. Persistent varicosities are identified along the legs bilaterally. Review of the ultrasound performed the same day demonstrates occlusive thrombus extending throughout the treated vein(s), see separate report, consistent with a successful ablation. No thrombus extending into or beyond the saphenofemoral junction. The patient expressed a desire to proceed with treatment of remaining incompetent varicosities. The patient was informed that treatment was a process and would require approximately 1 additional procedure on the right and on the left. VEIN/[facility] EST TD IMPRESSION: 1. Successful ablation of multiple branch saphenous vein(s). 2. Persistent varicose veins and lower extremity symptoms. PLAN: 1. Microfoam chemical ablation of incompetent branch saphenous varicosities within the right leg and then followed by the left leg. Nurse notes, history and physical were reviewed and confirmed, see attached forms. The nurse was present throughout the physical exam and consultation Dictated by: Herman Patiño M.D. on 02/28/2024 at 12:25 Approved by: Herman Patiño M.D. on 02/28/2024 at 12:27
[2024-02-28 12:10] VITALS: BMI 48.2
--- NOTE | 2024-02-28 13:11 | P.DS_ITS ---
Discharge Plan Discharge Disposition: Home, Self-Care Outpatient Diagnostics: VC INJ Foam Sclerosant RICK TERMITE INSPECTOR (Routine) Timeframe: 3 Weeks Facility: [facility] - Location: Vein Center Ordered By: Herman Patiño Follow Up Appointments: 03/12/24 Plan of Treatment: Varithena/microfoam of right leg Print Language: Lithuanian Discharge Date/Time: 02/28/24 13:12
== END 2024-02-28 13:12 | disposition home or self-care (01) ==
PROVIDERS: PCP Radiology Diagnostic Radiology; Visit Provider Radiology Diagnostic Radiology
DX: I80.02 Phlebitis and thrombophlebitis of superficial vessels of left lower extremity (principal)
CPT/HCPCS: 93971; G0463

== ENCOUNTER 2024-03-12 13:12 | Outpatient (OUT) | payer MEDICARE, MEDICAID, SELFPAY ==
--- NOTE | 2024-03-10 15:08 | VEINCLINIC_ITS ---
Vital Signs 03/12/24 15:27 BP 122/70 BP Location Left Brachial BP Position Sitting BP Cuff Size Adult BP Source Manual Cuff Respiration 18 Pulse 80 Pulse Source Monitor Pulse Oximetry (%) 97 Oxygen Delivery Method Room Air Comment The patient's blood pressure is elevated. Varicose Veins Patient in today for Varithena/microfoam chemical ablation right leg. Herman Chaves MD personally performed the services described in this documentation, as scribed by Catalina Baker RN in my presence and it is both accurate and complete. Catalina Chaves RN, am scribing for, and in the presence of, Dr. Herman Patiño and in the presence of the patient. medial thigh: bilateral, knee: bilateral, calf: bilateral, ankle: bilateral and munoz: bilateral burning and sharp 6 11 years Worsened in recent months: Yes standing and sitting bed rest, elevating extremities and compression stockings Reports heaviness, edema and leg edema History of lower extremity trauma: No Superficial thrombophlebitis: No Family history of varicose veins: unknown Has patient had previous lower extremity venous surgery: No Patient has previously received the following treatment(s) for lower extremity varicose veins: Reports none Does patient have a history of : not applicable Does patient intend to have future pregnancies: not applicable Has patient had lower extremity venous scan with relux testing: Yes Support hose used: Yes Problems walking or doing physical activity: Yes How does it affect you: 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 Catalina Chaves RN, am scribing for, and in the presence of, Dr. Herman Patiño and in the presence of the patient. Status of ROS 10 or more systems reviewed and unremark able except as noted in history and below Cardiovascular Reports: edema and swelling of feet/ankles Musculoskeletal Reports: extremity pain and extremity swelling Integumentary/Breast Reports: redness, non-healing lesion and changes in skin color [facility] Medical History (Updated 02/28/24 @ 07:41 by Grecia Bollenbacher) Phlebitis and thrombophlebitis of superficial vessels of left lower extremity ?I80.02 - Phlebitis and thrombophlebitis of superficial vessels of left lower extremity (ICD-10) Thrombophlebitis of superficial veins of left lower extremity ?I80.02 - Phlebitis and thrombophlebitis of superficial vessels of left lower extremity (ICD-10) Phlebitis and thrombophlebitis of superficial vessels of lower extremities, bilateral ?I80.03 - Phlebitis and thrombophlebitis of superficial vessels of lower extremities, bilateral (ICD-10) Phlebitis and thrombophlebitis of superficial vessels of right lower extremity ?I80.01 - Phlebitis and thrombophlebitis of superficial vessels of right lower extremity (ICD-10) Non-healing lumpectomy wound ?T81.89XA - Other complications of procedures, not elsewhere classified, initial encounter (ICD-10) Other reconstructive surgery as the cause of abnormal reaction of the patient, or of later complication, without mention of misadventure at the time of the procedure ?Y83.4 - Other reconstructive surgery as the cause of abnormal reaction of the patient, or of later complication, without mention of misadventure at the time of the procedure (ICD-10) Cubital tunnel syndrome ?G56.20 - Lesion of ulnar nerve, unspecified upper limb (ICD-10) Pacemaker ?Z95.0 - Presence of cardiac pacemaker (ICD-10) Obesity ?E66.9 - Obesity, unspecified (ICD-10) Hypothyroidism ?E03.9 - Hypothyroidism, unspecified (ICD-10) Osteoarthritis ?M19.90 - Unspecified osteoarthritis, unspecified site (ICD-10) DVT (deep venous thrombosis) ?I82.409 - Acute embolism and thrombosis of unspecified deep veins of unspecified lower extremity (ICD-10) Arrhythmia ?I49.9 - Cardiac arrhythmia, unspecified (ICD-10) PVD (peripheral vascular disease) ?I73.9 - Peripheral vascular disease, unspecified (ICD-10) COPD (chronic obstructive pulmonary disease) ?J44.9 - Chronic obstructive pulmonary disease, unspecified (ICD-10) Asthma ?J45.909 - Unspecified asthma, uncomplicated (ICD-10) Lymphedema ?I89.0 - Lymphedema, not elsewhere classified (ICD-10) Venous insufficiency ?I87.2 - Venous insufficiency (chronic) (peripheral) (ICD-10) Varicose veins of bilateral lower extremities with pain ?I83.813 - Varicose veins of bilateral lower extremities with pain (ICD-10) Surgical History (Updated 02/21/24 @ 13:27 by Wild Slade) S/P sclerotherapy of varicose veins ?Z98.890 - Other specified postprocedural states (ICD-10) ?Z86.79 - Personal history of other diseases of the circulatory system (ICD- 10) S/P sclerotherapy of varicose veins ?Z98.890 - Other specified postprocedural states (ICD-10) ?Z86.79 - Personal history of other diseases of the circulatory system (ICD- 10) S/P sclerotherapy of varicose veins ?Z98.890 - Other specified postprocedural states (ICD-10) ?Z86.79 - Personal history of other diseases of the circulatory system (ICD- 10) Status post ablation of incompetent vein using laser ?Z98.890 - Other specified postprocedural states (ICD-10) H/O gastric sleeve ?Z90.3 - Acquired absence of stomach [part of] (ICD-10) Family History (Updated 11/06/23 @ 09:08 by Estefania Dhaliwal) Other Family history not known due to adoption Social History (Updated 11/06/23 @ 09:09 by Estefania Dhaliwal) Within the past year, how often did you have a drink containing alcohol: never Score interpretation: A score less than 4 is consistent with normal alcohol consumption. Smoking status: Never smoker Non-prescribed substance use: denies use Meds Home Medications and Allergies Home Medications ?Medication ?Instructions ?Recorded ?Confirmed ?Type albuterol sulfate 90 mcg/actuation 1 inh inhalation Q6H 11/06/23 11/06/23 History aerosol inhaler aripiprazole 20 mg tablet (Abilify) 20 mg PO DAILY 11/06/23 11/06/23 History cetirizine 10 mg capsule 10 mg PO DAILY PRN angioedema 11/06/23 11/06/23 History citalopram 20 mg tablet (Celexa) 10 mg PO DAILY 11/06/23 11/06/23 History fluticasone propionate 110 1 inh inhalation BID 11/06/23 11/06/23 History mcg/actuation HFA aerosol inhaler levothyroxine 150 mcg tablet 75 mcg PO DAILY 11/06/23 11/06/23 History (Euthyrox) lorazepam 0.5 mg tablet (Ativan) 0.5 mg PO DAILY 11/06/23 11/06/23 History oxybutynin chloride 10 mg 10 mg PO DAILY 11/06/23 11/06/23 History tablet,extended release 24 hr oxycodone-acetaminophen 5 mg-325 1 tab PO DAILY 11/06/23 11/06/23 History mg tablet (Endocet) rivaroxaban 20 mg tablet (Xarelto) 20 mg PO DAILY 11/06/23 11/06/23 History trazodone 100 mg tablet 50 mg PO DAILY 11/06/23 11/06/23 History zolpidem 5 mg tablet (Ambien) 11/06/23 History Allergies Allergy/AdvReac Type Severity Reaction Status Date / Time No Known Drug Allergies Allergy Verified 10/04/23 14:35 Exam Narrative Exam Narrative: IHerman MD personally performed the services described in this documentation, as scribed by Catalina Baker RN in my presence and it is both accurate and complete. ICatalina RN, am scribing for, and in the presence of, Dr. Herman Patiño and in the presence of the patient. Constitutional Documenting provider has reviewed patient's vital signs: yes Common normals: oriented x3 Lymph Lymphatic: no lymphedema noted Cardio Common normals: regular rate Rate: regular rate Peripheral pulses: posterior tibial pulses present and dorsalis pedis pulses present Extremity Common normals: normal capillary refill General: edema Right lower extremity: upper leg and lower leg Left lower extremity: upper leg and lower leg Neuro Common normals: oriented x3 Assessment and Plan Assessment and Plan (1) Varicose veins of bilateral lower extremities with pain: Plan leg microfoam chemical ablation/Varithena: Risks and benefits of the procedure were discussed at length and informed written consent was obtained.? Time-out procedure was performed and the correct patient and procedure were confirmed.? Staff present during time-out: Catalina Baker RN and Herman Patiño MD.? Patient prepped and procedure performed in usual sterile fashion.? Patient was placed in Trendelenburg prior to Polidocanol/Varithena injections. Sclerosing Agent:?? 4cc 1% Polidocanol/Varithena Site Injected: right leg Number of Injections:? 6cc into 5mm vein right anterior distal lower leg 5cc into 6mm vein right proximal medial lower leg The patient tolerated the procedure well without complication.? Hemostasis was obtained and thigh-high compression stocking was applied with foam pads.? Instructed patient to wear stocking for at least 96 hours and sleep with it and only remove for showering.? The patient was instructed to? wear stocking for 2 weeks.? Patient verbalizes understanding and states they will comply.? Patient was given post-procedure instructions. Patient was discharged in good condition.? Scheduled to undergo limited venous ultrasound and? exam on 03/18/24. IHerman MD personally performed the services described in this documentation, as scribed by Catalina Baker RN in my presence and it is both accurate and complete. Catalina Chaves RN, am scribing for, and in the presence of, Dr. Herman Patiño and in the presence of the patient. Procedures Procedure Note Procedure: Varithena/microfoam chemical ablation right leg 03/12/27
--- NOTE | 2024-03-10 15:10 | W.VEIN ---
Discharge Plan Discharge Disposition: Home, Self-Care Outpatient Diagnostics: VC Facility EST LMTD (Routine) Timeframe: 2 Weeks Facility: [facility] - Location: Vein Center Ordered By: Herman Patiño VC EXT Venous RT LMTD (Routine) Timeframe: 2 Weeks Facility: [facility] - Location: Vein Center Ordered By: Herman Patiño Follow Up Appointments: 03/18/24 Plan of Treatment: u/s follow following varithena right lef 03/12/24 Patient Instructions: Polidocanol (By injection) Print Language: Faroese Discharge Date/Time: 03/12/24 14:10
--- NOTE | 2024-03-12 13:15 | VEIN_ITS ---
[address] [address] Patient Name: YRN RICARDO MRN: [id number] date: 1960 Sex: M Assigned Patient Location: Current Patient Location: Accession/Order Number: [id number] Exam Date: 03/12/2024 13:28 Report Date: 03/13/2024 06:51 At the request of: MARCO LYNN Procedure: VC INJ Foam Sclerosant WUS LABORATORY ASSISTANT PROCEDURE: VC INJ Foam Sclerosant WUS LABORATORY ASSISTANT HISTORY: I83.813 - Varicose veins of bilateral lower extremities w... Pre-operative Diagnosis: CEAP class C6 venous insufficiency with pain, tenderness, edema and incompetent branch saphenous vein(s), chronic venous insufficiency right leg secondary to venous incompetence Post-operative Diagnosis: CEAP class C6 venous insufficiency with pain, tenderness, edema and incompetent branch saphenous vein(s), chronic venous insufficiency right leg secondary to venous incompetence Procedure Performed: 1. Ultrasound-guided microfoam chemical ablation with Varithenaregistered 2. Intraoperative ultrasound guidance Physician: Marco Lynn M.D. Anesthesia: None Indications for Procedure: 63 year old male. Symptoms including lower extremity pain, swelling, dilated bulging veins for many years despite conservative medical therapy including medical compression stockings, exercise and analgesics. Prior procedures include endovenous laser ablation and microfoam chemical ablation. Multiple incompetent varicosities of the right leg. Duplex scan showed reflux and enlarged diameters up to 6 mm. The patient underwent informed consent including management options where the complications of infection, bleeding, pain, and skin injury were discussed. Particular attention was spent discussing thrombus extension and deep vein thrombosis as well as the possibility of pulmonary embolus and treatment with oral or injectable blood thinners. Procedure: The patient walked to the procedure room. All applicable staff donned appropriate apparel. A procedure timeout was performed to confirm correct patient, correct extremity, correct procedure, and correct room set-up including presence of all applicable supplies, devices, and drugs. A duplex ultrasound, performed by myself confirmed the location and incompetence of branch saphenous varicosities and their course was marked on the skin together with the dilated tributaries. The extent of treatment of the vein and the associated varicosities was determined through ultrasound mapping. The skin was prepped and then punctured with a butterfly needle and advanced under ultrasound guidance. The Varithenaregistered canister was activated and the canister was primed and purged as required in the instructions for use. Varithenaregistered was drawn into a sterile syringe. Varithenaregistered was slowly administered at 0.5-1.0 cc/second with close observation by ultrasound of its course in the vessels. Total volume utilized was: 11 mL (6 mL into a 5 mm varicosity anterior distal lower leg; 5 mL into a 6 mm varicosity proximal medial lower leg). Following administration of Varithenaregistered the leg was elevated and the patient was asked to repeatedly dorsiflex the ankle to limit flow of Varithenaregistered into perforating veins. Once appropriate spasm had been confirmed in the treated veins, the vascular catheter was removed from the leg and light pressure was applied over the puncture site for hemostasis. The common femoral and deep superficial veins were then evaluated for flow and compressibility prior to dressing placement. The lower extremity was kept elevated at 45 degrees above the horizontal and cording material was applied over the saphenous segments and tributaries to allow for eccentric compression over the target vessels including the targeted saphenous vein(s). A multilayer dressing was applied consisting of foam pads, coban and thigh-high 20-30 mm Hg compression elastic support hose were placed on the patient. The leg was lowered only after compression had been applied and the patient was immediately ambulatory. The patient ambulated 10 minutes under supervision and was without apparent concerns at time of release. Post-care instructions include advising patient to keep post-treatment bandages in place and dry for 48 hours, avoid extended periods of inactivity, avoid heavy exercise for one week, wear compression stockings on the treated leg continuously for two weeks, to walk daily for 10 minutes over the next month. The patient was instructed to take an anti-inflammatory medicine as needed and to follow up for color duplex scan of the Saphenous veins, the treated branch saphenous varicosities, the adjacent deep veins, and additional treatment within 7 days. PERSONNEL: Catalina Baker RN Electronically authenticated by: MARCO LYNN Date: 03/13/2024 06:51
[2024-03-12 15:27] VITALS: BP 122/70; PULSE 80; O2SAT 97
== END 2024-03-12 14:10 | disposition home or self-care (01) ==
LOC: VC 13:13
PROVIDERS: PCP Radiology Diagnostic Radiology; Visit Provider Radiology Diagnostic Radiology
DX: I83.813 Varicose veins of bilateral lower extremities with pain (principal)
CPT/HCPCS: 36466

== ENCOUNTER 2024-03-18 14:05 | Outpatient (OUT) | payer MEDICARE, MEDICAID, SELFPAY ==
[2024-03-18 09:57] VITALS: BMI 48.2
--- NOTE | 2024-03-18 09:57 | VEINCLINIC_ITS ---
Vital Signs 03/18/24 09:57 Height 6 ft 3 in Weight 175 kg BMI 48.2 Varicose Veins Patient in today for follow up ultrasound of right lower extremity following treatment of Varithena/microfoam completed on 03/12/24. Trino Chaves MD personally performed the services described in this documentation, as scribed by Grecia Nielsen RDMS in my presence and it is both accurate and complete. Grecia Chaves RDMS, am scribing for, and in the presence of, Dr. Trino Israel and in the presence of the patient. medial thigh: bilateral, knee: bilateral, calf: bilateral, ankle: bilateral and munoz: bilateral burning and sharp 6 11 years Worsened in recent months: Yes standing and sitting bed rest, elevating extremities and compression stockings Reports heaviness, edema and leg edema History of lower extremity trauma: No Superficial thrombophlebitis: No Family history of varicose veins: unknown Has patient had previous lower extremity venous surgery: No Patient has previously received the following treatment(s) for lower extremity varicose veins: Reports none Does patient have a history of : not applicable Does patient intend to have future pregnancies: not applicable Has patient had lower extremity venous scan with relux testing: Yes Support hose used: Yes Problems walking or doing physical activity: Yes How does it affect you: 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 Grecia Chaves RDMS, am scribing for, and in the presence of, Dr. Trino Israel and in the presence of the patient. Status of ROS 10 or more systems reviewed and unremark able except as noted in history and below Cardiovascular Reports: edema and swelling of feet/ankles Musculoskeletal Reports: extremity pain and extremity swelling Integumentary/Breast Reports: redness, non-healing lesion and changes in skin color [facility] Medical History (Updated 02/28/24 @ 07:41 by Grecia Nielsen) Phlebitis and thrombophlebitis of superficial vessels of left lower extremity ?I80.02 - Phlebitis and thrombophlebitis of superficial vessels of left lower extremity (ICD-10) Thrombophlebitis of superficial veins of left lower extremity ?I80.02 - Phlebitis and thrombophlebitis of superficial vessels of left lower extremity (ICD-10) Phlebitis and thrombophlebitis of superficial vessels of lower extremities, bilateral ?I80.03 - Phlebitis and thrombophlebitis of superficial vessels of lower extremities, bilateral (ICD-10) Phlebitis and thrombophlebitis of superficial vessels of right lower extremity ?I80.01 - Phlebitis and thrombophlebitis of superficial vessels of right lower extremity (ICD-10) Non-healing lumpectomy wound ?T81.89XA - Other complications of procedures, not elsewhere classified, initial encounter (ICD-10) Other reconstructive surgery as the cause of abnormal reaction of the patient, or of later complication, without mention of misadventure at the time of the procedure ?Y83.4 - Other reconstructive surgery as the cause of abnormal reaction of the patient, or of later complication, without mention of misadventure at the time of the procedure (ICD-10) Cubital tunnel syndrome ?G56.20 - Lesion of ulnar nerve, unspecified upper limb (ICD-10) Pacemaker ?Z95.0 - Presence of cardiac pacemaker (ICD-10) Obesity ?E66.9 - Obesity, unspecified (ICD-10) Hypothyroidism ?E03.9 - Hypothyroidism, unspecified (ICD-10) Osteoarthritis ?M19.90 - Unspecified osteoarthritis, unspecified site (ICD-10) DVT (deep venous thrombosis) ?I82.409 - Acute embolism and thrombosis of unspecified deep veins of unspecified lower extremity (ICD-10) Arrhythmia ?I49.9 - Cardiac arrhythmia, unspecified (ICD-10) PVD (peripheral vascular disease) ?I73.9 - Peripheral vascular disease, unspecified (ICD-10) COPD (chronic obstructive pulmonary disease) ?J44.9 - Chronic obstructive pulmonary disease, unspecified (ICD-10) Asthma ?J45.909 - Unspecified asthma, uncomplicated (ICD-10) Lymphedema ?I89.0 - Lymphedema, not elsewhere classified (ICD-10) Venous insufficiency ?I87.2 - Venous insufficiency (chronic) (peripheral) (ICD-10) Varicose veins of bilateral lower extremities with pain ?I83.813 - Varicose veins of bilateral lower extremities with pain (ICD-10) Surgical History (Updated 02/21/24 @ 13:27 by Wild Slade) S/P sclerotherapy of varicose veins ?Z98.890 - Other specified postprocedural states (ICD-10) ?Z86.79 - Personal history of other diseases of the circulatory system (ICD- 10) S/P sclerotherapy of varicose veins ?Z98.890 - Other specified postprocedural states (ICD-10) ?Z86.79 - Personal history of other diseases of the circulatory system (ICD- 10) S/P sclerotherapy of varicose veins ?Z98.890 - Other specified postprocedural states (ICD-10) ?Z86.79 - Personal history of other diseases of the circulatory system (ICD- 10) Status post ablation of incompetent vein using laser ?Z98.890 - Other specified postprocedural states (ICD-10) H/O gastric sleeve ?Z90.3 - Acquired absence of stomach [part of] (ICD-10) Family History (Updated 11/06/23 @ 09:08 by Estefania Dhaliwal) Other Family history not known due to adoption Social History (Updated 11/06/23 @ 09:09 by Estefania Dhaliwal) Within the past year, how often did you have a drink containing alcohol: never Score interpretation: A score less than 4 is consistent with normal alcohol consumption. Smoking status: Never smoker Non-prescribed substance use: denies use Meds Home Medications and Allergies Home Medications ?Medication ?Instructions ?Recorded ?Confirmed ?Type albuterol sulfate 90 mcg/actuation 1 inh inhalation Q6H 11/06/23 11/06/23 History aerosol inhaler aripiprazole 20 mg tablet (Abilify) 20 mg PO DAILY 11/06/23 11/06/23 History cetirizine 10 mg capsule 10 mg PO DAILY PRN angioedema 11/06/23 11/06/23 History citalopram 20 mg tablet (Celexa) 10 mg PO DAILY 11/06/23 11/06/23 History fluticasone propionate 110 1 inh inhalation BID 11/06/23 11/06/23 History mcg/actuation HFA aerosol inhaler levothyroxine 150 mcg tablet 75 mcg PO DAILY 11/06/23 11/06/23 History (Euthyrox) lorazepam 0.5 mg tablet (Ativan) 0.5 mg PO DAILY 11/06/23 11/06/23 History oxybutynin chloride 10 mg 10 mg PO DAILY 11/06/23 11/06/23 History tablet,extended release 24 hr oxycodone-acetaminophen 5 mg-325 1 tab PO DAILY 11/06/23 11/06/23 History mg tablet (Endocet) rivaroxaban 20 mg tablet (Xarelto) 20 mg PO DAILY 11/06/23 11/06/23 History trazodone 100 mg tablet 50 mg PO DAILY 11/06/23 11/06/23 History zolpidem 5 mg tablet (Ambien) 11/06/23 History Allergies Allergy/AdvReac Type Severity Reaction Status Date / Time No Known Drug Allergies Allergy Verified 10/04/23 14:35 Exam Narrative Exam Narrative: Trino Chaves MD personally performed the services described in this documentation, as scribed by Grecia Nielsen RDMS in my presence and it is both accurate and complete. Grecia Chaves RDMS, am scribing for, and in the presence of, Dr. Trino Israel and in the presence of the patient. Constitutional Documenting provider has reviewed patient's vital signs: yes Common normals: oriented x3 Lymph Lymphatic: no lymphedema noted Cardio Common normals: regular rate Rate: regular rate Peripheral pulses: posterior tibial pulses present and dorsalis pedis pulses present Extremity Common normals: normal capillary refill General: edema Right lower extremity: upper leg and lower leg Left lower extremity: upper leg and lower leg Neuro Common normals: oriented x3 Results Imaging Venous US: Radiologist's impression: Chemically induced thrombus in right leg varicose veins. Trino Chaves MD personally performed the services described in this documentat ion, as scribed by Grecia Nielsen RDMS in my presence and it is both accurate and complete. Grecia Chaves RDMS, am scribing for, and in the presence of, Dr. Trino Israel and in the presence of the patient. Assessment and Plan Assessment and Plan (1) Phlebitis and thrombophlebitis of superficial vessels of right lower extremity: Plan Patient is finished with treatment at this time. Follow up as needed or in 1-2 years. I, Trino Israel MD personally performed the services described in this documentation, as scribed by Grecia Nielsen RDMS in my presence and it is both accurate and complete. I, Grecia Nielsen RDMS, am scribing for, and in the presence of, Dr. Trino Israel and in the presence of the patient.
--- NOTE | 2024-03-18 14:07 | VEIN_ITS ---
Patient Name: YRN RICARDO MR#: [id number] : 1960 Exam Date: 03/18/2024 Ordering Doctor: DR MARCO LYNN M.D. RADIOLOGY REPORT PROCEDURE: [facility] - OFFICE VISIT FOLLOW UP COMPARISON: [facility], 02/28/2024. [facility], 02/05/2024. PROGRESS NOTES: The patient reports no significant problems following micro foam chemical ablation of incompetent right leg varicose veins. The patient reports marked improvement in his lower extremity pain swelling skin thickening and complete resolution of his venous stasis ulcerations which she has struggled with over the past 6 years. Physical exam demonstrates no residual varicose veins. While hemosiderin staining remains as expected, patient's skin is thin and there is no subcutaneous edema. Review of the ultrasound performed the same day demonstrates occlusive thrombus extending throughout the treated vein(s), with no deep vein thrombus. At this time the patient's treatments are completed. I recommended a 12 month follow-up. VEIN/[facility] IMPRESSION: 1. Successful ablation of treated incompetent right leg varicose veins 2. Treatment plan is complete. PLAN: Follow-up in 12 months Nurse notes, history and physical were reviewed and confirmed, see attached forms. The nurse was present throughout the physical exam and consultation Dictated by: Trino Israel MD on 03/18/2024 at 15:04 Approved by: Trino Israel MD on 03/18/2024 at 15:08
--- NOTE | 2024-03-18 14:07 | VEIN_ITS ---
Patient Name: YRN RICARDO MR#: [id number] : 1960 Exam Date: 03/18/2024 Ordering Doctor: DR MARCO LYNN M.D. RADIOLOGY REPORT PROCEDURE: VC EXT VENOUS RT LMTD COMPARISON: [facility] EXT VENOUS RT LMTD, 02/05/2024. VC EXT VENOUS RT LMTD, 12/25/2023. INDICATIONS: I80.01 - Phlebitis and thrombophlebitis of superficial veins right leg TECHNIQUE: Lower extremity nuñez scale and Duplex Doppler evaluation of the deep venous system from the inguinal ligament through the calf veins. FINDINGS: REGION: Right lower extremity. THROMBI: Negative for DVT. Chemically induced thrombus in multiple varicose veins. COMPRESSIBILITY: Non-compressible segments corresponding to thrombus FLOW: Areas of no flow corresponding to thrombus CONCLUSION: Post ablation occlusion of treated right leg varicose veins Dictated by: Trino Israel MD on 03/18/2024 at 15:00 Approved by: Trino Israel MD on 03/18/2024 at 15:01
--- NOTE | 2024-03-18 15:44 | W.VEIN ---
Discharge Plan Discharge Disposition: Home, Self-Care Discharge Medications: No Action lorazepam [Ativan] 0.5 mg tablet 0.5 mg PO DAILY cetirizine 10 mg capsule 10 mg PO DAILY PRN (Reason: angioedema) aripiprazole [Abilify] 20 mg tablet 20 mg PO DAILY albuterol sulfate 90 mcg/actuation HFA aerosol inhaler 1 inh inhalation Q6H Xarelto 20 mg tablet 20 mg PO DAILY Rx Instructions: must administer with evening meal fluticasone propionate 110 mcg/actuation HFA aerosol inhaler 1 inh inhalation BID oxycodone-acetaminophen [Endocet] 5-325 mg tablet 1 tab PO DAILY zolpidem [Ambien] 5 mg tablet citalopram [Celexa] 20 mg tablet 10 mg PO DAILY trazodone 100 mg tablet 50 mg PO DAILY levothyroxine [Euthyrox] 150 mcg tablet 75 mcg PO DAILY oxybutynin chloride 10 mg tablet extended release 24hr 10 mg PO DAILY Follow Up Appointments: 1-2 years Plan of Treatment: Finished with treatment at this time. Print Language: Czech Discharge Date/Time: 03/18/24 15:49
== END 2024-03-18 15:49 | disposition home or self-care (01) ==
PROVIDERS: PCP Radiology Diagnostic Radiology; Visit Provider Radiology Diagnostic Radiology
DX: I80.01 Phlebitis and thrombophlebitis of superficial vessels of right lower extremity (principal)
CPT/HCPCS: 93971; G0463